=== PATIENT | male | born 1965 | race Caucasian/White ===

== ENCOUNTER 2019-06-14 07:38 | Outpatient (CLI) | payer OTHER, SELFPAY ==
--- NOTE | ~2019-06-14 | XR_ITS ---
EXAMINATION: XR chest 2V DATE: 06/14/2019 08:02 INDICATION: Lung nodule TECHNIQUE: PA and lateral views of the chest are obtained. COMPARISON: None available FINDINGS: There is a small right pleural effusion. Airspace opacities are present in the right middle and lower lobes. The left lung is clear. There is no pneumothorax. The cardiomediastinal silhouette is normal. There is mild thoracic spondylosis. IMPRESSION: 1. Small right pleural effusion. 2. Airspace opacities of the right middle and lower lobes, consistent with atelectasis versus pneumon ia. Reviewed, dictated and finalized at location A. IMPRESSION: 1. Small right pleural effusion. 2. Airspace opacities of the right middle and lower lobes, consistent with atel ectasis versus pneumonia.
== END 2019-06-14 07:39 | disposition home or self-care (01) ==
PROVIDERS: PCP Registered Nurse
DX: R91.1 Solitary pulmonary nodule (principal); J90 Pleural effusion, not elsewhere classified; R91.8 Other nonspecific abnormal finding of lung field
CPT/HCPCS: 71046

== ENCOUNTER 2019-06-28 07:26 | Outpatient (CLI) | payer OTHER, SELFPAY ==
--- NOTE | ~2019-06-28 | XR_ITS ---
XR chest 2V 06/28/2019 08:01 Indication: Postop surgical removal of lung nodule. Procedure: PA and lateral views of the chest Comparison: 06/14/2019 Findings: Heart size is normal. Left lung clear. There is right basilar airspace consolidation. Small right pleural effusion. No pneumothorax. No edema. There are right fifth and sixth rib fractures. Impression: 1: Airspace consolidation right mid and lower lung which may be atelectasis or pneumonia. Correlate f or site of prior surgery. 2: Small right pleural effusion. 3: Right fifth and sixth rib fractures. Reviewed, dictated and finalized at location A. Impression: 1: Airspace consolidation right mid and lower lung which may be atelectasis or pneumonia. Correlate for site of prior surgery. 2: Small right pleural effusion. 3: Right fifth and sixth rib fractures.
== END 2019-06-28 07:27 | disposition home or self-care (01) ==
PROVIDERS: PCP Registered Nurse
DX: R91.1 Solitary pulmonary nodule (principal); S22.41XA Multiple fractures of ribs, right side, initial encounter for closed fracture; X58.XXXA Exposure to other specified factors, initial encounter
CPT/HCPCS: 71046

== ENCOUNTER 2022-05-11 12:19 | Emergency (ER) | payer OTHER, SELFPAY ==
--- NOTE | ~2022-05-11 | XR_ITS ---
XR chest 2V DATE: 05/11/2022 12:43 INDICATION: Cough, shortness of breath. History of lung cancer, right lower lobectomy TECHNIQUE: 2 views COMPARISON: 06/28/2019 PA and lateral chest FINDINGS: Loss of right lung consistent with history of right lower lobectomy for lung cancer. Normal heart size. No pulmonary infiltrate or consolidation, pleural effusion or pulmonary vascular c ongestion or pneumothorax is evident. Degenerative spurring of the thoracic and lumbar spine. IMPRESSION: Status post right lower lobectomy for lung cancer Reviewed, dictated and finalized at location A. 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
[2022-05-11 12:26] VITALS: BP 146/72; PULSE 80; RESP 20; TEMP 36.5; O2SAT 98
[2022-05-11 12:28] VITALS: BP 146/72; PULSE 80; RESP 20; TEMP 36.5; O2SAT 98
--- NOTE | 2022-05-11 12:52 | ED.URI ---
HPI - URI/Sore Throat General Chief Complaint: Upper Respiratory Infection Stated Complaint: Congestion,Cough Time Seen by Provider: 05/11/22 12:31 Source: patient Mode of arrival: ambulatory Limitations: no limitations History of Present Illness HPI Narrative: Patient presents today complaining of a 3 week history of productive cough, shortness of breath with exertion x2 weeks, wheezing. Denies fever, congestion, rhinorrhea, sore throat. Patient has history of lung cancer with right lower lobe lobectomy in 2019 and was subsequently diagnosed with asthma. He has never been a smoker. He called his haul cane brakeman on 05/02/2022 and was called in a Z-Alex and Ushahidi Dosepak for his symptoms. States he took all of these medications without relief of symptoms. He has also been trying NyQuil and Sudafed without relief. Related Data Home Medications Medication Instructions Recorded Confirmed amlodipine 10 mg tablet 10 mg PO DAILY 01/28/19 05/11/22 cetirizine 10 mg capsule (Zyrtec) 10 mg PO DAILY 01/28/19 05/11/22 pravastatin 20 mg tablet 20 mg PO DAILY 01/28/19 05/11/22 albuterol sulfate 90 mcg/actuation 2 puff inhalation PRN PRN 05/11/22 05/11/22 aerosol inhaler Shortness Of Breath Or Wheezing fluticasone fur. 100 mcg-umeclid 1 inh inhalation DAILY 05/11/22 05/11/22 62.5 mcg-vilant 25 mcg inhalat.powder (Trelegy Ellipta) montelukast 10 mg tablet 10 mg PO HS 05/11/22 05/11/22 pantoprazole 40 mg tablet,delayed 40 mg PO DAILY 05/11/22 05/11/22 release Allergies Allergy/AdvReac Type Severity Reaction Status Date / Time No Known Allergies Allergy Mild Verified 05/11/22 12:25 Review of Systems Review of Systems: CONSTITUTIONAL: Denies body aches, fever, chills, or sweats. EYES: Denies visual changes, redness, or discharge. ENT: Denies rhinorrhea, congestion, sore throat, or otalgia. CARDIOVASCULAR: Denies chest pain, palpitations, or edema. RESPIRATORY: + cough, shortness of breath, wheezing GASTROINTESTINAL: Denies abdominal pain, nausea, vomiting, or diarrhea. GENITOURINARY: Denies dysuria or hematuria. SKIN: Denies rash, itching, or wounds. MUSCULOSKELETAL: Denies back pain, joint pain, or myalgia. NEUROLOGIC: Denies headache, numbness, tingling, or weakness. PSYCH: Denies depression or anxiety. FOR[facility]LY [facility], [facility] Past Medical History Medical History (Updated 05/11/22 @ 13:33 by Imelda Raines, DOG SITTER, ) Asthma Dyslipidemia History of hypertension Lung cancer Surgical History Surgical History (Updated 05/11/22 @ 12:54 by Imelda Raines, [facility], ) History of appendectomy S/P lobectomy of lung Social History Social History Smoking status: Never smoker Gender identity (if verbalized by the patient): Male Comments At time of signature, I have reviewed and agree with nursing past medical, surgical, social and family history unless otherwise noted. Please see nursing chart for further information. There is no relevant family history pertinent to the presenting complaint Exam Narrative: GENERAL: Well-appearing, well-nourished, and in no acute distress. HEAD: Normocephalic, atraumatic. EYES: EOMI. No redness or drainage. Conjunctivae normal. ENT: Mucous membranes pink and moist. Nares clear. No rhinorrhea. TMs normal bilaterally. Throat normal. Uvula midline. NECK: Normal AROM. Supple. No lymphadenopathy. CHEST: No respiratory distress. Inspiratory and expiratory wheezing throughout. HEART: Regular rate and rhythm. No murmur appreciated. Normal peripheral pulses. EXTREMITIES: Normal range of motion. No edema. SKIN: Warm, dry, no rash. Capillary refill normal. Normal skin turgor. NEURO: No focal deficits. Alert and oriented x3. Gait steady. PSYCH: Normal affect. No signs of depression or anxiety. Course Course Level of Care: Express Care Visit Vital Signs Vital signs: Vital Signs Temperature 97.7 F 05/11/22 12:26 Pulse Rate
[2022-05-11] MEDS: IPRATROPIUM BR 0.02% INH SOLN 0.5 MG/2.5 ML VIAL INHALATION (13:03)
[2022-05-11] MEDS: ALBUTEROL SULFATE NEB 2.5 MG/3 ML INH INHALATION (13:04)
[2022-05-11 13:10] VITALS: PULSE 80; RESP 20; O2SAT 98
[2022-05-11 13:28] VITALS: PULSE 92; RESP 20; O2SAT 98
== END 2022-05-11 13:40 | disposition home or self-care (01) ==
PROVIDERS: Emergency Provider Nurse Practitioner; PCP Registered Nurse
DX: J45.901 Unspecified asthma with (acute) exacerbation (principal); E78.5 Hyperlipidemia, unspecified; I10 Essential (primary) hypertension; Z85.118 Personal history of other malignant neoplasm of bronchus and lung; Z90.2 Acquired absence of lung [part of]
CPT/HCPCS: 71046; 94640; 99213; G0463

== ENCOUNTER 2022-06-19 16:19 | Emergency (ER) | payer OTHER, SELFPAY ==
--- NOTE | ~2022-06-19 | XR_ITS ---
EXAMINATION: XR foot LT min 3V DATE: 06/19/2022 16:46 INDICATION: Left foot pain TECHNIQUE: Dorsoplantar, lateral, and oblique views of the left foot were obtained. COMPARISON: None. FINDINGS: There is dorsal soft tissue swelling of the foot. Bone alignment is normal. There is no fra cture. Posterior and plantar calcaneal enthesophytes are noted. IMPRESSION: 1. No acute osseous abnormality. Reviewed, dictated and finalized at location L.
--- NOTE | 2022-06-19 16:28 | ED.LOWEXIN ---
HPI - Extremity Injury (Lower) General Chief Complaint: Extremity Injury, Lower Stated Complaint: lt foot injury Time Seen by Provider: 06/19/22 16:28 Source: patient Mode of arrival: ambulatory Limitations: no limitations History of Present Illness HPI Narrative: Patient is a 57-year-old male who presents with left foot pain and swelling after dropping a table on it while loading into a truck. States foot did not start hurting or swelling until he took his tennis shoe off and was sitting on a conference call. Patient states he then sat in the recliner with it elevated and iced his foot. Has not taken anything for pain. Reports pain is 7/10 while walking. Denies any numbness or tingling. Related Data Home Medications Medication Instructions Recorded Confirmed amlodipine 10 mg tablet 10 mg PO DAILY 01/28/19 05/11/22 pravastatin 20 mg tablet 20 mg PO DAILY 01/28/19 05/11/22 albuterol sulfate 90 mcg/actuation 2 puff inhalation PRN PRN 05/11/22 05/11/22 aerosol inhaler Shortness Of Breath Or Wheezing montelukast 10 mg tablet 10 mg PO HS 05/11/22 05/11/22 pantoprazole 40 mg tablet,delayed 40 mg PO DAILY 05/11/22 05/11/22 release fluticasone fur. 100 mcg-umeclid 2 inh inhalation DAILY 06/19/22 06/19/22 62.5 mcg-vilant 25 mcg inhalat.powder (Trelegy Ellipta) Allergies Allergy/AdvReac Type Severity Reaction Status Date / Time No Known Allergies Allergy Mild Verified 06/19/22 16:39 Review of Systems Review of Systems: All systems reviewed & are unremarkable except as noted in HPI and below Constitutional: Constitutional: Denies body ache(s), Denies fever(s), Denies headache(s), Denies malaise and Denies weakness Eyes: Eyes: Denies loss of vision ENT: Denies otalgia, Denies headache(s), Denies nasal discharge, Denies sinus pain and Denies sore throat Cardiovascular: Cardiovascular: Denies chest pain, Denies irregular heart rhythm and Denies dyspnea Respiratory: Respiratory: Denies dyspnea Gastrointestinal: Gastrointestinal: Denies abdominal pain, Denies melena, Denies hematochezia, Denies diarrhea, Denies nausea and Denies vomiting Musculoskeletal: Musculoskeletal: Denies back pain, Denies myalgias, Denies arthralgias and Reports other (Left foot pain) Integumentary/Breasts: Skin/Breast: Denies pruritus and Denies rash Neurologic: Denies headache(s), Denies loss of vision and Denies weakness Psychiatric: Psychiatric: Reports no additional psychiatric complaints PMF Past Medical History Medical History (Updated 06/19/22 @ 17:01 by Анна Claros, DRY CLEANING 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) Asthma Dyslipidemia History of hypertension Lung cancer Surgical History Surgical History (Updated 05/11/22 @ 12:54 by Imelda Raines, [facility], ) History of appendectomy S/P lobectomy of lung Social History Social History Smoking status: Never smoker Gender identity (if verbalized by the patient): Male Comments At time of signature, agree with nursing past medical, surgical, social and family history. There is no relevant family history pertinent to the presenting complaint. Exam Const: General: cooperative, healthy appearing, comfortable, no acute distress and well nourished Nutritional Appearance: well nourished Orientation/consciousness: patient oriented x3 Limitations: no limitations HENMT: Head: normal to inspection, normocephalic and atraumatic Ears: external ears normal Face/Nose/Sinus: Normal external nose present, normal facial exam and face symmetric Face and sinus: normal facial exam and face symmetric Mouth: Yes lip normal Eyes: General: appearance normal, both eyes and all related structures Alignment and Position: alignment normal and position normal Periorbital: periorbital findings normal Eyelids: eyelids normal Pupils: Equal, round and reactive pupils present EOM: EOMs intact bilaterally Neck: Neck: normal visual inspection and full ROM Chest:
[2022-06-19 16:31] VITALS: BP 147/90; PULSE 77; RESP 20; TEMP 36.1; O2SAT 100
== END 2022-06-19 17:06 | disposition home or self-care (01) ==
PROVIDERS: Emergency Provider Nurse Practitioner Family; PCP Registered Nurse
DX: S93.602A Unspecified sprain of left foot, initial encounter (principal); W20.8XXA Other cause of strike by thrown, projected or falling object, initial encounter; J45.909 Unspecified asthma, uncomplicated; E78.5 Hyperlipidemia, unspecified; I10 Essential (primary) hypertension; Z85.118 Personal history of other malignant neoplasm of bronchus and lung; Z90.2 Acquired absence of lung [part of]
CPT/HCPCS: 73630; 99213; G0463

== ENCOUNTER 2022-08-30 09:17 | Emergency (ER) | payer OTHER, SELFPAY ==
--- NOTE | ~2022-08-30 | XR_ITS ---
XR chest 2V DATE: 08/30/2022 09:51 INDICATION: Productive cough for 3 days. History of lung cancer. TECHNIQUE: 2 views COMPARISON: May 11, 2022 2 view chest FINDINGS: Status post right thoracotomy and partial pneumonectomy, with chronic right lung volume los s, chronic blunting of the right costophrenic angle. There is stable chronic right basilar atelectasis or scarring. No interval pulmonary infiltrate or consolidation, pleural effusion, probably vascular congestion or pneumothorax since May 11, 2022 is evident. Heart size is normal. Diffuse idiopathic skeletal hyperostosis of the thoracic spine. Degenerative spurring of the thoracic and lumbar spine is noted. IMPRESSION: Status post right thoracotomy and partial pneumonectomy; no significant change since 2022 Reviewed, dictated and finalized at location A. IMPRESSION: Status post right thoracotomy and partial pneumonectomy; no signifi cant change since May 11, 2022
[2022-08-30 09:20] VITALS: BP 152/83; PULSE 84; RESP 18; TEMP 36.3; O2SAT 98
--- NOTE | 2022-08-30 09:35 | ED.URI ---
HPI - URI/Sore Throat General Chief Complaint: Upper Respiratory Infection Stated Complaint: Congestion,Wheezing Time Seen by Provider: 08/30/22 09:35 Source: patient Mode of arrival: ambulatory Limitations: no limitations History of Present Illness HPI Narrative: 57 y/o male with history of asthma and lung cancer ( right lower lobectomy 2019) presented for c/o cough and crackling in chest for about 3 days. Endorses chronic cough, currently cough is wet but not productive. Also reports head fullness and bilateral ear pressure. Patient's symptoms started the day after arriving in [place]. States he felt symptoms were worse when laying down. When he returned home yesterday, he was able to lay flat without difficulty. Patient contacted utility forester yesterday, started on Z-pack and steroids. Taking scheduled Trelegy and albuterol PRN. Denies chest pain, palpitations, sob, n/v/d/f/c. Scheduled to establish with pattern fitter. Related Data Home Medications Medication Instructions Recorded Confirmed amlodipine 10 mg tablet 10 mg PO DAILY 01/28/19 08/30/22 pravastatin 20 mg tablet 20 mg PO DAILY 01/28/19 08/30/22 albuterol sulfate 90 mcg/actuation 2 puff inhalation PRN PRN 05/11/22 08/30/22 aerosol inhaler Shortness Of Breath Or Wheezing montelukast 10 mg tablet 10 mg PO HS 05/11/22 08/30/22 pantoprazole 40 mg tablet,delayed 40 mg PO DAILY 05/11/22 08/30/22 release fluticasone fur. 100 mcg-umeclid 2 inh inhalation DAILY 06/19/22 08/30/22 62.5 mcg-vilant 25 mcg inhalat.powder (Trelegy Ellipta) Allergies Allergy/AdvReac Type Severity Reaction Status Date / Time No Known Allergies Allergy Mild Verified 08/30/22 09:18 Review of Systems Review of Systems: CONSTITUTIONAL: Denies body aches, fever, chills, or sweats. EYES: Denies visual changes, redness, or discharge. ENT: Denies rhinorrhea, congestion, sore throat, or otalgia. CARDIOVASCULAR: Denies chest pain, palpitations, or edema. RESPIRATORY: Reports cough, wheezing. Denies sob GASTROINTESTINAL: Denies abdominal pain, nausea, vomiting, or diarrhea. GENITOURINARY: Denies dysuria or hematuria. SKIN: Denies rash, itching, or wounds. MUSCULOSKELETAL: Denies back pain, joint pain, or myalgia. NEUROLOGIC: Denies headache, numbness, tingling, or weakness. All systems reviewed & are unremarkable except as noted in HPI and below PMFSH Past Medical History Medical History Asthma Dyslipidemia History of hypertension Lung cancer Surgical History Surgical History History of appendectomy S/P lobectomy of lung Social History Social History Smoking status: Never smoker Gender identity (if verbalized by the patient): Male Comments At time of signature, I have reviewed and agree with nursing past medical, surgical, social and family history unless otherwise noted. Please see nursing chart for further information. There is no relevant family history pertinent to the presenting complaint Exam Narrative: GENERAL: Well-appearing, in no acute distress. EYES: EOMI. No redness or drainage. Conjunctivae normal. ENT: Mucous membranes pink and moist. No rhinorrhea. TMs normal bilaterally. Throat normal. Uvula midline. NECK: Normal AROM. Supple. CHEST: No respiratory distress. Absent RLL. Mild exp Wheezing to all ashraf. HEART: Regular rate and rhythm. No murmur appreciated. ABDOMEN: Soft, nontender, nondistended, normal active bowel sounds. EXTREMITIES: Normal range of motion. No edema. SKIN: Warm, dry, no rash. Capillary refill normal. Normal skin turgor. NEURO: Alert and oriented x3. Gait steady. PSYCH: Normal affect. Course Course Emergency Course: Patient is aware of diagnosis, understands and agrees to treatment plan. Anticipatory guidance given. Patient agrees to follow-up
== END 2022-08-30 10:28 | disposition home or self-care (01) ==
PROVIDERS: Emergency Provider Nurse Practitioner Family; PCP Registered Nurse
DX: J40 Bronchitis, not specified as acute or chronic (principal); Z85.118 Personal history of other malignant neoplasm of bronchus and lung; Z90.2 Acquired absence of lung [part of]; E78.5 Hyperlipidemia, unspecified; I10 Essential (primary) hypertension
CPT/HCPCS: 71046; 99213; G0463

== ENCOUNTER 2022-12-12 13:30 | Emergency (ER) | payer OTHER, SELFPAY ==
--- NOTE | ~2022-12-12 | XR_ITS ---
EXAMINATION: XR foot LT min 3V DATE: 12/12/2022 13:55 INDICATION: Left fifth metatarsal pain post injury 2 days prior TECHNIQUE: Dorsoplantar, two oblique and lateral views of the left foot were obtained. COMPARISON: 06/19/2022 FINDINGS: Nondisplaced transverse fracture crossing the proximal metaphysis of the left fifth metatarsal. The m edial margin of the fracture is located 1 cm distal to the proximal articular surface. Alignment shefali ins essentially anatomic. No other fractures identified. 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 Remaining joint spaces appear relatively preserved. Small Achilles and plantar calcan eal spurs. Soft tissue swelling at the dorsolateral aspect of the mid and proximal forefoot in the re gion of the fracture. No ankle joint effusion. IMPRESSION: 1. Nondisplaced proximal metaphyseal fracture of the left fifth metatarsal. Reviewed, dictated and finalized at location A.
--- NOTE | 2022-12-12 13:42 | ED.GENADULT ---
HPI - General Adult General Chief complaint: Extremity Injury, Lower Stated complaint: lt foot pain and swelling Time Seen by Provider: 12/12/22 13:42 Source: patient, RN notes reviewed and old records reviewed Mode of arrival: ambulatory Limitations: no limitations History of Present Illness HPI narrative: 57-year-old male presents to the [facility] with complaints of left pain and swelling. Patient states 2 days ago felt a pain and a pop to the lateral left foot. Tenderness to the proximal 5th metatarsal Onset (ago): day(s) (2) Related Data Home Medications Medication Instructions Recorded Confirmed amlodipine 10 mg tablet 10 mg PO DAILY 01/28/19 12/12/22 pravastatin 20 mg tablet 20 mg PO DAILY 01/28/19 12/12/22 albuterol sulfate 90 mcg/actuation 2 puff inhalation PRN PRN 05/11/22 12/12/22 aerosol inhaler Shortness Of Breath Or Wheezing montelukast 10 mg tablet 10 mg PO HS 05/11/22 12/12/22 pantoprazole 40 mg tablet,delayed 40 mg PO DAILY 05/11/22 12/12/22 release fluticasone fur. 100 mcg-umeclid 2 inh inhalation DAILY 06/19/22 12/12/22 62.5 mcg-vilant 25 mcg inhalat.powder (Trelegy Ellipta) Allergies Allergy/AdvReac Type Severity Reaction Status Date / Time No Known Allergies Allergy Mild Verified 08/30/22 09:18 Review of Systems Review of Systems: All systems reviewed & are unremarkable except as noted in HPI and below Constitutional: Constitutional: Reports no additional constitutional complaints Eyes: Eyes: Reports no additional eye complaints ENT: Reports system reviewed and no additional complaints, except as documented Cardiovascular: Cardiovascular: Reports no additional cardiovascular complaints, Denies chest pain and Denies dyspnea Respiratory: Respiratory: Reports no additional respiratory complaints, Denies chest congestion, Denies cough and Denies dyspnea Gastrointestinal: Gastrointestinal: Reports no additional gastrointestinal complaints, Denies abdominal pain, Denies nausea and Denies vomiting Musculoskeletal: Musculoskeletal: Reports as per HPI, Reports arthralgias and Reports joint swelling Integumentary/Breasts: Skin/Breast: Reports system reviewed and no additional complaints, except as docu Neurologic: Reports system reviewed and no additional complaints, except as documented Psychiatric: Psychiatric: Reports no additional psychiatric complaints Allergic/Immunologic: Allergic/Immunologic: Reports no additional allergic/immunologic complaints [facility] Past Medical History Medical History Asthma Dyslipidemia History of hypertension Lung cancer Surgical History Surgical History History of appendectomy S/P lobectomy of lung Social History Social History Smoking status: Never smoker Gender identity (if verbalized by the patient): Male Comments At the time of my signature, I reviewed and agree with the nursing past medical, surgical, social, and family history. There is no relevant family history pertinent to the patient complaint. Exam Const: General: cooperative, healthy appearing, comfortable, no acute distress, well developed, alert and well nourished Nutritional Appearance: well nourished and obese Orientation/consciousness: patient oriented x3 Limitations: no limitations HENMT: Head: normal to inspection Ears: hearing grossly normal bilaterally and external ears normal Face/Nose/Sinus: Normal external nose present, Normal nares present, Normal nasal mucous membranes and turbinates present, normal facial exam and face symmetric Face and sinus: normal facial exam and face symmetric Eyes: General: appearance normal, both eyes and all related structures Alignment and Position: alignment normal Periorbital: periorbital findings normal Pupils: Equal, round and reactive pupils present EOM: EOMs inta
[2022-12-12 13:44] VITALS: BP 139/79; PULSE 86; RESP 18; TEMP 36.6; O2SAT 97
== END 2022-12-12 15:02 | disposition home or self-care (01) ==
PROVIDERS: Emergency Provider Nurse Practitioner; PCP Registered Nurse
DX: S92.355A Nondisplaced fracture of fifth metatarsal bone, left foot, initial encounter for closed fracture (principal); E78.5 Hyperlipidemia, unspecified; I10 Essential (primary) hypertension; Z79.899 Other long term (current) drug therapy; X58.XXXA Exposure to other specified factors, initial encounter
CPT/HCPCS: 29515; 73630; 99214; G0463

== ENCOUNTER 2024-02-27 10:10 | Emergency (ER) | payer OTHER, SELFPAY ==
[2024-02-27 10:20] VITALS: BP 124/69; PULSE 92; RESP 18; TEMP 36.6; O2SAT 98
--- NOTE | 2024-02-27 10:23 | ED_ITS ---
HPI - General Adult General Chief complaint: Upper Respiratory Infection Stated complaint: Cough/congestion Time Seen by Provider: 02/27/24 10:23 Source: patient Mode of arrival: ambulatory Limitations: no limitations Related Data Home Medications ?Medication ?Instructions ?Recorded ?Confirmed ?Last Taken ?Type amlodipine 10 mg tablet 10 mg PO DAILY 01/28/19 12/12/22 Unknown History pravastatin 20 mg tablet 20 mg PO DAILY 01/28/19 12/12/22 Unknown History albuterol sulfate 90 mcg/actuation 2 puff inhalation PRN PRN 05/11/22 12/12/22 Unknown History aerosol inhaler Shortness Of Breath Or Wheezing montelukast 10 mg tablet 10 mg PO HS 05/11/22 12/12/22 Unknown History pantoprazole 40 mg tablet,delayed 40 mg PO DAILY 05/11/22 12/12/22 Unknown History release fluticasone fur. 100 mcg-umeclid 2 inh inhalation DAILY 06/19/22 12/12/22 Unknown History 62.5 mcg-vilant 25 mcg inhalat.powder (Trelegy Ellipta) Allergies Allergy/AdvReac Type Severity Reaction Status Date / Time No Known Allergies Allergy Mild Verified 02/27/24 10:26 Review of Systems Review of Systems: CONSTITUTIONAL: Denies fever, chills, or sweats. EYES: Denies visual changes, redness, or discharge. ENT: Denies rhinorrhea, congestion, sore throat, or otalgia. CARDIOVASCULAR: Denies chest pain, palpitations, or edema. RESPIRATORY: Denies cough or dyspnea. GASTROINTESTINAL: Denies abdominal pain, nausea, vomiting, or diarrhea. GENITOURINARY: Denies dysuria or hematuria. SKIN: Denies rash or itching. MUSCULOSKELETAL: Denies back pain, joint pain, or myalgia. NEUROLOGIC: Denies headache, numbness, or weakness. PSYCHIATRIC: Denies anxiety or depression. [facility]LY [facility] Past Medical History Medical History Asthma Lung cancer Dyslipidemia History of hypertension Surgical History Surgical History S/P lobectomy of lung History of appendectomy Social History Social History Smoking status: Never smoker Gender identity (if verbalized by the patient): Male Comments At the time of my signature I agree with nursing past medical history, surgical, social, and family history. There is no relevant family history pertinent to the presenting complaint. Exam Narrative: GENERAL: Well-appearing, well-nourished, and in no acute distress. HEAD: Normocephalic, atraumatic. EYES: PERRLA and EOMI. ENT: Nares clear, no rhinorrhea or epistaxis. Mucous membranes moist. NECK: Supple. No lymphadenopathy CHEST: Clear to auscultation. No respiratory distress. HEART: Regular rate and rhythm. No murmur heard. Normal peripheral pulses. ABDOMEN: Soft, nontender, nondistended, normal active bowel sounds. EXTREMITIES: Normal range of motion. No edema. SKIN: Warm, dry, no rash. NEURO: No focal deficits. Alert and oriented x3. Course Course Level of Care: Express Care Visit Reevaluation(s) Reevaluation #1: Re-evaluated patient after his DuoNeb was completed. Patient continues to have slight wheezing noted to the bilateral lower lobes but is improved. Noti fied patient that he is positive today for influenza A we will start him on antivirals as well as Tessalon Perles and inhaler for the cough. I would like to hold off on any steroids given the fact that he is on chemo right now on highly recommend he call his oncologist and let them know that he is positive for influenza A. Discussed with patient if his symptoms worsen at all that he would need to go the ER for further evaluation. Patient verbalized understanding denies any other questions or concerns at this time. Date: 02/27/24 Time: 11:13 Vital Signs Vital signs: Vital Signs Temperature 36.6 C 02/27/24 10:20 Pulse Rate 92 02/27/24 10:20 Respiratory Rate 18 02/27/24 10:20 Blood Pressure 124/69 02/27/24 10:20 Pulse Oximetry 98 02/27/24 10:20 Oxygen Delivery Room Air 02/27/24 10:20 Temperature 36.6 C 02/27/24 10:20 Pulse Rate 92 02/27/24 10:20 Respiratory Rate 18 02/27/24 10:20 Blood Pressure 124/69 02/27/24 10:20 Pulse Oximetry 98 02/27/24 10:20 Oxygen Delivery Room Air 02/27/24 10:20 vital signs reviewed. Medical Decision Making Differential Diagnosis Differential Diagnosis: Differential diagnosis: Allergic rhinitis, chronic sinusitis, tonsillitis, acute sinusitis, infectious mononucleosis, seasonal influenza, pertussis, diphtheria, meningococcal disease, viral syndrome, viral bronchitis, RSV, COVID- 19 Vital Signs Vital Signs: Vital Signs Temperature 36.6 C 02/27/24 10:20 Pulse Rate 92 02/27/24 10:20 Respiratory Rate 18 02/27/24 10:20 Blood Pressure 124/69 02/27/24 10:20 Pulse Oximetry 98 02/27/24 10:20 Oxygen Delivery Room Air 02/27/24 10:20 Temperature 36.6 C 02/27/24 10:20 Pulse Rate 92 02/27/24 10:20 Respiratory Rate 18 02/27/24 10:20 Blood Pressure 124/69 02/27/24 10:20 Pulse Oximetry 98 02/27/24 10:20 Oxygen Delivery Room Air 02/27/24 10:20 Lab Data Labs: Lab Results 02/27/24 02/27/24 Range/Units 10:32 10:57 POC Nasal Swab RSV Negative (Negative) POC Influenza A Ag Positive (Negative) POC Influenza B Ag Negative (Negative) POC SARS CoV-2 Ag Negative (Negative) Critical Care Time Critical Care Time Critical Care Time: No Discharge Plan Discharge Clinical Impression: Influenza A Patient Disposition: Home, Self-Care Condition: Stable Instructions: Antibiotic Form, H1N1 Influenza (ED) Additional Instructions: Influenza (the flu) is an infection caused by the influenza virus. The flu is easily spread when an infected person coughs, sneezes, or has close contact with others. You may be able to spread the flu to others for 1 week or longer after signs or symptoms appear. DISCHARGE INSTRUCTIONS: Call your local emergency number (911 in the [place]) if: You have trouble breathing, and your lips look purple or blue. You have a seizure. Call your doctor if: You are dizzy, or you are urinating less or not at all. You have a headache with a stiff neck, and you feel tired or confused. You have new pain or pressure in your chest. Your symptoms, such as shortness of breath, vomiting, or diarrhea, get worse. Your symptoms, such as fever and coughing, seem to get better, but then get worse. You have new muscle pain or weakness. You have questions or concerns about your condition or care. Medicines: You may need any of the following: Acetaminophen decreases pain and fever. It is available without a doctor's order. Ask how much to take and how often to take it. Follow directions. Read the labels of all other medicines you are using to see if they also contain acetaminophen, or ask your doctor or pharmacist. Acetaminophen can cause liver damage if not taken correctly. Do not use more than 4 grams (4,000 milligrams) total of acetaminophen in one day. NSAIDs , such as ibuprofen, help decrease swelling, pain, and fever. This medicine is available with or without a doctor's order. NSAIDs can cause stomach bleeding or kidney problems in certain people. If you take blood thinner medicine, always ask your healthcare provider if NSAIDs are safe for you. Always read the medicine label and follow directions. Rest as much as you can to help you recover. Patient Language: Guyanese Prescriptions: New oseltamivir [Tamiflu] 75 mg capsule 75 mg PO Q12H 5 Days Qty: 10 0RF benzonatate 200 mg capsule 200 mg PO TID PRN (Reason: cough) 10 Days Qty: 30 0RF albuterol sulfate [Ventolin HFA] 90 mcg/actuation HFA aerosol inhaler 2 puff INHALATION .Q4 hours PRN (Reason: cough) Qty: 18 0RF No Action pantoprazole 40 mg tablet,delayed release (DR/EC) 40 mg PO DAILY montelukast 10 mg tablet 10 mg PO HS albuterol sulfate 90 mcg/actuation HFA aerosol inhaler 2 puff INHALATION PRN PRN (Reason: Shortness Of Breath Or Wheezing) Trelegy Ellipta 100-62.5-25 mcg blister with device 2 inh INHALATION DAILY amlodipine 10 mg Tablet 10 mg PO DAILY pravastatin 20 mg Tablet 20 mg PO DAILY Follow-up/Referrals: Lizeth,TJ Elizabeth [Primary Care Provider] - Stand Alone Forms: Work/School Release IP Time of Disposition: 11:12
[2024-02-27] MEDS: IPRATROPIUM 0.5 MG/ALBUTEROL SULFATE 2.5 MG AMPUL.NEB 3 ML INHALATION (10:38)
[2024-02-27 10:59] LABS: EDCOVIDSCREEN Negative (Negative)
[2024-02-27 11:00] LABS: EDRSVNEGPOS Negative (Negative)
[2024-02-27 11:00] LABS: EDINFLUASCREEN Positive (Negative); EDINFLUBSCREEN Negative (Negative)
--- OUTSIDE RECORDS SUMMARY | 2024-03-02 03:17 | XMS_ITS | Encounter Summary ---
Author Organization [facility] Address [address] [place] [address] Care Team Providers Care Machine Maintenance Servicer Name Role Phone Clara Stanley Ricardo ASSOCIATE FINANCIAL REPRESENTATIVE-SOIL BIOLOGY TEACHER Primary Care Provider Reason for Visit * Reason Comments Pain Head pt c/o constant head ache, worse at night. pt at ED at [facility] th[facility], WBC was elevated, headache has gotten worse, neck stiffness. * Auth/Cert Specialty Diagnoses / Procedures Referred By Erik [email or web address] Referred To Contact Referral ID Status Reason Start Date Expiration Date Visits Re quested Visits Authorized [id number] 1 1 Encounter Details Date Type Department Care Team (Late st Contact Info) Description 03/23/2019 11:17 AM [facility] - 03/25/2019 12:02 PM [facility] Emergency [address] [address] Kevin Meng MD [address] [facility] [place] [address] Parviz Hsu MD [address] [facility] [place] [address] Chi Valdez MD [address] [facility] [place] [id number] Keri Wood MD [address] [facility] [address] [place] [address] Emergency Medicine Discharge Disposition: Home or Self Care Social History Tobacco Use Types Packs/Day Years Used Date Smoking Tobacco: Never Alcohol Use Standard Drinks/Week Comments No 0 (1 standard drink = 0.6 oz pur e alcohol) Sex and Gender Information Value Date Recorded Sex Assigned at Not on file Gender Identity Not on file Sexual Orientation Not on file documented as of this encounter Last Filed Vital Signs Vital Sign Reading Time Taken Comments Blood Pressure 136/79 03/25/2019 7:49 AM [facility] Pulse 78 03/25/2019 7:49 AM [facility] Temperature 36.9 ??C (98.4 ??F) 03/25/2019 7:49 AM CS T Respiratory Rate 18 03/25/2019 7:49 AM [facility] Oxygen Saturation 100% 03/25/2019 7:49 AM [facility] Inhaled Oxygen Concentration - - Weight 165.6 kg (365 lb) 03/23/2019 10:50 AM [facility] Height 190.5 cm (6' 3 ) 03/23/2019 10:50 AM [facility] Body Mass Index 45.62 03/23/2019 10:50 AM [facility] documented in this encounter Functional Status Functional Status Response Date of Assess ment Is person deaf or have serious hearing difficult y? No 03/25/2019 Is person blind or have serious difficulty seein g? No 03/25/2019 Does person have serious dif ficulty walking/climbing stairs? No 03/25/2019 Does person have difficulty dressing/bathing? No 03/25/2019 Does person have difficulty doing errands alone? No 03/25/2019 Cognitive Status Response Date of Assessm ent Does person have difficulty concentrating/remembering/making decisions? No 03/25/2019 documented as of this encounter Discharge Summaries * Terrell Campbell MD - 03/25/2019 10:20 AM CST Images from the original note were not included. Physician Discharge Summary Patient ID: Kwaku Kulkarni [id number] 53 year old 1965 Admit date: 03/23/2019 Discharge date: 03/25/2019 Admitting Physician: Keri Wood MD Discharge Physician: Keri Wood MD Admission Diagnoses: No admission diagnoses are documented for this encounter. Discharge Diagnoses: Idiopathic intracranial hypertension, aseptic meningitis Discharged Condition: good Hospital Course: Pt was admitted due to new onset severe headache. CT head was normal. 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 LP was done showing an opening pressure of 28mmHg. CSF studies showed a WBC count of 178 with 83% lymphocytes. Prot 69. Culture was negative at 24 hours. Enterovirus, HSV, and crypto were negative. ID was consulted and suspected that the aseptic meningitis was secondary to virus or medication, as he was taking up to 6 doses ibuprofen per day. Headache improved. He was initiated on diamox 500 BID and topamax 50 BID for IIH. He was discharged with ophthalmology and neurology followup. Consults: ID Significant Diagnostic Studies: See hospital course Treatments: See hospital course Discharge Exam: General: Con - NAD, afebrile, obese Heent - NCAT, MMM, anicteric Neck - no neck tenderness ?? Cortical Function Mental Status Awake, alert, follows commands Orientation Person, place, time, and situation Language Fluency intact, comprehension intact, repetition intact Visual Ramirez Intact bilaterally to finger count Neglect No visual neglect noted, no tactile neglect noted ?? Cranial Nerves II Pupils 4 mm and bilaterally reactive to light. Fundoscopic exam showed Grade 1 papilledema VIII Hearing is intact bilaterally to finger rub. III/IV/ Extraocular muscles intact. No diplopia, ptosis, nystagmus or convergence abnormalities noted. IX/X Palate elevated symmetrically without phonation abnormalities noted. V Facial sensation symmetric to light touch and intact bilaterally. Corneal reflex not examined. XIHead turning and shoulder shrug are intact. VII No facial palsy noted. XII Tongue is midline with normal movements and no atrophy noted. ?? Motor Function Movement No abnormalities noted Bulk No abnormalities noted Tone No abnormalities noted ? Proximal Upper Distal Upper Proximal Lower Distal Lower Right 5/5 5/5 5/5 5/5 Left 5/5 5/5 5/5 5/5 ?? Muscle Stretch Reflexes ?? BI TRI BR PAT ACH TOES Right 2 2 2 2 1 Down Left 2 2 2 2 1 Down ?? Sensory Light Touch Symmetric and intact bilaterally Noxious Stimuli Symmetric and intact bilaterally Temperature Not tested Pallesthesia Not tested Vibration intact ?? Cerebellar FNF intact bilaterally ?? Gait Deferred Disposition: Home Patient Instructions: Current Discharge Medication List START taking these medications Instructions Authorizing Provider acetaZOLAMIDE ER 12hr 500 MG capsule Commonly known as: DIAMOX SEQUEL Quantity Dispensed: 60 capsule Take 1 capsule by mouth 2 times daily Terrell Campbell MD topiramate 50 MG tablet Commonly known as: TOPAMAX Quantity Dispensed: 60 tablet Take 1 tablet by mouth 2 times daily Terrell Campbell MD CONTINUE taking these medications which have CHANGED Instructions Authorizing Provider amLODIPine 5 MG tablet What changed: how much to take Commonly known as: NORVASC Quantity Dispensed: 30 Tab Take 1 Tab by mouth once daily Sam Dubon MD CONTINUE taking these medications which have NOT CHANGED Instructions Authorizing Provider ALPRAZolam 0.5 MG tablet Commonly known as: XANAX Take 0.5-1 mg by mouth 2 times daily as needed for Anxiety aspirin EC 81 MG tablet Commonly known as: ECOTRIN Two a day. Tommy Mcdaniels MD atorvastatin 20 MG tablet Commonly known as: LIPITOR Take 20 mg by mouth at bedtime cetirizine 5 MG tablet Commonly known as: ZyrTEC Take 5 mg by mouth once daily * FLUoxetine 40 MG capsule Commonly known as: PROzac Take 40 mg by mouth once daily Along with 20 mg for total of 60 mg daily * FLUoxetine 20 MG capsule Commonly known as: PROzac Take 20 mg by mouth once daily Along with 40 mg for total of 60 mg daily zolpidem 10 MG tablet Commonly known as: AMBIEN Take 10 mg by mouth nightly as needed for Insomnia 1 hour before bedtime * This list has 2 medication(s) that are the same as other medications prescribed for you. Read thedirections carefully, and ask your doctor or other care provider to review them with you. Signed: Terrell Campbell MD 03/25/2019 10:21 AM [facility] documented in this encounter Discharge Instructions * Discharge Instructions* Estrellita Santamraia RN - 03/25/2019 11:27 AM [facility] Patient Education Acetazolamide (By mouth) Acetazolamide (r-flwk-v-ZOLE-a-mide) Treats glaucoma, epilepsy, mountain sickness, and edema (swelling). Brand Name(s): There may be other brand names for this medicine. When This Medicine Should Not Be Used: You should not use this medicine if you have had an allergic reaction to acetazolamide or related medicine such as methazolamide (Neptazane??) or dichlorphenamide (Daranide??). How to Use This Medicine: Tablet, Long Acting Capsule ?? Your doctor will tell you how much to use and how often. ?? Use this medicine exactly as your doctor ordered. ?? May be taken with or without food. ?? Swallow the extended-release capsule whole. Do not chew, crush, or open. ?? You will need to go to the bathroom more often while you are taking this medicine. To keep from having to go too often during the night, take this medicine in the morning. If you use more than 1 dose a day, take your last dose before 6 p.m. (unless your doctor tells you differently). If a dose is missed: ?? Use the missed dose as soon as you remember. ?? If it is almost time for your next dose, wait until then to use your medicine and skip the missed dose. ?? You should not use two doses at the same time. How to Store and Dispose of This Medicine: ?? Store at room temperature, away from heat, moisture, and direct light. ?? Keep all medicine out of the reach of children. Drugs and Foods to Avoid: Ask your doctor or pharmacist before using any other medicine, including kfbm-oxo-[id number] medicines, vitamins, and herbal products. ?? Make sure your doctor knows if you are taking aspirin, amphetamines (Dexedrine??), quinidine, ormethenamine (Mandelamine??). Warnings While Using This Medicine: ?? Check with your doctor before taking if you have lung, kidney, or liver disease, diabetes, gout,or a poorly working adrenal gland (Cavalier's disease). ?? Talk with your doctor before use if you are or . ?? If you use acetazolamide for seizures, do not stop taking this medicine suddenly. You may need to use smaller and smaller doses before completely stopping the medicine. ?? Acetazolamide can make you dizzy or drowsy. Be careful if you drive a car or operate machinery. ?? You may need to eat or drink foods containing potassium, such as citrus juices, oranges, or bananas, to prevent potassium loss while taking this medicine - check with your doctor. ?? This medicine may increase the level of sugar in your blood or urine, which can worsen diabetes. Possible Side Effects While Using This Medicine: Call your doctor right away if you notice any of these side effects: ?? Irregular heartbeat ?? Trouble breathing ?? Skin rash, hives, or itching ?? Painful urination ?? Bloody stools or urine ?? Yellowing of skin or eyes ?? Severe nausea or vomiting ?? Unusual bleeding or bruising ?? Pain in joints or lower back If you notice these less serious side effects, talk with your doctor: ?? Nausea, vomiting, or diarrhea ?? Dizziness, drowsiness, or lightheadedness ?? Frequent urination ?? Appetite loss or a metallic taste in mouth ?? Numbness or tingling in hands, feet, or mouth ?? Vision changes If you notice other side effects that you think are caused by this medicine, tell your doctor. Call your doctor for medical advice about side effects. You may report side effects to FDA at 2-088-CLR-7622 ?? Copyright [employer] 2019 Information is for End User's use only and may not be sold, redistributed or otherwise used for commercial purposes. The above information is an hospital aide only. It is not intended as medical advice for individual conditions or treatments. Talk to your doctor, nurse or pharmacist before following any medical regimen to see if it is safe and effective for you. Patient Education Topiramate (By mouth) Topiramate (hmg-ZCQ-h-mate) Treats and prevents seizures, and helps prevent migraine headaches. Brand Name(s): Qudexy XR, Topamax, Trokendi XR There may be other brand names for this medicine. When This Medicine Should Not Be Used: This medicine is not right for everyone. Do not use it if you had an allergic reaction to topiramate, or if you are . How to Use This Medicine: Capsule, Long Acting Capsule, Tablet ?? Take your medicine as directed. Your dose may need to be changed several times to find what works best for you. ?? Tablet: Swallow whole. Do not break, crush, or chew the tablet. It has a very bitter taste. ?? Capsule or extended-release capsule: Do not crush or chew the capsule. Swallow whole or open thecapsule and pour the medicine into a small amount (1 teaspoon) of soft food, such as applesauce. Swallow the mixture right away without chewing. Do not store the mixture for use at a later time. ?? Drink extra fluids so you will urinate more often and help prevent kidney problems. ?? This medicine should come with a Medication Guide. Ask your pharmacist for a copy if you do not have one. ?? Missed dose: Take a dose as soon as you remember. If it is almost time for your next dose, wait until then and take a regular dose. Do not take extra medicine to make up for a missed dose. If you miss a dose or forget to use your medicine, use it as soon as you can. If your next regular dose of Topamax?? is less than 6 hours away, wait until then to use the medicine and skip the missed dose. If you miss more than 1 dose of Topamax??, call your doctor for instructions. ?? Store the medicine in a closed container at room temperature, away from heat, moisture, and direct light. Drugs and Foods to Avoid: Ask your doctor or pharmacist before using any other medicine, including kjaz-npg-vdlrmip medicines, vitamins, and herbal products. ?? Do not drink alcohol with Qudexy??? XR or Topamax??. Do not drink alcohol for 6 hours before and6 hours after you take the Trokendi XR??? capsule. ?? Some medicines can affect how topiramate works. Tell your doctor if you are using acetazolamide,dichlorphenamide, dichloralphenazone, digoxin, lithium, metformin, zonisamide, other medicine for seizures (such as carbamazepine, phenytoin, valproic acid), or control pills. ?? Tell your doctor if you are using any medicine that makes you sleepy, such as allergy medicine or narcotic pain medicine. Warnings While Using This Medicine: ?? It is not safe to take this medicine during . It could harm an unborn baby. Tell your doctor right away if you become . ?? Tell your doctor if you are , or if you have kidney disease, liver disease, glaucoma, lung or breathing problems, osteoporosis, or a history of depression or mood disorders. Tell yourdoctor if you are on a ketogenic diet (high in fat and low in carbohydrates). ?? This medicine may cause the following problems: ? Eye pain or vision changes, including glaucoma ? Changes in body temperature ? Metabolic acidosis (too much acid in the blood) ? Kidney stones ?? This medicine may increase depression or thoughts of suicide. Tell your doctor right away if youstart to feel more depressed or think about hurting yourself. ?? This medicine may make you dizzy, drowsy, or tired. Do not drive or do anything else that could be dangerous until you know how this medicine affects you. ?? Do not stop using this medicine suddenly. Your doctor will need to slowly decrease your dose before you stop it completely. ?? Your doctor will do lab tests at regular visits to check on the effects of this medicine. Keep all appointments. ?? Keep all medicine out of the reach of children. Never share your medicine with anyone. Possible Side Effects While Using This Medicine: Call your doctor right away if you notice any of these side effects: ?? Allergic reaction: Itching or hives, swelling in your face or hands, swelling or tingling in your mouth or throat, chest tightness, trouble breathing ?? Bloody or cloudy urine, painful urination, sudden lower back or stomach pain ?? Changes in vision, eye pain ?? Confusion, problems with walking, clumsiness, dizziness, or trouble talking, concentrating, or remembering ?? Feeling agitated, depressed, nervous, or irritable, thoughts of hurting yourself or others, unusual mood or behavior ?? Fever, decreased sweating ?? Numbness, tingling, or burning pain in your hands, arms, legs, or feet ?? Rapid, deep breathing, loss of appetite, fast or uneven heartbeat ?? Vomiting, unusual drowsiness, tiredness, or weakness If you notice these less serious side effects, talk with your doctor: ?? Change in taste ?? Nausea, diarrhea ?? Stuffy or runny nose ?? Weight loss If you notice other side effects that you think are caused by this medicine, tell your doctor. Call your doctor for medical advice about side effects. You may report side effects to FDA at 0-387-YGQ-5067 ?? Copyright [employer] 2019 Information is for End User's use only and may not be sold, redistributed or otherwise used for commercial purposes. The above information is an hospital aide only. It is not intended as medical advice for individual conditions or treatments. Talk to your doctor, nurse or pharmacist before following any medical regimen to see if it is safe and effective for you. [facility] documented in this encounter Medications at Time of Discharge Medication Sig Dispensed Refills Start Date End Date amLODIPine (NORVASC) 5 MG tablet Take 1 Tab by mouth once daily 30 Tab 11 02/20/2015 atorvastatin (LIPITOR) 20 MG tablet Take 20 mg by mouth at bedtime cetirizine (ZYRTEC) 5 MG tablet Take 5 mg by mouth once daily acetaZOLAMIDE ER 12hr (DIAMOX SEQUEL) 500 MG capsule Take 1 capsule by mouth 2 times daily 60 capsule 5 03/24/2019 10/03/2019 ALPRAZolam (XANAX) 0.5 MG tablet Take 0.5-1 mg by mouth 2 times daily as needed for Anxiety 11/24/2019 aspirin EC (ECOTRIN) 81 MG tablet Two a day. 0 12/06/2014 11/24/2019 FLUoxetine (PROZAC) 20 MG capsule Take 20 mg by mouth once daily Along with 40 mg for total of 60 mg daily 11/24/2019 FLUoxetine (PROZAC) 40 MG capsule Take 40 mg by mouth once daily Along with 20 mg for total of 60 mg daily 11/24/2019 topiramate (TOPAMAX) 50 MG tablet Take 1 tablet by mouth 2 times daily 60 tablet 03/24/2019 04/15/2019 zolpidem (AMBIEN) 10 MG tablet Take 10 mg by mouth nightly as needed for Insomnia 1 hour before bedtime 11/24/2019 documented as of this encounter Progress Notes * Jen Townsend RN - 03/25/2019 12:02 PM CST Discharge To Home Discharge Date: 03-25-2019 Transportation at time of Discharge: Private transportation Family Member who will transport: Pt arrnaged Comments: Pt reports adequate support to assist with recovery and is able to obtain dc medications at pt local pharmacy. No other needs identified Jen Townsend RN [phone] Care Coordination Nurse Science Editor [facility] * Jen Townsend RN - 03/25/2019 11:49 AM CST A Chart Review has been conducted by Case Management. Anticipated level of care at discharge: Home Discharge Plan: Home Basic Needs Assessment (BNA) Score: 7 Anticipated Discharge Date: 03/25/19 PCP: WILIAN Nunn Per nursing assessments: Alert and orientated. Met with pt and wifePt reports adequate support to assist with recovery Transportation (who): Single Needle Tufting Machine Operator/Support: Anna Single Needle Tufting Machine Operator person: Anna Home/Functional Status: Functional and Cognitive Status Is person deaf or have serious hearing difficulty?: No Is person blind or have serious difficulty seeing?: No Does person have serious difficulty walking/climbing stairs?: No Does person have difficulty dressing/bathing?: No Does person have difficulty doing errands alone?: No Does person have difficulty concentrating/remembering/making decisions?: No Equipment with patient: None Assistive Devices: None ?. Will continue to follow. For any questions or needs please contact: [phone] Science Editor Name/Phone number: Jen Townsend RN [facility] * Keri Wood MD - 03/25/2019 10:53 AM CST Attending note f/u: I have verified the documentation of the medical student including all history, exam, and medical decision-making details. I have personally performed a physical exan and have personally reviewed thedata to support my medical decision-making as outlined in the medical student's note and I arrive in dependentaly at the same conclusion with the exceptions as indicated below. I have verified the documentation of the resident including all history, exam, and medical decision-making details. I have personally performed a physical exan and have personally reviewed the data to support my medical decision-making as outlined in the resident's note and I arrive independentaly at the same conclusion with the exceptions that are indicated below. Date of service: 03/25/19 CC: f/u for headache Pt reports no headache with the new medications (topamax and diamox). He is headache free this morning. CSF showed pleocytosis but no growth. Negative viral and bacterial/fungal testing. On diamox 500 mg BID and on topamax 50 mg BID. No side effects. No Known Allergies Current Facility-Administered Medications Medication ??? 0.9% NaCl injection 3 mL And ??? 0.9% NaCl injection 1-10 mL ??? acetaminophen (TYLENOL) tablet 500 mg ??? acetaZOLAMIDE (DIAMOX) tablet 500 mg ??? amLODIPine (NORVASC) tablet 10 mg ??? atorvastatin (LIPITOR) tablet 20 mg ??? cyclobenzaprine (FLEXERIL) tablet 10 mg ??? gadobutrol (GADAVIST) injection ??? heparin injection 5,000 Units ??? topiramate (TOPAMAX) tablet 50 mg Exam BP 136/79 Pulse 78 Temp 98.4 ??F (36.9 ??C) (Oral) Resp 18 Ht 6' 3 (1.905 m) Wt 365 lb (165.6 kg) SpO2 100% BMI 45.62 kg/m2 AAOx4, follows commands, and responds appropriately Speech is fluent PERRL, no VF cut or defect;. No ptosis No facial weakness or asymmetry Normal tone and bulk and strength in all limbs Normal reflexes Normal cerebellar and sensory exam Data Ct Head Wo Contrast Result Date: 03/23/2019 IMPRESSION: No acute intracranial CT abnormality. Dictated by Kwaku Bañuelos MD (radiology orderly). I, Dr. JESSI OLEA have personally reviewed and interpreted this examination/study. This report was electronically signed by JESSI OLEA on 03/23/2019 11:44 AM . Mri Brain Wwo Contrast Result Date: 03/24/2019 IMPRESSION: 1. No evidence of acute cerebral infarction. 2. No large arterial occlusions or significant stenoses identified in the head. 3. No evidence of dural sinus thrombosis. I, Dr. ABRAHAM SANDERS have personally reviewed and interpreted this examination/study. This report was electronically signed by ABRAHAM SANDERS on 03/24/2019 12:10 PM . Fl Lumbar Puncture Result Date: 03/24/2019 IMPRESSION: 1. Successful lumbar puncture under fluoroscopic guidance at L4-5. Dictated by Kwaku Bañuelos MD (radiology orderly). This report was approved by Kwaku Bañuelos on 03/24/2019 9:19 AM . I, Dr. JESSI OLEA have personally reviewed and interpreted this examination/study. This report waselectronically signed by JESSI OLEA on 03/24/2019 10:18 AM . Mri Angio Brain Venous Wwo Cont Result Date: 03/24/2019 IMPRESSION: 1. No evidence of acute cerebral infarction. 2. No large arterial occlusions or significant stenoses identified in the head. 3. No evidence of dural sinus thrombosis. I, Dr. ABRAHAM SANDERS have personally reviewed and interpreted this examination/study. This report was electronically signed by ABRAHAM SANDERS on 03/24/2019 12:10 PM . Impression: 1. IIH per history of headache and elevated OP of 28. Responding to the current management and he is headache free this AM. 2. Aseptic meningitis vs (less likely) viral meningitis- negative work up for organism. Likely related to daily use of NSAIDs. ?? Plan: Continue diamox at current dose Continue topamax at current dose Avoid NSAIDs F/u with ophthalmology as scheduled F/u with me in the office in 6 weeks. Discussed that we may repeat the LP at that time if needed tofollow on the current findings. D/c home today ?? Keri Wood M.D Attending [facility] * Dagoberto Garner - 03/24/2019 12:13 PM CST Neurology Progress Note Patient: Kwaku Kulkarni Room: 508 Age: [age] year old Subjective: Kwaku Kulkarni is a 53 year old male with 1 month hx of progressive frontal headache associated with nausea, vomiting, and photophobia. Overnight: Had headache overnight but was relieved with acetaminophen and Flexeril. Did not report nausea, photophobia, phonophobia, or diplopia overnight. Objective: BP 159/78 Pulse 64 Temp 97.9 ??F (36.6 ??C) (Oral) Resp 18 Ht 6' 3 Wt 365 lb SpO2 100% BMI 45.62 kg/m2 Temp (30hrs) Max:97.9 ??F (36.6 ??C) Body mass index is 45.62 kg/m??. Exam: General: Con - NAD, afebrile Heent - NCAT, MMM, anicteric Ext: No c/c/e, 2+ dpp, normal ROM Cortical Function Mental Status Awake, alert, follows commands Orientation Person, place, time, and situation Language Fluency intact, comprehension intact, repetition intact Visual Ramirez Intact bilaterally to confrontation Neglect No visual neglect noted, no tactile neglect noted Cranial Nerves II: pupils 4 mm and bilaterally reactive to light. Fundoscopic exam reveals possible grade 1 papilledema III/IV/: Extraocular muscles intact. No diplopia, ptosis, nystagmus noted. VII: No facial palsy noted Motor Function Movement No abnormalities noted Bulk No abnormalities noted Tone No abnormalities noted Proximal Upper Distal Upper Proximal Lower Distal Lower Right 5/5 5/5 5/5 5/5 Left 5/5 5/5 5/5 5/5 Labs: Recent Results (from the past 24 hour(s)) CBC W AUTO DIFFERENTIAL Collection Time: 03/23/19 12:23 PM Result Value Ref Range WBC 12.7 (H) 3.5 - 10.5 10??3/uL RBC 4.92 4.30 - 5.70 10??6/uL Hemoglobin 14.1 13.5 - 17.5 g/dL Hematocrit 42.2 39.0 - 50.0 % MCV 85.8 81.0 - 97.0 fL MCH 28.7 28.0 - 34.0 pg MCHC 33.4 32.0 - 36.0 g/dL Platelet Count 308 150 - 400 10??3/uL RDW-SD 39.8 36.0 - 50.0 fL RDW-CV 12.7 11.2 - 14.8 % MPV 11.1 9.3 - 12.8 fL nRBC Absolute 0.00 0 10??3/uL nRBC Auto 0.0 0 /100 WBC Neutrophils % 74.2 (H) 35.0 - 70.0 % Lymphocytes % 14.6 (L) 19.7 - 55.1 % Monocytes % 9.1 3.0 - 15.0 % Eosinophils % 1.0 0.0 - 6.0 % Basophil % 0.4 0.0 - 1.5 % Neutrophils Absolute 9.4 (H) 1.6 - 7.0 10??3/uL Lymphocyte Absolute 1.9 0.8 - 2.9 10??3/uL Monocytes Absolute 1.16 (H) 0.14 - 0.66 10??3/uL Eosinophils Absolute 0.13 0.00 - 0.45 10??3/uL Basophils Absolute 0.05 0.00 - 0.06 10??3/uL Immature Granulocytes % 0.7 0.0 - 1.0 % COMPREHENSIVE METABOLIC PANEL Collection Time: 03/23/19 12:23 PM Result Value Ref Range BUN 12 7 - 26 mg/dL Creatinine 0.8 0.6 - 1.2 mg/dL Sodium 134 (L) 136 - 145 mmol/L Potassium 4.2 3.5 - 4.5 mmol/L Chloride 100 98 - 107 mmol/L CO2 23 22 - 29 mmol/L Glucose 91 70 - 115 mg/dL Calcium 9.8 8.4 - 10.2 mg/dL Protein Total 7.9 6.0 - 8.3 g/dL Albumin 4.1 3.4 - 5.0 g/dL Bilirubin Total 0.5 0.2 - 1.2 mg/dL Alkaline Phosphatase 82 40 - 150 Units/L ALT 17 0 - 55 Units/L AST 14 5 - 34 Units/L Anion Gap 15 8 - 18 BUN/Creatinine Ratio 15 7 - 23 Osmolality Calculated 277 270 - 300 mOsm/kg Albumin/Globulin Ratio 1.1 1.1 - 2.3 eGFR >60 >60 mL/min/1.73 m2 URINALYSIS W/MICROSCOPIC NO CULTURE Collection Time: 03/23/19 2:06 PM Result Value Ref Range Color UA Yellow Straw, Yellow, Colorless Clarity UA Slt Cloudy Clear, Slt Cloudy Specific [place] UA 1.005 1.005 - 1.030 pH UA 6.0 5.0 - 8.0 pH Protein UA Negative Negative mg/dL Glucose UA Negative Negative mg/dL Ketone UA Negative Negative mg/dL Bilirubin UA Negative Negative mg/dL Blood UA Negative Negative Nitrite UA Negative Negative Leukocyte Esterase Negative Negative Urobilinogen UA Negative Negative mg/dL RBC UA 0-2 None Seen, 0-2, 3-5 /HPF WBC UA 0-5 None Seen, 0-5 /HPF Bacteria UA Trace None, Trace /HPF Squamous Epithelial Cells UA 0-2 None Seen, 0-2 /HPF BLOOD GASES ALEX Collection Time: 03/23/19 11:04 PM Result Value Ref Range pH Mixed Venous 7.43 (H) 7.30 - 7.40 pCO2 Mixed Venous 37 (L) 40 - 46 mmHg pO2 Mixed Venous 51 (H) 35 - 42 mmHg HCO3 Mixed Venous 23.9 22.0 - 26.0 mmol/L TCO2 Mixed Venous 25.0 25.0 - 29.0 mmol/L Base Excess Venous 0.0 -2.0 - 2.0 mmol/L Hemoglobin Mixed Venous 14.2 13.5 - 17.5 g/dL Oxyhemoglobin Mixed Venous 86.8 (H) 66.0 - 77.0 % Carboxyhemoglobin Venous 0.3 0.0 - 3.0 % Methemoglobin 0.2 0.0 - 2.0 % FI O2 Mixed Venous 21.0 % GLUCOSE CSF Collection Time: 03/24/19 8:53 AM Result Value Ref Range Glucose CSF 54 40 - 70 mg/dL PROTEIN CSF Collection Time: 03/24/19 8:53 AM Result Value Ref Range Protein CSF 69 (H) 15 - 45 mg/dL CELL COUNT W DIFFERENTIAL CSF Collection Time: 03/24/19 8:53 AM Result Value Ref Range Color Fluid Colorless Colorless, Straw Clarity Fluid Clear Clear Volume Fluid 1.5 mL WBC Calculation Fluid 178 (H) 0 - 5 /uL RBC Calculation 1,030 /uL Xanthochromia Fluid Negative Negative Differential Manual Differential to follow. GRAM STAIN (LAB ORDERED) Collection Time: 03/24/19 8:53 AM Result Value Ref Range Gram Stain Rare Polymorphonuclear cells Gram Stain No organisms seen DIFFERENTIAL MANUAL FLUID Collection Time: 03/24/19 8:53 AM Result Value Ref Range Lymphocytes % Fluid 83 % Monocytes % Fluid 17 % Imaging: MRI ANGIO BRAIN VENOUS WWO CONTRAST: The dural sinuses appear normal without evidence of thrombosis. The internal cerebral veins, vein of [place] and visible portions of the internal jugular veins appear normal without evidence of thrombosis. Asymmetry of the size of transverse sinuses with the right one larger than the left one, is dev elopmental. 1. No evidence of acute cerebral infarction. ?? 2. No large arterial occlusions or significant stenoses identified in the head. ?? 3. No evidence of dural sinus thrombosis. MRI BRAIN WWO CONTRAST: 1. No evidence of acute cerebral infarction. ?? 2. No large arterial occlusions or significant stenoses identified in the head. ?? 3. No evidence of dural sinus thrombosis. FL LUMBAR PUNCTURE Clear CSF was identified. A total of 12 ml of CSF was removed and placed into 4 specimen tubes. The patient tolerated the procedure well. The patient was then transferred to the emergency department bed for further observation and at least 2 hours of bedrest. ?? OPENING PRESSURE: 28cm H2O measured in the prone position at the level of the heart ?? Assessment and Plan: Kwaku Kulkarni is a 53 yo male presenting with progressive frontal headache associated with nausea, vomiting, and photophobia. His elevated opening pressure of 28 on LP and no findings of aneurysm, sinus thrombosis, or ischemia on MRI, MRA, and MRV suggest a diagnosis of idiopathic intracranial hypertension. However CSF differential showed elevated WBC w/ lymphocytosis and increased CSF protein concerning for aseptic meningitis. Patient's history of NSAID use 4-6 times per day for the past month may point to drug-induced aseptic meningitis vs viral meningitis. Patient does not appear ill and is not immunocompromised. While IIH is most likely cause of headache, we will wait for CSF results and ID consult prior to discharging patient. - acetazolamide 500 mg BID for IIH - topiramate for headache prophylaxis - consulted ID due to abnormal CSF results and further workup for possible viral aseptic menigitis - consulted ophthalmology; will f/u outpatient w/ patient in 1 month Discussed Assessment and Plan with Attending Physician, Dr. Israel Garner MS3 ER AUTOMATIC documented in this encounter Consult Notes * Ayala Schultz E - 03/24/2019 11:18 AM CST [facility] Infectious Diseases Consultation Patient Name: Kwaku Kulkarni 1965 Room: [address] [place], [place] [id number] Date of Admission: 03/23/2019 Date of Service: 03/24/2019 Primary Care Physician: Clara Stanley APRN-[employer]ER Attending Physician: Keri Wood MD Reason for consultation: possible meningitis, antibiotic recommendations HPI: Mr. Kwaku Kulkarni is a 53 year old male with PMH HTN, HLD who presented to [facility] on 03/23/2019 for chronic headache. The patient developed a mild, persistent frontal headache approximately one month ago. He tried using Tylenol and ibuprofen with minimal relief. Approximately one week ago, thepatient's headache became associated with generalized fatigue, myalgias, neck pain, facial tingling, nausea, vomiting, and lightheadedness. He presented to an OSH ED on 03/17, where a CT head was performed that was read as negative. The patient also had a flu swab done at that time which was negative. His WBC count at the OSH was 15. He was diagnosed with a viral syndrome and sent home. He states that the majority of his other symptoms have improved since 03/20, but he is still experiencing severe headache and lightheadedness, so he came to the [facility] ED on 03/23. Head CT, MRI were performed which showed no acute intracranial processes. Lumbar puncture was performed on 03/24 which showed an elevated WBC count (178) with elevated protein (69 mg/dl, normal 15-45). ID was consulted for antibiotic management of meningitis. The patient is currently resting comfortably in bed. He states that his headache is typically frontal and occasionally occipital, usually sharp/throbbing pain, and he rates pain from 6-10/10 for the last week with worse pain at night. He currently rates the pain a 2/10. He has been taking excedrin and ibuprofen 2- 3x/day. States that he has had mild neck pain for a few days, now resolved. Denies neck stiffness, new fever, new nausea/vomiting. Past Medical History: Diagnosis Date ??? Depressive disorder, not elsewhere classified ??? Generalized anxiety disorder Past Surgical History: Procedure Laterality Date ??? Appendectomy Marital status: Children: 1 Living situation: Home with and daughter Pets: Dog Smoking: None Alcohol: Occasional Illicit drugs/IV drug use: Denies Travel Hx: [place] in 01/2019, no insect bites/other known exposures Sick contacts: none Incarcerated: no hx: no STD Hx: none Sexually active: yes HIV status: unknown TB exposure: no Immunizations: subjectively up to date Flu vaccine: no in 2018 Family History Problem Relation Name Age of Onset ??? Coronary Artery Disease Father ??? Migraine Neg Hx ??? Seizures Neg Hx ??? Brain Tumor Neg Hx ??? Multiple Sclerosis Neg Hx Allergies: No Known Allergies ROS: (pertinent positives in bold, all negatives in italics) General: weight loss, decreased PO intake, fatigue, weakness, fever/chills HEENT: vision changes, hearing loss, tinnitus, rhinorrhea, hoarseness, sore throat Cardiac: chest pain, palpitations, dyspnea on exertion Respiratory: shortness of breath, wheezing, cough, sputum, hemoptysis Gastrointestinal: dysphagia, odynophagia, abdominal pain, nausea, vomiting, change in bowel habits,diarrhea, constipation Genitourinary: dysuria, hematuria hesitancy, frequency Musculoskeletal: myalgias, muscle weakness, joint pain or stiffness, limited range of motion Neurologic: numbness or tingling in extremities, dizziness, lightheadedness, headache Hematologic: easy bruising/bleeding Endocrine: thyroid problems, diabetes Skin: rashes, itching Psychiatric: recent depression, anxiety Home medications: Prior to Admission medications Medication Sig Start Date End Date Taking? Authorizing Provider acetaZOLAMIDE ER 12hr (DIAMOX SEQUEL) 500 MG capsule Take 1 capsule by mouth 2 times daily 03/24/19 Yes Terrell Campbell MD ALPRAZolam (XANAX) 0.5 MG tablet Take 0.5-1 mg by mouth 2 times daily as needed for Anxiety Nesha Otto MD amLODIPine (NORVASC) 5 MG tablet Take 1 Tab by mouth once daily 02/20/15 Sam Dubon MD aspirin EC (ECOTRIN) 81 MG tablet Two a day. 12/06/14 Tommy Mcdaniels MD atorvastatin (LIPITOR) 20 MG tablet Take 20 mg by mouth at bedtime Nesha Otto MD FLUoxetine (PROZAC) 20 MG capsule Take 20 mg by mouth once daily Along with 40 mg for total of 60 mg daily Nesha Otto MD FLUoxetine (PROZAC) 40 MG capsule Take 40 mg by mouth once daily Along with 20 mg for total of 60 mg daily Nesha Otto MD topiramate (TOPAMAX) 50 MG tablet Take 1 tablet by mouth 2 times daily 03/24/19 Yes Terrell Campbell MD zolpidem (AMBIEN) 10 MG tablet Take 10 mg by mouth nightly as needed for Insomnia 1 hour before bedtime Nesha Otto MD Inpatient medications 0.9% NaCl 3 mL Intracatheter q8h amLODIPine 5 mg Oral QDAY atorvastatin 20 mg Oral AT BEDTIME gadobutrol Intravenous Contrast - Once heparin 5,000 Units Subcutaneous q8h PRN Medications Current Abx None Prior Abx None OBJECTIVE: Vital Signs: BP 159/78 Pulse 64 Temp 97.9 ??F (36.6 ??C) (Oral) Resp 18 Ht 6' 3 (1.905 m) Wt 365 lb (165.6 kg) SpO2 100% BMI 45.62 kg/m2 Temp (24hrs), Av.7 ??F (36.5 ??C), Min:97.2 ??F (36.2 ??C), Max:97.9 ??F (36.6 ??C) PHYSICAL EXAM General: Alert, no distress, cooperative, obese Head: Normocephalic, atraumatic Eyes: PERRL, EOMs intact Nose: No deformity Mouth and Throat: Oropharynx clear, no thrush Neck: Supple, non-rigid, symmetrical, no JVD Chest wall: No tenderness or deformity Lungs: Clear to auscultation bilaterally Heart: RRR, S1, S2 normal, no murmur, click, rub or gallop Abdomen: Soft, non-distended, non-tender, +BS Back: Symmetric, no curvature. ROM normal. No CVA tenderness Extremities: Atraumatic, no cyanosis or edema; varicose vein R leg, mild venous stasis R ankle Skin: Skin color, texture, turgor normal. No rashes noted. Neurologic: Alert and oriented x 3, grossly intact Psychiatry: Appropriate mood/affect Lines: MARTA QUIROZ 03/24- Labs: CBC: Recent Labs Component Name 03/23/19 1223 12/05/14 1416 WBC 12.7* 10.7* RBC 4.92 4.55 HGB 14.1 13.3* HCT 42.2 39.7* MCV 85.8 87.3 BMP: Recent Labs Component Name 03/23/19 1223 12/05/14 1416 NA 134* - CL 100 - CO2 23 25 BUN 12 14.1 CREATININE 0.8 0.85 GLU 91 - ALB 4.1 - PROT 7.9 - estimated creatinine clearance is 180.6 mL/min (based on SCr of 0.8 mg/dL). LFTs: Recent Labs Component Name 03/23/19 1223 01/08/15 1152 12/05/14 1416 ALKPHOS 82 85 95 ALT 17 15 16 AST 14 19 20 ALBUMIN - 4.2 3.8 Coagulation: No results for input(s): PT, INR, PTT in the last 03376 hours. CSF: Fluid color: colorless Fluid clarity: clear WBC 178 RBC 1030 Xanthochromia: Negative Manual Diff: 83% lymphs, 17% monos Protein: 69 mg/dl (normal 15-45) Glucose: 58 mg/dl (normal 40-70) MICROBIOLOGY: CSF culture Culture/Gram stain: Gram stain with rare PMNs, no organisms seen HISTOPATHOLOGY: None at this admission IMAGING & PROCEDURE: FL lumbar puncture (opening pressure 28 cmHg, see above for additional data) CT head 03/24/2019: IMPRESSION: No acute intracranial CT abnormality. ?? Dictated by Kwaku Bañuelos MD (radiology orderly). ?? I, Dr. JESSI OLEA have personally reviewed and interpreted this Examination/study. MRI brain w/wo 03/24/2019: IMPRESSION: ?? 1. No evidence of acute cerebral infarction. ?? 2. No large arterial occlusions or significant stenoses identified in the head. ?? 3. No evidence of dural sinus thrombosis. ?? I, Dr. ABRAHAM SANDERS have personally reviewed and interpreted this examination/study. MRI angio brain 03/24/2019: IMPRESSION: ?? 1. No evidence of acute cerebral infarction. ?? 2. No large arterial occlusions or significant stenoses identified in the head. ?? 3. No evidence of dural sinus thrombosis. ?? I, Dr. ABRAHAM SANDERS have personally reviewed and interpreted this examination/study. ASSESSMENT AND RECOMMENDATIONS: Kwaku Kulkarni is a 53 year old male with PMH HTN, HLD who presented to [facility] with headache of 1 month duration. #Headache - IIH vs meningitis - CSF cell count and differential, protein level, glucose level suggestive of viral meningitis vs drug-induced aseptic meningitis > bacterial meningitis - Acute worsening of headache in the last week may be suggestive of infectious etiology - High opening CSF pressure is possible in fungal etiology as well - CSF cultures pending, gram stain with rare PMNs, no organisms identified Plan/Recommendations: - Follow up CSF cultures - Recommend sending CSF for HSV PCR, enterovirus PCR, Cryptococcus Ag, VDRL - Recommend HIV testing - No antibiotic treatment recommended at this time Discussed with ID attending, Dr. Gross. Thank you for allowing us to participate in the care of this patient. ID will sign off at this time, please call with any questions or concerns. Primary team: Neurology (Plan discussed with primary team) >35 minutes spent on the care of this patient. > 50% was spent in counseling and coordinationof care that included the patient and the primary team. Ayala Schultz, MS4 Infectious Disease (Team 1) ER AUTOMATIC * Justina Phillips MD - 03/24/2019 11:08 AM CST [facility] Infectious Diseases Consultation Patient Name: Kwaku Kulkarni 1965 Room: [facility] Date of Admission: 03/23/2019 Date of Service: 03/24/2019 Primary Care Physician: Clara Stanley APRN-RAEANN Attending Physician:Chi Valdez MD Reason for ID consultation: possible meningits SUBJECTIVE & INTERVAL HISTORY: Kwaku Kulkarni is a 53 year old male H HTN, HLD who presented to [facility] on 03/23/2019 for chronic headache. The patient developed a mild, persistent frontal headache approximately one month ago. He tried using Tylenol and ibuprofen with minimal relief. Approximately one week ago, the patient's headache became associated with generalized fatigue, myalgias, neck pain, facial tingling, nausea, vomiting, and lightheadedness. He presented to an OSH ED on 03/17, where a CT head was performed that was read as negative. The patient also had a flu swab done at that time which was negative. His WBC count at the OSH was 15. He was diagnosed with a viral syndrome and sent home. He states that the majority of hisother symptoms have improved since 03/20, but he is still experiencing severe headache and lightheadedness, so he came to the [facility] ED on 03/23. Head CT, MRI were performed which showed no acute intracranial processes. Lumbar puncture was performed on 03/24 which showed an elevated WBC count (178) with elevated protein (69 mg/dl, normal 15-45). ID was consulted for antibiotic management of meningitis. Subjectively: Patient seen and examined. Headache resolving, pain a 2/10. No fevers or chills. No nausea,vomitingor diarrhea. Denies neck stiffness. Past Medical History: Past Medical History: Diagnosis Date ??? Depressive disorder, not elsewhere classified ??? Generalized anxiety disorder Past Surgical History: Past Surgical History: Procedure Laterality Date ??? Appendectomy Last dental visit: Social History: ?? Marital status: Children: 1 Living situation: Home with and daughters Pets: Dog ?? Smoking: None Alcohol: Occasional Illicit drugs/IV drug use: Denies ?? Travel [facility]: [facility] [place] in [facility], [place] for 2 days in 02/2019, no insect bites/other known exposures Sick contacts: none Incarcerated: no hx: no Family History: Family History Problem Relation Name Age of Onset ??? Coronary Artery Disease Father ??? Migraine Neg Hx ??? Seizures Neg Hx ??? Brain Tumor Neg Hx ??? Multiple Sclerosis Neg Hx Allergies: No Known Allergies ROS: (Positive findings are in bold) General: Denies weight loss, decreased PO intake, fatigue, weakness, fever/chills HEENT: As above Cardiac: Denies chest pain, palpitations, dyspnea on exertion, edema Respiratory: Denies shortness of breath, wheezing, cough, sputum, hemoptysis Gastrointestinal: Denies abdominal pain, nausea, vomiting, change in bowel habits, diarrhea, constipation Genitourinary: Denies dysuria, hematuria hesitancy, frequency Musculoskeletal: Denies muscle weakness, joint pain or stiffness, limited range of motion Neurologic: Denies numbness or tingling in extremities, dizziness, lightheadedness, headache Hematologic: Denies easy bruising/bleeding Endocrine: Denies thyroid problems, diabetes Skin: Denies rashes, itching Psychiatric: Denies recent depression, anxiety OBJECTIVE: Vital Signs: Temp: [97.2 ??F (36.2 ??C)-97.9 ??F (36.6 ??C)] 97.9 ??F (36.6 ??C) Pulse: [74-98] 98 Resp: [14-20] 20 BP: (135-185)/(61-92) 152/84 Temp (24hrs), Av.6 ??F (36.4 ??C), Min:97.2 ??F (36.2 ??C), Max:97.9 ??F (36.6 ??C) PHYSICAL EXAM: (Positive findings are in bold) General: Alert, no acute distress, AO x 3 HEENT: Normocephalic and atraumatic, PERRLA, EOMI, moist mucus membranes, conjunctivae/corneas clear, no icterus Mouth: Lips, mucosa, and tongue normal, no thrush. Teeth & gums healthy Neck: Supple, symmetrical, trachea midline, no JVD noted, no LAD Lungs: CTAB, no wheezes, crackles, rhonchi. No use of accessory breathing muscles Heart: RRR, normal S1 and S2, without murmur Abdomen: Soft, non-distended, non-tender, no hepatosplenomegaly, +BS Neurologic: Alert & oriented x 3, no focal deficits Extremities: No clubbing, cyanosis, or edema Skin: Warm and dry, no rashes noted Psychiatry: Normal mood MEDICATIONS: Current Abx: Prior Abx: Lines: Inpatient medications gadobutrol Intravenous Contrast - Once PRN Medications Home medications: Prior to Admission medications Medication Sig Start Date End Date Taking? Authorizing Provider acetaZOLAMIDE ER 12hr (DIAMOX SEQUEL) 500 MG capsule Take 1 capsule by mouth 2 times daily 03/24/19 Yes Terrell Campbell MD ALPRAZolam (XANAX) 0.5 MG tablet Take 0.5-1 mg by mouth 2 times daily as needed for Anxiety ProviderNesha MD amLODIPine (NORVASC) 5 MG tablet Take 1 Tab by mouth once daily 02/20/15 Sam Dubon MD aspirin EC (ECOTRIN) 81 MG tablet Two a day. 12/06/14 Tommy Mcdaniels MD atorvastatin (LIPITOR) 20 MG tablet Take 20 mg by mouth at bedtime ProviderNesha MD FLUoxetine (PROZAC) 20 MG capsule Take 20 mg by mouth once daily Along with 40 mg for total of 60 mg daily Nesha Otto MD FLUoxetine (PROZAC) 40 MG capsule Take 40 mg by mouth once daily Along with 20 mg for total of 60 mg daily Nesha Otto MD topiramate (TOPAMAX) 50 MG tablet Take 1 tablet by mouth 2 times daily 03/24/19 Yes Terrell Campbell MD zolpidem (AMBIEN) 10 MG tablet Take 10 mg by mouth nightly as needed for Insomnia 1 hour before bedtime ProviderNesha MD LABS CBC: Recent Labs Component Name 03/23/19 1223 12/05/14 1416 WBC 12.7* 10.7* RBC 4.92 4.55 HGB 14.1 13.3* HCT 42.2 39.7* MCV 85.8 87.3 BMP: Recent Labs Component Name 03/23/19 1223 12/05/14 1416 NA 134* - CL 100 - CO2 23 25 BUN 12 14.1 CREATININE 0.8 0.85 GLU 91 - ALB 4.1 - PROT 7.9 - estimated creatinine clearance is 180.6 mL/min (based on SCr of 0.8 mg/dL). LFTs: Recent Labs Component Name 03/23/19 1223 01/08/15 1152 12/05/14 1416 ALKPHOS 82 85 95 ALT 17 15 16 AST 14 19 20 ALBUMIN - 4.2 3.8 Coagulation: No results for input(s): PT, INR, PTT in the last 91350 hours. MICROBIOLOGY: 03/24 CSF: Fluid color: colorless Fluid clarity: clear WBC 178 RBC 1030 Xanthochromia: Negative Manual Diff: 83% lymphs, 17% monos Protein: 69 mg/dl (normal 15-45) Glucose: 58 mg/dl (normal 40-70) ? MICROBIOLOGY: 03/24 CSF culture Culture/Gram stain: Gram stain with rare PMNs, no organisms seen ?? IMAGING: FL lumbar puncture (opening pressure 28 cmHg, see above for additional data) ?? CT head 03/24/2019: IMPRESSION: No acute intracranial CT abnormality. ?? MRI brain w/wo 03/24/2019: IMPRESSION: ?? 1. No evidence of acute cerebral infarction. ?? 2. No large arterial occlusions or significant stenoses identified in the head. ?? 3. No evidence of dural sinus thrombosis. ?? MRI angio brain 03/24/2019: IMPRESSION: ?? 1. No evidence of acute cerebral infarction. ?? 2. No large arterial occlusions or significant stenoses identified in the head. ?? 3. No evidence of dural sinus thrombosis. ASSESSMENT AND RECOMMENDATIONS: #Headache with abnormal LP - Concern for possible aseptic, viral or fungal meningitis - CSF cell count and differential, protein level, glucose level - High opening CSF pressure - 03/24 CSF elevated WBC count (178) with elevated protein (69) cultures pending, gram stain with rare PMNs, no organisms identified - Follow up CSF cultures - Recommend sending CSF for HSV PCR, enterovirus PCR, Cryptococcus Ag, VDRL - Recommend HIV testing - No antibiotic treatment recommended at this time Thank you for allowing us to participate in the care of this patient. We will sign off. Please callwith questions or if any of the testing returns abnormal. Primary team:Neurology Plan discussed with primary team and Infectious disease attending Dr. Ginny KIM. Justina Phillips M.D. Infectious Diseases Team 1 ER AUTOMATIC Associated attestation - Zeeshan Gross MD - 03/24/2019 5:21 PM BUFFER AUTOMATIC I have seen and examined the patient with the mixing house operator and I agree with the findings and plan of care as documented by the resident. Briefly, Kwaku Kulkarni is a 53 year old male with PMH of HTN and HLD admitted on 03/23 for headache. He started having headache about a month ago. Headache is mostly frontal, constant, not relieved with ibuprofen or Tylenol and severity ranges 7- 10/10. He hasbeen having associated neck pain and lightheadedness for about a week. Evaluated by neurology. ID consulted for possible meningitis.. Patient claims that he has improved markedly. The headache is 2/10 now. Neck pain and lightheadedness resolved. Physical Exam General- not in acute pain or distress Neck- supple Assessment 1. Headache and neck pain with CSF pleocytosis. CSF WBC 178 (83% lymph). ?aseptic meningitis (viralvs NSAID). MRI brain showed no abnormality. Patient clinically improving. No need to start empiric antiviral or antibacterial now. Recommendations 1. HIV screen 2. HSV PCR, Enterovirus PCR, VDRL, crypto antigen on CSF Will sign off. Call us with any question. Zeeshan Gross MD, PhD * Terrell Campbell MD - 03/23/2019 1:16 PM CSTAssociated Order(s): IP CONSULT TO NEUROLOGY Neurology Consult Note Patient: Kwaku Kulkarni Age: [age] year old Admission Date and Time: 03/23/2019 Reason for consult: Headache History of Presenting Illness: Kwaku Kulkarni is a 53 year old male with HTN, HLD presents with headache. Pt was in his usual state of health until 1 month ago, when he developed mild nagging frontal headache. He took tylenol and ibuprofen, with minimal effect. One week ago, his headache became associated with generalized fatigue, myalgias, neck pain, facial tingling, nausea, vomiting, lightheadedness.He presented to [facility] ED for this. CT was reportedly negative, flu swab reportedly negative. He did have leukocytosis up to 15. He was diagnosed with a viral syndrome and discharged home with zofran and meclizine. The zofran helped the nausea. Meclizine did not help the lightheadedness. The majority of his associated symptoms have improved for the past few days, but the headache and lightheadednesson standing continues to worsen. It is frontal and sometimes occipital, sharp and throbbing, 6-10/10, worse at night. He has been taking excedrin and ibuprofen 2-3xper day every day. Lightheadedness occurs on standing. He has not had syncope. He denies vertigo or tinnitus. It is not associated with chest pain or palpitations. Recently visited [facility] in January, no insect bites or febrile illness. No history of blood clots. Past Medical History No history on file. Past Medical History: Diagnosis Date ??? Depressive disorder, not elsewhere classified ??? Generalized anxiety disorder Past Surgical History: Procedure Laterality Date ??? Appendectomy Allergies No Known Allergies Family History Family History Problem Relation Name Age of Onset ??? Coronary Artery Disease Father Social History Lives with and daughter. No smoking or drug use. Drinks alcohol occasionally. Review of Systems General - fatigue ENT - Denies dental or swallowing difficulties Cardiac - Denies chest pain or palpitations Pulmonary - Denies shortness of breath, cough, or sputum production Gastrointestinal - Denies abdominal pain or changes in bowel habits Genitourinary - Denies changes in bladder habits Endocrine - Denies heat or cold intolerance Musculoskeletal - myalgias Hematological - Denies history of malignancy or blood abnormalities Neurological - See HPI Objective: BP 154/84 Pulse 74 Temp 97.3 ??F (36.3 ??C) (Oral) Resp 14 Ht 6' 3 Wt 365 lb SpO2 96% BMI 45.62 kg/m2 Temp (30hrs) Max:97.3 ??F (36.3 ??C) Body mass index is 45.62 kg/m??. Exam: General: Con - NAD, afebrile, obese Heent - NCAT, MMM, anicteric Neck - neck tenderness around C1-C2, able to touch chin to chest with pain. Negative kernig/brudzinski Cortical Function Mental Status Awake, alert, follows commands Orientation Person, place, time, and situation Language Fluency intact, comprehension intact, repetition intact Visual Ramirez Intact bilaterally to finger count Neglect No visual neglect noted, no tactile neglect noted Cranial Nerves II Pupils 4 mm and bilaterally reactive to light. Fundoscopic exam showed Grade 1 papilledema VIII Hearing is intact bilaterally to finger rub. III/IV/ Extraocular muscles intact. No diplopia, ptosis, nystagmus or convergence abnormalities noted. IX/X Palate elevated symmetrically without phonation abnormalities noted. V Facial sensation symmetric to light touch and intact bilaterally. Corneal reflex not examined. XIHead turning and shoulder shrug are intact. VII No facial palsy noted. XII Tongue is midline with normal movements and no atrophy noted. Motor Function Movement No abnormalities noted Bulk No abnormalities noted Tone No abnormalities noted Proximal Upper Distal Upper Proximal Lower Distal Lower Right 5/5 5/5 5/5 5/5 Left 5/5 5/5 5/5 5/5 Muscle Stretch Reflexes BI TRI BR PAT ACH TOES Right 2 2 2 2 1 Down Left 2 2 2 2 1 Down Sensory Light Touch Symmetric and intact bilaterally Noxious Stimuli Symmetric and intact bilaterally Temperature Not tested Pallesthesia Not tested Vibration intact Cerebellar FNF intact bilaterally Gait Deferred Labs: Recent Results (from the past 24 hour(s)) CBC W AUTO DIFFERENTIAL Collection Time: 03/23/19 12:23 PM Result Value Ref Range WBC 12.7 (H) 3.5 - 10.5 10??3/uL RBC 4.92 4.30 - 5.70 10??6/uL Hemoglobin 14.1 13.5 - 17.5 g/dL Hematocrit 42.2 39.0 - 50.0 % MCV 85.8 81.0 - 97.0 fL MCH 28.7 28.0 - 34.0 pg MCHC 33.4 32.0 - 36.0 g/dL Platelet Count 308 150 - 400 10??3/uL RDW-SD 39.8 36.0 - 50.0 fL RDW-CV 12.7 11.2 - 14.8 % MPV 11.1 9.3 - 12.8 fL nRBC Absolute 0.00 0 10??3/uL nRBC Auto 0.0 0 /100 WBC Neutrophils % 74.2 (H) 35.0 - 70.0 % Lymphocytes % 14.6 (L) 19.7 - 55.1 % Monocytes % 9.1 3.0 - 15.0 % Eosinophils % 1.0 0.0 - 6.0 % Basophil % 0.4 0.0 - 1.5 % Neutrophils Absolute 9.4 (H) 1.6 - 7.0 10??3/uL Lymphocyte Absolute 1.9 0.8 - 2.9 10??3/uL Monocytes Absolute 1.16 (H) 0.14 - 0.66 10??3/uL Eosinophils Absolute 0.13 0.00 - 0.45 10??3/uL Basophils Absolute 0.05 0.00 - 0.06 10??3/uL Immature Granulocytes % 0.7 0.0 - 1.0 % COMPREHENSIVE METABOLIC PANEL Collection Time: 03/23/19 12:23 PM Result Value Ref Range BUN 12 7 - 26 mg/dL Creatinine 0.8 0.6 - 1.2 mg/dL Sodium 134 (L) 136 - 145 mmol/L Potassium 4.2 3.5 - 4.5 mmol/L Chloride 100 98 - 107 mmol/L CO2 23 22 - 29 mmol/L Glucose 91 70 - 115 mg/dL Calcium 9.8 8.4 - 10.2 mg/dL Protein Total 7.9 6.0 - 8.3 g/dL Albumin 4.1 3.4 - 5.0 g/dL Bilirubin Total 0.5 0.2 - 1.2 mg/dL Alkaline Phosphatase 82 40 - 150 Units/L ALT 17 0 - 55 Units/L AST 14 5 - 34 Units/L Anion Gap 15 8 - 18 BUN/Creatinine Ratio 15 7 - 23 Osmolality Calculated 277 270 - 300 mOsm/kg Albumin/Globulin Ratio 1.1 1.1 - 2.3 eGFR >60 >60 mL/min/1.73 m2 Neuroimaging: CTH 03/23: No acute intracranial CT abnormality. Assessment: Headache - likely secondary headache. Differential includes mass that did not show on CT head, aneurysm, Idiopathic intracranial hypertension, venous sinus thrombosis, viral meningitis (neck stiffness + leukocytosis). He does not seem ill enough to have bacterial meningitis and he is not immunocompromised. A primary headache disorder does not commonly present at this age, so these secondary causes should be ruled out. Recommendations: - Orthostatic vitals - MRI brain with and without contrast, MRV, MRA brain without contrast - If MRI studies are negative, then LP to rule out idiopathic intracranial hypertension (pseudotumor cerebri) and viral meningitis. - opening pressure - cell count, gram stain + culture, protein, glucose, hold extra tube of CSF Discussed with Attending Physician, Dr. Israel Campbell MD PGY-3, Pediatric Neurology [facility] Associated attestation - Keri Wood MD - 03/24/2019 1:13 PM [facility] Attending note: Pt was seen and evaluated and examined the patient with the neurology resident/medical student. I have verified the documentation of the medical student/ resident including all history/exam, and medical decision-making details. I have personally performed a physical exam and have personally reviewed the data to support my medical decision making as outlined in the medical student/ resident's noteand I arrive independently at the same conclusion. Date of service: 03/24/19 In brief: Patient is a 53 y/o man with one month history of headache that is generalized and associated with light and noise sensitivity with nausea and vomiting. Constant since onset. No previous history of migraine. No recent infection. Headache was 10 at times. No weakness, no vertigo, no numbness, and no visual loss and no previous similar episodes. Several ER visits without help. Brain MRI showed no acute event, and MRA/MRV were essentially unremarkable. CSF was done this morning and it showed elevated wbc with lymph predominantly, and mild elevation of the protein. Cx are pending. Pt reports taking 4-6 NSAIDs over the counter recently, and especially over the past few days for headache. Currently, headache is 2 out of 10. LP completed earlier. OP was 28. No Known Allergies Past Medical History: Diagnosis Date Depressive disorder, not elsewhere classified Generalized anxiety disorder Past Surgical History: Procedure Laterality Date Appendectomy Family History Problem Relation Name Age of Onset Coronary Artery Disease Father Migraine Neg Hx Seizures Neg Hx Brain Tumor Neg Hx Multiple Sclerosis Neg Hx Social History Tobacco Use Smoking status: Never Smoker Substance Use Topics Alcohol use: No Drug use: No No current facility-administered medications on file prior to encounter. Current Outpatient Medications on File Prior to Encounter Medication Sig Dispense Refill ALPRAZolam (XANAX) 0.5 MG tablet Take 0.5-1 mg by mouth 2 times daily as needed for Anxiety amLODIPine (NORVASC) 5 MG tablet Take 1 Tab by mouth once daily (Patient taking differently: Take 10 mg by mouth once daily ) 30 Tab 11 aspirin EC (ECOTRIN) 81 MG tablet Two a day. 0 atorvastatin (LIPITOR) 20 MG tablet Take 20 mg by mouth at bedtime cetirizine (ZYRTEC) 5 MG tablet Take 5 mg by mouth once daily FLUoxetine (PROZAC) 20 MG capsule Take 20 mg by mouth once daily Along with 40 mg for total of 60 mg daily FLUoxetine (PROZAC) 40 MG capsule Take 40 mg by mouth once daily Along with 20 mg for total of 60 mg daily zolpidem (AMBIEN) 10 MG tablet Take 10 mg by mouth nightly as needed for Insomnia 1 hour before bedtime ROS Symptoms within the past 90 days include those in bold type. General: Tiredness, fatigue, fever Skin: rash, abnormal color, cafe- au-lait spots, hair texture, recurrent sores or infections, hives, ulcers, scars. Head: Headache, recent trauma or falls. Ears: Infection, drainage, loss of hearing. Eyes: Changes in vision, pain, double vision, droopy eyelid, infection, drainage. Neck: Soreness, problems swallowing, hoarseness, stiffness, swollen glands, goiter or enlargement of thyroid gland. Respiratory: Cough, chest pain, wheezing,pneumonia, short of breath, erratic breathing pattern at night. Cardiac: Rapid heart beat, shortness of breath, palpitations, irregular heartbeat, fainting spells,increased sweating, ankle swelling. GI: nausea, vomiting, diarrhea, constipation, heartburn, difficulty swallowing, recurrent abdominalpain or cramps, change in consistency or color of stool, blood in stool/bowel movements. : Blood pr pain when urinating, difficulty urinating, bedwetting, frequent urination. MS: Cramps, muscle pain, muscle weakness, neck pain, back pain, joint pain, joint swelling, curvature of back, injury Psych: anxiety, sleep disturbances, depression, nervousness, emotional instability, loss of appetite. Neuro: Headache, dizziness, vertigo, light headedness, blackout spells, seizure, double vision, weakness of arm or leg, loss of coordination or balance, tremors, tingling sensation, numbness in fingers, toes or around lips,memory problems, speech changes, changes in hand writing. Exam BP 159/78 Pulse 64 Temp 97.9 ??F (36.6 ??C) (Oral) Resp 18 Ht 6' 3 (1.905 m) Wt 365 lb (165.6 kg) SpO2 100% BMI 45.62 kg/m2 Physical Exam General - Appears stated age, NAD, afebrile, noncachectic HEENT - NC/AT, PERRL, EOMI, clear conjunctivae, nares patent, throat without erythema or exudate, moist mucous membranes, normal dentition Neck - Supple, no LAD, no JVD, no carotid bruit, no thyromegaly Back - Normal curvature, no scoliosis, no CVA tenderness Chest - CTAB no w/c/r, no use of accessory muscles CV - RRR no murmurs, rubs, or gallops, radial and DP pulses 2/4, good capillary refill Musculoskeletal - Moves all four extremities Ext - No c/c/e Skin - No rashes, lesions, petichiae/ecchymoses, or jaundice Psych - Appropriate mood and affect Neurological exam: Mental status: Alert, awake, responsive, oriented to time and place and person, attentive Language: Fluent, good naming and good repetition, no dysarthria and no aphasia. Cranial nerves: CN II: Pupils are normal reactive to light CN III- through : EOM: full, normal visual ramirez No ptosis, no VF cut CN V: Normal facial sensation and good masseter CN VII: no facial weakness or asymmetry. Normal eyes closure and normal air holding CN VIII: Normal hearing bilaterally. CN IX, X: Normal palate elevation and sensation CNXII: Normal tongue protruding, No tongue weakness or fasciculations or atrophy Motor: Tone: Normal tone, no spasticity or rigidity. Bulk: Normal muscle bulk, no atrophy or hypertrophy. No contractures. Muscle strength is Neck Flexors 5 Neck extensors 5 SA 5 5 (R/L) EF 5 5 (R/L) EE 5 5 (R/L) WE 5 5 (R/L) WF 5 5 (R/L) APB 5 5 (R/L) FDI 5 5 (R/L) FF` 5 5 (R/L) HF 5 5 (R/L) KE 5 5 (R/L) KF 5 5 (R/L) ADF 5 5 (R/L) AI 5 5 (R/L) APF 5 5 (R/L) AE 5 5 (R/L) DTR or Muscle Stretch Reflexes: BR: 2/2 (R/L), TC: 2/2 (R/L), BR 2/2 (R/L) QC 2/2 (R/L), AJ 2/2 (R/L) No Babinski bilaterally Sensory exam: Uexts: normal position, proprioception, and vibration in the hands distally. Normal touch in the hands throughout bilaterally. LExts: normal position, proprioception, and vibration in the toes bilaterally , normal touch and pinprick at the toes and throughout bilaterally. Cerebellar exam: Normal EVARISTO in the hands and normal heel toes in the feet bilaterally, Normal FNF in the hands bilaterally, and normal HTC bilaterally, No tremors noted in the hands and in the face. Gait: deferred. Data Mri Brain Wwo Contrast Result Date: 03/24/2019 IMPRESSION: 1. No evidence of acute cerebral infarction. 2. No large arterial occlusions or significant stenoses identified in the head. 3. No evidence of dural sinus thrombosis. Mri Angio Brain Venous Wwo Cont Result Date: 03/24/2019 IMPRESSION: 1. No evidence of acute cerebral infarction. 2. No large arterial occlusions or significant stenoses identified in the head. 3. No evidence of dural sinus thrombosis. Impression: This is a 53 year old patient with one month history of constant headache with light and noise sensitivity. The DDx includes IIH especially with his body habitus (obese) and high OP of 28. Less likely meningitis, but his CSF results with elevated white count and protein could be related to reactivemeningitis related to using NSAIDs and less likely bacterial/viral meningitis. We discussed the findings with him and his and we will request ID input to further assess for viral meningitis? We will consider diamox 500 mg BID and topamax 50 mg BID for IIH He will follow with ophthalmology as out patient to assess for VA and visual field. Keri Wood M.D Attending documented in this encounter OR Notes * Brief Op Note - Kwaku Bañuelos MD - 03/24/2019 9:09 AM CST Neuroradiology Procedure Note Type of Procedure: Lumbar puncture Indications: Headache, concern for IIH/viral meningitis Procedure Details: Immediately prior to the procedure, universal protocol was performed. The patient was re-identifiedand the procedure confirmed with the patient and all other members of the procedure team. Indications, risks and benefits were explained to the patient and informed consent was obtained. The patient was sterilely prepped and draped. Local anesthesia used: 1 mL of 1% Lidocaine HCl Needle used: 22 gauge 5 inch spinal needle Spinal level accessed: L4-5 CSF appearance: clear Opening pressure: 28 mmHg Contrast used: none Intrathecal medication administered: None Amount of CSF removed: 12 mL in 4 tubes Fluoroscopy time: 12 seconds Immediate complications: none The attending physician, Dr. Olea, was present for the alfaro portions of the procedure. Please see the procedure dictation for full details regarding this procedure and its findings. Kwaku Bañuelos MD Process Safety Engineer 03/24/19 9:10 AM [facility] documented in this encounter ED Notes * Swati Kramer RN - 03/24/2019 8:00 AM CST Patient transported to procedure room [facility] * Chi Valdez MD - 03/24/2019 6:00 AM CST ASSUMED CARE NOTE Patient signed out to me by Dr. Petersen at 6:00 AM. Briefly, Kwaku Kulkarni is a 53 year old male is being evaluated for headache of one month. Neuro following. At this time the patient's condition is Stable. Thus far, studies reveal negative MRI and CT. Plan is admit to Neuro Reassessment: 7:28 AM I re-evaluated the patient's medical condition, comfort, and provided a care update. Patient is sleeping comfortably. Vitals are stable. Provided care update to family at bedside. No other questions or concerns. Patient Vitals for the past 6 hrs: Temp Pulse Resp BP BP Method 03/24/19 0928 97.9 ??F (36.6 ??C) 98 20 152/84 Automatic ED Course: 10:42 AM: Patient at this time has a bed assigned with Neuro service. Patient to be transferred to their inpatient bed. 10:49 AM: Patient underwent successful fluoro LP and per neurology they plan to possibly discharge patient home today pending results. Will hold and not send to inpatient bed. 11:57 AM: Patient taken his inpatient bed for possible viral meningitis on LP as per Neurology recommendations. Clinical Impression: 1. Acute nonintractable headache, unspecified headache type Disposition: Admit to Neuro By signing my name below, I, Franchesca Mccall, attest that this documentation has been prepared under the direction and in the presence of Dr. Valdez. Signed: Mu Najera. Date: 03/24/2019. Time:6:00 AM. I, Dr. Chi Valdez, personally performed the services described in this documentation. All medical record entries made by the scribe were at my direction and in my presence. I have reviewed the chart and agree that the record reflects my personal performance and is accurate and complete. Electronically signed: Dr. Chi Valdez Date: 03/24/2019 Time: 11:58 AM [facility] * Imelda Fuller RN - 03/24/2019 5:44 AM CST Patient resting with eyes closed, even unlabored breathing, VSS, no requests at this time. NAD noted. Will hold medication until PT is awake. [facility] * Imelda Fuller RN - 03/24/2019 5:25 AM CST Pt stating that his back is becoming increasingly painful. Pt states he is unable to rest. [facility] * Imelda Fuller RN - 03/24/2019 3:50 AM CST PT has IV in right writ. Pt stating that IV site is currently throbbing. Pt states that the IV is making it increasingly hard to rest, IV site changed. [facility] * Imelda Fuller RN - 03/24/2019 2:00 AM CST PT stating that his WARD is continuing. MD aware [facility] * Stevie Petersen MD - 03/24/2019 12:07 AM CST ASSUMED CARE NOTE Patient signed out to me by Dr. Hsu at 10:00 AM. Briefly, Kwaku Kulkarni is a 53 year old male is being evaluated for chronic WARD for a month. Pt reports WARD is worse in the evening. Neuro has been consulted. At this time the patient's condition is Fair. Pending MRI result. Plan is likely admit if LP cannot be performed. Discussed with patient LP patient would prefer to have lumbar puncture completed with fluoroscopy Vitals: 03/23/19 1857 03/23/19 2131 03/23/19 2147 03/23/19 2341 BP: 152/77 178/88 (!) 185/92 160/69 Pulse: 76 79 81 83 Resp: 18 Temp: 97.2 ??F (36.2 ??C) SpO2: 98% 100% 100% 100% Weight: Height: ED Course: 11:09 PM: I re-evaluated the patient's medical condition, comfort, and provided a care update. The patient is feeling okay. No other questions or concerns. 11:49 PM: EKG Interpretation: Interpreted by me: Date: 03/24/2019 Time: 11:49 PM R&R: normal rate with a ventricular rate of 49 bpm Additional findings: 4 R wave progression, L axis deviation 12:19 AM: Called neurology. They are okay with transferring pt to [facility]. Clinical Impression: 1. Acute nonintractable headache, unspecified headache type Disposition: Admitted to Neurology, patient signed out to Dr. Valdez at 6:00 a.m. By signing my name below, I, Lamont Baird, attest that this documentation has been prepared under thedirection and in the presence of Dr. Petersen. Signed: Mu Cramer. I, Dr. Petersen, personally performed the services described in this documentation. All medical record entries made by the scribe were at my direction and in my presence. I have reviewed the chart and agree that the record reflects my personal performance and is accurate and complete. [facility] * Imelda Meng RN - 03/23/2019 11:34 PM CST Bed: 35 Expected date: Expected time: Means of arrival: Comments: BEATRIZ Kulkarni [facility] * Parviz Hsu MD - 03/23/2019 2:45 PM CST ASSUMED CARE NOTE Patient signed out to me by Dr. Meng at 2:00 PM. Briefly, Kwaku Kulkarni is a 53 year old morbidly-obese male is being evaluated for WARD. Patient states WARD has been intermittent for 1.5 months. Last , patient went to [facility] for WARD; CT wasnegative, white count was 15,000. Patient saw PCP afterwards, was given medication for WARD but thosedid not help. Patient states he has not slept for 2 nights. Patient also complains of vertigo, which is worse when he closes his eyes. Patient also states his hands shake when he trieis to put in contacts. Patient denies fevers, pain at base of skull, neck stiffness. At this time the patient's condition is Stable per previous team. Thus far, studies reveal negative CT head Plan is wait for neurology recs Reassessment: 3:13 PM - neuro recommends MRI brain with and without contrast, MRV, and MRA. 3:51 PM - I re-evaluated the patient's medical condition, comfort, and provided a care update. The patient is feeling well. Informed him that neurology recommends MRI scans. Patient states that WARD pain is at front of head and at bottom of skull. No other questions or concerns. 8:25 PM - patient taken for MRI. 9:13 PM - informed patient that neurology and radiology are reviewing MRI. Patient signed out to Dr. Petersen at 10:00 PM. At this time the patient's condition is Stable . Pending neurology recommendations Disposition transition to Dr. Petersen Clinical Impression: 1. Acute nonintractable headache, unspecified headache type Disposition: Transition to Dr. Petersen By signing my name below, I, Amrit Robles, attest that this documentation has been prepared under the direction and in the presence of Dr. Hsu. Signed: Mu Foote. I, Dr. Hsu, personally performed the services described in this documentation. All medical record entries made by the scribe were at my direction and in my presence. I have reviewed the chart and agree that the record reflects my personal performance and is accurate and complete. [facility] * Kevin Meng MD - 03/23/2019 12:09 PM CST ED Attending Note Interval History: Kwaku Kulkarni is a 53 year old male presenting to the ED c/o a frontal headache. Pt states he first began experiencing an intermittent headache one month ago. Pt describes the pain as sharp with intermittent shooting pains to the back of his head. Pt reports the pain returned 6 days ago and hasbeen nearly constant since onset, leading to his ED visit. Pt currently rates his pain 6/10 and notes it was a 9/10 at worst. Exacerbating factors sometimes include light and noise. Pt states he doesnot experience headaches as baseline. Associated symptoms include nausea, two episodes of vomiting,and dizziness upon standing up. Pt denies neck pain, fever, or confusion. Notably, pt states he wasevaluated at an outside ED prior to this visit and was suspected to have viral meningitis. Past Medical History: Diagnosis Date ??? Depressive disorder, not elsewhere classified ??? Generalized anxiety disorder Past Surgical History: Procedure Laterality Date ??? Appendectomy Social History Socioeconomic History ??? Marital status: Spouse name: Not on file ??? Number of children: Not on file ??? Years of education: Not on file ??? Highest education level: Not on file Occupational History ??? Not on file Social Needs ??? Financial resource strain: Not on file ??? Food insecurity: Worry: Not on file Inability: Not on file ??? Transportation needs: Medical: Not on file Non-medical: Not on file Tobacco Use ??? Smoking status: Never Smoker Substance and Sexual Activity ??? Alcohol use: No ??? Drug use: No ??? Sexual activity: Not on file Lifestyle ??? Physical activity: Days per week: Not on file Minutes per session: Not on file ??? Stress: Not on file Relationships ??? Social connections: Talks on phone: Not on file Gets together: Not on file Attends anabaptist service: Not on file Active member of club or organization: Not on file Attends meetings of clubs or organizations: Not on file Relationship status: Not on file ??? Intimate partner violence: Fear of current or ex partner: Not on file Emotionally abused: Not on file Physically abused: Not on file Forced sexual activity: Not on file Other Topics Concern ??? Special Diet Not Asked Social History Narrative ??? Not on file Review of Systems: (+) positive All systems negative except as marked. Constitutional: Negative for fever HENT: Negative for sore throat. Eyes: Negative for visual changes Respiratory: Negative for SOB, cough Cardiovascular: Negative for chest pain, palpitations Gastrointestinal: Positive for nausea, vomiting. Negative for abdominal pain, diarrhea Genitourinary: Negative for difficulty urinating, hematuria, dysuria Musculoskeletal: Negative for neck pain, back pain, myalgia Skin: Negative for rash, itching Neurological: Positive for WARD, dizziness. Negative for weakness, numbness, tingling Psychiatric: Negative for SI, hallucinations, anxiety Vitals: 03/23/19 1050 03/23/19 1050 03/23/19 1229 BP: 154/96 154/84 Pulse: 85 74 Resp: 20 14 Temp: 97.3 ??F (36.3 ??C) SpO2: 99% 96% Weight: (!) 165.6 kg (365 lb) Height: 1.905 m (6' 3 ) Exam: Constitutional: well developed, well nourished, no acute distress HENT: normocephalic, atraumatic, moist oral mucosa, conjunctiva normal Eyes: PERRL, EOMi Neck: supple, normal ROM Cardiovascular: regular rate and rhythm, no murmur Respiratory: clear to auscultation bilaterally, no wheezes, no respiratory distress Abdomen: soft, non-tender, non-distended Musculoskeletal: no edema or deformities Skin: warm, dry, no lesions Neurological: awake, alert&Ox4, moving all extremities, no focal motor/sensation deficits. Psychiatric: mood and affect normal Medical Decision Makin. Patient is a 53-year-old male who presents emergency department for evaluation of headache as well as vertigo. This time the patient is well- appearing. He has no focal deficits. He does have some shaking to his hands. Patient also endorses some vertigo with closing his eyes. CT of the head is unr emarkable. Will obtain basic blood work and discuss with Neurology for further evaluation. Neuro evaluating the patient, pending recommendations. Differential diagnosis considered: Complex migraine, vertigo, posterior stroke, pseudotumor cerebri, other Plan: Labs, CT head Results: Labs Reviewed CBC W AUTO DIFFERENTIAL - Abnormal; Notable for the following components: Result Value WBC 12.7 (*) Neutrophils % 74.2 (*) Lymphocytes % 14.6 (*) Neutrophils Absolute 9.4 (*) Monocytes Absolute 1.16 (*) All other components within normal limits COMPREHENSIVE METABOLIC PANEL - Abnormal; Notable for the following components: Sodium 134 (*) All other components within normal limits URINALYSIS W/MICROSCOPIC NO CULTURE CT HEAD WO CONTRAST Final Result EXAM: CT HEAD WO CONTRAST CLINICAL INDICATION: R51: Acute nonintractable headache, unspecified headache type COMPARISON: None. TECHNIQUE: CT of the head was performed without contrast according to standard protocol. Automated dose reduction techniques were employed. FINDINGS: No intracranial hemorrhage or extra-axial fluid collection. Li-white matter differentiation is preserved. No mass effect, or midline shift. Basal cisterns are patent. The ventricles are normal in size, shape, and configuration. The bony calvarium appears intact. Mild mucosal thickening of the paranasal sinuses. IMPRESSION: No acute intracranial CT abnormality. Dictated by Kwaku Bañuelos MD (radiology orderly). I, Dr. JESSI OLEA have personally reviewed and interpreted this examination/study. This report was electronically signed by JESSI OLEA on 03/23/2019 11:44 AM . ED course: The patient's Oxygen Saturation Monitor was interpreted by me. The reading was 100%. The patient was on RA at the time of the reading. This is interpreted as normal. 12:46 PM Resident discussed case with neurology. They agree to see pt. 2:00 PM- signed out to Dr. Hsu, pending neurology recommendations and final disposition Consult Yes -Neurology Procedure done at this time No Ultrasound done at this time No CRITICAL CARE IN THE ED No Orders and Medicine administered during this encounter: Orders Placed This Encounter ??? CT HEAD WO CONTRAST ??? CBC W AUTO DIFFERENTIAL ??? COMPREHENSIVE METABOLIC PANEL ??? URINALYSIS W/MICROSCOPIC NO CULTURE ??? IP CONSULT TO NEUROLOGY ??? 0.9% NaCl IV Bolus ??? ketorolac (TORADOL) injection 30 mg Medications 0.9% NaCl IV Bolus (1,000 mL Intravenous $ New Bag 03/23/19 1226) ketorolac (TORADOL) injection 30 mg (30 mg Intravenous $ Given 03/23/19 1314) Clinical Impression: 1. Acute nonintractable headache, unspecified headache type Disposition: SO to Dr. Hsu By signing my name below, I, Wayne Briceño, attest that this documentation has been prepared under the direction and in the presence of Dr. Meng. Signed: Mu Davis. I, Dr. Meng, personally performed the services described in this documentation. All medical record entries made by the scribe were at my direction and in my presence. I have reviewed the chart and agree that the record reflects my personal performance and is accurate and complete. [facility] * Shannon Littlejohn RN - 03/23/2019 10:59 AM CST Mask placed on patient in triage. [facility] * Sima Velazquez PA-C - 03/23/2019 10:49 AM CST Medical Screening Exam 03/23/2019 10:49 AM I have reviewed the patient's chief complaint, onset of chief complaints, vital signs, level of distress, allergies, current medications, immunization status, as well as completed a focused localizedexam. I have completed a focused limited exam, further evaluation will be necessary in the emergency department to determine if an emergency medical condition exists. This plan has been articulated to the patient/family. Vitals: 03/23/19 1050 Weight: (!) 165.6 kg (365 lb) Height: 1.905 m (6' 3 ) Patient Evaluated: Increasing HAs over the past 1 month. Progressively worsening. Frontal. Like someone is hitting mewith a hammer. Worse at night. Difficulty sleeping. Photophobia and phonophobia. Neck stiffness x 3 days. Occasional chills. Clammy, N/V over the weekend. Lightheadedness for the past 6 days. PEARCE, fatigue, myalgias. Denies URI sxs. Pt was seen at ER in [place] last week for similar sxs. Flu negative. EKG, CT unremarkable. WBC elevated. PCP yesterday rechecked labs, WBC 16. Started on Cefdinir yesterday. HRRR. LCTAB. PERRLA. Oropharynx clear. Radial pulses 2+. VSS. [facility] documented in this encounter Plan of Treatment Not on file documented as of this encounter Procedures Procedure Name Priority Date/Time Associated Diagnosis Comments CARDIAC EKG ORDER 04/14/2019 3:1 1 PM [facility] SYPHILIS ANTIBODY CASCADING REFLEX Routine 03/25/2019 10:30 AM [facility] Aseptic meningitis (HCC) CBC W AUTO DIFFERENTIAL Routine 03/25/2019 3:45 AM [facility] Acute nonintractable headache, unspecified headache type BASIC METABOLIC PANEL (CALCIUM TOTAL) Routine 03/25/2019 3:45 AM [facility] Acute nonintractable headache, unspecified headache type PHOSPHORUS BLOOD Routine 03/25/2019 3:45 AM [facility] Acute nonintractable headache, unspecified headache type MAGNESIUM BLOOD Routine 03/25/2019 3:45 AM [facility] Acute nonintractable headache, unspecified headache type HIV-1 HIV-2 ANTIGEN/ANTIBODY Routine 03/24/2019 5:17 PM [facility] Aseptic meningitis (HCC) FL LUMBAR PUNCTURE STAT 03/24/2019 9: 18 AM [facility] Acute nonintractable headache, unspecified headache type MANUAL DIFFERENTIAL REVIEWED STAT 03/24/2019 8:53 AM [facility] Acute nonintractable headache, unspecified headache type CULTURE CSF+GRAM STAIN STAT 03/24/2019 8:53 AM [facility] Acute nonintractable headache, unspecified headache type DIFFERENTIAL MANUAL FLUID STAT 03/24/2019 8:53 AM [facility] Acute nonintractable headache, unspecified headache type GRAM STAIN (LAB ORDERED) STAT 03/24/2019 8:53 AM [facility] Acute nonintractable headache, unspecified headache type CULTURE CSF+GRAM STAIN STAT 03/24/2019 8:53 AM [facility] Acute nonintractable headache, unspecified headache type CELL COUNT W DIFFERENTIAL CSF STAT 03/24/2019 8:53 AM [facility] Acute nonintractable headache, unspecified headache type PROTEIN CSF STAT 03/24/2019 8:53 AM [facility] Acute nonintractable headache, unspecified headache type GLUCOSE CSF STAT 03/24/2019 8:53 AM [facility] Acute nonintractable headache, unspecified headache type CRYPTOCOCCUS ANTIGEN CSF STAT 03/24/2019 8:50 AM [facility] Aseptic meningitis (HCC) ENTEROVIRUS PCR CSF STAT 03/24/2019 8 :50 AM [facility] Aseptic meningitis (HCC) HERPES SIMPLEX 1+2 PCR CSF STAT 03/24/2019 8:50 AM [facility] Aseptic meningitis (HCC) EKG 12-LEAD Routine 03/23/2019 11:49 PM [facility] Acute nonintractable headache, unspecified headache type BLOOD GASES ALEX STAT 03/23/2019 11:04 PM [facility] MRI ANGIO BRAIN VENOUS WWO CONT STAT 03/23/2019 8:34 PM [facility] Acute nonintractable headache, unspecified headache type MRI BRAIN WWO CONTRAST STAT 03/23/2019 8:33 PM [facility] Acute nonintractable headache, unspecified headache type URINALYSIS W/MICROSCOPIC NO CULTURE STAT 03/23/2019 2:06 PM [facility] CBC W AUTO DIFFERENTIAL STAT 03/23/2019 12:23 PM [facility] COMPREHENSIVE METABOLIC PANEL STAT 03/23/2019 12:[address] [facility] [address] HEAD WO CONTRAST STAT 03/23/2019 1 1:36 AM [facility] Acute nonintractable headache, unspecified headache type documented in this encounter Results * CARDIAC EKG ORDER (04/14/2019 3:11 PM [facility]) Narrative 04/14/2019 3:11 PM [facility] Ordered by an unspecified provider. Scanned Document CARDIAC SERVICES ORD ERABLES * SYPHILIS ANTIBODY CASCADING REFLEX (03/25/2019 10:30 AM [facility]) Treponema pallidum Antibody Non-react lanette Non-react lanette 03/25/2019 12:01 PM [facility] Comment: No Laboratory evidence of syphilis infection. ?? Note: ??Circulating antibodies may be low or undetectable in early infection. ??If recent exposure is suspected, re-draw sample in 2-4 weeks and repeat testing. Blood BLOOD SPECIMEN / Unknown Lab Venipuncture / Unknown 03/25/2019 10:30 AM [facility] 03/25/2019 10:54 AM [facility] Terrell Campbell MD LAB - SEROLOGY MALIA IRVIN [address] [phone] * PHOSPHORUS BLOOD (03/25/2019 3:45 AM [facility]) Phosphorus 3.7 2.3 - 4.7 mg/dL 03/25/2019 4:37 AM [facility] Blood BLOOD SPECIMEN / Unknown Lab Venipuncture / Unknown 03/25/2019 3:45 AM [facility] 03/25/2019 4:08 AM [facility] Terrell Campbell MD LAB - CHEMISTRY ORD TKBLES Performing Organization Address [facility] [place] [address], [facility] [phone] * MAGNESIUM BLOOD (03/25/2019 3:45 AM [facility]) Magnesium 2.4 1.6 - 2.6 mg/dL 03/25/2019 4:37 AM [facility] Blood BLOOD SPECIMEN / Unknown Lab Venipuncture / Unknown 03/25/2019 3:45 AM [facility] 03/25/2019 4:08 AM [facility] Terrell Campbell MD LAB - CHEMISTRY ORD ERABLES Performing Organization Address [facility]/[place] [address], [facility] [phone] * (ABNORMAL) CBC W AUTO DIFFERENTIAL (03/25/2019 3:45 AM [facility]) WBC 13.2(H) 3.5 - 10.5 10? 3 /uL 03/25/2019 4:24 AM [facility] RBC 4.84 4.30 - 5.70 10? 6 /uL 03/25/2019 4:24 AM [facility] Hemoglobin 13.8 13.5 - 17.5 g/dL 03/25/2019 4:24 AM [facility] Hematocrit 41.8 39.0 - 50.0 % 03/25/2019 4:24 AM [facility] MCV 86.4 81.0 - 97.0 fL 03/25/2019 4:24 AM [facility] MCH 28.5 28.0 - 34.0 pg 03/25/2019 4:24 AM [facility] MCHC 33.0 32.0 - 36.0 g/dL 03/25/2019 4:24 AM [facility] Platelet Count 289 150 - 400 10? 3 /uL 03/25/2019 4:24 AM [facility] RDW-SD 39.8 36.0 - 50.0 fL 03/25/2019 4:24 AM [facility] RDW-CV 12.6 11.2 - 14.8 % 03/25/2019 4:24 AM [facility] MPV 11.5 9.3 - 12.8 fL 03/25/2019 4:24 AM [facility] nRBC Absolute 0.00 0 10? 3 /uL 03/25/2019 4:24 AM [facility] nRBC Auto 0.0 0 /100 WBC 03/25/2019 4:24 AM [facility] Neutrophils % 77.4(H) 35.0 - 70.0 % 03/25/2019 4:24 AM [facility] Lymphocytes % 10.9(L) 19.7 - 55.1 % 03/25/2019 4:24 AM [facility] Monocytes % 9.7 3.0 - 15.0 % 03/25/2019 4:24 AM [facility] Eosinophils % 0.8 0.0 - 6.0 % 03/25/2019 4:24 AM [facility] Basophil % 0.5 0.0 - 1.5 % 03/25/2019 4:24 AM [facility] Neutrophils Absolute 10.2(H) 1.6 - 7.0 10? 3 /uL 03/25/2019 4:24 AM [facility] Lymphocyte Absolute 1.4 0.8 - 2.9 10? 3 /uL 03/25/2019 4:24 AM [facility] Monocytes Absolute 1.28(H) 0.14 - 0.66 10? 3 /uL 03/25/2019 4:24 AM [facility] Eosinophils Absolute 0.10 0.00 - 0.45 10? 3 /uL 03/25/2019 4:24 AM [facility] Basophils Absolute 0.07(H) 0.00 - 0.06 10? 3 /uL 03/25/2019 4:24 AM [facility] Immature Granulocytes % 0.7 0.0 - 1.0 % 03/25/2019 4:24 AM [facility] Blood BLOOD SPECIMEN / Unknown Lab Venipuncture / Unknown 03/25/2019 3:45 AM [facility] 03/25/2019 4:08 AM [facility] Terrell Campbell MD LAB - HEMATOLOGY OR DERABLES [address] [phone] * (ABNORMAL) BASIC METABOLIC PANEL (CALCIUM TOTAL) (03/25/2019 3:45 AM [facility]) BUN 10 7 - 26 mg/dL 03/25/2019 4:37 AM [facility] Creatinine 0.8 0.6 - 1.2 mg/dL 03/25/2019 4:37 AM [facility] Sodium 132(L) 136 - 145 mmol/L 03/25/2019 4:37 AM [facility] Potassium 3.4(L) 3.5 - 4.5 mmol/L 03/25/2019 4:37 AM [facility] Chloride 102 98 - 107 mmol/L 03/25/2019 4:37 AM [facility] CO2 21(L) 22 - 29 mmol/L 03/25/2019 4:37 AM [facility] Glucose 101 70 - 115 mg/dL 03/25/2019 4:37 AM [facility] Calcium 9.6 8.4 - 10.2 mg/dL 03/25/2019 4:37 AM [facility] Anion Gap 12 8 - 18 03/25/2019 4:37 AM [facility] BUN/Creatinine Ratio 13 7 - 23 03/25/2019 4:37 AM [facility] Osmolality Calculated 273 270 - 300 mOsm/kg 03/25/2019 4:37 AM [facility] eGFR >60 >60 mL/min/1.7 3 m2 03/25/2019 4:37 AM [facility] Blood BLOOD SPECIMEN / Unknown Lab Venipuncture / Unknown 03/25/2019 3:45 AM [facility] 03/25/2019 4:08 AM [facility] Terrell Campbell MD LAB - CHEMISTRY ORD ERABLES Performing Organization Address [facility] Co de Phone Number [address] [phone] * HIV-1 HIV-2 ANTIGEN/ANTIBODY (03/24/2019 5:17 PM [facility]) HIV Antigen/Antibod y 1 & 2 Non-reacti ve Non-react lanette 03/24/2019 6:06 PM [facility] Comment: Neither HIV-1 p24 Antigen nor HIV-1/HIV-2 Antibodies are detected. ? Blood BLOOD SPECIMEN / Unknown Lab Venipuncture / Unknown 03/24/2019 5:17 PM [facility] 03/24/2019 5:27 PM [facility] Terrell Campbell MD LAB - HEMATOLOGY OR DERABLES Performing Organization Address [facility] Co de Phone Number [address] [phone] * FL LUMBAR PUNCTURE (03/24/2019 9:18 AM [facility]) Anatomical Region Laterality Modality Spine Radiographic Trang ging 03/24/2019 9:18 AM [facility] Impressions 03/24/2019 10:18 AM [facility] IMPRESSION: 1. Successful lumbar puncture under fluoroscopic guidance at L4-5. Dictated by Kwaku Bañuelos MD (radiology orderly). This report was approved ??by Kwaku Bañuelos ?? on 03/24/2019 9:[address] JESSI Chavez have personally reviewed and interpreted this examination/study. This report was electronically signed by JESSI OLEA ??on 03/24/2019 10:18 AM . Narrative 03/24/2019 10:18 AM [facility] EXAMINATION: Diagnostic lumbar puncture (LP) under fluoroscopic guidance HISTORY: R51: Acute nonintractable headache, unspecified headache type TECHNIQUE: ??The risks and benefits of the lumbar puncture including, but not limited to, infection, bleeding, seizure, epidural hematoma, post spinal headache, cerebrospinal fluid (CSF) leak requiring blood patch procedure, nausea, vomiting, irritation or damage to nerves causing pain or permanent injury were discussed with the patient. After alternatives were discussed and the opportunity to ask questions was provided, the patient acknowledged understanding, gave verbal and written consent, and wished to proceed. Attending physician: Dr. Olea was present for the alfaro portions of this procedure. The L4-5 level was localized with fluoroscopy. The skin overlying this level was then sterilely prepped, draped, and infiltrated with 1 ml 1% lidocaine without epinephrine for local anesthesia. Under intermittent fluoroscopic guidance, a 22 gauge 5 inch needle was inserted into the thecal sac at this level. Clear CSF was identified. A total of 12 ml of CSF was removed and placed into 4 specimen tubes. The patient tolerated the procedure well. The patient was then transferred to the emergency department bed for further observation and at least 2 hours of bedrest. OPENING PRESSURE: 28cm H2O measured in the prone position at the level of the heart FLUOROSCOPY TIME: 12 seconds Procedure Note Jessi lOea MD - 03/24/2019 EXAMINATION: Diagnostic lumbar puncture (LP) under fluoroscopic guidance HISTORY: R51: Acute nonintractable headache, unspecified headache type TECHNIQUE: The risks and benefits of the lumbar puncture including, but not limited to, infection, bleeding, seizure, epidural hematoma, post spinal headache, cerebrospinal fluid (CSF) leak requiring blood patch procedure, nausea, vomiting, irritation or damage to nerves causing pain or permanent injury were discussed with the patient. After alternatives were discussed and the opportunity to ask questions was provided, the patient acknowledged understanding, gave verbal and written consent, and wished to proceed. Attending physician: Dr. Olea was present for the alfaro portions of this procedure. The L4-5 level was localized with fluoroscopy. The skin overlying this level was then sterilely prepped, draped, and infiltrated with 1 ml 1% lidocaine without epinephrine for local anesthesia. Under intermittent fluoroscopic guidance, a 22 gauge 5 inch needle was inserted into the thecal sac at this level. Clear CSF was identified. A total of 12 ml of CSF was removed and placed into 4 specimen tubes. The patient tolerated the procedure well. The patient was then transferred to the emergency department bed for further observation and at least 2 hours of bedrest. OPENING PRESSURE: 28cm H2O measured in the prone position at the levelof the heart FLUOROSCOPY TIME: 12 seconds IMPRESSION: 1. Successful lumbar puncture under fluoroscopic guidance at L4-5. Dictated by Kwaku Bañuelos MD (radiology orderly). This report was approved by Kwaku Bañuelos on 03/24/2019 9:19 AM . I, Dr. JESSI OLEA have personally reviewed and interpreted this examination/study. This report was electronically signed by JESSI OLEA on 03/24/2019 10:18 AM . Terrell Campbell MD FLUOROSCOPY ORDERAB LES * MANUAL DIFFERENTIAL REVIEWED (03/24/2019 8:53 AM [facility]) Manual Differential Reviewed DIFFERENTIAL REVIEW - CONFIRMED DIFFERENTIAL REVIEW - CONFIRMED 03/24/2019 3:30 PM [facility] Cerebral spinal fluid CEREBROSPINAL FLUID SPECIMEN / Unknown Collection / Unknown 03/24/2019 8:53 AM [facility] 03/24/2019 9:38 AM [facility] Terrell Campbell MD LAB - HEMATOLOGY OR DERABLES [address] [phone] * DIFFERENTIAL MANUAL FLUID (03/24/2019 8:53 AM [facility]) Lymphocytes % Fluid 83 % 03/24/2019 10:26 AM [facility] Monocytes % Fluid 17 % 03/24/2019 10:26 AM [facility] Cerebral spinal fluid CEREBROSPINAL FLUID SPECIMEN / Unknown Collection / Unknown 03/24/2019 8:53 AM [facility] 03/24/2019 9:38 AM [facility] Terrell Campbell MD LAB - BODY FLUID OR DERABLES Performing Organization Address [facility] [place] [address], [facility] [phone] * GRAM STAIN (LAB ORDERED) (03/24/2019 8:53 AM [facility]) Gram Stain Rare Polymorphonuclear cells 03/24/2019 2:07 PM [facility] Gram Stain No organisms seen 020 2:07 PM [facility] Microbiology CEREBROSPINAL FLUID SPECIMEN / Unknown Collection / Unknown 03/24/2019 8:53 AM [facility] 03/24/2019 9:37 AM [facility] Terrell Campbell MD LAB - MICROBIOLOGY ORDERABLES Performing Organization Address [facility] [place] [address], [facility] [phone] * CULTURE CSF+GRAM STAIN (03/24/2019 8:53 AM [facility]) Culture No growth LIAN 03/31/2019 6:06 AM [facility] MICROBIOLOGY Gram Stain Light Polymorphonuclear cells 03/31/2019 6:06 AM [facility] MICROBIOLOGY Gram Stain No organisms seen 020 6:06 AM [facility] MICROBIOLOGY Cerebral spinal fluid CEREBROSPINAL FLUID SPECIMEN / Unknown Collection / Unknown 03/24/2019 8:53 AM [facility] 03/24/2019 9:37 AM [facility] Terrell Campbell MD LAB - MICROBIOLOGY ORDERABLES Performing Organization Address City/[facility]/ZIP Co de Phone Number [facility] MICROBIOLOGY [address] [place] [address], [facility] [phone] * (ABNORMAL) CELL COUNT W DIFFERENTIAL CSF (03/24/2019 8:53 AM [facility]) Color Fluid Colorless Colorless, Straw 03/24/2019 9:59 AM [facility] Clarity Fluid Clear Clear 03/24/2019 9:59 AM [facility] Volume Fluid 1.5 mL 03/24/2019 9:59 AM [facility] WBC Calculation Fluid 178(H) 0 - 5 /uL 03/24/2019 9:59 AM [facility] RBC Calculation 1,030 /uL 0 9:59 AM [facility] Xanthochromia Fluid Negative Negative 03/24/2019 9:59 AM [facility] Differential Manual Differential to follow. 03/24/2019 9:59 AM [facility] Cerebral spinal fluid CEREBROSPINAL FLUID SPECIMEN / Unknown Collection / Unknown 03/24/2019 8:53 AM [facility] 03/24/2019 9:38 AM [facility] - 03/24/2019 9:59 AM [facility] No reference ranges established for body fluid cell counts. The reference ranges provided are derived from published literature. The test results must be integrated into the clinical context for interpretation. Terrell Campbell MD LAB - BODY FLUID OR DERABLES [address] [phone] * (ABNORMAL) PROTEIN CSF (03/24/2019 8:53 AM [facility]) Protein CSF 69(H) 15 - 45 mg/dL 03/24/2019 9:55 AM [facility] Cerebral spinal fluid CEREBROSPINAL FLUID SPECIMEN / Unknown Collection / Unknown 03/24/2019 8:53 AM [facility] 03/24/2019 9:38 AM [facility] Terrell Campbell MD LAB - BODY FLUID OR DERABLES [address] [phone] * GLUCOSE CSF (03/24/2019 8:53 AM [facility]) Glucose CSF 54 40 - 70 mg/dL 03/24/2019 9:55 AM [facility] Cerebral spinal fluid CEREBROSPINAL FLUID SPECIMEN / Unknown Collection / Unknown 03/24/2019 8:53 AM [facility] 03/24/2019 9:38 AM [facility] Terrell Campbell MD LAB - BODY FLUID OR DERABLES [address] [address], [facility] [phone] * CRYPTOCOCCUS ANTIGEN CSF (03/24/2019 8:50 AM [facility]) Cryptococcus Antigen CSF Negative Negative 03/24/2019 6:45 PM [facility] [facility] MICROBIOLOGY Cerebral spinal fluid CEREBROSPINAL FLUID SPECIMEN / Unknown Collection / Unknown 03/24/2019 8:50 AM [facility] [employer] 03/24/2019 4:45 PM [facility] [employer] Terrell Campbell MD LAB - MICROBIOLOGY ORDERABLES Performing Organization Address City/[facility]/ZIP Co de Phone Number [facility] MICROBIOLOGY [address] [place] [address], [facility] [phone] * HERPES SIMPLEX 1+2 PCR CSF (03/24/2019 8:50 AM [facility] [employer]) Herpes Simplex Virus 1 PCR CSF Not detected Not detected 03/24/2019 9:11 PM [employer] [facility] MICROBIOLOGY Herpes Simplex Virus 2 PCR CSF Not detected Not detected 03/24/2019 9:11 PM [employer] [facility] MICROBIOLOGY Microbiology CEREBROSPINAL FLUID SPECIMEN / Unknown Collection / Unknown 03/24/2019 8:50 AM [facility] [employer] 03/24/2019 4:45 PM [employer] Terrell Campbell MD LAB - MICROBIOLOGY ORDERABLES [facility] MICROBIOLOGY [address] [place] [address], [facility] [phone] * ENTEROVIRUS PCR CSF (03/24/2019 8:50 AM [facility] [employer]) Enterovirus by PCR Not detected Not detected, Indeterminate 03/24/2019 9:10 PM [employer] [facility] MICROBIOLOGY Cerebral spinal fluid CEREBROSPINAL FLUID SPECIMEN / Unknown Collection / Unknown 03/24/2019 8:50 AM [facility] [employer] 03/24/2019 4:45 PM [employer] Narrative [facility] MICROBIOLOGY - 03/24/2019 9:10 PM [employer] Not Detected results do not rule out enterovirus as a cause of infection, and must be evaluated in clinical context. This test cannot rule out other causes of meningitis, including bacteria, mycobacteria, other viruses (e.g. herpes family viruses, arboviruses, mumps virus, etc) and fungi. Terrell Campbell MD LAB - MICROBIOLOGY ORDERABLES Performing Organization Address [facility]/ZIP Co de Phone Number [facility] MICROBIOLOGY [address] [place] [address], [facility] [phone] * EKG 12-LEAD (03/23/2019 11:49 PM [employer]) Pathologist [facility] Ventricular Rate 79 BPM [facility] Atrial Rate 79 BPM [facility] P-R Interval 204 ms [facility] QRS Duration ms 92 ms [facility] Q-T Interval ms 378 ms [facility] QTC Calculation (Bezet) 433 ms [facility] Calculated P [place] 51 degrees [facility] Calculated R [place] -25 degrees [facility] Calculated T [place] 51 degrees [facility] Interpretation EKG NORMAL SINUS RHYTHM ABNORMAL ECG WHEN COMPARED WITH ECG OF 17-JAN-2015 09:35, NO SIGNIFICANT CHANGE WAS FOUND Confirmed by Ilan Moran ([id number]), news videotape editor Alexander Puga ([id number]) on 03/30/2019 10:52:27 PM [facility] 03/23/2019 11:4 9 PM [facility] [employer] 03/30/2019 10:52 PM [employer] Mukul Milan MD ECG ORDERABLES Performing Organization Address [facility] Co de Phone Number [facility] M[facility] * (ABNORMAL) BLOOD GASES ALEX (03/23/2019 11:04 PM [facility]) Pathologist [facility] pH Mixed Venous 7.43(H) 7.30 - 7.40 03/23/2019 11:12 PM [facility] [facility] pCO2 Mixed Venous 37(L) 40 - 46 mmHg 03/23/2019 11:12 PM [facility] [facility] pO2 Mixed Venous 51(H) 35 - 42 mmHg 03/23/2019 11:[address] [facility] HCO3 Mixed Venous 23.9 22.0 - 26.0 mmol/L 03/23/2019 11:[address] [facility] TCO2 Mixed Venous 25.0 25.0 - 29.0 mmol/L 03/23/2019 11:12 [address] [facility] Base Excess Venous 0.0 -2.0 - 2.0 mmol/L 03/23/2019 11:12 PM [facility] Hemoglobin Mixed Venous 14.2 13.5 - 17.5 g/dL 03/23/2019 11:12 PM [facility] Oxyhemoglobin Mixed Venous 86.8(H) 66.0 - 77.0 % 03/23/2019 11:12 PM [facility] Carboxyhemoglobin Venous 0.3 0.0 - 3.0 % 03/23/2019 11:12 PM [facility] Methemoglobin 0.2 0.0 - 2.0 % 03/23/2019 11:12 PM [facility] FI O2 Mixed Venous 21.0 % 2019 11:12 PM [facility] Blood BLOOD SPECIMEN / Unknown Venipuncture / Unknown 03/23/2019 11:04 PM [facility] [employer] 03/23/2019 11:09 PM [employer] Mukul Milan MD LAB - BLOOD GASES OR DERABLES Performing Organization Address [facility]/State/[facility] Co de Phone Number [facility] [address] [place] [address] * MRI ANGIO BRAIN VENOUS WWO CONT (03/23/2019 8:34 PM [employer]) Anatomical Region Laterality Modality Head Magnetic Resonan ce 03/24/2019 7:13 AM [employer] Impressions 03/24/2019 12:10 PM [employer] IMPRESSION: 1. No evidence of acute cerebral infarction. 2. No large arterial occlusions or significant stenoses identified in the head. 3. No evidence of dural sinus thrombosis. I, Dr. ABRAHAM SANDERS have personally reviewed and interpreted this examination/study. This report was electronically signed by ABRAHAM SANDERS ??on 03/24/2019 12:10 PM . Narrative 03/24/2019 12:10 PM [facility] [employer] EXAMINATION: 1. Magnetic resonance imaging (MRI) of the brain without and with contrast 2. Magnetic resonance angiography (MRA) and venography (MRV) of the head without and with contrast HISTORY: R51: Acute nonintractable headache, unspecified headache type TECHNIQUE: MRI of the brain was performed prior to and following the uneventful administration of 10 mL Gadavist intravenous gadolinium contrast according to a tumor protocol. MR arteriography of the head was performed without contrast utilizing time of flight technique. MRV of the head was performed utilizing contrast enhanced time-resolved technique after the uneventful administration of 10 mL Gadavist intravenous gadolinium contrast. COMPARISON: Head CT from 03/23/2019 BRAIN: No evidence of acute or chronic hemorrhage is identified. No evidence of acute cerebral infarction or encephalomalacia is seen. The brain volume is normal. The ventricles are of normal size, shape, and morphology. No mass, edema, mass effect or midline shift is seen. A nonspecific thin periventricular halo of white matter FLAIR hyperintensities is clinically insignificant. No enhancing lesions are identified. The corpus callosum and sella appear normal. The posterior fossa, brainstem, and craniocervical junction appear normal. Other than mild pansinus mucosal thickening without fluid collections, the paranasal sinuses, middle ear cavities and mastoid air cells are clear. The orbital contents are normal and symmetric. Normal flow voids are demonstrated in the carotid arteries and basilar artery. The calvarium and visualized cervical spine appear normal. The right cavernous sinus appears asymmetrically enlarged (series 113, image 67), which could be to tortuosity of the cavernous segment of the right internal carotid artery; but, without nonenhancing foci to suggest clots. The right superior ophthalmic vein is not asymmetrically enlarged. ANGIOGRAPHIC FINDINGS: The distal internal carotid arteries appear normal. The anterior and middle cerebral arteries appear normal. The distal vertebral arteries appear normal. The basilar artery, vertebrobasilar branches and posterior cerebral arteries appear normal. No aneurysms, vascular occlusions, or intracranial stenoses are identified. VENOGRAPHIC FINDINGS: The dural sinuses appear normal without evidence of thrombosis. The internal cerebral veins, vein of Gallen and visible portions of the internal jugular veins appear normal without evidence of thrombosis. Asymmetry of the size of transverse sinuses with the right one larger than the left one, is developmental. Procedure Note Abraham Sanders MD - 03/24/2019 EXAMINATION: 1. Magnetic resonance imaging (MRI) of the brain without and withcontrast 2. Magnetic resonance angiography (MRA) and venography (MRV) of the head without and with contrast HISTORY: R51: Acute nonintractable headache, unspecified headache type TECHNIQUE: MRI of the brain was performed prior to and following the uneventful administration of 10 mL Gadavist intravenous gadolinium contrast according to a tumor protocol. MR arteriography of the head was performed without contrast utilizing time of flight technique. MRV ofthe head was performed utilizing contrast enhanced time-resolved technique after the uneventful administration of 10 mL Gadavist intravenous gadolinium contrast. COMPARISON: Head CT from 03/23/2019 BRAIN: No evidence of acute or chronic hemorrhage is identified. No evidence of acute cerebral infarction or encephalomalacia is seen. The brain volumeis normal. The ventricles are of normal size, shape, and morphology. [place], edema, mass effect or midline shift is seen. A nonspecific thin periventricular halo of white matter FLAIR hyperintensities isclinically insignificant. No enhancing lesions are identified. The corpus callosum and sella appear normal. The posterior fossa, brainstem, and craniocervical junction appear normal. Other than mild pansinus mucosal thickening without fluid collections,the paranasal sinuses, middle ear cavities and mastoid air cells are clear. The orbital contents are normal and symmetric. Normal flow voids are demonstrated in the carotid arteries and basilar artery. The calvariumand visualized cervical spine appear normal. The right cavernous sinus appears asymmetrically enlarged (series 113, image 67), which could be to tortuosity of the cavernous segment of the right internal carotid artery; but, without nonenhancing foci to suggest clots. The right superior ophthalmic vein is not asymmetricallyenlarged. ANGIOGRAPHIC FINDINGS: The distal internal carotid arteries appear normal. The anterior and middle cerebral arteries appear normal. The distal vertebral arteries appear normal. The basilar artery, vertebrobasilar branches andposterior cerebral arteries appear normal. No aneurysms, vascular occlusions, or intracranial stenoses are identified. VENOGRAPHIC FINDINGS: The dural sinuses appear normal without evidence of thrombosis. The internal cerebral veins, vein of Gall[place] and visible portions of the internal jugular veins appear normal without evidence of thrombosis. Asymmetry of the size of transverse sinuses with the right one largerthan the left one, is developmental. IMPRESSION: 1. No evidence of acute cerebral infarction. 2. No large arterial occlusions or significant stenoses identified inthe head. 3. No evidence of dural sinus thrombosis. Dr. ABRAHAM Chavez have personally reviewed and interpreted this examination/study. This report was electronically signed by ABRAHAM SANDERS on 03/24/2019 12:10 PM . Terrell Campbell MD MR ORDERABLES * MRI BRAIN WWO CONTRAST (03/23/2019 8:33 PM [employer]) Anatomical Region Laterality Modality Head Magnetic Resonan ce 03/24/2019 7:13 AM [employer] Impressions 03/24/2019 12:10 PM [employer] IMPRESSION: 1. No evidence of acute cerebral infarction. 2. No large arterial occlusions or significant stenoses identified in the head. 3. No evidence of dural sinus thrombosis. Dr. ABRAHAM Chavez have personally reviewed and interpreted this examination/study. This report was electronically signed by ABRAHAM SANDERS ??on 03/24/2019 12:10 PM . Narrative 03/24/2019 12:10 PM [employer] EXAMINATION: 1. Magnetic resonance imaging (MRI) of the brain without and with contrast 2. Magnetic resonance angiography (MRA) and venography (MRV) of the head without and with contrast HISTORY: R51: Acute nonintractable headache, unspecified headache type TECHNIQUE: MRI of the brain was performed prior to and following the uneventful administration of 10 mL Gadavist intravenous gadolinium contrast according to a tumor protocol. MR arteriography of the head was performed without contrast utilizing time of flight technique. MRV of the head was performed utilizing contrast enhanced time-resolved technique after the uneventful administration of 10 mL Gadavist intravenous gadolinium contrast. COMPARISON: Head CT from 03/23/2019 BRAIN: No evidence of acute or chronic hemorrhage is identified. No evidence of acute cerebral infarction or encephalomalacia is seen. The brain volume is normal. The ventricles are of normal size, shape, and morphology. No mass, edema, mass effect or midline shift is seen. A nonspecific thin periventricular halo of white matter FLAIR hyperintensities is clinically insignificant. No enhancing lesions are identified. The corpus callosum and sella appear normal. The posterior fossa, brainstem, and craniocervical junction appear normal. Other than mild pansinus mucosal thickening without fluid collections, the paranasal sinuses, middle ear cavities and mastoid air cells are clear. The orbital contents are normal and symmetric. Normal flow voids are demonstrated in the carotid arteries and basilar artery. The calvarium and visualized cervical spine appear normal. The right cavernous sinus appears asymmetrically enlarged (series 113, image 67), which could be to tortuosity of the cavernous segment of the right internal carotid artery; but, without nonenhancing foci to suggest clots. The right superior ophthalmic vein is not asymmetrically enlarged. ANGIOGRAPHIC FINDINGS: The distal internal carotid arteries appear normal. The anterior and middle cerebral arteries appear normal. The distal vertebral arteries appear normal. The basilar artery, vertebrobasilar branches and posterior cerebral arteries appear normal. No aneurysms, vascular occlusions, or intracranial stenoses are identified. VENOGRAPHIC FINDINGS: The dural sinuses appear normal without evidence of thrombosis. The internal cerebral veins, vein of [place] and visible portions of the internal jugular veins appear normal without evidence of thrombosis. Asymmetry of the size of transverse sinuses with the right one larger than the left one, is developmental. Procedure Note Abraham Sanders MD - 03/24/2019 EXAMINATION: 1. Magnetic resonance imaging (MRI) of the brain without and withcontrast 2. Magnetic resonance angiography (MRA) and venography (MRV) of the head without and with contrast HISTORY: R51: Acute nonintractable headache, unspecified headache type TECHNIQUE: MRI of the brain was performed prior to and following the uneventful administration of 10 mL Gadavist intravenous gadolinium contrast according to a tumor protocol. MR arteriography of the head was performed without contrast utilizing time of flight technique. MRV ofthe head was performed utilizing contrast enhanced time-resolved technique after the uneventful administration of 10 mL Gadavist intravenous gadolinium contrast. COMPARISON: Head CT from 03/23/2019 BRAIN: No evidence of acute or chronic hemorrhage is identified. No evidence of acute cerebral infarction or encephalomalacia is seen. The brain volumeis normal. The ventricles are of normal size, shape, and morphology. [place], edema, mass effect or midline shift is seen. A nonspecific thin periventricular halo of white matter FLAIR hyperintensities isclinically insignificant. No enhancing lesions are identified. The corpus callosum and sella appear normal. The posterior fossa, brainstem, and craniocervical junction appear normal. Other than mild pansinus mucosal thickening without fluid collections,the paranasal sinuses, middle ear cavities and mastoid air cells are clear. The orbital contents are normal and symmetric. Normal flow voids are demonstrated in the carotid arteries and basilar artery. The calvariumand visualized cervical spine appear normal. The right cavernous sinus appears asymmetrically enlarged (series 113, image 67), which could be to tortuosity of the cavernous segment of the right internal carotid artery; but, without nonenhancing foci to suggest clots. The right superior ophthalmic vein is not asymmetricallyenlarged. ANGIOGRAPHIC FINDINGS: The distal internal carotid arteries appear normal. The anterior and middle cerebral arteries appear normal. The distal vertebral arteries appear normal. The basilar artery, vertebrobasilar branches andposterior cerebral arteries appear normal. No aneurysms, vascular occlusions, or intracranial stenoses are identified. VENOGRAPHIC FINDINGS: The dural sinuses appear normal without evidence of thrombosis. The internal cerebral veins, vein of Gall[place] and visible portions of the internal jugular veins appear normal without evidence of thrombosis. Asymmetry of the size of transverse sinuses with the right one largerthan the left one, is developmental. IMPRESSION: 1. No evidence of acute cerebral infarction. 2. No large arterial occlusions or significant stenoses identified inthe head. 3. No evidence of dural sinus thrombosis. I, Dr. ABRAHAM SANDERS have personally reviewed and interpreted this examination/study. This report was electronically signed by ABRAHAM SANDERS on 03/24/2019 12:10 PM . Dagoberto Lu DO ORDERABLES * URINALYSIS W/MICROSCOPIC NO CULTURE (03/23/2019 2:06 PM [employer]) Color UA Yellow Straw, Yellow, Colorless 03/23/2019 2:20 PM [facility] [facility] Clarity UA Slt Cloudy Clear, Slt Cloudy 03/23/2019 2:20 PM [facility] [employer] [facility] Specific [place] UA 1.005 1.005 - 1.030 03/23/2019 2:20 PM [employer] [facility] pH UA 6.0 5.0 - 8.0 pH 03/23/2019 2:20 PM [employer] [facility] Protein UA Negative Negative mg/dL 03/23/2019 2:20 PM [employer] [facility] Glucose UA Negative Negative mg/dL 03/23/2019 2:[address] [facility] Ketone UA Negative Negative mg/dL 03/23/2019 2:20 PM [facility] Bilirubin UA Negative Negative mg/dL 03/23/2019 2:20 PM [facility] Blood UA Negative Negative 03/23/2019 2:20 PM [facility] Nitrite UA Negative Negative 03/23/2019 2:20 PM [facility] Leukocyte Esterase Negative Negative 03/23/2019 2:20 PM [facility] Urobilinogen UA Negative Negative mg/dL 03/23/2019 2:20 PM [facility] RBC UA 0-2 None Seen, 0-2, 3-5 /HPF 03/23/2019 2:20 PM [facility] WBC UA 0-5 None Seen, 0-5 /HPF 03/23/2019 2:20 PM [facility] Bacteria UA Trace None, Trace /HPF 03/23/2019 2:20 PM [facility] Squamous Epithelial Cells UA 0-2 None Seen, 0-2 /HPF 03/23/2019 2:20 PM [facility] Urine URINE SPECIMEN OBTAINED BY CLEAN CATCH PROCEDURE / Unknown Collection / Unknown 03/23/2019 2:06 PM [facility] 03/23/2019 2:09 PM [facility] - 03/23/2019 2:20 PM [facility] Sima Velazquez PA-C LAB - URINAL YSIS ORDERABLES Performing Organization Address City/State/[facility] Co de Phone Number [address] [phone] * (ABNORMAL) COMPREHENSIVE METABOLIC PANEL (03/23/2019 12:23 PM [facility]) BUN 12 7 - 26 mg/dL 03/23/2019 12:44 PM [facility] Creatinine 0.8 0.6 - 1.2 mg/dL 03/23/2019 12:44 PM [facility] Sodium 134(L) 136 - 145 mmol/L 03/23/2019 12:44 PM [facility] Potassium 4.2 3.5 - 4.5 mmol/L 03/23/2019 12:44 PM [facility] Chloride 100 98 - 107 mmol/L 03/23/2019 12:[address] [facility] CO2 23 22 - 29 mmol/L 03/23/2019 12:44 PM [facility] Glucose 91 70 - 115 mg/dL 03/23/2019 12:44 PM [facility] Calcium 9.8 8.4 - 10.2 mg/dL 03/23/2019 12:44 PM [facility] Protein Total 7.9 6.0 - 8.3 g/dL 03/23/2019 12:44 PM [facility] Albumin 4.1 3.4 - 5.0 g/dL 03/23/2019 12:44 PM [facility] Bilirubin Total 0.5 0.2 - 1.2 mg/dL 03/23/2019 12:44 PM [facility] Alkaline Phosphatase 82 40 - 150 Units/L 03/23/2019 12:44 PM [facility] ALT 17 0 - 55 Units/L 03/23/2019 12:44 PM [facility] AST 14 5 - 34 Units/L 03/23/2019 12:44 PM [facility] Anion Gap 15 8 - 18 03/23/2019 12:44 PM [facility] BUN/Creatinine Ratio 15 7 - 23 03/23/2019 12:44 PM [facility] Osmolality Calculated 277 270 - 300 mOsm/kg 03/23/2019 12:44 PM [facility] Albumin/Globulin Ratio 1.1 1.1 - 2.3 03/23/2019 12:44 PM [facility] eGFR >60 >60 mL/min/1.7 3 m2 03/23/2019 12:44 PM [facility] Blood BLOOD SPECIMEN / Unknown Venipuncture / Unknown 03/23/2019 12:23 PM [facility] 03/23/2019 12:26 PM [facility] Sima Velazquez PA-C LAB - CHEMIS TRY ORDERABLES [address] [phone] * (ABNORMAL) CBC W AUTO DIFFERENTIAL (03/23/2019 12:23 PM [facility]) WBC 12.7(H) 3.5 - 10.5 10? 3 /uL 03/23/2019 12:32 PM [facility] RBC 4.92 4.30 - 5.70 10? 6 /uL 03/23/2019 12:32 PM [facility] Hemoglobin 14.1 13.5 - 17.5 g/dL 03/23/2019 12:32 PM [facility] Hematocrit 42.2 39.0 - 50.0 % 03/23/2019 12:32 PM [facility] MCV 85.8 81.0 - 97.0 fL 03/23/2019 12:32 PM [facility] MCH 28.7 28.0 - 34.0 pg 03/23/2019 12:32 PM [facility] MCHC 33.4 32.0 - 36.0 g/dL 03/23/2019 12:32 PM [facility] Platelet Count 308 150 - 400 10? 3 /uL 03/23/2019 12:32 PM [facility] RDW-SD 39.8 36.0 - 50.0 fL 03/23/2019 12:32 PM [facility] RDW-CV 12.7 11.2 - 14.8 % 03/23/2019 12:32 PM [facility] MPV 11.1 9.3 - 12.8 fL 03/23/2019 12:32 PM [facility] nRBC Absolute 0.00 0 10? 3 /uL 03/23/2019 12:32 PM [facility] nRBC Auto 0.0 0 /100 WBC 03/23/2019 12:32 PM [facility] Neutrophils % 74.2(H) 35.0 - 70.0 % 03/23/2019 12:32 PM [facility] Lymphocytes % 14.6(L) 19.7 - 55.1 % 03/23/2019 12:32 PM [facility] Monocytes % 9.1 3.0 - 15.0 % 03/23/2019 12:32 PM [facility] Eosinophils % 1.0 0.0 - 6.0 % 03/23/2019 12:32 PM [facility] Basophil % 0.4 0.0 - 1.5 % 03/23/2019 12:32 PM [facility] Neutrophils Absolute 9.4(H) 1.6 - 7.0 10? 3 /uL 03/23/2019 12:32 PM [facility] Lymphocyte Absolute 1.9 0.8 - 2.9 10? 3 /uL 03/23/2019 12:32 PM [facility] Monocytes Absolute 1.16(H) 0.14 - 0.66 10? 3 /uL 03/23/2019 12:32 PM [facility] Eosinophils Absolute 0.13 0.00 - 0.45 10? 3 /uL 03/23/2019 12:32 PM [facility] Basophils Absolute 0.05 0.00 - 0.06 10? 3 /uL 03/23/2019 12:32 PM [facility] Immature Granulocytes % 0.7 0.0 - 1.0 % 03/23/2019 12:32 PM [facility] Blood BLOOD SPECIMEN / Unknown Venipuncture / Unknown 03/23/2019 12:23 PM [employer] 03/23/2019 12:26 PM [employer] Sima Velazquez PA-C LAB - HEMATO LOGY ORDERABLES Performing Organization Address City/State/[facility] Co de Phone Number [address] [phone] * CT HEAD WO CONTRAST (03/23/2019 11:36 AM [employer]) Anatomical Region Laterality Modality Head Computed Tomogra phy 03/23/2019 11:3 7 AM [employer] Impressions 03/23/2019 11:44 AM [employer] IMPRESSION: No acute intracranial CT abnormality. Dictated by Kwaku Bañuelos MD (radiology orderly). I, Dr. JESSI OLEA have personally reviewed and interpreted this examination/study. This report was electronically signed by JESSI OLEA ??on 03/23/2019 11:44 AM . Narrative 03/23/2019 11:44 AM [facility] EXAM: CT HEAD WO CONTRAST CLINICAL INDICATION: R51: Acute nonintractable headache, unspecified headache type COMPARISON: None. TECHNIQUE: CT of the head was performed without contrast according to standard protocol. Automated dose reduction techniques were employed. FINDINGS: No intracranial hemorrhage or extra-axial fluid collection. Li-white matter differentiation is preserved. No mass effect, or midline shift. Basal cisterns are patent. The ventricles are normal in size, shape, and configuration. The bony calvarium appears intact. Mild mucosal thickening of the paranasal sinuses. Procedure Note Jessi Olea MD - 03/23/2019 EXAM: CT HEAD WO CONTRAST CLINICAL INDICATION: R51: Acute nonintractable headache, unspecified headache type COMPARISON: None. TECHNIQUE: CT of the head was performed without contrast according to standard protocol. Automated dose reduction techniques were employed. FINDINGS: No intracranial hemorrhage or extra-axial fluid collection. Li-white matter differentiation is preserved. No mass effect, or midline shift. Basal cisterns are patent. The ventricles are normal in size, shape, and configuration. The bony calvarium appears intact. Mild mucosal thickening of the paranasal sinuses. IMPRESSION: No acute intracranial CT abnormality. Dictated by Kwaku Bañuelos MD (radiology orderly). Dr. JESSI Chavez have personally reviewed and interpreted this examination/study. This report was electronically signed by JESSI OLEA on 03/23/2019 11:44 AM . Kevin Meng MD CT ORDERABLES documented in this encounter Visit Diagnoses Diagnosis Aseptic meningitis (HCC)- Primary Unspecified viral meningitis Acute nonintractable headache, unspecified headache type IIH (idiopathic intracranial hypertension) Benign intracranial hypertension Acute nonintractable headache documented in this encounter Administered Medications Inactive Administered Medications - up to 3 most recent administrations Medication Order MAR Action Action Date Dose Rate Site 0.9% NaCl injection 1-10 mL 1-10 mL, Intracatheter, PRN, Other, peripheral line flush, Starting on Thu03/24/19 at 1157, Until Thu03/25/19 at 1302, Flush peripheral IV catheter with 1-10 mL of normal saline before and after medications and prn to clear blood from the line or to verify patency. 0.9% NaCl injection 3 mL 3 mL, Intracatheter, EVERY 8 HOURS, First dose on Thu03/24/19 at 1400, Until Discontinued, Flush peripheral IV catheter with 3 mL of normal saline every 8 hours. $ Given 03/25/2019 4:55 AM [facility] [employer] 3 mL $ Given 03/24/2019 8:24 PM [facility] [employer] 3 mL $ Given 03/24/2019 1:45 PM [employer] 3 mL 0.9% NaCl IV Bolus 1,000 mL, at 3,000 mL/hr, Administer over 20 Minutes, NOW, 1 dose, On Thu03/23/19 at 1100 $ New Bag/Syringe 03/23/2019 12:26 PM [facility] [employer] 1,000 mL 3000 mL/hr acetaminophen (TYLENOL) tablet 500 mg 500 mg, Oral, EVERY 4 HOURS PRN, Headache, Starting on Thu03/25/19 at 0721, Until Thu03/25/19 at 1302 acetaminophen (TYLENOL) tablet 650 mg 650 mg, Oral, NOW, 1 dose, On Thu03/24/19 at 0545 $ Given 03/24/2019 6:52 AM [facility] [employer] 650 mg acetaZOLAMIDE (DIAMOX) tablet 500 mg 500 mg, Oral, 2 TIMES DAILY, First dose (after last reorder) on Thu03/24/19 at 2100, Until Discontinued $ Given 03/25/2019 8:52 AM [facility] [employer] 500 mg $ Given 03/24/2019 8:23 PM [facility] 500 mg ALPRAZolam (XANAX) tablet 0.5 mg 0.5 mg, Oral, NOW, 1 dose, On Thu03/23/19 at 1900 $ Given 03/23/2019 7:22 PM [facility] 0.5 mg amLODIPine (NORVASC) tablet 10 mg 10 mg, Oral, DAILY, First dose (after last modification) on Thu03/25/19 at 0900, Until Discontinued $ Given 03/25/2019 8:52 AM [facility] 10 mg amLODIPine (NORVASC) tablet 5 mg 5 mg, Oral, DAILY, First dose on Thu03/24/19 at 1200, Until Discontinued $ Given 03/24/2019 12:34 PM [facility] 5 mg amLODIPine (NORVASC) tablet 5 mg 5 mg, Oral, ONCE, 1 dose, On Thu03/24/19 at 2230 $ Given 03/24/2019 10:37 PM [facility] [employer] 5 mg atorvastatin (LIPITOR) tablet 20 mg 20 mg, Oral, AT BEDTIME, First dose on Thu03/24/19 at 2100, Until Discontinued $ Given 03/24/2019 8:23 PM [facility] 20 mg cyclobenzaprine (FLEXERIL) tablet 10 mg 10 mg, Oral, NOW, 1 dose, On Thu03/24/19 at 0545 $ Given 03/24/2019 6:53 AM [facility] 10 mg cyclobenzaprine (FLEXERIL) tablet 10 mg 10 mg, Oral, 3 TIMES DAILY PRN, Muscle Spasms, Starting on Thu03/24/19 at 1316, Until Thu03/25/19 at 1302 $ Given 03/24/2019 8:29 PM [facility] [employer] 10 mg $ Given 03/24/2019 1:45 PM [facility] 10 mg droperidol (INAPSINE) injection 0.625 mg 0.625 mg, Intravenous, NOW, 1 dose, On Thu03/24/19 at 0200 $ Given 03/24/2019 2:45 AM [facility] 0.625 mg gadobutrol (GADAVIST) injection Intravenous, CONTRAST ONCE, Starting on Thu03/23/19 at 2033, Until Thu03/25/19 at 1302 $ Given - Contrast 03/23/2019 8:34 PM [facility] [employer] 10 mL heparin injection 5,000 Units 5,000 Units, Subcutaneous, EVERY 8 HOURS, First dose on Thu03/24/19 at 1400, Until Discontinued $ Given 03/25/2019 4:54 AM [facility] [employer] 5,000 Units Abdominal Tissue $ Given 03/24/2019 8:25 PM [facility] [employer] 5,000 Units A bdominal Tissue $ Given 03/24/2019 1:44 PM [facility] 5,000 Units A bd Left Lower Quadrant ketorolac (TORADOL) injection 30 mg 30 mg, Intravenous, ONCE, 1 dose, On Thu03/23/19 at 1315 $ Given 03/23/2019 1:14 PM [facility] 30 mg metoclopramide (REGLAN) injection 10 mg 10 mg, Intravenous, NOW, 1 dose, On Thu03/23/19 at 1900, Inject undiluted IV slowly over 1 to 2 minutes. $ Given 03/23/2019 7:00 PM [facility] [employer] 10 mg topiramate (TOPAMAX) tablet 50 mg 50 mg, Oral, 2 TIMES DAILY, First dose on Thu03/24/19 at 2100, Until Discontinued, Swallow tablets whole if taking orally to avoid a bitter taste. $ Given 03/25/2019 8:52 AM [facility] [employer] 50 mg $ Given 03/24/2019 8:23 PM [facility] [employer] 50 mg documented in this encounter Active and Recently Administered Medications Times are shown in [employer]. Scheduled Medication Order 03/23/2019 03/24/2019 03/25/2019 0.9% NaCl injection 3 mL(Linked Group 1) 3 mL, Intracatheter, EVERY 8 HOURS, First dose on Thu03/24/19 at 1400, Until Discontinued, Flush peripheral IV catheter with 3 mL of normal saline every 8 hours. 1345 ($ Given - Provider: Jarad Patterson RN)2023 ($ Given - Provider: Shyla Ma RN) 045 ($ Given - Provider: Shyla Ma RN) 0.9% NaCl IV Bolus (COMPLETED) 1,000 mL, at 3,000 mL/hr, Administer over 20 Minutes, NOW, 1 dose, On Thu03/23/19 at 1100 1226 ($ New Bag/Syringe - Provider: Pal Kahn, RN)1402 (Stopped - Provider: Pal Kahn, KAMILA) acetaminophen (TYLENOL) tablet 650 mg (COMPLETED) 650 mg, Oral, NOW, 1 dose, On Thu03/24/19 at 0545 0652 ($ Given - Provider: Imelda Fuller RN) acetaZOLAMIDE (DIAMOX) tablet 500 mg 500 mg, Oral, 2 TIMES DAILY, First dose (after last reorder) on Thu03/24/19 at 2100, Until Discontinued 2022 ($ Given - Provider: Shyla Ma RN) 0852 ($ Given - Provider: Estrellita Santamaria RN) ALPRAZolam (XANAX) tablet 0.5 mg (COMPLETED) 0.5 mg, Oral, NOW, 1 dose, On Thu03/23/19 at 1900 1922 ($ Given - Provider: Bret Oliveira RN) amLODIPine (NORVASC) tablet 10 mg 10 mg, Oral, DAILY, First dose (after last modification) on Thu03/25/19 at 0900, Until Discontinued 0852 ($ Given - Provider: Estrellita Santamaria RN) amLODIPine (NORVASC) tablet 5 mg (CANCELED) 5 mg, Oral, DAILY, First dose on Thu03/24/19 at 1200, Until Discontinued 1234 ($ Given - Provider: Jarad Pattersno RN) amLODIPine (NORVASC) tablet 5 mg (COMPLETED) 5 mg, Oral, ONCE, 1 dose, On Thu03/24/19 at 2230 2237 ($ Given - Provider: Jadyn Morataya) atorvastatin (LIPITOR) tablet 20 mg 20 mg, Oral, AT BEDTIME, First dose on Thu03/24/19 at 2100, Until Discontinued 2022 ($ Given - Provider: Shyla Ma RN) cyclobenzaprine (FLEXERIL) tablet 10 mg (COMPLETED) 10 mg, Oral, NOW, 1 dose, On Thu03/24/19 at 0545 0653 ($ Given - Provider: Imelda Fuller, KAMILA) droperidol (INAPSINE) injection 0.625 mg (COMPLETED) 0.625 mg, Intravenous, NOW, 1 dose, On Thu03/24/19 at 0200 0245 ($ Given - Provider: Imelda Fuller, KAMILA) gadobutrol (GADAVIST) injection Intravenous, CONTRAST ONCE, Starting on Thu03/23/19 at 2033, Until Thu03/25/19 at 1302 203 ($ Given - Contrast - Provider: RT Yumiko(Judith)(MR)) heparin injection 5,000 Units 5,000 Units, Subcutaneous, EVERY 8 HOURS, First dose on Thu03/24/19 at 1400, Until Discontinued 1344 ($ Given - Provider: Jarad Patterson RN)2024 ($ Given - Provider: Shyla Ma RN) 0454 ($ Given - Provider: Shyla Ma RN) ketorolac (TORADOL) injection 30 mg (COMPLETED) 30 mg, Intravenous, ONCE, 1 dose, On Thu03/23/19 at 1315 1314 ($ Given - Provider: Oswald Turner RN) metoclopramide (REGLAN) injection 10 mg (COMPLETED) 10 mg, Intravenous, NOW, 1 dose, On Thu03/23/19 at 1900, Inject undiluted IV slowly over 1 to 2 minutes. 1900 ($ Given - Provider: Pal Kahn, KAMILA) topiramate (TOPAMAX) tablet 50 mg 50 mg, Oral, 2 TIMES DAILY, First dose on Thu03/24/19 at 2100, Until Discontinued, Swallow tablets whole if taking orally to avoid a bitter taste. 2022 ($ Given - Provider: Shyla Ma RN) 0852 ($ Given - Provider: Estrellita Santamaria RN) PRN Medication Order 03/23/2019 03/24/2019 03/25/2019 0.9% NaCl injection 1-10 mL(Linked Group 1) 1-10 mL, Intracatheter, PRN, Other, peripheral line flush, Starting on Thu03/24/19 at 1157, Until Thu03/25/19 at 1302, Flush peripheral IV catheter with 1-10 mL of normal saline before and after medications and prn to clear blood from the line or to verify patency. acetaminophen (TYLENOL) tablet 500 mg 500 mg, Oral, EVERY 4 HOURS PRN, Headache, Starting on Thu03/25/19 at 0721, Until Thu03/25/19 at 1302 cyclobenzaprine (FLEXERIL) tablet 10 mg 10 mg, Oral, 3 TIMES DAILY PRN, Muscle Spasms, Starting on Thu03/24/19 at 1316, Until Thu03/25/19 at 1302 1345 ($ Given - Provider: Jarad Patterson RN)2028 ($ Given - Provider: Shyla Ma RN) Linked Groups Order Group 1: SALINE LOCK, INSERT AND MAINTAIN (CANCELED) Routine, CONTINUOUS, Starting on Thu03/24/19 at 1200, Until Specified, New collection And 0.9% NaCl injection 3 mLJump to med 3 mL, Intracatheter, EVERY 8 HOURS, First dose on Thu03/24/19 at 1400, Until Discontinued, Flush peripheral IV catheter with 3 mL of normal saline every 8 hours. And 0.9% NaCl injection 1-10 mLJump to med 1-10 mL, Intracatheter, PRN, Other, peripheral line flush, Starting on Thu03/24/19 at 1157, Until Thu03/25/19 at 1302, Flush peripheral IV catheter with 1-10 mL of normal saline before and after medications and prn to clear blood from the line or to verify patency. documented in this encounter Care Teams Machine Maintenance Servicer Relationship Specialty Start Date End Date Clara Stanley, ASSOCIATE FINANCIAL REPRESENTATIVE-SOIL BIOLOGY TEACHER [facility] [place] [address] PCP - General Nurse Practitioner 03/23/19 documented as of this encounter
--- OUTSIDE RECORDS SUMMARY | 2024-03-02 03:17 | XMS_ITS | Encounter Summary ---
Author Organization [facility] Address [address] [facility] [place] [address] Care Team Providers Care Qa Consultant Name Role Phone LizethClara byrd Ricardo VICE PRESIDENT OF SOFTWARE DEVELOPMENT-FRETTED INSTRUMENT REPAIRER Primary Care Provider Encounter Details Date Type Department Care Team (Late st Contact Info) Description 06/08/2020 Orders Only [facility] - COVID Vaccine [address] [place] [id number] Wayne Buckner MD [address] [place] [address] Need for vaccination Social History Tobacco Use Types Packs/Day Years Used Date Smoking Tobacco: Never Smokeless Tobacco: Never Alcohol Use Standard Drinks/Week Comments Yes 0 (1 standard drink = 0.6 oz pur e alcohol) social Sex and Gender Information Value Date Recorded Sex Assigned at Not on file Gender Identity Not on file Sexual Orientation Not on file documented as of this encounter Functional Status Functional Status Response [...] No 03/25/2019 documented as of this encounter Plan of Treatment Not on file documented as of this encounter Visit Diagnoses Diagnosis Need for vaccination Need for prophylactic vaccination and inoculation against unspecified single disease documented in this encounter Care Teams Qa Consultant Relationship Specialty Start Date End Date Clara Stanley, VICE PRESIDENT OF SOFTWARE DEVELOPMENT-FRETTED INSTRUMENT REPAIRER [address] [place] [id number] PCP - General Nurse Practitioner 03/23/19 documented as of this encounter
--- OUTSIDE RECORDS SUMMARY | 2024-03-02 03:17 | XMS_ITS | Encounter Summary ---
Author Organization [facility] Address [facility] [place] [address] Care Team Providers Care Mobile Pet Groomer Name Role Phone Lizeth Clara Silva TELESALES SUPERVISOR-EDGER LINER Primary Care Provider Reason for Visit * Reason Comments Headache Encounter Details Date Type Department Care Team (Late st Contact Info) Description 04/15/2019 2:15 PM CONSERVATION SPECIALIST Office Visit [facility] Ophthalmology [address] [place] [address] Optic disc edema (Primary Dx); Papilledema associated with increased intracranial pressure Social History Tobacco Use Types Packs/Day Years [...] Sign Reading Time Taken Comments Blood Pressure - - Pulse - - Temperature - - Respiratory Rate - - Oxygen Saturation - - Inhaled Oxygen Concentration - - Weight 160.1 kg (353 lb) 04/15/2019 4:11 PM CONSERVATION SPECIALIST Height - - Body Mass Index 44.12 03/23/2019 10:50 AM CONSERVATION SPECIALIST documented in this encounter Functional Status Functional [...] No 03/25/2019 documented as of this encounter Progress Notes * Nevin Marshall MD - 04/18/2019 8:46 AM CST Keke: Could you please schedule him as est neuro in 4-6 weeks. thanks Nevin ERVATION SPECIALIST * Patel Williamson - 04/15/2019 4:20 PM CST Ophthalmology Office Note Subjective: Kwaku Kulkarni is an 53 year old Chief Complaint Patient presents with ??? Headache Kwaku Kulkarni is a 53 year old male who presents for an IOP check. Pt states that he had been hospitalized recently and was told he has intracranial hypertension. Pt states VA was blurry and improved recently OU. Pt denies pain OU. Pt denies redness/itchiness/irritation OU. Pt denies FOL/floaters OU. Gtts: None REG: Patient states that in early February he started having WARD, holocranial, up to 10/10, associated with nausea and light sensitivity. Went to an OSH ED early March and was found to have an elevated white count and told he had a viral infection and needs only supportive measures. WARD did not improve so he sent to [facility] ED on 03/23. CT head was normal, LP with OP 28 (prone position), pleocytosis with lymph predominance and increased proteins, infectious workup negative. MRI and MRV with narrow transverse sinus. ID thought the pleocytosis and increased protien is likely 2/2 Ibuprofin abuse vs aseptic meningitis. Patient states the WARD improved greatly after the LP. He was started on Diamox 500 mg BID and Topamax 50 mg BID with resolution of the WARD within a day. He was not seen by ophthalmology in the hospital. After d/c he started becoming lightheaded and was taken off of the Topamax. Denies cureent WARD. Denies any history of tinnitus and TVO Current Outpatient Medications Medication Sig Dispense Refill ??? acetaZOLAMIDE ER 12hr (DIAMOX SEQUEL) 500 MG capsule Take 1 capsule by mouth 2 times daily 60 capsule 5 ??? ALPRAZolam (XANAX) 0.5 MG tablet Take 0.5-1 mg by mouth 2 times daily as needed for Anxiety ??? amLODIPine (NORVASC) 5 MG tablet Take 1 Tab by mouth once daily (Patient taking differently: Take 10 mg by mouth once daily ) 30 Tab 11 ??? aspirin EC (ECOTRIN) 81 MG tablet Two a day. 0 ??? atorvastatin (LIPITOR) 20 MG tablet Take 20 mg by mouth at bedtime ??? cetirizine (ZYRTEC) 5 MG tablet Take 5 mg by mouth once daily ??? FLUoxetine (PROZAC) 20 MG capsule Take 20 mg by mouth once daily Along with 40 mg for total of 60 mg daily ??? FLUoxetine (PROZAC) 40 MG capsule Take 40 mg by mouth once daily Along with 20 mg for total of 60 mg daily ??? omeprazole (PRILOSEC) 40 MG capsule Take 40 mg by mouth 2 times daily ??? SUCRALFATE PO Take 16 m by mouth 4 times daily ??? zolpidem (AMBIEN) 10 MG tablet Take 10 mg by mouth nightly as needed for Insomnia 1 hour beforebedtime No current facility-administered medications for this visit. No Known Allergies Past Medical History: Diagnosis Date ??? Depressive disorder, not elsewhere classified ??? Generalized anxiety disorder Past Surgical History: Procedure Laterality Date ??? Appendectomy Family History Problem Relation Name Age of Onset ??? Coronary Artery Disease Father ??? Migraine Neg Hx ??? Seizures Neg Hx ??? Brain Tumor Neg Hx ??? Multiple Sclerosis Neg Hx Social History Tobacco Use ??? Smoking status: Never Smoker ??? Smokeless tobacco: Never Used Substance Use Topics ??? Alcohol use: No ??? Drug use: No Objective: Base Eye Exam Visual Acuity (Snellen - Linear) Right Left Dist cc 20/20 20/20-1 Correction: Contacts Tonometry (Tonopen, 2:28 PM) Right Left Pressure 12 15 Pupils Pupils Dark Light APD Right PERRL 3 2 None Left PERRL 3 2 None Visual Ramirez (Counting fingers) Left Right Full Full Extraocular Movement Right Left Full, Ortho Full, Ortho Neuro/Psych Oriented x3: Yes Dilation Both eyes: 1.0% Mydriacyl, 2.5% Curtis Synephrine @ 3:12 PM Additional Tests Color Right Left Ishihara 15/15 15/15 Slit Lamp and Fundus Exam External Exam Right Left External Normal Normal Slit Lamp Exam Right Left Lids/Lashes Normal Normal Conjunctiva/Sclera White and quiet White and quiet Cornea Clear Clear Anterior Chamber Deep and quiet Deep and quiet Iris Round and reactive Round and reactive Lens 1+ Nuclear sclerosis 1+ Nuclear sclerosis Vitreous Normal Normal Fundus Exam Right Left Disc Grade 2 edema, no heme or obscuration of vessels Grade 1-2 edema (small area with sharp margininnferotemporal), no heme or vascular obscuration C/D Ratio 0.05 0.05 Macula Normal Normal Vessels Normal Normal Periphery Sup single small pig clump Normal Studies 04/16/2019: OCT RNFL: OD:121, elevated OS: 109, elevated HVF 24-2: OD: Decreased foveal threshold, enlarged BS and central depressions but the test was done with an incorrect prescription OS: Normal foveal threshold, enlarged blind spots, nonspecific depressions Assessment/Plan: Kwaku Kulkarni is a 53 year old male Disc edema OU -Obese, BMI 44.12, reports a 12 pounds loss over the past few weeks -WARD started in February with nausea and light sensitivity. No tinnitus or TVO -CT wnl, MRI/MRV with lt transverse sinus smaller than right -LP with OP 28 (prone) -CSF studies: Pleocytosis with lymphocytic predominance, ID thought maybe related to Ibuprofen abuse. Infectious workup negative -Patient reported marked improvement of WARD after the LP -Patient was started on Diamox 500 mg BID and Topamax 50 mg BID in the hospital. Patient states that since then he has had no WARD at all -Patient stopped Topamax 2/2 light headedness -States he has been having stabbing pain in the left upper quad, had an US and CT last week which was normal. Has N and T in the right hand which is not too bothersome -Exam today with disc edema OU (he was not seen by ophthalmology in patient). OCT GCL with normal GCL -HVF with marked central depression OD but the prescription used for testing was wrong. VA 20/20 OU, color vision normal OU, GCL normal OU all suggest that this depression is not real Plan: -Continue Diamox 500 mg BID -Referral to Neuro ophtho next week Patient seen and discussed with Dr. Valdes All questions were answered to the best of my ability. Patient verbalized understanding and is in agreement with the plan. Patel Williamson MD PGY-2, Ophthalmology resident ERVATION SPECIALIST Associated attestation - Diego Valdes MD - 04/16/2019 5:17 PM CONSERVATION SPECIALIST I have examined the patient with the resident and agree with the assessment and plan, except as amended below. Patient diagnosed with papilledema in early March this year with normal neuroimaging and non-specific CSF pleocytosis. He was discharged from [facility] hospital 03/23/2019 on Diamox 500 mg PO BID (he did not tolerate Topamax). Shortly after starting Diamox, he noted worsening epigastric pain, which radiated to his flanks. CT of the abdomen showed colonic divertuculosis, no renal stones, but did show lung nodule, which will be worked up separately. On today's exam, patient does have low grade papilledema with normal vision OU, normal color visionby Ishihara plates OU, and normal pupil exams OU. OCT-Nerve/GCL today confirmed low grade papilledema with average RNFL thicknesses of 110 - 120 microns. GCL thickness is normal OU. HVF today was performed with incorrect refractive correction (patient normally wears myopic CL's, but took them out just before the test). Otherwise, the ramirez were full OU. Patient is scheduled for follow up with Dr. Marshall. Diego Valdes MD documented in this encounter Plan of Treatment Not on file documented as of this encounter Procedures Procedure Name Priority Date/Time Associated Diagnosis Comments OPH VISUAL FIELD TEST SLU Routine 04/15/2019 2:57 PM CONSERVATION SPECIALIST Optic disc edema OPH OCT TEST SLU Routine 04/15/2019 12:00 AM CONSERVATION SPECIALIST Optic disc edema documented in this encounter Results * OPH VISUAL FIELD TEST SLU (04/15/2019 2:57 PM CONSERVATION SPECIALIST) Anatomical Region Laterality Modality Other 04/15/2019 2:57 PM CONSERVATION SPECIALIST Noah Oneil MD OPHTHALMOLOGY SERVICES ORDERABLES * OCT (04/15/2019 12:00 AM CONSERVATION SPECIALIST) Anatomical Region Laterality Modality Other 04/15/2019 Patel Williamson MD OPHTHALMOLOGY SER VICES ORDERABLES documented in this encounter Visit Diagnoses Diagnosis Optic disc edema- Primary Papilloedema, unspecified Papilledema associated with increased intracranial pressure documented in this encounter Care Teams Mobile Pet Groomer Relationship Specialty Start Date End Date Clara Stanley, TELESALES SUPERVISOR-EDGER LINER [address] [place] [id number] PCP - General Nurse Practitioner 03/23/19 documented as of this encounter
--- OUTSIDE RECORDS SUMMARY | 2024-03-02 03:17 | XMS_ITS | Referral Summary ---
Author Organization [facility] Address [address] [place] [address] Care Team Providers Care Security System Installer Name Role Phone Clara Stanley APRN-HOT KNIFE CUTTER Primary Care Provider Source Comments [facility],non-owned Affiliates and Associated Physician Practices is amultiple site organization consisting of ambulatory clinics and hospital sitesin [place], [place], [place] and [place]. This disclosure is being madepursuant to the Care Everywhere program and may not contain all information available regarding this patient. Last updated 17.[facility] [employer] Allergies No known active allergies Medications * Be aware that medications may not be up to date on this document. Alwaysverify current medications with the patient. Medication Sig Dispensed Refills Start Date End Date Status atorvastatin (LIPITOR) 20 MG tablet Take 20 mg by mouth at bedtime Active amLODIPine (NORVASC) 5 MG tablet Take 1 Tab by mouth once daily 30 Tab 11 02/20/2015 Active Additional Information Patient taking differently: 10 mgOral DAILY, Reported on 03/24/2019 cetirizine (ZYRTEC) 5 MG tablet Take 5 mg by mouth once daily Active acetaZOLAMIDE ER 12hr (DIAMOX SEQUEL) 500 MG capsule Take 1 capsule by mouth 2 times daily 60 capsule 5 10/03/2019 Active LORazepam (ATIVAN) 0.5 MG tablet Take 0.5 mg by mouth as needed Active gabapentin (NEURONTIN) 300 MG capsule Take 300 mg by mouth once daily Active budesonide-formote rol (SYMBICORT) 160-4.5 MCG/ACT inhaler Inhale 2 puffs by mouth 2 times daily Active fluticasone propionate (FLONASE) 50 MCG/ACT nasal spray Mcdonald 2 sprays into each nostril 2 times daily Active budesonide-formote rol (SYMBICORT) 160-4.5 MCG/ACT inhaler Inhale 2 Inhalers by mouth 2 times daily Active albuterol HFA (PROVENTIL;VENTOLI N;PROAIR) 108 (90 Base) MCG/ACT inhaler INL 2 PFS PO Q 4 H PRN 07/27/2019 Active Ascorbic Acid 1000 MG Take 1,000 mg by mouth once daily Active Cholecalciferol 1.25 MG (06563 UT) Take 50,000 Units by mouth Active pravastatin (PRAVACHOL) 20 MG tablet 01/30/2020 Active Active Problems Problem Noted Date Diagnosed Date Mild intermittent asthma without complication Overview (02/23/2020): Last Assessment & Plan: The patient has a cough variant of asthma. He will continue with the Pepcid, Flonase and Symbicort. LEONOR (obstructive sleep apnea) 12/02/2019 Overview (02/23/2020): Last Assessment & Plan: The patient just received his auto titrating CPAP unit with a range of 5-20 cm water pressure. His DME is [employer]. Snoring 08/31/2019 Overview (02/23/2020): Last Assessment & Plan: With his snoring and daytime hypersomnia, I have recommended proceeding with a nocturnal polysomnogram with a split night protocol if necessary and no MSLT. Cough, persistent 08/03/2019 Overview (02/23/2020): Added automatically from request for surgery [id number] Last Assessment & Plan: The patient's cough has essentially resolved with treatment of his cough variant of asthma with Symbicort, gastroesophageal reflux with Pepcid and Flonase for postnasal drip. I did tell him he could try stopping the Flonase and/or the Pepcid to see if the Symbicort alone would control the cough. Allergies 07/11/2019 LEIDA (acute kidney injury) 05/28/2019 Overview (02/23/2020): Last Assessment & Plan: Elevated Cr of 1.35. Hyponatremia to 127 Restart acetazolamide. 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 Added automatically from request for surgery [id number] Added automatically from request for surgery [id number] Last Assessment & Plan: I will order a PET scan and full PFTs for the patient he will follow-up here in 1 week. IIH (idiopathic intracranial hypertension) 04/01 Acute nonintractable headache 03/23/2019 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 03/15/2019 Essential hypertension 02/21/2015 Hyperlipidemia 02/21/2015 Morbid obesity 02/21/2015 Depression with anxiety 12/12/2014 Insomnia 12/12/2014 Dry skin dermatitis 01/05/2014 Encounter for preventive health examination 03/2011 Overview (02/23/2020): appendectomytonsillectomy Social History Tobacco Use Types Packs/Day Years Used Date Smoking Tobacco: Never Smokeless Tobacco: Never Alcohol Use Standard Drinks/Week Comments Yes 0 (1 standard drink = 0.6 oz pur e alcohol) social Sex and Gender Information Value Date Recorded Sex Assigned at Not on file Gender Identity Not on file Sexual Orientation Not on file Last Filed Vital Signs Vital Sign Reading Time Taken Comments Blood Pressure 136/79 03/25/2019 7:49 AM PROGRAM CHECKER Pulse 78 03/25/2019 7:49 AM PROGRAM CHECKER Temperature 36.9 ??C (98.4 ??F) 03/25/2019 7:49 AM CS T Respiratory Rate 18 03/25/2019 7:49 AM PROGRAM CHECKER Oxygen Saturation 100% 03/25/2019 7:49 AM PROGRAM CHECKER Inhaled Oxygen Concentration - - Weight 160.1 kg (353 lb) 04/15/2019 4:11 PM PROGRAM CHECKER Height 190.5 cm (6' 3 ) 03/23/2019 10:50 AM PROGRAM CHECKER Body Mass Index 44.12 03/23/2019 10:50 AM PROGRAM CHECKER Functional Status Functional Status Response Date of [...] person have difficulty concentrating/remembering/making decisions? No 03/25/2019 Plan of Treatment Not on file Procedures Procedure Name Priority Date/Time Associated Diagnosis Comments BASIC METABOLIC PANEL (CALCIUM TOTAL) Routine 03/25/2019 3:45 AM PROGRAM CHECKER Acute nonintractable headache, unspecified headache type HIV-1 HIV-2 ANTIGEN/ANTIBODY Routine 03/24/2019 5:17 PM PROGRAM CHECKER Aseptic meningitis (HCC) from Last 3 Months or Most Recently Relevant to Health Maintenance Results * (ABNORMAL) BASIC METABOLIC PANEL (CALCIUM TOTAL) (03/25/2019 3:45 AM PROGRAM CHECKER) BUN 10 7 - 26 mg/dL 03/25/2019 4:37 AM [facility] Creatinine 0.8 0.6 - 1.2 mg/dL 03/25/2019 4:37 AM [facility] Sodium 132(L) 136 - 145 mmol/L 03/25/2019 4:37 AM [facility] Potassium 3.4(L) 3.5 - 4.5 mmol/L 03/25/2019 4:37 AM [facility] Chloride 102 98 - 107 mmol/L 03/25/2019 4:37 AM [facility] CO2 21(L) 22 - 29 mmol/L 03/25/2019 4:37 AM [facility] Glucose 101 70 - 115 mg/dL 03/25/2019 4:37 AM [facility] Calcium 9.6 8.4 - 10.2 mg/dL 03/25/2019 4:37 AM [facility] Anion Gap 12 8 - 18 03/25/2019 4:37 AM [facility] BUN/Creatinine Ratio 13 7 - 23 03/25/2019 4:37 AM [facility] Osmolality Calculated 273 270 - 300 mOsm/kg 03/25/2019 4:37 AM [facility] eGFR >60 >60 mL/min/1.7 3 m2 03/25/2019 4:37 AM [facility] Blood BLOOD SPECIMEN / Unknown Lab Venipuncture / Unknown 03/25/2019 3:45 AM PROGRAM CHECKER 03/25/2019 4:08 AM PROGRAM CHECKER Terrell Campbell MD LAB - CHEMISTRY ORD ERABLES Performing Organization Address [facility]/State/ZIP Co de Phone Number [facility] [address] [place] [address] * HIV-1 HIV-2 ANTIGEN/ANTIBODY (03/24/2019 5:17 PM PROGRAM CHECKER) HIV Antigen/Antibod y 1 & 2 Non-reacti ve Non-react lanette 03/24/2019 6:06 PM [facility] Comment: Neither HIV-1 p24 Antigen nor HIV-1/HIV-2 Antibodies are detected. ? Blood BLOOD SPECIMEN / Unknown Lab Venipuncture / Unknown 03/24/2019 5:17 PM PROGRAM CHECKER 03/24/2019 5:27 PM PROGRAM CHECKER Terrell Campbell MD LAB - HEMATOLOGY OR DERABLES [facility] [address] [place] [address], [facility] [phone] from Last 3 Months or Most Recently Relevant to Health Maintenance Advance Directives * Full Code (Latest Code Status on File) Date Activated Date Inactivated Comments 03/24/2019 11:57 AM 03/25/2019 1:07 PM * Full Code Date Activated Date Inactivated Comments 12/05/2014 9:17 PM 12/06/2014 11:29 AM Care Teams Security System Installer Relationship Specialty Start Date End Date Clara Stanley, SUPERVISOR TUNNEL HEADING-HOT KNIFE CUTTER [address] [place] [id number] PCP - General Nurse Practitioner 03/23/19
--- OUTSIDE RECORDS SUMMARY | 2024-03-02 03:17 | XMS_ITS | Patient Health Summary ---
Author Organization [facility] Address [address] [place] [address] Care Team Providers Care Dividend Deposit Voucher Clerk Name Role Phone Clara Stanley APRN-MANAGER ESTATE Primary Care Provider Note from [facility] [place]non-owned Affiliates and Associated Physician Practices is amultiple site organization consisting of ambulatory clinics and hospital sitesin [place], [place], [place] and [place]. This disclosure is being madepursuant to the Care Everywhere program and may not contain all information available regarding this patient. Last updated 17.[facility] Allergies No known active allergies Medications * Be aware that medications may not be up to date on this document. Alwaysverify current medications with the patient. * atorvastatin (LIPITOR) 20 MG tablet Take 20 mg by mouth at bedtime * amLODIPine (NORVASC) 5 MG tablet(Started 02/20/2015) Take 1 Tab by mouth once daily 11 refills left * cetirizine (ZYRTEC) 5 MG tablet Take 5 mg by mouth once daily * acetaZOLAMIDE ER 12hr (DIAMOX SEQUEL) 500 MG capsule(Started 10/03/2019) Take 1 capsule by mouth 2 times daily 5 refills by 10/02/2020 * LORazepam (ATIVAN) 0.5 MG tablet Take 0.5 mg by mouth as needed * gabapentin (NEURONTIN) 300 MG capsule Take 300 mg by mouth once daily * budesonide-formoterol (SYMBICORT) 160-4.5 MCG/ACT inhaler Inhale 2 puffs by mouth 2 times daily * fluticasone propionate (FLONASE) 50 MCG/ACT nasal spray Tilden 2 sprays into each nostril 2 times daily * budesonide-formoterol (SYMBICORT) 160-4.5 MCG/ACT inhaler Inhale 2 Inhalers by mouth 2 times daily * albuterol HFA (PROVENTIL;VENTOLIN;PROAIR) 108 (90 Base) MCG/ACT inhaler (Started 07/27/2019) INL 2 PFS PO Q 4 H PRN * Ascorbic Acid 1000 MG Take 1,000 mg by mouth once daily * Cholecalciferol 1.25 MG (14517 UT) Take 50,000 Units by mouth * pravastatin (PRAVACHOL) 20 MG tablet(Started 01/30/2020) Active Problems Problem Noted Date Diagnosed Date Mild intermittent asthma without complication LEONOR (obstructive sleep apnea) 12/02/2019 Snoring 08/31/2019 Cough, persistent 08/03/2019 Allergies 07/11/2019 LEIDA (acute kidney injury) 05/28/2019 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 Primary cancer of right lower lobe of lung 05/12 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 Solitary pulmonary nodule 04/27/2019 IIH (idiopathic intracranial hypertension) 04/01 Acute nonintractable headache 03/23/2019 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 03/15/2019 Essential hypertension 02/21/2015 Hyperlipidemia 02/21/2015 Morbid obesity 02/21/2015 Depression with anxiety 12/12/2014 Insomnia 12/12/2014 Dry skin dermatitis 01/05/2014 Encounter for preventive health examination 03/2011 Social History Tobacco Use Types Packs/Day Years [...] Comments Blood Pressure 136/79 03/25/2019 7:49 AM [facility]YCOM[facility] DECAPPER Pulse 78 03/25/2019 7:49 AM [facility]ONEYCOMB DECAPPER Temperature 36.9 ??C (98.4 ??F) 03/25/2019 7:49 AM CS T Respiratory Rate 18 03/25/2019 7:49 AM HONEYCOMB DECAPPER Oxygen Saturation 100% 03/25/2019 7:49 AM [facility]ONEYCOMB DECAPPER Inhaled Oxygen Concentration - - Weight 160.1 kg (353 lb) 04/15/2019 4:11 PM [facility]COM[facility]PER Height 190.5 cm (6' 3 ) 03/23/2019 10:50 AM [facility]COM[facility] DECAPPER Body Mass Index 44.12 03/23/2019 10:50 AM HONEYCOMB DECAPPER Procedures * OPH OCT TEST [facility]U(Performed 02/23/2020) Performed for Papilledema associated with increased intracranial pressure, Optic disc edema * OPH VISUAL FIELD TEST [facility](Performed 11/24/2019) Performed for Papilledema associated with increased intracranial pressure * OPH OCT TEST [facility]U(Performed 11/24/2019) Performed for Papilledema associated with increased intracranial pressure * OPH VISUAL FIELD TEST [facility](Performed 04/15/2019) Performed for Optic disc edema * OPH OCT TEST [facility](Performed 04/15/2019) Performed for Optic disc edema * CARDIAC EKG ORDER(Performed 04/14/2019) * SYPHILIS ANTIBODY CASCADING REFLEX(Performed 03/25/2019) Performed for Aseptic meningitis (HCC) * PHOSPHORUS BLOOD(Performed 03/25/2019) Performed for Acute nonintractable headache, unspecified headache type * MAGNESIUM BLOOD(Performed 03/25/2019) Performed for Acute nonintractable headache, unspecified headache type * CBC W AUTO DIFFERENTIAL(Performed 03/25/2019) Performed for Acute nonintractable headache, unspecified headache type * BASIC METABOLIC PANEL (CALCIUM TOTAL)(Performed 03/25/2019) Performed for Acute nonintractable headache, unspecified headache type * HIV-1 HIV-2 ANTIGEN/ANTIBODY(Performed 03/24/2019) Performed for Aseptic meningitis (HCC) * FL LUMBAR PUNCTURE(Performed 03/24/2019) Performed for Acute nonintractable headache, unspecified headache type * MANUAL DIFFERENTIAL REVIEWED(Performed 03/24/2019) Performed for Acute nonintractable headache, unspecified headache type * DIFFERENTIAL MANUAL FLUID(Performed 03/24/2019) Performed for Acute nonintractable headache, unspecified headache type * CELL COUNT W DIFFERENTIAL CSF(Performed 03/24/2019) Performed for Acute nonintractable headache, unspecified headache type * PROTEIN CSF(Performed 03/24/2019) Performed for Acute nonintractable headache, unspecified headache type * GLUCOSE CSF(Performed 03/24/2019) Performed for Acute nonintractable headache, unspecified headache type * GRAM STAIN (LAB ORDERED)(Performed 03/24/2019) Performed for Acute nonintractable headache, unspecified headache type * CULTURE CSF+GRAM STAIN(Performed 03/24/2019) Performed for Acute nonintractable headache, unspecified headache type * CULTURE CSF+GRAM STAIN(Performed 03/24/2019) Performed for Acute nonintractable headache, unspecified headache type * CRYPTOCOCCUS ANTIGEN CSF(Performed 03/24/2019) Performed for Aseptic meningitis (HCC) * HERPES SIMPLEX 1+2 PCR CSF(Performed 03/24/2019) Performed for Aseptic meningitis (HCC) * ENTEROVIRUS PCR CSF(Performed 03/24/2019) Performed for Aseptic meningitis (HCC) * EKG 12-LEAD(Performed 03/23/2019) Performed for Acute nonintractable headache, unspecified headache type * BLOOD GASES ALEX(Performed 03/23/2019) * MRI ANGIO BRAIN VENOUS WWO CONT(Performed 03/23/2019) Performed for Acute nonintractable headache, unspecified headache type * MRI BRAIN WWO CONTRAST(Performed 03/23/2019) Performed for Acute nonintractable headache, unspecified headache type * URINALYSIS W/MICROSCOPIC NO CULTURE(Performed 03/23/2019) * COMPREHENSIVE METABOLIC PANEL(Performed 03/23/2019) * CBC W AUTO DIFFERENTIAL(Performed 03/23/2019) * CT HEAD WO CONTRAST(Performed 03/23/2019) Performed for Acute nonintractable headache, unspecified headache type * STRESS TEST TREADMILL (NO IMAGING)(Performed 01/17/2015) Performed for Chest pain, unspecified chest pain type * D-DIMER(Performed 01/08/2015) Performed for Chest pain, unspecified chest pain type * HEPATIC FUNCTION PANEL(Performed 01/08/2015) Performed for Chest pain, unspecified chest pain type * TROPONIN I(Performed 01/08/2015) Performed for Chest pain, unspecified chest pain type * EKG 12-LEAD(Performed 01/08/2015) Performed for Chest pain, unspecified chest pain type * LAB RESULTS ORDER(Performed 12/12/2014) * CARDIAC RHYTHM STRIP ORDER(Performed 12/07/2014) * TROPONIN I(Performed 12/05/2014) * TROPONIN I(Performed 12/05/2014) * XR CHEST 1VW PORTABLE(Performed 12/05/2014) Performed for Acute chest pain * CK W CKMB REFLEX(Performed 12/05/2014) * COMPREHENSIVE METABOLIC PANEL(Performed 12/05/2014) * CBC W AUTO DIFFERENTIAL(Performed 12/05/2014) * TROPONIN I(Performed 12/05/2014) * EKG 12-LEAD(Performed 12/05/2014) Performed for Acute chest pain Results * OPH OCT TEST [facility]U (02/23/2020 11:28 AM HONEYCOMB DECAPPER) Anatomical Region Laterality Modality Other 02/23/2020 11:2 8 AM [facility]COM[facility] DECAPPER Nevin Marshall MD OPHTHALMOLOGY SERVIC ES ORDERABLES * OPH VISUAL FIELD TEST [facility] (11/24/2019 10:31 AM CDT) Anatomical Region Laterality Modality Other 11/24/2019 10:3 1 AM CDT Nevin Marshall MD OPHTHALMOLOGY SERVIC ES ORDERABLES * OPH OCT TEST [facility] (11/24/2019 8:43 AM CDT) Anatomical Region Laterality Modality Other 11/24/2019 8:43 AM CDT Alexander Haley MD OPHTHALMOLOGY SERVIC ES ORDERABLES * OPH VISUAL FIELD TEST [facility] (04/15/2019 2:57 PM [facility]COM[facility] DECAPPER) Anatomical Region Laterality Modality Other 04/15/2019 2:57 PM [facility]COM[facility]PER Noah Oneil MD OPHTHALMOLOGY SERVICES ORDERABLES * OCT (04/15/2019 12:00 AM H[facility]YCOMB DECAPPER) Anatomical Region Laterality Modality Other 04/15/2019 Patel Williamson MD OPHTHALMOLOGY SER VICES ORDERABLES * CARDIAC EKG ORDER (04/14/2019 3:11 PM H[facility]YCOMB DECAPPER) Narrative 04/14/2019 3:11 PM [facility]PER Ordered by an unspecified provider. Scanned Document CARDIAC SERVICES ORD ERABLES * SYPHILIS ANTIBODY CASCADING REFLEX (03/25/2019 10:30 AM HONEYCOMB DECAPPER) Pathologist [facility] Treponema pallidum Antibody Non-react lanette Non-react lanette 03/25/2019 12:01 PM [facility] Comment: No Laboratory evidence of syphilis infection. ?? Note: ??Circulating antibodies may be low or undetectable in early infection. ??If recent exposure is suspected, re-draw sample in 2-4 weeks and repeat testing. Blood BLOOD SPECIMEN / Unknown Lab Venipuncture / Unknown 03/25/2019 10:30 AM [facility]PER 03/25/2019 10:54 AM [facility]COM[facility] DECAPPER Terrell Campbell MD LAB - SEROLOGY MALIA IRVIN [facility] Organization Address City/State/ZIP Co de Phone Number [address] [phone] * (ABNORMAL) CBC W AUTO DIFFERENTIAL (03/25/2019 3:45 AM HONEYCOMB DECAPPER) Only the most recent of3 resultswithin the time period is included. [facility] WBC 13.2(H) 3.5 - 10.5 10? 3 [...] Lab Venipuncture / Unknown 03/25/2019 3:45 AM [facility]COM[facility] DECAPPER 03/25/2019 4:08 AM [facility]COM[facility] DECAPPER Terrell Campbell MD LAB - HEMATOLOGY OR DERABLES [facility] [address] [place] [address] * (ABNORMAL) BASIC METABOLIC PANEL (CALCIUM TOTAL) (03/25/2019 3:45 AM HONEYCOMB DECAPPER) BUN 10 7 - 26 mg/dL 03/25/2019 [...] Lab Venipuncture / Unknown 03/25/2019 3:45 AM [facility]YCOMB DECAPPER 03/25/2019 4:08 AM [facility] Terrell Campbell MD LAB - CHEMISTRY ORD ERABLES [address] [phone] * PHOSPHORUS BLOOD (03/25/2019 3:45 AM HONEYCOMB DECAPPER) Phosphorus 3.7 2.3 - 4.7 mg/dL 03/25/2019 4:37 AM [facility]COMB DECAPPER [facility] Blood BLOOD SPECIMEN / Unknown Lab Venipuncture / Unknown 03/25/2019 3:45 AM [facility]COM[facility] DECAPPER 03/25/2019 4:08 AM [facility] DECAPPER Terrell Campbell MD LAB - CHEMISTRY ORD ERABLES Performing Organization Address [facility] Co de Phone Number [address] [phone] * MAGNESIUM BLOOD (03/25/2019 3:45 AM H[facility]YCOMB DECAPPER) Magnesium 2.4 1.6 - 2.6 mg/dL 03/25/2019 4:37 AM [facility]COMB DECAPPER [facility] Blood BLOOD SPECIMEN / Unknown Lab Venipuncture / Unknown 03/25/2019 3:45 AM [facility]COM[facility] DECAPPER 03/25/2019 4:08 AM [facility]COM[facility]PER Terrell Campbell MD LAB - CHEMISTRY ORD ERABLES Performing Organization Address [facility] Co de Phone Number [address] [phone] * HIV-1 HIV-2 ANTIGEN/ANTIBODY (03/24/2019 5:17 PM [facility]COM[facility] DECAPPER) HIV Antigen/Antibod y 1 & 2 Non-reacti ve Non-react lanette 03/24/2019 6:06 PM [facility]COM[facility] DECAPPER [facility] Comment: Neither HIV-1 p24 Antigen nor HIV-1/HIV-2 Antibodies are detected. ? Blood BLOOD SPECIMEN / Unknown Lab Venipuncture / Unknown 03/24/2019 5:17 PM [facility]COM[facility] DECAPPER 03/24/2019 5:27 PM [facility]PER Terrell Campbell MD LAB - HEMATOLOGY OR DERABLES Performing Organization Address [facility]/ZIP Co de Phone Number [address] [phone] * FL LUMBAR PUNCTURE (03/24/2019 9:18 AM H[facility]YCOMB DECAPPER) Anatomical Region Laterality Modality Spine Radiographic Trang ging 03/24/2019 9:1 8 AM [facility]COM[facility]APPER Impressions 03/24/2019 10:18 AM [facility]COMB DECAPPER IMPRESSION: 1. Successful lumbar puncture under fluoroscopic guidance at L4-5. Dictated by Kwaku Bañuelos MD (radiology clerk). This report was approved ??by Kwaku Bañuelos ?? on 03/24/2019 9:[address] JESSI Chavez have personally reviewed and interpreted this examination/study. This report was electronically signed by JESSI OLEA ??on 03/24/2019 10:18 AM . Narrative 03/24/2019 10:18 AM H[facility]YCOMB DECAPPER EXAMINATION: Diagnostic lumbar puncture (LP) under fluoroscopic [...] FLUOROSCOPY TIME: 12 seconds Procedure Note Jessi Olea MD - 03/24/2019 EXAMINATION: Diagnostic lumbar puncture [...] L4-5. Dictated by Kwaku Bañuelos MD (radiology clerk). This report was approved by Kwaku Bañuelos on 03/24/2019 9:19 AM . I, Dr. JESSI OLEA have personally reviewed and interpreted this examination/study. This report was electronically signed by JESSI OLEA on 03/24/2019 10:18 AM . Terrell Campbell MD FLUOROSCOPY ORDERAB LES * MANUAL DIFFERENTIAL REVIEWED (03/24/2019 8:53 AM HONEYCOMB DECAPPER) Manual Differential Reviewed DIFFERENTIAL REVIEW - CONFIRMED DIFFERENTIAL REVIEW - CONFIRMED 03/24/2019 3:30 PM [facility] Cerebral spinal fluid CEREBROSPINAL FLUID SPECIMEN / Unknown Collection / Unknown 03/24/2019 8:53 AM [facility]COM[facility] DECAPPER 03/24/2019 9:38 AM [facility]COM[facility] DECAPPER Terrell Cambpell MD LAB - HEMATOLOGY OR DERABLES [address] [phone] * DIFFERENTIAL MANUAL FLUID (03/24/2019 8:53 AM HONEYCOMB DECAPPER) Lymphocytes % Fluid 83 % 03/24/2019 10:[address] [facility] Monocytes % Fluid 17 % 03/24/2019 10:26 [address] [facility] Cerebral spinal fluid CEREBROSPINAL FLUID SPECIMEN / Unknown Collection / Unknown 03/24/2019 8:53 AM [facility]COM[facility]APPER 03/24/2019 9:38 AM [facility] Terrell Campbell MD LAB - BODY FLUID OR DERABLES [address] [phone] * GRAM STAIN (LAB ORDERED) (03/24/2019 8:53 AM HONEYCOMB DECAPPER) Gram Stain Rare Polymorphonuclear cells 03/24/2019 2:07 PM [facility] Gram Stain No organisms seen 020 2:07 PM [facility] Microbiology CEREBROSPINAL FLUID SPECIMEN / Unknown Collection / Unknown 03/24/2019 8:53 AM [facility]PER 03/24/2019 9:37 AM [facility]COM[facility]PER Terrell Campbell MD LAB - MICROBIOLOGY ORDERABLES Performing Organization Address [facility]/ZIP Co de Phone Number [address] [phone] * CULTURE CSF+GRAM STAIN (03/24/2019 8:53 AM HONEYCOMB DECAPPER) Culture No growth LIAN 03/31/2019 6:06 AM [facility]COMB DECAPPER [facility] MICROBIOLOGY Gram Stain Light Polymorphonuclear cells 03/31/2019 6:06 AM [facility] Gram Stain No organisms seen 020 6:06 AM [facility]COM[facility] DECAPPER [facility] MICROBIOLOGY Cerebral spinal fluid CEREBROSPINAL FLUID SPECIMEN / Unknown Collection / Unknown 03/24/2019 8:53 AM [facility]COM[facility] DECAPPER 03/24/2019 9:37 AM H[facility]COMB DECAPPER Terrell Campbell MD LAB - MICROBIOLOGY ORDERABLES Performing Organization Address City/[facility]/ZIP Co de Phone Number [facility] [address] [place] [address] [phone] * (ABNORMAL) CELL COUNT W DIFFERENTIAL CSF (03/24/2019 8:53 AM HONEYCOMB DECAPPER) Color Fluid Colorless Colorless, Straw 03/24/2019 9:59 [...] Unknown Collection / Unknown 03/24/2019 8:53 AM [facility]COMB DECAPPER 03/24/2019 9:38 AM [facility]COMB DECAPPER Narrative [facility] - 03/24/2019 9:59 AM H[facility]COMB DECAPPER No reference ranges established for body fluid cell counts. The reference ranges provided are derived from published literature. The test results must be integrated into the clinical context for interpretation. Terrell Campbell MD LAB - BODY FLUID OR DERABLES [address] [phone] * (ABNORMAL) PROTEIN CSF (03/24/2019 8:53 AM HONEYCOMB DECAPPER) Protein CSF 69(H) 15 - 45 mg/dL 03/24/2019 9:55 [address] [facility] Cerebral spinal fluid CEREBROSPINAL FLUID SPECIMEN / Unknown Collection / Unknown 03/24/2019 8:53 AM [facility]PER 03/24/2019 9:38 AM [facility]COM[facility] DECAPPER Terrell Campbell MD LAB - BODY FLUID OR DERABLES [address] [phone] * GLUCOSE CSF (03/24/2019 8:53 AM HONEYCOMB DECAPPER) Glucose CSF 54 40 - 70 mg/dL 03/24/2019 9:55 AM [facility]COMB DECAPPER [facility] Cerebral spinal fluid CEREBROSPINAL FLUID SPECIMEN / Unknown Collection / Unknown 03/24/2019 8:53 AM [facility]COMB DECAPPER 03/24/2019 9:38 AM [facility]COM[facility] DECAPPER Terrell Campbell MD LAB - BODY FLUID OR DERABLES Performing Organization Address City/[facility]/ZIP Co de Phone Number [facility] [address] [place], [place] [id number] [place] [address] * CRYPTOCOCCUS ANTIGEN CSF (03/24/2019 8:50 AM HONEYCOMB DECAPPER) Cryptococcus Antigen CSF Negative Negative 03/24/2019 6:45 PM [facility]COMB DECAPPER [facility] Cerebral spinal fluid CEREBROSPINAL FLUID SPECIMEN / Unknown Collection / Unknown 03/24/2019 8:50 AM H[facility]COMB DECAPPER 03/24/2019 4:45 PM [facility]COM[facility] DECAPPER Terrell Campbell MD LAB - MICROBIOLOGY ORDERABLES Performing Organization Address [facility] Co de Phone Number [facility] [address] [phone] * ENTEROVIRUS PCR CSF (03/24/2019 8:50 AM HONE[facility]COMB DECAPPER) Enterovirus by PCR Not detected Not detected, Indeterminate 03/24/2019 9:10 PM [facility] Cerebral spinal fluid CEREBROSPINAL FLUID SPECIMEN / Unknown Collection / Unknown 03/24/2019 8:50 AM H[facility]YCOMB DECAPPER 03/24/2019 4:45 PM [facility]COMB DECAPPER Narrative [facility] - 03/24/2019 9:10 PM H[facility]COMB DECAPPER Not Detected results do not rule out enterovirus as a cause of infection, and must be evaluated in clinical context. This test cannot rule out other causes of meningitis, including bacteria, mycobacteria, other viruses (e.g. herpes family viruses, arboviruses, mumps virus, etc) and fungi. Terrell Campbell MD LAB - MICROBIOLOGY ORDERABLES Performing Organization Address City/[facility]/ZIP Co de Phone Number [facility] [address] [place] [address], [facility] [phone] * HERPES SIMPLEX 1+2 PCR CSF (03/24/2019 8:50 AM HONEYCOMB DECAPPER) Pathologist [facility] Herpes Simplex Virus 1 PCR CSF Not detected Not detected 03/24/2019 9:11 PM [facility]COM[facility] DEC[facility]PER [facility] Herpes Simplex Virus 2 PCR CSF Not detected Not detected 03/24/2019 9:11 PM [facility]COMB DEC[facility]PER [facility] Microbiology CEREBROSPINAL FLUID SPECIMEN / Unknown Collection / Unknown 03/24/2019 8:50 AM H[facility]COMB DECAPPER 03/24/2019 4:45 PM [facility]COM[facility]APPER Terrell Campbell MD LAB - MICROBIOLOGY ORDERABLES Performing Organization Address City/[facility] Co de Phone Number [facility] [address] [place] [address], [facility] [phone] * EKG 12-LEAD (03/23/2019 11:49 PM HONEYCOMB DECAPPER) Only the most recent of3 resultswithin the time period is included. Pathologist [facility] Ventricular Rate 79 BPM [facility]USE Atrial Rate 79 BPM [facility]USE P-R Interval 204 ms [facility] QRS Duration ms 92 ms [facility] Q-T Interval ms 378 ms [facility] M[facility] QTC Calculation (Bezet) 433 ms [facility] MUSE Calculated P [place] 51 degrees [facility] MUSE Calculated R [place] -25 degrees [facility] MUSE Calculated T [place] 51 degrees [facility] MUSE Interpretation EKG NORMAL SINUS RHYTHM ABNORMAL ECG WHEN COMPARED WITH ECG OF 17-JAN-2015 09:35, NO SIGNIFICANT CHANGE WAS FOUND Confirmed by Ilan Moran ([id number]), makeup editor Alexander Puga ([id number]) on 03/30/2019 10:52:27 PM [facility] MUSE 03/23/2019 11:4 9 PM [facility]COMB DECAPPER 03/30/2019 10:52 PM [facility]COMB DECAPPER Mukul Milan MD ECG ORDERABLES Performing Organization Address City/[facility] Co de Phone Number [facility] M[facility] * (ABNORMAL) BLOOD GASES ALEX (03/23/2019 11:04 PM HONEYCOMB DECAPPER) Pathologist [facility] pH Mixed Venous 7.43(H) 7.30 - 7.40 03/23/2019 11:[address] [facility] pCO2 Mixed Venous 37(L) 40 - 46 mmHg 03/23/2019 11:12 PM [facility] pO2 Mixed Venous 51(H) 35 - 42 mmHg 03/23/2019 11:12 PM [facility] HCO3 Mixed Venous 23.9 22.0 - 26.0 [...] Unknown Venipuncture / Unknown 03/23/2019 11:04 PM [facility]COMB [facility]APPER 03/23/2019 11:09 PM [facility]COMB DECAPPER Mukul Milan MD LAB - BLOOD GASES OR DERABLES [address] [phone] * MRI ANGIO BRAIN VENOUS WWO CONT (03/23/2019 8:34 PM HONEYCOMB DECAPPER) Anatomical Region Laterality Modality Head Magnetic Resonan ce 03/24/2019 7:13 AM H[facility]YCOMB DECAPPER Impressions 03/24/2019 12:10 PM [facility]ONEYCOMB DECAPPER IMPRESSION: 1. No evidence of acute cerebral infarction. 2. No large arterial occlusions or significant stenoses identified in the head. 3. No evidence of dural sinus thrombosis. I, Dr. ABRAHAM SANDERS have personally reviewed and interpreted this examination/study. This report was electronically signed by ABRAHAM SANDERS ??on 03/24/2019 12:10 PM . Narrative 03/24/2019 12:10 PM [facility]COMB DECAPPER EXAMINATION: 1. Magnetic resonance imaging (MRI) of [...] 3. No evidence of dural sinus thrombosis. IDr. ABRAHAM have personally reviewed and interpreted this examination/study. This report was electronically signed by ABRAHAM SANDERS on 03/24/2019 12:10 PM . Terrell Campbell MD MR ORDERABLES * MRI BRAIN WWO CONTRAST (03/23/2019 8:33 PM HONEYCOMB DECAPPER) Anatomical Region Laterality Modality Head Magnetic Resonan ce 03/24/2019 7:13 AM HONEYCOMB DECAPPER Impressions 03/24/2019 12:10 PM HONEYCOMB DECAPPER IMPRESSION: 1. No evidence of acute cerebral infarction. 2. No large arterial occlusions or significant stenoses identified in the head. 3. No evidence of dural sinus thrombosis. Dr. ABRAHAM Chavez have personally reviewed and interpreted this examination/study. This report was electronically signed by ABRAHAM SANDERS ??on 03/24/2019 12:10 PM . Narrative 03/24/2019 12:10 PM H[facility]COMB DECAPPER EXAMINATION: 1. Magnetic resonance imaging (MRI) of [...] ABRAHAM SANDERS on 03/24/2019 12:10 PM . aDgoberto Lu DO MR ORDERABLES * URINALYSIS W/MICROSCOPIC NO CULTURE (03/23/2019 2:06 PM HONEYCOMB DECAPPER) Color UA Yellow Straw, Yellow, Colorless 03/23/2019 2:20 PM [facility]COMB DEC[facility]PER [facility] Clarity UA Slt Cloudy Clear, Slt Cloudy 03/23/2019 2:20 PM [facility]COMB DECAPPER [facility] Specific [place] UA 1.005 1.005 - 1.030 03/23/2019 2:[address] [facility] pH UA 6.0 5.0 - 8.0 pH 03/23/2019 2:20 PM [facility] Protein UA Negative Negative mg/dL 03/23/2019 2:20 PM [facility] Glucose UA Negative Negative mg/dL 03/23/2019 2:20 [...] Unknown Collection / Unknown 03/23/2019 2:06 PM H[facility]COMB DECAPPER 03/23/2019 2:09 PM HONEYCOMB DECAPPER Narrative [facility] - 03/23/2019 2:20 PM HONEYCOMB DECAPPER Sima Velazquez PA-C LAB - URINAL YSIS ORDERABLES [address] [phone] * (ABNORMAL) COMPREHENSIVE METABOLIC PANEL (03/23/2019 12:23 PM HONEYCOMB DECAPPER) Only the most recent of2 resultswithin the time period is included. BUN 12 7 - 26 mg/dL 03/23/2019 12:44 PM [facility] Creatinine 0.8 0.6 - 1.2 mg/dL 03/23/2019 12:44 PM [facility] Sodium 134(L) 136 - 145 mmol/L 03/23/2019 12:44 PM [facility] Potassium 4.2 3.5 - 4.5 mmol/L 03/23/2019 12:44 PM [facility] Chloride 100 98 - 107 mmol/L 03/23/2019 12:44 PM [facility] CO2 23 22 - 29 mmol/L 03/23/2019 [...] Unknown Venipuncture / Unknown 03/23/2019 12:23 PM [facility]YCOM[facility] DECAPPER 03/23/2019 12:26 PM [facility] Sima Velazquez PA-C LAB - CHEMIS TRY ORDERABLES [address] [phone] * CT HEAD WO CONTRAST (03/23/2019 11:36 AM HONEYCOMB DECAPPER) Anatomical Region Laterality Modality Head Computed Tomogra phy 03/23/2019 11:3 7 AM HONEYCOMB DECAPPER Impressions 03/23/2019 11:44 AM HONEYCOMB DECAPPER IMPRESSION: No acute intracranial CT abnormality. Dictated by Kwaku Bañuelos MD (radiology clerk). Dr. JESSI Chavez have personally reviewed and interpreted this examination/study. This report was electronically signed by JESSI OLEA ??on 03/23/2019 11:44 AM . Narrative 03/23/2019 11:44 AM HONEYCOMB DECAPPER EXAM: CT HEAD WO CONTRAST CLINICAL INDICATION: [...] abnormality. Dictated by Kwaku Bañuelos MD (radiology clerk). Dr. JESSI Chavez have personally reviewed and interpreted this examination/study. This report was electronically signed by JESSI OLEA on 03/23/2019 11:44 AM . Kevin Meng MD CT ORDERABLES * STRESS TEST TREADMILL (NO IMAGING) (01/17/2015 9:33 AM HONEYCOMB DECAPPER) [facility] Stress Test Summary For full formatted report, please see the report link in the order. Acquisition Time: 2015-01-17 ??09:33:15 Total Exercise Time: 00:09:06 Test Indications: Chest Discomfort Medications: ECOTRIN Xanax PROZAC Lipitor Norvasc Ambien Protocol: MARK ? Max HR: 164 BPM ??94% of ??Pred: 173 BPM Max BP: 172/090 mmHG Max Work Load: 10.4 METS Reason for Termination: Fatigue Resting ECG: BORDERLINE Functional Capacity: slightly decreased HR Response to Exercise: appropriate BP Resoonse to Exercise: normal resting BP - appropriate response Chest Pain: none Arrhythmias: ventricular premature beats ST Changes: none Overall Impression: Normal stress test Diagnosis: Treadmill stress test was performed. Patient exercised for 9 mins and 6 secs on a standard Mark protocol. Slightly decreased functional exercise capacity since average for age is 10 mins nad 50 secs. Baseline ECG showed sinus rhythm with 1st degree AV block , poor R wave progression. Initial Hr was 66 bpm and peaked to 162 bpm which was 93% of the predicted max HR for age. BP increased appropriately with exercise. No exercise-induce d chest pain. Rare PVCs noted. No ST-T wave changes diagnostic for ischemia noted. Overall, thisi s a normal stress study. Confirmed by MD Lisseth, Joe ([id number]) on 01/22/2015 7:36:09 AM Attending Physician: Shelby SolomonC Referred By: ??Jerry KIM Cumberledge ? Overread By: Joe Montanez MD [facility] 01/17/2015 9:33 AM H[facility]YCOMB DECAPPER 01/22/2015 7:36 AM HONEYCOMB DECAPPER Sam Dubon MD CARDIAC SERVICES ORD ERABLES [facility] * D-DIMER (01/08/2015 11:53 AM CDT) Pathologist [facility] [place] D-Dimer 0.36 <0.50 mcg/mL FEU ESTELLA Comment: The D-Dimer test is used frequently to exclude an acute PE or DVT. In patients with a low to moderate clinical risk assessment and a D-Dimer result <0.50 mcg/mL FEU, the likelihood of a PE or DVT is very low. However, a thromboembolic event should not be excluded solely on the basis of the D-Dimer level. Increased levels of D-Dimer are associated with a PE, DVT, DIC, malignancies, inflammation, sepsis, surgery, trauma, , and advancing patient age. [Ran 2006 11:295(2):199-207] For additional information, please refer to: http://education.DriveK/faq/NYW841 (This link is being provided for informational/ educational purposes only) Test Performed at: [facility] [address] [place], [place] ??[id number] ENRICO VALDEZ DO,MPH Blood specimen (specimen) BLOOD SPECIMEN / Unknown 01/08/2015 11:53 AM CDT 01/08/2015 11:53 AM CDT Sam Dubon MD LAB - COAGULATION OR DERABLES Performing Organization Address City/State/[facility] Co de Phone Number [facility] [address] [place] [address] * TROPONIN I (01/08/2015 11:52 AM CDT) Only the most recent of4 resultswithin the time period is included. [facility] Troponin I <0.01 < OR = 0.05 ng/mL ESTELLA Comment: In accord with published recommendations, serial testing of troponin I at intervals of 2 to 4 hours for up to 12 to 24 hours is suggested in order to corroborate a single troponin I result. An elevated troponin alone is not sufficient to make the diagnosis of PA. Test Performed at: [facility] [address] [place] [address] ??[phone] ENRICO VALDEZ DO,MPH Blood specimen (specimen) BLOOD SPECIMEN / Unknown 01/08/2015 11:52 AM CDT 01/08/2015 11:52 AM CDT Sam Dubon MD LAB - CHEMISTRY MALIA IRVIN Performing Organization Address [facility] de Phone Number [facility] [address] [place] [address] * HEPATIC FUNCTION PANEL (01/08/2015 11:52 AM CDT) Pathologist [facility] Protein Total 7.3 6.1 - 8.1 g/dL [facility] Albumin 4.2 3.6 - 5.1 g/dL [facility] Globulin Total 3.1 1.9 - 3.7 g/dL (calc) [facility] Albumin/Globulin Ratio 1.4 1.0 - 2.5 (calc) [facility] Bilirubin Total 0.5 0.2 - 1.2 mg/dL [facility] Bilirubin Direct 0.1 < OR = 0.2 mg/dL [facility] Bilirubin Indirect 0.4 0.2 - 1.2 mg/dL (calc) [facility] Alkaline Phosphatase 85 40 - 115 U/L [facility] AST 19 10 - 40 U/L [facility] ALT 15 9 - 46 U/L [facility] Comment: Test Performed at: [facility] [address] ??[phone] ENRICO VALDEZ DO,MPH Blood specimen (specimen) BLOOD SPECIMEN / Unknown 01/08/2015 11:52 AM CDT 01/08/2015 11:52 AM CDT Sam Dubon MD LAB - CHEMISTRY MALIA IRVIN Performing Organization Address [facility] de Phone Number [facility] [address] [place] [address] * LAB RESULTS ORDER (12/12/2014) Jerry Fatima MD LAB - THERAPE UTI DRUG MONITORING ORDERABLES * CARDIAC RHYTHM STRIP ORDER (12/07/2014 12:04 PM CDT) Narrative 12/07/2014 12:04 PM CDT Ordered by an unspecified provider. Scanned Document CARDIAC SERVICES ORD ERABLES * XR CHEST 1VW PORTABLE (12/05/2014 2:29 PM CDT) Anatomical Region Laterality Modality Chest Radiographic Trang ging 12/05/2014 3:07 PM CDT Impressions 12/05/2014 5:05 PM CDT Normal chest. Preliminary report printed to the Emergency Room on 12/05/2014 at 1512 hours. Narrative 12/05/2014 5:05 PM CDT CHEST, ONE VIEW (12/05/2014) CLINICAL HISTORY: Chest pain. FINDINGS: The cardiomediastinal silhouette is normal. ??The lungs are well expanded and clear. ??No pleural effusion or pneumothorax. ??No significant bony abnormalities. Procedure Note Oswald Peña MD - 12/05/2014 CHEST, ONE VIEW (12/05/2014) CLINICAL HISTORY: Chest pain. FINDINGS: The cardiomediastinal silhouette is normal. The lungs are well expanded and clear. No pleural effusion or pneumothorax. No significant bony abnormalities. IMPRESSION Normal chest. Preliminary report printed to the Emergency Room on 12/05/2014 at 1512 hours. Anamaria Pham MD DIAGNOSTIC IMAGI NG ORDERABLES * CK W CKMB REFLEX (12/05/2014 2:20 PM CDT) CK 80 30 - 200 U/L 12/05/2014 2:46 PM CDT [facility] Comment: CK-MB Not Performed. Blood BLOOD SPECIMEN / Unknown Lab Venipuncture / Unknown 12/05/2014 2:20 PM CDT 12/05/2014 2:20 PM CDT Anamaria Pham MD LAB - CHEMISTRY ORDERABLES Performing Organization Address [facility] de Phone Number [facility] [address] Care Teams Dividend Deposit Voucher Clerk Relationship Specialty Start Date End Date Clara Stanley, LEAN MANUFACTURING COORDINATOR-MANAGER ESTATE [address] [place] [id number] PCP - General Nurse Practitioner 03/23/19
--- OUTSIDE RECORDS SUMMARY | 2024-03-02 03:17 | XMS_ITS | Encounter Summary ---
Author Organization [facility] Address [address] [facility] [place] [address] Care Team Providers Care Machine Tracer Name Role Phone Clara Stanley Ricardo ROCK CRUSHER-BENDER HELPER Primary Care Provider Encounter Details Date Type Department Care Team (Late st Contact Info) Description 10/03/2019 Orders Only [facility] [address] [place] [address] Alexander Haley MD [address] [facility] 2L DEPT OF OPHTHALMOLOGY [place], [place] Social History Tobacco Use Types Packs/Day Years [...] documented as of this encounter Visit Diagnoses Not on filedocumented in this encounter Care Teams Machine Tracer Relationship Specialty Start Date End Date Clara Stanley APRN-BENDER HELPER [address] [place] [id number] PCP - General Nurse Practitioner 03/23/19 documented as of this encounter
--- OUTSIDE RECORDS SUMMARY | 2024-03-02 03:17 | XMS_ITS | Clinical Summary ---
Author Organization [facility] Address [address] [facility] [place] [address] Care Team Providers Care Fitness Professional Name Role Phone Clara Stanley APRN-RN SOCIAL WORK Primary Care Provider Source Comments [facility],non-owned Affiliates and Associated Physician Practices is amultiple site organization consisting of ambulatory clinics and hospital sitesin [place], [place], [place] and [place]. This disclosure is being madepursuant to the Care Everywhere program and may not contain all information available regarding this patient. Last updated 17.[facility] [employer] Allergies No known active allergies Medications * [...] fluticasone propionate (FLONASE) 50 MCG/ACT nasal spray [place] 2 sprays into each nostril 2 times daily Active budesonide-formote rol (SYMBICORT) 160-4.5 MCG/ACT inhaler Inhale 2 Inhalers by mouth 2 times daily Active albuterol HFA (PROVENTIL;VENTOLI N;PROAIR) 108 (90 Base) MCG/ACT inhaler INL 2 PFS PO Q 4 H PRN 07/27/2019 Active Ascorbic Acid 1000 MG Take 1,000 mg by mouth once daily Active Cholecalciferol 1.25 MG (20400 UT) Take 50,000 Units by mouth Active [...] (02/23/2020): Added automatically from request for surgery [id number] Last Assessment & Plan: The patient's cough [...] (02/23/2020): Added automatically from request for surgery [id number] Last Assessment & Plan: -54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 Diet: ADAT Pain control: Epidural, D/c'd WIRE INSULATOR. 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 Added automatically from request for surgery [id number] Added automatically from request for surgery [id number] Last Assessment & Plan: I will order [...] preventive health examination 03/2011 Overview (02/23/2020): appendectomytonsillectomy Family History Medical History Relation Name Comments CAD (Coronary Artery Disease) Father Brain Tumor Neg Hx Migraine Neg Hx Multiple Sclerosis Neg Hx Seizures Neg Hx Relation Name Status Comments Father Social History Tobacco Use Types Packs/Day Years [...] Comments Blood Pressure 136/79 03/25/2019 7:49 AM LIGHT BULB ASSEMBLER Pulse 78 03/25/2019 7:49 AM LIGHT BULB ASSEMBLER Temperature 36.9 ??C (98.4 ??F) 03/25/2019 7:49 AM CS T Respiratory Rate 18 03/25/2019 7:49 AM LIGHT BULB ASSEMBLER Oxygen Saturation 100% 03/25/2019 7:49 AM LIGHT BULB ASSEMBLER Inhaled Oxygen Concentration - - Weight 160.1 kg (353 lb) 04/15/2019 4:11 PM LIGHT BULB ASSEMBLER Height 190.5 cm (6' 3 ) 03/23/2019 10:50 AM LIGHT BULB ASSEMBLER Body Mass Index 44.12 03/23/2019 10:50 AM LIGHT BULB ASSEMBLER Plan of Treatment Health Maintenance Due Date Last Done Comments COLOGUARD (AGES 45-75) - COL ON CA SCREENING 1967 COLON MONITORING 1967 COLONOSCOPY - COLON CA SCREENING 1967 CT COLONOGRAPHY - COLON CA SCREENING 1967 Colorectal Cancer Screening 1967 FIT - COLON CA SCREENING 1967 FLEX SIG - COLON CA SCREENING 1967 PNEUMOCOCCAL VACCINE (1 of 2 - PCV) 1973 HEPATITIS C SCREENING 05/08/1985 DTAP/TDAP/TD VACCINES (1 - Tdap) 1986 HEPATITIS B VACCINE (1 of 3 - 19+ 3-dose series) 1986 ZOSTER VACCINE (1 of 2) 2017 SCREENING FOR DIABETES 03/25/2022 0, 03/23/2019, 12/05/2014 DEPRESSION SCREENING 03/16/2023 COVID-19 VACCINE ( - 2023-2 5 season) 2023 INFLUENZA VACCINE (#1) 2023 HIV SCREENING Completed 03/24/2019 HIB VACCINE Aged Out No longer eligi ble based on patient's age to complete this topic HPV VACCINE Aged Out No longer eligi ble based on patient's age to complete this topic MENINGOCOCCAL VACCINE Aged Out No kavon ana eligible based on patient's age to complete this topic Procedures Procedure Name Priority Date/Time Associated Diagnosis Comments BASIC METABOLIC PANEL (CALCIUM TOTAL) Routine 03/25/2019 3:45 AM LIGHT BULB ASSEMBLER Acute nonintractable headache, unspecified headache type HIV-1 HIV-2 ANTIGEN/ANTIBODY Routine 03/24/2019 5:17 PM LIGHT BULB ASSEMBLER Aseptic meningitis (HCC) from Last 3 Months or Most Recently Relevant to Health Maintenance Results * (ABNORMAL) BASIC METABOLIC PANEL (CALCIUM TOTAL) (03/25/2019 3:45 AM LIGHT BULB ASSEMBLER) BUN 10 7 - 26 mg/dL 03/25/2019 4:37 AM [facility] Creatinine 0.8 0.6 - 1.2 mg/dL 03/25/2019 4:37 AM [facility] Sodium 132(L) 136 - 145 mmol/L 03/25/2019 4:37 AM [facility] Potassium 3.4(L) 3.5 - 4.5 mmol/L 03/25/2019 4:37 AM [facility] Chloride 102 98 - 107 mmol/L 03/25/2019 4:37 AM [facility] CO2 21(L) 22 - 29 mmol/L 03/25/2019 4:37 AM [facility] Glucose 101 70 - 115 mg/dL 03/25/2019 4:37 AM [facility] Calcium 9.6 8.4 - 10.2 mg/dL 03/25/2019 4:37 AM [facility] Anion Gap 12 8 - 18 03/25/2019 4:37 AM [facility] BUN/Creatinine Ratio 13 7 - 23 03/25/2019 4:37 AM [facility] Osmolality Calculated 273 270 - 300 mOsm/kg 03/25/2019 4:37 AM [facility] eGFR >60 >60 mL/min/1.7 3 m2 03/25/2019 4:37 AM [facility] Blood BLOOD SPECIMEN / Unknown Lab Venipuncture / Unknown 03/25/2019 3:45 AM LIGHT BULB ASSEMBLER 03/25/2019 4:08 AM LIGHT BULB ASSEMBLER Terrell Campbell MD LAB - CHEMISTRY ORD ERABLES [facility] [address] [phone] * HIV-1 HIV-2 ANTIGEN/ANTIBODY (03/24/2019 5:17 PM LIGHT BULB ASSEMBLER) HIV Antigen/Antibod y 1 & 2 Non-reacti ve Non-react lanette 03/24/2019 6:06 PM LIGHT BULB ASSEMBLER [facility] Comment: Neither HIV-1 p24 Antigen nor HIV-1/HIV-2 Antibodies are detected. ? Blood BLOOD SPECIMEN / Unknown Lab Venipuncture / Unknown 03/24/2019 5:17 PM LIGHT BULB ASSEMBLER 03/24/2019 5:27 PM LIGHT BULB ASSEMBLER Terrell Campbell MD LAB - HEMATOLOGY OR DERABLES [address] [phone] from Last 3 Months or Most Recently Relevant to Health Maintenance Advance Directives * Full Code (Latest Code Status on File) Date Activated Date Inactivated Comments 03/24/2019 11:57 AM 03/25/2019 1:07 PM * Full Code Date Activated Date Inactivated Comments 12/05/2014 9:17 PM 12/06/2014 11:29 AM Care Teams Fitness Professional Relationship Specialty Start Date End Date Clara Stanley, SIPHON OPERATOR-RN SOCIAL WORK [address] [place] [phone] PCP - General Nurse Practitioner 03/23/19
--- OUTSIDE RECORDS SUMMARY | 2024-03-02 03:17 | XMS_ITS | Encounter Summary ---
Author Organization [facility] Address [facility] [place] [address] Care Team Providers Care Director Of Annual Giving Name Role Phone Clara Stanley Ricardo FRAZIERN-PSYCH NP Primary Care Provider Reason for Visit * Reason Onset Date Comments Refill Request 10/03/2019 Encounter Details Date Type Department Care Team (Late st Contact Info) Description 10/03/2019 Telephone [facility] [address] [place] [address] Alexander Haley MD [address] [facility] 2L DEPT OF OPHTHALMOLOGY [place], [place] Refill Request Social History Tobacco Use Types Packs/Day Years [...] No 03/25/2019 documented as of this encounter Miscellaneous Notes * Telephone Encounter - Alexander Haley MD - 10/03/2019 3:05 PM CDT Called and Left Message for Mr. Kulkarni. Refill for Diamox approved, however, we will need to seehim in clinic on 11/24/19 in order to ensure effective dosing. Pt has Hx of multiple cancellations due to COVID. Encouraged to call back if any changes in his vision (Flashes, floaters, TOVs, diplopia). Alexander Haley MD Ophthalmology PGY-4 Pager: [phone] 10/03/2019 3:07 PM documented in this encounter Plan of Treatment Not on file documented as of this encounter Visit Diagnoses Not on filedocumented in this encounter Care Teams Director Of Annual Giving Relationship Specialty Start Date End Date Clara Stanley, SALES PLANNER-PSYCH NP [address] [place] [phone] PCP - General Nurse Practitioner 03/23/19 documented as of this encounter
--- OUTSIDE RECORDS SUMMARY | 2024-03-02 03:17 | XMS_ITS | Encounter Summary ---
Author Organization 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 Marshall - It is important that you follow up with us for the health of your eyes. - If you have trouble making or getting to your appointment please call our clinic Medication: Continue diamox 500mg two times per day Activity Instructions: Do Not Rub your Eyes Reasons to call: - call with any new changes in vision, including if you feel your vision worsens - call if you have new flashes, floaters, or a feeling of a curtain coming down over your vision - call with any questions about your drops or eye medications, or if you have trouble getting thesemedicines. Phone Number: Weekdays (8am-5pm) - Call [phone] () Evenings, Weekends, or Holidays: Call [phone] and dial [phone] for the turret press operator. Ask to speak to the eye doctor transportation assistant. They will connect us. documented in this encounter Progress Notes * Nevin Marshall MD - 11/24/2019 2:49 PM CDT Past presentation of new onset headaches in March Papilledema noted And workup negative with MRI/MRV but did have raised ICP at 28 And CSF positive for lymphocyte pleocytosis at the time-which was interpreted by ID as Ibuprofen use related Interval h/o incidental lung nodule which was detected to be Neuroendocrine carcinoma, intermediategrade (atypical carcinoid): lung bx with 1 lymph node positive Started on Diamox then Asymptomatic now Today with resolved papilledema Could this be related to carcinoid? No other factors for raised ICP-no medications or recent weight gain, does have recent dx of sleep apnea Plan: Can decrease PO diamox to 500 once A day Treat sleep apnea 3 months follow up dfe and OCT nerve Patient seen and examined with Resident. I confirm history, exam, assessment and plan. In addition,I interpreted the diagnostic tests myself and agree with the reported interpretation in the chart. Date of service: 11/24/2019 The plan was discussed with the patient and follow up compliance was agreed upon. I have made changes as needed and highlighted some elements in bold. Nevin Marshall MD documented in this encounter Plan of Treatment Scheduled Orders Name Type Priority Associated Diagnoses Orde r Schedule OPH OCT TEST [facility] Op[facility]mology Routine Papilledema associated with increased intracranial pressure Ordered: 11/24/2019 documented as of this encounter Procedures Procedure Name Priority Date/Time Associated Diagnosis Comments OPH VISUAL FIELD TEST [facility] Routine 11/24/2019 10:31 AM CDT Papilledema associated with increased intracranial pressure OPH OCT TEST [facility] Routine 11/24/2019 8:43 AM CDT Papilledema associated with increased intracranial pressure documented in this encounter Results * OPH VISUAL FIELD TEST [facility] (11/24/2019 10:31 AM CDT) Anatomical Region Laterality Modality Other 11/24/2019 10:3 1 AM CDT Nevin Marshall MD OPHTHALMOLOGY SERVIC ES ORDERABLES * OPH OCT TEST [facility] (11/24/2019 8:43 AM CDT) Anatomical Region Laterality Modality Other 11/24/2019 8:43 AM CDT Alexander Haley MD OPHTHALMOLOGY SERVIC ES ORDERABLES documented in this encounter Visit Diagnoses Diagnosis Papilledema associated with increased intracranial pressure- Primary documented in this encounter Care Teams Vocational Education Teacher Relationship Specialty Start Date End Date Clara Stanley, RN NAVIGATOR-SMOKED MEAT PREPARER [address] [place] [id number] PCP - General Nurse Practitioner 03/23/19 documented as of this encounter
--- OUTSIDE RECORDS SUMMARY | 2024-03-02 03:17 | XMS_ITS | Encounter Summary ---
Author Organization [facility] Address [facility] [place] [address] Care Team Providers Care Furniture Cleaner Name Role Phone LizethClara byrd Ricardo WEB DESIGN INSTRUCTOR-BASEBALL PITCHER Primary Care Provider Reason for Visit * Reason Onset Date Comments Appointment 2019 Encounter Details Date Type Department Care Team (Late st Contact Info) Description 2019 Telephone [facility] [address] [place] [address] Nevin Marshall MD No information available Appointment Social History Tobacco Use Types Packs/Day Years [...] encounter Miscellaneous Notes * Telephone Encounter - Joyce Nelson - 2019 10:52 AM CST Pt has to reschedule appt and will not be making it in on 05/19/19. Sent him to [facility] to reschedule for new appt. N FORESTER documented in this encounter Plan of Treatment Not on file documented as of this encounter Visit Diagnoses Not on filedocumented in this encounter Care Teams Furniture Cleaner Relationship Specialty Start Date End Date Clara Stanley, WEB DESIGN INSTRUCTOR-BASEBALL PITCHER [address] [place] [phone] PCP - General Nurse Practitioner 03/23/19 documented as of this encounter
--- OUTSIDE RECORDS SUMMARY | 2024-03-02 03:17 | XMS_ITS | Encounter Summary ---
Author Organization [facility] Address [facility] [place] [address] Care Team Providers Care Boarding Machine Operator Name Role Phone Clara Stanley Ricardo TREE PULLER-BRANCH MAKER Primary Care Provider Reason for Visit * Reason Onset Date Comments Refill Request 10/03/2019 Encounter Details Date Type Department Care Team (Late st Contact Info) Description 10/03/2019 Refill [facility] [address] [place] [address] Nevin Marshall MD No information available Refill Request Social History Tobacco Use Types [...] * Telephone Encounter - Joyce Nelson - 10/03/2019 12:35 PM CDT [facility] Diamox 500mg capsule Pt is scheduled to see SK in November but pt is completely out currently. Was cx earlier this yeardue to COVID. Please review and assist. documented in this encounter Plan of Treatment Not on file documented as of this encounter Visit Diagnoses Not on filedocumented in this encounter Care Teams Boarding Machine Operator Relationship Specialty Start Date End Date Clara Stanley, TREE PULLER-BRANCH MAKER [address] [place] [phone] PCP - General Nurse Practitioner 03/23/19 documented as of this encounter
--- OUTSIDE RECORDS SUMMARY | 2024-03-02 03:17 | XMS_ITS | Encounter Summary ---
Author Organization [facility] Address [address] [facility] [place] [address] Care Team Providers Care Coating Supervisor Name Role Phone Jerry Fatima MD Primary Care Provide r Reason for Visit * Reason Comments Chest Pain * Cardiac (Routine) - Closed Specialty Diagnoses / Procedures Referred By Contact Referred To Contact Cardiovascular Disease / Cardiology Diagnoses Other chest pain Procedures [place] OFFICE CONSULTATION,[facility] OFFICE/OUTPT VISIT,EST,LEVL III Jerry Fatima MD [address] [place] [address] Sam Dubon MD [address] [place] [id number] Referral ID Status Reason Start Date Expiration Date Visits Re quested Visits Authorized [id number] Closed 12/19/2014 12/19/2015 12 12 Encounter Details Date Type Department Care Team (Late st Contact Info) Description 02/20/2015 11:45 AM RETIREMENT SPECIALIST Office Visit [facility] Heart & Vascular Care [address] [place] [address] [address] [place] [address] Sam Dubon MD [address] [place] [id number] Essential hypertension (Primary Dx); Hyperlipidemia, unspecified hyperlipidemia; Morbid obesity, unspecified obesity type (HCC) Social History Tobacco Use Types Packs/Day Years [...] Sign Reading Time Taken Comments Blood Pressure 128/86 02/20/2015 12:43 PM RETIREMENT SPECIALIST Pulse 70 02/20/2015 12:43 PM RETIREMENT SPECIALIST Temperature - - Respiratory Rate - - Oxygen Saturation - - Inhaled Oxygen Concentration - - Weight 152.6 kg (336 lb 6 oz) 02/20/2015 12:43 P M RETIREMENT SPECIALIST Height 190.5 cm (6' 3 ) 02/20/2015 12:43 PM RETIREMENT SPECIALIST Body Mass Index 42.04 02/20/2015 12:43 PM RETIREMENT SPECIALIST documented in this encounter Functional Status Functional Status Response Date of Assess ment Is person deaf or have serious hearing difficult y? No 12/06/2014 Is person blind or have serious difficulty seein g? No 12/06/2014 Does person have serious dif ficulty walking/climbing stairs? No 12/06/2014 Does person have difficulty dressing/bathing? No 12/06/2014 Does person have difficulty doing errands alone? No 12/06/2014 Cognitive Status Response Date of Assessm ent Does person have difficulty concentrating/remembering/making decisions? No 12/06/2014 documented as of this encounter Progress Notes * Sam Dubon MD - 02/20/2015 12:51 PM CST Carlos Kwaku Kulkarni 1965 [facility] Heart [place] [facility] Progress Note Follow up for: hospital admission, hypertension and hyperlipidemia HPI: Mr. Kulkarni is a 49-year-old pleasant white male who was recently seen in my office in for hospital admission with chest pain. his stress test was negative for ischemia. During his hospital admission, His troponins were negative.?? He was discharged home on Norvasc, Lipitor and aspirin.?? He had discontinued taking Lipitor because of diffuse myalgia from the medication. He is more careful with his diet. He has not start an exercise program. He had managed to lose 20 lb he is still on Norvasc. His cholesterol is 206, HDL 55, LDL 124. He denies any history of GI bleed, stroke, seizure, congestive heart failure or dysrhythmia. Patient Active Problem List Diagnosis ??? Essential hypertension ??? Hyperlipidemia ??? Morbid obesity Past Medical History Diagnosis Date ??? Generalized anxiety disorder ??? Depressive disorder, not elsewhere classified Past Surgical History Procedure Laterality Date ??? Appendectomy History Social History ??? Marital Status: Spouse Name: N/A Number of Children: N/A ??? Years of Education: N/A Occupational History ??? Not on file. Social History Main Topics ??? Smoking status: Never Smoker ??? Smokeless tobacco: Not on file ??? Alcohol Use: No ??? Drug Use: No ??? Sexual Activity: Not on file Other Topics Concern ??? Not on file Social History Narrative Family History Problem Relation Age of Onset ??? Coronary Artery Disease Father Review of Symptoms: A comprehensive review of systems was negative except as described in HPI. Exam Vitals: 02/20/15 1243 BP: 128/86 Pulse: 70 Weight: 152.579 kg (336 lb 6 oz) Body mass index is 42.04 kg/(m^2). General appearance: alert, cooperative, no distress Head: normocephalic, without trauma Eyes: sclera and conjunctiva clear, Pupils equal, round and reactive ENMT: lips without lesions, dentition -no major abnormalities, oropharynx is clear Neck: no masses, thyroid not enlarged, no adenopathy. Trachea is midline Back: no deformity or tenderness Chest: no tenderness Lungs: breath sounds normal and symmetric; no rales or wheezes, unlabored respiration. Heart: regular rhythm, normal S1 and S2, without murmurs, gallops or rubs. JVD: 8 cm Abdomen: soft without mass, non-tender, with normal bowel sounds Extremities: no clubbing, cyanosis. No edema Circulation: Femoral are intact and symmetrical. Pedal pulses 2+, aorta is not enlarged. Radial pulses intact and symmetric, Carotids 2+,no carotid bruits Joints: ranges of motion normal without inflammation, effusion or deformity Skin: warm, no rashes in visible areas Neurologic/psych: mental status normal; alert and oriented X 3 Musculoskeletal system: No significant abnormalities noted. No Known Allergies Medications: Current Outpatient Prescriptions Medication Sig Dispense Refill ??? amLODIPine (NORVASC) 5 MG tablet Take 1 Tab by mouth once daily 30 Tab 11 ??? aspirin EC (ECOTRIN) 81 MG tablet Two a day. 0 ??? ALPRAZolam (XANAX) 0.5 MG tablet Take 0.5-1 mg by mouth 2 times daily as needed for Anxiety ??? zolpidem (AMBIEN) 10 MG tablet Take 10 mg by mouth nightly as needed for Insomnia 1 hour beforebedtime ??? atorvastatin (LIPITOR) 20 MG tablet Take 20 mg by mouth at bedtime ??? FLUoxetine (PROZAC) 40 MG capsule Take 40 mg by mouth once daily Along with 20 mg for total of 60 mg daily ??? FLUoxetine (PROZAC) 20 MG capsule Take 20 mg by mouth once daily Along with 40 mg for total of 60 mg daily No current facility-administered medications for this visit. Data Recent Labs Component Name 01/08/15 1152 12/05/14 1955 12/05/14 1646 TROPONIN <0.01 <0.012 <0.012 @No results for input(s): TROPPOCT in the last 28115 hours. Recent Labs Component Name 12/05/14 1416 SODIUM 138 POTASSIUM 3.9 CHLORIDE 103 CO2 25 BUN 14.1 CREATININE 0.85 GLUCOSE 88 CALCIUM 9.8 Recent Labs Component Name 12/05/14 1416 WBC 10.7* HGB 13.3* HCT 39.7* PLTCOUNT 231 Impression: ICD-10-CM ICD-9-CM 1. Essential hypertension I10 401.9 2. Hyperlipidemia, unspecified hyperlipidemia E78.5 272.4 3. Morbid obesity, unspecified obesity type E66.01 278.01 Plan: 1. En all couraged to continue with his diet program. Recommended to initiate a regular walking exercise program. Continue to lose weight. BMI is still about 42. He is at increased risk for obstructive sleep apnea and other complications. 2. He could not tolerate statin because of myalgia. Repeat lipid profile in 6 months while on a good dietary regimen. 3. Follow blood pressure at home. If blood pressure remains below 130 mm of mercury, we could try to get him off of Norvasc. 4. Follow up in 1 year Thank you. Please call if there are any questions. Sam uDbon MD, FAC, [facility] salesperson floor coverings [facility] Heart institute Office REMENT SPECIALIST documented in this encounter Plan of Treatment Not on file documented as of this encounter Visit Diagnoses Diagnosis Essential hypertension- Primary Hyperlipidemia, unspecified hyperlipidemia Morbid obesity, unspecified obesity type (HCC) documented in this encounter Care Teams Coating Supervisor Relationship Specialty Start Date End Date Jerry Fatima MD PCP - General Family Medicine 12/05/14 03/22/19 documented as of this encounter
--- OUTSIDE RECORDS SUMMARY | 2024-03-02 03:17 | XMS_ITS | Encounter Summary ---
Author Organization [facility] Address [facility] [facility] [place] [address] Care Team Providers Care External Grinder Tender Name Role Phone LizethClara byrd Ricrado ART HISTORY PROFESSOR-AIRCRAFT GENERAL REPAIR MECHANIC Primary Care Provider Reason for Visit * Reason Onset Date Comments Low Back Pain 03/25/2019 Encounter Details Date Type Department Care Team (Late st Contact Info) Description 03/25/2019 Telephone [facility] NE[facility]&PSYCH [address] [place] [address] Matteo Sebastian MD [address] [place] [address] Low Back Pain Social History Tobacco Use Types Packs/Day Years [...] encounter Miscellaneous Notes * Telephone Encounter - Matteo Sebastian MD - 04/03/2019 10:43 AM CST Pts called and reports pt had lower back pain after LP. States pt had been laying in the ED for several hours, denied any recent heavy lifting/physcial activity. Additionally, reports pt was DC'd on Topamax and Diamox for IIH. Pt developed tingling with Topamax and subsequently discontented the medication. I advised to have pt should follow up with PCP for lower back which may indeed besecondary to having been supine for a long period. For tingling pt can take Topamax at a lower doseand then increase gradually after 2 weeks. Matteo Sebastian MD 04/03/2019 10:48 AM KER MACHINE TENDER documented in this encounter Plan of Treatment Not on file documented as of this encounter Visit Diagnoses Not on filedocumented in this encounter Care Teams External Grinder Tender Relationship Specialty Start Date End Date Clara Stanley, ART HISTORY PROFESSOR-AIRCRAFT GENERAL REPAIR MECHANIC [address] [place] [id number] PCP - General Nurse Practitioner 03/23/19 documented as of this encounter
--- OUTSIDE RECORDS SUMMARY | 2024-03-02 03:17 | XMS_ITS | Encounter Summary ---
Author Organization [facility] Address [address] [facility] [place] [address] Care Team Providers Care Sand Filler Name Role Phone LizethRosettapriscila Silva TELEVISION PRODUCTION CLERK-CONTENT STRATEGIST Primary Care Provider Reason for Visit * Reason Comments Follow-up Papilledema associat ed with increased intracranial pressure Encounter Details Date Type Department Care Team (Late st Contact Info) Description 02/23/2020 1:15 PM PATCH SANDER Office Visit [facility] Ophthalmology [facility] [place] [address] Nevin Marshall MD No information available 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 Follow-up Papilledema associated with increased intracranial pressure Kwaku Kulkarni is a 54 year old male is here following Papilledema associated with increased intracranial pressure. Patient notices no changes in vision. Patient denies pain, flashes or floaters. Headaches are staying away. Gtt: none Current Outpatient Medications Medication Sig Dispense Refill ??? acetaZOLAMIDE ER 12hr (DIAMOX SEQUEL) 500 MG capsule Take 1 capsule by mouth 2 times daily 60 capsule 5 ??? albuterol HFA (PROVENTIL;VENTOLIN;PROAIR) 108 (90 Base) MCG/ACT inhaler INL 2 PFS PO Q 4 H PRN ??? amLODIPine (NORVASC) 5 MG tablet Take 1 Tab by mouth once daily (Patient taking differently: Take 10 mg by mouth once daily ) 30 Tab 11 ??? Ascorbic Acid 1000 MG Take 1,000 mg by mouth once daily ??? atorvastatin (LIPITOR) 20 MG tablet Take 20 mg by mouth at bedtime ??? budesonide-formoterol (SYMBICORT) 160-4.5 MCG/ACT inhaler Inhale 2 Inhalers by mouth 2 times daily ??? budesonide-formoterol (SYMBICORT) 160-4.5 MCG/ACT inhaler Inhale 2 puffs by mouth 2 times daily ??? cetirizine (ZYRTEC) 5 MG tablet Take 5 mg by mouth once daily ??? Cholecalciferol 1.25 MG (29563 UT) Take 50,000 Units by mouth ??? fluticasone propionate (FLONASE) 50 MCG/ACT nasal spray [place] 2 sprays into each nostril 2 times daily ??? gabapentin (NEURONTIN) 300 MG capsule Take 300 mg by mouth once daily ??? LORazepam (ATIVAN) 0.5 MG tablet Take 0.5 mg by mouth as needed ??? pravastatin (PRAVACHOL) 20 MG tablet No current facility-administered medications for this visit. No Known Allergies Objective: Base Eye Exam Visual Acuity (Snellen - Linear) Right Left Dist cc 20/15 20/20 -3 Correction: Contacts Tonometry (Tonopen, 1:10 PM) Right Left Pressure 7 9 Pupils APD Right None Left None Visual Ramirez Left Right Full Full Extraocular Movement Right Left Full Full Neuro/Psych Oriented x3: Yes Mood/Affect: Normal Dilation Both eyes: 1.0% Mydriacyl, 2.5% Curtis Synephrine @ 1:11 PM Additional Notes OCT Ganglion Cell ?OD: signal strength 10/10, avg thickness 86,??stable ?OS: signal strength 9/10, avg thickness??86, stable ?? RNFL ?OD: signal strength 9/10, avg thickness??84,??slight decrease from 87 ?OS: signal strength 8/10, avg thickness??89,??stable ?? Slit Lamp and Fundus Exam External Exam Right Left External Normal Normal Slit Lamp Exam Right Left Lids/Lashes Normal Normal Conjunctiva/Sclera White and quiet White and quiet Cornea Clear Clear Anterior Chamber Deep and quiet Deep and quiet Iris Round and reactive Round and reactive Lens 1+ Nuclear sclerosis 1+ Nuclear sclerosis Vitreous Normal Normal Fundus Exam Right Left Disc Sharp, pink, trace superior polar elevation [place], mild nasal elevation/blur C/D Ratio 0.05 0.05 Macula Normal Normal Vessels Normal Normal Periphery Normal Normal Assessment/Plan: Past presentation of new onset headaches in March 2019 Papilledema noted Workup negative with MRI/MRV but did have raised ICP at 28 And CSF positive for lymphocyte pleocytosis at the time - which was interpreted by ID as Ibuprofen use related ?? Started on Diamox in March - orginally was doing 500mg BID, was decreased to 500mg QD in November Remains asymptomatic now - denies TOVs, pulsatile tinnitus, headaches, visual changes, or diplopia. 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 Canchola at [facility] in May, due for repeat imagine March (last in September) ?? Today with resolved papilledema Could this be related to carcinoid? No other factors for raised ICP-no medications or recent weight gain, does have recent dx of sleep apnea - started wearing CPAP machine few months ago ?? Plan: stop diamox Continue CPAP 3 months follow up DFE and OCT nerve Lindsay Hoff MD Ophthalmology, PGY-3 Patient seen and examined with Resident. I confirm history, exam, assessment and plan. In addition,I interpreted the diagnostic tests myself and agree with the reported interpretation in the chart. Date of service: 02/23/2020 The plan was discussed with the patient and follow up compliance was agreed upon. I have made changes as needed and highlighted some elements in bold. 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 documented in this encounter Results * OPH OCT TEST SLU (02/23/2020 11:28 AM PATCH SANDER) Anatomical Region Laterality Modality Other 02/23/2020 11:2 8 AM PATCH SANDER Nevin Marshall MD OPHTHALMOLOGY SERVIC ES ORDERABLES documented in this encounter Visit Diagnoses Diagnosis Papilledema associated with increased intracranial pressure- Primary Optic disc edema Papilloedema, unspecified documented in this encounter Care Teams Sand Filler Relationship Specialty Start Date End Date Clara Stanley, TELEVISION PRODUCTION CLERK-CONTENT STRATEGIST [address] [place] [id number] PCP - General Nurse Practitioner 03/23/19 documented as of this encounter
--- OUTSIDE RECORDS SUMMARY | 2024-03-02 03:17 | XMS_ITS ---
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 Diet: ADAT Pain control: Epidural, D/c'd EPOXY SPECIALIST. 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 Added automatically from request for surgery [id number] Added automatically from request for surgery [id number] Last Assessment & Plan: I will order [...] preventive health examination 03/2011 Overview (02/23/2020): appendectomytonsillectomy Current Oncology Plans No current plan information found. Past Plans No past plan information found. Radiation Treatments * No radiation treatments are documented for this patient in [facility]. Treatments may have been administered in another system. Lifetime Dose Tracking * Chemical Lifetime Dose Automatic Entry Manual Entr y Dose Length Product 888 mGy-cm 888 mGy-cm 0 mGy-cm
--- OUTSIDE RECORDS SUMMARY | 2024-03-02 03:18 | XMS_ITS | Encounter Summary ---
Author Organization [facility] Address [address] [facility] [place] [address] Care Team Providers Care Planishing Hammer Operator Name Role Phone Jerry Fatima MD Primary Care Provide r Reason for Visit * Cardiac - Closed Specialty Diagnoses / Procedures Referred By Contac t Referred To Contact Cardiology Diagnoses Chest pain, unspecified chest pain type Procedures STRESS TEST TREADMILL (NO IMAGING) Sam Dubon MD [facility] [address] Referral ID Status Reason Start Date Expiration Date Visits Re quested Visits Authorized [id number] Closed 01/08/2015 07/07/2015 1 1 Encounter Details Date Type Department Care Team (Latest Contact Info) Description 01/17/2015 9:15 AM CERNER ANALYST - 01/17/2015 11:59 PM CERNER ANALYST Hospital Encounter [facility] Heart & Vascular Care [address] [place] [address] Sam Dubon MD [address] [place] [address] Discharge Disposition: Home or Self Care Social [...] No 12/06/2014 documented as of this encounter Medications at Time of Discharge Medication Sig Dispensed Refills Start Date End Date atorvastatin (LIPITOR) 20 MG tablet Take 20 mg by mouth at bedtime ALPRAZolam (XANAX) 0.5 MG tablet Take 0.5-1 mg by mouth 2 times daily as needed for Anxiety 11/24/2019 amLODIPine (NORVASC) 5 MG tablet Take 1 Tab by mouth once daily 30 Tab 0 12/06/2014 02/20/2015 aspirin EC (ECOTRIN) 81 MG tablet Two a day. 0 12/06/2014 11/24/2019 FLUoxetine (PROZAC) 20 MG capsule Take 20 mg by mouth once daily Along with 40 mg for total of 60 mg daily 11/24/2019 FLUoxetine (PROZAC) 40 MG capsule Take 40 mg by mouth once daily Along with 20 mg for total of 60 mg daily 11/24/2019 zolpidem (AMBIEN) 10 MG tablet Take 10 mg by mouth nightly as needed for Insomnia 1 hour before bedtime 11/24/2019 documented as of this encounter Progress Notes * Cammie Alcaraz RN - 01/26/2015 2:48 PM Eligio Note: Mr. Kulkarni was contacted to review treadmill results. Results reviewed in detail and all questions were answered. He was encouraged to keep follow up appointment on 02/20/[address] Dubon and to call with any questions or concerns. Cammie Alcaraz RN ER ANALYST * Sam Dubon MD - 01/25/2015 10:53 AM CSTQuick Note: Stress test is negative for ischemia Clinical FU ER ANALYST documented in this encounter Plan of Treatment Not on file documented as of this encounter Procedures Procedure Name Priority Date/Time Associated Diagnosis Comments STRESS TEST TREADMILL (NO IMAGING) Routine 01/17/2015 9:33 AM CERNER ANALYST Chest pain, unspecified chest pain type documented in this encounter Results * STRESS TEST TREADMILL (NO IMAGING) (01/17/2015 9:33 AM CERNER ANALYST) Stress Test Summary For full formatted report, [...] a normal stress study. Confirmed by MD Montanez Mark ([id number]) on 01/22/2015 7:36:09 AM Attending Physician: Shelby Solomon Referred By: ??Jerry KIM Cumberledge ? Overread By: Joe Montanez MD [facility] 01/17/2015 9:33 AM CERNER ANALYST 01/22/2015 7:36 AM CERNER ANALYST Sam Dubon MD CARDIAC SERVICES ORD ERABLES [facility] documented in this encounter Visit Diagnoses Diagnosis Chest pain, unspecified chest pain type documented in this encounter Care Teams Planishing Hammer Operator Relationship Specialty Start Date End Date Jerry Fatima MD PCP - General Family Medicine 12/05/14 03/22/19 documented as of this encounter
--- OUTSIDE RECORDS SUMMARY | 2024-03-02 03:18 | XMS_ITS | Encounter Summary ---
Author Organization [facility] Address [address] [facility] [place] [address] Care Team Providers Care Port Purser Name Role Phone Jerry Fatima MD Primary Care Provide r Reason for Visit * Reason Onset Date Comments Results 01/10/2015 Encounter Details Date Type Department Care Team (Late st Contact Info) Description 01/10/2015 Telephone [facility] Heart & Vascular Care [address] [place] [address] [address] [place] [address] Sam Dubon MD [address] [place] [address] [address] [place] [address] Results Social History Tobacco Use Types Packs/Day Years [...] No 12/06/2014 documented as of this encounter Miscellaneous Notes * Telephone Encounter - Leelee Ayers MA - 01/10/2015 10:58 AM CDT Sent over lab work to Dr. Fatima's office at [phone]. documented in this encounter Plan of Treatment Not on file documented as of this encounter Visit Diagnoses Not on filedocumented in this encounter Care Teams Port Purser Relationship Specialty Start Date End Date Jerry Fatima MD PCP - General Family Medicine 12/05/14 03/22/19 documented as of this encounter
--- OUTSIDE RECORDS SUMMARY | 2024-03-02 03:18 | XMS_ITS | Encounter Summary ---
Author Organization [facility] Address [address] [facility] [place] [address] Care Team Providers Care Chemical Handler Name Role Phone Jerry Fatima MD Primary Care Provide r Reason for Visit * Reason Comments Chest Pain * Auth/Cert Specialty Diagnoses / Procedures Referred By Contac t Referred To Contact Diagnoses Chest pain Referral ID Status Reason Start Date Expiration Date Visits Re quested Visits Authorized [id number] 1 1 Encounter Details Date Type Department Care Team (Late st Contact Info) Description 12/05/2014 2:02 PM CDT - 12/06/2014 10:29 AM CDT Emergency [facility] 2 TELEMETRY [address] [place], [place] [id number] Anamaria Pham MD [address] [place], [place] [id number] Gil Retana MD [address] [place] [address] Emergency Medicine Discharge Disposition: Home or Self [...] Sign Reading Time Taken Comments Blood Pressure 123/73 12/06/2014 7:12 AM CDT Pulse 53 12/06/2014 7:12 AM CDT Temperature 36.5 ??C (97.7 ??F) 12/06/2014 7:12 AM CD T Respiratory Rate 16 12/06/2014 7:12 AM CDT Oxygen Saturation 99% 12/06/2014 7:12 AM CDT Inhaled Oxygen Concentration - - Weight 147.9 kg (326 lb) 12/05/2014 9:03 PM CDT Height 190.5 cm (6' 3 ) 12/05/2014 2:06 PM CDT Body Mass Index 40.75 12/05/2014 2:06 PM CDT documented in this encounter Functional Status Functional [...] No 12/06/2014 documented as of this encounter Discharge Instructions * Discharge Instructions* Roro Sadler, RN - 12/06/2014 9:48 AM CDT Images from the original note were not included. Amlodipine (By mouth) Amlodipine ([id number]-te-perichardson) Treats high blood pressure and angina (chest pain). This medicine is a calcium channel marva. Brand Name(s):Hypertenipine-2.5, Norvasc There may be other brand names for this medicine. When This Medicine Should Not Be Used: This medicine is not right for everyone. Do not use it if you had an allergic reaction to amlodipine. How to Use This Medicine: Tablet, Dissolving Tablet ?? Take your medicine as directed. Your dose may need to be changed several times to find what works best for you. ?? Take this medicine at the same time each day. ?? Read and follow the patient instructions that come with this medicine. Talk to your doctor or pharmacist if you have any questions. ?? Missed dose: Take a dose as soon as you remember. If more than 12 hours has passed since your last dose, then skip the missed dose and take the next dose when you normally would. ?? Store the medicine in a closed container at room temperature, away from heat, moisture, and direct light. Drugs and Foods to Avoid: Ask your doctor or pharmacist before using any other medicine, including ucsg-yvf-xiexggt medicines, vitamins, and herbal products. ?? Some medicines can affect how amlodipine works. Tell your doctor if you are also using any of the following: ?? Diltiazem ?? Ritonavir ?? Simvastatin ?? Medicine to treat an infection Warnings While Using This Medicine: ?? Tell your doctor if you are or , or if you have liver disease, heart disease, COPD, or aortic stenosis. Tell your doctor if you have had a heart attack. ?? This medicine could lower your blood pressure too much, especially when you first use it or if you are dehydrated. Stand or sit up slowly if you feel lightheaded or dizzy. ?? Your doctor will check your progress and the effects of this medicine at regular visits. Keep all appointments. ?? Do not stop using this medicine without asking your doctor, even if you feel well. This medicinewill not cure high blood pressure, but it will help keep it in normal range. You may have to take blood pressure medicine for the rest of your life. ?? Keep all medicine out of the reach of children. Never share your medicine with anyone. Possible Side Effects While Using This Medicine: Call your doctor right away if you notice any of these side effects: ?? Allergic reaction: Itching or hives, swelling in your face or hands, swelling or tingling in your mouth or throat, chest tightness, trouble breathing ?? Chest pain ?? Lightheadedness, dizziness, or fainting ?? Swelling in your hands, ankles, or legs ?? Unusual tiredness If you notice other side effects that you think are caused by this medicine, tell your doctor. Call your doctor for medical advice about side effects. You may report side effects to FDA at 3-865-UQA-8531 ?? 2014 [employer]. Information is for End User's use only and may not be sold, redistributed or otherwise used for commercial purposes. The above information is an pharmacy aide only. It is not intended as medical advice for individual conditions or treatments. Talk to your doctor, nurse or pharmacist before following any medical regimen to see if it is safe and effective for you. Atorvastatin (By mouth) Atorvastatin (m-fwc-hy-STAT-in) Treats high cholesterol and triglyceride levels. Reduces the risk of angina, stroke, heart attack, or certain heart and blood vessel problems. This medicine is a statin. Brand Name(s):Lipitor There may be other brand names for this medicine. When This Medicine Should Not Be Used: This medicine is not right for everyone. Do not use it if you had an allergic reaction to atorvastatin, if you have active liver disease, or if you are or . How to Use This Medicine: Tablet ?? Take your medicine as directed. Your dose may need to be changed several times to find what works best for you. ?? Take this medicine at the same time each day. ?? Swallow the tablet whole. Do not break, crush, or chew it. ?? Missed dose: Take a dose as soon as you remember. If it is less than 12 hours until your next dose, skip the missed dose and take the next dose at the regular time. Do not take 2 doses of this medicine within 12 hours. ?? Read and follow the patient instructions that come with this medicine. Talk to your doctor or pharmacist if you have any questions. ?? Store the medicine in a closed container at room temperature, away from heat, moisture, and direct light. Drugs and Foods to Avoid: Ask your doctor or pharmacist before using any other medicine, including qhmy-zfx-jqmivxy medicines, vitamins, and herbal products. ?? Some medicines can affect how atorvastatin works. Tell your doctor if you also use controlpills, boceprevir, cimetidine, colchicine, cyclosporine, digoxin, niacin, rifampin, spironolactone,telaprevir, medicine to treat an infection, or medicine to treat HIV/AIDS. Warnings While Using This Medicine: ?? It is not safe to take this medicine during . It could harm an unborn baby. Tell your doctor right away if you become . ?? Tell your doctor if you have kidney disease, diabetes, muscle pain or weakness, thyroid problems, have recently had a stroke or TIA (transient ischemic attack), or have a history of liver disease.Tell your doctor if you drink grapefruit juice or drink alcohol regularly. ?? This medicine can cause muscle problems, which can lead to kidney problems. ?? Tell any doctor or dentist who treats you that you use this medicine. You may need to stop usingit if you have surgery, have an injury, or develop serious health problems. ?? Your doctor will do lab tests [...] or throat, chest tightness, trouble breathing ?? Blistering, peeling, red skin rash ?? Change in how much or how often you urinate ?? Dark urine or pale stools, nausea, vomiting, loss of appetite, stomach pain, yellow skin or eyes ?? Fever ?? Muscle pain, tenderness, or weakness ?? Unusual tiredness If you notice these less serious side effects, talk with your doctor: ?? Diarrhea ?? Joint pain If you notice other side effects that you think are caused by this medicine, tell your doctor. Call your doctor for medical advice about side effects. You may report side effects to FDA at 9-534-PZD-4431 ?? 2014 [employer]. Information is for End User's use only and may not be sold, redistributed or otherwise used for commercial purposes. The above information is an pharmacy aide only. It is not intended as medical advice for individual conditions or treatments. Talk to your doctor, nurse or pharmacist before following any medical regimen to see if it is safe and effective for you. Heart Healthy Diet WHAT YOU SHOULD KNOW: A heart healthy diet is an eating plan low in total fat, unhealthy fats, and sodium (salt). A hearthealthy diet helps decrease your risk for heart disease and stroke. Limit the amount of fat you eatto 25% to 35% of your total daily calories. Limit sodium to less than 2300 mg each day. AFTER YOU LEAVE: Healthy fats: Healthy fats can help improve cholesterol levels. The risk for heart disease is decreased when cholesterol levels are normal. Choose healthy fats, such as the following: ?? Unsaturated fat is found in foods such as soybean, canola, olive, and sunflower oils. It is alsofound in soft tub margarine that is made with liquid vegetable oil. ?? Bee Branch-3 fat is found in certain fish, such as salmon, tuna, and trout and in walnuts and flaxseed. Unhealthy fats: Unhealthy fats can cause unhealthy cholesterol levels in your blood and increase your risk of heart disease. Limit unhealthy fats, such as the following: ?? Cholesterol is found in animal foods, such as eggs and lobster, and in dairy products made from whole milk. Limit cholesterol to less than 300 milligrams (mg) each day. You may need to limit cholesterol to 200 mg each day if you have heart disease. ?? Saturated fat is found in fatty meats, such as nogueira and hamburger. It is also found in chicken or turkey skin, whole milk, and butter. Limit saturated fat to less than 7% of your total daily calories. ?? Trans fat is found in packaged foods, such as potato chips and cookies. It is also in hard margarine, some fried foods, and shortening. Avoid trans fats as much as possible. Heart healthy foods and drinks to include: Ask your dietitian or primary healthcare provider (PHP) how many servings to have from each of the following food groups: ?? Whole-grain breads, cereals, and pastas, brown rice, and low-fat, low-sodium crackers and chips ?? Fruits, vegetables, and juices with no added salt or are canned in light syrup or fruit juice ?? Low-fat dairy products , such as nonfat (skim) or 1% milk, cheese, yogurt, and cottage cheese ?? Meats and proteins , such as lean beef, skinless chicken, legumes, soy products, egg whites, andnuts Foods and drinks to limit or avoid: Ask your dietitian or PHP about these and other foods that are high in unhealthy fat and sodium: ?? Snack or packaged foods , such as frozen dinners, cookies, macaroni and cheese, and cereals withmore than 300 mg of sodium per serving ?? Canned or dry mixes for cakes, soups, sauces, or gravies ?? Vegetables that are powdered, such as instant potatoes, are packaged with sauces, or are canned (unless they are low sodium) ?? Whole or 2% milk, cream cheese, or sour cream, and cheeses with more than 140 mg of sodium per serving ?? High-fat cuts of beef (t-bone steaks, ribs), egg yolks, chicken or turkey with skin, and organ meats, such as liver ?? Cured or smoked meats , such as hot dogs and sausage ?? Fats and oils , such as butter, stick margarine, shortening, and cooking oils such as coconut orpalm oil ?? Other foods high in sodium , such as ketchup, barbecue sauce, salad dressing, pickles, olives, soy sauce, and miso Other diet guidelines to follow: ?? Eat more foods containing omega-3 fats. Eat fish high in omega-3 fats at least 2 times a week. ?? Limit alcohol. Too much alcohol can damage your heart and raise your blood pressure. Women should limit alcohol to 1 drink a day. Men should limit alcohol to 2 drinks a day. A drink of alcohol is 12 ounces of beer, 5 ounces of wine, or 1?? ounces of liquor. ?? Choose low-sodium foods. High-sodium foods can lead to high blood pressure. Add little or no salt to food you prepare. Use herbs and spices in place of salt. ?? Eat more fiber to help lower cholesterol levels. Eat at least 5 servings of fruits and vegetables each day. Eat 3 ounces of whole-grain foods each day. Legumes (beans) are also a good source of fiber. ?? Replace sweetened foods and drinks with those that have no or low sugar added. Ask your dietitian or caregiver which foods and liquids are best for you. Lifestyle guidelines: ?? Do not smoke. If you smoke, it is never too late to quit. Smoking can lead to problems with yourheart and lungs. Ask your caregiver for information if you need help quitting. ?? Exercise regularly to help you maintain a healthy weight and improve your blood pressure and cholesterol levels. Ask your caregiver about the best exercise plan for you. Do not start an exercise program without asking your caregiver. ?? 2014 [employer]. Information is for End User's use only and may not be sold, redistributed or otherwise used for commercial purposes. All illustrations and images included in CareNotes?? are the copyrighted property of [employer]. or [employer]. The above information is an pharmacy aide only. It is not intended as medical advice for individual conditions or treatments. Talk to your doctor, nurse or pharmacist before following any medical regimen to see if it is safe and effective for you. Chest Pain WHAT YOU SHOULD KNOW: Chest pain can be caused by a range of conditions, from not serious to life- threatening. It may be caused by a heart attack or a blood clot in your lungs. Sometimes chest pain or pressure is caused by poor blood flow to your heart (angina). Infection, inflammation, or a fracture in the bones or cartilage in your chest can cause pain or discomfort. Chest pain can also be a symptom of a digestive problem, such as acid reflux or a stomach ulcer. AFTER YOU LEAVE: Follow up with your primary healthcare provider (PHP) as directed: You may need more tests. You maybe referred to a specialist, such as a cotton gin yard supervisor or principal java developer. Write down your questions so you remember to ask them during your visits. Do not smoke: If you smoke, it is never too late to quit. Smoking increases your risk for a heart attack and other heart and lung conditions. Ask your PHP for information about how to stop smoking ifyou need help. Contact your PHP if: ?? You have questions or concerns about your condition or care. Seek care immediately or call 911 if: ?? You have any of the following signs of a heart attack: ?? Squeezing, pressure, or pain in your chest that lasts longer than 5 minutes or returns ?? Discomfort or pain in your back, neck, jaw, stomach, or arm ?? Trouble breathing ?? Nausea or vomiting ?? Lightheadedness or a sudden cold sweat, especially with trouble breathing. ?? You have chest discomfort that gets worse, even with medicine. ?? You cough or vomit blood. ?? Your bowel movements are black or bloody. ?? You cannot stop vomiting, or it hurts to swallow. ?? 2015 [employer]. Information is for End User's use only and may not be sold, redistributed or otherwise used for commercial purposes. All illustrations and images included in CareNotes?? are the copyrighted property of [employer]. or [employer]. The above information is an pharmacy aide only. It is not intended as medical advice for individual conditions or treatments. Talk to your doctor, nurse or pharmacist before following any medical regimen to see if it is safe and effective for you. documented in this encounter Medications at Time of Discharge Medication Sig Dispensed Refills Start Date End Date ALPRAZolam (XANAX) 0.5 MG tablet Take 0.5-1 mg by mouth 2 times daily as needed for Anxiety 11/24/2019 amLODIPine (NORVASC) 5 MG tablet Take 1 Tab by mouth once daily 30 Tab 0 12/06/2014 02/20/2015 aspirin EC (ECOTRIN) 81 MG tablet Two a day. 0 12/06/2014 11/24/2019 atorvastatin (LIPITOR) 20 MG tablet Take 1 Tab by mouth at bedtime for 30 days 30 Tab 0 12/06/2014 01/05/2015 FLUoxetine (PROZAC) 20 MG capsule Take 20 mg by mouth once daily Along with 40 mg for total of 60 mg daily 11/24/2019 FLUoxetine (PROZAC) 40 MG capsule Take 40 mg by mouth once daily Along with 20 mg for total of 60 mg daily 11/24/2019 ibuprofen (MOTRIN) 200 MG tablet Take 600 mg by mouth every 6 hours as needed for Pain 01/08/2015 zolpidem (AMBIEN) 10 MG tablet Take 10 mg by mouth nightly as needed for Insomnia 1 hour before bedtime 11/24/2019 documented as of this encounter Progress Notes * Jesse Singh RN - 12/06/2014 10:15 AM CDT Patient discharged home with present. No distress noted. Patient denies any chest pain. Discharge teaching completed per turnaround planner. * Hernandez Lucia RN - 12/06/2014 5:07 AM CDT Pt resting in bed. Continued to complain of dull chest pain this evening. PRN pain medication given. * Hernandez Lucia RN - 12/06/2014 1:49 AM CDT Problem: Hemodynamic Status/Cardiac Output Goal: Patient has stable vital signs and fluid balance Mp will have stable VS and fluid balance Outcome: Ongoing Mp VS remain stable. Problem: Pain/Discomfort Goal: Patient exhibits reduced pain/discomfort as evidenced by pain scores Mp will have decreased or absent pain. Outcome: Ongoing Mp continues to complain of dull chest pain. PRN Morphine given. documented in this encounter H&P Notes * Gil Retana MD - 12/06/2014 9:48 [place] [address] History and Physical Patient: MP KULKARNI Patient Class: OPO CSN: [id number] Bday/Age: 02 1965 49 Stn/Rm/Bed: [place] [address] 1 Sex/Race: M Unit #: [id number] Patient Adrs: [address] Prim Phys: Attend Phys: GIL RETANA M.D. [facility]: [place] [address] Admit Date: December 05, 2014 Disch To: Disch Date: December 06 2014 TWENTY-THREE HOUR SUMMARY The patient is a 49-year-old, white male, who came to the hospital. The patient had started with pain in the right shoulder area, subsequently the right scapular area. The pain was associated with movement of his right shoulder. Subsequently, patient felt pain all over his chest. The patient broke down into sweats. The patient came to the emergency room, admitted for rule out MS and for further treatment. PAST MEDICAL HISTORY: Significant for generalized anxiety disorder. SURGICAL HISTORY: Significant for appendectomy. FAMILY HISTORY: Father had 5 stents at early age. SOCIAL HISTORY: The patient never smoked. No excess alcohol. MEDICATIONS: At home, the patient is on: 1. Xanax. 2. Ambien 10 mg once a day. 3. Xanax 0.5 mg twice a day as needed. 4. Prozac 40 mg once a day along with 20 mg, total of 60 mg once a day. 5. Motrin p.r.n. ALLERGIES: NO KNOWN DRUG ALLERGIES. Other history is significant for being told at one time that blood pressure was borderline high. Onsubsequent office visits, blood pressure was normal according to patient. REVIEW OF SYSTEMS NEURO: Denies any headache. HEENT: Denies any complaints. CARDIOVASCULAR: No chest pain at this time. Feels fine. RESPIRATORY: No unusual shortness of breath. GI/: No abdominal pain. No nausea, no vomiting. MUSCULOSKELETAL: No unusual joint pain. Other 14-point review of systems unremarkable except for what is mentioned in dictation above. PHYSICAL EXAMINATION GENERAL: Alert and oriented white male. VITAL SIGNS: Blood pressure is 120/70, heart rate is 53, respiration rate is 16, oxygen saturation 99%, temperature 97. Blood pressure was 197/116 in the emergency room. GENERAL: In no acute distress. HEENT: EOMI, TIFFANIE, NCAT, MMM. NECK: Supple. No JVD. LUNGS: Clear to auscultation bilaterally. HEART: S1 and S2 normal. No S3. No unusual murmur. ABDOMEN: Soft. Positive bowel sounds. Nontender. EXTREMITIES: Do not reveal any significant edema. LABS: Troponins are all negative, 3 sets. White count is 10.7, hemoglobin 13.3, hematocrit 39, MCV 87, platelet count 231. Sugar is 88. Sodium is 138, potassium 3.9, chloride 103, bicarb 25, calcium 9.8, BUN 14, creatinine 0.8, ALT 16, AST 20, albumin is 3.8. CK is 80. Chest x-ray is unremarkable. EKG: Sinus bradycardia, first-degree AV block. RSR pattern in V1 suggesting right ventricular conduction delay. IMPRESSION: Chest pain. Myocardial infarction has been ruled out. HOSPITAL COURSE: Hospital course unremarkable. The patient is resting comfortably. Is in no distress. Has no chest pain. DISCHARGE DISPOSITION: I discussed with the patient in detail. He lives in [facility]. He has a primary physician, Dr. Jerry Fatima. RECOMMENDATION: For patient to have a stress test and echocardiogram. Along with that, at this timebeing on a statin. Blood pressure has been high. I discussed with him I will start him on amlodipine 5 mg once a day. We will hold off on beta marva because of his bradycardia. Will suggest [id number] mg 2 tablets a day. The patient is comfortable with the plan. I discussed with him about coming to the emergency room, call 911 if there is any chest pain. The patient will get a stress test and echocardiogram with his PMD. FINAL DISCHARGE DIAGNOSIS: 1. Chest pain, myocardial infarction ruled out. 2. Hypertension. 3. Anxiety and depression. 4. Family history of coronary artery disease. MEDICATIONS AT THE TIME OF DISCHARGE: Same as on admission along with: 1. Amlodipine 5 mg once a day. 2. Lipitor 20 mg once a day. 3. Aspirin 81 mg 2 tablets a day. Tara Ventura/CAESAR /[id number] cc: Jerry Fatima M.D. [address] [address] Gil Retana M.D. [address] [place] [address] Fax: [phone] GIL RETANA M.D. HISTORY AND PHYSICAL documented in this encounter ED Notes * Chantel Asher RN - 12/05/2014 7:21 PM CDT Patient resting quietly. Cont. Sinus Aj on monitor. No distress noted. * Mariel Lomeli RN - 12/05/2014 6:00 PM CDT Patient fed cardiac tray for dinner. * Mariel Lomeli RN - 12/05/2014 2:40 PM CDT Blood pressure down to 145/70, Dr. Pham aware. Advises not to give another 0.4 Nitro at this time. Patient states he still has tightness and pain 6/10 * Mariel Lomeli RN - 12/05/2014 2:[address] Pham at bedside * Mariel Lomeli RN - 12/05/2014 2:13 PM CDT Patient was out golfing this morning and started having dull aching chest pain. He became light-headed and eventually SOB. Pain is a 7/10 on pain scale. When he tries to take a deep breath it gets sharper. * Anamaria Pham MD - 12/05/2014 2:13 PM CDT Provider contact with the patient: 12/05/2014 14:13 Mp Kulkarni [id number] [facility] EMERGENCY DEPARTMENT History Chief Complaint Patient presents with ??? Chest Pain Chest Pain The history is provided by the patient. This is a new problem. The current episode started 1 to 2 hours ago. The problem occurs constant. The pain is associated with movement and exertion. The pain is present in the substernal. The pain is at a severity of 3/10. The pain is mild. The quality of thepain is described as dull. The pain radiates to the upper back. The symptoms are aggravated by deepbreathing and exertion. diaphoresis, dizziness and shortness of breathno near-syncope, no palpitations and no nauseaHe has tried nothing for the symptoms. Risk factors for coronary artery disease include family history, hyperlipidemia and hypertension. Risk factors for a thoracic aortic dissection i nclude hypertension. The past medical history includes HTN and hypercholesterolemia. Past Medical History Diagnosis Date ??? Generalized anxiety disorder ??? Depressive disorder, not elsewhere classified Past Surgical History Procedure Laterality Date ??? Appendectomy No family history on file. History Social History ??? Marital Status: Spouse Name: N/A Number of Children: N/A ??? Years of Education: N/A Occupational History ??? Not on file. Social History Main Topics ??? Smoking status: Never Smoker ??? Smokeless tobacco: Not on file ??? Alcohol Use: No ??? Drug Use: No ??? Sexual Activity: Not on file Other Topics Concern ??? Not on file Social History Narrative ??? No narrative on file Review of Systems Review of Systems Constitutional: Positive for diaphoresis. HENT: Negative. Eyes: Negative. Respiratory: Positive for shortness of breath. Cardiovascular: Positive for chest pain. Negative for palpitations and near-syncope. Gastrointestinal: Negative. Negative for nausea. Genitourinary: Negative. Musculoskeletal: Negative. Skin: Negative. Neurological: Positive for dizziness. Endo/Heme/Allergies: Negative. Psychiatric/Behavioral: Negative. All other systems reviewed and are negative. Physical Exam BP 197/99 mmHg Pulse 64 Temp(Src) 97.9 ??F Resp 18 Ht 1.905 m (6' 3 ) Wt 149.687 kg (330 lb) BMI 41.25 kg/m2 SpO2 98% Physical Exam Constitutional: He is oriented to person, place, and time. He appears well- developed and well-nourished. No distress. HENT: Head: Normocephalic and atraumatic. Eyes: EOM are normal. Pupils are equal, round, and reactive to light. Neck: Normal range of motion. Neck supple. Cardiovascular: Normal rate and regular rhythm. Exam reveals no friction rub. No murmur heard. Pulmonary/Chest: Effort normal and breath sounds normal. He has no wheezes. Abdominal: Soft. Bowel sounds are normal. Musculoskeletal: Normal range of motion. He exhibits no edema. Neurological: He is alert and oriented to person, place, and time. Skin: Skin is warm and dry. Psychiatric: He has a normal mood and affect. Nursing note and vitals reviewed. Medications Current Outpatient Prescriptions Medication Sig Dispense Refill ??? ALPRAZolam (XANAX) 0.5 MG tablet Take 0.5-1 mg by mouth 2 times daily as needed for Anxiety ??? zolpidem (AMBIEN) 10 MG tablet Take 10 mg by mouth nightly as needed for Insomnia 1 hour beforebedtime ??? FLUoxetine (PROZAC) 40 MG capsule Take 40 mg by mouth once daily Along with 20 mg for total of 60 mg daily ??? FLUoxetine (PROZAC) 20 MG capsule Take 20 mg by mouth once daily Along with 40 mg for total of 60 mg daily ??? ibuprofen (MOTRIN) 200 MG tablet Take 600 mg by mouth every 6 hours as needed for Pain Procedures Procedures ECG Interpretation ECG Interpretation Lab/SPO2 Interpretation Hospital Encounter on 12/05/14 TROPONIN I Result Value Ref Range Troponin I <0.012 <=0.049 ng/mL TROPONIN I Result Value Ref Range Troponin I <0.012 <=0.049 ng/mL CBC W AUTO DIFFERENTIAL Result Value Ref Range WBC 10.7 (H) 4.0-10.0 x10^9/L RBC 4.55 4.40-6.10 x10^12/L Hgb 13.3 (L) 13.7-17.5 gm/dL HCT 39.7 (L) 40.1-51.0 % MCV 87.3 78.0-100.0 fl MCH 29.2 25.6-34.0 pg MCHC 33.5 32.3-36.5 gm/dL RDW 13.7 11.6-14.4 % MPV 11.8 9.4-12.[address] 231 163-369 x10^9/L Neutro 68.8 40.0-75.0 % Lymph 17.5 (L) 19.3-53.1 % Wood 7.9 4.7-12.5 % Eos 4.9 0.7-7.0 % Baso 0.4 0.1-1.2 % Immature Grans 0.5 0-0.5 % Neutro Abs 7.38 (H) 1.56-6.13 x10^9/L Lymph Abs 1.87 1.18-3.74 x10^9/L Wood Abs 0.85 0.24-0.86 x10^9/L Eosin Abs 0.52 0.04-0.54 x10^9/L Baso Abs 0.04 0.01-0.08 x10^9/L Immature Grans (Abs) 0.05 (H) 0-0.03 x10^9/L NRBC Auto 0 <=0 /100 WBC NRBC ABS Blood Auto 0.00 <=0 x10^9/L COMPREHENSIVE METABOLIC PANEL Result Value Ref Range Glucose 88 70-125 mg/dL Sodium 138 136-145 mmol/L Potassium 3.9 3.4-4.5 mmol/L Chloride 103 98-107 mmol/L CO2 25 22-29 mmol/L Calcium 9.8 8.4-10.2 mg/dL Anion Gap 14 10-20 mmol/L BUN 14.1 8.4-25.7 mg/dL Creatinine 0.85 0.72-1.25 mg/dL eGFR MDRD >60 >60 mL/min/1.73m2 eGFR MDRD AFR AMR >60 >60 mL/min/1.73m2 Alk Phos 95 40-150 U/L ALT/SGPT 16 5-55 U/L AST/SGOT 20 5-34 U/L Protein Total 7.6 6.4-8.3 gm/dL Albumin 3.8 3.5-5.0 gm/dL Globulin Total 3.8 2.6-4.0 gm/dL Alb/Glob Ratio 1.0 0.9-1.6 Bili Total 0.5 0.2-1.2 mg/dL CK W CKMB REFLEX Result Value Ref Range CK 80 30-200 U/L XR CHEST 1VW PORTABLE Final Result Normal chest. Preliminary report printed to the Emergency Room on 12/05/2014 at 1512 hours. Progress Notes ED Course Medical Decision Making I have reviewed the: Nursing Notes and Vitals. I have interpreted the following results: Labs, 12 Lead EKG, X-Ray and Oxygen Saturation. Orders Placed This Encounter ??? XR CHEST 1VW PORTABLE ??? TROPONIN I ??? TROPONIN I ??? CBC W AUTO DIFFERENTIAL ??? COMPREHENSIVE METABOLIC PANEL ??? CK W CKMB REFLEX ??? OXYGEN ??? EKG 12-LEAD ??? 0.9% NaCl injection 2-10 mL ??? aspirin (ASPIRIN) chew tablet 324 mg ??? nitroGLYCERIN (NITROSTAT) tablet 0.4 mg ??? acetaminophen (TYLENOL) tablet 650 mg ??? pantoprazole (PROTONIX) injection 40 mg ??? GI Cocktail Clinical Impression Final diagnoses: Acute chest pain Chest pain documented in this encounter Plan of Treatment Not on file documented as of this encounter Procedures Procedure Name Priority Date/Time Associated Diagnosis Comments CARDIAC RHYTHM STRIP ORDER 12/07/2014 12:04 PM CDT TROPONIN I Timed 12/05/2014 7:55 PM CDT TROPONIN I Timed 12/05/2014 4:46 PM CDT XR CHEST 1VW PORTABLE STAT 12/05/2014 2:29 PM CDT Acute chest pain CK W CKMB REFLEX STAT 12/05/2014 2:20 PM CDT TROPONIN I STAT 12/05/2014 2:16 PM CDT CBC W AUTO DIFFERENTIAL STAT 12/05/2014 2:16 PM CDT COMPREHENSIVE METABOLIC PANEL STAT 12/05/2014 2:16 PM CDT EKG 12-LEAD STAT 12/05/2014 2:07 PM CDT Acute chest pain documented in this encounter Results * CARDIAC RHYTHM STRIP ORDER (12/07/2014 12:04 PM CDT) Narrative 12/07/2014 12:04 PM CDT Ordered by an unspecified provider. Scanned Document CARDIAC SERVICES ORD ERABLES * TROPONIN I (12/05/2014 7:55 PM CDT) Troponin I <0.012 <=0.049 ng/mL 12/05/2014 8:23 PM CDT [facility] Blood BLOOD SPECIMEN / Unknown Lab Venipuncture / Unknown 12/05/2014 7:55 PM CDT 12/05/2014 7:58 PM CDT Narrative [facility] - 12/05/2014 8:23 PM CDT Note: Diagnosis of myocardial infarction requires symptoms of ischemia or EKG changes of ischemia and TNI >99th percentile of normal with <10% CV (0.05 ng/mL) Troponin should be drawn on initial assessment and 3-6 hours later as clinically indicated. Any condition resulting in myocardial cell damage can increase cardiac troponin levels. In addition to myocardial infarction, these include but are not limited to CHF, arrhythmia, myocarditis, and non-cardiac related causes such as pulmonary embolism, renal failure and sepsis. Anamaria Pham MD LAB - CHEMISTRY ORDERABLES Performing Organization Address [facility] Co de Phone Number [facility] [address] * TROPONIN I (12/05/2014 4:46 PM CDT) [facility] Troponin I <0.012 <=0.049 ng/mL 12/05/2014 5:19 PM CDT [facility] Blood BLOOD SPECIMEN / Unknown Lab Venipuncture / Unknown 12/05/2014 4:46 PM CDT 12/05/2014 4:49 PM CDT Narrative [facility] - 12/05/2014 5:19 PM CDT Note: Diagnosis of myocardial infarction requires symptoms of ischemia or EKG changes of ischemia and TNI >99th percentile of normal with <10% CV (0.05 ng/mL) Troponin should be drawn on initial assessment and 3-6 hours later as clinically indicated. Any condition resulting in myocardial cell damage can increase cardiac troponin levels. In addition to myocardial infarction, these include but are not limited to CHF, arrhythmia, myocarditis, and non-cardiac related causes such as pulmonary embolism, renal failure and sepsis. Anamaria Pham MD LAB - CHEMISTRY ORDERABLES Performing Organization Address [facility] Co de Phone Number [facility] [address] * XR CHEST 1VW PORTABLE (12/05/2014 2:29 [...] W CKMB REFLEX (12/05/2014 2:20 PM CDT) [facility] CK 80 30 - 200 U/L 12/05/2014 2:46 PM CDT [facility] Comment: CK-MB Not Performed. Blood BLOOD SPECIMEN / Unknown Lab Venipuncture / Unknown 12/05/2014 2:20 PM CDT 12/05/2014 2:20 PM CDT Anamraia Pham MD LAB - CHEMISTRY ORDERABLES Performing Organization Address [facility] Co de Phone Number [facility] [address] * COMPREHENSIVE METABOLIC PANEL (12/05/2014 2:16 PM CDT) [facility] Glucose 88 70 - 125 mg/dL 12/05/2014 2:46 PM CDT [facility] Sodium 138 136 - 145 mmol/L 12/05/2014 2:46 PM CDT [facility] Potassium 3.9 3.4 - 4.5 mmol/L 12/05/2014 2:46 PM CDT [facility] Chloride 103 98 - 107 mmol/L 12/05/2014 2:46 PM CDT [facility] CO2 25 22 - 29 mmol/L 12/05/2014 2:46 PM CDT [facility] Calcium 9.8 8.4 - 10.2 mg/dL 12/05/2014 2:46 PM CDT [facility] Anion Gap 14 10 - 20 mmol/L 12/05/2014 2:46 PM CDT [facility] BUN 14.1 8.4 - 25.7 mg/dL 12/05/2014 2:46 PM CDT [facility] Creatinine 0.85 0.72 - 1.25 mg/dL 12/05/2014 2:46 PM CDT [facility] eGFR by MDRD >60 >60 mL/min/1.7 3m2 12/05/2014 2:46 PM CDT [facility] eGFR by MDRD >60 >60 mL/min/1.7 3m2 12/05/2014 2:46 PM CDT [facility] Alkaline Phosphatase 95 40 - 150 U/L 12/05/2014 2:46 PM CDT [facility] ALT 16 5 - 55 U/L 12/05/2014 2:46 PM CDT [facility] AST 20 5 - 34 U/L 12/05/2014 2:46 PM CDT [facility] Protein Total 7.6 6.4 - 8.3 gm/dL 12/05/2014 2:46 PM CDT [facility] Albumin 3.8 3.5 - 5.0 gm/dL 12/05/2014 2:46 PM CDT [facility] Globulin Total 3.8 2.6 - 4.0 gm/dL 12/05/2014 2:46 PM CDT [facility] Albumin/Globulin Ratio 1.0 0.9 - 1.6 12/05/2014 2:46 PM CDT [facility] Bilirubin Total 0.5 0.2 - 1.2 mg/dL 12/05/2014 2:46 PM CDT [facility] Blood BLOOD SPECIMEN / Unknown Lab Venipuncture / Unknown 12/05/2014 2:16 PM CDT 12/05/2014 2:19 PM CDT Anamaria Pham MD LAB - CHEMISTRY ORDERABLES Performing Organization Address [facility] Co de Phone Number [facility] [address] * (ABNORMAL) CBC W AUTO DIFFERENTIAL (12/05/2014 2:16 PM CDT) WBC 10.7(H) 4.0 - 10.0 x10^9/L 12/05/2014 2:23 PM [facility] RBC 4.55 4.40 - 6.10 x10^12/L 12/05/2014 2: PM [facility] Hemoglobin 13.3(L) 13.7 - 17.5 gm/dL 12/05/2014 2: PM [facility] Hematocrit 39.7(L) 40.1 - 51.0 % 12/05/2014 2: PM [facility] MCV 87.3 78.0 - 100.0 fl 12/05/2014 2: PM [facility] MCH 29.2 25.6 - 34.0 pg 12/05/2014 2: PM [facility] MCHC 33.5 32.3 - 36.5 gm/dL 12/05/2014 2: PM [facility] RDW 13.7 11.6 - 14.4 % 12/05/2014 2: PM [facility] MPV 11.8 9.4 - 12.4 fl 12/05/2014 2: PM [facility] Platelet Count 231 163 - 369 x10^9/L 12/05/2014 2: PM [facility] Neutrophils % 68.8 40.0 - 75.0 % 12/05/2014 2: PM [facility] Lymphocytes % 17.5(L) 19.3 - 53.1 % 12/05/2014 2: PM [facility] Monocytes % 7.9 4.7 - 12.5 % 12/05/2014 2: PM [facility] Eosinophils % 4.9 0.7 - 7.0 % 12/05/2014 2: PM [facility] Basophils % 0.4 0.1 - 1.2 % 12/05/2014 2: PM [facility] Immature Granulocytes 0.5 0 - 0.5 % 12/05/2014 2: PM [facility] Neutrophil Absolute 7.38(H) 1.56 - 6.13 x10^9/L 12/05/2014 2: PM [facility] Lymphocytes Absolute 1.87 1.18 - 3.74 x10^9/L 12/05/2014 2: PM [facility] Monocytes Absolute 0.85 0.24 - 0.86 x10^9/L 12/05/2014 2:23 PM CDT [facility] Eosinophils Absolute 0.52 0.04 - 0.54 x10^9/L 12/05/2014 2:23 PM CDT [facility] Basophils Absolute 0.04 0.01 - 0.08 x10^9/L 12/05/2014 2:23 PM CDT [facility] Immature Granulocytes Absolute 0.05(H) 0 - 0.03 x10^9/L 12/05/2014 2:23 PM CDT [facility] nRBC Auto 0 <=0 /100 WBC 12/05/2014 2:23 PM CDT [facility] nRBC Absolute 0.00 <=0 x10^9/L 12/05/2014 2:23 PM CDT [facility] Blood BLOOD SPECIMEN / Unknown Lab Venipuncture / Unknown 12/05/2014 2:16 PM CDT 12/05/2014 2:19 PM CDT Anamaria Pham MD LAB - HEMATOLOGY ORDERABLES Performing Organization Address [facility] de Phone Number [facility] [address] [place] [address] * TROPONIN I (12/05/2014 2:16 PM CDT) [facility] Troponin I <0.012 <=0.049 ng/mL 12/05/2014 2:54 PM CDT [facility] Blood BLOOD SPECIMEN / Unknown Lab Venipuncture / Unknown 12/05/2014 2:16 PM CDT 12/05/2014 2:19 PM CDT Narrative [facility] - 12/05/2014 2:54 PM CDT Note: Diagnosis of myocardial infarction requires symptoms of ischemia or EKG changes of ischemia and TNI >99th percentile of normal with <10% CV (0.05 ng/mL) Troponin should be drawn on initial assessment and 3-6 hours later as clinically indicated. Any condition resulting in myocardial cell damage can increase cardiac troponin levels. In addition to myocardial infarction, these include but are not limited to CHF, arrhythmia, myocarditis, and non-cardiac related causes such as pulmonary embolism, renal failure and sepsis. Anamaria Pham MD LAB - CHEMISTRY ORDERABLES Performing Organization Address [facility] de Phone Number [facility] [address] [place], [place] [id number] [place] [address] * EKG 12-LEAD (12/05/2014 2:07 PM CDT) Ventricular Rate 52 BPM [facility] Atrial Rate 52 BPM [facility] P-R Interval 218 ms [facility] QRS Duration ms 84 ms [facility] Q-T Interval ms 428 ms [facility] QTC Calculation (Bezet) 398 ms [facility] Calculated P [place] 11 degrees [facility] Calculated R [place] -8 degrees [facility] Calculated T [place] 17 degrees [facility] Interpretation EKG SINUS BRADYCARDIA WITH 1ST DEGREE A-V BLOCK RSR' OR QR PATTERN IN V1 SUGGESTS RIGHT VENTRICULAR CONDUCTION DELAY BORDERLINE ECG NO PREVIOUS ECGS AVAILABLE Confirmed by GLENN KIM, [facility] ([id number]), advertising editor EROS TORRES ([id number]) on 12/06/2014 7:45:59 AM [facility] 12/05/2014 2:07 PM CDT 12/06/2014 7:45 AM CDT Anamaria Pham MD ECG ORDERABLES [facility] documented in this encounter Visit Diagnoses Diagnosis Acute chest pain Chest pain, unspecified Chest pain documented in this encounter Administered Medications Inactive Administered Medications - up to 3 most recent administrations Medication Order MAR Action Action Date Dose Rate Site aspirin (ASPIRIN) chew tablet 324 mg 324 mg, Oral, NOW, 1 dose, On Thu12/05/14 at 1415, Administer if not previously done by patient or EMS $ Given 12/05/2014 2:25 PM CDT 324 mg FLUoxetine (PROzac) capsule 60 mg 60 mg, Oral, DAILY, First dose on Thu12/06/14 at 0900, Until Discontinued $ Given 12/06/2014 8:33 AM CDT 60 mg GI Cocktail 50 mL, Oral, ONCE, 1 dose, On Thu12/05/14 at 1645 $ Given 12/05/2014 4:45 PM CDT 50 mL morphine injection 2 mg 2 mg, Intravenous, EVERY 4 HOURS PRN, Severe Pain, Starting on Thu12/05/14 at 2117, Until Thu12/06/14 at 1129 $ Given 12/05/2014 10:46 PM CDT 2 mg nitroGLYCERIN (NITROSTAT) tablet 0.4 mg 0.4 mg, Sublingual, EVERY 5 MIN PRN, Angina, Chest pain, Starting on Thu12/05/14 at 1358, Until Thu12/06/14 at 1129, Administer until chest pain relieved or systolic bp less than 90. Notify physician after 4 doses if chest pain not relieved. $ Given 12/05/2014 2:25 PM CDT 0.4 mg pantoprazole (PROTONIX) injection 40 mg 40 mg, Intravenous, ONCE, 1 dose, On Thu12/05/14 at 1645, Reconstitute vial with 10 mL of 0.9% NaCL to a final concentration 4 mg/mL. Adminster prescribed dose over at least 2min. $ Given 12/05/2014 4:46 PM CDT 40 mg pantoprazole EC (PROTONIX) tablet 40 mg 40 mg, Oral, DAILY, First dose on Thu12/06/14 at 0900, Until Discontinued, Do not crush, chew, or cut in half. $ Given 12/06/2014 8:33 AM CDT 40 mg documented in this encounter Active and Recently Administered Medications Times are shown in CDT. Scheduled Medication Order 12/04/2014 12/05/2014 12/06/2014 aspirin (ASPIRIN) chew tablet 324 mg (COMPLETED) 324 mg, Oral, NOW, 1 dose, On Thu12/05/14 at 1415, Administer if not previously done by patient or EMS 1425 ($ Given - Provider: Mariel Lomeli RN) FLUoxetine (PROzac) capsule 60 mg (CANCELED) 60 mg, Oral, DAILY, First dose on Thu12/06/14 at 0900, Until Discontinued 0833 ($ Given - Provider: Jesse Singh RN) GI Cocktail (COMPLETED) 50 mL, Oral, ONCE, 1 dose, On Thu12/05/14 at 1645 1645 ($ Given - Provider: Mariel Lomeli RN) pantoprazole (PROTONIX) injection 40 mg (COMPLETED) 40 mg, Intravenous, ONCE, 1 dose, On Thu12/05/14 at 1645, Reconstitute vial with 10 mL of 0.9% NaCL to a final concentration 4 mg/mL. Adminster prescribed dose over at least 2min. 1646 ($ Given - Provider: Mariel Lomeli RN) pantoprazole EC (PROTONIX) tablet 40 mg (CANCELED) 40 mg, Oral, DAILY, First dose on Thu12/06/14 at 0900, Until Discontinued, Do not crush, chew, or cut in half. 0802 ($ Given - Provider: Jesse Singh RN) PRN Medication Order 12/04/2014 12/05/2014 12/06/2014 morphine injection 2 mg (CANCELED) 2 mg, Intravenous, EVERY 4 HOURS PRN, Severe Pain, Starting on Thu12/05/14 at 2117, Until Thu12/06/14 at 1129 2246 ($ Given - Provider: Erickson Lucia RN) nitroGLYCERIN (NITROSTAT) tablet 0.4 mg (CANCELED) 0.4 mg, Sublingual, EVERY 5 MIN PRN, Angina, Chest pain, Starting on Thu12/05/14 at 1358, Until Thu12/06/14 at 1129, Administer until chest pain relieved or systolic bp less than 90. Notify physician after 4 doses if chest pain not relieved. 1420 ($ Given - Provider: Mariel Lomeli RN) documented in this encounter Care Teams Chemical Handler Relationship Specialty Start Date End Date Jerry Fatima MD PCP - General Family Medicine 12/05/14 03/22/19 documented as of this encounter
--- OUTSIDE RECORDS SUMMARY | 2024-03-02 03:18 | XMS_ITS | Encounter Summary ---
Author Organization [facility] Address [address] [place] [address] Care Team Providers Care Engagement Specialist Name Role Phone Jerry Fatima MD Primary Care Provide r Reason for Visit * Reason Onset Date Comments Opened In Error 01/15/2015 Encounter Details Date Type Department Care Team (Late st Contact Info) Description 01/15/[address] [facility] [address] [place] [address] [address] [place] [address] Sam Dubon MD [address] [place] [address] [address] [place], [place] [id number] Opened In Error Social History Tobacco Use Types Packs/Day Years [...] No 12/06/2014 documented as of this encounter Plan of Treatment Not on file documented as of this encounter Visit Diagnoses Not on filedocumented in this encounter Care Teams Engagement Specialist Relationship Specialty Start Date End Date Jerry Fatima MD PCP - General Family Medicine 12/05/14 03/22/19 documented as of this encounter
--- OUTSIDE RECORDS SUMMARY | 2024-03-02 03:18 | XMS_ITS | Encounter Summary ---
Author Organization [facility] Address [address] [place] [place] [address] Care Team Providers Care Brewing Director Name Role Phone Jerry Fatima MD Primary Care Provide r Reason for Referral * Procedure - Closed Specialty Diagnoses / Procedures Referred By Contac t Referred To Contact Cardiology Diagnoses Chest pain, unspecified chest pain type Procedures EKG 12-LEAD Sam Dubon MD [address] [place] [id number] Referral ID Status Reason Start Date Expiration Date Visits Re quested Visits Authorized [id number] Closed 01/11/2015 07/10/2015 1 1 * Cardiac - Closed Specialty Diagnoses / Procedures Referred By Contac t Referred To Contact Cardiology Diagnoses Chest pain, unspecified chest pain type Procedures STRESS TEST TREADMILL (NO IMAGING) Sam Dubon MD [address] [place], [place] [address]EVUE Rafi [facility] [address] [place] [address] Referral ID Status Reason Start Date Expiration Date Visits Re quested Visits Authorized [id number] Closed 01/08/2015 07/07/2015 1 1 Reason for Visit * Reason Comments Establish Care * Cardiac (Routine) - Closed Specialty Diagnoses / Procedures Referred By Contact Referred To Contact Cardiovascular Disease / Cardiology Diagnoses Other chest pain Procedures [place] OFFICE CONSULTATION,LEVEL I LOCATED WITHIN [facility] OFFICE/OUTPT VISIT,MELISSA PETERSEN III, Jon Michael, MD [address] [phone] Sam Dubon MD [address] [place] [address] Referral ID Status Reason Start Date Expiration Date Visits Re quested Visits Authorized [id number] Closed 12/19/2014 12/19/2015 12 12 Encounter Details Date Type Department Care Team (Late st Contact Info) Description 01/08/2015 9:45 AM CDT Office Visit [facility] [address] [place] [address] [address] [place] [address] Sam Dubon MD [address] [place] [address] Chest pain, unspecified chest pain type (Primary Dx) Social History Tobacco Use Types [...] Sign Reading Time Taken Comments Blood Pressure 150/90 01/08/2015 9:50 AM CDT Pulse 68 01/08/2015 9:50 AM CDT Temperature - - Respiratory Rate - - Oxygen Saturation - - Inhaled Oxygen Concentration - - Weight 154.3 kg (340 lb 4 oz) 01/08/2015 9:50 AM CDT Height 190.5 cm (6' 3 ) 01/08/2015 9:50 AM CDT Body Mass Index 42.53 01/08/2015 9:50 AM CDT documented in this encounter Functional Status [...] as of this encounter Progress Notes * Zoila Tolbert MA - 01/15/2015 4:47 PM CSTQuick Note: S/w patient and informed him his blood work was normal. Patient verbalized his understanding. Zoila Tolbert MA 01/15/2015 4:47 PM CAL APPOINTMENT SCHEDULER * Cammie Alcaraz RN - 01/15/2015 3:23 PM CSTQuick Note: Second call placed to patient to review recent blood work. LMOM. Awaiting return call. Cammie Alacraz RN CAL APPOINTMENT SCHEDULER * Cammie Alcaraz RN - 01/11/2015 3:39 PM CDTQuick Note: Mr. Kulkarni was contacted to review blood work results. LMOM. Awaiting return call. Cammie Alcaraz RN * Sam Dubon MD - 01/09/2015 11:07 PM CDTQuick Note: Trop-I and ddimer tests are normal * Sam Dubon MD - 01/08/2015 10:11 AM CDT Kwaku Kulkarni : 1965 Age: 49 y.o. [facility] - Cardiology Consult Date of Consult: 01/08/2015 Patient's Primary Care Physician: Jerry Fatima MD Physician Requesting Consult: Kushal Indication for Consultation: Chest pain History of Present Illness: Mr. Kulkarni is a 49-year-old pleasant white male who was recently seen in the emergency room at [facility]. He was kept overnight for observation. His troponins were negative. He was discharged home on Norvasc, Lipitor and aspirin. This patient weighs about 350 lb. He lost his joblast year and was in depression. Currently he is on anti depressants. 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 He has increased fatigue and weakness over the last few weeks. He developed right-sided chest pain while playing golf. 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 The pain continued for many hr and finally he decided to come to the emergency room to get evaluated. His electrocardiogram was nondiagnostic for ischemia. He continues to have almost constant chest discomfort over the lower anterior right side of chest. This pain is rest per face sick and mild in nature. He denies any fever or cough. He also has mild epigastric discomfort. He was using over the counter ibuprofen for pain. He has not started taking Lipitor or Norvasc since his discharge from the hospital. He was seen by a his PCP and his blood pressure was normal a few days ago. His cholesterol is 206, HDL 55, LDL 124. He denies any history of GI bleed, stroke, seizure, congestive heart failure or dysrhythmia. No Known Allergies Medications: Current Outpatient Prescriptions Medication Sig Dispense Refill ??? atorvastatin (LIPITOR) 20 MG tablet Take 20 mg by mouth at bedtime ??? amLODIPine (NORVASC) 5 MG tablet Take 1 Tab by mouth once daily 30 Tab 0 ??? aspirin EC (ECOTRIN) 81 MG tablet [...] every 6 hours as needed for Pain No current facility-administered medications for this visit. Past Medical History: Past Medical History Diagnosis Date ??? Generalized anxiety disorder ??? Depressive disorder, not elsewhere classified Past Surgical History Procedure Laterality Date ??? Appendectomy Family History: Father had CAD and PCI in his 60's. Alive at 79 years. Social History: History Social History ??? Marital Status: Spouse Name: N/A Number of Children: N/A ??? Years of Education: N/A Occupational History ??? Not on file. Social History Main Topics ??? Smoking status: Never Smoker ??? Smokeless tobacco: Not on file ??? Alcohol Use: No ??? Drug Use: No ??? Sexual Activity: Not on file Other Topics Concern ??? Not on file Social History Narrative Review of Systems: A comprehensive review of systems was negative except as described in HPI. Physical exam: Vitals: 01/08/15 0950 BP: 150/90 Pulse: 68 Weight: 154.336 kg (340 lb 4 oz) Body mass index is 42.53 kg/(m^2). General appearance: alert, cooperative, no distress [...] 3 Musculoskeletal system: No significant abnormalities noted. Data: Recent Labs Component Name 12/05/14 1416 WBC 10.7* HGB 13.3* HCT 39.7* PLTCOUNT 231 Recent Labs Component Name 12/05/14 1416 SODIUM 138 POTASSIUM 3.9 BUN 14.1 CREATININE 0.85 GLUCOSE 88 No results for input(s): BNP in the last 8640 hours. Recent Labs Component Name 12/05/14 1955 12/05/14 1646 12/05/14 1416 TROPONIN <0.012 <0.012 <0.012 EKG: Normal sinus rhythm. Rate 64 beats per min, normal axis, rsr' is suggestive of RV conduction delay, nonspecific T-wave abnormalities and poor R-wave progression.. Impression: 1. Atypical chest pain - respirophasic, more at the R lower chest area. Also has mild epigastric pain. EKG is nondiagnostic for NC/ischemia 2. Abnormal EKG 3. Morbid obesity 4. Hypercholesterolemia Plan: 1.Discontinue NSAIDs. Add OTC zantac or prilosec daily 2. Will plan an exercise treadmill stress test 3. Obtain troponin I, d-dimer and LFT. Can not exclude the possibility of GB pathology, small PE orpleurisy. No fever or cough. 4.Clincal picture is suspicious for LEONOR. Recommended to discuss w PCP regarding a sleep study 5.DC soda beverages. Needs weight reduction. 6. Reassess lipid profile in 3 months, after dietary changes 7. Follow BP Thank you for allowing me to participate in the care of your patient. Do not hesitate to call with question or concerns. Sam Dubon MD, FAC, [facility] personal property assessor [facility] Heart institute Office documented in this encounter Miscellaneous Notes * Addendum Note - Cristel Sharma - 01/11/2015 9:12 AM CDTAddended by: CRISTEL SHARMA on: 01/11/2015 09:12 AM Modules accepted: Orders documented in this encounter Plan of Treatment Not on file documented as of this encounter Procedures Procedure Name Priority Date/Time Associated Diagnosis Comments D-DIMER Routine 01/08/2015 11:53 AM CDT Chest pain, unspecified chest pain type TROPONIN I Routine 01/08/2015 11:52 AM CDT Chest pain, unspecified chest pain type HEPATIC FUNCTION PANEL Routine 01/08/2015 11:52 AM CDT Chest pain, unspecified chest pain type EKG 12-LEAD Routine 01/08/2015 Chest pain, unspecified chest pain type documented in this encounter Results * STRESS TEST TREADMILL (NO IMAGING) (01/17/2015 9:33 AM MEDICAL APPOINTMENT SCHEDULER) Stress Test Summary For full formatted report, [...] stress study. Confirmed by MD Lisseth, Joe ([id number]) on 01/22/2015 7:36:09 AM Attending Physician: Shelby Solomon Referred By: ??Jerry KIM Cumberledge ? Overread By: Joe Montanez MD [facility] STRESS 01/17/2015 9:33 AM MEDICAL APPOINTMENT SCHEDULER 01/22/2015 7:36 AM MEDICAL APPOINTMENT SCHEDULER Sam Dubon MD CARDIAC SERVICES ORD ERABLES Performing Organization Address City/[facility] Co de Phone Number [facility] STRESS * D-DIMER (01/08/2015 11:53 AM CDT) D-Dimer 0.36 <0.50 mcg/mL [facility] Comment: The D-Dimer test is used frequently [...] 11:295(2):199-207] For additional information, please refer to: http://education.Javelin/faq/PXC478 (This link is being provided for informational/ educational purposes only) Test Performed at: [email or web address] [address] [place] [address] ??[phone] ENRICO VALDEZ DO,MPH Blood specimen (specimen) BLOOD SPECIMEN / Unknown 01/08/2015 11:53 AM CDT 01/08/2015 11:53 AM CDT Sam Dubon MD LAB - COAGULATION OR DERABLES Performing Organization Address City/[facility] Co de Phone Number [facility] [phone] [place] [address] * HEPATIC FUNCTION PANEL (01/08/2015 11:52 AM CDT) Protein Total 7.3 6.1 - 8.1 g/dL [...] 46 U/L [facility] Comment: Test Performed at: [facility] [address] [place], [place] ??[phone] ENRICO VALDEZ DO,MPH Blood specimen (specimen) BLOOD SPECIMEN / Unknown 01/08/2015 11:52 AM CDT 01/08/2015 11:52 AM CDT Sam Dubon MD LAB - CHEMISTRY MALIA IRVIN Performing Organization Address [facility] de Phone Number [facility] [address] [place] [address] * TROPONIN I (01/08/2015 11:52 AM CDT) Troponin I <0.01 < OR = 0.05 ng/mL [facility] Comment: In accord with published recommendations, serial testing of troponin I at intervals of 2 to 4 hours for up to 12 to 24 hours is suggested in order to corroborate a single troponin I result. An elevated troponin alone is not sufficient to make the diagnosis of NC. Test Performed at: [email or web address] [address] [place] [address] ??[phone] ENRICO VALDEZ DO,MPH Blood specimen (specimen) BLOOD SPECIMEN / Unknown 01/08/2015 11:52 AM CDT 01/08/2015 11:52 AM CDT Sam Dubon MD LAB - CHEMISTRY MALIA IRVIN Performing Organization Address [facility] Co de Phone Number [facility] [phone] [place] [address] * EKG 12-LEAD (01/08/2015) Impressions Zachary Rikbebeto R - 01/08/2015 Sinus rhythm with borderline 1st degree A-V block. Poor R wave progression- probable normal variant Septal T wave changes are nonspecific Borderline ECG Agree- Sam Dubon MD ECG ORDERABLES documented in this encounter Visit Diagnoses Diagnosis Chest pain, unspecified chest pain type- Primary documented in this encounter Care Teams Brewing Director Relationship Specialty Start Date End Date Jerry Fatima MD PCP - General Family Medicine 12/05/14 03/22/19 documented as of this encounter
--- OUTSIDE RECORDS SUMMARY | 2024-03-02 03:19 | XMS_ITS | Encounter Summary ---
Author Organization [facility] [place] Address [address] [place] [address]. [place], [place] [id number] [place] [id number] Care Team Providers Care Database Management Specialist Name Role Phone Clara Stanley Primary Care Provider [phone] Dominick Mccloud MD Unavailable [phone] Alexis Lopez MD Unavailable [phone] Reason for Visit * Auth/Cert (Routine) Specialty Diagnoses / Procedures Referred By Erik [email or web address] Referred To Contact Diagnoses FIFTH METATARSAL FRACTURE Procedures OPEN REDUCTION INTERNAL FIXATION FIFTH METATARSAL FRACTURE LEFT FOOT Antwan Stone DPM [address] [place] [address] Phone: tel: fax: Referral ID Status Reason Start Date Expiration Date Visits Re quested Visits Authorized [id number] 1 1 Encounter Details Date Type Department Care Team (Late st Contact Info) Description 01/28/2023 7:30 AM CUSTOMER SUCCESS INTERN - 01/28/2023 9:09 AM CUSTOMER SUCCESS INTERN Surgery [facility] [place] [address] [facility] [place] [address] Antwan Stone DPM [address], [place] [id number] OPEN REDUCTION INTERNAL FIXATION FIFTH METATARSAL FRACTURE LEFT FOOT Surgery Details Date/Time Status Location OR Service Patient Class Case Class Case Type Trauma Case? 01/28/2023 7:30 AM Posted [facility] OR OR 3 Podiatry Short Stay/Outpati ent Surgery D - Urgent: Needs to occur within 24 hours No Panel 1 Procedure LRB Anes Op Region Wound Class Comments OPEN REDUCTION INTERNAL FIXA TION FIFTH METATARSAL FRACTURE LEFT FOOT Left General Foot Clean Surgeon Surgeon Role Service Panel Antwan Stone, DIEGO Primary Podiatry 1 Case Notes SCHED BY FAX ON 01/21/23 KEMI PHONE ASSESS Special Needs RIVKA HOOK PLATE, VITOSS documented in this encounter Social History Tobacco Use Types Packs/Day Years Used Date Smoking Tobacco: Never Smokeless Tobacco: Never Alcohol Use Standard Drinks/Week Comments Yes 10 (1 standard drink = 0.6 oz pu re alcohol) 6 beers weekly AUDIT-C Answer Date Recorded Frequency of Alcohol Consumption 2-3 times a wee k 06/07/2018 Average Number of Drinks 1 or 2 019 Frequency of Binge Drinking Not on file 05/15 PHQ-2 Answer Date Recorded Patient Health Questionnaire-2 Score 0 12/23/2022 Sex and Gender Information Value Date Recorded Sex Assigned at Not on file Legal Sex Male 9:00 PM CDT Gender Identity Not on file Sexual Orientation Not on file documented as of this encounter Last Filed Vital Signs Vital Sign Reading Time Taken Comments Blood Pressure 151/91 01/28/2023 9:00 AM CUSTOMER SUCCESS INTERN Pulse 71 01/28/2023 9:00 AM CUSTOMER SUCCESS INTERN Temperature 36.6 ??C (97.9 ??F) 01/28/2023 9:[address] Respiratory Rate 17 01/28/2023 9:00 AM CUSTOMER SUCCESS INTERN Oxygen Saturation 95% 01/28/2023 9:00 AM CUSTOMER SUCCESS INTERN Inhaled Oxygen Concentration - - Weight 162.7 kg (358 lb 11 oz) 01/28/2023 6:24 A M CUSTOMER SUCCESS INTERN Height - - Body Mass Index 44.83 12/23/2022 11:15 AM CDT documented in this encounter Discharge Instructions * Discharge Instructions* Florence Estrada RN - 01/28/2023 9:12 AM CUSTOMER SUCCESS INTERN Because you had anesthesia NO DRIVING FOR 24 HRS/ OR WHILE TAKING NARCOTIC PAIN MEDICATION NO ALCOHOL, NO OPERATING MACHINERY, DO NOT SIGN ANY BINDING CONTRACTS FOR 24 HOURS/ OR WHILE TAKINGNARCOTIC PAIN MEDICATION TAKE PAIN MEDICINE WITH FOOD USE STOOL SOFTENER WHILE ON NARCOTICS AVOID GREASY, FRIED OR SPICY FOODS MUST HAVE A RESPONSIBLE ADULT STAY WITH YOU FOR THE REST OF TODAY AND TONIGHT If you have chest pain, shortness of breath, excessive bleeding or drainage, if you cannot hold down anything to eat or drink, or if you cannot urinate, please call 911 or go to the nearest emergencyroom. If you have fever, pain not controlled by your medication, signs of infection such as redness or discharge or swelling at the site, or any other questions or concerns, please call your surgeon. OMER SUCCESS INTERN * Attachments The following attachments cannot be sent through Care Everywhere. * Open Reduction and Internal Fixation Surgery Discharge Instructions ([place]) * General Anesthesia Discharge Instructions ([place]) documented in this encounter Medications at Time of Discharge cetirizine (ZYRTEC) 10 MG tablet Take 1 tablet (10 mg total) by mouth daily. 08/08/2014 Fluticasone-Umeclidi n-Vilant (TRELEGY ELLIPTA) 100-62.5-25 MCG/ACT AEROSOL POWDER, BREATH ACTIVATED Inhale 1 Dose into the lungs daily. montelukast (SINGULAIR) 10 MG tablet Take 1 tablet (10 mg total) by mouth daily. 09/10/2022 Multiple Vitamins-Minerals (MULTIVITAMIN ADULT OR) Take 1 tablet by mouth daily. pantoprazole EC (PROTONIX) 40 MG tablet Take 1 tablet (40 mg total) by mouth daily. vitamin C 1000 MG tablet Take 1 tablet (1,000 mg total) by mouth daily. vitamin D3, cholecalciferol, 1.25 MG (40771 UT) capsule Take 1 capsule (50,000 Units total) by mouth weekly. amLODIPine (NORVASC) 10 MG tabletIndications:Hy pertension, benign TAKE 1 TABLET BY MOUTH EVERY NIGHT AT BEDTIME 90 tablet 3 12/22/2022 4 chlorthalidone (HYGROTEN) 25 MG tablet Take 0.5 tablets (12.5 mg total) by mouth daily. 30 tablet 2 09/29/2022 4 nitroglycerin (NITROSTAT) 0.[address] 1 tablet (0.4 mg total) under the tongue every 5 (five) minutes as needed for Chest Pain (If 3 doses taken, call 911.). Maximum of 3 doses. 25 tablet 1 02/12/2022 3 oxyCODONE-acetaminop hen (PERCOCET) 5-325 MG tabletIndications:Ac [place] Pain < 7 Day Supply Take 1-2 tablets by mouth every 4 (four) hours as needed for Pain. Indications: Acute Pain < 7 Day Supply 40 tablet 01/28/2023 4 pravastatin (PRAVACHOL) 40 MG tabletIndications:Mi xed hyperlipidemia Take 1 tablet (40 mg total) by mouth nightly at bedtime. 90 tablet 2 10/16/2022 4 documented as of this encounter H&P Notes * Antwan Stone, DPM - 01/28/2023 7:20 AM CST History and Physical Name: Kwaku Kulkarni Age: 57-year-old Sex: male Chief Complaint/History of Present Illness Patient presents with: 5th metatarsal fracture left foot that has failed conservative therapy. He has agreed to proceed with surgical intervention at this time. Medications Prior to Admission Medication Sig Dispense Refill amLODIPine (NORVASC) 10 MG tablet TAKE 1 TABLET BY MOUTH EVERY NIGHT AT BEDTIME 90 tablet 3 cetirizine (ZYRTEC) 10 MG tablet Take 1 tablet (10 mg total) by mouth nightly at bedtime. chlorthalidone (HYGROTEN) 25 MG tablet Take 0.5 tablets (12.5 mg total) by mouth daily. 30 tablet 2 Keucqybprch-Auspfmrhd-Quxyxq (TRELEGY ELLIPTA) 100-62.5-25 MCG/ACT AEROSOL POWDER, BREATH ACTIVATEDInhale 1 Dose into the lungs daily. montelukast (SINGULAIR) 10 MG tablet Take 1 tablet (10 mg total) by mouth nightly at bedtime. Multiple Vitamins-Minerals (MULTIVITAMIN ADULT OR) Take 1 tablet by mouth daily. pantoprazole EC (PROTONIX) 40 MG tablet Take 1 tablet (40 mg total) by mouth daily. pravastatin (PRAVACHOL) 40 MG tablet Take 1 tablet (40 mg total) by mouth nightly at bedtime. 90 tablet 2 vitamin C 1000 MG tablet Take 1 tablet (1,000 mg total) by mouth daily. vitamin D3, cholecalciferol, 1.25 MG (69995 UT) capsule Take 1 capsule (50,000 Units total) by mouth weekly. nitroglycerin (NITROSTAT) 0.[address] 1 tablet (0.4 mg total) under the tongue every 5 (five) minutes as needed for Chest Pain (If 3 doses taken, call 911.). Maximum of 3 doses. 25 tablet 1 No Known Allergies Review of Systems A comprehensive review of systems was negative. Exam Filed Vitals: 01/21/23 1518 01/28/23 0624 BP: 137/86 Pulse: 78 Resp: 16 Temp: 98.2 ??F (36.8 ??C) TempSrc: Temporal SpO2: 95% Weight: (!) 158.8 kg (350 lb) (!) 162.7 kg (358 lb 11 oz) Pedal pulses: DP 2/4 in left foot, 2/4 in right foot; PT 2/4 in left foot, 2/4 in right foot. CFT is less than 3 seconds to the digits of the left foot and less than 3 seconds to the digits of the right foot. Neuro: Vibratory, light touch, sharp/dull, temp, proprioceptive sensations intact Derm: No open lesions or ulcerations present. Skin temperature/ turgor/ color WNL b/l Musculoskeletal: Pain on palpation to 5th metatarsal base left foot. Assessment and Plan Nondisplaced fracture 5th metatarsal left foot Plan is for Open reduction internal fixation 5th metatarsal fracture left foot. The procedure, risks, benefits, and possible complications have been discussed with the patient and all questions have been answered at this time. The patient wishes to continue with surgical treatment today. ANTWAN STONE DPM OMER SUCCESS INTERN documented in this encounter Nursing Notes * Cong Marks RN - 01/28/2023 7:55 AM CST 0755 - Updated Faith, on procedure start. 0818 -Updated on procedure finishing. OMER SUCCESS INTERN documented in this encounter OR Notes * Op Note - Antwan Stone DPM - 01/28/2023 8:21 AM CST Post-Operative Note Surgeon: Dr. ANTWAN STONE DPM Preoperative Diagnosis: Nondisplaced fracture fifth metatarsal left foot Postoperative Diagnosis: same Procedure: Open reduction internal fixation fifth metatarsal left foot Pathology: None Anesthesia: General Hemostasis: Pneumatic ankle tourniquet EBL: minimal Complications: none Indication procedure: Patient is a 57-year-old male who had fifth metatarsal fracture following an injury approximately 2months ago. He has been following with another physician and has had serial radiographs throughout that time showing no signs of healing of the fifth metatarsal fracture site. Due to failed conservative measures, patient has elected to proceed with surgical intervention at this time. Procedure in detail: Patient brought into the operating room and placed in the operative table in supine position. Pneumatic tourniquet was placed about the patient's left ankle. Following IV sedation, local anesthesia was obtained about the patient's left foot utilizing 20 cc of a one-to-one mixture 2% lidocaine plainand 0.5% bupivacaine plain. Foot was scrubbed prepped and draped in the usual aseptic manner. Esmarch bandage was utilized to exsanguinate the patient's left foot pneumatic tourniquet was inflated 250 mmHg. Attention was directed to the lateral aspect of the patient's left foot where an approximately 6 cmlongitudinal incision was made along the lateral aspect of the fifth metatarsal fracture site. Incision was deepened through subcutaneous tissues with sharp blunt dissection with care taken to identify and retract all vital neurovascular structures. Bleeders were ligated and cauterized as necessary. Periosteal tissues reflected dorsally and plantarly exposing the fifth metatarsal as well as the fifth metatarsal fracture. Curette was utilized to clear the fracture site of all fibrous tissue. A 1.4 mm drill bit was utilized to drill into both sides of the fracture site to increase bleeding at the fracture site. At this time the fracture site was filled with [employer] medical augment and [place] V toss bone grafting. Next following standard AO principles and techniques, the fracture was reducedand compressed utilizing a Hel[employer] medical Valentine fracture plate and screws. Fluoroscopy was utilizedthroughout the procedure to ensure proper reduction of the fracture site as well as proper locationof all hardware. Areas flushed with copious amounts normal sterile saline solution. Layered closurewas performed this time utilizing 3-0 Vicryl and 4-0 nylon. Sterile compressive dressing was applied to the patient's left foot. Pneumatic tourniquet was deflated and a prompt hyperemic response was noted to all digits of the right left foot. Patient the patient below-knee fiberglass posterior splint with the foot in 90 degrees to the leg. Patient seems to tolerated both procedure and anesthesia well. He was transferred to the recovery room with vital signs stable vascular status intact all digits left foot. We repeated postoperative monitoring, patient will be discharged home with both written and oral postoperative instructions. Carrollwill remain nonweightbearing to the left lower extremity with the assistance of knee scooter and/orcrutches. He will follow-up in the office in 2 weeks time. He is to call sooner should any problemsor concerns arise. ANTWAN STONE DPM OMER SUCCESS INTERN * OR PreOp - Shanelle Avila CNP - 01/22/2023 9:20 AM CST Chart reviewed. Per phone interview, patient denies any SOB/CP with 2 FOS or recent changes in activity tolerance in past 6 months. Patient sees licensed loan officer assistant Dr. Mccloud and previous cardiac testing copied. ASA level III - will need H&P 03/24/22 Treadmill nuclear stress 1. Clinically negative. 2. Electrocardiographically negative treadmill test for ischemia. 3. Adequate exercise capacity. 4. Morfin Treadmill Score is 6, which indicates low risk. 5. Blood pressure response was normal. 6. Scintigraphic images to follow. Perfusion conclusion: 1. Excellent study quality. No motion correction was applied to images. No attenuation is noted. Prone imaging was performed. 2. Normal myocardial perfusion SPECT imaging. 3. Normal wall motion with an ejection fraction of 67%. 4. Stress test with myocardial perfusion imaging shows overall low risk for a cardiac event. 03/19/22 TTE The left ventricular size is normal. Estimated left ventricular ejection fraction is 55-60%. Left ventricular diastolic function is normal. Wall motion appears normal in all segments. The right ventricular size is mildly enlarged. Right ventricular systolic function is normal. No significant valvular abnormalities. 03/17/19 EKG personally overread: Normal sinus rhythm, left axis deviation, partial right bundle branch block. OMER SUCCESS INTERN * OR PreOp - Joyce Glover RN - 01/21/2023 3:21 PM CST PATIENT CAN CLIMB 2 FLIGHTS OF STAIRS WITHOUT CP OR EXTREME SOB. yes ACTIVITY TOLERANCE IS THE SAME 6 MONTHS AGO. yes DENIES CARDIAC TESTING. Dr Mccloud is Belt Lacer AVERAGE BLOOD PRESSURE? Good since starting Chlorthalidone Vaccinated against covid-19. Had virus in past. OMER SUCCESS INTERN documented in this encounter Plan of Treatment Upcoming Encounters Date Type Department Care Team (Late st Contact Info) Description 03/28/2024 7:30 AM CUSTOMER SUCCESS INTERN Hospital En[facility] [place] [address] Antwan Stone DPM [address] [place] [address] 03/28/2024 7:30 AM CUSTOMER SUCCESS INTERN Anesthesia Event [facility] [place] [place] [address] Shanelle Avila CNP [address] [place] [address] 03/28/2024 7:30 AM CUSTOMER SUCCESS INTERN - 03/28/2024 8:48 AM CUSTOMER SUCCESS INTERN Surgery [facility] [place] [address] Antwan Stone DPM [address] [place] [address] REMOVAL OF HARDWARE LEFT FOOT 04/05/2024 8:30 AM CUSTOMER SUCCESS INTERN Office Visit [facility] [address] [place] [address] Dominick Mccloud MD [facility]. [address] [place] [address] Scheduled Procedures Name Priority Associated Diagnoses Date/Ti me REMOVAL PLATE SCREW OR PIN SCHED BY FAX 02/08/24 [facility] PHONE ASSESS 03/28/2024 7:30 AM CUSTOMER SUCCESS INTERN documented as of this encounter Procedures Procedure Name Priority Date/Time Associated Diagnosis Comments SURG XR FOOT LT 2V Routine 01/28/2023 8:46 AM CUSTOMER SUCCESS INTERN OPEN REDUCTION INTERNAL FIXATION FOOT/METATARSAL 01/28/2023 7:28 AM CUSTOMER SUCCESS INTERN FIFTH METATARSAL FRACTURE Case Notes SCHED BY FAX ON 01/21/23 JDK PHONE ASSESS Special Needs RIVKA HOOK PLATE, VITOSS documented in this encounter Results * SURG XR FOOT LT 2V (01/28/2023 8:46 AM CUSTOMER SUCCESS INTERN) Anatomical Region Laterality Modality Foot Radiographic Trang ging 01/28/2023 12:4 7 PM CUSTOMER SUCCESS INTERN Impressions 01/28/2023 12:47 PM CUSTOMER SUCCESS INTERN Impression: No radiologic interpretation will be issued. ??The report and documentation of this exam will reside in the patient's permanent medical record and in the attending physician's procedure note. Ordered By: ANTWAN STONE Interpreted By: Ruben Mahoney MD, 01/28/2023 12:47 PM Narrative 01/28/2023 12:47 PM CUSTOMER SUCCESS INTERN FLUOROSCOPY CONTROL ONLY Procedure Note Ruben Mahoney MD - 01/28/2023 FLUOROSCOPY CONTROL ONLY Impression: No radiologic interpretation will be issued. The report anddocumentation of this exam will reside in the patient's permanent medicalrecord and in the attending physician's procedure note. Ordered By: ANTWAN STONE Interpreted By: Ruben Mahoney MD, 01/28/2023 12:47 PM us Antwan Stone DPM IMAGES ONLY Final Res ult documented in this encounter Visit Diagnoses Not on filedocumented in this encounter Administered Medications Inactive Administered Medications - up to 3 most recent administrations Medication Order MAR Action Action Date Dose Rate Site BUpivacaine (PF) (MARCAINE) 10 mL, lidocaine (XYLOCAINE) 2 % 10 mL solution As needed, Starting on Thu01/28/23 at 0738, Until Thu01/28/23 at 0822, Intra-Op Given 01/28/2023 7:38 AM CUSTOMER SUCCESS INTERN 20 mLs Operative Site famotidine (PF) (PEPCID) injection 20 mg 20 mg, Intravenous, Once, 1 dose, On Thu01/28/23 at 0645, On admission IV Push over 2 minutes, Pre-Op Given 01/28/2023 6:47 AM CUSTOMER SUCCESS INTERN 20 mg HYDROmorphone (DILAUDID) injection 0.2 mg 0.2 mg, Intravenous, Every 10 min PRN, Severe pain (Scale 8 - 10), 10 doses, Starting on Thu01/28/23 at 0817, Until Thu01/28/23 at 0918, Maximum cumulative dose 2 mg. Do not administer if patient is overly sedated, SpO2 less than 90%, or Respiratory Rate less than 12. If more than one IV analgesic is ordered per pain level, use in this order: fentaNYL, morphine, HYDROmorphone. If desired pain control is not reached, move to next ordered medication at next dosing interval., PACU Given 01/28/2023 8:35 AM CUSTOMER SUCCESS INTERN 0.2 mg Given 01/28/2023 8:30 AM CUSTOMER SUCCESS INTERN 0.2 mg lactated ringers infusion at 10 mL/hr, Intravenous, Continuous, Starting on Thu01/28/23 at 0645, Until Thu01/28/23 at 1234, Infuse at TKO rate, Pre-Op New Bag 01/28/2023 7:28 AM CUSTOMER SUCCESS INTERN metoclopramide (REGLAN) injection 10 mg 10 mg, Intravenous, Once, 1 dose, On Thu01/28/23 at 0645, On admission, Pre-Op Given 01/28/2023 6:47 AM CUSTOMER SUCCESS INTERN 10 mg oxyCODONE immediate release (ROXICODONE) tablet 5 mg 5 mg, Oral, Once as needed, Other, Mild pain (Scale 1 - 3), 1 dose, Starting on Thu01/28/23 at 0817, Until Thu01/28/23 at 0845, Do not administer if patient is overly sedated, SpO2 LESS than 90%, or Respiratory Rate LESS than 12., PACU Given 01/28/2023 8:45 AM CUSTOMER SUCCESS INTERN 5 mg documented in this encounter Active and Recently Administered Medications Times are shown in CUSTOMER SUCCESS INTERN. Scheduled Medication Order 01/26/2023 01/27/2023 01/28/2023 ceFAZolin (ANCEF) 3 g in sodium chloride 0.9 % 100 mL IVPB (COMPLETED) 3 g, Intravenous, at 200 mL/hr, weight caller to O.R., 1 dose, First dose on Thu01/28/23 at 0615, Pre-Op 0738 (New Bag - Prov ider: Jadyn Kessler CRNA)0748 (Infusion Stop Time - Provider: Jadyn Kessler CRNA) famotidine (PF) (PEPCID) injection 20 mg (COMPLETED) 20 mg, Intravenous, Once, 1 dose, On Thu01/28/23 at 0645, On admission IV Push over 2 minutes, Pre-Op 0647 (Given - Provid er: Beba Velasquez RN) metoclopramide (REGLAN) injection 10 mg (COMPLETED) 10 mg, Intravenous, Once, 1 dose, On Thu01/28/23 at 0645, On admission, Pre-Op 0647 (Given - Provid er: Beba Velasquez RN) Continuous Medication Order 01/26/2023 01/27/2023 01/28/2023 lactated ringers infusion at 10 mL/hr, Intravenous, Continuous, Starting on Thu01/28/23 at 0645, Until Thu01/28/23 at 1234, Infuse at TKO rate, Pre-Op 0728 (New Bag - Prov ider: Jadyn Kessler CRNA)0804 (Anesthesia Volume Adjustment - Provider: Jadyn Kessler CRNA) PRN Medication Order 01/26/2023 01/27/2023 01/28/2023 BUpivacaine (PF) (MARCAINE) 10 mL, lidocaine (XYLOCAINE) 2 % 10 mL solution (CANCELED) As needed, Starting on Thu01/28/23 at 0738, Until Thu01/28/23 at 0822, Intra-Op 0738 (Given - Provid er: Antwan Stone DPM) HYDROmorphone (DILAUDID) injection 0.2 mg (CANCELED) 0.2 mg, Intravenous, Every 10 min PRN, Severe pain (Scale 8 - 10), 10 doses, Starting on Thu01/28/23 at 0817, Until Thu01/28/23 at 0918, Maximum cumulative dose 2 mg. Do not administer if patient is overly sedated, SpO2 less than 90%, or Respiratory Rate less than 12. If more than one IV analgesic is ordered per pain level, use in this order: fentaNYL, morphine, HYDROmorphone. If desired pain control is not reached, move to next ordered medication at next dosing interval., PACU 0830 (Given - Provid er: Matti Cartagena RN)0835 (Given - Provider: Matti Cartagena RN) oxyCODONE immediate release (ROXICODONE) tablet 5 mg (COMPLETED) 5 mg, Oral, Once as needed, Other, Mild pain (Scale 1 - 3), 1 dose, Starting on Thu01/28/23 at 0817, Until Thu01/28/23 at 0845, Do not administer if patient is overly sedated, SpO2 LESS than 90%, or Respiratory Rate LESS than 12., PACU 0845 (Given - Provid er: Matti Cartagena RN) documented in this encounter Additional Health Concerns Assessment Noted Time PHQ-9 Depression Total Score: 0 10/26/19 22 11:07 AM CDT documented as of this encounter Care Teams Database Management Specialist Relationship Specialty Start Date End Date Clara Stanley APNP [address] [place] [address] [id number] PCP - General NURSE PRACTITIONER 06/01/18 Dominick Mccloud MD [id number] [place] [address] [place] Belt Lacer CARDIOVASCULAR DISEASE 03/28/19 Alexis Lopez MD [address] [facility] [address] [address] PULMONARY DISEASE 10/21/19 documented as of this encounter
--- OUTSIDE RECORDS SUMMARY | 2024-03-02 03:19 | XMS_ITS | Encounter Summary ---
Author Organization [facility] Address [address] [place] [address]. [place], [place] [address] [place] [address] Care Team Providers Care Hall Porter Name Role Phone Clara Stanley Primary Care Provider [phone] Dominick Mccloud MD Unavailable [phone] Alexis Lopez MD Unavailable [phone] Encounter Details Date Type Department Care Team (Latest Contact Info) Description 04/01/2022 Travel Social History Tobacco Use Types Packs/Day Years Used Date Smoking Tobacco: Never Smokeless Tobacco: Never Alcohol Use Standard Drinks/Week Comments Yes 0 (1 standard drink = 0.6 oz pur e alcohol) 6 beers weekly AUDIT-C Answer Date Recorded Frequency of Alcohol Consumption 2-3 times a wee k 06/07/2018 Average Number of Drinks 1 or 2 019 Frequency of Binge Drinking Not on file 05/15 PHQ-2 Answer Date Recorded PHQ-2 Score - If the patient scores above 3, please move on to questions 3-9 0 10/25/2021 Sex and Gender Information Value Date Recorded Sex Assigned at Not on file Legal Sex Male 9:00 PM CDT Gender Identity Not on file Sexual Orientation Not on file COVID-19 Exposure Response Date Recorded In the last 10 days, have yo u been in contact with someone who was confirmed or suspected to have Coronavirus/COVID-19? No / Unsure 04/01/2022 8:46 AM ELECTRO TECH documented as of this encounter Plan of Treatment Upcoming Encounters Date Type Department Care Team (Late st Contact Info) Description 03/28/2024 7:30 AM ELECTRO TECH Hospital Encounter [facility] [place] [address] Antwan Stone, DIEGO [address], [place] [address] 03/28/2024 7:30 AM ELECTRO TECH Anesthesia Event [place] [address] Shanelle Avila, INSTRUMENT ENGINEER 1 [place] [address] 03/28/2024 7:30 AM ELECTRO TECH - 03/28/2024 8:48 [address] [place] [address] Antwan Stone, DIEGO [address], [place] [address] REMOVAL OF HARDWARE LEFT FOOT 04/05/2024 8:30 AM ELECTRO TECH Office Visit Darren Chaudhari-O'F allon THREE [facility], [facility] [address] [place] [address] Dominick Mccloud MD Three [facility]. [facility] [address] [place] [address] Scheduled Procedures Name Priority Associated Diagnoses Date/Ti me REMOVAL PLATE SCREW OR PIN SCHED BY FAX 02/08/24 JUANITOS PHONE ASSESS 03/28/2024 7:30 AM ELECTRO TECH documented as of this encounter Visit Diagnoses Not on filedocumented in this encounter Additional Health Concerns Assessment Noted Time PHQ-9 Depression Total Score: 0 10/26/19 22 11:07 AM CDT documented as of this encounter Care Teams Hall Porter Relationship Specialty Start Date End Date Clara Stanley APNP [address] [place] [address] PCP - General NURSE PRACTITIONER 06/01/18 Dominick Mccloud MD [facility] [address] [place] [address] Chickasha Photographer Lithographic CARDIOVASCULAR DISEASE 03/28/19 Alexis Lopez MD 4600 [facility] [address] [address] PULMONARY DISEASE 10/21/19 documented as of this encounter
--- OUTSIDE RECORDS SUMMARY | 2024-03-02 03:19 | XMS_ITS | Encounter Summary ---
Author Organization [facility] Address [address] [place] [address]. [place], [place] [address] [place] [address] Care Team Providers Care Criminology Professor Name Role Phone Clara Stanley Primary Care Provider [phone] Dominick Mccloud MD Unavailable [phone] Alexis Lopez MD Unavailable [phone] Encounter Details Date Type Department Care Team (Latest Contact Info) Description 08/30/2022 Scan [employer] INFO SRVCS Scanned, [facility] Social History Tobacco Use Types Packs/Day Years [...] on file documented as of this encounter Plan of Treatment Upcoming Encounters Date Type Department Care Team (Late st Contact Info) Description 03/28/2024 7:30 AM [facility] Hospital Encounter [facility] [place] [address] Antwan Stone DPM [address], [place] [address] 03/28/2024 7:30 AM CABLE WORKER HELPER Anesthesia Event [facility] [place] [address] Shanelle Avila, LOG HAUL CHAIN FEEDER 1 [place] [address] 03/28/2024 7:30 AM CABLE WORKER HELPER - 03/28/2024 8:48 AM CABLE WORKER HELPER Surgery [facility] [place] [address] Antwan Stone, DIEGO [address], [place] [address] REMOVAL OF HARDWARE LEFT FOOT 04/05/2024 8:30 AM CABLE WORKER HELPER Office Visit Leonisela Chaudhari-O'F allon THREE [facility], [facility] [address] [place] [address] Dominick Mccloud MD Three [facility]. [facility] [address] [place] [address] Scheduled Procedures Name Priority Associated Diagnoses Date/Ti me REMOVAL PLATE SCREW OR PIN SCHED BY FAX 02/08/24 [facility] PHONE ASSESS 03/28/2024 7:30 AM CABLE WORKER HELPER documented as of this encounter Visit Diagnoses Not on filedocumented in this encounter Additional Health Concerns Assessment Noted Time PHQ-9 Depression Total Score: 0 10/26/19 22 11:07 AM CDT documented as of this encounter Care Teams Criminology Professor Relationship Specialty Start Date End Date Clara Stanley APNP [address] [place] [address] PCP - General NURSE PRACTITIONER 06/01/18 Dominick Mccloud MD [facility]. [facility] [address] [place] [address] Odessa Senior It Business Analyst CARDIOVASCULAR DISEASE 03/28/19 Alexis Lopez MD 4600 [facility] [address] [place] [address] PULMONARY DISEASE 10/21/19 documented as of this encounter
--- OUTSIDE RECORDS SUMMARY | 2024-03-02 03:19 | XMS_ITS | Encounter Summary ---
Author Organization [facility] Address [address] [place] [address]. [place], [place] [address] [place] [address] Care Team Providers Care Natural Remedy Consultant Name Role Phone Clara Stanley Primary Care Provider [phone] Dominick Mccloud MD Unavailable [phone] Alexis Lopez MD Unavailable [phone] Encounter Details Date Type Department Care Team (Latest Contact Info) Description 02/22/2024 Travel Social History Tobacco Use Types Packs/Day [...] Date Recorded Patient Health Questionnaire-2 Score 0 09/10/2023 Sex and Gender Information Value Date Recorded Sex Assigned at Not on file Legal Sex Male 9:00 PM CDT Gender Identity Not on file Sexual Orientation Not on file documented as of this encounter Plan of Treatment Upcoming Encounters Date Type Department Care Team (Late st Contact Info) Description 03/28/2024 7:30 AM [facility] Hospital Encounter [facility] [place] [address] Antwan Stone DPM [address], [place] [address] 03/28/2024 7:30 AM REGULATORY COMPLIANCE ENGINEER Anesthesia [place] [address] Shanelle Avila, MAITRE D' [address] [place] [address] 03/28/2024 7:30 AM REGULATORY COMPLIANCE ENGINEER - 03/28/2024 8:48 AM REGULATORY COMPLIANCE ENGINEER Surgery [place] [address] Antwan Stone, DPM [address], [place] [address] REMOVAL OF HARDWARE LEFT FOOT 04/05/2024 8:30 AM REGULATORY COMPLIANCE ENGINEER Office Visit Darren Chaudhari-O'F allon THREE [facility], [facility] [address] [place] [address] Dominick Mccloud MD Three [facility]. [facility] [address] [place] [address] Scheduled Procedures Name Priority Associated Diagnoses Date/Ti me REMOVAL PLATE SCREW OR PIN SCHED BY FAX 02/08/24 [facility] PHONE ASSESS 03/28/2024 7:30 AM REGULATORY COMPLIANCE ENGINEER documented as of this encounter Visit Diagnoses Not on filedocumented in this encounter Additional Health Concerns Assessment Noted Time PHQ-9 Depression Total Score: 0 10/26/19 22 11:07 AM CDT documented as of this encounter Care Teams Natural Remedy Consultant Relationship Specialty Start Date End Date Clara Stanley APNP [address] [place] [address] PCP - General NURSE PRACTITIONER 06/01/18 Dominick Mccloud MD [facility]. [facility] [address] [place] [address] Weston Science Writer CARDIOVASCULAR DISEASE 03/28/19 Alexis Lopez MD [address] [facility] [address] [place] [address] PULMONARY DISEASE 10/21/19 documented as of this encounter
--- OUTSIDE RECORDS SUMMARY | 2024-03-02 03:19 | XMS_ITS | Encounter Summary ---
Author Organization [facility] Address [address] [place] [address]. [place], [place] [address] [place] [address] Care Team Providers Care Plant Operations Engineer Name Role Phone Clara Stanley Primary Care Provider [phone] Dominick Mccloud MD Unavailable [phone] Alexis Lopez MD Unavailable [phone] Reason for Visit * Reason Onset Date Comments Appointment Request 08/20/2023 Medication Request 08/20/2023 Encounter Details Date Type Department Care Team (Latest Contact Info) Description 08/20/2023 MyChart Message Enc [facility] Family & Internal Medicine [facility] [address] [place] [address] Clara Stanley APNP [address] [place] [address] Weight Loss Drug Prescription Social History Tobacco Use Types Packs/Day Years [...] st Contact Info) Description 03/28/2024 7:30 AM VEHICLE DETAILER Hospital Encounter [facility] [place] [address] Antwan Stone, DPM [address], [place] [address] 03/28/2024 7:30 AM VEHICLE DETAILER Anesthesia Event [place] [address] Shanelle Avila, MILLING SUPERVISOR 1 [facility] [place] [address] 03/28/2024 7:30 AM VEHICLE DETAILER - 03/28/2024 8:48 AM VEHICLE DETAILER Surgery [facility] [place] [address] Antwan Stone, DIEGO [address], [place] [address] REMOVAL OF HARDWARE LEFT FOOT 04/05/2024 8:30 AM VEHICLE DETAILER Office Visit Darren Cardiovascular-O'F allon THREE [facility], [facility] [address] [place] [address] Dominick Mccloud MD Three [facility]. [facility] [address] [place] [address] Scheduled Procedures Name Priority Associated Diagnoses Date/Ti me REMOVAL PLATE SCREW OR PIN SCHED BY FAX 02/08/24 KAYLIE PHONE ASSESS 03/28/2024 7:30 AM VEHICLE DETAILER documented as of this encounter Visit Diagnoses Not on filedocumented in this encounter Additional Health Concerns Assessment Noted Time PHQ-9 Depression Total Score: 0 10/26/19 22 11:07 AM CDT documented as of this encounter Care Teams Plant Operations Engineer Relationship Specialty Start Date End Date Clara Stanley APNP [facility] [place] [address] PCP - General NURSE PRACTITIONER 06/01/18 Dominick Mccloud MD [address] [address] [place] Wool Broker CARDIOVASCULAR DISEASE 03/28/19 Alexsi Lopez MD [address] [address] PULMONARY DISEASE 10/21/19 documented as of this encounter
--- OUTSIDE RECORDS SUMMARY | 2024-03-02 03:19 | XMS_ITS | Encounter Summary ---
Author Organization [facility] Address [address] [place] [address]. [place], [place] [address] [place] [address] Care Team Providers Care Bottle Packing Machine Cleaner Name Role Phone Clara Stanley Primary Care Provider [phone] Dominick Mccloud MD Unavailable [phone] Alexis Lopez MD Unavailable [phone] Reason for Visit * Reason Comments Hypertension Lipids 6 month follow up Encounter Details Date Type Department Care Team (Late st Contact Info) Description 03/31/2023 8:45 AM CHIEF WARDEN Office Visit Milam Cardiovascular-O'Leisa jacobson [facility], [facility] [address] [place], [place] [id number] Dominick Mccloud MD Three [facility]. [facility] [address] [place], [place] [id number] Hypertension; Lipids (6 month follow up) Social History Tobacco Use Types Packs/Day Years [...] Sign Reading Time Taken Comments Blood Pressure 138/82 03/31/2023 8:49 AM CHIEF WARDEN Pulse 83 03/31/2023 8:49 AM CHIEF WARDEN Temperature - - Respiratory Rate - - Oxygen Saturation 97% 03/31/2023 8:49 AM CHIEF WARDEN Inhaled Oxygen Concentration - - Weight 166 kg (366 lb) 03/31/2023 8:49 AM CHIEF WARDEN Height 190.5 cm (6' 3 ) 03/31/2023 8:49 AM CHIEF WARDEN Body Mass Index 45.75 03/31/2023 8:49 AM CHIEF WARDEN documented in this encounter Progress Notes * Dominick Mccloud MD - 03/31/2023 8:45 AM CST Reason for Visit: Hypertension and Lipids (6 month follow up) History of Present Illness: Kwaku Kulkarni is a 57-year-old male with a history of hypertension and dyslipidemia being seen today for follow-up. He has no current cardiovascular complaints. He has been a bit immobilized for the past several months after a foot fracture. He denies any current chest pain, shortness of breath, heart failure symptoms. Home blood pressures are typically in the 130s over 80s. ASSESSMENT AND PLAN: PROBLEM LIST: 1. Intracranial hypertension. 2. Hypertension. 3. Dyslipidemia. 4. GERD. 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 12/2020 recurrent paratracheal lymph node, s/p mediastinal XRT 02/2021 6. Varicose veins s/p Right stab phlebectomy 7. Possible LEONOR PLAN Dyspnea on exertion: Previous cardiac workup was reassuring, symptoms improved with Trelegy. Hypertension: Blood pressure is reasonably controlled but will increase his chlorthalidone from half tablet to a full tablet both for ease of taking as well as a bit improved blood pressure control given his youngage. Will check labs in 1 week. Dyslipidemia: 10/2022 labs included LDL 124. Pravastatin was increased at that time from 20 to 40 mg. Based on these labs, his 10-year cardiovascular risk is estimated at 6.7%. As above we will also improve his blood pressure control. I will plan to see him back in 6 months unless issues arise in the interim. Thank you for allowing me to participate in the care of your patient. Please feel free to contact me with any further questions or concerns. DATA REVIEWED: 03/24/22 Treadmill nuclear stress 1. Clinically negative. [...] axis deviation, partial right bundle branch block. 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 He has no history of tobacco use, reports rare alcohol use, denies illicit substance use. FAMILY HISTORY: Significant for father who had coronary disease in his 60s. Medications: Current Outpatient Medications: chlorthalidone (HYGROTEN) 25 MG tablet, Take 1 tablet (25 mg total) by mouth daily., Disp: 90 tablet, Rfl: 3 amLODIPine (NORVASC) 10 MG tablet, TAKE 1 TABLET BY MOUTH EVERY NIGHT AT BEDTIME, Disp: 90 tablet, Rfl: 3 cetirizine (ZYRTEC) 10 MG tablet, Take 1 tablet (10 mg total) by mouth nightly at bedtime., Disp: ,Rfl: Pwbqiwjhbkf-Iewizhmqp-Ltvqgn (TRELEGY ELLIPTA) 100-62.5-25 MCG/ACT AEROSOL POWDER, BREATH ACTIVATED, Inhale 1 Dose into the lungs daily., Disp: , Rfl: montelukast (SINGULAIR) 10 MG tablet, Take 1 tablet (10 mg total) by mouth nightly at bedtime., Disp: , Rfl: Multiple Vitamins-Minerals (MULTIVITAMIN ADULT OR), Take 1 tablet by mouth daily., Disp: , Rfl: pantoprazole EC (PROTONIX) 40 MG tablet, Take 1 tablet (40 mg total) by mouth daily., Disp: , Rfl: pravastatin (PRAVACHOL) 40 MG tablet, Take 1 tablet (40 mg total) by mouth nightly at bedtime., Disp: 90 tablet, Rfl: 3 vitamin C 1000 MG tablet, Take 1 tablet (1,000 mg total) by mouth daily., Disp: , Rfl: vitamin D3, cholecalciferol, 1.25 MG (75056 UT) capsule, Take 1 capsule (50,000 Units total) by mouth weekly., Disp: , Rfl: Review of patient's allergies indicates: No Known Allergies Past Medical History: Diagnosis Date Adenomatous colon polyp 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 ([facility]/HCC) Asthma Depression with anxiety 12/12/2014 GERD (gastroesophageal reflux disease) 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/2019 HLD (hyperlipidemia) HTN (hypertension) IIH (idiopathic intracranial hypertension) Morbid obesity ([facility]) 02/21/2015 Non-small cell carcinoma of lung (HHS/HCC) ([facility]) s/p right lobectomy LEONOR (obstructive sleep apnea) Past Surgical History: Procedure Laterality Date APPENDECTOMY BRONCHOSCOPY COLONOSCOPY COLONOSCOPY N/A 03/21/2022 COLONOSCOPY performed by Joe Medina DO at [facility] GI LUMBAR PUNCTURE 03/28/2019 REMOVAL OF LUNG,LOBECTOMY Right 05/26/2019 partial lower lobectomy TONSILLECTOMY Social History Tobacco Use Smoking status: Never Smokeless tobacco: Never Vaping Use Vaping Use: Never used Substance Use Topics Alcohol use: Yes Alcohol/week: 10.0 standard drinks of alcohol Types: 6 Cans of beer per week Comment: 6 beers weekly Drug use: No Family History Problem Relation Name Age of Onset Cancer Mother bone Heart Disease Father 65 Family Status Relation Name Status Mother Alive, age 84y Father Alive, age 87y Review of Systems Constitutional: Negative for recent unintentional weight gain, recent unintentional weight loss andnew or significant fatigue. HENT: Negative for new or significant hearing loss. Eyes: Negative for blurred vision and double vision. Respiratory: Negative for cough, new or significant shortness of breath and snoring. Cardiovascular: See HPI. Gastrointestinal: Negative for blood in stool and melena. Genitourinary: Negative for dysuria. Musculoskeletal: Negative for myalgias and new or worsening joint stiffness/pain. Skin: Negative for rash. Neurological: Negative for tingling/numbness and focal weakness. Endo/Heme/Allergies: Negative for new or significant bruising/bleeding and polydipsia. Psychiatric/Behavioral: Negative for depression and new or significant memory loss. Filed Vitals: 03/31/23 0849 BP: 138/82 Pulse: 83 SpO2: 97% Weight: (!) 166 kg (366 lb) Height: 1.905 m (6' 3 ) Body mass index is 45.75 kg/m??. Physical Exam Constitutional: No distress. HENT: Dentition normal. Eyes: Conjunctivae normal. Neck: Neck supple. No JVD. Pulmonary: Effort normal. Breath sounds normal. Abdomen: No tenderness. No mass. No hepatomegaly. No splenomegaly. Abdominal aorta not palpably enlarged. Neurological: Alert. Oriented x 3. Appropriate mood and affect. Skin: Dry. Warm. No cyanosis. No clubbing. Musculoskeletal: No kyphosis. Cardiovascular: Rate: Regular rhythm and Normal rate. PMI: PMI not displaced Pulses: Right Carotid pulses 2+, Left Carotid pulses 2+, Right Femoral pulses 2+, Left Femoral pulses 2+, Right DP pulses 2+, Left DP pulses 2+, Negative for edema. Normal pulses. Heart Sounds: Normal heart sounds. Normal S1 and Normal S2. No gallop. No S3 sound. No S4 sound andNo murmur. Cardiovascular Comments: Diagnoses/Impression: 1. Mixed hyperlipidemia 2. Hypertension, benign BASIC METABOLIC PANEL MAGNESIUM Referring Provider: No ref. provider found PCP: ZEB Nunn F WARDEN documented in this encounter Plan of Treatment Upcoming Encounters Date Type Department Care Team (Late st Contact Info) Description 03/28/2024 7:30 AM CHIEF WARDEN Hospital Encounter [facility] [place] [address] Antwan Stone DPM [address] [place] [address] 03/28/2024 7:30 AM CHIEF WARDEN Anesthesia [place] [address] Shanelle Avila, NEW BUSINESS CLERK 1 [place] [address] 03/28/2024 7:30 AM CHIEF WARDEN - 03/28/2024 8:48 AM CHIEF WARDEN Surgery [place] [address] Antwan Stone, DPM [address] [place] [address] REMOVAL OF HARDWARE LEFT FOOT 04/05/2024 8:30 AM CHIEF WARDEN Office Visit Darren Chaudhari-O'F allon THREE [facility], [facility] [address] [place] [address] Dominick Mccloud MD Three [facility]. [facility] [address] [place] [address] Scheduled Orders Name Type Priority Associated Diagnoses Orde r Schedule BASIC METABOLIC PANEL Lab Routine Hypertension, benign Expected: 03/31/2023, Expires: 03/31/2024 MAGNESIUM Lab Routine Hypertension, benign Expected: 03/31/2023, Expires: 03/31/2024 Scheduled Procedures Name Priority Associated Diagnoses Date/Ti me REMOVAL PLATE SCREW OR PIN SCHED BY FAX 02/08/24 [facility] PHONE ASSESS 03/28/2024 7:30 AM CHIEF WARDEN documented as of this encounter Visit Diagnoses Diagnosis Mixed hyperlipidemia- Primary Hypertension, benign Essential hypertension, benign Painful orthopaedic hardware (CMS/HCC)- Primary documented in this encounter Additional Health Concerns Assessment Noted Time PHQ-9 Depression Total Score: 0 10/26/19 22 11:07 AM CDT documented as of this encounter Care Teams Bottle Packing Machine Cleaner Relationship Specialty Start Date End Date Clara Stanley APNP [facility] [place] [address] PCP - General NURSE PRACTITIONER 06/01/18 Dominick Mccloud MD [facility] [address] [place] [address] [place] Garment Inspector CARDIOVASCULAR DISEASE 03/28/19 Alexis Lopez MD [address] [facility] [address] [address] PULMONARY DISEASE 10/21/19 documented as of this encounter
--- OUTSIDE RECORDS SUMMARY | 2024-03-02 03:19 | XMS_ITS | Encounter Summary ---
Author Organization [facility] Address [address] [place] [address]. [place], [place] [address] [place] [address] Care Team Providers Care Assistant Plant Manager Name Role Phone Clara Stanley Primary Care Provider [phone] Dominick Mccloud MD Unavailable [phone] Alexis Lopez MD Unavailable [phone] Reason for Visit * Auth/Cert (Routine) Specialty Diagnoses / Procedures Referred By Erik [email or web address] Referred To Contact Diagnoses FIFTH METATARSAL FRACTURE Procedures OPEN REDUCTION INTERNAL FIXATION FIFTH METATARSAL FRACTURE LEFT FOOT Antwan Stone DPM [address] [place] [address] Phone: tel: fax: Referral ID Status Reason Start Date Expiration Date Visits Re quested Visits Authorized [id number] 1 1 Encounter Details Date Type Department Care Team (Latest Contact Info) Description 01/28/2023 5:43 AM [facility] - 01/28/2023 10:10 AM [facility] Hospital Encounter [facility] [place] [address] Antwan Stone DPM [address] [place], [place] [address] Discharge Disposition: Home or Self Care (Routine Discharge) Social History Tobacco Use Types Packs/Day Years Used Date Smoking Tobacco: Never Smokeless Tobacco: Never Alcohol Use Standard Drinks/Week Comments Yes 10 (1 standard drink = 0.6 oz pu re alcohol) 6 beers weekly AUDIT-C Answer Date Recorded Frequency of Alcohol Consumption 2-3 times a fiorella k 06/07/2018 Average Number of Drinks 1 [...] Sign Reading Time Taken Comments Blood Pressure 140/90 01/28/2023 10:00 AM BRUSH MAKER Pulse 79 01/28/2023 10:00 AM BRUSH MAKER Temperature 36.3 ??C (97.3 ??F) 01/28/2023 10:[address] Respiratory Rate 16 01/28/2023 10:00 AM BRUSH MAKER Oxygen Saturation 95% 01/28/2023 10:00 AM BRUSH MAKER Inhaled Oxygen Concentration - - Weight 162.7 kg (358 lb 11 oz) 01/28/2023 6:24 A M BRUSH MAKER Height - - Body Mass Index 44.83 12/23/2022 11:15 AM CDT documented in this encounter Discharge Instructions * Discharge Instructions* Florence Estrada RN - 01/28/2023 9:12 AM BRUSH MAKER Because you had anesthesia NO DRIVING FOR [...] questions or concerns, please call your surgeon. H MAKER * Attachments The following attachments cannot be sent through Care Everywhere. * Open Reduction and Internal Fixation Surgery Discharge Instructions (Bhutanese) * General Anesthesia Discharge Instructions (Bhutanese) documented in this encounter Medications at Time [...] mouth daily. vitamin D3, cholecalciferol, 1.25 MG (91457 UT) capsule Take 1 capsule (50,000 Units [...] 3 oxyCODONE-acetaminop hen (PERCOCET) 5-325 MG tabletIndications:Ac charlie Pain < 7 Day Supply Take 1-2 tablets by mouth every 4 (four) hours as needed for Pain. Indications: Acute Pain < 7 Day Supply 40 tablet 01/28/2023 4 pravastatin (PRAVACHOL) 40 MG tabletIndications:Mi xed hyperlipidemia Take 1 tablet (40 mg total) by mouth nightly at bedtime. 90 tablet 2 10/16/2022 4 documented as of this encounter H&P Notes * Antwan Stone DPM - 01/28/2023 7:20 AM CST History [...] total) by mouth daily. 30 tablet 2 Pvnwwqirsrl-Oujcbenmx-Pjoyzd (TRELEGY ELLIPTA) 100-62.5-25 MCG/ACT AEROSOL POWDER, BREATH [...] mouth daily. vitamin D3, cholecalciferol, 1.25 MG (99303 UT) capsule Take 1 capsule (50,000 Units [...] with surgical treatment today. ANTWAN STONE DPM H MAKER documented in this encounter Nursing Notes * Cong Marks RN - 01/28/2023 7:55 AM CST 0755 - Updated Faith, on procedure start. 0818 -Updated on procedure finishing. H MAKER documented in this encounter OR Notes * [...] was filled with [facility] and [place] V toss bone grafting. Next following standard [...] with both written and oral postoperative instructions. Maria Luz remain nonweightbearing to the left lower extremity with the assistance of knee scooter and/orcrutches. He will follow-up in the office in 2 weeks time. He is to call sooner should any problemsor concerns arise. ANTWAN STONE DPM H MAKER * OR PreOp - Shanelle Avila CNP - 01/22/2023 9:20 AM CST Chart reviewed. Per phone interview, patient denies any SOB/CP with 2 FOS or recent changes in activity tolerance in past 6 months. Patient sees produce runner Dr. Mccloud and previous cardiac testing copied. [...] axis deviation, partial right bundle branch block. H MAKER * OR PreOp - Joyce Glover RN - 01/21/2023 3:21 PM CST PATIENT CAN CLIMB 2 FLIGHTS OF STAIRS WITHOUT CP OR EXTREME SOB. yes ACTIVITY TOLERANCE IS THE SAME 6 MONTHS AGO. yes DENIES CARDIAC TESTING. Dr Mccloud is Volunteer Services Specialist AVERAGE BLOOD PRESSURE? Good since starting Chlorthalidone Vaccinated against covid-19. Had virus in past. H MAKER documented in this encounter Plan of Treatment Upcoming Encounters Date Type Department Care Team (Late st Contact Info) Description 03/28/2024 7:30 AM BRUSH MAKER Hospital Encounter [facility] [place] [address] Antwan Stone DPM [address], [place] [address] 03/28/2024 7:30 AM BRUSH MAKER Anesthesia [place] [address] Shanelle Avila, TARE WEIGHER [address] [place] [address] 03/28/2024 7:30 AM BRUSH MAKER - 03/28/2024 8:48 AM BRUSH MAKER Surgery [facility] [address] Antwan Stone DPM [address], [place] [address] REMOVAL OF HARDWARE LEFT FOOT 04/05/2024 8:30 AM BRUSH MAKER Office Visit Darren Chaudhari-O'F allon THREE [facility], [facility] [address] [place] [address] Dmoinick Mccloud MD Three [facility]. [facility] [address] [place] [address] Scheduled Procedures Name Priority Associated Diagnoses Date/Ti me REMOVAL PLATE SCREW OR PIN SCHED BY FAX 02/08/24 [facility] PHONE ASSESS 03/28/2024 7:30 AM BRUSH MAKER documented as of this encounter Procedures Procedure Name Priority Date/Time Associated Diagnosis Comments SURG XR FOOT LT 2V Routine 01/28/2023 8:46 AM BRUSH MAKER OPEN REDUCTION INTERNAL FIXATION FOOT/METATARSAL 01/28/2023 7:28 AM BRUSH MAKER FIFTH METATARSAL FRACTURE Case Notes SCHED BY FAX ON 01/21/23 JDK PHONE ASSESS Special Needs RIVKA HOOK PLATE, VITOSS documented in this encounter Results * SURG XR FOOT LT 2V (01/28/2023 8:46 AM BRUSH MAKER) Anatomical Region Laterality Modality Foot Radiographic Trang ging 01/28/2023 12:4 7 PM BRUSH MAKER Impressions 01/28/2023 12:47 PM BRUSH MAKER Impression: No radiologic interpretation will be issued. ??The report and documentation of this exam will reside in the patient's permanent medical record and in the attending physician's procedure note. Ordered By: ANTWAN STONE Interpreted By: Ruben Mahoney MD, 01/28/2023 12:47 PM Narrative 01/28/2023 12:47 PM BRUSH MAKER FLUOROSCOPY CONTROL ONLY Procedure Note Ruben Mahoney [...] ult documented in this encounter Visit Diagnoses Diagnosis Nondisplaced fracture of fifth left metatarsal bone with delayed healing- Primary Aftercare for healing traumatic fracture of other bone S/P foot surgery, left Painful orthopaedic hardware (CMS/HCC)- Primary documented in this encounter Administered Medications Inactive Administered Medications - up to 3 most recent administrations Medication Order MAR Action Action Date Dose Rate Site famotidine (PF) (PEPCID) injection 20 mg 20 mg, Intravenous, Once, 1 dose, On Thu01/28/23 at 0645, On admission IV Push over 2 minutes, Pre-Op Given 01/28/2023 6:47 AM BRUSH MAKER 20 mg HYDROmorphone (DILAUDID) injection 0.2 mg [...] dosing interval., PACU Given 01/28/2023 8:35 AM BRUSH MAKER 0.2 mg Given 01/28/2023 8:30 AM BRUSH MAKER 0.2 mg lactated ringers infusion at 10 mL/hr, Intravenous, Continuous, Starting on Thu01/28/23 at 0645, Until Thu01/28/23 at 1234, Infuse at TKO rate, Pre-Op New Bag 01/28/2023 7:28 AM BRUSH MAKER metoclopramide (REGLAN) injection 10 mg 10 mg, Intravenous, Once, 1 dose, On Thu01/28/23 at 0645, On admission, Pre-Op Given 01/28/2023 6:47 AM BRUSH MAKER 10 mg oxyCODONE immediate release (ROXICODONE) tablet 5 mg 5 mg, Oral, Once as needed, Other, Mild pain (Scale 1 - 3), 1 dose, Starting on Thu01/28/23 at 0817, Until Thu01/28/23 at 0845, Do not administer if patient is overly sedated, SpO2 LESS than 90%, or Respiratory Rate LESS than 12., PACU Given 01/28/2023 8:45 AM BRUSH MAKER 5 mg documented in this encounter Active and Recently Administered Medications Times are shown in BRUSH MAKER. Scheduled Medication Order 01/26/2023 01/27/2023 01/28/2023 ceFAZolin (ANCEF) 3 g in sodium chloride 0.9 % 100 mL IVPB (COMPLETED) 3 g, Intravenous, at 200 mL/hr, supervisor wet end to O.R., 1 dose, First dose on [...] documented as of this encounter Care Teams Assistant Plant Manager Relationship Specialty Start Date End Date Clara Stanley APNP [address] [place] [address] PCP - General NURSE PRACTITIONER 06/01/18 Dominick Mccloud MD [facility]. [facility] [address] [place] [address] [place] Volunteer Services Specialist CARDIOVASCULAR DISEASE 03/28/19 Alexis Lopez MD [address] [facility] [address] [place] [address] PULMONARY DISEASE 10/21/19 documented as of this encounter
--- OUTSIDE RECORDS SUMMARY | 2024-03-02 03:19 | XMS_ITS | Encounter Summary ---
Author Organization [facility] Address [address] [place] [address]. [place], [place] [address] [place] [address] Care Team Providers Care Engineering Technology Instructor Name Role Phone Clara Stanley Primary Care Provider [phone] Dominick Mccloud MD Unavailable [phone] Alexis Lopez MD Unavailable [phone] Encounter Details Date Type Department Care Team (Latest Contact Info) Description 12/24/2023 Scan HEALTH INFO SRVCS Scanned, Doc Med Group Social [...] Contact Info) Description 03/28/2024 7:30 AM [facility] Hospital Encounter [facility] One Day Services [place], [place] [id number] Antwan Stone DPM [address], [place] [address] 03/28/2024 7:30 AM GARLAND 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 Anesthesia Event [facility] [place] [address] Shanelle Avila, COMMUNICATIONS SENIOR ASSOCIATE [address] [place] [address] 03/28/2024 7:30 AM GARLAND 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 - 03/28/2024 8:48 AM GARLAND 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 Surgery [facility] [place] [address] Antwan Stone, DPM [address], [place] [address] REMOVAL OF HARDWARE LEFT FOOT 04/05/2024 8:30 AM GARLAND 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 Office Visit [facility] THREE [facility], [facility] [address] [place], [place] [address] Dominick Mccloud MD Three [facility]. [facility] [address] [place], [place] [address] Scheduled Procedures Name Priority Associated Diagnoses Date/Ti me REMOVAL PLATE SCREW OR PIN SCHED BY FAX 02/08/24 [facility] PHONE ASSESS 03/28/2024 7:30 AM GARLAND 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 documented as of this encounter Visit Diagnoses Not on filedocumented in this encounter Additional Health Concerns Assessment Noted Time PHQ-9 Depression Total Score: 0 10/26/19 22 11:07 AM CDT documented as of this encounter Care Teams Engineering Technology Instructor Relationship Specialty Start Date End Date Clara Stanley APNP [facility] [place] [address] PCP - General NURSE PRACTITIONER 06/01/18 Dominick Mccloud MD [facility]. [facility] [address] [place] [address] [employer] Media Consultant CARDIOVASCULAR DISEASE 03/28/19 Alexis Lopez MD [address] [facility] [address] [place] [address] PULMONARY DISEASE 10/21/19 documented as of this encounter
--- OUTSIDE RECORDS SUMMARY | 2024-03-02 03:19 | XMS_ITS | Encounter Summary ---
Author Organization [facility] Address [address] [place] [address]. [place], [place] [address] [place] [address] Care Team Providers Care Chaplain Resident Name Role Phone Clara Stanley Primary Care Provider [phone] Dominick Mccloud MD Unavailable [phone] Alexis Lopez MD Unavailable Reason for Visit * Reason Comments Image (SCAN) Encounter Details Date Type Department Care Team (Latest Contact Info) Description 12/12/2022 Scan HEALTH INFO SRVCS Scanned, Doc Med Group Image (SCAN) Social History Tobacco Use Types Packs/Day Years [...] st Contact Info) Description 03/28/2024 7:30 AM [facility] Hospital Encounter [facility] [place] [address] Antwan Stone DPM [address], [place] [address] 03/28/2024 7:30 AM INDUSTRIAL ENGINEERING DIRECTOR Anesthesia Event [place] [address] Shanelle Avila, COURTROOM CLERK [address] [place] [address] 03/28/2024 7:30 AM INDUSTRIAL ENGINEERING DIRECTOR - 03/28/2024 8:48 AM INDUSTRIAL ENGINEERING DIRECTOR Surgery [place] [address] Antwan Stone, DIEGO [address], [place] [address] REMOVAL OF HARDWARE LEFT FOOT 04/05/2024 8:30 AM INDUSTRIAL ENGINEERING DIRECTOR Office Visit [place] [facility] THREE [facility], [facility] [address] [place], [place] [address] Dominick Mccloud MD Three [facility]. [facility] [address] [place] [address] Scheduled Procedures Name Priority Associated Diagnoses Date/Ti me REMOVAL PLATE SCREW OR PIN SCHED BY FAX 02/08/24 KAYLIE PHONE ASSESS 03/28/2024 7:30 AM INDUSTRIAL ENGINEERING DIRECTOR documented as of this encounter Procedures Procedure Name Priority Date/Time Associated Diagnosis Comments IMAGE GENERIC 12/12/2022 documented in this encounter Results * IMAGE GENERIC (12/12/2022) Anatomical Region Laterality Modality Other 12/12/2022 us Doc Med Group Scanned SCANNING Final Resu lt documented in this encounter Visit Diagnoses Not on filedocumented in this encounter Additional Health Concerns Assessment Noted Time PHQ-9 Depression Total Score: 0 10/26/19 22 11:07 AM CDT documented as of this encounter Care Teams Chaplain Resident Relationship Specialty Start Date End Date Clara Stanley APNP [address] [place] [address] PCP - General NURSE PRACTITIONER 06/01/18 Dominick Mccloud MD [facility] [address] [place] [address] Pitman Business Affairs Manager CARDIOVASCULAR DISEASE 03/28/19 Alexis Lopez MD [address] [facility] [address] [place] [address] PULMONARY DISEASE 10/21/19 documented as of this encounter
--- OUTSIDE RECORDS SUMMARY | 2024-03-02 03:19 | XMS_ITS | Encounter Summary ---
Author Organization [facility] Address [address] [place] [address]. [place], [place] [address] [place] [address] Care Team Providers Care Leather Grader Name Role Phone Clara Stanley Primary Care Provider [phone] Dominick Mccloud MD Unavailable [phone] Alexis Lopez MD Unavailable [phone] Encounter Details Date Type Department Care Team (Latest Contact Info) Description 09/29/2022 Travel Social History Tobacco Use Types Packs/Day [...] st Contact Info) Description 03/28/2024 7:[address] [facility] Hospital Encounter Health [place] [address] Antwan Stone DPM [address], [place] [address] 03/28/2024 7:30 AM MILLER HEAD ASSISTANT WET PROCESS Anesthesia Event [place] [address] Shanelle Avila, COPYING MACHINE REPAIRER [address] [place], [place] [address] 03/28/2024 7:30 AM MILLER HEAD ASSISTANT WET PROCESS - 03/28/2024 8:48 AM MILLER HEAD ASSISTANT WET PROCESS Surgery [place] [address] Antwan Stone, DPM [address], [place], [place] [address] REMOVAL OF HARDWARE LEFT FOOT 04/05/2024 8:30 AM MILLER HEAD ASSISTANT WET PROCESS Office Visit Darren Chaudhari-O'F allon [facility], [facility] [address] [place], [place] [address] Dominick Mccloud MD Three [facility]. [facility] [address] [place], [place] [address] Scheduled Procedures Name Priority Associated Diagnoses Date/Ti me REMOVAL PLATE SCREW OR PIN SCHED BY FAX 02/08/24 [facility] PHONE ASSESS 03/28/2024 7:30 AM MILLER HEAD ASSISTANT WET PROCESS documented as of this encounter Visit Diagnoses Not on filedocumented in this encounter Additional Health Concerns Assessment Noted Time PHQ-9 Depression Total Score: 0 10/26/19 22 11:07 AM CDT documented as of this encounter Care Teams Leather Grader Relationship Specialty Start Date End Date Clara Stanley APNP [address] [place] [address] PCP - General NURSE PRACTITIONER 06/01/18 Dominick Mccloud MD Three [facility]. [facility] [address] [place] [address] [employer] Cyber Incident Responder CARDIOVASCULAR DISEASE 03/28/19 Alexis Lopez MD [address] [facility] [address] [place] [address] PULMONARY DISEASE 10/21/19 documented as of this encounter
--- OUTSIDE RECORDS SUMMARY | 2024-03-02 03:19 | XMS_ITS | Encounter Summary ---
Author Organization [facility] Address [address] [place] [address]. [place], [place] [address] [place] [address] Care Team Providers Care Pipelines Laborer Name Role Phone Clara Stanley Primary Care Provider [phone] Dominick Mccloud MD Unavailable [phone] Alexis Lopez MD Unavailable [phone] Kip Del Rio MD Unavailable [phone] Encounter Details Date Type Department Care Team (Late st Contact Info) Description 12/30/2022 MyChart Message Enc [facility] Medical Group Family & Internal Medicine - [place] [address] [place] [address] Clara Stanley APNP [address] [place] [address] Faraz Social History Tobacco Use Types Packs/Day Years [...] on file documented as of this encounter Progress Notes * Jadyn Riley MA - 01/01/2023 7:55 AM CDTShelby Padilla MA 12/31/2022 3:41 PM CDT ----- Message ----- From: Kwaku Kulkarni Sent: 12/30/2022 4:37 PM CDT To: Clara Reed Nurse Subject: Saxconsuelo I don???t think a prior authorization was done. Can you do that? When I go on my InfoHubble yogesh it says itis an approved medication documented in this encounter Plan of Treatment Upcoming Encounters Date Type Department Care Team (Late st Contact Info) Description 03/28/2024 7:30 AM RENEWAL SPECIALIST Hospital Encounter [facility] [place] [address] Antwan Stone DPM [address] [place] [address] 03/28/2024 7:30 AM RENEWAL SPECIALIST Anesthesia [place] [address] Shanelle Avila, ANCILLARY SERVICES MANAGER [address] [place] [address] 03/28/2024 7:30 AM RENEWAL SPECIALIST - 03/28/2024 8:48 AM RENEWAL SPECIALIST Surgery [place] [address] Antwan Stone DPM [address] [place] [address] REMOVAL OF HARDWARE LEFT FOOT 04/05/2024 8:30 AM RENEWAL SPECIALIST Office Visit [place] THREE [facility], [facility] [address] [place] [address] Dominick Mccloud MD [facility]. [facility] [address] [place], [place] [address] Scheduled Procedures Name Priority Associated Diagnoses Date/Ti me REMOVAL PLATE SCREW OR PIN SCHED BY FAX 02/08/24 [facility] PHONE ASSESS 03/28/2024 7:30 AM RENEWAL SPECIALIST documented as of this encounter Visit Diagnoses Not on filedocumented in this encounter Additional Health Concerns Assessment Noted Time PHQ-9 Depression Total Score: 0 10/26/19 22 11:07 AM CDT documented as of this encounter Care Teams Pipelines Laborer Relationship Specialty Start Date End Date Clara Stanley APNP [address] [place] [address] PCP - General NURSE PRACTITIONER 06/01/18 Dominick Mccloud MD [facility]. [facility] [address] [place], [place] [address] [place] Lens Maker CARDIOVASCULAR DISEASE 03/28/19 Alexis Lopez MD [address] [facility] [address] [address] PULMONARY DISEASE 10/21/19 Kip Del Rio MD [address] [facility] [address] [place] [address] MEDICAL ONCOLOGY 02/24/24 documented as of this encounter
--- OUTSIDE RECORDS SUMMARY | 2024-03-02 03:19 | XMS_ITS | Encounter Summary ---
Author Organization [facility] Address [address] [place] [address]. [place], [place] [address] [place] [address] Care Team Providers Care Dyno Technician Name Role Phone Clara Stanley Primary Care Provider [phone] Dominick Mccloud MD Unavailable [phone] Alexis Lopez MD Unavailable [phone] Encounter Details Date Type Department Care Team (Latest Contact Info) Description 01/21/2024 Scan HEALTH INFO SRVCS Scanned, Doc Med [...] st Contact Info) Description 03/28/2024 7:30 AM [facility] Hospital Encounter [facility] One Day Services [place], [place] [phone] Antwan Stone DPM [address], [place] [address] 03/28/2024 7:30 AM LEAN SIX SIGMA SENIOR SPECIALIST Anesthesia Event [facility] [place] [address] Shanelle Avila, REIMBURSEMENT SPEC [address] [place] [address] 03/28/2024 7:30 AM LEAN SIX SIGMA SENIOR SPECIALIST - 03/28/2024 8:48 AM LEAN SIX SIGMA SENIOR SPECIALIST Surgery [facility] [place] [address] Antwan Stone, DPM [address], [place] [address] REMOVAL OF HARDWARE LEFT FOOT 04/05/2024 8:30 AM LEAN SIX SIGMA SENIOR SPECIALIST Office Visit [facility] THREE [facility], [facility] [address] [place], [place] [address] Dominick Mccloud MD Three [facility]. [facility] [address] [place], [place] [address] Scheduled Procedures Name Priority Associated Diagnoses Date/Ti me REMOVAL PLATE SCREW OR PIN SCHED BY FAX 02/08/24 [facility] PHONE ASSESS 03/28/2024 7:30 AM LEAN SIX SIGMA SENIOR SPECIALIST documented as of this encounter Visit Diagnoses Not on filedocumented in this encounter Additional Health Concerns Assessment Noted Time PHQ-9 Depression Total Score: 0 10/26/19 22 11:07 AM CDT documented as of this encounter Care Teams Dyno Technician Relationship Specialty Start Date End Date Clara Stanley APNP [facility] [place] [address] PCP - General NURSE PRACTITIONER 06/01/18 Dominick Mccloud MD [facility]. [facility] [address] [place] [address] [employer] Plumbing Foreman CARDIOVASCULAR DISEASE 03/28/19 Alexis Lopez MD [address] [facility] [address] [place] [address] PULMONARY DISEASE 10/21/19 documented as of this encounter
--- OUTSIDE RECORDS SUMMARY | 2024-03-02 03:19 | XMS_ITS | Encounter Summary ---
Author Organization [facility] Address [address] [place] [address]. [place], [place] [address] [place] [address] Care Team Providers Care Data Management Specialist Name Role Phone Clara Stanley Primary Care Provider [phone] Dominick Mccloud MD Unavailable [phone] Alexis Lopez MD Unavailable [phone] Encounter Details Date Type Department Care Team (Latest Contact Info) Description 03/03/2023 Scan HEALTH INFO SRVCS Scanned, Doc Med [...] st Contact Info) Description 03/28/2024 7:30 AM [facility] Hospital Encounter [facility] One Day Services [place], [place] [id number] Antwan Stone DPM [address], [place] [address] 03/28/2024 7:30 AM VERIFICATION CLERK Anesthesia Event [facility] [place] [address] Shanelle Avila, FISH TRAPPER [address] [place] [address] 03/28/2024 7:30 AM VERIFICATION CLERK - 03/28/2024 8:48 AM VERIFICATION CLERK Surgery [facility] [place] [address] Antwan Stone, DPM [address], [place] [address] REMOVAL OF HARDWARE LEFT FOOT 04/05/2024 8:30 AM VERIFICATION CLERK Office Visit [facility] THREE [facility], [facility] [address] [place], [place] [address] Dominick Mccloud MD Three [facility]. [facility] [address] [place], [place] [address] Scheduled Procedures Name Priority Associated Diagnoses Date/Ti me REMOVAL PLATE SCREW OR PIN SCHED BY FAX 02/08/24 [facility] PHONE ASSESS 03/28/2024 7:30 AM VERIFICATION CLERK documented as of this encounter Visit Diagnoses Not on filedocumented in this encounter Additional Health Concerns Assessment Noted Time PHQ-9 Depression Total Score: 0 10/26/19 22 11:07 AM CDT documented as of this encounter Care Teams Data Management Specialist Relationship Specialty Start Date End Date Clara Stanley APNP [facility]1 [place] [address] PCP - General NURSE PRACTITIONER 06/01/18 Dominick Mccloud MD [facility]. [facility] [address] [place] [address] Burns Freight Caller CARDIOVASCULAR DISEASE 03/28/19 Alexis Lopez MD [address] [facility] [address] [place] [address] PULMONARY DISEASE 10/21/19 documented as of this encounter
--- OUTSIDE RECORDS SUMMARY | 2024-03-02 03:19 | XMS_ITS | Encounter Summary ---
Author Organization [facility] Address [address] [place] [address]. [place], [place] [address] [place] [address] Care Team Providers Care Blow Torch Operator Name Role Phone Clara Stanley Primary Care Provider [phone] Dominick Mccloud MD Unavailable [phone] Alexis Lopez MD Unavailable [phone] Encounter Details Date Type Department Care Team (Latest Contact Info) Description 09/19/2022 Scan Gather.md INFO SRVCS Scanned, Doc Med Group Social [...] st Contact Info) Description 03/28/2024 7:30 AM [facility] Hospital Encounter [facility] [place] [address] Antwan Stone DPM [address], [place] [address] 03/28/2024 7:30 AM ACCIDENT EXAMINER Anesthesia Event [facility] [place] [address] Shanelle Avila, ROTARY FILTER OPERATOR 1 [place] [address] 03/28/2024 7:30 AM ACCIDENT EXAMINER - 03/28/2024 8:48 AM ACCIDENT EXAMINER Surgery [facility] [place] [address] Antwan Stone, DIEGO [address], [place] [address] REMOVAL OF HARDWARE LEFT FOOT 04/05/2024 8:30 AM ACCIDENT EXAMINER Office Visit Andersonisela Chaudhari-O'F allon THREE [facility], [facility] [address] [place] [address] Dominick Mccloud MD Three [facility]. [facility] [address] [place] [address] Scheduled Procedures Name Priority Associated Diagnoses Date/Ti me REMOVAL PLATE SCREW OR PIN SCHED BY FAX 02/08/24 [facility] PHONE ASSESS 03/28/2024 7:30 AM ACCIDENT EXAMINER documented as of this encounter Visit Diagnoses Not on filedocumented in this encounter Additional Health Concerns Assessment Noted Time PHQ-9 Depression Total Score: 0 10/26/19 22 11:07 AM CDT documented as of this encounter Care Teams Blow Torch Operator Relationship Specialty Start Date End Date Clara Stanley APNP [address] [place] [address] PCP - General NURSE PRACTITIONER 06/01/18 Dominick Mccloud MD [place]. [facility] [address] [place] [address] [place] Sales Record Clerk CARDIOVASCULAR DISEASE 03/28/19 Alexis Lopez MD [address] [facility] [address] [place] [address] PULMONARY DISEASE 10/21/19 documented as of this encounter
--- OUTSIDE RECORDS SUMMARY | 2024-03-02 03:19 | XMS_ITS | Encounter Summary ---
Author Organization [facility] Address [address] [place] [address]. [place], [place] [address] [place] [address] Care Team Providers Care Supervisor Cabinetmaker Name Role Phone Clara Stanley Primary Care Provider [phone] Dominick Mccloud MD Unavailable [phone] Alexis Lopez MD Unavailable [phone] Encounter Details Date Type Department Care Team (Latest Contact Info) Description 12/23/2022 Travel Social History Tobacco Use Types Packs/Day [...] st Contact Info) Description 03/28/2024 7:30 AM [facility] Hospital Encounter [facility] [place] [address] Antwan Stone DPM [address] [place] [address], [place] [address] 03/28/2024 7:30 AM SHIP SCALER Anesthesia Event [place] [address] Shanelle Avila, PIPE STRAIGHTENER 1 [place] [address] 03/28/2024 7:30 AM SHIP SCALER - 03/28/2024 8:48 AM SHIP SCALER Surgery [facility] [address] Antwan Stone, DPM [address], [address] [place] [address] REMOVAL OF HARDWARE LEFT FOOT 04/05/2024 8:30 AM SHIP SCALER Office Visit Darren Chaudhari-O'F allon THREE [facility], [facility] [address] [place] [address] Dominick Mccloud MD Three [facility]. [facility] [address] [place] [address] Scheduled Procedures Name Priority Associated Diagnoses Date/Ti me REMOVAL PLATE SCREW OR PIN SCHED BY FAX 02/08/24 [facility] PHONE ASSESS 03/28/2024 7:30 AM SHIP SCALER documented as of this encounter Visit Diagnoses Not on filedocumented in this encounter Additional Health Concerns Assessment Noted Time PHQ-9 Depression Total Score: 0 10/26/19 22 11:07 AM CDT documented as of this encounter Care Teams Supervisor Cabinetmaker Relationship Specialty Start Date End Date Clara Stanley APNP [address] [place] [address] PCP - General NURSE PRACTITIONER 06/01/18 Dominick Mccloud MD [facility]. [facility] [address] [place] [address] [facility] Consultant CARDIOVASCULAR DISEASE 03/28/19 Alexis Lopez MD [address] [facility] [address] [place] [address] PULMONARY DISEASE 10/21/19 documented as of this encounter
--- OUTSIDE RECORDS SUMMARY | 2024-03-02 03:19 | XMS_ITS | Encounter Summary ---
Author Organization [facility] Address [address] [place] [address]. [place] [address] [place] [address] Care Team Providers Care Valve Machine Operator Name Role Phone Lizeth Clara CARRINGTON Primary Care Provider [phone] Dominick Mccloud MD Unavailable [phone] Alexis Lopez MD Unavailable [phone] Reason for Visit * Reason Comments Hypertension 2 month follow up Encounter Details Date Type Department Care Team (Late st Contact Info) Description 04/01/2022 8:45 AM PROFESSOR OF PUBLIC ADMINISTRATION Office Visit [place] [facility]mar[facility] flowers THREE [facility], [facility] [address] [place] [address] Dominick Mccloud MD Three [facility]. [facility] [address] [place], [place] [id number] Hypertension (2 month follow up ) Social History Tobacco Use Types Packs/Day Years [...] Recorded In the last 10 days, have marlen de la cruz been in contact with someone who was confirmed or suspected to have Coronavirus/COVID-19? No / Unsure 04/01/2022 8:46 AM PROFESSOR OF PUBLIC ADMINISTRATION documented as of this encounter Last Filed Vital Signs Vital Sign Reading Time Taken Comments Blood Pressure 150/88 04/01/2022 8:49 AM PROFESSOR OF PUBLIC ADMINISTRATION Pulse 79 04/01/2022 8:49 AM PROFESSOR OF PUBLIC ADMINISTRATION Temperature - - Respiratory Rate - - Oxygen Saturation 97% 04/01/2022 8:49 AM PROFESSOR OF PUBLIC ADMINISTRATION Inhaled Oxygen Concentration - - Weight 165.6 kg (365 lb) 04/01/2022 8:49 AM PROFESSOR OF PUBLIC ADMINISTRATION Height 190.5 cm (6' 3 ) 04/01/2022 8:49 AM PROFESSOR OF PUBLIC ADMINISTRATION Body Mass Index 45.62 04/01/2022 8:49 AM PROFESSOR OF PUBLIC ADMINISTRATION documented in this encounter Progress Notes * Dominick Mccloud MD - 04/01/2022 8:45 AM CST Reason for Visit: Hypertension (2 month follow up ) History of Present Illness: Kwaku Kulkarni is a 56-year-old gentleman being seen today for followup of hypertension, dyslipidemia, dyspnea on exertion. His dyspnea on exertion remains largely stable, although he feels it hasperhaps improved slightly with Trelegy. He has not really tried Albuterol since he does not usuallyhave it with him. He also notes having a cough after exertion as well as a cough after certain foods, denies any GERD symptoms, but was started on a PPI. He has followup with his comic book writer in thenext few weeks as well as upcoming PFTs. As detailed below, he has undergone stress test and echo since his last visit without significant abnormalities. He does have sleep apnea, but has difficulty tolerating his CPAP machine. #[id number] /TAP ASSESSMENT AND PLAN: PROBLEM LIST: 1. Intracranial hypertension. 2. Hypertension. 3. Dyslipidemia. 4. GERD. 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 12/2020 recurrent paratracheal lymph node, s/p mediastinal XRT 02/2021 6. Varicose veins s/p Right stab phlebectomy 7. Possible LEONOR PLAN Dyspnea on exertion: No evidence cardiac etiology. I do recommend he try Nitroglycerin to see if it provides any relief and if so, we will consider further ischemic evaluation. He is following up with his comic book writer, and I will defer to him for further pulmonology management. Hypertension: Blood pressure is mildly elevated, but has previously been better controlled. I have asked him to monitor at home and keep us updated. Dyslipidemia: He remains on Pravastatin. As discussed previously, his 10-year cardiovascular risk is estimated at6.5% based on his LDL of 144, obtained 10/2021. He favored remaining on his current regimen. I will plan to see him back in 6 months unless issues arise in the interim. Thank you very much for allowing me to participate in the care of your patient. Please feel free tocontact me with any further questions or concerns. #[id number] /TAP/ASS DATA REVIEWED: 03/24/22 Treadmill nuclear stress 1. Clinically negative. 2. Electrocardiographically negative treadmill test for ischemia. 3. Adequate exercise capacity. 4. Morfin Treadmill Score is 6, which indicates low risk. 5. Blood pressure response was normal. 6. Scintigraphic images to follow. ?? Perfusion conclusion: 1. Excellent study quality. No [...] block. 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 He has no history of tobacco use, reports rare alcohol use, denies illicit substance use. FAMILY HISTORY: Significant for father who had coronary disease in his 60s. Medications: Current Outpatient Medications: ??? amLODIPine (NORVASC) 10 MG tablet, Take 1 tablet (10 mg total) by mouth nightly at bedtime. at bedtime, Disp: 90 tablet, Rfl: 3 ??? cetirizine (ZYRTEC) 10 MG tablet, Take 10 mg by mouth nightly at bedtime. , Disp: , Rfl: ??? fluticasone propionate 50 MCG/ACT nasal spray, 1 spray by Nasal route daily as needed. , Disp: , Rfl: ??? Bvokrotmwci-Irgldcrsk-Sovawd (TRELEGY ELLIPTA) 100-62.5-25 MCG/ACT AEROSOL POWDER, BREATH ACTIVATED, , Disp: , Rfl: ??? Multiple Vitamins-Minerals (MULTIVITAMIN ADULT OR), , Disp: , Rfl: ??? nitroglycerin (NITROSTAT) 0.4 MG SL tablet, Place 1 tablet (0.4 mg total) under the tongue every 5 (five) minutes as needed for Chest Pain (If 3 doses taken, call 911.). Maximum of 3 doses., Disp: 25 tablet, Rfl: 1 ??? pantoprazole EC (PROTONIX) 40 MG tablet, Take 40 mg by mouth daily., Disp: , Rfl: ??? pravastatin (PRAVACHOL) 20 MG tablet, Take 1 tablet (20 mg total) by mouth nightly at bedtime. at bedtime, Disp: 90 tablet, Rfl: 3 ??? vitamin C 1000 MG tablet, Take 1,000 mg by mouth daily., Disp: , Rfl: ??? vitamin D3, cholecalciferol, 1.25 MG (21611 UT) capsule, Take 50,000 Units by mouth weekly., Disp: , Rfl: No Known Allergies Past Medical History: Diagnosis Date ??? Adenomatous colon polyp ??? 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 Asthma ??? Depression with anxiety 12/12/2014 ??? GERD (gastroesophageal reflux disease) ??? 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 HLD (hyperlipidemia) ??? HTN (hypertension) ??? IIH (idiopathic intracranial hypertension) ??? Morbid obesity (CMS/HCC) 02/21/2015 ??? Non-small cell carcinoma of lung (CMS/HCC) s/p right lobectomy Past Surgical History: Procedure Laterality Date ??? APPENDECTOMY ??? BRONCHOSCOPY ??? COLONOSCOPY ??? COLONOSCOPY N/A 03/21/2022 COLONOSCOPY performed by Joe Medina, DO at [facility] ??? LUMBAR PUNCTURE 03/28/2019 ??? REMOVAL OF LUNG,LOBECTOMY Right 05/26/2019 partial lower lobectomy ??? TONSILLECTOMY Social History Tobacco Use ??? Smoking status: Never ??? Smokeless tobacco: Never Vaping Use ??? Vaping Use: Never used Substance Use Topics ??? Alcohol use: Yes Comment: 6 beers weekly ??? Drug use: No Family History Problem Relation Name Age of Onset ??? Cancer Mother bone ??? Heart Disease Father 65 Family Status Relation Name Status ??? Mother Alive, age 83y ??? Father Alive, age 86y Review of Systems Constitutional: Negative for recent [...] new or significant memory loss. Filed Vitals: 04/01/22 0849 BP: (!) 150/88 Pulse: 79 SpO2: 97% Weight: (!) 165.6 kg (365 lb) Height: 6' 3 (1.905 m) Body mass index is 45.62 kg/m??. Physical Exam Constitutional: No distress. HENT: [...] sound andNo murmur. Cardiovascular Comments: Diagnoses/Impression: 1. PEARCE (dyspnea on exertion) 2. Hypertension, benign 3. Mixed hyperlipidemia Referring Provider: No ref. provider found PCP: ZEB Nunn ESSOR OF PUBLIC ADMINISTRATION ESSOR OF PUBLIC ADMINISTRATION documented in this encounter Plan of Treatment Upcoming Encounters Date Type Department Care Team (Late st Contact Info) Description 03/28/2024 7:30 AM PROFESSOR OF PUBLIC ADMINISTRATION Hospital Encounter [facility] [place] [address] Antwan Stone DPM [address] [place] [address] 03/28/2024 7:30 AM PROFESSOR OF PUBLIC ADMINISTRATION Anesthesia Event [facility] [place] [address] Shanelle Avila, REAL ESTATE SITE ANALYST [address] [facility] [place] [address] 03/28/2024 7:30 AM PROFESSOR OF PUBLIC ADMINISTRATION - 03/28/2024 8:48 AM PROFESSOR OF PUBLIC ADMINISTRATION Surgery [place] [facility] ONE [facility] [place] [address] Antwan Stone DPM [address] [place] [address] REMOVAL OF HARDWARE LEFT FOOT 04/05/2024 8:30 AM PROFESSOR OF PUBLIC ADMINISTRATION Office Visit [facility]'F [facility] THREE [facility], [facility] [address] [place] [address] Dominick Mccloud MD Three [facility]. [facility] [address] [place], [place] [address] Scheduled Procedures Name Priority Associated Diagnoses Date/Ti me REMOVAL PLATE SCREW OR PIN SCHED BY FAX 02/08/24 [facility] PHONE ASSESS 03/28/2024 7:30 AM PROFESSOR OF PUBLIC ADMINISTRATION documented as of this encounter Visit Diagnoses Diagnosis PEARCE (dyspnea on exertion)- Primary Other dyspnea and respiratory abnormality Hypertension, benign Essential hypertension, benign Mixed hyperlipidemia Painful orthopaedic hardware (CMS/HCC)- Primary documented in this encounter Additional Health Concerns Assessment Noted Time PHQ-9 Depression Total Score: 0 10/26/19 22 11:07 AM CDT documented as of this encounter Care Teams Valve Machine Operator Relationship Specialty Start Date End Date Clara Stanley APNP [address] [place] [address] PCP - General NURSE PRACTITIONER 06/01/18 Dominick Mccloud MD [facility]. [facility] [address] [place] [address] [place] Adzing And Boring Machine Helper CARDIOVASCULAR DISEASE 03/28/19 Alexis Lopez MD [address] [facility] [address] [address] PULMONARY DISEASE 10/21/19 documented as of this encounter
--- OUTSIDE RECORDS SUMMARY | 2024-03-02 03:19 | XMS_ITS | Encounter Summary ---
Author Organization [facility] Address [address] [place] [address]. [place], [place] [address] [place] [address] Care Team Providers Care Log Handling Equipment Operator Name Role Phone Clara Stanley Primary Care Provider [phone] Dominick Mccloud MD Unavailable [phone] Alexis Lopez MD Unavailable [phone] Reason for Visit * Reason Comments Weight Problem Encounter Details Date Type Department Care Team (Late st Contact Info) Description 09/10/2023 1:00 PM CDT Office Visit [facility] Family & Internal Medicine [facility] [address] [place] [address] Clara Stanley APNP [address] [place], [place] [id number] Weight Problem Social History Tobacco Use Types Packs/Day Years [...] Sign Reading Time Taken Comments Blood Pressure 120/66 09/10/2023 1:04 PM CDT Pulse 86 09/10/2023 1:04 PM CDT Temperature 36.8 ??C (98.2 ??F) 09/10/2023 1:04 PM CD T Respiratory Rate 16 09/10/2023 1:04 PM CDT Oxygen Saturation 97% 09/10/2023 1:04 PM CDT Inhaled Oxygen Concentration - - Weight 157.6 kg (347 lb 6.4 oz) 09/10/2023 1:04 PM CDT Height 190.5 cm (6' 3 ) 09/10/2023 1:04 PM CDT Body Mass Index 43.42 09/10/2023 1:04 PM CDT documented in this encounter Progress Notes * ZEB Nunn - 09/10/2023 1:00 PM CDT Images from the original note were not included. [facility]NAL [facility]ICINE OFFICE VISIT Reason for Visit: Weight Problem History of Present Illness: 58 yo male here today to re discuss some weight loss. His BMI is over 45 - patient has tried severalfad diets to include counting calories and weight watchers. He seems to lose a little bit but then gained it back including more. He has been trying to reduce the carbs in his diet, work on increasing his activity lately. He is actually down 19 lbs since 03/2023. He is inquisitive about the GLP-1 plan and would like to try Wegovy or Saxenda if this is a possibility. Denies any family history or personal history of thyroid cancer or GI issues. He has diagnoses of HLD and HTN. ROS: Review of Systems Constitutional: Negative for chills and fever. Respiratory: Negative for cough and shortness of breath. Cardiovascular: Negative for chest pain and palpitations. Gastrointestinal: Negative for abdominal pain, diarrhea, nausea and vomiting. Neurological: Negative for dizziness and headaches. Medications: Current Outpatient Medications: amLODIPine (NORVASC) 10 MG tablet, TAKE 1 TABLET BY MOUTH EVERY NIGHT AT BEDTIME, Disp: 90 tablet, Rfl: 3 cetirizine (ZYRTEC) 10 MG tablet, Take 1 tablet (10 mg total) by mouth nightly at bedtime., Disp: ,Rfl: chlorthalidone (HYGROTEN) 25 MG tablet, Take 1 tablet (25 mg total) by mouth daily., Disp: 90 tablet, Rfl: 3 Ggfbqgherkr-Rqxzfmygg-Qlywju (TRELEGY ELLIPTA) 100-62.5-25 MCG/ACT AEROSOL POWDER, BREATH [...] at bedtime., Disp: 90 tablet, Rfl: 3 tirzepatide (ZEPBOUND) 2.5 MG/0.5ML injection, Inject 2.5 mg into the skin once a week. 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 ([facility]) Asthma ([facility]) Depression with anxiety 12/12/2014 GERD (gastroesophageal reflux disease) High grade neuroendocrine carcinoma ([facility]) 05/10/2019 HLD (hyperlipidemia) HTN (hypertension) IIH (idiopathic intracranial hypertension) Morbid obesity ([facility]) 02/21/2015 Non-small cell carcinoma of lung ([facility]) s/p right lobectomy LEONOR (obstructive sleep apnea) Surgical History: Past Surgical History: Procedure Laterality Date APPENDECTOMY BRONCHOSCOPY COLONOSCOPY N/A 03/21/2022 COLONOSCOPY performed by Joe Medina DO at [facility] GI COLONOSCOPY STOMA DX INCLUDING COLLJ SPEC SPX LUMBAR PUNCTURE 03/28/2019 REMOVAL OF LUNG,LOBECTOMY Right 05/26/2019 partial lower lobectomy TONSILLECTOMY Social History: Social History Socioeconomic History Marital status: Tobacco Use Smoking status: Never Smokeless tobacco: Never Vaping Use Vaping status: Never Used Substance and Sexual Activity Alcohol use: Yes Alcohol/week: 10.0 standard drinks of alcohol Types: 6 Cans of beer per week Comment: 6 beers weekly Drug use: No Sexual activity: Yes Partners: Female Other Topics Concern Caffeine Concern Yes Special Diet Yes Exercise No Seat Belt Yes Social History Narrative Family History: Family History Problem Relation Name Age of Onset Cancer Mother bone Heart Disease Father 65 PE: Physical Exam Vitals and nursing note reviewed. HENT: Head: Normocephalic and atraumatic. Eyes: General: No scleral icterus. Conjunctiva/sclera: Conjunctivae normal. Neck: Trachea: No tracheal deviation. Cardiovascular: Rate and Rhythm: Normal rate and regular rhythm. Heart sounds: Normal heart sounds. Pulmonary: Effort: Pulmonary effort is normal. No respiratory distress. Breath sounds: Normal breath sounds. No stridor. No wheezing. Musculoskeletal: General: No deformity. Normal range of motion. Cervical back: Normal range of motion and neck supple. Skin: General: Skin is warm and dry. Findings: No erythema. Neurological: Mental Status: He is alert and oriented to person, place, and time. Gait: Gait is intact. Psychiatric: Mood and Affect: Mood and affect normal. Filed Vitals: 09/10/23 1304 BP: 120/66 Pulse: 86 Resp: 16 Temp: 98.2 ??F (36.8 ??C) TempSrc: Skin SpO2: 97% Weight: (!) 157.6 kg (347 lb 6.4 oz) Height: 1.905 m (6' 3 ) Labs: Labs Reviewed Diagnoses/Impression: 1. Class 3 severe obesity due to excess calories with serious comorbidity and body mass index (BMI)of 40.0 to 44.9 in adult (CMS/HCC [facility]) tirzepatide (ZEPBOUND) 2.5 MG/0.5ML injection 2. Mixed hyperlipidemia Chronic tirzepatide (ZEPBOUND) 2.5 MG/0.5ML injection Recommendations and Plan: 1. Class 3 severe obesity due to excess calories with serious comorbidity and body mass index (BMI)of 40.0 to 44.9 in adult ([facility]/HCC [facility]) - tirzepatide (ZEPBOUND) 2.5 MG/0.5ML injection; Inject 2.5 mg into the skin once a week. Indications: Weight Loss Dispense: 2 mL; Refill: 5 Lifestyle and dietary changes conducive to weight loss discussed with patient today. We discussed treatment options. Patient opted to try GLP, Zepbound He is aware of risk, benefits and side effects. Will see patient back in 1 month after starting med 2. Mixed hyperlipidemia - tirzepatide (ZEPBOUND) 2.5 MG/0.5ML injection; Inject 2.5 mg into the skin once a week. Indications: Weight Loss Dispense: 2 mL; Refill: 5 Orders Placed This Encounter tirzepatide (ZEPBOUND) 2.5 MG/0.5ML injection Cannot display discharge medications since this is not an admission. PCP: ZEB Nunn 09/10/2023 documented in this encounter Plan of Treatment Upcoming Encounters Date Type Department Care Team (Late st Contact Info) Description 03/28/2024 7:30 AM [facility] Hospital Encounter [facility] [address] Antwan Stone DPM [address], [place] [address] 03/28/2024 7:30 AM UTILITY TENDER CARDING [place]esthesia [place] [address] Shanelle Avila, NEWSPAPER PEDDLER [address] [place] [address] 03/28/2024 7:30 AM UTILITY TENDER CARDING - 03/28/2024 8:48 AM UTILITY TENDER CARDING Surgery [facility] [place] [address] Antwan Stone, DPM [address], [place] [address] REMOVAL OF HARDWARE LEFT FOOT 04/05/2024 8:30 AM UTILITY TENDER CARDING Office Visit [facility] THREE [facility], [facility] [address] [place] [address] Dominick Mccloud MD Three [facility]. [facility] [address] [place] [address] Scheduled Procedures Name Priority Associated Diagnoses Date/Ti me REMOVAL PLATE SCREW OR PIN SCHED BY FAX 02/08/24 [facility] PHONE ASSESS 03/28/2024 7:30 AM UTILITY TENDER CARDING documented as of this encounter Visit Diagnoses Diagnosis Class 3 severe obesity due to excess calories with serious comorbidity and body mass index (BMI) of 40.0 to 44.9 in adult ([facility]/HCC)- Primary Mixed hyperlipidemia Painful orthopaedic hardware ([facility])- Primary documented in this encounter Additional Health Concerns Assessment Noted Time PHQ-9 Depression Total Score: 0 10/26/19 22 11:07 AM CDT documented as of this encounter Care Teams Log Handling Equipment Operator Relationship Specialty Start Date End Date Clara Stanley APNP [address] [place] [address] PCP - General NURSE PRACTITIONER 06/01/18 Dominick Mccloud MD [facility]. [facility] [address] [place] [address] Fely Machine Operator CARDIOVASCULAR DISEASE 03/28/19 Alexis Lopez MD [address] [facility] [address] [address] PULMONARY DISEASE 10/21/19 documented as of this encounter
--- OUTSIDE RECORDS SUMMARY | 2024-03-02 03:19 | XMS_ITS | Encounter Summary ---
Author Organization [facility] Address [address] [place] [address]. [place], [place] [address] [place] [address] Care Team Providers Care Commissioner Of Internal Revenue Name Role Phone Clara Stanley Primary Care Provider [phone] Dominick Mccloud MD Unavailable [phone] Alexis Lopez MD Unavailable [phone] Reason for Visit * Reason Onset Date Comments Prior Authorization 09/10/2023 Zepbound 2.5 mg Encounter Details Date Type Department Care Team (Late st Contact Info) Description 09/10/2023 Telephone [facility] Family & Internal Medicine - [place] [address] [place] [address] Clara Stanley APNP [address] [place] [address] Prior Authorization (Zepbound 2.5mg ) Social History Tobacco Use Types Packs/Day [...] as of this encounter Progress Notes * Teri Ewing MA - 09/22/2023 3:05 PM CDTAddended by: TERI EWING on: 09/22/2023 03:05 PM Modules accepted: Orders * ZEB Nunn - 09/22/2023 1:00 PM CDT Can we try and send over wegovy 0.25 mg once weekly? * Hailey Kathleen MA - 09/14/2023 8:58 AM CDT 09/14/23: PA Denied for Zepbound 2.5mg/la,rma * Hailey Kathleen MA - 09/10/2023 1:57 PM CDT 09/09/23: PA pending for Zepbound 2.5mg la,rma documented in this encounter Plan of Treatment Upcoming Encounters Date Type Department Care Team (Late st Contact Info) Description 03/28/2024 7:30 AM COMMUNITY HEALTH COORDINATOR Hospital Encounter [facility] [place] [address] Antwan Stone DPM [address], [address] [place], [place] [address] 03/28/2024 7:30 AM COMMUNITY HEALTH COORDINATOR Anesthesia Event [facility] [place], [place] [address] Shanelle Avila, DEBONE SUPERVISOR [address] [place] [address] 03/28/2024 7:30 AM COMMUNITY HEALTH COORDINATOR - 03/28/2024 8:48 AM COMMUNITY HEALTH COORDINATOR Surgery [facility] [place] [address] Antwan Stone, DPÁngel [address], [place] [address] REMOVAL OF HARDWARE LEFT FOOT 04/05/2024 8:30 AM COMMUNITY HEALTH COORDINATOR Office Visit Darren Hernandez'Marbella fleming THREE [facility], [facility] [address] [place] [address] Dominick Mccloud MD Three [facility]. [facility] [address] [place], [place] [address] Scheduled Procedures Name Priority Associated Diagnoses Date/Ti me REMOVAL PLATE SCREW OR PIN SCHED BY FAX 02/08/24 [facility] PHONE ASSESS 03/28/2024 7:30 AM COMMUNITY HEALTH COORDINATOR documented as of this encounter Visit Diagnoses Diagnosis Class 3 severe obesity due to excess calories with serious comorbidity and body mass index (BMI) of 40.0 to 44.9 in adult ([facility] HHS/HCC)- Primary BMI 40.0-44.9, adult ([facility]) Body Mass Index 40.0-44.9, adult Painful orthopaedic hardware ([facility])- Primary documented in this encounter Additional Health Concerns Assessment Noted Time PHQ-9 Depression Total Score: 0 10/26/19 22 11:07 AM CDT documented as of this encounter Care Teams Commissioner Of Internal Revenue Relationship Specialty Start Date End Date Clara Stanley APNP [address] [place] [address] PCP - General NURSE PRACTITIONER 06/01/18 Dominick Mccloud MD [facility]. [facility] [address] [place] [address] [place] Manager Creative CARDIOVASCULAR DISEASE 03/28/19 Alexis Lopez MD [address] [facility] [address] [place] [address] PULMONARY DISEASE 10/21/19 documented as of this encounter
--- OUTSIDE RECORDS SUMMARY | 2024-03-02 03:19 | XMS_ITS | Encounter Summary ---
Author Organization [facility] Address [address] [place] [address]. [place], [place] [phone] [place] [address] Care Team Providers Care Bench Grinder Name Role Phone Clara Stanley Primary Care Provider [phone] Dominick Mccloud MD Unavailable [phone] Alexis Lopez MD Unavailable [phone] Encounter Details Date Type Department Care Team (Latest Contact Info) Description 01/22/2023 12:26 PM PACK TRAIN DRIVER - 01/22/2023 1:11 PM [facility] Hospital Encounter [facility] One Day Services [place], [place] [id number] Antwan Stone, DIEGO [address] [facility] [place] [address] Discharge Disposition: Home or Self Care (Routine [...] Sign Reading Time Taken Comments Blood Pressure 143/81 01/22/2023 12:00 PM PACK TRAIN DRIVER normally 130s/80s at home Pulse 79 01/22/2023 12:00 PM PACK TRAIN DRIVER Temperature 36.6 ??C (97.9 ??F) 01/22/2023 1 2:00 PM PACK TRAIN DRIVER Respiratory Rate 18 01/22/2023 12:0 0 PM PACK TRAIN DRIVER Oxygen Saturation 99% 01/22/2023 12: 00 PM PACK TRAIN DRIVER Inhaled Oxygen Concentration - - Weight - - Height - - Body Mass Index - - documented in this encounter Medications at Time [...] mouth daily. vitamin D3, cholecalciferol, 1.25 MG (34678 UT) capsule Take 1 capsule (50,000 Units [...] 3 oxyCODONE-acetaminop hen (PERCOCET) 5-325 MG tabletIndications:Ac karuk Pain < 7 Day Supply Take 1-2 tablets by mouth every 4 (four) hours as needed for Pain. Indications: Acute Pain < 7 Day Supply 40 tablet 01/28/2023 4 pravastatin (PRAVACHOL) 40 MG tabletIndications:Mi xed hyperlipidemia Take 1 tablet (40 mg total) by mouth nightly at bedtime. 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 Stone. Patient fractured his left fifth metatarsal after pivoting wrong in 04/2022. His initial cleaner signs recommended conservative management with post-op boot and serial XRs, but the patient continues to havepersistent pain. He has no acute cardiac conditions and denies chest pain or shortness of breath. Patient denies history of chronic kidney disease, insulin dependent diabetes mellitus, ischemic heartdisease, heart failure, or history of CVA/TIA. Patient is able to ambulate a flight of stairs without chest pain or shortness of breath. Patient's Morfin Activity Status Index Score was greater than 25indicating functional capacity is moderate. REVIEW OF SYSTEMS A 14 point Review of Systems was taken and is negative other than that mentioned in the History of Present Illness. ALLERGY No Known Allergies MEDICATIONS (Not in a hospital admission) Current Outpatient Medications on File Prior to Encounter Medication Sig Dispense Refill amLODIPine (NORVASC) 10 MG tablet TAKE 1 TABLET BY MOUTH EVERY NIGHT AT BEDTIME 90 tablet 3 cetirizine (ZYRTEC) 10 MG tablet Take 1 tablet (10 mg total) by mouth nightly at bedtime. chlorthalidone (HYGROTEN) 25 MG tablet Take 0.5 tablets (12.5 mg total) by mouth daily. 30 tablet 2 Okgulsyxeol-Cyrsxbagn-Tblvjt (TRELEGY ELLIPTA) 100-62.5-25 MCG/ACT AEROSOL POWDER, BREATH ACTIVATED montelukast (SINGULAIR) 10 MG tablet Take 1 tablet (10 mg total) by mouth nightly at bedtime. Multiple Vitamins-Minerals (MULTIVITAMIN ADULT OR) Take 1 tablet by mouth daily. nitroglycerin (NITROSTAT) 0.[address] 1 tablet (0.4 mg total) under the tongue every 5 (five) minutes as needed for Chest Pain (If 3 doses taken, call 911.). Maximum of 3 doses. 25 tablet 1 pantoprazole EC (PROTONIX) 40 MG tablet Take 1 tablet (40 mg total) by mouth daily. pravastatin (PRAVACHOL) 40 MG tablet Take 1 tablet (40 mg total) by mouth nightly at bedtime. 90 tablet 2 vitamin C 1000 MG tablet Take 1 tablet (1,000 mg total) by mouth daily. vitamin D3, cholecalciferol, 1.25 MG (80574 UT) capsule Take 1 capsule (50,000 Units total) by mouth weekly. No current facility-administered medications on file prior to encounter. 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 ([facility]) Asthma Depression with anxiety 12/12/2014 GERD (gastroesophageal reflux disease) High grade neuroendocrine carcinoma ([facility]/HCC) ([facility]) 05/10/2019 HLD (hyperlipidemia) HTN (hypertension) IIH (idiopathic intracranial hypertension) Morbid obesity ([facility]/HCC) 02/21/2015 Non-small cell carcinoma of lung (HHS/HCC) ([facility]) s/p right lobectomy LEONOR (obstructive sleep apnea) Past Surgical History: Procedure Laterality Date APPENDECTOMY BRONCHOSCOPY COLONOSCOPY COLONOSCOPY N/A 03/21/2022 COLONOSCOPY performed by Joe Medina DO at [facility] LUMBAR PUNCTURE 03/28/2019 REMOVAL OF LUNG,LOBECTOMY Right 05/26/2019 partial lower lobectomy TONSILLECTOMY SOCIAL HISTORY Social History Socioeconomic History Marital status: Tobacco Use Smoking status: Never Smokeless tobacco: Never Vaping Use Vaping Use: Never used Substance and Sexual Activity Alcohol use: Yes Alcohol/week: 10.0 standard drinks Types: 6 Cans of beer per week Comment: 6 beers weekly Drug use: No Sexual activity: Yes Partners: Female Other Topics Concern Caffeine Concern Yes Special Diet Yes Exercise No Seat Belt Yes Social History Narrative FAMILY HISTORY Family History Problem Relation Name Age of Onset Cancer Mother bone Heart Disease Father 65 PHYSICAL EXAMINATION Vital 24 Hour Range Most Recent Value Temperature No data recorded Pulse No data recorded Respiratory No data recorded Blood Pressure No data recorded Pulse Oximetry No data recorded O2 No data recorded Vital Most Recent Value First Value Weight Height BMI N/A Physical Exam: -GENERAL: No acute distress, Morbidly obese -HEAD: Normocephalic, Atraumatic -EYES: Extraocular movements intact -ENT: Neck supple, Mucous membranes moist -LUNGS: Effort normal on RA, Clear to auscultation bilaterally, No wheezes, No crackles, No rhonchi -CV: Regular rate and rhythm, S1 and S2 normal -ABDOMEN: Soft, Non tender, Non distended, + BS -EXT: Left leg with post-op boot in place, No lower extremity edema -NEURO: Awake, alert, oriented x3, No gross neuro deficits -SKIN: No significant rashes or lesions LABS No results found for this or any previous visit (from the past 24 hour(s)). IMAGING & OTHER STUDIES No results found. No results found for this visit on 01/22/23. ASSESSMENT & PLAN Left fifth metatarsal fracture Kwaku Kulkarni is presenting for preoperative evaluation for ORIF of left fifth metatarsalfracture on 01/28/[address] Stone. He has no acute cardiac conditions. He has no risk factors based on the revised cardiac risk index. He is at low risk for a major adverse cardiac event based on combined surgical and patient characteristics. His functional capacity is moderate. Based on ACC/AHA guidelines, no further cardiac workup is indicated. Hypertension BP stable Continue amlodipine and chlorthalidone Hyperlipidemia Continue statin History of neuroendocrine carcinoma of right lower lobe S/p right lower lobectomy and mediastinal lymph node dissection in 05/[address] Flynn Asthma No wheezing, not currently in exacerbation Continue home inhalers and montelukast Follows with Dr. Lopez LEONOR Intermittent compliant with nocturnal CPAP GERD Continue PPI Morbid obesity BMI 43.75 Encouraged healthy lifestyle modifications KALPANA BANKS Cosigned by Imani Bauer MD at 01/22/2023 8:21 PM PACK TRAIN DRIVER TRAIN DRIVER TRAIN DRIVER documented in this encounter Plan of Treatment Upcoming Encounters Date Type Department Care Team (Late st Contact Info) Description 03/28/2024 7:30 AM PACK TRAIN DRIVER Hospital Encounter [facility] [place] [address] Antwan Stone DPM [address], [place] [address] 03/28/2024 7:30 AM PACK TRAIN DRIVER Anesthesia Event [facility] [place] [address] Shanelle Avila, LIME PLANT OPERATOR [address] [place] [address] 03/28/2024 7:30 AM PACK TRAIN DRIVER - 03/28/2024 8:48 AM PACK TRAIN DRIVER Surgery [facility] [place] [address] Antwan Stone DPM [address] [place] [address] REMOVAL OF HARDWARE LEFT FOOT 04/05/2024 8:30 AM PACK TRAIN DRIVER Office Visit [facility]-O'F allon THREE [facility], [address] [address] Dmoinick Mccloud MD [address] [address] Scheduled Procedures Name Priority Associated Diagnoses Date/Ti me REMOVAL PLATE SCREW OR PIN SCHED BY FAX 02/08/24 [facility] PHONE ASSESS 03/28/2024 7:30 AM PACK TRAIN DRIVER documented as of this encounter Visit Diagnoses Not on filedocumented in this encounter Additional Health Concerns Assessment Noted Time PHQ-9 Depression Total Score: 0 10/26/19 22 11:07 AM CDT documented as of this encounter Care Teams Bench Grinder Relationship Specialty Start Date End Date Clara Stanley APNP [address] [place] [address] PCP - General NURSE PRACTITIONER 06/01/18 Dominick Mccloud MD [facility] [address] [address] [place] Synthetic Staple Extruder CARDIOVASCULAR DISEASE 03/28/19 Alexis Lopez MD [address] [address] PULMONARY DISEASE 10/21/19 documented as of this encounter
--- OUTSIDE RECORDS SUMMARY | 2024-03-02 03:19 | XMS_ITS | Encounter Summary ---
Author Organization [facility] Address [address] [place] [address]. [place], [place] [address] [place] [address] Care Team Providers Care Mrb Engineer Name Role Phone Lizeth Clara CARRINGTON Primary Care Provider Dominick Mccloud MD Unavailable [phone] Alexis Lopez MD Unavailable [phone] Kip Del Rio MD Unavailable [phone] Encounter Details Date Type Department Care Team (Late st Contact Info) Description 04/12/2023 netomat Message Enc [place] [facility] THREE [facility], [facility] [address] [place] [address] Dominick Mccloud MD Three [facility]. [facility] [address] [place] [address] Blood Test Results Social History Tobacco Use Types Packs/Day [...] of this encounter Progress Notes * Cammie Avila RN - 04/13/2023 10:15 AM CST Please advise. T INSTRUCTOR documented in this encounter Plan of Treatment Upcoming Encounters Date Type Department Care Team (Late st Contact Info) Description 03/28/2024 7:30 AM PILOT INSTRUCTOR Hospital Encounter [facility] ONE [facility] [place] [address] Antwan Stone DPM [address], [place] [address] 03/28/2024 7:30 AM PILOT INSTRUCTOR Anesthesia [place] [address] Shanelle Avila, FRONT OFFICE REPRESENTATIVE [address] [place] [address] 03/28/2024 7:30 AM PILOT INSTRUCTOR - 03/28/2024 8:48 AM PILOT INSTRUCTOR Surgery [place] [address] Antwan Stone DPM [address], [place] [address] REMOVAL OF HARDWARE LEFT FOOT 04/05/2024 8:30 AM PILOT INSTRUCTOR Office Visit [facility] Chaudhari-O'F allon THREE [facility], [facility] [address] [place] [address] Dominick Mccloud MD Three [facility]. [facility] [address] [place] [address] Scheduled Procedures Name Priority Associated Diagnoses Date/Ti me REMOVAL PLATE SCREW OR PIN SCHED BY FAX 02/08/24 [facility] PHONE ASSESS 03/28/2024 7:30 AM PILOT INSTRUCTOR documented as of this encounter Visit Diagnoses Not on filedocumented in this encounter Additional Health Concerns Assessment Noted Time PHQ-9 Depression Total Score: 0 10/26/19 22 11:07 AM CDT documented as of this encounter Care Teams Mrb Engineer Relationship Specialty Start Date End Date Clara Stanley APNP [address] [place] [address] PCP - General NURSE PRACTITIONER 06/01/18 Dominick Mccloud MD [facility] [address] [place] [address] [place] Rough Rounder CARDIOVASCULAR DISEASE 03/28/19 Alexis Lopez MD 4600 [facility] [address] [address] PULMONARY DISEASE 10/21/19 Kip Del Rio MD 49[address] [facility] [address] [place] [address] MEDICAL ONCOLOGY 02/24/24 documented as of this encounter
--- OUTSIDE RECORDS SUMMARY | 2024-03-02 03:19 | XMS_ITS | Encounter Summary ---
Author Organization [facility] Address [address] [place] [address]. [place], [place] [address] [place] [address] Care Team Providers Care Lesson Instructor Name Role Phone Clara Stanley Primary Care Provider [phone] Dominick Mccloud MD Unavailable [phone] Alexis Lopez MD Unavailable [phone] Reason for Visit * Reason Comments Image (SCAN) Encounter Details Date Type Department Care Team (Latest Contact Info) Description 06/19/2022 Scan HEALTH INFO SRVCS Scanned, Doc Med [...] Upcoming Encounters Date Type Department Care Team ( st Contact Info) Description 03/28/2024 7:30 AM [facility] Hospital Encounter [facility] [place] [address] Antwan Stone, DIEGO [address], [place] [address] 03/28/2024 7:30 AM MANAGER AREA Anesthesia [place] [address] hSanelle Avila, LUBE WORKER [address] [place] [address] 03/28/2024 7:30 AM MANAGER AREA - 03/28/2024 8:48 AM MANAGER AREA Surgery [place] [address] Antwan Stone, DIEGO [address], [place] [address] REMOVAL OF HARDWARE LEFT FOOT 04/05/2024 8:30 AM MANAGER AREA Office Visit [place] [facility] THREE [facility], [facility] [address] [place] [address] Dominick Mccloud MD Three [facility]. [facility] [address] [place] [address] Scheduled Procedures Name Priority Associated Diagnoses Date/Ti me REMOVAL PLATE SCREW OR PIN SCHED BY FAX 02/08/24 [facility] PHONE ASSESS 03/28/2024 7:30 AM MANAGER AREA documented as of this encounter Procedures Procedure Name Priority Date/Time Associated Diagnosis Comments IMAGE GENERIC 06/19/2022 documented in this encounter Results * IMAGE GENERIC (06/19/2022) Anatomical Region Laterality Modality Other 06/19/2022 us Doc [facility] Scanned SCANNING Final Resu lt documented in this encounter Visit Diagnoses Not on filedocumented in this encounter Additional Health Concerns Assessment Noted Time PHQ-9 Depression Total Score: 0 10/26/19 22 11:07 AM CDT documented as of this encounter Care Teams Lesson Instructor Relationship Specialty Start Date End Date Clara Stanley APNP [address] [place] [address] PCP - General NURSE PRACTITIONER 06/01/18 Dominick Mccloud MD [facility] [address] [place] [address] [place] Gage Designer CARDIOVASCULAR DISEASE 03/28/19 Alexis Lopez MD [address] [facility] [address] [place] [address] PULMONARY DISEASE 10/21/19 documented as of this encounter
--- OUTSIDE RECORDS SUMMARY | 2024-03-02 03:19 | XMS_ITS | Encounter Summary ---
Author Organization [facility] Address [address] [place] [address]. [place], [place] [address] [place] [address] Care Team Providers Care Street Sweeper Name Role Phone Clara Stanley Primary Care Provider [phone] Dominick Mccloud MD Unavailable [phone] Alexis Lopez MD Unavailable [phone] Encounter Details Date Type Department Care Team (Latest Contact Info) Description 09/28/2023 Travel Social History Tobacco Use Types Packs/Day [...] 7:30 AM [facility] Hospital Encounter [facility] [place] [address] Antwan Stone DPM [address], [address] [place] [address] 03/28/2024 7:30 AM SECURITY SYSTEMS SPECIALIST Anesthesia Event [place] [address] Shanelle Avila, SOCIAL RESEARCH ASSISTANT [address] [place] [address] 03/28/2024 7:30 AM SECURITY SYSTEMS SPECIALIST - 03/28/2024 8:48 AM SECURITY SYSTEMS SPECIALIST Surgery [facility] [address] Antwan Stone, DPM [address], [address] [place] [address] REMOVAL OF HARDWARE LEFT FOOT 04/05/2024 8:30 AM SECURITY SYSTEMS SPECIALIST Office Visit Darren Chaudhari-O'F allon THREE [facility], [facility] [address] [place] [address] Dominick Mccloud MD Three [facility]. [facility] [address] [place] [address] Scheduled Procedures Name Priority Associated Diagnoses Date/Ti me REMOVAL PLATE SCREW OR PIN SCHED BY FAX 02/08/24 [facility] PHONE ASSESS 03/28/2024 7:30 AM SECURITY SYSTEMS SPECIALIST documented as of this encounter Visit Diagnoses Not on filedocumented in this encounter Additional Health Concerns Assessment Noted Time PHQ-9 Depression Total Score: 0 10/26/19 22 11:07 AM CDT documented as of this encounter Care Teams Street Sweeper Relationship Specialty Start Date End Date Clara Stanley APNP [address] [place] [address] PCP - General NURSE PRACTITIONER 06/01/18 Dominick Mccloud MD [facility]. [facility] [address] [place] [address] [facility] CARDIOVASCULAR DISEASE 03/28/19 Alexis Lopez MD [address] [facility] [address] [place] [address] [place] [address] PULMONARY DISEASE 10/21/19 documented as of this encounter
--- OUTSIDE RECORDS SUMMARY | 2024-03-02 03:19 | XMS_ITS | Encounter Summary ---
Author Organization [facility] Address [address] [place] [address]. [place] [address] [place] [address] Care Team Providers Care Workers' Compensation Hearings Officer Name Role Phone Clara Stanley Primary Care Provider [phone] Dominick Mccloud MD Unavailable [phone] Alexis Lopez MD Unavailable [phone] Reason for Visit * Reason Comments Hypertension 6 month follow up Encounter Details Date Type Department Care Team (Late st Contact Info) Description 09/29/2022 8:45 AM CDT Office Visit [place] [facility] THREE [facility], [facility] [address] [place], [place] [id number] Earnestine Perry, TJ Three [facility] [address] [place], [place] [id number] Hypertension (6 month follow up) Social History Tobacco [...] Sign Reading Time Taken Comments Blood Pressure 140/86 09/29/2022 8:47 AM CDT Pulse 76 09/29/2022 8:47 AM CDT Temperature - - Respiratory Rate - - Oxygen Saturation 96% 09/29/2022 8:47 AM CDT Inhaled Oxygen Concentration - - Weight 161 kg (355 lb) 09/29/2022 8:47 AM CDT Height 190.5 cm (6' 3 ) 09/29/2022 8:47 AM CDT Body Mass Index 44.37 09/29/2022 8:47 AM CDT documented in this encounter Progress Notes * Earnestine Perry NP - 09/29/2022 8:45 AM CDT Reason for Visit: Hypertension (6 month follow up) History of Present Illness: Kwaku Kulkarni is a 57-year-old male with a history of angina, hyperlipidemia. He is here today for scheduled follow-up visit. He is doing well overall from a cardiac standpoint. Denies any chest pain. He has ongoing dyspnea on exertion, but admits this has been stable. Symptoms improved with Trelegy. He has been diagnosed with asthma as well as allergies. He is considering an a new injectablefor his allergies. He is not reporting any chest pain, orthopnea, palpitations, lower extremity swelling. His blood pressure has been averaging 140 systolic. ASSESSMENT AND PLAN: PROBLEM LIST: 1. Intracranial hypertension. 2. Hypertension. 3. Dyslipidemia. 4. GERD. 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 12/2020 recurrent paratracheal lymph node, s/p mediastinal XRT 02/2021 6. Varicose veins s/p Right stab phlebectomy 7. Possible LEONOR PLAN Dyspnea on exertion: Symptoms rather stable. His previous cardiac work-up was unremarkable. Symptoms do improve with Trelegy. We will defer to pulmonology for now. He will call with progressive symptoms. Hypertension: Not well controlled. He is currently on amlodipine 10 mg daily. I am adding chlorthalidone 12.5 mg daily. I will repeat a BMP in 1 week. We will follow-up over the phone with trends of his blood pressure. Dyslipidemia: He continues on pravastatin. I will repeat a lipid panel. It is my pleasure to participate in the care of Kwaku Tan Shad. He will return for follow up in 6 months, earlier if needed. DATA REVIEWED: 03/24/22 Treadmill nuclear stress 1. [...] block. 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 He has no history of tobacco use, reports rare alcohol use, denies illicit substance use. FAMILY HISTORY: Significant for father who had coronary disease in his 60s. Medications: Current Outpatient Medications: ??? albuterol (PROVENTIL) (2.5 MG/3ML) 0.083% nebulizer solution, Inhale 3 mLs (2.5 mg total) into the lungs., Disp: , Rfl: ??? chlorthalidone (HYGROTEN) 25 MG tablet, Take 0.5 tablets (12.5 mg total) by mouth daily., Disp:30 tablet, Rfl: 2 ??? montelukast (SINGULAIR) 10 MG tablet, Take 1 tablet (10 mg total) by mouth nightly at bedtime.,Disp: , Rfl: ??? amLODIPine (NORVASC) 10 MG tablet, Take 1 tablet (10 mg total) by mouth nightly at bedtime. at bedtime, Disp: 90 tablet, Rfl: 3 ??? cetirizine (ZYRTEC) 10 MG tablet, Take 10 mg by mouth nightly at bedtime. , Disp: , Rfl: ??? Ddvjczoxczt-Zsdheipku-Hhmmze (TRELEGY ELLIPTA) 100-62.5-25 MCG/ACT AEROSOL POWDER, BREATH ACTIVATED, , Disp: , Rfl: ??? Multiple Vitamins-Minerals (MULTIVITAMIN ADULT OR), , Disp: , Rfl: ??? nitroglycerin (NITROSTAT) 0.4 MG SL tablet, Place 1 tablet (0.4 mg total) under the tongue every 5 (five) minutes as needed for Chest Pain (If 3 doses taken, call 911.). Maximum of 3 doses., Disp: 25 tablet, Rfl: 1 ??? Olopatadine-Mometasone (RYALTRIS) 665-25 MCG/ACT Suspension, by Nasal route 2 (two) times daily., Disp: , Rfl: ??? pantoprazole EC (PROTONIX) 40 MG tablet, Take 40 mg by mouth daily., Disp: , Rfl: ??? pravastatin (PRAVACHOL) 20 MG tablet, Take 1 tablet (20 mg total) by mouth nightly at bedtime. at bedtime, Disp: 90 tablet, Rfl: 3 ??? vitamin C 1000 MG tablet, Take 1,000 mg by mouth daily., Disp: , Rfl: ??? vitamin D3, cholecalciferol, 1.25 MG (06719 UT) capsule, Take 50,000 Units by mouth [...] new or significant memory loss. Filed Vitals: 09/29/22 0847 BP: (!) 140/86 Pulse: 76 SpO2: 96% Weight: (!) 161 kg (355 lb) Height: 6' 3 (1.905 m) Body mass index is 44.37 kg/m??. Physical Exam Constitutional: No distress. HENT: [...] sound andNo murmur. Cardiovascular Comments: Diagnoses/Impression: 1. Hypertension, benign LIPID PANEL COMPREHENSIVE METABOLIC PANEL Referring Provider: No ref. provider found PCP: ZEB Nunn documented in this encounter Plan of Treatment Upcoming Encounters Date Type Department Care Team (Late st Contact Info) Description 03/28/2024 7:30 AM [facility] Hospital Encounter [facility] [place] [address] Antwan Stone, DIEGO [address], [place] [address] 03/28/2024 7:30 AM LOAN DOCUMENTS CLOSER Anesthesia Event [facility] [place] [place] [address] Shanelle Avila, COMMAND AND CONTROL SYSTEMS INTEGRATOR [address] [place] [address] 03/28/2024 7:30 AM LOAN DOCUMENTS CLOSER - 03/28/2024 8:48 AM LOAN DOCUMENTS CLOSER Surgery [facility] [address] Antwan Stone, DIEGO [address], [place] [address] REMOVAL OF HARDWARE LEFT FOOT 04/05/2024 8:30 AM LOAN DOCUMENTS CLOSER Office Visit Darren Chaudhari-O'F lonnie THREE [facility], [address] [address] Dominick Mccloud MD [facility] [address] [place] [address] Scheduled Procedures Name Priority Associated Diagnoses Date/Ti me REMOVAL PLATE SCREW OR PIN SCHED BY FAX 02/08/24 [facility] PHONE ASSESS 03/28/2024 7:30 AM LOAN DOCUMENTS CLOSER documented as of this encounter Visit Diagnoses Diagnosis Hypertension, benign- Primary Essential hypertension, benign [place] (dyspnea on exertion) Other dyspnea and respiratory abnormality Pure hypercholesterolemia Painful orthopaedic hardware (CMS/HCC)- Primary documented in this encounter Additional Health Concerns Assessment Noted Time PHQ-9 Depression Total Score: 0 10/26/19 22 11:07 AM CDT documented as of this encounter Care Teams Workers' Compensation Hearings Officer Relationship Specialty Start Date End Date Clara Stanley APNP [address] [place] [address] PCP - General NURSE PRACTITIONER 06/01/18 Dominick Mccloud MD [facility]. [facility] [address] [place] [address] [place] Visual Supervisor CARDIOVASCULAR DISEASE 03/28/19 Alexis Lopez MD 46[address] [facility] [address] [place] [address] PULMONARY DISEASE 10/21/19 documented as of this encounter
--- OUTSIDE RECORDS SUMMARY | 2024-03-02 03:19 | XMS_ITS | Clinical Summary ---
Author Organization [facility] Address [address] [place] [address]. [place] [address] [place] [address] Care Team Providers Care Floor Sweeper Name Role Phone Clara Stanley Primary Care Provider Dominick Mccloud MD Unavailable [phone] Alexis Lopez MD Unavailable [phone] Kip Del Rio MD Unavailable [phone] Allergies No known active allergies Medications cetirizine (ZYRTEC) 10 MG tablet Take 1 tablet (10 mg total) by mouth daily. 015 Active Multiple Vitamins-Minerals (MULTIVITAMIN ADULT OR) Take 1 tablet by mouth daily. Active vitamin C 1000 MG tablet Take 1 tablet (1,000 mg total) by mouth daily. Active vitamin D3, cholecalciferol, 1.25 MG (73709 UT) capsule Take 1 capsule (50,000 Units total) by mouth weekly. Active Fluticasone-Umecl idin-Vilant (TRELEGY ELLIPTA) 100-62.5-25 MCG/ACT AEROSOL POWDER, BREATH ACTIVATED Inhale 1 Dose into the lungs daily. Active pantoprazole EC (PROTONIX) 40 MG tablet Take 1 tablet (40 mg total) by mouth daily. Active montelukast (SINGULAIR) 10 MG tablet Take 1 tablet (10 mg total) by mouth daily. 023 Active chlorthalidone (HYGROTEN) 25 MG tablet Take 1 tablet (25 mg total) by mouth daily. 90 tablet 3 01/16/2 024 Active semaglutide-weigh t management (WEGOVY) 0.25 mg/dose injection (PEN)Indications: Weight Loss Inject 0.25 mg into the skin once a week. Indications: Weight Loss 2 mL Active Additional Information Patient not taking.Reported on 02/22/2024 pravastatin (PRAVACHOL) 40 MG tabletIndications :Mixed hyperlipidemia TAKE (1) TABLET BY MOUTH AT BEDTIME. 90 tablet 2 Active Additional Information Patient taking differently: 40 mg Oral Daily, Reported on 02/22/2024 amLODIPine (NORVASC) 10 MG tabletIndications :Hypertension, benign TAKE (1) TABLET BY MOUTH AT BEDTIME. *VIAL* 30 tablet 2 Active Additional Information Patient taking differently: 10 mg Oral Daily, Reported on 02/22/2024 capecitabine (XELODA) 500 MG tablet Take 3 tablets by mouth 2 (two) times daily. CHEMO DRUG - On for 2 weeks and off for 2 weeks Active amLODIPine (NORVASC) 10 MG tabletIndications :Hypertension, benign TAKE 1 TABLET BY MOUTH EVERY NIGHT AT BEDTIME 90 tablet 3 023 2023 Discontinued Active Problems Problem Noted Date Diagnosed Date Body mass index (BMI) 45.0-49.9, adult ([facility]) 03/28/2020 Mild intermittent asthma without complication (H HS/HCC) 12/02/2019 Overview (03/28/2020): Last Assessment & Plan: The patient has a cough variant of asthma. He will continue with the Pepcid, Flonase and Symbicort. Last Assessment & Plan: The patient has a cough variant of asthma. He will continue with the Pepcid, Flonase and Symbicort. LEONRO (obstructive sleep apnea) 12/02/2019 Overview (03/28/2020): Last Assessment & Plan: The patient just received his auto titrating CPAP unit with a range of 5-20 cm water pressure. His DME is [facility]. Last Assessment & Plan: The patient just received his auto titrating CPAP unit with a range of 5-20 cm water pressure. His DME is [employer]. Snoring 08/31/2019 Overview (03/28/2020): Last Assessment & Plan: With his snoring and daytime hypersomnia, I have recommended proceeding with a nocturnal polysomnogram with a split night protocol if necessary and no MSLT. Cough, persistent 08/03/2019 Overview (03/28/2020): Added automatically from request for surgery [id number] Last Assessment & Plan: The patient's cough has essentially resolved with treatment of his cough variant of asthma with Symbicort, gastroesophageal reflux with Pepcid and Flonase for postnasal drip. I did tell him he could try stopping the Flonase and/or the Pepcid to see if the Symbicort alone would control the cough. Allergies 07/11/2019 LEIDA (acute kidney injury) 05/28/2019 Overview (03/28/2020): Last Assessment & Plan: Elevated Cr of 1.35. Hyponatremia to 127 Restart acetazolamide. AM BMP 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 Primary cancer of right lowe r lobe of lung ([facility]/HCC [facility]) 05/12/2019 Overview (03/28/2020): Added automatically from request for surgery [id number] Last Assessment & Plan: -54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 Diet: ADAT Pain control: Epidural, D/c'd UNIX DEVELOPER. POPM IS Bowel reg DVT prophylaxis CT to WS D/c'd gonzalez, voiding D/c'd A-line, d/c'd OU status Bronchoscopy today High grade neuroendocrine carcinoma ([facility]/HCC [facility]) 05/10/2019 Lung mass 04/27/2019 Overview (07/11/2019): Last Assessment & Plan: I will order a PET scan and full PFTs for the patient he will follow-up here in 1 week. Added automatically from request for surgery [id number] Solitary pulmonary nodule 04/27/2019 Overview (03/28/2020): Last Assessment & Plan: I will order a PET scan and full PFTs for the patient he will follow-up here in 1 week. Added automatically from request for surgery [id number] Added automatically from request for surgery [id number] Last Assessment & Plan: I will order a PET scan and full PFTs for the patient he will follow-up here in 1 week. IIH (idiopathic intracranial hypertension) 04/01 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 03/15/2019 Hypertension, benign 01/15/2017 Hyperlipidemia 02/21/2015 Morbid obesity ([facility]) 02/21/2015 Essential hypertension 02/21/2015 Depression with anxiety 12/12/2014 Insomnia 12/12/2014 Dry skin dermatitis 01/05/2014 Obesity 01/05/2014 Encounter for preventive health examination 03/2011 Overview (06/07/2018): appendectomytonsillectomy Resolved Problems Problem Noted Date Diagnosed Date Resolved Date Varicose veins of right lowe r extremity with pain 10/12/2019 10/31/2019 Overview (10/12/2019): Added automatically from request for surgery [id number] Acute non-recurrent frontal sinusitis 03/22/2019 04/04/2019 Abdominal pain 01/10/2015 06/07/2018 Atypical chest pain 12/12/2014 06/08/19 19 Blood pressure elevated with out history of HTN 12/12/2014 06/07/2018 Alcohol abuse 08/08/2014 06/07/2018 Overview (06/07/2018): social Caffeine use 08/08/2014 11/25/2019 Pain of great toe, right 02/10/2014 Other and unspecified hyperlipidemia 01/06/2014 08/02/2018 Acute pharyngitis 11/07/2013 06/07/2018 Cough 05/05/2012 06/07/2018 Itching 02/25/2012 06/07/2018 Encounters Date Type Department Care Team Description 02/22/2024 Travel 01/21/2024 Scan HEALTH INFO SRVCS Scanned, Doc Med Group 12/24/2023 Scan MG HEALTH INFO SRVCS Scanned, Doc Med Group from Last 3 Months Immunizations Name Administration Dates Next Due Fluzone 6 Months+ Quad (0.5 mL Prefilled Syringe ) 12/23/2022,03/28/2020 Influenza Adult (Generic) 12/09/2021 MODERNA COVID-19 (12+) MRNA, LNP-S, PF, 100 MCG/ 0.5 ML DOSE 07/07/2021 PFIZER COVID-19 (ORIGINAL FO RMULATION, PURPLE CAP) mRNA, LNP-S, PF, 30 MCG/0.3 ML DOSE 06/18/2020,05/27/2020 Pneumococcal (Pneumovax 23) 08/31/2019 Pneumococcal (Prevnar 20) 12/23/2022 Shingrix 02/22/2022,07/07/2021 Tdap (Generic) 01/28/2019 Family History Medical History Relation Comments Heart Disease Father Cancer Mother bone Relation Status Comments Father Alive Mother Alive Social History Tobacco Use Types Packs/Day Years [...] Sign Reading Time Taken Comments Blood Pressure 140/88 09/28/2023 9:09 AM CDT Pulse 82 09/28/2023 9:09 AM CDT Temperature 36.8 ??C (98.2 ??F) 09/10/2023 1:04 PM CD T Respiratory Rate 16 09/10/2023 1:04 PM CDT Oxygen Saturation 98% 09/28/2023 9:09 AM CDT Inhaled Oxygen Concentration - - Weight 147.4 kg (325 lb) 02/22/2024 3:33 PM MANDARIN CHINESE TEACHER Height 190.5 cm (6' 3 ) 02/22/2024 3:33 PM MANDARIN CHINESE TEACHER Body Mass Index 40.62 02/22/2024 3:33 PM MANDARIN CHINESE TEACHER Plan of Treatment Upcoming Encounters Date Type Department Care Team (Late st Contact Info) Description 03/28/2024 7:30 AM MANDARIN CHINESE TEACHER Hospital Encounter [facility] [place] [address] Antwan Stone, DIEGO [address], [place] [address] 03/28/2024 7:30 AM MANDARIN CHINESE TEACHER Anesthesia [place] [address] Shanelle Avila CNP [address] [place] [address] 03/28/2024 7:30 AM MANDARIN CHINESE TEACHER - 03/28/2024 8:48 AM MANDARIN CHINESE TEACHER Surgery [place] [address] Antwan Stone, DIEGO [address], [place] [address] REMOVAL OF HARDWARE LEFT FOOT 04/05/2024 8:30 AM MANDARIN CHINESE TEACHER Office Visit Darren Chaudhari-O'F allon [facility], [facility] [address] [place] [address] Dominick Mccloud MD Three [facility]. [facility] [address] [place] [address] Scheduled Procedures Name Priority Associated Diagnoses Date/Ti me REMOVAL PLATE SCREW OR PIN SCHED BY FAX 02/08/24 [facility] PHONE ASSESS 03/28/2024 7:30 AM MANDARIN CHINESE TEACHER Health Maintenance Due Date Last Done Comments Hepatitis B Vaccines (1 of 3 - 19+ 3-dose series) 1986 COVID-19 Vaccine ( season) 2023 07/07/2021, 06/18/2020, 05/27/2020 Influenza Adult (#1) 2023 12/23/2022, 12/09/2021, 03/28/2020 Annual Physical 12/24/2023 12/23/2022, 09/26/2019 DTaP, Tdap and Td Vaccines (2 - Td or Tdap) 01/28/2029 01/28/2019 Colorectal Cancer Screening Colonoscopy (10 Years) 03/21/2032 03/21/2022, 03/21/2022, 03/21/2022, Additional history exists Zoster Vaccines Completed 02/22/2022, 07/07/2021 Pneumococcal Vaccine: Pediatrics (0 to 5 Years) and At-Risk Patients (6 to 64 Years) Completed 12/23/2022, 08/31/2019 Hepatitis C Completed 04/10/2023 Meningococcal Vaccine Aged Out No kavon ana eligible based on patient's age to complete this topic RSV Immunizations Under 20 Months Aged Out No longer eligible based on patient's age to complete this topic Medical Devices Implanted Type Area Hot Plate Plywood Press Laborer Device Identifier Shelf Expiration Date Model / Serial / Lot 5th Metatarsal Plate Implanted:Qty: 1 on 01/28/2023 by Antwan Stone DPM at [facility] Plate Left: Foot [employer] [id number] / / 2.4 X 14mm Locking Screw Implanted:Qty: 1 on 01/28/2023 by Antwan Stone DPM at [facility] Screw Left: Foot [employer] [id number] / / 2.4 X 12mm Locking Screw Implanted:Qty: 3 on 01/28/2023 by Antwan Stone DPM at [facility] Screw Left: Foot [employer] [id number] / / 2.4 X 12 Non Locking Screw Implanted:Qty: 1 on 01/28/2023 by Antwan Stone DPM at [facility] Screw Left: Foot [employer] [id number] / / Augment Injectable Kit 1.5cc Implanted:Qty: 1 on 01/28/2023 by Antwan tSone DPM at [facility] Left: Foot 09/10/2024 [id number] / / [id number] Vitoss Bbtrauma Implanted:Qty: 1 on 01/28/2023 by Antwan Stone DPM at [facility] Left: Foot [employer] 11/11/2023 [id number] / / [id number] Description:5TH METATARSAL Procedures Procedure Name Priority Date/Time Associated Diagnosis Comments HEPATITIS C ANTIBODY W/RFX TO HCV RNA Routine 04/10/2023 10:14 AM MANDARIN CHINESE TEACHER Need for hepatitis C screening test COLONOSCOPY Routine 03/21/2022 6:29 AM MANDARIN CHINESE TEACHER from Last 3 Months or Most Recently Relevant to Health Maintenance Results * HEPATITIS C ANTIBODY W/RFX TO HCV RNA ([facility] ONLY) (04/10/2023 10:14 AM MANDARIN CHINESE TEACHER) HEPATITIS C AB Non Reactive Non Reacti [facility] 1 INTERPRETATION Comment [facility] 1 Comment: Not infected with HCV unless early or acute infection is suspected (which may be delayed in an immunocompromised individual), or other evidence exists to indicate HCV infection. 04/10/2023 10:1 4 AM MANDARIN CHINESE TEACHER 04/10/2023 Narrative [facility] - 04/11/2023 4:08 AM MANDARIN CHINESE TEACHER Performed at: ??01 - [facility] [address], [place], [place] ??[id number] Channel Partners: Xander Juárez PhD, Phone: ??[phone] us Clara [facility] Final Resul t [facility] [address] [place] [address] [facility] 1 * COLONOSCOPY (06/30/2018) us Documents Scanned SCANNING Final Result from Last 3 Months or Most Recently Relevant to Health Maintenance Insurance [employer] Care Teams Floor Sweeper Relationship Specialty Start Date End Date Clara Stanley APNP [address] [place] [address] PCP - General NURSE PRACTITIONER 06/01/18 Dominick Mccloud MD Three [facility] [address] [place] [address] [place] Deep Well Contractor CARDIOVASCULAR DISEASE 03/28/19 Alexis Lopez MD [address] [facility] [address] [place] [address] PULMONARY DISEASE 10/21/19 Kip Del Rio MD [address] [facility] [address] [place] [address] MEDICAL ONCOLOGY 02/24/24
--- OUTSIDE RECORDS SUMMARY | 2024-03-02 03:19 | XMS_ITS | Encounter Summary ---
Author Organization [facility] Address [address] [place] [address]. [place] [address] [place] [address] Care Team Providers Care Continuing Education Specialist Name Role Phone Clara Stanley Primary Care Provider [phone] Dominick Mccloud MD Unavailable [phone] Alexis Lopez MD Unavailable [phone] Reason for Visit * Reason Comments Hypertension 6 month follow up Encounter Details Date Type Department Care Team (Late st Contact Info) Description 09/28/2023 9:15 AM CDT Office Visit [facility] jacobson [facility], [email or web address] [address] [place], [place] [id number] Earnestine Perry, TJ Three [facility] [address] [place], [place] [id number] Hypertension (6 month follow up) Social History [...] Pulse 82 09/28/2023 9:09 AM CDT Temperature - - Respiratory Rate - - Oxygen Saturation 98% 09/28/2023 9:09 AM CDT Inhaled Oxygen Concentration - - Weight 154.2 kg (340 lb) 09/28/2023 9:09 AM CDT Height 190.5 cm (6' 3 ) 09/28/2023 9:09 AM CDT Body Mass Index 42.5 09/28/2023 9:09 AM CDT documented in this encounter Progress Notes * Earnestine Perry NP - 09/28/2023 9:15 AM CDT Reason for Visit: Hypertension (6 month follow up) History of Present Illness: Kwaku Kulkarni is a 58-year-old male with a history of hypertension and dyslipidemia being seen today for follow-up. He is doing well from a cardiac standpoint without any concerning symptoms. He admits that he feels much better with weight loss. His home blood pressures are well-controlled. He was recently notified of suspicious hepatic lesions and concern for metastatic disease. He is scheduled to see oncology at [place] on October 07 ASSESSMENT AND PLAN: PROBLEM LIST: 1. Intracranial hypertension. 2. Hypertension. 3. Dyslipidemia. 4. GERD. 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 12/2020 recurrent paratracheal lymph node, s/p mediastinal XRT 02/2021 6. Varicose veins s/p Right stab phlebectomy 7. Possible LEONOR PLAN Dyspnea on exertion: Denies complaints today, improving with weight loss Previous cardiac workup was reassuring, symptoms improved with Trelegy. Hypertension: Mildly elevated in the office today but he is anxious about his recent cancer diagnosis Better controlled at home No changes today Dyslipidemia: Continues on pravastatin He did not further discuss today. Would prefer he focus on cancer diagnosis. It is my pleasure to participate in the care of Kwaku Kulkarni. He will return for follow up in [...] block. 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 He has no history of tobacco use, reports rare alcohol use, denies illicit substance use. FAMILY HISTORY: Significant for father who had coronary disease in his 60s. Medications: Current Outpatient Medications: amLODIPine (NORVASC) 10 MG tablet, TAKE 1 TABLET BY MOUTH EVERY NIGHT AT BEDTIME, Disp: 90 tablet, Rfl: 3 cetirizine (ZYRTEC) 10 MG tablet, Take 1 tablet (10 mg total) by mouth nightly at bedtime., Disp: ,Rfl: chlorthalidone (HYGROTEN) 25 MG tablet, Take 1 tablet (25 mg total) by mouth daily., Disp: 90 tablet, Rfl: 3 Mdlzxtskile-Gxmxecidi-Irwdfq (TRELEGY ELLIPTA) 100-62.5-25 MCG/ACT AEROSOL POWDER, BREATH [...] , Rfl: pravastatin (PRAVACHOL) 40 MG tablet, TAKE (1) TABLET BY MOUTH AT BEDTIME., Disp: 90 tablet, Rfl: 2 semaglutide-weight management (WEGOVY) 0.25 mg/dose injection (PEN), Inject 0.25 mg into the skin once a week. 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 HLD (hyperlipidemia) HTN (hypertension) IIH (idiopathic intracranial hypertension) Morbid obesity ([facility]) 02/21/2015 Non-small cell carcinoma of lung ([facility]) s/p right lobectomy LEONOR (obstructive sleep apnea) Past Surgical History: Procedure Laterality Date APPENDECTOMY BRONCHOSCOPY COLONOSCOPY N/A 03/21/2022 COLONOSCOPY performed by Joe Medina DO at [facility] GI COLONOSCOPY STOMA DX INCLUDING COLLJ SPEC SPX LUMBAR PUNCTURE 03/28/2019 REMOVAL OF LUNG,LOBECTOMY Right 05/26/2019 partial lower lobectomy TONSILLECTOMY Social History Tobacco Use Smoking status: Never Smokeless tobacco: Never Vaping Use Vaping status: Never Used Substance Use Topics Alcohol use: Yes Alcohol/week: 10.0 standard drinks of alcohol Types: 6 Cans of beer per week Comment: 6 beers weekly Drug use: No Family History Problem Relation Name Age of Onset Cancer Mother bone Heart Disease Father 65 Family Status Relation Name Status Mother Alive, age 84y Father Alive, age 87y No partnership data on file Review of Systems Constitutional: Negative for recent [...] new or significant memory loss. Filed Vitals: 09/28/23 0909 BP: (!) 140/88 Pulse: 82 SpO2: 98% Weight: (!) 154.2 kg (340 lb) Height: 1.905 m (6' 3 ) Body mass index is 42.5 kg/m??. Physical Exam Constitutional: No distress. HENT: [...] sound andNo murmur. Cardiovascular Comments: Diagnoses/Impression: 1. Essential (primary) hypertension 2. Pure hypercholesterolemia Referring Provider: No ref. provider found PCP: ZEB Nunn documented in this encounter Plan of Treatment Upcoming Encounters Date Type Department Care Team (Late st Contact Info) Description 03/28/2024 7:30 AM [facility] Hospital Encounter [facility] [place] [address] Antwan Stone DPM [address], [place] [address] 03/28/2024 7:30 AM MEDICAL LABORATORY ASSISTANT Anesthesia [place] [address] Shanelle Avila, CHARTER COORDINATOR [address] [place] [address] 03/28/2024 7:30 AM MEDICAL LABORATORY ASSISTANT - 03/28/2024 8:48 AM MEDICAL LABORATORY ASSISTANT [place] [address] Antwan Stone, DPM [address] [place] [address] REMOVAL OF HARDWARE LEFT FOOT 04/05/2024 8:30 AM MEDICAL LABORATORY ASSISTANT Office Visit Darren Chaudhari-O'F allon [facility], [facility] [[email or web address] [address] [place] [address] Dominick Mccloud MD Three [facility]. [facility] [[email or web address]] [address] [place] [address] Scheduled Procedures Name Priority Associated Diagnoses Date/Ti me REMOVAL PLATE SCREW OR PIN SCHED BY FAX 02/08/24 [facility] PHONE ASSESS 03/28/2024 7:30 AM MEDICAL LABORATORY ASSISTANT documented as of this encounter Visit Diagnoses Diagnosis Essential (primary) hypertension- Primary Unspecified essential hypertension Pure hypercholesterolemia Shortness of breath Painful orthopaedic hardware (CMS/HCC)- Primary documented in this encounter Additional Health Concerns Assessment Noted Time PHQ-9 Depression Total Score: 0 10/26/19 22 11:07 AM CDT documented as of this encounter Care Teams Continuing Education Specialist Relationship Specialty Start Date End Date Clara Stanley APNP [address] [place] [address] PCP - General NURSE PRACTITIONER 06/01/18 Dominick Mccloud MD [facility]. [facility] [[email or web address]] [address] [place] [address] [employer] Folder CARDIOVASCULAR DISEASE 03/28/19 Alexis Lopez MD [address] [facility] [address] [place] [address] PULMONARY DISEASE 10/21/19 documented as of this encounter
--- OUTSIDE RECORDS SUMMARY | 2024-03-02 03:19 | XMS_ITS | Encounter Summary ---
Author Organization [facility] Address [address] [place] [address]. [place], [place] [address] [place] [address] Care Team Providers Care Salvage Diver Name Role Phone Clara Stanley Primary Care Provider [phone] Dominick Mccloud MD Unavailable [phone] Alexis Lopez MD Unavailable [phone] Encounter Details Date Type Department Care Team (Latest Contact Info) Description 03/24/2022 Travel Social History Tobacco Use Types Packs/Day [...] suspected to have Coronavirus/COVID-19? No / Unsure 03/24/2022 10:37 AM MATRIX BATH ATTENDANT documented as of this encounter Plan of Treatment Upcoming Encounters Date Type Department Care Team (Late st Contact Info) Description 03/28/2024 7:30 AM MATRIX BATH ATTENDANT Hospital Encounter [facility] [place] [address] Antwan Stone, DIEGO [address], [place] [address] 03/28/2024 7:30 AM MATRIX BATH ATTENDANT Anesthesia [place] [address] Shanelle Avila, TEAM MEMBER [address] [place] [address] 03/28/2024 7:30 AM MATRIX BATH ATTENDANT - 03/28/2024 8:48 AM MATRIX BATH ATTENDANT [place] [address] Antwan Stone, DIEGO [address], [place] [address] REMOVAL OF HARDWARE LEFT FOOT 04/05/2024 8:30 AM MATRIX BATH ATTENDANT Office Visit Darren Chaudhari-O'F allon THREE [facility], [facility] [address] [place] [address] Dominick Mccloud MD [address] [facility]. [facility] [address] [place] [address] Scheduled Procedures Name Priority Associated Diagnoses Date/Ti me REMOVAL PLATE SCREW OR PIN SCHED BY FAX 02/08/24 [facility] PHONE ASSESS 03/28/2024 7:30 AM MATRIX BATH ATTENDANT documented as of this encounter Visit Diagnoses Not on filedocumented in this encounter Additional Health Concerns Assessment Noted Time PHQ-9 Depression Total Score: 0 10/26/19 22 11:07 AM CDT documented as of this encounter Care Teams Salvage Diver Relationship Specialty Start Date End Date Clara Stanley APNP [address] [place] [address] PCP - General NURSE PRACTITIONER 06/01/18 Dominick Mccloud MD [facility] [address] [place] [address] [place] [employer] Metal Erector Apprentice CARDIOVASCULAR DISEASE 03/28/19 Alexis Lopez MD [address] [facility] [address] [address] PULMONARY DISEASE 10/21/19 documented as of this encounter
--- OUTSIDE RECORDS SUMMARY | 2024-03-02 03:19 | XMS_ITS | Encounter Summary ---
Author Organization [facility] Address [address] [place] [address]. [place], [place] [address] [place] [address] Care Team Providers Care Solid Die Cutter Name Role Phone Clara Stanley Primary Care Provider [phone] Dominick Mccloud MD Unavailable [phone] Alexis Lopez MD Unavailable [phone] Encounter Details Date Type Department Care Team (Latest Contact Info) Description 01/21/2023 Travel Social History Tobacco Use Types Packs/Day [...] st Contact Info) Description 03/28/2024 7:30 AM [facility] Hospital Encounter [facility] [place] [address] Antwan Stone DPM [address], [address] [place] [address] 03/28/2024 7:30 AM SUPERVISOR OF OPERATIONS Anesthesia [place] [address] Shanelle Avila, GERIATRIC CASE MANAGER 1 [place] [address] 03/28/2024 7:30 AM SUPERVISOR OF OPERATIONS - 03/28/2024 8:48 AM SUPERVISOR OF OPERATIONS [place] [address] Antwan Stone, DPM [address], [address] [place] [address] REMOVAL OF HARDWARE LEFT FOOT 04/05/2024 8:30 AM SUPERVISOR OF OPERATIONS Office Visit Darren Chaudhari-O'F allon THREE [facility], [facility] [address] [place] [address] Dominick Mccloud MD Three [facility]. [facility] [address] [place] [address] Scheduled Procedures Name Priority Associated Diagnoses Date/Ti me REMOVAL PLATE SCREW OR PIN SCHED BY FAX 02/08/24 [facility] PHONE ASSESS 03/28/2024 7:30 AM SUPERVISOR OF OPERATIONS documented as of this encounter Visit Diagnoses Not on filedocumented in this encounter Additional Health Concerns Assessment Noted Time PHQ-9 Depression Total Score: 0 10/26/19 22 11:07 AM CDT documented as of this encounter Care Teams Solid Die Cutter Relationship Specialty Start Date End Date Clara Stanley APNP [address] [place] [address] PCP - General NURSE PRACTITIONER 06/01/18 Dominick Mccloud MD [facility]. [facility] [address] [place] [address] Nahma Carbon Dioxide Operator CARDIOVASCULAR DISEASE 03/28/19 Alexis Lopez MD [address] [facility] [address] [place] [address] PULMONARY DISEASE 10/21/19 documented as of this encounter
--- OUTSIDE RECORDS SUMMARY | 2024-03-02 03:19 | XMS_ITS | Encounter Summary ---
Author Organization [facility] Address [address] [place] [address]. [place], [place] [address] [place] [address] Care Team Providers Care Sales Property Manager Name Role Phone Clara Stanley Primary Care Provider [phone] Dominick Mccloud MD Unavailable [phone] Alexis Lopez MD Unavailable [phone] Encounter Details Date Type Department Care Team (Latest Contact Info) Description 10/22/2023 Scan HEALTH INFO SRVCS Scanned, Doc Med [...] st Contact Info) Description 03/28/2024 7:30 AM [facility] Hospital Encounter [facility] One Day Services [place], [place] [id number] Antwan Stone DPM [address], [place] [address] 03/28/2024 7:30 AM INTERPRETER DEAF Anesthesia Event [facility] [place] [address] Shanelle Avila, UTILITY BILL COLLECTION CLERK [address] [place] [address] 03/28/2024 7:30 AM INTERPRETER DEAF - 03/28/2024 8:48 AM INTERPRETER DEAF Surgery [facility] [place] [address] Antwan Stone, DPM [address], [place] [address] REMOVAL OF HARDWARE LEFT FOOT 04/05/2024 8:30 AM INTERPRETER DEAF Office Visit Darren Cardiovascular-O'F allon THREE [facility], [facility] [address] [place], [place] [address] Dominick Mccloud MD Three [facility]. [facility] [address] [place], [place] [address] Scheduled Procedures Name Priority Associated Diagnoses Date/Ti me REMOVAL PLATE SCREW OR PIN SCHED BY FAX 02/08/24 [facility] PHONE ASSESS 03/28/2024 7:30 AM INTERPRETER DEAF documented as of this encounter Visit Diagnoses Not on filedocumented in this encounter Additional Health Concerns Assessment Noted Time PHQ-9 Depression Total Score: 0 10/26/19 22 11:07 AM CDT documented as of this encounter Care Teams Sales Property Manager Relationship Specialty Start Date End Date Clara Stanley APNP [facility] [place] [address] PCP - General NURSE PRACTITIONER 06/01/18 Dominick Mccloud MD [facility]. [facility] [address] [place] [address] [place] Dealership General Manager CARDIOVASCULAR DISEASE 03/28/19 Alexis Lopez MD [address] [facility] [address] [place] [address] PULMONARY DISEASE 10/21/19 documented as of this encounter
--- OUTSIDE RECORDS SUMMARY | 2024-03-02 03:19 | XMS_ITS | Encounter Summary ---
Author Organization [facility] Address [address] [place] [address]. [place], [place] [address] [place] [address] Care Team Providers Care Budget Officer Name Role Phone Clara Stanley Primary Care Provider [phone] Dominick Mccloud MD Unavailable [phone] Alexis Lopez MD Unavailable [phone] Reason for Visit * Reason Comments Image (SCAN) Encounter Details Date Type Department Care Team (Latest Contact Info) Description 05/11/2022 Scan HEALTH INFO SRVCS Scanned, Doc Med [...] st Contact Info) Description 03/28/2024 7:30 AM [facility] Hospital Encounter [facility] [place] [address] Antwan Stone, DIEGO [address], [place] [address] 03/28/2024 7:30 AM BROADBAND TECHNICIAN Anesthesia Event [facility] [place] [address] Shanelle Avila, SCRATCH POLISHER [address] [place] [address] 03/28/2024 7:30 AM BROADBAND TECHNICIAN - 03/28/2024 8:48 AM BROADBAND TECHNICIAN Surgery [facility] [place] [address] Antwan Stone, DIEGO [address] [place], [place] [address] REMOVAL OF HARDWARE LEFT FOOT 04/05/2024 8:30 AM BROADBAND TECHNICIAN Office Visit [facility] Fara-O'F allon THREE [facility] [place] [address] [place] [address] Dominick Mccloud MD Three [facility]. [facility] [address] [place] [address] Scheduled Procedures Name Priority Associated Diagnoses Date/Ti me REMOVAL PLATE SCREW OR PIN SCHED BY FAX 02/08/24 J[facility]AN[facility] PHONE ASSESS 03/28/2024 7:30 AM BROADBAND TECHNICIAN documented as of this encounter Procedures Procedure Name Priority Date/Time Associated Diagnosis Comments IMAGE GENERIC 05/11/2022 documented in this encounter Results * IMAGE GENERIC (05/11/2022) Anatomical Region Laterality Modality Other 05/11/2022 us Doc [facility] Scanned SCANNING Final Resu lt documented in this encounter Visit Diagnoses Not on filedocumented in this encounter Additional Health Concerns Assessment Noted Time PHQ-9 Depression Total Score: 0 10/26/19 22 11:07 AM CDT documented as of this encounter Care Teams Budget Officer Relationship Specialty Start Date End Date Clara Stanley APNP [address] [place] [address] PCP - General NURSE PRACTITIONER 06/01/18 Dominick Mccloud MD [facility] [place] [address] [place] [address] [place] Pastry Supervisor CARDIOVASCULAR DISEASE 03/28/19 Alexis Lopez MD [address] [facility] 200 [place] [address] PULMONARY DISEASE 10/21/19 documented as of this encounter
--- OUTSIDE RECORDS SUMMARY | 2024-03-02 03:19 | XMS_ITS | Encounter Summary ---
Author Organization [facility] Address [address] [place] [address]. [place], [place] [address] [place] [address] Care Team Providers Care Cnc Programmer Name Role Phone Clara Stanley Primary Care Provider [phone] Dominick Mccloud MD Unavailable [phone] Alexis Lopez MD Unavailable [phone] Reason for Visit * Reason Onset Date Comments Lab Results 04/15/2023 Encounter Details Date Type Department Care Team (Late st Contact Info) Description 04/15/2023 Telephone [facility] Medical Group Family & Internal Medicine [facility] [address] [place] [address] Clara Stanley APNP [address] [place] [address] Lab Results Social History Tobacco Use Types Packs/Day [...] as of this encounter Progress Notes * Shelby Padilla MA - 04/15/2023 9:40 AM CST ----- Message from ZEB Nunn sent at 04/14/2023 8:28 PM PAYROLL ACCOUNTING CLERK ----- Labs stable OLL ACCOUNTING CLERK documented in this encounter Plan of Treatment Upcoming Encounters Date Type Department Care Team (Late st Contact Info) Description 03/28/2024 7:30 AM PAYROLL ACCOUNTING CLERK Hospital Encounter [facility] [place] [address] Antwan Stone, DIEGO [address], [place] [address] 03/28/2024 7:30 AM PAYROLL ACCOUNTING CLERK Anesthesia Event [place] [address] Shanelle Avila, ANESTHESIOLOGY TECHNOLOGIST [address] [place] [address] 03/28/2024 7:30 AM PAYROLL ACCOUNTING CLERK - 03/28/2024 8:48 AM PAYROLL ACCOUNTING CLERK Surgery [place] [address] Antwan Stone DPM [address], [place] [address] REMOVAL OF HARDWARE LEFT FOOT 04/05/2024 8:30 AM PAYROLL ACCOUNTING CLERK Office Visit Darren Chaudhari-O'F allon THREE [facility] [place] [address] [place] [address] Dominick Mccloud MD Three [facility]. [facility] [address] [place] [address] Scheduled Procedures Name Priority Associated Diagnoses Date/Ti me REMOVAL PLATE SCREW OR PIN SCHED BY FAX 02/08/24 [facility] PHONE ASSESS 03/28/2024 7:30 AM PAYROLL ACCOUNTING CLERK documented as of this encounter Visit Diagnoses Not on filedocumented in this encounter Additional Health Concerns Assessment Noted Time PHQ-9 Depression Total Score: 0 10/26/19 22 11:07 AM CDT documented as of this encounter Care Teams Cnc Programmer Relationship Specialty Start Date End Date Clara Stanley APNP [address] [place] [address] PCP - General NURSE PRACTITIONER 06/01/18 Dominick Mccloud MD [facility] [address] [place] [address] [place] Juvenile Officer CARDIOVASCULAR DISEASE 03/28/19 Alexis Lopez MD [address] [facility] [address] [place] [address] PULMONARY DISEASE 10/21/19 documented as of this encounter
--- OUTSIDE RECORDS SUMMARY | 2024-03-02 03:19 | XMS_ITS | Encounter Summary ---
Author Organization [facility] Address [address] [place] [address]. [place] [address] [place] [address] Care Team Providers Care Brick Tender Name Role Phone Clara Stanley Primary Care Provider [phone] Dominick Mccloud MD Unavailable [phone] Alexis Lopez MD Unavailable [phone] Encounter Details Date Type Department Care Team (Late st Contact Info) Description 03/27/2022 Orders Only [facility] [address] [place] [facility], [facility] Social History Tobacco Use Types Packs/Day Years [...] Coronavirus/COVID-19? No / Unsure 03/24/2022 10:37 AM SHIPPING ROOM HELPER documented as of this encounter Plan of Treatment Upcoming Encounters Date Type Department Care Team (Late st Contact Info) Description 03/28/2024 7:30 AM SHIPPING ROOM HELPER Hospital Encounter [facility] [place] [address] Antwan Stone, DIEGO [address] [place], [place] [address] 03/28/2024 7:30 AM SHIPPING ROOM HELPER Anesthesia [place] [address] Shanelle Avila, RAEANN 1 [place] [address] 03/28/2024 7:30 AM SHIPPING ROOM HELPER - 03/28/2024 8:48 AM SHIPPING ROOM HELPER Surgery [place] [address] Antwan Stone, DIEGO [address] [place], [place] [address] REMOVAL OF HARDWARE LEFT FOOT 04/05/2024 8:30 AM SHIPPING ROOM HELPER Office Visit Darren Cardiovascular-O'F allon THREE [facility], [facility] [address] [place] [address] Dominick Mccloud MD Three [facility]. [facility] [address] [place] [address] Scheduled Procedures Name Priority Associated Diagnoses Date/Ti me REMOVAL PLATE SCREW OR PIN SCHED BY FAX 02/08/24 KAYLIE PHONE ASSESS 03/28/2024 7:30 AM SHIPPING ROOM HELPER documented as of this encounter Visit Diagnoses Not on filedocumented in this encounter Additional Health Concerns Assessment Noted Time PHQ-9 Depression Total Score: 0 10/26/19 22 11:07 AM CDT documented as of this encounter Care Teams Brick Tender Relationship Specialty Start Date End Date Clara Stanley APNP [address] [place] [address] PCP - General NURSE PRACTITIONER 06/01/18 Dominick Mccloud MD [place] [address] [place] [address] [place] Lunch Truck Driver CARDIOVASCULAR DISEASE 03/28/19 Alexis Lopez MD [address] [address] PULMONARY DISEASE 10/21/19 documented as of this encounter
--- OUTSIDE RECORDS SUMMARY | 2024-03-02 03:19 | XMS_ITS | Encounter Summary ---
Author Organization [facility] Address [address] [place] [address]. [place], [place] [address] [place] [address] Care Team Providers Care Sap Business Objects Developer Name Role Phone Clara Stanley Primary Care Provider [phone] Dominick Mccloud MD Unavailable [phone] Alexis Lopez MD Unavailable [phone] Reason for Visit * Auth/Cert (Routine) Specialty Diagnoses / Procedures Referred By Erik t Referred To Contact Diagnoses FIFTH METATARSAL FRACTURE Procedures OPEN REDUCTION INTERNAL FIXATION FIFTH METATARSAL FRACTURE LEFT FOOT Antwan Stone DPM [address] [place] [address] Phone: tel: fax: Referral ID Status Reason Start Date Expiration Date Visits Re quested Visits Authorized [id number] 1 1 Encounter Details Date Type Department Care Team (Late st Contact Info) Description 01/28/2023 7:28 AM RENEWABLE ENERGY DIVISION MANAGER Anesthesia Event [place] [address] Ernesto Norton MD [address] [place] [address] [address] [place] [address] Shanelle Avila CNP [address] [place] [address] Anesthesia Record Procedure Summary Procedure Name Responsible Anesthesiologist Anesthesia Start Time Anesthesia Stop Time OPEN REDUCTION INTERNAL FIXATION FIFTH METATARSAL FRACTURE LEFT FOOT (Left: Foot) Ernesto Norton MD 01/28/23 0728 01/28/23 08 Events Date Time Event Comment 01/28/2023 0629 0629 AN Anesthesia Prepped 0708 AN GROCERY PACKER Prepped 0728 An Start Patient ID and consent checked and patient reassessed. 0728 An Start Data 0730 Preoxygenation 0733 An Induction The patient was reevaluated immediately before moderate or deep sedation use and before anesthesia induction. 0734 An LMA 0738 Anesthesia Ready 0746 An Tourn Inflated 250 mm Hg left lower extremity 0813 An Emergence 0814 An Tourn Deflated 28 minutes 0815 LMA Removed 0816 Face Mask Applied 0819 an stop data 0827 Post Anesthetic Care Handoff I completed my handoff to the receiving nurse during which we: 1. Identified the patient 2. Identified the responsible provider 3. Reviewed the pertinent medical history 4. Discussed the surgical course 5. Reviewed intra-op anesthesia management and issues during anesthesia 6. Set expectations for post-procedure period 7. Allowed opportunity for questions and acknowledgement of understanding. 0827 An Stop Meds Name Total fentaNYL (SUBLIMAZE) 100 mcg/2 mL inject ion 100 mcg ceFAZolin (ANCEF) 3 g in sodium chloride 0.9 % 100 mL IVPB 3 g propofol (DIPRIVAN) 200 mg/20 mL injecti on 250 mg midazolam 2 mg/2 mL injection 2 mg lidocaine (PF) (XYLOCAINE) 2% injection 100 mg dexamethasone (DECADRON) injection 8 mg ondansetron (ZOFRAN) 4 mg/2 mL injection 4 mg glycopyrrolate (ROBINUL) injection 0.1 m g lactated ringers infusion 400 mL * Agents Name O2 Air Inspired Sevoflurane Sevoflurane * Blood No blood administrations on file. Lines, Drains, and Airways Type Details Placement Removal Peripheral IV Placement Date: 01/28/23; Placement Time: 629; Placed Outside of This Facility?: No; Size: 20 G; Orientation: Right; Location: Forearm; Site Prep: Chlorhexidine; Local Anesthetic: None; Insertion attempts: 1; Ultrasound-guided Placement?: No; Patient Tolerance: Tolerated well; Removal Date: 01/28/23; Removal Time: 1000; Removal Reason: Patient Discharged 01/28/23629 by Beba Velasquez RN 01/28/23 1000 by Florence Estrada RN Supraglottic Airway Placement Date: 01/28/23; Placement Time: 0734; Airway Device: LMA (i-gel); LMA Size: 5 (i-gel); Placed Outside of This Facility?: No; Placed By: ALDO; Style: Other (i-gel); Insertion Attempts:1; Placement Verified By: Capnography, Chest Rise; Extubation Assessment: Suctioned, Tolerated well, Patient spontaneously breathing, Deep breathes w/equal chest movements, Atraumatic; Removal Date: 01/28/23; Removal Time: 0815; Removal Person: GROCERY PACKER; Removal Reason: End of Case 01/28/23 0734 by Jadyn Keslser CRNA 01/28/23 0815 by Jadyn Kessler CRNA Surgical/Incision 01/28/23; 0822; Surg ical Wound; Foot; Left; sutures, xeroform, 4x4, kerlix, webril, splint, URBAN wrapfoot propped on pillow; 01/28/23; 1234 01/28/23 0822 by Cong Marks RN 01/28/23 1234 by Automatic Discharge Provider documented in this encounter Social History Tobacco [...] on file documented as of this encounter OR Notes * Anesthesia Postprocedure Evaluation - Ernesto Norton MD - 01/28/2023 9:38 AM RENEWABLE ENERGY DIVISION MANAGER Anesthesia Post-op Note Kwaku Kulkarni Procedure(s): OPEN REDUCTION INTERNAL FIXATION FIFTH METATARSAL FRACTURE LEFT FOOT (Left: Foot) Anesthesia type: general Vitals: 01/28/23914 BP: (!) 150/89 Vitals: 01/28/23914 Pulse: 73 Vitals: 01/28/23914 Resp: 16 Vitals: 01/28/23 0900 Temp: 36.6 ??C Vitals: 01/28/23914 SpO2: 96% Patient Location: Phase II/Outpatient Level of Consciousness: awake, oriented and alert Pain Management: adequate analgesia Airway Patency: patent Respiratory Status: acceptable Cardiovascular Status: acceptable, blood pressure returned to baseline and stable Post-Op Nausea: none Postoperative Hydration: euvolemic There were no known notable events for this encounter. WABLE ENERGY DIVISION MANAGER * Anesthesia Preprocedure Evaluation - Ernesto Norton MD - 01/28/2023 6:17 AM RENEWABLE ENERGY DIVISION MANAGER Anesthesia ROS/MED History Reviewed: Patient summary , Nursing notes , ECG, Family history anesthesia, Anesthesia history , Medications , Labs , Images/Studies Pre-Anesthetic State: alert, awake and responds appropriately Pulmonary (+) sleep apnea, asthma Cardiovascular (+) hypertension, hyperlipidemia Neuro/Psych (+) depression Substance Use (+) alcohol use, weekly, 5-6 GI/Hepatic/Renal (+) GERD Endo/Other (+) obese, (Morbid), cancer, (surgical resection) GENERAL COMMENTS No Known Allergies Past Medical History: No date: Adenomatous colon polyp No date: 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) No date: Asthma 12/12/2014: Depression with anxiety No date: GERD (gastroesophageal reflux disease) 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/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) No date: HLD (hyperlipidemia) No date: HTN (hypertension) No date: IIH (idiopathic intracranial hypertension) 02/21/2015: Morbid obesity (CMS/HCC) No date: Non-small cell carcinoma of lung (HHS/HCC) (CMS/HCC) Comment: s/p right lobectomy No date: LEONOR (obstructive sleep apnea) Past Surgical History: No date: APPENDECTOMY No date: BRONCHOSCOPY No date: COLONOSCOPY 03/21/2022: COLONOSCOPY; N/A Comment: COLONOSCOPY performed by Joe Medina DO at [facility] 03/28/2019: LUMBAR PUNCTURE 05/26/2019: REMOVAL OF LUNG,LOBECTOMY; Right Comment: partial lower lobectomy No date: TONSILLECTOMY NPO Status: Physical Evaluation Airway Mallampati: III TM Distance: >3 FB Neck ROM: normal Dental Pulmonary Pulmonary exam normal Breath sounds clear to auscultation Cardiovascular Rhythm: regular Rate: normal Cardiovascular exam normal Other findings: Blood pressure 137/86, pulse 78, temperature 36.8 ??C, temperature source Temporal,resp. rate 16, weight (!) 162.7 kg (358 lb 11 oz), SpO2 95 %. No results for input(s): WBC , RBC , HGB , HCT , PLT , NA , K , CL , CO2 , AGAP , BUN , CR , BUNCREATININ , GFRNON , GFR , GLU , CA in the last 72 hours. STOP-Bang Assessment: Do you snore loudly?: 0 Do you often feel tired or fatigued after your sleep?: 0 Has anyone ever observed you stop breathing in your sleep?: 0 Do you have or are you being treated for high blood pressure?: 1 Recent BMI (Calculated): 45.3 Is BMI greater than 35 kg/m2?: 1=Yes Age older than 50 years old?: 1=Yes Is your neck circumference greater than 17 inches (Male) or 16 inches (Female)?: 1 Gender - Male: 1=Yes STOP-Bang Total Score: 5 Anesthesia Plan ASA 3 Intravenous Induction Anesthesia type: general Plan for Airway: ETT and LMA Plan for Post-op Pain Plan: oral pain medication, IV analgesics and as per surgeon Discussed potential risks of General Anesthesia including but not limited to corneal abrasion, visual impairment or visual loss, mouth injury, dental damage, sore throat, hoarseness, esophageal injury, awareness under anesthesia, nerve injury due to positioning, aspiration, pneumonia, stroke, cardiac event, adverse drug reactions and . Informed Consent Anesthetic plan and risks discussed with patient of whom consent was obtained. . WABLE ENERGY DIVISION MANAGER documented in this encounter Plan of Treatment Upcoming Encounters Date Type Department Care Team (Late st Contact Info) Description 03/28/2024 7:30 AM RENEWABLE ENERGY DIVISION MANAGER Hospital Encounter [facility] [place] [address] Antwan Stone, DIEGO [address], [place] [address] 03/28/2024 7:30 AM RENEWABLE ENERGY DIVISION MANAGER Anesthesia Event [facility] [place] [address] Shanelle Avila, FRUIT SHIPPER [address] [place] [address] 03/28/2024 7:30 AM RENEWABLE ENERGY DIVISION MANAGER - 03/28/2024 8:48 AM RENEWABLE ENERGY DIVISION MANAGER Surgery [place] [address] Antwan Stone, DIEGO [address] [place] [address] REMOVAL OF HARDWARE LEFT FOOT 04/05/2024 8:30 AM RENEWABLE ENERGY DIVISION MANAGER Office Visit Darren Chaudhari-O'F allon THREE [facility], [facility] [address] [place] [address] Dominick Mccloud MD Three [facility]. [facility] [address] [place] [address] Scheduled Procedures Name Priority Associated Diagnoses Date/Ti me REMOVAL PLATE SCREW OR PIN SCHED BY FAX 02/08/24 KAYLIE PHONE ASSESS 03/28/2024 7:30 AM RENEWABLE ENERGY DIVISION MANAGER documented as of this encounter Visit Diagnoses Not on filedocumented in this encounter Administered Medications Inactive Administered Medications - up to 3 most recent administrations Medication Order MAR Action Action Date Dose Rate Site ceFAZolin (ANCEF) 3 g in sodium chloride 0.9 % 100 mL IVPB 3 g, Intravenous, at 200 mL/hr, housecalls nurse to O.R., 1 dose, First dose on Thu01/28/23 at 0615, Pre-OpIndications:Nondisplaced fracture of fifth left metatarsal bone with delayed healing New Bag 01/28/2023 7:38 AM RENEWABLE ENERGY DIVISION MANAGER 3 g dexamethasone (DECADRON) injection Intravenous, PRN, Starting on Thu01/28/23 at 0744, Until Thu01/28/23 at 0827, Anesthesia Intra-Op Given 01/28/2023 7:44 AM RENEWABLE ENERGY DIVISION MANAGER 8 mg fentaNYL (SUBLIMAZE) injection Intravenous, PRN, Starting on Thu01/28/23 at 0738, Until Thu01/28/23 at 0827, Anesthesia Intra-Op Given 01/28/2023 8:21 AM RENEWABLE ENERGY DIVISION MANAGER 25 mcg Given 01/28/2023 7:40 AM RENEWABLE ENERGY DIVISION MANAGER 25 mcg Given 01/28/2023 7:38 AM RENEWABLE ENERGY DIVISION MANAGER 50 mcg glycopyrrolate (ROBINUL) injection Intravenous, PRN, Starting on Thu01/28/23 at 0803, Until Thu01/28/23 at 0827, Anesthesia Intra-Op Given 01/28/2023 8:03 AM RENEWABLE ENERGY DIVISION MANAGER 0.1 mg lactated ringers infusion at 10 mL/hr, Intravenous, Continuous, Starting on Thu01/28/23 at 0645, Until Thu01/28/23 at 1234, Infuse at TKO rate, Pre-Op New Bag 01/28/2023 7:28 AM RENEWABLE ENERGY DIVISION MANAGER lidocaine (PF) (XYLOCAINE) 2 % injection Intravenous, PRN, Starting on Thu01/28/23 at 0733, Until Thu01/28/23 at 0827, Anesthesia Intra-Op Given 01/28/2023 7:33 AM RENEWABLE ENERGY DIVISION MANAGER 100 mg midazolam (VERSED) injection Intravenous, PRN, Starting on Thu01/28/23 at 0726, Until Thu01/28/23 at 0827, Anesthesia Intra-Op Given 01/28/2023 7:26 AM RENEWABLE ENERGY DIVISION MANAGER 2 mg ondansetron (ZOFRAN) injection Intravenous, PRN, Starting on Thu01/28/23 at 0809, Until Thu01/28/23 at 0827, Anesthesia Intra-Op Given 01/28/2023 8:09 AM RENEWABLE ENERGY DIVISION MANAGER 4 mg propofol (DIPRIVAN) IV bolus Intravenous, PRN, Starting on Thu01/28/23 at 0733, Until Thu01/28/23 at 0827, Anesthesia Intra-Op Given 01/28/2023 8:18 AM RENEWABLE ENERGY DIVISION MANAGER 10 mg Given 01/28/2023 8:16 AM RENEWABLE ENERGY DIVISION MANAGER 20 mg Given 01/28/2023 7:33 AM RENEWABLE ENERGY DIVISION MANAGER 220 mg documented in this encounter Additional Health Concerns Assessment Noted Time PHQ-9 Depression Total Score: 0 10/26/19 22 11:07 AM CDT documented as of this encounter Care Teams Sap Business Objects Developer Relationship Specialty Start Date End Date Clara Stanley APNP [address] [place] [address] PCP - General NURSE PRACTITIONER 06/01/18 Dominick Mccloud MD [facility] [address] [place] [address] [place] Kitchen Runner CARDIOVASCULAR DISEASE 03/28/19 Alexis Lopez MD [address] [address] PULMONARY DISEASE 10/21/19 documented as of this encounter
--- OUTSIDE RECORDS SUMMARY | 2024-03-02 03:19 | XMS_ITS | Encounter Summary ---
Author Organization [facility] Address [address] [place] [address]. [place], [place] [address] [place] [address] Care Team Providers Care Cadence Specialists Name Role Phone Clara Stanley Primary Care Provider Dominick Mccloud MD Unavailable [phone] Alexis Lopez MD Unavailable [phone] Kip Del Rio MD Unavailable [phone] Encounter Details Date Type Department Care Team (Late st Contact Info) Description 09/10/2022 MyChart Message Enc [facility] [address] [place] [address] [facility] Provider Air Quality Message Social History Tobacco Use Types Packs/Day Years [...] st Contact Info) Description 03/28/2024 7:30 AM ASSISTANT ASSOCIATE PROFESSOR Hospital Encounter [facility] [place] [address] Antwan Stone, DIEGO [address], [place] [address] 03/28/2024 7:30 AM ASSISTANT ASSOCIATE PROFESSOR Anesthesia Event [facility] [address] Shanelle Avila, HUMAN RESOURCES DESIGNATE [address] [place] [address] 03/28/2024 7:30 AM ASSISTANT ASSOCIATE PROFESSOR - 03/28/2024 8:48 AM ASSISTANT ASSOCIATE PROFESSOR Surgery [facility] [place] [address] Antwan Stone, DIEGO [address], [place] [address] REMOVAL OF HARDWARE LEFT FOOT 04/05/2024 8:30 AM ASSISTANT ASSOCIATE PROFESSOR Office Visit Darren Chaudhari-O'F allon THREE [facility], [facility] [address] [place] [address] Dominick Mccloud MD Three [facility]. [facility] [address] [place] [address] Scheduled Procedures Name Priority Associated Diagnoses Date/Ti me REMOVAL PLATE SCREW OR PIN SCHED BY FAX 02/08/24 JUANITOS PHONE ASSESS 03/28/2024 7:30 AM ASSISTANT ASSOCIATE PROFESSOR documented as of this encounter Visit Diagnoses Not on filedocumented in this encounter Additional Health Concerns Assessment Noted Time PHQ-9 Depression Total Score: 0 10/26/19 22 11:07 AM CDT documented as of this encounter Care Teams Cadence Specialists Relationship Specialty Start Date End Date Clara Stanley APNP [address] [place] [address] PCP - General NURSE PRACTITIONER 06/01/18 Dominick Mccloud MD [facility] [address] [place] [address] [place] CARDIOVASCULAR DISEASE 03/28/19 Alexis Lopez MD [address] [facility] [address] [place] [address] PULMONARY DISEASE 10/21/19 Kip Del Rio MD [address] [facility] [address] [place] [address] MEDICAL ONCOLOGY 02/24/24 documented as of this encounter
--- OUTSIDE RECORDS SUMMARY | 2024-03-02 03:19 | XMS_ITS | Encounter Summary ---
Author Organization [facility] Address [address] [place] [address]. [place], [place] [address] [place] [address] Care Team Providers Care Form Setter Helper Name Role Phone Clara Stanley Primary Care Provider [phone] Dominick Mccloud MD Unavailable [phone] Alexis Lopez MD Unavailable [phone] Encounter Details Date Type Department Care Team (Latest Contact Info) Description 10/01/2023 Scan HEALTH INFO SRVCS Scanned, Doc Med [...] st Contact Info) Description 03/28/2024 7:30 AM [facility] Hospital Encounter [facility] One Day Services [place], [place] [id number] Antwan Stone DPM [address], [place] [address] 03/28/2024 7:30 AM DISTILLERY SUPERVISOR Anesthesia Event [facility] [place] [address] Shanelle Avila, WEIGHT RECORDER [address] [place] [address] 03/28/2024 7:30 AM DISTILLERY SUPERVISOR - 03/28/2024 8:48 AM DISTILLERY SUPERVISOR Surgery [facility] [place] [address] Antwan Stone, DPM [address], [place] [address] REMOVAL OF HARDWARE LEFT FOOT 04/05/2024 8:30 AM DISTILLERY SUPERVISOR Office Visit Darren Cardiovascular-O'F allon THREE [facility], [facility] [address] [place], [place] [address] Dominick Mccloud MD Three [facility]. [facility] [address] [place], [place] [address] Scheduled Procedures Name Priority Associated Diagnoses Date/Ti me REMOVAL PLATE SCREW OR PIN SCHED BY FAX 02/08/24 [facility] PHONE ASSESS 03/28/2024 7:30 AM DISTILLERY SUPERVISOR documented as of this encounter Visit Diagnoses Not on filedocumented in this encounter Additional Health Concerns Assessment Noted Time PHQ-9 Depression Total Score: 0 10/26/19 22 11:07 AM CDT documented as of this encounter Care Teams Form Setter Helper Relationship Specialty Start Date End Date Clara Stanley APNP [facility] [place] [facility]1 [place] [address] PCP - General NURSE PRACTITIONER 06/01/18 Dominick Mccloud MD [facility]. [facility] [address] [place] [address] [place] Recoating Machine Operator CARDIOVASCULAR DISEASE 03/28/19 Alexis Lopez MD [address] [facility] [address] [place] [address] PULMONARY DISEASE 10/21/19 documented as of this encounter
--- OUTSIDE RECORDS SUMMARY | 2024-03-02 03:19 | XMS_ITS | Encounter Summary ---
Author Organization [facility] Address [address] [place] [address]. [place], [place] [address] [place] [address] Care Team Providers Care Spring Fitter Helper Name Role Phone Clara Stanley Primary Care Provider [phone] Dominick Mccloud MD Unavailable [phone] Alexis Lopez MD Unavailable [phone] Encounter Details Date Type Department Care Team (Latest Contact Info) Description 12/15/2022 Scan HEALTH INFO SRVCS Scanned, Doc Med [...] st Contact Info) Description 03/28/2024 7:30 AM [facility] Hospital Encounter [facility] One Day Services [place], [place] [id number] Antwan Stone DPM [address], [place] [address] 03/28/2024 7:30 AM UMBRELLA SUPERVISOR Anesthesia Event [facility] [place] [address] Shanelle Avila, PROCUREMENT OFFICER [address] [place] [address] 03/28/2024 7:30 AM UMBRELLA SUPERVISOR - 03/28/2024 8:48 AM UMBRELLA SUPERVISOR Surgery [facility] [address] Antwan Stone, DPM [address], [place] [address] REMOVAL OF HARDWARE LEFT FOOT 04/05/2024 8:30 AM UMBRELLA SUPERVISOR Office Visit Darren Cardiovascular-O'F allon THREE [facility], [facility] [address] [place], [place] [address] Dominick Mccloud MD Three [facility]. [facility] [address] [place], [place] [address] Scheduled Procedures Name Priority Associated Diagnoses Date/Ti me REMOVAL PLATE SCREW OR PIN SCHED BY FAX 02/08/24 [facility] PHONE ASSESS 03/28/2024 7:30 AM UMBRELLA SUPERVISOR documented as of this encounter Visit Diagnoses Not on filedocumented in this encounter Additional Health Concerns Assessment Noted Time PHQ-9 Depression Total Score: 0 10/26/19 22 11:07 AM CDT documented as of this encounter Care Teams Spring Fitter Helper Relationship Specialty Start Date End Date Clara Stanley APNP [facility]1 [place] [address] PCP - General NURSE PRACTITIONER 06/01/18 Dominick Mccloud MD [facility]. [facility] [address] [place] [address] [place] Yard Supervisor Cotton Gin CARDIOVASCULAR DISEASE 03/28/19 Alexis Lopez MD [address] [facility] [address] [place] [address] PULMONARY DISEASE 10/21/19 documented as of this encounter
--- OUTSIDE RECORDS SUMMARY | 2024-03-02 03:19 | XMS_ITS | Encounter Summary ---
Author Organization [facility] Address [address] [place] [address]. [place] [address] [place] [address] Care Team Providers Care Technical Training Instructor Name Role Phone Clara Stanley Primary Care Provider [phone] Dominick Mccloud MD Unavailable [phone] Alexis Lopez MD Unavailable [phone] Reason for Visit * Reason Onset Date Comments Results 03/27/2022 Encounter Details Date Type Department Care Team (Late st Contact Info) Description 03/27/2022 [place] [address] Cammie Avila, RN Results Social History Tobacco Use Types Packs/Day [...] Coronavirus/COVID-19? No / Unsure 03/24/2022 10:37 AM WRAPPER CASHIER documented as of this encounter Progress Notes * Cammie Avila RN - 03/27/2022 9:11 AM CST Patient informed of the response and v/u. Patient had no further questions. PER CASHIER * Cammie Avila RN - 03/27/2022 8:45 AM CST ----- Message from Dominick Mccloud MD sent at 03/26/2022 7:51 PM WRAPPER CASHIER ----- Echo and stress test normal, no cause for PEARCE. Defer to pulm and will monitor for worsening symptoms. PER CASHIER documented in this encounter Plan of Treatment Upcoming Encounters Date Type Department Care Team (Late st Contact Info) Description 03/28/2024 7:30 AM WRAPPER CASHIER Hospital Encounter [facility] [place] [address] Antwan Stone DPM [address], [facility] [address] [place], [place] [address] 03/28/2024 7:30 AM WRAPPER CASHIER Anesthesia Event [facility] [place] [address] Shanelle Avila, ASSIGNMENT DESK ASSISTANT [address] [place] [address] 03/28/2024 7:30 AM WRAPPER CASHIER - 03/28/2024 8:48 AM WRAPPER CASHIER Surgery [facility] OR [address] [place], [place] [address] Antwan Stone DPM [address], [facility] [place] [address] REMOVAL OF HARDWARE LEFT FOOT 04/05/2024 8:30 AM WRAPPER CASHIER Office Visit Darren Cardiovascular-Omar'F lonnie THREE [facility], [facility] [address] [place] [address] Dominick Mccloud MD [facility]. [facility] [address] [place] [address] Scheduled Procedures Name Priority Associated Diagnoses Date/Ti me REMOVAL PLATE SCREW OR PIN SCHED BY FAX 02/08/24 [facility] PHONE ASSESS 03/28/2024 7:30 AM WRAPPER CASHIER documented as of this encounter Visit Diagnoses Not on filedocumented in this encounter Additional Health Concerns Assessment Noted Time PHQ-9 Depression Total Score: 0 10/26/19 22 11:07 AM CDT documented as of this encounter Care Teams Technical Training Instructor Relationship Specialty Start Date End Date Clara Stanley APNP [address] [place] [address] PCP - General NURSE PRACTITIONER 06/01/18 Dominick Mccloud MD [facility]. [facility] [address] [place] [address] [place] Crews Activities Clerk CARDIOVASCULAR DISEASE 03/28/19 Alexis Lopez MD [address] [facility] [address] [address] PULMONARY DISEASE 10/21/19 documented as of this encounter
--- OUTSIDE RECORDS SUMMARY | 2024-03-02 03:19 | XMS_ITS | Encounter Summary ---
Author Organization [facility] Address [address] [place] [address]. [place], [place] [address] [place] [address] Care Team Providers Care First Aid Officer Name Role Phone Clara Stanley Primary Care Provider [phone] Dominick Mccloud MD Unavailable [phone] Alexis Lopez MD Unavailable [phone] Reason for Visit * Reason Comments Physical Encounter Details Date Type Department Care Team (Late st Contact Info) Description 12/23/2022 11:00 AM CDT Office Visit [facility] Medical Group Family & Internal Medicine [facility] [address] [place] [address] Clara Stanley APNP [facility] [place], [place] [id number] Physical Social History Tobacco Use Types Packs/Day Years [...] Sign Reading Time Taken Comments Blood Pressure 130/70 12/23/2022 11:15 AM CDT Pulse 72 12/23/2022 11:15 AM CDT Temperature 36.8 ??C (98.2 ??F) 12/23/2022 1 1:15 AM CDT Respiratory Rate 16 12/23/2022 11:1 5 AM CDT Oxygen Saturation 98% 12/23/2022 11: 15 AM CDT Inhaled Oxygen Concentration - - Weight 164.5 kg (362 lb 9.6 oz) 023 11:15 AM CDT Height 190.5 cm (6' 3 ) 12/23/2022 11:1 5 AM CDT Body Mass Index 45.32 12/23/2022 11:15 AM CDT documented in this encounter Progress Notes * ZEB Nunn - 12/23/2022 11:00 AM CDT Images from the original note were not included. [facility] FAMILY AND INTERNAL MEDICINE OFFICE VISIT Reason for Visit: Physical History of Present Illness: Chief Complaint: 57-year-old male presents for Physical . The patient is being seen for a health maintenance evaluation. General Health: good Dental Health: Sees dentist regularly Vision Health: Last eye exam < 1 year ago Hearing Health: No hearing problems Immunizations Needed: Influenza, Prevnar 13, and COVID Weight: Body mass index is 45.32 kg/m??. Physical Activity: Does not exercise Prostate Cancer Screening: last PSA one year ago Testicular Cancer Screening: Irregular self testicular exam Colorectal Cancer Screening: Colonoscopy last done: within the last year Metabolic Screening: Patient needs to be screened today for TSH and PSA HCV Screening: Patient does meet criteria and needs testing today PHQ-9 Screening Score: 0 Smoking Status: Smoking status:NeverSmokeless tobacco:Never Sleep Apnea Risk Factors: has dx of LEONOR Chronic health conditions: HTN - BP controlled, tolerates meds well HLD - currently on pravastatin. No bothersome side effects. Obesity - BMI . 45 -patient has tried several fad diets to include counting calories and weight watchers. He seems to lose a little bit but then gained it back including more. He is inquisitive aboutthe GLP-1 plan and would like to try Wegovy or Saxenda if this is a possibility. Denies any family history or personal history of thyroid cancer. He is currently being treated for a left 5th metatarsal fracture per ortho. ROS: Review of Systems Constitutional: Negative for chills and fever. Eyes: Negative for blurred vision and double vision. Respiratory: Negative for cough and shortness of breath. Cardiovascular: Negative for chest pain and palpitations. Gastrointestinal: Negative for abdominal pain and vomiting. Genitourinary: Negative for dysuria and urgency. Neurological: Negative for dizziness and headaches. Psychiatric/Behavioral: Negative for depression. The patient is not nervous/anxious. Medications: Current Outpatient Medications: amLODIPine (NORVASC) 10 MG tablet, TAKE 1 TABLET BY MOUTH EVERY NIGHT AT BEDTIME, Disp: 90 tablet, Rfl: 3 cetirizine (ZYRTEC) 10 MG tablet, Take 1 tablet (10 mg total) by mouth nightly at bedtime., Disp: ,Rfl: chlorthalidone (HYGROTEN) 25 MG tablet, Take 0.5 tablets (12.5 mg total) by mouth daily., Disp: 30 tablet, Rfl: 2 Mxenfzpehoo-Lhrjudgpf-Vxgimr (TRELEGY ELLIPTA) 100-62.5-25 MCG/ACT AEROSOL POWDER, BREATH ACTIVATED, , Disp: , Rfl: liraglutide, Weight Management, (SAXENDA) 18 MG/3ML injection, Inject 0.1-0.5 mLs (0.6-3 mg total) into the skin daily. Indications: Weight Loss Start With: 0.6 mg (0.1 mL) SC once daily x7 days, then 1.2 mg (0.2 mL) SC once daily x7 days, then 1.8 mg (0.3 mL) SC once daily x 7 days, then 2.4 mg (0.4 mL) SC once daily x 7 days, then 3 mg (0.5 mL) SC once daily., Disp: 5 pen., Rfl: 1 montelukast (SINGULAIR) 10 MG tablet, Take 1 tablet (10 mg total) by mouth nightly at bedtime., Disp: , Rfl: Multiple Vitamins-Minerals (MULTIVITAMIN ADULT OR), , Disp: , Rfl: nitroglycerin (NITROSTAT) 0.4 MG SL tablet, Place 1 tablet (0.4 mg total) under the tongue every 5 (five) minutes as needed for Chest Pain (If 3 doses taken, call 911.). Maximum of 3 doses., Disp: 25tablet, Rfl: 1 pantoprazole EC (PROTONIX) 40 MG tablet, Take 1 tablet (40 mg total) by mouth daily., Disp: , Rfl: pravastatin (PRAVACHOL) 40 MG tablet, Take 1 tablet (40 mg total) by mouth nightly at bedtime., Disp: 90 tablet, Rfl: 2 vitamin C 1000 MG tablet, Take 1 tablet (1,000 mg total) by mouth daily., Disp: , Rfl: vitamin D3, cholecalciferol, 1.25 MG (77186 UT) capsule, Take 1 capsule (50,000 Units total) by mouth weekly., Disp: , Rfl: albuterol (PROVENTIL) (2.5 MG/3ML) 0.083% nebulizer solution, Inhale 3 mLs (2.5 mg total) into the lungs. 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 HENT: Head: Normocephalic and atraumatic. Right Ear: Tympanic membrane normal. Left Ear: Tympanic membrane normal. Mouth/Throat: Mouth: Mucous membranes are moist. Pharynx: No posterior oropharyngeal erythema. Eyes: General: No scleral icterus. Extraocular Movements: Extraocular movements intact. Conjunctiva/sclera: Conjunctivae normal. Pupils: Pupils are equal, round, and reactive to light. Neck: Trachea: No tracheal deviation. Cardiovascular: Rate and Rhythm: Normal rate and regular rhythm. Heart sounds: Normal heart sounds. No murmur heard. Pulmonary: Effort: Pulmonary effort is normal. No respiratory distress. Breath sounds: Normal breath sounds. No stridor. No wheezing. Abdominal: General: Bowel sounds are normal. There is no distension. Palpations: Abdomen is soft. There is no mass. Tenderness: There is no abdominal tenderness. There is no guarding or rebound. Musculoskeletal: General: No deformity. Normal range of motion. Cervical back: Normal range of motion and neck supple. Comments: Pt wearing splint on LLE, calf down. Using rolling scooter to assist with ambulation Skin: General: Skin is warm and dry. Findings: No erythema. Neurological: Mental Status: He is alert and oriented to person, place, and time. Gait: Gait is intact. Psychiatric: Mood and Affect: Mood and affect normal. Filed Vitals: 12/23/22 1115 BP: 130/70 Pulse: 72 Resp: 16 Temp: 98.2 ??F (36.8 ??C) TempSrc: Skin SpO2: 98% Weight: (!) 164.5 kg (362 lb 9.6 oz) Height: 6' 3 (1.905 m) Labs: Labs Reviewed Diagnoses/Impression: 1. General medical examination 2. Class 3 severe obesity due to excess calories with serious comorbidity and body mass index (BMI)of 45.0 to 49.9 in adult (CMS/HCC) CBC W/DIFF AUTOMATED TSH W/REFLEX liraglutide, Weight Management, (SAXENDA) 18 MG/3ML injection 3. Hypertension, benign Chronic liraglutide, Weight Management, (SAXENDA) 18 MG/3ML injection 4. Mixed hyperlipidemia Chronic TSH W/REFLEX liraglutide, Weight Management, (SAXENDA) 18 MG/3ML injection 5. Prostate cancer screening PROSTATE SPECIFIC ANTIGEN,SCREENING 6. Need for hepatitis C screening test HEPATITIS C ANTIBODY W/RFX TO HCV RNA ([facility] ONLY) 7. Need for prophylactic vaccination against Streptococcus pneumoniae (pneumococcus) [26317] Prevnar 20 (Pneumococcal) 8. Need for immunization against influenza [47144] FLU VACC QUAD 6 MONTHS+ 0.5 ML (SINGLE DOSE SYRINGE FLUZONE, FLUARIX, FLULAVAL OR SINGLE DOSE VIAL FLUZONE) Recommendations and Plan: 1. General medical examination Patient doing well. Reviewed with the patient BMI, blood pressure, diet, exercise, and encouraged healthy lifestyle choices. Screened for substance use, risk factors for STIs, diet and exercise habits, and symptoms of depression. Emphasized normal blood pressure of < 140/90 and lipid and diabetes screening for all men > 35 or for men 20-34 with risk factors. Recommended US screening for AAAfor all men 65-75 who have ever smoked. Recommended prostate screening. Colon screening starting at45. Recommended preventive immunizations according to age. 2. Class 3 severe obesity due to excess calories with serious comorbidity and body mass index (BMI)of 45.0 to 49.9 in adult ([facility]) - CBC W/DIFF AUTOMATED; Future - TSH W/REFLEX; Future - CBC W/DIFF AUTOMATED - TSH W/REFLEX - liraglutide, Weight Management, (SAXENDA) 18 MG/3ML injection; Inject 0.1-0.5 mLs (0.6-3 mg total) into the skin daily. Indications: Weight Loss Start With: 0.6 mg (0.1 mL) SC once daily x7 days, then 1.2 mg (0.2 mL) SC once daily x7 days, then 1.8 mg (0.3 mL) SC once daily x 7 days, then 2.4 mg (0.4 mL) SC once daily x 7 days, then 3 mg (0.5 mL) SC once daily. Dispense: 5 pen.; Refill: 1 Therapeutic lifestyle changes and dietary changes conducive to weight loss discussed today. Patientwishes to start Saxenda, we discussed the risk, benefits and side effects associated with this medication. Would like to see patient back in about 4 to 6 weeks after initiating medication 3. Hypertension, benign - liraglutide, Weight Management, (SAXENDA) 18 MG/3ML injection; Inject 0.1-0.5 mLs (0.6-3 mg total) into the skin daily. Indications: Weight Loss Start With: 0.6 mg (0.1 mL) SC once daily x7 days, then 1.2 mg (0.2 mL) SC once daily x7 days, then 1.8 mg (0.3 mL) SC once daily x 7 days, then 2.4 mg (0.4 mL) SC once daily x 7 days, then 3 mg (0.5 mL) SC once daily. Dispense: 5 pen.; Refill: 1 Stable. Continue meds 4. Mixed hyperlipidemia - TSH W/REFLEX; Future - TSH W/REFLEX - liraglutide, Weight Management, (SAXENDA) 18 MG/3ML injection; Inject 0.1-0.5 mLs (0.6-3 mg total) into the skin daily. Indications: Weight Loss Start With: 0.6 mg (0.1 mL) SC once daily x7 days, then 1.2 mg (0.2 mL) SC once daily x7 days, then 1.8 mg (0.3 mL) SC once daily x 7 days, then 2.4 mg (0.4 mL) SC once daily x 7 days, then 3 mg (0.5 mL) SC once daily. Dispense: 5 pen.; Refill: 1 Stable. Continue statin 5. Prostate cancer screening - PROSTATE SPECIFIC ANTIGEN,SCREENING; Future - PROSTATE SPECIFIC ANTIGEN,SCREENING 6. Need for hepatitis C screening test - HEPATITIS C ANTIBODY W/RFX TO HCV RNA ([facility] ONLY); Future - HEPATITIS C ANTIBODY W/RFX TO HCV RNA ([facility] ONLY) Shared decision making 7. Need for prophylactic vaccination against Streptococcus pneumoniae (pneumococcus) - [87086] Prevnar 20 (Pneumococcal) 8. Need for immunization against influenza - [32934] FLU VACC QUAD 6 MONTHS+ 0.5 ML (SINGLE DOSE SYRINGE FLUZONE, FLUARIX, FLULAVAL OR SINGLE DOSE VIAL FLUZONE) Orders Placed This Encounter CBC W/DIFF AUTOMATED TSH W/REFLEX PROSTATE SPECIFIC ANTIGEN,SCREENING HEPATITIS C ANTIBODY W/RFX TO HCV RNA ([facility] ONLY) [10342] Prevnar 20 (Pneumococcal) [22517] FLU VACC QUAD 6 MONTHS+ 0.5 ML (SINGLE DOSE SYRINGE FLUZONE, FLUARIX, FLULAVAL OR SINGLE DOSE VIAL FLUZONE) liraglutide, Weight Management, (SAXENDA) 18 MG/3ML injection Cannot display discharge medications since this is not an admission. PCP: ZEB Nunn 12/23/2022 documented in this encounter Plan of Treatment Upcoming Encounters Date Type Department Care Team (Late st Contact Info) Description 03/28/2024 7:30 AM HOUSING QUALITY STANDARD INSPECTOR Hospital Encounter [facility] [address] Antwan Stone, DIEGO [address], [place] [address] 03/28/2024 7:30 AM HOUSING QUALITY STANDARD INSPECTOR Anesthesia [place] [address] Shanelle Avila, COOK MORNING [address] [place] [address] 03/28/2024 7:30 AM HOUSING QUALITY STANDARD INSPECTOR - 03/28/2024 8:48 AM HOUSING QUALITY STANDARD INSPECTOR Surgery [facility] [place] [address] Antwan Stone DPM [address], [place] [address] REMOVAL OF HARDWARE LEFT FOOT 04/05/2024 8:30 AM HOUSING QUALITY STANDARD INSPECTOR Office Visit Darren Chaudhari-O'F allon [facility], [facility] [address] [place] [address] Dominick Mccloud MD Three [facility]. [facility] [address] [place] [address] Scheduled Procedures Name Priority Associated Diagnoses Date/Ti me REMOVAL PLATE SCREW OR PIN SCHED BY FAX 02/08/24 [facility] PHONE ASSESS 03/28/2024 7:30 AM HOUSING QUALITY STANDARD INSPECTOR documented as of this encounter Procedures Procedure Name Priority Date/Time Associated Diagnosis Comments HEPATITIS C ANTIBODY W/RFX TO HCV RNA Routine 04/10/2023 10:14 AM HOUSING QUALITY STANDARD INSPECTOR Need for hepatitis C screening test TSH W/REFLEX Routine 04/10/2023 10:12 AM HOUSING QUALITY STANDARD INSPECTOR Class 3 severe obesity due to excess calories with serious comorbidity and body mass index (BMI) of 45.0 to 49.9 in adult (CMS/HCC HHS/HCC) Mixed hyperlipidemia PROSTATE SPECIFIC ANTIGEN,SCREENING Routine 04/10/2023 10:12 AM HOUSING QUALITY STANDARD INSPECTOR Prostate cancer screening CBC W/DIFF AUTOMATED Routine 04/10/2023 10:12 AM HOUSING QUALITY STANDARD INSPECTOR Class 3 severe obesity due to excess calories with serious comorbidity and body mass index (BMI) of 45.0 to 49.9 in adult (CMS/HCC HHS/HCC) documented in this encounter Results * HEPATITIS C ANTIBODY W/RFX TO HCV RNA ([facility] ONLY) (04/10/2023 10:14 AM HOUSING QUALITY STANDARD INSPECTOR) HEPATITIS C AB Non Reactive Non Reacti [facility] 1 INTERPRETATION Comment [facility] 1 Comment: Not infected with HCV unless early or acute infection is suspected (which may be delayed in an immunocompromised individual), or other evidence exists to indicate HCV infection. 04/10/2023 10:1 4 AM HOUSING QUALITY STANDARD INSPECTOR 04/10/2023 Narrative [facility] - 04/11/2023 4:08 AM HOUSING QUALITY STANDARD INSPECTOR Performed at: ??01 - [facility] [address] ??[id number] Python Engineer: Xander Juárez PhD, Phone: ??[phone] Clara H Lizeth APNP LABORATORY Final Resul t Performing Organization Address [facility] Co de Phone Number [facility] [address] [place] [address] [facility] 1 * PROSTATE SPECIFIC ANTIGEN,SCREENING (04/10/2023 10:12 AM HOUSING QUALITY STANDARD INSPECTOR) PSA 0.8 0.0 - 4.0 ng/mL [facility] 1 Comment: [employer] ECLIA methodology. According to the [place] [employer], Serum PSA should decrease and remain at undetectable levels after radical prostatectomy. The AUA defines biochemical recurrence as an initial PSA value 0.2 ng/mL or greater followed by a subsequent confirmatory PSA value 0.2 ng/mL or greater. Values obtained with different assay methods or kits cannot be used interchangeably. Results cannot be interpreted as absolute evidence of the presence or absence of malignant disease. 04/10/2023 10:1 2 AM HOUSING QUALITY STANDARD INSPECTOR 04/10/2023 Narrative [facility] - 04/11/2023 4:08 AM HOUSING QUALITY STANDARD INSPECTOR Performed at: ??01 - [facility] ??[id number] Python Engineer: Xander Juárez PhD, Phone: ??[phone] Clara CARRINGTON LABORATORY Final Resul t Performing Organization Address [facility] de Phone Number [facility] [address] [place] [address] [facility] 1 * TSH W/REFLEX (04/10/2023 10:12 AM HOUSING QUALITY STANDARD INSPECTOR) Pathologist [facility] TSH 2.310 0.450 - 4.50 uIU/mL [facility] 1 04/10/2023 10:1 2 AM HOUSING QUALITY STANDARD INSPECTOR 04/10/2023 Narrative [facility] - 04/11/2023 4:08 AM HOUSING QUALITY STANDARD INSPECTOR Performed at: ??01 - [facility] ??[id number] Python Engineer: Xander Juárez PhD, Phone: ??[phone] Clara CARRINGTON LABORATORY Final Resul t Performing Organization Address [facility] Co de Phone Number [facility] [address] [phone] [facility] 1 * CBC W/DIFF AUTOMATED (04/10/2023 10:12 AM HOUSING QUALITY STANDARD INSPECTOR) Pathologist [facility] WBC 8.8 3.4 - 10.8 x10E3/uL [facility] 1 RBC 4.90 4.14 - 5.80 x10E6/uL [facility] 1 HGB 14.3 13.0 - 17.7 g/dL [facility] 1 HCT 42.5 37.5 - 51.0 % [facility] 1 MCV 87 79 - 97 fL [facility] 1 MCH 29.2 26.6 - 33.0 pg [facility] 1 MCHC 33.6 31.5 - 35.7 g/dL [facility] 1 RDW 12.8 11.6 - 15.4 % [facility] 1 PLATELET COUNT 263 150 - 450 x10E3/uL [facility] 1 NEUTROPHILS % 67 Not Estab. % [facility] 1 LYMPHOCYTES % 18 Not Estab. % [facility] 1 MONOCYTES % 10 Not Estab. % [facility] 1 EOSINOPHILS % 3 Not Estab. % [facility] 1 BASOPHILS % 1 Not Estab. % [facility] 1 ABS. NEUTROPHILS 6.0 1.4 - 7.0 x10E3/uL [facility] 1 ABS. LYMPHOCYTES 1.6 0.7 - 3.1 x10E3/uL [facility] 1 MONOCYTES 0.9 0.1 - 0.9 x10E3/uL [facility] 1 ABS. EOSINOPHILS 0.3 0.0 - 0.4 x10E3/uL [facility] 1 ABS. BASOPHILS 0.1 0.0 - 0.2 x10E3/uL [facility] 1 ABS. IMMATURE GRANULOCYTES 1 Not Estab. % [facility] 1 ABS. IMMATURE GRANULOCYTES 0.1 0.0 - 0.1 x10E3/uL [facility] 1 04/10/2023 10:1 2 AM HOUSING QUALITY STANDARD INSPECTOR 04/10/2023 Narrative [facility] - 04/11/2023 4:08 AM HOUSING QUALITY STANDARD INSPECTOR Performed at: ??01 - [facility] [address] ??[id number] Python Engineer: Xander Juárez PhD, Phone: ??[phone] Clara CARRINGTON LABORATORY Final Resul t [facility] [address] [place] [address] [facility] 1 documented in this encounter Visit Diagnoses Diagnosis General medical examination- Primary Unspecified general medical examination Class 3 severe obesity due to excess calories with serious comorbidity and body mass index (BMI) of 45.0 to 49.9 in adult (CMS/HCC HHS/HCC) Hypertension, benign Essential hypertension, benign Mixed hyperlipidemia Prostate cancer screening Special screening for malignant neoplasm of prostate Need for hepatitis C screening test Special screening examination for other specified viral diseases Need for prophylactic vaccination against Streptococcus pneumoniae (pneumococcus) Need for prophylactic vaccination against streptococcus pneumoniae (pneumococcus) Need for immunization against influenza Need for prophylactic vaccination and inoculation against influenza Painful orthopaedic hardware ([facility])- Primary documented in this encounter Additional Health Concerns Assessment Noted Time PHQ-9 Depression Total Score: 0 10/26/19 22 11:07 AM CDT documented as of this encounter Care Teams First Aid Officer Relationship Specialty Start Date End Date Clara Stanley APNP [address] [place] [address] PCP - General NURSE PRACTITIONER 06/01/18 Dominick Mccloud MD [facility] [address] [place] [address] Spring Boring Machine Operator Vertical CARDIOVASCULAR DISEASE 03/28/19 [place] [address] [place] [address] PULMONARY DISEASE 10/21/19 documented as of this encounter
--- OUTSIDE RECORDS SUMMARY | 2024-03-02 03:19 | XMS_ITS | Encounter Summary ---
Author Organization [facility] Address [address] [place] [address]. [place], [place] [address] [place] [address] Care Team Providers Care Operations Representative Name Role Phone Clara Stanley Primary Care Provider [phone] Dominick Mccloud MD Unavailable [phone] Alexis Lopez MD Unavailable [phone] Encounter Details Date Type Department Care Team (Latest Contact Info) Description 08/08/2022 Scan [employer] INFO SRVCS Scanned, Doc Med Group Social [...] [facility] Hospital Encounter [facility] [place] [address] Antwan Stone DPM [address], [place] [address] 03/28/2024 7:30 AM INFECTIOUS DISEASE PHYSICIAN Anesthesia Event [facility] [place] [address] Shanelle Avila, HEAD KNITTING MACHINE FIXER [address] [place] [address] 03/28/2024 7:30 AM INFECTIOUS DISEASE PHYSICIAN - 03/28/2024 8:48 AM INFECTIOUS DISEASE PHYSICIAN Surgery [facility] [place] [address] Antwan Stone, DIEGO [address], [place] [address] REMOVAL OF HARDWARE LEFT FOOT 04/05/2024 8:30 AM INFECTIOUS DISEASE PHYSICIAN Office Visit [facility]own[facility] Chaudhari-O'F allon [facility], [facility] [address] [place] [address] Dominick Mccloud MD Three [facility]. [facility] [address] [place] [address] Scheduled Procedures Name Priority Associated Diagnoses Date/Ti me REMOVAL PLATE SCREW OR PIN SCHED BY FAX 02/08/24 [facility] PHONE ASSESS 03/28/2024 7:30 AM INFECTIOUS DISEASE PHYSICIAN documented as of this encounter Visit Diagnoses Not on filedocumented in this encounter Additional Health Concerns Assessment Noted Time PHQ-9 Depression Total Score: 0 10/26/19 22 11:07 AM CDT documented as of this encounter Care Teams Operations Representative Relationship Specialty Start Date End Date Clara Stanley APNP [address] [place] [address] PCP - General NURSE PRACTITIONER 06/01/18 Dominick Mccloud MD [facility]. [facility] [address] [place] [address] [employer] Specialist CARDIOVASCULAR DISEASE 03/28/19 Alexis Lopez MD [address] [facility] [address] [place] [address] PULMONARY DISEASE 10/21/19 documented as of this encounter
--- OUTSIDE RECORDS SUMMARY | 2024-03-02 03:19 | XMS_ITS | Encounter Summary ---
Author Organization [facility] Address [address] [place] [address]. [place], [place] [address] [place] [address] Care Team Providers Care Account Specialist Name Role Phone Clara Stanley Primary Care Provider [phone] Dominick Mccloud MD Unavailable [phone] Alexis Lopez MD Unavailable [phone] Encounter Details Date Type Department Care Team (Latest Contact Info) Description 08/26/2023 Scan HEALTH INFO SRVCS Scanned, Doc Med [...] st Contact Info) Description 03/28/2024 7:30 AM [facility] Hospital Encounter [facility] One Day Services [place], [place] [id number] Antwan Stone DPM [address], [place] [address] 03/28/2024 7:30 AM FIREWORKS ASSEMBLY SUPERVISOR Anesthesia Event [facility] [place] [address] Shanelle Avila, PATTERN WEAVER 1 [place] [address] 03/28/2024 7:30 AM FIREWORKS ASSEMBLY SUPERVISOR - 03/28/2024 8:48 AM FIREWORKS ASSEMBLY SUPERVISOR Surgery [facility] [place] [address] Antwan Stone, DPM [address], [place] [address] REMOVAL OF HARDWARE LEFT FOOT 04/05/2024 8:30 AM FIREWORKS ASSEMBLY SUPERVISOR Office Visit [facility] THREE [facility], [facility] [address] [place], [place] [address] Dominick Mccloud MD Three [facility]. [facility] [address] [place], [place] [address] Scheduled Procedures Name Priority Associated Diagnoses Date/Ti me REMOVAL PLATE SCREW OR PIN SCHED BY FAX 02/08/24 [facility] PHONE ASSESS 03/28/2024 7:30 AM FIREWORKS ASSEMBLY SUPERVISOR documented as of this encounter Visit Diagnoses Not on filedocumented in this encounter Additional Health Concerns Assessment Noted Time PHQ-9 Depression Total Score: 0 10/26/19 22 11:07 AM CDT documented as of this encounter Care Teams Account Specialist Relationship Specialty Start Date End Date Clara Stanley APNP [facility]1 [place] [address] PCP - General NURSE PRACTITIONER 06/01/18 Dominick Mccloud MD [facility]. [facility] [address] [place] [address] [place] Grinder Hardboard CARDIOVASCULAR DISEASE 03/28/19 Alexis Lopez MD [address] [facility] [address] [place] [address] PULMONARY DISEASE 10/21/19 documented as of this encounter
--- OUTSIDE RECORDS SUMMARY | 2024-03-02 03:19 | XMS_ITS | Encounter Summary ---
Author Organization [facility] Address [address] [place] [address]. [place] [address] [place] [address] Care Team Providers Care Brim Pouncer Machine Operator Name Role Phone Clara Stanley Primary Care Provider Dominick Mccloud MD Unavailable [phone] Alexis Lopez MD Unavailable [phone] Kip Del Rio MD Unavailable [phone] Encounter Details Date Type Department Care Team (Late st Contact Info) Description 10/13/2022 AgInfoLink Message Enc [facility] THREE [facility], [facility] [address] [place] [address] Dominick Mccloud MD [facility]. [facility] [address] [place] [address] Wegovy Prescription Social History Tobacco Use Types Packs/Day [...] as of this encounter Progress Notes * Dominick Mccloud MD - 10/14/2022 12:12 AM CDT No cardiac concerns for either but defer to PCP for broader question of appropriateness. * Cammie Avila RN - 10/13/2022 3:57 PM CDT See below documented in this encounter Plan of Treatment Upcoming Encounters Date Type Department Care Team (Late st Contact Info) Description 03/28/2024 7:30 AM HIGH SPEED PRINTER OPERATOR Hospital Encounter [facility] [place] [address] Antwan Stone DPM [address], [place] [address] 03/28/2024 7:30 AM HIGH SPEED PRINTER OPERATOR Anesthesia Event [facility] [place] [address] Shanelle Avila, TAMPING 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 1 [place] [address] 03/28/2024 7:30 AM HIGH SPEED PRINTER OPERATOR - 03/28/2024 8:48 AM HIGH SPEED PRINTER OPERATOR Surgery [facility] [place] [address] Antwan Stone DPM [address], [place] [address] REMOVAL OF HARDWARE LEFT FOOT 04/05/2024 8:30 AM HIGH SPEED PRINTER OPERATOR Office Visit [facility] Cardiovascular-O'F allon THREE [facility], [facility] [address] [place], [place] [address] Dominick Mccloud MD Three [facility]. [facility] [address] [place], [place] [address] Scheduled Procedures Name Priority Associated Diagnoses Date/Ti me REMOVAL PLATE SCREW OR PIN SCHED BY FAX 02/08/24 [facility] PHONE ASSESS 03/28/2024 7:30 AM HIGH SPEED PRINTER OPERATOR documented as of this encounter Visit Diagnoses Not on filedocumented in this encounter Additional Health Concerns Assessment Noted Time PHQ-9 Depression Total Score: 0 10/26/19 22 11:07 AM CDT documented as of this encounter Care Teams Brim Pouncer Machine Operator Relationship Specialty Start Date End Date Clara Stanley APNP [address] [place] [address] PCP - General NURSE PRACTITIONER 06/01/18 Dominick Mccloud MD Three [facility]. [facility] [address] [place], [place] [address] [place] Medical Operations Supervisor CARDIOVASCULAR DISEASE 03/28/19 Alexis Lopez MD 4600 [facility] [address] [address] PULMONARY DISEASE 10/21/19 Kip Del Rio MD 4921 [facility] 8[address] [place] [address] MEDICAL ONCOLOGY 02/24/24 documented as of this encounter
--- OUTSIDE RECORDS SUMMARY | 2024-03-02 03:19 | XMS_ITS | Encounter Summary ---
Author Organization [facility] Address [address] [place] [address]. [place] [address] [place] [address] Care Team Providers Care Biomedical Specialist Name Role Phone Clara Stanley Primary Care Provider [phone] Dominick Mccloud MD Unavailable [phone] Alexis Lopez MD Unavailable [phone] Kip Del Rio MD Unavailable [phone] Encounter Details Date Type Department Care Team (Late st Contact Info) Description 10/15/2022 Abstract [facility] [address] Millie Blanc MA Social History Tobacco Use Types Packs/Day Years [...] st Contact Info) Description 03/28/2024 7:30 AM VITICULTURE TEACHER Hospital Encounter [facility] One Day [facility] ONE [facility] [address] Antwan Stone, DPM [address], [place] [address] 03/28/2024 7:30 AM VITICULTURE TEACHER Anesthesia Event [facility] [place] [address] Shanelle Avila, RAEANN 1 [place] [address] 03/28/2024 7:30 AM VITICULTURE TEACHER - 03/28/2024 8:48 AM VITICULTURE TEACHER Surgery [facility] [address] Antwan Stone, TEJASM [address], [place] [address] REMOVAL OF HARDWARE LEFT FOOT 04/05/2024 8:30 AM VITICULTURE TEACHER Office Visit Darren Chaudhari-O'F allon THREE [facility], [facility] [address] [place] [address] Dominick Mccloud MD Three [facility]. [facility] [address] [place] [address] Scheduled Procedures Name Priority Associated Diagnoses Date/Ti me REMOVAL PLATE SCREW OR PIN SCHED BY FAX 02/08/24 [facility] PHONE ASSESS 03/28/2024 7:30 AM VITICULTURE TEACHER documented as of this encounter Procedures Procedure Name Priority Date/Time Associated Diagnosis Comments BASIC METABOLIC PANEL Routine 04/10/2023 MAGNESIUM Routine 04/10/2023 COMPREHENSIVE METABOLIC PANEL Routine 10/14/2022 LIPID PANEL Routine 10/14/2022 documented in this encounter Results * MAGNESIUM (04/10/2023) MAGNESIUM 2.3 04/10/2023 us Default History Genericprovider LABORATORY Final Result * (ABNORMAL) BASIC METABOLIC PANEL (04/10/2023) SODIUM S/P/B 137 POTASSIUM S/P/B 4.7 CO2 26 CHLORIDE S/P/B 97 GLUCOSE 100 mg/dL CALCIUM S/P/B 10.5 BUN 17 CREATININE S/P/B 0.86 0.7 - 1.3 EGFR NON-AFR. AMER. 102(A) <=90 04/10/2023 us Default History Genericprovider LABORATORY Final Result * (ABNORMAL) COMPREHENSIVE METABOLIC PANEL (10/14/2022) SODIUM S/P/B 136 POTASSIUM S/P/B 4.7 CO2 24 CHLORIDE S/P/B 99 GLUCOSE 95 mg/dL CALCIUM S/P/B 9.6 BUN 15 CREATININE S/P/B 0.78 0.7 - 1.3 EGFR NON-AFR. AMER. 105(A) <=90 ALKALINE PHOSPHATASE S/P/B '101 ALT 18 AST 21 BILIRUBIN TOTAL S/P/B 0.4 ALBUMIN S/P/B 4.5 3.5 - 5.0 TOTAL PROTEIN S/P/B 7.2 GLOBULIN 2.7 10/14/2022 Default History Genericprovider LABORATORY Edited Result - Final * LIPID PANEL (10/14/2022) CHOLESTEROL 201 HDL 57 TRIGLYCERIDES 111 LDL (CALCULATED) 124 10/14/2022 us Default History Genericprovider LABORATORY Final Result documented in this encounter Visit Diagnoses Not on filedocumented in this encounter Additional Health Concerns Assessment Noted Time PHQ-9 Depression Total Score: 0 10/26/19 22 11:07 AM CDT documented as of this encounter Care Teams Biomedical Specialist Relationship Specialty Start Date End Date Clara Stanely APNP [address] [place] [address] PCP - General NURSE PRACTITIONER 06/01/18 Dominick Mccloud MD [facility] [address] [place] [address] [place] Critical Care Nurse Practitioner CARDIOVASCULAR DISEASE 03/28/19 Alexis Lopez MD [address] [address] PULMONARY DISEASE 10/21/19 Kip Del Rio MD 4921 [facility] [address]056 [place] [address] MEDICAL ONCOLOGY 02/24/24 documented as of this encounter
--- OUTSIDE RECORDS SUMMARY | 2024-03-02 03:19 | XMS_ITS | Encounter Summary ---
Author Organization [facility] Address [address] [place] [address]. [place], [place] [address] [place] [address] Care Team Providers Care Special Events Coordinator Name Role Phone Clara Stanley Primary Care Provider [phone] Dominick Mccloud MD Unavailable [phone] Alexis Lopez MD Unavailable [phone] Encounter Details Date Type Department Care Team (Latest Contact Info) Description 03/31/2023 Travel Social History Tobacco Use Types Packs/Day [...] AM [facility] Hospital Encounter [facility] [place] [address] Antwan Stone DPM [address], [place] [address] 03/28/2024 7:30 AM SENIOR PIPING DESIGNER Anesthesia Event [facility] [address] Shanelle Avila, ELECTRONIC INSTALLER 1 [place] [address] 03/28/2024 7:30 AM SENIOR PIPING DESIGNER - 03/28/2024 8:48 AM SENIOR PIPING DESIGNER Surgery [facility] [address] Antwan Stone, DPM [address], [address] [place] [address] REMOVAL OF HARDWARE LEFT FOOT 04/05/2024 8:30 AM SENIOR PIPING DESIGNER Office Visit Darren Chaudhari-O'F allon THREE [facility], [facility] [address] [place] [address] Dominick Mccloud MD Three [facility]. [facility] [address] [place] [address] Scheduled Procedures Name Priority Associated Diagnoses Date/Ti me REMOVAL PLATE SCREW OR PIN SCHED BY FAX 02/08/24 KHS PHONE ASSESS 03/28/2024 7:30 AM SENIOR PIPING DESIGNER documented as of this encounter Visit Diagnoses Not on filedocumented in this encounter Additional Health Concerns Assessment Noted Time PHQ-9 Depression Total Score: 0 10/26/19 22 11:07 AM CDT documented as of this encounter Care Teams Special Events Coordinator Relationship Specialty Start Date End Date Clara Stanley APNP [address] [place] [address] PCP - General NURSE PRACTITIONER 06/01/18 Dominick Mclcoud MD [facility]. [facility] [address] [place] [address] [place] Vision Care Associate CARDIOVASCULAR DISEASE 03/28/19 Alexis Lopez MD [address] [facility] [address] [place] [address] PULMONARY DISEASE 10/21/19 documented as of this encounter
--- OUTSIDE RECORDS SUMMARY | 2024-03-02 03:19 | XMS_ITS | Encounter Summary ---
Author Organization [facility] Address [address] [place] [address]. [employer] [place], [place] [address] [place] [address] Care Team Providers Care Doctor Of Chiropractic Name Role Phone Clara Stanley Primary Care Provider [phone] Dominick Mccloud MD Unavailable [phone] Alexis Lopez MD Unavailable [phone] Encounter Details Date Type Department Care Team (Latest Contact Info) Description 09/10/2023 Travel Social History Tobacco Use Types Packs/Day [...] st Contact Info) Description 03/28/2024 7:30 AM [facility] Hospital Encounter [facility] [place] [address] Antwan Stone DPM [address], [place] [address] 03/28/2024 7:30 AM DISTRICT SCOUT EXECUTIVE Anesthesia [place] [address] Shanelle vAila, TECHNICAL SALES REPRESENTATIVE 1 [place] [address] 03/28/2024 7:30 AM DISTRICT SCOUT EXECUTIVE - 03/28/2024 8:48 AM DISTRICT SCOUT EXECUTIVE [place] [address] Antwan Stone, DPM [address], [address] [place] [address] REMOVAL OF HARDWARE LEFT FOOT 04/05/2024 8:30 AM DISTRICT SCOUT EXECUTIVE Office Visit Darren Chaudhari-O'F allon THREE [facility], [facility] [address] [place] [address] Dominick Mcclodu MD Three [facility]. [facility] [address] [place] [address] Scheduled Procedures Name Priority Associated Diagnoses Date/Ti me REMOVAL PLATE SCREW OR PIN SCHED BY FAX 02/08/24 K[facility] PHONE ASSESS 03/28/2024 7:30 AM DISTRICT SCOUT EXECUTIVE documented as of this encounter Visit Diagnoses Not on filedocumented in this encounter Additional Health Concerns Assessment Noted Time PHQ-9 Depression Total Score: 0 10/26/19 22 11:07 AM CDT documented as of this encounter Care Teams Doctor Of Chiropractic Relationship Specialty Start Date End Date Clara Stanley APNP [address] [place] [address] PCP - General NURSE PRACTITIONER 06/01/18 Dominick Mccloud MD [facility]. [facility] [address] [place] [address] [place] Orchestra Director CARDIOVASCULAR DISEASE 03/28/19 Alexis Lopez MD [address] [facility] [address] [place] [address] PULMONARY DISEASE 10/21/19 documented as of this encounter
--- OUTSIDE RECORDS SUMMARY | 2024-03-02 03:19 | XMS_ITS | Encounter Summary ---
Author Organization [facility] Address [address] [place] [address]. [place], [place] [address] [place] [address] Care Team Providers Care Defensive Line Coach Name Role Phone Clara Stanley Primary Care Provider [phone] Dominick Mccloud MD Unavailable [phone] Alexis Lopez MD Unavailable [phone] Encounter Details Date Type Department Care Team (Latest Contact Info) Description 01/28/2023 Travel Social History Tobacco Use Types Packs/Day [...] st Contact Info) Description 03/28/2024 7:30 AM [facility] Hospital Encounter [facility] [place] [address] Antwan Stone DPM [address], [address] [place] [address] 03/28/2024 7:30 AM SENIOR TECHNOLOGIST Anesthesia Event [place] [address] Shanelle Avila, ANNUAL GREENHOUSE MANAGER 1 [place] [address] 03/28/2024 7:30 AM SENIOR TECHNOLOGIST - 03/28/2024 8:48 AM SENIOR TECHNOLOGIST Surgery [place] [address] Antwan Stone, DPM [address], [address] [place] [address] REMOVAL OF HARDWARE LEFT FOOT 04/05/2024 8:30 AM SENIOR TECHNOLOGIST Office Visit Darren Chaudhari-O'F allon THREE [facility], [facility] [address] [place] [address] Dominick Mccloud MD Three [facility] [address] [place] [address] Scheduled Procedures Name Priority Associated Diagnoses Date/Ti me REMOVAL PLATE SCREW OR PIN SCHED BY FAX 02/08/24 KHS PHONE ASSESS 03/28/2024 7:30 AM SENIOR TECHNOLOGIST documented as of this encounter Visit Diagnoses Not on filedocumented in this encounter Additional Health Concerns Assessment Noted Time PHQ-9 Depression Total Score: 0 10/26/19 22 11:07 AM CDT documented as of this encounter Care Teams Defensive Line Coach Relationship Specialty Start Date End Date Clara Stanley APNP [address] [place] [address] PCP - General NURSE PRACTITIONER 06/01/18 Dominick Mccloud MD [facility]. [facility] [address] [place] [address] [place] Sap Technical Developer CARDIOVASCULAR DISEASE 03/28/19 Alexis Lopez MD [address] [facility] [address] [place] [address] PULMONARY DISEASE 10/21/19 documented as of this encounter
--- OUTSIDE RECORDS SUMMARY | 2024-03-02 03:19 | XMS_ITS | Encounter Summary ---
Author Organization [facility] Address [address] [place] [address]. [place], [place] [address] [place] [address] Care Team Providers Care Machine Bander And Cellophaner Name Role Phone Clara Stanley Primary Care Provider [phone] Dominick Mccloud MD Unavailable [phone] Alexis Lopez MD Unavailable [phone] Encounter Details Date Type Department Care Team (Late st Contact Info) Description 10/16/2022 360pi Message Enc [facility]arcia llon THREE [facility], [facility] [address] [place] [address] Dominick Mccloud MD Three [facility]. [facility] [address] [place], [place] [id number] Justin Shad Cholesterol Meds Social History Tobacco Use Types Packs/Day Years [...] Progress Notes * Cammie Avila RN - 10/16/2022 2:30 PM CDT . * Earnestine Perry NP - 10/16/2022 11:06 AM CDT Thank you * Cammie Avila RN - 10/16/2022 10:55 AM CDT Saw in result note increase to 40 mg qhs Will send new rx * Cammie Avila RN - 10/16/2022 10:40 AM CDT Please confirm what dose you would like for him to take documented in this encounter Plan of Treatment Upcoming Encounters Date Type Department Care Team (Late st Contact Info) Description 03/28/2024 7:30 AM GREEN CHAIN OFFBEARER Hospital Encounter [facility] [place] [address] Antwan Stone DPM [address], [place] [address] 03/28/2024 7:30 AM GREEN CHAIN OFFBEARER Anesthesia Event [facility] [place] [address] Shanelle Avila, METER ATTENDANT 1 [place] [address] 03/28/2024 7:30 AM GREEN CHAIN OFFBEARER - 03/28/2024 8:48 AM GREEN CHAIN OFFBEARER Surgery [facility] [place] [address] [address] Antwan Stone, DPM [address], [place] [address] REMOVAL OF HARDWARE LEFT FOOT 04/05/2024 8:30 AM GREEN CHAIN OFFBEARER Office Visit [facility] THREE [facility], [facility] [address] [place] [address] Dominick Mccloud MD Three [facility]. [facility] [address] [place] [address] Scheduled Procedures Name Priority Associated Diagnoses Date/Ti me REMOVAL PLATE SCREW OR PIN SCHED BY FAX 02/08/24 K[facility] PHONE ASSESS 03/28/2024 7:30 AM GREEN CHAIN OFFBEARER documented as of this encounter Visit Diagnoses Diagnosis Mixed hyperlipidemia Painful orthopaedic hardware (CMS/HCC)- Primary documented in this encounter Additional Health Concerns Assessment Noted Time PHQ-9 Depression Total Score: 0 10/26/19 22 11:07 AM CDT documented as of this encounter Care Teams Machine Bander And Cellophaner Relationship Specialty Start Date End Date Clara Stanley APNP [address] [place] [address] PCP - General NURSE PRACTITIONER 06/01/18 Dominick Mccloud MD Three [facility]. [facility] [address] [place] [address] [place] End Worker CARDIOVASCULAR DISEASE 03/28/19 Alexis Lopez MD 4600 [facility] [address] [address] PULMONARY DISEASE 10/21/19 documented as of this encounter
--- OUTSIDE RECORDS SUMMARY | 2024-03-02 03:20 | XMS_ITS | Encounter Summary ---
Author Organization [facility] Address [address] [place] [address]. [place], [place] [address] [place] [address] Care Team Providers Care Machine Folder Name Role Phone Clara Stanley Primary Care Provider [phone] Dominick Mccloud MD Unavailable [phone] Alexis Lopez MD Unavailable Encounter Details Date Type Department Care Team (Latest Contact Info) Description 03/21/2022 Travel Social History Tobacco Use Types Packs/Day [...] suspected to have Coronavirus/COVID-19? No / Unsure 03/21/2022 6:06 AM CONSULTING PRACTICE MANAGER documented as of this encounter Plan of Treatment Upcoming Encounters Date Type Department Care Team (Late st Contact Info) Description 03/28/2024 7:30 AM CONSULTING PRACTICE MANAGER Hospital Encounter [facility] [place] [address] Antwan Stone, DIEGO [address], [place] [address] 03/28/2024 7:30 AM CONSULTING PRACTICE MANAGER Anesthesia Event [place] [address] Shanelle Avila, BROADCAST CHIEF ENGINEER 1 [place] [address] 03/28/2024 7:30 AM CONSULTING PRACTICE MANAGER - 03/28/2024 8:48 AM CONSULTING PRACTICE MANAGER [place] [address] Antwan Stone, DIEGO [address] [place], [place] [address] REMOVAL OF HARDWARE LEFT FOOT 04/05/2024 8:30 AM CONSULTING PRACTICE MANAGER Office Visit Darren Chaudhari-O'F allon THREE [facility] [address] [place] [address] Dominick Mccloud MD Three [facility]. [facility] [address] [place] [address] Scheduled Procedures Name Priority Associated Diagnoses Date/Ti me REMOVAL PLATE SCREW OR PIN SCHED BY FAX 02/08/24 JUANITOS PHONE ASSESS 03/28/2024 7:30 AM CONSULTING PRACTICE MANAGER documented as of this encounter Visit Diagnoses Not on filedocumented in this encounter Additional Health Concerns Assessment Noted Time PHQ-9 Depression Total Score: 0 10/26/19 22 11:07 AM CDT documented as of this encounter Care Teams Machine Folder Relationship Specialty Start Date End Date Clara Stanley APNP [address] [place] [address] PCP - General NURSE PRACTITIONER 06/01/18 Dominick Mccloud MD [facility] [address] [place] [address] [place] Universal Grinder Operator CARDIOVASCULAR DISEASE 03/28/19 Alexis Lopez MD 4600 [facility] [address] [address] PULMONARY DISEASE 10/21/19 documented as of this encounter
--- OUTSIDE RECORDS SUMMARY | 2024-03-02 03:20 | XMS_ITS | Encounter Summary ---
Author Organization [facility] Address [address] [place] [address]. [place], [place] [address] [place] [address] Care Team Providers Care Hall Coordinator Name Role Phone Clara Stanley Primary Care Provider [phone] Dominick Mccloud MD Unavailable [phone] Alexis Lopez MD Unavailable [phone] Reason for Visit * Reason Comments Hypertension yearly followup Encounter Details Date Type Department Care Team (Late st Contact Info) Description 01/23/2021 1:45 PM NETWORK/TELECOM ENGINEER Office Visit [facility] THREE [facility], [facility] [address] [place], [place] [id number] Dominick Mccloud MD Three [facility]. [facility] [address] [place], [place] [id number] Hypertension (yearly followup) Social History Tobacco Use Types Packs/Day Years [...] please move on to questions 3-9 0 03/28/2020 Sex and Gender Information Value Date Recorded Sex Assigned at Not on file Legal Sex Male 9:00 PM CDT Gender Identity Not on file Sexual Orientation Not on file COVID-19 Exposure Response Date Recorded In the last month, have you been in contact with someone who was confirmed or suspected to have Coronavirus / COVID-19? No / Unsure 01/23/2021 1:35 PM NETWORK/TELECOM ENGINEER documented as of this encounter Last Filed Vital Signs Vital Sign Reading Time Taken Comments Blood Pressure 138/84 01/23/2021 1:45 PM NETWORK/TELECOM ENGINEER Pulse 99 01/23/2021 1:45 PM NETWORK/TELECOM ENGINEER Temperature - - Respiratory Rate - - Oxygen Saturation 96% 01/23/2021 1:45 PM NETWORK/TELECOM ENGINEER Inhaled Oxygen Concentration - - Weight 161.9 kg (357 lb) 01/23/2021 1:45 PM NETWORK/TELECOM ENGINEER Height 190.5 cm (6' 3 ) 01/23/2021 1:45 PM NETWORK/TELECOM ENGINEER Body Mass Index 44.62 01/23/2021 1:45 PM NETWORK/TELECOM ENGINEER documented in this encounter Progress Notes * Dominick Mccloud MD - 01/23/2021 1:45 PM CST Reason for Visit: Hypertension (yearly followup) History of Present Illness: Kwaku Kulkarni is a 55-year-old gentleman being seen today for followup. He has no current cardiovascular symptoms and denies chest pain, shortness of breath, heart failure symptoms. 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 His previous intracranial hypertension has resolved and he has been taken off Diamox per neuro-ophthalmology. ASSESSMENT AND PLAN: PROBLEM LIST: 1. Intracranial hypertension. 2. Hypertension. 3. Dyslipidemia. 4. GERD. 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 12/2020 recurrent paratracheal lymph node 6. Varicose veins s/p Right stab phlebectomy 7. Possible LEONOR PLAN Hypertension: Blood pressure is reasonably controlled on his current regimen. Dyslipidemia: He remains on Pravastatin. His 10-year cardiovascular risk is estimated at 5.8%. We discussed the fact that this mildly elevated risk could be treated with more aggressive blood pressure control or lipid therapy. For the time being, I recommend weight loss, exercise, dietary modifications. He is agreeable to this plan. I will plan to see him annually unless issues arise in the interim. Thank you very much for allowing me to participate in the care of your patient. Please feel free tocontact me with any further questions or concerns. DATA REVIEWED: 03/17/19 EKG personally overread: Normal sinus rhythm, left axis deviation, partial right bundle branch block. 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 He has no history of tobacco use, reports rare alcohol use, denies illicit substance use. FAMILY HISTORY: Significant for father who had coronary disease in his 60s. Medications: Current Outpatient Medications: ??? albuterol sulfate HFA (PROAIR HFA) 108 (90 Base) MCG/ACT inhaler, Inhale 2 puffs into the lungsevery 6 (six) hours as needed for Wheezing., Disp: 1 Inhaler, Rfl: 0 ??? AMLODIPINE 10 MG tablet, TAKE 1 TABLET BY MOUTH EVERY NIGHT AT BEDTIME, Disp: 90 tablet, Rfl: 3 ??? Budesonide-Formoterol Fumarate (SYMBICORT IN), Inhale 2 Inhalers into the lungs 2 (two) times aday. , Disp: , Rfl: ??? cetirizine (ZYRTEC ALLERGY) 10 MG tablet, Take 10 mg by mouth nightly at bedtime. , Disp: , Rfl: ??? fluticasone propionate 50 MCG/ACT nasal spray, 1 spray by Nasal route daily as needed. , Disp: , Rfl: ??? Multiple Vitamins-Minerals (MULTIVITAMIN ADULT OR), , Disp: , Rfl: ??? PRAVASTATIN 20 MG tablet, TAKE 1 TABLET BY MOUTH EVERY NIGHT AT BEDTIME, Disp: 90 tablet, Rfl: 3 ??? vitamin C 1000 MG tablet, Take 1,000 mg by mouth daily., Disp: , Rfl: ??? vitamin D3, cholecalciferol, 1.25 MG (34067 UT) capsule, Take 50,000 Units by mouth weekly., Disp: , Rfl: No Known Allergies Past Medical History: Diagnosis Date ??? 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 Asthma ??? BMI 40.0-44.9, adult (CMS/HCC) 03/28/2020 ??? Depression with anxiety 12/12/2014 ??? GERD (gastroesophageal reflux disease) ??? 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 Hyperlipidemia 02/21/2015 ??? Hypertension, benign 01/15/2017 ??? IIH (idiopathic intracranial hypertension) ??? Morbid obesity (CMS/HCC) 02/21/2015 ??? Non-small cell carcinoma of lung (CMS/HCC) s/p right lobectomy ??? Obesity ??? Varicose vein of leg ??? Wears glasses contacts Past Surgical History: Procedure Laterality Date ??? APPENDECTOMY ??? BRONCHOSCOPY ??? COLONOSCOPY ??? LUMBAR PUNCTURE 03/28/2019 ??? REMOVAL OF LUNG,LOBECTOMY Right 05/26/2019 partial lower lobectomy ??? TONSILLECTOMY Social History Tobacco Use ??? Smoking status: Never Smoker ??? Smokeless tobacco: Never Used Vaping Use ??? Vaping Use: Never used Substance Use Topics ??? Alcohol use: Yes Comment: 6 beers weekly ??? Drug use: No Family History Problem Relation Name Age of Onset ??? Cancer Mother bone ??? Heart Disease Father 65 Family Status Relation Name Status ??? Mother Alive, age 81y ??? Father Alive, age 84y Review of Systems Constitutional: Negative for recent [...] new or significant memory loss. Filed Vitals: 01/23/21 1345 BP: 138/84 Pulse: 99 SpO2: 96% Weight: (!) 161.9 kg (357 lb) Height: 6' 3 (1.905 m) Body mass index is 44.62 kg/m??. Physical Exam Constitutional: No distress. HENT: [...] Normal heart sounds. Normal S1 and Normal S2 No gallop. No S3 sound. No S4 sound and No murmur. Cardiovascular Comments: Diagnoses/Impression: 1. Hypertension, benign Chronic 2. Mixed hyperlipidemia Chronic Referring Provider: No ref. provider found PCP: ZEB Nunn ORK/TELECOM ENGINEER ORK/TELECOM ENGINEER documented in this encounter Plan of Treatment Upcoming Encounters Date Type Department Care Team (Late st Contact Info) Description 03/28/2024 7:30 AM NETWORK/TELECOM ENGINEER Hospital Encounter [facility] [place] [address] Antwan Stone DPM [address], [place] [address] 03/28/2024 7:30 AM NETWORK/TELECOM ENGINEER Anesthesia Event [place] [address] Shanelle Avila, EMERY GRINDER [address] [place] [address] 03/28/2024 7:30 AM NETWORK/TELECOM ENGINEER - 03/28/2024 8:48 AM NETWORK/TELECOM ENGINEER Surgery [place] [address] Antwan Stone, DPM [address], [place] [address] REMOVAL OF HARDWARE LEFT FOOT 04/05/2024 8:30 AM NETWORK/TELECOM ENGINEER Office Visit [facility] THREE [facility], [facility] [address] [place] [address] Dominick Mccloud MD [facility]. [facility] [address] [place] [address] Scheduled Procedures Name Priority Associated Diagnoses Date/Ti me REMOVAL PLATE SCREW OR PIN SCHED BY FAX 02/08/24 [facility] PHONE ASSESS 03/28/2024 7:30 AM NETWORK/TELECOM ENGINEER documented as of this encounter Visit Diagnoses Diagnosis Hypertension, benign- Primary Essential hypertension, benign Mixed hyperlipidemia Painful orthopaedic hardware (CMS/HCC)- Primary documented in this encounter Additional Health Concerns Assessment Noted Time PHQ-9 Depression Total Score: 4 03/28/19 21 1:42 PM NETWORK/TELECOM ENGINEER documented as of this encounter Care Teams Hall Coordinator Relationship Specialty Start Date End Date Clara Stanley APNP [address] [place] [address] PCP - General NURSE PRACTITIONER 06/01/18 Dominick Mccloud MD [facility]. [facility] [address] [place] [address] [place] [facility]oscopy CARDIOVASCULAR DISEASE 03/28/19 Alexis Lopez MD [address] [facility] [address] [place] [address] [place] [address] PULMONARY DISEASE 10/21/19 documented as of this encounter
--- OUTSIDE RECORDS SUMMARY | 2024-03-02 03:20 | XMS_ITS | Encounter Summary ---
Author Organization [facility] Address [address] [place] [address]. [place], [place] [address] [place] [address] Care Team Providers Care Inclusion Teacher Name Role Phone Clara Stanley Primary Care Provider [phone] Dominick Mccloud MD Unavailable [phone] Alexis Lopez MD Unavailable [phone] Encounter Details Date Type Department Care Team (Latest Contact Info) Description 01/08/2021 Scan HEALTH INFO SRVCS Scanned, Documents Social History Tobacco Use Types Packs/Day Years [...] COVID-19? No / Unsure 01/23/2021 1:35 PM ENGINEERING TECHNICIAN documented as of this encounter Plan of Treatment Upcoming Encounters Date Type Department Care Team ( Contact Info) Description 03/28/2024 7:30 AM ENGINEERING TECHNICIAN Hospital En[facility] [place] [address] Antwan Stone, DIEGO [address], [place] [address] 03/28/2024 7:30 AM ENGINEERING TECHNICIAN Anesthesia [place] [address] Shanelle Avila, CERTIFIED PROSTHETIST/ORTHOTIST [address] [place] [address] 03/28/2024 7:30 AM ENGINEERING TECHNICIAN - 03/28/2024 8:48 AM ENGINEERING TECHNICIAN Surgery [place] [address] Antwan Stone, DIEGO [address], [place] [address] REMOVAL OF HARDWARE LEFT FOOT 04/05/2024 8:30 AM ENGINEERING TECHNICIAN Office Visit [facility] THREE [facility], [facility] [address] [place] [address] Dominick Mccloud MD Three [facility]. [facility] [address] [place] [address] Scheduled Procedures Name Priority Associated Diagnoses Date/Ti me REMOVAL PLATE SCREW OR PIN SCHED BY FAX 02/08/24 [facility] PHONE ASSESS 03/28/2024 7:30 AM ENGINEERING TECHNICIAN documented as of this encounter Visit Diagnoses Not on filedocumented in this encounter Additional Health Concerns Assessment Noted Time PHQ-9 Depression Total Score: 4 03/28/19 21 1:42 PM ENGINEERING TECHNICIAN documented as of this encounter Care Teams Inclusion Teacher Relationship Specialty Start Date End Date Clara Stanley APNP [address] [place] [address] PCP - General NURSE PRACTITIONER 06/01/18 Dominick Mccloud MD [facility] [address] [place] [address] [place] Climatology Professor CARDIOVASCULAR DISEASE 03/28/19 Aleixs Lopez MD [address] [facility] [address] [place] [address] PULMONARY DISEASE 10/21/19 documented as of this encounter
--- OUTSIDE RECORDS SUMMARY | 2024-03-02 03:20 | XMS_ITS | Encounter Summary ---
Author Organization [facility] Address [address] [place] [address]. [place], [place] [address] [place] [address] Care Team Providers Care Buffer Automatic Name Role Phone Clara Stanley Primary Care Provider [phone] Dominick Mccloud MD Unavailable [phone] Alexis Lopez MD Unavailable [phone] Encounter Details Date Type Department Care Team (Latest Contact Info) Description 03/18/2022 Travel Social History Tobacco Use Types Packs/Day [...] suspected to have Coronavirus/COVID-19? No / Unsure 03/18/2022 8:25 AM ASSISTIVE TECHNOLOGY TRAINER documented as of this encounter Plan of Treatment Upcoming Encounters Date Type Department Care Team (Late st Contact Info) Description 03/28/2024 7:30 AM ASSISTIVE TECHNOLOGY TRAINER Hospital Encounter [facility] [place] [place] [address] Antwan Stone, DIEGO [address], [place] [address] 03/28/2024 7:30 AM ASSISTIVE TECHNOLOGY TRAINER Anesthesia [place] [address] Shanelle Avila, ALUMNI COORDINATOR [address] [place] [address] 03/28/2024 7:30 AM ASSISTIVE TECHNOLOGY TRAINER - 03/28/2024 8:48 AM ASSISTIVE TECHNOLOGY TRAINER [place] [address] Antwan Stone, DIEGO [address], [place] [address] REMOVAL OF HARDWARE LEFT FOOT 04/05/2024 8:30 AM ASSISTIVE TECHNOLOGY TRAINER Office Visit [facility] THREE [facility], [facility] [address] [place] [address] Dominick Mccloud MD Three [facility]. [facility] [address] [place] [address] Scheduled Procedures Name Priority Associated Diagnoses Date/Ti me REMOVAL PLATE SCREW OR PIN SCHED BY FAX 02/08/24 [facility] PHONE ASSESS 03/28/2024 7:30 AM ASSISTIVE TECHNOLOGY TRAINER documented as of this encounter Visit Diagnoses Not on filedocumented in this encounter Additional Health Concerns Assessment Noted Time PHQ-9 Depression Total Score: 0 10/26/19 22 11:07 AM CDT documented as of this encounter Care Teams Buffer Automatic Relationship Specialty Start Date End Date Clara Stanley APNP [address] [place] [address] PCP - General NURSE PRACTITIONER 06/01/18 Dominick Mccloud MD [facility] [address] [place] [address] [place] Flight Engineer CARDIOVASCULAR DISEASE 03/28/19 Alexis Lopez MD [address] [facility] [address] [address] PULMONARY DISEASE 10/21/19 documented as of this encounter
--- OUTSIDE RECORDS SUMMARY | 2024-03-02 03:20 | XMS_ITS | Encounter Summary ---
Author Organization [facility] Address [address] [place] [address]. [place], [place] [address] [place] [address] Care Team Providers Care Motor Equipment Lieutenant Name Role Phone Clara Stanley Primary Care Provider [phone] Dominick Mccloud MD Unavailable [phone] Alexis Lopez MD Unavailable [phone] Encounter Details Date Type Department Care Team (Latest Contact Info) Description 12/27/2020 Scan [employer] INFO SRVCS Scanned, Documents Social History Tobacco [...] [facility] Hospital Encounter [facility] [place] [address] Antwan Stone, DPÁngel [address] [place], [place] [address] 03/28/2024 7:30 AM ROCKET MOTOR MECHANIC Anesthesia Event [facility] [place] [address] Shanelle Avila, RAEANN [address] [place] [address] 03/28/2024 7:30 AM ROCKET MOTOR MECHANIC - 03/28/2024 8:48 AM ROCKET MOTOR MECHANIC Surgery [facility] [place] [address] Antwan Stone, DIEGO [address] [place] [address] REMOVAL OF HARDWARE LEFT FOOT 04/05/2024 8:30 AM ROCKET MOTOR MECHANIC Office Visit [facility] THREE [facility], [facility] [address] [place] [address] Dominick Mccloud MD Three [facility]. [facility] [address] [place] [address] Scheduled Procedures Name Priority Associated Diagnoses Date/Ti me REMOVAL PLATE SCREW OR PIN SCHED BY FAX 02/08/24 [facility] PHONE ASSESS 03/28/2024 7:30 AM ROCKET MOTOR MECHANIC documented as of this encounter Visit Diagnoses Not on filedocumented in this encounter Additional Health Concerns Assessment Noted Time PHQ-9 Depression Total Score: 4 03/28/19 21 1:42 PM ROCKET MOTOR MECHANIC documented as of this encounter Care Teams Motor Equipment Lieutenant Relationship Specialty Start Date End Date Clara Stanley APNP [address] [place] [address] PCP - General NURSE PRACTITIONER 06/01/18 Dominick Mccloud MD [facility]. [facility] [address] [place] [address] [place] [employer] CARDIOVASCULAR DISEASE 03/28/19 Alexis Lopez MD [address] [facility] [address] [place] [address] PULMONARY DISEASE 10/21/19 documented as of this encounter
--- OUTSIDE RECORDS SUMMARY | 2024-03-02 03:20 | XMS_ITS | Encounter Summary ---
Author Organization [facility] Address [address] [place] [address]. [place], [place] [address] [place] [address] Care Team Providers Care Police District Switchboard Operator Name Role Phone Clara Stanley Primary Care Provider [phone] Dominick Mccloud MD Unavailable [phone] Alexis Lopez MD Unavailable [phone] Reason for Visit * Auth/Cert Specialty Diagnoses / Procedures Referred By Erik [email or web address] Referred To Contact Diagnoses Personal hx of polyps Procedures COLONOSCOPY Referral ID Status Reason Start Date Expiration Date Visits Re quested Visits Authorized [id number] 1 1 Encounter Details Date Type Department Care Team (Late st Contact Info) Description 03/21/2022 7:00 AM MEDICARE INTERVIEWER - 03/21/2022 7:30 AM MEDICARE INTERVIEWER Surgery [facility] [place] [address] Lisa Medina, [address] [facility] [address] [place] [address] COLONOSCOPY Surgery Details Date/Time Status Location OR Service Patient Class Case Class Case Type Trauma Case? 03/21/2022 7:00 AM Posted [facility] 3 [facility] - Elective No Panel 1 Procedure LRB Anes Op Region Wound Class Comments COLONOSCOPY N/A IV Sedation (no ANES) Clean Contaminated diverticulosis negative ti Surgeon Surgeon Role Service Panel Lisa Medina, Primary Gastroenterology 1 documented in this encounter Social History Tobacco [...] Coronavirus/COVID-19? No / Unsure 03/21/2022 6:06 AM MEDICARE INTERVIEWER documented as of this encounter Last Filed Vital Signs Vital Sign Reading Time Taken Comments Blood Pressure 129/83 03/21/2022 7:25 AM MEDICARE INTERVIEWER Pulse 81 03/21/2022 7:25 AM MEDICARE INTERVIEWER Temperature 36.4 ??C (97.6 ??F) 03/21/2022 7:15 AM CS T Respiratory Rate 11 03/21/2022 7:25 AM MEDICARE INTERVIEWER Oxygen Saturation 93% 03/21/2022 7:25 AM MEDICARE INTERVIEWER Inhaled Oxygen Concentration - - Weight 163.3 kg (360 lb) 03/11/2022 10:20 AM MEDICARE INTERVIEWER Height 190.5 cm (6' 3 ) 03/11/2022 10:20 AM MEDICARE INTERVIEWER Body Mass Index 45 03/11/2022 10:20 AM MEDICARE INTERVIEWER documented in this encounter Discharge Instructions * Discharge Instructions* Amelie Johnson RN - 03/21/2022 7:26 AM MEDICARE INTERVIEWER Recommendations: Fiber. Follow-up with primary as needed. Recheck colonoscopy 5 years due to history of multiple colon polyps. CARE INTERVIEWER * Attachments The following attachments cannot be sent through Care Everywhere. * Colonoscopy Discharge Instructions (Ghanaian) * General Anesthesia Discharge Instructions (Ghanaian) documented in this encounter Medications at Time of Discharge cetirizine (ZYRTEC) 10 MG tablet Take 1 tablet (10 mg total) by mouth daily. 08/08/2014 Fluticasone-Umeclidi n-Vilant (TRELEGY ELLIPTA) 100-62.5-25 MCG/ACT AEROSOL POWDER, BREATH ACTIVATED Inhale 1 Dose into the lungs daily. Multiple Vitamins-Minerals (MULTIVITAMIN ADULT OR) Take 1 tablet by mouth daily. pantoprazole EC (PROTONIX) 40 MG tablet Take 1 tablet (40 mg total) by mouth daily. vitamin C 1000 MG tablet Take 1 tablet (1,000 mg total) by mouth daily. vitamin D3, cholecalciferol, 1.25 MG (04531 UT) capsule Take 1 capsule (50,000 Units total) by mouth weekly. amLODIPine (NORVASC) 10 MG tabletIndications:Hy pertension, benign Take 1 tablet (10 mg total) by mouth nightly at bedtime. at bedtime 90 tablet 3 10/25/2021 3 Budesonide-Formotero l Fumarate (SYMBICORT IN) Inhale 2 Inhalers into the lungs 2 (two) times a day. 3 fluticasone propionate 50 MCG/ACT nasal spray 1 spray by Nasal route daily as needed. 3 nitroglycerin (NITROSTAT) 0.[address] 1 tablet (0.4 mg total) under the tongue every 5 (five) minutes as needed for Chest Pain (If 3 doses taken, call 911.). Maximum of 3 doses. 25 tablet 1 02/12/2022 3 pravastatin (PRAVACHOL) 20 MG tabletIndications:Mi xed hyperlipidemia Take 1 tablet (20 mg total) by mouth nightly at bedtime. at bedtime 90 tablet 3 10/25/2021 3 documented as of this encounter Progress Notes * Lisa Medina DO - 03/21/2022 5:49 AM CST HISTORY AND PHYSICAL INTERVAL NOTE: I have reviewed Kwaku Kulkarni History & Physical which was performed within the past 30 days. After examining Kwaku Kulkarni, no change has occurred in the patient's condition since the H&P was completed. Informed Consent Discussion: Risks, benefits, alternatives of the procedure and sedation as well asthe consequences of not performing the surgery/procedure were discussed with the patient and/or family/personal medical billing representative. Questions were answered and the patient/family/personal medical billing representative verbalized understanding and desires to proceed. Previous Adverse Experience with Sedation, Analgesia, or Anesthesia? No ASA Classification: 3 Mallampati: 2 NPO: after midnight Planned Sedation/Analgesic Agent(s): Moderate Sedation Versed/Fentanyl Planned Procedure(s): Colonoscopy. Signed: LISA MEDINA MD CARE INTERVIEWER documented in this encounter H&P Notes * Lisa Medina DO - 03/21/2022 5:48 AM CST This very pleasant patient was seen at the request of the primary physician and with the patient's permission. The patient was examined the chart was reviewed. Reason for encounter: Colonoscopy. Impression/problem: History of adenomatous colon polyps. Recommendations: Colonoscopy. History: Negative GI review of systems. The patient is here for colonoscopy. Allergies: No Known Allergies Medications: No current facility-administered medications on file prior to encounter. Current Outpatient Medications on File Prior to Encounter Medication Sig ??? Xrokaqwdhkt-Wkzprrxlf-Wtvnqz (TRELEGY ELLIPTA) 100-62.5-25 MCG/ACT AEROSOL POWDER, BREATH ACTIVATED ??? pantoprazole EC (PROTONIX) 40 MG tablet Take 40 mg by mouth daily. ??? amLODIPine (NORVASC) 10 MG tablet Take 1 tablet (10 mg total) by mouth nightly at bedtime. at bedtime ??? Budesonide-Formoterol Fumarate (SYMBICORT IN) Inhale 2 Inhalers into the lungs 2 (two) times a day. ??? cetirizine (ZYRTEC) 10 MG tablet Take 10 mg by mouth nightly at bedtime. ??? fluticasone propionate 50 MCG/ACT nasal spray 1 spray by Nasal route daily as needed. ??? Multiple Vitamins-Minerals (MULTIVITAMIN ADULT OR) ??? nitroglycerin (NITROSTAT) 0.[address] 1 tablet (0.4 mg total) under the tongue every5 (five) minutes as needed for Chest Pain (If 3 doses taken, call 911.). Maximum of 3 doses. ??? pravastatin (PRAVACHOL) 20 MG tablet Take 1 tablet (20 mg total) by mouth nightly at bedtime. at bedtime ??? vitamin C 1000 MG tablet Take 1,000 mg by mouth daily. ??? vitamin D3, cholecalciferol, 1.25 MG (41392 UT) capsule Take 50,000 Units by mouth weekly. PMH: Past Medical History: Diagnosis Date ??? Adenomatous colon polyp ??? 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 Asthma ??? Depression with anxiety 12/12/2014 ??? GERD (gastroesophageal reflux disease) ??? 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 HLD (hyperlipidemia) ??? HTN (hypertension) ??? IIH (idiopathic intracranial hypertension) ??? Morbid obesity (CMS/HCC) 02/21/2015 ??? Non-small cell carcinoma of lung (CMS/HCC) s/p right lobectomy PSH: Past Surgical History: Procedure Laterality Date ??? APPENDECTOMY ??? BRONCHOSCOPY ??? COLONOSCOPY ??? LUMBAR PUNCTURE 03/28/2019 ??? REMOVAL OF LUNG,LOBECTOMY Right 05/26/2019 partial lower lobectomy ??? TONSILLECTOMY FMH Family History Problem Relation Name Age of Onset ??? Cancer Mother bone ??? Heart Disease Father 65 Social: Social History Socioeconomic History ??? Marital status: Tobacco Use ??? Smoking status: Never ??? Smokeless tobacco: Never Vaping Use ??? Vaping Use: Never used Substance and Sexual Activity ??? Alcohol use: Yes Comment: 6 beers weekly ??? Drug use: No ??? Sexual activity: Yes Partners: Female Other Topics Concern ??? Caffeine Concern Yes ??? Special Diet Yes ??? Exercise No ??? Seat Belt Yes Social History Narrative 14 point review of systems is unremarkable except for that mentioned above. Physical examination: General: The patient is alert and in no acute distress. HEENT: Head was normocephalic, sclerae clear, mouth without masses and neck was supple. Cardiac: Heart rate and rhythm were regular without S3 or S4. No carotid bruits. Lungs: CTA. Abdomen: Soft without pain. Bowel sounds active. No significant distention or tenderness. Neurologic: Nonfocal. Cranial nerves II through XII were intact. LUCA: No significant joint tenderness or swelling. No significant muscle atrophy. Extremities: No significant edema noted. Skin: Warm and dry without rashes. Mental status: Patient is alert and oriented. Patient is cooperative and appropriate. Rectal: Deferred. Thank you for allowing me to participate in the care of this most listening patient. If I can be ofany further service to you, please do not hesitate to contact me. Lisa Medina DO CARE INTERVIEWER documented in this encounter OR Notes * Op Note - Lisa Medina DO - 03/21/2022 7:17 AM CST Colonoscopy History/Preop: Very pleasant gentleman with a history of multiple adenomatous colon polyps. Post Op: Negative terminal ileum. Diverticulosis coli. Procedure Performed: Colonoscopy and ileoscopy. Findings: Patient was placed in the left lateral decubitus position. Sedated by 150 mcg of fentanyl and 8 mg of Versed in divided doses. Digital rectal examination was unremarkable. Colonoscopy to the distal 5cm of terminal and was completed. The visualized portion of the terminal ileum was unremarkable. Examination the colon was completed. Left-sided diverticulosis coli was observed. The rectum was examined in forward and retroflexed views. The rectum was unremarkable. Recommendations: Fiber. Follow-up with primary as needed. Recheck colonoscopy 5 years due to history of multiple colon polyps. Anes: 150 mcg of fentanyl and 8 mg of Versed in divided doses. Complications: No immediate. Quality Indicators: EBL: <5 mL Prep: Good. Procedure: The benefits, risks, complications and alternatives were explained in detail to the patient/power of litigation attorney. These were understood, assumed and written consent was obtained. The risk and complications include, but are not limited to, hemorrhage, perforation, infection, blood transfusion surgery, and missed lesions. Anesthesia risks were explained by the department of anesthesiology. These include, but are not limited to, allergic reactions, cardiopulmonary arrest, heart attack, stoke, and infection. All question were answered and understood. Lisa Medina DO CARE INTERVIEWER documented in this encounter Plan of Treatment Upcoming Encounters Date Type Department Care Team (Late st Contact Info) Description 03/28/2024 7:30 AM MEDICARE INTERVIEWER Hospital Encounter [facility] [place] [address] Antwan Stone, DIEGO [address], [place] [address] 03/28/2024 7:30 AM MEDICARE INTERVIEWER Anesthesia [place] [address] Shanelle Avila, RAEANN [address] [place] [address] 03/28/2024 7:30 AM MEDICARE INTERVIEWER - 03/28/2024 8:48 AM MEDICARE INTERVIEWER Surgery [place] [address] Antwan Stone, DIEGO [address], [place] [address] REMOVAL OF HARDWARE LEFT FOOT 04/05/2024 8:30 AM MEDICARE INTERVIEWER Office Visit [facility] THREE [facility], [facility] [address] [place] [address] Dominick Mccloud MD Three [facility]. [facility] [address] [place] [address] Scheduled Procedures Name Priority Associated Diagnoses Date/Ti me REMOVAL PLATE SCREW OR PIN SCHED BY FAX 02/08/24 [facility] PHONE ASSESS 03/28/2024 7:30 AM MEDICARE INTERVIEWER documented as of this encounter Procedures Procedure Name Priority Date/Time Associated Diagnosis Comments COLONOSCOPY Routine 03/21/2022 7:46 AM MEDICARE INTERVIEWER PROCEDURE GENERIC 03/21/2022 7:0 2 AM MEDICARE INTERVIEWER COLONOSCOPY 03/21/2022 6:47 AM MEDICARE INTERVIEWER Personal hx of polyps COLONOSCOPY Routine 03/21/2022 6:29 AM MEDICARE INTERVIEWER documented in this encounter Results * PROCEDURE GENERIC (03/21/2022 7:02 AM MEDICARE INTERVIEWER) Narrative 03/21/2022 7:02 AM MEDICARE INTERVIEWER Ordered by an unspecified provider. us Documents Scanned [facility] Final Result documented in this encounter Visit Diagnoses Not on filedocumented in this encounter Administered Medications Inactive Administered Medications - up to 3 most recent administrations Medication Order MAR Action Action Date Dose Rate Site fentaNYL (SUBLIMAZE) injection As needed, Starting on Thu03/21/22 at 0654, Until Thu03/21/22 at 0718, Intra-Op Given 03/21/2022 7:00 AM MEDICARE INTERVIEWER 50 mcg Given 03/21/2022 6:56 AM MEDICARE INTERVIEWER 50 mcg Given 03/21/2022 6:54 AM MEDICARE INTERVIEWER 50 mcg midazolam (VERSED) injection As needed, Starting on Thu03/21/22 at 0654, Until Thu03/21/22 at 0718, Intra-Op Given 03/21/2022 6:58 AM MEDICARE INTERVIEWER 2 mg Given 03/21/2022 6:56 AM MEDICARE INTERVIEWER 2 mg Given 03/21/2022 6:54 AM MEDICARE INTERVIEWER 4 mg documented in this encounter Active and Recently Administered Medications Times are shown in MEDICARE INTERVIEWER. PRN Medication Order 03/19/2022 03/20/2022 03/21/2022 fentaNYL (SUBLIMAZE) injection (CANCELED) As needed, Starting on Thu03/21/22 at 0654, Until Thu03/21/22 at 0718, Intra-Op 0654 (Given - Provid er: Shelby Glover RN - Comment: initial dose)0656 (Given - Provider: Shelby Glover RN - Comment: pt awake)0700 (Given - Provider: Shelby Glover RN - Comment: pt uncomfortable) midazolam (VERSED) injection (CANCELED) As needed, Starting on Thu03/21/22 at 0654, Until Thu03/21/22 at 0718, Intra-Op 0654 (Given - Provid er: Shelby Glover RN - Comment: initial dose)0656 (Given - Provider: Shelby Glover RN - Comment: pt awake)0658 (Given - Provider: Shelby Glover RN - Comment: pt awake) documented in this encounter Additional Health Concerns Assessment Noted Time PHQ-9 Depression Total Score: 0 10/26/19 22 11:07 AM CDT documented as of this encounter Care Teams Police District Switchboard Operator Relationship Specialty Start Date End Date Clara Stanley APNP [address] [place] [address] PCP - General NURSE PRACTITIONER 06/01/18 Dominick Mccloud MD [facility] [address] [place] [address] [place] Net C Developer CARDIOVASCULAR DISEASE 03/28/19 Alexis Lopez MD [address] [facility] [address] [address] PULMONARY DISEASE 10/21/19 documented as of this encounter
--- OUTSIDE RECORDS SUMMARY | 2024-03-02 03:20 | XMS_ITS | Encounter Summary ---
Author Organization [facility] Address [address] [place] [address]. [place], [place] [address] [place] [address] Care Team Providers Care Acetone Recovery Worker Name Role Phone Clara Stanley Primary Care Provider [phone] Dominick Mccloud MD Unavailable [phone] Alexis Lopez MD Unavailable [phone] Encounter Details Date Type Department Care Team (Latest Contact Info) Description 07/07/2021 Scan Epuls INFO SRVCS Scanned, Documents Social History Tobacco [...] st Contact Info) Description 03/28/2024 7:30 AM [facility] Hospital Encounter [facility] [place] [address] Antwan Stone, DPÁngel [address], [place] [address] 03/28/2024 7:30 AM MUFF WINDER Anesthesia Event [facility] [place] [address] Shanelle Avila, RAEANN [address] [place] [address] 03/28/2024 7:30 AM MUFF WINDER - 03/28/2024 8:48 AM MUFF WINDER Surgery [facility] [place] [address] Antwan Stone, DIEGO [address] [place] [address] REMOVAL OF HARDWARE LEFT FOOT 04/05/2024 8:30 AM MUFF WINDER Office Visit Torranceisela Chaudhari-O'F allon THREE [facility], [facility] [address] [place] [address] Dominick Mclcoud MD Three [facility]. [facility] [address] [place] [address] Scheduled Procedures Name Priority Associated Diagnoses Date/Ti me REMOVAL PLATE SCREW OR PIN SCHED BY FAX 02/08/24 [facility] PHONE ASSESS 03/28/2024 7:30 AM MUFF WINDER documented as of this encounter Visit Diagnoses Not on filedocumented in this encounter Additional Health Concerns Assessment Noted Time PHQ-9 Depression Total Score: 4 03/28/19 21 1:42 PM MUFF WINDER documented as of this encounter Care Teams Acetone Recovery Worker Relationship Specialty Start Date End Date Clara Stanley APNP [address] [place] [address] PCP - General NURSE PRACTITIONER 06/01/18 Dominick Mccloud MD [facility]. [facility] [address] [place] [address] [place] Stitch Bonding Machine Tender Helper CARDIOVASCULAR DISEASE 03/28/19 Alexis Lopez MD [address] [facility] [address] [place] [address] PULMONARY DISEASE 10/21/19 documented as of this encounter
--- OUTSIDE RECORDS SUMMARY | 2024-03-02 03:20 | XMS_ITS | Encounter Summary ---
Author Organization [facility] Address [address] [place] [address]. [place], [place] [address] [place] [address] Care Team Providers Care Relay Worker Name Role Phone Clara Stanley Primary Care Provider [phone] Dominick Mccloud MD Unavailable [phone] Alexis Lopez MD Unavailable [phone] Reason for Visit * Reason Onset Date Comments Results 10/29/2021 Encounter Details Date Type Department Care Team (Late st Contact Info) Description 10/29/2021 Telephone [facility] Family & Internal Medicine [facility] [address] [place] [address] Clara Stanley APNP [address] [place] [address] Results Social History Tobacco Use Types Packs/Day [...] suspected to have Coronavirus/COVID-19? No / Unsure 10/25/2021 10:10 AM CDT documented as of this encounter Progress Notes * Ester Moreno MA - 11/04/2021 9:39 AM CDT Pt notified and verbalized understanding. * ZEB Nunn - 11/02/2021 2:30 PM CDT Yes, increase the pravastatin to 40 mg * Torri Leong MA - 11/01/2021 3:03 PM CDT Patient is already taking Pravastatin, Does he need to increase this? * Shanelle Li MA - 10/29/2021 5:25 PM CDT Left message to please call the office. BB 10/29/2021 * Shanelle Li MA - 10/29/2021 5:24 PM CDT ----- Message from ZEB Nunn sent at 10/28/2021 5:35 PM CDT ----- Lipid panel elevated. LDL 144. He has 2 options. He can decrease the animal fats and carbohydrates in his diet and work on some weight loss or we can initiate a statin medication, which would be my choice. documented in this encounter Plan of Treatment Upcoming Encounters Date Type Department Care Team (Late st Contact Info) Description 03/28/2024 7:30 AM ACCOUNTING RECONCILIATION CLERK Hospital Encounter [facility] [place] [address] Antwan Stone, DPM [address], [place] [address] 03/28/2024 7:30 AM ACCOUNTING RECONCILIATION CLERK Anesthesia [place] [address] Shanelle Avila, RAEANN [address] [place] [address] 03/28/2024 7:30 AM ACCOUNTING RECONCILIATION CLERK - 03/28/2024 8:48 AM ACCOUNTING RECONCILIATION CLERK Surgery [place] [address] Antwan Stone, TEJASM [address] [place], [place] [address] REMOVAL OF HARDWARE LEFT FOOT 04/05/2024 8:30 AM ACCOUNTING RECONCILIATION CLERK Office Visit Darren [facility]-O'F allon THREE [facility], [facility] [address] [place] [address] Dominick Mccloud MD Three [facility]. [facility] [address] [place] [address] Scheduled Procedures Name Priority Associated Diagnoses Date/Ti me REMOVAL PLATE SCREW OR PIN SCHED BY FAX 02/08/24 KAYLIE PHONE ASSESS 03/28/2024 7:30 AM ACCOUNTING RECONCILIATION CLERK documented as of this encounter Visit Diagnoses Not on filedocumented in this encounter Additional Health Concerns Assessment Noted Time PHQ-9 Depression Total Score: 0 10/26/19 22 11:07 AM CDT documented as of this encounter Care Teams Relay Worker Relationship Specialty Start Date End Date Clara Stanley APNP [facility] [place] [address] PCP - General NURSE PRACTITIONER 06/01/18 Dominick Mccloud MD Three [facility] [address] [place] [address] [place] Weighmaster CARDIOVASCULAR DISEASE 03/28/19 Alexis Lopez MD [address] [facility] [address] [address] PULMONARY DISEASE 10/21/19 documented as of this encounter
--- OUTSIDE RECORDS SUMMARY | 2024-03-02 03:20 | XMS_ITS | Encounter Summary ---
Author Organization [facility] Address [address] [place] [address]. [place], [place] [address] [place] [address] Care Team Providers Care Software Project Lead Name Role Phone Clara Stanley Primary Care Provider [phone] Dominick Mccloud MD Unavailable [phone] Alexis Lopez MD Unavailable Reason for Referral * Procedure (Routine) - Closed Specialty Diagnoses / Procedures Referred By Contac t Referred To Contact Diagnoses PEARCE (dyspnea on exertion) BMI 40.0-44.9, adult ([facility]) LEONOR (obstructive sleep apnea) Snoring Lung mass Morbid obesity ([facility]) Insomnia Procedures Stress test only, exercise [facility] [place] [address] Phone: tel: Referral ID Status Reason Start Date Expiration Date Visits Re quested Visits Authorized [id number] Closed 03/24/2022 03/24/2023 1 1 E CHEMICAL DEPENDENCY * Imaging (Routine) - Closed Specialty Diagnoses / Procedures Referred By Contac t Referred To Contact RADIOLOGY Diagnoses PEARCE (dyspnea on exertion) Procedures NM EXER NUC STRESS TEST 2DAY NM EXER NUC STRESS TEST 1DAY Dominick Mccloud MD Three [facility]. [facility] [address] [place] [address] Phone: tel: fax: Referral ID Status Reason Start Date Expiration Date Visits Re quested Visits Authorized [id number] Closed 02/12/2022 05/03/2022 2 2 E CHEMICAL DEPENDENCY Reason for Visit * Imaging (Routine) - Closed Specialty Diagnoses / Procedures Referred By Contac t Referred To Contact RADIOLOGY Diagnoses PEARCE (dyspnea on exertion) Procedures NM EXER NUC STRESS TEST 2DAY NM EXER NUC STRESS TEST 1DAY Dominick Mccloud MD Three [facility]. [address] [address] Phone: tel: fax: Referral ID Status Reason Start Date Expiration Date Visits Re quested Visits Authorized [id number] Closed 02/12/2022 05/03/2022 2 2 Encounter Details Date Type Department Care Team (Late st Contact Info) Description 03/24/2022 10:30 AM NURSE CHEMICAL DEPENDENCY - 03/24/2022 11:59 PM NURSE CHEMICAL DEPENDENCY Hospital Encounter [facility] Nuclear Medicine [address] [place], [place] [address] Dominick Mccloud MD Three [address] [phone] Discharge Disposition: Home or Self Care (Routine [...] Coronavirus/COVID-19? No / Unsure 03/24/2022 10:37 AM NURSE CHEMICAL DEPENDENCY documented as of this encounter Medications at [...] mouth daily. vitamin D3, cholecalciferol, 1.25 MG (53777 UT) capsule Take 1 capsule (50,000 Units [...] 10/25/2021 3 documented as of this encounter Plan of Treatment Upcoming Encounters Date Type Department Care Team (Late st Contact Info) Description 03/28/2024 7:30 AM NURSE CHEMICAL DEPENDENCY Hospital Encounter [facility] [place] [address] Antwan Stone, DIEGO [address], [place] [address] 03/28/2024 7:30 AM NURSE CHEMICAL DEPENDENCY Anesthesia [place] [address] Shanelle Avila, SAP BW BI DEVELOPER [address] [place] [address] 03/28/2024 7:30 AM NURSE CHEMICAL DEPENDENCY - 03/28/2024 8:48 AM NURSE CHEMICAL DEPENDENCY Surgery [place] [address] Antwan Stone, DIEGO [address] [place], [place] [address] REMOVAL OF HARDWARE LEFT FOOT 04/05/2024 8:30 AM NURSE CHEMICAL DEPENDENCY Office Visit Darren Chaudhari-O'F allon THREE [facility], [facility] [address] [place] [address] Dominick Mccloud MD Three [facility]. [facility] [address] [place] [address] Scheduled Procedures Name Priority Associated Diagnoses Date/Ti me REMOVAL PLATE SCREW OR PIN SCHED BY FAX 02/08/24 [facility] PHONE ASSESS 03/28/2024 7:30 AM NURSE CHEMICAL DEPENDENCY documented as of this encounter Procedures Procedure Name Priority Date/Time Associated Diagnosis Comments NM EXER NUC STRESS TEST 2DAY Routine 03/24/2022 1:46 PM NURSE CHEMICAL DEPENDENCY PEARCE (dyspnea on exertion) STRESS TEST ONLY, EXERCISE Routine 03/24/2022 10:43 AM NURSE CHEMICAL DEPENDENCY PEARCE (dyspnea on exertion) BMI 40.0-44.9, adult (CMS/HCC HHS/HCC) LEONOR (obstructive sleep apnea) Snoring Lung mass Morbid obesity (CMS/HCC HHS/HCC) Insomnia documented in this encounter Results * NM EXER NUC STRESS TEST 2DAY (03/24/2022 1:46 PM NURSE CHEMICAL DEPENDENCY) Anatomical Region Laterality Modality Cardiac Nuclear Medicine 03/24/2022 11:4 6 AM NURSE CHEMICAL DEPENDENCY Narrative 03/24/2022 1:32 PM NURSE CHEMICAL DEPENDENCY ? Myocardial Perfusion Imaging ? Pat.Name: ??MP BULLOCK.ID: ?[id number] ? St.Date: ?? 03/24/2022 ?Refer.MD: ??Les Stanley ? Exam Time: 11:46:00 AM ? Study Type:GUME NC HT MUSCLE IMAGE SPECT MULTI Height: ?75 in ? Weight: ?360 lb ? BSA: ? 2.82 m2 ?Age: ??1965,56Y ? Sex: ? M ? Sonogrphr: Per Jones, PRODUCTION AIDE ? Pat. Stat.:Outpatient ? Reason for Study:Shortness of breath History / Clinical:Dyslipidemia, Hypertension, GERD, Sleep Apnea Procedures: Nuclear Stress Test with Exercise Race: ?W ? Surgery: ?? Echocardiogram ? ++++++++++++++++++++++++++++++++++++ SUMMARY: ++++++++++++++++++++++++++++++++++++ Stress conclusion: 1. ? Clinically negative. 2. ? Electrocardiographically negative treadmill test for ischemia. 3. ? Adequate exercise capacity. 4. ? Morfin Treadmill Score is 6, which indicates low risk. 5. ? Blood pressure response was normal. ?? 6. ? Scintigraphic images to follow. Perfusion conclusion: 1. ??Excellent study quality. ??No motion correction was applied to images. ??No attenuation is noted. ??Prone imaging was performed. 2. ??Normal myocardial perfusion SPECT imaging. ?? 3. ??Normal wall motion with an ejection fraction of 67%. ?? 4. ??Stress test with myocardial perfusion imaging shows overall low risk for a cardiac event. ++++++++++++++++++++++++++++++++++++ FINDINGS: ++++++++++++++++++++++++++++++++++++ Protocol: The images were processed using the standard SPECT ?technique. A gated study was performed on the stress images. Impression: SPECT images demonstrate normal perfusion of normal ?intensity. Heart Size: The left ventricle is normal. LV Wall Motion: The LVEF is calculated to be 67%. Transient Ischemic Dilatation: The TID is not calculated. ++++++++++++++++++++++++++++++++++++ STRESS: ++++++++++++++++++++++++++++++++++++ Baseline Vital Signs: ECG: ? Normal sinus rhythm ? HR: ?77 bmp ?Rest BP: ?? 148/88 Treadmill Test Protocol: ??Mark Duration: ??06:21 min:sec ? Max. Workload (METS): 7.7 Stress Test Results: Max HR: ?144 bmp ? Target HR: 166 bmp % Target: ??87 % ?Max BP: ?192/90 Max RPP: ?? 54544 ? O2 sat: ?100 % Symptoms and Complications: Terminated: Shortness of breath Symptoms: ??Shortness of breath Complications: None Stress ECG Interp: No ischemic changes <Signed> 03/24/2022 12:26 PM Dominick Mccloud M.D. Stress interpretation <Electronic Signature> 03/24/2022 01:32 PM Kamala Gomez M.D. Nuclear interpretation Procedure Note Kamala Gomez MD - 03/24/2022 Myocardial Perfusion Imaging Pat.Name: MP BULLOCK.ID: [id number] .Date: 03/24/2022 Refer.MD: Les Stanley Exam Time: 11:46:00 AM Study Type:GUME ME HT MUSCLE IMAGE SPECT MULTI Height: 75 in Weight: 360 lb BSA: 2.82 m2 Age: 2 1965,56Y Sex: M Sonogrphr: Per Jones [facility] Pat. Stat.:Outpatient Reason for Study:Shortness of breath History / Clinical:Dyslipidemia, Hypertension, GERD, Sleep Apnea Procedures: Nuclear Stress Test with Exercise Race: W Surgery: Echocardiogram ++++++++++++++++++++++++++++++++++++ SUMMARY: ++++++++++++++++++++++++++++++++++++ Stress conclusion: 1. Clinically negative. 2. Electrocardiographically negative treadmill [...] overall low risk for a cardiac event. ++++++++++++++++++++++++++++++++++++ FINDINGS: ++++++++++++++++++++++++++++++++++++ Protocol: The images were processed using the standard SPECT technique. A gated study was performed on the stress images. Impression: SPECT images demonstrate normal perfusion of normal intensity. Heart Size: The left ventricle is normal. LV Wall Motion: The LVEF is calculated to be 67%. Transient Ischemic Dilatation: The TID is not calculated. ++++++++++++++++++++++++++++++++++++ STRESS: ++++++++++++++++++++++++++++++++++++ Baseline Vital Signs: ECG: Normal sinus rhythm HR: 77 bmp Rest BP: 148/88 Treadmill Test Protocol: Mark Duration: 06:21 min:sec Max. Workload (METS): 7.7 Stress Test Results: Max HR: 144 bmp Target HR: 166 bmp % Target: 87 % Max BP: 192/90 Max RPP: 34683 O2 sat: 100 % Symptoms and Complications: Terminated: Shortness of breath Symptoms: Shortness of breath Complications: None Stress ECG Interp: No ischemic changes <Signed> 03/24/2022 12:26 PM Dominick Mccloud M.D. Stress interpretation <Electronic Signature> 03/24/2022 01:32 PM Kamala Gomez M.D. Nuclear interpretation Dominick Mccloud MD NUC MED Final Result documented in this encounter Visit Diagnoses Diagnosis PEARCE (dyspnea on exertion)- Primary Other dyspnea and respiratory abnormality BMI 40.0-44.9, adult ([facility]) Body Mass Index 40.0-44.9, adult LEONOR (obstructive sleep apnea) Obstructive sleep apnea (adult) (pediatric) Snoring Other dyspnea and respiratory abnormality Lung mass Swelling, mass, or lump in chest Morbid obesity ([facility]/HCC) Morbid obesity Insomnia Insomnia, unspecified Painful orthopaedic hardware ([facility])- Primary documented in this encounter Administered Medications Inactive Administered Medications - up to 3 most recent administrations Medication Order MAR Action Action Date Dose Rate Site Generic Radiopharmaceutical 44.2 millicurie 44.2 millicurie, Intravenous, IMG once as needed, 44.2 mCi myoview for stress, 1 dose, Starting on Thu03/24/22 at 1346, Until Thu03/24/22 at 0900 Given 03/24/2022 9:00 AM NURSE CHEMICAL DEPENDENCY 44.2 millicuries Left Arm documented in this encounter Additional Health Concerns Assessment Noted Time PHQ-9 Depression Total Score: 0 10/26/19 22 11:07 AM CDT documented as of this encounter Care Teams Software Project Lead Relationship Specialty Start Date End Date Clara Stanley APNP [address] [place] [address] PCP - General NURSE PRACTITIONER 06/01/18 Dominick Mccloud MD [facility]. [facility] [address] [place] [address] [place] Waiter/Waitress First Class CARDIOVASCULAR DISEASE 03/28/19 Alexis Lopez MD [address] [place] [address] [place] [address] PULMONARY DISEASE 10/21/19 documented as of this encounter
--- OUTSIDE RECORDS SUMMARY | 2024-03-02 03:20 | XMS_ITS | Encounter Summary ---
Author Organization [facility] Address [address] [place] [address]. [place], [place] [address] [place] [address] Care Team Providers Care Rn Anesthesiology Name Role Phone Clara Stanley Primary Care Provider [phone] Dominick Mccloud MD Unavailable [phone] Alexis Lopez MD Unavailable [phone] Reason for Visit * Reason Comments CT (SCAN) Encounter Details Date Type Department Care Team (Latest Contact Info) Description 09/19/2020 Scan HEALTH INFO SRVCS Scanned, Documents CT (SCAN) Social History Tobacco Use Types Packs/Day [...] AM [facility] Hospital Encounter [facility] [place] [address] Antwan Stone, DIEGO [address], [place] [address] 03/28/2024 7:30 AM CERTIFIED NOVELL ADMINISTRATOR Anesthesia Event [place] [address] Shanelle Avila, RAEANN [address] [place] [address] 03/28/2024 7:30 AM CERTIFIED NOVELL ADMINISTRATOR - 03/28/2024 8:48 AM CERTIFIED NOVELL ADMINISTRATOR Surgery [facility] [place] [address] Antwan cruz, DIEGO [address] [place] [address] REMOVAL OF HARDWARE LEFT FOOT 04/05/2024 8:30 AM CERTIFIED NOVELL ADMINISTRATOR Office Visit Darren Chaudhari-O'F allon THREE [facility], [facility] [address] [place] [address] Dominick Mccloud MD Three [facility]. [facility] [address] [place] [address] Scheduled Procedures Name Priority Associated Diagnoses Date/Ti me REMOVAL PLATE SCREW OR PIN SCHED BY FAX 02/08/24 KAYLIE PHONE ASSESS 03/28/2024 7:30 AM CERTIFIED NOVELL ADMINISTRATOR documented as of this encounter Procedures Procedure Name Priority Date/Time Associated Diagnosis Comments CT GENERIC 09/19/2020 documented in this encounter Results * CT GENERIC (09/19/2020) Anatomical Region Laterality Modality Other 09/19/2020 Narrative 09/19/2020 Ordered by an unspecified provider. us Documents Scanned SCANNING Final Result documented in this encounter Visit Diagnoses Not on filedocumented in this encounter Additional Health Concerns Assessment Noted Time PHQ-9 Depression Total Score: 4 03/28/19 21 1:42 PM CERTIFIED NOVELL ADMINISTRATOR documented as of this encounter Care Teams Rn Anesthesiology Relationship Specialty Start Date End Date Clara Stanley APNP [address] [place] [address] PCP - General NURSE PRACTITIONER 06/01/18 Dominick Mccloud MD [place] [place] [address] [place] Manager Storage CARDIOVASCULAR DISEASE 03/28/19 Alexis Lopez MD [address] [facility] [address] [place] [address] PULMONARY DISEASE 10/21/19 documented as of this encounter
--- OUTSIDE RECORDS SUMMARY | 2024-03-02 03:20 | XMS_ITS | Encounter Summary ---
Author Organization [facility] Address [address] [place] [address]. [place], [place] [address] [place] [address] Care Team Providers Care Architectural Wood Model Maker Name Role Phone Clara Stanley Primary Care Provider [phone] Dominick Mccloud MD Unavailable [phone] Alexis Lopez MD Unavailable [phone] Encounter Details Date Type Department Care Team (Latest Contact Info) Description 03/11/2022 Travel Social History Tobacco Use Types Packs/Day [...] suspected to have Coronavirus/COVID-19? No / Unsure 03/11/2022 10:14 AM SURGICAL SERVICES MANAGER documented as of this encounter Plan of Treatment Upcoming Encounters Date Type Department Care Team (Late st Contact Info) Description 03/28/2024 7:30 AM SURGICAL SERVICES MANAGER Hospital Encounter [facility] [place] [place] [address] Antwan Stone, DIEGO [address], [place] [address] 03/28/2024 7:30 AM SURGICAL SERVICES MANAGER Anesthesia [place] [address] Shanelle Avila, TRANSFORMATION SPECIALIST [address] [place] [address] 03/28/2024 7:30 AM SURGICAL SERVICES MANAGER - 03/28/2024 8:48 AM SURGICAL SERVICES MANAGER [place] [address] Antwan Stone, DIEGO [address] [place], [place] [address] REMOVAL OF HARDWARE LEFT FOOT 04/05/2024 8:30 AM SURGICAL SERVICES MANAGER Office Visit Darren Chaudhari-O'F allon THREE [facility], [facility] [address] [place] [address] Dominick Mccloud MD Three [facility]. [facility] [address] [place] [address] Scheduled Procedures Name Priority Associated Diagnoses Date/Ti me REMOVAL PLATE SCREW OR PIN SCHED BY FAX 02/08/24 JUANITOS PHONE ASSESS 03/28/2024 7:30 AM SURGICAL SERVICES MANAGER documented as of this encounter Visit Diagnoses Not on filedocumented in this encounter Additional Health Concerns Assessment Noted Time PHQ-9 Depression Total Score: 0 10/26/19 22 11:07 AM CDT documented as of this encounter Care Teams Architectural Wood Model Maker Relationship Specialty Start Date End Date Clara Stanley APNP [address] [place] [address] PCP - General NURSE PRACTITIONER 06/01/18 Dominick Mccloud MD [facility] [address] [place] [address] [place] Occupational Health Physician CARDIOVASCULAR DISEASE 03/28/19 Alexis Lopez MD [address] [facility] [address] [address] PULMONARY DISEASE 10/21/19 documented as of this encounter
--- OUTSIDE RECORDS SUMMARY | 2024-03-02 03:20 | XMS_ITS | Encounter Summary ---
Author Organization [facility] Address [address] [place] [address]. [place], [place] [address] [place] [address] Care Team Providers Care Corrections Lieutenant Name Role Phone Clara Stanley Primary Care Provider [phone] Dominick Mccloud MD Unavailable [phone] Alexis Lopez MD Unavailable [phone] Encounter Details Date Type Department Care Team (Latest Contact Info) Description 12/10/2021 Scan Crunchyroll SRVCS Scanned, Documents Social History Tobacco Use [...] AM [facility] Hospital Encounter [facility] [place] [address] Antwan Stone, DPÁngel [address] [place], [place] [address] 03/28/2024 7:30 AM LINER ASSEMBLER Anesthesia Event [facility] [place] [address] Shanelle Avila, TERMINAL SYSTEM OPERATOR [address] [place] [address] 03/28/2024 7:30 AM LINER ASSEMBLER - 03/28/2024 8:48 AM LINER ASSEMBLER Surgery [facility] [place] [address] Antwan Stone, DIEGO [address] [place] [address] REMOVAL OF HARDWARE LEFT FOOT 04/05/2024 8:30 AM LINER ASSEMBLER Office Visit [place] Fara-O'F allon THREE [facility], [facility] [address] [place] [address] Dominick Mccloud MD Three [facility]. [facility] [address] [place] [address] Scheduled Procedures Name Priority Associated Diagnoses Date/Ti me REMOVAL PLATE SCREW OR PIN SCHED BY FAX 02/08/24 [facility] PHONE ASSESS 03/28/2024 7:30 AM LINER ASSEMBLER documented as of this encounter Visit Diagnoses Not on filedocumented in this encounter Additional Health Concerns Assessment Noted Time PHQ-9 Depression Total Score: 0 10/26/19 22 11:07 AM CDT documented as of this encounter Care Teams Corrections Lieutenant Relationship Specialty Start Date End Date Clara Stanley APNP [address] [place] [address] PCP - General NURSE PRACTITIONER 3/19/19 Dominick Mccloud MD [facility] [address] [place] [address] [place] [employer] Engineering Technician CARDIOVASCULAR DISEASE 03/28/19 Alexis Lopez MD [address] [facility] [address] [place] [address] PULMONARY DISEASE 10/21/19 documented as of this encounter
--- OUTSIDE RECORDS SUMMARY | 2024-03-02 03:20 | XMS_ITS | Encounter Summary ---
Author Organization [facility] Address [address] [place] [address]. [place], [place] [address] [place] [address] Care Team Providers Care Airport Control Operator Name Role Phone Clara Stanley Primary Care Provider [phone] Dominick Mccloud MD Unavailable [phone] Alexis Lopez MD Unavailable [phone] Encounter Details Date Type Department Care Team (Latest Contact Info) Description 01/23/2021 Travel Social History Tobacco Use Types Packs/Day [...] COVID-19? No / Unsure 01/23/2021 1:35 PM INTERPRETIVE PROGRAM COORDINATOR documented as of this encounter Plan of Treatment Upcoming Encounters Date Type Department Care Team (Late st Contact Info) Description 03/28/2024 7:30 AM INTERPRETIVE PROGRAM COORDINATOR Hospital Encounter [facility] [place] [address] Antwan Stone, DIEGO [address], [place] [address] 03/28/2024 7:30 AM INTERPRETIVE PROGRAM COORDINATOR Anesthesia [place] [address] Shanelle Avila, MERCANTILE AGENT [address] [place] [address] 03/28/2024 7:30 AM INTERPRETIVE PROGRAM COORDINATOR - 03/28/2024 8:48 AM INTERPRETIVE PROGRAM COORDINATOR [place] [address] Antwan Stone, DIEGO [address], [place] [address] REMOVAL OF HARDWARE LEFT FOOT 04/05/2024 8:30 AM INTERPRETIVE PROGRAM COORDINATOR Office Visit Darren Chaudhari-Omar'F allon THREE [facility], [facility] [address] [place] [address] Dominick Mccloud MD Three [facility]. [facility] [address] [place] [address] Scheduled Procedures Name Priority Associated Diagnoses Date/Ti me REMOVAL PLATE SCREW OR PIN SCHED BY FAX 02/08/24 JUANITOS PHONE ASSESS 03/28/2024 7:30 AM INTERPRETIVE PROGRAM COORDINATOR documented as of this encounter Visit Diagnoses Not on filedocumented in this encounter Additional Health Concerns Assessment Noted Time PHQ-9 Depression Total Score: 4 03/28/19 21 1:42 PM INTERPRETIVE PROGRAM COORDINATOR documented as of this encounter Care Teams Airport Control Operator Relationship Specialty Start Date End Date Clara Stanley APNP [address] [place] [address] PCP - General NURSE PRACTITIONER 06/01/18 Dominick Mccloud MD [facility] [address] [place] [address] [place] Dog Groomer CARDIOVASCULAR DISEASE 03/28/19 Alexis Lopez MD [address] [facility] [address] [address] PULMONARY DISEASE 10/21/19 documented as of this encounter
--- OUTSIDE RECORDS SUMMARY | 2024-03-02 03:20 | XMS_ITS | Encounter Summary ---
Author Organization [facility] Address [address] [place] [address]. [place], [place] [address] [place] [address] Care Team Providers Care Trailer Truck Driver Name Role Phone Clara Stanley Primary Care Provider [phone] Dominick Mccloud MD Unavailable [phone] Alexis Lopez MD Unavailable [phone] Encounter Details Date Type Department Care Team (Latest Contact Info) Description 02/21/2021 Scan HEALTH INFO SRVCS Scanned, Documents Social [...] COVID-19? No / Unsure 01/23/2021 1:35 PM STRIKE ON 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 documented as of this encounter Plan of Treatment Upcoming Encounters Date Type Department Care Team ( st Contact Info) Description 03/28/2024 7:30 AM STRIKE ON 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 Hospital Encounter [facility] ONE [facility] [place] [address] Antwan Stone, DIEGO [address], [place] [address] 03/28/2024 7:30 AM STRIKE ON 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 Anesthesia [place] [address] Shanelle Avila, BATCH ATTENDANT [address] [place] [address] 03/28/2024 7:30 AM STRIKE ON 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 - 03/28/2024 8:48 AM STRIKE ON 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 Surgery [place] [address] Antwan Stone, DIEGO [address], [place] [address] REMOVAL OF HARDWARE LEFT FOOT 04/05/2024 8:30 AM STRIKE ON 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 Office Visit Darren Chaudhari-O'F allon THREE [facility], [facility] [address] [place] [address] Dominick Mccloud MD Three [facility]. [facility] [address] [place] [address] Scheduled Procedures Name Priority Associated Diagnoses Date/Ti me REMOVAL PLATE SCREW OR PIN SCHED BY FAX 02/08/24 [facility] PHONE ASSESS 03/28/2024 7:30 AM STRIKE ON 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 documented as of this encounter Visit Diagnoses Not on filedocumented in this encounter Additional Health Concerns Assessment Noted Time PHQ-9 Depression Total Score: 4 03/28/19 21 1:42 PM STRIKE ON 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 documented as of this encounter Care Teams Trailer Truck Driver Relationship Specialty Start Date End Date Clara Stanley APNP [address] [place] [address] PCP - General NURSE PRACTITIONER 06/01/18 Dominick Mccloud MD [facility] [address] [place] [address] [place] Assistant Tennis Coach CARDIOVASCULAR DISEASE 03/28/19 Alexis Lopez MD [address] [facility] [address] [place] [address] PULMONARY DISEASE 10/21/19 documented as of this encounter
--- OUTSIDE RECORDS SUMMARY | 2024-03-02 03:20 | XMS_ITS | Encounter Summary ---
Author Organization [facility] Address [address] [place] [address]. [place], [place] [address] [place] [address] Care Team Providers Care Hall Monitor Name Role Phone Clara Stanley Primary Care Provider [phone] Dominick Mccloud MD Unavailable [phone] Alexis Lopez MD Unavailable [phone] Encounter Details Date Type Department Care Team (Late st Contact Info) Description 02/18/2022 Scan [facility] Services [place], [place] [id number] Scanned, [facility] Social History Tobacco Use Types Packs/Day Years [...] suspected to have Coronavirus/COVID-19? No / Unsure 02/12/2022 9:06 AM FELLER BUNCHER OPERATOR documented as of this encounter Plan of Treatment Upcoming Encounters Date Type Department Care Team (Late st Contact Info) Description 03/28/2024 7:30 AM FELLER BUNCHER OPERATOR Hospital Encounter [facility] [place] [address] Antwan Stone, DIEGO [address], [place] [address] 03/28/2024 7:30 AM FELLER BUNCHER OPERATOR Anesthesia Event [facility] [place] [address] Shanelle Avila, TRAFFIC DIRECTOR [address] [facility] [place] [address] 03/28/2024 7:30 AM FELLER BUNCHER OPERATOR - 03/28/2024 8:48 AM FELLER BUNCHER OPERATOR Surgery [facility] [place] [address] Antwan Stone, DIEGO [address], [place] [address] REMOVAL OF HARDWARE LEFT FOOT 04/05/2024 8:30 AM FELLER BUNCHER OPERATOR Office Visit [facility] THREE [facility], [facility] [address] [place] [address] Dominick Mccloud MD Three [facility]. [facility] [address] [place] [address] Scheduled Procedures Name Priority Associated Diagnoses Date/Ti me REMOVAL PLATE SCREW OR PIN SCHED BY FAX 02/08/24 KAYLIE PHONE ASSESS 03/28/2024 7:30 AM FELLER BUNCHER OPERATOR documented as of this encounter Visit Diagnoses Not on filedocumented in this encounter Additional Health Concerns Assessment Noted Time PHQ-9 Depression Total Score: 0 08/12/20 22 11:07 AM CDT documented as of this encounter Care Teams Hall Monitor Relationship Specialty Start Date End Date Clara Stanley APNP [facility]1 [place] [address] PCP - General NURSE PRACTITIONER 06/01/18 Dominick Mccloud MD [address] [address] [place] Lollypop Machine Operator CARDIOVASCULAR DISEASE 03/28/19 Alexis Lopez MD [address] [address] PULMONARY DISEASE 10/21/19 documented as of this encounter
--- OUTSIDE RECORDS SUMMARY | 2024-03-02 03:20 | XMS_ITS | Encounter Summary ---
Author Organization [facility] Address [address] [place] [address]. [place], [place] [address] [place] [address] Care Team Providers Care Snow Ranger Name Role Phone Clara Stanley Primary Care Provider [phone] Dominick Mccloud MD Unavailable [phone] Alexis Lopez MD Unavailable [phone] Encounter Details Date Type Department Care Team (Latest Contact Info) Description 09/11/2021 Scan [employer] SRV[facility] Scanned, Documents Social History Tobacco [...] 7:30 AM [facility] Hospital Encounter [facility] [place] [address] Antwan Stone, DPÁngel [address], [place] [address] 03/28/2024 7:30 AM PHP DEVELOPER Anesthesia Event [facility] [place] [place] [address] Shanelle Avila, RAEANN [address] [place] [address] 03/28/2024 7:30 AM PHP DEVELOPER - 03/28/2024 8:48 AM PHP DEVELOPER Surgery [facility] [place] [address] Antwan Stone, DIEGO [address] [place] [address] REMOVAL OF HARDWARE LEFT FOOT 04/05/2024 8:30 AM PHP DEVELOPER Office Visit [place] Hom[place]ela Chaudhari-O'F allon THREE [facility], [email or web address] [address] [place] [address] Dominick Mccloud MD Three [facility]. [facility] [[email or web address] [address] [place] [address] Scheduled Procedures Name Priority Associated Diagnoses Date/Ti me REMOVAL PLATE SCREW OR PIN SCHED BY FAX 02/08/24 [facility] PHONE ASSESS 03/28/2024 7:30 AM PHP DEVELOPER documented as of this encounter Visit Diagnoses Not on filedocumented in this encounter Additional Health Concerns Assessment Noted Time PHQ-9 Depression Total Score: 4 03/28/19 21 1:42 PM PHP DEVELOPER documented as of this encounter Care Teams Snow Ranger Relationship Specialty Start Date End Date Clara Stanley APNP [address] [place] [address] PCP - General NURSE PRACTITIONER 06/01/18 Dominick Mccloud MD [facility]. [facility] [[email or web address] [address] [place] [address] [place] Oracle Developer CARDIOVASCULAR DISEASE 03/28/19 Alexis Lopez MD [address] [facility] [address] [address] [place] [address] PULMONARY DISEASE 10/21/19 documented as of this encounter
--- OUTSIDE RECORDS SUMMARY | 2024-03-02 03:20 | XMS_ITS | Encounter Summary ---
Author Organization [facility] Address [address] [place] [address]. [place], [place] [address] [place] [address] Care Team Providers Care Vegetable Farming Supervisor Name Role Phone Lizeth Clara CARRINGTON Primary Care Provider [phone] Dominick Mccloud MD Unavailable [phone] Alexis Lopez MD Unavailable [phone] Reason for Visit * Imaging (Routine) - Closed Specialty Diagnoses / Procedures Referred By Contac t Referred To Contact RADIOLOGY Diagnoses PEARCE (dyspnea on exertion) Procedures USE ECHOCARDIOGRAM W CON USE ECHOCARDIOGRAM Dominick Mccloud MD Three [address] [address] Phone: tel: fax: Referral ID Status Reason Start Date Expiration Date Visits Re quested Visits Authorized [id number] Closed 03/04/2022 04/18/2022 1 1 Encounter Details Date Type Department Care Team (Late st Contact Info) Description 03/18/2022 8:26 AM TEACHERS ASSISTANT - 03/18/2022 11:59 PM [facility] Hospital Encounter [facility] ONE [facility] [place], [place] [id number] Dominick Mccloud MD Three [address] [id number] Discharge Disposition: Home or Self Care (Routine [...] Coronavirus/COVID-19? No / Unsure 03/18/2022 8:25 AM TEACHERS ASSISTANT documented as of this encounter Medications at [...] mouth daily. vitamin D3, cholecalciferol, 1.25 MG (69232 UT) capsule Take 1 capsule (50,000 Units [...] 7:30 AM [facility] Hospital Encounter [facility] [place] [address] Antwan Stone DPM [address], [place] [address] 03/28/2024 7:30 AM TEACHERS ASSISTANT Anesthesia Event [place] [address] Shanelle Avila, CHIEF INTERNAL AUDITOR 1 [place] [address] 03/28/2024 7:30 AM TEACHERS ASSISTANT - 03/28/2024 8:48 AM TEACHERS ASSISTANT Surgery [place] [address] Antwan Stone DPM [address] [place] [address] REMOVAL OF HARDWARE LEFT FOOT 04/05/2024 8:30 AM TEACHERS ASSISTANT Office Visit [facility]-O'F allon THREE [facility], [address] [address] Dominick Mccloud MD Three [facility]. [facility] [address] [place] [address] Scheduled Procedures Name Priority Associated Diagnoses Date/Ti me REMOVAL PLATE SCREW OR PIN SCHED BY FAX 02/08/24 [facility] PHONE ASSESS 03/28/2024 7:30 AM TEACHERS ASSISTANT documented as of this encounter Procedures Procedure Name Priority Date/Time Associated Diagnosis Comments USE ECHOCARDIOGRAM W CON Routine 03/18/2022 9:21 AM TEACHERS ASSISTANT PEARCE (dyspnea on exertion) documented in this encounter Results * USE ECHOCARDIOGRAM W CON (03/18/2022 9:21 AM TEACHERS ASSISTANT) Anatomical Region Laterality Modality NA Echocardiogram 03/18/2022 8:3 7 AM TEACHERS ASSISTANT Narrative 03/19/2022 10:29 PM TEACHERS ASSISTANT ?Echocardiography Report Pat.Name: ??MP BULLOCK.ID: ?[id number] ? St.Date: ?? 03/18/2022 ? Refer.: ??[id number] STEVEN Knox ? EWDPROV ?EWDPROV Exam Time: 8:37:00 AM ? Study Type:ECHO WITH CARDIAC DOPPLER COMP Height: ?75 in ? Weight: ?360 lb ? BSA: ? 2.82 m2 ?Age: ??1965,56Y ? Sex: ? M ? BP: ?139/65 ? HR: ?84 bpm ?Sonogrphr: Katrina Almaraz RDCS ? Pat. Stat.:Outpatient ? Reason for Study:Dyspnea on exertion Procedures: 2D, M-mode, Doppler, Color Flow, Definity was used to enhance endocardial definition. The study quality is technically difficult. Diagnostic quality after administration of myocardial contrast. Race: ?W ? ++++++++++++++++++++++++++++++++++++ SUMMARY: ++++++++++++++++++++++++++++++++++++ The left ventricular size is normal. Estimated left ventricular ejection fraction is 55-60%. Left ventricular diastolic function is normal. Wall motion appears normal in all segments. The right ventricular size is mildly enlarged. Right ventricular systolic function is normal. No significant valvular abnormalities. ++++++++++++++++++++++++++++++++++++ FINDINGS: ++++++++++++++++++++++++++++++++++++ LV: ? The left ventricular size is normal. Estimated left ?ventricular ejection fraction is 55-60%. Mild concentric ?left ventricular hypertrophy. Left ventricular diastolic ?function is normal. WM: ? Wall motion appears normal in all segments. RV: ? The right ventricular size is mildly enlarged. Right ?ventricular systolic function is normal. IVS: ?No evidence of ventricular septal defect. LA: ? The left atrial size is normal. The left atrial volume is ?normal ( less than 34 ml/M2). RA: ? Right atrial size is normal. IAS: ?Atrial septum appears intact. LUCIA: ? No evidence of pericardial effusion. AO: ? Normal aortic root. PA: ? Estimated right atrial pressure of 15 mmHg. SVn: ?Inferior vena cava is mildly enlarged. Inferior vena cava ?shows <50% collapse with respiration consistent with ?elevated right atrial pressure. AV: ? The aortic valve is trileaflet. No evidence of aortic valve ?stenosis. No evidence of aortic valve regurgitation. MV: ? No evidence of significant mitral regurgitation. No evidence ?of mitral stenosis. PV: ? No evidence of pulmonic valve stenosis. No evidence of ?pulmonic regurgitation. TV: ? A trace of tricuspid regurgitation. No evidence of tricuspid ?valve stenosis. ++++++++++++++++++++++++++++++++++++ MEASUREMENTS: ++++++++++++++++++++++++++++++++++++ ?DOPPLER LVOT ?? LVOTpkPG ? 2 mmHg ?LVOTmnPG ? 1 mmHg LVOTpkVel ? 75.6 cm/s (70-110)+ LVOT SV ? 51 ml ?? LVOT TVI ?14.6 cm ? Right Atrium ?? RA Press ?15 mmHg ?Charles's Disk ? 20 ? Pulmonary Veins ?? PVnpkVeld ? 51.4 cm/s ?PVnVs/Vd ? 1.2 ? PVnpkVels ? 61.1 cm/s ?PVn A Dur ?106 msec AV Forward Flow AV TVI ?20.9 cm ?AV pkPG ?4 mmHg AV pkVel ? 103 cm/s (100-170)+ Area (TVI) ?2.42 cm2 ??(3-5)* AV mnPG ?3 mmHg ?Area (Mahad) ?2.54 cm2 ??(3- 5)* MV Forward Flow MV DeTm ?184 msec ? MV pkE ?92.2 cm/s (60-130)+ MV E/A ? 1.1 ? MV pkA ?85.6 cm/s PV Forward Flow PV pkVel ?94.7 cm/s (60-90)+* PV AC ?114 msec PV pkPG ?4 mmHg ? TV Regurg Flow TV pkPG ? 25 mmHg ?TV pkVel ? 252 cm/s (30- 70)* Right Ventricle ?? RVsys P ? 40 mmHg ?Right Ventricle ??13.5 cm/s TV Forward Flow TV E/A ? 1.1 ? TV pkA ?68.7 cm/s TV pkE ?72.5 cm/s ? Lat E' ?? Lat e ? 12.3 cm/s ? Lat E/E' ?? Lat E/e ?7.5 ? Med E' ?? Med e ? 11.5 cm/s ? Med E/E' ?? Med E/e ?8 ? Aortic Valve ?? Aortic Valve Ar ??0.86 ?Aortic Valve Ve ??0.73 ? PV Antegrade Flow Acceleration Sl ?? 728 cm/s2 ?2D Left Ventricle ?? LVIDd ? 4.87 cm ?? (3.6-5.2)+ LV ESV ?81.7 ml ?? LVIDs ? 3.65 cm ?? (2.3-3.9)+ LV ESV ?91.8 ml ?? LngAxd ?8.83 cm ?LVESV BP ?86.6 ml ?? LngAxd ?8.56 cm ?LV EF ? 53.3 % ?? LV EDV ? 175 ml ?LV EF ? 57.1 % ?? LV EDV ? 214 ml ?LV EF BP ?55.8 % ?? LVEDV BP ? 196 ml ?LV SV ? 93.3 ml ?? LngAxs ?7.69 cm ?LV SV ?122 ml ?? LngAxs ?7.75 cm ?LV SV BP ? 109 ml ?? LVPW ?? LVPWd ? 1.24 cm ? Ventricular Septum ?? IVSd ?1.21 cm ? Left Atrium ?? LA VOLBP ?77.8 ml ? Aorta ?? Ao Rtd ? 3.6 cm ? LVOT ?? LVOT ? 2.1 cm ?LVOTArea ?3.46 cm2 Ratios ?? IVS LA Biplane LAVol I BP ?27.6 ml/m2 ? RA Single Plane Right Atrium MO ??10.1 mm ? Right Atrium Sy ??52.9 ml ?? Right Atrium Sy ?52 mm ? Right Atrium Sy ??18.8 ml/m2 Right Atrium Sy ?18 cm2 ? Right Ventricle ?? Right Ventricle ??39.4 mm ? Right Ventricle ??38.4 mm ?? Major Murray ?99.7 mm ?MMODE Ratios ?? LA/Ao ?1.2 ?(0.87-1.1)* Aorta ?? Ao Rt ?3.5 cm ?? (2-3.7) Left Atrium ?? LAIDs ?4.2 cm ? TA ?? Tricuspid Annul ??22.9 mm ? <Electronic Signature> 03/19/2022 10:29 PM Dominick Mccloud M.D. Procedure Note Marge Bansal MD - 03/19/2022 Echocardiography Report Pat.Name: MP BULLOCK Sage.ID: [id number] St.Date: 03/18/2022 Refer.: [id number] STEVEN Knox EWDPROV EWDPROV Exam Time: 8:37:00 AM Study Type:ECHO WITH CARDIAC DOPPLER COMP Height: 75 in Weight: 360 lb BSA: 2.82 m2 Age: 2 1965,56Y Sex: M BP: 139/65 HR: 84 bpm Sonogrphr: Katrina Almaraz [facility] Pat. Stat.:Outpatient Reason for Study:Dyspnea on exertion Procedures: 2D, M-mode, Doppler, Color Flow, Definity was used to enhance endocardial definition. The study quality is technically difficult. Diagnostic quality after administration of myocardial contrast. Race: W ++++++++++++++++++++++++++++++++++++ SUMMARY: ++++++++++++++++++++++++++++++++++++ The left ventricular size is normal. Estimated left ventricular ejection fraction is 55-60%. Left ventricular diastolic function is normal. Wall motion appears normal in all segments. The right ventricular size is mildly enlarged. Right ventricular systolic function is normal. No significant valvular abnormalities. ++++++++++++++++++++++++++++++++++++ FINDINGS: ++++++++++++++++++++++++++++++++++++ LV: The left ventricular size is normal. Estimated left ventricular ejection fraction is 55-60%. Mild concentric left ventricular hypertrophy. Left ventricular diastolic function is normal. WM: Wall motion appears normal in all segments. RV: The right ventricular size is mildly enlarged. Right ventricular systolic function is normal. IVS: No evidence of ventricular septal defect. LA: The left atrial size is normal. The left atrial volume is normal ( less than 34 ml/M2). RA: Right atrial size is normal. IAS: Atrial septum appears intact. LUCIA: No evidence of pericardial effusion. AO: Normal aortic root. PA: Estimated right atrial pressure of 15 mmHg. SVn: Inferior vena cava is mildly enlarged. Inferior vena cava shows <50% collapse with respiration consistent with elevated right atrial pressure. AV: The aortic valve is trileaflet. No evidence of aortic valve stenosis. No evidence of aortic valve regurgitation. MV: No evidence of significant mitral regurgitation. No evidence of mitral stenosis. PV: No evidence of pulmonic valve stenosis. No evidence of pulmonic regurgitation. TV: A trace of tricuspid regurgitation. No evidence of tricuspid valve stenosis. ++++++++++++++++++++++++++++++++++++ MEASUREMENTS: ++++++++++++++++++++++++++++++++++++ DOPPLER LVOT LVOTpkPG 2 mmHg LVOTmnPG 1 mmHg LVOTpkVel 75.6 cm/s (70-110)+ LVOT SV 51 ml LVOT TVI 14.6 cm Right Atrium RA Press 15 mmHg Charles's Disk 20 Pulmonary Veins PVnpkVeld 51.4 cm/s PVnVs/Vd 1.2 PVnpkVels 61.1 cm/s PVn A Dur 106 msec AV Forward Flow AV TVI 20.9 cm AV pkPG 4 mmHg AV pkVel 103 cm/s (100-170)+ Area (TVI) 2.42 cm2 (3-5)* AV mnPG 3 mmHg Area (Mahad) 2.54 cm2 (3-5)* MV Forward Flow MV DeTm 184 msec MV pkE 92.2 cm/s (60-130)+ MV E/A 1.1 MV pkA 85.6 cm/s PV Forward Flow PV pkVel 94.7 cm/s (60-90)+* PV AC 114 msec PV pkPG 4 mmHg TV Regurg Flow TV pkPG 25 mmHg TV pkVel 252 cm/s (30-70)* Right Ventricle RVsys P 40 mmHg Right Ventricle 13.5 cm/s TV Forward Flow TV E/A 1.1 TV pkA 68.7 cm/s TV pkE 72.5 cm/s Lat E' Lat e 12.3 cm/s Lat E/E' Lat E/e 7.5 Med E' Med e 11.5 cm/s Med E/E' Med E/e 8 Aortic Valve Aortic Valve Ar 0.86 Aortic Valve Ve 0.73 PV Antegrade Flow Acceleration Sl 728 cm/s2 2D Left Ventricle LVIDd 4.87 cm (3.6-5.2)+ LV ESV 81.7 ml LVIDs 3.65 cm (2.3-3.9)+ LV ESV 91.8 ml LngAxd 8.83 cm LVESV BP 86.6 ml LngAxd 8.56 cm LV EF 53.3 % LV EDV 175 ml LV EF 57.1 % LV EDV 214 ml LV EF BP 55.8 % LVEDV BP 196 ml LV SV 93.3 ml LngAxs 7.69 cm LV SV 122 ml LngAxs 7.75 cm LV SV BP 109 ml LVPW LVPWd 1.24 cm Ventricular Septum IVSd 1.21 cm Left Atrium LA VOLBP 77.8 ml Aorta Ao Rtd 3.6 cm LVOT LVOT 2.1 cm LVOTArea 3.46 cm2 Ratios IVS LA Biplane LAVol I BP 27.6 ml/m2 RA Single Plane Right Atrium MO 10.1 mm Right Atrium Sy 52.9 ml Right Atrium Sy 52 mm Right Atrium Sy 18.8 ml/m2 Right Atrium Sy 18 cm2 Right Ventricle Right Ventricle 39.4 mm Right Ventricle 38.4 mm Major Murray 99.7 mm MMODE Ratios LA/Ao 1.2 (0.87-1.1)* Aorta Ao Rt 3.5 cm (2-3.7) Left Atrium LAIDs 4.2 cm TA Tricuspid Annul 22.9 mm <Electronic Signature> 03/19/2022 10:29 PM Dominick Mccloud M.D. Dominick Mccloud MD ECHO Final Result documented in this encounter Visit Diagnoses Diagnosis PEARCE (dyspnea on exertion) Other dyspnea and respiratory abnormality Painful orthopaedic hardware (CMS/HCC)- Primary documented in this encounter Administered Medications Inactive Administered Medications - up to 3 most recent administrations Medication Order MAR Action Action Date Dose Rate Site perflutren lipid microsphere (DEFINITY) injection 2 mL 2 mL, Intravenous, IMG once as needed, Contrast, 1 dose, Starting on Thu03/18/22 at 0921, Until Thu03/18/22 at 0925, Administer over 30-60 seconds. Follow with 10 mL saline flush. Given 03/18/2022 9:25 AM TEACHERS ASSISTANT 2 mLs documented in this encounter Additional Health Concerns Assessment Noted Time PHQ-9 Depression Total Score: 0 10/26/19 22 11:07 AM CDT documented as of this encounter Care Teams Vegetable Farming Supervisor Relationship Specialty Start Date End Date Clara Stanley APNP [address] [place] [address] PCP - General NURSE PRACTITIONER 06/01/18 Dominick Mccloud MD [facility] [address] [place] [address] [place] On Site Nurse CARDIOVASCULAR DISEASE 03/28/19 Alexis Lopez MD [address] [address] PULMONARY DISEASE 10/21/19 documented as of this encounter
--- OUTSIDE RECORDS SUMMARY | 2024-03-02 03:20 | XMS_ITS | Encounter Summary ---
Author Organization [facility] Address [address] [place] [address]. [place], [place] [address] [place] [address] Care Team Providers Care Deboning Team Leader Name Role Phone Clara Stanley Primary Care Provider [phone] Dominick Mccloud MD Unavailable [phone] Alexis Lopez MD Unavailable [phone] Reason for Referral * Consultation (Routine) - Closed Specialty Diagnoses / Procedures Referred By Erik galdamez Referred To Contact GASTROENTEROLOGY Diagnoses Colon cancer screening Clara Stanley APNP [address] [place] [address] Phone: tel: fax: [facility] [address] [place] [address] Phone: tel: fax: Referral ID Status Reason Start Date Expiration Date Visits Re quested Visits Authorized [id number] Closed 10/08/2021 11/08/2022 100 100 Scheduling Instructions Pt has an appt the first week in October. They are wanting Dr. Pineda [facility] office. Reason for Visit * Reason Onset Date Comments Referral 10/07/2021 Encounter Details Date Type Department Care Team (Late st Contact Info) Description 10/07/2021 Telephone [facility] [address] [place] [address] Clara Stanley, ZEB [address] [place] [address] Referral Social History Tobacco Use Types Packs/Day Years [...] as of this encounter Progress Notes * Shanelle Sauer MA - 10/08/2021 4:14 PM CDTAddended by: SHANELLE SAUER on: 10/08/2021 04:14 PM Modules accepted: Orders * Shanelle Sauer MA - 10/08/2021 4:05 PM CDT Referral team notified and referral is in chart. BB 10/08/2021 * Shanelle Sauer MA - 10/07/2021 4:09 PM CDT Appt is first week in October. Referral for Coloscopy requesting Dr. Denver WOOD 10/07/2021 documented in this encounter Plan of Treatment Upcoming Encounters Date Type Department Care Team (Late st Contact Info) Description 03/28/2024 7:30 AM [facility] Hospital Encounter [facility] [place] [address] Antwan Stone DPM [address], [place] [address] 03/28/2024 7:30 AM COAL HANDLING SUPERVISOR Anesthesia Event [facility] [place] [address] Shanelle Avila, LOOM CHANGER 1 [place] [address] 03/28/2024 7:30 AM COAL HANDLING SUPERVISOR - 03/28/2024 8:48 AM COAL HANDLING SUPERVISOR Surgery [facility] [place] [address] Antwan Stone DPM [address] [place] [address] REMOVAL OF HARDWARE LEFT FOOT 04/05/2024 8:30 AM COAL HANDLING SUPERVISOR Office Visit [facility] Cardi[facility]-O'F allon THREE [facility], [facility] [address] [place] [address] Dominick Mccloud MD Three [facility]. [facility] [address] [place] [address] Scheduled Procedures Name Priority Associated Diagnoses Date/Ti me REMOVAL PLATE SCREW OR PIN SCHED BY FAX 02/08/24 [facility] PHONE ASSESS 03/28/2024 7:30 AM COAL HANDLING SUPERVISOR Scheduled Referrals Name Type Priority Associated Diagnoses Orde r Schedule Ambulatory referral to Gastroenterology (OTHER) Referral Routine Colon Cancer Screening Ordered: 10/08/2021 documented as of this encounter Visit Diagnoses Diagnosis Colon cancer screening- Primary Special screening for malignant neoplasms, colon Painful orthopaedic hardware (CMS/HCC)- Primary documented in this encounter Additional Health Concerns Assessment Noted Time PHQ-9 Depression Total Score: 4 03/28/19 21 1:42 PM COAL HANDLING SUPERVISOR documented as of this encounter Care Teams Deboning Team Leader Relationship Specialty Start Date End Date Clara Stanley APNP [address] [place] [address] PCP - General NURSE PRACTITIONER 06/01/18 Dominick Mccloud MD [address] [address] [place] Video Library Assistant CARDIOVASCULAR DISEASE 03/28/19 Alexis Lopez MD [address] [address] PULMONARY DISEASE 10/21/19 documented as of this encounter
--- OUTSIDE RECORDS SUMMARY | 2024-03-02 03:20 | XMS_ITS | Encounter Summary ---
Author Organization [facility] Address [address] [place] [address]. [place], [place] [id number] [place] [id number] Care Team Providers Care Tar Heater Name Role Phone Clara Stanley Primary Care Provider [phone] Dominick Mccloud MD Unavailable [phone] Alexis Lopez MD Unavailable [phone] Reason for Visit * Reason Comments Hyperlipidemia Encounter Details Date Type Department Care Team (Late st Contact Info) Description 10/25/2021 10:20 AM CDT Office Visit [facility] Family & Internal Medicine [facility] [address] [place] [address] Clara Stanley APNP [address] [place], [place] [id number] Hyperlipidemia Social History Tobacco Use Types Packs/Day Years [...] AM CDT documented as of this encounter Last Filed Vital Signs Vital Sign Reading Time Taken Comments Blood Pressure 142/88 10/25/2021 11:06 AM CDT Pulse 79 10/25/2021 10:22 AM CDT Temperature 36.4 ??C (97.5 ??F) 10/25/2021 10:22 AM C DT Respiratory Rate 16 10/25/2021 10:22 AM CDT Oxygen Saturation 100% 10/25/2021 10:22 AM CDT Inhaled Oxygen Concentration - - Weight 164.7 kg (363 lb) 10/25/2021 10:22 AM CDT Height 190.5 cm (6' 3 ) 10/25/2021 10:22 AM CDT Body Mass Index 45.37 10/25/2021 10:22 AM CDT documented in this encounter Progress Notes * ZEB Nunn - 10/25/2021 10:20 AM CDT Images from the original note were not included. [facility] FAMILY AND INTERNAL MEDICINE OFFICE VISIT Reason for Visit: Hyperlipidemia History of Present Illness: 56 yo male here today to follow up on his chronic health conditions. HTN - sl elevated initially. He is on amlodipine which is prescribed per his fagot heater helper. Tolerates his meds well with no bothersome side effects. He denies any chest pain, headache, dizziness, heart problems or lower extremity edema. HLD - He takes pravastatin daily. Tolerates well and is due to have his labs checked. LEONOR - sees Dr. Lopez for management of this. He states he tries to wear his CPAP as much as he can tolerate. For the most part, feels rested the next morning. Asthma - sees pulmonology, Dr. Lopez. He states since he had his partial pneumonectomy he has felt a little more short of breath, specifically with exertion than normal. He states this is not a new symptom and has not worsened. He does see a fagot heater helper once yearly and is due for a follow up. Will make appointment He has a hx of non small cell lung cancer and regularly sees a hat finisher. He had a partial right pneumonectomy in May 2019. There was another spot found in his upper lung earlier this year---only had radiation this time. He is not getting lung CT scans every 3 months. He continues to see pulmonology on a regular basis. He does note he does feel more SOB since he had his partial pneumonectomy in 2019. He denies any chest pain. He states the SOB has not worsened over the last 2 years. ROS: Review of Systems Constitutional: Negative for chills and fever. HENT: Negative for congestion. Respiratory: Positive for shortness of breath. Negative for cough. Cardiovascular: Negative for chest pain and palpitations. Gastrointestinal: Negative for abdominal pain and vomiting. Musculoskeletal: Negative for myalgias. Neurological: Negative for dizziness and headaches. Medications: Current Outpatient Medications: ??? albuterol sulfate HFA (PROAIR HFA) 108 (90 Base) MCG/ACT inhaler, Inhale 2 puffs into the lungsevery 6 (six) hours as needed for Wheezing., Disp: 1 Inhaler, Rfl: 0 ??? amLODIPine (NORVASC) 10 MG tablet, Take 1 tablet (10 mg total) by mouth nightly at bedtime. at bedtime, Disp: 90 tablet, Rfl: 3 ??? Budesonide-Formoterol Fumarate (SYMBICORT IN), Inhale 2 Inhalers into the lungs 2 (two) times aday. , Disp: , Rfl: ??? cetirizine (ZYRTEC) 10 MG tablet, Take 10 mg by mouth nightly at bedtime. , Disp: , Rfl: ??? fluticasone propionate 50 MCG/ACT nasal spray, 1 spray by Nasal route daily as needed. , Disp: , Rfl: ??? Multiple Vitamins-Minerals (MULTIVITAMIN ADULT OR), , Disp: , Rfl: ??? pravastatin (PRAVACHOL) 20 MG tablet, Take 1 tablet (20 mg total) by mouth nightly at bedtime. at bedtime, Disp: 90 tablet, Rfl: 3 ??? vitamin C 1000 MG tablet, Take 1,000 mg by mouth daily., Disp: , Rfl: ??? vitamin D3, cholecalciferol, 1.25 MG (10212 UT) capsule, Take 50,000 Units by mouth weekly., Disp: , Rfl: Allergies: No Known Allergies Medical History: Past Medical History: Diagnosis Date ??? 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 Asthma ??? BMI 40.0-44.9, adult ([facility]) 03/28/2020 ??? Depression with anxiety 12/12/2014 ??? GERD (gastroesophageal reflux disease) ??? 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 Hyperlipidemia 02/21/2015 ??? Hypertension, benign 01/15/2017 ??? IIH (idiopathic intracranial hypertension) ??? Morbid obesity ([facility]) 02/21/2015 ??? Non-small cell carcinoma of lung ([facility]) s/p right lobectomy ??? Obesity ??? Varicose vein of leg ??? Wears glasses contacts Surgical History: Past Surgical History: Procedure Laterality Date ??? APPENDECTOMY ??? BRONCHOSCOPY ??? COLONOSCOPY ??? LUMBAR PUNCTURE 03/28/2019 ??? REMOVAL OF LUNG,LOBECTOMY Right 05/26/2019 partial lower lobectomy ??? TONSILLECTOMY Social History: Social History Socioeconomic History ??? Marital status: Tobacco Use ??? Smoking status: Never Smoker ??? Smokeless tobacco: Never Used Vaping Use ??? Vaping Use: Never used Substance and Sexual Activity ??? Alcohol use: Yes Comment: 6 beers weekly ??? Drug use: No ??? Sexual activity: Yes Partners: Female Other Topics Concern ??? Caffeine Concern Yes ??? Special Diet Yes ??? Exercise No ??? Seat Belt Yes Social History Narrative Family History: Family History Problem Relation Name Age of Onset ??? Cancer Mother bone ??? Heart Disease Father 65 PE: Physical Exam Vitals and nursing note reviewed. HENT: Head: Normocephalic and atraumatic. Mouth/Throat: Mouth: Mucous membranes are moist. Pharynx: No posterior oropharyngeal erythema. Eyes: General: No scleral icterus. Conjunctiva/sclera: Conjunctivae [...] Affect: Mood and affect normal. Filed Vitals: 10/25/21 1022 10/25/21 1106 BP: (!) 143/84 (!) 142/88 Pulse: 79 Resp: 16 Temp: 97.5 ??F (36.4 ??C) SpO2: 100% Weight: (!) 164.7 kg (363 lb) Height: 6' 3 (1.905 m) Labs: Labs Reviewed Diagnoses/Impression: 1. Hypertension, benign Chronic TSH W/REFLEX URINALYSIS WI REFLEX TO CULTURE URIC ACID BLOOD COMPREHENSIVE METABOLIC PANEL VENIPUNC ARM DRAW amLODIPine (NORVASC) 10 MG tablet 2. Mixed hyperlipidemia Chronic LIPID PANEL TSH W/REFLEX CK (CPK) VENIPUNC ARM DRAW pravastatin (PRAVACHOL) 20 MG tablet 3. BMI 40.0-44.9, adult (CMS/HCC) Chronic CBC W/DIFF AUTOMATED LIPID PANEL TSH W/REFLEX PROSTATE SPECIFIC ANTIGEN,SCREENING URINALYSIS WI REFLEX TO CULTURE URIC ACID BLOOD COMPREHENSIVE METABOLIC PANEL VENIPUNC ARM DRAW 4. LEONOR (obstructive sleep apnea) Chronic CBC W/DIFF AUTOMATED VENIPUNC ARM DRAW 5. Mild intermittent asthma without complication CBC W/DIFF AUTOMATED VENIPUNC ARM DRAW Recommendations and Plan: 1. Hypertension, benign - TSH W/REFLEX; Future - URINALYSIS WI REFLEX TO CULTURE; Future - URIC ACID BLOOD; Future - COMPREHENSIVE METABOLIC PANEL; Future - VENIPUNC ARM DRAW - amLODIPine (NORVASC) 10 MG tablet; Take 1 tablet (10 mg total) by mouth nightly at bedtime. at bedtime Dispense: 90 tablet; Refill: 3 - COMPREHENSIVE METABOLIC PANEL - URIC ACID BLOOD - URINALYSIS WI REFLEX TO CULTURE - TSH W/REFLEX Pressure slightly elevated. Discussed blood pressure goals with patient today. Therapeutic lifestyle changes and dietary changes conducive to lowering blood pressure were discussed with patient today. We will plan to see patient back in the next couple of months for blood pressure recheck. If no improvement will consider addition of a second blood pressure medication. 2. Mixed hyperlipidemia - LIPID PANEL; Future - TSH W/REFLEX; Future - CK (CPK); Future - VENIPUNC ARM DRAW - pravastatin (PRAVACHOL) 20 MG tablet; Take 1 tablet (20 mg total) by mouth nightly at bedtime. atbedtime Dispense: 90 tablet; Refill: 3 - CK (CPK) - TSH W/REFLEX - LIPID PANEL Patient will continue current dose of pravastatin. More plan after lab results. 3. BMI 40.0-44.9, adult ([facility]) - CBC W/DIFF AUTOMATED; Future - LIPID PANEL; Future - TSH W/REFLEX; Future - PROSTATE SPECIFIC ANTIGEN,SCREENING; Future - URINALYSIS WI REFLEX TO CULTURE; Future - URIC ACID BLOOD; Future - COMPREHENSIVE METABOLIC PANEL; Future - VENIPUNC ARM DRAW - COMPREHENSIVE METABOLIC PANEL - URIC ACID BLOOD - URINALYSIS WI REFLEX TO CULTURE - PROSTATE SPECIFIC ANTIGEN,SCREENING - TSH W/REFLEX - LIPID PANEL - CBC W/DIFF AUTOMATED 4. LEONOR (obstructive sleep apnea) - CBC W/DIFF AUTOMATED; Future - VENIPUNC ARM DRAW - CBC W/DIFF AUTOMATED Stable. Continue CPAP 5. Mild intermittent asthma without complication - CBC W/DIFF AUTOMATED; Future - VENIPUNC ARM DRAW - CBC W/DIFF AUTOMATED Stable. Continue medications. Continue pulmonology follow-up Orders Placed This Encounter ??? VENIPUNC ARM DRAW ??? CBC W/DIFF AUTOMATED ??? LIPID PANEL ??? TSH W/REFLEX ??? PROSTATE SPECIFIC ANTIGEN,SCREENING ??? URINALYSIS WI REFLEX TO CULTURE ??? URIC ACID BLOOD ??? COMPREHENSIVE METABOLIC PANEL ??? CK (CPK) ??? amLODIPine (NORVASC) 10 MG tablet ??? pravastatin (PRAVACHOL) 20 MG tablet Cannot display discharge medications since this is not an admission. PCP: ZEB Nunn 10/28/2021 documented in this encounter Plan of Treatment Upcoming Encounters Date Type Department Care Team (Late st Contact Info) Description 03/28/2024 7:30 AM [facility] Hospital Encounter [facility] [place] [address] Antwan Stone, DIEGO [address], [place] [address] 03/28/2024 7:30 AM MORALE OFFICER Anesthesia Event [place] [address] Shanelle Avila, CONSUMER LOAN MANAGER [address] [place] [address] 03/28/2024 7:30 AM MORALE OFFICER - 03/28/2024 8:48 AM MORALE OFFICER [place] [address] Antwan Stone, DIEGO [address], [place] [address] REMOVAL OF HARDWARE LEFT FOOT 04/05/2024 8:30 AM MORALE OFFICER Office Visit Darren Fara-O'F allon [facility], [facility] [address] [place] [address] Dominick Mccloud MD [facility]. [facility] [address] [place] [address] Scheduled Procedures Name Priority Associated Diagnoses Date/Ti me REMOVAL PLATE SCREW OR PIN SCHED BY FAX 02/08/24 [facility] PHONE ASSESS 03/28/2024 7:30 AM MORALE OFFICER documented as of this encounter Procedures Procedure Name Priority Date/Time Associated Diagnosis Comments URINALYSIS WI REFLEX TO CULTURE Routine 10/25/2021 1:49 PM CDT Hypertension, benign BMI 40.0-44.9, adult (CMS/HCC [facility]) TSH W/REFLEX Routine 10/25/2021 1:49 PM CDT Hypertension, benign Mixed hyperlipidemia BMI 40.0-44.9, adult (CMS/HCC [facility]/HCC) PROSTATE SPECIFIC ANTIGEN,SCREENING Routine 10/25/2021 1:49 PM CDT BMI 40.0-44.9, adult (CMS/HCC [facility]/HCC) COMPREHENSIVE METABOLIC PANEL Routine 10/25/2021 1:49 PM CDT Hypertension, benign BMI 40.0-44.9, adult (CMS/HCC HHS/HCC) LIPID PANEL Routine 10/25/2021 1:49 PM CDT Mixed hyperlipidemia BMI 40.0-44.9, adult (CMS/HCC HHS/HCC) CBC W/DIFF AUTOMATED Routine 10/25/2021 1:49 PM CDT BMI 40.0-44.9, adult (CMS/HCC HHS/HCC) LEONOR (obstructive sleep apnea) Mild intermittent asthma without complication (HHS/HCC) CK (CPK) Routine 10/25/2021 1:49 PM CDT Mixed hyperlipidemia URIC ACID BLOOD Routine 10/25/2021 1:49 PM CDT Hypertension, benign BMI 40.0-44.9, adult (CMS/HCC HHS/HCC) VENIPUNC ARM DRAW Routine 10/25/2021 10: 56 AM CDT Hypertension, benign Mixed hyperlipidemia BMI 40.0-44.9, adult (CMS/HCC [facility]HS/HCC) LEONOR (obstructive sleep apnea) Mild intermittent asthma without complication (HHS/HCC) documented in this encounter Results * CK (CPK) (10/25/2021 1:49 PM CDT) CPK 152 39 - 308 U/L 10/25/2021 9:45 PM CDT [facility] 10/25/2021 1:49 PM CDT us Clara ISABELNP LABORATORY Final Resul t [facility] [address] [place] [address], * COMPREHENSIVE METABOLIC PANEL (10/25/2021 1:49 PM CDT) SODIUM S/P/B 138 136 - 145 MMOL/L 10/25/2021 9:32 PM CDT -[facility] POTASSIUM S/P/B 4.4 3.5 - 5.1 MMOL/L 10/25/2021 9:32 PM CDT -[facility] CHLORIDE S/P/B 102 98 - 107 MMOL/L 10/25/2021 9:32 PM CDT -[facility] CO2 24.8 21 - 32 MMOL/L 10/25/2021 9:32 PM CDT MG-[facility] GLUCOSE 90 70 - 99 MG/DL 10/25/2021 9:32 PM CDT -[facility] BUN 14 7 - 18 MG/DL 10/25/2021 9:32 PM CDT -[facility] CREATININE S/P/B 0.73 0.70 - 1.30 MG/DL 10/25/2021 9:32 PM CDT -[facility] CALCIUM S/P/B 9.5 8.4 - 10.5 MG/DL 10/25/2021 9:32 PM CDT -[facility] BILIRUBIN TOTAL S/P/B 0.4 0.2 - 1.0 MG/DL 10/25/2021 9:32 PM CDT -[facility] ALKALINE PHOSPHATASE S/P/B 94 45 - 115 U/L 10/25/2021 9:32 PM CDT MG-[facility] AST 27 15 - 37 U/L 10/25/2021 9:32 PM CDT MG-[facility] ALT 33 16 - 63 U/L 10/25/2021 9:32 PM CDT [facility] TOTAL PROTEIN S/P/B 7.9 6.4 - 8.2 G/DL 10/25/2021 9:32 PM CDT [facility] ALBUMIN S/P/B 4.1 3.4 - 5.0 G/DL 10/25/2021 9:32 PM CDT [facility] ANION GAP 11.2 5 - 15 MMOL/L 10/25/2021 9:32 PM CDT [facility] Comment:REFERENCE RANGE NOT ESTABLISHED OSMOLALITY (CALC) 286 MOSM/KG 022 9:32 PM CDT [facility] Comment:REFERENCE RANGE NOT ESTABLISHED GFR ESTIMATE >90 >90 ML/MIN/1. 73 M2 10/25/2021 9:32 PM CDT [facility] GFR NOTES GFR REFERENCE S: 10/25/2021 9:32 PM CDT [facility] Comment: THE ESTIMATED GFR IS CALCULATED USING THE 2020 CKD-EPI EQUATION. THE FOLLOWING CATEGORIES FOR GRADING RENAL FUNCTION ARE RECOMMENDED BY THE INTERNATIONAL SOCIETY OF NEPHROLOGY (KDIGO 2012 CLINICAL PRACTICE GUIDELINE). G1,NORMAL OR HIGH: >89 ml/min/1.73 m2 G2,MILDLY DECREASED: 60-89 ml/min/1.73 m2 G3A,MILDLY TO MODERATELY DECREASED: 45-59 ml/min/1.73 m2 G3B,MODERATELY TO SEVERELY DECREASED: 30-44 ml/min/1.73 m2 G4,SEVERELY DECREASED: 15-29 ml/min/1.73 m2 G5,KIDNEY FAILURE: <15 ml/min/1.73 m2 10/25/2021 1:49 PM CDT us Clara CARIRNGTON LABORATORY Final Resul t [facility] [address] [facility] [place] [address], * URIC ACID BLOOD (10/25/2021 1:49 PM CDT) URIC ACID 6.2 3.5 - 7.2 MG/DL 10/25/2021 9:32 PM CDT [facility] 10/25/2021 1:49 PM CDT Clara H Lizeth ISABEL LABORATORY Final Resul t [facility] [address] [place] [address], * (ABNORMAL) URINALYSIS WI REFLEX TO CULTURE (10/25/2021 1:49 PM CDT) COLOR (U) YELLOW 10/25/2021 7:28 PM CDT [facility] TRANSPARENCY CLEAR CLEAR 10/25/2021 7:28 PM CDT [facility] SPECIFIC GRAVITY (U) 1.015 1.003 - 1.040 10/25/2021 7:28 PM CDT [facility] U PH 6.0 5.0 - 9.0 10/25/2021 7:28 PM CDT [facility] PROTEIN (U) NEGATIVE NEGATIVE 10/25/2021 7:28 PM CDT [facility] URINE GLUCOSE NEGATIVE NEGATIVE 10/25/2021 7:28 PM CDT [facility] KETONES MG/DL (U) NEGATIVE NEGATIVE 10/25/2021 7:28 PM CDT [facility] BILIRUBIN (U) NEGATIVE NEGATIVE 10/25/2021 7:28 PM CDT [facility] BLOOD (U) NEGATIVE NEGATIVE 10/25/2021 7:28 PM CDT [facility] UROBILINOGEN 0.2 0.0 - 2.0 EU/DL 10/25/2021 7:28 PM CDT [facility] NITRITES NEGATIVE NEGATIVE 10/25/2021 7:28 PM CDT [facility] LEUKOCYTES (U) NEGATIVE NEGATIVE 10/25/2021 7:28 PM CDT [facility] REFLEX URINE CULTURE: CULTURE IS NOT INDICATED 10/25/2021 7:28 PM CDT [facility] RBC/HPF 0-3 0 - 3 /HPF 10/25/2021 7:28 PM CDT [facility] WBC/HPF 0-3 0 - 3 /HPF 10/25/2021 7:28 PM CDT [facility] EPI/HPF 0-3 /HPF 10/25/2021 7:28 PM CDT [facility] BACTERIA (U) TRACE(A) NONE SEEN 10/25/2021 7:28 PM CDT [facility] URINE SPECIMEN OBTAINED BY CLEAN CATCH PROCEDURE / Unknown 10/25/2021 1:49 PM CDT Clara CARRINGTON URINE ORDERABLES Final Resu lt Performing Organization Address [facility] Co de Phone Number [address] [address], * PROSTATE SPECIFIC ANTIGEN,SCREENING (10/25/2021 1:49 PM CDT) PSA 1.15 <4.00 NG/ML 10/25/2021 8:04 PM CDT [facility] Comment: ASSAY PERFORMED BY [employer]UNO[employer] METHODOLOGY USING [employer] DIMENSION REAGENT. PATIENT RESULTS DETERMINED BY ASSAYS FROM DIFFERENT MANUFACTURERS AND/OR BY DIFFERENT METHODS MAY NOT BE COMPARABLE. 10/25/2021 1:49 PM CDT us Clara CARRINGTON LABORATORY Final Resul t Performing Organization Address [facility] Co de Phone Number [facility] [address] [place] [address], * TSH W/REFLEX (10/25/2021 1:49 PM CDT) TSH 1.785 0.358 - 3.740 uIU/ML 10/25/2021 9:32 PM CDT [facility] 10/25/2021 1:49 PM CDT Clara CARRINGTON LABORATORY Final Resul t [facility] [address] [place] [address], * (ABNORMAL) LIPID PANEL (10/25/2021 1:49 PM CDT) CHOLESTEROL 219(H) <200 MG/DL 10/25/2021 9:32 PM CDT [facility] TRIGLYCERIDES 106 <150 MG/DL 10/25/2021 9:32 PM CDT [facility] HDL 54 >40 MG/DL 10/25/2021 9:32 PM CDT [facility] LDL-C 144(H) <100 MG/DL 10/25/2021 9:32 PM CDT [facility] VLDL CALCULATION 21 5 - 28 MG/DL 10/25/2021 9:32 PM CDT [facility] CHOL/HDL RATIO 4.1(H) 0.0 - 4.0 10/25/2021 9:32 PM CDT [facility] LDL/HDL 2.7(H) 0.41 - 2.13 10/25/2021 9:32 PM CDT [facility] NON HDL CHOLESTEROL 165(H) <140 MG/DL 10/25/2021 9:32 PM CDT [facility] 10/25/2021 1:49 PM CDT us Clara Jiley AP LABORATORY Final Resul t [facility] [address] [place] [address], * (ABNORMAL) CBC W/DIFF AUTOMATED (10/25/2021 1:49 PM CDT) WBC 9.2 4.0 - 10.8 x10'3/uL 10/25/2021 7:53 PM CDT -[facility] RBC 5.03 4.50 - 6.10 x10'6/uL 10/25/2021 7:53 PM CDT [facility] HGB 14.7 13.0 - 18.0 G/DL 10/25/2021 7:53 PM CDT [facility] HCT 44.8 37.0 - 52.0 % 10/25/2021 7:53 PM CDT [facility] MCV 89.1 78.0 - 100.0 FL 10/25/2021 7:53 PM CDT [facility] MCH 29.2 27.0 - 31.0 PG 10/25/2021 7:53 PM CDT [facility] MCHC 32.8(L) 33.0 - 36.0 G/DL 10/25/2021 7:53 PM CDT [facility] RDW 13.1 11.5 - 14.5 % 10/25/2021 7:53 PM CDT [facility] PLT 251 150 - 350 x10'3/uL 10/25/2021 7:53 PM CDT [facility] MPV 12.2(H) 7.4 - 10.4 FL 10/25/2021 7:53 PM CDT [facility] DIFFERENTIAL TYPE AUTOMATED DIFFERENTIAL 10/25/2021 7:53 PM CDT [facility] NEUTROPHILS % 72.3 % 10/25/2021 7:53 PM CDT [facility] LYMPHOCYTES % 13.5 % 10/25/2021 7:53 PM CDT [facility] MONOCYTES % 9.3 % 10/25/2021 7:53 PM CDT [facility] EOSINOPHILS % 4.0 % 10/25/2021 7:53 PM CDT [facility] BASOPHILS % 0.4 % 10/25/2021 7:53 PM CDT [facility] IMMATURE GRANS % 0.5 % 10/25/2021 7:53 PM CDT [facility] ABS. NEUTROPHILS 6.67 1.60 - 8.30 x10'3/uL 10/25/2021 7:53 PM CDT [facility] ABS. LYMPHOCYTES 1.25 0.80 - 4.70 x10'3/uL 10/25/2021 7:53 PM CDT [facility] ABS. MONOCYTES 0.86 0.00 - 1.50 x10'3/uL 10/25/2021 7:53 PM CDT [facility] ABS. EOSINOPHILS 0.37 0.00 - 0.40 x10'3/uL 10/25/2021 7:53 PM CDT [facility] ABS. BASOPHILS 0.04 0.00 - 0.20 x10'3/uL 10/25/2021 7:53 PM CDT [facility] ABS. IMMATURE GRANULOCYTES 0.05(H) 0.00 - 0.03 x10'3/uL 10/25/2021 7:53 PM CDT [facility] 10/25/2021 1:49 PM CDT Clara CARRINGTON LABORATORY Final Resul t [facility] [address] [place] [address] [phone] documented in this encounter Visit Diagnoses Diagnosis Hypertension, benign- Primary Essential hypertension, benign Mixed hyperlipidemia BMI 40.0-44.9, adult ([facility]) Body Mass Index 40.0-44.9, adult LEONOR (obstructive sleep apnea) Obstructive sleep apnea (adult) (pediatric) Mild intermittent asthma without complication ([facility]) Unspecified asthma Painful orthopaedic hardware ([facility])- Primary documented in this encounter Additional Health Concerns Assessment Noted Time PHQ-9 Depression Total Score: 0 10/26/19 22 11:07 AM CDT documented as of this encounter Care Teams [employer] Relationship Specialty Start Date End Date Clara Stanley APNP [address] [place] [id number] PCP - General NURSE PRACTITIONER 06/01/18 Dominick Mccloud MD [address] [address] [employer] CARDIOVASCULAR DISEASE 03/28/19 Alexis Lopez MD [address] [facility] [address] [address] PULMONARY DISEASE 10/21/19 documented as of this encounter
--- OUTSIDE RECORDS SUMMARY | 2024-03-02 03:20 | XMS_ITS | Encounter Summary ---
Author Organization [facility] Address [address] [place] [address]. [place], [place] [address] [place] [address] Care Team Providers Care Cooperative Education Coordinator Name Role Phone Clara Stanley Primary Care Provider [phone] Dominick Mccloud MD Unavailable [phone] Alexis Lopez MD Unavailable [phone] Encounter Details Date Type Department Care Team (Latest Contact Info) Description 02/22/2022 Scan HEALTH INFO SRVCS Scanned, Doc Med [...] Coronavirus/COVID-19? No / Unsure 02/12/2022 9:06 AM CENTERLESS GRINDER SET UP OPERATOR documented as of this encounter Plan of Treatment Upcoming Encounters Date Type Department Care Team (Late st Contact Info) Description 03/28/2024 7:30 AM CENTERLESS GRINDER SET UP OPERATOR Hospital Encounter [facility] [place] [address] Antwan Stone, DPM [address], [place] [address] 03/28/2024 7:30 AM CENTERLESS GRINDER SET UP OPERATOR Anesthesia Event [place] [address] Shanelle Avila CNP [address] [place] [address] 03/28/2024 7:30 AM CENTERLESS GRINDER SET UP OPERATOR - 03/28/2024 8:48 AM CENTERLESS GRINDER SET UP OPERATOR Surgery [place] [address] Antwan Stone, DIEGO [address], [place] [address] REMOVAL OF HARDWARE LEFT FOOT 04/05/2024 8:30 AM CENTERLESS GRINDER SET UP OPERATOR Office Visit [facility] THREE [facility] [address] [place] [address] Dominick Mccloud MD Three [facility]. [facility] [address] [place] [address] Scheduled Procedures Name Priority Associated Diagnoses Date/Ti me REMOVAL PLATE SCREW OR PIN SCHED BY FAX 02/08/24 JUANITOS PHONE ASSESS 03/28/2024 7:30 AM CENTERLESS GRINDER SET UP OPERATOR documented as of this encounter Visit Diagnoses Not on filedocumented in this encounter Additional Health Concerns Assessment Noted Time PHQ-9 Depression Total Score: 0 10/26/19 22 11:07 AM CDT documented as of this encounter Care Teams Cooperative Education Coordinator Relationship Specialty Start Date End Date Clara Stanley APNP [facility] [place] [address] PCP - General NURSE PRACTITIONER 06/01/18 Dominick Mccloud MD [facility] [address] [place] [address] [place] Board Certified Arts Therapist CARDIOVASCULAR DISEASE 03/28/19 Alexis Lopez MD [address] [facility] [address] [address] PULMONARY DISEASE 10/21/19 documented as of this encounter
--- OUTSIDE RECORDS SUMMARY | 2024-03-02 03:20 | XMS_ITS | Encounter Summary ---
Author Organization [facility] Address [address] [place] [address]. [place] [address] [place] [address] Care Team Providers Care Nuclear Waste Management Engineer Name Role Phone Clara Stanley Primary Care Provider [phone] Dominick Mccloud MD Unavailable [phone] Alexis Lopez MD Unavailable [phone] Encounter Details Date Type Department Care Team (Late st Contact Info) Description 02/11/2022 Orders Only [facility] [address] Deyanira Aguilar, [facility] Social History Tobacco Use Types Packs/Day Years [...] Coronavirus/COVID-19? No / Unsure 02/12/2022 9:06 AM DIE TRY OUT WORKER documented as of this encounter Plan of Treatment Upcoming Encounters Date Type Department Care Team (Late st Contact Info) Description 03/28/2024 7:30 AM DIE TRY OUT WORKER Hospital En[facility] [place] [address] Antwan Stone, DIEGO [address], [place] [address] 03/28/2024 7:30 AM DIE TRY OUT WORKER Anesthesia [place] [address] Shanelle Avila, RAEANN [address] [place] [address] 03/28/2024 7:30 AM DIE TRY OUT WORKER - 03/28/2024 8:48 AM DIE TRY OUT WORKER Surgery [place] [address] Antwan Stone, DIEGO [address], [place] [address] REMOVAL OF HARDWARE LEFT FOOT 04/05/2024 8:30 AM DIE TRY OUT WORKER Office Visit [facility] THREE [facility], [facility] [address] [place] [address] Dominick Mccloud MD Three [facility]. 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 documented as of this encounter Visit Diagnoses Not on filedocumented in this encounter Additional Health Concerns Assessment Noted Time PHQ-9 Depression Total Score: 0 10/26/19 22 11:07 AM CDT documented as of this encounter Care Teams Nuclear Waste Management Engineer Relationship Specialty Start Date End Date Clara Stanley APNP [address] [place] [address] PCP - General NURSE PRACTITIONER 06/01/18 Dominick Mccloud MD [place] [address] [place] [address] Walsh Bpo Specialist CARDIOVASCULAR DISEASE 03/28/19 Alexis Lopez MD [address] [address] PULMONARY DISEASE 10/21/19 documented as of this encounter
--- OUTSIDE RECORDS SUMMARY | 2024-03-02 03:20 | XMS_ITS | Encounter Summary ---
Author Organization [facility] Address [address] [place] [address]. [place], [place] [address] [place] [address] Care Team Providers Care General Sales Manager Name Role Phone Clara Stanley Primary Care Provider [phone] Dominick Mccloud MD Unavailable [phone] Alexis Lopez MD Unavailable [phone] Encounter Details Date Type Department Care Team (Latest Contact Info) Description 10/25/2021 Travel Social History Tobacco Use Types Packs/Day [...] AM CDT documented as of this encounter Plan of Treatment Upcoming Encounters Date Type Department Care Team (Late st Contact Info) Description 03/28/2024 7:30 AM ASSISTANT WRESTLING COACH Hospital Encounter [facility] [place] [place] [address] Antwan Stone, DIEGO [address], [place] [address] 03/28/2024 7:30 AM ASSISTANT WRESTLING COACH Anesthesia [place] [address] Shanelle Avila, REAL ESTATE VALUER [address] [place] [address] 03/28/2024 7:30 AM ASSISTANT WRESTLING COACH - 03/28/2024 8:48 AM ASSISTANT WRESTLING COACH [place] [address] Antwan Stone, DIEGO [address], [place] [address] REMOVAL OF HARDWARE LEFT FOOT 04/05/2024 8:30 AM ASSISTANT WRESTLING COACH Office Visit [facility] THREE [facility], [facility] [address] [place] [address] Dominick Mccloud MD Three [facility]. [facility] [address] [place] [address] Scheduled Procedures Name Priority Associated Diagnoses Date/Ti me REMOVAL PLATE SCREW OR PIN SCHED BY FAX 02/08/24 KAYLIE PHONE ASSESS 03/28/2024 7:30 AM ASSISTANT WRESTLING COACH documented as of this encounter Visit Diagnoses Not on filedocumented in this encounter Additional Health Concerns Assessment Noted Time PHQ-9 Depression Total Score: 0 10/26/19 22 11:07 AM CDT documented as of this encounter Care Teams General Sales Manager Relationship Specialty Start Date End Date Clara Stanley APNP [address] [place] [address] PCP - General NURSE PRACTITIONER 06/01/18 Dominick Mccloud MD [facility] [address] [place] [address] [employer] Representative CARDIOVASCULAR DISEASE 03/28/19 Alexis Lopez MD [address] [facility] [address] [address] PULMONARY DISEASE 10/21/19 documented as of this encounter
--- OUTSIDE RECORDS SUMMARY | 2024-03-02 03:20 | XMS_ITS | Encounter Summary ---
Author Organization [facility] Address [address] [place] [address]. [place], [place] [address] [place] [address] Care Team Providers Care Seedling Sorter Name Role Phone Clara Stanley Primary Care Provider [phone] Dominick Mccloud MD Unavailable [phone] Alexis Lopez MD Unavailable [phone] Encounter Details Date Type Department Care Team (Latest Contact Info) Description 02/12/2022 Travel Social History Tobacco Use Types Packs/Day [...] Coronavirus/COVID-19? No / Unsure 02/12/2022 9:06 AM AIR SUPPORT OPERATIONS OPERATOR documented as of this encounter Plan of Treatment Upcoming Encounters Date Type Department Care Team (Late st Contact Info) Description 03/28/2024 7:30 AM AIR SUPPORT OPERATIONS OPERATOR Hospital Encounter [facility] [place] [place] [address] Antwan Stone, DIEGO [address], [place] [address] 03/28/2024 7:30 AM AIR SUPPORT OPERATIONS OPERATOR Anesthesia [place] [address] Shanelle Avila, CYLINDER HONER [address] [place] [address] 03/28/2024 7:30 AM AIR SUPPORT OPERATIONS OPERATOR - 03/28/2024 8:48 AM AIR SUPPORT OPERATIONS OPERATOR [place] [address] Antwan Stone, DIEGO [address], [place] [address] REMOVAL OF HARDWARE LEFT FOOT 04/05/2024 8:30 AM AIR SUPPORT OPERATIONS OPERATOR Office Visit [facility] THREE [facility], [facility] [address] [place] [address] Dominick Mccloud MD Three [facility]. [facility] [address] [place] [address] Scheduled Procedures Name Priority Associated Diagnoses Date/Ti me REMOVAL PLATE SCREW OR PIN SCHED BY FAX 02/08/24 JUANITOS PHONE ASSESS 03/28/2024 7:30 AM AIR SUPPORT OPERATIONS OPERATOR documented as of this encounter Visit Diagnoses Not on filedocumented in this encounter Additional Health Concerns Assessment Noted Time PHQ-9 Depression Total Score: 0 10/26/19 22 11:07 AM CDT documented as of this encounter Care Teams Seedling Sorter Relationship Specialty Start Date End Date Clara Stanley APNP [address] [place] [address] PCP - General NURSE PRACTITIONER 06/01/18 Dominick Mccloud MD [facility] [address] [place] [address] [place] [employer] Transmission Worker CARDIOVASCULAR DISEASE 03/28/19 Alexis Lopez MD 46[address] [facility] [address] [address] PULMONARY DISEASE 10/21/19 documented as of this encounter
--- OUTSIDE RECORDS SUMMARY | 2024-03-02 03:20 | XMS_ITS | Encounter Summary ---
Author Organization [facility] Address [address] [place] [address]. [place], [place] [address] [place] [address] Care Team Providers Care Silver Service Waiter Name Role Phone Clara Stanley Primary Care Provider [phone] Dominick Mccloud MD Unavailable [phone] Alexis Lopze MD Unavailable [phone] Reason for Visit * Auth/Cert Specialty Diagnoses / Procedures Referred By Erik [email or web address] Referred To Contact Diagnoses Personal hx of polyps Procedures COLONOSCOPY Referral ID Status Reason Start Date Expiration Date Visits Re quested Visits Authorized [id number] 1 1 Encounter Details Date Type Department Care Team (Latest Contact Info) Description 03/21/2022 6:06 AM DUST COLLECTOR OPERATOR - 03/21/2022 8:02 AM [facility] Hospital Encounter [facility] [place] [address] Lisa Medina, DO [address] [facility] [address] [place] [address] Discharge Disposition: Home or Self Care (Routine [...] Coronavirus/COVID-19? No / Unsure 03/21/2022 6:06 AM DUST COLLECTOR OPERATOR documented as of this encounter Last Filed Vital Signs Vital Sign Reading Time Taken Comments Blood Pressure 129/83 03/21/2022 7:25 AM DUST COLLECTOR OPERATOR Pulse 81 03/21/2022 7:25 AM DUST COLLECTOR OPERATOR Temperature 36.4 ??C (97.6 ??F) 03/21/2022 7:15 AM CS T Respiratory Rate 11 03/21/2022 7:25 AM DUST COLLECTOR OPERATOR Oxygen Saturation 93% 03/21/2022 7:25 AM DUST COLLECTOR OPERATOR Inhaled Oxygen Concentration - - Weight 163.3 kg (360 lb) 03/11/2022 10:20 AM DUST COLLECTOR OPERATOR Height 190.5 cm (6' 3 ) 03/11/2022 10:20 AM DUST COLLECTOR OPERATOR Body Mass Index 45 03/11/2022 10:20 AM DUST COLLECTOR OPERATOR documented in this encounter Discharge Instructions * Discharge Instructions* Amelie Johnson RN - 03/21/2022 7:26 AM DUST COLLECTOR OPERATOR Recommendations: Fiber. Follow-up with primary as needed. Recheck colonoscopy 5 years due to history of multiple colon polyps. COLLECTOR OPERATOR * Attachments The following attachments cannot be sent through Care Everywhere. * Colonoscopy Discharge Instructions (Macanese) * General Anesthesia Discharge Instructions (Macanese) documented in this encounter Medications at Time [...] mouth daily. vitamin D3, cholecalciferol, 1.25 MG (66396 UT) capsule Take 1 capsule (50,000 Units [...] were discussed with the patient and/or family/personal renewals representative. Questions were answered and the patient/family/personal renewals representative verbalized understanding and desires to proceed. Previous Adverse Experience with Sedation, Analgesia, or Anesthesia? No ASA Classification: 3 Mallampati: 2 NPO: after midnight Planned Sedation/Analgesic Agent(s): Moderate Sedation Versed/Fentanyl Planned Procedure(s): Colonoscopy. Signed: LISA MEDINA MD COLLECTOR OPERATOR documented in this encounter H&P Notes * [...] File Prior to Encounter Medication Sig ??? Gayfdbmadyh-Ebnfltysp-Hcnufx (TRELEGY ELLIPTA) 100-62.5-25 MCG/ACT AEROSOL POWDER, BREATH [...] daily. ??? vitamin D3, cholecalciferol, 1.25 MG (49745 UT) capsule Take 50,000 Units by mouth [...] hesitate to contact me. Lisa Medina DO COLLECTOR OPERATOR documented in this encounter OR Notes * [...] explained in detail to the patient/power of real estate associate attorney. These were understood, assumed and written consent was obtained. The risk and complications include, but are not limited to, hemorrhage, perforation, infection, blood transfusion surgery, and missed lesions. Anesthesia risks were explained by the department of anesthesiology. These include, but are not limited to, allergic reactions, cardiopulmonary arrest, heart attack, stoke, and infection. All question were answered and understood. Lisa Medina DO COLLECTOR OPERATOR documented in this encounter Plan of Treatment Upcoming Encounters Date Type Department Care Team (Late st Contact Info) Description 03/28/2024 7:30 AM DUST COLLECTOR OPERATOR Hospital Encounter [facility] [place] [address] Antwan Stone DPM [address], [place] [address] 03/28/2024 7:30 AM DUST COLLECTOR OPERATOR Anesthesia Event [place] [address] Shanelle Avila, GEOMORPHOLOGY TEACHER [address] [place] [address] 03/28/2024 7:30 AM DUST COLLECTOR OPERATOR - 03/28/2024 8:48 AM DUST COLLECTOR OPERATOR Surgery [facility] [address] Antwan Stone, DIEGO [address], [place] [address] REMOVAL OF HARDWARE LEFT FOOT 04/05/2024 8:30 AM DUST COLLECTOR OPERATOR Office Visit [facility]F [facility] THREE [facility], [facility] [address] [place] [address] Dominick Mccloud MD Three [facility]. [facility] [address] [place] [address] Scheduled Procedures Name Priority Associated Diagnoses Date/Ti me REMOVAL PLATE SCREW OR PIN SCHED BY FAX 02/08/24 Mary PHONE ASSESS 03/28/2024 7:30 AM DUST COLLECTOR OPERATOR documented as of this encounter Procedures Procedure Name Priority Date/Time Associated Diagnosis Comments COLONOSCOPY Routine 03/21/2022 7:46 AM DUST COLLECTOR OPERATOR PROCEDURE GENERIC 03/21/2022 7:0 2 AM DUST COLLECTOR OPERATOR COLONOSCOPY 03/21/2022 6:47 AM DUST COLLECTOR OPERATOR Personal hx of polyps COLONOSCOPY Routine 03/21/2022 6:29 AM DUST COLLECTOR OPERATOR documented in this encounter Results * PROCEDURE GENERIC (03/21/2022 7:02 AM DUST COLLECTOR OPERATOR) Narrative 03/21/2022 7:02 AM DUST COLLECTOR OPERATOR Ordered by an unspecified provider. us Documents Scanned [facility] Final Result documented in this encounter Visit Diagnoses Not on filedocumented in this encounter Active and Recently Administered Medications Times are shown in DUST COLLECTOR OPERATOR. PRN Medication Order 03/19/2022 03/20/2022 03/21/2022 [id number] [...] Intra-Op 0654 (Given - Provid er: Shelby Golver RN - Comment: initial dose)0656 (Given - Provider: Shelby Glover RN - Comment: pt awake)0658 (Given - Provider: Shelby Glover RN - Comment: pt awake) documented in this encounter Additional Health Concerns Assessment Noted Time PHQ-9 Depression Total Score: 0 10/26/19 22 11:07 AM CDT documented as of this encounter Care Teams Silver Service Waiter Relationship Specialty Start Date End Date Clara Stanley APNP [address] [place] [address] PCP - General NURSE PRACTITIONER 06/01/18 Dominick Mccloud MD [address] [address] [place] [facility]ology Tech CARDIOVASCULAR DISEASE 03/28/19 Alexis Lopez MD [address] [place] [address] PULMONARY DISEASE 10/21/19 documented as of this encounter
--- OUTSIDE RECORDS SUMMARY | 2024-03-02 03:20 | XMS_ITS | Encounter Summary ---
Author Organization [facility] Address [address] [place] [address]. [place], [place] [id number] [place] [address] Care Team Providers Care Student Services Advisor Name Role Phone Lizeth Clara CARRINGTON Primary Care Provider [phone] Dominick Mccloud MD Unavailable [phone] Alexis Lopez MD Unavailable [phone] Reason for Referral * Imaging (Routine) - Closed Specialty Diagnoses / Procedures Referred By Contac t Referred To Contact RADIOLOGY Diagnoses PEARCE (dyspnea on exertion) Procedures NM EXER NUC STRESS TEST 2DAY NM EXER NUC STRESS TEST 1DAY Dominick Mccloud MD [facility]. [facility] [address] [place] [address] Phone: tel: fax: Referral ID Status Reason Start Date Expiration Date Visits Re quested Visits Authorized [id number] Closed 02/12/2022 05/03/2022 2 2 FILLER Reason for Visit * Reason Comments Hypertension Yearly followup Encounter Details Date Type Department Care Team (Late st Contact Info) Description 02/12/2022 9:15 AM TANK FILLER Office Visit [facility], [facility] [address] [place] [address] Dominick Mccloud MD [facility]. [facility] [address] [place] [address] Hypertension (Yearly followup) Social History Tobacco Use Types Packs/Day Years Used Date Smoking Tobacco: Never Smokeless Tobacco: Never Tobacco Cessation:Counseling Given: Not Answered Alcohol Use Standard Drinks/Week Comments Yes 0 [...] Coronavirus/COVID-19? No / Unsure 02/12/2022 9:06 AM TANK FILLER documented as of this encounter Last Filed Vital Signs Vital Sign Reading Time Taken Comments Blood Pressure 132/84 02/12/2022 9:15 AM TANK FILLER Pulse 81 02/12/2022 9:15 AM TANK FILLER Temperature - - Respiratory Rate - - Oxygen Saturation 98% 02/12/2022 9:15 AM TANK FILLER Inhaled Oxygen Concentration - - Weight 165.6 kg (365 lb) 02/12/2022 9:15 AM TANK FILLER Height 190.5 cm (6' 3 ) 02/12/2022 9:15 AM TANK FILLER Body Mass Index 45.62 02/12/2022 9:15 AM TANK FILLER documented in this encounter Progress Notes * Dominick Mccloud MD - 02/12/2022 9:15 AM CST Reason for Visit: Hypertension (Yearly followup) History of Present Illness: Mp Bullock is a 56-year-old gentleman being seen today for followup of hypertension and dyslipidemia. He reports that since his last visit, he has noticed progressively increasing dyspnea on exertion without chest pain. He denies any orthopnea, PND, lower extremity edema. Of note, he did undergo mediastinal radiation therapy at the end of 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 #[id number] /TAP ASSESSMENT AND PLAN: PROBLEM LIST: 1. Intracranial hypertension. 2. Hypertension. 3. Dyslipidemia. 4. GERD. 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 12/2020 recurrent paratracheal lymph node, s/p mediastinal XRT 02/2021 6. Varicose veins s/p Right stab phlebectomy 7. Possible LEONOR PLAN Dyspnea on exertion: There are certainly pulmonary reasons for his shortness of breath, but I do want to rule out cardiac etiologies. We will obtain a transthoracic echo and a treadmill nuclear stress test. I will also provide sublingual Nitroglycerin to be used p.r.n. to see if it provides any relief. Hypertension: Blood pressure is well controlled on his current regimen. Dyslipidemia: He remains on Pravastatin. A 10-year cardiovascular risk is estimated at 6.5% based on LDL 144 as of 10/2021. Intensification of his statin would reduce this slightly to 4.9%. Given the small improvement and relatively low risk, he favors remaining on his current regimen. We did briefly discuss thevalue of weight loss and regular exercise as important parts of both cholesterol control and overall health. I will plan to see him back in 1 to 2 months unless issues arise in the interim. Thank you very much for allowing me to participate in the care of your patient. Please feel free tocontact me with any further questions or concerns. #[id number] /TAP DATA REVIEWED: 03/17/19 EKG personally overread: Normal sinus rhythm, left axis deviation, partial right bundle branch block. 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 He has no history of tobacco use, reports rare alcohol use, denies illicit substance use. FAMILY HISTORY: Significant for father who had coronary disease in his 60s. Medications: Current Outpatient Medications: ??? nitroglycerin (NITROSTAT) 0.4 MG SL tablet, Place 1 tablet (0.4 mg total) under the tongue every 5 (five) minutes as needed for Chest Pain (If 3 doses taken, call 911.). Maximum of 3 doses., Disp: 25 tablet, Rfl: 1 ??? amLODIPine (NORVASC) 10 MG tablet, Take [...] Rfl: ??? vitamin D3, cholecalciferol, 1.25 MG (19213 UT) capsule, Take 50,000 Units by mouth [...] Relation Name Status ??? Mother Alive, age 82y ??? Father Alive, age 85y Review of Systems Constitutional: Negative for recent [...] new or significant memory loss. Filed Vitals: 02/12/22 0915 BP: 132/84 Pulse: 81 SpO2: 98% Weight: (!) 165.6 kg (365 lb) Height: [...] Comments: Diagnoses/Impression: 1. PEARCE (dyspnea on exertion) USE ECHOCARDIOGRAM NM EXER NUC STRESS TEST 1DAY 2. Hypertension, benign 3. Mixed hyperlipidemia Referring Provider: No ref. provider found PCP: ZEB Nunn FILLER FILLER documented in this encounter Plan of Treatment Upcoming Encounters Date Type Department Care Team (Late st Contact Info) Description 03/28/2024 7:30 AM TANK FILLER Hospital Encounter [facility] [place] [address] Antwan Stone, DIEGO [address], [place], [place] [address] 03/28/2024 7:30 AM TANK FILLER Anesthesia [place] [address] Shanelle Avila, SUPERVISOR DRY CLEANING [address] [place] [address] 03/28/2024 7:30 AM TANK FILLER - 03/28/2024 8:48 AM TANK FILLER Surgery [place] [address] Antwan Stone DPM [address], [place], [place] [id number] REMOVAL OF HARDWARE LEFT FOOT 04/05/2024 8:30 AM TANK FILLER Office Visit [facility], [address] [address] Dominick Mccloud MD [facility] [address] [facility] [address] [place] [address] Scheduled Procedures Name Priority Associated Diagnoses Date/Ti me REMOVAL PLATE SCREW OR PIN SCHED BY FAX 02/08/24 [facility] PHONE ASSESS 03/28/2024 7:30 AM TANK FILLER documented as of this encounter Results * NM EXER NUC STRESS TEST 2DAY (03/24/2022 1:46 PM TANK FILLER) Anatomical Region Laterality Modality Cardiac Nuclear Medicine 03/24/2022 11:4 6 AM TANK FILLER Narrative 03/24/2022 1:32 PM TANK FILLER ? Myocardial Perfusion Imaging ? Pat.Name: ??MP BULLOCK.ID: ?[id number] ? St.Date: ?? 03/24/2022 ?Refer.MD: ??H. Lizeth ? Exam Time: 11:46:00 AM ? Study Type:GUME NC HT MUSCLE IMAGE SPECT MULTI Height: ?75 in ? Weight: ?360 lb ? BSA: ? 2.82 m2 ?Age: ??1965,56Y ? Sex: ? M ? Sonogrphr: Per Jones, LUNCH TRUCK OPERATOR ? Pat. Stat.:Outpatient ? Reason for Study:Shortness [...] % ?Max BP: ?192/90 Max RPP: ?? [id number] ? O2 sat: ?100 % Symptoms and Complications: Terminated: Shortness of breath Symptoms: ??Shortness of breath Complications: None Stress ECG Interp: No ischemic changes <Signed> 03/24/2022 12:26 PM Dominick Mccloud M.D. Stress interpretation <Electronic Signature> 03/24/2022 01:32 PM Kamala Gomez M.D. Nuclear interpretation Procedure Note Kamala Gomez MD - 03/24/2022 Myocardial Perfusion Imaging Pat.Name: MP BULLOCK.ID: [id number] .Date: 03/24/2022 Refer.MD: Les Stanley Exam Time: 11:46:00 AM Study Type:GUME NC HT MUSCLE IMAGE SPECT MULTI Height: 75 in Weight: 360 lb BSA: 2.82 m2 Age: 2 1965,56Y Sex: M Sonogrphr: Per Jones [facility] Pat. Stat.:Outpatient Reason for Study:Shortness of [...] 87 % Max BP: 192/90 Max RPP: [id number] O2 sat: 100 % Symptoms and Complications: [...] Hypertension, benign Essential hypertension, benign Mixed hyperlipidemia PEARCE (dyspnea on exertion)- Primary Other dyspnea and respiratory abnormality BMI 40.0-44.9, adult ([facility]) Body Mass Index 40.0-44.9, adult LEONOR (obstructive sleep apnea) Obstructive sleep apnea (adult) (pediatric) Snoring Other dyspnea and respiratory abnormality Lung mass Swelling, mass, or lump in chest Morbid obesity ([facility]) Morbid obesity Insomnia Insomnia, unspecified Painful orthopaedic hardware ([facility])- Primary documented in this encounter Additional Health Concerns Assessment Noted Time PHQ-9 Depression Total Score: 0 10/26/19 22 11:07 AM CDT documented as of this encounter Care Teams Student Services Advisor Relationship Specialty Start Date End Date Clara Stanley APNP [address] [place] [address] PCP - General NURSE PRACTITIONER 06/01/18 Dominick Mccloud MD [address] [address] Fely Button Tufting Machine Operator CARDIOVASCULAR DISEASE 03/28/19 Alexis Lopez MD [address] [facility] [address] [place] [address] [place] [address] PULMONARY DISEASE 10/21/19 documented as of this encounter
--- OUTSIDE RECORDS SUMMARY | 2024-03-02 03:21 | XMS_ITS | Encounter Summary ---
Author Organization [facility] Address [address] [place] [address]. [place], [place] [address] [place] [address] Care Team Providers Care Order Selector Name Role Phone Clara Stanley Primary Care Provider [phone] Dominick Mccloud MD Unavailable [phone] Alexis Lopez MD Unavailable [phone] Encounter Details Date Type Department Care Team (Latest Contact Info) Description 03/28/2020 Scan HEALTH INFO SRVCS Scanned, Documents Social [...] have Coronavirus / COVID-19? No / Unsure 03/28/2020 11:13 AM CREDIT COLLECTIONS ANALYST documented as of this encounter Plan of Treatment Upcoming Encounters Date Type Department Care Team ( st Contact Info) Description 03/28/2024 7:30 AM CREDIT COLLECTIONS ANALYST Hospital Encounter [facility] [place] [address] Antwan Stone, DIEGO [address], [place] [address] 03/28/2024 7:30 AM CREDIT COLLECTIONS ANALYST Anesthesia [place] [address] Shanelle Avila, ACCOUNTS RECEIVABLE COORDINATOR [address] [place] [address] 03/28/2024 7:30 AM CREDIT COLLECTIONS ANALYST - 03/28/2024 8:48 AM CREDIT COLLECTIONS ANALYST Surgery [place] [address] Antwan Stone, DIEGO [address], [place] [address] REMOVAL OF HARDWARE LEFT FOOT 04/05/2024 8:30 AM CREDIT COLLECTIONS ANALYST Office Visit [facility], [facility] [address] [place] [address] Dominick Mccloud MD Three [facility]. [facility] [address] [place] [address] Scheduled Procedures Name Priority Associated Diagnoses Date/Ti me REMOVAL PLATE SCREW OR PIN SCHED BY FAX 02/08/24 [facility] PHONE ASSESS 03/28/2024 7:30 AM CREDIT COLLECTIONS ANALYST documented as of this encounter Visit Diagnoses Not on filedocumented in this encounter Additional Health Concerns Assessment Noted Time PHQ-9 Depression Total Score: 4 03/28/19 21 1:42 PM CREDIT COLLECTIONS ANALYST documented as of this encounter Care Teams Order Selector Relationship Specialty Start Date End Date Clara Stanley APNP [address] [place] [address] PCP - General NURSE PRACTITIONER 06/01/18 Dominick Mccloud MD [facility] [address] [place] [address] [place] Horseback Excavator CARDIOVASCULAR DISEASE 03/28/19 Alexis Lopez MD [address] [facility] [address] [place] [address] PULMONARY DISEASE 10/21/19 documented as of this encounter
--- OUTSIDE RECORDS SUMMARY | 2024-03-02 03:21 | XMS_ITS | Encounter Summary ---
Author Organization [facility] Address [address] [place] [address]. [place], [place] [id number] [place] [address] Care Team Providers Care Alignment Specialist Name Role Phone Clara Stanley Primary Care Provider [phone] Dominick Mccloud MD Unavailable [phone] Alexis Lopez MD Unavailable [phone] Encounter Details Date Type Department Care Team (Latest Contact Info) Description 12/01/2019 Travel Social History Tobacco Use Types Packs/Day [...] of Binge Drinking Not on file 05/15 Sex and Gender Information Value Date Recorded Sex Assigned at Not on file Legal Sex Male 9:00 PM CDT Gender Identity Not on file Sexual Orientation Not on file COVID-19 Exposure Response Date Recorded In the last month, have you been in contact with someone who was confirmed or suspected to have Coronavirus / COVID-19? No / Unsure 12/01/2019 12:26 PM CDT documented as of this encounter Plan of Treatment Upcoming Encounters Date Type Department Care Team (Late st Contact Info) Description 03/28/2024 7:30 AM [facility] Hospital Encounter [facility] [place] [address] Antwan Stone DPM [address], [place] [address] 03/28/2024 7:30 AM BUSINESS INTELLIGENCE DIRECTOR Anesthesia Event [facility] [place] [address] Shan[address] Avila, ROAD EQUIPMENT OPERATOR [address] [place] [address] 03/28/2024 7:30 AM BUSINESS INTELLIGENCE DIRECTOR - 03/28/2024 8:48 AM BUSINESS INTELLIGENCE DIRECTOR Surgery [facility] [place] [address] Antwan Stone DPM [address], [place] [address] REMOVAL OF HARDWARE LEFT FOOT 04/05/2024 8:30 AM BUSINESS INTELLIGENCE DIRECTOR [facility] [address] [place], [place] [address] Dominick Mccloud MD Three [facility]. [facility] [address] [place], [place] [address] Scheduled Procedures Name Priority Associated Diagnoses Date/Ti me REMOVAL PLATE SCREW OR PIN SCHED BY FAX 02/08/24 [facility] PHONE ASSESS 03/28/2024 7:30 AM BUSINESS INTELLIGENCE DIRECTOR documented as of this encounter Visit Diagnoses Not on filedocumented in this encounter Care Teams Alignment Specialist Relationship Specialty Start Date End Date Clara Stanley APNP [address] [place] [address] PCP - General NURSE PRACTITIONER 06/01/18 Dominick Mccloud MD [facility]. [facility] [address] [place] [address] Fely Horticultural Agent CARDIOVASCULAR DISEASE 03/28/19 Alexis Lopez MD [address] [facility] [address] [place] [address] PULMONARY DISEASE 10/21/19 documented as of this encounter
--- OUTSIDE RECORDS SUMMARY | 2024-03-02 03:21 | XMS_ITS | Encounter Summary ---
Author Organization [facility] Address [address] [place] [address]. [place], [place] [address] [place] [address] Care Team Providers Care Client Care Specialist Name Role Phone Clara Stanley Primary Care Provider [phone] Dominick Mccloud MD Unavailable [phone] Alexis Lopez MD Unavailable [phone] Reason for Visit * Reason Comments Hypertension Hyperlipidemia Encounter Details Date Type Department Care Team (Latest Contact Info) Description 03/28/2020 12:[address]/MEDICAL INTERPRETER Office Visit [facility] Family & Internal Medicine [id number] [place] [address] Clara Stanley APNP [address] [place] [address] Hypertension; Hyperlipidemia Social History Tobacco Use Types Packs/Day [...] COVID-19? No / Unsure 03/28/2020 11:[address]/MEDICAL INTERPRETER documented as of this encounter Last Filed Vital Signs Vital Sign Reading Time Taken Comments Blood Pressure 122/70 03/28/2020 1:[address]/MEDICAL INTERPRETER recheck after visit. Pulse 79 03/28/2020 12:[address]/MEDICAL INTERPRETER Temperature 36.9 ??C (98.4 ??F) 03/28/2020 1 2:[address]/MEDICAL INTERPRETER Respiratory Rate 16 03/28/2020 12:[address]/MEDICAL INTERPRETER Oxygen Saturation 99% 03/28/2020 12: [address]/MEDICAL INTERPRETER Inhaled Oxygen Concentration - - Weight 153.3 kg (338 lb) 03/28/2020 12: [address]/MEDICAL INTERPRETER Height 190.5 cm (6' 3 ) 03/28/2020 12:[address]/MEDICAL INTERPRETER Body Mass Index 42.25 03/28/2020 12:[address]/MEDICAL INTERPRETER documented in this encounter Progress Notes * ZEB Nunn - 03/28/2020 12:40 PM CST Images from the original note were not included. [facility] FAMILY AND INTERNAL MEDICINE OFFICE VISIT Reason for Visit: Hypertension and Hyperlipidemia History of Present Illness: 54 yo male here today for follow up of his chronic health conditions. HTN -blood pressure is elevated at today's visit at 155/100. Patient is asymptomatic denying any chest pain, shortness breath, headache, dizziness, heart palpitations or lower extremity edema. He didtake his amlodipine this morning as ordered. His previous 2 blood pressure checks in the past year have been within normal limits. He does admit to indulging in an increase amount of alcohol and unhealthy food over the holidays. He does have a diagnosis of obstructive sleep apnea and notes he does attempt to wear his CPAP but is not always successful. HLD -patient is currently on pravastatin. Tolerates this medication well with no bothersome side effects. Denies any myalgias. He is due to have his lipids checked and these will be ordered today. Mild intermittent asthma -patient is currently on daily Symbicort which he tolerates well. Feels his at symptoms are well controlled. He does not currently have an albuterol inhaler. We will order this today. Denies any cough, shortness of breath, nighttime awakenings or wheezing LEONOR -patient has a CPAP at home and states he has difficulty tolerating. This was prescribed per his services executive. He has followed back up with his supplier and changed mask but is still unable to tolerate. 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 Doing well in this aspect. Continues to see pulmonology, Dr. Lopez. Insomnia - Has tried meds in the past ,but stopped. Didn't think it was good for him. Would be interested in trying something else. He has a previous diagnosis of IIH and is currently seeing a neuroophthalmologist at [facility]. He was instructed to stop taking the Diamox and monitor for headaches--he notes so far, no headaches. Has been off of the Diamox for about a month. He continues to have some intermittent bilateral side discomfort--he has addressed this with his surgeon and has a CT scan scheduled for later today followed by an appt with his surgeon. He sees Dr. Mccloud/cardiology. ROS: Review of Systems Constitutional: Negative for chills, fever and malaise/fatigue. HENT: Negative for congestion. Eyes: Negative for blurred vision and double vision. Respiratory: Negative for cough and shortness of breath. Cardiovascular: Negative for chest pain and palpitations. Gastrointestinal: Positive for abdominal pain. Negative for diarrhea, nausea and vomiting. Genitourinary: Negative for dysuria and urgency. Musculoskeletal: Negative for myalgias. Neurological: Negative for dizziness and headaches. Psychiatric/Behavioral: Negative for depression and suicidal ideas. The patient has insomnia. The patient is not nervous/anxious. Medications: Current Outpatient Medications: ??? albuterol sulfate HFA (PROAIR HFA) 108 (90 Base) MCG/ACT inhaler, Inhale 2 puffs into the lungsevery 6 (six) hours as needed for Wheezing., Disp: 1 Inhaler, Rfl: 0 ??? amLODIPine 10 MG tablet, Take 1 tablet (10 mg total) by mouth nightly at bedtime., Disp: 90 tablet, Rfl: 3 ??? Budesonide-Formoterol Fumarate (SYMBICORT IN), Inhale 2 Inhalers into the lungs 2 (two) times aday. , Disp: , Rfl: ??? cetirizine (ZYRTEC ALLERGY) 10 MG tablet, Take 10 mg by mouth nightly at bedtime. , Disp: , Rfl: ??? fluticasone propionate 50 MCG/ACT nasal spray, 1 spray by Nasal route daily., Disp: , Rfl: ??? gabapentin 300 MG capsule, Take 1 capsule (300 mg total) by mouth 3 (three) times daily. (Patient taking differently: Take 300 mg by mouth 2 (two) times daily. ), Disp: 270 capsule, Rfl: 2 ??? LORazepam 0.5 MG tablet, Take 1 tablet (0.5 mg total) by mouth every 8 (eight) hours as needed for Anxiety., Disp: 60 tablet, Rfl: 0 ??? Multiple Vitamins-Minerals (MULTIVITAMIN ADULT OR), , Disp: , Rfl: ??? PRAVASTATIN 20 MG tablet, TAKE 1 TABLET BY MOUTH EVERY NIGHT AT BEDTIME, Disp: 90 tablet, Rfl: 3 ??? traZODone 50 MG tablet, Take 1 tablet (50 mg total) by mouth nightly at bedtime for 30 days., Disp: 30 tablet, Rfl: 1 ??? vitamin C 1000 MG tablet, Take 1,000 mg by mouth daily., Disp: , Rfl: ??? vitamin D3, cholecalciferol, 1.25 MG (32658 UT) capsule, Take 50,000 Units by mouth weekly., Disp: , Rfl: Allergies: No Known Allergies Medical History: Past Medical History: Diagnosis Date ??? 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 Asthma ??? BMI 40.0-44.9, adult ([facility]) 03/28/2020 ??? Depression with anxiety 12/12/2014 ??? GERD (gastroesophageal reflux disease) ??? 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 Hyperlipidemia 02/21/2015 ??? Hypertension, benign 01/15/2017 ??? IIH (idiopathic intracranial hypertension) ??? Morbid obesity ([facility]) 02/21/2015 ??? Non-small cell carcinoma of lung ([facility]/HCC) s/p right lobectomy ??? Obesity ??? Varicose [...] resource strain: Not on file ??? Food insecurity Worry: Not on file Inability: Not on file ??? Transportation needs Medical: Not on file Non-medical: Not on file Tobacco Use ??? Smoking status: Never Smoker ??? Smokeless tobacco: Never Used Substance and Sexual Activity ??? Alcohol use: Yes Frequency: 2-3 times a week Drinks per session: 1 or 2 Comment: 6 beers weekly ??? Drug use: No ??? Sexual activity: Yes Partners: Female Lifestyle ??? Physical activity Days per week: Not on file Minutes per session: Not on file ??? Stress: Not on file Relationships ??? Social connections Talks on phone: Not on file Gets together: Not on file Attends alevism service: Not on file Active member of club or organization: Not on file Attends meetings of clubs or organizations: Not on file Relationship status: Not on file ??? Intimate partner violence Fear of current or ex partner: Not on file Emotionally abused: Not on file Physically abused: Not on file Forced sexual activity: Not on file Other Topics Concern ??? Service Not Asked ??? Blood Transfusions Not Asked ??? Caffeine Concern Yes ??? Occupational Exposure Not Asked ??? Hobby Hazards Not Asked ??? Sleep Concern Not Asked ??? Stress Concern Not Asked ??? Weight Concern Not Asked ??? Special Diet Yes ??? Back Care Not Asked ??? Exercise No ??? Bike Helmet Not Asked ??? Seat Belt Yes ??? Self-Exams Not Asked ??? Wheelchair Not Asked ??? Walker Not Asked ??? Upper extremity braces/slings Not Asked ??? Lower extermity braces/slings Not Asked ??? Self Care Not Asked Social History Narrative Family History: Family History Problem Relation Name Age of Onset ??? Cancer Mother bone ??? Heart Disease Father 65 PE: Physical Exam Constitutional: He is oriented to person, place, and time and well-developed, well-nourished, and in no distress. HENT: Head: Normocephalic and atraumatic. Right Ear: External ear normal. Left Ear: External ear normal. Mouth/Throat: No oropharyngeal exudate. Eyes: Pupils are equal, round, and reactive to light. Conjunctivae and EOM are normal. No scleral icterus. Neck: Normal range of motion. Neck supple. No tracheal deviation present. No thyromegaly present. Cardiovascular: Normal rate, regular rhythm and normal heart sounds. No murmur heard. Pulmonary/Chest: Effort normal and breath sounds normal. No stridor. No respiratory distress. He has no wheezes. He has no rales. Abdominal: Soft. Bowel sounds are normal. He exhibits no distension and no mass. There is no abdominal tenderness. There is no rebound and no guarding. Musculoskeletal: Normal range of motion. General: No deformity. Lymphadenopathy: He has no cervical adenopathy. Neurological: He is alert and oriented to person, place, and time. Gait normal. Skin: Skin is warm and dry. No rash noted. No erythema. No pallor. Psychiatric: Mood and affect normal. Nursing note and vitals reviewed. Filed Vitals: 03/28/20 1238 03/28/20 1343 BP: (!) 155/100 122/70 Pulse: 79 Resp: 16 Temp: 98.4 ??F (36.9 ??C) SpO2: 99% Weight: (!) 153.3 kg (338 lb) Height: 6' 3 (1.905 m) Labs: Labs Reviewed Diagnoses/Impression: 1. Essential hypertension 2. Need for immunization against influenza [36531] FLU VACC QUAD 6 MONTHS+ 0.5 ML (SINGLE DOSE SYRINGE FLUZONE, FLUARIX, FLULAVAL OR SINGLE DOSE VIAL FLUZONE) 3. Mild intermittent asthma without complication albuterol sulfate HFA (PROAIR HFA) 108 (90 Base) MCG/ACT inhaler 4. LEONOR (obstructive sleep apnea) 5. Mixed hyperlipidemia Chronic LIPID PANEL TSH W/REFLEX URINALYSIS WI REFLEX TO CULTURE COMPREHENSIVE METABOLIC PANEL 6. High grade neuroendocrine carcinoma (CMS/HCC) 7. Insomnia, unspecified type traZODone 50 MG tablet 8. Need for hepatitis C screening test HEPATITIS C ANTIBODY PROSTATE SPECIFIC ANTIGEN,SCREENING 9. Prostate cancer screening 10. BMI 40.0-44.9, adult (CMS/HCC) Chronic CBC W/DIFF AUTOMATED LIPID PANEL TSH W/REFLEX PROSTATE SPECIFIC ANTIGEN,SCREENING URINALYSIS WI REFLEX TO CULTURE COMPREHENSIVE METABOLIC PANEL Recommendations and Plan: 1. Need for immunization against influenza - [67003] FLU VACC QUAD 6 MONTHS+ 0.5 ML (SINGLE DOSE SYRINGE FLUZONE, FLUARIX, FLULAVAL OR SINGLE DOSE VIAL FLUZONE) 2. Mild intermittent asthma without complication - albuterol sulfate HFA (PROAIR HFA) 108 (90 Base) MCG/ACT inhaler; Inhale 2 puffs into the lungs every 6 (six) hours as needed for Wheezing. Dispense: 1 Inhaler; Refill: 0 3. LEONOR (obstructive sleep apnea) Discussed strategies to use CPAP. 4. Essential hypertension Elevated initially, improved upon recheck. Continue current meds. 5. Mixed hyperlipidemia - LIPID PANEL; Future - TSH W/REFLEX; Future - URINALYSIS WI REFLEX TO CULTURE; Future - COMPREHENSIVE METABOLIC PANEL; Future Stable. Continue meds 6. High grade neuroendocrine carcinoma (CMS/HCC) Follow up with surgeon and services executive. 7. Insomnia, unspecified type - traZODone 50 MG tablet; Take 1 tablet (50 mg total) by mouth nightly at bedtime for 30 days. Dispense: 30 tablet; Refill: 1 Tx options discussed with pt today---Advised of risks, benefits and side effects of trazodone. Pt is to let me know how this works for him. 8. Need for hepatitis C screening test - HEPATITIS C ANTIBODY; Future 9. Prostate cancer screening Will check PSA-- more plan after results if needed. 10. BMI 40.0-44.9, adult (CMS/HCC) - CBC W/DIFF AUTOMATED; Future - LIPID PANEL; Future - TSH W/REFLEX; Future - PROSTATE SPECIFIC ANTIGEN,SCREENING; Future - URINALYSIS WI REFLEX TO CULTURE; Future - COMPREHENSIVE METABOLIC PANEL; Future TLC's and dietary changes conducive to weight loss discussed with pt. Orders Placed This Encounter ??? HEPATITIS C ANTIBODY ??? CBC W/DIFF AUTOMATED ??? LIPID PANEL ??? TSH W/REFLEX ??? PROSTATE SPECIFIC ANTIGEN,SCREENING ??? URINALYSIS WI REFLEX TO CULTURE ??? COMPREHENSIVE METABOLIC PANEL ??? [83490] FLU VACC QUAD 6 MONTHS+ 0.5 ML (SINGLE DOSE SYRINGE FLUZONE, FLUARIX, FLULAVAL OR SINGLE DOSE VIAL FLUZONE) ??? albuterol sulfate HFA (PROAIR HFA) 108 (90 Base) MCG/ACT inhaler ??? traZODone 50 MG tablet Cannot display discharge medications since this is not an admission. PCP: ZEB Nunn 03/30/[address]/MEDICAL INTERPRETER documented in this encounter Plan of Treatment Upcoming Encounters Date Type Department Care Team (Late st Contact Info) Description 03/28/2024 7:[address]/MEDICAL INTERPRETER Hospital Encounter [facility] [place] [address] Antwan Stone DPM [address], [place] [address] 03/28/2024 7:[address]/MEDICAL INTERPRETER [facility]esthesia [place] [address] Shanelle Avila, [place] [address] 03/28/2024 7:[address]/MEDICAL INTERPRETER - 03/28/2024 8:[address]/MEDICAL INTERPRETER [place] [address] Antwan Stone DPM [address], [place] [address] REMOVAL OF HARDWARE LEFT FOOT 04/05/2024 8:[address]/MEDICAL INTERPRETER Office Visit [facility] [address] [address] Dominick Mccloud MD [facility] [address] [place], [place] [id number] Scheduled Procedures Name Priority Associated Diagnoses Date/Ti me REMOVAL PLATE SCREW OR PIN SCHED BY FAX 02/08/24 [facility] PHONE ASSESS 03/28/2024 7:[address]/MEDICAL INTERPRETER documented as of this encounter Visit Diagnoses Diagnosis Essential hypertension- Primary Unspecified essential hypertension Need for immunization against influenza Need for prophylactic vaccination and inoculation against influenza Mild intermittent asthma without complication (HHS/HCC) Unspecified asthma LEONOR (obstructive sleep apnea) Obstructive sleep apnea (adult) (pediatric) Mixed hyperlipidemia High grade neuroendocrine carcinoma (CMS/HCC HHS/HCC) Malignant poorly differentiated neuroendocrine carcinoma, any site Insomnia, unspecified type Need for hepatitis C screening test Special screening examination for other specified viral diseases Prostate cancer screening Special screening for malignant neoplasm of prostate BMI 40.0-44.9, adult (CMS/HCC HHS/HCC) Body Mass Index 40.0-44.9, adult Painful orthopaedic hardware (CMS/HCC)- Primary documented in this encounter Additional Health Concerns Assessment Noted Time PHQ-9 Depression Total Score: 4 03/28/19 21 1:[address]/MEDICAL INTERPRETER documented as of this encounter Care Teams Client Care Specialist Relationship Specialty Start Date End Date Clara Stanley APNP [address] [place] [id number] PCP - General NURSE PRACTITIONER 06/01/18 Dominick Mccloud MD [facility] [address] [place] [address] Belt Screener Perfumer CARDIOVASCULAR DISEASE 03/28/19 Alexis Lopez MD [address] [facility] [address] [place] [address] [place] [address] PULMONARY DISEASE 10/21/19 documented as of this encounter
--- OUTSIDE RECORDS SUMMARY | 2024-03-02 03:21 | XMS_ITS | Encounter Summary ---
Author Organization [facility] Address [address] [place] [address]. [place], [place] [id number] [place] [id number] Care Team Providers Care Chocolate Temperer Name Role Phone Irwin Stanley Primary Care Provider [phone] Dominick Mccloud MD Unavailable [phone] Alexis Lopez MD Unavailable [phone] Reason for Visit * Auth/Cert Specialty Diagnoses / Procedures Referred By Erik [email or web address] Referred To Contact Diagnoses Varicose veins of right lower extremity with pain VARICOSE VEINS OF RIGHT LOWER EXTREMITY WITH PAIN Procedures RIGHT STAB PHLEBECTOMY Referral ID Status Reason Start Date Expiration Date Visits Re quested Visits Authorized [id number] 1 1 Encounter Details Date Type Department Care Team (Late st Contact Info) Description 10/31/2019 11:00 AM CDT - 10/31/2019 12:[address] [facility] [place], [place] [id number] Antwan Pineda MD Three [facility]. [facility] [address] [place] [address] RIGHT STAB PHLEBECTOMY Surgery Details Date/Time Status Location OR Service Patient Class Case Class Case Type Trauma Case? 10/31/2019 11:00 AM Posted [facility] OR OR 5 (Cyndee hein) Vascular Short Stay/Outpat ient Surgery E - Elective No Panel 1 Procedure LRB Anes Op Region Wound Class Comments RIGHT STAB PHLEBECTOMY Right General Leg Lower Clean Surgeon Surgeon Role Service Panel Antwan Pineda MD Primary Vascular 1 documented in this encounter Social History [...] have Coronavirus / COVID-19? No / Unsure 10/31/2019 8:05 AM CDT documented as of this encounter Last Filed Vital Signs Vital Sign Reading Time Taken Comments Blood Pressure 131/79 10/31/2019 12:32 PM CDT Pulse 68 10/31/2019 12:32 PM CDT Temperature 36.8 ??C (98.3 ??F) 10/31/2019 1 2:32 PM CDT Respiratory Rate 18 10/31/2019 12:3 2 PM CDT Oxygen Saturation 99% 10/31/2019 12: 32 PM CDT Inhaled Oxygen Concentration - - Weight 146.6 kg (323 lb 3.1 oz) 10/31/2019 8:46 AM CDT Height 190.5 cm (6' 3 ) 10/31/2019 8:46 AM CDT Body Mass Index 40.4 10/31/2019 8:46 AM CDT documented in this encounter Discharge Instructions * Discharge Instructions* Deyanira kOeefe RN - 10/31/2019 12:49 PM CDT No heavy lifting or straining for 3 days. Ambulate each day. Remove dressing in AM. May shower in AM. Rewrap the extremity with an SURENDRA wrap or use compression stocking for the next 5 days. Resume all medications. Do not take pain medication while driving, making important decisions, or operating heavy equipment. Call office for follow up appointment in 3-4 weeks. No swimming or tub bathing for 1 week. DERMABOND/MEDICAL GLUE INSTRUCTIONS Keep incision dry. No tub bathes, hot tubs, or swimming. No ointments on incision. Let glue flake off on its own, do not pick at glue. Because you had anesthesia No driving for 24 hours or while taking narcotic pain medication No alcohol, no operating machinery, do not sign any binding contracts for 24 hours or while taking narcotic pain medications. Take pain medicine with food. Drink lots of fluids Use stool softener while on narcotics Avoid greasy, fried or spicy foods Must have a responsible adult to stay with you for the rest of today and tonight. If you have chest pain, shortness of breath, calf pain, excessive bleeding or drainage, if you cannot hold down anything to eat or drink, or if you cannot urinate, please call 911 or go to the nearest emergency room. If you have fever, pain not controlled by your medication, signs of infection such as redness or discharge or swelling at the site, or any other questions or concerns, please call your surgeon. * Attachments The following attachments cannot be sent through Care Everywhere. * Surgical Wound Discharge Instructions (Malagasy) * Hydrocodone and Acetaminophen, ADULT (Malagasy) * General Anesthesia Discharge Instructions (Malagasy) documented in this encounter Medications at Time of Discharge cetirizine (ZYRTEC) 10 MG tablet Take 1 tablet (10 mg total) by mouth daily. 5 Multiple Vitamins-Minerals (MULTIVITAMIN ADULT OR) Take 1 tablet by mouth daily. vitamin C 1000 MG tablet Take 1 tablet (1,000 mg total) by mouth daily. vitamin D3, cholecalciferol, 1.25 MG (53336 UT) capsule Take 1 capsule (50,000 Units total) by mouth weekly. acetaZOLAMIDE ER 500 MG 12 hr capsuleIndications: intercranial hypertension Take 500 mg by mouth 2 (two) times daily. Indications: intercranial hypertension 0 03/28/19 21 amLODIPine 10 MG tabletIndications:H ypertension, benign Take 1 tablet (10 mg total) by mouth nightly at bedtime. 90 tablet 3 0 07/19/19 21 Budesonide-Formoter ol Fumarate (SYMBICORT IN) Inhale 2 Inhalers into the lungs 2 (two) times a day. 03/27/19 23 fluticasone propionate 50 MCG/ACT nasal spray 1 spray by Nasal route daily as needed. 09/30/19 23 gabapentin 300 MG capsuleIndications: Neuropathy Take 1 capsule (300 mg total) by mouth 3 (three) times daily. 270 capsule 2 0 01/24/20 21 HYDROcodone-acetami nophen 5-325 MG tabletIndications:A cute Pain < 7 Day Supply Take 1 tablet by mouth every 6 (six) hours as needed for Pain. Indications: Acute Pain < 7 Day Supply 5 tablet 0 11/07/19 20 LORazepam 0.5 MG tabletIndications:D epression with anxiety Take 1 tablet (0.5 mg total) by mouth every 8 (eight) hours as needed for Anxiety. 60 tablet 0 01/24/20 21 PRAVASTATIN 20 MG tabletIndications:M ixed hyperlipidemia TAKE 1 TABLET BY MOUTH EVERY NIGHT AT BEDTIME 90 tablet 3 0 07/19/19 21 sodium chloride 0.9 % solution Inject 50 mLs into the vein continuous. 500 mL 0 03/28/19 21 documented as of this encounter H&P Notes * Antwan Pineda MD - 10/31/2019 9:48 AM CDT Images from the original note were not included. History and Physical History Mp Kulkarni is a 54-year-old male who presents with varicose veins This is a 54-year-old male who presents with painful varicose veins of the right lower extremity. The patient presents for phlebectomy of the vein segments. The patient has also had some bleeding episodes involving the varicosities. He denies recent illness or infection. Past Medical History: Diagnosis Date ??? 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 Asthma ??? Depression with anxiety 12/12/2014 ??? GERD (gastroesophageal reflux disease) ??? Hyperlipidemia 02/21/2015 ??? Hypertension, benign 01/15/2017 [...] Used Substance Use Topics ??? Alcohol use: Yes Frequency: 2-3 times a week Drinks per session: 1 or 2 Comment: 6 beers weekly ??? Drug use: No Family History Problem Relation Name Age of Onset ??? Cancer Mother bone ??? Heart Disease Father 65 ??? ceFAZolin 3 g Intravenous Once Prior to Admission medications Medication Sig Start Date End Date Taking? Authorizing Provider acetaZOLAMIDE ER 500 MG 12 hr capsule Take 500 mg by mouth 2 (two) times daily. Indications: intercranial hypertension 03/24/19 Yes Doc Abstract amLODIPine 10 MG tablet Take 1 tablet (10 mg total) by mouth nightly at bedtime. 08/03/19 Yes ZEB Nunn Budesonide-Formoterol Fumarate (SYMBICORT IN) Inhale 2 Inhalers into the lungs 2 (two) times a day.Yes Doc Abstract cetirizine (ZYRTEC ALLERGY) 10 MG tablet Take 10 mg by mouth nightly at bedtime. 08/08/14 Yes Doc Abstract fluticasone propionate 50 MCG/ACT nasal spray 1 spray by Nasal route daily. Yes Doc Abstract gabapentin 300 MG capsule Take 1 capsule (300 mg total) by mouth 3 (three) times daily. Patient taking differently: Take 300 mg by mouth 3 (three) times daily as needed. 09/05/19 Yes ZEB Jackman LORazepam 0.5 MG tablet Take 1 tablet (0.5 mg total) by mouth every 8 (eight) hours as needed for Anxiety. 09/26/19 Yes ZEB Nunn Multiple Vitamins-Minerals (MULTIVITAMIN ADULT OR) Yes Doc Abstract PRAVASTATIN 20 MG tablet TAKE 1 TABLET BY MOUTH EVERY NIGHT AT BEDTIME 08/03/19 Yes ZEB Nunn sodium chloride 0.9 % solution Inject 50 mLs into the vein continuous. 10/31/19 Yes Antwan Pineda MD vitamin C 1000 MG tablet Take 1,000 mg by mouth daily. Yes Doc Abstract vitamin D3, cholecalciferol, 1.25 MG (23324 UT) capsule Take 50,000 Units by mouth weekly. Yes Doc Abstract No Known Allergies Review of Systems Constitutional: Negative. HENT: Negative. Eyes: Negative. Respiratory: Negative. Cardiovascular: Positive for leg swelling. Gastrointestinal: Negative. Endocrine: Negative. Genitourinary: Negative. Musculoskeletal: Positive for myalgias. Allergic/Immunologic: Negative. Neurological: Negative. Hematological: Negative. Psychiatric/Behavioral: Negative. Physical Exam Filed Vitals: 10/20/19 1216 10/31/19 0846 BP: 140/80 Pulse: 77 Resp: 16 Temp: 98.2 ??F (36.8 ??C) TempSrc: Oral SpO2: 100% Weight: (!) 142.9 kg (315 lb) (!) 146.6 kg (323 lb 3.1 oz) Height: 6' 3 (1.905 m) 6' 3 (1.905 m) PainSc: 0 (0-10 Scale) Physical Exam: Physical Exam Constitutional: He is oriented to person, place, and time. No distress. HENT: Head: Normocephalic and atraumatic. Eyes: Conjunctivae are normal. No scleral icterus. Neck: Neck supple. Cardiovascular: Normal rate. Pulmonary/Chest: Effort normal. Neurological: He is alert and oriented to person, place, and time. Skin: Skin is dry. He is not diaphoretic. Assessment Principal Problem: Varicose veins of right lower extremity with pain SNOMED CT(R): PAIN CO-OCCURRENT AND DUE TO VARICOSE VEINS OF RIGHT LEG Plan The patient presents with symptomatic varicose veins of the right lower extremity. The patient presents for phlebectomy of the symptomatic vein segments. The planned procedure, risks, benefits, expected outcomes, postoperative course and discharge instructions were discussed with the patient. Risk and benefits discussed included but were not limited to bleeding, infection, sepsis, deep vein thrombosis, pulmonary embolus, injury to nerve, injury to vein, injury to artery, permanent disability, reaction medications and reaction anesthesia. Patient expressed understanding wishes to proceed with s asa. ANTWAN PINEDA MD documented in this encounter Nursing Notes * Azalea Leyva RN - 10/31/2019 10:52 AM CDT Updated patient's , Faith, on procedure start via phone at 1109 and on procedure end at 1133. * Tameka Forde RN - 10/31/2019 9:00 AM CDT Hibiclens showers at home x 2, nose to toes protocol completed. CHG wipes used on arrival to OPS, etyhl alcohol swabs x 2 placed in bilateral nares per RN. Pt tolerated well. Patient informed this nurse that they have self isolated at home since their covid testing was done. documented in this encounter OR Notes * Op Note - Antwan Pineda MD - 10/31/2019 12:00 AM CDT PROCEDURE: Phlebectomy, symptomatic varicose veins, right lower extremity. SURGEON: Antwan Pineda MD. ANESTHESIA: General. ESTIMATED BLOOD LOSS: Less than 20 mL. SPECIMENS: Varicose veins. INDICATIONS FOR PROCEDURE: This is a 54-year-old male who presented with bleeding and painful varicose veins of the right lower extremity and presents at this time for phlebectomy of the symptomatic vein segments. Risks and benefits of the above-named procedure were discussed with the patient to his satisfaction. OPERATIVE REPORT: After informed consent was obtained, the patient was taken to the operating room and placed in supine position on the operating table. After the induction of adequate general endotracheal anesthesia, the right lower extremity was prepped and draped in standard sterile surgical fashion. After local infiltration of Marcaine, I made small skin incisions over the previously marked vein clusters. I then removed the varicosities with a vein hook through the skin incisions. Hemostasis was achieved using manual compression. Dermabond was applied to the incision sites as a dressing. The extremity was then dressed with 4 x 4s and wrapped with Kerlix and an Surendra wrap. The patient was then awakened, extubated and taken to the recovery room in stable condition. All needle, sponge and instrument counts were reported as correct. A total of 5 incisions were made during the procedure. #[id number] /[id number] * OR PreOp - Joyce Glover RN - 10/24/2019 10:[address] Lopez office to follow up on faxed request for pulmonary clearance. Faxed received and request being processed, awaiting Doctor's signature. FAX RECEIVED. * OR PreOp - Dahlia Cooper RN - 10/21/2019 1:[address] Lopez's office requesting pulmonary clearance. * OR PreOp - GALO Rueda - 10/21/2019 1:15 PM CDT Chart reviewed. Per phone interview, patient denies any SOB/CP with 2 FOS or recent changes in activity tolerance in past 6 months. Patient sees hospice executive director Dr. Mccloud and previous cardiac testing copied. Patient scheduled for COVID testing 10/28/19 High risk LEONOR Patient sees commanding officer traffic division Dr. Lopez with recent hx of lung cancer s/p lobectomy. Pulmonary clearance per Dr. Lopez. Mild risk. EKG 03/17/19 SINUS RHYTHM MARKED LEFT AXIS DEVIATION INCOMPLETE RIGHT BUNDLE BRANCH BLOCK Compared to ECG 06/28/2018 14:37:35 Left-axis deviation now present Rate 87 * OR PreOp - Lisseth Tan RN - 10/20/2019 12:11 PM CDT Can you climb 2 flights of stairs without CP or extreme SOB? yes Are you physically able to do the same things today that you could 6 months ago? yes Any recent heart testing? (EKG, stress test, Echo?) ekg early in 2019 to diagnose intracranial hypertension. If not on file here it was done at [facility]. Do you see a hospice executive director? Who is it? Dr. Mccloud Telephone consent obtained from patient for COVID-19 testing. Patient agrees to comply with self-isolation as instructed until day of surgery. Patient expressed understanding. documented in this encounter Plan of Treatment Upcoming Encounters Date Type Department Care Team (Late st Contact Info) Description 03/28/2024 7:30 AM [facility] Hospital Encounter [facility] [place] [address] Antwan Stone DPM [address], [place] [address] 03/28/2024 7:30 AM INSURANCE SALES PROFESSIONAL Anesthesia Event [facility] [address] Shanelle Avila, HORTICULTURE PROFESSOR [address] [facility] [place] [place] [address] 03/28/2024 7:30 AM INSURANCE SALES PROFESSIONAL - 03/28/2024 8:48 AM INSURANCE SALES PROFESSIONAL Surgery [facility] [place] [place] [address] Antwan Stone DPM [address], [place] [address] REMOVAL OF HARDWARE LEFT FOOT 04/05/2024 8:30 AM INSURANCE SALES PROFESSIONAL Office Visit Darren Chaudhari-O'F johnn [facility], [address] [place], [place] [phone] Dominick Mccloud MD Three [facility]. [address] [address] [place], [place] [id number] Scheduled Procedures Name Priority Associated Diagnoses Date/Ti me REMOVAL PLATE SCREW OR PIN SCHED BY FAX 02/08/24 [facility] PHONE ASSESS 03/28/2024 7:30 AM INSURANCE SALES PROFESSIONAL documented as of this encounter Procedures Procedure Name Priority Date/Time Associated Diagnosis Comments LIGATION VEIN STRIPPING 10/31/2019 10:40 AM CDT Varicose veins of right lower extremity with pain COMPREHENSIVE METABOLIC PANEL Routine 10/31/2019 9:20 AM CDT CBC W/DIFF AUTOMATED Routine 10/31/2019 9:20 AM CDT PATHOLOGY Routine 10/31/2019 12:00 AM CDT documented in this encounter Results * (ABNORMAL) COMPREHENSIVE METABOLIC PANEL (10/31/2019 9:20 AM CDT) GLUCOSE 109(H) 70 - 99 MG/DL 10/31/2019 10:14 AM CDT [facility] BUN 16 7 - 18 MG/DL 10/31/2019 10:14 AM CDT [facility] CREATININE S/P/B 0.74 0.7 - 1.3 MG/DL 10/31/2019 10:14 AM CDT [facility] SODIUM S/P/B 137 136 - 145 MMOL/L 10/31/2019 10:14 AM CDT [facility] POTASSIUM S/P/B 4.9 3.5 - 5.1 MMOL/L 10/31/2019 10:14 AM CDT [facility] Comment:SLIGHT HEMOLYSIS, RE SULT MAY BE AFFECTED. CHLORIDE S/P/B 112(H) 100 - 108 MMOL/L 10/31/2019 10:14 AM CDT [facility] CO2 19.8(L) 21 - 32 MMOL/L 10/31/2019 10:14 AM CDT [facility] CALCIUM S/P/B 9.0 8.5 - 10.1 MG/DL 10/31/2019 10:14 AM T [facility] BILIRUBIN TOTAL S/P/B 0.6 0.2 - 1.2 MG/DL 10/31/2019 10:14 AM T [facility] Comment: THIS ASSAY IS NOT RECOMMENDED FOR PATIENTS UNDERGOING TREATMENT WITH ELTROMBOPAG DUE TO THE POTENTIAL FOR FALSELY ELEVATED RESULTS. TOTAL PROTEIN S/P/B 7.6 6.4 - 8.2 G/DL 10/31/2019 10:14 AM T [facility] ALBUMIN S/P/B 3.4 3.4 - 5.0 G/DL 10/31/2019 10:14 AM T [facility] AST 40(H) 15 - 37 U/L 10/31/2019 10:14 AM T [facility] Comment:SLIGHT HEMOLYSIS, RE SULT MAY BE AFFECTED. ALT 24 16 - 60 U/L 10/31/2019 10:14 AM T [facility] ALKALINE PHOSPHATASE S/P/B 118 50 - 136 U/L 10/31/2019 10:14 AM T [facility] ANION GAP 5.2 5 - 15 MMOL/L 10/31/2019 10:14 AM T [facility] BUN CREATININE RATIO 21.7 6 - 26 10/31/2019 10:14 AM T [facility] A/G RATIO 0.8(L) 1.0 - 2.0 RATIO 10/31/2019 10:14 AM T [facility] EGFR NON-AFR. AMER. >90 >90 ML/MIN/1.7 3 M2 10/31/2019 10:14 AM CDT [facility] EGFR AFR. AMER. >90 >90 ML/MIN/1.7 3 M2 10/31/2019 10:14 AM CDT [facility] Comment: NOTE: eGFR is not calculated for patients <18 years of age. This is an estimated GFR (CKD EPI) and should not be used for calculating drug doses. 10/31/2019 9:20 AM CDT us Antwan Pineda MD LABORATORY Final Result [facility] [address] [place] [address], [place] [phone] * (ABNORMAL) CBC W/DIFF AUTOMATED (10/31/2019 9:20 AM CDT) WBC 9.3 4.5 - 11.0 x10'3/uL 10/31/2019 9:49 AM CDT [facility] RBC 4.97 4.70 - 6.10 x10'6/uL 10/31/2019 9:49 AM CDT [facility] HGB 13.7(L) 14.0 - 18.0 G/DL 10/31/2019 9:49 AM CDT [facility] HCT 42.4(L) 43.0 - 54.0 % 10/31/2019 9:49 AM CDT [facility] MCV 85.3 80.0 - 94.0 FL 10/31/2019 9:49 AM CDT [facility] MCH 27.6 27.0 - 31.0 PG 10/31/2019 9:49 AM CDT [facility] MCHC 32.3 32.0 - 36.0 G/DL 10/31/2019 9:49 AM CDT [facility] RDW 15.9(H) 11.5 - 14.5 % 10/31/2019 9:49 AM CDT [facility] PLT 243 130 - 400 x10'3/uL 10/31/2019 9:49 AM CDT [facility] MPV 11.9 9.3 - 12.2 FL 10/31/2019 9:49 AM CDT [facility] DIFFERENTIAL TYPE AUTOMATED DIFFERENTIAL 10/31/2019 9:49 AM CDT [facility] NEUTROPHILS % 73.1 % 10/31/2019 9:49 AM CDT [facility] LYMPHOCYTES % 13.3 % 10/31/2019 9:49 AM CDT [facility] MONOCYTES % 9.4 % 10/31/2019 9:49 AM CDT [facility] EOSINOPHILS 3.1 % 10/31/2019 9:49 AM CDT [facility] BASOPHILS 0.5 % 10/31/2019 9:49 AM CDT [facility] IMMATURE GRANS % 0.6 % 10/31/19 20 9:49 AM CDT [facility] ABS. NEUTROPHILS TOTAL 6.75 1.80 - 7.70 x10'3/uL 10/31/2019 9:49 AM CDT [facility] ABS. LYMPHOCYTES 1.23 1.00 - 4.80 x10'3/uL 10/31/2019 9:49 AM CDT [facility] ABS. MONOCYTES 0.87(H) 0.30 - 0.82 x10'3/uL 10/31/2019 9:49 AM CDT [facility] ABS. EOSINOPHILS 0.29 0.04 - 0.54 x10'3/uL 10/31/2019 9:49 AM CDT [facility] ABS. BASOPHILS 0.05 0.01 - 0.08 x10'3/uL 10/31/2019 9:49 AM CDT [facility] ABS. IMMATURE GRANULOCYTES 0.06 0.00 - 0.49 x10'3/uL 10/31/2019 9:49 AM CDT [facility] 10/31/2019 9:20 AM CDT us Antwan Pineda MD LABORATORY Final Result [facility] [address] [facility] [place] [address], * Pathology (10/31/2019 12:00 AM CDT) COPATH REPORT ? [facility] ? [address] ? [place], [place] [address] ? [id number] ? Department of Pathology ? Pathology Report ? SURGICAL FINAL REPORT Patient Name: MP KULKARNI ?? : 1965 (Age: 54) ? Location: [facility] Gender: M ?Collected Date: 10/31/2019 Med Rec #: [id number] ?Date Received: 10/31/2019 Date Reported: 11/01/2019 Provider: ANTWAN PINEDA MD ?IRWIN CARRINGTON Specimen(s) Vein, varicose Final Pathologic Diagnosis VEINS, RIGHT LOWER LEG, EXCISION: ? DILATED VEINS CONSISTENT WITH VARICOSITY Electronically Signed Out ? LILLIANA OSBORN MD Pathologist SMO:gabriella Microscopic Description: Microscopic examination substantiates the above diagnosis. Clinical History Varicose veins of right lower extremity with pain Gross Description The specimen is received in a single formalin-filled container labeled with the patient's name (Mp Kulkarni), (1965) and varicose veins. The specimen consists of seven pink-white, rubbery, tortuous, irregular segments of vasculature that range from 0.3-1.2 cm in length x 0.2-0.4 cm in diameter. ??No focally indurated areas are grossly identified. ??The specimen is entirely submitted intact in one cassette. : Billing Fee Code(s): 71170 [facility] Tissue specimen (specimen) (OTHER (type in comments)) 10/31/2019 11:21 AM CDT us Antwan Pineda MD PATHOLOGY/CYTOLOGY ORDERABLES Fi nal Result [facility] [address] [place] [address], [place] [phone] documented in this encounter Visit Diagnoses Diagnosis Varicose veins of right lower extremity with pain- Primary Varicose veins of lower extremities with other complications Varicose veins of right lower extremity with pain Varicose veins of lower extremities with other complications Painful orthopaedic hardware (CMS/HCC)- Primary documented in this encounter Admitting Diagnoses Diagnosis Varicose veins of right lower extremity with pain Varicose veins of lower extremities with other complications documented in this encounter Administered Medications Inactive Administered Medications - up to 3 most recent administrations Medication Order MAR Action Action Date Dose Rate Site BUpivacaine (MARCAINE) 0.25 % injection As needed, Starting on Thu10/31/19 at 1107, Until Thu10/31/19 at 1136, Intra-Op Given 10/31/2019 11:07 AM CDT 2 mLs Operative Site famotidine (PEPCID) injection 20 mg 20 mg, Intravenous, Once, 1 dose, On Thu10/31/19 at 1015, On admission IV Push over 2 minutes, Pre-Op Given 10/31/2019 10:30 AM CDT 20 mg HYDROcodone-acetaminop hen (NORCO) 5-325 MG tablet 1 tablet 1 tablet, Oral, Once, 1 dose, On Thu10/31/19 at 1215, Maximum dose of acetaminophen is 4000 mg from all sources in 24 hours. Given During Downtime 10/31/2019 12:17 PM CDT 1 tablet lactated ringers infusion at 10 mL/hr, Intravenous, Continuous, Starting on Thu10/31/19 at 1015, Until Thu10/31/19 at 1531, Infuse at TKO rate, Pre-Op New Bag 10/31/2019 9:30 AM CDT 10 mL/hr documented in this encounter Active and Recently Administered Medications Times are shown in CDT. Scheduled Medication Order 10/29/2019 10/30/2019 10/31/2019 ceFAZolin (ANCEF) 3 g in sodium chloride 0.9 % 100 mL IVPB (COMPLETED) 3 g, Intravenous, at 200 mL/hr, Once, 1 dose, On Thu10/31/19 at 0830, Per P&T approved protocol for wt> 120kg, Pre-Op 1055 (New Bag - Prov ider: Donovan Jj CRNA)1125 (Infusion Stop Time - Provider: Donovan Jj CRNA) famotidine (PEPCID) injection 20 mg (COMPLETED) 20 mg, Intravenous, Once, 1 dose, On Thu10/31/19 at 1015, On admission IV Push over 2 minutes, Pre-Op 1030 (Given - Provid er: Tameka Forde RN) HYDROcodone-acetaminophen (NORCO) 5-325 MG tablet 1 tablet (COMPLETED) 1 tablet, Oral, Once, 1 dose, On Thu10/31/19 at 1215, Maximum dose of acetaminophen is 4000 mg from all sources in 24 hours. 1217 (Given During D owntime - Provider: Cheri Duran RN) Continuous Medication Order 10/29/2019 10/30/2019 10/31/2019 lactated ringers infusion at 10 mL/hr, Intravenous, Continuous, Starting on Thu10/31/19 at 1015, Until Thu10/31/19 at 1531, Infuse at TKO rate, Pre-Op 0930 (New Bag - Prov ider: Tameka Forde RN) PRN Medication Order 10/29/2019 10/30/2019 10/31/2019 BUpivacaine (MARCAINE) 0.25 % injection (CANCELED) As needed, Starting on Thu10/31/19 at 1107, Until Thu10/31/19 at 1136, Intra-Op 1107 (Given - Provid er: Antwan Pineda MD) documented in this encounter Care Teams Chocolate Temperer Relationship Specialty Start Date End Date Irwin Stanley APNP [address] [place] [address] [id number] PCP - General NURSE PRACTITIONER 06/01/18 Dominick Mccloud MD [id number] [place] [address] Kersey Artificial Leather Calender Operator CARDIOVASCULAR DISEASE 03/28/19 Alexis Lopez MD [address] [place] [address] PULMONARY DISEASE 10/21/19 documented as of this encounter
--- OUTSIDE RECORDS SUMMARY | 2024-03-02 03:21 | XMS_ITS | Encounter Summary ---
Author Organization [facility] Address [address] [place] [address]. [place], [place] [address] [place] [address] Care Team Providers Care Telecommunication Systems Designer Name Role Phone Clara Stanley Primary Care Provider [phone] Dominick Mccloud MD Unavailable [phone] Alexis Lopez MD Unavailable [phone] Reason for Visit * Reason Comments Hypertension 6 mo fu Lipids Snoring/sleep Apnea Encounter Details Date Type Department Care Team (Latest Contact Info) Description 11/07/2019 10:15 AM CDT Office Visit [facility] at [facility] [address] [place], [place] [id number] Earnestine Perry, T[facility] [address] [place], [place] [id number] Hypertension (6 mo fu); Lipids; Snoring/sleep Apnea Social History Tobacco Use Types Packs/Day Years [...] have Coronavirus / COVID-19? No / Unsure 11/07/2019 10:16 AM CDT documented as of this encounter Last Filed Vital Signs Vital Sign Reading Time Taken Comments Blood Pressure 122/84 11/07/2019 10:25 AM CDT Pulse 74 11/07/2019 10:25 AM CDT Temperature - - Respiratory Rate - - Oxygen Saturation 98% 11/07/2019 10:25 AM CDT Inhaled Oxygen Concentration - - Weight 147.4 kg (325 lb) 11/07/2019 10:25 AM CDT Height 193 cm (6' 4 ) 11/07/2019 10:25 AM CDT Body Mass Index 39.56 11/07/2019 10:25 AM CDT documented in this encounter Patient Instructions * Patient Instructions* Isabel Phillips - 11/07/2019 10:15 AM CDT Patient Education Patient Education High Blood Pressure in Adults The Basics Written by the doctors and editors at [facility] What is high blood pressure???--??High blood pressure is a condition that puts you at risk for heart attack, stroke, and kidney disease. It does not usually cause symptoms. But it can be serious. When your doctor or nurse tells you your blood pressure, they will say 2 numbers. For instance, your doctor or nurse might say that your blood pressure is 130 over 80. The top number is the pressure inside your arteries when your heart is zain. The bottom number is the pressure inside yourarteries when your heart is relaxed. Elevated blood pressure is a term doctors or nurses use as a warning. People with elevated blood pressure do not yet have high blood pressure. But their blood pressure is not as low as it should befor good health. Many experts define high, elevated, and normal blood pressure as follows: ?? High - Top number of 130 or above and/or bottom number of 80 or above ?? Elevated - Top number between 120 and 129 and bottom number of 79 or below ?? Normal - Top number of 119 or below and bottom number of 79 or below This information is also in the table (table 1). How can I lower my blood pressure???--??If your doctor or nurse has prescribed blood pressure medicine, the most important thing you can do is to take it. If it causes side effects, do not just stop taking it. Instead, talk to your doctor or nurse about the problems it causes. They might be able tolower your dose or switch you to another medicine. If cost is a problem, mention that too. They might be able to put you on a less expensive medicine. Taking your blood pressure medicine can keep youfrom having a heart attack or stroke, and it can save your life! Can I do anything on my own???--??You have a lot of control over your blood pressure. To lower it: ?? Lose weight (if you are overweight) ?? Choose a diet low in fat and rich in fruits, vegetables, and low-fat dairy products ?? Reduce the amount of salt you eat ?? Do something active for at least 30 minutes a day on most days of the week ?? Cut down on alcohol (if you drink more than 2 alcoholic drinks per day) It's also a good idea to get a home blood pressure meter. People who check their own blood pressureat home do better at keeping it low and can sometimes even reduce the amount of medicine they take. All topics are updated as new evidence becomes available and our peer review process is complete. This topic retrieved from [employer] on: Sep 08, 2019. Topic 60302 Version 14.0 Release: 28.3.2 - C28.250 ?2019??[employer] and/or its affiliates.??All rights reserved. table 1: Definition of normal and high blood pressure Level Top number Bottom number High 130 or above 80 or above Elevated 120 to 129 79 or below Normal 119 or below 79 or below ?? These definitions are from the [place] [employer]/[place] [employer] Association. Other expert groups might use slightly different definitions. ?? Elevated blood pressure is a term doctor or nurses use as a warning. It means you do not yet have high blood pressure, but your blood pressure is not as low as it should be for good health. Graphic 84452 Version 6.0 Consumer Information Use and Disclaimer This information is not specific medical advice and does not replace information you receive from your health care provider. This is only a brief summary of general information. It does NOT include all information about conditions, illnesses, injuries, tests, procedures, treatments, therapies, discharge instructions or life-style choices that may apply to you. You must talk with your health care provider for complete information about your health and treatment options. This information should not be used to decide whether or not to accept your health care provider's advice, instructions or recommendations. Only your health care provider has the knowledge and training to provide advice that is right for you.The use of [employer] content is governed by the [employer] Terms of Use. ??2020 [employer]. All rights reserved. Copyright ?2019??[employer]. and/or its affiliates.??All rights reserved. documented in this encounter Progress Notes * Earnestine Perry NP - 11/07/2019 10:15 AM CDT Reason for Visit: Hypertension (6 mo fu); Lipids; and Snoring/sleep Apnea History of Present Illness: Mr. Kulkarni is a 54-year-old male with a history of HTN and HLD. 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 OV with cardiothoracic team in September was unremarkable and he was scheduled for repeat CT scan and follow up at 6 months. He returns to our clinic today for a scheduled 6 month follow up. He is doing very well overall from a cardiac standpoint. He denies any chest pain, SOB, palpitations, dizziness. He does report intermittent lower extremity swelling that comes and goes, always resolved by morning. He underwent home sleep study last week and follows with Dr. Lopez. He continues on Diamox for hx of intracranial HTN and is scheduled to neurology next month. ASSESSMENT AND PLAN: PROBLEM LIST: 1. Intracranial hypertension. 2. Hypertension. 3. Dyslipidemia. 4. GERD. 5. 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 Varicose veins s/p Right stab phlebectomy 7. Possible LEONOR PLAN Hypertension: well controlled on amlodipine. Dyslipidemia: continues on pravastatin. Recent lipid panel with mildly elevated TC and LDL. 10 yearrisk at this time is 4.3%. Advised dietary modifications and discussed in detail. No med changes atthis time. Swelling: none on exam today- encouraged use of compression stockings especially given varicose veins. Encouraged continued weight loss with exercise and heart healthy diet. Would not recommend keno terminal operator use of Keto diet. It is my pleasure to participate in the care of Mr. Kulkarni. He will return for follow up in 12 months, earlier if needed. DATA REVIEWED: 03/17/19 EKG personally overread: Normal sinus rhythm, left axis deviation, partial right bundle branch block. 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 He has no history of tobacco use, reports rare alcohol use, denies illicit substance use. FAMILY HISTORY: Significant for father who had coronary disease in his 60s. Medications: Current Outpatient Medications: ??? acetaZOLAMIDE ER 500 MG 12 hr capsule, Take 500 mg by mouth 2 (two) times daily. Indications: intercranial hypertension , Disp: , Rfl: ??? amLODIPine 10 MG tablet, Take 1 [...] Rfl: ??? vitamin D3, cholecalciferol, 1.25 MG (19643 UT) capsule, Take 50,000 Units by mouth weekly., Disp: , Rfl: ??? sodium chloride 0.9 % solution, Inject 50 mLs into the vein continuous., Disp: 500 mL, Rfl: 0 No Known Allergies Past Medical History: Diagnosis [...] Relation Name Status ??? Mother Alive, age 80y ??? Father Alive, age 83y Review of Systems Constitutional: Negative for recent [...] new or significant memory loss. Filed Vitals: 11/07/19 1025 BP: 122/84 Pulse: 74 SpO2: 98% Weight: (!) 147.4 kg (325 lb) Height: 6' 4 (1.93 m) Body mass index is 39.56 kg/m??. Physical Exam Constitutional: No distress. HENT: Teeth/gums normal. Eyes: Conjunctivae normal. Neck: Neck supple. No JVD. Pulmonary: Effort normal. Breath sounds normal. Abdomen: No tenderness. No mass. No hepatomegaly. No splenomegaly. Abdominal aorta not palpably enlarged. No abdominal aortic bruit. Neurological: Alert. Oriented x 3. Appropriate for situation. Skin: Dry. Warm. No cyanosis. No clubbing. [...] and No murmur. Cardiovascular Comments: Diagnoses/Impression: 1. Essential (primary) hypertension 2. Pure hypercholesterolemia 3. Varicose veins of right lower extremity with complications 4. Obstructive sleep apnea syndrome Referring Provider: No ref. provider found PCP: ZEB Nunn documented in this encounter Plan of Treatment Upcoming Encounters Date Type Department Care Team (Late st Contact Info) Description 03/28/2024 7:[address] [facility] Hospital Encounter [facility] [place] [address] Antwan Stone DPM [address], [place] [address] 03/28/2024 7:[address] [facility] Anesthesia Event [employer] OR [facility] [place] [address] Shanelle Avila, AIRPLANE WOODWORKER [address] [place] [address] 03/28/2024 7:30 AM OIL DELIVERER - 03/28/2024 8:48 AM OIL DELIVERER Surgery [facility] [place] [address] Antwan Stone, DPM [address], [place] [address] REMOVAL OF HARDWARE LEFT FOOT 04/05/2024 8:30 AM OIL DELIVERER Office Visit [facility] THREE [facility], [facility] [address] [place] [address] Dominick Mccloud MD Three [facility]. [facility] [address] [place], [place] [address] Scheduled Procedures Name Priority Associated Diagnoses Date/Ti me REMOVAL PLATE SCREW OR PIN SCHED BY FAX 02/08/24 [facility] PHONE ASSESS 03/28/2024 7:30 AM OIL DELIVERER documented as of this encounter Visit Diagnoses Diagnosis Essential (primary) hypertension- Primary Unspecified essential hypertension Pure hypercholesterolemia Varicose veins of right lower extremity with complications Obstructive sleep apnea syndrome Obstructive sleep apnea (adult) (pediatric) Painful orthopaedic hardware (CMS/HCC)- Primary documented in this encounter Care Teams Telecommunication Systems Designer Relationship Specialty Start Date End Date Clara Stanley APNP [address] [place] [address] PCP - General NURSE PRACTITIONER 06/01/18 Dominick Mccloud MD Three [facility]. [facility] [address] [place], [place] [address] Taylor Splitter Operator CARDIOVASCULAR DISEASE 03/28/19 Alexis Lopez MD [address] [facility] [address] [place] [address] [place] [address] PULMONARY DISEASE 10/21/19 documented as of this encounter
--- OUTSIDE RECORDS SUMMARY | 2024-03-02 03:21 | XMS_ITS | Encounter Summary ---
Author Organization [facility] Address [address] [place] [address]. [place], [place] [address] [place] [address] Care Team Providers Care Mechanical Engineering Coop Name Role Phone Clara Stanley Primary Care Provider [phone] Dominick Mccloud MD Unavailable [phone] Alexis Lopez MD Unavailable [phone] Kip Del Rio MD Unavailable [phone] Reason for Referral * Surgical (Routine) - Closed Specialty Diagnoses / Procedures Referred By Contac t Referred To Contact Diagnoses Varicose veins of right lower extremity with pain Procedures Case request operating room: STAB PHLEBECTOMY Antwan Milton MD [facility]. [facility] [address] [place] [address] Phone: tel: fax: [place] [address] Phone: tel: Referral ID Status Reason Start Date Expiration Date Visits Re quested Visits Authorized [id number] Closed 10/31/2019 11/10/2020 1 1 Encounter Details Date Type Department Care Team (Late st Contact Info) Description 10/11/2019 Prep for Procedure [facility] at [facility], [address] [address] Antwan Milton MD Three [facility]. [facility] [address] [place] [address] Social History Tobacco Use Types Packs/Day Years [...] have Coronavirus / COVID-19? No / Unsure 09/26/2019 11:01 AM CDT documented as of this encounter Plan of Treatment Upcoming Encounters Date Type Department Care Team (Late st Contact Info) Description 03/28/2024 7:30 AM CONFERENCE ASSISTANT Hospital Encounter [facility] [address] Anwtan Stone, DPÁngel [address], [place] [address] 03/28/2024 7:30 AM CONFERENCE ASSISTANT Anesthesia [place] [address] Shanelle Avila, COFFEE MACHINE TECHNICIAN [address] [place] [address] 03/28/2024 7:30 AM CONFERENCE ASSISTANT - 03/28/2024 8:48 AM CONFERENCE ASSISTANT Surgery [facility] [place] [address] Antwan Stone DPM [address] [place] [address] REMOVAL OF HARDWARE LEFT FOOT 04/05/2024 8:30 AM CONFERENCE ASSISTANT Office Visit [facility], [facility] [address] [place], [place] [address] Dominick Mccloud MD [facility]. [facility] [address] [place] [address] Scheduled Orders Name Type Priority Associated Diagnoses Orde r Schedule Case request operating room: STAB PHLEBECTOMY Case Request Routine Varicose veins of right lower extremity with pain Once for 1 Occurrences starting 10/11/2019 until 10/11/2019 Scheduled Procedures Name Priority Associated Diagnoses Date/Ti me REMOVAL PLATE SCREW OR PIN SCHED BY FAX 02/08/24 [facility] PHONE ASSESS 03/28/2024 7:30 AM CONFERENCE ASSISTANT documented as of this encounter Visit Diagnoses Diagnosis Varicose veins of right lower extremity with pain- Primary Varicose veins of lower extremities with other complications Painful orthopaedic hardware (CMS/HCC)- Primary documented in this encounter Additional Health Concerns Infection Onset Date Last Indicated Resolved Time COVID-19 Rule Out 10/28/2019 10/28/2019 10/30/2019 8:53 AM CDT documented as of this encounter Care Teams Mechanical Engineering Coop Relationship Specialty Start Date End Date Clara Stanley APNP [address] [place] [address] PCP - General NURSE PRACTITIONER 06/01/18 Dominick Mccloud MD [facility]. [facility] [address] [place] [address] [place] Wire Wrapping Machine Operator CARDIOVASCULAR DISEASE 03/28/19 Alexis Lopez MD [address] [facility] [address] [address] PULMONARY DISEASE 10/21/19 Kip Del Rio MD [address] [facility] [address] [place] [address] MEDICAL ONCOLOGY 02/24/24 documented as of this encounter
--- OUTSIDE RECORDS SUMMARY | 2024-03-02 03:21 | XMS_ITS | Encounter Summary ---
Author Organization [facility] Address [address] [place] [address]. [place], [place] [address] [place] [address] Care Team Providers Care Wind Up Worker Name Role Phone Clara Stanley Primary Care Provider [phone] Dominick Mccloud MD Unavailable [phone] Alexis Lopez MD Unavailable [phone] Encounter Details Date Type Department Care Team (Latest Contact Info) Description 03/28/2020 Travel Social History Tobacco Use Types Packs/Day [...] COVID-19? No / Unsure 03/28/2020 11:13 AM MIDDLE SCHOOL COUNSELOR documented as of this encounter Plan of Treatment Upcoming Encounters Date Type Department Care Team (Late st Contact Info) Description 03/28/2024 7:30 AM MIDDLE SCHOOL COUNSELOR Hospital Encounter [facility] [place] [address] Antwan Stone, DIEGO [address], [place] [address] 03/28/2024 7:30 AM MIDDLE SCHOOL COUNSELOR Anesthesia [place] [address] Shanelle Avila, REGISTERED ROUTE ASSOCIATE [address] [place] [address] 03/28/2024 7:30 AM MIDDLE SCHOOL COUNSELOR - 03/28/2024 8:48 AM MIDDLE SCHOOL COUNSELOR Surgery [place] [address] Antwan Stone, DIEGO [address], [place] [address] REMOVAL OF HARDWARE LEFT FOOT 04/05/2024 8:30 AM MIDDLE SCHOOL COUNSELOR Office Visit [facility] THREE [facility], [facility] [address] [place] [address] Dominick Mccloud MD Three [facility]. [facility] [address] [place] [address] Scheduled Procedures Name Priority Associated Diagnoses Date/Ti me REMOVAL PLATE SCREW OR PIN SCHED BY FAX 02/08/24 [facility] PHONE ASSESS 03/28/2024 7:30 AM MIDDLE SCHOOL COUNSELOR documented as of this encounter Visit Diagnoses Not on filedocumented in this encounter Additional Health Concerns Assessment Noted Time PHQ-9 Depression Total Score: 4 03/28/19 21 1:42 PM MIDDLE SCHOOL COUNSELOR documented as of this encounter Care Teams Wind Up Worker Relationship Specialty Start Date End Date Clara Stanley APNP [address] [place] [address] PCP - General NURSE PRACTITIONER 06/01/18 Dominick Mccloud MD [facility] [address] [place] [address] [place] Cordage Sales Representative CARDIOVASCULAR DISEASE 03/28/19 Alexis Lopez MD [address] [facility] [address] [address] PULMONARY DISEASE 10/21/19 documented as of this encounter
--- OUTSIDE RECORDS SUMMARY | 2024-03-02 03:21 | XMS_ITS | Encounter Summary ---
Author Organization [facility] Address [address] [place] [address]. [place], [place] [address] [place] [address] Care Team Providers Care Privacy Attorney Name Role Phone Clara Stanley Primary Care Provider [phone] Dominick Mccloud MD Unavailable [phone] Alexis Lopez MD Unavailable [phone] Encounter Details Date Type Department Care Team (Latest Contact Info) Description 10/31/2019 Travel Social History Tobacco Use Types Packs/Day [...] st Contact Info) Description 03/28/2024 7:30 AM [facility] Hospital Encounter [facility] [place] [address] Antwan Stone DPM [address] [place], [place] [address] 03/28/2024 7:30 AM CAR REPAIRER APPRENTICE Anesthesia Event [facility] [place] [address] Shanelle Avila, LIFT ELECTRICIAN [address] [place] [address] 03/28/2024 7:30 AM CAR REPAIRER APPRENTICE - 03/28/2024 8:48 AM CAR REPAIRER APPRENTICE Surgery [facility] [place] [address] Antwan Stone DPM [address] [place] [address], [place] [address] REMOVAL OF HARDWARE LEFT FOOT 04/05/2024 8:30 AM CAR REPAIRER APPRENTICE Office Visit [facility] THREE [facility] [address] [place], [place] [address] Dominick Mccloud MD Three [facility]. [facility] [address] [place], [place] [address] Scheduled Procedures Name Priority Associated Diagnoses Date/Ti me REMOVAL PLATE SCREW OR PIN SCHED BY FAX 02/08/24 [facility] PHONE ASSESS 03/28/2024 7:30 AM CAR REPAIRER APPRENTICE documented as of this encounter Visit Diagnoses Not on filedocumented in this encounter Care Teams Privacy Attorney Relationship Specialty Start Date End Date Clara Stanley APNP [address] [place] [address] PCP - General NURSE PRACTITIONER 06/01/18 Dominick Mccloud MD [facility]. [facility] [address] [place] [address] eFly Dinking Machine Operator CARDIOVASCULAR DISEASE 03/28/19 Alexis Lopez MD [address] [facility] [address] [place] [address] PULMONARY DISEASE 10/21/19 documented as of this encounter
--- OUTSIDE RECORDS SUMMARY | 2024-03-02 03:21 | XMS_ITS | Encounter Summary ---
Author Organization [facility] Address [address] [place] [address]. [place], [place] [id number] [place] [address] Care Team Providers Care Crate Liner Name Role Phone Clara Stanley Primary Care Provider [phone] Dominick Mccloud MD Unavailable [phone] Alexis Lopez MD Unavailable [phone] Encounter Details Date Type Department Care Team (Late st Contact Info) Description 10/28/2019 10:15 AM CDT - 10/28/2019 11:59 PM T Hospital Encounter [facility] Laboratory [address] [place], [place] [id number] Antwan Milton MD Three [facility]. [facility] [address] [place], [place] [id number] Discharge Disposition: Home or Self Care (Routine [...] have Coronavirus / COVID-19? No / Unsure 10/20/2019 12:16 PM CDT documented as of this encounter Medications at Time of Discharge cetirizine (ZYRTEC) 10 MG tablet Take 1 tablet (10 mg total) by mouth daily. 5 Multiple Vitamins-Minerals (MULTIVITAMIN ADULT OR) Take 1 tablet by mouth daily. vitamin C 1000 MG tablet Take 1 tablet (1,000 mg total) by mouth daily. vitamin D3, cholecalciferol, 1.25 MG (09572 UT) capsule Take 1 capsule (50,000 Units [...] AT BEDTIME 90 tablet 3 0 07/19/19 sodium chloride 0.9 % solution Inject 50 mLs into the vein continuous. 500 mL 0 03/28/19 documented as of this encounter Plan of Treatment Upcoming Encounters Date Type Department Care Team (Late st Contact Info) Description 03/28/2024 7:30 AM CHUTE GREASER Hospital Encounter [facility] [place] [address] Antwan Stone, DIEGO [address], [place] [address] 03/28/2024 7:30 AM CHUTE GREASER Anesthesia [place] [address] Shanelle Avila, SOCIAL WORKER PALLIATIVE CARE [address] [place] [address] 03/28/2024 7:30 AM CHUTE GREASER - 03/28/2024 8:48 AM CHUTE GREASER [place] [address] Antwan cruz, DIEGO [address], [place] [address] REMOVAL OF HARDWARE LEFT FOOT 04/05/2024 8:30 AM CHUTE GREASER Office Visit [facility] [address] [place] [address] Dominick Mccloud MD Three [facility]. [facility] [address] [place] [address] Scheduled Procedures Name Priority Associated Diagnoses Date/Ti me REMOVAL PLATE SCREW OR PIN SCHED BY FAX 02/08/24 [facility] PHONE ASSESS 03/28/2024 7:30 AM CHUTE GREASER documented as of this encounter Procedures Procedure Name Priority Date/Time Associated Diagnosis Comments CORONAVIRUS (COVID 19) STAT 10/28/2019 10:05 AM CDT Pre-Op Exam documented in this encounter Results * PRE-SURGICAL/PRE-PROCEDURE CORONAVIRUS (COVID 19) (10/28/2019 10:05 AM CDT) CORONAVIRUS SARS COV 2 PCR (RESP) NOT DETECTED NOT DETECTED 10/30/2019 8:53 AM CDT [facility] Comment: A Not Detected (negative) test result for this test means that SARS- CoV-2 RNA was not present in the specimen above the limit of detection. A negative result does not rule out the possibility of COVID-19 and should not be used as the sole basis for treatment or patient management decisions. ??If COVID-19 is still suspected, based on exposure history together with other clinical findings, re-testing should be considered in consultation with public health authorities. Laboratory test results should always be considered in the context of clinical observations and epidemiological data in making a final diagnosis and patient management decisions. Please review the Fact Sheets and FDA authorized labeling available for health care providers and patients using the following websites: https://www.CleanBeeBaby.com/home/Covid-19/HCP/Quest[facility]/fact- sheet.html https://www.[employer].Intelligent Mobile Support/home/Covid-19/Patients/ Quest[employer]/fact-sheet.html This test has been authorized by the FDA under an Emergency Use Authorization (EUA) for use by authorized laboratories. Due to the current public health emergency, [facility] is receiving a high volume of samples from a wide variety of swabs and media for COVID-19 testing. In order to serve patients during this public health crisis, samples from appropriate clinical sources are being tested. Negative test results derived from specimens received in non-commercially manufactured viral collection and transport media, or in media and sample collection kits not yet authorized by FDA for COVID-19 testing should be cautiously evaluated and the patient potentially subjected to extra precautions such as additional clinical monitoring, including collection of an additional specimen. Methodology: ??Nucleic Acid Amplification Test (NAAT) includes PCR or TMA Additional information about COVID-19 can be found at the [facility] website: www.[employer].Intelligent Mobile Support/Covid19. Test performed at [facility] [address] [place], [place] ??[address] Director: ENRICO VALDEZ DO,MPH NASOPHARYNGEAL SWAB / Unknown 10/28/2019 10:05 AM CDT us Antwan Milton MD MICROBIOLOGY - GENERAL ORDERABLE S Final Result [facility] [id number] [place] [address], documented in this encounter Visit Diagnoses Diagnosis Pre-op exam Preoperative examination, unspecified Painful orthopaedic hardware (CMS/HCC)- Primary documented in this encounter Additional Health Concerns Infection Onset Date Last Indicated Resolved Time COVID-19 Rule Out 10/28/2019 10/28/2019 10/30/2019 8:53 AM CDT documented as of this encounter Care Teams Crate Liner Relationship Specialty Start Date End Date Clara Stanley APNP [address] [place] [address] PCP - General NURSE PRACTITIONER 06/01/18 Dominick Mccloud MD [facility] [address] [place] [address] [place] Video Operator CARDIOVASCULAR DISEASE 03/28/19 Alexis Lopez MD [address] [facility] [address] [place] [address] PULMONARY DISEASE 10/21/19 documented as of this encounter
--- OUTSIDE RECORDS SUMMARY | 2024-03-02 03:21 | XMS_ITS | Encounter Summary ---
Author Organization [facility] Address [address] [place] [address]. [place], [place] [id number] [place] [address] Care Team Providers Care Personal Development Mentor Name Role Phone Irwin Stanley Primary Care Provider [phone] Dominick Mccloud MD Unavailable [phone] Alexis Lopez MD Unavailable [phone] Reason for Visit * Auth/Cert Specialty Diagnoses / Procedures Referred By Erik [email or web address] Referred To Contact Diagnoses Varicose veins of right lower extremity with pain VARICOSE VEINS OF RIGHT LOWER EXTREMITY WITH PAIN Procedures RIGHT STAB PHLEBECTOMY Referral ID Status Reason Start Date Expiration Date Visits Re quested Visits Authorized [id number] 1 1 Encounter Details Date Type Department Care Team (Late st Contact Info) Description 10/31/2019 8:05 AM CDT - 10/31/2019 1:15 PM T Hospital Encounter [facility] [place] [address] Antwan Pineda MD Three [facility]. [facility] [address] [place] [address] Discharge Disposition: Home or Self Care (Routine [...] Sign Reading Time Taken Comments Blood Pressure 136/82 10/31/2019 1:05 PM CDT Pulse 71 10/31/2019 1:05 PM CDT Temperature 36.4 ??C (97.6 ??F) 10/31/2019 1:05 PM CD T Respiratory Rate 18 10/31/2019 1:05 PM CDT Oxygen Saturation 100% 10/31/2019 1:05 PM CDT Inhaled Oxygen Concentration - - Weight 146.6 kg (323 lb 3.1 oz) 10/31/2019 8:46 AM CDT Height 190.5 cm (6' 3 ) 10/31/2019 8:46 AM CDT Body Mass Index 40.4 10/31/2019 8:46 AM CDT documented in this encounter Discharge Instructions * Discharge Instructions* Deyanira Okeefe RN - 10/31/2019 12:49 PM CDT No [...] Care Everywhere. * Surgical Wound Discharge Instructions (Czech) * Hydrocodone and Acetaminophen, ADULT (Czech) * General Anesthesia Discharge Instructions (Czech) documented in this encounter Medications at Time [...] Doc Abstract vitamin D3, cholecalciferol, 1.25 MG (24740 UT) capsule Take 50,000 Units by mouth [...] expressed understanding wishes to proceed with s urgery. ANTWAN PINEDA MD documented in this encounter [...] 5 incisions were made during the procedure. #[id number] /NTS * OR PreOp - Joyce Glover [...] tolerance in past 6 months. Patient sees blood or blood bank technician Dr. Mccloud and previous cardiac testing copied. Patient scheduled for COVID testing 10/28/19 High risk LEONOR Patient sees liquor bridge operator Dr. Lopez with recent hx of lung [...] on file here it was done at [facility] Do you see a blood or blood bank technician? Who is it? Dr. Mccloud Telephone consent obtained from patient for COVID-19 testing. Patient agrees to comply with self-isolation as instructed until day of surgery. Patient expressed understanding. documented in this encounter Plan of Treatment Upcoming Encounters Date Type Department Care Team (Late st Contact Info) Description 03/28/2024 7:30 AM BURRER MACHINE Hospital Encounter [facility] [place] [address] Antwan Stone, DIEGO [address], [place] [address] 03/28/2024 7:30 AM BURRER MACHINE Anesthesia Event [place] [address] Shanelle Avila, TAILOR WOMEN'S GARMENT ALTERATION [address] [place] [address] 03/28/2024 7:30 AM BURRER MACHINE - 03/28/2024 8:48 AM BURRER MACHINE Surgery [place] [address] Antwan Stone, DIEGO [address], [place] [address] REMOVAL OF HARDWARE LEFT FOOT 04/05/2024 8:30 AM BURRER MACHINE Office Visit [facility]O'F [facility]on THREE [facility], [facility] [address] [place] [address] Dominick Mccloud MD Three [facility]. [facility] [address] [place] [address] Scheduled Procedures Name Priority Associated Diagnoses Date/Ti me REMOVAL PLATE SCREW OR PIN SCHED BY FAX 02/08/24 KAYLIE PHONE ASSESS 03/28/2024 7:30 AM BURRER MACHINE documented as of this encounter Procedures Procedure [...] - 99 MG/DL 10/31/2019 10:14 AM CDT [facility] BUN 16 7 - 18 MG/DL 10/31/2019 10:14 AM CDT [facility] CREATININE S/P/B 0.74 0.7 - 1.3 MG/DL 10/31/2019 10:14 AM CDT [facility] SODIUM S/P/B 137 136 - 145 MMOL/L 10/31/2019 10:14 AM CDT [facility] POTASSIUM S/P/B 4.9 3.5 - 5.1 MMOL/L 10/31/2019 10:14 AM CDT [facility] Comment:SLIGHT HEMOLYSIS, RE SULT MAY BE AFFECTED. CHLORIDE S/P/B 112(H) 100 - 108 MMOL/L 10/31/2019 10:14 AM CDT [facility] CO2 19.8(L) 21 - 32 MMOL/L 10/31/2019 10:14 AM CDT [facility] CALCIUM S/P/B 9.0 8.5 - 10.1 MG/DL 10/31/2019 10:14 AM T [facility] BILIRUBIN TOTAL S/P/B 0.6 0.2 - 1.2 MG/DL 10/31/2019 10:14 AM [facility] Comment: THIS ASSAY IS NOT RECOMMENDED FOR PATIENTS UNDERGOING TREATMENT WITH ELTROMBOPAG DUE TO THE POTENTIAL FOR FALSELY ELEVATED RESULTS. TOTAL PROTEIN S/P/B 7.6 6.4 - 8.2 G/DL 10/31/2019 10:14 AM T [facility] ALBUMIN S/P/B 3.4 3.4 - 5.0 G/DL 10/31/2019 10:14 AM [facility] AST 40(H) 15 - 37 U/L 10/31/2019 10:14 AM [facility] Comment:SLIGHT HEMOLYSIS, RE SULT MAY BE AFFECTED. ALT 24 16 - 60 U/L 10/31/2019 10:14 AM T [facility] ALKALINE PHOSPHATASE S/P/B 118 50 - 136 U/L 10/31/2019 10:14 AM [facility] ANION GAP 5.2 5 - 15 MMOL/L 10/31/2019 10:14 AM [facility] BUN CREATININE RATIO 21.7 6 - 26 10/31/2019 10:14 AM [facility] A/G RATIO 0.8(L) 1.0 - 2.0 RATIO 10/31/2019 10:14 AM [facility] EGFR NON-AFR. AMER. >90 >90 ML/MIN/1.7 3 M2 10/31/2019 10:14 AM [facility] EGFR AFR. AMER. >90 >90 ML/MIN/1.7 3 M2 10/31/2019 10:14 AM [facility] Comment: NOTE: eGFR is not calculated for patients <18 years of age. This is an estimated GFR (CKD EPI) and should not be used for calculating drug doses. 10/31/2019 9:20 AM CDT Antwan Pineda MD LABORATORY Final Result [facility] [address] [place] [address], * (ABNORMAL) CBC W/DIFF AUTOMATED (10/31/2019 9:20 AM CDT) Pathologist [facility] WBC 9.3 4.5 - 11.0 x10'3/uL 10/31/2019 9:49 AM CDT [facility] RBC 4.97 4.70 - 6.10 x10'6/uL 10/31/2019 9:49 AM CDT [facility] HGB 13.7(L) 14.0 - 18.0 G/DL 10/31/2019 9:49 AM CDT [facility] HCT 42.4(L) 43.0 - 54.0 % 10/31/2019 9:49 AM CDT [facility] MCV 85.3 80.0 - 94.0 FL 10/31/2019 9:49 AM CDT [facility] MCH 27.6 27.0 - 31.0 PG 10/31/2019 9:49 AM CDT [facility] MCHC 32.3 32.0 - 36.0 G/DL 10/31/2019 9:49 AM CDT [facility] RDW 15.9(H) 11.5 - 14.5 % 10/31/2019 9:49 AM CDT [facility] PLT 243 130 - 400 x10'3/uL 10/31/2019 9:49 AM CDT [facility] MPV 11.9 9.3 - 12.2 FL 10/31/2019 9:49 AM CDT [facility] DIFFERENTIAL TYPE AUTOMATED DIFFERENTIAL 10/31/2019 9:49 AM CDT [facility] NEUTROPHILS % 73.1 % 10/31/2019 9:49 AM CDT [facility] LYMPHOCYTES % 13.3 % 10/31/2019 9:49 AM CDT [facility] MONOCYTES % 9.4 % 10/31/2019 9:49 AM CDT [facility] EOSINOPHILS 3.1 % 10/31/2019 9:49 AM CDT [facility] BASOPHILS 0.5 % 10/31/2019 9:49 AM CDT [facility] IMMATURE GRANS % 0.6 % 10/31/19 9:49 AM T [facility] ABS. NEUTROPHILS TOTAL 6.75 1.80 - 7.70 x10'3/uL 10/31/2019 9:49 AM CDT [facility] ABS. LYMPHOCYTES 1.23 1.00 - 4.80 x10'3/uL 10/31/2019 9:49 AM T [facility] ABS. MONOCYTES 0.87(H) 0.30 - 0.82 x10'3/uL 10/31/2019 9:49 AM T [facility] ABS. EOSINOPHILS 0.29 0.04 - 0.54 x10'3/uL 10/31/2019 9:49 AM CDT [facility] ABS. BASOPHILS 0.05 0.01 - 0.08 x10'3/uL 10/31/2019 9:49 AM T [facility] ABS. IMMATURE GRANULOCYTES 0.06 0.00 - 0.49 x10'3/uL 10/31/2019 9:49 AM T [facility] 10/31/2019 9:20 AM CDT us Antwan Pineda MD LABORATORY Final Result [facility] [address] [facility] [place] [address], * Pathology (10/31/2019 12:00 AM CDT) COPATH REPORT ? [facility] ? [address] [facility] [address] ? [place] ??[address] ? [id number] ? Department of Pathology ? Pathology Report ? SURGICAL FINAL REPORT Patient Name: MP KULKARNI ?? : 1965 (Age: 54) ? Location: [facility] Gender: M ?Collected Date: 10/31/2019 Med Rec #: [id number] ?Date Received: 10/31/2019 Date Reported: 11/01/2019 Provider: ANTWAN PINEDA MD ?IRWIN ISABELNP Specimen(s) Vein, varicose Final Pathologic Diagnosis VEINS, [...] is entirely submitted intact in one cassette. :gabriella Billing Fee Code(s): 35465 [facility] Tissue specimen (specimen) (OTHER (type in comments)) 10/31/2019 11:21 AM CDT us Antwan Pineda MD PATHOLOGY/CYTOLOGY ORDERABLES Fi nal Result [facility] [address] [place] [address], documented in this encounter Visit Diagnoses Diagnosis [...] Action Action Date Dose Rate Site famotidine (PEPCID) injection 20 mg 20 mg, Intravenous, Once, 1 dose, On Thu10/31/19 at 1015, On admission IV Push over 2 minutes, Pre-Op Given 10/31/2019 10:30 AM CDT 20 mg HYDROcodone-acetaminophen (NORCO) 5-325 MG tablet 1 tablet 1 [...] MD) documented in this encounter Care Teams Personal Development Mentor Relationship Specialty Start Date End Date Irwin Stanley APNP [address] [place] [address] PCP - General NURSE PRACTITIONER 06/01/18 Dominick Mccloud MD [address] [address] [place] Community Development Aide CARDIOVASCULAR DISEASE 03/28/19 Alexis Lopez MD [address] [facility] [address] [address] PULMONARY DISEASE 10/21/19 documented as of this encounter
--- OUTSIDE RECORDS SUMMARY | 2024-03-02 03:21 | XMS_ITS | Encounter Summary ---
Author Organization [facility] Address [address] [place] [address]. [place], [place] [address] [place] [address] Care Team Providers Care Science Intern Name Role Phone Clara Stanley Primary Care Provider [phone] Dominick Mccloud MD Unavailable [phone] Encounter Details Date Type Department Care Team (Late st Contact Info) Description 10/20/2019 [facility] [address] Scanned, Documents Social History Tobacco Use Types [...] Encounters Date Type Department Care Team (Late Contact Info) Description 03/28/2024 7:30 AM [facility] Hospital Encounter [facility] [place] [address] Antwan Stone DPM [address], [place] [address] 03/28/2024 7:30 AM MOLDER VACUUM Anesthesia Event [facility] [place] [address] Shanelle Avila, PRESSURE VESSEL INSPECTOR [address] [place] [address] 03/28/2024 7:30 AM MOLDER VACUUM - 03/28/2024 8:48 AM MOLDER VACUUM Surgery [facility] [place] [address] Antwan Stone DPM [address] [place] [address] REMOVAL OF HARDWARE LEFT FOOT 04/05/2024 8:30 AM MOLDER VACUUM Office Visit Darren Chaudhari-O'F allon THREE [facility] [address] [place] [address] Dominick Mccloud MD Three [facility]. [facility] [address] [place] [address] Scheduled Procedures Name Priority Associated Diagnoses Date/Ti me REMOVAL PLATE SCREW OR PIN SCHED BY FAX 02/08/24 [facility] PHONE ASSESS 03/28/2024 7:30 AM MOLDER VACUUM documented as of this encounter Visit Diagnoses Not on filedocumented in this encounter Care Teams Science Intern Relationship Specialty Start Date End Date Clara Stanley APNP [address] [place] [address] PCP - General NURSE PRACTITIONER 06/01/18 Dominick Mccloud MD Three [facility]. [facility] [address] [place] [address] [place] Director Of Annual Giving CARDIOVASCULAR DISEASE 03/28/19 documented as of this encounter
--- OUTSIDE RECORDS SUMMARY | 2024-03-02 03:21 | XMS_ITS | Encounter Summary ---
Author Organization [facility] Address [address] [place] [address]. [place] [address] [place] [address] Care Team Providers Care Rail Car Repair Carman Name Role Phone Clara Stanley Primary Care Provider [phone] Dominick Mccloud MD Unavailable [phone] Alexis Lopez MD Unavailable [phone] Reason for Visit * Reason Comments Follow Up Encounter Details Date Type Department Care Team (Late st Contact Info) Description 12/01/2019 12:45 PM CDT Office Visit [facility] at [facility], [facility] [address] [place] [address] Antwan Milton MD [facility]. [facility] [address] [place], [place] [id number] Follow Up Social History Tobacco Use Types Packs/Day Years [...] PM CDT documented as of this encounter Last Filed Vital Signs Vital Sign Reading Time Taken Comments Blood Pressure 118/80 12/01/2019 1:10 PM CDT Pulse 97 12/01/2019 1:10 PM CDT Temperature - - Respiratory Rate - - Oxygen Saturation - - Inhaled Oxygen Concentration - - Weight 148.3 kg (327 lb) 12/01/2019 1:10 PM CDT Height 190.5 cm (6' 3 ) 12/01/2019 1:10 PM CDT Body Mass Index 40.87 12/01/2019 1:10 PM CDT documented in this encounter Patient Instructions * Patient Instructions* Ese Hanson MA - 12/01/2019 12:45 PM CDT Images from the original note were not included. Patient Education Patient Education Varicose Veins and Other Vein Disease in the Legs The Basics Written by the doctors and editors at [facility] What is vein disease???--??Vein disease is a condition that can affect the veins in the legs. It can cause leg pain, varicose veins, swollen legs, or open sores. Varicose veins are swollen and twisted veins. Vein disease happens when the veins in the legs do not work the right way. Normally, the veins in the legs carry blood from the legs back to the heart. The veins have valves inside them to help keep blood moving in only one direction (toward the heart). The valves open to let blood flow to the heart, and close to keep it from flowing back down the leg. Vein disease can happen when the valves are damaged or do not work well. This causes blood to collect in the legs. Blood is especially likely tocollect in the legs when a person sits or stands for a long time without walking. What conditions can cause vein disease???--??Vein disease can be caused by: ?? A blood clot in a leg vein ?? Leg injury ?? Being , especially more than once - This causes a change in hormone levels that can weaken vein strange. ?? Weight gain Vein disease can also run in families. What are the symptoms of vein disease???--??People with vein disease can have symptoms that include: ?? Leg pain, or the leg feeling tired or heavy, especially at the end of the day. ?? Swollen veins - Spider veins are small leg veins that are swollen (picture 1). Varicose veins are larger leg veins that are swollen and twisted (picture 2). ?? Swelling in the lower legs or ankles (figure 1) - People can have swelling at the end of the dayor all the time. ?? Skin color changes - The skin can turn red or red-brown. Skin color changes often happen first around the ankle. ?? Open sores, also called venous ulcers - These are usually at the ankle and can be painful and ooze. Is there a test for vein disease???--??Yes. Your doctor or nurse will do an exam to look at your legs. He or she might also do a test called an ultrasound. An ultrasound can check how well the valvesin the legs work. It can also see if any of the veins in the legs are blocked. What can I do to reduce my symptoms???--??To reduce swelling, you can: ?? Walk around, and try not to sit or marble machine tender one place for a long time ?? Raise your legs up 3 or 4 times a day, for 30 minutes each time ?? Do exercises to point your toes and feet down and up a few times each day To treat dry or itchy skin, you can: ?? Wash your legs each day with a gentle cleanser. Do not use regular soap, which can make skin more dry. ?? Use an unscented moisturizing cream or ointment while your skin is still damp. Petroleum jelly works well. Ask your doctor or nurse before using any other type of cream or ointment, because some can cause a rash. If your skin problems are severe, your doctor or nurse might suggest special ointment, medicine, orbandages. How is vein disease treated???--??Doctors can use different treatments to treat symptoms and reduceswelling. These can include: ?? Special socks, bandages, or devices: ? Compression stockings are special socks that fit tightly over the ankle and leg. If your doctoror nurse recommends that you wear them, he or she will tell you which type to wear and how to put them on (figure 2 and table 1). ? Compression bandages are layers of bandages that wrap around a person's leg. ? A compression pump is a device that fits around the leg and squeezes the leg every few minutes. ?? Special coverings that are put on an open sore to help it heal ?? Medicines - Doctors can use different types of medicines to treat different symptoms. For example, people who cannot use compression stockings or bandages might be able to try medicines that help the veins work better. People with a skin infection might need antibiotics. People with itchy skin might need a prescription cream or ointment. ?? Procedures - Doctors can do procedures if other treatments do not work. A doctor can remove or destroy damaged veins so they can no longer fill with blood. All topics are updated as new evidence becomes available and our peer review process is complete. This topic retrieved from [employer] on: Sep 08, 2019. Topic 68212 Version 8.0 Release: 28.3.2 - C28.250 ?2019??[employer] and/or its affiliates.??All rights reserved. picture 1: Telangiectasias (spider veins) on the lower leg This is a picture of telangiectasias (spider veins), which are small veins that are swollen. These are also called hyphen webs or thread veins. Graphic 94955 Version 3.0 picture 2: Severe varicose veins This is a picture of varicose veins, which are swollen and twisted veins in the legs. Graphic 44184 Version 2.0 figure 1: Pitting edema To check for swelling, a doctor or nurse can press on the skin and then remove his or her finger. If the indent stays there, the person has swelling. Doctors call this pitting edema. Graphic 64181 Version 10.0 figure 2: Enip-rhpljp-beo method to put on compression stockings The mgik-esucti-ymf method to put on compression stockings is as follows: 1. Turn the leg part of the stocking inside-out down to the heel (as shown in A). 2. Put your foot into the stocking, hold onto the folded edge, and pull the stocking onto your footand over the heel (as shown in B). 3. Gently work the stocking up your leg by turning it right-side out (as shown in C). Graphic 89452 Version 7.0 table 1: Tips for using compression stockings Here are tips for using compression stockings: ??? Wash new compression stockings before wearing them to reduce their stiffness and to make them easier to put on. ??? Put on stockings as early as possible in the morning after you bandage any sores you have because swelling is less in the morning. If you do not put the stockings on early, raise your legs for 20to 30 minutes before putting the stockings on. ??? When putting on stockings, sit on a chair with firm back support (not on the bed). ??? Knee-high stockings can be put on using the palr-xkpujy-wzb method. The kcie-vccbru-hnd method to put on compression stockings is as follows: 1. Turn the leg part of the stocking inside-out down to the heel. 2. Put your foot into the stocking, hold onto the folded edge, and pull the stocking onto your footand over the heel. 3. Gently work the stocking up your leg by turning it right-side out. Some people find it helpful to wear rubber gloves to put their stockings on. This can make it easier to slide the stockings up the legs. ??? Heavy compression stockings may go on more easily if light silk pantyhose are worn under the compression stockings, or if you first put powder on your legs. ??? Skin moisturizers and treatments that are used to treat open sores can make the stockings dirtyand wear them out. Wash the stockings each day after wearing them if possible. Stockings can be washed in cold water by hand. You can also wash them with cold water and a small amount of mild detergent in a washing machine. Hang the stockings up to dry, and do not dry them in a machine. Buying at least two pairs of stockings at a time will let you wear one pair while the other pair is drying. If you have an allergy to rubber (latex), you can buy compression stockings without elastic. If you are not able to pull on your stockings, talk with your doctor or nurse. There are different stockings you can use or devices that can help you put on stockings. Graphic 54556 Version 5.0 Consumer Information Use and Disclaimer This information [...] that is right for you.The use of [employer] content is governed by the [employer] Terms of Use. ??2020 [employer]. All rights reserved. Copyright ?2020??[employer] and/or its affiliates.??All rights reserved. documented in this encounter Progress Notes * Antwan Milton MD - 12/01/2019 12:45 PM CDT Reason for Visit: Surgical follow-up History of Present Illness: This is a 54-year-old male status post phlebectomy of symptomatic vein segments of the right lower extremity. He reports no redness or drainage from the incision sites. Hereports minimal discomfort. Recommendations and Plan: The patient is recovered well from surgery. I recommended he continue compression stocking use to prevent recurrent venous disease. Follow-up as needed. Medications: Current Outpatient Medications: ??? acetaZOLAMIDE ER [...] ), Disp: 270 capsule, Rfl: 2 ??? HYDROcodone-acetaminophen 5-325 MG tablet, Take 1 tablet by mouth every 6 (six) hours as neededfor Pain., Disp: , Rfl: ??? LORazepam 0.5 MG tablet, Take 1 tablet (0.5 mg total) by mouth every 8 (eight) hours as needed for Anxiety., Disp: 60 tablet, Rfl: 0 ??? Multiple Vitamins-Minerals (MULTIVITAMIN ADULT OR), , Disp: , Rfl: ??? PRAVASTATIN 20 MG tablet, TAKE 1 TABLET BY MOUTH EVERY NIGHT AT BEDTIME, Disp: 90 tablet, Rfl: 3 ??? sodium chloride 0.9 % solution, Inject 50 mLs into the vein continuous., Disp: 500 mL, Rfl: 0 ??? vitamin C 1000 MG tablet, Take 1,000 mg by mouth daily., Disp: , Rfl: ??? vitamin D3, cholecalciferol, 1.25 MG (39148 UT) capsule, Take 50,000 Units by mouth [...] Father Alive, age 83y Review of Systems All other systems reviewed and are negative. Vitals: 12/01/19 1310 BP: 118/80 Pulse: 97 Weight: (!) 148.3 kg (327 lb) Height: 6' 3 (1.905 m) Body mass index is 40.87 kg/m??. Physical Exam Constitutional: HENT: Eyes: Neck: Pulmonary: Abdomen: Neurological: Skin: Incisions clean, dry, intact. Musculoskeletal: Cardiovascular: Rate: PMI: Pulses: Edema left: 0. , Heart Sounds: Cardiovascular Comments: Diagnoses/Impression: 1. Varicose veins of right lower extremity with complications Referring Provider: ZEB Nunn PCP: ZEB Nunn documented in this encounter Plan of Treatment Upcoming Encounters Date Type Department Care Team (Late st Contact Info) Description 03/28/2024 7:30 AM [facility] Hospital Encounter [facility] [place] [address] Antwan Stone DPM [address] [place] [address] 03/28/2024 7:30 AM [facility] Anesthesia Event [place] [address] Shanelle Avila, PSYCHIATRIC AIDE [address] [place] [address] 03/28/2024 7:30 AM CLOTH EDGE SINGER - 03/28/2024 8:48 AM [facility] Surgery [place] [address] Antwan Stone DPM [address] [place] [address] REMOVAL OF HARDWARE LEFT FOOT 04/05/2024 8:30 AM CLOTH EDGE SINGER Office Visit [facility], [facility] [address] [place] [address] Dominick Mclcoud MD [facility]. [facility] [address] [place] [address] Scheduled Procedures Name Priority Associated Diagnoses Date/Ti me REMOVAL PLATE SCREW OR PIN SCHED BY FAX 02/08/24 [facility] PHONE ASSESS 03/28/2024 7:30 AM CLOTH EDGE SINGER documented as of this encounter Visit Diagnoses Diagnosis Varicose veins of right lower extremity with complications- Primary Painful orthopaedic hardware (CMS/HCC)- Primary documented in this encounter Care Teams Rail Car Repair Carman Relationship Specialty Start Date End Date Clara Stanley APNP [address] [place] [address] PCP - General NURSE PRACTITIONER 06/01/18 Dominick Mccloud MD [facility]. [facility] [address] [place] [address] Fely Monogram Maker CARDIOVASCULAR DISEASE 03/28/19 Alexis Lopez MD [address] [facility] [address] [address] PULMONARY DISEASE 10/21/19 documented as of this encounter
--- OUTSIDE RECORDS SUMMARY | 2024-03-02 03:21 | XMS_ITS | Encounter Summary ---
Author Organization [facility] Address [address] [place] [address]. [place], [place] [address] [place] [address] Care Team Providers Care Biomaterials Engineer Name Role Phone Clara Stanley Primary Care Provider [phone] Dominick Mccloud MD Unavailable [phone] Alexis Lopez MD Unavailable [phone] Encounter Details Date Type Department Care Team (Latest Contact Info) Description 11/07/2019 Travel Social History Tobacco Use Types Packs/Day [...] Contact Info) Description 03/28/2024 7:30 AM [facility] Hospital Encounter [facility] [place] [address] Antwan Stone DPM [address], [place] [address] 03/28/2024 7:30 AM BASEBALL INSPECTOR AND REPAIRER Anesthesia Event [facility] [place] [address] Shanelle Avila, STARS COORDINATOR [address] [place] [address] 03/28/2024 7:30 AM BASEBALL INSPECTOR AND REPAIRER - 03/28/2024 8:48 AM BASEBALL INSPECTOR AND REPAIRER Surgery [facility] [place] [address] Antwan Stone DPM [address], [place] [address] REMOVAL OF HARDWARE LEFT FOOT 04/05/2024 8:30 AM BASEBALL INSPECTOR AND REPAIRER Office Visit [facility] [address] [place], [place] [address] Dominick Mccloud MD Three [facility]. [facility] [address] [place], [place] [address] Scheduled Procedures Name Priority Associated Diagnoses Date/Ti me REMOVAL PLATE SCREW OR PIN SCHED BY FAX 02/08/24 [facility] PHONE ASSESS 03/28/2024 7:30 AM BASEBALL INSPECTOR AND REPAIRER documented as of this encounter Visit Diagnoses Not on filedocumented in this encounter Care Teams Biomaterials Engineer Relationship Specialty Start Date End Date Clara Stanley APNP [address] [place] [address] PCP - General NURSE PRACTITIONER 06/01/18 Dominick Mccloud MD [facility]. [facility] [address] [place] [address] Fely Medical Biller CARDIOVASCULAR DISEASE 03/28/19 Alexis Lopez MD [address] [facility] [address] [place] [address] PULMONARY DISEASE 10/21/19 documented as of this encounter
--- OUTSIDE RECORDS SUMMARY | 2024-03-02 03:21 | XMS_ITS | Encounter Summary ---
Author Organization [facility] Address [address] [place] [address]. [place], [place] [address] [place] [address] Care Team Providers Care Community Development Worker Name Role Phone Clara Stanley Primary Care Provider [phone] Dominick Mccloud MD Unavailable [phone] Encounter Details Date Type Department Care Team (Latest Contact Info) Description 10/20/2019 Travel Social History Tobacco Use Types Packs/Day [...] st Contact Info) Description 03/28/2024 7:30 AM [facility] Hospital Encounter [facility] [place] [address] Antwan Stone DPM [address], [place] [address] 03/28/2024 7:30 AM STEREOTYPER Anesthesia Event [facility] [place] [address] Shanelle Avila, LOCKSTITCH FRONT EDGE TAPE SEWER [address] [place] [address] 03/28/2024 7:30 AM STEREOTYPER - 03/28/2024 8:48 AM STEREOTYPER Surgery [place] [address] Antwan Stone, DPÁngel [address], [place], [place] [address] REMOVAL OF HARDWARE LEFT FOOT 04/05/2024 8:30 AM STEREOTYPER Office Visit [facility], [facility] [address] [place], [place] [address] Dominick Mccloud MD Three [facility]. [facility] [address] [place], [place] [address] Scheduled Procedures Name Priority Associated Diagnoses Date/Ti me REMOVAL PLATE SCREW OR PIN SCHED BY FAX 02/08/24 [facility] PHONE ASSESS 03/28/2024 7:30 AM STEREOTYPER documented as of this encounter Visit Diagnoses Not on filedocumented in this encounter Care Teams Community Development Worker Relationship Specialty Start Date End Date Clara Stanley APNP [address] [place] [address] PCP - General NURSE PRACTITIONER 06/01/18 Dominick Mccloud MD Three [facility]. [facility] [address] [place], [place] [id number] Fely Electric Deicer Assembler CARDIOVASCULAR DISEASE 03/28/19 documented as of this encounter
--- OUTSIDE RECORDS SUMMARY | 2024-03-02 03:21 | XMS_ITS | Encounter Summary ---
Author Organization [facility] Address [address] [place] [address]. [place] [address] [place] [address] Care Team Providers Care Rumper Name Role Phone Clara Stanley Primary Care Provider [phone] Dominick Mccloud MD Unavailable [phone] Alexis Lopez MD Unavailable [phone] Reason for Visit * Auth/Cert Specialty Diagnoses / Procedures Referred By Erik [email or web address] Referred To Contact Diagnoses Varicose veins of right lower extremity with pain VARICOSE VEINS OF RIGHT LOWER EXTREMITY WITH PAIN Procedures RIGHT STAB PHLEBECTOMY Referral ID Status Reason Start Date Expiration Date Visits Re quested Visits Authorized [id number] 1 1 Encounter Details Date Type Department Care Team (Late st Contact Info) Description 10/31/2019 10:42 AM CDT Anesthesia Event [facility] [place] [address] Precious Abbott MD [address] [facility] [address] Greta Marcum FNP 1 [place] [address] Anesthesia Record Procedure Summary Procedure Name Responsible Anesthesiologist Anesthesia Start Time Anesthesia Stop Time RIGHT STAB PHLEBECTOMY (Right: Leg Lower) Precious Abbott MD 10/31/19 1042 10/31/19 1142 Events Date Time Event Comment 10/31/2019 0911 AN PUBLIC HEALTH PROFESSOR Prepped 1031 1031 AN Anesthesia Prepped 1042 An Start Data 1042 An Start Patient ID and consent checked and patient reassessed. 1048 Preoxygenation 1052 An Induction 1054 An Intubation 1055 Anesthesia Ready 1128 An Emergence 1132 An Extubation 1132 Face Mask Applied 1142 an stop data 1142 Post Anesthetic Care Handoff I completed my handoff to the receiving nurse during which we: 1. Identified the patient 2. Identified the responsible provider 3. Reviewed the pertinent medical history 4. Discussed the surgical course 5. Reviewed intra-op anesthesia management and issues during anesthesia 6. Set expectations for post-procedure period 7. Allowed opportunity for questions and acknowledgement of understanding. 1142 An Stop Meds Name Total midazolam 2 mg/2 mL injection 2 mg fentaNYL (SUBLIMAZE) 100 mcg/2 mL inject ion 100 mcg lidocaine (PF) (XYLOCAINE) 2% injection 60 mg propofol (DIPRIVAN) 200 mg/20 mL injecti on 200 mg succinylcholine (ANECTINE) 20 mg/mL inje ction 140 mg ondansetron (ZOFRAN) 4 mg/2 mL injection 4 mg ceFAZolin (ANCEF) 3 g in sodium chloride 0.9 % 100 mL IVPB 3 g lactated ringers infusion 700 mL * Agents Name O2 N2O Air Inspired Sevoflurane Inspired Isoflurane Sevoflurane Isoflurane Ancillary O2 * Blood No blood administrations on file. Lines, Drains, and Airways Type Details Placement Removal Peripheral IV Placement Date: 10/14 10/02; Placement Time: 0920; Placed Outside of This Facility?: No; Size: 20 G; Orientation: Left; Location: Wrist; Site Prep: Chlorhexidine; Insertion attempts: 3 (2 attempts by other RN and 1 by this RN); Ultrasound-guided Placement?: No; Patient Tolerance: Tolerated well; Removal Date: 10/31/19; Removal Time: 1306; Removal Reason: Patient Discharged 10/31/19 0920 by Tameka Forde RN 10/31/19 1306 by Deyanira Okeefe RN ETT Placement Date: 10/14 10/02; Placement Time: 1054; Placed Outside of This Facility?:No; Size (mm) : 8; Endotracheal: Oral, Stylet used; Blade Type: MAC 4; Placement Method: Direct Laryngoscopy (blade type in comment); View Grade: 1; Viewable Anatomy: Epiglottis, Arytenoid, Vocal cords; Insertion Attempts: 1; Placement Verified By: Capnography, Auscultation, Chest Rise; Placed By: ALDO; Extubation Assessment: Suctioned, Alert, Tolerated well, Patient spontaneously breathing, Deep breathes w/equal chest movements, Able to swallow, Atraumatic; Removal Date: 10/31/19; Removal Time: 1132; Removal Person: PUBLIC HEALTH PROFESSOR; Removal Reason: End of Case 10/31/19 1054 by Donovan Jj CRNA 10/31/19 1132 by Donovan Jj CRNA Surgical/Incision 10/31/19; 1124; Surg ical Wound; Leg; Right; 3 STAB SITES, DERMABOND, 4X4S, KERLIX, URBAN WRAP ; 10/31/19 (discharged home); 1310 10/31/19 1124 by Azalea Leyva RN 10/31/19 1310 by Deyanira Okeefe RN documented in this encounter Social History Tobacco [...] AM CDT documented as of this encounter OR Notes * Anesthesia Postprocedure Evaluation - Precious Abbott MD - 10/31/2019 1:15 PM CDT Anesthesia Post-op Note Kwaku Kulkarni Procedure(s): RIGHT STAB PHLEBECTOMY (Right Leg Lower) Anesthesia type: general Vitals: 10/31/19 1305 BP: 136/82 Vitals: 10/31/19 1305 Pulse: 71 Vitals: 10/31/19 1305 Resp: 18 Vitals: 10/31/19 1305 Temp: 36.4 ??C Vitals: 10/31/19 1305 SpO2: 100% Patient Location: Phase II/Outpatient Level of Consciousness: awake, alert and oriented Pain Management: adequate analgesia Airway Patency: patent Respiratory Status: spontaneous ventilation, nonlabored ventilation and room air Cardiovascular Status: hemodynamically stable Post-Op Nausea: none Postoperative Hydration: euvolemic Complications: no anesthesia complication * Anesthesia Postprocedure Evaluation - Precious Abbott MD - 10/31/2019 12:20 PM CDT Anesthesia Post-op Note Kwaku Kulkarni Procedure(s): RIGHT STAB PHLEBECTOMY (Right Leg Lower) Anesthesia type: general Vitals: 10/31/19 1215 BP: 142/90 Vitals: 10/31/19 1215 Pulse: 69 Vitals: 10/31/19 1215 Resp: 18 Vitals: 10/31/19 1215 Temp: 36.8 ??C Vitals: 10/31/19 1215 SpO2: 97% Patient Location: PACU Level of Consciousness: awake, alert and oriented Pain Management: adequate analgesia Airway Patency: patent Respiratory Status: spontaneous ventilation, unassisted and nonlabored ventilation Cardiovascular Status: hemodynamically stable Post-Op Nausea: none Postoperative Hydration: euvolemic Complications: no anesthesia complication Comments: Patient evaluated prior to discharge from PACU. * Anesthesia Preprocedure Evaluation - Precious Abbott MD - 10/31/2019 9:57 AM CDT Anesthesia ROS/MED History Reviewed: Patient summary , ECG, Family history anesthesia, Anesthesia history , Medications , Labs , Unchecked boxes are not applicable Pre-Anesthetic State: alert, awake and responds appropriately no history of anesthetic complications Pulmonary (+) asthma(-) smoker Cardiovascular (+) hypertension, hyperlipidemia Neuro/Psych (+) depression(-) no seizures Comments: Idiopathic intracranial hypertension GI/Hepatic/Renal (+) GERD, (well controlled)(-) liver disease, renal disease Endo/Other (+) obese, (Morbid) (-) diabetes, hypothyroidism GENERAL COMMENTS No Known Allergies Past Medical History: 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 Asthma 12/12/2014: Depression with anxiety GERD (gastroesophageal reflux disease) 02/21/2015: Hyperlipidemia 01/15/2017: Hypertension, benign IIH (idiopathic intracranial hypertension) 02/21/2015: Morbid obesity (CMS/HCC) Non-small cell carcinoma of lung (CMS/HCC) Comment: s/p right lobectomy Obesity Varicose vein of leg Wears glasses Comment: contacts Past Surgical History: APPENDECTOMY BRONCHOSCOPY COLONOSCOPY 03/28/2019: LUMBAR PUNCTURE 05/26/2019: REMOVAL OF LUNG,LOBECTOMY; Right Comment: partial lower lobectomy TONSILLECTOMY Physical Evaluation Airway Mallampati: II TM Distance: >3 FB Neck ROM: normal Dental No notable dental history Pulmonary Pulmonary exam normal Breath sounds clear to auscultation Cardiovascular Rhythm: regular Rate: normal Cardiovascular exam normal Other findings: Blood pressure 140/80, pulse 77, temperature 36.8 ??C, temperature source Oral, resp. rate 16, height 6' 3 (1.905 m), weight (!) 146.6 kg (323 lb 3.1 oz), SpO2 100 %. 10/31/19 0920 WBC 9.3 RBC 4.97 HGB 13.7* HCT 42.4* PLT 243 Anesthesia Plan ASA 3 Intravenous Induction Anesthesia type: general Discussed potential risks of General Anesthesia including but not limited to corneal abrasion, visual impairment or visual loss, mouth injury, dental damage, sore throat, hoarseness, esophageal injury, awareness under anesthesia, nerve injury due to positioning, aspiration, pneumonia, stroke, cardiac event, adverse drug reactions and . GETA Informed Consent Anesthetic plan and risks discussed with patient of whom consent was obtained. . documented in this encounter Plan of Treatment Upcoming Encounters Date Type Department Care Team (Late st Contact Info) Description 03/28/2024 7:30 AM DETECTIVE AUTOMOBILE SECTION Hospital Encounter [facility] Day Services [place] [id number] Antwan Stone, DIEGO [address], [place] [address] 03/28/2024 7:30 AM DETECTIVE AUTOMOBILE SECTION Anesthesia Event [facility] [place] [address] Shanelle Avila, VASCULAR ULTRASOUND TECHNOLOGIST [address] [place] [address] 03/28/2024 7:30 AM DETECTIVE AUTOMOBILE SECTION - 03/28/2024 8:48 AM DETECTIVE AUTOMOBILE SECTION Surgery [facility] [place] [address] Antwan Stone, DIEGO [address], [place] [address] REMOVAL OF HARDWARE LEFT FOOT 04/05/2024 8:30 AM DETECTIVE AUTOMOBILE SECTION Office Visit [facility] THREE [facility], [facility] [address] [place] [address] Dominick Mccloud MD Three [facility]. [facility] [address] [place] [address] Scheduled Procedures Name Priority Associated Diagnoses Date/Ti me REMOVAL PLATE SCREW OR PIN SCHED BY FAX 02/08/24 [facility] PHONE ASSESS 03/28/2024 7:30 AM DETECTIVE AUTOMOBILE SECTION documented as of this encounter Visit Diagnoses Not on filedocumented in this encounter Administered Medications Inactive Administered Medications - up to 3 most recent administrations Medication Order MAR Action Action Date Dose Rate Site ceFAZolin (ANCEF) 3 g in sodium chloride 0.9 % 100 mL IVPB 3 g, Intravenous, at 200 mL/hr, Once, 1 dose, On Thu10/31/19 at 0830, Per P&T approved protocol for wt> 120kg, Pre-Op New Bag 10/31/2019 10:55 AM CDT 3 g fentaNYL (SUBLIMAZE) injection Intravenous, PRN, Starting on Thu10/31/19 at 1052, Until Thu10/31/19 at 1142, Anesthesia Intra-Op Given 10/31/2019 11:39 AM CDT 25 mcg Given 10/31/2019 11:35 AM CDT 25 mcg Given 10/31/2019 10:52 AM CDT 50 mcg lactated ringers infusion Intravenous, Continuous PRN, Starting on Thu10/31/19 at 1042, Until Thu10/31/19 at 1142, Anesthesia Intra-Op New Bag 10/31/2019 10:42 AM CDT lidocaine (PF) (XYLOCAINE) 2 % injection Intravenous, PRN, Starting on Thu10/31/19 at 1052, Until Thu10/31/19 at 1142, Anesthesia Intra-Op Given 10/31/2019 10:52 AM CDT 60 mg midazolam (VERSED) injection Intravenous, PRN, Starting on Thu10/31/19 at 1040, Until Thu10/31/19 at 1142, Anesthesia Intra-Op Given 10/31/2019 10:40 AM CDT 2 mg ondansetron (ZOFRAN) injection Intravenous, PRN, Starting on Thu10/31/19 at 1100, Until Thu10/31/19 at 1142, Anesthesia Intra-Op Given 10/31/2019 11:00 AM CDT 4 mg propofol (DIPRIVAN) IV bolus Intravenous, PRN, Starting on Thu10/31/19 at 1052, Until Thu10/31/19 at 1142, Anesthesia Intra-Op Given 10/31/2019 10:52 AM CDT 200 mg succinylcholine (ANECTINE) injection Intravenous, PRN, Starting on Thu10/31/19 at 1052, Until Thu10/31/19 at 1142, Anesthesia Intra-Op Given 10/31/2019 10:52 AM CDT 140 mg documented in this encounter Care Teams Rumper Relationship Specialty Start Date End Date Clara Stanley APNP [address] [place] [address] PCP - General NURSE PRACTITIONER 06/01/18 Dominick Mccloud MD [facility]. [facility] [address] [place] [address] Wil[place] Tissue Recovery Technician CARDIOVASCULAR DISEASE 03/28/19 Alexis Lopez MD [address] [facility] [address] [place] [address] PULMONARY DISEASE 10/21/19 documented as of this encounter
--- OUTSIDE RECORDS SUMMARY | 2024-03-02 03:21 | XMS_ITS | Encounter Summary ---
Author Organization [facility] Address [address] [place] [address]. [place], [place] [address] [place] [address] Care Team Providers Care Story Editor Name Role Phone Clara Stanley Primary Care Provider [phone] Dominick Mccloud MD Unavailable [phone] Alexis Lopez MD Unavailable [phone] Encounter Details Date Type Department Care Team (Latest Contact Info) Description 11/30/2019 Travel Social History Tobacco Use Types Packs/Day [...] have Coronavirus / COVID-19? No / Unsure 11/30/2019 8:27 AM CDT documented as of this encounter Plan of Treatment Upcoming Encounters Date Type Department Care Team (Late st Contact Info) Description 03/28/2024 7:30 AM [facility] Hospital Encounter [facility] [place] [address] Antwan Stone DPM [address], [place] [address] 03/28/2024 7:30 AM MANAGER TERMINAL Anesthesia Event [facility] [place] [address] Shanelle Avila, GRAIN ROASTER [address] [place] [address] 03/28/2024 7:30 AM MANAGER TERMINAL - 03/28/2024 8:48 AM MANAGER TERMINAL Surgery [facility] [place] [address] Antwan Stone DPM [address], [place] [address] REMOVAL OF HARDWARE LEFT FOOT 04/05/2024 8:30 AM MANAGER TERMINAL Office Visit [facility] THREE [facility] [address] [place], [place] [address] Dominick Mccloud MD Three [facility]. [facility] [address] [place], [place] [address] Scheduled Procedures Name Priority Associated Diagnoses Date/Ti me REMOVAL PLATE SCREW OR PIN SCHED BY FAX 02/08/24 [facility] PHONE ASSESS 03/28/2024 7:30 AM MANAGER TERMINAL documented as of this encounter Visit Diagnoses Not on filedocumented in this encounter Care Teams Story Editor Relationship Specialty Start Date End Date Clara Stanley APNP [address] [place] [address] PCP - General NURSE PRACTITIONER 06/01/18 Dominick Mccloud MD [facility]. [facility] [address] [place] [address] Fely Hat Sizer CARDIOVASCULAR DISEASE 03/28/19 Alexis Lopez MD [address] [facility] [address] [place] [address] PULMONARY DISEASE 10/21/19 documented as of this encounter
--- OUTSIDE RECORDS SUMMARY | 2024-03-02 03:21 | XMS_ITS | Encounter Summary ---
Author Organization [facility] Address [address] [place] [address]. [place], [place] [address] [place] [address] Care Team Providers Care Animal Husbandry Professor Name Role Phone Clara Stanley Primary Care Provider [phone] Dominick Mccloud MD Unavailable [phone] Alexis Lopez MD Unavailable [phone] Encounter Details Date Type Department Care Team (Late st Contact Info) Description 03/28/2020 Orders Only [facility] Family & Internal Medicine [address] [address] Estrellita Chi, NICANOR Social History Tobacco Use Types Packs/Day Years [...] COVID-19? No / Unsure 03/28/2020 11:13 AM QUICK MIXER OPERATOR documented as of this encounter Plan of Treatment Upcoming Encounters Date Type Department Care Team (Late st Contact Info) Description 03/28/2024 7:30 AM QUICK MIXER OPERATOR Hospital Encounter [facility] [place] [address] Antwan Stone, DIEGO [address], [place] [address] 03/28/2024 7:30 AM QUICK MIXER OPERATOR Anesthesia Event [place] [address] Shanelle Avila, STOCK TURNER [address] [facility] [place] [address] 03/28/2024 7:30 AM QUICK MIXER OPERATOR - 03/28/2024 8:48 AM QUICK MIXER OPERATOR Surgery [place] [address] Antwan Stone, DIEGO [address], [place] [address] REMOVAL OF HARDWARE LEFT FOOT 04/05/2024 8:30 AM QUICK MIXER OPERATOR Office Visit [facility] THREE [facility], [facility] [address] [place] [address] Dominick Mccloud MD Three [facility]. [facility] [address] [place] [address] Scheduled Procedures Name Priority Associated Diagnoses Date/Ti me REMOVAL PLATE SCREW OR PIN SCHED BY FAX 02/08/24 KAYLIE PHONE ASSESS 03/28/2024 7:30 AM QUICK MIXER OPERATOR documented as of this encounter Visit Diagnoses Not on filedocumented in this encounter Additional Health Concerns Assessment Noted Time PHQ-9 Depression Total Score: 4 03/28/19 21 1:42 PM QUICK MIXER OPERATOR documented as of this encounter Care Teams Animal Husbandry Professor Relationship Specialty Start Date End Date Clara Stanley APNP [facility] [place] [address] PCP - General NURSE PRACTITIONER 06/01/18 Dominick Mccloud MD [address] [address] [place] Director Learning CARDIOVASCULAR DISEASE 03/28/19 Alexis Lopez MD [address] [address] PULMONARY DISEASE 10/21/19 documented as of this encounter
--- OUTSIDE RECORDS SUMMARY | 2024-03-02 03:21 | XMS_ITS | Encounter Summary ---
Author Organization [facility] Address [address] [place] [address]. [place] [address] [place] [address] Care Team Providers Care Collection Teller Name Role Phone Clara Stanley Primary Care Provider Dominick Mccloud MD Unavailable [phone] Alexis Lopez MD Unavailable [phone] Kip Del Rio MD Unavailable [phone] Encounter Details Date Type Department Care Team (Late st Contact Info) Description 10/20/2019 Prep for Procedure [facility] [place] [address] Antwan Milton MD Three [facility]. [facility] [address] [place] [address] Social History Tobacco Use Types Packs/Day Years [...] st Contact Info) Description 03/28/2024 7:30 AM MEDICAL LEGAL INVESTIGATOR Hospital Encounter [facility] [place] [address] Antwan Stone, DIEGO [address], [place] [address] 03/28/2024 7:30 AM MEDICAL LEGAL INVESTIGATOR Anesthesia [place] [address] Shanelle Avila CNP [address] [place] [address] 03/28/2024 7:30 AM MEDICAL LEGAL INVESTIGATOR - 03/28/2024 8:48 AM MEDICAL LEGAL INVESTIGATOR Surgery [place] [address] Antwan Stone, DIEGO [address], [place] [address] REMOVAL OF HARDWARE LEFT FOOT 04/05/2024 8:30 AM MEDICAL LEGAL INVESTIGATOR Office Visit [facility] THREE [facility], [facility] [address] [place], [place] [address] Dominick Mccloud MD Three [facility]. [facility] [address] [place] [address] Scheduled Procedures Name Priority Associated Diagnoses Date/Ti me REMOVAL PLATE SCREW OR PIN SCHED BY FAX 02/08/24 [facility] PHONE ASSESS 03/28/2024 7:30 AM MEDICAL LEGAL INVESTIGATOR documented as of this encounter Results * PRE-SURGICAL/PRE-PROCEDURE CORONAVIRUS (COVID 19) (10/28/2019 10:05 AM CDT) CORONAVIRUS SARS COV 2 PCR (RESP) NOT DETECTED NOT DETECTED 10/30/2019 8:53 AM CDT [facility] Comment: A Not Detected (negative) test [...] providers and patients using the following websites: https://www.Chartio.[employer] [place]/home/Covid-19/HCP/[facility]/fact- sheet.html https://www.Chartio.[employer] [place]/home/Covid-19/Patients/ [facility]/fact-sheet.html This test has been authorized by the FDA under an Emergency Use Authorization (EUA) for use by authorized laboratories. Due to the current public health emergency, [facility] is receiving a high volume of samples [...] about COVID-19 can be found at the [facility] website: www.Discoverly.[employer] [place]/Covid19. Test performed at [facility] [place] [address] [place], [place] ??[phone] Director: ENRICO VALDEZ DO,MPH NASOPHARYNGEAL SWAB / Unknown 10/28/2019 10:05 AM CDT us Antwan Milton MD MICROBIOLOGY - GENERAL ORDERABLE S Final Result [facility] [address] [place] [address], documented in this encounter Visit Diagnoses Diagnosis Pre-op exam- Primary Preoperative examination, unspecified Painful orthopaedic hardware (CMS/HCC)- Primary documented in this encounter Additional Health Concerns Infection Onset Date Last Indicated Resolved Time COVID-19 Rule Out 10/28/2019 10/28/2019 10/30/2019 8:53 AM CDT documented as of this encounter Care Teams Collection Teller Relationship Specialty Start Date End Date Clara Stanley APNP [address] [place] [address] PCP - General NURSE PRACTITIONER 06/01/18 Dominick Mccloud MD [facility] [address] [place] [address] [employer] Market Development Trainer CARDIOVASCULAR DISEASE 03/28/19 Alexis Lopez MD [address] [facility] [address] [place] [address] PULMONARY DISEASE 10/21/19 Kip Del Rio MD [address] [facility] [address] [place] [address] MEDICAL ONCOLOGY 02/24/24 documented as of this encounter
--- OUTSIDE RECORDS SUMMARY | 2024-03-02 03:21 | XMS_ITS | Encounter Summary ---
Author Organization [facility] Address [address] [place] [address]. [place], [place] [address] [place] [address] Care Team Providers Care Fast Food Fry Cook Name Role Phone Clara Stanley Primary Care Provider [phone] Dominick Mccloud MD Unavailable [phone] Reason for Visit * Reason Onset Date Comments Lab Results 09/28/2019 Encounter Details Date Type Department Care Team (Late st Contact Info) Description 09/28/2019 Telephone [facility] Family & Internal Medicine [facility] [address] [place] [address] Clara Stanley APNP [address] [place] [address] Lab Results Social History Tobacco [...] as of this encounter Progress Notes * Cheri Steiner RN - 10/03/2019 12:19 PM CDT Spoke to patient; verbalized understanding. Labs ordered * Cheri Steiner RN - 09/30/2019 4:16 PM CDT LMTC 09/30/19 * Cheri Steiner RN - 09/30/2019 4:02 PM CDT ----- Message from ZEB Nunn sent at 09/30/2019 3:17 PM CDT ----- Pt's iron is a little low---have him to take MVI with iron or OTC iron 325 mg one PO QD. Let's recheck this in about 3 months * Cheri Steiner RN - 09/28/2019 2:31 PM CDT Spoke to patient; verbalized understanding. Tests added on per Laisha at [facility]. * Cheri Steiner RN - 09/28/2019 2:19 PM CDT ----- Message from ZEB Nunn sent at 09/27/2019 6:16 PM CDT ----- Lipids slightly elevated but stable. Continue current dose of pravastatin He is found to be slightly anemic with his recent CBC. If possible please add on an iron panel and ferritin as well as a vitamin B12 and folate. Patient know we will notify him of the results. Other labs found to be unremarkable. documented in this encounter Plan of Treatment Upcoming Encounters Date Type Department Care Team (Late st Contact Info) Description 03/28/2024 7:30 AM GAS CUTTER Hospital Encounter [facility] [place] [facility] [address] Antwan Stone, TEJASM [address], [place] [address] 03/28/2024 7:30 AM GAS CUTTER Anesthesia Event [facility] [address] Shanelle Avila, RAEANN [address] [facility] [place] [address] 03/28/2024 7:30 AM GAS CUTTER - 03/28/2024 8:48 AM GAS CUTTER Surgery [facility] OR [facility] [address] Antwan Stone, DIEGO [address], [place] [address] REMOVAL OF HARDWARE LEFT FOOT 04/05/2024 8:30 AM GAS CUTTER Office Visit [facility] THREE [facility], [facility] [address] [place] [address] Dominick Mccloud MD Three [facility]. [facility] [address] [place] [address] Scheduled Orders Name Type Priority Associated Diagnoses Orde r Schedule CBC W/DIFF AUTOMATED Lab Routine Abnormal CBC Expected: 01/03/2020, Expires: 02/03/2020 IRON SAT PANEL (IRON,IBC,%SAT) Lab Routine Abnormal CBC Expected: 01/03/2020, Expires: 02/03/2020 FERRITIN Lab Routine Abnormal CBC Expected: 01/03/2020, Expires: 02/03/2020 Scheduled Procedures Name Priority Associated Diagnoses Date/Ti me REMOVAL PLATE SCREW OR PIN SCHED BY FAX 02/08/24 [facility] PHONE ASSESS 03/28/2024 7:30 AM GAS CUTTER documented as of this encounter Results * VITAMIN B12 / FOLATE (09/26/2019 1:52 PM CDT) [facility] VITAMIN B12 S/P/B 292 254 - 1,320 PG/ML 09/28/2019 3:27 PM CDT [facility] FOLATE 13.9 3.1 - 17.5 NG/ML 09/28/2019 3:27 PM CDT [facility] 09/26/2019 1:52 PM CDT [facility] Final Resul t [facility] [address] [place] [address], [place] [phone] * FERRITIN (09/26/2019 1:52 PM CDT) [facility] FERRITIN 56.4 8.0 - 388.0 NG/ML 09/28/2019 3:05 PM CDT [facility] 09/26/2019 1:52 PM CDT Clara Lizeth [facility] Final Resul t [facility] [address] [place] [address], [place] [phone] * (ABNORMAL) IRON SAT PANEL (IRON,IBC,%SAT) (09/26/2019 1:52 PM CDT) IRON 62(L) 65.0 - 175.0 MCG/DL 09/28/2019 3:27 PM CDT [facility] IRON BINDING CAPACITY 371 250 - 450 MCG/DL 09/28/2019 3:27 PM CDT [facility] IRON SATURATION 17(L) 20 - 55 % 0 3:27 PM CDT [facility] 09/26/2019 1:52 PM CDT us Clara [facility] Final Resul t [facility] [address] [place] [address], [place] [phone] documented in this encounter Visit Diagnoses Diagnosis Abnormal CBC- Primary Other abnormal blood chemistry Painful orthopaedic hardware (CMS/HCC)- Primary documented in this encounter Care Teams Fast Food Fry Cook Relationship Specialty Start Date End Date Clara Stanley APNP [address] [place] [address] PCP - General NURSE PRACTITIONER 06/01/18 Dominick Mccloud MD Three [facility]. [facility] [address] [place] [address] [place] Director Of Application Development CARDIOVASCULAR DISEASE 03/28/19 documented as of this encounter
--- OUTSIDE RECORDS SUMMARY | 2024-03-02 03:21 | XMS_ITS | Encounter Summary ---
Author Organization [facility] Address [address] [place] [address]. [place], [place] [address] [place] [address] Care Team Providers Care Pens And Pencils Repairer Name Role Phone Clara Stanley Primary Care Provider [phone] Dominick Mccloud MD Unavailable [phone] Encounter Details Date Type Department Care Team (Latest Contact Info) Description 09/26/2019 2:43 PM CDT - 09/26/2019 6:33 PM CDT Hospital Encounter [facility] [place] [address] Clara Stanley APNP [facility] [place], [place] [id number] Discharge Disposition: Home or Self Care (Routine [...] AM CDT documented as of this encounter Medications at Time of Discharge cetirizine (ZYRTEC) 10 MG tablet Take 1 tablet (10 mg total) by mouth daily. 5 acetaZOLAMIDE ER 500 MG 12 hr capsuleIndications: [...] daily. 270 capsule 2 0 01/24/20 21 LORazepam 0.5 MG tabletIndications:D epression with anxiety Take 1 tablet (0.5 mg total) by mouth every 8 (eight) hours as needed for Anxiety. 60 tablet 0 01/24/20 21 PRAVASTATIN 20 MG tabletIndications:M ixed hyperlipidemia TAKE 1 TABLET BY MOUTH EVERY NIGHT AT BEDTIME 90 tablet 3 0 07/19/19 21 documented as of this encounter Progress Notes * ZEB Nunn - 09/26/2019 6:33 PM CDT Pt's iron is a little low---have him to take MVI with iron or OTC iron 325 mg one PO QD. Let's recheck this in about 3 months documented in this encounter Plan of Treatment Upcoming Encounters Date Type Department Care Team (Late st Contact Info) Description 03/28/2024 7:30 AM [facility] Hospital Encounter [facility] [place] [address] Antwan Stone DPM [address], [place] [address] 03/28/2024 7:30 AM BATH TESTER Anesthesia Event [facility] [place] [address] Shanelle Avila, WRECKING MECHANIC [address] [place] [address] 03/28/2024 7:30 AM BATH TESTER - 03/28/2024 8:48 AM BATH TESTER Surgery [facility] [place] [address] Antwan Stone DPM [address], [place] [address] REMOVAL OF HARDWARE LEFT FOOT 04/05/2024 8:30 AM BATH TESTER Office Visit [facility] THREE [facility], [facility] [address] [place] [address] Dominick Mccloud MD Three [facility]. [facility] [address] [place] [address] Scheduled Procedures Name Priority Associated Diagnoses Date/Ti me REMOVAL PLATE SCREW OR PIN SCHED BY FAX 02/08/24 [facility] PHONE ASSESS 03/28/2024 7:30 AM BATH TESTER documented as of this encounter Procedures Procedure Name Priority Date/Time Associated Diagnosis Comments VITAMIN B12 / FOLATE Routine 09/26/2019 1:52 PM CDT Abnormal CBC IRON SAT PANEL (IRON,IBC,%SAT) Routine 09/26/2019 1:52 PM CDT Abnormal CBC FERRITIN Routine 09/26/2019 1:52 PM CDT Abnormal CBC documented in this encounter Results * (ABNORMAL) IRON SAT PANEL (IRON,IBC,%SAT) (09/26/2019 1:52 PM CDT) [facility] IRON 62(L) 65.0 - 175.0 MCG/DL 09/28/2019 3:27 PM CDT [facility] IRON BINDING CAPACITY 371 250 - 450 MCG/DL 09/28/2019 3:27 PM CDT [facility] IRON SATURATION 17(L) 20 - 55 % 0 3:27 PM CDT [facility] 09/26/2019 1:52 PM CDT Clara Lizeth [facility] Final Resul t [facility] [address] [place] [address], * FERRITIN (09/26/2019 1:52 PM CDT) [facility] FERRITIN 56.4 8.0 - 388.0 NG/ML 09/28/2019 3:05 PM CDT [facility] 09/26/2019 1:52 PM CDT Clara Lizeth [facility] Final Resul t [facility] [address] [place] [address], [place] [phone] * VITAMIN B12 / FOLATE (09/26/2019 1:52 PM CDT) VITAMIN B12 S/P/B 292 254 - 1,320 PG/ML 09/28/2019 3:27 PM CDT [facility] FOLATE 13.9 3.1 - 17.5 NG/ML 09/28/2019 3:27 PM CDT [facility] 09/26/2019 1:52 PM CDT Clara [facility] Final Resul t [facility] [address] [place] [address], documented in this encounter Visit Diagnoses Diagnosis Abnormal CBC Other abnormal blood chemistry Painful orthopaedic hardware (CMS/HCC)- Primary documented in this encounter Care Teams Pens And Pencils Repairer Relationship Specialty Start Date End Date Clara Stanley APNP [address] [place] [address] PCP - General NURSE PRACTITIONER 06/01/18 Dominick Mccloud MD Three [facility] [address] [place] [address] [place] Psychological Aide CARDIOVASCULAR DISEASE 03/28/19 documented as of this encounter
--- OUTSIDE RECORDS SUMMARY | 2024-03-02 03:21 | XMS_ITS | Encounter Summary ---
Author Organization [facility] Address [address] [place] [address]. [place], [place] [address] [place] [address] Care Team Providers Care Plastics Tooling Engineer Name Role Phone Clara Stanley Primary Care Provider Dominick Mccloud MD Unavailable [phone] Encounter Details Date Type Department Care Team (Latest Contact Info) Description 09/26/2019 6:34 PM CDT - 09/26/2019 11:59 PM CDT Hospital Encounter [facility] [place] [address] Clara Stanley APNP [facility] [place], [place] [address] Discharge Disposition: Home or Self Care (Routine [...] encounter Progress Notes * ZEB Nunn - 09/27/2019 6:16 PM CDT Lipids slightly elevated but stable. Continue current [...] st Contact Info) Description 03/28/2024 7:30 AM ALARM INSTALLATION TECHNICIAN Hospital Encounter [facility] [place] [address] Antwan Stone, DPM [address], [place] [address] 03/28/2024 7:30 AM ALARM INSTALLATION TECHNICIAN Anesthesia [place] [address] Shanelle Avila, RAEANN [address] [place] [address] 03/28/2024 7:30 AM ALARM INSTALLATION TECHNICIAN - 03/28/2024 8:48 AM ALARM INSTALLATION TECHNICIAN [place] [address] Antwan Stone, DIEGO [address], [place] [address] REMOVAL OF HARDWARE LEFT FOOT 04/05/2024 8:30 AM ALARM INSTALLATION TECHNICIAN Office Visit [facility] THREE [facility], [facility] [address] [place] [address] Dominick Mccloud MD Three [facility]. [facility] [address] [place] [address] Scheduled Procedures Name Priority Associated Diagnoses Date/Ti me REMOVAL PLATE SCREW OR PIN SCHED BY FAX 02/08/24 [facility] PHONE ASSESS 03/28/2024 7:30 AM ALARM INSTALLATION TECHNICIAN documented as of this encounter Procedures Procedure Name Priority Date/Time Associated Diagnosis Comments URINALYSIS WI REFLEX TO CULTURE Routine 09/26/2019 1:52 PM CDT Routine medical exam TSH W/REFLEX Routine 09/26/2019 1:52 PM CDT Morbid obesity (CMS/HCC HHS/HCC) Routine medical exam COMPREHENSIVE METABOLIC PANEL Routine 09/26/2019 1:52 PM CDT Essential hypertension Routine medical exam LIPID PANEL Routine 09/26/2019 1:52 PM CDT Mixed hyperlipidemia Routine medical exam CBC W/DIFF AUTOMATED Routine 09/26/2019 1:52 PM CDT Routine medical exam URIC ACID BLOOD Routine 09/26/2019 1:52 PM CDT Routine medical exam documented in this encounter Results * TSH W/REFLEX (09/26/2019 1:52 PM CDT) TSH 2.580 0.358 - 3.74 uIU/ML 09/26/2019 8:[address] [facility] Comment: HIGH DOSES OF BIOTIN MAY INTERFERE WITH THIS TEST RESULT. CORRELATION TO CLINICAL HISTORY AND PRESENTATION RECOMMENDED. FREE T4 NOT INDICATED 09/26/2019 1:52 PM CDT Clara [facility] Final Resul t [facility] [address] [place] [id number], * URINALYSIS WI REFLEX TO CULTURE (09/26/2019 1:52 PM CDT) SPECIMEN TYPE URINE CLEAN CATCH 09/26/2019 6:[address] [facility] COLOR (U) YELLOW 09/26/2019 7:[address] [facility] TRANSPARENCY CLEAR 09/26/2019 7:[address] [facility] SPECIFIC GRAVITY (U) 1.024 1.001 - 1.030 09/26/2019 7:[address] [facility] U PH 5.5 5.0 - 9.0 09/26/2019 7:[address] [facility] LEUKOCYTES (U) NEGATIVE NEGATIVE 09/26/2019 7:[address] [facility] NITRITES NEGATIVE NEGATIVE 09/26/2019 7:[address] [facility] PROTEIN (U) NEGATIVE <30 MG/DL 09/26/2019 7:[address] [facility] URINE GLUCOSE NORMAL NORMAL MG/DL 09/26/2019 7:[address] [facility] KETONES MG/DL (U) NEGATIVE NEGATIVE MG/DL 09/26/2019 7:[address] [facility] UROBILINOGEN NORMAL NORMAL MG/DL 09/26/2019 7:[address] [facility] BILIRUBIN (U) NEGATIVE NEGATIVE MG/DL 09/26/2019 7:[address] [facility] BLOOD (U) NEGATIVE NEGATIVE 09/26/2019 7:[address] [facility] CULTURE & SENSITIVITY INDICATED? CULTURE IS NOT INDICATED 09/26/2019 7:[address] [facility] MUCUS FEW /LPF 09/26/2019 7:[address] [facility] HYALINE CASTS RARE /LPF 09/26/2019 7:[address] [facility] WBC/HPF 3 <6 /HPF 09/26/2019 7:[address] [facility] RBC/HPF 1 <6 /HPF 09/26/2019 7:[address] [facility] CA OXALATE CRYSTALS RARE /HPF 09/26/2019 7:[address] [facility] SQUAMOUS EPITHELIALS RARE /HPF 09/26/2019 7:[address] [facility] URINE SPECIMEN OBTAINED BY CLEAN CATCH PROCEDURE / Unknown 09/26/2019 1:52 PM CDT Clara [facility] URINE ORDERABLES Final Resu lt Performing Organization Address City/[facility]/ZIP Co de Phone Number [facility] [address] [place] [address], [place] [phone] * URIC ACID BLOOD (09/26/2019 1:52 PM CDT) URIC ACID 6.3 3.5 - 7.2 MG/DL 09/26/2019 8:[address] [facility] 09/26/2019 1:52 PM CDT [facility] Final Resul t Performing Organization Address City/[facility]/ZIP Co de Phone Number [facility] [address] [place] [address], [place] [phone] * (ABNORMAL) COMPREHENSIVE METABOLIC PANEL (09/26/2019 1:52 PM CDT) GLUCOSE 85 70 - 99 MG/DL 09/26/2019 8:[address] [facility] BUN 14 7 - 18 MG/DL 09/26/2019 8:[address] [facility] CREATININE S/P/B 0.87 0.7 - 1.3 MG/DL 09/26/2019 8:[address] [facility] SODIUM S/P/B 139 136 - 145 MMOL/L 09/26/2019 8:[address] [facility] POTASSIUM S/P/B 3.9 3.5 - 5.1 MMOL/L 09/26/2019 8:[address] [facility] CHLORIDE S/P/B 110(H) 100 - 108 MMOL/L 09/26/2019 8:[address] [facility] CO2 22.6 21 - 32 MMOL/L 09/26/2019 8:[address] [facility] CALCIUM S/P/B 9.4 8.5 - 10.1 MG/DL 09/26/2019 8:[address] [facility] BILIRUBIN TOTAL S/P/B 0.2 0.2 - 1.2 MG/DL 09/26/2019 8:[address] [facility] Comment: THIS ASSAY IS NOT RECOMMENDED FOR PATIENTS UNDERGOING TREATMENT WITH ELTROMBOPAG DUE TO THE POTENTIAL FOR FALSELY ELEVATED RESULTS. TOTAL PROTEIN S/P/B 8.0 6.4 - 8.2 G/DL 09/26/2019 8:[address] [facility] ALBUMIN S/P/B 4.0 3.4 - 5.0 G/DL 09/26/2019 8:[address] [facility] AST 17 15 - 37 U/L 09/26/2019 8:[address] [facility] ALT 21 16 - 60 U/L 09/26/2019 8:[address] [facility] ALKALINE PHOSPHATASE S/P/B 136 50 - 136 U/L 09/26/2019 8:[address] [facility] ANION GAP 6.4 5 - 15 MMOL/L 09/26/2019 8:[address] [facility] BUN CREATININE RATIO 16.0 6 - 26 09/26/2019 8:[address] [facility] A/G RATIO 1.0 1.0 - 2.0 RATIO 09/26/2019 8:[address] [facility] EGFR NON-AFR. AMER. >90 >90 ML/MIN/1.7 3 M2 09/26/2019 8:[address] [facility] EGFR AFR. AMER. >90 >90 ML/MIN/1.7 3 M2 09/26/2019 8:[address] [facility] Comment: NOTE: eGFR is not calculated for patients <18 years of age. This is an estimated GFR (CKD EPI) and should not be used for calculating drug doses. 09/26/2019 1:52 PM CDT us Clara [facility] Final Resul t [facility] [address] [place] [address], * (ABNORMAL) LIPID PANEL (09/26/2019 1:52 PM CDT) CHOLESTEROL 196 <200 MG/DL 09/26/2019 8:[address] [facility] TRIGLYCERIDES 150(H) <150 MG/DL 09/26/2019 8:[address] [facility] HDL 52 >40.0 MG/DL 09/26/2019 8:[address] [facility] LDL (CALCULATED) 114(H) <100 MG/DL 09/26/2019 8:[address] [facility] NON HDL CHOLESTEROL 144(H) <130 MG/DL 09/26/2019 8:[address] [facility] CHOL/HDL RATIO 3.8 0.0 - 4.5 09/26/2019 8:[address] [facility] VLDL CALCULATION 30 5 - 55 MG/DL 09/26/2019 8:[address] [facility] LIPID INTERPRETATION 09/26/2019 8:[address] [facility] Comment: NIH [facility] REPORT RECOMMENDATIONS: ?ADULT ?CHILD ??LOW RISK: ?CHOLESTEROL ? <200 ? <170 ?TRIGLYCERIDE ?<150 ?--- ?HDL ? >=60 ?--- ?LDL ? <100 ? <110 ??BORDERLINE: ?CHOLESTEROL ? 200-239 ?? 170-199 ?TRIGLYCERIDE ?150-199 ? --- ?HDL ?40-59 ?--- ?LDL ? 100-159 ?? 110-129 ??HIGH RISK: ?CHOLESTEROL ? >=240 ?>=200 ?TRIGLYCERIDE ?>=200 ? --- ?HDL ?<40 ?--- ?LDL ? >=160 ?>=130 09/26/2019 1:52 PM CDT us Clara Stanley APNP LABORATORY Final Resul t Performing Organization Address City/[facility]/ZIP Co de Phone Number [facility] [address] [place] [address], [place] [phone] * (ABNORMAL) CBC W/DIFF AUTOMATED (09/26/2019 1:52 PM CDT) [facility] WBC 11.6(H) 4.5 - 11.0 x10'3/uL 09/26/2019 7:[address] [facility] RBC 5.25 4.70 - 6.10 x10'6/uL 09/26/2019 7:[address] [facility] HGB 13.7(L) 14.0 - 18.0 G/DL 09/26/2019 7:[address] [facility] HCT 44.6 43.0 - 54.0 % 09/26/2019 7:[address] [facility] MCV 85.0 80.0 - 94.0 FL 09/26/2019 7:[address] [facility] MCH 26.1(L) 27.0 - 31.0 PG 09/26/2019 7:[address] [facility] MCHC 30.7(L) 32.0 - 36.0 G/DL 09/26/2019 7:[address] [facility] RDW 16.5(H) 11.5 - 14.5 % 09/26/2019 7:[address] [facility] PLT 298 130 - 400 x10'3/uL 09/26/2019 7:[address] [facility] MPV 12.4(H) 9.3 - 12.2 FL 09/26/2019 7:[address] [facility] DIFFERENTIAL TYPE AUTOMATED DIFFERENTIAL 09/26/2019 7:[address] [facility] NEUTROPHILS % 72.2 % 09/26/2019 7:[address] [facility] LYMPHOCYTES % 14.0 % 09/26/2019 7:[address] [facility] MONOCYTES % 8.7 % 09/26/2019 7:[address] [facility] EOSINOPHILS 3.9 % 09/26/2019 7:[address] [facility] BASOPHILS 0.6 % 09/26/2019 7:[address] [facility] IMMATURE GRANS % 0.6 % 09/26/19 20 7:[address] [facility] ABS. NEUTROPHILS TOTAL 8.34(H) 1.80 - 7.70 x10'3/uL 09/26/2019 7:[address] [facility] ABS. LYMPHOCYTES 1.62 1.00 - 4.80 x10'3/uL 09/26/2019 7:[address] [facility] ABS. MONOCYTES 1.00(H) 0.30 - 0.82 x10'3/uL 09/26/2019 7:[address] [facility] ABS. EOSINOPHILS 0.45 0.04 - 0.54 x10'3/uL 09/26/2019 7:[address] [facility] ABS. BASOPHILS 0.07 0.01 - 0.08 x10'3/uL 09/26/2019 7:[address] [facility] ABS. IMMATURE GRANULOCYTES 0.07 0.00 - 0.49 x10'3/uL 09/26/2019 7:[address] [facility] 09/26/2019 1:52 PM CDT Clara [facility] Final Resul t [facility] [address] [place] [address], [place] [phone] documented in this encounter Visit Diagnoses Diagnosis Routine medical exam Routine general medical examination at a health care facility Mixed hyperlipidemia Essential hypertension Unspecified essential hypertension Morbid obesity (CMS/HCC [facility]/HCC) Morbid obesity Painful orthopaedic hardware ([facility])- Primary documented in this encounter Care Teams Plastics Tooling Engineer Relationship Specialty Start Date End Date Clara Stanley APNP [address] [place] [address] PCP - General NURSE PRACTITIONER 06/01/18 Dominick Mccloud MD [facility] [address] [place] [address] [place] Electrical Experimental Mechanic CARDIOVASCULAR DISEASE 03/28/19 documented as of this encounter
--- OUTSIDE RECORDS SUMMARY | 2024-03-02 03:22 | XMS_ITS | Encounter Summary ---
Author Organization [facility] Address [address] [place] [address]. [place] [address] [place] [address] Care Team Providers Care Synthetic Filament Extruder Name Role Phone Clara Stanley Primary Care Provider [phone] Dominick Mccloud MD Unavailable Reason for Visit * Reason Comments Image (SCAN) Encounter Details Date Type Department Care Team (Latest Contact Info) Description 08/16/2019 Scan HEALTH INFO SRVCS Scanned, Documents Image (SCAN) Social History Tobacco Use Types [...] AM [facility] Hospital Encounter [facility] [place] [address] Antwan Stone DPM [address], [place] [address] 03/28/2024 7:30 AM SOFTWARE LICENSING SPECIALIST Anesthesia [place] [address] Shanelle Avila, TECHNICAL PROFESSIONAL [address] [place] [address] 03/28/2024 7:30 AM SOFTWARE LICENSING SPECIALIST - 03/28/2024 8:48 AM SOFTWARE LICENSING SPECIALIST Surgery [facility] [place] [address] Antwan Stone, DPM [address], [place] [address] REMOVAL OF HARDWARE LEFT FOOT 04/05/2024 8:30 AM SOFTWARE LICENSING SPECIALIST Office Visit Darren Chaudhari-O'F allon THREE [facility], [facility] [address] [place] [address] Dominick Mccloud MD Three [facility]. [facility] [address] [place] [address] Scheduled Procedures Name Priority Associated Diagnoses Date/Ti me REMOVAL PLATE SCREW OR PIN SCHED BY FAX 02/08/24 [facility] PHONE ASSESS 03/28/2024 7:30 AM SOFTWARE LICENSING SPECIALIST documented as of this encounter Procedures Procedure Name Priority Date/Time Associated Diagnosis Comments IMAGE GENERIC Routine 08/16/2019 11:28 AM CDT documented in this encounter Results * IMAGE STUDY (08/16/2019 11:28 AM CDT) Anatomical Region Laterality Modality Other 08/16/2019 11:2 8 AM CDT us Documents Scanned SCANNING Edited Result - Final documented in this encounter Visit Diagnoses Not on filedocumented in this encounter Care Teams Synthetic Filament Extruder Relationship Specialty Start Date End Date Clara Stanley APNP [address] [place] [address] PCP - General NURSE PRACTITIONER 06/01/18 Dominick Mccloud MD [facility] [address] [place] [address] [place] Talent Agent CARDIOVASCULAR DISEASE 03/28/19 documented as of this encounter
--- OUTSIDE RECORDS SUMMARY | 2024-03-02 03:22 | XMS_ITS | Encounter Summary ---
Author Organization [facility] Address [address] [place] [address]. [place], [place] [id number] [place] [address] Care Team Providers Care Advertising Copy Writer Name Role Phone Clara Stanley Primary Care Provider [phone] Dominick Mccloud MD Unavailable [phone] Reason for Visit * Reason Comments Physical Encounter Details Date Type Department Care Team (Late st Contact Info) Description 09/26/2019 12:40 PM CDT Office Visit [facility] [id number] [place] [address] Clara Stanley APNP [facility] [place] [place] [address] Physical Social History Tobacco Use Types Packs/Day [...] Sign Reading Time Taken Comments Blood Pressure 110/74 09/26/2019 12:54 PM CDT Pulse 79 09/26/2019 12:54 PM CDT Temperature 36.6 ??C (97.9 ??F) 09/26/2019 12:54 PM C DT Respiratory Rate 18 09/26/2019 12:54 PM CDT Oxygen Saturation 98% 09/26/2019 12:54 PM CDT Inhaled Oxygen Concentration - - Weight 150.6 kg (332 lb) 09/26/2019 12:54 PM CDT Height 190.5 cm (6' 3 ) 09/26/2019 12:54 PM CDT Body Mass Index 41.5 09/26/2019 12:54 PM CDT documented in this encounter Progress Notes * ZEB Nunn - 09/26/2019 12:40 PM CDT Images from the original note were not included. 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 In May 2019, he had his right lower lobe of lung removed due CA. He continues to follow up with both his sole seamer and CT surgeon from [facility]. He is due for his dental appt and is UTD with his eye exam. Anxiety - for the most part symptoms are controlled. Tolerates his lorazepam well with no bothersome side effects. Requesting a refill of lorazepam. [place] DIRECTOR OF CLINICAL TRIALS checked and found to be appropriate. HTN - tolerates meds well and BP is well controlled. He denies any CP, SOB, WARD, dizziness, heart palpitations or lower extremity edema. HLD - Tolerates his statin well. Denies any myalgias. Lipids due and will be obtained today. Asthma - has been diagnosed with mild asthma after his sole seamer performed a methacholine challenge and he failed. He was placed on Symbicort and feels this is helping his SOB, wheezing symptoms. Colonoscopy - had in 2018 (Dr. Delgado) with removal of a few polyps. Follow up colonoscopy due in 2021. He is due for routine fasting labs and these will be ordered today. He has a follow up appt later this month with his neurologist for IIH. Notes WARD have resolved and he feels symptoms are controlled. He continues to avoid NSAIDS. He was evaluated in 04/2019 and 05/2019 for some left sided abd pain---according to pt---this has resolved. ROS: Review of Systems Constitutional: Negative for chills, fever and malaise/fatigue. HENT: Negative for congestion and hearing loss. Eyes: Negative for blurred vision and double vision. Respiratory: Negative for cough and shortness of breath. Cardiovascular: Negative for chest pain and palpitations. Gastrointestinal: Negative for abdominal pain, diarrhea, nausea and vomiting. Genitourinary: Negative for dysuria and urgency. Musculoskeletal: Negative for myalgias. Skin: Negative for itching and rash. Neurological: Negative for dizziness and headaches. Psychiatric/Behavioral: Negative for depression and suicidal ideas. The patient is not nervous/anxious. Medications: Current Outpatient Medications: ??? acetaZOLAMIDE ER 500 MG 12 hr capsule, Take 500 mg by mouth 2 (two) times daily., Disp: , Rfl: ??? amLODIPine 10 MG tablet, Take 1 tablet (10 mg total) by mouth nightly at bedtime., Disp: 90 tablet, Rfl: 3 ??? Budesonide-Formoterol Fumarate (SYMBICORT IN), , Disp: , Rfl: ??? cetirizine (ZYRTEC ALLERGY) 10 MG tablet, Take 10 mg by mouth nightly at bedtime. , Disp: , Rfl: ??? fluticasone propionate 50 MCG/ACT nasal spray, 1 spray by Nasal route daily., Disp: , Rfl: ??? gabapentin 300 MG capsule, Take 1 capsule (300 mg total) by mouth 3 (three) times daily., Disp:270 capsule, Rfl: 2 ??? LORazepam 0.5 MG tablet, Take 1 tablet (0.5 mg total) by mouth every 8 (eight) hours as needed for Anxiety., Disp: 60 tablet, Rfl: 0 ??? PRAVASTATIN 20 MG tablet, TAKE 1 TABLET BY MOUTH EVERY NIGHT AT BEDTIME, Disp: 90 tablet, Rfl: 3 Allergies: No Known Allergies Medical History: Past Medical History: Diagnosis Date ??? 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 Depression with anxiety 12/12/2014 ??? Dry skin dermatitis 01/05/2014 ??? Hyperlipidemia 02/21/2015 ??? Hypertension, benign 01/15/2017 ??? IIH (idiopathic intracranial hypertension) ??? Morbid obesity (CMS/HCC) 02/21/2015 ??? Other and unspecified hyperlipidemia 01/06/2014 Surgical History: Past Surgical History: Procedure Laterality Date ??? APPENDECTOMY ??? LUMBAR PUNCTURE 03/28/2019 Social History: Social History Socioeconomic History ??? [...] activity: Yes Partners: Female Lifestyle ??? Physical activity: Days per week: Not on file Minutes per session: Not on file ??? Stress: Not on file Relationships ??? Social connections: Talks on phone: Not on file Gets together: Not on file Attends mandaen service: Not on file Active member of [...] normal. Left Ear: External ear normal. Mouth/Throat: Oropharynx is clear and moist. Eyes: Pupils are equal, round, and reactive to light. Conjunctivae and EOM are normal. No scleral icterus. Neck: Normal range of motion. Neck supple. No JVD present. No tracheal deviation present. No thyromegaly present. Cardiovascular: Normal rate, regular rhythm and intact distal pulses. Exam reveals no gallop and nofriction rub. No murmur heard. Pulmonary/Chest: Effort normal and breath sounds normal. No respiratory distress. He has no wheezes. He has no rales. He exhibits no tenderness. Abdominal: Soft. Bowel sounds are normal. He exhibits no distension and no mass. There is no tenderness. There is no rebound and no guarding. Musculoskeletal: Normal range of motion. He exhibits no edema or tenderness. Lymphadenopathy: He has no cervical adenopathy. Neurological: He is alert and oriented to person, place, and time. He has normal reflexes. Gait normal. Skin: Skin is warm and dry. No rash noted. No erythema. No pallor. c shaped scar noted to right mid back, well healed Psychiatric: Mood and affect normal. Nursing note and vitals reviewed. Filed Vitals: 09/26/19 1254 BP: 110/74 Pulse: 79 Resp: 18 Temp: 97.9 ??F (36.6 ??C) SpO2: 98% Weight: (!) 150.6 kg (332 lb) Height: 6' 3 (1.905 m) Labs: Labs Reviewed Diagnoses/Impression: 1. Routine medical exam CBC W/DIFF AUTOMATED LIPID PANEL TSH W/REFLEX URINALYSIS WI REFLEX TO CULTURE URIC ACID BLOOD COMPREHENSIVE METABOLIC PANEL VENIPUNC ARM DRAW CANCELED: PROSTATE SPECIFIC ANTIGEN,SCREENING 2. Essential hypertension COMPREHENSIVE METABOLIC PANEL 3. Morbid obesity (CMS/HCC) TSH W/REFLEX Chronic 4. Mixed hyperlipidemia LIPID PANEL Chronic 5. Depression with anxiety LORazepam 0.5 MG tablet Chronic 6. High grade neuroendocrine carcinoma (CMS/HCC) 7. IIH (idiopathic intracranial hypertension) Chronic Recommendations and Plan: 1. Essential hypertension - COMPREHENSIVE METABOLIC PANEL; Future Blood pressure well controlled. He is to continue current dose of antihypertensive medications. 2. Morbid obesity (CMS/HCC) - TSH W/REFLEX; Future Therapeutic lifestyle changes and dietary changes conducive to weight loss were discussed with patient today. We will continue to monitor. 3. Mixed hyperlipidemia - LIPID PANEL; Future Stable. Continue meds. Plan to recheck lipids. Heart healthy/low cholesterol diet discussed and encouraged. 4. Routine medical exam - CBC W/DIFF AUTOMATED; Future - LIPID PANEL; Future - TSH W/REFLEX; Future - URINALYSIS WI REFLEX TO CULTURE; Future - URIC ACID BLOOD; Future - COMPREHENSIVE METABOLIC PANEL; Future - VENIPUNC ARM DRAW Routine fasting labs ordered today. We will plan after results. 5. Depression with anxiety - LORazepam 0.5 MG tablet; Take 1 tablet (0.5 mg total) by mouth every 8 (eight) hours as needed for Anxiety. Dispense: 60 tablet; Refill: 0 Stable. Continue PRN use of lorazepam. 6. High grade neuroendocrine carcinoma (CMS/HCC) Stable. Continue follow-up with CT surgeon and sole seamer as scheduled. 7. IIH (idiopathic intracranial hypertension) Stable. Continue meds. Continue follow-up with neurology as scheduled. Orders Placed This Encounter ??? VENIPUNC ARM DRAW ??? CBC W/DIFF AUTOMATED ??? LIPID PANEL ??? TSH W/REFLEX ??? URINALYSIS WI REFLEX TO CULTURE ??? URIC ACID BLOOD ??? COMPREHENSIVE METABOLIC PANEL ??? DISCONTD: LORazepam 0.5 MG tablet ??? Budesonide-Formoterol Fumarate (SYMBICORT IN) ??? fluticasone propionate 50 MCG/ACT nasal spray ??? LORazepam 0.5 MG tablet Cannot display discharge medications since this is not an admission. PCP: ZEB Nunn 09/27/2019 documented in this encounter Plan of Treatment Upcoming Encounters Date Type Department Care Team (Late st Contact Info) Description 03/28/2024 7:30 AM CIRCUS ARTIST Hospital Encounter [facility] [place] [address] Antwan Stone, DIEGO [address], [place] [address] 03/28/2024 7:30 AM CIRCUS ARTIST Anesthesia Event [facility] [place] [address] Shanelle Avila, SIGN OUT CLERK [address] [place] [address] 03/28/2024 7:30 AM CIRCUS ARTIST - 03/28/2024 8:48 AM CIRCUS ARTIST Surgery [facility] [place] [address] Antwan Stone, DIEGO [address], [place] [address] REMOVAL OF HARDWARE LEFT FOOT 04/05/2024 8:30 AM CIRCUS ARTIST Office Visit Darren Chaudhari-O'F allon THREE [facility] [address] [place] [address] Dominick Mccloud MD Three [facility]. [facility] [address] [place] [address] Scheduled Procedures Name Priority Associated Diagnoses Date/Ti me REMOVAL PLATE SCREW OR PIN SCHED BY FAX 02/08/24 JUANITOS PHONE ASSESS 03/28/2024 7:30 AM CIRCUS ARTIST documented as of this encounter Procedures Procedure Name Priority Date/Time Associated Diagnosis Comments VENIPUNC ARM DRAW Routine 09/26/2019 2:21 PM CDT Routine medical exam documented in this encounter Results * (ABNORMAL) COMPREHENSIVE METABOLIC PANEL (09/26/2019 1:52 PM CDT) [facility] GLUCOSE 85 70 - 99 MG/DL 09/26/2019 8:[address] [facility] BUN 14 7 - 18 MG/DL 09/26/2019 8:[address] [facility] CREATININE S/P/B 0.87 0.7 - 1.3 MG/DL 09/26/2019 8:[address] [facility] SODIUM S/P/B 139 136 - 145 MMOL/L 09/26/2019 8:03 PM [address] [facility] POTASSIUM S/P/B 3.9 3.5 - 5.1 MMOL/L 09/26/2019 8:[address] [facility] CHLORIDE S/P/B 110(H) 100 - 108 MMOL/L 09/26/2019 8:03 PM CDT [facility] CO2 22.6 21 - 32 MMOL/L 09/26/2019 8:03 PM CDT [facility] CALCIUM S/P/B 9.4 8.5 - 10.1 MG/DL 09/26/2019 8:03 PM CD[address] [facility] BILIRUBIN TOTAL S/P/B 0.2 0.2 - 1.2 MG/DL 09/26/2019 8:03 PM CDT [facility] Comment: THIS ASSAY IS NOT RECOMMENDED FOR PATIENTS UNDERGOING TREATMENT WITH ELTROMBOPAG DUE TO THE POTENTIAL FOR FALSELY ELEVATED RESULTS. TOTAL PROTEIN S/P/B 8.0 6.4 - 8.2 G/DL 09/26/2019 8:03 PM CD[address] [facility] ALBUMIN S/P/B 4.0 3.4 - 5.0 G/DL 09/26/2019 8:03 PM CDT [facility] AST 17 15 - 37 U/L 09/26/2019 8:03 PM CDT [facility] ALT 21 16 - 60 U/L 09/26/2019 8:03 PM CDT [facility] ALKALINE PHOSPHATASE S/P/B 136 50 - 136 U/L 09/26/2019 8:03 PM CDT [facility] ANION GAP 6.4 5 - 15 MMOL/L 09/26/2019 8:03 PM CDT [facility] BUN CREATININE RATIO 16.0 6 - 26 09/26/2019 8:03 PM CDT [facility] A/G RATIO 1.0 1.0 - 2.0 RATIO 09/26/2019 8:03 PM CDT [facility] EGFR NON-AFR. AMER. >90 >90 ML/MIN/1.7 3 M2 09/26/2019 8:03 PM CD[address] [facility] EGFR AFR. AMER. >90 >90 ML/MIN/1.7 3 M2 09/26/2019 8:03 PM CDT [facility] Comment: NOTE: eGFR is not calculated for patients <18 years of age. This is an estimated GFR (CKD EPI) and should not be used for calculating drug doses. 09/26/2019 1:52 PM CDT Clara CARRINGTON LABORATORY Final Resul t [facility] [address] [place] [address], [place] [phone] * URIC ACID BLOOD (09/26/2019 1:52 PM CDT) URIC ACID 6.3 3.5 - 7.2 MG/DL 09/26/2019 8:[address] [facility] 09/26/2019 1:52 PM CDT Clara CARRINGTON LABORATORY Final Resul t [facility] [address] [place] [address], * URINALYSIS WI REFLEX TO CULTURE (09/26/2019 1:52 PM CDT) SPECIMEN TYPE URINE CLEAN CATCH 09/26/2019 6:35 PM [address] [facility] COLOR (U) YELLOW 09/26/2019 7:56 PM CDT [facility] TRANSPARENCY CLEAR 09/26/2019 7:56 PM CDT [facility] SPECIFIC GRAVITY (U) 1.024 1.001 - 1.030 09/26/2019 7:56 PM CDT [facility] U PH 5.5 5.0 - 9.0 09/26/2019 7:56 PM CDT [facility] LEUKOCYTES (U) NEGATIVE NEGATIVE 09/26/2019 7:56 PM CDT [facility] NITRITES NEGATIVE NEGATIVE 09/26/2019 7:56 PM CDT [facility] PROTEIN (U) NEGATIVE <30 MG/DL 09/26/2019 7:56 PM CDT [facility] URINE GLUCOSE NORMAL NORMAL MG/DL 09/26/2019 7:56 PM CDT [facility] KETONES MG/DL (U) NEGATIVE NEGATIVE MG/DL 09/26/2019 7:56 PM CDT [facility] UROBILINOGEN NORMAL NORMAL MG/DL 09/26/2019 7:56 PM CDT [facility] BILIRUBIN (U) NEGATIVE NEGATIVE MG/DL 09/26/2019 7:56 PM CDT [facility] BLOOD (U) NEGATIVE NEGATIVE 09/26/2019 7:56 PM CDT [facility] CULTURE & SENSITIVITY INDICATED? CULTURE IS NOT INDICATED 09/26/2019 7:56 PM CDT [facility] MUCUS FEW /LPF 09/26/2019 7:56 PM CDT [facility] HYALINE CASTS RARE /LPF 09/26/2019 7:56 PM CDT [facility] WBC/HPF 3 <6 /HPF 09/26/2019 7:56 PM CDT [facility] RBC/HPF 1 <6 /HPF 09/26/2019 7:56 PM CDT [facility] CA OXALATE CRYSTALS RARE /HPF 09/26/2019 7:56 PM CDT [facility] SQUAMOUS EPITHELIALS RARE /HPF 09/26/2019 7:56 PM CDT [facility] URINE SPECIMEN OBTAINED BY CLEAN CATCH PROCEDURE / Unknown 09/26/2019 1:52 PM CDT Clara CARRINGTON URINE ORDERABLES Final Resu lt Performing Organization Address City/[facility]/ZIP Co de Phone Number [facility] [address] [place] [address], [place] [phone] * TSH W/REFLEX (09/26/2019 1:52 PM CDT) TSH 2.580 0.358 - 3.74 uIU/ML 09/26/2019 8:[address] [facility] Comment: HIGH DOSES OF BIOTIN MAY INTERFERE WITH THIS TEST RESULT. CORRELATION TO CLINICAL HISTORY AND PRESENTATION RECOMMENDED. FREE T4 NOT INDICATED 09/26/2019 1:52 PM CDT Clara CARRINGTON LABORATORY Final Resul t Performing Organization Address City/[facility]/ZIP Co de Phone Number [facility] [address] [place] [address], [place] [phone] * (ABNORMAL) LIPID PANEL (09/26/2019 1:52 PM CDT) [facility] Signature CHOLESTEROL 196 <200 MG/DL 09/26/2019 8:03 PM [address] [facility] TRIGLYCERIDES 150(H) <150 MG/DL 09/26/2019 8:03 PM [address] [facility] HDL 52 >40.0 MG/DL 09/26/2019 8:03 PM T [facility] LDL (CALCULATED) 114(H) <100 MG/DL 09/26/2019 8:03 PM T [facility] NON HDL CHOLESTEROL 144(H) <130 MG/DL 09/26/2019 8:03 PM T [facility] CHOL/HDL RATIO 3.8 0.0 - 4.5 09/26/2019 8:03 PM T [facility] VLDL CALCULATION 30 5 - 55 MG/DL 09/26/2019 8:03 PM T [facility] LIPID INTERPRETATION 09/26/2019 8:03 PM [address] [facility] Comment: NIH CONCENSUS REPORT RECOMMENDATIONS: [...] ?>=130 09/26/2019 1:52 PM CDT us Clara ISABEL LABORATORY Final Resul t [facility] [address] [place], [place] [address], * (ABNORMAL) CBC W/DIFF AUTOMATED (09/26/2019 1:52 PM CDT) WBC 11.6(H) 4.5 - 11.0 x10'3/uL 09/26/2019 7:44 PM [address] [facility] RBC 5.25 4.70 - 6.10 x10'6/uL 09/26/2019 7:44 PM CDT [facility] HGB 13.7(L) 14.0 - 18.0 G/DL 09/26/2019 7:44 PM CDT [facility] HCT 44.6 43.0 - 54.0 % 09/26/2019 7:44 PM [address] [facility] MCV 85.0 80.0 - 94.0 FL 09/26/2019 7:44 PM CDT [facility] MCH 26.1(L) 27.0 - 31.0 PG 09/26/2019 7:44 PM CDT [facility] MCHC 30.7(L) 32.0 - 36.0 G/DL 09/26/2019 7:44 PM CDT [facility] RDW 16.5(H) 11.5 - 14.5 % 09/26/2019 7:[address] [facility] PLT 298 130 - 400 x10'3/uL 09/26/2019 7:44 PM [address] [facility] MPV 12.4(H) 9.3 - 12.2 FL 09/26/2019 7:44 PM [address] [facility] DIFFERENTIAL TYPE AUTOMATED DIFFERENTIAL 09/26/2019 7:44 PM CDT [facility] NEUTROPHILS % 72.2 % 09/26/2019 7:44 PM CDT [facility] LYMPHOCYTES % 14.0 % 09/26/2019 7:44 PM CD[address] [facility] MONOCYTES % 8.7 % 09/26/2019 7:44 PM CDT [facility] EOSINOPHILS 3.9 % 09/26/2019 7:44 PM CDT [facility] BASOPHILS 0.6 % 09/26/2019 7:44 PM [address] [facility] IMMATURE GRANS % 0.6 % 09/26/19 20 7:44 [address] [facility] ABS. NEUTROPHILS TOTAL 8.34(H) 1.80 - 7.70 x10'3/uL 09/26/2019 7:[address] [facility] ABS. LYMPHOCYTES 1.62 1.00 - 4.80 x10'3/uL 09/26/2019 7:44 PM [address] [facility] ABS. MONOCYTES 1.00(H) 0.30 - 0.82 x10'3/uL 09/26/2019 7:44 PM [address] [facility] ABS. EOSINOPHILS 0.45 0.04 - 0.54 x10'3/uL 09/26/2019 7:44 PM [address] [facility] ABS. BASOPHILS 0.07 0.01 - 0.08 x10'3/uL 09/26/2019 7:44 PM CD[address] [facility] ABS. IMMATURE GRANULOCYTES 0.07 0.00 - 0.49 x10'3/uL 09/26/2019 7:[address] [facility] 09/26/2019 1:52 PM CDT Clara CARRINGTON LABORAT[facility] Final Resul t [facility] [address] [place] [address], documented in this encounter Visit Diagnoses Diagnosis Routine medical exam- Primary Routine general medical examination at a health care facility Essential hypertension Unspecified essential hypertension Morbid obesity (CMS/HCC HHS/HCC) Morbid obesity Mixed hyperlipidemia Depression with anxiety Dysthymic disorder High grade neuroendocrine carcinoma (CMS/HCC HHS/HCC) Malignant poorly differentiated neuroendocrine carcinoma, any site IIH (idiopathic intracranial hypertension) Benign intracranial hypertension Painful orthopaedic hardware (CMS/HCC)- Primary documented in this encounter Care Teams Advertising Copy Writer Relationship Specialty Start Date End Date Clara Stanley APNP [address] [place] [address] PCP - General NURSE PRACTITIONER 06/01/18 Dominick Mccloud MD [facility] [address] [place] [address] [place] Shampoo Assistant CARDIOVASCULAR DISEASE 03/28/19 documented as of this encounter
--- OUTSIDE RECORDS SUMMARY | 2024-03-02 03:22 | XMS_ITS | Encounter Summary ---
Author Organization [facility] Address [address] [place] [address]. [place], [place] [address] [place] [address] Care Team Providers Care Director Of Home Health Services Name Role Phone Clara Stanley Primary Care Provider [phone] Dominick Mccloud MD Unavailable [phone] Encounter Details Date Type Department Care Team (Latest Contact Info) Description 05/25/2019 Scan HEALTH INFO SRVCS Scanned, Documents Social [...] st Contact Info) Description 03/28/2024 7:30 AM SCHOOL COMMUNITY RELATIONS COORDINATOR Hospital Encounter [facility] [place] [address] Antwan Stone DPM [address], [place] [address] 03/28/2024 7:30 AM SCHOOL COMMUNITY RELATIONS COORDINATOR Anesthesia [place] [address] Shanelle Avila, BOILER MECHANIC [address] [place] [address] 03/28/2024 7:30 AM SCHOOL COMMUNITY RELATIONS COORDINATOR - 03/28/2024 8:48 AM SCHOOL COMMUNITY RELATIONS COORDINATOR Surgery [facility] [address] Antwan Stone, DPÁngel [address], [place] [address] REMOVAL OF HARDWARE LEFT FOOT 04/05/2024 8:30 AM SCHOOL COMMUNITY RELATIONS COORDINATOR Office Visit Darren Cardiovascular-O'F allon [facility] [address] [place] [address] Dominick Mccloud MD Three [facility]. [facility] [address] [place], [place] [address] Scheduled Procedures Name Priority Associated Diagnoses Date/Ti me REMOVAL PLATE SCREW OR PIN SCHED BY FAX 02/08/24 [facility] PHONE ASSESS 03/28/2024 7:30 AM SCHOOL COMMUNITY RELATIONS COORDINATOR documented as of this encounter Visit Diagnoses Not on filedocumented in this encounter Care Teams Director Of Home Health Services Relationship Specialty Start Date End Date Clara Stanley APNP [address] [place] [address] PCP - General NURSE PRACTITIONER 06/01/18 Dominick Mccloud MD Three [facility]. [facility] [address] [place], [place] [address] [place] Computer Support Technician CARDIOVASCULAR DISEASE 03/28/19 documented as of this encounter
--- OUTSIDE RECORDS SUMMARY | 2024-03-02 03:22 | XMS_ITS | Encounter Summary ---
Author Organization [facility] Address [address] [place] [address]. [place], [place] [address] [place] [address] Care Team Providers Care Production Welding Supervisor Name Role Phone Clara Stanley Primary Care Provider [phone] Dominick Mccloud MD Unavailable [phone] Reason for Visit * Reason Onset Date Comments Follow Up Call 08/11/2019 Encounter Details Date Type Department Care Team (Late st Contact Info) Description 08/11/2019 Telephone [facility] & Internal Medicine [facility] [address] [place] [address] Clara Stanley APNP [address] [place] [address] Follow Up Call Social History Tobacco Use Types Packs/Day Years [...] Progress Notes * Jadyn Riley MA - 08/11/2019 1:06 PM CDT Patient will call back and schedule at a later date * Tory Brown Marge - 08/11/2019 12:00 PM CDT Called patient to offer a hospital follow up, no answer left voicemail. documented in this encounter Plan of Treatment Upcoming Encounters Date Type Department Care Team (Late st Contact Info) Description 03/28/2024 7:30 AM RELAY CHECKER Hospital Encounter [facility] [place] [address] Antwan Stone, DIEGO [address], [place] [address] 03/28/2024 7:30 AM RELAY CHECKER Anesthesia Event [facility] [place] [address] Shanelle Avila, AUTOMOTIVE ACCESSORY INSTALLER [address] [place] [address] 03/28/2024 7:30 AM RELAY CHECKER - 03/28/2024 8:48 AM RELAY CHECKER Surgery [facility] [place] [address] Antwan Stone, DIEGO [address], [place] [address] REMOVAL OF HARDWARE LEFT FOOT 04/05/2024 8:30 AM RELAY CHECKER Office Visit Darren Chaudhari-O'F allon THREE [facility] [address] [place] [address] Dominick Mccloud MD Three [facility]. [facility] [address] [place] [address] Scheduled Procedures Name Priority Associated Diagnoses Date/Ti me REMOVAL PLATE SCREW OR PIN SCHED BY FAX 02/08/24 [facility] PHONE ASSESS 03/28/2024 7:30 AM RELAY CHECKER documented as of this encounter Visit Diagnoses Not on filedocumented in this encounter Care Teams Production Welding Supervisor Relationship Specialty Start Date End Date Clara Stanley APNP [address] [place] [address] PCP - General NURSE PRACTITIONER 06/01/18 Dominick Mccloud MD [facility] [address] [place] [address] Fely Cardiovascular Technologist CARDIOVASCULAR DISEASE 03/28/19 documented as of this encounter
--- OUTSIDE RECORDS SUMMARY | 2024-03-02 03:22 | XMS_ITS | Encounter Summary ---
Author Organization [facility] Address [address] [place] [address]. [place], [place] [address] [place] [address] Care Team Providers Care Diet Kitchen Cook Name Role Phone Clara Stanley Primary Care Provider [phone] Dominick Mccloud MD Unavailable [phone] Reason for Referral * Allergy Testing (Routine) - Closed Specialty Diagnoses / Procedures Referred By Contrebekah t Referred To Contact ALLERGY Diagnoses Allergies Clara Stanley APNP [address] [place] [address] Phone: tel: fax: Tyree Hall MD [address] [place] [address] Phone: tel: fax: Referral ID Status Reason Start Date Expiration Date V isits Requested Visits Authorized [id number] Closed Specialty Services 07/11/2019 08/09/2020 100 100 Reason for Visit * Reason Onset Date Comments Referral Request 07/11/2019 Encounter Details Date Type Department Care Team (Late st Contact Info) Description 07/11/2019 Telephone [facility] Family & Internal Medicine - [place] [address] [place] [address] Clara Stanley APNP [address] [place] [address] Referral Request Social History Tobacco Use Types Packs/Day Years Used Date Smoking Tobacco: Never Smokeless Tobacco: Never Alcohol Use Standard Drinks/Week Comments Yes 0 (1 standard drink = 0.6 oz pur e alcohol) 6 beers weekly AUDIT-C Answer Date Recorded Frequency of Alcohol Consumption 2-3 times a fiorella livingston 06/07/2018 Average Number of Drinks 1 or 2 019 Frequency of Binge Drinking Not on file 05/15 Sex and Gender Information Value Date Recorded Sex Assigned at Not on file Legal Sex Male 9:00 PM CDT Gender Identity Not on file Sexual Orientation Not on file documented as of this encounter Progress Notes * Estrellita Chi MA - 07/11/2019 4:17 PM CDT Patient contacted. Referral placed tn * ZEB Nunn - 07/11/2019 4:[address] tax advisor referral. * Anika Russell - 07/11/2019 3:53 PM CDT Pt is wanting a referral to tax advisor because he normally has really bad allergies and after lung cancer removal surgery the scars on back and side bother him when he is coughing and sneezing from the allergies. He said he has tried all of juan, Claritin, and zyrtec's. So he would like a specialist to help out. documented in this encounter Plan of Treatment Upcoming Encounters Date Type Department Care Team (Late st Contact Info) Description 03/28/2024 7:30 AM [facility] Hospital Encounter [facility] [place] [address] Antwan Stone DPM [address], [place] [address] 03/28/2024 7:30 AM OBIEE OBIA SOLUTION ARCHITECT Anesthesia Event [place] [address] Shanelle Avila, SUPERVISOR FINE GRADING 1 [place] [address] 03/28/2024 7:30 AM OBIEE OBIA SOLUTION ARCHITECT - 03/28/2024 8:48 AM OBIEE OBIA SOLUTION ARCHITECT Surgery [facility] [place] [address] Antwan Stone, DPM [address], [place] [address] REMOVAL OF HARDWARE LEFT FOOT 04/05/2024 8:30 AM OBIEE OBIA SOLUTION ARCHITECT Office Visit Darren Chaudhari-O'F allon THREE [facility] [address] [place] [address] Dominick Mccloud MD Three [facility] [address] [place] [address] Scheduled Procedures Name Priority Associated Diagnoses Date/Ti me REMOVAL PLATE SCREW OR PIN SCHED BY FAX 02/08/24 [facility] PHONE ASSESS 03/28/2024 7:30 AM OBIEE OBIA SOLUTION ARCHITECT Scheduled Referrals Name Type Priority Associated Diagnoses Orde r Schedule Ambulatory referral to Allergy Referral Routine Allergies Ordered: 07/11/2019 documented as of this encounter Visit Diagnoses Diagnosis Allergies- Primary Painful orthopaedic hardware (CMS/HCC)- Primary documented in this encounter Care Teams Diet Kitchen Cook Relationship Specialty Start Date End Date Clara Stanley APNP [address] [place] [address] PCP - General NURSE PRACTITIONER 06/01/18 Dominick Mccloud MD Three [facility] [address] [place] [address] [place] Non Destructive Testing Technician CARDIOVASCULAR DISEASE 03/28/19 documented as of this encounter
--- OUTSIDE RECORDS SUMMARY | 2024-03-02 03:22 | XMS_ITS | Encounter Summary ---
Author Organization [facility] Address [address] [place] [address]. [place], [place] [address] [place] [address] Care Team Providers Care Non Cdl Driver Name Role Phone Clara Stanley Primary Care Provider [phone] Dominick Mccloud MD Unavailable [phone] Reason for Visit * Reason Comments Pathology (SCAN) Encounter Details Date Type Department Care Team (Late Contact Info) Description 05/26/2019 Scan HEALTH INFO SRVCS Scanned, Documents Pathology (SCAN) Social History Tobacco Use Types Packs/Day [...] (Late Contact Info) Description 03/28/2024 7:30 AM [facility] Hospital Encounter [facility] [place] [address] Antwan Stone DPM [address] [place] [address] 03/28/2024 7:30 AM SCHOOL JANITOR Anesthesia Event [place] [address] Shanelle Avila, RESIDENTIAL SOLAR CONSULTANT [address] [place] [address] 03/28/2024 7:30 AM SCHOOL JANITOR - 03/28/2024 8:48 AM SCHOOL JANITOR Surgery [place] [address] Antwan Stone, DPM [address] [place] [address] REMOVAL OF HARDWARE LEFT FOOT 04/05/2024 8:30 AM SCHOOL JANITOR Office Visit Darren Chaudhari-O'F allon THREE [facility] [address] [place], [place] [address] Dominick Mccloud MD Three [facility]. [facility] [address] [place], [place] [address] Scheduled Procedures Name Priority Associated Diagnoses Date/Ti me REMOVAL PLATE SCREW OR PIN SCHED BY FAX 02/08/24 [facility] PHONE ASSESS 03/28/2024 7:30 AM SCHOOL JANITOR documented as of this encounter Procedures Procedure Name Priority Date/Time Associated Diagnosis Comments PATHOLOGY GENERIC (SCAN ORDER) Routine 05/26/2019 documented in this encounter Results * PATHOLOGY (05/26/2019) 05/26/2019 us Documents Scanned SCANNING Edited Result - Final [facility] ONBASE documented in this encounter Visit Diagnoses Not on filedocumented in this encounter Care Teams Non Cdl Driver Relationship Specialty Start Date End Date Clara Stanley APNP [address] [place] [address] PCP - General NURSE PRACTITIONER 06/01/18 Dominick Mccloud MD [facility] [address] [place] [address] [place] Lock Installer CARDIOVASCULAR DISEASE 03/28/19 documented as of this encounter
--- OUTSIDE RECORDS SUMMARY | 2024-03-02 03:22 | XMS_ITS | Encounter Summary ---
Author Organization [facility] Address [address] [place] [address]. [place], [place] [address] [place] [address] Care Team Providers Care Body Stylist Name Role Phone Clara Stanley Primary Care Provider [phone] Dominick Mccloud MD Unavailable [phone] Encounter Details Date Type Department Care Team (Latest Contact Info) Description 05/30/2019 Scan HEALTH INFO SRVCS Scanned, Documents Social [...] st Contact Info) Description 03/28/2024 7:30 AM PLATE MAKER ZINC Hospital Encounter [facility] [place] [address] Antwan Stone DPM [address], [place] [address] 03/28/2024 7:30 AM PLATE MAKER ZINC Anesthesia Event [facility] [place] [address] Shanelle Avila, DUMPER BULK SYSTEM [address] [place] [address] 03/28/2024 7:30 AM PLATE MAKER ZINC - 03/28/2024 8:48 AM PLATE MAKER ZINC Surgery [facility] [place] [address] Antwan Stone, DPÁngel [address], [place] [address] REMOVAL OF HARDWARE LEFT FOOT 04/05/2024 8:30 AM PLATE MAKER ZINC Office Visit [facility]-O'F all[facility] THREE [facility] [address] [place] [address] Dominick Mccloud MD Three [facility]. [facility] [address] [place], [place] [address] Scheduled Procedures Name Priority Associated Diagnoses Date/Ti me REMOVAL PLATE SCREW OR PIN SCHED BY FAX 02/08/24 [facility] PHONE ASSESS 03/28/2024 7:30 AM PLATE MAKER ZINC documented as of this encounter Visit Diagnoses Not on filedocumented in this encounter Care Teams Body Stylist Relationship Specialty Start Date End Date Clara Stanley APNP [address] [place] [address] PCP - General NURSE PRACTITIONER 06/01/18 Dominick Mccloud MD Three [facility]. [facility] [address] [place], [place] [address] Lannon Comber Fixer CARDIOVASCULAR DISEASE 03/28/19 documented as of this encounter
--- OUTSIDE RECORDS SUMMARY | 2024-03-02 03:22 | XMS_ITS | Encounter Summary ---
Author Organization [facility] Address [address] [place] [address]. [place] [address] [place] [address] Care Team Providers Care Instrument Technician Helper Name Role Phone Clara Stanley Primary Care Provider [phone] Dominick Mccloud MD Unavailable [phone] Reason for Visit * Reason Comments Image (SCAN) Encounter Details Date Type Department Care Team (Latest Contact Info) Description 06/14/2019 Scan HEALTH INFO SRVCS Scanned, Documents Image [...] [facility] Hospital Encounter [facility] [place] [address] Antwan Stone DPM [address], [place] [address] 03/28/2024 7:30 AM PROFESSOR OF RELIGIOUS STUDIES Anesthesia Event [place] [address] Shanelle Avila, PROGRAM ADVOCATE [address] [place] [address] 03/28/2024 7:30 AM PROFESSOR OF RELIGIOUS STUDIES - 03/28/2024 8:48 AM PROFESSOR OF RELIGIOUS STUDIES Surgery [place] [address] Antwan Stone, DPM [address], [place] [address] REMOVAL OF HARDWARE LEFT FOOT 04/05/2024 8:30 AM PROFESSOR OF RELIGIOUS STUDIES Office Visit Darren Chaudhari-O'F allon THREE [facility] [address] [place] [address] Dominick Mccloud MD Three [facility]. [facility] [address] [place] [address] Scheduled Procedures Name Priority Associated Diagnoses Date/Ti me REMOVAL PLATE SCREW OR PIN SCHED BY FAX 02/08/24 [facility] PHONE ASSESS 03/28/2024 7:30 AM PROFESSOR OF RELIGIOUS STUDIES documented as of this encounter Procedures Procedure Name Priority Date/Time Associated Diagnosis Comments IMAGE GENERIC Routine 06/14/2019 documented in this encounter Results * IMAGE STUDY (06/14/2019) Anatomical Region Laterality Modality Other us Documents Scanned SCANNING Edited Result - Final documented in this encounter Visit Diagnoses Not on filedocumented in this encounter Care Teams Instrument Technician Helper Relationship Specialty Start Date End Date Clara Stanley APNP [address] [place] [address] PCP - General NURSE PRACTITIONER 06/01/18 Dominick Mccloud MD [facility]. [facility] [address] [place] [address] [place] Retail Service Technician CARDIOVASCULAR DISEASE 03/28/19 documented as of this encounter
--- OUTSIDE RECORDS SUMMARY | 2024-03-02 03:22 | XMS_ITS | Encounter Summary ---
Author Organization [facility] Address [address] [place] [address]. [place] [address] [place] [address] Care Team Providers Care Eeg Technician Name Role Phone Clara Stanley Primary Care Provider [phone] Dominick Mccloud MD Unavailable [phone] Reason for Visit * Reason Comments Lab (SCAN) Encounter Details Date Type Department Care Team (Latest Contact Info) Description 08/22/2019 Scan HEALTH INFO SRVCS Scanned, Documents Lab (SCAN) Social History Tobacco Use Types Packs/Day [...] AM [facility] Hospital Encounter [facility] [place] [address] Antwan Stone DPM [address], [place] [address] 03/28/2024 7:30 AM DINING CHAIR SEAT CUSHION TRIMMER Anesthesia [place] [address] Shanelle Avila, HOME CARE MANAGER RN 1 [place] [address] 03/28/2024 7:30 AM DINING CHAIR SEAT CUSHION TRIMMER - 03/28/2024 8:48 AM DINING CHAIR SEAT CUSHION TRIMMER Surgery [place] [address] Antwan Stone, DPM [address] [place] [address] REMOVAL OF HARDWARE LEFT FOOT 04/05/2024 8:30 AM DINING CHAIR SEAT CUSHION TRIMMER Office Visit Darren Chaudhari-O'F allon THREE [facility] [address] [place] [address] Dominick Mccloud MD Three [facility]. [facility] [address] [place] [address] Scheduled Procedures Name Priority Associated Diagnoses Date/Ti me REMOVAL PLATE SCREW OR PIN SCHED BY FAX 02/08/24 [facility] PHONE ASSESS 03/28/2024 7:30 AM DINING CHAIR SEAT CUSHION TRIMMER documented as of this encounter Procedures Procedure Name Priority Date/Time Associated Diagnosis Comments OUTSIDE LAB (SCAN ORDER) Routine 08/22/2019 documented in this encounter Results * OUTSIDE LAB (08/22/2019) 08/22/2019 us Documents Scanned SCANNING Edited Result - Final [facility] ONBASE documented in this encounter Visit Diagnoses Not on filedocumented in this encounter Care Teams Eeg Technician Relationship Specialty Start Date End Date Clara Stanley APNP [address] [place] [address] PCP - General NURSE PRACTITIONER 06/01/18 Dominick Mccloud MD [facility] [address] [place] [address] Delancey Grain Buyer CARDIOVASCULAR DISEASE 03/28/19 documented as of this encounter
--- OUTSIDE RECORDS SUMMARY | 2024-03-02 03:22 | XMS_ITS | Encounter Summary ---
Author Organization [facility] Address [address] [place] [address]. [place] [address] [place] [address] Care Team Providers Care House Mover Name Role Phone Clara Stanley Primary Care Provider [phone] Dominick Mccloud MD Unavailable [phone] Reason for Visit * Reason Comments Image (SCAN) Encounter Details Date Type Department Care Team (Latest Contact Info) Description 06/28/2019 Scan HEALTH INFO SRVCS Scanned, Documents Image [...] Contact Info) Description 03/28/2024 7:30 AM [facility] Hospital Encounter [facility] [place] [address] Antwan Stone DPM [address] [place] [address] 03/28/2024 7:30 AM UTILIZATION COORDINATOR Anesthesia [place] [address] Shanelle Avila, LOBSTER MAN [address] [place] [address] 03/28/2024 7:30 AM UTILIZATION COORDINATOR - 03/28/2024 8:48 AM UTILIZATION COORDINATOR Surgery [place] [address] Antwan Stone, DPM [address], [address] [place] [address] REMOVAL OF HARDWARE LEFT FOOT 04/05/2024 8:30 AM UTILIZATION COORDINATOR Office Visit Darren Chaudhari-O'F allon THREE [facility] [address] [place] [address] Dominick Mccloud MD Three [facility]. [facility] [address] [place] [address] Scheduled Procedures Name Priority Associated Diagnoses Date/Ti me REMOVAL PLATE SCREW OR PIN SCHED BY FAX 02/08/24 [facility] PHONE ASSESS 03/28/2024 7:30 AM UTILIZATION COORDINATOR documented as of this encounter Procedures Procedure Name Priority Date/Time Associated Diagnosis Comments IMAGE GENERIC Routine 06/28/2019 documented in this encounter Results * IMAGE STUDY (06/28/2019) Anatomical Region Laterality Modality Other us Documents Scanned SCANNING Edited Result - Final documented in this encounter Visit Diagnoses Not on filedocumented in this encounter Care Teams House Mover Relationship Specialty Start Date End Date Clara Stanley APNP [address] [place] [address] PCP - General NURSE PRACTITIONER 06/01/18 Dominick Mccloud MD [facility]. [facility] [address] [place] [address] [employer] Sample Shoe Inspector And Reworker CARDIOVASCULAR DISEASE 03/28/19 documented as of this encounter
--- OUTSIDE RECORDS SUMMARY | 2024-03-02 03:22 | XMS_ITS | Encounter Summary ---
Author Organization [facility] Address [address] [place] [address]. [place], [place] [address] [place] [address] Care Team Providers Care Jewelry Engraver Name Role Phone Clara Stanley Primary Care Provider [phone] Dominick Mccloud MD Unavailable [phone] Encounter Details Date Type Department Care Team (Latest Contact Info) Description 06/28/2019 Scan HEALTH INFO SRVCS Scanned, Documents Social [...] st Contact Info) Description 03/28/2024 7:30 AM HOPPER OPERATOR Hospital Encounter [facility] [place] [address] Antwan Stone DPM [address], [place] [address] 03/28/2024 7:30 AM HOPPER OPERATOR Anesthesia Event [place] [address] Shanelle Avila, CLAIMS ADJUSTER CROP 1 [place] [address] 03/28/2024 7:30 AM HOPPER OPERATOR - 03/28/2024 8:48 AM HOPPER OPERATOR Surgery [place] [address] Antwan Stone, DPÁngel [address] [place] [address] REMOVAL OF HARDWARE LEFT FOOT 04/05/2024 8:30 AM HOPPER OPERATOR Office Visit [facility]-O'F all[facility] THREE [facility] [address] [place] [address] Dominick Mccloud MD Three [facility]. [facility] [address] [place], [place] [address] Scheduled Procedures Name Priority Associated Diagnoses Date/Ti me REMOVAL PLATE SCREW OR PIN SCHED BY FAX 02/08/24 [facility] PHONE ASSESS 03/28/2024 7:30 AM HOPPER OPERATOR documented as of this encounter Visit Diagnoses Not on filedocumented in this encounter Care Teams Jewelry Engraver Relationship Specialty Start Date End Date Clara Stanley APNP [address] [place] [address] PCP - General NURSE PRACTITIONER 06/01/18 Dominick Mccloud MD Three [facility]. [facility] [address] [place], [place] [address] [place] Assistant Community Manager CARDIOVASCULAR DISEASE 03/28/19 documented as of this encounter
--- OUTSIDE RECORDS SUMMARY | 2024-03-02 03:22 | XMS_ITS | Encounter Summary ---
Author Organization [facility] Address [address] [place] [address]. [place], [place] [address] [place] [address] Care Team Providers Care Granulator Operator Name Role Phone Clara Stanley Primary Care Provider [phone] Dominick Mccloud MD Unavailable [phone] Reason for Visit * Reason Onset Date Comments Medication 09/05/2019 Encounter Details Date Type Department Care Team (Late st Contact Info) Description 09/05/[address] [facility] Medical Group Family & Internal Medicine [facility] [address] [place] [address] Clara Stanley APNP [address] [place] [address] Medication Social History Tobacco Use Types Packs/Day Years [...] encounter Progress Notes * ZEB Nunn - 09/05/2019 3:11 PM CDT filled * Jadyn Riley MA - 09/05/2019 3:03 PM CDT Yes , pended for approval * ZEB Nunn - 09/05/2019 2:40 PM CDT Yes. That is fine. Does he need a refill right now? * Cris Yusuf - 09/05/2019 11:02 AM CDT Pt had surgery in May for lung cancer, asking if we will take over nerve pain med, gabapentin 300mg two to three times daily. He does not see surgeon until next month but would like us to take this over if possible. Uses [facility] documented in this encounter Plan of Treatment Upcoming Encounters Date Type Department Care Team (Late st Contact Info) Description 03/28/2024 7:30 AM CLOTH MERCERIZER OPERATOR Hospital Encounter [facility] [place] [address] Antwan Stone, DIEGO [address] [place], [place] [address] 03/28/2024 7:30 AM CLOTH MERCERIZER OPERATOR Anesthesia Event [facility] OR ONE [place], [place] [address] Shanelle Avila, SAND MILLER 1 [place] [address] 03/28/2024 7:30 AM CLOTH MERCERIZER OPERATOR - 03/28/2024 8:48 AM CLOTH MERCERIZER OPERATOR Surgery [facility] [place] [address] Antwan Stone DPM [address] [place] [address] REMOVAL OF HARDWARE LEFT FOOT 04/05/2024 8:30 AM CLOTH MERCERIZER OPERATOR Office Visit [facility] THREE [facility] [address] [place] [address] Dominick Mccloud MD [facility]. [facility] [address] [place], [place] [address] Scheduled Procedures Name Priority Associated Diagnoses Date/Ti me REMOVAL PLATE SCREW OR PIN SCHED BY FAX 02/08/24 [facility] PHONE ASSESS 03/28/2024 7:30 AM CLOTH MERCERIZER OPERATOR documented as of this encounter Visit Diagnoses Diagnosis Neuropathy- Primary Mononeuritis of unspecified site Painful orthopaedic hardware (CMS/HCC)- Primary documented in this encounter Care Teams Granulator Operator Relationship Specialty Start Date End Date Clara Stanley APNP [address] [place] [address] PCP - General NURSE PRACTITIONER 06/01/18 Domniick Mccloud MD [facility]. [facility] [address] [place], [place] [address] Vanduser Flight Reservations Manager CARDIOVASCULAR DISEASE 03/28/19 documented as of this encounter
--- OUTSIDE RECORDS SUMMARY | 2024-03-02 03:22 | XMS_ITS | Encounter Summary ---
Author Organization [facility] Address [address] [place] [address]. [place], [place] [address] [place] [address] Care Team Providers Care Nursing Home Assistant Name Role Phone Irwin Stanley Primary Care Provider [phone] Dominick Mccloud MD Unavailable [phone] Reason for Referral * Consultation (Routine) - Closed Specialty Diagnoses / Procedures Referred By Contac t Referred To Contact UNKNOWN PHYSICIAN SPECIALTY Diagnoses IIH (idiopathic intracranial hypertension) Irwin Stanley APNP [address] [place] [address] Phone: tel: fax: Nevin Marshall MD Referral ID Status Reason Start Date Expiration Date V isits Requested Visits Authorized [id number] Closed Specialty Services 06/30/2019 07/29/2020 99 99 Scheduling Instructions Insurance referral needed for Neuro system safety manager Dr Marshall for October 30 appt . Reason for Visit * Reason Onset Date Comments Referral 06/30/2019 Encounter Details Date Type Department Care Team (Late st Contact Info) Description 06/30/[address] [facility] Family [facility] Internal Medicine - [place] [address] [place] [address] Irwin Stanley APNP [address] [place] [address] Referral Social History Tobacco Use Types Packs/Day [...] Progress Notes * Jadyn Riley MA - 06/30/2019 1:35 PM CDT The patient called for a referral to the following physician: Is this a new consult:Yes Dr's name: Joanna Specialty: neuro ophthamology Reason for referral (diagnosis): [facility] Phone number unknown Fax number: [phone] Insurance: [employer] Appointment: 10/29/2019 Last office visit at this office: Last visit with IRWIN STANLEY in INTERNAL MEDICINE was on: 04/04/2019 in [facility] Future appointment scheduled: Future Appointments Date Time Provider Department Center 11/07/2019 10:15 AM [facility] documented in this encounter Plan of Treatment Upcoming Encounters Date Type Department Care Team (Late st Contact Info) Description 03/28/2024 7:30 AM PERSONAL BANKING OFFICER Hospital Encounter [facility] [place] [address] Antwan Stone DPM [address], [place] [address] 03/28/2024 7:30 AM PERSONAL BANKING OFFICER Anesthesia Event [facility] [place] [address] Shanelle Avila, CASHIER ASSISTANT [address] [place] [address] 03/28/2024 7:30 AM PERSONAL BANKING OFFICER - 03/28/2024 8:48 AM PERSONAL BANKING OFFICER Surgery [facility] [place] [address] Antwan Stone, DPM [address], [place] [address] REMOVAL OF HARDWARE LEFT FOOT 04/05/2024 8:30 AM PERSONAL BANKING OFFICER Office Visit [facility] THREE [facility], [facility] [address] [place] [address] Dominick Mccloud MD Three [facility]. [facility] [address] [place], [place] [address] Scheduled Procedures Name Priority Associated Diagnoses Date/Ti me REMOVAL PLATE SCREW OR PIN SCHED BY FAX 02/08/24 [facility] PHONE ASSESS 03/28/2024 7:30 AM PERSONAL BANKING OFFICER Scheduled Referrals Name Type Priority Associated Diagnoses Orde r Schedule Ambulatory referral to Other Referral Routine IIH (idiopathic intracranial hypertension) Ordered: 06/30/2019 documented as of this encounter Visit Diagnoses Diagnosis IIH (idiopathic intracranial hypertension)- Primary Benign intracranial hypertension Painful orthopaedic hardware (CMS/HCC)- Primary documented in this encounter Care Teams Nursing Home Assistant Relationship Specialty Start Date End Date Irwin Stanley APNP [address] [place] [address] PCP - General NURSE PRACTITIONER 06/01/18 Dominick Mccloud MD [facility]. [facility] [address] [place] [address] Newton Him Tech CARDIOVASCULAR DISEASE 03/28/19 documented as of this encounter
--- OUTSIDE RECORDS SUMMARY | 2024-03-02 03:22 | XMS_ITS | Encounter Summary ---
Author Organization [facility] Address [address] [place] [address]. [place] [address] [place] [address] Care Team Providers Care Senior Account Manager Name Role Phone Clara Stanley Primary Care Provider [phone] Dominick Mccloud MD Unavailable [phone] Reason for Visit * Reason Comments Image (SCAN) Encounter Details Date Type Department Care Team (Latest Contact Info) Description 07/05/2019 Scan HEALTH INFO SRVCS Scanned, Documents Image [...] AM [facility] Hospital Encounter [facility] [place] [address] Antwan Stone DPM [address], [place] [address] 03/28/2024 7:30 AM BLACK OXIDE COATING EQUIPMENT TENDER Anesthesia Event [place] [address] Shanelle Avila, RAILROAD DESIGN CONSULTANT [address] [place] [address] 03/28/2024 7:30 AM BLACK OXIDE COATING EQUIPMENT TENDER - 03/28/2024 8:48 AM BLACK OXIDE COATING EQUIPMENT TENDER Surgery [place] [address] Antwan Stone, DPM [address], [place] [address] REMOVAL OF HARDWARE LEFT FOOT 04/05/2024 8:30 AM BLACK OXIDE COATING EQUIPMENT TENDER Office Visit [facility]-O'F allon THREE [facility], [facility] [address] [place] [address] Dominick Mccloud MD Three [facility]. [facility] [address] [place] [address] Scheduled Procedures Name Priority Associated Diagnoses Date/Ti me REMOVAL PLATE SCREW OR PIN SCHED BY FAX 02/08/24 [facility] PHONE ASSESS 03/28/2024 7:30 AM BLACK OXIDE COATING EQUIPMENT TENDER documented as of this encounter Procedures Procedure Name Priority Date/Time Associated Diagnosis Comments IMAGE GENERIC Routine 07/05/2019 documented in this encounter Results * IMAGE STUDY (07/05/2019) Anatomical Region Laterality Modality Other us Documents Scanned SCANNING Edited Result - Final documented in this encounter Visit Diagnoses Not on filedocumented in this encounter Care Teams Senior Account Manager Relationship Specialty Start Date End Date Clara Stanley APNP [address] [place] [address] PCP - General NURSE PRACTITIONER 06/01/18 Dominick Mccloud MD [facility]. [facility] [address] [place] [address] [place] Sap Data Analyst CARDIOVASCULAR DISEASE 03/28/19 documented as of this encounter
--- OUTSIDE RECORDS SUMMARY | 2024-03-02 03:22 | XMS_ITS | Encounter Summary ---
Author Organization [facility] Address [address] [place] [address]. [place], [place] [address] [place] [address] Care Team Providers Care Design Quality Engineer Name Role Phone Clara Stanley Primary Care Provider [phone] Dominick Mccloud MD Unavailable [phone] Encounter Details Date Type Department Care Team (Latest Contact Info) Description 06/15/2019 Scan HEALTH INFO SRVCS Scanned, Documents Social [...] st Contact Info) Description 03/28/2024 7:30 AM GENERAL INSPECTOR Hospital Encounter [facility] [place] [address] Antwan Stone DPM [address], [place] [address] 03/28/2024 7:30 AM GENERAL INSPECTOR Anesthesia [place] [address] Shanelle Avila, PARALEGAL INSTRUCTOR 1 [place] [address] 03/28/2024 7:30 AM GENERAL INSPECTOR - 03/28/2024 8:48 AM GENERAL INSPECTOR Surgery [facility] [place] [address] Antwan Stone, DPÁngel [address], [place] [address] REMOVAL OF HARDWARE LEFT FOOT 04/05/2024 8:30 AM GENERAL INSPECTOR Office Visit [facility] THREE [facility], [facility] [address] [place] [address] Dominick Mccloud MD Three [facility]. [facility] [address] [place], [place] [address] Scheduled Procedures Name Priority Associated Diagnoses Date/Ti me REMOVAL PLATE SCREW OR PIN SCHED BY FAX 02/08/24 [facility] PHONE ASSESS 03/28/2024 7:30 AM GENERAL INSPECTOR documented as of this encounter Visit Diagnoses Not on filedocumented in this encounter Care Teams Design Quality Engineer Relationship Specialty Start Date End Date Clara Stanley APNP [address] [place] [address] PCP - General NURSE PRACTITIONER 06/01/18 Dominick Mccloud MD Three [facility]. [facility] [address] [place], [place] [address] [place] Dobby Loom Chain Pegger CARDIOVASCULAR DISEASE 03/28/19 documented as of this encounter
--- OUTSIDE RECORDS SUMMARY | 2024-03-02 03:22 | XMS_ITS | Encounter Summary ---
Author Organization [facility] Address [address] [place] [address]. [place], [place] [address] [place] [address] Care Team Providers Care Picking Belt Operator Name Role Phone Clara Stanley Primary Care Provider [phone] Dominick Mccloud MD Unavailable [phone] Encounter Details Date Type Department Care Team (Latest Contact Info) Description 09/26/2019 Travel Social History Tobacco Use Types Packs/Day [...] AM [facility] Hospital Encounter [facility] [place] [address] Antwan Stone DPM [address], [place] [address] 03/28/2024 7:30 AM DRIVER MEDIC Anesthesia Event [facility] [address] Shanelle Avila, MIDDLE SCHOOL VOLLEYBALL COACH [address] [place] [address] 03/28/2024 7:30 AM DRIVER MEDIC - 03/28/2024 8:48 AM DRIVER MEDIC Surgery [place] [address] Antwan Stone, DPÁngel [address], [place], [place] [address] REMOVAL OF HARDWARE LEFT FOOT 04/05/2024 8:30 AM DRIVER MEDIC Office Visit [place] [facility] THREE [facility], [facility] [address] [place], [place] [address] Dominick Mccloud MD Three [facility]. [facility] [address] [place], [place] [address] Scheduled Procedures Name Priority Associated Diagnoses Date/Ti me REMOVAL PLATE SCREW OR PIN SCHED BY FAX 02/08/24 [facility] PHONE ASSESS 03/28/2024 7:30 AM DRIVER MEDIC documented as of this encounter Visit Diagnoses Not on filedocumented in this encounter Care Teams Picking Belt Operator Relationship Specialty Start Date End Date Clara Stanley APNP [address] [place] [address] PCP - General NURSE PRACTITIONER 06/01/18 Dominick Mccloud MD Three [facility]. [facility] [address] [place], [place] [id number] Fely Axle Turner CARDIOVASCULAR DISEASE 03/28/19 documented as of this encounter
--- OUTSIDE RECORDS SUMMARY | 2024-03-02 03:23 | XMS_ITS | Encounter Summary ---
Author Organization [facility] Address [address] [place] [address]. [place], [place] [address] [place] [address] Care Team Providers Care Laundry Tech Name Role Phone Clara Stanley Primary Care Provider [phone] Dominick Mccloud MD Unavailable [phone] Encounter Details Date Type Department Care Team (Latest Contact Info) Description 04/08/2019 6:30 PM HOGSHEAD INSPECTOR - 04/08/2019 11:59 PM [facility] Hospital Encounter [facility] [place] [address] Yakov Bello MD [address] [place] [address] Discharge Disposition: Home or Self Care (Routine [...] on file documented as of this encounter Medications at Time of Discharge cetirizine (ZYRTEC) 10 MG tablet Take 1 tablet (10 mg total) by mouth daily. 5 acetaZOLAMIDE ER 500 MG 12 hr capsuleIndications: intercranial hypertension Take 500 mg by mouth 2 (two) times daily. Indications: intercranial hypertension 0 03/28/19 21 amlodipine 10 MG tabletIndications:H ypertension, benign Take 1 tablet (10 mg total) by mouth daily. 90 tablet 3 9 08/03/19 20 cyclobenzaprine 10 MG tabletIndications:A cute bilateral low back pain without sciatica Take 1 tablet (10 mg total) by mouth 3 (three) times daily as needed for Muscle Spasms. 30 tablet 0 04/11/19 20 ondansetron 4 MG disintegrating tablet Take 1 tablet (4 mg total) by mouth every 8 (eight) hours as needed for Nausea. 10 tablet 0 04/28/19 20 pravastatin 20 MG tabletIndications:M ixed hyperlipidemia Take 1 tablet (20 mg total) by mouth nightly at bedtime. 90 tablet 3 9 08/03/19 20 ranitidine 150 MG capsuleIndications: Abdominal bloating Take 1 capsule (150 mg total) by mouth 2 (two) times daily. 60 capsule 1 0 09/26/19 20 zolpidem (AMBIEN) 10 MG tabletIndications:I nsomnia, unspecified type Take 1 tablet (10 mg total) by mouth nightly as needed for Sleep. 15 tablet 0 05/01/19 20 documented as of this encounter Plan of Treatment Upcoming Encounters Date Type Department Care Team (Late st Contact Info) Description 03/28/2024 7:30 AM [facility] Hospital Encounter [facility] [place] [address] Antwan Stone DPM [address], [place] [address] 03/28/2024 7:30 AM [facility] Anesthesia [place] [address] Shanelle Avila, BRIDGE REPAIR CREW PERSON [address] [place] [address] 03/28/2024 7:30 AM HOGSHEAD INSPECTOR - 03/28/2024 8:48 AM HOGSHEAD INSPECTOR Surgery [facility] [place] [address] Antwan Stone, DPM [address], [place] [address] REMOVAL OF HARDWARE LEFT FOOT 04/05/2024 8:30 AM HOGSHEAD INSPECTOR Office Visit Dar[facility] Hernandez'Marbella allon THREE [place], [facility] [address] [place] [address] Dominick Mccloud MD Three [facility]. [facility] [address] [place] [address] Scheduled Procedures Name Priority Associated Diagnoses Date/Ti me REMOVAL PLATE SCREW OR PIN SCHED BY FAX 02/08/24 [facility] PHONE ASSESS 03/28/2024 7:30 AM HOGSHEAD INSPECTOR documented as of this encounter Procedures Procedure Name Priority Date/Time Associated Diagnosis Comments COMPREHENSIVE METABOLIC PANEL Routine 04/08/2019 11:51 AM HOGSHEAD INSPECTOR Left upper quadrant pain C-REACTIVE PROTEIN Routine 04/08/2019 11 :51 AM HOGSHEAD INSPECTOR Left upper quadrant pain CBC W/DIFF AUTOMATED Routine 04/08/2019 11:51 AM HOGSHEAD INSPECTOR Left upper quadrant pain AMYLASE Routine 04/08/2019 11:51 AM HOGSHEAD INSPECTOR Left upper quadrant pain LIPASE Routine 04/08/2019 11:51 AM HOGSHEAD INSPECTOR Left upper quadrant pain documented in this encounter Results * (ABNORMAL) CBC W/DIFF AUTOMATED (04/08/2019 11:51 AM HOGSHEAD INSPECTOR) [facility] Signature WBC 10.2 4.5 - 11.0 x10'3/uL 04/08/2019 8:22 PM [facility] RBC 5.05 4.70 - 6.10 x10'6/uL 04/08/2019 8:22 PM [facility] HGB 14.1 14.0 - 18.0 G/DL 04/08/2019 8:22 PM [facility] HCT 43.5 43.0 - 54.0 % 04/08/2019 8:22 PM [facility] MCV 86.1 80.0 - 94.0 FL 04/08/2019 8:22 PM [facility] MCH 27.9 27.0 - 31.0 PG 04/08/2019 8:22 PM [facility] MCHC 32.4 32.0 - 36.0 G/DL 04/08/2019 8:22 PM [facility] RDW 13.2 11.5 - 14.5 % 04/08/2019 8:22 PM [facility] PLT 298 130 - 400 x10'3/uL 04/08/2019 8:22 PM [facility] MPV 11.8 9.3 - 12.2 FL 04/08/2019 8:22 PM [facility] DIFFERENTIAL TYPE AUTOMATED DIFFERENTIAL 04/08/2019 8:22 PM [facility] NEUTROPHILS % 72.9 % 04/08/2019 8:22 PM [facility] LYMPHOCYTES % 14.8 % 04/08/2019 8:22 PM [facility] MONOCYTES % 9.0 % 04/08/2019 8:22 PM [facility] EOSINOPHILS 2.4 % 04/08/2019 8:22 PM [facility] BASOPHILS 0.5 % 04/08/2019 8:22 PM HOGSHEAD INSPECTOR [facility] IMMATURE GRANS % 0.4 % 04/08/19 20 8:22 PM [facility] ABS. NEUTROPHILS TOTAL 7.41 1.80 - 7.70 x10'3/uL 04/08/2019 8:22 PM HOGSHEAD INSPECTOR [facility] ABS. LYMPHOCYTES 1.50 1.00 - 4.80 x10'3/uL 04/08/2019 8:22 PM HOGSHEAD INSPECTOR [facility] ABS. MONOCYTES 0.91(H) 0.30 - 0.82 x10'3/uL 04/08/2019 8:22 PM HOGSHEAD INSPECTOR [facility] ABS. EOSINOPHILS 0.24 0.04 - 0.54 x10'3/uL 04/08/2019 8:22 PM [facility] ABS. BASOPHILS 0.05 0.01 - 0.08 x10'3/uL 04/08/2019 8:22 PM [facility] ABS. IMMATURE GRANULOCYTES 0.04 0.00 - 0.49 x10'3/uL 04/08/2019 8:22 PM HOGSHEAD INSPECTOR [facility] 04/08/2019 11:5 1 AM HOGSHEAD INSPECTOR Yakov Bello MD LABORATORY Final Result [facility] [address] [place] [address], * AMYLASE (04/08/2019 11:51 AM HOGSHEAD INSPECTOR) AMYLASE S/P/B 28 25 - 115 UNITS/L 04/08/2019 8:38 PM HOGSHEAD INSPECTOR [facility] 04/08/2019 11:5 1 AM HOGSHEAD INSPECTOR us Yakov Bello MD LABORATORY Final Result [facility] [address] [place] [address], [place] [phone] * LIPASE (04/08/2019 11:51 AM HOGSHEAD INSPECTOR) LIPASE 120 73 - 393 UNITS/L 04/08/2019 8:38 PM HOGSHEAD INSPECTOR [facility] 04/08/2019 11:5 1 AM HOGSHEAD INSPECTOR us Yakov Bello MD LABORATORY Final Result Performing Organization Address City/[facility] Co de Phone Number [facility] [address] [place] [address], [place] [phone] * (ABNORMAL) C-REACTIVE PROTEIN (04/08/2019 11:51 AM HOGSHEAD INSPECTOR) C-REACTIVE PROTEIN 0.31(H) <0.29 mg/dL 04/08/2019 8:38 PM HOGSHEAD INSPECTOR [facility] 04/08/2019 11:5 1 AM HOGSHEAD INSPECTOR us Yakov Bello MD LABORATORY Final Result Performing Organization Address City/[facility]/ZIP Co de Phone Number [facility] [address] [place] [address], [place] [phone] * (ABNORMAL) COMPREHENSIVE METABOLIC PANEL (04/08/2019 11:51 AM HOGSHEAD INSPECTOR) GLUCOSE 90 70 - 99 MG/DL 04/08/2019 8:38 PM HOGSHEAD INSPECTOR [facility] BUN 12 7 - 18 MG/DL 04/08/2019 8:38 PM HOGSHEAD INSPECTOR [facility] CREATININE S/P/B 0.82 0.7 - 1.3 MG/DL 04/08/2019 8:38 PM [facility] SODIUM S/P/B 134(L) 136 - 145 MMOL/L 04/08/2019 8:38 PM [facility] POTASSIUM S/P/B 4.1 3.5 - 5.1 MMOL/L 04/08/2019 8:38 PM [facility] CHLORIDE S/P/B 105 100 - 108 MMOL/L 04/08/2019 8:38 PM [facility] CO2 21.4 21 - 32 MMOL/L 04/08/2019 8:38 PM [facility] CALCIUM S/P/B 9.5 8.5 - 10.1 MG/DL 04/08/2019 8:38 PM [facility] BILIRUBIN TOTAL S/P/B 0.3 0.2 - 1.2 MG/DL 04/08/2019 8:38 PM [facility] TOTAL PROTEIN S/P/B 7.6 6.4 - 8.2 G/DL 04/08/2019 8:38 PM [facility] ALBUMIN S/P/B 4.0 3.4 - 5.0 G/DL 04/08/2019 8:38 PM [facility] AST 20 15 - 37 U/L 04/08/2019 8:38 PM [facility] ALT 31 16 - 60 U/L 04/08/2019 8:38 PM [facility] ALKALINE PHOSPHATASE S/P/B 79 50 - 136 U/L 04/08/2019 8:38 PM [facility] ANION GAP 7.6 5 - 15 MMOL/L 04/08/2019 8:38 PM [facility] BUN CREATININE RATIO 14.6 6 - 26 04/08/2019 8:38 PM [facility] A/G RATIO 1.1 1.0 - 2.0 RATIO 04/08/2019 8:38 PM HOGSHEAD INSPECTOR [facility] EGFR NON-AFR. AMER. >90 >90 ML/MIN/1.7 3 M2 04/08/2019 8:38 PM HOGSHEAD INSPECTOR [facility] EGFR AFR. AMER. >90 >90 ML/MIN/1.7 3 M2 04/08/2019 8:38 PM HOGSHEAD INSPECTOR [facility] Comment: NOTE: eGFR is not calculated for patients <18 years of age. This is an estimated GFR (CKD EPI) and should not be used for calculating drug doses. 04/08/2019 11:5 1 AM HOGSHEAD INSPECTOR us Yakov Bello MD LABORATORY Final Result [facility] [address] [place] [address], [place] [phone] documented in this encounter Visit Diagnoses Diagnosis Left upper quadrant pain Abdominal pain, left upper quadrant Painful orthopaedic hardware (CMS/HCC)- Primary documented in this encounter Care Teams Laundry Tech Relationship Specialty Start Date End Date Clara Stanley APNP [address] [place] [address] PCP - General NURSE PRACTITIONER 06/01/18 Dominick Mccloud MD Three [facility]. [facility] [address] [place] [address] [place] Angular Developer CARDIOVASCULAR DISEASE 03/28/19 documented as of this encounter
--- OUTSIDE RECORDS SUMMARY | 2024-03-02 03:23 | XMS_ITS | Encounter Summary ---
Author Organization [facility] Address [address] [place] [address]. [place], [place] [address] [place] [address] Care Team Providers Care Structural Steel Equipment Erector Name Role Phone Clara Stanley Primary Care Provider [phone] Dominick Mccloud MD Unavailable [phone] Reason for Visit * Reason Onset Date Comments Appointment Request 04/11/2019 Encounter Details Date Type Department Care Team (Late st Contact Info) Description 04/11/2019 Telephone [facility] Multispecialty Care - [facility] [address] [facility] [address] [place] [id number] Hector Delgado MD [address] [facility] [address] [place], [place] [phone] Appointment Request Social History Tobacco Use Types Packs/Day [...] as of this encounter Progress Notes * Meli Cardenas - 04/11/2019 9:05 AM CST Patient's called and said was seen in the ER Thursday and is in a lot of pain. ER doctor spoke with Dr Delgado and was told for the patient to be seen today. Patient has had a CT and ultrasound of the abdomen. would like a return call. NT ENGINEER documented in this encounter Plan of Treatment Upcoming Encounters Date Type Department Care Team (Late st Contact Info) Description 03/28/2024 7:30 AM TALENT ENGINEER Hospital Encounter [facility] [place] [address] Antwan Stone, DIEGO [address], [place] [address] 03/28/2024 7:30 AM TALENT ENGINEER Anesthesia Event [facility] [place] [address] Shanelle Avila, PROFESSIONAL POKER PLAYER [address] [place] [address] 03/28/2024 7:30 AM TALENT ENGINEER - 03/28/2024 8:48 AM TALENT ENGINEER Surgery [facility] [place] [address] Antwan Stone DPM [address], [place] [address] REMOVAL OF HARDWARE LEFT FOOT 04/05/2024 8:30 AM TALENT ENGINEER Office Visit Darren Chaudhari-O'F allon THREE [facility] [address] [place] [address] Dominick Mccloud MD Three [facility]. [facility] [address] [place] [address] Scheduled Procedures Name Priority Associated Diagnoses Date/Ti me REMOVAL PLATE SCREW OR PIN SCHED BY FAX 02/08/24 [facility] PHONE ASSESS 03/28/2024 7:30 AM TALENT ENGINEER documented as of this encounter Visit Diagnoses Not on filedocumented in this encounter Care Teams Structural Steel Equipment Erector Relationship Specialty Start Date End Date Clara Stanley APNP [address] [place] [address] PCP - General NURSE PRACTITIONER 06/01/18 Dominick Mccloud MD [facility] [address] [place] [address] Fely Break Up Worker CARDIOVASCULAR DISEASE 03/28/19 documented as of this encounter
--- OUTSIDE RECORDS SUMMARY | 2024-03-02 03:23 | XMS_ITS | Encounter Summary ---
Author Organization [facility] Address [address] [place] [address]. [place], [place] [address] [place] [address] Care Team Providers Care Health Occupations Teacher Name Role Phone Clara Stanley Primary Care Provider +1 [phone] Dominick Mccloud MD Unavailable [phone] Encounter Details Date Type Department Care Team (Latest Contact Info) Description 04/07/2019 Scan HEALTH INFO SRVCS Scanned, Documents Social [...] st Contact Info) Description 03/28/2024 7:30 AM LABORER EGG PRODUCING FARM Hospital Encounter [facility] [place] [address] Antwan Stone DPM [address], [place] [address] 03/28/2024 7:30 AM LABORER EGG PRODUCING FARM Anesthesia Event [place] [address] Shanelle Avila, HEADEND TECHNICIAN 1 [place] [address] 03/28/2024 7:30 AM LABORER EGG PRODUCING FARM - 03/28/2024 8:48 AM LABORER EGG PRODUCING FARM Surgery [place] [address] Antwan Stone, DPÁngel [address], [place] [address] REMOVAL OF HARDWARE LEFT FOOT 04/05/2024 8:30 AM LABORER EGG PRODUCING FARM Office Visit [facility] all[facility] THREE [facility], [facility] [address] [place] [address] Dominick Mccloud MD Three [facility]. [facility] [address] [place], [place] [address] Scheduled Procedures Name Priority Associated Diagnoses Date/Ti me REMOVAL PLATE SCREW OR PIN SCHED BY FAX 02/08/24 [facility] PHONE ASSESS 03/28/2024 7:30 AM LABORER EGG PRODUCING FARM documented as of this encounter Visit Diagnoses Not on filedocumented in this encounter Care Teams Health Occupations Teacher Relationship Specialty Start Date End Date Clara Stanley APNP [address] [place] [address] PCP - General NURSE PRACTITIONER 06/01/18 Dominick Mccloud MD Three [facility]. [facility] [address] [place], [place] [address] [place] Catalogue Compiler CARDIOVASCULAR DISEASE 03/28/19 documented as of this encounter
--- OUTSIDE RECORDS SUMMARY | 2024-03-02 03:23 | XMS_ITS | Encounter Summary ---
Author Organization [facility] Address [address] [place] [address]. [place], [place] [address] [place] [address] Care Team Providers Care Hand Mounter Name Role Phone Clara Stanley Primary Care Provider [phone] [phone] Dominick Mccloud MD Unavailable [phone] Encounter Details Date Type Department Care Team (Latest Contact Info) Description 05/12/2019 Scan HEALTH INFO SRVCS Scanned, Documents Social [...] st Contact Info) Description 03/28/2024 7:30 AM SPLASH LINE OPERATOR Hospital Encounter [facility] [place] [address] Antwan Stone DPM [address], [place] [address] 03/28/2024 7:30 AM SPLASH LINE OPERATOR Anesthesia Event [place] [address] Shanelle Avila, INSTRUCTIONAL AIDE 1 [place] [address] 03/28/2024 7:30 AM SPLASH LINE OPERATOR - 03/28/2024 8:48 AM SPLASH LINE OPERATOR Surgery [place] [address] Antwan Stone, DPÁngel [address], [place] [address] REMOVAL OF HARDWARE LEFT FOOT 04/05/2024 8:30 AM SPLASH LINE OPERATOR Office Visit [facility]-O'F allon THREE [facility], [facility] [place] [address] [place] [address] Dominick Mccloud MD Three [facility]. [facility] [place] [address] [place], [place] [address] Scheduled Procedures Name Priority Associated Diagnoses Date/Ti me REMOVAL PLATE SCREW OR PIN SCHED BY FAX 02/08/24 [facility] PHONE ASSESS 03/28/2024 7:30 AM SPLASH LINE OPERATOR documented as of this encounter Visit Diagnoses Not on filedocumented in this encounter Care Teams Hand Mounter Relationship Specialty Start Date End Date Clara Stanley APNP [address] [place] [address] PCP - General NURSE PRACTITIONER 06/01/18 Dominick Mccloud MD Three [facility]. [facility] [place] [address] [place], [place] [address] [place] Senior Staff Psychologist CARDIOVASCULAR DISEASE 03/28/19 documented as of this encounter
--- OUTSIDE RECORDS SUMMARY | 2024-03-02 03:23 | XMS_ITS | Encounter Summary ---
Author Organization [facility] Address [address] [place] [address]. [place], [place] [address] [place] [address] Care Team Providers Care Shovel Oiler Name Role Phone Clara Stanley Primary Care Provider [phone] Dominick Mccloud MD Unavailable [phone] Reason for Visit * Reason Onset Date Comments Orders 04/07/2019 Encounter Details Date Type Department Care Team (Late st Contact Info) Description 04/07/[address] [facility] Family [facility] Internal Medicine [facility] [address] [place] [phone] Clara Stanley APNP [address] [place] [address] Orders Social History Tobacco Use Types Packs/Day Years [...] encounter Progress Notes * ZEB Nunn - 04/07/2019 12:38 PM CST I was able to speak with Deb at the referral Center who agreed to call and arrange this [id number] for me. She did attempt to call and schedule a peer to peer but was told that at this time a peer to peer was not available but we are able to resubmit a request for further review. COUNTER * Jadyn Riley MA - 04/07/2019 8:59 AM CST Note ----- Message ----- From: Deb Goode Sent: 04/05/2019 9:35 AM To: ZEB Nunn, Clara Reed Nurse, * Subject: Denial ? The request for prior authorization of CT abdomen/pelvis, that was completed STAT, on 04/04 was denied. Per [employer], Based on [employer] Abdomen Imaging Guidelines, we cannot approve this request. Guidelines support plain x-rays of the abdomen as the initial study in individuals with suspected bowel ob struction. A CT of the abdomen and pelvis with contrast is supported for plain x-rays that are abnormal or equivocal or for a high index of suspicion for bowel obstruction in individuals with prior history of abdominal surgery, history of malignancy, or individuals with current hernias. The clinical information provided does not meet these criteria and, therefore, the request is not indicated at this time. ?? A [id number] can be scheduled by calling [phone], option 4, case #[id number]. ?? Thank you. ?? COUNTER documented in this encounter Plan of Treatment Upcoming Encounters Date Type Department Care Team (Late st Contact Info) Description 03/28/2024 7:30 AM HOG COUNTER Hospital Encounter [facility] [address] Antwan Stone DPM [address], [place] [address] 03/28/2024 7:30 AM HOG COUNTER Anesthesia [place] [address] Shanelle Avila, IN HOME BABY SITTER [address] [place] [address] 03/28/2024 7:30 AM HOG COUNTER - 03/28/2024 8:48 AM HOG COUNTER Surgery [place] [address] Antwan Stone, DPÁngel [address], [place] [address] REMOVAL OF HARDWARE LEFT FOOT 04/05/2024 8:30 AM HOG COUNTER Office Visit [facility] Cardiovascular-O'F allon THREE [facility], [facility] [address] [place], [place] [address] Dominick Mccloud MD Three [facility]. [facility] [address] [place], [place] [address] Scheduled Procedures Name Priority Associated Diagnoses Date/Ti me REMOVAL PLATE SCREW OR PIN SCHED BY FAX 02/08/24 [facility] PHONE ASSESS 03/28/2024 7:30 AM HOG COUNTER documented as of this encounter Visit Diagnoses Not on filedocumented in this encounter Care Teams Shovel Oiler Relationship Specialty Start Date End Date Clara Stanley APNP [address] [place] [address] PCP - General NURSE PRACTITIONER 06/01/18 Dominick Mccloud MD Three [facility]. [facility] [address] [place], [place] [address] [place] Air Pollution Specialist CARDIOVASCULAR DISEASE 03/28/19 documented as of this encounter
--- OUTSIDE RECORDS SUMMARY | 2024-03-02 03:23 | XMS_ITS | Encounter Summary ---
Author Organization [facility] Address [address] [place] [address]. [place] [address] [place] [address] Care Team Providers Care Baby Formula Worker Name Role Phone Clara Stanley Primary Care Provider [phone] Dominick Mccloud MD Unavailable [phone] Reason for Visit * Reason Comments CT (SCAN) Encounter Details Date Type Department Care Team (Latest Contact Info) Description 05/03/2019 Scan HEALTH INFO SRVCS Scanned, Documents CT [...] AM [facility] Hospital Encounter [facility] [place] [address] Antwan Stone DPM [address], [place] [address] 03/28/2024 7:30 AM RODEO PERFORMER Anesthesia Event [facility] [place] [address] Shanelle Avila, BOLT SAWYER [address] [place] [address] 03/28/2024 7:30 AM RODEO PERFORMER - 03/28/2024 8:48 AM RODEO PERFORMER Surgery [facility] [address] Antwan Stone, DPM [address], [place] [address] REMOVAL OF HARDWARE LEFT FOOT 04/05/2024 8:30 AM RODEO PERFORMER Office Visit Darren Chaudhari-O'F allon THREE [facility], [facility] [address] [place] [address] Dominick Mccloud MD Three [facility]. [facility] [address] [place] [address] Scheduled Procedures Name Priority Associated Diagnoses Date/Ti me REMOVAL PLATE SCREW OR PIN SCHED BY FAX 02/08/24 [facility] PHONE ASSESS 03/28/2024 7:30 AM RODEO PERFORMER documented as of this encounter Procedures Procedure Name Priority Date/Time Associated Diagnosis Comments CT GENERIC Routine 05/03/2019 documented in this encounter Results * CT (05/03/2019) Anatomical Region Laterality Modality Other us Documents Scanned SCANNING Final Result documented in this encounter Visit Diagnoses Not on filedocumented in this encounter Care Teams Baby Formula Worker Relationship Specialty Start Date End Date Clara Stanley APNP [address] [place] [address] PCP - General NURSE PRACTITIONER 06/01/18 Dominick Mccloud MD Three [facility]. [facility] [address] [place] [address] [place] Irrigation Service Technician CARDIOVASCULAR DISEASE 03/28/19 documented as of this encounter
--- OUTSIDE RECORDS SUMMARY | 2024-03-02 03:23 | XMS_ITS | Encounter Summary ---
Author Organization [facility] Address [address] [place] [address]. [place], [place] [address] [place] [address] Care Team Providers Care Manuscript Editor Name Role Phone Clara Stanley Primary Care Provider [phone] Dominick Mccloud MD Unavailable [phone] Reason for Referral * Imaging (Urgent) - Closed Specialty Diagnoses / Procedures Referred By Contac t Referred To Contact RADIOLOGY Diagnoses Left upper quadrant pain Procedures US ABD COMPLETE Yakov Bello MD [address] [place] [address] Phone: tel: fax: Referral ID Status Reason Start Date Expiration Date Visits Re quested Visits Authorized [id number] Closed 04/07/2019 05/08/2020 1 1 CTIOUS DISEASE PHYSICIAN Reason for Visit * Imaging (Urgent) - Closed Specialty Diagnoses / Procedures Referred By Contac t Referred To Contact RADIOLOGY Diagnoses Left upper quadrant pain Procedures US ABD COMPLETE Yakov Bello MD [address] [place] [address] Phone: tel: fax: Referral ID Status Reason Start Date Expiration Date Visits Re quested Visits Authorized [id number] Closed 04/07/2019 05/08/2020 1 1 Encounter Details Date Type Department Care Team (Latest Contact Info) Description 04/09/2019 1:35 PM INFECTIOUS DISEASE PHYSICIAN - 04/09/2019 3:41 PM INFECTIOUS DISEASE PHYSICIAN Hospital Encounter [facility] [address] Yakov Bello MD [address] [place] [address] Discharge Disposition: Home or Self Care (Routine [...] 05/01/19 20 documented as of this encounter Progress Notes * Yakov Bello MD - 04/09/2019 3:41 PM CST Abdominal ultrasound is normal. CTIOUS DISEASE PHYSICIAN documented in this encounter Plan of Treatment Upcoming Encounters Date Type Department Care Team (Late st Contact Info) Description 03/28/2024 7:30 AM INFECTIOUS DISEASE PHYSICIAN Hospital Encounter [facility] [place] [address] Antwan Stone DPM [address], [place] [address] 03/28/2024 7:30 AM INFECTIOUS DISEASE PHYSICIAN Anesthesia Event [place] [address] Shanelle Avila, JUNIOR ASSISTANT MANAGER 1 [place] [address] 03/28/2024 7:30 AM INFECTIOUS DISEASE PHYSICIAN - 03/28/2024 8:48 AM INFECTIOUS DISEASE PHYSICIAN Surgery [place] [address] Antwan Stone DPM [address], [place] [address] REMOVAL OF HARDWARE LEFT FOOT 04/05/2024 8:30 AM INFECTIOUS DISEASE PHYSICIAN Office Visit [facility] [facility] THREE [facility], [place] [address] [place] [address] Dominick Mccloud MD Three [facility]. [facility] [address] [place] [address] Scheduled Procedures Name Priority Associated Diagnoses Date/Ti me REMOVAL PLATE SCREW OR PIN SCHED BY FAX 02/08/24 [facility] PHONE ASSESS 03/28/2024 7:30 AM INFECTIOUS DISEASE PHYSICIAN documented as of this encounter Procedures Procedure Name Priority Date/Time Associated Diagnosis Comments US ABD COMPLETE ANAYELI 04/09/2019 2:40 PM INFECTIOUS DISEASE PHYSICIAN Left upper quadrant pain documented in this encounter Results * US ABD COMPLETE (04/09/2019 2:40 PM INFECTIOUS DISEASE PHYSICIAN) Anatomical Region Laterality Modality Abdomen Ultrasound 04/09/2019 5:00 PM INFECTIOUS DISEASE PHYSICIAN Impressions 04/09/2019 5:03 PM INFECTIOUS DISEASE PHYSICIAN IMPRESSION: No acute abnormality identified. Interpreted By: Gordon Tolentino MD, 04/09/2019 5:00 PM Narrative 04/09/2019 5:03 PM INFECTIOUS DISEASE PHYSICIAN EXAMINATION: US ABD COMPLETE HISTORY: Upper quadrant pain DATE: 04/09/2019 1:36 PM COMPARISON: CT 04/04/2019 TECHNIQUE: Sonographic evaluation of the abdomen FINDINGS: Right kidney measures 10.1 cm in length and the left kidney measures 12.5 cm in length. ??No renal mass, cyst or stone. ??No hydronephrosis. Liver is unremarkable. ??Gallbladder is unremarkable. ??No cholelithiasis or wall thickening. ??Common bile duct normal caliber at 6 mm. ??No intrahepatic bile duct dilatation. ??Normal hepatopedal flow in the main portal vein. Pancreas poorly visualized. ??Aorta and IVC are unremarkable. ??Spleen is unremarkable. ??No abdominal ascites. Procedure Note Gordon Tolentino MD - 04/09/2019 EXAMINATION: US ABD COMPLETE HISTORY: Upper quadrant pain DATE: 04/09/2019 1:36 PM COMPARISON: CT 04/04/2019 TECHNIQUE: Sonographic evaluation of the abdomen FINDINGS: Right kidney measures 10.1 cm in length and the left kidney measures 12.5cm in length. No renal mass, cyst or stone. No hydronephrosis. Liver is unremarkable. Gallbladder is unremarkable. No cholelithiasis orwall thickening. Common bile duct normal caliber at 6 mm. Nointrahepatic bile duct dilatation. Normal hepatopedal flow in the mainportal vein. Pancreas poorly visualized. Aorta and IVC are unremarkable. Spleen isunremarkable. No abdominal ascites. IMPRESSION: No acute abnormality identified. Interpreted By: Gordon Tolentino MD, 04/09/2019 5:00 PM Yakov Bello MD ULTRASOUND Final Result documented in this encounter Visit Diagnoses Diagnosis Left upper quadrant pain Abdominal pain, left upper quadrant Painful orthopaedic hardware (CMS/HCC)- Primary documented in this encounter Care Teams Manuscript Editor Relationship Specialty Start Date End Date Clara Stanley APNP [address] [place] [address] PCP - General NURSE PRACTITIONER 06/01/18 Dominick Mccloud MD [facility] [address] [place] [address] [place] Aitchbone Breaker CARDIOVASCULAR DISEASE 03/28/19 documented as of this encounter
--- OUTSIDE RECORDS SUMMARY | 2024-03-02 03:23 | XMS_ITS | Encounter Summary ---
Author Organization [facility] Address [address] [place] [address]. [place], [place] [address] [place] [address] Care Team Providers Care Credit Review Manager Name Role Phone Clara Stanley Primary Care Provider [phone] Dominick Mccloud MD Unavailable [phone] Reason for Visit * Reason Onset Date Comments Results 04/12/2019 Encounter Details Date Type Department Care Team (Late st Contact Info) Description 04/12/2019 Telephone [facility] Family & Internal Medicine [facility] [address] [place] [address] Clara Stanley APNP [address] [place] [address] Results Social History Tobacco Use [...] Progress Notes * Cheri Steiner RN - 04/12/2019 1:57 PM CST Patient notified. CAL EQUIPMENT REPAIRER * Chrei Steiner RN - 04/12/2019 1:50 PM CST ----- Message from Yakov Bello MD sent at 04/11/2019 6:11 PM MEDICAL EQUIPMENT REPAIRER ----- Abdominal ultrasound is normal. CAL EQUIPMENT REPAIRER documented in this encounter Plan of Treatment Upcoming Encounters Date Type Department Care Team (Late st Contact Info) Description 03/28/2024 7:30 AM MEDICAL EQUIPMENT REPAIRER Hospital Encounter [facility] [place] [address] Antwan Stone, DPM [address], [place] [address] 03/28/2024 7:30 AM MEDICAL EQUIPMENT REPAIRER Anesthesia Event [place] [address] Shanelle Avila, WAREHOUSE ASSOCIATE 1 [place] [address] 03/28/2024 7:30 AM MEDICAL EQUIPMENT REPAIRER - 03/28/2024 8:48 AM MEDICAL EQUIPMENT REPAIRER Surgery [facility] [address] Antwan Stone, DIEGO [address], [place] [address] REMOVAL OF HARDWARE LEFT FOOT 04/05/2024 8:30 AM MEDICAL EQUIPMENT REPAIRER Office Visit Darren Chaudhari-O'F allon THREE [facility], [place] [address] [place] [address] Dominick Mccloud MD Three [facility]. [address] [address] Scheduled Procedures Name Priority Associated Diagnoses Date/Ti me REMOVAL PLATE SCREW OR PIN SCHED BY FAX 02/08/24 [facility] PHONE ASSESS 03/28/2024 7:30 AM MEDICAL EQUIPMENT REPAIRER documented as of this encounter Visit Diagnoses Not on filedocumented in this encounter Care Teams Credit Review Manager Relationship Specialty Start Date End Date Clara Stanley APNP [address] [place] [address] PCP - General NURSE PRACTITIONER 06/01/18 Dominick Mccloud MD [address] [address] [place] Senior Budget Analyst CARDIOVASCULAR DISEASE 03/28/19 documented as of this encounter
--- OUTSIDE RECORDS SUMMARY | 2024-03-02 03:23 | XMS_ITS | Encounter Summary ---
Author Organization [facility] Address [address] [place] [address]. [place], [place] [address] [place] [address] Care Team Providers Care Freight Team Associate Name Role Phone Clara Stanley Primary Care Provider [phone] Dominick Mccloud MD Unavailable [phone] Encounter Details Date Type Department Care Team (Latest Contact Info) Description 05/20/2019 Scan HEALTH INFO SRVCS Scanned, Documents Social [...] st Contact Info) Description 03/28/2024 7:30 AM SPINNING MULE TENDER Hospital Encounter [facility] [place] [address] Antwan Stone DPM [address], [place] [address] 03/28/2024 7:30 AM SPINNING MULE TENDER Anesthesia Event [place] [address] Shanelle Avila, PROCTOLOGIST [address] [place] [address] 03/28/2024 7:30 AM SPINNING MULE TENDER - 03/28/2024 8:48 AM SPINNING MULE TENDER Surgery [facility] [place] [address] Antwan Stone, DPÁngel [address], [place] [address] REMOVAL OF HARDWARE LEFT FOOT 04/05/2024 8:30 AM SPINNING MULE TENDER Office Visit [facility] Cardiovascular-O'F allon THREE [facility], [facility] [address] [place] [address] Dominick Mccloud MD Three [facility]. [facility] [address] [place], [place] [address] Scheduled Procedures Name Priority Associated Diagnoses Date/Ti me REMOVAL PLATE SCREW OR PIN SCHED BY FAX 02/08/24 [facility] PHONE ASSESS 03/28/2024 7:30 AM SPINNING MULE TENDER documented as of this encounter Visit Diagnoses Not on filedocumented in this encounter Care Teams Freight Team Associate Relationship Specialty Start Date End Date Clara Stanley APNP [address] [place] [address] PCP - General NURSE PRACTITIONER 06/01/18 Dominick Mccloud MD Three [facility]. [facility] [address] [place], [place] [address] [place] Celluloid Trimmer CARDIOVASCULAR DISEASE 03/28/19 documented as of this encounter
--- OUTSIDE RECORDS SUMMARY | 2024-03-02 03:23 | XMS_ITS | Encounter Summary ---
Author Organization [facility] Address [address] [place] [address]. [place] [address] [place] [address] Care Team Providers Care Grain Shipper Name Role Phone Clara Stanley Primary Care Provider [phone] Dominick Mccloud MD Unavailable [phone] Reason for Visit * Reason Comments Lab (SCAN) Encounter Details Date Type Department Care Team (Latest Contact Info) Description 05/05/2019 Scan HEALTH INFO SRVCS Scanned, Documents Lab [...] st Contact Info) Description 03/28/2024 7:30 AM RUST Hospital Encounter [facility] [place] [address] Antwan Stone DPM [address], [place] [address] 03/28/2024 7:30 AM RESIDENTIAL PROGRAM MANAGER Anesthesia Event [place] [address] Shanelle Avila, CLASSICS TEACHER [address] [place] [address] 03/28/2024 7:30 AM RESIDENTIAL PROGRAM MANAGER - 03/28/2024 8:48 AM RESIDENTIAL PROGRAM MANAGER Surgery [place] [address] Antwan Stone, DPM [address], [place] [address] REMOVAL OF HARDWARE LEFT FOOT 04/05/2024 8:30 AM RESIDENTIAL PROGRAM MANAGER Office Visit Darren Chaudhari-O'F allon THREE [facility], [place] [address] [place] [address] Dominick Mccloud MD Three [facility]. [facility] [address] [place], [place] [address] Scheduled Procedures Name Priority Associated Diagnoses Date/Ti me REMOVAL PLATE SCREW OR PIN SCHED BY FAX 02/08/24 [facility] PHONE ASSESS 03/28/2024 7:30 AM RESIDENTIAL PROGRAM MANAGER documented as of this encounter Procedures Procedure Name Priority Date/Time Associated Diagnosis Comments OUTSIDE LAB (SCAN ORDER) Routine 05/05/2019 documented in this encounter Results * OUTSIDE LAB (05/05/2019) 05/05/2019 us Documents Scanned SCANNING Final Result [facility] ONBASE documented in this encounter Visit Diagnoses Not on filedocumented in this encounter Care Teams Grain Shipper Relationship Specialty Start Date End Date Clara Stanley APNP [address] [place] [address] PCP - General NURSE PRACTITIONER 06/01/18 Dominick Mccloud MD [facility] [address] [place] [address] [place] Medical Accounting Clerk CARDIOVASCULAR DISEASE 03/28/19 documented as of this encounter
--- OUTSIDE RECORDS SUMMARY | 2024-03-02 03:23 | XMS_ITS | Encounter Summary ---
Author Organization [facility] Address [address] [place] [address]. [place] [address] [place] [address] Care Team Providers Care Macaroni Maker Name Role Phone Clara Stanley Primary Care Provider [phone] Dominick Mccloud MD Unavailable [phone] Reason for Visit * Reason Comments Image (SCAN) Encounter Details Date Type Department Care Team (Latest Contact Info) Description 05/06/2019 Scan HEALTH INFO SRVCS Scanned, Documents Image [...] AM [facility] Hospital Encounter [facility] [place] [address] Antwan Stone DPM [address], [place] [address] 03/28/2024 7:30 AM CASTING CLEANER Anesthesia Event [place] [address] Shanelle Avila, ABORIGINAL CEREMONIAL CELEBRANT [address] [place] [address] 03/28/2024 7:30 AM CASTING CLEANER - 03/28/2024 8:48 AM CASTING CLEANER Surgery [facility] [address] Antwan Stone, DPM [address], [place] [address] REMOVAL OF HARDWARE LEFT FOOT 04/05/2024 8:30 AM CASTING CLEANER Office Visit Darren Chaudhari-O'F allon THREE [facility], [address] [place] [address] Dominick Mccloud MD Three [facility]. [facility] [address] [place] [address] Scheduled Procedures Name Priority Associated Diagnoses Date/Ti me REMOVAL PLATE SCREW OR PIN SCHED BY FAX 02/08/24 [facility] PHONE ASSESS 03/28/2024 7:30 AM CASTING CLEANER documented as of this encounter Procedures Procedure Name Priority Date/Time Associated Diagnosis Comments IMAGE GENERIC Routine 05/06/2019 documented in this encounter Results * IMAGE STUDY (05/06/2019) Anatomical Region Laterality Modality Other us Documents Scanned SCANNING Final Result documented in this encounter Visit Diagnoses Not on filedocumented in this encounter Care Teams Macaroni Maker Relationship Specialty Start Date End Date Clara Stanley APNP [address] [place] [address] PCP - General NURSE PRACTITIONER 06/01/18 Dominick Mccloud MD Three [facility]. [facility] [address] [place] [address] [place] CARDIOVASCULAR DISEASE 03/28/19 documented as of this encounter
--- OUTSIDE RECORDS SUMMARY | 2024-03-02 03:23 | XMS_ITS | Encounter Summary ---
Author Organization [facility] Address [address] [place] [address]. [place], [place] [address] [place] [address] Care Team Providers Care Dental Assistant Instructor Name Role Phone Clara Stanley Primary Care Provider [phone] Dominick Mccloud MD Unavailable [phone] Encounter Details Date Type Department Care Team (Latest Contact Info) Description 04/04/2019 2:22 PM DAY GUARD - 04/04/2019 11:59 PM [facility] Hospital Encounter [facility] [place] [address] Clara Stanley APNP [facility] [place], [place] [id number] Discharge Disposition: Home or Self Care (Routine [...] encounter Progress Notes * ZEB Nunn - 04/04/2019 5:57 PM CST Results discussed with pt/ GUARD documented in this encounter Plan of Treatment Upcoming Encounters Date Type Department Care Team (Late st Contact Info) Description 03/28/2024 7:30 AM DAY GUARD Hospital Encounter [facility] [place] [address] Antwan Stone DPM [address], [place] [address] 03/28/2024 7:30 AM DAY GUARD Anesthesia Event [place] [address] Shanelle Avila, PAINT FORMULATOR [address] [place], [place] [address] 03/28/2024 7:30 AM DAY GUARD - 03/28/2024 8:48 AM DAY GUARD Surgery [place] [address] Antwan Stone, DPÁngel [address], [place], [place] [address] REMOVAL OF HARDWARE LEFT FOOT 04/05/2024 8:30 AM DAY GUARD Office Visit Darren Chaudhari-O'F allon THREE [facility], [facility] [address] [place], [place] [address] Dominick Mccloud MD Three [facility]. [facility] [address] [place], [place] [address] Scheduled Procedures Name Priority Associated Diagnoses Date/Ti me REMOVAL PLATE SCREW OR PIN SCHED BY FAX 02/08/24 [facility] PHONE ASSESS 03/28/2024 7:30 AM DAY GUARD documented as of this encounter Procedures Procedure Name Priority Date/Time Associated Diagnosis Comments COMPREHENSIVE METABOLIC PANEL Routine 04/04/2019 2:38 PM DAY GUARD Fatigue, unspecified type CBC W/DIFF AUTOMATED Routine 04/04/2019 2:38 PM DAY GUARD Fatigue, unspecified type documented in this encounter Results * (ABNORMAL) COMPREHENSIVE METABOLIC PANEL (04/04/2019 2:38 PM DAY GUARD) [facility] GLUCOSE 87 70 - 99 MG/DL 04/04/2019 4:03 PM [facility] BUN 14 7 - 18 MG/DL 04/04/2019 4:03 PM [facility] CREATININE S/P/B 0.83 0.7 - 1.3 MG/DL 04/04/2019 4:03 PM [facility] SODIUM S/P/B 132(L) 136 - 145 MMOL/L 04/04/2019 4:03 PM [facility] POTASSIUM S/P/B 3.7 3.5 - 5.1 MMOL/L 04/04/2019 4:03 PM [facility] CHLORIDE S/P/B 103 100 - 108 MMOL/L 04/04/2019 4:03 PM [facility] CO2 22.8 21 - 32 MMOL/L 04/04/2019 4:03 PM [facility] CALCIUM S/P/B 8.9 8.5 - 10.1 MG/DL 04/04/2019 4:03 PM [facility] BILIRUBIN TOTAL S/P/B 0.3 0.2 - 1.2 MG/DL 04/04/2019 4:03 PM [facility] TOTAL PROTEIN S/P/B 8.0 6.4 - 8.2 G/DL 04/04/2019 4:03 PM [facility] ALBUMIN S/P/B 4.0 3.4 - 5.0 G/DL 04/04/2019 4:03 PM [facility] AST 11(L) 15 - 37 U/L 04/04/2019 4:03 PM [facility] ALT 28 16 - 60 U/L 04/04/2019 4:03 PM [facility] ALKALINE PHOSPHATASE S/P/B 83 50 - 136 U/L 04/04/2019 4:03 PM [facility] ANION GAP 6.2 5 - 15 MMOL/L 04/04/2019 4:03 PM [facility] BUN CREATININE RATIO 16.8 6 - 26 04/04/2019 4:03 PM [facility] A/G RATIO 1.0 1.0 - 2.0 RATIO 04/04/2019 4:03 PM [facility] EGFR NON-AFR. AMER. >90 >90 ML/MIN/1.7 3 M2 04/04/2019 4:03 PM [facility] EGFR AFR. AMER. >90 >90 ML/MIN/1.7 3 M2 04/04/2019 4:03 PM [facility] Comment: NOTE: eGFR is not calculated for patients <18 years of age. This is an estimated GFR (CKD EPI) and should not be used for calculating drug doses. 04/04/2019 2:38 PM DAY GUARD us [facility] Final Resul t [facility] [address] [place] [address], [place] [phone] * (ABNORMAL) CBC W/DIFF AUTOMATED (04/04/2019 2:38 PM DAY GUARD) WBC 12.5(H) 4.5 - 11.0 x10'3/uL 04/04/2019 3:30 PM DAY GUARD [facility] RBC 4.89 4.70 - 6.10 x10'6/uL 04/04/2019 3:30 PM [facility] HGB 13.9(L) 14.0 - 18.0 G/DL 04/04/2019 3:30 PM DAY GUARD [facility] HCT 41.7(L) 43.0 - 54.0 % 04/04/2019 3:30 PM [facility] MCV 85.3 80.0 - 94.0 FL 04/04/2019 3:30 PM [facility] MCH 28.4 27.0 - 31.0 PG 04/04/2019 3:30 PM [facility] MCHC 33.3 32.0 - 36.0 G/DL 04/04/2019 3:30 PM [facility] RDW 13.0 11.5 - 14.5 % 04/04/2019 3:30 PM [facility] PLT 322 130 - 400 x10'3/uL 04/04/2019 3:30 PM [facility] MPV 11.3 9.3 - 12.2 FL 04/04/2019 3:30 PM [facility] DIFFERENTIAL TYPE AUTOMATED DIFFERENTIAL 04/04/2019 3:30 PM [facility] NEUTROPHILS % 76.8 % 04/04/2019 3:30 PM [facility] LYMPHOCYTES % 12.4 % 04/04/2019 3:30 PM [facility] MONOCYTES % 7.6 % 04/04/2019 3:30 PM [facility] EOSINOPHILS 1.6 % 04/04/2019 3:30 PM [facility] BASOPHILS 0.6 % 04/04/2019 3:30 PM [facility] IMMATURE GRANS % 1.0 % 04/04/19 3:30 PM [facility] ABS. NEUTROPHILS TOTAL 9.54(H) 1.80 - 7.70 x10'3/uL 04/04/2019 3:30 PM [facility] ABS. LYMPHOCYTES 1.55 1.00 - 4.80 x10'3/uL 04/04/2019 3:30 PM DAY GUARD [facility] ABS. MONOCYTES 0.95(H) 0.30 - 0.82 x10'3/uL 04/04/2019 3:30 PM DAY GUARD [facility] ABS. EOSINOPHILS 0.20 0.04 - 0.54 x10'3/uL 04/04/2019 3:30 PM DAY GUARD [facility] ABS. BASOPHILS 0.08 0.01 - 0.08 x10'3/uL 04/04/2019 3:30 PM DAY GUARD [facility] ABS. IMMATURE GRANULOCYTES 0.13 0.00 - 0.49 x10'3/uL 04/04/2019 3:30 PM DAY GUARD [facility] 04/04/2019 2:38 PM DAY GUARD Clara [facility] Final Resul t [facility] [address] [place] [address], documented in this encounter Visit Diagnoses Diagnosis Fatigue, unspecified type Painful orthopaedic hardware (CMS/HCC)- Primary documented in this encounter Care Teams Dental Assistant Instructor Relationship Specialty Start Date End Date Clara Stanley APNP [address] [place] [address] PCP - General NURSE PRACTITIONER 06/01/18 Dominick Mccloud MD Three [facility]. [address] [place] [address] [place] [employer] CARDIOVASCULAR DISEASE 03/28/19 documented as of this encounter
--- OUTSIDE RECORDS SUMMARY | 2024-03-02 03:23 | XMS_ITS | Encounter Summary ---
Author Organization [facility] Address [address] [place] [address]. [place], [place] [address] [place] [address] Care Team Providers Care Corporate Event Planner Name Role Phone Clara Stanley Primary Care Provider [phone] Domniick Mccloud MD Unavailable [phone] Encounter Details Date Type Department Care Team (Late st Contact Info) Description 04/08/2019 11:40 AM BRICK DROPPER Laboratory Only [facility] Medical Group Family & Internal Medicine [address] [address] Social History Tobacco Use Types Packs/Day Years [...] st Contact Info) Description 03/28/2024 7:30 AM BRICK DROPPER Hospital Encounter [facility] [place] [address] Antwan Stone DPM [address], [place] [address] 03/28/2024 7:30 AM BRICK DROPPER Anesthesia Event [facility] [address] Shanelle Avila, CLOTH SHRINKING 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 [address] [place] [address] 03/28/2024 7:30 AM BRICK DROPPER - 03/28/2024 8:48 AM BRICK DROPPER Surgery [facility] [place] [address] Antwan Stone, DPM [address], [place] [address] REMOVAL OF HARDWARE LEFT FOOT 04/05/2024 8:30 AM BRICK DROPPER Office Visit Darren Chaudhari-O'F allon THREE [facility], [facility] [address] [place] [address] Dominick Mccloud MD Three [facility]. [facility] [address] [place] [address] Scheduled Procedures Name Priority Associated Diagnoses Date/Ti me REMOVAL PLATE SCREW OR PIN SCHED BY FAX 02/08/24 [facility] PHONE ASSESS 03/28/2024 7:30 AM BRICK DROPPER documented as of this encounter Procedures Procedure Name Priority Date/Time Associated Diagnosis Comments VENIPUNC ARM DRAW Routine 04/08/2019 12:24 PM BRICK DROPPER Left upper quadrant pain documented in this encounter Visit Diagnoses Diagnosis Left upper quadrant pain- Primary Abdominal pain, left upper quadrant Painful orthopaedic hardware (CMS/HCC)- Primary documented in this encounter Care Teams Corporate Event Planner Relationship Specialty Start Date End Date Clara Stanley APNP [address] [place] [address] PCP - General NURSE PRACTITIONER 06/01/18 Dominick Mccloud MD [facility]. [facility] [address] [place] [address] [place] [facility] CARDIOVASCULAR DISEASE 03/28/19 documented as of this encounter
--- OUTSIDE RECORDS SUMMARY | 2024-03-02 03:23 | XMS_ITS | Encounter Summary ---
Author Organization [facility] Address [address] [place] [address]. [place], [place] [address] [place] [address] Care Team Providers Care Savings Counselor Name Role Phone Clara Stanley Primary Care Provider [phone] Dominick Mccloud MD Unavailable [phone] Reason for Visit * Reason Comments Pathology (SCAN) CYTOPATHOLOGY MEDIAS TINAL FLUID Encounter Details Date Type Department Care Team (Late Contact Info) Description 05/19/2019 Scan HEALTH INFO SRVCS Scanned, Documents Pathology (SCAN) (CYTOPATHOLOGY MEDIASTINAL FLUID ) Social History Tobacco Use Types Packs/Day [...] Contact Info) Description 03/28/2024 7:30 AM [facility] Hospital Encounter [facility] [place] [address] Antwan Stone DPM [address], [address] [place], [place] [id number] 03/28/2024 7:30 AM FILM HISTORIAN Anesthesia [place] [address] Shanelle Avila, NURSE ADMINISTRATOR [address] [place] [address] 03/28/2024 7:30 AM FILM HISTORIAN - 03/28/2024 8:48 AM FILM HISTORIAN Surgery [place] [address] Antwan Stone, DPM [address] [place] [address] REMOVAL OF HARDWARE LEFT FOOT 04/05/2024 8:30 AM FILM HISTORIAN Office Visit Darren Chaudhari-O'F allon THREE [facility], [facility] [address] [place] [address] Dominick Mccloud MD Three [facility]. [facility] [address] [place] [address] Scheduled Procedures Name Priority Associated Diagnoses Date/Ti me REMOVAL PLATE SCREW OR PIN SCHED BY FAX 02/08/24 [facility] PHONE ASSESS 03/28/2024 7:30 AM FILM HISTORIAN documented as of this encounter Procedures Procedure Name Priority Date/Time Associated Diagnosis Comments PATHOLOGY GENERIC (SCAN ORDER) Routine 05/19/2019 OUTSIDE LAB (SCAN ORDER) Routine 05/19/2019 documented in this encounter Results * PATHOLOGY (05/19/2019) 05/19/2019 us Documents Scanned SCANNING Edited Result - Final [facility] * OUTSIDE LAB (05/19/2019) 05/19/2019 us Documents Scanned SCANNING Edited Result - Final [facility] documented in this encounter Visit Diagnoses Not on filedocumented in this encounter Care Teams Savings Counselor Relationship Specialty Start Date End Date Clara Stanley APNP [address] [place] [address] PCP - General NURSE PRACTITIONER 06/01/18 Dominick Mccloud MD [facility] [address] [place] [address] [place] Electro Mechanical Designer CARDIOVASCULAR DISEASE 03/28/19 documented as of this encounter
--- OUTSIDE RECORDS SUMMARY | 2024-03-02 03:23 | XMS_ITS | Encounter Summary ---
Author Organization [facility] Address [address] [place] [address]. [place], [place] [address] [place] [address] Care Team Providers Care Head Men'S Tennis Coach Name Role Phone Clara Stanley Primary Care Provider [phone] Dominick Mccloud MD Unavailable [phone] Reason for Visit * Reason Onset Date Comments Results 04/26/2019 Encounter Details Date Type Department Care Team (Late st Contact Info) Description 04/26/2019 Telephone [facility] Family & Internal Medicine [facility] [address] [place] [address] Clara Stanley APNP [address] [place] [address] Results Social History Tobacco Use Types Packs/Day Years Used Date Smoking Tobacco: Never Smokeless Tobacco: Never Alcohol Use Standard Drinks/Week Comments Yes 0 (1 standard drink = 0.6 oz pur e alcohol) 6 beers weekly in 2018 AUDIT-C Answer Date Recorded Frequency of Alcohol [...] Progress Notes * Cheri Steiner RN - 04/27/2019 9:22 AM CST Spoke to patient; verbalized understanding. Patient is in the pulmonology's office this morning. ATTENDANT CREW * Cheri Steiner RN - 04/26/2019 1:50 PM CST LMTC 04/26/19 ATTENDANT CREW * Cheri Steiner RN - 04/26/2019 1:47 PM CST ----- Message from ZEB Nunn sent at 04/25/2019 8:36 PM MESS ATTENDANT CREW ----- Let pt know it looks as if his lung nodules are unchanged. Recommendations include serial imaging, PET/CT or tissue sample (biopsy). Please refer to pulmonology for further discussion of this. Can place referral as urgent. ATTENDANT CREW documented in this encounter Plan of Treatment Upcoming Encounters Date Type Department Care Team (Late st Contact Info) Description 03/28/2024 7:30 AM MESS ATTENDANT CREW Hospital Encounter [facility] [place] [address] Antwan Stone DPM [address], [place] [address] 03/28/2024 7:30 AM MESS ATTENDANT CREW Anesthesia Event [place] [address] Shanelle Avila, TRAFFIC SIGNAL SUPERVISOR MAINTENANCE [address] [place] [address] 03/28/2024 7:30 AM MESS ATTENDANT CREW - 03/28/2024 8:48 AM MESS ATTENDANT CREW Surgery [facility] [place] [address] Antwan Stone, DPÁngel [address], [place] [address] REMOVAL OF HARDWARE LEFT FOOT 04/05/2024 8:30 AM MESS ATTENDANT CREW Office Visit Darren Cardiovascular-O'F lonnie THREE [facility], [facility] [address] [place] [address] Dominick Mccloud MD [facility]. [facility] [address] [place] [address] Scheduled Procedures Name Priority Associated Diagnoses Date/Ti me REMOVAL PLATE SCREW OR PIN SCHED BY FAX 02/08/24 [facility] PHONE ASSESS 03/28/2024 7:30 AM MESS ATTENDANT CREW documented as of this encounter Visit Diagnoses Not on filedocumented in this encounter Care Teams Head Men'S Tennis Coach Relationship Specialty Start Date End Date Clara Stanley APNP [address] [place] [address] PCP - General NURSE PRACTITIONER 06/01/18 Dominick Mccloud MD [facility]. [facility] [address] [place] [address] [place] Divinity Professor CARDIOVASCULAR DISEASE 03/28/19 documented as of this encounter
--- OUTSIDE RECORDS SUMMARY | 2024-03-02 03:23 | XMS_ITS | Encounter Summary ---
Author Organization [facility] Address [address] [place] [address]. [place], [place] [address] [place] [address] Care Team Providers Care Vamp Throater Name Role Phone Clara Stanley Primary Care Provider [phone] Dominick Mccloud MD Unavailable [phone] Reason for Visit * Reason Onset Date Comments Pain 05/02/2019 Encounter Details Date Type Department Care Team (Late st Contact Info) Description 05/02/2019 Telephone [facility] Family & Internal Medicine [facility] [address] [place] [address] Clara Stanley APNP [address] [place] [address] Pain Social History Tobacco Use Types Packs/Day [...] Progress Notes * Cheri Steiner RN - 05/02/2019 6:02 PM CST Spoke to patient's , Faith; verbalized understanding. NICAL SUPPORT ANALYST * ZEB Nunn - 05/02/2019 5:32 PM CST Let pt know to go ahead and have the PET scan tomorrow, let's see what that shows and then maybe wecan proceed with a L-spine or T-spine MRI. ---to see if maybe a back problem is causing these symptoms. NICAL SUPPORT ANALYST * Estrellita Chi MA - 05/02/2019 2:14 PM CST Per Anna this is the same pain that he has been having. Wanting to know what else can be done. States that he I having a PET scan tomorrow for the lung nodules. NICAL SUPPORT ANALYST * ZEB Nunn - 05/02/2019 1:00 PM CST Is this the same pain he has been having for the past several weeks? If so---too late to treat for shingles anyway. Would think that the rash would have manifested by now. NICAL SUPPORT ANALYST * Cris Yusuf - 05/02/2019 10:17 AM CST Anna calling, with all of patients testing being negative, wondering if pain in back and abd couldbe shingles? She said he does not have the rash but has all of other symptoms Numbness tingling, severe pain that radiates from back to abd feels like it is pushing out from theinside, chills She is wondering if we could try to treat for shingles? [facility]ul grand listed NICAL SUPPORT ANALYST documented in this encounter Plan of Treatment Upcoming Encounters Date Type Department Care Team (Late st Contact Info) Description 03/28/2024 7:30 AM TECHNICAL SUPPORT ANALYST Hospital Encounter [facility] [place] [address] Antwan Stone, DPM [address], [place] [address] 03/28/2024 7:30 AM TECHNICAL SUPPORT ANALYST Anesthesia [place] [address] Shanelle Avila, RAEANN [address] [place] [address] 03/28/2024 7:30 AM TECHNICAL SUPPORT ANALYST - 03/28/2024 8:48 AM TECHNICAL SUPPORT ANALYST [place] [address] Antwan Stone, DIEGO [address], [place] [address] REMOVAL OF HARDWARE LEFT FOOT 04/05/2024 8:30 AM TECHNICAL SUPPORT ANALYST Office Visit Darren Cardiovascular-O'F allon THREE [facility], [facility] [address] [place] [address] Dominick Mccloud MD Three [facility]. [facility] [address] [place] [address] Scheduled Procedures Name Priority Associated Diagnoses Date/Ti me REMOVAL PLATE SCREW OR PIN SCHED BY FAX 02/08/24 [facility] PHONE ASSESS 03/28/2024 7:30 AM TECHNICAL SUPPORT ANALYST documented as of this encounter Visit Diagnoses Not on filedocumented in this encounter Care Teams Vamp Throater Relationship Specialty Start Date End Date Clara Stanley APNP [address] [place] [address] PCP - General NURSE PRACTITIONER 06/01/18 Dominick Mccloud MD [facility]. [facility] [address] [place] [address] Fely Hatchery Worker CARDIOVASCULAR DISEASE 03/28/19 documented as of this encounter
--- OUTSIDE RECORDS SUMMARY | 2024-03-02 03:23 | XMS_ITS | Encounter Summary ---
Author Organization [facility] Address [address] [place] [address]. [place], [place] [id number] [place] [address] Care Team Providers Care Litigation Attorney Name Role Phone Clara Stanley Primary Care Provider [phone] Dominick Mccloud MD Unavailable [phone] Reason for Referral * Imaging (Emergency) - Closed Specialty Diagnoses / Procedures Referred By Ismaelac t Referred To Contact RADIOLOGY Diagnoses Left upper quadrant pain Procedures CT ABD+PEL W CON Clara Stanley APNP [address] [place] [address] Phone: tel: fax: Referral ID Status Reason Start Date Expiration Date Visits Re quested Visits Authorized [id number] Closed 04/04/2019 07/03/2019 1 1 IC HEALTH DENTIST Reason for Visit * Imaging (Emergency) - Closed Specialty Diagnoses / Procedures Referred By Erik galdamez Referred To Contact RADIOLOGY Diagnoses Left upper quadrant pain Procedures CT ABD+PEL W CON Clara Stanley APNP [address] [place] [address] Phone: tel: fax: Referral ID Status Reason Start Date Expiration Date Visits Re quested Visits Authorized [id number] Closed 04/04/2019 07/03/2019 1 1 Encounter Details Date Type Department Care Team (Latest Contact Info) Description 04/04/2019 2:22 PM PUBLIC HEALTH DENTIST - 04/04/2019 11:59 PM PUBLIC HEALTH DENTIST Hospital Encounter [facility] [address] [facility] [place] [address] Clara Stanley, ZEB [address] [place] [address] Discharge Disposition: Home or Self Care (Routine [...] times daily. 60 capsule 1 0 09/26/19 zolpidem (AMBIEN) 10 MG tabletIndications:I nsomnia, unspecified type Take 1 tablet (10 mg total) by mouth nightly as needed for Sleep. 15 tablet 0 05/01/19 20 documented as of this encounter Progress Notes * ZEB Nunn - 04/04/2019 5:57 PM CST Results discussed with pt/. Pt remains uncomfortable. Not eating much as just does not feel hungry. Please place order for ANAYELI chest CT WWO, diagnosis of right lung nodule (1.7 cm x 1.3 cm in size). Also place order for URGENT pulmonology referral for same diagnosis. Discussed with today to use Miralax again tonight and again in the morning if no BM. Please call pt to check to see how he is feeling. If no BM after morning Miralax dose----can try over the counter mag citrate. Also discussed with pt and if feeling worse---go to ER [facility]. IC HEALTH DENTIST documented in this encounter Plan of Treatment Upcoming Encounters Date Type Department Care Team (Late st Contact Info) Description 03/28/2024 7:30 AM PUBLIC HEALTH DENTIST Hospital Encounter [facility] [place] [address] Antwan Stone DPM [address], [place] [address] 03/28/2024 7:30 AM PUBLIC HEALTH DENTIST Anesthesia Event [facility] [place], [place] [id number] Shanelle Avila, ASSOCIATE PROFESSOR OF LIBRARY MEDIA [address] [place], [place] [address] 03/28/2024 7:30 AM PUBLIC HEALTH DENTIST - 03/28/2024 8:48 AM PUBLIC HEALTH DENTIST [place] [address] Antwan Stone, DPM [address], [address] [place], [place] [address] REMOVAL OF HARDWARE LEFT FOOT 04/05/2024 8:30 AM PUBLIC HEALTH DENTIST Office Visit Darren Chaudhari-O'F allon THREE [facility], [facility] [address] [place], [place] [address] Dominick Mccloud MD Three [facility]. [facility] [address] [place], [place] [id number] Scheduled Procedures Name Priority Associated Diagnoses Date/Ti me REMOVAL PLATE SCREW OR PIN SCHED BY FAX 02/08/24 S PHONE ASSESS 03/28/2024 7:30 AM PUBLIC HEALTH DENTIST documented as of this encounter Procedures Procedure Name Priority Date/Time Associated Diagnosis Comments CT ABD+PEL W CON STAT 04/04/2019 3:33 PM PUBLIC HEALTH DENTIST Left upper quadrant pain documented in this encounter Results * CT ABD+PEL W CON (04/04/2019 3:33 PM PUBLIC HEALTH DENTIST) Anatomical Region Laterality Modality Abdomen Computed Tomogra phy 04/04/2019 3:58 PM PUBLIC HEALTH DENTIST Impressions 04/04/2019 4:03 PM PUBLIC HEALTH DENTIST IMPRESSION: 1. ??Suspicious 1.7 cm right lower lobe nodule. ??Assuming no outside prior comparisons are available, would recommend PET/CT, percutaneous biopsy or short- term 3 month follow-up CT for further evaluation. ??Would suggest dedicated chest CT for more complete evaluation as well. 2. ??No acute intra-abdominal abnormality identified. 2. ??Colonic diverticulosis without diverticulitis. Interpreted By: Gordon Tolentino MD, 04/04/2019 3:58 PM Narrative 04/04/2019 4:03 PM PUBLIC HEALTH DENTIST Examination: CT ABD+PEL W CON Clinical history: Abdominal pain Comparison: None DATE/TIME: 04/04/2019 3:01 PM Technique: Multiplanar images of the abdomen and pelvis were obtained following the uneventful intravenous administration of 140 mL Isovue 370. A dose lowering technique was used for this procedure, which may include, but is not limited to, dose reduction technique, automated exposure control, the use of iterative reconstruction, and ALARA (As Low As Reasonably Achievable) / Image Gently techniques. Findings: Suspicious noncalcified right lower lobe nodule measuring 1.7 cm craniocaudal dimension and 1.3 cm transverse dimension, medial basal segment. ??Liver is negative. ??Gallbladder and bile ducts are negative. ??Pancreas is negative. ??Spleen is negative. ??Adrenal glands are negative. ??Kidneys are negative. ??Bladder is negative. ??Prostate gland is negative. Abdominal aorta is normal caliber. ??No retroperitoneal lymphadenopathy. ??No free intraperitoneal air or fluid. ??Colonic diverticulosis without evidence of diverticulitis. ??No bowel obstruction or definite bowel inflammatory disease identified. ??Parts of the colon are suboptimally distended and not optimally evaluated. ??Appendix appears surgically absent. ??No acute osseous abnormality or destructive bone lesion. ??Moderate lumbosacral facet arthritis. Procedure Note Gordon Tolentino MD - 04/04/2019 Examination: CT ABD+PEL W CON Clinical history: Abdominal pain Comparison: None DATE/TIME: 04/04/2019 3:01 PM Technique: Multiplanar images of the abdomen and pelvis were obtainedfollowing the uneventful intravenous administration of 140 mL Isovue 370.A dose lowering technique was used for this procedure, which may include,but is not limited to, dose reduction technique, automated exposurecontrol, the use of iterative reconstruction, and ALARA (As Low AsReasonably Achievable) / Image Gently techniques. Findings: Suspicious noncalcified right lower lobe nodule measuring 1.7 cmcraniocaudal dimension and 1.3 cm transverse dimension, medial basalsegment. Liver is negative. Gallbladder and bile ducts are negative.Pancreas is negative. Spleen is negative. Adrenal glands are negative.Kidneys are negative. Bladder is negative. Prostate gland is negative. Abdominal aorta is normal caliber. No retroperitoneal lymphadenopathy.No free intraperitoneal air or fluid. Colonic diverticulosis withoutevidence of diverticulitis. No bowel obstruction or definite bowelinflammatory disease identified. Parts of the colon are suboptimallydistended and not optimally evaluated. Appendix appears surgicallyabsent. No acute osseous abnormality or destructive bone lesion.Moderate lumbosacral facet arthritis. IMPRESSION: 1. Suspicious 1.7 cm right lower lobe nodule. Assuming no outside priorcomparisons are available, would recommend PET/CT, percutaneous biopsy orshort-term 3 month follow-up CT for further evaluation. Would suggestdedicated chest CT for more complete evaluation as well. 2. No acute intra-abdominal abnormality identified. 2. Colonic diverticulosis without diverticulitis. Interpreted By: Gordon Tolentino MD, 04/04/2019 3:[address] Final Resul t documented in this encounter Visit Diagnoses Diagnosis Left upper quadrant pain Abdominal pain, left upper quadrant Painful orthopaedic hardware (CMS/HCC)- Primary documented in this encounter Administered Medications Inactive Administered Medications - up to 3 most recent administrations Medication Order MAR Action Action Date Dose Rate Site iopamidol (ISOVUE-370) 76 % injection 100 mL 100 mL, Intravenous, IMG once as needed, Contrast, 1 dose, Starting on 04/04/19 at 1534, Until 04/04/19 at 1534 Given 04/04/2019 3:34 PM PUBLIC HEALTH DENTIST 100 mLs documented in this encounter Care Teams Litigation Attorney Relationship Specialty Start Date End Date Clara Stanley APNP [address] [place] [address] PCP - General NURSE PRACTITIONER 06/01/18 Dominick Mccloud MD [facility]. [facility] [address] [place] [address] [place] Membership Solicitor CARDIOVASCULAR DISEASE 03/28/19 documented as of this encounter
--- OUTSIDE RECORDS SUMMARY | 2024-03-02 03:23 | XMS_ITS | Encounter Summary ---
Author Organization [facility] Address [address] [place] [address]. [place], [place] [address] [place] [address] Care Team Providers Care Superannuation Funds Manager Name Role Phone Clara Stanley Primary Care Provider [phone] Dominick Mccloud MD Unavailable [phone] Reason for Referral * Imaging (Routine) - Closed Specialty Diagnoses / Procedures Referred By Erik galdamez Referred To Contact RADIOLOGY Diagnoses Right lower lobe pulmonary nodule Procedures CT CHEST WO CON Clara Stanley APNP [address] [place] [address] Phone: tel: fax: Referral ID Status Reason Start Date Expiration Date Visits Re quested Visits Authorized [id number] Closed 04/18/2019 07/17/2019 1 1 M HAND * Consultation (Urgent) - Closed Specialty Diagnoses / Procedures Referred By Erik galdamez Referred To Contact PULMONARY DISEASE / SLEEP & RESPIRATORY CARE Diagnoses Lung nodule Clara Stanley APNP [address] [place] [address] Phone: tel: fax: Cuauhtemoc Mendieta MD [address] [place] [address] Phone: tel: fax: Referral ID Status Reason Start Date Expiration Date V isits Requested Visits Authorized [id number] Closed Specialty Services 04/05/2019 05/05/2020 1 1 M HAND Reason for Visit * Reason Onset Date Comments Results 04/05/2019 Encounter Details Date Type Department Care Team (Late st Contact Info) Description 04/05/2019 Telephone [facility] Medical Group Family & Internal Medicine [facility] [address] [place] [phone] Clara Stanley APNP [address] [place] [address] Results Social History Tobacco Use Types Packs/Day [...] of this encounter Progress Notes * Zoila Kenyon MA - 04/07/2019 10:15 AM CSTAddended by: ZOILA KENYON on: 04/07/2019 10:15 AM Modules accepted: Orders M HAND * Zoila Kenyon MA - 04/05/2019 3:46 PM CSTAddended by: ZOILA KENYON on: 04/05/2019 03:46 PM Modules accepted: Orders M HAND * Cheri Steiner RN - 04/05/2019 2:50 PM CST Ordered. M HAND * ZEB Nunn - 04/05/2019 12:56 PM CST That is good to hear. In regards to yesterday's task there was a 1.7 cm x 1.3 cm pulmonary nodule noted in patient's right lower lobe. This was found on patient's abdominal pelvis CT yesterday. Please order an urgent pulmonology referral and place an order for a chest CT WWO and marked this as ANAYELI. I discussed patient's CT results with his /patient yesterday afternoon. M HAND * Zoila Kenyon MA - 04/05/2019 12:33 PM CST Spoke with pt and informed of the following. Pt states he is doing better today b/c he had a BM. Ptthinks that the pain meds were affecting his stomach so he is going to lay off them for a little bit M HAND * Zoila Kenyon MA - 04/05/2019 11:31 AM CST ----- Message from ZEB Nunn sent at 04/05/2019 11:30 AM STEAM HAND ----- Let pt know other than some degenerative changes, thoracic spine was unremarkable. M HAND documented in this encounter Plan of Treatment Upcoming Encounters Date Type Department Care Team (Late st Contact Info) Description 03/28/2024 7:30 AM STEAM HAND Hospital Encounter [facility] [place] [address] Antwan Stone DPM [address], [place] [address] 03/28/2024 7:30 AM STEAM HAND Anesthesia Event [facility] [address] Shanelle Avila, DRIVER UTILITY WORKER [address] [place] [address] 03/28/2024 7:30 AM STEAM HAND - 03/28/2024 8:48 AM STEAM HAND Surgery [facility] [place] [address] Antwan Stone, DPÁngel [address] [place] [address] REMOVAL OF HARDWARE LEFT FOOT 04/05/2024 8:30 AM STEAM HAND Office Visit Darren Chaudhari-Omar'Marbella allon THREE [facility], [facility] [address] [place], [place] [address] Dominick Mccloud MD Three [facility]. [facility] [address] [place], [place] [phone] Scheduled Procedures Name Priority Associated Diagnoses Date/Ti me REMOVAL PLATE SCREW OR PIN SCHED BY FAX 02/08/24 KAYLIE PHONE ASSESS 03/28/2024 7:30 AM STEAM HAND Scheduled Referrals Name Type Priority Associated Diagnoses Orde r Schedule Ambulatory referral to Pulmonology (OTHER) Referral Routine Lung nodule Ordered: 04/05/2019 documented as of this encounter Results * CT CHEST WO CON (04/22/2019 9:14 AM STEAM HAND) Anatomical Region Laterality Modality Chest Computed Tomogra phy 04/23/2019 9:42 PM STEAM HAND Impressions 04/23/2019 9:48 PM STEAM HAND IMPRESSION: 1. ??Indeterminate 1.3 cm lung nodule, right lower lobe, unchanged. RECOMMENDATION: Nodule >8 mm: LOW AND HIGH RISK PATIENT - ??Low dose CT chest without contrast at 3, 12, and 24 months; PET-CT; or tissue sampling. 2. ??Gynecomastia. 3. ??Sub-6 mm lung nodules, right middle lobe, unchanged. Interpreted By: Xander Emmanuel MD, 04/23/2019 9:42 PM Narrative 04/23/2019 9:48 PM STEAM HAND EXAMINATION: CT Chest without contrast DATE: 04/22/2019 8:58 AM CLINICAL HISTORY: Lung nodule. COMPARISON: Lung bases on CT abdomen/pelvis on 04/04/2019 TECHNIQUE: Computed tomography of the chest was obtained without administration of intravenous contrast according to routine protocol. A dose lowering technique was used for this procedure, which may include, but is not limited to, dose reduction technique, automated exposure control, the use of iterative reconstruction, and ALARA (As Low As Reasonably Achievable) / Image Gently techniques. FINDINGS: Indeterminate 1.3 cm lung lobular nodule in the right lower lobe (image 69, series 3), possibly with satellite nodules, unchanged. ??Sub-6 mm lung nodules in the right middle lobe, unchanged. ??No other lung nodules identified. ??Airways intact. ??No pneumothorax. ??No pleural effusion. ??Normal heart size. ??No significant pericardial effusion. ??Calcified mediastinal lymph node. ??Gynecomastia. ??Marginal osteophytes of spine. Procedure Note Xander Emmanuel MD - 04/23/2019 EXAMINATION: CT Chest without contrast DATE: 04/22/2019 8:58 AM CLINICAL HISTORY: Lung nodule. COMPARISON: Lung bases on CT abdomen/pelvis on 04/04/2019 TECHNIQUE: Computed tomography of the chest was obtained withoutadministration of intravenous contrast according to routine protocol. Adose lowering technique was used for this procedure, which may include,but is not limited to, dose reduction technique, automated exposurecontrol, the use of iterative reconstruction, and ALARA (As Low AsReasonably Achievable) / Image Gently techniques. FINDINGS: Indeterminate 1.3 cm lung lobular nodule in the right lower lobe (image69, series 3), possibly with satellite nodules, unchanged. Sub-6 mm lungnodules in the right middle lobe, unchanged. No other lung nodulesidentified. Airways intact. No pneumothorax. No pleural effusion.Normal heart size. No significant pericardial effusion. Calcifiedmediastinal lymph node. Gynecomastia. Marginal osteophytes of spine. IMPRESSION: 1. Indeterminate 1.3 cm lung nodule, right lower lobe, unchanged. RECOMMENDATION: Nodule >8 mm: LOW AND HIGH RISK PATIENT - Low dose CTchest without contrast at 3, 12, and 24 months; PET-CT; or tissuesampling. 2. Gynecomastia. 3. Sub-6 mm lung nodules, right middle lobe, unchanged. Interpreted By: Xander Emmanuel MD, 04/23/2019 9:[address] Final Resul t documented in this encounter Visit Diagnoses Diagnosis Lung nodule- Primary Solitary pulmonary nodule Right lower lobe pulmonary nodule Right lower lobe pulmonary nodule Painful orthopaedic hardware (CMS/HCC)- Primary documented in this encounter Care Teams Superannuation Funds Manager Relationship Specialty Start Date End Date Clara Stanley APNP [address] [place] [address] PCP - General NURSE PRACTITIONER 06/01/18 Dominick Mccloud MD [facility] [address] [place] [address] [place] Tube Cleaning Operator CARDIOVASCULAR DISEASE 03/28/19 documented as of this encounter
--- OUTSIDE RECORDS SUMMARY | 2024-03-02 03:23 | XMS_ITS | Encounter Summary ---
Author Organization [facility] Address [address] [place] [address]. [place], [place] [address] [place] [address] Care Team Providers Care Ornamental Ironworker Name Role Phone Clara Stanley Primary Care Provider [phone] Dominick Mccloud MD Unavailable [phone] Reason for Visit * Reason Onset Date Comments TCM 05/20/2019 Encounter Details Date Type Department Care Team (Late st Contact Info) Description 05/20/2019 Telephone [facility] Medical Group Family & Internal Medicine [facility] [address] [place] [phone] Clara Stanley APNP [address] [place] [address] TCM Social History Tobacco Use Types Packs/Day Years [...] as of this encounter Progress Notes * Cris Yusuf - 05/20/2019 10:57 AM CST Pt returning call, offered to schedule TCM. PT refused at this time. NDER * Cheri Steiner RN - 05/20/2019 10:10 AM CST LMTC 05/20/19 TCM from [facility] NDER documented in this encounter Plan of Treatment Upcoming Encounters Date Type Department Care Team (Late st Contact Info) Description 03/28/2024 7:30 AM EXTENDER Hospital Encounter [facility] [place] [address] Antwan Stone, DIEGO [address], [place] [address] 03/28/2024 7:30 AM EXTENDER Anesthesia Event [facility] [place] [address] Shanelle Avila, SPOOL TENDER [address] [place] [address] 03/28/2024 7:30 AM EXTENDER - 03/28/2024 8:48 AM EXTENDER Surgery [facility] [place] [address] Antwan Stone DPM [address], [place] [address] REMOVAL OF HARDWARE LEFT FOOT 04/05/2024 8:30 AM EXTENDER Office Visit Darren Chaudhari-O'F allon THREE [facility], [facility] [address] [place] [address] Domincik Mccloud MD Three [facility]. [facility] [address] [place] [address] Scheduled Procedures Name Priority Associated Diagnoses Date/Ti me REMOVAL PLATE SCREW OR PIN SCHED BY FAX 02/08/24 [facility] PHONE ASSESS 03/28/2024 7:30 AM EXTENDER documented as of this encounter Visit Diagnoses Not on filedocumented in this encounter Care Teams Ornamental Ironworker Relationship Specialty Start Date End Date Clara Stanley APNP [address] [place] [address] PCP - General NURSE PRACTITIONER 06/01/18 Dominick Mccloud MD [facility] [address] [place] [address] [place] Tunneling Machine Operator CARDIOVASCULAR DISEASE 03/28/19 documented as of this encounter
--- OUTSIDE RECORDS SUMMARY | 2024-03-02 03:23 | XMS_ITS | Encounter Summary ---
Author Organization [facility] Address [address] [place] [address]. [place], [place] [address] [place] [address] Care Team Providers Care Arcgis Developer Name Role Phone Clara Stanley Primary Care Provider [phone] Dominick Mccloud MD Unavailable [phone] Reason for Visit * Reason Onset Date Comments Orders 04/08/2019 US Encounter Details Date Type Department Care Team (Late st Contact Info) Description 04/08/2019 Telephone [facility] Medical Group Family & Internal Medicine [facility] [address] [place] [phone] Ranjit Gallardo DO [address] [place] [address] Orders (US ) Social History Tobacco Use Types Packs/Day [...] as of this encounter Progress Notes * Torri Leong MA - 04/08/2019 9:27 AM CST After speaking to Dr. Gallardo, Dr. Bello, and PIER MASTER Tayler Stanley. All the agree they are wanting to do a full abdominal ultrasound I called and spoke to the Adilene with scheduling. She is informed that we are wanting a full abdominal US on patient, she is going to put a note into the patients chart, and also noting if they radiologist has questions about it they can call and speak to one of the providers CH INSPECTOR * Torri Leong MA - 04/08/2019 9:00 AM CST Radiology department calling from [facility], they are wanting to change patient's ultrasound order to limited LUQ. I did explain that patient is having diffuse abd pain and we are also worried about his liver. Limited LUQ: Covers spleen and LUQ Lmited RUQ: RUQ which can be added on Full abdomen looks at about 20 different areas in the abdomen and radiology doesn't think this is necessary. She reports they are able to do LUQ & RUQ if we put in the order to add RUQ but they will not do a abdomen complete. Is it okay to change order to limited LUQ/RUQ? CH INSPECTOR documented in this encounter Plan of Treatment Upcoming Encounters Date Type Department Care Team (Late st Contact Info) Description 03/28/2024 7:30 AM CLUTCH INSPECTOR Hospital Encounter [facility] [place] [address] Antwan Stone, DIEGO [address], [place] [address] 03/28/2024 7:30 AM CLUTCH INSPECTOR Anesthesia Event [facility] [place] [address] Shanelle Avila, BUNCHER HAND [address] [place] [address] 03/28/2024 7:30 AM CLUTCH INSPECTOR - 03/28/2024 8:48 AM CLUTCH INSPECTOR Surgery [facility] [place] [address] Antwan Stone, DPM [address] [place], [place] [address] REMOVAL OF HARDWARE LEFT FOOT 04/05/2024 8:30 AM CLUTCH INSPECTOR Office Visit [facility] THREE [facility], [facility] [address] [place], [place] [id number] Dominick Mccloud MD [facility]. [facility] [address] [place], [place] [phone] Scheduled Procedures Name Priority Associated Diagnoses Date/Ti me REMOVAL PLATE SCREW OR PIN SCHED BY FAX 02/08/24 [facility] PHONE ASSESS 03/28/2024 7:30 AM CLUTCH INSPECTOR documented as of this encounter Visit Diagnoses Not on filedocumented in this encounter Care Teams Arcgis Developer Relationship Specialty Start Date End Date Clara Stanley APNP [address] [place] [address] PCP - General NURSE PRACTITIONER 06/01/18 Dominick Mccloud MD [facility]. [facility] [address] [place], [place] [address] [place] Manager Crisis CARDIOVASCULAR DISEASE 03/28/19 documented as of this encounter
--- OUTSIDE RECORDS SUMMARY | 2024-03-02 03:23 | XMS_ITS | Encounter Summary ---
Author Organization [facility] Address [address] [place] [address]. [place], [place] [id number] [place] [id number] Care Team Providers Care Geodetic Surveyor Name Role Phone Clara Stanley Primary Care Provider [phone] Dominick Mccloud MD Unavailable [phone] Reason for Visit * Reason Onset Date Comments Referral 04/11/2019 GI Encounter Details Date Type Department Care Team (Late st Contact Info) Description 04/11/2019 Telephone [facility] Medical [facility] Family & Internal Medicine [facility] [address] [place] [address] Clara Stanley APNP [address] [place] [address] Referral (GI) Social History Tobacco Use Types Packs/Day Years [...] Progress Notes * Jadyn Riley MA - 04/11/2019 5:03 PM CST Spoke with , questions asked and answered R SOFTWARE ENGINEER * Mariangel Padilla, BRONSON - 04/11/2019 12:13 PM CST Patient's , Anna, calling asking to speak to Jadyn. She would like a callback to see if you had any luck getting patient a sooner appt with [place]? Please call back. I didn't see anything in chart to tell her. R SOFTWARE ENGINEER documented in this encounter Plan of Treatment Upcoming Encounters Date Type Department Care Team (Late st Contact Info) Description 03/28/2024 7:30 AM CYBER SOFTWARE ENGINEER Hospital Encounter [facility] [place] [address] Antwan Stone DPM [address], [place], [place] [id number] 03/28/2024 7:30 AM CYBER SOFTWARE ENGINEER Anesthesia Event [facility] [place], [place] [id number] Shanelle Avila, PE[employer]ER [employer] [place] [address] [place] [address] 03/28/2024 7:30 AM CYBER SOFTWARE ENGINEER - 03/28/2024 8:48 AM CYBER SOFTWARE ENGINEER [place] [address] Antwan Stone DPM [address], [place], [place] [address] REMOVAL OF HARDWARE LEFT FOOT 04/05/2024 8:30 AM CYBER SOFTWARE ENGINEER Office Visit [facility]-O'[facility] allon THREE [facility], [address] [address] Dominick Mccloud MD [facility]. [facility] [address] [place] [address] Scheduled Procedures Name Priority Associated Diagnoses Date/Ti me REMOVAL PLATE SCREW OR PIN SCHED BY FAX 02/08/24 [facility] PHONE ASSESS 03/28/2024 7:30 AM CYBER SOFTWARE ENGINEER documented as of this encounter Visit Diagnoses Not on filedocumented in this encounter Care Teams Geodetic Surveyor Relationship Specialty Start Date End Date Clara Stanley APNP [address] [place] [address] PCP - General NURSE PRACTITIONER 06/01/18 Dominick Mccloud MD [facility]. [facility] [address] [place] [address] Fely Tow Feeder CARDIOVASCULAR DISEASE 03/28/19 documented as of this encounter
--- OUTSIDE RECORDS SUMMARY | 2024-03-02 03:23 | XMS_ITS | Encounter Summary ---
Author Organization [facility] Address [address] [place] [address]. [place], [place] [address] [place] [address] Care Team Providers Care Servicenow Administrator Name Role Phone Clara Stanley Primary Care Provider [phone] Dominick Mccloud MD Unavailable [phone] Reason for Referral * Imaging (Routine) - Closed Specialty Diagnoses / Procedures Referred By Erik galdamez Referred To Contact RADIOLOGY Diagnoses Right lower lobe pulmonary nodule Procedures CT CHEST WO CON Clara Stanley APNP [address] [place] [address] Phone: tel: fax: Referral ID Status Reason Start Date Expiration Date Visits Re quested Visits Authorized [id number] Closed 04/18/2019 07/17/2019 1 1 TICATOR Reason for Visit * Imaging (Routine) - Closed Specialty Diagnoses / Procedures Referred By Erik galdamez Referred To Contact RADIOLOGY Diagnoses Right lower lobe pulmonary nodule Procedures CT CHEST WO CON Clara Stanley APNP [address] [place] [address] Phone: tel: fax: Referral ID Status Reason Start Date Expiration Date Visits Re quested Visits Authorized [id number] Closed 04/18/2019 07/17/2019 1 1 Encounter Details Date Type Department Care Team (Latest Contact Info) Description 04/22/2019 8:57 AM PLASTICATOR - 04/22/2019 11:59 PM PLASTICATOR Hospital [facility] [address] [place] [address] Clara Stanley, ZEB [address] [place] [address] Discharge Disposition: Home or Self Care (Routine [...] daily. 90 tablet 3 9 08/03/19 20 dicyclomine 20 MG tablet Take 1 tablet (20 mg total) by mouth every 6 (six) hours. 20 tablet 0 09/26/19 20 hydrocodone-acetami nophen 5-325 MG tabletIndications:A cute Pain < 3 Day Supply Take 1 tablet by mouth every 6 (six) hours as needed. Indications: Acute Pain < 3 Day Supply 8 tablet 0 04/27/19 20 omeprazole 40 MG capsule Take 40 mg by mouth daily. 09/26/19 20 ondansetron 4 MG disintegrating tablet Take [...] daily. 60 capsule 1 0 09/26/19 20 sucralfate 1 G tablet TK 1 T PO BEFORE MEALS AND AT BEDTIME 0 09/26/19 20 zolpidem (AMBIEN) 10 MG tabletIndications:I nsomnia, unspecified type Take 1 tablet (10 mg total) by mouth nightly as needed for Sleep. 15 tablet 0 05/01/19 20 documented as of this encounter Progress Notes * ZEB Nunn - 04/22/2019 11:59 PM CST Let pt know it looks as if his lung nodules are unchanged. Recommendations include serial imaging, PET/CT or tissue sample (biopsy). Please refer to pulmonology for further discussion of this. Can place referral as urgent. TICATOR documented in this encounter Plan of Treatment Upcoming Encounters Date Type Department Care Team (Late st Contact Info) Description 03/28/2024 7:30 AM PLASTICATOR Hospital Encounter [facility] [place] [address] Antwan Stone DPM [address] [place] [address] 03/28/2024 7:30 AM PLASTICATOR Anesthesia Event [facility] [place] [address] Shanelle Avila, WELL SERVICE FLOORPERSON [address] [place] [address] 03/28/2024 7:30 AM PLASTICATOR - 03/28/2024 8:48 AM PLASTICATOR Surgery [facility] [place] [address] Antwan Stone, DPM [address] [place] [address] REMOVAL OF HARDWARE LEFT FOOT 04/05/2024 8:30 AM PLASTICATOR Office Visit Darren Chaudhari-O'F allon THREE [facility], [facility] [address] [place], [place] [address] Dominick Mccloud MD [facility]. [facility] [address] [place], [place] [id number] Scheduled Procedures Name Priority Associated Diagnoses Date/Ti me REMOVAL PLATE SCREW OR PIN SCHED BY FAX 02/08/24 S PHONE ASSESS 03/28/2024 7:30 AM PLASTICATOR documented as of this encounter Procedures Procedure Name Priority Date/Time Associated Diagnosis Comments CT CHEST WO CON Routine 04/22/2019 9:14 AM PLASTICATOR Right lower lobe pulmonary nodule documented in this encounter Results * CT CHEST WO CON (04/22/2019 9:14 AM PLASTICATOR) Anatomical Region Laterality Modality Chest Computed Tomogra phy 04/23/2019 9:42 PM PLASTICATOR Impressions 04/23/2019 9:48 PM PLASTICATOR IMPRESSION: 1. ??Indeterminate 1.3 cm lung nodule, right lower lobe, unchanged. RECOMMENDATION: Nodule >8 mm: LOW AND HIGH RISK PATIENT - ??Low dose CT chest without contrast at 3, 12, and 24 months; PET-CT; or tissue sampling. 2. ??Gynecomastia. 3. ??Sub-6 mm lung nodules, right middle lobe, unchanged. Interpreted By: Xander Emmanuel MD, 04/23/2019 9:42 PM Narrative 04/23/2019 9:48 PM PLASTICATOR EXAMINATION: CT Chest without contrast DATE: 04/22/2019 [...] By: Xander Emmanuel MD, 04/23/2019 9:[address] Final Resul t documented in this encounter Visit Diagnoses Diagnosis Right lower lobe pulmonary nodule Painful orthopaedic hardware (CMS/HCC)- Primary documented in this encounter Care Teams Servicenow Administrator Relationship Specialty Start Date End Date Clara Stanley APNP [address] [place] [address] PCP - General NURSE PRACTITIONER 06/01/18 Dominick Mccloud MD [facility] [address] [place] [address] [place] [employer] Leasing Supervisor CARDIOVASCULAR DISEASE 03/28/19 documented as of this encounter
--- OUTSIDE RECORDS SUMMARY | 2024-03-02 03:23 | XMS_ITS | Encounter Summary ---
Author Organization [facility] Address [address] [place] [address]. [place], [place] [address] [place] [address] Care Team Providers Care Wood Flour Miller Name Role Phone Clara Stanley Primary Care Provider [phone] Dominick Mccloud MD Unavailable [phone] Reason for Visit * Reason Onset Date Comments Appointment Request 04/07/2019 Encounter Details Date Type Department Care Team (Late st Contact Info) Description 04/07/2019 Telephone [facility] Medical Group Family & Internal Medicine [facility] [address] [place] [address] Clara Stanley APNP [address] [place] [address] Appointment Request Social History Tobacco Use Types [...] Progress Notes * ZEB Nunn - 04/07/2019 12:40 PM CST Patient has an appointment with Dr. Bello this afternoon. MBLY PRESS OPERATOR * Anika Russell - 04/07/2019 10:09 AM CST Justin has gone to the bathroom, horrible pain in left side still there and radiating throughout abdomen. Patient is wondering if colitis is what the problem is? They also are wondering about nerves, if they are causing the pain and there is something to do about that. He is going to keep seeing the c hiropractor and they are wondering if that will continue to be helpful. He still can't sleep and they don't know what else to do. They have been goggling all sorts of things and wondering what else can be done because he is having real difficulties managing pain and sleeping. MBLY PRESS OPERATOR documented in this encounter Plan of Treatment Upcoming Encounters Date Type Department Care Team (Late st Contact Info) Description 03/28/2024 7:30 AM ASSEMBLY PRESS OPERATOR Hospital Encounter [facility] [place] [address] Antwan Stone DPM [address] [place] [address] 03/28/2024 7:30 AM ASSEMBLY PRESS OPERATOR Anesthesia [place] [address] Shanelle Avila, TREASURY ASSOCIATE [address] [place] [address] 03/28/2024 7:30 AM ASSEMBLY PRESS OPERATOR - 03/28/2024 8:48 AM ASSEMBLY PRESS OPERATOR [place] [address] Antwan Stone DPM [address] [place] [address] REMOVAL OF HARDWARE LEFT FOOT 04/05/2024 8:30 AM ASSEMBLY PRESS OPERATOR Office Visit [facility], [facility] [address] [place] [address] Dominick Mccloud MD [facility]. [facility] [address] [place], [place] [address] Scheduled Procedures Name Priority Associated Diagnoses Date/Ti me REMOVAL PLATE SCREW OR PIN SCHED BY FAX 02/08/24 [facility] PHONE ASSESS 03/28/2024 7:30 AM ASSEMBLY PRESS OPERATOR documented as of this encounter Visit Diagnoses Not on filedocumented in this encounter Care Teams Wood Flour Miller Relationship Specialty Start Date End Date Clara Stanley APNP [address] [place] [address] PCP - General NURSE PRACTITIONER 06/01/18 Dominick Mccloud MD [facility]. [facility] [address] [place], [place] [address] Fely Nat Instructor CARDIOVASCULAR DISEASE 03/28/19 documented as of this encounter
--- OUTSIDE RECORDS SUMMARY | 2024-03-02 03:23 | XMS_ITS | Encounter Summary ---
Author Organization [facility] Address [address] [place] [address]. [place], [place] [id number] [place] [id number] Care Team Providers Care Transportation Maintenance Supervisor Name Role Phone Clara Stanley Primary Care Provider [phone] Dominick Mccloud MD Unavailable [phone] Reason for Visit * Reason Comments Hypertension needs to get establi shed with huc Encounter Details Date Type Department Care Team (Late st Contact Info) Description 04/27/2019 11:15 AM CHORAL TEACHER Office Visit [facility] at [facility], [facility] [address], [place] [id number] Dominick Mccloud MD [facility]. [facility] [address], [place] [id number] Hypertension (needs to get established with huc) Social History Tobacco Use Types Packs/Day Years [...] Sign Reading Time Taken Comments Blood Pressure 140/82 04/27/2019 11:13 AM CHORAL TEACHER Pulse 75 04/27/2019 11:13 AM CHORAL TEACHER Temperature - - Respiratory Rate - - Oxygen Saturation 99% 04/27/2019 11:13 AM CHORAL TEACHER Inhaled Oxygen Concentration - - Weight 160.6 kg (354 lb) 04/27/2019 11:13 AM CHORAL TEACHER Height 190.5 cm (6' 3 ) 04/27/2019 11:13 AM CHORAL TEACHER Body Mass Index 44.25 04/27/2019 11:13 AM CHORAL TEACHER documented in this encounter Patient Instructions * Patient Instructions* Cris Young - 04/27/2019 11:15 AM CHORAL TEACHER Images from the original note were not included. Patient Education Patient Education High Blood Pressure Discharge Instructions About this topic High blood pressure happens when your heart is working harder than normal to pump blood to the body. Most people have no known cause or reason for high blood pressure. High blood pressure cannot be cured. You must control it with drugs and lifestyle changes. If high blood pressure is not controlled, it can lead to heart attack, stroke, and kidney problems. What care is needed at home? ?? Ask your doctor what you need to do when you go home. Make sure you ask questions if you do not understand what the doctor says. This way you will know what you need to do. ?? Learn to take and write down your blood pressure at home. ?? Avoid stress. What follow-up care is needed? Your doctor may ask you to make visits to the office to check on your progress. Be sure to keep these visits. What drugs may be needed? The doctor may order drugs to help control your high blood pressure. Take your drugs as ordered. Donot take other prescription drugs or mswr-rol-infcxpu (OTC) drugs without talking to your doctor first. Will physical activity be limited? Talk to your doctor about the right amount of activity for you. Exercise may help you lose weight and lower your blood pressure. What changes to diet are needed? ?? Do not use salt on your food. Use herbs and spices to improve the taste. ?? Do not eat more than 2.3 grams of sodium a day. If you have high blood pressure, aim for 1.5 grams of sodium a day. Read food labels to see how much sodium is in a food. ?? Limit coffee, tea, and soda to 2 cups (480 mL) a day. ?? Limit beer, wine, and mixed drinks (alcohol) to 1 drink a day for women and 2 drinks a day for men. ?? Eat lots of fruits, vegetables, and low-fat dairy products. ?? Avoid fatty foods like fried foods or chips. ?? Talk with your dietitian about the diet changes you need and the number of calories you should eat each day. What problems could happen? ?? Heart attack, heart failure, or other heart problems ?? Stroke ?? Swelling of blood vessels ?? Kidney failure ?? Loss of eyesight ?? Memory problems ?? Fluid in the lungs What can be done to prevent this health problem? ?? Exercise regularly. ?? Avoid weight gain. ?? Stop smoking. Your doctor can tell you about stop smoking programs. ?? Learn to lower stress. When do I need to call the doctor? Activate the emergency medical system right away if you have signs of a heart attack or stroke. Call 911 in the [place] or [place]. The sooner treatment begins, the better your chances for recovery. Call for emergency help right away if you have: ?? Signs of heart attack: ? Chest pain ? Trouble breathing ? Fast heartbeat ? Feeling dizzy ?? Signs of stroke: ? Sudden numbness or weakness of the face, arm, or leg, especially on one side of the body ? Sudden confusion, trouble speaking or understanding ? Sudden trouble seeing in one or both eyes ? Sudden trouble walking, dizziness, loss of balance or coordination ? Sudden severe headache with no known cause ? Face droops on one side Call your doctor if you have: ?? Blood pressure that is 20 points higher than your normal top or bottom number ?? Two blood pressure readings higher than 180/120 ?? Very bad headache ?? Confusion ?? Sudden change in hearing or eyesight ?? Nosebleed ?? You are not feeling better in 2 to 3 days or you are feeling worse Teach Back: Helping You Understand The Teach Back Method helps you understand the information we are giving you. The idea is simple. After talking with the staff, tell them in your own words what you were just told. This helps to makesure the staff has covered each thing clearly. It also helps to explain things that may have been abit confusing. Before going home, make sure you are able to do these: ?? I can tell you about my condition. ?? I can tell you what numbers are too high for my blood pressure. ?? I can tell you what I will do if I have signs of a heart attack or stroke. Where can I learn more? [place] [employer] http://www.heart.org/HEARTORG/Conditions/HighBloodPressure/AboutHighBloodPressur e/Eweyb-Uzjx-Dixuk-Pressure_UC_002050_Article.jsp#.J9rR6CkrX6v NHS Choices http://www.nhs.uk/conditions/blood-pressure-(high)/pages/introduction.aspx [employer] [employer] https://familydoctor.org/condition/utes-tvnrx-utealxmr/ Up to Date https://www.Fashiolista/contents/vitm-aozle-cdkhpkza-ep-hfbevd-hwtrlj-the-basic s?source=see_link Last Reviewed Date 2017-04-23 Consumer Information Use and Disclaimer This information [...] or not to accept your health care provider???s advice, instructions or recommendations. Only your health care provider has the knowledge and training to provide advice that is right for you. Copyright Copyright ?? 2019 [employer] and its affiliates and/or licensors. All rights reserved. AL TEACHER documented in this encounter Progress Notes * Dominick Mccloud MD - 04/27/2019 11:15 AM CST Reason for Visit: Hypertension (needs to get established with huc) History of Present Illness: Mr. Kulkarni is a 53-year-old gentleman being seen today for further management of dyslipidemia and hypertension. He is accompanied by his . He has no known cardiac history. He has had multiple issues over the past few months, starting with a headache for which he was transferred to [facility] and diagnosed with intracranial hypertension, underwent lumbar puncture and was started on Diamox with good improvement. He has been having some abdominal pain for which he is scheduled for an EGD tomorrow.CT scan of the abdomen incidentally demonstrated a lung nodule for which he is seeing Dr. Lopez.He does little formal exercise, but remains active without chest pain or shortness of breath. ASSESSMENT AND PLAN: PROBLEM LIST: 1. Intracranial hypertension. 2. Hypertension. 3. Dyslipidemia. 4. GERD. Hypertension: Blood pressure is reasonably well controlled on his current regimen. Dyslipidemia: I would like to recheck a lipid panel. Cardiovascular risk stratification: Based on his lipid panel last year and current blood pressure his 10-year cardiovascular risk is 5.8%. At this risk level, there is minimal benefit to intensify either blood pressure or lipid therapyand I recommend focusing on lifestyle changes, exercise, and weight loss at this time. I will plan to see him back [...] block. 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 He has no history of tobacco use, reports rare alcohol use, denies illicit substance use. FAMILY HISTORY: Significant for father who had coronary disease in his 60s. REVIEW OF SYSTEMS: As per HPI. All other systems were reviewed and negative. Recommendations and Plan: Medications: Current Outpatient Medications: ??? acetaZOLAMIDE ER 500 MG 12 hr capsule, Take 500 mg by mouth 2 (two) times daily., Disp: , Rfl: ??? amlodipine 10 MG tablet, Take 1 tablet (10 mg total) by mouth daily. (Patient taking differently: Take 10 mg by mouth nightly at bedtime. ), Disp: 90 tablet, Rfl: 3 ??? cetirizine (ZYRTEC ALLERGY) 10 MG tablet, Take 10 mg by mouth nightly at bedtime. , Disp: , Rfl: ??? dicyclomine 20 MG tablet, Take 1 tablet (20 mg total) by mouth every 6 (six) hours., Disp: 20 tablet, Rfl: 0 ??? hydrocodone-acetaminophen 5-325 MG tablet, Take 1 tablet by mouth every 6 (six) hours as needed. Indications: Acute Pain < 3 Day Supply, Disp: 8 tablet, Rfl: 0 ??? omeprazole 40 MG capsule, Take 40 mg by mouth daily., Disp: , Rfl: ??? ondansetron 4 MG disintegrating tablet, Take 1 tablet (4 mg total) by mouth every 8 (eight) hours as needed for Nausea., Disp: 10 tablet, Rfl: 0 ??? pravastatin 20 MG tablet, Take 1 tablet (20 mg total) by mouth nightly at bedtime., Disp: 90 tablet, Rfl: 3 ??? ranitidine 150 MG capsule, Take 1 capsule (150 mg total) by mouth 2 (two) times daily., Disp: 60 capsule, Rfl: 1 ??? sucralfate 1 G tablet, TK 1 T PO BEFORE MEALS AND AT BEDTIME, Disp: , Rfl: ??? zolpidem (AMBIEN) 10 MG tablet, Take 1 tablet (10 mg total) by mouth nightly as needed for Sleep., Disp: 15 tablet, Rfl: 0 No Known Allergies Past Medical History: Diagnosis Date ??? 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 Depression with anxiety 12/12/2014 ??? Dry skin dermatitis 01/05/2014 ??? Hyperlipidemia 02/21/2015 ??? Hypertension, benign 01/15/2017 ??? IIH (idiopathic intracranial hypertension) ??? Morbid obesity (CMS/HCC) 02/21/2015 ??? Other and unspecified hyperlipidemia 01/06/2014 Past Surgical History: Procedure Laterality Date ??? APPENDECTOMY ??? LUMBAR PUNCTURE 03/28/2019 Social History Tobacco Use ??? Smoking status: [...] shortness of breath and snoring. Cardiovascular: See HPI Gastrointestinal: Negative for blood in stool and melena. Genitourinary: Negative for dysuria. Musculoskeletal: Negative for myalgias and new or worsening joint stiffness/pain. Skin: Negative for rash. Neurological: Negative for tingling/numbness and focal weakness. Endo/Heme/Allergies: Negative for new or significant bruising/bleeding and polydipsia. Psychiatric/Behavioral: Negative for depression and new or significant memory loss. Filed Vitals: 04/27/19 1113 BP: 140/82 Pulse: 75 SpO2: 99% Weight: (!) 160.6 kg (354 lb) Height: 6' 3 (1.905 m) Body mass index is 44.25 kg/m??. Physical Exam Rate/Rhythm: regular rhythm and normal rate . Heart Sounds: normal heart sounds, normal S1 and normal S2 no gallop, no S3 sound, no S4 sound and no murmur. . PMI: PMI not displaced. Pulses: normal pulses Right Carotid pulses 2+, Left Carotid pulses 2+, Right Femoral pulses 2+, Left Femoral pulses 2+, Right DP pulses 2+, Left DP pulses 2+, negative for edema Constitutional: healthy appearance not distressed. . Neck: neck supple no JVD. . Pulmonary/Chest Wall: effort normal and breath sounds normal . HEENT: teeth/gums normal and oropharynx clear and moist. . Abdomen: No tenderness. no mass. no hepatomegaly. No splenomegaly. Abdominal aorta not palpably enlarged. No abdominal aortic bruit. . Eyes: conjunctivae normal. Neurological: alert, oriented x 3 and appropriate for situation, . Skin: dry and warm no cyanosis and no clubbing. Musculoskeletal: no kyphosis Cardiovascular Comments: Diagnoses/Impression: 1. Mixed hyperlipidemia LIPID PANEL Chronic 2. Hypertension, benign Chronic Referring Provider: Clara Stanley PCP: ZEB Nunn AL TEACHER documented in this encounter Plan of Treatment Upcoming Encounters Date Type Department Care Team (Late st Contact Info) Description 03/28/2024 7:30 AM CHORAL TEACHER Hospital Encounter [facility] [place] [address] Antwan Stone, DIEGO [address], [place] [address] 03/28/2024 7:30 AM CHORAL TEACHER Anesthesia [place] [address] Shanelle Avila, FISH HATCHERY SPECIALIST [address] [place] [address] 03/28/2024 7:30 AM CHORAL TEACHER - 03/28/2024 8:48 AM CHORAL TEACHER Surgery [place] [address] Antwan Stone, DIE[address], [place] [address] REMOVAL OF HARDWARE LEFT FOOT 04/05/2024 8:30 AM CHORAL TEACHER Office Visit [facility], [facility] [address] [place] [address] Dominick Mccloud MD [facility]. [facility] [address] [place] [address] Scheduled Procedures Name Priority Associated Diagnoses Date/Ti me REMOVAL PLATE SCREW OR PIN SCHED BY FAX 02/08/24 [facility] PHONE ASSESS 03/28/2024 7:30 AM CHORAL TEACHER documented as of this encounter Results * (ABNORMAL) LIPID PANEL (04/27/2019 12:50 PM CHORAL TEACHER) CHOLESTEROL 167 <200 MG/DL 04/27/2019 1:32 PM CHORAL TEACHER [facility] TRIGLYCERIDES 181(H) <150 MG/DL 04/27/2019 1:32 PM [facility] HDL 36(L) >40.0 MG/DL 04/27/2019 1:32 PM [facility] LDL (CALCULATED) 95 <100 MG/DL 04/27/2019 1:32 PM [facility] NON HDL CHOLESTEROL 131(H) <130 MG/DL 04/27/2019 1:32 PM [facility] CHOL/HDL RATIO 4.6(H) 0.0 - 4.5 04/27/2019 1:32 PM [facility] VLDL CALCULATION 36 5 - 55 MG/DL 04/27/2019 1:32 PM [facility] LIPID INTERPRETATION 04/27/2019 1:32 PM [facility] Comment: [facility] REPORT RECOMMENDATIONS: ?ADULT ?CHILD ??LOW RISK: ?CHOLESTEROL ? <200 ? <170 ?TRIGLYCERIDE ?<150 ?--- ?HDL ? >=60 ?--- ?LDL ? <100 ? <110 ??BORDERLINE: ?CHOLESTEROL ? 200-239 ?? 170-199 ?TRIGLYCERIDE ?150-199 ? --- ?HDL ?40-59 ?--- ?LDL ? 100-159 ?? 110-129 ??HIGH RISK: ?CHOLESTEROL ? >=240 ?>=200 ?TRIGLYCERIDE ?>=200 ? --- ?HDL ?<40 ?--- ?LDL ? >=160 ?>=130 04/27/2019 12:5 0 PM CHORAL TEACHER Dominick Mccloud MD LABORATORY Final Result Performing Organization Address City/State/[facility] Co de Phone Number [facility] [address] [place] [address], documented in this encounter Visit Diagnoses Diagnosis Mixed hyperlipidemia- Primary Hypertension, benign Essential hypertension, benign Painful orthopaedic hardware (CMS/HCC)- Primary documented in this encounter Care Teams Transportation Maintenance Supervisor Relationship Specialty Start Date End Date Clara Stanley APNP [address] [place] [address] PCP - General NURSE PRACTITIONER 06/01/18 Dominick Mccloud MD [facility]. [facility] [address] [place] [address] [place] [facility] CARDIOVASCULAR DISEASE 03/28/19 documented as of this encounter
--- OUTSIDE RECORDS SUMMARY | 2024-03-02 03:23 | XMS_ITS | Encounter Summary ---
Author Organization [facility] Address [address] [place] [address]. [place], [place] [address] [place] [address] Care Team Providers Care Floor Mechanic Name Role Phone Clara Stanley Primary Care Provider [phone] Dominick Mccloud MD Unavailable [phone] Reason for Visit * Auth/Cert Specialty Diagnoses / Procedures Referred By Erik t Referred To Contact Diagnoses ABDOMINAL LEFT UPPER QUADRANT ABDOMINAL PAIN ANOREXIA CONSTIPATION WEIGHT LOSS Procedures EGD Referral ID Status Reason Start Date Expiration Date Visits Re quested Visits Authorized [id number] 1 1 Encounter Details Date Type Department Care Team (Late st Contact Info) Description 04/28/2019 7:40 AM WELL REACTIVATOR OPERATOR Anesthesia Event [facility] [place] [address] Kwaku Doan MD One [facility] [id number] [place] [address] [phone] (Work) Jacinto Correa CRNA Anesthesia Record Procedure Summary Procedure Name Responsible Anesthesiologist Anesthesia Start Time Anesthesia Stop Time EGD Kwaku Doan MD 04/28/19 0740 0759 Events Date Time Event Comment 04/28/2019 0650 AN GM/SVP GLOBAL PUBLISHER BUSINESS Prepped 0715 0715 AN Anesthesia Prepped 0740 An Start Patient ID and consent checked and patient reassessed. 0740 An Start Data 0742 Preoxygenation 0742 Nasal Cannula Applied 0751 An Induction 0751 Anesthesia Ready 0756 An Emergence 0757 an stop data 0759 Post Anesthetic Care Handoff I completed my handoff to the receiving nurse during which we: 1. Identified the patient 2. Identified the responsible provider 3. Reviewed the pertinent medical history 4. Discussed the surgical course 5. Reviewed intra-op anesthesia management and issues during anesthesia 6. Set expectations for post-procedure period 7. Allowed opportunity for questions and acknowledgement of understanding. 0759 An Stop Meds Name Total lidocaine (PF) (XYLOCAINE) 2% injection 50 mg propofol (DIPRIVAN) 200 mg/20 mL injecti on 150 mg lactated ringers infusion 200 mL * Agents Name O2 N2O Air * Blood No blood administrations on file. Lines, Drains, and Airways Type Details Placement Removal Peripheral IV Placement Date: 04/16 06/02; Placement Time: 06; Placed Outside of This Facility?: No; Size: 20 G; Orientation: Right; Location: Hand; Site Prep: Chlorhexidine; Local Anesthetic: None; Inserted By: Naya Mendez RN; Insertion attempts: 1; Ultrasound-guided Placement?: No; Patient Tolerance: Tolerated well; Removal Date: 04/28/19; Removal Time: 08; Removal Reason: Patient Discharged 04/28/19 0658 by Marleny Sebastian RN 04/28/19 0816 by Ester Guy RN documented in this encounter Social History Tobacco Use Types Packs/Day Years Used Date Smoking Tobacco: Never Smokeless Tobacco: Never Alcohol Use Standard Drinks/Week Comments Yes 0 (1 standard drink = 0.6 oz pur e alcohol) 6 beers weekly AUDIT-C Answer Date Recorded Frequency of Alcohol Consumption 2-3 times a dineshhemal livingston 06/07/2018 Average Number of Drinks 1 or 2 019 Frequency of Binge Drinking Not on file 05/15 Sex and Gender Information Value Date Recorded Sex Assigned at Not on file Legal Sex Male 9:00 PM CDT Gender Identity Not on file Sexual Orientation Not on file documented as of this encounter OR Notes * Anesthesia Postprocedure Evaluation - Kwaku Doan MD - 04/28/2019 9:27 AM CST Anesthesia Post-op Note Kwaku Kulkarni Procedure(s): EGD (N/A ) Anesthesia type: general Vitals: 04/28/1915 BP: 127/72 Vitals: 04/28/19 0815 Pulse: 63 Vitals: 04/28/19 0815 Resp: 30 Vitals: 04/28/19 0803 Temp: 36.7 ??C Vitals: 04/28/19 0815 SpO2: 97% Patient Location: Phase II/Outpatient Level of Consciousness: awake, alert and oriented Pain Management: adequate analgesia Airway Patency: patent Respiratory Status: spontaneous ventilation, nonlabored ventilation and room air Cardiovascular Status: hemodynamically stable Post-Op Nausea: none Postoperative Hydration: euvolemic Complications: no anesthesia complication Comments: No anesthetic related complaints are voiced REACTIVATOR OPERATOR * Anesthesia Postprocedure Evaluation - Kwaku Doan MD - 04/28/2019 8:17 AM CST Anesthesia Post-op Note Kwaku Kulkarni Procedure(s): EGD (N/A ) Anesthesia type: general Vitals: 04/28/19 0815 BP: 127/72 Vitals: 04/28/19 0815 Pulse: 63 Vitals: 04/28/19 0815 Resp: 30 Vitals: 04/28/19 0803 Temp: 36.7 ??C Vitals: 04/28/19 0815 SpO2: 97% Patient Location: Other (Endoscopy Suite) Level of Consciousness: awake, alert and oriented Pain Management: adequate analgesia Airway Patency: patent Respiratory Status: spontaneous ventilation, nonlabored ventilation and room air Cardiovascular Status: hemodynamically stable Post-Op Nausea: none Postoperative Hydration: euvolemic Complications: no anesthesia complication REACTIVATOR OPERATOR * Anesthesia Preprocedure Evaluation - Kwaku Doan MD - 04/28/2019 6:59 AM CST Anesthesia ROS/MED History Reviewed: Patient summary , Family history anesthesia, Anesthesia history , Medications , Unchecked boxes arenot applicable Pre-Anesthetic State: alert, awake and responds appropriately no history of anesthetic complications (Negative MH, FH) Pulmonary (-) recent URI, sleep apnea, asthma, smoker Cardiovascular Exercise tolerance:good (+) hypertension, hyperlipidemia(-) Valvular problems/Murmurs, CAD, arrhythmia ROS comment: EKG 03/17/19: SINUS RHYTHM MARKED LEFT AXIS DEVIATION INCOMPLETE RIGHT BUNDLE BRANCH BLOCK Compared to ECG 06/28/2018 14:37:35 Left-axis deviation now present Neuro/Psych (+) depression, psychiatric problem, (anxiety), substance use ( 6 beers weekly ), (alcohol use) Comments: IIH (idiopathic intracranial hypertension 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 GI/Hepatic/Renal (-) GERD, liver disease, renal disease Comments: Pre-op diagnosis: ABDOMINAL LEFT UPPER QUADRANT ABDOMINAL PAIN ANOREXIA CONSTIPATION WEIGHT LOSS Endo/Other (+) obese, (Morbid) (-) diabetes, hypothyroidism, arthritis, blood dyscrasia GENERAL COMMENTS Past Surgical History: No date: APPENDECTOMY 03/28/2019: LUMBAR PUNCTURE Past Medical History: No date: 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 rate 25, height 6' 3 (1.905 m), weight (!) 158.8 kg (350 lb), SpO2 98 %. No results for input(s): WBC, RBC, HGB, HCT, PLT, NA, K, CL, CO2, AGAP, BUN, CR, BUNCREATININ, GFRNON, GFR, GLU, CA in the last 72 hours. Anesthesia Plan ASA 3 Intravenous Induction Anesthesia type: general TIVA Nature, alternatives, and risks of plan discussed with patient / guardian including but not limitedto potential corneal abrasion, visual impairment or visual loss, dental injury and damage, esophageal injury, sore throat, awareness, nerve injury secondary to positioning, aspiration, respirtory depr ession, apnea, and respiratory support, hypoxemia, cardiac injury,brain injury, adverse drug reaction, drug allergic reaction, and . Patient expresses understanding that Dr Doan not liable or responsible for dental damage. All questions answered. Informed Consent Anesthetic plan and risks discussed with patient and spouse of whom consent was obtained. . REACTIVATOR OPERATOR documented in this encounter Plan of Treatment Upcoming Encounters Date Type Department Care Team (Late st Contact Info) Description 03/28/2024 7:30 AM WELL REACTIVATOR OPERATOR Hospital Encounter [facility] [place] [address] Antwan Stone, DPÁngel [address], [place] [address] 03/28/2024 7:30 AM WELL REACTIVATOR OPERATOR Anesthesia Event [place] [address] Shanelle Avila, RAEANN [address] [place] [address] 03/28/2024 7:30 AM WELL REACTIVATOR OPERATOR - 03/28/2024 8:48 AM WELL REACTIVATOR OPERATOR Surgery [place] [address] Antwan cruz, DIEGO [address], [place] [address] REMOVAL OF HARDWARE LEFT FOOT 04/05/2024 8:30 AM WELL REACTIVATOR OPERATOR Office Visit [facility], [facility] [address] [place], [place] [address] Dominick Mccloud MD Three [facility]. [facility] [address] [place], [place] [address] Scheduled Procedures Name Priority Associated Diagnoses Date/Ti me REMOVAL PLATE SCREW OR PIN SCHED BY FAX 02/08/24 [facility] PHONE ASSESS 03/28/2024 7:30 AM WELL REACTIVATOR OPERATOR documented as of this encounter Visit Diagnoses Not on filedocumented in this encounter Administered Medications Inactive Administered Medications - up to 3 most recent administrations Medication Order MAR Action Action Date Dose Rate Site lactated ringers infusion Intravenous, Continuous PRN, Starting on Priscila 04/28/19 at 0740, Until Priscila 04/28/19 at 0759, Anesthesia Intra-Op New Bag 04/28/2019 7:40 AM WELL REACTIVATOR OPERATOR lidocaine (PF) (XYLOCAINE) 2 % injection Intravenous, PRN, Starting on Priscila 04/28/19 at 0751, Until Priscila 04/28/19 at 0759, Anesthesia Intra-Op Given 04/28/2019 7:51 AM WELL REACTIVATOR OPERATOR 50 mg propofol (DIPRIVAN) IV bolus Intravenous, PRN, Starting on Priscila 04/28/19 at 0751, Until Priscila 04/28/19 at 0759, Anesthesia Intra-Op Given 04/28/2019 7:54 AM WELL REACTIVATOR OPERATOR 50 mg Given 04/28/2019 7:51 AM WELL REACTIVATOR OPERATOR 100 mg documented in this encounter Care Teams Floor Mechanic Relationship Specialty Start Date End Date Clara Stanley APNP [address] [place] [address] PCP - General NURSE PRACTITIONER 06/01/18 Dominick Mccloud MD [facility] [address] [place] [address] [place] Acquisition Analyst CARDIOVASCULAR DISEASE 03/28/19 documented as of this encounter
--- OUTSIDE RECORDS SUMMARY | 2024-03-02 03:23 | XMS_ITS | Encounter Summary ---
Author Organization [facility] Address [address] [place] [address]. [place], [place] [address] [place] [address] Care Team Providers Care Marketing Sales Manager Name Role Phone Clara Stanley Primary Care Provider [phone] Dominick Mccloud MD Unavailable [phone] Reason for Visit * Auth/Cert Specialty Diagnoses / Procedures Referred By Contac t Referred To Contact Diagnoses ABDOMINAL LEFT UPPER QUADRANT ABDOMINAL PAIN ANOREXIA CONSTIPATION WEIGHT LOSS Procedures EGD Referral ID Status Reason Start Date Expiration Date Visits Re quested Visits Authorized [id number] 1 1 Encounter Details Date Type Department Care Team (Late st Contact Info) Description 04/28/2019 7:30 AM UPSTAIRS MAID - 04/28/2019 8:00 AM UPSTAIRS MAID Surgery [facility] [place] [address] Agnes Goff MD [address] [address] EGD Surgery Details Date/Time Status Location OR Service Patient Class Case Class Case Type Trauma Case? 04/28/2019 7:30 AM Posted [facility] - Elective No Panel 1 Procedure LRB Anes Op Region Wound Class Comments EGD N/A General Clean Contaminated normal egd Surgeon Surgeon Role Service Panel Agnes Goff MD Primary Gastroenterology 1 Case Notes SCHEDULED BY FAX 04/15/19 LB documented in this encounter Social History Tobacco [...] Sign Reading Time Taken Comments Blood Pressure 180/77 04/28/2019 7:56 AM UPSTAIRS MAID Pulse 78 04/28/2019 7:56 AM UPSTAIRS MAID Temperature 36.7 ??C (98.1 ??F) 04/28/2019 7:56 AM CS T Respiratory Rate 14 04/28/2019 7:56 AM UPSTAIRS MAID Oxygen Saturation 97% 04/28/2019 7:56 AM UPSTAIRS MAID Inhaled Oxygen Concentration - - Weight 158.8 kg (350 lb) 04/21/2019 3:25 PM UPSTAIRS MAID Height 190.5 cm (6' 3 ) 04/21/2019 3:25 PM UPSTAIRS MAID Body Mass Index 43.75 04/21/2019 3:25 PM UPSTAIRS MAID documented in this encounter Discharge Instructions * Discharge Instructions* Agnes Goff MD - 04/28/2019 8:01 AM UPSTAIRS MAID Normal EGD AIRS MAID * Attachments The following attachments cannot be sent through Care Everywhere. * Upper GI Endoscopy Discharge Instructions (Taiwanese) documented in this encounter Medications at Time [...] (six) hours. 20 tablet 0 09/26/19 20 omeprazole 40 MG capsule Take 40 mg by mouth daily. 09/26/19 20 pravastatin 20 MG tabletIndications:M ixed hyperlipidemia [...] 05/01/19 20 documented as of this encounter H&P Notes * Agnes Goff MD - 04/28/2019 7:46 AM CST Agnes Goff MD, FACG, FACP Attending Provider: Agnes Goff MD PCP: ZEB Nunn PATIENT: Kwaku Kulakrni : 1965 Date of Visit: 04/28/2019 HPI: Kwaku Kulkarni is an 53-year-old male who presents for epigastric pain, weight loss, anorexia. Patient Active Problem List Diagnosis ??? Caffeine use ??? Encounter for preventive health examination ??? Depression with anxiety ??? Dry skin dermatitis ??? Hypertension, benign ??? Insomnia ??? Obesity ??? Hyperlipidemia ??? Morbid obesity (CMS/HCC) ??? Essential hypertension ??? 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 IIH (idiopathic intracranial hypertension) Past Medical History: Diagnosis Date ??? 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 Depression with anxiety 12/12/2014 ??? Dry skin dermatitis 01/05/2014 ??? Hyperlipidemia 02/21/2015 ??? Hypertension, benign 01/15/2017 ??? IIH (idiopathic intracranial hypertension) ??? Morbid obesity (CMS/HCC) 02/21/2015 ??? Other and unspecified hyperlipidemia 01/06/2014 Past Surgical History: Procedure Laterality Date ??? APPENDECTOMY ??? LUMBAR PUNCTURE 03/28/2019 Family History Problem Relation Name Age of Onset ??? Cancer Mother bone ??? Heart Disease Father 65 Social History Socioeconomic History ??? Marital status: [...] file Gets together: Not on file Attends jain service: Not on file Active member of [...] Self Care Not Asked Social History Narrative Current Facility-Administered Medications: ??? lactated ringers infusion, , Intravenous, Continuous, Kwaku Doan MD No Known Allergies Travel Exposure: RETIRED Traveled outside of the [place] in the last month: No No current facility-administered medications on file prior to encounter. Current Outpatient Medications on File Prior to Encounter Medication Sig ??? acetaZOLAMIDE ER 500 MG 12 hr capsule Take 500 mg by mouth 2 (two) times daily. ??? amlodipine 10 MG tablet Take 1 tablet (10 mg total) by mouth daily. (Patient taking differently: Take 10 mg by mouth nightly at bedtime. ) ??? omeprazole 40 MG capsule Take 40 mg by mouth daily. ??? pravastatin 20 MG tablet Take 1 tablet (20 mg total) by mouth nightly at bedtime. ??? sucralfate 1 G tablet TK 1 T PO BEFORE MEALS AND AT BEDTIME ??? cetirizine (ZYRTEC ALLERGY) 10 MG tablet Take 10 mg by mouth nightly at bedtime. ??? dicyclomine 20 MG tablet Take 1 tablet (20 mg total) by mouth every 6 (six) hours. ??? ranitidine 150 MG capsule Take 1 capsule (150 mg total) by mouth 2 (two) times daily. (Patient not taking: Reported on 04/27/2019) ??? zolpidem (AMBIEN) 10 MG tablet Take 1 tablet (10 mg total) by mouth nightly as needed for Sleep. (Patient not taking: Reported on 04/27/2019) Blood pressure 139/71, pulse 76, temperature 98.1 ??F (36.7 ??C), temperature source Temporal, resp. rate 25, height 6' 3 (1.905 m), weight (!) 158.8 kg (350 lb), SpO2 98 %. Physical Exam Constitutional: he appears well-developed and well-nourished. Cardiovascular: Normal rate. Pulmonary/Chest: Breath sounds normal. Abdominal: Soft, non-tender. he exhibits no edema. Assessment & Plan: EGD AGNES GOFF MD 04/28/2019 AIRS MAID documented in this encounter OR Notes * Op Note - Agnes Goff MD - 04/28/2019 7:50 AM CST AGNES GOFF MD, FACG, FACP UPPER ENDOSCOPY INDICATION: LUQ/epigastric pain, anorexia, weight loss. POST-OP: Normal. SEDATION: Per anesthesia With the patient in the left lateral decubitus position, the Olympus GIF [id number] upper endoscope wasused to easily intubate the patient???s esophagus and advanced to the third portion of the duodenum. Careful inspection of the mucosa was made upon insertion and withdrawal of the endoscope with retroflexion in the stomach. FINDINGS: Esophagus: SC Jx at 40 cm. Esophagus normal. No esophagitis, stricture, mass or Maldonado???s. Stomach: Fundus, body and antrum normal. No ulceration, erosion, inflammation, AVM or malignancy. Duodenum: Normal in the bulb, second and third portion. No complications, blood loss or implants. ASSESSMENT AND PLAN: A. LUQ/epigastric pain, anorexia, weight loss: - Significantly improved but not resolved on omeprazole BID and Carafate 1 gr QID; continue - No esophagitis or Maldonado???s - Observe for now and if symptoms persist consider TCA B. Constipation: resolved; patient no longer needing or taking Linzess. Thank you for allowing me to care for your patient. He will follow-up with my office in one month. Agnes Goff M.D. AIRS MAID documented in this encounter Plan of Treatment Upcoming Encounters Date Type Department Care Team (Late st Contact Info) Description 03/28/2024 7:30 AM UPSTAIRS MAID Hospital Encounter [facility] [place] [address] Antwan Stone DPM [address], [place] [address] 03/28/2024 7:30 AM UPSTAIRS MAID Anesthesia Event [facility] [place] [facility] [place] [address] Shanelle Avila, YARD SWITCHER [address] [place] [address] 03/28/2024 7:30 AM UPSTAIRS MAID - 03/28/2024 8:48 AM UPSTAIRS MAID Surgery [facility] [place] [address] Antwan Stone, DIEGO [address], [place] [address] REMOVAL OF HARDWARE LEFT FOOT 04/05/2024 8:30 AM UPSTAIRS MAID Office Visit Darren Hernandez'Marbella fleming THREE [facility], [facility] [address] [place] [address] Dominick Mccloud MD Three [facility]. [facility] [address] [place] [address] Scheduled Procedures Name Priority Associated Diagnoses Date/Ti me REMOVAL PLATE SCREW OR PIN SCHED BY FAX 02/08/24 JUANITOS PHONE ASSESS 03/28/2024 7:30 AM UPSTAIRS MAID documented as of this encounter Procedures Procedure Name Priority Date/Time Associated Diagnosis Comments EGD 04/28/2019 7:32 AM UPSTAIRS MAID ABDOMINAL LEFT UPPER QUADRANT ABDOMINAL PAIN ANOREXIA CONSTIPATION WEIGHT LOSS Case Notes SCHEDULED BY FAX 04/15/19 LB EGD Routine 04/28/2019 6:49 AM UPSTAIRS MAID documented in this encounter Visit Diagnoses Not on filedocumented in this encounter Administered Medications Inactive Administered Medications - up to 3 most recent administrations Medication Order MAR Action Action Date Dose Rate Site lactated ringers infusion at 10 mL/hr, Intravenous, Continuous, Starting on Priscila 04/28/19 at 0730, Until Priscila 04/28/19 at 1047, Infuse at TKO rate, Pre-Op documented in this encounter Active and Recently Administered Medications Times are shown in UPSTAIRS MAID. Continuous Medication Order 04/26/2019 04/27/2019 04/28/2019 lactated ringers infusion at 10 mL/hr, Intravenous, Continuous, Starting on Priscila 04/28/19 at 0730, Until Priscila 04/28/19 at 1047, Infuse at TKO rate, Pre-Op 0730 (Canceled Entry - Provider: Automatic Discharge Provider - Comment: Automatically canceled at discontinue of medication order) documented in this encounter Care Teams Marketing Sales Manager Relationship Specialty Start Date End Date Clara Stanley APNP [address] [place] [address] PCP - General NURSE PRACTITIONER 06/01/18 Dominick Mccloud MD [facility] [address] [place] [address] [place] Safe Expert CARDIOVASCULAR DISEASE 03/28/19 documented as of this encounter
--- OUTSIDE RECORDS SUMMARY | 2024-03-02 03:23 | XMS_ITS | Encounter Summary ---
Author Organization [facility] Address [address] [place] [address]. [place], [place] [address] [place] [address] Care Team Providers Care Customer Success Associate Name Role Phone Clara Stanley Primary Care Provider [phone] Dominick Mccloud MD Unavailable [phone] Reason for Visit * Reason Onset Date Comments Results 04/14/2019 Encounter Details Date Type Department Care Team (Late st Contact Info) Description 04/14/2019 Telephone [facility] Medical [facility] Family & Internal Medicine [facility] [address] [place] [address] Clara Stanley APNP [address] [place] [address] Results Social History Tobacco Use [...] of this encounter Progress Notes * Zoila Amador MA - 04/14/2019 10:17 AM CST Spoke with pt about letter from Dr. Pittman. Clara wrote urgent GI referral and f/u w/ neuro. I spoke to pt about all of this and pt stated that he saw a couple days ago and has an appt to have an endoscopy in May. Pt also is going to f/u with neuro @ [facility] 04/25/[facility]. OUT AND MARKING 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 documented in this encounter Plan of Treatment Upcoming Encounters Date Type Department Care Team (Late st Contact Info) Description 03/28/2024 7:30 AM CUT OUT AND MARKING 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 Hospital Encounter [facility] [place] [address] Antwan Stone DPM [address], [place] [address] 03/28/2024 7:30 AM CUT OUT AND MARKING 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 Anesthesia Event [facility] OR [facility] [place] [address] Shanelle Avila, RESIDENTIAL PROPERTY TAX APPRAISER [address] [place] [address] 03/28/2024 7:30 AM CUT OUT AND MARKING 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 - 03/28/2024 8:48 AM CUT OUT AND MARKING 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 Surgery [place] [address] Antwan Stone DPM [address], [place] [address] REMOVAL OF HARDWARE LEFT FOOT 04/05/2024 8:30 AM CUT OUT AND MARKING 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 Office Visit [facility]audhari-O'F allon THREE [facility], [facility] [address] [place] [address] Dominick Mccloud MD Three [facility]. [facility] [address] [place] [address] Scheduled Procedures Name Priority Associated Diagnoses Date/Ti me REMOVAL PLATE SCREW OR PIN SCHED BY FAX 02/08/24 [facility] PHONE ASSESS 03/28/2024 7:30 AM CUT OUT AND MARKING 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 documented as of this encounter Visit Diagnoses Not on filedocumented in this encounter Care Teams Customer Success Associate Relationship Specialty Start Date End Date Clara Stanley APNP [address] [place] [address] PCP - General NURSE PRACTITIONER 06/01/18 Dominick Mccloud MD [facility] [address] [place] [address] [place] Potable Water Treatment Operator CARDIOVASCULAR DISEASE 03/28/19 documented as of this encounter
--- OUTSIDE RECORDS SUMMARY | 2024-03-02 03:23 | XMS_ITS | Encounter Summary ---
Author Organization [facility] Address [address] [place] [address]. [place], [place] [id number] [place] [address] Care Team Providers Care Pilot Fuel Engineer Name Role Phone Clara Stanley Primary Care Provider [phone] Dominick Mccloud MD Unavailable [phone] Reason for Visit * Reason Onset Date Comments ER F/U 04/11/2019 Encounter Details Date Type Department Care Team (Late st Contact Info) Description 04/11/2019 Telephone [facility] - [facility] [address] [facility] [address] [place] [id number] Hector Delgado MD [address] [facility] [address] [place], [place] [id number] ER F/U Social History Tobacco Use Types Packs/Day Years [...] as of this encounter Progress Notes * Carline Bautista - 04/11/2019 9:17 AM CST Spoke with patient's appt scheduled. ICAL PRODUCT SPECIALIST * Patria Denson - 04/11/2019 7:40 AM CST Pt seen by Dr Delgado in ER this weekend. Dr Delgado told pt to call office to make urgent appt to be seen today. is calling for this. Please call her (Faith--[phone]) for appt time for today. ICAL PRODUCT SPECIALIST documented in this encounter Plan of Treatment Upcoming Encounters Date Type Department Care Team (Late st Contact Info) Description 03/28/2024 7:30 AM CLINICAL PRODUCT SPECIALIST Hospital Encounter [facility] [place] [address] Antwan Stone DPM [address] [place] [address] 03/28/2024 7:30 AM CLINICAL PRODUCT SPECIALIST Anesthesia Event [place] [address] Shanelle Avila, [employer] [address] [place] [address] 03/28/2024 7:30 AM CLINICAL PRODUCT SPECIALIST - 03/28/2024 8:48 AM CLINICAL PRODUCT SPECIALIST Surgery [place] [address] Antwan Stone, D[address], [place] [address] REMOVAL OF HARDWARE LEFT FOOT 04/05/2024 8:30 AM CLINICAL PRODUCT SPECIALIST Office Visit [facility] [address] [place] [address] Dominick Mccloud MD [address] [facility]. [facility] [address] [place] [address] Scheduled Procedures Name Priority Associated Diagnoses Date/Ti me REMOVAL PLATE SCREW OR PIN SCHED BY FAX 02/08/24 [facility] PHONE ASSESS 03/28/2024 7:30 AM CLINICAL PRODUCT SPECIALIST documented as of this encounter Visit Diagnoses Not on filedocumented in this encounter Care Teams Pilot Fuel Engineer Relationship Specialty Start Date End Date Clara Stanley APNP [address] [place] [id number] PCP - General NURSE PRACTITIONER 06/01/18 Dominick Mccloud MD Three [facility]. [facility] [address] [place] [address] Fely Plater Hot Dip CARDIOVASCULAR DISEASE 03/28/19 documented as of this encounter
--- OUTSIDE RECORDS SUMMARY | 2024-03-02 03:23 | XMS_ITS | Encounter Summary ---
Author Organization [facility] Address [address] [place] [address]. [place], [place] [address] [place] [id number] Care Team Providers Care Telephone Diaphragm Assembler Name Role Phone Clara Stanley Primary Care Provider [phone] Dominick Mccloud MD Unavailable Reason for Visit * Reason Comments Abdominal Pain Encounter Details Date Type Department Care Team (Late st Contact Info) Description 04/09/2019 3:42 PM MANAGER RESEARCH - 04/09/2019 6:48 PM MANAGER RESEARCH Emergency [facility] [place] [address] Luis Dasilva MD Abdominal Pain Discharge Disposition: Home or Self Care (Routine [...] Sign Reading Time Taken Comments Blood Pressure 123/77 04/09/2019 5:30 PM MANAGER RESEARCH Pulse 84 04/09/2019 5:30 PM MANAGER RESEARCH Temperature 36.6 ??C (97.9 ??F) 04/09/2019 2:57 PM CS T Respiratory Rate 16 04/09/2019 5:30 PM MANAGER RESEARCH Oxygen Saturation 99% 04/09/2019 5:30 PM MANAGER RESEARCH Inhaled Oxygen Concentration - - Weight 160.8 kg (354 lb 8 oz) 04/09/2019 2:57 PM MANAGER RESEARCH Height 190.5 cm (6' 3 ) 04/09/2019 2:57 PM MANAGER RESEARCH Body Mass Index 44.31 04/09/2019 2:57 PM MANAGER RESEARCH documented in this encounter Discharge Instructions * Discharge Instructions* Luis Dasilva MD - 04/09/2019 6:03 PM MANAGER RESEARCH Return for increasing abdominal pain, inability to hold down fluids or other problems or concerns. GER RESEARCH * Attachments The following attachments cannot be sent through Care Everywhere. * Severe Abdominal Pain Discharge Instructions, Adult (Burundian) documented in this encounter Medications at Time [...] Muscle Spasms. 30 tablet 0 04/11/19 20 dicyclomine 20 MG tablet Take 1 tablet (20 mg total) by mouth every 6 (six) hours. 20 tablet 0 09/26/19 20 hydrocodone-acetami nophen 5-325 MG tabletIndications:A cute Pain < 3 Day Supply Take 1 tablet by mouth every 6 (six) hours as needed. Indications: Acute Pain < 3 Day Supply 8 tablet 0 04/27/19 20 ondansetron 4 MG disintegrating tablet Take [...] 05/01/19 20 documented as of this encounter ED Notes * Luis Dasilva MD - 04/09/2019 4:57 PM CST Chief Complaint Chief Complaint Patient presents with ??? Abdominal Pain History of Present Illness This patient presents with abdominal pain this been constant for the past 5 days. The patient's pain started in the left upper quadrant and then it is been diffuse and radiating to his back. Pain described as crampy. It waxes and wanes but is constant. He has had small amounts of diarrhea but no nausea or vomiting. He has not had any recent antibiotics. He denies any blood in his stool. He deniesany dysuria. The patient had a CT abdomen pelvis 5 days ago which was negative. His pain has continued. The patient had an ultrasound today as an outpatient but does not know the results. Medical History ALLERGIES: No Known Allergies MEDICATIONS: Prior to Admission medications Medication Sig Start Date End Date Taking? Authorizing Provider dicyclomine 20 MG tablet Take 1 tablet (20 mg total) by mouth every 6 (six) hours. 04/09/19 Yes Sharonda Dasilva MD hydrocodone-acetaminophen 5-325 MG tablet Take 1 tablet by mouth every 6 (six) hours as needed. Indications: Acute Pain < 3 Day Supply 04/09/19 Yes Luis Dasilva MD acetaZOLAMIDE ER 500 MG 12 hr capsule Take 500 mg by mouth 2 (two) times daily. 03/24/19 Doc Abstract amlodipine 10 MG tablet Take 1 tablet (10 mg total) by mouth daily. Patient taking differently: Take 10 mg by mouth nightly at bedtime. 08/02/18 ZEB Nunn cetirizine (ZYRTEC ALLERGY) 10 MG tablet Take 10 mg by mouth nightly at bedtime. 08/08/14 Doc Abstract cyclobenzaprine 10 MG tablet Take 1 tablet (10 mg total) by mouth 3 (three) times daily as needed for Muscle Spasms. 04/01/19 04/11/19 ZEB Nunn ondansetron 4 MG disintegrating tablet Take 1 tablet (4 mg total) by mouth every 8 (eight) hours asneeded for Nausea. 03/17/19 Higinio Dodson MD pravastatin 20 MG tablet Take 1 tablet (20 mg total) by mouth nightly at bedtime. 08/02/18 ZEB Nunn ranitidine 150 MG capsule Take 1 capsule (150 mg total) by mouth 2 (two) times daily. 04/01/19 ZEB Jackman zolpidem (AMBIEN) 10 MG tablet Take 1 tablet (10 mg total) by mouth nightly as needed for Sleep. 04/01/19 05/01/19 ZEB Nunn PAST MEDICAL HISTORY: Past Medical History: Diagnosis Date ??? 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 Depression with anxiety 12/12/2014 ??? Dry skin dermatitis 01/05/2014 ??? Hyperlipidemia 02/21/2015 ??? Hypertension, benign 01/15/2017 ??? IIH (idiopathic intracranial hypertension) ??? Morbid obesity (CMS/HCC) 02/21/2015 ??? Other and unspecified hyperlipidemia 01/06/2014 PAST SURGICAL HISTORY: Past Surgical History: Procedure Laterality Date ??? APPENDECTOMY ??? LUMBAR PUNCTURE 03/28/2019 FAMILY HISTORY: Family History Problem Relation Name Age of Onset ??? Cancer Mother bone ??? Heart Disease Father 65 SOCIAL HISTORY: Social History Tobacco Use ??? Smoking status: Never Smoker ??? Smokeless tobacco: Never Used Substance Use Topics ??? Alcohol use: Yes Frequency: 2-3 times a week Drinks per session: 1 or 2 Comment: 6 beers weekly ??? Drug use: No Review of Systems Review of Systems Constitutional: Negative for chills and fever. HENT: Negative for congestion and sore throat. Eyes: Negative for discharge. Respiratory: Negative for shortness of breath. Cardiovascular: Negative for chest pain. Gastrointestinal: Positive for abdominal pain and diarrhea. Negative for nausea and vomiting. Endocrine: Negative for polyuria. Genitourinary: Negative for difficulty urinating. Musculoskeletal: Negative for back pain. Skin: Negative for rash. Neurological: Negative for light-headedness. Psychiatric/Behavioral: Negative for dysphoric mood. Physical Exam Filed Vitals: 04/09/19 1457 04/09/19 1715 04/09/19 1730 BP: (!) 166/82 (!) 153/80 123/77 Pulse: 91 78 84 Resp: 18 18 16 Temp: 97.9 ??F (36.6 ??C) TempSrc: Oral SpO2: 99% 100% 99% Weight: (!) 160.8 kg (354 lb 8 oz) Height: 6' 3 (1.905 m) Physical Exam Constitutional: He is oriented to person, place, and time. No distress. HENT: Head: Normocephalic. Eyes: Conjunctivae are normal. Cardiovascular: Normal rate and normal heart sounds. Pulmonary/Chest: Effort normal and breath sounds normal. Abdominal: Soft. He exhibits no distension. There is tenderness. Mild diffuse abdominal tenderness Neurological: He is alert and oriented to person, place, and time. Skin: Skin is warm and dry. He is not diaphoretic. Psychiatric: He has a normal mood and affect. Diagnostic Studies / Procedures ELECTROCARDIOGRAMS: No results found for this visit on 04/09/19. LABORATORY STUDIES: Results for orders placed or performed during the hospital encounter of 04/09/19 CBC W/DIFF AUTOMATED Result Value Ref Range WBC 10.8 4.5 - 11.0 x10'3/uL RBC 5.07 4.70 - 6.10 x10'6/uL HGB 14.2 14.0 - 18.0 G/DL HCT 43.6 43.0 - 54.0 % MCV 86.0 80.0 - 94.0 FL MCH 28.0 27.0 - 31.0 PG MCHC 32.6 32.0 - 36.0 G/DL RDW 13.1 11.5 - 14.5 % PLT 302 130 - 400 x10'3/uL MPV 11.1 9.3 - 12.2 FL DIFFERENTIAL TYPE AUTOMATED DIFFERENTIAL NEUTROPHILS 71.7 % LYMPHOCYTES 15.2 % MONOCYTES 8.9 % EOSINOPHILS 3.0 % BASOPHILS 0.6 % IMMATURE GRANS 0.6 % ABS. NEUTROPHILS TOTAL 7.74 (H) 1.80 - 7.70 x10'3/uL ABS. LYMPHOCYTES 1.64 1.00 - 4.80 x10'3/uL ABS. MONOCYTES 0.96 (H) 0.30 - 0.82 x10'3/uL ABS. EOSINOPHILS 0.32 0.04 - 0.54 x10'3/uL ABS. BASOPHILS 0.06 0.01 - 0.08 x10'3/uL ABS. IMMATURE GRANULOCYTES 0.06 0.00 - 0.49 x10'3/uL COMPREHENSIVE METABOLIC PANEL Result Value Ref Range GLUCOSE 95 70 - 99 MG/DL BUN 10 7 - 18 MG/DL CREATININE 0.86 0.7 - 1.3 MG/DL SODIUM 137 136 - 145 MMOL/L POTASSIUM 3.9 3.5 - 5.1 MMOL/L CHLORIDE 106 100 - 108 MMOL/L CO2 24.2 21 - 32 MMOL/L CALCIUM 9.5 8.5 - 10.1 MG/DL TOTAL BILIRUBIN 0.5 0.2 - 1.2 MG/DL TOTAL PROTEIN 8.4 (H) 6.4 - 8.2 G/DL ALBUMIN 4.2 3.4 - 5.0 G/DL AST 19 15 - 37 U/L ALT 31 16 - 60 U/L ALK PHOS 82 50 - 136 U/L ANION GAP 6.8 5 - 15 MMOL/L BUN CREATININE RATIO 11.6 6 - 26 A/G RATIO 1.0 1.0 - 2.0 RATIO eGFR Non-Afr. Amer. >90 >90 ML/MIN/1.73 M2 eGFR Afr. Amer. >90 >90 ML/MIN/1.73 M2 LIPASE Result Value Ref Range LIPASE 128 73 - 393 UNITS/L URINALYSIS Result Value Ref Range Specimen Type URINE CLEAN CATCH COLOR YELLOW TRANSPARENCY CLOUDY Specific [place] (U) 1.012 1.001 - 1.030 U PH 6.0 5.0 - 9.0 LEUKOCYTE ESTERASE NEGATIVE NEGATIVE NITRITES NEGATIVE NEGATIVE PROTEIN, URINE NEGATIVE <30 MG/DL URINE GLUCOSE NEGATIVE NEGATIVE MG/DL U KETONES NEGATIVE NEGATIVE MG/DL UROBILINOGEN NEGATIVE NEGATIVE MG/DL Urine Bilirubin NEGATIVE NEGATIVE MG/DL BLOOD NEGATIVE NEGATIVE CULTURE & SENSITIVITY INDICATED? CULTURE IS NOT INDICATED IMAGING STUDIES XR ABD KUB Final Result by User, [id number] (04/09 0895) Examination: XR ABD KUB Exam time: 04/09/2019 4:16 PM Clinical history: Abdominal pain over the past 1-2 weeks. Constipation. Comparison: No prior exam Technique: AP supine views Findings: Left and right sides of the abdomen were not fully included. Nonobstructive bowel gas pattern. Gas is present within nondistended stomach as well as nondistended small bowel and colon. There is only minimal stool density visualized within the colon. No evidence of focal abnormal soft tissue densities or calcifications. Surgical clips right lower quadrant. IMPRESSION: Nonobstructive bowel gas pattern. No evidence of significant colonic stool burden. Course / Medical Decision Making MDM Number of Diagnoses or Management Options Generalized abdominal pain: Diagnosis management comments: This patient presents with abdominal pain. Patient has had abdominalpain for approximately 5 days. He been negative CT abdomen pelvis 5 days ago. He had a negative outpatient ultrasound today. His laboratories are normal. He does not have an elevated white blood cellcount. He does not have peritoneal signs on his abdominal exam. I do not believe he has an acute surgical emergency. There is no evidence of acute cholecystitis, pancreatitis or diverticulitis. At this time I believe the patient can be discharged. The patient has seen Dr. Hector Delgado in the past for gastroenterology. I called and discussed the case with him. He is going to see the patient in follow-up next week. Amount and/or Complexity of Data Reviewed Decide to obtain previous medical records or to obtain history from someone other than the patient:yes Clinical Impression Generalized abdominal pain (Primary) Disposition: Discharge Luis Dasilva MD 04/09/19 0543 GER RESEARCH * Matteo Krishnamurthy PA-C - 04/09/2019 3:46 PM CST [place], [place] EMERGENCY DEPARTMENT ENCOUNTER Medical Screening Examination 04/09/19 3:46 PM Chief Complaint : Abdominal Pain HPI : Kwaku Kulkarni is a 53-year-old male who presents with abdominal pain. Here with recurrent abdominal pain and associated diarrhea. Has had outpatient CT and USN this week. Admits to abdominal pain and stool urgency. Vital Signs: Filed Vitals: 04/09/19 1457 BP: (!) 166/82 Pulse: 91 Resp: 18 Temp: 97.9 ??F (36.6 ??C) TempSrc: Oral SpO2: 99% Weight: (!) 160.8 kg (354 lb 8 oz) Height: 6' 3 (1.905 m) Physical exam: A brief physical exam was completed to facilitate/expedite patient care. Pertinent PE findings: Mild abdominal tenderness. Plan: Necessary labs/imaging/medications ordered to initiate pt care. Matteo Krishnamurthy PA-C 04/09/19 1554 Cosigned by Luis Dasilva MD at 04/09/2019 6:15 PM MANAGER RESEARCH GER RESEARCH GER RESEARCH * Shanelle Morales RN - 04/09/2019 3:06 PM CST Pt presents to ED after having abdominal ultrasound for persistent abdominal pain over the last 1-2weeks. Pt reports having severe headaches in early February 2019 and was hospitalized at [facility] in [facility] with Idiopathic Intracranial Hypertension and aseptic meningitis. Pt states he was advised that this was due to overuse of Advil that he was taking for the severe headaches. Pt reports being discharged 03/29/19 with new Rx for diamox and topiramate. Pt reports stopping topiramate due to sideeffects but is still taking diamox which has helped headaches but now has severe abdominal pain which is worse at night. Also reports mild diarrhea. GER RESEARCH documented in this encounter Plan of Treatment Upcoming Encounters Date Type Department Care Team (Late st Contact Info) Description 03/28/2024 7:30 AM MANAGER RESEARCH Hospital Encounter [facility] [place] [address] Antwan Stone, DIE[address], [place] [address] 03/28/2024 7:30 AM MANAGER RESEARCH Anesthesia Event [place] [address] Shanelle Avila, EDUCATION RN [address] [place] [address] 03/28/2024 7:30 AM MANAGER RESEARCH - 03/28/2024 8:48 AM MANAGER RESEARCH Surgery [place] [address] Antwan Stone, [address], [place] [address] REMOVAL OF HARDWARE LEFT FOOT 04/05/2024 8:30 AM MANAGER RESEARCH Office Visit Darren Chaudhari-O'F allon [facility] [address] [place] [address] Dominick Mccloud MD [facility]. [facility] [address] [place] [address] Scheduled Procedures Name Priority Associated Diagnoses Date/Ti me REMOVAL PLATE SCREW OR PIN SCHED BY FAX 02/08/24 [facility] PHONE ASSESS 03/28/2024 7:30 AM MANAGER RESEARCH documented as of this encounter Procedures Procedure Name Priority Date/Time Associated Diagnosis Comments XR ABD KUB STAT 04/09/2019 4:32 PM MANAGER RESEARCH COMPREHENSIVE METABOLIC PANEL STAT 04/09/2019 4:14 PM MANAGER RESEARCH CBC W/DIFF AUTOMATED STAT 04/09/2019 4:14 PM MANAGER RESEARCH LIPASE STAT 04/09/2019 4:14 PM MANAGER RESEARCH URINALYSIS STAT 04/09/2019 4:13 PM MANAGER RESEARCH documented in this encounter Results * XR ABD KUB (04/09/2019 4:32 PM MANAGER RESEARCH) Anatomical Region Laterality Modality Abdomen Radiographic Trang ging 04/09/2019 4:35 PM MANAGER RESEARCH Impressions 04/09/2019 4:36 PM MANAGER RESEARCH IMPRESSION: Nonobstructive bowel gas pattern. No evidence of significant colonic stool burden. Narrative 04/09/2019 4:36 PM MANAGER RESEARCH Examination: XR ABD KUB Exam time: 04/09/2019 4:16 PM Clinical history: Abdominal pain over the past 1-2 weeks. Constipation. Comparison: No prior exam Technique: AP supine views Findings: Left and right sides of the abdomen were not fully included. Nonobstructive bowel gas pattern. Gas is present within nondistended stomach as well as nondistended small bowel and colon. There is only minimal stool density visualized within the colon. No evidence of focal abnormal soft tissue densities or calcifications. Surgical clips right lower quadrant. Procedure Note Dominick Hanson MD - 04/09/2019 Examination: XR ABD KUB Exam time: 04/09/2019 4:16 PM Clinical history: Abdominal pain over the past 1-2 weeks. Constipation. Comparison: No prior exam Technique: AP supine views Findings: Left and right sides of the abdomen were not fully included. Nonobstructive bowel gas pattern. Gas is present within nondistended stomach as well as nondistended small bowel and colon. There is only minimal stool density visualized within the colon. No evidence of focal abnormal soft tissue densities or calcifications. Surgical clips right lower quadrant. IMPRESSION: Nonobstructive bowel gas pattern. No evidence of significant colonicstool burden. Matteo Krishnamurthy PA-C GENERAL IMAGING Final Result * LIPASE (04/09/2019 4:14 PM MANAGER RESEARCH) LIPASE 128 73 - 393 UNITS/L 04/09/2019 5:03 PM [facility] 04/09/2019 4:14 PM MANAGER RESEARCH Matteo Krishnamurthy PA-C LABORATORY Final Result [facility] [address] [place] [address], [place] [phone] * (ABNORMAL) COMPREHENSIVE METABOLIC PANEL (04/09/2019 4:14 PM MANAGER RESEARCH) GLUCOSE 95 70 - 99 MG/DL 04/09/2019 5:03 PM [facility] BUN 10 7 - 18 MG/DL 04/09/2019 5:03 PM [facility] CREATININE S/P/B 0.86 0.7 - 1.3 MG/DL 04/09/2019 5:03 PM [facility] SODIUM S/P/B 137 136 - 145 MMOL/L 04/09/2019 5:03 PM [facility] POTASSIUM S/P/B 3.9 3.5 - 5.1 MMOL/L 04/09/2019 5:03 PM [facility] CHLORIDE S/P/B 106 100 - 108 MMOL/L 04/09/2019 5:03 PM [facility] CO2 24.2 21 - 32 MMOL/L 04/09/2019 5:03 PM [facility] CALCIUM S/P/B 9.5 8.5 - 10.1 MG/DL 04/09/2019 5:03 PM [facility] BILIRUBIN TOTAL S/P/B 0.5 0.2 - 1.2 MG/DL 04/09/2019 5:03 PM [facility] TOTAL PROTEIN S/P/B 8.4(H) 6.4 - 8.2 G/DL 04/09/2019 5:03 PM [facility] ALBUMIN S/P/B 4.2 3.4 - 5.0 G/DL 04/09/2019 5:03 PM [facility] AST 19 15 - 37 U/L 04/09/2019 5:03 PM [facility] ALT 31 16 - 60 U/L 04/09/2019 5:03 PM [facility] ALKALINE PHOSPHATASE S/P/B 82 50 - 136 U/L 04/09/2019 5:03 PM [facility] ANION GAP 6.8 5 - 15 MMOL/L 04/09/2019 5:03 PM [facility] BUN CREATININE RATIO 11.6 6 - 26 04/09/2019 5:03 PM [facility] A/G RATIO 1.0 1.0 - 2.0 RATIO 04/09/2019 5:03 PM [facility] EGFR NON-AFR. AMER. >90 >90 ML/MIN/1.7 3 M2 04/09/2019 5:03 PM [facility] EGFR AFR. AMER. >90 >90 ML/MIN/1.7 3 M2 04/09/2019 5:03 PM [facility] Comment: NOTE: eGFR is not calculated for patients <18 years of age. This is an estimated GFR (CKD EPI) and should not be used for calculating drug doses. 04/09/2019 4:14 PM MANAGER RESEARCH Matteo Krishnamurthy PA-C LABORATORY Final Result [facility] [address] [place] [address], [place] [phone] * (ABNORMAL) CBC W/DIFF AUTOMATED (04/09/2019 4:14 PM MANAGER RESEARCH) [facility] WBC 10.8 4.5 - 11.0 x10'3/uL 04/09/2019 4:31 PM [facility] RBC 5.07 4.70 - 6.10 x10'6/uL 04/09/2019 4:31 PM [facility] HGB 14.2 14.0 - 18.0 G/DL 04/09/2019 4:31 PM [facility] HCT 43.6 43.0 - 54.0 % 04/09/2019 4:31 PM [facility] MCV 86.0 80.0 - 94.0 FL 04/09/2019 4:31 PM [facility] MCH 28.0 27.0 - 31.0 PG 04/09/2019 4:31 PM [facility] MCHC 32.6 32.0 - 36.0 G/DL 04/09/2019 4:31 PM [facility] RDW 13.1 11.5 - 14.5 % 04/09/2019 4:31 PM [facility] PLT 302 130 - 400 x10'3/uL 04/09/2019 4:31 PM [facility] MPV 11.1 9.3 - 12.2 FL 04/09/2019 4:31 PM [facility] DIFFERENTIAL TYPE AUTOMATED DIFFERENTIAL 04/09/2019 4:31 PM [facility] NEUTROPHILS % 71.7 % 04/09/2019 4:31 PM [facility] LYMPHOCYTES % 15.2 % 04/09/2019 4:31 PM [facility] MONOCYTES % 8.9 % 04/09/2019 4:31 PM [facility] EOSINOPHILS 3.0 % 04/09/2019 4:31 PM [facility] BASOPHILS 0.6 % 04/09/2019 4:31 PM [facility] IMMATURE GRANS % 0.6 % 04/09/19 20 4:31 PM [facility] ABS. NEUTROPHILS TOTAL 7.74(H) 1.80 - 7.70 x10'3/uL 04/09/2019 4:31 PM [facility] ABS. LYMPHOCYTES 1.64 1.00 - 4.80 x10'3/uL 04/09/2019 4:31 PM [facility] ABS. MONOCYTES 0.96(H) 0.30 - 0.82 x10'3/uL 04/09/2019 4:31 PM [facility] ABS. EOSINOPHILS 0.32 0.04 - 0.54 x10'3/uL 04/09/2019 4:31 PM [facility] ABS. BASOPHILS 0.06 0.01 - 0.08 x10'3/uL 04/09/2019 4:31 PM [facility] ABS. IMMATURE GRANULOCYTES 0.06 0.00 - 0.49 x10'3/uL 04/09/2019 4:31 PM [facility] 04/09/2019 4:14 PM MANAGER RESEARCH Matteo Krishnamurthy PA-C LABORATORY Final Result [facility] [address] [place] [address], * URINALYSIS (04/09/2019 4:13 PM MANAGER RESEARCH) SPECIMEN TYPE URINE CLEAN CATCH 04/09/2019 4:13 PM MANAGER RESEARCH [facility] COLOR (U) YELLOW 04/09/2019 4:32 PM MANAGER RESEARCH [facility] TRANSPARENCY CLOUDY 04/09/2019 4:32 PM [facility] SPECIFIC GRAVITY (U) 1.012 1.001 - 1.030 04/09/2019 4:32 PM MANAGER RESEARCH [facility] U PH 6.0 5.0 - 9.0 04/09/2019 4:32 PM MANAGER RESEARCH [facility] LEUKOCYTES (U) NEGATIVE NEGATIVE 04/09/2019 4:32 PM [facility] NITRITES NEGATIVE NEGATIVE 04/09/2019 4:32 PM [facility] PROTEIN (U) NEGATIVE <30 MG/DL 04/09/2019 4:32 PM [facility] URINE GLUCOSE NEGATIVE NEGATIVE MG/DL 04/09/2019 4:32 PM [facility] KETONES MG/DL (U) NEGATIVE NEGATIVE MG/DL 04/09/2019 4:32 PM [facility] UROBILINOGEN NEGATIVE NEGATIVE MG/DL 04/09/2019 4:32 PM [facility] BILIRUBIN (U) NEGATIVE NEGATIVE MG/DL 04/09/2019 4:32 PM [facility] BLOOD (U) NEGATIVE NEGATIVE 04/09/2019 4:32 PM [facility] CULTURE & SENSITIVITY INDICATED? CULTURE IS NOT INDICATED 04/09/2019 4:32 PM [facility] URINE SPECIMEN OBTAINED BY CLEAN CATCH PROCEDURE / Unknown 04/09/2019 4:13 PM MANAGER RESEARCH us Matteo Krishnamurthy PA-C URINE ORDERABLES Final Result [facility] [address] [place] [address], documented in this encounter Visit Diagnoses Diagnosis Generalized abdominal pain- Primary Abdominal pain, generalized Painful orthopaedic hardware (CMS/HCC)- Primary documented in this encounter Administered Medications Inactive Administered Medications - up to 3 most recent administrations Medication Order MAR Action Action Date Dose Rate Site dicyclomine (BENTYL) tablet 20 mg 20 mg, Oral, Once, 1 dose, On 04/09/19 at 1715 Given 04/09/2019 5:15 PM MANAGER RESEARCH 20 mg sodium chloride 0.9% bolus infusion SOLN 1,000 mL 1,000 mL, Intravenous, Administer over 15 Minutes, Once, 1 dose, On 04/09/19 at 1600 New Bag 04/09/2019 5:09 PM MANAGER RESEARCH 1,000 mLs documented in this encounter Active and Recently Administered Medications Times are shown in MANAGER RESEARCH. Scheduled Medication Order 04/07/2019 04/08/2019 04/09/2019 dicyclomine (BENTYL) injection 20 mg 20 mg, Intramuscular, Once, 1 dose, On 04/09/19 at 1600 1710 (Canceled Entry - Provider: Jadyn Gallagher RN - Comment: po INSTEAD) dicyclomine (BENTYL) tablet 20 mg (COMPLETED) 20 mg, Oral, Once, 1 dose, On 04/09/19 at 1715 1715 (Given - Provid er: Jadyn Gallagher, KAMILA) sodium chloride 0.9% bolus infusion SOLN 1,000 mL (COMPLETED) 1,000 mL, Intravenous, Administer over 15 Minutes, Once, 1 dose, On 04/09/19 at 1600 1709 (New Bag - Prov ider: Jadyn Gallagher RN)[id number] (Infusion Stop Time - Provider: Jadyn Gallagher RN) documented in this encounter Care Teams Telephone Diaphragm Assembler Relationship Specialty Start Date End Date Clara Stanley APNP [address] [place] [address] [phone] PCP - General NURSE PRACTITIONER 06/01/18 Dominick Mccloud MD [id number] [place] [address] [employer] Signals Analyst CARDIOVASCULAR DISEASE 03/28/19 documented as of this encounter
--- OUTSIDE RECORDS SUMMARY | 2024-03-02 03:23 | XMS_ITS | Encounter Summary ---
Author Organization [facility] Address [address] [place] [address]. [place], [place] [address] [place] [address] Care Team Providers Care Corrugator Operator Helper Name Role Phone Clara Stanley Primary Care Provider [phone] Dominick Mccloud MD Unavailable [phone] Encounter Details Date Type Department Care Team (Latest Contact Info) Description 05/24/2019 Scan HEALTH INFO SRVCS Scanned, Documents Social [...] st Contact Info) Description 03/28/2024 7:30 AM CHILD CARE SPECIALIST Hospital Encounter [facility] [place] [address] Antwan Stone DPM [address], [place] [address] 03/28/2024 7:30 AM CHILD CARE SPECIALIST [place]esthesia [place] [address] Shanelle Avila, CLINICAL [place] [address] 03/28/2024 7:30 AM CHILD CARE SPECIALIST - 03/28/2024 8:48 AM CHILD CARE SPECIALIST [place] [address] Antwan Stone, DPÁngel [address], [place] [address] REMOVAL OF HARDWARE LEFT FOOT 04/05/2024 8:30 AM CHILD CARE SPECIALIST Office Visit [facility] THREE [facility], [facility] [address] [place] [address] Dominick Mccloud MD Three [facility]. [facility] [address] [place], [place] [address] Scheduled Procedures Name Priority Associated Diagnoses Date/Ti me REMOVAL PLATE SCREW OR PIN SCHED BY FAX 02/08/24 [facility] PHONE ASSESS 03/28/2024 7:30 AM CHILD CARE SPECIALIST documented as of this encounter Visit Diagnoses Not on filedocumented in this encounter Care Teams Corrugator Operator Helper Relationship Specialty Start Date End Date Clara Stanley APNP [address] [place] [address] PCP - General NURSE PRACTITIONER 06/01/18 Dominick Mccloud MD Three [facility]. [facility] [address] [place], [place] [address] [place] Stamping Operator CARDIOVASCULAR DISEASE 03/28/19 documented as of this encounter
--- OUTSIDE RECORDS SUMMARY | 2024-03-02 03:23 | XMS_ITS | Encounter Summary ---
Author Organization [facility] Address [address] [place] [address]. [place], [place] [address] [place] [address] Care Team Providers Care Workforce Services Representative Name Role Phone Clara Stanley Primary Care Provider [phone] Dominick Mccloud MD Unavailable [phone] Encounter Details Date Type Department Care Team (Latest Contact Info) Description 04/28/2019 Travel Social History Tobacco Use Types Packs/Day [...] st Contact Info) Description 03/28/2024 7:30 AM READERS' ADVISORY SERVICE LIBRARIAN Hospital Encounter [facility] [place] [address] Antwan Stone DPM [address], [place] [address] 03/28/2024 7:30 AM READERS' ADVISORY SERVICE LIBRARIAN [place]esthesia [place] [address] Shanelle Avila, COLLEGE COACH [address] [place] [address] 03/28/2024 7:30 AM READERS' ADVISORY SERVICE LIBRARIAN - 03/28/2024 8:48 AM READERS' ADVISORY SERVICE LIBRARIAN Surgery [facility] [place] [address] Antwan Stone, DPM [address], [place] [address] REMOVAL OF HARDWARE LEFT FOOT 04/05/2024 8:30 AM READERS' ADVISORY SERVICE LIBRARIAN Office Visit [facility] THREE [facility], [facility] [address] [place] [address] Dominick Mccloud MD Three [facility]. [facility] [address] [place] [address] Scheduled Procedures Name Priority Associated Diagnoses Date/Ti me REMOVAL PLATE SCREW OR PIN SCHED BY FAX 02/08/24 [facility] PHONE ASSESS 03/28/2024 7:30 AM READERS' ADVISORY SERVICE LIBRARIAN documented as of this encounter Visit Diagnoses Not on filedocumented in this encounter Care Teams Workforce Services Representative Relationship Specialty Start Date End Date Clara Stanley APNP [address] [place] [address] PCP - General NURSE PRACTITIONER 06/01/18 Dominick Mccloud MD [facility]. [facility] [address] [place] [address] [place] Riverboat Captain CARDIOVASCULAR DISEASE 03/28/19 documented as of this encounter
--- OUTSIDE RECORDS SUMMARY | 2024-03-02 03:23 | XMS_ITS | Encounter Summary ---
Author Organization [facility] Address [address] [place] [address]. [place], [place] [address] [place] [address] Care Team Providers Care Telephonic Rn Name Role Phone Clara Stanley Primary Care Provider [phone] Dominick Mccloud MD Unavailable [phone] Encounter Details Date Type Department Care Team (Latest Contact Info) Description 2019 Scan HEALTH INFO SRVCS Scanned, Documents Social [...] st Contact Info) Description 03/28/2024 7:30 AM VOCATIONAL EVALUATOR Hospital Encounter [facility] [place] [address] Antwan Stone DPM [address], [place] [address] 03/28/2024 7:30 AM VOCATIONAL EVALUATOR Anesthesia [place] [address] Shanelle Avila, MANAGER MEETING [address] [place] [address] 03/28/2024 7:30 AM VOCATIONAL EVALUATOR - 03/28/2024 8:48 AM VOCATIONAL EVALUATOR [place] [address] Antwan Stone, DPÁngel [address] [place] [address] REMOVAL OF HARDWARE LEFT FOOT 04/05/2024 8:30 AM VOCATIONAL EVALUATOR Office Visit [facility] THREE [facility], [facility] [address] [place] [address] Dominick Mccloud MD Three [facility]. [facility] [address] [place], [place] [address] Scheduled Procedures Name Priority Associated Diagnoses Date/Ti me REMOVAL PLATE SCREW OR PIN SCHED BY FAX 02/08/24 [facility] PHONE ASSESS 03/28/2024 7:30 AM VOCATIONAL EVALUATOR documented as of this encounter Visit Diagnoses Not on filedocumented in this encounter Care Teams Telephonic Rn Relationship Specialty Start Date End Date Clara Stanley APNP [address] [place] [address] PCP - General NURSE PRACTITIONER 06/01/18 Dominick Mccloud MD Three [facility]. [facility] [address] [place], [place] [address] [place] Director Of Community Services CARDIOVASCULAR DISEASE 03/28/19 documented as of this encounter
--- OUTSIDE RECORDS SUMMARY | 2024-03-02 03:23 | XMS_ITS | Encounter Summary ---
Author Organization [facility] Address [address] [place] [address]. [place], [place] [address] [place] [address] Care Team Providers Care Residential Specialist Name Role Phone Clara Stanley Primary Care Provider [phone] Dominick Mccloud MD Unavailable [phone] Reason for Visit * Auth/Cert Specialty Diagnoses / Procedures Referred By Contac t Referred To Contact Diagnoses ABDOMINAL LEFT UPPER QUADRANT ABDOMINAL PAIN ANOREXIA CONSTIPATION WEIGHT LOSS Procedures EGD Referral ID Status Reason Start Date Expiration Date Visits Re quested Visits Authorized [id number] 1 1 Encounter Details Date Type Department Care Team (Latest Contact Info) Description 04/28/2019 6:28 AM VP RESEARCH - 04/28/2019 8:47 AM [facility] Hospital Encounter [facility] [place] [address] Du Goff MD [address] [address] Discharge Disposition: Home or Self Care (Routine [...] Sign Reading Time Taken Comments Blood Pressure 127/72 04/28/2019 8:15 AM VP RESEARCH Pulse 63 04/28/2019 8:15 AM VP RESEARCH Temperature 36.7 ??C (98.1 ??F) 04/28/2019 8:03 AM CS T Respiratory Rate 30 04/28/2019 8:15 AM VP RESEARCH Oxygen Saturation 97% 04/28/2019 8:15 AM VP RESEARCH Inhaled Oxygen Concentration - - Weight 158.8 kg (350 lb) 04/21/2019 3:25 PM VP RESEARCH Height 190.5 cm (6' 3 ) 04/21/2019 3:25 PM VP RESEARCH Body Mass Index 43.75 04/21/2019 3:25 PM VP RESEARCH documented in this encounter Discharge Instructions * Discharge Instructions* Du Goff MD - 04/28/2019 8:01 AM VP RESEARCH Normal EGD RESEARCH * Attachments The following attachments cannot be sent through Care Everywhere. * Upper GI Endoscopy Discharge Instructions (Australian) documented in this encounter Medications at Time [...] as of this encounter H&P Notes * Du Goff MD - 04/28/2019 7:46 AM CST Du Goff MD, FACG, FACP Attending Provider: Du Goff MD PCP: ZEB Nunn PATIENT: Kwaku Kulkarni : 1965 Date of Visit: 04/28/2019 HPI: [...] file Gets together: Not on file Attends buddhism service: Not on file Active member of [...] exhibits no edema. Assessment & Plan: EGD DU GOFF MD 04/28/2019 RESEARCH documented in this encounter OR Notes * Op Note - Du Goff MD - 04/28/2019 7:50 AM CST DU GOFF MD, FACG, FACP UPPER ENDOSCOPY INDICATION: LUQ/epigastric pain, anorexia, weight loss. POST-OP: Normal. SEDATION: Per anesthesia With the patient in the left lateral decubitus position, the Olympus GIF [id number] upper endoscope wasused to easily intubate the [...] follow-up with my office in one month. Du Goff M.D. RESEARCH documented in this encounter Plan of Treatment Upcoming Encounters Date Type Department Care Team (Late st Contact Info) Description 03/28/2024 7:30 AM VP RESEARCH Hospital Encounter [facility] [address] Antwan Stone DPM [address], [place] [address] 03/28/2024 7:30 AM VP RESEARCH Anesthesia Event [place], [place] [address] Shanelle Avila, CONSUMER STUDIES PROFESSOR [address] [place] [address] 03/28/2024 7:30 AM VP RESEARCH - 03/28/2024 8:48 AM VP RESEARCH Surgery [facility] OR [address] [facility] [place] [address] Antwan Stone DPM [address] [place] [address] REMOVAL OF HARDWARE LEFT FOOT 04/05/2024 8:30 AM VP RESEARCH Office Visit [facility] THREE [facility], [facility] [address] [place] [address] Dominick Mccloud MD Three [facility]. [facility] [address] [place] [address] Scheduled Procedures Name Priority Associated Diagnoses Date/Ti me REMOVAL PLATE SCREW OR PIN SCHED BY FAX 02/08/24 [facility] PHONE ASSESS 03/28/2024 7:30 AM VP RESEARCH documented as of this encounter Procedures Procedure Name Priority Date/Time Associated Diagnosis Comments EGD 04/28/2019 7:32 AM VP RESEARCH ABDOMINAL LEFT UPPER QUADRANT ABDOMINAL PAIN ANOREXIA CONSTIPATION WEIGHT LOSS Case Notes SCHEDULED BY FAX 04/15/19 LB EGD Routine 04/28/2019 6:49 AM VP RESEARCH documented in this encounter Visit Diagnoses Not [...] Recently Administered Medications Times are shown in VP RESEARCH. Continuous Medication Order 04/26/2019 04/27/2019 04/28/2019 lactated ringers infusion at 10 mL/hr, Intravenous, Continuous, Starting on Priscila 04/28/19 at 0730, Until Priscila 04/28/19 at 1047, Infuse at TKO rate, Pre-Op 0730 (Canceled Entry - Provider: Automatic Discharge Provider - Comment: Automatically canceled at discontinue of medication order) documented in this encounter Care Teams Residential Specialist Relationship Specialty Start Date End Date Clara Stanley APNP [address] [place] [address] PCP - General NURSE PRACTITIONER 06/01/18 Dominick Mccloud MD [facility] [address] [place] [address] [place] Film Process Operator CARDIOVASCULAR DISEASE 03/28/19 documented as of this encounter
--- OUTSIDE RECORDS SUMMARY | 2024-03-02 03:23 | XMS_ITS | Encounter Summary ---
Author Organization [facility] Address [address] [place] [address]. [address] [address] Care Team Providers Care Chief Of Production Name Role Phone Clara Stanley Primary Care Provider [phone] Dominick Mccloud MD Unavailable [phone] Reason for Referral * Surgical (Urgent) - Closed Specialty Diagnoses / Procedures Referred By Contac t Referred To Contact SURGERY Diagnoses Left upper quadrant pain Yakov Bello MD [address] [place] [address] Phone: tel: fax: [facility] [place] [address] Phone: tel: fax: Referral ID Status Reason Start Date Expiration Date Visits Re quested Visits Authorized [id number] Closed 04/07/2019 05/07/2020 99 99 LY CHAIN ANALYST * Imaging (Urgent) - Closed Specialty Diagnoses / Procedures Referred By Contac t Referred To Contact RADIOLOGY Diagnoses Left upper quadrant pain Procedures US ABD COMPLETE Yakov Bello MD [address] [place] [address] Phone: tel: fax: Referral ID Status Reason Start Date Expiration Date Visits Re quested Visits Authorized [id number] Closed 04/07/2019 05/08/2020 1 1 LY CHAIN ANALYST Reason for Visit * Reason Comments Abdominal Pain left upper quadrant, consistant burning sensaton Patient was recently at hospital for back pain, he was given hydrocodone and took about 2-3 tablets and started feeling constipated Paraesthesia numbness across abdo srinivasa Encounter Details Date Type Department Care Team (Late st Contact Info) Description 04/07/2019 3:20 PM SUPPLY CHAIN ANALYST Office Visit [facility] Family & Internal Medicine [facility] [address] [place] [phone] Yakov Bello MD [address] [place], [place] [id number] Abdominal Pain (left upper quadrant, consistant burning sensaton Patient was recently at hospital for back pain, he was given hydrocodone and took about 2-3 tablets and started feeling constipated); Paraesthesia (numbness across abdominal) Social History Tobacco Use Types Packs/Day Years [...] Sign Reading Time Taken Comments Blood Pressure 122/68 04/07/2019 3:28 PM SUPPLY CHAIN ANALYST Pulse 73 04/07/2019 3:28 PM SUPPLY CHAIN ANALYST Temperature - - Respiratory Rate 16 04/07/2019 3:28 PM SUPPLY CHAIN ANALYST Oxygen Saturation 97% 04/07/2019 3:28 PM SUPPLY CHAIN ANALYST Inhaled Oxygen Concentration - - Weight 161.5 kg (356 lb) 04/07/2019 3:28 PM SUPPLY CHAIN ANALYST Height 190.5 cm (6' 3 ) 04/07/2019 3:28 PM SUPPLY CHAIN ANALYST Body Mass Index 44.5 04/07/2019 3:28 PM SUPPLY CHAIN ANALYST documented in this encounter Progress Notes * Yakov Bello MD - 04/07/2019 3:20 PM CST Images from the original note were not included. Office Progress Note Reason for Visit: Abdominal Pain (left upper quadrant, consistant burning sensaton Patient was recently at hospital for back pain, he was given hydrocodone and took about 2-3 tablets and started feeling constipated) and Paraesthesia (numbness across abdominal) History of Present Illness: He is here today for follow-up on abdominal pain. He has been seen multiple times for this problem both in our office and at the hospital. He was initially seen in the hospital for back and flank pain which he was given any narcotic pain medication for him. He did take this 1 time and had significant constipation from this and did not want to continue taking this. He states that the pain feels like a constant burning sensation in his left upper quadrant that radiates down to his left lower quadrant. He has had normal bowel movements and this does not resolve the pain. He denies fever or chills. He denies vomiting but does feel nauseated at times. States that he does not have much of an appet ite. He also states that he feels like there is a numbness feeling across his entire abdomen when his pain flares up. He states that the pain does become significant and he is frequently considered going to the emergency room however his work-up has been negative thus far. He is also had x-rays done of his thoracic and lumbar spine for this as a cause of his pain. He is not taking [id number] medications for his pain at this time as they have not helped in the past. ROS: Review of Systems Constitutional: Positive for malaise/fatigue. Negative for weight loss. HENT: Negative for congestion, ear pain, hearing loss and tinnitus. Eyes: Negative for blurred vision. Respiratory: Negative for cough, shortness of breath and wheezing. Cardiovascular: Negative for chest pain, palpitations, claudication, leg swelling and PND. Gastrointestinal: Positive for abdominal pain, constipation and nausea. Negative for blood in stool, diarrhea, heartburn, melena and vomiting. Genitourinary: Negative for dysuria, flank pain and frequency. Musculoskeletal: Negative for back pain, joint pain and myalgias. Skin: Negative for itching and rash. Neurological: Negative for weakness and headaches. Psychiatric/Behavioral: Negative for depression. The patient does not have insomnia. Medications: Current Outpatient Medications on File Prior to Visit Medication Sig ??? acetaZOLAMIDE ER 500 MG 12 hr capsule Take 500 mg by mouth 2 (two) times daily. ??? amlodipine 10 MG tablet Take 1 tablet (10 mg total) by mouth daily. (Patient taking differently: Take 10 mg by mouth nightly at bedtime. ) ??? cetirizine (ZYRTEC ALLERGY) 10 MG tablet Take 10 mg by mouth nightly at bedtime. ??? cyclobenzaprine 10 MG tablet Take 1 tablet (10 mg total) by mouth 3 (three) times daily as needed for Muscle Spasms. ??? ondansetron 4 MG disintegrating tablet Take 1 tablet (4 mg total) by mouth every 8 (eight) hours as needed for Nausea. ??? pravastatin 20 MG tablet Take 1 tablet (20 mg total) by mouth nightly at bedtime. ??? ranitidine 150 MG capsule Take 1 capsule (150 mg total) by mouth 2 (two) times daily. ??? zolpidem (AMBIEN) 10 MG tablet Take 1 tablet (10 mg total) by mouth nightly as needed for Sleep. No current facility-administered medications on file prior to visit. Allergies: No Known Allergies Medical History: Past [...] file Gets together: Not on file Attends sikhism service: Not on file Active member of [...] time. He appears well- developed and well-nourished. Cardiovascular: Normal rate, regular rhythm and normal heart sounds. Pulmonary/Chest: Effort normal and breath sounds normal. Abdominal: Soft. Normal appearance and bowel sounds are normal. He exhibits no shifting dullness, no pulsatile liver, no abdominal bruit, no pulsatile midline mass and no mass. There is no hepatosplenomegaly. There is tenderness in the left upper quadrant and left lower quadrant. There is no rigidity, no rebound, no guarding, no CVA tenderness, no tenderness at McBurney's point and negative Roca's sign. No hernia. Neurological: He is alert and oriented to person, place, and time. No sensory deficit. Coordinationand gait normal. Reflex Scores: Patellar reflexes are 2+ on the right side and 2+ on the left side. Achilles reflexes are 2+ on the right side. Psychiatric: He has a normal mood and affect. Judgment normal. Filed Vitals: 04/07/19 1528 BP: 122/68 Pulse: 73 Resp: 16 SpO2: 97% Weight: (!) 161.5 kg (356 lb) Height: 6' 3 (1.905 m) Diagnoses/Impression: 1. Left upper quadrant pain CBC W/DIFF AUTOMATED AMYLASE LIPASE C-REACTIVE PROTEIN COMPREHENSIVE METABOLIC PANEL US ABD COMPLETE AMB REFERRAL TO GENERAL SURGERY Recommendations and Plan: 1. Left upper quadrant pain Uncertain etiology of his pain at this time. CT scan was normal as were x-rays of his lumbar and thoracic spine. Lab work all was essentially normal and no abnormalities on his urinalysis. Patient isdefinitely in pain and question whether this could be from a thoracic radiculopathy. I did consult with Dr. Gallardo who examined the patient and it was decided to proceed with an abdominal ultrasound to ensure there is been no changes to his abdomen and low exposure to radiation. We also discussed the possibility of a surgical referral for further evaluation of his abdominal pain to ensure that this was not a surgical abdomen which I do not believe it is at this time. - CBC W/DIFF AUTOMATED; Future - AMYLASE; Future - LIPASE; Future - C-REACTIVE PROTEIN; Future - COMPREHENSIVE METABOLIC PANEL; Future - US ABD COMPLETE; Future - AMB REFERRAL TO GENERAL SURGERY Time Spent: Approximately 30 minutes was spent in direct patient consultation and the majority of that time (>50%) was spent on counseling and coordination of care. Orders Placed This Encounter ??? CBC W/DIFF AUTOMATED ??? AMYLASE ??? LIPASE ??? C-REACTIVE PROTEIN ??? COMPREHENSIVE METABOLIC PANEL ??? Ambulatory referral to General Surgery (OTHER) ??? US ABD COMPLETE Cannot display discharge medications since this is not an admission. PCP: YAKOV BELLO MD 04/11/2019 LY CHAIN ANALYST documented in this encounter Plan of Treatment Upcoming Encounters Date Type Department Care Team (Late st Contact Info) Description 03/28/2024 7:30 AM SUPPLY CHAIN ANALYST Hospital Encounter [facility] [place] [address] Antwan Stone, DPM [address], [place] [address] 03/28/2024 7:30 AM SUPPLY CHAIN ANALYST Anesthesia [place] [address] Shanelle Avila, RAEANN [address] [place] [address] 03/28/2024 7:30 AM SUPPLY CHAIN ANALYST - 03/28/2024 8:48 AM SUPPLY CHAIN ANALYST Surgery [place] [address] Antwan Stone, DIEGO [address], [place] [address] REMOVAL OF HARDWARE LEFT FOOT 04/05/2024 8:30 AM SUPPLY CHAIN ANALYST Office Visit [facility] THREE [facility] [address] [place] [address] Dominick Mccloud MD Three [facility]. [facility] [address] [place] [address] Scheduled Procedures Name Priority Associated Diagnoses Date/Ti me REMOVAL PLATE SCREW OR PIN SCHED BY FAX 02/08/24 JUANITOS PHONE ASSESS 03/28/2024 7:30 AM SUPPLY CHAIN ANALYST Scheduled Referrals Name Type Priority Associated Diagnoses Orde r Schedule Ambulatory referral to General Surgery (OTHER) Referral Routine Left upper quadrant pain Ordered: 04/07/2019 documented as of this encounter Results * US ABD COMPLETE (04/09/2019 2:40 PM SUPPLY CHAIN ANALYST) Anatomical Region Laterality Modality Abdomen Ultrasound 04/09/2019 5:00 PM SUPPLY CHAIN ANALYST Impressions 04/09/2019 5:03 PM SUPPLY CHAIN ANALYST IMPRESSION: No acute abnormality identified. Interpreted By: Gordon Tolentino MD, 04/09/2019 5:00 PM Narrative 04/09/2019 5:03 PM SUPPLY CHAIN ANALYST EXAMINATION: US ABD COMPLETE HISTORY: Upper quadrant [...] PM Yakov Bello MD ULTRASOUND Final Result * (ABNORMAL) COMPREHENSIVE METABOLIC PANEL (04/08/2019 11:51 AM [facility]) [facility] [address] GLUCOSE 90 70 - 99 MG/DL 04/08/2019 8:38 PM [facility] BUN 12 7 - 18 MG/DL 04/08/2019 8:38 PM [facility] CREATININE S/P/B 0.82 0.7 - 1.3 MG/DL 04/08/2019 8:38 PM [facility] SODIUM S/P/B 134(L) 136 - 145 MMOL/L 04/08/2019 8:38 PM [facility] POTASSIUM S/P/B 4.1 3.5 - 5.1 MMOL/L 04/08/2019 8:38 PM [facility] CHLORIDE S/P/B 105 100 - 108 MMOL/L 04/08/2019 8:38 PM [facility] CO2 21.4 21 - 32 MMOL/L 04/08/2019 8:38 PM [facility] CALCIUM S/P/B 9.5 8.5 - 10.1 MG/DL 04/08/2019 8:38 PM [facility] BILIRUBIN TOTAL S/P/B 0.3 0.2 - 1.2 MG/DL 04/08/2019 8:38 PM [facility] TOTAL PROTEIN S/P/B 7.6 6.4 - 8.2 G/DL 04/08/2019 8:38 PM [facility] ALBUMIN S/P/B 4.0 3.4 - 5.0 G/DL 04/08/2019 8:38 PM [facility] AST 20 15 - 37 U/L 04/08/2019 8:38 PM [facility] ALT 31 16 - 60 U/L 04/08/2019 8:38 PM [facility] ALKALINE PHOSPHATASE S/P/B 79 50 - 136 U/L 04/08/2019 8:38 PM SUPPLY CHAIN ANALYST [facility] ANION GAP 7.6 5 - 15 MMOL/L 04/08/2019 8:38 PM [facility] BUN CREATININE RATIO 14.6 6 - 26 04/08/2019 8:38 PM [facility] A/G RATIO 1.1 1.0 - 2.0 RATIO 04/08/2019 8:38 PM [facility] EGFR NON-AFR. AMER. >90 >90 ML/MIN/1.7 3 M2 04/08/2019 8:38 PM [facility] EGFR AFR. AMER. >90 >90 ML/MIN/1.7 3 M2 04/08/2019 8:38 PM [facility] Comment: NOTE: eGFR is not calculated for patients <18 years of age. This is an estimated GFR (CKD EPI) and should not be used for calculating drug doses. 04/08/2019 11:5 1 AM SUPPLY CHAIN ANALYST us Yakov Bello MD LABORATORY Final Result [facility] [address] [place], [place] [address], [place] [phone] * (ABNORMAL) C-REACTIVE PROTEIN (04/08/2019 11:51 AM SUPPLY CHAIN ANALYST) C-REACTIVE PROTEIN 0.31(H) <0.29 mg/dL 04/08/2019 8:38 PM SUPPLY CHAIN ANALYST [facility] 04/08/2019 11:5 1 AM SUPPLY CHAIN ANALYST us Yakov Bello MD LABORATORY Final Result [facility] [address] [place] [address], [place] [phone] * LIPASE (04/08/2019 11:51 AM SUPPLY CHAIN ANALYST) LIPASE 120 73 - 393 UNITS/L 04/08/2019 8:38 PM SUPPLY CHAIN ANALYST [facility] 04/08/2019 11:5 1 AM SUPPLY CHAIN ANALYST us Yakov Bello MD LABORATORY Final Result [facility] [address] [place] [address], [place] [phone] * AMYLASE (04/08/2019 11:51 AM SUPPLY CHAIN ANALYST) AMYLASE S/P/B 28 25 - 115 UNITS/L 04/08/2019 8:38 PM SUPPLY CHAIN ANALYST [facility] 04/08/2019 11:5 1 AM SUPPLY CHAIN ANALYST us Yakov Bello MD LABORATORY Final Result [facility] [address] [place] [address], [place] [phone] * (ABNORMAL) CBC W/DIFF AUTOMATED (04/08/2019 11:51 AM SUPPLY CHAIN ANALYST) WBC 10.2 4.5 - 11.0 x10'3/uL 04/08/2019 8:22 PM SUPPLY CHAIN ANALYST [facility] RBC 5.05 4.70 - 6.10 x10'6/uL 04/08/2019 8:22 PM SUPPLY CHAIN ANALYST [facility] HGB 14.1 14.0 - 18.0 G/DL 04/08/2019 8:22 PM SUPPLY CHAIN ANALYST [facility] HCT 43.5 43.0 - 54.0 % 04/08/2019 8:22 PM [facility] MCV 86.1 80.0 - 94.0 FL 04/08/2019 8:22 PM [facility] MCH 27.9 27.0 - 31.0 PG 04/08/2019 8:22 PM [facility] MCHC 32.4 32.0 - 36.0 G/DL 04/08/2019 8:22 PM [facility] RDW 13.2 11.5 - 14.5 % 04/08/2019 8:22 PM [facility] PLT 298 130 - 400 x10'3/uL 04/08/2019 8:22 PM [facility] MPV 11.8 9.3 - 12.2 FL 04/08/2019 8:22 PM [facility] DIFFERENTIAL TYPE AUTOMATED DIFFERENTIAL 04/08/2019 8:22 PM [facility] NEUTROPHILS % 72.9 % 04/08/2019 8:22 PM [facility] LYMPHOCYTES % 14.8 % 04/08/2019 8:22 PM [facility] MONOCYTES % 9.0 % 04/08/2019 8:22 PM [facility] EOSINOPHILS 2.4 % 04/08/2019 8:22 PM [facility] BASOPHILS 0.5 % 04/08/2019 8:22 PM [facility] IMMATURE GRANS % 0.4 % 04/08/19 20 8:22 PM [facility] ABS. NEUTROPHILS TOTAL 7.41 1.80 - 7.70 x10'3/uL 04/08/2019 8:22 PM [facility] ABS. LYMPHOCYTES 1.50 1.00 - 4.80 x10'3/uL 04/08/2019 8:22 PM SUPPLY CHAIN ANALYST [facility] ABS. MONOCYTES 0.91(H) 0.30 - 0.82 x10'3/uL 04/08/2019 8:22 PM SUPPLY CHAIN ANALYST [facility] ABS. EOSINOPHILS 0.24 0.04 - 0.54 x10'3/uL 04/08/2019 8:22 PM SUPPLY CHAIN ANALYST [facility] ABS. BASOPHILS 0.05 0.01 - 0.08 x10'3/uL 04/08/2019 8:22 PM SUPPLY CHAIN ANALYST [facility] ABS. IMMATURE GRANULOCYTES 0.04 0.00 - 0.49 x10'3/uL 04/08/2019 8:22 PM [facility] 04/08/2019 11:5 1 AM SUPPLY CHAIN ANALYST Yakov Bello MD LABORATORY Final Result [facility] [address] [place] [address], documented in this encounter Visit Diagnoses Diagnosis Left upper quadrant pain- Primary Abdominal pain, left upper quadrant Left upper quadrant pain Abdominal pain, left upper quadrant Painful orthopaedic hardware (CMS/HCC)- Primary documented in this encounter Care Teams Chief Of Production Relationship Specialty Start Date End Date Clara Stanley APNP [address] [place] [address] PCP - General NURSE PRACTITIONER 06/01/18 Dominick Mccloud MD Three [facility] [address] [place] [address] [place] Mail Carrier CARDIOVASCULAR DISEASE 03/28/19 documented as of this encounter
--- OUTSIDE RECORDS SUMMARY | 2024-03-02 03:23 | XMS_ITS | Encounter Summary ---
Author Organization [facility] Address [address] [place] [address]. [place], [place] [address] [place] [address] Care Team Providers Care Autos Disassembler Name Role Phone Clara Stanley Primary Care Provider [phone] Dominick Mccloud MD Unavailable [phone] Encounter Details Date Type Department Care Team (Latest Contact Info) Description 05/11/2019 Scan HEALTH INFO SRVCS Scanned, Documents Social [...] st Contact Info) Description 03/28/2024 7:30 AM OPERATOR ELECTRONIC WARFARE Hospital Encounter [facility] [place] [address] Antwan Stone DPM [address], [place] [address] 03/28/2024 7:30 AM OPERATOR ELECTRONIC WARFARE Anesthesia Event [place] [address] Shanelle Avila, HARD ROCK DRILL OPERATOR [address] [place] [address] 03/28/2024 7:30 AM OPERATOR ELECTRONIC WARFARE - 03/28/2024 8:48 AM OPERATOR ELECTRONIC WARFARE Surgery [place] [address] Antwan Stone, DPÁngel [address] [place] [address] REMOVAL OF HARDWARE LEFT FOOT 04/05/2024 8:30 AM OPERATOR ELECTRONIC WARFARE Office Visit [facility] THREE [facility], [facility] [address] [place] [address] Dominick Mccloud MD Three [facility]. [facility] [address] [place], [place] [address] Scheduled Procedures Name Priority Associated Diagnoses Date/Ti me REMOVAL PLATE SCREW OR PIN SCHED BY FAX 02/08/24 [facility] PHONE ASSESS 03/28/2024 7:30 AM OPERATOR ELECTRONIC WARFARE documented as of this encounter Visit Diagnoses Not on filedocumented in this encounter Care Teams Autos Disassembler Relationship Specialty Start Date End Date Clara Stanley APNP [address] [place] [address] PCP - General NURSE PRACTITIONER 06/01/18 Dominick Mccloud MD Three [facility]. [facility] [address] [place], [place] [address] [place] [employer] Network Architect CARDIOVASCULAR DISEASE 03/28/19 documented as of this encounter
--- OUTSIDE RECORDS SUMMARY | 2024-03-02 03:23 | XMS_ITS | Encounter Summary ---
Author Organization [facility] Address [address] [place] [address]. [place], [place] [address] [place] [address] Care Team Providers Care Furniture Reproducer Name Role Phone Clara Stanley Primary Care Provider [phone] Dominick Mccloud MD Unavailable [phone] Encounter Details Date Type Department Care Team (Latest Contact Info) Description 05/19/2019 Scan HEALTH INFO SRVCS Scanned, Documents Social [...] st Contact Info) Description 03/28/2024 7:30 AM TYPE SOLDERING MACHINE TENDER Hospital Encounter [facility] [place] [address] Antwan Stone DPM [address], [place] [address] 03/28/2024 7:30 AM TYPE SOLDERING MACHINE TENDER Anesthesia Event [place] [place] [address] Shanelle Avila, AGING ROOM OPERATOR [address] [place] [address] 03/28/2024 7:30 AM TYPE SOLDERING MACHINE TENDER - 03/28/2024 8:48 AM TYPE SOLDERING MACHINE TENDER Surgery [facility] [place] [address] Antwan Stone, DPÁngel [address] [place] [address] REMOVAL OF HARDWARE LEFT FOOT 04/05/2024 8:30 AM TYPE SOLDERING MACHINE TENDER Office Visit [facility] THREE [facility], [facility] [address] [place] [address] Dominick Mccloud MD Three [facility]. [facility] [address] [place], [place] [address] Scheduled Procedures Name Priority Associated Diagnoses Date/Ti me REMOVAL PLATE SCREW OR PIN SCHED BY FAX 02/08/24 [facility] PHONE ASSESS 03/28/2024 7:30 AM TYPE SOLDERING MACHINE TENDER documented as of this encounter Visit Diagnoses Not on filedocumented in this encounter Care Teams Furniture Reproducer Relationship Specialty Start Date End Date Clara Stanley APNP [address] [place] [address] PCP - General NURSE PRACTITIONER 06/01/18 Dominick Mccloud MD Three [facility]. [facility] [address] [place], [place] [address] [employer] [employer] Account Executive CARDIOVASCULAR DISEASE 03/28/19 documented as of this encounter
--- OUTSIDE RECORDS SUMMARY | 2024-03-02 03:23 | XMS_ITS | Encounter Summary ---
Author Organization [facility] Address [address] [place] [address]. [place], [place] [address] [place] [address] Care Team Providers Care Lag Screwer Name Role Phone Clara Stanley Primary Care Provider [phone] Dominick Mccloud MD Unavailable [phone] Encounter Details Date Type Department Care Team (Latest Contact Info) Description 05/06/2019 Scan HEALTH INFO SRVCS Scanned, Documents Social [...] st Contact Info) Description 03/28/2024 7:30 AM HEAD NECK SURGEON Hospital Encounter [facility] [place] [address] Antwan Stone DPM [address], [place] [address] 03/28/2024 7:30 AM HEAD NECK SURGEON Anesthesia [place] [address] Shanelle Avila, BOWLING ALLEY REFINISHER [address] [place] [address] 03/28/2024 7:30 AM HEAD NECK SURGEON - 03/28/2024 8:48 AM HEAD NECK SURGEON Surgery [place] [address] Antwan Stone, DPÁngel [address] [place] [address] REMOVAL OF HARDWARE LEFT FOOT 04/05/2024 8:30 AM HEAD NECK SURGEON Office Visit [facility] THREE [facility], [email or web address] [address] [place] [address] Dominick Mccloud MD Three [facility] [[email or web address]] [address] [place], [place] [phone] Scheduled Procedures Name Priority Associated Diagnoses Date/Ti me REMOVAL PLATE SCREW OR PIN SCHED BY FAX 02/08/24 [facility] PHONE ASSESS 03/28/2024 7:30 AM HEAD NECK SURGEON documented as of this encounter Visit Diagnoses Not on filedocumented in this encounter Care Teams Lag Screwer Relationship Specialty Start Date End Date Clara Stanley APNP [address] [place] [address] PCP - General NURSE PRACTITIONER 06/01/18 Dominick Mccloud MD Three [facility]. [facility] [[email or web address]] [address] [place], [place] [address] [place] Manager Cardiovascular CARDIOVASCULAR DISEASE 03/28/19 documented as of this encounter
--- OUTSIDE RECORDS SUMMARY | 2024-03-02 03:23 | XMS_ITS | Encounter Summary ---
Author Organization [facility] Address [address] [place] [address]. [place], [place] [id number] [place] [address] Care Team Providers Care Principal Strategist Name Role Phone Clara Stanley Primary Care Provider [phone] Dominick Mccloud MD Unavailable Encounter Details Date Type Department Care Team (Latest Contact Info) Description 04/11/2019 Scan HEALTH INFO SRVCS Scanned, Documents Social [...] st Contact Info) Description 03/28/2024 7:30 AM WAX PATTERN REPAIRER Hospital Encounter [facility] [place] [address] Antwan Stone DPM [address], [place] [address] 03/28/2024 7:30 AM WAX PATTERN REPAIRER Anesthesia [place] [address] Shanelle Avila, BOILER SERVICE TECHNICIAN [address] [place] [address] 03/28/2024 7:30 AM WAX PATTERN REPAIRER - 03/28/2024 8:48 AM WAX PATTERN REPAIRER Surgery [place] [address] Antwan Stone, DPÁngel [address], [place] [address] REMOVAL OF HARDWARE LEFT FOOT 04/05/2024 8:30 AM WAX PATTERN REPAIRER Office Visit [facility] THREE [facility], [facility] [address] [place] [address] Dominick Mccloud MD Three [facility]. [facility] [address] [place], [place] [id number] Scheduled Procedures Name Priority Associated Diagnoses Date/Ti me REMOVAL PLATE SCREW OR PIN SCHED BY FAX 02/08/24 [facility] PHONE ASSESS 03/28/2024 7:30 AM WAX PATTERN REPAIRER documented as of this encounter Visit Diagnoses Not on filedocumented in this encounter Care Teams Principal Strategist Relationship Specialty Start Date End Date Clara Stanley APNP [address] [place] [address] PCP - General NURSE PRACTITIONER 06/01/18 Dominick Mccloud MD Three [facility]. [facility] [address] [place], [place] [address] Girard Boarding Room Fixer CARDIOVASCULAR DISEASE 03/28/19 documented as of this encounter
--- OUTSIDE RECORDS SUMMARY | 2024-03-02 03:23 | XMS_ITS | Encounter Summary ---
Author Organization [facility] Address [address] [place] [address]. [place], [place] [address] [place] [address] Care Team Providers Care Rib Puller Name Role Phone Clara Stanley Primary Care Provider [phone] Dominick Mccloud MD Unavailable [phone] Encounter Details Date Type Department Care Team (Late st Contact Info) Description 04/27/2019 12:10 PM CAGE CASHIER - 04/27/2019 11:59 PM RUST Hospital Encounter [facility] Laboratory [address] [place], [place] [address] Dominick Mccloud MD Three [facility]. [facility] [address] [place] [address] Discharge Disposition: Home or Self Care (Routine [...] Take 40 mg by mouth daily. 09/26/19 ondansetron 4 MG disintegrating tablet Take 1 [...] Description 03/28/2024 7:30 AM RUST Hospital Encounter [facility] [place] [address] Antwan Stone, DIEGO [address] [place] [address] 03/28/2024 7:30 AM CAGE CASHIER Anesthesia Event [place] [address] Shanelle Avila, SCRAP BURNER [address] [place] [address] 03/28/2024 7:30 AM CAGE CASHIER - 03/28/2024 8:48 AM CAGE CASHIER Surgery [place] [address] Antwan Stone, DPM [address] [place] [address] REMOVAL OF HARDWARE LEFT FOOT 04/05/2024 8:30 AM CAGE CASHIER Office Visit [facility]hari-O'[facility] lonnie THREE [facility], [facility] [address] [place] [address] Dominick Mccloud MD Three [facility]. [facility] [address] [place] [address] Scheduled Procedures Name Priority Associated Diagnoses Date/Ti me REMOVAL PLATE SCREW OR PIN SCHED BY FAX 02/08/24 [facility] PHONE ASSESS 03/28/2024 7:30 AM CAGE CASHIER documented as of this encounter Procedures Procedure Name Priority Date/Time Associated Diagnosis Comments LIPID PANEL Routine 04/27/2019 12:50 PM CAGE CASHIER Mixed hyperlipidemia documented in this encounter Results * (ABNORMAL) LIPID PANEL (04/27/2019 12:50 PM CAGE CASHIER) CHOLESTEROL 167 <200 MG/DL 04/27/2019 1:32 PM CAGE CASHIER [facility] TRIGLYCERIDES 181(H) <150 MG/DL 04/27/2019 1:32 PM CAGE CASHIER [facility] HDL 36(L) >40.0 MG/DL 04/27/2019 1:32 PM [facility] LDL (CALCULATED) 95 <100 MG/DL 04/27/2019 1:32 PM [facility] NON HDL CHOLESTEROL 131(H) <130 MG/DL 04/27/2019 1:32 PM [facility] CHOL/HDL RATIO 4.6(H) 0.0 - 4.5 04/27/2019 1:32 PM [facility] VLDL CALCULATION 36 5 - 55 MG/DL 04/27/2019 1:32 PM [facility] LIPID INTERPRETATION 04/27/2019 1:32 PM [facility] Comment: [facility] REPORT RECOMMENDATIONS: ?ADULT ?CHILD ??LOW [...] ? >=160 ?>=130 04/27/2019 12:5 0 PM CAGE CASHIER us Dominick Mccloud MD LABORATORY Final Result [facility] [address] [place] [address], documented in this encounter Visit Diagnoses Diagnosis Mixed hyperlipidemia Painful orthopaedic hardware (CMS/HCC)- Primary documented in this encounter Care Teams Rib Puller Relationship Specialty Start Date End Date Clara Stanley APNP [address] [place] [address] PCP - General NURSE PRACTITIONER 06/01/18 Dominick Mccloud MD Three [facility]. [facility] [address] [place] [address] Shelby Research Worker Kitchen CARDIOVASCULAR DISEASE 03/28/19 documented as of this encounter
--- OUTSIDE RECORDS SUMMARY | 2024-03-02 03:24 | XMS_ITS | Encounter Summary ---
Author Organization [facility] Address [address] [place] [address]. [place], [place] [id number] [place] [address] Care Team Providers Care Tool Grinder Operator Name Role Phone Clara Stanley Primary Care Provider [phone] Reason for Visit * Reason Onset Date Comments Appointment Request 07/09/2018 Encounter Details Date Type Department Care Team (Late st Contact Info) Description 07/09/2018 Telephone [facility] Multispecialty Care - [facility] 3 [facility] [address] [place] [id number] Hector Delgado MD 3 [facility] [address] [place] [address] Appointment Request Social History Tobacco Use Types [...] as of this encounter Progress Notes * Kely Jean RN - 07/12/2018 12:12 PM CDT Faxed. * Ayala Mittal - 07/09/2018 2:57 PM CDT Fax records to Dr. Hernandez ( Urologist) for this patient to be seen. The appointment is 07/13/18. Faxnumber [phone]. documented in this encounter Plan of Treatment Upcoming Encounters Date Type Department Care Team (Late st Contact Info) Description 03/28/2024 7:30 AM CHAMBER WORKER Hospital Encounter [facility] [place] [address] Antwan Stone, TEJASM [address], [place] [address] 03/28/2024 7:30 AM CHAMBER WORKER Anesthesia [place] [address] Shanelle Avila, BACKEND PYTHON DEVELOPER [address] [place] [address] 03/28/2024 7:30 AM CHAMBER WORKER - 03/28/2024 8:48 AM CHAMBER WORKER [place] [address] Antwan Stone, DIEGO [address], [place] [address] REMOVAL OF HARDWARE LEFT FOOT 04/05/2024 8:30 AM CHAMBER WORKER Office Visit [facility] THREE [address] [address] Dominick Mccloud MD [facility] [address] [place] [address] Scheduled Procedures Name Priority Associated Diagnoses Date/Ti me REMOVAL PLATE SCREW OR PIN SCHED BY FAX 02/08/24 [facility] PHONE ASSESS 03/28/2024 7:30 AM CHAMBER WORKER documented as of this encounter Visit Diagnoses Not on filedocumented in this encounter Care Teams Tool Grinder Operator Relationship Specialty Start Date End Date Clara Stanley APNP [address] [place] [address] PCP - General NURSE PRACTITIONER 06/01/18 documented as of this encounter
--- OUTSIDE RECORDS SUMMARY | 2024-03-02 03:24 | XMS_ITS | Encounter Summary ---
Author Organization [facility] Address [address] [place] [address]. [place], [place] [address] [place] [address] Care Team Providers Care Production Miner Name Role Phone Clara Stanley Primary Care Provider [phone] Dominick Mccloud MD Unavailable [phone] Reason for Visit * Reason Comments Anxiety Abdominal Discomfort Encounter Details Date Type Department Care Team (Late st Contact Info) Description 04/01/2019 2:20 PM NATIONAL SERVICE OFFICER Office Visit [facility] Family & Internal Medicine [facility] [address] [place] [address] Clara Stanley APNP [address] [place] [address] Anxiety; Abdominal Discomfort Social History Tobacco Use Types Packs/Day Years [...] Sign Reading Time Taken Comments Blood Pressure 124/77 04/01/2019 2:19 PM NATIONAL SERVICE OFFICER Pulse 74 04/01/2019 2:19 PM NATIONAL SERVICE OFFICER Temperature 36.1 ??C (97 ??F) 04/01/2019 2:19 PM NATIONAL SERVICE OFFICER Respiratory Rate 18 04/01/2019 2:19 PM NATIONAL SERVICE OFFICER Oxygen Saturation 100% 04/01/2019 2:19 PM NATIONAL SERVICE OFFICER Inhaled Oxygen Concentration - - Weight 161 kg (355 lb) 04/01/2019 2:19 PM NATIONAL SERVICE OFFICER Height 190.5 cm (6' 3 ) 04/01/2019 2:19 PM NATIONAL SERVICE OFFICER Body Mass Index 44.37 04/01/2019 2:19 PM NATIONAL SERVICE OFFICER documented in this encounter Progress Notes * ZEB Nunn - 04/01/2019 2:20 PM CST Images from the original note were not included. [facility] FAMILY AND INTERNAL MEDICINE OFFICE VISIT Reason for Visit: Anxiety and Abdominal Discomfort History of Present Illness: Pt here today with c/o abd discomfort and insomnia. He was diagnosed with IIH and aseptic meningitis. Started on acetazolamide and topirimate. He was placed in topirimate for WARD---pt called his neurologist today to see about stopping the topirimate and was given the go ahead for this. His last dose of topirimate was last night. He has some stomach aches, back pain and tingling in his fingers----thinks this is side effects from the topirimate. He describes his pain as a dull ache/pressure in his abdomen---over most of abdomen and in his LLQ.Feels like bloating. He has had some issues with intermittent constipation and diarrhea. States he used 2 enemas 2 days ago and was able to produce a large bowel movement. He states he had a normal bowel movement yesterday and another normal bowel movement today. He is passing gas. He does mention he had some left upper quadrant discomfort a couple of days ago. This has since resolved. He did have an episode of vomiting 2 or 3 days ago but states he did this thinking it would help his discomfort. He did have an episode of diarrhea 3 to 4 days ago, but states this was followed by the constipation which has also since resolved. He denies seeing any blood in his stools or having any black stools. He denies any problem with urination. He does not have any specific reflux symptoms, but does states he feels very gassy. He c/o intermittent low back pain---that started while he was in the hospital--he spent 14 hours [facility] ER stretcher. Feels the symptoms started while in the hospital. He states while he was in the hospital he was given Flexeril for the symptoms symptoms. He feels this helped some. He denies any extremity weakness, loss of bowel or bladder or urinary retention. He states he has been having trouble sleeping. He is uncomfortable. He has tried melatonin, Benadryl without much success. He feels if he could just get 1 good night of sleep he could feel much better. He is due to see both ophthalmology and neurology. He has the appointment set up for ophthalmology but is still waiting to hear from neurology. His blood pressure is well controlled today and he denies any headache. would like him checked for mono due to the continued fatigue and previous WARD. ROS: Review of Systems Constitutional: Positive for malaise/fatigue. Negative for chills and fever. HENT: Negative for congestion and hearing loss. Eyes: Negative for blurred vision and double vision. Respiratory: Negative for cough, shortness of breath and wheezing. Cardiovascular: Negative for chest pain, palpitations and leg swelling. Gastrointestinal: Positive for abdominal pain, constipation, diarrhea, nausea and vomiting. Negative for blood in stool, heartburn and melena. Genitourinary: Negative for dysuria, flank pain, frequency, hematuria and urgency. Musculoskeletal: Positive for back pain. Skin: Negative for itching and rash. Neurological: Negative for dizziness, tingling, sensory change, focal weakness, seizures, loss of consciousness and headaches. Medications: Current Outpatient Medications: ??? acetaZOLAMIDE ER [...] at bedtime. , Disp: , Rfl: ??? cyclobenzaprine 10 MG tablet, Take 1 tablet (10 mg total) by mouth 3 (three) times daily as needed for Muscle Spasms., Disp: 30 tablet, Rfl: 0 ??? ondansetron 4 MG disintegrating tablet, Take [...] daily., Disp: 60 capsule, Rfl: 1 ??? zolpidem (AMBIEN) 10 MG tablet, Take 1 tablet (10 mg total) by mouth nightly as needed for Sleep., Disp: 15 tablet, Rfl: 0 Allergies: No Known Allergies Medical History: Past Medical History: Diagnosis Date ??? Depression with anxiety 12/12/2014 ??? Dry skin dermatitis 01/05/2014 ??? Hyperlipidemia 02/21/2015 ??? Hypertension, benign 01/15/2017 ??? IIH (idiopathic intracranial hypertension) ??? Morbid obesity (CMS/HCC) 02/21/2015 ??? Other and unspecified hyperlipidemia 01/06/2014 Surgical History: Past Surgical History: Procedure Laterality Date ??? APPENDECTOMY Social History: Social History Socioeconomic History ??? [...] ear normal. Left Ear: External ear normal. Eyes: Conjunctivae and EOM are normal. Pupils are equal, round, and reactive to light. No scleral icterus. Neck: Normal range of motion. Neck supple. No tracheal deviation present. Cardiovascular: Normal rate, regular rhythm and normal heart sounds. No murmur heard. Pulmonary/Chest: Effort normal and breath sounds normal. No stridor. No respiratory distress. He has no wheezes. He has no rales. Abdominal: Soft. Bowel sounds are normal. He exhibits no distension and no mass. There is tenderness. There is no rebound and no guarding. No peritoneal signs noted Mild LLQ tenderness with palpation. No masses noted No guarding or rebound tenderness noted. Musculoskeletal: Normal range of motion. He exhibits no deformity. No specific bony tenderness noted over spine. Some lumbar and thoracic muscle tenderness noted withpalpation. Lymphadenopathy: He has no cervical adenopathy. Neurological: He is alert and oriented to person, place, and time. Gait normal. Skin: Skin is warm and dry. No rash noted. No erythema. No pallor. Psychiatric: Mood and affect normal. Nursing note and vitals reviewed. Filed Vitals: 04/01/19 1419 BP: 124/77 Pulse: 74 Resp: 18 Temp: 97 ??F (36.1 ??C) SpO2: 100% Weight: (!) 161 kg (355 lb) Height: 6' 3 (1.905 m) Labs: Labs Reviewed Diagnoses/Impression: 1. IIH (idiopathic intracranial hypertension) Chronic 2. Insomnia, unspecified type zolpidem (AMBIEN) 10 MG tablet 3. Fatigue, unspecified type CBC W/DIFF AUTOMATED COMPREHENSIVE METABOLIC PANEL HETEROPHILE ANTIBODIES,SCREEN COLLECT.CAPILLARY (FNGR,HEEL,EAR) 4. Acute bilateral low back pain without sciatica cyclobenzaprine 10 MG tablet 5. Abdominal bloating ranitidine 150 MG capsule Recommendations and Plan: 1. IIH (idiopathic intracranial hypertension) Stable. Headache has resolved. He is to continue his current dose of acetazolamide and follow-up with his neurologist. 2. Insomnia, unspecified type - zolpidem (AMBIEN) 10 MG tablet; Take 1 tablet (10 mg total) by mouth nightly as needed for Sleep.Dispense: 15 tablet; Refill: 0 I did provide patient today with a few Ambien to help him sleep over the next couple of days. He was strongly cautioned on this medication and advised of risk, benefits and side effects including addiction potential. I did instruct patient to only use this on an as-needed basis preferably no more than every other day. Patient verbalized understanding. 3. Fatigue, unspecified type - CBC W/DIFF AUTOMATED; Future - COMPREHENSIVE METABOLIC PANEL; Future - HETEROPHILE ANTIBODIES,SCREEN - COLLECT.CAPILLARY (FNGR,HEEL,EAR) We will recheck CBC and metabolic panel. Monospot checked today. And found to be negative. 4. Acute bilateral low back pain without sciatica - cyclobenzaprine 10 MG tablet; Take 1 tablet (10 mg total) by mouth 3 (three) times daily as needed for Muscle Spasms. Dispense: 30 tablet; Refill: 0 Patient was given a refill of Flexeril to help with back pain. Instructed to use moist heat as needed. Patient reminded not to take the cyclobenzaprine with other sedating meds including his ambien. Pt verbalized understanding. 5. Abdominal bloating - ranitidine 150 MG capsule; Take 1 capsule (150 mg total) by mouth 2 (two) times daily. Dispense: 60 capsule; Refill: 1 Suspect this may be due to new meds or reflux I had pt start on ranitidine and placed back on my schedule for Thursday for short follow up. Danger signs discussed with pt today and he is to go to ER ifdevelops these. Orders Placed This Encounter ??? COLLECT.CAPILLARY (FNGR,HEEL,EAR) ??? CBC W/DIFF AUTOMATED ??? COMPREHENSIVE METABOLIC PANEL ??? HETEROPHILE ANTIBODIES,SCREEN ??? DISCONTD: topiramate 50 MG Tab ??? acetaZOLAMIDE ER 500 MG 12 hr capsule ??? zolpidem (AMBIEN) 10 MG tablet ??? cyclobenzaprine 10 MG tablet ??? ranitidine 150 MG capsule Cannot display discharge medications since this is not an admission. PCP: ZEB Nunn 04/07/2019 ONAL SERVICE OFFICER ONAL SERVICE OFFICER documented in this encounter Plan of Treatment Upcoming Encounters Date Type Department Care Team (Late st Contact Info) Description 03/28/2024 7:30 AM NATIONAL SERVICE OFFICER Hospital Encounter [facility] [place] [address] Antwan Stone DPM [address], [place] [address] 03/28/2024 7:30 AM NATIONAL SERVICE OFFICER Anesthesia Event [place] [address] Shanelle Avila, RABIES INSPECTOR [address] [place] [address] 03/28/2024 7:30 AM NATIONAL SERVICE OFFICER - 03/28/2024 8:48 AM NATIONAL SERVICE OFFICER [facility] [place] [address] Antwan Stone DPM [address] [place] [address] REMOVAL OF HARDWARE LEFT FOOT 04/05/2024 8:30 AM NATIONAL SERVICE OFFICER Office Visit Darren Hernandez'Marbella lopezn THREE [facility], [address] [place] [address] Dominick Mccloud MD Three [facility]. [facility] [address] [place], [place] [id number] Scheduled Procedures Name Priority Associated Diagnoses Date/Ti me REMOVAL PLATE SCREW OR PIN SCHED BY FAX 02/08/24 KAYLIE PHONE ASSESS 03/28/2024 7:30 AM NATIONAL SERVICE OFFICER documented as of this encounter Procedures Procedure Name Priority Date/Time Associated Diagnosis Comments COLLECT.CAPILLARY (FNGR,HEEL,EAR) Routine 04/01/2019 3:16 PM NATIONAL SERVICE OFFICER Fatigue, unspecified type HETEROPHILE ANTIBODIES,SCREEN Routine 04/01/2019 Fatigue, unspecified type documented in this encounter Results * (ABNORMAL) COMPREHENSIVE METABOLIC PANEL (04/04/2019 2:38 PM NATIONAL SERVICE OFFICER) [facility] GLUCOSE 87 70 - 99 MG/DL 04/04/2019 4:03 PM NATIONAL SERVICE OFFICER [facility] BUN 14 7 - 18 MG/DL 04/04/2019 4:03 PM [facility] CREATININE S/P/B 0.83 0.7 - 1.3 MG/DL 04/04/2019 4:03 PM [facility] SODIUM S/P/B 132(L) 136 - 145 MMOL/L 04/04/2019 4:03 PM [facility] POTASSIUM S/P/B 3.7 3.5 - 5.1 MMOL/L 04/04/2019 4:03 PM [facility] CHLORIDE S/P/B 103 100 - 108 MMOL/L 04/04/2019 4:03 PM [facility] CO2 22.8 21 - 32 MMOL/L 04/04/2019 4:03 PM [facility] CALCIUM S/P/B 8.9 8.5 - 10.1 MG/DL 04/04/2019 4:03 PM [facility] BILIRUBIN TOTAL S/P/B 0.3 0.2 - 1.2 MG/DL 04/04/2019 4:03 PM [facility] TOTAL PROTEIN S/P/B 8.0 6.4 - 8.2 G/DL 04/04/2019 4:03 PM [facility] ALBUMIN S/P/B 4.0 3.4 - 5.0 G/DL 04/04/2019 4:03 PM [facility] AST 11(L) 15 - 37 U/L 04/04/2019 4:03 PM [facility] ALT 28 16 - 60 U/L 04/04/2019 4:03 PM [facility] ALKALINE PHOSPHATASE S/P/B 83 50 - 136 U/L 04/04/2019 4:03 PM [facility] ANION GAP 6.2 5 - 15 MMOL/L 04/04/2019 4:03 PM [facility] BUN CREATININE RATIO 16.8 6 - 26 04/04/2019 4:03 PM [facility] A/G RATIO 1.0 1.0 - 2.0 RATIO 04/04/2019 4:03 PM [facility] EGFR NON-AFR. AMER. >90 >90 ML/MIN/1.7 3 M2 04/04/2019 4:03 PM [facility] EGFR AFR. AMER. >90 >90 ML/MIN/1.7 3 M2 04/04/2019 4:03 PM NATIONAL SERVICE OFFICER [facility] Comment: NOTE: eGFR is not calculated for patients <18 years of age. This is an estimated GFR (CKD EPI) and should not be used for calculating drug doses. 04/04/2019 2:38 PM NATIONAL SERVICE OFFICER Clara CARRINGTON LABORATORY Final Resul t [facility] [address] [place] [address], * (ABNORMAL) CBC W/DIFF AUTOMATED (04/04/2019 2:38 PM NATIONAL SERVICE OFFICER) WBC 12.5(H) 4.5 - 11.0 x10'3/uL 04/04/2019 3:30 PM [facility] RBC 4.89 4.70 - 6.10 x10'6/uL 04/04/2019 3:30 PM [facility] HGB 13.9(L) 14.0 - 18.0 G/DL 04/04/2019 3:30 PM [facility] HCT 41.7(L) 43.0 - 54.0 % 04/04/2019 3:30 PM [facility] MCV 85.3 80.0 - 94.0 FL 04/04/2019 3:30 PM [facility] MCH 28.4 27.0 - 31.0 PG 04/04/2019 3:30 PM [facility] MCHC 33.3 32.0 - 36.0 G/DL 04/04/2019 3:30 PM [facility] RDW 13.0 11.5 - 14.5 % 04/04/2019 3:30 PM [facility] PLT 322 130 - 400 x10'3/uL 04/04/2019 3:30 PM [facility] MPV 11.3 9.3 - 12.2 FL 04/04/2019 3:30 PM [facility] DIFFERENTIAL TYPE AUTOMATED DIFFERENTIAL 04/04/2019 3:30 PM [facility] NEUTROPHILS % 76.8 % 04/04/2019 3:30 PM [facility] LYMPHOCYTES % 12.4 % 04/04/2019 3:30 PM [facility] MONOCYTES % 7.6 % 04/04/2019 3:30 PM [facility] EOSINOPHILS 1.6 % 04/04/2019 3:30 PM [facility] BASOPHILS 0.6 % 04/04/2019 3:30 PM [facility] IMMATURE GRANS % 1.0 % 04/04/19 3:30 PM [facility] ABS. NEUTROPHILS TOTAL 9.54(H) 1.80 - 7.70 x10'3/uL 04/04/2019 3:30 PM [facility] ABS. LYMPHOCYTES 1.55 1.00 - 4.80 x10'3/uL 04/04/2019 3:30 PM [facility] ABS. MONOCYTES 0.95(H) 0.30 - 0.82 x10'3/uL 04/04/2019 3:30 PM [facility] ABS. EOSINOPHILS 0.20 0.04 - 0.54 x10'3/uL 04/04/2019 3:30 PM [facility] ABS. BASOPHILS 0.08 0.01 - 0.08 x10'3/uL 04/04/2019 3:30 PM [facility] ABS. IMMATURE GRANULOCYTES 0.13 0.00 - 0.49 x10'3/uL 04/04/2019 3:30 PM NATIONAL SERVICE OFFICER [facility] 04/04/2019 2:38 PM NATIONAL SERVICE OFFICER Clara CARRINGTON LABORATORY Final Resul t Performing Organization Address [facility]/[employer] de Phone Number [facility] [address] [place] [address], * HETEROPHILE ANTIBODIES,SCREEN (04/01/2019) HETEROPHILE ANTIBODIES negative NEGATIVE [facility] Internal Control: VALID VALID [facility] 04/01/2019 Clara CARRINGTON LABORATORY Final Resul t Performing Organization Address [facility] de Phone Number [facility] [address] [place] [address], documented in this encounter Visit Diagnoses Diagnosis IIH (idiopathic intracranial hypertension)- Primary Benign intracranial hypertension Insomnia, unspecified type Fatigue, unspecified type Acute bilateral low back pain without sciatica Abdominal bloating Flatulence, eructation, and gas pain Painful orthopaedic hardware (CMS/HCC)- Primary documented in this encounter Care Teams Production Miner Relationship Specialty Start Date End Date Clara Stanley APNP [facility] [place] [address] PCP - General NURSE PRACTITIONER 06/01/18 Dominick Mccloud MD Three [facility]. [address] [place] [address] [employer] Associate CARDIOVASCULAR DISEASE 03/28/19 documented as of this encounter
--- OUTSIDE RECORDS SUMMARY | 2024-03-02 03:24 | XMS_ITS | Encounter Summary ---
Author Organization [facility] Address [address] [place] [address]. [place], [place] [address] [place] [address] Care Team Providers Care Peeled Potato Inspector Name Role Phone Clara Stanley Ricardo CARRINGTON Primary Care Provider [phone] Reason for Visit * Reason Comments Report (SCAN) [facility] - PROGRESS NOTES - GASTROENTEROLOGY INITIAL VISIT: CONSULT FOR COLONOSCOPY Encounter Details Date Type Department Care Team (Late Contact Info) Description 06/17/2018 Scan HEALTH INFO SRVCS Scanned, Documents Report (SCAN) ([facility] - PROGRESS NOTES - GASTROENTEROLOGY INITIAL VISIT: CONSULT FOR COLONOSCOPY) Social History Tobacco Use Types Packs/Day Years [...] (Late Contact Info) Description 03/28/2024 7:30 AM MATRIX REPAIRER Hospital Encounter [facility] One Day Services [address] [place], [place] [address] Antwan Stone DPM [address] [place] [address] 03/28/2024 7:30 AM MATRIX REPAIRER Anesthesia Event [place] [address] Shanelle Avila, TAPE SEWER [address] [place] [address] 03/28/2024 7:30 AM MATRIX REPAIRER - 03/28/2024 8:48 AM MATRIX REPAIRER Surgery [place] [address] Antwan Stone, DPM [address] [place] [address] REMOVAL OF HARDWARE LEFT FOOT 04/05/2024 8:30 AM MATRIX REPAIRER Office Visit [facility] THREE [facility], [facility] [address] [place] [address] Dominick Mccloud MD Three [facility]. [facility] [address] [place] [address] Scheduled Procedures Name Priority Associated Diagnoses Date/Ti me REMOVAL PLATE SCREW OR PIN SCHED BY FAX 02/08/24 [facility] PHONE ASSESS 03/28/2024 7:30 AM MATRIX REPAIRER documented as of this encounter Visit Diagnoses Not on filedocumented in this encounter Care Teams Peeled Potato Inspector Relationship Specialty Start Date End Date Clara Stanley APNP [address] [place] [address] PCP - General NURSE PRACTITIONER 06/01/18 documented as of this encounter
--- OUTSIDE RECORDS SUMMARY | 2024-03-02 03:24 | XMS_ITS | Encounter Summary ---
Author Organization [facility] Address [address] [place] [address]. [place], [place] [address] [place] [address] Care Team Providers Care Grey Tender Name Role Phone Clara Stanley Ricardo CARRINGTON Primary Care Provider [phone] Reason for Visit * Reason Comments Form (SCAN) [facility] SCHEDULING FORM Office Documentation (SCAN)* PATIENT [facility] Encounter Details Date Type Department Care Team (Late st Contact Info) Description 06/18/2018 Scan HEALTH Detectent SRVCS Scanned, Documents Form (SCAN) ([facility] SCHEDULING FORM); Office Documentation (SCAN)* (PATIENT DEMOGRAPHICS) Social History Tobacco Use Types Packs/Day Years [...] (Late Contact Info) Description 03/28/2024 7:30 AM [facility] Hospital Encounter [facility] [place] [address] Antwan Stone, DPM [address], [place] [address] 03/28/2024 7:30 AM SLIP FILLER Anesthesia Event [place] [address] Shanelle Avila, SHEETING PULLER [address] [place] [address] 03/28/2024 7:30 AM SLIP FILLER - 03/28/2024 8:48 AM SLIP FILLER Surgery [facility] [place] [address] Antwan Stone, DIEGO [address] [place] [address] REMOVAL OF HARDWARE LEFT FOOT 04/05/2024 8:30 AM SLIP FILLER Office Visit [facility] THREE [facility], [facility] [address] [place] [address] Dominick Mccloud MD Three [facility]. [facility] [address] [place] [address] Scheduled Procedures Name Priority Associated Diagnoses Date/Ti me REMOVAL PLATE SCREW OR PIN SCHED BY FAX 02/08/24 [facility] PHONE ASSESS 03/28/2024 7:30 AM SLIP FILLER documented as of this encounter Visit Diagnoses Not on filedocumented in this encounter Care Teams Grey Tender Relationship Specialty Start Date End Date Clara Stanley APNP [address] [place] [address] PCP - General NURSE PRACTITIONER 06/01/18 documented as of this encounter
--- OUTSIDE RECORDS SUMMARY | 2024-03-02 03:24 | XMS_ITS | Encounter Summary ---
Author Organization [facility] Address [address] [place] [address]. [address] [address] Care Team Providers Care Mba Internship Name Role Phone Clara Stanley Primary Care Provider [phone] Reason for Visit * Reason Onset Date Comments Headache 03/23/2019 Encounter Details Date Type Department Care Team (Late st Contact Info) Description 03/23/2019 Telephone [facility] Medical Group Family & Internal Medicine [place] [place] [address] Clara Stanley APNP [address] [place] [address] Headache Social History Tobacco Use Types Packs/Day Years [...] Progress Notes * Estrellita Chi MA - 03/23/2019 9:28 AM CST Patients informed that we are recommending Kwaku to go back to ER. Voiced understanding and will go to U. R 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 * ZEB Nunn - 03/23/2019 9:25 AM CST Other than a still elevated WBC at 13.1--there were no abnormalities. I ran this by my collaborating physician and we think he needs to return to the ER. R 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 * Cris Yusuf - 03/23/2019 7:18 AM CST Pts calling, pts headache worsened last night and he could not sleep, she said he is in tears.Asking if they could get lab results anastasiya and if there is any other testing that might be able to see what is wrong? R 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 documented in this encounter Plan of Treatment Upcoming Encounters Date Type Department Care Team (Late st Contact Info) Description 03/28/2024 7:30 AM WAFER 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 Hospital Encounter [facility] [place] [address] Antwan Stone DPM [address], [place] [address] 03/28/2024 7:30 AM WAFER 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 Anesthesia [place] [address] Shanelle Avila, DIRECTOR OF RESPIRATORY THERAPY [address] [place] [address] 03/28/2024 7:30 AM WAFER 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 - 03/28/2024 8:48 AM WAFER 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 Surgery [place] [address] Antwan Stone DPM [address], [place] [address] REMOVAL OF HARDWARE LEFT FOOT 04/05/2024 8:30 AM WAFER 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 Office Visit Darren Hernandez'Marbella fleming THREE [facility], [facility] [address] [place] [address] Dominick Mccloud MD Three [facility]. [facility] [address] [place], [place] [id number] Scheduled Procedures Name Priority Associated Diagnoses Date/Ti me REMOVAL PLATE SCREW OR PIN SCHED BY FAX 02/08/24 KAYLIE PHONE ASSESS 03/28/2024 7:30 AM WAFER 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 documented as of this encounter Visit Diagnoses Not on filedocumented in this encounter Care Teams Mba Internship Relationship Specialty Start Date End Date Clara Stanley APNP [address] [place] [address] PCP - General NURSE PRACTITIONER 06/01/18 documented as of this encounter
--- OUTSIDE RECORDS SUMMARY | 2024-03-02 03:24 | XMS_ITS | Encounter Summary ---
Author Organization [facility] Address [address] [place] [address]. [place], [place] [address] [place] [address] Care Team Providers Care Combat Systems Officer Name Role Phone Clara Stanley Primary Care Provider [phone] Reason for Visit * Reason Onset Date Comments Follow Up Call 07/06/2018 Encounter Details Date Type Department Care Team (Late st Contact Info) Description 07/06/2018 Telephone [facility] Medical Group Multispecialty Care - [facility] [address] [facility] [address] [place] [address] Hector Delgado MD 3 [facility] [address] [place] [address] Follow Up Call Social History Tobacco Use [...] as of this encounter Progress Notes * Patria Denson - 07/06/2018 7:46 AM CDT Pt had colonscopy last week and started bleeding yesterday, a lot of blood. He did have 4 polyps removed. Called PCP who then spoke to Dr Delgado, he said if it continues to come in today. It is continuing when he goes #2. [phone] documented in this encounter Plan of Treatment Upcoming Encounters Date Type Department Care Team (Late st Contact Info) Description 03/28/2024 7:30 AM BRAKE SHOE REBUILDER Hospital Encounter [facility] [place] [address] Antwan Stone DPM [address], [place] [address] 03/28/2024 7:30 AM BRAKE SHOE REBUILDER Anesthesia Event [facility] [address] Shanelle Avila, GLOST KILN OPERATOR [address] [place] [address] 03/28/2024 7:30 AM BRAKE SHOE REBUILDER - 03/28/2024 8:48 AM BRAKE SHOE REBUILDER Surgery [facility] [address] Antwan Stone DPM [address], [place] [address] REMOVAL OF HARDWARE LEFT FOOT 04/05/2024 8:30 AM BRAKE SHOE REBUILDER Office Visit Darren Chaudhari-O'F allon [facility] [place] [address] [place] [address] Dominick Mccloud MD Three [facility]. [facility] [address] [place] [address] Scheduled Procedures Name Priority Associated Diagnoses Date/Ti me REMOVAL PLATE SCREW OR PIN SCHED BY FAX 02/08/24 KHMary PHONE ASSESS 03/28/2024 7:30 AM BRAKE SHOE REBUILDER documented as of this encounter Visit Diagnoses Not on filedocumented in this encounter Care Teams Combat Systems Officer Relationship Specialty Start Date End Date Clara Stanley APNP [address] [place] [address] PCP - General NURSE PRACTITIONER 06/01/18 documented as of this encounter
--- OUTSIDE RECORDS SUMMARY | 2024-03-02 03:24 | XMS_ITS | Encounter Summary ---
Author Organization [facility] Address [address] [place] [address]. [place], [place] [address] [place] [address] Care Team Providers Care Senior It Architect Name Role Phone Clara Stanley Primary Care Provider [phone] Reason for Visit * Reason Comments Cough Encounter Details Date Type Department Care Team (Late st Contact Info) Description 10/04/2018 2:00 PM CDT Office Visit [facility] Medical Group Family & Internal Medicine [place] [place] [address] Clara Stanley APNP [facility] [place], [place] [id number] Cough Social History Tobacco Use Types Packs/Day Years [...] Sign Reading Time Taken Comments Blood Pressure 125/72 10/04/2018 2:08 PM CDT Pulse 64 10/04/2018 2:08 PM CDT Temperature 36.2 ??C (97.2 ??F) 10/04/2018 2:08 PM CD T Respiratory Rate 18 10/04/2018 2:08 PM CDT Oxygen Saturation 98% 10/04/2018 2:08 PM CDT Inhaled Oxygen Concentration - - Weight 166.9 kg (368 lb) 10/04/2018 2:08 PM CDT Height 190.5 cm (6' 3 ) 10/04/2018 2:08 PM CDT Body Mass Index 46 10/04/2018 2:08 PM CDT documented in this encounter Progress Notes * ZEB Nunn - 10/04/2018 2:00 PM CDT Images from the original note were not included. [facility] FAMILY AND INTERNAL MEDICINE OFFICE VISIT Reason for Visit: Cough History of Present Illness: Pt here today with c/o cough that started a few weeks ago. He states he had bronchitis a couple of weeks ago. For the most part, these symptoms have improved, but is cough seems to linger. He states after eating or with laughing or excessive talking, his cough seems to be worse. He denies any heartburn symptoms. Denies any CP, SOB, wheezing or pain with breathing or coughing. He has been self treating at home with zyrtec---which he already takes for allergies. Feels this isnot necessarily helping. He states over all he feels good----just a lingering cough. Pt states after thinking about it---he feels like he has had this intermittent cough for the past few years. No change or worsening of cough noted. He denies any recent travel, fever or chills, weight loss, fatigue, GERD symptoms including acid taste in mouth, esophageal or epigastric burning. ROS: Review of Systems Constitutional: Negative for chills, fever and malaise/fatigue. HENT: Negative for congestion, hearing loss and sore throat. Eyes: Negative for blurred vision and double vision. Respiratory: Positive for cough. Negative for hemoptysis, sputum production, shortness of breath and wheezing. Cardiovascular: Negative for chest pain, palpitations and leg swelling. Gastrointestinal: Negative for abdominal pain, diarrhea, nausea and vomiting. Skin: Negative for itching and rash. Neurological: Negative for dizziness and headaches. Medications: Current Outpatient Medications: ??? amlodipine 10 MG tablet, Take 1 tablet (10 mg total) by mouth daily., Disp: 90 tablet, Rfl: 3 ??? cetirizine (ZYRTEC ALLERGY) 10 MG tablet, , Disp: , Rfl: ??? Magnesium 100 MG Tab, Take by mouth daily., Disp: , Rfl: ??? pravastatin 20 MG tablet, Take 1 tablet (20 mg total) by mouth nightly at bedtime., Disp: 90 tablet, Rfl: 3 Allergies: No Known Allergies Medical History: Past Medical History: Diagnosis Date ??? Depression with anxiety 12/12/2014 ??? Dry skin dermatitis 01/05/2014 ??? Hyperlipidemia 02/21/2015 ??? Hypertension, benign 01/15/2017 ??? Morbid obesity (CMS/HCC) 02/21/2015 ??? Other [...] file Gets together: Not on file Attends gnosticist service: Not on file Active member of [...] Not on file Social History Narrative ??? Not on file Family History: Family History Problem Relation Name Age of Onset ??? Cancer Mother bone ??? Heart Disease Father 65 PE: Physical Exam Constitutional: He is oriented to person, place, and time and well-developed, well-nourished, and in no distress. No distress. HENT: Head: Normocephalic and atraumatic. Right Ear: External ear normal. Left Ear: External ear normal. Mouth/Throat: Oropharynx is clear and moist. No oropharyngeal exudate. Eyes: Conjunctivae and EOM are normal. No scleral icterus. Neck: Normal range of motion. Neck supple. No tracheal deviation present. Cardiovascular: Normal rate, regular rhythm and normal heart sounds. Pulmonary/Chest: Effort normal and breath sounds normal. No stridor. No respiratory distress. He has no wheezes. He has no rales. Lungs CTA Abdominal: Soft. Bowel sounds are normal. He exhibits no distension and no mass. There is no tenderness. There is no rebound and no guarding. Musculoskeletal: Normal range of motion. He exhibits no deformity. Lymphadenopathy: He has no cervical adenopathy. Neurological: He is alert and oriented to person, place, and time. Gait normal. Skin: Skin is warm and dry. No rash noted. He is not diaphoretic. No erythema. No pallor. Psychiatric: Mood and affect normal. Nursing note and vitals reviewed. Filed Vitals: 10/04/18 1408 BP: 125/72 Pulse: 64 Resp: 18 Temp: 97.2 ??F (36.2 ??C) SpO2: 98% Weight: (!) 166.9 kg (368 lb) Height: 6' 3 (1.905 m) Labs: Labs Reviewed Diagnoses/Impression: 1. Cough XR CHEST PA+LAT 2. Gastroesophageal reflux disease without esophagitis Recommendations and Plan: 1. Cough - XR CHEST PA+LAT; Future 2. Gastroesophageal reflux disease without esophagitis Exact etiology of ongoing cough unclear. Chest x-ray ordered today for further evaluation. I did discuss with patient today possible causes of prolonged cough including viral bronchitis, GERD, seasonal allergies. Would like for patient to initiate ranitidine 150 mg twice daily (patient states he has quite a bit of this medication at home to see if there is an improvement in his symptoms.) if there is no improvement would like for him to change his Zyrtec to Claritin. Reflux education discussed with patient and given written upon discharge today. Would like to see patient back in 4 to 6 weeks for reevaluation of symptoms. In the meantime, he is to let me know if symptoms worsen. Orders Placed This Encounter ??? XR CHEST PA+LAT Cannot display discharge medications since this is not an admission. PCP: ZEB Nunn 10/04/2018 documented in this encounter Plan of Treatment Upcoming Encounters Date Type Department Care Team (Late st Contact Info) Description 03/28/2024 7:30 AM CYBER SOFTWARE ENGINEER Hospital En[facility] [address] Antwan Stone, TEJASM [address], [place] [address] 03/28/2024 7:30 AM CYBER SOFTWARE ENGINEER Anesthesia [place] [address] Shanelle Avila, WIRE WRAPPER 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 [address] [place] [address] 03/28/2024 7:30 AM CYBER SOFTWARE ENGINEER - 03/28/2024 8:48 AM CYBER SOFTWARE ENGINEER [place] [address] Antwan Stone, DIEGO [address], [place], [place] [address] REMOVAL OF HARDWARE LEFT FOOT 04/05/2024 8:30 AM CYBER SOFTWARE ENGINEER Office Visit Darren Chaudhari-O'F lonnie THREE [facility], [facility] [address] [place] [address] Dominick Mccloud MD Three [facility]. [facility] [address] [place] [address] Scheduled Procedures Name Priority Associated Diagnoses Date/Ti me REMOVAL PLATE SCREW OR PIN SCHED BY FAX 02/08/24 KAYLIE PHONE ASSESS 03/28/2024 7:30 AM CYBER SOFTWARE ENGINEER documented as of this encounter Results * XR CHEST PA+LAT (10/04/2018 3:08 PM CDT) Anatomical Region Laterality Modality Chest Radiographic Trang ging 10/04/2018 3:43 PM CDT Impressions 10/04/2018 4:07 PM CDT IMPRESSION: No acute cardiopulmonary findings. The attending radiologist has reviewed the image(s) and agrees with the content of this report. Interpreted By: Antwan Jeffery, 10/04/2018 3:43 PM Narrative 10/04/2018 4:07 PM CDT Examination: XR CHEST PA+LAT Exam time: 10/04/2018 3:00 PM Clinical history: Chronic cough. History of HTN. Comparison: None available. Technique: PA and lateral views of the chest. Findings: The cardiomediastinal silhouette is within normal limits. No pulmonary vascular congestion. No focal pulmonary consolidation, pleural effusion or pneumothorax. No acute osseous abnormalities. Procedure Note Kiran Tom MD - 10/04/2018 Examination: XR CHEST PA+LAT Exam time: 10/04/2018 3:00 PM Clinical history: Chronic cough. History of HTN. Comparison: None available. Technique: PA and lateral views of the chest. Findings: The cardiomediastinal silhouette is within normal limits. No pulmonary vascular congestion. No focal pulmonary consolidation, pleural effusionor pneumothorax. No acute osseous abnormalities. IMPRESSION: No acute cardiopulmonary findings. The attending radiologist has reviewed the image(s) and agrees with the content of this report. Interpreted By: Antwan Jeffery, 10/04/2018 3:43 PM Clara [facility] Final Resul t documented in this encounter Visit Diagnoses Diagnosis Cough- Primary Gastroesophageal reflux disease without esophagitis Esophageal reflux Painful orthopaedic hardware (CMS/HCC)- Primary documented in this encounter Care Teams Senior It Architect Relationship Specialty Start Date End Date Clara Stanley APNP [address] [place] [address] PCP - General NURSE PRACTITIONER 06/01/18 documented as of this encounter
--- OUTSIDE RECORDS SUMMARY | 2024-03-02 03:24 | XMS_ITS | Encounter Summary ---
Author Organization [facility] Address [address] [place] [address]. [place], [place] [address] [place] [address] Care Team Providers Care University Services Program Associate Name Role Phone Clara Stanley Primary Care Provider [phone] Reason for Visit * Reason Comments Varicose Veins * Surgical (Routine) - Closed Specialty Diagnoses / Procedures Referred By Contact Referred To Contact VASCULAR SURGERY / Cardiology Diagnoses Asymptomatic varicose veins of right lower extremity Clara Stanley APNP [address] [place] [address] Phone: tel: fax: [facility] at [address] [address] Phone: tel: fax: Referral ID Status Reason Start Date Expiration Date V isits Requested Visits Authorized [id number] Closed Specialty Services 02/04/2019 03/05/2020 99 99 Encounter Details Date Type Department Care Team (Late st Contact Info) Description 03/03/2019 10:15 AM JAVA DEVELOPER ARCHITECT Office Visit [facility] at [facility] [address] [place], [place] [id number] Antwan Milton MD [facility]. [facility] [address] [place], [place] [id number] Varicose Veins Social History Tobacco Use Types Packs/Day Years [...] Sign Reading Time Taken Comments Blood Pressure 156/100 03/03/2019 10:20 AM JAVA DEVELOPER ARCHITECT Pulse 76 03/03/2019 10:20 AM JAVA DEVELOPER ARCHITECT Temperature - - Respiratory Rate - - Oxygen Saturation - - Inhaled Oxygen Concentration - - Weight 171.4 kg (377 lb 12.8 oz) 2018 10:20 AM JAVA DEVELOPER ARCHITECT Height 190.5 cm (6' 3 ) 03/03/2019 10:2 0 AM JAVA DEVELOPER ARCHITECT Body Mass Index 47.22 03/03/2019 10:20 AM JAVA DEVELOPER ARCHITECT documented in this encounter Patient Instructions * Patient Instructions* Ese Hanson - 03/03/2019 10:15 AM JAVA DEVELOPER ARCHITECT Images from the original note were not included. Patient Education Patient Education Varicose Veins and Other Vein Disease in the Legs The Basics Written by the doctors and editors at [facility] What is vein disease???--??Vein disease [...] around, and try not to sit or blind escort one place for a long time ?? [...] process is complete. This topic retrieved from [employer] on: Oct 27, 2018. Topic 73691 Version 8.0 Release: 27.3.2 - C27.227 ?2019??[employer] and/or its affiliates.??All rights reserved. picture 1: Telangiectasias (spider veins) on the lower leg This is a picture of telangiectasias (spider veins), which are small veins that are swollen. These are also called hyphen webs or thread veins. Graphic 43146 Version 3.0 picture 2: Severe varicose veins This is a picture of varicose veins, which are swollen and twisted veins in the legs. Graphic 76730 Version 2.0 figure 1: Pitting edema To check for swelling, a doctor or nurse can press on the skin and then remove his or her finger. If the indent stays there, the person has swelling. Doctors call this pitting edema. Graphic 06500 Version 10.0 figure 2: Gkdc-gyvwpe-ets method to put on compression stockings The kipq-oknjty-tge method to put on compression stockings is [...] right-side out (as shown in C). Graphic 69874 Version 7.0 table 1: Tips for using [...] stockings can be put on using the gqzb-oghzwt-cpx method. The urjp-kckpbx-kcf method to put on compression stockings is [...] can help you put on stockings. Graphic 21618 Version 5.0 Consumer Information Use and Disclaimer [...] that is right for you.The use of [employer] content is governed by the [employer] Terms of Use. ??2019 [employer]. All rights reserved. Copyright ?2019??[employer] and/or its affiliates.??All rights reserved. DEVELOPER ARCHITECT documented in this encounter Progress Notes * Antwan Milton MD - 03/03/2019 10:15 AM CST Reason for Visit: Bleeding varicose vein History of Present Illness: This is a 53-year-old male who presents with a large bleeding varicose vein around the right ankle. The patient reports hitting the site several years ago with developmentof the varicose vein. He now has pain and tenderness at the site on a daily basis. He has had several episodes of bleeding at the site. The patient has used compression stockings without relief of his symptoms. Recommendations and Plan: The patient has a painful varicose vein of the right lower extremity withassociated bleeding. I discussed treatment options with the patient including phlebectomy. The patient expressed understanding and wishes to proceed with phlebectomy. Medications: Current Outpatient Medications: ??? amlodipine 10 MG tablet, Take 1 tablet (10 mg total) by mouth daily., Disp: 90 tablet, Rfl: 3 ??? cetirizine (ZYRTEC ALLERGY) 10 MG tablet, , Disp: , Rfl: ??? pravastatin 20 MG tablet, Take 1 tablet (20 mg total) by mouth nightly at bedtime., Disp: 90 tablet, Rfl: 3 No Known Allergies Past Medical History: Diagnosis Date ??? Depression with anxiety 12/12/2014 ??? Dry skin dermatitis 01/05/2014 ??? Hyperlipidemia 02/21/2015 ??? Hypertension, benign 01/15/2017 ??? Morbid obesity (CMS/HCC) 02/21/2015 ??? Other and unspecified hyperlipidemia 01/06/2014 Past Surgical History: Procedure Laterality Date ??? APPENDECTOMY Social History Tobacco Use ??? Smoking status: [...] Alive, age 85y Review of Systems Constitutional: Negative. HENT: Negative. Eyes: Negative. Respiratory: Negative. Cardiovascular: Negative. Gastrointestinal: Negative. Genitourinary: Negative. Musculoskeletal: Negative. Skin: Negative. Neurological: Negative. Endo/Heme/Allergies: Negative. Psychiatric/Behavioral: Negative. All other systems reviewed and are negative. Filed Vitals: 03/03/19 1020 BP: (!) 156/100 Pulse: 76 Weight: (!) 171.4 kg (377 lb 12.8 oz) Height: 6' 3 (1.905 m) Body mass index is 47.22 kg/m??. Physical Exam Rate/Rhythm: . Heart Sounds: . PMI: . Pulses: Edema left: 1+. , Edema Right: 1+. , Constitutional: healthy appearance not distressed. . Neck: neck supple no JVD. . Pulmonary/Chest Wall: effort normal . HEENT: . Abdomen: abdomen soft . Eyes: conjunctivae normal. Neurological: alert, oriented x 3, intact cranial nerves and normal motor skills, . Skin: dry and warm Large varicose vein right ankle and right lower extremity varicose veins. Musculoskeletal: tenderness Cardiovascular Comments: Diagnoses/Impression: 1. 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 [place] [address] Antwan Stone DPM [address], [place] [address] 03/28/2024 7:30 AM JAVA DEVELOPER ARCHITECT Anesthesia [place] [address] Shanelle Avila, FISHING TOOL OPERATOR [address] [place] [address] 03/28/2024 7:30 AM JAVA DEVELOPER ARCHITECT - 03/28/2024 8:48 AM JAVA DEVELOPER ARCHITECT [place] [address] Antwan Stone DPM [address], [place] [address] REMOVAL OF HARDWARE LEFT FOOT 04/05/2024 8:30 AM JAVA DEVELOPER ARCHITECT Office Visit [facility] THREE [facility], [facility] [address] [place] [address] Dominick Mccloud MD Three [facility]. [facility] [address] [place] [address] Scheduled Procedures Name Priority Associated Diagnoses Date/Ti me REMOVAL PLATE SCREW OR PIN SCHED BY FAX 02/08/24 [facility] PHONE ASSESS 03/28/2024 7:30 AM JAVA DEVELOPER ARCHITECT documented as of this encounter Visit Diagnoses Diagnosis Varicose veins of right lower extremity with complications- Primary Painful orthopaedic hardware (CMS/HCC)- Primary documented in this encounter Care Teams University Services Program Associate Relationship Specialty Start Date End Date Clara Stanley APNP [address] [place] [address] PCP - General NURSE PRACTITIONER 06/01/18 documented as of this encounter
--- OUTSIDE RECORDS SUMMARY | 2024-03-02 03:24 | XMS_ITS | Encounter Summary ---
Author Organization [facility] Address [address] [place] [address]. [place], [place] [address] [place] [address] Care Team Providers Care Fountain Waitress/Waiter Name Role Phone Clara Stanley Primary Care Provider [phone] Encounter Details Date Type Department Care Team (Latest Contact Info) Description 03/22/2019 6:17 PM ESTATE ADMINISTRATOR - 03/22/2019 11:59 PM [facility] Hospital Encounter [facility] [place] [address] Clara Stanley APNP [facility] [place], [place] [id number] Discharge Disposition: Home or Self Care (Routine [...] (10 mg total) by mouth daily. 08/08/2014 amlodipine 10 MG tabletIndications:Hy pertension, benign Take 1 tablet (10 mg total) by mouth daily. 90 tablet 3 08/02/2018 0 cefdinir 300 MG Cap capsuleIndications:A cute non-recurrent frontal sinusitis Take 1 capsule (300 mg total) by mouth 2 (two) times daily. 20 capsule 03/22/2019 0 meclizine 25 MG tablet Take 1 tablet (25 mg total) by mouth 3 (three) times daily as needed for Dizziness or Nausea. 20 tablet 03/17/2019 0 ondansetron 4 MG disintegrating tablet Take 1 tablet (4 mg total) by mouth every 8 (eight) hours as needed for Nausea. 10 tablet 03/17/2019 0 pravastatin 20 MG tabletIndications:Mi xed hyperlipidemia Take 1 tablet (20 mg total) by mouth nightly at bedtime. 90 tablet 3 08/02/2018 0 documented as of this encounter Progress Notes * ZEB Nunn - 03/23/2019 2:43 PM CST Results discussed in other task TE ADMINISTRATOR documented in this encounter Plan of Treatment Upcoming Encounters Date Type Department Care Team (Late st Contact Info) Description 03/28/2024 7:30 AM ESTATE ADMINISTRATOR Hospital Encounter [facility] [place] [address] Antwan Stone, DIEGO [address], [place] [address] 03/28/2024 7:30 AM ESTATE ADMINISTRATOR Anesthesia Event [facility] [place] [address] Shanelle Avila, AIR VALVE MECHANIC 1 [place] [address] 03/28/2024 7:30 AM ESTATE ADMINISTRATOR - 03/28/2024 8:48 AM ESTATE ADMINISTRATOR [facility] [place] [address] Antwan Stone, DPM [address], [place] [address] REMOVAL OF HARDWARE LEFT FOOT 04/05/2024 8:30 AM ESTATE ADMINISTRATOR Office Visit Darren Chaudhari-O'F allon THREE [facility], [facility] [address] [place], [place] [address] Dominick Mccloud MD Three [facility]. [facility] [address] [place], [place] [id number] Scheduled Procedures Name Priority Associated Diagnoses Date/Ti me REMOVAL PLATE SCREW OR PIN SCHED BY FAX 02/08/24 [facility] PHONE ASSESS 03/28/2024 7:30 AM ESTATE ADMINISTRATOR documented as of this encounter Procedures Procedure Name Priority Date/Time Associated Diagnosis Comments URINALYSIS WI REFLEX TO CULTURE Routine 03/22/2019 12:24 PM ESTATE ADMINISTRATOR Intractable tension-type headache, unspecified chronicity pattern Dizziness COMPREHENSIVE METABOLIC PANEL Routine 03/22/2019 12:24 PM ESTATE ADMINISTRATOR Intractable tension-type headache, unspecified chronicity pattern Dizziness CBC W/DIFF AUTOMATED Routine 03/22/2019 12:24 PM ESTATE ADMINISTRATOR Intractable tension-type headache, unspecified chronicity pattern Dizziness documented in this encounter Results * (ABNORMAL) COMPREHENSIVE METABOLIC PANEL (03/22/2019 12:24 PM ESTATE ADMINISTRATOR) GLUCOSE 71 70 - 99 MG/DL 03/22/2019 8:35 PM ESTATE ADMINISTRATOR [facility] BUN 12 7 - 18 MG/DL 03/22/2019 8:35 PM ESTATE ADMINISTRATOR [facility] CREATININE S/P/B 0.88 0.7 - 1.3 MG/DL 03/22/2019 8:[address] [facility] SODIUM S/P/B 133(L) 136 - 145 MMOL/L 03/22/2019 8:[address] [facility] POTASSIUM S/P/B 5.1 3.5 - 5.1 MMOL/L 03/22/2019 8:[address] [facility] CHLORIDE S/P/B 99(L) 100 - 108 MMOL/L 03/22/2019 8:[address] [facility] CO2 24.8 21 - 32 MMOL/L 03/22/2019 8:[address] [facility] CALCIUM S/P/B 9.3 8.5 - 10.1 MG/DL 03/22/2019 8:[address] [facility] BILIRUBIN TOTAL S/P/B 0.4 0.2 - 1.2 MG/DL 03/22/2019 8:[address] [facility] TOTAL PROTEIN S/P/B 8.0 6.4 - 8.2 G/DL 03/22/2019 8:[address] [facility] ALBUMIN S/P/B 4.2 3.4 - 5.0 G/DL 03/22/2019 8:[address] [facility] AST 15 15 - 37 U/L 03/22/2019 8:[address] [facility] ALT 24 16 - 60 U/L 03/22/2019 8:[address] [facility] ALKALINE PHOSPHATASE S/P/B 89 50 - 136 U/L 03/22/2019 8:[address] [facility] ANION GAP 9.2 5 - 15 MMOL/L 03/22/2019 8:[address] [facility] BUN CREATININE RATIO 13.7 6 - 26 03/22/2019 8:[address] [facility] A/G RATIO 1.1 1.0 - 2.0 RATIO 03/22/2019 8:[address] [facility] EGFR NON-AFR. AMER. >90 >90 ML/MIN/1.7 3 M2 03/22/2019 8:[address] [facility] EGFR AFR. AMER. >90 >90 ML/MIN/1.7 3 M2 03/22/2019 8:[address] [facility] Comment: NOTE: eGFR is not calculated for patients <18 years of age. This is an estimated GFR (CKD EPI) and should not be used for calculating drug doses. 03/22/2019 12:2 4 PM ESTATE ADMINISTRATOR us Clara CARRINGTON LABORATORY Final Resul t [facility] [address] [place] [address], * URINALYSIS WI REFLEX TO CULTURE (03/22/2019 12:24 PM ESTATE ADMINISTRATOR) SPECIMEN TYPE URINE CLEAN CATCH 03/22/2019 6:[address] [facility] COLOR (U) YELLOW 03/22/2019 7:[address] [facility] TRANSPARENCY CLEAR 03/22/2019 7:[address] [facility] SPECIFIC GRAVITY (U) 1.028 1.001 - 1.030 03/22/2019 7:[address] [facility] U PH 5.0 5.0 - 9.0 03/22/2019 7:[address] [facility] LEUKOCYTES (U) NEGATIVE NEGATIVE 03/22/2019 7:[address] [facility] NITRITES NEGATIVE NEGATIVE 03/22/2019 7:[address] [facility] PROTEIN (U) NEGATIVE <30 MG/DL 03/22/2019 7:44 PM ESTATE ADMINISTRATOR [facility] URINE GLUCOSE NEGATIVE NEGATIVE MG/DL 03/22/2019 7:[address] [facility] KETONES MG/DL (U) NEGATIVE NEGATIVE MG/DL 03/22/2019 7:[address] [facility] UROBILINOGEN NEGATIVE NEGATIVE MG/DL 03/22/2019 7:[address] [facility] BILIRUBIN (U) NEGATIVE NEGATIVE MG/DL 03/22/2019 7:[address] [facility] BLOOD (U) NEGATIVE NEGATIVE 03/22/2019 7:[address] [facility] CULTURE & SENSITIVITY INDICATED? CULTURE IS NOT INDICATED 03/22/2019 7:[address] [facility] SQUAMOUS EPITHELIALS MODERATE /LPF 03/22/2019 7:[address] [facility] MUCUS MODERATE /LPF 03/22/2019 7:[address] [facility] WBC/HPF 1 <6 /HPF 03/22/2019 7:[address] [facility] RBC/HPF <1 <6 /HPF 03/22/2019 7:[address] [facility] URINE SPECIMEN OBTAINED BY CLEAN CATCH PROCEDURE / Unknown 03/22/2019 12:24 PM ESTATE ADMINISTRATOR us Clara CARRINGTON URINE ORDERABLES Final Resu lt [facility] [address] [place] [address], [place] [phone] * (ABNORMAL) CBC W/DIFF AUTOMATED (03/22/2019 12:24 PM ESTATE ADMINISTRATOR) WBC 13.1(H) 4.5 - 11.0 x10'3/uL 03/22/2019 7:[address] [facility] RBC 5.08 4.70 - 6.10 x10'6/uL 03/22/2019 7:[address] [facility] HGB 14.6 14.0 - 18.0 G/DL 03/22/2019 7:[address] [facility] HCT 44.4 43.0 - 54.0 % 03/22/2019 7:[address] [facility] MCV 87.4 80.0 - 94.0 FL 03/22/2019 7:[address] [facility] MCH 28.7 27.0 - 31.0 PG 03/22/2019 7:[address] [facility] MCHC 32.9 32.0 - 36.0 G/DL 03/22/2019 7:[address] [facility] RDW 12.6 11.5 - 14.5 % 03/22/2019 7:[address] [facility] PLT 363 130 - 400 x10'3/uL 03/22/2019 7:[address] [facility] MPV 12.2 9.3 - 12.2 FL 03/22/2019 7:[address] [facility] DIFFERENTIAL TYPE AUTOMATED DIFFERENTIAL 03/22/2019 7:[address] [facility] NEUTROPHILS % 74.1 % 03/22/2019 7:[address] [facility] LYMPHOCYTES % 14.8 % 03/22/2019 7:[address] [facility] MONOCYTES % 8.3 % 03/22/2019 7:[address] [facility] EOSINOPHILS 1.6 % 03/22/2019 7:[address] [facility] BASOPHILS 0.5 % 03/22/2019 7:[address] [facility] IMMATURE GRANS % 0.7 % 03/22/19 20 7:19 PM ESTATE ADMINISTRATOR [facility] ABS. NEUTROPHILS TOTAL 9.69(H) 1.80 - 7.70 x10'3/uL 03/22/2019 7:[address] [facility] ABS. LYMPHOCYTES 1.93 1.00 - 4.80 x10'3/uL 03/22/2019 7:19 PM ESTATE ADMINISTRATOR [facility] ABS. MONOCYTES 1.09(H) 0.30 - 0.82 x10'3/uL 03/22/2019 7:19 PM ESTATE ADMINISTRATOR [facility] ABS. EOSINOPHILS 0.21 0.04 - 0.54 x10'3/uL 03/22/2019 7:[address] [facility] ABS. BASOPHILS 0.07 0.01 - 0.08 x10'3/uL 03/22/2019 7:[address] [facility] ABS. IMMATURE GRANULOCYTES 0.09 0.00 - 0.49 x10'3/uL 03/22/2019 7:[address] [facility] 03/22/2019 12:2 4 PM ESTATE ADMINISTRATOR Clara CARRINGTON LABORATORY Final Resul t [facility] [address] [place] [address], documented in this encounter Visit Diagnoses Diagnosis Intractable tension-type headache, unspecified chronicity pattern Dizziness Dizziness and giddiness Painful orthopaedic hardware (CMS/HCC)- Primary documented in this encounter Care Teams Fountain Waitress/Waiter Relationship Specialty Start Date End Date Clara Stanley APNP [address] [place] [address] PCP - General NURSE PRACTITIONER 06/01/18 documented as of this encounter
--- OUTSIDE RECORDS SUMMARY | 2024-03-02 03:24 | XMS_ITS | Encounter Summary ---
Author Organization [facility] Address [address] [place] [address]. [place], [place] [address] [place] [address] Care Team Providers Care Director Traffic And Planning Name Role Phone Lizeth Clara CARRINGTON Primary Care Provider [phone] Reason for Visit * Reason Comments Colonoscopy Report (SCAN) Encounter Details Date Type Department Care Team (Late Contact Info) Description 06/30/2018 Scan HEALTH INFO SRVCS Scanned, Documents Colonoscopy Report (SCAN) Social History Tobacco Use Types Packs/Day [...] (Late Contact Info) Description 03/28/2024 7:30 AM MANAGER PROPOSAL Hospital Encounter [facility] [place] [address] Antwan Stone DPM [address], [place] [address] 03/28/2024 7:30 AM MANAGER PROPOSAL Anesthesia Event [place] [address] Shanelle Avila, PRODUCTION CHECKER [address] [place] [address] 03/28/2024 7:30 AM MANAGER PROPOSAL - 03/28/2024 8:48 AM MANAGER PROPOSAL Surgery [place] [address] Antwan Stone, DPÁngel [address], [place] [address] REMOVAL OF HARDWARE LEFT FOOT 04/05/2024 8:30 AM MANAGER PROPOSAL Office Visit Darren Chaudhari-O'F allon THREE [facility], [facility] [address] [place] [address] Dominick Mccloud MD Three [facility]. [facility] [address] [place] [address] Scheduled Procedures Name Priority Associated Diagnoses Date/Ti me REMOVAL PLATE SCREW OR PIN SCHED BY FAX 02/08/24 [facility] PHONE ASSESS 03/28/2024 7:30 AM MANAGER PROPOSAL documented as of this encounter Procedures Procedure Name Priority Date/Time Associated Diagnosis Comments PATHOLOGY GENERIC (SCAN ORDER) Routine 06/30/2018 COLONOSCOPY GENERIC (SCAN ORDER) Routine 06/30/2018 documented in this encounter Results * PATHOLOGY (06/30/2018) 06/30/2018 us Documents Scanned SCANNING Final Result * COLONOSCOPY (06/30/2018) us Documents Scanned SCANNING Final Result documented in this encounter Visit Diagnoses Not on filedocumented in this encounter Care Teams Director Traffic And Planning Relationship Specialty Start Date End Date Clara Stanley APNP [address] [place] [address] PCP - General NURSE PRACTITIONER 06/01/18 documented as of this encounter
--- OUTSIDE RECORDS SUMMARY | 2024-03-02 03:24 | XMS_ITS | Encounter Summary ---
Author Organization [facility] Address [address] [place] [address]. [place], [place] [address] [place] [address] Care Team Providers Care Workforce Development Assistant Name Role Phone Clara Stanley Primary Care Provider [phone] Reason for Visit * Reason Onset Date Comments Results 10/04/2018 Encounter Details Date Type Department Care Team (Late st Contact Info) Description 10/04/2018 Telephone [facility] Family & Internal Medicine [place] [address] [place] [address] Clara Stanley APNP [address] [place] [address] Results Social History Tobacco Use [...] Progress Notes * Estrellita Chi MA - 10/04/2018 5:27 PM CDT Patient contacted and informed of WNL cxr tn * Estrellita Chi MA - 10/04/2018 5:27 PM CDT ----- Message from ZEB Nunn sent at 10/04/2018 5:10 PM CDT ----- Let pt know his CXR was WNL documented in this encounter Plan of Treatment Upcoming Encounters Date Type Department Care Team (Late st Contact Info) Description 03/28/2024 7:30 AM ADVISOR TO COMMAND IN COMBAT Hospital Encounter [facility] [place] [address] Antwan Stone, DPM [address], [place] [address] 03/28/2024 7:30 AM ADVISOR TO COMMAND IN COMBAT Anesthesia Event [place] [address] Shanelle Avila, RADIO NEWS WRITER [address] [place] [address] 03/28/2024 7:30 AM ADVISOR TO COMMAND IN COMBAT - 03/28/2024 8:48 AM ADVISOR TO COMMAND IN COMBAT Surgery [facility] [address] Antwan Stone, TEJASM [address], [place] [address] REMOVAL OF HARDWARE LEFT FOOT 04/05/2024 8:30 AM ADVISOR TO COMMAND IN COMBAT Office Visit Darren Chaudhari-O'F allon THREE [facility], [facility] [address] [place] [address] Dominick Mccloud MD Three [facility]. [facility] [address] [place] [address] Scheduled Procedures Name Priority Associated Diagnoses Date/Ti me REMOVAL PLATE SCREW OR PIN SCHED BY FAX 02/08/24 KAYLIE PHONE ASSESS 03/28/2024 7:30 AM ADVISOR TO COMMAND IN COMBAT documented as of this encounter Visit Diagnoses Not on filedocumented in this encounter Care Teams Workforce Development Assistant Relationship Specialty Start Date End Date Clara Stanley APNP [address] [place] [address] PCP - General NURSE PRACTITIONER 06/01/18 documented as of this encounter
--- OUTSIDE RECORDS SUMMARY | 2024-03-02 03:24 | XMS_ITS | Encounter Summary ---
Author Organization [facility] Address [address] [place] [address]. [place], [place] [address] [place] [address] Care Team Providers Care Freight Associate Name Role Phone Lizeth Clara CARRINGTON Primary Care Provider [phone] Encounter Details Date Type Department Care Team (Latest Contact Info) Description 01/28/2019 Scan HEALTH INFO SRVCS Scanned, Documents Social [...] st Contact Info) Description 03/28/2024 7:30 AM BEAMER HAND Hospital Encounter [facility] [place] [address] Antwan Stone DPM [address], [place] [address] 03/28/2024 7:30 AM BEAMER HAND Anesthesia Event [facility] [address] Shanelle Avila, UPHOLSTERY MECHANIC [address] [place] [address] 03/28/2024 7:30 AM BEAMER HAND - 03/28/2024 8:48 AM BEAMER HAND Surgery [facility] [place] [address] Antwan Stone, DPÁngel [address], [place] [address] REMOVAL OF HARDWARE LEFT FOOT 04/05/2024 8:30 AM BEAMER HAND Office Visit Darren Chaudhari-O'F allon THREE [facility], [facility] [address] [place] [address] Dominick Mccloud MD Three [facility]. [facility] [address] [place] [address] Scheduled Procedures Name Priority Associated Diagnoses Date/Ti me REMOVAL PLATE SCREW OR PIN SCHED BY FAX 02/08/24 [facility] PHONE ASSESS 03/28/2024 7:30 AM BEAMER HAND documented as of this encounter Visit Diagnoses Not on filedocumented in this encounter Care Teams Freight Associate Relationship Specialty Start Date End Date Clara Stanley APNP [address] [place] [address] PCP - General NURSE PRACTITIONER 06/01/18 documented as of this encounter
--- OUTSIDE RECORDS SUMMARY | 2024-03-02 03:24 | XMS_ITS | Encounter Summary ---
Author Organization [facility] Address [address] [place] [address]. [place], [place] [address] [place] [address] Care Team Providers Care Superintendent Overhead Distribution Name Role Phone Clara Stanley Primary Care Provider [phone] Dominick Mccloud MD Unavailable [phone] Reason for Referral * Imaging (Emergency) - Closed Specialty Diagnoses / Procedures Referred By Erik t Referred To Contact RADIOLOGY Diagnoses Left upper quadrant pain Procedures CT ABD+PEL W CON Clara Stanley APNP [address] [place] [address] Phone: tel: fax: Referral ID Status Reason Start Date Expiration Date Visits Re quested Visits Authorized [id number] Closed 04/04/2019 07/03/2019 1 1 ISTRY INSTRUCTOR Reason for Visit * Reason Onset Date Comments Orders 04/04/2019 Encounter Details Date Type Department Care Team (Late st Contact Info) Description 04/04/[address] [facility] Family & Internal Medicine - [place] [address] [place] [address] Clara Stanley APNP [address] [place] [address] Orders Social History Tobacco Use [...] Progress Notes * Jadyn Riley MA - 04/04/2019 10:[address] needs to be abd/pelvis with , order entered ISTRY INSTRUCTOR documented in this encounter Plan of Treatment Upcoming Encounters Date Type Department Care Team (Late st Contact Info) Description 03/28/2024 7:30 AM CHEMISTRY INSTRUCTOR Hospital Encounter [facility] [place] [address] Antwan Stone, DIEGO [address], [place] [address] 03/28/2024 7:30 AM CHEMISTRY INSTRUCTOR Anesthesia Event [facility] [address] Shanelle Avila, DOORPERSON [address] [place] [address] 03/28/2024 7:30 AM CHEMISTRY INSTRUCTOR - 03/28/2024 8:48 AM CHEMISTRY INSTRUCTOR Surgery [place] [address] Antwan Stone, DIEGO [address], [place] [address] REMOVAL OF HARDWARE LEFT FOOT 04/05/2024 8:30 AM CHEMISTRY INSTRUCTOR Office Visit Darren Chaudhari-O'Marbella alloelias THREE [facility], [facility] [address] [place] [address] Dominick Mccloud MD Three [facility]. [email or web address] [address] [place] [address] Scheduled Procedures Name Priority Associated Diagnoses Date/Ti me REMOVAL PLATE SCREW OR PIN SCHED BY FAX 02/08/24 [facility] PHONE ASSESS 03/28/2024 7:30 AM CHEMISTRY INSTRUCTOR documented as of this encounter Results * CT ABD+PEL W CON (04/04/2019 3:33 PM CHEMISTRY INSTRUCTOR) Anatomical Region Laterality Modality Abdomen Computed Tomogra phy 04/04/2019 3:58 PM CHEMISTRY INSTRUCTOR Impressions 04/04/2019 4:03 PM CHEMISTRY INSTRUCTOR IMPRESSION: 1. ??Suspicious 1.7 cm right lower [...] 04/04/2019 3:58 PM Narrative 04/04/2019 4:03 PM CHEMISTRY INSTRUCTOR Examination: CT ABD+PEL W CON Clinical history: [...] Primary documented in this encounter Care Teams Superintendent Overhead Distribution Relationship Specialty Start Date End Date Clara Stanley APNP [address] [place] [address] PCP - General NURSE PRACTITIONER 06/01/18 Dominick Mccloud MD [facility] [address] [place] [address] [place] Inspector Repairer CARDIOVASCULAR DISEASE 03/28/19 documented as of this encounter
--- OUTSIDE RECORDS SUMMARY | 2024-03-02 03:24 | XMS_ITS | Encounter Summary ---
Author Organization [facility] Address [address] [place] [address]. [place], [place] [address] [place] [address] Care Team Providers Care Joinery Setter Out Name Role Phone Clara Stanley Primary Care Provider [phone] Reason for Visit * Reason Comments Follow Up Call Bleeding (Rectal) * Consultation (Routine) - Closed Specialty Diagnoses / Procedures Referred By Erik [email or web address] Referred To Contact GASTROENTEROLOGY Diagnoses Colon cancer screening Clara Stanley APNP [address] [place] [address] Phone: tel: fax: [facility] - [address], [address] [place] [phone] Phone: tel: fax: Referral ID Status Reason Start Date Expiration Date Visits Re quested Visits Authorized [id number] Closed 06/07/2018 07/08/2019 100 100 Encounter Details Date Type Department Care Team (Latest Contact Info) Description 07/06/2018 1:00 PM CDT Office Visit [facility] Medical [facility] [address] [phone] Ting Nevarez MD [address] [place] [address] [phone] Follow Up Call; Bleeding (Rectal) Social History Tobacco Use Types Packs/Day Years [...] Sign Reading Time Taken Comments Blood Pressure 138/80 07/06/2018 1:06 PM CDT Pulse - - Temperature - - Respiratory Rate - - Oxygen Saturation - - Inhaled Oxygen Concentration - - Weight 163.3 kg (360 lb) 07/06/2018 1:06 PM CDT Height 190.5 cm (6' 3 ) 07/06/2018 1:06 PM CDT Body Mass Index 45 07/06/2018 1:06 PM CDT documented in this encounter Progress Notes * Ting Nevarez MD - 07/06/2018 1:00 PM CDT Images from the original note were not included. Gastroenterology Established Visit Reason for Visit: Follow Up Call and Bleeding (Rectal) History of Present Illness: Complains of rectal bleeding 1 week after colonoscopy polypectomy. It was bright red blood in it occurred yesterday and this morning. She denies chest pain. He denies dizziness or diaphoresis. He otherwise feels well. ROS: General: No fever, chills, malaise, fatigue, weight loss or gain HEENT: No acute changes in vision or hearing Respiratory: No shortness of breath, cough, sputum production, hemoptysis Cardiovascular: No chest pain, palpitations, orthopnea Gastrointestinal: As per HPI Musculoskeletal: No dysuria, hematuria, incontinence Neuro: No extremity edema, myalgia Hematology: No easy bruising, bleeding Skin: No new skin rashes or lesions Medications: Current Outpatient Medications: ??? amlodipine 10 MG tablet, Take 1 tablet (10 mg total) by mouth daily., Disp: 90 tablet, Rfl: 0 ??? cetirizine (ZYRTEC ALLERGY) 10 MG tablet, , Disp: , Rfl: ??? fish oil 1000 MG Cap capsule, , Disp: , Rfl: ??? Magnesium 100 MG Tab, Take by mouth daily., Disp: , Rfl: ??? Na sulfate-K sulfate-Mg sulfate (SUPREP BOWEL PREP KIT) 17.5-3.13-1.6 GM/177ML Solution, Take 177 mLs by mouth every 12 (twelve) hours. Take as directed by instruction sheet., Disp: 2 Bottle, Rfl: 0 ??? pravastatin 10 MG tablet, Take 1 tablet (10 [...] file Gets together: Not on file Attends latter-day service: Not on file Active member of [...] bone ??? Heart Disease Father 65 PE: Filed Vitals: 07/06/18 1306 BP: 138/80 Weight: (!) 163.3 kg (360 lb) Height: 6' 3 (1.905 m) PainSc: 0 (0-10 Scale) General: In NAD, pleasant and appropriate HEENT: Anicteric Cardiovascular: RRR, no m Pulmonary: CTA BL, no added sounds Abdomen: Soft, ND/NT, normoactive BS Skin: Anicteric, no rashes Neuro: A&Ox3 Labs: Labs Reviewed None Diagnoses/Impression: Rectal bleeding after polypectomy of the colon. I suspect a scab has fallen off or may be the clip is fallen off. Especially the clip over the descending colonoscopy polyp. Polyps were benign but fairly advanced polyps including adenomas and tubular villous adenomas. Recommendations and Plan: ?? We will watch for further signs of continued bleeding. If he bleeds for more than 3 days he willneed a repeat colonoscopy. If he is dizzy or diaphoretic he will need a admission and possible colonoscopy. We will check a stat H&H. Colonoscopy is recommended in 3 years. Risks/Benefits/Options: Patient presented with risks (can include but are not limited to: discomfort, missing lesions, allergic or adverse reaction to the sedation, perforation of the bowel which may require hospitaliztion and surgery, bleeding, infection, aspiration), benefits, and alternatives to the procedure(s) and they are in agreement to proceed as planned. ITNG NEVAREZ MD 07/06/2018 documented in this encounter Plan of Treatment Upcoming Encounters Date Type Department Care Team (Late st Contact Info) Description 03/28/2024 7:30 AM CASHIER GENERAL Hospital Encounter [facility] [place] [address] Antwan Stone DPM [address], [place] [address] 03/28/2024 7:30 AM CASHIER GENERAL Anesthesia Event [facility] [place] [address] Shanelle Avila, COAL DELIVERER [address] [place] [address] 03/28/2024 7:30 AM CASHIER GENERAL - 03/28/2024 8:48 AM CASHIER GENERAL Surgery [facility] [place] [address] Antwna Stone, DPÁngel [address], [place] [address] REMOVAL OF HARDWARE LEFT FOOT 04/05/2024 8:30 AM CASHIER GENERAL Office Visit [facility] THREE [facility], [facility] [address] [place] [address] Dominick Mccloud MD Three [facility]. [facility] [address] [place], [place] [address] Scheduled Procedures Name Priority Associated Diagnoses Date/Ti me REMOVAL PLATE SCREW OR PIN SCHED BY FAX 02/08/24 [facility] PHONE ASSESS 03/28/2024 7:30 AM CASHIER GENERAL documented as of this encounter Visit Diagnoses Diagnosis Adenomatous polyp of descending colon- Primary Painful orthopaedic hardware (CMS/HCC)- Primary documented in this encounter Care Teams Joinery Setter Out Relationship Specialty Start Date End Date Clara Stanley APNP [address] [place] [address] PCP - General NURSE PRACTITIONER 06/01/18 documented as of this encounter
--- OUTSIDE RECORDS SUMMARY | 2024-03-02 03:24 | XMS_ITS | Encounter Summary ---
Author Organization [facility] Address [address] [place] [address]. [place] [address] [place] [address] Care Team Providers Care Swing Frame Grinder Operator Name Role Phone Clara Stanley Primary Care Provider [phone] Dominick Mccloud MD Unavailable [phone] Alexis Lopez MD Unavailable [phone] Encounter Details Date Type Department Care Team (Late st Contact Info) Description 07/06/2018 Abstract [facility] [address] [place] [address] Hector Delgado MD [address] [place] [address] Social History Tobacco Use Types Packs/Day [...] COVID-19? No / Unsure 03/28/2020 11:13 AM COOK VACUUM KETTLE documented as of this encounter Plan of Treatment Upcoming Encounters Date Type Department Care Team (Late st Contact Info) Description 03/28/2024 7:30 AM COOK VACUUM KETTLE Hospital Encounter [facility] [place] [address] Antwan Stone, DIEGO [address], [place] [address] 03/28/2024 7:30 AM COOK VACUUM KETTLE Anesthesia [place] [address] Shanelle Avila, RAEANN [address] [place] [address] 03/28/2024 7:30 AM COOK VACUUM KETTLE - 03/28/2024 8:48 AM COOK VACUUM KETTLE [place] [address] Antwan cruz, DIEGO [address], [place] [address] REMOVAL OF HARDWARE LEFT FOOT 04/05/2024 8:30 AM COOK VACUUM KETTLE Office Visit [facility] THREE [facility], [facility] [address] [place] [address] Dominick Mccloud MD Three [facility]. [facility] [address] [place] [address] Scheduled Procedures Name Priority Associated Diagnoses Date/Ti me REMOVAL PLATE SCREW OR PIN SCHED BY FAX 02/08/24 [facility] PHONE ASSESS 03/28/2024 7:30 AM COOK VACUUM KETTLE documented as of this encounter Visit Diagnoses Not on filedocumented in this encounter Additional Health Concerns Infection Onset Date Last Indicated Resolved Time COVID-19 Rule Out 10/28/2019 10/28/2019 10/30/2019 8:53 AM CDT documented as of this encounter Care Teams Swing Frame Grinder Operator Relationship Specialty Start Date End Date Clara Stanley APNP [address] [place] [address] PCP - General NURSE PRACTITIONER 06/01/18 Dominick Mccloud MD [place] [address] [place] [address] [place] Computer Numerical Control Grinder CARDIOVASCULAR DISEASE 03/28/19 Alexis Lopez MD [address] [facility] [address] [address] PULMONARY DISEASE 10/21/19 documented as of this encounter
--- OUTSIDE RECORDS SUMMARY | 2024-03-02 03:24 | XMS_ITS | Encounter Summary ---
Author Organization [facility] Address [address] [place] [address]. [place], [place] [address] [place] [address] Care Team Providers Care Aws Software Development Engineer Name Role Phone Irwin Stanley Primary Care Provider [phone] Dominick Mccloud MD Unavailable [phone] Reason for Visit * Reason Comments Follow Up Encounter Details Date Type Department Care Team (Late st Contact Info) Description 04/04/2019 9:20 AM CLINICAL NURSE LEADER Office Visit [facility] Internal Medicine [place] [address] [place] [phone] Irwin Stanley APNP [facility] [place] [address] Follow Up Social History Tobacco Use Types [...] Sign Reading Time Taken Comments Blood Pressure 131/77 04/04/2019 10:02 AM CLINICAL NURSE LEADER Pulse 79 04/04/2019 9:25 AM CLINICAL NURSE LEADER Temperature 35.6 ??C (96 ??F) 04/04/2019 9:25 AM CLINICAL NURSE LEADER Respiratory Rate 16 04/04/2019 9:25 AM CLINICAL NURSE LEADER Oxygen Saturation 100% 04/04/2019 9:25 AM CLINICAL NURSE LEADER Inhaled Oxygen Concentration - - Weight 163.3 kg (360 lb) 04/04/2019 9:25 AM CLINICAL NURSE LEADER Height 190.5 cm (6' 3 ) 04/04/2019 9:25 AM CLINICAL NURSE LEADER Body Mass Index 45 04/04/2019 9:25 AM CLINICAL NURSE LEADER documented in this encounter Progress Notes * ZEB Nunn - 04/04/2019 9:20 AM CSTAddended by: IRWIN STANLEY on: 04/07/2019 11:57 AM Modules accepted: Level of Service ICAL NURSE LEADER * ZEB Nunn - 04/04/2019 9:20 AM CST Images from the original note were not included. [facility] OFF[facility] VISIT Reason for Visit: Follow Up History of Present Illness: Pt here today for TCM and a follow up from Thursday where he was treated for insomnia and abdominal discomfort. TCM -patient was mended through [facility] per neurology service on March 23, 2019 and discharged on March 25, 2019. 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 Patient was discharged home on acetazolamide and topiramate. He states he has been unable to tolerate the topiramate and discontinued this on of last week after contacting neurology at [facility]. While at [facility] patient had a lumbar puncture which was negative for viral fungus or bacteria. He had a head CT, brain MRI and brain MRA all of which were negative. He did have an elevated white blood cell count, but he had this previously at [facility]. It is never resolved. He was discharged home with instructions to follow-up with both ophthalmology and neurology. Patientis not having any visual difficulties at today's visit. States his headache has resolved. He does not have a fever. At his visit with me on Thursday he did have a CBC and metabolic panel ordered with plans to have this done today. Pt returns today for a follow up---appears fatigued/ill. He was started on ranitidine for abd pain and zolpidem for sleep at his visit on Thursday with me. He states the abd pain has worsened and zolpidem did not help with sleep. Not sure why not sleeping---thinks because he is so uncomfortable. At his last visit--he was previously taken off of topirimate----thinking this was contributing to the abd discomfort---has not had topirimate since last . He continues to have low back pain as well. Abd pain--he describes as located in his LUQ---states pain is constant and he is unable to get any relief. He feels constipated---states has not had a BM in 3 days. No nausea or vomiting or diarrhea.He denies any fever or chills. Labs were ordered at his last visit with me-----but pt was going to wait until to day to have these done. Pt states he is passing a small amount of gas. He does admit to taking a hydrocodone yesterday he had at home. This did not help. He has noticed any bloody or black stools. Back pain----feels like this has improved---but still present. Denies any loss of bowel or bladder or trouble urinating. Denies any weakness of his lower extremities. Pain is located on left side of back from mid back down to low back. ROS: Review of Systems Constitutional: Positive for malaise/fatigue. Negative for chills and fever. HENT: Negative for congestion and hearing loss. Eyes: Negative for blurred vision and double vision. Respiratory: Negative for cough, shortness of breath and wheezing. Cardiovascular: Negative for chest pain, palpitations and leg swelling. Gastrointestinal: Positive for abdominal pain and constipation. Negative for blood in stool, diarrhea, heartburn, melena, nausea and vomiting. Genitourinary: Negative for dysuria, flank pain, frequency, hematuria and urgency. Musculoskeletal: Positive for back pain. Skin: Negative for itching and rash. Neurological: Negative for dizziness and headaches. Psychiatric/Behavioral: The patient has insomnia. Medications: Current Outpatient Medications: ??? acetaZOLAMIDE ER [...] IIH (idiopathic intracranial hypertension) ??? Morbid obesity ([facility]) 02/21/2015 ??? Other and unspecified hyperlipidemia 01/06/2014 [...] file Gets together: Not on file Attends amish service: Not on file Active member of [...] no distress. HENT: Head: Normocephalic and atraumatic. Eyes: Conjunctivae and EOM are normal. No scleral icterus. Neck: Normal range of motion. Neck supple. No tracheal deviation present. Cardiovascular: Normal rate, regular rhythm and normal heart sounds. No murmur heard. Pulmonary/Chest: Effort normal and breath sounds normal. No stridor. No respiratory distress. He has no wheezes. He has no rales. Abdominal: Soft. Bowel sounds are normal. He exhibits distension. He exhibits no mass. There is tenderness. There is no rebound and no guarding. Tenderness upon palpation to left upper quadrant. No LLQ at today's visit--moved to LUQ. No peritoneal signs noted No mass palpated . No rebound tenderness noted No rebound tenderness or tenderness noted in either lower quadrant. Musculoskeletal: Normal range of motion. He exhibits no deformity. Mild tenderness noted to left side of back. Neurological: He is alert and oriented to person, place, and time. Gait normal. No focal neuro deficits noted. Equal hand grasps and pedal pushes. No signs of footdrop noted. Skin: Skin is warm and dry. No rash noted. No erythema. No pallor. Psychiatric: Mood and affect normal. Nursing note and vitals reviewed. Filed Vitals: 04/04/19 0925 04/04/19 1002 BP: (!) 144/85 131/77 Pulse: 79 Resp: 16 Temp: 96 ??F (35.6 ??C) SpO2: 100% Weight: (!) 163.3 kg (360 lb) Height: 6' 3 (1.905 m) Labs: Labs Reviewed Diagnoses/Impression: 1. Left upper quadrant pain CANCELED: CT ABD W CON 2. Acute left-sided low back pain without sciatica XR LUMB SPINE 3V 3. Mid back pain XR THOR SPINE 3V 4. Constipation, unspecified constipation type CANCELED: CT ABD W CON Recommendations and Plan: 1. Left upper quadrant pain Exact etiology unclear of patient's continued abdominal pain/left upper quadrant pain. Patient has not had a bowel movement in 3 days concerning for bowel obstruction. He did have some LLQ tendernessat Thursday's visit. This has seemingly resolved but would still be reasonable to include diverticulitis in differential diagnoses. Stat abdominal CT ordered and appointment made for today. Danger signs discussed with pt today and he is to go to ER if develops any of these. 2. Acute left-sided low back pain without sciatica - XR LUMB SPINE 3V; Future Mid and low back pain both improving. No neuro signs noted. Thoracic and lumbar spine x-ray orderedtoday for further evaluation. More plan after results if needed. Home treatment discussed today. 3. Mid back pain - XR THOR SPINE 3V; Future 4. Constipation, unspecified constipation type Orders Placed This Encounter ??? XR LUMB SPINE 3V ??? XR THOR SPINE 3V Cannot display discharge medications since this is not an admission. PCP: ZEB Nunn 04/04/2019 ICAL NURSE LEADER ICAL NURSE LEADER documented in this encounter Plan of Treatment Upcoming Encounters Date Type Department Care Team (Late st Contact Info) Description 03/28/2024 7:30 AM CLINICAL NURSE LEADER Hospital Encounter [facility] [address] Antwan Stone, DIEGO [address], [place] [address] 03/28/2024 7:30 AM CLINICAL NURSE LEADER Anesthesia [place] [address] Shanelle Avila, FLIGHT PARAMEDIC [address] [place] [address] 03/28/2024 7:30 AM CLINICAL NURSE LEADER - 03/28/2024 8:48 AM CLINICAL NURSE LEADER [place] [address] Antwan Stone, DIEGO [address], [place] [address] REMOVAL OF HARDWARE LEFT FOOT 04/05/2024 8:30 AM CLINICAL NURSE LEADER Office Visit [facility], [facility] [address] [place] [address] Dominick Mccloud MD Three [facility]. [facility] [address] [place] [address] Scheduled Procedures Name Priority Associated Diagnoses Date/Ti me REMOVAL PLATE SCREW OR PIN SCHED BY FAX 02/08/24 [facility] PHONE ASSESS 03/28/2024 7:30 AM CLINICAL NURSE LEADER documented as of this encounter Results * XR THOR SPINE 3V (04/04/2019 10:23 AM CLINICAL NURSE LEADER) Anatomical Region Laterality Modality Spine Radiographic Trang ging 04/04/2019 10:0 8 AM CLINICAL NURSE LEADER Narrative 04/04/2019 9:47 PM CLINICAL NURSE LEADER Thoracic spine Exam Date: 04/04/2019. Indications: Mid back pain. Technique: 3 views of the thoracic spine were obtained. Comparison: None. Findings: No evidence of acute fracture or subluxation. ??There are degenerative changes throughout the thoracic spine. IMPRESSION: Degenerative changes. ??No evidence of acute fracture or subluxation. Interpreted By: Mark Saravia MD, 04/04/2019 9:39 PM Procedure Note Mark Saravia MD - 04/04/2019 Thoracic spine Exam Date: 04/04/2019. Indications: Mid back pain. Technique: 3 views of the thoracic spine were obtained. Comparison: None. Findings: No evidence of acute fracture or subluxation. There are degenerativechanges throughout the thoracic spine. IMPRESSION: Degenerative changes. No evidence of acute fracture or subluxation. Interpreted By: Mark Saravia MD, 04/04/2019 9:39 PM [facility] Final Resul t * XR LUMB SPINE 3V (04/04/2019 10:22 AM CLINICAL NURSE LEADER) Anatomical Region Laterality Modality Spine Radiographic Trang ging 04/04/2019 3:24 PM CLINICAL NURSE LEADER Impressions 04/04/2019 3:25 PM CLINICAL NURSE LEADER IMPRESSION: No acute findings Interpreted By: Ruben Mahoney MD, 04/04/2019 3:24 PM Narrative 04/04/2019 3:25 PM CLINICAL NURSE LEADER 3 VIEWS OF THE LUMBAR SPINE Clinical History: Back pain Comparison: None 3 views of the lumbar spine demonstrate no evidence of fracture or malalignment. The vertebral body heights and intervertebral disc heights are symmetric throughout. Facets appear normal. The spinous processes and transverse processes are normally aligned. Procedure Note Ruben Mahoney MD - 04/04/2019 3 VIEWS OF THE LUMBAR SPINE Clinical History: Back pain Comparison: None 3 views of the lumbar spine demonstrate no evidence of fracture or malalignment. The vertebral body heights and intervertebral disc heights are symmetric throughout. Facets appear normal. The spinous processesand transverse processes are normally aligned. IMPRESSION: No acute findings Interpreted By: Ruben Mahoney MD, 04/04/2019 3:24 PM Irwin [facility] Final Resul t documented in this encounter Visit Diagnoses Diagnosis Left upper quadrant pain- Primary Abdominal pain, left upper quadrant Acute left-sided low back pain without sciatica Mid back pain Backache, unspecified Constipation, unspecified constipation type Painful orthopaedic hardware (CMS/HCC)- Primary documented in this encounter Care Teams Aws Software Development Engineer Relationship Specialty Start Date End Date Irwin Stanley APNP [address] [place] [address] PCP - General NURSE PRACTITIONER 06/01/18 Dominick Mccloud MD [facility] [address] [place] [address] Hammond Culinary Worker CARDIOVASCULAR DISEASE 03/28/19 documented as of this encounter
--- OUTSIDE RECORDS SUMMARY | 2024-03-02 03:24 | XMS_ITS | Encounter Summary ---
Author Organization [facility] Address [address] [place] [address]. [place], [place] [address] [place] [address] Care Team Providers Care Sail Finisher Hand Name Role Phone Clara Stanley Primary Care Provider [phone] Reason for Visit * Reason Onset Date Comments Rectal Problem 07/06/2018 Encounter Details Date Type Department Care Team (Late st Contact Info) Description 07/06/2018 Telephone [facility] [place] [place] [phone] Clara Stanley APNP [facility] [place] [address] Rectal Problem Social History Tobacco Use Types Packs/Day [...] Progress Notes * Jadyn Riley MA - 07/06/2018 4:07 PM CDT Patient had cscope done 5 days a go and started having rectal bleeding yesterday and again this morning , per our discussion advised patient to go to ER-sjs documented in this encounter Plan of Treatment Upcoming Encounters Date Type Department Care Team (Late st Contact Info) Description 03/28/2024 7:30 AM LAN/WAN ENGINEER Hospital Encounter [facility] [place] [address] Antwan Stone, DIEGO [address], [place] [address] 03/28/2024 7:30 AM LAN/WAN ENGINEER Anesthesia Event [place] [address] Shanelle Avila, RAEANN [address] [place] [address] 03/28/2024 7:30 AM LAN/WAN ENGINEER - 03/28/2024 8:48 AM LAN/WAN ENGINEER Surgery [place] [address] Antwan Stone, DIEGO [address], [place] [address] REMOVAL OF HARDWARE LEFT FOOT 04/05/2024 8:30 AM LAN/WAN ENGINEER Office Visit [facility] THREE [facility], [facility] [address] [place] [address] Dominick Mccloud MD Three [facility] [address] [place] [address] Scheduled Procedures Name Priority Associated Diagnoses Date/Ti me REMOVAL PLATE SCREW OR PIN SCHED BY FAX 02/08/24 KAYLIE PHONE ASSESS 03/28/2024 7:30 AM LAN/WAN ENGINEER documented as of this encounter Visit Diagnoses Not on filedocumented in this encounter Care Teams Sail Finisher Hand Relationship Specialty Start Date End Date Clara Stanley APNP [address] [place] [address] PCP - General NURSE PRACTITIONER 06/01/18 documented as of this encounter
--- OUTSIDE RECORDS SUMMARY | 2024-03-02 03:24 | XMS_ITS | Encounter Summary ---
Author Organization [facility] Address [address] [place] [address]. [address] [address] Care Team Providers Care V Belt Mold Assembler And Curer Name Role Phone Clara Stanley Primary Care Provider [phone] Reason for Visit * Reason Onset Date Comments Lab Order 08/02/2018 Encounter Details Date Type Department Care Team (Late st Contact Info) Description 08/02/2018 Telephone [facility] Family & Internal Medicine [facility] [address] [place] [address] Clara Stanley APNP [address] [place] [address] Lab Order Social History Tobacco Use Types Packs/Day Years [...] encounter Progress Notes * ZEB Nunn - 08/02/2018 9:58 AM CDT Already ordered * Anika Russell - 08/02/2018 9:38 AM CDT Pt needs routine 6 months labs ordered so he can come get in. documented in this encounter Plan of Treatment Upcoming Encounters Date Type Department Care Team (Late st Contact Info) Description 03/28/2024 7:30 AM ADJUSTER AND INSPECTOR Hospital Encounter [facility] [place] [address] Antwan Stone, DIEGO [address], [place] [address] 03/28/2024 7:30 AM ADJUSTER AND INSPECTOR Anesthesia Event [place] [address] Shanelle Avila, CHIEF INSPECTOR [address] [place] [address] 03/28/2024 7:30 AM ADJUSTER AND INSPECTOR - 03/28/2024 8:48 AM ADJUSTER AND INSPECTOR [place] [address] Antwan Stone, DIEGO [address], [place] [address] REMOVAL OF HARDWARE LEFT FOOT 04/05/2024 8:30 AM ADJUSTER AND INSPECTOR Office Visit [facility] THREE [facility], [facility] [address] [place] [address] Dominick Mccloud MD Three [facility]. [facility] [address] [place] [address] Scheduled Procedures Name Priority Associated Diagnoses Date/Ti me REMOVAL PLATE SCREW OR PIN SCHED BY FAX 02/08/24 [facility] PHONE ASSESS 03/28/2024 7:30 AM ADJUSTER AND INSPECTOR documented as of this encounter Visit Diagnoses Not on filedocumented in this encounter Care Teams V Belt Mold Assembler And Curer Relationship Specialty Start Date End Date Clara Stanley APNP [address] [place] [phone] PCP - General NURSE PRACTITIONER 06/01/18 documented as of this encounter
--- OUTSIDE RECORDS SUMMARY | 2024-03-02 03:24 | XMS_ITS | Encounter Summary ---
Author Organization [facility] Address [address] [place] [address]. [place] [address] [place] [address] Care Team Providers Care Technical Intern Name Role Phone Lizeth Clara CARRINGTON Primary Care Provider [phone] Encounter Details Date Type Department Care Team (Late st Contact Info) Description 02/17/2019 [facility] at [facility], [address] [address] Scanned, Documents Social History Tobacco Use Types [...] st Contact Info) Description 03/28/2024 7:30 AM [facility] Hospital Encounter [facility] [place] [address] Antwan Stone DPM [address], [place] [address] 03/28/2024 7:30 AM PRODUCTION MACHINE SHOP SUPERVISOR Anesthesia [place] [address] Shanelle Avila, TRAVELING SALES REPRESENTATIVE [address] [place] [address] 03/28/2024 7:30 AM PRODUCTION MACHINE SHOP SUPERVISOR - 03/28/2024 8:48 AM PRODUCTION MACHINE SHOP SUPERVISOR Surgery [place] [address] Antwan Stone, DPÁngel [address], [place] [address] REMOVAL OF HARDWARE LEFT FOOT 04/05/2024 8:30 AM PRODUCTION MACHINE SHOP SUPERVISOR Office Visit Darren [facility]-O'F allon THREE [facility], [facility] [address] [place] [address] Dominick Mccloud MD Three [facility]. [facility] [address] [place] [address] Scheduled Procedures Name Priority Associated Diagnoses Date/Ti me REMOVAL PLATE SCREW OR PIN SCHED BY FAX 02/08/24 [facility] PHONE ASSESS 03/28/2024 7:30 AM PRODUCTION MACHINE SHOP SUPERVISOR documented as of this encounter Visit Diagnoses Not on filedocumented in this encounter Care Teams Technical Intern Relationship Specialty Start Date End Date Clara Stanley APNP [address] [place] [address] PCP - General NURSE PRACTITIONER 06/01/18 documented as of this encounter
--- OUTSIDE RECORDS SUMMARY | 2024-03-02 03:24 | XMS_ITS | Encounter Summary ---
Author Organization [facility] Address [address] [place] [address]. [place] [address] [place] [address] Care Team Providers Care Log Brander Name Role Phone LizethClara Primary Care Provider [phone] Encounter Details Date Type Department Care Team (Late st Contact Info) Description 06/28/2018 Orders Only [facility] Medical Group Priority Care - Kenia Shrestha [address] [place] [address] Ting Delgado MD [address] [id number] Social History Tobacco Use Types Packs/Day Years [...] (Late Contact Info) Description 03/28/2024 7:30 AM [facility] Hospital Encounter [facility] [place] [address] Antwan Stone, DIEGO [address], [place] [address] 03/28/2024 7:30 AM GRIDCAP 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 Anesthesia Event [place] [address] Shanelle Avila, CHARTER BUS DRIVER [address] [place] [address] 03/28/2024 7:30 AM GRIDCAP 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 - 03/28/2024 8:48 AM GRIDCAP 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 Surgery [place] [address] Antwan cruz, DIEGO [address], [place] [address] REMOVAL OF HARDWARE LEFT FOOT 04/05/2024 8:30 AM GRIDCAP 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 Office Visit Darren Chaudhari-O'F allon THREE [facility], [facility] [address] [place] [address] Dominick Mccloud MD Three [facility]. [facility] [address] [place] [address] Scheduled Procedures Name Priority Associated Diagnoses Date/Ti me REMOVAL PLATE SCREW OR PIN SCHED BY FAX 02/08/24 [facility] PHONE ASSESS 03/28/2024 7:30 AM GRIDCAP 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 documented as of this encounter Procedures Procedure Name Priority Date/Time Associated Diagnosis Comments CARDIOLOGY GENERIC 06/28/2018 2: 37 PM CDT documented in this encounter Results * CARDIOLOGY GENERIC (06/28/2018 2:37 PM CDT) 06/28/2018 2:37 PM CDT Narrative [facility] RAD - 06/28/2018 12:00 AM CDT ? MP BULLOCK MD: TING DELGADO MD ?? ACCT: [id number] ?? ADMIT/SERVICE DATE: 06/28/18 DISCHARGE DATE: ?? : 1965 PT TYPE: REG CLI ?? SEX: M ORD SITE: [facility] ?[facility] ?TEST DATE: ?2018-06-28 ?? PAT NAME: ? MP HELLERUGHERTY ?DEPARTMENT: CARD ? ROOM: ? GENDER: ? MALE ? TIN CAN LABORER: ? : ?1965 ? REQUESTED BY: TING DELGADO ?? ORDER NUMBER: [id number] ?READING MD: ?? REBEKA SHANKAR ?MEASUREMENTS ?? INTERVALS ?AXIS ? RATE: ? 72 ? P: ?1 ?? WI: ? 197 ?QRS: ?-8 ?? QRSD: ? 102 ?T: ?60 ?? QT: ? 382 ? QTC: ?419 ?INTERPRETIVE STATEMENTS ?? SINUS RHYTHM ?? INCOMPLETE RIGHT BUNDLE BRANCH BLOCK ? NO PREVIOUS ECG AVAILABLE FOR COMPARISON ?? ELECTRONICALLY SIGNED BY REBEKA SHANKAR AT 06-28-2018 18:09:24 CDT ? Procedure Note Rebeka Shankar MD - 06/28/2018 MP BULLOCK ORDERING MD: TING DELGADO MD ACCT: [id number] ADMIT/SERVICE DATE: 06/28/18 DISCHARGE DATE: : 1965 PT TYPE: REG CLI SEX: M ORD SITE: [facility] TEST DATE: 2018-06-28 PAT NAME: MP BULLOCK DEPARTMENT: CARD ROOM: GENDER: MALE TIN CAN LABORER: : 1965 REQUESTED BY: TING DELGADO ORDER NUMBER: [id number] READING MD: REBEKA SHANKAR MEASUREMENTS INTERVALS AXIS RATE: 72 P: 1 WI: 197 QRS: -8 QRSD: 102 T: 60 QT: 382 QTC: 419 INTERPRETIVE STATEMENTS SINUS RHYTHM INCOMPLETE RIGHT BUNDLE BRANCH BLOCK NO PREVIOUS ECG AVAILABLE FOR COMPARISON ELECTRONICALLY SIGNED BY REBEKA SHANKAR AT 06-28-2018 18:09:24 CDT us Ting Delgado MD [facility] Final Result Performing Organization Address City/State/[facility] Co de Phone Number [facility] RAD documented in this encounter Visit Diagnoses Not on filedocumented in this encounter Care Teams Log Brander Relationship Specialty Start Date End Date Clara Stanley APNP [address] [place] [address] PCP - General NURSE PRACTITIONER 06/01/18 documented as of this encounter
--- OUTSIDE RECORDS SUMMARY | 2024-03-02 03:24 | XMS_ITS | Encounter Summary ---
Author Organization [facility] Address [address] [place] [address]. [place], [place] [address] [place] [address] Care Team Providers Care Survey Research Associate Name Role Phone Clara Stanley Primary Care Provider [phone] Dominick Mccloud MD Unavailable [phone] Encounter Details Date Type Department Care Team (Late Contact Info) Description 03/28/2019 [facility] at [facility], [address] [phone] Scanned, Documents Social History Tobacco Use Types [...] (Late Contact Info) Description 03/28/2024 7:30 AM [facility] Hospital Encounter [facility] One Day Services ONE [place], [place] [id number] Antwan Stone, DIEGO [address], [place] [address] 03/28/2024 7:30 AM COMPUTER TEACHER Anesthesia [place] [address] Shanelle Avila, BENZOL STILL OPERATOR [address] [place] [address] 03/28/2024 7:30 AM COMPUTER TEACHER - 03/28/2024 8:48 AM COMPUTER TEACHER Surgery [place] [address] Antwan Stone, DPM [address] [place] [address] REMOVAL OF HARDWARE LEFT FOOT 04/05/2024 8:30 AM COMPUTER TEACHER Office Visit Darren Chaudhari-O'F allon THREE [facility], [facility] [address] [place], [place] [address] Dominick Mccloud MD Three [facility]. [facility] [address] [place], [place] [phone] Scheduled Procedures Name Priority Associated Diagnoses Date/Ti me REMOVAL PLATE SCREW OR PIN SCHED BY FAX 02/08/24 [facility] PHONE ASSESS 03/28/2024 7:30 AM COMPUTER TEACHER documented as of this encounter Visit Diagnoses Not on filedocumented in this encounter Care Teams Survey Research Associate Relationship Specialty Start Date End Date Clara Stanley APNP [address] [place] [address] PCP - General NURSE PRACTITIONER 06/01/18 Dominick Mccloud MD [facility]. [facility] [address] [place], [place] [address] Fely Veneer Splicer CARDIOVASCULAR DISEASE 03/28/19 documented as of this encounter
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
--- OUTSIDE RECORDS SUMMARY | 2024-03-02 03:24 | XMS_ITS | Encounter Summary ---
Author Organization [facility] Address [address] [place] [address]. [place], [place] [address] [place] [address] Care Team Providers Care Awning Maker Name Role Phone Clara Stanley Primary Care Provider [phone] Encounter Details Date Type Department Care Team (Late st Contact Info) Description 06/28/2018 Abstract [facility] Cardiopulmonary Services [address] [place], [place] [id number] Hector Delgado MD [address] [address] Social History Tobacco Use Types Packs/Day Years [...] 7:30 AM [facility] Hospital Encounter [facility] [place] [address] Antwan [place], DPM [address], [place] [address] 03/28/2024 7:30 AM SALVAGE LABORER Anesthesia Event [facility] [place] [address] Shanelle Avila, RAEANN [address] [place] [address] 03/28/2024 7:30 AM SALVAGE LABORER - 03/28/2024 8:48 AM SALVAGE LABORER Surgery [facility] [place] [address] Antwan [place], DIEGO [address] [place] [address] REMOVAL OF HARDWARE LEFT FOOT 04/05/2024 8:30 AM SALVAGE LABORER Office Visit [facility], [facility] [address] [place] [address] Dominick Mccloud MD Three [facility]. [facility] [address] [place] [address] Scheduled Procedures Name Priority Associated Diagnoses Date/Ti me REMOVAL PLATE SCREW OR PIN SCHED BY FAX 02/08/24 [facility] PHONE ASSESS 03/28/2024 7:30 AM SALVAGE LABORER documented as of this encounter Visit Diagnoses Diagnosis Encounter for preprocedural cardiovascular examination Pre-operative cardiovascular examination Painful orthopaedic hardware (CMS/HCC)- Primary documented in this encounter Care Teams Awning Maker Relationship Specialty Start Date End Date Clara Stanley APNP [address] [place] [address] PCP - General NURSE PRACTITIONER 06/01/18 documented as of this encounter
--- OUTSIDE RECORDS SUMMARY | 2024-03-02 03:24 | XMS_ITS | Encounter Summary ---
Author Organization [facility] Address [address] [place] [address]. [place], [place] [address] [place] [address] Care Team Providers Care Aerial Gunner Superintendent Name Role Phone Clara Stanley Primary Care Provider [phone] Reason for Referral * Surgical (Routine) - Closed Specialty Diagnoses / Procedures Referred By Contac t Referred To Contact VASCULAR SURGERY Diagnoses Varicose veins of right lower extremity with pain Procedures STAB PHLECTOMY VARICOSE Antwan Milton MD [facility]. [facility] [address] [place] [address] Phone: tel: fax: [facility] [address] [place] [address] Referral ID Status Reason Start Date Expiration Date Visits Re quested Visits Authorized [id number] Closed 04/15/2019 07/14/2019 1 1 D PSYCHOLOGY TEACHER Encounter Details Date Type Department Care Team (Late st Contact Info) Description 03/17/2019 Orders Only [facility] at [facility], [facility] [address] [place] [address] [facility]. [facility] [address] [place] [address] Social History Tobacco Use Types [...] Contact Info) Description 03/28/2024 7:30 AM CHILD PSYCHOLOGY TEACHER Hospital Encounter [facility] [place] [address] Antwan [place], DIEGO [address], [place] [address] 03/28/2024 7:30 AM CHILD PSYCHOLOGY TEACHER Anesthesia Event [facility] [address] Shanelle Avila, BOTTOM LOADER [address] [place] [address] 03/28/2024 7:30 AM CHILD PSYCHOLOGY TEACHER - 03/28/2024 8:48 AM CHILD PSYCHOLOGY TEACHER Surgery [facility] [address] Antwan [place], DIEGO [address], [place] [address] REMOVAL OF HARDWARE LEFT FOOT 04/05/2024 8:30 AM CHILD PSYCHOLOGY TEACHER Office Visit [facility] THREE [address] [address] Dominick Mccloud MD [facility] [address] [place] [address] Scheduled Orders Name Type Priority Associated Diagnoses Orde r Schedule STAB PHLECTOMY VARICOSE Procedures Routine Varicose veins of right lower extremity with pain Ordered: 03/17/2019 Scheduled Procedures Name Priority Associated Diagnoses Date/Ti me REMOVAL PLATE SCREW OR PIN SCHED BY FAX 02/08/24 [facility] PHONE ASSESS 03/28/2024 7:30 AM CHILD PSYCHOLOGY TEACHER documented as of this encounter Visit Diagnoses Diagnosis Varicose veins of right lower extremity with pain- Primary Varicose veins of lower extremities with other complications Painful orthopaedic hardware (CMS/HCC)- Primary documented in this encounter Care Teams Aerial Gunner Superintendent Relationship Specialty Start Date End Date Clara Stanley APNP [facility] [place] [address] PCP - General NURSE PRACTITIONER 06/01/18 documented as of this encounter
--- OUTSIDE RECORDS SUMMARY | 2024-03-02 03:24 | XMS_ITS | Encounter Summary ---
Author Organization [facility] Address [address] [place] [address]. [place], [place] [address] [place] [address] Care Team Providers Care Platen Press Feeder Name Role Phone Clara Stanley Primary Care Provider [phone] Encounter Details Date Type Department Care Team (Late st Contact Info) Description 06/30/2018 Abstract [facility] Day Services [address] [facility], [place] [id number] Hector Delgado MD [address] [address] Social History Tobacco Use Types Packs/Day Years [...] st Contact Info) Description 03/28/2024 7:30 AM [facility] Hospital Encounter [facility] [place] [address] Antwan Stone, DPM [address], [place] [address] 03/28/2024 7:30 AM TILE LAYER Anesthesia Event [facility] [place] [address] Shanelle Avila, CLINICAL APPLICATIONS SPECIALIST [address] [place] [address] 03/28/2024 7:30 AM TILE LAYER - 03/28/2024 8:48 AM TILE LAYER Surgery [facility] [place] [address] Antwan Stone, DIEGO [address] [place] [address] REMOVAL OF HARDWARE LEFT FOOT 04/05/2024 8:30 AM TILE LAYER Office Visit [facility] THREE [facility], [facility] [address] [place] [address] Dominick Mccloud MD Three [facility]. [facility] [address] [place] [address] Scheduled Procedures Name Priority Associated Diagnoses Date/Ti me REMOVAL PLATE SCREW OR PIN SCHED BY FAX 02/08/24 [facility] PHONE ASSESS 03/28/2024 7:30 AM TILE LAYER documented as of this encounter Visit Diagnoses Diagnosis Encounter for screening for malignant neoplasm of colon Special screening for malignant neoplasms, colon Painful orthopaedic hardware (CMS/HCC)- Primary documented in this encounter Care Teams Platen Press Feeder Relationship Specialty Start Date End Date Clara Stanley APNP [address] [place] [address] PCP - General NURSE PRACTITIONER 06/01/18 documented as of this encounter
--- OUTSIDE RECORDS SUMMARY | 2024-03-02 03:24 | XMS_ITS | Encounter Summary ---
Author Organization [facility] - [facility] Address [address] [place] [address]. [place] [address] [place] [address] Care Team Providers Care Crusher Wet Ground Mica Name Role Phone Clara Stanley Primary Care Provider Dominick Mccloud MD Unavailable [phone] Alexis Lopez MD Unavailable [phone] Kip Del Rio MD Unavailable [phone] Encounter Details Date Type Department Care Team (Late st Contact Info) Description 06/30/2018 MARKET RESEARCHER ONLY [facility] Medical Group Priority [facility] - [address] [place] [address] Scanned, Documents Social History Tobacco Use Types [...] as of this encounter OR Notes * Op Note - Zscanned, Documents - 06/30/2018 12:00 AM CDT MP BULLOCK MD: ACCT: [id number] ADMIT/SERVICE DATE: 06/30/18 DISCHARGE DATE: 06/30/18 : 1965 PT TYPE: DEP SDC SEX: M ORD SITE: [facility] CHART DOCUMENT OPERATION RECORD DATE OF OPERATION: 06/30/2018 HISTORY: 53-YEAR-OLD MALE PRESENTS FOR A SCREENING COLONOSCOPY EVALUATION. PROCEDURE: INFORMED CONSENT OBTAINED EARLIER. PATIENT WAS SEEN IN THE OR, PLACED IN THE SUPINE LATERAL DECUBITUS POSITION AND SEDATED UNDER MAC ANESTHESIA. RECTAL EXAM AND PROSTATE, FELT A SMALL IRREGULARITY ON THE PROSTATE. THE REST OF THE RECTAL EXAM IS NEGATIVE. PCF-190 COLONOSCOPE LUBRICATED AND INSERTED INTO THE RECTUM, ADVANCED TO THE CECUM. THE CECUM IS IDENTIFIED BY THE ILEOCECAL VALVE AND THE APPENDICEAL ORIFICE. CECUM LOOKED NORMAL. IN THE ASCENDING COLON THERE WERE A COUPLE POLYPS. THEY WERE ENSNARED AND REMOVED COMPLETELY. RESOLUTION CLIP WAS APPLIED TO THE CRATER AFTER REMOVAL. THE REST OF THE ASCENDING LOOKED NORMAL. TRANSVERSE COLON LOOKED NORMAL. IN THE DESCENDING COLON, A FAIRLY LARGE POLYP WAS SUCCESSFULLY SNARED OFF WITH APPLICATION OF A CLIP AFTERWARD. THE REST OF THE DESCENDING COLON LOOKED NORMAL. TINY RECTAL POLYP WAS REMOVED BY COLD SNARE. SCOPE WITHDRAWN. FINDINGS: 1. SEVERAL POLYPS WERE REMOVED BY SNARE WITH APPLICATION OF CLIPS NECESSARY. SEE ABOVE. 2. PROSTATE FELT IRREGULAR. PLAN: 1. CHECK PATHOLOGY. 2. RECOMMEND THAT HE SEE A UROLOGIST TO GET HIS PROSTATE EXAMINED FURTHER. 3. DEPENDING ON BIOPSY, PATIENT SHOULD HAVE A REPEAT COLONOSCOPY IN 3 TO 5 YEARS PENDING PATHOLOGY. ELECTRONICALLY SIGNED BY TING NEVAREZ MD 07/02/2018 08:00 A SHELLY/CARLOS 06/30/2018 06/30/2018 01:25 P JOB NO: [id number] DOC NO: [id number] CC: MD MARTY ZELAYA NP documented in this encounter Plan of Treatment Upcoming Encounters Date Type Department Care Team (Late st Contact Info) Description 03/28/2024 7:30 AM REGIONAL FACILITIES SPECIALIST Hospital Encounter [facility] [place] [address] Antwan Stone DPM [address], [place] [address] 03/28/2024 7:30 AM REGIONAL FACILITIES SPECIALIST Anesthesia Event [place] [address] Shanelle Avila, DAY SPA MANAGER [address] [place] [address] 03/28/2024 7:30 AM REGIONAL FACILITIES SPECIALIST - 03/28/2024 8:48 AM REGIONAL FACILITIES SPECIALIST Surgery [facility] [place] [address] Antwan Stone, DPÁngel [address] [place] [address] REMOVAL OF HARDWARE LEFT FOOT 04/05/2024 8:30 AM REGIONAL FACILITIES SPECIALIST Office Visit [facility] THREE [facility], [facility] [address] [place] [address] Dominick Mccloud MD Three [facility]. [facility] [address] [place] [address] Scheduled Procedures Name Priority Associated Diagnoses Date/Ti me REMOVAL PLATE SCREW OR PIN SCHED BY FAX 02/08/24 [facility] PHONE ASSESS 03/28/2024 7:30 AM REGIONAL FACILITIES SPECIALIST documented as of this encounter Visit Diagnoses Not on filedocumented in this encounter Additional Health Concerns Infection Onset Date Last Indicated Resolved Time COVID-19 Rule Out 10/28/2019 10/28/2019 10/30/2019 8:53 AM CDT documented as of this encounter Care Teams Crusher Wet Ground Mica Relationship Specialty Start Date End Date Clara Stanley APNP [address] [place] [address] PCP - General NURSE PRACTITIONER 06/01/18 Dominick Mccloud MD Three [facility]. [facility] [address] [place] [address] [place] Client Services Director CARDIOVASCULAR DISEASE 03/28/19 Alexis Lopez MD [address] [facility] [address] [place], [place] [id number] PULMONARY DISEASE 10/21/19 Kip Del Rio MD [address] [facility] [address] [place] [address] MEDICAL ONCOLOGY 02/24/24 documented as of this encounter
--- OUTSIDE RECORDS SUMMARY | 2024-03-02 03:24 | XMS_ITS | Encounter Summary ---
Author Organization [facility] Address [address] [place] [address]. [place] [address] [place] [address] Care Team Providers Care Asphalt Paving Supervisor Name Role Phone Clara Stanley Primary Care Provider [phone] Reason for Visit * Reason Onset Date Comments Insurance Pre-cert 03/04/2019 Encounter Details Date Type Department Care Team (Late st Contact Info) Description 03/04/2019 Telephone [facility] at [facility], [facility] [address] [place], [place] [address] Antwan Milton MD [facility]. [facility] [address] [place] [address] Insurance Pre-cert Social History Tobacco Use Types Packs/Day Years [...] as of this encounter Progress Notes * Ese Hanson - 03/04/2019 10:47 AM CST I called Scott at [phone] to get a pre-cert for CPT code: 17001. They ran the benefits and said that the benefits were only for this year and I would need to call back in March to obtain a pre-cert. NING LATHE OPERATOR documented in this encounter Plan of Treatment Upcoming Encounters Date Type Department Care Team (Late st Contact Info) Description 03/28/2024 7:30 AM SPINNING LATHE OPERATOR Hospital Encounter [facility] [place] [address] Antwan Stone, DIEGO [address], [place] [address] 03/28/2024 7:30 AM SPINNING LATHE OPERATOR Anesthesia [place] [address] Shanelle Avila, BAKERY AND DELI SALES MANAGER [address] [place] [address] 03/28/2024 7:30 AM SPINNING LATHE OPERATOR - 03/28/2024 8:48 AM SPINNING LATHE OPERATOR [place] [address] Antwan Stone, DIEGO [address], [place] [address] REMOVAL OF HARDWARE LEFT FOOT 04/05/2024 8:30 AM SPINNING LATHE OPERATOR Office Visit [facility] THREE [facility], [facility] [address] [place] [address] Dominick Mccloud MD [facility]. [facility] [address] [place] [address] Scheduled Procedures Name Priority Associated Diagnoses Date/Ti me REMOVAL PLATE SCREW OR PIN SCHED BY FAX 02/08/24 [facility] PHONE ASSESS 03/28/2024 7:30 AM SPINNING LATHE OPERATOR documented as of this encounter Visit Diagnoses Not on filedocumented in this encounter Care Teams Asphalt Paving Supervisor Relationship Specialty Start Date End Date Clara Stanley APNP [address] [place] [address] PCP - General NURSE PRACTITIONER 06/01/18 documented as of this encounter
--- OUTSIDE RECORDS SUMMARY | 2024-03-02 03:24 | XMS_ITS | Encounter Summary ---
Author Organization [facility] Address [address] [place] [address]. [place], [place] [address] [place] [address] Care Team Providers Care Magnaflux Operator Name Role Phone Clara Stanley Primary Care Provider [phone] Dominick Mccloud MD Unavailable [phone] Reason for Visit * Reason Onset Date Comments TCM 04/04/2019 Encounter Details Date Type Department Care Team (Late st Contact Info) Description 04/04/2019 Telephone [facility] Medical Group Family & Internal Medicine [facility] [address] [place] [address] Clara Stanley APNP [address] [place] [address] TCM Social History Tobacco Use [...] Progress Notes * Cheri Steiner RN - 04/04/2019 8:50 AM CST Follow up call to patient post hospitalization Date of hospital discharge: 03/25/19 Patient discharged from: [facility] Discharge diagnosis/diagnoses: Aseptic meningitis Current Outpatient Medications: ??? acetaZOLAMIDE ER 500 [...] for Sleep., Disp: 15 tablet, Rfl: 0 Procedures performed while inpatient: No Begin the medication reconciliation process (completed at first face to face visit) Any follow up services needed: Yes Education on self management: No Assess adherence with treatment (medication) regimen and provide support. Does patient have access to care and services (rides, etc)? Yes Appointment scheduled for follow up in the office (7 days if high complexity or within 14 days for medium complexity) Future Appointments Date Time Provider Department Center 04/04/2019 9:20 AM [facility] 04/08/2019 2:30 PM Dominick [facility]cloud [facility] PS[facility]ES SPECIAL[facility] documented in this encounter Plan of Treatment Upcoming Encounters Date Type Department Care Team (Late st Contact Info) Description 03/28/2024 7:30 AM NEURO PSYCH SALES SPECIALIST Hospital Encounter [facility] [place] [address] Antwan Stone, TEJASM [address], [place] [address] 03/28/2024 7:30 AM NEURO PSYCH SALES SPECIALIST Anesthesia [place] [address] Shanelle Avila, RAEANN [address] [place] [address] 03/28/2024 7:30 AM NEURO PSYCH SALES SPECIALIST - 03/28/2024 8:48 AM NEURO PSYCH SALES SPECIALIST Surgery [place] [address] Antwan Stone, DIEGO [address], [place] [address] REMOVAL OF HARDWARE LEFT FOOT 04/05/2024 8:30 AM NEURO PSYCH SALES SPECIALIST Office Visit [facility] THREE [facility], [facility] [address] [place] [address] Dominick Mccloud MD Three [facility]. [facility] [address] [place] [address] Scheduled Procedures Name Priority Associated Diagnoses Date/Ti me REMOVAL PLATE SCREW OR PIN SCHED BY FAX 02/08/24 [facility] PHONE ASSESS 03/28/2024 7:30 AM NEURO PSYCH SALES SPECIALIST documented as of this encounter Visit Diagnoses Not on filedocumented in this encounter Care Teams Magnaflux Operator Relationship Specialty Start Date End Date Clara Stanley APNP [address] [place] [address] PCP - General NURSE PRACTITIONER 06/01/18 Dominick Mccloud MD [facility] [address] [place] [address] Derby Rail Washer CARDIOVASCULAR DISEASE 03/28/19 documented as of this encounter
--- OUTSIDE RECORDS SUMMARY | 2024-03-02 03:24 | XMS_ITS | Encounter Summary ---
Author Organization [facility] Address [address] [place] [address]. [place], [place] [id number] [place] [id number] Care Team Providers Care Hide Inspector And Sorter Name Role Phone Clara Stanley Primary Care Provider [phone] Reason for Referral * Imaging (Emergency) - Closed Specialty Diagnoses / Procedures Referred By Contac t Referred To Contact RADIOLOGY Procedures CT HEAD WO CON Monica Turner PA [address] [place] [address] Phone: tel: fax: Referral ID Status Reason Start Date Expiration Date Visits Re quested Visits Authorized [id number] Closed 03/17/2019 04/17/2020 1 1 CURRENT INSPECTOR Reason for Visit * Reason Comments Headache Dizziness Encounter Details Date Type Department Care Team (Late st Contact Info) Description 03/17/2019 6:49 PM EDDY CURRENT INSPECTOR - 03/17/2019 11:35 PM EDDY CURRENT INSPECTOR Emergency [facility] [place] [address] Leslie Dodson MD [address] [place] [address] [id number] Headache; Dizziness Discharge Disposition: Home or Self Care (Routine [...] Sign Reading Time Taken Comments Blood Pressure 182/98 03/17/2019 11:16 PM EDDY CURRENT INSPECTOR Pulse 85 03/17/2019 11:16 PM EDDY CURRENT INSPECTOR Temperature 36.5 ??C (97.7 ??F) 03/17/2019 6:10 PM CS T Respiratory Rate 18 03/17/2019 11:16 PM EDDY CURRENT INSPECTOR Oxygen Saturation 96% 03/17/2019 11:16 PM EDDY CURRENT INSPECTOR Inhaled Oxygen Concentration - - Weight 169.6 kg (374 lb) 03/17/2019 6:10 PM EDDY CURRENT INSPECTOR Height 190.5 cm (6' 3 ) 03/17/2019 6:10 PM EDDY CURRENT INSPECTOR Body Mass Index 46.75 03/17/2019 6:10 PM EDDY CURRENT INSPECTOR documented in this encounter Discharge Instructions * Discharge Instructions* Leslie Dodson MD - 03/17/2019 11:09 PM EDDY CURRENT INSPECTOR You were seen in the emergency department today for headache, dizziness, myalgias and back pain. Work-up is significant for slightly elevated white blood count, however there is no evidence of pneumonia CURRENT INSPECTOR documented in this encounter Medications at Time of Discharge cetirizine (ZYRTEC) 10 MG tablet Take 1 tablet (10 mg total) by mouth daily. 08/08/2014 amlodipine 10 MG tabletIndications:Hy pertension, benign Take 1 tablet (10 mg total) by mouth daily. 90 tablet 3 08/02/2018 0 meclizine 25 MG tablet Take 1 [...] 08/02/2018 0 documented as of this encounter ED Notes * Milli Mcadams RN - 03/17/2019 11:16 PM CST Pt states understanding of discharge instructions, denies further questions, here to take home CURRENT INSPECTOR * Leslie Dodson MD - 03/17/2019 11:10 PM CST Chief Complaint Chief Complaint Patient presents with ??? Headache ??? Dizziness History of Present Illness Mp Kulkarni is a 53-year-old male with PMH hypertension hyperlipidemia presented to theemergency department with multiple symptoms. He reports he has had upper back and neck pain as wellas generalized fatigue and myalgias over the past week. He denies any neck stiffness. He also reports having some increased sweating at night and mild posterior headaches. He denies any chest pain orshortness of breath. He states he has had some mild vertiginous symptoms which she describes as room spinning which is worse with head movement. He denies any nausea, vomiting, abdominal pain, diarrhea, dysuria. Medical History ALLERGIES: No Known Allergies MEDICATIONS: Prior to Admission medications Medication Sig Start Date End Date Taking? Authorizing Provider amlodipine 10 MG tablet Take 1 tablet (10 mg total) by mouth daily. Patient taking differently: Take 10 mg by mouth nightly at bedtime. 08/02/18 Yes ZEB Nunn cetirizine (ZYRTEC ALLERGY) 10 MG tablet Take 10 mg by mouth nightly at bedtime. 08/08/14 Yes Doc Abstract meclizine 25 MG tablet Take 1 tablet (25 mg total) by mouth 3 (three) times daily as needed for Dizziness or Nausea. 03/17/19 03/27/19 Yes Leslie Dodson MD ondansetron 4 MG disintegrating tablet Take 1 tablet (4 mg total) by mouth every 8 (eight) hours asneeded for Nausea. 03/17/19 Yes Leslie Dodson MD pravastatin 20 MG tablet Take 1 tablet (20 mg total) by mouth nightly at bedtime. 08/02/18 Yes ZEB Jackman PAST MEDICAL HISTORY: Past Medical History: Diagnosis Date ??? Depression with anxiety 12/12/2014 ??? Dry skin dermatitis 01/05/2014 ??? Hyperlipidemia 02/21/2015 ??? Hypertension, benign 01/15/2017 ??? Morbid obesity (CMS/HCC) 02/21/2015 ??? Other and unspecified hyperlipidemia 01/06/2014 PAST SURGICAL HISTORY: Past Surgical History: Procedure Laterality Date ??? APPENDECTOMY FAMILY HISTORY: Family History Problem Relation Name [...] Systems Review of Systems Constitutional: Positive for chills, diaphoresis and fatigue. Negative for fever. HENT: Negative for congestion, ear discharge, ear pain, rhinorrhea and sinus pain. Eyes: Negative for visual disturbance. Respiratory: Negative for cough and shortness of breath. Cardiovascular: Negative for chest pain. Gastrointestinal: Positive for nausea. Negative for abdominal pain, diarrhea and vomiting. Genitourinary: Negative for dysuria and flank pain. Musculoskeletal: Positive for arthralgias, back pain, myalgias and neck pain. Negative for gait problem, joint swelling and neck stiffness. Neurological: Positive for dizziness. Negative for syncope. Psychiatric/Behavioral: Negative for agitation, behavioral problems and confusion. All other systems reviewed and are negative. Physical Exam Filed Vitals: 03/17/19 2030 03/17/19 2224 03/17/19 2230 03/17/19 2316 BP: (!) 150/80 (!) 141/80 (!) 182/98 Pulse: 77 80 84 85 Resp: Temp: SpO2: 93% 97% 96% 96% Weight: Height: Physical Exam Constitutional: He is oriented to person, place, and time. Nontoxic appearing obese male. HENT: Head: Normocephalic and atraumatic. Nose: Nose normal. Mouth/Throat: Oropharynx is clear and moist. Eyes: Conjunctivae and EOM are normal. Pupils are equal, round, and reactive to light. Subtle horizontal nystagmus. Neck: Normal range of motion. Neck supple. Neck is supple with no evidence of meningismus. Cardiovascular: Normal rate, regular rhythm, normal heart sounds and intact distal pulses. Pulmonary/Chest: Effort normal and breath sounds normal. No stridor. No respiratory distress. He has no wheezes. He has no rales. Abdominal: Abdomen is obese, nontender throughout with no rebound or guarding. No hernia or mass palpable. Musculoskeletal: Normal range of motion. He exhibits no edema, tenderness or deformity. Neurological: He is alert and oriented to person, place, and time. Cranial nerves II through XII intact. Sensation strength grossly intact. Skin: Skin is warm and dry. No rash noted. No erythema. No pallor. Psychiatric: He has a normal mood and affect. His behavior is normal. Nursing note and vitals reviewed. Diagnostic Studies / Procedures Pulse oximetry on room air is 96% indicating adequate oxygenation. EKG: sinus rhythm, rate of 87bpm, left axis deviation. ELECTROCARDIOGRAMS: Results for orders placed or performed during the hospital encounter of 03/17/19 ECG 12 lead Narrative [place] Test Date: 2019-03-17 Pat Name: MP KULKARNI Department: Room: [facility] Gender: Male [place] Hiker: [place] : 1965 Requested By: MONICA TURNER Order Number: [id number] Reading MD: Lamont Hall Measurements Intervals [place] Rate: 87 P: 41 WV: 205 QRS: -37 QRSD: 97 T: 22 QT: 375 QTc: 454 Interpretive Statements SINUS RHYTHM MARKED LEFT AXIS DEVIATION INCOMPLETE RIGHT BUNDLE BRANCH BLOCK Compared to ECG 06/28/2018 14:37:35 Left-axis deviation now present CURRENT INSPECTOR LABORATORY STUDIES: Results for orders placed or performed during the hospital encounter of 03/17/19 CBC W/DIFF AUTOMATED Result Value Ref Range WBC 15.9 (H) 4.5 - 11.0 x10'3/uL RBC 5.01 4.70 - 6.10 x10'6/uL HGB 13.9 (L) 14.0 - 18.0 G/DL HCT 44.1 43.0 - 54.0 % MCV 88.0 80.0 - 94.0 FL MCH 27.7 27.0 - 31.0 PG MCHC 31.5 (L) 32.0 - 36.0 G/DL RDW 13.1 11.5 - 14.5 % PLT 285 130 - 400 x10'3/uL MPV 11.6 9.3 - 12.2 FL DIFFERENTIAL TYPE AUTOMATED DIFFERENTIAL NEUTROPHILS 83.7 % LYMPHOCYTES 8.0 % MONOCYTES 6.6 % EOSINOPHILS 0.6 % BASOPHILS 0.5 % IMMATURE GRANS 0.6 % ABS. NEUTROPHILS TOTAL 13.30 (H) 1.80 - 7.70 x10'3/uL ABS. LYMPHOCYTES 1.27 1.00 - 4.80 x10'3/uL ABS. MONOCYTES 1.05 (H) 0.30 - 0.82 x10'3/uL ABS. EOSINOPHILS 0.09 0.04 - 0.54 x10'3/uL ABS. BASOPHILS 0.08 0.01 - 0.08 x10'3/uL ABS. IMMATURE GRANULOCYTES 0.10 0.00 - 0.49 x10'3/uL COMPREHENSIVE METABOLIC PANEL Result Value Ref Range GLUCOSE 107 (H) 70 - 99 MG/DL BUN 15 7 - 18 MG/DL CREATININE 0.80 0.7 - 1.3 MG/DL SODIUM 135 (L) 136 - 145 MMOL/L POTASSIUM 4.1 3.5 - 5.1 MMOL/L CHLORIDE 103 100 - 108 MMOL/L CO2 24.6 21 - 32 MMOL/L CALCIUM 9.3 8.5 - 10.1 MG/DL TOTAL BILIRUBIN 0.5 0.2 - 1.2 MG/DL TOTAL PROTEIN 8.4 (H) 6.4 - 8.2 G/DL ALBUMIN 4.1 3.4 - 5.0 G/DL AST 22 15 - 37 U/L ALT 33 16 - 60 U/L ALK PHOS 91 50 - 136 U/L ANION GAP 7.4 5 - 15 MMOL/L BUN CREATININE RATIO 18.8 6 - 26 A/G RATIO 1.0 1.0 - 2.0 RATIO eGFR Non-Afr. Amer. >90 >90 ML/MIN/1.73 M2 eGFR Afr. Amer. >90 >90 ML/MIN/1.73 M2 D-DIMER, QUANTITATIVE Result Value Ref Range D-DIMER <150 0 - 230 D DU ng/mL LACTIC ACID Result Value Ref Range LACTIC ACID 2.4 (H) 0.4 - 2.0 MMOL/L TROPONIN, QUANT Result Value Ref Range TROPONIN I <0.015 <0.045 ng/mL. URINALYSIS WI REFLEX TO CULTURE Result Value Ref Range Specimen Type URINE CLEAN CATCH COLOR YELLOW TRANSPARENCY CLEAR Specific [place] (U) 1.021 1.001 - 1.030 U PH 6.0 5.0 - 9.0 LEUKOCYTE ESTERASE NEGATIVE NEGATIVE NITRITES NEGATIVE NEGATIVE PROTEIN, URINE NEGATIVE <30 MG/DL URINE GLUCOSE NEGATIVE NEGATIVE MG/DL U KETONES TRACE (A) NEGATIVE MG/DL UROBILINOGEN NEGATIVE NEGATIVE MG/DL Urine Bilirubin NEGATIVE NEGATIVE MG/DL BLOOD NEGATIVE NEGATIVE CULTURE & SENSITIVITY INDICATED? CULTURE IS NOT INDICATED SQUAMOUS EPITHELIALS MODERATE /LPF MUCUS RARE /LPF WBC/HPF 2 <6 /HPF RBC/HPF 2 <6 /HPF BACTERIA (URINE) RARE (A) NONE /HPF POCT glucose Result Value Ref Range GLUCOSE POC 83 70 - 99 mg/dL INFLUENZA A & B Result Value Ref Range Specimen Type NASAL INFLUENZA A NEGATIVE NEGATIVE INFLUENZA B NEGATIVE NEGATIVE IMAGING STUDIES CT HEAD WO CON Final Result by User, [id number] (03/17 2032) EXAMINATION: CT OF THE BRAIN WITHOUT CONTRAST COMPARISON: None Available. EXAM HISTORY: Dizziness. Headache. Upper back and neck pain.. TECHNIQUE: Axial images were obtained through the cerebral hemispheres and posterior fossa without contrast. FINDINGS: Ventricles, sulci and extra-axial/subarachnoid spaces are normal in size and configuration. Normal parenchymal density with preservation of anderson-white matter differentiation. No definite CT evidence to suggest acute territorial infarction. No intracranial mass-effect, midline shift or edema. No intracranial hemorrhage or abnormal extra-axial fluid collections. Posterior fossa structures are unremarkable. No calvarial fracture. Visualized mastoid air cells, paranasal sinuses, and orbits are grossly unremarkable. IMPRESSION: 1. No definite CT evidence of acute intracranial abnormality. A radiation dose lowering technique was used for this procedure, which may include, but is not limited to, dose reduction technique, automated exposure control, the use of iterative reconstruction, ALARA (As Low As Reasonably Achievable) techniques, and Image Gently techniques. Interpreted By: Kathryn Cotton MD, 03/17/2019 8:31 PM XR CHEST PA+LAT Final Result by User, [id number] (03/17 2031) EXAMINATION: CHEST X-RAY TWO VIEWS EXAM TIME: 1953 hours. COMPARISON: None available HISTORY: Headache and right back pain for 2 weeks. FINDINGS: PA and lateral views of the chest are submitted for evaluation. The heart is within normal limits in size. Pulmonary vascularity is within normal limits. The lungs are well expanded without focal airspace consolidation. No pleural effusions. No pneumothorax. IMPRESSION: No acute cardiopulmonary process. Interpreted By: Kathryn Cotton MD, 03/17/2019 8:30 PM ED Course / Medical Decision Making MDM Number of Diagnoses or Management Options Myalgia: minor Nonintractable headache, unspecified chronicity pattern, unspecified headache type: minor Diagnosis management comments: Patient is into the emergency department with multiple complaints including headache, myalgias, back discomfort, chills, night sweats over the past week. He has no fever in the ED. Other than elevated blood pressure, the rest of his vitals are stable. His exam is largely nonfocal. He has no signs of meningismus. His lungs are clear. His abdomen is nontender throughout examination. EKG showed sinus rhythm with left axis deviation. Troponin was negative. D-dimer hadinitially been ordered in triage which was negative. No need to further work-up for dissection or PE as patient does not fit clinical picture at this time. Influenza screen negative. Urinalysis without evidence of UTI. Chest x-ray negative for signs of pneumonia. Patient does have leukocytosis of 15.9. Lactic acid was elevated 2.4, however the patient does not have any obvious source of infectionat this time. Suspect that this may be secondary to dehydration rather than sepsis. Patient received 1 L IV fluids and reports significant provement in his symptoms. He has no further meningeal signs on repeat examination. At this time I suspect that patient's symptoms are likely due to a viral syndrome and underlying dehydration. Cultures were sent and will call patient back if there are any concerning findings on these. Instructed patient to continue adequate p.o. hydration and take Tylenol Motrin as needed for fever. If his symptoms were to acutely worsen he should return to the emergency department, otherwise he should follow-up with his primary care provider Clara Stanley on Thursday asscheduled. Amount and/or Complexity of Data Reviewed Clinical lab tests: ordered and reviewed Tests in the radiology section of CPT??: ordered and reviewed Risk of Complications, Morbidity, and/or Mortality Presenting problems: low Management options: low Patient Progress Patient progress: improved Clinical Impression Nonintractable headache, unspecified chronicity pattern, unspecified headache type (Primary) Myalgia Disposition: Discharge Leslie Dodson MD 03/17/19 674 CURRENT INSPECTOR * KALPANA Cain - 03/17/2019 7:07 PM CST [place], [place] EMERGENCY DEPARTMENT ENCOUNTER Medical Screening Examination 03/17/19 7:07 PM Chief Complaint : No chief complaint on file. HPI : Mp Kulkarni is a 53-year-old male who presents with multiple symptoms. Pt states for the last week he has had upper back and neck pain, keeping him up at night. He also has been having night sweats. +WARD. Pt denies cp or sob. Pt states that today he developed vertigo - worse with head movement. Vital Signs: Filed Vitals: 03/17/19 1810 BP: (!) 191/91 Pulse: 72 Resp: 16 Temp: 97.7 ??F (36.5 ??C) SpO2: 98% Weight: (!) 169.6 kg (374 lb) Height: 6' 3 (1.905 m) Physical exam: A brief physical exam was completed to facilitate/expedite patient care. Fernandez findings include: eye: left sided nystagmus Plan: Labs & Imaging was ordered to facilitate patient care. KALPANA Cain 03/17/19 0149 Cosigned by Leslie Dodson MD at 03/17/2019 11:47 PM EDDY CURRENT INSPECTOR CURRENT INSPECTOR CURRENT INSPECTOR Associated attestation - Leslie Dodson MD - 03/17/2019 11:47 PM EDDY CURRENT INSPECTOR I, LESLIE DODSON MD, reviewed the LUNA's note and agree with the findings and plan of care, except as I have documented. * Iveth Schwartz RN - 03/17/2019 6:14 PM CST Pt reports severe headache and right back pain x 2 weeks, now developed dizziness, nausea, and extreme thirst in the past 24 hours. Denies CP or SOB at rest, states increased SOB with exertion. Family hx of heart disease, denies personal cardiac hx. CURRENT INSPECTOR documented in this encounter Plan of Treatment Upcoming Encounters Date Type Department Care Team (Late st Contact Info) Description 03/28/2024 7:30 AM EDDY CURRENT INSPECTOR Hospital Encounter [facility] [place] [address] Antwan Stone DPM [address], [place] [address] 03/28/2024 7:30 AM EDDY CURRENT INSPECTOR Anesthesia [place] [address] Shanelle Avila, ONCOLOGY SOCIAL WORKER [place] [address] 03/28/2024 7:30 AM EDDY CURRENT INSPECTOR - 03/28/2024 8:48 AM EDDY CURRENT INSPECTOR [place] [address] Antwan Stone DPM [address], [place] [address] REMOVAL OF HARDWARE LEFT FOOT 04/05/2024 8:30 AM EDDY CURRENT INSPECTOR Office Visit [place] Fara-Omar'Marbella fleming [facility], [address] [place] [address] Dominick Mccloud MD [facility]. [address] [place] [address] Scheduled Procedures Name Priority Associated Diagnoses Date/Ti me REMOVAL PLATE SCREW OR PIN SCHED BY FAX 02/08/24 [facility] PHONE ASSESS 03/28/2024 7:30 AM EDDY CURRENT INSPECTOR documented as of this encounter Procedures Procedure Name Priority Date/Time Associated Diagnosis Comments URINALYSIS WI REFLEX TO CULTURE STAT 03/17/2019 10:23 PM EDDY CURRENT INSPECTOR INFLUENZA A & B STAT 03/17/2019 8:18 PM EDDY CURRENT INSPECTOR LACTIC ACID TIMED 03/17/2019 8:18 PM EDDY CURRENT INSPECTOR XR CHEST PA+LAT STAT 03/17/2019 7:55 PM EDDY CURRENT INSPECTOR ECG 12-LEAD STAT 03/17/2019 7:49 PM EDDY CURRENT INSPECTOR CT HEAD WO CON STAT 03/17/2019 7:26 PM EDDY CURRENT INSPECTOR COMPREHENSIVE METABOLIC PANEL STAT 03/17/2019 7:17 PM EDDY CURRENT INSPECTOR D-DIMER, QUANTITATIVE STAT 03/17/2019 7:17 PM EDDY CURRENT INSPECTOR CBC W/DIFF AUTOMATED STAT 03/17/2019 7:17 PM EDDY CURRENT INSPECTOR TROPONIN, QUANT STAT 03/17/2019 7:17 PM EDDY CURRENT INSPECTOR POCT GLUCOSE - WILKINSON DOCKED DEVICE Routine 03/17/2019 6:14 PM EDDY CURRENT INSPECTOR documented in this encounter Results * (ABNORMAL) URINALYSIS WI REFLEX TO CULTURE (03/17/2019 10:23 PM [facility]) SPECIMEN TYPE URINE CLEAN CATCH 03/17/2019 10:05 PM [facility] COLOR (U) YELLOW 03/17/2019 10:54 PM [facility] TRANSPARENCY CLEAR 03/17/2019 10:54 PM [facility] SPECIFIC GRAVITY (U) 1.021 1.001 - 1.030 03/17/2019 10:54 PM [facility] U PH 6.0 5.0 - 9.0 03/17/2019 10:54 PM [facility] LEUKOCYTES (U) NEGATIVE NEGATIVE 03/17/2019 10:54 PM [facility] NITRITES NEGATIVE NEGATIVE 03/17/2019 10:54 PM [facility] PROTEIN (U) NEGATIVE <30 MG/DL 03/17/2019 10:54 PM [facility] URINE GLUCOSE NEGATIVE NEGATIVE MG/DL 03/17/2019 10:54 PM [facility] KETONES MG/DL (U) TRACE(A) NEGATIVE MG/DL 03/17/2019 10:54 PM [facility] UROBILINOGEN NEGATIVE NEGATIVE MG/DL 03/17/2019 10:54 PM [facility] BILIRUBIN (U) NEGATIVE NEGATIVE MG/DL 03/17/2019 10:54 PM [facility] BLOOD (U) NEGATIVE NEGATIVE 03/17/2019 10:54 PM [facility] CULTURE & SENSITIVITY INDICATED? CULTURE IS NOT INDICATED 03/17/2019 10:54 PM [facility] SQUAMOUS EPITHELIALS MODERATE /LPF 03/17/2019 10:54 PM [facility] MUCUS RARE /LPF 03/17/2019 10:54 PM [facility] WBC/HPF 2 <6 /HPF 03/17/2019 10:54 PM EDDY CURRENT INSPECTOR [facility] RBC/HPF 2 <6 /HPF 03/17/2019 10:54 PM EDDY CURRENT INSPECTOR [facility] BACTERIA (U) RARE(A) NONE /HPF 03/17/2019 10:54 PM EDDY CURRENT INSPECTOR [facility] URINE SPECIMEN OBTAINED BY CLEAN CATCH PROCEDURE / Unknown 03/17/2019 10:23 PM EDDY CURRENT INSPECTOR Monica ACUNA URINE ORDERABLES Final Res ult Performing Organization Address City/[facility]/ZIP Co de Phone Number [facility] [address] [place] [address], [place] [phone] * (ABNORMAL) LACTIC ACID (03/17/2019 8:18 PM EDDY CURRENT INSPECTOR) LACTIC ACID VENOUS 2.4(H) 0.4 - 2.0 MMOL/L 03/17/2019 9:06 PM EDDY CURRENT INSPECTOR [facility] Comment:EAB CALLED CRITICAL RESULTS AT 17Mar2019 TO AND READ BACK BY MYNOR Wong 03/17/2019 8:18 PM EDDY CURRENT INSPECTOR Monica ACUNA LABORATORY Final Resu lt [facility] [address] [place] [address], [place] [phone] * INFLUENZA A & B (03/17/2019 8:18 PM EDDY CURRENT INSPECTOR) SPECIMEN TYPE NASAL 03/17/2019 8:26 PM EDDY CURRENT INSPECTOR [facility] INFLUENZA A NEGATIVE NEGATIVE 03/17/2019 8:44 PM EDDY CURRENT INSPECTOR [facility] INFLUENZA B NEGATIVE NEGATIVE 03/17/2019 8:44 PM EDDY CURRENT INSPECTOR [facility] Comment: Interpretation: Negative for Influenza A and B. A negative result does not exclude influenza virus infection. If influenza is circulating in your community, a diagnosis of influenza should be considered based on a patient's clinical presentation and empiric antiviral treatment should be considered, if indicated. If more conclusive testing is needed for hospitalized inpatients, follow-up confirmatory testing with RT-PCR requires a separate order. NASOPHARYNGEAL SWAB / Unknown 03/17/2019 8:18 PM EDDY CURRENT INSPECTOR Monica ACUNA MICROBIOLOGY - GENERAL ORD ERABLES Final Result [facility] [address] [place] [address], * XR CHEST PA+LAT (03/17/2019 7:55 PM EDDY CURRENT INSPECTOR) Anatomical Region Laterality Modality Chest Radiographic Trang ging 03/17/2019 8:30 PM EDDY CURRENT INSPECTOR Impressions 03/17/2019 8:31 PM EDDY CURRENT INSPECTOR IMPRESSION: No acute cardiopulmonary process. Interpreted By: Kathryn Cotton MD, 03/17/2019 8:30 PM Narrative 03/17/2019 8:31 PM EDDY CURRENT INSPECTOR EXAMINATION: CHEST X-RAY TWO VIEWS EXAM TIME: 1952 hours. COMPARISON: None available HISTORY: Headache and right back pain for 2 weeks. FINDINGS: PA and lateral views of the chest are submitted for evaluation. The heart is within normal limits in size. Pulmonary vascularity is within normal limits. The lungs are well expanded without focal airspace consolidation. No pleural effusions. No pneumothorax. Procedure Note Vane Cotton MD - 03/17/2019 EXAMINATION: CHEST X-RAY TWO VIEWS EXAM TIME: 1952 hours. COMPARISON: None available HISTORY: Headache and right back pain for 2 weeks. FINDINGS: PA and lateral views of the chest are submitted for evaluation. The heartis within normal limits in size. Pulmonary vascularity is within normallimits. The lungs are well expanded without focal airspace consolidation.No pleural effusions. No pneumothorax. IMPRESSION: No acute cardiopulmonary process. Interpreted By: Kathryn Cotton MD, 03/17/2019 8:30 PM us Monica ACUNA GENERAL IMAGING Final Resu lt * ECG 12 lead (03/17/2019 7:49 PM EDDY CURRENT INSPECTOR) 03/17/2019 7:49 PM EDDY CURRENT INSPECTOR Narrative [facility] - 03/17/2019 8:34 PM EDDY CURRENT INSPECTOR ?[place]`gloria Altman ? [address] [place] ? Test Date: ?2019-03-17 Pat Name: ? MP KULKARNI ?Department: ? Room: ? EXAM14 Gender: ? Male ? Coal Hiker: ?? [place] : ?1965 ? Requested By: MONICA TURNER Order Number: [id number] ? Nicholas KIM: ?? Lamont Hall ? Measurements Intervals ?[place] ? Rate: ? 87 ? P: ?41 WV: ? 205 ?QRS: ?-37 QRSD: ? 97 ? T: ?22 QT: ? 375 ? QTc: ?454 ? Interpretive Statements SINUS RHYTHM MARKED LEFT AXIS DEVIATION INCOMPLETE RIGHT BUNDLE BRANCH BLOCK Compared to ECG 06/28/2018 14:37:35 Left-axis deviation now present CURRENT INSPECTOR Procedure Note Lamont Hall MD - 03/17/[address] [facility] [place] [address] [facility] Test Date: 2019-03-17 Pat Name: MP KULKARNI Department: [facility]: [facility] Gender: Male [place]iker: [place] : 1965 Requested By: MONICA TURNER Order Number: [id number] Reading MD: Lamont Hall Measurements Intervals [place] Rate: 87 P: 41 WV: 205 QRS: -37 QRSD: 97 T: 22 QT: 375 QTc: 454 Interpretive Statements SINUS RHYTHM MARKED LEFT AXIS DEVIATION INCOMPLETE RIGHT BUNDLE BRANCH BLOCK Compared to ECG 06/28/2018 14:37:35 Left-axis deviation now present CURRENT INSPECTOR us Monica ACUNA ECG ORDERABLES Final Resu lt [facility] * CT HEAD WO CON (03/17/2019 7:26 PM EDDY CURRENT INSPECTOR) Anatomical Region Laterality Modality Head Computed Tomogra phy 03/17/2019 8:31 PM EDDY CURRENT INSPECTOR Impressions 03/17/2019 8:32 PM EDDY CURRENT INSPECTOR IMPRESSION: 1. No definite CT evidence of acute intracranial abnormality. A radiation dose lowering technique was used for this procedure, which may include, but is not limited to, dose reduction technique, automated exposure control, the use of iterative reconstruction, ALARA (As Low As Reasonably Achievable) techniques, and Image Gently techniques. Interpreted By: Kathryn Cotton MD, 03/17/2019 8:31 PM Narrative 03/17/2019 8:32 PM EDDY CURRENT INSPECTOR EXAMINATION: CT OF THE BRAIN WITHOUT CONTRAST COMPARISON: None Available. EXAM HISTORY: Dizziness. ??Headache. ??Upper back and neck pain.. TECHNIQUE: Axial images were obtained through the cerebral hemispheres and posterior fossa without contrast. FINDINGS: Ventricles, sulci and extra-axial/subarachnoid spaces are normal in size and configuration. Normal parenchymal density with preservation of anderson-white matter differentiation. No definite CT evidence to suggest acute territorial infarction. No intracranial mass-effect, midline shift or edema. No intracranial hemorrhage or abnormal extra-axial fluid collections. Posterior fossa structures are unremarkable. No calvarial fracture. Visualized mastoid air cells, paranasal sinuses, and orbits are grossly unremarkable. ?? Procedure Note Vane Cotton MD - 03/17/2019 EXAMINATION: CT OF THE BRAIN WITHOUT CONTRAST COMPARISON: None Available. EXAM HISTORY: Dizziness. Headache. Upper back and neck pain.. TECHNIQUE: Axial images were obtained through the cerebral hemispheres and posteriorfossa without contrast. FINDINGS: Ventricles, sulci and extra-axial/subarachnoid spaces are normal in sizeand configuration. Normal parenchymal density with preservation of anderson-white matterdifferentiation. No definite CT evidence to suggest acute territorial infarction. No intracranial mass-effect, midline shift or edema. No intracranial hemorrhage or abnormal extra-axial fluid collections. Posterior fossa structures are unremarkable. No calvarial fracture. Visualized mastoid air cells, paranasal sinuses, and orbits are grosslyunremarkable. IMPRESSION: 1. No definite CT evidence of acute intracranial abnormality. A radiation dose lowering technique was used for this procedure, which mayinclude, but is not limited to, dose reduction technique, automatedexposure control, the use of iterative reconstruction, ALARA (As Low AsReasonably Achievable) techniques, and Image Gently techniques. Interpreted By: Kathryn Cotton MD, 03/17/2019 8:[address] Final Resu lt * TROPONIN, QUANT (03/17/2019 7:17 PM EDDY CURRENT INSPECTOR) TROPONIN I <0.015 <0.045 ng/mL. 03/17/2019 7:57 PM EDDY CURRENT INSPECTOR [facility] Comment: HIGH DOSES OF BIOTIN MAY INTERFERE WITH THIS TEST RESULT. CORRELATION TO CLINICAL HISTORY AND PRESENTATION RECOMMENDED. 03/17/2019 7:17 PM EDDY CURRENT INSPECTOR [facility] Final Resu lt [facility] [address] [place] [address], [place] [phone] * D-DIMER, QUANTITATIVE (03/17/2019 7:17 PM EDDY CURRENT INSPECTOR) D-DIMER <150 0 - 230 D DU ng/mL 03/17/2019 7:56 PM EDDY CURRENT INSPECTOR [facility] Comment: TESTING PERFORMED ON [place] ACL TOP 300 ANALYZER. NOTE: RESULTS OF THIS TEST SHOULD ALWAYS BE INTERPRETED IN CONJUNCTION WITH THE PATIENT'S MEDICAL HISTORY, CLINICAL PRESENTATION AND OTHER FINDINGS. CLINICAL DIAGNOSIS SHOULD NOT BE BASED ON THE RESULT OF D-DIMER ALONE. THE MEASUREMENT OF D-DIMER SHOULD NOT BE USED AN AID IN THE DIAGNOSIS OF VTE IN PATIENTS WITH: THERAPEUTIC DOSE ANTICOAGULANT THERAPY FOR >24HRS, FIBRINOLYTIC THERAPY WITHIN PREVIOUS 7 DAYS, TRAUMA OR SURGERY WITHIN PREVIOUS 4 WEEKS, DISSEMINATED MALIGNANCIES, AORTIC ANEURYSM, SEPSIS, SEVERE INFECTIONS, PNEUMONIA, SEVERE SKIN INFECTIONS, LIVER CIRRHOSIS OR . 03/17/2019 7:17 PM EDDY CURRENT INSPECTOR us [facility] Final Resu lt [facility] [address] [place] [address], * (ABNORMAL) COMPREHENSIVE METABOLIC PANEL (03/17/2019 7:17 PM EDDY CURRENT INSPECTOR) Pathologist [facility] GLUCOSE 107(H) 70 - 99 MG/DL 03/17/2019 7:57 PM EDDY CURRENT INSPECTOR [facility] BUN 15 7 - 18 MG/DL 03/17/2019 7:57 PM EDDY CURRENT INSPECTOR [facility] CREATININE S/P/B 0.80 0.7 - 1.3 MG/DL 03/17/2019 7:57 PM EDDY CURRENT INSPECTOR [facility] SODIUM S/P/B 135(L) 136 - 145 MMOL/L 03/17/2019 7:57 PM EDDY CURRENT INSPECTOR [facility] POTASSIUM S/P/B 4.1 3.5 - 5.1 MMOL/L 03/17/2019 7:57 PM EDDY CURRENT INSPECTOR [facility] CHLORIDE S/P/B 103 100 - 108 MMOL/L 03/17/2019 7:57 PM EDDY CURRENT INSPECTOR [facility] CO2 24.6 21 - 32 MMOL/L 03/17/2019 7:57 PM [facility] CALCIUM S/P/B 9.3 8.5 - 10.1 MG/DL 03/17/2019 7:57 PM [facility] BILIRUBIN TOTAL S/P/B 0.5 0.2 - 1.2 MG/DL 03/17/2019 7:57 PM [facility] TOTAL PROTEIN S/P/B 8.4(H) 6.4 - 8.2 G/DL 03/17/2019 7:57 PM [facility] ALBUMIN S/P/B 4.1 3.4 - 5.0 G/DL 03/17/2019 7:57 PM [facility] AST 22 15 - 37 U/L 03/17/2019 7:57 PM [facility] ALT 33 16 - 60 U/L 03/17/2019 7:57 PM [facility] ALKALINE PHOSPHATASE S/P/B 91 50 - 136 U/L 03/17/2019 7:57 PM [facility] ANION GAP 7.4 5 - 15 MMOL/L 03/17/2019 7:57 PM [facility] BUN CREATININE RATIO 18.8 6 - 26 03/17/2019 7:57 PM [facility] A/G RATIO 1.0 1.0 - 2.0 RATIO 03/17/2019 7:57 PM [facility] EGFR NON-AFR. AMER. >90 >90 ML/MIN/1.7 3 M2 03/17/2019 7:57 PM [facility] EGFR AFR. AMER. >90 >90 ML/MIN/1.7 3 M2 03/17/2019 7:57 PM [facility] Comment: NOTE: eGFR is not calculated for patients <18 years of age. This is an estimated GFR (CKD EPI) and should not be used for calculating drug doses. 03/17/2019 7:17 PM EDDY CURRENT INSPECTOR us [facility] Final Resu lt [facility] [address] [place] [address], [place] [phone] * (ABNORMAL) CBC W/DIFF AUTOMATED (03/17/2019 7:17 PM EDDY CURRENT INSPECTOR) WBC 15.9(H) 4.5 - 11.0 x10'3/uL 03/17/2019 7:35 PM EDDY CURRENT INSPECTOR [facility] RBC 5.01 4.70 - 6.10 x10'6/uL 03/17/2019 7:35 PM [facility] HGB 13.9(L) 14.0 - 18.0 G/DL 03/17/2019 7:35 PM [facility] HCT 44.1 43.0 - 54.0 % 03/17/2019 7:35 PM [facility] MCV 88.0 80.0 - 94.0 FL 03/17/2019 7:35 PM [facility] MCH 27.7 27.0 - 31.0 PG 03/17/2019 7:35 PM [facility] MCHC 31.5(L) 32.0 - 36.0 G/DL 03/17/2019 7:35 PM [facility] RDW 13.1 11.5 - 14.5 % 03/17/2019 7:35 PM [facility] PLT 285 130 - 400 x10'3/uL 03/17/2019 7:35 PM [facility] MPV 11.6 9.3 - 12.2 FL 03/17/2019 7:35 PM [facility] DIFFERENTIAL TYPE AUTOMATED DIFFERENTIAL 03/17/2019 7:35 PM EDDY CURRENT INSPECTOR [facility] NEUTROPHILS % 83.7 % 03/17/2019 7:35 PM [facility] LYMPHOCYTES % 8.0 % 03/17/2019 7:35 PM [facility] MONOCYTES % 6.6 % 03/17/2019 7:35 PM [facility] EOSINOPHILS 0.6 % 03/17/2019 7:35 PM [facility] BASOPHILS 0.5 % 03/17/2019 7:35 PM [facility] IMMATURE GRANS % 0.6 % 03/17/19 7:35 PM [facility] ABS. NEUTROPHILS TOTAL 13.30(H) 1.80 - 7.70 x10'3/uL 03/17/2019 7:35 PM [facility] ABS. LYMPHOCYTES 1.27 1.00 - 4.80 x10'3/uL 03/17/2019 7:35 PM [facility] ABS. MONOCYTES 1.05(H) 0.30 - 0.82 x10'3/uL 03/17/2019 7:35 PM [facility] ABS. EOSINOPHILS 0.09 0.04 - 0.54 x10'3/uL 03/17/2019 7:35 PM [facility] ABS. BASOPHILS 0.08 0.01 - 0.08 x10'3/uL 03/17/2019 7:35 PM [facility] ABS. IMMATURE GRANULOCYTES 0.10 0.00 - 0.49 x10'3/uL 03/17/2019 7:35 PM [facility] 03/17/2019 7:17 PM EDDY CURRENT INSPECTOR us [facility] Final Resu lt [facility] [address] [place] [address], * POCT glucose (03/17/2019 6:14 PM EDDY CURRENT INSPECTOR) GLUCOSE POC 83 70 - 99 mg/dL 03/17/2019 6:15 PM EDDY CURRENT INSPECTOR [facility] ORDERS INTERFACE 03/17/2019 6:14 PM EDDY CURRENT INSPECTOR us Attending Physician Emergency MD POCT ORDERABLES - DEVICE Final Result [facility] ORDERS INTERFACE US documented in this encounter Visit Diagnoses Diagnosis Nonintractable headache, unspecified chronicity pattern, unspecified headache type- Primary Myalgia Mylagia and myositis, unspecified Painful orthopaedic hardware (CMS/HCC)- Primary documented in this encounter Administered Medications Inactive Administered Medications - up to 3 most recent administrations Medication Order MAR Action Action Date Dose Rate Site ondansetron (ZOFRAN) 4 MG/2ML injection 1 dose, Starting on Priscila 03/17/19 at 1946, Until Priscila 03/17/19 at 1950, Created by cabinet override ondansetron (ZOFRAN) injection 4 mg 4 mg, Intravenous, Once, 1 dose, On Priscila 03/17/19 at 2115, IV push over 2-5 minutes. Given 03/17/2019 7:50 PM EDDY CURRENT INSPECTOR sodium chloride 0.9% bolus infusion SOLN 1,000 mL 1,000 mL, Intravenous, Administer over 15 Minutes, Bolus (Once), 1 dose, On Priscila 03/17/19 at 2115 New Bag 03/17/2019 9:20 PM EDDY CURRENT INSPECTOR 1,000 mLs documented in this encounter Active and Recently Administered Medications Times are shown in EDDY CURRENT INSPECTOR. Scheduled Medication Order 03/15/2019 03/16/2019 03/17/2019 ondansetron (ZOFRAN) injection 4 mg (COMPLETED) 4 mg, Intravenous, Once, 1 dose, On Priscila 03/17/19 at 2115, IV push over 2-5 minutes. 1950 (Given - Provid er: Milli Mcadams RN) sodium chloride 0.9% bolus infusion SOLN 1,000 mL (COMPLETED) 1,000 mL, Intravenous, Administer over 15 Minutes, Bolus (Once), 1 dose, On Priscila 03/17/19 at 2115 2119 (New Bag - Prov ider: Megan Mattson, KAMILA)[id number] (Due: Infusion Stop Time - Provider: Megan Mattson RN) documented in this encounter Care Teams Hide Inspector And Sorter Relationship Specialty Start Date End Date Clara Stanley APNP [address] [place] [id number] PCP - General NURSE PRACTITIONER 06/01/18 documented as of this encounter
--- OUTSIDE RECORDS SUMMARY | 2024-03-02 03:24 | XMS_ITS | Encounter Summary ---
Author Organization [facility] Address [address] [place] [address]. [place], [place] [address] [place] [address] Care Team Providers Care Laboratory Animal Facility Supervisor Name Role Phone Clara Stanley Primary Care Provider [phone] Reason for Visit * Reason Onset Date Comments Results 03/23/2019 Encounter Details Date Type Department Care Team (Late st Contact Info) Description 03/23/2019 Telephone [facility] Family & Internal Medicine [place] [id number] [place] [address] Clara Stanley APNP [address] [place] [address] Results Social History Tobacco Use [...] Notes * Estrellita Chi MA - 03/23/2019 9:30 AM CST informed tn [employer]ING [employer] * Estrellita Chi MA - 03/23/2019 9:30 AM CST ----- Message from ZEB Nunn sent at 03/22/2019 9:28 PM TEACHING MUSIC LESSONS ----- Let patient know his cervical spine x-ray was unremarkable. [employer] documented in this encounter Plan of Treatment Upcoming Encounters Date Type Department Care Team (Late st Contact Info) Description 03/28/2024 7:30 AM TEACHING MUSIC LESSONS Hospital Encounter [facility] [place] [address] Antwan Stone, DIEGO [address], [place] [address] 03/28/2024 7:30 AM TEACHING MUSIC LESSONS Anesthesia [place] [address] Shanelle Avila, HEARING AID FITTER [address] [place] [address] 03/28/2024 7:30 AM TEACHING MUSIC LESSONS - 03/28/2024 8:48 AM TEACHING MUSIC LESSONS Surgery [facility] [address] Antwan Stone DPM [address], [place] [address] REMOVAL OF HARDWARE LEFT FOOT 04/05/2024 8:30 AM TEACHING MUSIC LESSONS Office Visit Darren Chaudhari-O'F allon [facility], [facility] [address] [place] [address] Dominick Mccloud MD Three [facility]. [facility] [address] [place] [address] Scheduled Procedures Name Priority Associated Diagnoses Date/Ti me REMOVAL PLATE SCREW OR PIN SCHED BY FAX 02/08/24 [facility] PHONE ASSESS 03/28/2024 7:30 AM TEACHING MUSIC LESSONS documented as of this encounter Visit Diagnoses Not on filedocumented in this encounter Care Teams Laboratory Animal Facility Supervisor Relationship Specialty Start Date End Date Clara Stanley APNP [address] [place] [id number] PCP - General NURSE PRACTITIONER 06/01/18 documented as of this encounter
--- OUTSIDE RECORDS SUMMARY | 2024-03-02 03:24 | XMS_ITS | Encounter Summary ---
Author Organization [facility] Address [address] [place] [address]. [place], [place] [id number] [place] [address] Care Team Providers Care Compounder Flavorings Name Role Phone Clara Stanley Primary Care Provider [phone] Reason for Visit * Reason Comments Follow Up Encounter Details Date Type Department Care Team (Late st Contact Info) Description 08/02/2018 9:00 AM CDT Office Visit [facility] Medical Group Family & Internal Medicine [id number] [place] [address] Clara Stanley APNP [facility] [place], [place] [id number] Follow Up Social History Tobacco Use Types [...] Sign Reading Time Taken Comments Blood Pressure 135/78 08/02/2018 9:01 AM CDT Pulse 72 08/02/2018 9:01 AM CDT Temperature 36.3 ??C (97.3 ??F) 08/02/2018 9:01 AM CD T Respiratory Rate 16 08/02/2018 9:01 AM CDT Oxygen Saturation 97% 08/02/2018 9:01 AM CDT Inhaled Oxygen Concentration - - Weight 167.8 kg (370 lb) 08/02/2018 9:01 AM CDT Height 190.5 cm (6' 3 ) 08/02/2018 9:01 AM CDT Body Mass Index 46.25 08/02/2018 9:01 AM CDT documented in this encounter Progress Notes * ZEB Nunn - 08/02/2018 9:00 AM CDT Images from the original note were not included. [facility]ILY [facility]NAL [facility]ICINE OFFICE VISIT Reason for Visit: Follow Up History of Present Illness: Pt here today for BP and lab follow up. At his last visit, his amlodipine was increased to 10 mg. BP is well controlled at today's visit. He is tolerating his meds well and denies any bothersome sideeffects. He is treated for hyperlipidemia with pravastatin, which he tolerates well. With recent labs, his lipids were noted to be a little elevated with a LDL of 135. Will increase pravastain to 20 mg once daily. He recently had a colonoscopy with some bleeding afterwards. Has since followed up with Dr. Delgado whothought this was most likely a scab. Bleeding has since stopped and he has had no further problems. With colonoscopy, Dr. Delgado noticed what he thought was an irregular prostate. He did follow up with Dr. Jeffery, urology, who found no problems with his prostate. No new problems or concerns . ROS: Review of Systems Constitutional: Negative for chills, fever and malaise/fatigue. HENT: Negative for congestion and hearing loss. Eyes: Negative for blurred vision and double vision. Respiratory: Negative for cough and shortness of breath. Cardiovascular: Negative for chest pain, palpitations and leg swelling. Gastrointestinal: Negative for abdominal pain, blood in stool, constipation, diarrhea, heartburn, melena, nausea and vomiting. Skin: Negative for itching [...] file Gets together: Not on file Attends gnosticism service: Not on file Active member of [...] No respiratory distress. He has no wheezes. Abdominal: Soft. Bowel sounds are normal. He exhibits no distension and no mass. There is no tenderness. There is no rebound and no guarding. Musculoskeletal: Normal range of motion. He exhibits no edema or deformity. Neurological: He is alert and oriented to person, place, and time. Gait normal. Skin: Skin is warm and dry. No rash noted. He is not diaphoretic. No erythema. No pallor. Psychiatric: Mood and affect normal. Nursing note and vitals reviewed. Filed Vitals: 08/02/18 0901 BP: 135/78 Pulse: 72 Resp: 16 Temp: 97.3 ??F (36.3 ??C) SpO2: 97% Weight: (!) 167.8 kg (370 lb) Height: 6' 3 (1.905 m) Labs: Labs Reviewed Diagnoses/Impression: 1. Hypertension, benign amlodipine 10 MG tablet COMPREHENSIVE METABOLIC PANEL Chronic 2. Mixed hyperlipidemia pravastatin 20 MG tablet COMPREHENSIVE METABOLIC PANEL LIPID PANEL CK (CPK) Chronic 3. Morbid obesity (CMS/HCC) CBC W/DIFF AUTOMATED Chronic Recommendations and Plan: 1. Hypertension, benign - amlodipine 10 MG tablet; Take 1 tablet (10 mg total) by mouth daily. Dispense: 90 tablet; Refill:3 - COMPREHENSIVE METABOLIC PANEL; Future BP stable. Meds refilled. 2. Mixed hyperlipidemia - pravastatin 20 MG tablet; Take 1 tablet (20 mg total) by mouth nightly at bedtime. Dispense: 90 tablet; Refill: 3 - COMPREHENSIVE METABOLIC PANEL; Future - LIPID PANEL; Future - CK (CPK); Future Pravastatin increased to 20 mg. Labs ordered for recheck. 3. Morbid obesity (CMS/HCC) - CBC W/DIFF AUTOMATED; Future TLC and dietary changes conducive to weight loss discussed with pt today. Calorie count/food diary encouraged as based on BEE. Offered referral to bariatric surgery today. Pt declined at this time--as would like to try and lose weight on own. Orders Placed This Encounter ??? CBC W/DIFF AUTOMATED ??? COMPREHENSIVE METABOLIC PANEL ??? LIPID PANEL ??? CK (CPK) ??? amlodipine 10 MG tablet ??? pravastatin 20 MG tablet Cannot display discharge medications since this is not an admission. PCP: ZEB Nunn 08/02/2018 documented in this encounter Plan of Treatment Upcoming Encounters Date Type Department Care Team (Late st Contact Info) Description 03/28/2024 7:30 AM TURNTABLE ENGINEER Hospital Encounter [facility] [place] [address] Antwan Stone DPM [address] [place] [address] 03/28/2024 7:30 AM TURNTABLE ENGINEER Anesthesia Event [facility] [address] Shanelle Avila, AQUACULTURE WORKER [address] [place] [address] 03/28/2024 7:30 AM TURNTABLE ENGINEER - 03/28/2024 8:48 AM TURNTABLE ENGINEER Surgery [facility] [address] Antwan Stone DPM [address] [place] [address] REMOVAL OF HARDWARE LEFT FOOT 04/05/2024 8:30 AM TURNTABLE ENGINEER Office Visit Darren Chaudhari-O'F allon THREE [facility], [address] [address] [place] [address] Dominick Mccloud MD Three [facility]. [facility] [address] [place] [address] Scheduled Procedures Name Priority Associated Diagnoses Date/Ti me REMOVAL PLATE SCREW OR PIN SCHED BY FAX 02/08/24 [facility] PHONE ASSESS 03/28/2024 7:30 AM TURNTABLE ENGINEER documented as of this encounter Visit Diagnoses Diagnosis Hypertension, benign- Primary Essential hypertension, benign Mixed hyperlipidemia Morbid obesity (CMS/HCC HHS/HCC) Morbid obesity Painful orthopaedic hardware (CMS/HCC)- Primary documented in this encounter Care Teams Compounder Flavorings Relationship Specialty Start Date End Date Clara Stanley APNP [address] [place] [address] PCP - General NURSE PRACTITIONER 06/01/18 documented as of this encounter
--- OUTSIDE RECORDS SUMMARY | 2024-03-02 03:24 | XMS_ITS | Encounter Summary ---
Author Organization [facility] Address [address] [place] [address]. [place], [place] [address] [place] [address] Care Team Providers Care Tank Tester Name Role Phone Clara Stanley Primary Care Provider +1 [phone] Reason for Referral * Surgical (Routine) - Closed Specialty Diagnoses / Procedures Referred By Contact Referred To Contact VASCULAR SURGERY / Cardiology Diagnoses Asymptomatic varicose veins of right lower extremity Clara Stanley APNP [address] [place] [address] Phone: tel: fax: [facility] [address] Phone: tel: fax: Referral ID Status Reason Start Date Expiration Date V isits Requested Visits Authorized [id number] Closed Specialty Services 02/04/2019 03/05/2020 99 99 DER BRAKE LINING Reason for Visit * Reason Comments Follow Up from [facility] Encounter Details Date Type Department Care Team (Late st Contact Info) Description 02/04/2019 9:00 AM GRINDER BRAKE LINING Office Visit [facility] Family & Internal Medicine - [address] [address] Clara Stanley APNP [address] [place], [place] [id number] Follow Up (from [facility]) Social History Tobacco Use Types Packs/Day Years [...] Sign Reading Time Taken Comments Blood Pressure 139/75 02/04/2019 9:00 AM GRINDER BRAKE LINING Pulse 56 02/04/2019 9:00 AM GRINDER BRAKE LINING Temperature 35.8 ??C (96.5 ??F) 02/04/2019 9:00 AM CS T Respiratory Rate 18 02/04/2019 9:00 AM GRINDER BRAKE LINING Oxygen Saturation 97% 02/04/2019 9:00 AM GRINDER BRAKE LINING Inhaled Oxygen Concentration - - Weight 168.3 kg (371 lb) 02/04/2019 9:00 AM GRINDER BRAKE LINING Height 190.5 cm (6' 3 ) 02/04/2019 9:00 AM GRINDER BRAKE LINING Body Mass Index 46.37 02/04/2019 9:00 AM GRINDER BRAKE LINING documented in this encounter Progress Notes * ZEB Nunn - 02/04/2019 9:00 AM CST Images from the original note were not included. [facility] OFF[facility] VISIT Reason for Visit: Follow Up (from [facility]) History of Present Illness: Pt is here today for an Er follow up after he noticed his RLE---mcbride was bleeding. Called 911 and was taken to the ER at [facility]. Unfortunately at time of visit today---his ER records were not available. He states in the ER, no diagnostic testing was done. Bleeding stopped while in the ER. Area was dressed and he was dc'd home. In the last week---no more bleeding has occurred---but pt has kept the area covered with a dressing, just in case. He travels with his job---so is concerned because he doesn't want this to happen while on a plane. He did not injure his leg prior to the episode that he is aware of, but he strike thesame area of his leg on his trailer hitch---this occurred about 10 years ago---no problems or bleeding from this area---but he always had a purple, kind of puffy spot to the area. There has never been any problems with bleeding from this area before. He denies seeing any blood in his stool or urine and denies any WARD. He is not currently on any blood thinners including a daily ASA. He has not noticed any easy bleeding or bruising. Denies any othervaricose veins and denies any pain or swelling of his lower extremities. ROS: Review of Systems Constitutional: Negative for chills, fever and malaise/fatigue. HENT: Negative for congestion and hearing loss. Eyes: Negative for blurred vision and double vision. Respiratory: Negative for cough, shortness of breath and wheezing. Cardiovascular: Negative for chest pain, palpitations and leg swelling. Gastrointestinal: Negative for abdominal pain and vomiting. Genitourinary: Negative for dysuria and urgency. Skin: Negative for itching and rash. Neurological: [...] has no wheezes. He has no rales. Musculoskeletal: Normal range of motion. He exhibits no deformity. Neurological: He is alert and oriented to person, place, and time. Gait normal. Skin: Skin is warm and dry. No rash noted. No erythema. No pallor. There is a small scab covering a patch of palpable varicose veins at the bottom of his right lower leg. No bleeding noted. Psychiatric: Mood and affect normal. Nursing note and vitals reviewed. Filed Vitals: 02/04/19 0900 BP: 139/75 Pulse: 56 Resp: 18 Temp: 96.5 ??F (35.8 ??C) SpO2: 97% Weight: (!) 168.3 kg (371 lb) Height: 6' 3 (1.905 m) Labs: Labs Reviewed Diagnoses/Impression: 1. Asymptomatic varicose veins of right lower extremity AMB REFERRAL TO VASCULAR SURGERY Recommendations and Plan: 1. Asymptomatic varicose veins of right lower extremity - AMB REFERRAL TO VASCULAR SURGERY Vasc surg referral for further eval and maybe cautery/repair of intermittently bleeding vessel. Orders Placed This Encounter ??? Ambulatory referral to Vascular Surgery (OTHER) Cannot display discharge medications since this is not an admission. PCP: ZEB Nunn 02/04/2019 DER BRAKE LINING documented in this encounter Plan of Treatment Upcoming Encounters Date Type Department Care Team (Late st Contact Info) Description 03/28/2024 7:30 AM [facility] Hospital Encounter [facility] [place] [address] Antwan Stone DPM [address], [place] [address] 03/28/2024 7:30 AM GRINDER BRAKE LINING Anesthesia Event [place] [address] Shanelle Avila, PANTOGRAPH TRANSFERRER [address] [place] [address] 03/28/2024 7:30 AM GRINDER BRAKE LINING - 03/28/2024 8:48 AM GRINDER BRAKE LINING Surgery [facility] [place] [address] Antwan Stone DPM [address], [place] [address] REMOVAL OF HARDWARE LEFT FOOT 04/05/2024 8:30 AM GRINDER BRAKE LINING Office Visit [facility] THREE [facility], [facility] [address] [place] [address] Dominick Mccloud MD Three [facility]. [facility] [address] [place] [address] Scheduled Procedures Name Priority Associated Diagnoses Date/Ti me REMOVAL PLATE SCREW OR PIN SCHED BY FAX 02/08/24 [facility] PHONE ASSESS 03/28/2024 7:30 AM GRINDER BRAKE LINING Scheduled Referrals Name Type Priority Associated Diagnoses Orde r Schedule Ambulatory referral to Vascular Surgery (OTHER) Referral Routine Asymptomatic varicose veins of right lower extremity Ordered: 02/04/2019 documented as of this encounter Visit Diagnoses Diagnosis Asymptomatic varicose veins of right lower extremity- Primary Asymptomatic varicose veins Painful orthopaedic hardware (CMS/HCC)- Primary documented in this encounter Care Teams Tank Tester Relationship Specialty Start Date End Date Clara Stanley APNP [address] [place] [address] PCP - General NURSE PRACTITIONER 06/01/18 documented as of this encounter
--- OUTSIDE RECORDS SUMMARY | 2024-03-02 03:24 | XMS_ITS | Encounter Summary ---
Author Organization [facility] Address [address] [place] [address]. [place], [place] [address] [place] [address] Care Team Providers Care Lighthouse Keeper Name Role Phone Clara Stanley Primary Care Provider [phone] Reason for Visit * Reason Onset Date Comments Appointment Request 02/08/2019 Encounter Details Date Type Department Care Team (Late st Contact Info) Description 02/08/2019 Telephone [facility], [facility] [address] [place], [place] [address] Antwan Milton MD [facility]. [facility] [address] [place] [address] Appointment Request Social History Tobacco Use Types [...] encounter Progress Notes * Ese Hanson - 02/08/2019 2:31 PM CST The office received a referral from Clara Stanley NP to see Kwaku for varicose veins. I was unable to reach him and I left a message asking him to call the office to make an appointment. ICULUM MANAGER documented in this encounter Plan of Treatment Upcoming Encounters Date Type Department Care Team (Late st Contact Info) Description 03/28/2024 7:30 AM CURRICULUM MANAGER Hospital Encounter [facility] [address] Antwan Stone, DPÁngel [address], [place] [address] 03/28/2024 7:30 AM CURRICULUM MANAGER Anesthesia [place] [address] Shanelle Avila, PARI MUTUEL TICKET SELLER [address] [place] [address] 03/28/2024 7:30 AM CURRICULUM MANAGER - 03/28/2024 8:48 AM CURRICULUM MANAGER [place] [address] Antwan Stone, DIEGO [address], [place] [address] REMOVAL OF HARDWARE LEFT FOOT 04/05/2024 8:30 AM CURRICULUM MANAGER Office Visit Darren Chaudhari-O'F allon THREE [facility], [facility] [address] [place], [place] [address] Dominick Mccloud MD Three [facility]. [facility] [address] [place] [address] Scheduled Procedures Name Priority Associated Diagnoses Date/Ti me REMOVAL PLATE SCREW OR PIN SCHED BY FAX 02/08/24 [facility] PHONE ASSESS 03/28/2024 7:30 AM CURRICULUM MANAGER documented as of this encounter Visit Diagnoses Not on filedocumented in this encounter Care Teams Lighthouse Keeper Relationship Specialty Start Date End Date Clara Stanley APNP [address] [place] [address] PCP - General NURSE PRACTITIONER 06/01/18 documented as of this encounter
--- OUTSIDE RECORDS SUMMARY | 2024-03-02 03:24 | XMS_ITS | Encounter Summary ---
Author Organization [facility] Address [address] [place] [address]. [place], [place] [address] [place] [address] Care Team Providers Care White Metal Caster Name Role Phone Clara Stanley Primary Care Provider [phone] Reason for Visit * Reason Comments Cough Has cough and rib pa in. States he does not know but maybe his ribs hurt from coughing. Sometimes feels congested. Encounter Details Date Type Department Care Team (Late st Contact Info) Description 09/20/2018 11:40 AM CDT Office Visit [facility] Family and Sports Medicine - [address] [address] Judy Charles, DO Cough (Has cough and rib pain. States he does not know but maybe his ribs hurt from coughing. Sometimes feels congested. ) Social History Tobacco Use Types Packs/Day [...] Sign Reading Time Taken Comments Blood Pressure 144/80 09/20/2018 12:11 PM CDT Pulse 75 09/20/2018 12:11 PM CDT Temperature 36.6 ??C (97.8 ??F) 09/20/2018 12:11 PM C DT Respiratory Rate - - Oxygen Saturation 98% 09/20/2018 12:11 PM CDT Inhaled Oxygen Concentration - - Weight 167.8 kg (370 lb) 09/20/2018 12:11 PM CDT Height - - Body Mass Index 46.25 08/02/2018 9:01 AM CDT documented in this encounter Progress Notes * Judy Charles, DO - 09/20/2018 11:40 AM CDT Images from the original note were not included. OFFICE ACUTE VISIT Encounter Date: 09/20/2018 Chief Complaint: 53-year-old male presents for Cough (Has cough and rib pain. States he does not know but maybe his ribs hurt from coughing. Sometimes feels congested. ) HPI About 2 weeks ago developed a cough. Lots of mucus. Now less intense coughing for the past week butthroat tickle and light cough all the time. Worse after eating. Substernal nausea feeling. R ant chest through to back constant pain. Not pleuritic. Increased SOB with activity. Congested voice at onset. Will alternate voice sounds currently--sometimes sounds normal and sometimes sounds like has a cold. No fever. When supine will feel rattly mucus in center chest that clears with a cough. No bad taste in mouth. No GERD sx. Tried some gas X and OTC cough meds w/o much change. ROS See HPI Patient Active Problem List Diagnosis ??? Caffeine use ??? Encounter for preventive health examination ??? Depression with anxiety ??? Dry skin dermatitis ??? Hypertension, benign ??? Insomnia ??? Obesity ??? Hyperlipidemia ??? Morbid obesity (CMS/HCC) ??? Essential hypertension Past Medical History: Diagnosis Date ??? Depression with anxiety 12/12/2014 ??? Dry skin dermatitis 01/05/2014 ??? Hyperlipidemia 02/21/2015 ??? Hypertension, benign 01/15/2017 ??? Morbid obesity (CMS/HCC) 02/21/2015 ??? Other and unspecified hyperlipidemia 01/06/2014 Past Surgical History: Procedure Laterality Date ??? APPENDECTOMY Family History Problem Relation Name Age of [...] file Gets together: Not on file Attends christianity service: Not on file Active member of [...] Social History Narrative ??? Not on file Current Outpatient Medications on File Prior to Visit Medication Sig Dispense Refill ??? amlodipine 10 MG tablet Take 1 tablet (10 mg total) by mouth daily. 90 tablet 3 ??? cetirizine (ZYRTEC ALLERGY) 10 MG tablet ??? Magnesium 100 MG Tab Take by mouth daily. ??? pravastatin 20 MG tablet Take 1 tablet (20 mg total) by mouth nightly at bedtime. 90 tablet 3 No current facility-administered medications on file prior to visit. No Known Allergies Objective: Filed Vitals: 09/20/18 1211 BP: 144/80 Pulse: 75 Temp: 97.8 ??F (36.6 ??C) SpO2: 98% Weight: (!) 167.8 kg (370 lb) Physical Exam General Appearance : Well developed and well- nourished, NAD Eyes: clear conjunctiva. Ears: TM clear and flat bilaterally. Nose : nose clear. Mouth: Oropharynx clear with MMM. Throat: pharynx and tonsils normal. Neck : no lymphadenopathy. Heart : RRR, no murmurs. Lungs : clear to auscultation bilaterally, no wheezing, rhonchi, or rales. breathing effort normal. No pain with palpation over cc jxns. No rash on chest. Procedure: Procedures Labs: Assessment/Plan: Encounter Diagnose(s) ICD-10-CM ICD-9-CM SNOMED CT(R) 1. Cough R05 786.2 COUGH benzonatate (TESSALON PERLES) 100 MG capsule Discussion/Summary: This sounds like a post URI (bronchitis) cough. Advised to gargle with salt water and can trial cough meds. If not improving in a few weeks, needs re eval. JUDY CHARLES DO documented in this encounter Plan of Treatment Upcoming Encounters Date Type Department Care Team (Late st Contact Info) Description 03/28/2024 7:30 AM [facility] Hospital Encounter [facility] [place] [address] Antwan Stone, DPÁngel [address], [place] [address] 03/28/2024 7:30 AM [facility] Anesthesia Event [place] [address] Shanelle Avila, SOCK FOLDER [address] [place] [address] 03/28/2024 7:30 AM GUN CLUB MANAGER - 03/28/2024 8:48 AM [facility] Surgery [facility] [place] [address] Antwan Stone DPM [address], [place] [address] REMOVAL OF HARDWARE LEFT FOOT 04/05/2024 8:30 AM GUN CLUB MANAGER Office Visit Darren Hernandez'Marbella fleming THREE [facility], [facility] [address] [place] [address] Dominick Mccloud MD Three [facility]. [facility] [address] [place] [address] Scheduled Procedures Name Priority Associated Diagnoses Date/Ti me REMOVAL PLATE SCREW OR PIN SCHED BY FAX 02/08/24 KAYLIE PHONE ASSESS 03/28/2024 7:30 AM GUN CLUB MANAGER documented as of this encounter Visit Diagnoses Diagnosis Cough- Primary Painful orthopaedic hardware (CMS/HCC)- Primary documented in this encounter Care Teams White Metal Caster Relationship Specialty Start Date End Date Clara Stanley APNP [address] [place] [address] PCP - General NURSE PRACTITIONER 06/01/18 documented as of this encounter
--- OUTSIDE RECORDS SUMMARY | 2024-03-02 03:24 | XMS_ITS | Encounter Summary ---
Author Organization [facility] Address [address] [place] [address]. [place], [place] [address] [place] [address] Care Team Providers Care Investigator Utility Bill Complaints Name Role Phone Clara Stanley Ricardo CARRINGTON Primary Care Provider [phone] Reason for Visit * Reason Comments Lab (SCAN) Encounter Details Date Type Department Care Team (Latest Contact Info) Description 07/06/2018 Scan HEALTH INFO SRVCS Scanned, Documents Lab [...] st Contact Info) Description 03/28/2024 7:30 AM SENIOR MAINFRAME PROGRAMMER ANALYST Hospital Encounter [facility] [place] [address] Antwan Stone DPM [address], [place] [address] 03/28/2024 7:30 AM SENIOR MAINFRAME PROGRAMMER ANALYST Anesthesia Event [facility] [place] [address] Shanelle Avila, MEDICAL STENOGRAPHER [address] [place] [address] 03/28/2024 7:30 AM SENIOR MAINFRAME PROGRAMMER ANALYST - 03/28/2024 8:48 AM SENIOR MAINFRAME PROGRAMMER ANALYST Surgery [facility] [place] [address] Antwan Stone, DPM [address], [place] [address] REMOVAL OF HARDWARE LEFT FOOT 04/05/2024 8:30 AM SENIOR MAINFRAME PROGRAMMER ANALYST Office Visit Darren Chaudhari-O'F allon THREE [facility], [facility] [address] [place], [place] [address] Dominick Mccloud MD Three [facility]. [facility] [address] [place] [address] Scheduled Procedures Name Priority Associated Diagnoses Date/Ti me REMOVAL PLATE SCREW OR PIN SCHED BY FAX 02/08/24 [facility] PHONE ASSESS 03/28/2024 7:30 AM SENIOR MAINFRAME PROGRAMMER ANALYST documented as of this encounter Procedures Procedure Name Priority Date/Time Associated Diagnosis Comments OUTSIDE LAB (SCAN ORDER) Routine 07/06/2018 documented in this encounter Results * OUTSIDE LAB (07/06/2018) 07/06/2018 us Documents Scanned SCANNING Final Result documented in this encounter Visit Diagnoses Not on filedocumented in this encounter Care Teams Investigator Utility Bill Complaints Relationship Specialty Start Date End Date Clara Stanley APNP [address] [place] [address] PCP - General NURSE PRACTITIONER 06/01/18 documented as of this encounter
--- OUTSIDE RECORDS SUMMARY | 2024-03-02 03:24 | XMS_ITS | Encounter Summary ---
Author Organization [facility] Address [address] [place] [address]. [place], [place] [address] [place] [address] Care Team Providers Care Sack Maker Name Role Phone Clara Stanley Primary Care Provider [phone] Encounter Details Date Type Department Care Team (Late st Contact Info) Description 07/05/2018 [facility] Documentation [facility] Family Medicine - [place] [address] [place] [address] Slava Perkins DO [address] [address] Social History Tobacco Use Types Packs/Day Years [...] as of this encounter Progress Notes * Slava Perkins DO - 07/05/2018 10:11 PM CDT call center nurse, doc halo with dr Delgado who recommended that if bleeding persists, go to ER, otherwise can call office in am. Spoke to pt who said no more bleeding and pt feels fine, but if it happens again, she will take him to ER as discussed * Slava Perkins DO - 07/05/2018 9:44 PM CDT call center nurse called Pt had c-scope 5 days ago. Was feeling fine since then. However,earlier today he has 1 episode of BRBPR, had another bm after that and was normal with no blood. And feels completely fine and normal otherwise, and reports no pain or fatigue or any other symptom. Advised since he feels fine, and no more BRBPR, can call PCM or GI in am for further instructions and follow up. If anything changes such as pain or fat igue, or if bleeding recurs, go to ER documented in this encounter Plan of Treatment Upcoming Encounters Date Type Department Care Team (Late st Contact Info) Description 03/28/2024 7:30 AM [facility] Hospital Encounter [facility] [place] [address] Antwan Stone DPM [address], [place] [address] 03/28/2024 7:30 AM FIRE CONTROLMAN Anesthesia Event [facility] [place] [address] Shanelle Avila, LUMBER KILN OPERATOR [address] [place] [address] 03/28/2024 7:30 AM FIRE CONTROLMAN - 03/28/2024 8:48 AM FIRE CONTROLMAN Surgery [facility] [place] [address] Antwan Stone DPM [address], [place] [address] REMOVAL OF HARDWARE LEFT FOOT 04/05/2024 8:30 AM FIRE CONTROLMAN Office Visit [facility] lonnie THREE [facility], [facility] [address] [place] [address] Dominick Mccloud MD Three [facility]. [facility] [address] [place] [address] Scheduled Procedures Name Priority Associated Diagnoses Date/Ti me REMOVAL PLATE SCREW OR PIN SCHED BY FAX 02/08/24 KAYLIE PHONE ASSESS 03/28/2024 7:30 AM FIRE CONTROLMAN documented as of this encounter Visit Diagnoses Not on filedocumented in this encounter Care Teams Sack Maker Relationship Specialty Start Date End Date Clara Stanley APNP [address] [place] [address] PCP - General NURSE PRACTITIONER 06/01/18 documented as of this encounter
--- OUTSIDE RECORDS SUMMARY | 2024-03-02 03:24 | XMS_ITS | Encounter Summary ---
Author Organization [facility] Address [address] [place] [address]. [place], [place] [address] [place] [address] Care Team Providers Care Mechanical Meter Tester Name Role Phone Clara Stanley Primary Care Provider +[phone] Reason for Visit * Reason Onset Date Comments Medication Request 09/03/2018 Encounter Details Date Type Department Care Team (Late st Contact Info) Description 09/03/2018 Telephone [facility] Family [facility] [address] [place] [address] Clara Stanley APNP [address] [place] [address] Medication Request Social History Tobacco Use Types Packs/Day [...] Progress Notes * Cheri Steiner RN - 09/07/2018 10:33 AM CDT [facility] 09/07/18 * Cheri Steiner RN - 09/06/2018 9:59 AM CDT [facility] 09/06/18 * Torri Leong MA - 09/03/2018 4:34 PM CDT [facility] 09/03/18 * ZEB Nunn - 09/03/2018 2:42 PM CDT How long has pt had symptoms---I usually have pt's to treat over the counter for a few days Typicalcolds will usually peak in 3-5 days before starting to improve. He will need to treat with coricidin HBP due to being treated for HBP. He can use sinus rinses and over the counter Flonase. * Mellisa Carney - 09/03/2018 11:47 AM CDT Patient request med for clogged ears, sore throat, sinus drainage. Feels like run over by a truck. Patient uses [facility]. documented in this encounter Plan of Treatment Upcoming Encounters Date Type Department Care Team (Late st Contact Info) Description 03/28/2024 7:30 AM FOOD SERVICE Hospital Encounter [facility] [address] [place] [address] [place] [address] Antwan Stone DPM [address], [place] [address] 03/28/2024 7:30 AM FOOD SERVICE Anesthesia Event [place] [address] Shanelle Avila, CARDIAC RN [address] [place] [address] 03/28/2024 7:30 AM FOOD SERVICE - 03/28/2024 8:48 AM FOOD SERVICE Surgery [facility] [place] [address] Antwan Stone, DPÁngel [address], [place] [address] REMOVAL OF HARDWARE LEFT FOOT 04/05/2024 8:30 AM FOOD SERVICE Office Visit Darren Chaudhari-O'F allon THREE [facility], [facility] [address] [place] [address] Dominick Mccloud MD Three [facility]. [facility] [address] [place] [address] Scheduled Procedures Name Priority Associated Diagnoses Date/Ti me REMOVAL PLATE SCREW OR PIN SCHED BY FAX 02/08/24 [facility] PHONE ASSESS 03/28/2024 7:30 AM FOOD SERVICE documented as of this encounter Visit Diagnoses Not on filedocumented in this encounter Care Teams Mechanical Meter Tester Relationship Specialty Start Date End Date Clara Stanley APNP [address] [place] [address] PCP - General NURSE PRACTITIONER 06/01/18 documented as of this encounter
--- OUTSIDE RECORDS SUMMARY | 2024-03-02 03:25 | XMS_ITS | Encounter Summary ---
Author Organization [facility] Address [address] [place] [address]. [place], [place] [address] [place] [address] Care Team Providers Care Polysomnography Tech Name Role Phone Jerry Fatima MD Primary Care Provider Yan alvarado Encounter Details Date Type Department Care Team (Latest Contact Info) Description 12/05/2014 Abstract [facility] Medical Group Social History Tobacco Use Types Packs/Day Years Used Date Smoking Tobacco: Never Assessed Sex and Gender Information Value Date Recorded Sex Assigned at Not on file Legal Sex Male 9:00 PM CDT Gender Identity Not on file Sexual Orientation Not on file documented as of this encounter Plan of Treatment Upcoming Encounters Date Type Department Care Team (Late st Contact Info) Description 03/28/2024 7:30 AM EDUCATIONAL PROGRAM ASSISTANT Hospital Encounter [facility] [place] [address] Antwan Stone, DIEGO [address], [place] [address] 03/28/2024 7:30 AM EDUCATIONAL PROGRAM ASSISTANT Anesthesia [place] [address] Shanelle Avila, MILEAGE CLERK [address] [place] [address] 03/28/2024 7:30 AM EDUCATIONAL PROGRAM ASSISTANT - 03/28/2024 8:48 AM EDUCATIONAL PROGRAM ASSISTANT [facility] [address] Antwan Stone DPM [address], [place] [address] REMOVAL OF HARDWARE LEFT FOOT 04/05/2024 8:30 AM EDUCATIONAL PROGRAM ASSISTANT Office Visit [facility]ren Chaudhari-O'F allon THREE [facility], [facility] [address] [place] [address] Dominick Mccloud MD Three [facility]. [facility] [address] [place] [address] Scheduled Procedures Name Priority Associated Diagnoses Date/Ti me REMOVAL PLATE SCREW OR PIN SCHED BY FAX 02/08/24 [facility] PHONE ASSESS 03/28/2024 7:30 AM EDUCATIONAL PROGRAM ASSISTANT documented as of this encounter Visit Diagnoses Not on filedocumented in this encounter Care Teams Polysomnography Tech Relationship Specialty Start Date End Date Jerry Fatima MD PCP - General 01/11/15 05/31/18 documented as of this encounter
--- OUTSIDE RECORDS SUMMARY | 2024-03-02 03:25 | XMS_ITS | Encounter Summary ---
Author Organization [facility] Address [address] [place] [address]. [place], [place] [address] [place] [address] Care Team Providers Care Instrument Maker Apprentice Name Role Phone Jerry Fatima MD Primary Care Provider Yan alvarado Encounter Details Date Type Department Care Team (Latest Contact Info) Description 12/06/2014 Abstract [facility] Medical Group Social History Tobacco Use Types Packs/Day Years Used Date Smoking Tobacco: Never Assessed Sex and Gender Information Value Date Recorded Sex Assigned at Not on file Legal Sex Male 9:00 PM CDT Gender Identity Not on file Sexual Orientation Not on file documented as of this encounter Progress Notes * Marge Carreon Md, MD - 12/06/2014 9:38 AM CDT Message Date of Hospital/DE Discharge: 12/06/2014 Date of Contact: 12/06/2014 Individual Contacted: Spouse, Faith Contacted by: Cris Reviewed/ Addressed Pt discharged today, doing well. Follow up scheduled. Signatures Electronically signed by : Cris Yusuf, ; Dec 06 2014 9:39AM BARIATRIC PHYSICIAN (Author) documented in this encounter Plan of Treatment Upcoming Encounters Date Type Department Care Team (Late st Contact Info) Description 03/28/2024 7:30 AM BARIATRIC PHYSICIAN Hospital Encounter [facility] [place] [address] Antwan Stone DPM [address], [place] [address] 03/28/2024 7:30 AM BARIATRIC PHYSICIAN Anesthesia [place] [address] Shanelle Avila, FLOOR COVERING LAYER [address] [place] [address] 03/28/2024 7:30 AM BARIATRIC PHYSICIAN - 03/28/2024 8:48 AM BARIATRIC PHYSICIAN [place] [address] Antwan Stone, DPM [address], [place] [address] REMOVAL OF HARDWARE LEFT FOOT 04/05/2024 8:30 AM BARIATRIC PHYSICIAN Office Visit [facility] THREE [facility], [facility] [place] [address] [place] [address] Dominick Mccloud MD Three [facility]. [facility], [place] [address] [place], [place] [address] Scheduled Procedures Name Priority Associated Diagnoses Date/Ti me REMOVAL PLATE SCREW OR PIN SCHED BY FAX 02/08/24 [facility] PHONE ASSESS 03/28/2024 7:30 AM BARIATRIC PHYSICIAN documented as of this encounter Visit Diagnoses Not on filedocumented in this encounter Care Teams Instrument Maker Apprentice Relationship Specialty Start Date End Date Jerry Fatima MD PCP - General 01/11/15 05/31/18 documented as of this encounter
--- OUTSIDE RECORDS SUMMARY | 2024-03-02 03:25 | XMS_ITS | Encounter Summary ---
Author Organization [facility] Address [address] [place] [address]. [place], [place] [address] [place] [address] Care Team Providers Care Deck Engineer Name Role Phone Jerry Fatima MD Primary Care Provider Yan alvarado Encounter Details Date Type Department Care Team (Late st Contact Info) Description 06/15/2014 Abstract [facility] Conversion Md, Generic Conversion, Social History Tobacco Use Types Packs/Day Years [...] st Contact Info) Description 03/28/2024 7:30 AM CASINO CASHIER MANAGER Hospital Encounter [facility] [place] [address] Antwan Stone, DIEGO [address] [place] [address] 03/28/2024 7:30 AM CASINO CASHIER MANAGER Anesthesia [place] [address] Shanelle Avila, OPERATIONS PLANNER [address] [place] [address] 03/28/2024 7:30 AM CASINO CASHIER MANAGER - 03/28/2024 8:48 AM CASINO CASHIER MANAGER Surgery [facility] [place] [address] Antwan Stone DPM [address], [place] [address] REMOVAL OF HARDWARE LEFT FOOT 04/05/2024 8:30 AM CASINO CASHIER MANAGER Office Visit Darren Chaudhari-O'F allon THREE [facility], [facility] [address] [place] [address] Dominick Mccloud MD Three [facility]. [facility] [address] [place] [address] Scheduled Procedures Name Priority Associated Diagnoses Date/Ti me REMOVAL PLATE SCREW OR PIN SCHED BY FAX 02/08/24 [facility] PHONE ASSESS 03/28/2024 7:30 AM CASINO CASHIER MANAGER documented as of this encounter Visit Diagnoses Not on filedocumented in this encounter Care Teams Deck Engineer Relationship Specialty Start Date End Date Jerry Fatima MD PCP - General 01/11/15 05/31/18 documented as of this encounter
--- OUTSIDE RECORDS SUMMARY | 2024-03-02 03:25 | XMS_ITS | Encounter Summary ---
Author Organization [facility] Address [address] [place] [address]. [place], [place] [address] [place] [address] Care Team Providers Care Braider Setter Name Role Phone Jerry Fatima MD Primary Care Provider Yan alvarado Encounter Details Date Type Department Care Team (Latest Contact Info) Description 01/24/2016 Abstract [facility] Medical Group Social History Tobacco Use Types Packs/Day Years Used Date Smoking Tobacco: Never Assessed Sex and Gender Information Value Date Recorded Sex Assigned at Not on file Legal Sex Male 9:00 PM CDT Gender Identity Not on file Sexual Orientation Not on file documented as of this encounter Progress Notes * Jerry Fatima MD - 01/24/2016 6:22 AM CST Verified Results *A1C In Office 22Jan2016 10:22AM Jerry Fatima Test Name Result Flag Reference A1C 5.0 4.2 - 6.5 % HbA1C QU-CBC ( INCLUDES DIFF/PLT ) [id number] 22Jan2016 10:17AM Jerry Fatima Test Name Result Flag Reference WHITE BLOOD CELL COUNT 9.2 3.8-10.8 UNITS: Thousand/uL RED BLOOD CELL COUNT 4.82 Million/uL 4.20-5.80 HEMOGLOBIN 13.9 g/dL 13.2-17.1 HEMATOCRIT 41.6 % 38.5-50.0 MCV 86.4 fL 80.0-100.0 MCH 28.9 pg 27.0-33.0 MCHC 33.4 g/dL 32.0-36.0 RDW 13.6 % 11.0-15.0 PLATELET COUNT 215 140-400 UNITS: Thousand/uL MPV 11.4 fL 7.5-11.5 ABSOLUTE NEUTROPHILS 6560 cells/uL 5710-2593 ABSOLUTE LYMPHOCYTES 1463 cells/uL 850-3900 ABSOLUTE MONOCYTES 837 cells/uL 200-950 ABSOLUTE EOSINOPHILS 313 cells/uL 15-500 ABSOLUTE BASOPHILS 28 cells/uL 0-200 NEUTROPHILS 71.3 % LYMPHOCYTES 15.9 % MONOCYTES 9.1 % EOSINOPHILS 3.4 % BASOPHILS 0.3 % Test Performed at: [facility] [address] [place] [address] ENRICO VALDEZ DO,MPH QU-COMPREHENSIVE METABOLIC PANEL [id number] 22Jan2016 10:17AM Jerry Fatima Test Name Result Flag Reference GLUCOSE 94 mg/dL 65-99 Fasting reference interval UREA NITROGEN (BUN) 14 mg/dL 7-25 CREATININE 0.74 mg/dL 0.60-1.35 eGFR NON-AFR. [place] 109 > OR = 60 UNITS: mL/min/1.73m2 eGFR 126 > OR = 60 UNITS: mL/min/1.73m2 BUN/CREATININE RATIO 6-22 NOT APPLICABLE (calc) SODIUM 136 mmol/L 135-146 POTASSIUM 4.6 mmol/L 3.5-5.3 CHLORIDE 102 mmol/L 98-110 CARBON DIOXIDE 26 mmol/L 20-31 CALCIUM 9.9 mg/dL 8.6-10.3 PROTEIN, TOTAL 7.4 g/dL 6.1-8.1 ALBUMIN 4.4 g/dL 3.6-5.1 GLOBULIN 3.0 1.9-3.7 UNITS: g/dL (calc) ALBUMIN/GLOBULIN RATIO 1.5 (calc) 1.0-2.5 BILIRUBIN, TOTAL 0.4 mg/dL 0.2-1.2 ALKALINE PHOSPHATASE 84 U/L 40-115 AST 18 U/L 10-40 ALT 16 U/L 9-46 Test Performed at: [facility] [place] [address] [place] [address] ENRICO VALDEZ DO,MPH QU-LIPID PANEL WITH REFLEX TO DIRECT LDL [id number] 22Jan2016 10:17AM Jerry Fatima Test Name Result Flag Reference CHOLESTEROL, TOTAL 214 mg/dL H 125-200 HDL CHOLESTEROL 51 mg/dL > OR = 40 TRIGLYCERIDES 152 mg/dL H <150 LDL-CHOLESTEROL 133 H <130 UNITS: mg/dL (calc) Desirable range <100 mg/dL for patients with CHD or diabetes and <70 mg/dL for diabetic patients with known heart disease. CHOL/HDLC RATIO 4.2 (calc) < OR = 5.0 NON HDL CHOLESTEROL 163 H UNITS: mg/dL (calc) Target for non-HDL cholesterol is 30 mg/dL higher than LDL cholesterol target. Test Performed at: [facility] [place] [address] [place] [address] ENRICO VALDEZ DO,MPH Discussion/Summary labs are generally good other than increased LDL or bad cholesterol of 130. Our goal is less than 100. He is currently taking Lipitor 20 mg daily, we would like to increase this to 40 mg daily. Recheck lipids, AST, CK eight weeks. documented in this encounter Plan of Treatment Upcoming Encounters Date Type Department Care Team (Late st Contact Info) Description 03/28/2024 7:30 AM TASSEL MAKING 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 Hospital Encounter [facility] [place] [address] Antwan Stone DPM [address], [place] [address] 03/28/2024 7:30 AM TASSEL MAKING 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 [place] [address] Shanelle Avila, DISTRIBUTION AGENT [address] [place] [address] 03/28/2024 7:30 AM TASSEL MAKING 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 - 03/28/2024 8:48 AM TASSEL MAKING 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 [place] [address] Antwan Stone DPM [address], [place] [address] REMOVAL OF HARDWARE LEFT FOOT 04/05/2024 8:30 AM TASSEL MAKING 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 Office Visit Darren Chaudhari-O'F johnn THREE [facility], [facility] [address] [place] [id number] Dominick Mccloud MD Three [facility]. [facility] [address] [place], [place] [phone] Scheduled Procedures Name Priority Associated Diagnoses Date/Ti me REMOVAL PLATE SCREW OR PIN SCHED BY FAX 02/08/24 [facility] PHONE ASSESS 03/28/2024 7:30 AM TASSEL MAKING 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 documented as of this encounter Visit Diagnoses Not on filedocumented in this encounter Care Teams Braider Setter Relationship Specialty Start Date End Date Jerry Fatima MD PCP - General 01/11/15 05/31/18 documented as of this encounter
--- OUTSIDE RECORDS SUMMARY | 2024-03-02 03:25 | XMS_ITS | Encounter Summary ---
Author Organization [facility] Address [address] [place] [address]. [place] [address] [place] [address] Care Team Providers Care Syrup Mixer Assistant Name Role Phone Jerry Fatima MD Primary Care Provider Yan alvarado Encounter Details Date Type Department Care Team (Late st Contact Info) Description 08/21/2014 Abstract [facility] Marjan Lai NP [address] [place] [address] Social History Tobacco Use Types Packs/Day Years Used Date Smoking Tobacco: Never Assessed Sex and Gender Information Value Date Recorded Sex Assigned at Not on file Legal Sex Male 9:00 PM CDT Gender Identity Not on file Sexual Orientation Not on file documented as of this encounter Progress Notes * Marjan Lai NP - 08/21/2014 12:00 AM CDT Patient Name: Kwaku Kulkarni : 1965 Date: 08/21/2014 Dictated By: Keke Burr RN Created by Marjan Lai on 08/21/14 - 10:01 am: ambien 10mg qhs prn 30 no refills Rx called in. Electronically approved by: Keke Burr Date: 08/21/14 10:08 TANNER documented in this encounter Plan of Treatment Upcoming Encounters Date Type Department Care Team (Late st Contact Info) Description 03/28/2024 7:30 AM BARK TANNER Hospital Encounter [facility] [place] [address] Antwan Stone DPM [address] [place] [address] 03/28/2024 7:30 AM BARK TANNER Anesthesia Event [facility] [place] [address] Shanelle Avila, RECEIPT AND REPORT CLERK [address] [place] [address] 03/28/2024 7:30 AM BARK TANNER - 03/28/2024 8:48 AM BARK TANNER Surgery [facility] [place] [address] Antwan Stone DPM [address] [place] [address] REMOVAL OF HARDWARE LEFT FOOT 04/05/2024 8:30 AM BARK TANNER Office Visit [facility] THREE [facility], [facility] [address] [place] [address] Dominick Mccloud MD Three [facility]. [facility] [address] [place] [address] Scheduled Procedures Name Priority Associated Diagnoses Date/Ti me REMOVAL PLATE SCREW OR PIN SCHED BY FAX 02/08/24 [facility] PHONE ASSESS 03/28/2024 7:30 AM BARK TANNER documented as of this encounter Visit Diagnoses Not on filedocumented in this encounter Care Teams Syrup Mixer Assistant Relationship Specialty Start Date End Date Jerry Fatima MD PCP - General 01/11/15 05/31/18 documented as of this encounter
--- OUTSIDE RECORDS SUMMARY | 2024-03-02 03:25 | XMS_ITS | Encounter Summary ---
Author Organization [facility] Address [address] [place] [address]. [place], [place] [address] [place] [address] Care Team Providers Care Bricklayer'S Assistant Name Role Phone Clara Stanley Primary Care Provider [phone] Reason for Visit * Reason Comments Consult For Colonoscopy no complaints * Consultation (Routine) - Closed Specialty Diagnoses / Procedures Referred By Erik t Referred To Contact GASTROENTEROLOGY Diagnoses Colon cancer screening Clara Stanley APNP [address] [place] [address] Phone: tel: fax: [facility] - [address], [address] [place] [phone] Phone: tel: fax: Referral ID Status Reason Start Date Expiration Date Visits Re quested Visits Authorized [id number] Closed 06/07/2018 07/08/2019 100 100 Encounter Details Date Type Department Care Team (Latest Contact Info) Description 06/17/2018 10:20 AM CDT Office Visit [address], [address] [place] [phone] Clara Stanley APNP [address] [place], [place] [id number] Tracy Encarnacion NP [address] [facility]. [address] [address] Consult For Colonoscopy (no complaints) Social History Tobacco Use Types Packs/Day Years [...] Sign Reading Time Taken Comments Blood Pressure 134/80 06/17/2018 10:26 AM CDT Pulse - - Temperature - - Respiratory Rate - - Oxygen Saturation - - Inhaled Oxygen Concentration - - Weight 168.7 kg (372 lb) 06/17/2018 10:26 AM CDT Height 190.5 cm (6' 3 ) 06/17/2018 10:26 AM CDT Body Mass Index 46.5 06/17/2018 10:26 AM CDT documented in this encounter Patient Instructions * Patient Instructions* Tracy Encarnacion NP - 06/17/2018 10:20 AM CDT Images from the original note were not included. It is recommended to consume 20-35 grams of fiber per day and at least 64 ounces/2 liters of water per day. Below are the common foods with fiber content listed for you. This will help with normal bowel movements. ?? 2018 [employer]. and/or its affiliates. All Rights Reserved. Amount of fiber in different foods Food Serving Grams of fiber Fruits Apple (with skin) 1 medium apple 4.4 Banana 1 medium banana 3.1 Oranges 1 orange 3.1 Prunes 1 cup, pitted 12.4 Juices Apple, unsweetened, with added ascorbic acid 1 cup 0.5 Grapefruit, white, canned, sweetened 1 cup 0.2 Grape, unsweetened, with added ascorbic acid 1 cup 0.5 [place] 1 cup 0.7 Vegetables Cooked Green beans 1 cup 4.0 Carrots 1/2 cup sliced 2.3 Peas 1 cup 8.8 Potato (baked, with skin) 1 medium potato 3.8 Raw Tate (with peel) 1 cucumber 1.5 Lettuce 1 cup shredded 0.5 Tomato 1 medium tomato 1.5 Spinach 1 cup 0.7 Legumes Baked beans, canned, no salt added 1 cup 13.9 Kidney beans, canned 1 cup 13.6 Mckeon beans, canned 1 cup 11.6 Lentils, boiled 1 cup 15.6 Breads, pastas, flours Bran muffins 1 medium muffin 5.2 Oatmeal, cooked 1 cup 4.0 White bread 1 slice 0.6 Whole-wheat bread 1 slice 1.9 Pasta and rice, cooked Macaroni 1 cup 2.5 Rice, brown 1 cup 3.5 Rice, white 1 cup 0.6 Spaghetti (regular) 1 cup 2.5 Nuts Almonds 1/2 cup 8.7 Peanuts 1/2 cup 7.9 To learn how much fiber and other nutrients are in different foods, visit the [place] Department of Agriculture (USDA) National Nutrient Database at: http://www.nal.usda.gov/fnic/food Patient Education Mediterranean Diet About this topic This is a heart healthy diet. It is based on widely used foods and cooking styles from many countries around the [place] Sea. The main pattern for the diet is more plant foods and monounsaturated fats, or good fats, like olive oil. It has less red meats and carbs. You eat more grains, vegetables, legumes, nuts, and fruits. Fish, poultry, and moderate amounts of wine are also included. What will the results be? Your diet will have less saturated fat, cholesterol, and triglycerides. It will be higher in fiber.This will help to keep your blood sugar steady. This diet lowers the chance of heart disease and other health problems. What lifestyle changes are needed? If you do not often eat this way, you will need to change your eating habits. Be sure to get regular exercise. It is believed to help the health benefits of this diet. What changes to diet are needed? You may need to limit the amount of protein and carbs in your diet. Ask your dietitian for help planning meals that are right for you. What foods are good to eat? ?? Fruits and vegetables ?? Whole grains, nuts, and legumes ?? Foods high in fiber ?? Plenty of fish and other seafood ?? [place] oil (good fat) ?? Small amounts of poultry What foods should be limited or avoided? ?? Red meats ?? Sweets, desserts ?? Eggs ?? Butter ?? Gravies and sauces What problems could happen? ?? Your weight may rise because your diet will be higher in fat from olive oil and nuts. ?? You may have lower iron levels. Be sure to eat foods rich in iron. Also, eat foods rich in vitamin C. This will help your body take in iron. ?? You may have lower calcium levels because you are eating less dairy products. Ask your doctor ifyou need to take a calcium supplement. ?? Wine is often thought of as part of a Mediterranean diet. It is not needed and you may choose not to include it. Avoid wine if you are prone to alcohol abuse or are . Also, avoid it if youare at risk for breast cancer, have liver problems, or have other illnesses that make it important for you to not have alcohol. When do I need to call the doctor? ?? If you have any concerns about your diet Where can I learn more? Academy of Nutrition and Dietetics http://www.eatright.org/resource/food/tiewatmn-xkw-ktzd/iqbtqsg-wsjh-vsf-trends/ oddu-la-fnsyloyhzwhui [place] Heart Association https://www.heart.org/en/healthy-living/healthy-eating/eat-smart/nutrition-basic s/mediterranean-diet Last Reviewed Date 2016-01-01 Consumer Information Use and Disclaimer This information [...] right for you. Copyright Copyright ?? 2019 [employer] Clinical [employer], Inc. and its affiliates and/or licensors. All rights reserved. comp/search/. Created using data from the The [employer] National Nutrient Database for Standard Reference. Available at http://www.nal.usda.gov/fnic/foodcomp/search/. Graphic 79492 Version 4.0 documented in this encounter Progress Notes * Tracy Encarnacion NP - 06/17/2018 10:20 AM CDT Images from the original note were not included. Gastroenterology Initial Visit Reason for Visit: Consult For Colonoscopy (no complaints) History of Present Illness: Kwaku Kulkarni is a 53-year-old male being seen in clinic for referral by ZEB Nunn for screening colonoscopy. Bowel habits are daily soft and formed. Patient denies any significant GI symptoms: No nausea, vomiting, dysphagia, abdominal pain, heart burn or acid reflux. Appropriate appetite. No constipation ordiarrhea, no hematochezia or melena. Recent weight loss of about 25 lbs by joining [employer] but didn't keep routine up and gain most back. Prior abdominal surgeries: APPY. No colonoscopies or EGDs in the past. No prior h/o hepatitis, no prior tattoos, no prior blood transfusions, no drug use,+ ETOH use 1-2 drinks 2-3 times a week, and no smoking. No family history of GI/Colon Cancer. NSAID/Blood thinner use: ASA 81 mg daily but consistent. Ibuprofen for shoulder once a week. ROS: Review of Systems Constitutional: Negative for chills, fever and malaise/fatigue. Negative for decreased appetite HENT: Negative for congestion, sore throat and tinnitus. Eyes: Glasses and contacts Respiratory: Negative for cough, hemoptysis, sputum production and shortness of breath. Cardiovascular: Negative for chest pain, palpitations and leg swelling. Gastrointestinal: Refer to HPI. Genitourinary: Negative for dysuria and hematuria. Musculoskeletal: Negative for joint pain (left shoulder pain) and myalgias. Skin: Positive for itching (generalized due to winter per pt. Has eczema as well). Neurological: Negative for dizziness, seizures and headaches. Endo/Heme/Allergies: Does not bruise/bleed easily. Psychiatric/Behavioral: Negative for depression. The patient has insomnia (Sleeps well in recliner but not in bed. Does not feel rested. Most likely he has sleep apnea but has not been tested.). The patient is not nervous/anxious. Medications: Current Outpatient Medications: ??? amlodipine 10 MG tablet, Take 1 tablet (10 mg total) by mouth daily., Disp: 90 tablet, Rfl: 0 ??? cetirizine (ZYRTEC ALLERGY) 10 MG tablet, , Disp: , Rfl: ??? fish oil 1000 MG Cap capsule, , Disp: , Rfl: ??? Magnesium 100 MG Tab, Take by mouth daily., Disp: , Rfl: ??? pravastatin 10 MG tablet, Take 1 tablet (10 mg total) by mouth nightly at bedtime., Disp: 90 tablet, Rfl: 3 Allergies: No Known Allergies Medical History: Past Medical History: Diagnosis Date ??? Depression with anxiety 12/12/2014 ??? Dry skin dermatitis 01/05/2014 ??? Hyperlipidemia 02/21/2015 ??? Hypertension, benign 01/15/2017 ??? Morbid obesity ([facility]) 02/21/2015 ??? Other and unspecified hyperlipidemia 01/06/2014 [...] file Gets together: Not on file Attends confucianist service: Not on file Active member of [...] Heart Disease Father 65 PE: Filed Vitals: 06/17/18 1026 BP: 134/80 Weight: (!) 168.7 kg (372 lb) Height: 6' 3 (1.905 m) PainSc: 0 (0-10 Scale) Physical Exam Constitutional: He is oriented to person, place, and time and well-developed, well-nourished, and in no distress. HENT: Mouth/Throat: Oropharynx is clear and moist. Eyes: No scleral icterus. Cardiovascular: Normal rate, regular rhythm and normal heart sounds. No murmur heard. Pulmonary/Chest: Breath sounds normal. No respiratory distress. Abdominal: Soft. Bowel sounds are normal. He exhibits no distension and no mass. There is no hepatosplenomegaly. There is no tenderness. There is no rebound and no guarding. Very large abdomen, central obesity. Difficult to palpate for organomegaly but not able to feel anygross abnormalities. Musculoskeletal: He exhibits no edema. Neurological: He is alert and oriented to person, place, and time. Gait normal. Skin: Skin is warm and dry. Rash (Eczema patch on Rt medial calf and scattered papules on stomach.)noted. Psychiatric: Mood and affect normal. Nursing note and vitals reviewed. Labs Reviewed: Lab Results Component Value Date WBC 8.2 06/08/2018 RBC 5.04 06/08/2018 HGB 14.7 06/08/2018 HCT 45.1 06/08/2018 RDW 13.4 06/08/2018 PLT 250 06/08/2018 NA 139 06/08/2018 K 4.5 06/08/2018 CL 108 06/08/2018 AGAP 11.7 06/08/2018 GLU 100 (H) 06/08/2018 BUN 10 06/08/2018 CR 0.76 06/08/2018 GFRNON >90 06/08/2018 GFR >90 06/08/2018 CA 9.3 06/08/2018 ALB 4.1 06/08/2018 ALT 27 06/08/2018 AST 19 06/08/2018 ALKP 102 06/08/2018 Endoscopic Results Reviewed: Never performed. Diagnoses/Impression: Colon cancer screening (primary encounter diagnosis) 1. Average colon cancer risk: Overdue by 1 year for initial screening colonoscopy. No GI concerns voiced by pt. 2. Comorbid Conditions: HTN,morbid obesity, HLD, depression, anxiety, insomnia Recommendations and Plan: ?? Schedule initial screening colonoscopy at [facility] ?? Suprep split prep ?? It is recommended to consume 20-35 grams of fiber per day and at least 64 ounces/2 liters of water per day. ?? Pt notes he sleeps well in recliner but not in bed. Most likely he has sleep apnea but has not been tested. Encourage to ask PCP for consideration pulmonology referral to assess. At risk due to neck size, Mallampati and obesity status. ?? All questions answered ?? More recommendations to follow endoscopic evaluation Orders placed this encounter: Suprep bowel Risks/Benefits/Options: Patient presented with risks (can include but are not limited to: discomfort, missing lesions, allergic or adverse reaction to the sedation, perforation of the bowel or upper GI tract which may require hospitalization and surgery, bleeding, infection, aspiration), benefits, and alternatives to the procedure(s) and are in agreement to proceed as planned. Tracy Encarnacion NP 06/17/2018 documented in this encounter Plan of Treatment Upcoming Encounters Date Type Department Care Team (Late st Contact Info) Description 03/28/2024 7:30 AM [facility] Hospital Encounter [facility] [place] [address] Antwan Stone DPM [address] [place] [address] 03/28/2024 7:30 AM PRODUCTION GRADER Anesthesia Event [facility] [address] Shanelle Avila, OIL HEATERMAN [address] [place] [address] 03/28/2024 7:30 AM PRODUCTION GRADER - 03/28/2024 8:48 AM PRODUCTION GRADER Surgery [facility] [address] Antwan Stone, DPM [address] [place] [address] REMOVAL OF HARDWARE LEFT FOOT 04/05/2024 8:30 AM PRODUCTION GRADER Office Visit Darren Chaudhari-O'F allon THREE [facility], [facility] [address] [place] [address] Dominick Mccloud MD Three [facility]. [facility] [address] [place], [place] [address] Scheduled Procedures Name Priority Associated Diagnoses Date/Ti me REMOVAL PLATE SCREW OR PIN SCHED BY FAX 02/08/24 [facility] PHONE ASSESS 03/28/2024 7:30 AM PRODUCTION GRADER documented as of this encounter Visit Diagnoses Diagnosis Colon cancer screening- Primary Special screening for malignant neoplasms, colon Painful orthopaedic hardware (CMS/HCC)- Primary documented in this encounter Care Teams Bricklayer'S Assistant Relationship Specialty Start Date End Date Clara Stanley APNP [address] [place] [address] PCP - General NURSE PRACTITIONER 06/01/18 documented as of this encounter
--- OUTSIDE RECORDS SUMMARY | 2024-03-02 03:25 | XMS_ITS | Encounter Summary ---
Author Organization [facility] Address [address] [place] [address]. [place], [place] [id number] [place] [address] Care Team Providers Care Certified Surgical First Assistant Name Role Phone Jerry Fatima MD Primary Care Provider Yan alvarado Encounter Details Date Type Department Care Team (Latest Contact Info) Description 12/14/2014 Abstract [facility] Social History Tobacco Use Types Packs/Day Years Used Date Smoking Tobacco: Never Assessed Sex and Gender Information Value Date Recorded Sex Assigned at Not on file Legal Sex Male 9:00 PM CDT Gender Identity Not on file Sexual Orientation Not on file documented as of this encounter Progress Notes * Jerry Fatima MD - 12/14/2014 5:44 AM CDT Message letter mailed notifying patient- kh Verified Results QU-LIPID PANEL WITH REFLEX TO DIRECT LDL [id number] 02:38PM Jerry Fatima Test Name Result Flag Reference CHOLESTEROL, TOTAL 206 mg/dL H 125-200 HDL CHOLESTEROL 55 mg/dL > OR = 40 TRIGLYCERIDES 124 mg/dL <150 LDL-CHOLESTEROL 126 <130 UNITS: mg/dL (calc) Desirable range <100 mg/dL for patients with CHD or diabetes and <70 mg/dL for diabetic patients with known heart disease. CHOL/HDLC RATIO 3.7 (calc) < OR = 5.0 NON HDL CHOLESTEROL 151 UNITS: mg/dL (calc) Target for non-HDL cholesterol is 30 mg/dL higher than LDL cholesterol target. Test Performed at: [facility] [address] [place] [address] ENRICO VALDEZ DO,MPH Discussion/Summary Cholesterol is at the high end of normal. He can hold off on starting a cholesterol medicine for now. Followup with the swing saw operator for stress testing as planned. Signatures Electronically signed by : Shyla Obdulia, ; Dec 14 2014 8:07AM HONING MACHINE SET UP OPERATOR (Author) documented in this encounter Plan of Treatment Upcoming Encounters Date Type Department Care Team (Late st Contact Info) Description 03/28/2024 7:30 AM HONING MACHINE SET UP OPERATOR Hospital Encounter [facility] [place] [address] Antwan Stone DPM [address], [place] [address] 03/28/2024 7:30 AM HONING MACHINE SET UP OPERATOR Anesthesia Event [place] [address] Shanelle Avila, CUT OFF WORKER [address] [place] [address] 03/28/2024 7:30 AM HONING MACHINE SET UP OPERATOR - 03/28/2024 8:48 AM HONING MACHINE SET UP OPERATOR Surgery [place] [address] Antwan Stone DPM [address], [place] [address] REMOVAL OF HARDWARE LEFT FOOT 04/05/2024 8:30 AM HONING MACHINE SET UP OPERATOR Office Visit [facility]ren Cardiovascular-O'F allon THREE [facility], [facility] [address] [place] [address] Dominick Mccloud MD Three [facility]. [facility] [address] [place] [address] Scheduled Procedures Name Priority Associated Diagnoses Date/Ti me REMOVAL PLATE SCREW OR PIN SCHED BY FAX 02/08/24 [facility] PHONE ASSESS 03/28/2024 7:30 AM HONING MACHINE SET UP OPERATOR documented as of this encounter Visit Diagnoses Not on filedocumented in this encounter Care Teams Certified Surgical First Assistant Relationship Specialty Start Date End Date Jerry Fatima MD PCP - General 01/11/15 05/31/18 documented as of this encounter
--- OUTSIDE RECORDS SUMMARY | 2024-03-02 03:25 | XMS_ITS | Encounter Summary ---
Author Organization [facility] Address [address] [place] [address]. [place] [address] [place] [address] Care Team Providers Care Professional Fighter Name Role Phone Jerry Fatima MD Primary Care Provider Yan alvarado Encounter Details Date Type Department Care Team (Late st Contact Info) Description 01/11/[address] [facility] [place] [address] Jerry Fatima MD Social History Tobacco Use Types Packs/Day Years [...] st Contact Info) Description 03/28/2024 7:30 AM MARKETING OPERATIONS MANAGER Hospital Encounter [facility] [place] [address] Antwan Stone DPM [address] [place] [address] 03/28/2024 7:30 AM MARKETING OPERATIONS MANAGER Anesthesia Event [facility] [place] [address] Shanelle Avila, SPECIAL PROCEDURES TECH [address] [facility] [place] [address] 03/28/2024 7:30 AM MARKETING OPERATIONS MANAGER - 03/28/2024 8:48 AM MARKETING OPERATIONS MANAGER Surgery [place] [address] Antwan Stone, DPM [address] [place] [address] REMOVAL OF HARDWARE LEFT FOOT 04/05/2024 8:30 AM MARKETING OPERATIONS MANAGER Office Visit Darren Fara-O'F allon THREE [facility], [facility] [address] [place] [address] Dominick Mccloud MD Three [facility]. [facility] [address] [place] [address] Scheduled Procedures Name Priority Associated Diagnoses Date/Ti me REMOVAL PLATE SCREW OR PIN SCHED BY FAX 02/08/24 [facility] PHONE ASSESS 03/28/2024 7:30 AM MARKETING OPERATIONS MANAGER documented as of this encounter Visit Diagnoses Diagnosis Abdominal pain Abdominal pain, unspecified site Painful orthopaedic hardware (CMS/HCC)- Primary documented in this encounter Care Teams Professional Fighter Relationship Specialty Start Date End Date Jerry Fatima MD PCP - General 01/11/15 05/31/18 documented as of this encounter
--- OUTSIDE RECORDS SUMMARY | 2024-03-02 03:25 | XMS_ITS | Encounter Summary ---
Author Organization [facility] Address [address] [place] [address]. [place], [place] [id number] [place] [id number] Care Team Providers Care Baker Bread Name Role Phone Clara Stanley Primary Care Provider [phone] Encounter Details Date Type Department Care Team (Late st Contact Info) Description 06/08/2018 9:20 AM CDT Laboratory Only [facility] Family & Internal Medicine [address] [id number] Social History Tobacco Use Types Packs/Day Years Used Date Smoking Tobacco: Never Smokeless Tobacco: Never Alcohol Use Standard Drinks/Week Comments Yes 3.3 (1 standard drink = 0.6 oz p ure alcohol) AUDIT-C Answer Date Recorded Frequency of Alcohol [...] Contact Info) Description 03/28/2024 7:30 AM [facility] Hospital Encounter [facility] [place] [address] Antwan Stone, DIEGO [address], [place] [address] 03/28/2024 7:30 AM GEOSPATIAL ANALYST Anesthesia Event [facility] [place] [address] Shanelle Avila, MACHINE SILVER STRIPPER [address] [place] [address] 03/28/2024 7:30 AM GEOSPATIAL ANALYST - 03/28/2024 8:48 AM GEOSPATIAL ANALYST Surgery [facility] [place] [address] Antwan Stone, DPM [address], [place] [address] REMOVAL OF HARDWARE LEFT FOOT 04/05/2024 8:30 AM GEOSPATIAL ANALYST Office Visit Darren Chaudhari-O'F allon [facility], [address] [place] [address] Dominick Mccloud MD [facility]. [facility] [address] [place], [place] [address] Scheduled Orders Name Type Priority Associated Diagnoses Orde r Schedule VENIPUNC ARM DRAW Procedures Routine Mixed hyperlipidemia Encounter for preventive health examination Morbid obesity ([facility]/HCC [facility]) Screening for endocrine disorder Prostate cancer screening Ordered: 06/08/2018 Scheduled Procedures Name Priority Associated Diagnoses Date/Ti me REMOVAL PLATE SCREW OR PIN SCHED BY FAX 02/08/24 [facility] PHONE ASSESS 03/28/2024 7:30 AM GEOSPATIAL ANALYST documented as of this encounter Results * PSA, TOTAL (06/08/2018 10:57 AM CDT) PSA 1.23 <4.00 NG/ML 06/08/2018 8:09 PM CDT [facility] Comment: Test was performed using the Siemens method. ??Results obtained with other assay methods or kits cannot be used interchangeably with results obtained by the Siemens method. 06/08/2018 10:5 7 AM CDT Clara Ricardo Lizeth [facility] Final Resul t Performing Organization Address City/[facility] Co de Phone Number [facility] [address] [place] [address], [place] [phone] * URIC ACID BLOOD (06/08/2018 10:57 AM CDT) URIC ACID 6.0 3.5 - 7.2 MG/DL 06/08/2018 8:07 PM CDT [facility] 06/08/2018 10:5 7 AM CDT Clara H Lizeth [facility] Final Resul t Performing Organization Address [facility] de Phone Number [facility] [address] [place] [address], [place] [phone] * TSH W/REFLEX (06/08/2018 10:57 AM CDT) TSH 2.620 0.358 - 3.74 uIU/ML 06/08/2018 8:07 PM CDT [facility] Comment: HIGH DOSES OF BIOTIN MAY INTERFERE WITH THIS TEST RESULT. CORRELATION TO CLINICAL HISTORY AND PRESENTATION RECOMMENDED. FREE T4 NOT INDICATED 06/08/2018 10:5 7 AM CDT Clara Ricardo Lizeth [facility] Final Resul t Performing Organization Address City/[facility] Co de Phone Number [facility] [address] [place] [address], [place] [phone] * (ABNORMAL) LIPID PANEL (06/08/2018 10:57 AM CDT) CHOLESTEROL 205(H) <200 MG/DL 06/08/2018 8:07 PM [facility] TRIGLYCERIDES 115 <150 MG/DL 06/08/2018 8:07 PM [facility] HDL 47 >40.0 MG/DL 06/08/2018 8:07 PM [facility] LDL (CALCULATED) 135(H) <100 MG/DL 06/08/2018 8:07 PM [facility] NON HDL CHOLESTEROL 158(H) <130 MG/DL 06/08/2018 8:07 [facility] CHOL/HDL RATIO 4.4 0.0 - 4.5 06/08/2018 8:07 [facility] VLDL CALCULATION 23 5 - 55 MG/DL 06/08/2018 8:07 [facility] LIPID INTERPRETATION 06/08/2018 8:07 [facility] Comment: [facility] CON[facility]ENS[facility] REPORT RECOMMENDATIONS: ?ADULT ?CHILD ??LOW RISK: ?CHOLESTEROL ? <200 ? <170 ?TRIGLYCERIDE ?<150 ?--- ?HDL ? >=60 ?--- ?LDL ? <100 ? <110 ??BORDERLINE: ?CHOLESTEROL ? 200-239 ?? 170-199 ?TRIGLYCERIDE ?150-199 ? --- ?HDL ?40-59 ?--- ?LDL ? 100-159 ?? 110-129 ??HIGH RISK: ?CHOLESTEROL ? >=240 ?>=200 ?TRIGLYCERIDE ?>=200 ? --- ?HDL ?<40 ?--- ?LDL ? >=160 ?>=130 06/08/2018 10:5 7 AM CDT us Clara [facility] Final Resul t [facility] [address] [place] [address], * (ABNORMAL) COMPREHENSIVE METABOLIC PANEL (06/08/2018 10:57 AM CDT) GLUCOSE 100(H) 70 - 99 MG/DL 06/08/2018 8:07 PM CDT [facility] BUN 10 7 - 18 MG/DL 06/08/2018 8:07 PM CDT [facility] CREATININE S/P/B 0.76 0.7 - 1.3 MG/DL 06/08/2018 8:07 PM CDT [facility] SODIUM S/P/B 139 136 - 145 MMOL/L 06/08/2018 8:07 PM CDT [facility] POTASSIUM S/P/B 4.5 3.5 - 5.1 MMOL/L 06/08/2018 8:07 PM CDT [facility] CHLORIDE S/P/B 108 100 - 108 MMOL/L 06/08/2018 8:07 PM CDT [facility] CO2 23.8 21 - 32 MMOL/L 06/08/2018 8:07 PM T [facility] CALCIUM S/P/B 9.3 8.5 - 10.1 MG/DL 06/08/2018 8:07 PM T [facility] BILIRUBIN TOTAL S/P/B 0.4 0.2 - 1.2 MG/DL 06/08/2018 8:07 PM T [facility] TOTAL PROTEIN S/P/B 7.8 6.4 - 8.2 G/DL 06/08/2018 8:07 PM T [facility] ALBUMIN S/P/B 4.1 3.4 - 5.0 G/DL 06/08/2018 8:07 PM CDT [facility] AST 19 15 - 37 U/L 06/08/2018 8:07 PM T [facility] ALT 27 16 - 60 U/L 06/08/2018 8:07 PM T [facility] ALKALINE PHOSPHATASE S/P/B 102 50 - 136 U/L 06/08/2018 8:07 PM T [facility] ANION GAP 11.7 8 - 20 MMOL/L 06/08/2018 8:07 PM T [facility] BUN CREATININE RATIO 13.2 6 - 06/08/2018 8:07 PM T [facility] A/G RATIO 1.1 1.0 - 2.0 RATIO 06/08/2018 8:07 PM T [facility] EGFR NON-AFR. AMER. >90 >90 ML/MIN/1.7 3 M2 06/08/2018 8:07 PM T [facility] EGFR AFR. AMER. >90 >90 ML/MIN/1.7 3 M2 06/08/2018 8:07 PM CDT [facility] Comment: NOTE: eGFR is not calculated for patients <18 years of age. This is an estimated GFR (CKD EPI) and should not be used for calculating drug doses. 06/08/2018 10:5 7 AM CDT Clara [facility] Final Resul t [facility] [address] [place] [address], [place] [phone] * (ABNORMAL) CBC W/DIFF AUTOMATED (06/08/2018 10:57 AM CDT) WBC 8.2 4.5 - 11.0 x10'3/uL 06/08/2018 7:43 PM CDT [facility] RBC 5.04 4.70 - 6.10 x10'6/uL 06/08/2018 7:43 PM CDT [facility] HGB 14.7 14.0 - 18.0 G/DL 06/08/2018 7:43 PM CDT [facility] HCT 45.1 43.0 - 54.0 % 06/08/2018 7:43 PM CDT [facility] MCV 89.5 80.0 - 94.0 FL 06/08/2018 7:43 PM CDT [facility] MCH 29.2 27.0 - 31.0 PG 06/08/2018 7:43 PM CDT [facility] MCHC 32.6 32.0 - 36.0 G/DL 06/08/2018 7:43 PM CDT [facility] RDW 13.4 11.5 - 14.5 % 06/08/2018 7:43 PM CDT [facility] PLT 250 130 - 400 x10'3/uL 06/08/2018 7:43 PM CDT [facility] MPV 12.7(H) 9.3 - 12.2 FL 06/08/2018 7:43 PM CDT [facility] DIFFERENTIAL TYPE AUTOMATED DIFFERENTIAL 06/08/2018 7:43 PM CDT [facility] NEUTROPHILS % 70.2 % 06/08/2018 7:43 PM CDT [facility] LYMPHOCYTES % 13.8 % 06/08/2018 7:43 PM CDT [facility] MONOCYTES % 9.4 % 06/08/2018 7:43 PM CDT [facility] EOSINOPHILS 5.5 % 06/08/2018 7:43 PM CDT [facility] BASOPHILS 0.7 % 06/08/2018 7:43 PM CDT [facility] IMMATURE GRANS % 0.4(H) 0 % 06/09/19 19 7:43 PM CDT [facility] ABS. NEUTROPHILS TOTAL 5.74 1.80 - 7.70 x10'3/uL 06/08/2018 7:43 PM CDT [facility] ABS. LYMPHOCYTES 1.13 1.00 - 4.80 x10'3/uL 06/08/2018 7:43 PM CDT [facility] ABS. MONOCYTES 0.77 0.30 - 0.82 x10'3/uL 06/08/2018 7:43 PM CDT [facility] ABS. EOSINOPHILS 0.45 0.04 - 0.54 x10'3/uL 06/08/2018 7:43 PM CDT [facility] ABS. BASOPHILS 0.06 0.01 - 0.08 x10'3/uL 06/08/2018 7:43 PM CDT [facility] ABS. IMMATURE GRANULOCYTES 0.03 0.00 - 0.03 x10'3/uL 06/08/2018 7:43 PM CDT [facility] 06/08/2018 10:5 7 AM CDT Clara [facility] Final Resul t [facility] [address] [place] [address], documented in this encounter Visit Diagnoses Diagnosis Mixed hyperlipidemia- Primary Encounter for preventive health examination Routine general medical examination at a health care facility Morbid obesity (CMS/HCC HHS/HCC) Morbid obesity Screening for endocrine disorder Prostate cancer screening Special screening for malignant neoplasm of prostate Painful orthopaedic hardware (CMS/HCC)- Primary documented in this encounter Care Teams Baker Bread Relationship Specialty Start Date End Date Clara Stanley APNP [address] [place] [id number] PCP - General NURSE PRACTITIONER 06/01/18 documented as of this encounter
--- OUTSIDE RECORDS SUMMARY | 2024-03-02 03:25 | XMS_ITS | Encounter Summary ---
Author Organization [facility] Address [address] [place] [address]. [place], [place] [address] [place] [address] Care Team Providers Care Scouring Pads Supervisor Name Role Phone Jerry Fatima MD Primary Care Provider Yan alvarado Encounter Details Date Type Department Care Team (Late st Contact Info) Description 01/22/2016 Abstract [facility] Medical Group Family & Internal Medicine [address] [phone] Jeryr Fatima MD Social History Tobacco Use Types Packs/Day Years Used Date Smoking Tobacco: Never Assessed Sex and Gender Information Value Date Recorded Sex Assigned at Not on file Legal Sex Male 9:00 PM CDT Gender Identity Not on file Sexual Orientation Not on file documented as of this encounter Last Filed Vital Signs Vital Sign Reading Time Taken Comments Blood Pressure 140/78 01/22/2016 9:15 AM ADMINISTRATOR SOCIAL WELFARE Pulse 64 01/22/2016 9:15 AM ADMINISTRATOR SOCIAL WELFARE Temperature - - Respiratory Rate - - Oxygen Saturation - - Inhaled Oxygen Concentration - - Weight 161.9 kg (357 lb) 01/22/2016 9:15 AM ADMINISTRATOR SOCIAL WELFARE Height 190.5 cm (6' 3 ) 01/22/2016 9:15 AM ADMINISTRATOR SOCIAL WELFARE Body Mass Index 44.62 01/22/2016 9:15 AM ADMINISTRATOR SOCIAL WELFARE documented in this encounter Progress Notes * Jerry Fatima MD - 01/22/2016 9:15 AM CST Reason For Visit Chronic Recheck Visit Chief Complaint Patient is here for follow up on HTN and DM. History of Present Illness REALM SF: Date: 01/22/16 Examiner: Jadyn Grade Completed: 12+ Reading Level: high school + Can Pronounce: Menopause, Antibiotics, Exercise, Jaundice, Rectal, Anemia, Behavior Unable to Pronounce: PHQ-9 Depression Questionnaire: Over the past 2 weeks, how often have you been bothered by the following problems? 1.) Little interest or pleasure in doing things? Half the days or more. 2.) Feeling down, depressed or hopeless? Nearly every day. 3.) Trouble falling asleep or sleeping too much? Nearly every day. 4.) Feeling tired or having little energy? Nearly every day. 5.) Poor appetite or overeating? Nearly every day. 6.) Feeling bad about yourself, or that you are a failure, or have let yourself or your family down? Nearly every day. 7.) Trouble concentrating on things, such as reading a newspaper or watching television? Several days. 8.) Moving or speaking so slowly that other people could have noticed, or the opposite, moving or speaking faster than usual? Several days. 9.) Thoughts that you would be off or of hurting yourself in some way? Not at all. TOTAL SCORE: 19. How difficult have these problems made it for you to do your work, take care of things at home, or get along with people? Somewhat difficult. HPI Free Text: Here for followup of chronic medical conditions. He continues taking his blood pressure medicine without any headache, chest pain, or swelling in his legs. Blood pressure remains to be stable. Today,he is at 148/70. His moods remain to be under good control with Prozac and Xanax. She is sleeping well at night with the zolpidem. He stopped his Lipitor due to intolerance and has been watching his diet. He has not had labs for a while and needs to have those checked. He is requesting refills of his medicines. Overall, she is doing well with no new concerns or complaints. Review of Systems See HPI for pertinent positives. Active Problems 1. Abdominal pain (789.00) (R10.9) 2. Acute pharyngitis (462) (J02.9) 3. Atypical chest pain (786.59) (R07.89) 4. Blood pressure elevated without history of HTN (796.2) (R03.0) 5. Cough (786.2) (R05) 6. Depression with anxiety (300.4) (F41.8) 7. Dry skin dermatitis (692.89) (L85.3) 8. Hyperlipidemia (272.4) (E78.5) 9. Insomnia (780.52) (G47.00) 10. Itching (698.9) (L29.9) 11. Obesity (278.00) (E66.9) 12. Pain of great toe, right (729.5) (M79.674) Surgical History 1. History of Appendectomy 2. History of Tonsillectomy Family History Father 1. Family history of Benign diastolic hypertension 2. Family history of coronary artery disease (V17.3) (Z82.49) Child 3. No pertinent family history Family History 4. Family history of Arthritis (V17.7) Social History ?? Caffeine use (V49.89) (F15.90) ? Never a smoker ?? Social alcohol use (Z78.9) Current Meds 1. ALPRAZolam 0.5 MG Oral Tablet; TAKE 1 TABLET TWICE DAILY NEEDED; Therapy: 72Czo4176 to (Evaluate:26Dec2015) Requested for: 09Jan2016; Last Rx:[id number]; Status: ACTIVE - Renewal Denied Ordered 2. AmLODIPine Besylate 5 MG Oral Tablet; Therapy: 19Bee9965 to Recorded 3. Atorvastatin Calcium 20 MG Oral Tablet; Therapy: 11Qov4797 to Recorded 4. FLUoxetine HCl - 40 MG Oral Capsule; Therapy: 03Gbn0985 to Recorded 5. Triamcinolone Acetonide 0.1 % External Lotion; APPLY 2-3 TIMES DAILY TO AFFECTED AREA(S); Therapy: 05Jan2014 to (Last Rx:05Jan2014) Requested for: 05Jan2014 Ordered 6. Zolpidem Tartrate 10 MG Oral Tablet; TAKE ONE TABLET BY MOUTH ONE HOUR BEFORE BEDTIME NEEDED FOR SLEEP; Therapy: 21Uow7502 to (Evaluate:16Fcw4373) Requested for: 20Dec2015; Last Rx:07Jun2015; Status: ACTIVE - Renewal Denied Ordered 7. ZyrTEC Allergy 10 MG Oral Tablet; Therapy: (Recorded:66Sby7641) to Recorded Allergies 1. No Known Drug Allergies Vitals Recorded: 22Jan2016 09:15AM Heart Rate 64 Respiration 16 Systolic 140 Diastolic 78 O2 Saturation 98 Height 6 ft 3 in Weight 357 lb BMI Calculated 44.62 BSA Calculated 2.81 Physical Exam Constitutional General appearance: No acute distress, well appearing and well nourished. Pulmonary Respiratory effort: No increased work of breathing or signs of respiratory distress. Auscultation of lungs: Clear to auscultation. Cardiovascular Auscultation of heart: Normal rate and rhythm, normal S1 and S2, without murmurs. Examination of extremities for edema and/or varicosities: Normal. Lymphatic Palpation of lymph nodes in neck: No lymphadenopathy. Musculoskeletal Gait and station: Normal. Digits and nails: Normal without clubbing or cyanosis. Psychiatric Orientation to person, place and time: Normal. Mood and affect: Normal. Results/Data *A1C In Office 22Jan2016 10:22AM Jerry Fatima [...] 11.4 fL 7.5-11.5 ABSOLUTE NEUTROPHILS 6560 cells/uL 6488-6896 ABSOLUTE LYMPHOCYTES 1463 cells/uL 850-3900 ABSOLUTE MONOCYTES 837 cells/uL 200-950 ABSOLUTE EOSINOPHILS 313 cells/uL 15-500 ABSOLUTE BASOPHILS 28 cells/uL 0-200 NEUTROPHILS 71.3 % LYMPHOCYTES 15.9 % MONOCYTES 9.1 % EOSINOPHILS 3.4 % BASOPHILS 0.3 % Test Performed at: [facility] [address] [place] [address] ENRICO VALDEZ DO,MPH Assessment 1. Blood pressure elevated without history of HTN (796.2) (R03.0) 2. Depression with anxiety (300.4) (F41.8) 3. Insomnia (780.52) (G47.00) Plan Blood pressure elevated without history of HTN 1. From AmLODIPine Besylate 5 MG Oral Tablet To AmLODIPine Besylate 5 MG Oral Tablet TAKE ONE TABLET BY MOUTH ONCE DAILY Rx By: Jerry Fatima; Dispense: 90 Days ; #:90 Tablet; Refill: 1; For: Blood pressure elevated without history of HTN; PADMINI = N; Print Rx; Last Updated By: Jadyn Riley; 01/22/2016 9:45:09 AM Blood pressure elevated without history of HTN, Depression with anxiety, Hyperlipidemia, Insomnia 2. *A1C In Office; Status:Resulted - Requires Verification; Done: 22Jan2016 10:22AM Performed:In Office; Due:55Edt6782; Last Updated By:Stephanie Winkler; 01/22/2016 10:22:23 AM;Ordered; For:Blood pressure elevated without history of HTN, Depression with anxiety, Hyperlipidemia, Insomnia; Ordered By:Jerry Fatima; 3. QU-CBC ( INCLUDES DIFF/PLT ) 6399; Status:Resulted - Requires Verification; Done: 22Jan2016 10:17AM Performed:[facility]; Due:72Dqz1691;Ordered; For:Blood pressure elevated without history of HTN, Depression with anxiety, Hyperlipidemia, Insomnia; Ordered By:Jerry Fatima; 4. QU-COMPREHENSIVE METABOLIC PANEL 71502; Status:Resulted - Requires Verification; Done: 22Jan2016 10:17AM Performed:[facility]; Due:22Qss4109;Ordered; For:Blood pressure elevated without history of HTN, Depression with anxiety, Hyperlipidemia, Insomnia; Ordered By:Jerry Fatima; 5. QU-LIPID PANEL WITH REFLEX TO DIRECT LDL 24157; Status:Resulted - Requires Verification; Done: 22Jan2016 10:17AM Performed:[facility]; Due:[id number];Ordered; For:Blood pressure elevated without history of HTN, Depression with anxiety, Hyperlipidemia, Insomnia; Ordered By:Jerry Fatima; Depression with anxiety 6. ALPRAZolam 0.5 MG Oral Tablet; TAKE 1 TABLET TWICE DAILY NEEDED Rx By: Jerry Fatima; Dispense: 30 Days ; #:60 Tablet; Refill: 2; For: Depression with anxiety; PADMINI = N; Print Rx Insomnia 7. Zolpidem Tartrate 10 MG Oral Tablet; TAKE ONE TABLET BY MOUTH ONE HOUR BEFORE BEDTIME NEEDED FOR SLEEP Rx By: Jerry aFtima; Dispense: 30 Days ; #:30 Tablet; Refill: 5; For: Insomnia; PADMINI = N; Print Rx Signatures Electronically signed by : Jerry Fatima M.D.; Jan 24 2016 5:03AM ADMINISTRATOR SOCIAL WELFARE (Author) documented in this encounter Plan of Treatment Upcoming Encounters Date Type Department Care Team (Late st Contact Info) Description 03/28/2024 7:30 AM ADMINISTRATOR SOCIAL WELFARE Hospital Encounter [facility] [place] [address] Antwan Stone, DIE[address], [place] [address] 03/28/2024 7:30 AM ADMINISTRATOR SOCIAL WELFARE Anesthesia Event [facility] [address] Shanelle Avila, ELEMENTARY LIBRARIAN [address] [place] [address] 03/28/2024 7:30 AM ADMINISTRATOR SOCIAL WELFARE - 03/28/2024 8:48 AM ADMINISTRATOR SOCIAL WELFARE Surgery [place] [address] Antwan Stone, D[address], [place], [place] [address] REMOVAL OF HARDWARE LEFT FOOT 04/05/2024 8:30 AM ADMINISTRATOR SOCIAL WELFARE Office Visit [facility], [address] [address] Dominick Mccloud MD Three [facility]. [address] [address] Scheduled Procedures Name Priority Associated Diagnoses Date/Ti me REMOVAL PLATE SCREW OR PIN SCHED BY FAX 02/08/24 [facility] PHONE ASSESS 03/28/2024 7:30 AM ADMINISTRATOR SOCIAL WELFARE documented as of this encounter Procedures Procedure Name Priority Date/Time Associated Diagnosis Comments HEMOGLOBIN, GLYCOSYLATED Routine 01/22/2016 10:22 AM ADMINISTRATOR SOCIAL WELFARE LIPID PANEL WITH DIRECT LDL Routine 01/22/2016 10:17 AM ADMINISTRATOR SOCIAL WELFARE COMPREHENSIVE METABOLIC PANEL Routine 01/22/2016 10:17 AM ADMINISTRATOR SOCIAL WELFARE CBC W/DIFF AUTOMATED Routine 01/22/2016 10:17 AM ADMINISTRATOR SOCIAL WELFARE documented in this encounter Results * HEMOGLOBIN, GLYCOSYLATED (01/22/2016 10:22 AM ADMINISTRATOR SOCIAL WELFARE) HGB A1C 5.0 4.2 - 6.5 % HbA1C [facility] TO EPIC CONVERSION 01/22/2016 10:2 2 AM ADMINISTRATOR SOCIAL WELFARE 01/22/2016 10:22 AM ADMINISTRATOR SOCIAL WELFARE Narrative [facility] TO EPIC CONVERSION - 01/22/2016 10:22 AM ADMINISTRATOR SOCIAL WELFARE Result Communication: No patient communication needed at this time us Jerry Fatima MD LABORATORY Final Result [facility] TO EPIC CONVERSION * (ABNORMAL) LIPID PANEL WITH DIRECT LDL (01/22/2016 10:17 AM ADMINISTRATOR SOCIAL WELFARE) CHOLESTEROL 214(H) 125 - 200 mg/dL [facility] TO EPIC CONVERSION HDL 51 > OR = 40 mg/dL [facility] TO [facility]IC CONVERSION TRIGLYCERIDES 152(H) <150 mg/dL [facility] TO EPIC CONVERSION LDL (CALCULATED) 133(H) <130 [facility] TO EPIC CONVERSION Comment: Result Comment: UNITS: mg/dL (calc) Desirable range <100 mg/dL for patients with CHD or diabetes and <70 mg/dL for diabetic patients with known heart disease. CHOL/HDL RATIO 4.2 < OR = 5.0 (calc) [facility] TO EPIC CONVERSION NON HDL CHOLESTEROL 163(H) [facility] TO EPIC CONVERSION Comment: Result Comment: UNITS: mg/dL (calc) Target for non-HDL cholesterol is 30 mg/dL higher than LDL cholesterol target. Test Performed at: [facility] [address] [facility] [place] [place] ??[phone] ? ENRICO VALDEZ DO,MPH 01/22/2016 10:1 7 AM ADMINISTRATOR SOCIAL WELFARE 01/22/2016 10:17 AM ADMINISTRATOR SOCIAL WELFARE Narrative [facility] TO EPIC CONVERSION - 01/23/2016 6:40 AM ADMINISTRATOR SOCIAL WELFARE Result Communication: Call patient with results Jerry Fatima MD LABORATORY Final Result [facility] TO EPIC CONVERSION * CBC W/DIFF AUTOMATED (01/22/2016 10:17 AM ADMINISTRATOR SOCIAL WELFARE) WBC 9.2 3.8 - 10.8 [facility] TO EPIC CONVERSION Comment:Result Comment: UNIT S: Thousand/uL Red Blood Cell Count 4.82 4.20 - 5.80 Million/uL [facility] TO EPIC CONVERSION HGB 13.9 13.2 - 17.1 g/dL [facility] TO EPIC CONVERSION HCT 41.6 38.5 - 50.0 % [facility] TO EPIC CONVERSION MCV 86.4 80.0 - 100.0 fL [facility] TO EPIC CONVERSION MCH (QHPE) 28.9 27.0 - 33.0 pg [facility] TO EPIC CONVERSION MCHC 33.4 32.0 - 36.0 g/dL [facility] TO EPIC CONVERSION RDW (QHPE) 13.6 11.0 - 15.0 % [facility] TO EPIC CONVERSION PLT 215 140 - 400 [facility] T O EPIC CONVERSION Comment:Result Comment: UNIT S: Thousand/uL MPV 11.4 7.5 - 11.5 fL [facility] TO EPIC CONVERSION ABS. NEUTROPHILS 6560 1500 - 7800 cells/uL [facility] TO EPIC CONVERSION ABS. LYMPHOCYTES 1463 850 - 3900 cells/uL [facility] TO EPIC CONVERSION ABS. MONOCYTES 837 200 - 950 cells/uL [facility] TO EPIC CONVERSION ABS. EOSINOPHILS 313 15 - 500 cells/uL [facility] TO EPIC CONVERSION ABS. BASOPHILS 28 0 - 200 cells/uL [facility] TO EPIC CONVERSION SEG NEUTROPHILS 71.3 % [facility] ROUP TO EPIC CONVERSION LYMPHOCYTES 15.9 % [facility] TO EPIC CONVERSION MONOCYTES 9.1 % [facility] T O EPIC CONVERSION EOSINOPHILS 3.4 % [facility] TO EPIC CONVERSION BASOPHILS 0.3 % [facility] T O EPIC CONVERSION Comment: Result Comment: Test Performed at: [facility] [id number] [place] [address] ??[phone] ? ENRICO VALDEZ DO,MPH 01/22/2016 10:1 7 AM ADMINISTRATOR SOCIAL WELFARE 01/22/2016 10:17 AM ADMINISTRATOR SOCIAL WELFARE Narrative [facility] TO EPIC CONVERSION - 01/23/2016 6:40 AM ADMINISTRATOR SOCIAL WELFARE Result Communication: No patient communication needed at this time Jerry Fatima MD LABORATORY Final Result [facility] TO EPIC CONVERSION * COMPREHENSIVE METABOLIC PANEL (01/22/2016 10:17 AM ADMINISTRATOR SOCIAL WELFARE) [facility] GLUCOSE 94 65 - 99 mg/dL [facility] TO EPIC CONVERSION Comment: Result Comment: ? Fasting reference interval BUN 14 7 - 25 mg/dL [facility] TO EPIC CONVERSION CREATININE S/P/B 0.74 0.60 - 1.35 mg/dL [facility] TO EPIC CONVERSION EGFR NON-AFR. AMER. 109 > OR = 60 [facility] TO EPIC CONVERSION Comment:Result Comment: UNIT S: mL/min/1.73m2 EGFR AFR. AMER. 126 > OR = 60 [facility] ROUP TO EPIC CONVERSION Comment:Result Comment: UNIT S: mL/min/1.73m2 BUN CREATININE RATIO NOT APPLICABLE 6 - 22 (calc) [facility] TO EPIC CONVERSION SODIUM S/P/B 136 135 - 146 mmol/L [facility] TO EPIC CONVERSION POTASSIUM S/P/B 4.6 3.5 - 5.3 mmol/L [facility] TO EPIC CONVERSION CHLORIDE S/P/B 102 98 - 110 mmol/L [facility] TO EPIC CONVERSION CO2 26 20 - 31 mmol/L [facility] TO EPIC CONVERSION CALCIUM S/P/B 9.9 8.6 - 10.3 mg/dL [facility] TO EPIC CONVERSION PROTEIN 7.4 6.1 - 8.1 g/dL [facility] TO EPIC CONVERSION ALBUMIN S/P/B 4.4 3.6 - 5.1 g/dL [facility] TO EPIC CONVERSION GLOBULIN 3.0 1.9 - 3.7 [facility] T O EPIC CONVERSION Comment:Result Comment: UNIT S: g/dL (calc) ALBUMIN/GLOBULI N RATIO 1.5 1.0 - 2.5 (calc) [facility] TO EPIC CONVERSION BILIRUBIN TOTAL (FLUID) 0.4 0.2 - 1.2 mg/dL [facility] TO EPIC CONVERSION ALK PHOS 84 40 - 115 U/L [facility] TO EPIC CONVERSION AST 18 10 - 40 U/L [facility] TO EPIC CONVERSION ALT 16 9 - 46 U/L [facility] TO EPIC CONVERSION Comment: Result Comment: Test Performed at: [employer] [facility] ??[phone] ? ENRICO VALDEZ DO,MPH 01/22/2016 10:1 7 AM ADMINISTRATOR SOCIAL WELFARE 01/22/2016 10:17 AM ADMINISTRATOR SOCIAL WELFARE Narrative [facility] TO EPIC CONVERSION - 01/23/2016 6:40 AM ADMINISTRATOR SOCIAL WELFARE Result Communication: No patient communication needed at this time us Jerry Fatima MD LABORATORY Final Result [facility] TO EPIC CONVERSION documented in this encounter Visit Diagnoses Not on filedocumented in this encounter Care Teams Scouring Pads Supervisor Relationship Specialty Start Date End Date Jerry Fatima MD PCP - General 01/11/15 05/31/18 documented as of this encounter
--- OUTSIDE RECORDS SUMMARY | 2024-03-02 03:25 | XMS_ITS | Encounter Summary ---
Author Organization [facility] Address [address] [place] [address]. [place], [place] [address] [place] [address] Care Team Providers Care Field Application Engineer Name Role Phone Jerry Fatima MD Primary Care Provider Yan alvarado Encounter Details Date Type Department Care Team (Latest Contact Info) Description 01/30/2016 Abstract [facility] Medical Group Social History Tobacco Use Types Packs/Day Years Used Date Smoking Tobacco: Never Assessed Sex and Gender Information Value Date Recorded Sex Assigned at Not on file Legal Sex Male 9:00 PM CDT Gender Identity Not on file Sexual Orientation Not on file documented as of this encounter Progress Notes * GALO Fine - 01/30/2016 11:28 AM CST Message Recorded as Task Date: 01/24/2016 06:25 AM, Created By: Jerry Fatima Task Name: Call Patient with results Assigned To: [facility] Kushal Regarding Patient: Kwaku Kulkarni, Status: In Progress Comment: Jerry Fatima - 24 Jan 2016 6:25 AM Patient Jadyn Riley - 24 Jan 2016 2:12 PM TASK REASSIGNED: Previously Assigned To Jerry Fatima Sarah - 24 Jan 2016 2:14 PM TASK REASSIGNED: Previously Assigned To Jerry Fatima Sarah - 24 Jan 2016 5:14 PM TASK REASSIGNED: Previously Assigned To [facility] Odell Fatima patient has not been taking the lipitor due to myalgias , please advise Jerry Fatima - 25 Jan 2016 6:16 AM TASK REASSIGNED: Previously Assigned To Jerry Fatima Is agreeable to the patient, we can try a cholesterol medicine that is typically better tolerated than Lipitor. If he has any muscular side effects, he can stop that medicine and we will just let him rely on diet. pravastatin 10 mg daily, #30, one refill. If he continues that medicine, recheck lipid, AST, CK in six or eight weeks. SaloTorri 25 Jan 2016 1:21 PM TASK EDITED LMTC//af LeongTorri hein 25 Jan 2016 1:22 PM TASK IN PROGRESS Message: Pt updated and rx to pharm, labs ordered and mailed to pt-christy Plan 1. Pravastatin Sodium 10 MG Oral Tablet; TAKE 1 TABLET AT BEDTIME Rx By: Jerry Fatima; Dispense: 30 Days ; #:30 Tablet; Refill: 3; For: Hyperlipidemia; PADMINI = N; Sent To: [facility] # [id number]; Last Updated By: Paulina Marroquin 2. QU-AST 822; Status:Hold For - Manual Activation; Requested for:30Jan2016; Perform:[facility]; Due:31Quo2228;Ordered; For:Hyperlipidemia; Ordered By:Jerry Fatima; 3. QU-CREATINE KINASE, TOTAL 374; Status:Hold For - Manual Activation; Requested for:30Jan2016; Perform:[facility]; Due:[id number];Ordered; For:Hyperlipidemia; Ordered By:Jerry Fatima; 4. QU-LIPID PANEL 7600; Status:Hold For - Manual Activation; Requested for:30Jan2016; Perform:[facility]; Due:[id number];Ordered; For:Hyperlipidemia; Ordered By:Jerry Fatima; Signatures Electronically signed by : Paulina Marroquin R.N.; Feb 04 2016 7:50AM IMMIGRATION LAW SPECIALIST (Author) documented in this encounter Plan of Treatment Upcoming Encounters Date Type Department Care Team (Late st Contact Info) Description 03/28/2024 7:30 AM IMMIGRATION LAW SPECIALIST Hospital Encounter [facility] [place] [address] Antwan Stone DPM [address], [place] [address] 03/28/2024 7:30 AM IMMIGRATION LAW SPECIALIST Anesthesia Event [place] [place] [address] Shanelle Avila, SOLUTIONS OPERATOR [address] [place] [address] 03/28/2024 7:30 AM IMMIGRATION LAW SPECIALIST - 03/28/2024 8:48 AM IMMIGRATION LAW SPECIALIST Surgery [facility] [place] [address] Antwan Stone, DIEGO [address], [place] [address] REMOVAL OF HARDWARE LEFT FOOT 04/05/2024 8:30 AM IMMIGRATION LAW SPECIALIST Office Visit [facility], [facility] [address] [place] [address] Dominick Mccloud MD Three [facility]. [facility] [address] [place] [address] Scheduled Procedures Name Priority Associated Diagnoses Date/Ti me REMOVAL PLATE SCREW OR PIN SCHED BY FAX 02/08/24 [facility] PHONE ASSESS 03/28/2024 7:30 AM IMMIGRATION LAW SPECIALIST documented as of this encounter Visit Diagnoses Not on filedocumented in this encounter Care Teams Field Application Engineer Relationship Specialty Start Date End Date Jerry Fatima MD PCP - General 01/11/15 05/31/18 documented as of this encounter
--- OUTSIDE RECORDS SUMMARY | 2024-03-02 03:25 | XMS_ITS | Encounter Summary ---
Author Organization [facility] Address [address] [place] [address]. [place] [address] [place] [address] Care Team Providers Care Core Sticker Name Role Phone Jerry Fatima MD Primary Care Provider Yan alvarado Encounter Details Date Type Department Care Team (Late st Contact Info) Description 11/17/[address] [facility] [place] [address] , Marge Carreon MD Social History Tobacco Use Types Packs/Day [...] st Contact Info) Description 03/28/2024 7:30 AM GEODETIC SURVEY DIRECTOR Hospital Encounter [facility] [place] [address] Antwan Stone DPM [address], [place] [address] 03/28/2024 7:30 AM GEODETIC SURVEY DIRECTOR Anesthesia Event [facility] [place] [address] Shanelle Avila, [address] [place] [address] 03/28/2024 7:30 AM GEODETIC SURVEY DIRECTOR - 03/28/2024 8:48 AM GEODETIC SURVEY DIRECTOR Surgery [facility] [place] [address] Antwan Stone, DPM [address], [place] [address] REMOVAL OF HARDWARE LEFT FOOT 04/05/2024 8:30 AM GEODETIC SURVEY DIRECTOR Office Visit [facility], [facility] [address] [place], [place] [id number] Dominick Mccloud MD Three [facility]. [facility] [address] [place], [place] [id number] Scheduled Procedures Name Priority Associated Diagnoses Date/Ti me REMOVAL PLATE SCREW OR PIN SCHED BY FAX 02/08/24 [facility] PHONE ASSESS 03/28/2024 7:30 AM GEODETIC SURVEY DIRECTOR documented as of this encounter Visit Diagnoses Not on filedocumented in this encounter Care Teams Core Sticker Relationship Specialty Start Date End Date Jerry Fatima MD PCP - General 01/11/15 05/31/18 documented as of this encounter
--- OUTSIDE RECORDS SUMMARY | 2024-03-02 03:25 | XMS_ITS | Encounter Summary ---
Author Organization [facility] Address [address] [place] [address]. [place], [place] [id number] [place] [address] Care Team Providers Care Care Specialist Name Role Phone Jerry Fatima MD Primary Care Provider Yan alvarado Encounter Details Date Type Department Care Team (Late st Contact Info) Description 09/13/2014 Abstract [facility] Conversion Md, Generic Conversion, Social History [...] Sign Reading Time Taken Comments Blood Pressure 124/90 09/13/2014 1:52 PM CDT Pulse 70 09/13/2014 1:52 PM CDT Temperature - - Respiratory Rate - - Oxygen Saturation - - Inhaled Oxygen Concentration - - Weight 159.9 kg (352 lb 8 oz) 09/13/2014 1:52 PM CDT Height 186.7 cm (6' 1.5 ) 09/13/2014 1:52 PM CDT Body Mass Index 45.88 09/13/2014 1:52 PM CDT documented in this encounter Progress Notes * Marjan Lai NP - 09/13/2014 12:00 AM CDT ACTIVE PROBLEMS ? Alcohol - social ? Caffeine Use ? Family History [for Fhx of Dx Use Dx W/ F Prefix] - coronary artery diseasearthritis ? Hyperlipidemia ? Obesity ? Reported Prior Surgical / Procedural History - appendectomytonsillectomy CHIEF COMPLAINT The Chief Complaint is: 4 week f/u for anxiety and sleeping meds. Go over BW from [employer]. Pt states the medicine has made him a little better. Ambien works sometimes and sometimes it doesnt. REASON FOR VISIT Visit for: Here for follow up on prozac. He does feel like it is helping. Less anxious, no crying spells, not getting upset in traffic. He generally takes xanax once a day. He is taking ambien for sleep a few nights a week. States sometimes it helps, sometimes it does not. CURRENT MEDICATION ? ALPRAZolam 0.5 MG TABS, , 30 days, 0 refills, 1/2-1 tab po bid prn anxiety ? Aspirin 81 MG TABS, Once a day, 0 days, 0 refills ? Fish Oil CAPS, As directed, 0 days, 0 refills, Take 2 capsules daily ? FLUoxetine HCl 40 MG CAPS, Once a day, 30 days, 1 refills ? Magnesium TABS, Once a day, 0 days, 0 refills ? Triamcinolone Acetonide 0.1 % LOTN, As directed, 0 days, 0 refills, apply 2-3 times daily to affected areas ? Zolpidem Tartrate 10 MG TABS, As needed, 30 days, 0 refills, 1 hour before bed prn sleep ? ZyrTEC Allergy 10 MG TABS, Take as directed, 0 days, 0 refills ALLERGIES ? No Known Allergies REVIEW OF SYSTEMS Head: No headache. Cardiovascular: No chest pain or discomfort. Psychological: No anxiety and no depression. Sleep disturbances. PHYSICAL FINDINGS ? Vitals taken 09/13/2014 01:52 pm BP-Sitting 124/90 mmHg Pulse Rate-Sitting 70 bpm Respiration Rate 18 per min Temp-Oral 98 F Height 73.5 in Weight 352 lbs 8 oz Body Mass Index 45.9 kg/m2 Body Surface Area 2.75 m2 Oxygen Saturation 97 % General Appearance: ?? Well developed. ?? Well nourished. Lungs: ?? Normal breath sounds/voice sounds. Cardiovascular: Heart Rate And Rhythm: ?? Normal. Neurological: ?? Oriented to time, place, and person. ASSESSMENT ? Depression ? Primary insomnia ? Anxiety disorder NOS PLAN ? ANXIETY DISORDER NOS ALPRAZolam 0.5 MG TABS, , 30 days, 1 refills, 1/2-1 tab po bid prn anxiety PROzac 40 MG CAPS, Once a day, 30 days, 2 refills, Take with the 20mg tablet PROzac 20 MG CAPS, , 30 days, 2 refills, Take with the 40mg tablet ? Insomnia Zolpidem Tartrate 10 MG TABS, As needed, 30 days, 2 refills, 1 hour before bed prn sleep Increase prozac to 60mg qd Ambien PRN Xanax PRN Follow up in 3 months or sooner if needed. Discussed that I would like him to stay on medicaiton for 6 months and then can discuss stopping. Verbalized understanding. Marjan Lai APN Electronically signed by: Mrajan Lai Date: 09/14/2014 15:40 RY WORKER documented in this encounter Plan of Treatment Upcoming Encounters Date Type Department Care Team (Late st Contact Info) Description 03/28/2024 7:30 AM PANTRY WORKER Hospital Encounter [facility] [place] [address] Antwan Stone DPM [address] [place] [address] 03/28/2024 7:30 AM PANTRY WORKER Anesthesia [place] [address] Shanelle Avila, CMA OR LPN [address] [place] [address] 03/28/2024 7:30 AM PANTRY WORKER - 03/28/2024 8:48 AM PANTRY WORKER Surgery [place] [address] Antwan Stone DPM [address] [place] [address] REMOVAL OF HARDWARE LEFT FOOT 04/05/2024 8:30 AM PANTRY WORKER Office Visit [facility], [address] [place] [address] Dominick Mccloud MD Three [facility]. [facility] [address] [place] [address] Scheduled Procedures Name Priority Associated Diagnoses Date/Ti me REMOVAL PLATE SCREW OR PIN SCHED BY FAX 02/08/24 [facility] PHONE ASSESS 03/28/2024 7:30 AM PANTRY WORKER documented as of this encounter Visit Diagnoses Not on filedocumented in this encounter Care Teams Care Specialist Relationship Specialty Start Date End Date Jerry Fatima MD PCP - General 01/11/15 05/31/18 documented as of this encounter
--- OUTSIDE RECORDS SUMMARY | 2024-03-02 03:25 | XMS_ITS | Encounter Summary ---
Author Organization [facility] Address [address] [place] [address]. [place], [place] [id number] [place] [address] Care Team Providers Care Tool Crib Lead Name Role Phone Jerry Fatima MD Primary Care Provider Yan alvarado Encounter Details Date Type Department Care Team (Latest Contact Info) Description 01/15/2012 Abstract [facility] Roberto Holman MD Social History Tobacco Use Types Packs/Day Years Used Date Smoking Tobacco: Never Assessed Sex and Gender Information Value Date Recorded Sex Assigned at Not on file Legal Sex Male 9:00 PM CDT Gender Identity Not on file Sexual Orientation Not on file documented as of this encounter Last Filed Vital Signs Vital Sign Reading Time Taken Comments Blood Pressure 140/80 01/15/2012 11:05 AM CDT Pulse 74 01/15/2012 11:05 AM CDT Temperature - - Respiratory Rate - - Oxygen Saturation - - Inhaled Oxygen Concentration - - Weight 159.2 kg (351 lb) 01/15/2012 11:05 AM CDT Height 190.5 cm (6' 3 ) 01/15/2012 11:05 AM CDT Body Mass Index 43.87 01/15/2012 11:05 AM CDT documented in this encounter Progress Notes * Roberto Holman MD - 01/15/2012 11:00 AM CDT Chief Complaint Chief Complaint: RECHECK BP History of Present Illness HPI: Here for f/u of of wt and BP. He says he did well with wt watchers and exercise for a while then fell off the bandwagon. He was able to lose wt primarliy with diet, but then put it back on. We had a long talk about his borderline BP and his wt issues and he is aware of the hydraulic technician health concerns of obesity contributing to HTN, DM, heart disease and stroke, and multiple other morbidities. Review of Systems Focused-Male: Constitutional: Normal. ENT: normal. Cardiovascular: no chest pain, no palpitations and no lower extremity edema. Respiratory: no shortness of breath, no wheezing and no shortness of breath during exertion. Gastrointestinal: no abdominal pain, no vomiting and no diarrhea. Genitourinary: no dysuria. Active Problems 1. No Active Problems Social History ?? Never A Smoker Current Meds 1. Aspirin Low Dose 81 MG Oral Tablet; TAKE 1 TABLET DAILY; Therapy: (Recorded:15Jan2012) to 2. Clotrimazole-Betamethasone 1-0.05 % External Cream; apply BID; Therapy: 14Oct2011 to Allergies 1. No Known Drug Allergies No Known Drug Allergies Vitals Vital Signs [Data Includes: Current Encounter] 15Jan2012 11:05AM Heart Rate 74 Respiration 18 Systolic 140 Diastolic 80 BMI Calculated 44.1 BSA Calculated 2.78 Height 6 ft 3 in Weight 351 lb Physical Exam Constitutional General appearance: No acute distress, well appearing and well nourished. Eyes Conjunctiva and lids: No swelling, erythema, or discharge. Pupils and irises: Equal, round and reactive to light. Ears, Nose, Mouth, and Throat Oropharynx: Normal with no erythema, edema, exudate or lesions. Pulmonary Respiratory effort: No increased work of breathing or signs of respiratory distress. Auscultation of lungs: Clear to auscultation. Cardiovascular Auscultation of heart: Normal rate and rhythm, normal S1 and S2, without murmurs. Examination of extremities for edema and/or varicosities: Normal. Abdomen Abdomen: Non-tender, no masses. Liver and spleen: No hepatomegaly or splenomegaly. Lymphatic Palpation of lymph nodes in neck: No lymphadenopathy. Assessment Borderline HTN, overweight Plan Wt loss, salt restriction, exercise and f/u 3 months Signatures Electronically signed by : Roberto Holman M.D.; Jan 15 2012 12:31PM (Author) RONMENTAL TECHNICAL OFFICER documented in this encounter Plan of Treatment Upcoming Encounters Date Type Department Care Team (Late st Contact Info) Description 03/28/2024 7:30 AM ENVIRONMENTAL TECHNICAL OFFICER Hospital Encounter [facility] [place] [address] Antwan Stone, DIEGO [address], [place] [address] 03/28/2024 7:30 AM ENVIRONMENTAL TECHNICAL OFFICER Anesthesia [place] [address] Shanelle Avila, DEPARTMENT SECRETARY [address] [place] [address] 03/28/2024 7:30 AM ENVIRONMENTAL TECHNICAL OFFICER - 03/28/2024 8:48 AM ENVIRONMENTAL TECHNICAL OFFICER Surgery [place] [address] Antwan Stone, DIEGO [address], [place] [address] REMOVAL OF HARDWARE LEFT FOOT 04/05/2024 8:30 AM ENVIRONMENTAL TECHNICAL OFFICER Office Visit [facility], [facility] [address] [place] [address] Dominick Mccloud MD Three [facility]. [facility] [address] [place] [address] Scheduled Procedures Name Priority Associated Diagnoses Date/Ti me REMOVAL PLATE SCREW OR PIN SCHED BY FAX 02/08/24 [facility] PHONE ASSESS 03/28/2024 7:30 AM ENVIRONMENTAL TECHNICAL OFFICER documented as of this encounter Visit Diagnoses Not on filedocumented in this encounter Care Teams Tool Crib Lead Relationship Specialty Start Date End Date Jerry Fatima MD PCP - General 01/11/15 05/31/18 documented as of this encounter
--- OUTSIDE RECORDS SUMMARY | 2024-03-02 03:25 | XMS_ITS | Encounter Summary ---
Author Organization [facility] Address [address] [place] [address]. [place], [place] [address] [place] [address] Care Team Providers Care Tower Observer Name Role Phone Jerry Fatima MD Primary Care Provider Yan alvarado Encounter Details Date Type Department Care Team (Late st Contact Info) Description 08/09/2014 Abstract [facility] Conversion Md, Generic Conversion, Social [...] Sign Reading Time Taken Comments Blood Pressure 124/82 08/09/2014 2:46 PM CDT Pulse 67 08/09/2014 2:46 PM CDT Temperature - - Respiratory Rate - - Oxygen Saturation - - Inhaled Oxygen Concentration - - Weight 165.1 kg (364 lb) 08/09/2014 2:46 PM CDT Height 186.7 cm (6' 1.5 ) 08/09/2014 2:46 PM CDT Body Mass Index 47.37 08/09/2014 2:46 PM CDT documented in this encounter Progress Notes * Marjan Lai NP - 08/09/2014 12:00 AM CDT CHIEF COMPLAINT The Chief Complaint is: Follow up visit. REASON FOR VISIT Visit for: Here for yearly visit. He would like to discuss depression, he has never been depressed before. He lost his job of 13 years at he start of the winter and is now working again making 1/2 the money and is very worried about this. He is not sleeping, becomes very anxious when thinking about bills and has sudden spells of crying for no reason. He has discussed with his and grown child and is open to starting medication to feel better. His lipids were elevated at last visit and he needs those rechecked today. Well: Regular vision and dental exams, has recently improved his diet including more fruits and vegetables, walks about 2 times per week. No tobacco use, occasional alcohol use, no ED concerns. HISTORY OF PRESENT ILLNESS Kwaku Kulkarni is a 49 year old male. ?? No night sweats. ? Recent depression. SOCIAL HISTORY Alcohol: Alcohol use. Alcohol use not interfering with work and alcohol use not disrupting home environment. REVIEW OF SYSTEMS Systemic: Not feeling poorly (malaise). No fever, no chills, and no recent weight change. Head: No headache, no facial pain, and no sinus pain. Neck: No neck pain, no neck stiffness, and no lump or swelling in the neck. Eyes: No vision problems, no itching of the eyes, and no eye pain. No photophobia. Otolaryngeal: No hearing loss, no earache, no tinnitus, no nasal discharge, no epistaxis, no hoarseness, no sore throat, and no bleeding gums. No mouth sores. Breasts: No breast lump, no nipple discharge, and no pain in breast. Cardiovascular: No chest pain or discomfort, no palpitations, and the heart rate was not fast. Pulmonary: No dyspnea, no cough, no hemoptysis, and no wheezing. Gastrointestinal: Normal appetite, no dysphagia, and no heartburn. No nausea, no vomiting, no abdominal pain, and no melena. No diarrhea. Genitourinary: No hematuria and no increase in urinary frequency. No dysuria. No genital lesion. Endocrine: No polydipsia, no excessive sweating, and libido has not changed. Musculoskeletal: No muscle aches, no localized joint pain, and no localized joint stiffness. Neurological: No dizziness, no vertigo, no fainting, no motor disturbances, and no sensory disturbances. Psychological: Anxiety, depression, and sleep disturbances. Skin: No pruritus. No skin lesions. PHYSICAL FINDINGS ? Vitals taken 08/09/2014 02:46 pm BP-Sitting 124/82 mmHg Pulse Rate-Sitting 67 bpm Respiration Rate 18 per min Temp-Oral 97.9 F Height 73.5 in Weight 364 lbs Body Mass Index 47.4 kg/m2 Body Surface Area 2.79 m2 Oxygen Saturation 97 % General Appearance: ?? Well developed obese. ?? Well nourished. Neck: Suppleness: ?? Neck demonstrated no decrease in suppleness. Thyroid: ?? Showed no abnormalities. Cervical Mass: ?? No cervical mass was seen. Eyes: General/bilateral: Extraocular Movements: ?? Normal. Pupils: ?? PERRLA. Ears: General/bilateral: External Auditory Canal: ?? External auditory meatus normal. Tympanic Membrane: ?? Normal. Nose: General/bilateral: Discharge: ?? No nasal discharge seen. Sinus Tenderness: ?? No sinus tenderness. Pharynx: Oropharynx: ?? Normal. Lymph Nodes: ?? Normal. ?? Normal. Chest: ?? No thoracic asymmetry was noted. Lungs: ?? Normal breath sounds/voice sounds. ?? No wheezing was heard. ?? No rhonchi were heard. ?? No rales/crackles were heard. Cardiovascular: Heart Rate And Rhythm: ?? Normal. Murmurs: ?? No murmurs were heard. Back: ?? Normal. Abdomen: Auscultation: ?? Bowel sounds were normal. Palpation: ?? Abdominal non-tender. ?? No mass was palpated in the abdomen. Liver: ?? Not enlarged. Spleen: ?? Not enlarged. Musculoskeletal System: General/bilateral: ?? Overall findings were normal. Neurological: ?? Oriented to time, place, and person. Gait And Stance: ?? Normal. Skin: ?? General appearance was normal. ?? Texture was normal. ?? Turgor was normal. ?? Color and pigmentation were normal. ?? Moisture was normal. ?? Temperature was normal. ?? No skin lesions. ASSESSMENT ? Normal routine history and physical ? Depression COUNSELING/EDUCATION ? Did not discuss concerns about tobacco use ? Discussed concerns about alcohol use PLAN ? Hyperlipidemia, Other or Unspecified Lab: Lipid profile ? Anxiety ALPRAZolam 0.5 MG TABS, , 30 days, 0 refills, 1/2-1 tab po bid prn anxiety ? DEPRESSION FLUoxetine HCl 40 MG CAPS, Once a day, 30 days, 1 refills ? Follow-up visit in 4 weeks to discuss prozac depression and anxiety Well- Encourage exercise, increase fruit and vege increase Depression and anxiety- start prozac [facility], discussed this at [facility] with him and his . Walk 4-5days per week. Hyperlipidemia-Check lipids, I will call him with results. Marjan Lai APN Electronically signed by: Marjan Lai Date: 08/09/2014 16:34 RAL OFFICE REPAIRER SUPERVISOR documented in this encounter Plan of Treatment Upcoming Encounters Date Type Department Care Team (Late st Contact Info) Description 03/28/2024 7:30 AM CENTRAL OFFICE REPAIRER SUPERVISOR Hospital Encounter [facility] [place] [address] Antwan Stone, DIEGO [address], [place] [address] 03/28/2024 7:30 AM CENTRAL OFFICE REPAIRER SUPERVISOR Anesthesia [place] [address] Shanelle Avila, RACK WORKER [address] [place] [address] 03/28/2024 7:30 AM CENTRAL OFFICE REPAIRER SUPERVISOR - 03/28/2024 8:48 AM CENTRAL OFFICE REPAIRER SUPERVISOR Surgery [place] [address] Antwan Stone DPM [address] [place] [address] REMOVAL OF HARDWARE LEFT FOOT 04/05/2024 8:30 AM CENTRAL OFFICE REPAIRER SUPERVISOR Office Visit Darren Chaudhari-O'F allon [facility], [address] [place] [address] Dominick Mccloud MD Three [facility]. [address] [place] [address] Scheduled Procedures Name Priority Associated Diagnoses Date/Ti me REMOVAL PLATE SCREW OR PIN SCHED BY FAX 02/08/24 KAYL[facility] PHONE ASSESS 03/28/2024 7:30 AM CENTRAL OFFICE REPAIRER SUPERVISOR documented as of this encounter Visit Diagnoses Not on filedocumented in this encounter Care Teams Tower Observer Relationship Specialty Start Date End Date Jerry Fatima MD PCP - General 01/11/15 05/31/18 documented as of this encounter
--- OUTSIDE RECORDS SUMMARY | 2024-03-02 03:25 | XMS_ITS | Encounter Summary ---
Author Organization [facility] Address [address] [place] [address]. [place], [place] [address] [place] [address] Care Team Providers Care Log Cooker Name Role Phone Jerry Fatima MD Primary Care Provider Yan alvarado Encounter Details Date Type Department Care Team (Latest Contact Info) Description 01/05/[address] [facility] Jaskaran Lubin MD Social History Tobacco Use Types Packs/Day Years Used Date Smoking Tobacco: Never Assessed Sex and Gender Information Value Date Recorded Sex Assigned at Not on file Legal Sex Male 9:00 PM CDT Gender Identity Not on file Sexual Orientation Not on file documented as of this encounter Last Filed Vital Signs Vital Sign Reading Time Taken Comments Blood Pressure 132/80 01/05/2014 11:18 AM CDT Pulse 65 01/05/2014 11:18 AM CDT Temperature - - Respiratory Rate - - Oxygen Saturation - - Inhaled Oxygen Concentration - - Weight 164.2 kg (362 lb) 01/05/2014 11:18 AM CDT Height 190.5 cm (6' 3 ) 01/05/2014 11:18 AM CDT Body Mass Index 45.25 01/05/2014 11:18 AM CDT documented in this encounter Progress Notes * Jaskaran Lubin MD - 01/05/2014 11:00 AM CDT Reason For Visit Chronic Recheck Visit Chief Complaint Pt is here for checkup needs labs also complaining of some dry itchy skin on back and stomach History of Present Illness The patient is being seen for a health maintenance evaluation. The last health maintenance visit was 1 year(s) ago. Social History: Household members include spouse. He is . 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 Hereports occasional alcohol use. He has never used illicit drugs. General Health: Lifestyle:. He does not have a healthy diet. He has weight concerns. He does not exercise regularly. He consumes alcohol. He denies drug use. Screening: Metabolic screening reviewed and updated. C/o itching on the back. 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 Symptoms: excess weight. No associated symptoms are reported. Review of Systems See HPI for pertinent positives. Constitutional: Normal. Cardiovascular: Normal. Respiratory: Normal. Gastrointestinal: Normal. Neurological: Normal. Active Problems 1. Acute pharyngitis (462) (J02.9) 2. Cough (786.2) (R05) 3. Itching (698.9) (L29.9) Surgical History 1. History of Appendectomy 2. History of Tonsillectomy Family History Father 1. Family history of Benign diastolic hypertension 2. Family history of coronary artery disease (V17.3) (Z82.49) Child 3. No pertinent family history Family History 4. Family history of Arthritis (V17.7) Social History ?? Caffeine use (305.90) (F15.929) ? Never a smoker ?? Social alcohol use (F10.99) Current Meds 1. ZyrTEC Allergy 10 MG Oral Tablet; Therapy: (Recorded:[id number]) to Recorded Allergies 1. No Known Drug Allergies Vitals Recorded by : Judy Chaudhary at 05Jan2014 11:18AM Temperature 98 F Heart Rate 65 Systolic 132 Diastolic 80 O2 Saturation 96 Height 6 ft 3 in Weight 362 lb BMI Calculated 45.25 BSA Calculated 2.82 Physical Exam Constitutional General appearance: No acute distress, well appearing and well nourished. Pulmonary Respiratory effort: No increased work of breathing or signs of respiratory distress. Auscultation of lungs: Clear to auscultation. Cardiovascular Auscultation of heart: Normal rate and rhythm, normal S1 and S2, without murmurs. Examination of extremities for edema and/or varicosities: Normal. Abdomen Abdomen: Abnormal. The abdomen was obese. Assessment 1. Encounter for preventive health examination (V70.0) (Z00.00) 2. Dry skin dermatitis (692.89) (L85.0) 3. Obesity (278.00) (E66.9) Plan Dry skin dermatitis 1. Start: Triamcinolone Acetonide 0.1 % External Lotion; APPLY 2-3 TIMES DAILY TO AFFECTED AREA(S) Rx By: Jaskaran Lubin; Dispense: 0 Days ; #:1 X 60 ML Bottle; Refill: 1; For: Dry skin dermatitis;PADMINI = N; Verified Transmission to Physicians Formula 59509; Last Updated By: KevinVermont Teddy Bear; 01/05/2014 11:29:42 AM Health Maintenance 2. CMP / Liver Status: Active Requested for: 05Jan2014 Perform: [facility] Due: 04Feb2014; Last Updated By: Judy Chaudhary; 01/05/2014 11:43:14 AM; Ordered; For: Health Maintenance; Ordered By: Jaskaran Lubin 3. Lipid Profile Status: Active Requested for: 05Jan2014 Perform: [facility] Due: 04Feb2014; Last Updated By: Judy Chaudhary; 01/05/2014 11:43:14 AM; Ordered; For: Health Maintenance; Ordered By: Jaskaran Lubin fasting labs today triamcinolone cream for the back, not to use more than 2 weeks at a stretch. have advised him to keep his skin moisturized all the time. not to take baths and frequent showers we have discussed about calorie counting, to lose weight he needs to consume [id number] per day further plan basing on the results Signatures Electronically signed by : Jaskaran Lubin M.D.; Jan 05 2014 12:04PM MANAGER ENVIRONMENTAL HEALTH (Author) documented in this encounter Plan of Treatment Upcoming Encounters Date Type Department Care Team (Late st Contact Info) Description 03/28/2024 7:30 AM MANAGER ENVIRONMENTAL HEALTH Hospital Encounter [facility] [place] [address] Antwan Stone DPM [address], [place] [address] 03/28/2024 7:30 AM MANAGER ENVIRONMENTAL HEALTH Anesthesia [place] [address] Shanelle Avila, CUSTOMER LIAISON [address] [place] [address] 03/28/2024 7:30 AM MANAGER ENVIRONMENTAL HEALTH - 03/28/2024 8:48 AM MANAGER ENVIRONMENTAL HEALTH [place] [address] Antwan Stone, DPM [address], [place] [address] REMOVAL OF HARDWARE LEFT FOOT 04/05/2024 8:30 AM MANAGER ENVIRONMENTAL HEALTH Office Visit Darren Chaudhari-O'F allon [facility], [facility] [address] [place], [place] [address] Dominick Mccloud MD Three [facility]. [facility] [address] [place], [place] [address] Scheduled Procedures Name Priority Associated Diagnoses Date/Ti me REMOVAL PLATE SCREW OR PIN SCHED BY FAX 02/08/24 KAYLIE PHONE ASSESS 03/28/2024 7:30 AM MANAGER ENVIRONMENTAL HEALTH documented as of this encounter Procedures Procedure Name Priority Date/Time Associated Diagnosis Comments COMPREHENSIVE METABOLIC PNL W DBIL Routine 01/05/2014 1:46 PM CDT LIPID PANEL Routine 01/05/2014 1:46 PM CDT documented in this encounter Results * (ABNORMAL) LIPID PANEL (01/05/2014 1:46 PM CDT) CHOLESTEROL 230(H) <200 mg/dL [facility] TO EPIC CONVERSION TRIGLYCERIDES 170(H) <150 mg/dL [facility] TO [facility] CONVERSION HDL 51(L) >59 mg/dL [facility] TO [facility] CONVERSION LDL (CALCULATED) 145(H) <100 mg/dL [facility] TO [facility] CONVERSION NON HDL CHOLESTEROL 179(H) <130 mg/dL [facility] TO EPIC CONVERSION Comment: Result Comment: NOTE: WHEN THE TRIGLYCERIDES ARE >200 mg/dL, NON HDL C IS A SECONDARY TARGET OF THERAPY, WITH A GOAL 30 mg/dL HIGHER THAN THE IDENTIFIED LDL C GOAL. CHOL/HDL RATIO 4.5 0.0 - 4.5 [facility] TO [facility]IC CONVERSION VLDL CHOLESTEROL (LMP) 34 5 - 55 mg/dL [facility] TO EPIC CONVERSION LIPID INTERPRETATION NIH CONCENSUS REPORT RECOMMENDATI ONS: ?ADULT ?CHILD ??LOW RISK: ?CHOLESTERO L ? <200 ? <170 ?TRIGLYCERI DE ?<150 ?--- ?HDL ? >=60 ?--- ?LDL ? <100 ? <110 ?BORDERLINE : ?CHOLESTERO L ? 200-239 ?? 170-199 ?TRIGLYCERI DE ?150-199 ? --- ?HDL ?40-59 ?--- ?LDL ? 100-159 ?? 110-129 ?HIGH RISK: ?CHOLESTERO L ? >=240 ?>=200 ?TRIGLYCERI DE ?>=200 ? --- ?HDL ?<40 ?--- ?LDL ? >=160 ?>=130 [facility] TO EPIC CONVERSION 01/05/2014 1:46 PM CDT 01/05/2014 1:46 PM CDT Narrative [facility] TO [facility] CONVERSION - 01/05/2014 9:19 PM CDT Result Communication: Call patient with results us Jaskaran Lubin MD LABORATORY Final Resul t [facility] TO EPIC CONVERSION * (ABNORMAL) COMPREHENSIVE METABOLIC PNL W DBIL (01/05/2014 1:46 PM CDT) GLUCOSE 82 70 - 99 mg/dL [facility] TO EPIC CONVERSION BUN 13 8 - 23 mg/dL [facility] TO EP[facility] CONVERSION CREATININE S/P/B 0.76 0.70 - 1.20 mg/dL [facility] TO EPIC CONVERSION SODIUM S/P/B 139 136 - 145 mmol/L [facility] TO EPIC CONVERSION POTASSIUM S/P/B 4.4 3.5 - 5.1 mmol/L [facility] TO EPIC CONVERSION CHLORIDE S/P/B 100 98 - 107 mmol/L [facility] TO EPIC CONVERSION CO2 24 22 - 29 mmol/L [facility] TO EPIC CONVERSION ANION GAP 19 8 - 20 [facility] T O EPIC CONVERSION CALCIUM S/P/B 10.1 8.6 - 10.2 mg/dL [facility] TO EPIC CONVERSION BILIRUBIN TOTAL S/P/B <0.1(L) 0.2 - 1.2 mg/dL [facility] TO EPIC CONVERSION BILIRUBIN DIRECT S/P/B <0.20 0.0 - 0.3 mg/dL [facility] TO EPIC CONVERSION BILIRUBIN INDIRECT S/P/B NOT CALCULATED 0.0 - 0.9 mg/dL [facility] TO EPIC CONVERSION TOTAL PROTEIN S/P/B 7.8 6.4 - 8.3 g/dL [facility] TO EPIC CONVERSION ALBUMIN S/P/B 4.4 3.5 - 5.2 g/dL [facility] TO EPIC CONVERSION AST 22 0 - 40 IU/L [facility] TO EPIC CONVERSION ALT 20 0 - 41 IU/L [facility] TO EPIC CONVERSION ALKALINE PHOSPHATASE S/P/B 88 40 - 129 IU/L [facility] TO EPIC CONVERSION A/G RATIO 1.3 1.0 - 2.0 [facility] TO EPIC CONVERSION GFR ESTIMATE >60 >60 mL/min/1 .73m'2 [facility] TO EPIC CONVERSION EGFR AFR. AMER. >60 NOTE: eGFR is not calculated for patients <18 years of age. This is an estimated GFR (CKD EPI) and should not be used for calculating drug doses. >60 mL/min/1 .73m'2 [facility] TO EPIC CONVERSION GLOBULIN 3.4 2.3 - 3.6 g/dL [facility] TO EPIC CONVERSION 01/05/2014 1:46 PM CDT 01/05/2014 1:46 PM CDT Narrative [facility] TO EPIC CONVERSION - 01/06/2014 3:14 AM CDT Result Communication: Call patient with results us Jaskaran Lubin MD LABORATORY Final Resul t [facility] TO EPIC CONVERSION documented in this encounter Visit Diagnoses Not on filedocumented in this encounter Care Teams Log Cooker Relationship Specialty Start Date End Date Jerry Fatima MD PCP - General 01/11/15 05/31/18 documented as of this encounter
--- OUTSIDE RECORDS SUMMARY | 2024-03-02 03:25 | XMS_ITS | Encounter Summary ---
Author Organization [facility] Address [address] [place] [address]. [place], [place] [address] [place] [address] Care Team Providers Care Cistern Room Operator Name Role Phone Jerry Fatima MD Primary Care Provider Yan alvarado Encounter Details Date Type Department Care Team (Latest Contact Info) Description 12/19/2014 Abstract [facility] Social History Tobacco [...] st Contact Info) Description 03/28/2024 7:30 AM FARM PLANNER Hospital Encounter [facility] [place] [address] Antwan Stone, DIEGO [address], [place] [address] 03/28/2024 7:30 AM FARM PLANNER Anesthesia [place] [address] Shanelle Avila, GEOTECHNICAL FIELD TECHNICIAN [address] [place] [address] 03/28/2024 7:30 AM FARM PLANNER - 03/28/2024 8:48 AM FARM PLANNER Surgery [facility] [place] [address] Antwan Stone DPM [address], [place] [address] REMOVAL OF HARDWARE LEFT FOOT 04/05/2024 8:30 AM FARM PLANNER Office Visit Darren Chaudhari-O'F allon THREE [facility], [email or web address] [address] [place] [address] Dominick Mccloud MD Three [facility]. [facility] [[email or web address] [address] [place] [address] Scheduled Procedures Name Priority Associated Diagnoses Date/Ti me REMOVAL PLATE SCREW OR PIN SCHED BY FAX 02/08/24 [facility] PHONE ASSESS 03/28/2024 7:30 AM FARM PLANNER documented as of this encounter Visit Diagnoses Not on filedocumented in this encounter Care Teams Cistern Room Operator Relationship Specialty Start Date End Date Jerry Fatima MD PCP - General 01/11/15 05/31/18 documented as of this encounter
--- OUTSIDE RECORDS SUMMARY | 2024-03-02 03:25 | XMS_ITS | Encounter Summary ---
Author Organization [facility] Address [address] [place] [address]. [place] [address] [place] [address] Care Team Providers Care Trailer Assembler Name Role Phone Jerry Fatima MD Primary Care Provider Yan alvarado Encounter Details Date Type Department Care Team (Late st Contact Info) Description 11/09/2008 Abstract [place] [address] Marge Bansal MD Social History Tobacco Use Types Packs/Day [...] st Contact Info) Description 03/28/2024 7:30 AM DIRECTOR PHYSICAL THERAPY Hospital [facility] [place] [address] Antwan Stone DPM [address], [place] [address] 03/28/2024 7:30 AM DIRECTOR PHYSICAL THERAPY Anesthesia [place] [address] Shanelle Avila, PSYCHOLOGICAL OPERATIONS OFFICER [address] [place] [address] 03/28/2024 7:30 AM DIRECTOR PHYSICAL THERAPY - 03/28/2024 8:48 AM DIRECTOR PHYSICAL THERAPY Surgery [facility] [place] [address] Antwan Stone, DPM [address], [place] [address] REMOVAL OF HARDWARE LEFT FOOT 04/05/2024 8:30 AM DIRECTOR PHYSICAL THERAPY Office Visit [facility] THREE [facility], [facility] [address] [place], [place] [address] Dominick Mccloud MD Three [facility]. [facility] [address] [place], [place] [address] Scheduled Procedures Name Priority Associated Diagnoses Date/Ti me REMOVAL PLATE SCREW OR PIN SCHED BY FAX 02/08/24 [facility] PHONE ASSESS 03/28/2024 7:30 AM DIRECTOR PHYSICAL THERAPY documented as of this encounter Visit Diagnoses Not on filedocumented in this encounter Care Teams Trailer Assembler Relationship Specialty Start Date End Date Jerry Fatima MD PCP - General 01/11/15 05/31/18 documented as of this encounter
--- OUTSIDE RECORDS SUMMARY | 2024-03-02 03:25 | XMS_ITS | Encounter Summary ---
Author Organization [facility] Address [address] [place] [address]. [place], [place] [address] [place] [address] Care Team Providers Care Fine Unhairer Name Role Phone Jerry Fatima MD Primary Care Provider Yan alvarado Encounter Details Date Type Department Care Team (Late st Contact Info) Description 08/09/2014 Abstract [facility] Conversion Md, Generic Conversion, Social [...] st Contact Info) Description 03/28/2024 7:30 AM ESCAPEMENT MATCHER Hospital Encounter [facility] [place] [place] [address] Antwan Stone, DIEGO [address] [place] [address] 03/28/2024 7:30 AM ESCAPEMENT MATCHER Anesthesia Event [place] [address] Shanelle Avila, NURSING STUDENT [address] [place] [address] 03/28/2024 7:30 AM ESCAPEMENT MATCHER - 03/28/2024 8:48 AM ESCAPEMENT MATCHER Surgery [facility] [place] [address] Antwan Stone DPM [address] [place] [address] REMOVAL OF HARDWARE LEFT FOOT 04/05/2024 8:30 AM ESCAPEMENT MATCHER Office Visit Darren Chaudhari-O'F allon THREE [facility], [facility] [address] [place] [address] Dominick Mccloud MD Three [facility]. [facility] [address] [place] [address] Scheduled Procedures Name Priority Associated Diagnoses Date/Ti me REMOVAL PLATE SCREW OR PIN SCHED BY FAX 02/08/24 [facility] PHONE ASSESS 03/28/2024 7:30 AM ESCAPEMENT MATCHER documented as of this encounter Visit Diagnoses Not on filedocumented in this encounter Care Teams Fine Unhairer Relationship Specialty Start Date End Date Jerry Fatima MD PCP - General 01/11/15 05/31/18 documented as of this encounter
--- OUTSIDE RECORDS SUMMARY | 2024-03-02 03:25 | XMS_ITS | Encounter Summary ---
Author Organization [facility] Address [address] [place] [address]. [place], [place] [address] [place] [address] Care Team Providers Care Instructor [employer] Name Role Phone Mo Salamanca MD Primary Care Provider Yan alvarado Encounter Details Date Type Department Care Team (Latest Contact Info) Description 01/11/2015 Abstract [facility] Mo Salamanca MD Social History Tobacco Use Types Packs/Day [...] st Contact Info) Description 03/28/2024 7:30 AM CORRECTIONAL GUARD Hospital Encounter [facility] [place] [place] [address] Antwan Stone, DIEGO [address] [place] [address] 03/28/2024 7:30 AM CORRECTIONAL GUARD Anesthesia [place] [address] Shanelle Avila, SENIOR MATERIALS SCIENTIST [address] [place] [address] 03/28/2024 7:30 AM CORRECTIONAL GUARD - 03/28/2024 8:48 AM CORRECTIONAL GUARD Surgery [facility] OR [address] [facility] [place] [address] Antwan Stone, DIEGO [address], [place] [address] REMOVAL OF HARDWARE LEFT FOOT 04/05/2024 8:30 AM CORRECTIONAL GUARD Office [facility] [address] [place] [address] Dominick Mccloud MD Three [facility]. [facility] [address] [place] [address] Scheduled Procedures Name Priority Associated Diagnoses Date/Ti me REMOVAL PLATE SCREW OR PIN SCHED BY FAX 02/08/24 [facility] PHONE ASSESS 03/28/2024 7:30 AM CORRECTIONAL GUARD documented as of this encounter Procedures Procedure Name Priority Date/Time Associated Diagnosis Comments US ABD COMPLETE Routine 01/11/2015 8:50 AM CDT documented in this encounter Results * US ABD COMPLETE (01/11/2015 8:50 AM CDT) Anatomical Region Laterality Modality Abdomen Ultrasound 01/11/2015 8:50 AM CDT 01/11/2015 8:50 AM CDT Narrative 01/11/2015 2:49 PM CDT [facility] ? ADMIT/SERVICE DATE: 01/11/15 ?? ACCT: [id number] ?DISCHARGE DATE: ?? : 1965 ??SEX: M ?ORD SITE: [facility] ?? PT TYPE: REG CLI ? ORDERING MD: MO SALAMANCA MD ? STUDY DATE ? REPORT # ?ORDER # ? EXT ORDER ID ?? 01/11/15 ? [id number] ? [id number] ?[id number] ? PROC CODE: ? ABDCMP ? PROCEDURE DESCRIPTION: ?? US ABDOMEN COMPLETE ? IMPRESSION: ?? 1. ?? NO GALLSTONES. NORMAL SIZE COMMON BILE DUCT. ?? 2. ??NO HYDRONEPHROSIS. ?? 3. ??ABDOMINAL AORTA INCOMPLETELY VISUALIZED DUE TO OVERLYING BOWEL. NO ?? ANEURYSM IDENTIFIED. ?? 4. ??PANCREAS IS OBSCURED BY BOWEL. ? EXAMINATION: ULTRASOUND ABDOMEN COMPLETE ? EXAM DATE/TIME: 01/11/2015 7:00 AM ? CLINICAL HISTORY: ABDOMINAL PAIN. RIGHT FLANK PAIN. BACK PAIN. PRIOR ?? APPENDECTOMY. CHEST PAIN. SYMPTOMS FOR ONE WEEK. ? COMPARISON: NONE ? TECHNIQUE: AN ULTRASOUND EXAMINATION OF THE ABDOMEN WAS PERFORMED TO ?? ASSESS GRAYSCALE APPEARANCE, COLOR-FLOW CHARACTERISTICS AND SPECTRAL ?? DOPPLER ANALYSIS. ? FINDINGS: ?? LIVER: ?? NORMAL ECHOGENICITY. NO MASSES. NO INTRAHEPATIC DUCT ?? DILATATION. ? SPLEEN: NORMAL SIZE AND ECHOGENICITY. ?? PANCREAS: PANCREAS IS NOT SEEN. IT IS OBSCURED BY OVERLYING BOWEL. ? PORTAL VEIN: SPECTRAL ANALYSIS REVEALS NORMAL HEPATOPEDAL FLOW. ?? ABDOMINAL AORTA / INFERIOR VENA CAVA: MILD ECTASIA OF THE PROXIMAL ?? ABDOMINAL AORTA, MEASURING UP TO 2.4 CM. MID AND DISTAL ABDOMINAL AORTA ?? ARE NOT COMPLETELY DEFINED DUE TO OVERLYING BOWEL. NO ANEURYSM ?? IDENTIFIED. OBSERVED PORTIONS OF THE INFERIOR VENA CAVA SHOW NO EVIDENCE ?? OF OBSTRUCTION. ? GALLBLADDER: NO WALL THICKENING, CHOLECYSTIC FLUID, STONES OR SLUDGE. ?? NEGATIVE SONOGRAPHIC MATA''S SIGN. ? COMMON BILE DUCT ??IS PARTIALLY DEFINED. IT MEASURES UP TO 4.9 MM. ? RIGHT KIDNEY: MEASURES 11.8 CM. NORMAL ECHOGENICITY. NORMAL CORTICAL ?? PERFUSION. ?? NO MASSES, CYSTS, STONES OR HYDRONEPHROSIS. ?? LEFT KIDNEY: MEASURES 10.8 CM. NORMAL ECHOGENICITY. NORMAL CORTICAL ?? PERFUSION. ?? NO MASSES, CYSTS, STONES OR HYDRONEPHROSIS. ? OTHER FINDINGS: NO ASCITES. ? ELECTRONICALLY SIGNED BY: LALITA HEAD01/11/2015 8:54 AM ? Procedure Note Marge Bansal MD - 01/07/2018 [facility] ADMIT/SERVICE DATE:01/11/15 ACCT: [id number] DISCHARGE DATE: : 1965 SEX: M ORD SITE: [facility] PT TYPE: REG CLI ORDERING MD:MO SALAMANCA MD STUDY DATE REPORT # ORDER # EXT ORDER ID 01/11/15 [id number] PROC CODE: ABDCMP PROCEDURE DESCRIPTION: US ABDOMEN COMPLETE IMPRESSION: 1. NO GALLSTONES. NORMAL SIZE COMMON BILE DUCT. 2. NO HYDRONEPHROSIS. 3. ABDOMINAL AORTA INCOMPLETELY VISUALIZED DUE TO OVERLYING BOWEL. NO ANEURYSM IDENTIFIED. 4. PANCREAS IS OBSCURED BY BOWEL. EXAMINATION: ULTRASOUND ABDOMEN COMPLETE EXAM DATE/TIME: 01/11/2015 7:00 AM CLINICAL HISTORY: ABDOMINAL PAIN. RIGHT FLANK PAIN. BACK PAIN. PRIOR APPENDECTOMY. CHEST PAIN. SYMPTOMS FOR ONE WEEK. COMPARISON: NONE TECHNIQUE: AN ULTRASOUND EXAMINATION OF THE ABDOMEN WAS PERFORMED TO ASSESS GRAYSCALE APPEARANCE, COLOR-FLOW CHARACTERISTICS AND SPECTRAL DOPPLER ANALYSIS. FINDINGS: LIVER: NORMAL ECHOGENICITY. NO MASSES. NO INTRAHEPATIC DUCT DILATATION. SPLEEN: NORMAL SIZE AND ECHOGENICITY. PANCREAS: PANCREAS IS NOT SEEN. IT IS OBSCURED BY OVERLYING BOWEL. PORTAL VEIN: SPECTRAL ANALYSIS REVEALS NORMAL HEPATOPEDAL FLOW. ABDOMINAL AORTA / INFERIOR VENA CAVA: MILD ECTASIA OF THE PROXIMAL ABDOMINAL AORTA, MEASURING UP TO 2.4 CM. MID AND DISTAL ABDOMINAL AORTA ARE NOT COMPLETELY DEFINED DUE TO OVERLYING BOWEL. NO ANEURYSM IDENTIFIED. OBSERVED PORTIONS OF THE INFERIOR VENA CAVA SHOW NO EVIDENCE OF OBSTRUCTION. GALLBLADDER: NO WALL THICKENING, CHOLECYSTIC FLUID, STONES OR SLUDGE. NEGATIVE SONOGRAPHIC MATA''S SIGN. COMMON BILE DUCT IS PARTIALLY DEFINED. IT MEASURES UP TO 4.9 MM. RIGHT KIDNEY: MEASURES 11.8 CM. NORMAL ECHOGENICITY. NORMAL CORTICAL PERFUSION. NO MASSES, CYSTS, STONES OR HYDRONEPHROSIS. LEFT KIDNEY: MEASURES 10.8 CM. NORMAL ECHOGENICITY. NORMAL CORTICAL PERFUSION. NO MASSES, CYSTS, STONES OR HYDRONEPHROSIS. OTHER FINDINGS: NO ASCITES. ELECTRONICALLY SIGNED BY: LALITA HEAD01/11/2015 8:54 AM Yakov Bello MD ULTRASOUND Final Result documented in this encounter Visit Diagnoses Not on filedocumented in this encounter Care Teams Instructor [employer] Relationship Specialty Start Date End Date Mo Salamanca MD PCP - General 01/11/15 05/31/18 documented as of this encounter
--- OUTSIDE RECORDS SUMMARY | 2024-03-02 03:25 | XMS_ITS | Encounter Summary ---
Author Organization [facility] Address [address] [place] [address]. [place], [place] [address] [facility] [address] Care Team Providers Care Apple Peeler Operator Name Role Phone Jerry Fatima MD Primary Care Provider Yan alvarado Encounter Details Date Type Department Care Team (Latest Contact Info) Description 11/07/2013 Abstract [facility] Medical Group Jaskaran Lubin MD Social History [...] Sign Reading Time Taken Comments Blood Pressure 154/84 11/07/2013 2:08 PM CDT Pulse 66 11/07/2013 2:08 PM CDT Temperature - - Respiratory Rate - - Oxygen Saturation - - Inhaled Oxygen Concentration - - Weight 161.5 kg (356 lb) 11/07/2013 2:08 PM CDT Height 190.5 cm (6' 3 ) 11/07/2013 2:08 PM CDT Body Mass Index 44.5 11/07/2013 2:08 PM CDT documented in this encounter Progress Notes * Jaskaran Lubin MD - 11/07/2013 2:00 PM CDT Reason For Visit Reason For Visit: Acute Visit Chief Complaint 1. Cold Symptoms 2. Cough 3. Sore Throat Pt here c/o cough congestion sore throat pt states Sx started approx 2 weeks ago and have gotten slightly worse pt has been taking Zyrtec with no to minimal relief History of Present Illness Kwaku Kulkarni presents with complaints of gradual onset of constant episodes of moderate sore throat, described as burning, non-radiating. Episodes started 2 weeks ago. Symptoms are not improved by antihistamines and decongestants. Symptoms are worsening. Associated symptoms include odynophagia, nasal congestion, postnasal drainage, swollen glands, headache and fatigue, but no dysphagia, no fever, no chills, no nausea, no vomiting, no cough, no rash and no anorexia. Kwaku Kulkarni presents with complaints of cold symptoms. Kwaku Kulkarni presents with complaints of cough. Review of Systems See HPI for pertinent positives. Constitutional: feeling poorly, feeling tired and headache, but no fever. ENT: earache, sore throat and hoarseness. Cardiovascular: Normal. Respiratory: cough, but no shortness of breath, no wheezing and no shortness of breath during exertion. Gastrointestinal: Normal. Neurological: Normal. Active Problems 1. Cough (786.2) (R05) 2. Itching (698.9) (L29.9) Past Medical History Patient indicats no significant past medical history. Surgical History 1. History of Appendectomy 2. History of Tonsillectomy Family History Family History 1. Family history of Arthritis (V17.7) Social History ?? Caffeine use (305.90) (F15.929) ? Never a smoker ?? Social alcohol use (F10.99) Current Meds 1. ZyrTEC Allergy 10 MG Oral Tablet; Therapy: (Recorded:[id number]) to Recorded Dispense: 0 Days ; #: Sufficient TABS; Refill: 0; PADMINI = N; Record; Last Updated By: Adilene Leong; 11/07/2013 2:12:18 PM Allergies 1. No Known Drug Allergies Recorded By: Keke Burr; 01/15/2012 11:06:49 AM Vitals Vital Signs [Data Includes: Current Encounter] Recorded by : Adielne Leong at [id number] 02:08PM Temperature 98.1 F Heart Rate 66 Respiration 18 Systolic 154 Diastolic 84 O2 Saturation 97 Height 6 ft 3 in Weight 356 lb BMI Calculated 44.5 BSA Calculated 2.8 Physical Exam Constitutional General appearance: No acute distress, well appearing and well nourished. Head and Face Head and face: Normal. Palpation of the face and sinuses: No sinus tenderness. Ears, Nose, Mouth, and Throat External inspection of ears and nose: Normal. Otoscopic examination: Tympanic membranes translucent with normal light reflex. Canals patent without erythema. Lips, teeth, and gums: Normal, good dentition. Oropharynx: Abnormal. The posterior pharynx was erythematous, but did not have an exudate. Pulmonary Respiratory effort: No increased work of breathing or signs of respiratory distress. Auscultation of lungs: Clear to auscultation. Cardiovascular Auscultation of heart: Normal rate and rhythm, normal S1 and S2, no murmurs. Peripheral vascular exam: Normal. Psychiatric Orientation to person, place and time: Normal. Mood and affect: Normal. Assessment 1. Acute pharyngitis (462) (J02.9) Plan Acute pharyngitis 1. Start: Azithromycin 250 MG Oral Tablet; 2 tabs today and 1 tab daily for the next 4 days Rx By: Jaskaran Lubin; Dispense: 0 Days ; #:6 Tablet; Refill: 0; For: Acute pharyngitis; PADMINI = N; Verified Transmission to [facility] [address]; Last Updated By: [facility]; 11/07/2013 2:23:04 PM 2. Gargle with warm salt water for 5 minutes every 4 hours. Status: Complete Done: [id number] 02:28PM Ordered; For: Acute pharyngitis; Ordered By: Jaskaran Lubin azithromycin salt water gargling zyrtec schedule a yearly physical to call if symptoms don?t get better Signatures Electronically signed by : Jaskaran Lubin M.D.; Nov 07 2013 2:29PM RN CVOR (Author) documented in this encounter Plan of Treatment Upcoming Encounters Date Type Department Care Team (Late st Contact Info) Description 03/28/2024 7:30 AM RN CVOR Hospital Encounter [facility] [place] [address] Antwan Stone, DIEGO [address], [place] [address] 03/28/2024 7:30 AM RN CVOR Anesthesia [place] [address] Shanelle Avila, BUSINESS LAWYER [address] [place] [address] 03/28/2024 7:30 AM RN CVOR - 03/28/2024 8:48 AM RN CVOR [place] [address] Antwan Stone, DPM [address] [place] [address] REMOVAL OF HARDWARE LEFT FOOT 04/05/2024 8:30 AM RN CVOR Office Visit [facility] THREE [facility], [facility] [address] [place] [address] Dominick Mccloud MD Three [facility]. [facility] [address] [place] [address] Scheduled Procedures Name Priority Associated Diagnoses Date/Ti me REMOVAL PLATE SCREW OR PIN SCHED BY FAX 02/08/24 [facility] PHONE ASSESS 03/28/2024 7:30 AM RN CVOR documented as of this encounter Visit Diagnoses Not on filedocumented in this encounter Care Teams Apple Peeler Operator Relationship Specialty Start Date End Date Jerry Fatima MD PCP - General 01/11/15 05/31/18 documented as of this encounter
--- OUTSIDE RECORDS SUMMARY | 2024-03-02 03:25 | XMS_ITS | Encounter Summary ---
Author Organization [facility] Address [address] [place] [address]. [place] [address] [place] [address] Care Team Providers Care Senior Branch Manager Name Role Phone Jerry Fatima MD Primary Care Provider Yan alvarado Encounter Details Date Type Department Care Team (Late st Contact Info) Description 01/05/[address] [place] [address] Jaskaran Lubin MD Social History Tobacco Use [...] st Contact Info) Description 03/28/2024 7:30 AM EYE DROPPER ASSEMBLER Hospital Encounter [facility] [place] [address] Antwan Stone, DIEGO [address] [place] [address] 03/28/2024 7:30 AM EYE DROPPER ASSEMBLER Anesthesia Event [facility] OR ONE [facility] [address] Shanelle Avila, STEAMBOAT CAPTAIN [address] [place] [address] 03/28/2024 7:30 AM EYE DROPPER ASSEMBLER - 03/28/2024 8:48 AM EYE DROPPER ASSEMBLER Surgery [place] [address] Antwan Stone, DPM [address] [place] [address] REMOVAL OF HARDWARE LEFT FOOT 04/05/2024 8:30 AM EYE DROPPER ASSEMBLER Office Visit [facility] THREE [facility], [facility] [address] [place] [address] Dominick Mccloud MD Three [facility]. [facility] [address] [place] [address] Scheduled Procedures Name Priority Associated Diagnoses Date/Ti me REMOVAL PLATE SCREW OR PIN SCHED BY FAX 02/08/24 [facility] PHONE ASSESS 03/28/2024 7:30 AM EYE DROPPER ASSEMBLER documented as of this encounter Visit Diagnoses Diagnosis Routine general medical examination at a health care facility Painful orthopaedic hardware (CMS/HCC)- Primary documented in this encounter Care Teams Senior Branch Manager Relationship Specialty Start Date End Date Jerry Fatima MD PCP - General 01/11/15 05/31/18 documented as of this encounter
--- OUTSIDE RECORDS SUMMARY | 2024-03-02 03:25 | XMS_ITS | Encounter Summary ---
Author Organization [facility] Address [address] [place] [address]. [place], [place] [address] [place] [address] Care Team Providers Care Dye Winch Operator Name Role Phone Jerry Fatima MD Primary Care Provider Yan alvarado Encounter Details Date Type Department Care Team (Latest Contact Info) Description 12/18/2014 Abstract [facility] Medical Group Social History Tobacco Use [...] st Contact Info) Description 03/28/2024 7:30 AM COMPENSATION ASSOCIATE Hospital Encounter [facility] [place] [address] Antwan Stone, DIEGO [address], [place] [address] 03/28/2024 7:30 AM COMPENSATION ASSOCIATE Anesthesia [place] [address] Shanelle Avila, CLINICAL RESEARCH MONITOR [address] [place] [address] 03/28/2024 7:30 AM COMPENSATION ASSOCIATE - 03/28/2024 8:48 AM COMPENSATION ASSOCIATE Surgery [facility] [address] Antwan Stone DPM [address] [place] [address] REMOVAL OF HARDWARE LEFT FOOT 04/05/2024 8:30 AM COMPENSATION ASSOCIATE Office Visit [facility] Chaudhari-O'F allon THREE [facility], [facility] [address] [place] [address] Dominick Mccloud MD Three [facility]. [facility] [address] [place] [address] Scheduled Procedures Name Priority Associated Diagnoses Date/Ti me REMOVAL PLATE SCREW OR PIN SCHED BY FAX 02/08/24 [facility] PHONE ASSESS 03/28/2024 7:30 AM COMPENSATION ASSOCIATE documented as of this encounter Visit Diagnoses Not on filedocumented in this encounter Care Teams Dye Winch Operator Relationship Specialty Start Date End Date Jerry Fatima MD PCP - General 01/11/15 05/31/18 documented as of this encounter
--- OUTSIDE RECORDS SUMMARY | 2024-03-02 03:25 | XMS_ITS | Encounter Summary ---
Author Organization [facility] Address [address] [place] [address]. [place], [place] [address] [place] [address] Care Team Providers Care Coke Loader Name Role Phone Jerry Fatima MD Primary Care Provider Yan alvarado Encounter Details Date Type Department Care Team (Late st Contact Info) Description 12/12/2014 Abstract [facility] Medical Group Family & Internal Medicine [address] [phone] Jerry Fatima MD Social History Tobacco Use Types Packs/Day Years Used Date Smoking Tobacco: Never Assessed Sex and Gender Information Value Date Recorded Sex Assigned at Not on file Legal Sex Male 9:00 PM CDT Gender Identity Not on file Sexual Orientation Not on file documented as of this encounter Last Filed Vital Signs Vital Sign Reading Time Taken Comments Blood Pressure 119/67 12/12/2014 2:02 PM CDT Pulse 60 12/12/2014 2:02 PM CDT Temperature - - Respiratory Rate - - Oxygen Saturation - - Inhaled Oxygen Concentration - - Weight 150.1 kg (331 lb) 12/12/2014 2:02 PM CDT Height 190.5 cm (6' 3 ) 12/12/2014 2:02 PM CDT Body Mass Index 41.37 12/12/2014 2:02 PM CDT documented in this encounter Progress Notes * Jerry Fatima MD - 12/12/2014 2:00 PM CDT Chief Complaint Patient is here to follow up after hospitalization for chest pain. History of Present Illness HPI Free Text: Here for followup of a hospital stay one week ago. He complained of chest pain and shortness of breath but had a negative limited cardiac workup. He was prescribed cholesterol and blood pressure medicine but started neither of these. He has had no similar symptoms since discharge. He continues his Prozac with good moods and would like to decrease that medicine. His zolpidem works well for sleep. TCM: Date of Hospital/HI Discharge: 12/06/2014 Date of Contact: 12/06/2014 Individual Contacted: Faith Contacted by: Cris Reviewed/ Addressed Narrative: Review of Systems Constitutional: not feeling poorly and not feeling tired. Cardiovascular: no chest pain, no palpitations and no lower extremity edema. Respiratory: no shortness of breath and no cough. Gastrointestinal: no abdominal pain. Active Problems 1. Acute pharyngitis (462) (J02.9) 2. Cough (786.2) (R05) 3. Dry skin dermatitis (692.89) (L85.3) 4. Hyperlipidemia (272.4) (E78.5) 5. Itching (698.9) (L29.9) 6. Obesity (278.00) (E66.9) 7. Pain of great toe, right (729.5) (M79.674) [...] Social alcohol use (F10.99) Current Meds 1. ALPRAZolam 0.5 MG Oral Tablet; Therapy: [id number] to Recorded 2. AmLODIPine Besylate 5 MG Oral Tablet; Therapy: 06Dec2014 to Recorded 3. Atorvastatin Calcium 20 MG Oral Tablet; Therapy: 06Dec2014 to Recorded 4. FLUoxetine HCl - 40 MG Oral Capsule; Therapy: [id number] to Recorded 5. Triamcinolone Acetonide 0.1 % External Lotion; APPLY 2-3 TIMES DAILY TO AFFECTED AREA(S); Therapy: 05Jan2014 to (Last Rx:05Jan2014) Requested for: 05Jan2014 Ordered 6. Zolpidem Tartrate 10 MG Oral Tablet; Therapy: [id number] to Recorded 7. ZyrTEC Allergy 10 MG Oral Tablet; Therapy: (Recorded:[id number]) to Recorded Allergies 1. No Known Drug Allergies Vitals Recorded: 12Dec2014 02:02PM Heart Rate 60 Respiration 18 Systolic 119 Diastolic 67 O2 Saturation 98 Height 6 ft 3 in Weight 331 lb BMI Calculated 41.37 BSA Calculated 2.72 Physical Exam Constitutional General appearance: No acute distress, well appearing and well nourished. Pulmonary Respiratory effort: No increased work of breathing or signs of respiratory distress. Auscultation of lungs: Clear to auscultation. Cardiovascular Auscultation of heart: Normal rate and rhythm, normal S1 and S2, without murmurs. Examination of extremities for edema and/or varicosities: Normal. Abdomen Abdomen: Non-tender, no masses. Lymphatic Palpation of lymph nodes in neck: No lymphadenopathy. Musculoskeletal Gait and station: Normal. Psychiatric Orientation to person, place and time: Normal. Mood and affect: Normal. Assessment 1. Insomnia (780.52) (G47.00) 2. Depression with anxiety (300.4) (F41.8) 3. Atypical chest pain (786.59) (R07.89) 4. Blood pressure elevated without history of HTN (796.2) (R03.0) Plan 1. Cardiology Referral Outpatient For: Atypical chest pain Status: Need Information - Financial Authorization Requested for: 12Dec2014 Ordered; For: Atypical chest pain; Ordered By: Jerry Fatima Performed: Due: 26Dec2014; Last Updated By: Jadyn Riley; 12/12/2014 2:28:43 PM 2. Call if: The symptoms seem worse.; Status:Active; Requested for:12Dec2014; Last Updated By:Jadyn Riley; 12/12/2014 2:43:15 PM;Ordered; For:Atypical chest pain; Ordered By:Jerry Fatima; 3. QU-LIPID PANEL WITH REFLEX TO DIRECT LDL 00534; Status:Active; Requested for:12Dec2014; Perform:[facility]; Due:11Jan2015; Last Updated By:Jadyn Riley; 12/12/2014 2:29:41 PM;Ordered; For:Hyperlipidemia; Ordered By:Jerry Fatima; He will hold off starting any blood pressure medicine and let us know what his readings are. Signatures Electronically signed by : Jerry Fatima M.D.; Dec 12 2014 6:02PM PRODUCT SAFETY ASSOCIATE (Author) documented in this encounter Plan of Treatment Upcoming Encounters Date Type Department Care Team (Late st Contact Info) Description 03/28/2024 7:30 AM PRODUCT SAFETY ASSOCIATE Hospital Encounter [facility] [place] [place] [address] Antwan Stone, DIEGO [address], [place] [address] 03/28/2024 7:30 AM PRODUCT SAFETY ASSOCIATE Anesthesia Event [facility] [address] Shanelle Avila, INSULATION WORKER [address] [place] [address] 03/28/2024 7:30 AM PRODUCT SAFETY ASSOCIATE - 03/28/2024 8:48 AM PRODUCT SAFETY ASSOCIATE Surgery [facility] [address] Antwan Stone DPM [address], [place] [address] REMOVAL OF HARDWARE LEFT FOOT 04/05/2024 8:30 AM PRODUCT SAFETY ASSOCIATE Office Visit [facility] THREE [facility], [facility] [address] [place] [address] Dominick Mccloud MD Three [facility]. [facility] [address] [place] [address] Scheduled Procedures Name Priority Associated Diagnoses Date/Ti me REMOVAL PLATE SCREW OR PIN SCHED BY FAX 02/08/24 [facility] PHONE ASSESS 03/28/2024 7:30 AM PRODUCT SAFETY ASSOCIATE documented as of this encounter Procedures Procedure Name Priority Date/Time Associated Diagnosis Comments LIPID PANEL WITH DIRECT LDL Routine 12/12/2014 2:38 PM CDT documented in this encounter Results * (ABNORMAL) LIPID PANEL WITH DIRECT LDL (12/12/2014 2:38 PM CDT) CHOLESTEROL 206(H) 125 - 200 mg/dL [facility] TO EPIC CONVERSION HDL 55 > OR = 40 mg/dL [facility] TO [facility] CONVERSION TRIGLYCERIDES 124 <150 mg/dL [facility] TO [facility]IC CONVERSION LDL (CALCULATED) 126 <130 [facility] TO [facility]IC CONVERSION Comment: Result Comment: UNITS: mg/dL (calc) Desirable range <100 mg/dL for patients with CHD or diabetes and <70 mg/dL for diabetic patients with known heart disease. CHOL/HDL RATIO 3.7 < OR = 5.0 (calc) [facility] TO EPIC CONVERSION NON HDL CHOLESTEROL 151 [facility] TO [facility]IC CONVERSION Comment: Result Comment: UNITS: mg/dL (calc) Target for non-HDL cholesterol is 30 mg/dL higher than LDL cholesterol target. Test Performed at: [facility] ??[id number] ? ENRICO VALDEZ DO,MPH 12/12/2014 2:38 PM CDT 12/12/2014 2:38 PM CDT Narrative [facility] TO EPIC CONVERSION - 12/13/2014 8:07 AM CDT Result Communication: Call patient with results us Jerry Faitma MD LABORATORY Final Result [facility] TO EPIC CONVERSION documented in this encounter Visit Diagnoses Not on filedocumented in this encounter Care Teams Coke Loader Relationship Specialty Start Date End Date Jerry Fatima MD PCP - General 01/11/15 05/31/18 documented as of this encounter
--- OUTSIDE RECORDS SUMMARY | 2024-03-02 03:25 | XMS_ITS | Encounter Summary ---
Author Organization [facility] Address [address] [place] [address]. [place], [place] [address] [place] [address] Care Team Providers Care Certified [employer] Administrator Name Role Phone Mo Salamanca MD Primary Care Provider Yan alvarado Encounter Details Date Type Department Care Team (Latest Contact Info) Description 01/12/2015 Abstract [facility] Medical Group , Marge Carreon MD Social History Tobacco Use Types Packs/Day Years Used Date Smoking Tobacco: Never Assessed Sex and Gender Information Value Date Recorded Sex Assigned at Not on file Legal Sex Male 9:00 PM CDT Gender Identity Not on file Sexual Orientation Not on file documented as of this encounter Progress Notes * Yakov Bello MD - 01/12/2015 10:30 AM CDT Message Ultrasound is normal pts notified-rosa Verified Results US ABDOMEN COMPLETE 11Jan2015 08:50AM Yakov Bello Test Name Result Flag Reference US ABDOMEN COMPLETE (Report) KWAKU BULLOCK ADMIT/SERVICE DATE: 01/11/15 ACCT: [id number] DISCHARGE DATE: : 1965 SEX: M ORD SITE: [facility] PT TYPE: REG CLI ORDERING MD: MO SALAMANCA MD STUDY DATE REPORT # ORDER # EXT ORDER ID 01/11/15 [id number] PROC CODE: ABDCMP PROCEDURE DESCRIPTION: US ABDOMEN [...] ELECTRONICALLY SIGNED BY: LALITA HEAD01/11/2015 8:54 AM Plan Depression with anxiety ?? 0.5 MG Oral Tablet; TAKE ONE-HALF TO ONE TABLET BY MOUTH TWICE DAILY NEEDED FOR ANXIETY Insomnia ?? Tartrate 10 MG Oral Tablet; TAKE ONE TABLET BY MOUTH ONE HOUR BEFORE BEDTIME NEEDED FOR SLEEP Signatures Electronically signed by : Rosa Hudson, ; Jan 12 2015 12:35PM QUALITY ASSURANCE ANALYST (Author) documented in this encounter Plan of Treatment Upcoming Encounters Date Type Department Care Team (Late st Contact Info) Description 03/28/2024 7:30 AM QUALITY ASSURANCE ANALYST Hospital Encounter [facility] [place] [address] Antwan Stone, DIEGO [address] [place], [place] [address] 03/28/2024 7:30 AM QUALITY ASSURANCE ANALYST Anesthesia Event [facility] [place] [address] Shanelle Avila, BASE BRANDER [address] [place] [address] 03/28/2024 7:30 AM QUALITY ASSURANCE ANALYST - 03/28/2024 8:48 AM QUALITY ASSURANCE ANALYST Surgery [facility] [place] [address] Antwan Stone DPM [address] [place] [address] REMOVAL OF HARDWARE LEFT FOOT 04/05/2024 8:30 AM QUALITY ASSURANCE ANALYST Office Visit [facility] THREE [facility], [facility] [address] [place] [address] Dominick Mccloud MD Three [facility]. [facility] [address] [place], [place] [address] Scheduled Procedures Name Priority Associated Diagnoses Date/Ti me REMOVAL PLATE SCREW OR PIN SCHED BY FAX 02/08/24 [facility] PHONE ASSESS 03/28/2024 7:30 AM QUALITY ASSURANCE ANALYST documented as of this encounter Visit Diagnoses Not on filedocumented in this encounter Care Teams Certified [employer] Administrator Relationship Specialty Start Date End Date Mo Salamanca MD PCP - General 01/11/15 05/31/18 documented as of this encounter
--- OUTSIDE RECORDS SUMMARY | 2024-03-02 03:25 | XMS_ITS | Encounter Summary ---
Author Organization [facility] Address [address] [place] [address]. [place], [place] [address] [place] [address] Care Team Providers Care Engagement Liaison Name Role Phone Jerry Fatima MD Primary Care Provider Yan alvarado Encounter Details Date Type Department Care Team (Latest Contact Info) Description 02/10/2014 Abstract [facility] Jaskaran Lubin MD Social History [...] Sign Reading Time Taken Comments Blood Pressure 122/78 02/10/2014 8:57 AM UNION REPRESENTATIVE Pulse 70 02/10/2014 8:57 AM UNION REPRESENTATIVE Temperature - - Respiratory Rate - - Oxygen Saturation - - Inhaled Oxygen Concentration - - Weight 170.3 kg (375 lb 8 oz) 02/10/2014 8:57 AM UNION REPRESENTATIVE Height 190.5 cm (6' 3 ) 02/10/2014 8:57 AM UNION REPRESENTATIVE Body Mass Index 46.93 02/10/2014 8:57 AM UNION REPRESENTATIVE documented in this encounter Progress Notes * Jaskaran Lubin MD - 02/10/2014 9:00 AM CST Chief Complaint 1. Foot Problem Right great toe pain since 02/09/14. Hit great toe edge of bed about 4 days ago. hmoss History of Present Illness Kwaku Kulkarni presents with complaints of gradual onset of constant episodes of moderate right foot problem. The symptoms resulted from a direct blow. The injury occurred at home. Episodes started 1 day ago. Symptoms are improved by immobilization and rest. Symptoms are made worse by walking, standing and direct pressure. Symptoms are worsening. Associated symptoms include foot pain and foot swelling, but no foot numbness. Review of Systems See HPI for pertinent positives. Constitutional: Normal. Cardiovascular: Normal. Respiratory: Normal. Gastrointestinal: Normal. Musculoskeletal: joint pain. Neurological: Normal. Psychiatric: Normal. Active Problems 1. Acute pharyngitis (462) (J02.9) 2. Cough (786.2) (R05) 3. Dry skin dermatitis (692.89) (L85.0) 4. Hyperlipidemia (272.4) (E78.5) 5. Itching (698.9) (L29.9) 6. Obesity (278.00) (E66.9) Past Medical History Patient indicats no significant past medical history. Surgical History 1. History of Appendectomy 2. History of Tonsillectomy Family History Father 1. Family history of Benign diastolic hypertension 2. Family history of coronary artery disease (V17.3) (Z82.49) Child 3. No pertinent family history Family History 4. Family history of Arthritis (V17.7) Social History ?? Caffeine use (V49.89) (F15.929) ? Never a smoker ?? Social alcohol use (F10.99) Current Meds 1. Triamcinolone Acetonide 0.1 % External Lotion; APPLY 2-3 TIMES DAILY TO AFFECTED AREA(S); Therapy: 05Jan2014 to (Last Rx:05Jan2014) Requested for: 05Jan2014 Ordered Rx By: Jaskaran Lubin; Dispense: 0 Days ; #:1 X 60 ML Bottle; Refill: 1; For: Dry skin dermatitis;PADMINI = N; Verified Transmission to [facility]; Last Updated By: Kavitha Brown; 01/05/2014 11:29:42 AM 2. ZyrTEC Allergy 10 MG Oral Tablet; Therapy: (Recorded:98Imn7619) to Recorded Dispense: 0 Days ; #: Sufficient TABS; Refill: 0; PADMINI = N; Record; Last Updated By: Adilene Leong; 11/07/2013 2:12:18 PM Allergies 1. No Known Drug Allergies Recorded By: Keke Brur; 01/15/2012 11:06:49 AM Vitals Vital Signs [Data Includes: Current Encounter] Recorded by : Clara Nathan at 10Feb2014 08:57AM Temperature 97.9 F, Oral Heart Rate 70 Respiration 20 Systolic 122 Diastolic 78 O2 Saturation 98 Height 6 ft 3 in Weight 375 lb 8 oz BMI Calculated 46.93 BSA Calculated 2.87 Physical Exam Constitutional General appearance: No acute distress, well appearing and well nourished. Pulmonary Respiratory effort: No increased work of breathing or signs of respiratory distress. Musculoskeletal Inspection/palpation of joints, bones, and muscles: Abnormal. Appearance - right foot and right 1 toe swelling. Palpation - right foot and right 1 toe tenderness. Assessment 1. Pain of great toe, right (729.5) (M79.674) Plan Pain of great toe, right 1. Start: Hydrocodone-Acetaminophen 10-325 MG Oral Tablet; TAKE 1 TABLET EVERY 6 HOURS NEEDED FOR PAIN Rx By: Jaskaran Lubin; Dispense: 5 Days ; #:20 Tablet; Refill: 0; For: Pain of great toe, right; PADMINI = N; Print Rx 2. Uric Acid Status: Active Requested for: 10Feb2014 [facility] Due: 13Qre8212; Last Updated By: Clara Nathan; 02/10/2014 9:19:22 AM; Ordered; For: Pain of great toe, right; Ordered By: Jaskaran Lubin 3. XR FOOT 3+ VIEW RT ( Routine ) Status: Active Requested for: 10Feb2014 Perform: Other Radiology Due: 37Vin2886; Ordered; For: Pain of great toe, right; Ordered By: Jaskaran Lubin vicodin prn pain rest, no walking uric acid will wait till thursday for x ray, if pain and swelling don?t improve will get x ray Signatures Electronically signed by : Jaskaran Lubin M.D.; Feb 10 2014 9:22AM UNION REPRESENTATIVE (Author) documented in this encounter Plan of Treatment Upcoming Encounters Date Type Department Care Team (Late st Contact Info) Description 03/28/2024 7:30 AM UNION REPRESENTATIVE Hospital Encounter [facility] [place] [address] Antwan Stone, DIEGO [address], [place] [address] 03/28/2024 7:30 AM UNION REPRESENTATIVE Anesthesia Event [place] [address] Shanelle Avila, MANAGER FORENSIC [address] [place] [address] 03/28/2024 7:30 AM UNION REPRESENTATIVE - 03/28/2024 8:48 AM UNION REPRESENTATIVE [place] [address] Antwan Stone, DIEGO [address], [place] [address] REMOVAL OF HARDWARE LEFT FOOT 04/05/2024 8:30 AM UNION REPRESENTATIVE Office Visit [place] Fara-Omar'Marbella allon THREE [facility], [facility] [address] [place] [address] Dominick Mccloud MD Three [facility]. [facility] [address] [place] [address] Scheduled Procedures Name Priority Associated Diagnoses Date/Ti me REMOVAL PLATE SCREW OR PIN SCHED BY FAX 02/08/24 KAYLIE PHONE ASSESS 03/28/2024 7:30 AM UNION REPRESENTATIVE documented as of this encounter Procedures Procedure Name Priority Date/Time Associated Diagnosis Comments URIC ACID BLOOD Routine 02/10/2014 9:44 AM UNION REPRESENTATIVE documented in this encounter Results * URIC ACID BLOOD (02/10/2014 9:44 AM UNION REPRESENTATIVE) URIC ACID 6.4 3.4 - 7.0 mg/dL [facility] TO EPIC CONVERSION 02/10/2014 9:44 AM UNION REPRESENTATIVE 02/10/2014 9:44 AM UNION REPRESENTATIVE Narrative [facility] TO EPIC CONVERSION - 02/10/2014 3:10 PM UNION REPRESENTATIVE Result Communication: Call patient with results us Jaskaran Lubin MD LABORATORY Final Resul t [facility] TO EPIC CONVERSION documented in this encounter Visit Diagnoses Not on filedocumented in this encounter Care Teams Engagement Liaison Relationship Specialty Start Date End Date Jerry Fatima MD PCP - General 01/11/15 05/31/18 documented as of this encounter
--- OUTSIDE RECORDS SUMMARY | 2024-03-02 03:25 | XMS_ITS | Encounter Summary ---
Author Organization [facility] Address [address] [place] [address]. [place], [place] [address] [place] [address] Care Team Providers Care Product Development Intern Name Role Phone Jerry Fatima MD Primary Care Provider Yan alvarado Encounter Details Date Type Department Care Team (Latest Contact Info) Description 01/10/2015 Abstract [facility] Social History Tobacco Use Types Packs/Day Years Used Date Smoking Tobacco: Never Assessed Sex and Gender Information Value Date Recorded Sex Assigned at Not on file Legal Sex Male 9:00 PM CDT Gender Identity Not on file Sexual Orientation Not on file documented as of this encounter Progress Notes * Generic Conversion MD Nimisha - 01/10/2015 10:48 AM CDT Message Recorded as Task Date: 01/10/2015 09:04 AM, Created By: Olga Coronel Task Name: Medical Complaint Callback Assigned To: [facility] Team Kushal Regarding Patient: Kwaku Kulkarni, Status: In Progress Comment: Olga Coronel - 10 Jan 2015 9:04 AM TASK CREATED Caller: Anna, Spouse; Medical Complaint; ; saw the developmental writing instructor and cleared of heart issues causing right sided pain. developmental writing instructor suggested contacting you for possible gallbladder studys or abdominal testing. reporting he was pretty miserable over the weekend and doesn't think he'll make it until you return on jan 23 to be reevaluated. High deductible to go to ER as well. can you order testing now? Jerry Fatima - 10 Jan 2015 10:33 AM TASK REASSIGNED: Previously Assigned To Jerry Fatima He was seen here 12/12/14 for followup of a hospital visit for right back and atypical chest pain that had resolved. If he is now continuing to have symptoms then, yes, I would like him to have a gallbladder ultrasound, liver panel, amylase, lipase. Apoorva Hudson - 10 Jan 2015 10:43 AM TASK IN PROGRESS Message: patient notified , orders sent to [facility] Plan 1. US ABDOMEN LIMITED RUQ; Status:Active; Requested for:10Jan2015; Perform:Other Radiology; Due:09Feb2015; Last Updated By:Jadyn Riley; 01/10/2015 10:49:54 AM;Ordered; For:Abdominal pain; Ordered By:Jerry Fatima; Signatures Electronically signed by : Jadyn Riley, ; Jan 10 2015 10:49AM FOOD EQUIPMENT SERVICE TECHNICIAN (Author) documented in this encounter Plan of Treatment Upcoming Encounters Date Type Department Care Team (Late st Contact Info) Description 03/28/2024 7:30 AM FOOD EQUIPMENT SERVICE TECHNICIAN Hospital Encounter [facility] [place] [address] Antwan Stone DPM [address], [place] [address] 03/28/2024 7:30 AM FOOD EQUIPMENT SERVICE TECHNICIAN Anesthesia Event [place] [address] Shanelle Avila, MIXED SIGNAL DESIGN ENGINEER [address] [place] [address] 03/28/2024 7:30 AM FOOD EQUIPMENT SERVICE TECHNICIAN - 03/28/2024 8:48 AM FOOD EQUIPMENT SERVICE TECHNICIAN Surgery [facility] [place] [address] Antwan Stone DPM [address] [place] [address] REMOVAL OF HARDWARE LEFT FOOT 04/05/2024 8:30 AM FOOD EQUIPMENT SERVICE TECHNICIAN Office Visit [place] David'Marbella fleming THREE [facility], [facility] [address] [place] [address] Dominick Mccloud MD Three [facility]. [facility] [address] [place] [address] Scheduled Procedures Name Priority Associated Diagnoses Date/Ti me REMOVAL PLATE SCREW OR PIN SCHED BY FAX 02/08/24 [facility] PHONE ASSESS 03/28/2024 7:30 AM FOOD EQUIPMENT SERVICE TECHNICIAN documented as of this encounter Visit Diagnoses Not on filedocumented in this encounter Care Teams Product Development Intern Relationship Specialty Start Date End Date Jerry Fatima MD PCP - General 01/11/15 05/31/18 documented as of this encounter
--- OUTSIDE RECORDS SUMMARY | 2024-03-02 03:25 | XMS_ITS | Encounter Summary ---
Author Organization [facility] Address [address] [place] [address]. [place] [address] [place] [address] Care Team Providers Care Afternoon Babysitter Name Role Phone Jerry Fatima MD Primary Care Provider Yan alvarado Encounter Details Date Type Department Care Team (Late st Contact Info) Description 02/10/[address] [facility] [place] [address] Jaskaran Lubin MD Social History Tobacco Use [...] st Contact Info) Description 03/28/2024 7:30 AM TAX PROFESSIONAL Hospital Encounter [facility] [place] [address] Antwan Stone, DIEGO [address], [place] [address] 03/28/2024 7:30 AM TAX PROFESSIONAL Anesthesia Event [facility] [place] [address] Shanelle Avila, MANAGER OF GLOBAL [address] [place] [address] 03/28/2024 7:30 AM TAX PROFESSIONAL - 03/28/2024 8:48 AM TAX PROFESSIONAL Surgery [facility] [place] [address] Antwan Stone, DPM [address], [place] [address] REMOVAL OF HARDWARE LEFT FOOT 04/05/2024 8:30 AM TAX PROFESSIONAL Office Visit Darren Fara-O'F allon THREE [facility], [facility] [address] [place] [address] Dominick Mccloud MD Three [facility]. [facility] [address] [place] [address] Scheduled Procedures Name Priority Associated Diagnoses Date/Ti me REMOVAL PLATE SCREW OR PIN SCHED BY FAX 02/08/24 [facility] PHONE ASSESS 03/28/2024 7:30 AM TAX PROFESSIONAL documented as of this encounter Visit Diagnoses Diagnosis Pain in soft tissues of limb Pain in limb Painful orthopaedic hardware (CMS/HCC)- Primary documented in this encounter Care Teams Afternoon Babysitter Relationship Specialty Start Date End Date Jerry Fatima MD PCP - General 01/11/15 05/31/18 documented as of this encounter
--- OUTSIDE RECORDS SUMMARY | 2024-03-02 03:25 | XMS_ITS | Encounter Summary ---
Author Organization [facility] Address [address] [place] [address]. [place], [place] [address] [place] [address] Care Team Providers Care Shift Mechanic Name Role Phone Jerry Fatima MD Primary Care Provider Yan alvarado Encounter Details Date Type Department Care Team (Late st Contact Info) Description 10/14/[address] [place] [address] Roberto Holman MD Social History Tobacco Use [...] st Contact Info) Description 03/28/2024 7:30 AM TOP EXECUTIVE Hospital Encounter [facility] [place] [address] Antwan Stone DPM [address], [place] [address] 03/28/2024 7:30 AM TOP EXECUTIVE Anesthesia Event [facility] [place] [address] Shanelle Avila, LEVEL GLASS FORMING 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 [address] [place] [address] 03/28/2024 7:30 AM TOP EXECUTIVE - 03/28/2024 8:48 AM TOP EXECUTIVE Surgery [facility] [place] [address] Antwan Stone, DPM [address], [place] [address] REMOVAL OF HARDWARE LEFT FOOT 04/05/2024 8:30 AM TOP EXECUTIVE Office Visit [facility] THREE [facility], [facility] [address] [place], [place] [address] Dominick Mccloud MD Three [facility]. [facility] [address] [place] [address] Scheduled Procedures Name Priority Associated Diagnoses Date/Ti me REMOVAL PLATE SCREW OR PIN SCHED BY FAX 02/08/24 [facility] PHONE ASSESS 03/28/2024 7:30 AM TOP EXECUTIVE documented as of this encounter Visit Diagnoses Diagnosis Other laboratory examination Painful orthopaedic hardware (CMS/HCC)- Primary documented in this encounter Care Teams Shift Mechanic Relationship Specialty Start Date End Date Jerry Fatima MD PCP - General 01/11/15 05/31/18 documented as of this encounter
--- OUTSIDE RECORDS SUMMARY | 2024-03-02 03:25 | XMS_ITS | Encounter Summary ---
Author Organization [facility] Address [address] [place] [address]. [place], [place] [address] [place] [address] Care Team Providers Care Journeyman Power Plant Operator Name Role Phone Clara Stanley Primary Care Provider [phone] Encounter Details Date Type Department Care Team (Late st Contact Info) Description 06/07/2018 Orders Only [facility] Medical [facility] Family & Internal Medicine [address] [address] Jadyn Riley MA Social History Tobacco Use Types Packs/Day [...] Info) Description 03/28/2024 7:30 AM [facility] Hospital Encounter [facility] [place] [address] Antwan Stone DPM [address] [place] [address] 03/28/2024 7:30 AM SCIENCE CONSULTANT Anesthesia Event [facility] [place] [address] Shanelle Avila, MINING MACHINERY ASSEMBLER [address] [place] [address] 03/28/2024 7:30 AM SCIENCE CONSULTANT - 03/28/2024 8:48 AM SCIENCE CONSULTANT Surgery [facility] [place] [address] Antwan Stone, DPM [address], [place] [address] REMOVAL OF HARDWARE LEFT FOOT 04/05/2024 8:30 AM SCIENCE CONSULTANT Office Visit Darren Chaudhari-O'F allon THREE [facility], [facility] [address] [place] [address] Dominick Mccloud MD Three [facility]. [facility] [address] [place] [address] Scheduled Procedures Name Priority Associated Diagnoses Date/Ti me REMOVAL PLATE SCREW OR PIN SCHED BY FAX 02/08/24 [facility] PHONE ASSESS 03/28/2024 7:30 AM SCIENCE CONSULTANT documented as of this encounter Visit Diagnoses Not on filedocumented in this encounter Care Teams Journeyman Power Plant Operator Relationship Specialty Start Date End Date Clara Stanley APNP [address] [place] [address] PCP - General NURSE PRACTITIONER 06/01/18 documented as of this encounter
--- OUTSIDE RECORDS SUMMARY | 2024-03-02 03:25 | XMS_ITS | Encounter Summary ---
Author Organization [facility] Address [address] [place] [address]. [place], [place] [address] [place] [address] Care Team Providers Care Wet End Tester Name Role Phone Jerry Fatima MD Primary Care Provider Yan alvarado Encounter Details Date Type Department Care Team (Latest Contact Info) Description 05/10/2012 Abstract [facility] Roberto Holman MD Social [...] Sign Reading Time Taken Comments Blood Pressure 142/82 05/10/2012 9:50 AM TILE LAYER Pulse 57 05/10/2012 9:50 AM TILE LAYER Temperature - - Respiratory Rate - - Oxygen Saturation - - Inhaled Oxygen Concentration - - Weight 166.9 kg (368 lb) 05/10/2012 9:50 AM TILE LAYER Height - - Body Mass Index 46 01/15/2012 11:05 AM CDT documented in this encounter Progress Notes * Roberto Holman MD - 05/10/2012 10:00 AM CST Chief Complaint Chief Complaint Free Text: CHECK-UP History of Present Illness HPI Free Text: Justin comes in for f/u of weight and BP. He admits he has not sone well with either diet or exercisein last 3 months. He is up 17 #, his BP is till high end of acceptable range. We again had a talk about future health and wt implications, and he will try the DASH diet and try to exercise as weather improves, then see me queenie in 3 months., He is on taail iend of a cold, but feel liks it is going away. Review of Systems Focused-Male: Constitutional: no fever, not feeling poorly, no chills and no headache. ENT: nasal discharge, but no earache. Cardiovascular: no chest pain and no palpitations. Respiratory: cough, but no shortness of breath and no shortness of breath during exertion. Gastrointestinal: no abdominal pain, no constipation, no vomiting and no diarrhea. Active Problems 1. Cough 786.2 2. Itching (Pruritus) 698.9 Social History ?? Never A Smoker Current Meds 1. Aspirin Low Dose 81 MG Oral Tablet; TAKE 1 TABLET DAILY; Therapy: (Recorded:15Jan2012) to Recorded; Dispense: 0 Days ; #: Sufficient Tablet; Refill: 0; Record; Last Updated By: eKke Burr 2. Benzonatate 200 MG Oral Capsule; TAKE 1 CAPSULE THREE TIMES DAILY PRN; Therapy: 49Nru3908 to (Last Rx:[id number]) Requested for: 21Oyr0423 Ordered; For: Cough (786.2); Rx By: Roberto Holman; Dispense: 0 Days ; #:21 Capsule; Refill: 0; Verified Transmission to [facility] # [id number]; Last Updated By: Keke Burr 3. Clotrimazole-Betamethasone 1-0.05 % External Cream; apply BID; Therapy: 70Lvi1200 to Recorded; Dispense: 0 Days ; #: Sufficient GM; Refill: 0; Record; Last Updated By: Keke Burr 4. Triamcinolone Acetonide 0.1 % External Cream; apply twice daily PRN; Therapy: 48Jrl9706 to (Last Rx:[id number]) Requested for: 82Fey2435 Ordered; For: Itching (Pruritus) (698.9); Rx By: Roberto Holman; Dispense: 0 Days ; #:80 GM; Refill:0; Verified Transmission to [facility] # [id number]; Last Updated By: Keke Burr Allergies 1. No Known Drug Allergies No Known Drug Allergies Vitals Vital Signs [Data Includes: Current Encounter] 12Uds5902 09:50AM Heart Rate 57 Respiration 18 Systolic 142 Diastolic 82 BMI Calculated 46.24 BSA Calculated 2.84 Weight 368 lb Physical Exam Eyes Conjunctiva and lids: No swelling, erythema, or discharge. Pupils and irises: Equal, round and reactive to light. Ears, Nose, Mouth, and Throat External inspection of ears and nose: Normal. Otoscopic examination: Tympanic membrance translucent with normal light reflex. Canals patent without erythema. Oropharynx: Normal with no erythema, edema, exudate or lesions. Pulmonary Respiratory effort: No increased work of breathing or signs of respiratory distress. Auscultation of lungs: Clear to auscultation. Cardiovascular Auscultation of heart: Normal rate and rhythm, normal S1 and S2, without murmurs. Abdomen Abdomen: Non-tender, no masses. Liver and spleen: No hepatomegaly or splenomegaly. Assessment obesity, BP chcek Plan 1. Azithromycin 250 MG Oral Tablet; TAKE 2 TABLETS ON DAY 1 THEN TAKE 1 TABLET A DAY FOR 4 DAYS; Therapy: 67Tev4287 to 29Mjy9089; Last Rx:18Mtr4101; Status: DISCONTINUED Ordered; For: Cough (786.2); Rx By: Roberto Holman; Dispense: 0 Days ; #:6 Tablet; Refill: 0; Sent To: [facility] # [id number]; Last Updated By: Keke Burr 2. PredniSONE 20 MG Oral Tablet; TAKE 3 TABLETS DAILY FOR 3 DAYS, THEN 2 TABLETS DAILY FOR 3 DAYS, THEN 1 TABLET DAILY FOR 3 DAYS; Therapy: 17Ofr0150 to 38Mjs1809; Last Rx:[id number]; Status: DISCONTINUED Ordered; For: Itching (Pruritus) (698.9); Rx By: Roberto Holman; Dispense: 0 Days ; #:18 Tablet; Refill: 0; Sent To: [facility] # [id number]; Last Updated By: Keke Burr as above Signatures Electronically signed by : Roberto Holman M.D.; May 10 2012 10:26AM (Author) LAYER documented in this encounter Plan of Treatment Upcoming Encounters Date Type Department Care Team (Late st Contact Info) Description 03/28/2024 7:30 AM TILE LAYER Hospital Encounter [facility] [place] [address] Antwan Stone DPM [address], [place] [address] 03/28/2024 7:30 AM TILE LAYER Anesthesia Event [facility] [place] [address] Shanelle Avila, INFORMATION SECURITY SYSTEMS INSTRUCTOR [address] [place] [address] 03/28/2024 7:30 AM TILE LAYER - 03/28/2024 8:48 AM TILE LAYER Surgery [facility] [place] [address] Antwan Stone DPM [address] [place] [address] REMOVAL OF HARDWARE LEFT FOOT 04/05/2024 8:30 AM TILE LAYER Office Visit [facility]on THREE [facility], [facility] [address] [place] [address] Dominick Mccloud MD Three [facility]. [facility] [address] [place] [address] Scheduled Procedures Name Priority Associated Diagnoses Date/Ti me REMOVAL PLATE SCREW OR PIN SCHED BY FAX 02/08/24 [facility] PHONE ASSESS 03/28/2024 7:30 AM TILE LAYER documented as of this encounter Visit Diagnoses Not on filedocumented in this encounter Care Teams Wet End Tester Relationship Specialty Start Date End Date Jerry Fatima MD PCP - General 01/11/15 05/31/18 documented as of this encounter
--- OUTSIDE RECORDS SUMMARY | 2024-03-02 03:25 | XMS_ITS | Encounter Summary ---
Author Organization [facility] Address [address] [place] [address]. [place], [place] [address] [place] [address] Care Team Providers Care Orthopedic Assistant Name Role Phone Jerry Fatima MD Primary Care Provider Yan alvarado Encounter Details Date Type Department Care Team (Latest Contact Info) Description 02/13/2014 Abstract [facility] Medical Group Social History Tobacco Use Types Packs/Day Years Used Date Smoking Tobacco: Never Assessed Sex and Gender Information Value Date Recorded Sex Assigned at Not on file Legal Sex Male 9:00 PM CDT Gender Identity Not on file Sexual Orientation Not on file documented as of this encounter Progress Notes * Jaskaran Lubin MD - 02/13/2014 8:43 AM CST Message Please let Kwaku know that his uric acid is normal and that it is less likely to be a gout attack. If he still has pain, he can go ahead with the x ray as we disucssed before. thanks Verified Results Uric Acid 10Feb2014 09:44AM Jaskaran Lubin Test Name Result Flag Reference Uric Acid 6.4 mg/dL 3.4-7.0 documented in this encounter Plan of Treatment Upcoming Encounters Date Type Department Care Team (Late st Contact Info) Description 03/28/2024 7:30 AM REFRACTORY WORKER Hospital Encounter [facility] [place] [address] Antwan Stone DPM [address] [facility] [place] [address] 03/28/2024 7:30 AM REFRACTORY WORKER Anesthesia Event [place] [address] Shanelle Avila, TAX COMPLIANCE MANAGER [address] [place] [address] 03/28/2024 7:30 AM REFRACTORY WORKER - 03/28/2024 8:48 AM REFRACTORY WORKER Surgery [place] [address] Antwan Stone, DPM [address], [place] [address] REMOVAL OF HARDWARE LEFT FOOT 04/05/2024 8:30 AM REFRACTORY WORKER Office Visit [facility] THREE [facility], [facility] [address] [place] [address] Dominick Mccolud MD Three [facility]. [facility] [address] [place] [address] Scheduled Procedures Name Priority Associated Diagnoses Date/Ti me REMOVAL PLATE SCREW OR PIN SCHED BY FAX 02/08/24 [facility] PHONE ASSESS 03/28/2024 7:30 AM REFRACTORY WORKER documented as of this encounter Visit Diagnoses Not on filedocumented in this encounter Care Teams Orthopedic Assistant Relationship Specialty Start Date End Date Jerry Fatima MD PCP - General 01/11/15 05/31/18 documented as of this encounter
--- OUTSIDE RECORDS SUMMARY | 2024-03-02 03:25 | XMS_ITS | Encounter Summary ---
Author Organization [facility] Address [address] [place] [address]. [place], [place] [address] [place] [address] Care Team Providers Care Take Off Worker Name Role Phone Jerry Fatima MD Primary Care Provider Yan alvarado Encounter Details Date Type Department Care Team (Latest Contact Info) Description 02/21/2015 Abstract [facility] Medical Group Social History Tobacco Use Types [...] st Contact Info) Description 03/28/2024 7:30 AM ARCHITECTURAL EXAMINER Hospital Encounter [facility] [place] [address] Antwan Stone, DIEGO [address], [place] [address] 03/28/2024 7:30 AM ARCHITECTURAL EXAMINER Anesthesia [place] [address] Shanelle Avila, HOUSEKEEPING DEPARTMENT WORKER [address] [place] [address] 03/28/2024 7:30 AM ARCHITECTURAL EXAMINER - 03/28/2024 8:48 AM ARCHITECTURAL EXAMINER [facility] [address] Antwan Stone DPM [address], [place] [address] REMOVAL OF HARDWARE LEFT FOOT 04/05/2024 8:30 AM ARCHITECTURAL EXAMINER Office Visit [facility] THREE [facility], [facility] [address] [place] [address] Dominick Mccloud MD Three [facility]. [facility] [address] [place] [address] Scheduled Procedures Name Priority Associated Diagnoses Date/Ti me REMOVAL PLATE SCREW OR PIN SCHED BY FAX 02/08/24 [facility] PHONE ASSESS 03/28/2024 7:30 AM ARCHITECTURAL EXAMINER documented as of this encounter Visit Diagnoses Not on filedocumented in this encounter Care Teams Take Off Worker Relationship Specialty Start Date End Date Jerry Fatima MD PCP - General 01/11/15 05/31/18 documented as of this encounter
--- OUTSIDE RECORDS SUMMARY | 2024-03-02 03:25 | XMS_ITS | Encounter Summary ---
Author Organization [facility] Address [address] [place] [address]. [place], [place] [address] [place] [address] Care Team Providers Care Strainer Cleaner Name Role Phone Jerry Fatima MD Primary Care Provider Yan alvarado Encounter Details Date Type Department Care Team (Latest Contact Info) Description 01/06/2014 Abstract [facility] Medical Group Social History Tobacco Use Types Packs/Day Years Used Date Smoking Tobacco: Never Assessed Sex and Gender Information Value Date Recorded Sex Assigned at Not on file Legal Sex Male 9:00 PM CDT Gender Identity Not on file Sexual Orientation Not on file documented as of this encounter Progress Notes * Jaskaran Lubin MD - 01/06/2014 9:15 AM CDT Message Please let Justin know that his LDL is 145, I suggest either low fat diet or atorvastatin 10mg. I will leave it up to him to decide. Either way f/u with me in 6 months to recheck. His kidney and liver functions are doing good, thanks Verified Results CMP / Liver 05Jan2014 01:46PM Jaskaran Lubin Test Name Result Flag Reference Glucose 82 mg/dL 70-99 Blood Urea Nitrogen (BUN) 13 mg/dL 8-23 Creatinine 0.76 mg/dL 0.70-1.20 Sodium (Na) 139 mmol/L 136-145 Potassium (K) 4.4 mmol/L 3.5-5.1 Chloride (Cl) 100 mmol/L 98-107 Carbon Dioxide (CO2) 24 mmol/L 22-29 Anion Gap 19 8-20 Calcium 10.1 mg/dL 8.6-10.2 Total Bilirubin <0.1 mg/dL L 0.2-1.2 Direct Bilirubin <0.20 mg/dL 0.0-0.3 Indirect Bilirubin NOT CALCULATED mg/dL 0.0-0.9 Total Protein 7.8 g/dL 6.4-8.3 Albumin 4.4 g/dL 3.5-5.2 AST/GOT 22 IU/L 0-40 ALT/GPT 20 IU/L 0-41 Alkaline Phosphatase (ALKP) 88 IU/L 40-129 A:G Ratio 1.3 1.0-2.0 Glomerular Filt Rate Calc >60 mL/min/1.73m'2 >60 Glomerular Filt Rate (AA) Calc >60 >60 NOTE: eGFR is not calculated for patients <18 years of age. This is an estimated GFR (CKD EPI) and should not be used for calculating drug doses. mL/min/1.73m'2 Globulin, Calc 3.4 g/dL 2.3-3.6 Lipid Profile 05Jan2014 01:46PM Jaskaran Lubin Test Name Result Flag Reference Cholesterol 230 mg/dL H <200 Triglycerides 170 mg/dL H <150 HDL Cholesterol 51 mg/dL L >59 LDL Cholesterol, Calculated 145 mg/dL H <100 Non HDL, Calc 179 mg/dL H <130 NOTE: WHEN THE TRIGLYCERIDES ARE >200 mg/dL, NON HDL C IS A SECONDARY TARGET OF THERAPY, WITH A GOAL 30 mg/dL HIGHER THAN THE IDENTIFIED LDL C GOAL. Cholesterol/HDL Ratio 4.5 0.0-4.5 VLDL Cholesterol 34 mg/dL 5-55 Lipid Profile Comment 1 (Report) NIH CONCENSUS REPORT RECOMMENDATIONS: ADULT CHILD LOW RISK: CHOLESTEROL <200 <170 TRIGLYCERIDE <150 --- HDL >=60 --- LDL <100 <110 BORDERLINE: CHOLESTEROL 200-239 170-199 TRIGLYCERIDE 150-199 --- HDL 40-59 --- LDL 100-159 110-129 HIGH RISK: CHOLESTEROL >=240 >=200 TRIGLYCERIDE >=200 --- HDL <40 --- LDL >=160 >=130 documented in this encounter Plan of Treatment Upcoming Encounters Date Type Department Care Team (Late st Contact Info) Description 03/28/2024 7:30 AM [facility] Hospital Encounter [facility] [place] [address] Antwan Stone, DIEGO [address] [place] [address] 03/28/2024 7:30 AM BASKET GRADER Anesthesia Event [place] [address] Shanelle Avila, HEAT TREATING BLUER [address] [place] [address] 03/28/2024 7:30 AM BASKET GRADER - 03/28/2024 8:48 AM BASKET GRADER Surgery [place] [address] Antwan Stone, DIEGO [address] [place] [address] REMOVAL OF HARDWARE LEFT FOOT 04/05/2024 8:30 AM BASKET GRADER Office Visit [facility] THREE [facility], [facility] [address] [place] [address] Dominick Mccloud MD Three [facility]. [facility] [address] [place] [address] Scheduled Procedures Name Priority Associated Diagnoses Date/Ti me REMOVAL PLATE SCREW OR PIN SCHED BY FAX 02/08/24 [facility] PHONE ASSESS 03/28/2024 7:30 AM BASKET GRADER documented as of this encounter Visit Diagnoses Not on filedocumented in this encounter Care Teams Strainer Cleaner Relationship Specialty Start Date End Date Jerry Fatima MD PCP - General 01/11/15 05/31/18 documented as of this encounter
--- OUTSIDE RECORDS SUMMARY | 2024-03-02 03:25 | XMS_ITS | Encounter Summary ---
Author Organization [facility] Address [address] [place] [address]. [place], [place] [address] [place] [address] Care Team Providers Care Repairer Engine Production Name Role Phone Jerry Fatima MD Primary Care Provider Yan alvarado Encounter Details Date Type Department Care Team (Latest Contact Info) Description 01/08/2015 Abstract [facility] Medical Group Social History Tobacco Use Types [...] st Contact Info) Description 03/28/2024 7:30 AM FLAT CLOTHIER Hospital Encounter [facility] [place] [address] Antwan Stone, DIEGO [address] [place], [place] [address] 03/28/2024 7:30 AM FLAT CLOTHIER Anesthesia Event [facility] [address] Shanelle Avila, WEB MOBILE DESIGNER [address] [place] [address] 03/28/2024 7:30 AM FLAT CLOTHIER - 03/28/2024 8:48 AM FLAT CLOTHIER [facility] [place] [address] Antwan Stone DPM [address], [place] [address] REMOVAL OF HARDWARE LEFT FOOT 04/05/2024 8:30 AM FLAT CLOTHIER Office Visit [facility]-O'F allon THREE [facility], [facility] [address] [place] [address] Dominick Mccloud MD [facility]. [facility] [address] [place] [address] Scheduled Procedures Name Priority Associated Diagnoses Date/Ti me REMOVAL PLATE SCREW OR PIN SCHED BY FAX 02/08/24 [facility] PHONE ASSESS 03/28/2024 7:30 AM FLAT CLOTHIER documented as of this encounter Visit Diagnoses Not on filedocumented in this encounter Care Teams Repairer Engine Production Relationship Specialty Start Date End Date Jerry Fatima MD PCP - General 01/11/15 05/31/18 documented as of this encounter
--- OUTSIDE RECORDS SUMMARY | 2024-03-02 03:25 | XMS_ITS | Encounter Summary ---
Author Organization [facility] Address [address] [place] [address]. [place], [place] [address] [place] [address] Care Team Providers Care Senior Property Manager Name Role Phone Clara Stanley Primary Care Provider [phone] Encounter Details Date Type Department Care Team (Latest Contact Info) Description 06/09/2018 3:17 PM CDT - 06/09/2018 11:59 PM CDT Hospital Encounter [facility] [place] [address] Clara Stanley APNP [address] [place], [place] [id number] Discharge Disposition: Home or Self Care (Routine [...] mg total) by mouth daily. 90 tablet 06/07/2018 9 amoxicillin 500 MG capsule TK ONE C PO Q 8 H UNTIL GONE 0 05/28/2018 9 aspirin 81 MG tablet Take by mouth daily. 08/09/2014 9 fish oil 1000 MG Cap capsule 08/09/2014 9 Magnesium 100 MG Tab Take by mouth daily. 08/09/2014 9 pravastatin 10 MG tabletIndications:Mi xed hyperlipidemia Take 1 tablet (10 mg total) by mouth nightly at bedtime. 90 tablet 3 06/07/2018 9 triamcinolone 0.1 % lotion 01/05/2014 9 documented as of this encounter Plan of Treatment Upcoming Encounters Date Type Department Care Team (Late st Contact Info) Description 03/28/2024 7:30 AM [facility] Hospital Encounter [facility] [place] [address] Antwan Stone DPM [address] [place] [address] 03/28/2024 7:30 AM [facility] Anesthesia [place] [address] Shanelle Avila, VIDEO PRODUCTION COORDINATOR [address] [place] [address] 03/28/2024 7:30 AM FISHER HOOP NET - 03/28/2024 8:48 AM [facility] [place] [address] Antwan Stone DPM [address], [place] [address] REMOVAL OF HARDWARE LEFT FOOT 04/05/2024 8:30 AM FISHER HOOP NET Office Visit [facility]audh[facility]-O'F allon THREE [facility], [facility] [address] [place] [address] Dominick Mccloud MD Three [facility]. [facility] [address] [place] [address] Scheduled Procedures Name Priority Associated Diagnoses Date/Ti me REMOVAL PLATE SCREW OR PIN SCHED BY FAX 02/08/24 [facility] PHONE ASSESS 03/28/2024 7:30 AM FISHER HOOP NET documented as of this encounter Procedures Procedure Name Priority Date/Time Associated Diagnosis Comments HEMOGLOBIN, GLYCOSYLATED Routine 06/08/2018 10:57 AM CDT Hyperglycemia documented in this encounter Results * HEMOGLOBIN, GLYCOSYLATED (06/08/2018 10:57 AM CDT) HGB A1C 5.5 4.2 - 6.3 % 06/09/2018 5:38 PM CDT [facility] Comment: ADA GUIDELINES 2010 5.7 TO 6.4% INCREASED RISK OF DIABETES > OR = 6.5% CONSISTENT WITH DIABETES ESTIMATED AVG GLUCOSE 111 mg/dL 06/09/2018 5:38 PM CDT [facility] 06/08/2018 10:5 7 AM CDT [facility] Final Resul t [facility] [address] [place] [address], documented in this encounter Visit Diagnoses Diagnosis Hyperglycemia Other abnormal glucose Painful orthopaedic hardware (CMS/HCC)- Primary documented in this encounter Care Teams Senior Property Manager Relationship Specialty Start Date End Date Clara Stanley APNP [address] [place] [address] PCP - General NURSE PRACTITIONER 06/01/18 documented as of this encounter
--- OUTSIDE RECORDS SUMMARY | 2024-03-02 03:25 | XMS_ITS | Encounter Summary ---
Author Organization [facility] Address [address] [place] [address]. [place], [place] [address] [place] [address] Care Team Providers Care Remediation Consultant Name Role Phone Jerry aFtima MD Primary Care Provider Yan alvarado Encounter Details Date Type Department Care Team (Latest Contact Info) Description 02/13/2016 Abstract [facility] Medical Group Social History Tobacco Use [...] st Contact Info) Description 03/28/2024 7:30 AM KENNEL WORKER Hospital Encounter [facility] [place] [address] Antwan Stone, DIEGO [address], [place] [address] 03/28/2024 7:30 AM KENNEL WORKER Anesthesia Event [facility] [address] Shanelle Avila, VISUAL SPECIALIST 1 [place] [address] 03/28/2024 7:30 AM KENNEL WORKER - 03/28/2024 8:48 AM KENNEL WORKER Surgery [facility] [place] [address] Antwan Stone DPM [address], [place] [address] REMOVAL OF HARDWARE LEFT FOOT 04/05/2024 8:30 AM KENNEL WORKER Office Visit [facility]'F all[facility] THREE [facility], [facility] [address] [place] [address] Dominick Mccloud MD Three [facility]. [facility] [address] [place] [address] Scheduled Procedures Name Priority Associated Diagnoses Date/Ti me REMOVAL PLATE SCREW OR PIN SCHED BY FAX 02/08/24 [facility] PHONE ASSESS 03/28/2024 7:30 AM KENNEL WORKER documented as of this encounter Visit Diagnoses Not on filedocumented in this encounter Care Teams Remediation Consultant Relationship Specialty Start Date End Date Jerry Fatima MD PCP - General 01/11/15 05/31/18 documented as of this encounter
--- OUTSIDE RECORDS SUMMARY | 2024-03-02 03:25 | XMS_ITS | Encounter Summary ---
Author Organization [facility] Address [address] [place] [address]. [place], [place] [address] [place] [address] Care Team Providers Care Sld Inclusion Teacher Name Role Phone Jerry Fatima MD Primary Care Provider aYn alvarado Encounter Details Date Type Department Care Team (Latest Contact Info) Description 12/07/2014 Abstract [facility] Medical Group Social History Tobacco [...] st Contact Info) Description 03/28/2024 7:30 AM DEVELOPMENT ENG Hospital Encounter [facility] [place] [address] Antwan Stone, DIEGO [address], [place] [address] 03/28/2024 7:30 AM DEVELOPMENT ENG Anesthesia Event [facility] [place] [address] Shanelle Avila, WAREHOUSE ORDER FILLER 1 [place] [address] 03/28/2024 7:30 AM DEVELOPMENT ENG - 03/28/2024 8:48 AM DEVELOPMENT ENG Surgery [facility] [address] Antwan Stone DPM [address], [place] [address] REMOVAL OF HARDWARE LEFT FOOT 04/05/2024 8:30 AM DEVELOPMENT ENG Office Visit [facility]ren Chaudhari-O'F allon THREE [facility], [facility] [address] [place] [address] Dominick Mccloud MD Three [facility]. [facility] [address] [place] [address] Scheduled Procedures Name Priority Associated Diagnoses Date/Ti me REMOVAL PLATE SCREW OR PIN SCHED BY FAX 02/08/24 [facility] PHONE ASSESS 03/28/2024 7:30 AM DEVELOPMENT ENG documented as of this encounter Visit Diagnoses Not on filedocumented in this encounter Care Teams Sld Inclusion Teacher Relationship Specialty Start Date End Date Jerry Fatima MD PCP - General 01/11/15 05/31/18 documented as of this encounter
--- OUTSIDE RECORDS SUMMARY | 2024-03-02 03:25 | XMS_ITS | Encounter Summary ---
Author Organization [facility] Address [address] [place] [address]. [place], [place] [id number] [place] [id number] Care Team Providers Care Writer Technical Publications Name Role Phone Clara Stanley Primary Care Provider [phone] Reason for Referral * Consultation (Routine) - Closed Specialty Diagnoses / Procedures Referred By Contrebekah t Referred To Contact GASTROENTEROLOGY Diagnoses Colon cancer screening Clara Stanley APNP [address] [place] [id number] Phone: tel: fax: [facility] - [address], [address] [place] [phone] Phone: tel: fax: Referral ID Status Reason Start Date Expiration Date Visits Re quested Visits Authorized [id number] Closed 06/07/2018 07/08/2019 100 100 Reason for Visit * Reason Comments New Patient Hyperlipidemia Encounter Details Date Type Department Care Team (Latest Contact Info) Description 06/07/2018 11:20 AM CDT Office Visit [facility] - [address] [phone] Clara Stanley APNP [address] [place] [address] [phone] New Patient; Hyperlipidemia Social History Tobacco Use Types Packs/Day [...] Sign Reading Time Taken Comments Blood Pressure 146/86 06/07/2018 11:35 AM CDT Pulse 60 06/07/2018 11:35 AM CDT Temperature 36.2 ??C (97.2 ??F) 06/07/2018 11:35 AM C DT Respiratory Rate 16 06/07/2018 11:35 AM CDT Oxygen Saturation 99% 06/07/2018 11:35 AM CDT Inhaled Oxygen Concentration - - Weight 168.3 kg (371 lb) 06/07/2018 11:35 AM CDT Height 190.5 cm (6' 3 ) 06/07/2018 11:35 AM CDT Body Mass Index 46.37 06/07/2018 11:35 AM CDT documented in this encounter Patient Instructions * Patient Instructions* ZEB Nunn - 06/07/2018 11:20 AM CDT Images from the original note were not included. Patient Education Patient Education Controlling Your Blood Pressure Through Lifestyle The Basics Written by the doctors and editors at [facility] What does my lifestyle have to do with my blood pressure???--??The things you do and the foods you eat have a big effect on your blood pressure and your overall health. Following the right lifestyle can: ?? Lower your blood pressure or keep you from getting high blood pressure in the first place ?? Reduce your need for blood pressure medicines ?? Make medicines for high blood pressure work better, if you do take them ?? Lower the chances that you'll have a heart attack or stroke, or develop kidney disease Which lifestyle choices will help lower my blood pressure???--??Here's what you can do: ?? Lose weight (if you are overweight) ?? Choose a diet rich in fruits, vegetables, and low-fat dairy products, and low in meats, sweets, and refined grains ?? Eat less salt (sodium) ?? Do something active for at least 30 minutes a day on most days of the week ?? Limit the amount of alcohol you drink If you have high blood pressure, it's also very important to quit smoking (if you smoke). Quitting smoking might not bring your blood pressure down. But it will lower the chances that you'll have a heart attack or stroke, and it will help you feel better and live longer. Start low and go slow??--??The changes listed above might sound like a lot, but don't worry. You don't have to change everything all at once. The alfaro to improving your lifestyle is to start low and go slow. Choose 1 small, specific thing to change and try doing it for a while. If it works for you, keep doing it until it becomes a habit. If it doesn't, don't give up. Choose something else to change and see how that goes. Let's say, for example, that you would like to improve your diet. If you're the type of person who eats cheeseburgers and [place] fries all the time, you can't switch to eating just salads from 1 day to the next. When people try to make changes like that, they often fail. Then they feel frustrated and tend to give up. So instead of trying to change everything about your diet in 1 day, change 1 or 2 small things about your diet and give yourself time to get used to those changes. For instance, keep the cheeseburger but give up the [place] fries. Or eat the same things but cut your portions in half. As you find things that you are able to change and stick with, keep adding new changes. In time, you will see that you can actually change a lot. You just have to get used to the changes slowly. Lose weight??--??When people think about losing weight, they sometimes make it more complicated than it really is. To lose weight, you have to either eat less or move more. If you do both of those things, it's even better. But there is no single weight-loss diet or activity that's better than any other. When it comes to weight loss, the most effective plan is the one that you'll stick with. Improve your diet??--??There is no single diet that is right for everyone. But in general, a healthy diet can include: ?? Lots of fruits, vegetables, and whole grains ?? Some beans, peas, lentils, chickpeas, and similar foods ?? Some nuts, such as walnuts, almonds, and peanuts ?? Fat-free or low-fat milk and milk products ?? Some fish To have a healthy diet, it's also important to limit or avoid sugar, sweets, meats, and refined grains. (Refined grains are found in white bread, white rice, most forms of pasta, and most packaged snack foods.) Reduce salt??--??Many people think that eating a low-sodium diet means avoiding the salt shaker andnot adding salt when cooking. The truth is, not adding salt at the table or when you cook will onlyhelp a little. Almost all of the sodium you eat is already in the food you buy at the grocery storeor at restaurants (figure 1). The most important thing you can do to cut down on sodium is to eat less processed food. That meansthat you should avoid most foods that are sold in cans, boxes, jars, and bags. You should also eat in restaurants less often. To reduce the amount of sodium you get, buy fresh or fresh-frozen fruits, vegetables, and meats. (Fresh-frozen foods have had nothing added to them before freezing.) Then you can make meals at home, from scratch, with these ingredients. As with the other changes, don't try to cut out salt all at once. Instead, choose 1 or 2 foods thathave a lot of sodium and try to replace them with low- sodium choices. When you get used to those low-sodium options, find another food or 2 to change. Then keep going, until all the foods you eat aresodium-free or low in sodium. Become more active??--??If you want to be more active, you don't have to go to the gym or get all sweaty. It is possible to increase your activity level while doing everyday things you enjoy. Walking, gardening, and dancing are just a few of the things that you might try. As with all the other changes, the alfaro is not to do too much too fast. If you don't do any activity now, start by walking for just a few minutes every other day. Do that for a few weeks. If you stick with it, try doing it for longer. But if you find that you don't like walking, try a different activity. Drink less alcohol??--??If you are a woman, do not have more than 1 standard drink of alcohol a day. If you are a man, do not have more than 2. A standard drink is: ?? A can or bottle that has 12 ounces of beer ?? A glass that has 5 ounces of wine ?? A shot that has 1.5 ounces of whiskey Where should I start???--??If you want to improve your lifestyle, start by making the changes that you think would be easiest for you. If you used to exercise and just got out of the habit, maybe it would be easy for you to start exercising again. Or if you actually like cooking meals from scratch,maybe the first thing you should focus on is eating home-cooked meals that are low in sodium. Whatever you tackle first, choose specific, realistic goals, and give yourself a deadline. For example, do not decide that you are going to exercise more. Instead, decide that you are going to walkfor 10 minutes on Thursday, Thursday, and Thursday, and that you are going to do this for the next 2 weeks. When lifestyle changes are too general, people have a hard time following through. Now go. You can do it! All topics are updated as new evidence becomes available and our peer review process is complete. This topic retrieved from [employer] on: Dec 25, 2017. Topic 94050 Version 5.0 Release: 26.4.7 - C26.268 ?2018??[employer]. and/or its affiliates.??All rights reserved. figure 1: Sources of sodium in your diet Graphic 81072 Version 2.0 Consumer Information Use and Disclaimer This information [...] that is right for you.The use of [employer] content is governed by the [employer] Terms of Use. ??2018 [employer]. All rights reserved. Copyright ?2018??[employer]. and/or its affiliates.??All rights reserved. Patient Education Patient Education Health Risks of a High BMI About this topic Your weight and health depend on a few things. Doctors use a method called BMI or body mass index as a tool to learn more about your risk of having health problems. This tool uses your weight and your height to find your BMI. BMI does not include things like your habits, where you live, family history, or amount of body fat. Some people with a normal BMI are still not healthy. Other people with a high BMI may be healthy. Most of the time, a person with a higher BMI is less healthy and will need more care. Ask your doctor for their view of your total health during a well visit or physical. Being overweight or having a high BMI can hurt many parts of your body. Learn about your BMI and how your weight changes your health risks. Then you can make changes to keep yourself as healthy as you can. General Weighing too much can be very harmful to your body. It can cause many illnesses and can make it hard to move about. Blood Sugar You have a greater chance of having high blood sugar or diabetes if you weigh too much. Your body normally makes a hormone called insulin. The insulin allows your body to use the sugar in your blood. ?? The cells in your body may not be able to use insulin. Then your cells cannot get the sugar fromyour bloodstream that they need for energy. Your pancreas has to work extra hard to try and make enough insulin to keep your blood sugar healthy. ?? If you lose weight and exercise, your body is able to control your blood sugar levels better. You may not need as much insulin to keep your blood sugar levels healthy. Your Heart Being overweight makes your heart work harder. ?? The blood vessels that bring blood to your heart muscle may become narrow or blocked and cause aheart attack or your heart may not pump as well as it should. Your heart rate may not be normal. ?? Losing weight can lower your chances of having problems with your heart. High Blood Pressure Your heart has to work harder to pump blood through a larger body and to make sure all of your cells have the oxygen they need. ?? As your heart has to work harder, your blood pressure goes up. ?? Being overweight can also harm your kidneys and this may also raise your blood pressure. ?? You may be able to lower your blood pressure through weight loss and routine exercise. Stroke Strokes are more likely to happen when someone has high blood pressure, heart problems, high blood sugar, or high cholesterol. ?? Being overweight puts you at a higher risk for all of these health problems. These problems put you at a higher risk for having a stroke. ?? Losing weight may help lower your blood pressure, which is the biggest risk factor for a stroke.It also helps lower the other risk factors. Cholesterol Your cholesterol level is likely to be higher if you are overweight. ?? This can lead to narrowing of the blood vessels in your heart, neck, or other parts of your body. Then you may have chest pain or signs of low blood flow to a certain area. It can also lead to a heart attack or stroke. ?? Lowering your weight and changing what you eat may change your cholesterol levels. Your Liver and Kidneys You are more likely to have certain problems with your liver or kidneys if you have a high BMI. ?? Fatty liver disease is caused by a buildup of fat in your liver. Then your liver may not work aswell as it should. ?? You are at a higher risk for diabetes if you are overweight. This illness can cause kidney problems. ?? There is no exact way to treat fatty liver disease. By losing weight, you may keep your liver from getting any worse and help your liver work better. ?? By losing weight, you lower your chance of having kidney problems. If you already have kidney problems, weight loss may help keep your disease from getting worse. Bone and Joint Problems Weighing too much can put a lot of stress on your joints. ?? The extra weight may make the cartilage wear away more quickly from your bones. Your cartilage lines the surfaces of your bones to help your joints glide more easily. ?? When your cartilage is worn, your joints become stiff and sore. ?? Losing weight and exercising is one of the best ways to treat joint pain and stiffness. It can also ease the stress on your hips, knees, and back. Cancer Risk ?? Gaining weight and poor health habits raise your risk for some kinds of cancer. ?? Healthy eating and exercise may lower your risk for some kinds of cancer. Sleep With a high BMI, you may have extra fat around your neck. This can make your airway smaller and putyou at risk for a problem called sleep apnea. With this problem, your breathing starts and stops when you are sleeping. ?? Problems with sleep apnea can lead to snoring, feeling sleepy during the day, problems with focusing, and heart problems. ?? Losing weight can lower the amount of fat around your neck and ease sleep apnea problems. Your weight can affect how often you have a period. It may also make it harder for you to get . A high BMI can cause problems for both mom and baby. ?? If you are overweight and you are at a higher risk for high blood sugar or high blood pressure while you are . ?? You are also more likely to have your baby early or to need a C section. ?? Losing weight before you become may lower your chance for these problems. If you are , talk to your doctor before you try to lose weight. Depression You are more likely to suffer from depression or low mood when you have a high BMI. ?? You may have a low mood because of low self-esteem, lack of activity, lack of sleep, and health problems caused by being overweight. ?? Losing weight and finding out the reasons you overeat are some of the steps to improve your quality of life and deal with depression. Where can I learn more? Centers for Disease Control and Prevention http://www.cdc.gov/healthyweight/effects/index.html?s_cid=tw_ob245 National Heart, Lung and Blood [employer] http://www.nhlbi.nih.gov/health/health-topics/topics/obe/risks.html Weight Control Information Network http://win.niddk.nih.gov/publications/health_risks.htm Last Reviewed Date 2017-02-10 Consumer Information Use and Disclaimer This information [...] is right for you. Copyright Copyright ?? 2018 [employer] and its affiliates and/or licensors. All rights reserved. Patient Education Patient Education Health Risks of Obesity The Basics Written by the doctors and editors at [facility] What does it mean to be obese???--??Doctors use a special measure called body mass index, or BMI,to decide who is underweight, at a healthy weight, overweight, or obese. A person who is obese weighs way too much for his or her height. Your BMI will tell you whether your weight is appropriate for your height (figure 1). ?? If your BMI is between 25 and 29.9, you are overweight. ?? If your BMI is 30 or greater, you are obese. Being obese is a problem, because it increases the risks of many different health problems. It can also make it hard for you to move, breathe, and do other things that people who are at a healthy weight can do easily. Plus, being obese can be hard emotionally, because it can make you feel ashamed or like you don't fit in. What are the health risks of being obese???--??Being obese increases a person's risk of developing many health problems. Here are just a few examples: ?? Diabetes ?? High blood pressure ?? High cholesterol ?? Heart disease (including heart attacks) ?? Stroke ?? Sleep apnea (a disorder in which you stop breathing for short periods while asleep) ?? Asthma ?? Cancer Does being obese shorten a person's life???--??Yes. Studies show that people who are obese younger than people who are a healthy weight. They also show that the risk of goes up the heavier a person is. The degree of increased risk depends on how long the person has been obese, and on whatother medical problems he or she has. People with central obesity might also be at risk of dying younger. Central obesity means carrying extra weight in the belly area, even if the BMI is normal. Should I see a doctor or nurse???--??Yes. If you are overweight or obese, see your doctor or nurse.He or she might have suggestions on ways to lose weight. Are there medical treatments that can help me lose weight???--??Yes. There are medicines and surgery to help with weight loss. But those treatments are only for people with severe obesity who have not been able to lose weight through diet and exercise. Also, weight loss treatments do not take the place of diet and exercise. People who have those treatments must also change how they eat and how active they are. What can I do to prevent the problems caused by being obese???--??The obvious answer is that you can lose weight. But even if weight loss is not possible, you can improve your health and reduce your risk if you: ?? Become more active - Many types of physical activity can help, including walking. You can start with a few minutes a day and add more as you get stronger. ?? Improve your diet - No single diet turns out to be better than any other. It is healthy to have regular meal times and smaller portions, and not to skip meals. Avoid sweets and processed snack foods, and instead eat more vegetables and fruits. ?? Quit smoking (if you smoke) - Some people start eating more after they stop smoking, so try to make healthy food choices. Even if it increases your appetite, quitting smoking is still one of the best things you can do to improve your health. ?? Limit alcohol - Drink no more than 1 drink a day if you are woman, and no more than 2 drinks a day if you are a man. What causes obesity???--??The thing that increases a person's risk the most is having an unhealthy lifestyle. Most people become obese because they simply eat too much, make unhealthy food choices, and move too little. That's especially true of people who watch too much TV. But there are also otherthings that seem to increase the risk of obesity that many people do not know about. Here are some things that might affect a person's chance of becoming obese: ?? Mom's habits during and after - Women who eat a lot of calories, have diabetes, or smoke during have a higher chance of having babies who grow up to be obese. Also, babies who drink formula might be more likely than breastfed babies to be obese later in life. ?? Habits and weight gain during childhood - People who are overweight or obese as children or as teens are more likely to be obese as adults. ?? Sleeping too little - People who do not get enough sleep are more likely to become obese than people who sleep enough. ?? Taking certain medicines - Long-term use of certain medicines, such as some medicines to treat depression, can cause a lot of weight gain. ?? Certain hormonal conditions - Some hormonal problems can increase the risk of becoming obese. For example, women with a condition called polycystic ovary syndrome often gain weight, along with having other symptoms like irregular periods. But hormonal conditions are to blame for only a tiny fraction of cases of obesity. What if I want to have children???--??If you want to have children, you should know that being obese can make it hard for a woman to get . It can also impair a man's ability to have sex, especially if the obese man has high blood pressure or diabetes. What's more, children born to obese parents have a high risk of being obese themselves. What if my child is obese???--??In children, obesity has many of the same risks as it does in adults. For example, it can increase the risk of diabetes, high blood pressure, asthma, and sleep apnea. It can also cause added problems related to childhood. For example, obesity can make children grow faster than normal and speed up sexual development in girls. All topics are updated as new evidence becomes available and our peer review process is complete. This topic retrieved from [employer] on: Dec 25, 2017. Topic 86270 Version 10.0 Release: 26.4.7 - C26.268 ?2018??[employer]. and/or its affiliates.??All rights reserved. figure 1: Your body mass index (BMI) Find your height (in feet and inches) in the top row. Then find your weight (in pounds) in the first column. Now find where the column for your height and the row for your weight meet. That is your BMI. For example, if you are 9-gzzs-8-inches tall and you weigh 260 pounds, your BMI is 38. You can also go online to www.[employer]/patients and search for BMI. There you will find a calculator that will tell you what your BMI is if you type in your height and weight. Graphic 30718 Version 3.0 Consumer Information Use and Disclaimer This information [...] that is right for you.The use of [employer] content is governed by the [employer] Terms of Use. ??2018 [employer]. All rights reserved. Copyright ?2018??[employer] and/or its affiliates.??All rights reserved. Patient Education Patient Education High Blood Pressure in Adults The Basics Written by the doctors and editors at [employer] What is high blood pressure???--??High blood pressure is a condition that puts you at risk for heart attack, stroke, and kidney disease. It does not usually cause symptoms. But it can be serious. When your doctor or nurse tells you your blood pressure, he or she will say 2 numbers. For instance, your doctor or nurse might say that your blood pressure is 140 over 90. The top number is the pressure inside your arteries when your heart is zain. The bottom number is the pressure insideyour arteries when your heart is relaxed. The table shows how doctors and nurses define high and normal blood pressure (table 1). Elevated blood pressure is a term doctors or nurses use as a warning. People with elevated blood pressure do not yet have high blood pressure. But their blood pressure is not as low as it should be for good hea lth. How can I lower my blood pressure???--??If your doctor or nurse has prescribed blood pressure medicine, the most important thing you can do is to take it. If it causes side effects, do not just stop taking it. Instead, talk to your doctor or nurse about the problems it causes. He or she might be able to lower your dose or switch you to another medicine. If cost is a problem, mention that too. He or she might be able to put you on a less expensive medicine. Taking your blood pressure medicine can keep you from having a heart attack or stroke, and [...] process is complete. This topic retrieved from [employer] on: Dec 25, 2017. Topic 04382 Version 12.0 Release: 26.4.7 - C26.268 ?2018??[employer] and/or its affiliates.??All rights reserved. table 1: Definition of normal and high blood pressure Level Top number Bottom number High 130 or above 80 or above Elevated 120 to 129 79 or below Normal 119 or below 79 or below ?? These definitions are from the [place] [employer]/[place] [employer]. Other expert groups might use slightly different definitions. ?? Elevated blood pressure is a term doctor or nurses use as a warning. It means you do not yet have high blood pressure, but your blood pressure is not as low as it should be for good health. Graphic 84389 Version 6.0 Consumer Information Use and Disclaimer [...] that is right for you.The use of [employer] content is governed by the [employer] Terms of Use. ??2018 [employer]. All rights reserved. Copyright ?2018??[employer]. and/or its affiliates.??All rights reserved. documented in this encounter Progress Notes * ZEB Nunn - 06/07/2018 11:20 AM CDT Images from the original note were not included. [facility] OFFICE VISIT Reason for Visit: New Patient and Hyperlipidemia History of Present Illness: 53 yo male here today to establish care. He has a medical hx of HTN, hyperlipidemia, obesity and dermatitis. Started weight watchers in Mar 2017 and lost 25 lbs. 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 In process of restarting diet/weight watchers/calorie counting and exercise. He is due for routine fasting labs and routine screening colonoscopy. These will be ordered today. He c/o some left shoulder pain that started about 2 months ago. He notices the pain is worse tryingto lift heavy objects (notices left shoulder/arm is weaker as well). He states pain is worse after external rotation of his left shoulder. Pt states pain is located on back of his left arm. At times,he states pain radiates down his left arm. He denies any trauma or injury of his right shoulder. He is treated for HTN with amlodipine 5 mg. BP is sl elevated at today's visit. We will recheck andif remains elevated will consider increasing amlodipine to 10 mg once daily. He denies any chest pain, shortness breath, headache, dizziness, heart palpitations or lower extremity edema. He tolerateshis amlodipine well denies any bothersome side effects. He is treated for hyperlipidemia with pravastatin. Tolerates this medication well and is due to have his lipids rechecked. Denies any bothersome side effects including muscle aches. ROS: Review of Systems Constitutional: Negative for chills and fever. HENT: Negative for congestion and hearing loss. Eyes: Negative for blurred vision and double vision. Respiratory: Negative for cough, shortness of breath and wheezing. Cardiovascular: Negative for chest pain, palpitations and leg swelling. Gastrointestinal: Negative for abdominal pain and vomiting. Genitourinary: Negative for dysuria and urgency. Musculoskeletal: Positive for joint pain. Skin: Negative for itching and rash. Neurological: Negative for dizziness and headaches. Psychiatric/Behavioral: Negative for depression. The patient is not nervous/anxious. Medications: Current Outpatient Medications: ??? amlodipine 10 MG tablet, Take 1 tablet (10 mg total) by mouth daily., Disp: 90 tablet, Rfl: 0 ??? aspirin 81 MG tablet, Take by mouth daily., Disp: , Rfl: ??? cetirizine (ZYRTEC ALLERGY) 10 MG tablet, , Disp: , Rfl: ??? fish oil 1000 MG Cap capsule, , Disp: , Rfl: ??? Magnesium 100 MG Tab, Take by mouth daily., Disp: , Rfl: ??? pravastatin 10 MG tablet, Take 1 tablet (10 mg total) by mouth nightly at bedtime., Disp: 90 tablet, Rfl: 3 ??? triamcinolone 0.1 % lotion, , Disp: , Rfl: ??? amoxicillin 500 MG capsule, TK ONE C PO Q 8 H UNTIL GONE, Disp: , Rfl: 0 Allergies: No Known Allergies Medical [...] and Sexual Activity ??? Alcohol use: Yes Alcohol/week: 2.0 oz Types: 2 Cans of beer per week Frequency: 2-3 times a week Drinks per session: 1 or 2 ??? Drug use: No ??? Sexual activity: Yes Partners: Female Lifestyle ??? Physical activity: Days per week: Not on file Minutes per session: Not on file ??? Stress: Not on file Relationships ??? Social connections: Talks on phone: Not on file Gets together: Not on file Attends hindu service: Not on file Active member of [...] No distress. HENT: Head: Normocephalic and atraumatic. Mouth/Throat: No oropharyngeal exudate. Eyes: Conjunctivae and EOM are normal. Pupils [...] motion. He exhibits no edema or deformity. Some mild tenderness with palpation noted to right posterior shoulder. No bruising, redness or swelling. Some tenderness noted to posterior shoulder with trying to reach behind head. Negative empty can test. Other than the above- mentioned symptoms no decrease or pain with range of motion of right shoulder. Lymphadenopathy: He has no cervical adenopathy. Neurological: He is alert and oriented to person, place, and time. Gait normal. Skin: Skin is warm and dry. No rash noted. He is not diaphoretic. No erythema. No pallor. Psychiatric: Mood and affect normal. Nursing note and vitals reviewed. Filed Vitals: 06/07/18 1135 BP: 146/86 Pulse: 60 Resp: 16 Temp: 97.2 ??F (36.2 ??C) SpO2: 99% Weight: (!) 168.3 kg (371 lb) Height: 6' 3 (1.905 m) Labs: Labs Reviewed Diagnoses/Impression: 1. Hypertension, benign amlodipine 10 MG tablet Chronic 2. Colon cancer screening AMB REF TO GASTROENTEROLOGY 3. Healthcare maintenance 4. Prostate cancer screening 5. Screening for endocrine disorder 6. BMI 45.0-49.9, adult (CMS/HCC) 7. Morbid obesity (CMS/HCC) 8. Mixed hyperlipidemia pravastatin 10 MG tablet Chronic 9. Acute pain of left shoulder XR SHOULDER LT 3V Recommendations and Plan: 1. Colon cancer screening - AMB REF TO GASTROENTEROLOGY 2. Healthcare maintenance Routine fasting labs ordered. More plan after results. 3. Prostate cancer screening PSA ordered. More plan after results. 4. Screening for endocrine disorder 5. BMI 45.0-49.9, adult (CMS/HCC) 6. Hypertension, benign - amlodipine 10 MG tablet; Take 1 tablet (10 mg total) by mouth daily. Dispense: 90 tablet; Refill:0 Amlodipine increased to 10 mg once daily. Patient is to follow-up in 1 month for blood pressure check. 7. Morbid obesity (CMS/HCC) Discussed therapeutic lifestyle and dietary changes conducive to weight loss with patient today. Encouraged to continue with weight watchers/calorie counting and will reevaluate in 1 month at follow-up. 8. Mixed hyperlipidemia - pravastatin 10 MG tablet; Take 1 tablet (10 mg total) by mouth nightly at bedtime. Dispense: 90 tablet; Refill: 3 Heart healthy diet discussed and encouraged. He is to continue pravastatin as ordered. Lipids to bechecked. More plan after results if needed. 9. Acute pain of left shoulder - XR SHOULDER LT 3V; Future X-ray ordered today. More plan after results if needed. PT offered today. Patient declined at this time. Etiology of shoulder pain unclear at this time. Will re-eval at 1 month follow-up. Orders Placed This Encounter ??? XR SHOULDER LT 3V ??? Ambulatory referral to Gastroenterology ??? pravastatin 10 MG tablet ??? amlodipine 10 MG tablet Cannot display discharge medications since this is not an admission. PCP: ZEB Nunn 06/10/2018 documented in this encounter Plan of Treatment Upcoming Encounters Date Type Department Care Team (Late st Contact Info) Description 03/28/2024 7:30 AM [facility] Hospital Encounter [facility] [place] [address] Antwan Stone DPM [address] [place] [address] 03/28/2024 7:30 AM [facility] Anesthesia [place] [address] Shanelle Avila, CUT OUT MARKER [address] [place] [address] 03/28/2024 7:30 AM ELECTRONICS WORKER - 03/28/2024 8:48 AM [facility] [place] [address] Antwan Stone DPM [address], [place] [address] REMOVAL OF HARDWARE LEFT FOOT 04/05/2024 8:30 AM ELECTRONICS WORKER Office Visit [facility], [facility] [address] [place] [address] Dominick Mccloud MD Three [facility]. [facility] [address] [place] [address] Scheduled Procedures Name Priority Associated Diagnoses Date/Ti me REMOVAL PLATE SCREW OR PIN SCHED BY FAX 02/08/24 [facility] PHONE ASSESS 03/28/2024 7:30 AM ELECTRONICS WORKER Scheduled Referrals Name Type Priority Associated Diagnoses Orde r Schedule Ambulatory referral to Gastroenterology Referral Routine Colon cancer screening Ordered: 06/07/2018 documented as of this encounter Visit Diagnoses Diagnosis Hypertension, benign- Primary Essential hypertension, benign Colon cancer screening Special screening for malignant neoplasms, colon Healthcare maintenance Routine general medical examination at a health care facility Prostate cancer screening Special screening for malignant neoplasm of prostate Screening for endocrine disorder BMI 45.0-49.9, adult (CMS/HCC HHS/HCC) Body Mass Index 45.0-49.9, adult Morbid obesity (CMS/HCC HHS/HCC) Morbid obesity Mixed hyperlipidemia Acute pain of left shoulder Painful orthopaedic hardware (CMS/HCC)- Primary documented in this encounter Care Teams Writer Technical Publications Relationship Specialty Start Date End Date Clara Stanley APNP [address] [place] [id number] PCP - General NURSE PRACTITIONER 06/01/18 documented as of this encounter
--- OUTSIDE RECORDS SUMMARY | 2024-03-02 03:25 | XMS_ITS | Encounter Summary ---
Author Organization [facility] Address [address] [place] [address]. [place], [place] [id number] [place] [address] Care Team Providers Care Trumpet Player Name Role Phone Clara Stanley Primary Care Provider [phone] Encounter Details Date Type Department Care Team (Latest Contact Info) Description 06/08/2018 6:55 PM CDT - 06/08/2018 11:59 PM CDT Hospital Encounter [facility] [place] [address] Clara Stanley APNP [facility] [place], [place] [id number] Discharge Disposition: Home or Self Care (Routine [...] 01/05/2014 9 documented as of this encounter Progress Notes * ZEB Nunn - 06/08/2018 10:08 PM CDT Add on HGB A1C to labs please. Lipids mildly elevated. He needs to increase exercise and follow a heart healthy/low cholesterol diet. Other labs unremarkable. documented in this encounter Plan of Treatment Upcoming Encounters Date Type Department Care Team (Late st Contact Info) Description 03/28/2024 7:[address] [facility] Hospital Encounter [facility] [address] Antwan Stone DPM [address], [place] [address] 03/28/2024 7:30 AM TOP LIFT NAILER Anesthesia Event [place] [address] Shanelle Avila, ASBESTOS CLOTH INSPECTOR [address] [place] [address] 03/28/2024 7:30 AM TOP LIFT NAILER - 03/28/2024 8:48 AM TOP LIFT NAILER Surgery [facility] OR [address] [facility] [place] [address] Antwan Stone, DPM [address] [place] [address] REMOVAL OF HARDWARE LEFT FOOT 04/05/2024 8:30 AM TOP LIFT NAILER Office Visit [place] [facility], [address] [place] [address] Dominick Mccloud MD Three [facility]. [facility] [address] [place] [address] Scheduled Procedures Name Priority Associated Diagnoses Date/Ti me REMOVAL PLATE SCREW OR PIN SCHED BY FAX 02/08/24 [facility] PHONE ASSESS 03/28/2024 7:30 AM TOP LIFT NAILER documented as of this encounter Procedures Procedure Name Priority Date/Time Associated Diagnosis Comments TSH W/REFLEX Routine 06/08/2018 10:57 AM CDT Mixed hyperlipidemia Encounter for preventive health examination Morbid obesity ([facility] HHS/HCC) Screening for endocrine disorder Prostate cancer screening PROSTATE SPECIFIC ANTIGEN,TOTAL Routine 06/08/2018 10:57 AM CDT Mixed hyperlipidemia Encounter for preventive health examination Morbid obesity ([facility] HHS/HCC) Screening for endocrine disorder Prostate cancer screening COMPREHENSIVE METABOLIC PANEL Routine 06/08/2018 10:57 AM CDT Mixed hyperlipidemia Encounter for preventive health examination Morbid obesity ([facility] HHS/HCC) Screening for endocrine disorder Prostate cancer screening LIPID PANEL Routine 06/08/2018 10:57 AM CDT Mixed hyperlipidemia Encounter for preventive health examination Morbid obesity ([facility] HHS/HCC) Screening for endocrine disorder Prostate cancer screening CBC W/DIFF AUTOMATED Routine 06/08/2018 10:57 AM CDT Mixed hyperlipidemia Encounter for preventive health examination Morbid obesity ([facility] HHS/HCC) Screening for endocrine disorder Prostate cancer screening URIC ACID BLOOD Routine 06/08/2018 10:57 AM CDT Mixed hyperlipidemia Encounter for preventive health examination Morbid obesity ([facility] HHS/HCC) Screening for endocrine disorder Prostate cancer screening documented in this encounter Results * PSA, TOTAL (06/08/2018 10:57 AM CDT) PSA 1.23 <4.00 NG/ML 06/08/2018 8:09 PM CDT [facility] Comment: Test was performed using the Siemens method. ??Results obtained with other assay methods or kits cannot be used interchangeably with results obtained by the Siemens method. 06/08/2018 10:5 7 AM CDT [facility] Final Resul t [facility] [address] [place] [address], [place] [phone] * URIC ACID BLOOD (06/08/2018 10:57 AM CDT) URIC ACID 6.0 3.5 - 7.2 MG/DL 06/08/2018 8:07 PM CDT [facility] 06/08/2018 10:5 7 AM CDT [facility] Final Resul t [facility] [address] [place] [address], [place] [phone] * TSH W/REFLEX (06/08/2018 10:57 AM CDT) TSH 2.620 0.358 - 3.74 uIU/ML 06/08/2018 8:07 PM CDT [facility] Comment: HIGH DOSES OF BIOTIN MAY INTERFERE WITH THIS TEST RESULT. CORRELATION TO CLINICAL HISTORY AND PRESENTATION RECOMMENDED. FREE T4 NOT INDICATED 06/08/2018 10:5 7 AM CDT us Clara Stanley ZEB [facility] Final Resul t [facility] [address] [place] [address], * (ABNORMAL) LIPID PANEL (06/08/2018 10:57 AM CDT) CHOLESTEROL 205(H) <200 MG/DL 06/08/2018 8:07 PM CDT [facility] TRIGLYCERIDES 115 <150 MG/DL 06/08/2018 8:07 PM CDT [facility] HDL 47 >40.0 MG/DL 06/08/2018 8:07 PM CDT [facility] LDL (CALCULATED) 135(H) <100 MG/DL 06/08/2018 8:07 PM CDT [facility] NON HDL CHOLESTEROL 158(H) <130 MG/DL 06/08/2018 8:07 PM CDT [facility] CHOL/HDL RATIO 4.4 0.0 - 4.5 06/08/2018 8:07 PM CDT [facility] VLDL CALCULATION 23 5 - 55 MG/DL 06/08/2018 8:07 PM CDT [facility] LIPID INTERPRETATION 06/08/2018 8:07 PM CDT [facility] Comment: NIH CONCENSUS REPORT RECOMMENDATIONS: [...] 06/08/2018 10:5 7 AM CDT us Clara [facility] Final Resul t [facility] [address] [place] [address], * (ABNORMAL) COMPREHENSIVE METABOLIC PANEL (06/08/2018 10:57 AM CDT) GLUCOSE 100(H) 70 - 99 MG/DL 06/08/2018 8:07 PM CDT [facility] BUN 10 7 - 18 MG/DL 06/08/2018 8:07 PM CDT [facility] CREATININE S/P/B 0.76 0.7 - 1.3 MG/DL 06/08/2018 8:07 PM CDT [facility] SODIUM S/P/B 139 136 - 145 MMOL/L 06/08/2018 8:07 PM CDT [facility] POTASSIUM S/P/B 4.5 3.5 - 5.1 MMOL/L 06/08/2018 8:07 PM CDT [facility] CHLORIDE S/P/B 108 100 - 108 MMOL/L 06/08/2018 8:07 PM CDT [facility] CO2 23.8 21 - 32 MMOL/L 06/08/2018 8:07 PM CDT [facility] CALCIUM S/P/B 9.3 8.5 - 10.1 MG/DL 06/08/2018 8:07 PM CDT [facility] BILIRUBIN TOTAL S/P/B 0.4 0.2 - 1.2 MG/DL 06/08/2018 8:07 PM CDT [facility] TOTAL PROTEIN S/P/B 7.8 6.4 - 8.2 G/DL 06/08/2018 8:07 PM CDT [facility] ALBUMIN S/P/B 4.1 3.4 - 5.0 G/DL 06/08/2018 8:07 PM CDT [facility] AST 19 15 - 37 U/L 06/08/2018 8:07 PM CDT [facility] ALT 27 16 - 60 U/L 06/08/2018 8:07 PM CDT [facility] ALKALINE PHOSPHATASE S/P/B 102 50 - 136 U/L 06/08/2018 8:07 PM CDT [facility] ANION GAP 11.7 8 - 20 MMOL/L 06/08/2018 8:07 PM CDT [facility] BUN CREATININE RATIO 13.2 6 - 26 06/08/2018 8:07 PM CDT [facility] A/G RATIO 1.1 1.0 - 2.0 RATIO 06/08/2018 8:07 PM CDT [facility] EGFR NON-AFR. AMER. >90 >90 ML/MIN/1.7 3 M2 06/08/2018 8:07 PM CDT [facility] EGFR AFR. AMER. >90 >90 ML/MIN/1.7 3 M2 06/08/2018 8:07 PM CDT [facility] Comment: NOTE: eGFR is not calculated for patients <18 years of age. This is an estimated GFR (CKD EPI) and should not be used for calculating drug doses. 06/08/2018 10:5 7 AM CDT us [facility] Final Resul t [facility] [address] [place] [address], [place] [phone] * (ABNORMAL) CBC W/DIFF AUTOMATED (06/08/2018 10:57 AM CDT) WBC 8.2 4.5 - 11.0 x10'3/uL 06/08/2018 7:43 PM CDT [facility] RBC 5.04 4.70 - 6.10 x10'6/uL 06/08/2018 7:43 PM CDT [facility] HGB 14.7 14.0 - 18.0 G/DL 06/08/2018 7:43 PM CDT [facility] HCT 45.1 43.0 - 54.0 % 06/08/2018 7:43 PM CDT [facility] MCV 89.5 80.0 - 94.0 FL 06/08/2018 7:43 PM CDT [facility] MCH 29.2 27.0 - 31.0 PG 06/08/2018 7:43 PM CDT [facility] MCHC 32.6 32.0 - 36.0 G/DL 06/08/2018 7:43 PM CDT [facility] RDW 13.4 11.5 - 14.5 % 06/08/2018 7:43 PM CDT [facility] PLT 250 130 - 400 x10'3/uL 06/08/2018 7:43 PM CDT [facility] MPV 12.7(H) 9.3 - 12.2 FL 06/08/2018 7:43 PM CDT [facility] DIFFERENTIAL TYPE AUTOMATED DIFFERENTIAL 06/08/2018 7:43 PM CDT [facility] NEUTROPHILS % 70.2 % 06/08/2018 7:43 PM CDT [facility] LYMPHOCYTES % 13.8 % 06/08/2018 7:43 PM CDT [facility] MONOCYTES % 9.4 % 06/08/2018 7:43 PM CDT [facility] EOSINOPHILS 5.5 % 06/08/2018 7:43 PM CDT [facility] BASOPHILS 0.7 % 06/08/2018 7:43 PM CDT [facility] IMMATURE GRANS % 0.4(H) 0 % 06/09/19 19 7:43 PM CDT [facility] ABS. NEUTROPHILS TOTAL 5.74 1.80 - 7.70 x10'3/uL 06/08/2018 7:43 PM CDT [facility] ABS. LYMPHOCYTES 1.13 1.00 - 4.80 x10'3/uL 06/08/2018 7:43 PM CDT [facility] ABS. MONOCYTES 0.77 0.30 - 0.82 x10'3/uL 06/08/2018 7:43 PM CDT [facility] ABS. EOSINOPHILS 0.45 0.04 - 0.54 x10'3/uL 06/08/2018 7:43 PM CDT [facility] ABS. BASOPHILS 0.06 0.01 - 0.08 x10'3/uL 06/08/2018 7:43 PM CDT [facility] ABS. IMMATURE GRANULOCYTES 0.03 0.00 - 0.03 x10'3/uL 06/08/2018 7:43 PM CDT [facility] 06/08/2018 10:5 7 AM CDT [facility] Final Resul t [facility] [address] [place] [address], documented in this encounter Visit Diagnoses Diagnosis Mixed hyperlipidemia Encounter for preventive health examination Routine general medical examination at a health care facility Morbid obesity (CMS/HCC HHS/HCC) Morbid obesity Screening for endocrine disorder Prostate cancer screening Special screening for malignant neoplasm of prostate Painful orthopaedic hardware (CMS/HCC)- Primary documented in this encounter Care Teams Trumpet Player Relationship Specialty Start Date End Date Clara Stanley APNP [address] [place] [address] PCP - General NURSE PRACTITIONER 06/01/18 documented as of this encounter
--- OUTSIDE RECORDS SUMMARY | 2024-03-02 03:25 | XMS_ITS | Encounter Summary ---
Author Organization [facility] Address [address] [place] [address]. [place], [place] [id number] [place] [address] Care Team Providers Care Ornamental Metal Worker Apprentice Name Role Phone Clara Stanley Primary Care Provider [phone] Reason for Visit * Reason Onset Date Comments Lab Results 06/09/2018 Encounter Details Date Type Department Care Team (Late st Contact Info) Description 06/09/2018 Telephone [facility] Family & Internal Medicine [place] [phone] [place] [phone] Clara Stanley APNP [facility] [place] [address] Lab Results Social History Tobacco [...] Progress Notes * Cheri Steiner RN - 06/11/2018 9:17 AM CDT Spoke to patient; verbalized understanding. * Cheri Steiner RN - 06/11/2018 9:12 AM CDT Mailbox full and unable to reach patient. 06/11/18 * Jadyn Riley MA - 06/09/2018 3:06 PM CDT A1C ADDED-SJS NO ANSWER , MAIL BOX FULL-SJS ----- Message from ZEB Nunn sent at 06/08/2018 10:08 PM CDT ----- Add on HGB A1C to labs please. Lipids mildly elevated. He needs to increase exercise and follow a heart healthy/low cholesterol diet. Other labs unremarkable. documented in this encounter Plan of Treatment Upcoming Encounters Date Type Department Care Team (Late st Contact Info) Description 03/28/2024 7:30 AM [facility] Hospital Encounter [facility] [place] [address] Antwan Stone DPM [address], [place] [address] 03/28/2024 7:30 AM CURING 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 Anesthesia Event [facility] [place] [address] Shanelle Avila, FIRESTOPPER INSTALLER [address] [place] [address] 03/28/2024 7:30 AM CURING 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 - 03/28/2024 8:48 AM CURING 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 Surgery [facility] OR [address] [facility] [place] [address] Antwan Stone DPM [address] [place] [address] REMOVAL OF HARDWARE LEFT FOOT 04/05/2024 8:30 AM CURING 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 Office Visit [facility] THREE [facility], [address] [place] [address] Dominick Mccloud MD Three [facility]. [facility] [address] [place] [address] Scheduled Procedures Name Priority Associated Diagnoses Date/Ti me REMOVAL PLATE SCREW OR PIN SCHED BY FAX 02/08/24 [facility] PHONE ASSESS 03/28/2024 7:30 AM CURING 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 documented as of this encounter Results * HEMOGLOBIN, GLYCOSYLATED (06/08/2018 10:57 AM CDT) HGB A1C 5.5 4.2 - 6.3 % 06/09/2018 5:38 PM CDT [facility] Comment: ADA GUIDELINES 2010 5.7 TO 6.4% INCREASED RISK OF DIABETES > OR = 6.5% CONSISTENT WITH DIABETES ESTIMATED AVG GLUCOSE 111 mg/dL 06/09/2018 5:38 PM CDT [facility] 06/08/2018 10:5 7 AM CDT [facility] Final Resul t [facility] [address] [place] [address], [place] [phone] documented in this encounter Visit Diagnoses Diagnosis Hyperglycemia- Primary Other abnormal glucose Painful orthopaedic hardware (CMS/HCC)- Primary documented in this encounter Care Teams Ornamental Metal Worker Apprentice Relationship Specialty Start Date End Date Clara Stanley APNP [facility] [place] [address] PCP - General NURSE PRACTITIONER 06/01/18 documented as of this encounter
--- OUTSIDE RECORDS SUMMARY | 2024-03-02 03:25 | XMS_ITS | Encounter Summary ---
Author Organization [facility] Address [address] [place] [address]. [place] [address] [place] [address] Care Team Providers Care E Commerce Manager Name Role Phone Jerry Fatima MD Primary Care Provider Yan alvarado Encounter Details Date Type Department Care Team (Late Contact Info) Description 09/05/2014 Abstract [facility] Conversion Marjan Lai NP [address] [place] [address] Social History Tobacco Use Types Packs/Day Years Used Date Smoking Tobacco: Never Assessed Sex and Gender Information Value Date Recorded Sex Assigned at Not on file Legal Sex Male 9:00 PM CDT Gender Identity Not on file Sexual Orientation Not on file documented as of this encounter Progress Notes * Marjan Lai NP - 09/05/2014 12:00 AM CDT Patient Name: Kwaku Kulkarni : 1965 Date: 09/05/2014 Dictated By: Keke Burr RN Created by Keke Burr on 09/05/14 - 10:53 am: Patient called to request a refill of Xanax 0.5 mg1/2-1 tablet BID PRN #[id number]. He has an appointment 09-13-14. VAllen Lai CNP to fill x1. Rx called in. Electronically approved by: Keke Burr Date: 09/05/14 10:55 R ACCOUNT REPRESENTATIVE documented in this encounter Plan of Treatment Upcoming Encounters Date Type Department Care Team (Late st Contact Info) Description 03/28/2024 7:30 AM MAJOR ACCOUNT REPRESENTATIVE Hospital Encounter [facility] [place] [place] [address] Antwan Stone, DIEGO [address], [place] [address] 03/28/2024 7:30 AM MAJOR ACCOUNT REPRESENTATIVE Anesthesia Event [place] [address] Shanelle Avila, SEISMOGRAPH HELPER [address] [place] [address] 03/28/2024 7:30 AM MAJOR ACCOUNT REPRESENTATIVE - 03/28/2024 8:48 AM MAJOR ACCOUNT REPRESENTATIVE Surgery [place] [address] Antwan Stone, DIEGO [address], [place] [address] REMOVAL OF HARDWARE LEFT FOOT 04/05/2024 8:30 AM MAJOR ACCOUNT REPRESENTATIVE Office Visit [facility] [address] [place] [address] Dominick Mccloud MD Three [facility]. [facility] [address] [place] [address] Scheduled Procedures Name Priority Associated Diagnoses Date/Ti me REMOVAL PLATE SCREW OR PIN SCHED BY FAX 02/08/24 [facility] PHONE ASSESS 03/28/2024 7:30 AM MAJOR ACCOUNT REPRESENTATIVE documented as of this encounter Visit Diagnoses Not on filedocumented in this encounter Care Teams E Commerce Manager Relationship Specialty Start Date End Date Jerry Fatima MD PCP - General 01/11/15 05/31/18 documented as of this encounter
--- OUTSIDE RECORDS SUMMARY | 2024-03-02 03:25 | XMS_ITS | Encounter Summary ---
Author Organization [facility] Address [address] [place] [address]. [place], [place] [id number] [place] [address] Care Team Providers Care Lead Driver Name Role Phone Jerry Fatima MD Primary Care Provider Yan alvarado Encounter Details Date Type Department Care Team (Latest Contact Info) Description 01/19/2018 Scan [facility] , Marge Carreon MD [...] st Contact Info) Description 03/28/2024 7:30 AM TELEVISION SCRIPT WRITER Hospital Encounter [facility] [place] [address] Antwan Stone, DIEGO [address] [place] [address] 03/28/2024 7:30 AM TELEVISION SCRIPT WRITER Anesthesia Event [facility] [place] [address] Shanelle Avila, PROCESS CONTROL TECH [address] [place] [address] 03/28/2024 7:30 AM TELEVISION SCRIPT WRITER - 03/28/2024 8:48 AM TELEVISION SCRIPT WRITER Surgery [facility] [place] [address] Antwan Stone DPM [address] [place] [address] REMOVAL OF HARDWARE LEFT FOOT 04/05/2024 8:30 AM TELEVISION SCRIPT WRITER Office Visit [facility], [facility] [address] [place] [address] Dominick Mccloud MD Three [facility]. [facility] [address] [place] [address] Scheduled Procedures Name Priority Associated Diagnoses Date/Ti me REMOVAL PLATE SCREW OR PIN SCHED BY FAX 02/08/24 [facility] PHONE ASSESS 03/28/2024 7:30 AM TELEVISION SCRIPT WRITER documented as of this encounter Visit Diagnoses Not on filedocumented in this encounter Care Teams Lead Driver Relationship Specialty Start Date End Date Jerry Fatima MD PCP - General 01/11/15 05/31/18 documented as of this encounter
--- OUTSIDE RECORDS SUMMARY | 2024-03-02 03:25 | XMS_ITS | Encounter Summary ---
Author Organization [facility] Address [address] [place] [address]. [place], [place] [id number] [place] [address] Care Team Providers Care [employer] Science Teacher Name Role Phone Jerry Fatima MD Primary Care Provider Yan alvarado Encounter Details Date Type Department Care Team (Late st Contact Info) Description 09/07/2014 Abstract [facility] Conversion Md, Generic Conversion, [...] st Contact Info) Description 03/28/2024 7:30 AM FLIGHT OPERATIONS MANAGER Hospital Encounter [facility] [place] [address] Antwan Stone, DIEGO [address] [place] [address] 03/28/2024 7:30 AM FLIGHT OPERATIONS MANAGER Anesthesia Event [place] [address] Shanelle Avila, SOLICITING FREIGHT AGENT [address] [place] [address] 03/28/2024 7:30 AM FLIGHT OPERATIONS MANAGER - 03/28/2024 8:48 AM FLIGHT OPERATIONS MANAGER Surgery [facility] [place] [address] Antwan Stone DPM [address] [place] [address] REMOVAL OF HARDWARE LEFT FOOT 04/05/2024 8:30 AM FLIGHT OPERATIONS MANAGER Office Visit [facility] THREE [facility], [facility] [address] [place] [address] Dominick Mccloud MD Three [facility]. [facility] [address] [place] [address] Scheduled Procedures Name Priority Associated Diagnoses Date/Ti me REMOVAL PLATE SCREW OR PIN SCHED BY FAX 02/08/24 [facility] PHONE ASSESS 03/28/2024 7:30 AM FLIGHT OPERATIONS MANAGER documented as of this encounter Visit Diagnoses Not on filedocumented in this encounter Care Teams [employer] Science Teacher Relationship Specialty Start Date End Date Jerry Fatima MD PCP - General 01/11/15 05/31/18 documented as of this encounter
--- OUTSIDE RECORDS SUMMARY | 2024-03-02 03:41 | XMS_ITS | Referral Summary ---
Author Organization [facility] Office Center Address [address] [place] [address] Care Team Providers Care Web Marketing Specialist Name Role Phone Clara Stanley Primary Care Provider + Jasper Canchola MD Unavailable Alexis Lopez MD Unavailable Kip Del Rio MD Unavailable Jacob Flynn MD Unavailable Renetta Ballesteros NP Unavailable Encounters Date Type Department Care Team Description 02/27/[address] [phone] Beverly Rice NP Medical Question/Miscellaneous 02/25/2024 Telephone [facility] [address] [place] [address] Imelda De Leon, KAMILA 02/25/2024 2:15 PM TUBING ASSEMBLER Lab [facility] Building [address] [place] [phone] Neuroendocrine carcinoma of lung (HCC); 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) 02/18/2024 Orders Only [facility] Floor [address] [place] [address] Kip Del Rio MD Neuroendocrine carcinoma of lung (HCC) (Primary Dx); 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) 02/18/2024 Orders Only [facility] [address] [place] [phone] Princess Belindacurry Vasquez [facility] 02/18/2024 9:45 AM TUBING ASSEMBLER Lab [facility] Collection [address] [place] [address] 5 [place] [address] Neuroendocrine carcinoma of lung (HCC); 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) 01/21/2024 9:40 AM TUBING ASSEMBLER Office Visit [facility] [address] [place] [phone] Kip Del Rio MD Neuroendocrine carcinoma of lung (HCC) (Primary Dx); 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) 01/21/2024 8:45 AM TUBING ASSEMBLER Lab [facility] Lab [address] [place] [phone] Neuroendocrine carcinoma of lung (HCC); 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) 01/18/2024 Orders Only [facility] [address] [place] [phone] Cheri Leonard DNP 01/18/2024 Orders Only [facility] [address] [place] [phone] Kip Del Rio MD Neuroendocrine carcinoma of lung (HCC) (Primary Dx); 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) 12/24/2023 Orders Only [facility] [address] [place] [phone] Kip Del Rio MD 12/24/2023 12:30 PM CDT Lab [facility] [address] [place] [phone] Neuroendocrine carcinoma of lung (HCC); 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) 12/24/2023 1:20 PM CDT Office Visit [facility] [address] [place] [phone] Kip Del Rio MD 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); Neuroendocrine carcinoma of lung (HCC) 12/24/2023 12:15 PM CDT Lab [facility] Lab [address] [place] [phone] 12/22/2023 11:05 AM CDT - 12/22/2023 11:59 PM CDT Hospital Encounter [facility] [place] [address] [place] [address] Floor [address] [place] [address] 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); Neuroendocrine carcinoma of lung (HCC) Discharge Disposition: Discharge to home or self care 12/04/2023 Telephone [facility] 7th [place] [address] [place] [phone] Imelda De Leon RN 12/03/2023 Orders Only [facility] [address] [place] [address] [place] [address] [place] [phone] Kip Del Rio MD 12/03/2023 Orders Only [facility] [address] [place] [address] [place] [address] [place] [address] Naomi Bains [facility] from Last 3 Months Allergies No known active allergies Medications amLODIPine (NORVASC) 10 mg tabletIndicatio ns:hypertension Take 1 tablet (10 mg total) by mouth every morning 020 Active ascorbic acid (VITAMIN C) 1,000 mg tablet Take 1 tablet (1,000 mg total) by mouth daily Active cholecalciferol (VITAMIN D-3) 50,000 unit capsule Take 1 capsule (50,000 Units total) by mouth Active multivitamin capsule Take 1 capsule by mouth daily Active nitroglycerin (NITROSTAT) 0.[address] 1 tablet (0.4 mg total) under the tongue every 5 (five) minutes as needed 022 Active fexofenadine (HUI) 180 mg tabletIndicatio ns:Cough, persistent Take 1 tablet (180 mg total) by mouth daily 30 tablet 11 022 Active fluticasone propionate (FLONASE) 50 mcg/actuation nasal sprayIndication s:Cough, persistent Administer 2 sprays into each nostril daily 16 g 6 022 Active chlorthalidone (HYGROTON) 25 mg tablet 023 Active pravastatin (PRAVACHOL) 40 mg tablet 023 Active fluticasone-ume clidin-vilanter (Trelegy Ellipta) 100-62.5-25 mcg inhaler Inhale 1 puff daily Rinse mouth with water after use, do not swallow 60 each Active loperamide (IMODIUM A-D) 2 mg tablet Take 2 tablets ( 4 mg) after the first episode of diarrhea and 1 tablet (2 mg) after every subsequent episode for up to 8 tablets a day. Please call the office if you take 8 tablets. 90 tablet 3 Active ondansetron (ZOFRAN) 8 mg tabletIndicatio ns:Malignant neoplasm of lower lobe of right lung (HCC),Neuroendo crine carcinoma of lung (HCC) Take 1 tablet (8 mg total) by mouth every 8 (eight) hours as needed for nausea or vomiting Take 30 minutes prior to oral chemotherapy then every 8 hours as needed up to 3 doses in 24 hours if prochlorperazine does not stop nausea. 24 tablet 3 Active prochlorperazin e (Compazine) 10 mg tabletIndicatio ns:Malignant neoplasm of lower lobe of right lung (HCC),Neuroendo crine carcinoma of lung (HCC) Take 1 tablet (10 mg total) by mouth every 6 (six) hours as needed for nausea or vomiting Use first for nausea 120 tablet 3 Active montelukast (SINGULAIR) 10 mg tabletIndicatio ns:Mild intermittent asthma without complication TAKE (1) TABLET BY MOUTH ONCE DAILY IN THE EVENING. *VIAL* 30 [address] (PROTONIX) 40 mg EC tabletIndicatio ns:Cough, persistent TAKE (1) TABLET BY MOUTH DAILY. *VIAL* 30 tablet 3 024 Active ALPRAZolam (XANAX) 0.5 mg tablet Take 1 tablet by mouth 30-45 minutes before scans. Can repeat x 1 during scan if needed. 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 Do not start until day 10, then take for 5 days. Days 10-14. 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 Do not start until day 10, then take for 5 days. Days 10-14. 5 capsule 024 2023 Active Problems Problem Noted Date Diagnosed Date Morbid (severe) obesity due to excess calories 1 04/29/2021 Body mass index (BMI) 45.0-49.9, adult Radiotherapy follow-up examination 06/05/2021 Secondary malignant neoplasm of mediastinal lymp h node 01/07/2021 LAD (lymphadenopathy) 12/14/2020 LEONOR (obstructive sleep apnea) 12/02/2019 Overview (06/04/2021): Last Assessment & Plan: The patient just [...] cm water pressure. His DME is [employer]. Assessment & Plan (08/26/2023 3:23 PM CDT): The patient was encouraged to increase use of his CPAP set at 5-20 cm pressure. The patient's DME is [employer]. Assessment & Plan (09/19/2022 9:08 AM CDT): He is not using the auto titrating CPAP unit with a range of 5-20 cm water pressure and is practicing positional therapy. His DME supplier is [employer]. Assessment & Plan (08/08/2022 9:59 AM CDT): Patient will continue with positional therapy. I did encourage the patient to resume CPAP therapy at an auto titrating range of 5-20 cm water pressure. Assessment & Plan (06/06/2022 9:47 AM CDT): Patient will continue with positional therapy. I did encourage the patient to resume CPAP therapy at an auto titrating range of 5-20 cm water pressure. Assessment & Plan (02/26/2022 2:50 PM TUBING ASSEMBLER): Patient will continue with positional therapy. I did encourage the patient to resume CPAP therapy at an auto titrating range of 5-20 cm water pressure. Assessment & Plan (02/01/2021 11:11 AM TUBING ASSEMBLER): The patient has an auto titrating CPAP unit with a range of 5-20 cm water pressure. He is going to restart CPAP therapy. I will send an order to [facility] for new supplies. Assessment & Plan (10/05/2020 11:01 AM CDT): I did encourage the patient to use the auto titrating CPAP unit with a range of 5-20 cm water pressure. His DME is [employer]. Assessment & Plan (04/06/2020 9:51 AM TUBING ASSEMBLER): The patient was encouraged to resume auto titrating 5-20 cm water pressure CPAP therapy for at least 4 hours a night on 70% of the nights. The patient and I also discussed oral appliance for sleep apnea and the inspire product in depth as alternatives to CPAP therapy. The patient states that he will do some research. The patient denied need for supplies. The DME company is [employer]. The patient is benefitting from CPAP therapy. Assessment & Plan (12/02/2019 9:49 AM CDT): The patient just received his auto titrating CPAP unit with a range of 5-20 cm water pressure. His DME is [employer]. Mild intermittent asthma without complication Overview (06/04/2021): Last Assessment & Plan: The patient has a cough variant of asthma. He will continue with the Pepcid, Flonase and Symbicort. Last Assessment & Plan: The patient has a cough variant of asthma. He will continue with the Pepcid, Flonase and Symbicort. Last Assessment & Plan: The patient has a cough variant of asthma. He will continue with the Pepcid, Flonase and Symbicort. Assessment & Plan (08/26/2023 3:24 PM CDT): Patient will continue with Trelegy one inhalation once a day. The patient will continue with the albuterol inhaler nebulizer as needed 4 times a day for shortness of breath. The patient continue with Singulair. The patient is also taking Hui. Assessment & Plan (09/19/2022 9:08 AM CDT): The patient has a cough variant of asthma. I will order albuterol for the nebulizer as well as a home nebulizer for him. He will continue with Trelegy 1 puff daily. He will continue with Singulair 10 mg daily, Hui and Realtris. I did tell him to stop the Mucinex and I will give him a trial of Daliresp to see if this will help him clear his secretions. Assessment & Plan (08/08/2022 10:00 AM CDT): Patient continue to use Trelegy one inhalation once a day. Patient continue to use his albuterol as needed up to 4 times a day for shortness of breath. Patient continue with Singulair, Protonix, Hui, and Flonase. Assessment & Plan (06/06/2022 9:51 AM CDT): The patient will continue with Trelegy 1 puff daily and rinse mouth after use. Patient will continue with Albuterol up to 4 times a day, Singulair, Protonix, Hui, and Flonase. The patient is going to get the IgE level today. I did refer him to Dr. Amador. Assessment & Plan (02/26/2022 2:51 PM TUBING ASSEMBLER): The patient was given a trial of Trelegy 1 puff daily and rinse mouth after use. Patient was educated on the need to stop Symbicort while on the trial. He will call into the office if he wants a prescription. Patient will continue to follow with Cardiology for testing to rule out heart related issues. Patient was also ordered albuterol up to 4 times a day, Singulair, Protonix, Hui, IgE, Flonase, and a PFT. Assessment & Plan (02/01/2021 11:10 AM TUBING ASSEMBLER): I did recommend that the patient try to use the Symbicort b.i.d. for period of time to see if this will resolve the coughing. Continues to use the albuterol on a p.r.n. basis. He continues on Flonase and Zyrtec daily. He does have some reflux symptoms and I did recommend that he try an [id number] proton pump inhibitor. Assessment & Plan (10/05/2020 11:01 AM CDT): The patient is breathing has been under good control with albuterol MDI, Symbicort and Flonase. Assessment & Plan (04/06/2020 9:51 AM TUBING ASSEMBLER): The patient will continue with Symbicort 2 puffs b.i.d. or on his current schedule of 3 times per week. The patient was educated that he may use the Symbicort as ordered if he notices an increase of asthma symptoms. The patient has an albuterol rescue inhaler that he may use p.r.n. and up to 4 times a day as needed for shortness of breath, wheeze, cough, or asthma symptoms. The patient also will continue with Flonase. Assessment & Plan (12/02/2019 9:49 AM CDT): The patient has a cough variant of asthma. He will continue with the Pepcid, Flonase and Symbicort. Cough, persistent 08/03/2019 Overview (06/04/2021): Added automatically from request for surgery [id number] Added automatically from request for surgery [id number] Last Assessment & Plan: The patient's cough has essentially resolved with treatment of his cough variant of asthma with Symbicort, gastroesophageal reflux with Pepcid and Flonase for postnasal drip. I did tell him he could try stopping the Flonase and/or the Pepcid to see if the Symbicort alone would control the cough. Added automatically from request for surgery [id number] Last Assessment & Plan: The patient's cough has essentially resolved with treatment of his cough variant of asthma with Symbicort, gastroesophageal reflux with Pepcid and Flonase for postnasal drip. I did tell him he could try stopping the Flonase and/or the Pepcid to see if the Symbicort alone would control the cough. Assessment & Plan (08/26/2023 3:23 PM CDT): The patient did see the spring tester but he did not reveal a reason for the cough. The patient states he coughs if he does drink milk or eats ice cream or, exerts himself. Assessment & Plan (09/19/2022 9:07 AM CDT): The patient has had a history of cough variant of asthma which responded to therapy but he had a recent upper respiratory tract infection again in mid August which required antibiotics and steroids. He still has a dry cough now. He did see the spring tester and allergy shots versus Dupixent is being considered. He will continue on Protonix 40 mg daily. I will consider bronchoscopy if the allergy shots/Dupixent do not control the cough. Assessment & Plan (02/26/2022 2:52 PM TUBING ASSEMBLER): Patient will continue treating the asthma with Trelegy or Symbicort, continue allergy medications and, continue acid reflux medications Assessment & Plan (08/31/2019 12:05 PM CDT): The patient's cough has essentially resolved with treatment of his cough variant of asthma with Symbicort, gastroesophageal reflux with Pepcid and Flonase for postnasal drip. I did tell him he could try stopping the Flonase and/or the Pepcid to see if the Symbicort alone would control the cough. Assessment & Plan (08/17/2019 11:47 AM CDT): The patient will continue with Flonase and Hui for now. The spring tester skin test is pending. I will check a methacholine challenge since he recently had normal PFTs. Allergies 07/11/2019 Assessment & Plan (08/08/2022 9:59 AM CDT): The patient has not heard from the spring tester. I did send a message to our office staff to follow-up. LEIDA (acute kidney injury) ([facility]) 05/28/2019 Overview (06/04/2021): Last Assessment & Plan: Elevated Cr of 1.35. Hyponatremia to 127 Restart acetazolamide. AM BMP Last Assessment & Plan: Elevated Cr of 1.35. Hyponatremia to 127 Restart acetazolamide. AM BMP Assessment & Plan (05/30/2019 7:45 AM CDT): Elevated Cr of 1.35. Hyponatremia to 127 Restart acetazolamide. AM BMP Neuroendocrine carcinoma of lung (CMS/HCC) 05/10 IIH (idiopathic intracranial hypertension) 04/01 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 03/15/2019 Hypertension, benign 01/15/2017 Hyperlipidemia 02/21/2015 Depression with anxiety 12/12/2014 Insomnia 12/12/2014 Obesity 01/05/2014 Dry skin dermatitis 01/05/2014 Encounter for preventive health examination 03/2011 Overview (06/04/2021): appendectomytonsillectomy appendectomytonsillectomy Resolved Problems Problem Noted Date Diagnosed Date Resolved Date Snoring 08/31/2019 02/01/2021 Assessment & Plan (08/31/2019 12:05 PM CDT): With his snoring and daytime hypersomnia, I have recommended proceeding with a nocturnal polysomnogram with a split night protocol if necessary and no MSLT. Snoring 08/31/2019 02/26/2022 Overview (06/04/2021): Last Assessment & Plan: With his snoring and daytime hypersomnia, I have recommended proceeding with a nocturnal polysomnogram with a split night protocol if necessary and no MSLT. Last Assessment & Plan: With his snoring and daytime hypersomnia, I have recommended proceeding with a nocturnal polysomnogram with a split night protocol if necessary and no MSLT. Immunizations Name Administration Dates Next Due Influenza, Quadrivalent, Spl it, Preservative Free, Intramuscular 12/23/2022,03/28/2020 Influenza, Unspecified 12/09/2021 Pneumococcal Conjugate Pcv20 12/23/2022 Pneumococcal Polysaccharide PPV23 08/31/2019 Tdap 01/28/2019 ZOSTER Recombinant 02/22/2022,07/07/2021 Social History Tobacco Use Types Packs/Day Years Used Date Smoking Tobacco: Never Smokeless Tobacco: Never Tobacco Cessation:Counseling Given: Not Answered Alcohol Use Standard Drinks/Week Comments Yes 2 (1 standard drink = 0.6 oz pur e alcohol) AUDIT-C Answer Date Recorded Q1: How often do you have a drink containing alc ohol? 2-3 times a week 12/24/2020 Q2: How many drinks containi ng alcohol do you have on a typical day when you are drinking? 1 or 2 12/24/2020 Frequency of Binge Drinking Not on file 12/14 Personal Safety Answer Date Recorded Have you ever been in or are you currently in a harmful physical or emotional relationship or is someone making you feel afraid or unsafe? 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 on file Not on file Last Filed Vital Signs Vital Sign Reading Time Taken Comments Blood Pressure 132/77 02/18/2024 9:58 AM TUBING ASSEMBLER Pulse 101 02/18/2024 9:58 AM TUBING ASSEMBLER Temperature 36.4 ??C (97.6 ??F) 02/18/2024 9:58 AM CS T Respiratory Rate 19 02/18/2024 9:58 AM TUBING ASSEMBLER Oxygen Saturation 99% 02/18/2024 9:58 AM TUBING ASSEMBLER Inhaled Oxygen Concentration - - Weight 153 kg (337 lb 6.4 oz) 02/18/2024 9:58 AM TUBING ASSEMBLER Height 190.5 cm (6' 3 ) 02/16/2024 4:53 PM TUBING ASSEMBLER Body Mass Index 42.17 02/16/2024 4:53 PM TUBING ASSEMBLER Plan of Treatment Not on file Procedures Procedure Name Priority Date/Time Associated Diagnosis Comments EGFR STAT 02/25/2024 2:21 PM TUBING ASSEMBLER Neuroendocrine carcinoma of lung (HCC) DIFFERENTIAL AUTO STAT 02/25/2024 2:2 1 PM TUBING ASSEMBLER Neuroendocrine carcinoma of lung (HCC) COMPREHENSIVE METABOLIC PANEL STAT 02/25/2024 2:21 PM TUBING ASSEMBLER Neuroendocrine carcinoma of lung (HCC) CBC WITH AUTO DIFFERENTIAL STAT 02/25/2024 2:21 PM TUBING ASSEMBLER Neuroendocrine carcinoma of lung (HCC) EGFR Routine 02/18/2024 9:52 AM TUBING ASSEMBLER 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) DIFFERENTIAL AUTO Routine 02/18/2024 9:5 2 AM TUBING ASSEMBLER 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) CBC WITH AUTO DIFFERENTIAL Routine 02/18/2024 9:52 AM TUBING ASSEMBLER 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) COMPREHENSIVE METABOLIC PANEL Routine 02/18/2024 9:52 AM TUBING ASSEMBLER 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) CT CHEST ABDOMEN PELVIS W CONTRAST Schedule Routine, Read Routine (OP Routine) 02/16/2024 6:28 PM TUBING ASSEMBLER 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) MRI BRAIN W WO CONTRAST Schedule Routine, Read Routine (OP Routine) 02/16/2024 5:42 PM TUBING ASSEMBLER 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) DIFFERENTIAL AUTO Routine 01/21/2024 8:5 9 AM TUBING ASSEMBLER 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) CBC WITH AUTO DIFFERENTIAL Routine 01/21/2024 8:59 AM TUBING ASSEMBLER 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) EGFR Routine 01/21/2024 8:57 AM TUBING ASSEMBLER 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) COMPREHENSIVE METABOLIC PANEL Routine 01/21/2024 8:57 AM TUBING ASSEMBLER 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) EGFR Routine 12/24/2023 12:27 PM CDT 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) COMPREHENSIVE METABOLIC PANEL Routine 12/24/2023 12:27 PM CDT 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) DIFFERENTIAL AUTO Routine 12/24/2023 12: 23 PM CDT 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) CBC WITH AUTO DIFFERENTIAL Routine 12/24/2023 12:23 PM CDT 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 73 m2 Comment: Interpretive Data Reference Interval Normal ?>/= 90 mL/min/1.73m2 Mildly decreased* ? 60 - 89 mL/min/1.73m2 Mildly to moderately decreased ?45 - 59 mL/min/1.73m2 Moderately to severely decreased ??30 - 44 mL/min/1.73m2 Severely decreased ?15 - 29 mL/min/1.73m2 Kidney Failure ?< 15 ??mL/min/1.73m2 *Relative to young adult level Estimated glomerular filtration rate is determined by the 2020 CKD-EPI equation recommended by the National Kidney [employer] (A Unifying Approach to GFR Estimation: Recommendations of the NKF-ASK Task Force on Reassessing the Inclusion of Race in Diagnosing Kidney Disease, JASN 2020). The CKD-EPI equation should not be used for patients with unstable renal function and has not been validated in children and those over 70. Current interpretive data was last reviewed 2021. Testing performed by: [address] [address] Blood 02/25/2024 2:21 PM TUBING ASSEMBLER 02/25/2024 2:35 PM TUBING ASSEMBLER us Kip Del Rio MD LAB BLOOD ORDERABLES Final Result [facility] [address] [facility] Department [place] [address] * (ABNORMAL) Differential, auto (02/25/2024 2:21 PM TUBING ASSEMBLER) Neutrophil abs 5.1 1.5 - 6.5 K/cumm Comment:Testing performed by : [address] [address] Imm gran abs 0.0 0.0 - 0.1 K/cumm SEJAL Comment:Testing performed by : [address] [address] Lymphocyte abs 1.1 0.8 - 3.3 K/cumm SEJAL Comment:Testing performed by : [address] [address] Monocyte abs 1.0(H) 0.2 - 0.8 K/cumm SEJAL Comment:Testing performed by : [address] [address] Eosinophil abs 0.3 0.0 - 0.5 K/cumm [facility] Comment:Testing performed by : [address] [address] Basophil abs 0.0 0.0 - 0.1 K/cumm [facility] Comment:Testing performed by : [address] [address] Neutrophil pct 67.4 % [facility] Comment: Interpretive Data Percent cell count reference ranges are not reported, since discordance with absolute values may lead to misinterpretation of CBC data. Current Interpretive Data was last revised on 2017. Testing performed by: [address] [address] Imm gran pct 0.4 % [facility] Comment: Interpretive Data Percent cell count reference ranges are not reported, since discordance with absolute values may lead to misinterpretation of CBC data. Current Interpretive Data was last revised on 2017. Testing performed by: [address] [address] Lymphocyte pct 15.0 % [facility] Comment: Interpretive Data Percent cell count reference ranges are not reported, since discordance with absolute values may lead to misinterpretation of CBC data. Current Interpretive Data was last revised on 2017. Testing performed by: [address] [address] Monocyte pct 13.4 % [facility] Comment: Interpretive Data Percent cell count reference ranges are not reported, since discordance with absolute values may lead to misinterpretation of CBC data. Current Interpretive Data was last revised on 2017. Testing performed by: [address] [address] Eosinophil pct 3.5 % [facility] Comment: Interpretive Data Percent cell count reference ranges are not reported, since discordance with absolute values may lead to misinterpretation of CBC data. Current Interpretive Data was last revised on 2017. Testing performed by: [address] [address] Basophil pct 0.3 % [facility] Comment: Interpretive Data Percent cell count reference ranges are not reported, since discordance with absolute values may lead to misinterpretation of CBC data. Current Interpretive Data was last revised on 2017. Testing performed by: [address] [address] Blood 02/25/2024 2:21 PM TUBING ASSEMBLER 02/25/2024 2:35 PM TUBING ASSEMBLER us Kip Del Rio MD LAB BLOOD ORDERABLES Final Result [facility] [address] [facility] Department [place] [address] * (ABNORMAL) CBC with auto differential (02/25/2024 2:21 PM TUBING ASSEMBLER) WBC 7.5 3.8 - 9.9 K/cumm Comment:Testing performed by : [address] [address] Hgb 13.9 13.0 - 17.5 g/dL SEJAL Comment:Testing performed by : [address] [address] Hct 41.3 38.9 - 50.3 % SEJAL Comment:Testing performed by : [address] [address] Plt 144(L) 150 - 400 K/cumm SEJAL Comment:Testing performed by : [address] [address] MPV 11.5 9.1 - 12.3 fL SEJAL Comment:Testing performed by : [address] [address] RBC 4.31 4.30 - 5.80 M/cumm SEJAL Comment:Testing performed by : [address] [address] MCV 95.8 81.3 - 96.4 fL SEJAL Comment:Testing performed by : [address] [address] MCH 32.3 27.1 - 33.3 pg SEJAL Comment:Testing performed by : [address] [address] MCHC 33.7 32.3 - 35.7 g/dL SEJAL PAEZ Comment:Testing performed by : [address] [address] RDW CV 15.1(H) 11.1 - 14.9 % SEJAL PAEZ Comment:Testing performed by : [address] [address] RDW SD 54.1(H) 35.7 - 48.1 fL SEJAL PAEZ Comment:Testing performed by : [address] [address] NRBC abs 0.00 0.00 - 0.01 K/cumm SEJAL PAEZ Comment:Testing performed by : [address] [address] Blood 02/25/2024 2:21 PM TUBING ASSEMBLER 02/25/2024 2:35 PM TUBING ASSEMBLER Kip Del Rio MD LAB BLOOD ORDERABLES Final Result [facility] [address] [facility] Department [place] [address] * (ABNORMAL) Comprehensive metabolic panel (02/25/2024 2:21 PM TUBING ASSEMBLER) Sodium 138 135 - 145 mmol/L Comment:Testing performed by : [address] [address] Potassium, pl 4.1 3.3 - 4.9 mmol/L SEJAL PAEZ Comment:Testing performed by : [address] [address] Chloride 101 97 - 110 mmol/L SEJAL PAEZ Comment:Testing performed by : [address] [address] CO2 28 22 - 32 mmol/L SEJAL PAEZ Comment:Testing performed by : [address] [address] Anion gap 9 2 - 15 mmol/L SEJAL PAEZ Comment:Testing performed by : [address] [address] BUN 14 6 - 25 mg/dL SEJAL PAEZ Comment:Testing performed by : [address] [address] Creatinine 0.70(L) 0.80 - 1.30 mg/dL SEJAL Comment:Testing performed by : [address] [address] Glucose 98 70 - 199 mg/dL SEJAL Comment: Interpretive Data Fasting glucose >/= 126 mg/dl is diagnostic for diabetes. ?? Fasting is defined as no caloric intake for at least 8 hours. Fasting glucose between 100 mg/dl to 125 mg/dl is diagnostic of prediabetes. In a patient with classic symptoms of hyperglycemia or hyperglycemic crisis, a random glucose >/= 200 mg/dl is diagnostic for diabetes. In the absence of unequivocal hyperglycemia, results should be confirmed by repeat testing. The classification and Diagnosis of Diabetes Diabetes Care 202; 46: S19-S40. Current interpretive data was last revised 2022. Testing performed by: [address] [address] Calcium 9.9 8.5 - 10.3 mg/dL SEJAL Comment:Testing performed by : [address] [address] Bilirubin, total 0.3 0.1 - 1.2 mg/dL SEJAL Comment:Testing performed by : [address] [address] Protein, pl 7.6 6.5 - 8.5 g/dL SEJAL Comment:Testing performed by : [address] [address] Albumin 4.4 3.5 - 5.0 g/dL SEJAL Comment:Testing performed by : [address] [address] Alk phos 94 40 - 130 Units/L SEJAL Comment:Testing performed by : [address] [address] ALT 18 7 - 55 Units/L SEJAL Comment:Testing performed by : [address], [address] AST 21 10 - 50 Units/L SEJAL Comment:Testing performed by : [place] [address], [place]., [address] Blood 02/25/2024 2:21 PM TUBING ASSEMBLER 02/25/2024 2:35 PM TUBING ASSEMBLER us Kip Del Rio MD LAB BLOOD ORDERABLES Final Result [facility] [address] [facility] Department [place] [address] * eGFR (02/18/2024 9:52 AM TUBING ASSEMBLER) eGFR >90 >=60 mL/min/1. 73 m2 Comment: Interpretive Data Reference Interval Normal ?>/= 90 mL/min/1.73m2 Mildly decreased* ? 60 - 89 mL/min/1.73m2 Mildly to moderately decreased ?45 - 59 mL/min/1.73m2 Moderately to severely decreased ??30 - 44 mL/min/1.73m2 Severely decreased ?15 - 29 mL/min/1.73m2 Kidney Failure ?< 15 ??mL/min/1.73m2 *Relative to young adult level Estimated glomerular filtration rate is determined by the 2020 CKD-EPI equation recommended by the National Kidney Foundation (A Unifying Approach to GFR Estimation: Recommendations of the NKF-ASK Task Force on Reassessing the Inclusion of Race in Diagnosing Kidney Disease, JASN 2020). The CKD-EPI equation should not be used for patients with unstable renal function and has not been validated in children and those over 70. Current interpretive data was last reviewed 2021. Blood 02/18/2024 9:52 AM TUBING ASSEMBLER 02/18/2024 9:57 AM TUBING ASSEMBLER us Kip Del Rio MD LAB BLOOD ORDERABLES Final Result [facility] Department [place] [address] * (ABNORMAL) Differential, auto (02/18/2024 9:52 AM TUBING ASSEMBLER) Neutrophil abs 9.7(H) 1.5 - 6.5 K/cumm Comment:Testing performed by : [facility], [address] [place] [phone] Lymphocyte abs 0.6(L) 0.8 - 3.3 K/cumm CERNER BJ Comment:Testing performed by : [facility], [address] [place] [phone] Monocyte abs 1.2(H) 0.2 - 0.8 K/cumm CERNER BJ Comment:Testing performed by : [facility], [address] [place] [phone] Eosinophil abs 0.3 0.0 - 0.5 K/cumm CERNER BJ Comment:Testing performed by : [facility], [address] [place] [phone] Basophil abs 0.1 0.0 - 0.1 K/cumm CERNER BJ Comment:Testing performed by : [facility], [address] [place] [phone] Neutrophil pct 81.9 % CERNER BJ Comment: Interpretive Data Percent cell count reference ranges are not reported, since discordance with absolute values may lead to misinterpretation of CBC data. Current Interpretive Data was last revised on 2017. Testing performed by: [facility], [address] [place] [phone] Lymphocyte pct 5.0 % CERNER BJ Comment: Interpretive Data Percent cell count reference ranges are not reported, since discordance with absolute values may lead to misinterpretation of CBC data. Current Interpretive Data was last revised on 2017. Testing performed by: [facility], [address] [place] [phone] Monocyte pct 10.3 % CERNER BJRicardo Comment: Interpretive Data Percent cell count reference ranges are not reported, since discordance with absolute values may lead to misinterpretation of CBC data. Current Interpretive Data was last revised on 2017. Testing performed by: [facility], [address] [place] [address] Eosinophil pct 2.3 % SEJAL ARNOLD Comment: Interpretive Data Percent cell count reference ranges are not reported, since discordance with absolute values may lead to misinterpretation of CBC data. Current Interpretive Data was last revised on 2017. Testing performed by: [facility], [address] [place] [address] Basophil pct 0.5 % SEJAL ANROLD Comment: Interpretive Data Percent cell count reference ranges are not reported, since discordance with absolute values may lead to misinterpretation of CBC data. Current Interpretive Data was last revised on 2017. Testing performed by: [facility], [address] [place] [address] Blood 02/18/2024 9:52 AM TUBING ASSEMBLER 02/18/2024 9:54 AM TUBING ASSEMBLER us Kip Del Rio MD LAB BLOOD ORDERABLES Final Result SE[facility] AR[facility] Department [place] [address] * (ABNORMAL) CBC with auto differential (02/18/2024 9:52 AM TUBING ASSEMBLER) WBC 11.8(H) 3.8 - 9.9 K/cumm Comment:Testing performed by : [facility], [address] [place] [address] Hgb 14.1 13.0 - 17.5 g/dL SEJAL ARNOLD Comment:Testing performed by : [facility], [address] [place] [address] Hct 42.4 38.9 - 50.3 % SEJAL ARNOLD Comment:Testing performed by : [facility], [address] [place] [address] Plt 213 150 - 400 K/cumm CERRAFAELA HEARN Comment:Testing performed by : [facility], [address] [place] [address] MPV 9.6 6.8 - 10.4 fL SEJAL HEARN Comment:Testing performed by : [facility], [address] [place] [address] RBC 4.39 4.30 - 5.80 M/cumm SEJAL HEARN Comment:Testing performed by : [facility], [address] [place] [address] MCV 96.4 81.3 - 96.4 fL SEJAL HEARN Comment:Testing performed by : [facility], [address] [place] [address] MCH 32.0 27.1 - 33.3 pg SEJAL HEARN Comment:Testing performed by : [facility], [address] [place] [address] MCHC 33.2 32.3 - 35.7 g/dL SEJAL HEARN Comment:Testing performed by : [facility], [address] [place] [address] RDW CV 16.8(H) 11.1 - 14.9 % SEJAL HEARN Comment:Testing performed by : [facility], [address] [place] [address] NRBC abs 0.00 0.00 - 0.01 K/cumm [facility] Comment:Testing performed by : [facility], [address] [place] [address] Blood 02/18/2024 9:52 AM TUBING ASSEMBLER 02/18/2024 9:54 AM TUBING ASSEMBLER us Kip Del Rio MD LAB BLOOD ORDERABLES Final Result [facility] HE[facility] Department [place] [address] * Comprehensive metabolic panel (02/18/2024 9:52 AM TUBING ASSEMBLER) Sodium 144 135 - 145 mmol/L Potassium, pl 4.7 3.3 - 4.9 mmol/L [facility] Chloride 107 97 - 110 mmol/L [facility] CO2 32 22 - 32 mmol/L [facility] Anion gap 5 2 - 15 mmol/L [facility] BUN 15 6 - 25 mg/dL [facility] Creatinine 0.81 0.80 - 1.30 mg/dL [facility] Glucose 110 70 - 199 mg/dL [facility] Comment: Interpretive Data Fasting glucose >/= 126 mg/dl is diagnostic for diabetes. ?? Fasting is defined as no caloric intake for at least 8 hours. Fasting glucose between 100 mg/dl to 125 mg/dl is diagnostic of prediabetes. In a patient with classic symptoms of hyperglycemia or hyperglycemic crisis, a random glucose >/= 200 mg/dl is diagnostic for diabetes. In the absence of unequivocal hyperglycemia, results should be confirmed by repeat testing. The classification and Diagnosis of Diabetes Diabetes Care 202; 46: S19-S40. Current interpretive data was last revised 2022. Calcium 9.8 8.5 - 10.3 mg/dL [facility] Bilirubin, total 0.2 0.1 - 1.2 mg/dL [facility] Protein, pl 8.0 6.5 - 8.5 g/dL [facility] Albumin 4.5 3.5 - 5.0 g/dL [facility] Alk phos 112 40 - 130 Units/L [facility] ALT 22 7 - 55 Units/L [facility] AST 25 10 - 50 Units/L [facility] Blood 02/18/2024 9:52 AM TUBING ASSEMBLER 02/18/2024 9:57 AM TUBING ASSEMBLER us Kip Del Rio MD LAB BLOOD ORDERABLES Final Result [facility] [place] [address] * CT Chest Abdomen Pelvis W Contrast (02/16/2024 6:28 PM TUBING ASSEMBLER) Anatomical Region Laterality Modality Body N/A Computed Tomogra phy 02/17/2024 9:44 AM TUBING ASSEMBLER Impressions 02/17/2024 12:53 PM TUBING ASSEMBLER 1. ??No significant change in posttreatment changes within the right lung, pulmonary nodules, or omental nodule when compared to CT 12/22/2023. 2. ??Likely due to phase of contrast on today's examination, the hepatic lesions are less conspicuous. ??Within these limitations, the hepatic lesions are also unchanged in size compared to CT 12/22/2023. Dictated by: Bryce Whitfield MD The radiology attending physician has personally reviewed this study, and had reviewed and/or edited this written report and agrees with it. Electronically signed by: Vikki Wya M.D. 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 COMPARISON: Multiple prior CTs, most recently 12/22/2023 FINDINGS: ?? Chest: Imaged thyroid is unremarkable. ??No supraclavicular or axillary lymphadenopathy. Multiple subcentimeter mediastinal lymph nodes are unchanged in size. For example, one right paratracheal lymph node seen on series 2, image 33, measures 9 mm in short axis, measured [address] 12/22/2023. ??Large right hilar lymph node without significant change in size, measures 21 mm on series 2, image 63, previously measured [address] Heart size is normal. ??Trace pericardial fluid without pericardial effusion. ??The thoracic aorta and main pulmonary artery normal in caliber. ??There is moderate atherosclerotic calcifications of the thoracic aorta and coronary arteries. Postsurgical changes of right lower lobectomy and associated right hemithorax volume loss. ??Stable right pleural thickening and trace right pleural effusion. ?Unchanged appearance of right apical consolidation/tethering along the mediastinum. ??Stable soft tissue thickening near the mediastinum in the medial right upper thorax. These are all likely posttreatment changes. No significant change in 4 mm right middle lobe nodules, best seen on series 3, images 71 and 76. ??Stable tiny left-sided pulmonary nodules. ??No new or enlarging suspicious pulmonary nodule. No left pleural effusion. ??No pneumothorax. Mildly patulous thoracic esophagus. Abdomen/Pelvis: Due to phase of contrast, the hepatic lesions are less conspicuous compared to prior CT, within these limitations, the lesions appear similar. ??For reference, one in hepatic segment 8 lesion measures 24 mm on series 2, image 133, unchanged from CT 12/22/2023. ??No new suspicious hepatic lesion. The gallbladder, spleen, pancreas, adrenal glands, and kidneys are unremarkable. The stomach, small bowel, and large bowel are normal in caliber. There is diverticulosis without diverticulitis. ??Appendectomy. ??No intraperitoneal free air or free fluid. Stable 6 mm omental nodule, 3 cm inferior to the gallbladder fundus, best seen on series 2, image 187, stable dating back to at least CT 06/23/2023. There is retained contrast within the bladder, likely due to patient's same day contrast-enhanced MRI. ??Prostate present. Stable subcentimeter lymph nodes in bilateral inguinal regions. ??No suspicious abdominal or pelvic lymphadenopathy. ??Abdominal aorta is normal in caliber. ??There is mild atherosclerotic calcification of the abdominal aorta and iliac vessels. Bones: Chronic appearing right posterior rib deformities, likely post surgical. ??Moderate degenerative changes of the thoracolumbar spine. No suspicious blastic or lytic osseous lesions. 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 COMPARISON: Multiple prior CTs, most recently 12/22/2023 FINDINGS: Chest: Imaged thyroid is unremarkable. No supraclavicular or axillary lymphadenopathy. Multiple subcentimeter mediastinal lymph nodes are unchanged in size. For example, one right paratracheal lymph node seen on series 2, image 33, measures 9 mm in short axis, measured [address] 12/22/2023. Large right hilar lymph node without significant change in size, measures 21 mm on series 2, image 63, previously measured [address] Heart size is normal. Trace pericardial fluid without pericardial effusion. The thoracic aorta and main pulmonary artery normal in caliber. There is moderate atherosclerotic calcifications of the thoracic aorta and coronary arteries. Postsurgical changes of right lower lobectomy and associated right hemithorax volume loss. Stable right pleural thickening and trace right pleural effusion. Unchanged appearance of right apical consolidation/tethering along the mediastinum. Stable soft tissue thickening near the mediastinum in the medial right upper thorax. These are all likely posttreatment changes. No significant change in 4 mm right middle lobe nodules, best seen on series 3, images 71 and 76. Stable tiny left-sided pulmonary nodules. No new or enlarging suspicious pulmonary nodule. No left pleural effusion. No pneumothorax. Mildly patulous thoracic esophagus. Abdomen/Pelvis: Due to phase of contrast, the hepatic lesions are less conspicuous compared to prior CT, within these limitations, the lesions appear similar. For reference, one in hepatic segment 8 lesion measures 24 mm on series 2, image 133, unchanged from CT 12/22/2023. No new suspicious hepatic lesion. The gallbladder, spleen, pancreas, adrenal glands, and kidneys are unremarkable. The stomach, small bowel, and large bowel are normal in caliber. There is diverticulosis without diverticulitis. Appendectomy. No intraperitoneal free air or free fluid. Stable 6 mm omental nodule, 3 cm inferior to the gallbladder fundus, best seen on series 2, image 187, stable dating back to at least CT 06/23/2023. There is retained contrast within the bladder, likely due to patient's same day contrast-enhanced MRI. Prostate present. Stable subcentimeter lymph nodes in bilateral inguinal regions. No suspicious abdominal or pelvic lymphadenopathy. Abdominal aorta is normal in caliber. There is mild atherosclerotic calcification of the abdominal aorta and iliac vessels. Bones: Chronic appearing right posterior rib deformities, likely post surgical. Moderate degenerative changes of the thoracolumbar spine. No suspicious blastic or lytic osseous lesions. IMPRESSION: 1. No significant change in posttreatment changes within the right lung, pulmonary nodules, or omental nodule when compared to CT 12/22/2023. 2. Likely due to phase of contrast on today's examination, the hepatic lesions are less conspicuous. Within these limitations, the hepatic lesions are also unchanged in size compared to CT 12/22/2023. Dictated by: Bryce Whitfield MD The radiology attending physician has personally reviewed this study, and had reviewed and/or edited this written report and agrees with it. Electronically signed by: Vikki Way M.D. Kip Del Rio MD IM CT PROCEDURES Final Re sult * MRI Brain W WO Contrast (02/16/2024 5:42 PM TUBING ASSEMBLER) Anatomical Region Laterality Modality Head and Neck N/A Magnetic Resonan ce 02/17/2024 8:38 AM TUBING ASSEMBLER Impressions 02/17/2024 4:37 PM TUBING ASSEMBLER No evidence of intracranial metastatic disease. Dictated by: Shannon Turner MD The radiology attending physician has personally reviewed this study, and had reviewed and/or edited this written report and agrees with it. Electronically signed by: Gabbi Zimmer MD Narrative 02/17/2024 4:37 PM TUBING ASSEMBLER EXAMINATION: Magnetic resonance imaging (MRI) of the brain and brainstem without and with contrast HISTORY: High-grade neuroendocrine carcinoma. ??Evaluate for metastatic disease TECHNIQUE: Multiplanar multi-weighted MRI of the brain and brainstem was performed without and with intravenous contrast using the general brain protocol. Contrast information: 20 mL Gadoterate Meglumine COMPARISON: 05/20/2019 FINDINGS: Redemonstrated diffusely decreased osseous marrow signal within the calvarium and in the cervical spine which is nonspecific. Mild asymmetry of the right cavernous sinus without obvious mass likely secondary to tortuosity of the internal carotid artery. The superior sagittal sinus demonstrates normal venous flow. The corpus callosum is normal in shape and signal intensity. The posterior fossa is unremarkable. The pituitary and sella are normal. The brainstem and craniocervical junction are unremarkable. Diffusion weighted images reveal no hyperintensities to suggest acute cerebral infarction. The susceptibility weighted sequences reveal no evidence of acute or chronic hemorrhage. The ventricles are normal in size and position without evidence of hydrocephalus. Mild mucosal thickening in the maxillary sinuses. The visualized portions of the mastoids are unremarkable. The orbits appear normal. Normal flow voids are demonstrated in the carotid arteries and basilar artery. There is no abnormal contrast enhancement. Procedure Note Gabbi Zimmer MD PhD - 02/17/2024 EXAMINATION: Magnetic resonance imaging (MRI) of the brain and brainstem without and with contrast HISTORY: High-grade neuroendocrine carcinoma. Evaluate for metastatic disease TECHNIQUE: Multiplanar multi-weighted MRI of the brain and brainstem was performed without and with intravenous contrast using the general brain protocol. Contrast information: 20 mL Gadoterate Meglumine COMPARISON: 05/20/2019 FINDINGS: Redemonstrated diffusely decreased osseous marrow signal within the calvarium and in the cervical spine which is nonspecific. Mild asymmetry of the right cavernous sinus without obvious mass likely secondary to tortuosity of the internal carotid artery. The superior sagittal sinus demonstrates normal venous flow. The corpus callosum is normal in shape and signal intensity. The posterior fossa is unremarkable. The pituitary and sella are normal. The brainstem and craniocervical junction are unremarkable. Diffusion weighted images reveal no hyperintensities to suggest acute cerebral infarction. The susceptibility weighted sequences reveal no evidence of acute or chronic hemorrhage. The ventricles are normal in size and position without evidence of hydrocephalus. Mild mucosal thickening in the maxillary sinuses. The visualized portions of the mastoids are unremarkable. The orbits appear normal. Normal flow voids are demonstrated in the carotid arteries and basilar artery. There is no abnormal contrast enhancement. IMPRESSION: No evidence of intracranial metastatic disease. Dictated by: Shannon Turner MD The radiology attending physician has personally reviewed this study, and had reviewed and/or edited this written report and agrees with it. Electronically signed by: Gabbi Zimmer MD Kip Del Rio MD IM MRI PROCEDURES Final R esult * (ABNORMAL) Differential, auto (01/21/2024 8:59 AM TUBING ASSEMBLER) Neutrophil abs 6.3 1.5 - 6.5 K/cumm Comment:Testing performed by : [facility], [address] [place] [address], [place] [phone] Lymphocyte abs 1.0 0.8 - 3.3 K/cumm [facility] Comment:Testing performed by : [facility], [address] [place] [phone] Monocyte abs 1.2(H) 0.2 - 0.8 K/cumm [facility] Comment:Testing performed by : [facility], [address] [place] [phone] Eosinophil abs 0.1 0.0 - 0.5 K/cumm [facility] Comment:Testing performed by : [facility], [address] [place] [phone] Basophil abs 0.1 0.0 - 0.1 K/cumm [facility] Comment:Testing performed by : [facility], [address] [place] [phone] Neutrophil pct 72.4 % [facility] Comment: Interpretive Data Percent cell count reference ranges are not reported, since discordance with absolute values may lead to misinterpretation of CBC data. Current Interpretive Data was last revised on 2017. Testing performed by: [facility], [address] [place] [phone] Lymphocyte pct 11.6 % [facility] Comment: Interpretive Data Percent cell count reference ranges are not reported, since discordance with absolute values may lead to misinterpretation of CBC data. Current Interpretive Data was last revised on 2017. Testing performed by: [facility], [address] [place] [phone] Monocyte pct 13.6 % [facility] Comment: Interpretive Data Percent cell count reference ranges are not reported, since discordance with absolute values may lead to misinterpretation of CBC data. Current Interpretive Data was last revised on 2017. Testing performed by: [facility], [address] [place] [phone] Eosinophil pct 1.7 % [facility] Comment: Interpretive Data Percent cell count reference ranges are not reported, since discordance with absolute values may lead to misinterpretation of CBC data. Current Interpretive Data was last revised on 2017. Testing performed by: [facility], [address] [place] [phone] Basophil pct 0.7 % [facility] Comment: Interpretive Data Percent cell count reference ranges are not reported, since discordance with absolute values may lead to misinterpretation of CBC data. Current Interpretive Data was last revised on 2017. Testing performed by: [facility], [address] [place] [address] Blood 01/21/2024 8:59 AM TUBING ASSEMBLER 01/21/2024 9:01 AM TUBING ASSEMBLER Kip Del Rio MD LAB BLOOD ORDERABLES Final Result [facility] Department [place] [address] * (ABNORMAL) CBC with auto differential (01/21/2024 8:59 AM TUBING ASSEMBLER) WBC 8.6 3.8 - 9.9 K/cumm Comment:Testing performed by : [facility], [address] [place] [address] Hgb 14.7 13.0 - 17.5 g/dL [facility] Comment:Testing performed by : [facility], [address] [place] [address] Hct 43.9 38.9 - 50.3 % [facility] Comment:Testing performed by : [facility], [address] [place] [address] Plt 210 150 - 400 K/cumm [facility] Comment:Testing performed by : [facility], [address] [place] [address] MPV 9.7 6.8 - 10.4 fL [facility] Comment:Testing performed by : [facility], [address] [place] [address] RBC 4.66 4.30 - 5.80 M/cumm [facility] Comment:Testing performed by : [facility], [address] [place] [address] MCV 94.3 81.3 - 96.4 fL [facility] Comment:Testing performed by : [facility], [address] [place], [place] [phone] MCH 31.6 27.1 - 33.3 pg [facility] Comment:Testing performed by : [facility], [address] [place], [place] [phone] MCHC 33.6 32.3 - 35.7 g/dL [facility] Comment:Testing performed by : [facility], [address] [place], [place] [phone] RDW CV 17.7(H) 11.1 - 14.9 % [facility] Comment:Testing performed by : [facility], [address] [place], [place] [phone] NRBC abs 0.00 0.00 - 0.01 K/cumm [facility] Comment:Testing performed by : [facility], [address] [place], [place] [phone] Blood 01/21/2024 8:59 AM TUBING ASSEMBLER 01/21/2024 9:01 AM TUBING ASSEMBLER us Kip Del Rio MD LAB BLOOD ORDERABLES Final Result [facility] Department [place] [address] * eGFR (01/21/2024 8:57 AM TUBING ASSEMBLER) eGFR >90 >=60 mL/min/1. 73 m2 Comment: Interpretive Data Reference Interval Normal ?>/= 90 mL/min/1.73m2 Mildly decreased* ? 60 - 89 mL/min/1.73m2 Mildly to moderately decreased ?45 - 59 mL/min/1.73m2 Moderately to severely decreased ??30 - 44 mL/min/1.73m2 Severely decreased ?15 - 29 mL/min/1.73m2 Kidney Failure ?< 15 ??mL/min/1.73m2 *Relative to young adult level Estimated glomerular filtration rate is determined by the 2020 CKD-EPI equation recommended by the National Kidney Foundation (A Unifying Approach to GFR Estimation: Recommendations of the NKF-ASK Task Force on Reassessing the Inclusion of Race in Diagnosing Kidney Disease, JASN 2020). The CKD-EPI equation should not be used for patients with unstable renal function and has not been validated in children and those over 70. Current interpretive data was last reviewed 2021. Blood 01/21/2024 8:57 AM TUBING ASSEMBLER 01/21/2024 9:05 AM TUBING ASSEMBLER us Kip Del Rio MD LAB BLOOD ORDERABLES Final Result [facility] Department [place] [address] * (ABNORMAL) Comprehensive metabolic panel (01/21/2024 8:57 AM TUBING ASSEMBLER) Sodium 140 135 - 145 mmol/L Potassium, pl 4.7 3.3 - 4.9 mmol/L [facility] Chloride 101 97 - 110 mmol/L [facility] CO2 32 22 - 32 mmol/L [facility] Anion gap 7 2 - 15 mmol/L [facility] BUN 17 6 - 25 mg/dL [facility] Creatinine 0.73(L) 0.80 - 1.30 mg/dL [facility] Glucose 103 70 - 199 mg/dL [facility] Comment: Interpretive Data Fasting glucose >/= 126 mg/dl is diagnostic for diabetes. ?? Fasting is defined as no caloric intake for at least 8 hours. Fasting glucose between 100 mg/dl to 125 mg/dl is diagnostic of prediabetes. In a patient with classic symptoms of hyperglycemia or hyperglycemic crisis, a random glucose >/= 200 mg/dl is diagnostic for diabetes. In the absence of unequivocal hyperglycemia, results should be confirmed by repeat testing. The classification and Diagnosis of Diabetes Diabetes Care 202; 46: S19-S40. Current interpretive data was last revised 2022. Calcium 10.5(H) 8.5 - 10.3 mg/dL [facility] Bilirubin, total 0.4 0.1 - 1.2 mg/dL [facility] Protein, pl 8.5 6.5 - 8.5 g/dL [facility] Albumin 4.6 3.5 - 5.0 g/dL [facility] Alk phos 93 40 - 130 Units/L [facility] ALT 21 7 - 55 Units/L [facility] AST 23 10 - 50 Units/L [facility] Blood 01/21/2024 8:57 AM TUBING ASSEMBLER 01/21/2024 9:05 AM TUBING ASSEMBLER us Kip Del Rio MD LAB BLOOD ORDERABLES Final Result [facility] Department [place] [address] * eGFR (12/24/2023 12:27 PM CDT) eGFR >90 >=60 mL/min/1. 73 m2 Comment: Interpretive Data Reference Interval Normal ?>/= 90 mL/min/1.73m2 Mildly decreased* ? 60 - 89 mL/min/1.73m2 Mildly to moderately decreased ?45 - 59 mL/min/1.73m2 Moderately to severely decreased ??30 - 44 mL/min/1.73m2 Severely decreased ?15 - 29 mL/min/1.73m2 Kidney Failure ?< 15 ??mL/min/1.73m2 *Relative to young adult level Estimated glomerular filtration rate is determined by the 2020 CKD-EPI equation recommended by the National Kidney Foundation (A Unifying Approach to GFR Estimation: Recommendations of the NKF-ASK Task Force on Reassessing the Inclusion of Race in Diagnosing Kidney Disease, JASN 2020). The CKD-EPI equation should not be used for patients with unstable renal function and has not been validated in children and those over 70. Current interpretive data was last reviewed 2021. Blood 12/24/2023 12:2 7 PM CDT 12/24/2023 12:36 PM CDT us Kip Del Rio MD LAB BLOOD ORDERABLES Final Result [facility] Department [place] [address] * Comprehensive metabolic panel (12/24/2023 12:27 PM CDT) Sodium 140 135 - 145 mmol/L Potassium, pl 4.2 3.3 - 4.9 mmol/L [facility] Chloride 102 97 - 110 mmol/L [facility] CO2 32 22 - 32 mmol/L [facility] Anion gap 6 2 - 15 mmol/L [facility] BUN 16 6 - 25 mg/dL [facility] Creatinine 0.87 0.80 - 1.30 mg/dL [facility] Glucose 98 70 - 199 mg/dL [facility] Comment: Interpretive Data Fasting glucose >/= 126 mg/dl is diagnostic for diabetes. ?? Fasting is defined as no caloric intake for at least 8 hours. Fasting glucose between 100 mg/dl to 125 mg/dl is diagnostic of prediabetes. In a patient with classic symptoms of hyperglycemia or hyperglycemic crisis, a random glucose >/= 200 mg/dl is diagnostic for diabetes. In the absence of unequivocal hyperglycemia, results should be confirmed by repeat testing. The classification and Diagnosis of Diabetes Diabetes Care 202; 46: S19-S40. Current interpretive data was last revised 2022. Calcium 10.1 8.5 - 10.3 mg/dL [facility] Bilirubin, total 0.4 0.1 - 1.2 mg/dL [facility] Protein, pl 7.8 6.5 - 8.5 g/dL [facility] Albumin 4.4 3.5 - 5.0 g/dL [facility] Alk phos 83 40 - 130 Units/L [facility] ALT 15 7 - 55 Units/L [facility] AST 21 10 - 50 Units/L [facility] Blood 12/24/2023 12:2 7 PM CDT 12/24/2023 12:34 PM CDT Kip Del Rio MD LAB BLOOD ORDERABLES Final Result [facility] Department [place] [address] * (ABNORMAL) Differential, auto (12/24/2023 12:23 PM CDT) Neutrophil abs 5.0 1.5 - 6.5 K/cumm Comment:Testing performed by : [facility], [address] [place] [phone] Lymphocyte abs 1.4 0.8 - 3.3 K/cumm [facility] Comment:Testing performed by : [facility], [address] [place] [phone] Monocyte abs 1.1(H) 0.2 - 0.8 K/cumm [facility] Comment:Testing performed by : [facility], [address] [place] [phone] Eosinophil abs 0.2 0.0 - 0.5 K/cumm [facility] Comment:Testing performed by : [facility], [address] [place] [phone] Basophil abs 0.1 0.0 - 0.1 K/cumm [facility] Comment:Testing performed by : [facility], [address] [place] [phone] Neutrophil pct 63.8 % [facility] Comment: Interpretive Data Percent cell count reference ranges are not reported, since discordance with absolute values may lead to misinterpretation of CBC data. Current Interpretive Data was last revised on 2017. Testing performed by: [facility], [address] [place] [phone] Lymphocyte pct 18.3 % [facility] Comment: Interpretive Data Percent cell count reference ranges are not reported, since discordance with absolute values may lead to misinterpretation of CBC data. Current Interpretive Data was last revised on 2017. Testing performed by: [facility], [address] [place] [phone] Monocyte pct 14.3 % [facility] Comment: Interpretive Data Percent cell count reference ranges are not reported, since discordance with absolute values may lead to misinterpretation of CBC data. Current Interpretive Data was last revised on 2017. Testing performed by: [facility], [address] [place] [phone] Eosinophil pct 2.7 % [facility] Comment: Interpretive Data Percent cell count reference ranges are not reported, since discordance with absolute values may lead to misinterpretation of CBC data. Current Interpretive Data was last revised on 2017. Testing performed by: [facility], [address] [place] [phone] Basophil pct 0.9 % [facility] Comment: Interpretive Data Percent cell count reference ranges are not reported, since discordance with absolute values may lead to misinterpretation of CBC data. Current Interpretive Data was last revised on 2017. Testing performed by: [facility], [address] [place] [phone] Blood 12/24/2023 12:2 3 PM CDT 12/24/2023 12:31 PM CDT us Kip Del Rio MD LAB BLOOD ORDERABLES Final Result [facility] Department [place] [address] * (ABNORMAL) CBC with auto differential (12/24/2023 12:23 PM CDT) WBC 7.8 3.8 - 9.9 K/cumm Comment:Testing performed by : [facility], [address] [place] [address] Hgb 14.0 13.0 - 17.5 g/dL [facility] Comment:Testing performed by : [facility], [address] [place] [address] Hct 42.5 38.9 - 50.3 % [facility] Comment:Testing performed by : [facility], [address] [place], [place] [phone] Plt 198 150 - 400 K/cumm [facility] Comment:Testing performed by : [facility], [address] [place] [address] MPV 9.7 6.8 - 10.4 fL [facility] Comment:Testing performed by : [facility], [address] [place], [place] [phone] RBC 4.57 4.30 - 5.80 M/cumm [facility] Comment:Testing performed by : [facility], [address] [place] [address] MCV 93.1 81.3 - 96.4 fL [facility] Comment:Testing performed by : [facility], [address] [place] [address] MCH 30.7 27.1 - 33.3 pg [facility] Comment:Testing performed by : [facility], [address] [place] [address] MCHC 33.0 32.3 - 35.7 g/dL [facility] Comment:Testing performed by : [facility], [address] [place] [address] RDW CV 17.3(H) 11.1 - 14.9 % [facility] Comment:Testing performed by : [facility], [address] [place] [address] NRBC abs 0.00 0.00 - 0.01 K/cumm [facility] Comment:Testing performed by : [facility], [address] [place] [address] Blood 12/24/2023 12:2 3 PM CDT 12/24/2023 12:31 PM CDT us Kip Del Rio MD LAB BLOOD ORDERABLES Final Result [facility] [place] [address] * CT Chest Abdomen Pelvis W Contrast (12/22/2023 11:37 AM CDT) Anatomical Region Laterality Modality Body N/A Computed Tomogra phy 12/22/2023 12:2 8 PM CDT Impressions 12/22/2023 12:28 PM CDT 1. ??Stable right lung posttreatment changes, right hilar and mediastinal lymph nodes, and subcentimeter right middle lobe nodules. No findings of disease progression in the chest. 2. ??Interval decrease in size and number of hypoattenuating liver lesions. ??No new sites of abdominal metastatic disease. Electronically signed by: Taj Lemus M.D. Narrative 12/22/2023 12:28 PM CDT EXAMINATION: ??Computed tomography of the chest, abdomen and pelvis with intravenous contrast HISTORY: History of lung cancer. ??Assess treatment response. TECHNIQUE: ??Transaxial computed tomographic images of the chest, abdomen and pelvis were obtained with intravenous contrast according to the standard protocol after the uneventful administration of 119 mL Opti-Ray 350 intravenous contrast. COMPARISON: 09/23/2023 FINDINGS: ?? Chest: Surgical changes of right lower lobectomy again seen. ??Stable right upper lobe apical paramediastinal consolidation which may be sequelae of prior radiation therapy. ??No change in size of a 4 mm nodule (series 3 image 89) and 5 mm nodule (series 3 image 83) in the right middle lobe. ??No new nodule. Unchanged dependent atelectasis in the right lung base. ??An enlarged right hilar lymph node measuring 2.0 cm short axis is unchanged. ??The cuff of soft tissue tissue anteriorly around the theresa is unchanged. No other enlarged or enlarging lymph nodes. ??Coronary artery calcifications. ??Normal caliber pulmonary arteries and aorta. Abdomen/Pelvis: Several enhancing lesions are again seen in the liver. ??A subcapsular segment 8 lesion has decreased in size now measuring 2.4 cm, previously 3.0 cm. ??Several previously seen lesions in segments 5 and 6 are no longer identified. ??A segment 4A lesion now measuring 0.9 cm (series 2 image 135) previously measured 1.2 cm. ??Other lesions are smaller or no longer identified. Normal gallbladder, pancreas, kidneys, and adrenal glands. ??Unchanged splenomegaly measuring approximately 15 cm in the coronal plane. Normal caliber aorta and iliac arteries. ??No enlarged lymph nodes. Normal urinary bladder. ??Diverticulosis of the descending and sigmoid colon. ??Prior appendectomy. ??Gastrointestinal tract otherwise unremarkable. No osseous metastases. Procedure Note Taj Lemus MD - 12/22/2023 EXAMINATION: Computed tomography of the chest, abdomen and pelvis with intravenous contrast HISTORY: History of lung cancer. Assess treatment response. TECHNIQUE: Transaxial computed tomographic images of the chest, abdomen and pelvis were obtained with intravenous contrast according to the standard protocol after the uneventful administration of 119 mL Opti-Ray 350 intravenous contrast. COMPARISON: 09/23/2023 FINDINGS: Chest: Surgical changes of right lower lobectomy again seen. Stable right upper lobe apical paramediastinal consolidation which may be sequelae of prior radiation therapy. No change in size of a 4 mm nodule (series 3 image 89) and 5 mm nodule (series 3 image 83) in the right middle lobe. No new nodule. Unchanged dependent atelectasis in the right lung base. An enlarged right hilar lymph node measuring 2.0 cm short axis is unchanged. The cuff of soft tissue tissue anteriorly around the theresa is unchanged. No other enlarged or enlarging lymph nodes. Coronary artery calcifications. Normal caliber pulmonary arteries and aorta. Abdomen/Pelvis: Several enhancing lesions are again seen in the liver. A subcapsular segment 8 lesion has decreased in size now measuring 2.4 cm, previously 3.0 cm. Several previously seen lesions in segments 5 and 6 are no longer identified. A segment 4A lesion now measuring 0.9 cm (series 2 image 135) previously measured 1.2 cm. Other lesions are smaller or no longer identified. Normal gallbladder, pancreas, kidneys, and adrenal glands. Unchanged splenomegaly measuring approximately 15 cm in the coronal plane. Normal caliber aorta and iliac arteries. No enlarged lymph nodes. Normal urinary bladder. Diverticulosis of the descending and sigmoid colon. Prior appendectomy. Gastrointestinal tract otherwise unremarkable. No osseous metastases. IMPRESSION: 1. Stable right lung posttreatment changes, right hilar and mediastinal lymph nodes, and subcentimeter right middle lobe nodules. No findings of disease progression in the chest. 2. Interval decrease in size and number of hypoattenuating liver lesions. No new sites of abdominal metastatic disease. Electronically signed by: Taj Lemus M.D. Kip Del Rio MD IMG CT PROCEDURES Final Re sult * POCT creatinine (12/22/2023 11:17 AM CDT) Pathologist [facility] Creatinine POC 0.9 0.7 - 1.3 mg/dL Blood 12/22/2023 11:1 7 AM CDT 12/22/2023 11:17 AM CDT Jacob Flynn MD LAB POCT ORDERABLES - DEVICE Final Result [facility] One [facility] Department [place] [address] * PSA, total and free (05/10/2019 12:35 PM TUBING ASSEMBLER) Free PSA Screen 0.4 ng/mL [employer] PROSTATE SPECIFIC AG, TOTAL 1.9 0.0 - 4.0 ng/mL [employer] [employer] Comment: INTERPRETIVE INFORMATION: Prostate Specific Antigen The Eboni PSA electrochemiluminescent immunoassay was used. Results obtained with different test methods or kits cannot be used interchangeably. The Eboni PSA method is approved for use as an aid in the detection of prostate cancer when used in conjunction with a digital rectal exam in men age 50 and older. The Eboni PSA method is also indicated for the serial measurement of PSA to aid in the prognosis and management of prostate cancer patients. Elevated PSA concentrations can only suggest the presence of prostate cancer until biopsy is performed. PSA concentrations can also be elevated in benign prostatic hyperplasia or inflammatory conditions of the prostate. PSA is generally not elevated in healthy men or men with non-prostatic carcinoma. PROSTATE SPECIFIC AG, % FREE 21 % itembase Comment: INTERPRETIVE INFORMATION: Prostate Specific Antigen, Free Percentage [employer] uses the Eboni Free PSA electrochemiluminescent immunoassay method in conjunction with the Eboni PSA electrochemiluminescent immunoassay method to determine the free PSA percentage. Values obtained with different assay methods should not be used interchangeably. The free PSA percentage is an aid in distinguishing prostate cancer from benign prostatic conditions in men age 50 and older with a total PSA between 3 and 10 ng/mL and negative digital rectal examination findings. Prostatic biopsy is required for the diagnosis of cancer. In patients with total PSA concentrations of 4-10 ng/mL, the probability of finding prostate cancer on needle biopsy by age in years is: %fPSA ? 50-59 ?60-69 ?70 or older 0 ??- 10% ?49% ?58% ?65% 11 - 18% ?27% ?34% ?41% 19 - 25% ?18% ?24% ?30% Greater than 25% ? 9% ?12% ?16% Other factors may help determine the actual risk of prostate cancer in individual patients. Performed by [employer], [address] [phone] [email or web address], Carlyle Stewart MD, Lab. Director Blood specimen (specimen) 05/10/2019 12:35 PM TUBING ASSEMBLER 05/10/2019 1:05 PM TUBING ASSEMBLER Narrative Resulting Agency Comment CLI us Alexis Lopez MD LAB BLOOD ORDERABLES Marianne conde Result [facility]base [address] [place] [address], [facility] [phone] from Last 3 Months or Most Recently Relevant to Health Maintenance Insurance [facility] CHOICE PLUS [employer] CLAIMS [employer] CLAIMS Advance Directives For more information, please contact: [phone] * Full Code (Latest Code Status on File) Date Activated Date Inactivated Comments 10/16/2023 7:50 AM 10/17/2023 4:55 AM * Full Code Date Activated Date Inactivated Comments 05/26/2019 9:27 PM 05/30/2019 9:19 PM Care Teams Web Marketing Specialist Relationship Specialty Start Date End Date Clara Stanley PA [address] [place] [address] PCP - General Nurse Practitioner 04/05/19 Jasper Canchola MD [address] [place] [address] Surgeon Thoracic Surgery 05/11/19 Alexis Lopez MD [address] [address] Axle Polisher Pulmonary Disease 05/11/19 Kip Del Rio MD [address] [place] [address] Medical Oncologist/Wedding Makeup Artist Hematology and Oncology 05/11/19 Jacob Flynn MD [address] [place] [address] Radiation Oncologist Radiation Oncology 05/25/19 Renetta Ballesteros NP [address] [place] [address] Nurse Practitioner Radiation Oncology 06/11/22
--- OUTSIDE RECORDS SUMMARY | 2024-03-02 03:41 | XMS_ITS | Encounter Summary ---
Author Organization [facility] Address [address] [place] [address] Care Team Providers Care Banquet Bartender Name Role Phone Clara Stanley Primary Care Provider + Jasper Canchola MD Unavailable Alexis Lopez MD Unavailable Kip Del Rio MD Unavailable Jacob Flynn MD Unavailable [phone] Renetta Ballesteros NP Unavailable Encounter Details Date Type Department Care Team (Late st Contact Info) Description 12/24/2023 12:30 PM CDT Lab [facility] [employer] - Lab Collection [address] 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 on file Not on file documented as of this encounter Plan of Treatment Not on file documented as of this encounter Procedures Procedure Name Priority Date/Time Associated Diagnosis Comments EGFR Routine 12/24/2023 12:27 PM CDT Neuroendocrine [...] malignant neoplasm of mediastinal lymph node (HCC) documented in this encounter Results * eGFR (12/24/2023 12:27 PM CDT) eGFR [...] Rio MD LAB BLOOD ORDERABLES Final Result [facility] One [facility] Department [place] [address] * Comprehensive metabolic panel (12/24/2023 12:27 PM CDT) Sodium 140 135 - 145 mmol/L Potassium, pl 4.2 3.3 - 4.9 mmol/L [facility] Chloride 102 97 - 110 mmol/L [facility] CO2 32 22 - 32 mmol/L [facility] Anion gap 6 2 - 15 mmol/L [facility] BUN 16 6 - 25 mg/dL [facility] Creatinine 0.87 0.80 - 1.30 mg/dL [facility] Glucose 98 70 - 199 mg/dL [facility] Comment: Interpretive Data Fasting glucose >/= [...] classification and Diagnosis of Diabetes Diabetes Care 2021; 46: S19-S40. Current interpretive data was last revised 2022. Calcium 10.1 8.5 - 10.3 mg/dL [facility] Bilirubin, total 0.4 0.1 - 1.2 mg/dL [facility] Protein, pl 7.8 6.5 - 8.5 g/dL [facility] Albumin 4.4 3.5 - 5.0 g/dL [facility] Alk phos 83 40 - 130 Units/L [facility] ALT 15 7 - 55 Units/L [facility] AST 21 10 - 50 Units/L [facility] Blood 12/24/2023 12:2 7 PM CDT 12/24/2023 12:34 PM CDT Kip Del Rio MD LAB BLOOD ORDERABLES Final Result [facility] One [facility] Department [place] [address] * (ABNORMAL) Differential, auto (12/24/2023 12:23 PM CDT) Neutrophil abs 5.0 1.5 - 6.5 K/cumm Comment:Testing performed by : [facility], [address] [place] [phone] Lymphocyte abs 1.4 0.8 - 3.3 K/cumm CERNER BJ Comment:Testing performed by : [facility], [address] [place] [phone] Monocyte abs 1.1(H) 0.2 - 0.8 K/cumm CERNER BJ Comment:Testing performed by : [facility], [address] [place] [phone] Eosinophil abs 0.2 0.0 - 0.5 K/cumm CERNER BJ Comment:Testing performed by : [facility], [address] [place] [phone] Basophil abs 0.1 0.0 - 0.1 K/cumm C[facility]ER BJ Comment:Testing performed by : [facility], [address] [place] [phone] Neutrophil pct 63.8 % [facility] BJ Comment: Interpretive Data Percent cell count reference ranges are not reported, since discordance with absolute values may lead to misinterpretation of CBC data. Current Interpretive Data was last revised on 2017. Testing performed by: [facility], [address] [place] [phone] Lymphocyte pct 18.3 % SEJAL HEARN Comment: Interpretive Data Percent cell count reference ranges are not reported, since discordance with absolute values may lead to misinterpretation of CBC data. Current Interpretive Data was last revised on 2017. Testing performed by: [facility], [address] [place] [phone] Monocyte pct 14.3 % SE[facility]AL HEARN Comment: Interpretive Data Percent cell count reference ranges are not reported, since discordance with absolute values may lead to misinterpretation of CBC data. Current Interpretive Data was last revised on 2017. Testing performed by: [facility], [address] [place] [phone] Eosinophil pct 2.7 % [facility] HE[facility] Comment: Interpretive Data Percent cell count reference ranges are not reported, since discordance with absolute values may lead to misinterpretation of CBC data. Current Interpretive Data was last revised on 2017. Testing performed by: [facility], [address] [place] [phone] Basophil pct 0.9 % [facility] HEARN Comment: Interpretive Data Percent cell count reference ranges are not reported, since discordance with absolute values may lead to misinterpretation of CBC data. Current Interpretive Data was last revised on 2017. Testing performed by: [facility], [address] [place] [phone] Blood 12/24/2023 12:2 3 PM CDT 12/24/2023 12:31 PM CDT us Kip Del Rio MD LAB BLOOD ORDERABLES Final Result [facility] One [facility] Department [place] [address] * (ABNORMAL) CBC with auto differential (12/24/2023 12:23 PM CDT) WBC 7.8 3.8 - 9.9 K/cumm Comment:Testing performed by : [facility], [address] [place] [address] Hgb 14.0 13.0 - 17.5 g/dL CERNER BJ Comment:Testing performed by : [facility], [address] [place] [address] Hct 42.5 38.9 - 50.3 % CERNER BJ Comment:Testing performed by : [facility], [address] [place] [address] Plt 198 150 - 400 K/cumm CERNER BJ Comment:Testing performed by : [facility], [address] [place] [address] MPV 9.7 6.8 - 10.4 fL CERNER BJ Comment:Testing performed by : [facility], [address] [place] [address] RBC 4.57 4.30 - 5.80 M/cumm CERNER BJ Comment:Testing performed by : [facility], [address] [place] [address] MCV 93.1 81.3 - 96.4 fL [facility] BJ Comment:Testing performed by : [facility], [address] [place] [address] MCH 30.7 27.1 - 33.3 pg [facility]ER BJ Comment:Testing performed by : [facility], [address] [place] [address] MCHC 33.0 32.3 - 35.7 g/dL [facility] BJ Comment:Testing performed by : [facility], [address] [place] [address] RDW CV 17.3(H) 11.1 - 14.9 % CERNER BJ Comment:Testing performed by : [facility], [address] [place] [address] NRBC abs 0.00 0.00 - 0.01 K/cumm [facility] Comment:Testing performed by : [facility], [address] [place] [address] Blood 12/24/2023 12:2 3 PM CDT 12/24/2023 12:31 PM CDT Kip Del Rio MD LAB BLOOD ORDERABLES Final Result Performing Organization Address City/State/[facility] Co de Phone Number [facility] One [facility] Department [place] [address] documented in this encounter Visit Diagnoses Diagnosis 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 documented in this encounter Care Teams Banquet Bartender Relationship Specialty Start Date End Date Clara Stanley PA [address] [place] [address] PCP - General Nurse Practitioner 04/05/19 Jasper Canchola MD [address] [place] [address] Surgeon Thoracic Surgery 05/11/19 Alexis Lopez MD [address] [address] Language And Literature Division Chair Pulmonary Disease 05/11/19 Kip Del Rio MD [address] [place] [address] Medical Oncologist/Bench Assembler Battery Hematology and Oncology 05/11/19 Jacob Flynn MD [address] [place] [address] Radiation Oncologist Radiation Oncology 05/25/19 Renetta Ballesteros NP [address] [facility] [address] [place] [address] Nurse Practitioner Radiation Oncology 06/11/22 documented as of this encounter
--- OUTSIDE RECORDS SUMMARY | 2024-03-02 03:41 | XMS_ITS | Encounter Summary ---
Author Organization [facility] Address [address] [place] [address] Care Team Providers Care Volleyball Coach Name Role Phone Clara Stanley Primary Care Provider + Jasper Canchola MD Unavailable Alexis Lopez MD Unavailable Kip Del Rio MD Unavailable Jacob Flynn MD Unavailable Renetta Ballesteros NP Unavailable [phone] Encounter Details Date Type Department Care Team (Late st Contact Info) Description 11/20/2023 12:30 PM CDT Lab [facility] [address] [facility] Advanced Medicine 7th [place] [address] Primary cancer of right lower lobe of lung (HCC) Social History Tobacco Use Types Packs/Day [...] on file 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 Gender Identity Not on file Sexual Orientation Straight 09/22/2019 8: 21 PM CDT 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 on file Not on file documented as of this encounter Plan of Treatment Not on file documented as of this encounter Procedures Procedure Name Priority Date/Time Associated Diagnosis Comments EGFR STAT 11/20/2023 12:58 PM CDT Primary cancer of right lower lobe of lung (HCC) DIFFERENTIAL AUTO Routine 11/20/2023 12: 58 PM CDT Primary cancer of right lower lobe of lung (HCC) CBC WITH AUTO DIFFERENTIAL Routine 11/20/2023 12:58 PM CDT Primary cancer of right lower lobe of lung (HCC) COMPREHENSIVE METABOLIC PANEL STAT 11/20/2023 12:58 PM CDT Primary cancer of right lower lobe of lung (HCC) documented in this encounter Results * eGFR (11/20/2023 12:58 PM CDT) eGFR >90 >=60 mL/min/1. 73 [...] was last reviewed 2021. Testing performed by: [facility], [address] [place] [phone] Blood 11/20/2023 12:5 8 PM CDT 11/20/2023 1:03 PM CDT us Kip Del Rio MD LAB BLOOD ORDERABLES Final Result [facility] One [facility] Department [place] [address] * (ABNORMAL) Differential, auto (11/20/2023 12:58 PM CDT) Neutrophil abs 7.3(H) 1.5 - 6.5 K/cumm Comment:Testing performed by : [facility], [address] [place] [phone] Lymphocyte abs 1.5 0.8 - 3.3 K/cumm [facility]AL HEARN Comment:Testing performed by : [facility], [address] [place] [phone] Monocyte abs 1.3(H) 0.2 - 0.8 K/cumm [facility] Comment:Testing performed by : [facility], [address] [place] [phone] Eosinophil abs 0.3 0.0 - 0.5 K/cumm [facility]ARN Comment:Testing performed by : [facility], [address] [place] [phone] Basophil abs 0.0 0.0 - 0.1 K/cumm [facility] HEARN Comment:Testing performed by : [facility], [address] [place] [phone] Neutrophil pct 70.1 % [facility]ARN Comment: Interpretive Data Percent cell count reference ranges are not reported, since discordance with absolute values may lead to misinterpretation of CBC data. Current Interpretive Data was last revised on 2017. Testing performed by: [facility], [address] [place] [phone] Lymphocyte pct 14.3 % [facility]AL HEARN Comment: Interpretive Data Percent cell count reference ranges are not reported, since discordance with absolute values may lead to misinterpretation of CBC data. Current Interpretive Data was last revised on 2017. Testing performed by: [facility], [address] [place] [phone] Monocyte pct 12.3 % SEJAL HEARN Comment:Testing performed by : [facility], [address] [place] [phone] Eosinophil pct 2.8 % SEJAL HEARN Comment:Testing performed by : [facility], [address] [place] [phone] Basophil pct 0.5 % SEJAL HEARN Comment:Testing performed by : [facility], [address] [place] [phone] Blood 11/20/2023 12:5 8 PM CDT 11/20/2023 1:03 PM CDT us Kip Del Rio MD LAB BLOOD ORDERABLES Final Result [facility] Department [place] [address] * (ABNORMAL) CBC with auto differential (11/20/2023 12:58 PM CDT) WBC 10.4(H) 3.8 - 9.8 K/cumm Comment:Testing performed by : [facility], [address] [place] [phone] Hgb 13.8 13.8 - 17.2 g/dL SEJAL ARNOLD Comment:Testing performed by : [facility], [address] [place] [phone] Hct 41.1 40.7 - 50.3 % CERRAFAELA BJ Comment:Testing performed by : [facility], [address] [place], [place] [phone] Plt 229 140 - 440 K/cumm SEJAL HEARN Comment:Testing performed by : [facility], [address] [place], [place] [phone] MPV 9.4 6.8 - 10.4 fL SEJAL BJ Comment:Testing performed by : [facility], [address] [place], [place] [phone] RBC 4.53 4.50 - 5.70 M/cumm SEJAL BJ Comment:Testing performed by : [place] [phone] MCV 90.7 80.0 - 97.6 fL SEJAL HEARN Comment:Testing performed by : [facility], [address] [place], [place] [phone] MCH 30.4 26.7 - 33.7 pg SEJAL HEARN Comment:Testing performed by : [facility], [address] [place] [phone] MCHC 33.5 32.7 - 35.5 g/dL [facility] Comment:Testing performed by : [place] [phone] RDW CV 15.2(H) 11.8 - 14.6 % SEJAL HEARN Comment:Testing performed by : [address] [phone] NRBC abs 0.01 0.00 - 0.01 K/cumm [facility] Comment:Testing performed by : [facility], [address] [place] [phone] Blood 11/20/2023 12:5 8 PM CDT 11/20/2023 1:03 PM CDT us Kip Del Rio MD LAB BLOOD ORDERABLES Final Result [facility] One [facility] Department [place] [address] * (ABNORMAL) Comprehensive metabolic panel (11/20/2023 12:58 PM CDT) Sodium 136 135 - 145 mmol/L Comment:Testing performed by : [facility], [address] [place] [phone] Potassium, pl 4.7 3.3 - 4.9 mmol/L [facility] Comment:Testing performed by : [facility], [address] [place] [phone] Chloride 101 97 - 110 mmol/L CERNER BJ Comment:Testing performed by : [facility], [address] [place] [phone] CO2 29 22 - 32 mmol/L [facility] BJ Comment:Testing performed by : [facility], [address] [place] [phone] Anion gap 6 2 - 15 mmol/L [facility] BJ Comment:Testing performed by : [address] [phone] BUN 14 6 - 25 mg/dL C[facility]ER BJ Comment:Testing performed by : [facility], [address] [place] [phone] Creatinine 0.75(L) 0.80 - 1.30 mg/dL [facility] BJ Comment:Testing performed by : [facility], [address] [place] [phone] Glucose 97 70 - 199 mg/dL [facility] Comment: Interpretive Data Fasting glucose >/= 126 [...] was last revised 2022. Testing performed by: [facility], [address] [place] [phone] Calcium 10.0 8.5 - 10.3 mg/dL CERNER BJ Comment:Testing performed by : [facility], [address] [place] [phone] Bilirubin, total 0.5 0.1 - 1.2 mg/dL [facility] Comment:Testing performed by : [facility], [address] [place] [phone] Protein, pl 7.7 6.5 - 8.5 g/dL [facility] Comment:Testing performed by : [facility], [address] [place] [phone] Albumin 4.4 3.5 - 5.0 g/dL [facility] Comment:Testing performed by : [facility], [address] [place] [phone] Alk phos 91 40 - 130 Units/L [facility] Comment:Testing performed by : [facility], [address] [place] [phone] ALT 25 7 - 55 Units/L [facility] Comment:Testing performed by : [facility], [address] [place] [phone] AST 24 10 - 50 Units/L [facility] Comment:Testing performed by : [facility], [address] [place] [phone] Blood 11/20/2023 12:5 8 PM CDT 11/20/2023 1:03 PM CDT us Kip Del Rio MD LAB BLOOD ORDERABLES Final Result Performing Organization Address City/State/[facility] Co de Phone Number [facility] Department [place] [address] documented in this encounter Visit Diagnoses Diagnosis Primary cancer of right lower lobe of lung (HCC) documented in this encounter Care Teams Volleyball Coach Relationship Specialty Start Date End Date Clara Stanley PA [address] [place] [address] PCP - General Nurse Practitioner 04/05/19 Jasper Canchola MD [address] [place] [address] Surgeon Thoracic Surgery 05/11/19 Alexis Lopez MD [address] [facility] [address] [address] Major Assembly Inspector Pulmonary Disease 05/11/19 Kip Del Rio MD [address] [address] [place] [address] Medical Oncologist/Customer Services Manager Hematology and Oncology 05/11/19 Jacob Flynn MD [address] [place], [place] [id number] Radiation Oncologist Radiation Oncology 05/25/19 Renetta Ballesteros NP [address] [facility] [address] [place] [address] Nurse Practitioner Radiation Oncology 06/11/22 documented as of this encounter
--- OUTSIDE RECORDS SUMMARY | 2024-03-02 03:41 | XMS_ITS | Encounter Summary ---
Author Organization [facility] Address [address] [place] [address] Care Team Providers Care Cottage Master Name Role Phone Clara Stanley Primary Care Provider + Jasper Canchola MD Unavailable Alexis Lopez MD Unavailable Kip Del Rio MD Unavailable Jacob Flynn MD Unavailable [phone] Renetta Ballesteros NP Unavailable [phone] Reason for Visit * Reason Onset Date Comments Prior Auth 10/22/2023 Encounter Details Date Type Department Care Team (Late st Contact Info) Description 10/22/2023 Documentation [facility] [address] [facility] Advanced Medicine 7th [place] [address] Ling Juan CPhT Prior Auth Social History Tobacco Use Types Packs/Day Years [...] on file 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 New auth keys were started. 100mg : [id number] 180MG : [id number]. Both strengths completed and response was that this medication does not require a prior auth. Test claims stated that the scripts will be covered when filled thru [facility] specialty pharmacy. Team notified, patient called, [facility] notified. FINANCIAL ASSISTANCE Co-payment Amount: $ tbd my filling pharmacy Patient Screening Information: - What's the household size?: - What's the annual household income?: $ >>>>>> Financial Toxicity Prescription Dru. 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) Co-payment Card Obtained?: tbd by filling pharmacy Co-payment Akbar Obtained?: tbd by filling pharmacy PAP ([facility] [employer] Drug) application Obtained?: NO Foundation/Organization: NEXT STEPS: [team notified to send scripts to [facility] specialty, patient called, informed they will notship the medication until they speak to the patient, patient understood PHARMACY INFORMATION: CAN THIS DRUG BE FILLED AT [facility]?: no DOES THIS DRUG REQUIRE THE USE OF A OUTSIDE SPECIALTY PHARMACY?: yes DISPENSING PHARMACY NAME [facility] Specialty [phone] PHARMACY CLAIM BENEFIT INVESTIGATION AND CO-PAYMENT SUMMARY - COMPLETED BY IN- HOUSE DISPENSING PHARMACY NOTES: (most recent development listed on top) No pa's needed, patient given my phone number for any questions or concerns. Completed by: Ling Juan CPhT documented in this encounter Plan of Treatment Not on file documented as of this encounter Visit Diagnoses Not on filedocumented in this encounter Care Teams Cottage Master Relationship Specialty Start Date End Date Clara Stanley PA [address] [place] [address] PCP - General Nurse Practitioner 04/05/19 Jasper Canchola MD [address] [place] [address] Surgeon Thoracic Surgery 05/11/19 Alexis Lopez MD [address] [address] Unemployment Claims Adjudicator Pulmonary Disease 05/11/19 Kip Del Rio MD [address] [place] [address] Medical Oncologist/Technician Anatomic Pathology Hematology and Oncology 05/11/19 Jacob Flynn MD [address] [place] [address] Radiation Oncologist Radiation Oncology 05/25/19 Renetta Ballesteros NP [address] [place] [address] Nurse Practitioner Radiation Oncology 06/11/22 documented as of this encounter
--- OUTSIDE RECORDS SUMMARY | 2024-03-02 03:41 | XMS_ITS | Encounter Summary ---
Author Organization [facility] Address [address] [place] [address] Phone Care Team Providers Care Gear Roller Name Role Phone Clara Stanley Primary Care Provider + Jasper Canchola MD Unavailable Alexis Lopez MD Unavailable Kip Del Rio MD Unavailable Jacob Flynn MD Unavailable Renetta Ballesteros NP Unavailable Encounter Details Date Type Department Care Team (Late st Contact Info) Description 02/18/2024 Orders Only [facility] Oncology [address] [facility] Floor 5 [place] [address] Kip Del Rio MD [address] [facility] [address] [place], [place] [id number] Neuroendocrine carcinoma of lung (HCC) (Primary Dx); [...] on file 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 Do not start until day 10, then take for 5 days. Days 10-14. 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 Do not start until day 10, then take for 5 days. Days 10-14. 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 documented in this encounter Discontinued Medications Medication Sig Discontinue Reason Start Date End Da te temozolomide (TEMODAR) 180 mg capsule 01/22/2024 02/18/2024 temozolomide (TEMODAR) 100 mg capsule 01/22/2024 02/18/2024 documented as of this encounter Care Teams Gear Roller Relationship Specialty Start Date End Date Clara Stanley PA [address] [place] [address] PCP - General Nurse Practitioner 04/05/19 Jasper Canchola MD [address] [place] [id number] Surgeon Thoracic Surgery 05/11/19 Alexis Lopez MD [address] [facility] [address] [address] Leases And Land Supervisor Pulmonary Disease 05/11/19 Kip Del Rio MD [address] [place] [address] Medical Oncologist/Customer Agent Hematology and Oncology 05/11/19 Jacob lFynn MD [address] [place] [address] Radiation Oncologist Radiation Oncology 05/25/19 Renetta Ballesteros NP [address] [place] [address] Nurse Practitioner Radiation Oncology 06/11/22 documented as of this encounter
--- OUTSIDE RECORDS SUMMARY | 2024-03-02 03:41 | XMS_ITS | Encounter Summary ---
Author Organization [facility] Address [address] [place] [address] Phone Care Team Providers Care Office Professional Name Role Phone Clara Stanley Primary Care Provider + Jasper Canchola MD Unavailable Alexis Lopez MD Unavailable [phone] Kip Del Rio MD Unavailable [phone] Jacob Flynn MD Unavailable [phone] Renetta Ballesteros NP Unavailable Encounter Details Date Type Department Care Team (Late st Contact Info) Description 02/18/2024 9:30 AM COMMISSIONER CONSERVATION OF RESOURCES Lab [facility] Oncology Lab [address] [facility] Floor 5 [place] [address] Neuroendocrine carcinoma of lung (HCC); Secondary malignant [...] on file Legal Sex Male 1:17 AM COMMISSIONER CONSERVATION OF RESOURCES Gender Identity Not on file Sexual Orientation [...] intrathoracic lymph nodes documented in this encounter Orders Appointment Requests Count Last Ordered Date Fi rst Ordered Date ONCBCN LAB APPOINTMENT 1 02/18/2024 documented in this encounter Care Teams Office Professional Relationship Specialty Start Date End Date Clara Stanley PA [address] [place] [address] PCP - General Nurse Practitioner 04/05/19 Jasper Canchola MD [address] [place] [address] Surgeon Thoracic Surgery 05/11/19 Alexis Lopez MD [address] [address] Cosmetology Teacher Pulmonary Disease 05/11/19 Kip Del Rio MD [address] [place] [address] Medical Oncologist/Packerhead Machine Operator Hematology and Oncology 05/11/19 Jacob Flynn MD [address] [place] [address] Radiation Oncologist Radiation Oncology 05/25/19 Renetta Ballesteros NP [address] [facility] [address] [place] [address] Nurse Practitioner Radiation Oncology 06/11/22 documented as of this encounter
--- OUTSIDE RECORDS SUMMARY | 2024-03-02 03:41 | XMS_ITS | Encounter Summary ---
Author Organization [facility] Address [address] [place] [address] Phone Care Team Providers Care Beef Cattle Farmer Name Role Phone Clara Stanley Primary Care Provider + Jasper Canchola MD Unavailable Alexis Lopez MD Unavailable Kip Del Rio MD Unavailable [phone] Jacob Flynn MD Unavailable [phone] Renetta Ballesteros NP Unavailable [phone] Encounter Details Date Type Department Care Team (Late st Contact Info) Description 01/21/2024 Orders Only [facility] Oncology [address] 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 on file Not on file documented as of this encounter Plan of Treatment Not on file documented as of this encounter Visit Diagnoses Not on filedocumented in this encounter Care Teams Beef Cattle Farmer Relationship Specialty Start Date End Date Clara Stanlye PA [address] [place] [address] PCP - General Nurse Practitioner 04/05/19 Jasper Canchola MD [address] [place] [address] Surgeon Thoracic Surgery 05/11/19 Alexis Lopez MD [address] [address] Passenger Vessel Chef Pulmonary Disease 05/11/19 Kip Del Rio MD [address] [place] [address] Medical Oncologist/Museum Exhibit Technician Hematology and Oncology 05/11/19 Jacob Flynn MD [address] [facility] [address] [place] [address] Radiation Oncologist Radiation Oncology 05/25/19 Renetta Ballesteros NP [address] [facility] [address] [place] [address] Nurse Practitioner Radiation Oncology 06/11/22 documented as of this encounter
--- OUTSIDE RECORDS SUMMARY | 2024-03-02 03:41 | XMS_ITS | Encounter Summary ---
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) Procedures MRI Brain W WO Contrast Kip Del Rio MD [address] [facility] [address] [place] [address] Phone: tel: fax: [address] [address] Referral ID Status Reason Start Date Expiration Date Visits Re quested Visits Authorized [id number] Closed 01/20/2024 02/18/2025 1 1 AGE PICK UP Reason for Visit * Diagnostic Imaging (Routine) - Closed Specialty Diagnoses / Procedures Referred By Contac t Referred To Contact Radiology Diagnoses 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) Procedures MRI Brain W WO Contrast Kip Del Rio MD [address] [facility] [address] [place] [address] Phone: tel: fax: [address] [address] Referral ID Status Reason Start Date Expiration Date Visits Re quested Visits Authorized [id number] Closed 01/20/2024 02/18/2025 1 1 Encounter Details Date Type Department Care Team (Latest Contact Info) Description 02/16/2024 4:50 PM PACKAGE PICK UP - 02/16/2024 11:59 PM PACKAGE PICK UP Hospital Encounter [facility] [address] [place] [address] 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 Can repeat x 1 during scan if needed. 5 tablet 1 4 amLODIPine (NORVASC) 10 mg tabletIndications :hypertension Take 1 tablet (10 mg total) by mouth every morning 0 ascorbic acid (VITAMIN C) 1,000 mg tablet Take 1 tablet (1,000 mg total) by mouth daily chlorthalidone (HYGROTON) 25 mg tablet 3 cholecalciferol (VITAMIN D-3) 50,000 unit capsule Take 1 capsule (50,000 Units total) by mouth fluticasone-umecl idin-vilanter (Trelegy Ellipta) 100-62.5-25 mcg inhaler Inhale 1 puff daily Rinse mouth with water after use, do not swallow 60 each 11 4 loperamide (IMODIUM A-D) 2 mg tablet Take 2 tablets ( 4 mg) after the first episode of diarrhea and 1 tablet (2 mg) after every subsequent episode for up to 8 tablets a day. Please call the office if you take 8 tablets. 90 tablet 3 4 montelukast (SINGULAIR) 10 mg tabletIndications :Mild intermittent asthma without complication TAKE (1) TABLET BY MOUTH ONCE DAILY IN THE EVENING. *VIAL* 30 tablet 3 4 multivitamin capsule Take 1 capsule by mouth daily ondansetron (ZOFRAN) 8 mg tabletIndications :Malignant neoplasm of lower lobe of right lung (HCC),Neuroendocr ine carcinoma of lung (HCC) Take 1 tablet (8 mg total) by mouth every 8 (eight) hours as needed for nausea or vomiting Take 30 minutes prior to oral chemotherapy then every 8 hours as needed up to 3 doses in 24 hours if prochlorperazine does not stop nausea. 24 tablet [address] (PROTONIX) 40 mg EC tabletIndications :Cough, persistent TAKE (1) TABLET BY MOUTH DAILY. *VIAL* 30 tablet 3 4 pravastatin (PRAVACHOL) 40 mg tablet 3 prochlorperazine (Compazine) 10 mg tabletIndications :Malignant neoplasm of lower lobe of right lung (HCC),Neuroendocr ine carcinoma of lung (HCC) Take 1 tablet (10 mg total) by mouth every 6 (six) hours as needed for nausea or vomiting Use first for nausea 120 tablet 3 4 temozolomide (TEMODAR) 100 mg capsule 4 02/18/20 24 temozolomide (TEMODAR) 180 mg capsule 4 02/18/20 24 documented as of this encounter Discharge Disposition Disposition Code Departure Means Destination Discharge to home or self care documented in this encounter Plan of Treatment Not on file documented as of this encounter Procedures Procedure Name Priority Date/Time Associated Diagnosis Comments MRI BRAIN W WO CONTRAST Schedule Routine, Read Routine (OP Routine) 02/16/2024 5:42 PM PACKAGE PICK UP 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 Dictated by: Shannon Turner MD The radiology attending physician has personally reviewed this study, and had reviewed and/or edited this written report and agrees with it. 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) documented in this encounter Administered Medications Inactive Administered Medications - up to 3 most recent administrations Medication Order MAR Action Action Date Dose Rate Site gadoterate meglumine injection 20 mL 20 mL, intravenous, Once in imaging, contrast, Starting on Tu02/16/24 at 1742, For 1 dose Contrast Given 02/16/2024 5:43 PM PACKAGE PICK UP 20 mL Right Antecubital documented in this encounter Orders Medications Ordered That Vikram ht Not Have Been Administered Count Last Ordered Date First Ordered Date gadoterate meglumine injection 20 mL 1 05/2023 documented in this encounter Care Teams Archaeologist Relationship Specialty Start Date End Date Clara Stanley PA [address] [place] [address] PCP - General Nurse Practitioner 04/05/19 Jasper Canchola MD [address] [place] [address] Surgeon Thoracic Surgery 05/11/19 Alexis Lopez MD [address] [address] Auto Parts Delivery Driver Pulmonary Disease 05/11/19 Kip Del Rio MD [address] [facility] [address] [place] [address] Medical Oncologist/Chairman Ceo Hematology and Oncology 05/11/19 Jacob Flynn MD [address] [place] [address] Radiation Oncologist Radiation Oncology 05/25/19 Renetta Ballesteros NP [address] [facility] [address] [place] [address] Nurse Practitioner Radiation Oncology 06/11/22 documented as of this encounter
--- OUTSIDE RECORDS SUMMARY | 2024-03-02 03:41 | XMS_ITS | Encounter Summary ---
Author Organization [facility] Address [address] [place] [address] Phone Care Team Providers Care Data Systems Analyst Name Role Phone Clara Stanley Primary Care Provider + Jasper Canchola MD Unavailable Alexis Lopez MD Unavailable Kip Del Rio MD Unavailable Jacob Flynn MD Unavailable Renetta Ballesteros NP Unavailable Encounter Details Date Type Department Care Team (Late st Contact Info) Description 12/24/2023 Orders Only [facility] Oncology [address] [facility] Floor [address] [place] [address] Kip Del Rio MD [address] 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 on file Not on file documented as of this encounter Plan of Treatment Not on file documented as of this encounter Visit Diagnoses Not on filedocumented in this encounter Care Teams Data Systems Analyst Relationship Specialty Start Date End Date Clara Stanley PA [address] [place] [address] PCP - General Nurse Practitioner 04/05/19 Jasper Canchola MD [address] [place] [address] Surgeon Thoracic Surgery 05/11/19 Alexis Lopez MD [address] [address] Tap Dancer Pulmonary Disease 05/11/19 Kip Del Rio MD [address] [place] [address] Medical Oncologist/Bank And Savings Securities Trader Hematology and Oncology 05/11/19 Jacob Flynn MD [address] [facility] [address] [place] [address] Radiation Oncologist Radiation Oncology 05/25/19 Renetta Ballesteros NP [address] [facility] [address] [place] [address] Nurse Practitioner Radiation Oncology 06/11/22 documented as of this encounter
--- OUTSIDE RECORDS SUMMARY | 2024-03-02 03:41 | XMS_ITS | Encounter Summary ---
Author Organization [facility] Address [address] [place] [address] Phone Care Team Providers Care Director Cloud Transformation Name Role Phone Clara Stanley Primary Care Provider + Jasper Canchola MD Unavailable Alexis Lopez MD Unavailable Kip Del Rio MD Unavailable [phone] Jacob Flynn MD Unavailable Renetta Ballesteros NP Unavailable [phone] Encounter Details Date Type Department Care Team (Late st Contact Info) Description 02/25/2024 Telephone [facility] Oncology [facility] Floor [address] [place] [address] Imelda De Leon, RN Social History Tobacco Use Types Packs/Day Years [...] on file Legal Sex Male 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 OLOGIC TECHNICIAN documented in this encounter Plan of Treatment Not on file documented as of this encounter Visit Diagnoses Not on filedocumented in this encounter Care Teams Director Cloud Transformation Relationship Specialty Start Date End Date Clara Stanley PA [address] [place] [address] PCP - General Nurse Practitioner 04/05/19 Jasper Canchola MD [address] [place] [address] Surgeon Thoracic Surgery 05/11/19 Alexis Lopez MD [address] [address] Informatics Pharmacist Pulmonary Disease 05/11/19 Kip Del Rio MD [address] [facility] [address] [place], [place] [id number] Medical Oncologist/Boxing Promoter Hematology and Oncology 05/11/19 Jacob Flynn MD [address] [place] [address] Radiation Oncologist Radiation Oncology 05/25/19 Renetta Ballesteros NP [address] [facility] [address] [place] [address] Nurse Practitioner Radiation Oncology 06/11/22 documented as of this encounter
--- OUTSIDE RECORDS SUMMARY | 2024-03-02 03:41 | XMS_ITS | Encounter Summary ---
Author Organization [facility] Address [address] [place] [address] Care Team Providers Care Electric Accounting Machine Operator Name Role Phone Clara Stanley Primary Care Provider + Jasper Canchola MD Unavailable Alexis Lopez MD Unavailable Kip Del Rio MD Unavailable Jacob Flynn MD Unavailable Renetta Ballesteros NP Unavailable Reason for Visit * Reason Onset Date Comments Medical Question/Miscellaneous 02/27/2024 Encounter Details Date Type Department Care Team (Late st Contact Info) Description 02/27/2024 Telephone [facility] [address] [place] [address] Beverly Rice NP [address] [place] [address] Medical Question/Miscellaneous Social History Tobacco Use Types Packs/Day Years [...] on file Legal Sex Male 1:17 AM [employer] Gender Identity Not on file Sexual Orientation Straight 09/22/2019 8: 21 PM CDT 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 He is taking capcitabine. Is it ok if he continues it? He was prescribed Tamiflu. I looked up drug interactions anddid not see any. If you don't see this message, I will have him to continue the medication until the team speaks to him on Thursday. Dr. Okeefe responded back and said sure. This was communicated to the patient. ERSITY DEAN documented in this encounter Plan of Treatment Not on file documented as of this encounter Visit Diagnoses Not on filedocumented in this encounter Care Teams Electric Accounting Machine Operator Relationship Specialty Start Date End Date Clara Stanley PA [address] [place] [address] PCP - General Nurse Practitioner 04/05/19 Jasper Canchola MD [address] [place] [address] Surgeon Thoracic Surgery 05/11/19 Alexis Lopez MD [address] [place] [address] [address] Investigator Narcotics Pulmonary Disease 05/11/19 Kip Del Rio MD [address] [facility] [address] [place] [address] Medical Oncologist/Crisis Therapist Hematology and Oncology 05/11/19 Jacob Flynn MD [address] [facility] [address] [place] [address] Radiation Oncologist Radiation Oncology 05/25/19 Renetta Ballesteros NP [address] [facility] [address] [place] [address] Nurse Practitioner Radiation Oncology 06/11/22 documented as of this encounter
--- OUTSIDE RECORDS SUMMARY | 2024-03-02 03:41 | XMS_ITS | Encounter Summary ---
Author Organization [facility] Address [address] [place] [address] Phone Care Team Providers Care Golf Range Attendant Name Role Phone Clara Stanley Primary Care Provider + Jasper Canchola MD Unavailable Alexis Lopez MD Unavailable [phone] Kip Del Rio MD Unavailable Jacob Flynn MD Unavailable [phone] Renetta Ballesteros NP Unavailable [phone] Reason for Visit * Oncology (Routine) - Authorized Specialty Diagnoses / Procedures Referred By Contac t Referred To Contact Oncology Diagnoses Primary cancer of right lower lobe of lung (HCC) Jacob Flynn MD [address] [facility] [address] [place] [address] Phone: tel: fax: Kip Del Rio MD [address] [facility] [address] [place] [address] Phone: tel: fax: Referral ID Status Reason Start Date Expiration Date Visits Requested Visits Authorized [id number] Authorized Specialty Services Required 09/25/2023 03/15/2024 99 [phone] Encounter Details Date Type Department Care Team (Late st Contact Info) Description 12/24/2023 1:20 PM CDT Office Visit [facility] [address] [facility] [address] [place] [address] Kip Del Rio MD [address] [facility] [address] [place] [address] 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); Neuroendocrine carcinoma of lung (HCC) Social History Tobacco Use [...] on file Legal 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 Gender Identity Not on file Sexual Orientation Straight 09/22/2019 8: 21 PM CDT 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 on file Not on file documented as of this encounter Last Filed Vital Signs Vital Sign Reading Time Taken Comments Blood Pressure 125/79 12/24/2023 1:16 PM CDT Pulse 77 12/24/2023 1:16 PM CDT Temperature 36.6 ??C (97.9 ??F) 12/24/2023 1:16 PM CD T Respiratory Rate 19 12/24/2023 1:16 PM CDT Oxygen Saturation 98% 12/24/2023 1:16 PM CDT Inhaled Oxygen Concentration - - Weight 148.9 kg (328 lb 3.2 oz) 12/24/2023 1:16 PM CDT Height - - Body Mass Index 41.02 10/16/2023 7:54 AM CDT documented in this encounter Ordered Prescriptions Prescription Sig Dispense Quantity Refills Last Filled Start Date End Date temozolomide (TEMODAR) 180 mg capsuleIndications :Neuroendocrine carcinoma of lung (HCC),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 Do not start until day 10, then take for 5 days. Days 10-14. 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 Do not start until day 10, then take for 5 days. Days 10-14. 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 Do not start until day 10, then take for 5 days. Days 10-14. 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 Do not start until day 10, then take for 5 days. Days 10-14. 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 84 tablet 12/24/2023 4 documented in this encounter Progress Notes * Kip Del Rio MD - 12/24/2023 1:20 PM CDT Images from the original note were not included. Oncology Progress Note Cancer Staging No matching staging information was found for the patient. Oncology History Overview Note Diagnosis: High-grade neuroendocrine carcinoma of the lung diagnosed 05/06/2019. Disease progression to the right paratracheal lymph node - biopsy proven 2R lymph node on 12/24/2020 demonstrated neuroendocrine carcinoma Liver biopsy 10/16/2023: metastatic well-differentiated neuroendocrine tumor. Genomics: Cell-free DNA through [id number] 10/01/2023: FGFR2 [id number] (0.2%), ARTIS [id number] (0.2%). MSI-High Not Detected. Treatment: Right lower lobectomy and mediastinal lymph node dissection for excision of a T1cN2 neuroendocrine carcinoma on 05/26/2019. Radiation therapy to the subcarinal lymph node for a total of 6,000 cGy in 15 fractions, 01/31-02/21/2021. Capecitabine and Temozolomide initiated 10/28/2023. He started capecitabine and temozolomide on 10/28/2023. The treatments consist of capecitabine on days 1-14 and temozolomide on days 9-14, with days 14-28 off. Each cycle will consist of 28 days. He tolerated cycle 1 quite well. He will start cycle 2 on 11/25/2023. Neuroendocrine carcinoma of lung (CMS/HCC) (HCC) 05/10/2019 Initial Diagnosis Neuroendocrine carcinoma of lung (CMS/HCC) (HCC) Active Treatment Plans for Kwaku Kulkarni [facility] Chemotherapy Treatment: Capecitabine / Temozolomide PO 28 day cycle - Neuroendocrine Current day: Day 1, Cycle 2 (Planned for 11/19/2023) Following planned day: Day 1, Cycle 3 (Planned for 12/24/2023) Subjective Interval History Mr. Kulkarni presents today for follow-up accompanied by his . He started capecitabine and temozolomide. He is doing well with no side effects of chemotherapy. He denies any recent fevers, chills, worsening cough or dyspnea, rash, or diarrhea. He denies any pain. Past Medical History: Diagnosis Date LEIDA (acute kidney injury) (HCC) Asthma Cancer (CMS/HCC) (HCC) Carcinoid tumor of lung right lung Chronic headaches 03/2019 IIH (idiopathic intracranial hypertension) Hypertension Hyponatremia IIH (idiopathic intracranial hypertension) LEONOR (obstructive sleep apnea) 12/02/2019 Past Surgical History: Procedure Laterality Date ABDOMINAL SURGERY APPENDECTOMY BRONCHOSCOPY 05/30/2019 COLONOSCOPY 2019 COLONOSCOPY ESOPHAGOGASTRODUODENOSCOPY 04/2019 LUMBAR PUNCTURE 04/03/2019 MEDIASTINOSCOPY 05/19/2019 Cervical Mediastinoscopy THORACOTOMY 05/26/2019 THORACOTOMY LOBECTOMY / lymph node disection (Right) TONSILLECTOMY US GUIDED BIOPSY LIVER N/A 10/16/2023 Family History Problem Relation Age of Onset Cancer Mother Heart disease Father Cancer Father Other (lung cancer) Sister Anesthesia problems Neg Hx No Known Allergies Current Outpatient Medications: amLODIPine (NORVASC) 10 mg tablet, Take 1 tablet (10 mg total) by mouth every morning, Disp: , Rfl: ascorbic acid (VITAMIN C) 1,000 mg tablet, Take 1 tablet (1,000 mg total) by mouth daily, Disp: , Rfl: capecitabine (XELODA) 500 mg tablet, TAKE 3 TABLETS BY MOUTH 2 TIMES A DAY FOR 14 DAYS ON DAYS 1-14OF A 28 DAY CYCLE, Disp: 84 tablet, Rfl: 11 chlorthalidone (HYGROTON) 25 mg tablet, , Disp: , Rfl: cholecalciferol (VITAMIN D-3) 50,000 unit capsule, Take 1 capsule (50,000 Units total) by mouth, Disp: , Rfl: vfgrnygfbfq-feokemxxl-wghkrfci (Trelegy Ellipta) 100-62.5-25 mcg inhaler, Inhale 1 puff daily [place] with water after use, do not swallow, Disp: 60 each, Rfl: 11 loperamide (IMODIUM A-D) 2 mg tablet, Take 2 tablets ( 4 mg) after the first episode of diarrhea and 1 tablet (2 mg) after every subsequent episode for up to 8 tablets a day. Please call the office if you take 8 tablets., Disp: 90 tablet, Rfl: 3 montelukast (SINGULAIR) 10 mg tablet, TAKE (1) TABLET BY MOUTH ONCE DAILY IN THE EVENING. *VIAL*, Disp: 30 tablet, Rfl: 3 multivitamin capsule, Take 1 capsule by mouth daily, Disp: , Rfl: ondansetron (ZOFRAN) 8 mg tablet, Take 1 tablet (8 mg total) by mouth every 8 (eight) hours as needed for nausea or vomiting Take 30 minutes prior to oral chemotherapy then every 8 hours as needed upto 3 doses in 24 hours if prochlorperazine does not stop nausea., Disp: 24 tablet, Rfl: [address] (PROTONIX) 40 mg EC tablet, TAKE (1) TABLET BY MOUTH DAILY. *VIAL*, Disp: 30 tablet, Rfl: 3 pravastatin (PRAVACHOL) 40 mg tablet, , Disp: , Rfl: prochlorperazine (Compazine) 10 mg tablet, Take 1 tablet (10 mg total) by mouth every 6 (six) hoursas needed for nausea or vomiting Use first for nausea, Disp: 120 tablet, Rfl: 3 temozolomide (TEMODAR) 100 mg capsule, TAKE 3 CAPSULES BY MOUTH 1 TIME A DAY ON DAYS 10-14 OF A 28 DAY CYCLE. (TOTAL DAILY DOSE OF 480 MG), Disp: 15 capsule, Rfl: 0 temozolomide (TEMODAR) 180 mg capsule, TAKE 1 CAPSULE BY MOUTH 1 TIME A DAY ON DAYS 10-14 OF A 28 DAY CYCLE (TOTAL DAILY DOSE OF 480 MG), Disp: 5 capsule, Rfl: 0 fexofenadine (CHERELLE) 180 mg tablet, Take 1 tablet (180 mg total) by mouth daily, Disp: 30 tablet,Rfl: 11 fluticasone propionate (FLONASE) 50 mcg/actuation nasal spray, Administer 2 sprays into each nostril daily, Disp: 16 g, Rfl: 6 nitroglycerin (NITROSTAT) 0.4 mg SL tablet, Place 1 tablet (0.4 mg total) under the tongue every 5 (five) minutes as needed, Disp: , Rfl: Review of Systems: As per Interval History. All other systems reviewed and negative. Performance Status: 1 Objective Vitals: Most Recent : No data recorded Physical Exam: General: Well-appearing, in no acute distress. Ambulatory without assistance. Gait is stable. HEENT: Sclera anicteric, no palor, mucous membranes moist. Lymphatics: No cervical or supraclavicular adenopathy. Chest: Clear to auscultation bilaterally. No increased work of breathing Heart: Regular rate and rhythm. No murmur, rub, or gallop. Extremities: No edema, clubbing, or cyanosis noted. Skin: No rash Neurologic: Alert, speech normal, no gross motor or sensory deficits noted. Psychiatric exam: Appropriate affect Lab/Radiology/Diagnostic Review: Hematology Lab History Latest Ref Rng & Units 10/22/2023 14:20 11/12/2023 14:53 11/20/2023 12:58 12/24/2023 12:23 Labs - Hematology WBC 3.8 - 9.9 K/cumm 12.0 9.7 10.4 7.8 Total Hb, POC 13.0 - 17.5 g/dL 13.7 13.2 13.8 14.0 Hct 38.9 - 50.3 % 41.7 38.7 41.1 42.5 Plt 150 - 400 K/cumm 246 228 229 198 Neutrophil abs 1.5 - 6.5 K/cumm 8.8 7.1 7.3 5.0 Lymphocytes, abs 0.8 - 3.3 K/cumm 1.7 1.1 1.5 1.4 Chem/LFT Lab History Latest Ref Rng & Units 11/12/2023 14:53 11/20/2023 12:58 12/22/2023 11:17 12/24/2023 12:27 Labs-Chem/LFT Sodium 135 - 145 mmol/L 137 136 140 Creatinine 0.80 - 1.30 mg/dL 0.58 0.75 0.87 Bilirubin, total 0.1 - 1.2 mg/dL 0.4 0.5 0.4 AST 10 - 50 Units/L 36 24 21 ALT 7 - 55 Units/L 35 25 15 Alk phos 40 - 130 Units/L 87 91 83 CrCl- Actual Body Weight (Cockcroft-Gault) 304.6 235.5 196.3 203 Lab Results Component Value Date POTASSIUM 4.2 12/24/2023 CO2 32 12/24/2023 CHLORIDE 102 12/24/2023 GLUCOSE 98 12/24/2023 Lab Results Component Value Date CALCIUM 10.1 12/24/[address] Chest Abdomen Pelvis W Contrast Result Date: 12/22/2023 1. Stable right lung posttreatment changes, right hilar and mediastinal lymph nodes, and subcentimeter right middle lobe nodules. No findings of disease progression in the chest. 2. Interval decreasein size and number of hypoattenuating liver lesions. No new sites of abdominal metastatic disease. Assessment/Plan Mr. 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 His prior treatments include right lower lobectomy in 2019 and radiation to subcarinal lymph node for a total of 6,000 cGy in 15 fractions after lymph node recurrence in 2020. He was placed on observation until repeat scans in September 2023 that revealed the presence of multiple lesions throughout the left and right hemiliver concerning for hepatic metastatic disease. He underwent a CT-guided liver biopsy which demonstrated metastatic well-differentiated neuroendocrine tumor, atypical carcinoid with Ki- 67 of 8.1%. He started capecitabine and temozolomide on 10/28/2023. The treatments consist of capecitabine on days 1-14 and temozolomide on days 9-14, with days 14-28 off. Each cycle will consist of 28 days. He tolerated treatment quite well. I am pleased with his progress. Kip Del Rio M.D. Division of Oncology [facility] documented in this encounter Plan of Treatment Not on file documented as of this encounter Results * (ABNORMAL) CBC with auto differential (01/21/2024 8:59 AM TELEVISION NEWS ANCHOR) WBC 8.6 3.8 - 9.9 K/cumm Comment:Testing performed by : [facility], [address] [place] [address] Hgb 14.7 13.0 - 17.5 g/dL SEJAL BJ Comment:Testing performed by : [facility], [address] [place] [address] Hct 43.9 38.9 - 50.3 % CERRAFAELA BJ Comment:Testing performed by : [facility], [address] [place] [address] Plt 210 150 - 400 K/cumm CERRAFAELA BJ Comment:Testing performed by : [facility], [address] [place] [address] MPV 9.7 6.8 - 10.4 fL CERRAFAELA BJ Comment:Testing performed by : [facility], [address] [place] [address] RBC 4.66 4.30 - 5.80 M/cumm CERRAFAELA BJ Comment:Testing performed by : [facility], [address] [place], [place] [id number] MCV 94.3 81.3 - 96.4 fL SEJAL HEARN Comment:Testing performed by : [facility], [address] [place], [place] [phone] MCH 31.6 27.1 - 33.3 pg SEJAL HEARN Comment:Testing performed by : [facility], [address] [place], [place] [phone] MCHC 33.6 32.3 - 35.7 g/dL SEJAL HEARN Comment:Testing performed by : [facility], [address] [place], [place] [phone] RDW CV 17.7(H) 11.1 - 14.9 % SEJAL HEARN Comment:Testing performed by : [facility], [address] [place], [place] [phone] NRBC abs 0.00 0.00 - 0.01 K/cumm SEJAL HEARN Comment:Testing performed by : [facility], [address] [place], [place] [phone] Blood 01/21/2024 8:59 AM TELEVISION NEWS ANCHOR 01/21/2024 9:01 AM TELEVISION NEWS ANCHOR us Kip Del Rio MD LAB BLOOD ORDERABLES Final Result [facility] Department [place] [address] * (ABNORMAL) Comprehensive metabolic panel (01/21/2024 8:57 AM TELEVISION NEWS ANCHOR) Sodium 140 135 - 145 mmol/L Potassium, pl 4.7 3.3 - 4.9 mmol/L [facility] Chloride 101 97 - 110 mmol/L [facility] CO2 32 22 - 32 mmol/L [facility] Anion gap 7 2 - 15 mmol/L [facility] BUN 17 6 - 25 mg/dL [facility] Creatinine 0.73(L) 0.80 - 1.30 mg/dL [facility] Glucose 103 70 - 199 mg/dL [facility] Comment: Interpretive Data Fasting glucose [...] 2022. Calcium 10.5(H) 8.5 - 10.3 mg/dL [facility] Bilirubin, total 0.4 0.1 - 1.2 mg/dL [facility] Protein, pl 8.5 6.5 - 8.5 g/dL [facility] Albumin 4.6 3.5 - 5.0 g/dL [facility] Alk phos 93 40 - 130 Units/L [facility] ALT 21 7 - 55 Units/L [facility] AST 23 10 - 50 Units/L [facility] Blood 01/21/2024 8:57 AM TELEVISION NEWS ANCHOR 01/21/2024 9:05 AM TELEVISION NEWS ANCHOR Kip Del Rio MD LAB BLOOD ORDERABLES Final Result 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 Secondary and unspecified malignant neoplasm of intrathoracic lymph nodes Neuroendocrine carcinoma of lung (HCC) documented in this encounter Discontinued Medications Medication Sig Discontinue Reason Start Date End Da te semaglutide (Wegovy) 0.25 mg/0.5 mL auto-injector Inject 0.5 mL (0.25 mg total) under the skin once a week Therapy completed 09/22/2023 12/24/2023 capecitabine (XELODA) 500 mg tabletIndications:Malign ant neoplasm of lower lobe of right lung (HCC),Neuroendocrine carcinoma of lung (HCC) TAKE 3 TABLETS BY MOUTH 2 TIMES A DAY FOR 14 DAYS ON DAYS 1-14 OF A 28 DAY CYCLE 11/06/2023 12/24/2023 temozolomide (TEMODAR) 100 mg capsuleIndications:Malig nant neoplasm of lower lobe of right lung (HCC),Neuroendocrine carcinoma of lung (HCC) TAKE 3 CAPSULES BY MOUTH 1 TIME A DAY ON DAYS 10-14 OF A 28 DAY CYCLE. 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 Do not start until day 10, then take for 5 days. Days 10-14. 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 Do not start until day 10, then take for 5 days. Days 10-14. 12/24/2023 12/24/2023 documented as of this encounter Orders Nursing Count Last Ordered Date First Orde red Date ONCBCN TREATMENT PARAMETERS 8 1 12/24/2023 Appointment Requests Count Last Ordered Date Fi rst Ordered Date ONCBCN LAB APPOINTMENT 1 01/22/2024 ONCBCN CLINIC APPOINTMENT REQUEST 3 024 12/24/2023 documented in this encounter Care Teams Golf Range Attendant Relationship Specialty Start Date End Date Clara Stanley PA [address] [place] [address] PCP - General Nurse Practitioner 04/05/19 Jasper Canchola MD [address] [place] [address] Surgeon Thoracic Surgery 05/11/19 Alexis Lopez MD [address] [address] Guitar Instructor Pulmonary Disease 05/11/19 Kip Del Rio MD [address] [place] [address] Medical Oncologist/Order Packer Or Packager Hematology and Oncology 05/11/19 Jacob Flynn MD [address] [place] [address] Radiation Oncologist Radiation Oncology 05/25/19 Renetta Ballesteros NP [address] [place] [address] Nurse Practitioner Radiation Oncology 06/11/22 documented as of this encounter
--- OUTSIDE RECORDS SUMMARY | 2024-03-02 03:41 | XMS_ITS | Clinical Summary ---
Author Organization [facility] Address [address] [place] [address] Care Team Providers Care Consumer Affairs Director Name Role Phone Clara Stanley Primary Care Provider + Jasper Canchola MD Unavailable Alexis Lopez MD Unavailable Kip Del Rio MD Unavailable Jacob Flynn MD Unavailable Renetta Ballesteros NP Unavailable Allergies No known active allergies Medications amLODIPine [...] total) by mouth daily 30 tablet 11 Active fluticasone propionate (FLONASE) 50 mcg/actuation nasal sprayIndication s:Cough, persistent Administer 2 sprays into each nostril daily 16 g 6 Active chlorthalidone (HYGROTON) 25 mg tablet 023 Active pravastatin (PRAVACHOL) 40 mg tablet Active fluticasone-ume clidin-vilanter (Trelegy Ellipta) 100-62.5-25 mcg [...] IN THE EVENING. *VIAL* 30 tablet [address] (PROTONIX) 40 mg EC [...] pressure. Assessment & Plan (02/26/2022 2:50 PM STEEL SPAR OPERATOR): Patient will continue with positional therapy. I did encourage the patient to resume CPAP therapy at an auto titrating range of 5-20 cm water pressure. Assessment & Plan (02/01/2021 11:11 AM STEEL SPAR OPERATOR): The patient has an auto titrating CPAP unit with a range of 5-20 cm water pressure. He is going to restart CPAP therapy. I will send an order to [employer] for new supplies. Assessment & Plan (10/05/2020 11:01 AM CDT): I did encourage the patient to use the auto titrating CPAP unit with a range of 5-20 cm water pressure. His DME is [employer]. Assessment & Plan (04/06/2020 9:51 AM STEEL SPAR OPERATOR): The patient was encouraged to resume auto [...] need for supplies. The DME company is [employer]. The patient is benefitting from CPAP therapy. [...] Amador. Assessment & Plan (02/26/2022 2:51 PM STEEL SPAR OPERATOR): The patient was given a trial of [...] PFT. Assessment & Plan (02/01/2021 11:10 AM STEEL SPAR OPERATOR): I did recommend that the patient try to use the Symbicort b.i.d. for period of time to see if this will resolve the coughing. Continues to use the albuterol on a p.r.n. basis. He continues on Flonase and Zyrtec daily. He does have some reflux symptoms and I did recommend that he try an [id number] proton pump inhibitor. Assessment & Plan (10/05/2020 11:01 AM CDT): The patient is breathing has been under good control with albuterol MDI, Symbicort and Flonase. Assessment & Plan (04/06/2020 9:51 AM STEEL SPAR OPERATOR): The patient will continue with Symbicort 2 [...] (06/04/2021): Added automatically from request for surgery [id number] Added automatically from request for surgery [id number] Last Assessment & Plan: The patient's cough has essentially resolved with treatment of his cough variant of asthma with Symbicort, gastroesophageal reflux with Pepcid and Flonase for postnasal drip. I did tell him he could try stopping the Flonase and/or the Pepcid to see if the Symbicort alone would control the cough. Added automatically from request for surgery [id number] Last Assessment & Plan: The patient's cough [...] PM CDT): The patient did see the tile erector but he did not reveal a reason [...] dry cough now. He did see the tile erector and allergy shots versus Dupixent is being considered. He will continue on Protonix 40 mg daily. I will consider bronchoscopy if the allergy shots/Dupixent do not control the cough. Assessment & Plan (02/26/2022 2:52 PM STEEL SPAR OPERATOR): Patient will continue treating the asthma with [...] with Flonase and Hui for now. The tile erector skin test is pending. I will check a methacholine challenge since he recently had normal PFTs. Allergies 07/11/2019 Assessment & Plan (08/08/2022 9:59 AM CDT): The patient has not heard from the tile erector. I did send a message to our office staff to follow-up. LEIDA (acute kidney injury) ([facility]) 05/28/2019 Overview (06/04/2021): Last Assessment & Plan: Elevated Cr of 1.35. Hyponatremia to 127 Restart acetazolamide. AM BMP Last Assessment & Plan: Elevated Cr of 1.35. Hyponatremia to 127 Restart acetazolamide. AM BMP Assessment & Plan (05/30/2019 7:45 AM CDT): Elevated Cr of 1.35. Hyponatremia to 127 Restart acetazolamide. AM BMP Neuroendocrine carcinoma of lung ([facility]) 05/10 IIH (idiopathic intracranial hypertension) 04/01 Varicose [...] night protocol if necessary and no MSLT. Encounters Date Type Department Care Team Description 02/27/[address] 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); Neuroendocrine carcinoma of lung (HCC) 02/18/2024 9:45 AM STEEL SPAR OPERATOR Lab [facility] - Lab Collection [address] [place] [phone] Neuroendocrine carcinoma of lung (HCC); 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) 02/18/2024 9:30 AM STEEL SPAR OPERATOR Lab [facility] Lab [address] [place] [phone] Neuroendocrine carcinoma of lung (HCC); 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) 01/21/2024 9:00 AM STEEL SPAR OPERATOR Lab [facility] - Lab Collection [address] [place] [address] Floor [address] [place] [address] Neuroendocrine carcinoma of lung (HCC); 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) 01/21/2024 8:45 AM STEEL SPAR OPERATOR Lab [facility] Lab [address] [place] [address] 5 [place] [address] Neuroendocrine carcinoma of lung (HCC); 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) 01/21/2024 Orders Only [facility] [address] [place] [address] 5 [place] [address] Kip Del Rio MD 01/18/2024 Orders Only [facility] [address] [place] [address] 5 [place] [phone] Cheri Leonard DNP 01/18/2024 Orders Only [facility] [address] [place] [address] 5 [place] [address] Kip Del Rio MD Neuroendocrine carcinoma of lung (HCC) (Primary Dx); 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) 12/24/2023 1:20 PM CDT Office Visit [facility] Floor 5 [place] [address] Kip Del Rio MD 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); Neuroendocrine carcinoma of lung (HCC) 12/24/2023 12:30 PM CDT Lab [facility] - Lab Collection [address] [facility] Floor [address] [place] [address] Neuroendocrine carcinoma of lung (HCC); 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) 12/24/2023 12:15 PM CDT Lab [facility] Lab [facility] Floor [address] [place] [address] 12/24/2023 Orders Only [facility] [address] [place] [address] Floor 5 [place] [address] Kip Del Rio MD 12/22/2023 11:05 AM CDT - 12/22/2023 11:59 PM CDT Hospital Encounter [facility] [place] [address] [facility] Floor [address] [place] [address] 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); Neuroendocrine carcinoma of lung (HCC) Discharge Disposition: Discharge to home or self care 12/04/2023 Telephone [facility] [address] [place] [address] [place] [address] [place] [address] Imelda De Leon RN 12/03/2023 Orders Only [facility] [address] [place] [address] [place] [address] Kip Del Rio MD 12/03/2023 Orders Only [facility] [address] [place] [address] [place] [address] [place] [address] Naomi Bains [facility] from Last 3 Months Immunizations Name Administration Dates Next Due Influenza, Quadrivalent, Spl it, Preservative Free, Intramuscular 12/23/2022,03/28/2020 Influenza, Unspecified 12/09/2021 Pneumococcal Conjugate Pcv20 12/23/2022 Pneumococcal Polysaccharide PPV23 08/31/2019 Tdap 01/28/2019 ZOSTER Recombinant 02/22/2022,07/07/2021 Surgical History Surgery Date Site/Laterality Comments APPENDECTOMY COLONOSCOPY 03/16/2018 - 03/15/2019 THORACOTOMY 05/26/2019 THORACOTOMY LOBECTOMY / lymph node disection (Right) MEDIASTINOSCOPY 05/19/2019 Cervical Mediastinoscopy TONSILLECTOMY COLONOSCOPY LUMBAR PUNCTURE 04/03/2019 BRONCHOSCOPY 05/30/2019 ESOPHAGOGASTRODUODENOSCOPY 04/16/2019 - 05/14/2019 ABDOMINAL SURGERY US GUIDED BIOPSY LIVER 10/16/2023 N/A Medical History Medical History Date Comments IIH (idiopathic intracranial hypertension) Hyponatremia LEIDA (acute kidney injury) (HCC) 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 Chronic headaches 03/2019 IIH (idiopathi c intracranial hypertension) LEONOR (obstructive sleep apnea) 12/02/2019 Asthma Cancer (CMS/HCC) (HCC) Hypertension Family History Medical History Relation Name Comments Cancer Father Heart disease Father Cancer Mother lung cancer Sister Anesthesia problems Neg Hx Relation Name Status Comments Father Alive CAD S/p coronar y stent at age 65 y/o Mother Alive Sister Social History Tobacco Use Types Packs/Day Years [...] on file Legal Sex Male 1:17 AM STEEL SPAR OPERATOR Gender Identity Not on file Sexual Orientation Straight 09/22/2019 8: 21 PM CDT 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 on file Not on file Obstetrics History Last Filed Vital Signs Vital Sign Reading Time Taken Comments Blood Pressure 132/77 02/18/2024 9:58 AM STEEL SPAR OPERATOR Pulse 101 02/18/2024 9:58 AM STEEL SPAR OPERATOR Temperature 36.4 ??C (97.6 ??F) 02/18/2024 9:58 AM CS T Respiratory Rate 19 02/18/2024 9:58 AM STEEL SPAR OPERATOR Oxygen Saturation 99% 02/18/2024 9:58 AM STEEL SPAR OPERATOR Inhaled Oxygen Concentration - - Weight 153 kg (337 lb 6.4 oz) 02/18/2024 9:58 AM STEEL SPAR OPERATOR Height 190.5 cm (6' 3 ) 02/16/2024 4:53 PM STEEL SPAR OPERATOR Body Mass Index 42.17 02/16/2024 4:53 PM STEEL SPAR OPERATOR Plan of Treatment Health Maintenance Due Date Last Done Comments Colon Cancer Screening-Colonoscopy 1967 Depression Screening 1967 Hepatitis C Screening 1967 Hepatitis B Screening 1985 Regular Well Visit/Exam 18-64 1985 Prostate Cancer Screening-PSA 05/10/2021 05/10/2019 Covid-19 Vaccine ( season) 2023 07/07/2021, 06/18/2020, 05/27/2020 Influenza Vaccine (#1) 2023 , 12/09/2021, 03/28/2020 DTaP/Tdap/Td Vaccine (2 - Td or Tdap) 01/28/2029 Zoster Vaccine Completed 02/22/2022, 07/07/2021 Pneumococcal vaccine <65 Completed 12/23/2022, 08/14 Procedures Procedure Name Priority Date/Time Associated Diagnosis Comments EGFR STAT 02/25/2024 2:21 PM STEEL SPAR OPERATOR Neuroendocrine carcinoma of lung (HCC) DIFFERENTIAL AUTO STAT 02/25/2024 2:2 1 PM STEEL SPAR OPERATOR Neuroendocrine carcinoma of lung (HCC) COMPREHENSIVE METABOLIC PANEL STAT 02/25/2024 2:21 PM STEEL SPAR OPERATOR Neuroendocrine carcinoma of lung (HCC) CBC WITH AUTO DIFFERENTIAL STAT 02/25/2024 2:21 PM STEEL SPAR OPERATOR Neuroendocrine carcinoma of lung (HCC) EGFR Routine 02/18/2024 9:52 AM STEEL SPAR OPERATOR 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) DIFFERENTIAL AUTO Routine 02/18/2024 9:5 2 AM STEEL SPAR OPERATOR 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) CBC WITH AUTO DIFFERENTIAL Routine 02/18/2024 9:52 AM STEEL SPAR OPERATOR 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) COMPREHENSIVE METABOLIC PANEL Routine 02/18/2024 9:52 AM STEEL SPAR OPERATOR 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) CT CHEST ABDOMEN PELVIS W CONTRAST Schedule Routine, Read Routine (OP Routine) 02/16/2024 6:28 PM STEEL SPAR OPERATOR 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) MRI BRAIN W WO CONTRAST Schedule Routine, Read Routine (OP Routine) 02/16/2024 5:42 PM STEEL SPAR OPERATOR 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) DIFFERENTIAL AUTO Routine 01/21/2024 8:5 9 AM STEEL SPAR OPERATOR 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) CBC WITH AUTO DIFFERENTIAL Routine 01/21/2024 8:59 AM STEEL SPAR OPERATOR 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 73 m2 Comment: [...] was last reviewed 2021. Testing performed by: [address] [address] Blood 02/25/2024 2:21 PM STEEL SPAR OPERATOR 02/25/2024 2:35 PM STEEL SPAR OPERATOR us Kip Del Rio MD LAB BLOOD ORDERABLES Final Result [facility] Department [place] [address] * (ABNORMAL) Differential, auto (02/25/2024 2:21 PM STEEL SPAR OPERATOR) Neutrophil abs 5.1 1.5 - 6.5 K/cumm Comment:Testing performed by : [address] [address] Imm gran abs 0.0 0.0 - 0.1 K/cumm SEJAL Comment:Testing performed by : [address] [address] Lymphocyte abs 1.1 0.8 - 3.3 K/cumm SEJAL Comment:Testing performed by : [address] [address] Monocyte abs 1.0(H) 0.2 - 0.8 K/cumm SEJAL Comment:Testing performed by : [address] [address] Eosinophil abs 0.3 0.0 - 0.5 K/cumm SEJAL Comment:Testing performed by : [address] [address] Basophil abs 0.0 0.0 - 0.1 K/cumm SEJ[facility] Comment:Testing performed by : [address] [address] Neutrophil pct 67.4 % [facility] Comment: Interpretive Data Percent cell count reference ranges are not reported, since discordance with absolute values may lead to misinterpretation of CBC data. Current Interpretive Data was last revised on 2017. Testing performed by: [address] [address] Imm gran pct 0.4 % [facility] Comment: Interpretive Data Percent cell count reference ranges are not reported, since discordance with absolute values may lead to misinterpretation of CBC data. Current Interpretive Data was last revised on 2017. Testing performed by: [address] [address] Lymphocyte pct 15.0 % [facility] Comment: Interpretive Data Percent cell count reference ranges are not reported, since discordance with absolute values may lead to misinterpretation of CBC data. Current Interpretive Data was last revised on 2017. Testing performed by: [address] [address] Monocyte pct 13.4 % [facility] Comment: Interpretive Data Percent cell count reference ranges are not reported, since discordance with absolute values may lead to misinterpretation of CBC data. Current Interpretive Data was last revised on 2017. Testing performed by: [address] [address] Eosinophil pct 3.5 % [facility] Comment: Interpretive Data Percent cell count reference ranges are not reported, since discordance with absolute values may lead to misinterpretation of CBC data. Current Interpretive Data was last revised on 2017. Testing performed by: [address] [address] Basophil pct 0.3 % [facility] Comment: Interpretive Data Percent cell count reference ranges are not reported, since discordance with absolute values may lead to misinterpretation of CBC data. Current Interpretive Data was last revised on 2017. Testing performed by: [address] [address] Blood 02/25/2024 2:21 PM STEEL SPAR OPERATOR 02/25/2024 2:35 PM STEEL SPAR OPERATOR us Kip Govindan MD LAB BLOOD ORDERABLES Final Result [facility] [address] [facility] Department [place] [address] * (ABNORMAL) CBC with auto differential (02/25/2024 2:21 PM STEEL SPAR OPERATOR) [facility] Signature WBC 7.5 3.8 - 9.9 K/cumm Comment:Testing performed by : [address] [address] Hgb 13.9 13.0 - 17.5 g/dL SEJ[facility] Comment:Testing performed by : [address] [address] Hct 41.3 38.9 - 50.3 % SE[facility] Comment:Testing performed by : [address] [address] Plt 144(L) 150 - 400 K/cumm SEJ[facility] Comment:Testing performed by : [address] [address] MPV 11.5 9.1 - 12.3 fL SE[facility] Comment:Testing performed by : [address] [address] RBC 4.31 4.30 - 5.80 M/cumm SE[facility] Comment:Testing performed by : [address] [address] MCV 95.8 81.3 - 96.4 fL [facility] Comment:Testing performed by : [address] [address] MCH 32.3 27.1 - 33.3 pg SEJAL Comment:Testing performed by : [address] [address] MCHC 33.7 32.3 - 35.7 g/dL SE[facility] PAEZ Comment:Testing performed by : [address] [address] RDW CV 15.1(H) 11.1 - 14.9 % SEJAL Comment:Testing performed by : [address], [address] RDW SD 54.1(H) 35.7 - 48.1 fL [facility] Comment:Testing performed by : [address] [address] NRBC abs 0.00 0.00 - 0.01 K/cumm SE[facility] PAEZ Comment:Testing performed by : [address] [address] Blood 02/25/2024 2:21 PM STEEL SPAR OPERATOR 02/25/2024 2:35 PM STEEL SPAR OPERATOR us Kip Del Rio MD LAB BLOOD ORDERABLES Final Result [facility] [address] [facility] Department [place] [address] * (ABNORMAL) Comprehensive metabolic panel (02/25/2024 2:21 PM STEEL SPAR OPERATOR) Sodium 138 135 - 145 mmol/L Comment:Testing performed by : [address] [address] Potassium, pl 4.1 3.3 - 4.9 mmol/L SE[facility] Comment:Testing performed by : [address] [address] Chloride 101 97 - 110 mmol/L SEJ[facility] Comment:Testing performed by : [address] [address] CO2 28 22 - 32 mmol/L SEJ[facility] Comment:Testing performed by : [address] [address] Anion gap 9 2 - 15 mmol/L SE[facility] Comment:Testing performed by : [address] [address] BUN 14 6 - 25 mg/dL SEJAL Comment:Testing performed by : [address] [address] Creatinine 0.70(L) 0.80 - 1.30 mg/dL SEJ[facility] Comment:Testing performed by : [address] [address] Glucose 98 70 - 199 mg/dL SEJAL [...] was last revised 2022. Testing performed by: [address] [address] Calcium 9.9 8.5 - 10.3 mg/dL SEJ[facility] Comment:Testing performed by : [address] [address] Bilirubin, total 0.3 0.1 - 1.2 mg/dL SE[facility] Comment:Testing performed by : [address] [address] Protein, pl 7.6 6.5 - 8.5 g/dL SE[facility] Comment:Testing performed by : [address] [address] Albumin 4.4 3.5 - 5.0 g/dL SEJAL Comment:Testing performed by : [address] [address] Alk phos 94 40 - 130 Units/L SEJAL Comment:Testing performed by : [address] [address] ALT 18 7 - 55 Units/L SEJ[facility] Comment:Testing performed by : [address] [address] AST 21 10 - 50 Units/L SEJ[facility] Comment:Testing performed by : [address] [address] Blood 02/25/2024 2:21 PM STEEL SPAR OPERATOR 02/25/2024 2:35 PM STEEL SPAR OPERATOR Kip Del Rio MD LAB BLOOD ORDERABLES Final Result [facility] [address] [facility] Department [place] [address] * eGFR (02/18/2024 9:52 AM STEEL SPAR OPERATOR) eGFR >90 >=60 mL/min/1. 73 m2 Comment: [...] last reviewed 2021. Blood 02/18/2024 9:52 AM STEEL SPAR OPERATOR 02/18/2024 9:57 AM STEEL SPAR OPERATOR us Kip Del Rio MD LAB BLOOD ORDERABLES Final Result [facility] Department [place] [address] * (ABNORMAL) Differential, auto (02/18/2024 9:52 AM STEEL SPAR OPERATOR) Neutrophil abs 9.7(H) 1.5 - 6.5 K/cumm Comment:Testing performed by : [facility], [address] [place] [phone] Lymphocyte abs 0.6(L) 0.8 - 3.3 K/cumm [facility] Comment:Testing performed by : [facility], [address] [place] [phone] Monocyte abs 1.2(H) 0.2 - 0.8 K/cumm [facility] Comment:Testing performed by : [facility], [address] [place] [address] Eosinophil abs 0.3 0.0 - 0.5 K/cumm [facility] Comment:Testing performed by : [facility], [address] [place], [place] [id number] Basophil abs 0.1 0.0 - 0.1 K/cumm [facility] Comment:Testing performed by : [facility], [address] [place] [address] Neutrophil pct 81.9 % [facility] Comment: Interpretive Data Percent cell count reference ranges are not reported, since discordance with absolute values may lead to misinterpretation of CBC data. Current Interpretive Data was last revised on 2017. Testing performed by: [facility], [address] [place] [phone] Lymphocyte pct 5.0 % [facility] Comment: Interpretive Data Percent cell count reference ranges are not reported, since discordance with absolute values may lead to misinterpretation of CBC data. Current Interpretive Data was last revised on 2017. Testing performed by: [facility], [address] [place] [phone] Monocyte pct 10.3 % [facility] Comment: Interpretive Data Percent cell count reference ranges are not reported, since discordance with absolute values may lead to misinterpretation of CBC data. Current Interpretive Data was last revised on 2017. Testing performed by: [facility], [address] [place] [phone] Eosinophil pct 2.3 % [facility] Comment: Interpretive Data Percent cell count reference ranges are not reported, since discordance with absolute values may lead to misinterpretation of CBC data. Current Interpretive Data was last revised on 2017. Testing performed by: [facility], [address] [place] [phone] Basophil pct 0.5 % SE[facility]AL [facility] Comment: Interpretive Data Percent cell count reference ranges are not reported, since discordance with absolute values may lead to misinterpretation of CBC data. Current Interpretive Data was last revised on 2017. Testing performed by: [facility], [address] [place] [address] Blood 02/18/2024 9:52 AM STEEL SPAR OPERATOR 02/18/2024 9:54 AM STEEL SPAR OPERATOR us Kip Del Rio MD LAB BLOOD ORDERABLES Final Result SEJAL HEARN [facility] [place] [address] * (ABNORMAL) CBC with auto differential (02/18/2024 9:52 AM STEEL SPAR OPERATOR) WBC 11.8(H) 3.8 - 9.9 K/cumm Comment:Testing performed by : [facility], [address] [place] [address] Hgb 14.1 13.0 - 17.5 g/dL SEJAL HEARN Comment:Testing performed by : [facility], [address] [place] [address] Hct 42.4 38.9 - 50.3 % SEJAL HEARN Comment:Testing performed by : [facility], [address] [place] [address] Plt 213 150 - 400 K/cumm SEJAL HEANR Comment:Testing performed by : [facility], [address] [place] [address] MPV 9.6 6.8 - 10.4 fL SEJAL HEARN Comment:Testing performed by : [facility], [address] [place] [address] RBC 4.39 4.30 - 5.80 M/cumm SEJAL [facility] Comment:Testing performed by : [facility], [address] [place], [place] [phone] MCV 96.4 81.3 - 96.4 fL SEJAL HEARN Comment:Testing performed by : [facility], [address] [place], [place] [phone] MCH 32.0 27.1 - 33.3 pg SEJAL HEARN Comment:Testing performed by : [facility], [address] [place] [address] MCHC 33.2 32.3 - 35.7 g/dL SEJAL HEARN Comment:Testing performed by : [facility], [address] [place] [address] RDW CV 16.8(H) 11.1 - 14.9 % SEJAL [facility] Comment:Testing performed by : [facility], [address] [place] [address] NRBC abs 0.00 0.00 - 0.01 K/cumm SEJAL [facility] Comment:Testing performed by : [facility], [address] [place] [address] Blood 02/18/2024 9:52 AM STEEL SPAR OPERATOR 02/18/2024 9:54 AM STEEL SPAR OPERATOR us Kip Del Rio MD LAB BLOOD ORDERABLES Final Result [facility] Department [place] [address] * Comprehensive metabolic panel (02/18/2024 9:52 AM STEEL SPAR OPERATOR) Sodium 144 135 - 145 mmol/L Potassium, pl 4.7 3.3 - 4.9 mmol/L [facility] Chloride 107 97 - 110 mmol/L [facility] CO2 32 22 - 32 mmol/L [facility] Anion gap 5 2 - 15 mmol/L [facility] BUN 15 6 - 25 mg/dL [facility] Creatinine 0.81 0.80 - 1.30 mg/dL [facility] Glucose 110 70 - 199 mg/dL [facility] Comment: Interpretive Data Fasting glucose [...] 2022. Calcium 9.8 8.5 - 10.3 mg/dL [facility] Bilirubin, total 0.2 0.1 - 1.2 mg/dL [facility] Protein, pl 8.0 6.5 - 8.5 g/dL [facility] Albumin 4.5 3.5 - 5.0 g/dL [facility] Alk phos 112 40 - 130 Units/L [facility] ALT 22 7 - 55 Units/L [facility] AST 25 10 - 50 Units/L [facility] Blood 02/18/2024 9:52 AM STEEL SPAR OPERATOR 02/18/2024 9:57 AM STEEL SPAR OPERATOR us iKp Del Rio MD LAB BLOOD ORDERABLES Final Result [facility] [place] [address] * CT Chest Abdomen Pelvis W Contrast (02/16/2024 6:28 PM STEEL SPAR OPERATOR) Anatomical Region Laterality Modality Body N/A Computed Tomogra phy 02/17/2024 9:44 AM STEEL SPAR OPERATOR Impressions 02/17/2024 12:53 PM STEEL SPAR OPERATOR 1. ??No significant change in posttreatment changes [...] it. Electronically signed by: Vikki Way M.D. Narrative 02/17/2024 12:53 PM STEEL SPAR OPERATOR EXAMINATION: ??Computed tomography of the chest, abdomen [...] Brain W WO Contrast (02/16/2024 5:42 PM STEEL SPAR OPERATOR) Anatomical Region Laterality Modality Head and Neck N/A Magnetic Resonan ce 02/17/2024 8:38 AM STEEL SPAR OPERATOR Impressions 02/17/2024 4:37 PM STEEL SPAR OPERATOR No evidence of intracranial metastatic disease. Dictated by: Shannon Turner MD The radiology attending physician has personally reviewed this study, and had reviewed and/or edited this written report and agrees with it. Electronically signed by: Gabbi Zimmer MD Narrative 02/17/2024 4:37 PM STEEL SPAR OPERATOR EXAMINATION: Magnetic resonance imaging (MRI) of the [...] * (ABNORMAL) Differential, auto (01/21/2024 8:59 AM STEEL SPAR OPERATOR) Neutrophil abs 6.3 1.5 - 6.5 K/cumm Comment:Testing performed by : [facility], [address] [place] [phone] Lymphocyte abs 1.0 0.8 - 3.3 K/cumm CERNER BJ Comment:Testing performed by : [facility], [address] [place] [phone] Monocyte abs 1.2(H) 0.2 - 0.8 K/cumm CERNER BJ Comment:Testing performed by : [facility], [address] [place] [phone] Eosinophil abs 0.1 0.0 - 0.5 K/cumm CERNER [facility] Comment:Testing performed by : [facility], [address] [place] [phone] Basophil abs 0.1 0.0 - 0.1 K/cumm C[facility]ER [facility] Comment:Testing performed by : [facility], [address] [place] [phone] Neutrophil pct 72.4 % C[facility] Comment: Interpretive Data Percent cell count reference ranges are not reported, since discordance with absolute values may lead to misinterpretation of CBC data. Current Interpretive Data was last revised on 2017. Testing performed by: [facility], [address] [place], [place] [id number] Lymphocyte pct 11.6 % C[facility]ER [facility] Comment: Interpretive Data Percent cell count reference ranges are not reported, since discordance with absolute values may lead to misinterpretation of CBC data. Current Interpretive Data was last revised on 2017. Testing performed by: [facility], [address] [place], [place] [id number] Monocyte pct 13.6 % [facility] Comment: Interpretive Data Percent cell count reference ranges are not reported, since discordance with absolute values may lead to misinterpretation of CBC data. Current Interpretive Data was last revised on 2017. Testing performed by: [facility], [address] [place] [phone] Eosinophil pct 1.7 % [facility] Comment: Interpretive Data Percent cell count reference ranges are not reported, since discordance with absolute values may lead to misinterpretation of CBC data. Current Interpretive Data was last revised on 2017. Testing performed by: [facility], [address] [place] [phone] Basophil pct 0.7 % [facility] Comment: Interpretive Data Percent cell count reference ranges are not reported, since discordance with absolute values may lead to misinterpretation of CBC data. Current Interpretive Data was last revised on 2017. Testing performed by: [facility], [address] [place] [phone] Blood 01/21/2024 8:59 AM STEEL SPAR OPERATOR 01/21/2024 9:01 AM STEEL SPAR OPERATOR us Kip Del Rio MD LAB BLOOD ORDERABLES Final Result SEJAL HEARN [facility] Department of Laboratories [place] [id number] * (ABNORMAL) CBC with auto differential (01/21/2024 8:59 AM STEEL SPAR OPERATOR) WBC 8.6 3.8 - 9.9 K/cumm Comment:Testing performed by : [facility], [address] [place] [address] Hgb 14.7 13.0 - 17.5 g/dL SEJAL HEARN Comment:Testing performed by : [facility], [address] [place] [address] Hct 43.9 38.9 - 50.3 % SEJAL HEARN Comment:Testing performed by : [facility], [address] [place] [address] Plt 210 150 - 400 K/cumm SEJAL HEARN Comment:Testing performed by : [facility], [address] [place] [address] MPV 9.7 6.8 - 10.4 fL SEJAL HEARN Comment:Testing performed by : [facility], [address] [place] [address] RBC 4.66 4.30 - 5.80 M/cumm SEJAL HEARN Comment:Testing performed by : [facility], [address] [place] [address] MCV 94.3 81.3 - 96.4 fL SEJAL HEARN Comment:Testing performed by : [facility], [address] [place] [address] MCH 31.6 27.1 - 33.3 pg CERRAFAELA HEARN Comment:Testing performed by : [facility], [address] [place] [address] MCHC 33.6 32.3 - 35.7 g/dL SEJAL HEARN Comment:Testing performed by : [facility], [address] [place] [phone] RDW CV 17.7(H) 11.1 - 14.9 % SEJAL HEARN Comment:Testing performed by : [facility], [address] [place] [phone] NRBC abs 0.00 0.00 - 0.01 K/cumm SEJAL HEARN Comment:Testing performed by : [facility], [address] [place] [phone] Blood 01/21/2024 8:59 AM STEEL SPAR OPERATOR 01/21/2024 9:01 AM STEEL SPAR OPERATOR Kip Del Rio MD LAB BLOOD ORDERABLES Final Result Performing Organization Address City/State/[facility] Co de Phone Number [facility] [place] [address] * eGFR (01/21/2024 8:57 AM STEEL SPAR OPERATOR) eGFR >90 >=60 mL/min/1. 73 m2 Comment: [...] last reviewed 2021. Blood 01/21/2024 8:57 AM STEEL SPAR OPERATOR 01/21/2024 9:05 AM STEEL SPAR OPERATOR us Kip Del Rio MD LAB BLOOD ORDERABLES Final Result [facility] [place] [address] * (ABNORMAL) Comprehensive metabolic panel (01/21/2024 8:57 AM STEEL SPAR OPERATOR) Sodium 140 135 - 145 mmol/L Potassium, pl 4.7 3.3 - 4.9 mmol/L [facility] Chloride 101 97 - 110 mmol/L [facility] CO2 32 22 - 32 mmol/L [facility] Anion gap 7 2 - 15 mmol/L [facility] BUN 17 6 - 25 mg/dL [facility] Creatinine 0.73(L) 0.80 - 1.30 mg/dL [facility] Glucose 103 70 - 199 mg/dL [facility] Comment: Interpretive Data Fasting glucose [...] Calcium 10.5(H) 8.5 - 10.3 mg/dL [facility] Bilirubin, total 0.4 0.1 - 1.2 mg/dL [facility] Protein, pl 8.5 6.5 - 8.5 g/dL [facility] Albumin 4.6 3.5 - 5.0 g/dL [facility] Alk phos 93 40 - 130 Units/L [facility] ALT 21 7 - 55 Units/L [facility] AST 23 10 - 50 Units/L [facility] Blood 01/21/2024 8:57 AM STEEL SPAR OPERATOR 01/21/2024 9:05 AM STEEL SPAR OPERATOR us Kip Del Rio MD LAB BLOOD ORDERABLES Final Result [facility] Department [place] [address] * eGFR (12/24/2023 12:27 PM CDT) eGFR [...] MD LAB BLOOD ORDERABLES Final Result [facility] Department [place] [address] * Comprehensive metabolic panel (12/24/2023 12:27 PM CDT) Sodium 140 135 - 145 mmol/L Potassium, pl 4.2 3.3 - 4.9 mmol/L [facility] Chloride 102 97 - 110 mmol/L [facility] CO2 32 22 - 32 mmol/L [facility] Anion gap 6 2 - 15 mmol/L [facility] BUN 16 6 - 25 mg/dL [facility] Creatinine 0.87 0.80 - 1.30 mg/dL [facility] Glucose 98 70 - 199 mg/dL [facility] Comment: Interpretive Data Fasting glucose [...] 2022. Calcium 10.1 8.5 - 10.3 mg/dL [facility] Bilirubin, total 0.4 0.1 - 1.2 mg/dL [facility] Protein, pl 7.8 6.5 - 8.5 g/dL [facility] Albumin 4.4 3.5 - 5.0 g/dL [facility] Alk phos 83 40 - 130 Units/L [facility] ALT 15 7 - 55 Units/L [facility] AST 21 10 - 50 Units/L [facility] Blood 12/24/2023 12:2 7 PM CDT 12/24/2023 12:34 PM CDT us Kip Del Rio MD LAB BLOOD ORDERABLES Final Result SEJAL [facility] Department [place] [address] * (ABNORMAL) Differential, auto (12/24/2023 12:23 PM CDT) Neutrophil abs 5.0 1.5 - 6.5 K/cumm Comment:Testing performed by : [facility], [address] [place] [phone] Lymphocyte abs 1.4 0.8 - 3.3 K/cumm CERNER DHIRAJ Comment:Testing performed by : [facility], [address] [place] [phone] Monocyte abs 1.1(H) 0.2 - 0.8 K/cumm CERNER BJ Comment:Testing performed by : [facility], [address] [place] [phone] Eosinophil abs 0.2 0.0 - 0.5 K/cumm CERNER BJ Comment:Testing performed by : [facility], [address] [place] [phone] Basophil abs 0.1 0.0 - 0.1 K/cumm CERNER BJ Comment:Testing performed by : [facility], [address] [place] [phone] Neutrophil pct 63.8 % CERNER BJ Comment: Interpretive Data Percent cell count reference ranges are not reported, since discordance with absolute values may lead to misinterpretation of CBC data. Current Interpretive Data was last revised on 2017. Testing performed by: [facility], [address] [place] [phone] Lymphocyte pct 18.3 % CERNER BJ Comment: Interpretive Data Percent cell count reference ranges are not reported, since discordance with absolute values may lead to misinterpretation of CBC data. Current Interpretive Data was last revised on 2017. Testing performed by: [facility], [address] [place] [phone] Monocyte pct 14.3 % SEJAL HEARN Comment: Interpretive Data Percent cell count reference ranges are not reported, since discordance with absolute values may lead to misinterpretation of CBC data. Current Interpretive Data was last revised on 2017. Testing performed by: [facility], [address] [place] [phone] Eosinophil pct 2.7 % SEJAL HEARN Comment: Interpretive Data Percent cell count reference ranges are not reported, since discordance with absolute values may lead to misinterpretation of CBC data. Current Interpretive Data was last revised on 2017. Testing performed by: [facility], [address] [place] [phone] Basophil pct 0.9 % SEJAL HEARN Comment: Interpretive Data Percent cell count reference ranges are not reported, since discordance with absolute values may lead to misinterpretation of CBC data. Current Interpretive Data was last revised on 2017. Testing performed by: [facility], [address] [place] [address] Blood 12/24/2023 12:2 3 PM CDT 12/24/2023 12:31 PM CDT us Kip Del Rio MD LAB BLOOD ORDERABLES Final Result [facility] [place] [address] * (ABNORMAL) CBC with auto differential (12/24/2023 12:23 PM CDT) WBC 7.8 3.8 - 9.9 K/cumm Comment:Testing performed by : [facility], [address] [place] [phone] Hgb 14.0 13.0 - 17.5 g/dL SEJAL HEARN Comment:Testing performed by : [facility], [address] [place] [address] Hct 42.5 38.9 - 50.3 % SEJAL HEARN Comment:Testing performed by : [facility], [address] [place] [address] Plt 198 150 - 400 K/cumm SEJAL HEARN Comment:Testing performed by : [facility], [address] [place] [address] MPV 9.7 6.8 - 10.4 fL SEJAL HEARN Comment:Testing performed by : [facility], [address] [place] [address] RBC 4.57 4.30 - 5.80 M/cumm CERRAFAELA BJ Comment:Testing performed by : [facility], [address] [place] [address] MCV 93.1 81.3 - 96.4 fL SEJAL HEARN Comment:Testing performed by : [facility], [address] [place] [address] MCH 30.7 27.1 - 33.3 pg SEJAL HEARN Comment:Testing performed by : [facility], [address] [place] [address] MCHC 33.0 32.3 - 35.7 g/dL CERRAFAELA HEARN Comment:Testing performed by : [facility], [address] [place] [address] RDW CV 17.3(H) 11.1 - 14.9 % SEJAL HEARN Comment:Testing performed by : [facility], [address] [place] [address] NRBC abs 0.00 0.00 - 0.01 K/cumm SEJAL HEARN Comment:Testing performed by : [facility], [address] [place] [address] Blood 12/24/2023 12:2 3 PM CDT 12/24/2023 12:31 PM CDT us Kip Del Rio MD LAB BLOOD ORDERABLES Final Result SEJAL HEARN [facility] Department of Laboratories [place] [id number] * CT Chest Abdomen Pelvis W Contrast [...] * POCT creatinine (12/22/2023 11:17 AM CDT) Creatinine POC 0.9 0.7 - 1.3 mg/dL Blood 12/22/2023 11:1 7 AM CDT 12/22/2023 11:17 AM CDT Jacob Flynn MD LAB POCT ORDERABLES - DEVICE Final Result [facility] [place] [address] * PSA, total and free (05/10/2019 12:35 PM STEEL SPAR OPERATOR) Free PSA Screen 0.4 ng/mL [facility] PROSTATE SPECIFIC AG, TOTAL 1.9 0.0 - 4.0 ng/mL [facility] Comment: INTERPRETIVE INFORMATION: Prostate Specific Antigen The [...] PROSTATE SPECIFIC AG, % FREE 21 % [facility] Comment: INTERPRETIVE INFORMATION: Prostate Specific Antigen, Free Percentage [facility] uses the [employer] Free PSA electrochemiluminescent immunoassay [...] prostate cancer in individual patients. Performed by [facility], [address] [place] [address] [email or web address], Carlyle Stewart MD, Lab. Director Blood specimen (specimen) 05/10/2019 12:35 PM STEEL SPAR OPERATOR 05/10/2019 1:05 PM STEEL SPAR OPERATOR Narrative Resulting Agency Comment CLI us Alexis Lopez MD LAB BLOOD ORDERABLES Marianne conde Result [email or web address] [address] [place] [address], [facility] [phone] from Last 3 Months or Most Recently Relevant to Health Maintenance Insurance [facility] CHOICE [employer]US [employer] CLAIMS [employer] CLAIMS Advance Directives For more information, please contact: [phone] * Full Code (Latest Code Status on File) Date Activated Date Inactivated Comments 10/16/2023 7:50 AM 10/17/2023 4:55 AM * Full Code Date Activated Date Inactivated Comments 05/26/2019 9:27 PM 05/30/2019 9:19 PM Care Teams Consumer Affairs Director Relationship Specialty Start Date End Date Clara Stanley PA [address] [place] [address] PCP - General Nurse Practitioner 04/05/19 Jasper Canchola MD [address] [place] [address] Surgeon Thoracic Surgery 05/11/19 Alexis Lopez MD [address] [address] Insurance Sales Professional Pulmonary Disease 05/11/19 Kip Del Rio MD [address] [place] [address] Medical Oncologist/[employer] Founder Hematology and Oncology 05/11/19 Jacob Flynn MD [address] [place] [address] Radiation Oncologist Radiation Oncology 05/25/19 Renetta Ballesteros NP [address] [place] [address] Nurse Practitioner Radiation Oncology 06/11/22
--- OUTSIDE RECORDS SUMMARY | 2024-03-02 03:41 | XMS_ITS | Encounter Summary ---
Author Organization [facility] Address [address] [place] [address] Phone Care Team Providers Care Supervisor [employer] Name Role Phone Clara Stanley Primary Care Provider + Jasper Canchola MD Unavailable Alexis Lopez MD Unavailable Kip Del Rio MD Unavailable Jacob Flynn MD Unavailable Renetta Ballesteros NP Unavailable [phone] Encounter Details Date Type Department Care Team (Late st Contact Info) Description 12/03/2023 Orders Only [facility] [address] 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 on file Not on file documented as of this encounter Plan of Treatment Not on file documented as of this encounter Visit Diagnoses Not on filedocumented in this encounter Care Teams Supervisor [employer] Relationship Specialty Start Date End Date Clara Stanley PA [address] [place] [id number] PCP - General Nurse Practitioner 04/05/19 Jasper Canchola MD [address] [place] [address] Surgeon Thoracic Surgery 05/11/19 Alexis Lopez MD [address] [address] Health Promotion Coordinator Pulmonary Disease 05/11/19 Kip Del Rio MD [address] [facility] [address] [address] [place] [address] Medical Oncologist/Refrigerating Engineer Hematology and Oncology 05/11/19 Jacob Flynn MD [address] [place] [address] Radiation Oncologist Radiation Oncology 05/25/19 Renetta Ballesteros NP [address] [facility] [address] [place] [address] Nurse Practitioner Radiation Oncology 06/11/22 documented as of this encounter
--- OUTSIDE RECORDS SUMMARY | 2024-03-02 03:41 | XMS_ITS | Encounter Summary ---
Author Organization [facility] Address [address] [place] [address] Phone Care Team Providers Care Rock Drill Operator Name Role Phone Clara Stanley Primary Care Provider + Jasper Canchola MD Unavailable Alexis Lopez MD Unavailable [phone] Kip Del Rio MD Unavailable Jacob Flynn MD Unavailable Renetta Ballesteros NP Unavailable [phone] Encounter Details Date Type Department Care Team (Late st Contact Info) Description 12/03/2023 Orders Only [facility] Oncology [address] [facility] Advanced Medicine 7th [place] [address] [place] [phone] Naomi Bains, [facility] Social History Tobacco Use Types Packs/Day Years [...] on file 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 Gender Identity Not on file Sexual Orientation Straight 09/22/2019 8: 21 PM CDT 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 on file Not on file documented as of this encounter Plan of Treatment Not on file documented as of this encounter Visit Diagnoses Not on filedocumented in this encounter Care Teams Rock Drill Operator Relationship Specialty Start Date End Date Clara Stanley PA [address] [place] [address] PCP - General Nurse Practitioner 04/05/19 Jasper Canchola MD [address] [place] [address] Surgeon Thoracic Surgery 05/11/19 Alexis Lopez MD [address] [address] Technical Sales Consultant Pulmonary Disease 05/11/19 Kip Del Rio MD [address] [place] [address] Medical Oncologist/Record Press Tender Hematology and Oncology 05/11/19 Jacob Flynn MD [address] [place] [address] Radiation Oncologist Radiation Oncology 05/25/19 Renetta Ballesteros NP [address] [place] [address] Nurse Practitioner Radiation Oncology 06/11/22 documented as of this encounter
--- OUTSIDE RECORDS SUMMARY | 2024-03-02 03:41 | XMS_ITS | Encounter Summary ---
Author Organization [facility] Healthcare Address [address] [place] [address] Care Team Providers Care Urgent Care Nurse Practitioner Name Role Phone Clara Stanley Primary Care Provider + Jasper Canchola MD Unavailable Alexis Lopez MD Unavailable Kip Del Rio MD Unavailable Jacob Flynn MD Unavailable Renetta Ballesteros NP Unavailable Encounter Details Date Type Department Care Team (Late st Contact Info) Description 10/22/2023 Telephone [facility] [address] [facility] Advanced Medicine 7th [place] [address] Ling Juan, school psychologist assistant Social History Tobacco Use Types Packs/Day Years [...] on file 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 He has been given the name, phone number and instructed that they will not ship this medication until they talk to you. He understood. Message was sent to the team as to where to send it, based on the new insurance. [employer] uses [facility] Specialty [phone] documented in this encounter Plan of Treatment Not on file documented as of this encounter Visit Diagnoses Not on filedocumented in this encounter Care Teams Urgent Care Nurse Practitioner Relationship Specialty Start Date End Date Clara Stanley PA [address] [place] [address] PCP - General Nurse Practitioner 04/05/19 Jasper Canchola MD [address] [place] [address] Surgeon Thoracic Surgery 05/11/19 Alexis Lopez MD [address] [facility] [address] [place] [address] [place] [address] Oil Distributor Pulmonary Disease 05/11/19 Kip Del Rio MD [address] [facility] [address] [place] [address] Medical Oncologist/Cloth Pattern Maker Hematology and Oncology 05/11/19 Jacob Flynn MD [address] [facility] [address] [place] [address] Radiation Oncologist Radiation Oncology 05/25/19 Renetta Ballesteros NP [address] [facility] [address] [place] [address] Nurse Practitioner Radiation Oncology 06/11/22 documented as of this encounter
--- OUTSIDE RECORDS SUMMARY | 2024-03-02 03:41 | XMS_ITS | Encounter Summary ---
Author Organization [facility] Healthcare Address [address] [place] [address] Care Team Providers Care Bacon Slicer Name Role Phone Clara Stanley Primary Care Provider + Jasper Canchola MD Unavailable Alexis Lopez MD Unavailable Kip Del Rio MD Unavailable Jacob Flynn MD Unavailable Renetta Ballesteros NP Unavailable Encounter Details Date Type Department Care Team (Late st Contact Info) Description 10/22/2023 2:15 PM CDT Lab [facility] [address] 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 on file Not on file documented as of this encounter Plan of Treatment Not on file documented as of this encounter Procedures Procedure Name Priority Date/Time Associated Diagnosis Comments EGFR Routine 10/22/2023 2:20 PM CDT 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) DIFFERENTIAL AUTO Routine 10/22/2023 2:2 0 PM CDT 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) CBC WITH AUTO DIFFERENTIAL Routine 10/22/2023 2:20 PM CDT 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) COMPREHENSIVE METABOLIC PANEL Routine 10/22/2023 2:20 PM CDT 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) documented in this encounter Results * eGFR (10/22/2023 2:20 PM CDT) eGFR >90 >=60 mL/min/1. 73 [...] was last reviewed 2021. Testing performed by: [facility], [address] [place] [phone] Blood 10/22/2023 2:20 PM CDT 10/22/2023 2:23 PM CDT Kip Del Rio MD LAB BLOOD ORDERABLES Final Result [facility] Department [place] [address] * (ABNORMAL) Differential, auto (10/22/2023 2:20 PM CDT) Neutrophil abs 8.8(H) 1.5 - 6.6 K/cumm Comment:Testing performed by : [facility], [address] [place] [phone] Lymphocyte abs 1.7 1.2 - 3.3 K/cumm [facility] Comment:Testing performed by : [facility], [address] [place] [phone] Monocyte abs 1.2 0.2 - 1.2 K/cumm [facility] Comment:Testing performed by : [facility], [address] [place] [phone] Eosinophil abs 0.3 0.0 - 0.5 K/cumm [facility] Comment:Testing performed by : [facility], [address] [place] [phone] Basophil abs 0.1 0.0 - 0.2 K/cumm CERRAFAELA BJ Comment:Testing performed by : [facility], [address] [place] [phone] Neutrophil pct 72.9 % CERNER BJ Comment: Interpretive Data Percent cell count reference ranges are not reported, since discordance with absolute values may lead to misinterpretation of CBC data. Current Interpretive Data was last revised on 2017. Testing performed by: [facility], [address] [place] [phone] Lymphocyte pct 14.5 % CERRAFAELA BJ Comment: Interpretive Data Percent cell count reference ranges are not reported, since discordance with absolute values may lead to misinterpretation of CBC data. Current Interpretive Data was last revised on 2017. Testing performed by: [facility], [address] [place] [phone] Monocyte pct 9.9 % [facility] Comment:Testing performed by : [facility], [address] [place] [phone] Eosinophil pct 2.1 % [facility] Comment:Testing performed by : [facility], [address] [place] [phone] Basophil pct 0.6 % [facility] Comment:Testing performed by : [facility], [address] [place] [phone] Blood 10/22/2023 2:20 PM CDT 10/22/2023 2:23 PM CDT us Kip Del Rio MD LAB BLOOD ORDERABLES Final Result [facility] [place] [address] * (ABNORMAL) CBC with auto differential (10/22/2023 2:20 PM CDT) WBC 12.0(H) 3.8 - 9.8 K/cumm Comment:Testing performed by : [address] [phone] Hgb 13.7(L) 13.8 - 17.2 g/dL CERNER BJ Comment:Testing performed by : [facility], [address] [place], [place] [phone] Hct 41.7 40.7 - 50.3 % CERNER BJ Comment:Testing performed by : [facility], [address] [place] [address] Plt 246 140 - 440 K/cumm CERRAFAELA BJ Comment:Testing performed by : [facility], [address] [place], [place] [phone] MPV 9.9 6.8 - 10.4 fL CERNER BJ Comment:Testing performed by : [place] [address] RBC 4.67 4.50 - 5.70 M/cumm CERRAFAELA BJ Comment:Testing performed by : [place] [address] MCV 89.3 80.0 - 97.6 fL CERRAFAELA BJ Comment:Testing performed by : [facility], [address] [place], [place] [phone] MCH 29.3 26.7 - 33.7 pg CERNER BJ Comment:Testing performed by : [place] [address] MCHC 32.7 32.7 - 35.5 g/dL CERNER BJ Comment:Testing performed by : [place] [phone] RDW CV 13.9 11.8 - 14.6 % CERRAFAELA BJ Comment:Testing performed by : [place] [phone] NRBC abs 0.00 0.00 - 0.01 K/cumm CERRAFAELA BJ Comment:Testing performed by : [place] [address] Blood 10/22/2023 2:20 PM CDT 10/22/2023 2:23 PM CDT us Kip Del Rio MD LAB BLOOD ORDERABLES Final Result [facility] Department [place] [address] * (ABNORMAL) Comprehensive metabolic panel (10/22/2023 2:20 PM CDT) Sodium 137 135 - 145 mmol/L Comment:Testing performed by : [facility], [address] [place] [phone] Potassium, pl 4.3 3.3 - 4.9 mmol/L SEJAL [facility] Comment:Testing performed by : [facility], [address] [place] [phone] Chloride 100 97 - 110 mmol/L CERRAFAELA HEARN Comment:Testing performed by : [facility], [address] [place] [phone] CO2 29 22 - 32 mmol/L CERRAFAELA HEARN Comment:Testing performed by : [facility], [address] [place] [phone] Anion gap 8 2 - 15 mmol/L SEJAL [facility] Comment:Testing performed by : [facility], [address] [place] [phone] BUN 20 6 - 25 mg/dL [facility]FAELA [facility] Comment:Testing performed by : [facility], [address] [place] [phone] Creatinine 0.78(L) 0.80 - 1.30 mg/dL [facility] Comment:Testing performed by : [facility], [address] [place] [phone] Glucose 96 70 - 199 mg/dL [facility] Comment: Interpretive Data Fasting glucose >/= 126 [...] was last revised 2022. Testing performed by: [facility], [address] [place] [phone] Calcium 10.0 8.5 - 10.3 mg/dL [facility]ERNER [facility] Comment:Testing performed by : [facility], [address] [place] [phone] Bilirubin, total 0.4 0.1 - 1.2 mg/dL CERNER BJ Comment:Testing performed by : [facility], [address] [place] [phone] Protein, pl 8.3 6.5 - 8.5 g/dL CERNER BJ Comment:Testing performed by : [facility], [address] [place] [phone] Albumin 4.6 3.5 - 5.0 g/dL CERNER BJ Comment:Testing performed by : [facility], [address] [place] [phone] Alk phos 99 40 - 130 Units/L [facility]ER [facility] Comment:Testing performed by : [facility], [address] [place] [phone] ALT 23 7 - 55 Units/L [facility] Comment:Testing performed by : [facility], [address] [place] [phone] AST 26 10 - 50 Units/L [facility] Comment:Testing performed by : [facility], [address] [place] [phone] Blood 10/22/2023 2:20 PM CDT 10/22/2023 2:23 PM CDT Kip Del Rio MD LAB BLOOD ORDERABLES Final Result [facility] [place] [address] documented in this encounter Visit Diagnoses Diagnosis 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) documented in this encounter Care Teams Bacon Slicer Relationship Specialty Start Date End Date Clara Stanley PA [address] [place] [address] PCP - General Nurse Practitioner 04/05/19 Jasper Canchola MD [address] [place] [address] Surgeon Thoracic Surgery 05/11/19 Alexis Lopez MD [address] [address] Payroll Accountant Pulmonary Disease 05/11/19 Kip Del Rio MD [address] [place] [address] Medical Oncologist/Mainspring Former Hematology and Oncology 05/11/19 Jacob Flynn MD [address] [place] [address] Radiation Oncologist Radiation Oncology 05/25/19 Renetta Ballesteros NP [address] [place], [place] [phone] Nurse Practitioner Radiation Oncology 06/11/22 documented as of this encounter
--- OUTSIDE RECORDS SUMMARY | 2024-03-02 03:41 | XMS_ITS | Encounter Summary ---
Author Organization [facility] Address [address] [place] [address] Phone Care Team Providers Care Senior Product Engineer Name Role Phone Clara Stanley Primary Care Provider + Jasper Canchola MD Unavailable Alexis Lopez MD Unavailable Kip Del Rio MD Unavailable Jacob Flynn MD Unavailable Renetta Ballesteros NP Unavailable Encounter Details Date Type Department Care Team (Late st Contact Info) Description 01/18/2024 Orders Only [facility] Oncology [address] 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 Days 10-14. 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 Do not start until day 10, then take for 5 days. Days 10-14. 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 Duplicate order 12/24/2023 01/18/2024 documented as of this encounter Care Teams Senior Product Engineer Relationship Specialty Start Date End Date Clara Stanley PA [address] [place] [address] PCP - General Nurse Practitioner 04/05/19 Jasper Canchola MD [address] [place] [address] Surgeon Thoracic Surgery 05/11/19 Alexis Lopez MD [address] [address] Building Trades Teacher Pulmonary Disease 05/11/19 Kip Del Rio MD [address] [place] [address] Medical Oncologist/Combination Presser Hematology and Oncology 05/11/19 Jacob Flynn MD [address] [place] [address] Radiation Oncologist Radiation Oncology 05/25/19 Renetta Ballesteros NP [address] [place] [address] Nurse Practitioner Radiation Oncology 06/11/22 documented as of this encounter
--- OUTSIDE RECORDS SUMMARY | 2024-03-02 03:41 | XMS_ITS | Encounter Summary ---
Author Organization [facility] Address [address] [place] [address] Phone Care Team Providers Care Emergency Crew Supervisor Name Role Phone Clara Stanley Primary Care Provider + Jasper Canchola MD Unavailable Alexis Lopez MD Unavailable [phone] Kip Del Rio MD Unavailable [phone] Jacob Flynn MD Unavailable Renetta Ballesteros NP Unavailable [phone] Encounter Details Date Type Department Care Team (Late st Contact Info) Description 12/04/2023 Telephone [facility] Oncology [address] [facility] Advanced Medicine 7th [place] [address] [place] [address] Imelda De Leon, KAMILA Social History Tobacco Use Types Packs/Day Years [...] on file 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 Kulkarni to discuss a request our office received to refill his Temodar prescription.I left a message and asked him to call our office back with the status of his current drug situation. I advised him that if he does need a refill, he will need to have labs drawn prior to dispensing.I will discuss this with him further when he returns my call. Mr. Deleon returned my call and stated he will complete the 2nd cycle of Temodar on 12/08/23. Then the plan is to get a CT Scan on 12/22/23 and be seen by Dr. Del Rio on 12/24/23. I advised him that we will wait until after his scan and labs to make a determination on refilling the medication. He voiced understanding and I offered him our ongoing support. documented in this encounter Plan of Treatment Not on file documented as of this encounter Visit Diagnoses Not on filedocumented in this encounter Care Teams Emergency Crew Supervisor Relationship Specialty Start Date End Date Clara Stanley PA [address] [place] [address] PCP - General Nurse Practitioner 04/05/19 Jasper Canchola MD [address] [place] [address] Surgeon Thoracic Surgery 05/11/19 lAexis Lopez MD [address] [facility] [place] [address] Cell Efficiency Supervisor Pulmonary Disease 05/11/19 Kip Del Rio MD [address] [facility] [address] [place], [place] [phone] Medical Oncologist/Design Painter Hematology and Oncology 05/11/19 Jacob Flynn MD [address] [facility] [address] [place] [address] Radiation Oncologist Radiation Oncology 05/25/19 Renetta Ballesteros NP [address] [facility] [address] [place] [address] Nurse Practitioner Radiation Oncology 06/11/22 documented as of this encounter
--- OUTSIDE RECORDS SUMMARY | 2024-03-02 03:41 | XMS_ITS | Encounter Summary ---
Author Organization [facility] Address [address] [place] [address] Phone Care Team Providers Care Integration Consultant Name Role Phone Clara Stanley Primary Care Provider + Jasper Canchola MD Unavailable Alexis Lopez MD Unavailable Kip Del Rio MD Unavailable [phone] Jacob Flynn MD Unavailable Renetta Ballesteros NP Unavailable Encounter Details Date Type Department Care Team (Late st Contact Info) Description 01/21/2024 8:45 AM CRIPPLE WORKER Lab 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 Gender Identity Not on file Sexual Orientation [...] Ordered Date ONCBCN LAB APPOINTMENT 1 01/22/2024 documented in this encounter Care Teams Integration Consultant Relationship Specialty Start Date End Date Clara Stanley PA [address] [place] [address] PCP - General Nurse Practitioner 04/05/19 Jasper Canchola MD [address] [place] [address] Surgeon Thoracic Surgery 05/11/19 Alexis Lopez MD [address] [address] Registered Dental Assistant Rda Pulmonary Disease 05/11/19 Kip Del Rio MD [address] [place] [address] Medical Oncologist/Vitreo Retinal Surgeon Hematology and Oncology 05/11/19 Jacob Flynn MD [address] [place] [address] Radiation Oncologist Radiation Oncology 05/25/19 Renetta Ballesteros NP [address] [facility] [address] [place] [address] Nurse Practitioner Radiation Oncology 06/11/22 documented as of this encounter
--- OUTSIDE RECORDS SUMMARY | 2024-03-02 03:41 | XMS_ITS | Encounter Summary ---
Author Organization [facility] Address [address] [place] [address] Care Team Providers Care Assistant Professor Of Biochemistry Name Role Phone Clara Stanley Primary Care Provider + Jasper Canchola MD Unavailable Alexis Lopez MD Unavailable Kip Del Rio MD Unavailable Jacob Flynn MD Unavailable Renetta Ballesteros NP Unavailable Encounter Details Date Type Department Care Team (Late st Contact Info) Description 02/18/2024 9:45 AM SUPERVISOR PASTE PLANT Lab [facility] [place] - Lab Collection [address] [place] [address] Neuroendocrine carcinoma of lung (HCC); Secondary malignant [...] file 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 Gender Identity Not on file Sexual Orientation Straight 09/22/2019 8: 21 PM CDT 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 on file Not on file documented as of this encounter Plan of Treatment Not on file documented as of this encounter Procedures Procedure Name Priority Date/Time Associated Diagnosis Comments EGFR Routine 02/18/2024 9:52 AM SUPERVISOR PASTE PLANT 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) DIFFERENTIAL AUTO Routine 02/18/2024 9:5 2 AM SUPERVISOR PASTE PLANT 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 73 m2 Comment: [...] last reviewed 2021. Blood 02/18/2024 9:52 AM SUPERVISOR PASTE PLANT 02/18/2024 9:57 AM SUPERVISOR PASTE PLANT us Kip Del Rio MD LAB BLOOD ORDERABLES Final Result [facility] Department [place] [address] * (ABNORMAL) Differential, auto (02/18/2024 9:52 AM SUPERVISOR PASTE PLANT) Neutrophil abs 9.7(H) 1.5 - 6.5 K/cumm Comment:Testing performed by : [facility], [address] [place], [place] [phone] Lymphocyte abs 0.6(L) 0.8 - 3.3 K/cumm [facility] Comment:Testing performed by : [facility], [address] [place] [phone] Monocyte abs 1.2(H) 0.2 - 0.8 K/cumm [facility] Comment:Testing performed by : [facility], [address] [place] [phone] Eosinophil abs 0.3 0.0 - 0.5 K/cumm [facility] Comment:Testing performed by : [facility], [address] [place] [phone] Basophil abs 0.1 0.0 - 0.1 K/cumm [facility] Comment:Testing performed by : [facility], [address] [place] [phone] Neutrophil pct 81.9 % CERNER [facility] Comment: Interpretive Data Percent cell count reference ranges are not reported, since discordance with absolute values may lead to misinterpretation of CBC data. Current Interpretive Data was last revised on 2017. Testing performed by: [facility], [address] [place] [phone] Lymphocyte pct 5.0 % CERNER [facility] Comment: Interpretive Data Percent cell count reference ranges are not reported, since discordance with absolute values may lead to misinterpretation of CBC data. Current Interpretive Data was last revised on 2017. Testing performed by: [facility], [address] [place] [phone] Monocyte pct 10.3 % C[facility] Comment: Interpretive Data Percent cell count reference ranges are not reported, since discordance with absolute values may lead to misinterpretation of CBC data. Current Interpretive Data was last revised on 2017. Testing performed by: [facility], [address] [place] [phone] Eosinophil pct 2.3 % C[facility]ER [facility] Comment: Interpretive Data Percent cell count reference ranges are not reported, since discordance with absolute values may lead to misinterpretation of CBC data. Current Interpretive Data was last revised on 2017. Testing performed by: [facility], [address] [place] [phone] Basophil pct 0.5 % C[facility] Comment: Interpretive Data Percent cell count reference ranges are not reported, since discordance with absolute values may lead to misinterpretation of CBC data. Current Interpretive Data was last revised on 2017. Testing performed by: [facility], [address] [place] [phone] Blood 02/18/2024 9:52 AM SUPERVISOR PASTE PLANT 02/18/2024 9:54 AM SUPERVISOR PASTE PLANT us Kip Del Rio MD LAB BLOOD ORDERABLES Final Result SEJAL [facility] Department of [place] [id number] * (ABNORMAL) CBC with auto differential (02/18/2024 9:52 AM SUPERVISOR PASTE PLANT) WBC 11.8(H) 3.8 - 9.9 K/cumm Comment:Testing performed by : [facility], [address] [place] [address] Hgb 14.1 13.0 - 17.5 g/dL CERNER [facility] Comment:Testing performed by : [facility], [address] [place] [address] Hct 42.4 38.9 - 50.3 % CERNER [facility] Comment:Testing performed by : [facility], [address] [place] [address] Plt 213 150 - 400 K/cumm CERNER [facility] Comment:Testing performed by : [facility], [address] [place] [address] MPV 9.6 6.8 - 10.4 fL C[facility]ER BJ Comment:Testing performed by : [facility], [address] [place] [address] RBC 4.39 4.30 - 5.80 M/cumm C[facility] Comment:Testing performed by : [facility], [address] [place] [address] MCV 96.4 81.3 - 96.4 fL CERNER BJ Comment:Testing performed by : [facility], [address] [place] [address] MCH 32.0 27.1 - 33.3 pg CERNER BJ Comment:Testing performed by : [facility], [address] [place] [address] MCHC 33.2 32.3 - 35.7 g/dL CERNER BJ Comment:Testing performed by : [facility], [address] [place] [address] RDW CV 16.8(H) 11.1 - 14.9 % C[facility]ER [facility] Comment:Testing performed by : [facility], [address] [place] [phone] NRBC abs 0.00 0.00 - 0.01 K/cumm [facility] Comment:Testing performed by : [facility], [address] [place] [address] Blood 02/18/2024 9:52 AM SUPERVISOR PASTE PLANT 02/18/2024 9:54 AM SUPERVISOR PASTE PLANT Kip Del Rio MD LAB BLOOD ORDERABLES Final Result [facility] [place] [address] * Comprehensive metabolic panel (02/18/2024 9:52 AM SUPERVISOR PASTE PLANT) Sodium 144 135 - 145 mmol/L Potassium, pl 4.7 3.3 - 4.9 mmol/L [facility] Chloride 107 97 - 110 mmol/L [facility] CO2 32 22 - 32 mmol/L [facility] Anion gap 5 2 - 15 mmol/L [facility] BUN 15 6 - 25 mg/dL [facility] Creatinine 0.81 0.80 - 1.30 mg/dL [facility] Glucose 110 70 - 199 mg/dL [facility] Comment: Interpretive Data Fasting glucose >/= [...] 2022. Calcium 9.8 8.5 - 10.3 mg/dL [facility] Bilirubin, total 0.2 0.1 - 1.2 mg/dL [facility] Protein, pl 8.0 6.5 - 8.5 g/dL [facility] Albumin 4.5 3.5 - 5.0 g/dL [facility] Alk phos 112 40 - 130 Units/L [facility] ALT 22 7 - 55 Units/L [facility] AST 25 10 - 50 Units/L [facility] Blood 02/18/2024 9:52 AM SUPERVISOR PASTE PLANT 02/18/2024 9:57 AM SUPERVISOR PASTE PLANT Kip Del Rio MD LAB BLOOD ORDERABLES Final Result 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 documented in this encounter Care Teams Assistant Professor Of Biochemistry Relationship Specialty Start Date End Date Clara Stanley PA [address] [place] [address] PCP - General Nurse Practitioner 04/05/19 Jasper Canchola MD [address] [place] [address] Surgeon Thoracic Surgery 05/11/19 Alexis Lopez MD [address] [address] Bike Mechanic Pulmonary Disease 05/11/19 Kip Del Rio MD [address] [place] [address] Medical Oncologist/Communications Superintendent Hematology and Oncology 05/11/19 Jacob Flynn MD [address] [place] [address] Radiation Oncologist Radiation Oncology 05/25/19 Renetta Ballesteros NP [address] [facility] [address] [place] [address] Nurse Practitioner Radiation Oncology 06/11/22 documented as of this encounter
--- OUTSIDE RECORDS SUMMARY | 2024-03-02 03:41 | XMS_ITS | Encounter Summary ---
Author Organization [facility] Address [address] [place] [address] Care Team Providers Care Warehouse Driver Name Role Phone Clara Stanley Primary Care Provider + Jasper Canchola MD Unavailable Alexis Lopez MD Unavailable [phone] Kip Del Rio MD Unavailable Jacob Flynn MD Unavailable Renetta Ballesteros NP Unavailable Encounter Details Date Type Department Care Team (Late st Contact Info) Description 11/12/2023 3:00 PM CDT Lab [facility] [address] [facility] Advanced Medicine 7th [place] [address] Primary cancer of right lower lobe of lung (HCC); Malignant neoplasm of lower lobe of right lung (HCC); Neuroendocrine carcinoma of lung (HCC) Social History [...] on file Legal 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 Gender Identity Not on file Sexual Orientation Straight 09/22/2019 8: 21 PM CDT 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 on file Not on file documented as of this encounter Plan of Treatment Not on file documented as of this encounter Procedures Procedure Name Priority Date/Time Associated Diagnosis Comments EGFR Routine 11/12/2023 2:53 PM CDT Primary cancer of right lower lobe of lung (HCC) Malignant neoplasm of lower lobe of right lung (HCC) Neuroendocrine carcinoma of lung (HCC) DIFFERENTIAL AUTO Routine 11/12/2023 2:5 3 PM CDT Primary cancer of right lower lobe of lung (HCC) Malignant neoplasm of lower lobe of right lung (HCC) Neuroendocrine carcinoma of lung (HCC) CBC WITH AUTO DIFFERENTIAL Routine 11/12/2023 2:53 PM CDT Primary cancer of right lower lobe of lung (HCC) Malignant neoplasm of lower lobe of right lung (HCC) Neuroendocrine carcinoma of lung (HCC) COMPREHENSIVE METABOLIC PANEL Routine 11/12/2023 2:53 PM CDT Primary cancer of right lower lobe of lung (HCC) Malignant neoplasm of lower lobe of right lung (HCC) Neuroendocrine carcinoma of lung (HCC) documented in this encounter Results * eGFR (11/12/2023 2:53 PM CDT) eGFR >90 >=60 mL/min/1. 73 [...] was last reviewed 2021. Testing performed by: [facility] [place] [facility], [address] [place] [phone] Blood 11/12/2023 2:53 PM CDT 11/12/2023 2:59 PM CDT us Kip Del Rio MD LAB BLOOD ORDERABLES Final Result Performing Organization Address City/State/[facility] Co de Phone Number SEJAL [facility] Department [place] [address] * (ABNORMAL) Differential, auto (11/12/2023 2:53 PM CDT) Neutrophil abs 7.1(H) 1.5 - 6.5 K/cumm Comment:Testing performed by : [place] [facility], [address] [place] [phone] Lymphocyte abs 1.1 0.8 - 3.3 K/cumm SE[facility]AL [facility] Comment:Testing performed by : [facility] [place] [facility], [address] [place] [phone] Monocyte abs 1.1(H) 0.2 - 0.8 K/cumm SE[facility] Comment:Testing performed by : [facility] [place] [facility], [address] [place] [phone] Eosinophil abs 0.4 0.0 - 0.5 K/cumm C[facility]ER [facility] Comment:Testing performed by : [facility] [place] [facility], [address] [place] [phone] Basophil abs 0.1 0.0 - 0.1 K/cumm [facility] Comment:Testing performed by : [facility] [place] [facility], [address] [place] [phone] Neutrophil pct 73.1 % C[facility] Comment: Interpretive Data Percent cell count reference ranges are not reported, since discordance with absolute values may lead to misinterpretation of CBC data. Current Interpretive Data was last revised on 2017. Testing performed by: [place] [facility], [address] [place] [phone] Lymphocyte pct 11.0 % C[facility] Comment: Interpretive Data Percent cell count reference ranges are not reported, since discordance with absolute values may lead to misinterpretation of CBC data. Current Interpretive Data was last revised on 2017. Testing performed by: [place] [facility], [address] [place] [phone] Monocyte pct 11.2 % C[facility]ER [facility]J Comment:Testing performed by : [facility] [place] [facility], [address] [place] [phone] Eosinophil pct 4.0 % C[facility] Comment:Testing performed by : [facility] [place] [facility], [address] [place] [phone] Basophil pct 0.7 % C[facility]ER BJ Comment:Testing performed by : [place] [facility], [address] [place] [phone] Blood 11/12/2023 2:5 3 PM CDT 11/12/2023 2:59 PM CDT us Kip Del Rio MD LAB BLOOD ORDERABLES Final Result [facility] [place] [address] * (ABNORMAL) CBC with auto differential (11/12/2023 2:53 PM CDT) WBC 9.7 3.8 - 9.8 K/cumm Comment:Testing performed by : [facility] [place] [facility], [address] [place] [address] Hgb 13.2(L) 13.8 - 17.2 g/dL CERNER BJ Comment:Testing performed by : [place] [address] Hct 38.7(L) 40.7 - 50.3 % CERNER BJ Comment:Testing performed by : [facility] [place] [facility], [address] [place] [address] Plt 228 140 - 440 K/cumm CERNER BJ Comment:Testing performed by : [place] [address] MPV 10.0 6.8 - 10.4 fL [facility]ER [facility]J Comment:Testing performed by : [place] [address] RBC 4.33(L) 4.50 - 5.70 M/cumm C[facility] Comment:Testing performed by : [place] [address] MCV 89.3 80.0 - 97.6 fL [facility]ER [facility]J Comment:Testing performed by : [place] [address] MCH 30.5 26.7 - 33.7 pg C[facility]ER BJ Comment:Testing performed by : [place] [address] MCHC 34.2 32.7 - 35.5 g/dL C[facility] Comment:Testing performed by : [place] [address] RDW CV 14.4 11.8 - 14.6 % C[facility]ER [facility]J Comment:Testing performed by : [place] [address] NRBC abs 0.00 0.00 - 0.01 K/cumm C[facility]ER [facility] Comment:Testing performed by : [place] [address] Blood 11/12/2023 2:53 PM CDT 11/12/2023 2:59 PM CDT Kip Del Rio MD LAB BLOOD ORDERABLES Final Result [facility] Department [place] [address] * (ABNORMAL) Comprehensive metabolic panel (11/12/2023 2:53 PM CDT) Sodium 137 135 - 145 mmol/L Comment:Testing performed by : [facility] [place] [facility], [address] [place] [phone] Potassium, pl 3.9 3.3 - 4.9 mmol/L SEJAL [facility] Comment:Testing performed by : [facility] [place] [facility], [address] [place] [phone] Chloride 100 97 - 110 mmol/L [facility] Comment:Testing performed by : [facility] [place] [facility], [address] [place] [phone] CO2 30 22 - 32 mmol/L [facility] Comment:Testing performed by : [facility] [place] [facility], [address] [place] [phone] Anion gap 7 2 - 15 mmol/L [facility]AL [facility] Comment:Testing performed by : [facility] [place] [facility], [address] [place] [phone] BUN 12 6 - 25 mg/dL [facility]AL [facility] Comment:Testing performed by : [facility] [place] [facility], [address] [place] [phone] Creatinine 0.58(L) 0.80 - 1.30 mg/dL [facility] Comment:Testing performed by : [facility] [place] [facility], [address] [place] [phone] Glucose 98 70 - 199 mg/dL SE[facility]AL [facility] Comment: Interpretive Data Fasting glucose >/= 126 [...] was last revised 2022. Testing performed by: [facility] [place] [facility], [address] [place] [phone] Calcium 9.9 8.5 - 10.3 mg/dL [facility] Comment:Testing performed by : [facility] [place] [facility], [address] [place] [phone] Bilirubin, total 0.4 0.1 - 1.2 mg/dL CERNER [facility]J Comment:Testing performed by : [facility] [place] [facility], [address] [place] [phone] Protein, pl 7.7 6.5 - 8.5 g/dL [facility] Comment:Testing performed by : [facility] [place] [facility], [address] [place] [phone] Albumin 4.4 3.5 - 5.0 g/dL [facility] Comment:Testing performed by : [facility] [place] [facility], [address] [place] [phone] Alk phos 87 40 - 130 Units/L [facility] Comment:Testing performed by : [address] [phone] ALT 35 7 - 55 Units/L [facility] Comment:Testing performed by : [facility] [place] [facility], [address] [place] [phone] AST 36 10 - 50 Units/L [facility] Comment:Testing performed by : [facility] [place] [facility], [address] [place] [phone] Blood 11/12/2023 2:53 PM CDT 11/12/2023 2:59 PM CDT us Kip Del Rio MD LAB BLOOD ORDERABLES Final Result [facility] [place] [address] documented in this encounter Visit Diagnoses Diagnosis Primary cancer of right lower lobe of lung (HCC) Malignant neoplasm of lower lobe of right lung (HCC) Neuroendocrine carcinoma of lung (HCC) documented in this encounter Care Teams Warehouse Driver Relationship Specialty Start Date End Date Clara Stanley PA [address] [place] [address] PCP - General Nurse Practitioner 04/05/19 Jasper Canchola MD [address] [place] [address] Surgeon Thoracic Surgery 05/11/19 Alexis Lopez MD [address] [address] Corporate Communications Intern Pulmonary Disease 05/11/19 Kip Del Rio MD [address] [place] [address] Medical Oncologist/Veneer Manufacturer Hematology and Oncology 05/11/19 Jacob Flynn MD [address] [place] [address] Radiation Oncologist Radiation Oncology 05/25/19 Renetta Ballesteros NP [address] [place] [address] Nurse Practitioner Radiation Oncology 06/11/22 documented as of this encounter
--- OUTSIDE RECORDS SUMMARY | 2024-03-02 03:41 | XMS_ITS | Encounter Summary ---
Author Organization [facility] Address [address] [place] [address] Phone Care Team Providers Care Operators School Manager Name Role Phone Clara Stanley Primary Care Provider + Jasper Canchola MD Unavailable Alexis Lopez MD Unavailable Kip Del Rio MD Unavailable Jacob Flynn MD Unavailable [phone] Renetta Ballesteros NP Unavailable [phone] Encounter Details Date Type Department Care Team (Late st Contact Info) Description 01/18/2024 Orders Only [facility] Oncology [address] [facility] [address] [place] [address] Cheri Leonard, 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 on file Not on file documented as of this encounter Plan of Treatment Not on file documented as of this encounter Visit Diagnoses Not on filedocumented in this encounter Care Teams Operators School Manager Relationship Specialty Start Date End Date Clara Stanley PA [address] [place] [address] PCP - General Nurse Practitioner 04/05/19 Jasper Canchola MD [address] [place] [address] Surgeon Thoracic Surgery 05/11/19 Alexis Lopez MD [address] [address] Molding And Trim Installer Pulmonary Disease 05/11/19 Kip Del Rio MD [address] [place] [address] Medical Oncologist/Hematology Oncology Consultant Hematology and Oncology 05/11/19 Jacob Flynn MD [address] [place] [address] Radiation Oncologist Radiation Oncology 05/25/19 Renetta Ballesteros NP [address] [facility] [address] [place] [address] Nurse Practitioner Radiation Oncology 06/11/22 documented as of this encounter
--- OUTSIDE RECORDS SUMMARY | 2024-03-02 03:41 | XMS_ITS | Encounter Summary ---
Author Organization [facility] Healthcare Address [address] [place] [address] Care Team Providers Care Power Press Operator Name Role Phone Clara Stanley Primary Care Provider + Jasper Canchola MD Unavailable Alexis Lopez MD Unavailable [phone] Kip Del Rio MD Unavailable Jacob Flynn MD Unavailable [phone] Renetta Ballesteros NP Unavailable Encounter Details Date Type Department Care Team (Late st Contact Info) Description 01/21/2024 9:00 AM SHARK BIOLOGIST Lab [facility] [place] - Lab Collection [address] [facility] [address] [place] [address] Neuroendocrine carcinoma of lung (HCC); Secondary malignant [...] on file Legal Sex Male 1:17 AM SHARK BIOLOGIST Gender Identity Not on file Sexual Orientation Straight 09/22/2019 8: 21 PM CDT 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 on file Not on file documented as of this encounter Plan of Treatment Not on file documented as of this encounter Procedures Procedure Name Priority Date/Time Associated Diagnosis Comments DIFFERENTIAL AUTO Routine 01/21/2024 8:5 9 AM SHARK BIOLOGIST 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) CBC WITH AUTO DIFFERENTIAL Routine 01/21/2024 8:59 AM SHARK BIOLOGIST 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) EGFR Routine 01/21/2024 8:57 AM SHARK BIOLOGIST 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) COMPREHENSIVE METABOLIC PANEL Routine 01/21/2024 8:57 AM SHARK BIOLOGIST 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) documented in this encounter Results * (ABNORMAL) Differential, auto (01/21/2024 8:59 AM SHARK BIOLOGIST) Neutrophil abs 6.3 1.5 - 6.5 K/cumm Comment:Testing performed by : [facility], [address] [place], [place] [phone] Lymphocyte abs 1.0 0.8 - 3.3 K/cumm CERNER BJ Comment:Testing performed by : [facility], [address] [place] [phone] Monocyte abs 1.2(H) 0.2 - 0.8 K/cumm CERNER BJ Comment:Testing performed by : [facility], [address] [place], [place] [phone] Eosinophil abs 0.1 0.0 - 0.5 K/cumm CERNER BJ Comment:Testing performed by : [facility], [address] [place] [phone] Basophil abs 0.1 0.0 - 0.1 K/cumm C[facility]ER [facility] Comment:Testing performed by : [facility], [address] [place] [phone] Neutrophil pct 72.4 % C[facility]ER [facility] Comment: Interpretive Data Percent cell count reference ranges are not reported, since discordance with absolute values may lead to misinterpretation of CBC data. Current Interpretive Data was last revised on 2017. Testing performed by: [facility], [address] [place] [phone] Lymphocyte pct 11.6 % CERNER BJ Comment: Interpretive Data Percent cell count reference ranges are not reported, since discordance with absolute values may lead to misinterpretation of CBC data. Current Interpretive Data was last revised on 2017. Testing performed by: [facility], [address] [place] [phone] Monocyte pct 13.6 % CERNER BJ Comment: Interpretive Data Percent cell count reference ranges are not reported, since discordance with absolute values may lead to misinterpretation of CBC data. Current Interpretive Data was last revised on 2017. Testing performed by: [facility], [address] [place] [phone] Eosinophil pct 1.7 % [facility] Comment: Interpretive Data Percent cell count reference ranges are not reported, since discordance with absolute values may lead to misinterpretation of CBC data. Current Interpretive Data was last revised on 2017. Testing performed by: [facility], [address] [place] [phone] Basophil pct 0.7 % CERNER BJ Comment: Interpretive Data Percent cell count reference ranges are not reported, since discordance with absolute values may lead to misinterpretation of CBC data. Current Interpretive Data was last revised on 2017. Testing performed by: [facility], [address] [place] [phone] Blood 01/21/2024 8:59 AM SHARK BIOLOGIST 01/21/2024 9:01 AM SHARK BIOLOGIST us Kip Del Rio MD LAB BLOOD ORDERABLES Final Result [facility]AL [facility] Department [place] [address] * (ABNORMAL) CBC with auto differential (01/21/2024 8:59 AM SHARK BIOLOGIST) WBC 8.6 3.8 - 9.9 K/cumm Comment:Testing performed by : [facility], [address] [place] [address] Hgb 14.7 13.0 - 17.5 g/dL SEJAL HEARN Comment:Testing performed by : [facility], [address] [place] [address] Hct 43.9 38.9 - 50.3 % SEJAL [facility]ARN Comment:Testing performed by : [facility], [address] [place] [address] Plt 210 150 - 400 K/cumm SEJAL HEARN Comment:Testing performed by : [facility], [address] [place] [address] MPV 9.7 6.8 - 10.4 fL CERRAFAELA HEARN Comment:Testing performed by : [facility], [address] [place] [address] RBC 4.66 4.30 - 5.80 M/cumm SEJAL HEARN Comment:Testing performed by : [facility], [address] [place] [address] MCV 94.3 81.3 - 96.4 fL CERRAFAELA BJ Comment:Testing performed by : [facility], [address] [place] [address] MCH 31.6 27.1 - 33.3 pg CERRAFAELA BJ Comment:Testing performed by : [facility], [address] [place] [address] MCHC 33.6 32.3 - 35.7 g/dL CERRAFAELA HEARN Comment:Testing performed by : [facility], [address] [place] [phone] RDW CV 17.7(H) 11.1 - 14.9 % SEJAL [facility] Comment:Testing performed by : [facility], [address] [place] [phone] NRBC abs 0.00 0.00 - 0.01 K/cumm SEJAL HEARN Comment:Testing performed by : [facility], [address] [place] [phone] Blood 01/21/2024 8:59 AM SHARK BIOLOGIST 01/21/2024 9:01 AM SHARK BIOLOGIST us Kip Del Rio MD LAB BLOOD ORDERABLES Final Result SE[facility] Department [place] [address] * eGFR (01/21/2024 8:57 AM SHARK BIOLOGIST) eGFR >90 >=60 mL/min/1. 73 m2 Comment: [...] last reviewed 2021. Blood 01/21/2024 8:57 AM SHARK BIOLOGIST 01/21/2024 9:05 AM SHARK BIOLOGIST us Kip Del Rio MD LAB BLOOD ORDERABLES Final Result [facility] Department [place] [address] * (ABNORMAL) Comprehensive metabolic panel (01/21/2024 8:57 AM SHARK BIOLOGIST) Sodium 140 135 - 145 mmol/L Potassium, pl 4.7 3.3 - 4.9 mmol/L [facility] Chloride 101 97 - 110 mmol/L [facility] CO2 32 22 - 32 mmol/L [facility] Anion gap 7 2 - 15 mmol/L [facility] BUN 17 6 - 25 mg/dL [facility] Creatinine 0.73(L) 0.80 - 1.30 mg/dL [facility] Glucose 103 70 - 199 mg/dL [facility] Comment: Interpretive Data Fasting glucose >/= [...] 2022. Calcium 10.5(H) 8.5 - 10.3 mg/dL [facility] Bilirubin, total 0.4 0.1 - 1.2 mg/dL [facility] Protein, pl 8.5 6.5 - 8.5 g/dL [facility] Albumin 4.6 3.5 - 5.0 g/dL [facility] Alk phos 93 40 - 130 Units/L [facility] ALT 21 7 - 55 Units/L [facility] AST 23 10 - 50 Units/L [facility] Blood 01/21/2024 8:57 AM SHARK BIOLOGIST 01/21/2024 9:05 AM SHARK BIOLOGIST Kip Del Rio MD LAB BLOOD ORDERABLES Final Result [facility] Department [place] [address] documented in this encounter Visit Diagnoses Diagnosis 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 documented in this encounter Care Teams Power Press Operator Relationship Specialty Start Date End Date Clara Stanley PA [address] [place] [id number] PCP - General Nurse Practitioner 04/05/19 Jasper Canchola MD [address] [place] [phone] Surgeon Thoracic Surgery 05/11/19 Alexis Lopez MD [address] [address] Tax Associate Pulmonary Disease 05/11/19 Kip Del Rio MD [address] [place] [address] Medical Oncologist/Bonus Clerk Hematology and Oncology 05/11/19 Jacob Flynn MD [address] [place] [address] Radiation Oncologist Radiation Oncology 05/25/19 Renetta Ballesteros NP [address] [facility] [address] [place] [address] Nurse Practitioner Radiation Oncology 06/11/22 documented as of this encounter
--- OUTSIDE RECORDS SUMMARY | 2024-03-02 03:41 | XMS_ITS | Encounter Summary ---
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) Procedures CT Chest Abdomen Pelvis W Contrast Kip Del Rio MD [address] [facility] [address] [place] [address] Phone: tel: fax: [address] [phone] Referral ID Status Reason Start Date Expiration Date Visits Re quested Visits Authorized [id number] Closed 11/11/2023 12/10/2024 1 1 Encounter Details Date Type Department Care Team (Late st Contact Info) Description 11/12/2023 3:40 PM CDT Office Visit [facility] Oncology [address] [facility] 7th [place] [address] [place] [id number] Kip Del Rio MD [address] [facility] [address] [place] [address] Primary cancer of right lower lobe of lung (HCC) (Primary Dx); 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); Neuroendocrine carcinoma of lung (HCC); Malignant neoplasm [...] on file 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 Gender Identity Not on file Sexual Orientation Straight 09/22/2019 8: 21 PM CDT 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 on file Not on file documented as of this encounter Last Filed Vital Signs Vital Sign Reading Time Taken Comments Blood Pressure 127/77 11/12/2023 3:33 PM CDT Pulse 92 11/12/2023 3:33 PM CDT Temperature 36.6 ??C (97.9 ??F) 11/12/2023 3:33 PM CD T Respiratory Rate 16 11/12/2023 3:33 PM CDT Oxygen Saturation 100% 11/12/2023 3:33 PM CDT Inhaled Oxygen Concentration - - Weight 151.4 kg (333 lb 12.8 oz) 11/12/2023 3:33 PM CDT Height - - Body Mass Index 41.72 10/16/2023 7:54 AM CDT documented in this encounter Progress Notes * Cheri Leonard DNP - 11/12/2023 3:40 PM CDT Images from the original note [...] well-differentiated neuroendocrine tumor. Genomics: Cell-free DNA through [id number] 10/01/2023: FGFR2 N235K (0.2%), ARTIS G6484S (0.2%). MSI-High Not Detected. Treatment: Right lower lobectomy and mediastinal lymph node dissection for excision of a T1cN2 neuroendocrine carcinoma on 05/26/2019. Radiation therapy to the subcarinal lymph node for a total of 6,000 cGy in 15 fractions, 01/31-02/21/2021. Capecitabine and Temozolomide initiated 10/28/2023. Neuroendocrine carcinoma of lung (CMS/HCC) (HCC) 05/10/2019 Initial Diagnosis Neuroendocrine carcinoma of lung (CMS/HCC) (HCC) Active Treatment Plans for Kwaku Kulkarni [facility] Chemotherapy Treatment: Capecitabine / Temozolomide PO 28 day cycle - Neuroendocrine Current day: Day 1, Cycle 2 (Planned for 11/19/2023) Following planned day: Day 1, Cycle 3 (Planned for 12/24/2023) Subjective Interval History Mr. Kulkarni presents today for follow-up accompanied by his . He started capecitabine on 10/28/2023 and finished that on 11/10/2023 and started temozolomide on 11/06/2023. He did have some nausea but no vomiting. He is taking antiemetics when he needed it which controlled his nausea. He denies any recent fevers, chills, worsening [...] Units total) by mouth, Disp: , Rfl: tyqhsdeyswu-mopuonysw-ftbrevdr (Trelegy Ellipta) 100-62.5-25 mcg inhaler, Inhale 1 [...] ONCE DAILY IN THE EVENING. *VIAL*, Disp: 90 tablet, Rfl: 0 multivitamin capsule, Take 1 capsule by mouth [...] pantoprazole DR (PROTONIX) 40 mg EC tablet, Take 1 tablet (40 mg total) by mouth daily, Disp: 30 tablet, Rfl: 2 pravastatin (PRAVACHOL) 40 mg tablet, , Disp: [...] (five) minutes as needed, Disp: , Rfl: semaglutide (Wegovy) 0.25 mg/0.5 mL auto-injector, Inject 0.5 mL (0.25 mg total) under the skin once a week (Patient not taking: Reported on 09/23/2023), Disp: , Rfl: Review of Systems: As per Interval History. All other systems reviewed and negative. Performance Status: 1 Objective Vitals: Most Recent : BP: 127/77 Temp: 36.6 ??C (97.9 ??F) Temp src: Transdermal Pulse: 92 Resp: 16 SpO2: 100 % Weight: (!) 151.4 kg (333 lb 12.8 oz) Physical Exam: General: Well-appearing, in no acute [...] Lab History Latest Ref Rng & Units 10/01/2023 16:55 10/22/2023 14:20 11/12/2023 14:53 Labs - Hematology WBC 3.8 - 9.8 K/cumm 10.6 12.0 9.7 Total Hb, POC 13.8 - 17.2 g/dL 14.2 13.7 13.2 Hct 40.7 - 50.3 % 43.3 41.7 38.7 Plt 140 - 440 K/cumm 247 246 228 Neutrophil abs 1.5 - 6.5 K/cumm 7.3 8.8 7.1 Lymphocytes, abs 0.8 - 3.3 K/cumm 1.6 1.7 1.1 Chem/LFT Lab History Latest Ref Rng & Units 09/23/2023 09:47 10/01/2023 16:55 10/22/2023 14:20 11/12/2023 14:53 Labs-Chem/LFT Sodium 135 - 145 mmol/L 140 137 137 Creatinine 0.80 - 1.30 mg/dL 0.73 0.78 0.58 Bilirubin, total 0.1 - 1.2 mg/dL 0.3 0.4 0.4 AST 10 - 50 Units/L 28 26 36 ALT 7 - 55 Units/L 27 23 35 Alk phos 40 - 130 Units/L 95 99 87 CrCl- Actual Body Weight (Cockcroft-Gault) 227.7 246.3 226.6 304.6 Lab Results Component Value Date POTASSIUM 3.9 11/12/2023 CO2 30 11/12/2023 CHLORIDE 100 11/12/2023 GLUCOSE 98 11/12/2023 Lab Results Component Value Date CALCIUM 9.9 11/12/2023 Assessment/Plan Mr. Kwaku Kulkarni is a 58-year [...] He tolerated cycle 1 quite well. He is out of town next week. We will plan to get labs on 11/20/2023 and then he will start cycle 2 on 11/25/2023. He will get a CT scan 12/22/2023 to evaluate treatment re sponse and we will see him back on 12/24/2023 before cycle 3. He will call us in the interim for any questions, concerns, or worsening symptoms. He is agreeable with this plan of care. Cheri Leonard DNP, EARLY CHILDHOOD COORDINATOR-[facility] Division of Oncology [facility] in [place] Cosigned by Kip Del Rio MD at 11/25/2023 12:19 PM CDT documented in this encounter Plan of Treatment Not on file documented as of this encounter Results * Comprehensive metabolic panel (12/24/2023 12:27 PM CDT) Sodium 140 135 - 145 mmol/L Potassium, pl 4.2 3.3 - 4.9 mmol/L [facility] Chloride 102 97 - 110 mmol/L [facility] CO2 32 22 - 32 mmol/L [facility] Anion gap 6 2 - 15 mmol/L [facility] BUN 16 6 - 25 mg/dL [facility] Creatinine 0.87 0.80 - 1.30 mg/dL [facility] Glucose 98 70 - 199 mg/dL [facility] Comment: Interpretive Data Fasting glucose >/= [...] Calcium 10.1 8.5 - 10.3 mg/dL [facility] Bilirubin, total 0.4 0.1 - 1.2 mg/dL [facility] Protein, pl 7.8 6.5 - 8.5 g/dL [facility] Albumin 4.4 3.5 - 5.0 g/dL [facility] Alk phos 83 40 - 130 Units/L [facility] ALT 15 7 - 55 Units/L [facility] AST 21 10 - 50 Units/L [facility] Blood 12/24/2023 12:2 7 PM CDT 12/24/2023 12:34 PM CDT us Kip Del Rio MD LAB BLOOD ORDERABLES Final Result [facility] One [facility] [place] [address] * (ABNORMAL) CBC with auto differential (12/24/2023 12:23 PM CDT) WBC 7.8 3.8 - 9.9 K/cumm Comment:Testing performed by : [facility], [address] [place] [address], [place] [address] Hgb 14.0 13.0 - 17.5 g/dL [facility] Comment:Testing performed by : [facility], [address] [place] [address] Hct 42.5 38.9 - 50.3 % [facility] Comment:Testing performed by : [facility], [address] [place], [place] [phone] Plt 198 150 - 400 K/cumm [facility] Comment:Testing performed by : [facility], [address] [place], [place] [phone] MPV 9.7 6.8 - 10.4 fL [facility] Comment:Testing performed by : [facility], [address] [place], [place] [phone] RBC 4.57 4.30 - 5.80 M/cumm [facility] Comment:Testing performed by : [facility], [address] [place], [place] [phone] MCV 93.1 81.3 - 96.4 fL [facility] Comment:Testing performed by : [facility], [address] [place] [address] MCH 30.7 27.1 - 33.3 pg [facility] Comment:Testing performed by : [facility], [address] [place] [address] MCHC 33.0 32.3 - 35.7 g/dL [facility] Comment:Testing performed by : [facility], [address] [place] [address] RDW CV 17.3(H) 11.1 - 14.9 % [facility] Comment:Testing performed by : [facility], [address] [place] [address] NRBC abs 0.00 0.00 - 0.01 K/cumm [facility] Comment:Testing performed by : [facility], [address] [place] [address] Blood 12/24/2023 12:2 3 PM CDT 12/24/2023 12:31 PM CDT us Kip Del Rio MD LAB BLOOD ORDERABLES Final Result [facility] One [facility] [place] [address] * CT Chest Abdomen Pelvis W Contrast [...] IMG CT PROCEDURES Final Re sult * (ABNORMAL) Comprehensive metabolic panel (11/20/2023 12:58 PM CDT) Sodium 136 135 - 145 mmol/L Comment:Testing performed by : [facility], [address] [place] [phone] Potassium, pl 4.7 3.3 - 4.9 mmol/L [facility] Comment:Testing performed by : [address] [address] Chloride 101 97 - 110 mmol/L [facility] Comment:Testing performed by : [facility], [address] [place] [phone] CO2 29 22 - 32 mmol/L [facility] Comment:Testing performed by : [address] [address] Anion gap 6 2 - 15 mmol/L [facility] Comment:Testing performed by : [address] [phone] BUN 14 6 - 25 mg/dL [facility] Comment:Testing performed by : [facility], [address] [place] [phone] Creatinine 0.75(L) 0.80 - 1.30 mg/dL [facility] Comment:Testing performed by : [address] [address] Glucose 97 70 - 199 mg/dL [facility] Comment: Interpretive Data Fasting glucose >/= [...] was last revised 2022. Testing performed by: [facility], [address] [place] [phone] Calcium 10.0 8.5 - 10.3 mg/dL [facility] Comment:Testing performed by : [facility], [address] [place] [phone] Bilirubin, total 0.5 0.1 - 1.2 mg/dL [facility] Comment:Testing performed by : [facility], [address] [place] [phone] Protein, pl 7.7 6.5 - 8.5 g/dL [facility] Comment:Testing performed by : [address] [address] Albumin 4.4 3.5 - 5.0 g/dL [facility] Comment:Testing performed by : [facility], [address] [place] [phone] Alk phos 91 40 - 130 Units/L [facility] Comment:Testing performed by : [address] [phone] ALT 25 7 - 55 Units/L [facility] Comment:Testing performed by : [address] [phone] AST 24 10 - 50 Units/L [facility] Comment:Testing performed by : [facility], [address] [place] [phone] Blood 11/20/2023 12:5 8 PM CDT 11/20/2023 1:03 PM CDT us Kip Del Rio MD LAB BLOOD ORDERABLES Final Result [facility] One [facility] [place] [address] * (ABNORMAL) CBC with auto differential (11/20/2023 12:58 PM CDT) WBC 10.4(H) 3.8 - 9.8 K/cumm Comment:Testing performed by : [facility], [address] [place], [place] [phone] Hgb 13.8 13.8 - 17.2 g/dL [facility] Comment:Testing performed by : [place] [id number] Hct 41.1 40.7 - 50.3 % [facility] Comment:Testing performed by : [place] [id number] Plt 229 140 - 440 K/cumm [facility] Comment:Testing performed by : [place] [address] MPV 9.4 6.8 - 10.4 fL [facility] Comment:Testing performed by : [place] [id number] RBC 4.53 4.50 - 5.70 M/cumm [facility] Comment:Testing performed by : [place] [id number] MCV 90.7 80.0 - 97.6 fL [facility] Comment:Testing performed by : [place] [id number] MCH 30.4 26.7 - 33.7 pg [facility] Comment:Testing performed by : [place] [id number] MCHC 33.5 32.7 - 35.5 g/dL [facility] Comment:Testing performed by : [place] [id number] RDW CV 15.2(H) 11.8 - 14.6 % [facility] Comment:Testing performed by : [place] [id number] NRBC abs 0.01 0.00 - 0.01 K/cumm [facility] Comment:Testing performed by : [address] [phone] Blood 11/20/2023 12:5 8 PM CDT 11/20/2023 1:03 PM CDT Kip Del Rio MD LAB BLOOD ORDERABLES Final Result [facility] One [facility] [place] [address] documented in this encounter Visit Diagnoses Diagnosis Primary cancer of right lower lobe of lung (HCC)- Primary 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) documented in this encounter Orders Appointment Requests Count Last Ordered Date Fi rst Ordered Date ONCBCN CLINIC APPOINTMENT REQUEST 3 024 11/12/2023 ONCBCN LAB APPOINTMENT 1 11/12/2023 documented in this encounter Care Teams Bird Trapper Relationship Specialty Start Date End Date Clara Stanley PA [address] [place] [address] PCP - General Nurse Practitioner 04/05/19 Jasper Cnachola MD [address] [place] [address] Surgeon Thoracic Surgery 05/11/19 Alexis Lopez MD [address] [address] Academy Education Director Pulmonary Disease 05/11/19 Kip Del Rio MD [address] [facility] [address] [place] [address] Medical Oncologist/Overhead Cleaner Maintainer Hematology and Oncology 05/11/19 Jacob Flynn MD [address] [facility] [address] [place] [address] Radiation Oncologist Radiation Oncology 05/25/19 Renetta Ballesteros NP [address] [facility] [address] [place] [address] Nurse Practitioner Radiation Oncology 06/11/22 documented as of this encounter
--- OUTSIDE RECORDS SUMMARY | 2024-03-02 03:41 | XMS_ITS | Encounter Summary ---
Author Organization [facility] Address [address] [place] [address] Phone Care Team Providers Care Emission Specialist Name Role Phone Clara Stanley Primary Care Provider + Jasper Canchola MD Unavailable Alexis Lopez MD Unavailable [phone] Kip Del Rio MD Unavailable Jacob Flynn MD Unavailable Renetta Ballesteros NP Unavailable [phone] Encounter Details Date Type Department Care Team (Late st Contact Info) Description 10/22/2023 Orders Only [facility] Oncology [address] [facility] 7th [place] [address] [place] [address] Kip Del Rio MD [address] [facility] [address] [place] [address] Malignant neoplasm of lower lobe of right lung (HCC) (Primary Dx); Neuroendocrine carcinoma of lung [...] on file 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 Do not start until day 10, then take for 5 days. Days 10-14. 5 capsule 10/22/2023 4 temozolomide (TEMODAR) 100 mg capsuleIndications :Malignant neoplasm of lower lobe of right lung (HCC),Neuroendocri ne carcinoma of lung (HCC) Take 3 capsules (300 mg) by mouth daily for 5 days Total dose is 480 mg. Do not start until day 10, then take for 5 days. Days 10-14. 15 capsule 10/22/2023 4 capecitabine (XELODA) 500 mg tabletIndications: Malignant neoplasm of lower lobe of right lung (HCC),Neuroendocri ne carcinoma of lung (HCC) Take 3 tablets (1,500 mg) by mouth 2 (two) times a day for 14 days. 84 tablet 10/22/2023 4 documented in this encounter Plan of Treatment Not on file documented as of this encounter Visit Diagnoses Diagnosis Malignant neoplasm of lower lobe of right lung (HCC)- Primary Neuroendocrine carcinoma of lung (HCC) documented in this encounter Care Teams Emission Specialist Relationship Specialty Start Date End Date Clara Stanley PA [address] [place] [address] PCP - General Nurse Practitioner 04/05/19 Jasper Canchola MD [address] [place] [address] Surgeon Thoracic Surgery 05/11/19 Alexis Lopez MD [address] [address] Senior Audit Manager Pulmonary Disease 05/11/19 Kip Del Rio MD [address] [facility] [address] [place] [address] Medical Oncologist/Drafter (Cad) Electronic Hematology and Oncology 05/11/19 Jacob Flynn MD [address] [facility] [address] [place] [address] Radiation Oncologist Radiation Oncology 05/25/19 Renetta Ballesteros NP [address] [place] [address] Nurse Practitioner Radiation Oncology 06/11/22 documented as of this encounter
--- OUTSIDE RECORDS SUMMARY | 2024-03-02 03:41 | XMS_ITS | Encounter Summary ---
Author Organization [facility] Address [address] [place] [address] Phone Care Team Providers Care Farmworker Fur Name Role Phone Clara Stanley Primary Care Provider + Jasper Canchola MD Unavailable Alexis Lopez MD Unavailable [phone] Kip Del Rio MD Unavailable [phone] Jacob Flynn MD Unavailable Renetta Ballesteros NP Unavailable [phone] Encounter Details Date Type Department Care Team (Late st Contact Info) Description 12/24/2023 12:15 PM CDT Lab [facility] Oncology Lab [address] [facility] [address] [place] [address] Social History Tobacco Use Types Packs/Day Years [...] on file Legal 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 Gender Identity Not on file Sexual Orientation Straight 09/22/2019 8: 21 PM CDT 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 on file Not on file documented as of this encounter Plan of Treatment Not on file documented as of this encounter Visit Diagnoses Not on filedocumented in this encounter Care Teams Farmworker Fur Relationship Specialty Start Date End Date Clara Stanley PA [address] [place] [address] PCP - General Nurse Practitioner 04/05/19 Jasper Canchola MD [address] [place] [address] Surgeon Thoracic Surgery 05/11/19 Alexis Lopez MD [address] [address] Manager Statistics Pulmonary Disease 05/11/19 Kip Del Rio MD [address] [place] [address] Medical Oncologist/Sql Tech Hematology and Oncology 05/11/19 Jacob Flynn MD [address] [place] [address] Radiation Oncologist Radiation Oncology 05/25/19 Renetta Ballesteros NP [address] [place] [address] Nurse Practitioner Radiation Oncology 06/11/22 documented as of this encounter
--- OUTSIDE RECORDS SUMMARY | 2024-03-02 03:41 | XMS_ITS | Encounter Summary ---
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) Procedures MRI Brain W WO Contrast Kip Del Rio MD [address] [facility] [address] [place] [address] Phone: tel: fax: [address] [address] Referral ID Status Reason Start Date Expiration Date Visits Re quested Visits Authorized [id number] Closed 01/20/2024 02/18/2025 1 1 NESS DEVELOPMENT ANALYST * Diagnostic Imaging (Routine) - Closed Specialty Diagnoses / Procedures Referred By Erik t Referred To Contact Radiology Diagnoses 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) Procedures CT Chest Abdomen Pelvis W Contrast Kip Del Rio MD [address] [place] [address] Phone: tel: fax: [facility] [address] [facility] [place] [address] Referral ID Status Reason Start Date Expiration Date Visits Re quested Visits Authorized [id number] Closed 01/20/2024 02/18/2025 1 1 NESS DEVELOPMENT ANALYST Reason for Visit * Oncology (Routine) - Authorized Specialty Diagnoses / Procedures Referred By Erik t Referred To Contact Oncology Diagnoses Primary cancer of right lower lobe of lung (HCC) Jacob Flynn MD [address] [place] [address] Phone: tel: fax: Kip Del Rio MD [address] [place] [address] Phone: tel: fax: Referral ID Status Reason Start Date Expiration Date Visits Requested Visits Authorized [id number] Authorized Specialty Services Required 09/25/2023 03/15/2024 99 99 Encounter Details Date Type Department Care Team (Late st Contact Info) Description 01/21/2024 9:40 AM BUSINESS DEVELOPMENT ANALYST Office Visit [facility] Oncology [address] [facility] [address] [place] [address] Kip Del Rio MD [address] [place] [address] Neuroendocrine carcinoma of lung (HCC) (Primary Dx); [...] on file Legal Sex Male 1:17 AM BUSINESS DEVELOPMENT ANALYST Gender Identity Not on file Sexual Orientation Straight 09/22/2019 8: 21 PM CDT 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 on file Not on file documented as of this encounter Last Filed Vital Signs Vital Sign Reading Time Taken Comments Blood Pressure 131/85 01/21/2024 9:03 AM BUSINESS DEVELOPMENT ANALYST Pulse 78 01/21/2024 9:03 AM BUSINESS DEVELOPMENT ANALYST Temperature 36.3 ??C (97.4 ??F) 01/21/2024 9:03 AM CS T Respiratory Rate 19 01/21/2024 9:03 AM BUSINESS DEVELOPMENT ANALYST Oxygen Saturation 96% 01/21/2024 9:03 AM BUSINESS DEVELOPMENT ANALYST Inhaled Oxygen Concentration - - Weight 147.4 kg (325 lb) 01/21/2024 9:03 AM BUSINESS DEVELOPMENT ANALYST Height - - Body Mass Index 40.62 10/16/2023 7:54 AM CDT documented in this encounter Ordered Prescriptions Prescription Sig Dispense Quantity Refills Last Filled Start Date End Date temozolomide (TEMODAR) 180 mg capsuleIndications :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 Do not start until day 10, then take for 5 days. Days 10-14. 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 Do not start until day 10, then take for 5 days. Days 10-14. 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 84 tablet 01/21/2024 4 documented in this encounter Progress Notes * Kip Del Rio MD - 01/21/2024 9:40 AM CST Images from the original note [...] well-differentiated neuroendocrine tumor. Genomics: Cell-free DNA through [place] [address] 10/01/2023: FGFR2 N235K (0.2%), ARTIS K2570C (0.2%). MSI-High Not Detected. Treatment: Right lower [...] He tolerated cycle 1 quite well. He started cycle 2on 11/25/2023 and cycle 3 on December 25 2023. He will start cycle 4 on 01/22/24 Neuroendocrine carcinoma of lung (CMS/HCC) (HCC) 05/10/2019 Initial Diagnosis Neuroendocrine carcinoma of lung (CMS/HCC) (HCC) Active Treatment Plans for Kwaku Kulkarni Oncology Chemotherapy Treatment: Capecitabine / Temozolomide PO 28 day cycle - Neuroendocrine Current day: Day 1, Cycle 5 (Planned for 02/18/2024) Following planned day: Day 1, Cycle 6 (Planned for 03/17/2024) Subjective Interval History Mr. Kulkarni presents today for follow-up. He started capecitabine and temozolomide. He is [...] Date ABDOMINAL SURGERY APPENDECTOMY BRONCHOSCOPY 05/30/2019 COLONOSCOPY 2018 COLONOSCOPY ESOPHAGOGASTRODUODENOSCOPY 04/2019 LUMBAR PUNCTURE 04/03/2019 MEDIASTINOSCOPY [...] , Rfl: capecitabine (XELODA) 500 mg tablet, Take 3 tablets (1,500 mg) by mouth 2 (two) times a day for 14 days., Disp: 84 tablet, Rfl: 0 chlorthalidone (HYGROTON) 25 mg tablet, , Disp: , Rfl: cholecalciferol (VITAMIN D-3) 50,000 unit capsule, Take 1 capsule (50,000 Units total) by mouth, Disp: , Rfl: bnupwppdzaw-riovvggmj-hjubeiyu (Trelegy Ellipta) 100-62.5-25 mcg inhaler, Inhale 1 [...] Rfl: 3 temozolomide (TEMODAR) 100 mg capsule, Take 3 capsules (300 mg) by mouth daily for 5 days Total dose is 480 mg. Do not start until day 10, then take for 5 days. Days 10-14., Disp: 15 capsule, Rfl: 0 temozolomide (TEMODAR) 180 mg capsule, Take 1 capsule (180 mg) by mouth daily for 5 days Total doseis 480 mg. Do not start until day 10, then take for 5 days. Days 10-14., Disp: 5 capsule, Rfl: 0 ALPRAZolam (XANAX) 0.5 mg tablet, Take 1 tablet by mouth 30-45 minutes before scans. Can repeat x 1during scan if needed., Disp: 5 tablet, Rfl: 1 capecitabine (XELODA) 500 mg tablet, Take 3 tablets (1,500 mg) by mouth 2 (two) times a day for 14 days., Disp: 84 tablet, Rfl: 0 fexofenadine (CHERELLE) 180 mg tablet, Take 1 tablet (180 mg total) by mouth daily, Disp: 30 tablet,Rfl: 11 fluticasone propionate (FLONASE) 50 mcg/actuation nasal spray, Administer 2 sprays into each nostril daily, Disp: 16 g, Rfl: 6 nitroglycerin (NITROSTAT) 0.4 mg SL tablet, Place 1 tablet (0.4 mg total) under the tongue every 5 (five) minutes as needed, Disp: , Rfl: temozolomide (TEMODAR) 100 mg capsule, Take 3 capsules (300 mg) by mouth daily for 5 days Total dose is 480 mg. Do not start until day 10, then take for 5 days. Days 10-14., Disp: 15 capsule, Rfl: 0 temozolomide (TEMODAR) 180 mg capsule, Take 1 capsule (180 mg) by mouth daily for 5 days Total doseis 480 mg. Do not start until day 10, then take for 5 days. Days 10-14., Disp: 5 capsule, Rfl: 0 Review of Systems: As per Interval History. All other systems reviewed and negative. Performance Status: 1 Objective Vitals: Most Recent : BP 131/85 (BP Location: Right arm) Pulse 78 Temp 36.3 ??C (97.4 ??F) Resp 19 Wt (!) 147.4 kg (325 lb) SpO2 96% BMI 40.62 kg/m?? Physical Exam: General: Well-appearing, in no acute [...] Rng & Units 11/12/2023 14:53 11/20/2023 12:58 12/24/2023 12:23 01/21/2024 08:59 Labs - Hematology WBC 3.8 - 9.9 K/cumm 9.7 10.4 7.8 8.6 Total Hb, POC 13.0 - 17.5 g/dL 13.2 13.8 14.0 14.7 Hct 38.9 - 50.3 % 38.7 41.1 42.5 43.9 Plt 150 - 400 K/cumm 228 229 198 210 Neutrophil abs 1.5 - 6.5 K/cumm 7.1 7.3 5.0 6.3 Lymphocytes, abs 0.8 - 3.3 K/cumm 1.1 1.5 1.4 1.0 Chem/LFT Lab History Latest Ref Rng & Units 11/20/2023 12:58 12/22/2023 11:17 12/24/2023 12:27 01/21/2024 08:57 Labs-Chem/LFT Sodium 135 - 145 mmol/L 136 140 140 Creatinine 0.80 - 1.30 mg/dL 0.75 0.87 0.73 Bilirubin, total 0.1 - 1.2 mg/dL 0.5 0.4 0.4 AST 10 - 50 Units/L 24 21 23 ALT 7 - 55 Units/L 25 15 21 Alk phos 40 - 130 Units/L 91 83 93 CrCl- Actual Body Weight (Cockcroft-Gault) 235.5 196.3 199.6 235.6 Lab Results Component Value Date POTASSIUM 4.7 01/21/2024 CO2 32 01/21/2024 CHLORIDE 101 01/21/2024 GLUCOSE 103 01/21/2024 Lab Results Component Value Date CALCIUM 10.5 (H) 01/21/2024 Assessment/Plan Mr. Kwaku Kulkarni is a 58-year [...] quite well. I am pleased with his response and tolerance of therapy so far. We will see him back in four weeks with a follow up CT chest and abdomen along with brain MRI Kip Del Rio M.D. Division of Oncology [facility] NESS DEVELOPMENT ANALYST documented in this encounter Plan of Treatment Not on file documented as of this encounter Results * Comprehensive metabolic panel (02/18/2024 9:52 AM BUSINESS DEVELOPMENT ANALYST) Sodium 144 135 - 145 mmol/L Potassium, pl 4.7 3.3 - 4.9 mmol/L [facility] Chloride 107 97 - 110 mmol/L [facility] CO2 32 22 - 32 mmol/L [facility] Anion gap 5 2 - 15 mmol/L [facility] BUN 15 6 - 25 mg/dL [facility] Creatinine 0.81 0.80 - 1.30 mg/dL [facility] Glucose 110 70 - 199 mg/dL [facility] Comment: Interpretive Data Fasting glucose >/= [...] 2022. Calcium 9.8 8.5 - 10.3 mg/dL [facility] Bilirubin, total 0.2 0.1 - 1.2 mg/dL [facility] Protein, pl 8.0 6.5 - 8.5 g/dL [facility] Albumin 4.5 3.5 - 5.0 g/dL [facility] Alk phos 112 40 - 130 Units/L [facility] ALT 22 7 - 55 Units/L [facility] AST 25 10 - 50 Units/L [facility] Blood 02/18/2024 9:52 AM BUSINESS DEVELOPMENT ANALYST 02/18/2024 9:57 AM BUSINESS DEVELOPMENT ANALYST us Kip Del Rio MD LAB BLOOD ORDERABLES Final Result [facility] Department [place] [address] * (ABNORMAL) CBC with auto differential (02/18/2024 9:52 AM BUSINESS DEVELOPMENT ANALYST) WBC 11.8(H) 3.8 - 9.9 K/cumm Comment:Testing performed by : [facility], [address] [place] [address] Hgb 14.1 13.0 - 17.5 g/dL [facility] Comment:Testing performed by : [facility], [address] [place] [address] Hct 42.4 38.9 - 50.3 % [facility] Comment:Testing performed by : [facility], [address] [place] [address] Plt 213 150 - 400 K/cumm [facility] Comment:Testing performed by : [facility], [address] [place] [address] MPV 9.6 6.8 - 10.4 fL [facility] Comment:Testing performed by : [facility], [address] [place] [address] RBC 4.39 4.30 - 5.80 M/cumm CERRAFAELA BJ Comment:Testing performed by : [facility], [address] [place] [address] MCV 96.4 81.3 - 96.4 fL [facility]ERRAFAELA BJ Comment:Testing performed by : [facility], [address] [place] [address] MCH 32.0 27.1 - 33.3 pg [facility]FAELA [facility]J Comment:Testing performed by : [facility], [address] [place] [address] MCHC 33.2 32.3 - 35.7 g/dL [facility] Comment:Testing performed by : [facility], [address] [place] [phone] RDW CV 16.8(H) 11.1 - 14.9 % [facility] Comment:Testing performed by : [facility], [address] [place] [phone] NRBC abs 0.00 0.00 - 0.01 K/cumm [facility] Comment:Testing performed by : [facility], [address] [place] [phone] Blood 02/18/2024 9:52 AM BUSINESS DEVELOPMENT ANALYST 02/18/2024 9:54 AM BUSINESS DEVELOPMENT ANALYST us Kip Del Rio MD LAB BLOOD ORDERABLES Final Result [facility] Department [place] [address] * CT Chest Abdomen Pelvis W Contrast (02/16/2024 6:28 PM BUSINESS DEVELOPMENT ANALYST) Anatomical Region Laterality Modality Body N/A Computed Tomogra phy 02/17/2024 9:44 AM BUSINESS DEVELOPMENT ANALYST Impressions 02/17/2024 12:53 PM BUSINESS DEVELOPMENT ANALYST 1. ??No significant change in posttreatment changes [...] Vikki Way M.D. Narrative 02/17/2024 12:53 PM BUSINESS DEVELOPMENT ANALYST EXAMINATION: ??Computed tomography of the chest, abdomen [...] Vikki Way M.D. Kip Del Rio MD IMSary CT PROCEDURES Final Re sult * MRI Brain W WO Contrast (02/16/2024 5:42 PM BUSINESS DEVELOPMENT ANALYST) Anatomical Region Laterality Modality Head and Neck N/A Magnetic Resonan ce 02/17/2024 8:38 AM BUSINESS DEVELOPMENT ANALYST Impressions 02/17/2024 4:37 PM BUSINESS DEVELOPMENT ANALYST No evidence of intracranial metastatic disease. Dictated by: Shannon Turner MD The radiology attending physician has personally reviewed this study, and had reviewed and/or edited this written report and agrees with it. 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) documented in this encounter Orders Nursing Count Last Ordered Date First Orde red Date ONCBCN TREATMENT PARAMETERS 8 1 01/21/2024 Appointment Requests Count Last Ordered Date Fi rst Ordered Date ONCBCN CLINIC APPOINTMENT REQUEST 2 024 01/21/2024 ONCBCN LAB APPOINTMENT 1 02/18/2024 documented in this encounter Care Teams Stock Dealer Relationship Specialty [place] [address] [place] [phone] PCP - General Nurse Practitioner 04/05/19 Jasper Canchola MD [address] [place] [address] Surgeon Thoracic Surgery 05/11/19 Alexis Lopez MD [address] [facility] [address] [place] [address] [place] [address] Crew Caller Pulmonary Disease 05/11/19 Kip Del Rio MD [address] [facility] [address] [place], [place] [id number] Medical Oncologist/Litigation Legal Assistant Hematology and Oncology 05/11/19 Jacob Flynn MD [address] [facility] [address] [place], [place] [id number] Radiation Oncologist Radiation Oncology 05/25/19 Renetta Ballesteros NP [address] [facility] [address] [place] [address] Nurse Practitioner Radiation Oncology 06/11/22 documented as of this encounter
--- OUTSIDE RECORDS SUMMARY | 2024-03-02 03:41 | XMS_ITS | Encounter Summary ---
Author Organization [facility] Address [address] [place] [address] Phone Care Team Providers Care Desktop Support Engineer Name Role Phone Clara Stanley Primary Care Provider + Jasper Canchola MD Unavailable Alexis Lopez MD Unavailable Kip Del Rio MD Unavailable Jacob Flynn MD Unavailable Renetta Ballesteros NP Unavailable Encounter Details Date Type Department Care Team (Late st Contact Info) Description 02/18/2024 10:40 AM WINDOWS DESKTOP ENGINEER Office Visit [facility] Oncology [address] 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 on file Not on file documented as of this encounter Last Filed Vital Signs Vital Sign Reading Time Taken Comments Blood Pressure 132/77 02/18/2024 9:58 AM WINDOWS DESKTOP ENGINEER Pulse 101 02/18/2024 9:58 AM WINDOWS DESKTOP ENGINEER Temperature 36.4 ??C (97.6 ??F) 02/18/2024 9:58 AM CS T Respiratory Rate 19 02/18/2024 9:58 AM WINDOWS DESKTOP ENGINEER Oxygen Saturation 99% 02/18/2024 9:58 AM WINDOWS DESKTOP ENGINEER Inhaled Oxygen Concentration - - Weight 153 kg (337 lb 6.4 oz) 02/18/2024 9:58 AM WINDOWS DESKTOP ENGINEER Height - - Body Mass Index 42.17 02/16/2024 4:53 PM WINDOWS DESKTOP ENGINEER documented in this encounter Progress Notes * Dave Diaz MD - 02/18/2024 10:40 AM CST Images from the original note [...] well-differentiated neuroendocrine tumor. Genomics: Cell-free DNA through [id number] 10/01/2023: FGFR2 N235K (0.2%), ARTIS C3417F (0.2%). MSI-High Not Detected. Treatment: Right lower [...] Mr. Kulkarni presents today for follow-up. He is doing well on cape/tem. He does report nausea with temozolomide which is generally manageable with ondansetron and prochlorperazine. He has no vomiting. Otherwise, he denies any recent fevers, chills, worsening cough [...] Hx No Known Allergies Current Outpatient Medications: ALPRAZolam (XANAX) 0.5 mg tablet, Take 1 tablet by mouth 30-45 minutes before scans. Can repeat x 1during scan if needed., Disp: 5 tablet, Rfl: 1 amLODIPine (NORVASC) 10 mg tablet, Take 1 tablet (10 mg total) by mouth every morning, Disp: , Rfl: ascorbic acid (VITAMIN C) 1,000 mg tablet, Take 1 tablet (1,000 mg total) by mouth daily, Disp: , Rfl: chlorthalidone (HYGROTON) 25 mg tablet, , Disp: , Rfl: cholecalciferol (VITAMIN D-3) 50,000 unit capsule, Take 1 capsule (50,000 Units total) by mouth, Disp: , Rfl: tloulzzprwu-wgnaqnwoi-hscqvjee (Trelegy Ellipta) 100-62.5-25 mcg inhaler, Inhale 1 [...] for nausea, Disp: 120 tablet, Rfl: 3 capecitabine (XELODA) 500 mg tablet, Take 3 [...] 1 Objective Vitals: Most Recent : BP 132/77 (BP Location: Right arm) Pulse 101 Temp 36.4 ??C (97.6 ??F) (Oral) Resp 19 Wt (!) 153 kg (337 lb 6.4 oz) SpO2 99% BMI 42.17 kg/m?? Physical Exam: General: Well-appearing, in no [...] Latest Ref Rng & Units 11/20/2023 12:58 12/24/2023 12:23 01/21/2024 08:59 02/18/2024 09:52 Labs - Hematology WBC 3.8 - 9.9 K/cumm 10.4 7.8 8.6 11.8 Total Hb, POC 13.0 - 17.5 g/dL 13.8 14.0 14.7 14.1 Hct 38.9 - 50.3 % 41.1 42.5 43.9 42.4 Plt 150 - 400 K/cumm 229 198 210 213 Neutrophil abs 1.5 - 6.5 K/cumm 7.3 5.0 6.3 9.7 Lymphocytes, abs 0.8 - 3.3 K/cumm 1.5 1.4 1.0 0.6 Chem/LFT Lab History Latest Ref Rng & Units 12/22/2023 11:17 12/24/2023 12:27 01/21/2024 08:57 02/18/2024 09:52 Labs-Chem/LFT Sodium 135 - 145 mmol/L 140 140 144 Creatinine 0.80 - 1.30 mg/dL 0.87 0.73 0.81 Bilirubin, total 0.1 - 1.2 mg/dL 0.4 0.4 0.2 AST 10 - 50 Units/L 21 23 25 ALT 7 - 55 Units/L 15 21 22 Alk phos 40 - 130 Units/L 83 93 112 CrCl- Actual Body Weight (Cockcroft-Gault) 196.3 199.6 235.6 220.4 Lab Results Component Value Date POTASSIUM 4.7 02/18/2024 CO2 32 02/18/2024 CHLORIDE 107 02/18/2024 GLUCOSE 110 02/18/2024 Lab Results Component Value Date CALCIUM 9.8 02/18/2024 CT Chest Abdomen Pelvis W Contrast Result Date: 02/17/2024 Impression: 1. No significant change in posttreatment changes within the right lung, pulmonary nodules, or omental nodule when compared to CT 12/22/2023. 2. Likely due to phase of contrast on today'sexamination, the hepatic lesions are less conspicuous. Within these limitations, the hepatic lesions are also unchanged in size compared to CT 12/22/2023. Dictated by: Bryce Whitfield MD The radiology attending physician has personally reviewed this study, and had reviewed and/or edited this written report and agrees with it. Electronically signed by: Vikki Way M.D. MRI Brain W WO Contrast Result Date: 02/17/2024 Impression: No evidence of intracranial metastatic disease. Dictated by: Shannon Turner MD Assessment/Plan Mr. Kwaku Kulkarni is a 58-year [...] cycle will consist of 28 days. He is tolerating treatment well other than nausea associated with temozolomide, which is generally manageable. Imaging from 02/16/24 showed no evidence of disease progression. We will see him back in four weeks for a visit. Dave Diaz MD PGY6 Hematology Oncology 02/18/24 1:19 PM Cosigned by Kip Del Rio MD at 02/22/2024 10:00 AM WINDOWS DESKTOP ENGINEER OWS DESKTOP ENGINEER OWS DESKTOP ENGINEER Associated attestation - Kip Del Rio MD - 02/22/2024 10:00 AM WINDOWS DESKTOP ENGINEER I have seen and examined the patient. I agree with the findings and plan of care as documented in the resident/fellow's note. My total encounter time on 02/18/2024 was 20 minutes which was spent in the activities documented in the note. This includes time spent prior to the visit and after the visitin direct care of the patient. This time does not include time spent in any separately reportable services. 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 Medication Sig Dispense Quantity Refills Last Filled Start D ate End Date temozolomide (TEMODAR) 100 mg capsule 01/22/2024 02/18/2024 temozolomide (TEMODAR) 180 mg capsule 01/22/2024 02/18/2024 added in this encounter Orders Appointment Requests Count Last Ordered Date Fi rst Ordered Date ONCBCN CLINIC APPOINTMENT REQUEST 2 024 02/17/2024 ONCBCN LAB APPOINTMENT 1 02/17/2024 documented in this encounter Care Teams Desktop Support Engineer Relationship Specialty Start Date End Date Clara Stanley PA [address] [place] [address] PCP - General Nurse Practitioner 04/05/19 Jasper Canchola MD [address] [place] [address] Surgeon Thoracic Surgery 05/11/19 Alexis Lopez MD [address] [facility] [place] [address] Corporate Services Manager Pulmonary Disease 05/11/19 Kip Del Rio MD [address] [facility] [address] [place] [address] Medical Oncologist/Warehouse Pricing And Inventory Clerk Hematology and Oncology 05/11/19 Jacob Flynn MD [address] [facility] [address] [place] [address] Radiation Oncologist Radiation Oncology 05/25/19 Renetta Ballesteros NP [address] [facility] [address] [place] [address] Nurse Practitioner Radiation Oncology 06/11/22 documented as of this encounter
--- OUTSIDE RECORDS SUMMARY | 2024-03-02 03:41 | XMS_ITS | Encounter Summary ---
Author Organization [facility] Address [address] [place] [address] Care Team Providers Care Tibco Developer Name Role Phone Clara Stanley Primary Care Provider + Jasper Canchola MD Unavailable Alexis Lopez MD Unavailable [phone] Kip Del Rio MD Unavailable Jacob Flynn MD Unavailable Renetta Ballesteros NP Unavailable [phone] Encounter Details Date Type Department Care Team (Late st Contact Info) Description 02/25/2024 2:15 PM ENVIRONMENTAL PROGRAM MANAGER Lab [facility] Building [address] [address] Neuroendocrine carcinoma of lung (HCC); Secondary malignant [...] on file Legal Sex Male 1:17 AM ENVIRONMENTAL PROGRAM MANAGER Gender Identity Not on file Sexual Orientation Straight 09/22/2019 8: 21 PM CDT 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 on file Not on file documented as of this encounter Plan of Treatment Not on file documented as of this encounter Procedures Procedure Name Priority Date/Time Associated Diagnosis Comments EGFR STAT 02/25/2024 2:21 PM ENVIRONMENTAL PROGRAM MANAGER Neuroendocrine carcinoma of lung (HCC) DIFFERENTIAL AUTO STAT 02/25/2024 2:2 1 PM ENVIRONMENTAL PROGRAM MANAGER Neuroendocrine carcinoma of lung (HCC) CBC WITH AUTO DIFFERENTIAL STAT 02/25/2024 2:21 PM ENVIRONMENTAL PROGRAM MANAGER Neuroendocrine carcinoma of lung (HCC) COMPREHENSIVE METABOLIC PANEL STAT 02/25/2024 2:21 PM ENVIRONMENTAL PROGRAM MANAGER Neuroendocrine carcinoma of lung (HCC) documented in this encounter Results * eGFR (02/25/2024 2:21 PM ENVIRONMENTAL PROGRAM MANAGER) eGFR >90 >=60 mL/min/1. 73 m2 Comment: [...] was last reviewed 2021. Testing performed by: [address] [address] Blood 02/25/2024 2:21 PM ENVIRONMENTAL PROGRAM MANAGER 02/25/2024 2:35 PM ENVIRONMENTAL PROGRAM MANAGER us Kip Del Rio MD LAB BLOOD ORDERABLES Final Result [facility] [address] Department [place] [address] * (ABNORMAL) Differential, auto (02/25/2024 2:21 PM ENVIRONMENTAL PROGRAM MANAGER) Neutrophil abs 5.1 1.5 - 6.5 K/cumm Comment:Testing performed by : [address] [address] Imm gran abs 0.0 0.0 - 0.1 K/cumm SEJAL Comment:Testing performed by : [address] [address] Lymphocyte abs 1.1 0.8 - 3.3 K/cumm SEJAL Comment:Testing performed by : [address] [address] Monocyte abs 1.0(H) 0.2 - 0.8 K/cumm SEJAL Comment:Testing performed by : [address] [address] Eosinophil abs 0.3 0.0 - 0.5 K/cumm SEJAL Comment:Testing performed by : [address] [address] Basophil abs 0.0 0.0 - 0.1 K/cumm SEJAL Comment:Testing performed by : [address] [address] Neutrophil pct 67.4 % [facility] Comment: Interpretive Data Percent cell count reference ranges are not reported, since discordance with absolute values may lead to misinterpretation of CBC data. Current Interpretive Data was last revised on 2017. Testing performed by: [address] [address] Imm gran pct 0.4 % [facility] Comment: Interpretive Data Percent cell count reference ranges are not reported, since discordance with absolute values may lead to misinterpretation of CBC data. Current Interpretive Data was last revised on 2017. Testing performed by: [address] [address] Lymphocyte pct 15.0 % [facility] Comment: Interpretive Data Percent cell count reference ranges are not reported, since discordance with absolute values may lead to misinterpretation of CBC data. Current Interpretive Data was last revised on 2017. Testing performed by: [address] [address] Monocyte pct 13.4 % [facility] Comment: Interpretive Data Percent cell count reference ranges are not reported, since discordance with absolute values may lead to misinterpretation of CBC data. Current Interpretive Data was last revised on 2017. Testing performed by: [address] [address] Eosinophil pct 3.5 % [facility] Comment: Interpretive Data Percent cell count reference ranges are not reported, since discordance with absolute values may lead to misinterpretation of CBC data. Current Interpretive Data was last revised on 2017. Testing performed by: [address] [address] Basophil pct 0.3 % [facility] Comment: Interpretive Data Percent cell count reference ranges are not reported, since discordance with absolute values may lead to misinterpretation of CBC data. Current Interpretive Data was last revised on 2017. Testing performed by: [address] [address] Blood 02/25/2024 2:21 PM ENVIRONMENTAL PROGRAM MANAGER 02/25/2024 2:35 PM ENVIRONMENTAL PROGRAM MANAGER us Kip Del Rio MD LAB BLOOD ORDERABLES Final Result [facility] [address] [facility] Department [place] [address] * (ABNORMAL) Comprehensive metabolic panel (02/25/2024 2:21 PM ENVIRONMENTAL PROGRAM MANAGER) Sodium 138 135 - 145 mmol/L Comment:Testing performed by : [address] [address] Potassium, pl 4.1 3.3 - 4.9 mmol/L SEJAL Comment:Testing performed by : [address] [address] Chloride 101 97 - 110 mmol/L SEJAL Comment:Testing performed by : [address] [address] CO2 28 22 - 32 mmol/L SEJAL Comment:Testing performed by : [address] [address] Anion gap 9 2 - 15 mmol/L SEJAL Comment:Testing performed by : [address] [address] BUN 14 6 - 25 mg/dL SEJAL Comment:Testing performed by : [address] [address] Creatinine 0.70(L) 0.80 - 1.30 mg/dL SEJAL Comment:Testing performed by : [address] [address] Glucose 98 70 - 199 mg/dL SEJAL [...] was last revised 2022. Testing performed by: [address] [place]., [address] Calcium 9.9 8.5 - 10.3 mg/dL SEJAL Comment:Testing performed by : [address] [address] Bilirubin, total 0.3 0.1 - 1.2 mg/dL SEJAL Comment:Testing performed by : [address] [address] Protein, pl 7.6 6.5 - 8.5 g/dL SEJAL Comment:Testing performed by : [address] [address] Albumin 4.4 3.5 - 5.0 g/dL SEJAL Comment:Testing performed by : [address] [address] Alk phos 94 40 - 130 Units/L SEJAL Comment:Testing performed by : [address] [address] ALT 18 7 - 55 Units/L SEJAL Comment:Testing performed by : [address] [address] AST 21 10 - 50 Units/L SEJAL Comment:Testing performed by : [address] [address] Blood 02/25/2024 2:21 PM ENVIRONMENTAL PROGRAM MANAGER 02/25/2024 2:35 PM ENVIRONMENTAL PROGRAM MANAGER us Kip Del Rio MD LAB BLOOD ORDERABLES Final Result [facility] [address] [facility] Department [place] [address] * (ABNORMAL) CBC with auto differential (02/25/2024 2:21 PM ENVIRONMENTAL PROGRAM MANAGER) [facility] WBC 7.5 3.8 - 9.9 K/cumm Comment:Testing performed by : [address] [address] Hgb 13.9 13.0 - 17.5 g/dL SEJAL Comment:Testing performed by : [address] [address] Hct 41.3 38.9 - 50.3 % SEJAL Comment:Testing performed by : [address], [address] Plt 144(L) 150 - 400 K/cumm SEJAL Comment:Testing performed by : [address] [address] MPV 11.5 9.1 - 12.3 fL SEJAL Comment:Testing performed by : [address], [address] RBC 4.31 4.30 - 5.80 M/cumm SEJAL Comment:Testing performed by : [address], [address] MCV 95.8 81.3 - 96.4 fL SEJAL Comment:Testing performed by : [address], [address] MCH 32.3 27.1 - 33.3 pg SEJAL Comment:Testing performed by : [address], [address] MCHC 33.7 32.3 - 35.7 g/dL SEJAL Comment:Testing performed by : [address], [address] RDW CV 15.1(H) 11.1 - 14.9 % SEJAL Comment:Testing performed by : [address], [address] RDW SD 54.1(H) 35.7 - 48.1 fL SEJAL Comment:Testing performed by : [address], [address] NRBC abs 0.00 0.00 - 0.01 K/cumm SEJAL Comment:Testing performed by : [address], [address] Blood 02/25/2024 2:21 PM ENVIRONMENTAL PROGRAM MANAGER 02/25/2024 2:35 PM ENVIRONMENTAL PROGRAM MANAGER us Kip Del Rio MD LAB BLOOD ORDERABLES Final Result [facility] [address] 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 documented in this encounter Care Teams Tibco Developer Relationship Specialty Start Date End Date Clara Stanley PA [address] [place] [address] PCP - General Nurse Practitioner 04/05/19 Jasper Canchola MD [address] [place] [address] Surgeon Thoracic Surgery 05/11/19 Alexis Lopez MD [address] [address] Can Labeler Pulmonary Disease 05/11/19 Kip Del Rio MD [address] [place] [address] Medical Oncologist/Hands Hanger Hematology and Oncology 05/11/19 Jacob Flynn MD [address] [place] [address] Radiation Oncologist Radiation Oncology 05/25/19 Renetta Ballesteros NP [address] [place] [address] Nurse Practitioner Radiation Oncology 06/11/22 documented as of this encounter
--- OUTSIDE RECORDS SUMMARY | 2024-03-02 03:41 | XMS_ITS ---
Author Organization [facility] Address [address] [place] [address] Care Team Providers Care Ice Cream Vault Worker Name Role Phone Clara Stanley Primary Care Provider + Jasper Canchola MD Unavailable Alexis Lopez MD Unavailable Kip Del Rio MD Unavailable Jacob Flynn MD Unavailable [phone] Renetta Ballesteros NP Unavailable Active Problems Problem Noted Date Diagnosed Date Morbid (severe) obesity due to excess calories 1 04/29/2021 Body mass index (BMI) 45.0-49.9, adult 2 Radiotherapy follow-up examination 06/05/2021 Secondary malignant neoplasm [...] pressure. Assessment & Plan (02/26/2022 2:50 PM TWISTING FRAME CHANGER): Patient will continue with positional therapy. I did encourage the patient to resume CPAP therapy at an auto titrating range of 5-20 cm water pressure. Assessment & Plan (02/01/2021 11:11 AM TWISTING FRAME CHANGER): The patient has an auto titrating CPAP unit with a range of 5-20 cm water pressure. He is going to restart CPAP therapy. I will send an order to [facility] for new supplies. Assessment & Plan (10/05/2020 11:01 AM CDT): I did encourage the patient to use the auto titrating CPAP unit with a range of 5-20 cm water pressure. His DME is [employer]. Assessment & Plan (04/06/2020 9:51 AM TWISTING FRAME CHANGER): The patient was encouraged to resume auto [...] need for supplies. The DME company is [employer]. The patient is benefitting from CPAP therapy. Assessment & Plan (12/02/2019 9:49 AM CDT): The patient just received his auto titrating CPAP unit with a range of 5-20 cm water pressure. His DME is [employer]. Mild intermittent asthma without complication Overview (06/04/2021): [...] Amador. Assessment & Plan (02/26/2022 2:51 PM TWISTING FRAME CHANGER): The patient was given a trial of [...] PFT. Assessment & Plan (02/01/2021 11:10 AM TWISTING FRAME CHANGER): I did recommend that the patient try to use the Symbicort b.i.d. for period of time to see if this will resolve the coughing. Continues to use the albuterol on a p.r.n. basis. He continues on Flonase and Zyrtec daily. He does have some reflux symptoms and I did recommend that he try an [id number] proton pump inhibitor. Assessment & Plan (10/05/2020 11:01 AM CDT): The patient is breathing has been under good control with albuterol MDI, Symbicort and Flonase. Assessment & Plan (04/06/2020 9:51 AM TWISTING FRAME CHANGER): The patient will continue with Symbicort 2 [...] (06/04/2021): Added automatically from request for surgery [id number] Added automatically from request for surgery [id number] Last Assessment & Plan: The patient's cough has essentially resolved with treatment of his cough variant of asthma with Symbicort, gastroesophageal reflux with Pepcid and Flonase for postnasal drip. I did tell him he could try stopping the Flonase and/or the Pepcid to see if the Symbicort alone would control the cough. Added automatically from request for surgery [id number] Last Assessment & Plan: The patient's cough [...] PM CDT): The patient did see the gas substation operator but he did not reveal a reason [...] dry cough now. He did see the gas substation operator and allergy shots versus Dupixent is being considered. He will continue on Protonix 40 mg daily. I will consider bronchoscopy if the allergy shots/Dupixent do not control the cough. Assessment & Plan (02/26/2022 2:52 PM TWISTING FRAME CHANGER): Patient will continue treating the asthma with [...] with Flonase and Hui for now. The gas substation operator skin test is pending. I will check a methacholine challenge since he recently had normal PFTs. Allergies 07/11/2019 Assessment & Plan (08/08/2022 9:59 AM CDT): The patient has not heard from the gas substation operator. I did send a message to our office staff to follow-up. LEIDA (acute kidney injury) (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 Radiation Treatments * Plan Last Treated On Elapsed Days Fractions Treated Prescribed Fraction Dose Prescribed Total Dose MEDIASTINUM 02/21/2021 21 15 400 cGy 6,000 cG y Reference Point Last Treated On Elapsed Days Session Dose Total Dose lung dpv 02/21/2021 21 400 cGy 6,000 cGy Lifetime Dose Tracking * Chemical Lifetime Dose Automatic Entry Manual Entr y DLP 27,945 mGycm 27,945 mGycm 0 mGycm Resolved Problems Problem Noted Date Diagnosed Date [...]
--- OUTSIDE RECORDS SUMMARY | 2024-03-02 03:41 | XMS_ITS | Encounter Summary ---
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) Procedures CT Chest Abdomen Pelvis W Contrast Kip Del Rio MD [address] [facility] [address] [place] [address] Phone: tel: fax: [address] [phone] Referral ID Status Reason Start Date Expiration Date Visits Re quested Visits Authorized [id number] Closed 11/11/2023 12/10/2024 1 1 Reason for Visit * Diagnostic Imaging (Routine) - Closed Specialty Diagnoses / Procedures Referred By Contac t Referred To Contact Radiology Diagnoses 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) Procedures CT Chest Abdomen Pelvis W Contrast Kip Del Rio MD [address] [facility] [address] [place] [address] Phone: tel: fax: [address] [phone] Referral ID Status Reason Start Date Expiration Date Visits Re quested Visits Authorized [id number] Closed 11/11/2023 12/10/2024 1 1 Encounter Details Date Type Department Care Team (Latest Contact Info) Description 12/22/2023 11:05 AM CDT - 12/22/2023 11:59 PM CDT Hospital Encounter [facility] - [facility] [address] [facility] Floor [address] [place] [address] Secondary malignant neoplasm of mediastinal lymph node [...] on file Legal Sex Male 1:17 AM NET FRONT END DEVELOPER Gender Identity Not on file Sexual Orientation Straight 09/22/2019 8: 21 PM CDT 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 on file Not on file documented as of this encounter Medications at Time of Discharge amLODIPine (NORVASC) 10 mg tabletIndications :hypertension Take [...] first for nausea 120 tablet 3 4 capecitabine (XELODA) 500 mg tabletIndications :Malignant 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 (TOTAL DAILY DOSE OF 480 MG) 15 capsule 4 12/24/19 temozolomide (TEMODAR) 180 mg capsuleIndication s:Malignant neoplasm of lower lobe of right lung (HCC),Neuroendocr ine carcinoma of lung (HCC) TAKE 1 CAPSULE BY MOUTH 1 TIME A DAY ON DAYS 10-14 OF A 28 DAY CYCLE (TOTAL DAILY DOSE OF 480 MG) 5 capsule 4 12/24/19 24 documented as of this encounter Discharge Disposition Disposition Code Departure Means Destination Discharge to home or self care documented in this encounter Plan of Treatment Not on file documented as of this encounter Procedures Procedure Name Priority Date/Time Associated Diagnosis Comments CT CHEST ABDOMEN PELVIS W CONTRAST Schedule Routine, Read Routine (OP Routine) 12/22/2023 11:37 AM CDT 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) documented in this encounter Administered Medications Inactive Administered Medications - up to 3 most recent administrations Medication Order MAR Action Action Date Dose Rate Site ioversoL (OPTIRAY 350) syringe 125 mL 125 mL, intravenous, Once in imaging, contrast, Starting on Thu12/22/23 at 1120, For 1 dose Contrast Given 12/22/2023 11:21 AM CDT 119 mL documented in this encounter Orders Medications Ordered That Vikram ht Not Have Been Administered Count Last Ordered Date First Ordered Date ioversoL (OPTIRAY 350) syringe 125 mL 1 10/2023 documented in this encounter Care Teams Instruction Dean Relationship Specialty Start Date End Date Clara Stanley PA [address] [place] [address] PCP - General Nurse Practitioner 04/05/19 Jasper Canchola MD [address] [place] [address] Surgeon Thoracic Surgery 05/11/19 Aleixs Lopez MD [address] [address] Manager Plant Pulmonary Disease 05/11/19 Kip Del Rio MD [address] [facility] [address] [place] [address] Medical Oncologist/Multimedia Services Manager Hematology and Oncology 05/11/19 Jacob Flynn MD [address] [facility] [address] [place] [address] Radiation Oncologist Radiation Oncology 05/25/19 Renetta Ballesteros NP [address] [facility] [address] [place] [address] Nurse Practitioner Radiation Oncology 06/11/22 documented as of this encounter
--- OUTSIDE RECORDS SUMMARY | 2024-03-02 03:41 | XMS_ITS | Encounter Summary ---
Author Organization [facility] Address [address] [place] [address] Phone Care Team Providers Care Pin Drafting Machine Operator Name Role Phone Clara Stanley Primary Care Provider + Jasper Canchola MD Unavailable Alexis Lopez MD Unavailable Kip Del Rio MD Unavailable Jacob Flynn MD Unavailable [phone] Renetta Ballesteros NP Unavailable Encounter Details Date Type Department Care Team (Late st Contact Info) Description 02/18/2024 Orders Only [facility] Oncology [address] [facility] Floor [address] [place] [id number] Rick Sánchez, [facility] Social History Tobacco Use Types [...] Frequency of Binge Drinking Not on file 10/1 03/2020 Personal Safety Answer Date Recorded Have you ever been in or are you currently in a harmful physical or emotional relationship or is someone making you feel afraid or unsafe? 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 on file Not on file documented as of this encounter Plan of Treatment Not on file documented as of this encounter Visit Diagnoses Not on filedocumented in this encounter Care Teams Pin Drafting Machine Operator Relationship Specialty Start Date End Date Clara Stanley PA [address] [place] [address] PCP - General Nurse Practitioner 04/05/19 Jasper Canchola MD [address] [place] [address] Surgeon Thoracic Surgery 05/11/19 Alexis Lopez MD [address] [address] Java Development Manager Pulmonary Disease 05/11/19 Kip Del Rio MD [address] [place] [address] Medical Oncologist/Renal Dietitian Hematology and Oncology 05/11/19 Jacob Flynn MD [address] [place] [address] Radiation Oncologist Radiation Oncology 05/25/19 Renetta Ballesteros NP [address] [place] [address] Nurse Practitioner Radiation Oncology 06/11/22 documented as of this encounter
--- OUTSIDE RECORDS SUMMARY | 2024-03-02 03:41 | XMS_ITS | Encounter Summary ---
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) Procedures CT Chest Abdomen Pelvis W Contrast Kip Del Rio MD [address] [facility] [address] [place] [address] Phone: tel: fax: [address] [phone] Referral ID Status Reason Start Date Expiration Date Visits Re quested Visits Authorized [id number] Closed 01/20/2024 02/18/2025 1 1 DESIGN DRAFTSPERSON Reason for Visit * Diagnostic Imaging (Routine) - Closed Specialty Diagnoses / Procedures Referred By Contac t Referred To Contact Radiology Diagnoses 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) Procedures CT Chest Abdomen Pelvis W Contrast Kip Del Rio MD [address] [facility] [address] [place] [address] Phone: tel: fax: [address] [phone] Referral ID Status Reason Start Date Expiration Date Visits Re quested Visits Authorized [id number] Closed 01/20/2024 02/18/2025 1 1 Encounter Details Date Type Department Care Team (Latest Contact Info) Description 02/16/2024 4:[address] DESIGN DRAFTSPERSON - 02/16/2024 11:[address] DESIGN DRAFTSPERSON Hospital Encounter [facility] [address] [place] [id number] Secondary malignant neoplasm of mediastinal lymph node [...] on file Legal Sex Male 1:[address] DESIGN DRAFTSPERSON Gender Identity Not on file Sexual Orientation [...] Read Routine (OP Routine) 02/16/2024 6:[address] DESIGN DRAFTSPERSON 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 ??No significant change in posttreatment changes [...] Vikki Way M.D. Narrative 02/17/2024 12:[address] DESIGN DRAFTSPERSON EXAMINATION: ??Computed tomography of the chest, abdomen [...] Vikki Way M.D. 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) documented in this encounter Administered Medications Inactive Administered Medications - up to 3 most recent administrations Medication Order MAR Action Action Date Dose Rate Site ioversoL (OPTIRAY 350) syringe 100 mL 100 mL, intravenous, Once in imaging, contrast, Starting on Thu02/16/24 at 1817, For 1 dose Contrast Given 02/16/2024 6:[address] DESIGN DRAFTSPERSON 95 mL documented in this encounter Orders Medications Ordered That Vikram ht Not Have Been Administered Count Last Ordered Date First Ordered Date ioversoL (OPTIRAY 350) syringe 100 mL 1 05/2023 documented in this encounter Care Teams Control Operator Relationship Specialty Start Date End Date Clara Stanley PA [facility] [place] [address] PCP - General Nurse Practitioner 04/05/19 Jasper Canchola MD [facility] [place] [address] Surgeon Thoracic Surgery 05/11/19 Alexis Lopez MD [address] [address] Rn Ante Partum Pulmonary Disease 05/11/19 Kip Del Rio MD [address] [place] [address] Medical Oncologist/Public Address System Mechanic Hematology and Oncology 05/11/19 Jacob Flynn MD [address] [place] [address] Radiation Oncologist Radiation Oncology 05/25/19 Renetta Ballesteros NP [address] [place] [address] Nurse Practitioner Radiation Oncology 06/11/22 documented as of this encounter
--- OUTSIDE RECORDS SUMMARY | 2024-03-02 03:42 | XMS_ITS | Encounter Summary ---
Author Organization [facility] Address [address] [place] [address] Phone Care Team Providers Care Unit Controller Name Role Phone Clara Stanley Primary Care Provider + Jasper Canchola MD Unavailable Alexis Lopez MD Unavailable Kip Del Rio MD Unavailable [phone] Jacob Flynn MD Unavailable Renetta Ballesteros NP Unavailable Encounter Details Date Type Department Care Team (Late st Contact Info) Description 10/02/2023 Telephone [facility] Oncology [address] [facility] Advanced Medicine 7th [place] [address] [place] [address] Imelda De Leon, KAMILA Social [...] file 12/14 Personal Safety Answer Date Recorded Getting School Help Needed Not on file 03/07 Sex and Gender Information Value Date Recorded Sex Assigned at Not on file 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 Kulkarni a message informing him that the CT guided biopsy of the liver is scheduled for 10/16/23 at 7:45 am arrival. I sent the below message to him in [facility]. He will see Dr. Del Rio for follow-up on 10/22/23. Jose Ames, We have you scheduled for a CT guided biopsy of the liver on Monday, October 16, 2023. Arrival will be 7:45am at [facility] Admitting Office. This is located inside [facility] at [address] [place] [address]. [phone]. Park in the [facility], walk over in th walkway and report toOutpatient Admitting at 7:45am. Please see the instructions below and call our office at [phone] to confirm this appointment. CT PRE-BIOPSY INSTRUCTIONS [facility] 1) Do not eat or drink anything 6 hours before the appointment You can take your normal medicationswith sips of water. 2) Pack a small overnight bag (in case observation/admission is needed). 3) Have a regional dedicated truck driver (to and from the procedure) that will stay with you overnight after the procedure to monitor for bleeding/symptoms post-procedure. 4) Expect to be here for at least 4 hours from start of procedure to end of recovery period. Imelda Ramires [phone] documented in this encounter Plan of Treatment Not on file documented as of this encounter Visit Diagnoses Not on filedocumented in this encounter Care Teams Unit Controller Relationship Specialty Start Date End Date Clara Stanley PA [address] [place] [address] PCP - General Nurse Practitioner 04/05/19 Jasper Canchola MD [address] [place] [address] Surgeon Thoracic Surgery 05/11/19 Alexis Lopez MD [address] [address] Budget Clerk Pulmonary Disease 05/11/19 Kip Del Rio MD [address] [place] [address] Medical Oncologist/Crab Butcher Hematology and Oncology 05/11/19 Jacob Flynn MD [address] [place] [address] Radiation Oncologist Radiation Oncology 05/25/19 Renetta Ballesteros NP [address] [place] [address] Nurse Practitioner Radiation Oncology 06/11/22 documented as of this encounter
--- OUTSIDE RECORDS SUMMARY | 2024-03-02 03:42 | XMS_ITS | Encounter Summary ---
Author Organization [facility] Address [address] [place] [address] Phone Care Team Providers Care It Compliance Analyst Name Role Phone Clara Stanley Primary Care Provider + Jasper Canchola MD Unavailable Alexis Lopez MD Unavailable Kip Del Rio MD Unavailable Jacob Flynn MD Unavailable Renetta Ballesteros NP Unavailable Encounter Details Date Type Department Care Team (Late st Contact Info) Description 10/21/2023 Orders Only [facility] Oncology [address] [facility] Advanced Medicine 7th [place] [address] [place] [id number] Deb Bryant [facility] Social History [...] on file 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 Gender Identity Not on file Sexual Orientation Straight 09/22/2019 8: 21 PM CDT 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 on file Not on file documented as of this encounter Plan of Treatment Not on file documented as of this encounter Visit Diagnoses Not on filedocumented in this encounter Care Teams It Compliance Analyst Relationship Specialty Start Date End Date Clara Stanley PA [address] [place] [address] PCP - General Nurse Practitioner 04/05/19 Jasper Canchola MD [address] [place] [address] Surgeon Thoracic Surgery 05/11/19 Alexis Lopez MD [address] [address] Rubber Stamp Maker Pulmonary Disease 05/11/19 Kip Del Rio MD [address] [place] [address] Medical Oncologist/Administrative Underwriter Hematology and Oncology 05/11/19 Jacob Flynn MD [address] [place] [address] Radiation Oncologist Radiation Oncology 05/25/19 Renetta Ballesteros NP [address] [place] [address] Nurse Practitioner Radiation Oncology 06/11/22 documented as of this encounter
--- OUTSIDE RECORDS SUMMARY | 2024-03-02 03:42 | XMS_ITS | Encounter Summary ---
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 (HCC) Liver lesion Procedures US Guided Biopsy Liver Consult to Radiology for Biopsy Kip Del Rio MD [address] [facility] [address] [place] [address] Phone: tel: fax: [address] [phone] Referral ID Status Reason Start Date Expiration Date Visits Re quested Visits Authorized [id number] Closed 10/01/2023 10/30/2024 1 1 Reason for Visit * Diagnostic Imaging (Routine) - Closed Specialty Diagnoses / Procedures Referred By Contac t Referred To Contact Radiology Diagnoses Primary cancer of right lower lobe of lung (HCC) Liver lesion Procedures US Guided Biopsy Liver Consult to Radiology for Biopsy Kip Del Rio MD [address] [facility] [address] [place] [address] Phone: tel: fax: [address] [phone] Referral ID Status Reason Start Date Expiration Date Visits Re quested Visits Authorized [id number] Closed 10/01/2023 10/30/2024 1 1 Encounter Details Date Type Department Care Team (Latest Contact Info) Description 10/16/2023 7:36 AM CDT - 10/16/2023 11:59 PM CDT Hospital Encounter [facility] Radiology [address] [place] [address] Primary cancer of right lower lobe of lung (HCC); Liver lesion Discharge Disposition: Discharge to home or self [...] on file Legal 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 Gender Identity Not on file Sexual Orientation Straight 09/22/2019 8: 21 PM CDT 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 on file Not on file documented as of this encounter Last Filed Vital Signs Vital Sign Reading Time Taken Comments Blood Pressure 152/84 10/16/2023 11:00 AM CDT Pulse 73 10/16/2023 11:15 AM CDT Temperature 36.4 ??C (97.5 ??F) 10/16/2023 7:54 AM CD T Respiratory Rate 16 10/16/2023 9:15 AM CDT Oxygen Saturation 99% 10/16/2023 11:15 AM CDT Inhaled Oxygen Concentration - - Weight 152 kg (335 lb) 10/16/2023 7:54 AM CDT Height 190.5 cm (6' 3 ) 10/16/2023 7:54 AM CDT Body Mass Index 41.87 10/16/2023 7:54 AM CDT documented in this encounter Discharge Instructions * Discharge Instructions* Imelda Thompson PA - 10/16/2023 9:08 AM CDT Radiology Biopsy Discharge Instructions Procedure: Biopsy of Liver Lesion Activity - Please stay with a responsible adult today. - No driving or operating heavy machinery for 24 hours. - Rest today, and then increase activities tomorrow as tolerated. - No lifting more than 5 pounds for 24 hours. Diet - No restrictions, resume previous diet - Drink plenty of fluids Other: Medications - Please resume blood thinning medication as follows: N/A -- patient is not taking/resuming anticoagulation. - Resume all other pre-procedure medications as instructed by your physician Wound and Skin Care - Keep area clean and dry for 24 hours. May remove band aids/dressing in 24 hours. - May apply ice to the procedure site for first 24 hours, 20 minutes on then off for hours. What to Expect - Mild soreness at the puncture site is expected for up to 24 hours. If pain persists or worsens, contact your primary physician. If pain or discomfort is severe, return to the Emergency Room. When to call your Doctor Please call your primary physician for any of the following: Pain lasting longer than 24 hours Hematoma/large bruise at puncture site Bleeding/drainage from the puncture site If you have severe abdominal or back pain, go to the nearest emergency room. Be sure to let them know you had an abdominal biopsy recently performed. Follow-up -Please follow-up with your physician as instructed. -All biopsy results are sent to the physician who ordered the exam and will be available in 5 to 7 days. For any questions about these instructions or symptoms following your biopsy: Biopsy nurse coordinator phone number (during business hours): [phone] / [phone] For concerns after hours, please call your primary physician's office/after- hours exchange. For urgent concerns, return to the emergency department for evaluation. documented in this encounter Medications at Time of Discharge amLODIPine (NORVASC) 10 mg tabletIndications: hypertension Take 1 tablet (10 mg total) by mouth every morning 04/10/2019 ascorbic acid (VITAMIN C) 1,000 mg tablet Take 1 tablet (1,000 mg total) by mouth daily chlorthalidone (HYGROTON) 25 mg tablet 09/29/2022 cholecalciferol (VITAMIN D-3) 50,000 unit capsule Take 1 capsule (50,000 Units total) by mouth fluticasone-umecli din-vilanter (Trelegy Ellipta) 100-62.5-25 mcg inhaler Inhale 1 puff daily Rinse mouth with water after use, do not swallow 60 each 08/28/2023 multivitamin capsule Take 1 capsule by mouth daily pravastatin (PRAVACHOL) 40 mg tablet 10/17/2022 albuterol HFA (PROVENTIL HFA,VENTOLIN HFA,PROAIR HFA) 90 mcg/actuation inhalerIndications :Mild intermittent asthma without complication Inhale 2 puffs every 6 (six) hours as needed for wheezing Fill per patient's formulary 1 each 02/26/2022 4 montelukast (SINGULAIR) 10 mg tabletIndications: Mild intermittent asthma without complication TAKE (1) TABLET BY MOUTH ONCE DAILY IN THE EVENING. *VIAL* 90 tablet 06/17/[address] (PROTONIX) 40 mg EC tabletIndications: Treatment of Non-Bleeding Gastric Disorder Take 1 tablet (40 mg total) by mouth daily 30 tablet 2 08/26/2023 4 roflumilast (DALIRESP) 500 mcg tabletIndications: Prevention of Bronchospasm with Chronic Bronchitis Take 1 tablet (500 mcg total) by mouth daily 30 tablet 3 09/19/2022 4 semaglutide (Wegovy) 0.25 mg/0.5 mL auto-injector Inject 0.5 mL (0.25 mg total) under the skin once a week 09/22/2023 documented as of this encounter Discharge Disposition Disposition Code Departure Means Destination Discharge to home or self care documented in this encounter Progress Notes * Vicki Graff RN - 10/16/2023 11:19 AM CDT Patient discharge instructions reviewed at the bedside. Patient verbalizes understanding of home and follow up care. Patient left department to home with family care at this time. 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 * Pre-Procedure Note - Imelda Thompson PA - 10/16/2023 9:15 AM CDT Images from the original note were not included. 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 Have you had a problem with easy bleeding or bruising within the last 30 days? No Have you taken any blood thinners within the last 30 days? Include last dose taken. No PMH: Past Medical History: Diagnosis Date LEIDA (acute kidney injury) (HCC) Asthma Cancer (CMS/HCC) (HCC) Carcinoid tumor of lung right lung Chronic headaches 03/2019 IIH (idiopathic intracranial hypertension) Hypertension Hyponatremia IIH (idiopathic intracranial hypertension) LEONOR (obstructive sleep apnea) 12/02/2019 History of Sedation/Anesthesia Complications: No History of Difficult Airway: No PSH Past Surgical History: Procedure Laterality Date ABDOMINAL SURGERY APPENDECTOMY BRONCHOSCOPY 05/30/2019 COLONOSCOPY 2018 COLONOSCOPY ESOPHAGOGASTRODUODENOSCOPY 04/2019 LUMBAR PUNCTURE 04/03/2019 MEDIASTINOSCOPY 05/19/2019 Cervical Mediastinoscopy THORACOTOMY 05/26/2019 THORACOTOMY LOBECTOMY / lymph node disection (Right) TONSILLECTOMY Social History: Social History Tobacco Use Smoking status: Never Smokeless tobacco: Never Substance and Sexual Activity Drug use: Never Sexual activity: Not on file Alcohol Use: Unknown (12/24/2020) AUDIT-C Frequency of Alcohol Consumption: 2-3 times a week Average Number of Drinks: 1 or 2 Frequency of Binge Drinking: Not on file Family History: Family History Problem Relation Age of Onset Cancer Mother Heart disease Father Cancer Father Other (lung cancer) Sister Anesthesia problems Neg Hx Current Meds: Current Outpatient Medications: albuterol HFA (PROVENTIL HFA,VENTOLIN HFA,PROAIR HFA) 90 mcg/actuation inhaler, Inhale 2 puffs every 6 (six) hours as needed for wheezing Fill per patient's formulary, Disp: 1 each, Rfl: 11 amLODIPine (NORVASC) 10 mg tablet, Take 1 tablet (10 mg total) by mouth every morning, Disp: , Rfl: ascorbic acid (VITAMIN C) 1,000 mg tablet, Take 1 tablet (1,000 mg total) by mouth daily, Disp: , Rfl: chlorthalidone (HYGROTON) 25 mg tablet, , Disp: , Rfl: cholecalciferol (VITAMIN D-3) 50,000 unit capsule, Take 1 capsule (50,000 Units total) by mouth, Disp: , Rfl: fexofenadine (CHERELLE) 180 mg tablet, Take 1 tablet (180 mg total) by mouth daily, Disp: 30 tablet,Rfl: 11 fluticasone propionate (FLONASE) 50 mcg/actuation nasal spray, Administer 2 sprays into each nostril daily, Disp: 16 g, Rfl: 6 ecnghliddev-fklormtol-vdcpvanu (Trelegy Ellipta) 100-62.5-25 mcg inhaler, Inhale 1 puff daily [place] with water after use, do not swallow, Disp: 60 each, Rfl: 11 montelukast (SINGULAIR) 10 mg tablet, TAKE (1) TABLET BY MOUTH ONCE DAILY IN THE EVENING. *VIAL*, Disp: 90 tablet, Rfl: 0 multivitamin capsule, Take 1 capsule by mouth daily, Disp: , Rfl: nitroglycerin (NITROSTAT) 0.4 mg SL tablet, Place 1 tablet (0.4 mg total) under the tongue every 5 (five) minutes as needed, Disp: , Rfl: pantoprazole DR (PROTONIX) 40 mg EC tablet, Take 1 tablet (40 mg total) by mouth daily, Disp: 30 tablet, Rfl: 2 pravastatin (PRAVACHOL) 40 mg tablet, , Disp: , Rfl: roflumilast (DALIRESP) 500 mcg tablet, Take 1 tablet (500 mcg total) by mouth daily, Disp: 30 tablet, Rfl: 3 semaglutide (Wegovy) 0.25 mg/0.5 mL auto-injector, Inject 0.5 mL (0.25 mg total) under the skin once a week (Patient not taking: Reported on 09/23/2023), Disp: , Rfl: Current Facility-Administered Medications: Carrier Fluids for Secondary Infusion - 0.9% Sodium Chloride, 30 mL, intravenous, PRN, Thompson, Imelda P., PA sodium chloride 0.9% flush 0.5-20 mL, 0.5-20 mL, intra-catheter, Q8H MERLENE, Thompson, Imelda P., PA sodium chloride 0.9% flush 0.5-20 mL, 0.5-20 mL, intra-catheter, PRN, Thompson, Imelda P., PA sodium chloride 0.9% flush 10-20 mL, 10-20 mL, intra-catheter, PRN, Thompson, Imelda P., PA sodium chloride 0.9% flush 5-10 mL, 5-10 mL, intra-catheter, Q12H MERLENE, Thompson, Imelda P., PA sodium chloride 0.9% infusion, 30 mL/hr, intravenous, Continuous, Thompson, Imelda P., PA Home Meds: HOME MEDICATIONS : albuterol HFA (PROVENTIL HFA,VENTOLIN HFA,PROAIR HFA) 90 mcg/actuation inhaler amLODIPine (NORVASC) 10 mg tablet ascorbic acid (VITAMIN C) 1,000 mg tablet chlorthalidone (HYGROTON) 25 mg tablet cholecalciferol (VITAMIN D-3) 50,000 unit capsule fexofenadine (CHERELLE) 180 mg tablet fluticasone propionate (FLONASE) 50 mcg/actuation nasal spray jdzngtaxgjx-zrnfixhei-kveqdzeu (Trelegy Ellipta) 100-62.5-25 mcg inhaler montelukast (SINGULAIR) 10 mg tablet multivitamin capsule nitroglycerin (NITROSTAT) 0.4 mg SL tablet pantoprazole DR (PROTONIX) 40 mg EC tablet pravastatin (PRAVACHOL) 40 mg tablet roflumilast (DALIRESP) 500 mcg tablet semaglutide (Wegovy) 0.25 mg/0.5 mL auto-injector Allergies: No Known Allergies REVIEW OF SYSTEMS: Review of systems per HPI and otherwise all other systems are negative Vitals: Vitals: 10/16/23 0754 BP: 147/73 Pulse: 80 Resp: 20 Temp: 36.4 ??C (97.5 ??F) TempSrc: Temporal SpO2: 95% Weight: (!) 152 kg (335 lb) Height: 190.5 cm (6' 3 ) Pertinent Labs: Imaging MR abd/pelvis PERTINENT PHYSICAL EXAM: Constitutional: alert and oriented x3 and no acute distress Lungs: Normal expansion. Clear to auscultation. No rales, rhonchi, or wheezing., Breath sounds: diminished breath sounds- lower right and absent Heart: Heart sounds are normal. Regular rate and rhythm without murmur, gallop or rub. Abdomen: Soft, non-tender, normal bowel sounds; no bruits, organomegaly or masses. Assessment:58 M w liver lesion in the setting of treated carcinoid tumor of right lower lobe -OK to proceed with Ultrasound guided biopsy of the hepatic lesion with local/minimal anesthesia -Monitor in PACU for 2 hours post biopsy -DC home with special client bus driver once cleared by clinical team Airway Exam: normal ASA Classification:Class 3: Patient with severe systemic disease Sedation Plan: Min Sedation PO status: Last PO: NPO since midnight Cosigned by Momo Garcia MD at 10/16/2023 8:26 AM CDT documented in this encounter Plan of Treatment Not on file documented as of this encounter Procedures Procedure Name Priority Date/Time Associated Diagnosis Comments US GUIDED BIOPSY LIVER Schedule Routine, Read Routine (OP Routine) 10/16/2023 9:18 AM CDT 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 Successful ultrasound-guided core needle biopsy of a hepatic segment 5 lesion. 2. Please see separate Surgical Pathology results for final interpretation. Dictated by: Misty Baum M.D. The radiology attending physician has personally reviewed this study, and had reviewed and/or edited this written report and agrees with it. Electronically signed by: Momo Garcia M.D. Narrative 10/16/2023 2:43 PM CDT EXAMINATION: ULTRASOUND-GUIDED CORE BIOPSY HISTORY: ??58-year-old with metastatic right lower lobe carcinoid tumor status post lobectomy found to have multiple new enhancing liver lesions on MRI 09/24/2023. COMPARISON: ??MRI 09/24/2023, CT 09/23/2023 FINDINGS: Initial sonographic images demonstrate multiple hypoechoic lesions in the right hemiliver. ??A 1.1 x 1.1 cm hypoechoic lesion in hepatic segment 5 was selected for biopsy. TECHNIQUE: ??The procedure for ultrasound-guided core biopsy ??was explained to and discussed with the patient. Risks were explained to include, but not be limited to, hemorrhage, infection, injury to adjacent organs, non-diagnostic specimen and adverse reaction to medications administered. The patient voiced understanding and wished to proceed and signed the consent form. PROCEDURAL SEDATION: Procedural sedation was administered under the attending physician's direction and continuous monitoring by a trained nurse specialist who was independent from those actually performing the procedure. ??Total monitored sedation time was 15 minutes. CORE BIOPSY: ??The lesion was located in segment 5 and measured 1.1 cm x 1.1 cm. An appropriate site was localized for core biopsy. The patient's overlying skin was prepped and draped in the usual sterile fashion. Local anesthesia was achieved via subcutaneous and deep administration with 12 mL of Lidocaine 1%. Under realtime ultrasound guidance, 4 passes were made with an 18 gauge BioPince core biopsy needle, 1.3 cm throw, with the use of a 17 gauge introducer needle. The core specimens were placed in formalin and submitted to the utility driver service for delivery to Surgical Pathology. The biopsy tract was embolized with ??Gelfoam pledgets. The patient's skin was cleaned and dressed. The patient tolerated the entire procedure well without immediate complications. Dr. Momo Garcia M.D., the attending radiologist, was present from the beginning to the end of the procedure. Drs. Misty Baum and Radha performed the biopsy. Procedure Note Momo Garcia MD - 10/16/2023 EXAMINATION: ULTRASOUND-GUIDED CORE BIOPSY HISTORY: 58-year-old with metastatic right lower lobe carcinoid tumor status post lobectomy found to have multiple new enhancing liver lesions on MRI 09/24/2023. COMPARISON: MRI 09/24/2023, CT 09/23/2023 FINDINGS: Initial sonographic images demonstrate multiple hypoechoic lesions in the right hemiliver. A 1.1 x 1.1 cm hypoechoic lesion in hepatic segment 5 was selected for biopsy. TECHNIQUE: The procedure for ultrasound-guided core biopsy was explained to and discussed with the patient. Risks were explained to include, but not be limited to, hemorrhage, infection, injury to adjacent organs, non-diagnostic specimen and adverse reaction to medications administered. The patient voiced understanding and wished to proceed and signed the consent form. PROCEDURAL SEDATION: Procedural sedation was administered under the attending physician's direction and continuous monitoring by a trained nurse specialist who was independent from those actually performing the procedure. Total monitored sedation time was 15 minutes. CORE BIOPSY: The lesion was located in segment 5 and measured 1.1 cm x 1.1 cm. An appropriate site was localized for core biopsy. The patient's overlying skin was prepped and draped in the usual sterile fashion. Local anesthesia was achieved via subcutaneous and deep administration with 12 mL of Lidocaine 1%. Under realtime ultrasound guidance, 4 passes were made with an 18 gauge BioPince core biopsy needle, 1.3 cm throw, with the use of a 17 gauge introducer needle. The core specimens were placed in formalin and submitted to the utility driver service for delivery to Surgical Pathology. The biopsy tract was embolized with Gelfoam pledgets. The patient's skin was cleaned and dressed. The patient tolerated the entire procedure well without immediate complications. Dr. Momo Garcia M.D., the attending radiologist, was present from the beginning to the end of the procedure. Drs. Misty Baum and Radha performed the biopsy. IMPRESSION: 1. Successful ultrasound-guided core needle biopsy of a hepatic segment 5 lesion. 2. Please see separate Surgical Pathology results for final interpretation. Dictated by: Misty Baum M.D. The radiology attending physician has personally reviewed this study, and had reviewed and/or edited this written report and agrees with it. Electronically signed by: Momo Garcia M.D. Kip Del Rio MD [facility] US PROCEDURES Final Re sult * Surgical pathology (10/16/2023 8:33 AM CDT) Tissue (Liver, Biopsy, Needle Tumor) 10/16/2023 8:33 AM CDT Narrative PATHOLOGY [facility] - 10/20/2023 3:12 PM CDT EPIC results best viewed via link to PDF [facility] [place] [address] Note to Patients: This report may contain a detailed description of human tissue sent by a health care provider to the laboratory for pathologic evaluation. The content of this report is essential for diagnosis and may provide important critical findings. This information may be unfamiliar to patients to review without a medical professional present. It is advised that the patient review this report in the presence of a health care provider who can answer questions and explain the details. SURGICAL PATHOLOGY REPORT FINAL Patient Name: ?? MP BULLOCK Gender: ??M : ??1965 (Age: 58) Address: ??[address] [place] [address] ??[id number] Hospital #: ??[id number] Taken:10/16/2023 Received:10/16/2023 Reported: 10/20/2023 Patient Type: [facility] Ancillary ?? Service: UNKNOWN [facility] Physician(s): ??Tara Ramon PA Diagnosis: Liver, core needle biopsy ? - Metastatic well-differentiated neuroendocrine tumor, WHO grade 2 (atypical carcinoid), consistent with the patients's known primary ? - Ki-67 tumor proliferative index: 8.1% toa/10/20/2023 15:03 By this signature, I attest that the above diagnosis is based upon my personal examination of the slides(and/or other material indicated in the diagnosis). Gordon Billings M.D. Report Electronically Reviewed and Signed Out By ??Gordon Billings M.D. 10/20/2023 15:12:27 Microscopic Description and Comment: Microscopic examination substantiates the above cited diagnosis. ??Immunohistochemical stains, with appropriate controls are performed. ??The tumor cells are positive for cam 5.2, synaptophysin and chromogranin. ??The immunostaining pattern delineates a neuroendocrine differentiation and supports the diagnosis. ??Ki-67 highlights a proliferation index of 8.1% (41/504 tumor cells counted, manual morphometric method). Gonzalo Hagen M.D. History: The patient is a 58-year-old man presenting with primary cancer of right lower lobe of lung; liver lesion. ??Operative procedure: ??Liver lesion biopsy. Specimen(s) Received: A: Liver lesion cores in formalin Gross Description: Received in formalin, labeled with the patient? ? s identifiers and liver lesion cores in formalin and consists of four brown and white-mendoza core(s) of soft tissue measuring 0.8-1.3 cm each in length x 0.1 cm in diameter. ??Labeled A1-A2. Jar 0. ?? sxst/10/16/2023 15:51 PA(s): Jadyn Barbour By this signature, I attest that the above diagnosis is based upon my personal examination of the slides(and/or other material). Addenda/Procedures The performance characteristics of some immunohistochemical stains, fluorescence in-situ hybridization tests and immunophenotyping by flow cytometry cited in this report (if any) were determined by the Surgical Pathology and Flow Cytometry Departments at [facility] as part of an ongoing quality assurance coordinator program and in compliance with federally mandated regulations drawn from the Clinical Laboratory Improvement Act of 1988 (CLIA '88). ??Some of these tests rely on the use of analyte specific reagents and are subject to specific labeling requirements by the US Food and Drug Administration. ??Such diagnostic tests may only be performed in a facility that is certified by the Department of Health and Human Services as a high complexity laboratory under CLIA '88. ??The FDA has determined that such clearance or approval is not necessary. ??This test is used for clinical purposes. ??It should not be regarded as investigational or for research. ??Nevertheless, federal rules concerning the medical use of analyte specific reagents require that the following disclaimer be attached to the report: This test was developed and its performance characteristics determined by the Surgical Pathology and Flow Cytometry Departments of [facility]. ??It has not been cleared or approved by the U. S. Food and Drug Administration. IMAGES AND SCANNED DOCUMENTS, IF INCLUDED, ONLY VIEWABLE IN PDF VERSION OF REPORT us Kip Del Rio MD LAB PATHOLOGY ORDERABLES F inal Result PATHOLOGY [facility] 3rd Floor [place], [place] [phone] documented in this encounter Visit Diagnoses Diagnosis Primary cancer of right lower lobe of lung (HCC) Liver lesion Other specified disorders of liver documented in this encounter Administered Medications Inactive Administered Medications - up to 3 most recent administrations Medication Order MAR Action Action Date Dose Rate Site fentaNYL (SUBLIMAZE) preservative free injection intravenous, As needed, Starting on Thu10/16/23 at 0857, Intra-Op Given 10/16/2023 8:57 AM CDT 50 mcg lidocaine (PF) (XYLOCAINE) 10 mg/mL (1 %) preservative free injection As needed, Starting on Thu10/16/23 at 0859, Intra-Procedure (IR), Indications: Administration of Local AnesthesiaIndications:Ad ministration of Local Anesthesia Given 10/16/2023 8:59 AM CDT 10 mL Abdominal Tissue lidocaine (PF) (XYLOCAINE) 10 mg/mL (1 %) preservative free injection As needed, Starting on Thu10/16/23 at 0901, Intra-Procedure (IR), Indications: Administration of Local AnesthesiaIndications:Ad ministration of Local Anesthesia Given 10/16/2023 9:01 AM CDT 2 mL midazolam (VERSED) 1 mg/mL injection As needed, Starting on Thu10/16/23 at 0857, Intra-Op Given 10/16/2023 8:57 AM CDT 1 mg sodium chloride 0.9% flush 0.5-20 mL 0.5-20 mL, intra-catheter, As needed, line care, Starting on Thu10/16/23 at 0750, Pre-Procedure (IR), Flush volume based on line type and size. Flush before and after each use. Given 10/16/2023 8:03 AM CDT 10 mL sodium chloride 0.9% infusion 30 mL/hr, intravenous, Continuous, Starting on Thu10/16/23 at 0830, Pre-Procedure (IR) New Bag 10/16/2023 8:02 AM CDT 30 mL/hr 30 mL/hr documented in this encounter Orders Medications Ordered That Vikram ht Not Have Been Administered Count Last Ordered Date First Ordered Date Carrier Fluids for Secondary Infusion - 0.9% Sodium Chloride 1 10/16/2023 sodium chloride 0.9% flush 0.5-20 mL 04/2023 sodium chloride 0.9% flush 10-20 mL 1 10/15 sodium chloride 0.9% flush 5-10 mL 1 2023 documented in this encounter Care Teams Pipe Buffer Relationship Specialty Start Date End Date Clara Stanley PA [address] [place] [address] PCP - General Nurse Practitioner 04/05/19 Jasper Canchola MD [address] [place] [address] Surgeon Thoracic Surgery 05/11/19 Alexis Lopez MD [address] [address] Pit Recorder Pulmonary Disease 05/11/19 Kip Del Rio MD [address] [place] [address] Medical Oncologist/Benchroom Shop Optician Hematology and Oncology 05/11/19 Jacob Flynn MD [address] [place] [address] Radiation Oncologist Radiation Oncology 05/25/19 Renetta Ballesteros NP [address] [place] [address] Nurse Practitioner Radiation Oncology 06/11/22 documented as of this encounter
--- OUTSIDE RECORDS SUMMARY | 2024-03-02 03:42 | XMS_ITS | Encounter Summary ---
Author Organization [facility] Address [address] [place] [address] Phone Care Team Providers Care Aluminum Hydroxide Process Operator Name Role Phone Clara Stanley Primary Care Provider + Jasper Canchola MD Unavailable Alexis Lopez MD Unavailable [phone] Kip Del Rio MD Unavailable Jacob Flynn MD Unavailable [phone] Renetta Ballesteros NP Unavailable [phone] Encounter Details Date Type Department Care Team (Latest Contact Info) Description 10/07/2023 Orders Only [facility] Scanning, Provider Social History Tobacco Use Types Packs/Day Years [...] on file 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 Gender Identity Not on file Sexual Orientation Straight 09/22/2019 8: 21 PM CDT 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 on file Not on file documented as of this encounter Plan of Treatment Not on file documented as of this encounter Procedures Procedure Name Priority Date/Time Associated Diagnosis Comments SCAN - PATHOLOGY 10/07/2023 documented in this encounter Results * SCAN - PATHOLOGY (10/07/2023) Provider Scanning Final Result documented in this encounter Visit Diagnoses Not on filedocumented in this encounter Care Teams Aluminum Hydroxide Process Operator Relationship Specialty Start Date End Date Clara Stanley PA [address] [place] [address] PCP - General Nurse Practitioner 04/05/19 Jasper Canchola MD [address] [place] [address] Surgeon Thoracic Surgery 05/11/19 Alexis Lopez MD [address] [address] Weekend Caregiver Pulmonary Disease 05/11/19 Kip Del Rio MD [address] [place] [address] Medical Oncologist/Cotton Breeder Hematology and Oncology 05/11/19 Jacob Flynn MD [address] [place] [address] Radiation Oncologist Radiation Oncology 05/25/19 Renetta Ballesteros NP [address] [place] [address] Nurse Practitioner Radiation Oncology 06/11/22 documented as of this encounter
--- OUTSIDE RECORDS SUMMARY | 2024-03-02 03:42 | XMS_ITS | Encounter Summary ---
Author Organization [facility] Address [address] [place] [address] Care Team Providers Care Brown Sourer Name Role Phone Clara Stanley Primary Care Provider + Jasper Canchola MD Unavailable Alexis Lopez MD Unavailable Kip Del Rio MD Unavailable Jacob Flynn MD Unavailable Renetta Ballesteros NP Unavailable Encounter Details Date Type Department Care Team (Late st Contact Info) Description 06/25/2023 Telephone [facility] Advanced Medicine Radiation Oncology [address] 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 Indeterminate nodule has been there since at least 05/2022. This has grown over the last 2 scans. We cannot determine what it is at this point. Needs to be at least 1cm for PET and/or biopsy. Will move up next scan to 3 months. Informed patient happy to discuss any further questions. documented in this encounter Plan of Treatment Not on file documented as of this encounter Visit Diagnoses Not on filedocumented in this encounter Care Teams Brown Sourer Relationship Specialty Start Date End Date Clara Stanley PA [address] [place] [phone] PCP - General Nurse Practitioner 04/05/19 Jasper Canchola MD [address] [place] [place] [address] Surgeon Thoracic Surgery 05/11/19 Alexis Lopez MD [address] [place] [address] [place] [address] Fisher Dip Net Pulmonary Disease 05/11/19 [place] [address] [place] [address] [place] [address] Medical Oncologist/Manager Er Hematology and Oncology 05/11/19 Jacob Flynn MD [address] [facility] [address] [place], [place] [id number] Radiation Oncologist Radiation Oncology 05/25/19 Renetta Ballesteros NP [address] [facility] [address] [place] [address] Nurse Practitioner Radiation Oncology 06/11/22 documented as of this encounter
--- OUTSIDE RECORDS SUMMARY | 2024-03-02 03:42 | XMS_ITS | Encounter Summary ---
Author Organization [facility] Address [address] [place] [address] Phone Care Team Providers Care Coding Specialist Name Role Phone Clara Stanley Primary Care Provider + Jasper Canchola MD Unavailable Alexis Lopez MD Unavailable [phone] Kip Del Rio MD Unavailable [phone] Jacob Flynn MD Unavailable [phone] Renetta Ballesteros NP Unavailable Reason for Referral * Diagnostic Imaging (Routine) - Closed Specialty Diagnoses / Procedures Referred By Contac t Referred To Contact Radiology Diagnoses Primary cancer of right lower lobe of lung (HCC) Liver lesion Procedures US Guided Biopsy Liver Consult to Radiology for Biopsy Kip Del Rio MD [address] [facility] [address] [place] [address] Phone: tel: fax: [address] [address] Referral ID Status Reason Start Date Expiration Date Visits Re quested Visits Authorized [id number] Closed 10/01/2023 10/30/2024 1 1 Reason for Visit * Oncology (Routine) - Authorized Specialty Diagnoses / Procedures Referred By Contac t Referred To Contact Oncology Diagnoses Primary cancer of right lower lobe of lung (HCC) Jacob Flynn MD [address] [facility] [address] [place] [address] Phone: tel: fax: Kip Del Rio MD [address] [facility] [address] [place] [address] Phone: tel: fax: Referral ID Status Reason Start Date Expiration Date Visits Requested Visits Authorized [id number] Authorized Specialty Services Required 09/25/2023 03/15/2024 99 99 Encounter Details Date Type Department Care Team (Late st Contact Info) Description 10/01/2023 3:00 PM CDT Office Visit [facility] Oncology [address] 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 on file Not on file documented as of this encounter Last Filed Vital Signs Vital Sign Reading Time Taken Comments Blood Pressure 131/78 10/01/2023 2:48 PM CDT Pulse 78 10/01/2023 2:48 PM CDT Temperature 36.7 ??C (98.1 ??F) 10/01/2023 2:48 PM CD T Respiratory Rate 18 10/01/2023 2:48 PM CDT Oxygen Saturation 99% 10/01/2023 2:48 PM CDT Inhaled Oxygen Concentration - - Weight 154.1 kg (339 lb 12.8 oz) 10/01/2023 2:48 PM CDT Height - - Body Mass Index 41.36 09/23/2023 10:38 AM CDT documented in this encounter Progress Notes * Kavita Kenney MD - 10/01/2023 3:00 PM CDT Oncology Consult Note Reason for Consultation: Mr Kulkarni is here for consultation for 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 Disease progression to the right paratracheal lymph node - biopsy proven 2R lymph node on 12/24/2020 demonstrated neuroendocrine carcinoma Treatment: Right lower lobectomy and mediastinal lymph node dissection for excision of a T1cN2 neuroendocrine carcinoma on 05/26/2019. Radiation therapy to the subcarinal lymph node for a total of 6,000 cGy in 15 fractions, 01/31-02/21/2021. 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 In January 2011, he had biopsy proven high right paratracheal marcus recurrence and completed radiation therapy to the mediastinum, subcarinal lymph node, 60 Gy in 15 fx on 02/21/2021. The restaging scans in June 2013 showed a new small indeterminate 5 mm right omental nodule, with repeat scans in September 2023 with multiple new small and subtle arterially enhancing foci throughout the liver suspicious for metastatic disease. Currently being followed by radiation oncology, repeat abdomen MRI confirm the presence ofmultiple arterially enhancing, diffusion restricting, lesions throughout the left and right hemiliver in keeping with hepatic metastatic disease. Mr Kulkarni presents to clinic for evaluation of suspected recurrent metastatic disease, accompanied by his and daughter. Overall he is doing well, he denies any fever, chills, nausea, vomiting, rash, constipation or diarrhea, or abdominal pain. He reports intentional 20 pounds weight loss inthe last 2 months with diet, exercise and wegovy therapy. Past Medical History: - HTN - HLP - Obesity - LEONOR CPAP Past Surgical History: - Right lower lobectomy 05/2019 Appendectomy Social History: He denies an smoking or drug use, occasional alcohol use. Past Family History: Mother Non hodgkin lymphoma Father Prostate cancer No Known Allergies Current Outpatient Medications: amLODIPine [...] Units total) by mouth, Disp: , Rfl: nsbzlpkrkdw-dljxruikl-bqfrprfv (Trelegy Ellipta) 100-62.5-25 mcg inhaler, Inhale 1 puff daily [place] with water after use, do not swallow, Disp: 60 each, Rfl: 11 montelukast (SINGULAIR) 10 mg tablet, TAKE (1) TABLET BY MOUTH ONCE DAILY IN THE EVENING. *VIAL*, Disp: 90 tablet, Rfl: 0 multivitamin capsule, Take 1 capsule by mouth daily, Disp: , Rfl: pantoprazole DR (PROTONIX) 40 mg EC tablet, Take 1 tablet (40 mg total) by mouth daily, Disp: 30 tablet, Rfl: 2 pravastatin (PRAVACHOL) 40 mg tablet, , Disp: , Rfl: albuterol HFA (PROVENTIL HFA,VENTOLIN HFA,PROAIR HFA) 90 mcg/actuation inhaler, Inhale 2 puffs every 6 (six) hours as needed for wheezing Fill per patient's formulary, Disp: 1 each, Rfl: 11 fexofenadine (CHERELLE) 180 mg tablet, Take 1 tablet (180 mg total) by mouth daily, Disp: 30 tablet,Rfl: 11 fluticasone propionate (FLONASE) 50 mcg/actuation nasal spray, Administer 2 sprays into each nostril daily, Disp: 16 g, Rfl: 6 nitroglycerin (NITROSTAT) 0.4 mg SL tablet, Place 1 tablet (0.4 mg total) under the tongue every 5 (five) minutes as needed, Disp: , Rfl: roflumilast (DALIRESP) 500 mcg [...] other systems reviewed and negative. Performance Status: 0 Objective Vitals: Most Recent : No data recorded Physical Exam: General: Well-appearing, in no acute distress. HEENT: Sclera anicteric, no palor, mucous membranes moist. Lymphatics: No cervical or supraclavicular adenopathy. Chest: Clear to auscultation bilaterally. Heart: Regular rate and rhythm. No murmur, rub, or gallop. Abdomen: Soft, non-tender, non-tender. Extremities: No edema, clubbing, or cyanosis noted. Skin: No rashes or bruises. Neurologic: Alert, speech normal, no gross motor or sensory deficits noted. Psychiatric exam: Appropriate affect Radiology: MRI abdomen 09/25/23 Multiple arterially enhancing, diffusion restricting, lesions throughout the left and right hemiliver in keeping with hepatic metastatic disease. CT C/A/P 09/23/23 1. Multiple new small and subtle arterially enhancing foci throughout the liver, which are suspicious for metastatic disease. Further evaluation and characterization of extent is recommended with a dedicated liver MR. 2. Small right lower quadrant omental nodule is indeterminate. Recommend attention on follow-up imaging. CT C/A/P 12/2022 1. Indeterminate 5 mm right omental nodule is slightly increased in size, and could represent a metastasis. Given the small size recommend follow up CT in 3 months as biopsy would not be feasible andthis nodule is too small to accurately characterize with PET/CT. 2. No evidence of disease progression in the chest. Unchanged 9 mm right paratracheal node. Pathology: Right lower lobectomy 05/26/2019 A. Lymph node, station 8, excision - No evidence of malignancy in one lymph node (0/1) B. Lymph node, station 8 B, excision - No evidence of malignancy in one lymph node (0/1) C. Lymph node, station 12, excision - No evidence of malignancy in one lymph node (0/1) D. Lymph node, station 11, excision - No evidence of malignancy in one lymph node (0/1) E. Lymph node, station 12 B, excision - No evidence of malignancy in one lymph node (0/1) F. Lung, right lower lobe, lobectomy - Neuroendocrine carcinoma, intermediate grade (atypical carcinoid) - Tumor measures 2.4 cm - Lymphovascular invasion is identified - No perineural invasion identified - Surgical resection margins free of tumor- Obstructive pneumonia in non-tumor lung - Metastatic neuroendocrine carcinoma in one of four peribronchial/hilar lymph nodes (1/4) - See comment and synoptic G. Lymph node, station 10, excision - No evidence of malignancy in one lymph node (0/1) H. 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 Lymph node, station 7 B, excision - Metastatic neuroendocrine carcinoma in two lymph nodes (2/2) - Greatest dimension: 1.7 cm - No extranodal extension identified J. Lymph node, station 7 C, excision - No evidence of malignancy in one lymph node (0/1) K. Lymph node, station 7 D with pericardium, excision - No evidence of malignancy in one lymph nodes (0/1) - Pericardium with no evidence of malignancy, and acute and chronic pericarditis L. Lymph node, station 4R, excision - No evidence of malignancy in one lymph node (0/1) M. Lymph node, station 4L, excision - No evidence of malignancy in one lymph node (0/1) N. Lymph node, station 4R B, excision - No evidence of malignancy in one lymph nodes (0/1) O. Lymph node, station 2R, excision - No evidence of malignancy in one lymph nodes (0/1) Assessment/Plan Mr Kwaku Kulkarni is a 58-year old (male who presents today accompanied by jeremias. 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 His prior treatments include right lower lobectomyin 2019 and radiation to subcarinal lymph node for a total of 6,000 cGy in 15 fractions after lymphnode recurrence in 2020. He has remained on observation since. His performance status is 0, with significant co-morbid conditions including obesity, LEONOR and HTN. His repeat scans in September 2023 that revealed the presence of multiple lesions throughout the left andright hemiliver concerning for hepatic metastatic disease. We recommend to proceed with CT guided liver biopsy to confirm recurrence of high grade neuroendocrine tumor vs more aggressive tumors such as small cell carcinoma. We will check Guardant 365 and free cell DNA to evaluate for possible target mutations. We briefly discussed that possible treatment plans could include standard of care combination capecitabine and temozolomide, vs clinical trial. We will screen for clinical trial eligibility after diagnosis is confirmed He would like to hold off on brain MRI at this time. He will return for follow up in 3 weeks to review biopsy results and discussed treatment options. Mr Kulkarni had the opportunity to ask questions and these were all answered to his apparent satisfaction. He was given our clinic contact information and knows to contact us in the interim with anyquestions, concerns, or new symptoms. He expressed agreement and understanding of the above recommended plan of care. Kavita Kenney MD Hematology-Oncology Fellow Cosigned by Kip Del Rio MD at 10/05/2023 6:46 PM CDT Associated attestation - Kip Del Rio MD - 10/05/2023 6:46 PM CDT I have seen and examined the patient. I agree with the findings and plan of care as documented in the resident/fellow's note. My total encounter time on 10/01/2023 was 60 minutes which was spent in the activities documented in the note. This includes time spent prior to the visit and after the visitin direct care of the patient. This time does not include time spent in any separately reportable services. documented in this encounter Plan of Treatment Scheduled Orders Name Type Priority Associated Diagnoses Orde r Schedule CBC with auto differential Lab Routine Primary cancer of right lower lobe of lung (HCC) Expected: 10/22/2023, Expires: 09/30/2024 Comprehensive metabolic panel Lab STAT Primary cancer of right lower lobe of lung (HCC) Expected: 10/22/2023, Expires: 09/30/2024 documented as of this encounter Results * US Guided Biopsy [...] placed in formalin and submitted to the geosciences associate professor service for delivery to Surgical Pathology. The biopsy tract was embolized with ??[place] pledgets. The patient's skin was cleaned and dressed. The patient tolerated the entire procedure well without immediate complications. Dr. Momo Garcia M.D., the attending radiologist, was present from the beginning to the end of the procedure. Drs. Misyt Baum and Radha performed the biopsy. Procedure Note Moom Garcia MD - 10/16/2023 EXAMINATION: ULTRASOUND-GUIDED CORE [...] placed in formalin and submitted to the geosciences associate professor service for delivery to Surgical Pathology. The [...] Momo Garcia M.D. Kip Del Rio MD [facility] US PROCEDURES Final Re sult * (ABNORMAL) Comprehensive metabolic panel (10/01/2023 4:55 PM CDT) Sodium 140 135 - 145 mmol/L Potassium, pl 4.0 3.3 - 4.9 mmol/L [facility] Chloride 103 97 - 110 mmol/L [facility] CO2 28 22 - 32 mmol/L [facility] Anion gap 9 2 - 15 mmol/L [facility] BUN 13 6 - 25 mg/dL [facility] Creatinine 0.73(L) 0.80 - 1.30 mg/dL [facility] Glucose 96 70 - 199 mg/dL [facility] Comment: Interpretive Data Fasting glucose >/= 126 [...] interpretive data was last revised 2022. Calcium 10.0 8.5 - 10.3 mg/dL [facility] Bilirubin, total 0.3 0.1 - 1.2 mg/dL [facility] Protein, pl 7.9 6.5 - 8.5 g/dL [facility] Albumin 4.5 3.5 - 5.0 g/dL [facility] Alk phos 95 40 - 130 Units/L [facility] ALT 27 7 - 55 Units/L [facility] AST 28 10 - 50 Units/L [facility] Blood 10/01/2023 4:55 PM CDT 10/01/2023 5:01 PM CDT us Kip Del Rio MD LAB BLOOD ORDERABLES Final Result [facility] [place] [address] * (ABNORMAL) CBC with auto differential (10/01/2023 4:55 PM CDT) [facility] WBC 10.6(H) 3.8 - 9.9 K/cumm Hgb 14.2 13.0 - 17.5 g/dL [facility] Hct 43.3 38.9 - 50.3 % [facility] Plt 247 150 - 400 K/cumm [facility] MPV 12.1 9.1 - 12.3 fL [facility] RBC 4.92 4.30 - 5.80 M/cumm [facility] MCV 88.0 81.3 - 96.4 fL [facility] MCH 28.9 27.1 - 33.3 pg [facility] MCHC 32.8 32.3 - 35.7 g/dL [facility] RDW CV 13.4 11.1 - 14.9 % [facility] RDW SD 43.4 35.7 - 48.1 fL [facility] NRBC abs 0.00 0.00 - 0.01 K/cumm [facility] Blood 10/01/2023 4:55 PM CDT 10/01/2023 5:01 PM CDT Kip Del Rio MD LAB BLOOD ORDERABLES Final Result Performing Organization Address City/[facility] Co de Phone Number [facility] Department [place] [address] * aPTT (10/01/2023 4:55 PM CDT) [facility] aPTT 33 28 - 38 sec Comment: Interpretive Data Heparin therapeutic range: 66.0 - 100.0 seconds. Range based on correlation with therapeutic heparin activity range of 0.3 - 0.7 Units/mL. Current interpretive data was last revised on 2022. Blood 10/01/2023 4:55 PM CDT 10/01/2023 5:01 PM CDT Kip Del Rio MD LAB BLOOD ORDERABLES Final Result Performing Organization Address [facility] Co de Phone Number [facility] Department [place] [address] * Protime-INR (10/01/2023 4:55 PM CDT) Pathologist [facility] PT 10.6 9.7 - 13.0 sec INR 0.98 0.90 - 1.20 [facility] Comment: Interpretive data Oral anticoagulant therapeutic ranges: Venous thromboembolism prophylaxis or treatment: 2.0-3.0 CARDIOLOGY Standard range: 2.0-3.0 High-intensity range: 2.5-3.5 Refer to indication-specific guidelines for appropriate target ranges for prosthetic heart valve replacement. Current interpretive data was last revised on 2019. Blood 10/01/2023 4:55 PM CDT 10/01/2023 5:01 PM CDT Kip Del Rio MD LAB BLOOD ORDERABLES Final Result [facility] Department [place] [address] * [facility] 360 CDx (10/01/2023 4:44 PM CDT) MSI-HIGH NOT DETECTED 10/07/2023 6:37 AM CDT [facility] Blood specimen (specimen) (Blood, Venous) 10/01/2023 4:44 PM CDT 10/02/2023 12:40 PM CDT Narrative This result has genomic variants that were not included in this document. Kip Del Rio MD LAB GENETIC TESTING Final Result [facility] [address] [place] [address] [phone] documented in this encounter Visit Diagnoses Diagnosis Primary cancer of right lower lobe of lung (HCC)- Primary Liver lesion Other specified disorders of liver Primary cancer of right lower lobe of lung (HCC) Liver lesion Other specified disorders of liver documented in this encounter Discontinued Medications Medication Sig Discontinue Reason Start Date End Da te pravastatin (PRAVACHOL) 20 mg tabletIndications:hype rlipidemia Take 1 tablet (20 mg total) by mouth every morning Patient Discharge 04/10/2019 10/01/2023 olopatadine-mometasone (Ryaltris) 665-25 mcg/spray spray,non-aerosol Administer into affected nostril(s) 2 (two) times a day Patient Discharge 10/01/2023 albuterol 2.5 mg /3 mL (0.083 %) nebulizer solutionIndications:Mi ld intermittent asthma without complication Take 3 mL (2.5 mg total) by nebulization every 6 (six) hours as needed for wheezing for up to 480 doses Patient Discharge 09/19/2022 10/01/2023 liraglutide, weight loss, (Saxenda) 3 mg/0.5 mL (18 mg/3 mL) pen injector Inject 0.6-3 mg under the skin daily Patient Discharge 12/23/2022 10/01/2023 documented as of this encounter Orders Outpatient Referral Count Last Ordered Date Fir st Ordered Date AMB REFERRAL TO ONCOLOGY 1 10/01/2023 Appointment Requests Count Last Ordered Date Fi rst Ordered Date ONCBCN CLINIC APPOINTMENT REQUEST 1 024 ONCBCN LAB APPOINTMENT 2 10/01/2023 documented in this encounter Care Teams Coding Specialist Relationship Specialty Start Date End Date Clara Stanley PA [facility] [place] [address] PCP - General Nurse Practitioner 04/05/19 Jasper Canchola MD [address] [place] [address] Surgeon Thoracic Surgery 05/11/19 Alexis Lopez MD [address] [facility] [address] [address] Life Science Technical Officer Pulmonary Disease 05/11/19 Kip Del Rio MD [address] [facility] [address] [place] [address] Medical Oncologist/Skilled Nursing Facility Counselor Hematology and Oncology 05/11/19 Jacob Flynn MD [address] [facility] [address] [place] [address] Radiation Oncologist Radiation Oncology 05/25/19 Renetta Ballesteros NP [address] [facility] [address] [place] [address] Nurse Practitioner Radiation Oncology 06/11/22 documented as of this encounter
--- OUTSIDE RECORDS SUMMARY | 2024-03-02 03:42 | XMS_ITS | Encounter Summary ---
Author Organization [facility] Address [address] [place] [address] Phone Care Team Providers Care Supervisor General Name Role Phone Clara Stanley Primary Care Provider + Jasper Canchola MD Unavailable Alexis Lopez MD Unavailable Kip Del Rio MD Unavailable [phone] Jacob Flynn MD Unavailable [phone] Renetta Ballesteros NP Unavailable Encounter Details Date Type Department Care Team (Late st Contact Info) Description 10/22/2023 3:00 PM CDT Office Visit [facility] [address] 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 on file Not on file documented as of this encounter Last Filed Vital Signs Vital Sign Reading Time Taken Comments Blood Pressure 127/78 10/22/2023 2:36 PM CDT Pulse 83 10/22/2023 2:36 PM CDT Temperature 36.6 ??C (97.9 ??F) 10/22/2023 2:36 PM CD T Respiratory Rate 16 10/22/2023 2:36 PM CDT Oxygen Saturation 98% 10/22/2023 2:36 PM CDT Inhaled Oxygen Concentration - - Weight 151.5 kg (334 lb) 10/22/2023 2:36 PM CDT Height - - Body Mass Index 41.75 10/16/2023 7:54 AM CDT documented in this encounter Ordered Prescriptions Prescription Sig Dispense Quantity Refills Last Filled Start Date End Date prochlorperazine (Compazine) 10 mg tabletIndications :Malignant neoplasm of lower lobe of right lung (HCC),Neuroendocr ine carcinoma of lung (HCC) Take 1 tablet (10 mg total) by mouth every 6 (six) hours as needed for nausea or vomiting Use first for nausea 120 tablet 3 ondansetron (ZOFRAN) 8 mg tabletIndications :Malignant neoplasm [...] not stop nausea. 24 tablet 3 4 loperamide (IMODIUM A-D) 2 mg tablet Take 2 tablets ( 4 mg) after the first episode of diarrhea and 1 tablet (2 mg) after every subsequent episode for up to 8 tablets a day. Please call the office if you take 8 tablets. 90 tablet 3 4 loperamide (IMODIUM A-D) 2 mg tablet Take 2 tablets ( 4 mg) after the first episode of diarrhea and 1 tablet (2 mg) after every subsequent episode for up to 8 tablets a day. Please call the office if you take 8 tablets. 90 tablet 3 4 10/22/19 24 prochlorperazine (Compazine) 10 mg tabletIndications :Malignant neoplasm of lower lobe of right lung (HCC),Neuroendocr ine carcinoma of lung (HCC) Take 1 tablet (10 mg total) by mouth every 6 (six) hours as needed for nausea or vomiting Use first for nausea 120 tablet 3 4 10/22/19 24 ondansetron (ZOFRAN) 8 mg tabletIndications :Malignant neoplasm [...] not stop nausea. 24 tablet 3 4 10/22/19 24 loperamide (IMODIUM A-D) 2 mg tablet Take 2 tablets ( 4 mg) after the first episode of diarrhea and 1 tablet (2 mg) after every subsequent episode for up to 8 tablets a day. Please call the office if you take 8 tablets. 90 tablet 3 4 10/22/19 24 documented in this encounter Progress Notes * Dang Breaux MD - 10/22/2023 3:00 PM CDT Images from the original note were not included. Oncology Progress Note Cancer Staging Carcinoid tumor of right lung [...] well-differentiated neuroendocrine tumor. Genomics: Cell-free DNA through [id number] 10/01/2023: FGFR2 N235K (0.2%), ARTIS [id number] (0.2%). MSI-High Not Detected. Treatment: Right lower lobectomy and mediastinal lymph node dissection for excision of a T1cN2 neuroendocrine carcinoma on 05/26/2019. Radiation therapy to the subcarinal lymph node for a total of 6,000 cGy in 15 fractions, 01/31-02/21/2021. 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 Kulkarni presents today for follow-up and to discuss the results of his liver biopsy. 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 He overall has been feeling well. He is taking semaglutide to help with weight loss, he just started at the beginning of September. He denies any fevers, chills, shortness of breath, abdominal pain, diarrhea, constipation, rashes, lumps or bumps. Past Medical History: Diagnosis Date LEIDA (acute [...] 14 days., Disp: 84 tablet, Rfl: 0 capecitabine (XELODA) 500 mg tablet, Take 3 tablets (1,500 mg) by mouth 2 (two) times a day for 14 days., Disp: 84 tablet, Rfl: 0 chlorthalidone (HYGROTON) 25 mg tablet, , Disp: , Rfl: cholecalciferol (VITAMIN D-3) 50,000 unit capsule, Take 1 capsule (50,000 Units total) by mouth, Disp: , Rfl: ncdavsoacbk-tpxgvdeow-edyyglkc (Trelegy Ellipta) 100-62.5-25 mcg inhaler, Inhale 1 [...] 40 mg tablet, , Disp: , Rfl: temozolomide (TEMODAR) 100 mg capsule, Take 3 capsules (300 mg) by mouth daily for 5 days Total dose is 480 mg. Do not start until day 10, then take for 5 days. Days 10-14., Disp: 15 capsule, Rfl: 0 temozolomide (TEMODAR) 100 mg capsule, Take 3 capsules (300 mg) by mouth daily for 5 days Total dose is 480 mg. Do not start until day 10, then take for 5 days. Days -., Disp: 15 capsule, Rfl: 0 temozolomide (TEMODAR) 180 mg capsule, Take 1 capsule (180 mg) by mouth daily for 5 days Total doseis 480 mg. Do not start until day 10, then take for 5 days. Days -., Disp: 5 capsule, Rfl: 0 temozolomide (TEMODAR) 180 mg capsule, Take 1 capsule (180 mg) by mouth daily for 5 days Total doseis 480 mg. Do not start until day 10, then take for 5 days. Days -., Disp: 5 capsule, Rfl: 0 fexofenadine (CHERELLE) 180 mg tablet, Take 1 tablet (180 mg total) by mouth daily, Disp: 30 tablet,Rfl: 11 fluticasone propionate (FLONASE) 50 mcg/actuation nasal spray, Administer 2 sprays into each nostril daily, Disp: 16 g, Rfl: 6 loperamide (IMODIUM A-D) 2 mg tablet, Take 2 tablets ( 4 mg) after the first episode of diarrhea and 1 tablet (2 mg) after every subsequent episode for up to 8 tablets a day. Please call the office if you take 8 tablets., Disp: 90 tablet, Rfl: 3 nitroglycerin (NITROSTAT) 0.4 mg SL tablet, Place 1 tablet (0.4 mg total) under the tongue every 5 (five) minutes as needed, Disp: , Rfl: ondansetron (ZOFRAN) 8 mg tablet, Take 1 tablet (8 mg total) by mouth every 8 (eight) hours as needed for nausea or vomiting Take 30 minutes prior to oral chemotherapy then every 8 hours as needed upto 3 doses in 24 hours if prochlorperazine does not stop nausea., Disp: 24 tablet, Rfl: 3 prochlorperazine (Compazine) 10 mg tablet, Take 1 tablet (10 mg total) by mouth every 6 (six) hoursas needed for nausea or vomiting Use first for nausea, Disp: 120 tablet, Rfl: 3 semaglutide (Wegovy) 0.25 mg/0.5 mL auto-injector, Inject 0.5 mL (0.25 mg total) under the skin once a week (Patient not taking: Reported on 09/23/2023), Disp: , Rfl: Review of Systems: As per Interval History. All other systems reviewed and negative. Performance Status: 0 Objective Vitals: Most Recent : BP: 127/78 Temp: 36.6 ??C (97.9 ??F) Temp src: Transdermal Pulse: 83 Resp: 16 SpO2: 98 % Weight: (!) 151.5 kg (334 lb) Physical Exam: General: Well-appearing, in no acute distress. HEENT: Sclera anicteric, no palor, mucous membranes moist. Lymphatics: No cervical or supraclavicular adenopathy. Chest: Clear to auscultation bilaterally. No increased work of breathing Heart: Regular rate and rhythm. No murmur, rub, or gallop. Abdomen: Soft, non-tender, non-tender. Extremities: No edema, clubbing, or cyanosis noted. Skin: Scarred rash over his back, most prominent over the trapezius muscles, healing, he reports this is chronic when he spends time in the water. Neurologic: Alert, speech normal, no gross motor or sensory deficits noted. Psychiatric exam: Appropriate affect Lab/Radiology/Diagnostic Review: Hematology Lab History Latest Ref Rng & Units 10/01/2023 16:55 10/22/2023 14:20 Labs - Hematology WBC 3.8 - 9.8 K/cumm 10.6 12.0 Total Hb, POC 13.8 - 17.2 g/dL 14.2 13.7 Hct 40.7 - 50.3 % 43.3 41.7 Plt 140 - 440 K/cumm 247 246 Neutrophil abs 1.5 - 6.6 K/cumm 7.3 8.8 Lymphocytes, abs 1.2 - 3.3 K/cumm 1.6 1.7 Chem/LFT Lab History Latest Ref Rng & Units 12/25/2022 09:57 09/23/2023 09:47 10/01/2023 16:55 10/22/2023 14:20 Labs-Chem/LFT Sodium 135 - 145 mmol/L 140 137 Creatinine 0.80 - 1.30 mg/dL 0.73 0.78 Bilirubin, total 0.1 - 1.2 mg/dL 0.3 0.4 AST 10 - 50 Units/L 28 26 ALT 7 - 55 Units/L 27 23 Alk phos 40 - 130 Units/L 95 99 CrCl- Actual Body Weight (Cockcroft-Gault) 207.7 227.7 246.3 226.6 Lab Results Component Value Date POTASSIUM 4.3 10/22/2023 CO2 29 10/22/2023 CHLORIDE 100 10/22/2023 GLUCOSE 96 10/22/2023 Lab Results Component Value Date CALCIUM 10.0 10/22/2023 Radiology: MRI Abdomen Liver W WO Contrast Result Date: 09/25/2023 Multiple arterially enhancing, diffusion restricting, lesions throughout the left and right hemiliver in keeping with hepatic metastatic disease. CT Chest Abdomen Pelvis W Contrast Result Date: 09/23/2023 1. Multiple new small and subtle arterially enhancing foci throughout the liver, which are suspicious for metastatic disease. Further evaluation and characterization of extent is recommended with a dedicated liver MR. 2. Small right lower quadrant omental nodule is indeterminate. Recommend attention on follow-up imaging. Assessment/Plan Mr. Kwaku Kulkarni is a 58-year old male who presents today accompanied by jereimas and his daughter for follow up of [...] atypical carcinoid with Ki- 67 of 8.1%. We discussed our recommendation of starting capecitabine and temozolomide. We reviewed the treatments would consist of capecitabine on days 1-14 and temozolomide on days 9-14, with days 14-28 off. Each cycle will consist of 28 days. We reviewed common side effects of these medications including butnot limited to nausea, vomiting, diarrhea, lowered blood counts, and hand-foot syndrome. The medications have been sent to his specialty pharmacy and he has received a call from them. He received documents for additional teaching on these medications today. He may call with any questions or concerns. We will see him back after starting treatment, he will call us when he receives the medications. Dang Breaux MD Hematology-Oncology Fellow [facility] in [place] documented in this encounter Plan of Treatment Not on file documented as of this encounter Results * (ABNORMAL) Comprehensive metabolic panel (11/12/2023 2:53 PM CDT) Pathologist [facility] Sodium 137 135 - 145 mmol/L Comment:Testing performed by : [facility], [address] [place] [phone] Potassium, pl 3.9 3.3 - 4.9 mmol/L [facility] Comment:Testing performed by : [address] [address] Chloride 100 97 - 110 mmol/L [facility] Comment:Testing performed by : [address] [address] CO2 30 22 - 32 mmol/L [facility] Comment:Testing performed by : [address] [address] Anion gap 7 2 - 15 mmol/L [facility] Comment:Testing performed by : [address] [address] BUN 12 6 - 25 mg/dL [facility] Comment:Testing performed by : [address] [address] Creatinine 0.58(L) 0.80 - 1.30 mg/dL [facility] Comment:Testing performed by : [address] [address] Glucose 98 70 - 199 mg/dL [facility] Comment: Interpretive Data Fasting glucose >/= 126 [...] was last revised 2022. Testing performed by: [facility], [address] [place] [phone] Calcium 9.9 8.5 - 10.3 mg/dL [facility] Comment:Testing performed by : [address] [address] Bilirubin, total 0.4 0.1 - 1.2 mg/dL [facility] Comment:Testing performed by : [address] [address] Protein, pl 7.7 6.5 - 8.5 g/dL [facility] Comment:Testing performed by : [address] [address] Albumin 4.4 3.5 - 5.0 g/dL [facility] Comment:Testing performed by : [address] [address] Alk phos 87 40 - 130 Units/L [facility] Comment:Testing performed by : [address] [address] ALT 35 7 - 55 Units/L [facility] Comment:Testing performed by : [address] [address] AST 36 10 - 50 Units/L [facility] Comment:Testing performed by : [address] [address] Blood 11/12/2023 2:53 PM CDT 11/12/2023 2:59 PM CDT us Kip Del Rio MD LAB BLOOD ORDERABLES Final Result [facility] Department of [place] [address] * (ABNORMAL) CBC with auto differential (11/12/2023 2:53 PM CDT) WBC 9.7 3.8 - 9.8 K/cumm Comment:Testing performed by : [facility], [address] [place] [phone] Hgb 13.2(L) 13.8 - 17.2 g/dL [facility] Comment:Testing performed by : [address] [address] Hct 38.7(L) 40.7 - 50.3 % [facility] Comment:Testing performed by : [address] [address] Plt 228 140 - 440 K/cumm [facility] Comment:Testing performed by : [facility], [address] [place] [phone] MPV 10.0 6.8 - 10.4 fL [facility] Comment:Testing performed by : [address] [address] RBC 4.33(L) 4.50 - 5.70 M/cumm [facility] Comment:Testing performed by : [address] [address] MCV 89.3 80.0 - 97.6 fL [facility] Comment:Testing performed by : [facility], [address] [place] [phone] MCH 30.5 26.7 - 33.7 pg [facility] Comment:Testing performed by : [address] [address] MCHC 34.2 32.7 - 35.5 g/dL [facility] Comment:Testing performed by : [address] [address] RDW CV 14.4 11.8 - 14.6 % [facility] Comment:Testing performed by : [facility], [address] [place] [phone] NRBC abs 0.00 0.00 - 0.01 K/cumm SEJAL [facility]ARN Comment:Testing performed by : [facility], [address] [place] [phone] Blood 11/12/2023 2:53 PM CDT 11/12/2023 2:59 PM CDT us Kip Del Rio MD LAB BLOOD ORDERABLES Final Result [facility] Department [place] [address] documented in this encounter Visit Diagnoses Diagnosis Malignant neoplasm of lower lobe of right lung (HCC)- Primary Primary cancer of right lower lobe of lung (HCC) Neuroendocrine carcinoma of lung (HCC) documented in this encounter Discontinued Medications Medication Sig Discontinue Reason Start Date End Da te albuterol HFA (PROVENTIL HFA,VENTOLIN HFA,PROAIR HFA) 90 mcg/actuation inhalerIndications:M ild intermittent asthma without complication Inhale 2 puffs every 6 (six) hours as needed for wheezing Fill per patient's formulary Patient Discharge 02/26/2022 10/22/2023 roflumilast (DALIRESP) 500 mcg tabletIndications:Pr evention of Bronchospasm with Chronic Bronchitis Take 1 tablet (500 mcg total) by mouth daily Patient Discharge 09/19/2022 10/22/2023 loperamide (IMODIUM A-D) 2 mg tablet Take 2 tablets ( 4 mg) after the first episode of diarrhea and 1 tablet (2 mg) after every subsequent episode for up to 8 tablets a day. Please call the office if you take 8 tablets. 10/22/2023 10/22/2023 ondansetron (ZOFRAN) 8 mg tabletIndications:Ma lignant neoplasm of lower lobe of right lung (HCC),Neuroendocrine carcinoma of lung (HCC) Take 1 tablet (8 mg total) by mouth every 8 (eight) hours as needed for nausea or vomiting Take 30 minutes prior to oral chemotherapy then every 8 hours as needed up to 3 doses in 24 hours if prochlorperazine does not stop nausea. 10/22/2023 10/22/2023 prochlorperazine (Compazine) 10 mg tabletIndications:Ma lignant neoplasm of lower lobe of right lung (HCC),Neuroendocrine carcinoma of lung (HCC) Take 1 tablet (10 mg total) by mouth every 6 (six) hours as needed for nausea or vomiting Use first for nausea 10/22/2023 10/22/2023 loperamide (IMODIUM A-D) 2 mg tablet Take 2 tablets ( 4 mg) after the first episode of diarrhea and 1 tablet (2 mg) after every subsequent episode for up to 8 tablets a day. Please call the office if you take 8 tablets. 10/22/2023 10/22/2023 documented as of this encounter Orders Appointment Requests Count Last Ordered Date Fi rst Ordered Date ONCBCN CLINIC APPOINTMENT REQUEST 2 024 10/22/2023 ONCBCN LAB APPOINTMENT 1 10/22/2023 documented in this encounter Care Teams Supervisor General Relationship Specialty Start Date End Date Clara Stanley PA [address] [place] [address] PCP - General Nurse Practitioner 04/05/19 Jasper Canchola MD [address] [place] [address] Surgeon Thoracic Surgery 05/11/19 Alexis Lopez MD [address] [address] [place] Pulmonary Disease 05/11/19 Kip Del Rio MD [address] [facility] [address] [place] [address] Medical Oncologist/Network Architect Hematology and Oncology 05/11/19 Jacob Flynn MD [address] [facility] [address] [place], [place] [id number] Radiation Oncologist Radiation Oncology 05/25/19 Renetta Ballesteros NP [address] [facility] [address] [place] [address] Nurse Practitioner Radiation Oncology 06/11/22 documented as of this encounter
--- OUTSIDE RECORDS SUMMARY | 2024-03-02 03:42 | XMS_ITS | Encounter Summary ---
Author Organization [facility] Address [address] [place] [address] Care Team Providers Care Document Control Assistant Name Role Phone Clara Stanley Primary Care Provider + Jasper Canchola MD Unavailable Alexis Lopez MD Unavailable [phone] Kip Block MD Unavailable Jacob Flynn MD Unavailable Renetta Ballesteros NP Unavailable Reason for Referral * Oncology (Routine) - Authorized Specialty Diagnoses / Procedures Referred By Contac t Referred To Contact Oncology Diagnoses Primary cancer of right lower lobe of lung (HCC) Jacob Flynn MD [address] [facility] [address] [place] [address] Phone: tel: fax: Kip Block MD [address] [facility] [address] [place] [address] Phone: tel: fax: Referral ID Status Reason Start Date Expiration Date Visits Requested Visits Authorized [id number] Authorized Specialty Services Required 09/25/2023 03/15/2024 99 99 Question Answer Please select the performing region: [facility] (All Locations) [[id number]] Please select the performing department: [facility] 7 [[id number]] Is this referral for Breast [facility]? No Does the patient have a diagnosis of a Head and Neck cancer? 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 on file Not on file documented as of this encounter Plan of Treatment Scheduled Referrals Name Type Priority Associated Diagnoses Order Schedule Ambulatory referral to Oncology Outpatient Referral Routine Primary cancer of right lower lobe of lung (HCC) Expected: 10/09/2023 (Approximate), Expires: 09/24/2024 documented as of this encounter Visit Diagnoses Diagnosis Primary cancer of right lower lobe of lung (HCC)- Primary documented in this encounter Care Teams Document Control Assistant Relationship Specialty Start Date End Date Clara Stanley PA [address] [place] [address] PCP - General Nurse Practitioner 04/05/19 Jasper Canchola MD [address] [place] [address] Surgeon Thoracic Surgery 05/11/19 Alexis Lopez MD [address] [address] Medical Referral Coordinator Pulmonary Disease 05/11/19 Kip Block MD [address] [place] [address] Medical Oncologist/Etymology Teacher Hematology and Oncology 05/11/19 Jacob Flynn MD [address] [place] [address] Radiation Oncologist Radiation Oncology 05/25/19 Renetta Ballesteros NP [address] [place] [address] Nurse Practitioner Radiation Oncology 06/11/22 documented as of this encounter
--- OUTSIDE RECORDS SUMMARY | 2024-03-02 03:42 | XMS_ITS | Encounter Summary ---
Author Organization [facility] Address [address] [place] [address] Care Team Providers Care Grain Broker And Market Operator Name Role Phone Clara Stanley Primary Care Provider + Jasper Canchola MD Unavailable Alexis Lopez MD Unavailable Kip Del Rio MD Unavailable Jacob Flynn MD Unavailable Renetta Ballesteros NP Unavailable [phone] Reason for Referral * MRI/CAT/PET Scan (Routine) - Closed Specialty Diagnoses / Procedures Referred By Erik [email or web address] Referred To Contact Radiology Diagnoses Primary cancer of right lower lobe of lung (HCC) Radiotherapy follow-up examination Procedures MRI Abdomen Liver W WO Contrast Renetta Ballesteros NP [address] [facility] [address] [place] [address] Phone: tel: fax: [address] [phone] Referral ID Status Reason Start Date Expiration Date Visits Re quested Visits Authorized [id number] Closed 09/23/2023 10/22/2024 1 1 Reason for Visit * MRI/CAT/PET Scan (Routine) - Closed Specialty Diagnoses / Procedures Referred By Erik t Referred To Contact Radiology Diagnoses Primary cancer of right lower lobe of lung (HCC) Radiotherapy follow-up examination Procedures MRI Abdomen Liver W WO Contrast Renetta Ballesteros, TJ [address] [facility] [address] [place] [address] Phone: tel: fax: [address] [phone] Referral ID Status Reason Start Date Expiration Date Visits Re quested Visits Authorized [id number] Closed 09/23/2023 10/22/2024 1 1 Encounter Details Date Type Department Care Team (Latest Contact Info) Description 09/24/2023 6:59 PM CDT - 09/24/2023 11:59 PM CDT Hospital Encounter [facility] [address] [place] [address] Primary cancer of right lower lobe of lung (HCC) [C34.31]; Radiotherapy follow-up examination [Z09] Discharge Disposition: Discharge to home or self [...] on file 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 Gender Identity Not on file Sexual [...] use, do not swallow 60 each 11 08/28/2023 multivitamin capsule Take 1 capsule by mouth daily pravastatin (PRAVACHOL) 40 mg tablet 10/17/2022 albuterol 2.5 mg /3 mL (0.083 %) nebulizer solutionIndicatio ns:Mild intermittent asthma without complication Take 3 mL (2.5 mg total) by nebulization every 6 (six) hours as needed for wheezing for up to 480 doses 360 mL 3 09/19/2022 4 albuterol HFA (PROVENTIL HFA,VENTOLIN HFA,PROAIR HFA) 90 mcg/actuation inhalerIndication s:Mild intermittent asthma without complication Inhale 2 puffs every 6 (six) hours as needed for wheezing Fill per patient's formulary 1 each 02/26/2022 4 liraglutide, weight loss, (Saxenda) 3 mg/0.5 mL (18 mg/3 mL) pen injector Inject 0.6-3 mg under the skin daily 12/23/2022 4 montelukast (SINGULAIR) 10 mg tabletIndications :Mild intermittent asthma without complication TAKE (1) TABLET BY MOUTH ONCE DAILY IN THE EVENING. *VIAL* 90 tablet 06/17/2023 4 olopatadine-momet asone (Ryaltris) 665-25 mcg/spray spray,non-aerosol Administer into affected nostril(s) 2 (two) times a day [address] (PROTONIX) 40 mg EC tabletIndications :Treatment of Non-Bleeding Gastric Disorder Take 1 tablet (40 mg total) by mouth daily 30 tablet 2 08/26/2023 4 pravastatin (PRAVACHOL) 20 mg tabletIndications :hyperlipidemia Take 1 tablet (20 mg total) by mouth every morning 04/10/2019 4 roflumilast (DALIRESP) 500 mcg tabletIndications :Prevention of Bronchospasm with Chronic Bronchitis Take 1 tablet (500 mcg total) by mouth daily 30 tablet 3 09/19/2022 4 semaglutide (Wegovy) 0.25 mg/0.5 mL auto-injector Inject 0.5 mL (0.25 mg total) under the skin once a week 09/22/2023 4 documented as of this encounter Discharge Disposition Disposition Code Departure Means Destination Discharge to home or self care documented in this encounter Plan of Treatment Not on file documented as of this encounter Procedures Procedure Name Priority Date/Time Associated Diagnosis Comments MRI ABDOMEN LIVER W WO CONTRAST Schedule Routine, Read Routine (OP Routine) 09/24/2023 8:16 PM CDT Primary cancer of right lower lobe of lung (HCC) [C34.31] Radiotherapy follow-up examination [Z09] documented in this encounter Results * MRI Abdomen Liver W WO Contrast (09/24/2023 8:16 PM CDT) Anatomical Region Laterality Modality Body N/A Magnetic Resonan ce 09/25/2023 10:3 6 AM CDT Impressions 09/25/2023 12:06 PM CDT Multiple arterially enhancing, diffusion restricting, lesions throughout the left and right hemiliver in keeping with hepatic metastatic disease. Dictated by: Dagoberto Link MD, PHD The radiology attending physician has personally reviewed this study, and had reviewed and/or edited this written report and agrees with it. Electronically signed by: Momo Garcia M.D. 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 ??Evaluate liver foci suspicious for metastatic disease. TECHNIQUE: Magnetic resonance imaging of the abdomen was performed prior to and following the uneventful administration of intravenous Gadolinium contrast. Protocol: Liver Contrast: Eovist 20 mL COMPARISON: CT dated 09/23/2023 FINDINGS: Liver: No fat or iron deposition. - Bile ducts: Patent - Focal liver lesions: There are multiple (greater than 30) intrinsically T1 hypointense, arterially enhancing, diffusion restricting, lesions throughout the left and right hemiliver which demonstrate hypointensity on hepatobiliary phase images. Largest lesion measures 2.1 cm in hepatic segment 8 (series 31, image 31). - Vasculature: The portal vein and hepatic veins are patent. ??Hepatic artery patent. Gallbladder: Normal Pancreas: Normal Spleen: Normal Adrenals: Normal Kidneys: Normal Other Findings: No suspicious lymphadenopathy. ??No suspicious osseous lesions. 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 Evaluate liver foci suspicious for metastatic disease. TECHNIQUE: Magnetic resonance imaging of the abdomen was performed prior to and following the uneventful administration of intravenous Gadolinium contrast. Protocol: Liver Contrast: Eovist 20 mL COMPARISON: CT dated 09/23/2023 FINDINGS: Liver: No fat or iron deposition. - Bile ducts: Patent - Focal liver lesions: There are multiple (greater than 30) intrinsically T1 hypointense, arterially enhancing, diffusion restricting, lesions throughout the left and right hemiliver which demonstrate hypointensity on hepatobiliary phase images. Largest lesion measures 2.1 cm in hepatic segment 8 (series 31, image 31). - Vasculature: The portal vein and hepatic veins are patent. Hepatic artery patent. Gallbladder: Normal Pancreas: Normal Spleen: Normal Adrenals: Normal Kidneys: Normal Other Findings: No suspicious lymphadenopathy. No suspicious osseous lesions. IMPRESSION: Multiple arterially enhancing, diffusion restricting, lesions throughout the left and right hemiliver in keeping with hepatic metastatic disease. Dictated by: Dagoberto Link MD, PHD The radiology attending physician has personally reviewed this study, and had reviewed and/or edited this written report and agrees with it. Electronically signed by: Momo Garcia M.D. Renetta Ballesteros NP [facility] [place] PROCED[place] Final Result documented in this encounter Visit Diagnoses Diagnosis Primary cancer of right lower lobe of lung (HCC) [C34.31] Radiotherapy follow-up examination [Z09] Radiotherapy follow-up examination documented in this encounter Administered Medications Inactive Administered Medications - up to 3 most recent administrations Medication Order MAR Action Action Date Dose Rate Site gadoxetate (EOVIST) injection 20 mL 20 mL, intravenous, Once in imaging, contrast, Starting on Priscila 09/24/23 at 2016, For 1 dose Contrast Given 09/24/2023 8:16 PM CDT 20 mL documented in this encounter Orders Medications Ordered That Vikram ht Not Have Been Administered Count Last Ordered Date First Ordered Date gadoxetate (EOVIST) injection 20 mL 1 09/23 documented in this encounter Care Teams Grain Broker And Market Operator Relationship Specialty Start Date End Date Clara Stanley PA [address] [place] [address] PCP - General Nurse Practitioner 04/05/19 Jasper Canchola MD [address] [place] [address] Surgeon Thoracic Surgery 05/11/19 Alexis Lopez MD [address] [address] Concrete Panel Installer Pulmonary Disease 05/11/19 Kip Del Rio MD [address] [place] [address] Medical Oncologist/Bilingual Counter Sales Retail Hematology and Oncology 05/11/19 Jacob Flynn MD [address] [facility] [address] [place] [address] Radiation Oncologist Radiation Oncology 05/25/19 Renetta Ballesteros NP [address] [facility] [address] [place] [address] Nurse Practitioner Radiation Oncology 06/11/22 documented as of this encounter
--- OUTSIDE RECORDS SUMMARY | 2024-03-02 03:42 | XMS_ITS | Encounter Summary ---
Author Organization [facility] Address [address] [place] [address] Phone Care Team Providers Care Restaurant Host Name Role Phone Clara Stanley Primary Care Provider + Jasper Canchola MD Unavailable Alexis Lopez MD Unavailable [phone] Kip Del Rio MD Unavailable Jacob Flynn MD Unavailable [phone] Renetta Ballesteros NP Unavailable Encounter Details Date Type Department Care Team (Late st Contact Info) Description 10/21/2023 Orders Only [facility] Oncology [address] [facility] [address]th [place] [address] [place] [address] Kip Del Rio MD [address] [facility] [address] [place] [address] Neuroendocrine carcinoma of lung (HCC) (Primary Dx); Malignant neoplasm of lower lobe of right [...] file 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 Do not start until day 10, then take for 5 days. Days 10-14. 5 capsule 10/22/2023 4 temozolomide (TEMODAR) 100 mg capsuleIndications :Neuroendocrine carcinoma of lung (HCC),Malignant neoplasm of lower lobe of right lung (HCC) Take 3 capsules (300 mg) by mouth daily for 5 days Total dose is 480 mg. Do not start until day 10, then take for 5 days. Days 10-14. 15 capsule 10/22/2023 4 capecitabine (XELODA) 500 mg tabletIndications: Neuroendocrine carcinoma of lung (HCC),Malignant neoplasm of lower lobe of right lung (HCC) Take 3 tablets (1,500 mg) by mouth 2 (two) times a day for 14 days. 84 tablet 10/22/2023 4 documented in this encounter Plan of Treatment Not on file documented as of this encounter Results * (ABNORMAL) Comprehensive metabolic panel (10/22/2023 2:20 PM CDT) Sodium 137 135 - 145 mmol/L Comment:Testing performed by : [facility], [address] [place] [phone] Potassium, pl 4.3 3.3 - 4.9 mmol/L CERNER BJ Comment:Testing performed by : [facility], [address] [place] [phone] Chloride 100 97 - 110 mmol/L CERNER BJ Comment:Testing performed by : [facility], [address] [place] [phone] CO2 29 22 - 32 mmol/L CERNER BJ Comment:Testing performed by : [facility], [address] [place] [phone] Anion gap 8 2 - 15 mmol/L CERNER BJ Comment:Testing performed by : [facility], [address] [place] [phone] BUN 20 6 - 25 mg/dL CERNER BJ Comment:Testing performed by : [facility], [address] [place] [phone] Creatinine 0.78(L) 0.80 - 1.30 mg/dL CERNER BJ Comment:Testing performed by : [facility], [address] [place] [phone] Glucose 96 70 - 199 mg/dL CERNER BJ Comment: [...] was last revised 2022. Testing performed by: [facility], [address] [place] [phone] Calcium 10.0 8.5 - 10.3 mg/dL CERNER BJ Comment:Testing performed by : [facility], [address] [place] [phone] Bilirubin, total 0.4 0.1 - 1.2 mg/dL CERNER BJ Comment:Testing performed by : [facility], [address] [place] [phone] Protein, pl 8.3 6.5 - 8.5 g/dL CERRAFAELA HEARN Comment:Testing performed by : [facility], [address] [place] [phone] Albumin 4.6 3.5 - 5.0 g/dL CERRAFAELA HEARN Comment:Testing performed by : [facility], [address] [place] [phone] Alk phos 99 40 - 130 Units/L SEJAL HEARN Comment:Testing performed by : [facility], [address] [place] [phone] ALT 23 7 - 55 Units/L SEJAL HEARN Comment:Testing performed by : [facility], [address] [place] [phone] AST 26 10 - 50 Units/L SEJAL [facility] Comment:Testing performed by : [facility], [address] [place] [phone] Blood 10/22/2023 2:20 PM CDT 10/22/2023 2:23 PM CDT us Kip Del Rio MD LAB BLOOD ORDERABLES Final Result [facility] One [facility] Department [place] [address] * (ABNORMAL) CBC with auto differential (10/22/2023 2:20 PM CDT) WBC 12.0(H) 3.8 - 9.8 K/cumm Comment:Testing performed by : [facility], [address] [place] [phone] Hgb 13.7(L) 13.8 - 17.2 g/dL SEJAL HEARN Comment:Testing performed by : [address] [phone] Hct 41.7 40.7 - 50.3 % SEJAL HEARN Comment:Testing performed by : [address] [phone] Plt 246 140 - 440 K/cumm SEJAL HERAN Comment:Testing performed by : [facility], [address] [place] [phone] MPV 9.9 6.8 - 10.4 fL CERRAFAELA [facility] Comment:Testing performed by : [facility], [address] [place], [place] [phone] RBC 4.67 4.50 - 5.70 M/cumm CERRAFAELA BJ Comment:Testing performed by : [place] [phone] MCV 89.3 80.0 - 97.6 fL SEJAL [facility] Comment:Testing performed by : [facility], [address] [place] [phone] MCH 29.3 26.7 - 33.7 pg CERRAFAELA [facility] Comment:Testing performed by : [address] [phone] MCHC 32.7 32.7 - 35.5 g/dL SEJAL [facility] Comment:Testing performed by : [address] [phone] RDW CV 13.9 11.8 - 14.6 % SEJAL [facility] Comment:Testing performed by : [facility], [address] [place] [phone] NRBC abs 0.00 0.00 - 0.01 K/cumm SEJAL [facility] Comment:Testing performed by : [facility], [address] [place] [phone] Blood 10/22/2023 2:20 PM CDT 10/22/2023 2:23 PM CDT us Kip Del Rio MD LAB BLOOD ORDERABLES Final Result [facility] One [facility] Department of Laboratories [place], [place] [id number] documented in this encounter Visit Diagnoses Diagnosis Neuroendocrine carcinoma of lung (HCC)- Primary Malignant neoplasm of lower lobe of right lung (HCC) documented in this encounter Care Teams Restaurant Host Relationship Specialty Start Date End Date Clara Stalney PA [address] [place] [address] PCP - General Nurse Practitioner 04/05/19 Jasper Canchola MD [address] [place] [phone] Surgeon Thoracic Surgery 05/11/19 Alexis Lopez MD [address] [address] Team Foreman Pulmonary Disease 05/11/19 Kip Del Rio MD [address] [place] [address] Medical Oncologist/Master Electrician Hematology and Oncology 05/11/19 Jacob Flynn MD [address] [place], [place] [phone] Radiation Oncologist Radiation Oncology 05/25/19 Renetta Ballesteros NP [address] [place] [address] Nurse Practitioner Radiation Oncology 06/11/22 documented as of this encounter
--- OUTSIDE RECORDS SUMMARY | 2024-03-02 03:42 | XMS_ITS | Encounter Summary ---
Author Organization [facility] Address [address] [place] [address] Care Team Providers Care Night Time Nanny Name Role Phone Clara Stanley Primary Care Provider + Jasper Canchola MD Unavailable Alexis Lopez MD Unavailable Kip Del Rio MD Unavailable Violette Willis MD Unavailable Renetta Ballesteros NP Unavailable [phone] Reason for Visit * Reason Comments Follow-up Prior CT Encounter Details Date Type Department Care Team (Late st Contact Info) Description 12/25/2022 10:00 AM CDT Office Visit [facility] Radiation Oncology [address] 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 Gender Identity Not on file [...] - Inhaled Oxygen Concentration - - Weight 158.3 kg (349 lb) 12/25/2022 10:44 AM CDT Height 190.5 cm (6' 3 ) 12/25/2022 10:44 AM CDT Body Mass Index 43.62 12/25/2022 10:44 AM CDT documented in this encounter Progress Notes * Renetta Ballesteros NP - 12/25/2022 10:00 AM CDT Radiation Oncologist: Violette Willis MD Primary Care Physician: Clara Stanley PA Medical Oncologist: Kip Del Rio MD Surgeon: Jasper Canchola MD Referring Physician: No care steam distribution supervisor to display Date of Service: 12/25/2022 RADIATION ONCOLOGY FOLLOW UP NOTE IDENTIFYING DATA: Cancer Staging Carcinoid tumor of right lung Staging form: Lung, AJCC 8th Edition - Clinical: Stage IIIA (cT1c, cN2, cM0) - Unsigned (C34.31) Primary cancer of right lower lobe of lung (HCC) [C34.31] (primary encounter diagnosis) (C34.31) Malignant neoplasm of lower lobe of right lung (HCC) [C34.31] IDENTIFYING DATA AND INTERVAL HISTORY 57 y.o. 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 He did not receive adjuvant chemo or radiation. He had biopsy proven high right paratracheal marcus recurrence and completed radiation therapy to the mediastinum, subcarinal lymph node, 60 Gy in 15fx on 02/21/2021. He is accompanied by his today. Recently broke his foot. He is doing well otherwise. Patient is here today for follow up visit and review of restaging images to assess for progression of disease and post radiation toxicity. PAST MEDICAL, SURGICAL, FAMILY, AND SOCIAL HISTORY History Last Reviewed by Nuvia Crane MA on 09/19/2022 at 8:30 AM Sections Reviewed Medical, Surgical, Family, Tobacco, Socioeconomic ALLERGIES: Allergies as of 12/25/2022 Reviewed by Ro Paige RN on 12/25/2022 No Known Allergies MEDICATIONS: Review Info User Date and Time VIOLETTE WILLIS MD [[id number]] 09/21/2022 2:56 PM ROS A complete review of 10 systems was completed and negative unless noted above in history of presentillness or intake questionnaire. PHYSICAL EXAMINATION: Ht 190.5 cm (6' 3 ) Wt (!) 158.3 kg (349 lb) BMI 43.62 kg/m?? Pain Score and Location 12/25/22 1044 PainSc: 0-No pain Physical Exam Constitutional: Appearance: He is obese. Pulmonary: Effort: Pulmonary effort is normal. Musculoskeletal: General: Signs of injury present. Neurological: Mental Status: He is oriented to person, place, and time. Psychiatric: Mood and Affect: Mood normal. Behavior: Behavior normal. The Karnofsky performance scale today is 100, Fully active, able to carry on all pre-disease performed without restriction (ECOG equivalent 0). DIAGNOSTIC REPORTS REVIEWED: Imaging: I personally reviewed the CT imaging and compared to previous images. I subsequently reviewed with Dr. Violette Willis. Chest/Abdomen/Pelvic CT scan performed 12/25/22 demonstrates IMPRESSION: Postoperative changes of right lower lobectomy. No evidence of metastatic disease in the chest abdomen or pelvis. 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 He did not receive adjuvant chemo or radiation. He had biopsy proven high right paratracheal marcus recurrence and completed radiation therapy to the mediastinum, subcarinal lymph node, 60 Gy in 15 fx on 02/21/2021.. Today's review of restaging imaging, physical examination and review of systems demonstrates no clinical or radiographic evidence of recurrent disease or progression of disease. I reviewed the new report/images with the patient Patient is clinically doing well with no signs of locally recurrent disease. PLAN: Patient will return to the office in 6 months with a restaging Chest/Abdomen/Pelvic CT scan. RAD ONC PAIN PLAN: The patient is not currently having any pain that requires changes in pain management. No medication changes made at this office visit. All questions answered at this time. Patient was advised to contact our office at any time with any questions or concerns. Renetta Ballesteros NP- Radiation Oncology Cosigned by Violette Willis MD at 12/28/2022 10:47 PM CDT documented in this encounter Plan of Treatment Not on file documented as of this encounter Visit Diagnoses Diagnosis Primary cancer of right lower lobe of lung (HCC) [C34.31]- Primary Malignant neoplasm of lower lobe of right lung (HCC) [C34.31] documented in this encounter Historical Medications * This list may reflect changes made after this encounter. pravastatin (PRAVACHOL) 40 mg tablet 10/17/2022 chlorthalidone (HYGROTON) 25 mg tablet 09/29/2022 liraglutide, weight loss, (Saxenda) 3 mg/0.5 mL (18 mg/3 mL) pen injector Inject 0.6-3 mg under the skin daily 12/23/2022 10/01/2023 added in this encounter Care Teams Night Time Nanny Relationship Specialty Start Date End Date Clara Stanley PA [address] [place] [address] PCP - General Nurse Practitioner 04/05/19 Jasper Canchola MD [address] [place] [address] Surgeon Thoracic Surgery 05/11/19 Alexis Lopez MD [address] [facility] [address] [address] Baseball Hand Sewer Pulmonary Disease 05/11/19 Kip Del Rio MD [address] [place] [address] Medical Oncologist/Sewing Trimmer Hematology and Oncology 05/11/19 Violette Willis MD [address] [place] [address] Radiation Oncologist Radiation Oncology 05/25/19 Renetta Ballesteros NP [address] [place] [address] Nurse Practitioner Radiation Oncology 06/11/22 documented as of this encounter
--- OUTSIDE RECORDS SUMMARY | 2024-03-02 03:42 | XMS_ITS | Encounter Summary ---
Author Organization Formerly [facility] Address [address] [place] [address] Care Team Providers Care Embossing Unit Operator Name Role Phone Clara Stanley Primary Care Provider + Jasper Canchola MD Unavailable Alexis Lopez MD Unavailable Kip Del Rio MD Unavailable Jacob Flynn MD Unavailable Renetta Ballesteros NP Unavailable [phone] Reason for Referral * MRI/CAT/PET Scan (Routine) - Closed Specialty Diagnoses / Procedures Referred By Contac t Referred To Contact Radiology Diagnoses Primary cancer of right lower lobe of lung (HCC) Right lower lobe pulmonary nodule Radiotherapy follow-up examination 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) Procedures CT Chest Abdomen Pelvis W Contrast Renetta Ballesteros NP [address] [facility] [address] [place] [address] Phone: tel: fax: [address] [phone] Referral ID Status Reason Start Date Expiration Date Visits Re quested Visits Authorized [id number] Closed 06/23/2023 07/22/2024 1 1 Reason for Visit * Reason Comments Follow-up Prior CT Encounter Details Date Type Department Care Team (Late st Contact Info) Description 06/23/2023 11:00 AM CDT Office Visit [facility] Advanced Medicine Radiation Oncology [address] [facility] Advanced Medicine [place] [address] Renetta Ballesteros NP [address] [facility] [address] [place] [address] Primary cancer of right lower lobe of lung (HCC) [C34.31] (Primary Dx); Right lower lobe pulmonary nodule [R91.1]; Radiotherapy follow-up examination [Z09]; Secondary malignant neoplasm of mediastinal lymph node [...] on file Legal Sex Male 1:17 AM [employer]LE [employer] TE[employer] Gender Identity Not on file Sexual Orientation [...] - Inhaled Oxygen Concentration - - Weight 163.9 kg (361 lb 4.8 oz) 024 11:11 AM CDT Height 190.5 cm (6' 3 ) 06/23/2023 11:1 1 AM CDT Body Mass Index 45.16 06/23/2023 11:11 AM CDT documented in this encounter Progress Notes * Renetta Ballesteros NP - 06/23/2023 11:00 AM CDT Radiation Oncologist: Jacob Flynn MD Primary Care Physician: Clara Stanley PA Medical Oncologist: Kip Del Rio MD Surgeon: Jasper Canchola MD Referring Physician: No care sales team manager to display Date of Service: 06/23/2023 RADIATION ONCOLOGY FOLLOW UP NOTE IDENTIFYING DATA: Cancer Staging Carcinoid tumor of right lung Staging form: Lung, AJCC 8th Edition - Clinical: Stage IIIA (cT1c, cN2, cM0) - Unsigned (C34.31) Primary cancer of right lower lobe of lung (HCC) [C34.31] (primary encounter diagnosis) Plan: CT Chest Abdomen Pelvis W Contrast (R91.1) Right lower lobe pulmonary nodule [R91.1] Plan: CT Chest Abdomen Pelvis W Contrast (Z09) Radiotherapy follow-up examination [Z09] Plan: CT Chest Abdomen Pelvis W Contrast (C77.1) 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 He did not receive adjuvant chemo or radiation. He had biopsy proven high right paratracheal marcus recurrence and completed radiation therapy to the mediastinum, subcarinal lymph node, 60 Gy in 15fx on 02/21/2021. Patient is here today for follow up visit and review of restaging images to assess for progression of disease and post radiation toxicity. He is here unaccompanied today. He is doing well. Denies any issues/concerns. ROS A complete review of 10 systems was completed and negative unless noted above in history of presentillness or intake questionnaire. PHYSICAL EXAMINATION: Ht 190.5 cm (6' 3 ) Wt (!) 163.9 kg (361 lb 4.8 oz) BMI 45.16 kg/m?? Pain Score and Location 06/23/23 1111 PainSc: 0-No pain Physical Exam Constitutional: Appearance: Normal appearance. Pulmonary: Effort: Pulmonary effort is normal. Musculoskeletal: General: Normal range of motion. Neurological: General: No focal deficit present. Mental Status: He is oriented to person, place, and time. Psychiatric: Mood and Affect: Mood normal. Behavior: Behavior normal. The Karnofsky performance scale today is 90, Able to carry on normal activity; minor signs or symptoms of disease (ECOG equivalent 0). DIAGNOSTIC REPORTS REVIEWED: Imaging: I personally reviewed the CT imaging and compared to previous images. I subsequently reviewed with Dr. Jacob Flynn. Chest/Abdomen/Pelvic CT scan performed 06/23/23 demonstrates IMPRESSION: 1. Indeterminate 5 mm right omental nodule is slightly increased in size, and could represent a metastasis. Given the small size recommend follow up CT in 3 months as biopsy would not be feasible and this nodule is too small to accurately characterize with PET/CT. 2. No evidence of disease progression in the chest. Unchanged 9 mm right paratracheal node. Chem/LFT Lab History 09/18/2022 10:33 12/25/2022 09:57 Labs-Chem/LFT CrCl- Actual Body Weight (Cockcroft-Gault) 267.3 207.7 ASSESSMENT: 58 y.o.male with a history of metastatic low [...] 60 Gy in 15 fx on 02/21/2021. Today's review of restaging imaging, physical examination and review of systems demonstrates indeterminate 5mm right omental nodule is increased in size which could represent a metastasis. Otherwise no evidence of disease progression within the chest. I reviewed the new report/images with the patient PLAN: Patient will return to the office [...] Renetta Ballesteros NP- Radiation Oncology Cosigned by Jacob Flynn MD at 06/24/2023 10:18 PM CDT documented in this encounter Plan of Treatment Not on file documented as of this encounter Results * CT Chest Abdomen Pelvis W Contrast (09/23/2023 10:26 AM CDT) Anatomical Region Laterality Modality Body N/A Computed Tomogra phy 09/23/2023 11:2 9 AM CDT Impressions 09/23/2023 2:24 PM CDT 1. Multiple new small and subtle arterially enhancing foci throughout the liver, which are suspicious for metastatic disease. Further evaluation and characterization of extent is recommended with a dedicated liver MR. 2. ??Small right lower quadrant omental nodule is indeterminate. Recommend attention on follow-up imaging. Dictated by: Wayne Stevens M.D. The radiology attending physician has personally reviewed this study, and had reviewed and/or edited this written report and agrees with it. Electronically signed by: John Zuñiga M.D. 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 COMPARISON: 06/23/2023 and 06/11/2022 CT FINDINGS: ?? Chest: Stable postsurgical changes of right posterior thoracotomy and lower lobectomy. ??Unchanged pleural thickening and trace right pleural effusion in the right lung base. ??No left pleural effusion. ??No pneumothorax. ??Post radiation changes in the medial right lung apex. Stable 5 mm right middle lobe nodule (series 3 image 79). ??No new suspicious pulmonary nodules. Unchanged mildly enlarged 1.4 cm right hilar lymph node (series 2 image 63) and 1.0 cm right paratracheal lymph node (series 2 image 32). ??Unchanged subcentimeter prominent paraesophageal lymph nodes. No new or enlarging thoracic lymphadenopathy. ??Heart size is normal. Trace pericardial fluid. ??Thoracic aorta and main pulmonary artery are normal caliber. ??No central pulmonary embolism. ??Bilateral gynecomastia. ??Multiple tiny thyroid nodules. Abdomen/Pelvis: There are multiple new arterially enhancing lesions throughout the liver. ??For reference, there is a 8mm lesion in hepatic segment 3 (series 2 image 138), a 1.3 cm lesion in hepatic segment 6 (series 2 image 147), and a 1.1 cm lesion in hepatic segment 5 (series 2 image 154). ??There are numerous additional subtle enhancing lesions throughout the liver. ??Spleen, pancreas, adrenal glands appear normal. Kidneys enhance symmetrically without hydronephrosis. ??Urinary bladder appears normal. ??Prostate is present. The colon and small bowel are normal in course and caliber. ??Colonic diverticulosis without evidence of diverticulitis. ??Appendix is surgically absent. ??No evidence of bowel obstruction. ??No free intraperitoneal gas or fluid. ??There is a 7 mm enhancing omental nodule in the right lower quadrant, which is unchanged from 06/23/2023 but has gradually increased in size dating back to 06/11/2022. Abdominal aorta is normal in course and caliber. ??No pathologically enlarged abdominal or pelvic lymphadenopathy. No suspicious osseous lesions. Procedure Note John Zuñiga MD - 09/23/2023 EXAMINATION: Computed tomography of the chest, abdomen and pelvis with intravenous contrast HISTORY: Metastatic carcinoid tumor of right lung status post right lower lobectomy and radiation therapy TECHNIQUE: Transaxial computed tomographic images of the chest, abdomen and pelvis were obtained with intravenous contrast according to the standard protocol after the uneventful administration of 119 mL Opti-Ray 350 intravenous contrast. COMPARISON: 06/23/2023 and 06/11/2022 CT FINDINGS: Chest: Stable postsurgical changes of right posterior thoracotomy and lower lobectomy. Unchanged pleural thickening and trace right pleural effusion in the right lung base. No left pleural effusion. No pneumothorax. Post radiation changes in the medial right lung apex. Stable 5 mm right middle lobe nodule (series 3 image 79). No new suspicious pulmonary nodules. Unchanged mildly enlarged 1.4 cm right hilar lymph node (series 2 image 63) and 1.0 cm right paratracheal lymph node (series 2 image 32). Unchanged subcentimeter prominent paraesophageal lymph nodes. No new or enlarging thoracic lymphadenopathy. Heart size is normal. Trace pericardial fluid. Thoracic aorta and main pulmonary artery are normal caliber. No central pulmonary embolism. Bilateral gynecomastia. Multiple tiny thyroid nodules. Abdomen/Pelvis: There are multiple new arterially enhancing lesions throughout the liver. For reference, there is a 8mm lesion in hepatic segment 3 (series 2 image 138), a 1.3 cm lesion in hepatic segment 6 (series 2 image 147), and a 1.1 cm lesion in hepatic segment 5 (series 2 image 154). There are numerous additional subtle enhancing lesions throughout the liver. Spleen, pancreas, adrenal glands appear normal. Kidneys enhance symmetrically without hydronephrosis. Urinary bladder appears normal. Prostate is present. The colon and small bowel are normal in course and caliber. Colonic diverticulosis without evidence of diverticulitis. Appendix is surgically absent. No evidence of bowel obstruction. No free intraperitoneal gas or fluid. There is a 7 mm enhancing omental nodule in the right lower quadrant, which is unchanged from 06/23/2023 but has gradually increased in size dating back to 06/11/2022. Abdominal aorta is normal in course and caliber. No pathologically enlarged abdominal or pelvic lymphadenopathy. No suspicious osseous lesions. IMPRESSION: 1. Multiple new small and subtle arterially enhancing foci throughout the liver, which are suspicious for metastatic disease. Further evaluation and characterization of extent is recommended with a dedicated liver MR. 2. Small right lower quadrant omental nodule is indeterminate. Recommend attention on follow-up imaging. Dictated by: Wayne Stevens M.D. The radiology attending physician has personally reviewed this study, and had reviewed and/or edited this written report and agrees with it. Electronically signed by: John Zuñiga M.D. 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 Primary cancer of right lower lobe of lung (HCC) [C34.31] Right lower lobe pulmonary nodule [R91.1] Radiotherapy follow-up examination [Z09] Radiotherapy follow-up examination 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 documented in this encounter Care Teams Embossing Unit Operator Relationship Specialty Start Date End Date Clara Stanley PA [address] [place] [id number] PCP - General Nurse Practitioner 04/05/19 Jasper Canchola MD [address] [place] [address] Surgeon Thoracic Surgery 05/11/19 Alexis Lopez MD [address] [address] Dairy Associate Pulmonary Disease 05/11/19 Kip Del Rio MD [address] [place] [address] Medical Oncologist/Licensed Plumber Hematology and Oncology 05/11/19 Jacob Flynn MD [address] [place] [address] Radiation Oncologist Radiation Oncology 05/25/19 Renetta Ballesteros NP [address] [place] [address] Nurse Practitioner Radiation Oncology 06/11/22 documented as of this encounter
--- OUTSIDE RECORDS SUMMARY | 2024-03-02 03:42 | XMS_ITS | Encounter Summary ---
Author Organization [facility] Address [address] [place] [address] Care Team Providers Care Income Tax Administrator Name Role Phone Clara Stanley Primary Care Provider + Jasper Canchola MD Unavailable Alexis Lopez MD Unavailable Kip Del Rio MD Unavailable Jacob Flynn MD Unavailable Renetta Ballesteros NP Unavailable [phone] Reason for Referral * MRI/CAT/PET Scan (Routine) - Closed Specialty Diagnoses / Procedures Referred By Contac t Referred To Contact Radiology Diagnoses Malignant neoplasm of lower lobe of right lung (HCC) Primary cancer of right lower lobe of lung (HCC) Neuroendocrine carcinoma of lung (HCC) Procedures CT Chest Abdomen Pelvis W Contrast Renetta Ballesteros NP [address] [facility] [address] [place] [address] Phone: tel: fax: [address] [phone] Referral ID Status Reason Start Date Expiration Date Visits Re quested Visits Authorized [id number] Closed 03/16/2023 01/28/2024 1 1 Encounter Details Date Type Department Care Team (Late st Contact Info) Description 12/29/2022 Orders Only [facility] Advanced Medicine Radiation Oncology [address] [facility] [place] [address] Amelie Lorenzo MA Malignant neoplasm of lower lobe of right [...] on file Legal 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 Indeterminate 5 mm right omental nodule is slightly increased in size, and could represent a metastasis. Given the small size recommend follow up CT in 3 months as biopsy would not be feasible and this nodule is too small to accurately characterize with PET/CT. 2. No evidence of disease progression in the chest. Unchanged 9 mm right paratracheal node. Dictated by: Mukul Sosa M.D. The radiology attending physician has personally reviewed this study, and had reviewed and/or edited this written report and agrees with it. Electronically signed by: Ha Cardona M.D. Narrative 06/23/2023 6:46 PM CDT EXAMINATION: ??Computed tomography of the chest, abdomen and pelvis with intravenous contrast HISTORY: Lung cancer TECHNIQUE: ??Transaxial computed tomographic images of the chest, abdomen and pelvis were obtained with intravenous contrast according to the standard protocol after the uneventful administration of 100 mL Opti-Ray 350 intravenous contrast. COMPARISON: 12/25/2022, 09/18/2022, 03/04/2022 FINDINGS: ?? Chest: Post radiation changes in the right suprahilar region an anterior mediastinum, similar to prior. ??A right paratracheal node measures 9 mm, not significantly changed series 2, image 32. ??No new or enlarging lymph nodes in the chest. ??Changes of right lower lobectomy. ??Sub-5 mm nodules within the lungs are unchanged and may represent fissural or intrapulmonary lymph nodes. ??No new or enlarging pulmonary nodule. The heart size is normal. ??No pericardial effusion. Right thoracotomy defect. Abdomen/Pelvis: No suspicious liver lesion. ??Cholelithiasis. ??Adrenal glands, spleen, pancreas, kidneys are normal without hydronephrosis. ??No lymphadenopathy in the abdomen or pelvis. ??Abdominal aorta is mildly atherosclerotic but not aneurysmal. ??Colonic diverticulosis without diverticulitis. ??Urinary bladder is normal. ??Appendectomy change. Minimal central mesenteric stranding chronic appearing and unchanged. No suspicious osseous lesion. There is a 5 mm right omental nodule series 2 image 190, slightly increased from more recent prior exams and not present on 03/04/2022. Procedure Note Ha Cardona MD - 06/23/2023 EXAMINATION: Computed tomography of the chest, abdomen and pelvis with intravenous contrast HISTORY: Lung cancer TECHNIQUE: Transaxial computed tomographic images of the chest, abdomen and pelvis were obtained with intravenous contrast according to the standard protocol after the uneventful administration of 100 mL Opti-Ray 350 intravenous contrast. COMPARISON: 12/25/2022, 09/18/2022, 03/04/2022 FINDINGS: Chest: Post radiation changes in the right suprahilar region an anterior mediastinum, similar to prior. A right paratracheal node measures 9 mm, not significantly changed series 2, image 32. No new or enlarging lymph nodes in the chest. Changes of right lower lobectomy. Sub-5 mm nodules within the lungs are unchanged and may represent fissural or intrapulmonary lymph nodes. No new or enlarging pulmonary nodule. The heart size is normal. No pericardial effusion. Right thoracotomy defect. Abdomen/Pelvis: No suspicious liver lesion. Cholelithiasis. Adrenal glands, spleen, pancreas, kidneys are normal without hydronephrosis. No lymphadenopathy in the abdomen or pelvis. Abdominal aorta is mildly atherosclerotic but not aneurysmal. Colonic diverticulosis without diverticulitis. Urinary bladder is normal. Appendectomy change. Minimal central mesenteric stranding chronic appearing and unchanged. No suspicious osseous lesion. There is a 5 mm right omental nodule series 2 image 190, slightly increased from more recent prior exams and not present on 03/04/2022. IMPRESSION: 1. Indeterminate 5 mm right omental nodule is slightly increased in size, and could represent a metastasis. Given the small size recommend follow up CT in 3 months as biopsy would not be feasible and this nodule is too small to accurately characterize with PET/CT. 2. No evidence of disease progression in the chest. Unchanged 9 mm right paratracheal node. Dictated by: Muklu Sosa M.D. The radiology attending physician has personally reviewed this study, and had reviewed and/or edited this written report and agrees with it. Electronically signed by: Ha Cardona M.D. Renetta Ballesteros NP IMG CT PROCEDURES Final Result documented in this encounter Visit Diagnoses Diagnosis Malignant neoplasm of lower lobe of right lung (HCC)- Primary Primary cancer of right lower lobe of lung (HCC) 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) Primary cancer of right lower lobe of lung (HCC) Neuroendocrine carcinoma of lung (HCC) documented in this encounter Care Teams Income Tax Administrator Relationship Specialty Start Date End Date Clara Stanley PA [address] [place] [id number] PCP - General Nurse Practitioner 04/05/19 Jasper Canchola MD [address] [place] [address] Surgeon Thoracic Surgery 05/11/19 Alexis Lopez MD [address] [facility] [place] [address] Counselor Dormitory Pulmonary Disease 05/11/19 Kip Del Rio MD [address] [facility] [address] [place], [place] [id number] Medical Oncologist/Division Chair Hematology and Oncology 05/11/19 Jacob Flynn MD [address] [facility] [address] [place], [place] [id number] Radiation Oncologist Radiation Oncology 05/25/19 Renetta Ballesteros NP [address] [facility] [address] [place] [address] Nurse Practitioner Radiation Oncology 06/11/22 documented as of this encounter
--- OUTSIDE RECORDS SUMMARY | 2024-03-02 03:42 | XMS_ITS | Encounter Summary ---
Author Organization formerly [facility] Address [address] [place] [address] Care Team Providers Care Medical Information Specialist Name Role Phone Clara Stanley Primary Care Provider + Jasper Canchola MD Unavailable Alexis Lopez MD Unavailable Kip Del Rio MD Unavailable Jacob Flynn MD Unavailable [phone] Renetta Ballesteros NP Unavailable [phone] Reason for Referral * MRI/CAT/PET Scan (Routine) - Closed Specialty Diagnoses / Procedures Referred By Contac t Referred To Contact Radiology Diagnoses Malignant neoplasm of lower lobe of right lung (HCC) Primary cancer of right lower lobe of lung (HCC) Neuroendocrine carcinoma of lung (HCC) Procedures CT Chest Abdomen Pelvis W Contrast Renetta Ballesteros NP [address] [facility] [address] [place] [address] Phone: tel: fax: [address] [phone] Referral ID Status Reason Start Date Expiration Date Visits Re quested Visits Authorized [id number] Closed 03/16/2023 01/28/2024 1 1 Reason for Visit * MRI/CAT/PET Scan (Routine) - Closed Specialty Diagnoses / Procedures Referred By Contac t Referred To Contact Radiology Diagnoses Malignant neoplasm of lower lobe of right lung (HCC) Primary cancer of right lower lobe of lung (HCC) Neuroendocrine carcinoma of lung (HCC) Procedures CT Chest Abdomen Pelvis W Contrast Renetta Ballesteros, TJ [address] [facility] [address] [place] [address] Phone: tel: fax: [address] [phone] Referral ID Status Reason Start Date Expiration Date Visits Re quested Visits Authorized [id number] Closed 03/16/2023 01/28/2024 1 1 Encounter Details Date Type Department Care Team (Latest Contact Info) Description 06/23/2023 9:41 AM CDT - 06/23/2023 11:59 PM CDT Hospital Encounter [facility] [address] [place] [id number] Malignant neoplasm of lower lobe of right lung (HCC); Primary cancer of right lower lobe of lung (HCC); Neuroendocrine carcinoma of lung (HCC) Discharge [...] file 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[employer] Gender Identity Not on file Sexual Orientation [...] 1 capsule (50,000 Units total) by mouth fexofenadine (CHERELLE) 180 mg tabletIndications :Cough, persistent Take 1 tablet (180 mg total) by mouth daily 30 tablet 11 02/26/2022 fluticasone propionate (FLONASE) 50 mcg/actuation nasal sprayIndications: Cough, persistent Administer 2 sprays into each nostril daily 16 g 6 02/26/2022 multivitamin capsule Take 1 capsule by mouth daily nitroglycerin (NITROSTAT) 0.[address] 1 tablet (0.4 mg total) under the tongue every 5 (five) minutes as needed 02/12/2022 pravastatin (PRAVACHOL) 40 mg tablet 10/17/2022 albuterol [...] per patient's formulary 1 each 02/26/2022 4 fluticasone-umecl idin-vilanter (Trelegy Ellipta) 100-62.5-25 mcg inhalerIndication s:Bronchospasm Prevention with COPD Inhale 1 puff daily 60 each 08/08/2022 4 liraglutide, weight loss, (Saxenda) 3 mg/0.5 [...] TABLET BY MOUTH DAILY. *VIAL* 30 tablet 2 03/23/2023 4 pravastatin (PRAVACHOL) 20 mg tabletIndications :hyperlipidemia Take 1 tablet (20 mg total) by mouth every morning 04/10/2019 4 roflumilast (DALIRESP) 500 mcg tabletIndications :Prevention of Bronchospasm with Chronic Bronchitis Take 1 tablet (500 mcg total) by mouth daily 30 tablet 3 09/19/2022 4 documented as of this encounter Discharge Disposition Disposition Code Departure Means Destination Discharge to home or self care documented in this encounter Plan of Treatment Not on file documented as of this encounter Procedures Procedure Name Priority Date/Time Associated Diagnosis Comments CT CHEST ABDOMEN PELVIS W CONTRAST Schedule Routine, Read Routine (OP Routine) 06/23/2023 10:45 AM CDT Malignant neoplasm of lower lobe of right [...] by: Ha Cardona M.D. Renetta Ballesteros NP IM CT PROCEDURES Final Result documented in this [...] intravenous, Once in imaging, contrast, Starting on 06/23/23 at 1035, For 1 dose Contrast Given 06/23/2023 10:45 AM CDT 119 mL documented in this encounter Orders Medications Ordered That Vikram ht Not Have Been Administered Count Last Ordered Date First Ordered Date ioversoL (OPTIRAY 350) syringe 125 mL 1 11/2023 documented in this encounter Care Teams Medical Information Specialist Relationship Specialty Start Date End Date Clara Stanley PA [address] [place] [id number] PCP - General Nurse Practitioner 04/05/19 Jasper Canchola MD [address] [place] [address] Surgeon Thoracic Surgery 05/11/19 Alexis Lopez MD [address] [address] Commercial Loan Specialist Pulmonary Disease 05/11/19 Kip Del Rio MD [address] [place] [address] Medical Oncologist/Concrete Sculptor Hematology and Oncology 05/11/19 Jacob Flynn MD [address] [place] [address] Radiation Oncologist Radiation Oncology 05/25/19 Renetta Ballesteros NP [address] [place] [address] Nurse Practitioner Radiation Oncology 06/11/22 documented as of this encounter
--- OUTSIDE RECORDS SUMMARY | 2024-03-02 03:42 | XMS_ITS | Encounter Summary ---
Author Organization [facility] Address [address] [place] [address] Care Team Providers Care Motor Analyst Name Role Phone Clara Stanley Primary Care Provider + Jasper Canchola MD Unavailable Alexis Lopez MD Unavailable [phone] Kip Del Rio MD Unavailable [phone] Jacob Flynn MD Unavailable Renetta Ballesteros NP Unavailable Reason for Visit * Diagnostic Lab (Routine) - Canceled Specialty Diagnoses / Procedures Referred By Contac t Referred To Contact Lab Diagnoses Primary cancer of right lower lobe of lung (HCC) Procedures Guardant - Miscellaneous Test Kip Del Rio MD [address] [facility] [address] [place] [address] Phone: tel: fax: Referral ID Status Reason Start Date Expiration Date V isits Requested Visits Authorized [id number] Canceled 10/01/2023 10/30/2024 1 1 Encounter Details Date Type Department Care Team (Late st Contact Info) Description 10/01/2023 4:45 PM CDT Lab [facility] [address] [facility] 7th [place] [address] Primary cancer of right lower lobe of [...] on file 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 Gender Identity Not on file Sexual Orientation Straight 09/22/2019 8: 21 PM CDT 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 on file Not on file documented as of this encounter Plan of Treatment Not on file documented as of this encounter Procedures Procedure Name Priority Date/Time Associated Diagnosis Comments EGFR STAT 10/01/2023 4:55 PM CDT Primary cancer of right lower lobe of lung (HCC) DIFFERENTIAL AUTO Routine 10/01/2023 4:5 5 PM CDT Primary cancer of right lower lobe of lung (HCC) CBC WITH AUTO DIFFERENTIAL Routine 10/01/2023 4:55 PM CDT Primary cancer of right lower lobe of lung (HCC) APTT STAT 10/01/2023 4:55 PM CDT Primary cancer of right lower lobe of lung (HCC) PROTIME-INR STAT 10/01/2023 4:55 PM CDT Primary cancer of right lower lobe of lung (HCC) COMPREHENSIVE METABOLIC PANEL STAT 10/01/2023 4:55 PM CDT Primary cancer of right lower lobe of lung (HCC) [id number] CDX Routine 10/01/2023 4:44 PM CDT Primary cancer of right lower lobe of lung (HCC) documented in this encounter Results * eGFR (10/01/2023 4:55 PM CDT) eGFR >90 >=60 mL/min/1. 73 [...] of Race in Diagnosing Kidney Disease, JASN 202). The CKD-EPI equation should not be used for patients with unstable renal function and has not been validated in children and those over 70. Current interpretive data was last reviewed 2021. Blood 10/01/2023 4:55 PM CDT 10/01/2023 5:03 PM CDT us Kip Del Rio MD LAB BLOOD ORDERABLES Final Result [facility] Department [place] [address] * (ABNORMAL) Differential, auto (10/01/2023 4:55 PM CDT) Neutrophil abs 7.3(H) 1.5 - 6.5 K/cumm Imm gran abs 0.1 0.0 - 0.1 K/cumm [facility] Lymphocyte abs 1.6 0.8 - 3.3 K/cumm [facility] Monocyte abs 1.2(H) 0.2 - 0.8 K/cumm [facility] Eosinophil abs 0.4 0.0 - 0.5 K/cumm [facility] Basophil abs 0.1 0.0 - 0.1 K/cumm [facility] Neutrophil pct 68.8 % [facility] Comment: Interpretive Data Percent cell count reference ranges are not reported, since discordance with absolute values may lead to misinterpretation of CBC data. Current Interpretive Data was last revised on 2017. Imm gran pct 0.6 % [facility] Comment: Interpretive Data Percent cell count reference ranges are not reported, since discordance with absolute values may lead to misinterpretation of CBC data. Current Interpretive Data was last revised on 2017. Lymphocyte pct 14.7 % [facility] Comment: Interpretive Data Percent cell count reference ranges are not reported, since discordance with absolute values may lead to misinterpretation of CBC data. Current Interpretive Data was last revised on 2017. Monocyte pct 11.5 % [facility] Comment: Interpretive Data Percent cell count reference ranges are not reported, since discordance with absolute values may lead to misinterpretation of CBC data. Current Interpretive Data was last revised on 2017. Eosinophil pct 3.7 % [facility] Comment: Interpretive Data Percent cell count reference ranges are not reported, since discordance with absolute values may lead to misinterpretation of CBC data. Current Interpretive Data was last revised on 2017. Basophil pct 0.7 % [facility] Comment: Interpretive Data Percent cell count reference ranges are not reported, since discordance with absolute values may lead to misinterpretation of CBC data. Current Interpretive Data was last revised on 2017. Blood 10/01/2023 4:55 PM CDT 10/01/2023 5:01 PM CDT us Kip Del Rio MD LAB BLOOD ORDERABLES Final Result [facility] [place] [address] * Protime-INR (10/01/2023 4:55 PM CDT) PT 10.6 9.7 - 13.0 sec INR 0.98 0.90 - 1.[address] [facility] Comment: Interpretive data Oral anticoagulant therapeutic ranges: Venous thromboembolism prophylaxis or treatment: 2.0-3.0 CARDIOLOGY Standard range: 2.0-3.0 High-intensity range: 2.5-3.5 Refer to indication-specific guidelines for appropriate target ranges for prosthetic heart valve replacement. Current interpretive data was last revised on 2019. Blood 10/01/2023 4:55 PM CDT 10/01/2023 5:01 PM CDT Kip Del Rio MD LAB BLOOD ORDERABLES Final Result Performing Organization Address City/[facility] Co de Phone Number [facility] [place] [address] * aPTT (10/01/2023 4:55 PM CDT) Pathologist [facility] aPTT 33 28 - 38 sec Comment: Interpretive Data Heparin therapeutic range: 66.0 - 100.0 seconds. Range based on correlation with therapeutic heparin activity range of 0.3 - 0.7 Units/mL. Current interpretive data was last revised on 2022. Blood 10/01/2023 4:55 PM CDT 10/01/2023 5:01 PM CDT us Kip Del Rio MD LAB BLOOD ORDERABLES Final Result Performing Organization Address City/State/[facility] Co de Phone Number [facility] [place] [address] * (ABNORMAL) CBC with auto differential (10/01/2023 4:55 PM CDT) WBC 10.6(H) 3.8 - 9.9 K/cumm Hgb 14.2 13.0 - 17.5 g/dL [facility] Hct 43.3 38.9 - 50.3 % [facility] Plt 247 150 - 400 K/cumm [facility] MPV 12.1 9.1 - 12.[address] [facility] RBC 4.92 4.30 - 5.80 M/cumm [facility] MCV 88.0 81.3 - 96.[address] [facility] MCH 28.9 27.1 - 33.[address] [facility] MCHC 32.8 32.3 - 35.7 g/dL [facility] RDW CV 13.4 11.1 - 14.9 % [facility] RDW SD 43.4 35.7 - 48.[address] [facility] NRBC abs 0.00 0.00 - 0.01 K/cumm [facility] Blood 10/01/2023 4:55 PM CDT 10/01/2023 5:01 PM CDT us Kip Del Rio MD LAB BLOOD ORDERABLES Final Result [facility] [place] [address] * (ABNORMAL) Comprehensive metabolic panel (10/01/2023 4:55 PM CDT) [facility] Sodium 140 135 - 145 mmol/L Potassium, pl 4.0 3.3 - 4.9 mmol/L [facility] Chloride 103 97 - 110 mmol/L [facility] CO2 28 22 - 32 mmol/L [facility] Anion gap 9 2 - 15 mmol/L [facility] BUN 13 6 - 25 mg/dL [facility] Creatinine 0.73(L) 0.80 - 1.30 mg/dL [facility] Glucose 96 70 - 199 mg/dL [facility] Comment: Interpretive Data Fasting glucose >/= [...] 2022. Calcium 10.0 8.5 - 10.3 mg/dL [facility] Bilirubin, total 0.3 0.1 - 1.2 mg/dL [facility] Protein, pl 7.9 6.5 - 8.5 g/dL [facility] Albumin 4.5 3.5 - 5.0 g/dL [facility] Alk phos 95 40 - 130 Units/L [facility] ALT 27 7 - 55 Units/L [facility] AST 28 10 - 50 Units/L [facility] Blood 10/01/2023 4:55 PM CDT 10/01/2023 5:01 PM CDT Kip Del Rio MD LAB BLOOD ORDERABLES Final Result [facility] [place] [address] * [facility] 360 CDx (10/01/2023 4:44 PM CDT) MSI-HIGH NOT DETECTED 10/07/2023 6:37 AM CDT [facility] Blood specimen (specimen) (Blood, Venous) 10/01/2023 4:44 PM CDT 10/02/2023 12:40 PM CDT Narrative This result has genomic variants that were not included in this document. Kip Del Rio MD LAB GENETIC TESTING Final Result [facility] [address] [place] [id number] documented in this encounter Visit Diagnoses Diagnosis Primary cancer of right lower lobe of lung (HCC) documented in this encounter Care Teams Motor Analyst Relationship Specialty Start Date End Date Clara Stanley PA [address] [place] [address] PCP - General Nurse Practitioner 04/05/19 Jasper Canchola MD [address] [place] [address] [id number] Surgeon Thoracic Surgery 05/11/19 Alexis Lopez MD [address] [address] [employer] Pulmonary Disease 05/11/19 Kip Del Rio MD [address] [place] [address] Medical Oncologist/Retail Shift Manager Hematology and Oncology 05/11/19 Jacob Flynn MD [address] [place] [address] Radiation Oncologist Radiation Oncology 05/25/19 Renetta Ballesteros NP [address] [place] [address] Nurse Practitioner Radiation Oncology 06/11/22 documented as of this encounter
--- OUTSIDE RECORDS SUMMARY | 2024-03-02 03:42 | XMS_ITS | Encounter Summary ---
Author Organization [facility] Healthcare Address [address] [place] [address] Care Team Providers Care Flame Brazing Machine Operator Name Role Phone Clara Stanley Primary Care Provider + Jasper Canchola MD Unavailable Alexis Lopez MD Unavailable Kip Del Rio MD Unavailable Jacob Flynn MD Unavailable Renetta Ballesteros NP Unavailable [phone] Reason for Visit * Reason Comments Follow-up Encounter Details Date Type Department Care Team (Late st Contact Info) Description 08/26/2023 3:00 PM CDT Office Visit [facility] Pulmonology [address] [facility] [address] [place] [address] Tita Encarnacion NP [address] [place] [address] [address] [place] [address] Lung nodule (Primary Dx); LEONOR (obstructive sleep apnea); Mild intermittent asthma without complication; Cough, persistent Social History Tobacco Use Types Packs/Day Years [...] on file 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 Gender Identity Not on file Sexual Orientation Straight 09/22/2019 8: 21 PM CDT 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 on file Not on file documented as of this encounter Last Filed Vital Signs Vital Sign Reading Time Taken Comments Blood Pressure 139/81 08/26/2023 3:06 PM CDT Pulse 78 08/26/2023 3:06 PM CDT Temperature 36.8 ??C (98.2 ??F) 08/26/2023 3:06 PM CD T Respiratory Rate 20 08/26/2023 3:06 PM CDT Oxygen Saturation 98% 08/26/2023 3:06 PM CDT Inhaled Oxygen Concentration - - Weight 163.3 kg (360 lb) 08/26/2023 3:06 PM CDT Height 193 cm (6' 4 ) 08/26/2023 3:06 PM CDT Body Mass Index 43.82 08/26/2023 3:06 PM CDT documented in this encounter Ordered Prescriptions Prescription Sig Dispense Quantity Refills Last Filled Start Date End Date pantoprazole DR (PROTONIX) 40 mg EC tabletIndications: Treatment of Non-Bleeding Gastric Disorder Take 1 tablet (40 mg total) by mouth daily 30 tablet 2 08/26/2023 12/07/2023 documented in this encounter Progress Notes * Tita Encarnacion NP - 08/26/2023 3:00 PM CDT Images from the original note were not included. Patient ID: Kwaku Kulkarni is a 58 y.o. male. HPI. Patient is a 58 y.o. male returns for follow-up of LEONOR, cough, lung nodule, and asthma. The patient continues to use Trelegy one inhalation once a day. The patient states he rarely uses albuterol inhaler. The patient states he is using Singulair. The patient states he will have a cough after he eats ice cream or drinks milk. He states he also has a cough with exertion. The patient states cough is productive. The patient continues to follow with [facility]. The patient states he has difficulty wearing his CPAP. His CPAP is set at 5-20 cm of water pressure while sleeping. The patient's compliance report shows an average use of 4 hours and 6 minutes per night on 30% nights, hisAHI is 1.7 times per hour sleep. The patient did see the education teacher that state he can not determine a reason for his cough. Chief Complaint Patient presents with Follow-up Current Medications: Outpatient Encounter Medications as of 08/26/2023 Medication Sig Dispense Refill albuterol 2.5 mg /3 mL (0.083 %) nebulizer solution Take 3 mL (2.5 mg total) by nebulization every 6 (six) hours as needed for wheezing for up to 480 doses 360 mL 3 albuterol HFA (PROVENTIL HFA,VENTOLIN HFA,PROAIR HFA) 90 mcg/actuation inhaler Inhale 2 puffs every6 (six) hours as needed for wheezing Fill per patient's formulary 1 each 11 amLODIPine (NORVASC) 10 mg tablet Take 1 tablet (10 mg total) by mouth every morning ascorbic acid (VITAMIN C) 1,000 mg tablet Take 1 tablet (1,000 mg total) by mouth daily chlorthalidone (HYGROTON) 25 mg tablet cholecalciferol (VITAMIN D-3) 50,000 unit capsule Take 1 capsule (50,000 Units total) by mouth fexofenadine (HUI) 180 mg tablet Take 1 tablet (180 mg total) by mouth daily 30 tablet 11 fluticasone propionate (FLONASE) 50 mcg/actuation nasal spray Administer 2 sprays into each nostrildaily 16 g 6 hxvpdrttqyp-ikfbhshmr-uxropdxd (Trelegy Ellipta) 100-62.5-25 mcg inhaler Inhale 1 puff daily 60 each 11 montelukast (SINGULAIR) 10 mg tablet TAKE (1) TABLET BY MOUTH ONCE DAILY IN THE EVENING. *VIAL* 90 tablet 0 multivitamin capsule Take 1 capsule by mouth daily nitroglycerin (NITROSTAT) 0.[address] 1 tablet (0.4 mg total) under the tongue every 5 (five) minutes as needed pantoprazole DR (PROTONIX) 40 mg EC tablet TAKE (1) TABLET BY MOUTH DAILY. *VIAL* 30 tablet 2 pravastatin (PRAVACHOL) 40 mg tablet roflumilast (DALIRESP) 500 mcg tablet Take 1 tablet (500 mcg total) by mouth daily 30 tablet 3 liraglutide, weight loss, (Saxenda) 3 mg/0.5 mL (18 mg/3 mL) pen injector Inject 0.6-3 mg under theskin daily (Patient not taking: Reported on 12/25/2022) olopatadine-mometasone (Ryaltris) 665-25 mcg/spray spray,non-aerosol Administer into affected nostril(s) 2 (two) times a day pravastatin (PRAVACHOL) 20 mg tablet Take 1 tablet (20 mg total) by mouth every morning (Patient not taking: Reported on 08/26/2023) No facility-administered encounter medications on file as of 08/26/2023. Review of Systems Constitutional: Negative for fever. HENT: Negative for tinnitus. Eyes: Negative for visual disturbance. Respiratory: Positive for cough, shortness of breath and wheezing. Cardiovascular: Negative for chest pain. Gastrointestinal: Negative for diarrhea, nausea and vomiting. Skin: Negative for rash. Neurological: Negative for dizziness. BP 139/81 (BP Location: Right arm, Patient Position: Sitting) Pulse 78 Temp 36.8 ??C (98.2 ??F)(Tympanic) Resp 20 Ht 193 cm (6' 4 ) Wt (!) 163.3 kg (360 lb) SpO2 98% BMI 43.82 kg/m?? Physical Exam Constitutional: General: He is not in acute distress. HENT: Mouth/Throat: Pharynx: No oropharyngeal exudate. Eyes: Pupils: Pupils are equal, round, and reactive to light. Cardiovascular: Rate and Rhythm: Normal rate and regular rhythm. Pulmonary: Effort: Pulmonary effort is normal. Breath sounds: Normal breath sounds. No wheezing. Abdominal: Palpations: Abdomen is soft. Musculoskeletal: Cervical back: Normal range of motion. Imaging: No results found. Assessment & Plan: Diagnoses and all orders for this visit: Lung nodule (Primary) Assessment & Plan: He is being followed at the [facility] with serial chest CTs LEONOR (obstructive sleep apnea) Assessment & Plan: The patient was encouraged to increase use of his CPAP set at 5-20 cm pressure. The patient's DME is [employer]. Mild intermittent asthma without complication Assessment & Plan: Patient will continue with Trelegy one inhalation once a day. The patient will continue with the albuterol inhaler nebulizer as needed 4 times a day for shortness of breath. The patient continue withSingulair. The patient is also taking Hui. Cough, persistent Assessment & Plan: The patient did see the education teacher but he did not reveal a reason for the cough. The patient states he coughs if he does drink milk or eats ice cream or, exerts himself. Return in about 6 months (around 02/25/2024). Tita Encarnacion NP Cosigned by Alexis Lopez MD at 08/26/2023 3:28 PM CDT documented in this encounter Miscellaneous Notes * Assessment & Plan Note - Tita Encarnacion NP - 08/26/2023 3:24 PM CDT Associated Problem(s): Mild intermittent asthma without complication Patient will continue with Trelegy one inhalation once a day. The patient will continue with the albuterol inhaler nebulizer as needed 4 times a day for shortness of breath. The patient continue withSingulair. The patient is also taking Hui. * Assessment & Plan Note - Tita Encarnacion NP - 08/26/2023 3:23 PM CDT Associated Problem(s): LEONOR (obstructive sleep apnea) The patient was encouraged to increase use of his CPAP set at 5-20 cm pressure. The patient's DME is [employer]. * Assessment & Plan Note - Tita Encarnacion NP - 08/26/2023 3:23 PM CDT Associated Problem(s): Cough, persistent The patient did see the education teacher but he did not reveal a reason for the cough. The patient states he coughs if he does drink milk or eats ice cream or, exerts himself. * Assessment & Plan Note - Tita Encarnacion NP - 08/26/2023 3:23 PM CDT Associated Problem(s): Lung nodule (Deleted) He is being followed at the [facility] with serial chest CTs * Addendum Note - Tita Encarnacion NP - 08/26/2023 3:00 PM CDTAddended by: TITA ENCARNACION on: 08/26/2023 03:26 PM Modules accepted: Orders documented in this encounter Plan of Treatment Not on file documented as of this encounter Visit Diagnoses Diagnosis Lung nodule- Primary Other diseases of lung, not elsewhere classified LEONOR (obstructive sleep apnea) Obstructive sleep apnea (adult) (pediatric) Mild intermittent asthma without complication Cough, persistent documented in this encounter Discontinued Medications Medication Sig Discontinue Reason Start Date End Da te pantoprazole DR (PROTONIX) 40 mg EC tabletIndications:Cough, persistent TAKE (1) TABLET BY MOUTH DAILY. *VIAL* Reorder 03/23/2023 08/26/2023 documented as of this encounter Care Teams Flame Brazing Machine Operator Relationship Specialty Start Date End Date Clara Stanley PA [address] [place] [id number] PCP - General Nurse Practitioner 04/05/19 Jasper Canchola MD [address] [place] [address] Surgeon Thoracic Surgery 05/11/19 Alexis Lopez MD [address] [address] Polysomnography Technician Pulmonary Disease 05/11/19 Kip Del Rio MD [address] [facility] [address] [place] [address] Medical Oncologist/Corporate Logistics Manager Hematology and Oncology 05/11/19 Jacob Flynn MD [address] [facility] [address] [place] [address] Radiation Oncologist Radiation Oncology 05/25/19 Renetta Ballesteros NP [address] [facility] [address] [place] [address] Nurse Practitioner Radiation Oncology 06/11/22 documented as of this encounter
--- OUTSIDE RECORDS SUMMARY | 2024-03-02 03:42 | XMS_ITS | Encounter Summary ---
Author Organization [facility] Healthcare Address [address] [place] [address] Care Team Providers Care Filter Press Operator Name Role Phone Clara Stanley Primary Care Provider + Jasper Canchola MD Unavailable Alexis Lopez MD Unavailable Kip Del Rio MD Unavailable Jacob Flynn MD Unavailable [phone] Renetta Ballesteros NP Unavailable Encounter Details Date Type Department Care Team (Late st Contact Info) Description 09/25/2023 Telephone [facility] Advanced Medicine Radiation Oncology [address] [facility] Advanced [place] [address] Neal Frias MD [address] [facility] [address] [place] [address] Social History Tobacco Use Types Packs/Day Years [...] on file 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 Kulkarni to review the results of the MRI liver obtained yesterday, which Dr. Flynn and I were able to review. Unfortunately, the suspicious hepatic lesions seen on CT are consistentwith metastatic disease. There are approximately 30 small hepatic lesions. We will reconnect him with Dr. Del Rio, who he has seen in the past. After discussion, the patient's questions were answered to his apparent satisfaction, and he was agreeable with the plan. documented in this encounter Plan of Treatment Not on file documented as of this encounter Visit Diagnoses Not on filedocumented in this encounter Care Teams Filter Press Operator Relationship Specialty Start Date End Date Clara Stanley PA [address] [place] [address] PCP - General Nurse Practitioner 04/05/19 Jasper Canchola MD [address] [place] [address] Surgeon Thoracic Surgery 05/11/19 Alexis Lopez MD [address] [facility] [address] [address] Belt Molder Pulmonary Disease 05/11/19 Kip Del Rio MD [address] [facility] [address] [place] [address] Medical Oncologist/Personal Lines Account Executive Hematology and Oncology 05/11/19 Jacob Flynn MD [address] [facility] [address] [place] [address] Radiation Oncologist Radiation Oncology 05/25/19 Renetta Ballesteros NP [address] [facility] [address] [place], [place] [address] Nurse Practitioner Radiation Oncology 06/11/22 documented as of this encounter
--- OUTSIDE RECORDS SUMMARY | 2024-03-02 03:42 | XMS_ITS | Encounter Summary ---
Author Organization [facility] Address [address] [place] [address] Care Team Providers Care Die Repair Machinist Name Role Phone Clara Stanley Primary Care Provider + Jasper Canchola MD Unavailable Alexis Lopez MD Unavailable Kip Del Rio MD Unavailable Jacob Flynn MD Unavailable Renetta Ballesteros NP Unavailable [phone] Reason for Referral * MRI/CAT/PET Scan (Routine) - Closed Specialty Diagnoses / Procedures Referred By Contrebekah t Referred To Contact Radiology Diagnoses Primary cancer of right lower lobe of lung (HCC) Radiotherapy follow-up examination Procedures MRI Abdomen Liver W WO Contrast Renetta Ballesteros NP [address] [facility] [address] [place] [address] Phone: tel: fax: [address] [phone] Referral ID Status Reason Start Date Expiration Date Visits Re quested Visits Authorized [id number] Closed 09/23/2023 10/22/2024 1 1 Reason for Visit * Reason Comments Follow-up Prior CT Encounter Details Date Type Department Care Team ([facility] Contact Info) Description 09/23/2023 10:00 AM CDT Office Visit [facility] Advanced Medicine Radiation Oncology [address] [facility] [place] [address] Renetta Ballesteros NP [address] [facility] [address] [place] [address] Primary cancer of right lower lobe of lung (HCC) [C34.31] (Primary Dx); Radiotherapy follow-up examination [Z09] Social History Tobacco Use Types Packs/Day Years [...] on file 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 Gender Identity Not on file Sexual Orientation [...] - Inhaled Oxygen Concentration - - Weight 156.1 kg (344 lb 3.2 oz) 024 10:38 AM CDT Height 193 cm (6' 4 ) 09/23/2023 10:38 AM CDT Body Mass Index 41.9 09/23/2023 10:38 AM CDT documented in this encounter Progress Notes * Renetta Ballesteros NP - 09/23/2023 10:00 AM CDT Radiation Oncologist: Jacob Flynn MD Primary Care Physician: Clara Stanley PA Medical Oncologist: Kip Del Rio MD Surgeon: Jasper Canchola MD Referring Physician: No care steam pressure chamber operator to display Date of Service: 09/23/2023 RADIATION ONCOLOGY FOLLOW UP NOTE IDENTIFYING DATA: [...] Gy in 15fx on 02/21/2021. He is here unaccompanied today. He recently had a 15-16lbs weight loss. He is trying to eat better and exercise more. Doing well. Denies any concerns today. Last imaging in June showed a new small indeterminate 5 mm right omental nodule. Patient is here today for follow up visit and review of restaging images to assess for progression of disease and post radiation toxicity. ROS A complete review of 10 systems was completed and negative unless noted above in history of presentillness or intake questionnaire. PHYSICAL EXAMINATION: Ht 193 cm (6' 4 ) Wt (!) 156.1 kg (344 lb 3.2 oz) BMI 41.90 kg/m?? Pain Score and Location 09/23/23 1038 PainSc: 0-No pain Physical Exam Constitutional: Appearance: [...] Dr. Jacob Flynn. Chest/Abdomen/Pelvic CT scan performed 09/23/23 demonstrates IMPRESSION: 1. Multiple new small and subtle arterially enhancing foci throughout the liver, which are suspicious for metastatic disease. Further evaluation and characterization of extent is recommended with a dedicated liver MR. 2. Small enhancing right lower quadrant omental nodule has gradually increased in size from 06/11/2022 and is indeterminate. Recommend attention on follow-up imaging. Chem/LFT Lab History 12/25/2022 09:57 09/23/2023 09:47 Labs-Chem/LFT CrCl- Actual Body Weight (Cockcroft-Gault) 207.7 227.7 ASSESSMENT: 58 y.o.male with a history of [...] physical examination and review of systems demonstrates new enhancing foci in the liver concerning for metastatic disease. . I reviewed the new report/images withthe patient PLAN: Patient will return to the office next available with a restaging MRI of the liver . RAD ONC PAIN PLAN: The patient is not currently having any pain that requires changes in pain management. No medication changes made at this office visit. All questions answered at this time. Patient was advised to contact our office at any time with any questions or concerns. Renetta Ballesteros NP- Radiation Oncology Cosigned by Jacob Flynn MD at 09/28/2023 2:06 PM CDT documented in this encounter Plan of Treatment Not on file documented as of this encounter Results * MRI Abdomen Liver [...] signed by: Momo Garcia M.D. Renetta Ballesteros BRASSIERE CUP MOLD CUTTER IMG MRI PROCEDURES Final Result documented in this encounter Visit Diagnoses Diagnosis Primary cancer of right lower lobe of lung (HCC) [C34.31]- Primary Radiotherapy follow-up examination [Z09] Radiotherapy follow-up examination Primary cancer of right lower lobe of lung (HCC) [C34.31] Radiotherapy follow-up examination [Z09] Radiotherapy follow-up examination documented in this encounter Historical Medications * This list may reflect changes made after this encounter. semaglutide (Wegovy) 0.25 mg/0.5 mL auto-injector Inject 0.5 mL (0.25 mg total) under the skin once a week 09/22/2023 12/24/2023 added in this encounter Care Teams Die Repair Machinist Relationship Specialty Start Date End Date Clara Stanley PA [address] [place] [address] PCP - General Nurse Practitioner 04/05/19 Jasper Canchola MD [facility] [place] [address] Surgeon Thoracic Surgery 05/11/19 Alexis Lopez MD [address] [place] [address] Partition Setter Pulmonary Disease 05/11/19 Kip Del Rio MD [address] [facility] [address] [place] [address] Medical Oncologist/Contaminated Land Consultant Hematology and Oncology 05/11/19 Jacob Flynn MD [address] [facility] [address] [place] [address] Radiation Oncologist Radiation Oncology 05/25/19 Renetta Ballesteros NP [address] [facility] [address] [place] [address] Nurse Practitioner Radiation Oncology 06/11/22 documented as of this encounter
--- OUTSIDE RECORDS SUMMARY | 2024-03-02 03:42 | XMS_ITS | Encounter Summary ---
Author Organization [facility] Address [address] [place] [address] Care Team Providers Care Baggage Handling Supervisor Name Role Phone Clara Stanley Primary Care Provider + Jasper Canchola MD Unavailable Alexis Lopez MD Unavailable Kip Del Rio MD Unavailable Jacob Flynn MD Unavailable Renetta Ballesteros NP Unavailable [phone] Reason for Referral * MRI/CAT/PET Scan (Routine) - Closed Specialty Diagnoses / Procedures Referred By Contac t Referred To Contact Radiology Diagnoses Primary cancer of right lower lobe of lung (HCC) Right lower lobe pulmonary nodule Radiotherapy follow-up examination 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) Procedures CT Chest Abdomen Pelvis W Contrast Renetta Ballesteros NP [address] [facility] [address] [place] [address] Phone: tel: fax: [address] [phone] Referral ID Status Reason Start Date Expiration Date Visits Re quested Visits Authorized [id number] Closed 06/23/2023 07/22/2024 1 1 Reason for Visit * MRI/CAT/PET Scan (Routine) - Closed Specialty Diagnoses / Procedures Referred By Contac t Referred To Contact Radiology Diagnoses Primary cancer of right lower lobe of lung (HCC) Right lower lobe pulmonary nodule Radiotherapy follow-up examination 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 Renetta Ballesteros NP IMG CT PROCEDURES Final Result * POCT creatinine (09/23/2023 9:47 AM CDT) Creatinine POC 0.8 0.7 - 1.3 mg/dL Blood 09/23/2023 9:47 AM CDT 09/23/2023 9:47 AM CDT Renetta Ballesteros NP LAB POCT ORDERABLES - DE VICE Final Result 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 documented in this encounter Administered Medications Inactive Administered Medications - up to 3 most recent administrations Medication Order MAR Action Action Date Dose Rate Site ioversoL (OPTIRAY 350) syringe 125 mL 125 mL, intravenous, Once in imaging, contrast, Starting on Thu09/23/23 at 1020, For 1 dose Contrast Given 09/23/2023 10:22 AM CDT 119 mL documented in this encounter Orders Medications Ordered That Vikram ht Not Have Been Administered Count Last Ordered Date First Ordered Date ioversoL (OPTIRAY 350) syringe 125 mL 1 12/2023 documented in this encounter Care Teams Baggage Handling Supervisor Relationship Specialty Start Date End Date Clara Stanley PA [address] [place] [address] PCP - General Nurse Practitioner 04/05/19 Jasper Canchola MD [address] [place] [address] Surgeon Thoracic Surgery 05/11/19 Alexis Lopez MD [address] [address] Strategic Advisor Pulmonary Disease 05/11/19 Kip Del Rio MD [address] [place] [address] Medical Oncologist/Gore Cutter Hematology and Oncology 05/11/19 Jacob Flynn MD [address] [place] [address] Radiation Oncologist Radiation Oncology 05/25/19 Renetta Ballesteros NP [address] [place] [address] Nurse Practitioner Radiation Oncology 06/11/22 documented as of this encounter
--- OUTSIDE RECORDS SUMMARY | 2024-03-02 03:42 | XMS_ITS | Encounter Summary ---
Author Organization 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 NPO Status Verified: Yes- 6 hrs before procedure time Factory Focus Technician to and from procedure (if NO document why/plan): Yes - Recovery time reviewed (including pack overnight bag just in case): Yes-4 hours from start of biopsy to end of recovery Reviewed 23 hour observation stay for all kidney, spleen biopsies: N/A Prescribed Blood Thinners?: N/A If yes, date thinners stopped: Instructions from prescriber on when to restart?: Prescribed Diabetic medication?: N/A If yes, what directions given by prescriber? (ie: skip short acting insulin/hold antihyperglycemic): Other items discussed: Mild sedation--yes and snapboard updated, meds, biopsy process, directions, result timeframe Contact number provided and encouraged to call with questions: Yes * Telephone Encounter - Melissa Wright RN - 10/13/2023 8:22 AM CDT PRE-PROCEDURE SCREENING Risk Level of Procedure: High Procedure: US Guided Liver Lesion Biopsy Planned Level of Sedation: Minimal Microbiology Orders in (if applicable) : ALLERGIES: No Known Allergies Infection Status: N/A Does the patient have any of the following medical conditions? Sedation: Previous problems with anesthesia or sedation? No Cardiovascular/Respiratory: h/o HTN Most recent blood pressure (include date): 131/78 as of 10/01/2023 Lung: h/o lung cancer, h/o LEONOR, h/o Asthma Renal/Liver/GI: h/o LEIDA, h/o GERD Bleeding/Clotting: None Most recent coag results: 10/01/23: DPW=031, PT/INR=10.6/0.98, PTT=33 Date of redraw (if applicable): Medications: * * * For blood thinners/antiplatelet agents, REVIEW MED REC AND LIST THEM APPROPRIATE * * * No thinners including ASA * Telephone Encounter - Annelise Hanks, RT - 10/05/2023 8:20 AM CDT Message sent to Imelda about US liver biopsy. Patient is scheduled for 10/15 at 09:15am. Not on blood thinners, labs from 09/[address] PRE-BIOPSY INSTRUCTIONS [facility] ~Please provide to patient at time of scheduling~ Patient will need to arrive 1.5 hours prior to appointment time. Report to the [facility] (#1 [facility]). Park in the [facility], walk over in the walkway and report to Outpatient Admitting &Registration (right side of the lobby). Patient will need to have 'nothing by mouth' (NPO) 6 hours prior to procedure time. MEDICATIONS Pt may take medications as prescribed with the exception of: ANTICOAGULANTS (Blood thinner medications-includes aspirin 325mg): REFERRING OFFICE is responsible for contacting prescriber and ensuring that recommended hold is appropriate. Nurse Coordinators for Biopsy section will forward an ANTICOAGULANT CLEARANCE form to referring office for completion. Referring office to return completed form to Radiology Fax to [phone] (Attn: Agusto). ANTIHYPERGLYCEMICS (Blood sugar medications): 1) Pt should contact prescriber of the diabetic medication(s) to ask how they should be taken whilept is NPO. Pt will have no food or water for about 10 hours. 2) Schedule should also include when/how antihyperglycemic medication is to be restarted after biopsy. Pt should: Have had a CBC, INR and PTT (PTT is ONLY if patient is on Heparin) completed within the 30 days prior to the procedure date, and results either in [facility] or faxed to [phone] Attn: and June If pt has to hold an anticoagulant, please have them get INR and PTT (PTT is ONLY if patient is on Heparin) drawn after they have held the medication (otherwise we may get false highs). Pack a small overnight bag (in case observation/admission is needed). Patients should have a responsible individual identified as the person who will serve as the patients director physical therapy at the time of discharge. If a responsible individual is not identified prior to the start of the procedure, the procedure will be cancelled unless alternative arrangements can be made. Expect to be here for at least 4 hours from time of arrival to end of recovery period. Rev. 10.27.23 * Telephone Encounter - Antwan Perry MD - 10/02/2023 8:25 AM CDT Images from the original note were not included. Abdominal Biopsy Planning Note Planned target / indication: Liver lesion, suspected metastasis Requested time frame for biopsy: No time frame specified. Week of 10/11 Planned sampling method: Core Service to perform: Deep abdominal biopsy service Anticipated imaging modality for guidance: US -- please ensure contrast is available for CEUS Anticipated monitored recovery (final disposition determined at biopsy completion): Routine outpatient: (1- 2 hours) prior to discharge. Special instructions: None Fernandez image(s), if relevant: Confirmation of scheduling, a dedicated screening review of procedural risk factors and specific pre-procedural instructions will be documented separately. * Telephone Encounter - Annelise Hanks RT - 10/02/2023 7:25 AM CDT Biopsy request- Dr. Del Rio Liver lesion MR from 09/23 History of lung cancer Not on blood thinners Request time frame: Week of 10/11 documented in this encounter Plan of Treatment Not on file documented as of this encounter Visit Diagnoses Not on filedocumented in this encounter Care Teams Vp Public Relations Relationship Specialty Start Date End Date Clara Stanley PA [address] [place] [address] PCP - General Nurse Practitioner 04/05/19 Jasper Canchola MD [address] [place] [address] Surgeon Thoracic Surgery 05/11/19 Alexis Lopez MD [address] [address] Cable Worker Helper Pulmonary Disease 05/11/19 Kip Del Rio MD [address] [place] [address] Medical Oncologist/Ornamental Bronze Worker Hematology and Oncology 05/11/19 Jacob Flynn MD [address] [place] [address] Radiation Oncologist Radiation Oncology 05/25/19 Renetta Ballesteros NP [address] [place] [address] Nurse Practitioner Radiation Oncology 06/11/22 documented as of this encounter
--- OUTSIDE RECORDS SUMMARY | 2024-03-02 03:43 | XMS_ITS | Encounter Summary ---
Author Organization [facility] Address [address] [place] [address] Care Team Providers Care Manager Msw Name Role Phone Clara Stanley Primary Care Provider + Jasper Canchola MD Unavailable Alexis Lopez MD Unavailable [phone] Kip Del Rio MD Unavailable [phone] Jacob Flynn MD Unavailable Renetta Ballesteros NP Unavailable Reason for Visit * Reason Onset Date Comments Medical Question/Miscellaneous 09/03/2022 Encounter Details Date Type Department Care Team (Late st Contact Info) Description 09/03/[address] 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 documented in this encounter Plan of Treatment Not on file documented as of this encounter Visit Diagnoses Not on filedocumented in this encounter Care Teams Manager Msw Relationship Specialty Start Date End Date Clara Stanley PA [address] [place] [address] PCP - General Nurse Practitioner 04/05/19 Jasper Canchola MD [address] [place] [address] Surgeon Thoracic Surgery 05/11/19 Alexis Lopez MD [address] [address] Site Damage Prevention Technician Pulmonary Disease 05/11/19 Kip Del Rio MD [address] [facility] [address] [place] [address] Medical Oncologist/Aquatic Biologist Hematology and Oncology 05/11/19 Jacob Flynn MD [address] [facility] [address] [place] [address] Radiation Oncologist Radiation Oncology 05/25/19 Renetta Ballesteros NP [address] [facility] [address] [place] [address] Nurse Practitioner Radiation Oncology 06/11/22 documented as of this encounter
--- OUTSIDE RECORDS SUMMARY | 2024-03-02 03:43 | XMS_ITS | Encounter Summary ---
Author Organization [facility] Healthcare Address [address] [place] [address] Care Team Providers Care Generating Plant Superintendent Name Role Phone Clara Stanley Primary Care Provider + Jasper Canchola MD Unavailable Alexis Lopez MD Unavailable Kip Del Rio MD Unavailable Jacob Flynn MD Unavailable Encounter Details Date Type Department Care Team (Late st Contact Info) Description 12/10/2021 1:00 PM CDT Office Visit [facility] Radiation Oncology [address] [facility] [place] [address] Julia Mckenna, TJ [address] [facility] [address] [place] [address] Radiotherapy follow-up examination (Primary Dx); Malignant neoplasm of lower lobe of right lung (CMS/HCC) (HCC); Cough Social History Tobacco Use Types Packs/Day [...] on file 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 Please let us know if you have any concerns after this visit. Follow up in radiation oncology with Julia Mckenna NP in 3 months with a Chest/Abdomen/Pelvic CT scan, as arranged. Your information will be in My Chart if you do not receive at the end of this visit. If you need to change your appointment dates/times or if you have not been scheduled in the next several weeks or need to make any changes with your office follow up or testing, please call Amelie Lorenzo MA: [phone]. Please understand radiation oncology will work with your other oncology providers when possible to coordinate your appointments as close together as possible but sometimes this is difficult to accomplish. We know that there are many questions regarding the coronavirus (COVID-19), and the best recommendations in response to it. This is a fluid situation, and one in which recommendations and best practices will likely evolve in the coming days/weeks, if not longer. We recommend the following for all patients: - Stay home when you are sick and avoid contact with those who show signs of illness - Clean and disinfect frequently touched surfaces - Use a tissue to cover your sneeze and cough - Wash your hands often with soap and water, or alcohol-based hand-fur blower - For the most current and up to date information, we would recommend accessing the following link for the Centers for Disease Control (CDC): www.cdc.gov/coronavirus For patients who have completed radiation therapy and are seeing your radiation oncologist for follow-up: - Your physicians will be reviewing whether he/she thinks it is best for you to keep your scheduledappointments, or whether to reschedule. If your physician feels that it is best to reschedule, his/her team will be in contact with you to assist with rescheduling documented in this encounter Ordered Prescriptions Prescription Sig Dispense Quantity Refills Last Filled Start Date End Date benzonatate (TESSALON) 200 mg capsuleIndications :Malignant neoplasm of lower lobe of right lung (HCC),Cough Take 1 capsule (200 mg total) by mouth 3 (three) times a day as needed for cough 90 capsule 1 12/10/2021 2 documented in this encounter Progress Notes * Julia Mckenna NP - 12/10/2021 1:00 PM CDT Radiation Oncologist: Jacob Flynn MD Primary Care Physician: Clara Stanley PA Medical Oncologist: Kip Del Rio MD Surgeon: Jasper Canchola MD Referring Physician: No care steam plant records clerk to display Date of Service: 12/10/2021 RADIATION ONCOLOGY FOLLOW UP NOTE IDENTIFYING DATA: 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 male with a history of metastatic [...] 60 Gy in 15fx on 02/21/2021. He was last seen in radiation oncology on 09/11/2021. Patient is here today for follow up visit and review of restaging images to assess for progression of disease and post radiation toxicity. PAST MEDICAL, SURGICAL, FAMILY, AND SOCIAL HISTORY History Last Reviewed by Julia Mckenna NP on 12/10/2021 at 1:07 PM Sections Reviewed Tobacco, Social Documentation, Medical, Surgical, Family, Socioeconomic ALLERGIES: Allergies as of 12/10/2021 Reviewed by Julia Mckenna NP on 12/10/2021 No Known Allergies MEDICATIONS: Review Info User Date and Time JULIA MCKENNA NP [[id number]] 12/10/2021 12:43 PM Review of Systems Constitutional: Negative. HENT: Negative. Eyes: Negative. Respiratory: Positive for cough, shortness of breath and wheezing. Cardiovascular: Negative. Gastrointestinal: Negative. Genitourinary: Negative. Musculoskeletal: Positive for joint pain. Skin: Negative. Neurological: Negative. Endo/Heme/Allergies: Negative. Psychiatric/Behavioral: Negative. All other systems reviewed and are negative. PHYSICAL EXAMINATION: Ht 190.5 cm (6' 3 ) Wt (!) 164.2 kg (362 lb) BMI 45.25 kg/m?? Pain Score and Location 12/10/21 1306 PainSc: 0-No pain Physical Exam Vitals reviewed. Constitutional: General: He is not in acute distress. Appearance: He is obese. He is not diaphoretic. HENT: Head: Normocephalic and atraumatic. Right Ear: External ear normal. Left Ear: External ear normal. Nose: Nose normal. Mouth/Throat: Mouth: Mucous membranes are moist. Pharynx: Oropharynx is clear. No oropharyngeal exudate. Eyes: General: Right eye: No discharge. Left eye: No discharge. Conjunctiva/sclera: Conjunctivae normal. Pupils: Pupils are equal, round, and reactive to light. Neck: Thyroid: No thyromegaly. Trachea: No tracheal deviation. Cardiovascular: Rate and Rhythm: Normal rate and regular rhythm. Heart sounds: Normal heart sounds. No murmur heard. Pulmonary: Effort: Pulmonary effort is normal. No respiratory distress. Breath sounds: Normal breath sounds. No stridor. No wheezing. Comments: On room air. Abdominal: General: Bowel sounds are normal. There is no distension. Palpations: Abdomen is soft. Musculoskeletal: General: Normal range of motion. Cervical back: Normal range of motion and neck supple. Right lower leg: No edema. Left lower leg: No edema. Lymphadenopathy: Cervical: No cervical adenopathy. Skin: General: Skin is warm and dry. Findings: No erythema. Neurological: General: No focal deficit present. Mental Status: He is alert and oriented to person, place, and time. Mental status is at baseline. Cranial Nerves: No cranial nerve deficit. Gait: Gait is intact. Psychiatric: Mood and Affect: Mood and affect normal. Thought Content: Thought content normal. Cognition and Memory: Memory normal. Judgment: Judgment normal. Karnofsky Score: Normal activity with effort ECOG Score: 1 The Karnofsky performance scale today is 80, Normal activity with effort; some signs or symptoms ofdisease (ECOG equivalent 1). DIAGNOSTIC REPORTS REVIEWED: Imaging: I personally reviewed the imaging and compared to previous images. I subsequently will review with Dr. Jacob Flynn. Chest/Abdomen/Pelvic CT scan with at [facility] performed 12/10/[address] CAP on 09/11/2021 and 06/07/2021 demonstrates edda right paratracheal node is unchanged. No evidence of disease progression. Surgical changes from right lower lobectomy. Small right pleural effusion. Chem/LFT Lab History Some values may be hidden. Unless noted otherwise, only the newest values recorded on each date aredisplayed. Labs-Chem/LFT 06/07/21 09/11/21 12/10/21 CrCl- Actual Body Weight (Cockcroft-Gault) 278.8 287.5 217.9 ASSESSMENT/PLAN: 56 y.o. 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 He did not receive adjuvant chemo or radiation. He had biopsy proven high right paratracheal marcus recurrence and completed radiation therapy to the mediastinum, subcarinal lymph node, 60 Gy in 15fx on 02/21/2021. Today's review of restaging imaging, physical examination and review of systems demonstrates no clinical or radiographic evidence of recurrent disease or progression of disease. I reviewed the new report/images with the patient. Medications ordered at this office visit were. Benzonatate 200 mg PO every 8 hours prn cough. All questions answered at this time. PLAN: Patient will return to the office in 3 months with a restaging Chest/Abdomen/Pelvic CT scan with contrast RAD ONC PAIN PLAN: The patient is not currently having any pain that requires changes in pain management. DISEASE STATUS: Disease Status: Controlled New metachronous cancer?: No evidence of malignancy Julia Mckenna NP- Radiation Oncology I saw the patient independently and will review the images, data, physical exam and plan with Dr. Jacob Flynn. Cosigned by Jacob Flynn MD at 12/11/2021 2:18 PM CDT documented in this encounter Plan of Treatment Not on file documented as of this encounter Visit Diagnoses Diagnosis Radiotherapy follow-up examination- Primary Malignant neoplasm of lower lobe of right lung (HCC) Cough documented in this encounter Care Teams Generating Plant Superintendent Relationship Specialty Start Date End Date Clara Stanley PA [address] [place] [address] PCP - General Nurse Practitioner 04/05/19 Jasper Canchola MD [address] [place] [address] Surgeon Thoracic Surgery 05/11/19 Alexis Lopez MD [address] [facility] [address] [address] Lunch Cook Pulmonary Disease 05/11/19 Kip Del Rio MD [address] [facility] [address] [place] [address] Medical Oncologist/Police Reserves Commander Hematology and Oncology 05/11/19 Jacob Flynn MD [address] [facility] [address] [place] [address] Radiation Oncologist Radiation Oncology 05/25/19 documented as of this encounter
--- OUTSIDE RECORDS SUMMARY | 2024-03-02 03:43 | XMS_ITS | Encounter Summary ---
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 Stable pulmonary nodules with no new pulmonary nodules identified. Stable mediastinal lymph node. ?? 2. No evidence of disease progression or new sites of metastatic disease. Dictated by: Danny Campos MD The radiology attending physician has personally reviewed this study, and had reviewed and/or edited this written report and agrees with it. Electronically signed by: Bronson Gruber M.D. Narrative 03/04/2022 5:37 PM CANDLE WRAPPING 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 EXAMINATION: ??Computed tomography of the chest, abdomen and pelvis with intravenous contrast HISTORY: 56-year-old male with non-small cell lung cancer. TECHNIQUE: ??Transaxial computed tomographic images of the chest, abdomen and pelvis were obtained with intravenous contrast according to the standard protocol after the uneventful administration of 119 mL Opti-Ray 350 intravenous contrast. COMPARISON: 12/10/2021, 09/11/2021 FINDINGS: ?? Chest: Heart is normal in size without pericardial effusion. ??The thoracic aorta and pulmonary arteries are normal. ??There is no supralevator or adnexal lymphadenopathy. ??Stable 1.1 cm right paratracheal lymph node (series 2 image 27) There are stable scattered solid nodules and pulmonary lymph nodes such as a pulmonary nodule in the right upper lobe which measures 4 mm average diameter on series 3 image 75. ??There are no new suspicious pulmonary nodules. There are postoperative changes of a right lobectomy with stable elevation of the right hemidiaphragm. ??Small stable right pleural effusion. Abdomen/Pelvis: The spleen, adrenal glands, pancreas, and gallbladder appear normal. No focal hepatic lesions. The kidneys enhance symmetrically without evidence of hydronephrosis. The bladder appears normal. ??Prostate is present. The small and large bowel are normal in caliber without evidence of obstruction. The abdominal aorta is normal in caliber. ??The superior mesenteric, celiac, renal, and inferior mesenteric arteries are patent. ??The portal, splenic, and superior mesenteric veins are patent. There are no suspicious osseous lesions. Procedure Note Bronson Gruber MD - 03/04/2022 EXAMINATION: Computed tomography of the chest, abdomen and pelvis with intravenous contrast HISTORY: 56-year-old male with non-small cell lung cancer. TECHNIQUE: Transaxial computed tomographic images of the chest, abdomen and pelvis were obtained with intravenous contrast according to the standard protocol after the uneventful administration of 119 mL Opti-Ray 350 intravenous contrast. COMPARISON: 12/10/2021, 09/11/2021 FINDINGS: Chest: Heart is normal in size without pericardial effusion. The thoracic aorta and pulmonary arteries are normal. There is no supralevator or adnexal lymphadenopathy. Stable 1.1 cm right paratracheal lymph node (series 2 image 27) There are stable scattered solid nodules and pulmonary lymph nodes such as a pulmonary nodule in the right upper lobe which measures 4 mm average diameter on series 3 image 75. There are no new suspicious pulmonary nodules. There are postoperative changes of a right lobectomy with stable elevation of the right hemidiaphragm. Small stable right pleural effusion. Abdomen/Pelvis: The spleen, adrenal glands, pancreas, and gallbladder appear normal. No focal hepatic lesions. The kidneys enhance symmetrically without evidence of hydronephrosis. The bladder appears normal. Prostate is present. The small and large bowel are normal in caliber without evidence of obstruction. The abdominal aorta is normal in caliber. The superior mesenteric, celiac, renal, and inferior mesenteric arteries are patent. The portal, splenic, and superior mesenteric veins are patent. There are no suspicious osseous lesions. IMPRESSION: 1. Stable pulmonary nodules with no new pulmonary nodules identified. Stable mediastinal lymph node. 2. No evidence of disease progression or new sites of metastatic disease. Dictated by: Danny Campos MD The radiology attending physician has personally reviewed this study, and had reviewed and/or edited this written report and agrees with it. Electronically signed by: Bronson Gruber M.D. 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 documented in this encounter Care Teams Document Coordinator Relationship Specialty Start Date End Date Clara Stanley PA [address] [place] [id number] PCP - General Nurse Practitioner 04/05/19 Jasper Canchola MD [address] [place] [address] Surgeon Thoracic Surgery 05/11/19 Alexis Lopez MD [address] [facility] [address] [place] [address] [place] [address] Fiberglass Auto Body Repairer Pulmonary Disease 05/11/19 Kip Del Rio MD [address] [facility] [address] [place] [address] Medical Oncologist/Rug Shampooer Hematology and Oncology 05/11/19 Jacob Flynn MD [address] [facility] [address] [place], [place] [id number] Radiation Oncologist Radiation Oncology 05/25/19 documented as of this encounter
--- OUTSIDE RECORDS SUMMARY | 2024-03-02 03:43 | XMS_ITS | Encounter Summary ---
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) Procedures CT Chest Abdomen Pelvis W Contrast Jacob Flynn MD [address] [facility] [address] [place] [address] Phone: tel: fax: [address] [phone] Referral ID Status Reason Start Date Expiration Date Visits Re quested Visits Authorized [id number] Closed 02/24/2022 03/26/2023 1 1 ICAL OPERATIONS AND TRAINING Reason for Visit * MRI/CAT/PET Scan (Routine) - Closed Specialty Diagnoses / Procedures Referred By Contac t Referred To Contact Radiology Diagnoses Radiotherapy follow-up examination 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 [address] [facility] [place] [address] Referral ID Status Reason Start Date Expiration Date Visits Re quested Visits Authorized [id number] Closed 02/24/2022 03/26/2023 1 1 Encounter Details Date Type Department Care Team (Latest Contact Info) Description 03/04/2022 8:52 AM CHEMICAL OPERATIONS AND TRAINING - 03/04/2022 11:59 PM CHEMICAL OPERATIONS AND TRAINING Hospital Encounter [facility] [address] [place] [address] Jacob Flynn MD [address] [facility] [address] [place] [address] Radiotherapy follow-up examination; Malignant neoplasm of lower lobe of right [...] on file Legal Sex Male 1:17 AM CHEMICAL OPERATIONS AND TRAINING Gender Identity Not on file Sexual Orientation [...] tablet (1,000 mg total) by mouth daily cholecalciferol (VITAMIN D-3) 50,000 unit capsule Take 1 capsule (50,000 Units total) by mouth fexofenadine (CHERELLE) 180 mg tabletIndications: Cough, persistent Take 1 tablet (180 mg total) by mouth daily 30 tablet 11 02/26/2022 fluticasone propionate (FLONASE) 50 mcg/actuation nasal sprayIndications:C ough, persistent Administer 2 sprays into each nostril daily 16 g 6 02/26/2022 multivitamin capsule Take 1 capsule by mouth daily nitroglycerin (NITROSTAT) 0.[address] 1 tablet (0.4 mg total) under the tongue every 5 (five) minutes as needed 02/12/2022 albuterol HFA (PROVENTIL HFA,VENTOLIN HFA,PROAIR HFA) 90 mcg/actuation inhalerIndications :Mild intermittent asthma without complication Inhale 2 puffs every 6 (six) hours as needed for wheezing Fill per patient's formulary 1 each 02/26/2022 4 budesonide-formote roL (Symbicort) 160-4.5 mcg/actuation inhaler Inhale 2 puffs 2 (two) times a day Rinse mouth with water after use. Do not swallow. 10.2 g 02/10/2022 3 fluticasone-umecli din-vilanter (Trelegy Ellipta) 100-62.5-25 mcg inhaler Inhale 1 puff daily 3 montelukast (SINGULAIR) 10 mg tabletIndications: Mild intermittent asthma without complication Take 1 tablet (10 mg total) by mouth nightly 30 tablet 02/26/[address] (PROTONIX) 40 mg EC tabletIndications: Cough, persistent Take 1 tablet (40 mg total) by mouth daily 30 tablet 02/26/2022 4 pravastatin (PRAVACHOL) 20 mg tabletIndications: hyperlipidemia Take 1 tablet (20 mg total) by mouth every morning 04/10/2019 4 documented as of this encounter Discharge Disposition Disposition Code Departure Means Destination Discharge to home or self care documented in this encounter Plan of Treatment Not on file documented as of this encounter Procedures Procedure Name Priority Date/Time Associated Diagnosis Comments CT CHEST ABDOMEN PELVIS W CONTRAST Schedule Routine, Read Routine (OP Routine) 03/04/2022 9:17 AM CHEMICAL OPERATIONS AND TRAINING Radiotherapy follow-up examination Malignant neoplasm of lower lobe of right lung (CMS/HCC) (HCC) 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 Stable pulmonary nodules with no new pulmonary nodules identified. Stable mediastinal lymph node. ?? 2. No evidence of disease progression or new sites of metastatic disease. Dictated by: Danny Campos MD The radiology attending physician has personally reviewed this study, and had reviewed and/or edited this written report and agrees with it. Electronically signed by: Bronson Gruber M.D. Narrative 03/04/2022 5:37 PM CHEMICAL OPERATIONS AND TRAINING EXAMINATION: ??Computed tomography of the chest, abdomen [...] MD IMG CT PROCEDURES Fin al Result * POCT creatinine (03/04/2022 9:05 AM CHEMICAL OPERATIONS AND TRAINING) Creatinine POC 0.8 0.7 - 1.3 mg/dL [facility] Blood 03/04/2022 9:05 AM CHEMICAL OPERATIONS AND TRAINING 03/04/2022 9:05 AM CHEMICAL OPERATIONS AND TRAINING Jacob Flynn MD LAB POCT ORDERABLES - DEVICE Final Result [facility] [place] [address] documented in this encounter Visit Diagnoses Diagnosis Radiotherapy follow-up examination Malignant neoplasm of lower [...] intravenous, Once in imaging, contrast, Starting on 03/04/22 at 0909, For 1 dose Contrast Given 03/04/2022 9:18 AM CHEMICAL OPERATIONS AND TRAINING 119 mL documented in this encounter Orders Medications Ordered That Vikram ht Not Have Been Administered Count Last Ordered Date First Ordered Date ioversoL (OPTIRAY 350) syringe 125 mL 1 documented in this encounter Care Teams Product Safety Coordinator Relationship Specialty Start Date End Date Clara Stanley PA [address] [place] [address] PCP - General Nurse Practitioner 04/05/19 Jasper Canchola MD [address] [place] [address] Surgeon Thoracic Surgery 05/11/19 Alexis Lopez MD [address] [address] Noc Engineer Pulmonary Disease 05/11/19 Kip Del Rio MD [address] [facility] [address] [place] [address] Medical Oncologist/Supply Assistant Hematology and Oncology 05/11/19 Jacob Flynn MD [address] [facility] [address] [place] [address] Radiation Oncologist Radiation Oncology 05/25/19 documented as of this encounter
--- OUTSIDE RECORDS SUMMARY | 2024-03-02 03:43 | XMS_ITS | Encounter Summary ---
Author Organization [facility] Address [address] [place] [address] Care Team Providers Care Tunnel Elastic Operator Lockstitch Name Role Phone Clara Stanley Primary Care Provider + Jasper Canchola MD Unavailable Alexis Lopez MD Unavailable Kip Del Rio MD Unavailable Jacob Flynn MD Unavailable Renetta Ballesteros NP Unavailable Reason for Visit * Reason Comments Follow-up Encounter Details Date Type Department Care Team (Late st Contact Info) Description 09/19/2022 8:30 AM CDT Office Visit [facility] Pulmonology [address] [place] [phone] [place] [address] [place] [address] [address] [place] [address] Mild intermittent asthma without complication (Primary Dx); Lung nodule; LEONOR (obstructive sleep apnea); Cough, persistent Social History Tobacco Use Types [...] on file Legal Sex Male 1:17 AM SKI GUIDE Gender Identity Not on file Sexual Orientation Straight 09/22/2019 8: 21 PM CDT 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 on file Not on file documented as of this encounter Last Filed Vital Signs Vital Sign Reading Time Taken Comments Blood Pressure 149/86 09/19/2022 8:30 AM CDT Pulse 80 09/19/2022 8:30 AM CDT Temperature - - Respiratory Rate 18 09/19/2022 8:30 AM CDT Oxygen Saturation 93% 09/19/2022 8:30 AM CDT Inhaled Oxygen Concentration - - Weight 158.3 kg (349 lb) 09/19/2022 8:30 AM CDT Height 190.5 cm (6' 3 ) 09/19/2022 8:30 AM CDT Body Mass Index 43.62 09/19/2022 8:30 AM CDT documented in this encounter Ordered Prescriptions Prescription Sig Dispense Quantity Refills Last Filled Start Date End Date albuterol 2.5 mg /3 mL (0.083 %) nebulizer solutionIndicatio ns:Mild intermittent asthma without complication Take 3 mL (2.5 mg total) by nebulization every 6 (six) hours as needed for wheezing for up to 480 doses 360 mL 3 09/19/2022 4 roflumilast (DALIRESP) 500 mcg tabletIndications :Prevention of Bronchospasm with Chronic Bronchitis Take 1 tablet (500 mcg total) by mouth daily 30 tablet 3 09/19/2022 4 documented in this encounter Progress Notes * Alexis Lopez MD - 09/19/2022 8:30 AM CDT Images from the original note were not included. Progress Note Patient: Kwaku Kulkarni ( - 1965) is a 57 y.o. male. 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 The patient was treated with antibiotics and steroids several weeks ago when the cough was productive and is now dry. He did have some relief after starting Trelegy before the upper respiratory tract infection. He continues to use Mucinex b.i.d. Singulair 10 mg daily, Cherelle and the store operations manager's started him on Realtris. He did see the store operations manager and he had positive skin testing and he is being considered for desensitization therapy versusDupixent injections. Cough after eating. He states that the albuterol nebulizer treatment work wellfor him when he was at an urgent care visit recently. Past Medical History: Past Medical History: Diagnosis Date LEIDA (acute kidney injury) (CMS/HCC) (HCC) Asthma Cancer (CMS/HCC) (HCC) Carcinoid tumor of lung right lung Chronic headaches 03/2019 IIH (idiopathic intracranial hypertension) Hypertension Hyponatremia IIH (idiopathic intracranial hypertension) LEONOR (obstructive sleep apnea) 12/02/2019 Surgical History: Past Surgical History: Procedure Laterality Date ABDOMINAL SURGERY APPENDECTOMY BRONCHOSCOPY 05/30/2019 COLONOSCOPY 2019 COLONOSCOPY ESOPHAGOGASTRODUODENOSCOPY 04/2019 LUMBAR PUNCTURE 04/03/2019 MEDIASTINOSCOPY 05/19/2019 Cervical Mediastinoscopy THORACOTOMY 05/26/2019 THORACOTOMY LOBECTOMY / lymph node disection (Right) TONSILLECTOMY Current Medications: Current Outpatient Medications Medication Sig Dispense Refill albuterol HFA (PROVENTIL HFA,VENTOLIN HFA,PROAIR HFA) 90 [...] total) by mouth fexofenadine (CHERELLE) 180 mg tablet Take 1 tablet (180 mg total) by mouth daily 30 tablet 11 fluticasone propionate (FLONASE) 50 mcg/actuation nasal spray Administer 2 sprays into each nostrildaily 16 g 6 rdzoixpuisk-qimwstnmh-zxjjhbji (Trelegy Ellipta) 100-62.5-25 mcg inhaler Inhale 1 puff daily 60 each 11 montelukast (SINGULAIR) 10 mg tablet Take 1 tablet (10 mg total) by mouth nightly 30 tablet 11 multivitamin capsule Take 1 capsule by mouth daily nitroglycerin (NITROSTAT) 0.[address] 1 tablet (0.4 mg total) under the tongue every 5 (five) minutes as needed olopatadine-mometasone (Ryaltris) 665-25 mcg/spray spray,non-aerosol Administer into affected nostril(s) 2 (two) times a day pantoprazole DR (PROTONIX) 40 mg EC tablet Take 1 tablet (40 mg total) by mouth daily 30 tablet 11 pravastatin (PRAVACHOL) 20 mg tablet Take 1 tablet (20 mg total) by mouth every morning albuterol 2.5 mg /3 mL (0.083 %) nebulizer solution Take 3 mL (2.5 mg total) by nebulization every 6 (six) hours as needed for wheezing for up to 480 doses 360 mL 3 benzonatate (TESSALON) 200 mg capsule TAKE 1 CAPSULE BY MOUTH THREE TIMES DAILY NEEDED FOR COUGH(Patient not taking: Reported on 06/11/2022) guaiFENesin ER (MUCINEX) 600 mg 12 hr tablet Take 2 tablets (1,200 mg total) by mouth 2 (two) timesa day 60 tablet 1 predniSONE (DELTASONE) 10 mg tablet Take 4 tabs (40mg) daily for 2 days, then 3 tabs (30mg) daily for 2 days, 2 tabs (20mg) daily for 2 days, 1 tab (10 mg) daily for 2 days. 20 tablet 0 roflumilast (DALIRESP) 500 mcg tablet Take 1 tablet (500 mcg total) by mouth daily 30 tablet 3 No current facility-administered medications for this visit. Allergies: No Known Allergies Family History: Family History Problem Relation Age of Onset Cancer Mother Heart disease Father Cancer Father Other (lung cancer) Sister Anesthesia problems Neg Hx Social History: Social History Tobacco Use Smoking status: Never Smokeless tobacco: Never Substance and Sexual Activity Drug use: Never Sexual activity: None Alcohol Use: Unknown (12/24/2020) AUDIT-C Frequency of Alcohol Consumption: 2-3 times a week Average Number of Drinks: 1 or 2 Frequency of Binge Drinking: Not on file Review of Systems: Review of Systems Constitutional: Negative for appetite change, fever and unexpected weight change. HENT: Positive for postnasal drip. Negative for rhinorrhea, sinus pressure, sinus pain, sore throatand tinnitus. Respiratory: Positive for cough, shortness of breath and wheezing. Cardiovascular: Negative for chest pain, palpitations and leg swelling. Gastrointestinal: Negative for abdominal pain, diarrhea and nausea. Genitourinary: Negative for hematuria. Musculoskeletal: Negative for arthralgias, back pain and myalgias. Skin: Negative for color change. Allergic/Immunologic: Positive for environmental allergies. Negative for food allergies. Neurological: Negative for dizziness and light-headedness. Physical Exam: Vitals: 09/19/22 0830 BP: 149/86 BP Location: Left arm Patient Position: Sitting Pulse: 80 Resp: 18 SpO2: 93% Weight: (!) 158.3 kg (349 lb) Height: 190.5 cm (6' 3 ) Physical Exam Constitutional: Appearance: He is well-developed. HENT: Head: Normocephalic and atraumatic. Eyes: Pupils: Pupils are equal, round, and reactive to light. Cardiovascular: Rate and Rhythm: Normal rate and regular rhythm. Pulmonary: Effort: Pulmonary effort is normal. Breath sounds: Rhonchi present. No wheezing or rales. Abdominal: General: Bowel sounds are normal. Palpations: Abdomen is soft. Musculoskeletal: General: Normal range of motion. Cervical back: Normal range of motion and neck supple. Skin: General: Skin is warm and dry. Neurological: Mental Status: He is alert and oriented to person, place, and time. Data Reviewed Images: CT Chest Abdomen Pelvis W Contrast Result Date: 09/18/2022 Changes of right lower lobectomy, and right mediastinal post radiation changes. Tiny stable pulmonary nodules. No change compared to the prior exam. Electronically signed by: Seb Alfonso M.D. Recent Labs Lab Units 09/18/22 1033 CREATININE POC mg/dL 0.7 Assessment and Plan: Diagnoses and all orders for this visit: Mild intermittent asthma without complication (Primary) Assessment & Plan: The patient has a cough variant of asthma. I will order albuterol for the nebulizer as well as a home nebulizer for him. He will continue with Trelegy 1 puff daily. He will continue with Singulair 10mg daily, Cherelle and Realtris. I did tell him to stop the Mucinex and I will give him a trial of Daliresp to see if this will help him clear his secretions. Orders: - albuterol 2.5 mg /3 mL (0.083 %) nebulizer solution; Take 3 mL (2.5 mg total) by nebulization every 6 (six) hours as needed for wheezing for up to 480 doses Lung nodule Assessment & Plan: He is being followed at the [facility] with serial chest CTs and he did have a chest CT yesterday and the report is listed above. LEONOR (obstructive sleep apnea) Assessment & Plan: He is not using the auto titrating CPAP unit with a range of 5-20 cm water pressure and is practicing positional therapy. His DME supplier is [employer]. Cough, persistent Assessment & Plan: The patient has had a history of cough variant of asthma which responded to therapy but he had a recent upper respiratory tract infection again in mid August which required antibiotics and steroids. Dayna has a dry cough now. He did see the store operations manager and allergy shots versus Dupixent is being considered. He will continue on Protonix 40 mg daily. I will consider bronchoscopy if the allergy shots/Dupixent do not control the cough. Orders: - roflumilast (DALIRESP) 500 mcg tablet; Take 1 tablet (500 mcg total) by mouth daily Rendering Provider & Department: Alexis Lopez MD documented in this encounter Miscellaneous Notes * Assessment & Plan Note - Alexis Lopez MD - 09/19/2022 9:08 AM CDT Associated Problem(s): LEONOR (obstructive sleep apnea) He is not using the auto titrating CPAP unit with a range of 5-20 cm water pressure and is practicing positional therapy. His DME supplier is [employer]. * Assessment & Plan Note - Alexis Lopez MD - 09/19/2022 9:08 AM CDT Associated Problem(s): Mild intermittent asthma without complication The patient has a cough variant of asthma. I will order albuterol for the nebulizer as well as a home nebulizer for him. He will continue with Trelegy 1 puff daily. He will continue with Singulair 10mg daily, Cherelle and Realtris. I did tell him to stop the Mucinex and I will give him a trial of Daliresp to see if this will help him clear his secretions. * Assessment & Plan Note - Alexis Lopez MD - 09/19/2022 9:07 AM CDT Associated Problem(s): Cough, persistent The patient has had a history of cough variant of asthma which responded to therapy but he had a recent upper respiratory tract infection again in mid August which required antibiotics and steroids. Dayna has a dry cough now. He did see the store operations manager and allergy shots versus Dupixent is being considered. He will continue on Protonix 40 mg daily. I will consider bronchoscopy if the allergy shots/Dupixent do not control the cough. * Assessment & Plan Note - Alexis Lopez MD - 09/19/2022 9:06 AM CDT Associated Problem(s): Lung nodule (Deleted) He is being followed at the [facility] with serial chest CTs and he did have a chest CT yesterday and the report is listed above. documented in this encounter Plan of Treatment Not on file documented as of this encounter Visit Diagnoses Diagnosis Mild intermittent asthma without complication- Primary Lung nodule Other diseases of lung, not elsewhere classified LEONOR (obstructive sleep apnea) Obstructive sleep apnea (adult) (pediatric) Cough, persistent documented in this encounter Care Teams Tunnel Elastic Operator Lockstitch Relationship Specialty Start Date End Date Clara Stanley PA [address] [place] [id number] PCP - General Nurse Practitioner 04/05/19 Jasper Canchola MD [address] [place] [address] Surgeon Thoracic Surgery 05/11/19 Alexis Lopez MD [address] [address] Type Proof Reproducer Pulmonary Disease 05/11/19 Kip Del Rio MD [address] [place] [address] Medical Oncologist/[employer] Ticketer Hematology and Oncology 05/11/19 Jacob Flynn MD [address] [place] [address] Radiation Oncologist Radiation Oncology 05/25/19 Renetta Ballesteros NP [address] [place] [address] Nurse Practitioner Radiation Oncology 06/11/22 documented as of this encounter
--- OUTSIDE RECORDS SUMMARY | 2024-03-02 03:43 | XMS_ITS | Encounter Summary ---
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 [address] [place] [address] Phone: tel: fax: [address] [phone] Referral ID Status Reason Start Date Expiration Date Visits Re quested Visits Authorized [id number] Closed 06/11/2022 07/11/2023 1 1 Reason for Visit * Reason Comments Follow-up Prior CT Encounter Details Date Type Department Care Team (Late st Contact Info) Description 06/11/2022 11:00 AM CDT Office Visit [facility] Advanced Medicine Radiation Oncology [address] [facility] [place] [address] Renetta Ballesteros NP [address] 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 Gender Identity Not on file Sexual Orientation [...] - Inhaled Oxygen Concentration - - Weight 164.1 kg (361 lb 11.2 oz) 2022 11:23 AM CDT Height 190.5 cm (6' 3 ) 06/11/2022 11:2 3 AM CDT Body Mass Index 45.21 06/11/2022 11:23 AM CDT documented in this encounter Progress Notes * Renetta Ballesteros NP - 06/11/2022 11:00 AM CDT Radiation Oncologist: Jacob Flynn MD Primary Care Physician: Clara Stanley PA Medical Oncologist: Kip Del Rio MD Surgeon: Jasper Canchola MD Referring Physician: No care cps team lead to display Date of Service: 06/11/2022 RADIATION ONCOLOGY FOLLOW UP NOTE IDENTIFYING DATA: Cancer 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 Last seen in Radiation Oncology on 03/04/22. Mr Kulkarni is here unaccompanied today. He reports continued SOB. He is seeing a carpenter repairer who diagnosed him with asthma. He reports chronic cough that is worse upon exertion. He is on Symbicort and trelegy. He is seeing an restaurant greeter soon. He is also trying to lose weight. Patient is here today for follow up visit and review of restaging images to assess for progression of disease and post radiation toxicity. PAST MEDICAL, SURGICAL, FAMILY, AND SOCIAL HISTORY History Last Reviewed by Tita Encarnacion NP on 06/06/2022 at 9:16 AM Sections Reviewed Medical, Surgical, Family, Tobacco, Socioeconomic ALLERGIES: Allergies as of 06/11/2022 Reviewed by Eneida Muniz, on 06/11/2022 No Known Allergies MEDICATIONS: Review Info User Date and Time TITA ENCARNACION NP [[id number]] 06/06/2022 9:16 AM ROS A complete review of 10 systems was completed and negative unless noted above in history of presentillness or intake questionnaire. PHYSICAL EXAMINATION: Ht 190.5 cm (6' 3 ) Wt (!) 164.1 kg (361 lb 11.2 oz) BMI 45.21 kg/m?? Pain Score and Location 06/11/22 1123 PainSc: 0-No pain Physical Exam Constitutional: Appearance: Normal appearance. Pulmonary: Effort: Pulmonary effort is normal. Musculoskeletal: General: Normal range of motion. Neurological: Mental Status: He is oriented to person, place, and time. Psychiatric: Mood and Affect: Mood normal. Behavior: Behavior normal. The Karnofsky performance scale today is 80, Normal activity with effort; some signs or symptoms ofdisease (ECOG equivalent 1). DIAGNOSTIC REPORTS REVIEWED: Imaging: I personally reviewed the CT imaging and compared to previous images. I subsequently reviewed with Dr. Jacob Flynn. Chest/Abdomen/Pelvic CT scan performed 06/11/22 demonstrates IMPRESSION: 1. Small pulmonary nodules appear unchanged. No new nodules. 2. Similar appearance of mediastinal and right hilar lymph nodes. 3. 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 Chem/LFT Lab History Some values may be hidden. Unless noted otherwise, only the newest values recorded on each date aredisplayed. Labs-Chem/LFT 09/11/21 12/10/21 03/04/22 06/11/22 CrCl- Actual Body Weight (Cockcroft-Gault) 287.5 217.9 246.9 242.1 ASSESSMENT/PLAN: male with a history of metastatic low [...] reviewed the new report/images with the patient. No medication changes made at this office visit.. All questions answered at this time. PLAN: Patient will return to the office in 3 months with a restaging Chest/Abdomen/Pelvic CT scan. RAD ONC PAIN PLAN: The patient is not currently having any pain that requires changes in pain management. Renetta Ballesteros NP- Radiation Oncology I saw the patient independently and reviewed the images, data, physical exam and plan with Dr. Jacob Flynn. Cosigned by Jacob Flynn MD at 06/15/2022 10:20 PM CDT documented in this encounter Plan of Treatment Not on file documented as of this encounter Results * CT Chest Abdomen Pelvis W Contrast (09/18/2022 10:48 AM CDT) Anatomical Region Laterality Modality Body N/A Computed Tomogra phy 09/18/2022 11:0 3 AM CDT Impressions 09/18/2022 11:03 AM CDT Changes of right lower lobectomy, and right mediastinal post radiation changes. Tiny stable pulmonary nodules. No change compared to the prior exam. Electronically signed by: Seb Alfonso M.D. Narrative 09/18/2022 11:03 AM CDT EXAMINATION: Computed tomography of the chest abdomen and pelvis with intravenous contrast material. HISTORY: Right lower lobe cancer. TECHNIQUE: CT scan of the chest abdomen and pelvis was performed after the uneventful administration of 119 mL of Optiray 350 following standard technique. FINDINGS:. A prior CT scan dated 06/11/2021 is used as comparison. CHEST:. The patient is status post right lower lobectomy. Post radiation changes are noted in the right hilar region, with some residual thickening in the right paramediastinal area, which looks similar to the prior examination. Volume loss of the right lung are seen. Unchanged peripheral subpleural nodule in the right middle lobe table position -180.6. ??Stable 3.3 mm nodule right middle lobe table position -212.6. Stable 4 mm nodule right middle lobe table position -190.6. ??Scar changes are seen in the inferior aspect of the right lung. Right basilar pleural thickening seen. Healed fractures noted on the right posterolateral costal wall from the prior right thoracotomy. The left lung is well-expanded, demonstrating an unchanged 3.4 mm nodule in the left upper lobe table position -182.6. 3.7 mm nodule in the left lower lobe, stable also. Mediastinal windows demonstrate matted residual lymph nodes in the right perihilar region, which have been previously radiated. ??Noted again is a right paratracheal lymph node on table position -284.6, which measures 1 cm, stable. No central pulmonary embolism. ??Small amount of pleural fluid thickening seen at the right lung base, partly calcified. No central pulmonary embolism. No pericardial effusion. ABDOMEN:. The liver is normal. Normal spleen. Normal adrenal glands and kidneys bilaterally. There is no retroperitoneal lymphadenopathy. Gallbladder is present and is normal. Normal stomach. ??Normal small bowel. Diverticulosis of the colon. Pelvis:. Normal pelvis with no adenopathy. Bones: Degenerative changes of the spine. ??No bone metastasis. Procedure Note Seb Alfonso MD - 09/18/2022 EXAMINATION: Computed tomography of the chest abdomen and pelvis with intravenous contrast material. HISTORY: Right lower lobe cancer. TECHNIQUE: CT scan of the chest abdomen and pelvis was performed after the uneventful administration of 119 mL of Optiray 350 following standard technique. FINDINGS:. A prior CT scan dated 06/11/2021 is used as comparison. CHEST:. The patient is status post right lower lobectomy. Post radiation changes are noted in the right hilar region, with some residual thickening in the right paramediastinal area, which looks similar to the prior examination. Volume loss of the right lung are seen. Unchanged peripheral subpleural nodule in the right middle lobe table position -180.6. Stable 3.3 mm nodule right middle lobe table position -212.6. Stable 4 mm nodule right middle lobe table position -190.6. Scar changes are seen in the inferior aspect of the right lung. Right basilar pleural thickening seen. Healed fractures noted on the right posterolateral costal wall from the prior right thoracotomy. The left lung is well-expanded, demonstrating an unchanged 3.4 mm nodule in the left upper lobe table position -182.6. 3.7 mm nodule in the left lower lobe, stable also. Mediastinal windows demonstrate matted residual lymph nodes in the right perihilar region, which have been previously radiated. Noted again is a right paratracheal lymph node on table position -284.6, which measures 1 cm, stable. No central pulmonary embolism. Small amount of pleural fluid thickening seen at the right lung base, partly calcified. No central pulmonary embolism. No pericardial effusion. ABDOMEN:. The liver is normal. Normal spleen. Normal adrenal glands and kidneys bilaterally. There is no retroperitoneal lymphadenopathy. Gallbladder is present and is normal. Normal stomach. Normal small bowel. Diverticulosis of the colon. Pelvis:. Normal pelvis with no adenopathy. Bones: Degenerative changes of the spine. No bone metastasis. IMPRESSION: Changes of right lower lobectomy, and right mediastinal post radiation changes. Tiny stable pulmonary nodules. No change compared to the prior exam. Electronically signed by: Seb Alfonso M.D. 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 predniSONE (DELTASONE) 50 mg tablet TAKE 1 TABLET BY MOUTH DAILY FOR 5 DAYS 05/11/2022 08/29/2022 benzonatate (TESSALON) 200 mg capsule TAKE 1 CAPSULE BY MOUTH THREE TIMES DAILY NEEDED FOR COUGH 05/11/2022 09/21/2022 added in this encounter Care Teams Commissions Analyst Relationship Specialty Start Date End Date Clara Stanley PA [address] [place] [id number] PCP - General Nurse Practitioner 04/05/19 Jasper Canchola MD [facility] [place] [address] Surgeon Thoracic Surgery 05/11/19 Alexis Lopez MD [address] [facility] [address] [address] [employer] Director Pulmonary Disease 05/11/19 Kip Del Rio MD [address] [facility] [address] [place] [address] Medical Oncologist/County Auditor Hematology and Oncology 05/11/19 Jacob Flynn MD [address] [facility] [address] [place] [address] Radiation Oncologist Radiation Oncology 05/25/19 Renetta Ballesteros NP [address] [facility] [address] [place] [address] Nurse Practitioner Radiation Oncology 06/11/22 documented as of this encounter
--- OUTSIDE RECORDS SUMMARY | 2024-03-02 03:43 | XMS_ITS | Encounter Summary ---
Author Organization [facility] Address [address] [facility] [address] [place] [address] Care Team Providers Care Groundskeeping Yardman Name Role Phone Clara Stanley Primary Care Provider + Jasper Canchola MD Unavailable Alexis Lopez MD Unavailable [phone] Kip Del Rio MD Unavailable Jacob Flynn MD Unavailable Reason for Visit * Reason Comments Follow-up Encounter Details Date Type Department Care Team (Late st Contact Info) Description 06/06/2022 9:15 AM CDT Office Visit [facility] Pulmonology [address] [facility] [address] [place] [id number] Trinity Encarnacion, CODING 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 [address] [facility] [address] [place] [address] Cough, persistent (Primary Dx); LEONOR (obstructive sleep apnea); Mild intermittent asthma without complication; Right lower lobe pulmonary nodule Social History Tobacco Use Types Packs/Day Years [...] on file 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 Gender Identity Not on file Sexual Orientation Straight 09/22/2019 8: 21 PM CDT 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 on file Not on file documented as of this encounter Last Filed Vital Signs Vital Sign Reading Time Taken Comments Blood Pressure 145/87 06/06/2022 9:13 AM CDT Pulse 80 06/06/2022 9:13 AM CDT Temperature 36.8 ??C (98.3 ??F) 06/06/2022 9:13 AM CD T Respiratory Rate 18 06/06/2022 9:13 AM CDT Oxygen Saturation 94% 06/06/2022 9:13 AM CDT Inhaled Oxygen Concentration - - Weight 165.6 kg (365 lb) 06/06/2022 9:13 AM CDT Height 190.5 cm (6' 3 ) 06/06/2022 9:13 AM CDT Body Mass Index 45.62 06/06/2022 9:13 AM CDT documented in this encounter Progress Notes * Trinity Encarnacion NP - 06/06/2022 9:15 AM CDT Images from the original note were not included. Patient ID: Kwaku Kulkarni is a 57 y.o. male. HPI. Patient is a 57 y.o. male returns for follow-up of asthma, lung cancer, chronic cough and LEONOR.The patient is using Trelegy one inhalation once a day. The patient states he continues with a chronic cough. The patient states he is occasionally productive. The patient states he does occasionallywheeze. The patient states that the cough is worse with activity or being outside. The patient continues with CT scans from his oncologist. Chief Complaint Patient presents with Follow-up Current Medications: Outpatient Encounter Medications as of 06/06/2022 Medication Sig Dispense Refill albuterol HFA (PROVENTIL HFA,VENTOLIN HFA,PROAIR HFA) 90 mcg/actuation inhaler Inhale 2 puffs every6 (six) hours as needed for wheezing Fill per patient's formulary 1 each 11 amLODIPine (NORVASC) 10 mg tablet Take 10 mg by mouth every morning ascorbic acid (VITAMIN C) 1,000 mg tablet Take 1,000 mg by mouth daily cholecalciferol (VITAMIN D-3) 50,000 unit capsule Take 50,000 Units by mouth fexofenadine (HUI) 180 mg tablet Take 1 tablet (180 mg total) by mouth daily 30 tablet 11 fluticasone propionate (FLONASE) 50 mcg/actuation nasal spray Administer 2 sprays into each nostrildaily 16 g 6 zzyejrvulrc-glefxxhss-kgnypixm (Trelegy Ellipta) 100-62.5-25 mcg inhaler Inhale 1 puff daily 60 each 3 montelukast (SINGULAIR) 10 mg tablet Take 1 tablet (10 mg total) by mouth nightly 30 tablet 11 multivitamin capsule Take 1 capsule by mouth daily nitroglycerin (NITROSTAT) 0.[address] 0.4 mg under the tongue every 5 (five) minutes as needed pantoprazole DR (PROTONIX) 40 mg EC tablet Take 1 tablet (40 mg total) by mouth daily 30 tablet 11 pravastatin (PRAVACHOL) 20 mg tablet Take 20 mg by mouth every morning No facility-administered encounter medications on file as of 06/06/2022. Review of Systems Constitutional: Negative for fever. HENT: Negative for tinnitus. Eyes: Negative for visual disturbance. Respiratory: Positive for cough and shortness of breath. Negative for wheezing. Cardiovascular: Negative for chest pain. Gastrointestinal: Negative for diarrhea, nausea and vomiting. Skin: Negative for rash. Neurological: Negative for dizziness. BP 145/87 (BP Location: Left arm, Patient Position: Sitting) Pulse 80 Temp 36.8 ??C (98.3 ??F) Resp 18 Ht 190.5 cm (6' 3 ) Wt (!) 165.6 kg (365 lb) SpO2 94% BMI 45.62 kg/m?? Physical Exam Constitutional: General: He is not in acute distress. HENT: Mouth/Throat: Pharynx: No oropharyngeal exudate. Eyes: Pupils: Pupils are equal, round, and reactive to light. Cardiovascular: Rate and Rhythm: Normal rate and regular rhythm. Pulmonary: Effort: Pulmonary effort is normal. Breath sounds: Normal breath sounds. No wheezing. Abdominal: Palpations: Abdomen is soft. Musculoskeletal: Cervical back: Normal range of motion. Imagin05/08/22 PFT Impression: Normal spirometry without any evidence of obstruction or change post bronchodilator therapy. Lung volumes demonstrate moderate restrictive ventilatory impairment, likely contributed by elevated BMI. DLCO is normal without any evidence of diffusion impairment. Electronically signed by Assessment & Plan: Diagnoses and all orders for this visit: Cough, persistent (Primary) - Ambulatory referral to Allergy and Immunology; Future LEONOR (obstructive sleep apnea) Assessment & Plan: Patient will continue with positional therapy. I did encourage the patient to resume CPAP therapy at an auto titrating range of 5-20 cm water pressure. Mild intermittent asthma without complication Assessment & Plan: The patient will continue with Trelegy 1 puff daily and rinse mouth after use. Patient will continue with Albuterol up to 4 times a day, Singulair, Protonix, Hui, and Flonase. The patient is going to get the IgE level today. I did refer him to Dr. Amador. Right lower lobe pulmonary nodule Assessment & Plan: Continues to follow with oncology and CT scanning Return in about 6 weeks (around 07/18/2022). Trinity Encarnacion NP documented in this encounter Miscellaneous Notes * Assessment & Plan Note - Trinity Encarnacion NP - 06/06/2022 9:50 AM CDT Associated Problem(s): Right lower lobe pulmonary nodule (Deleted) Continues to follow with oncology and CT scanning * Assessment & Plan Note - Trinity Encarnacion NP - 06/06/2022 9:47 AM CDT Associated Problem(s): Mild intermittent asthma without complication The patient will continue with Trelegy 1 puff daily and rinse mouth after use. Patient will continue with Albuterol up to 4 times a day, Singulair, Protonix, Hui, and Flonase. The patient is going to get the IgE level today. I did refer him to Dr. Amador. * Assessment & Plan Note - Trinity Encarnacion NP - 06/06/2022 9:47 AM CDT Associated Problem(s): LEONOR (obstructive sleep apnea) Patient will continue with positional therapy. I did encourage the patient to resume CPAP therapy at an auto titrating range of 5-20 cm water pressure. documented in this encounter Plan of Treatment Not on file documented as of this encounter Visit Diagnoses Diagnosis Cough, persistent- Primary LEONOR (obstructive sleep apnea) Obstructive sleep apnea (adult) (pediatric) Mild intermittent asthma without complication Right lower lobe pulmonary nodule documented in this encounter Care Teams Groundskeeping Yardman Relationship Specialty Start Date End Date Clara Stanley PA [address] [place] [id number] PCP - General Nurse Practitioner 04/05/19 Jasper Canchola MD [address] [place] [address] Surgeon Thoracic Surgery 05/11/19 Alexis Lopez MD [facility] [address] [address] Wrapper Layer And Examiner Soft Work Pulmonary Disease 05/11/19 Kip Del Rio MD [address] [facility] [address] [place] [address] Medical Oncologist/Roguer Hematology and Oncology 05/11/19 Jacob Flynn MD [address] [facility] [address] [place] [address] Radiation Oncologist Radiation Oncology 05/25/19 documented as of this encounter
--- OUTSIDE RECORDS SUMMARY | 2024-03-02 03:43 | XMS_ITS | Encounter Summary ---
Author Organization [facility] Address [address] [place] [address] Care Team Providers Care Retail Grocer Name Role Phone Clara Stanley Primary Care Provider + Jasper Canchola MD Unavailable Alexis Lopez MD Unavailable [phone] Kip Del Rio MD Unavailable Jacob Flynn MD Unavailable Reason for Referral * MRI/CAT/PET Scan (Routine) - Closed Specialty Diagnoses / Procedures Referred By Erik galdamez Referred To Contact 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 follow-up examination Procedures CT Chest Abdomen Pelvis W Contrast Julia Mckenna NP Phone: tel: fax: [address] [phone] Referral ID Status Reason Start Date Expiration Date Visits Re quested Visits Authorized [id number] Closed 09/11/2021 10/11/2022 1 1 Reason for Visit * MRI/CAT/PET Scan (Routine) - Closed Specialty Diagnoses / Procedures Referred By Erik galdamez Referred To Contact 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 follow-up examination Procedures CT Chest Abdomen Pelvis W Contrast Julia Mckenna NP Phone: tel: fax: [address] [phone] Referral ID Status Reason Start Date Expiration Date Visits Re quested Visits Authorized [id number] Closed 09/11/2021 10/11/2022 1 1 Encounter Details Date Type Department Care Team (Latest Contact Info) Description 12/10/2021 11:42 AM CDT - 12/10/2021 11:59 PM CDT Hospital Encounter [facility] [place] [address] Carcinoid tumor of right lung; Radiotherapy follow-up examination Discharge Disposition: Discharge to home or self [...] on file 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 Gender Identity Not on file Sexual Orientation [...] 1 capsule (50,000 Units total) by mouth multivitamin capsule Take 1 capsule by mouth daily benzonatate (TESSALON) 200 mg capsuleIndication s:Malignant neoplasm of lower lobe of right lung (HCC),Cough Take 1 capsule (200 mg total) by mouth 3 (three) times a day as needed for cough 90 capsule 1 12/10/2021 01/09/2022 cetirizine (ZyrTEC) 10 mg tabletIndications :Seasonal Allergic Rhinitis Take 10 mg by mouth every morning 02/26/2022 fluticasone propionate (FLONASE) 50 mcg/actuation nasal spray 06/12/2019 02/26/2022 LORazepam (ATIVAN) 0.5 mg tabletIndications :anxiety Take 0.5 mg by mouth every 6 (six) hours as needed for anxiety 02/10/2022 pravastatin (PRAVACHOL) 20 mg tabletIndications :hyperlipidemia Take 1 tablet (20 mg total) by mouth every morning 04/10/2019 10/01/2023 Symbicort 160-4.5 mcg/actuation inhaler INHALE 2 PUFFS BY MOUTH TWICE DAILY. RINSE MOUTH WITH WATER AFTER USE. DO NOT SWALLOW 10.2 g 1 09/12/2021 02/10/2022 documented as of this encounter Discharge Disposition Disposition Code Departure Means Destination Discharge to home or self care documented in this encounter Plan of Treatment Not on file documented as of this encounter Procedures Procedure Name Priority Date/Time Associated Diagnosis Comments CT CHEST ABDOMEN PELVIS W CONTRAST Schedule Routine, Read Routine (OP Routine) 12/10/2021 12:11 PM CDT Carcinoid tumor of right lung Radiotherapy follow-up examination POCT CREATININE - DEVICE Routine 12/10/2021 11:57 AM CDT documented in this encounter Results * CT Chest Abdomen Pelvis W Contrast (12/10/2021 12:11 PM CDT) Anatomical Region Laterality Modality Body N/A Computed Tomogra phy 12/10/2021 3:16 PM CDT Impressions 12/10/2021 6:23 PM CDT 1. ??High right paratracheal lymph node is unchanged in size compared to prior study with no evidence of disease progression. Dictated by: Dagoberto Jang MD The radiology attending physician has personally reviewed this study, and had reviewed and/or edited this written report and agrees with it. Electronically signed by: Rosangela Peña M.D. 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 Follow-up. TECHNIQUE: ??Transaxial computed tomographic images of the chest, abdomen and pelvis ??were obtained with intravenous contrast according to the standard protocol after the uneventful administration of 120 mL Opti-Ray 350 intravenous contrast. COMPARISON: CT dated 09/11/2021 FINDINGS: ?? Chest: Postoperative findings of a right lower lobectomy are seen with elevation the right hemidiaphragm. There is a small right pleural effusion, approximately unchanged compared to prior study. There is no pericardial effusion. No new pulmonary parenchymal lesions are seen. A high right pretracheal lymph node is redemonstrated and approximately unchanged in size. No new axillary, mediastinal, or supraclavicular lymphadenopathy is seen. There are no thyroid lesions. Abdomen/Pelvis: The liver is normal with no lesion seen. The spleen is unremarkable. There are no pancreatic lesions. The gallbladder is normal. No renal lesions are seen. There is no hydronephrosis. No adrenal lesions are seen. The bladder and prostate are normal. There is diverticulosis of the colon without evidence of diverticulitis. There are mild vascular calcifications of the iliac vessels. There is no abdominal or pelvic lymphadenopathy. Diffuse idiopathic skeletal hyperostosis of the thoracic spine is seen. No osseous lesions are seen. ??There are reactive inguinal lymph nodes. ??There is degenerative disc disease and healed fractures of right 5-7th posterior ribs. ?? 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 Follow-up. TECHNIQUE: Transaxial computed tomographic images of the chest, abdomen and pelvis were obtained with intravenous contrast according to the standard protocol after the uneventful administration of 120 mL Opti-Ray 350 intravenous contrast. COMPARISON: CT dated 09/11/2021 FINDINGS: Chest: Postoperative findings of a right lower lobectomy are seen with elevation the right hemidiaphragm. There is a small right pleural effusion, approximately unchanged compared to prior study. There is no pericardial effusion. No new pulmonary parenchymal lesions are seen. A high right pretracheal lymph node is redemonstrated and approximately unchanged in size. No new axillary, mediastinal, or supraclavicular lymphadenopathy is seen. There are no thyroid lesions. Abdomen/Pelvis: The liver is normal with no lesion seen. The spleen is unremarkable. There are no pancreatic lesions. The gallbladder is normal. No renal lesions are seen. There is no hydronephrosis. No adrenal lesions are seen. The bladder and prostate are normal. There is diverticulosis of the colon without evidence of diverticulitis. There are mild vascular calcifications of the iliac vessels. There is no abdominal or pelvic lymphadenopathy. Diffuse idiopathic skeletal hyperostosis of the thoracic spine is seen. No osseous lesions are seen. There are reactive inguinal lymph nodes. There is degenerative disc disease and healed fractures of right 5-7th posterior ribs. IMPRESSION: 1. High right paratracheal lymph node is unchanged in size compared to prior study with no evidence of disease progression. Dictated by: Dagoberto Jang MD The radiology attending physician has personally reviewed this study, and had reviewed and/or edited this written report and agrees with it. Electronically signed by: Rosangela Peña M.D. Julia Mckenna NP IMG CT PROCEDURES Final R esult * POCT creatinine (12/10/2021 11:57 AM CDT) Creatinine POC 0.9 0.7 - 1.3 mg/dL [facility] Blood 12/10/2021 11:5 7 AM CDT 12/10/2021 11:57 AM CDT us Kip Del Rio MD LAB POCT ORDERABLES - XIOMARA CE Final Result [facility] Department [place] [address] documented in this encounter Visit Diagnoses Diagnosis Carcinoid tumor of right lung Radiotherapy follow-up examination documented in this encounter Administered Medications Inactive Administered Medications - up to 3 most recent administrations Medication Order MAR Action Action Date Dose Rate Site ioversoL (OPTIRAY 350) syringe 125 mL 125 mL, intravenous, Once in imaging, contrast, Starting on 12/10/21 at 1210, For 1 dose Contrast Given 12/10/2021 12:14 PM CDT 120 mL documented in this encounter Orders Medications Ordered That Vikram ht Not Have Been Administered Count Last Ordered Date First Ordered Date ioversoL (OPTIRAY 350) syringe 125 mL 1 documented in this encounter Care Teams Retail Grocer Relationship Specialty Start Date End Date Clara Stanley PA [address] [place] [id number] PCP - General Nurse Practitioner 04/05/19 Jasper Canchola MD [address] [place] [address] Surgeon Thoracic Surgery 05/11/19 Alexis Lopez MD [address] [address] Bankruptcy Attorney Pulmonary Disease 05/11/19 Kip Del Rio MD [address] [facility] [address] [place] [address] Medical Oncologist/Drop Hammer Set Up Operator Hematology and Oncology 05/11/19 Jacob Flynn MD [address] [facility] [address] [place] [address] Radiation Oncologist Radiation Oncology 05/25/19 documented as of this encounter
--- OUTSIDE RECORDS SUMMARY | 2024-03-02 03:43 | XMS_ITS | Encounter Summary ---
Author Organization [facility] Address [address] [place] [address] Care Team Providers Care Wedger Machine Name Role Phone Clara Stanley Primary Care Provider + Jasper Canchola MD Unavailable Alexis Lopez MD Unavailable [phone] Kip Del Rio MD Unavailable Jacob Flynn MD Unavailable Reason for Referral * MRI/CAT/PET Scan (Routine) - Closed Specialty Diagnoses / Procedures Referred By Erik galdamez Referred To Contact Radiology Diagnoses 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) Radiotherapy follow-up examination Procedures CT Chest Abdomen Pelvis W Contrast Julia Mckenna NP Phone: tel: fax: [address] [address] Referral ID Status Reason Start Date Expiration Date Visits Re quested Visits Authorized [id number] Closed 09/09/2021 03/08/2022 1 1 Reason for Visit * MRI/CAT/PET Scan (Routine) - Closed Specialty Diagnoses / Procedures Referred By Erik galdamez Referred To Contact Radiology Diagnoses 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) Radiotherapy follow-up examination Procedures CT Chest Abdomen Pelvis W Contrast Julia Mckenna NP Phone: tel: fax: [address] [phone] Referral ID Status Reason Start Date Expiration Date Visits Re quested Visits Authorized [id number] Closed 09/09/2021 03/08/2022 1 1 Encounter Details Date Type Department Care Team (Latest Contact Info) Description 09/11/2021 12:25 PM CDT - 09/11/2021 11:59 PM CDT Hospital Encounter [facility] [address] [place] [id number] Neuroendocrine carcinoma of lung (CMS/HCC) (HCC); Malignant neoplasm of lower lobe of right lung (CMS/HCC) (HCC); Radiotherapy follow-up examination Discharge Disposition: Discharge to [...] on file 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 Do not swallow. 1 Inhaler 5 08/25/2019 09/12/2021 cetirizine (ZyrTEC) 10 mg tabletIndications :Seasonal Allergic Rhinitis Take 10 mg by mouth every morning 02/26/2022 fluticasone propionate (FLONASE) 50 mcg/actuation nasal spray 06/12/2019 02/26/2022 LORazepam (ATIVAN) 0.5 mg tabletIndications :anxiety Take 0.5 mg by mouth every 6 (six) hours as needed for anxiety 02/10/2022 pravastatin (PRAVACHOL) 20 mg tabletIndications :hyperlipidemia Take 1 tablet (20 mg total) by mouth every morning 04/10/2019 10/01/2023 documented as of this encounter Discharge Disposition Disposition Code Departure Means Destination Discharge to home or self care documented in this encounter Plan of Treatment Not on file documented as of this encounter Procedures Procedure Name Priority Date/Time Associated Diagnosis Comments CT CHEST ABDOMEN PELVIS W CONTRAST Schedule Routine, Read Routine (OP Routine) 09/11/2021 1:31 PM CDT Neuroendocrine carcinoma of lung (CMS/HCC) (HCC) Malignant neoplasm of lower lobe of right lung (CMS/HCC) (HCC) Radiotherapy follow-up examination POCT CREATININE - DEVICE Routine 09/11/2021 12:55 PM CDT documented in this encounter Results * CT Chest Abdomen Pelvis W Contrast (09/11/2021 1:31 PM CDT) Anatomical Region Laterality Modality Body N/A Computed Tomogra phy 09/11/2021 1:46 PM CDT Impressions 09/11/2021 1:46 PM CDT 1. ??Postsurgical changes of right lower lobectomy with stable post radiation changes at the paramediastinal upper right lung. There has been interval resolution of several pulmonary nodules at the right lung base and additional stable pulmonary nodules. No new or increasing pulmonary nodules are appreciated. 2. ??A high right paratracheal lymph node is stable in size. No evidence of new or worsening thoracic lymphadenopathy. 3. ??No evidence of metastatic disease within the abdomen or pelvis. There is mild hepatosplenomegaly with diffuse hepatic steatosis. Electronically signed by: Kwaku Grace M.D. Narrative 09/11/2021 1:46 PM CDT EXAMINATION: ??Computed tomography of the chest, abdomen and pelvis with intravenous contrast HISTORY: 56-year-old man with history of neuroendocrine carcinoma of the right lung, status post right lower lobectomy and mediastinal lymph node dissection. Follow-up. TECHNIQUE: ??Transaxial computed tomographic images of the chest, abdomen and pelvis were obtained with intravenous contrast according to the standard protocol after the uneventful administration of 115 mL Opti-Ray 350 intravenous contrast. COMPARISON: CT chest abdomen and pelvis dated 06/07/2021 FINDINGS: ?? Chest: The thyroid gland appears normal. A 13 mm right paratracheal lymph node (series 3, image 24) is stable. Additional small mediastinal lymph nodes are stable. A right hilar lymph node (image 58) is stable at 13 mm in short axis. No supraclavicular or axillary lymphadenopathy. The heart is normal in size. No pericardial effusion. There is minimal calcific atherosclerotic involvement of the coronary arteries. Postsurgical changes of right lower lobectomy are redemonstrated. Paramediastinal architectural distortion within the superior right upper lobe. A 4 mm pulmonary nodule and a 5 mm subpleural nodule at the right lung base of both stable (series 4, images 75 and 77). Additional right lower lobe nodularity has resolved since the prior exam. Pleural thickening along the posterior right lung base with a calcification is likely postoperative. No pneumonic pulmonary consolidation, pleural effusion, or pneumothorax. Abdomen/Pelvis: There is mild hepatomegaly with diffuse hepatic steatosis. No focal hepatic lesion is appreciated. No biliary ductal dilatation. The gallbladder appears normal. The adrenal glands and pancreas appear normal. There is mild splenomegaly, measuring up to 14.2 cm in an oblique axis. The kidneys are normal without hydronephrosis or nephrolithiasis. The urinary bladder appears normal. The prostate gland is normal in size. The stomach, small bowel, and colon are normal in course and caliber without focal wall thickening or evidence of obstruction. The appendix appears be surgically absent. There is mild sigmoid diverticulosis without findings of diverticulitis. No free intraperitoneal fluid or gas. No abdominopelvic lymphadenopathy. The abdominal vasculature is grossly patent with mild calcific atherosclerotic involvement of the bilateral iliac arteries. Bone windows demonstrate no suspicious osseous lesions. There are healed right posterior rib fractures redemonstrated, perhaps from prior thoracotomy. Procedure Note Kwaku Grace MD - 09/11/2021 EXAMINATION: Computed tomography of the chest, abdomen and pelvis with intravenous contrast HISTORY: 56-year-old man with history of neuroendocrine carcinoma of the right lung, status post right lower lobectomy and mediastinal lymph node dissection. Follow-up. TECHNIQUE: Transaxial computed tomographic images of the chest, abdomen and pelvis were obtained with intravenous contrast according to the standard protocol after the uneventful administration of 115 mL Opti-Ray 350 intravenous contrast. COMPARISON: CT chest abdomen and pelvis dated 06/07/2021 FINDINGS: Chest: The thyroid gland appears normal. A 13 mm right paratracheal lymph node (series 3, image 24) is stable. Additional small mediastinal lymph nodes are stable. A right hilar lymph node (image 58) is stable at 13 mm in short axis. No supraclavicular or axillary lymphadenopathy. The heart is normal in size. No pericardial effusion. There is minimal calcific atherosclerotic involvement of the coronary arteries. Postsurgical changes of right lower lobectomy are redemonstrated. Paramediastinal architectural distortion within the superior right upper lobe. A 4 mm pulmonary nodule and a 5 mm subpleural nodule at the right lung base of both stable (series 4, images 75 and 77). Additional right lower lobe nodularity has resolved since the prior exam. Pleural thickening along the posterior right lung base with a calcification is likely postoperative. No pneumonic pulmonary consolidation, pleural effusion, or pneumothorax. Abdomen/Pelvis: There is mild hepatomegaly with diffuse hepatic steatosis. No focal hepatic lesion is appreciated. No biliary ductal dilatation. The gallbladder appears normal. The adrenal glands and pancreas appear normal. There is mild splenomegaly, measuring up to 14.2 cm in an oblique axis. The kidneys are normal without hydronephrosis or nephrolithiasis. The urinary bladder appears normal. The prostate gland is normal in size. The stomach, small bowel, and colon are normal in course and caliber without focal wall thickening or evidence of obstruction. The appendix appears be surgically absent. There is mild sigmoid diverticulosis without findings of diverticulitis. No free intraperitoneal fluid or gas. No abdominopelvic lymphadenopathy. The abdominal vasculature is grossly patent with mild calcific atherosclerotic involvement of the bilateral iliac arteries. Bone windows demonstrate no suspicious osseous lesions. There are healed right posterior rib fractures redemonstrated, perhaps from prior thoracotomy. IMPRESSION: 1. Postsurgical changes of right lower lobectomy with stable post radiation changes at the paramediastinal upper right lung. There has been interval resolution of several pulmonary nodules at the right lung base and additional stable pulmonary nodules. No new or increasing pulmonary nodules are appreciated. 2. A high right paratracheal lymph node is stable in size. No evidence of new or worsening thoracic lymphadenopathy. 3. No evidence of metastatic disease within the abdomen or pelvis. There is mild hepatosplenomegaly with diffuse hepatic steatosis. Electronically signed by: Kwaku Grace M.D. us Julia Mckenna NP IMG CT PROCEDURES Final R esult * POCT creatinine (09/11/2021 12:55 PM CDT) Creatinine POC 0.7 0.7 - 1.3 mg/dL [facility] Blood 09/11/2021 12:5 5 PM CDT 09/11/2021 12:55 PM CDT us Julia Mckenna NP LAB POCT ORDERABLES - DEV ICE Final Result [facility] Department [place] [address] documented in this encounter Visit Diagnoses Diagnosis 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) Radiotherapy follow-up examination documented in this encounter Administered Medications Inactive Administered Medications - up to 3 most recent administrations Medication Order MAR Action Action Date Dose Rate Site ioversoL (OPTIRAY 350) syringe syringe 125 mL 125 mL, intravenous, Once in imaging, contrast, Starting on Thu09/11/21 at 1319, For 1 dose Contrast Given 09/11/2021 1:27 PM CDT 115 mL documented in this encounter Orders Medications Ordered That Vikram ht Not Have Been Administered Count Last Ordered Date First Ordered Date ioversoL (OPTIRAY 350) syrin ge syringe 125 mL 1 09/11/2021 documented in this encounter Care Teams Wedger Machine Relationship Specialty Start Date End Date Clara Stanley PA [address] [place] [id number] PCP - General Nurse Practitioner 04/05/19 Jasper Canchola MD [address] [place] [address] Surgeon Thoracic Surgery 05/11/19 Alexis Lopez MD [address] [address] Boiler Mechanic Pulmonary Disease 05/11/19 Kip Del Rio MD [address] [facility] [place] [address] Medical Oncologist/Energy Projects Lead Hematology and Oncology 05/11/19 Jacob Flynn MD [address] [place] [address] Radiation Oncologist Radiation Oncology 05/25/19 documented as of this encounter
--- OUTSIDE RECORDS SUMMARY | 2024-03-02 03:43 | XMS_ITS | Encounter Summary ---
Author Organization [facility] Address [address] [place] [address] Care Team Providers Care Auction Assistant Name Role Phone Clara Stanley Primary Care Provider + Jasper Canchola MD Unavailable Alexis Lopez MD Unavailable [phone] Kip Del Rio MD Unavailable [phone] Jacob Flynn MD Unavailable Renetta Ballesteros NP Unavailable [phone] Reason for Referral * MRI/CAT/PET Scan (Routine) - Closed Specialty Diagnoses / Procedures Referred By Erik galdamez Referred To Contact Radiology Diagnoses Malignant neoplasm of lower lobe of right lung (HCC) Radiotherapy follow-up examination Procedures CT Chest Abdomen Pelvis W Contrast Julia Mckenna NP Phone: tel: fax: [address] [address] Referral ID Status Reason Start Date Expiration Date Visits Re quested Visits Authorized [id number] Closed 03/04/2022 04/03/2023 1 1 Reason for Visit * MRI/CAT/PET Scan (Routine) - Closed Specialty Diagnoses / Procedures Referred By Erik galdamez Referred To Contact Radiology Diagnoses Malignant neoplasm of lower lobe of right lung (HCC) Radiotherapy follow-up examination Procedures CT Chest Abdomen Pelvis W Contrast Julia Mckenna NP Phone: tel: fax: [address] [address] Referral ID Status Reason Start Date Expiration Date Visits Re quested Visits Authorized [id number] Closed 03/04/2022 04/03/2023 1 1 Encounter Details Date Type Department Care Team (Latest Contact Info) Description 06/11/2022 10:05 AM CDT - 06/11/2022 11:59 PM CDT Hospital Encounter [facility] [address] [place] [id number] Malignant neoplasm of lower lobe of [...] on file 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 Gender Identity Not on file Sexual [...] per patient's formulary 1 each 02/26/2022 4 benzonatate (TESSALON) 200 mg capsule TAKE 1 CAPSULE BY MOUTH THREE TIMES DAILY NEEDED FOR COUGH 05/11/2022 3 fluticasone-umecli din-vilanter (Trelegy Ellipta) 100-62.5-25 mcg inhaler Inhale 1 puff daily 60 each 3 03/31/2022 3 montelukast (SINGULAIR) 10 mg tabletIndications: Mild [...] total) by mouth every morning 04/10/2019 4 predniSONE (DELTASONE) 50 mg tablet TAKE 1 TABLET BY MOUTH DAILY FOR 5 DAYS 05/11/2022 3 documented as of this encounter Discharge Disposition Disposition Code Departure Means Destination Discharge to home or self care documented in this encounter Plan of Treatment Not on file documented as of this encounter Procedures Procedure Name Priority Date/Time Associated Diagnosis Comments CT CHEST ABDOMEN PELVIS W CONTRAST Schedule Routine, Read Routine (OP Routine) 06/11/2022 11:10 AM CDT Malignant neoplasm of lower lobe of right lung (CMS/HCC) (HCC) Radiotherapy follow-up examination POCT CREATININE - DEVICE Routine 06/11/2022 10:26 AM CDT documented in this encounter Results * CT Chest Abdomen Pelvis W Contrast (06/11/2022 11:10 AM CDT) Anatomical Region Laterality Modality Body N/A Computed Tomogra phy 06/11/2022 12:2 2 PM CDT Impressions 06/11/2022 12:22 PM CDT 1. ??Small pulmonary nodules appear unchanged. ??No new nodules. 2. ??Similar appearance of mediastinal and right hilar lymph nodes. 3. 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 Electronically signed by: MD Damion Mclaughlin 06/11/2022 12:22 PM CDT EXAMINATION: ??Computed tomography of the chest, abdomen and pelvis with intravenous contrast HISTORY: Malignant neoplasm of lower lobe of right lung. ??Radiation therapy follow-up. TECHNIQUE: ??Transaxial computed tomographic images of the chest, abdomen and pelvis were obtained with intravenous contrast according to the standard protocol after the uneventful administration of 89 mL Opti-Ray 350 intravenous contrast. COMPARISON: CT chest abdomen pelvis 03/04/2022 FINDINGS: ?? Chest: Partially imaged thyroid gland is unremarkable. ??Heart size is normal. ??No pericardial effusion or thickening. ??Coronary artery calcifications are present. ??The thoracic aorta is normal in course and caliber and contains a small amount calcified atherosclerotic plaque. ??There is no large central pulmonary embolus. ??There is mild gynecomastia. ??There is no axillary or hilar lymphadenopathy. ??In the upper posterior right paratracheal region there is a 1.2 cm lymph node. ??There is a 2.0 cm right paratracheal lymph node which is unchanged. There is a trace right-sided pleural effusion which is unchanged. The central airways are patent. ??There is no pneumothorax. ??There are postoperative changes of a right lower lobectomy. ??There is elevation of the right hemidiaphragm. ??There is an unchanged 4 mm nodule in the right upper lobe on image #78. ??Unchanged 3 mm nodule in the right upper lobe on image #70. ??Additional similar sized nodules appear unchanged. ??There are stable appearing ground glass opacities in the right upper lobe medially, likely sequela of radiation therapy. Abdomen/Pelvis: No hepatic lesion or biliary dilatation. ??Gallbladder appears normal. Normal spleen, adrenal glands, pancreas, and kidneys. ??No hydronephrosis or hydroureter. Abdominal aorta is normal in course and caliber. ??Scattered small retroperitoneal lymph nodes are present. ??Central mesenteric groundglass opacities with small mesenteric nodes appear similar to the reference examination. 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 Distal esophagus and stomach are unremarkable. ??No dilated loops of small bowel. ??Appendix not visualized. ??Colonic diverticulosis without diverticulitis. ??No free fluid or free gas within the abdomen or pelvis. Urinary bladder is unremarkable. ??Prostate is present. ??No suspicious osseous lesion. ??Small fat-containing umbilical hernia. Procedure Note Herrera Delarosa MD - 06/11/2022 EXAMINATION: Computed tomography of the chest, abdomen and pelvis with intravenous contrast HISTORY: Malignant neoplasm of lower lobe of right lung. Radiation therapy follow-up. TECHNIQUE: Transaxial computed tomographic images of the chest, abdomen and pelvis were obtained with intravenous contrast according to the standard protocol after the uneventful administration of 89 mL Opti-Ray 350 intravenous contrast. COMPARISON: CT chest abdomen pelvis 03/04/2022 FINDINGS: Chest: Partially imaged thyroid gland is unremarkable. Heart size is normal. No pericardial effusion or thickening. Coronary artery calcifications are present. The thoracic aorta is normal in course and caliber and contains a small amount calcified atherosclerotic plaque. There is no large central pulmonary embolus. There is mild gynecomastia. There is no axillary or hilar lymphadenopathy. In the upper posterior right paratracheal region there is a 1.2 cm lymph node. There is a 2.0 cm right paratracheal lymph node which is unchanged. There is a trace right-sided pleural effusion which is unchanged. The central airways are patent. There is no pneumothorax. There are postoperative changes of a right lower lobectomy. There is elevation of the right hemidiaphragm. There is an unchanged 4 mm nodule in the right upper lobe on image #78. Unchanged 3 mm nodule in the right upper lobe on image #70. Additional similar sized nodules appear unchanged. There are stable appearing ground glass opacities in the right upper lobe medially, likely sequela of radiation therapy. Abdomen/Pelvis: No hepatic lesion or biliary dilatation. Gallbladder appears normal. Normal spleen, adrenal glands, pancreas, and kidneys. No hydronephrosis or hydroureter. Abdominal aorta is normal in course and caliber. Scattered small retroperitoneal lymph nodes are present. Central mesenteric groundglass opacities with small mesenteric nodes appear similar to the reference examination. 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 Distal esophagus and stomach are unremarkable. No dilated loops of small bowel. Appendix not visualized. Colonic diverticulosis without diverticulitis. No free fluid or free gas within the abdomen or pelvis. Urinary bladder is unremarkable. Prostate is present. No suspicious osseous lesion. Small fat-containing umbilical hernia. IMPRESSION: 1. Small pulmonary nodules appear unchanged. No new nodules. 2. Similar appearance of mediastinal and right hilar lymph nodes. 3. 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 Electronically signed by: Herrera Delarosa MD Julia Mckenna NP IMG CT PROCEDURES Final R esult * POCT creatinine (06/11/2022 10:26 AM CDT) Creatinine POC 0.8 0.7 - 1.3 mg/dL [facility] Blood 06/11/2022 10:2 6 AM CDT 06/11/2022 10:26 AM CDT us Kip Del Rio MD LAB POCT ORDERABLES - XIOMARA CE Final Result [facility] [place] [address] documented in this encounter Visit Diagnoses Diagnosis Malignant neoplasm of lower lobe of right lung (HCC) Radiotherapy follow-up examination documented in this encounter Administered Medications Inactive Administered Medications - up to 3 most recent administrations Medication Order MAR Action Action Date Dose Rate Site ioversoL (OPTIRAY 350) injection 100 mL 100 mL, intravenous, Once in imaging, contrast, Starting on Thu06/11/22 at 1109, For 1 dose Contrast Given 06/11/2022 11:09 AM CDT 89 mL documented in this encounter Orders Medications Ordered That Vikram ht Not Have Been Administered Count Last Ordered Date First Ordered Date ioversoL (OPTIRAY 350) injection 100 mL 1 0 06/11/2022 documented in this encounter Care Teams Auction Assistant Relationship Specialty Start Date End Date lCara Stanley PA [address] [place] [address] PCP - General Nurse Practitioner 04/05/19 Jasper Canchola MD [address] [place] [address] Surgeon Thoracic Surgery 05/11/19 Alexis Lopez MD [address] [address] Bathhouse Attendant Pulmonary Disease 05/11/19 Kip Del Rio MD [address] [place] [address] Medical Oncologist/First Sampler Hematology and Oncology 05/11/19 Jacob Flynn MD [address] [place] [address] Radiation Oncologist Radiation Oncology 05/25/19 Renetta Ballesteros NP [address] [place] [address] Nurse Practitioner Radiation Oncology 06/11/22 documented as of this encounter
--- OUTSIDE RECORDS SUMMARY | 2024-03-02 03:43 | XMS_ITS | Encounter Summary ---
Author Organization [facility] Address [address] [place] [address] Care Team Providers Care Conveyor Man Name Role Phone Clara Stanley Primary Care Provider + Jasper Canchola MD Unavailable Alexis Lopez MD Unavailable [phone] Kip Del Rio MD Unavailable Jacob Flynn MD Unavailable Renetta Ballesteros NP Unavailable Encounter Details Date Type Department Care Team (Late st Contact Info) Description 08/19/2022 Telephone [facility] Pulmonology [address] [facility] [address] [place] [address] Yolanda Segal, KAMILA Social History Tobacco Use Types Packs/Day [...] on file 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 documented in this encounter Plan of Treatment Not on file documented as of this encounter Visit Diagnoses Not on filedocumented in this encounter Care Teams Conveyor Man Relationship Specialty Start Date End Date Clara Stanley PA [address] [place] [address] PCP - General Nurse Practitioner 04/05/19 Jaspre Canchola MD [address] [place] [address] Surgeon Thoracic Surgery 05/11/19 Alexis Lopez MD [address] [facility] [address] [address] [employer] Principal Pulmonary Disease 05/11/19 Kip Del Rio MD [address] [facility] [address] [place] [address] Medical Oncologist/Fusion Analyst Hematology and Oncology 05/11/19 Jacob Flynn MD [address] [place] [address] Radiation Oncologist Radiation Oncology 05/25/19 Renetta Ballesteros NP [address] [place] [address] Nurse Practitioner Radiation Oncology 06/11/22 documented as of this encounter
--- OUTSIDE RECORDS SUMMARY | 2024-03-02 03:43 | XMS_ITS | Encounter Summary ---
Author Organization formerly [facility] Address [address] [place] [address] Care Team Providers Care Lapel Padder Blindstitch Name Role Phone Clara Stanley Primary Care [...] Contrast Julia Mckenna NP Phone: tel: fax: [address] [address] Referral ID Status Reason Start Date Expiration Date Visits Re quested Visits Authorized [id number] Closed 09/11/2021 10/11/2022 1 1 Reason for Visit * Reason Comments Follow-up Prior CT Encounter Details Date Type Department Care Team (Late st Contact Info) Description 09/11/2021 1:00 PM CDT Office Visit [facility] Radiation Oncology [address] [place] [address] Julia Mckenna NP [address] [facility] [address] [place] [address] Carcinoid tumor of right lung (Primary Dx); Radiotherapy follow-up examination Social History Tobacco Use Types Packs/Day Years [...] on file 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 [...] was last seen in radiation oncology on 06/07/2021 with a phone visit. Patient is here today for follow up visit and review of restaging images to assess for progression of disease and post radiation toxicity. PAST MEDICAL, SURGICAL, FAMILY, AND SOCIAL HISTORY History Last Reviewed by Julia Mckenna NP on 09/11/2021 at 2:14 PM Sections Reviewed Tobacco, Social Documentation, Medical, Surgical, Family, Socioeconomic ALLERGIES: Allergies as of 09/11/2021 Reviewed by Julia Mckenna NP on 09/11/2021 No Known Allergies MEDICATIONS: Review Info User Date and Time JULIA MCKENNA NP [[id number]] 09/11/2021 2:13 PM Review of Systems Constitutional: Negative. HENT: Negative. Eyes: Negative. Respiratory: Negative. Cardiovascular: Negative. Gastrointestinal: Negative. Genitourinary: Negative. Musculoskeletal: Negative. Skin: Negative. Neurological: Negative. Endo/Heme/Allergies: Negative. Psychiatric/Behavioral: Negative. All other systems reviewed and are negative. PHYSICAL EXAMINATION: Ht 190.5 cm (6' 3 ) Wt (!) 168.5 kg (371 lb 8 oz) BMI 46.43 kg/m?? Pain Score and Location 09/11/21 1356 PainSc: 0-No pain Physical Exam Vitals and nursing note reviewed. Constitutional: General: He is not in acute distress. Appearance: He is not diaphoretic. HENT: Head: Normocephalic and atraumatic. Right Ear: External ear normal. Left Ear: External ear normal. Nose: Nose normal. Mouth/Throat: Pharynx: No oropharyngeal exudate. Eyes: General: Right eye: [...] neck supple. Right lower leg: No edema. Lymphadenopathy: Cervical: No [...] and compared to previous images. I subsequently reviewedwith Dr. Rosangela Perla. Chest/Abdomen/Pelvic CT scan at [facility] performed 09/11/2021 demonstrates post surgical changes of rightlower lobectomy. Stable post radiation changes in right upper lobe. Resolution of several pulmonarynodules at right lung base and others that are stable. No new lung lesions. Right high paratrachealnode stable in size. No new or worsening thoracic lymphadenopathy. No evidence of metastatic disease in abdomen or pelvis. Mild splenomegaly. ASSESSMENT/PLAN: 56 y.o. male with a history [...] reviewed the new report/images with the patient. All questions answered at this time. PLAN: Patient will return to the office in 3 months with a restaging Chest/Abdomen/Pelvic CT scan. No medication changes made at this office visit. RAD ONC PAIN PLAN: The patient is not currently having any pain that requires changes in pain management. DISEASE STATUS: Disease Status: Controlled New metachronous cancer?: No evidence of malignancy Julia Mckenna NP- Radiation Oncology I saw the patient independently and reviewed the images, data, physical exam and plan with Dr. Rosangela Perla. Cosigned by Rosangela Perla MD at 09/21/2021 9:12 PM CDT documented in this encounter Plan [...] it. Electronically signed by: Rosangela Peña M.D. us Julia Neeta Clarisa ORDAINED MINISTER IMG CT PROCEDURES Final R esult documented in this encounter Visit Diagnoses Diagnosis Carcinoid tumor of right lung- Primary Radiotherapy follow-up examination Carcinoid tumor of right lung Radiotherapy follow-up examination documented in this encounter Historical Medications * This list may reflect changes made after this encounter. multivitamin capsule Take 1 capsule by mouth daily added in this encounter Care Teams Lapel Padder Blindstitch Relationship Specialty Start Date End Date Clara Stanley PA [address] [place] [address] PCP - General Nurse Practitioner 04/05/19 Jasper Canchola MD [address] [place] [address] Surgeon Thoracic Surgery 05/11/19 Alexis Lopez MD [address] [address] Calculation Reviewer Pulmonary Disease 05/11/19 Kpi Del Rio MD [address] [facility] [address] [place] [address] Medical Oncologist/Full Fashioned Garment Knitter Hematology and Oncology 05/11/19 Jacob Flynn MD [address] [facility] [address] [place] [address] Radiation Oncologist Radiation Oncology 05/25/19 documented as of this encounter
--- OUTSIDE RECORDS SUMMARY | 2024-03-02 03:43 | XMS_ITS | Encounter Summary ---
Author Organization [facility] Address [address] [place] [address] Care Team Providers Care Pipe Organ Tuner And Repairer Name Role Phone Clara Stanley Primary Care Provider + Jasper Canchola MD Unavailable Alexis Lopez MD Unavailable [phone] Kip Del Rio MD Unavailable Jacob Flynn MD Unavailable Renetta Ballesteros NP Unavailable [phone] Reason for Visit * Reason Onset Date Comments Request For Order(s) 09/19/2022 Encounter Details Date Type Department Care Team (Late st Contact Info) Description 09/19/2022 Telephone [facility] Pulmonology [address] [facility] [address] [place] [address] Evelina Encarnacion MA Request For Order(s) Social History Tobacco Use Types Packs/Day Years [...] on file 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 * Telephone Encounter - Evelina Encarnacion MA - 09/29/2022 3:36 PM CDT Patient's insurance denied Dali[employer], please advise. * Telephone Encounter - Evelina Encarnacion MA - 09/19/2022 12:24 PM CDT PA submitted for [facility] on [facility]. * Telephone Encounter - Evelina Encarnacion MA - 09/19/2022 10:07 AM CDT Faxed order. * Telephone Encounter - Evelina Encarnacion MA - 09/19/2022 9:42 AM CDT ----- Message from Alexis Lopez MD sent at 09/19/2022 9:02 AM CDT ----- Please order a home nebulizer through [facility] Thank you documented in this encounter Plan of Treatment Not on file documented as of this encounter Visit Diagnoses Diagnosis Mild intermittent asthma without complication- Primary documented in this encounter Orders General Supply Count Last Ordered Date First Or dered Date NEBULIZER WITH KIT 1 09/19/2022 documented in this encounter Care Teams Pipe Organ Tuner And Repairer Relationship Specialty Start Date End Date Clara Stanley PA [address] [place] [address] PCP - General Nurse Practitioner 04/05/19 Jasper Canchola MD [address] [place] [address] Surgeon Thoracic Surgery 05/11/19 Alexis Lopez MD [address] [address] Test Case Developer Pulmonary Disease 05/11/19 Kip Del Rio MD [address] [place] [address] Medical Oncologist/Plasma Specialist Hematology and Oncology 05/11/19 Jacob Flynn MD [address] [place] [address] Radiation Oncologist Radiation Oncology 05/25/19 Renetta Ballesteros NP [address] [place] [address] Nurse Practitioner Radiation Oncology 06/11/22 documented as of this encounter
--- OUTSIDE RECORDS SUMMARY | 2024-03-02 03:43 | XMS_ITS | Encounter Summary ---
Author Organization [facility] Address [address] [place] [address] Care Team Providers Care Radio Time Sales Supervisor Name Role Phone Clara Stanley Primary Care Provider + Jasper Canchola MD Unavailable Alexis Lopez MD Unavailable [phone] Kip Del Rio MD Unavailable Jacob Flynn MD Unavailable [phone] Renetta Ballesteros NP Unavailable [phone] Reason for Referral * MRI/CAT/PET Scan (Routine) - Closed Specialty Diagnoses / Procedures Referred By Contac t Referred To Contact Radiology Diagnoses Radiotherapy follow-up examination Primary cancer of right lower lobe of 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) Procedures CT Chest Abdomen Pelvis W Contrast Jacob Flynn MD [address] [facility] [address] [place] [address] Phone: tel: fax: [address] [phone] Referral ID Status Reason Start Date Expiration Date Visits Re quested Visits Authorized [id number] Closed 11/24/2022 12/24/2023 1 1 Reason for Visit * MRI/CAT/PET Scan (Routine) - Closed Specialty Diagnoses / Procedures Referred By Contac t Referred To Contact Radiology Diagnoses Radiotherapy follow-up examination Primary cancer of right lower lobe of 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) Procedures CT Chest Abdomen Pelvis W Contrast Jacob Flynn MD [address] [facility] [address] [place] [address] Phone: tel: fax: [address] [phone] Referral ID Status Reason Start Date Expiration Date Visits Re quested Visits Authorized [id number] Closed 11/24/2022 12/24/2023 1 1 Encounter Details Date Type Department Care Team (Latest Contact Info) Description 12/25/2022 9:19 AM CDT - 12/25/2022 11:59 PM CDT Hospital Encounter [facility] [address] [place] [address] Radiotherapy follow-up examination; Primary cancer of right lower lobe of lung (HCC); Secondary malignant neoplasm of [...] on file 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 Gender Identity Not on file Sexual Orientation [...] mg tabletIndications :Mild intermittent asthma without complication Take 1 tablet (10 mg total) by mouth nightly 30 tablet 11 02/26/2022 4 olopatadine-momet asone (Ryaltris) 665-25 mcg/spray spray,non-aerosol Administer into affected nostril(s) 2 (two) times a day [address] (PROTONIX) 40 mg EC tabletIndications :Cough, persistent Take 1 tablet (40 mg total) by mouth daily 30 tablet 11 02/26/2022 4 pravastatin (PRAVACHOL) 20 mg tabletIndications :hyperlipidemia [...] CONTRAST Schedule Routine, Read Routine (OP Routine) 12/25/2022 10:33 AM CDT Radiotherapy follow-up examination Primary cancer of right lower lobe of 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 ??No evidence of metastatic disease in the chest abdomen or pelvis. Electronically signed by: Roma Montano M.D. Narrative 12/25/2022 11:12 AM CDT EXAMINATION: ??Computed tomography of the chest, abdomen and pelvis with intravenous contrast HISTORY: Right lower lobe neuroendocrine carcinoma TECHNIQUE: ??Transaxial computed tomographic images of the chest, abdomen and pelvis ??were obtained with intravenous contrast according to the standard protocol after the uneventful administration of 99 mL Opti-Ray 350 intravenous contrast. COMPARISON: 09/18/2022 FINDINGS: ?? Chest: There is no supraclavicular or axillar lymphadenopathy. There is a stable 1.6 cm right hilar lymph node and a stable 1 cm right paratracheal lymph node. ??There are post radiation changes including mediastinal thickening and architectural distortion in the right hilar , consistent with radiation therapy to the mediastinum.. The heart is normal in size. ??No pericardial effusion. ??There is mild coronary artery calcification. There are postoperative changes of right lower lobectomy. No new suspicious pulmonary nodule is identified. ??Is a stable 5 mm subpleural right middle lobe pulmonary nodule (-79.2) Abdomen/Pelvis: The liver is normal in size. ??No hepatic lesion is identified. There is no biliary duct dilatation. ??The portal, superior mesenteric, and splenic vein are patent. ??The gallbladder is normal. The spleen, adrenal glands, and pancreas are normal. The kidneys symmetrically enhance. ??There is no hydronephrosis or nephrolithiasis. Bladder is normal. The stomach and duodenum are normal. ??There is chronic diverticulosis without evidence of diverticulitis. ??Pneumoperitoneum. ??No free fluid. Abdominal aorta is normal in course and caliber. ??There is no lymphadenopathy. No suspicious osseous lesion Procedure Note Roma Montano MD - 12/25/2022 EXAMINATION: Computed tomography of the chest, abdomen and pelvis with intravenous contrast HISTORY: Right lower lobe neuroendocrine carcinoma TECHNIQUE: Transaxial computed tomographic images of the chest, abdomen and pelvis were obtained with intravenous contrast according to the standard protocol after the uneventful administration of 99 mL Opti-Ray 350 intravenous contrast. COMPARISON: 09/18/2022 FINDINGS: Chest: There is no supraclavicular or axillar lymphadenopathy. There is a stable 1.6 cm right hilar lymph node and a stable 1 cm right paratracheal lymph node. There are post radiation changes including mediastinal thickening and architectural distortion in the right hilar , consistent with radiation therapy to the mediastinum.. The heart is normal in size. No pericardial effusion. There is mild coronary artery calcification. There are postoperative changes of right lower lobectomy. No new suspicious pulmonary nodule is identified. Is a stable 5 mm subpleural right middle lobe pulmonary nodule (-79.2) Abdomen/Pelvis: The liver is normal in size. No hepatic lesion is identified. There is no biliary duct dilatation. The portal, superior mesenteric, and splenic vein are patent. The gallbladder is normal. The spleen, adrenal glands, and pancreas are normal. The kidneys symmetrically enhance. There is no hydronephrosis or nephrolithiasis. Bladder is normal. The stomach and duodenum are normal. There is chronic diverticulosis without evidence of diverticulitis. Pneumoperitoneum. No free fluid. Abdominal aorta is normal in course and caliber. There is no lymphadenopathy. No suspicious osseous lesion IMPRESSION: Postoperative changes of right lower lobectomy. No evidence of metastatic disease in the chest abdomen or pelvis. Electronically signed by: Roma Montano M.D. Jacob Flynn MD IMG CT PROCEDURES Fin al Result * POCT creatinine (12/25/2022 9:57 AM CDT) Creatinine POC 0.9 0.7 - 1.3 mg/dL Blood 12/25/2022 9:57 AM CDT 12/25/2022 9:57 AM CDT Jacob Flynn MD LAB POCT ORDERABLES - DEVICE Final Result Performing Organization Address City/State/[facility] Co de Phone Number 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 documented in this encounter Administered Medications Inactive Administered Medications - up to 3 most recent administrations Medication Order MAR Action Action Date Dose Rate Site ioversoL (OPTIRAY 350) injection 100 mL 100 mL, intravenous, Once in imaging, contrast, Starting on Priscila 12/25/22 at 1028, For 1 dose Contrast Given 12/25/2022 10:31 AM CDT 89 mL documented in this encounter Orders Medications Ordered That Vikram ht Not Have Been Administered Count Last Ordered Date First Ordered Date ioversoL (OPTIRAY 350) injection 100 mL 1 1 documented in this encounter Care Teams Radio Time Sales Supervisor Relationship Specialty Start Date End Date Clara Stanley PA [address] [place] [address] PCP - General Nurse Practitioner 04/05/19 aJsper Canchola MD [address] [place] [address] Surgeon Thoracic Surgery 05/11/19 Alexis Lopez MD [address] [address] Investigator Pulmonary Disease 05/11/19 Kip Del Rio MD [address] [place] [address] Medical Oncologist/Corporate Event Planner Hematology and Oncology 05/11/19 Jacob Flynn MD [address] [place] [address] Radiation Oncologist Radiation Oncology 05/25/19 Renetta Ballesteros NP [address] [place] [address] Nurse Practitioner Radiation Oncology 06/11/22 documented as of this encounter
--- OUTSIDE RECORDS SUMMARY | 2024-03-02 03:43 | XMS_ITS | Encounter Summary ---
Author Organization [facility] Address [address] [place] [address] Care Team Providers Care Supervisor Spring Up Name Role Phone Clara Stanley Primary Care Provider + Jasper Canchola MD Unavailable Alexis Lopez MD Unavailable [phone] Kip Del Rio MD Unavailable Jacob Flynn MD Unavailable [phone] Reason for Referral * MRI/CAT/PET Scan (Routine) - Closed Specialty Diagnoses / Procedures Referred By Erik galdamez Referred To Contact Radiology Diagnoses Malignant neoplasm of lower lobe of right lung (HCC) Radiotherapy follow-up examination Procedures CT Chest Abdomen Pelvis W Contrast Julia Mckenna NP Phone: tel: fax: [address] [address] Referral ID Status Reason Start Date Expiration Date Visits Re quested Visits Authorized [id number] Closed 03/04/2022 04/03/2023 1 1 UTATOR UNDERCUTTER Reason for Visit * Reason Comments Follow-up Prior CT Encounter Details Date Type Department Care Team (Late st Contact Info) Description 03/04/2022 9:50 AM COMMUTATOR UNDERCUTTER Office Visit [facility] Advanced Medicine Radiation Oncology [address] [place] [address] Julia Mckenna NP [address] 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 Gender Identity Not on file Sexual Orientation [...] - Inhaled Oxygen Concentration - - Weight 165.4 kg (364 lb 9.6 oz) 03/04/2022 9:44 AM COMMUTATOR UNDERCUTTER Height 190.5 cm (6' 3 ) 03/04/2022 9:44 AM COMMUTATOR UNDERCUTTER Body Mass Index 45.57 03/04/2022 9:44 AM COMMUTATOR UNDERCUTTER documented in this encounter Progress Notes * Julia Mckenna NP - 03/04/2022 9:50 AM CST Radiation Oncologist: Jacob Flynn MD Primary Care Physician: Clara Stanley PA Medical Oncologist: Kip Del Rio MD Surgeon: Jasper Canchola MD Referring Physician: No care steam locomotive firer/fireman to display Date of Service: 03/04/2022 RADIATION ONCOLOGY FOLLOW UP NOTE IDENTIFYING DATA: 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 [...] was last seen in radiation oncology on 12/10/2021. He has been seen by pulmonology as well as Cardiology. He states that he is now on 2 new inhalers. Pot Runner is planning to do a stress test. He has a colonoscopy scheduled early in March. Patient is here today for follow up visit and review of restaging images to assess for progression of disease and post radiation toxicity. PAST MEDICAL, SURGICAL, FAMILY, AND SOCIAL HISTORY History Last Reviewed by Julia Mckenna NP on 03/04/2022 at 12:55 PM Sections Reviewed Tobacco, Medical, Surgical, Family, Socioeconomic ALLERGIES: Allergies as of 03/04/2022 Reviewed by Julia Mckenna NP on 03/04/2022 No Known Allergies MEDICATIONS: Review Info User Date and Time JULIA MCKENNA NP [[id number]] 03/04/2022 12:54 PM Review of Systems Constitutional: Negative. HENT: Negative. Eyes: Negative. Respiratory: Positive for shortness of breath. Cardiovascular: Negative. Gastrointestinal: Negative. Genitourinary: Negative. Musculoskeletal: Negative. Skin: Negative. Neurological: Negative. Endo/Heme/Allergies: Negative. Psychiatric/Behavioral: Negative. All other systems reviewed and are negative. PHYSICAL EXAMINATION: Ht 190.5 cm (6' 3 ) Wt (!) 165.4 kg (364 lb 9.6 oz) BMI 45.57 kg/m?? Pain Score and Location 03/04/22 0944 PainSc: 0-No pain Physical Exam Vitals and [...] REPORTS REVIEWED: Imaging: I personally reviewed the lab work and imaging and compared to previous images. I subsequently reviewed with Dr. Jacob Flynn. Chest/Abdomen/Pelvic CT scan with at H performed 03/04/2022 demonstrates stable pulmonary nodules. No new pulmonary nodules. Stable mediastinal lymph nodes. No evidence of distant disease progression or new sites of metastatic disease in the chest abdomen or pelvis. Chem/LFT Lab History Some values may be hidden. Unless noted otherwise, only the newest values recorded on each date aredisplayed. Labs-Chem/LFT 06/07/21 09/11/21 12/10/21 03/04/22 CrCl- Actual Body Weight (Cockcroft-Gault) 278.8 287.5 217.9 246.9 ASSESSMENT/PLAN: 56 y.o. male with a history [...] reviewed the new report/images with the patient. A three-month follow-up with CT imaging recommended. No medication changes made at this office [...] Flynn. Cosigned by Jacob Flynn MD at 03/11/2022 9:59 PM COMMUTATOR UNDERCUTTER UTATOR UNDERCUTTER UTATOR UNDERCUTTER documented in this encounter Plan of Treatment [...] panniculitis. Electronically signed by: Herrera Delarosa MD us Juliacolette Santacruz Clarisa AGRICULTURAL EQUIPMENT SALES MANAGER IMG CT PROCEDURES Final R esult documented in this encounter Visit Diagnoses Diagnosis Malignant neoplasm of lower lobe of right lung (HCC) Radiotherapy follow-up examination Malignant neoplasm of lower lobe of right lung (HCC) Radiotherapy follow-up examination documented in this encounter Historical Medications * This list may reflect changes made after this encounter. fluticasone-umecl idin-vilanter (Trelegy Ellipta) 100-62.5-25 mcg inhaler Inhale 1 puff daily 03/31/2022 added in this encounter Care Teams Supervisor Spring Up Relationship Specialty Start Date End Date Clara Stanley PA [address] [place] [address] PCP - General Nurse Practitioner 04/05/19 Jasper Canchola MD [facility] [place] [address] Surgeon Thoracic Surgery 05/11/19 Alexis Lopez MD [address] [facility] [address] [address] Jewelry Engraver Pulmonary Disease 05/11/19 Kip Del Rio MD [address] [facility] [address] [place] [address] Medical Oncologist/Management Consultant Hematology and Oncology 05/11/19 Jacob Flynn MD [address] [facility] [address] [place] [address] Radiation Oncologist Radiation Oncology 05/25/19 documented as of this encounter
--- OUTSIDE RECORDS SUMMARY | 2024-03-02 03:43 | XMS_ITS | Encounter Summary ---
Author Organization [facility] Address [address] [facility] [place] [address] Care Team Providers Care Recreational Assistant Name Role Phone Clara Stanley Primary Care Provider + Jasper Canchola MD Unavailable Alexis Lopez MD Unavailable [phone] Kip Del Rio MD Unavailable [phone] Jacob Flynn MD Unavailable Renetta Ballesteros NP Unavailable Reason for Visit * Reason Onset Date Comments Medical Question/Miscellaneous 08/29/2022 Encounter Details Date Type Department Care Team (Late st Contact Info) Description 08/29/2022 Telephone [facility] Pulmonology [address] [facility] [address] [place] [address] Evelina Encarnacion MA Medical Question/Miscellaneous [...] on file 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 20 tablet 08/29/2022 09/21/2022 azithromycin (ZITHROMAX) 250 mg tablet Take 2 by mouth today then 1 daily for 4 days 6 tablet 08/29/2022 09/03/2022 documented in this encounter Miscellaneous Notes * Telephone Encounter - Evelina Encarnacion MA - 08/29/2022 9:54 AM CDT Patient informed, sent medications to pharmacy. * Telephone Encounter - Evelina Encarnacion MA - 08/29/2022 9:53 AM CDT ----- Message from Alexis Lopez MD sent at 08/29/2022 9:34 AM CDT ----- Regarding: RE: Cough and Congestion Contact: Please order a Z-Alex and a tapering dose of prednisone starting at 40 mg p.o. q.day for 2 days thendecrease by 10 mg every other day. Thank you! ----- Message ----- From: Evelina Encarnacion MA Sent: 08/29/2022 8:09 AM CDT To: Alexis Lopez MD Subject: FW: Cough and Congestion ----- Message ----- From: Kwaku Kulkarni Sent: 08/29/2022 7:38 AM CDT To: [facility] Subject: Cough and Congestion Good Morning Dr. Lopez, I have had some severe congestion and cough the past few days. Feel alot of crackling noise in my upper chest and throat area. Would you be able to prescribe me some medicine for this? The last time I took a large dose of steroids and it seemed to help. I the [facility] in [place], [place]. as my pharmacy. If you could call in a prescription that would be great. Thank You, Justin Kulkarni documented in this encounter Plan of Treatment Not on file documented as of this encounter Visit Diagnoses Not on filedocumented in this encounter Discontinued Medications Medication Sig Discontinue Reason Start Date End Da te predniSONE (DELTASONE) 50 mg tablet TAKE 1 TABLET BY MOUTH DAILY FOR 5 DAYS 05/11/2022 08/29/2022 documented as of this encounter Care Teams Recreational Assistant Relationship Specialty Start Date End Date Clara Stanley PA [address] [place] [address] PCP - General Nurse Practitioner 04/05/19 Jasper Canchola MD [address] [place] [address] Surgeon Thoracic Surgery 05/11/19 Alexis Lopez MD [address] [facility] [address] [address] Manager It Training Pulmonary Disease 05/11/19 Kip Del Rio MD [address] [facility] [address] [place] [address] Medical Oncologist/Ict Sales Assistant Hematology and Oncology 05/11/19 Jacob Flynn MD [address] [facility] [address] [place], [place] [id number] Radiation Oncologist Radiation Oncology 05/25/19 Renetta Ballesteros NP [address] [facility] [address] [place] [address] Nurse Practitioner Radiation Oncology 06/11/22 documented as of this encounter
--- OUTSIDE RECORDS SUMMARY | 2024-03-02 03:43 | XMS_ITS | Encounter Summary ---
Author Organization [facility] Address [address] [place] [address] Care Team Providers Care Cd Reactor Operator Name Role Phone Clara Stanley Primary [...] Contrast Julia Mckenna NP Phone: tel: fax: [address] [address] Referral ID Status Reason Start Date Expiration Date Visits Re quested Visits Authorized [id number] Closed 09/09/2021 03/08/2022 1 1 Encounter Details Date Type Department Care Team (Late st Contact Info) Description 07/08/2021 Orders Only [facility] Advanced Medicine Radiation Oncology [address] [place] [address] mAelie Lorenzo MA Neuroendocrine carcinoma of lung (CMS/HCC) (HCC) (Primary Dx); Malignant neoplasm of lower [...] on file 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 us Julia Neeta Clarisa COACH CLEANER IMG CT PROCEDURES Final R esult documented in this encounter Visit Diagnoses Diagnosis Neuroendocrine carcinoma of lung (HCC)- Primary Malignant neoplasm of lower lobe of right lung (HCC) Radiotherapy follow-up examination 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) Radiotherapy follow-up examination documented in this encounter Care Teams Cd Reactor Operator Relationship Specialty Start Date End Date Clara Stanley PA [address] [place] [address] PCP - General Nurse Practitioner 04/05/19 Jasper Canchola MD [address] [place] [address] Surgeon Thoracic Surgery 05/11/19 Alexis Lopez MD [address] [address] Cooker Casing Pulmonary Disease 05/11/19 Kip Del Rio MD [address] [facility] [address] [place], [place] [id number] Medical Oncologist/Power Shovel Operator Helper Hematology and Oncology 05/11/19 Jacob Flynn MD [address] [facility] [address] [place] [address] Radiation Oncologist Radiation Oncology 05/25/19 documented as of this encounter
--- OUTSIDE RECORDS SUMMARY | 2024-03-02 03:43 | XMS_ITS | Encounter Summary ---
Author Organization [facility] Address [address] [place] [address] Care Team Providers Care Application Services Manager Name Role Phone Clara Stanley Primary Care Provider + Jasper Canchola MD Unavailable Alexis Lopez MD Unavailable [phone] Kip Del Rio MD Unavailable [phone] Jacob Flynn MD Unavailable Reason for Visit * Reason Onset Date Comments Med Refill 02/10/2022 Encounter Details Date Type Department Care Team (Late st Contact Info) Description 02/10/2022 Telephone [facility] Pulmonology [address] [facility] [address] [place] [address] Alexis Lopez MD [address] [facility] [address] [place] [address] Med Refill Social History Tobacco Use Types Packs/Day Years [...] on file Legal Sex Male 1:17 AM RUG SIZER Gender Identity Not on file Sexual Orientation Straight 09/22/2019 8: 21 PM CDT 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 Do not swallow. 10.2 g 02/10/2022 03/31/2022 documented in this encounter Miscellaneous Notes * Telephone Encounter - Evelina Encarnacion MA - 02/10/2022 9:43 AM RUG SIZER Verified medication and sent to pharmacy Last appt: 02/01/21 Follow up: 02/26/22 SIZER * Telephone Encounter - Brielle Knox - 02/10/2022 9:14 AM CST Patient called asking for a refill on Symbicort inhaler to be sent to [facility] in [address] He was denied previously not having an appointment but he just scheduled one for 2 weeks from now. SIZER documented in this encounter Plan of Treatment Not on file documented as of this encounter Visit Diagnoses Not on filedocumented in this encounter Discontinued Medications Medication Sig Discontinue Reason Start Date End Da te LORazepam (ATIVAN) 0.5 mg tabletIndications:anxiet y Take 0.5 mg by mouth every 6 (six) hours as needed for anxiety 02/10/2022 Symbicort 160-4.5 mcg/actuation inhaler INHALE 2 PUFFS BY MOUTH TWICE DAILY. RINSE MOUTH WITH WATER AFTER USE. DO NOT SWALLOW Reorder 09/12/2021 02/10/2022 documented as of this encounter Care Teams Application Services Manager Relationship Specialty Start Date End Date Clara Stanley PA [address] [place] [address] PCP - General Nurse Practitioner 04/05/19 Jaspre Canchola MD [address] [place] [address] Surgeon Thoracic Surgery 05/11/19 Alexis Lopez MD [address] [address] Hand Router Operator Pulmonary Disease 05/11/19 Kip Del Rio MD [address] [place] [address] Medical Oncologist/Java Developer Hematology and Oncology 05/11/19 Jacob Flynn MD [address] [place], [place] [id number] Radiation Oncologist Radiation Oncology 05/25/19 documented as of this encounter
--- OUTSIDE RECORDS SUMMARY | 2024-03-02 03:43 | XMS_ITS | Encounter Summary ---
Author Organization [facility] Address [address] [facility] [address] [place] [address] Care Team Providers Care Tire Curer Name Role Phone Clara Stanley Primary Care Provider + Jasper Canchola MD Unavailable Alexis Lopez MD Unavailable [phone] Kip Del Rio MD Unavailable Jacob Flynn MD Unavailable [phone] Renetta Ballesteros NP Unavailable [phone] Reason for Visit * Reason Comments Follow-up Encounter Details Date Type Department Care Team (Late st Contact Info) Description 08/08/2022 9:45 AM CDT Office Visit [facility] Pulmonology [address] [facility] [address] [place] [address] Trinity Encarnacion NP [address] [facility] [address] [place] [address] Solitary pulmonary nodule (Primary Dx); LEONOR (obstructive sleep apnea); Allergy, initial encounter; Mild intermittent asthma without complication Social History Tobacco Use Types Packs/Day Years [...] file 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 Gender Identity Not on file Sexual Orientation Straight 09/22/2019 8: 21 PM CDT 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 on file Not on file documented as of this encounter Last Filed Vital Signs Vital Sign Reading Time Taken Comments Blood Pressure 153/89 08/08/2022 9:34 AM CDT Pulse 69 08/08/2022 9:34 AM CDT Temperature 36.2 ??C (97.1 ??F) 08/08/2022 9:34 AM CD T Respiratory Rate 18 08/08/2022 9:34 AM CDT Oxygen Saturation 96% 08/08/2022 9:34 AM CDT Inhaled Oxygen Concentration - - Weight 163.2 kg (359 lb 12.8 oz) 08/08/2022 9:34 AM CDT Height 190.5 cm (6' 3 ) 08/08/2022 9:34 AM CDT Body Mass Index 44.97 08/08/2022 9:34 AM CDT documented in this encounter Ordered Prescriptions Prescription Sig Dispense Quantity Refills Last Filled Start Date End Date fluticasone-umecli din-vilanter (Trelegy Ellipta) 100-62.5-25 mcg inhalerIndications :Bronchospasm Prevention with COPD Inhale 1 puff daily 60 each 11 08/08/2022 08/28/2023 documented in this encounter Progress Notes * Trinity Encarnacion NP - 08/08/2022 9:45 AM CDT Images from the original note were not included. Patient ID: Kwaku Kulkarni is a 57 y.o. male. HPI. Patient is a 57 y.o. male returns for follow-up of cough, LEONOR, asthma and history of lung cancer. The patient states the Trelegy has helped his cough significantly. The patient continues with Singulair, Protonix, Cherelle, and Flonase. The patient states that he is not heard from the bakery machine mechanic supervisor.The patient states he feels like his breathing has significantly improved. The patient states that he is trying to diet and lose weight. Chief Complaint Patient presents with Follow-up Current Medications: Outpatient Encounter Medications as of 08/08/2022 Medication Sig Dispense Refill albuterol HFA (PROVENTIL [...] sprays into each nostrildaily 16 g 6 montelukast (SINGULAIR) 10 mg tablet Take 1 [...] (20 mg total) by mouth every morning [DISCONTINUED] dkgiuibjtkr-hhtdawigx-rnutlvkx (Trelegy Ellipta) 100-62.5-25 mcg inhaler Inhale 1 puff daily 60 each 3 benzonatate (TESSALON) 200 mg capsule TAKE 1 CAPSULE BY MOUTH THREE TIMES DAILY NEEDED FOR COUGH(Patient not taking: Reported on 06/11/2022) zclzaxmkxqq-btrslhcln-rqhoijsv (Trelegy Ellipta) 100-62.5-25 mcg inhaler Inhale 1 puff daily 60 each 11 predniSONE (DELTASONE) 50 mg tablet TAKE 1 TABLET BY MOUTH DAILY FOR 5 DAYS (Patient not taking: Reported on 08/08/2022) No facility-administered encounter medications on file as of 08/08/2022. Review of Systems Constitutional: Negative for fever. HENT: Negative for tinnitus. Eyes: Negative for visual disturbance. Respiratory: Negative for cough, shortness of breath and wheezing. Cardiovascular: Negative for chest pain. Gastrointestinal: Negative for diarrhea, nausea and vomiting. Skin: Negative for rash. Neurological: Negative for dizziness. BP 153/89 (BP Location: Right arm, Patient Position: Sitting) Pulse 69 Temp 36.2 ??C (97.1 ??F)(Tympanic) Resp 18 Ht 190.5 cm (6' 3 ) Wt (!) 163.2 kg (359 lb 12.8 oz) SpO2 96% BMI 44.97 kg/m?? Physical Exam Constitutional: General: He is [...] Diagnoses and all orders for this visit: Solitary pulmonary nodule (Primary) Assessment & Plan: Continues to follow with oncology and CT scanning. LEONOR (obstructive sleep apnea) Assessment & Plan: Patient will continue with positional therapy. I did encourage the patient to resume CPAP therapy at an auto titrating range of 5-20 cm water pressure. Allergy, initial encounter Assessment & Plan: The patient has not heard from the bakery machine mechanic supervisor. I did send a message to our office staff to follow-up. Mild intermittent asthma without complication Assessment & Plan: Patient continue to use Trelegy one inhalation once a day. Patient continue to use his albuterol asneeded up to 4 times a day for shortness of breath. Patient continue with Singulair, Protonix, Cherelle, and Flonase. Other orders - blarkwhuaio-vbwmjsmdn-hxmsytkm (Trelegy Ellipta) 100-62.5-25 mcg inhaler; Inhale 1 puff daily Return in about 6 months (around 02/08/2023). Trinity Encarnacion NP Cosigned by Alexis Lopez MD at 08/08/2022 10:23 AM CDT documented in this encounter Miscellaneous Notes * Assessment & Plan Note - Trinity Encarnacion NP - 08/08/2022 10:00 AM CDT Associated Problem(s): Mild intermittent asthma without complication Patient continue to use Trelegy one inhalation once a day. Patient continue to use his albuterol asneeded up to 4 times a day for shortness of breath. Patient continue with Singulair, Protonix, Cherelle, and Flonase. * Assessment & Plan Note - Trinity Encarnacion NP - 08/08/2022 9:59 AM CDT Associated Problem(s): Allergies The patient has not heard from the bakery machine mechanic supervisor. I did send a message to our office staff to follow-up. * Assessment & Plan Note - Trinity Encarnacion NP - 08/08/2022 9:59 AM CDT Associated Problem(s): LEONOR (obstructive sleep apnea) Patient will continue with positional therapy. I did encourage the patient to resume CPAP therapy at an auto titrating range of 5-20 cm water pressure. * Assessment & Plan Note - Trinity Encarnacion NP - 08/08/2022 9:58 AM CDT Associated Problem(s): Solitary pulmonary nodule (Deleted) Continues to follow with oncology and CT scanning. documented in this encounter Plan of Treatment Not on file documented as of this encounter Visit Diagnoses Diagnosis Solitary pulmonary nodule- Primary LEONOR (obstructive sleep apnea) Obstructive sleep apnea (adult) (pediatric) Allergy, initial encounter Mild intermittent asthma without complication documented in this encounter Discontinued Medications Medication Sig Discontinue Reason Start Date End Da te nsdctsntlar-fsbrcdabj-uu lanter (Trelegy Ellipta) 100-62.5-25 mcg inhaler Inhale 1 puff daily Reorder 03/31/202207/15 documented as of this encounter Care Teams Tire Curer Relationship Specialty Start Date End Date Clara Stanley PA [address] [place] [address] PCP - General Nurse Practitioner 04/05/19 Jasper Canchola MD [address] [place] [address] Surgeon Thoracic Surgery 05/11/19 Alexis Lopez MD [address] [address] Medical Receptionist Medical Assistant Pulmonary Disease 05/11/19 Kip Del Rio MD [address] [place] [address] Medical Oncologist/Tool Trouble Shooter Hematology and Oncology 05/11/19 Jacob Flynn MD [address] [place] [address] Radiation Oncologist Radiation Oncology 05/25/19 Renetta Ballesteros NP [address] [place] [address] Nurse Practitioner Radiation Oncology 06/11/22 documented as of this encounter
--- OUTSIDE RECORDS SUMMARY | 2024-03-02 03:43 | XMS_ITS | Encounter Summary ---
Author Organization [facility] Address [address] [facility] [address] [place] [address] Care Team Providers Care License And Permit Specialist Name Role Phone Clara Stanley Primary Care Provider + Jasper Canchola MD Unavailable Alexis Lopez MD Unavailable [phone] Kip Del Rio MD Unavailable [phone] Jacob Flynn MD Unavailable Reason for Visit * Reason Onset Date Comments Medical Question/Miscellaneous 05/02/2022 Encounter Details Date Type Department Care Team (Late st Contact Info) Description 05/02/2022 Telephone [facility] Pulmonology [address] [facility] [address] [place] [address] Evelina Encarnacion MA Medical Question/Miscellaneous [...] on file 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 Gender Identity Not on file Sexual Orientation Straight 09/22/2019 8: 21 PM CDT 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 R INSPECTOR * Telephone Encounter - Evelina Encarnacion MA - 05/02/2022 11:13 AM CIGAR INSPECTOR ----- Message from Alexis Lopez MD sent at 05/02/2022 10:50 AM CIGAR INSPECTOR ----- Regarding: RE: Cough and Cold Contact: Okay for a Z-Alex and Medrol Dosepak ----- Message ----- From: Evelina Encarnacion MA Sent: 05/02/2022 9:56 AM CIGAR INSPECTOR To: Alexis Lopez MD Subject: FW: Cough and Cold ----- Message ----- From: Kwaku Kulkarni Sent: 05/02/2022 8:54 AM CIGAR INSPECTOR To: Bjg Jarek [facility] Clinical Subject: Cough and Cold Good Morning Dr. Lopez, I have been battling a cough and cold over the past couple weeks and it doesn't seem to be getting any better. Would it be possible for you to call in a prescription to [facility] in [place] for me? I just have constant drainage in my nose and throat and when I breathe in you can hear noise from mucus or something in my upper chest area. Thank You, Justin Kulkarni R INSPECTOR documented in this encounter Plan of Treatment Not on file documented as of this encounter Visit Diagnoses Not on filedocumented in this encounter Care Teams License And Permit Specialist Relationship Specialty Start Date End Date Clara Stanley PA [address] [place] [address] PCP - General Nurse Practitioner 04/05/19 Jasper Canchola MD [address] [place] [address] Surgeon Thoracic Surgery 05/11/19 Alexis Lopez MD [address] [address] Side Hemmer Pulmonary Disease 05/11/19 Kip Del Rio MD [address] [facility] [address] [place] [address] Medical Oncologist/Cloth Cutting Machine Operator Hematology and Oncology 05/11/19 Jacob Flynn MD [address] [facility] [address] [place] [address] Radiation Oncologist Radiation Oncology 05/25/19 documented as of this encounter
--- OUTSIDE RECORDS SUMMARY | 2024-03-02 03:43 | XMS_ITS | Encounter Summary ---
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) Procedures CT Chest Abdomen Pelvis W Contrast Julia Mckenna NP Phone: tel: fax: [address] [phone] Referral ID Status Reason Start Date Expiration Date Visits Re quested Visits Authorized [id number] Closed 06/06/2021 07/06/2022 1 1 Reason for Visit * MRI/CAT/PET Scan (Routine) - Closed Specialty Diagnoses / Procedures Referred By Erik galdamez Referred To Contact Radiology Diagnoses 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) Procedures CT Chest Abdomen Pelvis W Contrast Julia Mckenna NP Phone: tel: fax: [address] [phone] Referral ID Status Reason Start Date Expiration Date Visits Re quested Visits Authorized [id number] Closed 06/06/2021 07/06/2022 1 1 Encounter Details Date Type Department Care Team (Latest Contact Info) Description 06/07/2021 9:28 AM CDT - 06/07/2021 11:59 PM CDT Hospital Encounter [facility] ([facility]) [facility] [place] [address] Julia Mckenna NP [address] [facility] [address] [place] [address] Neuroendocrine carcinoma of lung (CMS/HCC) (HCC); Malignant neoplasm of lower lobe of right lung (CMS/HCC) (HCC); Secondary malignant neoplasm of mediastinal lymph [...] on file 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 Gender Identity Not on file Sexual Orientation [...] 1 capsule (50,000 Units total) by mouth budesonide-formot Ellen (SYMBICORT) 160-4.5 mcg/actuation inhaler Inhale [...] CONTRAST Schedule Routine, Read Routine (OP Routine) 06/07/2021 10:44 AM CDT Neuroendocrine carcinoma of lung (CMS/HCC) (HCC) Malignant neoplasm of lower lobe of right lung (CMS/HCC) (HCC) 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 findings compatible with radiation-induced inflammation within the right upper lobe and decreased size of paratracheal lymph node. No new evidence of metastatic disease. 2. Unchanged tiny pulmonary nodules. Electronically signed by: Doni Argueta M.D. Narrative 06/07/2021 11:10 AM CDT EXAMINATION: CT CHEST ABDOMEN PELVIS W CONTRAST HISTORY: Metastatic pulmonary nodule can carcinoma status post right lower lobectomy and mediastinal lymph node dissection. Progression of disease in the thorax. Completed palliative radiation. Restaging.. TECHNIQUE: ??Transaxial computed tomographic images of the chest abdomen pelvis ??were obtained with intravenous contrast according to the standard protocol after the uneventful administration of 120 mL Opti-Ray 350 intravenous contrast. COMPARISON: DOTATATE PET/CT 01/08/2021. FINDINGS: ?? There is new right upper lobe groundglass that is likely related to radiation therapy. Postoperative changes of right lower lobectomy with stable right hemidiaphragm elevation and right-sided pleural thickening and trace right sided pleural effusion are again noted. No pneumothorax. There are persistent pulmonary nodules seen within the right lung that are unchanged. For reference, right upper lobe nodule measures 4 mm (image 70) and 5 mm (image 79). No new pulmonary nodules. There is no axillary or supraclavicular adenopathy. Redemonstrated is a right paratracheal lymph node that has decreased in size measuring 13 x 12 mm (image 26), previously 16 x 13 mm. There is an unchanged right hilar lymph node measuring 15 x 16 mm (image 59). Heart size normal. There is no pericardial effusion. No focal liver lesions. No intrahepatic or extra hepatic biliary duct dilatation. The gallbladder, spleen, adrenal glands pancreas and kidneys are normal. Small bowel and colon are normal in caliber without evidence of wall thickening or obstruction. There is diverticulosis without evidence diverticulitis. No inguinal, pelvic mesenteric or retroperitoneal adenopathy. No intraperitoneal free air or fluid. Bladder is normal. Prostate is present. Bone windows demonstrate no suspicious lytic or blastic lesions. Procedure Note Doni Argueta MD PhD - 06/07/2021 EXAMINATION: CT CHEST ABDOMEN PELVIS W CONTRAST HISTORY: Metastatic pulmonary nodule can carcinoma status post right lower lobectomy and mediastinal lymph node dissection. Progression of disease in the thorax. Completed palliative radiation. Restaging.. TECHNIQUE: Transaxial computed tomographic images of the chest abdomen pelvis were obtained with intravenous contrast according to the standard protocol after the uneventful administration of 120 mL Opti-Ray 350 intravenous contrast. COMPARISON: DOTATATE PET/CT 01/08/2021. FINDINGS: There is new right upper lobe groundglass that is likely related to radiation therapy. Postoperative changes of right lower lobectomy with stable right hemidiaphragm elevation and right-sided pleural thickening and trace right sided pleural effusion are again noted. No pneumothorax. There are persistent pulmonary nodules seen within the right lung that are unchanged. For reference, right upper lobe nodule measures 4 mm (image 70) and 5 mm (image 79). No new pulmonary nodules. There is no axillary or supraclavicular adenopathy. Redemonstrated is a right paratracheal lymph node that has decreased in size measuring 13 x 12 mm (image 26), previously 16 x 13 mm. There is an unchanged right hilar lymph node measuring 15 x 16 mm (image 59). Heart size normal. There is no pericardial effusion. No focal liver lesions. No intrahepatic or extra hepatic biliary duct dilatation. The gallbladder, spleen, adrenal glands pancreas and kidneys are normal. Small bowel and colon are normal in caliber without evidence of wall thickening or obstruction. There is diverticulosis without evidence diverticulitis. No inguinal, pelvic mesenteric or retroperitoneal adenopathy. No intraperitoneal free air or fluid. Bladder is normal. Prostate is present. Bone windows demonstrate no suspicious lytic or blastic lesions. IMPRESSION: 1. CT findings compatible with radiation-induced inflammation within the right upper lobe and decreased size of paratracheal lymph node. No new evidence of metastatic disease. 2. Unchanged tiny pulmonary nodules. Electronically signed by: Doni Argueta M.D. us Julia Mckenna NP IMG CT PROCEDURES Final R esult * POCT creatinine (06/07/2021 10:18 AM CDT) Creatinine POC 0.7 0.7 - 1.3 mg/dL [facility] Blood 06/07/2021 10:1 8 AM CDT 06/07/2021 10:18 AM CDT us Julia Mckenna SUPERSONIC ENGINEER LAB POCT ORDERABLES - DEV ICE Final Result [facility] Department [place] [address] documented in this encounter Visit Diagnoses Diagnosis [...] intravenous, Once in imaging, contrast, Starting on Thu06/07/21 at 1025, For 1 dose Contrast Given 06/07/2021 10:45 AM CDT 120 mL documented in this encounter Orders Medications Ordered That Vikram ht Not Have Been Administered Count Last Ordered Date First Ordered Date ioversoL (OPTIRAY 350) syrin ge syringe 125 mL 1 06/07/2021 documented in this encounter Care Teams Radial Drill Operator For Plastic Relationship Specialty Start Date End Date Clara Stanley PA [address] [place] [address] PCP - General Nurse Practitioner 04/05/19 Jasper Canchola MD [address] [place] [address] Surgeon Thoracic Surgery 05/11/19 Alexis Lopez MD [address] [address] Petroleum Refinery Laborer Pulmonary Disease 05/11/19 Kip Del Rio MD [address] [place] [address] Medical Oncologist/Cotton Stomper Hematology and Oncology 05/11/19 [place] [address] [place] [address] [address] [place] [address] Radiation Oncologist Radiation Oncology 05/25/19 documented as of this encounter
--- OUTSIDE RECORDS SUMMARY | 2024-03-02 03:43 | XMS_ITS | Encounter Summary ---
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 Gender Identity Not on file Sexual Orientation Straight 09/22/2019 8: 21 PM CDT 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 on file Not on file documented as of this encounter Plan of Treatment Not on file documented as of this encounter Procedures Procedure Name Priority Date/Time Associated Diagnosis Comments IGE Routine 06/06/2022 10:01 AM CDT Mild intermittent asthma without complication documented in this encounter Results * IgE (06/06/2022 10:01 AM CDT) IgE 26.2 1.0 - 100.0 IUnits/mL [facility] Blood 06/06/2022 10:0 1 AM CDT 06/06/2022 10:35 AM CDT Shyla Shafer DIRECT SERVICE PROVIDER LAB BLOOD ORDERABLES Final Result [facility] [address] [facility] Department [place] [address] documented in this encounter Visit Diagnoses Diagnosis Mild intermittent asthma without complication documented in this encounter Care Teams Branch Associate Teller Relationship Specialty Start Date End Date Clara Stanley PA [address] [place] [id number] PCP - General Nurse Practitioner 04/05/19 Jasper Canchola MD [address] [place] [address] Surgeon Thoracic Surgery 05/11/19 Alexis Lopez MD [address] [address] Painter Apprentice Pulmonary Disease 05/11/19 Kip Del Rio MD [address] [facility] [address] [place] [address] Medical Oncologist/Portable Trackman Hematology and Oncology 05/11/19 Jacob Flynn MD [address] [facility] [address] [place] [address] Radiation Oncologist Radiation Oncology 05/25/19 documented as of this encounter
--- OUTSIDE RECORDS SUMMARY | 2024-03-02 03:43 | XMS_ITS | Encounter Summary ---
Author Organization [facility] Address [address] [place] [address] Care Team Providers Care Shed Workers Supervisor Name Role Phone Clara Stanley Primary Care Provider + Jasper Canchola MD Unavailable Alexis Lopez MD Unavailable [phone] Kip Del Rio MD Unavailable Jacob Flynn MD Unavailable Reason for Referral * Procedure (Routine) - Closed Specialty Diagnoses / Procedures Referred By Erik galdamez Referred To Contact Diagnoses Mild intermittent asthma without complication Procedures Pulmonary Function Test -[facility]; Full PFT in PFT Lab Shyla Shafer NP [address] [facility] [address] [place] [address] Phone: tel: fax: Referral ID Status Reason Start Date Expiration Date Visits Re quested Visits Authorized [id number] Closed 02/26/2022 03/28/2023 1 1 ER ERECTOR Reason for Visit * Procedure (Routine) - Closed Specialty Diagnoses / Procedures Referred By Erik galdamez Referred To Contact Diagnoses Mild intermittent asthma without complication Procedures Pulmonary Function Test -[facility]; Full PFT in PFT Lab Shyla Shafer NP [address] [facility] [address] [place] [address] Phone: tel: fax: Referral ID Status Reason Start Date Expiration Date Visits Re quested Visits Authorized [id number] Closed 02/26/2022 03/28/2023 1 1 Encounter Details Date Type Department Care Team (Latest Contact Info) Description 04/18/2022 7:55 AM BOILER ERECTOR - 04/18/2022 11:59 PM BOILER ERECTOR Hospital Encounter [facility] Respiratory [address] [place] [address] Mild intermittent asthma without complication Discharge Disposition: Discharge to home or self [...] on file Legal Sex Male 1:17 AM BOILER ERECTOR Gender Identity Not on file Sexual Orientation [...] Fill per patient's formulary 1 each 11 02/26/2022 4 fluticasone-umecli din-vilanter (Trelegy Ellipta) 100-62.5-25 mcg inhaler Inhale 1 puff daily 60 each 3 03/31/2022 3 montelukast (SINGULAIR) 10 mg tabletIndications: Mild intermittent asthma without complication Take 1 tablet (10 mg total) by mouth nightly 30 tablet 11 02/26/[address] (PROTONIX) 40 mg EC tabletIndications: Cough, persistent Take 1 tablet (40 mg total) by mouth daily 30 tablet 11 02/26/2022 4 pravastatin (PRAVACHOL) 20 mg tabletIndications: hyperlipidemia Take 1 tablet (20 mg total) by mouth every morning 04/10/2019 4 documented as of this encounter Discharge Disposition Disposition Code Departure Means Destination Discharge to home or self care documented in this encounter Plan of Treatment Not on file documented as of this encounter Procedures Procedure Name Priority Date/Time Associated Diagnosis Comments PULMONARY FUNCTION TEST (PFT) Routine 04/18/2022 8:51 AM BOILER ERECTOR Mild intermittent asthma without complication documented in this encounter Results * Pulmonary Function Test - (04/18/2022 8:51 AM BOILER ERECTOR) FVC POST 3.69 L 04/18/2022 8:50 AM BOILER ERECTOR [facility] FVC PRE 3.73 L 04/18/2022 8:50 AM [facility] FEV1 POST 2.85 L 04/18/2022 8:50 AM [facility] FEV1 PRE 2.85 L 04/18/2022 8:50 AM [facility] [id number] 77.28 % 04/18/2022 8:50 AM BOILER ERECTOR [facility] [id number] 76.56 % 04/18/2022 8:50 AM BOILER ERECTOR [facility] RGG61-86% POST 2.56 L/s 04/18/2022 8:50 AM [facility] AQY81-05% PRE 2.41 L/s 04/18/2022 8:50 AM [facility] PEF POST 6.65 L/s 04/18/2022 8:50 AM [facility] PEF PRE 6.06 L/s 04/18/2022 8:50 AM [facility] FET 100% POST 9.44 sec 04/18/2022 8:50 AM [facility] FET 100% PRE 8.58 sec 04/18/2022 8:50 AM [facility] FIVC POST 3.32 L 04/18/2022 8:50 AM [facility] FIVC PRE 3.35 L 04/18/2022 8:50 AM [facility] FIF50% POST 4.18 L/s 04/18/2022 8:50 AM [facility] FIF50% PRE 4.49 L/s 04/18/2022 8:50 AM [facility] VC PRE 3.81 L 04/18/2022 8:50 AM [facility] TLC PRE 5.46 L 04/18/2022 8:50 AM [facility] RV PRE 1.66 L 04/18/2022 8:50 AM [facility] FRC PL PRE 2.96 L 04/18/2022 8:50 AM [facility] ERV PRE 1.31 L 04/18/2022 8:50 AM [facility] IC PRE 2.46 L 04/18/2022 8:50 AM [facility] RAW PRE 3.38 cmH2O*s/L 04/18/2022 8:50 AM [facility] BF RES 32.05 BPM 04/18/2022 8:50 AM [facility] VTG RAW 3.14 L 04/18/2022 8:50 AM [facility] VTG 3.14 L 04/18/2022 8:50 AM [facility] DLCOc SB 27.30 ml/(min*mm Hg) 04/18/2022 8:50 AM BOILER ERECTOR [facility] DLCOc SB 27.30 ml/(min*mm Hg) 04/18/2022 8:50 AM [facility] VA 4.75 L 04/18/2022 8:50 AM [facility] DLCO/VA PRE 5.75 ml/(min*mm Hg*L) 04/18/2022 8:50 AM [facility] DLCOc SB 5.75 ml/(min*mm Hg*L) 04/18/2022 8:50 AM [facility] Anatomical Region Laterality Modality PFT 04/18/2022 8:00 AM BOILER ERECTOR Narrative 04/18/2022 11:55 AM [facility] Impression: Normal spirometry without any evidence of obstruction or change post bronchodilator therapy. Lung volumes demonstrate moderate restrictive ventilatory impairment, likely contributed by elevated BMI. DLCO is normal without any evidence of diffusion impairment. Electronically signed by Blair Cooley MD, [facility] Pulmonary and Critical Care Medicine [facility] Shyla Shafer FIBERGLASS PIPE COVERING SUPERVISOR PFT ORDERABLES Final Resul t documented in this encounter Visit Diagnoses Diagnosis Mild intermittent asthma without complication documented in this encounter Care Teams Shed Workers Supervisor Relationship Specialty Start Date End Date Clara Stanley PA [address] [place] [address] PCP - General Nurse Practitioner 04/05/19 Jasper Canchola MD [address] [place] [address] Surgeon Thoracic Surgery 05/11/19 Alexis Lopez MD [address] [facility] [address] [place] [address] Clothing Worker Pulmonary Disease 05/11/19 [place] [address] [place] [address] [place] [address] Medical Oncologist/Alteration Worker Hematology and Oncology 05/11/19 Jacob Flynn MD [address] [facility] [address] [place] [address] Radiation Oncologist Radiation Oncology 05/25/19 documented as of this encounter
--- OUTSIDE RECORDS SUMMARY | 2024-03-02 03:43 | XMS_ITS | Encounter Summary ---
Author Organization [facility] Address [address] [place] [address] Care Team Providers Care Transfusion Nurse Name Role Phone Clara Stanley Primary Care Provider + Jasper Canchola MD Unavailable Alexis Lopez MD Unavailable Kip Del Rio MD Unavailable Jacob Flynn MD Unavailable Renetta Ballesteros NP Unavailable Reason for Visit * Reason Comments Follow-up Prior CT Encounter Details Date Type Department Care Team (Late st Contact Info) Description 09/18/2022 11:00 AM CDT Office Visit [facility] Radiation Oncology [facility] [place] [address] Jacob Flynn MD [address] [facility] [address] [place] [address] Primary cancer of right lower lobe of lung (HCC) [C34.31 (ICD-10-CM)] (Primary Dx); Malignant neoplasm of lower lobe of right lung (HCC) [C34.31 (ICD-10-CM)] Social History Tobacco Use Types Packs/Day Years [...] on file Legal 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 Gender Identity Not on file Sexual Orientation [...] - Inhaled Oxygen Concentration - - Weight 158.5 kg (349 lb 6.4 oz) 023 11:03 AM CDT Height 190.5 cm (6' 3 ) 09/18/2022 11:0 3 AM CDT Body Mass Index 43.67 09/18/2022 11:03 AM CDT documented in this encounter Progress Notes * Harry Hobson MD - 09/18/2022 11:00 AM CDT Radiation Oncologist: Jacob Flynn MD Primary Care Physician: Clara Stanley PA Medical Oncologist: Kip Del Rio MD Surgeon: Jasper Canchola MD Referring Physician: Kip Del Rio MD Date of Service: 09/18/2022 RADIATION ONCOLOGY FOLLOW UP NOTE IDENTIFYING DATA: 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 Last seen in Radiation Oncology on 06/11/22. Today he is doing well. He does report a recent illness from which he has a persistent cough and some mild shortness of breath but he is in recovery. He denies hemoptysis or fevers, chills, or night sweats. His energy level and appetite are fair. His most recent CT chest abdomen pelvis demonstrates changes of right lower lobectomy and right mediastinal radiation but no evidence of new or progressive disease. PAST MEDICAL, SURGICAL, FAMILY, AND SOCIAL HISTORY History Last Reviewed by Tita Encarnacion NP on 08/08/2022 at 9:57 AM Sections Reviewed Medical, Surgical, Family, Tobacco, Socioeconomic ALLERGIES: Allergies as of 09/18/2022 Reviewed by Shelby Turner RN on 09/18/2022 No Known Allergies MEDICATIONS: Review Info User Date and Time TITA ENCARNACION NP [[id number]] 08/08/2022 9:57 AM A complete review of 10 systems was completed and negative unless noted above in history of presentillness or intake questionnaire. PHYSICAL EXAMINATION: Ht 190.5 cm (6' 3 ) Wt (!) 158.5 kg (349 lb 6.4 oz) BMI 43.67 kg/m?? Pain Score and Location 09/18/22 1103 PainSc: 0-No pain General: Comfortable appearing male in no apparent distress. HEENT: EOMI. Facial symmetry. Visual field is grossly intact. NECK: No cervical or supraclavicular nodes palpable. Neck full range of motion. Lungs: Clear breath sounds on room air. Heart: Regular rate and rhythm. Abdomen/Back: Soft, nontender, nondistended. No bony point TTP along spine. No CVAT bilaterally. Extremities: Warm and dry. No cyanosis, clubbing or edema. Neurologic Exam: Alert and Oriented x3. CN II-XII intact. Nvgapm-nu-eocb exam did not show any dysmetria. Sensation is intact to touch. Strength equal bilaterally. Gait intact and non-antalgic. The Karnofsky performance scale today is 90 . DIAGNOSTIC REPORTS REVIEWED: Imaging: I personally reviewed the CT imaging and compared to previous images. Chem/LFT Lab History 12/10/2021 11:57 03/04/2022 09:05 06/11/2022 10:26 09/18/2022 10:33 Labs-Chem/LFT CrCl- Actual Body Weight (Cockcroft-Gault) 217.9 246.9 242.1 267.3 ASSESSMENT/PLAN: male with a history of metastatic [...] 60 Gy in 15 fx on 02/21/2021. He is clinically doing well without evidence of disease recurrence. All questions answered at this time. PLAN: Patient will return to the office in 3 months with a restaging Chest/Abdomen/Pelvic CT scan. RAD ONC PAIN PLAN: The patient is not currently having any pain that requires changes in pain management. Harry Hobson MD Resident Physician Department of Radiation Oncology Cosigned by Jacob Flynn MD at 09/21/2022 2:55 PM CDT Associated attestation - Jacob Flynn MD - 09/21/2022 2:55 PM CDT I have seen and examined the patient. I agree with the findings and plan of care as documented in the resident/fellow's note. My total encounter time on 09/18/2022 was 27 minutes which was spent in theactivities documented in the note. This includes time spent prior to the visit and after the visit in direct care of the patient. This time does not include time spent in any separately reportable services. documented in this encounter Plan of Treatment Not on file documented as of this encounter Visit Diagnoses Diagnosis Primary cancer of right lower lobe of lung (HCC) [C34.31 (ICD-10-CM)]- Primary Malignant neoplasm of lower lobe of right lung (HCC) [C34.31 (ICD-10-CM)] documented in this encounter Discontinued Medications Medication Sig Discontinue Reason Start Date End Da te benzonatate (TESSALON) 200 mg capsule TAKE 1 CAPSULE BY MOUTH THREE TIMES DAILY NEEDED FOR COUGH 05/11/2022 09/21/2022 guaiFENesin ER (MUCINEX) 600 mg 12 hr tablet Take 2 tablets (1,200 mg total) by mouth 2 (two) times a day 09/03/2022 09/21/2022 predniSONE (DELTASONE) 10 mg tablet Take 4 tabs (40mg) daily for 2 days, then 3 tabs (30mg) daily for 2 days, 2 tabs (20mg) daily for 2 days, 1 tab (10 mg) daily for 2 days. 08/29/2022 09/21/2022 documented as of this encounter Historical Medications * This list may reflect changes made after this encounter. olopatadine-mome tasone (Ryaltris) 665-25 mcg/spray spray,non-aeroso l Administer into affected nostril(s) 2 (two) times a day 4 added in this encounter Care Teams Transfusion Nurse Relationship Specialty Start Date End Date Clara Stanley PA [address] [place] [address] PCP - General Nurse Practitioner 04/05/19 Jasper Canchola MD [address] [place] [address] Surgeon Thoracic Surgery 05/11/19 Alexis Lopez MD [address] [facility] [address] [address] Aircraft Hydraulic Equipment Mechanic Pulmonary Disease 05/11/19 Kip Del Rio MD [address] [facility] [address] [place] [address] Medical Oncologist/Crime Prevention Worker Hematology and Oncology 05/11/19 Jacob Flynn MD [address] [facility] [address] [place] [address] Radiation Oncologist Radiation Oncology 05/25/19 Renetta Ballesteros NP [address] [facility] [address] [place] [address] Nurse Practitioner Radiation Oncology 06/11/22 documented as of this encounter
--- OUTSIDE RECORDS SUMMARY | 2024-03-02 03:43 | XMS_ITS | Encounter Summary ---
Author Organization [facility] Address [address] [place] [address] Care Team Providers Care Fire Extinguisher Tester Name Role Phone Clara Stanley Primary Care Provider + Jasper Canchola MD Unavailable Alexis Lopez MD Unavailable [phone] Kip Del Rio MD Unavailable [phone] Jacob Flynn MD Unavailable Reason for Referral * Procedure (Routine) - Closed Specialty Diagnoses / Procedures Referred By Erik galdamez Referred To Contact Diagnoses Mild intermittent asthma without complication Procedures Pulmonary Function Test -[facility]; Full PFT in PFT Lab Shyla Shafer NP [address] [facility] [address] [place] [address] Phone: tel: fax: Referral ID Status Reason Start Date Expiration Date Visits Re quested Visits Authorized [id number] Closed 02/26/2022 03/28/2023 1 1 GER TECHNOLOGY Reason for Visit * Reason Comments follow up Cough Encounter Details Date Type Department Care Team ([facility] Contact Info) Description 02/26/2022 2:15 PM MANAGER TECHNOLOGY Office Visit [facility] Pulmonology [address] [facility] [address] [place] [address] Shyla Shafer, PRINT SHOP STENOGRAPHER [address] [facility] [address] [place] [address] [place] [id number] Lung mass (Primary Dx); Mild intermittent asthma without complication; LEONOR (obstructive sleep apnea); Cough, persistent; Morbid (severe) obesity due to excess calories (HCC); Body mass index (BMI) 45.0-49.9, adult (HCC) Social History Tobacco Use Types Packs/Day [...] file Legal Sex Male 1:17 AM MANAGER TECHNOLOGY Gender Identity Not on file Sexual Orientation Straight 09/22/2019 8: 21 PM CDT 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 on file Not on file documented as of this encounter Last Filed Vital Signs Vital Sign Reading Time Taken Comments Blood Pressure 153/89 02/26/2022 2:06 PM MANAGER TECHNOLOGY Pulse 82 02/26/2022 2:06 PM MANAGER TECHNOLOGY Temperature - - Respiratory Rate 18 02/26/2022 2:06 PM MANAGER TECHNOLOGY Oxygen Saturation 97% 02/26/2022 2:06 PM MANAGER TECHNOLOGY Inhaled Oxygen Concentration - - Weight 167.8 kg (370 lb) 02/26/2022 2:06 PM MANAGER TECHNOLOGY Height 190.5 cm (6' 3 ) 02/26/2022 2:06 PM MANAGER TECHNOLOGY Body Mass Index 46.25 02/26/2022 2:06 PM MANAGER TECHNOLOGY documented in this encounter Ordered Prescriptions Prescription Sig Dispense Quantity Refills Last Filled Start Date End Date fluticasone propionate (FLONASE) 50 mcg/actuation nasal sprayIndications:C ough, persistent Administer 2 sprays into each nostril daily 16 g 6 02/26/2022 fexofenadine (HUI) 180 mg tabletIndications: Cough, persistent Take 1 tablet (180 mg total) by mouth daily 30 tablet 11 02/26/[address] (PROTONIX) 40 mg EC tabletIndications: Cough, persistent Take 1 tablet (40 mg total) by mouth daily 30 tablet 02/26/2022 4 montelukast (SINGULAIR) 10 mg tabletIndications: Mild intermittent asthma without complication Take 1 tablet (10 mg total) by mouth nightly 30 tablet 02/26/2022 4 albuterol HFA (PROVENTIL HFA,VENTOLIN HFA,PROAIR HFA) 90 mcg/actuation inhalerIndications :Mild intermittent asthma without complication Inhale 2 puffs every 6 (six) hours as needed for wheezing Fill per patient's formulary 1 each 02/26/2022 4 documented in this encounter Progress Notes * Shyla Shafer, PRINT SHOP STENOGRAPHER - 02/26/2022 2:15 PM CST Images from the original note were not included. Progress Note Patient: Kwaku Kulkarni ( - 1965) is a 56 y.o. male. Visit Date: 02/26/2022 Chief Complaint Patient presents with follow up Cough History of Present Illness: This is a follow-up for asthma, lung tumor/CA, persistent cough, and LEONOR. The patient states he underwent radiation for the lung mass and has not had any changes for 1 year. The patient continues with CT scans every 3 months as ordered by Oncology Dr. Flynn. See results below. The patient continues positional therapy due to being intolerant to CPAP due to being a restless sleeper and a chroniccough. Patient has CPAP therapy at 5-20 cm water pressure. The patient recalls dreaming. The patient denies snoring under the mask. Patient denies daytime sleepiness or falling asleep at inappropriate situations. The patient denies dry mouth and states energy level is good. We discussed products [id number] for dry mouth. Patient states that he has had a chronic cough for at least 10 years. Has seen an snack bar cashier in the past and did not react to the testing. The patient has also tried acid reflux medications with no change in the cough. Patient seems to think that the cough is worse aftereating. He states there are periods where he has a violent coughing fit which causes mucus production other than that the cough is dry. Past Medical History: Past Medical History: Diagnosis [...] Current Outpatient Medications Medication Sig Dispense Refill amLODIPine (NORVASC) 10 mg tablet Take 10 mg by mouth every morning ascorbic acid (VITAMIN C) 1,000 mg tablet Take 1,000 mg by mouth daily budesonide-formoteroL (Symbicort) 160-4.5 mcg/actuation inhaler Inhale 2 puffs 2 (two) times a day Rinse mouth with water after use. Do not swallow. 10.2 g 0 cholecalciferol (VITAMIN D-3) 50,000 unit capsule Take 50,000 Units by mouth multivitamin capsule Take 1 capsule by mouth daily nitroglycerin (NITROSTAT) 0.[address] 0.4 mg under the tongue every 5 (five) minutes as needed pravastatin (PRAVACHOL) 20 mg tablet Take 20 mg by mouth every morning albuterol HFA (PROVENTIL HFA,VENTOLIN HFA,PROAIR HFA) 90 mcg/actuation inhaler Inhale 2 puffs every6 (six) hours as needed for wheezing Fill per patient's formulary 1 each 11 fexofenadine (HUI) 180 mg tablet Take 1 tablet (180 mg total) by mouth daily 30 tablet 11 fluticasone propionate (FLONASE) 50 mcg/actuation nasal spray Administer 2 sprays into each nostrildaily 16 g 6 montelukast (SINGULAIR) 10 mg tablet Take 1 tablet (10 mg total) by mouth nightly [address] (PROTONIX) 40 mg EC tablet Take 1 tablet (40 mg total) by mouth daily 30 tablet 11 No current facility-administered medications for this visit. Allergies: No Known Allergies Family History: Family History Problem Relation Age of Onset Cancer Mother Heart disease Father Cancer Father Other (lung cancer) Sister Anesthesia problems Neg Hx Social History: Social History Tobacco Use Smoking status: Never Smokeless tobacco: Never Substance and Sexual Activity Drug use: Never Sexual activity: None Alcohol Use: Not on file Review of Systems: Review of Systems Constitutional: Negative for appetite change, fever and unexpected weight change. HENT: Positive for postnasal drip. Negative for rhinorrhea, sinus pressure, sinus pain, sore throatand tinnitus. Respiratory: Positive for cough and shortness of breath. Negative for wheezing. Cardiovascular: Negative for chest pain, palpitations and leg swelling. Gastrointestinal: Negative for abdominal pain, diarrhea, nausea and vomiting. Genitourinary: Negative for hematuria. Musculoskeletal: Positive for arthralgias, back pain and myalgias. Skin: Negative for color change. Allergic/Immunologic: Positive for environmental allergies. Negative for food allergies. Neurological: Negative for dizziness, light-headedness and headaches. Physical Exam: Vitals: 02/26/22 1406 BP: 153/89 BP Location: Left arm Patient Position: Sitting Pulse: 82 Resp: 18 SpO2: 97% Weight: (!) 167.8 kg (370 lb) Height: 190.5 cm (6' 3 ) Physical Exam HENT: Head: Normocephalic and atraumatic. Eyes: Pupils: Pupils are equal, round, and reactive to light. Cardiovascular: Rate and Rhythm: Normal rate and regular rhythm. Pulmonary: Effort: Pulmonary effort is normal. Breath sounds: Normal breath sounds. Abdominal: General: Bowel sounds are normal. Palpations: Abdomen is soft. Musculoskeletal: General: Normal range of motion. Cervical back: Normal range of motion and neck supple. Skin: General: Skin is warm and dry. Neurological: Mental Status: He is alert and oriented to person, place, and time. Data Reviewed Images: CT chest/abd/pelvis FINDINGS: Chest: Postoperative findings of a right [...] study with no evidence of disease progression. Assessment and Plan: Diagnoses and all orders for this visit: Lung mass (Primary) Assessment & Plan: Continues to follow with oncology and CT scanning Mild intermittent asthma without complication Assessment & Plan: The patient was given a trial of [...] times a day, Singulair, Protonix, Hui, IgE, Flonas e, and a PFT. Orders: - IgE; Future - albuterol HFA (PROVENTIL HFA,VENTOLIN HFA,PROAIR HFA) 90 mcg/actuation inhaler; Inhale 2 puffs every 6 (six) hours as needed for wheezing Fill per patient's formulary - montelukast (SINGULAIR) 10 mg tablet; Take 1 tablet (10 mg total) by mouth nightly - Pulmonary Function Test -[facility]; Full PFT in PFT Lab; Future LEONOR (obstructive sleep apnea) Assessment & Plan: Patient will continue with positional therapy. I did encourage the patient to resume CPAP therapy at an auto titrating range of 5-20 cm water pressure. Cough, persistent Assessment & Plan: Patient will continue treating the asthma with Trelegy or Symbicort, continue allergy medications and, continue acid reflux medications Orders: - pantoprazole DR (PROTONIX) 40 mg EC tablet; Take 1 tablet (40 mg total) by mouth daily - fexofenadine (HUI) 180 mg tablet; Take 1 tablet (180 mg total) by mouth daily - fluticasone propionate (FLONASE) 50 mcg/actuation nasal spray; Administer 2 sprays into each nostril daily Morbid (severe) obesity due to excess calories (HCC) Body mass index (BMI) 45.0-49.9, adult (HCC) Rendering Provider & Department: Shyla Shafer NP Cosigned by Alexis Lopez MD at 02/26/2022 3:30 PM MANAGER TECHNOLOGY GER TECHNOLOGY GER TECHNOLOGY documented in this encounter Miscellaneous Notes * Assessment & Plan Note - Shyla Shafer NP - 02/26/2022 2:52 PM MANAGER TECHNOLOGY Associated Problem(s): Cough, persistent Patient will continue treating the asthma with Trelegy or Symbicort, continue allergy medications and, continue acid reflux medications GER TECHNOLOGY * Assessment & Plan Note - Shyla Shafer NP - 02/26/2022 2:50 PM MANAGER TECHNOLOGY Associated Problem(s): Mild intermittent asthma without complication The patient was given a trial of [...] times a day, Singulair, Protonix, Hui, IgE, Flonas e, and a PFT. GER TECHNOLOGY * Assessment & Plan Note - Shyla Shafer NP - 02/26/2022 2:49 PM MANAGER TECHNOLOGY Associated Problem(s): LEONOR (obstructive sleep apnea) Patient will continue with positional therapy. I did encourage the patient to resume CPAP therapy at an auto titrating range of 5-20 cm water pressure. GER TECHNOLOGY * Assessment & Plan Note - Shyla Shafer NP - 02/26/2022 2:49 PM MANAGER TECHNOLOGY Associated Problem(s): Lung mass (Deleted) Continues to follow with oncology and CT scanning GER TECHNOLOGY documented in this encounter Plan of Treatment Not on file documented as of this encounter Results * IgE (06/06/2022 10:01 AM CDT) Pathologist [facility] IgE 26.2 1.0 - 100.0 IUnits/mL SEJAL Blood 06/06/2022 10:0 1 AM CDT 06/06/2022 10:35 AM CDT Shyla Shafer NP LAB BLOOD ORDERABLES Final Result [facility] [address] [facility] [facility] Department [place] [address] * Pulmonary Function Test - (04/18/2022 8:51 AM MANAGER TECHNOLOGY) Pathologist [facility] FVC POST 3.69 L 04/18/2022 8:50 AM MANAGER TECHNOLOGY [facility] FVC PRE 3.73 L 04/18/2022 8:50 AM MANAGER TECHNOLOGY [facility] FEV1 POST 2.85 L 04/18/2022 8:50 AM MANAGER TECHNOLOGY [facility] FEV1 PRE 2.85 L 04/18/2022 8:50 AM MANAGER TECHNOLOGY [facility] [id number] 77.28 % 04/18/2022 8:50 AM MANAGER TECHNOLOGY [facility] [id number] 76.56 % 04/18/2022 8:50 AM MANAGER TECHNOLOGY [facility] GUW04-83% POST 2.56 L/s 04/18/2022 8:50 AM MANAGER TECHNOLOGY [facility] HBZ54-85% PRE 2.41 L/s 04/18/2022 8:50 AM MANAGER TECHNOLOGY [facility] PEF POST 6.65 L/s 04/18/2022 8:50 AM MANAGER TECHNOLOGY [facility] PEF PRE 6.06 L/s 04/18/2022 8:50 AM MANAGER TECHNOLOGY [facility] FET 100% POST 9.44 sec 04/18/2022 8:50 AM MANAGER TECHNOLOGY [facility] FET 100% PRE 8.58 sec 04/18/2022 8:50 AM MANAGER TECHNOLOGY [facility] FIVC POST 3.32 L 04/18/2022 8:50 AM MANAGER TECHNOLOGY [facility] FIVC PRE 3.35 L 04/18/2022 8:50 AM MANAGER TECHNOLOGY [facility] FIF50% POST 4.18 L/s 04/18/2022 8:50 AM MANAGER TECHNOLOGY [facility] FIF50% PRE 4.49 L/s 04/18/2022 8:50 AM [facility] VC PRE 3.81 L 04/18/2022 8:50 AM [facility] TLC PRE 5.46 L 04/18/2022 8:50 AM [facility] RV PRE 1.66 L 04/18/2022 8:50 AM [facility] FRC PL PRE 2.96 L 04/18/2022 8:50 AM [facility] ERV PRE 1.31 L 04/18/2022 8:50 AM [facility] IC PRE 2.46 L 04/18/2022 8:50 AM [facility] RAW PRE 3.38 cmH2O*s/L 04/18/2022 8:50 AM [facility] BF RES 32.05 BPM 04/18/2022 8:50 AM MANAGER TECHNOLOGY [facility] VTG RAW 3.14 L 04/18/2022 8:50 AM MANAGER TECHNOLOGY [facility] VTG 3.14 L 04/18/2022 8:50 AM MANAGER TECHNOLOGY [facility] DLCOc SB 27.30 ml/(min*mm Hg) 04/18/2022 8:50 AM MANAGER TECHNOLOGY [facility] DLCOc SB 27.30 ml/(min*mm Hg) 04/18/2022 8:50 AM [facility] VA 4.75 L 04/18/2022 8:50 AM [facility] DLCO/VA PRE 5.75 ml/(min*mm Hg*L) 04/18/2022 8:50 AM [facility] DLCOc SB 5.75 ml/(min*mm Hg*L) 04/18/2022 8:50 AM [facility] Anatomical Region Laterality Modality PFT 04/18/2022 8:00 AM MANAGER TECHNOLOGY Narrative 04/18/2022 11:55 AM [facility] Impression: Normal spirometry without any evidence of obstruction or change post bronchodilator therapy. Lung volumes demonstrate moderate restrictive ventilatory impairment, likely contributed by elevated BMI. DLCO is normal without any evidence of diffusion impairment. Electronically signed by Blair Cooley MD, [facility] Pul[facility] Critical Care Medicine [facility] Shyla Shafer PRINT SHOP STENOGRAPHER PFT ORDERABLES Final Resul t documented in this encounter Visit Diagnoses Diagnosis Lung mass- Primary Swelling, mass, or lump in chest Mild intermittent asthma without complication LEONOR (obstructive sleep apnea) Obstructive sleep apnea (adult) (pediatric) Cough, persistent Morbid (severe) obesity due to excess calories (HCC) Body mass index (BMI) 45.0-49.9, adult (HCC) Mild intermittent asthma without complication documented in this encounter Discontinued Medications Medication Sig Discontinue Reason Start Date End Da te fluticasone propionate (FLONASE) 50 mcg/actuation nasal spray Other 06/12/2019 02/26/2022 cetirizine (ZyrTEC) 10 mg tabletIndications:Season al Allergic Rhinitis Take 10 mg by mouth every morning Therapy completed 02/26/2022 documented as of this encounter Historical Medications * This list may reflect changes made after this encounter. nitroglycerin (NITROSTAT) 0.[address] 1 tablet (0.4 mg total) under the tongue every 5 (five) minutes as needed 02/12/2022 added in this encounter Care Teams Fire Extinguisher Tester Relationship Specialty Start Date End Date Clara Stanley PA [address] [place] [address] PCP - General Nurse Practitioner 04/05/19 Jasper Canchola MD [address] [place] [address] Surgeon Thoracic Surgery 05/11/19 Alexis Lopez MD [address] [address] Home Energy Inspector Pulmonary Disease 05/11/19 Kip Del Rio MD [address] [facility] [address] [place], [place] [id number] Medical Oncologist/Candy Separator [place] Hematology and Oncology 05/11/19 Jacob Flynn MD [address] [facility] [address] [place] [address] Radiation Oncologist Radiation Oncology 05/25/19 documented as of this encounter
--- OUTSIDE RECORDS SUMMARY | 2024-03-02 03:43 | XMS_ITS | Encounter Summary ---
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) Procedures CT Chest Abdomen Pelvis W Contrast Renetta Ballesteros NP [address] [facility] [address] [place] [address] Phone: tel: fax: [address] [phone] Referral ID Status Reason Start Date Expiration Date Visits Re quested Visits Authorized [id number] Closed 06/11/2022 07/11/2023 1 1 Reason for Visit * MRI/CAT/PET Scan (Routine) - Closed Specialty Diagnoses / Procedures Referred By Erik galdamez Referred To Contact Radiology Diagnoses Malignant neoplasm of lower lobe of right 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 Radiology [facility] [address] [place] [address] Malignant neoplasm of lower lobe of right lung (HCC); Secondary malignant neoplasm of mediastinal [...] on file Legal Sex Male 1:17 AM BOAT OUTFITTER Gender Identity Not on file Sexual Orientation [...] patient's formulary 1 each 11 02/26/2022 4 benzonatate (TESSALON) 200 mg capsule TAKE 1 CAPSULE BY MOUTH THREE TIMES DAILY NEEDED FOR COUGH 05/11/2022 3 fluticasone-umecli din-vilanter (Trelegy Ellipta) 100-62.5-25 mcg inhalerIndications :Bronchospasm Prevention with COPD Inhale 1 puff daily 60 each 11 08/08/2022 4 guaiFENesin ER (MUCINEX) 600 mg 12 hr tablet Take 2 tablets (1,200 mg total) by mouth 2 (two) times a day 60 tablet 1 09/03/2022 3 montelukast (SINGULAIR) 10 mg tabletIndications: Mild intermittent asthma without complication Take 1 tablet (10 mg total) by mouth nightly 30 tablet 11 02/26/2022 4 olopatadine-mometa sone (Ryaltris) 665-25 mcg/spray spray,non-aerosol Administer into affected nostril(s) 2 (two) times a day [address] (PROTONIX) 40 mg EC tabletIndications: Cough, persistent Take 1 tablet (40 mg total) by mouth daily 30 tablet 11 02/26/2022 4 pravastatin (PRAVACHOL) 20 mg tabletIndications: hyperlipidemia Take 1 tablet (20 mg total) by mouth every morning 04/10/2019 4 predniSONE (DELTASONE) 10 mg tablet Take 4 tabs (40mg) daily for 2 days, then 3 tabs (30mg) daily for 2 days, 2 tabs (20mg) daily for 2 days, 1 tab (10 mg) daily for 2 days. 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 Renetta Balelsteros NP IMG CT PROCEDURES Final Result * POCT creatinine (09/18/2022 10:33 AM CDT) Creatinine POC 0.7 0.7 - 1.3 mg/dL [facility] Blood 09/18/2022 10:3 3 AM CDT 09/18/2022 10:33 AM CDT Kip Del Rio MD LAB POCT ORDERABLES - XIOMARA CE Final Result [facility] Department [place] [address] documented in this encounter Visit Diagnoses Diagnosis [...] Once in imaging, contrast, Starting on Priscila 09/18/22 at 1043, For 1 dose Contrast Given 09/18/2022 10:45 AM CDT 119 mL documented in this encounter Orders Medications Ordered That Vikram ht Not Have Been Administered Count Last Ordered Date First Ordered Date ioversoL (OPTIRAY 350) syringe 125 mL 1 08/2022 documented in this encounter Care Teams Nursing Scheduler Relationship Specialty Start Date End Date Clara Stanley PA [address] [place] [id number] PCP - General Nurse Practitioner 04/05/19 Jasper Canchola MD [address] [place] [address] Surgeon Thoracic Surgery 05/11/19 Alexis Lopez MD [address] [address] Press Tender [employer] Pulmonary Disease 05/11/19 Kip Del Rio MD [address] [facility] [address] [place] [address] Medical Oncologist/Fashion Intern Hematology and Oncology 05/11/19 Jacob Flynn MD [address] [facility] [address] [place] [address] Radiation Oncologist Radiation Oncology 05/25/19 Renetta Ballesteros NP [address] [facility] [address] [facility] [address] [place] [address] Nurse Practitioner Radiation Oncology 06/11/22 documented as of this encounter
--- OUTSIDE RECORDS SUMMARY | 2024-03-02 03:43 | XMS_ITS | Encounter Summary ---
Author Organization [facility] Address [address] [facility] [address] [place] [address] Care Team Providers Care Digital Engineer Name Role Phone Clara Stanley Primary Care Provider + Jasper Canchola MD Unavailable Alexis Lopez MD Unavailable [phone] Kip Del Rio MD Unavailable Jacob Flynn MD Unavailable [phone] Reason for Visit * Reason Onset Date Comments Medication Request 03/13/2022 Encounter Details Date Type Department Care Team (Late st Contact Info) Description 03/13/2022 Telephone [facility] Pulmonology [address] [facility] [address] [place] [address] Alexis Lopez MD [address] [facility] [address] [place] [address] Medication Request Social History Tobacco Use Types [...] Binge Drinking Not on file 10/1 03/2020 Sex and Gender Information Value Date Recorded Sex Assigned at Not on file Legal Sex Male 1:17 AM BUSINESS DEVELOPMENT Gender Identity Not on file Sexual Orientation Straight 09/22/2019 8: 21 PM CDT 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 on file Not on file documented as of this encounter Ordered Prescriptions Prescription Sig Dispense Quantity Refills Last Filled Start Date End Date methylPREDNISolone (MEDROL DOSEPACK) 4 mg Dosepack Take as directed on package 1 packet 03/13/2022 3 documented in this encounter Miscellaneous Notes * Addendum Note - Tucker Encarnacion MA - 03/13/2022 12:56 PM CSTAddended by: TUCKER ENCARNACION on: 03/13/2022 12:56 PM Modules accepted: Orders NESS DEVELOPMENT * Telephone Encounter - Tucker Encarnacion MA - 03/13/2022 12:55 PM BUSINESS DEVELOPMENT Patient informed, sent medication to pharmacy. NESS DEVELOPMENT * Telephone Encounter - Noemi Leslie - 03/13/2022 10:24 AM CST Pt called stated that her has had an cough since before and now the cough isgetting worse he is also having drainage wanted to know if provider would send out steroids or something please advise thanks NESS DEVELOPMENT documented in this encounter Plan of Treatment Not on file documented as of this encounter Visit Diagnoses Not on filedocumented in this encounter Care Teams Digital Engineer Relationship Specialty Start Date End Date Clara Stanley PA [address] [place] [address] PCP - General Nurse Practitioner 04/05/19 Jasper Canchola MD [address] [place] [address] [place] [address] Surgeon Thoracic Surgery 05/11/19 Alexis Lopez MD [address] [address] Tilting Head Band Sawyer Pulmonary Disease 05/11/19 Kip Del Rio MD [address] [facility] [address] [place] [address] Medical Oncologist/Chip Washer Hematology and Oncology 05/11/19 Jacob Flynn MD [address] [facility] [address] [place] [address] Radiation Oncologist Radiation Oncology 05/25/19 documented as of this encounter
--- OUTSIDE RECORDS SUMMARY | 2024-03-02 03:44 | XMS_ITS | Encounter Summary ---
Author Organization [facility] Address [address] [place] [address] Care Team Providers Care Bander Hand Name Role Phone Clara Stanley Primary Care Provider + Jasper Canchola MD Unavailable Alexis Lopez MD Unavailable [phone] Kip Del Rio MD Unavailable Jacob Flynn MD Unavailable Encounter Details Date Type Department Care Team (Late st Contact Info) Description 02/18/2021 Orders Only RAD ONC TREATMENTS Miscellaneous, Not In File Social History Tobacco Use Types Packs/Day Years [...] on file Legal Sex Male 1:17 AM REGENERATOR OPERATOR Gender Identity Not on file Sexual Orientation Straight 09/22/2019 8: 21 PM CDT 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 on file Not on file documented as of this encounter Plan of Treatment Not on file documented as of this encounter Procedures Procedure Name Priority Date/Time Associated Diagnosis Comments RAD ONC ARIA SESSION SUMMARY 02/18/2021 7:27 AM REGENERATOR OPERATOR documented in this encounter Results * RAD ONC ARIA SESSION SUMMARY (02/18/2021 7:27 AM REGENERATOR OPERATOR) Course Name [id number] ARIA Course Plan Date 01/18/2021 1:45 PM ARIA Elapsed Days 18 ARIA Treatment Start Date 01/31/2021 ARIA Treatment Site lung dpv ARIA Dose Given To Date (cGy) 4,800 ARIA Session Dosage Given (cGy) 400 ARIA Plan ID MEDIASTINUM ARIA Fractions Treated 12 ARIA Prescribed Dose Per Fraction (cGy) 400 ARIA Prescribed Total Dose (cGy) 6,000 ARIA 02/18/2021 7:27 AM REGENERATOR OPERATOR us Not In File Miscellaneous RADIATION ONCOLOGY ORD ERABLES Final Result ARIA documented in this encounter Visit Diagnoses Not on filedocumented in this encounter Care Teams Bander Hand Relationship Specialty Start Date End Date Clara Stanley PA [address] [place] [address] PCP - General Nurse Practitioner 04/05/19 Jasper Canchola MD [address] [place] [address] Surgeon Thoracic Surgery 05/11/19 Alexis Lopez MD [address] [facility] [address] [address] Manager Of Radiology Pulmonary Disease 05/11/19 Kip Del Rio MD [address] [facility] [address] [place] [address] Medical Oncologist/Youth Specialist Hematology and Oncology 05/11/19 Jacob Flynn MD [address] [facility] [address] [place] [address] Radiation Oncologist Radiation Oncology 05/25/19 documented as of this encounter
--- OUTSIDE RECORDS SUMMARY | 2024-03-02 03:44 | XMS_ITS | Encounter Summary ---
Author Organization [facility] Address [address] [place] [address] Care Team Providers Care Band Salvager Name Role Phone Clara Stanley Primary Care Provider + Jasper Canchola MD Unavailable Alexis Lopez MD Unavailable Kip Del Rio MD Unavailable Jacob Flynn MD Unavailable Encounter Details Date Type Department Care Team (Late st Contact Info) Description 02/13/2021 7:00 AM MAGAZINE JOURNALIST Treatment [facility] Radiation Oncology [address] [facility] [place] [address] Social History Tobacco Use Types Packs/Day Years [...] on file Legal Sex Male 1:17 AM MAGAZINE JOURNALIST Gender Identity Not on file Sexual Orientation Straight 09/22/2019 8: 21 PM CDT 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 on file Not on file documented as of this encounter Plan of Treatment Not on file documented as of this encounter Visit Diagnoses Not on filedocumented in this encounter Care Teams Band Salvager Relationship Specialty Start Date End Date Clara Stanley PA [address] [place] [address] PCP - General Nurse Practitioner 04/05/19 Jasper Canchola MD [address] [place] [address] Surgeon Thoracic Surgery 05/11/19 Alexis Lopez MD [address] [address] Oracle Data Warehouse Developer Pulmonary Disease 05/11/19 Kip Del Rio MD [address] [facility] [address] [place] [address] Medical Oncologist/Cut In Station Operator Hematology and Oncology 05/11/19 Jacob Flynn MD [address] [facility] [address] [place] [address] Radiation Oncologist Radiation Oncology 05/25/19 documented as of this encounter
--- OUTSIDE RECORDS SUMMARY | 2024-03-02 03:44 | XMS_ITS | Encounter Summary ---
Author Organization [facility] Address [address] [place] [address] Care Team Providers Care Fibre Optics Jointer Name Role Phone Clara Stanley Primary Care Provider + Jasper Canchola MD Unavailable Alexis Lopez MD Unavailable Kip Del Rio MD Unavailable Jacob Flynn MD Unavailable Encounter Details Date Type Department Care Team (Late st Contact Info) Description 02/11/2021 7:10 AM CHECKER STOCKER Treatment [facility] for [facility] Radiation Oncology [address] [facility] [place] [address] Social History Tobacco Use Types Packs/Day Years [...] on file Legal Sex Male 1:17 AM CHECKER STOCKER Gender Identity Not on file Sexual Orientation Straight 09/22/2019 8: 21 PM CDT 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 on file Not on file documented as of this encounter Plan of Treatment Not on file documented as of this encounter Visit Diagnoses Not on filedocumented in this encounter Care Teams Fibre Optics Jointer Relationship Specialty Start Date End Date Clara Stanley PA [address] [place] [address] PCP - General Nurse Practitioner 04/05/19 Jasper Canchola MD [address] [place] [address] Surgeon Thoracic Surgery 05/11/19 Alexis Lopez MD [address] [address] Ad Copy Writer Pulmonary Disease 05/11/19 Kip Del Rio MD [address] [facility] [address] [place] [address] Medical Oncologist/Creative Specialist Hematology and Oncology 05/11/19 Jacob Flynn MD [address] [facility] [address] [place] [address] Radiation Oncologist Radiation Oncology 05/25/19 documented as of this encounter
--- OUTSIDE RECORDS SUMMARY | 2024-03-02 03:44 | XMS_ITS | Encounter Summary ---
Author Organization [facility] Healthcare Address [address] [place] [address] Care Team Providers Care Job Honer Name Role Phone Clara Stanley Primary Care Provider + Jasper Canchola MD Unavailable Alexis Lopez MD Unavailable [phone] Kip Del Rio MD Unavailable Jacob Flynn MD Unavailable Encounter Details Date Type Department Care Team (Late st Contact Info) Description 02/14/2021 7:20 AM PERSONAL CARE HOME ADMINISTRATOR Treatment [facility] for [facility] Medicine Radiation Oncology [address] [facility] [place] [address] Social History Tobacco Use Types Packs/Day Years [...] on file Legal Sex Male 1:17 AM PERSONAL CARE HOME ADMINISTRATOR Gender Identity Not on file Sexual Orientation Straight 09/22/2019 8: 21 PM CDT 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 on file Not on file documented as of this encounter Plan of Treatment Not on file documented as of this encounter Visit Diagnoses Not on filedocumented in this encounter Care Teams Job Honer Relationship Specialty Start Date End Date Clara Stanley PA [address] [place] [address] PCP - General Nurse Practitioner 04/05/19 Jasper Canchola MD [address] [place] [address] Surgeon Thoracic Surgery 05/11/19 Alexis Lopez MD [address] [address] Shear Operator Automatic Pulmonary Disease 05/11/19 Kip Del Rio MD [address] [facility] [address] [place] [address] Medical Oncologist/Ply Cutter Hematology and Oncology 05/11/19 Jacob Flynn MD [address] [facility] [address] [place] [address] Radiation Oncologist Radiation Oncology 05/25/19 documented as of this encounter
--- OUTSIDE RECORDS SUMMARY | 2024-03-02 03:44 | XMS_ITS | Encounter Summary ---
Author Organization [facility] Healthcare Address [address] [place] [address] Care Team Providers Care Machine Tool Technology Instructor Name Role Phone Clara Stanley Primary Care Provider + Jasper Canchola MD Unavailable Alexis Lopez MD Unavailable Kip Del Rio MD Unavailable Jacob Flynn MD Unavailable Encounter Details Date Type Department Care Team (Late st Contact Info) Description 02/26/2021 Orders Only [facility] for [facility] Radiation Oncology [address] [facility] Advanced Medicine [facility] [place] [address] Jacob Flynn MD [address] [facility] [address] [place] [address] Carcinoid tumor of right lung (Primary Dx); Neuroendocrine carcinoma of lung (CMS/HCC) (HCC); Secondary malignant neoplasm of [...] on file Legal Sex Male 1:17 AM PARKING RAMP ATTENDANT Gender Identity Not on file Sexual Orientation Straight 09/22/2019 8: 21 PM CDT 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 on file Not on file documented as of this encounter Plan of Treatment Not on file documented as of this encounter Visit Diagnoses Diagnosis 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 documented in this encounter Care Teams Machine Tool Technology Instructor Relationship Specialty Start Date End Date Clara Stanley PA [address] [place] [address] PCP - General Nurse Practitioner 04/05/19 Jasper Canchola MD [address] [place] [address] Surgeon Thoracic Surgery 05/11/19 Alexis Lopez MD [address] [address] Line Installation Supervisor Pulmonary Disease 05/11/19 Kip Del Rio MD [address] [facility] [address] [place] [address] Medical Oncologist/Nurse Extern Hematology and Oncology 05/11/19 Jacob Flynn MD [address] [facility] [address] [place] [address] Radiation Oncologist Radiation Oncology 05/25/19 documented as of this encounter
--- OUTSIDE RECORDS SUMMARY | 2024-03-02 03:44 | XMS_ITS | Encounter Summary ---
Author Organization [facility] Address [address] [place] [address] Care Team Providers Care Fleet Operations Manager Name Role Phone Clara Stanley Primary Care Provider + Jasper Canchola MD Unavailable Alexis Lopez MD Unavailable [phone] Kip Del Rio MD Unavailable Jacob Flynn MD Unavailable [phone] Encounter Details Date Type Department Care Team (Late st Contact Info) Description 02/15/2021 Orders Only RAD ONC TREATMENTS Miscellaneous, Not [...] on file Legal Sex Male 1:17 AM PHOTOGRAPHIC INTELLIGENCE OFFICER Gender Identity Not on file Sexual Orientation Straight 09/22/2019 8: 21 PM CDT 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 on file Not on file documented as of this encounter Plan of Treatment Not on file documented as of this encounter Procedures Procedure Name Priority Date/Time Associated Diagnosis Comments RAD ONC ARIA SESSION SUMMARY 02/15/2021 7:26 AM PHOTOGRAPHIC INTELLIGENCE OFFICER documented in this encounter Results * RAD ONC ARIA SESSION SUMMARY (02/15/2021 7:26 AM PHOTOGRAPHIC INTELLIGENCE OFFICER) Course Name [id number] ARIA Course Plan Date 01/18/2021 1:45 PM ARIA Elapsed Days 15 ARIA Treatment Start Date 01/31/2021 ARIA Treatment Site lung dpv ARIA Dose Given To Date (cGy) 4,400 ARIA Session Dosage Given (cGy) 400 ARIA Plan ID MEDIASTINUM ARIA Fractions Treated 11 ARIA Prescribed Dose Per Fraction (cGy) 400 ARIA Prescribed Total Dose (cGy) 6,000 ARIA 02/15/2021 7:26 AM PHOTOGRAPHIC INTELLIGENCE OFFICER us Not In File Miscellaneous RADIATION ONCOLOGY ORD ERABLES Final Result ARIA documented in this encounter Visit Diagnoses Not on filedocumented in this encounter Care Teams Fleet Operations Manager Relationship Specialty Start Date End Date Clara Stanley PA [address] [place] [address] PCP - General Nurse Practitioner 04/05/19 Jasper Canchola MD [address] [place] [address] Surgeon Thoracic Surgery 05/11/19 Alexis Lopez MD [address] [facility] [address] [address] Armature [employer] Pulmonary Disease 05/11/19 Kip Del Rio MD [address] [facility] [address] [place] [address] Medical Oncologist/Emt I/85 Hematology and Oncology 05/11/19 Jacob Flynn MD [address] [facility] [address] [place] [address] Radiation Oncologist Radiation Oncology 05/25/19 documented as of this encounter
--- OUTSIDE RECORDS SUMMARY | 2024-03-02 03:44 | XMS_ITS | Encounter Summary ---
Author Organization [facility] Healthcare Address [address] [place] [address] Care Team Providers Care Motion Picture Scene Builder Name Role Phone Clara Stanley Primary Care Provider + Jasper Canchola MD Unavailable Alexis Lopez MD Unavailable [phone] Kip Del Rio MD Unavailable Jacob Flynn MD Unavailable Encounter Details Date Type Department Care Team (Late st Contact Info) Description 02/13/2021 OTV [facility] for [facility] Medicine Radiation Oncology [address] [facility] [place] [address] Ayala Martinez RN Social History Tobacco Use Types Packs/Day [...] on file Legal Sex Male 1:17 AM CRM MARKETING SPECIALIST Gender Identity Not on file Sexual [...] - - Weight 163.3 kg (360 lb) 02/13/2021 7:44 AM CRM MARKETING SPECIALIST Height - - Body Mass Index 45 01/08/2021 10:31 AM CDT documented in this encounter Progress Notes * Jacob Flynn MD - 02/13/2021 7:44 AM CST Radiation Oncologist: Jacob Flynn MD Primary Care Physician: Clara Stanley PA Medical Oncologist: Kip Del Rio MD Surgeon: Jasper Canchola MD Date of Service: 02/13/2021 RADIATION ONCOLOGY ON TREATMENT VISIT (OTV) NOTE Diagnosis: Cancer Staging 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 Denies any new symptoms. Denies any pain. Denies fatigue. EXAM: Wt (!) 163.3 kg (360 lb) BMI 45.00 kg/m?? Pain Score and Location 02/13/21 0744 PainSc: 0-No pain NAD, breathing non-labored on RA. Esophagitis: 0 - None Radiation dermatitis: 0 - None Fatigue: 0 - None KPS 90 ASSESSMENT No side effects PLANS Continue with treatment RAD ONC PAIN PLAN: The patient is not currently having any pain that requires changes in pain management. Geovany Flynn MD Professor Director, Clinical Trials Chief, Cardiothoracic Radiation Oncology and Stereotactic Body Radiotherapy Department of Radiation Oncology MARKETING SPECIALIST documented in this encounter Plan of Treatment Not on file documented as of this encounter Visit Diagnoses Not on filedocumented in this encounter Care Teams Motion Picture Scene Builder Relationship Specialty Start Date End Date Clara Stanley PA [address] [place] [address] PCP - General Nurse Practitioner 04/05/19 Jasper Canchola MD [address] [place] [address] Surgeon Thoracic Surgery 05/11/19 Alexis Lopez MD [address] [address] Rod Tape Operator Pulmonary Disease 05/11/19 Kip Del Rio MD [address] [facility] [address] [place] [address] Medical Oncologist/Certified Mortician Hematology and Oncology 05/11/19 Jacob Flynn MD [address] [facility] [address] [place] [address] Radiation Oncologist Radiation Oncology 05/25/19 documented as of this encounter
--- OUTSIDE RECORDS SUMMARY | 2024-03-02 03:44 | XMS_ITS | Encounter Summary ---
Author Organization [facility] Address [address] [place] [address] Care Team Providers Care Contact Lens Molder Name Role Phone Clara Stanley Primary Care Provider + Jasper Canchola MD Unavailable Alexis Lopez MD Unavailable [phone] Kip Del Rio MD Unavailable Jacob Flynn MD Unavailable Encounter Details Date Type Department Care Team (Late st Contact Info) Description 02/12/2021 Orders Only RAD ONC TREATMENTS Miscellaneous, Not [...] on file Legal Sex Male 1:17 AM LABORATORY TECHNICAL SPECIALIST Gender Identity Not on file Sexual Orientation Straight 09/22/2019 8: 21 PM CDT 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 on file Not on file documented as of this encounter Plan of Treatment Not on file documented as of this encounter Procedures Procedure Name Priority Date/Time Associated Diagnosis Comments RAD ONC ARIA SESSION SUMMARY 02/12/2021 7:16 AM LABORATORY TECHNICAL SPECIALIST documented in this encounter Results * RAD ONC ARIA SESSION SUMMARY (02/12/2021 7:16 AM LABORATORY TECHNICAL SPECIALIST) Course Name [id number] ARIA Course Plan Date 01/18/2021 1:45 PM ARIA Elapsed Days 12 ARIA Treatment Start Date 01/31/2021 ARIA Treatment Site lung dpv ARIA Dose Given To Date (cGy) 3,200 ARIA Session Dosage Given (cGy) 400 ARIA Plan ID MEDIASTINUM ARIA Fractions Treated 8 ARIA Prescribed Dose Per Fraction (cGy) 400 ARIA Prescribed Total Dose (cGy) 6,000 ARIA 02/12/2021 7:16 AM LABORATORY TECHNICAL SPECIALIST us Not In File Miscellaneous RADIATION ONCOLOGY ORD ERABLES Final Result ARIA documented in this encounter Visit Diagnoses Not on filedocumented in this encounter Care Teams Contact Lens Molder Relationship Specialty Start Date End Date Clara Stanley PA [address] [place] [address] PCP - General Nurse Practitioner 04/05/19 Jasper Canchola MD [address] [place] [address] Surgeon Thoracic Surgery 05/11/19 Alexis Lopez MD [address] [facility] [address] [address] Chalk Machine Operator Pulmonary Disease 05/11/19 Kip Del Rio MD [address] [facility] [address] [place] [address] Medical Oncologist/Proposal Lead Writer Hematology and Oncology 05/11/19 Jacob Flynn MD [address] [facility] [address] [place] [address] Radiation Oncologist Radiation Oncology 05/25/19 documented as of this encounter
--- OUTSIDE RECORDS SUMMARY | 2024-03-02 03:44 | XMS_ITS | Encounter Summary ---
Author Organization [facility] Address [address] [place] [address] Care Team Providers Care Turning Sander Tender Name Role Phone Clara Stanley Primary Care Provider + Jasper Canchola MD Unavailable Alexis Lopez MD Unavailable [phone] Kip Del Rio MD Unavailable Jacob Flynn MD Unavailable Encounter Details Date Type Department Care Team (Late st Contact Info) Description 02/21/2021 Orders Only RAD ONC TREATMENTS Miscellaneous, Not [...] on file Legal Sex Male 1:17 AM DOUGH MIXER HELPER Gender Identity Not on file Sexual Orientation Straight 09/22/2019 8: 21 PM CDT 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 on file Not on file documented as of this encounter Plan of Treatment Not on file documented as of this encounter Procedures Procedure Name Priority Date/Time Associated Diagnosis Comments RAD ONC ARIA SESSION SUMMARY 02/21/2021 7:35 AM DOUGH MIXER HELPER documented in this encounter Results * RAD ONC ARIA SESSION SUMMARY (02/21/2021 7:35 AM DOUGH MIXER HELPER) Course Name [id number] ARIA Course Plan Date 01/18/2021 1:45 PM ARIA Elapsed Days 21 ARIA Treatment Start Date 01/31/2021 ARIA Treatment Site lung dpv ARIA Dose Given To Date (cGy) 6,000 ARIA Session Dosage Given (cGy) 400 ARIA Plan ID MEDIASTINUM ARIA Fractions Treated 15 ARIA Prescribed Dose Per Fraction (cGy) 400 ARIA Prescribed Total Dose (cGy) 6,000 ARIA 02/21/2021 7:35 AM DOUGH MIXER HELPER us Not In File Miscellaneous RADIATION ONCOLOGY ORD ERABLES Final Result ARIA documented in this encounter Visit Diagnoses Not on filedocumented in this encounter Care Teams Turning Sander Tender Relationship Specialty Start Date End Date Clara Stanley PA [address] [place] [address] PCP - General Nurse Practitioner 04/05/19 Jasper Canchola MD [address] [place] [address] Surgeon Thoracic Surgery 05/11/19 Alexis Lopez MD [address] [facility] [address] [address] Coconut Jelly Roller Pulmonary Disease 05/11/19 Kip Del Rio MD [address] [facility] [address] [place] [address] Medical Oncologist/Milking Worker Hematology and Oncology 05/11/19 Jacob Flynn MD [address] [facility] [address] [place] [address] Radiation Oncologist Radiation Oncology 05/25/19 documented as of this encounter
--- OUTSIDE RECORDS SUMMARY | 2024-03-02 03:44 | XMS_ITS | Encounter Summary ---
Author Organization [facility] Healthcare Address [address] [place] [address] Care Team Providers Care Biodiesel Process Control Technician Name Role Phone Clara Stanley Primary Care Provider + Jasper Canchola MD Unavailable Alexis Lopez MD Unavailable Kip Del Rio MD Unavailable Jacob Flynn MD Unavailable Encounter Details Date Type Department Care Team (Late st Contact Info) Description 02/21/2021 Completion of Therapy [facility] Advanced Medicine Radiation Oncology [address] [facility] Advanced Medicine [facility] [place] [address] Julia Mckenna, TJ [address] [facility] [address] [place] [address] Carcinoid tumor of right lung (Primary Dx); Secondary malignant neoplasm of mediastinal [...] on file Legal Sex Male 1:17 AM SEATER ASSEMBLER Gender Identity Not on file Sexual Orientation Straight 09/22/2019 8: 21 PM CDT 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090) 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 He did not receive adjuvant chemo or radiation. He now has marcus recurrence with high right p aratracheal node - biopsy proven. He is currently receiving radiation therapy to the mediastinum, subcarinal lymph node, 60 Gy in 15 fx. Kwaku Kulkarni now completes palliative radiation therapy. Treatment Delivered: Start Date: 01/31/2021. End Date: 02/21/2021. Radiation Treatments Active Plans MEDIASTINUM Most recent treatment: Dose planned: 400 cGy (fraction 15 on 02/21/2021) Total: Dose planned: 6,000 cGy Elapsed Days: 21 Reference Points lung dpv Most recent treatment: Dose given: 400 cGy (on 02/21/2021) Total: Dose given: 6,000 cGy Elapsed Days: 21 Radiation Treatments No historical radiation treatments to show. Concurrent Therapy: None Pain Plan: RAD ONC PAIN PLAN: The patient is not currently having any pain that requires changes in pain management. Tolerance to Treatment: Mr. Kulkarni tolerated the treatment well. Wt Readings from Last 3 Encounters: 02/20/21 (!) 163.4 kg (360 lb 3.2 oz) 02/13/21 (!) 163.3 kg (360 lb) 02/06/21 (!) 163.7 kg (360 lb 12.8 oz) ?? Esophagitis: 0 - None Radiation dermatitis: 0 - None Fatigue: 0 - None Disposition: ?? Follow up in clinic in [address] chest as arranged by medical oncology. ?? Follow up with medical oncology as arranged next week. ?? Post treatment skin care instructions given. ?? Patient was instructed to call with any concerns prior to scheduled follow up visit. Jacob Flynn MD supervised the patient???s radiation treatment as summarized. 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 documented in this encounter Care Teams Biodiesel Process Control Technician Relationship Specialty Start Date End Date Clara Stanley PA [address] [place] [address] PCP - General Nurse Practitioner 04/05/19 Jasper Canchola MD [address] [place] [address] Surgeon Thoracic Surgery 05/11/19 [place] [address] [place] [address] DR KAMAR [address] [place] [address] Air Motor Repairer Pulmonary Disease 05/11/19 Kip Del Rio MD [address] [facility] [address] [place] [address] Medical Oncologist/Parts Counterman Hematology and Oncology 05/11/19 Jacob Flynn MD 49[address] [facility] [address] [place] [address] Radiation Oncologist Radiation Oncology 05/25/19 documented as of this encounter
--- OUTSIDE RECORDS SUMMARY | 2024-03-02 03:44 | XMS_ITS | Encounter Summary ---
Author Organization [facility] Healthcare Address [address] [place] [address] Care Team Providers Care Control System Computer Scientist Name Role Phone Clara Stanley Primary Care Provider + Jasper Canchola MD Unavailable Alexis Lopez MD Unavailable Kip Del Rio MD Unavailable Jacob Flynn MD Unavailable Encounter Details Date Type Department Care Team (Late st Contact Info) Description 05/24/2021 Telephone [facility] Advanced Medicine Radiation Oncology 49[address] [facility] Advanced Medicine [facility] [place] [address] Jacob Flynn MD [address] [facility] [address] [place] [address] Social History Tobacco Use Types Packs/Day Years [...] on file Legal Sex Male 1:17 AM MERCHANDISING INTERNSHIP Gender Identity Not on file Sexual Orientation Straight 09/22/2019 8: 21 PM CDT 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 Patient updated that [employer] was already aware and will be sending an appeal letter off today and that his office will be in touch. Patient verbalized understanding. HANDISING INTERNSHIP documented in this encounter Plan of Treatment Not on file documented as of this encounter Visit Diagnoses Not on filedocumented in this encounter Care Teams Control System Computer Scientist Relationship Specialty Start Date End Date Clara Stanley PA [address] [place] [address] PCP - General Nurse Practitioner 04/05/19 Jasper Canchola MD [address] [place] [address] Surgeon Thoracic Surgery 05/11/19 Alexis Lopez MD [address] [address] Adoption Coordinator Pulmonary Disease 05/11/19 Kip Del Rio MD [address] [facility] [address] [place], [place] [id number] Medical Oncologist/Globe Mounter Hematology and Oncology 05/11/19 Jacob Flynn MD [address] [facility] [address] [place], [place] [id number] Radiation Oncologist Radiation Oncology 05/25/19 documented as of this encounter
--- OUTSIDE RECORDS SUMMARY | 2024-03-02 03:44 | XMS_ITS | Encounter Summary ---
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) Procedures CT Chest Abdomen Pelvis W Contrast Julia Mckenna NP Phone: tel: fax: [address] [phone] Referral ID Status Reason Start Date Expiration Date Visits Re quested Visits Authorized [id number] Closed 06/06/2021 07/06/2022 1 1 Encounter Details Date Type Department Care Team (Late st Contact Info) Description 06/06/2021 Orders Only [facility] Advanced Medicine Radiation Oncology [address] [place] [address] Amelie Lorenzo MA Neuroendocrine carcinoma of lung (CMS/HCC) [...] on file Legal Sex Male 1:17 AM SHOW DOG TRAINER Gender Identity Not on file [...] NP IMG CT PROCEDURES Final R esult documented [...] nodes documented in this encounter Care Teams Supreme Court Judge Relationship Specialty Start Date End Date Clara Stanley PA [facility] [place] [address] PCP - General Nurse Practitioner 04/05/19 Jasper Canchola MD [address] [place] [address] Surgeon Thoracic Surgery 05/11/19 Alexis Lopez MD [address] [place] [address] [address] Seed Cleaning Machine Operator Pulmonary Disease 05/11/19 Kip Del Rio MD 49[address] [facility] [address] [place] [address] Medical Oncologist/Laboratory Machinist Hematology and Oncology 05/11/19 Jacob Flynn MD [address] [facility] # [address] [place] [address] Radiation Oncologist Radiation Oncology 05/25/19 documented as of this encounter
--- OUTSIDE RECORDS SUMMARY | 2024-03-02 03:44 | XMS_ITS | Encounter Summary ---
Author Organization [facility] Healthcare Address [address] [place] [address] Care Team Providers Care Trackman Name Role Phone Clara Stanley Primary Care Provider + Jasper Canchola MD Unavailable Alexis Lopez MD Unavailable Kip Del Rio MD Unavailable Jacob Flynn MD Unavailable Encounter Details Date Type Department Care Team (Late st Contact Info) Description 02/18/2021 7:20 AM JOINERY MACHINIST Treatment [facility] Radiation Oncology [address] [facility] [facility] [place] [address] Social History Tobacco Use Types Packs/Day Years [...] on file Legal Sex Male 1:17 AM JOINERY MACHINIST Gender Identity Not on file Sexual Orientation Straight 09/22/2019 8: 21 PM CDT 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 on file Not on file documented as of this encounter Plan of Treatment Not on file documented as of this encounter Visit Diagnoses Not on filedocumented in this encounter Care Teams Trackman Relationship Specialty Start Date End Date Clara Stanley PA [address] [place] [address] PCP - General Nurse Practitioner 04/05/19 Jasper Canchola MD [address] [place] [address] Surgeon Thoracic Surgery 05/11/19 Alexis Lopez MD [address] [address] Rcp Pulmonary Disease 05/11/19 Kip Del Rio MD [address] [facility] [address] [place] [address] Medical Oncologist/Grounds Keeper Hematology and Oncology 05/11/19 Jacob Flynn MD [address] [facility] [address] [place] [address] Radiation Oncologist Radiation Oncology 05/25/19 documented as of this encounter
--- OUTSIDE RECORDS SUMMARY | 2024-03-02 03:44 | XMS_ITS | Encounter Summary ---
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 on file Not on file documented as of this encounter Plan of Treatment Not on file documented as of this encounter Procedures Procedure Name Priority Date/Time Associated Diagnosis Comments RAD ONC ARIA SESSION SUMMARY 02/20/2021 7:25 AM COACH DRIVER documented in this encounter Results * RAD ONC ARIA SESSION SUMMARY (02/20/2021 7:25 AM COACH DRIVER) Course Name [id number] ARIA Course Plan Date 01/18/2021 1:45 PM ARIA Elapsed Days 20 ARIA Treatment Start Date 01/31/2021 ARIA Treatment Site lung dpv ARIA Dose Given To Date (cGy) 5,600 ARIA Session Dosage Given (cGy) 400 ARIA Plan ID MEDIASTINUM ARIA Fractions Treated 14 ARIA Prescribed Dose Per Fraction (cGy) 400 ARIA Prescribed Total Dose (cGy) 6,000 ARIA 02/20/2021 7:25 AM COACH DRIVER us Not In File Miscellaneous RADIATION ONCOLOGY ORD ERABLES Final Result ARIA documented in this encounter Visit Diagnoses Not on filedocumented in this encounter Care Teams Inside Sales Territory Manager Relationship Specialty Start Date End Date Clara Stanley PA [address] [place] [address] PCP - General Nurse Practitioner 04/05/19 Jasper Canchola MD [address] [place] [address] Surgeon Thoracic Surgery 05/11/19 Alexis Lopez MD [address] [facility] [address] [address] Public Address Servicer Pulmonary Disease 05/11/19 Kip Del Rio MD 49[address] [facility] [address] [place] [address] Medical Oncologist/Tree Puller Hematology and Oncology 05/11/19 Jacob Flynn MD 49[address] [facility] [address] [place] [address] Radiation Oncologist Radiation Oncology 05/25/19 documented as of this encounter
--- OUTSIDE RECORDS SUMMARY | 2024-03-02 03:44 | XMS_ITS | Encounter Summary ---
Author Organization [facility] Address [address] [place] [address] Care Team Providers Care Stitching Machine Operator Name Role Phone Clara Stanley Primary Care Provider + Jasper Canchola MD Unavailable Alexis Lopez MD Unavailable [phone] Kip Del Rio MD Unavailable Jacob Flynn MD Unavailable Encounter Details Date Type Department Care Team (Late st Contact Info) Description 02/06/2021 Orders Only RAD ONC TREATMENTS Miscellaneous, Not [...] on file Legal Sex Male 1:17 AM ROOM ATTENDANT Gender Identity Not on file Sexual Orientation Straight 09/22/2019 8: 21 PM CDT 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 on file Not on file documented as of this encounter Plan of Treatment Not on file documented as of this encounter Procedures Procedure Name Priority Date/Time Associated Diagnosis Comments RAD ONC ARIA SESSION SUMMARY 02/06/2021 11:25 AM ROOM ATTENDANT documented in this encounter Results * RAD ONC ARIA SESSION SUMMARY (02/06/2021 11:25 AM ROOM ATTENDANT) Course Name [id number] ARIA Course Plan Date 01/18/2021 1:45 PM ARIA Elapsed Days 6 ARIA Treatment Start Date 01/31/2021 ARIA Treatment Site lung dpv ARIA Dose Given To Date (cGy) 2,400 ARIA Session Dosage Given (cGy) 400 ARIA Plan ID MEDIASTINUM ARIA Fractions Treated 6 ARIA Prescribed Dose Per Fraction (cGy) 400 ARIA Prescribed Total Dose (cGy) 6,000 ARIA 02/06/2021 11:2 5 AM ROOM ATTENDANT us Not In File Miscellaneous RADIATION ONCOLOGY ORD ERABLES Final Result ARIA documented in this encounter Visit Diagnoses Not on filedocumented in this encounter Care Teams Stitching Machine Operator Relationship Specialty Start Date End Date Clara Stanley PA [address] [place] [address] PCP - General Nurse Practitioner 04/05/19 Jasper Canchola MD [address] [place] [address] Surgeon Thoracic Surgery 05/11/19 Alexis Lopez MD [address] [facility] [address] [address] Hired Worker Pulmonary Disease 05/11/19 Kip Del Rio MD [address] [facility] [address] [place] [address] Medical Oncologist/Surveying Crew Rodman Hematology and Oncology 05/11/19 Jacob Flynn MD 49[address] [facility] [address] [place] [address] Radiation Oncologist Radiation Oncology 05/25/19 documented as of this encounter
--- OUTSIDE RECORDS SUMMARY | 2024-03-02 03:44 | XMS_ITS | Encounter Summary ---
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 on file Not on file documented as of this encounter Plan of Treatment Not on file documented as of this encounter Procedures Procedure Name Priority Date/Time Associated Diagnosis Comments RAD ONC ARIA SESSION SUMMARY 02/13/2021 7:16 AM DIGITAL MARKETING ANALYST documented in this encounter Results * RAD ONC ARIA SESSION SUMMARY (02/13/2021 7:16 AM DIGITAL MARKETING ANALYST) Course Name [id number] ARIA Course Plan Date 01/18/2021 1:45 PM ARIA Elapsed Days 13 ARIA Treatment Start Date 01/31/2021 ARIA Treatment Site lung dpv ARIA Dose Given To Date (cGy) 3,600 ARIA Session Dosage Given (cGy) 400 ARIA Plan ID MEDIASTINUM ARIA Fractions Treated 9 ARIA Prescribed Dose Per Fraction (cGy) 400 ARIA Prescribed Total Dose (cGy) 6,000 ARIA 02/13/2021 7:16 AM DIGITAL MARKETING ANALYST us Not In File Miscellaneous RADIATION ONCOLOGY ORD ERABLES Final Result ARIA documented in this encounter Visit Diagnoses Not on filedocumented in this encounter Care Teams Fly Frame Tender Relationship Specialty Start Date End Date Clara Stanley PA [address] [place] [address] PCP - General Nurse Practitioner 04/05/19 Jasper Canchola MD [address] [place] [address] Surgeon Thoracic Surgery 05/11/19 Alexis Lopez MD [address] [facility] [address] [address] Composing Room Machinist Pulmonary Disease 05/11/19 Kip Del Rio MD [address] [facility] [address] [place] [address] Medical Oncologist/Instructor Physical Education Hematology and Oncology 05/11/19 Jacob Flynn MD 49[address] [facility] [address] [place] [address] Radiation Oncologist Radiation Oncology 05/25/19 documented as of this encounter
--- OUTSIDE RECORDS SUMMARY | 2024-03-02 03:44 | XMS_ITS | Encounter Summary ---
Author Organization [facility] Address [address] [place] [address] Care Team Providers Care Advanced Research Programs Director Name Role Phone Clara Stanley Primary Care Provider + Jasper Canchola MD Unavailable Alexis Lopez MD Unavailable [phone] Kip Del Rio MD Unavailable Jacob Flynn MD Unavailable Encounter Details Date Type Department Care Team (Late st Contact Info) Description 02/14/2021 Orders Only RAD ONC TREATMENTS Miscellaneous, Not [...] on file Legal Sex Male 1:17 AM GLOBAL HEAD ADVERTISER SOLUTIONS Gender Identity Not on file Sexual Orientation Straight 09/22/2019 8: 21 PM CDT 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 on file Not on file documented as of this encounter Plan of Treatment Not on file documented as of this encounter Procedures Procedure Name Priority Date/Time Associated Diagnosis Comments RAD ONC ARIA SESSION SUMMARY 02/14/2021 7:29 AM GLOBAL HEAD ADVERTISER SOLUTIONS documented in this encounter Results * RAD ONC ARIA SESSION SUMMARY (02/14/2021 7:29 AM GLOBAL HEAD ADVERTISER SOLUTIONS) Course Name [id number] ARIA Course Plan Date 01/18/2021 1:45 PM ARIA Elapsed Days 14 ARIA Treatment Start Date 01/31/2021 ARIA Treatment Site lung dpv ARIA Dose Given To Date (cGy) 4,000 ARIA Session Dosage Given (cGy) 400 ARIA Plan ID MEDIASTINUM ARIA Fractions Treated 10 ARIA Prescribed Dose Per Fraction (cGy) 400 ARIA Prescribed Total Dose (cGy) 6,000 ARIA 02/14/2021 7:29 AM GLOBAL HEAD ADVERTISER SOLUTIONS us Not In File Miscellaneous RADIATION ONCOLOGY ORD ERABLES Final Result ARIA documented in this encounter Visit Diagnoses Not on filedocumented in this encounter Care Teams Advanced Research Programs Director Relationship Specialty Start Date End Date Clara Stanley PA [address] [place] [address] PCP - General Nurse Practitioner 04/05/19 Jasper Canchola MD [address] [place] [address] Surgeon Thoracic Surgery 05/11/19 Alexis Lopez MD [address] [facility] [address] [address] Seafood Technology Specialist Pulmonary Disease 05/11/19 Kip Del Rio MD [address] [facility] [address] [place] [address] Medical Oncologist/Hooker Up Hematology and Oncology 05/11/19 Jacob Flynn MD [address] [facility] [address] [place] [address] Radiation Oncologist Radiation Oncology 05/25/19 documented as of this encounter
--- OUTSIDE RECORDS SUMMARY | 2024-03-02 03:44 | XMS_ITS | Encounter Summary ---
Author Organization [facility] Healthcare Address [address] [place] [address] Care Team Providers Care Freezer Machine Operator Name Role Phone Clara Stanley Primary Care Provider + Jasper Canchola MD Unavailable Alexis Lopez MD Unavailable Kip Del Rio MD Unavailable Jacob Flynn MD Unavailable Encounter Details Date Type Department Care Team (Late st Contact Info) Description 02/19/2021 7:20 AM RISK INVESTIGATOR Treatment [facility] Radiation Oncology [address] [facility] [place] [address] Social History Tobacco Use Types Packs/Day Years [...] on file Legal Sex Male 1:17 AM RISK INVESTIGATOR Gender Identity Not on file Sexual Orientation Straight 09/22/2019 8: 21 PM CDT 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 on file Not on file documented as of this encounter Plan of Treatment Not on file documented as of this encounter Visit Diagnoses Not on filedocumented in this encounter Care Teams Freezer Machine Operator Relationship Specialty Start Date End Date Clara Stanley PA [address] [place] [address] PCP - General Nurse Practitioner 04/05/19 Jasper Canchola MD [address] [place] [address] Surgeon Thoracic Surgery 05/11/19 Alexis Lopez MD [address] [address] Rubber Compounder Formulator Pulmonary Disease 05/11/19 Kip Del Rio MD [address] [facility] [address] [place] [address] Medical Oncologist/Ropewalk Rope Maker Hematology and Oncology 05/11/19 Jacob Flynn MD [address] [facility] [address] [place] [address] Radiation Oncologist Radiation Oncology 05/25/19 documented as of this encounter
--- OUTSIDE RECORDS SUMMARY | 2024-03-02 03:44 | XMS_ITS | Encounter Summary ---
Author Organization [facility] Healthcare Address [address] [place] [address] Care Team Providers Care Pencil Sorter Name Role Phone Clara Stanley Primary Care Provider + Jasper Canchola MD Unavailable Alexis Lopez MD Unavailable [phone] Kip Del Rio MD Unavailable Jacob Flynn MD Unavailable [phone] Reason for Visit * Reason Comments OTV Encounter Details Date Type Department Care Team (Late st Contact Info) Description 02/06/2021 OTV [facility] Advanced Medicine Radiation Oncology [address] [facility] [place] [address] Rosangela Perla MD [address] [place] [address] Neuroendocrine carcinoma of lung (CMS/HCC) (HCC) (Primary Dx) Social History Tobacco Use [...] on file Legal Sex Male 1:17 AM POWDER TRUCK DRIVER Gender Identity Not on file Sexual [...] - Inhaled Oxygen Concentration - - Weight 163.7 kg (360 lb 12.8 oz) 2020 11:34 AM POWDER TRUCK DRIVER Height - - Body Mass Index 45.1 01/08/2021 10:31 AM CDT documented in this encounter Progress Notes * Rosangela Perla MD - 02/06/2021 11:33 AM CST Radiation Oncologist: Jacob Flynn MD Primary Care Physician: Clara Stanley PA Medical Oncologist: Kip Del Rio MD Surgeon: Jasper Canchola MD Date of Service: 02/06/2021 RADIATION ONCOLOGY ON TREATMENT VISIT (OTV) NOTE 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 Neuroendocrine carcinoma of lung (CMS/HCC) (HCC) Yes TREATMENT: Radiation Treatments Active Plans MEDIASTINUM Most recent treatment: Dose planned: 400 cGy (fraction 6 on 02/06/2021) Total: Dose planned: 6,000 cGy Elapsed Days: 6 Reference Points lung dpv Most recent treatment: Dose given: 400 cGy (on 02/06/2021) Total: Dose given: 2,400 cGy Elapsed Days: 6 SUBJECTIVE: Tolerating RT well. Denies any new symptoms. Denies any pain. Denies fatigue. EXAM: Wt (!) 163.7 kg (360 lb 12.8 oz) BMI 45.10 kg/m?? Pain Score and Location 02/06/21 1134 PainSc: 0-No pain NAD, breathing non-labored on RA, abdomen non-distended, A+O x 4 Esophagitis: 0 - None Radiation dermatitis: 0 - None Fatigue: 0 - None KPS ASSESSMENT No side effects PLANS Continue with treatment RAD ONC PAIN PLAN: The patient is not currently having any pain that requires changes in pain management. Rosangela Perla MD, MPHS Manager Mechanical Maintenance of Radiation Oncology [facility] in [place] ER TRUCK DRIVER documented in this encounter Plan of Treatment Not on file documented as of this encounter Visit Diagnoses Diagnosis Neuroendocrine carcinoma of lung (HCC)- Primary documented in this encounter Care Teams Pencil Sorter Relationship Specialty Start Date End Date Clara Stanley PA [address] [place] [address] PCP - General Nurse Practitioner 04/05/19 Jasper Canchola MD [address] [place] [address] Surgeon Thoracic Surgery 05/11/19 Alexis Lopez MD [address] [address] Tearer Press Clipping Pulmonary Disease 05/11/19 Kip Del Rio MD [address] [facility] [address] [place] [address] Medical Oncologist/Saddle And Harness Maker Hematology and Oncology 05/11/19 Jacob Flynn MD [address] [facility] [address] [place] [address] Radiation Oncologist Radiation Oncology 05/25/19 documented as of this encounter
--- OUTSIDE RECORDS SUMMARY | 2024-03-02 03:44 | XMS_ITS | Encounter Summary ---
Author Organization [facility] Healthcare Address [address] [place] [address] Care Team Providers Care Transportation Maintenance Supervisor Name Role Phone Clara Stanley Primary Care Provider + Jasper Canchola MD Unavailable Alexis Lopez MD Unavailable Kip Del Rio MD Unavailable Jacob Flynn MD Unavailable Encounter Details Date Type Department Care Team (Late st Contact Info) Description 02/20/2021 7:20 AM CLOTH PIECER Treatment 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 on file Not on file documented as of this encounter Plan of Treatment Not on file documented as of this encounter Visit Diagnoses Not on filedocumented in this encounter Care Teams Transportation Maintenance Supervisor Relationship Specialty Start Date End Date Clara Stanley PA [address] [place] [address] PCP - General Nurse Practitioner 04/05/19 Jasper Canchola MD [address] [place] [address] Surgeon Thoracic Surgery 05/11/19 Alexis Lopez MD [address] [address] Traffic Signal Technician Pulmonary Disease 05/11/19 Kip Del Rio MD [address] [facility] [address] [place] [address] Medical Oncologist/Biological Photographer Hematology and Oncology 05/11/19 Jacob Flynn MD [address] [facility] [address] [place] [address] Radiation Oncologist Radiation Oncology 05/25/19 documented as of this encounter
--- OUTSIDE RECORDS SUMMARY | 2024-03-02 03:44 | XMS_ITS | Encounter Summary ---
Author Organization [facility] Address [address] [place] [address] Phone Care Team Providers Care First Coat Sander Name Role Phone Clara Stanley Primary Care Provider + Jasper Canchola MD Unavailable Alexis Lopez MD Unavailable Kip Del Rio MD Unavailable Jacob Flynn MD Unavailable Encounter Details Date Type Department Care Team (Late st Contact Info) Description 02/27/2021 Telephone [facility] Oncology [address] [facility] 7th [place] [address] [place] [address] Imelda De Leon, KAMILA Social [...] on file Legal Sex Male 1:17 AM WELL SERVICE PUMP EQUIPMENT OPERATOR Gender Identity Not on file Sexual Orientation Straight 09/22/2019 8: 21 PM CDT 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 Kulkarni to discuss his scheduled appointment with Dr. Del Rio on 02/28/21. He returned my call and is aware that Dr. Flynn will order a repeat scan in 3 months and his follow-up with Dr. Del Rio on 02/28/21 will be canceled and can be rescheduled at any time. He is comfortable with this plan and I offered our ongoing support. SERVICE PUMP EQUIPMENT OPERATOR documented in this encounter Plan of Treatment Not on file documented as of this encounter Visit Diagnoses Not on filedocumented in this encounter Care Teams First Coat Sander Relationship Specialty Start Date End Date Clara Stanley PA [address] [place] [address] PCP - General Nurse Practitioner 04/05/19 Jasper Canchola MD [address] [place] [address] Surgeon Thoracic Surgery 05/11/19 Alexis Lopez MD [facility] [address] [address] Distribution Operations Supervisor Pulmonary Disease 05/11/19 Kip Del Rio MD [address] [facility] [address] [place] [address] Medical Oncologist/Laboratory Miller Hematology and Oncology 05/11/19 Jacob Flynn MD [address] [facility] [address] [place] [address] Radiation Oncologist Radiation Oncology 05/25/19 documented as of this encounter
--- OUTSIDE RECORDS SUMMARY | 2024-03-02 03:44 | XMS_ITS | Encounter Summary ---
Author Organization [facility] Healthcare Address [address] [place] [address] Care Team Providers Care Senior Dentist Name Role Phone Clara Stanley Primary Care Provider + Jasper Canchola MD Unavailable Alexis Lopez MD Unavailable Kip Del Rio MD Unavailable Jacob Flynn MD Unavailable Encounter Details Date Type Department Care Team (Late st Contact Info) Description 02/20/2021 OTV [facility] Advanced Medicine Radiation Oncology [address] [facility] Advanced Medicine [facility] [place] [address] Jacob Flynn MD [address] [facility] [address] LL [address] [place] [address] Social History Tobacco Use Types Packs/Day Years [...] on file Legal Sex Male 1:17 AM MERCANTILE AGENT Gender Identity Not on file Sexual Orientation [...] - Inhaled Oxygen Concentration - - Weight 163.4 kg (360 lb 3.2 oz) 02/20/2021 8:10 AM MERCANTILE AGENT Height - - Body Mass Index 45.02 01/08/2021 10:31 AM CDT documented in this encounter Progress Notes * Librado Valle MD PhD - 02/20/2021 8:10 AM CST Radiation Oncologist: Jacob Flynn MD Primary Care Physician: Clara Stanley PA Medical Oncologist: Kip Del Rio MD Surgeon: Jasper Canchola MD Date of Service: 02/20/2021 RADIATION ONCOLOGY ON TREATMENT VISIT (OTV) NOTE 55-year-old male with a 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 He not receive adjuvant chemo or radiation. He now has marcus recurrence with high right paratracheal node biopsy proven. He is currently receiving radiation therapy to the subcarinal lymph node, 60 Gy in 15 fractions. 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 Patient reports a feeling of a lump in his throat, but denies any pain with swallowing or sore throat. He denies any shortness of breath, new cough, or additional symptoms at this time. EXAM: Wt (!) 163.4 kg (360 lb 3.2 oz) BMI 45.02 kg/m?? Pain Score and Location 02/20/21 0810 PainSc: 3 PainLoc: Throat NAD, breathing non-labored on RA. HEENT: N/A Lungs: Respirations unlabored Neuro: A&Ox3. Normal gait. Esophagitis: 0 - None Radiation dermatitis: 0 - None Fatigue: 0 - None KPS 90 ASSESSMENT No side effects. PLANS Continue with treatment RAD ONC PAIN PLAN: The patient is not currently having any pain that requires changes in pain management. Librado Valle MD, PhD PGY5 Resident Physician Department of Radiation Oncology Cosigned by Jacob Flynn MD at 02/25/2021 10:10 PM MERCANTILE AGENT ANTILE AGENT ANTILE AGENT Associated attestation - Jacob Flynn MD - 02/25/2021 10:10 PM MERCANTILE AGENT I have seen and examined the patient. I agree with the findings and plan of care as documented in the resident/fellow's note. documented in this encounter Plan of Treatment Not on file documented as of this encounter Visit Diagnoses Not on filedocumented in this encounter Care Teams Senior Dentist Relationship Specialty Start Date End Date Clara Stanley PA [address] [place] [address] PCP - General Nurse Practitioner 04/05/19 Jasper Canchola MD [address] [place] [address] Surgeon Thoracic Surgery 05/11/19 Alexis Lopez MD [address] [facility] [address] [address] Weaver Needle Loom Pulmonary Disease 05/11/19 Kip Del Rio MD [address] [facility] [address] [place], [place] [id number] Medical Oncologist/Podiatric Aide Hematology and Oncology 05/11/19 Jacob Flynn MD [address] [facility] [address] [place], [place] [address] Radiation Oncologist Radiation Oncology 05/25/19 documented as of this encounter
--- OUTSIDE RECORDS SUMMARY | 2024-03-02 03:44 | XMS_ITS | Encounter Summary ---
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 on file Not on file documented as of this encounter Plan of Treatment Not on file documented as of this encounter Procedures Procedure Name Priority Date/Time Associated Diagnosis Comments RAD ONC ARIA SESSION SUMMARY 02/11/2021 7:16 AM COBBLER MCKAY documented in this encounter Results * RAD ONC ARIA SESSION SUMMARY (02/11/2021 7:16 AM COBBLER MCKAY) Course Name [id number] ARIA Course Plan Date 01/18/2021 1:45 PM ARIA Elapsed Days 11 ARIA Treatment Start Date 01/31/2021 ARIA Treatment Site lung dpv ARIA Dose Given To Date (cGy) 2,800 ARIA Session Dosage Given (cGy) 400 ARIA Plan ID MEDIASTINUM ARIA Fractions Treated 7 ARIA Prescribed Dose Per Fraction (cGy) 400 ARIA Prescribed Total Dose (cGy) 6,000 ARIA 02/11/2021 7:16 AM COBBLER MCKAY us Not In File Miscellaneous RADIATION ONCOLOGY ORD ERABLES Final Result ARIA documented in this encounter Visit Diagnoses Not on filedocumented in this encounter Care Teams Police Dispatcher Relationship Specialty Start Date End Date Clara Stanley PA [address] [place] [address] PCP - General Nurse Practitioner 04/05/19 Jasper Canchola MD [address] [place] [address] Surgeon Thoracic Surgery 05/11/19 Alexis Lopez MD [address] [facility] [address] [address] Parts Counter Clerk Pulmonary Disease 05/11/19 Kip Del Rio MD [address] [facility] [address] [place] [address] Medical Oncologist/Flight Software Test Engineer Hematology and Oncology 05/11/19 Jacob Flynn MD [address] [facility] [address] [place] [address] Radiation Oncologist Radiation Oncology 05/25/19 documented as of this encounter
--- OUTSIDE RECORDS SUMMARY | 2024-03-02 03:44 | XMS_ITS | Encounter Summary ---
Author Organization [facility] Healthcare Address [address] [place] [address] Care Team Providers Care Nanofabrication Specialist Name Role Phone Clara Stanley Primary Care Provider + Jasper Canchola MD Unavailable Alexis Lopez MD Unavailable Kip Del Rio MD Unavailable Jacob Flynn MD Unavailable Encounter Details Date Type Department Care Team (Late st Contact Info) Description 02/15/2021 7:20 AM BOAT LABORER Treatment [facility] for Advanced Medicine Radiation Oncology [address] [facility] [place] [address] Social History Tobacco Use Types Packs/Day Years [...] file Legal Sex Male 1:17 AM BOAT LABORER Gender Identity Not on file Sexual Orientation Straight 09/22/2019 8: 21 PM CDT 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 on file Not on file documented as of this encounter Plan of Treatment Not on file documented as of this encounter Visit Diagnoses Not on filedocumented in this encounter Care Teams Nanofabrication Specialist Relationship Specialty Start Date End Date Clara Stanley PA [address] [place] [address] PCP - General Nurse Practitioner 04/05/19 Jasper Canchola MD [address] [place] [address] Surgeon Thoracic Surgery 05/11/19 Alexis Lopez MD [address] [address] Metal Refiner Pulmonary Disease 05/11/19 Kip Del Rio MD [address] [facility] [address] [place] [address] Medical Oncologist/Fox Raiser Hematology and Oncology 05/11/19 Jacob Flynn MD [address] [facility] [address] [place] [address] Radiation Oncologist Radiation Oncology 05/25/19 documented as of this encounter
--- OUTSIDE RECORDS SUMMARY | 2024-03-02 03:44 | XMS_ITS | Encounter Summary ---
Author Organization [facility] Healthcare Address [address] [place] [address] Care Team Providers Care Sales Manager [place] Name Role Phone Clara Stanley Primary Care Provider + Jasper Canchola MD Unavailable Alexis Lopez MD Unavailable Kip Del Rio MD Unavailable Jacob Flynn MD Unavailable [phone] Encounter Details Date Type Department Care Team (Late st Contact Info) Description 02/12/2021 7:00 AM COMMERCIAL PEST CONTROL TECHNICIAN Treatment [facility] for Advanced Medicine Radiation Oncology [address] [facility] [place] [address] Social History Tobacco Use Types Packs/Day Years [...] file Legal Sex Male 1:17 AM COMMERCIAL PEST CONTROL TECHNICIAN Gender Identity Not on file Sexual Orientation Straight 09/22/2019 8: 21 PM CDT 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 on file Not on file documented as of this encounter Plan of Treatment Not on file documented as of this encounter Visit Diagnoses Not on filedocumented in this encounter Care Teams Sales Manager [place] Relationship Specialty Start Date End Date Clara Stanley PA [address] [place] [address] PCP - General Nurse Practitioner 04/05/19 Jasper Canchola MD [address] [place] [address] Surgeon Thoracic Surgery 05/11/19 Alexis Lopez MD [address] [address] Marine Equipment Sales Engineer Pulmonary Disease 05/11/19 Kip Del Rio MD [address] [facility] [address] [place] [address] Medical Oncologist/Surgical Technician Hematology and Oncology 05/11/19 Jacob Flynn MD [address] [facility] [address] [place] [address] Radiation Oncologist Radiation Oncology 05/25/19 documented as of this encounter
--- OUTSIDE RECORDS SUMMARY | 2024-03-02 03:44 | XMS_ITS | Encounter Summary ---
Author Organization [facility] Healthcare Address [address] [place] [address] Care Team Providers Care Transistor Tester Name Role Phone Clara Stanley Primary Care Provider + Jasper Canchola MD Unavailable Alexis Lopez MD Unavailable Kip Del Rio MD Unavailable Jacob Flynn MD Unavailable Encounter Details Date Type Department Care Team (Late st Contact Info) Description 06/06/[address] 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 Dr Flynn recommends CTchest/abd and he will review and determine at that time if dotatate PET needed. I called patient to explain and he verbalized understanding and is in agreement. We will call him after review of CT and discuss next steps. documented in this encounter Plan of Treatment Not on file documented as of this encounter Visit Diagnoses Not on filedocumented in this encounter Care Teams Transistor Tester Relationship Specialty Start Date End Date Clara Stanley PA [address] [place] [address] PCP - General Nurse Practitioner 04/05/19 Jasper Canchola MD [address] [place] [address] Surgeon Thoracic Surgery 05/11/19 Alexis Lopez MD [address] [facility] [address] [address] Crown Perforator Operator Pulmonary Disease 05/11/19 Kip Del Rio MD [address] [facility] [address] [place], [place] [id number] Medical Oncologist/Spot Checker Hematology and Oncology 05/11/19 Jacob Flynn MD [address] [facility] [address] [place] [address] Radiation Oncologist Radiation Oncology 05/25/19 documented as of this encounter
--- OUTSIDE RECORDS SUMMARY | 2024-03-02 03:44 | XMS_ITS | Encounter Summary ---
Author Organization [facility] Healthcare Address [address] [place] [address] Care Team Providers Care Shade Hanger Name Role Phone Clara Stanley Primary Care Provider + Jasper Canchola MD Unavailable Alexis Lopez MD Unavailable Kip Del Rio MD Unavailable Jacob Flynn MD Unavailable Encounter Details Date Type Department Care Team (Late st Contact Info) Description 02/06/2021 11:10 AM RING SORTER Treatment [facility] for Advanced Medicine Radiation Oncology [address] [facility] [place] [address] Social History Tobacco Use Types Packs/Day Years [...] on file Legal Sex Male 1:17 AM RING SORTER Gender Identity Not on file Sexual Orientation Straight 09/22/2019 8: 21 PM CDT 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 on file Not on file documented as of this encounter Plan of Treatment Not on file documented as of this encounter Visit Diagnoses Not on filedocumented in this encounter Care Teams Shade Hanger Relationship Specialty Start Date End Date lCara Stanley PA [address] [place] [address] PCP - General Nurse Practitioner 04/05/19 Jasper Canchola MD [address] [place] [address] Surgeon Thoracic Surgery 05/11/19 Alexis Lopez MD [address] [address] Reworker Pulmonary Disease 05/11/19 Kip Del Rio MD [address] [facility] [address] [place] [address] Medical Oncologist/Car Deliverer Hematology and Oncology 05/11/19 Jacob Flynn MD [address] [facility] [address] [place] [address] Radiation Oncologist Radiation Oncology 05/25/19 documented as of this encounter
--- OUTSIDE RECORDS SUMMARY | 2024-03-02 03:44 | XMS_ITS | Encounter Summary ---
Author Organization [facility] Healthcare Address [address] [place] [address] Care Team Providers Care Utility Worker Production Name Role Phone Clara Stanley Primary Care Provider + Jasper Canchola MD Unavailable Alexis Lopez MD Unavailable Kip Del Rio MD Unavailable Jacob Flynn MD Unavailable Encounter Details Date Type Department Care Team (Late st Contact Info) Description 02/21/2021 7:20 AM CHARGER TESTER Treatment [facility] for Advanced Medicine Radiation Oncology [address] [facility] Advanced Medicine [facility] [place] [address] Jacob Flynn MD [address] [facility] [address] [place] [address] Social History Tobacco Use Types Packs/Day Years [...] on file Legal Sex Male 1:17 AM CHARGER TESTER Gender Identity Not on file Sexual Orientation Straight 09/22/2019 8: 21 PM CDT 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 on file Not on file documented as of this encounter Plan of Treatment Not on file documented as of this encounter Visit Diagnoses Not on filedocumented in this encounter Care Teams Utility Worker Production Relationship Specialty Start Date End Date Clara Stanley PA [address] [place] [address] PCP - General Nurse Practitioner 04/05/19 Jasper Canchola MD [address] [place] [address] Surgeon Thoracic Surgery 05/11/19 Alexis Lopez MD [address] [address] Estimating Engineer Pulmonary Disease 05/11/19 Kip Del Rio MD [address] [facility] [address] [place] [address] Medical Oncologist/Department Secretary Hematology and Oncology 05/11/19 Jacob Flynn MD [address] [facility] [address] [place] [address] Radiation Oncologist Radiation Oncology 05/25/19 documented as of this encounter
--- OUTSIDE RECORDS SUMMARY | 2024-03-02 03:44 | XMS_ITS | Encounter Summary ---
Author Organization [facility] Healthcare Address [address] [place] [address] Care Team Providers Care Video Game Programmer Name Role Phone Clara Stanley Primary Care Provider + Jasper Canchola MD Unavailable Alexis Lopez MD Unavailable Kip Del Rio MD Unavailable Jacob Flynn MD Unavailable Encounter Details Date Type Department Care Team (Late st Contact Info) Description 02/27/2021 Orders Only [facility] Radiation Oncology [address] [facility] [place] [address] Amelie Lorenzo MA Neuroendocrine carcinoma of lung (CMS/HCC) (HCC) (Primary Dx); Primary cancer of right lower lobe of lung (CMS/HCC) (HCC); Carcinoid tumor of right [...] on file Legal Sex Male 1:17 AM CAR SALESPERSON Gender Identity Not on file Sexual Orientation Straight 09/22/2019 8: 21 PM CDT 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 on file Not on file documented as of this encounter Plan of Treatment Not on file documented as of this encounter Visit Diagnoses Diagnosis Neuroendocrine carcinoma of lung (HCC)- Primary Primary cancer of right lower lobe of lung (HCC) 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 documented in this encounter Care Teams Video Game Programmer Relationship Specialty Start Date End Date Clara Stanley PA [address] [place] [address] PCP - General Nurse Practitioner 04/05/19 Jasper Canchola MD [address] [place] [address] Surgeon Thoracic Surgery 05/11/19 Alexis Lopez MD [address] [address] Weld Technician Pulmonary Disease 05/11/19 Kip Del Rio MD [address] [place] [address] Medical Oncologist/Stone Hand Hematology and Oncology 05/11/19 Jacob Flynn MD [address] [place] [address] Radiation Oncologist Radiation Oncology 05/25/19 documented as of this encounter
--- OUTSIDE RECORDS SUMMARY | 2024-03-02 03:44 | XMS_ITS | Encounter Summary ---
Author Organization [facility] Address [address] [place] [address] Care Team Providers Care Tools Administrator Name Role Phone Clara Stanley Primary Care Provider + Jasper Canchola MD Unavailable Alexis Lopez MD Unavailable [phone] Kip Del Rio MD Unavailable Jacob Flynn MD Unavailable Encounter Details Date Type Department Care Team (Late st Contact Info) Description 02/19/2021 Orders Only RAD ONC TREATMENTS Miscellaneous, Not [...] on file Legal Sex Male 1:17 AM PRINCIPAL IOS DEVELOPER Gender Identity Not on file Sexual Orientation Straight 09/22/2019 8: 21 PM CDT 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 on file Not on file documented as of this encounter Plan of Treatment Not on file documented as of this encounter Procedures Procedure Name Priority Date/Time Associated Diagnosis Comments RAD ONC ARIA SESSION SUMMARY 02/19/2021 7:33 AM PRINCIPAL IOS DEVELOPER documented in this encounter Results * RAD ONC ARIA SESSION SUMMARY (02/19/2021 7:33 AM PRINCIPAL IOS DEVELOPER) Course Name [id number] ARIA Course Plan Date 01/18/2021 1:45 PM ARIA Elapsed Days 19 ARIA Treatment Start Date 01/31/2021 ARIA Treatment Site lung dpv ARIA Dose Given To Date (cGy) 5,200 ARIA Session Dosage Given (cGy) 400 ARIA Plan ID MEDIASTINUM ARIA Fractions Treated 13 ARIA Prescribed Dose Per Fraction (cGy) 400 ARIA Prescribed Total Dose (cGy) 6,000 ARIA 02/19/2021 7:33 AM PRINCIPAL IOS DEVELOPER us Not In File Miscellaneous RADIATION ONCOLOGY ORD ERABLES Final Result ARIA documented in this encounter Visit Diagnoses Not on filedocumented in this encounter Care Teams Tools Administrator Relationship Specialty Start Date End Date Clara Stanley PA [address] [place] [address] PCP - General Nurse Practitioner 04/05/19 Jasper Canchola MD [address] [place] [address] Surgeon Thoracic Surgery 05/11/19 Alexis Lopez MD [address] [facility] [address] [address] Tube Bending Machine Operator Pulmonary Disease 05/11/19 Kip Del Rio MD [address] [facility] [address] [place] [address] Medical Oncologist/Pantograph Machine Operator Hematology and Oncology 05/11/19 Jacob Flynn MD [address] [facility] [address] [place] [address] Radiation Oncologist Radiation Oncology 05/25/19 documented as of this encounter
--- OUTSIDE RECORDS SUMMARY | 2024-03-02 03:45 | XMS_ITS | Encounter Summary ---
Author Organization [facility] Address [address] [place] [address] Phone Care Team Providers Care Ladies Underwear Operator Name Role Phone Clara Stanley Primary Care Provider + Jasper Canchola MD Unavailable Alexis Lopez MD Unavailable Kip Del Rio MD Unavailable Jacob Flynn MD Unavailable [phone] Encounter Details Date Type Department Care Team (Late st Contact Info) Description 01/09/2021 Documentation [facility] Oncology [address] [facility] Advanced Medicine 7th [place] [address] [place] [address] Kip Del Rio MD [facility] [address] [place] [address] Social History Tobacco Use Types Packs/Day Years [...] on file Legal Sex Male 1:17 AM ACCOUNT EXECUTIVE Gender Identity Not on file Sexual Orientation Straight 09/22/2019 8: 21 PM CDT 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 Kulkarni today after my conversation with Dr. Flynn earlier today. I agree with the decision to proceed with radiation treatment. Mr. Kulkarni is comfortable with that approach.For now, we feel it is best to watch the lesion in the pancreas. Kip Del Rio M.D. documented in this encounter Plan of Treatment Not on file documented as of this encounter Visit Diagnoses Not on filedocumented in this encounter Care Teams Ladies Underwear Operator Relationship Specialty Start Date End Date Clara Stanley PA [facility] [place] [address] PCP - General Nurse Practitioner 04/05/[address] [facility] [place] [address] Surgeon Thoracic Surgery 05/11/19 Alexis Lopez MD [address] [facility] [address] [address] High School Math Tutor Pulmonary Disease 05/11/19 Kip Del Rio MD [address] [facility] [address] [place] [address] Medical Oncologist/Visual Inspector Hematology and Oncology 05/11/19 Jacob Flynn MD [address] [facility] [address] [place] [address] Radiation Oncologist Radiation Oncology 05/25/19 documented as of this encounter
--- OUTSIDE RECORDS SUMMARY | 2024-03-02 03:45 | XMS_ITS | Encounter Summary ---
Author Organization [facility] Address [address] [place] [address] Phone Care Team Providers Care Technology Analyst Name Role Phone Clara Stanley Primary Care Provider + Jasper Canchola MD Unavailable Alexis Lopez MD Unavailable Kip Del Rio MD Unavailable Jacob Flynn MD Unavailable Encounter Details Date Type Department Care Team (Late st Contact Info) Description 12/25/2020 Telephone [facility] Oncology [address] [facility] Advanced Medicine 7th [place] [address] [place] [address] Kip Del Rio MD [facility] [address] [place] [address] Social History Tobacco Use Types Packs/Day Years [...] on file Legal Sex Male 1:17 AM HEADMASTER/MISTRESS Gender Identity Not on file Sexual Orientation Straight 09/22/2019 8: 21 PM CDT documented as of this encounter Miscellaneous Notes * Telephone Encounter - Kip Del Rio MD - 12/25/2020 4:22 PM CDT Since the preliminary findings are concerning for recurrent disease in the mediastinum and surgicaloptions are limited, Dr. Canchola and I feel it is important to assess the extent of disease with Dotatate PET scan. documented in this encounter Plan of Treatment Not on file documented as of this encounter Visit Diagnoses Not on filedocumented in this encounter Care Teams Technology Analyst Relationship Specialty Start Date End Date Clara Stanley PA [address] [place] [address] PCP - General Nurse Practitioner 04/05/19 Jasper Canchola MD [address] [place] [address] Surgeon Thoracic Surgery 05/11/19 Alexis Lopez MD [address] [address] Auto Tune Up Mechanic Pulmonary Disease 05/11/19 Kip Del Rio MD [address] [place] [address] Medical Oncologist/Aircraft Powerplant Repairer Hematology and Oncology 05/11/19 Jaocb Flynn MD [address] [place] [address] Radiation Oncologist Radiation Oncology 05/25/19 documented as of this encounter
--- OUTSIDE RECORDS SUMMARY | 2024-03-02 03:45 | XMS_ITS | Encounter Summary ---
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 Gender Identity Not on file Sexual Orientation Straight 09/22/2019 8: 21 PM CDT documented as of this encounter Medications at Time of Discharge amLODIPine (NORVASC) 10 mg tabletIndication s:hypertension Take 1 tablet (10 mg total) by mouth every morning 04/10/2019 ascorbic acid (VITAMIN C) 1,000 mg tablet Take 1 tablet (1,000 mg total) by mouth daily cholecalciferol (VITAMIN D-3) 50,000 unit capsule Take 1 capsule (50,000 Units total) by mouth albuterol HFA (PROVENTIL HFA,VENTOLIN HFA,PROAIR HFA) 90 mcg/actuation inhaler INL 2 PFS PO Q 4 H PRN 07/27/2019 1 budesonide-formo teroL (SYMBICORT) 160-4.5 mcg/actuation inhaler Inhale 2 puffs 2 (two) times a day Rinse mouth with water after use. Do not swallow. 1 Inhaler 5 08/25/2019 2 cetirizine (ZyrTEC) 10 mg tabletIndication s:Seasonal Allergic Rhinitis Take 10 mg by mouth every morning 2 fluticasone propionate (FLONASE) 50 mcg/actuation nasal spray 06/12/2019 2 gabapentin (NEURONTIN) 300 mg capsule Take 1 capsule (300 mg total) by mouth nightly for 14 days 14 capsule 05/30/2019 1 LORazepam (ATIVAN) 0.5 mg tabletIndication s:anxiety Take 0.5 mg by mouth every 6 (six) hours as needed for anxiety 2 pravastatin (PRAVACHOL) 20 mg tabletIndication s:hyperlipidemia Take 1 tablet (20 mg total) by mouth every morning 04/10/2019 4 traZODone (DESYREL) 50 mg tablet Take 50 mg by mouth daily Just got prescribed this morning. Has not taken any yet. 03/28/2020 1 documented as of this encounter Discharge Disposition Disposition Code Departure Means Destination Discharge to home or self care documented in this encounter Plan of Treatment Not on file documented as of this encounter Procedures Procedure Name Priority Date/Time Associated Diagnosis Comments XR CHEST 1 VIEW IP Routine 12/24/2020 9:46 AM CDT documented in this encounter Results * XR Chest 1 Vw (12/24/2020 9:46 AM CDT) Anatomical Region Laterality Modality Body, Chest N/A Computed Radiogr aphy 12/24/2020 9:53 AM CDT Impressions 12/24/2020 10:18 AM CDT Comparison is made to CT chest 12/14/2020. Small lung volumes with mild bronchovascular crowding. No pneumothorax or pleural effusion. The cardiomediastinal silhouette is within normal limits. Dictated by: Arpan Howard MD PHD The radiology attending physician has personally reviewed this study, and had reviewed and/or edited this written report and agrees with it. Electronically signed by: Luca Remy M.D. Narrative 12/24/2020 10:18 AM CDT EXAMINATION: 1 view chest radiograph Procedure Note Luca Remy MD - 12/24/2020 EXAMINATION: 1 view chest radiograph IMPRESSION: Comparison is made to CT chest 12/14/2020. Small lung volumes with mild bronchovascular crowding. No pneumothorax or pleural effusion. The cardiomediastinal silhouette is within normal limits. Dictated by: Arpan Howard MD PHD The radiology attending physician has personally reviewed this study, and had reviewed and/or edited this written report and agrees with it. Electronically signed by: Luca Remy M.D. Yakov Gupta MD IMG XR PROCEDURES Final Resul t documented in this encounter Visit Diagnoses Not on filedocumented in this encounter Care Teams Manager Culture Relationship Specialty Start Date End Date Clara Stanley PA [address] [place] [address] PCP - General Nurse Practitioner 04/05/19 Jasper Canchola MD [address] [place] [address] Surgeon Thoracic Surgery 05/11/19 Alexis Lopez MD [address] [facility] [address] [place] [address] [place] [address] Supervisor Weaving Pulmonary Disease 05/11/19 Kip Del Rio MD [address] [facility] [address] [place] [address] Medical Oncologist/Aviation All Source Intelligence Hematology and Oncology 05/11/19 Jacob Flynn MD [address] [facility] [address] [place] [address] Radiation Oncologist Radiation Oncology 05/25/19 documented as of this encounter
--- OUTSIDE RECORDS SUMMARY | 2024-03-02 03:45 | XMS_ITS | Encounter Summary ---
Author Organization [facility] Address [address] [facility] [address] [place] [address] Phone Care Team Providers Care Chief Technology Officer Name Role Phone Clara Stanley Primary Care Provider + Jasper Canchola MD Unavailable Alexis Lopez MD Unavailable [phone] Kip Del Rio MD Unavailable [phone] Jacob Flynn MD Unavailable Reason for Visit * Reason Onset Date Comments DOTATATE PET APPEAL 01/01/2021 Encounter Details Date Type Department Care Team (Late st Contact Info) Description 01/01/2021 Documentation [facility] Surgery [address] 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 Kwaku Kulkarni. He is a patient with metastatic neuroendocrine carcinoma. On May 26, 2019, he was taken to the operating room where he underwent a right thoracotomy, right lower lobectomy with mediastinal lymph node dissection for excisionof a carcinoid tumor with associated mediastinal lymph node metastases. His postoperative course was complicated by a post lobectomy cough in which he underwent a diagnostic flexible bronchoscopy on August 10, 2019. Bronchoscopy findings were essentially unremarkable. Random tracheal bronchial washings were submitted for culture in which they did not show any organisms. He has been doing reasonably w ell. Recent surveillance imaging demonstrated enlargement of a right paratracheal lymph node. The Interventional Pulmonary Department performed a bronchoscopy with endobronchial ultrasound-guided biopsy on December 24, 2020. Unfortunately, the right paratracheal lymph node was consistent with metastatic carcinoid tumor. We have requested a DOTATATE PET scan in order to determine the most appropriate treatment strategy for this patient. It is my understanding that this request has been denied on 2 separate occasions. According to the NCCN Guidelines for Neuroendocrine Tumors, a DOTATATE PET is recommended to detect the presence of occult neuroendocrine tumor. I am asking you to reconsider and approve our request for a DOTATATE PET scan for this patient with metastatic neuroendocrine tumor. Kindest regards, Stephanie Bautista, ANP- Nurse Practitioner for Dr. Christian Canchola Licensing Representative completed using [employer]*my6sense Direct speaking software, therefore, test conductor variances may occur. documented in this encounter Plan of Treatment Not on file documented as of this encounter Visit Diagnoses Not on filedocumented in this encounter Care Teams Chief Technology Officer Relationship Specialty Start Date End Date Clara Stanley PA [address] [place] [address] PCP - General Nurse Practitioner 04/05/19 Jasper Canchola MD [address] [place] [address] Surgeon Thoracic Surgery 05/11/19 Alexis Lopez MD [address] [address] City Auditor Pulmonary Disease 05/11/19 Kip Del Rio MD [address] [facility] [address] [place] [address] Medical Oncologist/Wireless Field Technician Hematology and Oncology 05/11/19 Jacob Flynn MD [address] [facility] [address] [place] [address] Radiation Oncologist Radiation Oncology 05/25/19 documented as of this encounter
--- OUTSIDE RECORDS SUMMARY | 2024-03-02 03:45 | XMS_ITS | Encounter Summary ---
Author Organization [facility] Address [address] [place] [address] Care Team Providers Care Director Of Intercollegiate Athletics Name Role Phone Clara Stanley Primary Care Provider + Jasper Canchola MD Unavailable Alexis Lopez MD Unavailable Kip Del Rio MD Unavailable [phone] Jacob Flynn MD Unavailable Reason for Referral * MRI/CAT/PET Scan (Routine) - Denied Specialty Diagnoses / Procedures Referred By Contac rudolph Referred To Contact Radiology Diagnoses Neuroendocrine carcinoma (HCC) Procedures PET/CT Dotatate Skull to Thigh Stephanie Bautista NP [address] [facility] [id number] [place] [address] Phone: tel: fax: [address] [phone] Referral ID Status Reason Start Date Expiration Date Visits Re quested Visits Authorized [id number] Denied 12/24/2020 01/23/2022 2 0 Reason for Visit * MRI/CAT/PET Scan (Routine) - Denied Specialty Diagnoses / Procedures Referred By Contac t Referred To Contact Radiology Diagnoses Neuroendocrine carcinoma (HCC) Procedures PET/CT Dotatate Skull to Thigh Stephanie Bautista NP [address] [facility] [id number] [place] [address] Phone: tel: fax: [facility] [address] [facility] [address] [place] [address] Referral ID Status Reason Start Date Expiration Date Visits Re quested Visits Authorized [id number] Denied 12/24/2020 01/23/2022 2 0 Encounter Details Date Type Department Care Team (Latest Contact Info) Description 01/08/2021 7:17 AM CDT - 01/08/2021 11:59 PM CDT Hospital Encounter 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 2. 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 ?? Dictated by: Vinicio Reeder MD The radiology attending physician has personally reviewed this study, and had reviewed and/or edited this written report and agrees with it. Electronically signed by: Prabhu Montanez M.D., Ph.D. Narrative 01/08/2021 11:13 AM CDT EXAMINATION: Cu-64 DOTATATE -PET/CT IMAGING DATE OF STUDY: ??01/08/2021 SCANNER: mCT RADIOPHARMACEUTICAL: 4.8 mCi Cu-64 DOTATATE i.v. ??Injection site: Left antecubital fossa. 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 ??12/24/2020 fine-needle aspiration of a right level II mediastinal node demonstrated neuroendocrine carcinoma. ??The study is requested for restaging of documented recurrent disease . Subsequent treatment strategy. TECHNIQUE: ??After intravenous administration of the radiopharmaceutical, noncontrast CT images were obtained for attenuation correction and for fusion with emission PET images to allow for anatomical localization of PET findings. ??Emission PET images were then obtained. ??The study was interpreted on the [employer] workstation. ?? Scanned area: skull vertex to the proximal thighs; the time from injection of tracer to start of imaging for this scan position was 65 minutes. Spleen max SUV: 35.8 Liver max SUV: 21.8 Blood pool max SUV: 3.3 COMPARISON: 05/03/[address]; 12/14/2020 CT chest with contrast FINDINGS: A low right paratracheal lymph node (image 142) with intense tracer uptake, slightly greater than that of the spleen, measures 14 x 18 mm and is similar to most recent chest CT allowing for differences in technique. Focal moderate uptake within the pancreatic tail (image 234) is suspicious for an intrapancreatic neuroendocrine lesion and has a questionable 1 cm correlate; further characterization by pancreatic mass protocol CT or MRI could be performed to increase diagnostic certainty. Diffuse moderate to intense uptake within the pancreatic uncinate process is favored to be physiologic. No additional suspicious DOTATATE avidity. In particular, no suspicious pulmonary uptake to suggest a new primary neuroendocrine lesion or pulmonary disease recurrence; trace right pleural effusion with post right lower lobectomy and thoracotomy changes, and right basilar scarring versus subsegmental atelectasis. ??Prominence of bilateral cervical and additional mediastinal lymph nodes are without abnormal tracer uptake or overtly suspicious morphology, and are favored to be reactive. Mild uptake within the prostate gland (image 373) is favored to be inflammatory versus heterogenous glandularity activity. Additional CT findings: Mild left maxillary sinus disease. ??Mild to moderate descending and proximal sigmoid colonic diverticulosis. Suspected bone island in the posterior right 4th rib (image 149) does not have suspicious avidity. ?? Procedure Note Prabhu Montanez MD - 01/08/2021 EXAMINATION: Cu-64 DOTATATE -PET/CT IMAGING DATE OF STUDY: 01/08/2021 SCANNER: mCT RADIOPHARMACEUTICAL: 4.8 mCi Cu-64 DOTATATE i.v. Injection site: Left antecubital fossa. 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 12/24/2020 fine-needle aspiration of a right level II mediastinal node demonstrated neuroendocrine carcinoma. The study is requested for restaging of documented recurrent disease . Subsequent treatment strategy. TECHNIQUE: After intravenous administration of the radiopharmaceutical, noncontrast CT images were obtained for attenuation correction and for fusion with emission PET images to allow for anatomical localization of PET findings. Emission PET images were then obtained. The study was interpreted on the [employer] workstation. Scanned area: skull vertex to the proximal thighs; the time from injection of tracer to start of imaging for this scan position was 65 minutes. Spleen max SUV: 35.8 Liver max SUV: 21.8 Blood pool max SUV: 3.3 COMPARISON: 05/03/[address]; 12/14/2020 CT chest with contrast FINDINGS: A low right paratracheal lymph node (image 142) with intense tracer uptake, slightly greater than that of the spleen, measures 14 x 18 mm and is similar to most recent chest CT allowing for differences in technique. Focal moderate uptake within the pancreatic tail (image 234) is suspicious for an intrapancreatic neuroendocrine lesion and has a questionable 1 cm correlate; further characterization by pancreatic mass protocol CT or MRI could be performed to increase diagnostic certainty. Diffuse moderate to intense uptake within the pancreatic uncinate process is favored to be physiologic. No additional suspicious DOTATATE avidity. In particular, no suspicious pulmonary uptake to suggest a new primary neuroendocrine lesion or pulmonary disease recurrence; trace right pleural effusion with post right lower lobectomy and thoracotomy changes, and right basilar scarring versus subsegmental atelectasis. Prominence of bilateral cervical and additional mediastinal lymph nodes are without abnormal tracer uptake or overtly suspicious morphology, and are favored to be reactive. Mild uptake within the prostate gland (image 373) is favored to be inflammatory versus heterogenous glandularity activity. Additional CT findings: Mild left maxillary sinus disease. Mild to moderate descending and proximal sigmoid colonic diverticulosis. Suspected bone island in the posterior right 4th rib (image 149) does not have suspicious avidity. IMPRESSION: 1. 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 2. 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 Dictated by: Vinicio Reeder MD The radiology attending physician has personally reviewed this study, and had reviewed and/or edited this written report and agrees with it. Electronically signed by: Prabhu Montanez M.D., Ph.D. Stephanie Bautista NP IMG PET PROCEDURES Final Result documented in this encounter Visit Diagnoses Diagnosis Neuroendocrine carcinoma (HCC) Other malignant neoplasm of unspecified site documented in this encounter Administered Medications Inactive Administered Medications - up to 3 most recent administrations Medication Order MAR Action Action Date Dose Rate Site Cu-64 Dotatate (DETECTNET) injection 4 millicurie 4 millicurie, intravenous, Once in imaging, radiopharmaceutical, Starting on Thu01/08/21 at 0724, For 1 dose Given 01/08/2021 7:44 AM CDT 4.79 millicuries documented in this encounter Orders Medications Ordered That Vikram ht Not Have Been Administered Count Last Ordered Date First Ordered Date Cu-64 Dotatate (DETECTNET) i njection 4 millicurie 1 01/08/2021 documented in this encounter Care Teams Director Of Intercollegiate Athletics Relationship Specialty Start Date End Date Clara Stanley PA [address] [place] [id number] PCP - General Nurse Practitioner 04/05/19 Jasper Canchola MD [address] [place] [address] Surgeon Thoracic Surgery 05/11/19 Alexis Lopez MD [address] [address] Articulation Officer Pulmonary Disease 05/11/19 Kip Del Rio MD [address] [place], [place] [id number] Medical Oncologist/Clinical Scientist Hematology and Oncology 05/11/19 Jacob Flynn MD [address] [place] [address] Radiation Oncologist Radiation Oncology 05/25/19 documented as of this encounter
--- OUTSIDE RECORDS SUMMARY | 2024-03-02 03:45 | XMS_ITS | Encounter Summary ---
Author Organization [facility] Healthcare Address [address] [place] [address] Care Team Providers Care Poultry And Fish Butcher Name Role Phone Clara Stanley Primary Care Provider + Jasper Canchola MD Unavailable Alexis Lopez MD Unavailable Kip Del Rio MD Unavailable Jacob Flynn MD Unavailable Encounter Details Date Type Department Care Team (Late st Contact Info) Description 01/08/2021 10:00 AM CDT Consult [facility] Radiation Oncology [facility] Advanced Medicine [facility] [place] [address] Jacob Flynn MD 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 on file Not on file documented as of this encounter Last Filed Vital Signs Vital Sign Reading Time Taken Comments Blood Pressure 163/98 01/08/2021 10:31 AM CDT Pulse 71 01/08/2021 10:31 AM CDT Temperature - - Respiratory Rate 16 01/08/2021 10:3 1 AM CDT Oxygen Saturation 100% 01/08/2021 10: 31 AM CDT Inhaled Oxygen Concentration - - Weight 163.1 kg (359 lb 9.6 oz) 021 10:31 AM CDT Height 190.5 cm (6' 3 ) 01/08/2021 10:3 1 AM CDT Body Mass Index 44.95 01/08/2021 10:31 AM CDT documented in this encounter Discharge Disposition Disposition Code Departure Means Destination Discharge to home or self care documented in this encounter Consult Notes * Julia Mckenna NP - 01/08/2021 10:00 AM CDT Staff Physician: Jacob Flynn MD Dictating Provider:Julia Mckenna NP Referring Physician: Kip Del Rio MD Medical oncology: Kip Del Rio MD Surgeon: Jasper Canchola MD Primary Care Physician: Clara Stanley PA Date of Service: 01/08/2021 RADIATION ONCOLOGY CONSULT NOTE IDENTIFYING DATA: Cancer Staging Carcinoid tumor of right lung Staging form: Lung, AJCC 8th Edition - Clinical: Stage IIIA (cT1c, cN2, cM0) - Unsigned (C7A.8) Neuroendocrine carcinoma of lung (CMS/HCC) (HCC) (C77.1) 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 He now presents with biopsy proven secondary malignancy to right paratracheal node. HISTORY OF PRESENT ILLNESS: The patient is a 55 y.o. male being seen for consultation in radiation oncology for palliative radiation therapy for biopsy-proven right paratracheal lymph node consistent with his atypical neuroendocrine carcinoma 9 carcinoid tumor). He was originally seen in Radiation therapy for consultation on 05/25/2019. He was diagnosed with low-grade neuroendocrine carcinoma of the right lower lobe and underwent right lower lobectomy with lymph node dissection at this facility by Dr. Herrera Canchola on 05/26/2019. Level 7 node was positive for low to intermediate grade metastatic neuroendocrine carcinoma features. He did not receive adjuvant radiation nor did he receive adjuvant systemic therapy. He has been followed by Dr. Emilee Canchola. Most recent restaging imaging demonstrated increase in sizeof the high right paratracheal lymph node. He underwent endobronchial ultrasound fine-needle aspiration on 12/24/2020 which confirmed metastatic neuroendocrine carcinoma consistent with the patient's known primary at this facility ([facility] Accession #[id number]. Dr. Canchola spoke to him regarding surgical resection which would require a mediansternotomy. He also spoke to Dr. Kip Del Rio regarding systemic therapy. Dr. Del Rio arrange d for a DOTATATE PET scan and refer the patient back to Radiation therapy for further discussion regarding radiation therapy options. He is here today with his . Radiographic imaging reviewed by Dr. Flynn in clinic today and discussed with the patient and his : CT chest with contrast 12/14/2020 at [facility]: slight increase in enlarged high right paratracheal node measuring 1.[address] imaging of the chest at this facility dated 09/19/2020 the right paratracheal nodemeasured 1 cm in short axis. This node measured 7 mm on 03/28/2020 imaging. Stable lung nodules measuring up to 5 mm and stable post surgical changes from right lower lobectomy. PET/CT CU-64 DOTATATE performed on 01/08/2021 at [facility] demonstrates the right paratracheal lymph nodehas intense tracer uptake slightly greater than that of cyst of the spleen measuring 14 x 18 mm. Focal uptake in the pancreatic tail suspicious for an intra pancreatic neuroendocrine lesion. This measures 1 cm. This could be further characterized by pancreatic mass protocol CT or MRI. No additionalsuspicious DOTATATE avidity. Most recent right paratracheal node Cytology: reviewed above. Past Medical, Surgical, family and social History was reviewed. Past Medical History: Diagnosis Date ??? LEIDA (acute kidney injury) (CMS/HCC) (HCC) ??? Asthma ??? Cancer (CMS/HCC) (HCC) ??? Carcinoid tumor of lung right lung ??? Chronic headaches 03/2019 IIH (idiopathic intracranial hypertension) ??? Hypertension ??? Hyponatremia ??? IIH (idiopathic intracranial hypertension) ??? LEONOR (obstructive sleep apnea) 12/02/2019 Past Surgical History: Procedure Laterality Date ??? ABDOMINAL SURGERY ??? APPENDECTOMY ??? BRONCHOSCOPY 05/30/2019 ??? COLONOSCOPY 2018 ??? COLONOSCOPY ??? ESOPHAGOGASTRODUODENOSCOPY 04/2019 ??? LUMBAR PUNCTURE 04/03/2019 ??? MEDIASTINOSCOPY 05/19/2019 Cervical Mediastinoscopy ??? THORACOTOMY 05/26/2019 THORACOTOMY LOBECTOMY / lymph node disection (Right) ??? TONSILLECTOMY Family History Problem Relation Age of Onset ??? Cancer Mother ??? Heart disease Father ??? Cancer Father ??? Other (lung cancer) Sister ??? Anesthesia problems Neg Hx Social History Socioeconomic History ??? Marital status: Spouse name: None ??? Number of children: None ??? Years of education: None ??? Highest education level: None Occupational History ??? 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 Smoking status: Never Smoker ??? Smokeless tobacco: Never Used Vaping Use ??? Vaping Use: Never used Substance and Sexual Activity ??? Alcohol use: Yes Alcohol/week: 2.0 - 3.0 standard drinks Types: 2 - 3 Standard drinks or equivalent per week ??? Drug use: Never ??? Sexual activity: None Other Topics Concern ??? None Social History Narrative ??? None Social Determinants of Health Financial Resource Strain: ??? Difficulty of Paying Living Expenses: Not on file Food Insecurity: ??? Worried About Running Out of Food in the Last Year: Not on file ??? Ran Out of Food in the Last Year: Not on file Transportation Needs: ??? Lack of Transportation (Medical): Not on file ??? Lack of Transportation (Non-Medical): Not on file Physical Activity: ??? Days of Exercise per Week: Not on file ??? Minutes of Exercise per Session: Not on file Stress: ??? Feeling of Stress : Not on file Social Connections: ??? Frequency of Communication with Friends and Family: Not on file ??? Frequency of Social Gatherings with Friends and Family: Not on file ??? Attends Denominational Services: Not on file ??? Active Member of Clubs or Organizations: Not on file ??? Attends Club or Organization Meetings: Not on file ??? Marital Status: Not on file Intimate Partner Violence: ??? Fear of Current or Ex-Partner: Not on file ??? Emotionally Abused: Not on file ??? Physically Abused: Not on file ??? Sexually Abused: Not on file ALLERGIES: Allergies as of 01/08/2021 Reviewed by Ayala Martinez RN on 01/08/2021 No Known Allergies MEDICATIONS: Review Info User Date and Time JULIA MCKENNA NP [[id number]] 01/08/2021 10:23 AM REVIEW OF SYSTEM Review of Systems Constitutional: Positive for fatigue. HENT: Negative. Eyes: Negative. Respiratory: Negative. Cardiovascular: Negative. Gastrointestinal: Negative. Endocrine: Negative. Genitourinary: Negative. Musculoskeletal: Negative. Skin: Negative. Neurological: Negative. Hematological: Negative. Psychiatric/Behavioral: Negative. All other systems reviewed and are negative. Pain: negative. RADIATION SCREENING QUESTIONS Prior radiation therapy: No Pacemaker: No Pathology reviewed at [facility]: Yes, see HPI Other implantable devices: No Connective tissue disease: No Inflammatory bowel disease No PHYSICAL EXAMINATION: BP 163/98 Pulse 71 Resp 16 Ht 190.5 cm (6' 3 ) Wt (!) 163.1 kg (359 lb 9.6 oz) SpO2 100% BMI 44.95 kg/m?? Pain Score and Location 01/08/21 1031 PainSc: 0-No pain Physical Exam Vitals and nursing note reviewed. Constitutional: General: He is not in acute distress. Appearance: Normal appearance. He is normal weight. HENT: Head: Normocephalic and atraumatic. Right Ear: External ear normal. Left Ear: External ear normal. Nose: Nose normal. No congestion or rhinorrhea. Mouth/Throat: Mouth: Mucous membranes are moist. Pharynx: Oropharynx is clear. No oropharyngeal exudate. Eyes: General: Right eye: No discharge. Left eye: No discharge. Extraocular Movements: Extraocular movements intact. Conjunctiva/sclera: Conjunctivae normal. Pupils: Pupils are equal, round, and reactive to light. Cardiovascular: Rate and Rhythm: Normal rate and regular rhythm. Pulses: Normal pulses. Heart sounds: No murmur heard. Pulmonary: Effort: Pulmonary effort is normal. No respiratory distress. Breath sounds: Normal breath sounds. No wheezing. Abdominal: General: Abdomen is flat. Bowel sounds are normal. There is no distension. Tenderness: There is no abdominal tenderness. Musculoskeletal: General: No swelling or tenderness. Normal range of motion. Cervical back: Normal range of motion and neck supple. No rigidity. No muscular tenderness. Right lower leg: No edema. Left lower leg: No edema. Lymphadenopathy: Cervical: No cervical adenopathy. Skin: General: Skin is warm and dry. Capillary Refill: Capillary refill takes less than 2 seconds. Neurological: General: No focal deficit present. Mental Status: He is alert and oriented to person, place, and time. Mental status is at baseline. Cranial Nerves: No cranial nerve deficit. Psychiatric: Mood and Affect: Mood normal. Behavior: Behavior normal. Thought Content: Thought content normal. Judgment: Judgment normal. PERFORMANCE STATUS: Karnofsky Score: Able to carry on normal activity ECOG Score: 0 The Karnofsky performance scale today is DESC; KARNOFSKY SCALE WITH ECOG EQUIVALENT: 90, Able to carry on normal activity; minor signs or symptoms of disease (ECOG equivalent 0). DIAGNOSTIC REPORTS REVIEWED: I personally reviewed the following data and diagnostic images. Some findings are noted in the history of present illness. I reviewed data and images with attending, Dr. Jacob Flynn. Please refer to initial consultation note for initial review of history an all data. Imaging: Reviewed above Laboratory/Pathology: Cytology reviewed above. Component Latest Ref Rng & Units 12/14/2020 Creatinine POC 0.7 - 1.3 mg/dL 0.9 ASSESSMENT/PLAN: 55 y.o.male with history of right lower lobe lobe to intermediate grade neuroendocrine carcinoma status post resection with level 7 positive node in May 2019 who now has marcus recurrence in right paratracheal lymph node. Mr. Kulkarni is being seen for palliative radiation therapy to the right par atracheal node. Dr. Jacob Flynn discussed with the patient that the workup to date was diagnostic of biopsy proven metastatic neuroendocrine (low to intermediate grade) marcus recurrence in the mediastinum. An alternative to surgery and observation for marcus recurrence would be fractionated external beam radiation radiation therapy. He reviewed the logistics of CT and/or MRI simulation and delivery of the treatments themselves. He reviewed acute and chronic toxicities associated with thoracic radiation which could include but would not be limited to fatigue, skin irritation and breakdown, possible permanent skin changed including discoloration, cough, shortness of breath, rib fracture, chronic chest wall pain, lung inflammation which could require treatment with steroids, and scar tissue formation. After all questions were answered to the patient???s satisfaction, an informed consent document wassigned. Simulation will be scheduled. The patient was encouraged to contact our office with any questions or concerns that might arise at any time. Dr. Flynn recommends the pancreatic tail lesion to be followed with subsequent future imaging. RAD ONC PAIN PLAN: The patient is not currently having any pain that requires changes in pain management. I examined the patient and reviewed the information, images and plan with Dr. Jacob Flynn. VENU Ellison- Adult Nurse Practitioner Radiation Oncology Cosigned by Jacob Flynn MD at 01/16/2021 10:44 PM CDT Associated attestation - Jacob Flynn MD - 01/16/2021 10:44 PM CDT I saw and examined Kwaku Kulkarni with VENU Ellison, and agree with below. Mr. Kwaku Vazquez has a history of atypical neuroendocrine ca s/p right lower lobectomy and node dissectionnow with a biopsy proven paratracheal node recurrence. He is a candidate for hypofx RT alone. Risks, benefits, and alteratives were discussed with the patient in detail, who indicates understanding and agrees to proceed. Consent was obtained in my presence. Geovany Flynn MD Professor Director, Clinical Trials Chief, Thoracic Radiation Oncology and Stereotactic Body Radiotherapy Department of Radiation Oncology documented in this encounter Nursing Notes * Ayala Martinez RN - 01/08/2021 10:00 AM CDT Pt prefers mid morning appointments. 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 Has not taken any yet. 03/28/2020 01/16/2021 albuterol HFA (PROVENTIL HFA,VENTOLIN HFA,PROAIR HFA) 90 mcg/actuation inhaler INL 2 PFS PO Q 4 H PRN 07/27/201905/2020 documented as of this encounter Care Teams Poultry And Fish Butcher Relationship Specialty Start Date End Date Clara Stanley PA [address] [place] [id number] PCP - General Nurse Practitioner 04/05/19 Jasper Canchola MD [address] [place] [address] Surgeon Thoracic Surgery 05/11/19 Alexis Lopez MD [address] [facility] [address] [address] Hog Feeder Pulmonary Disease 05/11/19 Kip Del Rio MD [address] [facility] [address] [place] [address] Medical Oncologist/Ship'S Surveyor Hematology and Oncology 05/11/19 Jacob Flynn MD [address] [facility] [address] [place] [address] Radiation Oncologist Radiation Oncology 05/25/19 documented as of this encounter
--- OUTSIDE RECORDS SUMMARY | 2024-03-02 03:45 | XMS_ITS | Encounter Summary ---
Author Organization [facility] Healthcare Address [address] [place] [address] Care Team Providers Care Almond Roaster Name Role Phone Clara Stanley Primary Care Provider + Jasper Canchola MD Unavailable Alexis Lopez MD Unavailable [phone] Kip Del Rio MD Unavailable Jacob Flynn MD Unavailable [phone] Encounter Details Date Type Department Care Team (Late st Contact Info) Description 01/18/2021 11:00 AM CDT Treatment [facility] Radiation Oncology [facility] Advanced Medicine [facility] [place] [address] Jacob Flynn MD [facility] [address] [place] [address] Social History Tobacco Use Types Packs/Day Years [...] on file Legal Sex Male 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 Gender Identity Not on file Sexual Orientation Straight 09/22/2019 8: 21 PM CDT 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 on file Not on file documented as of this encounter Plan of Treatment Not on file documented as of this encounter Visit Diagnoses Not on filedocumented in this encounter Care Teams Almond Roaster Relationship Specialty Start Date End Date Clara Stanley PA [address] [place] [address] PCP - General Nurse Practitioner 04/05/19 Jasper Canchola MD [address] [place] [address] Surgeon Thoracic Surgery 05/11/19 [place] [address] [place] [address] Used Car Sales Manager Pulmonary Disease 05/11/19 Kip Del Rio MD [address] [facility] [address] [place] [address] Medical Oncologist/Business Applications Analyst Hematology and Oncology 05/11/19 Jacob Flynn MD [address] [facility] [address] [place] [address] Radiation Oncologist Radiation Oncology 05/25/19 documented as of this encounter
--- OUTSIDE RECORDS SUMMARY | 2024-03-02 03:45 | XMS_ITS | Encounter Summary ---
Author Organization [facility] Address [address] [place] [address] Care Team Providers Care Contact Worker Name Role Phone Clara Stanley Primary Care Provider + Jasper Canchola MD Unavailable Alexis Lopez MD Unavailable [phone] Kip Del Rio MD Unavailable Jacob Flynn MD Unavailable Reason for Referral * Pulmonology (Routine) - Closed Specialty Diagnoses / Procedures Referred By Contrebekah t Referred To Contact Pulmonology Diagnoses LAD (lymphadenopathy) Procedures Bronchoscopy -[facility] Interventional Pulm; Bronchoscopy, EBUS LINEAR Noah Dominguez Chi, MD [address] [facility] [address] [place] [address] Phone: tel: fax: [facility] [address] [address] Phone: tel: fax: Referral ID Status Reason Start Date Expiration Date Visits Re quested Visits Authorized [id number] Closed 12/14/2020 01/13/2022 1 1 Reason for Visit * Reason Comments Bronchoscopy * Pulmonology (Routine) - Closed Specialty Diagnoses / Procedures Referred By Contac t Referred To Contact Pulmonology Diagnoses LAD (lymphadenopathy) Procedures Bronchoscopy -[facility] Interventional Pulm; Bronchoscopy, EBUS LINEAR Noah Dominguez Chi, MD [address] [place] [address] Phone: tel: fax: [facility] [address] [place] [address] Phone: tel: fax: Referral ID Status Reason Start Date Expiration Date Visits Re quested Visits Authorized [id number] Closed 12/14/2020 01/13/2022 1 1 Encounter Details Date Type Department Care Team (Latest Contact Info) Description 12/24/2020 7:20 AM CDT - 12/24/2020 9:17 AM CDT Hospital Encounter [facility] Interventional Pulmonology [address] [place] [address] Noah Dominguez Chi, MD [address] [place] [address] LAD (lymphadenopathy) Discharge Disposition: Discharge to home or self [...] on file 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 Gender Identity Not on file Sexual Orientation Straight 09/22/2019 8: 21 PM CDT documented as of this encounter Last Filed Vital Signs Vital Sign Reading Time Taken Comments Blood Pressure 125/72 12/24/2020 9:15 AM CDT Pulse 78 12/24/2020 9:15 AM CDT Temperature 36.5 ??C (97.7 ??F) 12/24/2020 7:53 AM CD T Respiratory Rate 13 12/24/2020 9:15 AM CDT Oxygen Saturation 93% 12/24/2020 9:15 AM CDT Inhaled Oxygen Concentration - - Weight 157.9 kg (348 lb) 12/24/2020 7:53 AM CDT Height 190.5 cm (6' 3 ) 12/24/2020 7:53 AM CDT Body Mass Index 43.5 12/24/2020 7:53 AM CDT documented in this encounter Discharge Diagnoses Diagnosis 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 The sedation medicine you received today can stay in your body for up to 24 hours You may have: ?? Short-term memory loss, such as loss of memory from the procedure or things that happen shortly afterwards. ?? Feeling drowsy or sleepy ?? Feeling dizzy or lightheaded ?? Nausea (sick to your stomach) ?? Headache For the next 24 hours after your procedure ?? Do NOT drive a car or operate heavy machinery. You will need someone to drive you home today ?? Do NOT drink alcohol ?? Do NOT smoke ?? Do NOT make important decisions or sign any legal papers ?? Do NOT stay by yourself. Stay with a responsible adult tonight ?? Do NOT bathe or shower until tomorrow ?? Be careful when standing, walking, changing positions, or using steps ?? Slowly ease into regular activities. You may resume work or exercise as directed by your doctor. ?? When you start eating, try liquids first and slowly progress to a light meal ?? You may resume your current medications as diected by your doctor The following symptoms are common 24 to 48 hours after a bronchoscopy ??? You may cough up small amounts of dark red, old blood ??? Your throat may be sore for 2 or more days. Try soups, Jell-O, and ice-cream until it feels better ??? You may develop a fever. Use Tylenol (acetaminophen) as directed on the bottle or as directed by your primary care provider for fever. Please call the [facility] Interventional Pulmonology Department at , Thursday through Thursday 8:30am to 4:30pm Or, go to the nearest emergemcy department if you have. ??? Fever that lasts more than 2 days or is over 100 degrees Fahrenheit ??? Any shortness of breath ??? Chest pain or tightness in the chest ??? Coughing up large amounts of blood meaning more than 1-2 teaspoons If you had fluid or tissue samples sent today for testing, you should receive a call from our medical team about your results. Please call if you have not been contacted within 5 business days. If this is an emergency, call [phone]. If you are unable to speak to the staff during normal business hours, please call and ask for the Director Risk quality controller. I have received and understand these instructions and my questions were answered. / / ____: Date Time Signature of Patient OR Person Authorized to Sign/Relationship Printed Name / / ____: Date Time Nurse Signature Printed Name documented in this encounter Medications at Time [...] documented in this encounter Progress Notes * Lizbeth Boucher RN - 12/24/2020 8:30 AM CDT patient contacted at 1620 for a diagnostic at 0830 on 12/24/20. I asked the patient the following screening questions prior to the pre-procedure instructions: 1. In the past 10 days have you had any of the following symptoms? Fever, Cough, Shortness of Breath, Sore Throat, Loss of Taste and/or Smell, Diarrhea, or Vomiting? No 2. Have you had a known exposure to someone with coronavirus within the past 10 days? No 3. Do you live or work in a congregate living facility such as a [facility] [place] [facility] or [facility] living? No 4. Are you currently waiting on the results of a COVID test? No Pre-procedure instructions: 1. The patient stated that they unsure if they received their pre-procedure instructions in the mail, email, or MyChart. 2. Instructed the patient to arrive at [facility] Admitting/Registration Office [facility] at 0730 on 12/24/20 3. If the patient uses home oxygen, even if they only use oxygen during sleep periods, they are to bring enough home oxygen supply to get themselves to and from [facility]. 4. Patient stated that they do not use a CPAP or BIPAP device. Instructed patient, if they use a CPAP or BIPAP, to bring in their device or bring documentation of their CPAP/BIPAP settings with them to their appointment. 5. The patient will need a local driver or will need to arrange their own transportation home after theirprocedure. Emphasized that departmental staff will confirm transportation prior to the procedure. Further emphasized that the patient will not be able to drive themselves home after their procedure if they receive any sedation and/or opioids. Instructed patient/family that if a transportation service is used for this appointment that the patient/family need to provide the Interventional Pulmonology staff with the name and the phone number of the transportation service used. 6. Confirmed that the patient does have some one who will stay with them for at least 24 hours postdischarge. Emphasized that, for their safety, the patient may have to be admitted for 23 hours postprocedure if they do not have some one who will stay with them for at least 24 hours post discharge. 7. The patient will need to bring a list of their current home medications including all herbal andall non-prescription/over the counter medications. 8. Confirmed that the patient does not take anticoagulants. 9. Patient stated that they are not diabetic. If insulin dependent diabetic, the patient may take 1/2 of their PM insulin dose the evening prior to their procedure. If non-insulin dependent, they areto hold their oral diabetic medications the day of their procedure. The patient is also to check their finger stick blood glucose the morning of their procedure if they are diabetic. 10. Confirmed that the patient and their family are familiar on the location of the [facility] Admitting Office for pre-procedure registration and any lab work that may be ordered. Discussed that the patient is not to go to the [facility] for their appointment. Confirmed they are aware of what time to arrive at the [facility] Admitting Office. 11. I reviewed the following [facility] Visitor Policy: A. Each patient is only allowed one visitor for an outpatient procedure/appointment. B. Visitors will be screened upon arrival to the hospital with the aforementioned coronavirus questions. Any yes answer to questions will result in the visitor being denied entrance to this facility. C. All visitors are expected to remain in the Surgical Registration and Waiting Area the entire time they are waiting on the patient and will not be allowed in the procedure area. D. All visitors are expected to follow posted hand hygeine protocols. E. Instructed patient that effective 07/20/19 all patients and visitors must wear a face covering upon entrance to [facility]. If you or your visitors do not have a face covering upon arrival, one will be provided during the screening process. F. patient verbalized understanding of visitor policy and verbalized understanding that failure to comply with aforementioned policy or if their visitor/family does not pass the coronavirus screeningquestions, the visitor/family will be asked to leave the hospital immediately. 12 patient verbalized understanding that they will call and notify us if they are having any fever, cough, shortness of breath, sore throat, lost of taste or smell, diarrhea, vomiting,or are waiting on a COVID test result between the time of this call and the time of their procedure. 13. patient verbalized confirmation and understanding of above instructions & I answered all questions from the patient/family. 14. Call ended 1628 documented in this encounter Procedure Notes * Noah Dominguez Chi, MD - 12/24/2020 8:57 AM CDTAssociated Order(s): BRONCHOSCOPY [facility] Interventional Pulmonary Patient Name: Mp Bullock Procedure Date: 12/24/2020 8:57 AM Date of : 1965 Admit Type: Outpatient Age: 55 Room: ROOM 1 Gender: Male Note Status: Finalized Procedure: Bronchoscopy EBUS-TBNA Indications: Mediastinal adenopathy Providers: Noah Dominguez M.D. Referring MD: Jasper Canchola M.D. Medicines: Lidocaine 1% applied to cords 10 mL, Lidocaine 1% subglottic space 20 mL, Midazolam 9 mg IV, Fentanyl 225 mcg IV Complications: No immediate complications Procedure: Pre-Anesthesia Assessment: - The risks and benefits of the procedure and the sedation options and risks were discussed with the patient. All questions were answered and informed consent was obtained. After obtaining informed consent, the Bronchoscope was introduced through the mouth, via laryngeal mask airway and advanced to the tracheobronchial tree of both lungs. The procedure was accomplished without difficulty. The patient tolerated the procedure well. Estimated Blood Loss: Estimated blood loss was minimal. Findings: 1. Airway inspection The laryngeal mask airway is in good position. The vocal cords appear normal. The subglottic space is normal. The trachea is of normal caliber. The theresa is sharp. The tracheobronchial tree was examined to at least the first subsegmental level. Bronchial mucosa and anatomy are normal; there are no endobronchial lesions, and no secretions. Post-surgical changes were noted with a right lower lobe stump that was intact. 2. EBUS-TBNA The linear array EBUS scope was introduced through the mouth to the right paratracheal 2R lymph node station. A lymph node was identified using EBUS at this station. Transbronchial needle aspiration using a 22 gauge aspiration needle times 5 was performed at the 2R station under continuous endobronchial ultrasound guidance. Impression: - EBUS-TBNA was performed from the right paratracheal lymph node Recommendation: - Await cytology results. Attending Participation: I was present and participated. Electronically signed by Dr. Dominguez Noah Dominguez M.D. 12/24/2020 9:14:12 AM Number of Addenda: 0 Note Initiated On: 12/24/2020 8:57 AM documented in this encounter Nursing Notes * Lizbeth Boucher RN - 12/24/2020 9:52 AM CDT Portable chest xray done. No pneumothorax noted per Short * Lizbeth Boucher RN - 12/24/2020 9:20 AM CDT Post procedure report received from Carlos Banegas RN. Awaiting CXR 12/24/20918 Monitor Vital Signs and Modified Dwayne - With Reversal every 10 minutes from last antagonist med X 60 minutes - Without Reversal every 10 minutes X 30 minutes Temp 36.4 ??C (97.5 ??F) Pulse 77 Resp 20 BP 122/75 SpO2 94 % O2 Flow Rate (L/min) 2 L/min O2 Del Method Nasal cannula Modified Dwayne Activity 2 Respiration 2 Circulation 2 Consciousness 2 Oxygen Saturation 1 Modified Dwayne Score 9 Pain Assessment Pain Score 0 - No pain Cardiac Cardiac Rhythm NSR * Marjan Banegas RN - 12/24/2020 9:15 AM CDT Bronchoscopy with biopsy to Lymph node #2R. Pt tolerated procedure well. See provider notes and flowsheets for procedure details. Report to Lizbeth Boucher RN in pre/post procedure area. Awaiting PCXR. LMA in: 08:49, LMA out: 09:08 Sedation given: Versed 9mg, Fentanyl 225mcg Fluids given: 200ml NS documented in this encounter Miscellaneous Notes * Pre-Sedation Documentation - Yakov Gupta MD - 12/24/2020 8:30 AM CDT Pre-Procedure/Pre-Sedation Assessment Planned Procedure: Bronchoscopy Reason for Procedure: Lung Mass/LAD The patient has been NPO for the appropriate amount of time. Past medical history per consultation/office notes. Prescribed use of blood thinner: NO Prescribed use of antiplatelet agent: NO History of thrombocytopenia or bleeding disorder: NO BP 133/74 (BP Location: Left arm) Pulse 79 Temp 36.5 ??C (97.7 ??F) (Temporal) Ht 190.5 cm (6' 3 ) Wt (!) 157.9 kg (348 lb) SpO2 95% BMI 43.50 kg/m?? Physical Exam: General: No acute distress Airway Mallampati Score: 3 Constitutional: no fever/chills Cardiovascular: RRR, no M/R/G Pulmonary/Chest: CTAB Labs (if pertinent). 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 Patient has tolerated sedation in the past without complication. Post Procedure Monitoring Plan: Recovery * Plan of Care - Lizbeth Boucher RN - 12/24/2020 8:30 AM CDT Problem: Lack of Knowledge: Goal: Knowledge of diagnostic tests will improve Outcome: Adequate for Discharge Goal: Ability to verbalize follow-up procedures will improve Outcome: Adequate for Discharge Goals: documented in this encounter Plan of Treatment Not on file documented as of this encounter Procedures Procedure Name Priority Date/Time Associated Diagnosis Comments XR CHEST 1 VIEW IP Routine 12/24/2020 9:46 AM CDT BRONCHOSCOPY Routine 12/24/2020 8:57 AM CDT LAD (lymphadenopathy) CYTOLOGY Routine 12/24/2020 8:45 AM CDT documented in this encounter Results [...] MD IMG XR PROCEDURES Final Resul t * Bronchoscopy -[facility] Interventional Pulm; Bronchoscopy, EBUS LINEAR (12/24/2020 8:57 AM CDT) Anatomical Region Laterality Modality Other Narrative Procedure Note Noah Dominguez Chi, MD - 12/24/2020 8:57 AM CDT [facility] Interventional Pulmonary Patient Name: Mp Bullock Procedure Date: 12/24/2020 8:57 AM Date of : 1965 Admit Type: Outpatient Age: 55 Room: ROOM 1 Gender: Male Note Status: Finalized Procedure: Bronchoscopy EBUS-TBNA Indications: Mediastinal adenopathy Providers: Noah Dominguez M.D. Referring MD: Jasper Canchola M.D. Medicines: Lidocaine 1% applied to cords 10 mL, Lidocaine 1% subglottic space 20 mL, Midazolam 9 mg IV, Fentanyl 225 mcg IV Complications: No immediate complications Procedure: Pre-Anesthesia Assessment: - The risks and benefits of the procedure and the sedation options and risks were discussed with the patient. All questions were answered and informed consent was obtained. After obtaining informed consent, the Bronchoscopewas introduced through the mouth, via laryngeal mask airway and advanced to the tracheobronchial tree of both lungs. The procedure was accomplished without difficulty. The patient tolerated the procedurewell. Estimated Blood Loss: Estimated blood loss was minimal. Findings: 1. Airway inspection The laryngeal mask airway is in good position. The vocal cords appear normal. The subglottic space is normal. The trachea is of normal caliber. The theresa is sharp. The tracheobronchial tree was examinedto at least the first subsegmental level. Bronchial mucosa and anatomyare normal; there are no endobronchial lesions, and no secretions. Post-surgical changes were noted with a right lower lobe stump thatwas intact. 2. EBUS-TBNA The linear array EBUS scope was introduced through the mouth to the right paratracheal 2R lymph node station. A lymph node was identified using EBUS at this station. Transbronchial needle aspiration using a 22 gauge aspiration needle times 5 was performed at the 2R station under continuousendobronchial ultrasound guidance. Impression: - EBUS-TBNA was performed from the rightparatracheal lymph node Recommendation: - Await cytology results. Attending Participation: I was present and participated. Electronically signed by Dr. Dominguez Noah Dominguez M.D. 12/24/2020 9:14:12 AM Number of Addenda: 0 Note Initiated On: 12/24/2020 8:57 AM us Noah Dominguez MD BRONCH ORDERABLES Final Re sult * Cytology (12/24/2020 8:45 AM CDT) Fluid (Lymph Node (Cytology)) 12/24/2020 8:45 AM CDT 12/24/2020 9:18 AM CDT Narrative PATHOLOGY [facility] - 12/25/2020 11:22 AM CDT EPIC results best viewed via link to PDF [facility] [place] [address] Note to Patients: This report may contain [...] can answer questions and explain the details. CYTOPATHOLOGY REPORT FINAL Patient Name: ?? MP BULLOCK Gender: ??M : ??1965 (Age: 55) Address: ??[address] [place] [address] Hospital #: ??[id number] Taken:12/24/2020 Received:12/24/2020 Reported: 12/25/2020 Patient Type: [facility] ?? Service: Pulmonary Location: [facility] Physician(s): ??Noah Dominguez M.D. FINAL DIAGNOSIS A. ??Lymph node, 2R, endobronchial ultrasound-guided fine needle aspiration: ? - Metastatic neuroendocrine carcinoma, consistent with the patient's known primary ? Comments The cell block confirms the diagnosis. axa/12/25/2020 10:10 By this signature, I attest that the above diagnosis is based upon my personal examination of the slides(and/or other material indicated in the diagnosis). Joe Jim M.D. Report Electronically Reviewed and Signed Out By ??Joe Jim M.D. 12/25/2020 11:22:32 Megha Johnson, CT(ASCP) Gross Description A. ??Lymph node, 2R, endobronchial ultrasound guided fine needle aspiration: ??2 Pap stained smear(s) and 2 Diff-Quik stained smear(s). ??1 cell block prepared from needle rinse tube. ??Aspirated by clinician. ??(cy) Clinical Diagnosis and History 55 yo male with history of resected neuroendocrine tumor of the lung now with mediastinal LAD Immediate Evaluation A. ??Lymph node, 2R, endobronchial ultrasound guided fine needle aspiration: ?? Evaluation Episode 1 Overall Adequacy: Satisfactory for interpretation Total Evaluation Episodes: 1 Preliminary Diagnosis: lesional material favor neuroendocrine Joe Jim M.D., Ph.D. 12/24/2020 REPORT IMAGES AND SCANNED DOCUMENTS, IF INCLUDED, ONLY VIEWABLE IN PDF VERSION OF REPORT The performance characteristics of some immunohistochemical stains, in-situ hybridization and fluorescence in-situ hybridization tests and immunophenotyping by flow cytometry cited in this report (if any) were determined by the Surgical Pathology and Flow Cytometry Departments at [facility] as part of an ongoing quality lead program and in compliance with federally mandated [...] following disclaimer be attached to the report: ??This test was developed and its performance characteristics determined by the Surgical Pathology and Flow Cytometry Departments of [facility]. ??It has not been cleared or approved by the U. S. Food and Drug Administration. Noah Dominguez MD LAB CYTOLOGY ORDERABLES Fi nal Result PATHOLOGY [facility] 3rd Floor [place], [place] [phone] documented in this encounter Visit Diagnoses Diagnosis LAD (lymphadenopathy) documented in this encounter Administered Medications Inactive Administered Medications - up to 3 most recent administrations Medication Order MAR Action Action Date Dose Rate Site fentaNYL (SUBLIMAZE) preservative free injection 50 mcg 50 mcg, intravenous, Every 5 min PRN, bronchoscopy, Starting on 12/24/20 at 0821 Given 12/24/2020 9:03 AM CDT 25 mcg Given 12/24/2020 8:47 AM CDT 50 mcg Given 12/24/2020 8:43 AM CDT 50 mcg midazolam (VERSED) 1 mg/mL injection 2 mg 2 mg, intravenous, Every 5 min PRN, sedation, Starting on Thu12/24/20 at 0821 Given 12/24/2020 9:03 AM CDT 1 mg Given 12/24/2020 8:47 AM CDT 2 mg Given 12/24/2020 8:43 AM CDT 2 mg sodium chloride 0.9% infusion 50 mL/hr, intravenous, Continuous, Starting on Thu12/24/20 at 0900 New Bag 12/24/2020 8:30 AM CDT 50 mL/hr 50 mL/hr documented in this encounter Care Teams Contact Worker Relationship Specialty Start Date End Date Clara Stanley PA [address] [place] [id number] PCP - General Nurse Practitioner 04/05/19 Jasper Canchola MD [address] [place] [address] Surgeon Thoracic Surgery 05/11/19 Alexis Lopez MD [address] [facility] [address] [address] Video Tape Editor Pulmonary Disease 05/11/19 Kip Del Rio MD [address] [facility] [address] [place] [address] Medical Oncologist/[employer]alt Liqu[employer] Sales Supervisor Hematology and Oncology 05/11/19 Jacob Flynn MD [address] [facility] [address] [place] [address] Radiation Oncologist Radiation Oncology 05/25/19 documented as of this encounter
--- OUTSIDE RECORDS SUMMARY | 2024-03-02 03:45 | XMS_ITS | Encounter Summary ---
Author Organization 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 on file Not on file documented as of this encounter Plan of Treatment Not on file documented as of this encounter Procedures Procedure Name Priority Date/Time Associated Diagnosis Comments RAD ONC ARIA SESSION SUMMARY 02/01/2021 8:46 AM ASSISTED LIVING CARE MANAGER documented in this encounter Results * RAD ONC ARIA SESSION SUMMARY (02/01/2021 8:46 AM ASSISTED LIVING CARE MANAGER) Course Name [id number] ARIA Course Plan Date 01/18/2021 1:45 PM ARIA Elapsed Days 1 ARIA Treatment Start Date 01/31/2021 ARIA Treatment Site lung dpv ARIA Dose Given To Date (cGy) 800 ARIA Session Dosage Given (cGy) 400 ARIA Plan ID MEDIASTINUM ARIA Fractions Treated 2 ARIA Prescribed Dose Per Fraction (cGy) 400 ARIA Prescribed Total Dose (cGy) 6,000 ARIA 02/01/2021 8:46 AM ASSISTED LIVING CARE MANAGER us Not In File Miscellaneous RADIATION ONCOLOGY ORD ERABLES Final Result ARIA documented in this encounter Visit Diagnoses Not on filedocumented in this encounter Care Teams Career Coordinator Relationship Specialty Start Date End Date Clara Stanley PA [address] [place] [address] PCP - General Nurse Practitioner 04/05/19 Jasper Canchola MD [address] [place] [address] Surgeon Thoracic Surgery 05/11/19 Alexis Lopez MD [address] [facility] [address] [place] [address] [place] [address] Cementer Hand Pulmonary Disease 05/11/19 Kip Del Rio MD [address] [facility] [address] [place] [address] Medical Oncologist/Medical Auditor Hematology and Oncology 05/11/19 Jacob Flynn MD [address] [facility] [address] [place] [address] Radiation Oncologist Radiation Oncology 05/25/19 documented as of this encounter
--- OUTSIDE RECORDS SUMMARY | 2024-03-02 03:45 | XMS_ITS | Encounter Summary ---
Author Organization [facility] Address [address] [facility] [address] [place] [address] Phone Care Team Providers Care Chain Maker Machine Name Role Phone Lizeth Clara ACUNA Primary Care Provider + Jasper Canchola MD Unavailable Alexis Lopez MD Unavailable Kip Del Rio MD Unavailable [phone] Jacob Flynn MD Unavailable [phone] Encounter Details Date Type Department Care Team (Latest Contact Info) Description 12/14/2020 8:45 AM CDT Office Visit [facility] Surgery [address] [facility] Advanced Medicine 8th [place] [address] [place] [id number] Jasper Canchola MD [address] [facility] [id number] [place] [address] 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) Social History Tobacco [...] on file Legal Sex Male 1:17 AM TRACER POWDER BLENDER Gender Identity Not on file Sexual Orientation Straight 09/22/2019 8: 21 PM CDT documented as of this encounter Last Filed Vital Signs Vital Sign Reading Time Taken Comments Blood Pressure 167/80 12/14/2020 8:56 AM CDT Pulse 70 12/14/2020 8:56 AM CDT Temperature 36.6 ??C (97.8 ??F) 12/14/2020 8:56 AM CD T Respiratory Rate 18 12/14/2020 8:56 AM CDT Oxygen Saturation 98% 12/14/2020 8:56 AM CDT Inhaled Oxygen Concentration - - Weight 162.1 kg (357 lb 6.4 oz) 12/14/2020 8:56 AM CDT Height 190.5 cm (6' 3 ) 12/14/2020 8:56 AM CDT Body Mass Index 44.67 12/14/2020 8:56 AM CDT documented in this encounter Progress Notes * Jasper Canchola MD - 12/14/2020 8:45 AM CDT [facility] Thoracic Surgery Note 12/14/2020 KALPANA Lema 1965 Dear KALPANA Lema: I was pleased to see Kwaku Kulkarni in follow-up on December 14, 2020. This patient is now approximately 18 months following right lower lobectomy and mediastinal lymph node dissection for excision of a T2 N2 carcinoid tumor. The patient is doing well. However recent imaging has demonstrated an enlarged right paratracheal lymph node. Follow-up CT scan was performed on December 14. This demonstrates no significant change in the size of this right paratracheal lymph node, although it is biggerthan it was the early postoperative. There is obvious concern that this might represent a focus of marcus metastatic disease. I have taken the liberty of conferring with my interventional Pulmonary colleagues regarding the possibility of endobronchial ultrasound-guided needle aspiration biopsy. The patient and his family are relieved to pursue the biopsy option. We will make appropriate scheduling arrangements and subsequent follow- up after we have the results of this forthcoming endobronchial ultrasound biopsy. Thank you very much. Yours sincerely, Sary Canchola MD Blacksmith Supervisor completed by using [employer] Direct speaking software, therefore, transcriptionvariances may occur. ER POWDER BLENDER documented in this encounter Plan of Treatment Not on file documented as of this encounter Visit Diagnoses Diagnosis High grade neuroendocrine carcinoma (HCC)- Primary documented in this encounter Care Teams Chain Maker Machine Relationship Specialty Start Date End Date Clara Stanley PA [address] [place] [address] PCP - General Nurse Practitioner 04/05/19 Jasper Canchola MD [address] [place] [address] Surgeon Thoracic Surgery 05/11/19 Alexis Lopez MD [address] [address] Laborer Concrete Plant Pulmonary Disease 05/11/19 Kip Del Rio MD [address] [facility] [address] [place], [place] [id number] Medical Oncologist/Family Coach Hematology and Oncology 05/11/19 Jacob Flynn MD [address] [facility] [address] LL [address] [place], [place] [id number] Radiation Oncologist Radiation Oncology 05/25/19 documented as of this encounter
--- OUTSIDE RECORDS SUMMARY | 2024-03-02 03:45 | XMS_ITS | Encounter Summary ---
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 on file Not on file documented as of this encounter Plan of Treatment Not on file documented as of this encounter Procedures Procedure Name Priority Date/Time Associated Diagnosis Comments RAD ONC ARIA SESSION SUMMARY 02/04/2021 1:45 PM RADIOTELEPHONE OPERATOR documented in this encounter Results * RAD ONC ARIA SESSION SUMMARY (02/04/2021 1:45 PM RADIOTELEPHONE OPERATOR) Course Name [id number] ARIA Course Plan Date 01/18/2021 1:45 PM ARIA Elapsed Days 4 ARIA Treatment Start Date 01/31/2021 ARIA Treatment Site lung dpv ARIA Dose Given To Date (cGy) 1,600 ARIA Session Dosage Given (cGy) 400 ARIA Plan ID MEDIASTINUM ARIA Fractions Treated 4 ARIA Prescribed Dose Per Fraction (cGy) 400 ARIA Prescribed Total Dose (cGy) 6,000 ARIA 02/04/2021 1:45 PM RADIOTELEPHONE OPERATOR us Not In File Miscellaneous RADIATION ONCOLOGY ORD ERABLES Final Result ARIA documented in this encounter Visit Diagnoses Not on filedocumented in this encounter Care Teams Jacquard Plate Maker Relationship Specialty Start Date End Date Clara Stanley PA [address] [place] [address] PCP - General Nurse Practitioner 04/05/19 Jasper Canchola MD [address] [place] [address] Surgeon Thoracic Surgery 05/11/19 Alexis Lopez MD [address] [facility] [address] [address] Rag Cutting Machine Operator Pulmonary Disease 05/11/19 Kip Del Rio MD [address] [facility] [address] [place] [address] Medical Oncologist/Cargo Station Worker Hematology and Oncology 05/11/19 Jacob Flynn MD [address] [facility] # [address] LL [address] [place] [address] Radiation Oncologist Radiation Oncology 05/25/19 documented as of this encounter
--- OUTSIDE RECORDS SUMMARY | 2024-03-02 03:45 | XMS_ITS | Encounter Summary ---
Author Organization [facility] Address [address] [place] [address] Care Team Providers Care Marine Fire Fighter Name Role Phone Clara Stanley Primary Care Provider + Jasper Canchola MD Unavailable Alexis Lopez MD Unavailable [phone] Kip Del Rio MD Unavailable Jacob Flynn MD Unavailable Reason for Referral * MRI/CAT/PET Scan (Routine) - Closed Specialty Diagnoses / Procedures [facility] Referred To Contact Radiology Diagnoses High grade neuroendocrine carcinoma (HCC) Procedures CT Chest W Contrast Jasper Canchola MD Phone: tel: fax: [address] [address] Referral ID Status Reason Start Date Expiration Date Visits Re quested Visits Authorized [id number] Closed 12/04/2020 03/04/2021 1 1 Reason for Visit * MRI/CAT/PET Scan (Routine) - Closed Specialty Diagnoses / Procedures Referred By Contac t Referred To Contact Radiology Diagnoses High grade neuroendocrine carcinoma (HCC) Procedures CT Chest W Contrast Jasper Canchola MD Phone: tel: fax: [facility] [address] [facility] [place] [address] Referral ID Status Reason Start Date Expiration Date Visits Re quested Visits Authorized [id number] Closed 12/04/2020 03/04/2021 1 1 Encounter Details Date Type Department Care Team (Latest Contact Info) Description 12/14/2020 7:56 AM CDT - 12/14/2020 11:59 PM CDT Hospital Encounter [facility] [address] [place] [address] Jasper Canchola MD [id number] [place] [address] High grade neuroendocrine carcinoma (CMS/HCC) (HCC) Discharge Disposition: Discharge to home or self care Social History Tobacco Use Types Packs/Day Years Used Date Smoking Tobacco: Never Smokeless Tobacco: Never Alcohol Use Standard Drinks/Week Comments Yes 2 (1 standard drink = 0.6 oz pur e alcohol) Sex and Gender Information Value Date Recorded Sex Assigned at Not on file Legal Sex Male 1:17 AM LAND DEPARTMENT HEAD Gender Identity Not on file Sexual Orientation [...] Priority Date/Time Associated Diagnosis Comments CT CHEST W CONTRAST Schedule Routine, Read Routine (OP Routine) 12/14/2020 8:31 AM CDT High grade neuroendocrine carcinoma (CMS/HCC) (HCC) POCT CREATININE - DEVICE Routine 12/14/2020 8:10 AM CDT documented in this encounter Results * CT Chest W Contrast (12/14/2020 8:31 AM CDT) Anatomical Region Laterality Modality Body N/A Computed Tomogra phy 12/14/2020 8:58 AM CDT Impressions 12/14/2020 5:23 PM CDT 1. ??Continued slight increase in size of mildly enlarged high right paratracheal lymph node measuring 1.3 cm in short axis, again suspicious for metastatic disease. 2. ??Stable lung nodules measuring up to 5 mm and stable postsurgical change from right lower lobectomy. Electronically signed by: Maye Jung MD Narrative 12/14/2020 5:23 PM CDT EXAMINATION: ??Computed tomography of the chest with intravenous contrast HISTORY: 55-year-old male with history of neuroendocrine cell carcinoma status post right lower lobectomy and mediastinal lymph node dissection on 05/26/2019 TECHNIQUE: ??Transaxial computed tomographic images of the chest were obtained with intravenous contrast according to the standard protocol after the uneventful administration of 125 mL Opti-Ray 350 intravenous contrast. COMPARISON: CT dated 09/19/2020 FINDINGS: ?? Central airways are patent. There is again postsurgical change from right lower lobectomy with stable right hemidiaphragm elevation, right-sided pleural thickening and trace right-sided pleural effusion. No new consolidation or pneumothorax. Few nodules in the bilateral lungs are stable compared to CT dated back to 09/23/2019. For example, there are 4 mm nodule in the right middle lobe (table position -1457.6), 5 mm subpleural nodule in the right middle lobe (table position -1451.6) and 2 mm nodule in the left lower lobe (table position -1421.6). No new suspicious nodule. Mildly enlarged right paratracheal lymph nodes has slightly increased in size measuring 1.3 cm from 1 cm in short axis on CT dated 09/19/[address] 0[address] dated 09/23/19. Mildly enlarged right hilar lymph node is unchanged compared to CT dated 03/28/2020. No axillary lymphadenopathy. Thyroid gland and esophagus are grossly unremarkable. Thoracic aorta and pulmonary artery are normal in size. The heart is normal in size and without significant pericardial effusion. No acute finding in the visualized subdiaphragmatic structures. There are bilateral gynecomastia. No acute osseous finding or suspicious focal osseous lesion. Post thoracotomy changes are again seen along the right posterior ribs. Multilevel degenerative changes of the thoracic spine. Procedure Note Myae Jung MD - 12/14/2020 EXAMINATION: Computed tomography of the chest with intravenous contrast HISTORY: 55-year-old male with history of neuroendocrine cell carcinoma status post right lower lobectomy and mediastinal lymph node dissection on 05/26/2019 TECHNIQUE: Transaxial computed tomographic images of the chest were obtained with intravenous contrast according to the standard protocol after the uneventful administration of 125 mL Opti-Ray 350 intravenous contrast. COMPARISON: CT dated 09/19/2020 FINDINGS: Central airways are patent. There is again postsurgical change from right lower lobectomy with stable right hemidiaphragm elevation, right-sided pleural thickening and trace right-sided pleural effusion. No new consolidation or pneumothorax. Few nodules in the bilateral lungs are stable compared to CT dated back to 09/23/2019. For example, there are 4 mm nodule in the right middle lobe (table position -1457.6), 5 mm subpleural nodule in the right middle lobe (table position -1451.6) and 2 mm nodule in the left lower lobe (table position -1421.6). No new suspicious nodule. Mildly enlarged right paratracheal lymph nodes has slightly increased in size measuring 1.3 cm from 1 cm in short axis on CT dated 09/19/2020 and 0[address] dated 09/23/19. Mildly enlarged right hilar lymph node is unchanged compared to CT dated 03/28/2020. No axillary lymphadenopathy. Thyroid gland and esophagus are grossly unremarkable. Thoracic aorta and pulmonary artery are normal in size. The heart is normal in size and without significant pericardial effusion. No acute finding in the visualized subdiaphragmatic structures. There are bilateral gynecomastia. No acute osseous finding or suspicious focal osseous lesion. Post thoracotomy changes are again seen along the right posterior ribs. Multilevel degenerative changes of the thoracic spine. IMPRESSION: 1. Continued slight increase in size of mildly enlarged high right paratracheal lymph node measuring 1.3 cm in short axis, again suspicious for metastatic disease. 2. Stable lung nodules measuring up to 5 mm and stable postsurgical change from right lower lobectomy. Electronically signed by: Maye Jung MD Jasper Canchola MD IMG CT PROCEDURES Final R esult * POCT creatinine (12/14/2020 8:10 AM CDT) Creatinine POC 0.9 0.7 - 1.3 mg/dL [facility] Blood 12/14/2020 8:10 AM CDT 12/14/2020 8:10 AM CDT us Jasper Canchola MD LAB POCT ORDERABLES - DEV ICE Final Result [facility] Department of Laboratories [place], [place] [id number] documented in this encounter Visit Diagnoses Diagnosis High grade neuroendocrine carcinoma (HCC) documented in this encounter Administered Medications Inactive Administered Medications - up to 3 most recent administrations Medication Order MAR Action Action Date Dose Rate Site ioversoL (OPTIRAY 350) syringe syringe 125 mL 125 mL, intravenous, Once in imaging, contrast, Starting on Thu12/14/20 at 0831, For 1 dose Contrast Given 12/14/2020 8:32 AM CDT 125 mL documented in this encounter Orders Medications Ordered That Vikram ht Not Have Been Administered Count Last Ordered Date First Ordered Date ioversoL (OPTIRAY 350) syrin ge syringe 125 mL 1 12/14/2020 documented in this encounter Care Teams Marine Fire Fighter Relationship Specialty Start Date End Date Clara Stanley PA [address] [place] [address] PCP - General Nurse Practitioner 04/05/19 Jasper Canchola MD [address] [place] [address] Surgeon Thoracic Surgery 05/11/19 Alexis Lopez MD [address] [address] Lambskin Trimmer Pulmonary Disease 05/11/19 Kip Del Rio MD [address] [place], [place] [id number] Medical Oncologist/Mini Shifter Hematology and Oncology 05/11/19 Jacob Flynn MD [address] [place] [address] Radiation Oncologist Radiation Oncology 05/25/19 documented as of this encounter
--- OUTSIDE RECORDS SUMMARY | 2024-03-02 03:45 | XMS_ITS | Encounter Summary ---
Author Organization [facility] Address [address] [place] [address] Phone Care Team Providers Care Floor Care Specialist Name Role Phone Clara Stanley Primary Care Provider + Jasper Canchola MD Unavailable Alexis Lopez MD Unavailable Kip Del Rio MD Unavailable [phone] Jacob Flynn MD Unavailable [phone] Encounter Details Date Type Department Care Team (Late st Contact Info) Description 12/24/2020 Telephone [facility] Oncology [address] [facility] 7th [place] [address] [place] [address] Yazmin Armstrong, RN Social History Tobacco Use Types Packs/Day [...] on file Legal Sex Male 1:17 AM VOLLEYBALL COMMENTATOR Gender Identity Not on file Sexual Orientation Straight 09/22/2019 8: 21 PM CDT documented as of this encounter Miscellaneous Notes * Telephone Encounter - Yazmin Armstrong RN - 12/24/2020 1:30 PM CDT Justin left a voicemail today stating that Dr. Canchola had told him to call our office to set up anappt with Dr. Del Rio since the biopsy this morning showed cancer. I let Justin know that we are working on this. Biopsy results are still pending. Message sent to Dr. Del Rio to determine appropriate time for appt. Cheri WASTE WATER WORKER stated that we should wait to see pt until after bx results and PET scan results come back. If this plan changes we will notify pt. documented in this encounter Plan of Treatment Not on file documented as of this encounter Visit Diagnoses Not on filedocumented in this encounter Care Teams Floor Care Specialist Relationship Specialty Start Date End Date Clara Stanley PA [address] [place] [address] PCP - General Nurse Practitioner 04/05/19 Jasper Canchola MD [address] [place] [address] Surgeon Thoracic Surgery 05/11/19 Alexis Lopez MD [address] [address] Mechanic Assistant Pulmonary Disease 05/11/19 Kip Del Rio MD [address] [facility] [address] [place] [address] Medical Oncologist/Mine Expert Hematology and Oncology 05/11/19 Jacob Flynn MD [address] [facility] [address] [place] [address] Radiation Oncologist Radiation Oncology 05/25/19 documented as of this encounter
--- OUTSIDE RECORDS SUMMARY | 2024-03-02 03:45 | XMS_ITS | Encounter Summary ---
Author Organization [facility] Address [address] [place] [address] Phone Care Team Providers Care Box Toe Flanger Stitchdowns Name Role Phone Clara Stanley Primary Care Provider + Jasper Canchola MD Unavailable Alexis Lopez MD Unavailable [phone] Kip Del Rio MD Unavailable Jacob Flynn MD Unavailable Reason for Referral * MRI/CAT/PET Scan (Routine) - Closed Specialty Diagnoses / Procedures Referred By Contac t Referred To Contact Radiology Diagnoses High grade neuroendocrine carcinoma (HCC) Procedures CT Chest W Contrast Jasper Canchola MD Phone: tel: fax: [address] [address] Referral ID Status Reason Start Date Expiration Date Visits Re quested Visits Authorized [id number] Closed 12/04/2020 03/04/2021 1 1 Encounter Details Date Type Department Care Team (Late st Contact Info) Description 09/21/2020 Orders Only 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 Procedure Note Maye Jung MD - 12/14/2020 EXAMINATION: Computed tomography [...] MD IMG CT PROCEDURES Final R esult documented in this encounter Visit Diagnoses Diagnosis High grade neuroendocrine carcinoma (HCC)- Primary High grade neuroendocrine carcinoma (HCC) documented in this encounter Care Teams Box Toe Flanger Stitchdowns Relationship Specialty Start Date End Date Clara Stanley PA [address] [place] [address] PCP - General Nurse Practitioner 04/05/19 Jasper Canchola MD [facility] [place] [address] Surgeon Thoracic Surgery 05/11/19 Alexis Lopez MD [address] [address] Formation Fracturing Operator Pulmonary Disease 05/11/19 Kip Del Rio MD 49[address] [facility] [address] [place] [address] Medical Oncologist/Director Cardiac Hematology and Oncology 05/11/19 Jacob Flynn MD [address] [facility] [address] [place] [address] Radiation Oncologist Radiation Oncology 05/25/19 documented as of this encounter
--- OUTSIDE RECORDS SUMMARY | 2024-03-02 03:45 | XMS_ITS | Encounter Summary ---
Author Organization [facility] Address [address] [facility] [address] [place] [address] Phone Care Team Providers Care Superintendent Fish Hatchery Name Role Phone Clara Stanley Primary Care Provider + Jasper Canchola MD Unavailable Alexis Lopez MD Unavailable Kip Del Rio MD Unavailable Jacob Flynn MD Unavailable Encounter Details Date Type Department Care Team (Late st Contact Info) Description 12/26/2020 Telephone [facility] Surgery [address] [facility] 8th [place] [address] [place] [address] Stephanie Bautista, MICROGRINDER OPERATOR [address] [facility] [phone] [place] [address] Social History Tobacco Use Types Packs/Day Years [...] file Legal Sex Male 1:17 AM SCIENTIFIC AFFAIRS MANAGER Gender Identity Not on file Sexual Orientation Straight 09/22/2019 8: 21 PM CDT documented as of this encounter Miscellaneous Notes * Telephone Encounter - Stephanie Bautista NP - 12/26/2020 8:39 AM CDT FINAL DIAGNOSIS A. ??Lymph node, 2R, endobronchial ultrasound-guided fine needle aspiration: ? - Metastatic neuroendocrine carcinoma, consistent with the patient's known primary ? Comments The cell block confirms the diagnosis. I contacted the patient to let him know the final pathology results from recent lymph node biopsy. He was aware the preliminary showed malignancy, however, I wanted to [place] back around and let him know the final had been signed off and confirmed malignancy. Advised patient would be presented at [facility]. He reports he is meeting with Oncology tomorrow. We are waiting on approval from insurance company with regard to his DOTATATE PET. Instrument Lens Grinder Apprentice completed using [employer] Direct speaking software, therefore, coke production heater variances may occur. documented in this encounter Plan of Treatment Not on file documented as of this encounter Visit Diagnoses Not on filedocumented in this encounter Care Teams Superintendent Fish Hatchery Relationship Specialty Start Date End Date Clara Stanley PA [address] [place] [address] PCP - General Nurse Practitioner 04/05/19 Jasper Canchola MD [address] [place] [address] Surgeon Thoracic Surgery 05/11/19 [place] [address] [place] [address] [address] Entry Level Machine Operator Pulmonary Disease 05/11/19 Kip Del Rio MD [address] [facility] [address] [place] [address] Medical Oncologist/Surveyor Hematology and Oncology 05/11/19 Jacob Flynn MD [address] [facility] [address] [place], [place] [id number] Radiation Oncologist Radiation Oncology 05/25/19 documented as of this encounter
--- OUTSIDE RECORDS SUMMARY | 2024-03-02 03:45 | XMS_ITS | Encounter Summary ---
Author Organization [facility] Address [address] [facility] [address] [place] [address] Care Team Providers Care Civil Clerk Name Role Phone Clara Stanley Primary Care Provider + Jasper Canchola MD Unavailable Alexis Lopez MD Unavailable [phone] Kip Del Rio MD Unavailable Jacob Flynn MD Unavailable Reason for Visit * Reason Comments Follow-up Encounter Details Date Type Department Care Team (Late st Contact Info) Description 10/05/2020 10:30 AM CDT Office Visit [facility] Pulmonology [address] [facility] [address] [place] [address] Alexis Lopez MD [address] [facility] [address] [place] [address] Mild intermittent asthma without complication (Primary Dx); Carcinoid tumor of right lung; LEONOR (obstructive sleep apnea) Social History Tobacco Use Types Packs/Day Years Used Date Smoking Tobacco: Never Smokeless Tobacco: Never Alcohol Use Standard Drinks/Week Comments Yes 2 (1 standard drink = 0.6 oz pur e alcohol) Sex and Gender Information Value Date Recorded Sex Assigned at Not on file 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 Gender Identity Not on file Sexual Orientation Straight 09/22/2019 8: 21 PM CDT documented as of this encounter Last Filed Vital Signs Vital Sign Reading Time Taken Comments Blood Pressure 178/96 10/05/2020 10:23 AM CDT Pulse 71 10/05/2020 10:23 AM CDT Temperature 36.2 ??C (97.1 ??F) 10/05/2020 10:23 AM C DT Respiratory Rate 20 10/05/2020 10:23 AM CDT Oxygen Saturation 96% 10/05/2020 10:23 AM CDT Inhaled Oxygen Concentration - - Weight 164.2 kg (362 lb) 10/05/2020 10:23 AM CDT Height 190.5 cm (6' 3 ) 10/05/2020 10:23 AM CDT Body Mass Index 45.25 10/05/2020 10:23 AM CDT documented in this encounter Progress Notes * Alexis Lopez MD - 10/05/2020 10:30 AM CDT Images from the original note were not included. Progress Note Patient: Kwaku Kulkarni ( - 1965) is a 55 y.o. male. Visit Date: 10/05/2020 Chief Complaint Patient presents with ??? Follow-up History of Present Illness: The patient male who returns for follow-up of his asthma and LEONOR. 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 Del Rio and Sushant at [facility]. His most recent chest CT revealed a right paratracheal lymph node that has increased to 1 cm in size. Another chest CT is scheduled for this fall. He is not tolerating his CPAP unit well because he is restless at night. He states that his breathing is under control and is using Symbicort on a p.r.n. basis. He also has Flonase and albuterol to use at home. Past Medical History: Past Medical History: Diagnosis Date ??? LEIDA (acute kidney injury) (CMS/HCC) ??? Carcinoid tumor of lung right lung ??? Chronic headaches 03/2019 IIH (idiopathic intracranial hypertension) ??? Hyponatremia ??? IIH (idiopathic intracranial hypertension) ??? LEONOR (obstructive sleep apnea) 12/02/2019 Surgical History: Past Surgical History: Procedure Laterality Date ??? APPENDECTOMY ??? BRONCHOSCOPY 05/30/2019 ??? COLONOSCOPY 2018 ??? COLONOSCOPY ??? ESOPHAGOGASTRODUODENOSCOPY 04/2019 ??? LUMBAR PUNCTURE 04/03/2019 ??? MEDIASTINOSCOPY 05/19/2019 Cervical Mediastinoscopy ??? THORACOTOMY 05/26/2019 THORACOTOMY LOBECTOMY / lymph node disection (Right) ??? TONSILLECTOMY Current Medications: Current Outpatient Medications Medication Sig Dispense Refill ??? amLODIPine (NORVASC) 10 mg tablet Take 10 mg by mouth every morning ??? ascorbic acid (VITAMIN C) 1,000 mg tablet Take 1,000 mg by mouth daily ??? budesonide-formoteroL (SYMBICORT) 160-4.5 mcg/actuation inhaler Inhale 2 puffs 2 (two) times a day Rinse mouth with water after use. Do not swallow. 1 Inhaler 5 ??? cetirizine (ZyrTEC) 10 mg tablet Take 10 mg by mouth every morning ??? cholecalciferol (VITAMIN D-3) 50,000 unit capsule Take 50,000 Units by mouth ??? fluticasone propionate (FLONASE) 50 mcg/actuation nasal spray ??? LORazepam (ATIVAN) 0.5 mg tablet Take 0.5 mg by mouth every 6 (six) hours as needed for anxiety ??? pravastatin (PRAVACHOL) 20 mg tablet Take 20 mg by mouth every morning ??? albuterol HFA (PROVENTIL HFA,VENTOLIN HFA,PROAIR HFA) 90 mcg/actuation inhaler INL 2 PFS PO Q 4H PRN ??? gabapentin (NEURONTIN) 300 mg capsule Take 1 capsule (300 mg total) by mouth nightly for 14 days (Patient taking differently: Take 300 mg by mouth nightly ) 14 capsule 0 ??? traZODone (DESYREL) 50 mg tablet Take 50 mg by mouth daily Just got prescribed this morning. Has not taken any yet. No current facility-administered medications for this visit. Allergies: No Known Allergies Family History: Family History Problem Relation Age of Onset ??? Cancer Mother ??? Heart disease Father ??? Cancer Father ??? Cancer Sister ??? Anesthesia problems Neg Hx Social History: Social History Socioeconomic History ??? Marital status: Spouse name: None ??? Number of children: None ??? Years of education: None ??? Highest education level: None Occupational History ??? None Tobacco Use ??? Smoking status: Never Smoker [...] Strain: ??? Difficulty of Paying Living Expenses: Food Insecurity: ??? Worried About Running Out of Food in the Last Year: ??? Ran Out of Food in the Last Year: Transportation Needs: ??? Lack of Transportation (Medical): ??? Lack of Transportation (Non-Medical): Physical Activity: ??? Days of Exercise per Week: ??? Minutes of Exercise per Session: Stress: ??? Feeling of Stress : Social Connections: ??? Frequency of Communication with Friends and Family: ??? Frequency of Social Gatherings with Friends and Family: ??? Attends Voodoo Services: ??? Active Member of Clubs or Organizations: ??? Attends Club or Organization Meetings: ??? Marital Status: Intimate Partner Violence: ??? Fear of Current or Ex-Partner: ??? Emotionally Abused: ??? Physically Abused: ??? Sexually Abused: Review of Systems: Review of Systems Constitutional: Negative for appetite change, fever and unexpected weight change. HENT: Negative for rhinorrhea, sinus pressure, sinus pain, sore throat and tinnitus. Respiratory: Positive for cough. Negative for shortness of breath and wheezing. Cardiovascular: Negative for chest pain, palpitations and leg swelling. Gastrointestinal: Negative for abdominal pain, diarrhea and nausea. Genitourinary: Negative for hematuria. Musculoskeletal: Negative for arthralgias, back pain and myalgias. Skin: Negative for color change. Allergic/Immunologic: Negative for environmental allergies and food allergies. Neurological: Negative for dizziness and light-headedness. Physical Exam: Vitals: 10/05/20 1023 BP: (!) 178/96 Pulse: 71 Resp: 20 Temp: 36.2 ??C (97.1 ??F) TempSrc: Tympanic SpO2: 96% Weight: (!) 164.2 kg (362 lb) Height: 190.5 cm (6' 3 ) [...] and time. Data Reviewed Images: CT Chest W Contrast Result Date: 09/19/2020 1. Enlarging high right paratracheal lymph node suspicious for metastatic disease. 2. Tiny unchanged pulmonary nodules. Electronically signed by: Momo Garcia M.D. Assessment and Plan: Diagnoses and all orders for this visit: Mild intermittent asthma without complication (Primary) Assessment & Plan: The patient is breathing has been under good control with albuterol MDI, Symbicort and Flonase. Carcinoid tumor of right lung Comments: The patient is being followed at [facility] with serial chest CTs by Drs. Del Rio and Sushant. LEONOR (obstructive sleep apnea) Assessment & Plan: I did encourage the patient to use the auto titrating CPAP unit with a range of 5-20 cm water pressure. His DME is [facility]. Rendering Provider & Department: Alexis Lopez MD documented in this encounter Miscellaneous Notes * Assessment & Plan Note - Alexis Lopez MD - 10/05/2020 11:01 AM CDT Associated Problem(s): LEONOR (obstructive sleep apnea) I did encourage the patient to use the auto titrating CPAP unit with a range of 5-20 cm water pressure. His DME is [facility]. * Assessment & Plan Note - Alexis Lopez MD - 10/05/2020 11:00 AM CDT Associated Problem(s): Mild intermittent asthma without complication The patient is breathing has been under good control with albuterol MDI, Symbicort and Flonase. documented in this encounter Plan of Treatment Not on file documented as of this encounter Visit Diagnoses Diagnosis Mild intermittent asthma without complication- Primary Carcinoid tumor of right lung LEONOR (obstructive sleep apnea) Obstructive sleep apnea (adult) (pediatric) documented in this encounter Care Teams Civil Clerk Relationship Specialty Start Date End Date Clara Stanley PA [address] [place] [address] PCP - General Nurse Practitioner 04/05/19 Jasper Canchola MD [address] [place] [address] Surgeon Thoracic Surgery 05/11/19 Alexis Lopez MD [address] [address] Supervisor Baking Pulmonary Disease 05/11/19 Kip Del Rio MD [address] [facility] [address] [place] [address] Medical Oncologist/Time Stamp Assembler Hematology and Oncology 05/11/19 Jacob Flynn MD [address] [facility] [address] [place] [address] Radiation Oncologist Radiation Oncology 05/25/19 documented as of this encounter
--- OUTSIDE RECORDS SUMMARY | 2024-03-02 03:45 | XMS_ITS | Encounter Summary ---
Author Organization [facility] Address [address] [facility] [address] [place] [address] Care Team Providers Care Hold Worker Name Role Phone Clara Stanley Primary Care Provider + Jasper Canchola MD Unavailable Alexis Lopez MD Unavailable [phone] Kip Del Rio MD Unavailable Jacob Flynn MD Unavailable Encounter Details Date Type Department Care Team (Late st Contact Info) Description 02/04/2021 Orders Only [facility] Pulmonology [address] 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 on file Not on file documented as of this encounter Progress Notes * Yolanda Segal RN - 02/04/2021 10:33 AM CST Order for cpap supplies has been sent to [facility] [employer]SSING ANALYST documented in this encounter Plan of Treatment Not on file documented as of this encounter Visit Diagnoses Diagnosis LEONOR (obstructive sleep apnea)- Primary Obstructive sleep apnea (adult) (pediatric) documented in this encounter Care Teams Hold Worker Relationship Specialty Start Date End Date Clara Stanley PA [address] [place] [address] PCP - General Nurse Practitioner 04/05/19 Jasper Canchola MD [address] [place] [address] Surgeon Thoracic Surgery 05/11/19 Alexis Lopez MD [address] [address] Mechanical Design Engineer Facilities Pulmonary Disease 05/11/19 Kip Del Rio MD [address] [facility] [address] [place] [address] Medical Oncologist/Career Development Associate Hematology and Oncology 05/11/19 Jacob Flynn MD [address] [facility] [address] [place] [address] Radiation Oncologist Radiation Oncology 05/25/19 documented as of this encounter
--- OUTSIDE RECORDS SUMMARY | 2024-03-02 03:45 | XMS_ITS | Encounter Summary ---
Author Organization [facility] Address [address] [place] [address] Care Team Providers Care Cath Lab Radiological Technologist Name Role Phone Clara Stanley Primary Care Provider + Jasper Canchola MD Unavailable Alexis Lopez MD Unavailable Kip Del Rio MD Unavailable Jacob Flynn MD Unavailable [phone] Encounter Details Date Type Department Care Team (Late st Contact Info) Description 01/15/2021 Telephone [facility] Radiation Oncology [address] [facility] [place] [address] Ayala Martinez RN Social History Tobacco Use [...] on file 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 Plans to attend. documented in this encounter Plan of Treatment Not on file documented as of this encounter Visit Diagnoses Not on filedocumented in this encounter Care Teams Cath Lab Radiological Technologist Relationship Specialty Start Date End Date Clara Stanley PA [address] [place] [address] PCP - General Nurse Practitioner 04/05/19 Jasper Canchola MD [address] [place] [address] Surgeon Thoracic Surgery 05/11/19 Alexis Lopez MD [address] [address] Geophysics Professor Pulmonary Disease 05/11/19 Kip Del Rio MD [address] [facility] [address] [place] [address] Medical Oncologist/Land Survey Technician Hematology and Oncology 05/11/19 Jacob Flynn MD [address] [facility] [address] [place] [address] Radiation Oncologist Radiation Oncology 05/25/19 documented as of this encounter
--- OUTSIDE RECORDS SUMMARY | 2024-03-02 03:45 | XMS_ITS | Encounter Summary ---
Author Organization [facility] Address [address] [facility] [address] [place] [address] Phone Care Team Providers Care Web Operations Administrator Name Role Phone Clara Stanley Primary Care Provider + Jasper Canchola MD Unavailable Alexis Lopez MD Unavailable [phone] Kip Del Rio MD Unavailable Jacob Flynn MD Unavailable [phone] Reason for Visit * Consultation (Routine) - Closed Specialty Diagnoses / Procedures Referred By Contac t Referred To Contact Oncology Diagnoses Malignant neoplasm of lower lobe of right lung (HCC) Jasper Canchola MD [address] [facility] [id number] [place] [address] Phone: tel: fax: Kip Del Rio MD Phone: tel: fax: Referral ID Status Reason Start Date Expiration Date V isits Requested Visits Authorized [id number] Closed Specialty Services Required 12/24/2020 03/15/2021 99 99 Encounter Details Date Type Department Care Team (Late st Contact Info) Description 12/27/2020 2:40 PM CDT Office Visit 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 Gender Identity Not on file Sexual Orientation Straight 09/22/2019 8: 21 PM CDT documented as of this encounter Last Filed Vital Signs Vital Sign Reading Time Taken Comments Blood Pressure 126/86 12/27/2020 2:33 PM CDT Pulse 75 12/27/2020 2:33 PM CDT Temperature 36.6 ??C (97.8 ??F) 12/27/2020 2:33 PM CD T Respiratory Rate 18 12/27/2020 2:33 PM CDT Oxygen Saturation 100% 12/27/2020 2:33 PM CDT Inhaled Oxygen Concentration - - Weight 160.4 kg (353 lb 9.6 oz) 12/27/2020 2:33 PM CDT Height - - Body Mass Index 44.2 12/24/2020 7:53 AM CDT documented in this encounter Progress Notes * Kip Del Rio MD - 12/27/2020 2:40 PM CDT Oncology Progress Note Cancer Staging Carcinoid tumor of right lung Staging form: Lung, AJCC 8th Edition - Clinical: Stage IIIA (cT1c, cN2, cM0) - Unsigned Oncology History No history exists. Active Treatment & Therapy Plans for Kwaku Kulkarni, Kwaku Anderson does not have any active plans of the following types: Oncology Chemotherapy Treatment, Oncology Treatment (2), Oncology Treatment (3), Oncology Supportive Care, SpecialtyInfusion Treatment, Blood Products, BMT, Hematology Subjective Interval History Mr. Kwaku Kulkarni presents today accompanied by his . We last saw Mr Carnes 05/12/2019for a consult for his lung nodules. He was referred to Dr. Canchola who had a right lower lobectomy and mediastinal lymph node dissection for excision of a T1cN2 neuroendocrine carcinoma on 05/26/2019. However, a routine follow up CT scan performed on 12/14/2020 demonstrated concern for an increase in size of the right paratracheal lymph node. Therefore, he had a ultrasound guided fine needle aspiration of the 2R lymph node on 12/24/2020 which demonstrated neuroendocrine carcinoma. He is completely asymptomatic. PAST MEDICAL HISTORY: ?? Idiopathic intracranial hypertension ?? PAST SURGICAL HISTORY: ?? Appendectomy (Age 14) ?? Tonsillectomy (Unsure of age, but as a child) ?? SOCIAL HISTORY: He lives in [place], [place]. He is is to Anna Kulkarni and they have three children all of whom live in the area. 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 He is a never smoker. He notes rare alcohol intake and denies recreational drug use. FAMILY HISTORY: ?? Mother: Cancer ?? Father: Heart disease and cancer ?? Sister: Residential smoker with history of lung cancer ?? No Known Allergies Current Outpatient Medications: ??? amLODIPine (NORVASC) 10 mg tablet, Take 10 mg by mouth every morning , Disp: , Rfl: ??? ascorbic acid (VITAMIN C) 1,000 mg tablet, Take 1,000 mg by mouth daily, Disp: , Rfl: ??? budesonide-formoteroL (SYMBICORT) 160-4.5 mcg/actuation inhaler, Inhale 2 puffs 2 (two) times aday Rinse mouth with water after use. Do not swallow., Disp: 1 Inhaler, Rfl: 5 ??? cetirizine (ZyrTEC) 10 mg tablet, Take 10 mg by mouth every morning , Disp: , Rfl: ??? cholecalciferol (VITAMIN D-3) 50,000 unit capsule, Take 50,000 Units by mouth, Disp: , Rfl: ??? fluticasone propionate (FLONASE) 50 mcg/actuation nasal spray, , Disp: , Rfl: ??? LORazepam (ATIVAN) 0.5 mg tablet, Take 0.5 mg by mouth every 6 (six) hours as needed for anxiety , Disp: , Rfl: ??? pravastatin (PRAVACHOL) 20 mg tablet, Take 20 mg by mouth every morning , Disp: , Rfl: ??? albuterol HFA (PROVENTIL HFA,VENTOLIN HFA,PROAIR HFA) 90 mcg/actuation inhaler, INL 2 PFS PO Q 4 H PRN, Disp: , Rfl: ??? gabapentin (NEURONTIN) 300 mg capsule, Take 1 capsule (300 mg total) by mouth nightly for 14 days (Patient taking differently: Take 300 mg by mouth nightly ), Disp: 14 capsule, Rfl: 0 ??? traZODone (DESYREL) 50 mg tablet, Take 50 mg by mouth daily Just got prescribed this morning. Has not taken any yet., Disp: , Rfl: Review of Systems: As per Interval History. All other systems reviewed and negative. Performance Status: 0 Objective Vitals: Most Recent : BP: 126/86 Temp: 36.6 ??C (97.8 ??F) Temp src: Transdermal Pulse: 75 Resp: 18 SpO2: 100 % Height: 190.5 cm (6' 3 ) Weight: (!) 160.4 kg (353 lb 9.6 oz) Physical Exam: General: Well-appearing, in no [...] sensory deficits noted. Psychiatric exam: Appropriate affect Assessment/Plan Mr. 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 He is completely asymptomatic. We will obtain the Dotatate PET scan on 12/31/20. We discussed treatment options including surgery, local radiation therapy and systemic therapy. I have spoken with Dr. Canchola regarding Mr. Kulkarni's management. We will ask our colleague Dr. Flynn to see Mr. Kulkarni to discuss radiation therapy option. Mr. Kulkarni is open to considering surgery even though he is aware that he will need a sternotomy to have the node accessed. We will review the planned Dotatate PET scan early next week and finalize his treatment plans. Kip Del Rio M.D. documented in this encounter Plan of Treatment Not on file documented as of this encounter Visit Diagnoses Diagnosis Malignant neoplasm of lower lobe of right lung (HCC)- Primary documented in this encounter Orders Outpatient Referral Count Last Ordered Date st Ordered Date AMB REFERRAL TO ONCOLOGY 1 12/27/2020 documented in this encounter Care Teams Web Operations Administrator Relationship Specialty Start Date End Date Clara Stanley PA [facility] [place] [address] PCP - General Nurse Practitioner 04/05/19 Jasper Canchola MD [facility] [place] [address] Surgeon Thoracic Surgery 05/11/19 Alexis Lopez MD [address] [facility] [address] [address] Loss Control Engineer Pulmonary Disease 05/11/19 Kip Del Rio MD [address] [facility] [address] [place] [address] Medical Oncologist/Can Vacuum Tester Hematology and Oncology 05/11/19 Jacob Flynn MD [address] [facility] [address] [place] [address] Radiation Oncologist Radiation Oncology 05/25/19 documented as of this encounter
--- OUTSIDE RECORDS SUMMARY | 2024-03-02 03:45 | XMS_ITS | Encounter Summary ---
Author Organization [facility] Healthcare Address [address] [place] [address] Care Team Providers Care Head Golf Coach Name Role Phone Clara Stanley Primary Care Provider + Jasper Canchola MD Unavailable Alexis Lopez MD Unavailable Kip Del Rio MD Unavailable Jacob Flynn MD Unavailable Encounter Details Date Type Department Care Team (Late st Contact Info) Description 02/04/2021 1:30 PM 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 Treatment [facility] Radiation Oncology [address] [facility] [place] [address] Social History Tobacco Use Types Packs/Day Years [...] on file Legal Sex Male 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 Gender Identity Not on file Sexual Orientation Straight 09/22/2019 8: 21 PM CDT 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 on file Not on file documented as of this encounter Plan of Treatment Not on file documented as of this encounter Visit Diagnoses Not on filedocumented in this encounter Care Teams Head Golf Coach Relationship Specialty Start Date End Date Clara Stanley PA [address] [place] [address] PCP - General Nurse Practitioner 04/05/19 Jasper Canchola MD [address] [place] [address] Surgeon Thoracic Surgery 05/11/19 Alexis Lopez MD [address] [address] Can Coverer Pulmonary Disease 05/11/19 Kip Del Rio MD [address] [facility] [address] [place] [address] Medical Oncologist/Defence Force Senior Officer Hematology and Oncology 05/11/19 Jacob Flynn MD [address] [facility] [address] LL [address] [place] [address] Radiation Oncologist Radiation Oncology 05/25/19 documented as of this encounter
--- OUTSIDE RECORDS SUMMARY | 2024-03-02 03:45 | XMS_ITS | Encounter Summary ---
Author Organization [facility] Healthcare Address [address] [place] [address] Care Team Providers Care Assembler And Tester Electronics Name Role Phone Clara Stanley Primary Care Provider + Jasper Canchola MD Unavailable Alexis Lopez MD Unavailable Kip Del Rio MD Unavailable Jacob Flynn MD Unavailable Encounter Details Date Type Department Care Team (Late st Contact Info) Description 02/03/2021 8:30 AM DATA SOLUTIONS ARCHITECT Treatment [facility] Radiation Oncology [address] [facility] [place] [address] Social History Tobacco Use Types Packs/Day Years [...] on file Legal Sex Male 1:17 AM DATA SOLUTIONS ARCHITECT Gender Identity Not on file Sexual Orientation Straight 09/22/2019 8: 21 PM CDT 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 on file Not on file documented as of this encounter Plan of Treatment Not on file documented as of this encounter Visit Diagnoses Not on filedocumented in this encounter Care Teams Assembler And Tester Electronics Relationship Specialty Start Date End Date Clara Stanley PA [address] [place] [address] PCP - General Nurse Practitioner 04/05/19 Jasper Canchola MD [address] [place] [address] Surgeon Thoracic Surgery 05/11/19 Alexis Lopez MD [address] [address] Mass Spectrometry Specialist Pulmonary Disease 05/11/19 Kip Del Rio MD [address] [facility] [address] [place] [address] Medical Oncologist/Senior Product Designer Hematology and Oncology 05/11/19 Jacob Flynn MD [address] [facility] [address] [place] [address] Radiation Oncologist Radiation Oncology 05/25/19 documented as of this encounter
--- OUTSIDE RECORDS SUMMARY | 2024-03-02 03:45 | XMS_ITS | Encounter Summary ---
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 TECHNICIAN Gender Identity Not on file Sexual Orientation Straight 09/22/2019 8: 21 PM CDT 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 on file Not on file documented as of this encounter Plan of Treatment Not on file documented as of this encounter Procedures Procedure Name Priority Date/Time Associated Diagnosis Comments RAD ONC ARIA SESSION SUMMARY 01/31/2021 8:47 AM MONOGRAM TECHNICIAN documented in this encounter Results * RAD ONC ARIA SESSION SUMMARY (01/31/2021 8:47 AM MONOGRAM TECHNICIAN) Course Name [id number] ARIA Course Plan Date 01/18/2021 1:45 PM ARIA Elapsed Days 0 ARIA Treatment Start Date 01/31/2021 ARIA Treatment Site lung dpv ARIA Dose Given To Date (cGy) 400 ARIA Session Dosage Given (cGy) 400 ARIA Plan ID MEDIASTINUM ARIA Fractions Treated 1 ARIA Prescribed Dose Per Fraction (cGy) 400 ARIA Prescribed Total Dose (cGy) 6,000 ARIA 01/31/2021 8:47 AM MONOGRAM TECHNICIAN us Not In File Miscellaneous RADIATION ONCOLOGY ORD ERABLES Final Result ARIA documented in this encounter Visit Diagnoses Not on filedocumented in this encounter Care Teams Lobbyist Relationship Specialty Start Date End Date Clara Stanley PA [address] [place] [address] PCP - General Nurse Practitioner 04/05/19 Jasper Canchola MD [address] [place] [address] Surgeon Thoracic Surgery 05/11/19 Alexis Lopez MD [address] [facility] [address] [place] [address] [place] [address] Manager Diversity Pulmonary Disease 05/11/19 Kip Del Rio MD [address] [facility] [address] [place] [address] Medical Oncologist/Biodiesel Plant Manager Hematology and Oncology 05/11/19 Jacob Flynn MD [address] [facility] [address] LL [address] [place] [address] Radiation Oncologist Radiation Oncology 05/25/19 documented as of this encounter
--- OUTSIDE RECORDS SUMMARY | 2024-03-02 03:45 | XMS_ITS | Encounter Summary ---
Author Organization [facility] Healthcare Address [address] [place] [address] Care Team Providers Care Sales Ambassador Name Role Phone Clara Stanley Primary Care Provider + Jasper Canchola MD Unavailable Alexis Lopez MD Unavailable [phone] Kip Del Rio MD Unavailable Jacob Flynn MD Unavailable [phone] Reason for Visit * Reason Comments IV prior to SIM Encounter Details Date Type Department Care Team (Late st Contact Info) Description 01/18/2021 10:15 AM CDT Clinical Support [facility] Advanced Medicine Radiation Oncology [address] [facility] [place] [address] Social History Tobacco Use Types Packs/Day Years [...] on file 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 Line flushes easily with good blood return. Occlusive dressing applied to site. Patient tolerated well. documented in this encounter Plan of Treatment Not on file documented as of this encounter Visit Diagnoses Not on filedocumented in this encounter Care Teams Sales Ambassador Relationship Specialty Start Date End Date Clara Stanley PA [address] [place] [address] PCP - General Nurse Practitioner 04/05/19 Jasper Canchola MD [address] [place] [address] Surgeon Thoracic Surgery 05/11/19 Alexis Lopez MD [address] [address] Senior Executive Compensation Analyst Pulmonary Disease 05/11/19 Kip Del Rio MD [address] [facility] [address] [place] [address] Medical Oncologist/Head Silverman Hematology and Oncology 05/11/19 [place] [address] [place] [address] [address] [place] [address] Radiation Oncologist Radiation Oncology 05/25/19 documented as of this encounter
--- OUTSIDE RECORDS SUMMARY | 2024-03-02 03:45 | XMS_ITS | Encounter Summary ---
Author Organization [facility] Healthcare Address [address] [place] [address] Care Team Providers Care Rod And Tube Straightener Name Role Phone Clara Stanley Primary Care Provider + Jasper Canchola MD Unavailable Alexis Lopez MD Unavailable [phone] Kip Del Rio MD Unavailable Jacob Flynn MD Unavailable Encounter Details Date Type Department Care Team (Late st Contact Info) Description 02/05/2021 1:30 PM MACHINE STAPLER Treatment [facility] Radiation Oncology [address] [facility] [place] [address] Social History Tobacco Use Types Packs/Day Years [...] on file Legal Sex Male 1:17 AM MACHINE STAPLER Gender Identity Not on file Sexual Orientation Straight 09/22/2019 8: 21 PM CDT 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 on file Not on file documented as of this encounter Plan of Treatment Not on file documented as of this encounter Visit Diagnoses Not on filedocumented in this encounter Care Teams Rod And Tube Straightener Relationship Specialty Start Date End Date Clara Stanley PA [address] [place] [address] PCP - General Nurse Practitioner 04/05/19 Jasper Canchola MD [address] [place] [address] Surgeon Thoracic Surgery 05/11/19 Alexis Lopez MD [address] [address] Electrician Machine Shop Pulmonary Disease 05/11/19 Kip Del Rio MD [address] [facility] [address] [place] [address] Medical Oncologist/Director Of Orthopedics Hematology and Oncology 05/11/19 Jacob Flynn MD [address] [facility] [address] # LL LL [address] [place] [address] Radiation Oncologist Radiation Oncology 05/25/19 documented as of this encounter
--- OUTSIDE RECORDS SUMMARY | 2024-03-02 03:45 | XMS_ITS | Encounter Summary ---
Author Organization [facility] Healthcare Address [address] [place] [address] Care Team Providers Care Marble Installer Supervisor Name Role Phone Clara Stanley Primary Care Provider + Jasper Canchola MD Unavailable Alexis Lopez MD Unavailable Kip Del Rio MD Unavailable Jacob Flynn MD Unavailable Encounter Details Date Type Department Care Team (Late st Contact Info) Description 02/01/2021 8:30 AM CARTRIDGE LOADER Treatment [facility] Radiation Oncology [address] [facility] [place] [address] Social History Tobacco Use Types Packs/Day Years [...] on file Legal Sex Male 1:17 AM CARTRIDGE LOADER Gender Identity Not on file Sexual Orientation Straight 09/22/2019 8: 21 PM CDT 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 on file Not on file documented as of this encounter Plan of Treatment Not on file documented as of this encounter Visit Diagnoses Not on filedocumented in this encounter Care Teams Marble Installer Supervisor Relationship Specialty Start Date End Date Clara Stanley PA [address] [place] [address] PCP - General Nurse Practitioner 04/05/19 Jasper Canchola MD [address] [place] [address] Surgeon Thoracic Surgery 05/11/19 Alexis Lopez MD [address] [address] Bone Char Operator Pulmonary Disease 05/11/19 Kip Del Rio MD [address] [facility] [address] [place] [address] Medical Oncologist/Brake Repair Supervisor Hematology and Oncology 05/11/19 Jacob Flynn MD [address] [facility] [address] # LL LL [address] [place] [address] Radiation Oncologist Radiation Oncology 05/25/19 documented as of this encounter
--- OUTSIDE RECORDS SUMMARY | 2024-03-02 03:45 | XMS_ITS | Encounter Summary ---
Author Organization [facility] Healthcare Address [address] [place] [address] Care Team Providers Care Silver Miner Blasting Name Role Phone Clara Stanley Primary Care Provider + Jasper Canchola MD Unavailable Alexis Lopez MD Unavailable Kip Del Rio MD Unavailable Jacob Flynn MD Unavailable Encounter Details Date Type Department Care Team (Late st Contact Info) Description 01/31/2021 8:10 AM TECHNICAL ILLUSTRATIONS MAP INKER Treatment [facility] Radiation Oncology [address] [facility] Advanced Medicine [facility] [place] [address] Jacob Flynn MD [address] [facility] # LL LL [address] [place] [address] Social History Tobacco Use Types Packs/Day Years [...] on file Legal Sex Male 1:17 AM TECHNICAL ILLUSTRATIONS MAP INKER Gender Identity Not on file Sexual Orientation Straight 09/22/2019 8: 21 PM CDT 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 on file Not on file documented as of this encounter Plan of Treatment Not on file documented as of this encounter Visit Diagnoses Not on filedocumented in this encounter Care Teams Silver Miner Blasting Relationship Specialty Start Date End Date Clara Stanley PA [address] [place] [address] PCP - General Nurse Practitioner 04/05/19 Jasper Canchola MD [address] [place] [address] Surgeon Thoracic Surgery 05/11/19 Alexis Lopez MD [address] [address] Family Day Care Provider Pulmonary Disease 05/11/19 Kip Del Rio MD [address] [facility] [address] [place] [address] Medical Oncologist/Air Compressor Engineer Hematology and Oncology 05/11/19 Jacob Flynn MD [address] [facility] [address] LL [address] [place] [address] Radiation Oncologist Radiation Oncology 05/25/19 documented as of this encounter
--- OUTSIDE RECORDS SUMMARY | 2024-03-02 03:45 | XMS_ITS | Encounter Summary ---
Author Organization [facility] Address [address] [facility] [address] [place] [address] Phone Care Team Providers Care Stone Paver Name Role Phone Clara Stanley Primary Care Provider + Jasper Canchola MD Unavailable Alexis Lopez MD Unavailable [phone] Kip Del Rio MD Unavailable Jacob Flynn MD Unavailable [phone] Reason for Referral * MRI/CAT/PET Scan (Routine) - Denied Specialty Diagnoses / Procedures Referred By Contac t Referred To Contact Radiology Diagnoses Neuroendocrine carcinoma (HCC) Procedures PET/CT Dotatate Skull to Thigh Stephanie Bautista NP [address] [facility] [id number] [place] [address] Phone: tel: fax: [address] [address] Referral ID Status Reason Start Date Expiration Date Visits Re quested Visits Authorized [id number] Denied 12/24/2020 01/23/2022 2 0 Encounter Details Date Type Department Care Team (Late st Contact Info) Description 12/24/2020 Orders Only [facility] Surgery [address] [facility] 8th [place] [address] [place] [address] Stephanie Bautista NP [address] [facility] [address] [place] [address] Neuroendocrine carcinoma (CMS/HCC) (HCC) (Primary Dx) Social History [...] on file 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 Message sent to to schedule. KAITLIN Pierce documented in this encounter Plan of Treatment Not on file documented as of this encounter Results * PET/CT Dotatate Skull [...] obtained. ??The study was interpreted on the Garmor workstation. ?? Scanned area: skull vertex to [...] obtained. The study was interpreted on the Garmor workstation. Scanned area: skull vertex to the [...] this encounter Visit Diagnoses Diagnosis Neuroendocrine carcinoma (HCC)- Primary Other malignant neoplasm of unspecified site Neuroendocrine carcinoma (HCC) Other malignant neoplasm of unspecified site documented in this encounter Care Teams Stone Paver Relationship Specialty Start Date End Date Clara Stanley PA [address] [place] [address] PCP - General Nurse Practitioner 04/05/19 Jasper Canchola MD [address] [place] [address] Surgeon Thoracic Surgery 05/11/19 Alexis Lopez MD [address] [facility] [address] [address] Liquefied Natural Gas Operator Pulmonary Disease 05/11/19 [place] [address] [place] [address] [place] [address] Medical Oncologist/Commercial Painter Hematology and Oncology 05/11/19 Jacob Flynn MD [address] [facility] [address] LL [address] [place] [address] Radiation Oncologist Radiation Oncology 05/25/19 documented as of this encounter
--- OUTSIDE RECORDS SUMMARY | 2024-03-02 03:45 | XMS_ITS | Encounter Summary ---
Author Organization [facility] Address [address] [place] [address] Phone Care Team Providers Care Television Service Engineer Name Role Phone Clara Stanley Primary Care Provider + Jasper Canchola MD Unavailable Alexis Lopez MD Unavailable [phone] Kip Del Rio MD Unavailable [phone] Jacob Flynn MD Unavailable Reason for Referral * Pulmonology (Routine) - Closed Specialty Diagnoses / Procedures Referred By Contac t Referred To Contact Pulmonology Diagnoses LAD (lymphadenopathy) Procedures Bronchoscopy -[facility] Interventional Pulm; Bronchoscopy, EBUS LINEAR Noah Dominguez Chi, MD [address] [place] [address] Phone: tel: fax: [facility] [address] [facility] [address] [place] [address] Phone: tel: fax: Referral ID Status Reason Start Date Expiration Date Visits Re quested Visits Authorized [id number] Closed 12/14/2020 01/13/2022 1 1 Encounter Details Date Type Department Care Team (Late st Contact Info) Description 12/14/2020 Orders Only [facility] [address] [facility] 8th [place] [address] [place] [address] Ezekiel Alvarado RMA LAD (lymphadenopathy) (Primary Dx) Social History Tobacco Use Types Packs/Day Years Used Date Smoking Tobacco: Never Smokeless Tobacco: Never Alcohol Use Standard Drinks/Week Comments Yes 2 (1 standard drink = 0.6 oz pur e alcohol) Sex and Gender Information Value Date Recorded Sex Assigned at Not on file Legal 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 Male 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 Gender Identity Not on file Sexual Orientation Straight 09/22/2019 8: 21 PM CDT documented as of this encounter Plan of Treatment Not on file documented as of this encounter Results * Bronchoscopy -[facility] Interventional Pulm; Bronchoscopy, EBUS LINEAR (12/24/2020 8:57 AM CDT) Anatomical Region Laterality Modality Other Narrative Procedure Note Noah Dominguez Chi, MD - 12/24/2020 8:57 AM CDT [facility] Interventional Pulmonary Patient Name: Kwaku Kulkarni Procedure Date: 12/24/2020 8:57 AM Date of [...] 0 Note Initiated On: 12/24/2020 8:57 AM Noah Dominguez MD BRONCH ORDERABLES Final Re sult documented in this encounter Visit Diagnoses Diagnosis LAD (lymphadenopathy)- Primary LAD (lymphadenopathy) documented in this encounter Care Teams Television Service Engineer Relationship Specialty Start Date End Date Clara Stanley PA [address] [place] [address] PCP - General Nurse Practitioner 04/05/19 Jasper Canchola MD [address] [place] [address] Surgeon Thoracic Surgery 05/11/19 Alexis Lopez MD [address] [facility] [address] [address] Scalloper Pulmonary Disease 05/11/19 Kip Del Rio MD [address] [facility] [address] [place] [address] Medical Oncologist/Community Arts Centre Manager Hematology and Oncology 05/11/19 Jacob Flynn MD [address] [facility] [address] LL [address] [place] [address] Radiation Oncologist Radiation Oncology 05/25/19 documented as of this encounter
--- OUTSIDE RECORDS SUMMARY | 2024-03-02 03:45 | XMS_ITS | Encounter Summary ---
Author Organization [facility] Healthcare Address [address] [place] [address] Care Team Providers Care Deck Builder Name Role Phone Clara Stanley Primary Care Provider + Jasper Canchola MD Unavailable Alexis Lopez MD Unavailable Kip Del Rio MD Unavailable Jacob Flynn MD Unavailable Encounter Details Date Type Department Care Team (Late st Contact Info) Description 01/25/2021 Telephone [facility] Advanced Medicine Radiation Oncology [address] [facility] Advanced Medicine [facility] [place] [address] Jacob Flynn MD [address] [facility] [address] LL [address] [place] [address] Social History Tobacco Use Types Packs/Day Years [...] on file Legal Sex Male 1:17 AM CIRCULAR SAW EDGE FUSER Gender Identity Not on file Sexual Orientation Straight 09/22/2019 8: 21 PM CDT 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 Left message for patient regarding potential start delay for 01/29. Left callback information. ULAR SAW EDGE FUSER documented in this encounter Plan of Treatment Not on file documented as of this encounter Visit Diagnoses Not on filedocumented in this encounter Care Teams Deck Builder Relationship Specialty Start Date End Date Clara Stanley PA [address] [place] [address] PCP - General Nurse Practitioner 04/05/19 Jasper Canchola MD [address] [place] [address] Surgeon Thoracic Surgery 05/11/19 Alexis Lopez MD [address] [address] Office Technologist Pulmonary Disease 05/11/19 Kip Del Rio MD [address] [place] [address] Medical Oncologist/Speaking Unit Assembler Hematology and Oncology 05/11/19 Jacob Flynn MD [address] [place] [address] Radiation Oncologist Radiation Oncology 05/25/19 documented as of this encounter
--- OUTSIDE RECORDS SUMMARY | 2024-03-02 03:45 | XMS_ITS | Encounter Summary ---
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 Gender Identity Not on file Sexual Orientation Straight 09/22/2019 8: 21 PM CDT 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 on file Not on file documented as of this encounter Plan of Treatment Not on file documented as of this encounter Procedures Procedure Name Priority Date/Time Associated Diagnosis Comments RAD ONC ARIA SESSION SUMMARY 02/03/2021 8:38 AM UNDERWRITING CLERKS SUPERVISOR documented in this encounter Results * RAD ONC ARIA SESSION SUMMARY (02/03/2021 8:38 AM UNDERWRITING CLERKS SUPERVISOR) Course Name [id number] ARIA Course Plan Date 01/18/2021 1:45 PM ARIA Elapsed Days 3 ARIA Treatment Start Date 01/31/2021 ARIA Treatment Site lung dpv ARIA Dose Given To Date (cGy) 1,200 ARIA Session Dosage Given (cGy) 400 ARIA Plan ID MEDIASTINUM ARIA Fractions Treated 3 ARIA Prescribed Dose Per Fraction (cGy) 400 ARIA Prescribed Total Dose (cGy) 6,000 ARIA 02/03/2021 8:38 AM UNDERWRITING CLERKS SUPERVISOR us Not In File Miscellaneous RADIATION ONCOLOGY ORD ERABLES Final Result ARIA documented in this encounter Visit Diagnoses Not on filedocumented in this encounter Care Teams Facility Maintenance Supervisor Relationship Specialty Start Date End Date Clara Stanley PA [address] [place] [id number] PCP - General Nurse Practitioner 04/05/19 Jasper Canchola MD [address] [place] [address] Surgeon Thoracic Surgery 05/11/19 Alexis Lopez MD [address] [facility] [address] [address] Mushroom Packer Pulmonary Disease 05/11/19 Kip Del Rio MD [address] [facility] [address] [place] [address] Medical Oncologist/Breaker Up Machine Operator Hematology and Oncology 05/11/19 Jacob Flynn MD [address] [facility] [address] [place] [address] Radiation Oncologist Radiation Oncology 05/25/19 documented as of this encounter
--- OUTSIDE RECORDS SUMMARY | 2024-03-02 03:45 | XMS_ITS | Encounter Summary ---
Author Organization [facility] Address [address] [facility] [address] [facility] [address] [place] [address] Care Team Providers Care Water Supply Engineer Name Role Phone Clara Stanley Primary Care Provider + Jasper Canchola MD Unavailable Alexis Lopez MD Unavailable Kip Del Rio MD Unavailable Jacob Flynn MD Unavailable Encounter Details Date Type Department Care Team (Late st Contact Info) Description 02/01/2021 10:30 AM NETWORK APPLICATIONS SPECIALIST Office Visit [facility] Pulmonology [address] 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 on file Not on file documented as of this encounter Last Filed Vital Signs Vital Sign Reading Time Taken Comments Blood Pressure 152/79 02/01/2021 10:35 AM NETWORK APPLICATIONS SPECIALIST Pulse 71 02/01/2021 10:35 AM NETWORK APPLICATIONS SPECIALIST Temperature 36.3 ??C (97.3 ??F) 02/01/2021 1 0:35 AM NETWORK APPLICATIONS SPECIALIST Respiratory Rate 18 02/01/2021 10:3 5 AM NETWORK APPLICATIONS SPECIALIST Oxygen Saturation 97% 02/01/2021 10: 35 AM NETWORK APPLICATIONS SPECIALIST Inhaled Oxygen Concentration - - Weight 162.8 kg (358 lb 12.8 oz) 2020 10:35 AM NETWORK APPLICATIONS SPECIALIST Height - - Body Mass Index 44.85 01/08/2021 10:31 AM CDT documented in this encounter Progress Notes * Alexis Lopez MD - 02/01/2021 10:30 AM CST Images from the original note were not included. Progress Note Patient: Kwaku Kulkarni ( - 1965) is a 55 y.o. male. Visit Date: 02/01/2021 No chief complaint on file. History of Present Illness: The patient is a pleasant 55 year old male that started stereotactic radiation for his carcinoid tumor 2 days ago. He is receiving this at [facility]. He is not been using his CPAP for about thelast 6 months but is going to start using it again. He was requesting new supplies. He has a ResMedmed unit. He states that his breathing is comfortable and is only using his Symbicort about 2 timesper week. He does complain of a cough and is using Flonase and Zyrtec. Past Medical History: Past Medical History: Diagnosis [...] 20 mg by mouth every morning No current facility-administered medications for this visit. [...] Social Determinants of Health Financial Resource Strain: Not on file Food Insecurity: Not on file Transportation Needs: Not on file Physical Activity: Not on file Stress: Not on file Social Connections: Not on file Intimate Partner Violence: Not on file Housing Stability: Not on file Review of Systems: Review of Systems Constitutional: Negative for appetite change, fever and unexpected weight change. HENT: Negative for rhinorrhea, sinus pressure, sinus pain, sore throat and tinnitus. Respiratory: Positive for cough and shortness of breath. Negative for wheezing. Cardiovascular: Negative for chest pain, palpitations and leg swelling. Gastrointestinal: Negative for abdominal pain, diarrhea and nausea. Genitourinary: Negative for hematuria. Musculoskeletal: Negative for arthralgias, back pain and myalgias. Skin: Negative for color change. Allergic/Immunologic: Negative for environmental allergies and food allergies. Neurological: Negative for dizziness and light-headedness. Physical Exam: Vitals: 02/01/21 1035 BP: 152/79 Pulse: 71 Resp: 18 Temp: 36.3 ??C (97.3 ??F) SpO2: 97% Weight: (!) 162.8 kg (358 lb 12.8 oz) Physical Exam Constitutional: Appearance: He is well-developed. [...] person, place, and time. Data Reviewed Images: PET/CT Dotatate Skull to Thigh Result Date: 01/08/2021 1. 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 2. 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 Dictated by: Vinicio Reeder MD The radiology attending physician has personally reviewed this study, and had reviewed and/or edited this written report and agrees with it. Electronically signed by: Prabhu Montanez M.D., Ph.D. Assessment and Plan: Diagnoses and all orders for this visit: Mild intermittent asthma without complication (Primary) Assessment & Plan: I did recommend that the patient try to use the Symbicort b.i.d. for period of time to see if this will resolve the coughing. Continues to use the albuterol on a p.r.n. basis. He continues on Flonaseand Zyrtec daily. He does have some reflux symptoms and I did recommend that he try an [id number] proton pump inhibitor. LEONOR (obstructive sleep apnea) Assessment & Plan: The patient has an auto titrating CPAP unit with a range of 5-20 cm water pressure. He is going to restart CPAP therapy. I will send an order to [facility] for new supplies. Carcinoid tumor of right lung Comments: The patient did start on stereotactic radiation to the right paratracheal area 2 days ago. Rendering Provider & Department: Alexis Lopez MD ORK APPLICATIONS SPECIALIST documented in this encounter Miscellaneous Notes * Assessment & Plan Note - Alexis Lopez MD - 02/01/2021 11:10 AM NETWORK APPLICATIONS SPECIALIST Associated Problem(s): LEONOR (obstructive sleep apnea) The patient has an auto titrating CPAP unit with a range of 5-20 cm water pressure. He is going to restart CPAP therapy. I will send an order to [facility] for new supplies. ORK APPLICATIONS SPECIALIST * Assessment & Plan Note - Alexis Lopez MD - 02/01/2021 11:10 AM NETWORK APPLICATIONS SPECIALIST Associated Problem(s): Mild intermittent asthma without complication I did recommend that the patient try to use the Symbicort b.i.d. for period of time to see if this will resolve the coughing. Continues to use the albuterol on a p.r.n. basis. He continues on Flonaseand Zyrtec daily. He does have some reflux symptoms and I did recommend that he try an [id number] proton pump inhibitor. ORK APPLICATIONS SPECIALIST documented in this encounter Plan of Treatment Not on file documented as of this encounter Visit Diagnoses Diagnosis Mild intermittent asthma without complication- Primary LEONOR (obstructive sleep apnea) Obstructive sleep apnea (adult) (pediatric) Carcinoid tumor of right lung documented in this encounter Care Teams Water Supply Engineer Relationship Specialty Start Date End Date Clara Stanley PA [address] [place] [address] PCP - General Nurse Practitioner 04/05/19 Jasper Canchola MD [address] [place] [address] Surgeon Thoracic Surgery 05/11/19 Alexis Lopez MD [address] [address] [place] Pulmonary Disease 05/11/19 Kip Del Rio MD [address] [facility] [address] [place] [address] Medical Oncologist/Career And Transition Teacher Hematology and Oncology 05/11/19 Jaocb Flynn MD [address] [facility] [address] [place] [address] Radiation Oncologist Radiation Oncology 05/25/19 documented as of this encounter
--- OUTSIDE RECORDS SUMMARY | 2024-03-02 03:45 | XMS_ITS | Encounter Summary ---
Author Organization [facility] Address [address] [place] [address] Care Team Providers Care Machine Feeder Raw Stock Name Role Phone Clara Stanley Primary Care Provider + Jasper Canchola MD Unavailable Alexis Lopez MD Unavailable [phone] Kip Del Rio MD Unavailable Jcaob Flynn MD Unavailable Encounter Details Date Type Department Care Team (Late st Contact Info) Description 02/05/2021 Orders Only RAD ONC TREATMENTS Miscellaneous, Not [...] on file Legal Sex Male 1:17 AM SQL REPORT WRITER Gender Identity Not on file Sexual Orientation Straight 09/22/2019 8: 21 PM CDT 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 on file Not on file documented as of this encounter Plan of Treatment Not on file documented as of this encounter Procedures Procedure Name Priority Date/Time Associated Diagnosis Comments RAD ONC ARIA SESSION SUMMARY 02/05/2021 1:43 PM SQL REPORT WRITER documented in this encounter Results * RAD ONC ARIA SESSION SUMMARY (02/05/2021 1:43 PM SQL REPORT WRITER) Course Name [id number] ARIA Course Plan Date 01/18/2021 1:45 PM ARIA Elapsed Days 5 ARIA Treatment Start Date 01/31/2021 ARIA Treatment Site lung dpv ARIA Dose Given To Date (cGy) 2,000 ARIA Session Dosage Given (cGy) 400 ARIA Plan ID MEDIASTINUM ARIA Fractions Treated 5 ARIA Prescribed Dose Per Fraction (cGy) 400 ARIA Prescribed Total Dose (cGy) 6,000 ARIA 02/05/2021 1:43 PM SQL REPORT WRITER us Not In File Miscellaneous RADIATION ONCOLOGY ORD ERABLES Final Result ARIA documented in this encounter Visit Diagnoses Not on filedocumented in this encounter Care Teams Machine Feeder Raw Stock Relationship Specialty Start Date End Date Clara Stanley PA [address] [place] [address] PCP - General Nurse Practitioner 04/05/19 Jasper Canchola MD [address] [place] [address] Surgeon Thoracic Surgery 05/11/19 Alexis Lopez MD [address] [facility] [address] [address] Computational Physicist Pulmonary Disease 05/11/19 Kip Del Rio MD [address] [facility] [address] [place] [address] Medical Oncologist/Financial Reporting Director Hematology and Oncology 05/11/19 Jacob Flynn MD [address] [facility] [address] [place] [address] Radiation Oncologist Radiation Oncology 05/25/19 documented as of this encounter
--- OUTSIDE RECORDS SUMMARY | 2024-03-02 03:46 | XMS_ITS | Encounter Summary ---
Author Organization [facility] Address [address] [place] [address] Care Team Providers Care Form Maker Name Role Phone Clara Stanley Primary Care Provider + Jasper Canchola MD Unavailable Alexis Lopez MD Unavailable Kip Del Rio MD Unavailable Jacob Flynn MD Unavailable Encounter Details Date Type Department Care Team (Late st Contact Info) Description 08/10/2019 8:30 AM CDT - 08/10/2019 10:00 AM CDT Surgery [facility] Operating Room [address] [place] [address] Jasper Canchola MD [id number] [place] [address] BRONCHOSCOPY Surgery Details Date/Time Status Location OR Service Patient Class Case Class Case Type Trauma Case? 08/10/2019 8:30 AM Posted [facility] OR POD 3 [phone] Cardiothoracic Outpatient Elective Panel 1 Procedure LRB Anes Op Region Wound Class Comments BRONCHOSCOPY N/A Choice Bronchus Class II - Clean Contaminated Surgeon Surgeon Role Service Panel Jasper Canchola MD Primary Cardiothoracic 1 Jorge Gonzales MD Fellow Cardiothoracic 1 documented in this encounter Social History Tobacco Use Types Packs/Day Years Used Date Smoking Tobacco: Never Smokeless Tobacco: Never Alcohol Use Standard Drinks/Week Comments Yes 2 (1 standard drink = 0.6 oz pur e alcohol) Sex and Gender Information Value Date Recorded Sex Assigned at Not on file Legal Sex Male 1:17 AM [employer]IL[employer] Gender Identity Not on file Sexual Orientation Straight 09/22/2019 8: 21 PM CDT documented as of this encounter Last Filed Vital Signs Vital Sign Reading Time Taken Comments Blood Pressure 128/86 08/10/2019 10:00 AM CDT Pulse 80 08/10/2019 10:00 AM CDT Temperature 36.6 ??C (97.9 ??F) 08/10/2019 10:00 AM C DT Respiratory Rate 20 08/10/2019 10:00 AM CDT Oxygen Saturation 98% 08/10/2019 10:00 AM CDT Inhaled Oxygen Concentration - - Weight 145.2 kg (320 lb) 08/03/2019 3:05 PM CDT Height 190.5 cm (6' 3 ) 08/03/2019 3:05 PM CDT Body Mass Index 40 08/03/2019 3:05 PM CDT documented in this encounter Discharge Instructions * Discharge Instructions* Shelby España RN - 08/10/2019 9:15 AM CDT Resume home medications. No changes to activity, diet or medications. 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 Do not drive, operate heavy machinery or make any important life or legal decisions for 24 hours. Advance diet slowly to avoid nausea/vomiting. May call Dr. Canchola's office with any questions/concerns: [phone] * Attachments The following attachments cannot be sent through Care Everywhere. * Flexible Bronchoscopy (Discharge Care) (Bulgarian) * [facility] PATHWAY TO EXCELLENT CARE AFTER SURGERY documented in this encounter Medications at Time of Discharge amLODIPine (NORVASC) 10 mg tabletIndications :hypertension Take 1 tablet (10 mg total) by mouth every morning 04/10/2019 acetaminophen (TYLENOL) 325 mg tabletIndications :Fever,Pain Take 2 tablets (650 mg total) by mouth every 4 (four) hours as needed for pain This medication can be found over the counter, please follow the instructions listed on the packaging. 30 tablet 05/30/2019 0 acetaZOLAMIDE ER (DIAMOX SEQUAL) 500 mg capsuleIndication s:idiopathic intracranial hypertension Take 500 mg by mouth 2 (two) times a day 1 albuterol HFA (PROVENTIL HFA,VENTOLIN HFA,PROAIR HFA) 90 mcg/actuation inhaler INL 2 PFS PO Q 4 H PRN 07/27/2019 0 albuterol HFA (PROVENTIL HFA,VENTOLIN HFA,PROAIR HFA) 90 mcg/actuation inhaler INL 2 PFS PO Q 4 H PRN 07/27/2019 1 benzonatate (TESSALON) 100 mg capsuleIndication s:Cough Take 1 capsule (100 mg total) by mouth 3 (three) times a day as needed for cough 90 capsule 1 06/15/2019 0 cefuroxime (CEFTIN) 500 mg tabletIndications :Upper Respiratory/HEENT Infection Take 500 mg by mouth 2 (two) times a day 0 cetirizine (ZyrTEC) 10 mg tabletIndications :Seasonal Allergic Rhinitis Take 10 mg by mouth every morning 2 fluticasone propionate (FLONASE) 50 mcg/actuation nasal spray 06/12/2019 2 gabapentin (NEURONTIN) 300 mg capsule Take 1 capsule (300 mg total) by mouth nightly for 14 days 14 capsule 05/30/2019 1 gabapentin (NEURONTIN) 300 mg capsuleIndication s:Postoperative Acute Pain Take 1 capsule (300 mg total) by mouth 3 (three) times a day as needed (pain) 90 capsule 1 06/09/2019 0 LORazepam (ATIVAN) 0.5 mg tabletIndications :anxiety Take 0.5 mg by mouth every 6 (six) hours as needed for anxiety 2 oxyCODONE (ROXICODONE) 10 mg tabletIndications :Pain Take 1-1.5 tablets (10-15 mg total) by mouth every 3 (three) hours as needed for pain 42 tablet 05/30/2019 1 polyethylene glycol (MIRALAX) 17 gram packetIndications :constipation Take 1 packet (17 g total) by mouth daily This medication can be found over the counter, please follow the instructions listed on the packaging. 05/31/2019 0 pravastatin (PRAVACHOL) 20 mg tabletIndications :hyperlipidemia Take 1 tablet (20 mg total) by mouth every morning 04/10/2019 4 documented as of this encounter Discharge Disposition Disposition Code Departure Means Destination Discharge to home or self care documented in this encounter H&P Notes * Jasper Canchola MD - 08/10/2019 7:48 AM CDT I have reviewed the H&P, examined the patient, and endorse the findings as written. Plan of Care : Based on the above findings, I consider Kwaku Kulkarni to be an acceptable riskfor : Procedure(s): BRONCHOSCOPY Source Note - Laura Miguel, TJ - 08/03/2019 4:41 PM CDT Images from the original note were not included. Center for Preoperative Assessment and Planning Preoperative Evaluation Record Evaluation type/location: [facility] Planned procedure site: [facility] (Pods 2/3/5/[facility]) Date: 08/03/19 Anesthesia Evaluation NOTE: This note represents a preoperative evaluation initiated via telephone interview. NO PHYSICALEXAM was performed at the time of initial assessment. A physical exam may be added to this note anddocumented below. Kwaku Kulkarni is a 54 y.o. male Procedure(s): BRONCHOSCOPY Pre-Op Diagnosis Codes: * Cough, persistent [R05] HISTORY HPI Kwaku Kulkarni is a 54 y.o. male who is being evaluated prior to undergoing bronchoscopy for persistent cough Past Medical History Information obtained from: patient and chart. Neurological + Psychiatric history - anxiety Comments: intracrainal htn Cardiovascular + Other arrhythmia (IRBBB) - RBBB. Hypertension: ideopathic intracranial hypertension. Renal / + Renal disease - ARF Musculoskeletal/Pain + Chronic pain (dull pain on side since surgery) + Headaches (improved with diamox) Endocrine / Other + Obesity (BMI >30)- morbid obesity (BMI>40). + Cancer history- current cancer. Cancer type: lung ca. Functional Capacity Functional capacity: 4-6 METs Comments: Able to climb 2 flights or walk 4 blocks without sob or cp Does gardening, landscaping Review of Systems + productive cough (clear mucous with cough) + chronic pain (dull pain on side since surgery) + vision loss (contact lenses, corrective lenses) + unexpected wt change (lost weight since surgery, also trying to lose weight, denies decreased appetite) Patient's weight: decreased, 60 lbs, over last 6 months. Pertinent negatives: wheezing; SOB; recent cold/flu; fever; chest pain; palpitations; orthopnea; pedal edema; PND; heavy menses; Sickle Cell disease/trait; previous transfusion; transfusion reaction;melena/hematochezia; easy bruising; bleeding problems; syncope; dizziness; muscle weakness; numbness /tingling; hard of hearing; heartburn; nausea; dysphagia; diarrhea; dentures/partials; chipped/loose teeth; abdominal pain and diaphoresis Comments: Denies palpitations, sweating, flushing, vision changes, diarrhea, abd pain, htn PAT Summary and Plans Cardiac risk classification of planned procedure: intermediate cardiac risk. Preoperative assessment status: lab tests ordered. Initial preoperative evaluation discussed with: Robert Payton MD Additional comments: Kwaku Kulkarni is a 54 y.o. male who is being evaluated prior to undergoing an intermediate cardiac risk surgery. Revised Cardiac Risk Index factors are (none) for a total RCRI of 0 out of 6. Functional capacity is 4-6 METs. Obstructive sleep apnea (LEONOR) screening status -not assessed d/t TPAP Hx idiopathic intracranial hypertension. Takes diamox-discussed with attending. Okay to take on DOS Patient with No known exposure to COVID19 and no concerning symptoms of COVID19. Plan for pre-procedure COVID19 testing: Surgery date greater than 3 days from today. Pre-procedure COVID19 testing scheduled to be performed on 08-08-2019 at the [facility]. . Blood bank needs for day of procedure: None needed Pending labs/tests include: None This assessment was performed via telephone. Therefore the physical exam has been deferred to the day of surgery team. The patient was provided with preoperative instructions for their medications. The patient was instructed to shower/bathe the night prior and the morning of the planned procedure using an antibacterial soap. Patient instructions were provided in writing sent via [employer]PS mail. Patient verbalized understanding of preoperative plan. Preoperative evaluation performed by Laura Miguel NP on 07/2019 at 4:46 PM. . Patient Active Problem List Diagnosis ??? Right lower lobe pulmonary nodule ??? High grade neuroendocrine carcinoma (CMS/HCC) ??? Lung nodule ??? Primary cancer of right lower lobe of lung (CMS/HCC) ??? Carcinoid tumor of right lung ??? Malignant neoplasm of lower lobe of right lung (CMS/HCC) ??? LEIDA (acute kidney injury) (CMS/HCC) ??? Cough, persistent Past Medical History: Diagnosis Date ??? LEIDA (acute kidney injury) (CMS/HCC) ??? Carcinoid tumor of lung right lung ??? Chronic headaches 03/2019 IIH (idiopathic intracranial hypertension) ??? Hyponatremia ??? IIH (idiopathic intracranial hypertension) Past Surgical History: Procedure Laterality Date ??? APPENDECTOMY ??? BRONCHOSCOPY 05/30/2019 ??? COLONOSCOPY 2018 ??? COLONOSCOPY ??? ESOPHAGOGASTRODUODENOSCOPY 04/2019 ??? LUMBAR PUNCTURE 04/03/2019 ??? MEDIASTINOSCOPY 05/19/2019 Cervical Mediastinoscopy ??? THORACOTOMY 05/26/2019 THORACOTOMY LOBECTOMY / lymph node disection (Right) ??? TONSILLECTOMY No Known Allergies Med List Status: Nurse Complete Set By: Zenobia Adams RN at 08/03/2019 3:04 PM Taking? Last Dose Start Date End Date Provider acetaminophen (TYLENOL) 325 mg tablet 05/30/19 -- Kkee Pratt NP Take 2 tablets (650 mg total) by mouth every 4 (four) hours as needed for pain This medication can be found over the counter, please follow the instructions listed on the packaging. acetaZOLAMIDE ER (DIAMOX SEQUAL) 500 mg capsule -- -- Historical Provider, amLODIPine (NORVASC) 10 mg tablet 04/10/19 -- Historical Provider, benzonatate (TESSALON) 100 mg capsule Not Taking 06/15/19 -- Stephanie Bautista NP Take 1 capsule (100 mg total) by mouth 3 (three) times a day as needed for cough Patient not taking: Reported on 08/03/2019 cefuroxime (CEFTIN) 500 mg tablet -- -- Historical Provider, cetirizine (ZyrTEC) 10 mg tablet -- -- Historical Provider, gabapentin (NEURONTIN) 300 mg capsule 05/30/19 08/03/19 Keke Pratt NP Take 1 capsule (300 mg total) by mouth nightly for 14 days Patient taking differently: Take 300 mg by mouth nightly gabapentin (NEURONTIN) 300 mg capsule () Not Taking 06/09/19 07/09/19 Marleny Overton NP Take 1 capsule (300 mg total) by mouth 3 (three) times a day as needed (pain) Patient not taking: Reported on 08/03/2019 LORazepam (ATIVAN) 0.5 mg tablet -- -- Historical Provider, oxyCODONE (ROXICODONE) 10 mg tablet Not Taking 05/30/19 -- John Fernando MD Take 1-1.5 tablets (10-15 mg total) by mouth every 3 (three) hours as needed for pain Patient not taking: Reported on 08/03/2019 polyethylene glycol (MIRALAX) 17 gram packet Not Taking 05/31/19 -- Keke Pratt NP Take 1 packet (17 g total) by mouth daily This medication can be found over the counter, please follow the instructions listed on the packaging. Patient not taking: Reported on 08/03/2019 pravastatin (PRAVACHOL) 20 mg tablet 04/10/19 -- Historical Provider, No current facility-administered medications for this encounter. Current Outpatient Medications: ??? acetaminophen (TYLENOL) 325 mg tablet ??? acetaZOLAMIDE ER (DIAMOX SEQUAL) 500 mg capsule ??? amLODIPine (NORVASC) 10 mg tablet ??? cefuroxime (CEFTIN) 500 mg tablet ??? cetirizine (ZyrTEC) 10 mg tablet ??? gabapentin (NEURONTIN) 300 mg capsule ??? LORazepam (ATIVAN) 0.5 mg tablet ??? pravastatin (PRAVACHOL) 20 mg tablet ??? benzonatate (TESSALON) 100 mg capsule ??? gabapentin (NEURONTIN) 300 mg capsule ??? oxyCODONE (ROXICODONE) 10 mg tablet ??? polyethylene glycol (MIRALAX) 17 gram packet Social History Tobacco Use Smoking Status Never Smoker Smokeless Tobacco Never Used Substance and Sexual Activity Alcohol Use Yes ??? Alcohol/week: 2.0 - 3.0 standard drinks ??? Types: 2 - 3 Standard drinks or equivalent per week Substance and Sexual Activity Drug Use Never Family History Problem Relation Age of Onset ??? Cancer Mother ??? Heart disease Father ??? Cancer Father ??? Cancer Sister ??? Anesthesia problems Neg Hx There were no vitals filed for this visit. PT: No results found for requested labs within last 720 hours. INR: No results found for requested labs within last 720 hours. APTT: No results found for requested labs within last 720 hours. Hgb A1C: No results found for requested labs within last 720 hours. CBC RBC: No results found for requested labs within last 720 hours. RDW: No results found for requested labs within last 720 hours. MCHC: No results found for requested labs within last 720 hours. MCH: No results found for requested labs within last 720 hours. MCV: No results found for requested labs within last 720 hours. Hct: No results found for requested labs within last 720 hours. Hgb: No results found for requested labs within last 720 hours. WBC: No results found for requested labs within last 720 hours. MPV: No results found for requested labs within last 720 hours. Platelets: No results found for requested labs within last 720 hours. RDW CV: No results found for requested labs within last 720 hours. RDW Sd: No results found for requested labs within last 720 hours. BMP Glucose: No results found for requested labs within last 720 hours. Calcium: No results found for requested labs within last 720 hours. Sodium: No results found for requested labs within last 720 hours. Potassium: No results found for requested labs within last 720 hours. CO2: No results found for requested labs within last 720 hours. Chloride: No results found for requested labs within last 720 hours. BUN: No results found for requested labs within last 720 hours. Creatinine: No results found for requested labs within last 720 hours. Enzo index score: 100 * Constanza Ritchie MD - 08/10/2019 5:55 AM CDT Images from the original note were not included. I have reviewed the H&P, examined the patient, and endorse the findings as written, in additionto the following: Physical exam: General: alert, no distress HEENT: moist mocosa, EOM intact CV: no JVD, normal rate Pulmonary: unlabored breathing, symmetric chest rise Abdominal: soft, nondistended Extremities: warm and dry Neurologic: AOx3, no gross motor deficits Psychiatric: normal mood/affect Plan of Care: Based on these findings, I consider Tirso Marcelo to be an acceptable risk for PRBRNCHSC INCL FLUOR GDNCE DX W/CELL WASHG SPX [72153] (BRONCHOSCOPY) Center for Preoperative Assessment and Planning Preoperative Evaluation Record ?? Evaluation type/location: CPAP [facility] ?? Planned procedure site: [facility] (Pods 2/3/5/[facility]) ?? Date: 08/03/19 ?? Anesthesia Evaluation NOTE: This note represents a preoperative evaluation initiated via telephone interview. NO PHYSICALEXAM was performed at the time of initial assessment. A physical exam may be added to this note anddocumented below. ? Kwaku Kulkarni is a 54 y.o. male ?? Procedure(s): BRONCHOSCOPY ?? Pre-Op Diagnosis Codes: * Cough, persistent [R05] ?? HISTORY HPI Kwaku Kulkarni is a 54 y.o. male who is being evaluated prior to undergoing bronchoscopy for persistent cough ? Past Medical History Information obtained from: patient and chart. ?? Neurological + Psychiatric history - anxiety ?? Comments: intracrainal htn ? Cardiovascular + Other arrhythmia (IRBBB) - RBBB. Hypertension: ideopathic intracranial hypertension. ? Renal / + Renal disease - ARF ? Musculoskeletal/Pain + Chronic pain (dull pain on side since surgery) + Headaches (improved with diamox) ? Endocrine / Other + Obesity (BMI >30)- morbid obesity (BMI>40). + Cancer history- current cancer. Cancer type: lung ca. ? Functional Capacity Functional capacity: 4-6 METs Comments: Able to climb 2 flights or walk 4 blocks without sob or cp Does gardening, landscaping ? Review of Systems + productive cough (clear mucous with cough) + chronic pain (dull pain on side since surgery) + vision loss (contact lenses, corrective lenses) + unexpected wt change (lost weight since surgery, also trying to lose weight, denies decreased appetite) Patient's weight: decreased, 60 lbs, over last 6 months. Pertinent negatives: wheezing; SOB; recent cold/flu; fever; chest pain; palpitations; orthopnea; pedal edema; PND; heavy menses; Sickle Cell disease/trait; previous transfusion; transfusion reaction;melena/hematochezia; easy bruising; bleeding problems; syncope; dizziness; muscle weakness; numbness /tingling; hard of hearing; heartburn; nausea; dysphagia; diarrhea; dentures/partials; chipped/loose teeth; abdominal pain and diaphoresis Comments: Denies palpitations, sweating, flushing, vision changes, diarrhea, abd pain, htn ?? PAT Summary and Plans Cardiac risk classification of planned procedure: intermediate cardiac risk. Preoperative assessment status: lab tests ordered. Initial preoperative evaluation discussed with: Robert Payton MD Additional comments: Kwaku Kulkarni is a 54 y.o. male who is being evaluated prior to undergoing an intermediate cardiac risk surgery. Revised Cardiac Risk Index factors are (none) for a total RCRI of 0 out of 6. Functional capacity is 4-6 METs. Obstructive sleep apnea (LEONOR) screening status -not assessed d/t TPAP Hx idiopathic intracranial hypertension. Takes diamox-discussed with attending. Okay to take on DOS Patient with No known exposure to COVID19 and no concerning symptoms of COVID19. Plan for pre-procedure COVID19 testing: Surgery date greater than 3 days from today. Pre-procedure COVID19 testing scheduled to be performed on 08-08-2019 at the [facility]. . Blood bank needs for day of procedure: None needed Pending labs/tests include: None This assessment was performed via telephone. Therefore the physical exam has been deferred to the day of surgery team. The patient was provided with preoperative instructions for their medications. The patient was instructed to shower/bathe the night prior and the morning of the planned procedure using an antibacterial soap. Patient instructions were provided in writing sent via [employer] mail. Patient verbalized understanding of preoperative plan. Preoperative evaluation performed by Laura Miguel NP on 07/2019 at 4:46 PM. . ? Patient Active Problem List Diagnosis ??? Right lower lobe pulmonary nodule ??? High grade neuroendocrine carcinoma (CMS/HCC) ??? Lung nodule ??? Primary cancer of right lower lobe of lung (CMS/HCC) ??? Carcinoid tumor of right lung ??? Malignant neoplasm of lower lobe of right lung (CMS/HCC) ??? LEIDA (acute kidney injury) (CMS/HCC) ??? Cough, persistent ? Medical History Past Medical History: Diagnosis Date ??? LEIDA (acute kidney injury) (CMS/HCC) ? Carcinoid tumor of lung ? right lung ??? Chronic headaches 03/2019 ?? IIH (idiopathic intracranial hypertension) ??? Hyponatremia ? IIH (idiopathic intracranial hypertension) ? Surgical History Past Surgical History: Procedure Laterality Date ??? APPENDECTOMY ? BRONCHOSCOPY ?? 05/30/2019 ??? COLONOSCOPY ?? 2018 ??? COLONOSCOPY ? ESOPHAGOGASTRODUODENOSCOPY ?? 04/2019 ??? LUMBAR PUNCTURE ?? 04/03/2019 ??? MEDIASTINOSCOPY ?? 05/19/2019 ?? Cervical Mediastinoscopy ??? THORACOTOMY ?? 05/26/2019 ?? THORACOTOMY LOBECTOMY / lymph node disection (Right) ??? TONSILLECTOMY ? No Known Allergies ? Med List Status: Nurse Complete Set By: Zenobia Adams RN at 08/03/2019 3:04 PM ? Taking? Last Dose Start Date End Date Provider ?? acetaminophen (TYLENOL) 325 mg tablet ?? 05/30/19 -- Keke Pratt NP ? Take 2 tablets (650 mg total) by mouth every 4 (four) hours as needed for pain This medication can be found over the counter, please follow the instructions listed on the packaging. ?? acetaZOLAMIDE ER (DIAMOX SEQUAL) 500 mg capsule ?? -- -- Historical ProviderMD ?? amLODIPine (NORVASC) 10 mg tablet ?? 04/10/19 -- Historical ProviderMD ?? benzonatate (TESSALON) 100 mg capsule ?? Not Taking 06/15/19 -- Stephanie Bautista NP ? Take 1 capsule (100 mg total) by mouth 3 (three) times a day as needed for cough ? Patient not taking: Reported on 08/03/2019 ?? cefuroxime (CEFTIN) 500 mg tablet ?? -- -- Historical ProviderMD ?? cetirizine (ZyrTEC) 10 mg tablet ?? -- -- Historical ProviderMD ?? gabapentin (NEURONTIN) 300 mg capsule ?? 05/30/19 08/03/19 Keke Pratt NP ? Take 1 capsule (300 mg total) by mouth nightly for 14 days ? Patient taking differently: Take 300 mg by mouth nightly ?? gabapentin (NEURONTIN) 300 mg capsule () ?? Not Taking 06/09/19 07/09/19 Marleny Overton NP ? Take 1 capsule (300 mg total) by mouth 3 (three) times a day as needed (pain) ? Patient not taking: Reported on 08/03/2019 ?? LORazepam (ATIVAN) 0.5 mg tablet ?? -- -- Historical ProviderMD ?? oxyCODONE (ROXICODONE) 10 mg tablet ?? Not Taking 05/30/19 -- John Fernando MD ? Take 1-1.5 tablets (10-15 mg total) by mouth every 3 (three) hours as needed for pain ? Patient not taking: Reported on 08/03/2019 ?? polyethylene glycol (MIRALAX) 17 gram packet ?? Not Taking 05/31/19 -- Keke Pratt NP ? Take 1 packet (17 g total) by mouth daily This medication can be found over the counter, please follow the instructions listed on the packaging. ? Patient not taking: Reported on 08/03/2019 ?? pravastatin (PRAVACHOL) 20 mg tablet ?? 04/10/19 -- Historical Provider, ? No current facility-administered medications for this encounter. ?? Current Outpatient Medications: ??? acetaminophen (TYLENOL) 325 mg tablet ??? acetaZOLAMIDE ER (DIAMOX SEQUAL) 500 mg capsule ??? amLODIPine (NORVASC) 10 mg tablet ??? cefuroxime (CEFTIN) 500 mg tablet ??? cetirizine (ZyrTEC) 10 mg tablet ??? gabapentin (NEURONTIN) 300 mg capsule ??? LORazepam (ATIVAN) 0.5 mg tablet ??? pravastatin (PRAVACHOL) 20 mg tablet ??? benzonatate (TESSALON) 100 mg capsule ??? gabapentin (NEURONTIN) 300 mg capsule ??? oxyCODONE (ROXICODONE) 10 mg tablet ??? polyethylene glycol (MIRALAX) 17 gram packet ?? Social History ?? Tobacco Use Smoking Status Never Smoker Smokeless Tobacco Never Used ? Substance and Sexual Activity Alcohol Use Yes ??? Alcohol/week: 2.0 - 3.0 standard drinks ??? Types: 2 - 3 Standard drinks or equivalent per week ? Substance and Sexual Activity Drug Use Never ? Family History Problem Relation Age of Onset ??? Cancer Mother ? Heart disease Father ? Cancer Father ? Cancer Sister ? Anesthesia problems Neg Hx ? Vitals There were no vitals filed for this visit. ?? PT: No results found for requested labs within last 720 hours. INR: No results found for requested labs within last 720 hours. APTT: No results found for requested labs within last 720 hours. Hgb A1C: No results found for requested labs within last 720 hours. CBC RBC: No results found for requested labs within last 720 hours. RDW: No results found for requested labs within last 720 hours. MCHC: No results found for requested labs within last 720 hours. MCH: No results found for requested labs within last 720 hours. MCV: No results found for requested labs within last 720 hours. Hct: No results found for requested labs within last 720 hours. Hgb: No results found for requested labs within last 720 hours. WBC: No results found for requested labs within last 720 hours. MPV: No results found for requested labs within last 720 hours. Platelets: No results found for requested labs within last 720 hours. RDW CV: No results found for requested labs within last 720 hours. RDW Sd: No results found for requested labs within last 720 hours. ?? BMP Glucose: No results found for requested labs within last 720 hours. Calcium: No results found for requested labs within last 720 hours. Sodium: No results found for requested labs within last 720 hours. Potassium: No results found for requested labs within last 720 hours. CO2: No results found for requested labs within last 720 hours. Chloride: No results found for requested labs within last 720 hours. BUN: No results found for requested labs within last 720 hours. Creatinine: No results found for requested labs within last 720 hours. ?? Enzo index score: 100 Cosigned by Jasper Canchola MD at 08/10/2019 6:54 AM CDT documented in this encounter Miscellaneous Notes * Perioperative Nursing Note - Shelby España RN - 08/10/2019 10:37 AM CDT Reviewed dc orders with patient and patient's Esther (via telephone). Both verbalized understanding. IV dc with catheter intact. Dr. Canchola at bedside to update patient. Patient reports all belongings returned. Escorted to car via wheelchair for dc home with . * Brief Op Note - Jorge Gonzales MD - 08/10/2019 8:30 AM CDT Operative Progress Note Surgical Team: Surgeon(s) and Role: * Jasper Canchola MD - Primary * Jorge Gonzales MD - Fellow Anesthesiologist: Keaton Beck MD Composite Science Teacher: Cuauhtemoc Solis MD Thread Singer: Rickey Booker RN Scrub: ST [place] DATE OF SURGERY : 08/10/2019 Preoperative Diagnosis: Pre-op Diagnosis * Cough, persistent [R05] Postoperative Diagnosis: Post-op Diagnosis * Cough, persistent [R05] Procedure(s): Procedure(s) (LRB): BRONCHOSCOPY (N/A) Operative Findings: Well-healed right bronchial anastomosis, no stricture, no dehiscence. Mild erythema diffuse throughout bilateral main bronchi. Performed right side bronchial lavage and sent for cultures. Estimated Blood Loss: No blood loss documented. Intraoperative Fluids: See anesthesia record Specimens: No specimen collected in procedure Implants: Nothing was implanted during the procedure Blood/Blood Products Transfused: 0 mls Complications: None Condition on Discharge from the operating room was stable Jorge Gonzales MD Date: 08/10/2019 Time: 8:48 AM TEACHING ATTESTATION : I was present and directly participated in the entire procedure (including opening and closing). Cosigned by Jasper Canchola MD at 08/10/2019 9:34 AM CDT * Op Note - Jasper Canchola MD - 08/10/2019 12:00 AM CDT Preoperative Diagnosis Post lobectomy cough. Postoperative Diagnosis Post lobectomy cough. Operative Procedure Diagnostic flexible bronchoscopy. Surgeon Jasper Canchola MD. Merchandising Director Jorge Gonzales. Anesthesia General. 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 This operation was somewhat challenging because of a previous mediastinoscopy and the patient's largebody habitus. In order to obtain complete clearance of the subcarinal lymph nodes, I elected to divide the right main bronchus, thereby fully exposing the anterior and posterior aspect of the subcarinal space for a radical node dissection. The right main bronchus was then reapposed with a running suture of PDS material. Postoperatively the patient did very well. However, he has had a persistent cough productive of clear mucoid secretions. He denied any hemoptysis. His chest imaging looked quite satisfactory. Operative Procedure The patient was brought to the operating room, anesthetized. A laryngeal mask airway was placed. Flexible bronchoscope was advanced. The entire airway was visualized to the subsegmental level. On theright side the right main bronchial anastomosis was completely healed and widely patent. There was no evidence of granulation or residual suture material. The right lower lobe bronchial stump was intact and the right middle lobe bronchus was widely patent. The left side was also examined and no abnormality detected. Random tracheobronchial washings were submitted for culture. The scope was withdrawn. The patient was awakened, extubated, and transferred to the recovery room in stable condition. I was present throughout this entire operative procedure and there were no complications noted. Job ID/VF Job ID: [id number] * Pre-Procedure Instructions - Laura Miguel NP - 08/03/2019 4:35 PM CDT Center for Preoperative Assessment and Planning CPAP Clinic Location: [facility] The night before your surgery: * Do not eat or drink anything after midnight. This includes candy, mint, gums, chewable antacids (TUMS, Rolaids) and cough drops The morning of your surgery: * You may brush your teeth and rinse your mouth out. * Do not glue your dentures. * Do not wear jewelry, body piercings, makeup, hairpins, false eyelashes or contact lenses to the hospital. * Leave any valuables at home or with your family. You may want to bring a credit card if you want to use our Mobile [facility] for your discharge medications. If you have an implantable device with a remote, bring the remote with you on the day of surgery. Outpatient Surgery: * You must have a responsible adult drive you home and stay with you for 24 hours after your surgery * You cannot be alone at home or in a hotel * Please call your surgeon's office if you do not have someone to drive you home and/or stay with you after surgery * Please bring any items you may need to spend the night in the hospital. Sometimes patients need to be cared for in the hospital overnight. Instructions For Your Medications: Pre-Surgery Instructions: Medication Instructions ??? acetaminophen (TYLENOL) 325 mg tablet Take on day of surgery if needed ??? acetaZOLAMIDE ER (DIAMOX SEQUAL) 500 mg capsule Take on day of surgery ??? amLODIPine (NORVASC) 10 mg tablet Take morning of surgery ??? cefuroxime (CEFTIN) 500 mg tablet Take morning of surgery ??? cetirizine (ZyrTEC) 10 mg tablet Take morning of surgery ??? LORazepam (ATIVAN) 0.5 mg tablet Take on day of surgery if needed ??? pravastatin (PRAVACHOL) 20 mg tablet Take on day of surgery ??? benzonatate (TESSALON) 100 mg capsule Don't take on day of surgery ??? gabapentin (NEURONTIN) 300 mg capsule Take morning of surgery ??? oxyCODONE (ROXICODONE) 10 mg tablet Take on day of surgery if needed ??? polyethylene glycol (MIRALAX) 17 gram packet Don't take on day of surgery General Instructions For Medications: ?? If prescribed a non-steroidal anti-inflammatory such as Celebrex, Meloxicam, or Naproxen by yoursurgeon, take as prescribed prior to surgery and discontinue all other non-steroidal anti-inflammatory medications such as excedrin, motrin, advil, ibuprofen, naproxen, aleve, meloxicam, celebrex, and celecoxib 5 days prior to surgery ?? If undergoing a neurological or spine procedure, stop all of these medications 5 days prior to your surgery: excedrin, motrin, advil, ibuprofen, aleve, naproxen, meloxicam, celebrex, celecoxib. ?? Stop all of these medications 7-14 days prior to your surgery: Vitamin E, Herbal medicines, DietPills ?? If you have pain, you may take tylenol (acetaminophen). Do not take more than 6 tablets or 3000 mg (3 g) within a 24 period. Call your surgeon and the CPAP clinic if any of the following happens before surgery: ?? Any changes in your health ?? You have a fever ?? You have any signs of an infection (chest, urinary tract or tooth) ?? You have been to the Emergency Room or were in the hospital ?? You have started taking any new medications ?? You have questions about a bowel prep or special diet before surgery * Perioperative Nursing Note - Zenobia Adams RN - 08/03/2019 3:25 PM CDT Center for Preoperative Assessment and Planning Perioperative Nursing Note Telephone Preoperative Evaluation ([facility]) - TELEPHONE ONLY, NO PHYSICAL EXAM Date: 08/03/19 Vitals: 08/03/19 1505 Weight: (!) 145.2 kg (320 lb) Height: 190.5 cm (6' 3 ) CHEST CIRCUMFERENCE: N/a Social History Tobacco Use Smoking Status Never Smoker Smokeless Tobacco Never Used Substance and Sexual Activity Alcohol Use Yes ??? Alcohol/week: 2.0 - 3.0 standard drinks ??? Types: 2 - 3 Standard drinks or equivalent per week Substance and Sexual Activity Drug Use Never Outpatient Medications Marked as Taking for the 08/10/19 encounter (Hospital Encounter) with Jasper Canchola MD Medication Sig Dispense Refill ??? acetaminophen (TYLENOL) 325 mg tablet Take 2 tablets (650 mg total) by mouth every 4 (four) hours as needed for pain This medication can be found over the counter, please follow the instructions listed on the packaging. 30 tablet ??? acetaZOLAMIDE ER (DIAMOX SEQUAL) 500 mg capsule Take 500 mg by mouth 2 (two) times a day ??? amLODIPine (NORVASC) 10 mg tablet Take 10 mg by mouth every morning ??? cefuroxime (CEFTIN) 500 mg tablet Take 500 mg by mouth 2 (two) times a day ??? cetirizine (ZyrTEC) 10 mg tablet Take 10 mg by mouth every morning ??? gabapentin (NEURONTIN) 300 mg capsule Take 1 capsule (300 mg total) by mouth nightly for 14 days (Patient taking differently: Take 300 mg by mouth nightly ) 14 capsule 0 ??? LORazepam (ATIVAN) 0.5 mg tablet Take 0.5 mg by mouth every 6 (six) hours as needed for anxiety ??? pravastatin (PRAVACHOL) 20 mg tablet Take 20 mg by mouth every morning Implants No active implants to display in this view. SKIN Piercings Remaining: No SCREENINGS Pain Assessment: No/denies pain Ghotra Fall Risk Score (Retired): 15 Enzo index score: 100 Is someone currently physically or emotionally hurting you or your family?: Denies NUTRITION MEDINA Nutrition and Function History Questionnaire Is BMI < 20?: No Have you lost any weight in the past 6 months without trying? : Yes(patient states I lost about 60Ibs)) Have you eaten < 50% of normal in the past 2 weeks without trying?: No Have you experienced any of the following in the past month?: No Symptom Score: 0 Has your activity level decreased over the past 6 months or do you use an assistive device such as a walker, cane, or wheelchair?: Yes Total Score: 2 PATIENT CARE PLANNING Advance Directives (For Healthcare) Advance Directive: Patient does not have advance directive Communication/Iron Handler Needs Communication Needs: Contacts, Glasses Assistive Devices/DME: Eyeglasses Discharge Planning Type of Residence: Private residence Living Arrangements: Spouse/significant other Support Systems: Spouse/significant other(stake driver: (esther)) Patient expects to be discharged to:: Private residence ADDITIONAL COMMENTS/ FOLLOW UP COVID test scheduled for 08-07 at [facility] * Pre-Procedure Instructions - Zenobia Adams RN - 08/03/2019 3:24 PM CDT PRE-SURGICAL INSTRUCTIONS ??? General Information ?? Surgery location provided to patient. ?? Arrival time and surgical time will be provided by your surgeon. ?? Wear something clean, loose, comfortable and easy to get in and out of. ?? Leave your valuables and any jewelry at home (No metal or piercings are allowed in the operatingroom) ?? Bring your insurance card, a photo ID (like a Surgical Supervisor's license) and a method of payment for any insurance copay, deductible, or copay for discharge medications. ?? Bring a complete, up to date list of all of your medications including any over the counter medications or supplements you may take. ? How To Prepare Your Skin For Surgery Evening Before and Morning of Surgery Scrub Instructions: Antiseptic/antibacterial soap will decrease the amount of germs on your skin. It is important to minimize the risk of getting an infection by doing the following: ?? Change all the linens on the bed the night before surgery so you are sleeping on clean fresh sheets and pillowcases. ?? Shower the evening before and the morning of surgery with an antibacterial soap such as Dial or a surgical soap known as chlorhexidine (Hibiclens). You can purchase this soap at any pharmacy or department store or come by our [facility] CPAP clinic and we will give it to you free of charge. Do not use this soap on your face or hair. ?? Wash your hair and face with your regular shampoo (no conditioners) and facial cleanser. ?? Take a shower using ?? cup (2 oz.) of antiseptic soap applied to a clean fresh washcloth. Scrub your entire body from the neck down. If you can't reach the surgical site, such as your back, have someone help you with your shower. Rinse thoroughly and dry yourself off with a clean fresh dry towel. ?? Wear clean clothes or pajamas to sleep in and on morning of surgery. ?? Nothing extra on the skin or hair such as deodorant, makeup, hair products, lotions, powders, Vaseline, creams, or perfumes the evening before and the morning of surgery. ?? The morning of the surgery repeat the shower process with the remaining ?? cup (2 oz.) of surgical scrub using another fresh wash cloth and towel. ?? Do not shave the morning of surgery. ?? REMEMBER no deodorant, make-up, lotions, powders, creams, Vaseline, oils, conditioners or hair products the morning of the surgery. ??? Nutrition Information: Having surgery is like running a marathon. Here are some steps to help you get ready. Please remember, always follow the nutritional guidance of your physician. You may also contact the [facility] Dietitian, Ama Amish, @ [phone]. ?? Increase energy needs: Your body uses a lot of energy during and after surgery. Adding calories by adding foods with extra nutrients such as nuts, dried fruits, eggs and cheese. ?? Major Workout: In surgery, you'll burn more energy than you would during a 2 1/2 hour race. Increasing your carbohydrate (carb) intake a few days prior can keep you from running out of energy. ?? Muscle Loss: After using up carb and protein, the body starts breaking down muscle to create energy. Muscle loss can lead to lower strength and longer recovery time. Protect your muscles by addinghigh protein foods to each meal or snack. Aim to eat a protein source at each meal and snack. ?? Examples of good sources of protein: Animal Products (meat, fish, eggs, milk, hard cheese, and Guatemalan yogurt). Plant sources (tofu, edamame, beans, nuts and nut butters). ?? You may benefit from including a nutritional protein drink in the days before and after surgery.Many are available at grocery stores, pharmacies and on-line retailers. Some examples: Patients with diabetes (Premier Protein, Ensure High Protein, Glucerna Shakes). Patients with kidney disease (Boost Breeze, Ensure clear, Premier Protein-vanilla only, Nepro Shakes). All Other Patients (Ensure, Boost, Muscle Milk, Orgain-plant bases, Newby-plant bases, [place]aker Breakfast Essentials). ??? If your surgeon's office has not notified you of your surgery time by NOON THE DAY BEFORE your surgery, please call [phone] and ask for your surgeon's office. documented in this encounter Plan of Treatment Not on file documented as of this encounter Procedures Procedure Name Priority Date/Time Associated Diagnosis Comments AEROBIC CULTURE AND GRAM STAIN Routine 08/10/2019 8:50 AM CDT MYCOLOGY (FUNGAL) CULTURE Routine 08/10/2019 8:50 AM CDT BRONCHOSCOPY 08/10/2019 8:31 AM CDT Cough, persistent documented in this encounter Results * Aerobic culture and gram stain Bronchial washing Bronchial (08/10/2019 8:50 AM CDT) Direct Specimen Exam Stain: Cytospin gram stain shows: Abundant polymorphonuclear leukocytes seen. Abundant squamous epithelial cells seen indicating excessive oral pharyngeal contamination Other cellular material present. Few mixed bacterial migue seen on Gram stain. [facility] Report Final Report: Growth indicates upper respiratory migue. [facility] Organism GROWTH INDICATES UPPER RESPIRATORY MIGUE. [facility] Bronchial washing (Bronchial) 08/10/2019 8:50 AM CDT 08/10/2019 12:10 PM CDT Narrative [facility] - 08/12/2019 9:15 AM CDT Tracheo-bronchial washing Testing performed by [facility] ([phone]) Specimens submitted from normally sterile body sites will have all bacterial morphotypes identified. ??Specimens that contain grossly mixed migue and/or are from body sites that are not normally sterile will be examined for Staphylococcus aureus, Pseudomonas aeruginosa, beta-hemolytic strep, vancomycin-resistant Enterococcus and fungus. ??If any of these are isolated, the organism will be reported. Current interpretive data was last revised on 2016. Jasper Canchola MD LAB MICROBIOLOGY - GENERA L ORDERABLES Final Result [facility] Department [place] [address] * (ABNORMAL) Mycology (fungal) culture Bronchial washing Bronchial (08/10/2019 8:50 AM CDT) Report Final Report: Rare Yeast Stephanie pneumonia is very rare and requires a histopathological diagnosis. ??The recovery of these organisms in routine culture, in most cases, only represents overgrowth of the organism secondary to antimicrobial therapy. Please contact the microbiology laboratory at [phone] if identification or susceptibility testing is clinically indicated. (.) [facility] Organism YEAST [facility] Bronchial washing (Bronchial) 08/10/2019 8:50 AM CDT 08/10/2019 12:08 PM CDT [facility]ative [facility] - 09/07/2019 9:33 AM CDT Tracheo-bronchial washing Testing performed by [facility] ([phone]). Jasper Canchola MD LAB MICROBIOLOGY - GENERA L ORDERABLES Final Result [facility] Department [place] [address] documented in this encounter Visit Diagnoses Diagnosis Cough, persistent- Primary Cough, persistent documented in this encounter Admitting Diagnoses Diagnosis Cough, persistent documented in this encounter Administered Medications Inactive Administered Medications - up to 3 most recent administrations Medication Order MAR Action Action Date Dose Rate Site heparin 5,000 unit/mL injection 5,000 Units 5,000 Units, subcutaneous, Once, On Thu08/10/19 at 0800, For 1 dose, Pre-Op, Indications: Deep Vein Thrombosis PreventionIndications: Deep Vein Thrombosis Prevention Given 08/10/2019 8:08 AM CDT 5,000 Units Right Lower Abdomen Lactated Ringer's (LR) infusion 30 mL/hr, intravenous, Continuous, Starting on Thu08/10/19 at 0800, Pre-Op New Bag 08/10/2019 7:41 AM CDT 30 mL/hr 30 mL/hr lidocaine PF (XYLOCAINE) 10 mg/mL (1 %) preservative free injection As needed, Starting on Thu08/10/19 at 0900, Intra-Op Given 08/10/2019 9:00 AM CDT 10 mL documented in this encounter Discontinued Medications Medication Sig Discontinue Reason Start Date End Da te cyclobenzaprine (FLEXERIL) 10 mg tablet Take 10 mg by mouth 3 (three) times a day as needed Error 05/12/2018 08/03/2019 documented as of this encounter Historical Medications * This list may reflect changes made after this encounter. cefuroxime (CEFTIN) 500 mg tabletIndications :Upper Respiratory/HEENT Infection Take 500 mg by mouth 2 (two) times a day 08/31/2019 added in this encounter Active and Recently Administered Medications Times are shown in CDT. Scheduled Medication Order 08/08/2019 08/09/2019 08/10/2019 acetaminophen (TYLENOL) tablet 1,000 mg 1,000 mg, oral, Once, On Thu08/10/19 at 0930, For 1 dose, Phase I, When able to tolerate PO if the patient has not received acetaminophen in the last 4 hours., Indications: Pain 0930 (Due) heparin 5,000 unit/mL injection 5,000 Units (COMPLETED) 5,000 Units, subcutaneous, Once, On Thu08/10/19 at 0800, For 1 dose, Pre-Op, Indications: Deep Vein Thrombosis Prevention 0808 (Given - Provid er: Deja Bustamante RN) Continuous Medication Order 08/08/2019 08/09/2019 08/10/2019 Lactated Ringer's (LR) infusion 30 mL/hr, intravenous, Continuous, Starting on Thu08/10/19 at 0800, Pre-Op 0741 (New Bag - Prov ider: Deja Bustamante RN) PRN Medication Order 08/08/2019 08/09/2019 08/10/2019 diphenhydrAMINE (BENADRYL) injection 12.5 mg 12.5 mg, intravenous, Every 15 min PRN, itching, Starting on Thu08/10/19 at 0857, For 2 doses, Phase I, Max cumulative dose 50 mg., Indications: Itching fentaNYL (SUBLIMAZE) preservative free injection 50 mcg 50 mcg, intravenous, Once as needed, breakthrough pain, Starting on Thu08/10/19 at 0857, For 1 dose, Phase I, Administer for uncontrolled or increasing pain while in PACU only. Then proceed to PACU 1st line analgesic., Indications: Pain haloperidol (HALDOL) injection 1 mg 1 mg, intravenous, Administer over 5 Minutes, Once as needed, nausea, vomiting, Starting on Thu08/10/19 at 0857, For 1 dose, Phase I, If nausea/vomiting not relieved by ondansetron within 30 minutes or if ondansetron has been given within the last 6 hours. hydrALAZINE (APRESOLINE) injection 5 mg 5 mg, intravenous, Administer over 2 Minutes, Every 15 min PRN, high blood pressure, Starting on Thu08/10/19 at 0857, Phase I, Max cumulative dose 20 mg. Dose if systolic BP greater than 180 AND heart rate less than 70., Indications: hypertension HYDROmorphone (DILAUDID) injection 0.4 mg 0.4 mg, intravenous, Administer over 2 Minutes, Every 10 min PRN, 1st line for pain, Starting on Thu08/10/19 at 0857, Phase I, Notify Anesthesiologist if total PACU dose reaches 2 mg and pain score 5/10 or more., Indications: Pain labetaloL (NORMODYNE,TRANDATE) injection 5 mg 5 mg, intravenous, at 30 mL/hr, Administer over 2 Minutes, Every 10 min PRN, high blood pressure, Starting on Thu08/10/19 at 0857, Phase I, Max cumulative dose 20 mg. Dose if systolic blood pressure greater than 180 AND HR greater than 70. lidocaine PF (XYLOCAINE) 10 mg/mL (1 %) preservative free injection (CANCELED) As needed, Starting on Thu08/10/19 at 0900, Intra-Op 0900 (Given - Provid er: Jasper Canchola MD) naloxone (NARCAN) 0.4 mg/mL injection 0.04-0.4 mg 0.04-0.4 mg, intravenous, Once as needed, other, excessive sedation/respiratory depression, Starting on Thu08/10/19 at 0857, For 1 dose, Phase I, Dilute 0.4 mg with 9 mL NS (final concentration 0.04 mg/mL). For respiratory depression (respiratory rate less than 6), administer 0.4 mg IVP over 30 seconds. For excessive sedation administer 0.04 mg (1 mL) every 1 minute until desired level of alertness. For IV, administer over 30 seconds., Indications: Opioid Toxicity ondansetron (ZOFRAN) injection 4 mg 4 mg, intravenous, Administer over 2 Minutes, Once as needed, nausea, vomiting, Starting on Thu08/10/19 at 0857, For 1 dose, Phase I, Proceed to haloperidol if ondansetron has been given within the last 6 hours. oxyCODONE (ROXICODONE) tablet 5 mg 5 mg, oral, Once as needed, 1st line for pain, Starting on Thu08/10/19 at 0857, For 1 dose, Phase I, When able to tolerate PO. May repeat in 1 hour if pain is uncontrolled or increasing after 1st dose., Indications: Pain documented in this encounter Orders Medications Ordered That Vikram ht Not Have Been Administered Count Last Ordered Date First Ordered Date acetaminophen (TYLENOL) tablet 1,000 mg 1 0 08/10/2019 diphenhydrAMINE (BENADRYL) i njection 12.5 mg 1 08/10/2019 fentaNYL (SUBLIMAZE) preserv ative free injection 50 mcg 1 08/10/2019 haloperidol (HALDOL) injection 1 mg 1 08/09 hydrALAZINE (APRESOLINE) injection 5 mg 1 0 08/10/2019 HYDROmorphone (DILAUDID) injection 0.4 mg 1 08/10/2019 labetaloL (NORMODYNE,TRANDAT E) injection 5 mg 1 08/10/2019 naloxone (NARCAN) 0.4 mg/mL injection 0.04-0.4 mg 1 08/10/2019 ondansetron (ZOFRAN) injection 4 mg 1 08/09 oxyCODONE (ROXICODONE) tablet 5 mg 1 2019 sodium chloride 0.9% flush 0.5-20 mL 1 07/15 documented in this encounter Care Teams Form Maker Relationship Specialty Start Date End Date Clara Stanley PA [address] [place] [id number] PCP - General Nurse Practitioner 04/05/19 Jasper Canchola MD [address] [place] [id number] Surgeon Thoracic Surgery 05/11/19 Alexis Lopez MD [address] [address] Binding Folder Machine Pulmonary Disease 05/11/19 [place] [address] [place] [address] [place] [id number] Medical Oncologist/Tray Drier Hematology and Oncology 05/11/19 Jacob Flynn MD [address] [facility] [address] [place] [address] Radiation Oncologist Radiation Oncology 05/25/19 documented as of this encounter
--- OUTSIDE RECORDS SUMMARY | 2024-03-02 03:46 | XMS_ITS | Encounter Summary ---
Author Organization [facility] Address [address] [facility] [address] [place] [address] Care Team Providers Care Pulpwood Dealer Name Role Phone Clara Stanley Primary Care Provider + Jasper Canchola MD Unavailable [phone] Alexis Lopez MD Unavailable [phone] Kip Del Rio MD Unavailable [phone] Jacob Flynn MD Unavailable [phone] Reason for Referral * Diagnostic Imaging (Routine) - Closed Specialty Diagnoses / Procedures Referred By Erik t Referred To Contact Diagnoses Malignant neoplasm of lower lobe of right lung (HCC) Procedures XR Chest PA Lateral 2 Views Alexis Lopez MD [address] [address] Phone: tel: fax: [address] [phone] Referral ID Status Reason Start Date Expiration Date Visits Re quested Visits Authorized [id number] Closed 08/12/2019 02/20/2021 1 1 Encounter Details Date Type Department Care Team (Late st Contact Info) Description 08/12/2019 Orders Only [facility] Pulmonology [address] [facility] [address] [place] [address] Alexis Lopez MD [address] [facility] [address] [address] Malignant neoplasm of lower lobe of right lung (CMS/HCC) (Primary Dx) Social History Tobacco Use Types Packs/Day Years Used Date Smoking Tobacco: Never Smokeless Tobacco: Never Alcohol Use Standard Drinks/Week Comments Yes 2 (1 standard drink = 0.6 oz pur e alcohol) Sex and Gender Information Value Date Recorded Sex Assigned at Not on file 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 Lopez. Ordered, printed and given to patient spouse. documented in this encounter Plan of Treatment Not on file documented as of this encounter Results * XR Chest PA Lateral 2 Views (08/16/2019 10:50 AM CDT) Anatomical Region Laterality Modality Body, Chest N/A Radiographic Trang ging 08/16/2019 1:38 PM CDT Narrative 08/16/2019 1:55 PM CDT Patient Name: KWAKU BULLOCK ?Ordering Dr: Alexis Lopez MD ?? D.O.B: 1965 ? Exam Date: 06/02/20 ?? 1050 ?? Age: 54 ?Sex: Male ? MR#: [id number] ?? Loc: ? RADIOLOGY REPORT ?? Order #[id number] ?? Radiology ? Chest 2 Views ? Signed ? EXAM DESCRIPTION: ?? Chest 2 Views ? REASON FOR STUDY: ?? Malignant neoplasm of right lung, patient states right ?? lobectomy 05/26/19 follow up from surgery, no complaints at this time. ? TECHNIQUE: ?? Frontal and lateral radiographic views of the chest acquired. ? COMPARISON: ?? Prior study dated 07/05/2019. ? FINDINGS: ? Postoperative changes involving the right hemithorax with partial right ?? pneumonectomy again noted. ??There is stable volume loss involving the right ?? hemithorax with linear scarring and probable atelectasis right lung base. ? No pneumothorax or congestive failure. ??Left lung is well expanded and clear. ? IMPRESSION: ?? Stable postoperative changes to the right hemithorax with volume ?? loss and scarring or atelectasis right lung base. ? THIS IS AN ELECTRONICALLY VERIFIED FINAL REPORT ?? 08/16/2019 1:55 PM - Electronically signed by Roberto Staples M.D. ?? Roberto Staples M.D. ? RH: RH ?? D: ??08/16/2019 1:39 PM ?? T: ??08/16/2019 1:46 PM ? Report ID: [id number] ?? Reading Location: ??[place] [address] ? REPORT ELECTRONICALLY SIGNED IN OTHER VENDOR SYSTEM ?? Resulting Agency Comment O Procedure Note Roberto Staples MD - 08/16/2019 Patient Name: KWAKU BULLOCK Dr: Alexis Lopez MD D.O.B: 1965 Exam Date: 08/16/19 1050 Age: 54 Sex: Male MR#: [id number] Loc: RADIOLOGY REPORT Order #[id number] Radiology Chest 2 Views Signed EXAM DESCRIPTION: Chest 2 Views REASON FOR STUDY: Malignant neoplasm of right lung, patient statesright lobectomy 05/26/19 follow up from surgery, no complaints at this time. TECHNIQUE: Frontal and lateral radiographic views of the chestacquired. COMPARISON: Prior study dated 07/05/2019. FINDINGS: Postoperative changes involving the right hemithorax with partial right pneumonectomy again noted. There is stable volume loss involving theright hemithorax with linear scarring and probable atelectasis right lung base. No pneumothorax or congestive failure. Left lung is well expanded andclear. IMPRESSION: Stable postoperative changes to the right hemithorax withvolume loss and scarring or atelectasis right lung base. THIS IS AN ELECTRONICALLY VERIFIED FINAL REPORT 08/16/2019 1:55 PM - Electronically signed by Roberto Staples M.D. RH: Report ID: [id number] Reading Location: [id number] REPORT ELECTRONICALLY SIGNED IN OTHER VENDOR SYSTEM us Alexis Lopez MD IMG XR PROCEDURES Final R esult documented in this encounter Visit Diagnoses Diagnosis Malignant neoplasm of lower lobe of right lung (HCC)- Primary Malignant neoplasm of lower lobe of right lung (HCC) documented in this encounter Care Teams Pulpwood Dealer Relationship Specialty Start Date End Date Clara Stanley PA [address] [place] [address] PCP - General Nurse Practitioner 04/05/19 Jasper Canchola MD [address] [place] [address] Surgeon Thoracic Surgery 05/11/19 Alexis Lopez MD [address] [address] Executive Director Global Brand Marketing Pulmonary Disease 05/11/19 Kip Del Rio MD [address] [facility] [address] [place] [address] Medical Oncologist/Kindergarten Classroom Teacher Hematology and Oncology 05/11/19 Jacob Flynn MD [address] [facility] [address] [place] [address] Radiation Oncologist Radiation Oncology 05/25/19 documented as of this encounter
--- OUTSIDE RECORDS SUMMARY | 2024-03-02 03:46 | XMS_ITS | Encounter Summary ---
Author Organization [facility] Address [address] [place] [address] Care Team Providers Care Hot Dip Galvanizer Name Role Phone Clara Stanley Primary Care Provider + Jasper Canchola MD Unavailable Alexis Lopez MD Unavailable Kip Del Rio MD Unavailable Jacob Fylnn MD Unavailable Encounter Details Date Type Department Care Team (Late st Contact Info) Description 08/24/2019 7:42 AM CDT Hospital Encounter [facility] OP INTERIM Alexis Lopez MD [address] [facility] [address] [address] Social History Tobacco Use Types Packs/Day Years Used Date Smoking Tobacco: Never Smokeless Tobacco: Never Alcohol Use Standard Drinks/Week Comments Yes 2 (1 standard drink = 0.6 oz pur e alcohol) Sex and Gender Information Value Date Recorded Sex Assigned at Not on file 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 Historical Provider NURSING COMMUNICATION Fin al Result documented in this encounter Visit Diagnoses Not on filedocumented in this encounter Care Teams Hot Dip Galvanizer Relationship Specialty Start Date End Date Clara Stanley PA [address] [place] [address] PCP - General Nurse Practitioner 04/05/19 Jasper Canchola MD [address] [place] [address] Surgeon Thoracic Surgery 05/11/19 Alexis Lopez MD [address] [address] Director Of Sustainability Programs Pulmonary Disease 05/11/19 Kip Del Rio MD [address] [facility] [address] [place] [address] Medical Oncologist/Radio Announcer Hematology and Oncology 05/11/19 Jacob Flynn MD [address] [facility] [address] [place] [address] Radiation Oncologist Radiation Oncology 05/25/19 documented as of this encounter
--- OUTSIDE RECORDS SUMMARY | 2024-03-02 03:46 | XMS_ITS | Encounter Summary ---
Author Organization [facility] Address [address] [place] [address] Phone Care Team Providers Care Inspector Rag Sorting Name Role Phone Clara Stanley Primary Care Provider + Jasper Canchola MD Unavailable Alexis Lopez MD Unavailable [phone] Kip Del Rio MD Unavailable Jacob Flynn MD Unavailable Reason for Referral * Diagnostic Imaging (Routine) - Closed Specialty Diagnoses / Procedures Referred By Contac t Referred To Contact Radiology Diagnoses History of lung cancer Procedures CT Chest W Contrast Stephanie Bautista NP Phone: tel: fax: [address] [address] Referral ID Status Reason Start Date Expiration Date Visits Re quested Visits Authorized [id number] Closed 08/20/2020 11/18/2020 1 1 [employer]ARM Reason for Visit * Consultation (Routine) - Closed Specialty Diagnoses / Procedures Referred By Contac t Referred To Contact Cardiothoracic Surgery Diagnoses Lung nodule Clara Stanley PA [facility] [place] [address] Phone: tel: fax: Jasper Canchola MD [address] [facility] [address] [place] [address] Phone: tel: fax: Referral ID Status Reason Start Date Expiration Date V isits Requested Visits Authorized [id number] Closed Specialty Services Required 03/12/2020 04/11/2021 99 99 Encounter Details Date Type Department Care Team (Late st Contact Info) Description 03/28/2020 3:45 PM 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 Office Visit [facility] Surgery [address] [facility] Medicine 8th [place] [address] [place] [phone] Jasper Canchola MD [address] [facility] [place] [address] [place] [address] History of lung cancer (Primary Dx); Lung nodule Social History Tobacco Use Types Packs/Day Years Used Date Smoking Tobacco: Never Smokeless Tobacco: Never Alcohol Use Standard Drinks/Week Comments Yes 2 (1 standard drink = 0.6 oz pur e alcohol) Sex and Gender Information Value Date Recorded Sex Assigned at Not on file 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 Gender Identity Not on file Sexual Orientation Straight 09/22/2019 8: 21 PM CDT documented as of this encounter Last Filed Vital Signs Vital Sign Reading Time Taken Comments Blood Pressure 136/86 03/28/2020 3:20 PM 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 Pulse 77 03/28/2020 3:20 PM 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 Temperature 36.6 ??C (97.8 ??F) 03/28/2020 3:20 PM CS T Respiratory Rate 20 03/28/2020 3:20 PM 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 Oxygen Saturation 98% 03/28/2020 3:20 PM 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 Inhaled Oxygen Concentration - - Weight 154 kg (339 lb 6.4 oz) 03/28/2020 3:20 PM 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 Height 190.5 cm (6' 3 ) 03/28/2020 3:20 PM 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 Body Mass Index 42.42 03/28/2020 3:20 PM 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 documented in this encounter Progress Notes * Jasper Canchola MD - 03/28/2020 3:45 PM CST [facility] Thoracic Surgery Note 03/29/2020 KALPANA Lema Kwaku Kulkarni 1965 Dear KALPANA Lema: I was pleased to see Kwaku Kulkarni in follow-up March 28, 2019. 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 The patient has some residual postthoracotomy pain but otherwise is doing well. The patient underwent a surveillance CT scan on March 28. This demonstrated no evidence of recurrence in the pulmonary parenchyma or mediastinum. We have reassured the patient and asked him to return for routine CT scan in 6 months. Thank you very much. Yours sincerely, Sary Canchola MD Assembly Line Brazer completed by using Impliant Direct speaking software, therefore, transcriptionvariances may occur. [employer] documented in this encounter Plan of Treatment Not on file documented as of this encounter Results * CT Chest W Contrast (09/19/2020 2:04 PM CDT) Anatomical Region Laterality Modality Body N/A Computed Tomogra phy 09/19/2020 2:19 PM CDT Impressions 09/19/2020 2:19 PM CDT 1. ??Enlarging high right paratracheal lymph node suspicious for metastatic disease. 2. ??Tiny unchanged pulmonary nodules. Electronically signed by: Momo Garcia M.D. Narrative 09/19/2020 2:19 PM CDT EXAMINATION: ??Computed tomography of the chest with intravenous contrast HISTORY: Non-small cell lung cancer status post right lower lobectomy TECHNIQUE: ??Transaxial computed tomographic images of the chest were obtained with intravenous contrast according to the standard protocol after the uneventful administration of 100 mL Opti-Ray 350 intravenous contrast. COMPARISON: 03/28/2020, 09/23/2019, PET CT 05/03/2019 FINDINGS: ?? A 3 mm right middle lobe nodule on series 3, image 75 is unchanged. A subpleural 5 mm right middle lobe nodule and series 3, image 80 is unchanged. Post surgical changes of right lower lobectomy are again noted with unchanged mild right inferior hemithorax pleural thickening and a trace volume of fluid. A 2 mm left lower lobe nodule on series 3, image 85 is unchanged. The left lung is otherwise clear. No pneumothorax or pulmonary edema are present. No supraclavicular or axillary lymphadenopathy are present. A high right paratracheal lymph node measures 1 cm in short axis on series 2, image 26, and has increased from 7 mm on 03/28/2020 and 4 mm on 09/23/2019, suspicious for metastatic disease. Small right paratracheal and hilar lymph nodes are unchanged. The heart size is normal without pericardial effusion. There is no central pulmonary embolism. Mild bilateral gynecomastia is unchanged. The visualized portions of the liver, gallbladder, spleen, pancreas, adrenal glands, and kidneys are normal. There are no suspicious bone lesions. A right thoracotomy defect is again noted. Procedure Note Momo Garcia MD - 09/19/2020 EXAMINATION: Computed tomography of the chest with intravenous contrast HISTORY: Non-small cell lung cancer status post right lower lobectomy TECHNIQUE: Transaxial computed tomographic images of the chest were obtained with intravenous contrast according to the standard protocol after the uneventful administration of 100 mL Opti-Ray 350 intravenous contrast. COMPARISON: 03/28/2020, 09/23/2019, PET CT 05/03/2019 FINDINGS: A 3 mm right middle lobe nodule on series 3, image 75 is unchanged. A subpleural 5 mm right middle lobe nodule and series 3, image 80 is unchanged. Post surgical changes of right lower lobectomy are again noted with unchanged mild right inferior hemithorax pleural thickening and a trace volume of fluid. A 2 mm left lower lobe nodule on series 3, image 85 is unchanged. The left lung is otherwise clear. No pneumothorax or pulmonary edema are present. No supraclavicular or axillary lymphadenopathy are present. A high right paratracheal lymph node measures 1 cm in short axis on series 2, image 26, and has increased from 7 mm on 03/28/2020 and 4 mm on 09/23/2019, suspicious for metastatic disease. Small right paratracheal and hilar lymph nodes are unchanged. The heart size is normal without pericardial effusion. There is no central pulmonary embolism. Mild bilateral gynecomastia is unchanged. The visualized portions of the liver, gallbladder, spleen, pancreas, adrenal glands, and kidneys are normal. There are no suspicious bone lesions. A right thoracotomy defect is again noted. IMPRESSION: 1. Enlarging high right paratracheal lymph node suspicious for metastatic disease. 2. Tiny unchanged pulmonary nodules. Electronically signed by: Momo Garcia M.D. Stephanie Bautista NP IMG CT PROCEDURES Final Result documented in this encounter Visit Diagnoses Diagnosis History of lung cancer- Primary Personal history of malignant neoplasm of bronchus and lung Lung nodule Other diseases of lung, not elsewhere classified History of lung cancer Personal history of malignant neoplasm of bronchus and lung documented in this encounter Historical Medications * This list may reflect changes made after this encounter. cholecalciferol (VITAMIN D-3) 50,000 unit capsule Take 1 capsule (50,000 Units total) by mouth ascorbic acid (VITAMIN C) 1,000 mg tablet Take 1 tablet (1,000 mg total) by mouth daily traZODone (DESYREL) 50 mg tablet Take 50 mg by mouth daily Just got prescribed this morning. Has not taken any yet. 03/28/2020 1 albuterol HFA (PROVENTIL HFA,VENTOLIN HFA,PROAIR HFA) 90 mcg/actuation inhaler INL 2 PFS PO Q 4 H PRN 07/27/2019 1 added in this encounter Orders Outpatient Referral Count Last Ordered Date [facility] Ordered Date AMB REFERRAL TO CARDIOTHORACIC SURGERY 1 documented in this encounter Care Teams Inspector Rag Sorting Relationship Specialty Start Date End Date Clara Stanley PA [address] [place] [address] PCP - General Nurse Practitioner 04/05/19 Jasper Canchola MD [address] [place] [address] Surgeon Thoracic Surgery 05/11/19 Alexis Lopez MD [address] [facility] [address] [place] [address] [place] [address] Group Insurance Specialist Pulmonary Disease 05/11/19 Kip Del Rio MD [address] [facility] [address] [place] [address] Medical Oncologist/Gravel Weigher Hematology and Oncology 05/11/19 Jacob Flynn MD [address] [facility] [address] [place] [address] Radiation Oncologist Radiation Oncology 05/25/19 documented as of this encounter
--- OUTSIDE RECORDS SUMMARY | 2024-03-02 03:46 | XMS_ITS | Encounter Summary ---
Author Organization [facility] Address [address] [place] [address] Care Team Providers Care Mortgage Loan Processing Clerk Name Role Phone Clara Stanley Primary Care Provider + Jasper Canchola MD Unavailable Alexis Lopez MD Unavailable [phone] Kip Del Rio MD Unavailable Jacob Flynn MD Unavailable Reason for Visit * Reason Comments Follow-up Encounter Details Date Type Department Care Team (Late st Contact Info) Description 04/06/2020 9:30 AM FORMING MACHINE UPKEEP MECHANIC HELPER Office Visit [facility] Pulmonology [address] [place] [id number] Shyla Shafer COMPUTER FORWARDING SYSTEM MARKUP CLERK [address] [place] [address] Malignant neoplasm of lower lobe of right lung (CMS/HCC) (Primary Dx); Mild intermittent asthma without complication; LEONOR (obstructive sleep apnea) Social History Tobacco Use Types Packs/Day Years Used Date Smoking Tobacco: Never Smokeless Tobacco: Never Alcohol Use Standard Drinks/Week Comments Yes 2 (1 standard drink = 0.6 oz pur e alcohol) Sex and Gender Information Value Date Recorded Sex Assigned at Not on file Legal Sex Male 1:17 AM FORMING MACHINE UPKEEP MECHANIC HELPER Gender Identity Not on file Sexual Orientation Straight 09/22/2019 8: 21 PM CDT documented as of this encounter Last Filed Vital Signs Vital Sign Reading Time Taken Comments Blood Pressure 133/86 04/06/2020 9:23 AM FORMING MACHINE UPKEEP MECHANIC HELPER Pulse 80 04/06/2020 9:23 AM FORMING MACHINE UPKEEP MECHANIC HELPER Temperature 37.1 ??C (98.8 ??F) 04/06/2020 9:23 AM CS T Respiratory Rate - - Oxygen Saturation 99% 04/06/2020 9:23 AM FORMING MACHINE UPKEEP MECHANIC HELPER Inhaled Oxygen Concentration - - Weight 155.6 kg (343 lb) 04/06/2020 9:23 AM FORMING MACHINE UPKEEP MECHANIC HELPER Height - - Body Mass Index 42.87 03/28/2020 3:20 PM FORMING MACHINE UPKEEP MECHANIC HELPER documented in this encounter Progress Notes * Shyla Shafer, COMPUTER FORWARDING SYSTEM MARKUP CLERK - 04/06/2020 9:30 AM CST Images from the original note were not included. Progress Note Patient: Kwaku Kulkarni ( - 1965) is a 54 y.o. male. Visit Date: 04/06/2020 Chief Complaint Patient presents with ??? Follow-up History of Present Illness: This is a 54-year-old gentleman who comes into the office today for follow-up of asthma, LEONOR, malignant neoplasm of the right lower lobe. The patient did complete a chest CT on March 28, 2020, please see results below. These results were shared with the patient. The patient's neoplasm of the right lower lobe is being monitored by Dr. Canchola. The patient is getting bi- yearly CT scans to monitor any changes. The next CT scan is ordered for September of 2020. The patient's asthma is being well controlled with Symbicort 2 puffs b.i.d.. The patient states that he does take his Symbicort only about 3 times per week he does not taking on a daily basis. Patient denies using his albuterol inhaler. Patient states he still continues with Flonase. He denies wheezing, cough, or shortness of breath. The patient has obstructive sleep apnea is currently being treated with CPAP therapy at 5-20 cm waterpressure. Patient states that he does dream at night. He denies snoring under the mask. The patientdenies daytime sleepiness or falling asleep at inappropriate situations. Patient denies dry mouth and states his energy level is 7/10. The overall compliance report from 03-04-2020-04-02-2020 shows anaverage use of 1 hour and 57 minutes on 43% of the nights, his AHI 0.7. The median pressure is 9.7 and the maximum pressure is 12.5 cm water pressure. These results were explained to the patient. Thepatient is benefitting from CPAP therapy. Past Medical History: Past Medical History: Diagnosis [...] Outpatient Medications Medication Sig Dispense Refill ??? albuterol HFA (PROVENTIL HFA,VENTOLIN HFA,PROAIR HFA) 90 mcg/actuation inhaler INL 2 PFS PO Q 4H PRN ??? amLODIPine (NORVASC) 10 mg tablet Take [...] propionate (FLONASE) 50 mcg/actuation nasal spray ??? gabapentin (NEURONTIN) 300 mg capsule Take [...] 20 mg by mouth every morning ??? traZODone (DESYREL) 50 mg tablet Take [...] education level: None Occupational History ??? None Social Needs ??? Financial resource strain: None ??? Food insecurity Worry: None Inability: None ??? Transportation needs Medical: None Non-medical: None Tobacco Use ??? Smoking status: Never Smoker ??? Smokeless tobacco: Never Used Substance and Sexual Activity ??? Alcohol use: Yes Alcohol/week: 2.0 - 3.0 standard drinks Types: 2 - 3 Standard drinks or equivalent per week ??? Drug use: Never ??? Sexual activity: None Lifestyle ??? Physical activity Days per week: None Minutes per session: None ??? Stress: None Relationships ??? Social connections Talks on phone: None Gets together: None Attends samaritan service: None Active member of club or organization: None Attends meetings of clubs or organizations: None Relationship status: None ??? Intimate partner violence Fear of current or ex partner: None Emotionally abused: None Physically abused: None Forced sexual activity: None Other Topics Concern ??? None Social History Narrative ??? None Review of Systems: Review of Systems Constitutional: Negative for appetite change, fever and unexpected weight change. HENT: Negative for rhinorrhea, sinus pressure, sinus pain, sore throat and tinnitus. Respiratory: Negative for cough, shortness of breath and wheezing. Cardiovascular: Negative for chest pain, palpitations and leg swelling. Gastrointestinal: Negative for abdominal pain, diarrhea, nausea and vomiting. Genitourinary: Negative for hematuria. Musculoskeletal: Negative for arthralgias, back pain and myalgias. Skin: Negative for color change. Allergic/Immunologic: Negative for environmental allergies and food allergies. Neurological: Negative for dizziness, light-headedness and headaches. Physical Exam: Vitals: 04/06/20 0923 BP: 133/86 Pulse: 80 Temp: 37.1 ??C (98.8 ??F) SpO2: 99% Weight: (!) 155.6 kg (343 lb) Physical Exam HENT: Head: Normocephalic and atraumatic. Eyes: Pupils: Pupils are equal, round, and reactive to light. Neck: Musculoskeletal: Normal range of motion and neck supple. Cardiovascular: Rate and Rhythm: Normal rate and regular rhythm. Pulmonary: Effort: Pulmonary effort is normal. Breath sounds: Normal breath sounds. Abdominal: General: Bowel sounds are normal. Palpations: Abdomen is soft. Musculoskeletal: Normal range of motion. Skin: General: Skin is warm and dry. Neurological: Mental Status: He is alert and oriented to person, place, and time. Data Reviewed Images: Ct Chest W Contrast Result Date: 03/28/2020 Postoperative changes of a right lower lobectomy with a small amount of pleural fluid and pleural thickening. 2 tiny right lung and one a tiny left lung pulmonary nodule, all of which are stable. Electronically signed by: Claudia Darling M.D. Assessment and Plan: Diagnoses and all orders for this visit: Malignant neoplasm of lower lobe of right lung (CMS/HCC) (Primary) Assessment & Plan: The patient will continue to see Dr. Canchola received bi- yearly CT scans. The CT scan for September of 2020 has been ordered. Mild intermittent asthma without complication Assessment & Plan: The patient will continue with Symbicort 2 [...] The patient also will continue with Flonase. LEONOR (obstructive sleep apnea) Assessment & Plan: The patient was encouraged to resume auto [...] The patient denied need for supplies. The [employer] company is [employer]. The patient is benefitting from CPAP therapy. Rendering Provider & Department: Shyla Shafer NP Cosigned by Alexis Lopez MD at 04/06/2020 11:42 AM FORMING MACHINE UPKEEP MECHANIC HELPER ING MACHINE UPKEEP MECHANIC HELPER ING MACHINE UPKEEP MECHANIC HELPER documented in this encounter Miscellaneous Notes * Assessment & Plan Note - Shyla Shafer NP - 04/06/2020 9:51 AM FORMING MACHINE UPKEEP MECHANIC HELPER Associated Problem(s): Mild intermittent asthma without complication The patient will continue with Symbicort 2 [...] The patient also will continue with Flonase. ING MACHINE UPKEEP MECHANIC HELPER * Assessment & Plan Note - Shyla Shafer NP - 04/06/2020 9:50 AM FORMING MACHINE UPKEEP MECHANIC HELPER Associated Problem(s): LEONOR (obstructive sleep apnea) The patient was encouraged to resume auto [...] The patient denied need for supplies. The [employer] company is [employer]. The patient is benefitting from CPAP therapy. ING MACHINE UPKEEP MECHANIC HELPER * Assessment & Plan Note - Shyla Shafer NP - 04/06/2020 9:49 AM FORMING MACHINE UPKEEP MECHANIC HELPER Associated Problem(s): Malignant neoplasm of lower lobe of right lung (HCC) (Deleted) The patient will continue to see Dr. Canchola received bi- yearly CT scans. The CT scan for September of 2020 has been ordered. ING MACHINE UPKEEP MECHANIC HELPER documented in this encounter Plan of Treatment Not on file documented as of this encounter Visit Diagnoses Diagnosis Malignant neoplasm of lower lobe of right lung (HCC)- Primary Mild intermittent asthma without complication LEONOR (obstructive sleep apnea) Obstructive sleep apnea (adult) (pediatric) documented in this encounter Discontinued Medications Medication Sig Discontinue Reason Start Date End Da te acetaZOLAMIDE ER (DIAMOX SEQUAL) 500 mg capsuleIndications:idiopa thic intracranial hypertension Take 500 mg by mouth 2 (two) times a day Therapy completed 04/06/2020 oxyCODONE (ROXICODONE) 10 mg tabletIndications:Pain Take 1-1.5 tablets (10-15 mg total) by mouth every 3 (three) hours as needed for pain Therapy completed 05/30/2019 04/06/2020 documented as of this encounter Care Teams Mortgage Loan Processing Clerk Relationship Specialty Start Date End Date Clara Stanley PA [address] [place] [id number] PCP - General Nurse Practitioner 04/05/19 Jasper Canchola MD [address] [place] [address] Surgeon Thoracic Surgery 05/11/19 Alexis Lopez MD [address] [place] [address] Study Lead Pulmonary Disease 05/11/19 Kip Del Rio MD [address] [place] [address] Medical Oncologist/Meter Installer And Remover Hematology and Oncology 05/11/19 Jacob Flynn MD [address] [place] [address] Radiation Oncologist Radiation Oncology 05/25/19 documented as of this encounter
--- OUTSIDE RECORDS SUMMARY | 2024-03-02 03:46 | XMS_ITS | Encounter Summary ---
Author Organization [facility] Address [address] [place] [address] Care Team Providers Care Bag Presser Name Role Phone Clara Stanley Primary Care Provider + Jasper Canchola MD Unavailable Alexis Lopez MD Unavailable [phone] Kip Del Rio MD Unavailable Jacob Flynn MD Unavailable Reason for Referral * Diagnostic Imaging (Routine) - Closed Specialty Diagnoses / Procedures Referred By Erik t Referred To Contact Diagnoses Malignant neoplasm of lower lobe of right lung (HCC) Procedures XR Chest PA Lateral 2 Views Alexis Lopez MD [address] [place] [address] [place] [address] Phone: tel: fax: [address] [phone] Referral ID Status Reason Start Date Expiration Date Visits Re quested Visits Authorized [id number] Closed 08/12/2019 02/20/2021 1 1 Encounter Details Date Type Department Care Team (Late st Contact Info) Description 08/16/2019 10:48 AM CDT Hospital Encounter [facility]IM Alexis Lopez MD [address] [place] [address] [place] [address] Malignant neoplasm of lower lobe of right lung (CMS/HCC) Social History Tobacco Use Types Packs/Day Years Used Date Smoking Tobacco: Never Smokeless Tobacco: Never Alcohol Use Standard Drinks/Week Comments Yes 2 (1 standard drink = 0.6 oz pur e alcohol) Sex and Gender Information Value Date Recorded Sex Assigned at Not on file Legal Sex Male 1:17 AM SENIOR SYSTEMS ENGINEER Gender Identity Not on file Sexual [...] Priority Date/Time Associated Diagnosis Comments XR CHEST PA LATERAL 2 VIEWS Schedule Routine, Read Routine (OP Routine) 08/16/2019 10:50 AM CDT Malignant neoplasm of lower lobe of right lung (CMS/HCC) documented in this encounter Results * XR Chest PA Lateral 2 Views (08/16/2019 10:50 AM CDT) Anatomical Region Laterality Modality Body, Chest N/A Radiographic Trang ging 08/16/2019 1:38 PM CDT Narrative 08/16/2019 1:55 PM CDT Patient Name: KWAKU BULLOCK ?Ordering Dr: Alexis Lopez MD ?? D.O.B: 1965 ? Exam Date: 08/16/19 ?? 1050 ?? Age: 54 ?Sex: Male ? MR#: [id number] ?? Loc: ? RADIOLOGY REPORT ?? Order #[id number] ?? Radiology ? Chest 2 Views ? [...] T: ??08/16/2019 1:46 PM ? Report ID: [id number] ?? Reading Location: ??[id number] ? REPORT ELECTRONICALLY SIGNED IN OTHER VENDOR SYSTEM ?? Resulting Agency Comment O Procedure Note Roberto Staples MD - 08/16/2019 Patient Name: KWAKU BULLOCK Pedro Dr: Alexis Lopez MD, D.O.B: 1965 Exam Date: 08/16/19 1050 Age: 54 Sex: Male MR#: [id number] Loc: RADIOLOGY REPORT Order #[id number] Radiology Chest 2 Views Signed EXAM DESCRIPTION: [...] Electronically signed by Roberto Staples M.D. RH: RH Report ID: [id number] Reading Location: [id number] REPORT ELECTRONICALLY SIGNED IN OTHER VENDOR SYSTEM Alexis Lopez MD IMG XR PROCEDURES Final R esult documented in this encounter Visit Diagnoses Diagnosis Malignant neoplasm of lower lobe of right lung (HCC) documented in this encounter Care Teams Bag Presser Relationship Specialty Start Date End Date Clara Stanley PA [address] [place] [address] PCP - General Nurse Practitioner 04/05/19 Jasper Canchola MD [address] [place] [address] Surgeon Thoracic Surgery 05/11/19 Alexis Lopez MD [address] [address] Dictionary Editor Pulmonary Disease 05/11/19 Kip Del Rio MD [address] [place] [address] Medical Oncologist/Director Of Student Life Hematology and Oncology 05/11/19 Jacob Flynn MD [address] [place] [address] Radiation Oncologist Radiation Oncology 05/25/19 documented as of this encounter
--- OUTSIDE RECORDS SUMMARY | 2024-03-02 03:46 | XMS_ITS | Encounter Summary ---
Author Organization [facility] Address [address] [place] [address] Care Team Providers Care Medical Leader Name Role Phone Clara Stanley Primary Care Provider + Jasper Canchola MD Unavailable Alexis Lopez MD Unavailable Kip Del Rio MD Unavailable Jacob Flynn MD Unavailable [phone] Encounter Details Date Type Department Care Team (Late st Contact Info) Description 08/22/2019 4:45 PM CDT Lab [address] [address] Right lower lobe pulmonary nodule Social History Tobacco Use Types Packs/Day Years Used Date Smoking Tobacco: Never Smokeless Tobacco: Never Alcohol Use Standard Drinks/Week Comments Yes 2 (1 standard drink = 0.6 oz pur e alcohol) Sex and Gender Information Value Date Recorded Sex Assigned at Not on file Legal Sex Male 1:17 AM CAKE FROSTER Gender Identity Not on file Sexual Orientation Straight 09/22/2019 8: 21 PM CDT documented as of this encounter Plan of Treatment Not on file documented as of this encounter Visit Diagnoses Diagnosis Right lower lobe pulmonary nodule documented in this encounter Orders Lab Orders Without Results Count Last Ordered D ate First Ordered Date COVID-19 CORONAVIRUS RNA 1 08/22/2019 documented in this encounter Care Teams Medical Leader Relationship Specialty Start Date End Date Clara Stanley PA [address] [place] [address] PCP - General Nurse Practitioner 04/05/19 Jasper Canchola MD [address] [place] [address] Surgeon Thoracic Surgery 05/11/19 Alexis Lopez MD [address] [address] [employer] Automatic Pulmonary Disease 05/11/19 Kip Del Rio MD [address] [facility] [address] [place] [address] Medical Oncologist/Student Services Vice President Hematology and Oncology 05/11/19 Jacob Flynn MD [address] [facility] [address] [place] [address] Radiation Oncologist Radiation Oncology 05/25/19 documented as of this encounter
--- OUTSIDE RECORDS SUMMARY | 2024-03-02 03:46 | XMS_ITS | Encounter Summary ---
Author Organization [facility] Address [address] [place] [address] Care Team Providers Care Hotel Receptionist Name Role Phone Clara Stanley Primary Care Provider + Jasper Canchola MD Unavailable Alexis Lopez MD Unavailable [phone] Kip Del Rio MD Unavailable Jacob Flynn MD Unavailable Reason for Referral * Diagnostic Imaging (Routine) - Closed Specialty Diagnoses / Procedures Referred By Erik galdamez Referred To Contact Radiology Diagnoses Lung nodule Procedures CT Chest W Contrast Stephanie Bautista NP Phone: tel: fax: [address] [phone] Referral ID Status Reason Start Date Expiration Date Visits Re quested Visits Authorized [id number] Closed 03/02/2020 08/31/2020 1 1 SECURITY SPECIALIST Reason for Visit * Diagnostic Imaging (Routine) - Closed Specialty Diagnoses / Procedures Referred By Erik galdamez Referred To Contact Radiology Diagnoses Lung nodule Procedures CT Chest W Contrast Stephanie Bautista NP Phone: tel: fax: [address] [address] Referral ID Status Reason Start Date Expiration Date Visits Re quested Visits Authorized [id number] Closed 03/02/2020 08/31/2020 1 1 Encounter Details Date Type Department Care Team (Latest Contact Info) Description 03/28/2020 2:58 PM ICT SECURITY SPECIALIST - 03/28/2020 11:59 PM ICT SECURITY SPECIALIST Hospital Encounter [facility] [place] [address] Jasper Canchola MD [address] [facility] [address] [place] [address] Stephanie Bautista NP [address] [facility] [address] [place] [address] Lung nodule Discharge Disposition: Discharge to home or self care Social History Tobacco Use Types Packs/Day Years Used Date Smoking Tobacco: Never Smokeless Tobacco: Never Alcohol Use Standard Drinks/Week Comments Yes 2 (1 standard drink = 0.6 oz pur e alcohol) Sex and Gender Information Value Date Recorded Sex Assigned at Not on file Legal Sex Male 1:17 AM ICT SECURITY SPECIALIST Gender Identity Not on file Sexual [...] 1 capsule (50,000 Units total) by mouth acetaZOLAMIDE ER (DIAMOX SEQUAL) 500 mg capsuleIndications :idiopathic intracranial hypertension Take 500 mg by mouth 2 (two) times a day 1 albuterol HFA (PROVENTIL HFA,VENTOLIN HFA,PROAIR HFA) 90 mcg/actuation inhaler INL 2 PFS PO Q 4 H PRN 07/27/2019 1 budesonide-formote roL (SYMBICORT) 160-4.5 mcg/actuation inhaler Inhale 2 puffs 2 (two) times a day Rinse mouth with water after use. Do not swallow. 1 Inhaler 5 08/25/2019 2 cetirizine (ZyrTEC) 10 mg tabletIndications: Seasonal Allergic Rhinitis Take 10 mg by mouth every morning 2 fluticasone propionate (FLONASE) 50 mcg/actuation nasal spray 06/12/2019 2 gabapentin (NEURONTIN) 300 mg capsule Take 1 capsule (300 mg total) by mouth nightly for 14 days 14 capsule 05/30/2019 1 LORazepam (ATIVAN) 0.5 mg tabletIndications: anxiety Take 0.5 mg by mouth every 6 (six) hours as needed for anxiety 2 oxyCODONE (ROXICODONE) 10 mg tabletIndications: Pain Take 1-1.5 tablets (10-15 mg total) by mouth every 3 (three) hours as needed for pain 42 tablet 05/30/2019 1 pravastatin (PRAVACHOL) 20 mg tabletIndications: hyperlipidemia Take [...] Associated Diagnosis Comments CT CHEST W CONTRAST Routine 03/28/2020 3 :11 PM ICT SECURITY SPECIALIST Lung nodule POCT CREATININE - DEVICE Routine 03/28/2020 2:58 PM ICT SECURITY SPECIALIST documented in this encounter Results * CT Chest W Contrast (03/28/2020 3:11 PM ICT SECURITY SPECIALIST) Anatomical Region Laterality Modality Body N/A Computed Tomogra phy 03/28/2020 3:23 PM ICT SECURITY SPECIALIST Impressions 03/28/2020 3:23 PM ICT SECURITY SPECIALIST Postoperative changes of a right lower lobectomy with a small amount of pleural fluid and pleural thickening. 2 tiny right lung and one a tiny left lung pulmonary nodule, all of which are stable. Electronically signed by: Claudia Darling M.D. Narrative 03/28/2020 3:23 [address] I[address] SPECIAL[address] CT chest with intravenous contrast CLINICAL HISTORY: Please evaluate for stability of lung nodule TECHNIQUE: CT of the chest was performed following the uneventful intravenous administration of 100 mL of Optiray 350 COMPARISON: CT dated 09/23/2019 FINDINGS: No mediastinal, hilar axillary or supraclavicular lymphadenopathy is noted. A separative changes of a right lower lobectomy are noted. There is a small pleural effusion. Images of the upper abdomen are unremarkable. The triangular shaped 4 mm peripheral pulmonary density is demonstrated on series 4, image 83, slice location 215. This is less conspicuous than the prior study. A 4 mm nodule along the right minor fissure demonstrated on series 4 image 80 slice location 209 is also unchanged. A left lower lobe pulmonary nodule measuring 2 mm best seen on series 4 image 89, slice location 227 is unchanged. 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 Procedure Note Claudia Darling MD - 03/28/2020 CT chest with intravenous contrast CLINICAL HISTORY: Please evaluate for stability of lung nodule TECHNIQUE: CT of the chest was performed following the uneventful intravenous administration of 100 mL of Optiray 350 COMPARISON: CT dated 09/23/2019 FINDINGS: No mediastinal, hilar axillary or supraclavicular lymphadenopathy is noted. A separative changes of a right lower lobectomy are noted. There is a small pleural effusion. Images of the upper abdomen are unremarkable. The triangular shaped 4 mm peripheral pulmonary density is demonstrated on series 4, image 83, slice location 215. This is less conspicuous than the prior study. A 4 mm nodule along the right minor fissure demonstrated on series 4 image 80 slice location 209 is also unchanged. A left lower lobe pulmonary nodule measuring 2 mm best seen on series 4 image 89, slice location 227 is unchanged. 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 IMPRESSION: Postoperative changes of a right lower lobectomy with a small amount of pleural fluid and pleural thickening. 2 tiny right lung and one a tiny left lung pulmonary nodule, all of which are stable. Electronically signed by: Claudia Darling M.D. Stephanie Bautista LATHE SPOTTER IMG CT PROCEDURES Final Result * POCT creatinine (03/28/2020 2:58 PM ICT SECURITY SPECIALIST) Creatinine POC 0.9 0.7 - 1.3 mg/dL [facility] Blood specimen (specimen) 03/28/2020 2:58 PM ICT SECURITY SPECIALIST 03/28/2020 2:58 PM ICT SECURITY SPECIALIST Stephanie Bautista NP LAB POCT ORDERABLES - DEVICE Fi nal Result [facility] Department [place] [address] documented in this encounter Visit Diagnoses Diagnosis Lung nodule Other diseases of lung, not elsewhere classified documented in this encounter Administered Medications Inactive Administered Medications - up to 3 most recent administrations Medication Order MAR Action Action Date Dose Rate Site ioversoL (OPTIRAY 350) syringe syringe 100 mL 100 mL, intravenous, Once in imaging, contrast, Starting on Thu03/28/20 at 1501, For 1 dose Given 03/28/2020 3:12 PM ICT SECURITY SPECIALIST 100 mL documented in this encounter Orders Medications Ordered That Vikram ht Not Have Been Administered Count Last Ordered Date First Ordered Date ioversoL (OPTIRAY 350) syrin ge syringe 100 mL 1 03/28/2020 documented in this encounter Care Teams Hotel Receptionist Relationship Specialty Start Date End Date Clara Stanley PA [address] [place] [address] PCP - General Nurse Practitioner 04/05/19 Jasper Canchola MD [address] [place] [address] Surgeon Thoracic Surgery 05/11/19 Alexis Lopez MD [address] [place] [address] [address] Form Presser Pulmonary Disease 05/11/19 Kip Del Rio MD [address] [facility] [address] [place] [address] Medical Oncologist/Route Deliverer Hematology and Oncology 05/11/19 Jacob Flynn MD [address] [facility] [address] LL [address] [place] [address] Radiation Oncologist Radiation Oncology 05/25/19 documented as of this encounter
--- OUTSIDE RECORDS SUMMARY | 2024-03-02 03:46 | XMS_ITS | Encounter Summary ---
Author Organization [facility] Address [address] [place] [address] Phone Care Team Providers Care Bed Setter Name Role Phone Clara Stanley Primary Care Provider + Jasper Canchola MD Unavailable Alexis Lopez MD Unavailable Kip Del Rio MD Unavailable Jacob Flynn MD Unavailable Encounter Details Date Type Department Care Team (Late st Contact Info) Description 03/12/2020 Orders Only [facility] Surgery [address] [facility] Advanced Medicine 8th [place] [address] [place] [id number] Stephanie Bautista, TJ [address] [facility] [address] [place] [address] Social History Tobacco Use Types Packs/Day Years Used Date Smoking Tobacco: Never Smokeless Tobacco: Never Alcohol Use Standard Drinks/Week Comments Yes 2 (1 standard drink = 0.6 oz pur e alcohol) Sex and Gender Information Value Date Recorded Sex Assigned at Not on file 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 Gender Identity Not on file Sexual Orientation Straight 09/22/2019 8: 21 PM CDT documented as of this encounter Plan of Treatment Not on file documented as of this encounter Visit Diagnoses Not on filedocumented in this encounter Care Teams Bed Setter Relationship Specialty Start Date End Date Clara Stanley PA [address] [place] [address] PCP - General Nurse Practitioner 04/05/19 Jasper Canchola MD [address] [place] [address] Surgeon Thoracic Surgery 05/11/19 Alexis Lopez MD [address] [facility] [address] [address] Car Wash Manager Pulmonary Disease 05/11/19 Kip Del Rio MD [address] [facility] [place] [address] [place] [address] Medical Oncologist/Pattern Worker Hematology and Oncology 05/11/19 Jacob Flynn MD [address] [facility] [address] [facility] [place] [address] [place] [address] Radiation Oncologist Radiation Oncology 05/25/19 documented as of this encounter
--- OUTSIDE RECORDS SUMMARY | 2024-03-02 03:46 | XMS_ITS | Encounter Summary ---
Author Organization [facility] Address [address] [place] [address] Phone Care Team Providers Care Junior Web Developer Name Role Phone Clara Stanley Primary Care Provider + Jasper Canchola MD Unavailable Alexis Lopez MD Unavailable Kip Del Rio MD Unavailable Jacob Flynn MD Unavailable [phone] Encounter Details Date Type Department Care Team (Late st Contact Info) Description 05/31/2020 Telephone [facility] Oncology [address] [facility] Advanced [facility] 7th [place] [address] [place] [address] Imelda De Leon RN Social History Tobacco Use Types Packs/Day Years Used Date Smoking Tobacco: Never Smokeless Tobacco: Never Alcohol Use Standard Drinks/Week Comments Yes 2 (1 standard drink = 0.6 oz pur e alcohol) Sex and Gender Information Value Date Recorded Sex Assigned at Not on file 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 Del Rio did a peer to peer with [facility] MD- Dr. Martinez at [phone] in the next 24 hours. The appeal # is [id number]. Our office attempted to reach Dr. Martinez on 2 occasions and left 2 messages requesting a call back. documented in this encounter Plan of Treatment Not on file documented as of this encounter Visit Diagnoses Not on filedocumented in this encounter Care Teams Junior Web Developer Relationship Specialty Start Date End Date Clara Stanley PA [address] [place] [address] PCP - General Nurse Practitioner 04/05/19 Jasper Canchola MD [address] [place] [address] Surgeon Thoracic Surgery 05/11/19 Alexis Lopez MD [address] [address] Expeditionary Fighting Vehicle Crewman Pulmonary Disease 05/11/19 Kip Del Rio MD [address] [facility] [address] [place], [place] [id number] Medical Oncologist/Wellness Program Coordinator Hematology and Oncology 05/11/19 [place] [address] [place] [address] [address] [place] [address] Radiation Oncologist Radiation Oncology 05/25/19 documented as of this encounter
--- OUTSIDE RECORDS SUMMARY | 2024-03-02 03:46 | XMS_ITS | Encounter Summary ---
Author Organization [facility] Address [address] [place] [address] Care Team Providers Care Automation Tech Name Role Phone Clara Stanley Primary Care Provider + Jasper Canchola MD Unavailable Alexis Lopez MD Unavailable [phone] Kip Del Rio MD Unavailable [phone] Jacob Flynn MD Unavailable Reason for Referral * Diagnostic Imaging (Routine) - Closed Specialty Diagnoses / Procedures Referred By Erik galdamez Referred To Contact Radiology Diagnoses Lung nodule Procedures CT Chest W Contrast Jasper Canchola MD Phone: tel: fax: [address] [address] Referral ID Status Reason Start Date Expiration Date Visits Re quested Visits Authorized [id number] Closed 09/13/2019 03/11/2020 1 1 Reason for Visit * Diagnostic Imaging (Routine) - Closed Specialty Diagnoses / Procedures Referred By Erik galdamez Referred To Contact Radiology Diagnoses Lung nodule Procedures CT Chest W Contrast Jasper Canchola MD Phone: tel: fax: [address] [address] Referral ID Status Reason Start Date Expiration Date Visits Re quested Visits Authorized [id number] Closed 09/13/2019 03/11/2020 1 1 Encounter Details Date Type Department Care Team (Latest Contact Info) Description 09/23/2019 8:12 AM CDT - 09/23/2019 11:59 PM CDT Hospital Encounter [facility]iology [facility] [address] [place] [address] Jasper Canchola MD [address] [place] [address] Lung nodule Discharge Disposition: Discharge to home or self care Social History Tobacco Use Types Packs/Day Years Used Date Smoking Tobacco: Never Smokeless Tobacco: Never Alcohol Use Standard Drinks/Week Comments Yes 2 (1 standard drink = 0.6 oz pur e alcohol) Sex and Gender Information Value Date Recorded Sex Assigned at Not on file 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 Do not swallow. 1 Inhaler 5 08/25/2019 2 cetirizine (ZyrTEC) 10 mg tabletIndications :Seasonal Allergic Rhinitis Take 10 mg by mouth every morning 2 fluticasone propionate (FLONASE) 50 mcg/actuation nasal spray 06/12/2019 2 gabapentin (NEURONTIN) 300 mg capsule Take 1 capsule (300 mg total) by mouth nightly for 14 days 14 capsule 05/30/2019 1 gabapentin (NEURONTIN) 300 mg capsule Take 300 mg by mouth 3 (three) times a day 09/05/2019 0 LORazepam (ATIVAN) 0.5 mg tabletIndications :anxiety [...] CONTRAST Schedule Routine, Read Routine (OP Routine) 09/23/2019 9:01 AM CDT Lung nodule POCT CREATININE - DEVICE Routine 09/23/2019 8:40 AM CDT documented in this encounter Results * CT Chest W Contrast (09/23/2019 9:01 AM CDT) Anatomical Region Laterality Modality Body N/A Computed Tomogra phy 09/23/2019 9:18 AM CDT Impressions 09/23/2019 9:50 AM CDT 1. ??Interval right lower lobectomy with small loculated pleural effusion with associated pleural thickening, most likely representing evolving hematoma/hemothorax in the setting of recent surgery. 2. Pulmonary nodules in the peripheral right upper lobe along the right minor fissure, most likely represent subpleural/fissural lymph nodes. ??Recommend attention on follow-up imaging. 3. 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 Dictated by: Antwan Viveros M.D. The radiology attending physician has personally reviewed this study, and had reviewed and/or edited this written report and agrees with it. Electronically signed by: Xander Rushing M.D. Narrative 09/23/2019 9:50 AM CDT EXAMINATION: ??Computed tomography of the chest with intravenous contrast HISTORY: Lung nodule, follow-up TECHNIQUE: ??Transaxial computed tomographic images of the chest were obtained with intravenous contrast according to the standard protocol after the uneventful administration of 100 mL Opti-Ray 350 intravenous contrast. COMPARISON: Outside hospital chest CT 04/22/2019. FINDINGS: ?? Visualized thyroid is unremarkable. ??Heart is normal without pericardial effusion. ??Great vessels are normal in caliber and configuration. ??Calcifications are present within the left anterior descending artery. ??Mild gynecomastia. ??No large central pulmonary embolus. No pathologically enlarged supraclavicular, axillary, mediastinal, or hilar lymph nodes. ??Multiple prominent but subcentimeter mediastinal lymph nodes are present. Postoperative changes of right lower lobectomy with a small loculated right pleural effusion with associated pleural thickening. ??There is a 4 mm polygonal nodule in the peripheral right upper lobe at slice position -169.8 along the right minor fissure. ??Similarly, there is a 4 mm nodule along the right minor fissure at slice position -167.8. There is a chronic, nonunited right posterior 6th rib fracture that has developed in the interim since the most recent prior examination, likely related to thoracic surgery. No focal pneumonic consolidation. ??No pulmonary edema. ??No left pleural effusion. ??No pneumothorax. Limited images of the upper abdomen are unremarkable. No suspicious lytic or blastic osseous lesion. Procedure Note Xander Rushing MD - 09/23/2019 EXAMINATION: Computed tomography of the chest with intravenous contrast HISTORY: Lung nodule, follow-up TECHNIQUE: Transaxial computed tomographic images of the chest were obtained with intravenous contrast according to the standard protocol after the uneventful administration of 100 mL Opti-Ray 350 intravenous contrast. COMPARISON: Outside hospital chest CT 04/22/2019. FINDINGS: Visualized thyroid is unremarkable. Heart is normal without pericardial effusion. Great vessels are normal in caliber and configuration. Calcifications are present within the left anterior descending artery. Mild gynecomastia. No large central pulmonary embolus. No pathologically enlarged supraclavicular, axillary, mediastinal, or hilar lymph nodes. Multiple prominent but subcentimeter mediastinal lymph nodes are present. Postoperative changes of right lower lobectomy with a small loculated right pleural effusion with associated pleural thickening. There is a 4 mm polygonal nodule in the peripheral right upper lobe at slice position -169.8 along the right minor fissure. Similarly, there is a 4 mm nodule along the right minor fissure at slice position -167.8. There is a chronic, nonunited right posterior 6th rib fracture that has developed in the interim since the most recent prior examination, likely related to thoracic surgery. No focal pneumonic consolidation. No pulmonary edema. No left pleural effusion. No pneumothorax. Limited images of the upper abdomen are unremarkable. No suspicious lytic or blastic osseous lesion. IMPRESSION: 1. Interval right lower lobectomy with small loculated pleural effusion with associated pleural thickening, most likely representing evolving hematoma/hemothorax in the setting of recent surgery. 2. Pulmonary nodules in the peripheral right upper lobe along the right minor fissure, most likely represent subpleural/fissural lymph nodes. Recommend attention on follow-up imaging. 3. 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 Dictated by: Antwan Viveros M.D. The radiology attending physician has personally reviewed this study, and had reviewed and/or edited this written report and agrees with it. Electronically signed by: Xander Rushing M.D. Jasper Canchola MD IMG CT PROCEDURES Final R esult * POCT creatinine (09/23/2019 8:40 AM CDT) Creatinine POC 0.8 0.7 - 1.3 mg/dL [facility] Blood specimen (specimen) 09/23/2019 8:40 AM CDT 09/23/2019 8:40 AM CDT Jasper Canchola MD LAB POCT ORDERABLES - DEV ICE Final Result [facility] One [facility] [place] [address] documented in this encounter Visit Diagnoses Diagnosis Lung nodule Other diseases of lung, not elsewhere classified documented in this encounter Administered Medications Inactive Administered Medications - up to 3 most recent administrations Medication Order MAR Action Action Date Dose Rate Site ioversoL (OPTIRAY 350) syringe syringe 100 mL 100 mL, intravenous, Once in imaging, contrast, Starting on Thu09/23/19 at 0851, For 1 dose Given 09/23/2019 9:01 AM CDT 100 mL documented in this encounter Orders Medications Ordered That Vikram ht Not Have Been Administered Count Last Ordered Date First Ordered Date ioversoL (OPTIRAY 350) syrin ge syringe 100 mL 1 09/23/2019 documented in this encounter Care Teams Automation Tech Relationship Specialty Start Date End Date Clara Stanley PA [address] [place] [address] PCP - General Nurse Practitioner 04/05/19 Jasper Canchola MD [address] [place] [address] Surgeon Thoracic Surgery 05/11/19 Alexis Lopez MD [address] [facility] [address] [place] [address] [place] [address] Metal Wire Coating Operator Pulmonary Disease 05/11/19 Kip Del Rio MD [address] [facility] [address] [place] [address] Medical Oncologist/Cpa Tax Hematology and Oncology 05/11/19 Jacob Flynn MD [address] [facility] [address] [place] [address] Radiation Oncologist Radiation Oncology 05/25/19 documented as of this encounter
--- OUTSIDE RECORDS SUMMARY | 2024-03-02 03:46 | XMS_ITS | Encounter Summary ---
Author Organization [facility] Address [address] [place] [address] Phone Care Team Providers Care Coal Digger Name Role Phone Clara Stanley Primary Care Provider + Jasper Canchola MD Unavailable Alexis Lopez MD Unavailable Kip Del Rio MD Unavailable Jacob Flynn MD Unavailable Encounter Details Date Type Department Care Team (Late st Contact Info) Description 05/31/2020 Telephone [facility] Oncology [address] [facility] 7th [place] [address] [place] [address] Yesica Montelongo CMA Social History Tobacco Use Types Packs/Day Years Used Date Smoking Tobacco: Never Smokeless Tobacco: Never Alcohol Use Standard Drinks/Week Comments Yes 2 (1 standard drink = 0.6 oz pur e alcohol) Sex and Gender Information Value Date Recorded Sex Assigned at Not on file 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 Martinez with [facility] regarding peer to peer for denied pathology procedure from 05/30/2019 and stated that we had 24 hours to call. She left a appeal # [id number]. I called and left two (2) messages as she stated that this was an urgent matter. I informed both the GLASS PRODUCTS INSPECTOR/RN. documented in this encounter Plan of Treatment Not on file documented as of this encounter Visit Diagnoses Not on filedocumented in this encounter Care Teams Coal Digger Relationship Specialty Start Date End Date Clara Stanley PA [address] [place] [address] PCP - General Nurse Practitioner 04/05/19 Jasper Canchola MD [address] [place] [address] Surgeon Thoracic Surgery 05/11/19 Alexis Lopez MD [address] [address] Planner/Scheduler Pulmonary Disease 05/11/19 Kip Del Rio MD [address] [place] [address] Medical Oncologist/Mountain Guide Hematology and Oncology 05/11/19 Jacob Flynn MD [address] [place] [address] Radiation Oncologist Radiation Oncology 05/25/19 documented as of this encounter
--- OUTSIDE RECORDS SUMMARY | 2024-03-02 03:46 | XMS_ITS | Encounter Summary ---
Author Organization [facility] Address [address] [facility] [address] [place] [address] Care Team Providers Care Senior Chemist Name Role Phone Clara Stanley Primary Care Provider + Jasper Cancohla MD Unavailable Alexis Lopez MD Unavailable Kip Del Rio MD Unavailable Jacob Flynn MD Unavailable Encounter Details Date Type Department Care Team (Late st Contact Info) Description 08/25/2019 Telephone [facility] Pulmonology [address] [facility] [address] [place] [address] Yolanda Segal, KAMILA Social History Tobacco Use Types Packs/Day Years Used Date Smoking Tobacco: Never Smokeless Tobacco: Never Alcohol Use Standard Drinks/Week Comments Yes 2 (1 standard drink = 0.6 oz pur e alcohol) Sex and Gender Information Value Date Recorded Sex Assigned at Not on file 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 Do not swallow. 1 Inhaler 5 08/25/2019 09/12/2021 documented in this encounter Miscellaneous Notes * Telephone Encounter - Yolanda Segal RN - 08/25/2019 12:17 PM CDT Spoke with pt regarding Dr Lopez's recommendation below. Pt verbalized understanding. Medicationhas been sent to pharmacy. * Telephone Encounter - Alexis Lopez MD - 08/25/2019 12:08 PM CDT Okay to start Symbicort 160/4.5 2 puffs b.i.d. and rinse mouth with water after use * Telephone Encounter - Yolanda Segal RN - 08/25/2019 8:46 AM CDT Pt called stating he has completed methacholine challenge yesterday and was told it looks like he has asthma. He has an Albuterol inhaler from his ENT that he has been using but it just isn't helping. Pt stated he is constantly coughing and most times it is productive. He has a follow up appt on 08/31/19 but is requesting medication prior to coming in to help with the cough. Last Visit: 08/17/19 Follow Up: 08/31/19 Allergies: Nkda documented in this encounter Plan of Treatment Not on file documented as of this encounter Visit Diagnoses Not on filedocumented in this encounter Care Teams Senior Chemist Relationship Specialty Start Date End Date Clara Stanley PA [address] [place] [address] PCP - General Nurse Practitioner 04/05/19 Jasper Canchola MD [address] [place] [address] Surgeon Thoracic Surgery 05/11/19 Alexis Lopez MD [address] [facility] [address] [place] [address] [place] [address] Supervisor Decorating Pulmonary Disease 05/11/19 Kip Del Rio MD [address] [facility] [address] [place] [address] Medical Oncologist/Archives Technician Hematology and Oncology 05/11/19 Jacob Flynn MD [address] [facility] [address] [place] [address] Radiation Oncologist Radiation Oncology 05/25/19 documented as of this encounter
--- OUTSIDE RECORDS SUMMARY | 2024-03-02 03:46 | XMS_ITS | Encounter Summary ---
Author Organization [facility] Address [address] [facility] [address] [place] [address] Care Team Providers Care Senior Portfolio Analyst Name Role Phone Clara Stanley Primary Care Provider + Jasper Canchola MD Unavailable Alexis Lopez MD Unavailable [phone] Kip Del Rio MD Unavailable Jacob Flynn MD Unavailable Encounter Details Date Type Department Care Team (Late st Contact Info) Description 10/24/2019 Telephone [facility] Pulmonology [address] [facility] [address] [place] [address] Deb Marcum MA Social History Tobacco Use Types Packs/Day Years Used Date Smoking Tobacco: Never Smokeless Tobacco: Never Alcohol Use Standard Drinks/Week Comments Yes 2 (1 standard drink = 0.6 oz pur e alcohol) Sex and Gender Information Value Date Recorded Sex Assigned at Not on file 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 Gender Identity Not on file Sexual Orientation Straight 09/22/2019 8: 21 PM CDT documented as of this encounter Miscellaneous Notes * Telephone Encounter - Deb Marcum MA - 10/24/2019 12:08 PM CDT error documented in this encounter Plan of Treatment Not on file documented as of this encounter Visit Diagnoses Not on filedocumented in this encounter Care Teams Senior Portfolio Analyst Relationship Specialty Start Date End Date Clara Stanley PA [address] [place] [address] PCP - General Nurse Practitioner 04/05/19 Jasper Canchola MD [address] [place] [address] Surgeon Thoracic Surgery 05/11/19 Alexis Lopez MD [address] [address] Counter Help Pulmonary Disease 05/11/19 Kip Del Rio MD [address] [address] [place] [address] Medical Oncologist/Bakery Manager Hematology and Oncology 05/11/19 Jacob Flynn MD [address] [facility] [address] [place] [address] Radiation Oncologist Radiation Oncology 05/25/19 documented as of this encounter
--- OUTSIDE RECORDS SUMMARY | 2024-03-02 03:46 | XMS_ITS | Encounter Summary ---
Author Organization [facility] Address [address] [place] [address] Care Team Providers Care Retail Mortgage Banker Name Role Phone Clara Stanley Primary Care Provider + Jasper Canchola MD Unavailable Alexis Lopez MD Unavailable Kip Del Rio MD Unavailable Jacob Flynn MD Unavailable Encounter Details Date Type Department Care Team (Late st Contact Info) Description 11/03/2019 8:55 AM CDT - 11/03/2019 9:15 AM CDT Hospital Encounter [facility] OP INTERIM Alexis Lopez MD [address] [facility] [address] [address] Discharge Disposition: Discharge to home or self care Social History Tobacco Use Types Packs/Day Years Used Date Smoking Tobacco: Never Smokeless Tobacco: Never Alcohol Use Standard Drinks/Week Comments Yes 2 (1 standard drink = 0.6 oz pur e alcohol) Sex and Gender Information Value Date Recorded Sex Assigned at Not on file Legal Sex Male 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 us Historical Provider Final Res ult documented in this encounter Visit Diagnoses Not on filedocumented in this encounter Care Teams Retail Mortgage Banker Relationship Specialty Start Date End Date Clara Stanley PA [address] [place] [address] PCP - General Nurse Practitioner 04/05/19 Jasper Canchola MD [address] [place] [address] Surgeon Thoracic Surgery 05/11/19 Alexis Lopez MD [address] [facility] [address] [address] Measurement Superintendent Pulmonary Disease 05/11/19 Kip Del Rio MD [address] [facility] [address] [place] [address] Medical Oncologist/Cop Winder Hematology and Oncology 05/11/19 Jacob Flynn MD [address] [facility] [address] [place] [address] Radiation Oncologist Radiation Oncology 05/25/19 documented as of this encounter
--- OUTSIDE RECORDS SUMMARY | 2024-03-02 03:46 | XMS_ITS | Encounter Summary ---
Author Organization [facility] Address [address] [place] [address] Care Team Providers Care Customer Security Clerk Name Role Phone Clara Stanley Primary Care Provider + Jasper Canchola MD Unavailable Alexis Lopez MD Unavailable Kip Del Rio MD Unavailable Jacob Flynn MD Unavailable [phone] Encounter Details Date Type Department Care Team (Late st Contact Info) Description 08/10/2019 8:29 AM CDT Anesthesia Event [facility] Operating Room [address] [place] [address] Keaton Beck MD [address] [facility] [address] [place] [address] Laura Miguel, ANTI TANK MISSILEMAN [address] [facility] [phone] [place] [address] Anesthesia Record Procedure Summary Procedure Name Responsible Anesthesiologist Anesthesia Start Time Anesthesia Stop Time BRONCHOSCOPY (Bronchus) Keaton Beck MD 08/10/19 0829 08/10/19 0859 Events Date Time Event Comment 08/10/2019 0829 An Start 0831 In Room 0832 An Start Data 0835 An Induction The patient was reevaluated immediately before moderate or deep sedation use and before anesthesia induction. 0836 An LMA 0839 Anesthesia Ready 0841 Proc Start 0847 Airway Removed 0850 an stop data 0851 Proc Fin 0853 Out of Room 0859 Handoff to RN I completed my handoff to the receiving nurse during which we: 1. Patient identified 2. Responsible provider identified 3. Pertinent medical history reviewed 4. Procedure type and surgical course discussed 5. Intraoperative anesthetic management and any significant issues discussed 6. Expectations and concerns for postop period discussed 7. Questions solicited from receiving nurse 8. Patient disposition at the time of handoff: PACU 0859 An Stop Meds Name Total propofol 250 mg * Agents Name O2% N2O O2 Sevoflurane Inspired Sevoflurane * Blood No blood administrations on file. Lines, Drains, and Airways Type Details Placement Removal RETIRED Surgical Site 05/19/19; 0633; Ne ck; 02/16/24 (Retired LDA, Removed/Completed by [facility] with LDA Utility); 1213 (Retired LDA, Removed/Completed by [facility] with LDA Utility) 05/19/19 0633 by Rickey Booker RN 02/16/24 1213 by Discharge Provider, Automatic RETIRED Surgical Site 05/26/19; 0916; Ri ght; Chest; 02/16/24 (Retired LDA, Removed/Completed by [facility] with LDA Utility); 1213 (Retired LDA, Removed/Completed by [facility] with LDA Utility) 05/26/19 0916 by Rickey Booker RN 02/16/24 1213 by Discharge Provider, Automatic Peripheral IV Placement Date: 08/10/19; Placement Time: 0737; Catheter Size: 18 G; Orientation: Left; Location: Hand; Site Prep: Chlorhexidine; Technique: Anatomical landmarks; Insertion Attempts: 1; Patient Tolerance: Tolerated well; Removal Date: 08/10/19; Removal Time: 1015; Removal Reason: Discharge 08/10/19 0737 by Deja Bustamante RN 08/10/19 1015 by Shelby España RN Supraglottic Airway Placement Date: 08/10/19; Placement Time: 0844 (created via procedure documentation); Mask Ventilation: 0; Size: 5; Insertion Attempts: 1; Removal Date: 08/10/19; Removal Time: 84608/10/19 0844 by Cuauhtemoc Solis MD 08/10/19 0847 by Cuauhtemoc Solis MD documented in this encounter Social History Tobacco Use Types Packs/Day Years Used Date Smoking Tobacco: Never Smokeless Tobacco: Never Alcohol Use Standard Drinks/Week Comments Yes 2 (1 standard drink = 0.6 oz pur e alcohol) Sex and Gender Information Value Date Recorded Sex Assigned at Not on file 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 Gender Identity Not on file Sexual Orientation Straight 09/22/2019 8: 21 PM CDT documented as of this encounter OR Notes * Anesthesia Postprocedure Evaluation - Keaton Beck MD - 08/16/2019 5:17 PM CDT Patient: Kwaku Kulkarni Procedure Summary Date: 08/10/19 Room / Location: [facility] OR POD 3 ROOM 303 / [facility] OR POD 3 Anesthesia Start: 828 Anesthesia Stop: 858 Procedure: BRONCHOSCOPY (N/A Bronchus) Diagnosis: Cough, persistent (Cough, persistent [R05]) Surgeon: Jasper Canchola MD Responsible Provider: Keaton Beck MD Anesthesia Type: general ASA Status: 3 Anesthesia Type: general Last vitals BP 128/86 Pulse 80 Temp 36.6 ??C (97.9 ??F) (Temporal) Resp 20 SpO2 98% Anesthesia Post Evaluation Patient location during evaluation: PACU Patient participation: complete - patient participated Level of consciousness: fully awake Pain management: adequate Airway patency: adequate Evidence of recall: no Anesthetic complications: no Cardiovascular status: acceptable, blood pressure returned to baseline and hemodynamically stable Respiratory status: acceptable Hydration status: acceptable Pt is: normothermic Nausea/Vomiting status: none * Anesthesia Procedure Notes - Cuauhtemoc Solis MD - 08/10/2019 8:43 AM CDT Associated Order(s): Airway Airway Patient location: OR Urgency: elective Indications for airway management: anesthesia Difficult airway: no Staff: Supervising provider: Keaton Beck MD Placed by: Resident: Cuauhtemoc Solis MD Emergent airway documentation: Risks and benefits discussed: yes Consent obtained: yes Consent given by: patient Airway prep: Preoxygenated: yes Patient position: sniffing Mask difficulty assessment: 0 - not attempted Spontaneous ventilation during airway: absent Sedation level during airway: GA Final airway details: Final airway type: supraglottic airway Final supraglottic airway: IGel SGA size: 5 Number of attempts: 1 * Anesthesia Preprocedure Evaluation - Keaton Beck MD - 08/03/2019 4:41 PM CDT Images from the original note were not included. [facility] Preoperative [facility] Planning Preoperative Evaluation Record Evaluation type/location: [facility] Planned procedure site: [facility] (Pods 2/3/5/MOTION GRAPHICS DESIGNER) Date: 08/03/19 Anesthesia Evaluation NOTE: This note [...] to be performed on 08-08-2019 at the [facility]. . Blood bank needs for day [...] acetaminophen (TYLENOL) 325 mg tablet 05/30/19 -- Keke Pratt NP Take 2 tablets (650 mg [...] (ATIVAN) 0.5 mg tablet -- -- Historical ProviderMD oxyCODONE (ROXICODONE) 10 mg tablet Not Taking 05/30/19 -- John Fernando MD Take 1-1.5 tablets (10-15 mg total) by mouth every 3 (three) hours as needed for pain Patient not taking: Reported on 08/03/2019 polyethylene glycol (MIRALAX) 17 gram packet Not Taking 05/31/19 -- eKke Pratt NP Take 1 packet (17 g total) by mouth daily This medication can be found over the counter, please follow the instructions listed on the packaging. Patient not taking: Reported on 08/03/2019 pravastatin (PRAVACHOL) 20 mg tablet 04/10/19 -- Historical ProviderMD No current facility-administered medications for this encounter. [...] last 720 hours. Enzo index score: 100 DOS Physical Exam Medical history, medications, and allergies reviewed. Attestation: This PAT evaluation 08/10/2019. Airway Exam: Mallampati: III TM distance: >4 Jaw ROM: full Cardiovascular Exam: Rate: regular Rhythm: regular Pulmonary Exam: LCTA EENT Exam: trachea midline Current state: Patient's current state is cooperative. Anesthesia Plan ASA 3 Planned anesthesia: General Team communication plan: LMA Induction: Induction: intravenous. Postoperative Plan: Postoperative administration opioids intended. No postoperative mechanical ventilation intended. Patient's planned disposition post procedure is Floor. Informed Consent: Anesthesia plan and risks discussed with patient. Consent and Attending signature: I and/or my designee have discussed the anesthesia plan, benefits, possible alternatives, parental presence at time of induction (if indicated), and clinically relevant risks that may include dental injury, unintentional awareness, and/or other complications. The patient and/or parent/legal guardian understand, and agree to proceed. All questions answered. documented in this encounter Plan of Treatment Not on file documented as of this encounter Procedures Procedure Name Priority Date/Time Associated Diagnosis Comments ANESTHESIA INTUBATION Routine 08/10/2019 8:43 AM CDT documented in this encounter Results * Airway (08/10/2019 8:43 AM CDT) Narrative Cuauhtemoc Solis MD - 08/10/2019 8:43 AM CDT Cuauhtemoc Solis MD ? 08/10/2019 ??8:44 AM Airway Patient location: OR Urgency: elective Indications for airway management: anesthesia Difficult airway: no Staff: Supervising provider: Keaton Beck MD Placed by: Resident: Cuauhtemoc Solis MD Emergent airway documentation: Risks and benefits discussed: yes Consent obtained: yes Consent given by: patient Airway prep: Preoxygenated: yes Patient position: sniffing Mask difficulty assessment: 0 - not attempted Spontaneous ventilation during airway: absent Sedation level during airway: GA Final airway details: Final airway type: supraglottic airway Final supraglottic airway: IGel SGA size: 5 Number of attempts: 1 us Keaton Beck MD ANESTHESIA ORDERABLE S Final Result documented in this encounter Visit Diagnoses Not on filedocumented in this encounter Administered Medications Inactive Administered Medications - up to 3 most recent administrations Medication Order MAR Action Action Date Dose Rate Site propofoL (DIPRIVAN) IV intravenous, As needed, Starting on Thu08/10/19 at 0835, Anesthesia Intra-op Given 08/10/2019 8:41 AM CDT 50 mg Given 08/10/2019 8:35 AM CDT 200 mg documented in this encounter Care Teams Customer Security Clerk Relationship Specialty Start Date End Date Clara Stalney PA [address] [place] [address] PCP - General Nurse Practitioner 04/05/19 Jasper Canchola MD [address] [place] [address] Surgeon Thoracic Surgery 05/11/19 Alexis Lopez MD [address] [address] Benefits Specialist Recruiter Pulmonary Disease 05/11/19 Kip Del Rio MD [address] [address] [place] [address] Medical Oncologist/Concrete Paver Hematology and Oncology 05/11/19 Jacob Flynn MD [address] [facility] [address] [place] [address] Radiation Oncologist Radiation Oncology 05/25/19 documented as of this encounter
--- OUTSIDE RECORDS SUMMARY | 2024-03-02 03:46 | XMS_ITS | Encounter Summary ---
Author Organization [facility] Address [address] [place] [address] Care Team Providers Care Rail Director Name Role Phone Clara Stanley Primary Care Provider + Jasper Canchola MD Unavailable Alexis Lopez MD Unavailable [phone] Kip Del Rio MD Unavailable Jacob Flynn MD Unavailable Reason for Visit * Reason Comments Follow-up Encounter Details Date Type Department Care Team (Late st Contact Info) Description 08/17/2019 11:15 AM CDT Office Visit [facility] Pulmonology [address] [facility] [place] [id number] Alexis Lopez MD [address] [facility] [address] [place] [address] High grade neuroendocrine carcinoma (CMS/HCC) (Primary Dx); Cough, persistent Social History Tobacco Use Types Packs/Day Years Used Date Smoking Tobacco: Never Smokeless Tobacco: Never Alcohol Use Standard Drinks/Week Comments Yes 2 (1 standard drink = 0.6 oz pur e alcohol) Sex and Gender Information Value Date Recorded Sex Assigned at Not on file 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 Gender Identity Not on file Sexual Orientation Straight 09/22/2019 8: 21 PM CDT documented as of this encounter Last Filed Vital Signs Vital Sign Reading Time Taken Comments Blood Pressure 125/79 08/17/2019 11:06 AM CDT Pulse 75 08/17/2019 11:06 AM CDT Temperature 36.2 ??C (97.2 ??F) 08/17/2019 1 1:06 AM CDT Respiratory Rate 18 08/17/2019 11:0 6 AM CDT Oxygen Saturation 98% 08/17/2019 11: 06 AM CDT Inhaled Oxygen Concentration - - Weight 149.8 kg (330 lb 3.2 oz) 020 11:06 AM CDT Height - - Body Mass Index 41.27 08/03/2019 3:05 PM CDT documented in this encounter Progress Notes * Alexis Lopez MD - 08/17/2019 11:15 AM CDT Progress Note Patient: Kwaku Kulkarni ( - 1965) is a 54 y.o. male. Visit Date: 08/17/2019 Chief Complaint Patient presents with ??? 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 He did see an oncologist- andno chemotherapy or radiation therapy was recommended. The patient returns today for chronic cough. He has been using Flonase and Zyrtec and continues to cough. He has an appointment with an allergistfor skin testing coming up soon. He did have a bronchoscopy performed at [facility] and there were no endobronchial lesions. Past Medical History: Past Medical History: Diagnosis Date ??? LEIDA (acute kidney injury) (CMS/HCC) ??? Carcinoid tumor of lung right lung ??? Chronic headaches 03/2019 IIH (idiopathic intracranial hypertension) ??? Hyponatremia ??? IIH (idiopathic intracranial hypertension) Surgical History: Past Surgical History: Procedure Laterality Date ??? APPENDECTOMY ??? BRONCHOSCOPY 05/30/2019 ??? COLONOSCOPY 2018 ??? COLONOSCOPY ??? ESOPHAGOGASTRODUODENOSCOPY 04/2019 ??? LUMBAR PUNCTURE 04/03/2019 ??? MEDIASTINOSCOPY 05/19/2019 Cervical Mediastinoscopy ??? THORACOTOMY 05/26/2019 THORACOTOMY LOBECTOMY / lymph node disection (Right) ??? TONSILLECTOMY Current Medications: Current Outpatient Medications Medication Sig Dispense Refill ??? acetaminophen (TYLENOL) 325 mg tablet Take 2 tablets (650 mg total) by mouth every 4 (four) hours as needed for pain This medication can be found over the counter, please follow the instructions listed on the packaging. 30 tablet ??? acetaZOLAMIDE ER (DIAMOX SEQUAL) 500 mg capsule Take 500 mg by mouth 2 (two) times a day ??? albuterol HFA (PROVENTIL HFA,VENTOLIN HFA,PROAIR HFA) 90 mcg/actuation inhaler INL 2 PFS PO Q 4H PRN ??? amLODIPine (NORVASC) 10 mg tablet Take 10 mg by mouth every morning ??? cetirizine (ZyrTEC) 10 mg tablet Take 10 mg by mouth every morning ??? fluticasone propionate (FLONASE) 50 mcg/actuation nasal spray ??? gabapentin (NEURONTIN) 300 mg capsule Take 1 capsule (300 mg total) by mouth 3 (three) times a day as needed (pain) 90 capsule 1 ??? LORazepam (ATIVAN) 0.5 mg tablet Take 0.5 mg by mouth every 6 (six) hours as needed for anxiety ??? pravastatin (PRAVACHOL) 20 mg tablet Take 20 mg by mouth every morning ??? benzonatate (TESSALON) 100 mg capsule Take 1 capsule (100 mg total) by mouth 3 (three) times a day as needed for cough (Patient not taking: Reported on 08/17/2019) 90 capsule 1 ??? cefuroxime (CEFTIN) 500 mg tablet Take 500 mg by mouth 2 (two) times a day ??? gabapentin (NEURONTIN) 300 mg capsule Take 1 capsule (300 mg total) by mouth nightly for 14 days (Patient taking differently: Take 300 mg by mouth nightly ) 14 capsule 0 ??? oxyCODONE (ROXICODONE) 10 mg tablet Take 1-1.5 tablets (10-15 mg total) by mouth every 3 (three) hours as needed for pain (Patient not taking: Reported on 08/17/2019) 42 tablet 0 ??? polyethylene glycol (MIRALAX) 17 gram packet Take 1 packet (17 g total) by mouth daily This medication can be found over the counter, please follow the instructions listed on the packaging. (Patient not taking: Reported on 08/17/2019) No current facility-administered medications for this visit. [...] on phone: None Gets together: None Attends alevism service: None Active member of club or [...] and unexpected weight change. HENT: Positive for rhinorrhea. Negative for sinus pressure, sinus pain, sore throat and [...] for dizziness and light-headedness. Physical Exam: Vitals: 08/17/19 1106 BP: 125/79 Pulse: 75 Resp: 18 Temp: 36.2 ??C (97.2 ??F) SpO2: 98% Weight: (!) 149.8 kg (330 lb 3.2 oz) Physical Exam Constitutional: Appearance: He is [...] person, place, and time. Data Reviewed Images: Chest x-ray report from 08/16/2019 FINDINGS: Postoperative changes involving the right hemithorax with partial right pneumonectomy again noted. There is stable volume loss involving the right hemithorax with linear scarring and probable atelectasis right lung base. No pneumothorax or congestive failure. Left lung is well expanded and clear. IMPRESSION: Stable postoperative changes to the right hemithorax with volume loss and scarring or atelectasis right lung base. Assessment and Plan: Diagnoses and all orders for this visit: High grade neuroendocrine carcinoma (CMS/HCC) (Primary) Comments: Dr. Canchola will be seeing the patient with a follow-up chest CT. I did tell the patient that I would assume the chest CT follow-ups when he is released . Cough, persistent Assessment & Plan: The patient will continue with Flonase and Hui for now. The residential care officer skin test is pending. I will check a methacholine challenge since he recently had normal PFTs. Orders: - Pulmonary Function Test -[facility]; Bronchial Provacation; Future Rendering Provider & Department: Alexis Lopez MD documented in this encounter Miscellaneous Notes * Assessment & Plan Note - Alexis Lopez MD - 08/17/2019 11:46 AM CDT Associated Problem(s): Cough, persistent The patient will continue with Flonase and Hui for now. The residential care officer skin test is pending. I will check a methacholine challenge since he recently had normal PFTs. documented in this encounter Plan of Treatment Not on file documented as of this encounter Visit Diagnoses Diagnosis High grade neuroendocrine carcinoma (HCC)- Primary Cough, persistent documented in this encounter Historical Medications * This list may reflect changes made after this encounter. fluticasone propionate (FLONASE) 50 mcg/actuation nasal spray 06/12/2019 02/26/2022 albuterol HFA (PROVENTIL HFA,VENTOLIN HFA,PROAIR HFA) 90 mcg/actuation inhaler INL 2 PFS PO Q 4 H PRN 07/27/2019 12/02/2019 added in this encounter Care Teams Rail Director Relationship Specialty Start Date End Date Clara Stanley PA [address] [place] [address] PCP - General Nurse Practitioner 04/05/19 Jasper Canchola MD [address] [place] [address] Surgeon Thoracic Surgery 05/11/19 Alexis Lopez MD [address] [address] Logistical Engineer Pulmonary Disease 05/11/19 Kip Del Rio MD [address] [place] [address] Medical Oncologist/Implant Polisher Hematology and Oncology 05/11/19 Jacob Flynn MD [address] [place] [address] Radiation Oncologist Radiation Oncology 05/25/19 documented as of this encounter
--- OUTSIDE RECORDS SUMMARY | 2024-03-02 03:46 | XMS_ITS | Encounter Summary ---
Author Organization [facility] Address [address] [place] [address] Care Team Providers Care Physician Surgeon Name Role Phone Clara Stanley Primary Care Provider + Jasper Canchola MD Unavailable Alexis Lopez MD Unavailable Kip Del Rio MD Unavailable Jacob Flynn MD Unavailable Encounter Details Date Type Department Care Team (Late [facility]) Description 03/28/2020 Orders Only [facility] [address] [place] [address] Ro Paige RN Social History Tobacco Use Types Packs/Day Years Used Date Smoking Tobacco: Never Smokeless Tobacco: Never Alcohol Use Standard Drinks/Week Comments Yes 2 (1 standard drink = 0.6 oz pur e alcohol) Sex and Gender Information Value Date Recorded Sex Assigned at Not on file 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 Gender Identity Not on file Sexual Orientation Straight 09/22/2019 8: 21 PM CDT documented as of this encounter Plan of Treatment Not on file documented as of this encounter Visit Diagnoses Not on filedocumented in this encounter Care Teams Physician Surgeon Relationship Specialty Start Date End Date Clara Stanley PA [address] [place] [address] PCP - General Nurse Practitioner 04/05/19 Jasper Canchola MD [address] [place] [address] Surgeon Thoracic Surgery 05/11/19 Alexis Lopez MD [address] [address] Hamper Maker Pulmonary Disease 05/11/19 Kip Del Rio MD [address] [facility] [address] [place] [address] Medical Oncologist/Contract Clerk Automobile Hematology and Oncology 05/11/19 Jacob Flynn MD [address] [place] [address] Radiation Oncologist Radiation Oncology 05/25/19 documented as of this encounter
--- OUTSIDE RECORDS SUMMARY | 2024-03-02 03:46 | XMS_ITS | Encounter Summary ---
Author Organization [facility] Address [address] [place] [address] Care Team Providers Care Biogeographer Name Role Phone Clara Stanley Primary Care Provider + Jasper Canchola MD Unavailable Alexis Lopez MD Unavailable [phone] Kip Del Rio MD Unavailable Jacob Flynn MD Unavailable Encounter Details Date Type Department Care Team (Latest Contact Info) Description 08/10/2019 6:46 AM CDT - 08/10/2019 10:30 AM CDT Hospital Encounter 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 Gender Identity Not on file Sexual Orientation [...] PM CDT documented in this encounter Discharge Diagnoses Diagnosis Cough - COUGH Personal history of malignant carcinoid tumor of bronchus and lung - PERSONAL HISTORY OF MALIGNANT CARCINOID TUMOR OF BRONCHUS AND LUNG Anxiety disorder, unspecified - ANXIETY DISORDER, UNSPECIFIED Cardiac arrhythmia, unspecified - CARDIAC ARRHYTHMIA, UNSPECIFIED Acute kidney failure, unspecified (HCC) - ACUTE KIDNEY FAILURE, UNSPECIFIED Acute kidney failure, unspecified Benign intracranial hypertension - BENIGN INTRACRANIAL HYPERTENSION Unspecified right bundle-branch block - UNSPECIFIED RIGHT BUNDLE-BRANCH BLOCK Other chronic pain - OTHER CHRONIC PAIN Headache - HEADACHE Morbid (severe) obesity due to excess calories (HCC) - MORBID (SEVERE) OBESITY DUE TO EXCESS CALORIES Body mass index (bmi) 30.0-30.9, adult - BODY MASS INDEX (BMI) 30.0-30.9, ADULT Personal history of other malignant neoplasm of bronchus and lung - PERSONAL HISTORY OF OTHER MALIGNANT NEOPLASM OF BRONCHUS AND LUNG Other terminologist (current) drug therapy - OTHER SUPERVISOR ALUM PLANT (CURRENT) DRUG THERAPY documented in this encounter Discharge Instructions * Discharge Instructions* Shelby España RN - 08/10/2019 9:15 AM CDT Resume home medications. No changes to activity, diet or medications. Follow up with primary care and privacy attorney as planned. Do not drive, operate heavy machinery or make any important life or legal decisions for 24 hours. Advance diet slowly to avoid nausea/vomiting. May call Dr. Canchola's office with any questions/concerns: [phone] * Attachments The following attachments cannot be sent through Care Everywhere. * Flexible Bronchoscopy (Discharge Care) (German) * [facility] PATHWAY TO EXCELLENT CARE AFTER SURGERY documented [...] and Planning Preoperative Evaluation Record Evaluation type/location: CPAP [facility] Planned procedure site: [facility] (Pods 2/3/5/PRESS ASSISTANT) Date: 08/03/19 Anesthesia Evaluation NOTE: This note [...] to be performed on 08-08-2019 at the [facility]. . Blood bank needs for day of [...] instructions were provided in writing sent via [employer] mail. Patient verbalized understanding of preoperative plan. [...] mg tablet Not Taking 05/30/19 -- John Frenando MD Take 1-1.5 tablets (10-15 mg total) [...] INCL FLUOR GDNCE DX W/CELL WASHG SPX [[id number]] (BRONCHOSCOPY) [facility] Preoperative [facility] and Planning Preoperative Evaluation Record ?? Evaluation type/location: CPAP [facility] ?? Planned procedure site: [facility] (Pods 2/3/5/PRESS ASSISTANT) ?? Date: 08/03/19 ?? Anesthesia Evaluation NOTE: [...] to be performed on 08-08-2019 at the [facility]. . Blood bank needs for day of [...] instructions were provided in writing sent via [employer] mail. Patient verbalized understanding of preoperative plan. [...] ? BRONCHOSCOPY ?? 05/30/2019 ??? COLONOSCOPY ?? 2019 ??? COLONOSCOPY ? ESOPHAGOGASTRODUODENOSCOPY ?? 04/2019 ??? [...] (TYLENOL) 325 mg tablet ?? 05/30/19 -- eKke Pratt NP ? Take 2 tablets (650 [...] 20 mg tablet ?? 04/10/19 -- Historical ProviderMD ? No current facility-administered medications for this [...] MD - Fellow Anesthesiologist: Keaton Beck MD Burnt Lime Drawer: Cuauhtemoc Solis MD Service Order Dispatcher: Rickey Booker RN Scrub: ST Froylan DATE OF SURGERY : 08/10/2019 Preoperative Diagnosis: [...] Diagnostic flexible bronchoscopy. Surgeon Jasper Canchola MD. Plastics And Composites Inspector Jorge Gonzales. Anesthesia General. Clinical Note This [...] no complications noted. Job ID/VF Job ID: [id number] * Pre-Procedure Instructions - Laura Miguel, ACCOUNTS ADMINISTRATOR - 08/03/2019 4:35 PM CDT [facility] Preoperative Assessment and Planning CPAP Clinic Location: [facility] The night before your surgery: * Do [...] Planning Perioperative Nursing Note Telephone Preoperative Evaluation ([facility]) - TELEPHONE ONLY, NO PHYSICAL EXAM Date: [...] Remaining: No SCREENINGS Pain Assessment: No/denies pain [place] Fall Risk Score (Retired): 15 Enzo index [...] Directive: Patient does not have advance directive Communication/Pleat Patternmaker Needs Communication Needs: Contacts, Glasses Assistive Devices/DME: Eyeglasses Discharge Planning Type of Residence: Private residence Living Arrangements: Spouse/significant other Support Systems: Spouse/significant other(water taxi driver: (esther)) Patient expects to be discharged to:: Private residence ADDITIONAL COMMENTS/ FOLLOW UP COVID test scheduled for 08-07 at [facility] * Pre-Procedure Instructions - Zenobia Adams [...] insurance card, a photo ID (like a Fighter Pilot's license) and a method of payment for [...] or department store or come by our [facility] CPAP clinic and we will give it [...] your physician. You may also contact the [facility] Dietitian, Ama Wellington, @ [phone]. ?? Increase energy needs: Your body uses [...] (meat, fish, eggs, milk, hard cheese, and Faroese yogurt). Plant sources (tofu, edamame, beans, nuts [...] Boost, Muscle Milk, Orgain-plant bases, Newby-plant bases, [place] Breakfast Essentials). ??? If your surgeon's office has not notified you of your surgery time by NOON THE DAY BEFORE your surgery, please call [phone] and ask for your surgeon's office. documented [...] mixed bacterial migue seen on Gram stain. [facility] Report Final Report: Growth indicates upper respiratory migue. [facility] Organism GROWTH INDICATES UPPER RESPIRATORY MIGUE. [facility] Bronchial washing (Bronchial) 08/10/2019 8:50 AM CDT 08/10/2019 12:10 PM CDT Narrative [facility] - 08/12/2019 9:15 AM CDT Tracheo-bronchial washing Testing performed by [facility] Microbiology Laboratory ([phone]) Specimens submitted from normally sterile body sites will have all bacterial morphotypes identified. ??Specimens that contain grossly mixed migue and/or are from body sites that are not normally sterile will be examined for Staphylococcus aureus, Pseudomonas aeruginosa, beta-hemolytic strep, vancomycin-resistant Enterococcus and fungus. ??If any of these are isolated, the organism will be reported. Current interpretive data was last revised on 2016. us Jasper Canchola MD LAB MICROBIOLOGY - GENERA L ORDERABLES Final Result [facility] [address] [facility] Department [place] [address] * (ABNORMAL) Mycology (fungal) culture Bronchial washing Bronchial (08/10/2019 8:50 AM CDT) Report Final Report: Rare Yeast Stephanie pneumonia is very rare and requires a histopathological diagnosis. ??The recovery of these organisms in routine culture, in most cases, only represents overgrowth of the organism secondary to antimicrobial therapy. Please contact the microbiology laboratory at [phone] if identification or susceptibility testing is clinically indicated. (.) [facility] Organism YEAST [facility] Bronchial washing (Bronchial) 08/10/2019 8:50 AM CDT 08/10/2019 12:08 PM CDT Narrative [facility] - 09/07/2019 9:33 AM CDT Tracheo-bronchial washing Testing performed by [facility] Microbiology Laboratory ([phone]). us Jasper Canchola MD LAB MICROBIOLOGY - GENERA L ORDERABLES Final Result [facility] [address] [facility] Department [place] [address] documented in this encounter Visit Diagnoses Diagnosis Cough, persistent- Primary documented in this encounter Admitting Diagnoses Diagnosis Cough, persistent documented in this encounter Administered Medications Inactive Administered Medications - up to 3 most recent administrations Medication Order MAR Action Action Date Dose Rate Site heparin 5,000 unit/mL injection 5,000 Units 5,000 Units, subcutaneous, Once, On Thu08/10/19 at 0800, For 1 dose, Pre-Op, Indications: Deep Vein Thrombosis PreventionIndication s:Deep Vein Thrombosis Prevention Given 08/10/2019 8:08 AM CDT 5,000 Units Right Lower Abdomen Lactated Ringer's (LR) infusion 30 mL/hr, intravenous, Continuous, Starting on Thu08/10/19 at 0800, Pre-Op New Bag 08/10/2019 7:41 AM CDT 30 mL/hr 30 mL/hr documented in this encounter Discontinued Medications Medication [...] (NORMODYNE,TRANDAT E) injection 5 mg 1 08/10/2019 lidocaine PF (XYLOCAINE) 10 mg/mL (1 %) preservative free injection 1 08/10/2019 naloxone (NARCAN) 0.4 mg/mL injection 0.04-0.4 mg 1 08/10/2019 ondansetron (ZOFRAN) injection 4 mg 1 08/09 oxyCODONE (ROXICODONE) tablet 5 mg 1 2019 sodium chloride 0.9% flush 0.5-20 mL 1 07/15 documented in this encounter Care Teams Biogeographer Relationship Specialty Start Date End Date Clara Stanley PA [address] [place] [address] PCP - General Nurse Practitioner 04/05/19 Jasper Canchola MD [facility] [place] [address] Surgeon Thoracic Surgery 05/11/19 Alexis Lopez MD [address] [place] [address] [place] [address] Hand Plug Shaper Pulmonary Disease 05/11/19 Kip Del Rio MD [address] [facility] [address] [place] [address] Medical Oncologist/Welfare Eligibility Interviewer Hematology and Oncology 05/11/19 Jacob Flynn MD [address] [facility] [address] [place] [address] Radiation Oncologist Radiation Oncology 05/25/19 documented as of this encounter
--- OUTSIDE RECORDS SUMMARY | 2024-03-02 03:46 | XMS_ITS | Encounter Summary ---
Author Organization [facility] Address [address] [place] [address] Care Team Providers Care Telegraph Plant Maintainer Name Role Phone Clara Stanley Primary Care Provider + Jasper Canchola MD Unavailable Alexis Lpoez MD Unavailable [phone] Kip Del Rio MD Unavailable Jacob Flynn MD Unavailable Reason for Visit * Reason Comments Follow-up Encounter Details Date Type Department Care Team (Late st Contact Info) Description 08/31/2019 11:45 AM CDT Office Visit [facility] Pulmonology [address] [facility] [address] [place] [phone] Alexis Lopez MD [address] [facility] [address] [place] [address] High grade neuroendocrine carcinoma (CMS/HCC) (Primary Dx); Cough, persistent; Snoring Social History Tobacco Use Types Packs/Day Years Used Date Smoking Tobacco: Never Smokeless Tobacco: Never Alcohol Use Standard Drinks/Week Comments Yes 2 (1 standard drink = 0.6 oz pur e alcohol) Sex and Gender Information Value Date Recorded Sex Assigned at Not on file 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 Gender Identity Not on file Sexual Orientation Straight 09/22/2019 8: 21 PM CDT documented as of this encounter Last Filed Vital Signs Vital Sign Reading Time Taken Comments Blood Pressure 112/77 08/31/2019 11:37 AM CDT Pulse 79 08/31/2019 11:37 AM CDT Temperature 36.6 ??C (97.8 ??F) 08/31/2019 11:37 AM C DT Respiratory Rate 18 08/31/2019 11:37 AM CDT Oxygen Saturation 99% 08/31/2019 11:37 AM CDT Inhaled Oxygen Concentration - - Weight 149.7 kg (330 lb) 08/31/2019 11:37 AM CDT Height 190.5 cm (6' 3 ) 08/31/2019 11:37 AM CDT Body Mass Index 41.25 08/31/2019 11:37 AM CDT documented in this encounter Progress Notes * Alexis Lopez MD - 08/31/2019 11:45 AM CDT Progress Note Patient: Kwaku Kulkarni ( - 1965) is a 54 y.o. male. Visit Date: 08/31/2019 Chief Complaint Patient presents with ??? Follow-up History of Present Illness: The patient is a 54-year-old male that returns for follow-up of his chronic persistent cough. Undergo a methacholine challenge last week and his FEV1 dropped by 25% at the 4th concentration of methacholine. He started Symbicort last week and is also continuing on Flonase and he also started Pepcid twice a day. He states that the cough has almost completely resolved. His states that the patient does snore but she has never witnessed him having apneic episodes. The patient is awake 2-3 timesat night with nocturia and complains of daytime hypersomnia. His weight is 330 lb. He did recently have skin testing by an underwriting support manager and was not found to be allergic to any environmental allergens. He was also requesting a pneumococcal vaccine. He is a candidate for the pneumococcal vaccine becauseof the cough variant of asthma. Past Medical History: Past Medical History: Diagnosis [...] 10 mg by mouth every morning ??? budesonide-formoteroL (SYMBICORT) 160-4.5 mcg/actuation inhaler Inhale [...] Reported on 08/17/2019) 90 capsule 1 ??? oxyCODONE (ROXICODONE) 10 mg tablet Take [...] on phone: None Gets together: None Attends bahai service: None Active member of club or [...] for dizziness and light-headedness. Physical Exam: Vitals: 08/31/19 1137 BP: 112/77 Pulse: 79 Resp: 18 Temp: 36.6 ??C (97.8 ??F) SpO2: 99% Weight: (!) 149.7 kg (330 lb) Height: 190.5 cm (6' 3 ) [...] person, place, and time. Data Reviewed Images: No results found. Assessment and Plan: Diagnoses and all orders for this visit: High grade neuroendocrine carcinoma (CMS/HCC) (Primary) Comments: He is following with Dr. Canchola at [facility] in September with another chest CT Cough, persistent Assessment & Plan: The patient's cough has essentially resolved with treatment of his cough variant of asthma with Symbicort, gastroesophageal reflux with Pepcid and Flonase for postnasal drip. I did tell him he could try stopping the Flonase and/or the Pepcid to see if the Symbicort alone would control the cough. Orders: - Pneumococcal polysaccharide vaccine 23-valent greater than or equal to 2yo subcutaneous/IM (PNEUMOVAX) Snoring Assessment & Plan: With his snoring and daytime hypersomnia, I have recommended proceeding with a nocturnal polysomnogram with a split night protocol if necessary and no MSLT. Orders: - PSG-Sleep Provider Use Only; Future Rendering Provider & Department: Alexis Lopez MD documented in this encounter Miscellaneous Notes * Assessment & Plan Note - Alexis Lopez MD - 08/31/2019 12:05 PM CDT Associated Problem(s): Cough, persistent The patient's cough has essentially resolved with treatment of his cough variant of asthma with Symbicort, gastroesophageal reflux with Pepcid and Flonase for postnasal drip. I did tell him he could try stopping the Flonase and/or the Pepcid to see if the Symbicort alone would control the cough. * Assessment & Plan Note - Alexis Lopez MD - 08/31/2019 12:04 PM CDT Associated Problem(s): Snoring (Resolved 02/01/2021) With his snoring and daytime hypersomnia, I have recommended proceeding with a nocturnal polysomnogram with a split night protocol if necessary and no MSLT. documented in this encounter Plan of Treatment Not on file documented as of this encounter Visit Diagnoses Diagnosis High grade neuroendocrine carcinoma (HCC)- Primary Cough, persistent Snoring Other dyspnea and respiratory abnormality documented in this encounter Discontinued Medications Medication Sig Discontinue Reason Start Date End Da te gabapentin (NEURONTIN) 300 mg capsuleIndications:Posto perative Acute Pain Take 1 capsule (300 mg total) by mouth 3 (three) times a day as needed (pain) Duplicate order 06/09/2019 08/31/2019 cefuroxime (CEFTIN) 500 mg tabletIndications:Upper Respiratory/HEENT Infection Take 500 mg by mouth 2 (two) times a day 08/31/2019 documented as of this encounter Orders Immunization/Injection Count Last Ordered Date First Ordered Date PNEUMOCOCCAL POLYSACCHARIDE VACCINE 23-VALENT =>2YO SQ IM 1 08/31/2019 documented in this encounter Care Teams Telegraph Plant Maintainer Relationship Specialty Start Date End Date Clara Stanley PA [address] [place] [address] PCP - General Nurse Practitioner 04/05/19 Jasper Canchola MD [facility] [place] [address] Surgeon Thoracic Surgery 05/11/19 Alexis Lopez MD [address] [facility] [address] [address] Asphalt Layer Pulmonary Disease 05/11/19 Kip Del Rio MD [address] [facility] [address] [place] [address] Medical Oncologist/Barometers Calibrator Hematology and Oncology 05/11/19 Jacob Flynn MD [address] [facility] [address] [place] [address] Radiation Oncologist Radiation Oncology 05/25/19 documented as of this encounter
--- OUTSIDE RECORDS SUMMARY | 2024-03-02 03:46 | XMS_ITS | Encounter Summary ---
Author Organization [facility] Address [address] [place] [address] Care Team Providers Care Senior Civil Engineer Name Role Phone Clara Stanley Primary Care Provider + Jasper Canchola MD Unavailable Alexis Lopez MD Unavailable Kip Del Rio MD Unavailable Jacob Flynn MD Unavailable Encounter Details Date Type Department Care Team (Late st Contact Info) Description 08/09/2019 1:45 PM CDT Lab [address] [address] Pre-op testing Social History Tobacco Use Types Packs/Day Years Used Date Smoking Tobacco: Never Smokeless Tobacco: Never Alcohol Use Standard Drinks/Week Comments Yes 2 (1 standard drink = 0.6 oz pur e alcohol) Sex and Gender Information Value Date Recorded Sex Assigned at Not on file Legal Sex Male 1: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 HEALTH NURSE LICENSED PRACTICAL Gender Identity Not on file Sexual Orientation Straight 09/22/2019 8: 21 PM CDT documented as of this encounter Plan of Treatment Not on file documented as of this encounter Procedures Procedure Name Priority Date/Time Associated Diagnosis Comments COVID-19 CORONAVIRUS RNA Routine 08/09/2019 1:33 PM CDT Pre-op testing documented in this encounter Results * COVID-19 Coronavirus RNA Nasopharyngeal (08/09/2019 1:33 PM CDT) COVID-19 RNA Not Detected SEJAL HEARN Comment: Interpretive Data Testing performed at [facility] Molecular Infectious Disease [facility]. The 2019-Novel Coronavirus Assay (COVID-19) Real Time RT-PCR assay is for in vitro diagnostic use under FDA emergency use authorization only. A negative RT-PCR result does not preclude infection with COVID-19 and should not be used as the sole basis for treatment or other patient management decisions. Additional sample types have been validated according to CLIA regulations. ?? Current Interpretive Data was last revised on 2019. Nasopharyngeal 08/09/2019 1: 33 PM CDT 08/09/2019 2:37 PM CDT Narrative SEJAL HEARN - 08/09/2019 6:22 PM CDT Is the patient experiencing any symptoms consistent with COVID (eg. Fever, cough, shortness of breath)?->No What is the reason for testing?->Screening prior to scheduled (>24 hr) surgery or procedure us Jasper Canchola MD LAB MICROBIOLOGY - GENERA L ORDERABLES Final Result [facility] Department [place] [address] documented in this encounter Visit Diagnoses Diagnosis Pre-op testing Unspecified pre-operative examination documented in this encounter Care Teams Senior Civil Engineer Relationship Specialty Start Date End Date Clara Stanley PA [address] [place] [address] PCP - General Nurse Practitioner 04/05/19 Jasper Canchola MD [address] [place] [address] Surgeon Thoracic Surgery 05/11/19 Alexis Lopez MD [address] [facility] [address] [place] [address] [place] [address] Rhit Pulmonary Disease 05/11/19 Kip Del Rio MD [address] [facility] [address] [place] [address] Medical Oncologist/Warehouse Specialist Hematology and Oncology 05/11/19 Jacob Flynn MD [address] [facility] [address] [place] [address] Radiation Oncologist Radiation Oncology 05/25/19 documented as of this encounter
--- OUTSIDE RECORDS SUMMARY | 2024-03-02 03:46 | XMS_ITS | Encounter Summary ---
Author Organization [facility] Address [address] [place] [address] Care Team Providers Care Restaurant Mgr Name Role Phone Clara Stanley Primary Care Provider + Jasper Canchola MD Unavailable Alexis Lopez MD Unavailable Kip Del Rio MD Unavailable Jacob Flynn MD Unavailable Encounter Details Date Type Department Care Team (Late st Contact Info) Description 08/17/2019 Orders Only [facility] Pulmonology [address] [facility] [address] [place] [phone] Yoladna Segal, KAMILA Right lower lobe pulmonary nodule (Primary Dx) Social History Tobacco Use Types Packs/Day Years Used Date Smoking Tobacco: Never Smokeless Tobacco: Never Alcohol Use Standard Drinks/Week Comments Yes 2 (1 standard drink = 0.6 oz pur e alcohol) Sex and Gender Information Value Date Recorded Sex Assigned at Not on file Legal Sex Male 1:17 AM SCREENING TECH Gender Identity Not on file Sexual Orientation Straight 09/22/2019 8: 21 PM CDT documented as of this encounter Progress Notes * Yolanda Segal, KAMILA - 08/17/2019 2:22 PM CDT COVID order has been placed for PFT scheduled on 08/24/19 @ 0800. Faxed to [phone]. documented in this encounter Miscellaneous Notes * Addendum Note - Nomi More - 08/17/2019 2:22 PM CDTAddended by: NOMI MORE on: 08/22/2019 04:42 PM Modules accepted: Orders documented in this encounter Plan of Treatment Scheduled Orders Name Type Priority Associated Diagnoses Orde r Schedule COVID-19 Coronavirus RNA Nasopharyngeal Microbiology Routine Right lower lobe pulmonary nodule Expected: 08/22/2019, Expires: 08/16/2020 documented as of this encounter Visit Diagnoses Diagnosis Right lower lobe pulmonary nodule- Primary documented in this encounter Care Teams Restaurant Mgr Relationship Specialty Start Date End Date Clara Stanley PA [address] [place] [address] PCP - General Nurse Practitioner 04/05/19 Jasper Canchola MD [address] [place] [address] Surgeon Thoracic Surgery 05/11/19 Alexis Lopez MD [address] [address] Quality Improvement Consultant Pulmonary Disease 05/11/19 Kip Del Rio MD [address] [place] [address] Medical Oncologist/Creative Writing English Professor Hematology and Oncology 05/11/19 Jacob Flynn MD [address] [place] [address] Radiation Oncologist Radiation Oncology 05/25/19 documented as of this encounter
--- OUTSIDE RECORDS SUMMARY | 2024-03-02 03:46 | XMS_ITS | Encounter Summary ---
Author Organization [facility] Address [address] [place] [address] Care Team Providers Care Federal Mediation Commissioner Name Role Phone Clara Stanley Primary Care Provider + Jasper Canchola MD Unavailable [phone] Alexis Lopez MD Unavailable [phone] Kip Del Rio MD Unavailable Jacob Flynn MD Unavailable [phone] Reason for Referral * Diagnostic Imaging (Routine) - Closed Specialty Diagnoses / Procedures Referred By Erik galdamez Referred To Contact Radiology Diagnoses History of lung cancer Procedures CT Chest W Contrast Stephanie Bautista NP Phone: tel: fax: [address] [address] Referral ID Status Reason Start Date Expiration Date Visits Re quested Visits Authorized [id number] Closed 08/20/2020 11/18/2020 1 1 Reason for Visit * Diagnostic Imaging (Routine) - Closed Specialty Diagnoses / Procedures Referred By Erik galdamez Referred To Contact Radiology Diagnoses History of lung cancer Procedures CT Chest W Contrast Stephanie Bautista NP Phone: tel: fax: [address] [place] [address] Referral ID Status Reason Start Date Expiration Date Visits Re quested Visits Authorized [id number] Closed 08/20/2020 11/18/2020 1 1 Encounter Details Date Type Department Care Team (Latest Contact Info) Description 09/19/2020 1:36 PM CDT - 09/19/2020 11:59 PM CDT Hospital Encounter [facility] [address] [place] [address] Jasper Canchola MD [address] [facility] [id number] [place] [address] Stephanie Bautista NP [address] [facility] [id number] [place] [address] History of lung cancer Discharge Disposition: Discharge to home or self care Social History Tobacco Use Types Packs/Day Years Used Date Smoking Tobacco: Never Smokeless Tobacco: Never Alcohol Use Standard Drinks/Week Comments Yes 2 (1 standard drink = 0.6 oz pur e alcohol) Sex and Gender Information Value Date Recorded Sex Assigned at Not on file 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 Gender Identity Not on file Sexual [...] CONTRAST Schedule Routine, Read Routine (OP Routine) 09/19/2020 2:04 PM CDT History of lung cancer POCT CREATININE - DEVICE Routine 09/19/2020 1:52 PM CDT documented in this encounter Results [...] Bautista NP IMG CT PROCEDURES Final Result * POCT creatinine (09/19/2020 1:52 PM CDT) Creatinine POC 0.8 0.7 - 1.3 mg/dL [facility] Blood specimen (specimen) 09/19/2020 1:52 PM CDT 09/19/2020 1:52 PM CDT Stephanie Bautista NP LAB POCT ORDERABLES - DEVICE Fi nal Result [facility] [address] [facility] [place] [address] documented in this encounter Visit Diagnoses Diagnosis History of lung cancer Personal history of malignant neoplasm of bronchus and lung documented in this encounter Administered Medications Inactive Administered Medications - up to 3 most recent administrations Medication Order MAR Action Action Date Dose Rate Site ioversoL (OPTIRAY 350) syringe syringe 100 mL 100 mL, intravenous, Once in imaging, contrast, Starting on Thu09/19/20 at 1356, For 1 dose Contrast Given 09/19/2020 2:05 PM CDT 100 mL documented in this encounter Orders Medications Ordered That Vikram ht Not Have Been Administered Count Last Ordered Date First Ordered Date ioversoL (OPTIRAY 350) syrin ge syringe 100 mL 1 09/19/2020 documented in this encounter Care Teams Federal Mediation Commissioner Relationship Specialty Start Date End Date Clara Stanley PA [address] [place] [address] PCP - General Nurse Practitioner 04/05/19 Jasper Canchola MD [address] [place] [address] Surgeon Thoracic Surgery 05/11/19 Alexis Lopez MD [address] [address] Fund Raiser Pulmonary Disease 05/11/19 Kip Del Rio MD [address] [facility] [address] [place] [address] Medical Oncologist/Boiler Water Tester Hematology and Oncology 05/11/19 Jacob Flynn MD [address] [facility] [address] [place] [address] Radiation Oncologist Radiation Oncology 05/25/19 documented as of this encounter
--- OUTSIDE RECORDS SUMMARY | 2024-03-02 03:46 | XMS_ITS | Encounter Summary ---
Author Organization [facility] Address [address] [place] [address] Phone Care Team Providers Care Communication Consultant Name Role Phone Clara Stanley Primary Care Provider + Jasper Canchola MD Unavailable Alexis Lopez MD Unavailable [phone] Kip Del Rio MD Unavailable [phone] Jacob Flynn MD Unavailable Reason for Referral * Diagnostic Imaging (Routine) - Closed Specialty Diagnoses / Procedures Referred By Erik galdamez Referred To Contact Radiology Diagnoses Lung nodule Procedures CT Chest W Contrast Stephanie Bautista NP Phone: tel: fax: [address] [address] Referral ID Status Reason Start Date Expiration Date Visits Re quested Visits Authorized [id number] Closed 03/02/2020 08/31/2020 1 1 Encounter Details Date Type Department Care Team (Late st Contact Info) Description 09/23/2019 9:30 AM CDT Office Visit [facility] Surgery [facility] 8th [place] [address] [place] [address] Jasper Canchola MD [address] [facility] [id number] [place] [address] Lung nodule (Primary Dx) Social History Tobacco Use Types Packs/Day Years Used Date Smoking Tobacco: Never Smokeless Tobacco: Never Alcohol Use Standard Drinks/Week Comments Yes 2 (1 standard drink = 0.6 oz pur e alcohol) Sex and Gender Information Value Date Recorded Sex Assigned at Not on file 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 Gender Identity Not on file Sexual Orientation Straight 09/22/2019 8: 21 PM CDT documented as of this encounter Last Filed Vital Signs Vital Sign Reading Time Taken Comments Blood Pressure 133/78 09/23/2019 9:15 AM CDT Pulse 82 09/23/2019 9:15 AM CDT Temperature 36.6 ??C (97.9 ??F) 09/23/2019 9:15 AM CD T Respiratory Rate 20 09/23/2019 9:15 AM CDT Oxygen Saturation 100% 09/23/2019 9:15 AM CDT Inhaled Oxygen Concentration - - Weight 150.1 kg (331 lb) 09/23/2019 9:15 AM CDT Height 190.5 cm (6' 3 ) 09/23/2019 9:15 AM CDT Body Mass Index 41.37 09/23/2019 9:15 AM CDT documented in this encounter Progress Notes * Jasper Canchola MD - 09/23/2019 9:30 AM CDT [facility] Thoracic Surgery Note 09/26/2019 KALPANA Lema 1965 Dear KALPANA Lema: I was pleased to see Kwaku Kulkarni in follow-up on September 23, 2019. 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 We believe that the patient underwent a complete resection. He made a uneventful postoperative recovery. However he did have a persistent cough which we evaluated bybronchoscopy several weeks ago. This demonstrated no significant findings nor obvious explanation for the cough. As it turns out his cough has resolved and he appears to be doing well. The patient was also evaluated by our medical oncology service who concluded that there was no role for adjuvant th erapy. The patient underwent a routine surveillance CT scan on September 22. This demonstrates no evidence of recurrence his lung ashraf are clear. He does have some pleural thickening and scar at the right basewhich one would expect following a right lower lobectomy. We have reassured the patient and asked him to return for a surveillance CT scan in 6 months. Thank you very much. Yours sincerely, G Noah Canchola MD Ccu Nurse completed by using [employer] Direct speaking software, therefore, transcriptionvariances may occur. documented in this encounter Plan of Treatment Not on file documented as of this encounter Results * CT Chest W Contrast (03/28/2020 3:11 PM COSMETICS 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) Anatomical Region Laterality Modality Body N/A Computed Tomogra phy 03/28/2020 3:23 PM COSMETICS 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 Impressions 03/28/2020 3:23 PM COSMETICS 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 Postoperative changes of a right lower lobectomy with a small amount of pleural fluid and pleural thickening. 2 tiny right lung and one a tiny left lung pulmonary nodule, all of which are stable. Electronically signed by: Claudia Darling M.D. Narrative 03/28/2020 3:[address] 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 CT chest with intravenous contrast CLINICAL HISTORY: [...] signed by: Claudia Darling M.D. Stephanie Bautista TOOL ANALYST IM CT PROCEDURES Final Result documented in this encounter Visit Diagnoses Diagnosis Lung nodule- Primary Other diseases of lung, not elsewhere classified Lung nodule Other diseases of lung, not elsewhere classified documented in this encounter Historical Medications * This list may reflect changes made after this encounter. gabapentin (NEURONTIN) 300 mg capsule Take 300 mg by mouth 3 (three) times a day 09/05/2019 12/02/2019 added in this encounter Care Teams Communication Consultant Relationship Specialty Start Date End Date Clara Stanley PA [address] [place] [address] PCP - General Nurse Practitioner 04/05/19 Jasper Canchola MD [address] [place] [address] Surgeon Thoracic Surgery 05/11/19 Alexis Lopez MD [address] [facility] [address] [address] Health And Wellness Coordinator Pulmonary Disease 05/11/19 Kip Del Rio MD [address] [facility] [address] [place], [place] [id number] Medical Oncologist/Dry Cleaning Checker Hematology and Oncology 05/11/19 Jacob Flynn MD [address] [facility] [address] [place], [place] [id number] Radiation Oncologist Radiation Oncology 05/25/19 documented as of this encounter
--- OUTSIDE RECORDS SUMMARY | 2024-03-02 03:46 | XMS_ITS | Encounter Summary ---
Author Organization [facility] Address [address] [place] [address] Phone Care Team Providers Care Soap Chipper Name Role Phone Clara Stanley Primary Care Provider + Jasper Canchola MD Unavailable Alexis Lopez MD Unavailable Kip Del Rio MD Unavailable Jacob Flynn MD Unavailable Encounter Details Date Type Department Care Team (Late st Contact Info) Description 02/07/2020 Telephone [facility] Oncology [address] [facility] 7th [place] [address] [place] [address] Yesica Montelongo CMA Social History Tobacco Use Types Packs/Day Years Used Date Smoking Tobacco: Never Smokeless Tobacco: Never Alcohol Use Standard Drinks/Week Comments Yes 2 (1 standard drink = 0.6 oz pur e alcohol) Sex and Gender Information Value Date Recorded Sex Assigned at Not on file 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 I was not able to get a hold of the patient but spoke with the who signed and returned to me and I faxed it to [employer] fax# [phone] ET CUTTER documented in this encounter Plan of Treatment Not on file documented as of this encounter Visit Diagnoses Not on filedocumented in this encounter Care Teams Soap Chipper Relationship Specialty Start Date End Date Clara Stanley PA [address] [place] [address] PCP - General Nurse Practitioner 04/05/19 Jasper Canchola MD [address] [place] [address] Surgeon Thoracic Surgery 05/11/19 Alexis Lopez MD [address] [address] Raisin Separator Operator Pulmonary Disease 05/11/19 Kip Del Rio MD [address] [facility] [address] [place] [address] Medical Oncologist/Charger Operator Helper Hematology and Oncology 05/11/19 Jacob Flynn MD [address] [facility] [address] [place] [address] Radiation Oncologist Radiation Oncology 05/25/19 documented as of this encounter
--- OUTSIDE RECORDS SUMMARY | 2024-03-02 03:46 | XMS_ITS | Encounter Summary ---
Author Organization [facility] Address [address] [facility] [address] [place] [address] Care Team Providers Care S Iron Worker Name Role Phone Clara Stanley Primary Care Provider + Jasper Canchola MD Unavailable Alexis Lopez MD Unavailable [phone] Kip Del Rio MD Unavailable Jacob Flynn MD Unavailable [phone] Encounter Details Date Type Department Care Team (Late st Contact Info) Description 08/17/2019 Telephone [facility] Pulmonology [address] [facility] [address] [place] [address] Alexis Lopez MD [address] [facility] [address] [place] [address] Social History Tobacco Use Types Packs/Day Years Used Date Smoking Tobacco: Never Smokeless Tobacco: Never Alcohol Use Standard Drinks/Week Comments Yes 2 (1 standard drink = 0.6 oz pur e alcohol) Sex and Gender Information Value Date Recorded Sex Assigned at Not on file 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 He is aware of COVID Testing. documented in this encounter Plan of Treatment Not on file documented as of this encounter Visit Diagnoses Not on filedocumented in this encounter Care Teams S Iron Worker Relationship Specialty Start Date End Date Clara Stanley PA [address] [place] [address] PCP - General Nurse Practitioner 04/05/19 Jasper Canchola MD [address] [place] [address] Surgeon Thoracic Surgery 05/11/19 Alexis Lopez MD [address] [address] Group Teacher Pulmonary Disease 05/11/19 Kip Del Rio MD [address] [facility] [address] [place] [address] Medical Oncologist/Trade Manager Hematology and Oncology 05/11/19 Jacob Flynn MD [address] [facility] [address] [place] [address] Radiation Oncologist Radiation Oncology 05/25/19 documented as of this encounter
--- OUTSIDE RECORDS SUMMARY | 2024-03-02 03:46 | XMS_ITS | Encounter Summary ---
Author Organization [facility] Address [address] [facility] [address] [place] [address] Phone Care Team Providers Care Professor Of Communication Arts Name Role Phone Clara Stanley Primary Care Provider + Jasper Canchola MD Unavailable [phone] Alexis Lopez MD Unavailable [phone] iKp Del Rio MD Unavailable [phone] Jacob Flynn MD Unavailable Reason for Visit * Consultation (Routine) - Closed Specialty Diagnoses / Procedures Referred By Erik [email or web address] Referred To Contact Cardiothoracic Surgery Diagnoses Lung nodule Clara Stanley PA [address] [place] [address] Phone: tel: fax: Jasper Canchola MD [address] [facility] [id number] [place] [address] Phone: tel: fax: Referral ID Status Reason Start Date Expiration Date V isits Requested Visits Authorized [id number] Closed Specialty Services Required 03/12/2020 04/11/2021 99 99 Encounter Details Date Type Department Care Team (Latest Contact Info) Description 09/19/2020 3:00 PM CDT Office Visit [facility] Surgery [facility] 8th [place] [address] [place] [address] Jasper Canchola MD [id number] [place] [address] High grade neuroendocrine carcinoma (CMS/HCC) (Primary Dx) Social History Tobacco Use Types Packs/Day Years Used Date Smoking Tobacco: Never Smokeless Tobacco: Never Alcohol Use Standard Drinks/Week Comments Yes 2 (1 standard drink = 0.6 oz pur e alcohol) Sex and Gender Information Value Date Recorded Sex Assigned at Not on file 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 Gender Identity Not on file Sexual Orientation Straight 09/22/2019 8: 21 PM CDT documented as of this encounter Last Filed Vital Signs Vital Sign Reading Time Taken Comments Blood Pressure 144/86 09/19/2020 2:36 PM CDT Pulse 75 09/19/2020 2:36 PM CDT Temperature 36.3 ??C (97.3 ??F) 09/19/2020 2:36 PM CD T Respiratory Rate 20 09/19/2020 2:36 PM CDT Oxygen Saturation 98% 09/19/2020 2:36 PM CDT room air Inhaled Oxygen Concentration - - Weight 162.8 kg (359 lb) 09/19/2020 2:36 PM CDT Height 190.5 cm (6' 3 ) 09/19/2020 2:36 PM CDT Body Mass Index 44.87 09/19/2020 2:36 PM CDT documented in this encounter Progress Notes * Jasper Canchola MD - 09/19/2020 3:00 PM CDT [facility] Thoracic Surgery Note 09/24/2020 KALPANA Lema 1965 Dear KALPANA Lema: I was pleased to see Kwaku Kulkarni in follow-up on September 19, 2020. 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 Patient is doing well. He underwent a surveillance CT scan on September 19. This demonstrates some enlargement of right paratracheal lymph nodes in comparison to their appearance 6 months ago. This might well represent current marcus metastatic disease. Unfortunately there really is no effective chemotherapy or radiation for these tumors. After discussing his situation with his oncology team, we have reassured the patient and asked him to return fora routine surveillance CT scan in 4 months. Thank you very much. Yours sincerely, Sary Canchola MD Centerless Grinding Machine Adjuster completed by using [employer] Direct speaking software, therefore, transcriptionvariances may occur. documented in this encounter Plan of Treatment Not on file documented as of this encounter Visit Diagnoses Diagnosis High grade neuroendocrine carcinoma (HCC)- Primary documented in this encounter Care Teams Professor Of Communication Arts Relationship Specialty Start Date End Date Clara Stanley PA [address] [place] [address] PCP - General Nurse Practitioner 04/05/19 Jasper Canchola MD [address] [place] [address] Surgeon Thoracic Surgery 05/11/19 Alexis Lopez MD [address] [address] Poultice Machine Operator Pulmonary Disease 05/11/19 Kip Del Rio MD [address] [facility] [address] [place] [address] Medical Oncologist/Epic [facility] Hematology and Oncology 05/11/19 Jacob Flynn MD [address] [facility] [address] [place] [address] Radiation Oncologist Radiation Oncology 05/25/19 documented as of this encounter
--- OUTSIDE RECORDS SUMMARY | 2024-03-02 03:46 | XMS_ITS | Encounter Summary ---
Author Organization [facility] Address [address] [facility] [address] [place] [address] Care Team Providers Care Medical Registrar Name Role Phone Clara Stanley Primary Care Provider + Jasper Canchola MD Unavailable Alexis Lopez MD Unavailable [phone] Kip Del Rio MD Unavailable Jacob Flynn MD Unavailable Reason for Visit * Reason Comments Follow-up Encounter Details Date Type Department Care Team (Late st Contact Info) Description 12/02/2019 9:30 AM CDT Office Visit [facility] Pulmonology [address] [facility] [address] [place] [address] [place] [address] [place] [address] [address] [place] [address] Malignant neoplasm of lower lobe of right lung (CMS/HCC) (Primary Dx); LEONOR (obstructive sleep apnea); Mild intermittent asthma without complication Social History Tobacco Use Types Packs/Day Years Used Date Smoking Tobacco: Never Smokeless Tobacco: Never Alcohol Use Standard Drinks/Week Comments Yes 2 (1 standard drink = 0.6 oz pur e alcohol) Sex and Gender Information Value Date Recorded Sex Assigned at Not on file 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 Gender Identity Not on file Sexual Orientation Straight 09/22/2019 8: 21 PM CDT documented as of this encounter Last Filed Vital Signs Vital Sign Reading Time Taken Comments Blood Pressure 115/80 12/02/2019 9:24 AM CDT Pulse 86 12/02/2019 9:24 AM CDT Temperature 36.5 ??C (97.7 ??F) 12/02/2019 9:24 AM CD T Respiratory Rate 18 12/02/2019 9:24 AM CDT Oxygen Saturation 99% 12/02/2019 9:24 AM CDT Inhaled Oxygen Concentration - - Weight 147.4 kg (325 lb) 12/02/2019 9:24 AM CDT Height 190.5 cm (6' 3 ) 12/02/2019 9:24 AM CDT Body Mass Index 40.62 12/02/2019 9:24 AM CDT documented in this encounter Progress Notes * Alexis Lopez MD - 12/02/2019 9:30 AM CDT Progress Note Patient: Kwaku Kulkarni ( - 1965) is a 54 y.o. male. Visit Date: 12/02/2019 Chief Complaint Patient presents with ??? Follow-up History of Present Illness: The patient is a 54-year-old male with a cough variant of asthma and LEONOR that returns for follow-up. He did have his chest CT following his surgery and the last chest CT was in September and is being followed by Dr. Canchola at [facility]. He had a high-grade neuroendocrine carcinoma resected. He states that his breathing is comfortable with Symbicort, Pepcid and Flonase. He just received his auto titrating CPAP unit and he will start using it tonight. He had an in-home sleep study in late October 2019 and the AHI was 18.4 and he did desaturate as low was 84%. Past Medical History: Past Medical History: Diagnosis [...] Medication Sig Dispense Refill ??? acetaZOLAMIDE ER (DIAMOX SEQUAL) 500 mg [...] 20 mg by mouth every morning ??? oxyCODONE (ROXICODONE) 10 mg tablet Take 1-1.5 tablets (10-15 mg total) by mouth every 3 (three) hours as needed for pain (Patient not taking: Reported on 08/17/2019) 42 tablet 0 No current facility-administered medications for this visit. [...] on phone: None Gets together: None Attends mandaen service: None Active member of club or [...] for dizziness and light-headedness. Physical Exam: Vitals: 12/02/19 0924 BP: 115/80 Pulse: 86 Resp: 18 Temp: 36.5 ??C (97.7 ??F) SpO2: 99% Weight: (!) 147.4 kg (325 lb) Height: 190.5 cm (6' 3 ) [...] place, and time. Data Reviewed Images: Chest CT 09/23/2019 IMPRESSION: 1. Interval right lower lobectomy with small loculated pleural effusion with associated pleural thickening, most likely representing evolving hematoma/hemothorax in the setting of recent surgery. ?? 2. Pulmonary nodules in the peripheral right upper lobe along the right minor fissure, most likely represent subpleural/fissural lymph nodes. Recommend attention on follow-up imaging. ?? 3. 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 ?? Assessment and Plan: Diagnoses and all orders for this visit: Malignant neoplasm of lower lobe of right lung (CMS/HCC) (Primary) Comments: The patient has a high-grade neuroendocrine carcinoma. He is followed at [facility] by Dr. Canchola. His next CT is scheduled for March 2020. LEONOR (obstructive sleep apnea) Assessment & Plan: The patient just received his auto titrating CPAP unit with a range of 5-20 cm water pressure. His DME is [facility]. Mild intermittent asthma without complication Assessment & Plan: The patient has a cough variant of asthma. He will continue with the Pepcid, Flonase and Symbicort. Rendering Provider & Department: Alexis Lopez MD documented in this encounter Miscellaneous Notes * Assessment & Plan Note - Alexis Lopez MD - 12/02/2019 9:49 AM CDT Associated Problem(s): Mild intermittent asthma without complication The patient has a cough variant of asthma. He will continue with the Pepcid, Flonase and Symbicort. * Assessment & Plan Note - Alexis Lopez MD - 12/02/2019 9:49 AM CDT Associated Problem(s): LEONOR (obstructive sleep apnea) The patient just received his auto titrating CPAP unit with a range of 5-20 cm water pressure. His DME is [facility]. documented in this encounter Plan of Treatment Not on file documented as of this encounter Visit Diagnoses Diagnosis Malignant neoplasm of lower lobe of right lung (HCC)- Primary LEONOR (obstructive sleep apnea) Obstructive sleep apnea (adult) (pediatric) Mild intermittent asthma without complication documented in this encounter Discontinued Medications Medication Sig Discontinue Reason Start Date End Da te acetaminophen (TYLENOL) 325 mg tabletIndications:Fev er,Pain Take 2 tablets (650 mg total) by mouth every 4 (four) hours as needed for pain This medication can be found over the counter, please follow the instructions listed on the packaging. 05/30/2019 12/02/2019 polyethylene glycol (MIRALAX) 17 gram packetIndications:con stipation Take 1 packet (17 g total) by mouth daily This medication can be found over the counter, please follow the instructions listed on the packaging. 05/31/2019 12/02/2019 benzonatate (TESSALON) 100 mg capsuleIndications:Co ugh Take 1 capsule (100 mg total) by mouth 3 (three) times a day as needed for cough 06/15/2019 12/02/2019 albuterol HFA (PROVENTIL HFA,VENTOLIN HFA,PROAIR HFA) 90 mcg/actuation inhaler INL 2 PFS PO Q 4 H PRN 07/27/2019 gabapentin (NEURONTIN) 300 mg capsule Take 300 mg by mouth 3 (three) times a day 09/05/2019 12/02/2019 documented as of this encounter Care Teams Medical Registrar Relationship Specialty Start Date End Date Clara Stanley PA [address] [place] [address] PCP - General Nurse Practitioner 04/05/19 [place] [address] [place] [address] Surgeon Thoracic Surgery 05/11/19 [place] [address] [place] [address] DR GALVIN [address] [place] [address] Reactor Operator Pulmonary Disease 05/11/19 Kip Del Rio MD [address] [facility] [address] [place] [address] Medical Oncologist/Film Casting Operator Hematology and Oncology 05/11/19 Jacob Flynn MD [address] [facility] [address] [place] [address] Radiation Oncologist Radiation Oncology 05/25/19 documented as of this encounter
--- OUTSIDE RECORDS SUMMARY | 2024-03-02 03:46 | XMS_ITS | Encounter Summary ---
Author Organization [facility] Address [address] [place] [address] Care Team Providers Care Showroom Executive Director Name Role Phone Clara Stanley Primary Care Provider + Jasper Canchola MD Unavailable Alexis Lopez MD Unavailable [phone] Kip Del Rio MD Unavailable Jacob Flynn MD Unavailable Encounter Details Date Type Department Care Team (Late st Contact Info) Description 08/22/2019 12:42 PM CDT Hospital Encounter [facility]IM Alexis Lopez MD [address] [facility] [address] [address] Social History Tobacco Use Types Packs/Day Years Used Date Smoking Tobacco: Never Smokeless Tobacco: Never Alcohol Use Standard Drinks/Week Comments Yes 2 (1 standard drink = 0.6 oz pur e alcohol) Sex and Gender Information Value Date Recorded Sex Assigned at Not on file 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 us Historical Provider Final Res ult * COVID-19 Coronavirus RNA (08/22/2019 12:43 PM CDT) COVID-19 Coronavirus RNA NOT DETECTED [facility] Comment: A negative result does not rule out the possibility of COVID-19 and should not be used as the sole basis for patient management decisions. Coronavirus (COVID-19) Interp SEE COMMENT [facility] Coronavirus (COVID-19) Results called to TNP [facility] Misc Performing Lab [facility] 08/22/2019 12:4 3 PM CDT 08/23/2019 12:17 AM CDT Narrative Resulting Agency Comment CLI Alexis Lopez MD LAB MICROBIOLOGY - GENERA L ORDERABLES Final Result [facility] [address] [place] [address], [facility] [phone] documented in this encounter Visit Diagnoses Not on filedocumented in this encounter Care Teams Showroom Executive Director Relationship Specialty Start Date End Date Calra Stanley PA [address] [place] [address] PCP - General Nurse Practitioner 04/05/19 Jasper Canchola MD [address] [place] [address] Surgeon Thoracic Surgery 05/11/19 Alexis Lopez MD [address] [address] Deboning Team Leader Pulmonary Disease 05/11/19 Kip Del Rio MD [address] [facility] [address] [place], [place] [id number] Medical Oncologist/Distribution Center Supervisor Hematology and Oncology 05/11/19 Jacob Flynn MD [address] [facility] [address] [place] [address] Radiation Oncologist Radiation Oncology 05/25/19 documented as of this encounter
--- OUTSIDE RECORDS SUMMARY | 2024-03-02 03:47 | XMS_ITS | Encounter Summary ---
Author Organization [facility] Address [address] [facility] [address] [place] [address] Phone Care Team Providers Care Systems Consultant Name Role Phone Clara Stanley Primary Care Provider + Jasper Canchola MD Unavailable Alexis Lopez MD Unavailable Kip Del Rio MD Unavailable Jacob Flynn MD Unavailable [phone] Encounter Details Date Type Department Care Team (Late st Contact Info) Description 06/16/2019 Telephone [facility] Surgery [address] 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 No / Unsure 05/26/2019 7:38 AM CDT documented as of this encounter Miscellaneous Notes * Telephone Encounter - Stephanie Bautista NP - 06/16/2019 1:23 PM CDT I spoke with the patient. Discussed CXR in 4 weeks at [facility]. He understands the order has been placed and he needs to call [facility] to get the CXR scheduled. VENU Zapata- ----- Message from Japser Canchola MD sent at 06/15/2019 4:34 PM CDT ----- Regarding: RE: Appointment/CT I agree with your note. The CXR shows a subpulmonic space and middle lobe partially expanded. Both are common findings following the surgery he had. He needs a repeat CXR in 4 weeks ----- Message ----- From: Stephanie Bautista NP Sent: 06/15/2019 2:43 PM CDT To: Stephanie Bautista NP, Afia Hutton, # Subject: Appointment/CT [facility]- please take a look at his [facility] CXR from yesterday. Also, please review my note from today. Let me know if you feel differently. Needs ROV with contrast CT chest in 4 months. Thanks!! documented in this encounter Plan of Treatment Not on file documented as of this encounter Visit Diagnoses Not on filedocumented in this encounter Care Teams Systems Consultant Relationship Specialty Start Date End Date Clara Stanley PA [address] [place] [address] PCP - General Nurse Practitioner 04/05/19 Jasper Canchola MD [address] [place] [address] Surgeon Thoracic Surgery 05/11/19 Alexis Lopez MD [address] [facility] [address] [address] Principal Database Developer Pulmonary Disease 05/11/19 Kip Del Rio MD [address] [facility] [address] [place], [place] [id number] Medical Oncologist/Electrical Engineer Hematology and Oncology 05/11/19 Jacob Flynn MD [address] [facility] [address] [place], [place] [id number] Radiation Oncologist Radiation Oncology 05/25/19 documented as of this encounter
--- OUTSIDE RECORDS SUMMARY | 2024-03-02 03:47 | XMS_ITS | Encounter Summary ---
Author Organization [facility] Address [address] [place] [address] Phone Care Team Providers Care Administrative Supervisor Name Role Phone Clara Stanley Primary Care Provider + Jasper Canchola MD Unavailable Alexis Lopez MD Unavailable Kip Del Rio MD Unavailable [phone] Jacob Flynn MD Unavailable [phone] Encounter Details Date Type Department Care Team (Late st Contact Info) Description 06/28/2019 Orders Only [facility] [address] [facility] Advanced Medicine 8th [place] [address] [place] [id number] tSephanie Bautista, MAINTAINABILITY ENGINEER [address] [facility] [id number] [place] [address] Pneumonitis (Primary Dx) Social History Tobacco Use Types Packs/Day Years Used Date Smoking Tobacco: Never Smokeless Tobacco: Never Alcohol Use Standard Drinks/Week Comments Yes 0 (1 standard drink = 0.6 oz pur e alcohol) social Sex and Gender Information Value Date Recorded Sex Assigned at Not on file 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 Chest radiograph reviewed and suspect possible pneumonitis. Patient does not have any sick symptoms. He has Tessalon Perles that are notworking. His cough is intermittent. He is bringing up some mucus. He describes it is anderson and sticky. No hemoptysis. We will try some Augmentin as Levaquin was not covered by his insurance. Augmentinwas called to his pharmacy for 10 days. He was instructed on its use. He is instructed to call if no improvement in his symptoms. Pound Attendant completed using [employer] Direct speaking software, therefore, tape librarian variances may occur. documented in this encounter Plan of Treatment Not on file documented as of this encounter Visit Diagnoses Diagnosis Pneumonitis- Primary Pneumonia, organism unspecified documented in this encounter Care Teams Administrative Supervisor Relationship Specialty Start Date End Date Clara Stanley PA [address] [place] [address] PCP - General Nurse Practitioner 04/05/19 Jasper Canchola MD [address] [place] [address] Surgeon Thoracic Surgery 05/11/19 Alexis Lopez MD [address] [facility] [address] [address] Poured Pipe Maker Pulmonary Disease 05/11/19 Kip Del Rio MD [address] [facility] [address] [place] [address] Medical Oncologist/Medical Record Administrator Hematology and Oncology 05/11/19 Jacob Flynn MD [address] [facility] [address] [place] [address] Radiation Oncologist Radiation Oncology 05/25/19 documented as of this encounter
--- OUTSIDE RECORDS SUMMARY | 2024-03-02 03:47 | XMS_ITS | Encounter Summary ---
Author Organization [facility] Address [address] [place] [address] Phone Care Team Providers Care Fight Manager Name Role Phone Clara Stanley Primary Care Provider + Jasper Canchola MD Unavailable Alexis Lopez MD Unavailable [phone] Kip Del Rio MD Unavailable Jacob Flynn MD Unavailable Encounter Details Date Type Department Care Team (Late st Contact Info) Description 06/16/2019 Orders Only [facility] [address] [facility] Advanced Medicine 8th [place] [address] [place] [address] Judy Frias RMA Lung nodule (Primary Dx) Social History Tobacco Use Types Packs/Day Years Used Date Smoking Tobacco: Never Smokeless Tobacco: Never Alcohol Use Standard Drinks/Week Comments Yes 0 (1 standard drink = 0.6 oz pur e alcohol) social Sex and Gender Information Value Date Recorded Sex Assigned at Not on file 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 Gender Identity Not on file Sexual Orientation [...] not elsewhere classified documented in this encounter Care Teams Fight Manager Relationship Specialty Start Date End Date Clara Stanley PA [address] [place] [address] PCP - General Nurse Practitioner 04/05/19 Jasper Canchola MD [address] [place] [address] Surgeon Thoracic Surgery 05/11/19 Alexis Lopez MD [address] [address] Data Developer Pulmonary Disease 05/11/19 Kip Del Rio MD [address] [facility] [address] [place] [address] Medical Oncologist/Heel Trimmer Hematology and Oncology 05/11/19 Jacob Flynn MD [address] [facility] [address] [place] [address] Radiation Oncologist Radiation Oncology 05/25/19 documented as of this encounter
--- OUTSIDE RECORDS SUMMARY | 2024-03-02 03:47 | XMS_ITS | Encounter Summary ---
Author Organization [facility] Healthcare Address [address] [place] [address] Care Team Providers Care Procurement Internship Name Role Phone Clara Stanley Primary Care Provider + Jasper Canchola MD Unavailable Alexis Lopez MD Unavailable [phone] Kip Del Rio MD Unavailable Jacob Flynn MD Unavailable Encounter Details Date Type Department Care Team (Latest Contact Info) Description 06/15/2019 7:42 AM CDT - 06/15/2019 11:59 PM CDT Hospital Encounter 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 Gender Identity Not on file Sexual Orientation [...] mouth 2 (two) times a day 1 benzonatate (TESSALON) 100 mg capsuleIndication s:Cough Take 1 capsule (100 mg total) by mouth 3 (three) times a day as needed for cough 90 capsule 1 06/15/2019 0 cetirizine (ZyrTEC) 10 mg tabletIndications :Seasonal Allergic Rhinitis Take 10 mg by mouth every morning 2 cyclobenzaprine (FLEXERIL) 10 mg tablet Take 10 mg by mouth 3 (three) times a day as needed 05/12/2018 0 fluticasone propionate (FLONASE) 50 mcg/actuation nasal spray [...] Name Priority Date/Time Associated Diagnosis Comments XR TRANSFER OF OUTSIDE FILMS Routine 06/15/2019 7:42 AM CDT Diagnosis unknown documented in this encounter Results * XR Outside Reference (06/15/2019 7:42 AM CDT) Impressions [facility] - 06/15/2019 7:42 AM CDT These images are for Reference purposes only and have not been reviewed by [facility]iology. ??There will be no report generated by a [facility] Radiologist. Narrative [facility] - 06/15/2019 7:42 AM CDT EXAMINATION: ??Images For Reference Purposes Only us Jasper Canchola MD IMG XR PROCEDURES Final R esult [facility] documented in this encounter Visit Diagnoses Not on filedocumented in this encounter Care Teams Procurement Internship Relationship Specialty Start Date End Date Clara Stanley PA [address] [place] [address] PCP - General Nurse Practitioner 04/05/19 Jasper Canchola MD [address] [place] [address] Surgeon Thoracic Surgery 05/11/19 Alexis Lopez MD [address] [facility] [address] [address] Hospitalist Program Director Pulmonary Disease 05/11/19 Kip Del Rio MD [address] [facility] [address] [place] [address] Medical Oncologist/Field Enumerator Hematology and Oncology 05/11/19 Jacob Flynn MD [address] [facility] [address] [place] [address] Radiation Oncologist Radiation Oncology 05/25/19 documented as of this encounter
--- OUTSIDE RECORDS SUMMARY | 2024-03-02 03:47 | XMS_ITS | Encounter Summary ---
Author Organization [facility] Care Team Providers Care Sidewalk Repairer Name Role Phone Clara Stanley Primary Care Provider + Jasper Canchola MD Unavailable Alexis Lopez MD Unavailable [phone] Kip Del Rio MD Unavailable Jacob Flynn MD Unavailable Encounter Details Date Type Department Care Team (Latest Contact Info) Description 05/26/2019 Travel Social History Tobacco Use Types Packs/Day Years Used Date Smoking Tobacco: Never Smokeless Tobacco: Never Alcohol Use Standard Drinks/Week Comments Yes 0 (1 standard drink = 0.6 oz pur e alcohol) social Sex and Gender Information Value Date Recorded Sex Assigned at Not on file 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 Gender Identity Not on file Sexual Orientation [...] on filedocumented in this encounter Care Teams Sidewalk Repairer Relationship Specialty Start Date End Date Clara Stanley PA [address] [place] [address] PCP - General Nurse Practitioner 04/05/19 Jasper Canchola MD [address] [place] [id number] Surgeon Thoracic Surgery 05/11/19 Alexis Lopez MD [address] [address] Helicopter Technician Pulmonary Disease 05/11/19 Kip Del Rio MD [address] [facility] [address] [place] [address] Medical Oncologist/Garde Manger Hematology and Oncology 05/11/19 Jacob Flynn MD [address] [facility] [address] [place] [address] Radiation Oncologist Radiation Oncology 05/25/19 documented as of this encounter
--- OUTSIDE RECORDS SUMMARY | 2024-03-02 03:47 | XMS_ITS | Encounter Summary ---
Author Organization [facility] Address [address] [place] [address] Care Team Providers Care Oracle Forms Developer Name Role Phone Clara Stanley Primary Care Provider + Jasper Canchola MD Unavailable Alexis Lopez MD Unavailable Kip Del Rio MD Unavailable Jacob Flynn MD Unavailable Encounter Details Date Type Department Care Team (Late st Contact Info) Description 05/30/2019 10:40 AM CDT - 05/30/2019 11:30 AM CDT Surgery [facility] Operating Room [address] [place] [address] Jasper Canchola MD [id number] [place] [address] BRONCHOSCOPY FLEXIBLE Surgery Details Date/Time Status Location OR Service Patient Class Case Class Case Type Trauma Case? 05/30/2019 10:40 AM Posted [facility] OR POD 3 304 Cardiothoracic Inpatient Elective Panel 1 Procedure LRB Anes Op Region Wound Class Comments BRONCHOSCOPY FLEXIBLE N/A General Bronchus Class II - Clean Contaminated Surgeon Surgeon Role Service Panel Jasper Canchola MD Primary Cardiothoracic 1 Irina Hall MD PhD Resident - Observing 1 Amy Chun MD Resident - Assisting [facility] Surgery 1 documented in this encounter Social History Tobacco Use Types Packs/Day Years Used Date Smoking Tobacco: Never Smokeless Tobacco: Never Alcohol Use Standard Drinks/Week Comments Yes 0 (1 standard drink = 0.6 oz pur e alcohol) social Sex and Gender Information Value Date Recorded Sex Assigned at Not on file Legal Sex 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 No / Unsure 05/26/2019 7:38 AM CDT documented as of this encounter Last Filed Vital Signs Vital Sign Reading Time Taken Comments Blood Pressure 131/75 05/30/2019 11:30 AM CDT Pulse 90 05/30/2019 11:30 AM CDT Temperature 36.4 ??C (97.5 ??F) 05/30/2019 10:40 AM C DT Respiratory Rate 13 05/30/2019 11:30 AM CDT Oxygen Saturation 96% 05/30/2019 11:30 AM CDT Inhaled Oxygen Concentration - - Weight 154.2 kg (340 lb) 05/26/2019 9:00 PM CDT Height 190.5 cm (6' 3 ) 05/26/2019 9:00 PM CDT Body Mass Index 42.5 05/26/2019 9:00 PM CDT documented in this encounter Discharge Summaries * Keke Pratt NP - 05/30/2019 1:08 PM CDT Discharge Summary Patient ID: Mp Kulkarni 54 y.o. 1965 Admit date: 05/26/2019 Discharge date: 05/30/2019 Admitting Physician: Jasper Canchola MD Admission Diagnoses: malignant neoplasm of lower lobe of right lung Discharged Condition: good HPI: This patient had presented with a lobulated lesion in the medial aspect of his right lower lobe. This was associated with some enlargement of mediastinal lymph nodes. A PET scan demonstrated intense uptake in the right lower lobe lesion as well as in subcarinal lymph nodes. 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 We did not think that this fit with the clinical presentation, and therefore approximately 5 days prior to this procedure the patient underwentcervical mediastinoscopy. Multiple biopsies were obtained from subcarinal lymph node. 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 We, therefore, recommended that thepatient undergo a right thoracotomy, right lower lobectomy, and mediastinal lymph node dissection. We anticipated that this procedure would be somewhat complicated by the presence of calcified mediastinal lymph nodes, the patient's morbid obesity, and the recent dissection from cervical mediastinoscopy. Hospital Course: Patient underwent right thoracotomy, right lower lobectomy, mediastinal lymph nodedissection, and right main bronchoplasty, plus modifier 22 on 05/26/[address] Canchola, and was admitted to Thoracic Surgery after stabilization in the PACU. Plan of care included hemodynamic monitoring, pain management, chest tube management, and physical therapy evaluation and treatment. Hospital course was remarkable for planned, post-op bronch that was noted for a healthy appearing anastomosis. Chest tube was removed without complication . Post-pull CXR was noted for no pneumothorax. On the day of discharge, the patient was ambulating with minimal assistance; tolerating PO diet with return of bowel function; surgical incisions were well approximated and the pain was well controlled on oral pain medications. The patient was deemed to be medically stable for discharge from the hospital and was in agreement with the plan to discharge home. Discharge Exam: General appearance: alert, cooperative, no distress Lungs: breath sounds normal and symmetric; no rales or wheezes Heart: regular rhythm, normal S1 and S2, without murmurs, gallops or rubs Abdomen: soft without mass, non-tender, with normal bowel sounds Extremities: no clubbing, cyanosis or edema Disposition: home Home medications: Current Facility-Administered Medications: ??? acetaminophen (TYLENOL) tablet 650 mg, 650 mg, oral, Q4H PRN, 650 mg at 05/28/19 1659 ??? acetaZOLAMIDE ER (DIAMOX SEQUAL) extended release capsule 500 mg, 500 mg, oral, BID, 500 mg at 05/30/19 0804 ??? amLODIPine (NORVASC) tablet 5 mg, 5 mg, oral, Daily, 5 mg at 05/30/19 0751 ??? bupivacaine preservative free in 0.9% sodium chloride 250 mL 0.1 % (1,000 mcg/mL), , epidural, Continuous, Last Rate: 10 mL/hr at 05/30/19 0825 ??? cyclobenzaprine (FLEXERIL) tablet 10 mg, 10 mg, oral, TID, 10 mg at 05/30/19 0749 ??? enoxaparin (LOVENOX) syringe 40 mg, 40 mg, subcutaneous, Daily-2100, 40 mg at 05/28/192250 ??? gabapentin (NEURONTIN) capsule 300 mg, 300 mg, oral, Nightly, 300 mg at 05/29/192045 ??? lidocaine (LIDODERM) 5 % patch 1 patch, 1 patch, transdermal, Daily, Stopped at 05/29/192047 ??? naloxone (NARCAN) 0.4 mg/mL injection 0.04-0.4 mg, 0.04-0.4 mg, intravenous, Once PRN ??? ondansetron (ZOFRAN) injection 4 mg, 4 mg, intravenous, Q6H PRN ??? oxyCODONE (ROXICODONE) tablet 10 mg, 10 mg, oral, Q3H PRN, 10 mg at 05/30/19 1310 ??? polyethylene glycol (MIRALAX) packet 17 g, 17 g, oral, Daily, 17 g at 05/29/19 0842 ??? pravastatin (PRAVACHOL) tablet 20 mg, 20 mg, oral, QAM, 20 mg at 05/30/19 0748 ??? senna (SENOKOT) tablet 1 tablet, 1 tablet, oral, BID, 1 tablet at 05/30/19 0748 OR [DISCONTINUED] senna 1.76 mg/mL syrup 8.8 mg, 8.8 mg, feeding tube, BID ??? sodium chloride 0.9% flush 0.5-20 mL, 0.5-20 mL, intra-catheter, Q8H MERLENE, 10 mL at 05/29/19 2239 ??? sodium chloride 0.9% flush 0.5-20 mL, 0.5-20 mL, intra-catheter, PRN, 10 mL at 05/28/19 1840 Patient Instructions Your medication list START taking these medications acetaminophen 325 mg tablet Take 2 tablets (650 mg total) by mouth every 4 (four) hours as needed for pain This medication can be found over the counter, please follow the instructions listed on the packaging. Commonly known as: TYLENOL gabapentin 300 mg capsule Take 1 capsule (300 mg total) by mouth nightly for 14 days Commonly known as: NEURONTIN oxyCODONE 10 mg tablet Take 1-1.5 tablets (10-15 mg total) by mouth every 3 (three) hours as needed for pain Commonly known as: ROXICODONE polyethylene glycol 17 gram packet Take 1 packet (17 g total) by mouth daily This medication can be found over the counter, please follow the instructions listed on the packaging. Commonly known as: MIRALAX Start taking on: May 31, 2019 CONTINUE taking these medications acetaZOLAMIDE ER 500 mg capsule Commonly known as: DIAMOX SEQUAL amLODIPine 10 mg tablet Commonly known as: NORVASC cetirizine 10 mg tablet Commonly known as: ZyrTEC cyclobenzaprine 10 mg tablet Commonly known as: FLEXERIL LORazepam 0.5 mg tablet Commonly known as: ATIVAN pravastatin 20 mg tablet Commonly known as: PRAVACHOL STOP taking these medications HYDROcodone-acetaminophen 2.5-325 mg tablet Seek immediate medical attention if: * You have a fever of 101.5 F degrees or higher. * You have nausea or vomiting that does not stop. * Your wound is red, swollen, draining, or hurts. * The In-Patient Nurse Practitioner office number is . * Call 911 or go to the nearest emergency room if you have chest pain, faint, or have a hard time breathing. * You can contact the In-Patient Nurse Practitioners if you have any other, non emergent questions or concerns regarding your discharge care or instructions. The office number is . Diet: Resume regular diet Wound Care Instructions: ?? You may have a special skin glue called Dermabond over your wounds. This special glue will fall off by itself afer 7-10 days. Do not use antibacterial ointment, lotion or creams on your wounds. This may make the glue dissolve and open the wound. ?? You may have a stitch called a suture, where your chest tube was placed. This stitch and any ryan can be removed no sooner than 3 weeks after your surgery. A Home Health nurse can help with this or the stitch and ryan can be removed at your surgery follow up appointment. ?? You may shower 48 hours after your chest tube removal. Remove chest tube dressings prior to show. Use mild, unscented soap. Do not scrub or rub the site. Pat wounds dry. You can leave your chest tube site open to air; there is no need for dressing unless there is drainage. DO NOT take a bath or soak in water. ?? Your sutures and/or ryan can be removed 14 days from the day of surgery by a home health nurse or your primary care doctor. Additional Instructions: ?? Try to take less narcotic pain medication each day, Eventually you will need to completely be off this medication. ?? Do not drink alcohol or drive if taking narcotic pain medication. ?? Continue to take you laxatives as prescribed while taking narcotic pain medication unless you start to have loose stools or diarrhea. Use Dulcolax suppositories, fleet enemas or Magnesium citrate if you have constipation. These are available over the counter. Follow the instructions on the packaging. ?? Do not life objects over 10-15 pounds until your doctor says it's ok. This includes babies and pets. Do not lift, pull or strain when moving objects. ?? It is very important to stay active. Keep you activity level up. Bathe and dress yourself every day. ?? Continue to do you breathing exercises until you return to your normal activity level. Use you incentive spirometer as instructed by your nurse. It will keep your lungs open and prevent pneumonia. ?? Exercise your arms several times a day. Raise your arms over you head and bring them to the front and sides. ?? It is common to have pain for several months, but the pain should lessen after a few weeks. You may feel aching, stabbing, throbbing, tightness, pulling, sharp or shooting pain. The pain may be worse when you are active or cough. ? You may also have numbness in some parts of your chest, breast or sides. ? You can take Tylenol. Make sure the pain medication you were sent home with from the hospital does not contain Tylenol. If you were able to take Aleve, Motrin or Ibuprofen prior to surgery you canalso take this post-operatively. ? You can also try ice pack or heat on your incisions. Salonpas patches (similar to the lidocaine patches used in the hospital) are helpful and are available over the counter Outpatient Follow-Up: You will need to arrive 30 minutes prior to you appointment time for a chest x- ray. It is very important this x-ray is performed prior to your appointment, as this will determine the plan of your care. Future Appointments Date Time [facility] Department [place] 06/17/2019 9:00 AM Jasper Canchola MD THOR CAM 8B EDWARDS Cosigned by Jasper Canchola MD at 05/31/2019 10:21 AM CDT documented in this encounter Discharge Instructions * Discharge Instructions* Keke Pratt NP - 05/30/2019 2:03 PM CDT Outpatient Follow-Up: You will need to arrive 30 minutes prior to you appointment time for a chest x- ray. It is very important this x-ray is performed prior to your appointment, as this will determine the plan of your care. Seek immediate medical attention if: * You have a fever of 101.5 F degrees or higher. * You have nausea or vomiting that does not stop. * Your wound is red, swollen, draining, or hurts. * The In-Patient Nurse Practitioner office number is . * Call 911 or go to the nearest emergency room if you have chest pain, faint, or have a hard time breathing. * You can contact the In-Patient Nurse Practitioners if you have any other, non emergent questions or concerns regarding your discharge care or instructions. The office number is . Diet: Resume regular diet Wound Care Instructions: ?? You may have a stitch called a suture, where your chest tube was placed. This stitch and any ryan can be removed no sooner than 3 weeks after your surgery. A Home Health nurse can help with this or the stitch and ryan can be removed at your surgery follow up appointment. ?? You may shower 48 hours after your chest tube removal. Remove chest tube dressings prior to shower. Use mild, unscented soap. Do not scrub or rub the site. Pat wounds dry. You can leave your chesttube site open to air; there is no need for dressing unless there is drainage. DO NOT take a bath or soak in water. ?? Your sutures and/or ryan can be removed 14 days from the day of surgery by a home health nurse, your primary care doctor or at your follow up visit. Additional Instructions: ?? Try to take less narcotic pain medication each day, Eventually you will need to completely be off this medication. ?? Do not drink alcohol or drive if taking narcotic pain medication. ?? Continue to take you laxatives as prescribed while taking narcotic pain medication unless you start to have loose stools or diarrhea. Use Dulcolax suppositories, fleet enemas or Magnesium citrate if you have constipation. These are available over the counter. Follow the instructions on the packaging. ?? Do not life objects over 10-15 pounds until your doctor says it's ok. This includes babies and pets. Do not lift, pull or strain when moving objects. ?? It is very important to stay active. Keep you activity level up. Bathe and dress yourself every day. ?? Continue to do you breathing exercises until you return to your normal activity level. Use you incentive spirometer as instructed by your nurse. It will keep your lungs open and prevent pneumonia. ?? Exercise your arms several times a day. Raise your arms over you head and bring them to the front and sides. ?? It is common to have pain for several months, but the pain should lessen after a few weeks. You may feel aching, stabbing, throbbing, tightness, pulling, sharp or shooting pain. The pain may be worse when you are active or cough. ? You may also have numbness in some parts of your chest, breast or sides. ? You can take Tylenol. Make sure the pain medication you were sent home with from the hospital does not contain Tylenol. If you were able to take Aleve, Motrin or Ibuprofen prior to surgery you canalso take this post-operatively. ? You can also try ice pack or heat on your incisions. Salonpas patches (similar to the lidocaine patches used in the hospital) are helpful and are available over the counter. documented in this encounter Medications at Time [...] mouth 2 (two) times a day 1 cetirizine (ZyrTEC) 10 mg tabletIndications :Seasonal Allergic Rhinitis Take 10 mg by mouth every morning 2 cyclobenzaprine (FLEXERIL) 10 mg tablet Take 10 mg by mouth 3 (three) times a day as needed 05/12/2018 0 gabapentin (NEURONTIN) 300 mg capsule Take 1 capsule (300 mg total) by mouth nightly for 14 days 14 capsule 05/30/2019 1 LORazepam (ATIVAN) 0.5 mg tabletIndications :anxiety Take [...] 04/10/2019 4 documented as of this encounter Ordered Prescriptions Prescription Sig Dispense Quantity Refills Last Filled Start Date End Date oxyCODONE (ROXICODONE) 10 mg tabletIndications :Pain Take 1-1.5 tablets (10-15 mg total) by mouth every 3 (three) hours as needed for pain 42 tablet 05/30/2019 1 polyethylene glycol (MIRALAX) 17 gram packetIndications :constipation Take 1 packet (17 g total) by mouth daily This medication can be found over the counter, please follow the instructions listed on the packaging. 05/31/2019 0 gabapentin (NEURONTIN) 300 mg capsule Take 1 capsule (300 mg total) by mouth nightly for 14 days 14 capsule 05/30/2019 1 acetaminophen (TYLENOL) 325 mg tabletIndications :Fever,Pain Take 2 tablets (650 mg total) by mouth every 4 (four) hours as needed for pain This medication can be found over the counter, please follow the instructions listed on the packaging. 30 tablet 05/30/2019 0 oxyCODONE (ROXICODONE) 10 mg tabletIndications :Pain Take 1-1.5 tablets (10-15 mg total) by mouth every 3 (three) hours as needed for pain 42 tablet 05/30/2019 0 oxyCODONE (ROXICODONE) 10 mg tabletIndications :Pain Take 1 tablet (10 mg total) by mouth every 3 (three) hours as needed for pain 30 tablet 05/30/2019 0 documented in this encounter Discharge Disposition Disposition Code Departure Means Destination Discharge to home or self care documented in this encounter Progress Notes * Alexander Johnson RN - 05/30/2019 2:53 PM CDT 05/30/19 1453 Discharge Summary Chart reviewed For Medical Necessity Does patient have a planned readmission to hospital planned? No Discharge Disposition Home Equipment/Provider Needs No Home Needs Identified Discharge Additional Assistance Does the patient need discharge transport arranged? No Post Discharge Care Provider Post Discharge Care Plan Next level of care provider has access to complete EMR * Clementina Walker NP - 05/30/2019 11:00 AM CDT Pain Service Analgesic Catheter Follow up Subjective Patient is a 54 y.o. male with chief complaint of acute post-operative pain. POD#: 4 Catheter Day#: 5 Surgery: S/p THORACOTOMY LOBECTOMY / lymph node disection (Right Subjective: He went down for a bronch; procedure was without any complication. Pain is well controlled; NAEO; VSS; Denies any headache, N/T or dizziness. Objective: Temp: [97.5 ??F (36.4 ??C)-99.3 ??F (37.4 ??C)] 97.5 ??F (36.4 ??C) Pulse: [87-100] 91 Resp: [12-20] 18 BP: (113-151)/(62-83) 131/62 MAP (mmHg): 79 Oxygen Therapy SpO2: 98 % PaO2 from ABG: (!) 77 Pulse Oximetry Type: Continuous Patient Activity: At rest O2 Therapy: Supplemental oxygen O2 Del Method: Nasal cannula O2 Flow Rate (L/min): 2 L/min SpO2 Alarm Limit High: 100 SpO2 Alarm Limit Low: 90 Labs: Recent Labs Lab Units 05/28/19 2257 WBC K/cumm 20.6* HEMOGLOBIN g/dL 10.2* HEMATOCRIT % 30.6* PLATELETS K/cumm 288 Recent Labs Lab Units 05/30/19 0112 SODIUM mmol/L 129* POTASSIUM PLASMA mmol/L 3.6 CHLORIDE mmol/L 98 CO2 mmol/L 23 ANIONGAP mmol/L 8 GLUCOSE mg/dL 118 BUN SERUM mg/dL 10 CREATININE mg/dL 0.70* CALCIUM mg/dL 9.0 Recent Labs Lab Units 05/26/19 2314 PH ART 7.32* PCO2 ART mmHg 41 PO2 ART mmHg 77* HCO3 ART (CALC) mmol/L 22 BASE EXC ART mmol/L -5 O2 SAT ART (GONZALO) % 95 Verbal Pain Score (0-10): at rest 2/10, with cough 3/10, with movement 4/10. No Known Allergies Scheduled Medications: [MAY Hold] acetaZOLAMIDE ER, 500 mg, oral, BID [MAY Hold] amLODIPine, 5 mg, oral, Daily [MAY Hold] cyclobenzaprine, 10 mg, oral, TID [May] enoxaparin, 40 mg, subcutaneous, Daily-2099 [May] gabapentin, 300 mg, oral, Nightly [May] lidocaine, 1 patch, transdermal, Daily [May] polyethylene glycol, 17 g, oral, Daily [May] pravastatin, 20 mg, oral, QAM [May] senna, 1 tablet, oral, BID [May] sodium chloride 0.9%, 0.5-20 mL, intra-catheter, Q8H MERLENE Continuous Medications: bupivacaine preservative free in 0.9% sodium chloride 250 mL, , Last Rate: 10 mL/hr at 05/30/19 0825 PRN Medications: ??? [May] acetaminophen ??? HYDROmorphone ??? [May] naloxone ??? naloxone ??? [May] ondansetron ??? ondansetron ??? [May] oxyCODONE ??? [May] sodium chloride 0.9% Total IV opioid patient received 0 mg in 24 hr. Total PO opioid patient received 60 mg in 24 hr. Anticoagulant: [] Warfarin [] Heparin [x] Lovenox [] Plavix []Other: Epidural Analgesics: [x] Bupivacaine 0.1% mL/hour8 [] Bupivacaine 0.1% clinician bolus: []Bupivacaine 0.15% mL/hour: Catheter (site): [x] Non-tender and dressing intact [] Catheter dislodged Side effects: [] Nausea [] Pruritis [] Sedation [] Weakness in lower extremity Physical Exam: General: [x] No acute distress HEENT: [] Normocephalic, atraumatic Respiratory: [x] Unlabored breathing Cardiovascular: [x] Regular rate and rhythm Abdomen: [x] Soft, non-tender Psychiatric: [x] Normal mood, affect, insight Skin: [x] Epidural catheter insertion site without any redness or swelling Neuro: [x] Alert and oriented x 3 Motor: [x] Moves all extremities well Dietary Orders (From admission, onward) Start Ordered 05/30/19 0001 NPO Diet Diet effective midnight 05/29/19 1123 Assessment /Plan Impression: [x] Pain is well controlled [] Pain is moderately controlled [] Pain is poorly controlled Plan: --D/c Epidural catheter [x] Continue multi-modal pain medication regimen as ordered. [x] Encourage pulmonary toilet [x] Continue bowel regimen. Epidural Local Anesthetic Infusion: [x] Analgesic Catheter out, tip intact Thank You for involving us in the care of this patient; we will sign off today. [x] Please call if further pain management questions arise. [] On Q-ball home teaching completed. Verbal and written instructions provided. [x] Plan of care done in collaboration with [x] Plan of care discussed with Primary Service. QUINTIN Irwin- Acute Pain Service Department of Anesthesiology [facility], [facility] 05/30/2019 12:17 PM * John Fernando MD - 05/30/2019 7:45 AM CDT Thoracic Surgery Daily Progress Subjective Chief complaint: RLL nodule Interval History: POD4 s/p THORACOTOMY LOBECTOMY / lymph node disection (Right). NAEON. VSS. CT was discontinued yesterday. Post pull CXR negative for obvious pneumothorax. Hyponatremia present, asymptomatic. Good UOP. Cr is at baseline. Denies uncontrolled pain or nausea. Current Facility-Administered Medications: ??? acetaminophen (TYLENOL) tablet 650 mg, 650 mg, oral, Q4H PRN, Amy Chun MD, 650 mg at 05/28/191658 ??? [Held by Provider] acetaZOLAMIDE ER (DIAMOX SEQUAL) extended release capsule 500 mg, 500 mg, oral, BID, Amy Chun MD, 500 mg at 05/27/192038 ??? amLODIPine (NORVASC) tablet 5 mg, 5 mg, oral, Daily, Estrellita Reyes NP, 5 mg at 05/29/19 0841 ??? bupivacaine preservative free in 0.9% sodium chloride 250 mL 0.1 % (1,000 mcg/mL), , epidural, Continuous, Shelby Mcdonough NP, Last Rate: 10 mL/hr at 05/30/19 0400 ??? cyclobenzaprine (FLEXERIL) tablet 10 mg, 10 mg, oral, TID, Amy Chun MD, 10 mgat 05/29/19 1702 ??? enoxaparin (LOVENOX) syringe 40 mg, 40 mg, subcutaneous, Daily-2100, Amy Chun MD, 40 mg at 05/28/192250 ??? gabapentin (NEURONTIN) capsule 300 mg, 300 mg, oral, Nightly, John Fernando MD, 300 mg at 05/29/192045 ??? guaiFENesin ER (MUCINEX) extended release tablet 600 mg, 600 mg, oral, BID, Estrellita Reyes NP, 600 mg at 05/29/192045 ??? lidocaine (LIDODERM) 5 % patch 1 patch, 1 patch, transdermal, Daily, John Fernando MD, Stopped at 05/29/192047 ??? naloxone (NARCAN) 0.4 mg/mL injection 0.04-0.4 mg, 0.04-0.4 mg, intravenous, Once PRN, Amy Chun MD ??? ondansetron (ZOFRAN) injection 4 mg, 4 mg, intravenous, Q6H PRN, Amy Chun MD ??? oxyCODONE (ROXICODONE) tablet 10 mg, 10 mg, oral, Q3H PRN, Myrtle Haji MD, 10 mg at 05/30/19 0425 ??? polyethylene glycol (MIRALAX) packet 17 g, 17 g, oral, Daily, Shelby Mcdonough, TJ, 17 g at 05/29/19 0842 ??? pravastatin (PRAVACHOL) tablet 20 mg, 20 mg, oral, QAM, Amy Chun MD, 20 mg at05/29/19 0841 ??? senna (SENOKOT) tablet 1 tablet, 1 tablet, oral, BID, 1 tablet at 05/29/192045 OR [DISCONTINUED] senna 1.76 mg/mL syrup 8.8 mg, 8.8 mg, feeding tube, BID, Amy Chun MD ??? sodium chloride 0.9% flush 0.5-20 mL, 0.5-20 mL, intra-catheter, Q8H MERLENE, Amy Chun MD, 10 mL at 05/29/19 2239 ??? sodium chloride 0.9% flush 0.5-20 mL, 0.5-20 mL, intra-catheter, PRN, Amy Chun MD, 10 mL at 05/28/19 1840 Objective Physical Exam: Constitutional: He is oriented to person, place, and time. He appears well-developed. Eyes: Pupils are equal, round, and reactive to light. Conjunctivae are normal. Neck: Normal range of motion. Cardiovascular: Normal rate and regular rhythm. Pulmonary/Chest: Effort normal and breath sounds normal. Abdominal: Soft. He exhibits no distension. There is no abdominal tenderness. Musculoskeletal: Normal range of motion. Neurological: He is alert and oriented to person, place, and time. Skin: Skin is warm. Psychiatric: He has a normal mood and affect. Lab/Radiology/Diagnostic Review: Laboratory review: Lab results in the last 24 hours: Recent Results (from the past 24 hour(s)) Basic metabolic panel Collection Time: 05/30/19 1:12 AM Result Value Ref Range Sodium 129 (L) 135 - 145 mmol/L Potassium, pl 3.6 3.3 - 4.9 mmol/L Chloride 98 97 - 110 mmol/L CO2 23 22 - 32 mmol/L Anion gap 8 2 - 15 mmol/L BUN 10 8 - 25 mg/dL Creatinine 0.70 (L) 0.80 - 1.30 mg/dL Glucose 118 70 - 199 mg/dL Calcium 9.0 8.5 - 10.3 mg/dL Image Review: XR Chest 1 View Narrative: EXAMINATION: 1 view chest radiograph Impression: Comparison is made to chest radiograph dated 05/26/2019. Right-sided thoracostomy tube is in place. There are small lung volumes with bibasilar atelectasis slightly increased in the right lung base minimally improved in the left lung base. No effusion. Stable heart size. Dictated by: Raza Kaye M.D. The radiology attending physician has personally reviewed this study, and had reviewed and/or edited this written report and agrees with it. Electronically signed by: aKthy Johnson M.D. Vitals: 24hr Min/Max: Temp Min: 36.5 ??C (97.7 ??F) Max: 37.4 ??C (99.3 ??F) Pulse Min: 91 Max: 100 BP Min: 131/70 Max: 151/73 Resp Min: 16 Max: 20 SpO2 Min: 94 % Max: 100 % Most Recent : Vitals: 05/30/19 0730 BP: 135/64 Pulse: 95 Resp: 16 Temp: 37.4 ??C (99.3 ??F) SpO2: 94% I/O last 2 completed shifts: In: 1635 [P.O.:1535] Out: 1375 [Urine:1375] No intake/output data recorded. Plan Principal Problem: Malignant neoplasm of lower lobe of right lung (CMS/HCC) Active Problems: LEIDA (acute kidney injury) (CMS/HCC) Plan LEIDA (acute kidney injury) (CMS/HCC) Assessment & Plan Elevated Cr of 1.35. Hyponatremia to 127 Restart acetazolamide. 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 Diet: ADAT Pain control: Epidural, D/c'd KILN STACKER. POPM IS Bowel reg DVT prophylaxis CT to WS D/c'd beach, voiding D/c'd A-line, d/c'd OU status Bronchoscopy today John Fernando Cosigned by Jasper Canchola MD at 05/30/2019 12:21 PM CDT * Mp Turner MD - 05/29/2019 9:51 AM CDT Pain Service Analgesic Catheter Follow up Subjective Patient is a 54 y.o. male with chief complaint of acute post-operative pain in setting of right thoracotomy. POD#: 3 Catheter Day#: 4 Surgery: Right Thoracotomy Subjective: Pain is under good control at this time. Chest tube was removed this AM. Primary team would like epidural to stay until tomorrow. Patient has been up walking. Objective: Temp: [36.8 ??C (98.3 ??F)-37.4 ??C (99.4 ??F)] 36.8 ??C (98.3 ??F) Pulse: [83-91] 91 Resp: [18-20] 20 BP: (122-147)/(63-73) 136/67 MAP (mmHg): 81 Oxygen Therapy SpO2: 94 % PaO2 from ABG: (!) 77 Pulse Oximetry Type: Continuous Patient Activity: At rest O2 Therapy: None (Room air) O2 Del Method: Nasal cannula O2 Flow Rate (L/min): 0 L/min SpO2 Alarm Limit High: 100 SpO2 Alarm Limit Low: 90 Labs: Recent Labs Lab Units 05/28/19 2257 WBC K/cumm 20.6* HEMOGLOBIN g/dL 10.2* HEMATOCRIT % 30.6* PLATELETS K/cumm 288 Recent Labs Lab Units 05/28/19 2257 SODIUM mmol/L 131* POTASSIUM PLASMA mmol/L 3.8 CHLORIDE mmol/L 100 CO2 mmol/L 23 ANIONGAP mmol/L 8 GLUCOSE mg/dL 125 BUN SERUM mg/dL 16 CREATININE mg/dL 0.77* CALCIUM mg/dL 8.9 Recent Labs Lab Units 05/26/19 2314 PH ART 7.32* PCO2 ART mmHg 41 PO2 ART mmHg 77* HCO3 ART (CALC) mmol/L 22 BASE EXC ART mmol/L -5 O2 SAT ART (GONZALO) % 95 Verbal Pain Score (0-10): at rest 3/10, with cough 5/10, with movement 5/10. Scheduled Medications: [Held by Provider] acetaZOLAMIDE ER, 500 mg, oral, BID amLODIPine, 5 mg, oral, Daily cyclobenzaprine, 10 mg, oral, TID enoxaparin, 40 mg, subcutaneous, Daily-2100 gabapentin, 300 mg, oral, Nightly guaiFENesin ER, 600 mg, oral, BID lidocaine, 1 patch, transdermal, Daily polyethylene glycol, 17 g, oral, Daily pravastatin, 20 mg, oral, QAM senna, 1 tablet, oral, BID sodium chloride 0.9%, 0.5-20 mL, intra-catheter, Q8H MERLENE Continuous Medications: bupivacaine preservative free in 0.9% sodium chloride 250 mL, , Last Rate: 10 mL/hr at 05/28/192048 PRN Medications: ??? acetaminophen ??? naloxone ??? ondansetron ??? oxyCODONE ??? sodium chloride 0.9% Anticoagulant: []?Warfarin ?[]?Heparin ?[x]?Lovenox ?[]?Plavix ?[]??Other: ?Epidural Analgesics: ?[x]?Bupivacaine 0.1% mL/hour: 10 ?[]?Bupivacaine 0.1% clinician bolus: ?[]??Bupivacaine 0.15% mL/hour: ?? Catheter (site): [x]? Non-tender and dressing intact []? Catheter dislodged Side effects: [] Nausea [] Pruritis [] Sedation [] Weakness in lower extremity Physical Exam: General: [x] No acute distress HEENT: [x] Normocephalic, atraumatic Respiratory: [x] Unlabored breathing Cardiovascular: [x] Regular rate and rhythm Abdomen: [x] Soft, non-tender Psychiatric: [x] Normal mood, affect, insight Skin: [x] No rashes or lesions Neuro: [x] Alert and oriented x 3 Motor: [x] Moves all extremities well Assessment /Plan Impression: Pain is well controlled. Plan: [x] Continue present management Epidural Local Anesthetic Infusion: Will plan to remove epidural tomorrow and No Change Systemic Analgesic: Flexeril 10mg TID Gabapentin 300mg nightly Tylenol 650mg q4 prn--> would recommend scheduling Oxycodone 10mg q3 hours prn [x] Please call if further pain management questions arise. Mp Turner MD 05/29/2019 9:51 AM Cosigned by Mp Howard MD at 05/29/2019 11:38 PM CDT Associated attestation - Mp Howard MD - 05/29/2019 11:38 PM CDT I have seen and examined the patient on 05/29/19. I agree with the findings and plan of care as documented in the resident's/fellow's note. * John Fernando MD - 05/29/2019 4:49 AM CDT Thoracic Surgery Daily Progress Subjective Chief complaint: RLL nodule Interval History: POD3 s/p THORACOTOMY LOBECTOMY / lymph node disection (Right). NAEON. VSS. CT output of 50m over 12 hrs, 130m over 24 hrs. To WS with air leak present. Hyponatremia improved, asymptomatic. Good UOP. Cr is back to baseline. Denies uncontrolled pain or nausea. Current Facility-Administered Medications: ??? acetaminophen (TYLENOL) tablet 650 mg, 650 mg, oral, Q4H PRN, Amy Chun MD, 650 mg at 05/28/191658 ??? [Held by Provider] acetaZOLAMIDE ER (DIAMOX SEQUAL) extended release capsule 500 mg, 500 mg, oral, BID, Amy Chun MD, 500 mg at 05/27/192038 ??? amLODIPine (NORVASC) tablet 5 mg, 5 mg, oral, Daily, Estrellita Reyes NP, 5 mg at 05/28/19 0859 ??? bupivacaine preservative free in 0.9% sodium chloride 250 mL 0.1 % (1,000 mcg/mL), , epidural, Continuous, Shelby Mcdonough NP, Last Rate: 10 mL/hr at 05/28/192048 ??? cyclobenzaprine (FLEXERIL) tablet 10 mg, 10 mg, oral, TID, Amy Chun MD, Stopped at 05/28/19 1545 ??? enoxaparin (LOVENOX) syringe 40 mg, 40 mg, subcutaneous, Daily-2100, Amy Chun MD, 40 mg at 05/28/19 225 ??? gabapentin (NEURONTIN) capsule 300 mg, 300 mg, oral, Nightly, John Fernando MD, 300 mg at 05/28/192048 ??? guaiFENesin ER (MUCINEX) extended release tablet 600 mg, 600 mg, oral, BID, Estrellita Reyes NP, 600 mg at 05/28/192048 ??? Lactated Ringer's (LR) infusion, 20 mL/hr, intravenous, Continuous, Shelby Mcdonough NP, Last Rate: 20 mL/hr at 05/28/19 1800, 20 mL/hr at 05/28/19 1800 ??? lidocaine (LIDODERM) 5 % patch 1 patch, 1 patch, transdermal, Daily, John Fernando MD, 1 patch at 05/28/19 1750 ??? naloxone (NARCAN) 0.4 mg/mL injection 0.04-0.4 mg, 0.04-0.4 mg, intravenous, Once PRN, Amy Chun MD ??? ondansetron (ZOFRAN) injection 4 mg, 4 mg, intravenous, Q6H PRN, Amy Chun MD ??? oxyCODONE (ROXICODONE) tablet 10 mg, 10 mg, oral, Q4H PRN, John Fernando MD, 10 mg at 05/29/19 0122 ??? polyethylene glycol (MIRALAX) packet 17 g, 17 g, oral, Daily, Shelby Mcdonough NP, 17 g at 05/28/19 0902 ??? pravastatin (PRAVACHOL) tablet 20 mg, 20 mg, oral, QAM, Amy Chun MD, 20 mg at05/28/19 0859 ??? senna (SENOKOT) tablet 1 tablet, 1 tablet, oral, BID, 1 tablet at 05/28/192048 OR [DISCONTINUED] senna 1.76 mg/mL syrup 8.8 mg, 8.8 mg, feeding tube, BID, Amy Chun MD ??? sodium chloride 0.9% flush 0.5-20 mL, 0.5-20 mL, intra-catheter, Q8H MERLENE, Amy Chun MD, 10 mL at 05/28/19 2251 ??? sodium chloride 0.9% flush 0.5-20 mL, 0.5-20 mL, intra-catheter, PRN, Amy Chun MD, 10 mL at 05/28/19 1840 Objective Physical Exam: Constitutional: He is oriented to person, place, and time. He appears well-developed. Eyes: Pupils are equal, round, and reactive to light. Conjunctivae are normal. Neck: Normal range of motion. Cardiovascular: Normal rate and regular rhythm. Pulmonary/Chest: Effort normal and breath sounds normal. CT in place with air leak. Incision is clean dry and intact Abdominal: Soft. He exhibits no distension. There is no abdominal tenderness. Musculoskeletal: Normal range of motion. Neurological: He is alert and oriented to person, place, and time. Skin: Skin is warm. Psychiatric: He has a normal mood and affect. Lab/Radiology/Diagnostic Review: Laboratory review: Lab results in the last 24 hours: Recent Results (from the past 24 hour(s)) Basic metabolic panel Collection Time: 05/28/19 10:57 PM Result Value Ref Range Sodium 131 (L) 135 - 145 mmol/L Potassium, pl 3.8 3.3 - 4.9 mmol/L Chloride 100 97 - 110 mmol/L CO2 23 22 - 32 mmol/L Anion gap 8 2 - 15 mmol/L BUN 16 8 - 25 mg/dL Creatinine 0.77 (L) 0.80 - 1.30 mg/dL Glucose 125 70 - 199 mg/dL Calcium 8.9 8.5 - 10.3 mg/dL CBC without differential Collection Time: 05/28/19 10:57 PM Result Value Ref Range WBC 20.6 (H) 3.8 - 9.9 K/cumm Hgb 10.2 (L) 13.0 - 17.5 g/dL Hct 30.6 (L) 38.9 - 50.3 % Plt 288 150 - 400 K/cumm MPV 12.1 9.1 - 12.3 fL RBC 3.61 (L) 4.30 - 5.80 M/cumm MCV 84.8 81.3 - 96.4 fL MCH 28.3 27.1 - 33.3 pg MCHC 33.3 32.3 - 35.7 g/dL RDW CV 13.9 11.1 - 14.9 % RDW SD 43.4 35.7 - 48.1 fL NRBC abs 0.00 0.00 - 0.01 K/cumm Image Review: XR Chest 1 View Narrative: EXAMINATION: 1 view chest radiograph Impression: Comparison is made to chest radiograph dated 05/26/2019. Right-sided thoracostomy tube is in place. There are small lung volumes with bibasilar atelectasis slightly increased in the right lung base minimally improved in the left lung base. No effusion. Stable heart size. Dictated by: Raza Kaye M.D. The radiology attending physician has personally reviewed this study, and had reviewed and/or edited this written report and agrees with it. Electronically signed by: Kathy Johnson M.D. Vitals: 24hr Min/Max: Temp Min: 36.8 ??C (98.2 ??F) Max: 37.4 ??C (99.4 ??F) Pulse Min: 72 Max: 88 BP Min: 122/63 Max: 147/68 Resp Min: 16 Max: 20 SpO2 Min: 95 % Max: 100 % Most Recent : Vitals: 05/29/19 0351 BP: 126/73 Pulse: 88 Resp: 20 Temp: 36.9 ??C (98.4 ??F) SpO2: 95% I/O last 2 completed shifts: In: 3900 [P.O.:3170; I.V.:490] Out: 5170 [Urine:4870; Chest Tube:300] I/O this shift: In: 950 [P.O.:850] Out: 2350 [Urine:2300; Chest Tube:50] Plan Principal Problem: Malignant neoplasm of lower lobe of right lung (CMS/HCC) Active Problems: LEIDA (acute kidney injury) (CMS/HCC) Plan LEIDA (acute kidney injury) (CMS/HCC) Assessment & Plan Elevated Cr of 1.35. Hyponatremia to 127 Hold acetazolamide. 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 Diet: ADAT Pain control: Epidural, D/c'd KILN STACKER. POPM D/c IVF IS Bowel reg DVT prophylaxis CT to WS D/c'd beach, voiding D/c'd A-line, d/c'd OU status NPO MN for bronchoscopy 05/29 John Fernando Cosigned by Jasper Canchola MD at 05/29/2019 11:58 AM CDT * Mp Turner MD - 05/28/2019 9:51 AM CDT Pain Service Analgesic Catheter Follow up Subjective Patient is a 54 y.o. male with chief complaint of acute post-operative pain in setting of right thoracotomy. POD#: 2 Catheter Day#: 3 Surgery: Right thoracotomy Subjective: Pain is under good control currently with epidural @10ml/hr and HM KILN STACKER. Patient plans to get up andwalk this afternoon. Patient has received 9.8mg of HM through KILN STACKER in last 24 hours. Objective: Temp: [36.4 ??C (97.6 ??F)-36.9 ??C (98.5 ??F)] 36.8 ??C (98.2 ??F) Pulse: [61-72] 72 Resp: [9-26] 16 BP: (100-137)/(53-80) 126/65 MAP (mmHg): 78 Oxygen Therapy SpO2: 96 % PaO2 from ABG: (!) 77 Pulse Oximetry Type: Continuous Patient Activity: At rest O2 Therapy: None (Room air) O2 Del Method: Nasal cannula O2 Flow Rate (L/min): 0 L/min SpO2 Alarm Limit High: 100 SpO2 Alarm Limit Low: 90 Labs: Recent Labs Lab Units 05/27/192152 WBC K/cumm 26.1* HEMOGLOBIN g/dL 11.0* HEMATOCRIT % 34.4* PLATELETS K/cumm 301 Recent Labs Lab Units 05/27/192152 SODIUM mmol/L 127* POTASSIUM PLASMA mmol/L 3.7 CHLORIDE mmol/L 95* CO2 mmol/L 25 ANIONGAP mmol/L 7 GLUCOSE mg/dL 123 BUN SERUM mg/dL 20 CREATININE mg/dL 1.35* CALCIUM mg/dL 8.9 Recent Labs Lab Units 05/26/19 2314 PH ART 7.32* PCO2 ART mmHg 41 PO2 ART mmHg 77* HCO3 ART (CALC) mmol/L 22 BASE EXC ART mmol/L -5 O2 SAT ART (GONZALO) % 95 Verbal Pain Score (0-10): at rest 0/10, with cough 2/10, with movement 4/10. Scheduled Medications: [Held by Provider] acetaZOLAMIDE ER, 500 mg, oral, BID amLODIPine, 5 mg, oral, Daily cyclobenzaprine, 10 mg, oral, TID enoxaparin, 40 mg, subcutaneous, Daily-2100 gabapentin, 300 mg, oral, Nightly guaiFENesin ER, 600 mg, oral, BID polyethylene glycol, 17 g, oral, Daily pravastatin, 20 mg, oral, QAM senna, 1 tablet, oral, BID sodium chloride 0.9%, 0.5-20 mL, intra-catheter, Q8H MERLENE Continuous Medications: bupivacaine preservative free in 0.9% sodium chloride 250 mL, , Last Rate: 10 mL/hr at 05/28/19 0900 Lactated Ringer's, 20 mL/hr, Last Rate: 20 mL/hr (05/28/19 0900) PRN Medications: ??? acetaminophen ??? naloxone ??? ondansetron ??? oxyCODONE ??? sodium chloride 0.9% Anticoagulant: []? Warfarin []? Heparin [x]? Lovenox []? Plavix []?Other: Epidural Analgesics: ?? [x]? Bupivacaine 0.1% mL/hour: 10 []? Bupivacaine 0.1% clinician bolus: ?? []?Bupivacaine 0.15% mL/hour: Catheter (site): [x] Non-tender and dressing intact [] Catheter dislodged Side effects: [] Nausea [] Pruritis [] Sedation [] Weakness in lower extremity Physical Exam: General: [x] No acute distress HEENT: [x] Normocephalic, atraumatic Respiratory: [x] Unlabored breathing Cardiovascular: [x] Regular rate and rhythm Abdomen: [x] Soft, non-tender Psychiatric: [x] Normal mood, affect, insight Skin: [x] No rashes or lesions Neuro: [x] Alert and oriented x 3 Motor: [] Moves all extremities well Assessment /Plan Impression: Pain is well controlled. Plan: [x] Continue present management - primary team planning on discontinuing KILN STACKER and switching to oral medications today Epidural Local Anesthetic Infusion: No Change [x] Please call if further pain management questions arise. [] On [employer]-ball home teaching completed. Verbal and written instructions provided. Mp Turner MD 05/28/2019 9:51 AM Cosigned by Mp Howard MD at 05/28/2019 11:06 PM CDT Associated attestation - Mp Howard MD - 05/28/2019 11:06 PM CDT I have seen and examined the patient on 05/28/19. I agree with the findings and plan of care as documented in the resident's/fellow's note. * John Fernando MD - 05/28/2019 6:35 AM CDT Thoracic Surgery Daily Progress Subjective Chief complaint: RLL nodule Interval History: POD2 s/p THORACOTOMY LOBECTOMY / lymph node disection (Right). NAEON. VSS. CT output of 170m over 12 hrs, 590m over 24 hrs. To -20 with no air- leak present. Hyponatremia to 127, asymptomatic. Started on free water restriction. Current Facility-Administered Medications: ??? acetaminophen (TYLENOL) tablet 650 mg, 650 mg, oral, Q4H PRN, Amy Chun MD, 650 mg at 05/27/191722 ??? acetaZOLAMIDE ER (DIAMOX SEQUAL) extended release capsule 500 mg, 500 mg, oral, BID, Amy Chun MD, 500 mg at 05/27/192038 ??? amLODIPine (NORVASC) tablet 5 mg, 5 mg, oral, Daily, Estrellita Reyes NP, 5 mg at 05/27/191530 ??? bupivacaine preservative free in 0.9% sodium chloride 250 mL 0.1 % (1,000 mcg/mL), , epidural, Continuous, Shelby Mcdonough NP, Last Rate: 10 mL/hr at 05/28/190 ??? cyclobenzaprine (FLEXERIL) tablet 10 mg, 10 mg, oral, TID, Amy Chun MD, 10 mgat 05/27/191530 ??? enoxaparin (LOVENOX) syringe 40 mg, 40 mg, subcutaneous, Daily-2099, Amy Chun MD, 40 mg at 05/27/192037 ??? gabapentin (NEURONTIN) capsule 300 mg, 300 mg, oral, TID, Amy Chun MD, 300 mgat 05/27/192037 ??? guaiFENesin ER (MUCINEX) extended release tablet 600 mg, 600 mg, oral, BID, Estrellita Reyes NP, 600 mg at 05/27/191530 ??? HYDROmorphone in 0.9% sodium chloride (DILAUDID) 20 mg/100 mL (0.2 mg/mL) infusion (premix), , intravenous, Continuous, Adri Mccloud NP ??? Lactated Ringer's (LR) infusion, 20 mL/hr, intravenous, Continuous, Shelby Mcdonough NP, Last Rate: 20 mL/hr at 05/28/19299, 20 mL/hr at 05/28/19299 ??? naloxone (NARCAN) 0.4 mg/mL injection 0.04-0.4 mg, 0.04-0.4 mg, intravenous, Q10 Min PRN, Adri Mccloud NP ??? naloxone (NARCAN) 0.4 mg/mL injection 0.04-0.4 mg, 0.04-0.4 mg, intravenous, Once PRN, Amy Chun MD ??? ondansetron (ZOFRAN) injection 4 mg, 4 mg, intravenous, Q6H PRN, Amy Chun MD ??? polyethylene glycol (MIRALAX) packet 17 g, 17 g, oral, Daily, Shelby Mcdonough NP, 17 g at 05/27/19 1531 ??? pravastatin (PRAVACHOL) tablet 20 mg, 20 mg, oral, QAM, Amy Chun MD, 20 mg at05/27/19 0843 ??? senna (SENOKOT) tablet 1 tablet, 1 tablet, oral, BID, 1 tablet at 05/27/192038 OR [DISCONTINUED] senna 1.76 mg/mL syrup 8.8 mg, 8.8 mg, feeding tube, BID, Amy Chun MD ??? sodium chloride 0.9% flush 0.5-20 mL, 0.5-20 mL, intra-catheter, Q8H MERLENE, Amy Chun MD, 10 mL at 05/27/192199 ??? sodium chloride 0.9% flush 0.5-20 mL, 0.5-20 mL, intra-catheter, PRN, Amy Chun MD Objective Physical Exam: Constitutional: He is oriented to person, place, and time. He appears well-developed. Eyes: Pupils are equal, round, and reactive to light. Conjunctivae are normal. Neck: Normal range of motion. Cardiovascular: Normal rate and regular rhythm. Pulmonary/Chest: Effort normal and breath sounds normal. CT in place with no air leak. Incision is clean dry and intact Abdominal: Soft. He exhibits no distension. There is no abdominal tenderness. Musculoskeletal: Normal range of motion. Neurological: He is alert and oriented to person, place, and time. Skin: Skin is warm. Psychiatric: He has a normal mood and affect. Lab/Radiology/Diagnostic Review: Laboratory review: Lab results in the last 24 hours: Recent Results (from the past 24 hour(s)) CBC without differential Collection Time: 05/27/19 9:53 PM Result Value Ref Range WBC 26.1 (H) 3.8 - 9.9 K/cumm Hgb 11.0 (L) 13.0 - 17.5 g/dL Hct 34.4 (L) 38.9 - 50.3 % Plt 301 150 - 400 K/cumm MPV 11.5 9.1 - 12.3 fL RBC 3.88 (L) 4.30 - 5.80 M/cumm MCV 88.7 81.3 - 96.4 fL MCH 28.4 27.1 - 33.3 pg MCHC 32.0 (L) 32.3 - 35.7 g/dL RDW CV 14.4 11.1 - 14.9 % RDW SD 46.1 35.7 - 48.1 fL NRBC abs 0.00 0.00 - 0.01 K/cumm Basic metabolic panel Collection Time: 05/27/19 9:53 PM Result Value Ref Range Sodium 127 (L) 135 - 145 mmol/L Potassium, pl 3.7 3.3 - 4.9 mmol/L Chloride 95 (L) 97 - 110 mmol/L CO2 25 22 - 32 mmol/L Anion gap 7 2 - 15 mmol/L BUN 20 8 - 25 mg/dL Creatinine 1.35 (H) 0.80 - 1.30 mg/dL Glucose 123 70 - 199 mg/dL Calcium 8.9 8.5 - 10.3 mg/dL Image Review: XR Chest 1 View - in ICU Narrative: EXAMINATION: 1 view chest radiograph Impression: Comparison is made to same day intraoperative chest radiograph. Interval extubation. A right thoracostomy tube is redemonstrated. Interval resolution of the previously demonstrated right pneumothorax. No left pneumothorax. Small lung volumes are noted bilaterally resulting vascular crowding. Mild left basilar retrocardiac elective basis is noted. No pulmonary edema. Apparent widening of the mediastinal silhouette is likely artifactual secondary to portable technique and lordotic positioning. Subcutaneous emphysema is noted along the right lateral chest wall. Dictated by: Ilan Gutierrez The radiology attending physician has personally reviewed this study, and had reviewed and/or edited this written report and agrees with it. Electronically signed by: Connor Lin M.D. XR Chest 1 View Narrative: EXAMINATION: 1 view chest radiograph Impression: Comparison is made to prior chest radiographs dated 05/06/2019.. There is selective intubation of the left mainstem bronchus. A right chest tube is seen. There is a large right pneumothorax with associated atelectasis of the right lung. The right lung apex and mediastinum are obscured by overlying soft tissue. No retained needle is seen within the limitations of the study. The Non Critical results were discussed with Dr. Canchola by Dr. Becky Olivarez on 05/26/2019 at 1:50 PM. Dictated by: Becky Olivarez M.D. The radiology attending physician has personally reviewed this study, and had reviewed and/or edited this written report and agrees with it. Electronically signed by: Connor Lin M.D. Vitals: 24hr Min/Max: Temp Min: 36.4 ??C (97.6 ??F) Max: 36.9 ??C (98.5 ??F) Pulse Min: 61 Max: 70 BP Min: 100/60 Max: 151/79 Resp Min: 9 Max: 26 SpO2 Min: 90 % Max: 99 % Most Recent : Vitals: 05/28/19 0300 BP: 108/53 Pulse: 67 Resp: 20 Temp: 36.7 ??C (98.1 ??F) SpO2: 98% I/O last 2 completed shifts: In: 6608.7 [P.O.:6240; I.V.:129.7] Out: 1868 [Urine:930; Chest Tube:938] I/O this shift: In: 2070 [P.O.:1800; I.V.:180] Out: 1570 [Urine:1400; Chest Tube:170] Plan Principal Problem: Malignant neoplasm of lower lobe of right lung (CMS/HCC) Plan LEIDA (acute kidney injury) (CMS/HCC) Assessment & Plan Elevated Cr of 1.35. 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 Diet: ADAT Pain control: Epidural, D/c KILN STACKER. POPM IVF: LR at 75 IS Bowel reg DVT prophylaxis CT to WS D/c'd beach, voiding D/c'd A-line, d/c'd OU status John Fernando Cosigned by Jasper Canchola MD at 05/29/2019 11:58 AM CDT * Shelby Tyson RN - 05/27/2019 1:59 PM CDT 05/27/19 2653 Information Information Obtained From Patient Prior to Admission Primary Caregiver Self Support System Spouse/Significant Other Support system contact info (name, phone, availablity) -Faith Kulkarni [phone] Durable Medical Equipment None Living Arrangements Spouse/significant other Type of Residence Private residence Steps in home? 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 Additional Information/Options Discussed: explained role and purpose of case management. Demographics verified with face sheet PCP verified as KALPANA Lema Plan Includes: Will await therapy evals for dispo planning CM will continue to follow for referralsas needed. Cecilia Cuevas will provide transportation home as verified with patient and family Insurance verified as: [employer] Preferred Pharmacy: [facility]. Admit Source: home Problem/Goal: Patient awaits further evaluation for medical discharge needs and home needs. CM willassist patient with home needs as indicated and identified for safe discharge planning. Transportation: Cecilia Cuevas [phone] Through the course of our work I determined that Faith possess the skill and ability to provide andmonitor the care of the patient when he returns home. Faith has the capacity to provide/monitor/arrange for the care of the patient. Finally, we determined that Faith has the knowledge of available resources and that combining them with their existing resources will suffice to sustain and carefor the patient when he or she returns home. The treatment team is aware of this information. All are in agreement with the aftercare plan. * Clementina Walker NP - 05/27/2019 10:45 AM CDT Pain Service Analgesic Catheter Follow up Subjective Patient is a 54 y.o. male with chief complaint of acute post-operative pain. POD#: 1 Catheter Day#: 2 Surgery: S/p THORACOTOMY LOBECTOMY / lymph node disection (Right). Subjective: He is up in the chair; progressing well as expected ; NAEO; VSS; CT to suction; pain is well controlled after epidural rate increased to 10 ml/hr ; Denies any N/T, headache or dizziness. Objective: Temp: [97.2 ??F (36.2 ??C)-98.2 ??F (36.8 ??C)] 98.1 ??F (36.7 ??C) Pulse: [62-86] 64 Resp: [8-26] 17 BP: (99-170)/(48-116) 133/66 Arterial Line BP: (102-130)/(40-65) 130/57 MAP (mmHg): 84 Oxygen Therapy SpO2: 92 % PaO2 from ABG: (!) 77 Pulse Oximetry Type: Continuous Patient Activity: At rest O2 Therapy: Supplemental oxygen O2 Del Method: Nasal cannula O2 Flow Rate (L/min): 2 L/min Labs: Recent Labs Lab Units 05/26/19 2315 WBC K/cumm 24.3* HEMOGLOBIN g/dL 11.6* HEMATOCRIT % 35.9* PLATELETS K/cumm 291 Recent Labs Lab Units 05/26/19 2315 SODIUM mmol/L 136 POTASSIUM PLASMA mmol/L 4.0 CHLORIDE mmol/L 106 CO2 mmol/L 23 ANIONGAP mmol/L 7 GLUCOSE mg/dL 166 BUN SERUM mg/dL 11 CREATININE mg/dL 0.66* CALCIUM mg/dL 9.0 Recent Labs Lab Units 05/26/19 2314 PH ART 7.32* PCO2 ART mmHg 41 PO2 ART mmHg 77* HCO3 ART (CALC) mmol/L 22 BASE EXC ART mmol/L -5 O2 SAT ART (GONZALO) % 95 Verbal Pain Score (0-10): at rest 3/10, with cough 4/10, with movement 5/10. No Known Allergies Scheduled Medications: acetaZOLAMIDE ER, 500 mg, oral, BID cyclobenzaprine, 10 mg, oral, TID enoxaparin, 40 mg, subcutaneous, Daily-2100 gabapentin, 300 mg, oral, TID ketorolac, 15 mg, intravenous, Q6H polyethylene glycol, 17 g, oral, Daily pravastatin, 20 mg, oral, QAM senna, 1 tablet, oral, BID sodium chloride 0.9%, 0.5-20 mL, intra-catheter, Q8H MERLENE Continuous Medications: bupivacaine preservative free in 0.9% sodium chloride 250 mL, , Last Rate: 10 mL/hr at 05/27/19 1026 HYDROmorphone, Lactated Ringer's, 20 mL/hr, Last Rate: 20 mL/hr (05/27/19 0926) PRN Medications: ??? acetaminophen ??? naloxone ??? naloxone ??? ondansetron ??? sodium chloride 0.9% Total IV opioid patient received 5.6 mg in 24 hr. Total PO opioid patient received 0 mg in 24 hr. Anticoagulant: [] Warfarin [] Heparin [x] Lovenox [] Plavix []Other: Epidural Analgesics: [x] Bupivacaine 0.1% mL/hour:10 [] Bupivacaine 0.1% clinician bolus: []Bupivacaine 0.15% mL/hour: Catheter (site): [x] Non-tender and dressing intact [] Catheter dislodged Side effects: [] Nausea [] Pruritis [] Sedation [] Weakness in lower extremity Physical Exam: General: [x] No acute distress HEENT: [] Normocephalic, atraumatic Respiratory: [x] Unlabored breathing Cardiovascular: [x] Regular rate and rhythm Abdomen: [x] Soft, non-tender Psychiatric: [x] Normal mood, affect, insight Skin: [x] Epidural catheter insertion site without any redness or swelling Neuro: [x] Alert and oriented x 3 Motor: [] Moves all extremities well Dietary Orders (From admission, onward) Start Ordered 05/27/19 0736 Adult Diet Regular Diet effective now Question: ([facility]) Diet type Answer: Regular 05/27/19 0736 Assessment /Plan Impression: Tolerating oral diet; no N/V, NAD [] Pain is well controlled [x] Pain is moderately controlled [] Pain is poorly controlled Plan: [x] Continue multi-modal pain medication regimen as ordered. [x] Encourage pulmonary toilet [x] Continue bowel regimen. Epidural Local Anesthetic Infusion: [x] Increase to 10 ml/hr IV KILN STACKER demand amount: [x] No Change Thank You for involving us in the care of this patient; we will continue to follow. [x] Please call if further pain management questions arise. [] On Q-ball home teaching completed. Verbal and written instructions provided. [x] Plan of care done in collaboration with [x] Plan of care discussed with Primary Service. DANNIELLE Irwin- Acute Pain Service Department of Anesthesiology [facility], [employer] 05/27/2019 12:55 PM * John Fernando MD - 05/27/2019 7:58 AM CDT Thoracic Surgery Daily Progress Subjective Chief complaint: RLL nodule Interval History: POD1 s/p THORACOTOMY LOBECTOMY / lymph node disection (Right). NAEON. Hypertensive but remains HDS. CT output of 140m over 12 hrs, 410m over 24 hrs. To -20 with air-leak present. Current Facility-Administered Medications: ??? acetaminophen (TYLENOL) tablet 650 mg, 650 mg, oral, Q4H PRN, Amy Chun MD, 650 mg at 05/26/192002 ??? acetaZOLAMIDE ER (DIAMOX SEQUAL) extended release capsule 500 mg, 500 mg, oral, BID, Amy Chun MD, 500 mg at 05/26/199 ??? bupivacaine preservative free in 0.9% sodium chloride 250 mL 0.1 % (1,000 mcg/mL), , epidural, Continuous, Amy Chun MD, Last Rate: 8 mL/hr at 05/26/19 1400 ??? cyclobenzaprine (FLEXERIL) tablet 10 mg, 10 mg, oral, TID, Amy Chun MD, 10 mgat 05/26/192216 ??? enoxaparin (LOVENOX) syringe 40 mg, 40 mg, subcutaneous, Daily-2100, Amy Chun MD, 40 mg at 05/26/192217 ??? gabapentin (NEURONTIN) capsule 300 mg, 300 mg, oral, TID, Amy Chun MD, 300 mgat 05/26/192216 ??? HYDROmorphone in 0.9% sodium chloride (DILAUDID) 20 mg/100 mL (0.2 mg/mL) infusion (premix), , intravenous, Continuous, Adri Mccloud NP, 20 mg at 05/26/19 1425 ??? ketorolac (TORADOL) 15 mg/mL injection 15 mg, 15 mg, intravenous, Q6H, Amy Chun MD, 15 mg at 05/27/19 0350 ??? Lactated Ringer's (LR) infusion, 75 mL/hr, intravenous, Continuous, Amy Chun MD, Last Rate: 75 mL/hr at 05/27/19 0430, 75 mL/hr at 05/27/19 0430 ??? naloxone (NARCAN) 0.4 mg/mL injection 0.04-0.4 mg, 0.04-0.4 mg, intravenous, Q10 Min PRN, Adri Mccloud NP ??? naloxone (NARCAN) 0.4 mg/mL injection 0.04-0.4 mg, 0.04-0.4 mg, intravenous, Once PRN, Amy Chun MD ??? ondansetron (ZOFRAN) injection 4 mg, 4 mg, intravenous, Q6H PRN, Amy Chun MD ??? pravastatin (PRAVACHOL) tablet 20 mg, 20 mg, oral, QAM, Amy Chun MD ??? senna (SENOKOT) tablet 1 tablet, 1 tablet, oral, BID, 1 tablet at 05/26/192216 OR senna 1.76 mg/mL syrup 8.8 mg, 8.8 mg, feeding tube, BID, Amy Chun MD ??? sodium chloride 0.9% flush 0.5-20 mL, 0.5-20 mL, intra-catheter, Q8H MERLENE, Amy Chun MD, 10 mL at 05/27/19 0545 ??? sodium chloride 0.9% flush 0.5-20 mL, 0.5-20 mL, intra-catheter, PRN, Amy Chun MD ??? sodium chloride 0.9% solution 1,000 mL, 1,000 mL, intra-catheter, Continuous, Amy Chun MD, 1,000 mL at 05/26/19 2128 Objective Physical Exam: Constitutional: He is oriented to person, place, and time. He appears well-developed. Eyes: Pupils are equal, round, and reactive to light. Conjunctivae are normal. Neck: Normal range of motion. Cardiovascular: Normal rate and regular rhythm. Pulmonary/Chest: Effort normal and breath sounds normal. CT in place with small air leak. Incision is clean dry and intact Abdominal: Soft. He exhibits no distension. There is no abdominal tenderness. Musculoskeletal: Normal range of motion. Neurological: He is alert and oriented to person, place, and time. Skin: Skin is warm. Psychiatric: He has a normal mood and affect. Lab/Radiology/Diagnostic Review: Laboratory review: Lab results in the last 24 hours: Recent Results (from the past 24 hour(s)) CBC without differential Collection Time: 05/26/19 7:49 PM Result Value Ref Range WBC 25.0 (H) 3.8 - 9.9 K/cumm Hgb 12.0 (L) 13.0 - 17.5 g/dL Hct 37.1 (L) 38.9 - 50.3 % Plt 288 150 - 400 K/cumm MPV 11.6 9.1 - 12.3 fL RBC 4.24 (L) 4.30 - 5.80 M/cumm MCV 87.5 81.3 - 96.4 fL MCH 28.3 27.1 - 33.3 pg MCHC 32.3 32.3 - 35.7 g/dL RDW CV 13.9 11.1 - 14.9 % RDW SD 45.0 35.7 - 48.1 fL NRBC abs 0.00 0.00 - 0.01 K/cumm Basic metabolic panel Collection Time: 05/26/19 7:49 PM Result Value Ref Range Sodium 139 135 - 145 mmol/L Potassium, pl 3.8 3.3 - 4.9 mmol/L Chloride 110 97 - 110 mmol/L CO2 21 (L) 22 - 32 mmol/L Anion gap 8 2 - 15 mmol/L BUN 11 8 - 25 mg/dL Creatinine 0.68 (L) 0.80 - 1.30 mg/dL Glucose 155 70 - 199 mg/dL Calcium 9.1 8.5 - 10.3 mg/dL Blood gas, arterial Collection Time: 05/26/19 11:14 PM Result Value Ref Range pH, Art POC 7.32 (L) 7.35 - 7.45 PCO2, Arterial 41 35 - 45 mmHg PO2, Arterial 77 (L) 83 - 108 mmHg HCO3 Art (Calculated) 22 20 - 30 mmol/L BE, art -5 mmol/L O2 Sat Art (Measured) 95 90 - 95 % CBC without differential Collection Time: 05/26/19 11:15 PM Result Value Ref Range WBC 24.3 (H) 3.8 - 9.9 K/cumm Hgb 11.6 (L) 13.0 - 17.5 g/dL Hct 35.9 (L) 38.9 - 50.3 % Plt 291 150 - 400 K/cumm MPV 11.7 9.1 - 12.3 fL RBC 4.16 (L) 4.30 - 5.80 M/cumm MCV 86.3 81.3 - 96.4 fL MCH 27.9 27.1 - 33.3 pg MCHC 32.3 32.3 - 35.7 g/dL RDW CV 13.8 11.1 - 14.9 % RDW SD 43.8 35.7 - 48.1 fL NRBC abs 0.00 0.00 - 0.01 K/cumm Basic metabolic panel Collection Time: 05/26/19 11:15 PM Result Value Ref Range Sodium 136 135 - 145 mmol/L Potassium, pl 4.0 3.3 - 4.9 mmol/L Chloride 106 97 - 110 mmol/L CO2 23 22 - 32 mmol/L Anion gap 7 2 - 15 mmol/L BUN 11 8 - 25 mg/dL Creatinine 0.66 (L) 0.80 - 1.30 mg/dL Glucose 166 70 - 199 mg/dL Calcium 9.0 8.5 - 10.3 mg/dL Image Review: XR Chest 1 View - in ICU Narrative: EXAMINATION: 1 view chest radiograph Impression: Comparison is made to same day intraoperative chest radiograph. Interval extubation. A right thoracostomy tube is redemonstrated. Interval resolution of the previously demonstrated right pneumothorax. No left pneumothorax. Small lung volumes are noted bilaterally resulting vascular crowding. Mild left basilar retrocardiac elective basis is noted. No pulmonary edema. Apparent widening of the mediastinal silhouette is likely artifactual secondary to portable technique and lordotic positioning. Subcutaneous emphysema is noted along the right lateral chest wall. Dictated by: Ilan Gutierrez The radiology attending physician has personally reviewed this study, and had reviewed and/or edited this written report and agrees with it. Electronically signed by: Connor Lin M.D. XR Chest 1 View Narrative: EXAMINATION: 1 view chest radiograph Impression: Comparison is made to prior chest radiographs dated 05/06/2019.. There is selective intubation of the left mainstem bronchus. A right chest tube is seen. There is a large right pneumothorax with associated atelectasis of the right lung. The right lung apex and mediastinum are obscured by overlying soft tissue. No retained needle is seen within the limitations of the study. The Non Critical results were discussed with Dr. Canchola by Dr. Becky Olivarez on 05/26/2019 at 1:50 PM. Dictated by: Becky Olivarez M.D. The radiology attending physician has personally reviewed this study, and had reviewed and/or edited this written report and agrees with it. Electronically signed by: Connor Lin M.D. Vitals: 24hr Min/Max: Temp Min: 36.2 ??C (97.2 ??F) Max: 36.6 ??C (97.9 ??F) Pulse Min: 62 Max: 86 BP Min: 99/57 Max: 170/111 Resp Min: 8 Max: 30 SpO2 Min: 90 % Max: 98 % Most Recent : Vitals: 05/27/19 0500 BP: 117/65 Pulse: 63 Resp: 14 Temp: SpO2: 92% I/O last 2 completed shifts: In: 1600 [P.O.:1600] Out: 2393 [Urine:1605; Chest Tube:788] No intake/output data recorded. 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 Diet: ADAT Pain control: Epidural, KILN STACKER. Increase epidural rate. IVF: LR at 75 IS Ancef Q8 for 24 hours Bowel reg DVT prophylaxis CT to -20 D/c beach, void trial D/c A-line, d/c OU status AM labs Will consider restarting home Amlodipine if continues to be hypertensive after increasing the epidural rate. John Fernando Cosigned by Jasper Canchola MD at 05/27/2019 9:35 AM CDT * Myrtle Haji MD - 05/26/2019 9:45 PM CDT POST-OP NOTE Subjective: Patient ID: Mp Kulkarni is a 54 y.o. male s/p Right thoracotomy RLL lobectomy with lymph node dissection. Patient was transferred from the PACU on 2L nasal canula and hemodynamically stable. Patient reports that his pain is well controlled. Denies having shortness of breath. Allergies as of 05/25/2019 ??? (No Known Allergies) Current Facility-Administered Medications: ??? acetaminophen (TYLENOL) tablet 650 mg, 650 mg, oral, Q4H PRN, Amy Chun MD, 650 mg at 05/26/192002 ??? acetaZOLAMIDE ER (DIAMOX SEQUAL) extended release capsule 500 mg, 500 mg, oral, BID, Amy Chun MD ??? bupivacaine preservative free in 0.9% sodium chloride 250 mL 0.1 % (1,000 mcg/mL), , epidural, Continuous, Amy Chun MD, Last Rate: 8 mL/hr at 05/26/19 1400 ??? ceFAZolin (ANCEF) 2,000 mg/20 mL in sterile water (premix) 2,000 mg, 2,000 mg, intravenous, Q8H, Amy Chun MD, Last Rate: 400 mL/hr at 05/26/19 1813, 2,000 mg at 05/26/19 1813 ??? cyclobenzaprine (FLEXERIL) tablet 10 mg, 10 mg, oral, TID, Amy Chun MD ??? enoxaparin (LOVENOX) syringe 40 mg, 40 mg, subcutaneous, Daily-2100, Amy Chun MD ??? gabapentin (NEURONTIN) capsule 300 mg, 300 mg, oral, TID, Amy Chun MD ??? HYDROmorphone in 0.9% sodium chloride (DILAUDID) 20 mg/100 mL (0.2 mg/mL) infusion (premix), , intravenous, Continuous, Adri Mccloud NP, 20 mg at 05/26/19 1425 ??? ketorolac (TORADOL) 15 mg/mL injection 15 mg, 15 mg, intravenous, Q6H, Amy Chun MD ??? Lactated Ringer's (LR) infusion, 75 mL/hr, intravenous, Continuous, Amy Chun MD, Last Rate: 75 mL/hr at 05/26/19 1458, 75 mL/hr at 05/26/19 1458 ??? naloxone (NARCAN) 0.4 mg/mL injection 0.04-0.4 mg, 0.04-0.4 mg, intravenous, Q10 Min PRN, Adri Mccloud NP ??? naloxone (NARCAN) 0.4 mg/mL injection 0.04-0.4 mg, 0.04-0.4 mg, intravenous, Once PRN, Amy Chun MD ??? ondansetron (ZOFRAN) injection 4 mg, 4 mg, intravenous, Q6H PRN, Amy Chun MD ??? [START ON 05/27/2019] pravastatin (PRAVACHOL) tablet 20 mg, 20 mg, oral, QAM, Amy Chun MD ??? senna (SENOKOT) tablet 1 tablet, 1 tablet, oral, BID OR senna 1.76 mg/mL syrup 8.8 mg, 8.8 mg, feeding tube, BID, Amy Chun MD ??? sodium chloride 0.9% flush 0.5-20 mL, 0.5-20 mL, intra-catheter, Q8H MERLENE, Amy Chun MD ??? sodium chloride 0.9% flush 0.5-20 mL, 0.5-20 mL, intra-catheter, PRN, Amy Chun MD ??? sodium chloride 0.9% solution 1,000 mL, 1,000 mL, intra-catheter, Continuous, Amy Chun MD, 1,000 mL at 05/26/192127 Past Medical History: Diagnosis Date ??? IIH (idiopathic intracranial hypertension) Past Surgical History: Procedure Laterality Date ??? APPENDECTOMY ??? COLONOSCOPY ??? TONSILLECTOMY Review of Systems Constitutional: Negative. HENT: Negative. Eyes: Negative. Respiratory: Negative. Cardiovascular: Negative. Gastrointestinal: Negative. Endocrine: Negative. Genitourinary: Negative. Musculoskeletal: Negative. Neurological: Negative. Hematological: Negative. Psychiatric/Behavioral: Negative. Objective: Vitals: 05/26/191999 BP: Pulse: 77 Resp: 21 Temp: SpO2: 92% Physical Exam Constitutional: He is oriented to person, place, and time. He appears well-developed. Eyes: Pupils are equal, round, and reactive to light. Conjunctivae are normal. Neck: Normal range of motion. Cardiovascular: Normal rate and regular rhythm. Pulmonary/Chest: Effort normal and breath sounds normal. CT in place with small air leak. Incision is clean dry and intact Abdominal: Soft. He exhibits no distension. There is no abdominal tenderness. Musculoskeletal: Normal range of motion. Neurological: He is alert and oriented to person, place, and time. Skin: Skin is warm. Psychiatric: He has a normal mood and affect. 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 Diet: CLD, ADAT Pain control: Epidural, KILN STACKER, Toradol IVF: LR at 75 IS Ancef Q8 for 24 hours Bowel reg DVT prophylaxis CT to -20 documented in this encounter H&P Notes * Jasper Canchola MD - 05/26/2019 7:03 AM CDT I have reviewed the H&P, examined the patient, and endorse the findings as written. Plan of Care : Based on the above findings, I consider Mp Kulkarni to be an acceptable riskfor : Procedure(s): THORACOTOMY LOBECTOMY / lymph node disection Source Note - Ishna Pitts MD - 2019 1:16 PM ELECTRICITY TRADER Images from the original note were not included. [facility] Preoperative Assessment and Planning Preoperative Evaluation Record Evaluation type/location: [facility] Planned procedure site: [facility] (Pods 2/3/5/[employer] [facility]PER) Date: 05/13/19 Anesthesia Evaluation Mp Kulkarni is a 54 y.o. male Procedure(s): MEDIASTINOSCOPY CERVICAL Pre-Op Diagnosis Codes: * Lung nodule [R91.1] HISTORY HPI Mp Kulkarni is a 54 y.o. male who is being evaluated prior to undergoing mediastinoscopy for lung nodule/neuroendocrine tumor . Past Medical History Neurological Comments: intracrainal htn Cardiovascular + Other arrhythmia (IRBBB) - RBBB. Musculoskeletal/Pain + Headaches (improved with diamox) Pertinent negatives: chronic pain Endocrine / Other + Obesity (BMI >30)- morbid obesity (BMI>40). + Cancer history- current cancer. Cancer type: lung ca. Functional Capacity Functional capacity: 4-6 METs Comments: Able to climb 2 flights or walk 4 blocks without sob or cp Review of Systems Pertinent negatives: productive cough; wheezing; SOB; recent cold/flu; fever; chest pain; palpitations; orthopnea; pedal edema; PND; heavy menses; Sickle Cell disease/trait; previous transfusion; transfusion reaction; melena/hematochezia; easy bruising; bleeding problems; syncope; dizziness; muscleweakness; chronic pain; numbness/tingling; hard of hearing; vision loss; heartburn; nausea; dysphagia; diarrhea; dentures/partials; chipped/loose teeth; abdominal pain; diaphoresis and no unexpected weight change Comments: Denies palpitations, sweating, flushing, vision changes, diarrhea, abd pain, htn PAT Summary and Plans Cardiac risk classification of planned procedure: intermediate cardiac risk. Preoperative assessment status: lab tests ordered. Initial preoperative evaluation discussed with: Ishan Pitts MD Additional comments: Mp Kulkarni is a 54 y.o. male who is being evaluated prior to undergoing an intermediate cardiac risk surgery. Revised Cardiac Risk Index factors are (none) for a total RCRI of 0 out of 6. Functional capacity is 4-6 METs. Obstructive sleep apnea (LEONOR) screening status is STOP-Bang=4 suggesting moderate risk for LEONOR, bicarbonate value pending. The patient is at elevated risk for obstructive sleep apnea (LEONOR) per STOP-BANG screening questionnaire results. Patient informed of the possibility that they have undiagnosed LEONOR, which may increasetheir risk for perioperative respiratory events. Patient also informed of the possible long-term health problems associated with LEONOR. Because we do not feel that preoperative LEONOR testing is likely tooutweigh the downsides of delaying surgery, we have recommended that the patient talk to their primary doctor or other clinician after surgery about getting tested for LEONOR. Reviewed labs dated 05/05/19 (scanned in media) : BMP and CBC without significant findings Blood bank needs for day of procedure: Type and Screen only Pending labs/tests include: T&S Preoperative evaluation performed by Cherise Adkins NP on 05/13/19 at 1:31 PM. . Follow up note Labs reviewed and are without significant findings. CPAP process complete. Follow-up completed by: Elisabeth Kellogg NP on 05/16/19 at 10:53 AM Patient Active Problem List Diagnosis ??? Right lower lobe pulmonary nodule ??? High grade neuroendocrine carcinoma (CMS/HCC) ??? Lung nodule ??? Primary cancer of right lower lobe of lung (CMS/HCC) Past Medical History: Diagnosis Date ??? IIH (idiopathic intracranial hypertension) Past Surgical History: Procedure Laterality Date ??? APPENDECTOMY No Known Allergies Med List Status: Nurse Complete Set By: Rosa M Saravia RN at 2019 1:28 PM Taking? Last Dose Start Date End Date Provider acetaZOLAMIDE ER (DIAMOX SEQUAL) 500 mg capsule -- -- Historical Provider, amLODIPine (NORVASC) 10 mg tablet 04/10/19 -- Historical Provider, cetirizine (ZyrTEC) 10 mg tablet -- -- Historical Provider, LORazepam (ATIVAN) 0.5 mg tablet -- -- Historical Provider, pravastatin (PRAVACHOL) 20 mg tablet 04/10/19 -- Historical Provider, Current Outpatient Medications: ??? acetaZOLAMIDE ER (DIAMOX SEQUAL) 500 mg capsule ??? amLODIPine (NORVASC) 10 mg tablet ??? cetirizine (ZyrTEC) 10 mg tablet ??? LORazepam (ATIVAN) 0.5 mg tablet ??? pravastatin (PRAVACHOL) 20 mg tablet Social History Tobacco Use Smoking Status Never Smoker Smokeless Tobacco Never Used Substance and Sexual Activity Alcohol Use Yes Comment: social Substance and Sexual Activity Drug Use Never Family History Problem Relation Age of Onset ??? Cancer Mother ??? Heart disease Father ??? Cancer Father ??? Cancer Sister PAT Physical Exam Airway Exam: Mallampati: II Cervical ROM: FROM TM distance: 3 Jaw ROM: full Cardiovascular Exam: Rate: regular Rhythm: regular Murmur: DOMINGO and grade I/ Negative for peripheral edema (Gibson LSB) Pulmonary Exam: LCTA, bilat EENT Exam: trachea midline Dental Exam: Appears intact Abdominal exam: Abdomen is soft. Bowel sounds are present. Current state: Patient's current state is cooperative and interactive. Vitals: 05/13/19 1325 05/13/19 1328 BP: 131/85 133/82 Pulse: 75 SpO2: 100% PT: 05/05/2019: 13.1 SECONDS INR: 05/05/2019: 0.96 APTT: 05/05/2019: 32 SECONDS Hgb A1C: No results found for requested labs within last 720 hours. CBC RBC: 05/05/2019: 4.62 x10 6/ul RDW: 05/05/2019: 14.2 % MCHC: 05/05/2019: 32.3 g/dl MCH: 05/05/2019: 28.4 pg MCV: 05/05/2019: 87.7 fl Hct: 05/05/2019: 40.5 % Hgb: 05/05/2019: 13.1 g/dL WBC: 05/05/2019: 9.4 X10 3/ul MPV: 05/05/2019: 11.7 fl Platelets: 05/05/2019: 292 x10 3/ul RDW CV: No results found for requested labs within last 720 hours. RDW Sd: No results found for requested labs within last 720 hours. BMP Glucose: 05/05/2019: 104 mg/dL* Calcium: 05/05/2019: 9.4 mg/dL Sodium: 05/05/2019: 139 mmol/L Potassium: 05/05/2019: 3.8 mmol/L CO2: 05/05/2019: 22 mmol/L Chloride: 05/05/2019: 107 mmol/L BUN: No results found for requested labs within last 720 hours. Creatinine: 05/05/2019: 0.8 mg/dL STOP-Bang Total Score: 4 Enzo index score: 100 DOS Physical Exam Medical history, medications, and allergies reviewed. Attestation: This PAT evaluation 04/12/2019. Airway Exam: Mallampati: II Cervical ROM: FROM TM distance: 3 Jaw ROM: full Cardiovascular Exam: Rate: regular Rhythm: regular Negative for Murmur Negative for peripheral edema Pulmonary Exam: LCTA, bilat EENT Exam: trachea midline Dental Exam: Appears intact Current state: Patient's current state is cooperative. Anesthesia Plan ASA 3 Planned anesthesia: General Team communication plan: oral ET tube Induction: Induction: intravenous. Postoperative Plan: No plan for postoperative opioid use. No postoperative mechanical ventilation intended. Patient's planned disposition post procedure is Outpatient. Informed Consent: Discussed plan with resident. Anesthesia plan and risks discussed with patient. Plan and Consent Comments: Possible arterial line. Consent and Attending signature: I and/or my designee have discussed the anesthesia plan, benefits, possible alternatives, parental presence at time of induction (if indicated), and clinically relevant risks that may include dental injury, unintentional awareness, and/or other complications. The patient and/or parent/legal guardian understand, and agree to proceed. All questions answered. TRICITY TRADER TRICITY TRADER TRICITY TRADER documented in this encounter Procedure Notes * Myrtle Haji MD - 05/29/2019 8:23 AM CDT Chest Tube Removal Procedure Note Procedure Details The correct patient's clinical information, tests, and/or imaging results relevant to chest tube removal were reviewed prior to procedure. Chest tube removal was discussed with the Supervising MD. Chest tube removal explained to patient. Verbalized understanding. Soap and water hand washing or use of alcohol-based waterless hand cleanser was performed before and after the procedure. Patient was positioned supine . Patient identification was verified. Chest tube Removed: 1 Chest tube(s) Remaining in place: 0 Site Sutures Present: Yes Chest tube intact: Yes Complications: None; patient tolerated the procedure well. Condition: stable Recommendations Post pull chest x-ray ordered and pending. Notify the staff if you develop sudden shortness of breath or chest pain or if you notice swelling develop. Keep occlusive dressing in place with Vaseline gauze and 4x4 for 48 hours. OK for nursing to change dressing if saturated. After 48 hours, dressing may be removed and patient may shower. Site sutures can be removed in 7-10 days by any MD, RN TELEHEALTH, irrigation tax assessor collector. Myrtle Haji MD documented in this encounter Nursing Notes * Imelda Ramesh RN - 05/30/2019 11:35 AM CDT Patient awaiting sign out from anesthesia. VSS as charted. He is awake, alert and oriented and denying pain. Will continue to monitor until transport back to room . 1235 Patient about to transport back to 74, but was stopped as per pain management team who wantsto d/c his epidural. Will monitor. documented in this encounter Miscellaneous Notes * Plan of Care - Jessy Arreguin PTA - 05/30/2019 4:44 PM CDT Problem: PT Misc Goal: PT STG - Misc 1 Description: Pt to be independent with post op thoracic surgery exercise program. Outcome: Progressing * Brief Op Note - Amy Chun MD - 05/30/2019 10:28 AM CDT Operative Progress Note Surgical Team: Surgeon(s) and Role: * Jasper Canchola MD - Primary * Amy Chun MD - Resident - Assisting * Irina Hall MD PhD - Resident - Observing Anesthesiologist: Sam Castro MD HELP DESK ENGINEER: Tirso Turner CRNA Apprise Counselor: Matti Chau RN Scrub: Rik Fernandez RN Apprise Counselor Second: Rickey Booker RN DATE OF SURGERY : 05/30/2019 Preoperative Diagnosis: Pre-op Diagnosis * Malignant neoplasm of lower lobe of right lung (CMS/HCC) [C34.31] Postoperative Diagnosis: Post-op Diagnosis * Malignant neoplasm of lower lobe of right lung (CMS/HCC) [C34.31] Procedure(s): Procedure(s) (LRB): BRONCHOSCOPY FLEXIBLE (N/A) Operative Findings: Anastomosis healthy appearing Estimated Blood Loss: No blood loss documented. Intraoperative Fluids: 50 mls Specimens: No specimen collected in procedure Implants: Nothing was implanted during the procedure Blood/Blood Products Transfused: 0 mls Complications: none Condition on Discharge from the operating room was stable Amy Chun MD Date: 05/30/2019 Time: 10:28 AM Was a Resident involved in this case?:yes Cosigned by Jasper Canchola MD at 05/30/2019 12:21 PM CDT * Plan of Care - Matteo Hernandez RN - 05/30/2019 8:32 AM CDT Problem: Health Behavior: Goal: Understanding of discharge needs will improve Outcome: Progressing Problem: Activity: Goal: Ability to tolerate increased activity will improve Outcome: Progressing Goal: Mobility will improve Outcome: Progressing Problem: Bowel/Gastric: Goal: Gastrointestinal status for postoperative course will improve Outcome: Progressing Problem: Cognitive: Goal: Will regain or maintain usual level of consciousness Outcome: Progressing Problem: Lack of Knowledge: Goal: Knowledge of the prescribed therapeutic regimen will improve Outcome: Progressing Problem: Fluid Volume: Goal: Ability to maintain a balanced intake and output will improve Outcome: Progressing Problem: Health Behavior: Goal: Identification of resources available to assist in meeting health care needs will improve Outcome: Progressing Problem: Nutritional: Goal: Ability to attain and maintain optimal nutritional status will improve Outcome: Progressing Problem: Physical Regulation: Goal: Ability to maintain clinical measurements within normal limits will improve Outcome: Progressing Goal: Postoperative complications will be avoided or minimized Outcome: Progressing Problem: Respiratory: Goal: Ability to maintain adequate ventilation will improve Outcome: Progressing Goal: Respiratory status will improve Outcome: Progressing Problem: Safety: Goal: Ability to remain free from injury will improve Outcome: Progressing Problem: Sensory: Goal: Pain level will decrease Outcome: Progressing Problem: Skin Integrity: Goal: Risk for impaired skin integrity will decrease Outcome: Progressing Goal: Evidence of wound healing without infection will improve Outcome: Progressing Problem: Tissue Perfusion: Goal: Risk of venous thrombosis will decrease Outcome: Progressing Problem: Urinary Elimination: Goal: Will remain free from infection Outcome: Progressing Goal: Ability to achieve and maintain adequate urine output will improve Outcome: Progressing Goals: Clinical Goals for the Shift: pain management Summary: Administer meds as ordered * Op Note - Jasper Canchola MD - 05/30/2019 12:00 AM CDT Preoperative Diagnosis Right main bronchoplasty. Postoperative Diagnosis Right main bronchoplasty. Operative Procedure Diagnostic flexible bronchoscopy. Surgeon Jasper Canchola MD Electronics Tester Amy Chun MD Anesthesia General. Clinical Note This patient had undergone a right lower lobectomy and radical mediastinal lymph node dissection 5 days previously. 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 In order to obtain a complete resection of all mediastinal nodes and gain appropriate anterior exposure, I divided the right main bronchus and reimplanted it after the node dissection was complete. Prior to discharge, I wanted to examine the anastomosis and ensure that it was healing uneventfully. Operative Procedure The patient was brought to the operating room, anesthetized. A laryngeal mask airway was placed. Flexible bronchoscope was advanced. The right main bronchial anastomosis was healing nicely. There wasno evidence of separation. It was widely patent. The right lower lobe bronchial stump was intact. The right middle lobe bronchus was somewhat narrowed at its orifice as a result of the edema from thebronchial stump closure. However, the appearance of the airway looked quite acceptable. The patientwas awakened, extubated and transferred to the recovery room in stable condition. I was present throughout the entire operative procedure and there were no complications noted. Job ID/VF Job ID: [id number] * Plan of Care - Axel Aguirre RN - 05/29/2019 11:15 PM CDT Goals: Clinical Goals for the Shift: pain management; pulmonary hygiene; I/O; monitor VS; NPO at midnight Summary: Clinical Goals for the Shift: pain management; pulmonary hygiene; I/O; monitor VS; NPO at midnight Problem: Health Behavior: Goal: Understanding of discharge needs will improve Outcome: Progressing Problem: Activity: Goal: Ability to tolerate increased activity will improve Outcome: Progressing Goal: Mobility will improve Outcome: Progressing Problem: Bowel/Gastric: Goal: Gastrointestinal status for postoperative course will improve Outcome: Progressing Problem: Cognitive: Goal: Will regain or maintain usual level of consciousness Outcome: Progressing Problem: Lack of Knowledge: Goal: Knowledge of the prescribed therapeutic regimen will improve Outcome: Progressing Problem: Fluid Volume: Goal: Ability to maintain a balanced intake and output will improve Outcome: Progressing Problem: Health Behavior: Goal: Identification of resources available to assist in meeting health care needs will improve Outcome: Progressing Problem: Nutritional: Goal: Ability to attain and maintain optimal nutritional status will improve Outcome: Progressing Problem: Physical Regulation: Goal: Ability to maintain clinical measurements within normal limits will improve Outcome: Progressing Goal: Postoperative complications will be avoided or minimized Outcome: Progressing Problem: Respiratory: Goal: Ability to maintain adequate ventilation will improve Outcome: Progressing Goal: Respiratory status will improve Outcome: Progressing Problem: Safety: Goal: Ability to remain free from injury will improve Outcome: Progressing Problem: Sensory: Goal: Pain level will decrease Outcome: Progressing Problem: Skin Integrity: Goal: Risk for impaired skin integrity will decrease Outcome: Progressing Goal: Evidence of wound healing without infection will improve Outcome: Progressing Problem: Tissue Perfusion: Goal: Risk of venous thrombosis will decrease Outcome: Progressing Problem: Urinary Elimination: Goal: Will remain free from infection Outcome: Progressing Goal: Ability to achieve and maintain adequate urine output will improve Outcome: Progressing * Plan of Dillan - Mp Matos RN - 05/29/2019 10:46 AM CDT Problem: Health Behavior: Goal: Understanding of discharge needs will improve Outcome: Progressing Problem: Activity: Goal: Ability to tolerate increased activity will improve Outcome: Progressing Goal: Mobility will improve Outcome: Progressing Problem: Bowel/Gastric: Goal: Gastrointestinal status for postoperative course will improve Outcome: Progressing Problem: Cognitive: Goal: Will regain or maintain usual level of consciousness Outcome: Progressing Problem: Lack of Knowledge: Goal: Knowledge of the prescribed therapeutic regimen will improve Outcome: Progressing Problem: Fluid Volume: Goal: Ability to maintain a balanced intake and output will improve Outcome: Progressing Problem: Health Behavior: Goal: Identification of resources available to assist in meeting health care needs will improve Outcome: Progressing Problem: Nutritional: Goal: Ability to attain and maintain optimal nutritional status will improve Outcome: Progressing Problem: Physical Regulation: Goal: Ability to maintain clinical measurements within normal limits will improve Outcome: Progressing Goal: Postoperative complications will be avoided or minimized Outcome: Progressing Problem: Respiratory: Goal: Ability to maintain adequate ventilation will improve Outcome: Progressing Goal: Respiratory status will improve Outcome: Progressing Problem: Safety: Goal: Ability to remain free from injury will improve Outcome: Progressing Problem: Sensory: Goal: Pain level will decrease Outcome: Progressing Problem: Skin Integrity: Goal: Risk for impaired skin integrity will decrease Outcome: Progressing Goal: Evidence of wound healing without infection will improve Outcome: Progressing Problem: Tissue Perfusion: Goal: Risk of venous thrombosis will decrease Outcome: Progressing Problem: Urinary Elimination: Goal: Will remain free from infection Outcome: Progressing Goal: Ability to achieve and maintain adequate urine output will improve Outcome: Progressing Goals: Clinical Goals for the Shift: Pain Management, Pulmonary Hygiene, OOB as toleratede Summary: Goals have been reviewed with PT and PT progressing in all ashraf * Plan of Efraín Messina RN - 05/29/2019 12:24 AM CDT Problem: Health Behavior: Goal: Understanding of discharge needs will improve Outcome: Progressing Problem: Activity: Goal: Ability to tolerate increased activity will improve Outcome: Progressing Goal: Mobility will improve Outcome: Progressing Problem: Bowel/Gastric: Goal: Gastrointestinal status for postoperative course will improve Outcome: Progressing Problem: Cognitive: Goal: Will regain or maintain usual level of consciousness Outcome: Progressing Problem: Lack of Knowledge: Goal: Knowledge of the prescribed therapeutic regimen will improve Outcome: Progressing Problem: Fluid Volume: Goal: Ability to maintain a balanced intake and output will improve Outcome: Progressing Problem: Health Behavior: Goal: Identification of resources available to assist in meeting health care needs will improve Outcome: Progressing Problem: Nutritional: Goal: Ability to attain and maintain optimal nutritional status will improve Outcome: Progressing Problem: Physical Regulation: Goal: Ability to maintain clinical measurements within normal limits will improve Outcome: Progressing Goal: Postoperative complications will be avoided or minimized Outcome: Progressing Problem: Respiratory: Goal: Ability to maintain adequate ventilation will improve Outcome: Progressing Goal: Respiratory status will improve Outcome: Progressing Problem: Safety: Goal: Ability to remain free from injury will improve Outcome: Progressing Problem: Sensory: Goal: Pain level will decrease Outcome: Progressing Problem: Skin Integrity: Goal: Risk for impaired skin integrity will decrease Outcome: Progressing Goal: Evidence of wound healing without infection will improve Outcome: Progressing Problem: Tissue Perfusion: Goal: Risk of venous thrombosis will decrease Outcome: Progressing Problem: Urinary Elimination: Goal: Will remain free from infection Outcome: Progressing Goal: Ability to achieve and maintain adequate urine output will improve Outcome: Progressing Goals: Clinical Goals for the Shift: Pain management; pulmonary hygiene; sleep * Assessment & Plan Note - John Fernando MD - 05/28/2019 11:15 AM CDTAssociated Problem(s): LEIDA (acute kidney injury) (CMS/HCC) (HCC) Elevated Cr of 1.35. Hyponatremia to 127 Restart acetazolamide. AM BMP * Significant Event - Bright Farris MD - 05/28/2019 10:11 AM CDT Spoke with primary team regarding patient's diamox. Confirmed that he likely has IIH based off of chart review showing that he had an LP with opening pressure of 28, low grade papilledema, and normalMRI/MRV. Because the patient has an LEIDA, it is reasonable to hold diamox for 1-2 days while ensuring adequate hydration. As of now, the patient does not have headaches, diplopia, or vision changes. If there are any concerns about worsening of his IIH (I.e. headaches, vision changes, diplopia) now that diamox is held, I instructed them to call us back for formal evaluation. Primary team verbalized understanding and agreed that they do not need a formal consult at this time. * Plan of Care - Du Anderson RN - 05/28/2019 8:00 AM CDT Goals: Clinical Goals for the Shift: Pain management; Pulmonary hygiene; Monitor VS and I/Os; OOB as tolerated; Ambulation; Transition to PO pain meds; Stop KILN STACKER Problem: Health Behavior: Goal: Understanding of discharge needs will improve Outcome: Progressing Problem: Activity: Goal: Ability to tolerate increased activity will improve Outcome: Progressing Goal: Mobility will improve Outcome: Progressing Problem: Bowel/Gastric: Goal: Gastrointestinal status for postoperative course will improve Outcome: Progressing Problem: Cognitive: Goal: Will regain or maintain usual level of consciousness Outcome: Progressing Problem: Lack of Knowledge: Goal: Knowledge of the prescribed therapeutic regimen will improve Outcome: Progressing Problem: Fluid Volume: Goal: Ability to maintain a balanced intake and output will improve Outcome: Progressing Problem: Health Behavior: Goal: Identification of resources available to assist in meeting health care needs will improve Outcome: Progressing Problem: Nutritional: Goal: Ability to attain and maintain optimal nutritional status will improve Outcome: Progressing Problem: Physical Regulation: Goal: Ability to maintain clinical measurements within normal limits will improve Outcome: Progressing Goal: Postoperative complications will be avoided or minimized Outcome: Progressing Problem: Respiratory: Goal: Ability to maintain adequate ventilation will improve Outcome: Progressing Goal: Respiratory status will improve Outcome: Progressing Problem: Safety: Goal: Ability to remain free from injury will improve Outcome: Progressing Problem: Sensory: Goal: Pain level will decrease Outcome: Progressing Problem: Skin Integrity: Goal: Risk for impaired skin integrity will decrease Outcome: Progressing Goal: Evidence of wound healing without infection will improve Outcome: Progressing Problem: Tissue Perfusion: Goal: Risk of venous thrombosis will decrease Outcome: Progressing Problem: Urinary Elimination: Goal: Will remain free from infection Outcome: Progressing Goal: Ability to achieve and maintain adequate urine output will improve Outcome: Progressing Summary: * Plan of Care - Axel Aguirre RN - 05/27/2019 9:25 PM CDT Goals: Clinical Goals for the Shift: pain management; pulmonary hygiene; I/O; monitor VS; Summary: Problem: Health Behavior: Goal: Understanding of discharge needs will improve Outcome: Progressing Problem: Activity: Goal: Ability to tolerate increased activity will improve Outcome: Progressing Goal: Mobility will improve Outcome: Progressing Problem: Bowel/Gastric: Goal: Gastrointestinal status for postoperative course will improve Outcome: Progressing Problem: Cognitive: Goal: Will regain or maintain usual level of consciousness Outcome: Progressing Problem: Lack of Knowledge: Goal: Knowledge of the prescribed therapeutic regimen will improve Outcome: Progressing Problem: Fluid Volume: Goal: Ability to maintain a balanced intake and output will improve Outcome: Progressing Problem: Health Behavior: Goal: Identification of resources available to assist in meeting health care needs will improve Outcome: Progressing Problem: Nutritional: Goal: Ability to attain and maintain optimal nutritional status will improve Outcome: Progressing Problem: Physical Regulation: Goal: Ability to maintain clinical measurements within normal limits will improve Outcome: Progressing Goal: Postoperative complications will be avoided or minimized Outcome: Progressing Problem: Respiratory: Goal: Ability to maintain adequate ventilation will improve Outcome: Progressing Goal: Respiratory status will improve Outcome: Progressing Problem: Safety: Goal: Ability to remain free from injury will improve Outcome: Progressing Problem: Sensory: Goal: Pain level will decrease Outcome: Progressing Problem: Skin Integrity: Goal: Risk for impaired skin integrity will decrease Outcome: Progressing Goal: Evidence of wound healing without infection will improve Outcome: Progressing Problem: Tissue Perfusion: Goal: Risk of venous thrombosis will decrease Outcome: Progressing Problem: Urinary Elimination: Goal: Will remain free from infection Outcome: Progressing Goal: Ability to achieve and maintain adequate urine output will improve Outcome: Progressing * Plan of Care - Mp Oleary RRT - 05/27/2019 5:34 PM CDT Patient denies SOB at rest; c/o some pain with coughing. IS [id number]. Administered Acapella/PEP therapy; patient capable of self administered. Plan is to continue IS/PEP bedside. * Plan of Care - Lin Moore RN - 05/27/2019 2:16 PM CDT Goals: Problem: Health Behavior: Goal: Understanding of discharge needs will improve Outcome: Progressing Problem: Activity: Goal: Ability to tolerate increased activity will improve Outcome: Progressing Goal: Mobility will improve Outcome: Progressing Problem: Bowel/Gastric: Goal: Gastrointestinal status for postoperative course will improve Outcome: Progressing Problem: Cognitive: Goal: Will regain or maintain usual level of consciousness Outcome: Progressing Problem: Lack of Knowledge: Goal: Knowledge of the prescribed therapeutic regimen will improve Outcome: Progressing Problem: Fluid Volume: Goal: Ability to maintain a balanced intake and output will improve Outcome: Progressing Problem: Health Behavior: Goal: Identification of resources available to assist in meeting health care needs will improve Outcome: Progressing Problem: Nutritional: Goal: Ability to attain and maintain optimal nutritional status will improve Outcome: Progressing Problem: Physical Regulation: Goal: Ability to maintain clinical measurements within normal limits will improve Outcome: Progressing Goal: Postoperative complications will be avoided or minimized Outcome: Progressing Problem: Respiratory: Goal: Ability to maintain adequate ventilation will improve Outcome: Progressing Goal: Respiratory status will improve Outcome: Progressing Problem: Safety: Goal: Ability to remain free from injury will improve Outcome: Progressing Problem: Sensory: Goal: Pain level will decrease Outcome: Progressing Problem: Skin Integrity: Goal: Risk for impaired skin integrity will decrease Outcome: Progressing Goal: Evidence of wound healing without infection will improve Outcome: Progressing Problem: Tissue Perfusion: Goal: Risk of venous thrombosis will decrease Outcome: Progressing Problem: Urinary Elimination: Goal: Will remain free from infection Outcome: Progressing Goal: Ability to achieve and maintain adequate urine output will improve Outcome: Progressing Summary: Discussed plan with patient and spouse: monitor VS and chest tube, manage pain, increase activity, pulmonary hygiene * Plan of Care - Alexander Johnson RN - 05/27/2019 11:49 AM CDT Plan of care discussed with team during DCAM/rounds/progress notes today. 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 Diet: ADAT Pain control: Epidural, D/c'd KILN STACKER. POPM IS Bowel reg DVT prophylaxis CT to WS D/c'd beach, voiding D/c'd A-line, d/c'd OU status Bronchoscopy today * Plan of Care - Luca Mcguire - 05/27/2019 4:43 AM CDT Problem: Health Behavior: Goal: Understanding of discharge needs will improve Outcome: Progressing Goals: Summary: * Brief Op Note - Amy Chun MD - 05/26/2019 10:00 AM CDT Operative Progress Note Surgical Team: Surgeon(s) and Role: * Jasper Canchola MD - Primary * Myrtle Haji MD - Resident - Assisting * Amy Chun MD - Resident - Assisting Anesthesiologist: Taj Perkins MD Apprise Counselor: Rickey Booker RN; Deniz Livingston RN; Ruy Mcdowell, RN Scrub Relief: Ruy Mcdowell, KAMILA Scrub: ST Froylan DATE OF SURGERY : 05/26/2019 Preoperative Diagnosis: Pre-op Diagnosis * Malignant neoplasm of lower lobe of right lung (CMS/HCC) [C34.31] Postoperative Diagnosis: Post-op Diagnosis * Malignant neoplasm of lower lobe of right lung (CMS/HCC) [C34.31] Procedure(s): Procedure(s) (LRB): THORACOTOMY LOBECTOMY / lymph node disection (Right) Operative Findings: RLL nodule, densely adherent subcarinal lymph node Estimated Blood Loss: No blood loss documented. Intraoperative Fluids: 2500 mls Specimens: ID Type Source Tests Collected by Time A : Station 8 Lymph node Tissue Lymph node, dissection/regional resection SURGICAL PATHOLOGY GeorgeA. Sushant MD 05/26/2019 1025 B : Station 8B Lymph node Tissue Lymph node, dissection/regional resection SURGICAL PATHOLOGY Jasper Canchola MD 05/26/2019 1025 C : Station 12 Lymph node Tissue Lymph node, dissection/regional resection SURGICAL PATHOLOGY Jasper Canchola MD 05/26/2019 1033 D : Station 11 Lymph node Tissue Lymph node, dissection/regional resection SURGICAL PATHOLOGY Jasper Canchola MD 05/26/2019 1044 E : Station 12B Lymph node Tissue Lymph node, dissection/regional resection SURGICAL PATHOLOGY Jasper Canchola MD 05/26/2019 1045 F : Right lower lobe Tissue Lung, total / lobe / segmental, tumor SURGICAL PATHOLOGY Jasper Canchola MD 05/26/2019 1105 G : Station 10 Lymph node Tissue Lymph node, dissection/regional resection SURGICAL PATHOLOGY Jasper Canchola MD 05/26/2019 1115 H : Station 7 Lymph node Tissue Lymph node, dissection/regional resection SURGICAL PATHOLOGY GeorgeA. Sushant MD 05/26/2019 1149 I : Station 7b Lymph node Tissue Lymph node, dissection/regional resection SURGICAL PATHOLOGY Jasper Canchola MD 05/26/2019 1203 J : Station 7c Lymph node Tissue Lymph node, dissection/regional resection SURGICAL PATHOLOGY Jasper Canchola MD 05/26/2019 1212 K : Station 7d Lymph node with pericardium Tissue Lymph node, dissection/regional resection SURGICAL PATHOLOGY Jasper Canchola MD 05/26/2019 1220 L : Station 4r Lymph node Tissue Lymph node, dissection/regional resection SURGICAL PATHOLOGY Jasper Canchola MD 05/26/2019 1224 M : Station 4l Lymph node Tissue Lymph node, dissection/regional resection SURGICAL PATHOLOGY Jasper Canchola MD 05/26/2019 1227 N : Station 4RB Lymph node Tissue Lymph node, dissection/regional resection SURGICAL PATHOLOGY Jasper Canchola MD 05/26/2019 1229 O : Station 2R Lymph node Tissue Lymph node, dissection/regional resection SURGICAL PATHOLOGY Jasper Canchola MD 05/26/2019 1230 Implants: Nothing was implanted during the procedure Blood/Blood Products Transfused: 0 mls Complications: none Condition on Discharge from the operating room was stable Amy Chun MD Date: 05/26/2019 Time: 1:29 PM Was a Resident involved in this case?:yes Cosigned by Jasper Canchola MD at 05/26/2019 2:32 PM CDT * Op Note - Jasper Canchola MD - 05/26/2019 12:00 AM CDT Preoperative Diagnosis 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 Operative Procedures Right thoracotomy, right lower lobectomy, mediastinal lymph node dissection, and right main bronchoplasty, plus modifier 22. Surgeon Jasper Canchola MD Electronics Tester Amy Chun MD, MPHS Anesthesia General. Clinical Note This patient had presented with a lobulated lesion in the medial aspect of his right lower lobe. This was associated with some enlargement of mediastinal lymph nodes. A PET scan demonstrated intense uptake in the right lower lobe lesion as well as in subcarinal lymph nodes. 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 We did not think that this fit with the clinicalpresentation, and therefore approximately 5 days prior to this procedure the patient underwent cervical mediastinoscopy. Multiple biopsies were obtained from subcarinal lymph node. 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 We, therefore, recommended that the patient undergo a right thoracotomy, right lower lobectomy, and mediastinal lymph node dissection. We anticipated that this procedure would be somewhat complicated by the presence of calcified mediastinallymph nodes, the patient's morbid obesity, and the recent dissection from cervical mediastinoscopy. Complexity Statement This operative procedure was made far more complex because of the patient's large size and morbid obesity. We also encountered dense adhesions in the subcarinal space, tethering calcified lymph nodesto the medial wall of the right main bronchus and left main bronchus. Exposure of the anterior subcarinal lymph nodes required division of the right main bronchus so that we could complete the lymph node dissection. I should note also that the adherent calcified lymph nodes mandated resection of the posterior pericardium. All of this additional dissection and reconstruction required an additional2 hours of operating time. Operative Procedure The patient was brought to the operating room, anesthetized. A double-lumen tube was placed. The patient was turned to the left lateral decubitus position and the right chest prepped and draped. A posterolateral thoracotomy was made through the 5th interspace and the posterior aspect of the 6th ribwas shingled. The pleural space was entered. A diaphragm retraction suture was placed. The inferiorligament was divided. During the course of this dissection, nodes from level 9 and 8 were submittedseparately. The inferior pulmonary vein was identified on its posterior aspect tethered superiorly to a markedly calcified adherent lymph node in the subcarinal space. The anterior hilum was exposed to reveal the inferior pulmonary vein. The fissure was opened. Pulmonary artery branches to the lower lobe were identified, encircled, and divided between silk ligatures. Additional lymph nodes along the pulmonary artery to the lower lobe were submitted separately. The posterior aspect of the major fissure was then divided with cautery. The right lower lobe bronchus was then dissected free and divided sharply. The bronchial stump was closed with interrupted 3-0 Vicryl sutures. The specimen was submitted for pathologic examination. We then devoted our attention to the rest of the mediastinal lymph node dissection. The esophagus was mobilized away from the subcarinal space. The azygos vein was divided between silk ligatures. Theproximal aspect of the azygos vein was then elevated to expose the posterior wall of the vena cava.The right main bronchus was exposed on its posterior aspect and the trachea visualized. A large markedly adherent subcarinal lymph node was then removed using sharp dissection. This lymph node was densely adherent to the medial wall of the right and left main bronchus. During this dissection, a small defect was created in the medial wall of the right main bronchus and this was closed with interrupted 3-0 Vicryl sutures. The subcarinal lymph node was then submitted for pathologic examination. However I was not satisfied with the completeness of this resection, particularly on the anterior aspect of the subcarinal space. I attempted to expose this area from an anterior perspective but could not gain satisfactory visualization; therefore, the right main bronchus was divided and retracted anteriorly. This provided excellent exposure of the entire subcarinal space. The adherent marcus tissue anteriorly was resected by including a 4 x 3 cm patch of pericardium. The anterior aspect of the residual subcarinal lymph node was then completely resected and submitted as a separate specimen. The azygos vein was then retracted superiorly. The lateral wall of the trachea was exposed through the previous mediastinoscopy plane and the entire paratracheal lymph node packet was removed, excising lower and upper paratracheal lymph nodes. Hemostasis was achieved. Using a running suture of 4-0 PDS, the right main bronchus was then reanastomosed without any tension. The lung was then reinflated under saline and no air leak was noted. A flexible bronchoscope waspassed through the right limb of the double-lumen tube. We were quite satisfied with the bronchial closure. A single chest tube was brought through a separate stab wound to the apex of the chest. The chest was closed using heavy Vicryl pericostal sutures, fascial sutures of Vicryl with subcuticular closureand a Dermabond dressing. During closure we were informed that the needle count was incorrect; therefore, an on- table chest x-ray was performed which demonstrated no evidence of any retained foreign body. After closure a Dermabond dressing was applied. The patient was then turned supine, awakened, extubated, and transferred to the recovery room in stable condition. Sponge and instrument count were correct. The needle count was off and cleared by an on-table chestx-ray. There were no complications noted. I was present throughout this entire operative procedure. Job ID/VF Job ID: [id number] documented in this encounter Plan of Treatment Not on file documented as of this encounter Procedures Procedure Name Priority Date/Time Associated Diagnosis Comments BRONCHOSCOPY FLEXIBLE 05/30/2019 10:11 AM CDT Malignant neoplasm of lower lobe of right lung (CMS/HCC) BASIC METABOLIC PANEL Timed 05/30/2019 1:12 AM CDT XR CHEST 1 VIEW IP Routine 05/29/2019 10:19 AM CDT CBC WITHOUT DIFFERENTIAL Routine 05/28/2019 10:57 PM CDT BASIC METABOLIC PANEL Routine 05/28/2019 10:57 PM CDT XR CHEST 1 VIEW IP Routine 05/28/2019 5:27 AM CDT CBC WITHOUT DIFFERENTIAL Routine 05/27/2019 9:53 PM CDT BASIC METABOLIC PANEL Routine 05/27/2019 9:53 PM CDT PEP THERAPY Routine 05/27/2019 12:58 PM CDT PEP THERAPY Routine 05/27/2019 12:58 PM CDT CBC WITHOUT DIFFERENTIAL Routine 05/26/2019 11:15 PM CDT BASIC METABOLIC PANEL Routine 05/26/2019 11:15 PM CDT BLOOD GAS, ARTERIAL STAT 05/26/2019 1 1:14 PM CDT CBC WITHOUT DIFFERENTIAL Timed 05/26/2019 7:49 PM CDT BASIC METABOLIC PANEL Timed 05/26/2019 7:49 PM CDT XR CHEST 1 VIEW ED Urgent/IP Urgent 05/26/2019 2:10 PM CDT XR CHEST 1 VIEW IP Routine 05/26/2019 1:45 PM CDT SURGICAL PATHOLOGY Routine 05/26/2019 10 :25 AM CDT Malignant neoplasm of lower lobe of right lung (CMS/HCC) documented in this encounter Results * (ABNORMAL) Basic metabolic panel (05/30/2019 1:12 AM CDT) Sodium 129(L) 135 - 145 mmol/L [facility] Potassium, pl 3.6 3.3 - 4.9 mmol/L [facility] Chloride 98 97 - 110 mmol/L [facility] CO2 23 22 - 32 mmol/L [facility] Anion gap 8 2 - 15 mmol/L [facility] BUN 10 8 - 25 mg/dL [facility] Creatinine 0.70(L) 0.80 - 1.30 mg/dL [facility] Glucose 118 70 - 199 mg/dL [facility] Comment: Interpretive Data Fasting glucose >/= [...] classification and Diagnosis of Diabetes Diabetes Care 2017;40 (Suppl. 1):S11. Current interpretive data was last revised 2017. Calcium 9.0 8.5 - 10.3 mg/dL [facility] Blood specimen (specimen) 05/30/2019 1:12 AM CDT 05/30/2019 1:25 AM CDT Jasper Canchola MD LAB BLOOD ORDERABLES Marianne conde Result [facility] [place] [address] * XR Chest 1 View (05/29/2019 10:19 AM CDT) Anatomical Region Laterality Modality Body, Chest N/A Computed Radiogr aphy 05/30/2019 11:4 1 AM CDT Impressions 05/30/2019 11:52 AM CDT Comparison radiograph dated 05/28/2019. Small lung volumes. ??Interval removal of right-sided chest tube. Right basilar atelectasis is improved. ??Resolution of previously seen small right pleural effusion. ??There is no pneumothorax. ??The cardiomediastinal silhouette is stable. Dictated by: Noah Le M.D. The radiology attending physician has personally reviewed this study, and had reviewed and/or edited this written report and agrees with it. Electronically signed by: Kathy Johnson M.D. Narrative 05/30/2019 11:52 AM CDT EXAMINATION: 1 view chest radiograph Procedure Note Kathy Johnson MD - 05/30/2019 EXAMINATION: 1 view chest radiograph IMPRESSION: Comparison radiograph dated 05/28/2019. Small lung volumes. Interval removal of right-sided chest tube. Right basilar atelectasis is improved. Resolution of previously seen small right pleural effusion. There is no pneumothorax. The cardiomediastinal silhouette is stable. Dictated by: Noah Le M.D. The radiology attending physician has personally reviewed this study, and had reviewed and/or edited this written report and agrees with it. Electronically signed by: Kathy Johnson M.D. Jasper Canchola MD IMG XR PROCEDURES Final R esult * (ABNORMAL) CBC without differential (05/28/2019 10:57 PM CDT) [facility] WBC 20.6(H) 3.8 - 9.9 K/cumm [facility] Hgb 10.2(L) 13.0 - 17.5 g/dL [facility] Hct 30.6(L) 38.9 - 50.3 % [facility] Plt 288 150 - 400 K/cumm [facility] MPV 12.1 9.1 - 12.3 fL [facility] RBC 3.61(L) 4.30 - 5.80 M/cumm [facility] MCV 84.8 81.3 - 96.4 fL [facility] MCH 28.3 27.1 - 33.3 pg [facility] MCHC 33.3 32.3 - 35.7 g/dL [facility] RDW CV 13.9 11.1 - 14.9 % [facility] RDW SD 43.4 35.7 - 48.1 fL [facility] NRBC abs 0.00 0.00 - 0.01 K/cumm [facility] Blood specimen (specimen) 05/28/2019 10:57 PM CDT 05/28/2019 11:22 PM CDT Estrellita Reyes NP LAB BLOOD ORDERABLES Final Result [facility] [place] [address] * (ABNORMAL) Basic metabolic panel (05/28/2019 10:57 PM CDT) Sodium 131(L) 135 - 145 mmol/L [facility] Potassium, pl 3.8 3.3 - 4.9 mmol/L [facility] Chloride 100 97 - 110 mmol/L [facility] CO2 23 22 - 32 mmol/L [facility] Anion gap 8 2 - 15 mmol/L [facility] BUN 16 8 - 25 mg/dL [facility] Creatinine 0.77(L) 0.80 - 1.30 mg/dL [facility] Glucose 125 70 - 199 mg/dL [facility] Comment: Interpretive Data Fasting glucose >/= [...] classification and Diagnosis of Diabetes Diabetes Care 2017;40 (Suppl. 1):S11. Current interpretive data was last revised 2017. Calcium 8.9 8.5 - 10.3 mg/dL [facility] Blood specimen (specimen) 05/28/2019 10:57 PM CDT 05/28/2019 11:23 PM CDT Estrellita Reyes NP LAB BLOOD ORDERABLES Final Result [facility] [place] [address] * XR Chest 1 View (05/28/2019 5:27 AM CDT) Anatomical Region Laterality Modality Body, Chest N/A Computed Radiogr aphy 05/28/2019 7:48 AM CDT Impressions 05/28/2019 8:04 AM CDT Comparison is made to chest radiograph dated 05/26/2019. Right-sided thoracostomy tube is in place. ??There are small lung volumes with bibasilar atelectasis slightly increased in the right lung base minimally improved in the left lung base. ??No effusion. Stable heart size. Dictated by: Raza Kaye M.D. The radiology attending physician has personally reviewed this study, and had reviewed and/or edited this written report and agrees with it. Electronically signed by: Kathy Johnson M.D. Narrative 05/28/2019 8:04 AM CDT EXAMINATION: 1 view chest radiograph Procedure Note Kathy Johnson MD - 05/28/2019 EXAMINATION: 1 view chest radiograph IMPRESSION: Comparison is made to chest radiograph dated 05/26/2019. Right-sided thoracostomy tube is in place. There are small lung volumes with bibasilar atelectasis slightly increased in the right lung base minimally improved in the left lung base. No effusion. Stable heart size. Dictated by: Raza Kaye M.D. The radiology attending physician has personally reviewed this study, and had reviewed and/or edited this written report and agrees with it. Electronically signed by: Kathy Johnson M.D. us Estrellita Reyes NP IMG XR PROCEDURES Final Re sult * (ABNORMAL) Basic metabolic panel (05/27/2019 9:53 PM CDT) Sodium 127(L) 135 - 145 mmol/L [facility] Comment:Repeated and Verifie d Potassium, pl 3.7 3.3 - 4.9 mmol/L [facility] Chloride 95(L) 97 - 110 mmol/L [facility] Comment:Repeated and Verifie d CO2 25 22 - 32 mmol/L [facility] Anion gap 7 2 - 15 mmol/L [facility] BUN 20 8 - 25 mg/dL [facility] Creatinine 1.35(H) 0.80 - 1.30 mg/dL [facility] Comment:Repeated and Verifie d Glucose 123 70 - 199 mg/dL [facility] Comment: Interpretive Data Fasting glucose >/= [...] classification and Diagnosis of Diabetes Diabetes Care 2017;40 (Suppl. 1):S11. Current interpretive data was last revised 2017. Calcium 8.9 8.5 - 10.3 mg/dL [facility] Blood specimen (specimen) 05/27/2019 9:53 PM CDT 05/27/2019 10:02 PM CDT us Myrtle Haji MD LAB BLOOD ORDERABLES Final Resul t [facility] [place] [address] * (ABNORMAL) CBC without differential (05/27/2019 9:53 PM CDT) WBC 26.1(H) 3.8 - 9.9 K/cumm [facility] Hgb 11.0(L) 13.0 - 17.5 g/dL [facility] Hct 34.4(L) 38.9 - 50.3 % [facility] Plt 301 150 - 400 K/cumm [facility] MPV 11.5 9.1 - 12.3 fL [facility] RBC 3.88(L) 4.30 - 5.80 M/cumm [facility] MCV 88.7 81.3 - 96.4 fL [facility] MCH 28.4 27.1 - 33.3 pg [facility] MCHC 32.0(L) 32.3 - 35.7 g/dL [facility] RDW CV 14.4 11.1 - 14.9 % [facility] RDW SD 46.1 35.7 - 48.1 fL [facility] NRBC abs 0.00 0.00 - 0.01 K/cumm [facility] Blood specimen (specimen) 05/27/2019 9:53 PM CDT 05/27/2019 10:02 PM CDT us Myrtle Haji MD LAB BLOOD ORDERABLES Final Resul t [facility] [place] [address] * (ABNORMAL) Basic metabolic panel (05/26/2019 11:15 PM CDT) Sodium 136 135 - 145 mmol/L [facility] Potassium, pl 4.0 3.3 - 4.9 mmol/L [facility] Chloride 106 97 - 110 mmol/L [facility] CO2 23 22 - 32 mmol/L [facility] Anion gap 7 2 - 15 mmol/L [facility] BUN 11 8 - 25 mg/dL [facility] Creatinine 0.66(L) 0.80 - 1.30 mg/dL [facility] Glucose 166 70 - 199 mg/dL [facility] Comment: Interpretive Data Fasting glucose >/= [...] classification and Diagnosis of Diabetes Diabetes Care 2017;40 (Suppl. 1):S11. Current interpretive data was last revised 2017. Calcium 9.0 8.5 - 10.3 mg/dL [facility] Blood specimen (specimen) 05/26/2019 11:15 PM CDT 05/26/2019 11:49 PM CDT Jasper Canchola MD LAB BLOOD ORDERABLES Marianne l Result Performing Organization Address [facility] Co de Phone Number [facility] [place] [address] * (ABNORMAL) CBC without differential (05/26/2019 11:15 PM CDT) WBC 24.3(H) 3.8 - 9.9 K/cumm [facility] Hgb 11.6(L) 13.0 - 17.5 g/dL [facility] Hct 35.9(L) 38.9 - 50.3 % [facility] Plt 291 150 - 400 K/cumm [facility] MPV 11.7 9.1 - 12.3 fL [facility] RBC 4.16(L) 4.30 - 5.80 M/cumm [facility] MCV 86.3 81.3 - 96.4 fL [facility] MCH 27.9 27.1 - 33.3 pg [facility] MCHC 32.3 32.3 - 35.7 g/dL [facility] RDW CV 13.8 11.1 - 14.9 % [facility] RDW SD 43.8 35.7 - 48.1 fL [facility] NRBC abs 0.00 0.00 - 0.01 K/cumm [facility] Blood specimen (specimen) 05/26/2019 11:15 PM CDT 05/26/2019 11:49 PM CDT Jasper Canchola MD LAB BLOOD ORDERABLES Marianne l Result Performing Organization Address [facility] Co de Phone Number [facility] [place] [address] * (ABNORMAL) Blood gas, arterial (05/26/2019 11:14 PM CDT) pH, Art 7.32(L) 7.35 - 7.45 [facility] PCO2, Arterial 41 35 - 45 mmHg [facility] PO2, Arterial 77(L) 83 - 108 mmHg [facility] HCO3 Art (Calculated) 22 20 - 30 mmol/L [facility] BE, art -5 mmol/L [facility] Comment: Interpretive Data No Reference Range Established Current Interpretive Data was last revised on 2017 O2 Sat Art (Measured) 95 90 - 95 % [facility] Blood specimen (specimen) 05/26/2019 11:14 PM CDT 05/26/2019 11:23 PM CDT Jasper Canchola MD LAB BLOOD ORDERABLES Marianne l Result [facility] [place] [address] * (ABNORMAL) Basic metabolic panel (05/26/2019 7:49 PM CDT) Pathologist [facility] Sodium 139 135 - 145 mmol/L [facility] Potassium, pl 3.8 3.3 - 4.9 mmol/L [facility] Chloride 110 97 - 110 mmol/L [facility] CO2 21(L) 22 - 32 mmol/L [facility] Anion gap 8 2 - 15 mmol/L [facility] BUN 11 8 - 25 mg/dL [facility] Creatinine 0.68(L) 0.80 - 1.30 mg/dL [facility] Glucose 155 70 - 199 mg/dL [facility] Comment: Interpretive Data Fasting glucose >/= [...] classification and Diagnosis of Diabetes Diabetes Care 2017;40 (Suppl. 1):S11. Current interpretive data was last revised 2017. Calcium 9.1 8.5 - 10.3 mg/dL [facility] Blood specimen (specimen) 05/26/2019 7:49 PM CDT 05/26/2019 8:13 PM CDT Jasper Canchola MD LAB BLOOD ORDERABLES Marianne l Result Performing Organization Address [facility] de Phone Number [facility] [place] [address] * (ABNORMAL) CBC without differential (05/26/2019 7:49 PM CDT) WBC 25.0(H) 3.8 - 9.9 K/cumm [facility] Hgb 12.0(L) 13.0 - 17.5 g/dL [facility] Hct 37.1(L) 38.9 - 50.3 % [facility] Plt 288 150 - 400 K/cumm [facility] MPV 11.6 9.1 - 12.3 fL [facility] RBC 4.24(L) 4.30 - 5.80 M/cumm [facility] MCV 87.5 81.3 - 96.4 fL [facility] MCH 28.3 27.1 - 33.3 pg [facility] MCHC 32.3 32.3 - 35.7 g/dL [facility] RDW CV 13.9 11.1 - 14.9 % [facility] RDW SD 45.0 35.7 - 48.1 fL [facility] NRBC abs 0.00 0.00 - 0.01 K/cumm [facility] Blood specimen (specimen) 05/26/2019 7:49 PM CDT 05/26/2019 8:13 PM CDT Jasper Canchola MD LAB BLOOD ORDERABLES Marianne l Result Performing Organization Address [facility] Co de Phone Number [facility] [place] [address] * XR Chest 1 View - in ICU (05/26/2019 2:10 PM CDT) Anatomical Region Laterality Modality Body, Chest N/A Computed Radiogr aphy 05/26/2019 3:56 PM CDT Impressions 05/26/2019 4:22 PM CDT Comparison is made to same day intraoperative chest radiograph. Interval extubation. ??A right thoracostomy tube is redemonstrated. Interval resolution of the previously demonstrated right pneumothorax. ??No left pneumothorax. ??Small lung volumes are noted bilaterally resulting vascular crowding. ??Mild left basilar retrocardiac elective basis is noted. ??No pulmonary edema. Apparent widening of the mediastinal silhouette is likely artifactual secondary to portable technique and lordotic positioning. Subcutaneous emphysema is noted along the right lateral chest wall. Dictated by: Ilan Gutierrez The radiology attending physician has personally reviewed this study, and had reviewed and/or edited this written report and agrees with it. Electronically signed by: Connor Lin M.D. Narrative 05/26/2019 4:22 PM CDT EXAMINATION: 1 view chest radiograph Procedure Note Connor Lin MD - 05/26/2019 EXAMINATION: 1 view chest radiograph IMPRESSION: Comparison is made to same day intraoperative chest radiograph. Interval extubation. A right thoracostomy tube is redemonstrated. Interval resolution of the previously demonstrated right pneumothorax. No left pneumothorax. Small lung volumes are noted bilaterally resulting vascular crowding. Mild left basilar retrocardiac elective basis is noted. No pulmonary edema. Apparent widening of the mediastinal silhouette is likely artifactual secondary to portable technique and lordotic positioning. Subcutaneous emphysema is noted along the right lateral chest wall. Dictated by: Ilan Gutierrez The radiology attending physician has personally reviewed this study, and had reviewed and/or edited this written report and agrees with it. Electronically signed by: Connor Lin M.D. Jasper Canchola MD IMG XR PROCEDURES Final R esult * XR Chest 1 View (05/26/2019 1:45 PM CDT) Anatomical Region Laterality Modality Body, Chest N/A Computed Radiogr aphy 05/26/2019 1:51 PM CDT Impressions 05/26/2019 2:59 PM CDT Comparison is made to prior chest radiographs dated 05/06/2019.. ??There is selective intubation of the left mainstem bronchus. ??A right chest tube is seen. ??There is a large right pneumothorax with associated atelectasis of the right lung. ??The right lung apex and mediastinum are obscured by overlying soft tissue. ??No retained needle is seen within the limitations of the study. The Non Critical results were discussed with Dr. Canchola by Dr. Becky Olivarez on 05/26/2019 at 1:50 PM. Dictated by: Becky Olivarez M.D. The radiology attending physician has personally reviewed this study, and had reviewed and/or edited this written report and agrees with it. Electronically signed by: Connor Lin M.D. Narrative 05/26/2019 2:59 PM CDT EXAMINATION: 1 view chest radiograph Procedure Note Connor Lin MD - 05/26/2019 EXAMINATION: 1 view chest radiograph IMPRESSION: Comparison is made to prior chest radiographs dated 05/06/2019.. There is selective intubation of the left mainstem bronchus. A right chest tube is seen. There is a large right pneumothorax with associated atelectasis of the right lung. The right lung apex and mediastinum are obscured by overlying soft tissue. No retained needle is seen within the limitations of the study. The Non Critical results were discussed with Dr. Canchola by Dr. Becky Olivarez on 05/26/2019 at 1:50 PM. Dictated by: Becky Olivarez M.D. The radiology attending physician has personally reviewed this study, and had reviewed and/or edited this written report and agrees with it. Electronically signed by: Connor Lin M.D. Jasper Canchola MD IMG XR PROCEDURES Final R esult * Surgical pathology (05/26/2019 10:25 AM CDT) Tissue (Lymph node, dissection/region al resection) 05/26/2019 10:25 AM CDT Tissue (Lymph node, dissection/region al resection) 05/26/2019 10:25 AM CDT Tissue (Lymph node, dissection/region al resection) 05/26/2019 10:33 AM CDT Tissue (Lymph node, dissection/region al resection) 05/26/2019 10:44 AM CDT Tissue (Lymph node, dissection/region al resection) 05/26/2019 10:45 AM CDT Tissue (Lung, total / lobe / segmental, tumor) 05/26/2019 11:05 AM CDT Tissue (Lymph node, dissection/region al resection) 05/26/2019 11:15 AM CDT Tissue (Lymph node, dissection/region al resection) 05/26/2019 11:49 AM CDT Tissue (Lymph node, dissection/region al resection) 05/26/2019 12:03 PM CDT Tissue (Lymph node, dissection/region al resection) 05/26/2019 12:12 PM CDT Tissue (Lymph node, dissection/region al resection) 05/26/2019 12:20 PM CDT Tissue (Lymph node, dissection/region al resection) 05/26/2019 12:24 PM CDT Tissue (Lymph node, dissection/region al resection) 05/26/2019 12:27 PM CDT Tissue (Lymph node, dissection/region al resection) 05/26/2019 12:29 PM CDT Tissue (Lymph node, dissection/region al resection) 05/26/2019 12:30 PM CDT Narrative PATHOLOGY [facility] - 06/02/2019 11:23 PM CDT EPIC results best viewed via link to PDF [facility] [place] [address] SURGICAL PATHOLOGY REPORT FINAL WITH ADDENDUM Patient Name: ?? MP KULKARNI Gender: ??M : ??1965 (Age: 54) Address: ??[address] [place] [address] ??[id number] Hospital #: ??[id number] Taken:05/26/2019 Received:05/26/2019 Reported: 06/02/2019 Patient Type: [facility] Inpatient ?? Service: Cardiothoracic Location: [place] [id number] Physician(s): ??Jasper Canchola M.D. KALPANA Lema M.D. Rami Mahmoud Srouji, MD Diagnosis: A. ??Lymph node, station 8, excision ? - No evidence of malignancy in one lymph node (0/1) B. Lymph node, station 8 B, excision ? - No evidence of malignancy in one lymph node (0/1) ? C. Lymph node, station 12, excision ? - No evidence of malignancy in one lymph node (0/1) ? D. Lymph node, station 11, excision ? - No evidence of malignancy in one lymph node (0/1) ? E. Lymph node, station 12 B, excision ? - No evidence of malignancy in one lymph node (0/1) ? F. ??Lung, right lower lobe, lobectomy ? - Neuroendocrine carcinoma, intermediate grade (atypical carcinoid) - Tumor measures 2.4 cm - Lymphovascular invasion is identified - No perineural invasion identified ? - Surgical resection margins free of tumor- Obstructive pneumonia in non- tumor lung ? - Metastatic neuroendocrine carcinoma in one of four peribronchial/hilar lymph nodes (1/4) - See comment and synoptic G. Lymph node, station 10, excision ? - No evidence of malignancy in one lymph node (0/1) ? H. Lymph node, station 7, excision ? - Metastatic neuroendocrine carcinoma in one lymph node (1/1) ? - Greatest dimension: 2.2 cm - No extranodal extension identified ? - Necrotizing granuloma, pending GMS - Non-necrotizing granulomas ? I. Lymph node, station 7 B, excision ? - Metastatic neuroendocrine carcinoma in two lymph nodes (2/2) ? - Greatest dimension: 1.7 cm - No extranodal extension identified ? J. Lymph node, station 7 C, excision ? - No evidence of malignancy in one lymph node (0/1) ? K. Lymph node, station 7 D with pericardium, excision ? - No evidence of malignancy in one lymph nodes (0/1) ? - Pericardium with no evidence of malignancy, and acute and chronic pericarditis L. Lymph node, station 4R, excision ? - No evidence of malignancy in one lymph node (0/1) ? M. Lymph node, station 4L, excision ? - No evidence of malignancy in one lymph node (0/1) ? N. Lymph node, station 4R B, excision ? - No evidence of malignancy in one lymph nodes (0/1) ? O. Lymph node, station 2R, excision ? - No evidence of malignancy in one lymph nodes (0/1) ia/06/02/2019 13:32 By this signature, I attest that the above diagnosis is based upon my personal examination of the slides(and/or other material indicated in the diagnosis). Jerry Weiss MD Report Electronically Reviewed and Signed Out By ??Jerry Weiss MD 06/02/2019 23:23:27 Microscopic Description and Comment: Microscopic examination substantiates the above cited diagnosis. Sections from the mass show features consistent with a neuroendocrine neoplasm. Most of the tumor has a low-grade morphology with features of classic carcinoid . ??Other areas show more desmoplastic reaction and cells with more nucleare atypia and nucleoli are seen. In these latter areas there is a modest increase in mitotic rate (2- 3/10 hpf), with no tumor necrosis. ??The overall morphology of this tumor is most consistent with an intermediate grade neuroendocrine carcinoma. For additional details see the synoptic section below. 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 ??Operative procedure: Thoracotomy, right lower lobectomy, and lymph node dissection. Specimen(s) Received: A: Station 8 lymph node B: Station 8B lymph node C: Station 12 lymph node D: Station 11 lymph node E: Station 12B lymph node F: Right lower lobe G: Station 10 lymph node H: Station 7 lymph node I: Station 7B lymph node J: Station 7C lymph node K: Station 7D lymph node with pericardium L: Station 4R lymph node M: Station 4I lymph node N: Station 4RB lymph node O: Station 2R lymph node Gross Description: The specimens are received in fifteen formalin filled containers each labeled with the patient's name and: ? A. ?? Station 8 lymph node holds one mendoza-anderson fragment of one lymph node measuring 0.6 x 0.5 x 0.3 cm with attached fibroadipose tissue. ??Entirely and intact submitted. ??Labeled A1. ??Jar 0. B. ?? Station 8 B lymph node holds one mendoza-purple fragments of one lymph node measuring 0.9 x 0.5 x 0.3 cm with attached fibroadipose tissue. ??Entirely and intact submitted. ??Labeled B1. ??Jar 0. C. ?? Station 12 lymph node holds one dark purple fragment of one lymph node measuring 1.4 x 1.0 x 0.8 cm. ??Bisected and entirely submitted. ??Labeled C1. Jar 0. D. ?? Station 11 lymph node holds one purple fragment of one lymph node measuring 1.1 x 0.6 x 0.4 cm with scant attached fibroadipose tissue. ??Bisected and entirely submitted. ??Labeled D1. ??Jar 0. E. ?? Station 12 B lymph node holds one small fragment of lymph node measuring 0.5 x 0.2 x 0.2 cm. ??Wrapped and entirely submitted. ??Labeled E1. ??Jar 0. F. ?? Right lower lobe holds a lobe of lung measuring 14.0 x 12.5 x 3.8 cm and weighing 200.6 gram. ??Pleural surface is mendoza-dark purple without any grossly identified lesion or puckering. ??No staple line is identified. ??A firm nodule, approximately 2.0 cm is identified with palpation. ??Pleural surface over the firm nodule is inked in black. ??Bronchoalveolar margin is inked blue. ??Bronchovascular margin is shaved and submitted in F1 cassette. ??Sections show a mendoza-white firm and well demarcated lobulated mass measuring 2.4 x 1.8 x 1.1 cm. The mass is 0.2 cm from pleural surface (black ink) and 3.9 cm from bronchovascular margin. ??Grossly, the mass is entirely excised. ??Labeled A1-bronchovascular margin; F2 to F5- sections of the mass; F6- unremarkable lung. ??Jar 3. G. ?? Station 10 lymph node holds one purple fragment of one lymph node measuring 0.5 x 0.4 x 0.3 cm with scant attached fibroadipose tissue. ??Wrapped and entirely and intact submitted. Labeled G1. ??Jar 0. H. ?? Station 7 lymph node holds one mendoza-purple firm fragment of tissue measuring 3.0 x 2.6 x 1.7 cm. ??Section shows a mendoza-white mass measuring 1.6 x 1.3 x 1.5 cm. ??There is a focus of calcified tissue measuring 0.6 x 0.4 cm. grossly, the lymph node is presumably positive for malignancy. ??Labeled H1 and H2-sections of the lymph node. ??Jar 1. I. ?? Station 7 B lymph node holds a stony firm, mendoza-purple fragment of one lymph node measuring 2.1 x 1.5 x 1.0 cm and also a dark purple small fragment of tissue measuring 0.6 x 0.4 x 0.3 cm. ??Sections of the larger piece show a mendoza-white lobulated mass with a calcified focus measuring 0.4 x 0.3 cm. grossly, the node is presumably positive for malignancy. ??Labeled I 1- larger calcified node (in EDTA); I2-the smaller fragment of lymph node. ??Jar 1. J. ?? Station 7 C lymph node holds one mendoza-purple fragment of one lymph node measuring 1.5 x 1.3 x 0.5 cm with attached fibroadipose tissue. ??Entirely an intact submitted. ??Jar 0. ??Labeled J1. K. ?? Station 7 D lymph node with pericardium holds two unoriented fragments of mendoza-dark purple soft tissue measuring 5.3 x 3.0 x 1.0 cm in aggregates. ??Serial sectioning shows a firm mendoza-yellow tissue surrounded by dense fibroadipose tissue and one lymph node. ??Labeled K1- Bisected lymph node; K2 and K3-sections of pericardium. ??Jar 1. L. ?? Station 4R lymph node holds one mendoza-purple fragment of one lymph node measuring 3.5 x 2.5 x 1.5 cm. ??Sections show one lymph node surrounded by mendoza- yellow fibroadipose tissue. ??Grossly, the node is not positive for malignancy. ??Labeled L1 through L4-sections of the node. ??Jar 0. M. ?? Station 4 L lymph node holds one fragment of mendoza-purple one lymph node measuring 1.4 x 0.8 x 0.4 cm with attached fibroadipose tissue. ??Bisected and entirely submitted. ??Labeled M1. ??Jar 0. N. ?? Station 4R B lymph node holds one soft fragment of tissue measuring 3.7 x 2.2 x 1.6 cm with attached fibroadipose tissue. ??Sections show one lymph node wrapped with mendoza-yellow fibroadipose tissue. ??Grossly, is not positive for malignancy. ??Labeled N1 to N3- sections of the node. ??Jar 0. O. ?? Station 2R lymph node holds two unoriented fragments of fibroadipose tissue consisting of one lymph node measuring 3.5 x 1.5 x 1.0 cm. ??Sections show one lymph node which grossly, is not positive for metastasis. ??Labeled O1- bisected node; O2-fibroadipose tissue. ??Jar 0. s05/28/2019 11:39 Gross Resident:Patric Claire MD ? CANCER CASE SUMMARY FOR TUMORS OF THE LUNG Procedure: ?Lobectomy ? Specimen laterality: ?Right ? Tumor site: ?Lower lobe ? Tumor size: ?Greatest dimension: 2.4 cm ? Tumor focality: ?Single tumor ? Histologic type: ?Atypical carcinoid tumor ? Histologic grade: ?G2: Moderately differentiated ? Spread Through Air Spaces: ?Not identified ? Visceral pleura invasion: ?Not identified ? Lymphovascular Invasion: ?Present ? Direct Invasion of Adjacent Structures: ?No adjacent structures present ? Margins: ?All margins are uninvolved by carcinoma ? Bronchial Margin: ??Uninvolved by invasive carcinoma ? Bronchial Margin: ??Uninvolved by carcinoma in situ ? Vascular Margin: ??Uninvolved by carcinoma ? Parenchymal Margin: ??Uninvolved by invasive carcinoma ? Treatment effect: ?No known presurgical therapy ? Regional lymph nodes: ?Number of lymph nodes involved: 4 ? Number of lymph nodes examined: 19 ? Extranodal Extension: ?Not identified ? Pathologic Stage Classification (pTNM, AJCC 8th Edition): Primary tumor (pT): ?pT1c: ??Tumor >2 cm but <=3 cm in greatest dimension Regional Lymph Nodes (pN): ?pN2: Metastasis in ipsilateral mediastinal and/or subcarinal lymph node(s) ? Distant metastasis (M): ?cM0: ??Clinically absent ? The pathologic stage assigned here should be regarded as provisional, and may change after integration of clinical data not provided with this specimen. CAP VERSION: Lung 4.0.0.2 By this signature, I attest that the above diagnosis is based upon my personal examination of the slides(and/or other material). Addenda/Procedures Addendum Ordered: 06/03/2019 Status: Signed Out Addendum Complete: 06/03/2019 By: Jerry Weiss MD Addendum Signed Out: 06/03/2019 ?? Addendum Comment A GMS stain with appropriate controls was performed on section H2 and is negative for fungal organisms. Our prior diagnoses are unchanged. By this signature, I attest that the above diagnosis is based upon my personal examination of the slides(and/or other material indicated in the diagnosis). ?? Jerry Weiss MD ??Report Electronically Reviewed and Signed Out By ??Jerry Weiss MD ??06/03/2019 15:29:01 ??Roberto Radford MD ? The performance characteristics of some immunohistochemical stains, fluorescence in-situ hybridization tests and immunophenotyping by flow cytometry cited in this report (if any) were determined by the Surgical Pathology Department at [facility] as part of an ongoing manager quality program and in compliance with federally mandated [...] performance characteristics determined by the Surgical Pathology Department of [facility]. ??It has not been cleared or approved by the U. S. Food and Drug Administration. IMAGES AND SCANNED DOCUMENTS, IF INCLUDED, ONLY VIEWABLE IN PDF VERSION OF REPORT Jasper Canchola MD LAB PATHOLOGY ORDERABLES Final Result PATHOLOGY [facility] [address] Floor [place], [place] [phone] documented in this encounter Visit Diagnoses Diagnosis Malignant neoplasm of lower lobe of right lung (HCC)- Primary Malignant neoplasm of lower lobe of right lung (HCC) Acute post-operative pain Acute post-thoracotomy pain LEIDA (acute kidney injury) (HCC) Malignant neoplasm of lower lobe of right lung (HCC) documented in this encounter Admitting Diagnoses Diagnosis Malignant neoplasm of lower lobe of right lung (HCC) documented in this encounter Administered Medications Inactive Administered Medications - up to 3 most recent administrations Medication Order MAR Action Action Date Dose Rate Site acetaminophen (TYLENOL) tablet 650 mg 650 mg, oral, Every 4 hours PRN, 1st line for pain, fever, fever greater than 38.3 C, Starting on Priscila 05/26/19 at 1819, Indications: Fever, PainIndications:Fever,Pain Given 05/28/2019 4:59 PM CDT 650 mg Given 05/27/2019 5:23 PM CDT 650 mg Given 05/27/2019 8:42 AM CDT 650 mg acetaZOLAMIDE ER (DIAMOX SEQUAL) extended release capsule 500 mg 500 mg, oral, 2 times daily, First dose on Priscila 05/26/19 at 2300, Do not crush, chew, cut, dissolve, open or otherwise manipulate tablet/capsule., Indications: idiopathic intracranial hypertensionIndications:idiopathic intracranial hypertension Given 05/30/2019 8:04 AM CDT 500 mg Given 05/27/2019 8:39 PM CDT 500 mg Given 05/27/2019 8:43 AM CDT 500 mg amLODIPine (NORVASC) tablet 5 mg 5 mg, oral, Daily, First dose on Thu05/27/19 at 1345 Given 05/30/2019 7:51 AM CDT 5 mg Given 05/29/2019 8:41 AM CDT 5 mg Given 05/28/2019 8:59 AM CDT 5 mg cyclobenzaprine (FLEXERIL) tablet 10 mg 10 mg, oral, 3 times daily, First dose on Priscila 05/26/19 at 2200 Given 05/30/2019 4:45 PM CDT 10 mg Given 05/30/2019 7:49 AM CDT 10 mg Given 05/29/2019 5:02 PM CDT 10 mg enoxaparin (LOVENOX) syringe 40 mg 40 mg, subcutaneous, Daily (for enoxaparin), First dose on Priscila 05/26/19 at 2200, Indications: Deep Vein Thrombosis PreventionIndications:Deep Vein Thrombosis Prevention Given 05/28/2019 10:51 PM CDT 40 mg Left Lower Abdomen Given 05/27/2019 8:38 PM CDT 40 mg Le ft Lower Abdomen Given 05/26/2019 10:18 PM CDT 40 mg L eft Lower Abdomen gabapentin (NEURONTIN) capsule 300 mg 300 mg, oral, Nightly, First dose (after last modification) on [facility] 05/28/19 at 2100 Given 05/29/2019 8:46 PM CDT 300 mg Given 05/28/2019 8:49 PM CDT 300 mg lidocaine (LIDODERM) 5 % patch 1 patch 1 patch, transdermal, Administer over 12 Hours, Daily, First dose on [facility] 05/28/19 at 1815, Do not cover the holes on the top side of the patch., Apply to affected area: chest Medication Applied 05/29/2019 8:42 AM CDT 1 patch Back Medication Applied 05/28/2019 5:50 PM CDT 1 patch Back lidocaine PF (XYLOCAINE) 10 mg/mL (1 %) preservative free injection As needed, Starting on 05/30/19 at 1031, Intra-Op Given 05/30/2019 10:31 AM CDT 10 mL Other (Comment) oxyCODONE (ROXICODONE) tablet 10 mg 10 mg, oral, Every 3 hours PRN, 2nd line for pain, Starting on Thu05/29/19 at 0745, Indications: PainIndications:Pain Given 05/30/2019 4:45 PM CDT 10 mg Given 05/30/2019 1:10 PM CDT 10 mg Given 05/30/2019 7:48 AM CDT 10 mg polyethylene glycol (MIRALAX) packet 17 g 17 g, oral, Daily, First dose on Thu05/27/19 at 1100, Indications: constipationIndications:constipation Given 05/29/2019 8:42 AM CDT 17 g Given 05/28/2019 9:02 AM CDT 17 g Given 05/27/2019 3:31 PM CDT 17 g pravastatin (PRAVACHOL) tablet 20 mg 20 mg, oral, Every morning, First dose on Thu05/27/19 at 0900, Indications: hyperlipidemiaIndications:hyperlipidemia Given 05/30/2019 7:48 AM CDT 20 mg Given 05/29/2019 8:41 AM CDT 20 mg Given 05/28/2019 8:59 AM CDT 20 mg senna (SENOKOT) tablet 1 tablet 1 tablet, oral, 2 times daily, First dose on Thu05/26/19 at 2200, If able to swallow medications. Hold for diarrhea., Indications: constipationIndications:constipation Given 05/30/2019 7:48 AM CDT 1 table t Given 05/29/2019 8:46 PM CDT 1 tablet Given 05/29/2019 8:41 AM CDT 1 tablet sodium chloride 0.9% flush 0.5-20 mL 0.5-20 mL, intra-catheter, Every 8 hours scheduled, First dose on Priscila 05/26/19 at 2200, Flush volume based on line type and size. Given 05/29/2019 10:39 PM CDT 1 0 mL Given 05/29/2019 5:03 PM CDT 10 mL Given 05/28/2019 10:51 PM CDT 10 mL sodium chloride 0.9% flush 0.5-20 mL 0.5-20 mL, intra-catheter, As needed, line care, Starting on Priscila 05/26/19 at 2127, Flush volume based on line type and size. Flush before and after each use. Given 05/28/2019 6:40 PM CDT 10 mL documented in this encounter Discontinued Medications Medication Sig Discontinue Reason Start Date End Da te oxyCODONE (ROXICODONE) 10 mg tabletIndications:Pain Take 1 tablet (10 mg total) by mouth every 3 (three) hours as needed for pain 05/30/2019 05/30/2019 oxyCODONE (ROXICODONE) 10 mg tabletIndications:Pain Take 1-1.5 tablets (10-15 mg total) by mouth every 3 (three) hours as needed for pain 05/30/2019 05/30/2019 HYDROcodone-acetaminop hen 2.5-325 mg tablet Take 1 tablet by mouth every 4 (four) hours Stop Taking at Discharge 05/19/2019 05/30/2019 documented as of this encounter Active and Recently Administered Medications Times are shown in CDT. Scheduled Medication Order 05/28/2019 05/29/2019 05/30/2019 acetaZOLAMIDE ER (DIAMOX SEQUAL) extended release capsule 500 mg 500 mg, oral, 2 times daily, First dose on Priscila 05/26/19 at 2300, Do not crush, chew, cut, dissolve, open or otherwise manipulate tablet/capsule., Indications: idiopathic intracranial hypertension 0902 (Not Given - Provider: Du Anderson RN - Reason: Other - Comment: Told to hold dose per MD team)0909 (Held by Provider - Provider: John Fernando MD - Reason: Change in Patient Status)2100 (Dose Auto Held - Provider: John Fernando MD) 0900 (Dose Auto Held - Provider: John Fernando MD)2100 (Dose Auto Held - Provider: John Fernando MD) 0755 (MAR Unhold - Provider: Keke Pratt NP)0804 (Given - Provider: Matteo Hernandez RN)0930 (MAR Hold - Provider: Automatic Transfer Provider - Reason: Patient not available)1257 (MAY Unhold - Provider: Automatic Transfer Provider) amLODIPine (NORVASC) tablet 5 mg 5 mg, oral, Daily, First dose on Thu05/27/19 at 1345 0859 (Given - Provider: Du Anderson RN) 0841 (Given - Provider: Mp Matos, KAMILA) 0751 (Given - Provider: Matteo Hernandez RN)0930 (MAY Hold - Provider: Automatic Transfer Provider - Reason: Patient not available)1257 (MAY Unhold - Provider: Automatic Transfer Provider) cyclobenzaprine (FLEXERIL) tablet 10 mg 10 mg, oral, 3 times daily, First dose on Priscila 05/26/19 at 2200 0903 (Not Given - Provider: Du Anderson RN - Reason: Patient/family refused - Comment: Does not need)1545 (Hold - Provider: Du Anderson RN - Reason: Patient/family refused)2049 (Not Given - Provider: Efraín Hutton RN - Reason: Patient/family refused) 0841 (Given - Provider: Mp Matos RN)1702 (Given - Provider: Mp Matos RN)2048 (Not Given - Provider: Axel Aguirre RN - Reason: Patient/family refused) 0749 (Given - Provider: Matteo Hernandez RN)0930 (MAY Hold - Provider: Automatic Transfer Provider - Reason: Patient not available)1257 (MAY Unhold - Provider: Automatic Transfer Provider)1645 (Given - Provider: Matteo Hernandez RN) enoxaparin (LOVENOX) syringe 40 mg 40 mg, subcutaneous, Daily (for enoxaparin), First dose on Priscila 05/26/19 at 2200, Indications: Deep Vein Thrombosis Prevention 2251 (Given - Provider: Efraín Hutton RN) 2048 (Not Given - Provider: Axel Aguirre RN - Reason: Hold for Procedure - Comment: RN was toldto hold lovenox this PM.) 0930 (MAY Hold - Provider: Automatic Transfer Provider - Reason: Patient not available)1257 (MAY Unhold - Provider: Automatic Transfer Provider) gabapentin (NEURONTIN) capsule 300 mg 300 mg, oral, Nightly, First dose (after last modification) on 05/28/19 at 2100 204 (Given - Provider: Efraín Hutton RN) 2045 (Given - Provider: Axel Aguirre RN) 0930 (MAR Hold - Provider: Automatic Transfer Provider - Reason: Patient not available)1257 (MAR Unhold - Provider: Automatic Transfer Provider) guaiFENesin ER (MUCINEX) extended release tablet 600 mg (COMPLETED) 600 mg, oral, 2 times daily, First dose on Thu05/27/19 at 1600, For 3 days, Do not crush, chew, cut, dissolve, open or otherwise manipulate tablet/capsule. 0859 (Given - Provider: Du Anderson RN)2048 (Given - Provider: Efraín Hutton RN) 0854 (Given - Provider: Mp Matos, KAMILA)2045 (Given - Provider: Axel Aguirre RN) 0748 (Given - Provider: Matteo Hernandez, KAMILA) lidocaine (LIDODERM) 5 % patch 1 patch 1 patch, transdermal, Administer over 12 Hours, Daily, First dose on 05/28/19 at 1815, Do not cover the holes on the top side of the patch., Apply to affected area: chest 1750 (Medication Applied - Provider: Du Anderson RN - Comment: Right back) 0539 (Medication Removed - Provider: Efraín Hutton RN)0842 (Medication Applied - Provider: Mp Matos RN)2047 (Medication Removed - Provider: Axel Aguirre RN) 0903 (Not Given - Provider: Matteo Hernandez, KAMILA - Reason: Other)0930 (MAR Hold - Provider: Automatic Transfer Provider - Reason: Patient not available)1257 (MAR Unhold - Provider: Automatic Transfer Provider) polyethylene glycol (MIRALAX) packet 17 g 17 g, oral, Daily, First dose on Thu05/27/19 at 1100, Indications: constipation 0902 (Given - Provider: Du Anderson RN) 0842 (Given - Provider: Mp Matos RN) 0741 (Not Given - Provider: Matteo Hernandez, KAMILA - Reason: NPO)0930 (MAY Hold - Provider: Automatic Transfer Provider - Reason: Patient not available)1257 (MAY Unhold - Provider: Automatic Transfer Provider) pravastatin (PRAVACHOL) tablet 20 mg 20 mg, oral, Every morning, First dose on Thu05/27/19 at 0900, Indications: hyperlipidemia 0859 (Given - Provider: Du Anderson, RN) 0841 (Given - Provider: Mp Matos RN) 0748 (Given - Provider: Matteo Hernandez RN)0930 (MAY Hold - Provider: Automatic Transfer Provider - Reason: Patient not available)1257 (MAR Unhold - Provider: Automatic Transfer Provider) senna (SENOKOT) tablet 1 tablet(Linked Group 1) 1 tablet, oral, 2 times daily, First dose on Thu05/26/19 at 2200, If able to swallow medications. Hold for diarrhea., Indications: constipation 0902 (Given - Provider: Du Anderson RN)2048 (Given - Provider: Efraín Hutton RN) 0841 (Given - Provider: Mp Matos RN)204 (Given - Provider: Axel Aguirre RN) 0748 (Given - Provider: Matteo Hernandez RN)0930 ([facility] Hold - Provider: Automatic Transfer Provider - Reason: Patient not available)1257 (MAR Unhold - Provider: Automatic Transfer Provider) sodium chloride 0.9% flush 0.5-20 mL 0.5-20 mL, intra-catheter, Every 8 hours scheduled, First dose on Thu05/26/19 at 2200, Flush volume based on line type and size. 0600 (Due)1400 (Hold - Provider: Du Anderson RN - Reason: IV Infusing)2251 (Given - Provider: Efraín Hutton RN) 0653 (Not Given - Provider: Efraín Hutton RN - Reason: Other)1703 (Given - Provider: Mp Matos, KAMILA)2239 (Given - Provider: Axel Aguirre RN) 0600 (Due)0930 (MAR Hold - Provider: Automatic Transfer Provider - Reason: Patient not available)1257 (MAR Unhold - Provider: Automatic Transfer Provider)1345 (Not Given - Provider: Matteo Hernandez RN - Reason: Other) Continuous Medication Order 05/28/2019 05/29/2019 05/30/2019 bupivacaine preservative free in 0.9% sodium chloride 250 mL 0.1 % (1,000 mcg/mL) (CANCELED) Continuous Rate: 10 mL/hr, Patient Bolus Dose: none, epidural, Continuous, Starting on Thu05/27/19 at 1100, Until Thu05/30/19 at 1440, 250 mL, Indications: Pain, Routine 0100 (Rate/Dose Verify - Provider: Axel Aguirre RN)0200 (Rate/Dose Verify - Provider: Axel Aguirre RN)0300 (Rate/Dose Verify - Provider: Axel Aguirre RN)0400 (Rate/Dose Verify - Provider: Axel Aguirre RN)0635 (Rate/Dose Verify - Provider: Axel Aguirre RN)0700 (Rate/Dose Verify - Provider: Du Anderson RN)0800 (Rate/Dose Verify - Provider: Du Anderson RN)0900 (Rate/Dose Verify - Provider: Du Anderson RN)1000 (Rate/Dose Verify - Provider: Du Anderson RN)1100 (Rate/Dose Verify - Provider: Du Anderson RN)1200 (Rate/Dose Verify - Provider: Du Anderson RN)1300 (Rate/Dose Verify - Provider: Du Anderson RN)1400 (Rate/Dose Verify - Provider: Du Anderson RN)1500 (Rate/Dose Verify - Provider: Du Anderson RN)1600 (Rate/Dose Verify - Provider: Du Anderson RN)1700 (Rate/Dose Verify - Provider: Du Anderson RN)1800 (Rate/Dose Verify - Provider: Du Anderson RN)1900 (Rate/Dose Verify - Provider: Du Anderson RN)2049 (New Bag - Provider: Efraín Hutton RN) 1900 (Rate/Dose Verify - Provider: Axel Mendidla Muthukumaru, RN)2200 (Rate/Dose Verify - Provider: Axel Aguirre RN)2210 (New Bag - Provider: Axel Aguirre RN) 0000 (Rate/Dose Verify - Provider: Axel Aguirre RN)0100 (Rate/Dose Verify - Provider: Axel Aguirre RN)0300 (Rate/Dose Verify - Provider: Axel Aguirre RN)0400 (Rate/Dose Verify - Provider: Axel Aguirre RN)0430 (Canceled Entry - Provider: Axel Aguirre RN)0825 (Rate/Dose Verify - Provider: Matteo Hernandez RN)1040 (Continued from OR - Provider: Imelda Ramesh RN) HYDROmorphone in 0.9% sodium chloride (DILAUDID) 20 mg/100 mL (0.2 mg/mL) infusion (premix) (CANCELED) Continuous dose: None, KILN STACKER dose: 0.2 mg, KILN STACKER lockout: 10 Minutes, 1 hour limit: Other / 1.2 mg, intravenous, Continuous, Starting on Priscila 05/26/19 at 1445, Until 05/28/19 at 0909, 100 mL, Indications: Pain, Routine 0200 (New Syringe/Cartridge - Provider: Axel Aguirre RN)1230 (Stopped (Dual Sign) - Provider: Du Anderson RN) Lactated Ringer's (LR) infusion (CANCELED) 20 mL/hr, intravenous, Continuous, Starting on Thu05/27/19 at 0930, For 1L then stop 0100 (Rate/Dose Verify - Provider: Axel Aguirre RN)0200 (Rate/Dose Verify - Provider: Axel Aguirre RN)0300 (Rate/Dose Verify - Provider: Axel Aguirre RN)0700 (Rate/Dose Verify - Provider: Du Anderson RN)0800 (Rate/Dose Verify - Provider: Du Anderson RN)0900 (Rate/Dose Verify - Provider: Du Anderson RN)1000 (Rate/Dose Verify - Provider: Du Anderson RN)1100 (Rate/Dose Verify - Provider: Du Anderson RN)1200 (Rate/Dose Verify - Provider: Du Anderson RN)1300 (Rate/Dose Verify - Provider: Du Anderson RN)1400 (Rate/Dose Verify - Provider: Du Anderson RN)1500 (Rate/Dose Verify - Provider: Du Anderson RN)1600 (Rate/Dose Verify - Provider: Du Anderson RN)1700 (Rate/Dose Verify - Provider: Du Anderson RN)1800 (Rate/Dose Verify - Provider: Du Anderson RN)1900 (Canceled Entry - Provider: Du Anderson RN) PRN Medication Order 05/28/2019 05/29/2019 05/30/2019 acetaminophen (TYLENOL) tablet 650 mg 650 mg, oral, Every 4 hours PRN, 1st line for pain, fever, fever greater than 38.3 C, Starting on Priscila 05/26/19 at 1819, Indications: Fever, Pain 1659 (Given - Provider: Du Anderson RN) 0930 (MAY Hold - Provider: Automatic Transfer Provider - Reason: Patient not available)1257 (MAY Unhold - Provider: Automatic Transfer Provider) lidocaine PF (XYLOCAINE) 10 mg/mL (1 %) preservative free injection (CANCELED) As needed, Starting on 05/30/19 at 1031, Intra-Op 1031 (Given - Provider: Amy Chun MD - Comment: Administer to Bronchus) naloxone (NARCAN) 0.4 mg/mL injection 0.04-0.4 mg 0.04-0.4 mg, intravenous, Once as needed, other, excessive sedation/respiratory depression, Starting on Priscila 05/26/19 at 1052, For 1 dose, Dilute 0.4 mg with 9 mL NS (final concentration 0.04 mg/mL). For respiratory depression (respiratory rate less than 6), administer 0.4 mg IVP over 30 seconds. For excessive sedation administer 0.04 mg (1 mL) every 1 minute until desired level of alertness. Notify MD. For IV, administer over 30 seconds., Indications: Opioid Toxicity 0930 (MAY Hold - Provider: Automatic Transfer Provider - Reason: Patient not available)1257 ([facility] Unhold - Provider: Automatic Transfer Provider) ondansetron (ZOFRAN) injection 4 mg 4 mg, intravenous, Administer over 2 Minutes, Every 6 hours PRN, nausea, vomiting, Starting on Priscila 05/26/19 at 2127, Administer no sooner than 6 hours after last dose. , Indications: Nausea and Vomiting 0930 (MAY Hold - Provider: Automatic Transfer Provider - Reason: Patient not available)1257 ([facility] Unhold - Provider: Automatic Transfer Provider) oxyCODONE (ROXICODONE) tablet 10 mg (CANCELED) 10 mg, oral, Every 4 hours PRN, 2nd line for pain, Starting on 05/28/19 at 1730, Indications: Pain 2049 (Given - Provider: Efraín Hutton RN) 0122 (Given - Provider: Efraín Hutton RN)0540 (Given - Provider: Efraín Hutton RN) oxyCODONE (ROXICODONE) tablet 10 mg 10 mg, oral, Every 3 hours PRN, 2nd line for pain, Starting on 05/29/19 at 0745, Indications: Pain 0842 (Given - Provider: Mp Matos RN)1303 (Given - Provider: Mp Matos RN)1701 (Given - Provider: Mp Matos RN)2046 (Given - Provider: Axel Aguirre RN) 0059 (Given - Provider: Axel Aguirre RN)0425 (Given - Provider: Axel Aguirre RN)0748 (Given - Provider: Matteo Hernandez, KAMILA)0930 ([facility] Hold - Provider: Automatic Transfer Provider - Reason: Patient not available)1257 ([facility] Unhold - Provider: Automatic Transfer Provider)1310 (Given - Provider: Matteo Hernandez, KAMILA)1645 (Given - Provider: Matteo Hernandez, KAMILA) oxyCODONE (ROXICODONE) tablet 5 mg (CANCELED) 5 mg, oral, Every 4 hours PRN, 2nd line for pain, Starting on 05/28/19 at 0909, Indications: Pain 1156 (Given - Provider: Du Anderson RN)1653 (Given - Provider: Du Anderson RN) sodium chloride 0.9% flush 0.5-20 mL 0.5-20 mL, intra-catheter, As needed, line care, Starting on Priscila 05/26/19 at 2127, Flush volume based on line type and size. Flush before and after each use. 1840 (Given - Provider: Du Anderson RN) 0930 (MAR Hold - Provider: Automatic Transfer Provider - Reason: Patient not available)1257 (MAY Unhold - Provider: Automatic Transfer Provider) Linked Groups Order Group 1: senna (SENOKOT) tablet 1 tabletJump to med 1 tablet, oral, 2 times daily, First dose on Priscila 05/26/19 at 2200, If able to swallow medications. Hold for diarrhea., Indications: constipation Or senna 1.76 mg/mL syrup 8.8 mg (CANCELED) 8.8 mg, feeding tube, 2 times daily, First dose on Priscila 05/26/19 at 2200, If taking meds per tube. Hold for diarrhea., Indications: constipation documented in this encounter Orders Medications Ordered That Vikram ht Not Have Been Administered Count Last Ordered Date First Ordered Date HYDROmorphone (DILAUDID) injection 0.2 mg 2 05/30/2019 05/26/2019 naloxone (NARCAN) 0.4 mg/mL injection 0.04-0.4 mg 3 05/30/2019 05/26/2019 ondansetron (ZOFRAN) injection 4 mg 3 05/2905/26/2019 oxyCODONE (ROXICODONE) tablet 10 mg 2 05/2805/28/2019 gabapentin (NEURONTIN) capsule 300 mg 3 05/26/2019 lidocaine (LIDODERM) 5 % patch 1 patch 1 oxyCODONE (ROXICODONE) tablet 5 mg 1 2019 amLODIPine (NORVASC) tablet 5 mg 1 05/27/19 bupivacaine preservative francisca e in 0.9% sodium chloride 250 mL 0.1 % (1,000 mcg/mL) 3 05/27/2019 05/26/2019 guaiFENesin ER (MUCINEX) ext ended release tablet 600 mg 1 05/27/2019 Lactated Ringer's (LR) infusion 3 0 05/26/2019 polyethylene glycol (MIRALAX) packet 17 g 1 05/27/2019 acetaminophen (TYLENOL) tablet 1,000 mg 1 0 05/26/2019 acetaminophen (TYLENOL) tablet 650 mg 1 02/2020 acetaZOLAMIDE ER (DIAMOX SEQ UAL) extended release capsule 500 mg 1 05/26/2019 albumin 5 % bottle 12.5 g 1 05/26/2019 ceFAZolin (ANCEF) 2,000 mg/2 0 mL in sterile water (premix) 2,000 mg 1 05/26/2019 cyclobenzaprine (FLEXERIL) tablet 10 mg 1 0 05/26/2019 enoxaparin (LOVENOX) syringe 40 mg 1 2019 heparin 5,000 unit/mL inject ion 5,000 Units 1 05/26/2019 HYDROmorphone (DILAUDID) injection 0.4 mg 1 05/26/2019 HYDROmorphone in 0.9% sodium chloride (DILAUDID) 20 mg/100 mL (0.2 mg/mL) infusion (premix) 1 05/26/2019 ibuprofen (ADVIL,MOTRIN) tablet 600 mg 1 ketorolac (TORADOL) 15 mg/mL injection 15 mg 1 05/26/2019 lidocaine (XYLOCAINE) 10 mg/ mL (1 %) injection 40 mg 1 05/26/2019 magnesium sulfate 2 g/50 mL in water (premix) 2 g 1 05/26/2019 norepinephrine in dextrose 5 % (LEVOPHED) 8,000 mcg/250 mL (32 mcg/mL) infusion (premix) 1 05/26/2019 pravastatin (PRAVACHOL) tablet 20 mg 1 05/14 senna (SENOKOT) tablet 1 tablet 1 0 senna 1.76 mg/mL syrup 8.8 mg 1 05/26/2019 sodium chloride 0.9 % irrigation 1 05/26/19 20 sodium chloride 0.9% flush 0.5-20 mL 4 05/14 sodium chloride 0.9% solution 1,000 mL 1 sterile water irrigation 1 05/26/2019 Imaging Orders Without Results Count Last Order ed Date First Ordered Date PEP THERAPY/AIRWAY CLEARANCE 2 05/27/2019 Nursing Count Last Ordered Date First Orde red Date DISCONTINUE VASCULAR ACCESS (SPECIFY) 1 BEACH CATHETER - DISCONTINUE 1 05/27/2019 WEIGH PATIENT 1 05/26/2019 Transfer Count Last Ordered Date First Orde red Date TRANSFER PATIENT 1 05/26/2019 Case Request Count Last Ordered Date First Orde red Date CASE REQUEST OPERATING ROOM 1 05/27/2019 documented in this encounter Care Teams Oracle Forms Developer Relationship Specialty Start Date End Date Clara Stanley PA [address] [place] [id number] PCP - General Nurse Practitioner 04/05/19 Jasper Canchola MD [address] [place] [address] Surgeon Thoracic Surgery 05/11/19 [place] [address] [place] [address] Steel Plate Printer Pulmonary Disease 05/11/19 Kip Del Rio MD [address] [facility] [address] [place] [address] Medical Oncologist/Press Tender Short Goods Hematology and Oncology 05/11/19 Jacob Flynn MD [address] [facility] [address] [place] [address] Radiation Oncologist Radiation Oncology 05/25/19 documented as of this encounter
--- OUTSIDE RECORDS SUMMARY | 2024-03-02 03:47 | XMS_ITS | Encounter Summary ---
Author Organization [facility] Address [address] [place] [address] Care Team Providers Care Show Girl Name Role Phone Clara Stanley PA Primary Care Provider + Jasper Canchola MD Unavailable Alexis Lopez MD Unavailable Kip Del Rio MD Unavailable Jacob Flynn MD Unavailable Renetta Ballesteros NP Unavailable Encounter Details Date Type Department Care Team (Late st Contact Info) Description 05/30/2019 Documentation 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 No / Unsure 05/26/2019 7:38 AM CDT documented as of this encounter Miscellaneous Notes * Plan of Care - Alexander Johnson RN - 05/30/2019 10:10 AM CDT Plan of care discussed with team during DCAM/rounds/progress notes today. Plan for possible DC today with no needs per thoracic surgery Feel free to contact me at [phone] with further inquiries documented in this encounter Plan of Treatment Not on file documented as of this encounter Visit Diagnoses Not on filedocumented in this encounter Care Teams Show Girl Relationship Specialty Start Date End Date Clara Stanley PA [address] [place] [address] PCP - General Nurse Practitioner 04/05/19 Jasper Canchola MD [address] [place] [address] Surgeon Thoracic Surgery 05/11/19 Alexis Lopez MD [address] [address] Market Research Senior Project Manager Pulmonary Disease 05/11/19 Kip Del Rio MD [address] [place] [address] Medical Oncologist/Cooling Room Attendant Hematology and Oncology 05/11/19 Jacob Flynn MD [address] [place] [address] Radiation Oncologist Radiation Oncology 05/25/19 Renetta Ballesteros NP [address] [place] [address] Nurse Practitioner Radiation Oncology 06/11/22 documented as of this encounter
--- OUTSIDE RECORDS SUMMARY | 2024-03-02 03:47 | XMS_ITS | Encounter Summary ---
Author Organization [facility] Address [address] [facility] [address] [place] [address] Care Team Providers Care Electro Mechanical Technician Name Role Phone Clara Stanley Primary Care Provider + Jasper Canchola MD Unavailable Alexis Lopez MD Unavailable [phone] Kip Del Rio MD Unavailable Jacob Flynn MD Unavailable [phone] Encounter Details Date Type Department Care Team (Late st Contact Info) Description 06/28/2019 Orders Only [facility] Health Information Management [address] [place] [address] Scanning, Provider Social History Tobacco Use Types Packs/Day Years Used Date Smoking Tobacco: Never Smokeless Tobacco: Never Alcohol Use Standard Drinks/Week Comments Yes 0 (1 standard drink = 0.6 oz pur e alcohol) social Sex and Gender Information Value Date Recorded Sex Assigned at Not on file 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 Gender Identity Not on file Sexual Orientation Straight 09/22/2019 8: 21 PM CDT documented as of this encounter Plan of Treatment Not on file documented as of this encounter Procedures Procedure Name Priority Date/Time Associated Diagnosis Comments SCAN - RADIOLOGY/IMAGING 06/28/2019 documented in this encounter Results * SCAN - RADIOLOGY/IMAGING (06/28/2019) Anatomical Region Laterality Modality Other us Provider Scanning Final Result documented in this encounter Visit Diagnoses Not on filedocumented in this encounter Care Teams Electro Mechanical Technician Relationship Specialty Start Date End Date Clara Stanley PA [address] [place] [address] PCP - General Nurse Practitioner 04/05/19 Jasper Canchola MD [address] [place] [address] Surgeon Thoracic Surgery 05/11/19 Alexis Lopez MD [address] [address] Director Mortgage Pulmonary Disease 05/11/19 Kip Del Rio MD [address] [facility] [address] [place] [address] Medical Oncologist/Investigation Division Lieutenant Hematology and Oncology 05/11/19 Jacob Flynn MD [address] [facility] [address] [place], [place] [id number] Radiation Oncologist Radiation Oncology 05/25/19 documented as of this encounter
--- OUTSIDE RECORDS SUMMARY | 2024-03-02 03:47 | XMS_ITS | Encounter Summary ---
Author Organization [facility] Address [address] [facility] [address] [place] [address] Care Team Providers Care Solderer Assembly Repair Name Role Phone Clara Stanley Primary Care Provider + Jasper Canchola MD Unavailable Alexis Lopez MD Unavailable Kip Del Rio MD Unavailable Jacob Flynn MD Unavailable Encounter Details Date Type Department Care Team (Late st Contact Info) Description 07/06/2019 Telephone [facility] Pulmonology [address] [facility] [address] [place] [address] Alexis Lopez MD [address] [facility] [address] [place] [address] Social History Tobacco Use Types Packs/Day Years Used Date Smoking Tobacco: Never Smokeless Tobacco: Never Alcohol Use Standard Drinks/Week Comments Yes 0 (1 standard drink = 0.6 oz pur e alcohol) social Sex and Gender Information Value Date Recorded Sex Assigned at Not on file 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 The patient is not had any chemotherapy. He was given a 10 day course of Augmentin and he will be completing that 1-2 days. He is coughing up clear phlegm and denies fevers or chills. He does have a history of allergies/sinus congestion. Five recommended 50 Hui 180 mg p.o. daily at bedtime and Flonase 2 puffs in each nostril in the morning. He already has the Hui at home. * Telephone Encounter - Deb Goodrich MA - 07/06/2019 10:04 AM CDT . documented in this encounter Plan of Treatment Not on file documented as of this encounter Visit Diagnoses Not on filedocumented in this encounter Care Teams Solderer Assembly Repair Relationship Specialty Start Date End Date Clara Stanley PA [address] [place] [address] PCP - General Nurse Practitioner 04/05/19 Jasper Canchola MD [address] [place] [address] Surgeon Thoracic Surgery 05/11/19 Alexis Lopez MD [address] [address] Line Repairer Tower Pulmonary Disease 05/11/19 Kip Del Rio MD [address] [facility] [address] [place] [address] Medical Oncologist/Fishing Worker Hematology and Oncology 05/11/19 Jacob Flynn MD [address] [facility] [address] [place] [address] Radiation Oncologist Radiation Oncology 05/25/19 documented as of this encounter
--- OUTSIDE RECORDS SUMMARY | 2024-03-02 03:47 | XMS_ITS | Encounter Summary ---
Author Organization [facility] Address [address] [facility] [address] [place] [address] Phone Care Team Providers Care Associate Professor Of Philosophy Name Role Phone Clara Stanley Primary Care Provider + Jasper Canchola MD Unavailable Alexis Lopez MD Unavailable Kip Del Rio MD Unavailable [phone] Jacob Flynn MD Unavailable Reason for Visit * Reason Onset Date Comments Med Refill 06/15/2019 Encounter Details Date Type Department Care Team (Late st Contact Info) Description 06/15/2019 Documentation [facility] Surgery [address] [facility] [address] 8th [place] [address] [place] [phone] Stephanie Bautista, ASPHALT TAR AND GRAVEL ROOFER [address] [facility] [id number] [place] [address] Med Refill Social History Tobacco Use Types Packs/Day Years Used Date Smoking Tobacco: Never Smokeless Tobacco: Never Alcohol Use Standard Drinks/Week Comments Yes 0 (1 standard drink = 0.6 oz pur e alcohol) social Sex and Gender Information Value Date Recorded Sex Assigned at Not on file 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 No / Unsure 05/26/2019 7:38 AM CDT documented as of this encounter Progress Notes * Stephanie Bautista NP - 06/15/2019 2:33 PM CDT Prescription for tramadol 50 mg take 1 capsule by mouth every 8 hours only as needed for pain # 40,no refills called into patient's local [facility] pharmacy. Forming And Assembling Supervisor completed using [employer] Direct speaking software, therefore, pattern attendant variances may occur. documented in this encounter Plan of Treatment Not on file documented as of this encounter Visit Diagnoses Not on filedocumented in this encounter Care Teams Associate Professor Of Philosophy Relationship Specialty Start Date End Date Clara Stanley PA [address] [place] [address] PCP - General Nurse Practitioner 04/05/19 Jasper Canchola MD [address] [place] [address] Surgeon Thoracic Surgery 05/11/19 Alexis Lopez MD [address] [address] Public Relations Supervisor Pulmonary Disease 05/11/19 Kip Del Rio MD [address] [facility] [address] [place] [address] Medical Oncologist/Clinical Research Spec Hematology and Oncology 05/11/19 Jacob Flynn MD [address] [facility] [address] [place] [address] Radiation Oncologist Radiation Oncology 05/25/19 documented as of this encounter
--- OUTSIDE RECORDS SUMMARY | 2024-03-02 03:47 | XMS_ITS | Encounter Summary ---
Author Organization [facility] Care Team Providers Care Trade Facilitator Name Role Phone Clara Stanley Primary Care Provider + Jasper Canchola MD Unavailable Alexis Lopez MD Unavailable [phone] Kip Del Rio MD Unavailable Jacob Flynn MD Unavailable Encounter Details Date Type Department Care Team (Latest Contact Info) Description 06/14/2019 Travel Social History Tobacco Use Types Packs/Day Years Used Date Smoking Tobacco: Never Smokeless Tobacco: Never Alcohol Use Standard Drinks/Week Comments Yes 0 (1 standard drink = 0.6 oz pur e alcohol) social Sex and Gender Information Value Date Recorded Sex Assigned at Not on file 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 Gender Identity Not on file Sexual Orientation [...] on filedocumented in this encounter Care Teams Trade Facilitator Relationship Specialty Start Date End Date Clara Stanley PA [address] [place] [address] PCP - General Nurse Practitioner 04/05/19 Jasper Canchola MD [address] [place] [address] [phone] Surgeon Thoracic Surgery 05/11/19 Alexis Lopez MD [address] [address] Measuring Machine Tender Pulmonary Disease 05/11/19 Kip Del Rio MD [address] [facility] [address] [place] [address] Medical Oncologist/Ditch Rider Hematology and Oncology 05/11/19 Jacob Flynn MD [address] [facility] [address] [place] [address] Radiation Oncologist Radiation Oncology 05/25/19 documented as of this encounter
--- OUTSIDE RECORDS SUMMARY | 2024-03-02 03:47 | XMS_ITS | Encounter Summary ---
Author Organization [facility] Healthcare Address [address] [place] [address] Care Team Providers Care Welder Journeyman Name Role Phone Clara Stanley Primary Care Provider + Jasper Canchola MD Unavailable Alexis Lopez MD Unavailable [phone] Kip Del Rio MD Unavailable Jacob Flynn MD Unavailable Encounter Details Date Type Department Care Team (Latest Contact Info) Description 06/28/2019 4:14 PM CDT - 06/28/2019 11:59 PM CDT Hospital Encounter [facility] [address] [place] [id number] Discharge Disposition: Discharge to home or self care Social History Tobacco Use Types Packs/Day Years Used Date Smoking Tobacco: Never Smokeless Tobacco: Never Alcohol Use Standard Drinks/Week Comments Yes 0 (1 standard drink = 0.6 oz pur e alcohol) social Sex and Gender Information Value Date Recorded Sex Assigned at Not on file Legal Sex Male 1:17 AM F[facility] DYER Gender Identity Not on file Sexual Orientation Straight 09/22/2019 8: 21 PM CDT documented as of this encounter Medications at Time of Discharge amLODIPine (NORVASC) 10 mg tabletIndications :hypertension Take 1 tablet (10 mg total) by mouth every morning 04/10/2019 amoxicillin-clavu lanate (AUGMENTIN) 875-125 mg per tabletIndications :Pneumonitis Take 1 tablet by mouth 2 (two) times a day for 10 days 20 tablet 06/28/2019 0 acetaminophen (TYLENOL) 325 mg tabletIndications :Fever,Pain Take [...] Comments XR TRANSFER OF OUTSIDE FILMS Routine 06/28/2019 4:14 PM CDT Diagnosis unknown documented in this encounter Results * XR Outside Reference (06/28/2019 4:14 PM CDT) Impressions [facility] - 06/28/2019 4:14 PM CDT These images are for Reference purposes only and have not been reviewed by [facility] Radiology. ??There will be no report generated by a [facility] Radiologist. Narrative [facility] - 06/28/2019 4:14 PM CDT EXAMINATION: ??Images For Reference Purposes Only us Jasper Canchola MD IMG XR PROCEDURES Final R esult [facility] documented in this encounter Visit Diagnoses Not on filedocumented in this encounter Care Teams Welder Journeyman Relationship Specialty Start Date End Date Clara Stanley PA [address] [place] [address] PCP - General Nurse Practitioner 04/05/19 Jasper Canchola MD [address] [place] [address] Surgeon Thoracic Surgery 05/11/19 Alexis Lopez MD [address] [facility] [address] [address] Work Study Student Pulmonary Disease 05/11/19 Kip Del Rio MD [address] [facility] [address] [place] [address] Medical Oncologist/Green Building Design Specialist Hematology and Oncology 05/11/19 Jacob Flynn MD [address] [facility] [address] [place] [address] Radiation Oncologist Radiation Oncology 05/25/19 documented as of this encounter
--- OUTSIDE RECORDS SUMMARY | 2024-03-02 03:47 | XMS_ITS | Encounter Summary ---
Author Organization [facility] Address [address] [place] [address] Care Team Providers Care Entry Level Manager Name Role Phone Clara Stanley Primary Care Provider + Jasper Canchola MD Unavailable Alexis Lopez MD Unavailable Kip Del Rio MD Unavailable Jacob Flynn MD Unavailable Encounter Details Date Type Department Care Team (Latest Contact Info) Description 05/26/2019 6:39 AM CDT - 05/30/2019 5:14 PM CDT Hospital Encounter [facility] [address] [place] [address] Jasper Canchola MD [id number] [place] [address] Malignant neoplasm of lower lobe of right lung (CMS/HCC); Acute post-operative pain; Acute post-thoracotomy pain Discharge Disposition: Discharge to home or self care Social History Tobacco Use Types Packs/Day Years Used Date Smoking Tobacco: Never Smokeless Tobacco: Never Alcohol Use Standard Drinks/Week Comments Yes 0 (1 standard drink = 0.6 oz pur e alcohol) social Sex and Gender Information Value Date Recorded Sex Assigned at Not on file 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 No / Unsure 05/26/2019 7:38 AM CDT documented as of this encounter Last Filed Vital Signs Vital Sign Reading Time Taken Comments Blood Pressure 149/71 05/30/2019 4:49 PM CDT Pulse 104 05/30/2019 4:49 PM CDT Temperature 37.1 ??C (98.8 ??F) 05/30/2019 4:49 PM CD T Respiratory Rate 18 05/30/2019 4:49 PM CDT Oxygen Saturation 96% 05/30/2019 4:49 PM CDT Inhaled Oxygen Concentration - - Weight 154.2 kg (340 lb) 05/26/2019 9:00 PM CDT Height 190.5 cm (6' 3 ) 05/26/2019 9:00 PM CDT Body Mass Index 42.5 05/26/2019 9:00 PM CDT documented in this encounter Discharge Diagnoses Diagnosis Malignant poorly differentiated neuroendocrine tumors (HCC) - MALIGNANT POORLY DIFFERENTIATED NEUROENDOCRINE TUMORS Body mass index (BMI) 40.0-44.9, adult - BODY MASS INDEX (BMI) 40.0-44.9, ADULT Hypo-osmolality and hyponatremia - HYPO-OSMOLALITY AND HYPONATREMIA Acute kidney failure, unspecified (HCC) - ACUTE KIDNEY FAILURE, UNSPECIFIED Acute kidney failure, unspecified Unspecified papilledema - UNSPECIFIED PAPILLEDEMA Essential (primary) hypertension - ESSENTIAL (PRIMARY) HYPERTENSION Unspecified essential hypertension Unspecified right bundle-branch block - UNSPECIFIED RIGHT BUNDLE-BRANCH BLOCK Morbid (severe) obesity due to excess calories (HCC) - MORBID (SEVERE) OBESITY DUE TO EXCESS CALORIES Benign intracranial hypertension - BENIGN INTRACRANIAL HYPERTENSION Other secondary neuroendocrine tumors (HCC) - OTHER SECONDARY NEUROENDOCRINE TUMORS documented in this encounter Discharge Summaries * [...] syringe 40 mg, 40 mg, subcutaneous, Daily-2099, 40 mg at 05/28/192250 ??? gabapentin (NEURONTIN) [...] of your care. Future Appointments Date Time Provider Department Center 06/17/2019 9:00 AM Jasper Canchola MD [address] Cosigned by Jasper Canchola MD at 05/31/2019 [...] soak in water. ?? Your sutures and/or rayn can be removed 14 days from the [...] RN - 05/30/2019 2:53 PM CDT 05/30/19 3225 Discharge Summary Chart reviewed For Medical Necessity Does patient have a planned readmission to hospital planned? No Discharge Disposition Home Equipment/Provider Needs No Home Needs Identified Discharge Additional Assistance Does the patient need discharge transport arranged? No Post Discharge Care Provider Post Discharge Care Plan Next level of care provider has access to complete EMR * Clementina Walker ACID PUMPER - 05/30/2019 11:00 AM CDT Pain Service [...] rest 2/10, with cough 3/10, with movement 06/23. No Known Allergies Scheduled Medications: [May] acetaZOLAMIDE ER, 500 mg, oral, BID [May] amLODIPine, 5 mg, oral, Daily [May] cyclobenzaprine, 10 mg, oral, TID [May] enoxaparin, 40 mg, subcutaneous, Daily-2100 [May] gabapentin, 300 mg, oral, Nightly [May] [...] [facility]- Acute Pain Service Department of Anesthesiology [facility], [facility] 05/30/2019 12:17 PM * John Fernando MD [...] 600 mg, 600 mg, oral, BID, Estrellita Reyes,TJ, 600 mg at 05/29/192045 ??? lidocaine (LIDODERM) [...] Daily, Shelby Mcdonough NP, 17 g at 05/29/19 0842 ??? pravastatin [...] MERLENE, Amy Chun MD, 10 mL at 05/29/199 ??? sodium chloride 0.9% flush 0.5-20 mL, [...] injury. Diet: ADAT Pain control: Epidural, D/c'd CONNIE CLEANER. POPM IS Bowel reg DVT prophylaxis CT [...] 1.35. Hyponatremia to 127 Hold acetazolamide. 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 Diet: ADAT Pain control: Epidural, D/c'd CONNIE CLEANER. POPM D/c IVF IS Bowel reg DVT [...] control currently with epidural @10ml/hr and HM CONNIE CLEANER. Patient plans to get up andwalk this afternoon. Patient has received 9.8mg of HM through CONNIE CLEANER in last 24 hours. Objective: Temp: [36.4 [...] Low: 90 Labs: Recent Labs Lab Units 05/27/19 2153 WBC K/cumm 26.1* HEMOGLOBIN g/dL 11.0* HEMATOCRIT % 34.4* PLATELETS K/cumm 301 Recent Labs Lab Units 05/27/19 2153 SODIUM mmol/L 127* POTASSIUM PLASMA mmol/L 3.7 [...] management - primary team planning on discontinuing CONNIE CLEANER and switching to oral medications today Epidural [...] PRN, Amy Chun MD, 650 mg at 05/27/19 1723 ??? acetaZOLAMIDE ER (DIAMOX SEQUAL) extended release capsule 500 mg, 500 mg, oral, BID, Amy Chun MD, 500 mg at 05/27/192038 ??? amLODIPine (NORVASC) tablet 5 mg, 5 mg, oral, Daily, Estrellita Reyes NP, 5 mg at 05/27/191530 ??? bupivacaine preservative free in 0.9% sodium chloride 250 mL 0.1 % (1,000 mcg/mL), , epidural, Continuous, Shelby Mcdonough NP, Last Rate: 10 mL/hr at 05/28/19 0300 ??? cyclobenzaprine (FLEXERIL) tablet 10 mg, 10 mg, oral, TID, Amy Chun MD, 10 mgat 05/27/191530 ??? enoxaparin (LOVENOX) syringe 40 mg, 40 mg, subcutaneous, Daily-2100, Amy Chun MD, 40 mg at 05/27/192037 [...] NP, Last Rate: 20 mL/hr at 05/28/19 0300, 20 mL/hr at 05/28/19 0300 ??? naloxone (NARCAN) 0.4 mg/mL injection 0.04-0.4 mg, 0.04-0.4 mg, intravenous, Q10 Min PRN, Adri Perepekhina-Belonog, ACID PUMPER ??? naloxone (NARCAN) 0.4 mg/mL injection 0.04-0.4 mg, 0.04-0.4 mg, intravenous, Once PRN, Amy Chun MD ??? ondansetron (ZOFRAN) injection 4 mg, 4 mg, intravenous, Q6H PRN, Amy Chun MD ??? polyethylene glycol (MIRALAX) packet 17 g, 17 g, oral, Daily, Shelby Mcdonough, TJ, 17 g at 05/27/19 1531 ??? pravastatin [...] [Urine:930; Chest Tube:938] I/O this shift: In: 0 [P.O.:1800; I.V.:180] Out: 1570 [Urine:1400; Chest Tube:170] [...] injury. Diet: ADAT Pain control: Epidural, D/c CONNIE CLEANER. POPM IVF: LR at 75 IS Bowel reg DVT prophylaxis CT to WS D/c'd beach, voiding D/c'd A-line, d/c'd OU status John Fernando Cosigned by Jasper Canchola MD at 05/29/2019 11:58 AM CDT * Shelby Tyson RN - 05/27/2019 1:59 PM CDT 05/27/19 4540 Information Information Obtained From Patient Prior to Admission Primary Caregiver Self Support System Spouse/Significant Other Support system contact info (name, phone, availablity) Pavan Kulkarni [phone] Durable Medical Equipment None Living Arrangements Spouse/significant other Type of Residence Private residence Steps in home? 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 Admit Source: home Problem/Goal: Patient awaits further evaluation for medical discharge needs and home needs. CM willassist patient with home needs as indicated and identified for safe discharge planning. Transportation: Cecilia Cuevas [phone] Through the course of our work I determined that Faith possess the skill and ability to provide andmonitor the care of the patient when he returns home. Cecilia Cuevas has the capacity to provide/monitor/arrange for the [...] Adult Diet Regular Diet effective now Question: ([facility]) Diet type Answer: Regular 05/27/19 0736 Assessment /Plan Impression: Tolerating oral diet; no N/V, NAD [] Pain is well controlled [x] Pain is moderately controlled [] Pain is poorly controlled Plan: [x] Continue multi-modal pain medication regimen as ordered. [x] Encourage pulmonary toilet [x] Continue bowel regimen. Epidural Local Anesthetic Infusion: [x] Increase to 10 ml/hr IV CONNIE CLEANER demand amount: [x] No Change Thank You [...] [facility]- Acute Pain Service Department of Anesthesiology [facility], [facility] 05/27/2019 12:55 PM * John [...] BID, Amy Chun MD, 500 mg at 05/26/192308 ??? bupivacaine preservative free in 0.9% sodium [...] 1 tablet, oral, BID, 1 tablet at 05/26/19 5297 OR senna 1.76 mg/mL syrup 8.8 mg, [...] Continuous, Amy Chun MD, 1,000 mL at 05/26/198 Objective Physical Exam: Constitutional: He is oriented [...] intermedius injury. Diet: ADAT Pain control: Epidural, CONNIE CLEANER. Increase epidural rate. IVF: LR at 75 [...] MD, Last Rate: 400 mL/hr at 05/26/19 181, 2,000 mg at 05/26/19 181 ??? cyclobenzaprine (FLEXERIL) tablet 10 mg, 10 [...] injury. 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 Center for Preoperative Assessment and Planning Preoperative Evaluation Record Evaluation type/location: [facility] Planned procedure site: [facility] (Pods 2/3/5/BRIEFCASE SEWER) Date: 05/13/19 Anesthesia Evaluation pM Kulkarni is a 54 y.o. male Procedure(s): [...] and grade I/ Negative for peripheral edema ([facility]) Pulmonary Exam: LCTA, bilat EENT Exam: [...] and agree to proceed. All questions answered. INE FORMER INE FORMER INE FORMER documented in this encounter Procedure Notes * [...] removed in 7-10 days by any MD, ACID PUMPER, sports teacher. Myrtle Haji MD documented in this encounter Nursing Notes * Imelda Ramesh RN - 05/30/2019 11:35 AM CDT Patient awaiting sign out from anesthesia. VSS as charted. He is awake, alert and oriented and denying pain. Will continue to monitor until transport back to room . 1235 Patient about to transport back to [facility], but was stopped as per pain management [...] Resident - Observing Anesthesiologist: Sam Castro MD COATING AND BAKING OPERATOR: Tirso Turner CRNA Kennel Operator: Matti Chau RN Scrub: Rik Fernandez RN Kennel Operator Second: Rickey Booker RN DATE OF SURGERY [...] Diagnostic flexible bronchoscopy. Surgeon Jasper Canchola MD Manager Fashion Amy Chun MD Anesthesia General. Clinical Note [...] no complications noted. Job ID/VF Job ID: [id number] * Plan of Care - Axel Aguirre [...] progressing in all ashraf * Plan of Dillan - Efraín Hutton RN - 05/29/2019 12:24 AM CDT Problem: [...] CDTAssociated Problem(s): LEIDA (acute kidney injury) (CMS/HCC) ([facility]) Elevated Cr of 1.35. Hyponatremia to 127 [...] Ambulation; Transition to PO pain meds; Stop CONNIE CLEANER Problem: Health Behavior: Goal: Understanding of discharge [...] rest; c/o some pain with coughing. IS MR=[id number]. Administered Acapella/PEP therapy; patient capable of self [...] with team during DCAM/rounds/progress notes today. DARIEN espinosa DC A-emigdio Feel free to contact me at [phone] with further inquiries' * Assessment & Plan [...] injury. Diet: ADAT Pain control: Epidural, D/c'd CONNIE CLEANER. POPM IS Bowel reg DVT prophylaxis CT [...] Resident - Assisting Anesthesiologist: Taj Perkins MD Kennel Operator: Rickey Booker RN; Deniz Livingston, KAMILA; Ruy Mcdowell RN Scrub Relief: Ruy Mcdowell RN Scrub: ST Froylan DATE OF SURGERY [...] plus modifier 22. Surgeon Jasper Canchola MD Manager Fashion Amy Chun MD, MPHS Anesthesia General. Clinical [...] this additional dissection and reconstruction required an additional 2 hours of operating time. Operative Procedure The [...] entire operative procedure. Job ID/VF Job ID: [id number] documented in this encounter Plan of Treatment [...] of lower lobe of right lung (CMS/HCC) THORACOTOMY LOBECTOMY 05/26/2019 9:19 AM CDT Malignant neoplasm of lower lobe of right lung (CMS/HCC) documented in this encounter Results * (ABNORMAL) Basic metabolic panel (05/30/2019 1:12 AM CDT) Sodium 129(L) 135 - 145 mmol/L [facility] Potassium, pl 3.6 3.3 - 4.9 mmol/L [facility] Chloride 98 97 - 110 mmol/L [facility] CO2 23 22 - 32 mmol/L [facility] Anion gap 8 2 - 15 mmol/L [facility] BUN 10 8 - 25 mg/dL [facility] Creatinine 0.70(L) 0.80 - 1.30 mg/dL [facility] Glucose 118 70 - 199 mg/dL [facility] Comment: Interpretive Data Fasting glucose >/= [...] 2017. Calcium 9.0 8.5 - 10.3 mg/dL [facility] Blood specimen (specimen) 05/30/2019 1:12 AM CDT 05/30/2019 1:25 AM CDT us Jasper Canchola MD LAB BLOOD ORDERABLES Marianne conde Result [facility] Department [place] [address] * XR Chest 1 View (05/29/2019 10:19 [...] CBC without differential (05/28/2019 10:57 PM CDT) WBC 20.6(H) 3.8 - 9.9 K/cumm [facility] Hgb 10.2(L) 13.0 - 17.5 g/dL [facility] Hct 30.6(L) 38.9 - 50.3 % [facility] Plt 288 150 - 400 K/cumm [facility] MPV 12.1 9.1 - 12.3 fL [facility] RBC 3.61(L) 4.30 - 5.80 M/cumm [facility] MCV 84.8 81.3 - 96.4 fL [facility] MCH 28.3 27.1 - 33.3 pg [facility] MCHC 33.3 32.3 - 35.7 g/dL [facility] RDW CV 13.9 11.1 - 14.9 % [facility] RDW SD 43.4 35.7 - 48.1 fL [facility] NRBC abs 0.00 0.00 - 0.01 K/cumm [facility] Blood specimen (specimen) 05/28/2019 10:57 PM CDT 05/28/2019 11:22 PM CDT Estrellita Reyes NP LAB BLOOD ORDERABLES Final Result [facility] Department [place] [address] * (ABNORMAL) Basic metabolic panel (05/28/2019 10:57 PM CDT) Sodium 131(L) 135 - 145 mmol/L [facility] Potassium, pl 3.8 3.3 - 4.9 mmol/L [facility] Chloride 100 97 - 110 mmol/L [facility] CO2 23 22 - 32 mmol/L [facility] Anion gap 8 2 - 15 mmol/L [facility] BUN 16 8 - 25 mg/dL [facility] Creatinine 0.77(L) 0.80 - 1.30 mg/dL [facility] Glucose 125 70 - 199 mg/dL [facility] Comment: Interpretive Data Fasting glucose >/= [...] 2017. Calcium 8.9 8.5 - 10.3 mg/dL [facility] Blood specimen (specimen) 05/28/2019 10:57 PM CDT 05/28/2019 11:23 PM CDT Estrellita Reyes NP LAB BLOOD ORDERABLES Final Result [facility] Department [place] [address] * XR Chest 1 View (05/28/2019 5:27 [...] by: Kathy Johnson M.D. us Estrellita Reyes ACID PUMPER IMG XR PROCEDURES Final Re sult * (ABNORMAL) Basic metabolic panel (05/27/2019 9:53 PM CDT) Sodium 127(L) 135 - 145 mmol/L [facility] Comment:Repeated and Verifie d Potassium, pl 3.7 3.3 - 4.9 mmol/L [facility] Chloride 95(L) 97 - 110 mmol/L [facility] Comment:Repeated and Verifie d CO2 25 22 - 32 mmol/L [facility] Anion gap 7 2 - 15 mmol/L [facility] BUN 20 8 - 25 mg/dL [facility] Creatinine 1.35(H) 0.80 - 1.30 mg/dL [facility] Comment:Repeated and Verifie d Glucose 123 70 - 199 mg/dL [facility] Comment: Interpretive Data Fasting glucose >/= [...] 2017. Calcium 8.9 8.5 - 10.3 mg/dL [facility] Blood specimen (specimen) 05/27/2019 9:53 PM CDT 05/27/2019 10:02 PM CDT us Myrtle Haji MD LAB BLOOD ORDERABLES Final Resul t [facility] Department [place] [address] * (ABNORMAL) CBC without differential (05/27/2019 9:53 PM CDT) [facility] WBC 26.1(H) 3.8 - 9.9 K/cumm [facility] Hgb 11.0(L) 13.0 - 17.5 g/dL [facility] Hct 34.4(L) 38.9 - 50.3 % [facility] Plt 301 150 - 400 K/cumm [facility] MPV 11.5 9.1 - 12.3 fL [facility] RBC 3.88(L) 4.30 - 5.80 M/cumm [facility] MCV 88.7 81.3 - 96.4 fL [facility] MCH 28.4 27.1 - 33.3 pg [facility] MCHC 32.0(L) 32.3 - 35.7 g/dL [facility] RDW CV 14.4 11.1 - 14.9 % [facility] RDW SD 46.1 35.7 - 48.1 fL [facility] NRBC abs 0.00 0.00 - 0.01 K/cumm [facility] Blood specimen (specimen) 05/27/2019 9:53 PM CDT 05/27/2019 10:02 PM CDT us Myrtle Haji MD LAB BLOOD ORDERABLES Final Resul t [facility] Department [place] [address] * (ABNORMAL) Basic metabolic panel (05/26/2019 11:15 PM CDT) [facility] Sodium 136 135 - 145 mmol/L [facility] Potassium, pl 4.0 3.3 - 4.9 mmol/L [facility] Chloride 106 97 - 110 mmol/L [facility] CO2 23 22 - 32 mmol/L [facility] Anion gap 7 2 - 15 mmol/L [facility] BUN 11 8 - 25 mg/dL [facility] Creatinine 0.66(L) 0.80 - 1.30 mg/dL [facility] Glucose 166 70 - 199 mg/dL [facility] Comment: Interpretive Data Fasting glucose >/= [...] 2017. Calcium 9.0 8.5 - 10.3 mg/dL [facility] Blood specimen (specimen) 05/26/2019 11:15 PM CDT 05/26/2019 11:49 PM CDT Jasper Canchola MD LAB BLOOD ORDERABLES Marianne conde Result [facility] Department [place] [address] * (ABNORMAL) CBC without differential (05/26/2019 11:15 PM CDT) WBC 24.3(H) 3.8 - 9.9 K/cumm [facility] Hgb 11.6(L) 13.0 - 17.5 g/dL [facility] Hct 35.9(L) 38.9 - 50.3 % [facility] Plt 291 150 - 400 K/cumm [facility] MPV 11.7 9.1 - 12.3 fL [facility] RBC 4.16(L) 4.30 - 5.80 M/cumm [facility] MCV 86.3 81.3 - 96.4 fL [facility] MCH 27.9 27.1 - 33.3 pg [facility] MCHC 32.3 32.3 - 35.7 g/dL [facility] RDW CV 13.8 11.1 - 14.9 % [facility] RDW SD 43.8 35.7 - 48.1 fL [facility] NRBC abs 0.00 0.00 - 0.01 K/cumm [facility] Blood specimen (specimen) 05/26/2019 11:15 PM CDT 05/26/2019 11:49 PM CDT Jasper Canchola MD LAB BLOOD ORDERABLES Marianne l Result Performing Organization Address [facility] de Phone Number [facility] [place] [address] * (ABNORMAL) Blood gas, arterial (05/26/2019 11:14 PM CDT) pH, Art 7.32(L) 7.35 - 7.45 [facility] PCO2, Arterial 41 35 - 45 mmHg [facility] PO2, Arterial 77(L) 83 - 108 mmHg [facility] HCO3 Art (Calculated) 22 20 - 30 mmol/L [facility] BE, art -5 mmol/L [facility] Comment: Interpretive Data No Reference Range Established Current Interpretive Data was last revised on 2017 O2 Sat Art (Measured) 95 90 - 95 % [facility] Blood specimen (specimen) 05/26/2019 11:14 PM CDT 05/26/2019 11:23 PM CDT Jasper Canchola MD LAB BLOOD ORDERABLES Marianne l Result Performing Organization Address [facility] de Phone Number [facility] Department [place] [address] * (ABNORMAL) Basic metabolic panel (05/26/2019 7:49 PM CDT) Sodium 139 135 - 145 mmol/L [facility] Potassium, pl 3.8 3.3 - 4.9 mmol/L [facility] Chloride 110 97 - 110 mmol/L [facility] CO2 21(L) 22 - 32 mmol/L [facility] Anion gap 8 2 - 15 mmol/L [facility] BUN 11 8 - 25 mg/dL [facility] Creatinine 0.68(L) 0.80 - 1.30 mg/dL [facility] Glucose 155 70 - 199 mg/dL [facility] Comment: Interpretive Data Fasting glucose >/= [...] 2017. Calcium 9.1 8.5 - 10.3 mg/dL [facility] Blood specimen (specimen) 05/26/2019 7:49 PM CDT 05/26/2019 8:13 PM CDT Jasper Canchola MD LAB BLOOD ORDERABLES Marianne conde Result [facility] Department [place] [address] * (ABNORMAL) CBC without differential (05/26/2019 7:49 PM CDT) WBC 25.0(H) 3.8 - 9.9 K/cumm [facility] Hgb 12.0(L) 13.0 - 17.5 g/dL [facility] Hct 37.1(L) 38.9 - 50.3 % [facility] Plt 288 150 - 400 K/cumm [facility] MPV 11.6 9.1 - 12.3 fL [facility] RBC 4.24(L) 4.30 - 5.80 M/cumm [facility] MCV 87.5 81.3 - 96.4 fL [facility] MCH 28.3 27.1 - 33.3 pg [facility] MCHC 32.3 32.3 - 35.7 g/dL [facility] RDW CV 13.9 11.1 - 14.9 % [facility] RDW SD 45.0 35.7 - 48.1 fL [facility] NRBC abs 0.00 0.00 - 0.01 K/cumm [facility] Blood specimen (specimen) 05/26/2019 7:49 PM CDT 05/26/2019 8:13 PM CDT Jasper Canchola MD LAB BLOOD ORDERABLES Marianne l Result [facility] [place] [address] * XR Chest 1 View - in [...] Body, Chest N/A Computed Radiogr aphy 05/26/2019 1:5 1 PM CDT Impressions 05/26/2019 2:59 PM CDT [...] resection) 05/26/2019 12:30 PM CDT Narrative PATHOLOGY [facility] - 06/02/2019 11:23 PM CDT EPIC results best viewed via link to PDF [facility] Surgical Pathology [facility] [place] [address] SURGICAL PATHOLOGY REPORT FINAL WITH ADDENDUM Patient Name: ?? MP KULKARNI Gender: ??M : ??[id number] (Age: 54) Address: ??[address] [place] [address] ??[id number] Hospital #: ??[id number] Taken:05/26/2019 Received:05/26/2019 Reported: 06/02/2019 Patient Type: [facility] Inpatient ?? Service: Cardiothoracic Location: [place] [address] Physician(s): ??Jasper Canchola M.D. KALPANA Lema M.D. [...] in one of four peribronchial/hilar lymph nodes (03/19) - See comment and synoptic G. Lymph [...] of malignancy in one lymph nodes (0/1) iag/06/02/2019 13:32 By this signature, I attest that [...] lung, with prior node biopsies showing metastases ([id number]). ??Operative procedure: Thoracotomy, right lower lobectomy, and [...] O1- bisected node; O2-fibroadipose tissue. ??Jar 0. s/05/28/2019 11:39 Gross Resident:Patric Claire MD ? CANCER [...] determined by the Surgical Pathology Department at [facility] as part of an ongoing quality cloth tester program and in compliance with federally mandated [...] determined by the Surgical Pathology Department of [facility]. ??It has not been cleared or approved by the U. S. Food and Drug Administration. IMAGES AND SCANNED DOCUMENTS, IF INCLUDED, ONLY VIEWABLE IN PDF VERSION OF REPORT Jasper Canchola MD LAB PATHOLOGY ORDERABLES Final Result PATHOLOGY [facility] 3rd Floor [place], [place] [phone] documented in this encounter Visit Diagnoses Diagnosis Malignant neoplasm of lower lobe of right lung (HCC)- Primary Malignant neoplasm of lower lobe of right lung (HCC) Acute post-operative pain Acute post-thoracotomy pain LEIDA (acute kidney injury) (HCC) documented in this encounter Admitting Diagnoses Diagnosis Malignant neoplasm of lower lobe of right lung (HCC) documented in this encounter Administered Medications Inactive Administered Medications - up to 3 most recent administrations Medication Order MAR Action Action Date Dose Rate Site acetaminophen (TYLENOL) tablet 1,000 mg 1,000 mg, oral, Once, On Priscila 05/26/19 at 0815, For 1 dose, Pre-Op, Indications: Pre-Emptive AnalgesiaIndications:Pre-Emptive Analgesia Given 05/26/2019 8:01 AM CDT 1,000 mg acetaminophen (TYLENOL) tablet 650 mg 650 mg, [...] Given 05/28/2019 8:59 AM CDT 5 mg bupivacaine preservative free in 0.9% sodium chloride 250 mL 0.1 % (1,000 mcg/mL) Continuous Rate: 8 mL/hr, Patient Bolus Dose: none, epidural, Continuous, Starting on Priscila 05/26/19 at 1130, Until Thu05/27/19 at 1021, 250 mL, Indications: Pain, RoutineIndications:Pain New Bag 05/26/2019 2:00 PM CDT 8 mL/hr bupivacaine preservative free in 0.9% sodium chloride 250 mL 0.1 % (1,000 mcg/mL) Continuous Rate: 10 mL/hr, Patient Bolus Dose: none, epidural, Continuous, Starting on Thu05/27/19 at 1100, Until 05/30/19 at 1440, 250 mL, Indications: Pain, RoutineIndications:Pain Rate/Dose Verify 05/30/2019 8:25 AM CDT 10 mL/hr Rate/Dose Verify 05/30/2019 4:00 AM CDT 10 mL/h r Rate/Dose Verify 05/30/2019 3:00 AM CDT 10 mL/h r ceFAZolin (ANCEF) 2,000 mg/20 mL in sterile water (premix) 2,000 mg 2,000 mg, intravenous, at 400 mL/hr, Administer over 3 Minutes, Every 8 hours, First dose on Priscila 05/26/19 at 1815, For 2 doses, Start 8 hours after darrion-operative dose. , Indications: Prophylaxis, Surgical, Skin/Soft Tissue InfectionIndications:Prophylaxis, Surgical,Skin/Soft Tissue Infection New Bag 05/27/2019 2:27 AM CDT 2,000 mg 400 mL/hr New Bag 05/26/2019 6:13 PM CDT 2,000 mg 400 mL/hr cyclobenzaprine (FLEXERIL) tablet 10 mg 10 mg, [...] (NEURONTIN) capsule 300 mg 300 mg, oral, Once, On Priscila 05/26/19 at 0815, For 1 dose, Pre-Op, Indications: Pre-Emptive AnalgesiaIndications:Pre-Emptive Analgesia Given 05/26/2019 8:01 AM CDT 3 00 mg gabapentin (NEURONTIN) capsule 300 mg 300 mg, oral, 3 times daily, First dose on Priscila 05/26/19 at 2200 Given 05/27/2019 8:38 PM CDT 300 mg Given 05/27/2019 3:31 PM CDT 300 mg Given 05/27/2019 8:42 AM CDT 300 mg gabapentin (NEURONTIN) capsule 300 mg 300 mg, oral, Nightly, First dose (after last modification) on 05/28/19 at 2100 Given 05/29/2019 8:46 PM CDT 300 mg Given 05/28/2019 8:49 PM CDT 300 mg guaiFENesin ER (MUCINEX) extended release tablet 600 mg 600 mg, oral, 2 times daily, First dose on Thu05/27/19 at 1600, For 3 days, Do not crush, chew, cut, dissolve, open or otherwise manipulate tablet/capsule. Given 05/30/2019 7:48 AM CDT 600 mg Given 05/29/2019 8:46 PM CDT 600 mg Given 05/29/2019 8:54 AM CDT 600 mg HYDROmorphone (DILAUDID) injection 0.2 mg 0.2 mg, intravenous, Administer over 2 Minutes, Every 10 min PRN, 1st line for pain, Starting on Priscila 05/26/19 at 1454, Phase I, Switch to 2nd line analgesic order if pain is uncontrolled or increasing after 2 doses. Notify Anesthesiologist if total PACU dose reaches 2 mg and pain score 5/10 or more., Indications: PainIndications:Pain Given 05/26/2019 3:10 PM CDT 0.2 mg Given 05/26/2019 2:55 PM CDT 0.2 mg HYDROmorphone in 0.9% sodium chloride (DILAUDID) 20 mg/100 mL (0.2 mg/mL) infusion (premix) Continuous dose: None, CONNIE CLEANER dose: 0.2 mg, CONNIE CLEANER lockout: 10 Minutes, 1 hour limit: Other / 1.2 mg, intravenous, Continuous, Starting on Priscila 05/26/19 at 1445, Until 05/28/19 at 0909, 100 mL, Indications: Pain, RoutineIndications:Pain New Syringe/Cartridge 05/28/2019 2:00 AM CDT New Syringe/Cartridge 05/26/2019 2:25 PM CDT 20 mg ibuprofen (ADVIL,MOTRIN) tablet 600 mg 600 mg, oral, Once, On Priscila 05/26/19 at 0815, For 1 dose, Pre-Op, Indications: Pre-Emptive AnalgesiaIndications:Pre-Emptive Analgesia Given 05/26/2019 8:01 AM CDT 6 00 mg ketorolac (TORADOL) 15 mg/mL injection 15 mg 15 mg, intravenous, Every 6 hours, First dose on Priscila 05/26/19 at 2200, For 4 doses, For Adult IV push, administer over 15 seconds Given 05/27/2019 3:31 PM CDT 15 mg Given 05/27/2019 9:27 AM CDT 15 mg Given 05/27/2019 3:50 AM CDT 15 mg Lactated Ringer's (LR) infusion 50 mL/hr, intravenous, Continuous, Starting on Priscila 05/26/19 at 0815, Pre-Op Rate/Dose Change 05/26/2019 9:04 AM CDT 50 mL/hr New Bag 05/26/2019 8:10 AM CDT 50 mL/hr 50 mL/hr Lactated Ringer's (LR) infusion 75 mL/hr, intravenous, Continuous, Starting on Priscila 05/26/19 at 1445, Phase I & Post-op Floor, For 1L then stop New Bag 05/27/2019 4:30 AM CDT 75 mL/hr 75 mL/hr New Bag 05/26/2019 2:58 PM CDT 75 mL/hr 75 mL/hr Lactated Ringer's (LR) infusion 20 mL/hr, intravenous, Continuous, Starting on Thu05/27/19 at 0930, For 1L then stop Rate/Dose Verify 05/28/2019 6:00 PM CDT 20 mL/hr 20 mL/hr Rate/Dose Verify 05/28/2019 5:00 PM CDT 20 mL/hr 20 mL/h r Rate/Dose Verify 05/28/2019 4:00 PM CDT 20 mL/hr 20 mL/h r lidocaine (LIDODERM) 5 % patch 1 patch 1 patch, transdermal, Administer over 12 Hours, Daily, First dose on 05/28/19 at 1815, Do not cover the holes on the top side of the patch., Apply to affected area: chest Medication Applied 05/29/2019 8:42 AM CDT 1 patch Back Medication Applied 05/28/2019 5:50 PM CDT 1 patch Back lidocaine (XYLOCAINE) 10 mg/mL (1 %) injection 40 mg 40 mg (4 mL), subcutaneous, Once, On Priscila 05/26/19 at 0945, For 1 dose, Pre-Op, Indications: Administration of Local Anesthesia, Regional Anesthesia for Surgery, for thoracic epiduralIndications:Administrati on of Local Anesthesia,Regional Anesthesia for Surgery,for thoracic epidural Given 05/26/2019 9:16 AM CDT 4 mL Other (Comment) magnesium sulfate 2 g/50 mL in water (premix) 2 g 2 g, intravenous, Administer over 60 Minutes, Once, On Priscila 05/26/19 at 2030, For 1 dose, Phase I New Bag 05/26/2019 7:57 PM CDT 2 g oxyCODONE (ROXICODONE) tablet 10 mg 10 mg, oral, Every 4 hours PRN, 2nd line for pain, Starting on 05/28/19 at 1730, Indications: PainIndications:Pain Given 05/29/2019 5:40 AM CDT 10 mg Given 05/29/2019 1:22 AM CDT 10 mg Given 05/28/2019 8:49 PM CDT 10 mg oxyCODONE (ROXICODONE) tablet 10 mg 10 mg, oral, Every 3 hours PRN, 2nd line for pain, Starting on 05/29/19 at 0745, Indications: PainIndications:Pain Given 05/30/2019 4:45 PM CDT 10 mg Given 05/30/2019 1:10 PM CDT 10 mg Given 05/30/2019 7:48 AM CDT 10 mg oxyCODONE (ROXICODONE) tablet 5 mg 5 mg, oral, Every 4 hours PRN, 2nd line for pain, Starting on 05/28/19 at 0909, Indications: PainIndications:Pain Given 05/28/2019 4:53 PM CDT 5 mg Given 05/28/2019 11:56 AM CDT 5 mg polyethylene glycol (MIRALAX) packet 17 g [...] Given 05/28/2019 6:40 PM CDT 10 mL sodium chloride 0.9% solution 1,000 mL 1,000 mL, intra-catheter, Continuous, Starting on Priscila 05/26/19 at 2200, With 300 mmHg to maintain patency. New Bag 05/26/2019 9:28 PM CDT 1,000 mL documented in this encounter Discontinued Medications [...] Keke Pratt NP)0804 (Given - Provider: Matteo Hernandez, KAMILA)0930 (MAR Hold - Provider: Automatic Transfer Provider - Reason: Patient not available)1257 (MAR Unhold - Provider: Automatic Transfer Provider) amLODIPine (NORVASC) tablet 5 mg 5 mg, oral, Daily, First dose on Thu05/27/19 at 1345 0859 (Given - Provider: Du Anderson RN) 0841 (Given - Provider: Mp Matos, KAMILA) 0751 (Given - Provider: Matteo Hernandez, KAMILA)0930 (MAR Hold - Provider: Automatic Transfer Provider - Reason: Patient not available)1257 (MAR Unhold - Provider: Automatic Transfer Provider) cyclobenzaprine (FLEXERIL) tablet 10 mg 10 mg, oral, 3 times daily, First dose on Priscila 05/26/19 at 2200 0903 (Not Given - Provider: Du Anderson RN - Reason: Patient/family refused - Comment: Does not need)1545 (Hold - Provider: Du Anderson RN - Reason: Patient/family refused)204 (Not Given - Provider: Efraín Hutton RN - Reason: Patient/family refused) 0841 (Given - Provider: Mp Matos, KAMILA)1702 (Given - Provider: Mp Matos, RN)204 (Not Given - Provider: Axel Aguirre RN - Reason: Patient/family refused) 0749 (Given - Provider: Matteo Hernandez, KAMILA)0930 (MAY Hold - Provider: Automatic Transfer Provider - Reason: Patient not available)1257 (MAY Unhold - Provider: Automatic Transfer Provider)1645 (Given - Provider: Matteo Hernandez, KAMILA) enoxaparin (LOVENOX) syringe 40 mg 40 mg, subcutaneous, Daily (for enoxaparin), First dose on Priscila 05/26/19 at 2200, Indications: Deep Vein Thrombosis Prevention 2251 (Given - Provider: Efraín Hutton RN) 2047 (Not Given - Provider: Axel Aguirre RN - Reason: Hold for Procedure - Comment: RN was toldto hold lovenox this PM.) 0930 (MAY Hold - Provider: Automatic Transfer Provider - Reason: Patient not available)1257 (MAY Unhold - Provider: Automatic Transfer Provider) gabapentin (NEURONTIN) capsule 300 mg 300 mg, oral, Nightly, First dose (after last modification) on 05/28/19 at 2100 2049 (Given - Provider: Efraín Hutton RN) 204 (Given - Provider: Axel Aguirre RN) 0930 (MAY Hold - Provider: Automatic Transfer Provider - Reason: Patient not available)1257 (MAY Unhold - Provider: Automatic Transfer Provider) guaiFENesin ER (MUCINEX) extended release tablet 600 mg (COMPLETED) 600 mg, oral, 2 times daily, First dose on Thu05/27/19 at 1600, For 3 days, Do not crush, chew, cut, dissolve, open or otherwise manipulate tablet/capsule. 0859 (Given - Provider: Du Anderson RN)2048 (Given - Provider: Efraín Hutton RN) 0854 (Given - Provider: Mp Matos RN)204 (Given [...] Hutton RN)0842 (Medication Applied - Provider: Mp Matos, KAMILA)2048 (Medication Removed - Provider: Axel Aguirre RN) 0903 (Not Given - Provider: Matteo Hernandez RN - Reason: Other)0930 (MAR Hold - Provider: Automatic Transfer Provider - Reason: Patient not available)1257 (MAR Unhold - Provider: Automatic Transfer Provider) polyethylene glycol (MIRALAX) packet 17 g 17 g, oral, Daily, First dose on Thu05/27/19 at 1100, Indications: constipation 0902 (Given - Provider: Du Anderson RN) 0842 (Given - Provider: Mp Matos, KAMILA) 0741 (Not Given - Provider: Matteo Hernandez RN - Reason: NPO)0930 (MAR Hold - Provider: Automatic Transfer Provider - Reason: Patient not available)1257 (MAR Unhold - Provider: Automatic Transfer Provider) pravastatin (PRAVACHOL) tablet 20 mg 20 mg, oral, Every morning, First dose on Thu05/27/19 at 0900, Indications: hyperlipidemia 0859 (Given - Provider: Du Anderson, KAMILA) 0841 (Given - Provider: Mp Matos, KAMILA) 0748 (Given - Provider: Matteo Hernandez, KAMILA)0930 (MAR Hold - Provider: Automatic Transfer Provider - Reason: Patient not available)1257 (MAR Unhold - Provider: Automatic Transfer Provider) senna (SENOKOT) tablet 1 tablet(Linked Group 1) 1 tablet, oral, 2 times daily, First dose on Thu05/26/19 at 2200, If able to swallow medications. Hold for diarrhea., Indications: constipation 0902 (Given - Provider: Du Anderson RN)2049 (Given - Provider: Efraín Hutton RN) 0841 (Given - Provider: Mp Matos RN)2046 (Given - Provider: Axel Aguirre RN) 0748 (Given - Provider: Matteo Hernandez, KAMILA)0930 (MAY Hold - Provider: Automatic Transfer Provider - Reason: Patient not available)1257 (MAY Unhold - Provider: Automatic Transfer Provider) sodium [...] - Reason: Other)1703 (Given - Provider: Mp Matos RN)2239 (Given - Provider: Axel Aguirre RN) 0600 (Due)0930 (MAY Hold - Provider: Automatic Transfer Provider - Reason: Patient not available)1257 (MAY Unhold - Provider: Automatic Transfer Provider)1345 (Not [...] Anderson RN)1400 (Rate/Dose Verify - Provider: Du Anderson, KAMILA)1500 (Rate/Dose Verify - Provider: Du Anderson RN)1600 (Rate/Dose Verify - Provider: Du Anderson RN)1700 (Rate/Dose Verify - Provider: Du Anderson RN)1800 (Rate/Dose Verify - Provider: Du Anderson RN)1900 (Rate/Dose Verify - Provider: Du Anderson RN)2049 (New Bag - Provider: Efraín Hutton RN) 1900 (Rate/Dose Verify - Provider: Axel Aguirre RN)2200 (Rate/Dose Verify - Provider: Axel Aguirre RN)2210 (New Bag - Provider: Axel Aguirre RN) 0000 (Rate/Dose Verify - Provider: Axel Aguirre RN)0100 (Rate/Dose Verify - Provider: Axel Aguirre RN)0300 (Rate/Dose Verify - Provider: Axel Aguirre, KAMILA)0400 (Rate/Dose Verify - Provider: Axel Aguirre, KAMILA)0430 (Canceled Entry - Provider: Axel Aguirre RN)0825 (Rate/Dose Verify - Provider: Matteo Hernandez RN)1040 (Continued from OR - Provider: Imelda Ramesh RN) HYDROmorphone in 0.9% sodium chloride (DILAUDID) 20 mg/100 mL (0.2 mg/mL) infusion (premix) (CANCELED) Continuous dose: None, CONNIE CLEANER dose: 0.2 mg, CONNIE CLEANER lockout: 10 Minutes, 1 hour limit: Other [...] (Given - Provider: Du Anderson RN) 0930 ([facility] Hold - Provider: Automatic Transfer Provider - Reason: Patient not available)1257 ([facility] Unhold - Provider: Automatic Transfer Provider) lidocaine [...] over 30 seconds., Indications: Opioid Toxicity 0930 ([facility] Hold - Provider: Automatic Transfer Provider - Reason: Patient not available)1257 ([facility] Unhold - Provider: Automatic Transfer Provider) ondansetron (ZOFRAN) injection 4 mg 4 mg, intravenous, Administer over 2 Minutes, Every 6 hours PRN, nausea, vomiting, Starting on Priscila 05/26/19 at 2127, Administer no sooner than 6 hours after last dose. , Indications: Nausea and Vomiting 0930 ([facility] Hold - Provider: Automatic Transfer Provider - Reason: Patient not available)1257 ([facility] Unhold - Provider: Automatic Transfer Provider) oxyCODONE [...] Indications: Pain 0842 (Given - Provider: Mp Matos, KAMILA)1303 (Given - Provider: Mp Matos, KAMILA)1701 (Given - Provider: Mp Matos RN)2046 (Given - Provider: Axel Aguirre RN) 0059 (Given - Provider: Axel Aguirre RN)0425 (Given - Provider: Axel Aguirre RN)0748 (Given - Provider: Mateto Hernandez RN)0930 (MAY Hold - Provider: Automatic Transfer Provider - Reason: Patient not available)1257 (MAR Unhold - Provider: Automatic Transfer Provider)1310 (Given - Provider: Matteo Hernandez RN)1645 (Given - Provider: Matteo Hernandez RN) oxyCODONE (ROXICODONE) tablet 5 mg (CANCELED) 5 mg, oral, Every 4 hours PRN, 2nd line for pain, Starting on 05/28/19 at 0909, Indications: Pain 1156 (Given - Provider: Du Anderson RN)1653 (Given - Provider: Du Anderson, KAMILA) sodium chloride 0.9% flush 0.5-20 mL 0.5-20 mL, intra-catheter, As needed, line care, Starting on Priscila 05/26/19 at 2127, Flush volume based on line type and size. Flush before and after each use. 1840 (Given - Provider: Du Anderson RN) 0930 (MAR Hold - Provider: Automatic Transfer Provider - Reason: Patient not available)1257 (MAR Unhold - Provider: Automatic Transfer Provider) Linked [...] Ordered Date HYDROmorphone (DILAUDID) injection 0.2 mg 1 05/30/2019 lidocaine PF (XYLOCAINE) 10 mg/mL (1 %) preservative free injection 1 05/30/2019 naloxone (NARCAN) 0.4 mg/mL injection 0.04-0.4 mg 3 05/30/2019 05/26/2019 ondansetron (ZOFRAN) injection 4 mg 3 05/2905/26/2019 albumin 5 % bottle 12.5 g 1 05/26/2019 bupivacaine preservative francisca e in 0.9% sodium chloride 250 mL 0.1 % (1,000 mcg/mL) 1 05/26/2019 heparin 5,000 unit/mL inject ion 5,000 Units 1 05/26/2019 HYDROmorphone (DILAUDID) injection 0.4 mg 1 05/26/2019 norepinephrine in dextrose 5 % (LEVOPHED) 8,000 mcg/250 mL (32 mcg/mL) infusion (premix) 1 05/26/2019 senna 1.76 mg/mL syrup 8.8 mg 1 05/26/2019 sodium chloride 0.9 % irrigation 1 05/26/19 20 sodium chloride 0.9% flush 0.5-20 mL 2 05/14 sterile water irrigation 1 05/26/2019 Imaging Orders [...] 05/27/2019 documented in this encounter Care Teams Entry Level Manager Relationship Specialty Start Date End Date Clara Stanley PA [address] [place] [id number] PCP - General Nurse Practitioner 04/05/19 Jasper Canchola MD [address] [place] [address] Surgeon Thoracic Surgery 05/11/19 Alexis Lopez MD [address] [address] Trash Truck Driver Pulmonary Disease 05/11/19 Kip Del Rio MD [address] [facility] [address] [place] [address] Medical Oncologist/Eyelet Riveter Hematology and Oncology 05/11/19 Jacob Flynn MD [address] [facility] [address] [place] [address] Radiation Oncologist Radiation Oncology 05/25/19 documented as of this encounter
--- OUTSIDE RECORDS SUMMARY | 2024-03-02 03:47 | XMS_ITS | Encounter Summary ---
Author Organization [facility] Address [address] [place] [address] Care Team Providers Care Perfumer Name Role Phone Clara Stanley Primary Care Provider + Jasper Canchola MD Unavailable Alexis Lopez MD Unavailable [phone] Kip Del Rio MD Unavailable Jacob Flynn MD Unavailable Reason for Referral * Diagnostic Imaging (Routine) - Closed Specialty Diagnoses / Procedures Referred By Erik t Referred To Contact Diagnoses Cough Productive cough Pleural effusion Procedures XR Chest Pa Lateral 2 Views Alexis Lopez MD [address] [facility] [address] [place] [address] [place] [address] Phone: tel: fax: [address] [phone] Referral ID Status Reason Start Date Expiration Date Visits Re quested Visits Authorized [id number] Closed 07/04/2019 01/12/2021 1 1 Encounter Details Date Type Department Care Team (Late st Contact Info) Description 07/05/2019 9:51 AM CDT Hospital Encounter M[facility] OP INTERIM Alexis Lopez MD [address] [facility] [address] [place] [address] [place] [id number] Cough; Productive cough; Pleural effusion Social History Tobacco Use Types Packs/Day Years Used Date Smoking Tobacco: Never Smokeless Tobacco: Never Alcohol Use Standard Drinks/Week Comments Yes 0 (1 standard drink = 0.6 oz pur e alcohol) social Sex and Gender Information Value Date Recorded Sex Assigned at Not on file 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 D.O.B: 1965 ? Exam Date: 04/21/20 ?? 0954 ?? Age: 54 ?Sex: Male ? MR#: [id number] ?? Loc: ? RADIOLOGY REPORT ?? Order #[id number] ?? Radiology ? Chest 2 Views ? Signed ? EXAM DESCRIPTION: ??Chest 2 Views ? REASON FOR STUDY: ??Patient states had lung cancer surgery 05-26-19 and has had ?? cough since then, right lower lobe removed ? TECHNIQUE: ??Frontal and lateral radiographic views of the chest acquired. ? COMPARISON: ??Chest radiograph dated May 06, 2019 ? FINDINGS: ? LUNGS/PLEURA: There is a new small right-sided pleural effusion with ?? subsegmental atelectasis. ??The lungs are otherwise clear. ??Pulmonary vascular ?? is within normal limits. ??No pneumothorax. ? HEART/MEDIASTINUM: Heart size is normal. Normal mediastinal and hilar contours. ? HARDWARE/LINES/TUBES: None. ? BONES: No acute findings. ? OTHER: No other significant finding. ? IMPRESSION: ??New small to moderate right-sided pleural effusion with linear ?? airspace opacity likely representing subsegmental atelectasis. ? THIS IS AN ELECTRONICALLY VERIFIED FINAL REPORT ?? 07/05/2019 10:06 AM - Electronically signed by Joaquim Botello M.D. ?? Joaquim Botello M.D. ? JA: TATIANA ?? D: ??07/05/2019 10:06 AM ?? T: ??07/05/2019 10:06 AM ? Report ID: [id number] ?? Reading Location: ??[id number] ? REPORT ELECTRONICALLY SIGNED IN OTHER VENDOR SYSTEM ?? Resulting Agency Comment O Procedure Note Joaquim Botello MD - 07/05/2019 Patient Name: KWAKU BULLOCK Dr: Alexis Lopez MD D.O.B: 1965 Exam Date: 07/05/19 0954 Age: 54 Sex: Male MR#: [id number] Loc: RADIOLOGY REPORT Order #[id number] Radiology Chest 2 Views Signed EXAM DESCRIPTION: Chest 2 Views REASON FOR STUDY: Patient states had lung cancer surgery 05-26-19 and hashad cough since then, right lower lobe removed TECHNIQUE: Frontal and lateral radiographic views of the chest acquired. COMPARISON: Chest radiograph dated May 06, 2019 FINDINGS: LUNGS/PLEURA: There is a new small right-sided pleural effusion with subsegmental atelectasis. The lungs are otherwise clear. Pulmonaryvascular is within normal limits. No pneumothorax. HEART/MEDIASTINUM: Heart size is normal. Normal mediastinal and hilarcontours. HARDWARE/LINES/TUBES: None. BONES: No acute findings. OTHER: No other significant finding. IMPRESSION: New small to moderate right-sided pleural effusion withlinear airspace opacity likely representing subsegmental atelectasis. THIS IS AN ELECTRONICALLY VERIFIED FINAL REPORT 07/05/2019 10:06 AM - Electronically signed by Joaquim SIMPSON: TATIANA Report ID: [id number] Reading Location: [id number] REPORT ELECTRONICALLY SIGNED IN OTHER VENDOR SYSTEM Alexis Lopez MD IMG XR PROCEDURES Final R esult documented in this encounter Visit Diagnoses Diagnosis Cough Productive cough Cough Pleural effusion Unspecified pleural effusion documented in this encounter Care Teams Perfumer Relationship Specialty Start Date End Date Clara Stanley PA [address] [place] [phone] PCP - General Nurse Practitioner 04/05/19 Jasper Canchola MD [address] [place] [address] Surgeon Thoracic Surgery 05/11/19 Alexis Lopez MD [address] [address] Parts Room Associate Pulmonary Disease 05/11/19 Kip Del Rio MD [address] [facility] [address] [place] [address] Medical Oncologist/Product Safety Professional Hematology and Oncology 05/11/19 Jacob Flynn MD [address] [facility] [address] [place] [address] Radiation Oncologist Radiation Oncology 05/25/19 documented as of this encounter
--- OUTSIDE RECORDS SUMMARY | 2024-03-02 03:47 | XMS_ITS | Encounter Summary ---
Author Organization [facility] Address [address] [place] [address] Care Team Providers Care Repair Coil Winder Name Role Phone Clara Stanley Primary Care Provider + Jasper Canchola MD Unavailable Alexis Lopez MD Unavailable Kip Del Rio MD Unavailable Jacob Flynn MD Unavailable [phone] Encounter Details Date Type Department Care Team (Late st Contact Info) Description 05/26/2019 8:20 AM CDT - 05/26/2019 1:00 PM CDT Surgery [facility] Operating Room [address] [place] [address] Jasper Canchola MD [id number] [place] [address] THORACOTOMY LOBECTOMY / lymph node disection Surgery Details Date/Time Status Location OR Service Patient Class Case Class Case Type Trauma Case? 05/26/2019 8:20 AM Posted [facility] OR POD 3 304 Cardiothoracic Surgery Admit Elective Panel 1 Procedure LRB Anes Op Region Wound Class Comments THORACOTOMY LOBECTOMY / lymp h node disection Right General Chest Class I - Clean Surgeon Surgeon Role Service Panel Jasper Canchola MD Primary Cardiothoracic 1 Amy Chun MD Resident - Assisting Ge neral Surgery 1 Myrtle Haji MD Resident - Assisting General Surgery 1 documented in this encounter Social History Tobacco Use Types Packs/Day Years Used Date Smoking Tobacco: Never Smokeless Tobacco: Never Alcohol Use Standard Drinks/Week Comments Yes 0 (1 standard drink = 0.6 oz pur e alcohol) social Sex and Gender Information Value Date Recorded Sex Assigned at Not on file Legal Sex Male 1:17 AM PRESS CATCHER Gender Identity Not on file Sexual Orientation Straight 09/22/2019 8: 21 PM CDT COVID-19 Exposure Response Date Recorded In the last month, have you been in contact with someone who was confirmed or suspected to have Coronavirus / COVID-19? No / Unsure 05/26/2019 7:38 AM CDT documented as of this encounter Last Filed Vital Signs Vital Sign Reading Time Taken Comments Blood Pressure 155/89 05/26/2019 8:10 AM CDT Pulse 86 05/26/2019 8:10 AM CDT Temperature 36 ??C (96.8 ??F) 05/26/2019 7:49 AM CDT Respiratory Rate 30 05/26/2019 8:10 AM CDT Oxygen Saturation 98% 05/26/2019 8:10 AM CDT Inhaled Oxygen Concentration - - Weight - - Height - - Body Mass Index - - documented in this encounter Discharge Summaries * Keek Pratt NP - 05/30/2019 1:08 PM CDT [...] oral, Q4H PRN, 650 mg at 05/28/19 7539 ??? acetaZOLAMIDE ER (DIAMOX SEQUAL) extended release [...] 40 mg, subcutaneous, Daily-2100, 40 mg at 05/28/19 225 ??? gabapentin [...] Center 06/17/2019 9:00 AM Jasper Canchola MD [facility] [address] [place] Cosigned by Jasper Canchola MD [...] movement 4/10. No Known Allergies Scheduled Medications: [May] acetaZOLAMIDE ER, 500 mg, oral, BID [May] amLODIPine, 5 mg, oral, Daily [May] cyclobenzaprine, 10 mg, oral, TID [May] enoxaparin, 40 mg, subcutaneous, Daily-2100 [May] gabapentin, 300 mg, oral, Nightly [May] lidocaine, 1 patch, transdermal, Daily [May] polyethylene glycol, 17 g, oral, Daily [MAY Hold] pravastatin, 20 mg, oral, QAM [MAY Hold] senna, 1 tablet, oral, BID [MAY Hold] sodium chloride 0.9%, 0.5-20 mL, intra-catheter, Q8H MERLENE Continuous Medications: bupivacaine preservative free in 0.9% sodium chloride 250 mL, , Last Rate: 10 mL/hr at 05/30/19 0825 PRN Medications: ??? [MAY Hold] acetaminophen ??? HYDROmorphone ??? [MAY Hold] naloxone ??? naloxone ??? [MAY Hold] ondansetron ??? ondansetron ??? [MAY Hold] oxyCODONE ??? [MAY Hold] sodium chloride 0.9% Total IV opioid patient [...] [facility]- Acute Pain Service Department of Anesthesiology [facility], [facility] 05/30/2019 12:17 PM * John [...] PRN, Amy Chun MD, 650 mg at 05/28/19 165 ??? [Held by Provider] acetaZOLAMIDE ER (DIAMOX [...] Daily-2099, Amy Chun MD, 40 mg at 05/28/192250 [...] MERLENE, Amy Chun MD, 10 mL at 05/29/192238 ??? sodium chloride 0.9% flush 0.5-20 mL, [...] injury. Diet: ADAT Pain control: Epidural, D/c'd BOATING SAFETY OFFICER. POPM IS Bowel reg DVT prophylaxis CT [...] PRN, Amy Chun MD, 650 mg at 05/28/19 165 ??? [Held by Provider] acetaZOLAMIDE ER (DIAMOX [...] Daily-2099, Amy Chun MD, 40 mg at 05/28/19 225 ??? gabapentin (NEURONTIN) capsule 300 mg, 300 mg, oral, Nightly, John Fernando MD, 300 mg at 05/28/192048 ??? guaiFENesin ER (MUCINEX) extended release tablet 600 mg, 600 mg, oral, BID, Estrellita Reyes,TJ, 600 mg at 05/28/192048 ??? Lactated Ringer's [...] mg, 8.8 mg, feeding tube, BID, Amy hCun MD ??? sodium chloride 0.9% flush 0.5-20 [...] injury. Diet: ADAT Pain control: Epidural, D/c'd BOATING SAFETY OFFICER. POPM D/c IVF IS Bowel reg DVT [...] control currently with epidural @10ml/hr and HM BOATING SAFETY OFFICER. Patient plans to get up andwalk this afternoon. Patient has received 9.8mg of HM through BOATING SAFETY OFFICER in last 24 hours. Objective: Temp: [36.4 ??C (97.6 ??F)-36.9 ??C (98.5 ??F)] 36.8 ??C (98.2 ??F) Pulse: [61-72] 72 Resp: [9-] 16 BP: (100-137)/(53-80) 126/65 MAP (mmHg): 78 [...] CALCIUM mg/dL 8.9 Recent Labs Lab Units 03/12/20 2314 PH ART 7.32* PCO2 ART mmHg [...] management - primary team planning on discontinuing BOATING SAFETY OFFICER and switching to oral medications today Epidural [...] Daily, Estrellita Reyes NP, 5 mg at 05/27/19 1531 ??? bupivacaine preservative free in 0.9% sodium chloride 250 mL 0.1 % (1,000 mcg/mL), , epidural, Continuous, Shelby Mcdonough NP, Last Rate: 10 mL/hr at 05/28/19 0300 ??? cyclobenzaprine (FLEXERIL) tablet 10 mg, 10 mg, oral, TID, Amy Chun MD, 10 mgat 05/27/191530 ??? enoxaparin (LOVENOX) syringe 40 mg, 40 mg, subcutaneous, Daily-2100, Aym Chun MD, 40 mg at 05/27/192037 ??? [...] MERLENE, Amy Chun MD, 10 mL at 05/27/190 ??? sodium chloride 0.9% flush 0.5-20 mL, [...] injury. Diet: ADAT Pain control: Epidural, D/c BOATING SAFETY OFFICER. POPM IVF: LR at 75 IS Bowel reg DVT prophylaxis CT to WS D/c'd beach, voiding D/c'd A-line, d/c'd OU status John Fernando Cosigned by Jasper Canchola MD at 05/29/2019 11:58 AM CDT * Shelby Tyson RN - 05/27/2019 1:59 PM CDT 05/27/19 8024 Information Information Obtained From Patient Prior to Admission Primary Caregiver Self Support System Spouse/Significant Other Support system contact info (name, phone, availablity) Pavan Kulkarni [phone] Durable Medical Equipment None Living Arrangements Spouse/significant other Type of Residence Private residence Steps in home? 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 Admit Source: home Problem/Goal: Patient awaits further evaluation for medical discharge needs and home needs. CM willassist patient with home needs as indicated and identified for safe discharge planning. Transportation: Cecilia Cuevas [phone] Through the course of our work I [...] Dietary Orders (From admission, onward) Start Ordered 05/27/19735 Adult Diet Regular Diet effective now Question: ([facility]) Diet type Answer: Regular 05/27/19735 Assessment /Plan Impression: Tolerating oral diet; no N/V, NAD [] Pain is well controlled [x] Pain is moderately controlled [] Pain is poorly controlled Plan: [x] Continue multi-modal pain medication regimen as ordered. [x] Encourage pulmonary toilet [x] Continue bowel regimen. Epidural Local Anesthetic Infusion: [x] Increase to 10 ml/hr IV BOATING SAFETY OFFICER demand amount: [x] No Change Thank You for involving us in the care of this patient; we will continue to follow. [x] Please call if further pain management questions arise. [] On Q-ball home teaching completed. Verbal and written instructions provided. [x] Plan of care done in collaboration with [x] Plan of care discussed with Primary Service. Clementina Walker [facility] Acute Pain Service Department of Anesthesiology [facility], [facility] 05/27/2019 12:55 PM * John Fernando MD [...] Daily-2099, Amy Chun MD, 40 mg at 05/26/192217 [...] Amy Chun MD, 1,000 mL at 05/26/19 2178 Objective Physical Exam: Constitutional: He is oriented [...] intermedius injury. Diet: ADAT Pain control: Epidural, BOATING SAFETY OFFICER. Increase epidural rate. IVF: LR at 75 [...] Chun MD, Last Rate: 400 mL/hr at 05/26/191812, 2,000 mg at 05/26/191812 ??? cyclobenzaprine (FLEXERIL) tablet 10 mg, 10 [...] injury. Diet: CLD, ADAT Pain control: Epidural, BOATING SAFETY OFFICER, Toradol IVF: LR at 75 IS Ancef [...] Ishan Pitts MD - 2019 1:16 PM PRESS CATCHER Images from the original note were not included. Center for Preoperative Assessment and Planning Preoperative Evaluation Record Evaluation type/location: [facility] Planned procedure site: [facility] (Pods 2/3/5/INSPECTOR METAL CAN) Date: 05/13/19 Anesthesia Evaluation Mp Kulkarni is [...] and grade I/ Negative for peripheral edema (Cochise LSB) Pulmonary Exam: LCTA, bilat EENT Exam: [...] and agree to proceed. All questions answered. S CATCHER S CATCHER S CATCHER documented in this encounter Procedure Notes * [...] removed in 7-10 days by any MD, PHARMACY CUSTOMER CARE SPECIALIST, assembler corncob pipes. Myrtle Haji MD documented in this encounter Nursing Notes * Imelda Ramesh, KAMILA - 05/30/2019 11:35 AM CDT Patient awaiting sign out from anesthesia. VSS as charted. He is awake, alert and oriented and denying pain. Will continue to monitor until transport back to room . 1235 Patient about to transport back to [facility], but was stopped as per pain [...] Resident - Observing Anesthesiologist: Sam Castro MD ROUNDING AND BACKING 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: Tirso Turner CRNA Post Secondary Professional: Matti Chau RN Scrub: Rik Fernandez RN Post Secondary Professional Second: Rickey Booker RN DATE OF SURGERY [...] Diagnostic flexible bronchoscopy. Surgeon Jasper Canchola MD Hospital Ward Clerk Amy Chun MD Anesthesia General. Clinical Note [...] no complications noted. Job ID/VF Job ID: [id number] * Plan of Care - Axel Aguirre [...] Ambulation; Transition to PO pain meds; Stop BOATING SAFETY OFFICER Problem: Health Behavior: Goal: Understanding of discharge [...] rest; c/o some pain with coughing. IS [id number]. Administered Acapella/PEP therapy; patient capable of self [...] during DCAM/rounds/progress notes today. DARIEN espinosa DC A-line Feel free to contact me at [phone] with further inquiries' * Assessment & Plan [...] injury. Diet: ADAT Pain control: Epidural, D/c'd BOATING SAFETY OFFICER. POPM IS Bowel reg DVT prophylaxis CT [...] Resident - Assisting Anesthesiologist: Taj Perkins MD Post Secondary Professional: Rickey Booker RN; Deniz Livingston RN; Ruy Mcdowell, KAMILA Scrub Relief: Ruy Mcdowell RN Scrub: ST [...] plus modifier 22. Surgeon Jasper Canchola MD Hospital Ward Clerk Amy Chun MD, MPHS Anesthesia General. Clinical [...] entire operative procedure. Job ID/VF Job ID: [id number] documented in this encounter Plan of Treatment Not on file documented as of this encounter Procedures Procedure Name Priority Date/Time Associated Diagnosis Comments BASIC METABOLIC PANEL Timed 05/30/2019 1:12 AM [...] Sodium 129(L) 135 - 145 mmol/L [facility] Potassium, pl 3.6 3.3 - 4.9 mmol/L [facility] Chloride 98 97 - 110 mmol/L [facility] CO2 23 22 - 32 mmol/L [facility] Anion gap 8 2 - 15 mmol/L [facility] BUN 10 8 - 25 mg/dL [facility] Creatinine 0.70(L) 0.80 - 1.30 mg/dL [facility] Glucose 118 70 - 199 mg/dL [facility] Comment: Interpretive Data Fasting glucose >/= 126 [...] Calcium 9.0 8.5 - 10.3 mg/dL [facility] Blood specimen (specimen) 05/30/2019 1:12 AM CDT 05/30/2019 1:25 AM CDT Jasper Canchola MD LAB BLOOD ORDERABLES Marianne conde Result [facility] [place] [address] * XR Chest 1 View (05/29/2019 10:19 [...] CDT) WBC 20.6(H) 3.8 - 9.9 K/cumm [facility] Hgb 10.2(L) 13.0 - 17.5 g/dL [facility] Hct 30.6(L) 38.9 - 50.3 % [facility] Plt 288 150 - 400 K/cumm [facility] MPV 12.1 9.1 - 12.3 fL [facility] RBC 3.61(L) 4.30 - 5.80 M/cumm [facility] MCV 84.8 81.3 - 96.4 fL [facility] MCH 28.3 27.1 - 33.3 pg [facility] MCHC 33.3 32.3 - 35.7 g/dL [facility] RDW CV 13.9 11.1 - 14.9 % [facility] RDW SD 43.4 35.7 - 48.1 fL [facility] NRBC abs 0.00 0.00 - 0.01 K/cumm [facility] Blood specimen (specimen) 05/28/2019 10:57 PM CDT 05/28/2019 11:22 PM CDT us Estrellita Reyes NP LAB BLOOD ORDERABLES Final Result Performing Organization Address [facility]/ZIP Co de Phone Number [facility] [place] [address] * (ABNORMAL) Basic metabolic panel (05/28/2019 10:57 PM CDT) Sodium 131(L) 135 - 145 mmol/L [facility] Potassium, pl 3.8 3.3 - 4.9 mmol/L [facility] Chloride 100 97 - 110 mmol/L [facility] CO2 23 22 - 32 mmol/L [facility] Anion gap 8 2 - 15 mmol/L [facility] BUN 16 8 - 25 mg/dL [facility] Creatinine 0.77(L) 0.80 - 1.30 mg/dL [facility] Glucose 125 70 - 199 mg/dL [facility] Comment: Interpretive Data Fasting glucose >/= 126 [...] Calcium 8.9 8.5 - 10.3 mg/dL [facility] Blood specimen (specimen) 05/28/2019 10:57 PM CDT 05/28/2019 11:23 PM CDT Estrellita Reyes NP LAB BLOOD ORDERABLES Final Result Performing Organization Address [facility]/ZIP Co de Phone Number [facility] [place] [address] * XR Chest 1 View (05/28/2019 5:27 [...] it. Electronically signed by: Kathy Johnson M.D. Estrellita Reyes PHARMACY CUSTOMER CARE SPECIALIST IMG XR PROCEDURES Final Re sult * (ABNORMAL) Basic metabolic panel (05/27/2019 9:53 PM CDT) Sodium 127(L) 135 - 145 mmol/L [facility] Comment:Repeated and Verifie d Potassium, pl 3.7 3.3 - 4.9 mmol/L [facility] Chloride 95(L) 97 - 110 mmol/L [facility] Comment:Repeated and Verifie d CO2 25 22 - 32 mmol/L [facility] Anion gap 7 2 - 15 mmol/L [facility] BUN 20 8 - 25 mg/dL [facility] Creatinine 1.35(H) 0.80 - 1.30 mg/dL [facility] Comment:Repeated and Verifie d Glucose 123 70 - 199 mg/dL [facility] Comment: Interpretive Data Fasting glucose >/= 126 [...] Calcium 8.9 8.5 - 10.3 mg/dL [facility] Blood specimen (specimen) 05/27/2019 9:53 PM CDT 05/27/2019 10:02 PM CDT us Myrtle Haji MD LAB BLOOD ORDERABLES Final Resul t [facility] [place] [address] * (ABNORMAL) CBC without differential (05/27/2019 9:53 PM CDT) WBC 26.1(H) 3.8 - 9.9 K/cumm [facility] Hgb 11.0(L) 13.0 - 17.5 g/dL [facility] Hct 34.4(L) 38.9 - 50.3 % [facility] Plt 301 150 - 400 K/cumm [facility] MPV 11.5 9.1 - 12.3 fL [facility] RBC 3.88(L) 4.30 - 5.80 M/cumm [facility] MCV 88.7 81.3 - 96.4 fL [facility] MCH 28.4 27.1 - 33.3 pg [facility] MCHC 32.0(L) 32.3 - 35.7 g/dL [facility] RDW CV 14.4 11.1 - 14.9 % [facility] RDW SD 46.1 35.7 - 48.1 fL [facility] NRBC abs 0.00 0.00 - 0.01 K/cumm [facility] Blood specimen (specimen) 05/27/2019 9:53 PM CDT 05/27/2019 10:02 PM CDT us Myrtle Haji MD LAB BLOOD ORDERABLES Final Resul t [facility] [place] [address] * (ABNORMAL) Basic metabolic panel (05/26/2019 11:15 PM CDT) Sodium 136 135 - 145 mmol/L [facility] Potassium, pl 4.0 3.3 - 4.9 mmol/L [facility] Chloride 106 97 - 110 mmol/L [facility] CO2 23 22 - 32 mmol/L [facility] Anion gap 7 2 - 15 mmol/L [facility] BUN 11 8 - 25 mg/dL [facility] Creatinine 0.66(L) 0.80 - 1.30 mg/dL [facility] Glucose 166 70 - 199 mg/dL [facility] Comment: Interpretive Data Fasting glucose >/= 126 [...] Calcium 9.0 8.5 - 10.3 mg/dL [facility] Blood specimen (specimen) 05/26/2019 11:15 PM CDT 05/26/2019 11:49 PM CDT Jasper Canchola MD LAB BLOOD ORDERABLES Marianne conde Result Performing Organization Address [facility] Co de Phone Number [facility] [place] [address] * (ABNORMAL) CBC without differential (05/26/2019 11:15 PM CDT) Pathologist [facility] WBC 24.3(H) 3.8 - 9.9 K/cumm [facility] Hgb 11.6(L) 13.0 - 17.5 g/dL [facility] Hct 35.9(L) 38.9 - 50.3 % [facility] Plt 291 150 - 400 K/cumm [facility] MPV 11.7 9.1 - 12.3 fL [facility] RBC 4.16(L) 4.30 - 5.80 M/cumm [facility] MCV 86.3 81.3 - 96.4 fL [facility] MCH 27.9 27.1 - 33.3 pg [facility] MCHC 32.3 32.3 - 35.7 g/dL [facility] RDW CV 13.8 11.1 - 14.9 % [facility] RDW SD 43.8 35.7 - 48.1 fL [facility] NRBC abs 0.00 0.00 - 0.01 K/cumm [facility] Blood specimen (specimen) 05/26/2019 11:15 PM CDT 05/26/2019 11:49 PM CDT Jasper Canchola MD LAB BLOOD ORDERABLES Marianne conde Result [facility] [place] [address] * (ABNORMAL) Blood gas, arterial (05/26/2019 11:14 PM CDT) Pathologist [facility] pH, Art 7.32(L) 7.35 - 7.45 [facility] PCO2, Arterial 41 35 - 45 mmHg [facility] PO2, Arterial 77(L) 83 - 108 mmHg [facility] HCO3 Art (Calculated) 22 20 - 30 mmol/L [facility] BE, art -5 mmol/L [facility] Comment: Interpretive Data No Reference Range Established Current Interpretive Data was last revised on 2017 O2 Sat Art (Measured) 95 90 - 95 % [facility] Blood specimen (specimen) 05/26/2019 11:14 PM CDT 05/26/2019 11:23 PM CDT Jasper Canchola MD LAB BLOOD ORDERABLES Marianne conde Result [facility] [place] [address] * (ABNORMAL) Basic metabolic panel (05/26/2019 7:49 PM CDT) Pathologist [facility] Sodium 139 135 - 145 mmol/L [facility] Potassium, pl 3.8 3.3 - 4.9 mmol/L [facility] Chloride 110 97 - 110 mmol/L [facility] CO2 21(L) 22 - 32 mmol/L [facility] Anion gap 8 2 - 15 mmol/L [facility] BUN 11 8 - 25 mg/dL [facility] Creatinine 0.68(L) 0.80 - 1.30 mg/dL [facility] Glucose 155 70 - 199 mg/dL [facility] Comment: Interpretive Data Fasting glucose >/= 126 [...] Calcium 9.1 8.5 - 10.3 mg/dL [facility] Blood specimen (specimen) 05/26/2019 7:49 PM CDT 05/26/2019 8:13 PM CDT Jasper Canchola MD LAB BLOOD ORDERABLES Marianne l Result Performing Organization Address [facility] Co de Phone Number [facility] [place] [place] [address] * (ABNORMAL) CBC without differential (05/26/2019 7:49 PM CDT) [facility] WBC 25.0(H) 3.8 - 9.9 K/cumm [facility] Hgb 12.0(L) 13.0 - 17.5 g/dL [facility] Hct 37.1(L) 38.9 - 50.3 % [facility] Plt 288 150 - 400 K/cumm [facility] MPV 11.6 9.1 - 12.3 fL [facility] RBC 4.24(L) 4.30 - 5.80 M/cumm [facility] MCV 87.5 81.3 - 96.4 fL [facility] MCH 28.3 27.1 - 33.3 pg [facility] MCHC 32.3 32.3 - 35.7 g/dL [facility] RDW CV 13.9 11.1 - 14.9 % [facility] RDW SD 45.0 35.7 - 48.1 fL [facility] NRBC abs 0.00 0.00 - 0.01 K/cumm [facility] Blood specimen (specimen) 05/26/2019 7:49 PM CDT 05/26/2019 8:13 PM CDT Jasper Canchola MD LAB BLOOD ORDERABLES Marianne l Result Performing Organization Address [facility]/ZIP Co de Phone Number [facility] [place] [address] * XR Chest 1 View - in [...] resection) 05/26/2019 12:30 PM CDT Narrative PATHOLOGY [facility] - 06/02/2019 11:23 PM CDT EPIC results best viewed via link to PDF [facility] [place] [address] SURGICAL PATHOLOGY REPORT FINAL WITH ADDENDUM Patient Name: ?? MP KULKARNI Gender: ??M : ??[id number] (Age: 54) Address: ??[address] [place] [address] ??[address] Hospital #: ??[id number] Taken:05/26/2019 Received:05/26/2019 Reported: 06/02/2019 Patient Type: [facility] Inpatient ?? Service: Cardiothoracic Location: [place] [id number] Physician(s): ??Jasper Canchola M.D. KALPANA Lema M.D. Myrtle Haji MD Diagnosis: A. ??Lymph node, station 8, [...] lung, with prior node biopsies showing metastases ([id number]). ??Operative procedure: Thoracotomy, right lower lobectomy, and [...] ??Sections of the larger piece show a mnedoza-white lobulated mass with a calcified focus measuring [...] determined by the Surgical Pathology Department at [facility] as part of an ongoing manager quality compliance program and in compliance with federally mandated [...] determined by the Surgical Pathology Department of [facility]. ??It has not been cleared or approved by the U. S. Food and Drug Administration. IMAGES AND SCANNED DOCUMENTS, IF INCLUDED, ONLY VIEWABLE IN PDF VERSION OF REPORT Jasper Canchola MD LAB PATHOLOGY ORDERABLES Final Result PATHOLOGY [facility] [address] [place], [place] [phone] documented in this encounter Visit Diagnoses Diagnosis Malignant neoplasm of lower lobe of right lung (HCC)- Primary Malignant neoplasm of lower lobe of right lung (HCC) Acute post-operative pain Acute post-thoracotomy pain Malignant neoplasm of lower lobe of right [...] 05/28/2019 5:50 PM CDT 1 patch Back oxyCODONE (ROXICODONE) tablet 10 mg 10 mg, [...] 8:41 AM CDT 1 tablet sodium chloride 0.9 % irrigation As needed, Starting on Thu05/26/19 at 1248, Intra-Op Given 05/26/2019 12:48 PM CDT 3,000 mL Surgical Site sodium chloride 0.9% flush 0.5-20 mL 0.5-20 mL, intra-catheter, Every 8 hours scheduled, First dose on Thu05/26/19 at 2200, Flush volume based on line type and size. Given 05/29/2019 10:39 PM CDT 10 mL Given 05/29/2019 5:03 PM CDT 10 mL Given 05/28/2019 10:51 PM CDT 10 mL sodium chloride 0.9% flush 0.5-20 mL 0.5-20 mL, intra-catheter, As needed, line care, Starting on Priscila 05/26/19 at 2127, Flush volume based on line type and size. Flush before and after each use. Given 05/28/2019 6:40 PM CDT 10 mL sterile water irrigation As needed, Starting on Priscila 05/26/19 at 1248, Intra-Op Given 05/26/2019 12:48 PM CDT 1,000 mL Other (Comment) documented in this encounter Discontinued Medications Medication [...] Anderson RN) 0841 (Given - Provider: Mp Matos RN) 0751 (Given - Provider: Matteo Hernandez, KAMILA)0930 (MAY [...] Mp Matos RN)1702 (Given - Provider: Mp Mtaos RN)2048 (Not Given - Provider: Axel Aguirre RN - Reason: Patient/family refused) 0749 (Given - Provider: Matteo Hernandez RN)0930 (MAR Hold - Provider: Automatic Transfer Provider - Reason: Patient not available)1257 ([facility] Unhold - Provider: Automatic Transfer Provider)1645 (Given [...] was toldto hold lovenox this PM.) 0930 ([facility] Hold - Provider: Automatic Transfer Provider - Reason: Patient not available)1257 (MAY Unhold - Provider: Automatic Transfer Provider) gabapentin (NEURONTIN) capsule 300 mg 300 mg, oral, Nightly, First dose (after last modification) on 05/28/19 at 2100 2049 (Given - Provider: Efraín Hutton RN) 2045 (Given - Provider: Axel Aguirre, KAMILA) 0930 (MAY Hold - Provider: Automatic Transfer [...] Mp Matos, KAMILA)2045 (Given - Provider: Axel Aguirre, KAMILA) 0748 (Given - Provider: Matteo Hernandez, KAMILA) [...] RN)0842 (Medication Applied - Provider: Mp Matos, KAMILA)2047 (Medication Removed - Provider: Axel Aguirre, KAMILA) 0903 (Not Given - Provider: Matteo Hernandez, [...] Anderson, RN) 0841 (Given - Provider: Mp Matos, [...] Mp Matos RN)2046 (Given - Provider: Axel Aguirre, KAMILA) 0748 (Given - Provider: Matteo Hernandez, [...] mg/mL) infusion (premix) (CANCELED) Continuous dose: None, BOATING SAFETY OFFICER dose: 0.2 mg, BOATING SAFETY OFFICER lockout: 10 Minutes, 1 hour limit: Other [...] (MAY Unhold - Provider: Automatic Transfer Provider) ondansetron [...] (MAY Unhold - Provider: Automatic Transfer Provider) oxyCODONE [...] RN)0748 (Given - Provider: Matteo Hernandez, KAMILA)0930 (MAY Hold - Provider: Automatic Transfer Provider - Reason: Patient not available)1257 (MAY Unhold - Provider: Automatic Transfer Provider)1310 (Given [...] (DILAUDID) injection 0.2 mg 2 05/30/2019 05/26/2019 lidocaine PF (XYLOCAINE) 10 mg/mL (1 %) [...] amLODIPine (NORVASC) tablet 5 mg 1 05/27/19 20 bupivacaine preservative francisca e in 0.9% sodium [...] syrup 8.8 mg 1 05/26/2019 sodium chloride 0.9% flush 0.5-20 mL 4 05/14 sodium chloride 0.9% solution 1,000 mL 1 Imaging Orders Without Results Count Last Order [...] 05/27/2019 documented in this encounter Care Teams Repair Coil Winder Relationship Specialty Start Date End Date Clara Stanley PA [address] [place] [id number] PCP - General Nurse Practitioner 04/05/19 Jasper Canchola MD [address] [place] [address] Surgeon Thoracic Surgery 05/11/19 Alexis Lopez MD [address] [address] Manager Ed Pulmonary Disease 05/11/19 Kip Del Rio MD [address] [facility] [address] [place] [address] Medical Oncologist/Ecological Modeler Hematology and Oncology 05/11/19 Jacob Flynn MD [address] [facility] [address] [place] [address] Radiation Oncologist Radiation Oncology 05/25/19 documented as of this encounter
--- OUTSIDE RECORDS SUMMARY | 2024-03-02 03:47 | XMS_ITS | Encounter Summary ---
Author Organization [facility] Address [address] [place] [address] Phone Care Team Providers Care Bale Coverer Name Role Phone Clara Stanley Primary Care Provider + Jasper Canchola MD Unavailable Alexis Lopez MD Unavailable [phone] Kip Del Rio MD Unavailable [phone] Jacob Flynn MD Unavailable Encounter Details Date Type Department Care Team (Latest Contact Info) Description 05/30/2019 Orders Only [facility] Scanning, Provider Social History Tobacco Use Types Packs/Day Years Used Date Smoking Tobacco: Never Smokeless Tobacco: Never Alcohol Use Standard Drinks/Week Comments Yes 0 (1 standard drink = 0.6 oz pur e alcohol) social Sex and Gender Information Value Date Recorded Sex Assigned at Not on file 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 Gender Identity Not on file Sexual Orientation [...] Date/Time Associated Diagnosis Comments SCAN - PATHOLOGY 05/30/2019 12:49 PM CDT documented in this encounter Results * SCAN - PATHOLOGY (05/30/2019 12:49 PM CDT) us Provider Scanning Final Result documented in this encounter Visit Diagnoses Not on filedocumented in this encounter Care Teams Bale Coverer Relationship Specialty Start Date End Date Clara Stanley PA [address] [place] [id number] PCP - General Nurse Practitioner 04/05/19 Jasper Canchola MD [address] [place] [id number] Surgeon Thoracic Surgery 05/11/19 Alexis Lopez MD [address] [address] Meat Cutting Teacher Pulmonary Disease 05/11/19 Kip Del Rio MD [address] [facility] [address] [place] [address] Medical Oncologist/Daytime Caregiver Hematology and Oncology 05/11/19 Jacob Flynn MD [address] [facility] [address] [place] [address] Radiation Oncologist Radiation Oncology 05/25/19 documented as of this encounter
--- OUTSIDE RECORDS SUMMARY | 2024-03-02 03:47 | XMS_ITS | Encounter Summary ---
Author Organization [facility] Address [address] [place] [address] Care Team Providers Care Dba Developer Name Role Phone Clara Stanley Primary Care Provider + Jasper Canchola MD Unavailable Alexis Lopez MD Unavailable Kip Del Rio MD Unavailable Jacob Flynn MD Unavailable Encounter Details Date Type Department Care Team (Late st Contact Info) Description 06/09/2019 Orders Only [facility] Surgeon [address] [place] [address] Jasper Canchola MD [address] [facility] [id number] [place], [place] [id number] Social History Tobacco Use Types Packs/Day Years Used Date Smoking Tobacco: Never Smokeless Tobacco: Never Alcohol Use Standard Drinks/Week Comments Yes 0 (1 standard drink = 0.6 oz pur e alcohol) social Sex and Gender Information Value Date Recorded Sex Assigned at Not on file 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 No / Unsure 05/26/2019 7:38 AM CDT documented as of this encounter Ordered Prescriptions Prescription Sig Dispense Quantity Refills Last Filled Start Date End Date gabapentin (NEURONTIN) 300 mg capsuleIndications :Postoperative Acute Pain Take 1 capsule (300 mg total) by mouth 3 (three) times a day as needed (pain) 90 capsule 1 06/09/2019 0 documented in this encounter Progress Notes * Marleny Overton NP - 06/09/2019 10:31 AM CDT Received phone call from Mr. Kulkarni regarding a request for refill on his gabapentin. He was prescribed gabapentin 300mg QHS, but with his continued pain control issues, he was instructed to increase the frequency of this medication. He reports improved pain control while using the gabapentin more frequently. I have prescribed a refill of 300mg TID PRN for pain for a total of 30 days with 1 refill available. While on the phone, he mentioned that his path report was released on My Chart. We reviewed the results, including the 4 positive lymph nodes and the T1N2 staging. I informed him that we would likelyrefer him back to Dr. Del Rio's office for determination of the need for chemotherapy, but that I would discuss this with Dr. Canchola and let him know the official decision. Marleny Overton [facility]- Nurse Practitioner for Dr. Emilee Canchola Thoracic Surgery [facility] Cosigned by Jasper Canchola MD at 06/09/2019 12:54 PM CDT documented in this encounter Plan of Treatment Not on file documented as of this encounter Visit Diagnoses Not on filedocumented in this encounter Care Teams Dba Developer Relationship Specialty Start Date End Date Clara Stanley PA [address] [place] [phone] PCP - General Nurse Practitioner 04/05/19 Jasper Canchola MD [address] [place] [address] Surgeon Thoracic Surgery 05/11/19 Alexis Lopez MD [address] [address] Bone Process Operator Pulmonary Disease 05/11/19 Kip Del Rio MD [address] [facility] [address] [place] [address] Medical Oncologist/Jute Bag Clipper Hematology and Oncology 05/11/19 Jacob Flynn MD [address] [facility] [address] [place], [place] [id number] Radiation Oncologist Radiation Oncology 05/25/19 documented as of this encounter
--- OUTSIDE RECORDS SUMMARY | 2024-03-02 03:47 | XMS_ITS | Encounter Summary ---
Author Organization [facility] Address [address] [place] [address] Care Team Providers Care Wash Driller Name Role Phone Clara Stanley Primary Care Provider + Jsaper Canchola MD Unavailable Alexis Lopez MD Unavailable Kip Del Rio MD Unavailable Jacob Flynn MD Unavailable Encounter Details Date Type Department Care Team (Late st Contact Info) Description 05/30/2019 10:07 AM CDT Anesthesia Event [facility] Operating Room [address] [place] [address] Sam Castro MD [address] [place] [address] Robert Payton MD [address] [place] [address] Anesthesia Record Procedure Summary Procedure Name Responsible Anesthesiologist Anesthesia Start Time Anesthesia Stop Time BRONCHOSCOPY FLEXIBLE (Bronchus) Sam Castro MD 05/30/19 1007 05/30/19 1039 Events Date Time Event Comment 05/30/2019 1007 An Start 1011 In Room 1012 An Start Data 1019 An Induction The patient was reevaluated immediately before moderate or deep sedation use and before anesthesia induction. 1020 An LMA 1020 Anesthesia Ready 1020 Proc Start 1026 Proc Fin 1031 Airway Removed 1033 an stop data 1035 Out of Room 1039 Handoff to RN I completed my handoff [...] disposition at the time of handoff: PACU 1039 An Stop Meds Name Total lidocaine 1 % PF 40 mg propofol 200 mg LR 100 mL * Agents Name O2 * Blood No blood administrations on file. Lines, Drains, and Airways Type Details Placement Removal RETIRED Surgical Site 05/19/19; 0633; Ne ck; 02/16/24 (Retired LDA, Removed/Completed by [facility] with LDA Utility); 1213 (Retired LDA, Removed/Completed by [facility] with LDA Utility) 05/19/19 0633 by Rickey Booker RN 02/16/24 1213 by Discharge Provider, Automatic RETIRED Surgical Site 05/26/19; 0916; Right; Chest; 02/16/24 (Retired LDA, Removed/Completed by [facility] with LDA Utility); 1213 (Retired LDA, Removed/Completed by [facility] with LDA Utility) 05/26/19 0916 by Rickey Booker RN 02/16/24 1213 by Discharge Provider, Automatic Epidural Placement Date: 05/26/19; Placement Time: 1009 (created via procedure documentation); 05/30/19; 1247 05/26/19 1009 by Taj Perkins MD 05/30/19 1247 by Imelda Ramesh RN Supraglottic Airway Placement Date: 05/30/19; Placement Time: 1027 (created via procedure documentation); Mask Ventilation: 0; Size: 5; Insertion Attempts: 1; Removal Date: 05/30/19; Removal Time: 1031 05/30/19 1027 by Tirso Turner CRNA 05/30/19 1031 by Tirso Turner CRNA documented in this encounter Social History Tobacco Use Types Packs/Day Years Used Date Smoking Tobacco: Never Smokeless Tobacco: Never Alcohol Use Standard Drinks/Week Comments Yes 0 (1 standard drink = 0.6 oz pur e alcohol) social Sex and Gender Information Value Date Recorded Sex Assigned at Not on file 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 No / Unsure 05/26/2019 7:38 AM CDT documented as of this encounter OR Notes * Anesthesia Postprocedure Evaluation - Trinity Dodson MD - 05/30/2019 12:00 PM CDT Patient: Kwaku Kulkarni Procedure Summary Date: 05/30/19 Room / Location: [facility] OR POD 3 ROOM [facility] / [facility] OR POD 3 Anesthesia Start: 1007 Anesthesia Stop: 1039 Procedure: BRONCHOSCOPY FLEXIBLE (N/A Bronchus) Diagnosis: Malignant neoplasm of lower lobe of right lung (CMS/HCC) (Malignant neoplasm of lower lobe of right lung (CMS/HCC) [C34.31]) Surgeon: Jasper Canchola MD Responsible Provider: Sam Castro MD Anesthesia Type: general ASA Status: 2 Anesthesia Type: general Last vitals BP 128/67 Pulse 90 Temp 36.4 ??C (97.5 ??F) (Temporal) Resp 13 SpO2 96% Anesthesia Post Evaluation Patient location during evaluation: PACU Patient participation: complete - patient participated Level of consciousness: arouses radiology receptionist and fully awake Pain score: 0 Pain management: satisfactory to patient Airway patency: patent Evidence of recall: no Anesthetic complications: no Cardiovascular status: hemodynamically stable Respiratory status: room air and spontaneous ventilation Hydration status: euvolemic Pt is: normothermic Nausea/Vomiting status: none Comments: Patient in good, stable condition as above. Appropriate for transfer back to floor. Cosigned by Yadira Sanchez MD at 05/30/2019 12:32 PM CDT * Anesthesia Procedure Notes - Tirso Turner CRNA - 05/30/2019 10:26 AM CDTAssociated Order(s): Airway Airway Patient location: OR Urgency: elective Indications for airway management: anesthesia Difficult airway: no Staff: Placed by: Anesthesiologist: Sam Castro MD Emergent airway documentation: Risks and benefits discussed: yes Consent obtained: yes Consent given by: patient Airway prep: Preoxygenated: yes Patient position: sniffing Mask difficulty assessment: 0 - not attempted Spontaneous ventilation during airway: absent Final airway details: Final airway type: supraglottic airway Final supraglottic airway: unique SGA size: 5 Airway seal pressure: 30 cm H2O Number of attempts: 1 * Anesthesia Preprocedure Evaluation - Sam Castro MD - 05/30/2019 8:04 AM CDT Images from the original note were not included. Center for Preoperative Assessment and Planning Preoperative Evaluation Record Evaluation type/location: IPAP at [facility] Planned procedure site: [facility] (Pods 2/3/5/HOSPITAL ADMISSIONS CLERK) Date: 05/30/19 Anesthesia Evaluation Kwaku Kulkarni is a 54 y.o. male Procedure(s): BRONCHOSCOPY FLEXIBLE Pre-Op Diagnosis Codes: * Malignant neoplasm of lower lobe of right lung (CMS/HCC) [C34.31] HISTORY HPI Kwaku Kulkarni is a 54 y.o. male with malignant neoplasm of right lung who is being evaluated prior to undergoing Procedure: BRONCHOSCOPY FLEXIBLE (N/A Bronchus) Anesthesia type: General Past Medical History Information obtained from: patient and chart. Neurological Pertinent negatives: seizures; neuromuscular disease; CVA/stroke; TIA; CEA; ICA stenosis; dementia/mild cognitive impairment and carotid artery stent Cardiovascular + Hyperlipidemia Pertinent negatives: hypertension ; CAD ; NM ; CABG ; valvular heart disease; valve replacement; atrial fibrillation; arrhythmia; pacemaker/ICD; PVD; DVT/PE; negative for CHF; drug-eluting stent(s); bare metal stent(s) and coronary angioplasty Comments: History of incomplete RBBB on 12-lead EKG Respiratory Pertinent negatives: COPD; asthma; sleep apnea (LEONOR); pulmonary hypertension; no O2 use outside thehospital and non-smoker Hepatic / Heme Pertinent negatives: liver disease; history of anemia; history of thrombocytopenia and history of Bradley positive Gastrointestinal Pertinent negatives: GERD and hiatal hernia Renal / + Renal disease (Resolving ARF with current admisssion. Last serum creatinine=]0.70 on 05/30/2019.) - ARF Pertinent negatives: dialysis and nephrolithiasis Musculoskeletal/Pain + Headaches (03/2019 IIH (idiopathic intracranial hypertension). Has follow-up with Cardiology: Alejandrina ([place], [place])) Pertinent negatives: chronic pain; chronic opioid use and previous treatment for opioid use disorder Endocrine / Other + Diabetes mellitus Outpatient insulin use: current. + Obesity (BMI >30)- morbid obesity (BMI>40). + Cancer history- current cancer. Cancer type: Right lung carcinoid tumor. Pertinent negatives: thyroid disease; rheumatological disease and transplanted organ Comments: History of Hyponatremia--last serum sodium was 129 on 05/29/2019. Takes Acetazolamide ER (Diamox). Functional Capacity Functional capacity: 4-6 METs Comments: Able to walk 1/2 mile and climb 1-2 flights of stairs prior to current hospitalization. Tolerates HOB flat. Review of Systems Pertinent negatives: productive cough; wheezing; SOB; recent cold/flu; fever; chest pain; palpitations; orthopnea; pedal edema; PND; Sickle Cell disease/trait; previous transfusion; transfusion reaction; melena/hematochezia; easy bruising; bleeding problems; syncope; dizziness; muscle weakness; chronic pain; numbness/tingling; hard of hearing; vision loss; heartburn; nausea; dysphagia; diarrhea; dentures/partials; chipped/loose teeth; abdominal pain; diaphoresis and no unexpected weight change PAT Summary and Plans Cardiac risk classification of planned procedure: low cardiac risk. Preoperative assessment status: complete. Initial preoperative evaluation discussed with: Rita Maxwell MD Additional comments: Kwaku Kulkarni is a 54 y.o. male who is being evaluated prior to undergoing a low cardiac risk surgery. Revised Cardiac Risk Index factors are (none) for a total RCRI of 0 out of 6. Functional capacity is 4-6 METs. Case dicussed with IPAP Attending: Re: Pt with Hyponatremia (last serum Crctqc=718 on 05/30/2019 (was 127 3 days ago). Pt on Diamox. No additional work-up required. Pt has an epidural catheter in place. Obstructive sleep apnea (LEONOR) screening status is STOP-Bang=4 suggesting moderate risk for LEONOR. The patient is at elevated risk for [...] after surgery about getting tested for LEONOR. Blood bank needs for day of procedure: No type and screen needed Pending labs/tests include: CXR results from 05/29/2019 pending (See Epic Chart Review: Lab Section). Pt has been NPO since midnight 05/30/2019 PAT Process Complete Preoperative evaluation performed by Cristina Vee NP on 05/30/19 at 8:21 AM. . Patient Active Problem List Diagnosis ??? Right lower lobe pulmonary nodule ??? High grade neuroendocrine carcinoma (CMS/HCC) ??? Lung nodule ??? Primary cancer of right lower lobe of lung (CMS/HCC) ??? Carcinoid tumor of right lung ??? Malignant neoplasm of lower lobe of right lung (CMS/HCC) ??? LEIDA (acute kidney injury) (CMS/HCC) Past Medical History: Diagnosis Date ??? LEIDA (acute kidney injury) (CMS/HCC) ??? Carcinoid tumor of lung right lung ??? Chronic headaches 03/2019 IIH (idiopathic intracranial hypertension) ??? Hyponatremia ??? IIH (idiopathic intracranial hypertension) Past Surgical History: Procedure Laterality Date ??? APPENDECTOMY ??? COLONOSCOPY ??? COLONOSCOPY ??? LUMBAR PUNCTURE 04/03/2019 ??? MEDIASTINOSCOPY 05/19/2019 Cervical Mediastinoscopy ??? THORACOTOMY 05/26/2019 THORACOTOMY LOBECTOMY / lymph node disection (Right) ??? TONSILLECTOMY ??? TONSILLECTOMY No Known Allergies Taking? Last Dose Start Date End Date Provider acetaZOLAMIDE ER (DIAMOX SEQUAL) 500 mg capsule 05/25/2019 -- -- Historical Provider, amLODIPine (NORVASC) 10 mg tablet 05/26/2019 04/10/19 -- Historical Provider, cetirizine (ZyrTEC) 10 mg tablet 05/25/2019 -- -- Historical Provider, cyclobenzaprine (FLEXERIL) 10 mg tablet Unknown 05/12/18 -- Historical Provider, HYDROcodone-acetaminophen 2.5-325 mg tablet 05/25/2019 05/19/19 -- Ama Carpenter MD Take 1 tablet by mouth every 4 (four) hours LORazepam (ATIVAN) 0.5 mg tablet 05/25/2019 -- -- Historical Provider, pravastatin (PRAVACHOL) 20 mg tablet 05/25/2019 04/10/19 -- Historical Provider, Current Facility-Administered Medications: ??? acetaminophen (TYLENOL) tablet [...] mg, subcutaneous, Daily-2100, 40 mg at 05/28/19 2251 ??? gabapentin (NEURONTIN) capsule 300 mg, 300 [...] oral, Q3H PRN, 10 mg at 05/30/19 0748 ??? polyethylene glycol (MIRALAX) packet 17 g, [...] intra-catheter, PRN, 10 mL at 05/28/19 1840 Social History Tobacco Use Smoking Status Never Smoker Smokeless Tobacco Never Used Substance and Sexual Activity Alcohol Use Yes Comment: social Substance and Sexual Activity Drug Use Never Family History Problem Relation Age of Onset ??? Cancer Mother ??? Heart disease Father ??? Cancer Father ??? Cancer Sister ??? Anesthesia problems Neg Hx PAT Physical Exam Airway Exam: Mallampati: II Cervical ROM: FROM TM distance: 3 Cardiovascular Exam: Rhythm: regular Pulmonary Exam: LCTA, bilat EENT Exam: trachea midline Dental Exam: Appears intact Skin Exam: Skin is warm and dry. Turgor is normal. Abdominal exam: Abdomen is soft. Bowel sounds are present. Line/Drains/Tubes/Devices: Lines and tubes in place: Left lower arm #18 ga peripheral IV access. Additional comments: Anterior lower neck incision open to air-edges well approximated. Right upper chest wound with scab formation. No errythema or drainage. (+) epidural catheter. Transparent dressing intact. Vitals: 05/30/19 0050 05/30/19 0335 05/30/19 0730 BP: 141/79 151/73 Comment: after moving to bed 135/64 Pulse: 100 91 95 Resp: Temp: 36.9 ??C (98.5 ??F) 36.9 ??C (98.4 ??F) 37.4 ??C (99.3 ??F) SpO2: 100% 98% 94% Relevant diagnostics: ECG(s): 03/30/2019 EKG ([facility]): NORMAL SINUS RHYTHM ABNORMAL ECG WHEN COMPARED WITH ECG OF 17-JAN-2015 09:35, NO SIGNIFICANT CHANGE WAS FOUND Echocardiogram(s): N/A Stress test(s): N/A Cardiac catheterization(s): N/A PFT(s): N/A Vascular studies: N/A Other: 05/27/2019 CXR: IMPRESSION: Comparison is made to chest radiograph dated 05/26/2019. ?? Right-sided thoracostomy tube is in place. There are small lung volumes with bibasilar atelectasis slightly increased in the right lung base minimally improved in the left lung base. No effusion. Stable heart 04/15/2019 CT Chest WO Contrast ([facility]): 1. ??Indeterminate 1.3 cm lung nodule, right lower lobe, unchanged. RECOMMENDATION: Nodule >8 mm: LOW AND HIGH RISK PATIENT - ??Low dose CT chest without contrast at 3, 12, and 24 months; PET-CT; or tissue sampling. 2. ??Gynecomastia. 3. ??Sub-6 mm lung nodules, right middle lobe, unchanged. PT: 05/05/2019: 13.1 SECONDS INR: 05/05/2019: 0.96 APTT: 05/05/2019: 32 SECONDS Hgb A1C: No results found for requested labs within last 720 hours. CBC RBC: 05/28/2019: 3.61 M/cumm* RDW: 05/05/2019: 14.2 % MCHC: 05/28/2019: 33.3 g/dL MCH: 05/28/2019: 28.3 pg MCV: 05/28/2019: 84.8 fL Hct: 05/28/2019: 30.6 %* Hgb: 05/28/2019: 10.2 g/dL* WBC: 05/28/2019: 20.6 K/cumm* MPV: 05/28/2019: 12.1 fL Platelets: 05/28/2019: 288 K/cumm RDW CV: 05/28/2019: 13.9 % RDW Sd: 05/28/2019: 43.4 fL BMP Glucose: 05/30/2019: 118 mg/dL Calcium: 05/30/2019: 9.0 mg/dL Sodium: 05/30/2019: 129 mmol/L* Potassium: 05/30/2019: 3.6 mmol/L CO2: 05/30/2019: 23 mmol/L Chloride: 05/30/2019: 98 mmol/L BUN: 05/30/2019: 10 mg/dL Creatinine: 05/30/2019: 0.70 mg/dL* STOP-Bang Total Score: 4 DOS Physical Exam Medical history, medications, and allergies reviewed. Attestation: I endorse the findings of the anesthesia pre-evaluation assessment dated: 05/30/2019. Airway Exam: Mallampati: II Cervical ROM: FROM TM distance: >4 Cardiovascular Exam: Rate: regular Rhythm: regular Pulmonary Exam: LCTA, bilat Dental Exam: Appears intact Current state: Patient's current state is cooperative and interactive. Additional comments: (+) epidural catheter--transparent dressing intact Anterior lower neck incision open to air with scab formation. No erythema or drainage Anesthesia Plan ASA 2 My patient is approved for the Anesthesia Controlled Medication protocol when under care of a COMMERCIAL LOAN SPECIALIST Planned anesthesia: General Team communication plan: LMA Induction: Induction: intravenous. Informed Consent: Discussed plan with COMMERCIAL LOAN SPECIALIST. Anesthesia plan and risks discussed with patient. [...] Procedure Name Priority Date/Time Associated Diagnosis Comments [place] AN PROCEDURE PLACEHOLDER Routine 05/30/2019 10:26 AM CDT [place] AN ELECTIVE SUPRAGLOTTIC AIRWAY Routine 05/30/2019 10:26 AM CDT documented in this encounter Results * W[place] AN ELECTIVE SUPRAGLOTTIC AIRWAY, [place] AN PROCEDURE PLACEHOLDER (05/30/2019 10:26 AM CDT) Narrative Tirso Turner CRNA - 05/30/2019 10:26 AM CDT Tirso Turner CRNA ? 05/30/2019 10:27 AM Airway Patient location: OR Urgency: elective Indications for airway management: anesthesia Difficult airway: no Staff: Placed by: Anesthesiologist: Sam Castro MD Emergent airway documentation: Risks and benefits discussed: yes Consent obtained: yes Consent given by: patient Airway prep: Preoxygenated: yes Patient position: sniffing Mask difficulty assessment: 0 - not attempted Spontaneous ventilation during airway: absent Final airway details: Final airway type: supraglottic airway Final supraglottic airway: unique SGA size: 5 Airway seal pressure: 30 cm H2O Number of attempts: 1 Sam Castro MD ANESTHESIA ORDERABLES F inal Result documented in this encounter Visit Diagnoses Not on filedocumented in this encounter Administered Medications Inactive Administered Medications - up to 3 most recent administrations Medication Order MAR Action Action Date Dose Rate Site Lactated Ringer's (LR) infusion Continuous PRN, Starting on 05/30/19 at 1012, Anesthesia Intra-op New Bag 05/30/2019 10:12 AM CDT lidocaine PF (XYLOCAINE) 10 mg/mL (1 %) preservative free injection As needed, Starting on Thu05/30/19 at 1019, Anesthesia Intra-op Given 05/30/2019 10:19 AM CDT 40 mg propofoL (DIPRIVAN) IV intravenous, As needed, Starting on Thu05/30/19 at 1019, Anesthesia Intra-op Given 05/30/2019 10:19 AM CDT 200 mg documented in this encounter Care Teams Wash Driller Relationship Specialty Start Date End Date Clara Stanley PA [address] [place] [id number] PCP - General Nurse Practitioner 04/05/19 Jasper Canchola MD [address] [place] [id number] Surgeon Thoracic Surgery 05/11/19 Alexis Lopez MD [address] [facility] [address] [address] Utilization Coordinator Pulmonary Disease 05/11/19 Kip Del Rio MD [address] [facility] [address] [place] [address] Medical Oncologist/Lawn Specialist Hematology and Oncology 05/11/19 Jacob Flynn MD [address] [facility] [address] [facility] [address] [place] [address] Radiation Oncologist Radiation Oncology 05/25/19 documented as of this encounter
--- OUTSIDE RECORDS SUMMARY | 2024-03-02 03:47 | XMS_ITS | Encounter Summary ---
Author Organization [facility] Address [address] [place] [address] Phone Care Team Providers Care Tube Buffer Name Role Phone Clara Stanley Primary Care Provider + Jasper Canchola MD Unavailable Alexis Lopez MD Unavailable Kip Del Rio MD Unavailable [phone] Jacob Flynn MD Unavailable Encounter Details Date Type Department Care Team (Late st Contact Info) Description 06/15/2019 9:00 AM CDT Telemedicine [facility] Surgery [address] [facility] Advanced Medicine 8th [place] [address] [place] [address] Stephanie Bautista, FASHION ILLUSTRATOR [address] [facility] [place] [id number] [place] [address] Cough (Primary Dx) Social History Tobacco Use Types Packs/Day Years Used Date Smoking Tobacco: Never Smokeless Tobacco: Never Alcohol Use Standard Drinks/Week Comments Yes 0 (1 standard drink = 0.6 oz pur e alcohol) social Sex and Gender Information Value Date Recorded Sex Assigned at Not on file 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 Kwaku Kulkarni. 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 At thispoint in time, he seems to be doing reasonably well. His appetite is good. He reports normal bowel movements and urination. He reports a persistent cough during the daytime hours. During our 20 minutes conversation, he coughed only a few times. He says the coughing is causing his stomach muscles promise sore. He is having some expected thoracotomy discomfort. His cough is productive of clear mucus.We talked about the phenomenon of post lobectomy cough. He denies any other associated symptoms. Hehas had no recent fevers, chills, night sweats, hemoptysis, chest pain, or shortness of breath. We will trial him on some Tessalon Perles. With regard to his postthoracotomy discomfort, we will refill his tramadol prescription. He continues to take Neurontin as prescribed at his discharge. PHYSICAL EXAMINATION: Physical exam: No physical examination was performed as this was a telemedicine visit. Review of Systems: Review of Systems Constitutional: Positive for malaise/fatigue and weight loss. HENT: Negative. Eyes: Negative. Respiratory: Positive for cough and sputum production. Cardiovascular: Negative. Gastrointestinal: Negative. Genitourinary: Negative. Musculoskeletal: Negative. Incisional pain related to his recent thoracotomy. Pain scale 4/10. Pain described as dull and aching in nature. Reports pain within his abdominal muscles which is related to coughing. Skin: Negative. Neurological: Negative. Endo/Heme/Allergies: Negative. Psychiatric/Behavioral: Negative. There were no vitals taken for this visit. PATHOLOGY: Diagnosis: A. Lymph node, station 8, excision - [...] evidence of malignancy in one lymph node (0/) H. 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 male who presents to clinic today status-post the above surgery. The patient is doing well in his postoperative course. He had a chest radiograph performed at [facility] yesterday. I reviewed those images. He has improved aeration over both lungs. There continues to be some fluid on the right lung which would coincide with his recent surgical resection. There is no pneumothorax. I will make sure Dr. Canchola has the opportunity to review the images later today. We will plan to see the patient back in 3-4 months with a contrast CT scan of the chest. I will keep everyone apprised of those findings as well as his future follow-up and plan of care. Certainly, if you have any questions or concerns, you may contact my office. Otherwise, thank you for allowing me the opportunity of participating in the care of your patient. Patient is otherwise encouraged to call the clinic with any questions, concerns in the meantime. The patient demonstrates understanding, and is amenable to the above outlined plan, there are no barriers to education today. Best personal regards, Stephanie Bautista NP This was a telemedicine visit with Mr. Nelson Kulkarni which took place via Telephone. During thevisit, I was located [facility] and the patient was located [address] [place] [id number] . The session started at 9:01 am and ended at 9:18 am. The patient has been informed that the visit may not be secure and acknowledged the information. I have explained the option of participating in a telephone or video visit during the COVID-19 public health emergency to the patient. After being given an opportunity to ask questions about and discuss this type of visit, the patient verbally consented to proceeding with the telephone / video visit. The patient understands that this service replaces an office visit and they may be billed and/or responsible for any applicable copayments. documented in this encounter Plan of Treatment Not on file documented as of this encounter Visit Diagnoses Diagnosis Cough- Primary documented in this encounter Care Teams Tube Buffer Relationship Specialty Start Date End Date Clara Stanley PA [address] [place] [address] PCP - General Nurse Practitioner 04/05/19 Jasper Canchola MD [address] [place] [address] [phone] Surgeon Thoracic Surgery 05/11/19 Alexis Lopez MD [address] [address] Grease Monkey Pulmonary Disease 05/11/19 Kip Del Rio MD [address] [facility] [address] [place] [address] Medical Oncologist/Screen Printing Paster Hematology and Oncology 05/11/19 Jacob Flynn MD [address] [facility] [address] [place] [address] Radiation Oncologist Radiation Oncology 05/25/19 documented as of this encounter
--- OUTSIDE RECORDS SUMMARY | 2024-03-02 03:47 | XMS_ITS | Encounter Summary ---
Author Organization [facility] Address [address] [place] [address] Phone Care Team Providers Care Electric Meter Technician Name Role Phone Clara Stanley Primary Care Provider + Jasper Canchola MD Unavailable Alexis Lopez MD Unavailable [phone] Kip Del Rio MD Unavailable Jacob Flynn MD Unavailable Encounter Details Date Type Department Care Team (Late st Contact Info) Description 06/06/2019 Telephone [facility] [address] [place] [address] Keke Pratt, ELECTRIC UTILITY LINEWORKER 7400 NURSE PRACTITIONER [address] [facility] [place] [address] Social History Tobacco Use Types Packs/Day Years Used Date Smoking Tobacco: Never Smokeless Tobacco: Never Alcohol Use Standard Drinks/Week Comments Yes 0 (1 standard drink = 0.6 oz pur e alcohol) social Sex and Gender Information Value Date Recorded Sex Assigned at Not on file 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 No / Unsure 05/26/2019 7:38 AM CDT documented as of this encounter Miscellaneous Notes * Telephone Encounter - Keke Pratt NP - 06/06/2019 10:21 AM CDT Spoke with Christina, patient's , regarding the patient's post-op incisional pain. He states he has some good days and some bad days . He says he had a good day Thursday, but Thursday he had one of the worst days of recovery. He states his incision was burning and hurt to touch. He is taking Oxycodone as prescribed, but only has a days worth left. He is also taking OTC Tylenol. He was sent home with nightly gabapentin, and he was instructed to take this TID for the next 2 days. If this is helpful, then he is to call back and a prescription will be called in. Tramadol PO 50mg Q6hr PRN (#30) will also be called into his pharmacy ([phone]). All of his questions were addressed and he was satisfied with the above plan. documented in this encounter Plan of Treatment Not on file documented as of this encounter Visit Diagnoses Not on filedocumented in this encounter Care Teams Electric Meter Technician Relationship Specialty Start Date End Date Clara Stanley PA [address] [place] [address] PCP - General Nurse Practitioner 04/05/19 Jasper Canchola MD [address] [place] [address] Surgeon Thoracic Surgery 05/11/19 Alexis Lopez MD [address] [facility] [address] [address] Wedding Designer Pulmonary Disease 05/11/19 Kip Del Rio MD [address] [facility] [address] [place], [place] [id number] Medical Oncologist/Sourcing Assistant Hematology and Oncology 05/11/19 Jacob Flynn MD [address] [facility] [address] LL [address] [place], [place] [id number] Radiation Oncologist Radiation Oncology 05/25/19 documented as of this encounter
--- OUTSIDE RECORDS SUMMARY | 2024-03-02 03:47 | XMS_ITS | Encounter Summary ---
Author Organization [facility] Address [address] [place] [address] Phone Care Team Providers Care Poultry Hanger Name Role Phone Clara Stanley Primary Care Provider + Jasper Canchola MD Unavailable Alexis Lopez MD Unavailable [phone] Kip Del Rio MD Unavailable Jacob Flynn MD Unavailable Encounter Details Date Type Department Care Team (Late st Contact Info) Description 06/13/2019 Orders Only [facility] Surgery [address] [facility] Advanced Medicine 8th [place] [address] [place] [address] Judy Frias RMA Lung nodule (Primary Dx) Social History Tobacco Use Types Packs/Day Years Used Date Smoking Tobacco: Never Smokeless Tobacco: Never Alcohol Use Standard Drinks/Week Comments Yes 0 (1 standard drink = 0.6 oz pur e alcohol) social Sex and Gender Information Value Date Recorded Sex Assigned at Not on file 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 Gender Identity Not on file Sexual [...] classified documented in this encounter Care Teams Poultry Hanger Relationship Specialty Start Date End Date Clara Stanley PA [address] [place] [address] PCP - General Nurse Practitioner 04/05/19 Jasper Canchola MD [address] [place] [address] Surgeon Thoracic Surgery 05/11/19 Alexis Lopez MD [address] [address] Finish Opener Pulmonary Disease 05/11/19 Kip Del Rio MD [address] [facility] [address] [place] [address] Medical Oncologist/Customer Resolution Specialist Hematology and Oncology 05/11/19 Jacob Flynn MD [address] [facility] [address] [place] [address] Radiation Oncologist Radiation Oncology 05/25/19 documented as of this encounter
--- OUTSIDE RECORDS SUMMARY | 2024-03-02 03:47 | XMS_ITS | Encounter Summary ---
Author Organization [facility] Address [address] [place] [address] Phone Care Team Providers Care Sexual Assault Counsellor Name Role Phone Clara Stanley Primary Care Provider + Jasper Canchola MD Unavailable Alexis Lopez MD Unavailable [phone] Kip Del Rio MD Unavailable Jacob Flynn MD Unavailable Encounter Details Date Type Department Care Team (Late st Contact Info) Description 06/10/2019 Telephone [facility] Oncology [address] [facility] 7th [place] [address] [place] [address] Imelda De Leon, KAMILA Social History Tobacco Use Types Packs/Day Years Used Date Smoking Tobacco: Never Smokeless Tobacco: Never Alcohol Use Standard Drinks/Week Comments Yes 0 (1 standard drink = 0.6 oz pur e alcohol) social Sex and Gender Information Value Date Recorded Sex Assigned at Not on file 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 No / Unsure 05/26/2019 7:38 AM CDT documented as of this encounter Miscellaneous Notes * Telephone Encounter - Imelda Simpson RN - 06/10/2019 4:[address] Del Rio spoke with Mr. Kulkarni and his Faith today and discussed the pathology results from the recent right thoracotomy, right lower lobectomy, mediastinal lymph node dissection, and right main bronchoplasty on 05/26/[address] Canchola. There were 4 lymph nodes that tested positive for malignancy making him a T1N2 staging. Dr. Del Rio is not recommending adjuvant chemotherapy at this time. He recommends repeat imaging to re-evaluate in 2-[address] Canchola will manage his care at this time. We offered our ongoing support and asked that he calls our office with any questions or concerns. documented in this encounter Plan of Treatment Not on file documented as of this encounter Visit Diagnoses Not on filedocumented in this encounter Care Teams Sexual Assault Counsellor Relationship Specialty Start Date End Date Clara Stanley PA [address] [place] [address] PCP - General Nurse Practitioner 04/05/19 Jasper Canchola MD [address] [place] [address] Surgeon Thoracic Surgery 05/11/19 Alexis Lopez MD [facility] [address] [address] Lastex Operator Pulmonary Disease 05/11/19 Kip Del Rio MD [address] [facility] [address] [place] [address] Medical Oncologist/Kaiawhina Kohanga Reo Hematology and Oncology 05/11/19 Jacob Flynn MD [address] [facility] [address] LL [address] [place] [address] Radiation Oncologist Radiation Oncology 05/25/19 documented as of this encounter
--- OUTSIDE RECORDS SUMMARY | 2024-03-02 03:47 | XMS_ITS | Encounter Summary ---
Author Organization [facility] Address [address] [place] [address] Phone Care Team Providers Care International Marketing Executive Name Role Phone Clara Stanley Primary Care Provider + Jasper Canchola MD Unavailable [phone] Alexis Lopez MD Unavailable [phone] Kip Del Rio MD Unavailable [phone] Jacob Flynn MD Unavailable Reason for Referral * Diagnostic Imaging (Routine) - Closed Specialty Diagnoses / Procedures Referred By Contrebekah t Referred To Contact Radiology Diagnoses Lung nodule Procedures CT Chest W Contrast Jasper Canchola MD Phone: tel: fax: [address] [address] Referral ID Status Reason Start Date Expiration Date Visits Re quested Visits Authorized [id number] Closed 09/13/2019 03/11/2020 1 1 Encounter Details Date Type Department Care Team (Late st Contact Info) Description 06/15/2019 Orders Only 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 Gender Identity Not on file Sexual Orientation [...] classified documented in this encounter Care Teams International Marketing Executive Relationship Specialty Start Date End Date Clara Stanley PA [address] [place] [address] PCP - General Nurse Practitioner 04/05/19 Jasper Canchola MD [address] [place] [address] Surgeon Thoracic Surgery 05/11/19 Alexis Lopez MD [address] [address] Employee Benefits Manager Pulmonary Disease 05/11/19 Kip Del Rio MD [address] [facility] [address] [place], [place] [phone] Medical Oncologist/Underwriter Solicitation Director Hematology and Oncology 05/11/19 Jacob Flynn MD [address] [facility] [address] [place] [address] Radiation Oncologist Radiation Oncology 05/25/19 documented as of this encounter
--- OUTSIDE RECORDS SUMMARY | 2024-03-02 03:47 | XMS_ITS | Encounter Summary ---
Author Organization [facility] Care Team Providers Care Motor Route Carrier Name Role Phone Clara Stanley Primary Care Provider + Jasper Canchola MD Unavailable Alexis Lopez MD Unavailable [phone] Kip Del Rio MD Unavailable Jacob Flynn MD Unavailable Encounter Details Date Type Department Care Team (Latest Contact Info) Description 06/10/2019 Travel Social History Tobacco Use Types Packs/Day Years Used Date Smoking Tobacco: Never Smokeless Tobacco: Never Alcohol Use Standard Drinks/Week Comments Yes 0 (1 standard drink = 0.6 oz pur e alcohol) social Sex and Gender Information Value Date Recorded Sex Assigned at Not on file 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 Gender Identity Not on file Sexual [...] on filedocumented in this encounter Care Teams Motor Route Carrier Relationship Specialty Start Date End Date Clara Stanley PA [address] [place] [address] PCP - General Nurse Practitioner 04/05/19 Jasper Canchola MD [address] [place] [phone] Surgeon Thoracic Surgery 05/11/19 Alexis Lopez MD [address] [address] Engraving Supervisor Pulmonary Disease 05/11/19 Kip Del Rio MD [address] [facility] [address] [place] [address] Medical Oncologist/Clip Coater Hematology and Oncology 05/11/19 Jacob Flynn MD [address] [facility] [address] [place] [address] Radiation Oncologist Radiation Oncology 05/25/19 documented as of this encounter
--- OUTSIDE RECORDS SUMMARY | 2024-03-02 03:47 | XMS_ITS | Encounter Summary ---
Author Organization [facility] Address [address] [facility] [address] [place] [address] Phone Care Team Providers Care Coil Cutter Name Role Phone Clara Stanley Primary Care Provider + Jasper Canchola MD Unavailable Alexis Lopez MD Unavailable [phone] Kip Del Rio MD Unavailable Jacob Flynn MD Unavailable Encounter Details Date Type Department Care Team (Late st Contact Info) Description 06/28/2019 Telephone [facility] Surgery [address] [facility] Advanced Medicine 8th [place] [address] [place] [address] Stephanie Bautista, TJ [address] [facility] 8233-07-15 [place] [address] Social History Tobacco Use Types Packs/Day Years Used Date Smoking Tobacco: Never Smokeless Tobacco: Never Alcohol Use Standard Drinks/Week Comments Yes 0 (1 standard drink = 0.6 oz pur e alcohol) social Sex and Gender Information Value Date Recorded Sex Assigned at Not on file 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 Stephanie, are you able to call them ? I know they are painful. I truly am sorry. It doesn't help thattheir son is a newly well educated pharmacist. Lol they are getting lots of advice from lots of folks and I get to hear all about it. ----- Message ----- From: Jasper Canchola MD Sent: 06/28/2019 3:52 PM CDT To: Stephanie Bautista NP, Afia Hutton, # I will wait until images are in [facility], but by text images, looks pretty good. He has a right middle lobe infiltrate. On prior images there was a right middle lobe atelectasis. So he might have a rightmiddle lobe pneumonitis. Levaquin for 7 days; not sure of the dose.he is a huge prabhjot. Thanks ----- Message ----- From: Judy Frias MA Sent: 06/28/2019 3:40 PM CDT To: Stephanie Bautista NP, Afia Hutton, # Yes, they are going to show in [facility], it takes a min sometimes ----- Message ----- From: Jasper Canchola MD Sent: 06/28/2019 3:38 PM CDT To: Stpehanie Bautista NP, Afia Hutton, # ?? To [facility] ----- Message ----- From: Judy Frias MA Sent: 06/28/2019 3:26 PM CDT To: Stephanie Bautista NP, Afia Hutton, # CXR uploaded into [employer] documented in this encounter Plan of Treatment Not on file documented as of this encounter Visit Diagnoses Not on filedocumented in this encounter Care Teams Coil Cutter Relationship Specialty Start Date End Date Clara Stanley PA [address] [place] [address] PCP - General Nurse Practitioner 04/05/19 Jasper Canchola MD [address] [place] [address] Surgeon Thoracic Surgery 05/11/19 Alexis Lopez MD [address] [address] Complaint Evaluation Supervisor Pulmonary Disease 05/11/19 Kip Del Rio MD [address] [facility] [address] [place] [address] Medical Oncologist/Logistics Team Leader Hematology and Oncology 05/11/19 Jacob Flynn MD [address] [facility] [address] [place] [address] Radiation Oncologist Radiation Oncology 05/25/19 documented as of this encounter
--- OUTSIDE RECORDS SUMMARY | 2024-03-02 03:47 | XMS_ITS | Encounter Summary ---
Author Organization [facility] Address [address] [place] [address] Phone Care Team Providers Care Circulation Representative Name Role Phone Clara Stanley Primary Care Provider + Jasper Canchola MD Unavailable Alexis Lopez MD Unavailable Kip Del Rio MD Unavailable Jacob Flynn MD Unavailable Encounter Details Date Type Department Care Team (Late st Contact Info) Description 06/29/2019 Orders Only [facility] Surgery [address] [facility] Advanced Medicine 8th [place] [address] [place] [address] Judy Frias RMA Lung nodule (Primary Dx) Social History Tobacco Use Types Packs/Day Years Used Date Smoking Tobacco: Never Smokeless Tobacco: Never Alcohol Use Standard Drinks/Week Comments Yes 0 (1 standard drink = 0.6 oz pur e alcohol) social Sex and Gender Information Value Date Recorded Sex Assigned at Not on file 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 Gender Identity Not on file Sexual Orientation Straight 09/22/2019 8: 21 PM CDT documented as of this encounter Plan of Treatment Not on file documented as of this encounter Visit Diagnoses Diagnosis Lung nodule- Primary Other diseases of lung, not elsewhere classified documented in this encounter Care Teams Circulation Representative Relationship Specialty Start Date End Date Clara Stanley PA [address] [place] [address] PCP - General Nurse Practitioner 04/05/19 Jasper Canchola MD [address] [place] [address] Surgeon Thoracic Surgery 05/11/19 Alexis Lopez MD [address] [address] Rotary Surface Grinder Pulmonary Disease 05/11/19 Kip Del Rio MD [address] [place] [address] Medical Oncologist/Product Safety Tester Hematology and Oncology 05/11/19 Jacob Flynn MD [address] [place] [address] Radiation Oncologist Radiation Oncology 05/25/19 documented as of this encounter
--- OUTSIDE RECORDS SUMMARY | 2024-03-02 03:47 | XMS_ITS | Encounter Summary ---
Author Organization [facility] Healthcare Address [address] [place] [address] Care Team Providers Care Middle School Baseball Coach Name Role Phone Clara Stanley Primary Care Provider + Jasper Canchola MD Unavailable Alexis Lopez MD Unavailable Kip Del Rio MD Unavailable Jacob Flynn MD Unavailable [phone] Encounter Details Date Type Department Care Team (Late st Contact Info) Description 08/07/2019 Orders Only [facility] HealthCare/ Physicians [address] [place] [address] Jasper Canchola MD [address] [facility] [address] [place] [address] Pre-procedure lab exam (Primary Dx) Social History Tobacco Use Types Packs/Day Years Used Date Smoking Tobacco: Never Smokeless Tobacco: Never Alcohol Use Standard Drinks/Week Comments Yes 2 (1 standard drink = 0.6 oz pur e alcohol) Sex and Gender Information Value Date Recorded Sex Assigned at Not on file Legal Sex Male 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 Order placed. Order and label printed for Location: [facility] documented in this encounter Plan of Treatment Not on file documented as of this encounter Visit Diagnoses Diagnosis Pre-procedure lab exam- Primary Pre-procedural laboratory examination documented in this encounter Care Teams Middle School Baseball Coach Relationship Specialty Start Date End Date Clara Stanley PA [address] [place] [address] PCP - General Nurse Practitioner 04/05/19 Jasper Canchola MD [address] [place] [address] Surgeon Thoracic Surgery 05/11/19 Alexis Lopez MD [address] [address] Bobbin Trucker Pulmonary Disease 05/11/19 Kip Del Rio MD [address] [facility] [address] [place] [address] Medical Oncologist/Lace Paper Machine Operator Hematology and Oncology 05/11/19 Jacob Flynn MD [address] [facility] [address] [place] [address] Radiation Oncologist Radiation Oncology 05/25/19 documented as of this encounter
--- OUTSIDE RECORDS SUMMARY | 2024-03-02 03:47 | XMS_ITS | Encounter Summary ---
Author Organization [facility] Address [address] [facility] [address] [place] [address] Care Team Providers Care Senior Media Director Name Role Phone Clara Stanley Primary Care Provider + Jasper Canchola MD Unavailable Alexis Lopez MD Unavailable [phone] Kip Del Rio MD Unavailable [phone] Jacob Flynn MD Unavailable Reason for Referral * Diagnostic Imaging (Routine) - Closed Specialty Diagnoses / Procedures Referred By Erik t Referred To Contact Diagnoses Cough Productive cough Pleural effusion Procedures XR Chest Pa Lateral 2 Views Alexis Lopez MD [address] [facility] [address] [place] [address] Phone: tel: fax: [address] [address] Referral ID Status Reason Start Date Expiration Date Visits Re quested Visits Authorized [id number] Closed 07/04/2019 01/12/2021 1 1 Encounter Details Date Type Department Care Team (Late st Contact Info) Description 07/04/2019 Telephone [facility] Pulmonology [address] [place] [address] [address] [place] [address] Yolanda Segal, KAMILA Social History Tobacco Use Types Packs/Day Years Used Date Smoking Tobacco: Never Smokeless Tobacco: Never Alcohol Use Standard Drinks/Week Comments Yes 0 (1 standard drink = 0.6 oz pur e alcohol) social Sex and Gender Information Value Date Recorded Sex Assigned at Not on file 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 VORB repeat CXR and order a sputum culture as well. Pts Faith was informed and stated they would go to [facility] tomorrow am. Orders have been placed. verbalized understanding. * Telephone Encounter - Alexis Lopez MD - 07/04/2019 2:10 PM CDT Thank you. * Telephone Encounter - Yolanda Segal RN - 07/04/2019 1:21 PM CDT Spoke with with below recommendation. informed that pt just had a CXR on 06/27. Reaching out to [facility] to request these results. * Telephone Encounter - Alexis Lopez MD - 07/04/2019 12:35 PM CDT I would recommend a chest x-ray PA and lateral at this time. * Telephone Encounter - Yolanda Segal RN - 07/04/2019 10:58 AM CDT Pts called stating pt has had a cough ever since he had surgery with Dr Canchola 05/26/19. On06/27 pt was prescribed Augmentin 875mg x 10 days. Cough is productive and describes episodes as violent. Pt is not having any issues sleeping,the cough only bothers him throughout the day. Estimated 7-8 episodes daily. Mucus was described asclear but thick and large amounts. Last Visit: 05/04/19 Follow Up: Not scheduled at this time Allergies: Nkda Faith, [phone] documented in this encounter Plan of Treatment Not on file documented as of this encounter Procedures Procedure Name Priority Date/Time Associated Diagnosis Comments MYCOBACTERIOLOGY AFB CULTURE AND ACID-FAST STAIN, CF Routine 07/05/2019 10:36 AM CDT Cough Productive cough documented in this encounter Results * Mycobacteriology (AFB) culture and acid-fast stain, CF Sputum (07/05/2019 10:36 AM CDT) AFB Source SPUTUM [facility] Acid Fast Stain SEE NOTE [facility]sun Comment: Negative for Acid Fast Bacteria. AFB Culture Prelim Res SEE NOTE [facility] Comment: Specimen received and in progress. Performed by [facility], [address] [place] [address],[place] [address] [facility], aCrlyle Stewart MD, Lab. Director AFB Culture Final Res SEE NOTE [facility] Comment: Culture negative for acid fast bacilli Performed by [facility], [address] [place] [address] [facility], Carlyle Stewart MD, Lab. Director Sputum 07/05/2019 10:3 6 AM CDT 07/05/2019 12:01 PM CDT Narrative [facility] - 08/31/2019 12:02 AM CDT Specify Source Sputum Sputum Resulting Agency Comment CLI us Alexis Lopez MD LAB MICROBIOLOGY - GENERA L ORDERABLES Edited Result - [place] [address], [facility] [phone] * XR Chest Pa Lateral 2 Views (07/05/2019 9:54 AM CDT) Anatomical Region Laterality Modality Body, Chest N/A Radiographic Trang ging 07/05/2019 10:0 5 AM CDT Narrative 07/05/2019 10:06 AM CDT Patient Name: MP BULLOCK ?Ordering Dr: Alexis Lopez MD ?? D.O.B: 1965 ? Exam Date: 07/05/19 ?? 0954 ?? Age: 54 ?Sex: Male ? MR#: [id number] ?? Loc: ? RADIOLOGY REPORT ?? Order #[id number] ?? Radiology ? Chest 2 Views ? [...] T: ??07/05/2019 10:06 AM ? Report ID: [id number] ?? Reading Location: ??[id number] ? REPORT ELECTRONICALLY SIGNED IN OTHER VENDOR SYSTEM ?? Resulting Agency Comment O Procedure Note Joaquim Botello MD - 07/05/2019 Patient Name: MP BULLOCK Pedro Dr: Alexis Lopez MD DKiyaO.B: 1965 Exam Date: 07/05/19 0954 Age: 54 Sex: Male MR#: [id number] Loc: RADIOLOGY REPORT Order #[id number] Radiology Chest 2 Views Signed EXAM DESCRIPTION: [...] - Electronically signed by Joaquim Botello M.D. JA: TATIANA Report ID: [id number] Reading Location: [id number] REPORT ELECTRONICALLY SIGNED IN OTHER VENDOR SYSTEM us Alexis Lopez MD IMG XR PROCEDURES Final R esult documented in this encounter Visit Diagnoses Diagnosis Cough- Primary Productive cough Cough Pleural effusion Unspecified pleural effusion Cough Productive cough Cough Pleural effusion Unspecified pleural effusion documented in this encounter Care Teams Senior Media Director Relationship Specialty Start Date End Date Clara Stanley PA [address] [place] [address] PCP - General Nurse Practitioner 04/05/19 Jasper Canchola MD [address] [place] [address] Surgeon Thoracic Surgery 05/11/19 [place] [address] [place] [address] Explosive Ordnance Disposal Specialist Pulmonary Disease 05/11/19 Kip Del Rio MD [address] [facility] [address] [place] [address] Medical Oncologist/Wallpaper Remover Steam Hematology and Oncology 05/11/19 Jacob Flynn MD [address] [facility] [address] [place] [address] Radiation Oncologist Radiation Oncology 05/25/19 documented as of this encounter
--- OUTSIDE RECORDS SUMMARY | 2024-03-02 03:47 | XMS_ITS | Encounter Summary ---
Author Organization [facility] Healthcare Address [address] [place] [address] Care Team Providers Care Control Panel Builder Name Role Phone Clara Stanley Primary Care Provider + Jasper Canchola MD Unavailable Alexis Lopez MD Unavailable Kip Del Rio MD Unavailable Jacob Flynn MD Unavailable Encounter Details Date Type Department Care Team (Late st Contact Info) Description 08/08/2019 Orders Only [facility] HealthCare/ Physicians [address] [place] [address] Jasper Canchola MD [address] [facility] [address]15 [place] [address] Pre-op testing (Primary Dx) Social History Tobacco Use Types Packs/Day Years Used Date Smoking Tobacco: Never Smokeless Tobacco: Never Alcohol Use Standard Drinks/Week Comments Yes 2 (1 standard drink = 0.6 oz pur e alcohol) Sex and Gender Information Value Date Recorded Sex Assigned at Not on file 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 Gender Identity Not on file Sexual Orientation Straight 09/22/2019 8: 21 PM CDT documented as of this encounter Progress Notes * Jessy Hernandez MA - 08/08/2019 8:29 AM CDT Pre-surgical Order placed and sent to [facility] documented in this encounter Miscellaneous Notes * Addendum Note - Torito Sancehz - 08/08/2019 8:29 AM CDTAddended by: TORITO SANCHEZ on: 08/09/2019 01:33 PM Modules accepted: Orders documented in this encounter Plan of Treatment Not on file documented as of this encounter Results * COVID-19 Coronavirus RNA Nasopharyngeal (08/09/2019 1:33 PM CDT) COVID-19 RNA Not Detected SEJAL ARNOLD Comment: Interpretive Data Testing performed at [facility] Molecular Infectious Disease Laboratory. The 2018-Novel Coronavirus Assay (COVID-19) Real Time RT-PCR assay [...] MICROBIOLOGY - GENERA L ORDERABLES Final Result SEJAL HEARN [facility] Department [place] [address] documented in this encounter Visit Diagnoses Diagnosis Pre-op testing- Primary Unspecified pre-operative examination Pre-op testing Unspecified pre-operative examination documented in this encounter Care Teams Control Panel Builder Relationship Specialty Start Date End Date Clara Stanley PA [address] [place] [address] PCP - General Nurse Practitioner 04/05/19 Jasper Canchola MD [facility] [place] [address] Surgeon Thoracic Surgery 05/11/19 Alexis Lopez MD [address] [facility] [address] [address] Tack Cutter Pulmonary Disease 05/11/19 Kip Del Rio MD [address] [facility] [address] [place] [address] Medical Oncologist/Child Protective Services Social Worker Hematology and Oncology 05/11/19 Jacob Flynn MD [address] [place] [address] Radiation Oncologist Radiation Oncology 05/25/19 documented as of this encounter
--- OUTSIDE RECORDS SUMMARY | 2024-03-02 03:48 | XMS_ITS | Encounter Summary ---
Author Organization [facility] Address [address] [place] [address] Care Team Providers Care Counter Hop Name Role Phone Clara Stanley Primary Care Provider + Jasper Canchola MD Unavailable Alexis Lopez MD Unavailable [phone] Kip Del Rio MD Unavailable [phone] Reason for Referral * Diagnostic Imaging (Routine) - Closed Specialty Diagnoses / Procedures Referred By Contac t Referred To Contact Radiology Diagnoses Primary cancer of right lower lobe of lung (HCC) Procedures MRI Brain W WO Contrast Kip Del Rio MD [address] [address] Phone: tel: fax: [facility] [address] [place] [address] Referral ID Status Reason Start Date Expiration Date Visits Re quested Visits Authorized [id number] Closed 05/12/2019 08/10/2019 1 1 GER INFUSION Reason for Visit * Diagnostic Imaging (Routine) - Closed Specialty Diagnoses / Procedures Referred By Contac t Referred To Contact Radiology Diagnoses Primary cancer of right lower lobe of lung (HCC) Procedures MRI Brain W WO Contrast Kip Del Rio MD [address] [address] Phone: tel: fax: [address] [address] Referral ID Status Reason Start Date Expiration Date Visits Re quested Visits Authorized [id number] Closed 05/12/2019 08/10/2019 1 1 Encounter Details Date Type Department Care Team (Latest Contact Info) Description 05/20/2019 1:51 PM MANAGER INFUSION - 05/20/2019 11:59 PM MANAGER INFUSION Hospital Encounter [facility] Radiology [address] [place] [address] Kip Del Rio MD [address] [facility] [address] [place], [place] [id number] Primary cancer of right lower lobe of lung (CMS/HCC) Discharge Disposition: Discharge to home or self care Social History Tobacco Use Types Packs/Day Years Used Date Smoking Tobacco: Never Smokeless Tobacco: Never Alcohol Use Standard Drinks/Week Comments Yes 0 (1 standard drink = 0.6 oz pur e alcohol) social Sex and Gender Information Value Date Recorded Sex Assigned at Not on file Legal Sex Male 1:17 AM MANAGER INFUSION Gender Identity Not on file Sexual Orientation Straight 09/22/2019 8: 21 PM CDT documented as of this encounter Medications at Time of Discharge amLODIPine (NORVASC) 10 mg tabletIndications: hypertension Take 1 tablet (10 mg total) by mouth every morning 04/10/2019 acetaZOLAMIDE ER (DIAMOX SEQUAL) 500 mg capsuleIndications :idiopathic intracranial hypertension Take 500 mg by mouth 2 (two) times a day 1 cetirizine (ZyrTEC) 10 mg tabletIndications: Seasonal Allergic Rhinitis Take 10 mg by mouth every morning 2 cyclobenzaprine (FLEXERIL) 10 mg tablet Take 10 mg by mouth 3 (three) times a day as needed 05/12/2018 0 HYDROcodone-acetam inophen 2.5-325 mg tablet Take 1 tablet by mouth every 4 (four) hours 10 tablet 05/19/2019 0 LORazepam (ATIVAN) 0.5 mg tabletIndications: anxiety Take 0.5 mg by mouth every 6 (six) hours as needed for anxiety 2 pravastatin (PRAVACHOL) 20 mg tabletIndications: hyperlipidemia Take [...] CONTRAST Schedule Routine, Read Routine (OP Routine) 05/20/2019 3:11 PM MANAGER INFUSION Primary cancer of right lower lobe of lung (CMS/HCC) documented in this encounter Results * MRI Brain W WO Contrast (05/20/2019 3:11 PM MANAGER INFUSION) Anatomical Region Laterality Modality Head and Neck N/A Magnetic Resonan ce 05/20/2019 3:38 PM MANAGER INFUSION Impressions 05/20/2019 4:17 PM MANAGER INFUSION 1. ??No enhancing brain parenchymal lesions identified. 2. Diffusely decreased osseous marrow signal in the calvarium and visualized spine. ??This is a nonspecific finding that can be seen in setting of chronic anemia or obesity. ??Diffuse osseous metastatic disease is thought to be a less likely possibility given that no FDG avid osseous lesions were identified on the PET CT from 05/03/2019. Dictated by: Walter Mooney M.D. The radiology attending physician has personally reviewed this study, and had reviewed and/or edited this written report and agrees with it. Electronically signed by: Wayne aVzquez M.D. 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 ??Evaluate for brain metastases. TECHNIQUE: Multiplanar multi-weighted MRI of the brain and brainstem was performed without and with intravenous contrast using the general brain protocol. Contrast information: 15 mL Dotarem COMPARISON: Outside hospital MRI dated 03/23/2019 FINDINGS: There is diffusely decreased osseous marrow signal involving the calvarium and visualized spine. ?? The superior sagittal sinus demonstrates normal venous flow. ??The corpus callosum is normal in shape and signal intensity. ??The posterior fossa is unremarkable. The pituitary and sella are normal. ??The brainstem and craniocervical junction are unremarkable. Diffusion weighted images reveal no hyperintensities to suggest acute cerebral infarction. ??The susceptibility weighted sequences reveal no evidence of acute or chronic hemorrhage. ??The ventricles are normal in size and position without evidence of hydrocephalus . There are no areas of abnormal contrast enhancement. The paranasal sinuses are normal. ??The visualized portions of the mastoids are unremarkable. ??The orbits appear normal. ??Normal flow voids are demonstrated in the carotid arteries and basilar artery. 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 Evaluate for brain metastases. TECHNIQUE: Multiplanar multi-weighted MRI of the brain and brainstem was performed without and with intravenous contrast using the general brain protocol. Contrast information: 15 mL Dotarem COMPARISON: Outside hospital MRI dated 03/23/2019 FINDINGS: There is diffusely decreased osseous marrow signal involving the calvarium and visualized spine. The superior sagittal sinus demonstrates normal venous [...] in size and position without evidence of hydrocephalus . There are no areas of abnormal contrast enhancement. The paranasal sinuses are normal. The visualized portions of the mastoids are unremarkable. The orbits appear normal. Normal flow voids are demonstrated in the carotid arteries and basilar artery. IMPRESSION: 1. No enhancing brain parenchymal lesions identified. 2. Diffusely decreased osseous marrow signal in the calvarium and visualized spine. This is a nonspecific finding that can be seen in setting of chronic anemia or obesity. Diffuse osseous metastatic disease is thought to be a less likely possibility given that no FDG avid osseous lesions were identified on the PET CT from 05/03/2019. Dictated by: Walter Mooney M.D. The radiology attending physician has personally reviewed this study, and had reviewed and/or edited this written report and agrees with it. Electronically signed by: Wayne Vazquez M.D. Kip Del Rio MD IM MRI PROCEDURES Final R esult documented in this encounter Visit Diagnoses Diagnosis Primary cancer of right lower lobe of lung (HCC) documented in this encounter Administered Medications Inactive Administered Medications - up to 3 most recent administrations Medication Order MAR Action Action Date Dose Rate Site gadoterate meglumine (DOTAREM) 0.5 mmol/mL injection 15 mL 15 mL, intravenous, Once in imaging, contrast, Starting on Thu05/20/19 at 1506, For 2 doses Given 05/20/2019 3:08 PM MANAGER INFUSION 15 mL gadoterate meglumine (DOTAREM) 0.5 mmol/mL injection 15 mL 15 mL, intravenous, Once in imaging, contrast, Starting on Thu05/20/19 at 1507, For 1 dose Given 05/20/2019 3:08 PM MANAGER INFUSION 15 mL documented in this encounter Orders Medications Ordered That Vikram ht Not Have Been Administered Count Last Ordered Date First Ordered Date gadoterate meglumine (DOTARE M) 0.5 mmol/mL injection 15 mL 1 05/20/2019 documented in this encounter Care Teams Counter Hop Relationship Specialty Start Date End Date Clara Stanley PA [address] [place] [address] PCP - General Nurse Practitioner 04/05/19 Jasper Canchola MD [address] [place] [address] Surgeon Thoracic Surgery 05/11/19 Alexis Lopez MD [address] [facility] [address] [address] Hand Cooper Helper Pulmonary Disease 05/11/19 Kip Del Rio MD [address] [facility] [address] [place] [address] Medical Oncologist/Real Estate Sales Manager Hematology and Oncology 05/11/19 documented as of this encounter
--- OUTSIDE RECORDS SUMMARY | 2024-03-02 03:48 | XMS_ITS | Encounter Summary ---
Author Organization [facility] Address [address] [place] [address] Phone Care Team Providers Care Spinning Operator Name Role Phone Clara Stanley Primary Care Provider + Jasper Canchola MD Unavailable Alexis Lopez MD Unavailable [phone] Kip Del Rio MD Unavailable [phone] Encounter Details Date Type Department Care Team (Late st Contact Info) Description 05/12/2019 10:30 AM GLASS CHECKER Lab [facility] Oncology [address] [facility] 7th [place] [address] [place] [address] Kip Del Rio MD [address] [facility] [address] [place] [address] 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) Social History Tobacco Use Types Packs/Day Years Used Date Smoking Tobacco: Never Smokeless Tobacco: Never Sex and Gender Information Value Date Recorded Sex Assigned at Not on file Legal Sex Male 1:17 AM GLASS CHECKER Gender Identity Not on file Sexual Orientation Straight 09/22/2019 8: 21 PM CDT documented as of this encounter Plan of Treatment Not on file documented as of this encounter Visit Diagnoses Diagnosis 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 [place] [address] Surgeon Thoracic Surgery 05/11/19 Alexis Lopez MD [address] [address] Lead Machinist Pulmonary Disease 05/11/19 Kip Del Rio MD [address] [facility] [address] [place] [address] Medical Oncologist/Distribution Dispatcher Hematology and Oncology 05/11/19 documented as of this encounter
--- OUTSIDE RECORDS SUMMARY | 2024-03-02 03:48 | XMS_ITS | Encounter Summary ---
Author Organization [facility] Healthcare Address [address] [place] [address] Care Team Providers Care Certified Addiction Counselor Name Role Phone Clara Stanley Primary Care Provider + Jasper Canchola MD Unavailable Alexis Lopez MD Unavailable [phone] Kip Del Rio MD Unavailable Encounter Details Date Type Department Care Team (Latest Contact Info) Description 2019 6:04 PM MAGAZINE EDITOR - 2019 11:59 PM MAGAZINE EDITOR Hospital Encounter [facility] [address] [place] [address] Discharge Disposition: Discharge to home or self care Social History Tobacco Use Types Packs/Day Years Used Date Smoking Tobacco: Never Smokeless Tobacco: Never Alcohol Use Standard Drinks/Week Comments Yes 0 (1 standard drink = 0.6 oz pur e alcohol) social Sex and Gender Information Value Date Recorded Sex Assigned at Not on file Legal Sex Male 1:17 AM MAGAZINE EDITOR Gender Identity Not on file Sexual Orientation [...] Procedure Name Priority Date/Time Associated Diagnosis Comments PET OUTSIDE REFERENCE Routine 2019 6:04 PM MAGAZINE EDITOR Diagnosis unknown documented in this encounter Results * PET Outside Reference (2019 6:04 PM MAGAZINE EDITOR) Impressions [facility] - 2019 6:04 PM MAGAZINE EDITOR These images are for Reference purposes only and have not been reviewed by [facility]. ??There will be no report generated by a [facility] Radiologist. Narrative [facility] - 2019 6:04 PM MAGAZINE EDITOR EXAMINATION: ??Images For Reference Purposes Only us Jasper Canchola MD IMG PET PROCEDURES Final Result [facility] documented in this encounter Visit Diagnoses Not on filedocumented in this encounter Care Teams Certified Addiction Counselor Relationship Specialty Start Date End Date Clara Stanley PA [address] [place] [id number] PCP - General Nurse Practitioner 04/05/19 Jasper Canchola MD [address] [place] [address] Surgeon Thoracic Surgery 05/11/19 Alexis Lopez MD [address] [address] Pumping Supervisor Pulmonary Disease 05/11/19 Kip Del Rio MD [address] [facility] [address] [place] [address] Medical Oncologist/Perfect Bind Machine Operator Hematology and Oncology 05/11/19 documented as of this encounter
--- OUTSIDE RECORDS SUMMARY | 2024-03-02 03:48 | XMS_ITS | Encounter Summary ---
Author Organization [facility] Healthcare Address [address] [place] [address] Care Team Providers Care Plant Guide Name Role Phone Clara Stanley Primary Care Provider + Jasper Canchola MD Unavailable Alexis Lopez MD Unavailable [phone] Kip Del Rio MD Unavailable Encounter Details Date Type Department Care Team (Latest Contact Info) Description 05/11/2019 1:47 PM SKY DIVER - 05/11/2019 11:59 PM SKY DIVER Hospital Encounter [facility] [address] [place] [address] Discharge Disposition: Discharge to home or self care Social History Tobacco Use Types Packs/Day Years Used Date Smoking Tobacco: Never Smokeless Tobacco: Never Sex and Gender Information Value Date Recorded Sex Assigned at Not on file Legal Sex Male 1:17 AM SKY DIVER Gender Identity Not on file Sexual Orientation [...] times a day as needed 05/12/2018 0 dicyclomine (BENTYL) 20 mg tablet Take 20 mg by mouth every 6 (six) hours 04/09/2019 0 omeprazole (PriLOSEC) 40 mg capsule Take 40 mg by mouth 2 times daily 0 pravastatin (PRAVACHOL) 20 mg tabletIndications: hyperlipidemia Take 1 tablet (20 mg total) by mouth every morning 04/10/2019 4 ranitidine (ZANTAC) 150 mg capsule Take 150 mg by mouth 2 (two) times a day 04/01/2019 0 sucralfate (CARAFATE) 1 gram tablet TK 1 T PO BEFORE MEALS AND AT BEDTIME 04/12/2019 0 documented as of this encounter Discharge Disposition Disposition Code Departure Means Destination Discharge to home or self care documented in this encounter Plan of Treatment Not on file documented as of this encounter Procedures Procedure Name Priority Date/Time Associated Diagnosis Comments NEURO CT MR OUTSIDE REFERENCE Routine 05/11/2019 1:47 PM SKY DIVER Diagnosis unknown documented in this encounter Results * Neuro CT MR Outside Reference (05/11/2019 1:47 PM SKY DIVER) Impressions [facility] - 05/11/2019 1:47 PM SKY DIVER These images are for Reference purposes only and have not been reviewed by [facility]. ??There will be no report generated by a [facility] Radiologist. Narrative [facility] - 05/11/2019 1:47 PM SKY DIVER EXAMINATION: ??Images For Reference Purposes Only us Kip Del Rio MD IMG CT PROCEDURES Final Re sult [facility] documented in this encounter Visit Diagnoses Not on filedocumented in this encounter Care Teams Plant Guide Relationship Specialty Start Date End Date Clara Stanley PA [address] [place] [phone] PCP - General Nurse Practitioner 04/05/19 Jasper Canchola MD [address] [place] [address] Surgeon Thoracic Surgery 05/11/19 Alexis Lopez MD [address] [address] Dressed Poultry Grader Pulmonary Disease 05/11/19 Kip Del Rio MD [address] [facility] [address] [place] [address] Medical Oncologist/Correctional Supervising Cook Hematology and Oncology 05/11/19 documented as of this encounter
--- OUTSIDE RECORDS SUMMARY | 2024-03-02 03:48 | XMS_ITS | Encounter Summary ---
Author Organization [facility] Facility Care Team Providers Care Utility Manager Name Role Phone Clara Stanley Primary Care Provider + Jasper Canchola MD Unavailable [phone] Alexis Lopez MD Unavailable [phone] Kip Del Rio MD Unavailable [phone] Jacob Flynn MD Unavailable Encounter Details Date Type Department Care Team (Latest Contact Info) Description 05/25/2019 Travel Social History Tobacco Use Types Packs/Day Years Used Date Smoking Tobacco: Never Smokeless Tobacco: Never Alcohol Use Standard Drinks/Week Comments Yes 0 (1 standard drink = 0.6 oz pur e alcohol) social Sex and Gender Information Value Date Recorded Sex Assigned at Not on file Legal 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 Gender Identity Not on file Sexual Orientation Straight 09/22/2019 8: 21 PM CDT documented as of this encounter Plan of Treatment Not on file documented as of this encounter Visit Diagnoses Not on filedocumented in this encounter Care Teams Utility Manager Relationship Specialty Start Date End Date Clara Stanley PA [address] [place] [address] PCP - General Nurse Practitioner 04/05/19 Jasper Canchola MD [address] [place] [address] [id number] Surgeon Thoracic Surgery 05/11/19 Alexis Lopez MD [address] [facility] [address] [place] [address] [place] [address] Station Baggage Agent Pulmonary Disease 05/11/19 Kip Del Rio MD [address] [facility] [address] [place], [place] [id number] Medical Oncologist/Church Official Hematology and Oncology 05/11/19 Jacob Flynn MD [address] [facility] [address] [place], [place] [id number] Radiation Oncologist Radiation Oncology 05/25/19 documented as of this encounter
--- OUTSIDE RECORDS SUMMARY | 2024-03-02 03:48 | XMS_ITS | Encounter Summary ---
Author Organization [facility] Facility Care Team Providers Care Mechanical Shop Laborer Name Role Phone Clara Stanley Primary Care Provider + Jasper Canchola MD Unavailable [phone] Alexis Lopez MD Unavailable [phone] Kip Del Rio MD Unavailable [phone] Encounter Details Date Type Department Care Team (Latest Contact Info) Description 05/11/2019 Travel Social History Tobacco Use Types Packs/Day Years Used Date Smoking Tobacco: Never Smokeless Tobacco: Never Sex and Gender Information Value Date Recorded Sex Assigned at Not on file 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 Gender Identity Not on file Sexual Orientation Straight 09/22/2019 8: 21 PM CDT documented as of this encounter Plan of Treatment Not on file documented as of this encounter Visit Diagnoses Not on filedocumented in this encounter Care Teams Mechanical Shop Laborer Relationship Specialty Start Date End Date Clara Stanley PA [facility] [place] [address] PCP - General Nurse Practitioner 04/05/19 Jasper Canchola MD [address] [place] [address] Surgeon Thoracic Surgery 05/11/19 Alexis Lopez MD [address] [place] [address] Quality Control Scientist Pulmonary Disease 05/11/19 Kip Del Rio MD [address] [facility] [address] [place] [address] Medical Oncologist/Speech Communication Professor Hematology and Oncology 05/11/19 documented as of this encounter
--- OUTSIDE RECORDS SUMMARY | 2024-03-02 03:48 | XMS_ITS | Encounter Summary ---
Author Organization [facility] Address [address] [place] [address] Care Team Providers Care Fulling Machine Operator Name Role Phone Clara Stanley Primary Care Provider + Jasper Canchola MD Unavailable Alexis Lopez MD Unavailable Kip Del Rio MD Unavailable Jacob Flynn MD Unavailable Encounter Details Date Type Department Care Team (Late st Contact Info) Description 05/26/2019 9:20 AM CDT Anesthesia Event [facility] Operating Room [address] [place] [address] Taj Perkins MD [address] [facility] [address] [place] [address] Anesthesia Record Procedure Summary Procedure Name Responsible Anesthesiologist Anesthesia Start Time Anesthesia Stop Time THORACOTOMY LOBECTOMY / lymph node disection (Right: Chest) Taj Perkins MD 05/26/19 0920 05/26/19 1404 Events Date Time Event Comment 05/26/2019 0919 In Room 0920 An Start 0920 An Start Data 0927 An Induction The patient was reevaluated immediately before moderate or deep sedation use and before anesthesia induction. 0928 An Intubation 0935 Anesthesia Ready 0956 Proc Start 1000 Incision Start 1348 An Extubation 1349 Proc Fin 1350 an stop data 1352 Out of Room 1403 Handoff to RN I completed my handoff [...] disposition at the time of handoff: PACU 1404 An Stop Meds Name Total midazolam PF 1 mg/mL 2 mg lidocaine 1 % PF 3 mL fentaNYL 300 mcg propofol 200 mg rocuronium 140 mg succinylcholine 160 mg HYDROmorphone 2 mg/mL 2 mg ondansetron PF (ZOFRAN) 2 mg/mL injectio n 4 mg glycopyrrolate 0.8 mg ceFAZolin 3,000 mg norepinephrine in dextrose 5 % (LEVOPHED) 8,000 mcg/250 mL (32 mcg/mL) infusion (premix) 1.52 mg lidocaine 2 % PF 25 mL bupivacaine (MARCAINE) 10 mL in sodium c hloride 0.9% 20 mL epidural 8 mL neostigmine injection 1 mg/mL 5 mg Lactated Ringer's (LR) infusion 0 mL * Agents Name O2% N2O O2 N2O Sevoflurane Inspired Sevoflurane * Blood No blood administrations on file. Lines, Drains, and Airways Type Details Placement Removal RETIRED Surgical Site 05/19/19; 0633; Ne ck; 02/16/24 (Retired LDA, Removed/Completed by [employer] with LDA Utility); 1213 (Retired LDA, Removed/Completed by [employer] with LDA Utility) 05/19/19 0633 by Rickey Booker RN 02/16/24 1213 by Discharge Provider, Automatic Peripheral IV Placement Date: 05/26/19; Placement Time: 08; Catheter Size: 18 G; Orientation: Left; Location: Forearm; Site Prep: Chlorhexidine; Insertion Attempts: 1; Patient Tolerance: Tolerated well; Removal Date: 05/30/19 05/26/19 0808 by Deb Gabriel RN 05/30/19 0000 by Matteo Hernandez, KAMILA RETIRED Surgical Site 05/26/19; 0916; Ri ght; Chest; 12/03/24 (Retired LDA, Removed/Completed by [facility] with LDA Utility); 1213 (Retired LDA, Removed/Completed by [facility] with LDA Utility) 05/26/19 0916 by Rickey Booker RN 02/16/24 1213 by Discharge Provider, Automatic Urethral Catheter Placement Date: 05/26/19; Placement Time: 0940; Inserted by: Dr. Andria Haji MD; Type: Straight-tip, Non-latex; Size: 16 Fr.; Balloon Size: 10 mL; Urine Returned: Yes; Removal Date: 05/27/19; Removal Time: 1030; Removal Reason: Per protocol, Per order 05/26/19 0940 by Rickey Booker RN 05/27/19 1030 by Lin Mejia RN ETT Placement Date: 05/26/19; Placement Time: 1008 (created via procedure documentation); Mask Ventilation: 0; Technique: Video laryngoscopy; Type: ETT - double lumen left; Double Lumen Tube Size: 39 Fr; Cuffed: Yes; Blade Size: 4; Location: Oral; Grade View: Grade I; Insertion Attempts: 1; Placement Verification: Auscultation, Capnometry; Removal Date: 05/26/19; Removal Time: 1350 05/26/19 1008 by Taj Perkins MD 05/26/19 1350 by Taj Perkins MD Arterial Line Placement Date: 05/26/19; Placemnt Time: 1008 (created via procedure documentation); Size: 20 G; Orientation: Left; Location: Radial; Securement: Taped, Transparent dressing; Removal Date: 05/27/19; Removal Time: 0900; Removal Reason: Per order 05/26/19 1008 by Taj Perkins MD 05/27/19 0900 by Lin Mejia, KAMILA Epidural Placement Date: 05/26/19; Placement Time: 1009 (created via procedure documentation); 05/30/19; 1247 05/26/19 1009 by Taj Perkins MD 05/30/19 1247 by Imelda Ramesh RN Peripheral IV Placement Date: 05/26/19; Placement Time: 1010 (created via procedure documentation); Catheter Size: 18 G; Orientation: Right; Location: Hand; Site Prep: Alcohol; Insertion Attempts: 1; Removal Date: 05/30/19 05/26/19 1010 by Taj Perkins MD 05/30/19 0000 by Matteo Hernandez RN Chest Tube Placement Date: 05/26/19; Placement Time: 1259; Inserted by: DR. Sushant MD; Orientation: Right; Location: Pleural; Size: 28 Fr; Drainage System: Suction; Removal Date: 05/29/19; Removal Time: 0839 05/26/19 1259 by Rickey Booker RN 05/29/19 0839 by Kwaku Matos RN Oral/Nasal Airway Placement Date: 05/26/19; Placement Time: 1330; Non-Surgical Airway Device: Nasal pharyngeal airway; Removal Date: 05/26/19; Removal Time: 1500 05/26/19 1330 by Vera Atkins RN 05/26/19 1500 by Vera Atkins RN documented in this encounter Social History Tobacco Use Types Packs/Day Years Used Date Smoking Tobacco: Never Smokeless Tobacco: Never Alcohol Use Standard Drinks/Week Comments Yes 0 (1 standard drink = 0.6 oz pur e alcohol) social Sex and Gender Information Value Date Recorded Sex Assigned at Not on file 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 No / Unsure 05/26/2019 7:38 AM CDT documented as of this encounter OR Notes * Anesthesia Postprocedure Evaluation - Sanchez, Yadira Pugh MD - 05/26/2019 3:36 PM CDT Patient: Kwaku Kulkarni Procedure Summary Date: 05/26/19 Room / Location: [facility] OR POD 3 ROOM 304 / [facility] OR POD 3 Anesthesia Start: 919 Anesthesia Stop: 140 Procedure: THORACOTOMY LOBECTOMY / lymph node disection (Right Chest) Diagnosis: Malignant neoplasm of lower lobe of right lung (CMS/HCC) (Malignant neoplasm of lower lobe of right lung (CMS/HCC) [C34.31]) Surgeon: Jasper Canchola MD Responsible Provider: Taj Perkins MD Anesthesia Type: general, epidural ASA Status: 3 Anesthesia Type: general, epidural Last vitals BP 106/51 Pulse 70 Temp 36.2 ??C (97.2 ??F) (Temporal) Resp 11 SpO2 94% Anesthesia Post Evaluation Patient location during evaluation: PACU Patient participation: complete - patient participated Level of consciousness: fully awake Pain score: 4 Pain management: adequate Airway patency: adequate Evidence of recall: no Anesthetic complications: no Cardiovascular status: hemodynamically stable Respiratory status: acceptable, spontaneous ventilation and nasal cannula Hydration status: acceptable Pt is: normothermic Nausea/Vomiting status: none * Anesthesia Procedure Notes - Taj Perkins MD - 05/26/2019 10:10 AM CDT Associated Order(s): Peripheral IV Catheter Peripheral IV Catheter Patient location: OR Staff: Placed by: Anesthesiologist: Taj Perkins MD Preprocedure prep: Prep solution: alcohol PPE: gloves and provider hat/mask PIV line: Laterality: right Catheter size: 18 g Technique: anatomical landmarks Procedure details: good blood return Number of attempts: 1 Assessment: Events: patient tolerated procedure well with no complications * Anesthesia Procedure Notes - Taj Perkins MD - 05/26/2019 10:08 AM CDT Associated Order(s): Epidural Block Epidural Block Patient location: pre-op holding Reason for block: post-op pain management per surgeon request Staff: Placed by: Anesthesiologist: Taj Perkins MD Procedure prep: Preprocedure checklist: patient identified, procedure contraindications assessed, procedure consentobtained, surgical consent, IV checked, risks, benefits and alternatives discussed, monitors and equipment checked and timeout performed Patient Position: sitting Procedure performed while patient: sedate with meaningful contact Monitoring: ECG, oximetry and blood pressure Supplemental oxygen: nasal cannula Prep solution: chlorhexadine/alcohol PPE: provider hat/mask, sterile gloves and sterile drape Skin infiltrated with lidocaine 1%: yes Epidural: Approach: right paramedian Location: T7-8 Number of attempts:greater than 3 attempts Epidural needle: Injection technique: BRIA saline Needle type: Tuohy Needle length: 13 cm Loss of resistance: 9 cm Catheter: Catheter type: multi-orifice. Catheter at skin depth: 15 cm Negative aspiration of blood: no Negative aspiration of CSF: no Test dose: negative. Assessment: Sensory level - left: full eval pending Sensory level - right: full eval pending Events: patient tolerated procedure well with no complications * Anesthesia Procedure Notes - Taj Perkins MD - 05/26/2019 10:08 AM CDT Associated Order(s): Arterial Line Arterial Line Patient location: OR Indication: continuous blood pressure monitoring and blood sampling needed Staff: Supervising provider: Taj Perkins MD Placed by: Anesthesiologist: Taj Perkins MD Procedure prep: Prep solution: chlorhexadine/alcohol Prep: provider hat/mask and sterile gloves Arterial line: Catheter size: 20 gauge Catheter length: 1 and 3/4 inch Seldinger technique: yes Laterality: left Site: radial artery Line secured: tape and Tegaderm Results: good waveform and good blood return Number of attempts: 2 Assessment: Events: patient tolerated procedure well with no complications * Anesthesia Procedure Notes - Taj Perkins MD - 05/26/2019 10:07 AM CDT Associated Order(s): Airway Airway Patient location: OR Urgency: elective Indications for airway management: anesthesia Difficult airway: no Staff: Supervising provider: Taj Perkins MD Emergent airway documentation: Risks and benefits discussed: yes Consent obtained: yes Consent given by: patient Airway prep: Preoxygenated: yes Patient position: sniffing Mask difficulty assessment: 0 - not attempted Spontaneous ventilation during airway: absent Sedation level during airway: GA Final airway details: Final airway type: endotracheal airway Tube type: ETT - double lumen left ETT double lumen: 39 fr Cuffed: yes Technique used for successful ETT placement: video laryngoscopy Devices/Methods used in placement: intubating stylet Insertion site: oral Video blade type: Kenney Blade size: 4 Cormack-Lehane (direct): grade I - full view of glottis Cormack-Lehane (video): grade I - full view of glottis Placement verified by: auscultation and CO2 detection Airway secured with: silk tape Number of attempts: 1 * Anesthesia Preprocedure Evaluation - Taj Perkins MD - 05/26/2019 9:13 AM CDT Images from the original note were not included. Anesthesia Evaluation Kwaku Kulkarni is a 54 y.o. male Procedure(s): THORACOTOMY LOBECTOMY / lymph node disection Pre-Op Diagnosis Codes: * Malignant neoplasm of lower lobe of right lung (CMS/HCC) [C34.31] Patient Active Problem List Diagnosis ??? Right lower lobe pulmonary nodule ??? High grade neuroendocrine carcinoma (CMS/HCC) ??? Lung nodule ??? Primary cancer of right lower lobe of lung (CMS/HCC) ??? Carcinoid tumor of right lung ??? Malignant neoplasm of lower lobe of right lung (CMS/HCC) Past Medical History: Diagnosis Date ??? IIH (idiopathic intracranial hypertension) Past Surgical History: Procedure Laterality Date ??? APPENDECTOMY ??? COLONOSCOPY ??? TONSILLECTOMY No Known Allergies Taking? Last [...] -- Historical Provider, Current Facility-Administered Medications: ??? heparin 5,000 unit/mL injection 5,000 Units, 5,000 Units, subcutaneous, Once ??? Lactated Ringer's (LR) infusion, 50 mL/hr, intravenous, Continuous, Last Rate: 50 mL/hr at 05/26/19 0810, 50 mL/hr at 05/26/19 0810 Facility-Administered Medications Ordered in Other Encounters: ??? lidocaine PF (XYLOCAINE) 10 mg/mL (1 %) preservative free injection, , , PRN, 3 mL at 05/26/19 0828 ??? midazolam (VERSED) preservative free injection, , , PRN, 2 mg at 05/26/19 0824 Social History Tobacco Use Smoking Status Never Smoker Smokeless Tobacco Never Used Substance and Sexual Activity Alcohol Use Yes Comment: social Substance and Sexual Activity Drug Use Never Family History Problem Relation Age of Onset ??? Cancer Mother ??? Heart disease Father ??? Cancer Father ??? Cancer Sister ??? Anesthesia problems Neg Hx Vitals: 05/26/19 0750 05/26/19 0800 05/26/19 0810 BP: 137/79 155/89 Pulse: 82 80 86 Resp: 19 20 30 Temp: SpO2: 94% 95% 98% PT: 05/05/2019: 13.1 SECONDS INR: 05/05/2019: 0.96 [...] 05/05/2019: 0.8 mg/dL STOP-Bang Total Score: 4 DOS Physical Exam Medical history, medications, and allergies reviewed. Attestation: With today's edits, I endorse the the findings of the H&P dated: 05/26/2019. Airway Exam: Mallampati: III Cervical ROM: FROM Cardiovascular Exam: Rate: regular Pulmonary Exam: LCTA EENT Exam: trachea midline Dental Exam: Appears intact Anesthesia Plan ASA 3 Planned anesthesia: General and epidural Invasive Monitors Planned: Invasive monitors planned: arterial line. Postoperative Plan: Patient's planned disposition post procedure is Obs. unit. Informed Consent: Anesthesia plan and risks discussed [...] Procedure Name Priority Date/Time Associated Diagnosis Comments DC AN PROCEDURE PLACEHOLDER Routine 05/26/2019 10:10 AM CDT DC AN PROCEDURE PLACEHOLDER Routine 05/26/2019 10:08 AM CDT DC AN PROCEDURE PLACEHOLDER Routine 05/26/2019 10:08 AM CDT DC AN PROCEDURE PLACEHOLDER Routine 05/26/2019 10:07 AM CDT DC AN ELECTIVE ENDOTRACHEAL AIRWAY Routine 05/26/2019 10:07 AM CDT documented in this encounter Results * DC AN PROCEDURE PLACEHOLDER (05/26/2019 10:10 AM CDT) Narrative Taj Perkins MD - 05/26/2019 10:10 AM CDT Taj Perkins MD ? 05/26/2019 10:10 AM Peripheral IV Catheter Patient location: OR Staff: Placed by: Anesthesiologist: Taj Perkins MD Preprocedure prep: Prep solution: alcohol PPE: gloves and provider hat/mask PIV line: Laterality: right Catheter size: 18 g Technique: anatomical landmarks Procedure details: good blood return Number of attempts: 1 Assessment: Events: patient tolerated procedure well with no complications Taj Perkins MD ANESTHESIA ORDERABLES Final Result * DC AN PROCEDURE PLACEHOLDER (05/26/2019 10:08 AM CDT) Narrative Taj Perkins MD - 05/26/2019 10:08 AM CDT Taj Perkins MD ? 05/26/2019 10:09 AM Epidural Block Patient location: pre-op holding Reason for block: post-op pain management per surgeon request Staff: Placed by: Anesthesiologist: Taj Perkins MD Procedure prep: Preprocedure checklist: patient identified, procedure contraindications assessed, procedure consent obtained, surgical consent, IV checked, risks, benefits and alternatives discussed, monitors and equipment checked and timeout performed Patient Position: sitting Procedure performed while patient: sedate with meaningful contact Monitoring: ECG, oximetry and blood pressure Supplemental oxygen: nasal cannula Prep solution: chlorhexadine/alcohol PPE: provider hat/mask, sterile gloves and sterile drape Skin infiltrated with lidocaine 1%: yes Epidural: Approach: right paramedian Location: T7-8 Number of attempts:greater than 3 attempts Epidural needle: Injection technique: BRIA saline Needle type: Tuohy Needle length: 13 cm Loss of resistance: 9 cm Catheter: Catheter type: multi-orifice. Catheter at skin depth: 15 cm Negative aspiration of blood: no Negative aspiration of CSF: no Test dose: negative. Assessment: Sensory level - left: full eval pending Sensory level - right: full eval pending Events: patient tolerated procedure well with no complications Taj Perkins MD ANESTHESIA ORDERABLES Final Result * DC AN PROCEDURE PLACEHOLDER (05/26/2019 10:08 AM CDT) Narrative Taj Perkins MD - 05/26/2019 10:08 AM CDT Taj Perkins MD ? 05/26/2019 10:08 AM Arterial Line Patient location: OR Indication: continuous blood pressure monitoring and blood sampling needed Staff: Supervising provider: Taj Perkins MD Placed by: Anesthesiologist: Taj Perkins MD Procedure prep: Prep solution: chlorhexadine/alcohol Prep: provider hat/mask and sterile gloves Arterial line: Catheter size: 20 gauge Catheter length: 1 and 3/4 inch Seldinger technique: yes Laterality: left Site: radial artery Line secured: tape and Tegaderm Results: good waveform and good blood return Number of attempts: 2 Assessment: Events: patient tolerated procedure well with no complications Taj Perkins MD ANESTHESIA ORDERABLES Final Result * DC AN ELECTIVE ENDOTRACHEAL AIRWAY, DC AN PROCEDURE PLACEHOLDER (05/26/2019 10:07 AM CDT) Narrative Taj Perkins MD - 05/26/2019 10:07 AM CDT Taj Perkins MD ? 05/26/2019 10:08 AM Airway Patient location: OR Urgency: elective Indications for airway management: anesthesia Difficult airway: no Staff: Supervising provider: Taj Perkins MD Emergent airway documentation: Risks and benefits discussed: yes Consent obtained: yes Consent given by: patient Airway prep: Preoxygenated: yes Patient position: sniffing Mask difficulty assessment: 0 - not attempted Spontaneous ventilation during airway: absent Sedation level during airway: GA Final airway details: Final airway type: endotracheal airway Tube type: ETT - double lumen left ETT double lumen: 39 fr Cuffed: yes Technique used for successful ETT placement: video laryngoscopy Devices/Methods used in placement: intubating stylet Insertion site: oral Video blade type: Kenney Blade size: 4 Cormack-Lehane (direct): grade I - full view of glottis Cormack-Lehane (video): grade I - full view of glottis Placement verified by: auscultation and CO2 detection Airway secured with: silk tape Number of attempts: 1 us Taj Perkins MD ANESTHESIA ORDERABLES Final Result documented in this encounter Visit Diagnoses Not on filedocumented in this encounter Administered Medications Inactive Administered Medications - up to 3 most recent administrations Medication Order MAR Action Action Date Dose Rate Site bupivacaine (MARCAINE) 10 mL in sodium chloride 0.9% 20 mL epidural Continuous PRN, Starting on Priscila 05/26/19 at 1319, Anesthesia Intra-op New Bag 05/26/2019 1:19 PM CDT 8 mL ceFAZolin (ANCEF) injection As needed, Starting on Priscila 05/26/19 at 0942, Anesthesia Intra-op Given 05/26/2019 9:42 AM CDT 3,000 mg fentaNYL (SUBLIMAZE) preservative free injection intravenous, As needed, Starting on Priscila 05/26/19 at 0831, Anesthesia Intra-op Given 05/26/2019 10:19 AM CDT 100 mcg Given 05/26/2019 9:21 AM CDT 150 mcg Given 05/26/2019 8:31 AM CDT 50 mcg glycopyrrolate (ROBINUL) injection intravenous, Administer over 1 Minutes, As needed, Starting on Priscila 05/26/19 at 1326, Anesthesia Intra-op Given 05/26/2019 1:26 PM CDT 0.8 mg HYDROmorphone (DILAUDID) injection intravenous, Administer over 2 Minutes, As needed, Starting on Priscila 05/26/19 at 1045, Anesthesia Intra-op Given 05/26/2019 1:58 PM CDT 0.5 mg Given 05/26/2019 1:18 PM CDT 0.5 mg Given 05/26/2019 11:06 AM CDT 0.5 mg Lactated Ringer's (LR) infusion 50 mL/hr, intravenous, Continuous, Starting on Priscila 05/26/19 at 0815, Pre-Op Rate/Dose Change 05/26/2019 9:04 AM CDT 50 mL/hr New Bag 05/26/2019 8:10 AM CDT 50 mL/hr 50 mL/hr lidocaine (XYLOCAINE) 20 mg/mL (2 %) preservative free injection As needed, Starting on Priscila 05/26/19 at 0948, Anesthesia Intra-op Given 05/26/2019 12:17 PM CDT 5 mL Given 05/26/2019 11:15 AM CDT 5 mL Given 05/26/2019 10:32 AM CDT 7 mL lidocaine PF (XYLOCAINE) 10 mg/mL (1 %) preservative free injection As needed, Starting on Priscila 05/26/19 at 0828, Anesthesia Intra-op Given 05/26/2019 8:28 AM CDT 3 mL midazolam (VERSED) preservative free injection Administer over 2 Minutes, As needed, Starting on Priscila 05/26/19 at 0824, Anesthesia Intra-op Given 05/26/2019 8:24 AM CDT 2 mg neostigmine (PROSTIGMIN) injection Administer over 3 Minutes, As needed, Starting on Priscila 05/26/19 at 1326, Anesthesia Intra-op Given 05/26/2019 1:26 PM CDT 5 mg norepinephrine in dextrose 5% (LEVOPHED) 8,000 mcg/250 mL (32 mcg/mL) infusion (premix) 0.01-2 mcg/kg/min ? 157.3 kg (2.9494-589.875 mL/hr, rounded to 2.95-589.88 mL/hr), 32 mcg/mL, intravenous, Titrated, Starting on Priscila 05/26/19 at 1030, Until Priscila 05/26/19 at 2127, Initial rate: 0.05 mcg/kg/min, Titrate: Up/Down, Titrate by: 0.01 mcg/kg/min, Every: 2 minutes, Goal: MAP, MAP Goal: 65-75 mmHg, Routine Rate/Dose Change 05/26/2019 12:36 PM CDT 0.05 mcg/kg/min 14.75 mL/hr Rate/Dose Change 05/26/2019 11:32 AM CDT 0.03 mcg/kg/min 8 .85 mL/hr New Bag 05/26/2019 9:49 AM CDT 0.05 mcg/kg/min 14.75 mL /hr ondansetron (ZOFRAN) injection intravenous, Administer over 2 Minutes, As needed, Starting on Priscila 05/26/19 at 1315, Anesthesia Intra-op Given 05/26/2019 1:15 PM CDT 4 mg propofoL (DIPRIVAN) IV intravenous, As needed, Starting on Priscila 05/26/19 at 0927, Anesthesia Intra-op Given 05/26/2019 9:27 AM CDT 200 mg rocuronium (ZEMURON) injection intravenous, As needed, Starting on Priscila 05/26/19 at 0937, Anesthesia Intra-op Given 05/26/2019 12:44 PM CDT 10 mg Given 05/26/2019 11:56 AM CDT 10 mg Given 05/26/2019 11:21 AM CDT 20 mg succinylcholine (ANECTINE) injection intravenous, As needed, Starting on Priscila 05/26/19 at 0927, Anesthesia Intra-op Given 05/26/2019 9:27 AM CDT 160 mg documented in this encounter Orders Medications Ordered That Vikram ht Not Have Been Administered Count Last Ordered Date First Ordered Date midazolam (VERSED) preservat lanette free injection 1 05/26/2019 documented in this encounter Care Teams Fulling Machine Operator Relationship Specialty Start Date End Date Clara Stanley PA [address] [place] [id number] PCP - General Nurse Practitioner 04/05/19 Jasper Canchola MD [address] [place] [id number] Surgeon Thoracic Surgery 05/11/19 Alexis Lopez MD [address] [address] Restaurant Operations Manager Pulmonary Disease 05/11/19 Kip Del Rio MD [address] [place] [address] Medical Oncologist/Electrician Machine Shop Hematology and Oncology 05/11/19 Jacob Flynn MD [address] [place] [address] Radiation Oncologist Radiation Oncology 05/25/19 documented as of this encounter
--- OUTSIDE RECORDS SUMMARY | 2024-03-02 03:48 | XMS_ITS | Encounter Summary ---
Author Organization [facility] Healthcare Address [address] [place] [address] Care Team Providers Care Computer Systems Engineer Name Role Phone Clara Stanley Primary Care Provider + Jasper Canchola MD Unavailable [phone] Alexis Lopez MD Unavailable [phone] Kip Del Rio MD Unavailable [phone] Encounter Details Date Type Department Care Team (Latest Contact Info) Description 05/12/2019 2:55 PM ROTARY SHEAR CUTTER Hospital Encounter [facility] [address] [place] [id number] Discharge Disposition: Discharge to home or self care Social History Tobacco Use Types Packs/Day Years Used Date Smoking Tobacco: Never Smokeless Tobacco: Never Sex and Gender Information Value Date Recorded Sex Assigned at Not on file Legal Sex Male 1:17 AM ROTARY SHEAR CUTTER Gender Identity Not on file Sexual [...] mouth every 6 (six) hours 04/09/2019 0 HYDROcodone-acetam inophen 2.5-325 mg tablet Take 1 tablet by mouth every 4 (four) hours 10 tablet 05/19/2019 0 LORazepam (ATIVAN) 0.5 mg tablet Take 1 tablet (0.5 mg total) by mouth nightly as needed for anxiety 30 tablet 3 05/12/2019 0 omeprazole (PriLOSEC) 40 mg capsule Take [...] Comments NEURO CT MR OUTSIDE REFERENCE Routine 05/12/2019 2:55 PM ROTARY SHEAR CUTTER Diagnosis unknown documented in this encounter Results * Neuro CT MR Outside Reference (05/12/2019 2:55 PM ROTARY SHEAR CUTTER) Impressions [facility] - 05/12/2019 2:55 PM ROTARY SHEAR CUTTER These images are for Reference purposes only and have not been reviewed by [facility] Radiology. ??There will be no report generated by a [facility] Radiologist. Narrative [facility] - 05/12/2019 2:55 PM ROTARY SHEAR CUTTER EXAMINATION: ??Images For Reference Purposes Only us Kip Del Rio MD IMG CT PROCEDURES Final Re sult [facility] documented in this encounter Visit Diagnoses Not on filedocumented in this encounter Care Teams Computer Systems Engineer Relationship Specialty Start Date End Date Clara Stanley PA [address] [place] [address] PCP - General Nurse Practitioner 04/05/19 Jasper Canchola MD [address] [place] [address] Surgeon Thoracic Surgery 05/11/19 Alexis Lopez MD [address] [address] Violent Crimes Detective Pulmonary Disease 05/11/19 Kip Del Rio MD [address] [facility] [address] [place] [address] Medical Oncologist/Director Public Policy Hematology and Oncology 05/11/19 documented as of this encounter
--- OUTSIDE RECORDS SUMMARY | 2024-03-02 03:48 | XMS_ITS | Encounter Summary ---
Author Organization [facility] Address [address] [place] [address] Care Team Providers Care Silk Washing Machine Operator Name Role Phone Clara Stanley Primary Care Provider + Jasper Canchola MD Unavailable Alexis Lopez MD Unavailable Kip Del Rio MD Unavailable Encounter Details Date Type Department Care Team (Late st Contact Info) Description 05/19/2019 7:24 AM ORTHOPEDIC SHOES SALESPERSON Anesthesia Event [facility] Operating Room [address] [place] [address] Ishan Pitts MD [address] [place] [address] Adalid Almonte MD [address] [place] [address] Anesthesia Record Procedure Summary Procedure Name Responsible Anesthesiologist Anesthesia Start Time Anesthesia Stop Time MEDIASTINOSCOPY CERVICAL (Chest) Ishan Pitts MD 05/19/19 0724 05/19/19 0934 Events Date Time Event Comment 05/19/2019 0712 0724 An Start 0727 In Room 0728 An Start Data 0738 An Induction The patient was reevaluated immediately before moderate or deep sedation use and before anesthesia induction. 0746 An Intubation 0748 Anesthesia Ready 0802 Proc Start 0802 Incision Start 0856 Local injected by surgeon 0917 Proc Fin 0919 An Extubation 0925 Out of Room 0925 an stop data 0934 Handoff to RN I completed my handoff [...] disposition at the time of handoff: PACU 0934 An Stop 1027 Release from care Meds Name Total midazolam PF 2 mg lidocaine 1 % PF 100 mg fentaNYL 200 mcg propofol 300 mg rocuronium 70 mg phenylephrine 100 mcg/mL 150 mcg HYDROmorphone 2 mg/mL 0.2 mg ondansetron PF (ZOFRAN) 2 mg/mL injectio n 4 mg glycopyrrolate 1 mg neostigmine injection 1 mg/mL 5 mg ceFAZolin 3,000 mg dexamethasone 4 mg/ml 4 mg ketorolac 30 mg Lactated Ringer's (LR) infusion 0 mL NS 0.9% 0 mL * Agents Name O2% N2O O2 N2O Air Sevoflurane Inspired Sevoflurane * Blood No blood administrations on file. Lines, Drains, and Airways Type Details Placement Removal Peripheral IV Placement Date: 05/19/19; Placement Time: 0611; Change Due: 05/23/19; Catheter Size: 18 G; Orientation: Left; Location: Forearm; Site Prep: Alcohol; Insertion Attempts: 1; Patient Tolerance: Tolerated well; Removal Date: 05/19/19; Removal Time: 1055; Removal Reason: Therapy completed 05/19/19 0611 by Carisa Molina RN 05/19/19 1055 by Khadijah Barnett RN RETIRED Surgical Site 05/19/19; 0633; Ne ck; 02/16/24 (Retired LDA, Removed/Completed by [facility] with LDA Utility); 1213 (Retired LDA, Removed/Completed by [facility] with LDA Utility) 05/19/19 0633 by Rickey Booker RN 02/16/24 1213 by Discharge Provider, Automatic Peripheral IV Placement Date: 05/19/19; Placement Time: 0808 (created via procedure documentation); Catheter Size: 18 G; Orientation: Left; Location: Hand; Site Prep: Chlorhexidine; Insertion Attempts: 1; Patient Tolerance: Tolerated well; Removal Date: 05/19/19; Removal Time: 1017; Removal Reason: Therapy completed 05/19/19 08 by Adalid Almonte MD 05/19/19 101 by Khadijah Barnett RN ETT Placement Date: 05/19/19; Placement Time: 821 (created via procedure documentation); Mask Ventilation: 4; Technique: Video laryngoscopy; Type: ETT - single; Single Lumen Tube Size: 8 mm; Cuffed: Yes; Laryngoscope: More; Blade Size: 4; Location: Oral; Grade View: Grade III; Insertion Attempts: 2; Placement Verification: Auscultation, Capnometry; Airway Comment: Patient is difficult mask due to obesity, facial hair, and mild mandibular retrognathia. Unable to adequately mask ventilate with two hands and oral airway. Initial attempt at intubation unsuccessful due to Grade III view via DL. Due to desaturation, decision made to abort this attempt rather than attempt utilization of a bougie. Initial attempt aborted and LMA placed providing the ability to adequately ventilate. Second intubation attempt successful with Kenney (Grade 1 view).; Removal Date: 05/19/19; Removal Time: 91805/19/19821 by Adalid Almonte MD 05/19/19918 by Adalid Almonte MD documented in this encounter Social History Tobacco Use Types Packs/Day Years Used Date Smoking Tobacco: Never Smokeless Tobacco: Never Alcohol Use Standard Drinks/Week Comments Yes 0 (1 standard drink = 0.6 oz pur e alcohol) social Sex and Gender Information Value Date Recorded Sex Assigned at Not on file Legal Sex Male 1:17 AM ORTHOPEDIC SHOES SALESPERSON Gender Identity Not on file Sexual Orientation Straight 09/22/2019 8: 21 PM CDT documented as of this encounter OR Notes * Anesthesia Postprocedure Evaluation - Ishan Pitts MD - 05/19/2019 10:24 AM CST Patient: Kwaku Kulkarni Procedure Summary Date: 05/19/19 Room / Location: [facility] OR POD 3 ROOM 304 / [facility] OR POD 3 Anesthesia Start: 723 Anesthesia Stop: 933 Procedure: MEDIASTINOSCOPY CERVICAL (N/A Chest) Diagnosis: Lung nodule (Lung nodule [R91.1]) Surgeon: Jasper Canchola MD Responsible Provider: Ishan Pitts MD Anesthesia Type: general ASA Status: 3 Anesthesia Type: general Last vitals BP 133/78 Pulse 73 Temp 36.4 ??C (97.5 ??F) (Temporal) Resp 14 SpO2 91% Anesthesia Post Evaluation Patient location during evaluation: PACU Patient participation: complete - patient participated Level of consciousness: fully awake Pain management: adequate Airway patency: adequate Evidence of recall: no Anesthetic complications: no Cardiovascular status: acceptable and hemodynamically stable Respiratory status: acceptable, spontaneous ventilation and room air Hydration status: acceptable Pt is: normothermic Nausea/Vomiting status: none Comments: Airway management discussed with patient. I informed him that it was difficult to supply him mask ventilation but that we did not find him to be a difficult intubation (though we did use a video device to assist with the intubation). OPEDIC SHOES SALESPERSON * Anesthesia Procedure Notes - Adalid Almonte MD - 05/19/2019 8:13 AM CSTAssociated Order(s): Airway Airway Patient location: OR Urgency: elective Indications for airway management: anesthesia Difficult airway: no Staff: Supervising provider: Ishan Pitts MD Placed by: Resident: Adalid Almonte MD Emergent airway documentation: Risks and benefits discussed: no Consent obtained: no Consent given by: patient Airway prep: Preoxygenated: yes Patient position: sniffing Mask difficulty assessment: 4 - unable to mask vent Spontaneous ventilation during airway: absent Sedation level during airway: GA Final airway details: Final airway type: endotracheal airway Tube type: ETT ETT size: 8.0 mm Cuffed: yes Technique used for successful ETT placement: video laryngoscopy Devices/Methods used in placement: intubating stylet Insertion site: oral Blade type: More Video blade type: Kenney Blade size: 4 Cormack-Lehane (direct): grade III - view of epiglottis only Cormack-Lehane (video): grade I - full view of glottis Cuff volume: 8 mL Cuff inflated with: air ETT to teeth: 23 cm Placement verified by: auscultation and CO2 detection Airway secured with: silk tape Number of attempts: 2 Ventilation between attempts: supraglottic airway Unsuccessful airway(s) attempted: SGA Unsuccessful approach(es) for ETT: direct laryngoscopy Additional comments: Patient is difficult mask due to obesity, facial hair, and mild mandibular retrognathia. Unable to adequately mask ventilate with two hands and oral airway. Initial attempt at intubation unsuccessfuldue to Grade III view via DL. Due to desaturation, decision made to abort this attempt rather than attempt utilization of a bougie. Initial attempt aborted and LMA placed providing the ability to adequately ventilate. Second intubation attempt successful with Kenney (Grade 1 view). OPEDIC SHOES SALESPERSON * Anesthesia Procedure Notes - Adalid Almonte MD - 05/19/2019 8:08 AM CSTAssociated Order(s): Peripheral IV Catheter Peripheral IV Catheter Patient location: OR Staff: Supervising provider: Ishan Pitts MD Placed by: Resident: Adalid Almonte MD Preprocedure prep: Prep solution: chlorhexadine PPE: provider hat/mask and gloves PIV line: Laterality: left Site: hand Catheter size: 18 g Technique: direct visualization Procedure details: good blood return and occlusive dressing applied Number of attempts: 1 Assessment: Events: patient tolerated procedure well with no complications OPEDIC SHOES SALESPERSON * Anesthesia Preprocedure Evaluation - Ishan Pitts MD - 2019 1:16 PM CST Images from the original note were not included. [facility] Preoperative [facility] Planning Preoperative Evaluation Record Evaluation type/location: [facility] Planned procedure site: [facility] (Pods 2/3/5/PARTITION MAKING 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) Date: 05/13/19 Anesthesia Evaluation Kwaku Kulkarni is a 54 y.o. male Procedure(s): MEDIASTINOSCOPY CERVICAL Pre-Op Diagnosis Codes: * Lung nodule [R91.1] HISTORY HPI Kwaku Kulkarni is a 54 [...] discussed with: Ishan Pitts MD Additional comments: Kwaku Kulkarni is a [...] and grade I/ Negative for peripheral edema (Ashley LSB) Pulmonary Exam: LCTA, bilat EENT Exam: [...] and agree to proceed. All questions answered. OPEDIC SHOES SALESPERSON OPEDIC SHOES SALESPERSON OPEDIC SHOES SALESPERSON documented in this encounter Plan of Treatment Not on file documented as of this encounter Procedures Procedure Name Priority Date/Time Associated Diagnosis Comments ANESTHESIA INTUBATION Routine 05/19/2019 8:13 AM ORTHOPEDIC SHOES SALESPERSON PERIPHERAL LINE Routine 05/19/2019 8:08 AM ORTHOPEDIC SHOES SALESPERSON documented in this encounter Results * Airway (05/19/2019 8:13 AM ORTHOPEDIC SHOES SALESPERSON) Narrative Adalid Almonte MD - 05/19/2019 8:13 AM ORTHOPEDIC SHOES SALESPERSON Adalid Almonte MD ? 05/19/2019 ??8:22 AM Airway Patient location: OR Urgency: elective Indications for airway management: anesthesia Difficult airway: no Staff: Supervising provider: Ishan Pitts MD Placed by: Resident: Adalid Almonte MD Emergent airway documentation: Risks and benefits discussed: no Consent obtained: no Consent given by: patient Airway prep: Preoxygenated: yes Patient position: sniffing Mask difficulty assessment: 4 - unable to mask vent Spontaneous ventilation during airway: absent Sedation level during airway: GA Final airway details: Final airway type: endotracheal airway Tube type: ETT ETT size: 8.0 mm Cuffed: yes Technique used for successful ETT placement: video laryngoscopy Devices/Methods used in placement: intubating stylet Insertion site: oral Blade type: More Video blade type: Kenney Blade size: 4 Cormack-Lehane (direct): grade III - view of epiglottis only Cormack-Lehane (video): grade I - full view of glottis Cuff volume: 8 mL Cuff inflated with: air ETT to teeth: 23 cm Placement verified by: auscultation and CO2 detection Airway secured with: silk tape Number of attempts: 2 Ventilation between attempts: supraglottic airway Unsuccessful airway(s) attempted: SGA Unsuccessful approach(es) for ETT: direct laryngoscopy Additional comments: Patient is difficult mask due to obesity, facial hair, and mild mandibular retrognathia. Unable to adequately mask ventilate with two hands and oral airway. Initial attempt at intubation unsuccessful due to Grade III view via DL. Due to desaturation, decision made to abort this attempt rather than attempt utilization of a bougie. Initial attempt aborted and LMA placed providing the ability to adequately ventilate. Second intubation attempt successful with Kenney (Grade 1 view). Result [facility] Ishan Pitts MD ANESTHESIA ORDERABLES Fin al Result * Peripheral IV Catheter (05/19/2019 8:08 AM ORTHOPEDIC SHOES SALESPERSON) Adalid Bahena MD - 05/19/2019 8:08 AM ORTHOPEDIC SHOES SALESPERSON Adalid Almonte MD ? 05/19/2019 ??8:08 AM Peripheral IV Catheter Patient location: OR Staff: Supervising provider: Ishan Pitts MD Placed by: Resident: Adalid Almonte MD Preprocedure prep: Prep solution: chlorhexadine PPE: provider hat/mask and gloves PIV line: Laterality: left Site: hand Catheter size: 18 g Technique: direct visualization Procedure details: good blood return and occlusive dressing applied Number of attempts: 1 Assessment: Events: patient tolerated procedure well with no complications Ishan Pitts MD ANESTHESIA ORDERABLES Fin al Result documented in this encounter Visit Diagnoses Not on filedocumented in this encounter Administered Medications Inactive Administered Medications - up to 3 most recent administrations Medication Order MAR Action Action Date Dose Rate Site ceFAZolin (ANCEF) injection intravenous, As needed, Starting on Prisicla 05/19/19 at 0755, Anesthesia Intra-op Given 05/19/2019 7:55 AM ORTHOPEDIC SHOES SALESPERSON 3,000 mg dexAMETHasone (DECADRON) 4 mg/mL injection Administer over 2 Minutes, As needed, Starting on Priscila 05/19/19 at 0805, Anesthesia Intra-op Given 05/19/2019 8:05 AM ORTHOPEDIC SHOES SALESPERSON 4 mg fentaNYL (SUBLIMAZE) preservative free injection intravenous, As needed, Starting on Priscila 05/19/19 at 0800, Anesthesia Intra-op Given 05/19/2019 8:15 AM ORTHOPEDIC SHOES SALESPERSON 50 mcg Given 05/19/2019 8:00 AM ORTHOPEDIC SHOES SALESPERSON 50 mcg Given 05/19/2019 7:33 AM ORTHOPEDIC SHOES SALESPERSON 100 mcg glycopyrrolate (ROBINUL) injection intravenous, Administer over 1 Minutes, As needed, Starting on Priscila 05/19/19 at 0908, Anesthesia Intra-op Given 05/19/2019 9:08 AM ORTHOPEDIC SHOES SALESPERSON 1 mg HYDROmorphone (DILAUDID) injection intravenous, Administer over 2 Minutes, As needed, Starting on Priscila 05/19/19 at 0905, Anesthesia Intra-op Given 05/19/2019 9:05 AM ORTHOPEDIC SHOES SALESPERSON 0.2 mg ketorolac (TORADOL) injection As needed, Starting on Priscila 05/19/19 at 0853, Anesthesia Intra-op Given 05/19/2019 9:00 AM ORTHOPEDIC SHOES SALESPERSON 30 mg Lactated Ringer's (LR) infusion 30 mL/hr, intravenous, Continuous, Starting on Priscila 05/19/19 at 0645, Pre-Op New Bag 05/19/2019 7:27 AM ORTHOPEDIC SHOES SALESPERSON New Bag 05/19/2019 6:20 AM ORTHOPEDIC SHOES SALESPERSON 30 mL/hr 30 mL/hr lidocaine PF (XYLOCAINE) 10 mg/mL (1 %) preservative free injection As needed, Starting on Priscila 05/19/19 at 0724, Anesthesia Intra-op Given 05/19/2019 7:38 AM ORTHOPEDIC SHOES SALESPERSON 100 mg midazolam (VERSED) preservative free injection intravenous, Administer over 2 Minutes, As needed, Starting on Priscila 05/19/19 at 0724, Anesthesia Intra-op Given 05/19/2019 7:24 AM ORTHOPEDIC SHOES SALESPERSON 2 mg neostigmine (PROSTIGMIN) injection intravenous, Administer over 3 Minutes, As needed, Starting on Priscila 05/19/19 at 0908, Anesthesia Intra-op Given 05/19/2019 9:08 AM ORTHOPEDIC SHOES SALESPERSON 5 mg ondansetron (ZOFRAN) injection intravenous, Administer over 2 Minutes, As needed, Starting on Priscila 05/19/19 at 0853, Anesthesia Intra-op Given 05/19/2019 8:53 AM ORTHOPEDIC SHOES SALESPERSON 4 mg phenylephrine (J CARLOS-SYNEPHRINE) 0.5 mg/5 mL (100 mcg/mL) in sodium chloride 0.9% (premix) intravenous, As needed, Starting on Priscila 05/19/19 at 0829, Anesthesia Intra-op Given 05/19/2019 8:29 AM ORTHOPEDIC SHOES SALESPERSON 100 mcg Given 05/19/2019 8:20 AM ORTHOPEDIC SHOES SALESPERSON 50 mcg propofoL (DIPRIVAN) IV intravenous, As needed, Starting on Priscila 05/19/19 at 0724, Anesthesia Intra-op Given 05/19/2019 7:45 AM ORTHOPEDIC SHOES SALESPERSON 100 mg Given 05/19/2019 7:41 AM ORTHOPEDIC SHOES SALESPERSON 50 mg Given 05/19/2019 7:38 AM ORTHOPEDIC SHOES SALESPERSON 150 mg rocuronium (ZEMURON) injection intravenous, As needed, Starting on Priscila 05/19/19 at 0740, Anesthesia Intra-op Given 05/19/2019 7:40 AM ORTHOPEDIC SHOES SALESPERSON 70 mg sodium chloride 0.9% infusion Continuous PRN, Starting on Priscila 05/19/19 at 0727, Anesthesia Intra-op New Bag 05/19/2019 7:27 AM ORTHOPEDIC SHOES SALESPERSON documented in this encounter Care Teams Silk Washing Machine Operator Relationship Specialty Start Date End Date Clara Stanley PA [address] [place] [address] PCP - General Nurse Practitioner 04/05/19 Jasper Canchola MD [address] [place] [address] Surgeon Thoracic Surgery 05/11/19 Alexis Lopez MD [address] [facility] [address] [place] [address] [place] [address] Large Animal Veterinarian Pulmonary Disease 05/11/19 Kip Del Rio MD [address] [facility] [address] [place] [address] Medical Oncologist/Apartment Property Manager Hematology and Oncology 05/11/19 documented as of this encounter
--- OUTSIDE RECORDS SUMMARY | 2024-03-02 03:48 | XMS_ITS | Encounter Summary ---
Author Organization [facility] Healthcare Address [address] [place] [address] Care Team Providers Care Photographer Motion Picture Name Role Phone Clara Stanley Primary Care Provider + Jasper Canchola MD Unavailable Alexis Lopez MD Unavailable [phone] Kip Del Rio MD Unavailable Encounter Details Date Type Department Care Team (Late st Contact Info) Description 05/16/[address] [facility] Advanced Medicine Radiation Oncology [address] [facility] Advanced Medicine [facility] [place] [address] Jacob Flynn MD [address] [facility] [address] [place] [address] Social History Tobacco Use Types Packs/Day Years Used Date Smoking Tobacco: Never Smokeless Tobacco: Never Alcohol Use Standard Drinks/Week Comments Yes 0 (1 standard drink = 0.6 oz pur e alcohol) social Sex and Gender Information Value Date Recorded Sex Assigned at Not on file Legal Sex Male 1:17 AM DIRECTOR INTELLIGENCE ANALYSIS PROGRAMS Gender Identity Not on file Sexual Orientation Straight 09/22/2019 8: 21 PM CDT documented as of this encounter Miscellaneous Notes * Telephone Encounter - Khadijah Almaguer - 05/16/2019 10:26 AM CST Patient returned my call to discuss scheduling radiation oncology consultation per referral from medical oncologist Dr. Kip Del Rio. Per patient preference, scheduled with Dr. eGovany Flynn on 05/24 at 11am at [facility]. Patient states all pertinent records (no prior RT) with [facility]; [facility] (ph# [phone]); and [facility] (ph# [phone]). Patient is aware of appointment. CT[employer] INTELLIGENCE ANALYSIS PROGRAMS documented in this encounter Plan of Treatment Not on file documented as of this encounter Visit Diagnoses Not on filedocumented in this encounter Care Teams Photographer Motion Picture Relationship Specialty Start Date End Date Clara Stanley PA [address] [place] [address] PCP - General Nurse Practitioner 04/05/19 Jasper Canchola MD [address] [place] [address] Surgeon Thoracic Surgery 05/11/19 Alexis Lopez MD [address] [facility] [address] [address] Delivery Merchandiser Pulmonary Disease 05/11/19 Kip Del Rio MD [address] [facility] [address] [place] [address] Medical Oncologist/Director Home Health Hematology and Oncology 05/11/19 documented as of this encounter
--- OUTSIDE RECORDS SUMMARY | 2024-03-02 03:48 | XMS_ITS | Encounter Summary ---
Author Organization [facility] Healthcare Address [address] [place] [address] Care Team Providers Care Clinic Lpn Name Role Phone Clara Stanley Primary Care Provider + Jasper Harris MD Unavailable Alexis Lopez MD Unavailable Kip Del Rio MD Unavailable Encounter Details Date Type Department Care Team (Latest Contact Info) Description 05/19/2019 5:30 AM CHANNEL MAN - 05/19/2019 11:15 AM CHANNEL MAN Hospital Encounter [facility] Operating Room [address] [place] [address] Jasper Harris MD [address] [facility] [id number] [place] [address] Lung nodule Discharge Disposition: Discharge to home or self care Social History Tobacco Use Types Packs/Day Years Used Date Smoking Tobacco: Never Smokeless Tobacco: Never Alcohol Use Standard Drinks/Week Comments Yes 0 (1 standard drink = 0.6 oz pur e alcohol) social Sex and Gender Information Value Date Recorded Sex Assigned at Not on file Legal Sex Male 1:17 AM CHANNEL MAN Gender Identity Not on file Sexual Orientation Straight 09/22/2019 8: 21 PM CDT documented as of this encounter Last Filed Vital Signs Vital Sign Reading Time Taken Comments Blood Pressure 134/86 05/19/2019 10:40 AM CHANNEL MAN Pulse 75 05/19/2019 10:45 AM CHANNEL MAN Temperature 36.5 ??C (97.7 ??F) 05/19/2019 10:[address] Respiratory Rate 14 05/19/2019 10:45 AM CHANNEL MAN Oxygen Saturation 94% 05/19/2019 10:45 AM CHANNEL MAN Inhaled Oxygen Concentration - - Weight - - Height - - Body Mass Index - - documented in this encounter Discharge Diagnoses Diagnosis Other malignant neuroendocrine tumors (HCC) - OTHER MALIGNANT NEUROENDOCRINE TUMORS Other secondary neuroendocrine tumors (HCC) - OTHER SECONDARY NEUROENDOCRINE TUMORS Benign intracranial hypertension - BENIGN INTRACRANIAL HYPERTENSION Headache - HEADACHE Morbid (severe) obesity due to excess calories (HCC) - MORBID (SEVERE) OBESITY DUE TO EXCESS CALORIES Unspecified right bundle-branch block - UNSPECIFIED RIGHT BUNDLE-BRANCH BLOCK Other usp (current) drug therapy - OTHER CARE HOME (CURRENT) DRUG THERAPY documented in this encounter Discharge Instructions * Discharge Instructions* Khadijah Barnett, RN - 05/19/2019 10:21 AM CHANNEL MAN Pulmonary Nodules WHAT YOU NEED TO KNOW: Pulmonary nodules are areas of abnormal tissue in your lungs. You may not have any symptoms, or youmay have chest tightness, a cough, chest pain, or shortness of breath. Nodules are usually found with an x-ray or CT scan. Most nodules are not cancerous. However, it is still important for you to return for follow-up testing to monitor your condition. DISCHARGE INSTRUCTIONS: Call 911 for any of the following: ?? You have severe shortness of breath or trouble breathing. ?? Your lips or nails look blue or pale. Seek care immediately if: ?? You cough up blood. ?? You suddenly feel lightheaded or are short of breath. ?? You have chest pain when you take a deep breath or cough. ?? You cannot think clearly. Contact your healthcare provider if: ?? Your symptoms do not improve. ?? You have new symptoms. ?? You have questions or concerns about your condition or care. Follow up with your healthcare provider: Your healthcare provider will refer you to a hot worker. Your hot worker will monitor your nodules for any change or growth. Nodules that grow quickly may require a biopsy to check for cancer. You may need to be monitored for 1 to 3 years. Write down your questions so you remember to ask them during your visits. Do not smoke: Nicotine and other chemicals in cigarettes and cigars can cause lung damage or cancer. Stay away from others who smoke. Ask your healthcare provider for information if you or someone close to you currently smokes and needs help to quit. E-cigarettes or smokeless tobacco still contain nicotine. Talk to your healthcare provider before you use these products. ?? 2017 [employer] Information is for End User's use only and may not be sold, redistributed or otherwise used for commercial purposes. All illustrations and images included in CareNotes?? are the copyrighted property of [employer]. or [employer]. The above information is an educational diagnostician only. It is not intended as medical advice for individual conditions or treatments. Talk to your doctor, nurse or pharmacist before following any medical regimen to see if it is safe and effective for you. Dr. Harris will speak with the patient about follow up before he leaves NEL MAN * Attachments The following attachments cannot be sent through Care Everywhere. * Mediastinoscopy (Discharge Care) (Hebrew) documented in this encounter Medications at Time [...] Refills Last Filled Start Date End Date HYDROcodone-acetam inophen 2.5-325 mg tablet Take 1 tablet by mouth every 4 (four) hours 10 tablet 05/19/2019 05/30/2019 documented in this encounter Discharge Disposition Disposition Code Departure Means Destination Discharge to home or self care documented in this encounter H&P Notes * Jasper Harris MD - 05/19/2019 6:54 AM CST I have reviewed the H&P, examined the patient, and endorse the findings as written. Plan of Care : Based on the above findings, I consider Mp Kulkarni to be an acceptable riskfor : Procedure(s): MEDIASTINOSCOPY CERVICAL NEL MAN Source Note - Elisabeth Kellogg NP - 2019 1:16 PM CHANNEL MAN Images from the original note were not included. Center for Preoperative Assessment and Planning Preoperative Evaluation Record Evaluation type/location: [facility] Planned procedure site: [facility] (Pods 2/3/5/APPLICATIONS SYSTEMS ENGINEER) Date: 05/13/19 Anesthesia Evaluation Mp Kulkarni is [...] and grade I/ Negative for peripheral edema (Cabell LSB) Pulmonary Exam: LCTA, bilat EENT Exam: [...] Total Score: 4 Enzo index score: 100 NEL MAN NEL MAN documented in this encounter Miscellaneous Notes * Perioperative Nursing Note - Khadijah Barnett RN - 05/19/2019 11:[address] Harris here and spoke to family. Questions answered. NEL MAN * Perioperative Nursing Note - Rickey Booker RN - 05/19/2019 8:51 AM CHANNEL MAN SIX SPECIMEN TAKEN TO PATHOLOGY BY DR. HARRIS NEL MAN * Brief Op Note - Ama Carpenter MD - 05/19/2019 8:02 AM CST Operative Progress Note Surgical Team: Surgeon(s) and Role: * Jasper Harris MD - Primary * Myrtle Haji MD - Resident - Observing * Ama Carpenter MD - Resident - Observing Anesthesiologist: Ishan Pitts MD Conference Reservationist: Adalid Almonte MD Roll Setter: Alexander Sanabria RN; Mp Wakefield RN Scrub: Chi Ordonez RN Roll Setter Second: Rickey Booker RN DATE OF SURGERY : 05/19/2019 Preoperative Diagnosis: Pre-op Diagnosis * Lung nodule [R91.1] Postoperative Diagnosis: Post-op Diagnosis * Lung nodule [R91.1] Procedure(s): Procedure(s) (LRB): MEDIASTINOSCOPY CERVICAL (N/A) Operative Findings: Nodes appear clinically positive at theresa (level 7) and sent for pathology 4R and 4L also sent 7B crushed cells suspicious for neuroendocrine tumir Estimated Blood Loss: <5ml Intraoperative Fluids: 700 mls Specimens: ID Type Source Tests Collected by Time 1 : MEDIASTINAL FLUID Fluid Mediastinum (Cytology) CYTOLOGY Jasper Harris MD 05/19/2019 0833 A : LYMPH NODE, 4R Tissue Lymph Node, Single excision SURGICAL PATHOLOGY Jasper Harris MD 05/19/2019 0816 B : LYMPH NODE, sTATION 7 Tissue Lymph Node, Single excision SURGICAL PATHOLOGY Jasper Harris MD 05/19/2019 0821 C : LYMPH NODE, STATION 7B Tissue Lymph Node, Single excision SURGICAL PATHOLOGY Jasper Harris MD 05/19/2019 0826 D : LYMPH NODE, 4RB Tissue Lymph Node, Single excision SURGICAL PATHOLOGY Jasper Harris MD 05/19/2019 0844 E : LYMPH NODE, STATION 7C Tissue Lymph Node, Single excision SURGICAL PATHOLOGY Jasper Harris MD 05/19/2019 0847 Implants: Nothing was implanted during the procedure Blood/Blood Products Transfused: 0 mls Complications: None Condition on Discharge from the operating room was stable Ama Carpenter MD Date: 05/19/2019 Time: 9:01 AM TEACHING ATTESTATION : I was present and directly participated in the entire procedure (including opening and closing). Cosigned by Jasper Harris MD at 05/19/2019 9:50 AM CHANNEL MAN NEL MAN NEL MAN NEL MAN * Perioperative Nursing Note - Carisa Leon RN - 05/19/2019 7:01 AM CST Pt arrived to pre-op, changed into gown. Placed on monitor. IV started, fluids infusing per order. H&P completed & signed by attending. Consents complete. Pt resting, awaiting OR. Will monitor. 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 Operative Procedure Cervical mediastinoscopy. Surgeon Jasper Harris MD Life Enrichment Manager Ama Carpenter MD Anesthesia General. Clinical Note This patient had presented with a lobulated lesion in the medial aspect of the right lower lobe. The lesion had radiographic features suggestive of a non-small cell carcinoma. The patient had an enlarged lymph node in the subcarinal space. The patient underwent endoscopic ultrasound-guided biopsy which confirmed a diagnosis of neuroendocrine carcinoma. However, on review of the specimens by our own pathology team, they concluded that the specimen was inadequate for specific histology. Therefore, we recommended the patient undergo cervical mediastinoscopy. Operative Procedure The patient was brought to the operating room, anesthetized. A single-lumen tube was placed. Patient was positioned supine with the shoulders elevated, neck extended. A transverse incision was made just above the suprasternal notch. The platysma was divided. The strap muscles were divided in the midline. The pretracheal fascia was entered. Blunt dissection of the mediastinum revealed no obvious evidence of lymphadenopathy. The mediastinoscope was inserted. This examination was somewhat difficult because of the patient's large body habitus. Nonetheless, we were able to expose the subcarinal space. A small normal- appearing subcarinal lymph node was removed and submitted for pathologic examination. This enabled exposure of a large firm adherent lymph node in the subcarinal space. We were unable to extract the node intact because of its adherence to the medial wall of the right main bronchus. Multiple biopsies were obtained for frozen section examination for tissue banking and for permanent section. An additional cytologic specimen was obtained from the subcarinal lymph node bed. Frozen section examination confirmed a diagnosis of neuroendocrine carcinoma. Hemostasis was achieved. A single station 4R lymph node was also sampled and submitted for pathologic examination. The wound was closed in layers with Vicryl. Dermabond dressing applied. The patient was then awakened, extubated, and transferred to the recovery room in stable condition. I was present throughout this entire operative procedure and there were no complications noted. Job ID/VF Job ID: [id number] NEL MAN documented in this encounter Plan of Treatment Not on file documented as of this encounter Procedures Procedure Name Priority Date/Time Associated Diagnosis Comments CYTOLOGY Routine 05/19/2019 8:33 AM CHANNEL MAN Lung nodule SURGICAL PATHOLOGY Routine 05/19/2019 8: 16 AM CHANNEL MAN Lung nodule MEDIASTINOSCOPY 05/19/2019 7:27 AM CHANNEL MAN Lung nodule documented in this encounter Results * Cytology (05/19/2019 8:33 AM CHANNEL MAN) Fluid (Mediastinum (Cytology)) 05/19/2019 8:33 AM CHANNEL MAN Comment:MEDIASTINAL FLUID Narrative PATHOLOGY [facility] - 05/25/2019 1:42 PM CDT EPIC results best viewed via link to PDF [facility] Ama Stark Laboratory of Surgical Pathology [facility] [place] [address] CYTOPATHOLOGY REPORT FINAL Patient Name: ?? MP KULKARNI Gender: ??M : ??1965 (Age: 54) Address: ??[address] [place] [address] ??[address] Hospital #: ??[id number] Taken:05/19/2019 Received:05/19/2019 Reported: 05/25/2019 Patient Type: [facility] SDS ?? Service: Surgery Location: [facility] Physician(s): ??Tara Ayers PA FINAL DIAGNOSIS A. ??Mediastinal fluid: ? - Rare atypical cells with crush artifact, consistent with involvement by a neuroendocrine neoplasm (see comment) ?? Comments Monolayer preparations and the cell block show rare atypical epithelioid cells with prominent crush artifact. ??Five single antibody immunostain procedures with appropriate staining controls were performed on the cell block material. ??These show the atypical cells to be positive for CAM 5.2, synaptophysin, and chromogranin. ??CD45 highlights background lymphocytes. ??A Ki-67 index of proliferation is difficult to interpret due to the background lymphocytes and scant tumor volume, however it appears to highlight roughly 5-10% of the atypical cell nuclei. Please refer to the current resection specimen ([id number]) for further characterization. ?? rcwp/05/25/2019 10:17 By this signature, I attest that the above diagnosis is based upon my personal examination of the slides(and/or other material indicated in the diagnosis). Ian Cornejo, DO Report Electronically Reviewed and Signed Out By ??Ian Cornejo DO 05/25/2019 13:42:26 Luca Marie, BERNARDINO(ASCP) Gross Description A. ??Mediastinal fluid: ??15 ml bloody fluid - 1 Pap stained ThinPrep, 1 Pap stained cytospin, 1 Diff-Quik stained cytospin, and cell block. ??(vc) ?? Clinical Diagnosis and History The patient is a 54 year old man with a lung nodule. REPORT IMAGES AND SCANNED DOCUMENTS, IF INCLUDED, ONLY VIEWABLE IN PDF VERSION OF REPORT The performance characteristics of some immunohistochemical stains, in-situ hybridization and fluorescence in-situ hybridization tests and immunophenotyping by flow cytometry cited in this report (if any) were determined by the Surgical Pathology Department at [facility] as part of an ongoing research quality assurance specialist program and in compliance with federally mandated [...] determined by the Surgical Pathology Department of [facility]. ??It has not been cleared or approved by the U. S. Food and Drug Administration. Jasper Harris MD LAB CYTOLOGY ORDERABLES F inal Result Performing Organization Address City/State/[facility] Co de Phone Number PATHOLOGY [facility] [address] [place], [place] [phone] * Surgical pathology (05/19/2019 8:16 AM CHANNEL MAN) Tissue (Lymph Node, Single excision) 05/19/2019 8:16 AM CHANNEL MAN Tissue (Lymph Node, Single excision) 05/19/2019 8:21 AM CHANNEL MAN Tissue (Lymph Node, Single excision) 05/19/2019 8:26 AM CHANNEL MAN Tissue (Lymph Node, Single excision) 05/19/2019 8:44 AM CHANNEL MAN Tissue (Lymph Node, Single excision) 05/19/2019 8:47 AM CHANNEL MAN Narrative PATHOLOGY [facility] - 05/25/2019 3:46 PM CDT EPIC results best viewed via link to PDF [facility] Ama Stark Laboratory [place] [address] SURGICAL PATHOLOGY REPORT FINAL Patient Name: ?? MP KULKARNI Gender: ??M : ??1965 (Age: 54) Address: ??[address] [place] [address] ??[address] Hospital #: ??[id number] Taken:05/19/2019 Received:05/19/2019 Reported: 05/25/2019 Patient Type: [facility] SDS ?? Service: Surgery Location: [facility] Physician(s): ??Tara Ayers PA Diagnosis: A. ??Lymph node, level 4R, excision ? - No evidence of malignancy in one lymph node (0/1) B. ??Lymph node, station 7, excision ? - No evidence of malignancy in one lymph node (0/1) C. ??Lymph node, station 7 B, excision (including CFR1) ? - Metastatic neuroendocrine carcinoma with low to intermediate grade features (1/) - See comment D. ??Lymph node, level 4R B, excision ? - No evidence of malignancy in one lymph node (0/1) E. ??Lymph node, station 7 C, excision ? 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 - See comment sxr/05/25/2019 13:29 By this signature, I attest that the above diagnosis is based upon my personal examination of the slides(and/or other material indicated in the diagnosis). Jerry Weiss MD Report Electronically Reviewed and Signed Out By ??Jerry Weiss MD 05/25/2019 15:46:17 Intraoperative Consultation: Gross intraoperative consult: Part C: Brought to the frozen section area is a lymph node, station 7 B consisting of multiple fragments of mendoza pink tissue measuring 3 x 2 x 0.5 cm in aggregate. ??Discussed with surgeon and he only wanted a small portion frozen. ??Greeting Card Maker fragments frozen as CFR1. ??Rest for permanent. ??Tissue taken for tissue banking. By Hoda Hollingsworth MD, PhD. Frozen section diagnosis: CFR1: Lymph node, station 7B ? -Crushed cells suspicious for neuroendocrine tumor, by Hoda Hollingsworth MD, PhD, Jose Daniel Escoto MD PhD, Miroslava Denise M.D. Miroslava Denise MD Microscopic Description and Comment: Microscopic examination substantiates the above cited diagnosis. Excisional biopsies on parts C and E show presence of metastatic malignant cells with neuroendocrine features. ??Some of the tumor cells are sheets or trabecular patterns, while other portions of the biopsies demonstrate scattered clusters of tumor cells embedded in dense fibrotic stroma. ??The tumor cells feature a relatively abundant amount of eosinophilic granular cytoplasm. ??There is some nuclear atypia, but overall the N: C ratio is relatively low, unlike the very high N:C ratio typical of small cell neuroendocrine carcinoma. ??There is freezing artifact;, as well as some crush and/or cautery artifact in these biopsies. ??Nonetheless we do not appreciate significant mitotic activity, although a rigorous mitotic count is difficult to perform due to the artifact. ??We also do not appreciate tumor necrosis. In order to further verify the nature of this neoplasm, we performed a panel of immunohistochemical stains on parts C and E) (seven single antibody procedures with appropriate controls). ??Stains on part C show that tumor cells are diffusely and strongly positive for synaptophysin and CD56 with some relatively strong positive staining for cytokeratin CAM5.2, it should be noted that the CAM 5.2 stain highlights a significant amount of cytoplasm in the tumor cells, in contrast to the dot-like cytokeratin positivity one typically sees with small cell carcinoma. ??In addition, the very strong synaptophysin and CD56 staining is not typical for small cell carcinoma, and again suggest a lower grade tumor. The tumor cells are negative for the squamous marker p40, the adenocarcinoma and small cell marker TTF-1 and are also negative for cytokeratin 7. ??Additionally, cytokeratin CAM 5.2 highlights similar tumor in the part E biopsy. ?? Overall, given the histology, as well as immunostain results, I am confident that this is not a small cell carcinoma, and the tumor also seems to lack the high- grade features of a large cell neuroendocrine carcinoma. 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 ??It should be remembered that even typical carcinoid can metastasize to lymph nodes in up to 5% of cases; the rate is significantly higher with atypical carcinoid. ??Nonetheless, both carcinoid an atypical carcinoid are usually treated with surgery including lymph node dissection to remove clinically positive disease, if possible. In addition to the metastatic neuroendocrine tumor in the part E biopsy, there were also some noncaseating granulomas. ??GMS and AFB histochemical stains are negative for fungal and acid fast organisms. ?? Permanent sections confirm the frozen section diagnoses. Patric Claire MD History: The patient is a 54-year-old man with a lung nodule and enlarged mediastinal lymph nodes. ??There has been a previous outside diagnosis which suggested small cell carcinoma. ??Our in situ review of the case ([id number]) was positive for a neuroendocrine neoplasm with relatively scant cellularity that precluded a definitive diagnosis/grading of the tumor.. ??Operative procedure: Cervical mediastinoscopy. Specimen(s) Received: A: Lymph node 4R B: Lymph node station 7 C: Lymph node station 7B D: Lymph node 4RB E: Lymph node station 7C Gross Description: The specimens are received in five formalin filled containers each labeled with the patient's name. ? A. ??The first container is additionally labeled lymph node, 4R and consists of one irregularly shaped fragment of soft, yellow-mendoza fatty tissue measuring 1.0 x 0.6 x 0.3 cm. ??Labeled A1. ??Jar 0. B. ??The second container is additionally labeled lymph node, station seven and consists of three irregularly shaped fragments of soft, mendoza-pink tissue measuring 0.9 x 0.7 x 2.3 cm in aggregate. ??Wrapped. ??Labeled B1. ??Jar 0. C. ??The third container is additionally labeled lymph node, station 7B and consists of a cassette labeled CFR1 containing multiple fragments of soft, pink-mendoza tissue measuring 1.3 x 0.7 x 0.3 cm in aggregate. ??Also received are multiple free floating fragments of soft, pink-mendoza tissue measuring 2.7 x 2.5 x 0.3 cm in aggregate. ??Labeled Cfr1 - remnant of frozen section; C2 to C3 - remainder of specimen, filtered. ??Jar 0. D. ??The fourth container is additionally labeled lymph node, 4RB and consists of two floating fragments of soft, mendoza-anderson tissue measuring 1.0 x 0.4 x 0.3 cm in aggregate. ??Labeled D1. ??Jar 0. E. ??The fifth container is additionally labeled lymph node, station 7C and consists of multiple irregularly shaped fragments of soft, pink white to pink anderson tissue measuring 1.5x 0.9 x 0.3 cm in aggregate. ??Filtered. ??Labeled E1. ??Jar 0. mr05/19/2019 11:45 PA(s): Deb Hernandez, MS, PA (ASCP) By this signature, I attest that the above diagnosis is based upon my personal examination of the slides(and/or other material). The performance characteristics of some immunohistochemical stains, fluorescence in-situ hybridization tests and immunophenotyping by flow cytometry cited in this report (if any) were determined by the Surgical Pathology Department at [facility] as part of an ongoing research quality assurance specialist program and in compliance with federally mandated [...] determined by the Surgical Pathology Department of [facility]. ??It has not been cleared or approved by the U. S. Food and Drug Administration. IMAGES AND SCANNED DOCUMENTS, IF INCLUDED, ONLY VIEWABLE IN PDF VERSION OF REPORT Jasper Harris MD LAB PATHOLOGY ORDERABLES Final Result PATHOLOGY [facility] [address] [place], [place] [phone] documented in this encounter Visit Diagnoses Diagnosis Lung nodule- Primary Other diseases of lung, not elsewhere classified documented in this encounter Admitting Diagnoses Diagnosis Lung nodule Other diseases of lung, not elsewhere classified documented in this encounter Administered Medications Inactive Administered Medications - up to 3 most recent administrations Medication Order MAR Action Action Date Dose Rate Site heparin 5,000 unit/mL injection 5,000 Units 5,000 Units, subcutaneous, Once, On Priscila 05/19/19 at 0645, For 1 dose, Pre-Op, Indications: Deep Vein Thrombosis PreventionIndications: Deep Vein Thrombosis Prevention Given 05/19/2019 6:21 AM CHANNEL MAN 5,000 Units Left Lower Abdomen Lactated Ringer's (LR) infusion 30 mL/hr, intravenous, Continuous, Starting on Priscila 05/19/19 at 0645, Pre-Op New Bag 05/19/2019 7:27 AM CHANNEL MAN New Bag 05/19/2019 6:20 AM CHANNEL MAN 30 mL/hr 30 mL/hr documented in this encounter Active and Recently Administered Medications Times are shown in CHANNEL MAN. Scheduled Medication Order 05/17/2019 05/18/2019 05/19/2019 acetaminophen (TYLENOL) tablet 1,000 mg 1,000 mg, oral, Once, On Priscila 05/19/19 at 1015, For 1 dose, Phase I, When able to tolerate PO., Indications: Pain 1015 (Due) heparin 5,000 unit/mL injection 5,000 Units (COMPLETED) 5,000 Units, subcutaneous, Once, On Priscila 05/19/19 at 0645, For 1 dose, Pre-Op, Indications: Deep Vein Thrombosis Prevention 0621 (Given - Provid er: Carisa Leon RN) Continuous Medication Order 05/17/2019 05/18/2019 05/19/2019 Lactated Ringer's (LR) infusion (CANCELED) 30 mL/hr, intravenous, Continuous, Starting on Priscila 05/19/19 at 0645, Pre-Op 0620 (New Bag - Prov ider: Carisa Leon RN)0727 (New Bag - Provider: Adalid Almonte MD) PRN Medication Order 05/17/2019 05/18/2019 05/19/2019 bupivacaine-EPINEPHrine (MARCAINE with EPI) 0.5 %-1:200,000 preservative free injection (CANCELED) As needed, Starting on Priscila 05/19/19 at 0717, Intra-Op 0717 (Canceled Entry - Provider: Jasper Harris MD)0858 (Given - Provider: Jasper Harris MD) dexMEDEtomidine (PRECEDEX) injection (CANCELED) As needed, Starting on Priscila 05/19/19 at 0717, Intra-Op 0717 (Given - Provid er: Jasper Harris MD) fentaNYL (SUBLIMAZE) preservative free injection 50 mcg 50 mcg, intravenous, Once as needed, breakthrough pain, Starting on Priscila 05/19/19 at 0933, For 1 dose, Phase I, Administer for uncontrolled or increasing pain while in PACU only. Then proceed to PACU 1st line analgesic., Indications: Pain HYDROmorphone (DILAUDID) injection 0.2 mg 0.2 mg, intravenous, Administer over 2 Minutes, Every 10 min PRN, 1st line for pain, Starting on Priscila 05/19/19 at 0933, Phase I, Switch to 2nd line analgesic order if pain is uncontrolled or increasing after 2 doses. Notify Anesthesiologist if total PACU dose reaches 2 mg and pain score 5/10 or more., Indications: Pain HYDROmorphone (DILAUDID) injection 0.4 mg 0.4 mg, intravenous, Administer over 2 Minutes, Every 10 min PRN, 2nd line for pain, Starting on Priscila 05/19/19 at 0933, Phase I, May administer 10 mintes after 2nd dose of 1st line analgesic agent for uncontrolled or increasing pain. Revert to 1st line dose if POSS of 3. Notify Anesthesiologist if total PACU dose reaches 2 mg and pain score 5/10 or more., Indications: Pain naloxone (NARCAN) 0.4 mg/mL injection 0.04-0.4 mg 0.04-0.4 mg, intravenous, Once as needed, other, excessive sedation/respiratory depression, Starting on Priscila 05/19/19 at 0933, For 1 dose, Phase I, Dilute 0.4 [...] Once as needed, nausea, vomiting, Starting on Priscila 05/19/19 at 0933, For 1 dose, Phase I, Proceed to prochlorperazine if ondansetron has been given within the last 6 hours. oxyCODONE (ROXICODONE) tablet 5 mg 5 mg, oral, Once as needed, 1st line for pain, Starting on Priscila 05/19/19 at 0933, For 1 dose, Phase I, When able to tolerate PO. May repeat in 1 hour if pain is uncontrolled or increasing after 1st dose., Indications: Pain prochlorperazine (COMPAZINE) injection 10 mg 10 mg, intravenous, Administer over 2 Minutes, Once as needed, nausea, vomiting, Starting on Priscila 05/19/19 at 0933, For 1 dose, Phase I, If nausea/vomiting not relieved by ondansetron within 30 minutes or if ondansetron has been given within the last 6 hours. documented in this encounter Orders Medications Ordered That Vikram ht Not Have Been Administered Count Last Ordered Date First Ordered Date acetaminophen (TYLENOL) tablet 1,000 mg 1 0 05/19/2019 bupivacaine-EPINEPHrine (MAR CORTNEY with EPI) 0.5 %-1:200,000 preservative free injection 1 05/19/2019 dexMEDEtomidine (PRECEDEX) injection 1 07/2019 fentaNYL (SUBLIMAZE) preserv ative free injection 50 mcg 1 05/19/2019 HYDROmorphone (DILAUDID) injection 0.2 mg 1 05/19/2019 HYDROmorphone (DILAUDID) injection 0.4 mg 1 05/19/2019 naloxone (NARCAN) 0.4 mg/mL injection 0.04-0.4 mg 1 05/19/2019 ondansetron (ZOFRAN) injection 4 mg 1 05/18 oxyCODONE (ROXICODONE) tablet 5 mg 1 2019 prochlorperazine (COMPAZINE) injection 10 mg 1 05/19/2019 sodium chloride 0.9% flush 0.5-20 mL 1 07/2019 documented in this encounter Care Teams Clinic Lpn Relationship Specialty Start Date End Date Clara Stanley PA [address] [place] [address] PCP - General Nurse Practitioner 04/05/19 Jasper Harris MD [address] [place] [address] Surgeon Thoracic Surgery 05/11/19 Alexis Lopez MD [address] [address] Transportation Equipment Painter Pulmonary Disease 05/11/19 Kip Del Rio MD [address] [facility] [address] [place] [address] Medical Oncologist/Demonstrator Knitting Hematology and Oncology 05/11/19 documented as of this encounter
--- OUTSIDE RECORDS SUMMARY | 2024-03-02 03:48 | XMS_ITS | Encounter Summary ---
Author Organization [facility] Healthcare Address [address] [place] [address] Care Team Providers Care Cold Strip Feeder Name Role Phone Clara Stanley Primary Care Provider + Jasper Harris MD Unavailable Alexis Lopez MD Unavailable Kip Del Rio MD Unavailable [phone] Encounter Details Date Type Department Care Team (Late st Contact Info) Description 05/19/2019 7:30 AM SUPERVISOR VENEER - 05/19/2019 9:45 AM SUPERVISOR VENEER Surgery [facility] Operating Room [address] [place] [address] Jasper Harris MD [id number] [place], [place] [id number] MEDIASTINOSCOPY CERVICAL Surgery Details Date/Time Status Location OR Service Patient Class Case Class Case Type Trauma Case? 05/19/2019 7:30 AM Posted [facility] OR POD 3 304 Cardiothoracic Outpatient Elective Panel 1 Procedure LRB Anes Op Region Wound Class Comments MEDIASTINOSCOPY CERVICAL N/A General Chest Class II - Clean Contaminated Surgeon Surgeon Role Service Panel Jasper Harris MD Primary Cardiothoracic 1 Myrtle Haji MD Resident - Observing General Surgery 1 Ama Carpenter MD Resident - Observing General S urgery 1 documented in this encounter Social History Tobacco Use Types Packs/Day Years Used Date Smoking Tobacco: Never Smokeless Tobacco: Never Alcohol Use Standard Drinks/Week Comments Yes 0 (1 standard drink = 0.6 oz pur e alcohol) social Sex and Gender Information Value Date Recorded Sex Assigned at Not on file 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VENEER Gender Identity Not on file Sexual Orientation Straight 09/22/2019 8: 21 PM CDT documented as of this encounter Last Filed Vital Signs Vital Sign Reading Time Taken Comments Blood Pressure 118/62 05/19/2019 9:40 AM SUPERVISOR VENEER Pulse 72 05/19/2019 9:45 AM SUPERVISOR VENEER Temperature 36.4 ??C (97.5 ??F) 05/19/2019 9:30 AM CS T Respiratory Rate 16 05/19/2019 9:45 AM SUPERVISOR VENEER Oxygen Saturation 97% 05/19/2019 9:45 AM SUPERVISOR VENEER Inhaled Oxygen Concentration - - Weight - - Height - - Body Mass Index - - documented in this encounter Discharge Instructions * Discharge Instructions* Khadijah Barnett RN - 05/19/2019 10:21 AM SUPERVISOR VENEER Pulmonary Nodules WHAT YOU NEED TO KNOW: [...] healthcare provider will refer you to a sociology teacher. Your sociology teacher will monitor your nodules for any change [...] before you use these products. ?? 2017 [employer] Information is for End User's use only and may not be sold, redistributed or otherwise used for commercial purposes. All illustrations and images included in CareNotes?? are the copyrighted property of [employer]. or [employer]. The above information is an laundry aide only. It is not intended as medical advice for individual conditions or treatments. Talk to your doctor, nurse or pharmacist before following any medical regimen to see if it is safe and effective for you. Dr. Harris will speak with the patient about follow up before he leaves RVISOR VENEER * Attachments The following attachments cannot be sent through Care Everywhere. * Mediastinoscopy (Discharge Care) (Barbadian) documented in this encounter Medications at Time [...] an acceptable riskfor : Procedure(s): MEDIASTINOSCOPY CERVICAL RVISOR VENEER Source Note - Elisabeth Kellogg NP - 2019 1:16 PM SUPERVISOR VENEER Images from the original note were not included. Center for Preoperative Assessment and Planning Preoperative Evaluation Record Evaluation type/location: [facility] Planned procedure site: [facility] (Pods 2/3/5/FLIGHT CONTROL MANAGER) Date: 05/13/19 Anesthesia Evaluation Mp Kulkarni is [...] and grade I/ Negative for peripheral edema (Willacy LSB) Pulmonary Exam: LCTA, bilat EENT Exam: [...] Total Score: 4 Enzo index score: 100 RVISOR VENEER RVISOR VENEER documented in this encounter Miscellaneous Notes * Perioperative Nursing Note - Khadijah Barnett RN - 05/19/2019 11:[address] Harris here and spoke to family. Questions answered. RVISOR VENEER * Perioperative Nursing Note - Rickey Booker RN - 05/19/2019 8:51 AM SUPERVISOR VENEER SIX SPECIMEN TAKEN TO PATHOLOGY BY DR. HARRIS RVISOR VENEER * Brief Op Note - Ama Carpenter MD - 05/19/2019 8:02 AM CST Operative Progress Note Surgical Team: Surgeon(s) and Role: * Jasper Harris MD - Primary * Myrtle Haji MD - Resident - Observing * Ama Carpenter MD - Resident - Observing Anesthesiologist: Ishan Pitts MD Purler: Adalid Almonte MD [employer] Social Worker: Alexander Sanabria RN; Mp Wakefield RN Scrub: Chi Ordonez RN Elementary [employer] Social Worker Second: Rickey Booker RN DATE OF SURGERY [...] Jasper Harris MD at 05/19/2019 9:50 AM SUPERVISOR VENEER RVISOR VENEER RVISOR VENEER RVISOR VENEER * Perioperative Nursing Note - Carisa Leon RN - 05/19/2019 7:01 AM CST Pt arrived to pre-op, changed into gown. Placed on monitor. IV started, fluids infusing per order. H&P completed & signed by attending. Consents complete. Pt resting, awaiting OR. Will monitor. 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 Operative Procedure Cervical mediastinoscopy. Surgeon Jasper Harris MD Voice Network Administrator Ama Carpenter MD Anesthesia General. Clinical Note [...] no complications noted. Job ID/VF Job ID: [id number] RVISOR VENEER documented in this encounter Plan of Treatment Not on file documented as of this encounter Procedures Procedure Name Priority Date/Time Associated Diagnosis Comments CYTOLOGY Routine 05/19/2019 8:33 AM SUPERVISOR VENEER Lung nodule SURGICAL PATHOLOGY Routine 05/19/2019 8: 16 AM SUPERVISOR VENEER Lung nodule MEDIASTINOSCOPY 05/19/2019 7:27 AM SUPERVISOR VENEER Lung nodule documented in this encounter Results * Cytology (05/19/2019 8:33 AM SUPERVISOR VENEER) Fluid (Mediastinum (Cytology)) 05/19/2019 8:33 AM SUPERVISOR VENEER Comment:MEDIASTINAL FLUID Narrative PATHOLOGY [facility] - 05/25/2019 1:42 PM CDT EPIC results best viewed via link to PDF [facility] Ama Stark [facility] of [place] [address] CYTOPATHOLOGY REPORT FINAL Patient Name: ?? MP KULKARNI Gender: ??M : ??1965 (Age: 54) Address: ??[address] [place] [address] ??[id number] Hospital #: ??[id number] Taken:05/19/2019 Received:05/19/2019 Reported: 05/25/2019 Patient Type: [facility] SDS ?? Service: Surgery Location: [facility] Physician(s): ??Tara Ayers PA FINAL DIAGNOSIS A. [...] Please refer to the current resection specimen ([id number]) for further characterization. ?? rcwp/05/25/2019 10:17 By this signature, I attest that the above diagnosis is based upon my personal examination of the slides(and/or other material indicated in the diagnosis). Ian Cornejo, DO Report Electronically Reviewed and Signed Out By ??Ian Cornejo DO 05/25/2019 13:42:26 BERNARDINO Maza(ASCP) Gross Description A. ??Mediastinal fluid: ??15 ml [...] determined by the Surgical Pathology Department at [facility] as part of an ongoing quality systems manager program and in compliance with federally mandated [...] determined by the Surgical Pathology Department of [facility]. ??It has not been cleared or approved by the U. S. Food and Drug Administration. Jasper Harris MD LAB CYTOLOGY ORDERABLES F inal Result PATHOLOGY [facility] 3rd Floor [place], [place] [phone] * Surgical pathology (05/19/2019 8:16 AM SUPERVISOR VENEER) Tissue (Lymph Node, Single excision) 05/19/2019 8:16 AM SUPERVISOR VENEER Tissue (Lymph Node, Single excision) 05/19/2019 8:21 AM SUPERVISOR VENEER Tissue (Lymph Node, Single excision) 05/19/2019 8:26 AM SUPERVISOR VENEER Tissue (Lymph Node, Single excision) 05/19/2019 8:44 AM SUPERVISOR VENEER Tissue (Lymph Node, Single excision) 05/19/2019 8:47 AM SUPERVISOR VENEER Narrative PATHOLOGY [facility] - 05/25/2019 3:46 PM CDT EPIC results best viewed via link to PDF [facility] Ama Stark [facility] [place] [address] SURGICAL PATHOLOGY REPORT FINAL Patient Name: ?? MP KULKARNI Gender: ??M : ??1965 (Age: 54) Address: ??[address], [place], [place] ??[address] Hospital #: ??[id number] Taken:05/19/2019 Received:05/19/2019 Reported: 05/25/2019 Patient Type: [facility] SDS ?? Service: Surgery Location: [facility] Physician(s): ??Tara Ayers PA Diagnosis: A. ??Lymph node, level 4R, excision ? - No evidence of malignancy in one lymph node (0/1) B. ??Lymph node, station 7, excision ? - No evidence of malignancy in one lymph node (0/1) C. ??Lymph node, station 7 B, excision (including CFR1) ? 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 ??Lymph node, level 4R B, excision ? - No evidence of malignancy in one lymph node (0/1) E. ??Lymph node, station 7 C, excision ? 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 - See comment [...] he only wanted a small portion frozen. ??Exhibits Manager fragments frozen as CFR1. ??Rest for permanent. [...] ??Our in situ review of the case ([id number]) was positive for a neuroendocrine neoplasm with [...] E1. ??Jar 0. mr05/19/2019 11:45 PA(s): Deb Hernandez MS, PA (ASCP) By this signature, I attest that the above diagnosis is based upon my personal examination of the slides(and/or other material). The performance characteristics of some immunohistochemical stains, fluorescence in-situ hybridization tests and immunophenotyping by flow cytometry cited in this report (if any) were determined by the Surgical Pathology Department at [facility] as part of an ongoing quality systems manager program and in compliance with federally mandated [...] determined by the Surgical Pathology Department of [facility]. ??It has not been cleared or approved by the U. S. Food and Drug Administration. IMAGES AND SCANNED DOCUMENTS, IF INCLUDED, ONLY VIEWABLE IN PDF VERSION OF REPORT Jasper Harris MD LAB PATHOLOGY ORDERABLES Final Result PATHOLOGY [facility] 3rd Floor [place], [place] [phone] documented in this encounter Visit Diagnoses Diagnosis [...] MAR Action Action Date Dose Rate Site bupivacaine-EPINEPHrine (MARCAINE with EPI) 0.5 %-1:200,000 preservative free injection As needed, Starting on Priscila 05/19/19 at 0717, Intra-Op Given 05/19/2019 8:58 AM SUPERVISOR VENEER 10 mL Surgical Site dexMEDEtomidine (PRECEDEX) injection As needed, Starting on Priscila 05/19/19 at 0717, Intra-Op Given 05/19/2019 7:17 AM SUPERVISOR VENEER 100 mcg Surgical Site heparin 5,000 unit/mL injection 5,000 Units 5,000 Units, subcutaneous, Once, On Priscila 05/19/19 at 0645, For 1 dose, Pre-Op, Indications: Deep Vein Thrombosis PreventionIndications:D eep Vein Thrombosis Prevention Given 05/19/2019 6:21 AM SUPERVISOR VENEER 5,000 Units Left Lower Abdomen Lactated Ringer's (LR) infusion 30 mL/hr, intravenous, Continuous, Starting on Priscila 05/19/19 at 0645, Pre-Op New Bag 05/19/2019 7:27 AM SUPERVISOR VENEER New Bag 05/19/2019 6:20 AM SUPERVISOR VENEER 30 mL/hr 30 mL/hr documented in this encounter Active and Recently Administered Medications Times are shown in SUPERVISOR VENEER. Scheduled Medication Order 05/17/2019 05/18/2019 05/19/2019 acetaminophen [...] 30 mL/hr, intravenous, Continuous, Starting on Priscila 3/5/20 at 0645, Pre-Op 0620 (New Bag - [...] (TYLENOL) tablet 1,000 mg 1 0 05/19/2019 fentaNYL (SUBLIMAZE) preserv ative free injection 50 [...] 07/2019 documented in this encounter Care Teams Cold Strip Feeder Relationship Specialty Start Date End Date Clara Stanley PA [address] [place] [id number] PCP - General Nurse Practitioner 04/05/19 Jasper Harris MD [address] [place] [address] Surgeon Thoracic Surgery 05/11/19 Alexis Lopez MD [address] [address] Director Surface Transportation Pulmonary Disease 05/11/19 Kip Del Rio MD [address] [facility] [address] [place] [address] Medical Oncologist/Manager Strategic Marketing Hematology and Oncology 05/11/19 documented as of this encounter
--- OUTSIDE RECORDS SUMMARY | 2024-03-02 03:48 | XMS_ITS | Encounter Summary ---
Author Organization [facility] Healthcare Address [address] [place] [address] Care Team Providers Care Social Worker Health Services Name Role Phone Clara Stanley Primary Care Provider + Jasper Canchola MD Unavailable Alexis Lopez MD Unavailable [phone] Kip Del Rio MD Unavailable [phone] Encounter Details Date Type Department Care Team (Latest Contact Info) Description 05/12/2019 2:57 PM SPOUT POSITIONER - 05/12/2019 11:59 PM SPOUT POSITIONER Hospital Encounter [facility] [address] [place] [address] Discharge Disposition: Discharge to home or self care Social History Tobacco Use Types Packs/Day Years Used Date Smoking Tobacco: Never Smokeless Tobacco: Never Sex and Gender Information Value Date Recorded Sex Assigned at Not on file Legal Sex Male 1:17 AM SPOUT POSITIONER Gender Identity Not on file Sexual Orientation [...] NEURO CT MR OUTSIDE REFERENCE Routine 05/12/2019 2:57 PM SPOUT POSITIONER Diagnosis unknown documented in this encounter Results * Neuro CT MR Outside Reference (05/12/2019 2:57 PM SPOUT POSITIONER) Impressions RAD_PACS[facility] - 05/12/2019 2:57 PM SPOUT POSITIONER These images are for Reference purposes only and have not been reviewed by [facility] Radiology. ??There will be no report generated by a [facility] Radiologist. Narrative [facility] - 05/12/2019 2:57 PM SPOUT POSITIONER EXAMINATION: ??Images For Reference Purposes Only us Kip Del Rio MD IMG CT PROCEDURES Final Re sult [facility] documented in this encounter Visit Diagnoses Not on filedocumented in this encounter Care Teams Social Worker Health Services Relationship Specialty Start Date End Date Clara Stanley PA [address] [place] [address] PCP - General Nurse Practitioner 04/05/19 Jasper Canchola MD [facility] [place] [address] Surgeon Thoracic Surgery 05/11/19 Alexis Lopez MD [address] [facility] [address] [address] Equipment Lead Pulmonary Disease 05/11/19 Kip Del Rio MD [address] [facility] [address] [place] [address] Medical Oncologist/Steward/Stewardess Second Hematology and Oncology 05/11/19 documented as of this encounter
--- OUTSIDE RECORDS SUMMARY | 2024-03-02 03:48 | XMS_ITS | Encounter Summary ---
Author Organization [facility] Address [address] [facility] [address] [place] [address] Phone Care Team Providers Care Recreational Resort Manager Name Role Phone Clara Stanley Primary Care Provider + Jasper Canchola MD Unavailable [phone] Alexis Lopez MD Unavailable [phone] Kip Del Rio MD Unavailable [phone] Reason for Referral * Consultation (Routine) - Closed Specialty Diagnoses / Procedures Referred By Erik galdamez Referred To Contact Radiation Oncology Diagnoses Primary cancer of right lower lobe of lung (HCC) Kip Del Rio MD [address] [facility] [address] [place] [address] Phone: tel: fax: Violette Willis MD [address] [facility] [address] [place] [address] Phone: tel: fax: Referral ID Status Reason Start Date Expiration Date V isits Requested Visits Authorized [id number] Closed Specialty Services Required 05/12/2019 11/20/2020 1 1 Question Answer Is this referral for Breast Health Multi-Disciplinary Clinic? No Please select the performing region: [facility] [[id number]] Please select the performing department: [facility] CAM RAD ONC [] To provider: VIOLETTE WILLIS [[id number]] # of visits: 1 Comments Newly diagnosed small cell lung cancer. Consult either 05/22, 05/23, or 05/24. Please call him with the appointment. TECH * Diagnostic Imaging (Routine) - Closed Specialty Diagnoses / Procedures Referred By Erik galdamez Referred To Contact Radiology Diagnoses Primary cancer of right lower lobe of lung (HCC) Procedures MRI Brain W WO Contrast Kip Del Rio MD [address] [facility] [address] [place] [address] Phone: tel: fax: [facility] [address] [place] [address] Referral ID Status Reason Start Date Expiration Date Visits Re quested Visits Authorized [id number] Closed 05/12/2019 08/10/2019 1 1 TECH Reason for Visit * Consultation (Routine) - Closed Specialty Diagnoses / Procedures Referred By Erik galdamez Referred To Contact Oncology Diagnoses Right lower lobe pulmonary nodule Alexis Lopez MD [address] [place] [address] Phone: tel: fax: Kip Del Rio MD [address] [facility] [address] [place] [address] Phone: tel: fax: Referral ID Status Reason Start Date Expiration Date V isits Requested Visits Authorized [id number] Closed Specialty Services Required 05/10/2019 11/18/2020 1 1 Encounter Details Date Type Department Care Team (Late st Contact Info) Description 05/12/2019 8:00 AM EP TECH Office Visit [facility] [address] [place] [address] 7th [place] [address] [place] [address] Kip Del Rio MD [address] [facility] [address] [place] [address] Primary cancer of right lower lobe of lung (CMS/HCC) (Primary Dx); Right lower lobe pulmonary nodule Social History Tobacco Use Types Packs/Day Years Used Date Smoking Tobacco: Never Smokeless Tobacco: Never Tobacco Cessation:Counseling Given: No Sex and Gender Information Value Date Recorded Sex Assigned at Not on file Legal Sex Male 1:17 AM EP TECH Gender Identity Not on file Sexual Orientation Straight 09/22/2019 8: 21 PM CDT documented as of this encounter Last Filed Vital Signs Vital Sign Reading Time Taken Comments Blood Pressure 146/77 05/12/2019 8:03 AM EP TECH Pulse 76 05/12/2019 8:03 AM EP TECH Temperature 36.8 ??C (98.2 ??F) 05/12/2019 8:03 AM CS T Respiratory Rate 16 05/12/2019 8:03 AM EP TECH Oxygen Saturation 99% 05/12/2019 8:03 AM EP TECH Inhaled Oxygen Concentration - - Weight 157.4 kg (347 lb) 05/12/2019 8:03 AM EP TECH Height 190.5 cm (6' 3 ) 05/12/2019 8:03 AM EP TECH Body Mass Index 43.37 05/12/2019 8:03 AM EP TECH documented in this encounter Ordered Prescriptions Prescription Sig Dispense Quantity Refills Last Filled Start Date End Date LORazepam (ATIVAN) 0.5 mg tablet Take 1 tablet (0.5 mg total) by mouth nightly as needed for anxiety 30 tablet 3 05/12/2019 0 documented in this encounter Progress Notes * Kelechi Benitez MD PhD - 05/12/2019 8:00 AM CST Images from the original note were not included. 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 History from Today's Visit Mr. 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 Briefly, he was seen in February for headaches at which time a CT brain was performed at [facility] as was a Brain MRI angiogram on 03/24/19 and he was diagnosed with idiopathic intracranial hypertension with a subsequent lumbar puncture and diuretics. In mid-to-late March, he developed abdominal pain and subsequent imaging with a CT of the chest identified an indeterminate right lower lobe nodule measuring 1.5 x 1.6 cm which was subsequently FDG-Avid (SUV 3 .3) on a PET/CT scan performed on 05/03/19 as was a subcarinal LN with calcifications that measured 1.9 x 1.8 cm with SUV max of 7.3. Dr. Cooley, a char filter operator helper, performed an EBUS with FNA biopsy on 05/06/[address] which revealed high-grade neuroendocrine carcinoma. Of note, the brain MRI on 03/24/19, did not reveal any evidence of intracranial malignancy. Today, Mr. Kulkarni presents to discuss his diagnosis and treatment options moving forward. Today, he notes that he is doing well since starting the diamox and has no complaints other than being slightly anxious about the diagnosis. He denies fevers, chills, nausea, vomiting. He denies shortness of breath, cough, dyspnea on exertion. He denies problems with balance or vision changes. He notes that his headaches from February have completely resolved. He was able to walk into clinic today without shortness of breath. PAST MEDICAL HISTORY: 1.) Idiopathic intracranial hypertension PAST SURGICAL HISTORY: 1.) Appendectomy (Age 14) 2. Tonsillectomy (Unsure of age, but as a child) SOCIAL HISTORY: He lives in [place], [place]. He is is to Anna Kulkarni and they have three children all of whom live in the area. 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 He is a never smoker. He notes rare alcohol intake and denies recreational drug use. FAMILY HISTORY: Family History Problem Relation Age of Onset ??? Cancer Mother ??? Heart disease Father ??? Cancer Father ??? Cancer Sister His sister who is a care home smoker was recently diagnosed with lung cancer and is receiving post-operative chemotherapy currently. ALLERGIES: Allergies as of 05/12/2019 ??? (No Known Allergies) Patient's Medications New Prescriptions No medications on file Previous Medications ACETAZOLAMIDE ER (DIAMOX SEQUAL) 500 MG CAPSULE Take 500 mg by mouth 2 (two) times a day AMLODIPINE (NORVASC) 10 MG TABLET CETIRIZINE (ZYRTEC) 10 MG TABLET Take 10 mg by mouth daily OMEPRAZOLE (PRILOSEC) 40 MG CAPSULE Take 40 mg by mouth 2 times daily PRAVASTATIN (PRAVACHOL) 20 MG TABLET SUCRALFATE (CARAFATE) 1 GRAM TABLET TK 1 T PO BEFORE MEALS AND AT BEDTIME Modified Medications No medications on file Discontinued Medications No medications on file Review of Systems All other systems are negative except as reviewed in the HPI. Performance Status: ECOG 0 Physical Exam Vitals BP 146/77 (BP Location: Left arm) Pulse 76 Temp 36.8 ??C (98.2 ??F) (Oral) Resp 16 Ht 190.5 cm (6' 3 ) Wt (!) 157.4 kg (347 lb) SpO2 99% BMI 43.37 kg/m?? General: alert and oriented pleasant, obese man in no acute distress. HEENT: nc/at, PERRL, EOMI, sclera anicteric, moist mucous membrane, oropharynx clear with no exudates. Neck: supple with no lymphadenopathy. Heart: RRR with no murmurs, rubs or gallops. Lungs: Clear to auscultation bilaterally with no wheezing, rales or rhonchi. Abd: non-distended, soft, non-tender, no hepatosplenomegaly, bowel sounds normoactive. Ext: warm and well perfused with no clubbing cyanosis or edema. Lymphatics: No submandibular, cervical, supraclavicular, axillary or inguinal lymphadenopathy. Neuro: A&Ox4, motor/sensory grossly intact. Psych:normal affect, judgement and insight appropriate within context of encounter. Imaging Reviewed Today CT Scan performed at [facility] on 04/22/19 IMPRESSION: 1. Indeterminate 1.3 cm lung nodule, right lower lobe, unchanged. 2. Gynecomastia. 3. Sub-6 mm lung nodules, right middle lobe, unchanged. ?? PET/CT 05/03/19 at [facility] IMPRESSION: ?? 1. Mildly FDG-avid right lower lobe nodule; given enhancement on recent CT compared to noncontrast CT performed with the PET/CT, this could represent neuroendocrine carcinoma in light of subcarinal lymph node cytology result. Hypermetabolic enlarged subcarinal lymph node consistent with pathology proven high-grade neuroendocrine carcinoma. No other sites of hypermetabolic metastatic disease. 2. Mildly hypermetabolic subcutaneous nodule in the anterior pelvic wall which could be inflammatory but remains indeterminate and can be better evaluated with physical examination. MRI angio of the brain 03/24/2019 at [facility] ?? IMPRESSION: 1. No evidence of acute cerebral infarction. 2. No large arterial occlusions or significant stenoses identified in the head. 3. No evidence of dural sinus thrombosis. Pathology Results EBUS-guided FNA from 05/06/19: Subcarinal lymph node, EBUS-guided guided FNA: - MALIGNANT - Direct smears from the first pass show numerous dispersed stripped malignant nuclei with neuroendocrine chromatin and a few aggregated intact malignant cells. ??The cell block includes similar cells, along with several fragments of calcified cartilage. 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 ??TTF-1 immunostain is negative. ??Controls stain appropriately. Laboratory results On 04/09/19: CBC was wnl with WBC of 10.8, Hgb of 14.2, and Plt of 302. A CMP was also wnl with a Crof 0.86. Albumin of 4.2. AST/ALT of 19/31. TBili of 0.5. ASSESSMENT and PLAN: Mr. Kulkarni is a 53 y.o. gentleman who presents to discuss treatment options for his recently diagnosed presumed limited stage small cell lung cancer ([id number]). His ECOG performance status is 1. We reviewed his imaging findings and presumed diagnosis. However, given the fact that he is a neversmoker and their is some question to the diagnosis obtained by FNA, we recommend sending cell-free DNA genetic testing from his blood (inivata) as well as obtain a biopsy via mediastinoscopy under the care of Dr. Canchola with whom we spoke with in clinic today. If this is limited stage small cell lung cancer, we discussed that we would still be proceeding with the intent to cure and we reviewed standard of care treatment which consists of cisplatin, etoposide with concurrent RT and depending on his response possibly radiation to the brain. We also discussed the clinical trial LU005 which is evaluating the addition of the anti-PDL1 antibody, atezolizumabin combination with chemoRT backbone.We briefly discussed side effects including, but not limited to, nausea, vomiting, hair loss, neuropathy, myelosuppression, neutropenic fever, mouth sores, severediarrhea, inflammation of the lung and potential inflammation of literally any organ in the body. Today, we will obtain the following: Brain MRI, cell-free DNA testing via inivata and will have himmeet with Dr. Canchola for evaluation of mediastinoscopy with biopsy. We will also have him schedule an appointment with radiation oncology to begin planning for definitive chemoRT. He will return in 2 weeks to discuss the results of the above testing and consults. Given his anxiety regarding the diagnosis and insomnia, we will prescribe him lorazepam 0.5 mg QHS for 30 days and will reassess once we initiate therapy. We instructed the patient to call with any acute problems or questions. He agrees with this plan and knows to contact our office if any new or worsening symptoms develop in the interim. Kelechi Benitez MD, PhD Clinical Fellow, PGY5 Divisions of Hematology and Oncology The history, findings, diagnoses and treatment plan that I have documented were reviewed with staffphysician at the time of this visit. The staff physician agrees that my assessment, plan and services provided are appropriate. Cosigned by Kip Del Rio MD at 05/12/2019 5:02 PM EP TECH TECH TECH Associated attestation - Kip Del Rio MD - 05/12/2019 5:02 PM EP TECH I have seen and examined Mr. Kwaku Kulkarni 05/12/[address] Kelechi Benitez. I agree with the history, physical examination, assessment and plan. documented in this encounter Plan of Treatment Scheduled Referrals Name Type Priority Associated Diagnoses Order Schedule Ambulatory referral to Radiation Oncology Outpatient Referral Routine Primary cancer of right lower lobe of lung (CMS/HCC) Expected: 05/20/2019 (Approximate), Expires: 05/12/2020 documented as of this encounter Results * MRI Brain W WO Contrast (05/20/2019 3:11 PM EP TECH) Anatomical Region Laterality Modality Head and Neck N/A Magnetic Resonan ce 05/20/2019 3:38 PM EP TECH Impressions 05/20/2019 4:17 PM EP TECH 1. ??No enhancing brain parenchymal lesions identified. [...] it. Electronically signed by: Wayne Vazquez M.D. Narrative 05/20/2019 4:17 PM EP TECH EXAMINATION: Magnetic resonance imaging (MRI) of the [...] Wayne Vazquez M.D. Kip Del Rio MD [facility] MRI PROCEDURES Final R esult documented in this encounter Visit Diagnoses Diagnosis Primary cancer of right lower lobe of lung (HCC)- Primary Right lower lobe pulmonary nodule Primary cancer of right lower lobe of lung (HCC) documented in this encounter Discontinued Medications Medication Sig Discontinue Reason Start Date End Da te ranitidine (ZANTAC) 150 mg capsule Take 150 mg by mouth 2 (two) times a day 04/01/2019 05/12/2019 sucralfate (CARAFATE) 1 gram tablet TK 1 T PO BEFORE MEALS AND AT BEDTIME 04/12/2019 05/12/2019 documented as of this encounter Historical Medications * This list may reflect changes made after this encounter. dicyclomine (BENTYL) 20 mg tablet Take 20 mg by mouth every 6 (six) hours 04/09/2019 2019 ranitidine (ZANTAC) 150 mg capsule Take 150 mg by mouth 2 (two) times a day 04/01/2019 05/12/2019 added in this encounter Orders Outpatient Referral Count Last Ordered Date Fir st Ordered Date AMB REFERRAL TO ONCOLOGY 1 05/12/2019 documented in this encounter Care Teams Recreational Resort Manager Relationship Specialty Start Date End Date Clara Stanley PA [address] [place] [address] PCP - General Nurse Practitioner 04/05/19 Jasper Canchola MD [address] [place] [address] Surgeon Thoracic Surgery 05/11/19 Alexis Lopez MD [address] [address] Heel Varnisher Pulmonary Disease 05/11/19 Kip Del Rio MD [address] [facility] [address] [place] [address] Medical Oncologist/Gum Dipper Hematology and Oncology 05/11/19 documented as of this encounter
--- OUTSIDE RECORDS SUMMARY | 2024-03-02 03:48 | XMS_ITS | Encounter Summary ---
Author Organization [facility] Address [address] [place] [address] Phone Care Team Providers Care Placement Secretary Name Role Phone Clara Stanley Primary Care Provider + Jasper Canchola MD Unavailable [phone] Alexis Lopez MD Unavailable [phone] iKp Del Rio MD Unavailable [phone] Encounter Details Date Type Department Care Team (Late st Contact [facility]) Description 05/12/2019 Orders Only [facility] Oncology [address] [facility] 7th [place] [address] [place] [address] Adele Becerra MA 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) Social History Tobacco Use Types Packs/Day Years Used Date Smoking Tobacco: Never Smokeless Tobacco: Never Sex and Gender Information Value Date Recorded Sex Assigned at Not on file Legal Sex Male 1:17 AM TYPE CASTER Gender Identity Not on file Sexual Orientation Straight 09/22/2019 8: 21 PM CDT documented as of this encounter Plan of Treatment Not on file documented as of this encounter Visit Diagnoses Diagnosis 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)- Primary Malignant poorly differentiated neuroendocrine carcinoma, any site documented in this encounter Care Teams Placement Secretary Relationship Specialty Start Date End Date Clara Stanley PA [address] [place] [address] PCP - General Nurse Practitioner 04/05/19 Jasper Canchola MD [address] [place] [address] Surgeon Thoracic Surgery 05/11/19 Alexis Lopez MD [address] [address] Line And Frame Poler Pulmonary Disease 05/11/19 [place] [address] [place] [address] [address] [place] [address] Medical Oncologist/Patient Consumer Marketer Hematology and Oncology 05/11/19 documented as of this encounter
--- OUTSIDE RECORDS SUMMARY | 2024-03-02 03:48 | XMS_ITS | Encounter Summary ---
Author Organization [facility] Address [address] [place] [address] Care Team Providers Care Fish Packer Name Role Phone Clara Stanley Primary Care Provider + Jasper Canchola MD Unavailable Alexis Lopez MD Unavailable [phone] Kip Del Rio MD Unavailable [phone] Encounter Details Date Type Department Care Team (Latest Contact Info) Description 05/11/2019 1:46 PM PEDODONTIST Hospital Encounter [facility] [address] [place] [address] Discharge Disposition: Discharge to home or self care Social History Tobacco Use Types Packs/Day Years Used Date Smoking Tobacco: Never Smokeless Tobacco: Never Sex and Gender Information Value Date Recorded Sex Assigned at Not on file Legal Sex Male 1:17 AM PEDODONTIST Gender Identity Not on file Sexual Orientation [...] Name Priority Date/Time Associated Diagnosis Comments CT BODY OUTSIDE REFERENCE Routine 05/11/2019 1:46 PM PEDODONTIST Diagnosis unknown documented in this encounter Results * CT Body Outside Reference (05/11/2019 1:46 PM PEDODONTIST) Impressions [facility] - 05/11/2019 1:46 PM PEDODONTIST These images are for Reference purposes only and have not been reviewed by [facility] Radiology. ??There will be no report generated by a [facility] Radiologist. Narrative [facility] - 05/11/2019 1:46 PM PEDODONTIST EXAMINATION: ??Images For Reference Purposes Only us Kip Del Rio MD IMG CT PROCEDURES Final Re sult [facility] documented in this encounter Visit Diagnoses Not on filedocumented in this encounter Care Teams Fish Packer Relationship Specialty Start Date End Date Clara Stanley PA [address] [place] [address] [phone] (Work) PCP - General Nurse Practitioner 04/05/19 Jasper Canchola MD [address] [place] [address] Surgeon Thoracic Surgery 05/11/19 Alexis Lopez MD [address] [address] Director On Air Pulmonary Disease 05/11/19 [place] [address] [place] [address] [place] [address] Medical Oncologist/Engineering Coordinator Hematology and Oncology 05/11/19 documented as of this encounter
--- OUTSIDE RECORDS SUMMARY | 2024-03-02 03:48 | XMS_ITS | Encounter Summary ---
Author Organization [facility] Address [address] [place] [address] Care Team Providers Care Marketing Reporting Analyst Name Role Phone Clara Stanley Primary Care Provider + Jasper Canchola MD Unavailable Alexis Lopez MD Unavailable [phone] Kip Del Rio MD Unavailable Jacob Flynn MD Unavailable Reason for Visit * Consultation (Routine) - Closed Specialty Diagnoses / Procedures Referred By Erik [email or web address] Referred To Contact Radiation Oncology Diagnoses Primary cancer of right lower lobe of lung (HCC) Kip Del Rio MD [address] [facility] [address] [place] [address] Phone: tel: fax: Jacob Flynn MD [address] [facility] [address] [place] [address] Phone: tel: fax: Referral ID Status Reason Start Date Expiration Date V isits Requested Visits Authorized [id number] Closed Specialty Services Required 05/12/2019 11/20/2020 1 1 Encounter Details Date Type Department Care Team (Late st Contact Info) Description 05/25/2019 11:00 AM CDT Consult [facility] Radiation Oncology [address] [place] [address] Advanced Medicine [place] [phone] Kip Del Rio MD [address] [facility] [address] [place] [address] Jacob Flynn MD [address] [facility] [address] [place] [address] Primary cancer of right lower lobe of lung (CMS/HCC) Social History Tobacco Use Types Packs/Day Years Used Date Smoking Tobacco: Never Smokeless Tobacco: Never Alcohol Use Standard Drinks/Week Comments Yes 0 (1 standard drink = 0.6 oz pur e alcohol) social Sex and Gender Information Value Date Recorded Sex Assigned at Not on file Legal Sex Male 1:17 AM PROCESS ANALYST Gender Identity Not on file Sexual Orientation Straight 09/22/2019 8: 21 PM CDT documented as of this encounter Last Filed Vital Signs Vital Sign Reading Time Taken Comments Blood Pressure 138/84 05/25/2019 12:26 PM CDT Pulse 80 05/25/2019 12:26 PM CDT Temperature 36.7 ??C (98 ??F) 05/25/2019 12: 26 PM CDT Respiratory Rate 18 05/25/2019 12:2 6 PM CDT Oxygen Saturation - - Inhaled Oxygen Concentration - - Weight 156.2 kg (344 lb 4.8 oz) 020 12:26 PM CDT Height 190.5 cm (6' 3 ) 05/25/2019 12:2 6 PM CDT Body Mass Index 43.03 05/25/2019 12:26 PM CDT documented in this encounter Consult Notes * Shelby Velasquez MD PhD - 05/25/2019 11:00 AM CDT RADIATION ONCOLOGY CONSULT NOTE PATIENT NAME: Kwaku Kulkarni DATE OF : 1965 DATE OF SERVICE: 05/25/2019 ATTENDING RADIATION ONCOLOGIST: Jacob Flynn MD REFERRING PHYSICIAN: Kip Del Rio MD Cancer Staging Carcinoid tumor of right lung Staging form: Lung, AJCC 8th Edition - Clinical: Stage IIIA (cT1c, cN2, cM0) - Unsigned IDENTIFYING DATA: Kwaku Kulkarni is a 54 y.o. male with a diagnosis of low- grade neuroendocrine carcinoma, pT1cN2, of the RLL. He presents today for discussion of treatment options. 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 He is seen today at Dr Del Rio's request for discussion of treatment options. He initially presented for recurrent headache in February 2019. He underwent CT brain and MRI angiogram on 03/24/2019, without notable intracranial abnormalities. He was subsequently diagnosed with idiopathic intracranial hypertension.Therapeutic LP and initiation of acetazolamide, lead to symptomatic relief. Later that month, he developed post-prandial abdominal pain. During work-up a CT CAP incidentally revealed a right lower lobe nodule, 1.5 x 1.6 cm. FDG PET/CT on 05/03/2019 demonstrated avidity of this RLL lesion (SUV max 3.3), as well as subcarinal adenopathy, measuring 1.9 x 1.8 cm (SUV max 7.3). He was evaluated by Dr Cooley on 05/06/2019, with EBUS and biopsy revealing neuroendocrine carcinoma. The pathology specimen was reviewed at [facility], confirming neuroendocrine neoplasm. Mediastinoscopy on 05.19.[address] Canchola, with operative report noting nodes appeared clinically positive at theresa (level 7) and sent for pathology 4R and 4L. Final pathology demonstrated metastatic neuroendocrinecarcinoma with low to intermediate grade features in subcarinal lymph node, but no evidence of malignancy in 4R. Mediastinal fluid demonstrated rare atypical cells with crush artifact, consistent with neuroendocrine malignancy. MRI brain on 05/20/2019 was without intracranial disease. There are PFTs pending. Today, he reports doing well overall. He denies any further headache since starting acetazolamide. No fevers/chills, nausea/vomiting, diarrhea. He denies respiratory symptoms, denies cough, SOB, PEARCE,hemoptysis. His appetite and energy level are good. PAST MEDICAL HISTORY PRIOR CANCER: None AUTOIMMUNE DISORDER: None CONNECTIVE TISSUE DISORDER: None IMMUNOSUPPRESSION: None Past Medical History: Diagnosis Date ??? IIH (idiopathic intracranial hypertension) PAST SURGICAL HISTORY Past Surgical History: Procedure Laterality Date ??? APPENDECTOMY ??? COLONOSCOPY ??? TONSILLECTOMY FAMILY HISTORY Family History Problem Relation Age of Onset ??? Cancer Mother ??? Heart disease Father ??? Cancer Father ??? Cancer Sister ??? Anesthesia problems Neg Hx He reports his sister was recently diagnosed with a lung cancer treated with surgery and now receiving post operative chemotherapy. She was also a lifelong non smoker. SOCIAL HISTORY Social History Socioeconomic History ??? Marital status: [...] Sexual Activity ??? Alcohol use: Yes Comment: social ??? Drug use: Never ??? Sexual activity: Not on file Lifestyle ??? Physical activity Days per week: [...] Social History Narrative ??? Not on file ALLERGIES: No Known Allergies MEDICATIONS: Current Outpatient Medications: ??? acetaZOLAMIDE ER (DIAMOX SEQUAL) 500 mg capsule, Take 500 mg by mouth 2 (two) times a day , Disp: , Rfl: ??? amLODIPine (NORVASC) 10 mg tablet, Take 10 mg by mouth every morning , Disp: , Rfl: ??? cetirizine (ZyrTEC) 10 mg tablet, Take 10 mg by mouth every morning , Disp: , Rfl: ??? cyclobenzaprine (FLEXERIL) 10 mg tablet, Take 10 mg by mouth 3 (three) times a day as needed, Disp: , Rfl: ??? HYDROcodone-acetaminophen 2.5-325 mg tablet, Take 1 tablet by mouth every 4 (four) hours, Disp:10 tablet, Rfl: 0 ??? LORazepam (ATIVAN) 0.5 mg tablet, Take 0.5 mg by mouth every 6 (six) hours as needed for anxiety, Disp: , Rfl: ??? pravastatin (PRAVACHOL) 20 mg tablet, Take 20 mg by mouth every morning , Disp: , Rfl: REVIEW OF SYSTEM Except for the symptoms described above, the remainder of the review of systems is negative. Specifically, except as noted, when asked the patient expressed no complaints relative to constitutional (fever, weight loss), eyes, ears, nose, mouth, throat, neurologic, cardiovascular, pulmonary, GI, ,skin, musculoskeletal, endocrine, hematologic/lymphatic, or immunologic systems. The KPS scale today is 100, Fully active, able to carry on all pre-disease performed without restriction (ECOG equivalent 0) PAST RADIATION HISTORY: None IMPLANTED DEVICES: Nonw INTENT OF THERAPY: Definitive PAIN ASSESSMENT: Pain Score and Location 05/25/19 1226 PainSc: 3 PHYSICAL EXAMINATION: BP 138/84 Pulse 80 Temp 36.7 ??C (98 ??F) Resp 18 Ht 190.5 cm (6' 3 ) Wt (!) 156.2 kg (344 lb 4.8 oz) BMI 43.03 kg/m?? Physical Exam Constitutional: He is oriented to person, place, and time. He appears well- developed and well-nourished. No distress. HENT: Head: Normocephalic and atraumatic. Eyes: Pupils are equal, round, and reactive to light. Conjunctivae and EOM are normal. Neck: Normal range of motion. Neck supple. Pulmonary/Chest: Effort normal. No respiratory distress. Abdominal: He exhibits no distension. Musculoskeletal: Normal range of motion. General: No edema. Neurological: He is alert and oriented to person, place, and time. No cranial nerve deficit. Skin: Skin is warm and dry. Psychiatric: He has a normal mood and affect. Judgment normal. DIAGNOSTIC REPORTS REVIEWED: ?? Radiographic Imaging: As discussed in HPI ?? 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 We discussed that lung neuroendocrine (bronchial carcinoid) tumors are a rare group of pulmonary neoplasms that are often characterized by indolent clinical behavior. At one end of the spectrum are the typical carcinoids, which are well-differentiated, low-grade, slowly growing neoplasms that seldom metastasize to extrathoracic structures. At the other end of the spectrum are the poorly differentiated and high-grade neuroendocrine carcinomas, as typified by small cell lung cancer,which behaves aggressively, with rapid tumor growth and early distant dissemination. We discussed that for patients with either a low- or intermediate-grade lung neuroendocrine tumors whose medical condition and pulmonary reserve will tolerate it, we recommend surgical resection, and mediastinal lymph node sampling or dissection. We reviewed that there is no consensus regarding the benefit of adjuvant therapy; however, radiation with or without chemotherapy can be considered for patients with histologically aggressive-appearing, stage III, intermediate- grade, of if gross residual disease remains after surgery. All questions were answered to the patient???s satisfaction. We will discuss with Medical Oncology and Thoracic surgery. The patient was encouraged to contact our office with any questions or concerns that might arise at any time. ACTION ITEMS ?? Discuss definitive surgery with Dr Del Rio and Sushant RAD ONC PAIN PLAN: The patient is not currently having any pain that requires changes in pain management. Shelby Velasquez MD PhD PGY-3, Department of Radiation Oncology Cosigned by Jacob Flynn MD at 05/25/2019 10:22 PM CDT Associated attestation - Jacob Flynn MD - 05/25/2019 10:22 PM CDT I have seen and examined the patient. I agree with the findings and plan of care as documented in the resident/fellow's note. Kwaku Kulkarni has newly diagnosed neuroendocrine ca of the RLL withinvolvement of the subcarinal (7) station. Additional samples take via mediastinoscopy are preliminarily reported as low to intermediate grade consistent with typical vs. atypical carcinoid, but NOT high grade/small cell. As such, I feel that a surgical approach would be optimal if possible, as lowto intermediate grade neuroendocrine tumors are historically radiation resistant. Same was conveyedto the patient and his , and further communication with Dr. Canchola after the consultation indicates that he may take the patient for lobectomy tomorrow. Geovany Flynn MD Professor Director, Clinical Trials Chief, Thoracic Radiation Oncology and Stereotactic Body Radiotherapy Department of Radiation Oncology documented in this encounter Nursing Notes * Ayala Martinez RN - 05/25/2019 11:00 AM CDT Pt denies recent falls. Prefers midday tx appointments. documented in this encounter Plan of Treatment Not on file documented as of this encounter Visit Diagnoses Diagnosis Primary cancer of right lower lobe of lung (HCC) documented in this encounter Orders Outpatient Referral Count Last Ordered Date Fir st Ordered Date AMB REFERRAL TO RADIATION ONCOLOGY 1 2019 documented in this encounter Care Teams Marketing Reporting Analyst Relationship Specialty [place] [address] [place] [address] PCP - General Nurse Practitioner 04/05/19 Jasper Canchola MD [address] [place] [address] Surgeon Thoracic Surgery 05/11/19 Alexis Lopez MD [address] [facility] [address] [address] Applied Psychology Teacher Pulmonary Disease 05/11/19 Kip Del Rio MD [address] [facility] [address] [place] [address] Medical Oncologist/Manufacturing Cost Estimator Hematology and Oncology 05/11/19 Jacob Flynn MD [address] [facility] [address] [place] [address] Radiation Oncologist Radiation Oncology 05/25/19 documented as of this encounter
--- OUTSIDE RECORDS SUMMARY | 2024-03-02 03:48 | XMS_ITS | Encounter Summary ---
Author Organization [facility] Care Team Providers Care Cash Checker Name Role Phone Clara Stanley Primary Care Provider + Jasper Canchola MD Unavailable [phone] Alexis Lopez MD Unavailable [phone] Kip Del Rio MD Unavailable [phone] Encounter Details Date Type Department Care Team (Latest Contact Info) Description 05/12/2019 Travel Social History Tobacco Use Types Packs/Day Years Used Date Smoking Tobacco: Never Smokeless Tobacco: Never Sex and Gender Information Value Date Recorded Sex Assigned at Not on file Legal Sex Male 1:17 AM PUBLIC RELATIONS ACCOUNT EXECUTIVE Gender Identity Not on file Sexual Orientation Straight 09/22/2019 8: 21 PM CDT documented as of this encounter Plan of Treatment Not on file documented as of this encounter Visit Diagnoses Not on filedocumented in this encounter Care Teams Cash Checker Relationship Specialty Start Date End Date Clara Stanley PA [address] [place] [address] PCP - General Nurse Practitioner 04/05/19 Jasper Canchola MD [facility] [place] [address] Surgeon Thoracic Surgery 05/11/19 Alexis Lopez MD [address] [place] [address] Kinesiotherapist Pulmonary Disease 05/11/19 Kip Del Rio MD [address] [facility] [address] [place] [address] Medical Oncologist/Jira Administrator Hematology and Oncology 05/11/19 documented as of this encounter
--- OUTSIDE RECORDS SUMMARY | 2024-03-02 03:48 | XMS_ITS | Encounter Summary ---
Author Organization [facility] Address [address] [place] [address] Phone Care Team Providers Care Ship Purser Name Role Phone Clara Stanley Primary Care Provider + Jasper Canchola MD Unavailable [phone] Alexis Lopez MD Unavailable [phone] Kip Del Rio MD Unavailable [phone] Encounter Details Date Type Department Care Team (Late st Contact Info) Description 05/12/2019 1:10 PM DISTRICT SALES LEADER Office Visit [facility] [address] [place] [address] [place] Social History Tobacco Use Types Packs/Day Years Used Date Smoking Tobacco: Never Smokeless Tobacco: Never Sex and Gender Information Value Date Recorded Sex Assigned at Not on file Legal Sex Male 1:17 AM DISTRICT SALES LEADER Gender Identity Not on file Sexual Orientation Straight 09/22/2019 8: 21 PM CDT documented as of this encounter Plan of Treatment Not on file documented as of this encounter Procedures Procedure Name Priority Date/Time Associated Diagnosis Comments CYTOLOGY Routine 05/12/2019 12:00 AM DISTRICT SALES LEADER documented in this encounter Results * Cytology (05/12/2019 12:00 AM DISTRICT SALES LEADER) 05/12/2019 05/12/2019 12: 07 PM DISTRICT SALES LEADER Narrative 05/16/2019 10:09 AM DISTRICT SALES LEADER Results in EPIC best viewed via PDF link [facility] Pathology Consult Service [address] [place], [place] [id number] CYTOPATHOLOGY REPORT * Consult Report * FINAL Patient Name: ??KWAKU BULLOCK Address: ??[address] [place], [place] ??[address] Gender: ??M : ??1965 (Age: 54) ? Hospital #: ??[id number] Patient Type: ??WU Location: ??[facility] OUTREAC Taken: ??05/12/2019 Received: ??05/12/2019 Accessioned: ??2019 Reported: ??05/16/2019 Physician(s): ?? Jasper Canchola M.D. [facility] Department of Pathology [facility] [place] [address] P: [phone] F: [phone] ? Final Diagnosis Consult material received from [place], [place] ([id number]; 05/06/2019) Lymph node, subcarinal, fine needle aspiration: ? - Positive for neoplasm with neuroendocrine differentiation (see comment) ? - Poorly preserved specimen with scant cellularity precludes definitive diagnosis Comments Smears and the cell block are paucicellular and consist nearly exclusively of naked nuclei (degenerated tumor cells without intact cytoplasm). ??A thin background of finely granular material suggests the presence of necrosis. ??Immunostains performed by the referring institution show positivity for synaptophysin and chromogranin, indicating neuroendocrine differentiation. ??CK8/18 is positive in tumor cells; TTF1 is negative. The differential diagnosis includes a high grade neuroendocrine carcinoma (i.e. small cell carcinoma, large cell neuroendocrine carcinoma), poorly differentiated non- small cell carcinoma with neuroendocrine features, and atypical carcinoid. ??Rebiopsy is required for definitive diagnosis. [facility]/05/16/2019 09:57 By this signature, I attest that the above diagnosis is based upon my personal examination of the slides(and/or other material indicated in the diagnosis). Report Electronically Reviewed and Signed Out By Ian Cornejo DO 05/16/2019 10:09:44 ? Material Received Received from [facility], [facility], [place], [place] are seven slides labeled [id number]. The corresponding report is received. Selected slide(s) may be digitally scanned for our files, and all materials are returned to the referring institution, along with a copy of our final report. Gross Description A. ??Subcarinal lymph node, EBUS-guided FNA (OSC [id number]; 05/06/2019): 1 H&E cell block slide, 4 immunostained cell block slides, 2 smears (apm) ?? Clinical Diagnosis and History The patient is a 54 year old man with a right lower lobe pulmonary nodule and an enlarged subcarinal lymph node. Any testing required for diagnostic purposes was performed in the Department of Pathology and Immunology at [facility], [address] [place] [address] CLIA # [id number] The performance characteristics of the testing cited in this report (if any) were determined by the ??[facility] Department of Pathology and Immunology [facility], as part of an ongoing research quality assurance specialist program and in compliance with federally mandated regulations drawn from the Clinical Laboratory Improvement Act of 1988 (CLIA '88). ??Some of these tests rely on the use of analyte specific reagents (ASR) and are subject to specific labeling requirements by the US Food and Drug Administration. ??Such diagnostic tests may only be performed in a facility that is certified by the Department of Health and Human Services as a high complexity laboratory under CLIA '88. ??The FDA has determined that such clearance or approval is not necessary. ??ASRs should not be regarded as investigational or for research. ??ASRs were developed and the performance characteristics determined by the [facility], [facility] Department of Pathology and Immunology. ??It has not been cleared or approved by the U.S. Food and Drug Administration. ??Any test designated as LDT was developed and its performance characteristics determined by [facility]. It has not been cleared or approved by the FDA. This test is used for clinical purposes and should not be regarded as investigational or for research. Report images and/or scanned reports, if included, only viewable in PDF version of report. us Jasper Canchola MD LAB CYTOLOGY ORDERABLES F inal Result documented in this encounter Visit Diagnoses Not on filedocumented in this encounter Care Teams Ship Purser Relationship Specialty Start Date End Date Clara Stanley PA [address] [place] [address] PCP - General Nurse Practitioner 04/05/19 Jasper Canchola MD [address] [place] [address] Surgeon Thoracic Surgery 05/11/19 Alexis Lopez MD [address] [address] Motion Graphics Artist Pulmonary Disease 05/11/19 Kip Del Rio MD [address] [facility] [address] [place] [address] Medical Oncologist/Sales Associate Cashier Hematology and Oncology 05/11/19 documented as of this encounter
--- OUTSIDE RECORDS SUMMARY | 2024-03-02 03:48 | XMS_ITS | Encounter Summary ---
Author Organization [facility] Address [address] [place] [address] Care Team Providers Care Engineer Exhauster Name Role Phone Clara tSanley Primary Care Provider + Jasper Canchola MD Unavailable Alexis Lopez MD Unavailable [phone] Kip Del Rio MD Unavailable Encounter Details Date Type Department Care Team (Late st Contact Info) Description 05/12/2019 Telephone [facility] Advanced Medicine Radiation Oncology [address] [facility] [place] [address] Jacob Flynn MD [address] [facility] [address] [place] [address] Social History Tobacco Use Types Packs/Day Years Used Date Smoking Tobacco: Never Smokeless Tobacco: Never Sex and Gender Information Value Date Recorded Sex Assigned at Not on file Legal Sex Male 1:17 AM SOCIAL MEDIA DEVELOPER Gender Identity Not on file Sexual Orientation Straight 09/22/2019 8: 21 PM CDT documented as of this encounter Miscellaneous Notes * Telephone Encounter - Khadijah Almaguer - 05/12/2019 10:15 AM CST Called patient to discuss scheduling radiation oncology consultation per referral from medical oncologist Dr. Kip Del Rio. Left voicemail requesting return call to [phone] to schedule. [place] MEDIA DEVELOPER documented in this encounter Plan of Treatment Not on file documented as of this encounter Visit Diagnoses Not on filedocumented in this encounter Care Teams Engineer Exhauster Relationship Specialty Start Date End Date Clara Stanley PA [address] [place] [address] PCP - General Nurse Practitioner 04/05/19 Jasper Canchola MD [address] [place] [address] Surgeon Thoracic Surgery 05/11/19 Alexis Lopez MD [address] [address] Ice Cream Machine Operator Pulmonary Disease 05/11/19 Kip Del Rio MD [address] [facility] [address] [place] [address] Medical Oncologist/Growth Hacker Hematology and Oncology 05/11/19 documented as of this encounter
--- OUTSIDE RECORDS SUMMARY | 2024-03-02 03:48 | XMS_ITS | Encounter Summary ---
Author Organization [facility] Address [address] [place] [address] Phone Care Team Providers Care Candy Bar Attendant Name Role Phone Clara Stanley Primary Care Provider + Jasper Canchola MD Unavailable Alexis Lopez MD Unavailable Kip Del Rio MD Unavailable Jacob Flynn MD Unavailable Encounter Details Date Type Department Care Team (Late st Contact Info) Description 05/25/2019 Orders Only [facility] Pulmonary [address] [facility] Advanced Medicine 8th [place] [address] [place] [address] Britt Leroy RMA Social History Tobacco Use Types Packs/Day Years Used Date Smoking Tobacco: Never Smokeless Tobacco: Never Alcohol Use Standard Drinks/Week Comments Yes 0 (1 standard drink = 0.6 oz pur e alcohol) social Sex and Gender Information Value Date Recorded Sex Assigned at Not on file Legal Sex Male 1:17 AM RETAIL LOAN OFFICER Gender Identity Not on file Sexual [...] on filedocumented in this encounter Care Teams Candy Bar Attendant Relationship Specialty Start Date End Date Clara Stanley PA [address] [place] [address] PCP - General Nurse Practitioner 04/05/19 Jasper Canchola MD [address] [place] [address] Surgeon Thoracic Surgery 05/11/19 Alexis Lopez MD [address] [address] Supervisor Pleating Pulmonary Disease 05/11/19 Kip Del Rio MD [address] [facility] [address] [place] [address] Medical Oncologist/Deputy Sheriff Civil Division Hematology and Oncology 05/11/19 Jacob Flynn MD [address] [facility] [address] LL [address] [place] [address] Radiation Oncologist Radiation Oncology 05/25/19 documented as of this encounter
--- OUTSIDE RECORDS SUMMARY | 2024-03-02 03:48 | XMS_ITS | Encounter Summary ---
Author Organization [facility] Address [address] [facility] [address] [place] [address] Phone Care Team Providers Care Crown Ironer Operator Name Role Phone Clara Stanley Primary Care Provider + Jasper Canchola MD Unavailable Alexis Lopez MD Unavailable Kip Del Rio MD Unavailable Jacob Flynn MD Unavailable Encounter Details Date Type Department Care Team (Late st Contact Info) Description 05/25/2019 2:30 PM CDT Office Visit [facility] Surgery [address] [facility] Advanced Medicine 8th [place] [address] [place] [address] Jasper Canchola MD [address] [facility] [id number] [place] [address] Malignant neoplasm of lower lobe of right lung (CMS/HCC) (Primary Dx) Social History Tobacco Use Types Packs/Day Years Used Date Smoking Tobacco: Never Smokeless Tobacco: Never Alcohol Use Standard Drinks/Week Comments Yes 0 (1 standard drink = 0.6 oz pur e alcohol) social Sex and Gender Information Value Date Recorded Sex Assigned at Not on file Legal Sex Male 1:17 AM SCRAP KETTLE TENDER Gender Identity Not on file Sexual Orientation Straight 09/22/2019 8: 21 PM CDT COVID-19 Exposure Response Date Recorded In the last month, have you been in contact with someone who was confirmed or suspected to have Coronavirus / COVID-19? No / Unsure 05/26/2019 7:38 AM CDT documented as of this encounter Last Filed Vital Signs Vital Sign Reading Time Taken Comments Blood Pressure 128/88 05/25/2019 2:55 PM CDT Pulse 85 05/25/2019 2:55 PM CDT Temperature 36.8 ??C (98.2 ??F) 05/25/2019 2:55 PM CD T Respiratory Rate 18 05/25/2019 2:55 PM CDT Oxygen Saturation 99% 05/25/2019 2:55 PM CDT Inhaled Oxygen Concentration - - Weight 157.3 kg (346 lb 12.8 oz) 05/25/2019 2:55 PM CDT Height 190.5 cm (6' 3 ) 05/25/2019 2:55 PM CDT Body Mass Index 43.35 05/25/2019 2:55 PM CDT documented in this encounter Progress Notes * Jasper Canchola MD - 05/25/2019 2:30 PM CDT [facility] Thoracic Surgery Note 05/26/2019 KALPANA Lema 1965 Dear KALPANA Lema: I was pleased to see Kwaku Kulkarni in follow-up on 02/03/2020. As you may recall this patient had presented with a right lower lobe mass and enlarged subcarinal lymph nodes. 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 This did not fit with the clinical presentation of the patient. Therefore on May 18 the patient underwent cervical mediastinoscopy. 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 We therefore thought that resection was the appropriate option. I had a detailed discussion with the patient and his regarding the conduct of a right posterior lateral thoracotomy, right lower lobectomy and mediastinal lymph node dissection. They are fully informed and wish to proceed with this resection on May 25. Thank you very much. Yours sincerely, Sary Canchola MD Case Management Associate completed by using [employer] Fluency Direct speaking software, therefore, transcriptionvariances may occur. documented in this encounter Plan of Treatment Not on file documented as of this encounter Visit Diagnoses Diagnosis Malignant neoplasm of lower lobe of right lung (HCC)- Primary documented in this encounter Historical Medications * This list may reflect changes made after this encounter. cyclobenzaprine (FLEXERIL) 10 mg tablet Take 10 mg by mouth 3 (three) times a day as needed 05/12/2018 08/03/2019 added in this encounter Care Teams Crown Ironer Operator Relationship Specialty Start Date End Date Clara Stanley PA [address] [place] [address] PCP - General Nurse Practitioner 04/05/19 Jasper Canchola MD [address] [place] [address] Surgeon Thoracic Surgery 05/11/19 Alexis Lopez MD [address] [address] Gate Keeper Pulmonary Disease 05/11/19 Kip Del Rio MD [address] [facility] [address] [place] [address] Medical Oncologist/Grey Goods Marker Hematology and Oncology 05/11/19 Jacob Flynn MD [address] [facility] [address] [place] [address] Radiation Oncologist Radiation Oncology 05/25/19 documented as of this encounter
--- OUTSIDE RECORDS SUMMARY | 2024-03-02 03:48 | XMS_ITS | Encounter Summary ---
Author Organization [facility] Address [address] [place] [address] Phone Care Team Providers Care Pattern Mechanic Name Role Phone Clara Stanley Primary Care Provider + Jasper Canchola MD Unavailable [phone] Alexis Lopez MD Unavailable [phone] Kip Del Rio MD Unavailable [phone] Encounter Details Date Type Department Care Team (Late st Contact Info) Description 05/24/2019 Telephone [facility] Oncology [facility] 7th [place] [address] [place] [address] Imelda De Leon, KAMILA Social History Tobacco Use Types Packs/Day Years Used Date Smoking Tobacco: Never Smokeless Tobacco: Never Alcohol Use Standard Drinks/Week Comments Yes 0 (1 standard drink = 0.6 oz pur e alcohol) social Sex and Gender Information Value Date Recorded Sex Assigned at Not on file Legal Sex Male 1:17 AM HARD HAT DIVER Gender Identity Not on file Sexual Orientation Straight 09/22/2019 8: 21 PM CDT documented as of this encounter Miscellaneous Notes * Telephone Encounter - Imelda Simpson RN - 05/24/2019 11:45 AM CDT I called Mr. Kulkarni today and advised him that the brain MRI done on 05/20/19 did not show evidence of metastatic disease to his brain, per Dr. Del Rio. The pathology read from the biopsy with Dr. Canchola on 05/19/2019 is pending. He is scheduled to see Dr. Flynn on 05/25/[address] De lRio on05/26/19 to discuss his treatment plan. documented in this encounter Plan of Treatment Not on file documented as of this encounter Visit Diagnoses Not on filedocumented in this encounter Care Teams Pattern Mechanic Relationship Specialty Start Date End Date Clara Stanley PA [address] [place] [address] PCP - General Nurse Practitioner 04/05/19 Jasper Canchola MD [address] [place] [address] Surgeon Thoracic Surgery 05/11/19 Alexis Lopez MD [address] [address] Welding Machine Operator Electroslag Pulmonary Disease 05/11/19 Kip Del Rio MD 49[address] [facility] [address] [place] [address] Medical Oncologist/Textile Technologist Hematology and Oncology 05/11/19 documented as of this encounter
--- OUTSIDE RECORDS SUMMARY | 2024-03-02 03:48 | XMS_ITS | Encounter Summary ---
Author Organization [facility] Healthcare Address [address] [place] [address] Care Team Providers Care Landscaping And Groundskeeping Laborer Name Role Phone Clara Stanley Primary Care Provider + Jasper Canchola MD Unavailable Alexis Lopez MD Unavailable [phone] Kip Del Rio MD Unavailable Encounter Details Date Type Department Care Team (Latest Contact Info) Description 05/12/2019 2:56 PM HEAT TREATING OPERATOR Hospital Encounter [facility] Radiology [facility] [address] [place] [address] Discharge Disposition: Discharge to home or self care Social History Tobacco Use Types Packs/Day Years Used Date Smoking Tobacco: Never Smokeless Tobacco: Never Sex and Gender Information Value Date Recorded Sex Assigned at Not on file Legal Sex Male 1:17 AM HEAT TREATING OPERATOR Gender Identity Not on file Sexual [...] NEURO CT MR OUTSIDE REFERENCE Routine 05/12/2019 2:56 PM HEAT TREATING OPERATOR Diagnosis unknown documented in this encounter Results * Neuro CT MR Outside Reference (05/12/2019 2:56 PM HEAT TREATING OPERATOR) Impressions [facility] - 05/12/2019 2:56 PM HEAT TREATING OPERATOR These images are for Reference purposes only and have not been reviewed by [facility] Radiology. ??There will be no report generated by a [facility] Radiologist. Narrative [facility] - 05/12/2019 2:56 PM HEAT TREATING OPERATOR EXAMINATION: ??Images For Reference Purposes Only us Kip Del Rio MD IMG CT PROCEDURES Final Re sult [facility] documented in this encounter Visit Diagnoses Not on filedocumented in this encounter Care Teams Landscaping And Groundskeeping Laborer Relationship Specialty Start Date End Date Clara Stanley PA [address] [place] [address] PCP - General Nurse Practitioner 04/05/19 Jasper Canchola MD [address] [place] [address] Surgeon Thoracic Surgery 05/11/19 Alexis Lopez MD [address] [address] Cath Lab Nurse Pulmonary Disease 05/11/19 Kip Del Rio MD [address] [facility] [address] [place] [address] Medical Oncologist/Banana Carrier Hematology and Oncology 05/11/19 documented as of this encounter
--- OUTSIDE RECORDS SUMMARY | 2024-03-02 03:48 | XMS_ITS | Encounter Summary ---
Author Organization [facility] Care Team Providers Care Airfield Manager Name Role Phone Clara Stanley Primary Care Provider + Jasper Canchola MD Unavailable [phone] Alexis Lopez MD Unavailable [phone] Kip Del Rio MD Unavailable [phone] Encounter Details Date Type Department Care Team (Latest Contact Info) Description 05/19/2019 Travel Social History Tobacco Use Types Packs/Day Years Used Date Smoking Tobacco: Never Smokeless Tobacco: Never Alcohol Use Standard Drinks/Week Comments Yes 0 (1 standard drink = 0.6 oz pur e alcohol) social Sex and Gender Information Value Date Recorded Sex Assigned at Not on file Legal Sex Male 1:17 AM ACLS SPECIALIST Gender Identity Not on file Sexual Orientation Straight 09/22/2019 8: 21 PM CDT documented as of this encounter Plan of Treatment Not on file documented as of this encounter Visit Diagnoses Not on filedocumented in this encounter Care Teams Airfield Manager Relationship Specialty Start Date End Date Clara Stanley PA [address] [place] [address] PCP - General Nurse Practitioner 04/05/19 Jasper Canchola MD [address] [place] [phone] Surgeon Thoracic Surgery 05/11/19 Alexis Lopez MD [address] [facility] [address] [address] Fretted Instruments Inspector Pulmonary Disease 05/11/19 Kip Del Rio MD 49[address] [facility] [address] [place] [address] Medical Oncologist/Milk And Cream Grader Hematology and Oncology 05/11/19 documented as of this encounter
--- OUTSIDE RECORDS SUMMARY | 2024-03-02 03:48 | XMS_ITS | Encounter Summary ---
Author Organization [facility] Healthcare Address [address] [place] [address] Care Team Providers Care Billing Coordinator Name Role Phone Clara Stanley Primary Care Provider + Jasper Canchola MD Unavailable [phone] Alexis Lopez MD Unavailable Kip Del Rio MD Unavailable [phone] Encounter Details Date Type Department Care Team (Late st Contact Info) Description 05/16/2019 Telephone [facility] Advanced Medicine Radiation Oncology [address] [facility] Advanced Medicine [facility] [address] Jacob Flynn MD [address] [facility] [address] LL [address] [place] [address] Social History Tobacco Use Types Packs/Day Years Used Date Smoking Tobacco: Never Smokeless Tobacco: Never Alcohol Use Standard Drinks/Week Comments Yes 0 (1 standard drink = 0.6 oz pur e alcohol) social Sex and Gender Information Value Date Recorded Sex Assigned at Not on file Legal Sex Male 1:17 AM AUTO SERVICE REPRESENTATIVE Gender Identity Not on file Sexual Orientation Straight 09/22/2019 8: 21 PM CDT documented as of this encounter Miscellaneous Notes * Telephone Encounter - Khadijah Almaguer - 05/16/2019 10:13 AM CST Called patient again to discuss scheduling radiation oncology consultation per referral from medical oncologist Dr. Kip Del Rio. Left 2nd voicemail requesting return call to [phone] to schedule. SERVICE REPRESENTATIVE documented in this encounter Plan of Treatment Not on file documented as of this encounter Visit Diagnoses Not on filedocumented in this encounter Care Teams Billing Coordinator Relationship Specialty Start Date End Date Clara Stanley PA [address] [place] [address] PCP - General Nurse Practitioner 04/05/19 Jasper Canchola MD [address] [place] [phone] Surgeon Thoracic Surgery 05/11/19 Alexis Lopez MD [address] [address] Lag Screwer Pulmonary Disease 05/11/19 Kip Del Rio MD 49[address] [facility] [address] [place] [address] Medical Oncologist/Returns Processor Hematology and Oncology 05/11/19 documented as of this encounter
--- OUTSIDE RECORDS SUMMARY | 2024-03-02 03:48 | XMS_ITS | Encounter Summary ---
Author Organization [facility] Address [address] [place] [address] Phone Care Team Providers Care Conditioner Tumbler Operator Name Role Phone Clara Stanley Primary Care Provider + Jasper Canchola MD Unavailable Alexis Lopez MD Unavailable Kip Del Rio MD Unavailable Jacob Flynn MD Unavailable Encounter Details Date Type Department Care Team (Late st Contact Info) Description 05/24/2019 Orders Only [facility] Oncology [address] [facility] Advanced Medicine 7th [place] [address] [place] [address] Krystal Bowen BS Malignant neoplasm of lung, unspecified laterality, unspecified part of lung (CMS/HCC) (Primary Dx) Social History Tobacco Use Types Packs/Day Years Used Date Smoking Tobacco: Never Smokeless Tobacco: Never Alcohol Use Standard Drinks/Week Comments Yes 0 (1 standard drink = 0.6 oz pur e alcohol) social Sex and Gender Information Value Date Recorded Sex Assigned at Not on file Legal Sex Male 1:17 AM POULTRY CUTTER Gender Identity Not on file Sexual [...] encounter Visit Diagnoses Diagnosis Malignant neoplasm of lung, unspecified laterality, unspecified part of lung (HCC)- Primary documented in this encounter Care Teams Conditioner Tumbler Operator Relationship Specialty Start Date End Date Clara Stanley PA [address] [place] [address] PCP - General Nurse Practitioner 04/05/19 Jasper Canchola MD [address] [place] [address] Surgeon Thoracic Surgery 05/11/19 Alexis Lopez MD [address] [address] Business Support Manager Pulmonary Disease 05/11/19 Kip Del Rio MD [address] [facility] [address] [place] [address] Medical Oncologist/Cementer Oil Well Hematology and Oncology 05/11/19 Jacob Flynn MD [address] [facility] [address] [place] [address] Radiation Oncologist Radiation Oncology 05/25/19 documented as of this encounter
--- OUTSIDE RECORDS SUMMARY | 2024-03-02 03:49 | XMS_ITS | Encounter Summary ---
Author Organization [facility] Address [address] [place] [address] Care Team Providers Care Industrial Chemist Name Role Phone Clara Stanley Primary Care Provider + Reason for Referral * Diagnostic Imaging (Routine) - Closed Specialty Diagnoses / Procedures Referred By Contac t Referred To Contact Diagnoses Right lower lobe pulmonary nodule Procedures PET/CT FDG Skull to Thigh Alexis Lopez MD [address] [facility] [address] [place] [address] [place] [address] Phone: tel: fax: [address] [phone] fax: Referral ID Status Reason Start Date Expiration Date Visits Re quested Visits Authorized [id number] Closed 04/27/2019 11/05/2020 2 2 CULTURE MECHANIC Encounter Details Date Type Department Care Team (Late st Contact Info) Description 05/03/2019 1:06 PM AGRICULTURE MECHANIC Hospital Encounter [facility] OP INTERIM Alexis Lopez MD [address] [facility] [address] [place] [address] [place] [phone] Right lower lobe pulmonary nodule Social History Tobacco Use Types Packs/Day Years Used Date Smoking Tobacco: Never Smokeless Tobacco: Never Sex and Gender Information Value Date Recorded Sex Assigned at Not on file Legal Sex Male 1:17 AM AGRICULTURE MECHANIC Gender Identity Not on file Sexual [...] 04/12/2019 0 documented as of this encounter Plan of Treatment Not on file documented as of this encounter Procedures Procedure Name Priority Date/Time Associated Diagnosis Comments PET/CT TUMOR SKULL-THIGH Schedule Routine, Read Routine (OP Routine) 05/03/2019 1:09 PM AGRICULTURE MECHANIC documented in this encounter Results * PET/CT TUMOR SKULL-THIGH (05/03/2019 1:09 PM AGRICULTURE MECHANIC) Anatomical Region Laterality Modality N/A Positron Emissio n Tomography (PET) 05/03/2019 4:21 PM AGRICULTURE MECHANIC Narrative 05/03/2019 7:13 PM AGRICULTURE MECHANIC Patient Name: KWAKU BULLOCK ?Ordering Dr: Alexis Lopez MD ?? D.O.B: 1965 ? Exam Date: 05/03/19 ?? 1309 ?? Age: 53 ?Sex: Male ? MR#: [id number] ?? Loc: ? RADIOLOGY REPORT ?? Order #[id number] ?? PET ? PET/CT Skull/Thigh-OP Use Only ? Signed ? EXAM DESCRIPTION: ?? PET/CT Skull/Thigh-OP Use Only ? REASON FOR STUDY: ??Right lower lobe pulmonary nodule, PET-CT for diagnosis and ?? initial treatment strategy. ? RADIOPHARMACEUTICAL: ??14.4 mCi F-18 Fluorodeoxyglucose (FDG) via a left hand ?? IV site. ? TECHNIQUE: ??The patient's fasting blood glucose level, measured by glucometer ?? before injection of FDG, was 82 mg/dL. ??After intravenous administration of ?? FDG, noncontrast CT images were obtained for attenuation correction and for ?? fusion with emission PET images to allow for anatomical localization of PET ?? findings. ??Emission PET images were then obtained. The area imaged spanned the ?? region from the skull base to the thighs. The uptake time was approximately 60 ?? minutes. ? COMPARISON: ??No prior PET-CT. Correlation is made with a report of a CT chest ?? from 04/22/2019, the images are not available for direct comparison. ? Correlation is also made with a report from a CT abdomen and pelvis ?? 04/04/2019, images are not available. ? FINDINGS: ? When prior outside CT images can be obtained and submitted for review, direct ?? comparison can be made with an addendum issued as warranted. ? Head: Normal FDG uptake is seen in the included portion of the brain. ? Neck: Mildly prominent FDG activity at the base of tongue of the oropharynx ?? which is nonspecific, could be correlated with direct inspection. ??Small ?? cervical lymph nodes which are not pathologically enlarged. ? Chest: The round right lower lobe pulmonary nodule in the right base measures ?? 1.3 cm, maximal SUV is 3.3. ??No other hypermetabolic pulmonary nodules are ?? identified. ??There is a prominent subcarinal lymph node which is partially ?? calcified, this is 2.6 x 2.5 cm, maximal SUV 7.3. ??No other hypermetabolic ?? mediastinal or hilar lymph nodes. ??There is uptake in the medial aspect of the ?? bilateral apices with no obvious abnormality on the low-dose CT, this may be ?? due to prominent blood pool activity at this location. ??Heart size is top ?? normal. ??There is no pleural or pericardial effusion. ? Abdomen and Pelvis: Diffuse hepatic steatosis is noted with mild hepatomegaly. ?No focal abnormal uptake in the liver. ??Gallbladder is unremarkable. ??Spleen, ?? pancreas, and both adrenal glands show normal activity. ??Heterogeneous uptake ?? in the prostate, maximal SUV 4.4. ??Physiologic bowel activity. ??Excretion of ?? FDG from the kidneys is seen with expected accumulation of radiotracer in the ?? urinary bladder. ? Bones: Bone windows demonstrate no acute or aggressive osseous abnormality. ? IMPRESSION: ? 1. ??Right lower lobe 1.3 cm nodule shows moderate FDG uptake, this is ?? indeterminate but suspicious for malignancy. ? 2. ??FDG avid subcarinal lymph node, differential diagnosis would include ?? metastatic disease versus granulomatous process. ??Consider bronchoscopy with ?? tissue sampling. ? 3. ??No evidence of FDG avid distant metastasis. ? THIS IS AN ELECTRONICALLY VERIFIED FINAL REPORT ?? 05/03/2019 7:13 PM - Electronically signed by Jose Henderson M.D. ?? Jose Henderson M.D. ? CH: CH ?? D: ??05/03/2019 4:29 PM ?? T: ??05/03/2019 4:55 PM ? Report ID: [id number] ?? Reading Location: ??[id number] ? REPORT ELECTRONICALLY SIGNED IN OTHER VENDOR SYSTEM ?? Resulting Agency Comment O Procedure Note Jose Henderson Jr., MD - 05/03/2019 Patient Name: KWAKU BULLOCK Dr: Alexis Lopez MD D.O.B: 1965 Exam Date: 05/03/19 1309 Age: 53 Sex: Male MR#: [id number] Loc: [facility]#: [id number] RADIOLOGY REPORT Order #[id number] PET PET/CT Skull/Thigh-OP Use Only Signed EXAM DESCRIPTION: PET/CT Skull/Thigh-OP Use Only REASON FOR STUDY: Right lower lobe pulmonary nodule, PET-CT fordiagnosis and initial treatment strategy. RADIOPHARMACEUTICAL: 14.4 mCi F-18 Fluorodeoxyglucose (FDG) via a lefthand IV site. TECHNIQUE: The patient's fasting blood glucose level, measured byglucometer before injection of FDG, was 82 mg/dL. After intravenous administrationof FDG, noncontrast CT images were obtained for attenuation correction andfor fusion with emission PET images to allow for anatomical localization ofPET findings. Emission PET images were then obtained. The area imagedspanned the region from the skull base to the thighs. The uptake time wasapproximately 60 minutes. COMPARISON: No prior PET-CT. Correlation is made with a report of a CTchest from 04/22/2019, the images are not available for direct comparison. Correlation is also made with a report from a CT abdomen and pelvis 04/04/2019, images are not available. FINDINGS: When prior outside CT images can be obtained and submitted for review,direct comparison can be made with an addendum issued as warranted. Head: Normal FDG uptake is seen in the included portion of the brain. Neck: Mildly prominent FDG activity at the base of tongue of theoropharynx which is nonspecific, could be correlated with direct inspection. Small cervical lymph nodes which are not pathologically enlarged. Chest: The round right lower lobe pulmonary nodule in the right basemeasures 1.3 cm, maximal SUV is 3.3. No other hypermetabolic pulmonary nodulesare identified. There is a prominent subcarinal lymph node which ispartially calcified, this is 2.6 x 2.5 cm, maximal SUV 7.3. No otherhypermetabolic mediastinal or hilar lymph nodes. There is uptake in the medial aspectof the bilateral apices with no obvious abnormality on the low-dose CT, this maybe due to prominent blood pool activity at this location. Heart size is top normal. There is no pleural or pericardial effusion. Abdomen and Pelvis: Diffuse hepatic steatosis is noted with mildhepatomegaly. No focal abnormal uptake in the liver. Gallbladder is unremarkable.Spleen, pancreas, and both adrenal glands show normal activity. Heterogeneousuptake in the prostate, maximal SUV 4.4. Physiologic bowel activity. Excretionof FDG from the kidneys is seen with expected accumulation of radiotracer inthe urinary bladder. Bones: Bone windows demonstrate no acute or aggressive osseousabnormality. IMPRESSION: 1. Right lower lobe 1.3 cm nodule shows moderate FDG uptake, this is indeterminate but suspicious for malignancy. 2. FDG avid subcarinal lymph node, differential diagnosis would include metastatic disease versus granulomatous process. Consider bronchoscopywith tissue sampling. 3. No evidence of FDG avid distant metastasis. THIS IS AN ELECTRONICALLY VERIFIED FINAL REPORT 05/03/2019 7:13 PM - Electronically signed by Jose Henderson M.D. CH: BRYAN Report ID: [id number] Reading Location: [place] [address] REPORT ELECTRONICALLY SIGNED IN OTHER VENDOR SYSTEM Alexis Lopez MD IMG PET PROCEDURES Final Result documented in this encounter Visit Diagnoses Diagnosis Right lower lobe pulmonary nodule documented in this encounter Orders Imaging Orders Without Results Count Last Order ed Date First Ordered Date PET/CT FDG SKULL TO THIGH 1 05/03/2019 documented in this encounter Care Teams Industrial Chemist Relationship Specialty Start Date End Date Clara Stanley PA [address] [place] [phone] PCP - General Nurse Practitioner 04/05/19 documented as of this encounter
--- OUTSIDE RECORDS SUMMARY | 2024-03-02 03:49 | XMS_ITS | Encounter Summary ---
Author Organization [facility] Healthcare Address [address] [place] [address] Care Team Providers Care Law Office Receptionist Name Role Phone Clara Stanley Primary Care Provider + Encounter Details Date Type Department Care Team (Late st Contact Info) Description 05/04/2019 3:52 PM DENTAL PATIENT COORDINATOR Hospital Encounter [facility] OP INTERIM Alexis Lopez MD [address] [facility] [address] [address] Social History Tobacco Use Types Packs/Day Years Used Date Smoking Tobacco: Never Smokeless Tobacco: Never Sex and Gender Information Value Date Recorded Sex Assigned at Not on file Legal Sex Male 1:17 AM DENTAL PATIENT COORDINATOR Gender Identity Not on file Sexual [...] Date/Time Associated Diagnosis Comments CARDIOPULMONARY DIAGNOSTICS REPORT 05/11/2019 12:00 AM DENTAL PATIENT COORDINATOR documented in this encounter Results * CARDIOPULMONARY DIAGNOSTICS REPORT (05/11/2019 12:00 AM DENTAL PATIENT COORDINATOR) Narrative 05/11/2019 12:00 AM DENTAL PATIENT COORDINATOR Ordered by an unspecified provider. us Historical Provider MD NURSING COMMUNICATION Fin al Result documented in this encounter Visit Diagnoses Not on filedocumented in this encounter Care Teams Law Office Receptionist Relationship Specialty Start Date End Date Clara Stanley PA [address] [place] [phone] PCP - General Nurse Practitioner 04/05/19 documented as of this encounter
--- OUTSIDE RECORDS SUMMARY | 2024-03-02 03:49 | XMS_ITS | Encounter Summary ---
Author Organization [facility] Healthcare Address [address] [place] [address] Care Team Providers Care Sausage Meat Trimmer Name Role Phone Clara Stanley Primary Care Provider + Encounter Details Date Type Department Care Team (Latest Contact Info) Description 05/10/2019 10:34 AM QUALITY TESTER - 05/10/2019 10:35 AM QUALITY TESTER Hospital Encounter [facility] [address] [place] [id number] Diagnosis unknown Discharge Disposition: Discharge to home or self care Social History Tobacco Use Types Packs/Day Years Used Date Smoking Tobacco: Never Smokeless Tobacco: Never Sex and Gender Information Value Date Recorded Sex Assigned at Not on file Legal Sex Male 1:17 AM QUALITY TESTER Gender Identity Not on file Sexual [...] Priority Date/Time Associated Diagnosis Comments PET OUTSIDE CONSULT Routine 05/10/2019 1 0:34 AM QUALITY TESTER Diagnosis unknown documented in this encounter Results * PET Outside Consult (05/10/2019 10:34 AM QUALITY TESTER) Anatomical Region Laterality Modality N/A Nuclear Medicine 05/10/2019 12:0 2 PM QUALITY TESTER Impressions 05/10/2019 2:22 PM QUALITY TESTER 1. Mildly FDG-avid right lower lobe nodule; [...] can be better evaluated with physical examination. The findings, conclusions and recommendations within this report do not replace the initial findings, conclusions ??and recommendations made at the facility where the study was performed based upon the imaging and clinical condition at that time. ??Comparison with the prior report and clinical history is necessary. ??The provided images may or may not represent the mohegan source data set and thus may contain changes that may lower the accuracy of this second-opinion interpretation. Dictated by: Rainer Kelley MD, PHD The radiology attending physician has personally reviewed this study, and had reviewed and/or edited this written report and agrees with it. Electronically signed by: Phyllis Linder M.D. Narrative 05/10/2019 2:22 PM QUALITY TESTER EXAMINATION: RADIOLOGY CONSULTATION ON OUTSIDE IMAGING STUDY STUDY INITIALLY PERFORMED: 05/03/2019, images acquired at [facility]. ?? TYPE OF STUDY: FDG-PET/CT. The images available for review consisted of axial attenuation-corrected and uncorrected PET images and axial CT images. ??Oral contrast administration was not performed. Intravenous contrast administration was not performed. The total scanned area was skull base to the proximal thighs. The mean liver SUV (reported for it quality analyst purposes) is 3.4. The study was interpreted on the [employer] workstation. The protocol was adequate to address the clinical question. ?? The outside final report was available at the time of this second opinion interpretation. DATE OF CONSULTATION: 05/10/2019 HISTORY: 53-year-old male nonsmoker with an incidentally discovered right lower lobe nodule by abdominal CT scan. ?? Initial treatment strategy. COMPARISON: Outside CT scan dated 04/04/2019 and 04/22/2019 FINDINGS: In the right lower lobe posterior segment, a mildly hypermetabolic nodule measures 1.3 cm in greatest dimension with SUV maximum of 3.3 on image 102. A hypermetabolic enlarged subcarinal lymph node with calcification measures 1.9 x 1.8 cm in size with SUV maximum of 7.3 on image 84. There is FDG uptake in the bilateral upper posterior mediastinum, likely representing brown fat activity. There is a small cutaneous nodule with mild FDG uptake in the right side of the anterior pelvic wall. There is 0.9 cm cardiophrenic lymph node (medial to the IVC/right atrium junction) with SUV maximum of 2.7 and mildly FDG avid upper abdominal lymph nodes, could be reactive. Additional CT findings: There is colonic diverticulosis. There is bilateral gynecomastia. Procedure Note Phyllis Linder MD - 05/10/2019 EXAMINATION: RADIOLOGY CONSULTATION ON OUTSIDE IMAGING STUDY STUDY INITIALLY PERFORMED: 05/03/2019, images acquired at [facility]. TYPE OF STUDY: FDG-PET/CT. The images available for review consisted of axial attenuation-corrected and uncorrected PET images and axial CT images. Oral contrast administration was not performed. Intravenous contrast administration was not performed. The total scanned area was skull base to the proximal thighs. The mean liver SUV (reported for it quality analyst purposes) is 3.4. The study was interpreted on the [employer] workstation. The protocol was adequate to address the clinical question. The outside final report was available at the time of this second opinion interpretation. DATE OF CONSULTATION: 05/10/2019 HISTORY: 53-year-old male nonsmoker with an incidentally discovered right lower lobe nodule by abdominal CT scan. Initial treatment strategy. COMPARISON: Outside CT scan dated 04/04/2019 and 04/22/2019 FINDINGS: In the right lower lobe posterior segment, a mildly hypermetabolic nodule measures 1.3 cm in greatest dimension with SUV maximum of 3.3 on image 102. A hypermetabolic enlarged subcarinal lymph node with calcification measures 1.9 x 1.8 cm in size with SUV maximum of 7.3 on image 84. There is FDG uptake in the bilateral upper posterior mediastinum, likely representing brown fat activity. There is a small cutaneous nodule with mild FDG uptake in the right side of the anterior pelvic wall. There is 0.9 cm cardiophrenic lymph node (medial to the IVC/right atrium junction) with SUV maximum of 2.7 and mildly FDG avid upper abdominal lymph nodes, could be reactive. Additional CT findings: There is colonic diverticulosis. There is bilateral gynecomastia. IMPRESSION: 1. Mildly FDG-avid right lower lobe nodule; [...] can be better evaluated with physical examination. The findings, conclusions and recommendations within this report do not replace the initial findings, conclusions and recommendations made at the facility where the study was performed based upon the imaging and clinical condition at that time. Comparison with the prior report and clinical history is necessary. The provided images may or may not represent the mohegan source data set and thus may contain changes that may lower the accuracy of this second-opinion interpretation. Dictated by: Rainer Kelley MD, PHD The radiology attending physician has personally reviewed this study, and had reviewed and/or edited this written report and agrees with it. Electronically signed by: Phyllis Linder M.D. Jasper Canchola MD IMG PET PROCEDURES Final Result documented in this encounter Visit Diagnoses Diagnosis Diagnosis unknown documented in this encounter Care Teams Sausage Meat Trimmer Relationship Specialty Start Date End Date Clara Stanley PA [address] [place] [phone] PCP - General Nurse Practitioner 04/05/19 documented as of this encounter
--- OUTSIDE RECORDS SUMMARY | 2024-03-02 03:49 | XMS_ITS | Encounter Summary ---
Author Organization [facility] Address [address] [place] [address] Care Team Providers Care Door Attendant Name Role Phone Clara Stanley Primary Care Provider + Jasper Canchola MD Unavailable Alexis Lopez MD Unavailable Kip Del Rio MD Unavailable Jacob Flynn MD Unavailable Encounter Details Date Type Department Care Team (Late st Contact Info) Description 04/09/2019 Orders Only [facility] Health Information Management [address] [place] [address] Scanning, Provider Social History Tobacco Use Types Packs/Day Years Used Date Smoking Tobacco: Never Assessed Sex and Gender Information Value Date Recorded Sex Assigned at Not on file Legal Sex 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 Gender Identity Not on file Sexual [...] Date/Time Associated Diagnosis Comments SCAN - RADIOLOGY/IMAGING 04/09/2019 documented in this encounter Results * SCAN - RADIOLOGY/IMAGING (04/09/2019) Anatomical Region Laterality Modality Other us Provider Scanning Edited Result - Final documented in this encounter Visit Diagnoses Not on filedocumented in this encounter Care Teams Door Attendant Relationship Specialty Start Date End Date Clara Stanley PA [address] [place] [address] PCP - General Nurse Practitioner 04/05/19 Jasper Canchola MD [address] [place] [address] Surgeon Thoracic Surgery 05/11/19 Alexis Lopez MD [address] [address] Vacuum Cleaner Mechanic Pulmonary Disease 05/11/19 Kip Del Rio MD [address] [place] [address] Medical Oncologist/Line Installation Supervisor Hematology and Oncology 05/11/19 Jacob Flynn MD [address] [place] [address] Radiation Oncologist Radiation Oncology 05/25/19 documented as of this encounter
--- OUTSIDE RECORDS SUMMARY | 2024-03-02 03:49 | XMS_ITS | Encounter Summary ---
Author Organization [facility] Address [address] [place] [address] Care Team Providers Care Fish Straightener Name Role Phone Clara Stanley Primary Care Provider + Encounter Details Date Type Department Care Team (Late st Contact Info) Description 05/04/2019 Telephone [facility] Pulmonology [address] [facility] [facility] [address] [place] [address] Yolanda Segal RN Social History Tobacco Use Types Packs/Day Years Used Date Smoking Tobacco: Never Smokeless Tobacco: Never Sex and Gender Information Value Date Recorded Sex Assigned at Not on file Legal Sex Male 1:17 AM POTTERY DECORATION DESIGNER Gender Identity Not on file Sexual Orientation Straight 09/22/2019 8: 21 PM CDT documented as of this encounter Miscellaneous Notes * Telephone Encounter - Yolanda Segal RN - 05/04/2019 12:18 PM POTTERY DECORATION DESIGNER Pt has been scheduled for a bronch with ebus on 05/06/19 @ 0945 with pretesting on 05/05/19 @ 1110.Pt and were notified while in office and verbalized understanding. Orders have been sent. ERY DECORATION DESIGNER documented in this encounter Plan of Treatment Not on file documented as of this encounter Visit Diagnoses Not on filedocumented in this encounter Care Teams Fish Straightener Relationship Specialty Start Date End Date Clara Stanley PA [address] [place] [phone] PCP - General Nurse Practitioner 04/05/19 documented as of this encounter
--- OUTSIDE RECORDS SUMMARY | 2024-03-02 03:49 | XMS_ITS | Encounter Summary ---
Author Organization [facility] Address [address] [place] [address] Care Team Providers Care Administrative Resident Name Role Phone Clara Stanley Primary Care Provider + Encounter Details Date Type Department Care Team (Late st Contact Info) Description 05/06/2019 Orders Only [facility] Pulmonology [address] [facility] [address] [place] [address] Blair Cooley MD [address] [facility] [address] [place] [address] Social History Tobacco Use Types Packs/Day Years Used Date Smoking Tobacco: Never Smokeless Tobacco: Never Sex and Gender Information Value Date Recorded Sex Assigned at Not on file Legal Sex Male 1:17 AM AIRCRAFT LOG CLERK Gender Identity Not on file Sexual Orientation Straight 09/22/2019 8: 21 PM CDT documented as of this encounter Plan of Treatment Not on file documented as of this encounter Procedures Procedure Name Priority Date/Time Associated Diagnosis Comments CYTOLOGY Routine 05/06/2019 12:00 AM AIRCRAFT LOG CLERK documented in this encounter Results * Cytology (05/06/2019 12:00 AM AIRCRAFT LOG CLERK) 05/06/2019 05/06/2019 10: 40 AM AIRCRAFT LOG CLERK Narrative 05/09/2019 4:46 PM AIRCRAFT LOG CLERK [facility] Department of Pathology [address] [place], [place] [address] ?? Final Report Patient Name: ??KWAKU BULLOCK : ??1965 (Age: 53) Gender: ??M Address: ??[address] [place] [id number] Hospital #: ??[id number] Service: ??DEFAULT Location: ??[facility] Outpatient Surgery Patient Type: ??Same Day Service Taken: ??05/06/2019 Received: ??05/06/2019 Accessioned: ??05/06/2019 Reported: ??05/09/2019 Physician(s): ??Blair Cooley MD Diagnosis: Subcarinal lymph node, EBUS-guided guided FNA ? ? 5: - MALIGNANT - Direct smears from the first pass show numerous dispersed stripped malignant nuclei with neuroendocrine chromatin and a few aggregated intact malignant cells. ??The cell block includes similar cells, along with several fragments of calcified cartilage. 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 ??TTF-1 immunostain is negative. ??Controls stain appropriately. Diagnosis Comment: Preliminary results were communicated to Dr. Cooley on 05/09/2019 at ~12:15. Samantha Cassidy M.D. Report Electronically Reviewed and Signed Out By ??Samantha Cassidy M.D. ??05/09/2019 16:46:25 Specimen(s) Received: A: Fine Needle, EBUS Subcarinal lymph node Clinical History: Lung mass Immediate Assessment: Subcarinal lymph node, EBUS-guided guided FNA Evaluation 1: Malignant Reported to Dr. Cooley at [address] Cassidy Four additional passes obtained for cell block Samantha Cassidy M.D. Gross Description: A) Received from the first pass are 2 direct smears (1DQ,1Pap). ??Four additional passes yield 20 cc of blood flecked combined needle rinse from which a cellblock is prepared. Total slides at preparation = 4. ?? Microscopic Description: Microscopic examination is performed. ?? us Blair Cooley MD LAB CYTOLOGY ORDERABLES Marianne l Result documented in this encounter Visit Diagnoses Not on filedocumented in this encounter Care Teams Administrative Resident Relationship Specialty Start Date End Date Clara Stanley PA [address] [place] [id number] PCP - General Nurse Practitioner 04/05/19 documented as of this encounter
--- OUTSIDE RECORDS SUMMARY | 2024-03-02 03:49 | XMS_ITS | Encounter Summary ---
Author Organization [facility] Address [address] [place] [address] Phone Care Team Providers Care Boat Loader Name Role Phone Clara Stanley Primary Care Provider + Jasper Canchola MD Unavailable Alexis Lopez MD Unavailable Kip Del Rio MD Unavailable Encounter Details Date Type Department Care Team (Latest Contact Info) Description 05/11/2019 1:45 PM HEEL ROOM SUPERVISOR Office Visit [facility] Surgery [facility] Advanced [facility] [address]th [place] [address] [place] [phone] Jasper Canchola MD [address] [facility] [id number] [place] [address] High grade neuroendocrine carcinoma (CMS/HCC) (Primary Dx) Social History Tobacco Use Types Packs/Day Years Used Date Smoking Tobacco: Never Smokeless Tobacco: Never Sex and Gender Information Value Date Recorded Sex Assigned at Not on file Legal Sex Male 1:17 AM HEEL ROOM SUPERVISOR Gender Identity Not on file Sexual Orientation Straight 09/22/2019 8: 21 PM CDT documented as of this encounter Last Filed Vital Signs Vital Sign Reading Time Taken Comments Blood Pressure 143/83 05/11/2019 1:35 PM HEEL ROOM SUPERVISOR Pulse 77 05/11/2019 1:35 PM HEEL ROOM SUPERVISOR Temperature 36.7 ??C (98.1 ??F) 05/11/2019 1:35 PM CS T Respiratory Rate 16 05/11/2019 1:35 PM HEEL ROOM SUPERVISOR Oxygen Saturation 98% 05/11/2019 1:35 PM HEEL ROOM SUPERVISOR Inhaled Oxygen Concentration - - Weight 158.6 kg (349 lb 9.6 oz) 05/11/2019 1:35 PM HEEL ROOM SUPERVISOR Height 190.5 cm (6' 3 ) 05/11/2019 1:35 PM HEEL ROOM SUPERVISOR Body Mass Index 43.7 05/11/2019 1:35 PM HEEL ROOM SUPERVISOR documented in this encounter Progress Notes * Stephanie Bautista, TOP INVENTORY CONTROL EXECUTIVE - 05/11/2019 1:45 PM CST [facility] Cardiothoracic Surgery New Patient Consultation / Evaluation REASON FOR CONSULTATION: High grade neuroendocrine carcinoma (CMS/HCC) REFERRING PROVIDER: Blair Cooley HISTORY OF PRESENT ILLNESS: The patient is a 53 y.o. male presenting today at the request of KashifS. 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 He is a lifelong non smoker who was noted to have a right lower lobe pulmonary nodule on CT imagingof the chest. His history begins back in February when he developed headaches. His headaches did not improved with ibuprofen. They progressed to severe and he developed associated dizziness. He was evaluated in a local ER where his blood work showed elevated white blood cells . He was diagnoses with a viral infection and sent home. He continued to have severe headaches and sought evaluation at [facility] where a CT scan of the brain was performed. He was diagnosed with idiopathic intracranial hypertension where he underwent a lumbar puncture followed by diuretics. This improved his headaches. Shortly thereafter, he developed abdominal pain where imaging noted a right- sided pulmonary nodule. PET scan revealed abnormal uptake within this right lower lobe pulmonary nodule as well as PET avidmediastinal lymphadenopathy. He was subsequently referred to local customer training specialist, Dr. Blair Cooley, where he underwent a FOB, EBUS with sampling of the subcarinal lymph node. Subcarinal lymph node cytology was consistent with a high-grade neuroendocrine carcinoma. He reports his sister was recently diagnosed with a lung cancer treated with surgery and now receiving post operative chemotherapy. She was also a lifelong non smoker but He is referred here today for further evaluation and discussion. MEDICAL CONDITIONS: Patient Active Problem List Diagnosis ??? Right lower lobe pulmonary nodule ??? High grade neuroendocrine carcinoma (CMS/HCC) PAST MEDICAL HISTORY: He has a past medical history of IIH (idiopathic intracranial hypertension). PAST SURGICAL HISTORY: He has a past surgical history that includes Appendectomy. MEDICATIONS: He has a current medication list which includes the following prescription(s): acetazolamide er, amlodipine, cetirizine, pravastatin, dicyclomine, and omeprazole. ALLERGIES: He has No Known Allergies. FAMILY HISTORY: His family history includes Cancer in his father, mother, and sister; Heart disease in his father. SOCIAL HISTORY: He reports that he has never smoked. He has never used smokeless tobacco. No history on file for alcohol and drug. REVIEW OF SYSTEMS: A comprehensive review of systems was completed by the patient; and reviewed, signed, and scanned into the chart. PHYSICAL EXAMINATION: Ht: 190.5 cm (6' 3 ) Wt: (!) 158.6 kg (349 lb 9.6 oz) BMI: Body mass index is 43.7 kg/m??. BP 143/83 Pulse 77 Temp 36.7 ??C (98.1 ??F) Resp 16 Ht 190.5 cm (6' 3 ) Wt (!) 158.6 kg (349 lb 9.6 oz) SpO2 98% BMI 43.70 kg/m?? Physical Exam Constitutional: Appearance: Normal appearance. He is normal weight. HENT: Head: Normocephalic and atraumatic. Right Ear: External ear normal. Left Ear: External ear normal. Nose: Nose normal. Mouth/Throat: Mouth: Mucous membranes are moist. Pharynx: Oropharynx is clear. Eyes: Conjunctiva/sclera: Conjunctivae normal. Pupils: Pupils are equal, round, and reactive to light. Neck: Musculoskeletal: Normal range of motion and neck supple. Cardiovascular: Rate and Rhythm: Normal rate and regular rhythm. Heart sounds: Normal heart sounds. Pulmonary: Effort: Pulmonary effort is normal. Breath [...] and time. Mental status is at baseline. Psychiatric: Mood and Affect: Mood normal. Behavior: Behavior normal. Thought Content: Thought content normal. Judgment: Judgment normal. RESULTS: 1.) Bronchoscopy report from [facility] dated 05/06/2019- - endobronchial ultrasound bronchoscope was advanced into the airways with transbronchial needle aspirates performed on level 7 (subcarinal) region. 2.) Cytology report from [facility] dated 05/06/2019- Diagnosis: Subcarinal lymph node, EBUS-guided FNA ??5: - MALIGNANT - Direct smears from the first pass show numerous dispersed stripped malignant nuclei with neuroendocrine chromatin and a few aggregated intact malignant cells. The cell block includes similar cells,along with several fragments of calcified cartilage. Positive synaptophysin, chromogranin, and CK 8/18 immunostain on the cell block support the interpretation of high-grade neuroendocrine carcinoma.TTF-1 immunostain is negative. Controls stain appropriately. 3.) CT scan of the chest, abdomen and pelvis with IV contrast performed at [facility] was reviewed and consulted on at this institution on 05/10/2019- EXAMINATION: RADIOLOGY CONSULTATION ON OUTSIDE IMAGING STUDY ?? STUDY INITIALLY PERFORMED: 04/04/2019 and 04/22/2019 at [facility]. ?? TYPE OF STUDY: Multiple CT images of the chest, abdomen and pelvis with intravenous contrast are provided at the time of this interpretation. ?? CONTRAST ROUTE: Contrast was administered via the intravenous route. ?? The protocol was adequate to address the clinical question. The outside final report was not available at the time of this second opinion interpretation. ?? TYPE OF CONSULTATION: Consult on outside imaging study with images submitted through [facility] ?? DATE OF CONSULTATION: 05/10/2019 11:03 AM ?? HISTORY: Pulmonary nodule ?? COMPARISON: None available. ?? FINDINGS: ?? CHEST: There is a 1.6 x 1.5 cm lobulated nodule in the medial right lower lobe (slice 61). There is associated mild air trapping and satellite lesions. No pleural effusions or pneumothorax. ?? No axillary, supraclavicular, or hilar lymphadenopathy. There is a partially calcified subcarinal lymph node. Heart size is normal without pericardial effusion. There are minimal coronary artery calcifications. Aortic arch is normal in caliber. Thyroid is normal. Trachea is patent. Esophagus is normal. ?? Abdomen and pelvis: The liver is normal in size and morphology without any suspicious lesions. The spleen, gallbladder and common bile duct are normal. Portal, splenic and superior mesenteric veins are patent. The stomach and duodenum are normal. ?? The adrenal glands normal bilaterally. The kidneys enhance symmetrically without hydronephrosis. Urinary bladder is normal. Prostate gland is normal. ?? The colon is normal in size with mild diverticulosis. There are post surgical changes of appendectomy. No small bowel wall thickening or obstruction. There is no retroperitoneal, pelvic or mesenteric lymphadenopathy. There is mild atherosclerosis of the abdominal vasculature. No free fluid or gas. ?? Bone windows demonstrate no suspicious lytic or blastic osseous lesions. ?? IMPRESSION: Lobulated right lower lobe nodule with associated satellite nodules, air trapping and subcarinal lymphadenopathy consistent with biopsy proven high grade neuroendocrine tumor. ?? The findings, conclusions and recommendations within this report do not replace the initial findings, conclusions and recommendations made at the facility where the study was performed based upon the imaging and clinical condition at that time. Comparison with the prior report and clinical history is necessary. The provided images may or may not represent the [place] source data set and thus may contain changes that may lower the accuracy of this second-opinion Interpretation. 4.) PET scan performed at [facility] dated 05/03/2019 was reviewed and consulted on at this center on 05/10/2019- EXAMINATION: RADIOLOGY CONSULTATION ON OUTSIDE IMAGING STUDY ?? STUDY INITIALLY PERFORMED: 05/03/2019, images acquired at [facility]. ?? TYPE OF STUDY: FDG-PET/CT. The images available for review consisted of axial attenuation-corrected and uncorrected PET images and axial CT images. Oral contrast administration was not performed. Intravenous contrast administration was not performed. The total scanned area was skull base to the proximal thighs. ?? The mean liver SUV (reported for quality control engineer purposes) is 3.4. The study was interpreted on the [employer] workstation. ?? The protocol was adequate to address the clinical question. The outside final report was available at the time of this second opinion interpretation. DATE OF CONSULTATION: 05/10/2019 ?? HISTORY: 53-year-old male nonsmoker with an incidentally discovered right lower lobe nodule by abdominal CT scan. ?? Initial treatment strategy. ?? COMPARISON: Outside CT scan dated 04/04/2019 and 04/22/2019 ?? FINDINGS: ?? In the right lower lobe posterior segment, a mildly hypermetabolic nodule measures 1.3 cm in greatest dimension with SUV maximum of 3.3 on image 102, comparable with blood pool activity. A hypermetabolic enlarged subcarinal lymph node with calcification measures 1.9 x 1.8 cm in size with SUV maximum of 7.3 on image 84. ?? There is FDG uptake in the bilateral cervical root, likely representing brown fat activity. ?? There is a small subcutaneous nodule with mild FDG uptake in the right side of the anterior pelvic wall, correlation with physical examination is warranted. ?? There is 0.9 cm cardiophrenic lymph node (medial to the IVC/right atrium junction) with SUV maximum of 2.7 and mildly FDG avid upper abdominal lymph nodes, could be reactive. Additional CT findings: There is colonic diverticulosis. There are bilateral gynecomastias. ?? IMPRESSION: ?? 1. Mildly FDG-avid right lower lobe nodule suspicious for primary malignancy ?? 2. Hypermetabolic enlarged subcarinal lymph node consistent with high-grade neuroendocrine carcinoma reported from the cytological study of 05/06/2019 3. Mildly hypermetabolic subcutaneous nodule in the anterior pelvic wall, correlation with physical exam is recommended. ?? The findings, conclusions and recommendations within this report do not replace the initial findings, conclusions and recommendations made at the facility where the study was performed based upon the imaging and clinical condition at that time. Comparison with the prior report and clinical history is necessary. The provided images may or may not represent the [place] source data set and thus may contain changes that may lower the accuracy of this second-opinion interpretation. 5.) MRI angio of the brain performed at [facility] dated 03/24/2019- IMPRESSION: 1. No evidence of acute cerebral infarction. 2. No large arterial occlusions or significant stenoses identified in the head. 3. No evidence of dural sinus thrombosis. ASSESSMENT AND PLAN: Please see Dr. Canchola's initial consultation letter for additional details. The patient is a 53 y.o. male with a biopsy proven high-grade neuroendocrine carcinoma involving the subcarinal lymph node and most likely the right lower lobe pulmonary nodule. We had his OSH imaging reviewed and consulted on at this center. Those findings are summarized above. We are currently awaiting his OSH pathology slides for review here. He is scheduled to see Dr. Del Rio in medical oncology tomorrow morning. Final plan of care pending at the time of this dictation. TJ Grove MD Sales Administrator completed using [employer] Direct speaking software, therefore, diesel stationary engineer variances may occur. ROOM SUPERVISOR documented in this encounter Plan of Treatment Not on file documented as of this encounter Visit Diagnoses Diagnosis High grade neuroendocrine carcinoma (HCC)- Primary documented in this encounter Care Teams Boat Loader Relationship Specialty Start Date End Date Clara Stanley PA [address] [place] [address] PCP - General Nurse Practitioner 04/05/19 Jasper Canchola MD [address] [place] [address] Surgeon Thoracic Surgery 05/11/19 Alexis Lopez MD [address] [address] Coal Pulverizer Operator Pulmonary Disease 05/11/19 Kip Del Rio MD [address] [facility] [address] [place] [address] Medical Oncologist/Fitter Placer Hematology and Oncology 05/11/19 documented as of this encounter
--- OUTSIDE RECORDS SUMMARY | 2024-03-02 03:49 | XMS_ITS | Encounter Summary ---
Author Organization [facility] Healthcare Address [address] [place] [address] Care Team Providers Care Ethnic Studies Professor Name Role Phone Clara Stanley Primary Care Provider + Encounter Details Date Type Department Care Team (Latest Contact Info) Description 05/10/2019 12:00 PM HYDROTREATER OPERATOR - 05/10/2019 11:59 PM HYDROTREATER OPERATOR Hospital Encounter [facility] [address] [place] [address] Discharge Disposition: Discharge to home or self care Social History Tobacco Use Types Packs/Day Years Used Date Smoking Tobacco: Never Smokeless Tobacco: Never Sex and Gender Information Value Date Recorded Sex Assigned at Not on file Legal Sex Male 1:17 AM HYDROTREATER OPERATOR Gender Identity Not on file Sexual [...] Comments NEURO CT MR OUTSIDE REFERENCE Routine 05/10/2019 12:00 PM HYDROTREATER OPERATOR Diagnosis unknown documented in this encounter Results * Neuro CT MR Outside Reference (05/10/2019 12:00 PM HYDROTREATER OPERATOR) Impressions [facility] - 05/10/2019 12:00 PM HYDROTREATER OPERATOR These images are for Reference purposes only and have not been reviewed by [facility] Radiology. ??There will be no report generated by a [facility] Radiologist. Narrative [facility] - 05/10/2019 12:00 PM HYDROTREATER OPERATOR EXAMINATION: ??Images For Reference Purposes Only us Jasper Canchola MD IMG CT PROCEDURES Final R esult [facility] documented in this encounter Visit Diagnoses Not on filedocumented in this encounter Care Teams Ethnic Studies Professor Relationship Specialty Start Date End Date Clara Stanley PA [address] [place] [phone] PCP - General Nurse Practitioner 04/05/19 documented as of this encounter
--- OUTSIDE RECORDS SUMMARY | 2024-03-02 03:49 | XMS_ITS | Encounter Summary ---
Author Organization [facility] Address [address] [place] [address] Care Team Providers Care Mirror Fabrication Supervisor Name Role Phone Clara Stanley Primary Care Provider + Jasper Canchola MD Unavailable Alexis Lopez MD Unavailable Kip Del Rio MD Unavailable Jacob Flynn MD Unavailable Encounter Details Date Type Department Care Team (Late st Contact Info) Description 04/04/2019 Orders Only [facility] Health Information Management [address] [place] [address] Scanning, Provider Social History Tobacco Use Types Packs/Day Years Used Date Smoking Tobacco: Never Assessed Sex and Gender Information Value Date Recorded Sex Assigned at Not on file Legal Sex Male 1:17 AM BEEKEEPER FARMER Gender Identity Not on file Sexual Orientation [...] Date/Time Associated Diagnosis Comments SCAN - RADIOLOGY/IMAGING 04/04/2019 documented in this encounter Results * SCAN - RADIOLOGY/IMAGING (04/04/2019) Anatomical Region Laterality Modality Other us Provider Scanning Final Result documented in this encounter Visit Diagnoses Not on filedocumented in this encounter Care Teams Mirror Fabrication Supervisor Relationship Specialty Start Date End Date Clara Stanley PA [address] [place] [address] PCP - General Nurse Practitioner 04/05/19 Jasper Canchola MD [address] [place] [address] Surgeon Thoracic Surgery 05/11/19 Alexis Lopez MD [address] [address] Stars Coordinator Pulmonary Disease 05/11/19 Kip Del Rio MD [address] [facility] [address] [place] [address] Medical Oncologist/Terrazzo Polisher Helper Hematology and Oncology 05/11/19 Jacob Flynn MD [address] [facility] [address] [facility] [address] [place] [address] Radiation Oncologist Radiation Oncology 05/25/19 documented as of this encounter
--- OUTSIDE RECORDS SUMMARY | 2024-03-02 03:49 | XMS_ITS | Encounter Summary ---
Author Organization [facility] Facility Care Team Providers Care Hand Collator Name Role Phone Clara Stanley Primary Care Provider + Encounter Details Date Type Department Care Team (Latest Contact Info) Description 04/27/2019 Travel Social History Tobacco Use Types Packs/Day Years Used Date Smoking Tobacco: Never Smokeless Tobacco: Never Sex and Gender Information Value Date Recorded Sex Assigned at Not on file Legal Sex Male 1:17 AM LUMP ROLLER Gender Identity Not on file Sexual Orientation Straight 09/22/2019 8: 21 PM CDT documented as of this encounter Plan of Treatment Not on file documented as of this encounter Visit Diagnoses Not on filedocumented in this encounter Care Teams Hand Collator Relationship Specialty Start Date End Date Clara Stanley PA [address] [place] [id number] PCP - General Nurse Practitioner 04/05/19 documented as of this encounter
--- OUTSIDE RECORDS SUMMARY | 2024-03-02 03:49 | XMS_ITS | Encounter Summary ---
Author Organization [facility] Healthcare Address [address] [place] [address] Care Team Providers Care Wire Bender Hand Name Role Phone Clara Stanley Primary Care Provider + Encounter Details Date Type Department Care Team (Latest Contact Info) Description 05/10/2019 11:58 AM FARM ADVISER - 05/10/2019 11:59 AM FARM ADVISER Hospital Encounter [facility] [address] [place] [address] Discharge Disposition: Discharge to home or self care Social History Tobacco Use Types Packs/Day Years Used Date Smoking Tobacco: Never Smokeless Tobacco: Never Sex and Gender Information Value Date Recorded Sex Assigned at Not on file Legal Sex Male 1:17 AM FARM ADVISER Gender Identity Not on file Sexual Orientation [...] Comments XR TRANSFER OF OUTSIDE FILMS Routine 05/10/2019 11:58 AM FARM ADVISER Diagnosis unknown documented in this encounter Results * XR Outside Reference (05/10/2019 11:58 AM FARM ADVISER) Impressions RAD_PACS[facility] - 05/10/2019 11:58 AM FARM ADVISER These images are for Reference purposes only and have not been reviewed by [facility] Radiology. ??There will be no report generated by a [facility] Radiologist. Narrative RAD_PACS_[facility] - 05/10/2019 11:58 AM FARM ADVISER EXAMINATION: ??Images For Reference Purposes Only us Jasper Canchola MD IMG XR PROCEDURES Final R esult [facility] documented in this encounter Visit Diagnoses Not on filedocumented in this encounter Care Teams Wire Bender Hand Relationship Specialty Start Date End Date Clara Stanley PA [address] [place] [address] PCP - General Nurse Practitioner 04/05/19 documented as of this encounter
--- OUTSIDE RECORDS SUMMARY | 2024-03-02 03:49 | XMS_ITS | Encounter Summary ---
Author Organization [facility] Address [address] [facility] [address] [place] [address] Care Team Providers Care Fur Blowing Machine Operator Name Role Phone Clara Stanley Primary Care Provider + Reason for Referral * Consultation (Routine) - Closed Specialty Diagnoses / Procedures Referred By Contac t Referred To Contact Oncology Diagnoses Right lower [place] [address] [place] [address] [address] [place] [address] Phone: tel: fax: Kip Block MD [address] [place] [address] [place] [address] Phone: tel: fax: Referral ID Status Reason Start Date Expiration Date V isits Requested Visits Authorized [id number] Closed Specialty Services Required 05/10/2019 11/18/2020 1 1 Question Answer Is this referral for [facility]iplinary [facility]? No Please select the performing region: External Order [[id number]] To provider: KIP BLOCK [[id number]] # of visits: 1 L SALVAGER Encounter Details Date Type Department Care Team (Late st Contact Info) Description 05/10/2019 Orders Only [facility] Pulmonology [address] [facility] [address] [place] [address] Deb Marcum MA Right lower lobe pulmonary nodule (Primary Dx) Social History Tobacco Use Types Packs/Day Years Used Date Smoking Tobacco: Never Smokeless Tobacco: Never Sex and Gender Information Value Date Recorded Sex Assigned at Not on file Legal Sex Male 1:17 AM SPOOL SALVAGER Gender Identity Not on file Sexual Orientation Straight 09/22/2019 8: 21 PM CDT documented as of this encounter Progress Notes * Deb Marcum MA - 05/10/2019 9:09 AM CST Called New patient scheduling this AM, Ivone from scheduling will call back. Ramila from office called and would like op records sent, pt scheduled own appointment over there on 05/11/2019. Spoke with Ivone @ [facility], Pt is scheduled for , 05/12/2019, @ 8 am. Patient was informed and pt will picker operator CDs with images today and get PSA lab work completed @ [facility], ( ordered per ) L SALVAGER documented in this encounter Plan of Treatment Scheduled Referrals Name Type Priority Associated Diagnoses Order Schedule Ambulatory referral to Oncology Outpatient Referral Routine Right lower lobe pulmonary nodule Expected: 05/10/2019 (Approximate), Expires: 05/10/2020 documented as of this encounter Procedures Procedure Name Priority Date/Time Associated Diagnosis Comments PSA, TOTAL AND FREE Routine 05/10/2019 1 2:35 PM SPOOL SALVAGER Right lower lobe pulmonary nodule documented in this encounter Results * PSA, total and free (05/10/2019 12:35 PM SPOOL SALVAGER) Free PSA Screen 0.4 ng/mL [facility] PROSTATE SPECIFIC AG, TOTAL 1.9 0.0 - 4.0 ng/mL [facility] [employer] [facility] Comment: INTERPRETIVE INFORMATION: Prostate Specific Antigen The [...] PROSTATE SPECIFIC AG, % FREE 21 % [facility] Comment: INTERPRETIVE INFORMATION: Prostate Specific Antigen, Free Percentage [facility] uses the E[employer] Free PSA electrochemiluminescent immunoassay [...] prostate cancer in individual patients. Performed by [facility], [address] [place] [address] [email or web address], Carlyle Stewart MD, Lab. Director Blood specimen (specimen) 05/10/2019 12:35 PM SPOOL SALVAGER 05/10/2019 1:05 PM SPOOL SALVAGER Narrative Resulting Agency Comment CLI us Alexis Lopez MD LAB BLOOD ORDERABLES Marianne l Result [facility] [address] [phone] documented in this encounter Visit Diagnoses Diagnosis Right lower lobe pulmonary nodule- Primary documented in this encounter Care Teams Fur Blowing Machine Operator Relationship Specialty Start Date End Date Clara Stanley PA [address] [place] [address] PCP - General Nurse Practitioner 04/05/19 documented as of this encounter
--- OUTSIDE RECORDS SUMMARY | 2024-03-02 03:49 | XMS_ITS | Encounter Summary ---
Author Organization [facility] Healthcare Address [address] [place] [address] Care Team Providers Care Admissions Manager Name Role Phone Clara Stanley Primary Care Provider + Encounter Details Date Type Department Care Team (Late st Contact Info) Description 05/05/2019 11:07 AM CAR DEALER Hospital Encounter [facility] INTERIM Blair Cooley MD [address] [facility] [address] [address] Social History Tobacco Use Types Packs/Day Years Used Date Smoking Tobacco: Never Smokeless Tobacco: Never Sex and Gender Information Value Date Recorded Sex Assigned at Not on file Legal Sex Male 1:17 AM CAR DEALER Gender Identity Not on file Sexual Orientation [...] Procedure Name Priority Date/Time Associated Diagnosis Comments CBC WITH AUTO DIFFERENTIAL Routine 05/05/2019 11:49 AM CAR DEALER APTT Routine 05/05/2019 11:49 AM CAR DEALER PROTIME-INR Routine 05/05/2019 11:49 AM CAR DEALER BASIC METABOLIC PANEL Routine 05/05/2019 11:49 AM CAR DEALER documented in this encounter Results * (ABNORMAL) Basic metabolic panel (05/05/2019 11:49 AM CAR DEALER) Sodium 139 135 - 145 mmol/L [facility] Potassium 3.8 3.3 - 5.1 mmol/L [facility] Chloride 107 96 - 108 mmol/L [facility] Carbon Dioxide 22 22 - 32 mmol/L [facility] Anion Gap 10 7 - [address] [facility] Glucose 104(H) 70 - 100 mg/dL [facility] BUN 8 8 - 25 mg/dL [facility] Creatinine 0.8 0.5 - 1.3 mg/dL [facility] Comment: NOTE: Estimated GFR (Cockroft-Gault) will NOT be calculated unless patient Height and Weight were entered. Also, Kidney Disease Stage (GFR) and Estimated GFR (Cockroft-Gault) will NOT be calculated if Creatinine result is <0.2. Kidney Disease Stage >90 mL/MIN [facility] Comment: NOTE; ??The GFR is an estimated value using the creatinine, sex, age, and race of the patient. THE Estimated Kidney Disease GFR is validated for AGES 18-70 YEARS STAGE ?mL/Min ?DESCRIPTION ??1 ?90 mL/min or more ?Normal or elevated GFR ??2 ? 60-89 mL/min ?Mildly decreased GFR ??3 ? 30-59 mL/min ?Moderately decreased GFR ??4 ? 15-29 mL/min ?Severely decreased GFR ??5 ? <15 mL/min ? Kidney failure or on dialysis Calcium 9.4 8.6 - 10.3 mg/dL [facility] 05/05/2019 11:4 9 AM CAR DEALER 05/05/2019 12:05 PM CAR DEALER Narrative Resulting Agency Comment CLI Blair Cooley MD LAB BLOOD ORDERABLES Final R esult [facility] [address] [phone] * aPTT (05/05/2019 11:49 AM CAR DEALER) APTT 32 27 - [address] [facility] 05/05/2019 11:4 9 AM CAR DEALER 05/05/2019 12:05 PM CAR DEALER Narrative Resulting Agency Comment CLI Blair Cooley MD LAB BLOOD ORDERABLES Final R esult Performing Organization Address [facility]/ZIP Co de Phone Number [facility] [address] [phone] * Protime-INR (05/05/2019 11:49 AM CAR DEALER) Pathologist [facility] PT 13.1 12.2 - 14.[address] [facility] INR 0.[address] [facility] Comment: Recommended Therapeutic range for Oral Anticoagulant Therapy No anti-coagulation therapy ? Normal Range: ?0.8-1.4 Anti-coagulation therapy ? Low intensity therapy ?2.0-3.0 ? High intensity therapy ?? 2.5-3.5 Critical Value ? Greater than or equal to 5.0 Patients should be monitored for serious bleeding. 05/05/2019 11:4 9 AM CAR DEALER 05/05/2019 12:05 PM CAR DEALER Narrative Resulting Agency Comment CLI Blair Cooley MD LAB BLOOD ORDERABLES Final R [facility] Performing Organization Address [facility] Co de Phone Number [place] [address] [place] [address], [facility] [phone] * (ABNORMAL) CBC with auto differential (05/05/2019 11:49 AM CAR DEALER) Pathologist [facility] WBC 9.4 3.8 - 9.9 X10 3/ul [facility] RBC 4.62 4.30 - 5.80 x10 6/ul [facility] Hemoglobin 13.1 13.0 - 17.5 g/dL [facility] Hct 40.5 38.9 - 50.3 % [facility] MCV 87.7 81.3 - 96.[address] [facility] MCH 28.4 27.1 - 33.[address] [facility] MCHC 32.3 32.3 - 35.7 g/dl [facility] RDW 14.2 11.1 - 14.9 % [facility] Plt Count 292 150 - 400 x10 3/ul [facility] MPV 11.7 9.1 - 12.[address] [facility] Neut % 72.2 % [facility] Immature Gran % 0.4 % [facility] Lymph % 15.2 % [facility] Graham % 8.8 % [facility] Eos % 3.0 % [facility] AUTO BASO % 0.4 % [facility] NEUTROPHIL ABS # 6.8(H) 1.7 - 6.5 x10 3/ul [facility] Immature Gran # 0.0 0.0 - 0.1 x10 3/ul [facility] Absolute Lymphs (auto) 1.4 0.8 - 3.3 x10 3/ul [facility] Absolute Monos (auto) 0.8 0.2 - 0.8 x10 3/ul [facility] Absolute Eos (auto) 0.3 0.0 - 0.5 x10 3/ul [facility] BASOPHIL ABS # 0.0 0.0 - 0.1 x10 3/ul [facility] Nucleat RBC Rel Count 0.0 #/100WBC [facility] NRBC abs 0.00 0.00 - 0.01 x10 3/ul [facility] Absolute Neutrophils 6,800 200 - 8,000 /ul [facility] 05/05/2019 11:4 9 AM CAR DEALER 05/05/2019 12:05 PM CAR DEALER Narrative Resulting Agency Comment CLI us Blair Cooley MD LAB BLOOD ORDERABLES Final R esult [facility] [address] [phone] documented in this encounter Visit Diagnoses Not on filedocumented in this encounter Care Teams Admissions Manager Relationship Specialty Start Date End Date Clara Stanley PA [address] [place] [address] PCP - General Nurse Practitioner 04/05/19 documented as of this encounter
--- OUTSIDE RECORDS SUMMARY | 2024-03-02 03:49 | XMS_ITS | Encounter Summary ---
Author Organization [facility] Address [address] [facility] [address] [place] [address] Care Team Providers Care Glass Washer Name Role Phone Clara Stanley Primary Care Provider + Jasper Canchola MD Unavailable Alexis Lopez MD Unavailable Kip Del Rio MD Unavailable Jacob Flynn MD Unavailable [phone] Encounter Details Date Type Department Care Team (Late st Contact Info) Description 03/17/2019 Orders Only [facility] Health Information Management [address] [place] [address] Scanning, Provider Social History Tobacco Use Types Packs/Day Years Used Date Smoking Tobacco: Never Assessed Sex and Gender Information Value Date Recorded Sex Assigned at Not on file Legal Sex Male 1:17 AM TELEVISION RECEIVER ANALYZER Gender Identity Not on file Sexual Orientation [...] Name Priority Date/Time Associated Diagnosis Comments PULMONARY - RESULT SCAN 08/24/2019 SCAN - RADIOLOGY/IMAGING 03/17/2019 documented in this encounter Results * PULMONARY - RESULT SCAN (08/24/2019) Anatomical Region Laterality Modality Other us Provider Scanning Edited Result - Final * SCAN - RADIOLOGY/IMAGING (03/17/2019) Anatomical Region Laterality Modality Other us Provider Scanning Edited Result - Final documented in this encounter Visit Diagnoses Not on filedocumented in this encounter Care Teams Glass Washer Relationship Specialty Start Date End Date Clara Stanley PA [address] [place] [address] PCP - General Nurse Practitioner 04/05/19 Jasper Canchola MD [address] [place] [address] Surgeon Thoracic Surgery 05/11/19 Alexis Lopez MD [address] [address] Corporate Travel Agent Pulmonary Disease 05/11/19 Kip Del Rio MD [address] [facility] [address] [place] [address] Medical Oncologist/Self Defense Instructor Hematology and Oncology 05/11/19 Jacob Flynn MD [address] [facility] [address] [place] [address] Radiation Oncologist Radiation Oncology 05/25/19 documented as of this encounter
--- OUTSIDE RECORDS SUMMARY | 2024-03-02 03:49 | XMS_ITS | Encounter Summary ---
Author Organization [facility] Healthcare Address [address] [place] [address] Care Team Providers Care Consulting Psychologist Name Role Phone Clara Stanley Primary Care Provider + Encounter Details Date Type Department Care Team (Late st Contact Info) Description 05/06/2019 7:55 AM RADIO MAINTAINER - 05/06/2019 12:35 PM RADIO MAINTAINER Hospital Encounter [facility] OP INTERIM Blair Cooley MD [address] [facility] [address] [address] Discharge Disposition: Discharge to home or self care Social History Tobacco Use Types Packs/Day Years Used Date Smoking Tobacco: Never Smokeless Tobacco: Never Sex and Gender Information Value Date Recorded Sex Assigned at Not on file Legal Sex Male 1:17 AM RADIO MAINTAINER Gender Identity Not on file Sexual Orientation Straight 09/22/2019 8: 21 PM CDT documented as of this encounter Last Filed Vital Signs Vital Sign Reading Time Taken Comments Blood Pressure 126/72 05/05/2019 11:31 AM RADIO MAINTAINER Pulse 77 05/05/2019 11:31 AM RADIO MAINTAINER Temperature 36.6 ??C (97.8 ??F) 05/05/2019 1 1:31 AM RADIO MAINTAINER Respiratory Rate - - Oxygen Saturation 97% 05/05/2019 11: 31 AM RADIO MAINTAINER Inhaled Oxygen Concentration - - Weight 160.8 kg (354 lb 9.6 oz) 020 11:31 AM RADIO MAINTAINER Height 190.5 cm (6' 3 ) 05/05/2019 11:3 1 AM RADIO MAINTAINER Body Mass Index 44.32 05/05/2019 11:31 AM RADIO MAINTAINER documented in this encounter Medications at Time [...] Date/Time Associated Diagnosis Comments SCAN - PATHOLOGY 05/09/2019 12:0 0 AM RADIO MAINTAINER PROCEDURE - RESULT 05/06/2019 12 :00 AM RADIO MAINTAINER XR CHEST 1 VIEW 05/06/2019 12:00 AM RADIO MAINTAINER documented in this encounter Results * SCAN - PATHOLOGY (05/09/2019 12:00 AM RADIO MAINTAINER) Narrative 05/09/2019 12:00 AM RADIO MAINTAINER Ordered by an unspecified provider. us Historical Provider MD Final Res ult * PROCEDURE - RESULT (05/06/2019 12:00 AM RADIO MAINTAINER) Narrative 05/06/2019 12:00 AM RADIO MAINTAINER Ordered by an unspecified provider. us Historical Provider MD Final Res ult * XR Chest 1 View (05/06/2019 12:00 AM RADIO MAINTAINER) Anatomical Region Laterality Modality Body, Chest N/A Radiographic Trang ging 05/06/2019 11:2 3 AM RADIO MAINTAINER Narrative 05/06/2019 11:28 AM RADIO MAINTAINER Patient Name: KWAKU BULLOCK ?Ordering Dr: Blair Cooley MD ?? D.O.B: 1965 ? Exam Date: 05/06/19 ?? 0000 ?? Age: 53 ?Sex: Male ? MR#: [id number] ?? Loc: ? RADIOLOGY REPORT ?? Order #[id number] ?? Radiology ? Chest 1 View Portable ? Signed ?? EXAM DESCRIPTION: ??Chest 1 View Portable ? REASON FOR STUDY: ??S/P Bronchoscopy TODAY ? TECHNIQUE: ??Frontal radiographic view of the chest acquired. ? COMPARISON: ??PET-CT 05/03/2019 ? FINDINGS: ? LUNGS/PLEURA: No focal consolidation or pneumothorax. No pleural effusion. ? HEART/MEDIASTINUM: Heart size is normal. Normal mediastinal and hilar contours. ? HARDWARE/LINES/TUBES: None. ? BONES: No acute findings. ? OTHER: No other significant finding. ? IMPRESSION: ??No acute abnormality. ??No pneumothorax. ? THIS IS AN ELECTRONICALLY VERIFIED FINAL REPORT ?? 05/06/2019 11:28 AM - Electronically signed by Dimitry Benjamin M.D. ?? Dimitry Benjamin M.D. ? HL ?? D: ??05/06/2019 11:28 AM ?? T: ? Report ID: [id number] ?? Reading Location: ??[id number] ? REPORT ELECTRONICALLY SIGNED IN OTHER VENDOR SYSTEM ?? Resulting Agency Comment O Procedure Note Dimitry Benjamin MD - 05/06/2019 Patient Name: KWAKU BULLOCK Dr: Blair Cooley MD DKiyaO.B: 1965 Exam Date: 05/06/19 0000 Age: 53 Sex: Male MR#: [id number] Loc: [facility]#: [id number] RADIOLOGY REPORT Order #[id number] Radiology Chest 1 View Portable Signed EXAM DESCRIPTION: Chest 1 View Portable REASON FOR STUDY: S/P Bronchoscopy TODAY TECHNIQUE: Frontal radiographic view of the chest acquired. COMPARISON: PET-CT 05/03/2019 FINDINGS: LUNGS/PLEURA: No focal consolidation or pneumothorax. No pleuraleffusion. HEART/MEDIASTINUM: Heart size is normal. Normal mediastinal and hilarcontours. HARDWARE/LINES/TUBES: None. BONES: No acute findings. OTHER: No other significant finding. IMPRESSION: No acute abnormality. No pneumothorax. THIS IS AN ELECTRONICALLY VERIFIED FINAL REPORT 05/06/2019 11:28 AM - Electronically signed by Dimitry Benjamin M.D. T: Report ID: [id number] Reading Location: [place] [address] REPORT ELECTRONICALLY SIGNED IN OTHER VENDOR SYSTEM Blair Cooley MD IMG XR PROCEDURES Final Resu lt documented in this encounter Visit Diagnoses Not on filedocumented in this encounter Care Teams Consulting Psychologist Relationship Specialty Start Date End Date Clara Stanley PA [address] [place] [address] PCP - General Nurse Practitioner 04/05/19 documented as of this encounter
--- OUTSIDE RECORDS SUMMARY | 2024-03-02 03:49 | XMS_ITS | Encounter Summary ---
Author Organization [facility] Healthcare Address [address] [place] [address] Care Team Providers Care Control Panel Operator Name Role Phone Clara Stanley Primary Care Provider + Encounter Details Date Type Department Care Team (Late st Contact Info) Description 05/10/2019 11:58 AM GAS PROVER Hospital Encounter [facility] OP INTERIM Alexis Lopez MD [address] [facility] [address] [address] Social History Tobacco Use Types Packs/Day Years Used Date Smoking Tobacco: Never Smokeless Tobacco: Never Sex and Gender Information Value Date Recorded Sex Assigned at Not on file Legal Sex Male 1:17 AM GAS PROVER Gender Identity Not on file Sexual Orientation [...] filedocumented in this encounter Care Teams Control Panel Operator Relationship Specialty Start Date End Date Clara Stanley PA [address] [place] [address] PCP - General Nurse Practitioner 04/05/19 documented as of this encounter
--- OUTSIDE RECORDS SUMMARY | 2024-03-02 03:49 | XMS_ITS | Encounter Summary ---
Author Organization [facility] Healthcare Address [address] [place] [address] Care Team Providers Care Admiralty Lawyer Name Role Phone Clara Stanley Primary Care Provider + Encounter Details Date Type Department Care Team (Latest Contact Info) Description 05/10/2019 10:36 AM MOHS SURGEON/GENERAL DERMATOLOGIST Hospital Encounter [facility] [address] [place] [id number] Diagnosis unknown Discharge Disposition: Discharge to home or self care Social History Tobacco Use Types Packs/Day Years Used Date Smoking Tobacco: Never Smokeless Tobacco: Never Sex and Gender Information Value Date Recorded Sex Assigned at Not on file Legal Sex Male 1:17 AM MOHS SURGEON/GENERAL DERMATOLOGIST Gender Identity Not on file Sexual Orientation [...] Date/Time Associated Diagnosis Comments CT BODY OUTSIDE CONSULT Routine 05/10/2019 10:36 AM MOHS SURGEON/GENERAL DERMATOLOGIST Diagnosis unknown documented in this encounter Results * CT Body Outside Consult (05/10/2019 10:36 AM MOHS SURGEON/GENERAL DERMATOLOGIST) Anatomical Region Laterality Modality Body N/A Computed Tomogra phy 05/10/2019 11:2 0 AM MOHS SURGEON/GENERAL DERMATOLOGIST Impressions 05/10/2019 12:51 PM MOHS SURGEON/GENERAL DERMATOLOGIST Lobulated right lower lobe nodule with associated satellite nodules, air trapping and subcarinal lymphadenopathy consistent with biopsy proven high grade neuroendocrine tumor. The findings, conclusions and recommendations within this report do not replace the initial findings, conclusions ??and recommendations made at the facility where the study was performed based upon the imaging and clinical condition at that time. ??Comparison with the prior report and clinical history is necessary. ??The provided images may or may not represent the [place] source data set and thus may contain changes that may lower the accuracy of this second-opinion interpretation. Dictated by: Wong Butts M.D. The radiology attending physician has personally reviewed this study, and had reviewed and/or edited this written report and agrees with it. Electronically signed by: Alexander Ceron M.D., MPH Narrative 05/10/2019 12:51 PM MOHS SURGEON/GENERAL DERMATOLOGIST EXAMINATION: RADIOLOGY CONSULTATION ON OUTSIDE IMAGING STUDY STUDY INITIALLY PERFORMED: 04/04/2019 and 04/22/2019 at [facility]. TYPE OF STUDY: Multiple CT images of the chest, abdomen and pelvis with intravenous contrast are provided at the time of this interpretation. CONTRAST ROUTE: Contrast was administered via the intravenous route. The protocol was adequate to address the clinical question. The outside final report was not available at the time of this second opinion interpretation. TYPE OF CONSULTATION: Consult on outside imaging study with images submitted through [facility] DATE OF CONSULTATION: 05/10/2019 11:03 AM HISTORY: Pulmonary nodule COMPARISON: None available. FINDINGS: CHEST: There is a 1.6 x 1.5 cm lobulated nodule in the medial right lower lobe (slice 61). ??There is associated mild air trapping and satellite lesions. ??No pleural effusions or pneumothorax. No axillary, supraclavicular, or hilar lymphadenopathy. ??There is a partially calcified subcarinal lymph node. ??Heart size is normal without pericardial effusion. ??There are minimal coronary artery calcifications. ??Aortic arch is normal in caliber. Thyroid is normal. Trachea is patent. ??Esophagus is normal. Abdomen and pelvis: The liver is normal in size and morphology without any suspicious lesions. ??The spleen, gallbladder and common bile duct are normal. Portal, splenic and superior mesenteric veins are patent. ??The stomach and duodenum are normal. The adrenal glands normal bilaterally. ??The kidneys enhance symmetrically without hydronephrosis. ??Urinary bladder is normal. Prostate gland is normal. The colon is normal in size with mild diverticulosis. ??There are post surgical changes of appendectomy. ??No small bowel wall thickening or obstruction. ??There is no retroperitoneal, pelvic or mesenteric lymphadenopathy. ??There is mild atherosclerosis of the abdominal vasculature. ??No free fluid or gas. Bone windows demonstrate no suspicious lytic or blastic osseous lesions. Procedure Note Alexander Ceron MD - 05/10/2019 EXAMINATION: RADIOLOGY CONSULTATION ON OUTSIDE IMAGING STUDY STUDY INITIALLY PERFORMED: 04/04/2019 and 04/22/2019 at [facility]. TYPE OF STUDY: Multiple CT images of the chest, abdomen and pelvis with intravenous contrast are provided at the time of this interpretation. CONTRAST ROUTE: Contrast was administered via the intravenous route. The protocol was adequate to address the clinical question. The outside final report was not available at the time of this second opinion interpretation. TYPE OF CONSULTATION: Consult on outside imaging study with images submitted through [facility] DATE OF CONSULTATION: 05/10/2019 11:03 AM HISTORY: Pulmonary nodule COMPARISON: None available. FINDINGS: CHEST: There is a 1.6 x 1.5 cm lobulated nodule in the medial right lower lobe (slice 61). There is associated mild air trapping and satellite lesions. No pleural effusions or pneumothorax. No axillary, supraclavicular, or hilar lymphadenopathy. There is a partially calcified subcarinal lymph node. Heart size is normal without pericardial effusion. There are minimal coronary artery calcifications. Aortic arch is normal in caliber. Thyroid is normal. Trachea is patent. Esophagus is normal. Abdomen and pelvis: The liver is normal in size and morphology without any suspicious lesions. The spleen, gallbladder and common bile duct are normal. Portal, splenic and superior mesenteric veins are patent. The stomach and duodenum are normal. The adrenal glands normal bilaterally. The kidneys enhance symmetrically without hydronephrosis. Urinary bladder is normal. Prostate gland is normal. The colon is normal in size with mild diverticulosis. There are post surgical changes of appendectomy. No small bowel wall thickening or obstruction. There is no retroperitoneal, pelvic or mesenteric lymphadenopathy. There is mild atherosclerosis of the abdominal vasculature. No free fluid or gas. Bone windows demonstrate no suspicious lytic or blastic osseous lesions. IMPRESSION: Lobulated right lower lobe nodule with associated satellite nodules, air trapping and subcarinal lymphadenopathy consistent with biopsy proven high grade neuroendocrine tumor. The findings, conclusions and recommendations within this report do not replace the initial findings, conclusions and recommendations made at the facility where the study was performed based upon the imaging and clinical condition at that time. Comparison with the prior report and clinical history is necessary. The provided images may or may not represent the [place] source data set and thus may contain changes that may lower the accuracy of this second-opinion interpretation. Dictated by: Wong Butts M.D. The radiology attending physician has personally reviewed this study, and had reviewed and/or edited this written report and agrees with it. Electronically signed by: Alexander Ceron M.D., MPH Jasper Canchola MD IMG CT PROCEDURES Final R esult documented in this encounter Visit Diagnoses Diagnosis Diagnosis unknown documented in this encounter Care Teams Admiralty Lawyer Relationship Specialty Start Date End Date Clara Stanley PA [address] [place] [phone] PCP - General Nurse Practitioner 04/05/19 documented as of this encounter
--- OUTSIDE RECORDS SUMMARY | 2024-03-02 03:49 | XMS_ITS | Encounter Summary ---
Author Organization [facility] Facility Care Team Providers Care Wheel Molder Name Role Phone Clara Stanley Primary Care Provider + Encounter Details Date Type Department Care Team (Latest Contact Info) Description 05/04/2019 Travel Social History Tobacco Use Types Packs/Day Years Used Date Smoking Tobacco: Never Smokeless Tobacco: Never Sex and Gender Information Value Date Recorded Sex Assigned at Not on file Legal Sex Male 1:17 AM BEAVER TRAPPER Gender Identity Not on file Sexual Orientation Straight 09/22/2019 8: 21 PM CDT documented as of this encounter Plan of Treatment Not on file documented as of this encounter Visit Diagnoses Not on filedocumented in this encounter Care Teams Wheel Molder Relationship Specialty Start Date End Date Clara Stanley PA [address] [place] [phone] PCP - General Nurse Practitioner 04/05/19 documented as of this encounter
--- OUTSIDE RECORDS SUMMARY | 2024-03-02 03:49 | XMS_ITS | Encounter Summary ---
Author Organization [facility] Address [address] [place] [address] Care Team Providers Care Community Service Coordinator Name Role Phone Clara Stanley Primary Care Provider + Encounter Details Date Type Department Care Team (Late st Contact Info) Description 04/05/[address] [facility] Pulmonology [address] [facility] [address] [place] [phone] Alexis Lopez MD [address] [facility] [address] [place] [address] Social History Tobacco Use Types Packs/Day Years Used Date Smoking Tobacco: Never Assessed Sex and Gender Information Value Date Recorded Sex Assigned at Not on file Legal Sex Male 1:17 AM AIRCRAFT ENGINEER Gender Identity Not on file Sexual Orientation Straight 09/22/2019 8: 21 PM CDT documented as of this encounter Miscellaneous Notes * Telephone Encounter - Anju Salgado - 04/05/2019 2:27 PM CST Apt made with patient RAFT ENGINEER * Telephone Encounter - Alexis Lopez MD - 04/05/2019 9:00 AM AIRCRAFT ENGINEER Okay with me to see patient within the next 2-3 weeks. RAFT ENGINEER * Telephone Encounter - Anju Salgado - 04/05/2019 8:30 AM CST The patients called and stated she is the daughter of Hermilo Lee which is a patient of yours. The patient recently has a CT done and they found a pulmonary nodule. She was wanting to know if you would take her on as a new patient. She will having the CT report sent over from [facility]. Faith [phone] RAFT ENGINEER documented in this encounter Plan of Treatment Not on file documented as of this encounter Visit Diagnoses Not on filedocumented in this encounter Care Teams Community Service Coordinator Relationship Specialty Start Date End Date Clara Stanley PA [address] [place] [phone] PCP - General Nurse Practitioner 04/05/19 documented as of this encounter
--- OUTSIDE RECORDS SUMMARY | 2024-03-02 03:49 | XMS_ITS | Encounter Summary ---
Author Organization [facility] Address [address] [place] [address] Care Team Providers Care Warehousing Technician Name Role Phone Clara Stanley Primary Care Provider + Reason for Referral * Diagnostic Imaging (Routine) - Closed Specialty Diagnoses / Procedures Referred By Erik [email or web address] Referred To Contact Diagnoses Right lower lobe pulmonary nodule Procedures PET/CT FDG Skull to Thigh Alexis Lopez MD [facility] [facility] [facility] [place] [address] Phone: tel: fax: [address] [phone] fax: Referral ID Status Reason Start Date Expiration Date Visits Re quested Visits Authorized [id number] Closed 04/27/2019 11/05/2020 2 2 DISPATCHER Reason for Visit * Reason Comments New Patient Encounter Details Date Type Department Care Team (Late st Contact Info) Description 04/27/2019 9:15 AM AIR DISPATCHER Office Visit [facility] Pulmonology [address] [facility] [address] [place] [phone] Alexis Lopez MD [address] [facility] [address] [facility] [place] [address] Right lower lobe pulmonary nodule (Primary Dx) Social History Tobacco Use Types Packs/Day Years Used Date Smoking Tobacco: Never Smokeless Tobacco: Never Sex and Gender Information Value Date Recorded Sex Assigned at Not on file Legal Sex Male 1:17 AM AIR DISPATCHER Gender Identity Not on file Sexual Orientation Straight 09/22/2019 8: 21 PM CDT documented as of this encounter Last Filed Vital Signs Vital Sign Reading Time Taken Comments Blood Pressure 130/86 04/27/2019 9:20 AM AIR DISPATCHER Pulse 78 04/27/2019 9:20 AM AIR DISPATCHER Temperature - - Respiratory Rate 18 04/27/2019 9:20 AM AIR DISPATCHER Oxygen Saturation 98% 04/27/2019 9:20 AM AIR DISPATCHER Inhaled Oxygen Concentration - - Weight 160.6 kg (354 lb) 04/27/2019 9:20 AM AIR DISPATCHER Height 190.5 cm (6' 3 ) 04/27/2019 9:20 AM AIR DISPATCHER Body Mass Index 44.25 04/27/2019 9:20 AM AIR DISPATCHER documented in this encounter Progress Notes * Alexis Lopez MD - 04/27/2019 9:15 AM CST Consultation Note Patient: Kwaku Kulkarni ( - 1965) is a 53 y.o. male. Visit Date: 04/27/2019 I am seeing this patient in consultation, requested by KALPANA Sarmiento Chief Complaint Patient presents with ??? New Patient History of Present Illness: The patient is a 53-year-old male that has never smoked that was referred here for evaluation of anabnormal chest CT. The patient was found to have idiopathic intracranial hypertension which presented as headaches. He was taking copious amounts of ibuprofen and then developed abdominal pain. The abdominal pain prompted a abdominal CT which revealed a right lower lobe nodule. It measured 1.7 cm on the abdominal CT. This then prompted a chest CT which confirmed a 1.3 cm nodule in the right lowerlobe. The chest CT also revealed subcu 6 mm nodules in the right middle lobe. The patient's parentssmoked and he does live in a home with a basement. His sister also recently had a lung cancer resected and she never smoked. He denies any respiratory complaints. 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 Past Medical History: Past Medical History: Diagnosis Date ??? IIH (idiopathic intracranial hypertension) Surgical History: Past Surgical History: Procedure Laterality Date ??? APPENDECTOMY Current Medications: Current Outpatient Medications Medication Sig Dispense Refill ??? acetaZOLAMIDE ER (DIAMOX SEQUAL) 500 mg capsule Take 500 mg by mouth 2 (two) times a day ??? amLODIPine (NORVASC) 10 mg tablet ??? cetirizine (ZyrTEC) 10 mg tablet Take 10 mg by mouth daily ??? omeprazole (PriLOSEC) 40 mg capsule Take 40 mg by mouth 2 times daily ??? pravastatin (PRAVACHOL) 20 mg tablet ??? sucralfate (CARAFATE) 1 gram tablet TK 1 T PO BEFORE MEALS AND AT BEDTIME No current facility-administered medications for this visit. Allergies: No Known Allergies Family History: Family History Problem Relation Age of Onset ??? Cancer Mother ??? Heart disease Father ??? Cancer Father Social History: Social History Socioeconomic History ??? Marital status: Spouse name: None ??? Number of children: None ??? Years of education: None ??? Highest education level: None Occupational History ??? None Social Needs ??? Financial resource strain: None ??? Food insecurity: Worry: None Inability: None ??? Transportation needs: Medical: None Non-medical: None Tobacco Use ??? Smoking status: Never Smoker ??? Smokeless tobacco: Never Used Substance and Sexual Activity ??? Alcohol use: None ??? Drug use: None ??? Sexual activity: None Lifestyle ??? Physical activity: Days per week: None Minutes per session: None ??? Stress: None Relationships ??? Social connections: Talks on phone: None Gets together: None Attends faith service: None Active member of club or organization: None Attends meetings of clubs or organizations: None Relationship status: None ??? Intimate partner violence: Fear of current or ex partner: None [...] and leg swelling. Gastrointestinal: Positive for abdominal pain. Negative for diarrhea and nausea. Genitourinary: Negative for hematuria. Musculoskeletal: Negative for arthralgias, back pain and myalgias. Skin: Negative for color change. Allergic/Immunologic: Negative for environmental allergies and food allergies. Neurological: Positive for headaches. Negative for dizziness and light-headedness. Physical Exam: Vitals: 04/27/19 0920 BP: 130/86 Pulse: 78 Resp: 18 SpO2: 98% Weight: (!) 160.6 kg (354 lb) Height: 190.5 cm (6' 3 ) [...] Diagnoses and all orders for this visit: Right lower lobe pulmonary nodule (Primary) - Pulmonary Function Test -[facility]; Full PFT in PFT Lab, Stress Ox/6 Min Walk Test; Future Rendering Provider & Department: Alexis Lopez MD DISPATCHER documented in this encounter Miscellaneous Notes * Assessment & Plan Note - Alexis Lopez MD - 04/27/2019 9:57 AM AIR DISPATCHER Associated Problem(s): Right lower lobe pulmonary nodule (Deleted) I will order a PET scan and full PFTs for the patient he will follow-up here in 1 week. DISPATCHER documented in this encounter Plan of Treatment Not on file documented as of this encounter Visit Diagnoses Diagnosis Right lower lobe pulmonary nodule- Primary documented in this encounter Historical Medications * This list may reflect changes made after this encounter. amLODIPine (NORVASC) 10 mg tabletIndications: hypertension Take 1 tablet (10 mg total) by mouth every morning 04/10/2019 acetaZOLAMIDE ER (DIAMOX SEQUAL) 500 mg capsuleIndications :idiopathic intracranial hypertension Take 500 mg by mouth 2 (two) times a day 1 cetirizine (ZyrTEC) 10 mg tabletIndications: Seasonal Allergic Rhinitis Take 10 mg by mouth every morning 2 omeprazole (PriLOSEC) 40 mg capsule Take 40 mg by mouth 2 times daily 0 sucralfate (CARAFATE) 1 gram tablet TK 1 T PO BEFORE MEALS AND AT BEDTIME 04/12/2019 0 pravastatin (PRAVACHOL) 20 mg tabletIndications: hyperlipidemia Take 1 tablet (20 mg total) by mouth every morning 04/10/2019 4 added in this encounter Orders Imaging Orders Without Results Count Last Order ed Date First Ordered Date PET/CT FDG SKULL TO THIGH 1 04/27/2019 documented in this encounter Care Teams Warehousing Technician Relationship Specialty Start Date End Date Clara Stanley PA [address] [place], [place] [phone] PCP - General Nurse Practitioner 04/05/19 documented as of this encounter
--- OUTSIDE RECORDS SUMMARY | 2024-03-02 03:49 | XMS_ITS | Encounter Summary ---
Author Organization [facility] Healthcare Address [address] [place] [address] Care Team Providers Care Word Processor Technician Name Role Phone Clara Stanley Primary Care Provider + Encounter Details Date Type Department Care Team (Latest Contact Info) Description 05/10/2019 10:37 AM DISHCLOTH FOLDER - 05/10/2019 11:57 AM DISHCLOTH FOLDER Hospital Encounter [facility] [address] [place] [id number] Diagnosis unknown Discharge Disposition: Discharge to home or self care Social History Tobacco Use Types Packs/Day Years Used Date Smoking Tobacco: Never Smokeless Tobacco: Never Sex and Gender Information Value Date Recorded Sex Assigned at Not on file Legal Sex Male 1:17 AM DISHCLOTH FOLDER Gender Identity Not on file Sexual Orientation [...] Comments CT BODY OUTSIDE CONSULT Routine 05/10/2019 10:37 AM DISHCLOTH FOLDER Diagnosis unknown documented in this encounter Results * CT Body Outside Consult (05/10/2019 10:37 AM DISHCLOTH FOLDER) Anatomical Region Laterality Modality Body N/A Computed Tomogra phy 05/10/2019 11:2 0 AM DISHCLOTH FOLDER Impressions 05/10/2019 12:51 PM DISHCLOTH FOLDER Lobulated right lower lobe nodule with associated [...] images may or may not represent the [place] source data set and thus may contain changes that may lower the accuracy of this second-opinion interpretation. Dictated by: Wong Butts M.D. The radiology attending physician has personally reviewed this study, and had reviewed and/or edited this written report and agrees with it. Electronically signed by: Alexander Ceron M.D., MPH Narrative 05/10/2019 12:51 PM DISHCLOTH FOLDER EXAMINATION: RADIOLOGY CONSULTATION ON OUTSIDE IMAGING STUDY STUDY INITIALLY PERFORMED: 04/04/2019 and 04/22/2019 at [facility]. TYPE OF STUDY: Multiple CT images of [...] STUDY INITIALLY PERFORMED: 04/04/2019 and 04/22/2019 at [facility]. TYPE OF STUDY: Multiple CT images of [...] images may or may not represent the [place] source data set and thus may contain [...] unknown documented in this encounter Care Teams Word Processor Technician Relationship Specialty Start Date End Date Clara Stanley PA [address] [place] [phone] PCP - General Nurse Practitioner 04/05/19 documented as of this encounter
--- OUTSIDE RECORDS SUMMARY | 2024-03-02 03:49 | XMS_ITS | Encounter Summary ---
Author Organization [facility] Address [address] [place] [address] Care Team Providers Care Caster Helper Name Role Phone Clara Stanley Primary Care Provider + Reason for Visit * Reason Comments Follow-up PET Encounter Details Date Type Department Care Team (Late st Contact Info) Description 05/04/2019 12:00 PM OIL OPERATOR Office Visit [facility] Pulmonology [address] [place] [id number] Blair Cooley MD [address] [facility] [facility] [address] [place] [address] Right lower lobe pulmonary nodule (Primary Dx) Social History Tobacco Use Types Packs/Day Years Used Date Smoking Tobacco: Never Smokeless Tobacco: Never Sex and Gender Information Value Date Recorded Sex Assigned at Not on file Legal Sex Male 1:17 AM OIL OPERATOR Gender Identity Not on file Sexual Orientation Straight 09/22/2019 8: 21 PM CDT documented as of this encounter Last Filed Vital Signs Vital Sign Reading Time Taken Comments Blood Pressure 172/91 05/04/2019 11:31 AM OIL OPERATOR Pulse 71 05/04/2019 11:31 AM OIL OPERATOR Temperature 36.7 ??C (98 ??F) 05/04/2019 11:31 AM OIL OPERATOR Respiratory Rate 16 05/04/2019 11:31 AM OIL OPERATOR Oxygen Saturation 99% 05/04/2019 11:31 AM OIL OPERATOR Inhaled Oxygen Concentration - - Weight 159.7 kg (352 lb) 05/04/2019 11:31 AM OIL OPERATOR Height 190.5 cm (6' 3 ) 05/04/2019 11:31 AM OIL OPERATOR Body Mass Index 44 05/04/2019 11:31 AM OIL OPERATOR documented in this encounter Progress Notes * Blair Cooley MD - 05/04/2019 12:00 PM CST Patient: Kwaku Kulkarni ( - 1965) is a 53 y.o. male. Visit Date: 05/04/2019 Chief Complaint Patient presents with ??? Follow-up PET History of Present Illness: 53-year-old gentleman, lifelong nonsmoker, history of lung cancer in sister/non- smoker, recent diagnosis of right lower lobe lung nodule for which he underwent a PET scan which was reported as abnormal with PET avid mediastinal adenopathy, right lower lobe nodule. He has been referred by his call or contact centre coach for bronchoscopic evaluation/EBUS. Generally feels well. Denies any symptoms. No fever. No sputum production. No dyspnea at rest. No history of snoring. The patient's medications, last visit note, relevant labs and imaging studies (independent review of images and reports) were reviewed and updated. Review of systems: All other review of systems reviewed & negative except as outlined above in the history of present illness. Past Medical History: Past Medical History: Diagnosis Date ??? IIH (idiopathic intracranial hypertension) Medications: Current Outpatient Medications Medication Sig Dispense [...] No current facility-administered medications for this visit. Review of Systems: Constitutional: Awake, alert, no acute distress. Negative for activity change, appetite change, fever. HENT: Negative for congestion, postnasal drip, rhinorrhea, sinus pain, sinus pressure and sore throat. Eyes: Negative for visual disturbance. Respiratory: Please refer to history of present illness for details for details Cardiovascular: Negative for chest pain and leg swelling. Gastrointestinal: Negative for abdominal pain. Endocrine: Negative for cold intolerance and heat intolerance. Musculoskeletal: Negative for arthralgias and myalgias. Skin: Negative for color change and rash. Extremities: No edema Allergic/Immunologic: Negative for environmental allergies and food allergies. Neurological: Negative for dizziness, speech difficulty, weakness, numbness and headaches. Psychiatric/Behavioral: Negative for confusion and sleep disturbance. Physical Exam: Vitals: 05/04/19 1131 BP: (!) 172/91 Pulse: 71 Resp: 16 Temp: 36.7 ??C (98 ??F) SpO2: 99% Weight: (!) 159.7 kg (352 lb) Height: 190.5 cm (6' 3 ) Constitutional: Oriented to person, place and time. Vital signs are normal. Head: Normocephalic and atraumatic. Eyes: Pupils are equal, round, and reactive to light. EOM are normal. ENT: Patent nares, nasal mucosa no inflammation, posterior pharyngeal wall no drainage Neck: Trachea normal and normal range of motion. Neck supple. Cardiovascular: Normal rate, regular rhythm and normal heart sounds. Pulmonary/Chest: Effort normal and breath sounds normal. No Wheezing or crackles. Abdominal: Soft. Normal appearance and bowel sounds are normal. Musculoskeletal: Normal range of motion. Neurological: He is alert and oriented to person, place and time. No gross focal deficit Skin: Skin is warm, dry and intact. Psychiatric: Normal mood and affect. Speech is normal and behavior is normal. Joints: No gross deformities. Extremities: No edema Gait: Not assessed. Data, labs, imaging, records reviewed personally and interpreted: Labs: CBC w/auto diff: No results found for: WBC, RBC, HGB, HCT, MCV, MCH, MCHC, MPV, NRBC, NRBCABS BMP results: No results found for: SODIUM, POTASSIUM, CO2, BUNSER, GLUCOSE, CREATININE, CALCIUM, CHLORIDE PET scan including images reviewed, images also shown to the patient and . Right lower lobe nodule measures 1.3 cm with an SUV of 3.3. Subcarinal lymph node is partially calcified measuring 2.6 x2.5 cm with an SUV of 7.3. Uptake also noted in the prostate. Assessment: Diagnoses and all orders for this visit: Right lower lobe pulmonary nodule (Primary) Assessment continued: ?? Indeterminate right lower lobe pulmonary nodule with PET avid subcarinal lymph node. SUV 7.3. Partial calcification also noted. Differential includes malignancy/bronchogenic carcinoma versus granulomatous disease / histoplasmosis followed by other etiologies ?? Lifelong nonsmoker ?? Obesity ?? Family history of lung cancer in sister Plan: Patient requires bronchoscopy including EBUS for further evaluation of abnormal PET scan findings. Bronchoscopy procedure was explained to the patient. Rationale for the procedure was discussed in detail. Risks and benefits were reviewed. Complications including but not limited to complications related to anesthesia, sedation, medications administered during the procedure, local airway trauma, infection, bleeding, pneumothorax, cardiopulmonary compromise, respiratory complications including but not limited to respiratory failure which may require ventilator support, potential hospital/ICU stay, cardiac complications including but not limited to myocardial infarction, arrhythmias, need for further interventions and additional procedures was explained to the patient. The fact that these pro cedures can rarely be life threatening including was explained to the patient. Patient understands the risks and benefits and wishes to proceed. Will schedule bronchoscopy for ThursdayMay 06 at 9:45 a.m.. Check CBC, BMP, INR Patient will follow with his call or contact centre coach post bronchoscopy for further management Note dictated on Hospital line. # [id number] Rendering Provider & Department: Blair Cooley MD THIS NOTE WAS CREATED IN PART WITH THE ASSISTANCE OF [employer] VOICE RECOGNITION SOFTWARE. LEAF CONDITIONER VARIANCES MAY OCCUR. OPERATOR documented in this encounter Plan of Treatment Not on file documented as of this encounter Visit Diagnoses Diagnosis Right lower lobe pulmonary nodule- Primary documented in this encounter Care Teams Caster Helper Relationship Specialty Start Date End Date Clara Stanley PA [address] [place] [id number] PCP - General Nurse Practitioner 04/05/19 documented as of this encounter
--- OUTSIDE RECORDS SUMMARY | 2024-03-02 03:56 | XMS_ITS | Continuity of Care Document ---
Author Organization [facility] Address [address] [facility] [place] [address] Phone Care Team Providers Care Enthone Solder Stripper Name Role Phone Paulino Amador MD Unavailable Unavailable Medications Medication Instructions Dosage Effective Dates (start - stop) Status Comments Ryaltris 665 mcg-25 mcg/spray nasal spray spray 2 spray by intranasal route 2 times every day in each nostril 2.00 spray - Active Trelegy Ellipta 100 mcg-62.5 mcg-25 mcg powder for inhalation Inhale 1 puff daily - Active fluticasone propionate 50 mcg/actuation nasal spray,suspension Administer 2 sprays into each nostril daily - Active albuterol sulfate HFA 90 mcg/actuation aerosol inhaler Inhale 2 puffs every 6 (six) hours as needed for wheezing Fill per patient's formulary - Active amlodipine 10 mg tablet Take 1 tablet (10 mg total) by mouth every morning - Active pravastatin 20 mg tablet Take 1 tablet (20 mg total) by mouth every morning - Active montelukast 10 mg tablet Take 1 tablet (10 mg total) by mouth nightly - No Longer Active pantoprazole 40 mg tablet,delayed release Take 1 tablet (40 mg total) by mouth daily - No Longer Active fexofenadine 180 mg tablet Take 1 tablet (180 mg total) by mouth daily - No Longer Active nitroglycerin 0.[address] 1 tablet (0.4 mg total) under the tongue every 5 (five) minutes as needed - No Longer Active Procedures Procedure Date Est (Level 4) OFFICE/OUTPATIENT VISIT Oc Perc Test Intradermal Test New (Level 4) OFFICE/OUTPATIENT VISIT Ju CERTIFIED HEALTH EDUCATION SPECIALIST Registration Fee Advance Directives Directive Yes / No Effective Date File Name No Information Encounters Encounter Description Practice Location Reason(s) For Visit Diagnoses Date Provider Providers Copied on Encounter Est (Level 4) OFFICE/OUTPA TIENT VISIT [facility], [address] [place] [address], [id number], tel:[phone] [facility] asthma (chief complaint) Body mass index (BMI) 45.0-49.9, adultSevere persistent asthmaGERD w/o esophagitisChron ic rhinitis 3 Marjor[address]. [address] [place], [place], [facility], [place]. tel:[phone] Referring Provider: Annette Leung [facility] [address], [place], [place], [facility]. tel:[phone] New (Level 4) OFFICE/OUTPA TIENT VISIT [facility], [address] [place] [address], [id number], tel:[phone] [facility] cough (chief complaint) Body mass index (BMI) 40.0-44.9, adultCough, unspecifiedSever e persistent asthmaChronic rhinitisGERD w/o esophagitis 3 Mar[address]. [address], [place], [place], [facility], . tel:[phone] Referring Provider: Annette Leung [facility] [address], [place], [place], [facility]. tel:[phone] [facility], [address] [place] [address], [id number], tel:[phone] 7[address] [facility] No Information [facility] Prov. . Referring Provider: Paulino Amador, [address], [place], [address]. tel:[phone] Family History Family Member Type Diagnosis Age At Onset No Information Payers Payer name Insurance type Covered republican ID Radha ramos(s) [facility] [id number] Social History Type Description Quantity Date Captured Comments Alcohol Use Details Unknown Caffeine Use Details Unknown Tobacco Use Status Current non-smoker Smoking Status Never smoker Non-Smoking Tobacco Use Details : No Details Available : No Details Available Sex Male Vital Signs Date / Time: Height Weight BMI Pulse Rate Blood Pressure Temperature Respiratory Rate Body Surface Area Head Circumference Head Circ. Percentile Wt./[place]. Percentile BMI percentile Pulse Ox Inhaled Ox 10:27 AM 75.00 in 166.922 kg (368.00 lbs) 46.0 0 kg/m eter (2) 75 /min 132/88 mm[Hg] 98.00 F 2.97 meter(2) 99 % Chief Complaint And Reason For Visit From encounter dated '12/30/2022 10:20'. asthma (chief complaint). Description: LV: 09/10/22He has asthma, GERD, and mixed rhinitis. He presents for follow up.AsthmaHe is on Trelegy 100/62.5/25 ?cg 1 puff daily, montelukast (singulair) 10 mg daily. He has albuterol PRN (not used much at all).His symptoms have improved since our last visit. No nocturnal awakenings with cough or wheeze. His exertional symptoms have improved (though limited now by broken foot as below). No interval ED visits nor any oral steroid bursts since our last visit. RhinitisHe was on Ryaltris 2 SEN BID. He did not stick with it. His symptoms are fine without the medication.GERDHe is on pantoprazole 40 mg daily. He recently suffered a Valentine fracture. Consideration for surgery forthcoming. He is going [facility] [email or web address] next week.DataPercutaneous allergytesting on 09/10/22 was positive for Bermuda grass, cockroach, cat, and dog with positive histamine and negative diluent controls. Intradermal testing was positive for grasses and house dust mite (Dp)with a negative diluent control10/14/22Abs Eos IgE 26.2 Reason For Referral Reason For Referral No Information History Of Present Illness Encounter Date Complaint History Of Prese nt Illness asthma LV: 09/10/22He conti s asthma, GERD, and mixed rhinitis. He presents for follow up.AsthmaHe is on Trelegy 100/62.5/25 ?cg 1 puff daily, montelukast (singulair) 10 mg daily. He has albuterol PRN (not used much at all).His symptoms have improved since our last visit. No nocturnal awakenings with cough or wheeze. His exertional symptoms have improved (though limited now by broken foot as below). No interval ED visits nor any oral steroid bursts since our last visit. RhinitisHe was on Ryaltris 2 SEN BID. He did not stick with it. His symptoms are fine without the medication.GERDHe is on pantoprazole 40 mg daily. He recently suffered a Valentine fracture. Consideration for surgery forthcoming. He is going to [email or web address] next week.DataPercutaneous allergy testing on 09/10/22 was positive for [place] grass, cockroach, cat, and dog with positive histamine and negative diluent controls. Intradermal testing was positive for grasses and house dust mite (Dp) with a negative diluent control10/14/22Abs Eos IgE 26.2 cough Chronic CoughHe reports a long history of cough. He notes initially his symptoms were seasonal (in spring). In 2019, he was diagnosed with lung cancer. During the recovery process, he developed dyspnea. He was diagnosed with asthma shortly after.AsthmaThe patient has asthma on Trelegy 100/62.5/25 ?cg 1 puff daily, montelukast (singulair) 10 mg qHS, and albuterol PRN (used infrequently, though recently had a URI and has had increased use x 2 weeks - about 2-3 times per day). The patient has never been hospitalized for asthma. Currently, they have no exertional limitations 2/2 cough (including walking up a flight of stairs). They deny nocturnal awakenings with cough/wheeze. One recent UC visit in the last 2 weeks requiring oral steroid burst. He has concomitant LEONOR on CPAP (though admits he has trouble with adherence). He [facility] with [facility] Pulmonology Trinity Encarnacion NP.RhinitisThe patient has a history of perennial rhinitis without seasonal worsening. The symptoms include rhinorrhea (ant/posterior), cough and sneezing w/o ocular pruritus and tearing. Currently, the patient is on montelukast (singulair) 10 mg qHS and fexofenadine (juan) 180 mg daily (held x 7 days), plus Flonase 2 SEN daily PRN which does not provide adequate relief. The patient does not have a history of sinus infections.He recalls allergy testing within the last 3 years, which he believes was negative.He has GERD on protonix 40 mg daily.PMH: lung cancer, HLD, HTNPSH: R lung lobectomy, appendectomyMedication Allergies: NKDANo FH of asthma, rhinitis, RA, SLE, thyroid diseaseSHTobacco: Never smokerOccupation: sales recruiting coordinator for chemical manufacturerEnvironmental HistoryLives in a house (built 1994) w/ central air/forced heat, w/o evidence of mold/water damageFlooring in Bedroom: carpetPets: dog x 1DataI reviewed outside records available in the EMR06/06/22IgE 26.2 Functional Status Date Functional Assessmen t No Information Instructions Date Instruction Additional Infor eduardo Giving encouragement to exercise Related to Body mass index [BMI] 45.0-49.9, adult - go to the lab for a blood draw; please do this 1 month after last dose of oral steroids Related to Severe persistent asthma - start Ryaltris 2 s prays each nostril twice daily in place of Flonase; I sent Ryaltris to the mail order pharmacy- continue montelukast and juan daily- Please remember to point the nasal spray away from the nasal septum, up and outwards towards the top of the ears on both sides- if nose bleeding occurs, please hold the nasal spray for 2-3 days to allow for healing of the nasal tissue (you may use nasal saline gel or vaseline on a q-tip to help heal the tissue), then restart the nasal spray.- If nose bleeding recurs, please stop the nasal spray and contact our office to set up an appointment for further guidance Related to Chronic rhinitis Giving encouragement to exercise Related to Body mass index [BMI] 40.0-44.9, adult Assessments Type Assessment Date assessment Body mass index (BMI) 45.0-49.9, adult assessment Severe persistent asthma 2022 assessment GERD w/o esophagitis assessment Chronic rhinitis Patient Care Teams Name Effective Dates (start - stop) Status Members No Information
--- OUTSIDE RECORDS SUMMARY | 2024-03-02 03:57 | XMS_ITS | Referral Summary ---
Author Organization [facility] Address [address] [place] [address] Care Team Providers Care Service Associate Name Role Phone Clara Stanley APRN-HAND SEWER Primary Care Provider Source Comments [facility],non-owned Affiliates and Associated Physician Practices is amultiple site organization consisting of ambulatory clinics and hospital sitesin [place], [place], [place] and [place]. This disclosure is being madepursuant to the Care Everywhere program and may not contain all information available regarding this patient. Last updated 17.[facility] Allergies No known active allergies Medications * [...] fluticasone propionate (FLONASE) 50 MCG/ACT nasal spray [place] 2 sprays into each nostril 2 times daily Active budesonide-formote rol (SYMBICORT) 160-4.5 MCG/ACT inhaler Inhale 2 Inhalers by mouth 2 times daily Active albuterol HFA (PROVENTIL;VENTOLI N;PROAIR) 108 (90 Base) MCG/ACT inhaler INL 2 PFS PO Q 4 H PRN 07/27/2019 Active Ascorbic Acid 1000 MG Take 1,000 mg by mouth once daily Active Cholecalciferol 1.25 MG (32709 UT) Take 50,000 Units by mouth Active [...] (02/23/2020): Added automatically from request for surgery [id number] Last Assessment & Plan: The patient's cough [...] (02/23/2020): Added automatically from request for surgery [id number] Last Assessment & Plan: -54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 Diet: ADAT Pain control: Epidural, D/c'd RANCH RIDER. 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 Added automatically from request for surgery [id number] Added automatically from request for surgery [id number] Last Assessment & Plan: I will order [...] Comments Blood Pressure 136/79 03/25/2019 7:49 AM WINDOWS DEPLOYMENT TECHNICIAN Pulse 78 03/25/2019 7:49 AM WINDOWS DEPLOYMENT TECHNICIAN Temperature 36.9 ??C (98.4 ??F) 03/25/2019 7:49 AM CS T Respiratory Rate 18 03/25/2019 7:49 AM WINDOWS DEPLOYMENT TECHNICIAN Oxygen Saturation 100% 03/25/2019 7:49 AM WINDOWS DEPLOYMENT TECHNICIAN Inhaled Oxygen Concentration - - Weight 160.1 kg (353 lb) 04/15/2019 4:11 PM WINDOWS DEPLOYMENT TECHNICIAN Height 190.5 cm (6' 3 ) 03/23/2019 10:50 AM WINDOWS DEPLOYMENT TECHNICIAN Body Mass Index 44.12 03/23/2019 10:50 AM WINDOWS DEPLOYMENT TECHNICIAN Functional Status Functional Status Response Date of [...] PANEL (CALCIUM TOTAL) Routine 03/25/2019 3:45 AM WINDOWS DEPLOYMENT TECHNICIAN Acute nonintractable headache, unspecified headache type HIV-1 HIV-2 ANTIGEN/ANTIBODY Routine 03/24/2019 5:17 PM WINDOWS DEPLOYMENT TECHNICIAN Aseptic meningitis (HCC) from Last 3 Months or Most Recently Relevant to Health Maintenance Results * (ABNORMAL) BASIC METABOLIC PANEL (CALCIUM TOTAL) (03/25/2019 3:45 AM WINDOWS DEPLOYMENT TECHNICIAN) BUN 10 7 - 26 mg/dL 03/25/2019 4:[address] [facility] Creatinine 0.8 0.6 - 1.2 mg/dL 03/25/2019 4:[address] [facility] Sodium 132(L) 136 - 145 mmol/L 03/25/2019 4:37 AM [facility] Potassium 3.4(L) 3.5 - 4.5 mmol/L 03/25/2019 4:37 AM [facility] Chloride 102 98 - 107 mmol/L 03/25/2019 4:37 AM [facility] CO2 21(L) 22 - 29 mmol/L 03/25/2019 4:37 AM [facility] Glucose 101 70 - 115 mg/dL 03/25/2019 4:37 AM [facility] Calcium 9.6 8.4 - 10.2 mg/dL 03/25/2019 4:37 AM [facility] Anion Gap 12 8 - 18 03/25/2019 4:37 AM [facility] BUN/Creatinine Ratio 13 7 - 23 03/25/2019 4:37 AM [facility] Osmolality Calculated 273 270 - 300 mOsm/kg 03/25/2019 4:37 AM [facility] eGFR >60 >60 mL/min/1.7 3 m2 03/25/2019 4:37 AM [facility] Blood BLOOD SPECIMEN / Unknown Lab Venipuncture / Unknown 03/25/2019 3:45 AM WINDOWS DEPLOYMENT TECHNICIAN 03/25/2019 4:08 AM WINDOWS DEPLOYMENT TECHNICIAN Terrell Campbell MD LAB - CHEMISTRY ORD ERABLES Performing Organization Address [facility]/State/ZIP Co de Phone Number [facility] [address] [place] [address] * HIV-1 HIV-2 ANTIGEN/ANTIBODY (03/24/2019 5:17 PM WINDOWS DEPLOYMENT TECHNICIAN) HIV Antigen/Antibod y 1 & 2 Non-reacti ve Non-react lanette 03/24/2019 6:06 PM [facility] Comment: Neither HIV-1 p24 Antigen nor HIV-1/HIV-2 Antibodies are detected. ? Blood BLOOD SPECIMEN / Unknown Lab Venipuncture / Unknown 03/24/2019 5:17 PM WINDOWS DEPLOYMENT TECHNICIAN 03/24/2019 5:27 PM WINDOWS DEPLOYMENT TECHNICIAN Terrell Campbell MD LAB - HEMATOLOGY OR DERABLES [facility] [address] [place] [address], [facility] [phone] from Last 3 Months or Most Recently Relevant to Health Maintenance Advance Directives * Full Code (Latest Code Status on File) Date Activated Date Inactivated Comments 03/24/2019 11:57 AM 03/25/2019 1:07 PM * Full Code Date Activated Date Inactivated Comments 12/05/2014 9:17 PM 12/06/2014 11:29 AM Care Teams Service Associate Relationship Specialty Start Date End Date Clara Stanley, ACTIVITIES THERAPIST-HAND SEWER [address] [place] [id number] PCP - General Nurse Practitioner 03/23/19
--- OUTSIDE RECORDS SUMMARY | 2024-03-02 03:57 | XMS_ITS | Clinical Summary ---
Author Organization [facility] Address [address] [place] [address] Care Team Providers Care Storage Garage Manager Name Role Phone Clara Stanley APRN-AUTO SERVICE REPRESENTATIVE Primary Care Provider Source Comments [facility],non-owned Affiliates and Associated Physician Practices is amultiple site organization consisting of ambulatory clinics and hospital sitesin [place], [place], [place] and [place]. This disclosure is being madepursuant to the Care Everywhere program and may not contain all information available regarding this patient. Last updated 17.[facility] [place] Allergies No known active allergies Medications * [...] fluticasone propionate (FLONASE) 50 MCG/ACT nasal spray Loda 2 sprays into each nostril 2 times daily Active budesonide-formote rol (SYMBICORT) 160-4.5 MCG/ACT inhaler Inhale 2 Inhalers by mouth 2 times daily Active albuterol HFA (PROVENTIL;VENTOLI N;PROAIR) 108 (90 Base) MCG/ACT inhaler INL 2 PFS PO Q 4 H PRN 07/27/2019 Active Ascorbic Acid 1000 MG Take 1,000 mg by mouth once daily Active Cholecalciferol 1.25 MG (40038 UT) Take 50,000 Units by mouth Active [...] (02/23/2020): Added automatically from request for surgery [id number] Last Assessment & Plan: The patient's cough [...] (02/23/2020): Added automatically from request for surgery [id number] Last Assessment & Plan: -54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 Added automatically from request for surgery [id number] Added automatically from request for surgery [id number] Last Assessment & Plan: I will order [...] Comments Blood Pressure 136/79 03/25/2019 7:49 AM RETAIL CASHIER ASSOCIATE Pulse 78 03/25/2019 7:49 AM RETAIL CASHIER ASSOCIATE Temperature 36.9 ??C (98.4 ??F) 03/25/2019 7:49 AM CS T Respiratory Rate 18 03/25/2019 7:49 AM RETAIL CASHIER ASSOCIATE Oxygen Saturation 100% 03/25/2019 7:49 AM RETAIL CASHIER ASSOCIATE Inhaled Oxygen Concentration - - Weight 160.1 kg (353 lb) 04/15/2019 4:11 PM RETAIL CASHIER ASSOCIATE Height 190.5 cm (6' 3 ) 03/23/2019 10:50 AM RETAIL CASHIER ASSOCIATE Body Mass Index 44.12 03/23/2019 10:50 AM RETAIL CASHIER ASSOCIATE Plan of Treatment Health Maintenance Due Date [...] PANEL (CALCIUM TOTAL) Routine 03/25/2019 3:45 AM RETAIL CASHIER ASSOCIATE Acute nonintractable headache, unspecified headache type HIV-1 HIV-2 ANTIGEN/ANTIBODY Routine 03/24/2019 5:17 PM RETAIL CASHIER ASSOCIATE Aseptic meningitis (HCC) from Last 3 Months or Most Recently Relevant to Health Maintenance Results * (ABNORMAL) BASIC METABOLIC PANEL (CALCIUM TOTAL) (03/25/2019 3:45 AM RETAIL CASHIER ASSOCIATE) BUN 10 7 - 26 mg/dL 03/25/2019 4:37 AM [facility] Creatinine 0.8 0.6 - 1.2 mg/dL 03/25/2019 4:37 AM [facility] Sodium 132(L) 136 - 145 mmol/L 03/25/2019 4:37 AM [facility] Potassium 3.4(L) 3.5 - 4.5 mmol/L 03/25/2019 4:37 AM [facility] Chloride 102 98 - 107 mmol/L 03/25/2019 4:37 AM [facility] CO2 21(L) 22 - 29 mmol/L 03/25/2019 4:37 AM [facility] Glucose 101 70 - 115 mg/dL 03/25/2019 4:37 AM [facility] Calcium 9.6 8.4 - 10.2 mg/dL 03/25/2019 4:37 AM [facility] Anion Gap 12 8 - 18 03/25/2019 4:37 AM [facility] BUN/Creatinine Ratio 13 7 - 23 03/25/2019 4:37 AM [facility] Osmolality Calculated 273 270 - 300 mOsm/kg 03/25/2019 4:37 AM [facility] eGFR >60 >60 mL/min/1.7 3 m2 03/25/2019 4:37 AM [facility] Blood BLOOD SPECIMEN / Unknown Lab Venipuncture / Unknown 03/25/2019 3:45 AM RETAIL CASHIER ASSOCIATE 03/25/2019 4:08 AM RETAIL CASHIER ASSOCIATE Terrell Campbell MD LAB - CHEMISTRY ORD ERABLES [facility] [address] [phone] * HIV-1 HIV-2 ANTIGEN/ANTIBODY (03/24/2019 5:17 PM RETAIL CASHIER ASSOCIATE) HIV Antigen/Antibod y 1 & 2 Non-reacti ve Non-react lanette 03/24/2019 6:06 PM RETAIL CASHIER ASSOCIATE [facility] Comment: Neither HIV-1 p24 Antigen nor HIV-1/HIV-2 Antibodies are detected. ? Blood BLOOD SPECIMEN / Unknown Lab Venipuncture / Unknown 03/24/2019 5:17 PM RETAIL CASHIER ASSOCIATE 03/24/2019 5:27 PM RETAIL CASHIER ASSOCIATE Terrell Campbell MD LAB - HEMATOLOGY OR DERABLES [address] [phone] from Last 3 Months or Most Recently Relevant to Health Maintenance Advance Directives * Full Code (Latest Code Status on File) Date Activated Date Inactivated Comments 03/24/2019 11:57 AM 03/25/2019 1:07 PM * Full Code Date Activated Date Inactivated Comments 12/05/2014 9:17 PM 12/06/2014 11:29 AM Care Teams Storage Garage Manager Relationship Specialty Start Date End Date Clara Stanley, BUDGET OFFICER-AUTO SERVICE REPRESENTATIVE [address] [place] [id number] PCP - General Nurse Practitioner 03/23/19
--- OUTSIDE RECORDS SUMMARY | 2024-03-02 03:57 | XMS_ITS | Continuity of Care Document ---
Author Organization [facility] Address [address] [place] [address] Phone Care Team Providers Care General Duty Nurse Name Role Phone Paulino Amador MD Unavailable [...] wheezing Fill per patient's formulary - Active pravastatin 20 mg tablet Take 1 tablet (20 mg total) by mouth every morning - Active amlodipine 10 mg tablet Take 1 tablet (10 mg total) by mouth every morning - Active fexofenadine 180 mg tablet Take 1 tablet (180 mg total) by mouth daily - No Longer Active pantoprazole 40 mg tablet,delayed release Take 1 tablet (40 mg total) by mouth daily - No Longer Active montelukast 10 mg tablet Take 1 tablet (10 mg total) by mouth nightly - No Longer Active nitroglycerin 0.[address] 1 tablet (0.4 mg total) under the tongue every 5 (five) minutes as needed - No Longer Active Procedures Procedure Date Est (Level 4) OFFICE/OUTPATIENT VISIT Oc Perc Test Intradermal Test New (Level 4) OFFICE/OUTPATIENT VISIT Ju INDUSTRIAL MANUFACTURING TECHNICIAN Registration Fee Advance Directives Directive Yes / No Effective Date File Name No Information Encounters Encounter Description Practice Location Reason(s) For Visit Diagnoses Date Provider Providers Copied on Encounter Est (Level 4) OFFICE/OUTPA TIENT VISIT [facility], [address] [place] [address], [id number], tel:[phone] [facility] [place] [place] asthma (chief complaint) Body mass index (BMI) 45.0-49.9, adultSevere persistent asthmaGERD w/o esophagitisChron ic rhinitis 3 [address] [place], [place], [facility], [place]. tel:[phone] Referring Provider: Annette Leung [facility] [address], [place], [place], [facility]. tel:[phone] New (Level 4) OFFICE/OUTPA TIENT VISIT [facility], [address] [place] [address], [id number], tel:[phone] [facility] [place] [place] cough (chief complaint) Body mass index (BMI) 40.0-44.9, adultCough, unspecifiedSever e persistent asthmaChronic rhinitisGERD w/o esophagitis [address], [place], [facility], . tel:[phone] Referring Provider: Annette Leung [facility] [address], [place], [facility]. tel:[phone] [facility], [address] [place] [address], [id number], tel:[phone] [facility] [place] [place] No Information [facility] [place] Prov. . Referring Provider: Paulino Amador, [address], [place], [address]. tel:[phone] Family History Family Member Type Diagnosis Age At Onset No Information Payers Payer name Insurance type Covered libertarian ID Radha ramos(s) [facility] CI [id number] Social History Type Description Quantity Date Captured [...] for surgery forthcoming. He is going to [facility] next week.DataPercutaneous allergytesting on 09/10/22 was positive [...] for surgery forthcoming. He is going to [facility] next week.DataPercutaneous allergy testing on 09/10/22 was [...] has trouble with adherence). He follows with [facility] Pulmonology Trinity Encarnacion NP.RhinitisThe patient has a [...] rhinitis, RA, SLE, thyroid diseaseSHTobacco: Never smokerOccupation: director underwriter sales for chemical manufacturerEnvironmental HistoryLives in a house [...]
--- OUTSIDE RECORDS SUMMARY | 2024-03-02 03:58 | XMS_ITS | Encounter Summary ---
Author Organization [facility] Address [facility] [place] [address] Care Team Providers Care Awnings Mechanic Name Role Phone LizethClara byrd Ricardo BARBER TOOL SHARPENER-BENCH ASSEMBLY INSPECTOR Primary Care Provider Reason for Visit * Reason Comments Consultation Encounter Details Date Type Department Care Team (Late st Contact Info) Description 11/24/2019 9:30 AM CDT Office Visit [facility] [place] [phone] Nevin Marshall MD No information available Papilledema [...] Montez MD - 11/24/2019 11:13 AM CDT [facility] Ophthalmology Located at: [facility] Medicine Ophthalmology [address] [place] [phone] Your Visit from 11/24/2019 Follow up Appointment: [...] thesemedicines. Phone Number: Weekdays (8am-5pm) - Call [phone] () Evenings, Weekends, or Holidays: Call [phone] and dial [phone] for the grid casting machine operator helper. Ask to speak to the eye doctor yard goods salesperson. They will connect us. documented in this [...] Primary documented in this encounter Care Teams Awnings Mechanic Relationship Specialty Start Date End Date Clara Stanley, BARBER TOOL SHARPENER-BENCH ASSEMBLY INSPECTOR [address] [place] [address] PCP - General Nurse Practitioner 03/23/19 documented as of this encounter
--- OUTSIDE RECORDS SUMMARY | 2024-03-02 03:58 | XMS_ITS | Encounter Summary ---
Author Organization [facility] Address [facility] [facility] [place] [address] Care Team Providers Care Feeder Associate Name Role Phone LizethClara byrd Ricardo LAUNCH OPERATOR-FITNESS LEADER Primary Care Provider Reason for Visit * Reason Onset Date Comments Low Back Pain 03/25/2019 Encounter Details Date Type Department Care Team (Late st Contact Info) Description 03/25/2019 Telephone [facility] [address] [place] [address] Matteo Sebastian MD [address] [place] [address] Low Back Pain Social History Tobacco Use [...] weeks. Matteo Sebastian MD 04/03/2019 10:48 AM DIRECTOR documented in this encounter Plan of Treatment Not on file documented as of this encounter Visit Diagnoses Not on filedocumented in this encounter Care Teams Feeder Associate Relationship Specialty Start Date End Date Clara Stanley, LAUNCH OPERATOR-FITNESS LEADER [address] [place] [id number] PCP - General Nurse Practitioner 03/23/19 documented as of this encounter
--- OUTSIDE RECORDS SUMMARY | 2024-03-02 03:58 | XMS_ITS | Encounter Summary ---
Author Organization [facility] Address [address] [place] [address] Care Team Providers Care Water Commissioner Name Role Phone Clara Stanley Ricardo CARE TAKER-SNOW TECHNICIAN Primary Care Provider Reason for Visit * Reason Comments Pain Head pt c/o constant head ache, worse at night. pt at ED at [facility] thurs, WBC was elevated, headache has gotten worse, neck stiffness. * Auth/Cert Specialty Diagnoses / Procedures Referred By Erik [email or web address] Referred To Contact Referral ID Status Reason Start Date Expiration Date Visits Re quested Visits Authorized [id number] 1 1 Encounter Details Date Type Department Care Team (Late st Contact Info) Description 03/23/2019 11:17 AM ADMITTING COORDINATOR - 03/25/2019 12:02 PM [facility] Emergency [address] [address] Kevin Meng MD [address] [facility] [place] [address] Parviz Hsu MD [address] [facility] [place] [address] Chi Valdez MD [address] [facility] [place] [id number] Keri Wood MD [address] [facility] [address] [place] [address] Emergency Medicine Discharge Disposition: Home [...] Comments Blood Pressure 136/79 03/25/2019 7:49 AM ADMITTING COORDINATOR Pulse 78 03/25/2019 7:49 AM ADMITTING COORDINATOR Temperature 36.9 ??C (98.4 ??F) 03/25/2019 7:49 AM CS T Respiratory Rate 18 03/25/2019 7:49 AM ADMITTING COORDINATOR Oxygen Saturation 100% 03/25/2019 7:49 AM ADMITTING COORDINATOR Inhaled Oxygen Concentration - - Weight 165.6 kg (365 lb) 03/23/2019 10:50 AM ADMITTING COORDINATOR Height 190.5 cm (6' 3 ) 03/23/2019 10:50 AM ADMITTING COORDINATOR Body Mass Index 45.62 03/23/2019 10:50 AM ADMITTING COORDINATOR documented in this encounter Functional Status Functional [...] Physician Discharge Summary Patient ID: Kwaku Kulkarni [id number] 53 year old 1965 Admit date: 03/23/2019 [...] Signed: Terrell Campbell MD 03/25/2019 10:21 AM TTING COORDINATOR documented in this encounter Discharge Instructions * Discharge Instructions* Estrellita Santamaria RN - 03/25/2019 11:27 AM ADMITTING COORDINATOR Patient Education Acetazolamide (By mouth) Acetazolamide (s-emmg-i-ZOLE-a-mide) Treats glaucoma, epilepsy, mountain sickness, and edema [...] pharmacist before using any other medicine, including zsei-grp-obyieil medicines, vitamins, and herbal products. ?? Make sure your doctor knows if you are taking aspirin, amphetamines (Dexedrine??), quinidine, ormethenamine (Mandelamine??). Warnings While Using This Medicine: ?? Check with your doctor before taking if you have lung, kidney, or liver disease, diabetes, gout,or a poorly working adrenal gland (Campbell's disease). ?? Talk with your doctor before [...] may report side effects to FDA at 6-994-EGI-5779 ?? Copyright [employer] 2019 Information is for End User's use only and may not be sold, redistributed or otherwise used for commercial purposes. The above information is an educational paraprofessional only. It is not intended as medical advice for individual conditions or treatments. Talk to your doctor, nurse or pharmacist before following any medical regimen to see if it is safe and effective for you. Patient Education Topiramate (By mouth) Topiramate (abk-EZH-j-mate) Treats and prevents seizures, and helps prevent [...] pharmacist before using any other medicine, including yeul-yzs-vunqbur medicines, vitamins, and herbal products. ?? Do [...] may report side effects to FDA at 1-099-VCN-5397 ?? Copyright [employer] 2019 Information is for End User's use only and may not be sold, redistributed or otherwise used for commercial purposes. The above information is an educational paraprofessional only. It is not intended as medical advice for individual conditions or treatments. Talk to your doctor, nurse or pharmacist before following any medical regimen to see if it is safe and effective for you. TTING COORDINATOR documented in this encounter Medications at Time [...] No other needs identified Jen Townsend RN [phone] Care Coordination Nurse Water Filtration Technician TTING COORDINATOR * Jen Townsend RN - 03/25/2019 11:49 AM CST A Chart Review has been conducted by Case Management. Anticipated level of care at discharge: Home Discharge Plan: Home Basic Needs Assessment (BNA) Score: 7 Anticipated Discharge Date: 03/25/19 PCP: WILIAN Nunn Per nursing assessments: Alert and orientated. Met with pt and wifePt reports adequate support to assist with recovery Transportation (who): Glass Engraver/Support: Anna Glass Engraver person: Anna Home/Functional Status: Functional and Cognitive [...] For any questions or needs please contact: [phone] Water Filtration Technician Name/Phone number: Jen Townsend RN TTING COORDINATOR * Keri Wood MD - 03/25/2019 10:53 [...] CT abnormality. Dictated by Kwaku Bañuelos MD (vice president of engineering). I, Dr. JESSI OLEA have personally reviewed [...] at L4-5. Dictated by Kwaku Bañuelos MD (vice president of engineering). This report was approved by Kwaku Bañuelos [...] home today ?? Keri Wood M.D Attending TTING COORDINATOR * Dagoberto Garner - 03/24/2019 12:13 PM [...] UA Slt Cloudy Clear, Slt Cloudy Specific [place] UA 1.005 1.005 - 1.030 pH UA [...] with Attending Physician, Dr. Israel Garner MS3 TTING COORDINATOR documented in this encounter Consult Notes * Ayala Schultz E - 03/24/2019 11:18 AM CST [facility] Infectious Diseases Consultation Patient Name: Kwaku Kulkarni 1965 Room: [address] [place], [place] [address] Date of Admission: 03/23/2019 Date of Service: 03/24/2019 Primary Care Physician: Clara Stanley APRN-SNOW TECHNICIAN Attending Physician: Keri Wood MD Reason for consultation: possible meningitis, antibiotic recommendations HPI: Mr. Kwaku Kulkarni is a 53 year old male with PMH HTN, HLD who presented to [facility] on 03/23/2019 for chronic headache. The patient [...] and lightheadedness, so he came to the [facility] ED on 03/23. Head CT, MRI were [...] input(s): PT, INR, PTT in the last 27924 hours. CSF: Fluid color: colorless Fluid clarity: [...] abnormality. ?? Dictated by Kwaku Bañuelos MD (vice president of engineering). ?? I, Dr. JESSI OLEA have personally [...] with PMH HTN, HLD who presented to [facility] with headache of 1 month duration. #Headache [...] Ayala Schultz, MS4 Infectious Disease (Team 1) TTING COORDINATOR * Justina Phillips MD - 03/24/2019 11:08 AM CST [facility] Infectious Diseases Consultation Patient Name: Kwaku Kulkarni 1965 Room: [facility] Date of Admission: 03/23/2019 Date of Service: 03/24/2019 Primary Care Physician: Clara Stanley APRN-RAEANN Attending Physician:Chi Valdez MD Reason for ID consultation: possible meningits SUBJECTIVE & INTERVAL HISTORY: Kwaku Kulkarni is a 53 year old male H HTN, HLD who presented to [facility] on 03/23/2019 for chronic headache. The patient [...] and lightheadedness, so he came to the [facility] ED on 03/23. Head CT, MRI were [...] drugs/IV drug use: Denies ?? Travel Hx: [facility] [place] in 01/[facility], [place] for 2 [...] input(s): PT, INR, PTT in the last 40672 hours. MICROBIOLOGY: 03/24 CSF: Fluid color: colorless [...] Justina Phillips M.D. Infectious Diseases Team 1 TTING COORDINATOR Associated attestation - Zeeshan Gross MD - 03/24/2019 5:21 PM ADMITTING COORDINATOR I have seen and examined the patient with the housekeeper nanny and I agree with the findings and [...] facial tingling, nausea, vomiting, lightheadedness.He presented to [facility] ED for this. CT was reportedly negative, [...] with chest pain or palpitations. Recently visited lookout in January, no insect bites or febrile [...] Dr. Israel Campbell MD PGY-3, Pediatric Neurology TTING COORDINATOR Associated attestation - Keri Wood MD - 03/24/2019 1:13 PM ADMITTING COORDINATOR Attending note: Pt was seen and evaluated [...] procedure and its findings. Kwaku Bañuelos MD Plug And Mold Finisher 03/24/19 9:10 AM TTING COORDINATOR documented in this encounter ED Notes * Swati Kramer RN - 03/24/2019 8:00 AM CST Patient transported to procedure room TTING COORDINATOR * Chi Valdez MD - 03/24/2019 6:00 [...] Chi Valdez Date: 03/24/2019 Time: 11:58 AM TTING COORDINATOR * Imelda Fuller RN - 03/24/2019 5:44 AM CST Patient resting with eyes closed, even unlabored breathing, VSS, no requests at this time. NAD noted. Will hold medication until PT is awake. TTING COORDINATOR * Imelda Fuller RN - 03/24/2019 5:25 AM CST Pt stating that his back is becoming increasingly painful. Pt states he is unable to rest. TTING COORDINATOR * Imelda Fuller RN - 03/24/2019 3:50 AM CST PT has IV in right writ. Pt stating that IV site is currently throbbing. Pt states that the IV is making it increasingly hard to rest, IV site changed. TTING COORDINATOR * Imelda Fuller RN - 03/24/2019 2:00 AM CST PT stating that his WARD is continuing. MD aware TTING COORDINATOR * Stevie Petersen MD - 03/24/2019 12:07 [...] They are okay with transferring pt to [facility]. Clinical Impression: 1. Acute nonintractable headache, [...] personal performance and is accurate and complete. TTING COORDINATOR * Imelda Meng RN - 03/23/2019 11:34 PM CST Bed: 35 Expected date: Expected time: Means of arrival: Comments: BEATRIZ Kulkarni TTING COORDINATOR * Parviz Hsu MD - 03/23/2019 2:45 PM CST ASSUMED CARE NOTE Patient signed out to me by Dr. Meng at 2:00 PM. Briefly, Kwaku Kulkarni is a 53 year old morbidly-obese male is being evaluated for WRAD. Patient states WARD has been intermittent for 1.5 months. Last , patient went to [facility] for WARD; CT wasnegative, white count [...] direction and in the presence of Dr. Hus. Signed: Mu Foote. I, Dr. Hsu, personally performed the services described in this documentation. All medical record entries made by the scribe were at my direction and in my presence. I have reviewed the chart and agree that the record reflects my personal performance and is accurate and complete. TTING COORDINATOR * Kevin Meng MD - 03/23/2019 12:09 [...] file Gets together: Not on file Attends scientologist service: Not on file Active member of [...] CT abnormality. Dictated by Kwaku Bañuelos MD (vice president of engineering). I, Dr. JESSI OLEA have personally reviewed [...] personal performance and is accurate and complete. TTING COORDINATOR * Shannon Littlejohn RN - 03/23/2019 10:59 AM CST Mask placed on patient in triage. TTING COORDINATOR * Sima Velazquez PA-C - 03/23/2019 10:49 [...] sxs. Pt was seen at ER in [place] last week for similar sxs. Flu negative. EKG, CT unremarkable. WBC elevated. PCP yesterday rechecked labs, WBC 16. Started on Cefdinir yesterday. HRRR. LCTAB. PERRLA. Oropharynx clear. Radial pulses 2+. VSS. TTING COORDINATOR documented in this encounter Plan of Treatment Not on file documented as of this encounter Procedures Procedure Name Priority Date/Time Associated Diagnosis Comments CARDIAC EKG ORDER 04/14/2019 3:1 1 PM ADMITTING COORDINATOR SYPHILIS ANTIBODY CASCADING REFLEX Routine 03/25/2019 10:30 AM ADMITTING COORDINATOR Aseptic meningitis (HCC) CBC W AUTO DIFFERENTIAL Routine 03/25/2019 3:45 AM ADMITTING COORDINATOR Acute nonintractable headache, unspecified headache type BASIC METABOLIC PANEL (CALCIUM TOTAL) Routine 03/25/2019 3:45 AM ADMITTING COORDINATOR Acute nonintractable headache, unspecified headache type PHOSPHORUS BLOOD Routine 03/25/2019 3:45 AM ADMITTING COORDINATOR Acute nonintractable headache, unspecified headache type MAGNESIUM BLOOD Routine 03/25/2019 3:45 AM ADMITTING COORDINATOR Acute nonintractable headache, unspecified headache type HIV-1 HIV-2 ANTIGEN/ANTIBODY Routine 03/24/2019 5:17 PM ADMITTING COORDINATOR Aseptic meningitis (HCC) FL LUMBAR PUNCTURE STAT 03/24/2019 9: 18 AM ADMITTING COORDINATOR Acute nonintractable headache, unspecified headache type MANUAL DIFFERENTIAL REVIEWED STAT 03/24/2019 8:53 AM ADMITTING COORDINATOR Acute nonintractable headache, unspecified headache type CULTURE CSF+GRAM STAIN STAT 03/24/2019 8:53 AM ADMITTING COORDINATOR Acute nonintractable headache, unspecified headache type DIFFERENTIAL MANUAL FLUID STAT 03/24/2019 8:53 AM ADMITTING COORDINATOR Acute nonintractable headache, unspecified headache type GRAM STAIN (LAB ORDERED) STAT 03/24/2019 8:53 AM ADMITTING COORDINATOR Acute nonintractable headache, unspecified headache type CULTURE CSF+GRAM STAIN STAT 03/24/2019 8:53 AM ADMITTING COORDINATOR Acute nonintractable headache, unspecified headache type CELL COUNT W DIFFERENTIAL CSF STAT 03/24/2019 8:53 AM ADMITTING COORDINATOR Acute nonintractable headache, unspecified headache type PROTEIN CSF STAT 03/24/2019 8:53 AM ADMITTING COORDINATOR Acute nonintractable headache, unspecified headache type GLUCOSE CSF STAT 03/24/2019 8:53 AM ADMITTING COORDINATOR Acute nonintractable headache, unspecified headache type CRYPTOCOCCUS ANTIGEN CSF STAT 03/24/2019 8:50 AM ADMITTING COORDINATOR Aseptic meningitis (HCC) ENTEROVIRUS PCR CSF STAT 03/24/2019 8 :50 AM ADMITTING COORDINATOR Aseptic meningitis (HCC) HERPES SIMPLEX 1+2 PCR CSF STAT 03/24/2019 8:50 AM ADMITTING COORDINATOR Aseptic meningitis (HCC) EKG 12-LEAD Routine 03/23/2019 11:49 PM ADMITTING COORDINATOR Acute nonintractable headache, unspecified headache type BLOOD GASES ALEX STAT 03/23/2019 11:04 PM ADMITTING COORDINATOR MRI ANGIO BRAIN VENOUS WWO CONT STAT 03/23/2019 8:34 PM ADMITTING COORDINATOR Acute nonintractable headache, unspecified headache type MRI BRAIN WWO CONTRAST STAT 03/23/2019 8:33 PM ADMITTING COORDINATOR Acute nonintractable headache, unspecified headache type URINALYSIS W/MICROSCOPIC NO CULTURE STAT 03/23/2019 2:06 PM ADMITTING COORDINATOR CBC W AUTO DIFFERENTIAL STAT 03/23/2019 12:23 PM ADMITTING COORDINATOR COMPREHENSIVE METABOLIC PANEL STAT 03/23/2019 12:[address] HEAD WO CONTRAST STAT 03/23/2019 1 1:36 AM ADMITTING COORDINATOR Acute nonintractable headache, unspecified headache type documented in this encounter Results * CARDIAC EKG ORDER (04/14/2019 3:11 PM ADMITTING COORDINATOR) Narrative 04/14/2019 3:11 PM ADMITTING COORDINATOR Ordered by an unspecified provider. Scanned Document CARDIAC SERVICES ORD ERABLES * SYPHILIS ANTIBODY CASCADING REFLEX (03/25/2019 10:30 AM ADMITTING COORDINATOR) Treponema pallidum Antibody Non-react lanette Non-react lanette 03/25/2019 12:01 PM [facility] Comment: No Laboratory evidence of syphilis infection. ?? Note: ??Circulating antibodies may be low or undetectable in early infection. ??If recent exposure is suspected, re-draw sample in 2-4 weeks and repeat testing. Blood BLOOD SPECIMEN / Unknown Lab Venipuncture / Unknown 03/25/2019 10:30 AM ADMITTING COORDINATOR 03/25/2019 10:54 AM ADMITTING COORDINATOR Terrell Campbell MD LAB - SEROLOGY MALIA IRVIN [address] [phone] * PHOSPHORUS BLOOD (03/25/2019 3:45 AM ADMITTING COORDINATOR) Phosphorus 3.7 2.3 - 4.7 mg/dL 03/25/2019 4:37 AM [facility] Blood BLOOD SPECIMEN / Unknown Lab Venipuncture / Unknown 03/25/2019 3:45 AM ADMITTING COORDINATOR 03/25/2019 4:08 AM ADMITTING COORDINATOR Terrell Campbell MD LAB - CHEMISTRY ORD TKBLES Performing Organization Address [facility] [place] [address], [facility] [phone] * MAGNESIUM BLOOD (03/25/2019 3:45 AM ADMITTING COORDINATOR) Magnesium 2.4 1.6 - 2.6 mg/dL 03/25/2019 4:37 AM ADMITTING COORDINATOR [facility] Blood BLOOD SPECIMEN / Unknown Lab Venipuncture / Unknown 03/25/2019 3:45 AM ADMITTING COORDINATOR 03/25/2019 4:08 AM ADMITTING COORDINATOR Terrell Campbell MD LAB - CHEMISTRY ORD ERABLES Performing Organization Address [facility]/[place]IP [place] [address], [facility] [phone] * (ABNORMAL) CBC W AUTO DIFFERENTIAL (03/25/2019 3:45 AM ADMITTING COORDINATOR) WBC 13.2(H) 3.5 - 10.5 10? 3 /uL 03/25/2019 4:24 AM [facility] RBC 4.84 4.30 - 5.70 10? 6 /uL 03/25/2019 4:24 AM [facility] Hemoglobin 13.8 13.5 - 17.5 g/dL 03/25/2019 4:24 AM [facility] Hematocrit 41.8 39.0 - 50.0 % 03/25/2019 4:24 AM [facility] MCV 86.4 81.0 - 97.0 fL 03/25/2019 4:24 AM [facility] MCH 28.5 28.0 - 34.0 pg 03/25/2019 4:24 AM [facility] MCHC 33.0 32.0 - 36.0 g/dL 03/25/2019 4:24 AM [facility] Platelet Count 289 150 - 400 10? 3 /uL 03/25/2019 4:24 AM [facility] RDW-SD 39.8 36.0 - 50.0 fL 03/25/2019 4:24 AM [facility] RDW-CV 12.6 11.2 - 14.8 % 03/25/2019 4:24 AM [facility] MPV 11.5 9.3 - 12.8 fL 03/25/2019 4:24 AM [facility] nRBC Absolute 0.00 0 10? 3 /uL 03/25/2019 4:24 AM [facility] nRBC Auto 0.0 0 /100 WBC 03/25/2019 4:24 AM [facility] Neutrophils % 77.4(H) 35.0 - 70.0 % 03/25/2019 4:24 AM [facility] Lymphocytes % 10.9(L) 19.7 - 55.1 % 03/25/2019 4:24 AM [facility] Monocytes % 9.7 3.0 - 15.0 % 03/25/2019 4:24 AM [facility] Eosinophils % 0.8 0.0 - 6.0 % 03/25/2019 4:24 AM [facility] Basophil % 0.5 0.0 - 1.5 % 03/25/2019 4:24 AM [facility] Neutrophils Absolute 10.2(H) 1.6 - 7.0 10? 3 /uL 03/25/2019 4:24 AM [facility] Lymphocyte Absolute 1.4 0.8 - 2.9 10? 3 /uL 03/25/2019 4:24 AM [facility] Monocytes Absolute 1.28(H) 0.14 - 0.66 10? 3 /uL 03/25/2019 4:24 AM [facility] Eosinophils Absolute 0.10 0.00 - 0.45 10? 3 /uL 03/25/2019 4:24 AM [facility] Basophils Absolute 0.07(H) 0.00 - 0.06 10? 3 /uL 03/25/2019 4:24 AM [facility] Immature Granulocytes % 0.7 0.0 - 1.0 % 03/25/2019 4:24 AM [facility] Blood BLOOD SPECIMEN / Unknown Lab Venipuncture / Unknown 03/25/2019 3:45 AM ADMITTING COORDINATOR 03/25/2019 4:08 AM [facility] Terrell Campbell MD LAB - HEMATOLOGY OR DERABLES [address] [phone] * (ABNORMAL) BASIC METABOLIC PANEL (CALCIUM TOTAL) (03/25/2019 3:45 AM [facility]) BUN 10 7 - 26 mg/dL 03/25/2019 4:37 AM [facility] Creatinine 0.8 0.6 - 1.2 mg/dL 03/25/2019 4:37 AM [facility] Sodium 132(L) 136 - 145 mmol/L 03/25/2019 4:37 AM [facility] Potassium 3.4(L) 3.5 - 4.5 mmol/L 03/25/2019 4:37 AM [facility] Chloride 102 98 - 107 mmol/L 03/25/2019 4:37 AM [facility] CO2 21(L) 22 - 29 mmol/L 03/25/2019 4:37 AM [facility] Glucose 101 70 - 115 mg/dL 03/25/2019 4:37 AM [facility] Calcium 9.6 8.4 - 10.2 mg/dL 03/25/2019 4:37 AM [facility] Anion Gap 12 8 - 18 03/25/2019 4:37 AM [facility] BUN/Creatinine Ratio 13 7 - 23 03/25/2019 4:37 AM [facility] Osmolality Calculated 273 270 - 300 mOsm/kg 03/25/2019 4:37 AM [facility] eGFR >60 >60 mL/min/1.7 3 m2 03/25/2019 4:37 AM [facility] Blood BLOOD SPECIMEN / Unknown Lab Venipuncture / Unknown 03/25/2019 3:45 AM ADMITTING COORDINATOR 03/25/2019 4:08 AM ADMITTING COORDINATOR Terrell Campbell MD LAB - CHEMISTRY ORD ERABLES Performing Organization Address [facility] Co de Phone Number [address] [phone] * HIV-1 HIV-2 ANTIGEN/ANTIBODY (03/24/2019 5:17 PM ADMITTING COORDINATOR) HIV Antigen/Antibod y 1 & 2 Non-reacti ve Non-react lanette 03/24/2019 6:06 PM [facility] Comment: Neither HIV-1 p24 Antigen nor HIV-1/HIV-2 Antibodies are detected. ? Blood BLOOD SPECIMEN / Unknown Lab Venipuncture / Unknown 03/24/2019 5:17 PM ADMITTING COORDINATOR 03/24/2019 5:27 PM ADMITTING COORDINATOR Terrell Campbell MD LAB - HEMATOLOGY OR DERABLES Performing Organization Address [facility] Co de Phone Number [address] [phone] * FL LUMBAR PUNCTURE (03/24/2019 9:18 AM ADMITTING COORDINATOR) Anatomical Region Laterality Modality Spine Radiographic Trang ging 03/24/2019 9:18 AM ADMITTING COORDINATOR Impressions 03/24/2019 10:18 AM ADMITTING COORDINATOR IMPRESSION: 1. Successful lumbar puncture under fluoroscopic guidance at L4-5. Dictated by Kwaku Bañuelos MD (vice president of engineering). This report was approved ??by Kwaku Bañuelos ?? on 03/24/2019 9:[address] JESSI Chavez have personally reviewed and interpreted this examination/study. This report was electronically signed by JESSI OLEA ??on 03/24/2019 10:18 AM . Narrative 03/24/2019 10:18 AM ADMITTING COORDINATOR EXAMINATION: Diagnostic lumbar puncture (LP) under fluoroscopic [...] at L4-5. Dictated by Kwaku Bañuelos MD (vice president of engineering). This report was approved by Kwaku Bañuelos on 03/24/2019 9:19 AM . I, Dr. JESSI OLEA have personally reviewed and interpreted this examination/study. This report was electronically signed by JESSI OLEA on 03/24/2019 10:18 AM . Terrell Campbell MD FLUOROSCOPY ORDERAB LES * MANUAL DIFFERENTIAL REVIEWED (03/24/2019 8:53 AM ADMITTING COORDINATOR) Manual Differential Reviewed DIFFERENTIAL REVIEW - CONFIRMED DIFFERENTIAL REVIEW - CONFIRMED 03/24/2019 3:30 PM ADMITTING COORDINATOR [facility] Cerebral spinal fluid CEREBROSPINAL FLUID SPECIMEN / Unknown Collection / Unknown 03/24/2019 8:53 AM ADMITTING COORDINATOR 03/24/2019 9:38 AM ADMITTING COORDINATOR Terrell Campbell MD LAB - HEMATOLOGY OR DERABLES [address] [phone] * DIFFERENTIAL MANUAL FLUID (03/24/2019 8:53 AM ADMITTING COORDINATOR) Lymphocytes % Fluid 83 % 03/24/2019 10:26 AM ADMITTING COORDINATOR [facility] Monocytes % Fluid 17 % 03/24/2019 10:26 AM [facility] Cerebral spinal fluid CEREBROSPINAL FLUID SPECIMEN / Unknown Collection / Unknown 03/24/2019 8:53 AM ADMITTING COORDINATOR 03/24/2019 9:38 AM ADMITTING COORDINATOR Terrell Campbell MD LAB - BODY FLUID OR DERABLES Performing Organization Address [facility] [place] [address], [facility] [phone] * GRAM STAIN (LAB ORDERED) (03/24/2019 8:53 AM ADMITTING COORDINATOR) Gram Stain Rare Polymorphonuclear cells 03/24/2019 2:07 PM [facility] Gram Stain No organisms seen 020 2:07 PM [facility] Microbiology CEREBROSPINAL FLUID SPECIMEN / Unknown Collection / Unknown 03/24/2019 8:53 AM ADMITTING COORDINATOR 03/24/2019 9:37 AM ADMITTING COORDINATOR Tererll Campbell MD LAB - MICROBIOLOGY ORDERABLES Performing Organization Address [facility] [place] [address], [facility] [phone] * CULTURE CSF+GRAM STAIN (03/24/2019 8:53 AM ADMITTING COORDINATOR) Culture No growth LIAN 03/31/2019 6:06 AM [facility] MICROBIOLOGY Gram Stain Light Polymorphonuclear cells 03/31/2019 6:06 AM ADMITTING COORDINATOR [facility] MICROBIOLOGY Gram Stain No organisms seen 020 6:06 AM [facility] MICROBIOLOGY Cerebral spinal fluid CEREBROSPINAL FLUID SPECIMEN / Unknown Collection / Unknown 03/24/2019 8:53 AM ADMITTING COORDINATOR 03/24/2019 9:37 AM ADMITTING COORDINATOR Terrell Campbell MD LAB - MICROBIOLOGY ORDERABLES Performing Organization Address City/[facility]/ZIP Co de Phone Number [facility] MICROBIOLOGY [address] [place] [address], [facility] [phone] * (ABNORMAL) CELL COUNT W DIFFERENTIAL CSF (03/24/2019 8:53 AM ADMITTING COORDINATOR) Color Fluid Colorless Colorless, Straw 03/24/2019 9:59 AM [facility] Clarity Fluid Clear Clear 03/24/2019 9:59 AM [facility] Volume Fluid 1.5 mL 03/24/2019 9:59 AM [facility] WBC Calculation Fluid 178(H) 0 - 5 /uL 03/24/2019 9:59 AM [facility] RBC Calculation 1,030 /uL 0 9:59 AM [facility] Xanthochromia Fluid Negative Negative 03/24/2019 9:59 AM [facility] Differential Manual Differential to follow. 03/24/2019 9:59 AM [facility] Cerebral spinal fluid CEREBROSPINAL FLUID SPECIMEN / Unknown Collection / Unknown 03/24/2019 8:53 AM ADMITTING COORDINATOR 03/24/2019 9:38 AM [facility] - 03/24/2019 9:59 AM ADMITTING COORDINATOR No reference ranges established for body fluid cell counts. The reference ranges provided are derived from published literature. The test results must be integrated into the clinical context for interpretation. Terrell Campbell MD LAB - BODY FLUID OR DERABLES [address] [phone] * (ABNORMAL) PROTEIN CSF (03/24/2019 8:53 AM ADMITTING COORDINATOR) Protein CSF 69(H) 15 - 45 mg/dL 03/24/2019 9:55 AM [facility] Cerebral spinal fluid CEREBROSPINAL FLUID SPECIMEN / Unknown Collection / Unknown 03/24/2019 8:53 AM ADMITTING COORDINATOR 03/24/2019 9:38 AM ADMITTING COORDINATOR Terrell Campbell MD LAB - BODY FLUID OR DERABLES [address] [phone] * GLUCOSE CSF (03/24/2019 8:53 AM ADMITTING COORDINATOR) Glucose CSF 54 40 - 70 mg/dL 03/24/2019 9:55 AM [facility] Cerebral spinal fluid CEREBROSPINAL FLUID SPECIMEN / Unknown Collection / Unknown 03/24/2019 8:53 AM ADMITTING COORDINATOR 03/24/2019 9:38 AM ADMITTING COORDINATOR Terrell Campbell MD LAB - BODY FLUID OR DERABLES [address] [address], [facility] [phone] * CRYPTOCOCCUS ANTIGEN CSF (03/24/2019 8:50 AM ADMITTING COORDINATOR) Cryptococcus Antigen CSF Negative Negative 03/24/2019 6:45 PM ADMITTING COORDINATOR [facility] MICROBIOLOGY Cerebral spinal fluid CEREBROSPINAL FLUID SPECIMEN / Unknown Collection / Unknown 03/24/2019 8:50 AM ADMITTING COORDINATOR 03/24/2019 4:45 PM ADMITTING COORDINATOR Terrell Campbell MD LAB - MICROBIOLOGY ORDERABLES Performing Organization Address City/[facility]/ZIP Co de Phone Number [facility]CROBIOLOG[facility] [address] [place] [address], [facility] [phone] * HERPES SIMPLEX 1+2 PCR CSF (03/24/2019 8:50 AM ADMITTING COORDINATOR) Herpes Simplex Virus 1 PCR CSF Not detected Not detected 03/24/2019 9:11 PM ADMITTING COORDINATOR [facility] Herpes Simplex Virus 2 PCR CSF Not detected Not detected 03/24/2019 9:11 PM ADMITTING COORDINATOR [facility] Microbiology CEREBROSPINAL FLUID SPECIMEN / Unknown Collection / Unknown 03/24/2019 8:50 AM ADMITTING COORDINATOR 03/24/2019 4:45 PM ADMITTING COORDINATOR Terrell Campbell MD LAB - MICROBIOLOGY ORDERABLES [facility] [address] [place] [address], [facility] [phone] * ENTEROVIRUS PCR CSF (03/24/2019 8:50 AM ADMITTING COORDINATOR) Enterovirus by PCR Not detected Not detected, Indeterminate 03/24/2019 9:10 PM ADMITTING COORDINATOR [facility]CRO[facility] Cerebral spinal fluid CEREBROSPINAL FLUID SPECIMEN / Unknown Collection / Unknown 03/24/2019 8:50 AM ADMITTING COORDINATOR 03/24/2019 4:45 PM ADMITTING COORDINATOR Narrative [facility] - 03/24/2019 9:10 PM ADMITTING COORDINATOR Not Detected results do not rule out enterovirus as a cause of infection, and must be evaluated in clinical context. This test cannot rule out other causes of meningitis, including bacteria, mycobacteria, other viruses (e.g. herpes family viruses, arboviruses, mumps virus, etc) and fungi. Terrell Campbell MD LAB - MICROBIOLOGY ORDERABLES Performing Organization Address [facility]/ZIP Co de Phone Number [facility] MICROBIOLOG[facility] [address] [place] [address], [facility] [phone] * EKG 12-LEAD (03/23/2019 11:49 PM ADMITTING COORDINATOR) Pathologist [facility] Ventricular Rate 79 BPM [facility] Atrial Rate 79 BPM [facility] P-R Interval 204 ms [facility] QRS Duration ms 92 ms [facility] Q-T Interval ms 378 ms [facility] QTC Calculation (Bezet) 433 ms [facility] Calculated P [place] 51 degrees [facility] Calculated R [place] -25 degrees [facility] Calculated T [place] 51 degrees [facility] Interpretation EKG NORMAL SINUS RHYTHM ABNORMAL ECG WHEN COMPARED WITH ECG OF 17-JAN-2015 09:35, NO SIGNIFICANT CHANGE WAS FOUND Confirmed by Ilan Moran ([id number]), graphics editor Alexander Puga ([id number]) on 03/30/2019 10:52:27 PM [facility] MUSE 03/23/2019 11:4 9 PM ADMITTING COORDINATOR 03/30/2019 10:52 PM ADMITTING COORDINATOR Mukul Milan MD ECG ORDERABLES Performing Organization Address [facility] Co de Phone Number [facility] MUSE * (ABNORMAL) BLOOD GASES ALEX (03/23/2019 11:04 PM ADMITTING COORDINATOR) Pathologist [facility] pH Mixed Venous 7.43(H) 7.30 - 7.40 03/23/2019 11:12 PM ADMITTING COORDINATOR [facility] pCO2 Mixed Venous 37(L) 40 - 46 mmHg 03/23/2019 11:12 PM ADMITTING COORDINATOR [facility] pO2 Mixed Venous 51(H) 35 - 42 mmHg 03/23/2019 11:12 PM [facility] HCO3 Mixed Venous 23.9 22.0 - 26.0 mmol/L 03/23/2019 11:12 PM [facility] TCO2 Mixed Venous 25.0 25.0 - 29.0 mmol/L 03/23/2019 11:12 PM [facility] Base Excess Venous 0.0 -2.0 - 2.0 mmol/L 03/23/2019 11:12 PM [facility] Hemoglobin Mixed Venous 14.2 13.5 - 17.5 g/dL 03/23/2019 11:12 PM [facility] Oxyhemoglobin Mixed Venous 86.8(H) 66.0 - 77.0 % 03/23/2019 11:12 PM [facility] Carboxyhemoglobin Venous 0.3 0.0 - 3.0 % 03/23/2019 11:12 PM [facility] Methemoglobin 0.2 0.0 - 2.0 % 03/23/2019 11:12 PM [facility] FI O2 Mixed Venous 21.0 % 2019 11:12 PM [facility] Blood BLOOD SPECIMEN / Unknown Venipuncture / Unknown 03/23/2019 11:04 PM ADMITTING COORDINATOR 03/23/2019 11:09 PM ADMITTING COORDINATOR Mukul Milan MD LAB - BLOOD GASES OR DERABLES Performing Organization Address [facility]/State/[facility] Co de Phone Number [facility] [address] [place] [address] * MRI ANGIO BRAIN VENOUS WWO CONT (03/23/2019 8:34 PM ADMITTING COORDINATOR) Anatomical Region Laterality Modality Head Magnetic Resonan ce 03/24/2019 7:13 AM ADMITTING COORDINATOR Impressions 03/24/2019 12:10 PM ADMITTING COORDINATOR IMPRESSION: 1. No evidence of acute cerebral infarction. 2. No large arterial occlusions or significant stenoses identified in the head. 3. No evidence of dural sinus thrombosis. I, Dr. ABRAHAM SANDERS have personally reviewed and interpreted this examination/study. This report was electronically signed by ABRAHAM SANDERS ??on 03/24/2019 12:10 PM . Narrative 03/24/2019 12:10 PM ADMITTING COORDINATOR EXAMINATION: 1. Magnetic resonance imaging (MRI) of [...] MRI BRAIN WWO CONTRAST (03/23/2019 8:33 PM ADMITTING COORDINATOR) Anatomical Region Laterality Modality Head Magnetic Resonan ce 03/24/2019 7:13 AM ADMITTING COORDINATOR Impressions 03/24/2019 12:10 PM ADMITTING COORDINATOR IMPRESSION: 1. No evidence of acute cerebral infarction. 2. No large arterial occlusions or significant stenoses identified in the head. 3. No evidence of dural sinus thrombosis. Dr. ABRAHAM Chavez have personally reviewed and interpreted this examination/study. This report was electronically signed by ABRAHAM SANDERS ??on 03/24/2019 12:10 PM . Narrative 03/24/2019 12:10 PM ADMITTING COORDINATOR EXAMINATION: 1. Magnetic resonance imaging (MRI) of [...] URINALYSIS W/MICROSCOPIC NO CULTURE (03/23/2019 2:06 PM ADMITTING COORDINATOR) Color UA Yellow Straw, Yellow, Colorless 03/23/2019 2:20 PM ADMITTING COORDINATOR [facility] Clarity UA Slt Cloudy Clear, Slt Cloudy 03/23/2019 2:20 PM ADMITTING COORDINATOR [facility] Specific [place] UA 1.005 1.005 - 1.030 03/23/2019 2:20 PM ADMITTING COORDINATOR [facility] pH UA 6.0 5.0 - 8.0 pH 03/23/2019 2:20 PM ADMITTING COORDINATOR [facility] Protein UA Negative Negative mg/dL 03/23/2019 2:20 PM ADMITTING COORDINATOR [facility] Glucose UA Negative Negative mg/dL 03/23/2019 2:20 PM [facility] Ketone UA Negative Negative mg/dL 03/23/2019 2:20 PM [facility] Bilirubin UA Negative Negative mg/dL 03/23/2019 2:20 PM [facility] Blood UA Negative Negative 03/23/2019 2:20 PM [facility] Nitrite UA Negative Negative 03/23/2019 2:20 PM [facility] Leukocyte Esterase Negative Negative 03/23/2019 2:20 PM [facility] Urobilinogen UA Negative Negative mg/dL 03/23/2019 2:20 PM [facility] RBC UA 0-2 None Seen, 0-2, 3-5 /HPF 03/23/2019 2:20 PM [facility] WBC UA 0-5 None Seen, 0-5 /HPF 03/23/2019 2:20 PM [facility] Bacteria UA Trace None, Trace /HPF 03/23/2019 2:20 PM [facility] Squamous Epithelial Cells UA 0-2 None Seen, 0-2 /HPF 03/23/2019 2:20 PM [facility] Urine URINE SPECIMEN OBTAINED BY CLEAN CATCH PROCEDURE / Unknown Collection / Unknown 03/23/2019 2:06 PM ADMITTING COORDINATOR 03/23/2019 2:09 PM [facility] - 03/23/2019 2:20 PM [facility] Sima Velazquez PA-C LAB - URINAL YSIS ORDERABLES Performing Organization Address City/State/[facility] Co de Phone Number [address] [phone] * (ABNORMAL) COMPREHENSIVE METABOLIC PANEL (03/23/2019 12:23 PM ADMITTING COORDINATOR) BUN 12 7 - 26 mg/dL 03/23/2019 12:44 PM [facility] Creatinine 0.8 0.6 - 1.2 mg/dL 03/23/2019 12:44 PM [facility] Sodium 134(L) 136 - 145 mmol/L 03/23/2019 12:44 PM [facility] Potassium 4.2 3.5 - 4.5 mmol/L 03/23/2019 12:44 PM [facility] Chloride 100 98 - 107 mmol/L 03/23/2019 12:44 PM [facility] CO2 23 22 - 29 mmol/L 03/23/2019 12:44 PM [facility] Glucose 91 70 - 115 mg/dL 03/23/2019 12:44 PM [facility] Calcium 9.8 8.4 - 10.2 mg/dL 03/23/2019 12:44 PM [facility] Protein Total 7.9 6.0 - 8.3 g/dL 03/23/2019 12:44 PM [facility] Albumin 4.1 3.4 - 5.0 g/dL 03/23/2019 12:44 PM [facility] Bilirubin Total 0.5 0.2 - 1.2 mg/dL 03/23/2019 12:44 PM [facility] Alkaline Phosphatase 82 40 - 150 Units/L 03/23/2019 12:44 PM [facility] ALT 17 0 - 55 Units/L 03/23/2019 12:44 PM [facility] AST 14 5 - 34 Units/L 03/23/2019 12:44 PM [facility] Anion Gap 15 8 - 18 03/23/2019 12:44 PM [facility] BUN/Creatinine Ratio 15 7 - 23 03/23/2019 12:44 PM [facility] Osmolality Calculated 277 270 - 300 mOsm/kg 03/23/2019 12:44 PM [facility] Albumin/Globulin Ratio 1.1 1.1 - 2.3 03/23/2019 12:44 PM [facility] eGFR >60 >60 mL/min/1.7 3 m2 03/23/2019 12:44 PM [facility] Blood BLOOD SPECIMEN / Unknown Venipuncture / Unknown 03/23/2019 12:23 PM ADMITTING COORDINATOR 03/23/2019 12:26 PM [facility] Sima Velazquez PA-C LAB - CHEMIS TRY ORDERABLES [address] [phone] * (ABNORMAL) CBC W AUTO DIFFERENTIAL (03/23/2019 12:23 PM [facility]) WBC 12.7(H) 3.5 - 10.5 10? 3 /uL 03/23/2019 12:32 PM [facility] RBC 4.92 4.30 - 5.70 10? 6 /uL 03/23/2019 12:32 PM [facility] Hemoglobin 14.1 13.5 - 17.5 g/dL 03/23/2019 12:32 PM [facility] Hematocrit 42.2 39.0 - 50.0 % 03/23/2019 12:32 PM [facility] MCV 85.8 81.0 - 97.0 fL 03/23/2019 12:32 PM [facility] MCH 28.7 28.0 - 34.0 pg 03/23/2019 12:32 PM [facility] MCHC 33.4 32.0 - 36.0 g/dL 03/23/2019 12:32 PM [facility] Platelet Count 308 150 - 400 10? 3 /uL 03/23/2019 12:32 PM [facility] RDW-SD 39.8 36.0 - 50.0 fL 03/23/2019 12:32 PM [facility] RDW-CV 12.7 11.2 - 14.8 % 03/23/2019 12:32 PM [facility] MPV 11.1 9.3 - 12.8 fL 03/23/2019 12:32 PM [facility] nRBC Absolute 0.00 0 10? 3 /uL 03/23/2019 12:32 PM [facility] nRBC Auto 0.0 0 /100 WBC 03/23/2019 12:32 PM [facility] Neutrophils % 74.2(H) 35.0 - 70.0 % 03/23/2019 12:32 PM [facility] Lymphocytes % 14.6(L) 19.7 - 55.1 % 03/23/2019 12:32 PM [facility] Monocytes % 9.1 3.0 - 15.0 % 03/23/2019 12:32 PM [facility] Eosinophils % 1.0 0.0 - 6.0 % 03/23/2019 12:32 PM [facility] Basophil % 0.4 0.0 - 1.5 % 03/23/2019 12:32 PM [facility] Neutrophils Absolute 9.4(H) 1.6 - 7.0 10? 3 /uL 03/23/2019 12:32 PM [facility] Lymphocyte Absolute 1.9 0.8 - 2.9 10? 3 /uL 03/23/2019 12:32 PM [facility] Monocytes Absolute 1.16(H) 0.14 - 0.66 10? 3 /uL 03/23/2019 12:32 PM [facility] Eosinophils Absolute 0.13 0.00 - 0.45 10? 3 /uL 03/23/2019 12:32 PM [facility] Basophils Absolute 0.05 0.00 - 0.06 10? 3 /uL 03/23/2019 12:32 PM [facility] Immature Granulocytes % 0.7 0.0 - 1.0 % 03/23/2019 12:32 PM [facility] Blood BLOOD SPECIMEN / Unknown Venipuncture / Unknown 03/23/2019 12:23 PM ADMITTING COORDINATOR 03/23/2019 12:26 PM ADMITTING COORDINATOR Sima Velazquez PA-C LAB - HEMATO LOGY ORDERABLES Performing Organization Address City/State/[facility] Co de Phone Number [address] [phone] * CT HEAD WO CONTRAST (03/23/2019 11:36 AM ADMITTING COORDINATOR) Anatomical Region Laterality Modality Head Computed Tomogra phy 03/23/2019 11:3 7 AM ADMITTING COORDINATOR Impressions 03/23/2019 11:44 AM ADMITTING COORDINATOR IMPRESSION: No acute intracranial CT abnormality. Dictated by Kwaku Bañuelos MD (vice president of engineering). I, Dr. JESSI OLEA have personally reviewed and interpreted this examination/study. This report was electronically signed by JESSI OLEA ??on 03/23/2019 11:44 AM . Narrative 03/23/2019 11:44 AM ADMITTING COORDINATOR EXAM: CT HEAD WO CONTRAST CLINICAL INDICATION: [...] CT abnormality. Dictated by Kwaku Bañuelos MD (vice president of engineering). Dr. JESSI Chavez have personally reviewed and [...] 8 hours. $ Given 03/25/2019 4:55 AM ADMITTING COORDINATOR 3 mL $ Given 03/24/2019 8:24 PM ADMITTING COORDINATOR 3 mL $ Given 03/24/2019 1:45 PM ADMITTING COORDINATOR 3 mL 0.9% NaCl IV Bolus 1,000 mL, at 3,000 mL/hr, Administer over 20 Minutes, NOW, 1 dose, On Thu03/23/19 at 1100 $ New Bag/Syringe 03/23/2019 12:26 PM ADMITTING COORDINATOR 1,000 mL 3000 mL/hr acetaminophen (TYLENOL) tablet 500 mg 500 mg, Oral, EVERY 4 HOURS PRN, Headache, Starting on Thu03/25/19 at 0721, Until Thu03/25/19 at 1302 acetaminophen (TYLENOL) tablet 650 mg 650 mg, Oral, NOW, 1 dose, On Thu03/24/19 at 0545 $ Given 03/24/2019 6:52 AM ADMITTING COORDINATOR 650 mg acetaZOLAMIDE (DIAMOX) tablet 500 mg 500 mg, Oral, 2 TIMES DAILY, First dose (after last reorder) on Thu03/24/19 at 2100, Until Discontinued $ Given 03/25/2019 8:52 AM ADMITTING COORDINATOR 500 mg $ Given 03/24/2019 8:23 PM ADMITTING COORDINATOR 500 mg ALPRAZolam (XANAX) tablet 0.5 mg 0.5 mg, Oral, NOW, 1 dose, On Thu03/23/19 at 1900 $ Given 03/23/2019 7:22 PM ADMITTING COORDINATOR 0.5 mg amLODIPine (NORVASC) tablet 10 mg 10 mg, Oral, DAILY, First dose (after last modification) on Thu03/25/19 at 0900, Until Discontinued $ Given 03/25/2019 8:52 AM ADMITTING COORDINATOR 10 mg amLODIPine (NORVASC) tablet 5 mg 5 mg, Oral, DAILY, First dose on Thu03/24/19 at 1200, Until Discontinued $ Given 03/24/2019 12:34 PM ADMITTING COORDINATOR 5 mg amLODIPine (NORVASC) tablet 5 mg 5 mg, Oral, ONCE, 1 dose, On Thu03/24/19 at 2230 $ Given 03/24/2019 10:37 PM ADMITTING COORDINATOR 5 mg atorvastatin (LIPITOR) tablet 20 mg 20 mg, Oral, AT BEDTIME, First dose on Thu03/24/19 at 2100, Until Discontinued $ Given 03/24/2019 8:23 PM ADMITTING COORDINATOR 20 mg cyclobenzaprine (FLEXERIL) tablet 10 mg 10 mg, Oral, NOW, 1 dose, On Thu03/24/19 at 0545 $ Given 03/24/2019 6:53 AM ADMITTING COORDINATOR 10 mg cyclobenzaprine (FLEXERIL) tablet 10 mg 10 mg, Oral, 3 TIMES DAILY PRN, Muscle Spasms, Starting on Thu03/24/19 at 1316, Until Thu03/25/19 at 1302 $ Given 03/24/2019 8:29 PM ADMITTING COORDINATOR 10 mg $ Given 03/24/2019 1:45 PM ADMITTING COORDINATOR 10 mg droperidol (INAPSINE) injection 0.625 mg 0.625 mg, Intravenous, NOW, 1 dose, On Thu03/24/19 at 0200 $ Given 03/24/2019 2:45 AM ADMITTING COORDINATOR 0.625 mg gadobutrol (GADAVIST) injection Intravenous, CONTRAST ONCE, Starting on Thu03/23/19 at 2033, Until Thu03/25/19 at 1302 $ Given - Contrast 03/23/2019 8:34 PM ADMITTING COORDINATOR 10 mL heparin injection 5,000 Units 5,000 Units, Subcutaneous, EVERY 8 HOURS, First dose on Thu03/24/19 at 1400, Until Discontinued $ Given 03/25/2019 4:54 AM ADMITTING COORDINATOR 5,000 Units Abdominal Tissue $ Given 03/24/2019 8:25 PM ADMITTING COORDINATOR 5,000 Units A bdominal Tissue $ Given 03/24/2019 1:44 PM ADMITTING COORDINATOR 5,000 Units A bd Left Lower Quadrant ketorolac (TORADOL) injection 30 mg 30 mg, Intravenous, ONCE, 1 dose, On Thu03/23/19 at 1315 $ Given 03/23/2019 1:14 PM ADMITTING COORDINATOR 30 mg metoclopramide (REGLAN) injection 10 mg 10 mg, Intravenous, NOW, 1 dose, On Thu03/23/19 at 1900, Inject undiluted IV slowly over 1 to 2 minutes. $ Given 03/23/2019 7:00 PM ADMITTING COORDINATOR 10 mg topiramate (TOPAMAX) tablet 50 mg 50 mg, Oral, 2 TIMES DAILY, First dose on Thu03/24/19 at 2100, Until Discontinued, Swallow tablets whole if taking orally to avoid a bitter taste. $ Given 03/25/2019 8:52 AM ADMITTING COORDINATOR 50 mg $ Given 03/24/2019 8:23 PM ADMITTING COORDINATOR 50 mg documented in this encounter Active and Recently Administered Medications Times are shown in ADMITTING COORDINATOR. Scheduled Medication Order 03/23/2019 03/24/2019 03/25/2019 0.9% [...] Discontinued 1234 ($ Given - Provider: Jarad Patterson RN) amLODIPine (NORVASC) tablet 5 mg (COMPLETED) [...] patency. documented in this encounter Care Teams Water Commissioner Relationship Specialty Start Date End Date Clara Stanley, CARE TAKER-SNOW TECHNICIAN [facility] [place] [address] PCP - General Nurse Practitioner 03/23/19 documented as of this encounter
--- OUTSIDE RECORDS SUMMARY | 2024-03-02 03:58 | XMS_ITS | Encounter Summary ---
Author Organization [facility] Address [address] [facility] [place] [address] Care Team Providers Care Pipe Straightener Name Role Phone Jerry Fatima MD Primary Care Provide r Reason for Visit * Reason Onset Date Comments Results 01/10/2015 Encounter Details Date Type Department Care Team (Late st Contact Info) Description 01/10/2015 Telephone [facility] Heart [facility] Vascular [facility] [address] [place] [address] [address] [place] [address] Sam Dubon MD [address] [place] [address] [address] [place] [address] Results Social History Tobacco Use Types Packs/Day [...] lab work to Dr. Fatima's office at [phone]. documented in this encounter Plan of Treatment Not on file documented as of this encounter Visit Diagnoses Not on filedocumented in this encounter Care Teams Pipe Straightener Relationship Specialty Start Date End Date Jerry Fatima MD PCP - General Family Medicine 12/05/14 03/22/19 documented as of this encounter
--- OUTSIDE RECORDS SUMMARY | 2024-03-02 03:58 | XMS_ITS | Encounter Summary ---
Author Organization [facility] Address [facility] [place] [address] Care Team Providers Care Unit Manager Rn Name Role Phone LizethClara byrd Ricardo FLUME WORKER-MANAGER OF LOSS PREVENTION OPERATIONS Primary Care Provider Reason for Visit * Reason Onset Date Comments Appointment 2019 Encounter Details Date Type Department Care Team (Late st Contact Info) Description 2019 Telephone [facility] [address] [place] [address] Nevin Marshall MD No information [...] Anika to reschedule for new appt. N GROWER documented in this encounter Plan of Treatment Not on file documented as of this encounter Visit Diagnoses Not on filedocumented in this encounter Care Teams Unit Manager Rn Relationship Specialty Start Date End Date Clara Stanley, FLUME WORKER-MANAGER OF LOSS PREVENTION OPERATIONS [address] [place] [id number] PCP - General Nurse Practitioner 03/23/19 documented as of this encounter
--- OUTSIDE RECORDS SUMMARY | 2024-03-02 03:58 | XMS_ITS | Encounter Summary ---
Author Organization [facility] Address [address] [facility] [place] [address] Care Team Providers Care Graphics Artist Name Role Phone Jerry Fatima MD Primary Care Provide r Reason for Visit * Reason Onset Date Comments Opened In Error 01/15/2015 Encounter Details Date Type Department Care Team (Late st Contact Info) Description 01/15/2015 Telephone [facility] Heart [facility] Vascular Care [address] [place] [address] [address] [place] [address] Sam Dubon MD [address] [place] [address] [address] [place], [place] [id number] Opened In Error Social History Tobacco Use [...] on filedocumented in this encounter Care Teams Graphics Artist Relationship Specialty Start Date End Date Jerry Fatima MD PCP - General Family Medicine 12/05/14 03/22/19 documented as of this encounter
--- OUTSIDE RECORDS SUMMARY | 2024-03-02 03:58 | XMS_ITS | Encounter Summary ---
Author Organization [facility] Address [facility] [place] [address] Care Team Providers Care Sat Tutor Name Role Phone Clara Stanley Ricardo CIVIL ENGINEERING SPECIALIST-WRAPPER AND PRESERVER Primary Care Provider Reason for Visit * Reason Onset Date Comments Refill Request 10/03/2019 Encounter Details Date Type Department Care Team (Late st Contact Info) Description 10/03/2019 Refill [facility] [address] [place] [address] Nevin Marshall MD No information available Refill [...] on filedocumented in this encounter Care Teams Sat Tutor Relationship Specialty Start Date End Date Clara Stanley, CIVIL ENGINEERING SPECIALIST-WRAPPER AND PRESERVER [address] [place] [id number] PCP - General Nurse Practitioner 03/23/19 documented as of this encounter
--- OUTSIDE RECORDS SUMMARY | 2024-03-02 03:58 | XMS_ITS | Patient Health Summary ---
Author Organization [facility] Address [address] [facility] [place] [address] Care Team Providers Care On Air Director Name Role Phone Clara Stanley APRN-DIRECTOR OF SOCIAL WORK Primary Care Provider Note from [facility][note 3],non-owned Affiliates and Associated Physician Practices is amultiple site organization consisting of ambulatory clinics and hospital sitesin [place], [place]. This disclosure is being madepursuant to the Care Everywhere program and may not contain all information available regarding this patient. Last updated 17.[facility] Allergies No known active allergies Medications * [...] fluticasone propionate (FLONASE) 50 MCG/ACT nasal spray [place] 2 sprays into each nostril 2 times daily * budesonide-formoterol (SYMBICORT) 160-4.5 MCG/ACT inhaler Inhale 2 Inhalers by mouth 2 times daily * albuterol HFA (PROVENTIL;VENTOLIN;PROAIR) 108 (90 Base) MCG/ACT inhaler (Started 07/27/2019) INL 2 PFS PO Q 4 H PRN * Ascorbic Acid 1000 MG Take 1,000 mg by mouth once daily * Cholecalciferol 1.25 MG (51505 UT) Take 50,000 Units by mouth * [...] Comments Blood Pressure 136/79 03/25/2019 7:49 AM STAND IN Pulse 78 03/25/2019 7:49 AM STAND IN Temperature 36.9 ??C (98.4 ??F) 03/25/2019 7:49 AM CS T Respiratory Rate 18 03/25/2019 7:49 AM STAND IN Oxygen Saturation 100% 03/25/2019 7:49 AM STAND IN Inhaled Oxygen Concentration - - Weight 160.1 kg (353 lb) 04/15/2019 4:11 PM STAND IN Height 190.5 cm (6' 3 ) 03/23/2019 10:50 AM STAND IN Body Mass Index 44.12 03/23/2019 10:50 AM STAND IN Procedures * OPH OCT TEST [facility](Performed 02/23/2020) [...] OPH OCT TEST [facility] (02/23/2020 11:28 AM STAND IN) Anatomical Region Laterality Modality Other 02/23/2020 11:2 8 AM STAND IN Nevin Marshall MD OPHTHALMOLOGY SERVIC ES ORDERABLES [...] VISUAL FIELD TEST [facility] (04/15/2019 2:57 PM STAND IN) Anatomical Region Laterality Modality Other 04/15/2019 2:57 PM STAND IN Noah Oneil MD OPHTHALMOLOGY SERVICES ORDERABLES * OCT (04/15/2019 12:00 AM STAND IN) Anatomical Region Laterality Modality Other 04/15/2019 Patel Williamson MD OPHTHALMOLOGY SER VICES ORDERABLES * CARDIAC EKG ORDER (04/14/2019 3:11 PM STAND IN) Narrative 04/14/2019 3:11 PM STAND IN Ordered by an unspecified provider. Scanned Document CARDIAC SERVICES ORD ERABLES * SYPHILIS ANTIBODY CASCADING REFLEX (03/25/2019 10:30 AM STAND IN) Pathologist [facility] Treponema pallidum Antibody Non-react lanette Non-react lanette 03/25/2019 12:01 PM [facility] Comment: No Laboratory evidence of syphilis infection. ?? Note: ??Circulating antibodies may be low or undetectable in early infection. ??If recent exposure is suspected, re-draw sample in 2-4 weeks and repeat testing. Blood BLOOD SPECIMEN / Unknown Lab Venipuncture / Unknown 03/25/2019 10:30 AM STAND IN 03/25/2019 10:54 AM STAND IN Terrell Campbell MD LAB - SEROLOGY MALIA IRVIN [facility] Organization Address City/State/ZIP Co de Phone Number [address] [phone] * (ABNORMAL) CBC W AUTO DIFFERENTIAL (03/25/2019 3:45 AM STAND IN) Only the most recent of3 resultswithin the time period is included. [facility] WBC 13.2(H) 3.5 - 10.5 10? 3 /uL 03/25/2019 4:24 AM [facility] RBC 4.84 4.30 - 5.70 10? 6 /uL 03/25/2019 4:24 AM [facility] Hemoglobin 13.8 13.5 - 17.5 g/dL 03/25/2019 4:24 AM [facility] Hematocrit 41.8 39.0 - 50.0 % 03/25/2019 4:24 AM [facility] MCV 86.4 81.0 - 97.0 fL 03/25/2019 4:24 AM [facility] MCH 28.5 28.0 - 34.0 pg 03/25/2019 4:24 AM [facility] MCHC 33.0 32.0 - 36.0 g/dL 03/25/2019 4:24 AM [facility] Platelet Count 289 150 - 400 10? 3 /uL 03/25/2019 4:24 AM [facility] RDW-SD 39.8 36.0 - 50.0 fL 03/25/2019 4:24 AM [facility] RDW-CV 12.6 11.2 - 14.8 % 03/25/2019 4:24 AM [facility] MPV 11.5 9.3 - 12.8 fL 03/25/2019 4:24 AM [facility] nRBC Absolute 0.00 0 10? 3 /uL 03/25/2019 4:24 AM [facility] nRBC Auto 0.0 0 /100 WBC 03/25/2019 4:24 AM [facility] Neutrophils % 77.4(H) 35.0 - 70.0 % 03/25/2019 4:24 AM [facility] Lymphocytes % 10.9(L) 19.7 - 55.1 % 03/25/2019 4:24 AM [facility] Monocytes % 9.7 3.0 - 15.0 % 03/25/2019 4:24 AM [facility] Eosinophils % 0.8 0.0 - 6.0 % 03/25/2019 4:24 AM [facility] Basophil % 0.5 0.0 - 1.5 % 03/25/2019 4:24 AM [facility] Neutrophils Absolute 10.2(H) 1.6 - 7.0 10? 3 /uL 03/25/2019 4:24 AM [facility] Lymphocyte Absolute 1.4 0.8 - 2.9 10? 3 /uL 03/25/2019 4:24 AM [facility] Monocytes Absolute 1.28(H) 0.14 - 0.66 10? 3 /uL 03/25/2019 4:24 AM [facility] Eosinophils Absolute 0.10 0.00 - 0.45 10? 3 /uL 03/25/2019 4:24 AM [facility] Basophils Absolute 0.07(H) 0.00 - 0.06 10? 3 /uL 03/25/2019 4:24 AM [facility] Immature Granulocytes % 0.7 0.0 - 1.0 % 03/25/2019 4:24 AM [facility] Blood BLOOD SPECIMEN / Unknown Lab Venipuncture / Unknown 03/25/2019 3:45 AM STAND IN 03/25/2019 4:08 AM STAND IN Terrell Campbell MD LAB - HEMATOLOGY OR DERABLES [facility] [address] [place] [address] * (ABNORMAL) BASIC METABOLIC PANEL (CALCIUM TOTAL) (03/25/2019 3:45 AM STAND IN) BUN 10 7 - 26 mg/dL 03/25/2019 4:37 AM [facility] Creatinine 0.8 0.6 - 1.2 mg/dL 03/25/2019 4:37 AM [facility] Sodium 132(L) 136 - 145 mmol/L 03/25/2019 4:37 AM [facility] Potassium 3.4(L) 3.5 - 4.5 mmol/L 03/25/2019 4:37 AM [facility] Chloride 102 98 - 107 mmol/L 03/25/2019 4:37 AM [facility] CO2 21(L) 22 - 29 mmol/L 03/25/2019 4:37 AM [facility] Glucose 101 70 - 115 mg/dL 03/25/2019 4:37 AM [facility] Calcium 9.6 8.4 - 10.2 mg/dL 03/25/2019 4:37 AM [facility] Anion Gap 12 8 - 18 03/25/2019 4:37 AM [facility] BUN/Creatinine Ratio 13 7 - 23 03/25/2019 4:37 AM [facility] Osmolality Calculated 273 270 - 300 mOsm/kg 03/25/2019 4:37 AM [facility] eGFR >60 >60 mL/min/1.7 3 m2 03/25/2019 4:37 AM [facility] Blood BLOOD SPECIMEN / Unknown Lab Venipuncture / Unknown 03/25/2019 3:45 AM STAND IN 03/25/2019 4:08 AM [facility] Terrell Campbell MD LAB - CHEMISTRY ORD ERABLES [address] [phone] * PHOSPHORUS BLOOD (03/25/2019 3:45 AM STAND IN) Phosphorus 3.7 2.3 - 4.7 mg/dL 03/25/2019 4:37 AM STAND IN [facility] Blood BLOOD SPECIMEN / Unknown Lab Venipuncture / Unknown 03/25/2019 3:45 AM STAND IN 03/25/2019 4:08 AM STAND IN Terrell Campbell MD LAB - CHEMISTRY ORD ERABLES Performing Organization Address [facility] Co de Phone Number [address] [phone] * MAGNESIUM BLOOD (03/25/2019 3:45 AM STAND IN) Magnesium 2.4 1.6 - 2.6 mg/dL 03/25/2019 4:37 AM STAND IN [facility] Blood BLOOD SPECIMEN / Unknown Lab Venipuncture / Unknown 03/25/2019 3:45 AM STAND IN 03/25/2019 4:08 AM STAND IN Terrell Campbell MD LAB - CHEMISTRY ORD ERABLES Performing Organization Address [facility] Co de Phone Number [address] [phone] * HIV-1 HIV-2 ANTIGEN/ANTIBODY (03/24/2019 5:17 PM STAND IN) HIV Antigen/Antibod y 1 & 2 Non-reacti ve Non-react lanette 03/24/2019 6:06 PM STAND IN [facility] Comment: Neither HIV-1 p24 Antigen nor HIV-1/HIV-2 Antibodies are detected. ? Blood BLOOD SPECIMEN / Unknown Lab Venipuncture / Unknown 03/24/2019 5:17 PM STAND IN 03/24/2019 5:27 PM STAND IN Terrell Campbell MD LAB - HEMATOLOGY OR DERABLES Performing Organization Address [facility]/ZIP Co de Phone Number [address] [phone] * FL LUMBAR PUNCTURE (03/24/2019 9:18 AM STAND IN) Anatomical Region Laterality Modality Spine Radiographic Trang ging 03/24/2019 9:1 8 AM STAND IN Impressions 03/24/2019 10:18 AM STAND IN IMPRESSION: 1. Successful lumbar puncture under fluoroscopic guidance at L4-5. Dictated by Kwaku Bañuelos MD (cardiac cath lab radiology technologist). This report was approved ??by Kwaku Bañuelos ?? on 03/24/2019 9:[address] JESSI Chavez have personally reviewed and interpreted this examination/study. This report was electronically signed by JESSI OLEA ??on 03/24/2019 10:18 AM . Narrative 03/24/2019 10:18 AM STAND IN EXAMINATION: Diagnostic lumbar puncture (LP) under fluoroscopic [...] at L4-5. Dictated by Kwaku Bañuelos MD (cardiac cath lab radiology technologist). This report was approved by Kwaku Bañuelos on 03/24/2019 9:19 AM . I, Dr. JESSI OLEA have personally reviewed and interpreted this examination/study. This report was electronically signed by JESSI OLEA on 03/24/2019 10:18 AM . Terrell Campbell MD FLUOROSCOPY ORDERAB LES * MANUAL DIFFERENTIAL REVIEWED (03/24/2019 8:53 AM STAND IN) Manual Differential Reviewed DIFFERENTIAL REVIEW - CONFIRMED DIFFERENTIAL REVIEW - CONFIRMED 03/24/2019 3:30 PM STAND IN [facility] Cerebral spinal fluid CEREBROSPINAL FLUID SPECIMEN / Unknown Collection / Unknown 03/24/2019 8:53 AM STAND IN 03/24/2019 9:38 AM STAND IN Terrell Campbell MD LAB - HEMATOLOGY OR DERABLES [address] [phone] * DIFFERENTIAL MANUAL FLUID (03/24/2019 8:53 AM STAND IN) Lymphocytes % Fluid 83 % 03/24/2019 10:26 AM [facility] Monocytes % Fluid 17 % 03/24/2019 10:26 AM [facility] Cerebral spinal fluid CEREBROSPINAL FLUID SPECIMEN / Unknown Collection / Unknown 03/24/2019 8:53 AM STAND IN 03/24/2019 9:38 AM STAND IN Terrell Campbell MD LAB - BODY FLUID OR DERABLES [address] [phone] * GRAM STAIN (LAB ORDERED) (03/24/2019 8:53 AM STAND IN) Gram Stain Rare Polymorphonuclear cells 03/24/2019 2:07 PM [facility] Gram Stain No organisms seen 020 2:07 PM [facility] Microbiology CEREBROSPINAL FLUID SPECIMEN / Unknown Collection / Unknown 03/24/2019 8:53 AM STAND IN 03/24/2019 9:37 AM STAND IN Terrell Campbell MD LAB - MICROBIOLOGY ORDERABLES Performing Organization Address [facility]/ZIP Co de Phone Number [address] [phone] * CULTURE CSF+GRAM STAIN (03/24/2019 8:53 AM STAND IN) Culture No growth LIAN 03/31/2019 6:06 AM STAND IN [facility] MICROBIOLOGY Gram Stain Light Polymorphonuclear cells 03/31/2019 6:06 AM STAND IN [facility] MICROBIOLOGY Gram Stain No organisms seen 020 6:06 AM STAND IN [facility]CRO[facility]OLOG[facility] Cerebral spinal fluid CEREBROSPINAL FLUID SPECIMEN / Unknown Collection / Unknown 03/24/2019 8:53 AM STAND IN 03/24/2019 9:37 AM STAND IN Terrell Campbell MD LAB - MICROBIOLOGY ORDERABLES Performing Organization Address City/[facility]/ZIP Co de Phone Number [facility] MICROBIOLOGY [address] [place] [address] [phone] * (ABNORMAL) CELL COUNT W DIFFERENTIAL CSF (03/24/2019 8:53 AM STAND IN) Color Fluid Colorless Colorless, Straw 03/24/2019 9:59 AM [facility] Clarity Fluid Clear Clear 03/24/2019 9:59 AM [facility] Volume Fluid 1.5 mL 03/24/2019 9:59 AM [facility] WBC Calculation Fluid 178(H) 0 - 5 /uL 03/24/2019 9:59 AM [facility] RBC Calculation 1,030 /uL 0 9:59 AM [facility] Xanthochromia Fluid Negative Negative 03/24/2019 9:59 AM [facility] Differential Manual Differential to follow. 03/24/2019 9:59 AM [facility] Cerebral spinal fluid CEREBROSPINAL FLUID SPECIMEN / Unknown Collection / Unknown 03/24/2019 8:53 AM STAND IN 03/24/2019 9:38 AM STAND IN Narrative [facility] - 03/24/2019 9:59 AM STAND IN No reference ranges established for body fluid cell counts. The reference ranges provided are derived from published literature. The test results must be integrated into the clinical context for interpretation. Terrell Campbell MD LAB - BODY FLUID OR DERABLES [address] [phone] * (ABNORMAL) PROTEIN CSF (03/24/2019 8:53 AM STAND IN) Protein CSF 69(H) 15 - 45 mg/dL 03/24/2019 9:55 AM [facility] Cerebral spinal fluid CEREBROSPINAL FLUID SPECIMEN / Unknown Collection / Unknown 03/24/2019 8:53 AM STAND IN 03/24/2019 9:38 AM STAND IN Terrell Campbell MD LAB - BODY FLUID OR DERABLES [address] [phone] * GLUCOSE CSF (03/24/2019 8:53 AM STAND IN) Glucose CSF 54 40 - 70 mg/dL 03/24/2019 9:55 AM STAND IN [facility] Cerebral spinal fluid CEREBROSPINAL FLUID SPECIMEN / Unknown Collection / Unknown 03/24/2019 8:53 AM STAND IN 03/24/2019 9:38 AM STAND IN Terrell Campbell MD LAB - BODY FLUID OR DERABLES Performing Organization Address City/[facility]/ZIP Co de Phone Number [facility] [address] [place], [place] [id number] [place] [address] * CRYPTOCOCCUS ANTIGEN CSF (03/24/2019 8:50 AM STAND IN) Cryptococcus Antigen CSF Negative Negative 03/24/2019 6:45 PM STAND IN [facility] MICROBIOLOGY Cerebral spinal fluid CEREBROSPINAL FLUID SPECIMEN / Unknown Collection / Unknown 03/24/2019 8:50 AM STAND IN 03/24/2019 4:45 PM STAND IN Terrell Campbell MD LAB - MICROBIOLOGY ORDERABLES Performing Organization Address [facility] Co de Phone Number [facility] MICROBIOLOG[facility] [address] [phone] * ENTEROVIRUS PCR CSF (03/24/2019 8:50 AM STAND IN) Enterovirus by PCR Not detected Not detected, Indeterminate 03/24/2019 9:10 PM STAND IN [facility] Cerebral spinal fluid CEREBROSPINAL FLUID SPECIMEN / Unknown Collection / Unknown 03/24/2019 8:50 AM STAND IN 03/24/2019 4:45 PM STAND IN Narrative [facility] - 03/24/2019 9:10 PM STAND IN Not Detected results do not rule out enterovirus as a cause of infection, and must be evaluated in clinical context. This test cannot rule out other causes of meningitis, including bacteria, mycobacteria, other viruses (e.g. herpes family viruses, arboviruses, mumps virus, etc) and fungi. Terrell Campbell MD LAB - MICROBIOLOGY ORDERABLES Performing Organization Address City/[facility]/ZIP Co de Phone Number [facility] MICROBIOLOGY [address] [place] [address], [facility] [phone] * HERPES SIMPLEX 1+2 PCR CSF (03/24/2019 8:50 AM STAND IN) Pathologist [facility] Herpes Simplex Virus 1 PCR CSF Not detected Not detected 03/24/2019 9:11 PM STAND IN [facility] Herpes Simplex Virus 2 PCR CSF Not detected Not detected 03/24/2019 9:11 PM STAND IN [facility] Microbiology CEREBROSPINAL FLUID SPECIMEN / Unknown Collection / Unknown 03/24/2019 8:50 AM STAND IN 03/24/2019 4:45 PM STAND IN Terrell Campbell MD LAB - MICROBIOLOGY ORDERABLES Performing Organization Address City/[facility] Co de Phone Number [facility] [address] [place] [address], [facility] [phone] * EKG 12-LEAD (03/23/2019 11:49 PM STAND IN) Only the most recent of3 resultswithin the time period is included. Pathologist [facility] Ventricular Rate 79 BPM [facility] MUSE Atrial Rate 79 BPM [facility]USE P-R Interval 204 ms [facility] QRS Duration ms 92 ms [facility] Q-T Interval ms 378 ms [facility] M[facility] QTC Calculation (Bezet) 433 ms [facility] MUSE Calculated P [place] 51 degrees [facility] MUSE Calculated R [place] -25 degrees [facility] MUSE Calculated T [place] 51 degrees [facility] M[facility] Interpretation EKG NORMAL SINUS RHYTHM ABNORMAL ECG WHEN COMPARED WITH ECG OF 17-JAN-2015 09:35, NO SIGNIFICANT CHANGE WAS FOUND Confirmed by Ilan Moran ([id number]), news assignment editor Alexander Puga ([id number]) on 03/30/2019 10:52:27 PM [facility] MUSE 03/23/2019 11:4 9 PM STAND IN 03/30/2019 10:52 PM STAND IN Mukul Milan MD ECG ORDERABLES Performing Organization Address City/[facility] Co de Phone Number [facility] MUSE * (ABNORMAL) BLOOD GASES ALEX (03/23/2019 11:04 PM STAND IN) Pathologist [facility] pH Mixed Venous 7.43(H) 7.30 - 7.40 03/23/2019 11:12 PM [facility] pCO2 Mixed Venous 37(L) 40 - 46 mmHg 03/23/2019 11:12 PM [facility] pO2 Mixed Venous 51(H) 35 - 42 mmHg 03/23/2019 11:12 PM [facility] HCO3 Mixed Venous 23.9 22.0 - 26.0 mmol/L 03/23/2019 11:12 PM [facility] TCO2 Mixed Venous 25.0 25.0 - 29.0 mmol/L 03/23/2019 11:12 PM [facility] Base Excess Venous 0.0 -2.0 - 2.0 mmol/L 03/23/2019 11:12 PM [facility] Hemoglobin Mixed Venous 14.2 13.5 - 17.5 g/dL 03/23/2019 11:12 PM [facility] Oxyhemoglobin Mixed Venous 86.8(H) 66.0 - 77.0 % 03/23/2019 11:12 PM [facility] Carboxyhemoglobin Venous 0.3 0.0 - 3.0 % 03/23/2019 11:12 PM [facility] Methemoglobin 0.2 0.0 - 2.0 % 03/23/2019 11:12 PM [facility] FI O2 Mixed Venous 21.0 % 2019 11:12 PM [facility] Blood BLOOD SPECIMEN / Unknown Venipuncture / Unknown 03/23/2019 11:04 PM STAND IN 03/23/2019 11:09 PM STAND IN Mukul Milan MD LAB - BLOOD GASES OR DERABLES [address] [phone] * MRI ANGIO BRAIN VENOUS WWO CONT (03/23/2019 8:34 PM STAND IN) Anatomical Region Laterality Modality Head Magnetic Resonan ce 03/24/2019 7:13 AM STAND IN Impressions 03/24/2019 12:10 PM STAND IN IMPRESSION: 1. No evidence of acute cerebral infarction. 2. No large arterial occlusions or significant stenoses identified in the head. 3. No evidence of dural sinus thrombosis. I, Dr. ABRAHAM SANDERS have personally reviewed and interpreted this examination/study. This report was electronically signed by ABRAHAM SANDERS ??on 03/24/2019 12:10 PM . Narrative 03/24/2019 12:10 PM STAND IN EXAMINATION: 1. Magnetic resonance imaging (MRI) of [...] MRI BRAIN WWO CONTRAST (03/23/2019 8:33 PM STAND IN) Anatomical Region Laterality Modality Head Magnetic Resonan ce 03/24/2019 7:13 AM STAND IN Impressions 03/24/2019 12:10 PM STAND IN IMPRESSION: 1. No evidence of acute cerebral infarction. 2. No large arterial occlusions or significant stenoses identified in the head. 3. No evidence of dural sinus thrombosis. Dr. ABRAHAM Chavez have personally reviewed and interpreted this examination/study. This report was electronically signed by ABRAHAM SANDERS ??on 03/24/2019 12:10 PM . Narrative 03/24/2019 12:10 PM STAND IN EXAMINATION: 1. Magnetic resonance imaging (MRI) of [...] 03/24/2019 12:10 PM . Dagoberto Lu DO MR ORDERABLES * URINALYSIS W/MICROSCOPIC NO CULTURE (03/23/2019 2:06 PM STAND IN) Color UA Yellow Straw, Yellow, Colorless 03/23/2019 2:20 PM STAND IN [facility] Clarity UA Slt Cloudy Clear, Slt Cloudy 03/23/2019 2:20 PM STAND IN [facility] Specific Sunman UA 1.005 1.005 - 1.030 03/23/2019 2:20 PM [facility] pH UA 6.0 5.0 - 8.0 pH 03/23/2019 2:20 PM [facility] Protein UA Negative Negative mg/dL 03/23/2019 2:20 PM [facility] Glucose UA Negative Negative mg/dL 03/23/2019 2:20 PM [facility] Ketone UA Negative Negative mg/dL 03/23/2019 2:20 PM [facility] Bilirubin UA Negative Negative mg/dL 03/23/2019 2:20 PM [facility] Blood UA Negative Negative 03/23/2019 2:20 PM [facility] Nitrite UA Negative Negative 03/23/2019 2:20 PM [facility] Leukocyte Esterase Negative Negative 03/23/2019 2:20 PM [facility] Urobilinogen UA Negative Negative mg/dL 03/23/2019 2:20 PM [facility] RBC UA 0-2 None Seen, 0-2, 3-5 /HPF 03/23/2019 2:20 PM [facility] WBC UA 0-5 None Seen, 0-5 /HPF 03/23/2019 2:20 PM [facility] Bacteria UA Trace None, Trace /HPF 03/23/2019 2:20 PM [facility] Squamous Epithelial Cells UA 0-2 None Seen, 0-2 /HPF 03/23/2019 2:20 PM [facility] Urine URINE SPECIMEN OBTAINED BY CLEAN CATCH PROCEDURE / Unknown Collection / Unknown 03/23/2019 2:06 PM STAND IN 03/23/2019 2:09 PM STAND IN Narrative [facility] - 03/23/2019 2:20 PM STAND IN Sima Velazquez PA-C LAB - URINAL YSIS ORDERABLES [address] [phone] * (ABNORMAL) COMPREHENSIVE METABOLIC PANEL (03/23/2019 12:23 PM STAND IN) Only the most recent of2 resultswithin the time period is included. BUN 12 7 - 26 mg/dL 03/23/2019 12:44 PM [facility] Creatinine 0.8 0.6 - 1.2 mg/dL 03/23/2019 12:44 PM [facility] Sodium 134(L) 136 - 145 mmol/L 03/23/2019 12:44 PM [facility] Potassium 4.2 3.5 - 4.5 mmol/L 03/23/2019 12:44 PM [facility] Chloride 100 98 - 107 mmol/L 03/23/2019 12:44 PM [facility] CO2 23 22 - 29 mmol/L 03/23/2019 12:44 PM [facility] Glucose 91 70 - 115 mg/dL 03/23/2019 12:44 PM [facility] Calcium 9.8 8.4 - 10.2 mg/dL 03/23/2019 12:44 PM [facility] Protein Total 7.9 6.0 - 8.3 g/dL 03/23/2019 12:44 PM [facility] Albumin 4.1 3.4 - 5.0 g/dL 03/23/2019 12:44 PM [facility] Bilirubin Total 0.5 0.2 - 1.2 mg/dL 03/23/2019 12:44 PM [facility] Alkaline Phosphatase 82 40 - 150 Units/L 03/23/2019 12:44 PM [facility] ALT 17 0 - 55 Units/L 03/23/2019 12:44 PM [facility] AST 14 5 - 34 Units/L 03/23/2019 12:44 PM [facility] Anion Gap 15 8 - 18 03/23/2019 12:44 PM [facility] BUN/Creatinine Ratio 15 7 - 23 03/23/2019 12:44 PM [facility] Osmolality Calculated 277 270 - 300 mOsm/kg 03/23/2019 12:44 PM [facility] Albumin/Globulin Ratio 1.1 1.1 - 2.3 03/23/2019 12:44 PM [facility] eGFR >60 >60 mL/min/1.7 3 m2 03/23/2019 12:44 PM [facility] Blood BLOOD SPECIMEN / Unknown Venipuncture / Unknown 03/23/2019 12:23 PM STAND IN 03/23/2019 12:26 PM [facility] Sima Velazquez PA-C LAB - CHEMIS TRY ORDERABLES [address] [phone] * CT HEAD WO CONTRAST (03/23/2019 11:36 AM STAND IN) Anatomical Region Laterality Modality Head Computed Tomogra phy 03/23/2019 11:3 7 AM STAND IN Impressions 03/23/2019 11:44 AM STAND IN IMPRESSION: No acute intracranial CT abnormality. Dictated by Kwaku Bañuelos MD (cardiac cath lab radiology technologist). Dr. JESSI Chavez have personally reviewed and interpreted this examination/study. This report was electronically signed by JESSI OLEA ??on 03/23/2019 11:44 AM . Narrative 03/23/2019 11:44 AM STAND IN EXAM: CT HEAD WO CONTRAST CLINICAL INDICATION: [...] CT abnormality. Dictated by Kwaku Bañuelos MD (cardiac cath lab radiology technologist). Dr. JESSI Chavez have personally reviewed and interpreted this examination/study. This report was electronically signed by JESSI OLEA on 03/23/2019 11:44 AM . Kevin Meng MD CT ORDERABLES * STRESS TEST TREADMILL (NO IMAGING) (01/17/2015 9:33 AM STAND IN) [facility] Stress Test Summary For full formatted report, [...] stress study. Confirmed by MD Lisseth, Joe ([id number]) on 01/22/2015 7:36:09 AM Attending Physician: Shelby SolomonC Referred By: ??Jerry KIM Cumberledge ? Overread By: Joe Montanez MD [facility] STRESS 01/17/2015 9:33 AM STAND IN 01/22/2015 7:36 AM STAND IN Sam Dubon MD CARDIAC SERVICES ORD ERABLES [facility] STRESS * D-DIMER (01/08/2015 11:53 AM CDT) Pathologist [facility] D-Dimer 0.36 <0.50 mcg/mL FE[facility] ESTELLA Comment: [...] 11:[id number](2):199-207] For additional information, please refer to: http://education.Timeliner/faq/XHM419 (This link is being provided for informational/ educational purposes only) Test Performed at: [employer] [id number] [place], [place] ??[id number] ENRICO VALDEZ DO,MPH Blood specimen (specimen) BLOOD SPECIMEN / Unknown 01/08/2015 11:53 AM CDT 01/08/2015 11:53 AM CDT Sam Dubon MD LAB - COAGULATION OR DERABLES Performing Organization Address City/State/[facility] Co de Phone Number [facility] [[email or web address]] [id number] [place] [address] * TROPONIN I (01/08/2015 11:52 AM CDT) Only the most recent of4 resultswithin the time period is included. [facility] Troponin I <0.01 < OR = 0.05 ng/mL ESTELLA Comment: In accord with published recommendations, serial testing of troponin I at intervals of 2 to 4 hours for up to 12 to 24 hours is suggested in order to corroborate a single troponin I result. An elevated troponin alone is not sufficient to make the diagnosis of [place]. Test Performed at: [employer] [address] [place] [address] ??[phone] ENRICO VALDEZ DO,MPH Blood specimen (specimen) BLOOD SPECIMEN / Unknown 01/08/2015 11:52 AM CDT 01/08/2015 11:52 AM CDT Sam Dubon MD LAB - CHEMISTRY MALIA IRVIN Performing Organization Address [facility] de Phone Number [facility] [[email or web address]] [address] [place] [address] * HEPATIC FUNCTION PANEL (01/08/2015 11:52 AM CDT) Pathologist [facility] Protein Total 7.3 6.1 - 8.1 g/dL [...] 46 U/L [facility] Comment: Test Performed at: [employer] [address] ??[phone] ENRICO VALDEZ DO,MPH Blood specimen (specimen) BLOOD SPECIMEN / Unknown 01/08/2015 11:52 AM CDT 01/08/2015 11:52 AM CDT Sam Dubon MD LAB - CHEMISTRY MALIA IRVIN Performing Organization Address [facility] de Phone Number [facility] [[email or web address]] [address] [place] [address] * LAB RESULTS ORDER (12/12/2014) Jerry Fatima [...] - 200 U/L 12/05/2014 2:46 PM CDT [facility] Comment: CK-[facility] Not Performed. Blood BLOOD SPECIMEN / Unknown Lab Venipuncture / Unknown 12/05/2014 2:20 PM CDT 12/05/2014 2:20 PM CDT Anamaria Pham MD LAB - CHEMISTRY ORDERABLES Performing Organization Address [facility] de Phone Number [facility] [address] Care Teams On Air Director Relationship Specialty Start Date End Date Clara Stanley, FUEL EFFICIENT AIRCRAFT DESIGNER-DIRECTOR OF SOCIAL WORK [address] [place] [phone] PCP - General Nurse Practitioner 03/23/19
--- OUTSIDE RECORDS SUMMARY | 2024-03-02 03:58 | XMS_ITS | Encounter Summary ---
Author Organization [facility] Address [facility] [place] [address] Care Team Providers Care Interactive Developer Name Role Phone Clara Stanley Riacrdo FRAZIERN-RAW STOCK MACHINE FEEDER Primary Care Provider Reason for Visit * Reason Onset Date Comments Refill Request 10/03/2019 Encounter Details Date Type Department Care Team (Late st Contact Info) Description 10/03/2019 Telephone [facility] [address] [place] [address] Alexander Haley MD [address] [facility] 2L DEPT OF OPHTHALMOLOGY [place], [place] Refill Request Social History Tobacco Use [...] diplopia). Alexander Haley MD Ophthalmology PGY-4 Pager: [phone] 10/03/2019 3:07 PM documented in this encounter Plan of Treatment Not on file documented as of this encounter Visit Diagnoses Not on filedocumented in this encounter Care Teams Interactive Developer Relationship Specialty Start Date End Date Clara Stanley, SURGICAL SERVICES ASSISTANT-RAW STOCK MACHINE FEEDER [address] [place] [phone] PCP - General Nurse Practitioner 03/23/19 documented as of this encounter
--- OUTSIDE RECORDS SUMMARY | 2024-03-02 03:58 | XMS_ITS | Encounter Summary ---
Author Organization [facility] Address [address] [facility] [address] Care Team Providers Care Barrel Assembler Name Role Phone Jerry Fatima MD Primary Care Provide r Reason for Referral * Procedure - Closed Specialty Diagnoses / Procedures Referred By Contac t Referred To Contact Cardiology Diagnoses Chest pain, unspecified chest pain type Procedures EKG 12-LEAD Sam Dubon MD [address] [place] [id number] Referral ID Status Reason Start Date Expiration Date Visits Re quested Visits Authorized [id number] Closed 01/11/2015 07/10/2015 1 1 * Cardiac - Closed Specialty Diagnoses / Procedures Referred By Contac t Referred To Contact Cardiology Diagnoses Chest pain, unspecified chest pain type Procedures STRESS TEST TREADMILL (NO IMAGING) Sam Dubon MD [address] [place], [place] [address]EVUE Rafi [facility] [address] [place] [address] Referral ID Status Reason Start Date Expiration Date Visits Re quested Visits Authorized [id number] Closed 01/08/2015 07/07/2015 1 1 Reason for Visit * Reason Comments Establish Care * Cardiac (Routine) - Closed Specialty Diagnoses / Procedures Referred By Contact Referred To Contact Cardiovascular Disease / Cardiology Diagnoses Other chest pain Procedures [facility] OFFICE CON[facility] OFFICE/OUTPT VISIT,MELISSA PETERSEN III, Jon Michael, MD [address] [phone] Sam Dubon MD [address] [place] [address] Referral ID Status Reason Start Date Expiration Date Visits Re quested Visits Authorized [id number] Closed 12/19/2014 12/19/2015 12 12 Encounter Details Date Type Department Care Team (Late st Contact Info) Description 01/08/2015 9:45 AM CDT Office Visit [facility] [address] [place] [address] [address] [place] [address] Sam Dubon MD [address] [place] [address] Chest pain, unspecified chest pain type (Primary [...] understanding. Zoila Tolbert MA 01/15/2015 4:47 PM EL 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 * Cammie Alcaraz RN - 01/15/2015 3:23 PM CSTQuick Note: Second call placed to patient to review recent blood work. LMOM. Awaiting return call. Cammie Alcaraz RN EL 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 * Cammie Alcaraz RN - 01/11/2015 3:39 PM CDTQuick Note: Mr. Kulkarni was contacted to review blood work results. LMOM. Awaiting return call. Cammie Alcaraz RN * Sam Dubon MD - 01/09/2015 11:07 PM CDTQuick Note: Trop-I and ddimer tests are normal * Sam Dubon MD - 01/08/2015 10:11 AM CDT Kwaku Kulkarni : 1965 Age: 49 y.o. [facility] [place] - Cardiology Consult Date of Consult: 01/08/2015 Patient's Primary Care Physician: Jerry Fatima MD Physician Requesting Consult: Kushal Indication for Consultation: Chest pain History of Present Illness: Mr. Kulkarni is a 49-year-old pleasant white male who was recently seen in the emergency room at [facility]. He was kept overnight for observation. His [...] mild epigastric pain. EKG is nondiagnostic for [place]/ischemia 2. Abnormal EKG 3. Morbid obesity 4. [...] question or concerns. Sam Dubon MD, FAC, [facility] master scheduler [facility] Heart institute Office documented [...] TEST TREADMILL (NO IMAGING) (01/17/2015 9:33 AM TINSEL 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) Stress Test Summary For full formatted report, [...] Cumberledge ? Overread By: Joe Montanez MD [facility] STRESS 01/17/2015 9:33 AM TINSEL 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 01/22/2015 7:36 AM TINSEL 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 Sam Dubon MD CARDIAC SERVICES ORD ERABLES Performing Organization Address [facility] Co de Phone Number [facility] STRESS * [...] [phone]] For additional information, please refer to: http://[email or web address]/faq/[email or web address] (This link is being provided for informational/ educational purposes only) Test Performed at: [employer] [address] [place] [address] ??[phone] ENRICO VALDEZ DO,MPH Blood specimen (specimen) BLOOD SPECIMEN / Unknown 01/08/2015 11:53 AM CDT 01/08/2015 11:53 AM CDT Sam Dubon MD LAB - COAGULATION OR DERABLES Performing Organization Address [facility] Co de Phone Number [facility] [address] [place] [address] * HEPATIC FUNCTION PANEL (01/08/2015 11:52 AM [...] 46 U/L [facility] Comment: Test Performed at: [employer] [facility] [address] [place], [place] ??[phone] ENRICO VALDEZ DO,MPH Blood specimen (specimen) BLOOD SPECIMEN / Unknown 01/08/2015 11:52 AM CDT 01/08/2015 11:52 AM CDT Sam Dubon MD LAB - CHEMISTRY MALIA IRVIN Performing Organization Address [facility] de Phone Number [facility] [address] [place] [address] * TROPONIN I (01/08/2015 11:52 AM CDT) [...] not sufficient to make the diagnosis of [place]. Test Performed at: [employer] [address] [place] [address] ??[phone] ENRICO VALDEZ DO,MPH Blood specimen (specimen) BLOOD SPECIMEN / Unknown 01/08/2015 11:52 AM CDT 01/08/2015 11:52 AM CDT Sam Dubon MD LAB - CHEMISTRY MALIA IRVIN Performing Organization Address [facility] Co de Phone Number [facility] [address] [place] [address] * EKG 12-LEAD (01/08/2015) Impressions Zachary Rikbebeto R - 01/08/2015 Sinus rhythm with borderline 1st degree A-V block. Poor R wave progression- probable normal variant Septal T wave changes are nonspecific Borderline ECG Agree- Sam Dubon MD ECG ORDERABLES documented in this encounter Visit Diagnoses Diagnosis Chest pain, unspecified chest pain type- Primary documented in this encounter Care Teams Barrel Assembler Relationship Specialty Start Date End Date Jerry Fatima MD PCP - General Family Medicine 12/05/14 03/22/19 documented as of this encounter
--- OUTSIDE RECORDS SUMMARY | 2024-03-02 03:58 | XMS_ITS | Encounter Summary ---
Author Organization [facility] Address [address] [facility] [address] Care Team Providers Care Allergist/Immunologist Physician Name Role Phone Clara Stanley Ricardo POWER PRESS TENDER-COUNCILOR Primary Care Provider Encounter Details Date Type Department Care Team (Late st Contact Info) Description 10/03/2019 Orders Only [facility] [address] [place] [address] Alexander Haley MD [address] [facility] 2L DEPT OF OPHTHALMOLOGY [place], [place] Social History Tobacco Use Types Packs/Day [...] on filedocumented in this encounter Care Teams Allergist/Immunologist Physician Relationship Specialty Start Date End Date Clara Stanley APRN-COUNCILOR [address] [place] [address] PCP - General Nurse Practitioner 03/23/19 documented as of this encounter
--- OUTSIDE RECORDS SUMMARY | 2024-03-02 03:58 | XMS_ITS | Encounter Summary ---
Author Organization [facility] Address [address] [facility] [place] [address] Care Team Providers Care Medical Assisting Program Director Name Role Phone Jerry Fatima MD Primary Care Provide r Reason for Visit * Reason Comments Chest Pain * Cardiac (Routine) - Closed Specialty Diagnoses / Procedures Referred By Contact Referred To Contact Cardiovascular Disease / Cardiology Diagnoses Other chest pain Procedures [place] OFF[facility] OFFICE/OUTPT VISIT,EST,LEVL III Jerry Fatima MD [address] [place] [address] Sam Dubon MD [address] [place] [address] Referral ID Status Reason Start Date Expiration Date Visits Re quested Visits Authorized [id number] Closed 12/19/2014 12/19/2015 12 12 Encounter Details Date Type Department Care Team (Late st Contact Info) Description 02/20/2015 11:45 AM ASSOCIATE FINANCIAL ADVISOR Office Visit [facility] Heart [facility] Vascular Care [address] [place] [address] [address] [place] [address] Sam Dubon MD [address] [place] [phone] Essential hypertension (Primary Dx); Hyperlipidemia, unspecified [...] Comments Blood Pressure 128/86 02/20/2015 12:43 PM ASSOCIATE FINANCIAL ADVISOR Pulse 70 02/20/2015 12:43 PM ASSOCIATE FINANCIAL ADVISOR Temperature - - Respiratory Rate - - Oxygen Saturation - - Inhaled Oxygen Concentration - - Weight 152.6 kg (336 lb 6 oz) 02/20/2015 12:43 P M ASSOCIATE FINANCIAL ADVISOR Height 190.5 cm (6' 3 ) 02/20/2015 12:43 PM ASSOCIATE FINANCIAL ADVISOR Body Mass Index 42.04 02/20/2015 12:43 PM ASSOCIATE FINANCIAL ADVISOR documented in this encounter Functional Status Functional [...] 12:51 PM CST Carlos Kwaku Kulkarni 1965 [facility] [place] [facility] Progress Note Follow up for: hospital [...] results for input(s): TROPPOCT in the last [id number] hours. Recent Labs Component Name 12/05/14 1416 [...] call if there are any questions. Sam Dubon MD, FAC, [facility] dock loader [facility] Heart institute Office CIATE FINANCIAL ADVISOR documented in this encounter Plan of Treatment Not on file documented as of this encounter Visit Diagnoses Diagnosis Essential hypertension- Primary Hyperlipidemia, unspecified hyperlipidemia Morbid obesity, unspecified obesity type (HCC) documented in this encounter Care Teams Medical Assisting Program Director Relationship Specialty Start Date End Date Jerry Fatima MD PCP - General Family Medicine 12/05/14 03/22/19 documented as of this encounter
--- OUTSIDE RECORDS SUMMARY | 2024-03-02 03:58 | XMS_ITS | Encounter Summary ---
Author Organization [facility] Address [facility] [facility] [place] [address] Care Team Providers Care Disability Program Navigator Name Role Phone Lizeth Clara Silva LINE DIRECTOR-MANAGER Primary Care Provider Reason for Visit * Reason Comments Headache Encounter Details Date Type Department Care Team (Late st Contact Info) Description 04/15/2019 2:15 PM LABORATORY IMMUNOLOGIST Office Visit [facility] Ophthalmology [address] [place] [address] Optic disc edema (Primary Dx); Papilledema associated [...] 160.1 kg (353 lb) 04/15/2019 4:11 PM LABORATORY IMMUNOLOGIST Height - - Body Mass Index 44.12 03/23/2019 10:50 AM LABORATORY IMMUNOLOGIST documented in this encounter Functional Status Functional [...] est neuro in 4-6 weeks. thanks Nevin RATORY IMMUNOLOGIST * Patel Williamson - 04/15/2019 4:20 PM [...] plan. Patel Williamson MD PGY-2, Ophthalmology resident RATORY IMMUNOLOGIST Associated attestation - Diego Valdes MD - 04/16/2019 5:17 PM LABORATORY IMMUNOLOGIST I have examined the patient with the resident and agree with the assessment and plan, except as amended below. Patient diagnosed with papilledema in early March this year with normal neuroimaging and non-specific CSF pleocytosis. He was discharged from [facility] hospital 03/23/2019 on Diamox 500 mg PO [...] FIELD TEST [facility] Routine 04/15/2019 2:57 PM LABORATORY IMMUNOLOGIST Optic disc edema OPH OCT TEST [facility] Routine 04/15/2019 12:00 AM LABORATORY IMMUNOLOGIST Optic disc edema documented in this encounter Results * OPH VISUAL FIELD TEST [facility] (04/15/2019 2:57 PM LABORATORY IMMUNOLOGIST) Anatomical Region Laterality Modality Other 04/15/2019 2:57 PM LABORATORY IMMUNOLOGIST Noah Oneil MD OPHTHALMOLOGY SERVICES ORDERABLES * OCT (04/15/2019 12:00 AM LABORATORY IMMUNOLOGIST) Anatomical Region Laterality Modality Other 04/15/2019 Patel Williamson MD OPHTHALMOLOGY SER VICES ORDERABLES documented in this encounter Visit Diagnoses Diagnosis Optic disc edema- Primary Papilloedema, 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
--- OUTSIDE RECORDS SUMMARY | 2024-03-02 03:58 | XMS_ITS | Encounter Summary ---
Author Organization [facility] Address [address] [place] [address] Care Team Providers Care Quarry Supervisor Dimension Stone Name Role Phone Jerry Fatima MD Primary Care Provide r Reason for Visit * Reason Comments Chest Pain * Auth/Cert Specialty Diagnoses / Procedures Referred By Contac t Referred To Contact Diagnoses Chest pain Referral ID Status Reason Start Date Expiration Date Visits Re quested Visits Authorized [id number] 1 1 Encounter Details Date Type Department Care Team (Late st Contact Info) Description 12/05/2014 2:02 PM CDT - 12/06/2014 10:29 AM CDT Emergency [facility] 2 TELEMETRY [address] [place], [place] [id number] Anamaria Pham MD [address] [place], [place] [address] Gil Retana MD [address] [place] [address] Emergency Medicine Discharge Disposition: Home or Self [...] were not included. Amlodipine (By mouth) Amlodipine (kg-RRD-pn-perichardson) Treats high blood pressure and angina (chest [...] pharmacist before using any other medicine, including wmaz-gfb-rejymcn medicines, vitamins, and herbal products. ?? Some [...] may report side effects to FDA at 7-633-TRK-4998 ?? 2014 [employer]. Information is for End User's use only and may not be sold, redistributed or otherwise used for commercial purposes. The above information is an nutrition services aide only. It is not intended as medical advice for individual conditions or treatments. Talk to your doctor, nurse or pharmacist before following any medical regimen to see if it is safe and effective for you. Atorvastatin (By mouth) Atorvastatin (b-jju-ku-STAT-in) Treats high cholesterol and triglyceride levels. Reduces [...] pharmacist before using any other medicine, including uken-grx-qcjranp medicines, vitamins, and herbal products. ?? Some [...] may report side effects to FDA at 7-556-SGP-0406 ?? 2014 [employer]. Information is for End User's use only and may not be sold, redistributed or otherwise used for commercial purposes. The above information is an nutrition services aide only. It is not intended as [...] is made with liquid vegetable oil. ?? Central-3 fat is found in certain fish, such [...] program without asking your caregiver. ?? 2014 [employer]. Information is for End User's use only and may not be sold, redistributed or otherwise used for commercial purposes. All illustrations and images included in CareNotes?? are the copyrighted property of [employer]. or [employer]. The above information is an nutrition services aide only. It is not intended as [...] referred to a specialist, such as a screw machine operator single spindle or key maker. Write down your questions so you remember [...] or it hurts to swallow. ?? 2015 [employer]. Information is for End User's use only and may not be sold, redistributed or otherwise used for commercial purposes. All illustrations and images included in CareNotes?? are the copyrighted property of [employer]. or [employer]. The above information is an nutrition services aide only. It is not intended as [...] any chest pain. Discharge teaching completed per senior planner. * Hernandez Lucia RN - 12/06/2014 [...] Retana MD - 12/06/2014 9:48 [place] [address] History and Physical Patient: MP KULKARNI Patient Class: OPO CSN: [id number] Bday/Age: 02 1965 49 Stn/Rm/Bed: [place] [address] 1 Sex/Race: M Unit #: [id number] Patient Adrs: 522 T[address] ALMA Prim Phys: Attend Phys: GIL RETANA M.D. [facility] Facility: [place] [address] Admit Date: December 05, 2014 Disch To: [...] the patient in detail. He lives in [facility]. He has a primary physician, Dr. Jerry Fatima. RECOMMENDATION: For patient to have a stress test and echocardiogram. Along with that, at this timebeing on a statin. Blood pressure has been high. I discussed with him I will start him on amlodipine 5 mg once a day. We will hold off on beta marva because of his bradycardia. Will suggest [id number] mg 2 tablets a day. The patient [...] mg 2 tablets a day. Tara Ventura/CAESAR /[id number] cc: Jerry Fatima M.D. [address] [address] Gil Retana M.D. [address] [place] [address] Fax: [phone] GIL RETANA M.D. HISTORY AND PHYSICAL documented [...] with the patient: 12/05/2014 14:13 Mp Kulkarni [id number] [facility] EMERGENCY DEPARTMENT History Chief Complaint Patient presents [...] 40.0-75.0 % Lymph 17.5 (L) 19.3-53.1 % Desha 7.9 4.7-12.5 % Eos 4.9 0.7-7.0 % Baso 0.4 0.1-1.2 % Immature Grans 0.5 0-0.5 % Neutro Abs 7.38 (H) 1.56-6.13 x10^9/L Lymph Abs 1.87 1.18-3.74 x10^9/L Desha Abs 0.85 0.24-0.86 x10^9/L Eosin Abs 0.52 [...] <0.012 <=0.049 ng/mL 12/05/2014 8:23 PM CDT [facility] Blood BLOOD SPECIMEN / Unknown Lab Venipuncture / Unknown 12/05/2014 7:55 PM CDT 12/05/2014 7:58 PM CDT Narrative [facility] - 12/05/2014 8:23 PM CDT Note: [...] LAB - CHEMISTRY ORDERABLES Performing Organization Address [facility] Co de Phone Number [facility] [address] * TROPONIN I (12/05/2014 4:46 PM CDT) [facility] Troponin I <0.012 <=0.049 ng/mL 12/05/2014 5:19 PM CDT [facility] Blood BLOOD SPECIMEN / Unknown Lab Venipuncture / Unknown 12/05/2014 4:46 PM CDT 12/05/2014 4:49 PM CDT Narrative [facility] - 12/05/2014 5:19 PM CDT Note: [...] LAB - CHEMISTRY ORDERABLES Performing Organization Address [facility] Co de Phone Number [facility] [address] * XR CHEST 1VW PORTABLE (12/05/2014 [...] W CKMB REFLEX (12/05/2014 2:20 PM CDT) [facility] CK 80 30 - 200 U/L 12/05/2014 2:46 PM CDT [facility] Comment: CK-MB Not Performed. Blood BLOOD SPECIMEN / Unknown Lab Venipuncture / Unknown 12/05/2014 2:20 PM CDT 12/05/2014 2:20 PM CDT Anamaria Pham MD LAB - CHEMISTRY ORDERABLES Performing Organization Address [facility] Co de Phone Number [facility] [address] * COMPREHENSIVE METABOLIC PANEL (12/05/2014 2:16 PM CDT) [facility] Glucose 88 70 - 125 mg/dL 12/05/2014 2:46 PM CDT [facility] Sodium 138 136 - 145 mmol/L 12/05/2014 2:46 PM CDT [facility] Potassium 3.9 3.4 - 4.5 mmol/L 12/05/2014 2:46 PM CDT [facility] Chloride 103 98 - 107 mmol/L 12/05/2014 2:46 PM CDT [facility] CO2 25 22 - 29 mmol/L 12/05/2014 2:46 PM CDT [facility] Calcium 9.8 8.4 - 10.2 mg/dL 12/05/2014 2:46 PM CDT [facility] Anion Gap 14 10 - 20 mmol/L 12/05/2014 2:46 PM CDT [facility] BUN 14.1 8.4 - 25.7 mg/dL 12/05/2014 2:46 PM CDT [facility] Creatinine 0.85 0.72 - 1.25 mg/dL 12/05/2014 2:46 PM CDT [facility] eGFR by MDRD >60 >60 mL/min/1.7 3m2 12/05/2014 2:46 PM CDT [facility] eGFR by MDRD >60 >60 mL/min/1.7 3m2 12/05/2014 2:46 PM CDT [facility] Alkaline Phosphatase 95 40 - 150 U/L 12/05/2014 2:46 PM CDT [facility] ALT 16 5 - 55 U/L 12/05/2014 2:46 PM CDT [facility] AST 20 5 - 34 U/L 12/05/2014 2:46 PM CDT [facility] Protein Total 7.6 6.4 - 8.3 gm/dL 12/05/2014 2:46 PM CDT [facility] Albumin 3.8 3.5 - 5.0 gm/dL 12/05/2014 2:46 PM CDT [facility] Globulin Total 3.8 2.6 - 4.0 gm/dL 12/05/2014 2:46 PM CDT [facility] Albumin/Globulin Ratio 1.0 0.9 - 1.6 12/05/2014 2:46 PM CDT [facility] Bilirubin Total 0.5 0.2 - 1.2 mg/dL 12/05/2014 2:46 PM CDT [facility] Blood BLOOD SPECIMEN / Unknown Lab Venipuncture / Unknown 12/05/2014 2:16 PM CDT 12/05/2014 2:19 PM CDT Anamaria Pham MD LAB - CHEMISTRY ORDERABLES Performing Organization Address [facility] Co de Phone Number [facility] [address] * (ABNORMAL) CBC W AUTO DIFFERENTIAL (12/05/2014 2:16 PM CDT) WBC 10.7(H) 4.0 - 10.0 x10^9/L 12/05/2014 2:23 PM [facility] RBC 4.55 4.40 - 6.10 x10^12/L 12/05/2014 2: PM [facility] Hemoglobin 13.3(L) 13.7 - 17.5 gm/dL 12/05/2014 2: PM [facility] Hematocrit 39.7(L) 40.1 - 51.0 % 12/05/2014 2: PM [facility] MCV 87.3 78.0 - 100.0 fl 12/05/2014 2: PM [facility] MCH 29.2 25.6 - 34.0 pg 12/05/2014 2: PM [facility] MCHC 33.5 32.3 - 36.5 gm/dL 12/05/2014 2: PM [facility] RDW 13.7 11.6 - 14.4 % 12/05/2014 2: PM [facility] MPV 11.8 9.4 - 12.4 fl 12/05/2014 2: PM [facility] Platelet Count 231 163 - 369 x10^9/L 12/05/2014 2: PM [facility] Neutrophils % 68.8 40.0 - 75.0 % 12/05/2014 2: PM [facility] Lymphocytes % 17.5(L) 19.3 - 53.1 % 12/05/2014 2: PM [facility] Monocytes % 7.9 4.7 - 12.5 % 12/05/2014 2: PM [facility] Eosinophils % 4.9 0.7 - 7.0 % 12/05/2014 2: PM [facility] Basophils % 0.4 0.1 - 1.2 % 12/05/2014 2: PM [facility] Immature Granulocytes 0.5 0 - 0.5 % 12/05/2014 2: PM [facility] Neutrophil Absolute 7.38(H) 1.56 - 6.13 x10^9/L 12/05/2014 2: PM [facility] Lymphocytes Absolute 1.87 1.18 - 3.74 x10^9/L 12/05/2014 2: PM [facility] Monocytes Absolute 0.85 0.24 - 0.86 x10^9/L 12/05/2014 2:23 PM CDT [facility] Eosinophils Absolute 0.52 0.04 - 0.54 x10^9/L 12/05/2014 2:23 PM CDT [facility] Basophils Absolute 0.04 0.01 - 0.08 x10^9/L 12/05/2014 2:23 PM CDT [facility] Immature Granulocytes Absolute 0.05(H) 0 - 0.03 x10^9/L 12/05/2014 2:23 PM CDT [facility] nRBC Auto 0 <=0 /100 WBC 12/05/2014 2:23 PM CDT [facility] nRBC Absolute 0.00 <=0 x10^9/L 12/05/2014 2:23 PM CDT [facility] Blood BLOOD SPECIMEN / Unknown Lab Venipuncture / Unknown 12/05/2014 2:16 PM CDT 12/05/2014 2:19 PM CDT Anamaria Pham MD LAB - HEMATOLOGY ORDERABLES Performing Organization Address [facility] de Phone Number [facility] [address] [place] [address] * TROPONIN I (12/05/2014 2:16 PM CDT) [facility] Troponin I <0.012 <=0.049 ng/mL 12/05/2014 2:54 PM CDT [facility] Blood BLOOD SPECIMEN / Unknown Lab Venipuncture / Unknown 12/05/2014 2:16 PM CDT 12/05/2014 2:19 PM CDT Narrative [facility] - 12/05/2014 2:54 PM CDT Note: [...] LAB - CHEMISTRY ORDERABLES Performing Organization Address [facility] de Phone Number [facility] [address] [place], [place] [phone] [place] [address] * EKG 12-LEAD (12/05/2014 2:07 PM CDT) Ventricular Rate 52 BPM [facility] Atrial Rate 52 BPM [facility] P-R Interval 218 ms [facility] QRS Duration ms 84 ms [facility] Q-T Interval ms 428 ms [facility] QTC Calculation (Bezet) 398 ms [facility] Calculated P [place] 11 degrees [facility] Calculated R [place] -8 degrees [facility] Calculated T [place] 17 degrees [facility] M[facility] Interpretation EKG SINUS BRADYCARDIA WITH 1ST DEGREE A-V BLOCK RSR' OR QR PATTERN IN V1 SUGGESTS RIGHT VENTRICULAR CONDUCTION DELAY BORDERLINE ECG NO PREVIOUS ECGS AVAILABLE Confirmed by GLENN KIM, [facility] ([id number]), design editor EROS TORRES ([id number]) on 12/06/2014 7:45:59 AM [facility] MUSE 12/05/2014 2:07 PM CDT 12/06/2014 7:45 AM CDT Anamaria Pham MD ECG ORDERABLES [facility] M[facility] documented in this encounter Visit Diagnoses [...] not crush, chew, or cut in half. 0801 ($ Given - Provider: Jesse Singh RN) [...] 4 doses if chest pain not relieved. 1427 ($ Given - Provider: Mariel Lomeli RN) documented in this encounter Care Teams Quarry Supervisor Dimension Stone Relationship Specialty Start Date End Date Jerry Fatima MD PCP - General Family Medicine 12/05/14 03/22/19 documented as of this encounter
--- OUTSIDE RECORDS SUMMARY | 2024-03-02 03:58 | XMS_ITS | Encounter Summary ---
Author Organization [facility] Address [address] [facility] [place] [address] Care Team Providers Care Microsystems Engineer Name Role Phone Jerry Fatima MD Primary Care Provide r Reason for Visit * Cardiac - Closed Specialty Diagnoses / Procedures Referred By Contac t Referred To Contact Cardiology Diagnoses Chest pain, unspecified chest pain type Procedures STRESS TEST TREADMILL (NO IMAGING) Sam Dubon MD [facility] [address] Referral ID Status Reason Start Date Expiration Date Visits Re quested Visits Authorized [id number] Closed 01/08/2015 07/07/2015 1 1 Encounter Details Date Type Department Care Team (Latest Contact Info) Description 01/17/2015 9:15 AM TRANSFORMER ASSEMBLY SUPERVISOR - 01/17/2015 11:59 PM TRANSFORMER ASSEMBLY SUPERVISOR Hospital Encounter [facility] Heart [facility] Vascular Care [address] [place] [address] Sam Dubon MD [address] [place] [address] Discharge Disposition: Home or Self Care [...] any questions or concerns. Cammie Alcaraz RN SFORMER ASSEMBLY SUPERVISOR * Sam Dubon MD - 01/25/2015 10:53 AM CSTQuick Note: Stress test is negative for ischemia Clinical FU SFORMER ASSEMBLY SUPERVISOR documented in this encounter Plan of Treatment Not on file documented as of this encounter Procedures Procedure Name Priority Date/Time Associated Diagnosis Comments STRESS TEST TREADMILL (NO IMAGING) Routine 01/17/2015 9:33 AM TRANSFORMER ASSEMBLY SUPERVISOR Chest pain, unspecified chest pain type documented in this encounter Results * STRESS TEST TREADMILL (NO IMAGING) (01/17/2015 9:33 AM TRANSFORMER ASSEMBLY SUPERVISOR) Stress Test Summary For full formatted report, [...] stress study. Confirmed by MD Montanez Mark ([id number]) on 01/22/2015 7:36:09 AM Attending Physician: Shelby Solomon Referred By: ??Jerry KIM Cumberledge ? Overread By: Joe Montanez MD [facility] STRESS 01/17/2015 9:33 AM TRANSFORMER ASSEMBLY SUPERVISOR 01/22/2015 7:36 AM TRANSFORMER ASSEMBLY SUPERVISOR Sam Dubon MD CARDIAC SERVICES ORD ERABLES [facility] STRESS documented in this encounter Visit Diagnoses Diagnosis Chest pain, unspecified chest pain type documented in this encounter Care Teams Microsystems Engineer Relationship Specialty Start Date End Date Jerry Fatima MD PCP - General Family Medicine 12/05/14 03/22/19 documented as of this encounter
--- OUTSIDE RECORDS SUMMARY | 2024-03-02 03:58 | XMS_ITS | Encounter Summary ---
Author Organization [facility] Address [address] [facility] [place] [address] Care Team Providers Care Technical Solutions Engineer Name Role Phone LizethClara byrd Ricardo SENIOR LOAN OFFICER-CLOTH SPREADER SCREEN PRINTING Primary Care Provider Encounter Details Date Type Department Care Team (Late st Contact Info) Description 06/08/2020 Orders Only [facility] - COVID Vaccine [address] [place] [id number] Wayne Buckner MD [address] [place] [address] Need for vaccination Social History Tobacco Use [...] disease documented in this encounter Care Teams Technical Solutions Engineer Relationship Specialty Start Date End Date Clara Stanley, SENIOR LOAN OFFICER-CLOTH SPREADER SCREEN PRINTING [address] [place] [id number] PCP - General Nurse Practitioner 03/23/19 documented as of this encounter
--- OUTSIDE RECORDS SUMMARY | 2024-03-02 03:58 | XMS_ITS | Encounter Summary ---
Author Organization 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 Cholecalciferol 1.25 MG (94410 UT) Take 50,000 Units by mouth ??? fluticasone propionate (FLONASE) 50 MCG/ACT nasal spray [place] 2 sprays into each nostril 2 times [...] Disc Sharp, pink, trace superior polar elevation Maria Stein, mild nasal elevation/blur C/D Ratio 0.05 0.05 [...] positive Had surgery with Dr. 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 documented in this encounter Results * OPH OCT TEST SLU (02/23/2020 11:28 AM SATELLITE TECHNICIAN) Anatomical Region Laterality Modality Other 02/23/2020 11:2 8 AM SATELLITE TECHNICIAN Nevin Marshall MD OPHTHALMOLOGY SERVIC ES ORDERABLES documented in this encounter Visit Diagnoses Diagnosis Papilledema associated with increased intracranial pressure- Primary Optic disc edema Papilloedema, unspecified documented in this encounter Care Teams Retort Furnace Helper Relationship Specialty Start Date End Date Clara Stanley, BUSINESS SUPPORT ADMINISTRATOR-FIGHTER PILOT [address] [place] [address] PCP - General Nurse Practitioner 03/23/19 documented as of this encounter
--- OUTSIDE RECORDS SUMMARY | 2024-03-02 03:58 | XMS_ITS ---
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 Diet: ADAT Pain control: Epidural, D/c'd FERTILIZER MIXER. 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 Added automatically from request for surgery [id number] Added automatically from request for surgery [id number] Last Assessment & Plan: I will order [...] treatments are documented for this patient in [facility]. Treatments may have been administered in another system. Lifetime Dose Tracking * Chemical Lifetime Dose Automatic Entry Manual Entr y Dose Length Product 888 mGy-cm 888 mGy-cm 0 mGy-cm
--- OUTSIDE RECORDS SUMMARY | 2024-03-02 03:59 | XMS_ITS | Encounter Summary ---
Author Organization [facility] Address [address] [place] [address]. [place], [place] [address] [place] [address] Care Team Providers Care Billet Sawyer Name Role Phone Clara Stanley Primary Care Provider [phone] Dominick Mccloud MD Unavailable [phone] Alexis Lopez MD Unavailable [phone] Reason for Visit * Auth/Cert (Routine) Specialty Diagnoses / Procedures Referred By Erik t Referred To Contact Diagnoses FIFTH METATARSAL FRACTURE Procedures OPEN REDUCTION INTERNAL FIXATION FIFTH METATARSAL FRACTURE LEFT FOOT Antwan Stone DPM [address] [place] [address] Phone: tel: fax: Referral ID Status Reason Start Date Expiration Date Visits Re quested Visits Authorized [id number] 1 1 Encounter Details Date Type Department Care Team (Late st Contact Info) Description 01/28/2023 7:28 AM CLOTH PATTERN MAKER Anesthesia Event [facility] [place] [address] Ernesto Norton MD [address] [place] [address] [address] [place] [address] Shanelle Avila CNP 1 [place] [address] Anesthesia Record Procedure Summary Procedure Name Responsible Anesthesiologist Anesthesia Start Time Anesthesia Stop Time OPEN REDUCTION INTERNAL FIXATION FIFTH METATARSAL FRACTURE LEFT FOOT (Left: Foot) Ernesto Norton MD 01/28/23 0728 01/28/23 08 Events Date Time Event Comment 01/28/2023 0629 0629 AN Anesthesia Prepped 0708 AN BOBBIN SORTER Prepped 0728 An Start Patient ID and [...] Date: 01/28/23; Removal Time: 0815; Removal Person: BOBBIN SORTER; Removal Reason: End of Case 01/28/23 0734 by Jadyn Kessler CRNA 01/28/23 0815 by Jadyn Kessler CRNA [...] Ernesto Norton MD - 01/28/2023 9:38 AM CLOTH PATTERN MAKER Anesthesia Post-op Note Kwaku Kulkarni Procedure(s): OPEN [...] no known notable events for this encounter. H PATTERN MAKER * Anesthesia Preprocedure Evaluation - Ernesto Norton MD - 01/28/2023 6:17 AM CLOTH PATTERN MAKER Anesthesia ROS/MED History Reviewed: Patient summary , [...] COLONOSCOPY performed by Joe Medina DO at [facility] 03/28/2019: LUMBAR PUNCTURE 05/26/2019: REMOVAL OF LUNG,LOBECTOMY; [...] patient of whom consent was obtained. . H PATTERN MAKER documented in this encounter Plan of Treatment Upcoming Encounters Date Type Department Care Team (Late st Contact Info) Description 03/28/2024 7:30 AM CLOTH PATTERN MAKER Hospital Encounter [facility] [place] [address] Antwan Stone, DIEGO [address], [place] [address] 03/28/2024 7:30 AM CLOTH PATTERN MAKER Anesthesia Event [facility] [place] [address] Shanelle Avila, ALMOND SORTER 1 [place] [address] 03/28/2024 7:30 AM CLOTH PATTERN MAKER - 03/28/2024 8:48 AM CLOTH PATTERN MAKER Surgery [facility] [place] [address] Anwtan Stone, DIEGO [address] [place] [address] REMOVAL OF HARDWARE LEFT FOOT 04/05/2024 8:30 AM CLOTH PATTERN MAKER Office Visit Darren Chaudhari-O'F allon THREE [facility], [facility] [address] [place] [address] Dominick Mccloud MD Three [facility]. [facility] [address] [place] [address] Scheduled Procedures Name Priority Associated Diagnoses Date/Ti me REMOVAL PLATE SCREW OR PIN SCHED BY FAX 02/08/24 KAYLIE PHONE ASSESS 03/28/2024 7:30 AM CLOTH PATTERN MAKER documented as of this encounter Visit Diagnoses Not on filedocumented in this encounter Administered Medications Inactive Administered Medications - up to 3 most recent administrations Medication Order MAR Action Action Date Dose Rate Site ceFAZolin (ANCEF) 3 g in sodium chloride 0.9 % 100 mL IVPB 3 g, Intravenous, at 200 mL/hr, on call to O.R., 1 dose, First dose on Thu01/28/23 at 0615, Pre-OpIndications:Nondisplaced fracture of fifth left metatarsal bone with delayed healing New Bag 01/28/2023 7:38 AM CLOTH PATTERN MAKER 3 g dexamethasone (DECADRON) injection Intravenous, PRN, Starting on Thu01/28/23 at 0744, Until Thu01/28/23 at 0827, Anesthesia Intra-Op Given 01/28/2023 7:44 AM CLOTH PATTERN MAKER 8 mg fentaNYL (SUBLIMAZE) injection Intravenous, PRN, Starting on Thu01/28/23 at 0738, Until Thu01/28/23 at 0827, Anesthesia Intra-Op Given 01/28/2023 8:21 AM CLOTH PATTERN MAKER 25 mcg Given 01/28/2023 7:40 AM CLOTH PATTERN MAKER 25 mcg Given 01/28/2023 7:38 AM CLOTH PATTERN MAKER 50 mcg glycopyrrolate (ROBINUL) injection Intravenous, PRN, Starting on Thu01/28/23 at 0803, Until Thu01/28/23 at 0827, Anesthesia Intra-Op Given 01/28/2023 8:03 AM CLOTH PATTERN MAKER 0.1 mg lactated ringers infusion at 10 mL/hr, Intravenous, Continuous, Starting on Thu01/28/23 at 0645, Until Thu01/28/23 at 1234, Infuse at TKO rate, Pre-Op New Bag 01/28/2023 7:28 AM CLOTH PATTERN MAKER lidocaine (PF) (XYLOCAINE) 2 % injection Intravenous, PRN, Starting on Thu01/28/23 at 0733, Until Thu01/28/23 at 0827, Anesthesia Intra-Op Given 01/28/2023 7:33 AM CLOTH PATTERN MAKER 100 mg midazolam (VERSED) injection Intravenous, PRN, Starting on Thu01/28/23 at 0726, Until Thu01/28/23 at 0827, Anesthesia Intra-Op Given 01/28/2023 7:26 AM CLOTH PATTERN MAKER 2 mg ondansetron (ZOFRAN) injection Intravenous, PRN, Starting on Thu01/28/23 at 0809, Until Thu01/28/23 at 0827, Anesthesia Intra-Op Given 01/28/2023 8:09 AM CLOTH PATTERN MAKER 4 mg propofol (DIPRIVAN) IV bolus Intravenous, PRN, Starting on Thu01/28/23 at 0733, Until Thu01/28/23 at 0827, Anesthesia Intra-Op Given 01/28/2023 8:18 AM CLOTH PATTERN MAKER 10 mg Given 01/28/2023 8:16 AM CLOTH PATTERN MAKER 20 mg Given 01/28/2023 7:33 AM CLOTH PATTERN MAKER 220 mg documented in this encounter Additional Health Concerns Assessment Noted Time PHQ-9 Depression Total Score: 0 10/26/19 22 11:07 AM CDT documented as of this encounter Care Teams Billet Sawyer Relationship Specialty Start Date End Date Clara Stanley APNP [address] [place] [address] PCP - General NURSE PRACTITIONER 06/01/18 Dominick Mccloud MD [facility] [address] [place] [address] [place] Technician Support Engineer CARDIOVASCULAR DISEASE 03/28/19 Alexis Lopez MD [address] [address] PULMONARY DISEASE 10/21/19 documented as of this encounter
--- OUTSIDE RECORDS SUMMARY | 2024-03-02 03:59 | XMS_ITS | Encounter Summary ---
Author Organization [facility] Address [address] [place] [address]. [place], [place] [address] [place] [address] Care Team Providers Care Counter Help Name Role Phone Clara Stanley Primary Care Provider [phone] Dominick Mccloud MD Unavailable [phone] Alexis Lopez MD Unavailable [phone] Encounter Details Date Type Department Care Team [...] st Contact Info) Description 03/28/2024 7:30 AM [facility] Hospital Encounter [facility] One Day Services [place], [place] [id number] Antwan Stone DPM [address], [place] [address] 03/28/2024 7:30 AM RADIOLOGY TRANSPORTER Anesthesia Event [place] [address] Shanelle Avila, BICYCLE RENTAL CLERK 1 [place] [address] 03/28/2024 7:30 AM RADIOLOGY TRANSPORTER - 03/28/2024 8:48 AM RADIOLOGY TRANSPORTER Surgery [facility] [place] [address] Antwan Stone, DPM [address], [place] [address] REMOVAL OF HARDWARE LEFT FOOT 04/05/2024 8:30 AM RADIOLOGY TRANSPORTER Office Visit [facility] THREE [facility], [facility] [address] [place], [place] [address] Dominick Mccloud MD Three [facility]. [facility] [address] [place], [place] [address] Scheduled Procedures Name Priority Associated Diagnoses Date/Ti me REMOVAL PLATE SCREW OR PIN SCHED BY FAX 02/08/24 [facility] PHONE ASSESS 03/28/2024 7:30 AM RADIOLOGY TRANSPORTER documented as of this encounter Visit Diagnoses Not on filedocumented in this encounter Additional Health Concerns Assessment Noted Time PHQ-9 Depression Total Score: 0 10/26/19 22 11:07 AM CDT documented as of this encounter Care Teams Counter Help Relationship Specialty Start Date End Date Clara Stanley APNP [facility] [place] [address] PCP - General NURSE PRACTITIONER 06/01/18 Dominick Mccloud MD [facility]. [facility] [address] [place] [address] [place] Boiler Operator Helper CARDIOVASCULAR DISEASE 03/28/19 Alexis Lopez MD [address] [place] [address] PULMONARY DISEASE 10/21/19 documented as of this encounter
--- OUTSIDE RECORDS SUMMARY | 2024-03-02 03:59 | XMS_ITS | Encounter Summary ---
Author Organization [facility] Address [address] [place] [address]. [place], [place] [address] [place] [address] Care Team Providers Care Core Dipper Name Role Phone Clara Stanley Primary Care Provider [phone] Dominick Mccloud MD Unavailable [phone] Alexis Lopez MD Unavailable [phone] Encounter Details Date Type Department Care Team [...] AM [facility] Hospital Encounter [facility] [place] [address] Antwan Stone DPM [address], [address] [place] [address] 03/28/2024 7:30 AM CARE TRANSITIONS MANAGER Anesthesia Event [place] [address] Shanelle Avila, SURVEYOR GEOPHYSICAL PROSPECTING 1 [place] [address] 03/28/2024 7:30 AM CARE TRANSITIONS MANAGER - 03/28/2024 8:48 AM CARE TRANSITIONS MANAGER Surgery [place] [address] Antwan Stone, DPM [address], [place] [address] REMOVAL OF HARDWARE LEFT FOOT 04/05/2024 8:30 AM CARE TRANSITIONS MANAGER Office Visit Darren Chaudhari-O'F allon THREE [facility], [facility] [address] [place] [address] Dominick Mccloud MD Three [facility]. [facility] [address] [place] [address] Scheduled Procedures Name Priority Associated Diagnoses Date/Ti me REMOVAL PLATE SCREW OR PIN SCHED BY FAX 02/08/24 K[facility] PHONE ASSESS 03/28/2024 7:30 AM CARE TRANSITIONS MANAGER documented as of this encounter Visit Diagnoses Not on filedocumented in this encounter Additional Health Concerns Assessment Noted Time PHQ-9 Depression Total Score: 0 10/26/19 22 11:07 AM CDT documented as of this encounter Care Teams Core Dipper Relationship Specialty Start Date End Date Clara Stanley APNP [address] [place] [address] PCP - General NURSE PRACTITIONER 06/01/18 Dominick Mccloud MD [facility]. [facility] [address] [place] [address] [place] Acidizer Helper CARDIOVASCULAR DISEASE 03/28/19 Alexis Lopez MD [address] [facility] [facility] [place] [address] PULMONARY DISEASE 10/21/19 documented as of this encounter
--- OUTSIDE RECORDS SUMMARY | 2024-03-02 03:59 | XMS_ITS | Encounter Summary ---
Author Organization [facility] Address [address] [place] [address]. [place], [place] [address] [place] [address] Care Team Providers Care Business Continuity Consultant Name Role Phone Clara Stanley Primary Care Provider Dominick Mccloud MD Unavailable [phone] Alexis Lopez MD Unavailable [phone] Kip Del Rio MD Unavailable [phone] Encounter Details Date Type Department Care Team (Late st Contact Info) Description 12/30/2022 MyChart Message Enc [facility] Family & Internal Medicine - [place] [address] [place] [address] Clara Stanley APNP [address] [place] [address] [place] Social History Tobacco Use [...] do that? When I go on my [employer] yogesh it says itis an approved medication documented in this encounter Plan of Treatment Upcoming Encounters Date Type Department Care Team (Late st Contact Info) Description 03/28/2024 7:30 AM ORACLE DATABASE ADMINISTRATOR Hospital Encounter [facility] [place] [address] Antwan Stone DPM [address] [place] [address] 03/28/2024 7:30 AM ORACLE DATABASE ADMINISTRATOR Anesthesia [place] [address] Shanelle Avila, SPORTS NUTRITIONIST 1 [place] [address] 03/28/2024 7:30 AM ORACLE DATABASE ADMINISTRATOR - 03/28/2024 8:48 AM ORACLE DATABASE ADMINISTRATOR Surgery [place] [address] Antwan Stone DPM [address] [place] [address] REMOVAL OF HARDWARE LEFT FOOT 04/05/2024 8:30 AM ORACLE DATABASE ADMINISTRATOR Office Visit [facility] THREE [facility], [facility] [address] [place] [address] Dominick Mccloud MD [facility]. [facility] [address] [place], [place] [address] Scheduled Procedures Name Priority Associated Diagnoses Date/Ti me REMOVAL PLATE SCREW OR PIN SCHED BY FAX 02/08/24 K[facility] PHONE ASSESS 03/28/2024 7:30 AM ORACLE DATABASE ADMINISTRATOR documented as of this encounter Visit Diagnoses Not on filedocumented in this encounter Additional Health Concerns Assessment Noted Time PHQ-9 Depression Total Score: 0 10/26/19 22 11:07 AM CDT documented as of this encounter Care Teams Business Continuity Consultant Relationship Specialty Start Date End Date Clara Stanley APNP [address] [place] [address] PCP - General NURSE PRACTITIONER 06/01/18 Dominick Mccloud MD [facility]. [facility] [address] [place], [place] [address] [place] [employer] Station Operator Chief CARDIOVASCULAR DISEASE 03/28/19 Alexis Lopez MD 4600 [facility] [address] [address] PULMONARY DISEASE 10/21/19 Kip Del Rio MD [address] [facility] [address] [place] [address] MEDICAL ONCOLOGY 02/24/24 documented as of this encounter
--- OUTSIDE RECORDS SUMMARY | 2024-03-02 03:59 | XMS_ITS | Encounter Summary ---
Author Organization [facility] Address [address] [place] [address]. [place], [place] [address] [place] [address] Care Team Providers Care Superintendent Police Name Role Phone Clara Stanley Primary Care Provider [phone] Dominick Mccloud MD Unavailable [phone] Alexis Lopez MD Unavailable [phone] Reason for Visit * Reason Onset Date Comments Lab Results 04/15/2023 Encounter Details Date Type Department Care Team (Late st Contact Info) Description 04/15/2023 Telephone [facility] Family & Internal Medicine [facility] [address] [place] [address] Clara Stanley APNP [address] [place] [address] Lab Results Social History Tobacco [...] ZEB Nunn sent at 04/14/2023 8:28 PM PENSIONS RETIREMENT PLAN SPECIALIST ----- Labs stable IONS RETIREMENT PLAN SPECIALIST documented in this encounter Plan of Treatment Upcoming Encounters Date Type Department Care Team (Late st Contact Info) Description 03/28/2024 7:30 AM PENSIONS RETIREMENT PLAN SPECIALIST Hospital Encounter [facility] [place] [place] [address] Antwan Stone, DIEGO [address] [place], [place] [address] 03/28/2024 7:30 AM PENSIONS RETIREMENT PLAN SPECIALIST Anesthesia Event [place] [address] Shanelle Avila, COCOA MILL OPERATOR 1 [place] [address] 03/28/2024 7:30 AM PENSIONS RETIREMENT PLAN SPECIALIST - 03/28/2024 8:48 AM PENSIONS RETIREMENT PLAN SPECIALIST Surgery [place] [address] Antwan Stone DPM [address] [place], [place] [address] REMOVAL OF HARDWARE LEFT FOOT 04/05/2024 8:30 AM PENSIONS RETIREMENT PLAN SPECIALIST Office Visit Darren Chaudhari-O'F allon THREE [facility], [facility] [address] [place] [address] Dominick Mccloud MD Three [facility]. [facility] [address] [place] [address] Scheduled Procedures Name Priority Associated Diagnoses Date/Ti me REMOVAL PLATE SCREW OR PIN SCHED BY FAX 02/08/24 K[facility] PHONE ASSESS 03/28/2024 7:30 AM PENSIONS RETIREMENT PLAN SPECIALIST documented as of this encounter Visit Diagnoses Not on filedocumented in this encounter Additional Health Concerns Assessment Noted Time PHQ-9 Depression Total Score: 0 10/26/19 22 11:07 AM CDT documented as of this encounter Care Teams Superintendent Police Relationship Specialty Start Date End Date Clara Stanley APNP [address] [place] [address] PCP - General NURSE PRACTITIONER 06/01/18 Dominick Mccloud MD [facility] [address] [place] [address] [place] Mail Agent CARDIOVASCULAR DISEASE 03/28/19 Alexis Lopez MD 4600 [facility] 200 [place] [address] PULMONARY DISEASE 10/21/19 documented as of this encounter
--- OUTSIDE RECORDS SUMMARY | 2024-03-02 03:59 | XMS_ITS | Encounter Summary ---
Author Organization [facility] Address [address] [place] [address]. [place], [place] [address] [place] [address] Care Team Providers Care Facilities Maintenance Supervisor Name Role Phone Clara Stanley Primary Care Provider [phone] Dominick Mccloud MD Unavailable [phone] Alexis Lopez MD Unavailable [phone] Encounter Details Date Type Department Care Team (Late st Contact Info) Description 10/16/2022 OY LX Therapies Message Enc [facility] llon THREE [facility], [facility] [address] [place] [address] Dominick Mccloud MD Three [facility]. [facility] [address] [place], [place] [address] Justin Shad Cholesterol Meds Social History Tobacco [...] st Contact Info) Description 03/28/2024 7:30 AM BEEF CATTLE FARM MANAGER Hospital Encounter [facility] [place] [address] Antwan Stone DPM [address], [place] [address] 03/28/2024 7:30 AM BEEF CATTLE FARM MANAGER Anesthesia Event [facility] [place] [address] Shanelle Avila, STEELSCOPE OPERATOR 1 [place] [address] 03/28/2024 7:30 AM BEEF CATTLE FARM MANAGER - 03/28/2024 8:48 AM BEEF CATTLE FARM MANAGER Surgery [facility] [place] [address] Antwan Stone, DPM [address], [place] [address] REMOVAL OF HARDWARE LEFT FOOT 04/05/2024 8:30 AM BEEF CATTLE FARM MANAGER Office Visit [facility] THREE [facility], [facility] [address] [place] [address] Dominick Mccloud MD Three [facility]. [facility] [address] [place] [address] Scheduled Procedures Name Priority Associated Diagnoses Date/Ti me REMOVAL PLATE SCREW OR PIN SCHED BY FAX 02/08/24 K[facility] PHONE ASSESS 03/28/2024 7:30 AM BEEF CATTLE FARM MANAGER documented as of this encounter Visit Diagnoses Diagnosis Mixed hyperlipidemia Painful orthopaedic hardware (CMS/HCC)- Primary documented in this encounter Additional Health Concerns Assessment Noted Time PHQ-9 Depression Total Score: 0 10/26/19 22 11:07 AM CDT documented as of this encounter Care Teams Facilities Maintenance Supervisor Relationship Specialty Start Date End Date Clara Stanley APNP [address] [place] [address] PCP - General NURSE PRACTITIONER 06/01/18 Dominick Mccloud MD Three [facility]. [facility] [address] [place] [address] [place] Hoop Coiler CARDIOVASCULAR DISEASE 03/28/19 Alexis Lopez MD 46[address] [facility] [address] [address] PULMONARY DISEASE 10/21/19 documented as of this encounter
--- OUTSIDE RECORDS SUMMARY | 2024-03-02 03:59 | XMS_ITS | Encounter Summary ---
Author Organization [facility] Address [address] [place] [address]. [place], [place] [address] [place] [address] Care Team Providers Care Shearing Machine Tender Name Role Phone Clara Stanley Primary Care Provider [phone] Dominick Mccloud MD Unavailable [phone] Alexis Lopez MD Unavailable [phone] Encounter Details Date Type Department Care Team [...] [facility] Hospital Encounter [facility] One Day Services [place], [place] [address] Antwan Stone DPM [address], [place] [address] 03/28/2024 7:30 AM TRAVEL JOURNALIST Anesthesia Event [facility] [place] [address] Shanelle Avila, FOLDER MACHINE ADJUSTER [address] [place] [address] 03/28/2024 7:30 AM TRAVEL JOURNALIST - 03/28/2024 8:48 AM TRAVEL JOURNALIST Surgery [facility] [place] [address] Antwan Stone, DPM [address], [place] [address] REMOVAL OF HARDWARE LEFT FOOT 04/05/2024 8:30 AM TRAVEL JOURNALIST Office Visit [facility]'F all[facility] THREE [facility], [facility] [address] [place], [place] [address] Dominick Mccloud MD Three [facility]. [facility] [address] [place], [place] [address] Scheduled Procedures Name Priority Associated Diagnoses Date/Ti me REMOVAL PLATE SCREW OR PIN SCHED BY FAX 02/08/24 [facility] PHONE ASSESS 03/28/2024 7:30 AM TRAVEL JOURNALIST documented as of this encounter Visit Diagnoses Not on filedocumented in this encounter Additional Health Concerns Assessment Noted Time PHQ-9 Depression Total Score: 0 10/26/19 22 11:07 AM CDT documented as of this encounter Care Teams Shearing Machine Tender Relationship Specialty Start Date End Date Clara Stanley APNP [facility]1 [place] [address] PCP - General NURSE PRACTITIONER 06/01/18 Dominick Mccloud MD [facility]. [facility] [address] [place] [address] [place] Outsole Scheduler CARDIOVASCULAR DISEASE 03/28/19 Alexis Lopez MD [address] [facility] [address] [place] [address] PULMONARY DISEASE 10/21/19 documented as of this encounter
--- OUTSIDE RECORDS SUMMARY | 2024-03-02 03:59 | XMS_ITS | Encounter Summary ---
Author Organization [facility] Address [address] [place] [address]. [place], [place] [address] [place] [address] Care Team Providers Care Wire Mill Operator Name Role Phone Clara Stanley Primary Care Provider [phone] Dominick Mccloud MD Unavailable [phone] Alexis Lopez MD Unavailable [phone] Encounter Details Date Type Department Care Team [...] 7:30 AM [facility] Hospital Encounter [facility] [place] [address] Antwan Stone DPM [address], [place] [address] 03/28/2024 7:30 AM SHRIMP TRAWLER CAPTAIN Anesthesia [place] [address] Shanelle Avila, MANGANESE HEATER 1 [place] [address] 03/28/2024 7:30 AM SHRIMP TRAWLER CAPTAIN - 03/28/2024 8:48 AM SHRIMP TRAWLER CAPTAIN [place] [address] Antwan Stone, DPM [address], [address] [place] [address] REMOVAL OF HARDWARE LEFT FOOT 04/05/2024 8:30 AM SHRIMP TRAWLER CAPTAIN Office Visit Darren Chaudhari-O'F allon THREE [facility], [facility] [address] [place] [address] Dominick Mccloud MD Three [facility]. [facility] [address] [place] [address] Scheduled Procedures Name Priority Associated Diagnoses Date/Ti me REMOVAL PLATE SCREW OR PIN SCHED BY FAX 02/08/24 [facility] PHONE ASSESS 03/28/2024 7:30 AM SHRIMP TRAWLER CAPTAIN documented as of this encounter Visit Diagnoses Not on filedocumented in this encounter Additional Health Concerns Assessment Noted Time PHQ-9 Depression Total Score: 0 10/26/19 22 11:07 AM CDT documented as of this encounter Care Teams Wire Mill Operator Relationship Specialty Start Date End Date Clara Stanley APNP [address] [place] [address] PCP - General NURSE PRACTITIONER 06/01/18 Dominick Mccloud MD [facility]. [facility] [address] [place] [address] [place] Wireless Architect CARDIOVASCULAR DISEASE 03/28/19 Alexis Lopez MD [address] [facility] [address] [place] [address] PULMONARY DISEASE 10/21/19 documented as of this encounter
--- OUTSIDE RECORDS SUMMARY | 2024-03-02 03:59 | XMS_ITS | Encounter Summary ---
Author Organization [facility] Address [address] [place] [address]. [place], [place] [address] [place] [address] Care Team Providers Care Account Management Assistant Name Role Phone Clara Stanley Primary Care Provider [phone] Dominick Mccloud MD Unavailable [phone] Alexis Lopez MD Unavailable [phone] Encounter Details Date Type Department Care Team [...] st Contact Info) Description 03/28/2024 7:30 AM [facility] Hospital Encounter [facility] One Day Services [place], [place] [id number] Antwan Stone DPM [address], [place] [address] 03/28/2024 7:30 AM ACCOUNT SERVICES REPRESENTATIVE Anesthesia Event [facility] [place] [address] Shanelle Avila, ATTENDING RADIOLOGIST [address] [place] [address] 03/28/2024 7:30 AM ACCOUNT SERVICES REPRESENTATIVE - 03/28/2024 8:48 AM ACCOUNT SERVICES REPRESENTATIVE Surgery [facility] [place] [address] Antwan Stone, DPM [address], [place] [address] REMOVAL OF HARDWARE LEFT FOOT 04/05/2024 8:30 AM ACCOUNT SERVICES REPRESENTATIVE Office Visit [facility] THREE [facility], [facility] [address] [place], [place] [address] Dominick Mccloud MD Three [facility]. [facility] [address] [place], [place] [address] Scheduled Procedures Name Priority Associated Diagnoses Date/Ti me REMOVAL PLATE SCREW OR PIN SCHED BY FAX 02/08/24 [facility] PHONE ASSESS 03/28/2024 7:30 AM ACCOUNT SERVICES REPRESENTATIVE documented as of this encounter Visit Diagnoses Not on filedocumented in this encounter Additional Health Concerns Assessment Noted Time PHQ-9 Depression Total Score: 0 10/26/19 22 11:07 AM CDT documented as of this encounter Care Teams Account Management Assistant Relationship Specialty Start Date End Date Clara Stanley APNP [facility] [place] [address] PCP - General NURSE PRACTITIONER 06/01/18 Dominick Mccloud MD [facility]. [facility] [address] [place] [address] [place] Driver Supervisor CARDIOVASCULAR DISEASE 03/28/19 Alexis Lopez MD [address] [facility] [facility] [address] [place] [address] PULMONARY DISEASE 10/21/19 documented as of this encounter
--- OUTSIDE RECORDS SUMMARY | 2024-03-02 03:59 | XMS_ITS | Encounter Summary ---
Author Organization [facility] Address [address] [place] [address]. [place], [place] [address] [place] [address] Care Team Providers Care Date Pitter Name Role Phone Clara Stanley Primary Care Provider [phone] Dominick Mccloud MD Unavailable [phone] Alexis Lopez MD Unavailable [phone] Encounter Details Date Type Department Care Team [...] 7:30 AM [facility] Hospital Encounter [facility] [place] [address] Antwan Stone DPM [address], [place] [address] 03/28/2024 7:30 AM JEWELRY CASTING MODEL MAKER APPRENTICE Anesthesia [place] [address] Shanelle Avila, GRAPHIC MANAGER [address] [place] [address] 03/28/2024 7:30 AM JEWELRY CASTING MODEL MAKER APPRENTICE - 03/28/2024 8:48 AM JEWELRY CASTING MODEL MAKER APPRENTICE [place] [address] Antwan Stone, DPM [address], [address] [place] [address] REMOVAL OF HARDWARE LEFT FOOT 04/05/2024 8:30 AM JEWELRY CASTING MODEL MAKER APPRENTICE Office Visit [facility]ren Chaudhari-O'F allon THREE [facility], [facility] [address] [place] [address] Dominick Mccloud MD Three [facility]. [facility] [address] [place] [address] Scheduled Procedures Name Priority Associated Diagnoses Date/Ti me REMOVAL PLATE SCREW OR PIN SCHED BY FAX 02/08/24 [facility] PHONE ASSESS 03/28/2024 7:30 AM JEWELRY CASTING MODEL MAKER APPRENTICE documented as of this encounter Visit Diagnoses Not on filedocumented in this encounter Additional Health Concerns Assessment Noted Time PHQ-9 Depression Total Score: 0 10/26/19 22 11:07 AM CDT documented as of this encounter Care Teams Date Pitter Relationship Specialty Start Date End Date Clara Stanley APNP [address] [place] [address] PCP - General NURSE PRACTITIONER 06/01/18 Dominick Mccloud MD [facility]. [facility] [address] [place] [address] [place] Fisher Pot CARDIOVASCULAR DISEASE 03/28/19 Alexis Lopez MD [address] [facility] [address] [place] [address] PULMONARY DISEASE 10/21/19 documented as of this encounter
--- OUTSIDE RECORDS SUMMARY | 2024-03-02 03:59 | XMS_ITS | Encounter Summary ---
Author Organization [facility] Address [address] [place] [address]. [place], [place] [address] [place] [address] Care Team Providers Care Furniture Decals Inspector Name Role Phone Clara Stanley Primary Care Provider [phone] Dominick Mccloud MD Unavailable [phone] Alexis Lopez MD Unavailable [phone] Encounter Details Date Type Department Care Team [...] Description 03/28/2024 7:30 AM [facility] Encounter [facility] [place] [address] Antwan Stone DPM [address], [address] [place] [address] 03/28/2024 7:30 AM VALUE ANALYST Anesthesia Event [facility] [place] [address] Shanelle Avila, BUTTON FACING 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 1 [place] [address] 03/28/2024 7:30 AM VALUE ANALYST - 03/28/2024 8:48 AM VALUE ANALYST Surgery [facility] [place] [address] Antwan Stone, DPM [address], [address] [place] [address] REMOVAL OF HARDWARE LEFT FOOT 04/05/2024 8:30 AM VALUE ANALYST Office Visit Darren Chaudhari-O'F allon THREE [facility], [facility] [address] [place] [address] Dominick cMcloud MD Three [facility]. [facility] [address] [place] [address] Scheduled Procedures Name Priority Associated Diagnoses Date/Ti me REMOVAL PLATE SCREW OR PIN SCHED BY FAX 02/08/24 [facility] PHONE ASSESS 03/28/2024 7:30 AM VALUE ANALYST documented as of this encounter Visit Diagnoses Not on filedocumented in this encounter Additional Health Concerns Assessment Noted Time PHQ-9 Depression Total Score: 0 10/26/19 22 11:07 AM CDT documented as of this encounter Care Teams Furniture Decals Inspector Relationship Specialty Start Date End Date Clara Stanley APNP [address] [place] [address] PCP - General NURSE PRACTITIONER 06/01/18 Dominick Mccloud MD [facility]. [facility] [address] [place] [address] [place] Prescription Clerk CARDIOVASCULAR DISEASE 03/28/19 Alexis Lopez MD [address] [facility] [address] [place] [address] PULMONARY DISEASE 10/21/19 documented as of this encounter
--- OUTSIDE RECORDS SUMMARY | 2024-03-02 03:59 | XMS_ITS | Encounter Summary ---
Author Organization [facility] Address [address] [place] [address]. [place], [place] [address] [place] [address] Care Team Providers Care Cook Helper Name Role Phone Clara Stanley Primary Care Provider [phone] Dominick Mccloud MD Unavailable [phone] Alexis Lopez MD Unavailable [phone] Reason for Visit * Reason Comments Hypertension Lipids 6 month follow up Encounter Details Date Type Department Care Team (Late st Contact Info) Description 03/31/2023 8:45 AM CRM DEVELOPER Office Visit [place] [facility] jacobson THREE [facility], [facility] [address] [place], [place] [id number] Dominick Mccloud MD Three [facility]. [facility] [address] [place], [place] [id number] Hypertension; Lipids (6 month follow up) Social [...] Comments Blood Pressure 138/82 03/31/2023 8:49 AM CRM DEVELOPER Pulse 83 03/31/2023 8:49 AM CRM DEVELOPER Temperature - - Respiratory Rate - - Oxygen Saturation 97% 03/31/2023 8:49 AM CRM DEVELOPER Inhaled Oxygen Concentration - - Weight 166 kg (366 lb) 03/31/2023 8:49 AM CRM DEVELOPER Height 190.5 cm (6' 3 ) 03/31/2023 8:49 AM CRM DEVELOPER Body Mass Index 45.75 03/31/2023 8:49 AM CRM DEVELOPER documented in this encounter Progress Notes * [...] block. 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 provider found PCP: ZEB Nunn DEVELOPER documented in this encounter Plan of Treatment Upcoming Encounters Date Type Department Care Team (Late st Contact Info) Description 03/28/2024 7:30 AM CRM DEVELOPER Hospital Encounter [facility] [place] [address] Antwan Stone DPM [address] [place] [address] 03/28/2024 7:30 AM CRM DEVELOPER Anesthesia Event [place] [address] Shanelle Avila, SWITCHMAN [address] [place] [address] 03/28/2024 7:30 AM CRM DEVELOPER - 03/28/2024 8:48 AM CRM DEVELOPER Surgery [facility] [place] [address] Antwan Stone, DPM [address], [place] [address] REMOVAL OF HARDWARE LEFT FOOT 04/05/2024 8:30 AM CRM DEVELOPER Office Visit Darren Chaudhari-O'F allon THREE [facility] [address] [place] [address] Dominick Mccloud MD Three [facility]. [facility] [address] [place] [address] Scheduled Orders Name Type Priority Associated Diagnoses Orde r Schedule BASIC METABOLIC PANEL Lab Routine Hypertension, benign Expected: 03/31/2023, Expires: 03/31/2024 MAGNESIUM Lab Routine Hypertension, benign Expected: 03/31/2023, Expires: 03/31/2024 Scheduled Procedures Name Priority Associated Diagnoses Date/Ti me REMOVAL PLATE SCREW OR PIN SCHED BY FAX 02/08/24 [facility] PHONE ASSESS 03/28/2024 7:30 AM CRM DEVELOPER documented as of this encounter Visit Diagnoses Diagnosis Mixed hyperlipidemia- Primary Hypertension, benign Essential hypertension, benign Painful orthopaedic hardware (CMS/HCC)- Primary documented in this encounter Additional Health Concerns Assessment Noted Time PHQ-9 Depression Total Score: 0 10/26/19 22 11:07 AM CDT documented as of this encounter Care Teams Cook Helper Relationship Specialty Start Date End Date Clara Stanley APNP [facility] [place] [address] PCP - General NURSE PRACTITIONER 06/01/18 Dominick Mccloud MD [facility] [address] [place] [address] [place] Engineering Specialist Technician CARDIOVASCULAR DISEASE 03/28/19 Alexis Lopez MD [address] [facility] [address] [address] PULMONARY DISEASE 10/21/19 documented as of this encounter
--- OUTSIDE RECORDS SUMMARY | 2024-03-02 03:59 | XMS_ITS | Encounter Summary ---
Author Organization [facility] Address [address] [place] [address]. [place], [place] [address] [place] [address] Care Team Providers Care Account Development Manager Name Role Phone Clara Stanley Primary Care Provider [phone] Dominick Mccloud MD Unavailable [phone] Alexis Lopez MD Unavailable [phone] Encounter Details Date Type Department Care Team [...] Contact Info) Description 03/28/2024 7:30 AM [facility] Hospital Encounter [facility] [place] [address] Antwan Stone DPM [address], [address] [place] [address] 03/28/2024 7:30 AM PUBLIC HEALTH DOCTOR Anesthesia Event [facility] [address] Shanelle Avila, MEDICAL LABORATORY ASSISTANT [address] [place] [address] 03/28/2024 7:30 AM PUBLIC HEALTH DOCTOR - 03/28/2024 8:48 AM PUBLIC HEALTH DOCTOR Surgery [facility] [address] Antwan Stone, DPM [address], [address] [place] [address] REMOVAL OF HARDWARE LEFT FOOT 04/05/2024 8:30 AM PUBLIC HEALTH DOCTOR Office Visit Darren Chaudhari-O'F allon THREE [facility], [facility] [address] [place] [address] Dominick Mccloud MD Three [facility]. [facility] [address] [place] [address] Scheduled Procedures Name Priority Associated Diagnoses Date/Ti me REMOVAL PLATE SCREW OR PIN SCHED BY FAX 02/08/24 [facility] PHONE ASSESS 03/28/2024 7:30 AM PUBLIC HEALTH DOCTOR documented as of this encounter Visit Diagnoses Not on filedocumented in this encounter Additional Health Concerns Assessment Noted Time PHQ-9 Depression Total Score: 0 10/26/19 22 11:07 AM CDT documented as of this encounter Care Teams Account Development Manager Relationship Specialty Start Date End Date Clara Stanley APNP [address] [place] [address] PCP - General NURSE PRACTITIONER 06/01/18 Dominick Mccloud MD [facility]. [facility] [address] [place] [address] [place] Neurology Specialist CARDIOVASCULAR DISEASE 03/28/19 Alexis Lopez MD [address] [facility] [address] [place] [address] PULMONARY DISEASE 10/21/19 documented as of this encounter
--- OUTSIDE RECORDS SUMMARY | 2024-03-02 03:59 | XMS_ITS | Encounter Summary ---
Author Organization [facility] Address [address] [place] [address]. [place], [place] [address] [place] [address] Care Team Providers Care Shipping And Receiving Weigher Name Role Phone Clara Stanley Primary Care Provider [phone] Dominick Mccloud MD Unavailable [phone] Alexis Lopez MD Unavailable [phone] Reason for Visit * Reason Onset Date Comments Prior Authorization 09/10/2023 Zepbound 2.5 mg Encounter Details Date Type Department Care Team (Late st Contact Info) Description 09/10/2023 Telephone [facility] - [place] [address] [place] [address] Clara Stanley APNP [address] [place] [address] Prior Authorization (Zepbound 2.5mg ) [...] Contact Info) Description 03/28/2024 7:30 AM TANK TRUCK MECHANIC Hospital Encounter [facility] [address] Antwan Stone DPM [address], [address] [place], [place] [address] 03/28/2024 7:30 AM TANK TRUCK MECHANIC Anesthesia Event [facility] [place], [place] [address] Shanelle Avila, ENGINE BUILDER 1 [place] [address] 03/28/2024 7:30 AM TANK TRUCK MECHANIC - 03/28/2024 8:48 AM TANK TRUCK MECHANIC Surgery [facility] [place] [address] Antwan Stone, DPÁngel [address], [place] [address] REMOVAL OF HARDWARE LEFT FOOT 04/05/2024 8:30 AM TANK TRUCK MECHANIC Office Visit Darren Hernandez'Marbella fleming THREE [facility] [address] [place] [address] Dominick Mccloud MD Three [facility]. [facility] [address] [place], [place] [address] Scheduled Procedures Name Priority Associated Diagnoses Date/Ti me REMOVAL PLATE SCREW OR PIN SCHED BY FAX 02/08/24 [facility] PHONE ASSESS 03/28/2024 7:30 AM TANK TRUCK MECHANIC documented as of this encounter Visit Diagnoses Diagnosis Class 3 severe obesity due to excess calories with serious comorbidity and body mass index (BMI) of 40.0 to 44.9 in adult ([facility] HHS/HCC)- Primary BMI 40.0-44.9, adult ([facility] HHS/[facility]) Body Mass Index 40.0-44.9, adult Painful orthopaedic hardware ([facility])- Primary documented in this encounter Additional Health Concerns Assessment Noted Time PHQ-9 Depression Total Score: 0 10/26/19 22 11:07 AM CDT documented as of this encounter Care Teams Shipping And Receiving Weigher Relationship Specialty Start Date End Date Clara Stanley APNP [address] [place] [address] PCP - General NURSE PRACTITIONER 06/01/18 Dominick Mccloud MD [facility]. [facility] [address] [place] [address] [place] Integration Director CARDIOVASCULAR DISEASE 03/28/19 Alexis Lopez MD [address] [facility] [address] [place] [address] PULMONARY DISEASE 10/21/19 documented as of this encounter
--- OUTSIDE RECORDS SUMMARY | 2024-03-02 03:59 | XMS_ITS | Clinical Summary ---
Author Organization [facility] Address [address] [place] [address]. [place] [address] [place] [address] Care Team Providers Care Whiting Machine Operator Name Role Phone Clara Stanley Primary Care Provider [phone] Dominick Mccloud MD Unavailable [phone] Alexis Lopez MD Unavailable [phone] Kip Del Rio MD Unavailable [phone] Allergies No known active allergies Medications cetirizine (ZYRTEC) 10 MG tablet Take 1 tablet (10 mg total) by mouth daily. 015 Active Multiple Vitamins-Minerals (MULTIVITAMIN ADULT OR) Take 1 tablet by mouth daily. Active vitamin C 1000 MG tablet Take 1 tablet (1,000 mg total) by mouth daily. Active vitamin D3, cholecalciferol, 1.25 MG (70069 UT) capsule Take 1 capsule (50,000 Units [...] Date Body mass index (BMI) 45.0-49.9, adult ([facility]) 03/28/2020 Mild intermittent asthma without complication (H HS/HCC) 12/02/2019 Overview (03/28/2020): Last Assessment & Plan: The patient has a cough variant of asthma. He will continue with the Pepcid, Flonase and Symbicort. Last Assessment & Plan: The patient has a cough variant of asthma. He will continue with the Pepcid, Flonase and Symbicort. 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 Diet: ADAT Pain control: Epidural, D/c'd RESEARCH ASSOCIATE POLICY. POPM IS Bowel reg DVT prophylaxis CT to WS D/c'd gonzalez, voiding D/c'd A-line, d/c'd OU status Bronchoscopy today High grade neuroendocrine carcinoma ([facility]/HCC [facility] /[facility]) 05/10/2019 Lung mass 04/27/2019 Overview (07/11/2019): Last Assessment & Plan: I will order a PET scan and full PFTs for the patient he will follow-up here in 1 week. Added automatically from request for surgery [id number] Solitary pulmonary nodule 04/27/2019 Overview (03/28/2020): Last Assessment & Plan: I will order a PET scan and full PFTs for the patient he will follow-up here in 1 week. Added automatically from request for surgery [id number] Added automatically from request for surgery [id number] Last Assessment & Plan: I will order a PET scan and full PFTs for the patient he will follow-up here in 1 week. IIH (idiopathic intracranial hypertension) 04/01 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 03/15/2019 Hypertension, benign 01/15/2017 Hyperlipidemia 02/21/2015 Morbid obesity ([facility]) 02/21/2015 Essential hypertension 02/21/2015 Depression with anxiety 12/12/2014 Insomnia 12/12/2014 Dry skin dermatitis 01/05/2014 Obesity 01/05/2014 Encounter for preventive health examination 03/2011 Overview (06/07/2018): appendectomytonsillectomy Resolved Problems Problem Noted Date Diagnosed Date Resolved Date Varicose veins of right lowe r extremity with pain 10/12/2019 10/31/2019 Overview (10/12/2019): Added automatically from request for surgery [id number] Acute non-recurrent frontal sinusitis 03/22/2019 04/04/2019 Abdominal [...] 147.4 kg (325 lb) 02/22/2024 3:33 PM RESOURCE CENTER TEACHER Height 190.5 cm (6' 3 ) 02/22/2024 3:33 PM RESOURCE CENTER TEACHER Body Mass Index 40.62 02/22/2024 3:33 PM RESOURCE CENTER TEACHER Plan of Treatment Upcoming Encounters Date Type Department Care Team (Late st Contact Info) Description 03/28/2024 7:30 AM RESOURCE CENTER TEACHER Hospital Encounter [facility] [place] [address] Antwan Stone, DIEGO [address], [place] [address] 03/28/2024 7:30 AM RESOURCE CENTER TEACHER Anesthesia [place] [address] Shanelle Avila CNP 1 [place] [address] 03/28/2024 7:30 AM RESOURCE CENTER TEACHER - 03/28/2024 8:48 AM RESOURCE CENTER TEACHER Surgery [place] [address] Antwan Stone, DIEGO [address], [place] [address] REMOVAL OF HARDWARE LEFT FOOT 04/05/2024 8:30 AM RESOURCE CENTER TEACHER Office Visit Darren Chaudhari-O'F allon THREE [facility], [facility] [address] [place] [address] Dominick Mccloud MD Three [facility]. [facility] [address] [place] [address] Scheduled Procedures Name Priority Associated Diagnoses Date/Ti me REMOVAL PLATE SCREW OR PIN SCHED BY FAX 02/08/24 [facility] PHONE ASSESS 03/28/2024 7:30 AM RESOURCE CENTER TEACHER Health Maintenance Due Date Last Done [...] this topic Medical Devices Implanted Type Area Beauty Parlor Cleaner Device Identifier Shelf Expiration Date Model / Serial / Lot 5th Metatarsal Plate Implanted:Qty: 1 on 01/28/2023 by Antwan Stone DPM at [facility] Plate Left: Foot [employer] [id number] / / 2.4 X 14mm Locking Screw Implanted:Qty: 1 on 01/28/2023 by Antwan Stone DPM at [facility] Screw Left: Foot [employer] [id number] / / 2.4 X 12mm Locking Screw Implanted:Qty: 3 on 01/28/2023 by Antwan Stone DPM at [facility] Screw Left: Foot [employer] [id number] / / 2.4 X 12 Non Locking Screw Implanted:Qty: 1 on 01/28/2023 by Antwan Stone DPM at [facility] Screw Left: Foot [employer] [id number] / / Augment Injectable Kit 1.5cc Implanted:Qty: 1 on 01/28/2023 by Antwan Stone DPM at [facility] Left: Foot 09/10/2024 [id number] / / [id number] Vitoss Bbtrauma Implanted:Qty: 1 on 01/28/2023 by Antwan Stone DPM at [facility] Left: Foot [employer] 11/11/2023 [id number] / / [id number] Description:5TH METATARSAL Procedures Procedure Name Priority Date/Time Associated Diagnosis Comments HEPATITIS C ANTIBODY W/RFX TO HCV RNA Routine 04/10/2023 10:14 AM RESOURCE CENTER TEACHER Need for hepatitis C screening test COLONOSCOPY Routine 03/21/2022 6:29 AM RESOURCE CENTER TEACHER from Last 3 Months or Most Recently Relevant to Health Maintenance Results * HEPATITIS C ANTIBODY W/RFX TO HCV RNA ([facility] ONLY) (04/10/2023 10:14 AM RESOURCE CENTER TEACHER) HEPATITIS C AB Non Reactive Non Reacti [facility] 1 INTERPRETATION Comment [facility] 1 Comment: Not infected with HCV unless early or acute infection is suspected (which may be delayed in an immunocompromised individual), or other evidence exists to indicate HCV infection. 04/10/2023 10:1 4 AM RESOURCE CENTER TEACHER 04/10/2023 Narrative [facility] - 04/11/2023 4:08 AM RESOURCE CENTER TEACHER Performed at: ??01 - [facility] [address], [place], [place] ??[id number] Leasing Professional: Xander Juárez PhD, Phone: ??[phone] us Clara [facility] Final Resul t [facility] [address] [place] [address] [facility] 1 * COLONOSCOPY (06/30/2018) us Documents Scanned SCANNING Final Result from Last 3 Months or Most Recently Relevant to Health Maintenance Insurance [employer] Care Teams Whiting Machine Operator Relationship Specialty Start Date End Date Clara Stanley APNP [address] [place] [address] PCP - General NURSE PRACTITIONER 06/01/18 Dominick Mccloud MD Three [facility] [address] [place] [address] [place] Stitcher Feeder CARDIOVASCULAR DISEASE 03/28/19 Alexis Lopez MD [address] [facility] [address] [place] [address] PULMONARY DISEASE 10/21/19 Kip Del Rio MD [address] [facility] [address] [place] [address] MEDICAL ONCOLOGY 02/24/24
--- OUTSIDE RECORDS SUMMARY | 2024-03-02 03:59 | XMS_ITS | Encounter Summary ---
Author Organization [facility] Address [address] [place] [address]. [place] [address] [place] [address] Care Team Providers Care Sand Digger Name Role Phone Clara Stanley Primary Care Provider [phone] Dominick Mccloud MD Unavailable [phone] Alexis Lopez MD Unavailable [phone] Kip Del Rio MD Unavailable [phone] Encounter Details Date Type Department Care Team (Late st Contact Info) Description 10/15/2022 Abstract [facility] [address] Millie Blanc MA Social History Tobacco Use [...] st Contact Info) Description 03/28/2024 7:30 AM ELECTRICAL/INSTRUMENT TECHNICIAN Hospital Encounter [facility] [place] [address] Antwan Stone, DPM [address], [place] [address] 03/28/2024 7:30 AM ELECTRICAL/INSTRUMENT TECHNICIAN Anesthesia [place] [address] Shanelle Avila, RAEANN [address] [place] [address] 03/28/2024 7:30 AM ELECTRICAL/INSTRUMENT TECHNICIAN - 03/28/2024 8:48 AM ELECTRICAL/INSTRUMENT TECHNICIAN Surgery [place] [address] Antwan Stone, TEJASM [address], [place] [address] REMOVAL OF HARDWARE LEFT FOOT 04/05/2024 8:30 AM ELECTRICAL/INSTRUMENT TECHNICIAN Office Visit Darren Chaudhari-O'F allon THREE [facility], [facility] [address] [place] [address] Dominick Mccloud MD Three [facility]. [facility] [address] [place] [address] Scheduled Procedures Name Priority Associated Diagnoses Date/Ti me REMOVAL PLATE SCREW OR PIN SCHED BY FAX 02/08/24 [facility] PHONE ASSESS 03/28/2024 7:30 AM ELECTRICAL/INSTRUMENT TECHNICIAN documented as of this encounter Procedures [...] documented as of this encounter Care Teams Sand Digger Relationship Specialty Start Date End Date Clara Stanley APNP [address] [place] [address] PCP - General NURSE PRACTITIONER 06/01/18 Dominick Mccloud MD [facility] [address] [place] [address] [place] Engraving Supervisor CARDIOVASCULAR DISEASE 03/28/19 Alexis Lopez MD [address] [address] PULMONARY DISEASE 10/21/19 Kip Del Rio MD [address] [facility] [address] [place] [address] MEDICAL ONCOLOGY 02/24/24 documented as of this encounter
--- OUTSIDE RECORDS SUMMARY | 2024-03-02 03:59 | XMS_ITS | Encounter Summary ---
Author Organization [facility] Address [address] [place] [address]. [place], [place] [address] [place] [address] Care Team Providers Care Production Reproduction Manager Name Role Phone Lizeth Clara CARRINGTON Primary Care Provider [phone] Dominick Mccloud MD Unavailable [phone] Alexis Lopez MD Unavailable [phone] Kip Del Rio MD Unavailable [phone] Encounter Details Date Type Department Care Team (Late st Contact Info) Description 04/12/2023 Guide Financial Message Enc [place] [facility]O'F[facility] kavon THREE [facility], [facility] [address] [place] [address] Dominick Mccloud MD Three [facility]. [facility] [address] [place] [address] Blood Test Results Social History [...] - 04/13/2023 10:15 AM CST Please advise. RIAL CHASER documented in this encounter Plan of Treatment Upcoming Encounters Date Type Department Care Team (Late st Contact Info) Description 03/28/2024 7:30 AM MATERIAL CHASER Hospital Encounter [facility] [place] [address] Antwan Stone DPM [address], [place] [address] 03/28/2024 7:30 AM MATERIAL CHASER Anesthesia [place] [address] Shanelle Avila, BUS ASSISTANT [address] [place] [address] 03/28/2024 7:30 AM MATERIAL CHASER - 03/28/2024 8:48 AM MATERIAL CHASER Surgery [place] [address] Antwan Stone DPM [address] [place], [place] [address] REMOVAL OF HARDWARE LEFT FOOT 04/05/2024 8:30 AM MATERIAL CHASER Office Visit Darren Chaudhari-O'F allon THREE [facility], [facility] [address] [place] [address] Dominick Mccloud MD Three [facility]. [facility] [address] [place] [address] Scheduled Procedures Name Priority Associated Diagnoses Date/Ti me REMOVAL PLATE SCREW OR PIN SCHED BY FAX 02/08/24 [facility] PHONE ASSESS 03/28/2024 7:30 AM MATERIAL CHASER documented as of this encounter Visit Diagnoses Not on filedocumented in this encounter Additional Health Concerns Assessment Noted Time PHQ-9 Depression Total Score: 0 10/26/19 22 11:07 AM CDT documented as of this encounter Care Teams Production Reproduction Manager Relationship Specialty Start Date End Date Clara Stanley APNP [address] [place] [address] PCP - General NURSE PRACTITIONER 06/01/18 Dominick Mccloud MD [facility] [address] [place] [address] [place] Program Director/Morning Show Host CARDIOVASCULAR DISEASE 03/28/19 Alexis Lopez MD [address] [facility] [address] [address] PULMONARY DISEASE 10/21/19 Kip Del Rio MD 49[address] [facility] [address] [place] [address] MEDICAL ONCOLOGY 02/24/24 documented as of this encounter
--- OUTSIDE RECORDS SUMMARY | 2024-03-02 03:59 | XMS_ITS | Encounter Summary ---
Author Organization [facility] Address [address] [place] [address]. [place], [place] [address] [place] [address] Care Team Providers Care Aircraft Designer Name Role Phone Clara Stanley Primary Care Provider [phone] Dominick Mccloud MD Unavailable [phone] Alexis Lopez MD Unavailable [phone] Reason for Visit * Auth/Cert (Routine) Specialty Diagnoses / Procedures Referred By Erik [email or web address] Referred To Contact Diagnoses FIFTH METATARSAL FRACTURE Procedures OPEN REDUCTION INTERNAL FIXATION FIFTH METATARSAL FRACTURE LEFT FOOT Antwan Stone DPM [address] [place] [address] Phone: tel: fax: Referral ID Status Reason Start Date Expiration Date Visits Re quested Visits Authorized [id number] 1 1 Encounter Details Date Type Department Care Team (Latest Contact Info) Description 01/28/2023 5:43 AM [facility] - 01/28/2023 10:10 AM [facility] Hospital Encounter [facility] [place] [address] Antwan Stone DPM [address] [place], [place] [address] Discharge Disposition: Home or Self Care (Routine [...] Comments Blood Pressure 140/90 01/28/2023 10:00 AM BOX CAR CHECKER Pulse 79 01/28/2023 10:00 AM BOX CAR CHECKER Temperature 36.3 ??C (97.3 ??F) 01/28/2023 10:[address] Respiratory Rate 16 01/28/2023 10:00 AM BOX CAR CHECKER Oxygen Saturation 95% 01/28/2023 10:00 AM BOX CAR CHECKER Inhaled Oxygen Concentration - - Weight 162.7 kg (358 lb 11 oz) 01/28/2023 6:24 A M BOX CAR CHECKER Height - - Body Mass Index 44.83 12/23/2022 11:15 AM CDT documented in this encounter Discharge Instructions * Discharge Instructions* Florence Estrada RN - 01/28/2023 9:12 AM BOX CAR CHECKER Because you had anesthesia NO DRIVING FOR [...] questions or concerns, please call your surgeon. CAR CHECKER * Attachments The following attachments cannot be sent through Care Everywhere. * Open Reduction and Internal Fixation Surgery Discharge Instructions (Cameroonian) * General Anesthesia Discharge Instructions (Cameroonian) documented in this encounter Medications at Time [...] mouth daily. vitamin D3, cholecalciferol, 1.25 MG (95895 UT) capsule Take 1 capsule (50,000 Units [...] total) by mouth daily. 30 tablet 2 Ixfeusuecdn-Hwxwfmhtl-Jkifrj (TRELEGY ELLIPTA) 100-62.5-25 MCG/ACT AEROSOL POWDER, BREATH [...] mouth daily. vitamin D3, cholecalciferol, 1.25 MG (79946 UT) capsule Take 1 capsule (50,000 Units [...] with surgical treatment today. ANTWAN STONE DPM CAR CHECKER documented in this encounter Nursing Notes * Cong Marks RN - 01/28/2023 7:55 AM CST 0755 - Updated Faith, on procedure start. 0818 -Updated on procedure finishing. CAR CHECKER documented in this encounter OR Notes * [...] was filled with [facility] and [place] V toss bone grafting. Next following standard [...] any problemsor concerns arise. ANTWAN STONE DPM CAR CHECKER * OR PreOp - Shanelle Avila CNP - 01/22/2023 9:20 AM CST Chart reviewed. Per phone interview, patient denies any SOB/CP with 2 FOS or recent changes in activity tolerance in past 6 months. Patient sees ethnoarchaeologist Dr. Mccloud and previous cardiac testing copied. [...] axis deviation, partial right bundle branch block. CAR CHECKER * OR PreOp - Joyce Glover RN - 01/21/2023 3:21 PM CST PATIENT CAN CLIMB 2 FLIGHTS OF STAIRS WITHOUT CP OR EXTREME SOB. yes ACTIVITY TOLERANCE IS THE SAME 6 MONTHS AGO. yes DENIES CARDIAC TESTING. Dr Mccloud is Splicer Machine Operator AVERAGE BLOOD PRESSURE? Good since starting Chlorthalidone Vaccinated against covid-19. Had virus in past. CAR CHECKER documented in this encounter Plan of Treatment Upcoming Encounters Date Type Department Care Team (Late st Contact Info) Description 03/28/2024 7:30 AM BOX CAR CHECKER Hospital Encounter [facility] [place] [address] Antwan Stone DPM [address], [place] [address] 03/28/2024 7:30 AM BOX CAR CHECKER Anesthesia [place] [address] Shanelle Avila, TABLE ASSEMBLER [address] [place] [address] 03/28/2024 7:30 AM BOX CAR CHECKER - 03/28/2024 8:48 AM BOX CAR CHECKER Surgery [place] [address] Antwan Stone DPM [address], [place] [address] REMOVAL OF HARDWARE LEFT FOOT 04/05/2024 8:30 AM BOX CAR CHECKER Office Visit Darren Chaudhari-O'F allon THREE [facility], [facility] [address] [place] [address] Dominick Mccloud MD Three [facility]. [facility] [address] [place] [address] Scheduled Procedures Name Priority Associated Diagnoses Date/Ti me REMOVAL PLATE SCREW OR PIN SCHED BY FAX 02/08/24 [facility] PHONE ASSESS 03/28/2024 7:30 AM BOX CAR CHECKER documented as of this encounter Procedures Procedure Name Priority Date/Time Associated Diagnosis Comments SURG XR FOOT LT 2V Routine 01/28/2023 8:46 AM BOX CAR CHECKER OPEN REDUCTION INTERNAL FIXATION FOOT/METATARSAL 01/28/2023 7:28 AM BOX CAR CHECKER FIFTH METATARSAL FRACTURE Case Notes SCHED BY FAX ON 01/21/23 JDK PHONE ASSESS Special Needs RIVKA HOOK PLATE, VITOSS documented in this encounter Results * SURG XR FOOT LT 2V (01/28/2023 8:46 AM BOX CAR CHECKER) Anatomical Region Laterality Modality Foot Radiographic Trang ging 01/28/2023 12:4 7 PM BOX CAR CHECKER Impressions 01/28/2023 12:47 PM BOX CAR CHECKER Impression: No radiologic interpretation will be issued. ??The report and documentation of this exam will reside in the patient's permanent medical record and in the attending physician's procedure note. Ordered By: ANTWAN STONE Interpreted By: Ruben Mahoney MD, 01/28/2023 12:47 PM Narrative 01/28/2023 12:47 PM BOX CAR CHECKER FLUOROSCOPY CONTROL ONLY Procedure Note Ruben Mahoney [...] 2 minutes, Pre-Op Given 01/28/2023 6:47 AM BOX CAR CHECKER 20 mg HYDROmorphone (DILAUDID) injection 0.2 mg [...] dosing interval., PACU Given 01/28/2023 8:35 AM BOX CAR CHECKER 0.2 mg Given 01/28/2023 8:30 AM BOX CAR CHECKER 0.2 mg lactated ringers infusion at 10 mL/hr, Intravenous, Continuous, Starting on Thu01/28/23 at 0645, Until Thu01/28/23 at 1234, Infuse at TKO rate, Pre-Op New Bag 01/28/2023 7:28 AM BOX CAR CHECKER metoclopramide (REGLAN) injection 10 mg 10 mg, Intravenous, Once, 1 dose, On Thu01/28/23 at 0645, On admission, Pre-Op Given 01/28/2023 6:47 AM BOX CAR CHECKER 10 mg oxyCODONE immediate release (ROXICODONE) tablet 5 mg 5 mg, Oral, Once as needed, Other, Mild pain (Scale 1 - 3), 1 dose, Starting on Thu01/28/23 at 0817, Until Thu01/28/23 at 0845, Do not administer if patient is overly sedated, SpO2 LESS than 90%, or Respiratory Rate LESS than 12., PACU Given 01/28/2023 8:45 AM BOX CAR CHECKER 5 mg documented in this encounter Active and Recently Administered Medications Times are shown in BOX CAR CHECKER. Scheduled Medication Order 01/26/2023 01/27/2023 01/28/2023 ceFAZolin (ANCEF) 3 g in sodium chloride 0.9 % 100 mL IVPB (COMPLETED) 3 g, Intravenous, at 200 mL/hr, call center representative to O.R., 1 dose, First dose on [...] documented as of this encounter Care Teams Aircraft Designer Relationship Specialty Start Date End Date Clara Stanley APNP [address] [place] [address] PCP - General NURSE PRACTITIONER 06/01/18 Dominick Mccloud MD [facility]. [facility] [address] [place] [address] [place] Splicer Machine Operator CARDIOVASCULAR DISEASE 03/28/19 Alexis Lopez MD [address] [facility] [address] [place] [address] PULMONARY DISEASE 10/21/19 documented as of this encounter
--- OUTSIDE RECORDS SUMMARY | 2024-03-02 03:59 | XMS_ITS | Encounter Summary ---
Author Organization [facility] Address [address] [place] [address]. [place], [place] [address] [place] [address] Care Team Providers Care Renal Medicine Physician Name Role Phone Clara Stanley Primary Care Provider [phone] Dominick Mccloud MD Unavailable [phone] Alexis Lopez MD Unavailable [phone] Encounter Details Date Type Department Care Team [...] Contact Info) Description 03/28/2024 7:30 AM [facility] Hospital Encounter [facility] [place] [address] Antwan Stone DPM [address], [address] [place] [address] 03/28/2024 7:30 AM DECKHAND FISHING VESSEL Anesthesia [place] [address] Shanelle Avila, FIELD NURSE CASE MANAGER [address] [place] [address] 03/28/2024 7:30 AM DECKHAND FISHING VESSEL - 03/28/2024 8:48 AM DECKHAND FISHING VESSEL Surgery [place] [address] Antwan Stone, DPM [address], [address] [place] [address] REMOVAL OF HARDWARE LEFT FOOT 04/05/2024 8:30 AM DECKHAND FISHING VESSEL Office Visit Darren Chaudhari-O'F allon THREE [facility], [facility] [address] [place] [address] Dominick Mccloud MD Three [facility]. [facility] [address] [place] [address] Scheduled Procedures Name Priority Associated Diagnoses Date/Ti me REMOVAL PLATE SCREW OR PIN SCHED BY FAX 02/08/24 [facility] PHONE ASSESS 03/28/2024 7:30 AM DECKHAND FISHING VESSEL documented as of this encounter Visit Diagnoses Not on filedocumented in this encounter Additional Health Concerns Assessment Noted Time PHQ-9 Depression Total Score: 0 10/26/19 22 11:07 AM CDT documented as of this encounter Care Teams Renal Medicine Physician Relationship Specialty Start Date End Date Clara Stanley APNP [address] [place] [address] PCP - General NURSE PRACTITIONER 06/01/18 Dominick Mccloud MD [facility]. [facility] [address] [place] [address] [place] Inspector Bicycle CARDIOVASCULAR DISEASE 03/28/19 Alexis Lopez MD [address] [facility] [address] [place] [address] PULMONARY DISEASE 10/21/19 documented as of this encounter
--- OUTSIDE RECORDS SUMMARY | 2024-03-02 03:59 | XMS_ITS | Encounter Summary ---
Author Organization [facility] Address [address] [place] [address]. [place], [place] [address] [place] [address] Care Team Providers Care Entry Level Lab Technician Name Role Phone Clara Stanley Primary Care Provider [phone] Dominick Mccloud MD Unavailable [phone] Alexis Lopez MD Unavailable [phone] Encounter Details Date Type Department Care Team [...] [facility] Hospital Encounter [facility] One Day Services [place], [place] [id number] Antwan Stone DPM [address], [place] [address] 03/28/2024 7:30 AM METER TESTER POLYPHASE Anesthesia Event [facility] [place] [address] Shanelle Avila, SUPERVISOR [employer]UM PLANT 1 [place] [address] 03/28/2024 7:30 AM METER TESTER POLYPHASE - 03/28/2024 8:48 AM METER TESTER POLYPHASE Surgery [facility] [place] [address] Antwan Stone, DPM [address], [place] [address] REMOVAL OF HARDWARE LEFT FOOT 04/05/2024 8:30 AM METER TESTER POLYPHASE Office Visit [facility] THREE [facility], [facility] [address] [place], [place] [address] Dominick Mccloud MD Three [facility]. [facility] [address] [place], [place] [address] Scheduled Procedures Name Priority Associated Diagnoses Date/Ti me REMOVAL PLATE SCREW OR PIN SCHED BY FAX 02/08/24 [facility] PHONE ASSESS 03/28/2024 7:30 AM METER TESTER POLYPHASE documented as of this encounter Visit Diagnoses Not on filedocumented in this encounter Additional Health Concerns Assessment Noted Time PHQ-9 Depression Total Score: 0 10/26/19 22 11:07 AM CDT documented as of this encounter Care Teams Entry Level Lab Technician Relationship Specialty Start Date End Date Clara Stanley APNP [facility]1 [place] [address] PCP - General NURSE PRACTITIONER 06/01/18 Dominick Mccloud MD [facility]. [facility] [address] [place] [address] Bartelso Airline Reservation Agent CARDIOVASCULAR DISEASE 03/28/19 Alexis Lopez MD [address] [facility] [address] [place] [address] PULMONARY DISEASE 10/21/19 documented as of this encounter
--- OUTSIDE RECORDS SUMMARY | 2024-03-02 03:59 | XMS_ITS | Encounter Summary ---
Author Organization [facility] Address [address] [place] [address]. [place], [place] [address] [place] [address] Care Team Providers Care Logistics Supply Officer Name Role Phone Clara Stanley Primary Care Provider [phone] Dominick Mccloud MD Unavailable [phone] Alexis Lopez MD Unavailable [phone] Encounter Details Date Type Department Care Team [...] st Contact Info) Description 03/28/2024 7:30 AM [facility] Hospital Encounter [facility] [place] [address] Antwan Stone DPM [address], [place] [address] 03/28/2024 7:30 AM VARITYPIST Anesthesia Event [place] [address] Shanelle Avila, DRY PLACER 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 [address] [place] [address] 03/28/2024 7:30 AM VARITYPIST - 03/28/2024 8:48 AM VARITYPIST Surgery [facility] [place] [address] Antwan Stone, DPM [address], [address] [place] [address] REMOVAL OF HARDWARE LEFT FOOT 04/05/2024 8:30 AM VARITYPIST Office Visit [facility]ren Chaudhari-O'F allon THREE [facility], [facility] [address] [place] [address] Dominick Mccloud MD Three [facility]. [facility] [address] [place] [address] Scheduled Procedures Name Priority Associated Diagnoses Date/Ti me REMOVAL PLATE SCREW OR PIN SCHED BY FAX 02/08/24 [facility] PHONE ASSESS 03/28/2024 7:30 AM VARITYPIST documented as of this encounter Visit Diagnoses Not on filedocumented in this encounter Additional Health Concerns Assessment Noted Time PHQ-9 Depression Total Score: 0 10/26/19 22 11:07 AM CDT documented as of this encounter Care Teams Logistics Supply Officer Relationship Specialty Start Date End Date Clara Stanley APNP [address] [place] [address] PCP - General NURSE PRACTITIONER 06/01/18 Dominick Mccloud MD [facility]. [facility] [address] [place] [address] Glennie Metal Sprayer Machined Parts CARDIOVASCULAR DISEASE 03/28/19 Alexis Lopez MD [address] [facility] [address] [place] [address] PULMONARY DISEASE 10/21/19 documented as of this encounter
--- OUTSIDE RECORDS SUMMARY | 2024-03-02 03:59 | XMS_ITS | Encounter Summary ---
Author Organization [facility] Address [address] [place] [address]. [place], [place] [address] [place] [address] Care Team Providers Care Group Controller Name Role Phone Clara Stanley Primary Care Provider [phone] Dominick Mccloud MD Unavailable [phone] Alexis Lopez MD Unavailable [phone] Reason for Visit * Reason Comments Weight Problem Encounter Details Date Type Department Care Team (Late st Contact Info) Description 09/10/2023 1:00 PM CDT Office Visit [facility] Medical Group Family & Internal Medicine [facility] [address] [place] [address] Clara Stanley APNP [address] [place], [place] [id number] Weight Problem Social History Tobacco Use Types [...] from the original note were not included. 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 ([facility]) Asthma ([facility]) Depression with anxiety 12/12/2014 GERD (gastroesophageal reflux disease) 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/2019 HLD (hyperlipidemia) HTN (hypertension) IIH (idiopathic intracranial hypertension) Morbid obesity ([facility]) 02/21/2015 Non-small cell carcinoma of lung ([facility]) s/p right lobectomy LEONOR (obstructive sleep apnea) Surgical History: Past Surgical History: Procedure Laterality Date APPENDECTOMY BRONCHOSCOPY COLONOSCOPY N/A 03/21/2022 COLONOSCOPY performed by Joe Medina DO at [facility] COLONOSCOPY STOMA DX INCLUDING COLLJ SPEC [...] (BMI)of 40.0 to 44.9 in adult (CMS/HCC [facility]) tirzepatide (ZEPBOUND) 2.5 MG/0.5ML injection 2. Mixed hyperlipidemia Chronic tirzepatide (ZEPBOUND) 2.5 MG/0.5ML injection Recommendations and Plan: 1. Class 3 severe obesity due to excess calories with serious comorbidity and body mass index (BMI)of 40.0 to 44.9 in adult ([facility]/HCC [facility]) - tirzepatide (ZEPBOUND) 2.5 MG/0.5ML injection; Inject [...] st Contact Info) Description 03/28/2024 7:30 AM [facility] Hospital Encounter [facility] [address] Antwan Stone DPM [address], [place] [address] 03/28/2024 7:30 AM FLAME CUTTING 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 Anesthesia [place] [address] Shanelle Avila, HEAVY EQUIPMENT OPERATOR/PAVER 1 [place] [address] 03/28/2024 7:30 AM FLAME CUTTING 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 - 03/28/2024 8:48 AM FLAME CUTTING 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 Surgery [facility] [place] [address] Antwan Stone, DPM [address], [place] [address] REMOVAL OF HARDWARE LEFT FOOT 04/05/2024 8:30 AM FLAME CUTTING 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 Office Visit [facility] THREE [facility], [facility] [address] [place] [address] Dominick Mccloud MD Three [facility]. [facility] [address] [place] [address] Scheduled Procedures Name Priority Associated Diagnoses Date/Ti me REMOVAL PLATE SCREW OR PIN SCHED BY FAX 02/08/24 [facility] PHONE ASSESS 03/28/2024 7:30 AM FLAME CUTTING 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 documented as of this encounter Visit Diagnoses Diagnosis Class 3 severe obesity due to excess calories with serious comorbidity and body mass index (BMI) of 40.0 to 44.9 in adult ([facility]/HCC [facility]/HCC)- Primary Mixed hyperlipidemia Painful orthopaedic hardware ([facility])- Primary documented in this encounter Additional Health Concerns Assessment Noted Time PHQ-9 Depression Total Score: 0 10/26/19 22 11:07 AM CDT documented as of this encounter Care Teams Group Controller Relationship Specialty Start Date End Date Clara Stanley APNP [address] [place] [address] PCP - General NURSE PRACTITIONER 06/01/18 Dominick Mccloud MD [facility]. [facility] [address] [place] [address] Fely Histopathology Technician CARDIOVASCULAR DISEASE 03/28/19 Alexis Lopez MD [address] [facility] [address] [address] PULMONARY DISEASE 10/21/19 documented as of this encounter
--- OUTSIDE RECORDS SUMMARY | 2024-03-02 03:59 | XMS_ITS | Encounter Summary ---
Author Organization [facility] Address [address] [place] [address]. [place] [address] [place] [address] Care Team Providers Care Dairy Manufacturing Technologist Name Role Phone Clara Stanley Primary Care Provider [phone] Dominick Mccloud MD Unavailable [phone] Alexis Lopez MD Unavailable [phone] Reason for Visit * Reason Comments Hypertension 6 month follow up Encounter Details Date Type Department Care Team (Late st Contact Info) Description 09/28/2023 9:15 AM CDT Office Visit [facility]Leisa jacobson THREE [facility], [facility] [place] [address] [place], [place] [id number] Earnestine Perry, TJ Three [facility] [address] [place], [place] [id number] Hypertension (6 month follow up) Social History [...] He is scheduled to see oncology at [place] on October 07 ASSESSMENT AND PLAN: PROBLEM [...] block. 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 ([facility]/HCC) Asthma ([facility]) Depression with anxiety 12/12/2014 GERD (gastroesophageal reflux disease) 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/2019 HLD (hyperlipidemia) HTN (hypertension) IIH (idiopathic intracranial hypertension) Morbid obesity ([facility]) 02/21/2015 Non-small cell carcinoma of lung ([facility]) s/p right lobectomy LEONOR (obstructive sleep apnea) Past Surgical History: Procedure Laterality Date APPENDECTOMY BRONCHOSCOPY COLONOSCOPY N/A 03/21/2022 COLONOSCOPY performed by Joe Medina DO at [facility] GI COLONOSCOPY STOMA DX INCLUDING COLLJ SPEC [...] st Contact Info) Description 03/28/2024 7:30 AM [facility] Hospital Encounter [facility] [place] [address] Antwan Stone DPM [address] [place] [address] 03/28/2024 7:30 AM CLINICAL PROGRAM DIRECTOR Anesthesia Event [place] [address] Shanelle Avila, VOICE OVER ANNOUNCER 1 [place] [address] 03/28/2024 7:30 AM CLINICAL PROGRAM DIRECTOR - 03/28/2024 8:48 AM CLINICAL PROGRAM DIRECTOR Surgery [place] [address] Antwan Sotne, DPM [address], [place] [address] REMOVAL OF HARDWARE LEFT FOOT 04/05/2024 8:30 AM CLINICAL PROGRAM DIRECTOR Office Visit [facility] Chaudhari-O'F allon THREE [facility], [facility] [address] [place] [address] Dominick Mccloud MD Three [facility]. [facility] [address] [place] [address] Scheduled Procedures Name Priority Associated Diagnoses Date/Ti me REMOVAL PLATE SCREW OR PIN SCHED BY FAX 02/08/24 [facility] PHONE ASSESS 03/28/2024 7:30 AM CLINICAL PROGRAM DIRECTOR documented as of this encounter Visit Diagnoses Diagnosis Essential (primary) hypertension- Primary Unspecified essential hypertension Pure hypercholesterolemia Shortness of breath Painful orthopaedic hardware (CMS/HCC)- Primary documented in this encounter Additional Health Concerns Assessment Noted Time PHQ-9 Depression Total Score: 0 10/26/19 22 11:07 AM CDT documented as of this encounter Care Teams Dairy Manufacturing Technologist Relationship Specialty Start Date End Date Clara Stanley APNP [address] [place] [address] PCP - General NURSE PRACTITIONER 06/01/18 Dominick Mccloud MD [facility]. [facility] [address] [place] [address] [place] Pattern Data Operator CARDIOVASCULAR DISEASE 03/28/19 Alexis Lopez MD [address] [facility] [address] [place] [address] PULMONARY DISEASE 10/21/19 documented as of this encounter
--- OUTSIDE RECORDS SUMMARY | 2024-03-02 03:59 | XMS_ITS | Encounter Summary ---
Author Organization [facility] Address [address] [place] [address]. [place], [place] [address] [place] [address] Care Team Providers Care Special Forces Engineer Sergeant Name Role Phone Clara Stanley Primary Care Provider [phone] Dominick Mccloud MD Unavailable [phone] Alexis Lopez MD Unavailable [phone] Encounter Details Date Type Department Care Team [...] 7:30 AM [facility] Hospital Encounter [facility] One Day Services [place], [place] [phone] Antwan Stone DPM [address], [place] [address] 03/28/2024 7:30 AM CUSTOMER SERVICES COORDINATOR Anesthesia Event [facility] [place] [address] Shanelle Avila, HOME HEALTH ADMINISTRATOR 1 [place] [address] 03/28/2024 7:30 AM CUSTOMER SERVICES COORDINATOR - 03/28/2024 8:48 AM CUSTOMER SERVICES COORDINATOR Surgery [facility] [place] [address] Antwan Stone, DPM [address], [place] [address] REMOVAL OF HARDWARE LEFT FOOT 04/05/2024 8:30 AM CUSTOMER SERVICES COORDINATOR Office Visit [facility] THREE [facility], [facility] [address] [place], [place] [address] Dominick Mccloud MD Three [facility]. [facility] [address] [place], [place] [address] Scheduled Procedures Name Priority Associated Diagnoses Date/Ti me REMOVAL PLATE SCREW OR PIN SCHED BY FAX 02/08/24 [facility] PHONE ASSESS 03/28/2024 7:30 AM CUSTOMER SERVICES COORDINATOR documented as of this encounter Visit Diagnoses Not on filedocumented in this encounter Additional Health Concerns Assessment Noted Time PHQ-9 Depression Total Score: 0 10/26/19 22 11:07 AM CDT documented as of this encounter Care Teams Special Forces Engineer Sergeant Relationship Specialty Start Date End Date Clara Stanley APNP [facility] [place] [address] PCP - General NURSE PRACTITIONER 06/01/18 Dominick Mccloud MD [facility]. [facility] [address] [place] [address] [place] Junior Database Administrator CARDIOVASCULAR DISEASE 03/28/19 Alexis Lopez MD [address] [facility] [address] [place] [address] PULMONARY DISEASE 10/21/19 documented as of this encounter
--- OUTSIDE RECORDS SUMMARY | 2024-03-02 03:59 | XMS_ITS | Encounter Summary ---
Author Organization [facility] Address [address] [place] [address]. [place], [place] [address] [place] [address] Care Team Providers Care Athletic Events Scorer Name Role Phone Clara Stanley Primary Care Provider [phone] Dominick Mccloud MD Unavailable [phone] Alexis Lopez MD Unavailable [phone] Encounter Details Date Type Department Care Team [...] AM [facility] Hospital Encounter [facility] One Day Services [place], [place] [id number] Antwan Stone DPM [address], [place] [address] 03/28/2024 7:30 AM PILOT CAN ROUTER Anesthesia Event [facility] [place] [address] Shanelle Avila, EXPORT CLERK [address] [place] [address] 03/28/2024 7:30 AM PILOT CAN ROUTER - 03/28/2024 8:48 AM PILOT CAN ROUTER Surgery [facility] [place] [address] Atnwan Stone, DPM [address], [place] [address] REMOVAL OF HARDWARE LEFT FOOT 04/05/2024 8:30 AM PILOT CAN ROUTER Office Visit [facility]'F all[facility] THREE [facility], [facility] [address] [place], [place] [address] Dominick Mccloud MD Three [facility]. [facility] [address] [place], [place] [address] Scheduled Procedures Name Priority Associated Diagnoses Date/Ti me REMOVAL PLATE SCREW OR PIN SCHED BY FAX 02/08/24 [facility] PHONE ASSESS 03/28/2024 7:30 AM PILOT CAN ROUTER documented as of this encounter Visit Diagnoses Not on filedocumented in this encounter Additional Health Concerns Assessment Noted Time PHQ-9 Depression Total Score: 0 10/26/19 22 11:07 AM CDT documented as of this encounter Care Teams Athletic Events Scorer Relationship Specialty Start Date End Date Clara Stanley APNP [facility]1 [place] [address] PCP - General NURSE PRACTITIONER 06/01/18 Dominick Mccloud MD [facility]. [facility] [address] [place] [address] [place] Data Deliverables Manager CARDIOVASCULAR DISEASE 03/28/19 Alexis Lopez MD [address] [facility] [address] [place] [address] PULMONARY DISEASE 10/21/19 documented as of this encounter
--- OUTSIDE RECORDS SUMMARY | 2024-03-02 03:59 | XMS_ITS | Encounter Summary ---
Author Organization [facility] Address [address] [place] [address]. [place], [place] [address] [place] [address] Care Team Providers Care Retail Cosmetics Sales Counter Manager Name Role Phone Clara Stanley Primary Care Provider [phone] Dominick Mccloud MD Unavailable [phone] Alexis Lopez MD Unavailable [phone] Reason for Visit * Reason Comments Physical Encounter Details Date Type Department Care Team (Late st Contact Info) Description 12/23/2022 11:00 AM CDT Office Visit [facility] Medical Group Family & Internal Medicine [facility] [address] [place] [address] Clara Stanley APNP [facility]1 [place], [place] [id number] Physical Social History Tobacco Use Types Packs/Day [...] from the original note were not included. [facility] FAMILY AND INTERNAL MEDICINE OFFICE VISIT Reason [...] mouth daily., Disp: 30 tablet, Rfl: 2 Fodsuhxrfsk-Srtkvgvjj-Arjsdw (TRELEGY ELLIPTA) 100-62.5-25 MCG/ACT AEROSOL POWDER, BREATH [...] , Rfl: vitamin D3, cholecalciferol, 1.25 MG (98114 UT) capsule, Take 1 capsule (50,000 Units [...] reflux disease) High grade neuroendocrine carcinoma (HHS/HCC) ([facility]) 05/10/2019 HLD (hyperlipidemia) HTN (hypertension) IIH (idiopathic intracranial hypertension) Morbid obesity ([facility]/HCC) 02/21/2015 Non-small cell carcinoma of lung (HHS/HCC) ([facility]) s/p right lobectomy Surgical History: Past Surgical History: Procedure Laterality Date APPENDECTOMY BRONCHOSCOPY COLONOSCOPY COLONOSCOPY N/A 03/21/2022 COLONOSCOPY performed by Joe Medina DO at [facility] GI LUMBAR PUNCTURE 03/28/2019 REMOVAL OF LUNG,LOBECTOMY [...] for prophylactic vaccination against Streptococcus pneumoniae (pneumococcus) [32082] Prevnar 20 (Pneumococcal) 8. Need for immunization against influenza [04643] FLU VACC QUAD 6 MONTHS+ 0.5 ML [...] index (BMI)of 45.0 to 49.9 in adult ([facility]) - CBC W/DIFF AUTOMATED; Future - [...] prophylactic vaccination against Streptococcus pneumoniae (pneumococcus) - [27116] Prevnar 20 (Pneumococcal) 8. Need for immunization against influenza - [06145] FLU VACC QUAD 6 MONTHS+ 0.5 ML (SINGLE DOSE SYRINGE FLUZONE, FLUARIX, FLULAVAL OR SINGLE DOSE VIAL FLUZONE) Orders Placed This Encounter CBC W/DIFF AUTOMATED TSH W/REFLEX PROSTATE SPECIFIC ANTIGEN,SCREENING HEPATITIS C ANTIBODY W/RFX TO HCV RNA ([facility] ONLY) [90960] Prevnar 20 (Pneumococcal) [68974] FLU VACC QUAD 6 MONTHS+ 0.5 ML (SINGLE DOSE SYRINGE FLUZONE, FLUARIX, FLULAVAL OR SINGLE DOSE VIAL FLUZONE) liraglutide, Weight Management, (SAXENDA) 18 MG/3ML injection Cannot display discharge medications since this is not an admission. PCP: ZEB Nunn 12/23/2022 documented in this encounter Plan of Treatment Upcoming Encounters Date Type Department Care Team (Late st Contact Info) Description 03/28/2024 7:30 AM ULTRASOUND SUPERVISOR Hospital Encounter [facility] [place] [address] Antwan Stone, DIEGO [address], [place] [address] 03/28/2024 7:30 AM ULTRASOUND SUPERVISOR Anesthesia [place] [address] Shanelle Avila, PSYCHOLOGIST PRIVATE PRACTICE 1 [place] [address] 03/28/2024 7:30 AM ULTRASOUND SUPERVISOR - 03/28/2024 8:48 AM ULTRASOUND SUPERVISOR Surgery [facility] [place] [address] Antwan Stone DPM [address], [place] [address] REMOVAL OF HARDWARE LEFT FOOT 04/05/2024 8:30 AM ULTRASOUND SUPERVISOR Office Visit Darren Chaudhari-O'F allon THREE [facility], [facility] [address] [place] [address] Dominick Mccloud MD Three [facility]. [facility] [address] [place] [address] Scheduled Procedures Name Priority Associated Diagnoses Date/Ti me REMOVAL PLATE SCREW OR PIN SCHED BY FAX 02/08/24 [facility] PHONE ASSESS 03/28/2024 7:30 AM ULTRASOUND SUPERVISOR documented as of this encounter Procedures Procedure Name Priority Date/Time Associated Diagnosis Comments HEPATITIS C ANTIBODY W/RFX TO HCV RNA Routine 04/10/2023 10:14 AM ULTRASOUND SUPERVISOR Need for hepatitis C screening test TSH W/REFLEX Routine 04/10/2023 10:12 AM ULTRASOUND SUPERVISOR Class 3 severe obesity due to excess calories with serious comorbidity and body mass index (BMI) of 45.0 to 49.9 in adult (CMS/HCC HHS/HCC) Mixed hyperlipidemia PROSTATE SPECIFIC ANTIGEN,SCREENING Routine 04/10/2023 10:12 AM ULTRASOUND SUPERVISOR Prostate cancer screening CBC W/DIFF AUTOMATED Routine 04/10/2023 10:12 AM ULTRASOUND SUPERVISOR Class 3 severe obesity due to excess calories with serious comorbidity and body mass index (BMI) of 45.0 to 49.9 in adult (CMS/HCC HHS/HCC) documented in this encounter Results * HEPATITIS C ANTIBODY W/RFX TO HCV RNA ([facility] ONLY) (04/10/2023 10:14 AM ULTRASOUND SUPERVISOR) HEPATITIS C AB Non Reactive Non Reacti [facility] 1 INTERPRETATION Comment [facility] 1 Comment: Not infected with HCV unless early or acute infection is suspected (which may be delayed in an immunocompromised individual), or other evidence exists to indicate HCV infection. 04/10/2023 10:1 4 AM ULTRASOUND SUPERVISOR 04/10/2023 Narrative [facility] - 04/11/2023 4:08 AM ULTRASOUND SUPERVISOR Performed at: ??01 - [facility] [address] ??[id number] Road Advisor: Xander Juárez PhD, Phone: ??[phone] Clara H Lizeth APNP LABORATORY Final Resul t Performing Organization Address City/[facility] Co de Phone Number [facility] [address] [place] [address] [facility] 1 * PROSTATE SPECIFIC ANTIGEN,SCREENING (04/10/2023 10:12 AM ULTRASOUND SUPERVISOR) PSA 0.8 0.0 - 4.0 ng/mL [facility] 1 Comment: [employer] ECLIA methodology. According to the [place] [employer], Serum PSA should decrease and [...] of malignant disease. 04/10/2023 10:1 2 AM ULTRASOUND SUPERVISOR 04/10/2023 Narrative [facility] - 04/11/2023 4:08 AM ULTRASOUND SUPERVISOR Performed at: ??01 - [facility] ??[id number] Road Advisor: Xander Juárez PhD, Phone: ??[phone] Clara CARRINGTON LABORATORY Final Resul t Performing Organization Address [facility] de Phone Number [facility] [address] [place] [address] [facility] 1 * TSH W/REFLEX (04/10/2023 10:12 AM ULTRASOUND SUPERVISOR) Pathologist [facility] TSH 2.310 0.450 - 4.50 uIU/mL [facility] 1 04/10/2023 10:1 2 AM ULTRASOUND SUPERVISOR 04/10/2023 Narrative [facility] - 04/11/2023 4:08 AM ULTRASOUND SUPERVISOR Performed at: ??01 - [facility] ??[id number] Road Advisor: Xander Juárez PhD, Phone: ??[phone] Clara CARRINGTON LABORATORY Final Resul t Performing Organization Address [facility] Co de Phone Number [facility] [address] [place] [id number] [facility] 1 * CBC W/DIFF AUTOMATED (04/10/2023 10:12 AM ULTRASOUND SUPERVISOR) Pathologist [facility] WBC 8.8 3.4 - 10.8 x10E3/uL [facility] [...] x10E3/uL [facility] 1 04/10/2023 10:1 2 AM ULTRASOUND SUPERVISOR 04/10/2023 Narrative [facility] - 04/11/2023 4:08 AM ULTRASOUND SUPERVISOR Performed at: ??01 - [facility] [address] ??[id number] Advisor: Xander Juárez PhD, Phone: ??[phone] Clara CARRINGTON LABORATORY Final Resul t [facility] [address] [place] [address] [facility] 1 documented in this encounter Visit [...] and inoculation against influenza Painful orthopaedic hardware ([facility])- Primary documented in this encounter Additional Health Concerns Assessment Noted Time PHQ-9 Depression Total Score: 0 10/26/19 22 11:07 AM CDT documented as of this encounter Care Teams Retail Cosmetics Sales Counter Manager Relationship Specialty Start Date End Date Clara Stanley APNP [address] [place] [address] PCP - General NURSE PRACTITIONER 06/01/18 Dominick Mccloud MD [facility] [address] [place] [address] [place] [facility] Clinical Director CARDIOVASCULAR DISEASE 03/28/19 [place] [address] [place] [address] PULMONARY DISEASE 10/21/19 documented as of this encounter
--- OUTSIDE RECORDS SUMMARY | 2024-03-02 03:59 | XMS_ITS | Encounter Summary ---
Author Organization [facility] Address [address] [place] [address]. [place], [place] [address] [place] [address] Care Team Providers Care Director Of Cardiac Cath Lab Name Role Phone Clara Stanley Primary Care Provider [phone] Dominick Mccloud MD Unavailable [phone] Alexis Lopez MD Unavailable [phone] Reason for Visit * Reason Onset Date Comments Appointment Request 08/20/2023 Medication Request 08/20/2023 Encounter Details Date Type Department Care Team (Latest Contact Info) Description 08/20/2023 MyChart Message Enc [facility] Medical Group Family & Internal Medicine [facility] [address] [place] [address] Clara Stanley APNP [address] [place] [address] Weight Loss Drug Prescription Social [...] st Contact Info) Description 03/28/2024 7:30 AM CHARGE ATTENDANT Hospital Encounter [facility] [place] [address] Antwan Stone, DPM [address], [place] [address] 03/28/2024 7:30 AM CHARGE ATTENDANT Anesthesia Event [place] [address] Shanelle Avila, CUT OUT AND MARKING 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 1 [place] [address] 03/28/2024 7:30 AM CHARGE ATTENDANT - 03/28/2024 8:48 AM CHARGE ATTENDANT Surgery [facility] [place] [address] Antwan Stone, DIEGO [address], [place] [address] REMOVAL OF HARDWARE LEFT FOOT 04/05/2024 8:30 AM CHARGE ATTENDANT Office Visit [facility] Cardi[facility]-O'F allon THREE [facility] [address] [place] [address] Dominick Mccloud MD Three [facility] [place] [facility]. [facility] [address] [place] [address] Scheduled Procedures Name Priority Associated Diagnoses Date/Ti me REMOVAL PLATE SCREW OR PIN SCHED BY FAX 02/08/24 KAYLIE PHONE ASSESS 03/28/2024 7:30 AM CHARGE ATTENDANT documented as of this encounter Visit Diagnoses Not on filedocumented in this encounter Additional Health Concerns Assessment Noted Time PHQ-9 Depression Total Score: 0 10/26/19 22 11:07 AM CDT documented as of this encounter Care Teams Director Of Cardiac Cath Lab Relationship Specialty Start Date End Date Clara Stanley APNP [facility]1 [place] [address] PCP - General NURSE PRACTITIONER 06/01/18 Dominick Mccloud MD [address] [address] [facility] Oracle Iam Consultant CARDIOVASCULAR DISEASE 03/28/19 Alexis Lopez MD [address] [address] PULMONARY DISEASE 10/21/19 documented as of this encounter
--- OUTSIDE RECORDS SUMMARY | 2024-03-02 03:59 | XMS_ITS | Encounter Summary ---
Author Organization [facility] Address [address] [place] [address]. [place], [place] [address] [place] [address] Care Team Providers Care Cracker And Cookie Machine Operator Name Role Phone Clara Stanley Primary Care Provider [phone] Dominick Mccloud MD Unavailable [phone] Alexis Lopez MD Unavailable [phone] Reason for Visit * Reason Comments Image [...] 03/28/2024 7:30 AM [facility] Hospital Encounter [facility] [place] [address] Antwan Stone DPM [address], [place] [address] 03/28/2024 7:30 AM STAFFING DIRECTOR Anesthesia [place] [address] Shanelle Avila, PRIVACY OFFICER 1 [place] [address] 03/28/2024 7:30 AM STAFFING DIRECTOR - 03/28/2024 8:48 AM STAFFING DIRECTOR Surgery [place] [address] Antwan Stone, DIEGO [address], [place] [address] REMOVAL OF HARDWARE LEFT FOOT 04/05/2024 8:30 AM STAFFING DIRECTOR Office Visit Gentry Fara-O'F allon THREE [facility], [facility] [address] [place], [place] [address] Dominick Mccloud MD Three [facility]. [facility] [address] [place] [address] Scheduled Procedures Name Priority Associated Diagnoses Date/Ti me REMOVAL PLATE SCREW OR PIN SCHED BY FAX 02/08/24 KAYLIE PHONE ASSESS 03/28/2024 7:30 AM STAFFING DIRECTOR documented as of this encounter Procedures [...] documented as of this encounter Care Teams Cracker And Cookie Machine Operator Relationship Specialty Start Date End Date Clara Stanley APNP [address] [place] [address] PCP - General NURSE PRACTITIONER 06/01/[address] [facility] [address] [place] [address] [place] Instrument Checker CARDIOVASCULAR DISEASE 03/28/19 Alexis Lopez MD [address] [facility] [address] [place] [address] PULMONARY DISEASE 10/21/19 documented as of this encounter
--- OUTSIDE RECORDS SUMMARY | 2024-03-02 03:59 | XMS_ITS | Encounter Summary ---
Author Organization [facility] Address [address] [place] [address]. [place], [place] [address] [place] [address] Care Team Providers Care Meat Cutting Block Repairer Name Role Phone Clara Stanley Primary Care Provider [phone] Dominick Mccloud MD Unavailable [phone] Alexis Lopez MD Unavailable [phone] Encounter Details Date Type Department Care Team (Latest Contact Info) Description 01/22/2023 12:26 PM CABLE CUTTER AND SWAGER - 01/22/2023 1:11 PM [facility] Hospital Encounter [facility] One Day Services [place], [place] [address] Antwan Stone, DIEGO [address] [facility] [place] [address] Discharge Disposition: Home or Self Care (Routine [...] Comments Blood Pressure 143/81 01/22/2023 12:00 PM CABLE CUTTER AND SWAGER normally 130s/80s at home Pulse 79 01/22/2023 12:00 PM CABLE CUTTER AND SWAGER Temperature 36.6 ??C (97.9 ??F) 01/22/2023 1 2:00 PM CABLE CUTTER AND SWAGER Respiratory Rate 18 01/22/2023 12:0 0 PM CABLE CUTTER AND SWAGER Oxygen Saturation 99% 01/22/2023 12: 00 PM CABLE CUTTER AND SWAGER Inhaled Oxygen Concentration - - Weight - [...] mouth daily. vitamin D3, cholecalciferol, 1.25 MG (03912 UT) capsule Take 1 capsule (50,000 Units [...] 3 oxyCODONE-acetaminop hen (PERCOCET) 5-325 MG tabletIndications:Ac [place] Pain < 7 Day Supply Take 1-2 [...] after pivoting wrong in 04/2022. His initial home health occupational therapist recommended conservative management with post-op boot and [...] total) by mouth daily. 30 tablet 2 Lnzjeulqbia-Mfcpmifef-Dlojak (TRELEGY ELLIPTA) 100-62.5-25 MCG/ACT AEROSOL POWDER, BREATH [...] mouth daily. vitamin D3, cholecalciferol, 1.25 MG (81236 UT) capsule Take 1 capsule (50,000 Units total) by mouth weekly. No current facility-administered medications on file prior to encounter. 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/2019 HLD (hyperlipidemia) HTN (hypertension) IIH (idiopathic intracranial hypertension) Morbid obesity ([facility]/HCC) 02/21/2015 Non-small cell carcinoma of lung (HHS/HCC) ([facility]) s/p right lobectomy LEONOR (obstructive sleep [...] Imani Bauer MD at 01/22/2023 8:21 PM CABLE CUTTER AND SWAGER E CUTTER AND SWAGER E CUTTER AND SWAGER documented in this encounter Plan of Treatment Upcoming Encounters Date Type Department Care Team (Late st Contact Info) Description 03/28/2024 7:30 AM CABLE CUTTER AND SWAGER Hospital Encounter [facility] [place] [address] Antwan Stone DPM [address], [place] [address] 03/28/2024 7:30 AM CABLE CUTTER AND SWAGER Anesthesia [place] [address] Shanelle Avila, SPANISH INTERPRETER 1 [place] [address] 03/28/2024 7:30 AM CABLE CUTTER AND SWAGER - 03/28/2024 8:48 AM CABLE CUTTER AND SWAGER Surgery [place] [address] Antwan Stone DPM [address] [place] [address] REMOVAL OF HARDWARE LEFT FOOT 04/05/2024 8:30 AM CABLE CUTTER AND SWAGER Office Visit Darren Chaudhari-O'F allon THREE [facility], [address] [address] Dominick Mccloud MD [address] [address] Scheduled Procedures Name Priority Associated Diagnoses Date/Ti me REMOVAL PLATE SCREW OR PIN SCHED BY FAX 02/08/24 [facility] PHONE ASSESS 03/28/2024 7:30 AM CABLE CUTTER AND SWAGER documented as of this encounter Visit Diagnoses Not on filedocumented in this encounter Additional Health Concerns Assessment Noted Time PHQ-9 Depression Total Score: 0 10/26/19 22 11:07 AM CDT documented as of this encounter Care Teams Meat Cutting Block Repairer Relationship Specialty Start Date End Date Clara Stanley APNP [address] [place] [address] PCP - General NURSE PRACTITIONER 06/01/18 Dominick Mccloud MD [facility] [place] [facility]. [address] [address] [place] Joint Maker Machine CARDIOVASCULAR DISEASE 03/28/19 Alexis Lopez MD [address] [address] PULMONARY DISEASE 10/21/19 documented as of this encounter
--- OUTSIDE RECORDS SUMMARY | 2024-03-02 03:59 | XMS_ITS | Encounter Summary ---
Author Organization [facility] Address [address] [place] [address]. [place], [place] [address] [place] [address] Care Team Providers Care Stonecutter Name Role Phone Clara Stanley Primary Care Provider [phone] Dominick Mccloud MD Unavailable [phone] Alexis Lopez MD Unavailable [phone] Encounter Details Date Type Department Care Team [...] [facility] Hospital Encounter [facility] One Day Services [place], [place] [id number] Antwan Stone DPM [address], [place] [address] 03/28/2024 7:30 AM SENIOR PROCESS ANALYST Anesthesia Event [facility] [place] [address] Shanelle Avila, VEGETABLE SORTER 1 [place] [address] 03/28/2024 7:30 AM SENIOR PROCESS ANALYST - 03/28/2024 8:48 AM SENIOR PROCESS ANALYST Surgery [facility] [place] [address] Antwan Stone, DPM [address], [place] [address] REMOVAL OF HARDWARE LEFT FOOT 04/05/2024 8:30 AM SENIOR PROCESS ANALYST Office Visit [facility] Cardi[facility]-O'F allon [facility], [facility] [address] [place], [place] [address] Dominick Mccloud MD Three [facility]. [facility] [address] [place], [place] [address] Scheduled Procedures Name Priority Associated Diagnoses Date/Ti me REMOVAL PLATE SCREW OR PIN SCHED BY FAX 02/08/24 [facility] PHONE ASSESS 03/28/2024 7:30 AM SENIOR PROCESS ANALYST documented as of this encounter Visit Diagnoses Not on filedocumented in this encounter Additional Health Concerns Assessment Noted Time PHQ-9 Depression Total Score: 0 10/26/19 22 11:07 AM CDT documented as of this encounter Care Teams Stonecutter Relationship Specialty Start Date End Date Clara Stanley APNP [facility]1 [place] [address] PCP - General NURSE PRACTITIONER 06/01/18 Dominick Mccloud MD [facility]. [facility] [address] [place] [address] [place] Central [facility] Frame Wirer CARDIOVASCULAR DISEASE 03/28/19 Alexis Lopez MD [address] [facility] [address] [place] [address] [place] [address] PULMONARY DISEASE 10/21/19 documented as of this encounter
--- OUTSIDE RECORDS SUMMARY | 2024-03-02 03:59 | XMS_ITS | Encounter Summary ---
Author Organization [facility] Address [address] [place] [address]. [place], [place] [address] [place] [address] Care Team Providers Care Computator Name Role Phone Clara Stanley Primary Care Provider [phone] Dominick Mccloud MD Unavailable [phone] Alexis Lopez MD Unavailable [phone] Reason for Visit * Auth/Cert (Routine) Specialty Diagnoses / Procedures Referred By Erik [email or web address] Referred To Contact Diagnoses FIFTH METATARSAL FRACTURE Procedures OPEN REDUCTION INTERNAL FIXATION FIFTH METATARSAL FRACTURE LEFT FOOT Antwan Stone DPM [address] [place] [address] Phone: tel: fax: Referral ID Status Reason Start Date Expiration Date Visits Re quested Visits Authorized [id number] 1 1 Encounter Details Date Type Department Care Team (Late st Contact Info) Description 01/28/2023 7:30 AM SENIOR ENVIRONMENTAL TECHNICIAN - 01/28/2023 9:09 AM SENIOR ENVIRONMENTAL TECHNICIAN Surgery [facility] OR [address] [facility] [place] [address] Antwan Stone DPM [address] [place], [place] [address] OPEN REDUCTION INTERNAL FIXATION FIFTH METATARSAL FRACTURE [...] Comments Blood Pressure 151/91 01/28/2023 9:00 AM SENIOR ENVIRONMENTAL TECHNICIAN Pulse 71 01/28/2023 9:00 AM SENIOR ENVIRONMENTAL TECHNICIAN Temperature 36.6 ??C (97.9 ??F) 01/28/2023 9:[address] Respiratory Rate 17 01/28/2023 9:00 AM SENIOR ENVIRONMENTAL TECHNICIAN Oxygen Saturation 95% 01/28/2023 9:00 AM SENIOR ENVIRONMENTAL TECHNICIAN Inhaled Oxygen Concentration - - Weight 162.7 kg (358 lb 11 oz) 01/28/2023 6:24 A M SENIOR ENVIRONMENTAL TECHNICIAN Height - - Body Mass Index 44.83 12/23/2022 11:15 AM CDT documented in this encounter Discharge Instructions * Discharge Instructions* Florence Estrada RN - 01/28/2023 9:12 AM SENIOR ENVIRONMENTAL TECHNICIAN Because you had anesthesia NO DRIVING FOR [...] questions or concerns, please call your surgeon. OR ENVIRONMENTAL TECHNICIAN * Attachments The following attachments cannot be sent through Care Everywhere. * Open Reduction and Internal Fixation Surgery Discharge Instructions (Omani) * General Anesthesia Discharge Instructions (Omani) documented in this encounter Medications at Time [...] mouth daily. vitamin D3, cholecalciferol, 1.25 MG (77901 UT) capsule Take 1 capsule (50,000 Units [...] 3 oxyCODONE-acetaminop hen (PERCOCET) 5-325 MG tabletIndications:Ac [place] Pain < 7 Day Supply Take 1-2 [...] total) by mouth daily. 30 tablet 2 Ascvigbmgjr-Zajqhdcrt-Djszee (TRELEGY ELLIPTA) 100-62.5-25 MCG/ACT AEROSOL POWDER, BREATH [...] mouth daily. vitamin D3, cholecalciferol, 1.25 MG (06067 UT) capsule Take 1 capsule (50,000 Units [...] with surgical treatment today. ANTWAN STONE DPM OR ENVIRONMENTAL TECHNICIAN documented in this encounter Nursing Notes * Cong Marks RN - 01/28/2023 7:55 AM CST 0755 - Updated Faith, on procedure start. 0818 -Updated on procedure finishing. OR ENVIRONMENTAL TECHNICIAN documented in this encounter OR Notes * [...] was filled with [facility] augment and Wilson V toss bone grafting. Next following standard [...] any problemsor concerns arise. ANTWAN STONE DPM OR ENVIRONMENTAL TECHNICIAN * OR PreOp - Shanelle Avila CNP - 01/22/2023 9:20 AM CST Chart reviewed. Per phone interview, patient denies any SOB/CP with 2 FOS or recent changes in activity tolerance in past 6 months. Patient sees jewel inserter Dr. Mccloud and previous cardiac testing copied. [...] axis deviation, partial right bundle branch block. OR ENVIRONMENTAL TECHNICIAN * OR PreOp - Joyce Glover RN - 01/21/2023 3:21 PM CST PATIENT CAN CLIMB 2 FLIGHTS OF STAIRS WITHOUT CP OR EXTREME SOB. yes ACTIVITY TOLERANCE IS THE SAME 6 MONTHS AGO. yes DENIES CARDIAC TESTING. Dr Mccloud is Admissions Nurse AVERAGE BLOOD PRESSURE? Good since starting Chlorthalidone Vaccinated against covid-19. Had virus in past. OR ENVIRONMENTAL TECHNICIAN documented in this encounter Plan of Treatment Upcoming Encounters Date Type Department Care Team (Late st Contact Info) Description 03/28/2024 7:30 AM SENIOR ENVIRONMENTAL TECHNICIAN Hospital Encounter [facility] [place] [address] Antwan Stone DPM [address] [place] [address] 03/28/2024 7:30 AM SENIOR ENVIRONMENTAL TECHNICIAN Anesthesia Event [facility] [place] [address] Shanelle Avila CNP [address] [place] [address] 03/28/2024 7:30 AM SENIOR ENVIRONMENTAL TECHNICIAN - 03/28/2024 8:48 AM SENIOR ENVIRONMENTAL TECHNICIAN [facility] [place] [address] Antwan Stone DPM [address] [place] [address] REMOVAL OF HARDWARE LEFT FOOT 04/05/2024 8:30 AM SENIOR ENVIRONMENTAL TECHNICIAN Office Visit [facility] j[facility] THREE [facility], [place] [address] [place] [address] Dominick Mccloud MD Three [facility]. [place] [address] [place] [address] Scheduled Procedures Name Priority Associated Diagnoses Date/Ti me REMOVAL PLATE SCREW OR PIN SCHED BY FAX 02/08/24 [facility] PHONE ASSESS 03/28/2024 7:30 AM SENIOR ENVIRONMENTAL TECHNICIAN documented as of this encounter Procedures Procedure Name Priority Date/Time Associated Diagnosis Comments SURG XR FOOT LT 2V Routine 01/28/2023 8:46 AM SENIOR ENVIRONMENTAL TECHNICIAN OPEN REDUCTION INTERNAL FIXATION FOOT/METATARSAL 01/28/2023 7:28 AM SENIOR ENVIRONMENTAL TECHNICIAN FIFTH METATARSAL FRACTURE Case Notes SCHED BY FAX ON 01/21/23 JDK PHONE ASSESS Special Needs RIVKA HOOK PLATE, VITOSS documented in this encounter Results * SURG XR FOOT LT 2V (01/28/2023 8:46 AM SENIOR ENVIRONMENTAL TECHNICIAN) Anatomical Region Laterality Modality Foot Radiographic Trang ging 01/28/2023 12:4 7 PM SENIOR ENVIRONMENTAL TECHNICIAN Impressions 01/28/2023 12:47 PM SENIOR ENVIRONMENTAL TECHNICIAN Impression: No radiologic interpretation will be issued. ??The report and documentation of this exam will reside in the patient's permanent medical record and in the attending physician's procedure note. Ordered By: ANTWAN STONE Interpreted By: Ruben Mahoney MD, 01/28/2023 12:47 PM Narrative 01/28/2023 12:47 PM SENIOR ENVIRONMENTAL TECHNICIAN FLUOROSCOPY CONTROL ONLY Procedure Note Ruben Mahoney [...] at 0822, Intra-Op Given 01/28/2023 7:38 AM SENIOR ENVIRONMENTAL TECHNICIAN 20 mLs Operative Site famotidine (PF) (PEPCID) injection 20 mg 20 mg, Intravenous, Once, 1 dose, On Thu01/28/23 at 0645, On admission IV Push over 2 minutes, Pre-Op Given 01/28/2023 6:47 AM SENIOR ENVIRONMENTAL TECHNICIAN 20 mg HYDROmorphone (DILAUDID) injection 0.2 mg [...] dosing interval., PACU Given 01/28/2023 8:35 AM SENIOR ENVIRONMENTAL TECHNICIAN 0.2 mg Given 01/28/2023 8:30 AM SENIOR ENVIRONMENTAL TECHNICIAN 0.2 mg lactated ringers infusion at 10 mL/hr, Intravenous, Continuous, Starting on Thu01/28/23 at 0645, Until Thu01/28/23 at 1234, Infuse at TKO rate, Pre-Op New Bag 01/28/2023 7:28 AM SENIOR ENVIRONMENTAL TECHNICIAN metoclopramide (REGLAN) injection 10 mg 10 mg, Intravenous, Once, 1 dose, On Thu01/28/23 at 0645, On admission, Pre-Op Given 01/28/2023 6:47 AM SENIOR ENVIRONMENTAL TECHNICIAN 10 mg oxyCODONE immediate release (ROXICODONE) tablet 5 mg 5 mg, Oral, Once as needed, Other, Mild pain (Scale 1 - 3), 1 dose, Starting on Thu01/28/23 at 0817, Until Thu01/28/23 at 0845, Do not administer if patient is overly sedated, SpO2 LESS than 90%, or Respiratory Rate LESS than 12., PACU Given 01/28/2023 8:45 AM SENIOR ENVIRONMENTAL TECHNICIAN 5 mg documented in this encounter Active and Recently Administered Medications Times are shown in SENIOR ENVIRONMENTAL TECHNICIAN. Scheduled Medication Order 01/26/2023 01/27/2023 01/28/2023 ceFAZolin (ANCEF) 3 g in sodium chloride 0.9 % 100 mL IVPB (COMPLETED) 3 g, Intravenous, at 200 mL/hr, call center supervisor to O.R., 1 dose, First dose on [...] documented as of this encounter Care Teams Computator Relationship Specialty Start Date End Date Clara Stanley APNP [address] [place] [address] [id number] PCP - General NURSE PRACTITIONER 06/01/18 Dominick Mccloud MD [address] [place] [address] [facility] Admissions Nurse CARDIOVASCULAR DISEASE 03/28/19 Alexis Lopez MD 4600 [facility] [address] [address] PULMONARY DISEASE 10/21/19 documented as of this encounter
--- OUTSIDE RECORDS SUMMARY | 2024-03-02 04:00 | XMS_ITS | Encounter Summary ---
Author Organization [facility] Address [address] [place] [address]. [place], [place] [address] [place] [address] Care Team Providers Care Cementing Machine Operator Name Role Phone Clara Stanley Primary Care Provider [phone] Dominick Mccloud MD Unavailable [phone] Alexis Lopez MD Unavailable [phone] Encounter Details Date Type Department Care Team [...] Coronavirus/COVID-19? No / Unsure 04/01/2022 8:46 AM ANALYTICAL RESEARCH CHEMIST documented as of this encounter Plan of Treatment Upcoming Encounters Date Type Department Care Team (Late st Contact Info) Description 03/28/2024 7:30 AM ANALYTICAL RESEARCH CHEMIST Hospital Encounter [facility] [place] [address] Antwan Stone, DIEGO [address], [place] [address] 03/28/2024 7:30 AM ANALYTICAL RESEARCH CHEMIST Anesthesia Event [place] [address] Shanelle Avila, BRUSHER MACHINE [address] [place] [address] 03/28/2024 7:30 AM ANALYTICAL RESEARCH CHEMIST - 03/28/2024 8:48 AM ANALYTICAL RESEARCH CHEMIST [place] [address] Antwan Stone, DIEGO [address], [place] [address] REMOVAL OF HARDWARE LEFT FOOT 04/05/2024 8:30 AM ANALYTICAL RESEARCH CHEMIST Office Visit [facility] THREE [facility] [address] [place] [address] Dominick Mccloud MD Three [facility]. [facility] [address] [place] [address] Scheduled Procedures Name Priority Associated Diagnoses Date/Ti me REMOVAL PLATE SCREW OR PIN SCHED BY FAX 02/08/24 JUANITOS PHONE ASSESS 03/28/2024 7:30 AM ANALYTICAL RESEARCH CHEMIST documented as of this encounter Visit Diagnoses Not on filedocumented in this encounter Additional Health Concerns Assessment Noted Time PHQ-9 Depression Total Score: 0 10/26/19 22 11:07 AM CDT documented as of this encounter Care Teams Cementing Machine Operator Relationship Specialty Start Date End Date Clara Stanley APNP [address] [place] [address] PCP - General NURSE PRACTITIONER 06/01/18 Dominick Mccloud MD [facility] [address] [place] [address] Hillside Truck Driver Supervisor CARDIOVASCULAR DISEASE 03/28/19 Alexis Lopez MD 4600 [facility] [address] [address] PULMONARY DISEASE 10/21/19 documented as of this encounter
--- OUTSIDE RECORDS SUMMARY | 2024-03-02 04:00 | XMS_ITS | Encounter Summary ---
Author Organization [facility] Address [address] [place] [address]. [place], [place] [address] [place] [address] Care Team Providers Care Conditioner Tender Name Role Phone Clara Stanley Primary Care Provider [phone] Dominick Mccloud MD Unavailable [phone] Alexis Lopez MD Unavailable [phone] Encounter Details Date Type Department Care Team (Latest Contact Info) Description 09/19/2022 Scan [email or web address] INFO SRVCS Scanned, Doc Med Group Social [...] st Contact Info) Description 03/28/2024 7:30 AM [facility] Hospital Encounter [facility] [place] [address] Antwan Stone DPM [address], [place] [address] 03/28/2024 7:30 AM OIL ANALYST Anesthesia Event [facility] [place] [address] Shanelle Avila, FITTER PLACER [address] [place] [address] 03/28/2024 7:30 AM OIL ANALYST - 03/28/2024 8:48 AM OIL ANALYST Surgery [facility] [place] [place] [address] Antwan Stone, DIEGO [address], [place] [address] REMOVAL OF HARDWARE LEFT FOOT 04/05/2024 8:30 AM OIL ANALYST Office Visit [facility] THREE [facility], [facility] [address] [place] [address] Dominick Mccloud MD Three [facility]. [facility] [address] [place] [address] Scheduled Procedures Name Priority Associated Diagnoses Date/Ti me REMOVAL PLATE SCREW OR PIN SCHED BY FAX 02/08/24 [facility] PHONE ASSESS 03/28/2024 7:30 AM OIL ANALYST documented as of this encounter Visit Diagnoses Not on filedocumented in this encounter Additional Health Concerns Assessment Noted Time PHQ-9 Depression Total Score: 0 10/26/19 22 11:07 AM CDT documented as of this encounter Care Teams Conditioner Tender Relationship Specialty Start Date End Date Clara Stanley APNP [address] [place] [address] PCP - General NURSE PRACTITIONER 06/01/18 Dominick Mccloud MD [facility]. [facility] [address] [place] [address] [facility] Specialist CARDIOVASCULAR DISEASE 03/28/19 Alexis Lopez MD 46[address] [facility] [address] [place] [address] PULMONARY DISEASE 10/21/19 documented as of this encounter
--- OUTSIDE RECORDS SUMMARY | 2024-03-02 04:00 | XMS_ITS | Encounter Summary ---
Author Organization [facility] Address [address] [place] [address]. [place], [place] [address] [place] [address] Care Team Providers Care Ditching Machine Operating Engineer Name Role Phone Lizeth Clara CARRINGTON Primary Care Provider [phone] Dominick Mccloud MD Unavailable [phone] Alexis Lopez MD Unavailable [phone] Reason for Visit * Imaging (Routine) - Closed Specialty Diagnoses / Procedures Referred By Contac t Referred To Contact RADIOLOGY Diagnoses PEARCE (dyspnea on exertion) Procedures USE ECHOCARDIOGRAM W CON USE ECHOCARDIOGRAM Dominick Mccloud MD Three [address] [address] Phone: tel: fax: Referral ID Status Reason Start Date Expiration Date Visits Re quested Visits Authorized [id number] Closed 03/04/2022 04/18/2022 1 1 Encounter Details Date Type Department Care Team (Late st Contact Info) Description 03/18/2022 8:26 AM [facility] - 03/18/2022 11:59 PM [facility] Hospital Encounter [facility] ONE [facility] [place], [place] [phone] Dominick Mccloud MD Three [address] [phone] Discharge Disposition: Home or Self Care (Routine [...] Coronavirus/COVID-19? No / Unsure 03/18/2022 8:25 AM OLIVE GROWER documented as of this encounter Medications at [...] mouth daily. vitamin D3, cholecalciferol, 1.25 MG (56526 UT) capsule Take 1 capsule (50,000 Units [...] 7:30 AM [facility] Hospital Encounter [facility] [place] [place] [address] Antwan Stone DPM [address], [place] [address] 03/28/2024 7:30 AM OLIVE GROWER Anesthesia [place] [address] Shanelle Avila, DESIGN CENTER CONSULTANT [address] [place] [address] 03/28/2024 7:30 AM OLIVE GROWER - 03/28/2024 8:48 AM [address] [place] [address] Antwan Stone DPM [address] [place] [address] REMOVAL OF HARDWARE LEFT FOOT 04/05/2024 8:30 AM OLIVE GROWER Office Visit [facility]-O'F allon THREE [facility], [address] [address] Domincik Mccloud MD Three [facility]. [place] [address] [place] [address] Scheduled Procedures Name Priority Associated Diagnoses Date/Ti me REMOVAL PLATE SCREW OR PIN SCHED BY FAX 02/08/24 [facility] PHONE ASSESS 03/28/2024 7:30 AM OLIVE GROWER documented as of this encounter Procedures Procedure Name Priority Date/Time Associated Diagnosis Comments USE ECHOCARDIOGRAM W CON Routine 03/18/2022 9:21 AM OLIVE GROWER PEARCE (dyspnea on exertion) documented in this encounter Results * USE ECHOCARDIOGRAM W CON (03/18/2022 9:21 AM OLIVE GROWER) Anatomical Region Laterality Modality NA Echocardiogram 03/18/2022 8:3 7 AM OLIVE GROWER Narrative 03/19/2022 10:29 PM OLIVE GROWER ?Echocardiography Report Pat.Name: ??MP BULLOCK.ID: ?[id number] ? St.Date: ?? 03/18/2022 ? Refer.: ??[id number] STEVEN Knox ? EWDPROV ?EWDPROV Exam Time: [...] ? Right Ventricle ??38.4 mm ?? Major Sandoval ?99.7 mm ?MMODE Ratios ?? LA/Ao ?1.2 ?(0.87-1.1)* Aorta ?? Ao Rt ?3.5 cm ?? (2-3.7) Left Atrium ?? LAIDs ?4.2 cm ? TA ?? Tricuspid Annul ??22.9 mm ? <Electronic Signature> 03/19/2022 10:29 PM Dominick Mccloud M.D. Procedure Note Marge Bansal MD - 03/19/2022 Echocardiography Report Pat.Name: MP BULLOCK Sage.ID: [id number] St.Date: 03/18/2022 Refer.: [id number] STEVEN Knox EWDPROV EWDPROV Exam Time: 8:37:00 AM Study Type:ECHO WITH CARDIAC DOPPLER COMP Height: 75 in Weight: 360 lb BSA: 2.82 m2 Age: 2 1965,56Y Sex: M BP: 139/65 HR: 84 bpm Sonogrphr: Katrina Almaraz [facility] [[email or web address]] Pat. Stat.:Outpatient Reason for Study:Dyspnea on exertion [...] 39.4 mm Right Ventricle 38.4 mm Major Sandoval 99.7 mm MMODE Ratios LA/Ao 1.2 (0.87-1.1)* [...] mL saline flush. Given 03/18/2022 9:25 AM OLIVE GROWER 2 mLs documented in this encounter Additional Health Concerns Assessment Noted Time PHQ-9 Depression Total Score: 0 10/26/19 22 11:07 AM CDT documented as of this encounter Care Teams Ditching Machine Operating Engineer Relationship Specialty Start Date End Date Claar Stanley APNP [address] [place] [address] PCP - General NURSE PRACTITIONER 06/01/18 Dominick Mccloud MD [facility] [address] [place] [address] Gatzke Marketing Systems Manager CARDIOVASCULAR DISEASE 03/28/19 Alexis Lopez MD [address] [address] PULMONARY DISEASE 10/21/19 documented as of this encounter
--- OUTSIDE RECORDS SUMMARY | 2024-03-02 04:00 | XMS_ITS | Encounter Summary ---
Author Organization [facility] Address [address] [place] [address]. [place] [address] [place] [address] Care Team Providers Care Wind Turbine Mechanical Engineer Name Role Phone Clara Stanley Primary Care Provider [phone] Dominick Mccloud MD Unavailable [phone] Alexis Lopez MD Unavailable [phone] Reason for Visit * Reason Comments Hypertension 6 month follow up Encounter Details Date Type Department Care Team (Late st Contact Info) Description 09/29/2022 8:45 AM CDT Office Visit [place] [facility] THREE [facility], [facility] [address] [place], [place] [phone] Earnestine Perry, TJ Three [facility] [address] [place], [place] [phone] Hypertension (6 month follow up) Social History [...] block. 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 He has no history of tobacco use, [...] at bedtime. , Disp: , Rfl: ??? Novtomrgoic-Kojlxajly-Jwlufw (TRELEGY ELLIPTA) 100-62.5-25 MCG/ACT AEROSOL POWDER, BREATH [...] Rfl: ??? vitamin D3, cholecalciferol, 1.25 MG (80290 UT) capsule, Take 50,000 Units by mouth [...] 7:30 AM [facility] Hospital Encounter [facility] [place] [place] [address] Antwan Stone, DIEGO [address], [place] [address] 03/28/2024 7:30 AM COMPUTER VIDEO GAME DESIGNER Anesthesia [place] [address] Shanelle Avila, MANAGER NUCLEAR [address] [place] [address] 03/28/2024 7:30 AM COMPUTER VIDEO GAME DESIGNER - 03/28/2024 8:48 AM COMPUTER VIDEO GAME DESIGNER Surgery [place] [address] Antwan Stone, DIEGO [address], [place] [address] REMOVAL OF HARDWARE LEFT FOOT 04/05/2024 8:30 AM COMPUTER VIDEO GAME DESIGNER Office Visit Darren Chaudhari-O'F lonnie THREE [facility], [address] [address] Dominick Mccloud MD [facility] [address] [place] [address] Scheduled Procedures Name Priority Associated Diagnoses Date/Ti me REMOVAL PLATE SCREW OR PIN SCHED BY FAX 02/08/24 [facility] PHONE ASSESS 03/28/2024 7:30 AM COMPUTER VIDEO GAME DESIGNER documented as of this encounter Visit Diagnoses Diagnosis Hypertension, benign- Primary Essential hypertension, benign PEARCE (dyspnea on exertion) Other dyspnea and respiratory abnormality Pure hypercholesterolemia Painful orthopaedic hardware (CMS/HCC)- Primary documented in this encounter Additional Health Concerns Assessment Noted Time PHQ-9 Depression Total Score: 0 10/26/19 22 11:07 AM CDT documented as of this encounter Care Teams Wind Turbine Mechanical Engineer Relationship Specialty Start Date End Date Clara Stanley APNP [address] [place] [address] PCP - General NURSE PRACTITIONER 06/01/18 Dominick Mccloud MD [facility]. [facility] [address] [place] [address] [place] Rip/Mould Operator CARDIOVASCULAR DISEASE 03/28/19 Alexis Lopez MD [address]00 [facility] [address] [place] [address] PULMONARY DISEASE 10/21/19 documented as of this encounter
--- OUTSIDE RECORDS SUMMARY | 2024-03-02 04:00 | XMS_ITS | Encounter Summary ---
Author Organization [facility] Address [address] [place] [address]. [place], [place] [address] [place] [address] Care Team Providers Care Iv Rn Name Role Phone Clara Stanley Primary Care Provider [phone] Dominick Mccloud MD Unavailable [phone] Alexis Lopez MD Unavailable [phone] Encounter Details Date Type Department Care Team [...] st Contact Info) Description 03/28/2024 7:30 AM [facility] Hospital Encounter [facility] [place] [address] Antwan Stone DPM [address], [place] [address] 03/28/2024 7:30 AM EXPEDITIONARY FORCE COMBAT SKILLS Anesthesia Event [facility] [place] [address] Shanelle Avila, NITROGLYCERIN DISTRIBUTOR [address] [place] [address] 03/28/2024 7:30 AM EXPEDITIONARY FORCE COMBAT SKILLS - 03/28/2024 8:48 AM EXPEDITIONARY FORCE COMBAT SKILLS Surgery [facility] [place] [address] Antwan Stone DPM [address], [place] [address] REMOVAL OF HARDWARE LEFT FOOT 04/05/2024 8:30 AM EXPEDITIONARY FORCE COMBAT SKILLS Office Visit [facility] THREE [facility] [address] [place], [place] [address] Dominick Mccloud MD Three [facility]. [facility] [address] [place], [place] [address] Scheduled Procedures Name Priority Associated Diagnoses Date/Ti me REMOVAL PLATE SCREW OR PIN SCHED BY FAX 02/08/24 [facility] PHONE ASSESS 03/28/2024 7:30 AM EXPEDITIONARY FORCE COMBAT SKILLS documented as of this encounter Visit Diagnoses Not on filedocumented in this encounter Care Teams Iv Rn Relationship Specialty Start Date End Date Clara Stanley APNP [address] [place] [address] PCP - General NURSE PRACTITIONER 06/01/18 Dominick Mccloud MD [facility]. [facility] [address] [place] [address] Fely Verification Specialist CARDIOVASCULAR DISEASE 03/28/19 Alexis Lopez MD [address] [facility] [address] [address] [place] [address] PULMONARY DISEASE 10/21/19 documented as of this encounter
--- OUTSIDE RECORDS SUMMARY | 2024-03-02 04:00 | XMS_ITS | Encounter Summary ---
Author Organization [facility] Address [address] [place] [address]. [place], [place] [address] [place] [address] Care Team Providers Care Pit Shovel Operator Name Role Phone Clara Stanley Primary Care Provider [phone] Dominick Mccloud MD Unavailable [phone] Alexis Lopez MD Unavailable [phone] Reason for Visit * Reason Comments CT [...] st Contact Info) Description 03/28/2024 7:30 AM [facility] Hospital Encounter [facility] [place] [address] Antwan Stone, DIEGO [address], [place] [address] 03/28/2024 7:30 AM BOILER/CHILLER TECHNICIAN Anesthesia [place] [address] Shanelle Avila, RAEANN [address] [place] [address] 03/28/2024 7:30 AM BOILER/CHILLER TECHNICIAN - 03/28/2024 8:48 AM BOILER/CHILLER TECHNICIAN Surgery [facility] [address] Antwan cruz, DIEGO [address] [place] [address] REMOVAL OF HARDWARE LEFT FOOT 04/05/2024 8:30 AM BOILER/CHILLER TECHNICIAN Office Visit Darren Chaudhari-O'F allon THREE [facility], [facility] [address] [place] [address] Dominick Mccloud MD Three [facility]. [facility] [address] [place] [address] Scheduled Procedures Name Priority Associated Diagnoses Date/Ti me REMOVAL PLATE SCREW OR PIN SCHED BY FAX 02/08/24 KAYLIE PHONE ASSESS 03/28/2024 7:30 AM BOILER/CHILLER TECHNICIAN documented as of this encounter Procedures [...] Total Score: 4 03/28/19 21 1:42 PM BOILER/CHILLER TECHNICIAN documented as of this encounter Care Teams Pit Shovel Operator Relationship Specialty Start Date End Date Clara Stanley APNP [address] [place] [address] PCP - General NURSE PRACTITIONER 06/01/18 Dominick Mccloud MD [address] [place] [address] [place] Youth Care Professional CARDIOVASCULAR DISEASE 03/28/19 Alexis Lopez MD 4600 [facility] [address] [place] [address] PULMONARY DISEASE 10/21/19 documented as of this encounter
--- OUTSIDE RECORDS SUMMARY | 2024-03-02 04:00 | XMS_ITS | Encounter Summary ---
Author Organization [facility] Address [address] [place] [address]. [place], [place] [address] [place] [address] Care Team Providers Care Insulation Board Coater Operator Name Role Phone Clara Stanley Primary Care Provider [phone] Dominick Mccloud MD Unavailable [phone] Alexis Lopez MD Unavailable [phone] Reason for Visit * Reason Comments Hypertension Hyperlipidemia Encounter Details Date Type Department Care Team (Latest Contact Info) Description 03/28/2020 12:40 PM TURNER SPLITTER 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 Office Visit [facility] Medical Group Family & Internal Medicine [place] [address] [place] [address] Clara Stanley APNP [address] [place] [address] Hypertension; Hyperlipidemia Social History Tobacco [...] COVID-19? No / Unsure 03/28/2020 11:13 AM TURNER SPLITTER 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 documented as of this encounter Last Filed Vital Signs Vital Sign Reading Time Taken Comments Blood Pressure 122/70 03/28/2020 1:43 PM TURNER SPLITTER 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 recheck after visit. Pulse 79 03/28/2020 12:38 PM TURNER SPLITTER 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 Temperature 36.9 ??C (98.4 ??F) 03/28/2020 1 2:38 PM TURNER SPLITTER 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 Respiratory Rate 16 03/28/2020 12:3 8 PM TURNER SPLITTER 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 Oxygen Saturation 99% 03/28/2020 12: 38 PM TURNER SPLITTER 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 Inhaled Oxygen Concentration - - Weight 153.3 kg (338 lb) 03/28/2020 12: 38 PM TURNER SPLITTER 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 Height 190.5 cm (6' 3 ) 03/28/2020 12:3 8 PM TURNER SPLITTER 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 Body Mass Index 42.25 03/28/2020 12:38 PM TURNER SPLITTER 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 documented in this encounter Progress Notes * ZEB Nunn - 03/28/2020 12:40 PM CST Images from the original note were not included. [facility] FAMILY AND INTERNAL MEDICINE OFFICE VISIT Reason [...] difficulty tolerating. This was prescribed per his shut off worker. He has followed back up with his [...] and is currently seeing a neuroophthalmologist at [facility]. He was instructed to stop taking the [...] Rfl: ??? vitamin D3, cholecalciferol, 1.25 MG (11443 UT) capsule, Take 50,000 Units by mouth weekly., Disp: , Rfl: Allergies: No Known Allergies Medical History: Past Medical History: Diagnosis Date ??? 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 Asthma ??? BMI 40.0-44.9, adult ([facility]) 03/28/2020 ??? Depression with anxiety 12/12/2014 ??? GERD (gastroesophageal reflux disease) ??? 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 Hyperlipidemia 02/21/2015 ??? Hypertension, benign 01/15/2017 ??? IIH (idiopathic intracranial hypertension) ??? Morbid obesity ([facility]) 02/21/2015 ??? Non-small cell carcinoma of lung ([facility]/HCC) s/p right lobectomy ??? Obesity ??? [...] file Gets together: Not on file Attends latter day service: Not on file Active member of [...] hypertension 2. Need for immunization against influenza [42000] FLU VACC QUAD 6 MONTHS+ 0.5 ML [...] 1. Need for immunization against influenza - [43518] FLU VACC QUAD 6 MONTHS+ 0.5 ML [...] carcinoma (CMS/HCC) Follow up with surgeon and shut off worker. 7. Insomnia, unspecified type - traZODone 50 [...] TO CULTURE ??? COMPREHENSIVE METABOLIC PANEL ??? [15480] FLU VACC QUAD 6 MONTHS+ 0.5 ML (SINGLE DOSE SYRINGE FLUZONE, FLUARIX, FLULAVAL OR SINGLE DOSE VIAL FLUZONE) ??? albuterol sulfate HFA (PROAIR HFA) 108 (90 Base) MCG/ACT inhaler ??? traZODone 50 MG tablet Cannot display discharge medications since this is not an admission. PCP: ZEB Nunn 03/30/2020 ER SPLITTER 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 documented in this encounter Plan of Treatment Upcoming Encounters Date Type Department Care Team (Late st Contact Info) Description 03/28/2024 7:30 AM TURNER SPLITTER 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 Hospital Encounter [facility] [place] [address] Antwan Stone DPM [address], [place] [address] 03/28/2024 7:30 AM TURNER SPLITTER 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 Anesthesia [place] [address] Shanelle Avila, STROKE BELT SANDER OPERATOR [address] [place] [address] 03/28/2024 7:30 AM TURNER SPLITTER 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 - 03/28/2024 8:48 AM TURNER SPLITTER 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 Surgery [place] [address] Antwan Stone DPM [address] [place], [place] [address] REMOVAL OF HARDWARE LEFT FOOT 04/05/2024 8:30 AM TURNER SPLITTER 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 Office Visit Darren Chaudhari-O'F allon THREE [address] [address] Dominick Mccloud MD [facility] [address] [place], [place] [address] Scheduled Procedures Name Priority Associated Diagnoses Date/Ti me REMOVAL PLATE SCREW OR PIN SCHED BY FAX 02/08/24 KHS PHONE ASSESS 03/28/2024 7:30 AM TURNER SPLITTER 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 documented as of this encounter [...] Total Score: 4 03/28/19 21 1:42 PM TURNER SPLITTER 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 documented as of this encounter Care Teams Insulation Board Coater Operator Relationship Specialty Start Date End Date Clara Stanley APNP [address] [place] [address] PCP - General NURSE PRACTITIONER 06/01/18 Dominick Mccloud MD [facility] [address] [place] [address] [place] Programmer CARDIOVASCULAR DISEASE 03/28/19 Alexis Lopez MD [address] [facility] [address] [place] [address] [place] [address] PULMONARY DISEASE 10/21/19 documented as of this encounter
--- OUTSIDE RECORDS SUMMARY | 2024-03-02 04:00 | XMS_ITS | Encounter Summary ---
Author Organization [facility] Address [address] [place] [address]. [place], [place] [address] [place] [address] Care Team Providers Care Jig Fitter Name Role Phone Clara Stanley Primary Care Provider [phone] Dominick Mccloud MD Unavailable [phone] Alexis Lopez MD Unavailable [phone] Reason for Referral * Consultation (Routine) - Closed Specialty Diagnoses / Procedures Referred By Erik [email or web address] Referred To Contact GASTROENTEROLOGY Diagnoses Colon cancer screening Clara Stanley APNP [address] [place] [address] Phone: tel: fax: [facility] GASTROENTEROLOGY [address] [place] [address] Phone: tel: fax: Referral ID Status Reason Start Date Expiration Date Visits Re quested Visits Authorized [id number] Closed 10/08/2021 11/08/2022 100 100 Scheduling Instructions Pt has an appt the first week in October. They are wanting [facility] P[facility] office. Reason for Visit * Reason Onset Date Comments Referral 10/07/2021 Encounter Details Date Type Department Care Team (Late st Contact Info) Description 10/07/2021 Telephone [facility] Medical Group Family & Internal Medicine [facility] [address] [place] [address] Clara Stanley, ZEB [address] [place] [address] Referral Social History Tobacco Use Types Packs/Day [...] st Contact Info) Description 03/28/2024 7:30 AM [email or web address] Hospital Encounter [facility] [place] [address] Antwan Stone DPM [address], [place] [address] 03/28/2024 7:30 AM SALES CLOSER Anesthesia [place] [address] Shanelle Avila, AWNING HANGER SUPERVISOR 1 [place] [address] 03/28/2024 7:30 AM SALES CLOSER - 03/28/2024 8:48 AM SALES CLOSER Surgery [facility] [place] [address] Antwan Stone DPM [address] [place] [address] REMOVAL OF HARDWARE LEFT FOOT 04/05/2024 8:30 AM SALES CLOSER Office Visit Darren Cardiovascular-O'F allon THREE [facility], [facility] [address] [place] [address] Dominick Mccloud MD Three [facility]. [facility] [address] [place] [address] Scheduled Procedures Name Priority Associated Diagnoses Date/Ti me REMOVAL PLATE SCREW OR PIN SCHED BY FAX 02/08/24 KHS PHONE ASSESS 03/28/2024 7:30 AM SALES CLOSER Scheduled Referrals Name Type Priority Associated Diagnoses [...] Total Score: 4 03/28/19 21 1:42 PM SALES CLOSER documented as of this encounter Care Teams Jig Fitter Relationship Specialty Start Date End Date Clara Stanley APNP [address] [place] [address] PCP - General NURSE PRACTITIONER 06/01/18 Dominick Mccloud MD [address] [address] [place] Swimming Coach CARDIOVASCULAR DISEASE 03/28/19 Alexis Lopez MD [address] [address] PULMONARY DISEASE 10/21/19 documented as of this encounter
--- OUTSIDE RECORDS SUMMARY | 2024-03-02 04:00 | XMS_ITS | Encounter Summary ---
Author Organization [facility] Address [address] [place] [address]. [place], [place] [address] [place] [address] Care Team Providers Care Picture Frames Inspector Name Role Phone Clara Stanley Primary Care Provider [phone] Dominick Mccloud MD Unavailable [phone] Alexis Lopez MD Unavailable [phone] Encounter Details Date Type Department Care Team [...] Coronavirus/COVID-19? No / Unsure 02/12/2022 9:06 AM INTERNET SPECIALIST documented as of this encounter Plan of Treatment Upcoming Encounters Date Type Department Care Team (Late st Contact Info) Description 03/28/2024 7:30 AM INTERNET SPECIALIST Hospital Encounter [facility] [place] [place] [address] Antwan Stone, DPM [address], [place] [address] 03/28/2024 7:30 AM INTERNET SPECIALIST Anesthesia [place] [address] Shanelle Avila CNP [address] [place] [address] 03/28/2024 7:30 AM INTERNET SPECIALIST - 03/28/2024 8:48 AM INTERNET SPECIALIST Surgery [place] [address] Antwan Stone, DIEGO [address], [place] [address] REMOVAL OF HARDWARE LEFT FOOT 04/05/2024 8:30 AM INTERNET SPECIALIST Office Visit Darren Cardiovascular-O'F allon THREE [facility], [facility] [address] [place] [address] Domniick Mccloud MD Three [facility]. [facility] [address] [place] [address] Scheduled Procedures Name Priority Associated Diagnoses Date/Ti me REMOVAL PLATE SCREW OR PIN SCHED BY FAX 02/08/24 JUANITOS PHONE ASSESS 03/28/2024 7:30 AM INTERNET SPECIALIST documented as of this encounter Visit Diagnoses Not on filedocumented in this encounter Additional Health Concerns Assessment Noted Time PHQ-9 Depression Total Score: 0 10/26/19 22 11:07 AM CDT documented as of this encounter Care Teams Picture Frames Inspector Relationship Specialty Start Date End Date Clara Stanley APNP [facility]1 [place] [address] PCP - General NURSE PRACTITIONER 06/01/18 Dominick Mccloud MD [facility] [address] [place] [address] [place] Script Manager CARDIOVASCULAR DISEASE 03/28/19 Alexis Lopez MD 4600 [facility] [address] [address] PULMONARY DISEASE 10/21/19 documented as of this encounter
--- OUTSIDE RECORDS SUMMARY | 2024-03-02 04:00 | XMS_ITS | Encounter Summary ---
Author Organization [facility] Address [address] [place] [address]. [place], [place] [address] [place] [address] Care Team Providers Care Commercial Loan Processor Name Role Phone Clara Stanley Primary Care Provider [phone] Dominick Mccloud MD Unavailable [phone] Alexis Lopez MD Unavailable [phone] Encounter Details Date Type Department Care Team [...] Coronavirus/COVID-19? No / Unsure 03/11/2022 10:14 AM AUDIOVISUAL TECHNICIAN documented as of this encounter Plan of Treatment Upcoming Encounters Date Type Department Care Team (Late st Contact Info) Description 03/28/2024 7:30 AM AUDIOVISUAL TECHNICIAN Hospital Encounter [facility] [place] [address] Antwan Stone, DIEGO [address] [place], [place] [address] 03/28/2024 7:30 AM AUDIOVISUAL TECHNICIAN Anesthesia [place] [address] Shanelle Avila, TICKET AGENT 1 [place] [address] 03/28/2024 7:30 AM AUDIOVISUAL TECHNICIAN - 03/28/2024 8:48 AM AUDIOVISUAL TECHNICIAN Surgery [place] [address] Antwan Stone, DIEGO [address], [place] [address] REMOVAL OF HARDWARE LEFT FOOT 04/05/2024 8:30 AM AUDIOVISUAL TECHNICIAN Office Visit Darren Chaudhari-O'F allon THREE [facility], [facility] [address] [place] [address] Dominick Mccloud MD Three [facility]. [facility] [address] [place] [address] Scheduled Procedures Name Priority Associated Diagnoses Date/Ti me REMOVAL PLATE SCREW OR PIN SCHED BY FAX 02/08/24 JUANITOS PHONE ASSESS 03/28/2024 7:30 AM AUDIOVISUAL TECHNICIAN documented as of this encounter Visit Diagnoses Not on filedocumented in this encounter Additional Health Concerns Assessment Noted Time PHQ-9 Depression Total Score: 0 10/26/19 22 11:07 AM CDT documented as of this encounter Care Teams Commercial Loan Processor Relationship Specialty Start Date End Date Clara Stanley APNP [address] [place] [address] PCP - General NURSE PRACTITIONER 06/01/[address] [facility] [address] [place] [address] [place] Shipyard Laborer CARDIOVASCULAR DISEASE 03/28/19 Alexis Lopez MD [address] [facility] [address] [address] PULMONARY DISEASE 10/21/19 documented as of this encounter
--- OUTSIDE RECORDS SUMMARY | 2024-03-02 04:00 | XMS_ITS | Encounter Summary ---
Author Organization [facility] Address [address] [place] [address]. [place], [place] [address] [place] [address] Care Team Providers Care Take Down Inspector Name Role Phone Clara Stanley Primary Care Provider [phone] Dominick Mccloud MD Unavailable [phone] Alexis Lopez MD Unavailable [phone] Encounter Details Date Type Department Care Team [...] Coronavirus/COVID-19? No / Unsure 03/18/2022 8:25 AM HYDROGEN POWER PLANT MANAGER documented as of this encounter Plan of Treatment Upcoming Encounters Date Type Department Care Team (Late st Contact Info) Description 03/28/2024 7:30 AM HYDROGEN POWER PLANT MANAGER Hospital Encounter [facility] [place] [address] Antwan Stone, DIEGO [address], [place] [address] 03/28/2024 7:30 AM HYDROGEN POWER PLANT MANAGER Anesthesia [place] [address] Shanelle Avila, SPINNER OPERATOR 1 [place] [address] 03/28/2024 7:30 AM HYDROGEN POWER PLANT MANAGER - 03/28/2024 8:48 AM HYDROGEN POWER PLANT MANAGER [place] [address] Antwan Stone, DIEGO [address], [place] [address] REMOVAL OF HARDWARE LEFT FOOT 04/05/2024 8:30 AM HYDROGEN POWER PLANT MANAGER Office Visit Darren Chaudhari-O'F allon THREE [facility], [facility] [address] [place] [address] Dominick Mccloud MD Three [facility]. [facility] [address] [place] [address] Scheduled Procedures Name Priority Associated Diagnoses Date/Ti me REMOVAL PLATE SCREW OR PIN SCHED BY FAX 02/08/24 JUANITOS PHONE ASSESS 03/28/2024 7:30 AM HYDROGEN POWER PLANT MANAGER documented as of this encounter Visit Diagnoses Not on filedocumented in this encounter Additional Health Concerns Assessment Noted Time PHQ-9 Depression Total Score: 0 10/26/19 22 11:07 AM CDT documented as of this encounter Care Teams Take Down Inspector Relationship Specialty Start Date End Date Clara Stanley APNP [address] [place] [address] PCP - General NURSE PRACTITIONER 06/01/18 Dominick Mccloud MD [facility] [address] [place] [address] [place] Software Reliability Engineer CARDIOVASCULAR DISEASE 03/28/19 Alexis Lopez MD 4600 [facility] [address] [address] PULMONARY DISEASE 10/21/19 documented as of this encounter
--- OUTSIDE RECORDS SUMMARY | 2024-03-02 04:00 | XMS_ITS | Encounter Summary ---
Author Organization [facility] Address [address] [place] [address]. [place], [place] [address] [place] [address] Care Team Providers Care Edi Coordinator Name Role Phone Clara Stanley Primary Care Provider [phone] Dominick Mccloud MD Unavailable [phone] Alexis Lopez MD Unavailable [phone] Encounter Details Date Type Department Care Team (Latest Contact Info) Description 08/30/2022 Scan [employer] INFO SRVCS Scanned, Doc Med Group Social [...] Description 03/28/2024 7:30 AM [facility] Hospital Encounter [facility] [place] [address] Antwan Stone DPM [address] [place], [place] [address] 03/28/2024 7:30 AM ATOMIZER ASSEMBLER Anesthesia Event [facility] [place] [address] Shanelle Avila, EXCELLENCE COACH [address] [place] [address] 03/28/2024 7:30 AM ATOMIZER ASSEMBLER - 03/28/2024 8:48 AM ATOMIZER ASSEMBLER Surgery [facility] [place] [address] Antwan Stone, DIEGO [address] [place], [place] [address] REMOVAL OF HARDWARE LEFT FOOT 04/05/2024 8:30 AM ATOMIZER ASSEMBLER Office Visit [facility] Chaudhari-O'F allon THREE [facility], [facility] [address] [place] [address] Dominick Mccloud MD Three [facility]. [facility] [address] [place] [address] Scheduled Procedures Name Priority Associated Diagnoses Date/Ti me REMOVAL PLATE SCREW OR PIN SCHED BY FAX 02/08/24 KHS PHONE ASSESS 03/28/2024 7:30 AM ATOMIZER ASSEMBLER documented as of this encounter Visit Diagnoses Not on filedocumented in this encounter Additional Health Concerns Assessment Noted Time PHQ-9 Depression Total Score: 0 10/26/19 22 11:07 AM CDT documented as of this encounter Care Teams Edi Coordinator Relationship Specialty Start Date End Date Clara Stanley APNP [address] [place] [address] PCP - General NURSE PRACTITIONER 06/01/18 Dominick Mccloud MD [facility]. [facility] [address] [place] [address] [place] Line Closer CARDIOVASCULAR DISEASE 03/28/19 Alexis Lopez MD 4600 [facility] [address] [place] [address] PULMONARY DISEASE 10/21/19 documented as of this encounter
--- OUTSIDE RECORDS SUMMARY | 2024-03-02 04:00 | XMS_ITS | Encounter Summary ---
Author Organization [facility] Address [address] [place] [address]. [place] [address] [place] [address] Care Team Providers Care Quarter Backer Name Role Phone Clara Stanley Primary Care Provider Dominick Mccloud MD Unavailable [phone] Alexis Lopez MD Unavailable [phone] Kip Del Rio MD Unavailable [phone] Encounter Details Date Type Department Care Team (Late st Contact Info) Description 10/13/2022 Suda Message Enc [facility] Cardiovascular-O'Garcia llon THREE [facility], [facility] [address] [place] [address] Dominick Mccloud MD [facility]. [facility] [address] [place] [address] [place] Prescription Social History Tobacco [...] st Contact Info) Description 03/28/2024 7:30 AM RECEIVING TELLER Hospital Encounter [facility] [address] Antwan Stone DPM [address], [place] [address] 03/28/2024 7:30 AM RECEIVING TELLER Anesthesia [place] [address] Shanelle Avila, CASINO CASHIER 1 [place] [address] 03/28/2024 7:30 AM RECEIVING TELLER - 03/28/2024 8:48 AM RECEIVING TELLER Surgery [place] [address] Antwan Stone DPM [address], [place] [address] REMOVAL OF HARDWARE LEFT FOOT 04/05/2024 8:30 AM RECEIVING TELLER Office Visit Darren Cardiovascular-O'F allon THREE [facility], [facility] [address] [place], [place] [address] Dominick Mccloud MD Three [facility]. [facility] [address] [place], [place] [address] Scheduled Procedures Name Priority Associated Diagnoses Date/Ti me REMOVAL PLATE SCREW OR PIN SCHED BY FAX 02/08/24 KHS PHONE ASSESS 03/28/2024 7:30 AM RECEIVING TELLER documented as of this encounter Visit Diagnoses Not on filedocumented in this encounter Additional Health Concerns Assessment Noted Time PHQ-9 Depression Total Score: 0 10/26/19 22 11:07 AM CDT documented as of this encounter Care Teams Quarter Backer Relationship Specialty Start Date End Date Clara Stnaley APNP [address] [place] [address] PCP - General NURSE PRACTITIONER 06/01/18 Dominick Mccloud MD Three [facility]. [facility] [address] [place], [place] [address] [place] Signal Worker CARDIOVASCULAR DISEASE 03/28/19 Alexis Lopez MD 4600 [facility] [address] [address] PULMONARY DISEASE 10/21/19 Kip Del Rio MD [address] [facility] [address] [place] [address] MEDICAL ONCOLOGY 02/24/24 documented as of this encounter
--- OUTSIDE RECORDS SUMMARY | 2024-03-02 04:00 | XMS_ITS | Encounter Summary ---
Author Organization [facility] Address [address] [place] [address]. [place], [place] [address] [place] [address] Care Team Providers Care Supervisor Channel Process Name Role Phone Clara Stanley Primary Care Provider +[phone] Dominick Mccloud MD Unavailable [phone] Alexis Lopez MD Unavailable [phone] Encounter Details Date Type Department Care Team [...] 03/28/2024 7:30 AM [facility] Hospital Encounter [facility] [place] [address] Antwan Stone DPM [address], [place] [address] 03/28/2024 7:30 AM BEHAVIORAL HEALTH RN Anesthesia Event [facility] [place] [address] Shanelle Avila, PULVERIZING AND SIFTING OPERATOR [address] [place], [place] [address] 03/28/2024 7:30 AM BEHAVIORAL HEALTH RN - 03/28/2024 8:48 AM BEHAVIORAL HEALTH RN Surgery [facility] [place] [address] Antwan Stone, DPM [address], [place], [place] [address] REMOVAL OF HARDWARE LEFT FOOT 04/05/2024 8:30 AM BEHAVIORAL HEALTH RN Office Visit Darren Chaudhari-O'F allon THREE [facility], [facility] [address] [place], [place] [address] Dominick Mccloud MD Three [facility]. [facility] [address] [place], [place] [address] Scheduled Procedures Name Priority Associated Diagnoses Date/Ti me REMOVAL PLATE SCREW OR PIN SCHED BY FAX 02/08/24 [facility] PHONE ASSESS 03/28/2024 7:30 AM BEHAVIORAL HEALTH RN documented as of this encounter Visit Diagnoses Not on filedocumented in this encounter Additional Health Concerns Assessment Noted Time PHQ-9 Depression Total Score: 0 10/26/19 22 11:07 AM CDT documented as of this encounter Care Teams Supervisor Channel Process Relationship Specialty Start Date End Date Clara Stanley APNP [address] [place] [address] PCP - General NURSE PRACTITIONER 06/01/18 Dominick Mccloud MD Three [facility]. [facility] [address] [place] [address] [place] It Applications Developer CARDIOVASCULAR DISEASE 03/28/19 Alexis Lopez MD [address] [facility] [address] [place] [address] PULMONARY DISEASE 10/21/19 documented as of this encounter
--- OUTSIDE RECORDS SUMMARY | 2024-03-02 04:00 | XMS_ITS | Encounter Summary ---
Author Organization [facility] Address [address] [place] [address]. [place] [address] [place] [address] Care Team Providers Care Marketing Planning Manager Name Role Phone Clara Stanley Primary Care Provider [phone] Dominick Mccloud MD Unavailable [phone] Alexis Lopez MD Unavailable [phone] Reason for Visit * Reason Onset Date Comments Results 03/27/2022 Encounter Details Date Type Department Care Team (Late st Contact Info) Description 03/27/2022 [place] [address] Cammie Avila, RN Results Social History Tobacco [...] Coronavirus/COVID-19? No / Unsure 03/24/2022 10:37 AM NON ACOUSTIC OPERATOR documented as of this encounter Progress Notes * Cammie Avila RN - 03/27/2022 9:11 AM CST Patient informed of the response and v/u. Patient had no further questions. ACOUSTIC OPERATOR * Cammie Avila RN - 03/27/2022 8:45 AM CST ----- Message from Dominick Mccloud MD sent at 03/26/2022 7:51 PM NON ACOUSTIC OPERATOR ----- Echo and stress test normal, no cause for PEARCE. Defer to pulm and will monitor for worsening symptoms. ACOUSTIC OPERATOR documented in this encounter Plan of Treatment Upcoming Encounters Date Type Department Care Team (Late st Contact Info) Description 03/28/2024 7:30 AM NON ACOUSTIC OPERATOR Hospital Encounter [facility] [place] [address] Antwan Stone DPM [address], [facility] [address] [place], [place] [address] 03/28/2024 7:30 AM NON ACOUSTIC OPERATOR Anesthesia Event [facility] [place] [address] Shanelle Avila, CAFETERIA OR LUNCHROOM CHECKER [address] [place] [address] 03/28/2024 7:30 AM NON ACOUSTIC OPERATOR - 03/28/2024 8:48 AM NON ACOUSTIC OPERATOR Surgery [facility] [place], [place] [address] Antwan Stone DPM [address], [facility] [place] [address] REMOVAL OF HARDWARE LEFT FOOT 04/05/2024 8:30 AM NON ACOUSTIC OPERATOR Office Visit Darren Cardiovascular-Omar'F lonnie THREE [facility], [facility] [address] [place] [address] Dominick Mccloud MD [facility]. [facility] [address] [place] [address] Scheduled Procedures Name Priority Associated Diagnoses Date/Ti me REMOVAL PLATE SCREW OR PIN SCHED BY FAX 02/08/24 [facility] PHONE ASSESS 03/28/2024 7:30 AM NON ACOUSTIC OPERATOR documented as of this encounter Visit Diagnoses Not on filedocumented in this encounter Additional Health Concerns Assessment Noted Time PHQ-9 Depression Total Score: 0 10/26/19 22 11:07 AM CDT documented as of this encounter Care Teams Marketing Planning Manager Relationship Specialty Start Date End Date Clara Stanley APNP [address] [place] [address] PCP - General NURSE PRACTITIONER 06/01/18 Dominick Mccloud MD [facility]. [facility] [address] [place] [address] [place] [employer] Maintenance Technician CARDIOVASCULAR DISEASE 03/28/19 Alexis Lopez MD [address] [facility] [address] [address] PULMONARY DISEASE 10/21/19 documented as of this encounter
--- OUTSIDE RECORDS SUMMARY | 2024-03-02 04:00 | XMS_ITS | Encounter Summary ---
Author Organization [facility] Address [address] [place] [address]. [place], [place] [address] [place] [address] Care Team Providers Care Gifted Program Teacher Name Role Phone Clara Stanley Primary Care Provider [phone] Dominick Mccloud MD Unavailable [phone] Alexis Lopez MD Unavailable [phone] Reason for Visit * Reason Onset Date Comments Results 10/29/2021 Encounter Details Date Type Department Care Team (Late st Contact Info) Description 10/29/2021 Telephone [facility] Medical Group Family & Internal Medicine [facility] [address] [place] [address] Clara Stanley APNP [address] [place] [address] Results Social History Tobacco Use [...] st Contact Info) Description 03/28/2024 7:30 AM VALET ATTENDANT Hospital Encounter [facility] [place] [address] Antwan Stone, DPM [address], [place] [address] 03/28/2024 7:30 AM VALET ATTENDANT Anesthesia Event [place] [address] Shanelle Avila, RAEANN [address] [place] [address] 03/28/2024 7:30 AM VALET ATTENDANT - 03/28/2024 8:48 AM VALET ATTENDANT Surgery [place] [address] Antwan Stone, TEJASM [address], [place] [address] REMOVAL OF HARDWARE LEFT FOOT 04/05/2024 8:30 AM VALET ATTENDANT Office Visit Darren Chaudhari-O'F allon THREE [facility], [facility] [address] [place] [address] Dominick Mccloud MD Three [facility]. [facility] [address] [place] [address] Scheduled Procedures Name Priority Associated Diagnoses Date/Ti me REMOVAL PLATE SCREW OR PIN SCHED BY FAX 02/08/24 KAYLIE PHONE ASSESS 03/28/2024 7:30 AM VALET ATTENDANT documented as of this encounter Visit Diagnoses Not on filedocumented in this encounter Additional Health Concerns Assessment Noted Time PHQ-9 Depression Total Score: 0 10/26/19 22 11:07 AM CDT documented as of this encounter Care Teams Gifted Program Teacher Relationship Specialty Start Date End Date Clara Stanley APNP [facility]1 [place] [address] PCP - General NURSE PRACTITIONER 06/01/18 Dominick Mccloud MD Three [facility] [address] [place] [address] Bailey Marketing Manager Health Communications CARDIOVASCULAR DISEASE 03/28/19 Alexis Lopez MD [address] [facility] [address] [address] PULMONARY DISEASE 10/21/19 documented as of this encounter
--- OUTSIDE RECORDS SUMMARY | 2024-03-02 04:00 | XMS_ITS | Encounter Summary ---
Author Organization [facility] Address [address] [place] [address]. [place], [place] [address] [place] [address] Care Team Providers Care Provider Engagement Executive Name Role Phone Clara Stanley Primary Care Provider [phone] Dominick Mccloud MD Unavailable [phone] Alexis Lopez MD Unavailable [phone] Encounter Details Date Type Department Care Team (Latest Contact Info) Description 09/11/2021 Scan [employer] INFO SRVCS Scanned, Documents Social History Tobacco [...] Contact Info) Description 03/28/2024 7:30 AM [facility] Hospital Encounter [facility] [place] [address] Antwan Stone, DPÁngel [address] [place], [place] [address] 03/28/2024 7:30 AM WINDER CONTORT OPERATOR Anesthesia Event [facility] [place] [place] [address] Shanelle Avila, RAEANN [address] [place] [address] 03/28/2024 7:30 AM WINDER CONTORT OPERATOR - 03/28/2024 8:48 AM WINDER CONTORT OPERATOR Surgery [facility] [place] [place] [address] Antwan Stone, DIEGO [address] [place] [address] REMOVAL OF HARDWARE LEFT FOOT 04/05/2024 8:30 AM WINDER CONTORT OPERATOR Office Visit [place]isela Chaudhari-O'F allon THREE [facility], [facility] [address] [place] [address] Dominick Mccloud MD Three [facility]. [facility] [address] [place] [address] Scheduled Procedures Name Priority Associated Diagnoses Date/Ti me REMOVAL PLATE SCREW OR PIN SCHED BY FAX 02/08/24 [facility] PHONE ASSESS 03/28/2024 7:30 AM WINDER CONTORT OPERATOR documented as of this encounter Visit Diagnoses Not on filedocumented in this encounter Additional Health Concerns Assessment Noted Time PHQ-9 Depression Total Score: 4 03/28/19 21 1:42 PM WINDER CONTORT OPERATOR documented as of this encounter Care Teams Provider Engagement Executive Relationship Specialty Start Date End Date Clara Stanley APNP [address] [place] [address] PCP - General NURSE PRACTITIONER 06/01/18 Dominick Mccloud MD [facility]. [facility] [address] [place] [address] [employer] Analytics Head CARDIOVASCULAR DISEASE 03/28/19 Alexis Lopez MD [address] [facility] [address] [place] [address] PULMONARY DISEASE 10/21/19 documented as of this encounter
--- OUTSIDE RECORDS SUMMARY | 2024-03-02 04:00 | XMS_ITS | Encounter Summary ---
Author Organization [facility] Address [address] [place] [address]. [place], [place] [address] [place] [address] Care Team Providers Care Driver License Agent Name Role Phone Clara Stanley Primary Care Provider [phone] Dominick Mccloud MD Unavailable [phone] Alexis Lopez MD Unavailable [phone] Encounter Details Date Type Department Care Team (Latest Contact Info) Description 07/07/2021 Scan [employer] INFO SRVCS Scanned, Documents Social History Tobacco [...] st Contact Info) Description 03/28/2024 7:30 AM [facility] Hospital Encounter [facility] [place] [address] Antwan Stone, DPÁngel [address] [place], [place] [address] 03/28/2024 7:30 AM ROTARY CUTTER Anesthesia Event [facility] [address] Shanelle Avila, RAEANN [address] [place] [address] 03/28/2024 7:30 AM ROTARY CUTTER - 03/28/2024 8:48 AM ROTARY CUTTER Surgery [facility] [place] [address] Antwan Stone, DIEGO [address] [place] [address] REMOVAL OF HARDWARE LEFT FOOT 04/05/2024 8:30 AM ROTARY CUTTER Office Visit [place]tu[place]ela Chuadhari-O'F allon THREE [facility], [facility] [address] [place] [address] Dominick Mccloud MD Three [facility]. [facility] [address] [place] [address] Scheduled Procedures Name Priority Associated Diagnoses Date/Ti me REMOVAL PLATE SCREW OR PIN SCHED BY FAX 02/08/24 [facility] PHONE ASSESS 03/28/2024 7:30 AM ROTARY CUTTER documented as of this encounter Visit Diagnoses Not on filedocumented in this encounter Additional Health Concerns Assessment Noted Time PHQ-9 Depression Total Score: 4 03/28/19 21 1:42 PM ROTARY CUTTER documented as of this encounter Care Teams Driver License Agent Relationship Specialty Start Date End Date Clara Stanley APNP [address] [place] [address] PCP - General NURSE PRACTITIONER 06/01/18 Dominick Mccloud MD [facility]. [facility] [address] [place] [address] [employer] Tile Machine Operator CARDIOVASCULAR DISEASE 03/28/19 Alexis Lopez MD [address] [facility] [address] [place] [address] PULMONARY DISEASE 10/21/19 documented as of this encounter
--- OUTSIDE RECORDS SUMMARY | 2024-03-02 04:00 | XMS_ITS | Encounter Summary ---
Author Organization [facility] Address [address] [place] [address]. [place], [place] [address] [place] [address] Care Team Providers Care Environmental Protection Forester Name Role Phone Clara Stanley Primary Care Provider [phone] Dominick Mccloud MD Unavailable [phone] Alexis Lopez MD Unavailable [phone] Reason for Visit * Auth/Cert Specialty Diagnoses / Procedures Referred By Erik [email or web address] Referred To Contact Diagnoses Personal hx of polyps Procedures COLONOSCOPY Referral ID Status Reason Start Date Expiration Date Visits Re quested Visits Authorized [id number] 1 1 Encounter Details Date Type Department Care Team (Late st Contact Info) Description 03/21/2022 7:00 AM CUSTOMS COMPLIANCE SPECIALIST - 03/21/2022 7:30 AM CUSTOMS COMPLIANCE SPECIALIST Surgery [facility] [place] [address] Lisa Medina, #[address] [facility] [address] [place] [address] COLONOSCOPY Surgery Details Date/Time Status Location OR Service Patient Class Case Class Case Type Trauma Case? 03/21/2022 7:00 AM Posted [facility] 3 [facility] - Elective No Panel [...] Coronavirus/COVID-19? No / Unsure 03/21/2022 6:06 AM CUSTOMS COMPLIANCE SPECIALIST documented as of this encounter Last Filed Vital Signs Vital Sign Reading Time Taken Comments Blood Pressure 129/83 03/21/2022 7:25 AM CUSTOMS COMPLIANCE SPECIALIST Pulse 81 03/21/2022 7:25 AM CUSTOMS COMPLIANCE SPECIALIST Temperature 36.4 ??C (97.6 ??F) 03/21/2022 7:15 AM CS T Respiratory Rate 11 03/21/2022 7:25 AM CUSTOMS COMPLIANCE SPECIALIST Oxygen Saturation 93% 03/21/2022 7:25 AM CUSTOMS COMPLIANCE SPECIALIST Inhaled Oxygen Concentration - - Weight 163.3 kg (360 lb) 03/11/2022 10:20 AM CUSTOMS COMPLIANCE SPECIALIST Height 190.5 cm (6' 3 ) 03/11/2022 10:20 AM CUSTOMS COMPLIANCE SPECIALIST Body Mass Index 45 03/11/2022 10:20 AM CUSTOMS COMPLIANCE SPECIALIST documented in this encounter Discharge Instructions * Discharge Instructions* Amelie Johnson RN - 03/21/2022 7:26 AM CUSTOMS COMPLIANCE SPECIALIST Recommendations: Fiber. Follow-up with primary as needed. Recheck colonoscopy 5 years due to history of multiple colon polyps. OMS COMPLIANCE SPECIALIST * Attachments The following attachments cannot be sent through Care Everywhere. * Colonoscopy Discharge Instructions (Uruguayan) * General Anesthesia Discharge Instructions (Uruguayan) documented in this encounter Medications at Time [...] mouth daily. vitamin D3, cholecalciferol, 1.25 MG (72112 UT) capsule Take 1 capsule (50,000 Units [...] were discussed with the patient and/or family/personal hostess party sales representative. Questions were answered and the patient/family/personal hostess party sales representative verbalized understanding and desires to proceed. Previous Adverse Experience with Sedation, Analgesia, or Anesthesia? No ASA Classification: 3 Mallampati: 2 NPO: after midnight Planned Sedation/Analgesic Agent(s): Moderate Sedation Versed/Fentanyl Planned Procedure(s): Colonoscopy. Signed: LISA MEDINA MD OMS COMPLIANCE SPECIALIST documented in this encounter H&P Notes * [...] File Prior to Encounter Medication Sig ??? Xtpyqkgytfp-Gqhndivai-Thdwkz (TRELEGY ELLIPTA) 100-62.5-25 MCG/ACT AEROSOL POWDER, BREATH [...] daily. ??? vitamin D3, cholecalciferol, 1.25 MG (87829 UT) capsule Take 50,000 Units by mouth [...] hesitate to contact me. Lisa Medina DO OMS COMPLIANCE SPECIALIST documented in this encounter OR Notes * [...] explained in detail to the patient/power of claims attorney. These were understood, assumed and written consent was obtained. The risk and complications include, but are not limited to, hemorrhage, perforation, infection, blood transfusion surgery, and missed lesions. Anesthesia risks were explained by the department of anesthesiology. These include, but are not limited to, allergic reactions, cardiopulmonary arrest, heart attack, stoke, and infection. All question were answered and understood. Lisa Medina DO OMS COMPLIANCE SPECIALIST documented in this encounter Plan of Treatment Upcoming Encounters Date Type Department Care Team (Late st Contact Info) Description 03/28/2024 7:30 AM CUSTOMS COMPLIANCE SPECIALIST Hospital Encounter [facility] [place] [place] [address] Antwan Stone, DIEGO [address], [place] [address] 03/28/2024 7:30 AM CUSTOMS COMPLIANCE SPECIALIST Anesthesia [place] [address] Shanelle Avila, RAEANN [address] [place] [address] 03/28/2024 7:30 AM CUSTOMS COMPLIANCE SPECIALIST - 03/28/2024 8:48 AM CUSTOMS COMPLIANCE SPECIALIST Surgery [place] [address] Antwan Stone, DIEGO [address], [place] [address] REMOVAL OF HARDWARE LEFT FOOT 04/05/2024 8:30 AM CUSTOMS COMPLIANCE SPECIALIST Office Visit Darren Cardiovascular-O'F allon THREE [facility], [facility] [address] [place] [address] Dominick Mccloud MD Three [facility]. [facility] [address] [place] [address] Scheduled Procedures Name Priority Associated Diagnoses Date/Ti me REMOVAL PLATE SCREW OR PIN SCHED BY FAX 02/08/24 [facility] PHONE ASSESS 03/28/2024 7:30 AM CUSTOMS COMPLIANCE SPECIALIST documented as of this encounter Procedures Procedure Name Priority Date/Time Associated Diagnosis Comments COLONOSCOPY Routine 03/21/2022 7:46 AM CUSTOMS COMPLIANCE SPECIALIST PROCEDURE GENERIC 03/21/2022 7:0 2 AM CUSTOMS COMPLIANCE SPECIALIST COLONOSCOPY 03/21/2022 6:47 AM CUSTOMS COMPLIANCE SPECIALIST Personal hx of polyps COLONOSCOPY Routine 03/21/2022 6:29 AM CUSTOMS COMPLIANCE SPECIALIST documented in this encounter Results * PROCEDURE GENERIC (03/21/2022 7:02 AM CUSTOMS COMPLIANCE SPECIALIST) Narrative 03/21/2022 7:02 AM CUSTOMS COMPLIANCE SPECIALIST Ordered by an unspecified provider. us Documents [...] at 0718, Intra-Op Given 03/21/2022 7:00 AM CUSTOMS COMPLIANCE SPECIALIST 50 mcg Given 03/21/2022 6:56 AM CUSTOMS COMPLIANCE SPECIALIST 50 mcg Given 03/21/2022 6:54 AM CUSTOMS COMPLIANCE SPECIALIST 50 mcg midazolam (VERSED) injection As needed, Starting on Thu03/21/22 at 0654, Until Thu03/21/22 at 0718, Intra-Op Given 03/21/2022 6:58 AM CUSTOMS COMPLIANCE SPECIALIST 2 mg Given 03/21/2022 6:56 AM CUSTOMS COMPLIANCE SPECIALIST 2 mg Given 03/21/2022 6:54 AM CUSTOMS COMPLIANCE SPECIALIST 4 mg documented in this encounter Active and Recently Administered Medications Times are shown in CUSTOMS COMPLIANCE SPECIALIST. PRN Medication Order 03/19/2022 03/20/2022 03/21/2022 [id number] [...] documented as of this encounter Care Teams Environmental Protection Forester Relationship Specialty Start Date End Date Clara Stanley APNP [address] [place] [address] PCP - General NURSE PRACTITIONER 06/01/18 Dominick Mccloud MD [facility] [address] [place] [address] [place] Gas Meter Installer CARDIOVASCULAR DISEASE 03/28/19 Alexis Lopez MD [address] [facility] [address] [address] PULMONARY DISEASE 10/21/19 documented as of this encounter
--- OUTSIDE RECORDS SUMMARY | 2024-03-02 04:00 | XMS_ITS | Encounter Summary ---
Author Organization [facility] Address [address] [place] [address]. [place], [place] [address] [place] [address] Care Team Providers Care Interventional Cardiologist Name Role Phone Clara Stanley Primary Care Provider [phone] Dominick Mccloud MD Unavailable [phone] Alexis Lopez MD Unavailable [phone] Encounter Details Date Type Department Care Team (Late st Contact Info) Description 03/28/2020 Orders Only [facility] Medical Group Family & Internal Medicine [address] [address] Estrellita Chi, NICANOR Social History [...] COVID-19? No / Unsure 03/28/2020 11:13 AM PRICING DIRECTOR documented as of this encounter Plan of Treatment Upcoming Encounters Date Type Department Care Team (Late st Contact Info) Description 03/28/2024 7:30 AM PRICING DIRECTOR Hospital En[facility] [place] [address] Antwan Stone, DIEGO [address], [place] [address] 03/28/2024 7:30 AM PRICING DIRECTOR Anesthesia [place] [address] Shanelle Avila, DIESEL POWERPLANT MECHANIC HELPER [address] [facility] [place] [address] 03/28/2024 7:30 AM PRICING DIRECTOR - 03/28/2024 8:48 AM PRICING DIRECTOR Surgery [place] [address] Antwan Stone, DIEGO [address], [place] [address] REMOVAL OF HARDWARE LEFT FOOT 04/05/2024 8:30 AM PRICING DIRECTOR Office Visit Darren Cardiovascular-O'F allon THREE [facility], [facility] [address] [place] [address] Dominick Mccloud MD Three [facility]. [facility] [address] [place] [address] Scheduled Procedures Name Priority Associated Diagnoses Date/Ti me REMOVAL PLATE SCREW OR PIN SCHED BY FAX 02/08/24 KAYLIE PHONE ASSESS 03/28/2024 7:30 AM PRICING DIRECTOR documented as of this encounter Visit Diagnoses Not on filedocumented in this encounter Additional Health Concerns Assessment Noted Time PHQ-9 Depression Total Score: 4 03/28/19 21 1:42 PM PRICING DIRECTOR documented as of this encounter Care Teams Interventional Cardiologist Relationship Specialty Start Date End Date Clara Stanley APNP [facility] [place] [address] PCP - General NURSE PRACTITIONER 06/01/18 Dominick Mccloud MD [address] [address] [place] Organ Teacher CARDIOVASCULAR DISEASE 03/28/19 Alexis Lopez MD [address] [address] PULMONARY DISEASE 10/21/19 documented as of this encounter
--- OUTSIDE RECORDS SUMMARY | 2024-03-02 04:00 | XMS_ITS | Encounter Summary ---
Author Organization [facility] Address [address] [place] [address]. [place], [place] [address] [place] [address] Care Team Providers Care Degree Clerk Name Role Phone Clara [place] Primary Care Provider [phone] Dominick Mccloud MD Unavailable [phone] Alxeis Lopez MD Unavailable [phone] Reason for Visit * Auth/Cert Specialty Diagnoses / Procedures Referred By Erik galdamez Referred To Contact Diagnoses Personal hx of polyps Procedures COLONOSCOPY Referral ID Status Reason Start Date Expiration Date Visits Re quested Visits Authorized [id number] 1 1 Encounter Details Date Type Department Care Team (Latest Contact Info) Description 03/21/2022 6:06 AM ORACLE SOA CONSULTANT - 03/21/2022 8:02 AM [facility] Hospital Encounter [facility] [place] [address] Lisa Medina, DO #[address] [facility] [address] [place] [address] Discharge Disposition: Home or Self Care (Routine [...] Coronavirus/COVID-19? No / Unsure 03/21/2022 6:06 AM ORACLE SOA CONSULTANT documented as of this encounter Last Filed Vital Signs Vital Sign Reading Time Taken Comments Blood Pressure 129/83 03/21/2022 7:25 AM ORACLE SOA CONSULTANT Pulse 81 03/21/2022 7:25 AM ORACLE SOA CONSULTANT Temperature 36.4 ??C (97.6 ??F) 03/21/2022 7:15 AM CS T Respiratory Rate 11 03/21/2022 7:25 AM ORACLE SOA CONSULTANT Oxygen Saturation 93% 03/21/2022 7:25 AM ORACLE SOA CONSULTANT Inhaled Oxygen Concentration - - Weight 163.3 kg (360 lb) 03/11/2022 10:20 AM ORACLE SOA CONSULTANT Height 190.5 cm (6' 3 ) 03/11/2022 10:20 AM ORACLE SOA CONSULTANT Body Mass Index 45 03/11/2022 10:20 AM ORACLE SOA CONSULTANT documented in this encounter Discharge Instructions * Discharge Instructions* Amelie Johnson RN - 03/21/2022 7:26 AM ORACLE SOA CONSULTANT Recommendations: Fiber. Follow-up with primary as needed. Recheck colonoscopy 5 years due to history of multiple colon polyps. LE SOA CONSULTANT * Attachments The following attachments cannot be sent through Care Everywhere. * Colonoscopy Discharge Instructions (American) * General Anesthesia Discharge Instructions (American) documented in this encounter Medications at Time [...] mouth daily. vitamin D3, cholecalciferol, 1.25 MG (47072 UT) capsule Take 1 capsule (50,000 Units [...] were discussed with the patient and/or family/personal senior patient account representative. Questions were answered and the patient/family/personal senior patient account representative verbalized understanding and desires to proceed. Previous Adverse Experience with Sedation, Analgesia, or Anesthesia? No ASA Classification: 3 Mallampati: 2 NPO: after midnight Planned Sedation/Analgesic Agent(s): Moderate Sedation Versed/Fentanyl Planned Procedure(s): Colonoscopy. Signed: LISA MEDINA MD LE SOA CONSULTANT documented in this encounter H&P Notes * [...] File Prior to Encounter Medication Sig ??? Lhwokqdyvgk-Arydfqxio-Kswdpi (TRELEGY ELLIPTA) 100-62.5-25 MCG/ACT AEROSOL POWDER, BREATH [...] daily. ??? vitamin D3, cholecalciferol, 1.25 MG (85759 UT) capsule Take 50,000 Units by mouth [...] hesitate to contact me. Lisa Medina DO LE SOA CONSULTANT documented in this encounter OR Notes * [...] in detail to the patient/power of litigation attorney associate. These were understood, assumed and written consent was obtained. The risk and complications include, but are not limited to, hemorrhage, perforation, infection, blood transfusion surgery, and missed lesions. Anesthesia risks were explained by the department of anesthesiology. These include, but are not limited to, allergic reactions, cardiopulmonary arrest, heart attack, stoke, and infection. All question were answered and understood. Lisa Medina DO LE SOA CONSULTANT documented in this encounter Plan of Treatment Upcoming Encounters Date Type Department Care Team (Late st Contact Info) Description 03/28/2024 7:30 AM ORACLE SOA CONSULTANT Hospital Encounter [facility] [place] [address] Antwan Stone DPM [address], [place] [address] 03/28/2024 7:30 AM ORACLE SOA CONSULTANT Anesthesia Event [place] [address] Shanelle Avila, PRINTING SUPPLIES SALES REPRESENTATIVE [address] [place] [address] 03/28/2024 7:30 AM ORACLE SOA CONSULTANT - 03/28/2024 8:48 AM ORACLE SOA CONSULTANT Surgery [facility] [address] Antwan Stone, DIEGO [address], [place] [address] REMOVAL OF HARDWARE LEFT FOOT 04/05/2024 8:30 AM ORACLE SOA CONSULTANT Office Visit Darren Chaudhari-O'F allon THREE [facility], [facility] [address] [place] [address] Dominick Mccloud MD Three [facility]. [facility] [address] [place] [address] Scheduled Procedures Name Priority Associated Diagnoses Date/Ti me REMOVAL PLATE SCREW OR PIN SCHED BY FAX 02/08/24 Mary PHONE ASSESS 03/28/2024 7:30 AM ORACLE SOA CONSULTANT documented as of this encounter Procedures Procedure Name Priority Date/Time Associated Diagnosis Comments COLONOSCOPY Routine 03/21/2022 7:46 AM ORACLE SOA CONSULTANT PROCEDURE GENERIC 03/21/2022 7:0 2 AM ORACLE SOA CONSULTANT COLONOSCOPY 03/21/2022 6:47 AM ORACLE SOA CONSULTANT Personal hx of polyps COLONOSCOPY Routine 03/21/2022 6:29 AM ORACLE SOA CONSULTANT documented in this encounter Results * PROCEDURE GENERIC (03/21/2022 7:02 AM ORACLE SOA CONSULTANT) Narrative 03/21/2022 7:02 AM ORACLE SOA CONSULTANT Ordered by an unspecified provider. us Documents Scanned [facility] Final Result documented in this encounter Visit Diagnoses Not on filedocumented in this encounter Active and Recently Administered Medications Times are shown in ORACLE SOA CONSULTANT. PRN Medication Order 03/19/2022 03/20/2022 03/21/2022 [id number] [...] documented as of this encounter Care Teams Degree Clerk Relationship Specialty Start Date End Date Clara [place] APNP [address] [place] [address] PCP - General NURSE PRACTITIONER 06/01/18 Dominick Mccloud MD [address] [address] [place] Certified Alcohol And Drug Counselor CARDIOVASCULAR DISEASE 03/28/19 Alexis Lopez MD [address] [place] [address] PULMONARY DISEASE 10/21/19 documented as of this encounter
--- OUTSIDE RECORDS SUMMARY | 2024-03-02 04:00 | XMS_ITS | Encounter Summary ---
Author Organization [facility] Address [address] [place] [address]. [place], [place] [address] [place] [address] Care Team Providers Care Labor Relations Director Name Role Phone Clara [place] Primary Care Provider [phone] Dominick Mccloud MD Unavailable [phone] Alexis Lopez MD Unavailable [phone] Reason for Referral * Procedure (Routine) - Closed Specialty Diagnoses / Procedures Referred By Contac t Referred To Contact Diagnoses PEARCE (dyspnea on exertion) BMI 40.0-44.9, adult ([facility]) LEONOR (obstructive sleep apnea) Snoring Lung mass Morbid obesity ([facility]) Insomnia Procedures Stress test only, exercise [facility] [place] [address] Phone: tel: Referral ID Status Reason Start Date Expiration Date Visits Re quested Visits Authorized [id number] Closed 03/24/2022 03/24/2023 1 1 PLECHASE JOCKEY * Imaging (Routine) - Closed Specialty Diagnoses / Procedures Referred By Contac t Referred To Contact RADIOLOGY Diagnoses PEARCE (dyspnea on exertion) Procedures NM EXER NUC STRESS TEST 2DAY NM EXER NUC STRESS TEST 1DAY Dominick Mccloud MD Three [facility]. [facility] [address] [place] [address] Phone: tel: fax: Referral ID Status Reason Start Date Expiration Date Visits Re quested Visits Authorized [id number] Closed 02/12/2022 05/03/2022 2 2 PLECHASE JOCKEY Reason for Visit * Imaging (Routine) - Closed Specialty Diagnoses / Procedures Referred By Contac t Referred To Contact RADIOLOGY Diagnoses PEARCE (dyspnea on exertion) Procedures NM EXER NUC STRESS TEST 2DAY NM EXER NUC STRESS TEST 1DAY Dominick Mccloud MD Three [facility]. [address] [address] Phone: tel: fax: Referral ID Status Reason Start Date Expiration Date Visits Re quested Visits Authorized [id number] Closed 02/12/2022 05/03/2022 2 2 Encounter Details Date Type Department Care Team (Late st Contact Info) Description 03/24/2022 10:30 AM STEEPLECHASE JOCKEY - 03/24/2022 11:59 PM STEEPLECHASE JOCKEY Hospital Encounter [facility] [place], [place] [address] Dominick Mccloud MD Three [address] [phone] Discharge Disposition: Home or Self Care (Routine [...] Coronavirus/COVID-19? No / Unsure 03/24/2022 10:37 AM STEEPLECHASE JOCKEY documented as of this encounter Medications at [...] mouth daily. vitamin D3, cholecalciferol, 1.25 MG (68219 UT) capsule Take 1 capsule (50,000 Units [...] st Contact Info) Description 03/28/2024 7:30 AM STEEPLECHASE JOCKEY Hospital Encounter [facility] [place] [address] Antwan Stone, DIEGO [address], [place] [address] 03/28/2024 7:30 AM STEEPLECHASE JOCKEY Anesthesia Event [place] [address] Shanelle Avila, RADIOSONDE SPECIALIST [address] [place] [address] 03/28/2024 7:30 AM STEEPLECHASE JOCKEY - 03/28/2024 8:48 AM STEEPLECHASE JOCKEY Surgery [place] [address] Antwan Stone, DIEGO [address], [place] [address] REMOVAL OF HARDWARE LEFT FOOT 04/05/2024 8:30 AM STEEPLECHASE JOCKEY Office Visit Darren Chaudhari-O'F allon THREE [facility], [facility] [address] [place] [address] Dominick Mccloud MD Three [facility]. [facility] [address] [place] [address] Scheduled Procedures Name Priority Associated Diagnoses Date/Ti me REMOVAL PLATE SCREW OR PIN SCHED BY FAX 02/08/24 KHS PHONE ASSESS 03/28/2024 7:30 AM STEEPLECHASE JOCKEY documented as of this encounter Procedures Procedure Name Priority Date/Time Associated Diagnosis Comments NM EXER NUC STRESS TEST 2DAY Routine 03/24/2022 1:46 PM STEEPLECHASE JOCKEY PEARCE (dyspnea on exertion) STRESS TEST ONLY, EXERCISE Routine 03/24/2022 10:43 AM STEEPLECHASE JOCKEY PEARCE (dyspnea on exertion) BMI 40.0-44.9, adult (CMS/HCC HHS/HCC) LEONOR (obstructive sleep apnea) Snoring Lung mass Morbid obesity (CMS/HCC HHS/HCC) Insomnia documented in this encounter Results * NM EXER NUC STRESS TEST 2DAY (03/24/2022 1:46 PM STEEPLECHASE JOCKEY) Anatomical Region Laterality Modality Cardiac Nuclear Medicine 03/24/2022 11:4 6 AM STEEPLECHASE JOCKEY Narrative 03/24/2022 1:32 PM STEEPLECHASE JOCKEY ? Myocardial Perfusion Imaging ? Pat.Name: ??MP BULLOCK.ID: ?[id number] ? St.Date: ?? 03/24/2022 ?Refer.MD: ??Les [place] ? Exam Time: 11:46:00 AM ? Study Type:GUME NC HT MUSCLE IMAGE SPECT MULTI Height: ?75 in ? Weight: ?360 lb ? BSA: ? 2.82 m2 ?Age: ??1965,56Y ? Sex: ? M ? Sonogrphr: Per Jones, INTEGRATION ENGINEER ? Pat. Stat.:Outpatient ? Reason for Study:Shortness [...] % ?Max BP: ?192/90 Max RPP: ?? 40018 ? O2 sat: ?100 % Symptoms and Complications: Terminated: Shortness of breath Symptoms: ??Shortness of breath Complications: None Stress ECG Interp: No ischemic changes <Signed> 03/24/2022 12:26 PM Dominick Mccloud M.D. Stress interpretation <Electronic Signature> 03/24/2022 01:32 PM Kamala Gomez M.D. Nuclear interpretation Procedure Note Kamala Gomez MD - 03/24/2022 Myocardial Perfusion Imaging Pat.Name: MP BULLOCK.ID: [id number] .Date: 03/24/2022 Refer.MD: Les [place] Exam Time: 11:46:00 AM Study Type:GUME IA HT MUSCLE IMAGE SPECT MULTI Height: 75 in Weight: 360 lb BSA: 2.82 m2 Age: 2 1965,56Y Sex: M Sonogrphr: Per Jones [facility] Pat. Stat.:Outpatient Reason for Study:Shortness of breath [...] 87 % Max BP: 192/90 Max RPP: 24620 O2 sat: 100 % Symptoms and Complications: [...] dyspnea and respiratory abnormality BMI 40.0-44.9, adult ([facility]) Body Mass Index 40.0-44.9, adult LEONOR (obstructive sleep apnea) Obstructive sleep apnea (adult) (pediatric) Snoring Other dyspnea and respiratory abnormality Lung mass Swelling, mass, or lump in chest Morbid obesity ([facility]/HCC) Morbid obesity Insomnia Insomnia, unspecified Painful orthopaedic hardware ([facility])- Primary documented in this encounter Administered Medications Inactive Administered Medications - up to 3 most recent administrations Medication Order MAR Action Action Date Dose Rate Site Generic Radiopharmaceutical 44.2 millicurie 44.2 millicurie, Intravenous, IMG once as needed, 44.2 mCi myoview for stress, 1 dose, Starting on Thu03/24/22 at 1346, Until Thu03/24/22 at 0900 Given 03/24/2022 9:00 AM STEEPLECHASE JOCKEY 44.2 millicuries Left Arm documented in this encounter Additional Health Concerns Assessment Noted Time PHQ-9 Depression Total Score: 0 10/26/19 22 11:07 AM CDT documented as of this encounter Care Teams Labor Relations Director Relationship Specialty Start Date End Date Clara [place] APNP [address] [place] [address] PCP - General NURSE PRACTITIONER 06/01/18 Dominick Mccloud MD [facility]. [facility] [address] [place] [address] [place] Electronic Technologist CARDIOVASCULAR DISEASE 03/28/19 Alexis Lopez MD [address] [facility] [address] [place] [address] PULMONARY DISEASE 10/21/19 documented as of this encounter
--- OUTSIDE RECORDS SUMMARY | 2024-03-02 04:00 | XMS_ITS | Encounter Summary ---
Author Organization [facility] Address [address] [place] [address]. [place], [place] [address] [place] [address] Care Team Providers Care Telephone Lineman Name Role Phone Clara [place] Primary Care Provider [phone] Dominick Mccloud MD Unavailable [phone] Alexis Lopez MD Unavailable [phone] Reason for Visit * Reason Comments Image [...] 7:30 AM [facility] Hospital Encounter [facility] [place] [address] Antwan Stone, DIEGO [address], [place] [address] 03/28/2024 7:30 AM POULTRY BUYER Anesthesia Event [facility] [place] [address] Shanelle Avila, RAILWAY SIGNALLING ENGINEER [address] [place] [address] 03/28/2024 7:30 AM POULTRY BUYER - 03/28/2024 8:48 AM POULTRY BUYER Surgery [place] [address] Antwan Stone, DIEGO [address], [place] [address] REMOVAL OF HARDWARE LEFT FOOT 04/05/2024 8:30 AM POULTRY BUYER Office Visit Sauk Fara-O'F allon THREE [facility], [facility] [address] [place] [address] Dominick Mccloud MD Three [facility]. [facility] [address] [place] [address] Scheduled Procedures Name Priority Associated Diagnoses Date/Ti me REMOVAL PLATE SCREW OR PIN SCHED BY FAX 02/08/24 JUANITOS PHONE ASSESS 03/28/2024 7:30 AM POULTRY BUYER documented as of this encounter Procedures Procedure [...] documented as of this encounter Care Teams Telephone Lineman Relationship Specialty Start Date End Date Clara [place] APNP [address] [place] [address] PCP - General NURSE PRACTITIONER 06/01/18 Dominick Mccloud MD [facility] [address] [place] [address] [place] Organic Chemistry Teacher CARDIOVASCULAR DISEASE 03/28/19 Alexis Lopez MD [address] [facility] [address] [place] [address] PULMONARY DISEASE 10/21/19 documented as of this encounter
--- OUTSIDE RECORDS SUMMARY | 2024-03-02 04:00 | XMS_ITS | Encounter Summary ---
Author Organization [facility] Address [address] [place] [address]. [place], [place] [address] [place] [address] Care Team Providers Care Organization Development Consultant Name Role Phone Clara [place] Primary Care Provider [phone] Dominick Mccloud MD Unavailable [phone] Alexis Lopez MD Unavailable [phone] Encounter Details Date Type Department Care Team [...] st Contact Info) Description 03/28/2024 7:30 AM LEAD BURNER HELPER Hospital Encounter [facility] [place] [place] [address] Antwan Stone, DIEGO [address], [place] [address] 03/28/2024 7:30 AM LEAD BURNER HELPER Anesthesia Event [facility] [address] Shanelle Avila, LIGHT RAIL SIGNAL TECHNICIAN [address] [place] [address] 03/28/2024 7:30 AM LEAD BURNER HELPER - 03/28/2024 8:48 AM LEAD BURNER HELPER Surgery [place] [address] Antwan Stone, DIEGO [address], [place] [address] REMOVAL OF HARDWARE LEFT FOOT 04/05/2024 8:30 AM LEAD BURNER HELPER Office Visit Darren Chaudhari-O'F allon THREE [facility], [facility] [address] [place] [address] Dominick Mccloud MD Three [facility]. [facility] [address] [place] [address] Scheduled Procedures Name Priority Associated Diagnoses Date/Ti me REMOVAL PLATE SCREW OR PIN SCHED BY FAX 02/08/24 KAYLIE PHONE ASSESS 03/28/2024 7:30 AM LEAD BURNER HELPER documented as of this encounter Visit Diagnoses Not on filedocumented in this encounter Additional Health Concerns Assessment Noted Time PHQ-9 Depression Total Score: 0 10/26/19 22 11:07 AM CDT documented as of this encounter Care Teams Organization Development Consultant Relationship Specialty Start Date End Date Clara [place] APNP [address] [place] [address] PCP - General NURSE PRACTITIONER 06/01/18 Dominick Mccloud MD [facility] [address] [place] [address] [place] Networking Administrator CARDIOVASCULAR DISEASE 03/28/19 Alexis Lopez MD [address] [facility] [address] [address] PULMONARY DISEASE 10/21/19 documented as of this encounter
--- OUTSIDE RECORDS SUMMARY | 2024-03-02 04:00 | XMS_ITS | Encounter Summary ---
Author Organization [facility] Address [address] [place] [address]. [place] [address] [place] [address] Care Team Providers Care Meter Changes Records Clerk Name Role Phone Clara [place] Primary Care Provider [phone] Dominick Mccloud MD Unavailable [phone] Alexis Lopez MD Unavailable [phone] Reason for Visit * Auth/Cert Specialty Diagnoses / Procedures Referred By Erik galdamez Referred To Contact Diagnoses Varicose veins of right lower extremity with pain VARICOSE VEINS OF RIGHT LOWER EXTREMITY WITH PAIN Procedures RIGHT STAB PHLEBECTOMY Referral ID Status Reason Start Date Expiration Date Visits Re quested Visits Authorized [id number] 1 1 Encounter Details Date Type Department Care Team (Late st Contact Info) Description 10/31/2019 10:42 AM CDT Anesthesia Event [facility] [place] [address] Precious Abbott MD [address] [facility] [place] [address] Greta Marcum FNP [address] [place] [address] Anesthesia Record Procedure Summary Procedure Name Responsible Anesthesiologist Anesthesia Start Time Anesthesia Stop Time RIGHT STAB PHLEBECTOMY (Right: Leg Lower) Precious Abbott MD 10/31/19 1042 10/31/19 1142 Events Date Time Event Comment 10/31/2019 0911 AN POLICE COMMANDING OFFICER Prepped 1031 1031 AN Anesthesia Prepped 1042 [...] Date: 10/31/19; Removal Time: 1132; Removal Person: POLICE COMMANDING OFFICER; Removal Reason: End of Case 10/31/19 1054 [...] st Contact Info) Description 03/28/2024 7:30 AM CAMP HEAD COUNSELOR Hospital Encounter [facility] Day [place] [id number] Antwan Stone, DIEGO [address], [place] [address] 03/28/2024 7:30 AM CAMP HEAD COUNSELOR Anesthesia Event [facility] [place] [address] Shanelle Avila, MEDICINE TECH [address] [place] [address] 03/28/2024 7:30 AM CAMP HEAD COUNSELOR - 03/28/2024 8:48 AM CAMP HEAD COUNSELOR Surgery [facility] [place] [address] Antwan Stone, DIEGO [address], [place] [address] REMOVAL OF HARDWARE LEFT FOOT 04/05/2024 8:30 AM CAMP HEAD COUNSELOR Office Visit Darren Chaudhari-O'F allon THREE [facility], [facility] [address] [place] [address] Dominick Mccloud MD Three [facility]. [facility] [address] [place] [address] Scheduled Procedures Name Priority Associated Diagnoses Date/Ti me REMOVAL PLATE SCREW OR PIN SCHED BY FAX 02/08/24 [facility] PHONE ASSESS 03/28/2024 7:30 AM CAMP HEAD COUNSELOR documented as of this encounter Visit [...] mg documented in this encounter Care Teams Meter Changes Records Clerk Relationship Specialty Start Date End Date Clara [place] APNP [address] [place] [address] PCP - General NURSE PRACTITIONER 06/01/18 Dominick Mccloud MD [facility]. [facility] [address] [place] [address] [place] Academic Affairs Coordinator CARDIOVASCULAR DISEASE 03/28/19 Alexis Lopez MD [address] [facility] [address] [place] [address] PULMONARY DISEASE 10/21/19 documented as of this encounter
--- OUTSIDE RECORDS SUMMARY | 2024-03-02 04:00 | XMS_ITS | Encounter Summary ---
Author Organization [facility] Address [address] [place] [address]. [place], [place] [address] [place] [address] Care Team Providers Care Client Insights Consultant Name Role Phone Clara [place] Primary Care Provider [phone] Dominick Mccloud MD Unavailable [phone] Alexis Lopez MD Unavailable [phone] Encounter Details Date Type Department Care Team [...] COVID-19? No / Unsure 01/23/2021 1:35 PM RATOPRINTER documented as of this encounter Plan of Treatment Upcoming Encounters Date Type Department Care Team ( Contact Info) Description 03/28/2024 7:30 AM RATOPRINTER Hospital Encounter [facility] [address] Antwan Stone, DIEGO [address], [place] [address] 03/28/2024 7:30 AM RATOPRINTER Anesthesia [facility] [place] [address] Shanelle Avila, ANCILLARY SPECIALIST [address] [place] [address] 03/28/2024 7:30 AM RATOPRINTER - 03/28/2024 8:[address] [facility] [address] Antwan Stone, DIEGO [address], [place] [address] REMOVAL OF HARDWARE LEFT FOOT 04/05/2024 8:30 AM RATOPRINTER Office Visit Darren Chaudhari-O'F allon THREE [facility], [facility] [address] [place] [address] Dominick Mccloud MD Three [facility]. [facility] [address] [place] [address] Scheduled Procedures Name Priority Associated Diagnoses Date/Ti me REMOVAL PLATE SCREW OR PIN SCHED BY FAX 02/08/24 K[facility] PHONE ASSESS 03/28/2024 7:30 AM RATOPRINTER documented as of this encounter Visit Diagnoses Not on filedocumented in this encounter Additional Health Concerns Assessment Noted Time PHQ-9 Depression Total Score: 4 03/28/19 21 1:42 PM RATOPRINTER documented as of this encounter Care Teams Client Insights Consultant Relationship Specialty Start Date End Date Clara [place] APNP [address] [place] [address] PCP - General NURSE PRACTITIONER 06/01/18 Dominick Mccloud MD [facility] [address] [place] [address] [place] Wheel And Pinion Inspector CARDIOVASCULAR DISEASE 03/28/19 Alexis Lopez MD [address] [facility] [address] [place] [address] PULMONARY DISEASE 10/21/19 documented as of this encounter
--- OUTSIDE RECORDS SUMMARY | 2024-03-02 04:00 | XMS_ITS | Encounter Summary ---
Author Organization [facility] Address [address] [place] [address]. [place], [place] [address] [place] [address] Care Team Providers Care Graphite Pan Drier Tender Name Role Phone Clara Stanley Primary Care Provider [phone] Dominick Mccloud MD Unavailable [phone] Alexis Lopez MD Unavailable [phone] Encounter Details Date Type Department Care Team [...] COVID-19? No / Unsure 01/23/2021 1:35 PM SOCIAL WORKER DELINQUENCY PREVENTION documented as of this encounter Plan of Treatment Upcoming Encounters Date Type Department Care Team ( st Contact Info) Description 03/28/2024 7:30 AM SOCIAL WORKER DELINQUENCY PREVENTION Hospital Encounter [facility] [place] [address] Antwan Stone, DIEGO [address], [place] [address] 03/28/2024 7:30 AM SOCIAL WORKER DELINQUENCY PREVENTION Anesthesia [place] [address] Shanelle Avila, KITCHEN MANAGER 1 [place] [address] 03/28/2024 7:30 AM SOCIAL WORKER DELINQUENCY PREVENTION - 03/28/2024 8:48 AM SOCIAL WORKER DELINQUENCY PREVENTION Surgery [place] [address] Antwan Stone, DIEGO [address], [place] [address] REMOVAL OF HARDWARE LEFT FOOT 04/05/2024 8:30 AM SOCIAL WORKER DELINQUENCY PREVENTION Office Visit Darren Chaudhari-O'F allon THREE [facility], [facility] [address] [place] [address] Dominick Mccloud MD Three [facility]. [facility] [address] [place] [address] Scheduled Procedures Name Priority Associated Diagnoses Date/Ti me REMOVAL PLATE SCREW OR PIN SCHED BY FAX 02/08/24 [facility] PHONE ASSESS 03/28/2024 7:30 AM SOCIAL WORKER DELINQUENCY PREVENTION documented as of this encounter Visit Diagnoses Not on filedocumented in this encounter Additional Health Concerns Assessment Noted Time PHQ-9 Depression Total Score: 4 03/28/19 21 1:42 PM SOCIAL WORKER DELINQUENCY PREVENTION documented as of this encounter Care Teams Graphite Pan Drier Tender Relationship Specialty Start Date End Date Clara Stanley APNP [address] [place] [address] PCP - General NURSE PRACTITIONER 06/01/18 Dominick Mccloud MD [facility] [address] [place] [address] [place] Sample Maker CARDIOVASCULAR DISEASE 03/28/19 Alexis Lopez MD [address] [facility] [address] [place] [address] PULMONARY DISEASE 10/21/19 documented as of this encounter
--- OUTSIDE RECORDS SUMMARY | 2024-03-02 04:00 | XMS_ITS | Encounter Summary ---
Author Organization [facility] Address [address] [place] [address]. [place], [place] [id number] [place] [address] Care Team Providers Care Relationship Management Lead Name Role Phone Clara Stanley Primary Care Provider [phone] Dominick Mccloud MD Unavailable [phone] Alexis Lopez MD Unavailable [phone] Reason for Visit * Reason Comments Hyperlipidemia Encounter Details Date Type Department Care Team (Late st Contact Info) Description 10/25/2021 10:20 AM CDT Office Visit [facility] Family & Internal Medicine [facility] [address] [place] [address] Clara Stanley APNP [address] [place], [place] [id number] Hyperlipidemia Social History Tobacco Use Types Packs/Day [...] from the original note were not included. [facility] FAMILY AND INTERNAL MEDICINE OFFICE VISIT Reason for Visit: Hyperlipidemia History of Present Illness: 56 yo male here today to follow up on his chronic health conditions. HTN - sl elevated initially. He is on amlodipine which is prescribed per his search engine optimization consultant. Tolerates his meds well with no bothersome [...] has not worsened. He does see a search engine optimization consultant once yearly and is due for a follow up. Will make appointment He has a hx of non small cell lung cancer and regularly sees a enrollment manager. He had a partial right pneumonectomy in [...] Rfl: ??? vitamin D3, cholecalciferol, 1.25 MG (46349 UT) capsule, Take 50,000 Units by mouth weekly., Disp: , Rfl: Allergies: No Known Allergies Medical History: Past Medical History: Diagnosis Date ??? 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 Asthma ??? BMI 40.0-44.9, adult ([facility]) 03/28/2020 ??? Depression with anxiety 12/12/2014 ??? GERD (gastroesophageal reflux disease) ??? 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 Hyperlipidemia 02/21/2015 ??? Hypertension, benign 01/15/2017 ??? IIH (idiopathic intracranial hypertension) ??? Morbid obesity ([facility]) 02/21/2015 ??? Non-small cell carcinoma of lung ([facility]) s/p right lobectomy ??? Obesity ??? Varicose [...] after lab results. 3. BMI 40.0-44.9, adult ([facility]) - CBC W/DIFF AUTOMATED; Future - LIPID [...] [facility] Hospital Encounter [facility] [place] [address] Antwan Stone, DIEGO [address], [place] [address] 03/28/2024 7:30 AM DENTURE MODEL MAKER Anesthesia [place] [address] Shanelle Avila, CLINICAL STATISTICAL PROGRAMMER 1 [place] [address] 03/28/2024 7:30 AM DENTURE MODEL MAKER - 03/28/2024 8:48 AM DENTURE MODEL MAKER [place] [address] Antwan Stone, DIEGO [address], [place] [address] REMOVAL OF HARDWARE LEFT FOOT 04/05/2024 8:30 AM DENTURE MODEL MAKER Office Visit Darren Fara-O'F allon THREE [facility], [facility] [address] [place] [address] Dominick Mccloud MD Three [facility]. [facility] [address] [place] [address] Scheduled Procedures Name Priority Associated Diagnoses Date/Ti me REMOVAL PLATE SCREW OR PIN SCHED BY FAX 02/08/24 [facility] PHONE ASSESS 03/28/2024 7:30 AM DENTURE MODEL MAKER documented as of this encounter Procedures Procedure Name Priority Date/Time Associated Diagnosis Comments URINALYSIS WI REFLEX TO CULTURE Routine 10/25/2021 1:49 PM CDT Hypertension, benign BMI 40.0-44.9, adult (CMS/HCC [facility]) TSH W/REFLEX Routine 10/25/2021 1:49 PM CDT [...] - 308 U/L 10/25/2021 9:45 PM CDT [facility] 10/25/2021 1:49 PM CDT us Clara ISABELNP LABORATORY Final Resul t -[facility] [place] [address] [place] [address], * COMPREHENSIVE METABOLIC PANEL (10/25/2021 1:49 PM CDT) SODIUM S/P/B 138 136 - 145 MMOL/L 10/25/2021 9:32 PM CDT -[facility] POTASSIUM S/P/B 4.4 3.5 - 5.1 MMOL/L 10/25/2021 9:32 PM CDT -[facility] CHLORIDE S/P/B 102 98 - 107 MMOL/L 10/25/2021 9:32 PM CDT -[facility] CO2 24.8 21 - 32 MMOL/L 10/25/2021 9:32 PM CDT MG-[facility] GLUCOSE 90 70 - 99 MG/DL 10/25/2021 9:32 PM CDT -[facility] BUN 14 7 - 18 MG/DL 10/25/2021 9:32 PM CDT -[facility] CREATININE S/P/B 0.73 0.70 - 1.30 MG/DL 10/25/2021 9:32 PM CDT -[facility] CALCIUM S/P/B 9.5 8.4 - 10.5 MG/DL 10/25/2021 9:32 PM CDT -[facility] BILIRUBIN TOTAL S/P/B 0.4 0.2 - 1.0 MG/DL 10/25/2021 9:32 PM CDT -[facility] ALKALINE PHOSPHATASE S/P/B 94 45 - 115 U/L 10/25/2021 9:32 PM CDT MG-[facility] AST 27 15 - 37 U/L 10/25/2021 9:32 PM CDT MG-[facility] ALT 33 16 - 63 U/L 10/25/2021 9:32 PM CDT MG-[facility] [place] [place] TOTAL PROTEIN S/P/B 7.9 6.4 - 8.2 G/DL 10/25/2021 9:32 PM CDT [facility] ALBUMIN S/P/B 4.1 3.4 - 5.0 G/DL 10/25/2021 9:32 PM CDT [facility] [place] ANION GAP 11.2 5 - 15 MMOL/L 10/25/2021 9:32 PM CDT [facility] Comment:REFERENCE RANGE NOT ESTABLISHED OSMOLALITY (CALC) 286 MOSM/KG 022 9:32 PM CDT [facility] Comment:REFERENCE RANGE NOT ESTABLISHED GFR ESTIMATE >90 >90 ML/MIN/1. 73 M2 10/25/2021 9:32 PM CDT [facility] GFR NOTES GFR REFERENCE S: 10/25/2021 9:32 PM CDT [facility] Comment: THE ESTIMATED GFR IS CALCULATED USING [...] m2 10/25/2021 1:49 PM CDT us Clara CARRINGTON LABORATORY Final Resul t [facility] [address] [facility] [address], * URIC ACID BLOOD (10/25/2021 1:49 PM CDT) URIC ACID 6.2 3.5 - 7.2 MG/DL 10/25/2021 9:32 PM CDT [facility] 10/25/2021 1:49 PM CDT Clara H Lizeth ISABEL LABORATORY Final Resul t [facility] [address] [place] [address], * (ABNORMAL) URINALYSIS WI REFLEX TO CULTURE (10/25/2021 1:49 PM CDT) COLOR (U) YELLOW 10/25/2021 7:28 PM CDT [facility] TRANSPARENCY CLEAR CLEAR 10/25/2021 7:28 PM CDT [facility] SPECIFIC GRAVITY (U) 1.015 1.003 - 1.040 10/25/2021 7:28 PM CDT [facility] U PH 6.0 5.0 - 9.0 10/25/2021 7:28 PM CDT [facility] PROTEIN (U) NEGATIVE NEGATIVE 10/25/2021 7:28 PM CDT [facility] URINE GLUCOSE NEGATIVE NEGATIVE 10/25/2021 7:28 PM CDT [facility] KETONES MG/DL (U) NEGATIVE NEGATIVE 10/25/2021 7:28 PM CDT [facility] BILIRUBIN (U) NEGATIVE NEGATIVE 10/25/2021 7:28 PM CDT [facility] BLOOD (U) NEGATIVE NEGATIVE 10/25/2021 7:28 PM CDT [facility] UROBILINOGEN 0.2 0.0 - 2.0 EU/DL 10/25/2021 7:28 PM CDT [facility] NITRITES NEGATIVE NEGATIVE 10/25/2021 7:28 PM CDT [facility] LEUKOCYTES (U) NEGATIVE NEGATIVE 10/25/2021 7:28 PM CDT [facility] REFLEX URINE CULTURE: CULTURE IS NOT INDICATED 10/25/2021 7:28 PM CDT [facility] RBC/HPF 0-3 0 - 3 /HPF 10/25/2021 7:28 PM CDT [facility] WBC/HPF 0-3 0 - 3 /HPF 10/25/2021 7:28 PM CDT [facility] EPI/HPF 0-3 /HPF 10/25/2021 7:28 PM CDT [facility] BACTERIA (U) TRACE(A) NONE SEEN 10/25/2021 7:28 PM CDT [facility] URINE SPECIMEN OBTAINED BY CLEAN CATCH PROCEDURE / Unknown 10/25/2021 1:49 PM CDT Clara CARRINGTON URINE ORDERABLES Final Resu lt Performing Organization Address [facility] Co de Phone Number [address] [address], * PROSTATE SPECIFIC ANTIGEN,SCREENING (10/25/2021 1:49 PM CDT) PSA 1.15 <4.00 NG/ML 10/25/2021 8:04 PM CDT [facility] Comment: ASSAY PERFORMED BY [employer] USING [employer]. PATIENT RESULTS DETERMINED BY ASSAYS FROM DIFFERENT MANUFACTURERS AND/OR BY DIFFERENT METHODS MAY NOT BE COMPARABLE. 10/25/2021 1:49 PM CDT us Clara CARRINGTON LABORATORY Final Resul t Performing Organization Address [facility] Co de Phone Number [facility] [address] [place] [address], * TSH W/REFLEX (10/25/2021 1:49 PM CDT) TSH 1.785 0.358 - 3.740 uIU/ML 10/25/2021 9:32 PM CDT [facility] 10/25/2021 1:49 PM CDT Clara CARRINGTON LABORATORY Final Resul t [facility] [address] [place] [address], * (ABNORMAL) LIPID PANEL (10/25/2021 1:49 PM CDT) CHOLESTEROL 219(H) <200 MG/DL 10/25/2021 9:32 PM CDT [facility] TRIGLYCERIDES 106 <150 MG/DL 10/25/2021 9:32 PM CDT [facility] HDL 54 >40 MG/DL 10/25/2021 9:32 PM CDT [facility] LDL-C 144(H) <100 MG/DL 10/25/2021 9:32 PM CDT [facility] VLDL CALCULATION 21 5 - 28 MG/DL 10/25/2021 9:32 PM CDT [facility] CHOL/HDL RATIO 4.1(H) 0.0 - 4.0 10/25/2021 9:32 PM CDT [facility] LDL/HDL 2.7(H) 0.41 - 2.13 10/25/2021 9:32 PM CDT [facility] NON HDL CHOLESTEROL 165(H) <140 MG/DL 10/25/2021 9:32 PM CDT [facility] 10/25/2021 1:49 PM CDT us Clara Jiley AP LABORATORY Final Resul t -[facility] [place] [address] [place] [address], * (ABNORMAL) CBC W/DIFF AUTOMATED (10/25/2021 1:49 PM CDT) WBC 9.2 4.0 - 10.8 x10'3/uL 10/25/2021 7:53 PM CDT -[facility] RBC 5.03 4.50 - 6.10 x10'6/uL 10/25/2021 7:53 PM CDT [facility] HGB 14.7 13.0 - 18.0 G/DL 10/25/2021 7:53 PM CDT [facility] HCT 44.8 37.0 - 52.0 % 10/25/2021 7:53 PM CDT [facility] MCV 89.1 78.0 - 100.0 FL 10/25/2021 7:53 PM CDT [facility] MCH 29.2 27.0 - 31.0 PG 10/25/2021 7:53 PM CDT [facility] MCHC 32.8(L) 33.0 - 36.0 G/DL 10/25/2021 7:53 PM CDT [facility] RDW 13.1 11.5 - 14.5 % 10/25/2021 7:53 PM CDT [facility] PLT 251 150 - 350 x10'3/uL 10/25/2021 7:53 PM CDT [facility] MPV 12.2(H) 7.4 - 10.4 FL 10/25/2021 7:53 PM CDT [facility] DIFFERENTIAL TYPE AUTOMATED DIFFERENTIAL 10/25/2021 7:53 PM CDT [facility] NEUTROPHILS % 72.3 % 10/25/2021 7:53 PM CDT [facility] LYMPHOCYTES % 13.5 % 10/25/2021 7:53 PM CDT [facility] MONOCYTES % 9.3 % 10/25/2021 7:53 PM CDT [facility] EOSINOPHILS % 4.0 % 10/25/2021 7:53 PM CDT [facility] BASOPHILS % 0.4 % 10/25/2021 7:53 PM CDT [facility] IMMATURE GRANS % 0.5 % 10/25/2021 7:53 PM CDT [facility] ABS. NEUTROPHILS 6.67 1.60 - 8.30 x10'3/uL 10/25/2021 7:53 PM CDT [facility] ABS. LYMPHOCYTES 1.25 0.80 - 4.70 x10'3/uL 10/25/2021 7:53 PM CDT [facility] ABS. MONOCYTES 0.86 0.00 - 1.50 x10'3/uL 10/25/2021 7:53 PM CDT [facility] ABS. EOSINOPHILS 0.37 0.00 - 0.40 x10'3/uL 10/25/2021 7:53 PM CDT [facility] ABS. BASOPHILS 0.04 0.00 - 0.20 x10'3/uL 10/25/2021 7:53 PM CDT [facility] ABS. IMMATURE GRANULOCYTES 0.05(H) 0.00 - 0.03 x10'3/uL 10/25/2021 7:53 PM CDT [facility] 10/25/2021 1:49 PM CDT Clara CARRINGTON LABORATORY Final Resul t [facility] [address] [place] [address] [phone] documented in this encounter Visit Diagnoses Diagnosis Hypertension, benign- Primary Essential hypertension, benign Mixed hyperlipidemia BMI 40.0-44.9, adult ([facility]) Body Mass Index 40.0-44.9, adult LEONOR (obstructive sleep apnea) Obstructive sleep apnea (adult) (pediatric) Mild intermittent asthma without complication ([facility]) Unspecified asthma Painful orthopaedic hardware ([facility])- Primary documented in this encounter Additional Health Concerns Assessment Noted Time PHQ-9 Depression Total Score: 0 10/26/19 22 11:07 AM CDT documented as of this encounter Care Teams Relationship Management Lead Relationship Specialty Start Date End Date Clara Stanley APNP [address] [place] [address] PCP - General NURSE PRACTITIONER 06/01/18 Dominick Mccloud MD [address] [address] [place] Patent Chemist CARDIOVASCULAR DISEASE 03/28/19 Alexis Lopez MD [address] [facility] [address] [address] PULMONARY DISEASE 10/21/19 documented as of this encounter
--- OUTSIDE RECORDS SUMMARY | 2024-03-02 04:00 | XMS_ITS | Encounter Summary ---
Author Organization [facility] Address [address] [place] [address]. [place], [place] [address] [place] [address] Care Team Providers Care Sewer System Supervisor Name Role Phone Clara Stanley Primary Care Provider [phone] Dominick Mccloud MD Unavailable [phone] Alexis Lopez MD Unavailable [phone] Encounter Details Date Type Department Care Team (Latest Contact Info) Description 08/08/2022 Scan PerspecSys INFO SRVCS Scanned, Doc Med Group Social [...] 7:30 AM [facility] Hospital Encounter [facility] [place] [address] Antwan Stone DPM [address], [place] [address] 03/28/2024 7:30 AM TELEHEALTH NURSE EDUCATOR Anesthesia Event [facility] [place] [address] Shanelle Avila, CONSUMER EDUCATION SPECIALIST [address] [place] [address] 03/28/2024 7:30 AM TELEHEALTH NURSE EDUCATOR - 03/28/2024 8:48 AM TELEHEALTH NURSE EDUCATOR Surgery [facility] [place] [address] Antwan Stone, DIEGO [address], [place] [address] REMOVAL OF HARDWARE LEFT FOOT 04/05/2024 8:30 AM TELEHEALTH NURSE EDUCATOR Office Visit Garlandisela Chaudhari-O'F allon THREE [facility], [facility] [address] [place] [address] Dominick Mccloud MD Three [facility]. [facility] [address] [place] [address] Scheduled Procedures Name Priority Associated Diagnoses Date/Ti me REMOVAL PLATE SCREW OR PIN SCHED BY FAX 02/08/24 [facility] PHONE ASSESS 03/28/2024 7:30 AM TELEHEALTH NURSE EDUCATOR documented as of this encounter Visit Diagnoses Not on filedocumented in this encounter Additional Health Concerns Assessment Noted Time PHQ-9 Depression Total Score: 0 10/26/19 22 11:07 AM CDT documented as of this encounter Care Teams Sewer System Supervisor Relationship Specialty Start Date End Date Clara Stanley APNP [address] [place] [address] PCP - General NURSE PRACTITIONER 06/01/18 Dominick Mccloud MD [facility]. [facility] [address] [place] [address] [place] Passenger Car Inspector CARDIOVASCULAR DISEASE 03/28/19 Alexis Lopez MD [address] [facility] [address] [place] [address] PULMONARY DISEASE 10/21/19 documented as of this encounter
--- OUTSIDE RECORDS SUMMARY | 2024-03-02 04:00 | XMS_ITS | Encounter Summary ---
Author Organization [facility] Address [address] [place] [address]. [place], [place] [address] [place] [address] Care Team Providers Care Apprentice/Lineman Name Role Phone Clara Stanley Primary Care Provider [phone] Dominick Mccloud MD Unavailable [phone] Alexis Lopez MD Unavailable [phone] Encounter Details Date Type Department Care Team [...] COVID-19? No / Unsure 03/28/2020 11:13 AM CUSTOMER SUPPORT TECHNICIAN documented as of this encounter Plan of Treatment Upcoming Encounters Date Type Department Care Team (Late st Contact Info) Description 03/28/2024 7:30 AM CUSTOMER SUPPORT TECHNICIAN Hospital Encounter [facility] [place] [address] Antwan Stone, DIEGO [address], [place] [address] 03/28/2024 7:30 AM CUSTOMER SUPPORT TECHNICIAN Anesthesia [place] [address] Shanelle Avila, COMMANDING OFFICER MOTORIZED SQUAD [address] [place] [address] 03/28/2024 7:30 AM CUSTOMER SUPPORT TECHNICIAN - 03/28/2024 8:48 AM CUSTOMER SUPPORT TECHNICIAN Surgery [place] [address] Antwan Stone, DIEGO [address], [place] [address] REMOVAL OF HARDWARE LEFT FOOT 04/05/2024 8:30 AM CUSTOMER SUPPORT TECHNICIAN Office Visit Darren Chaudhari-Omar'F allon THREE [facility], [facility] [address] [place] [address] Dominick Mccloud MD Three [facility]. [facility] [address] [place] [address] Scheduled Procedures Name Priority Associated Diagnoses Date/Ti me REMOVAL PLATE SCREW OR PIN SCHED BY FAX 02/08/24 JUANITOS PHONE ASSESS 03/28/2024 7:30 AM CUSTOMER SUPPORT TECHNICIAN documented as of this encounter Visit Diagnoses Not on filedocumented in this encounter Additional Health Concerns Assessment Noted Time PHQ-9 Depression Total Score: 4 03/28/19 21 1:42 PM CUSTOMER SUPPORT TECHNICIAN documented as of this encounter Care Teams Apprentice/Lineman Relationship Specialty Start Date End Date Clara Stanley APNP [address] [place] [address] PCP - General NURSE PRACTITIONER 06/01/18 Dominick Mccloud MD [facility] [address] [place] [address] [place] Cuff Runner CARDIOVASCULAR DISEASE 03/28/19 Alexis Lopez MD [address] [facility] [address] [address] PULMONARY DISEASE 10/21/19 documented as of this encounter
--- OUTSIDE RECORDS SUMMARY | 2024-03-02 04:00 | XMS_ITS | Encounter Summary ---
Author Organization [facility] Address [address] [place] [address]. [place] [address] [place] [address] Care Team Providers Care Test Designer Name Role Phone Clara Stanley Primary Care Provider [phone] Dominick Mccloud MD Unavailable [phone] Alexis Lopez MD Unavailable [phone] Encounter Details Date Type Department Care Team (Late st Contact Info) Description 03/27/2022 Orders Only [facility] [id number] [place], [facility] Social History Tobacco Use Types Packs/Day Years [...] Coronavirus/COVID-19? No / Unsure 03/24/2022 10:37 AM DEBT COLLECTOR documented as of this encounter Plan of Treatment Upcoming Encounters Date Type Department Care Team (Late st Contact Info) Description 03/28/2024 7:30 AM DEBT COLLECTOR Hospital Encounter [facility] [place] [address] Antwan Stone, DIEGO [address], [place] [address] 03/28/2024 7:30 AM DEBT COLLECTOR Anesthesia [place] [address] Shanelle Avila, RAEANN [address] [place] [address] 03/28/2024 7:30 AM DEBT COLLECTOR - 03/28/2024 8:48 AM DEBT COLLECTOR Surgery [place] [address] Antwan Stone, DIEGO [address], [place] [address] REMOVAL OF HARDWARE LEFT FOOT 04/05/2024 8:30 AM DEBT COLLECTOR Office Visit Darren Cardiovascular-O'F allon [address] [facility], [facility] [address] [place] [address] Dominick Mccloud MD Three [facility] [address] [place] [address] Scheduled Procedures Name Priority Associated Diagnoses Date/Ti me REMOVAL PLATE SCREW OR PIN SCHED BY FAX 02/08/24 KAYLIE PHONE ASSESS 03/28/2024 7:30 AM DEBT COLLECTOR documented as of this encounter Visit Diagnoses Not on filedocumented in this encounter Additional Health Concerns Assessment Noted Time PHQ-9 Depression Total Score: 0 10/26/19 22 11:07 AM CDT documented as of this encounter Care Teams Test Designer Relationship Specialty Start Date End Date Clara Stanley APNP [address] [place] [address] PCP - General NURSE PRACTITIONER 06/01/18 Dominick Mccloud MD [place] [id number] [place] [address] [place] Recorder CARDIOVASCULAR DISEASE 03/28/19 Alexis Lopez MD [address] [address] PULMONARY DISEASE 10/21/19 documented as of this encounter
--- OUTSIDE RECORDS SUMMARY | 2024-03-02 04:00 | XMS_ITS | Encounter Summary ---
Author Organization [facility] Address [address] [place] [address]. [place], [place] [address] [place] [address] Care Team Providers Care Wader Boot Top Assembler Name Role Phone Clara Stanley Primary Care Provider +[phone] Dominick Mccloud MD Unavailable [phone] Alexis Lopez MD Unavailable [phone] Encounter Details Date Type Department Care Team [...] 7:30 AM [facility] Hospital Encounter [facility] [place] [address] Antwan Stone DPM [address], [place] [address] 03/28/2024 7:30 AM SUPERVISOR NUT PROCESSING Anesthesia Event [facility] [place] [address] Shanelle Avila, ADMIN PROG COORD 1 [place] [address] 03/28/2024 7:30 AM SUPERVISOR NUT PROCESSING - 03/28/2024 8:48 AM SUPERVISOR NUT PROCESSING Surgery [facility] [place] [address] Antwan Stone DPM [address], [place] [address] REMOVAL OF HARDWARE LEFT FOOT 04/05/2024 8:30 AM SUPERVISOR NUT PROCESSING Office Visit [facility] THREE [facility] [address] [place], [place] [address] Dominick Mccloud MD Three [facility]. [facility] [address] [place], [place] [address] Scheduled Procedures Name Priority Associated Diagnoses Date/Ti me REMOVAL PLATE SCREW OR PIN SCHED BY FAX 02/08/24 [facility] PHONE ASSESS 03/28/2024 7:30 AM SUPERVISOR NUT PROCESSING documented as of this encounter Visit Diagnoses Not on filedocumented in this encounter Care Teams Wader Boot Top Assembler Relationship Specialty Start Date End Date Clara Stanley APNP [address] [place] [address] PCP - General NURSE PRACTITIONER 06/01/18 Dominick Mccloud MD [facility]. [facility] [address] [place] [address] Fely Mining Engineer CARDIOVASCULAR DISEASE 03/28/19 Alexis Lopez MD [address] [facility] [address] [place] [address] PULMONARY DISEASE 10/21/19 documented as of this encounter
--- OUTSIDE RECORDS SUMMARY | 2024-03-02 04:00 | XMS_ITS | Encounter Summary ---
Author Organization [facility] Address [address] [place] [address]. [place], [place] [address] [place] [address] Care Team Providers Care Natural Developer Name Role Phone Clara Stanley Primary Care Provider [phone] Dominick Mccloud MD Unavailable [phone] Alexis Lopez MD Unavailable [phone] Encounter Details Date Type Department Care Team [...] [facility] Hospital Encounter [facility] [place] [address] Antwan Stone DPM [address], [place] [address] 03/28/2024 7:30 AM ASSEMBLY MANAGER Anesthesia Event [facility] [place] [address] Shanelle Avila, TRAINING AND DEVELOPMENT PROFESSIONAL 1 [place] [address] 03/28/2024 7:30 AM ASSEMBLY MANAGER - 03/28/2024 8:48 AM ASSEMBLY MANAGER Surgery [facility] [place] [address] Antwan Stone DPM [address], [place] [address] REMOVAL OF HARDWARE LEFT FOOT 04/05/2024 8:30 AM ASSEMBLY MANAGER Office Visit [facility] THREE [facility] [address] [place], [place] [address] Dominick Mccloud MD Three [facility]. [facility] [address] [place], [place] [address] Scheduled Procedures Name Priority Associated Diagnoses Date/Ti me REMOVAL PLATE SCREW OR PIN SCHED BY FAX 02/08/24 [facility] PHONE ASSESS 03/28/2024 7:30 AM ASSEMBLY MANAGER documented as of this encounter Visit Diagnoses Not on filedocumented in this encounter Care Teams Natural Developer Relationship Specialty Start Date End Date Clara Stanley APNP [address] [place] [address] PCP - General NURSE PRACTITIONER 06/01/18 Dominick Mccloud MD [facility]. [facility] [address] [place] [address] Fely Fast Brim Pouncer CARDIOVASCULAR DISEASE 03/28/19 Alexis Lopez MD [address] [facility] [address] [place] [address] PULMONARY DISEASE 10/21/19 documented as of this encounter
--- OUTSIDE RECORDS SUMMARY | 2024-03-02 04:00 | XMS_ITS | Encounter Summary ---
Author Organization [facility] Address [address] [place] [address]. [place] [address] [place] [address] Care Team Providers Care Teacher Of Gifted Students Name Role Phone Lizeth Clara CARRINGTON Primary Care Provider [phone] Dominick Mccloud MD Unavailable [phone] Alexis Lopez MD Unavailable [phone] Reason for Visit * Reason Comments Hypertension 2 month follow up Encounter Details Date Type Department Care Team (Late st Contact Info) Description 04/01/2022 8:45 AM [facility] NURSE PRACTITIONER Office Visit [facility] THREE [facility], [facility] [address] [place] [address] Dominick Mccloud MD Three [facility]. [facility] [address] [place], [place] [id number] Hypertension (2 month follow up ) Social [...] Coronavirus/COVID-19? No / Unsure 04/01/2022 8:46 AM WOMENS HEALTH NURSE PRACTITIONER documented as of this encounter Last Filed Vital Signs Vital Sign Reading Time Taken Comments Blood Pressure 150/88 04/01/2022 8:49 AM [facility]OMENS HEALTH NURSE PRACTITIONER Pulse 79 04/01/2022 8:49 AM WOMENS HEALTH NURSE PRACTITIONER Temperature - - Respiratory Rate - - Oxygen Saturation 97% 04/01/2022 8:49 AM [facility] HE[facility] NURSE PRACTITIONER Inhaled Oxygen Concentration - - Weight 165.6 kg (365 lb) 04/01/2022 8:49 AM WOMENS HEALTH NURSE PRACTITIONER Height 190.5 cm (6' 3 ) 04/01/2022 8:49 AM WOMENS HEALTH NURSE PRACTITIONER Body Mass Index 45.62 04/01/2022 8:49 AM WOMENS HEALTH NURSE PRACTITIONER documented in this encounter Progress Notes * [...] a PPI. He has followup with his professional advisor in thenext few weeks as well as upcoming PFTs. As detailed below, he has undergone stress test and echo since his last visit without significant abnormalities. He does have sleep apnea, but has difficulty tolerating his CPAP machine. #[id number] /TAP ASSESSMENT AND PLAN: PROBLEM LIST: 1. [...] evaluation. He is following up with his professional advisor, and I will defer to him for [...] me with any further questions or concerns. #[id number] /TAP/ASS DATA REVIEWED: 03/24/22 Treadmill nuclear stress [...] block. 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 He has no history of tobacco use, [...] as needed. , Disp: , Rfl: ??? Fmrwthdxhqt-Iuwbogpxc-Waivoi (TRELEGY ELLIPTA) 100-62.5-25 MCG/ACT AEROSOL POWDER, BREATH [...] Rfl: ??? vitamin D3, cholecalciferol, 1.25 MG (06618 UT) capsule, Take 50,000 Units by mouth [...] No ref. provider found PCP: ZEB Nunn NS HEALTH NURSE PRACTITIONER NS HEALTH NURSE PRACTITIONER documented in this encounter Plan of Treatment Upcoming Encounters Date Type Department Care Team (Late st Contact Info) Description 03/28/2024 7:30 AM [facility]OMENS HEALTH NURSE PRACTITIONER Hospital Encounter [facility] [place] [address] Antwan Stone DPM [address] [place] [address] 03/28/2024 7:30 AM WOMENS HEALTH NURSE PRACTITIONER Anesthesia Event [facility] [place] [address] Shanelle Avila, INSURANCE COUNSEL 1 [facility] [place] [address] 03/28/2024 7:30 AM WOMENS HEALTH NURSE PRACTITIONER - 03/28/2024 8:48 AM WOMENS HEALTH NURSE PRACTITIONER Surgery [place] OR ONE [facility] [place] [address] Antwan Stone DPM [address] [place] [address] REMOVAL OF HARDWARE LEFT FOOT 04/05/2024 8:30 AM WOMENS HEALTH NURSE PRACTITIONER Office Visit [facility] THREE [facility], [facility] [address] [place] [address] Dominick Mccloud MD Three [facility]. [facility] [address] [place], [place] [address] Scheduled Procedures Name Priority Associated Diagnoses Date/Ti me REMOVAL PLATE SCREW OR PIN SCHED BY FAX 02/08/24 [facility] PHONE ASSESS 03/28/2024 7:30 AM WOMENS HEALTH NURSE PRACTITIONER documented as of this encounter Visit Diagnoses Diagnosis PEARCE (dyspnea on exertion)- Primary Other dyspnea and respiratory abnormality Hypertension, benign Essential hypertension, benign Mixed hyperlipidemia Painful orthopaedic hardware (CMS/HCC)- Primary documented in this encounter Additional Health Concerns Assessment Noted Time PHQ-9 Depression Total Score: 0 10/26/19 22 11:07 AM CDT documented as of this encounter Care Teams Teacher Of Gifted Students Relationship Specialty Start Date End Date Clara Stanley APNP [address] [place] [address] PCP - General NURSE PRACTITIONER 06/01/18 Dominick Mccloud MD [facility]. [facility] [address] [place] [address] [place] Supervisor Joiners CARDIOVASCULAR DISEASE 03/28/19 Alexis Lopez MD [address] [facility] [address] [address] PULMONARY DISEASE 10/21/19 documented as of this encounter
--- OUTSIDE RECORDS SUMMARY | 2024-03-02 04:00 | XMS_ITS | Encounter Summary ---
Author Organization [facility] Address [address] [place] [address]. [place], [place] [address] [place] [address] Care Team Providers Care Software Technical Lead Name Role Phone Clara Stanley Primary Care Provider [phone] Dominick Mccloud MD Unavailable [phone] Alexis Lopez MD Unavailable [phone] Encounter Details Date Type Department Care Team (Latest Contact Info) Description 12/27/2020 Scan Loginza INFO SRVCS Scanned, Documents Social History Tobacco [...] [facility] Hospital Encounter [facility] [place] [address] Antwan Stone, DPÁngel [address], [place] [address] 03/28/2024 7:30 AM WORKFORCE SPECIALIST Anesthesia Event [facility] [place] [address] Shanelle Avila, RAEANN [address] [place] [address] 03/28/2024 7:30 AM WORKFORCE SPECIALIST - 03/28/2024 8:48 AM WORKFORCE SPECIALIST Surgery [facility] [place] [address] Antwan Stone, DIEGO [address] [place] [address] REMOVAL OF HARDWARE LEFT FOOT 04/05/2024 8:30 AM WORKFORCE SPECIALIST Office Visit [place] THREE [facility], [facility] [address] [place] [address] Dominick Mccloud MD Three [facility]. [facility] [address] [place] [address] Scheduled Procedures Name Priority Associated Diagnoses Date/Ti me REMOVAL PLATE SCREW OR PIN SCHED BY FAX 02/08/24 [facility] PHONE ASSESS 03/28/2024 7:30 AM WORKFORCE SPECIALIST documented as of this encounter Visit Diagnoses Not on filedocumented in this encounter Additional Health Concerns Assessment Noted Time PHQ-9 Depression Total Score: 4 03/28/19 21 1:42 PM WORKFORCE SPECIALIST documented as of this encounter Care Teams Software Technical Lead Relationship Specialty Start Date End Date Clara Stanley APNP [address] [place] [address] PCP - General NURSE PRACTITIONER 06/01/18 Dominick Mccloud MD [facility]. [facility] [address] [place] [address] [place] Photography Teacher CARDIOVASCULAR DISEASE 03/28/19 Alexis Lopez MD [address] [facility] [address] [place] [address] PULMONARY DISEASE 10/21/19 documented as of this encounter
--- OUTSIDE RECORDS SUMMARY | 2024-03-02 04:00 | XMS_ITS | Encounter Summary ---
Author Organization [facility] Address [address] [place] [address]. [place], [place] [address] [place] [address] Care Team Providers Care Plate Grinder Name Role Phone Clara Stanley Primary Care Provider [phone] Dominick Mccloud MD Unavailable [phone] Alexis Lopez MD Unavailable [phone] Encounter Details Date Type Department Care Team [...] COVID-19? No / Unsure 01/23/2021 1:35 PM PUBLIC WORKS SUPERVISOR documented as of this encounter Plan of Treatment Upcoming Encounters Date Type Department Care Team (Late st Contact Info) Description 03/28/2024 7:30 AM PUBLIC WORKS SUPERVISOR Hospital Encounter [facility] [place] [address] Antwan Stone, DIEGO [address], [place] [address] 03/28/2024 7:30 AM PUBLIC WORKS SUPERVISOR Anesthesia [place] [address] Shanelle Avila, VP PRODUCT MANAGEMENT 1 [place] [address] 03/28/2024 7:30 AM PUBLIC WORKS SUPERVISOR - 03/28/2024 8:48 AM PUBLIC WORKS SUPERVISOR [place] [address] Antwan Stone, DIEGO [address], [place] [address] REMOVAL OF HARDWARE LEFT FOOT 04/05/2024 8:30 AM PUBLIC WORKS SUPERVISOR Office Visit [facility] THREE [facility], [facility] [address] [place] [address] Dominick Mccloud MD Three [facility]. [facility] [address] [place] [address] Scheduled Procedures Name Priority Associated Diagnoses Date/Ti me REMOVAL PLATE SCREW OR PIN SCHED BY FAX 02/08/24 [facility] PHONE ASSESS 03/28/2024 7:30 AM PUBLIC WORKS SUPERVISOR documented as of this encounter Visit Diagnoses Not on filedocumented in this encounter Additional Health Concerns Assessment Noted Time PHQ-9 Depression Total Score: 4 03/28/19 21 1:42 PM PUBLIC WORKS SUPERVISOR documented as of this encounter Care Teams Plate Grinder Relationship Specialty Start Date End Date Clara Stanley APNP [address] [place] [address] PCP - General NURSE PRACTITIONER 06/01/18 Dominick Mccloud MD [facility] [address] [place] [address] [place] Operator CARDIOVASCULAR DISEASE 03/28/19 Alexis Lopez MD [address] [facility] [address] [address] PULMONARY DISEASE 10/21/19 documented as of this encounter
--- OUTSIDE RECORDS SUMMARY | 2024-03-02 04:00 | XMS_ITS | Encounter Summary ---
Author Organization [facility] Address [address] [place] [address]. [place], [place] [address] [place] [address] Care Team Providers Care Process Control Board Operator Name Role Phone Clara Stanley Primary Care Provider [phone] Dominick Mccloud MD Unavailable [phone] Alexis Lopez MD Unavailable [phone] Encounter Details Date Type Department Care Team [...] st Contact Info) Description 03/28/2024 7:30 AM [facility] Hospital Encounter [facility] [place] [address] Antwan Stone DPM [address] [place], [place] [address] 03/28/2024 7:30 AM AUTOMATED ACCESS SYSTEMS TECHNICIAN Anesthesia Event [facility] [place] [address] Shanelle Avila, TIN WHIZ 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 1 [place] [address] 03/28/2024 7:30 AM AUTOMATED ACCESS SYSTEMS TECHNICIAN - 03/28/2024 8:48 AM AUTOMATED ACCESS SYSTEMS TECHNICIAN Surgery [facility] [place] [address] Antwan Stone DPM [address], [place] [address] REMOVAL OF HARDWARE LEFT FOOT 04/05/2024 8:30 AM AUTOMATED ACCESS SYSTEMS TECHNICIAN Office Visit [facility] THREE [facility] [address] [place], [place] [address] Dominick Mccloud MD Three [facility]. [facility] [address] [place], [place] [address] Scheduled Procedures Name Priority Associated Diagnoses Date/Ti me REMOVAL PLATE SCREW OR PIN SCHED BY FAX 02/08/24 [facility] PHONE ASSESS 03/28/2024 7:30 AM AUTOMATED ACCESS SYSTEMS TECHNICIAN documented as of this encounter Visit Diagnoses Not on filedocumented in this encounter Care Teams Process Control Board Operator Relationship Specialty Start Date End Date Clara Stanley APNP [address] [place] [address] PCP - General NURSE PRACTITIONER 06/01/18 Dominick Mccloud MD [facility]. [facility] [address] [place] [address] Fely Chassis Engineer CARDIOVASCULAR DISEASE 03/28/19 Alexis Lopez MD [address] [facility] [address] [place] [address] PULMONARY DISEASE 10/21/19 documented as of this encounter
--- OUTSIDE RECORDS SUMMARY | 2024-03-02 04:00 | XMS_ITS | Encounter Summary ---
Author Organization [facility] Address [address] [place] [address]. [place], [place] [address] [place] [address] Care Team Providers Care Medical Insurance Coder Name Role Phone Clara Stanley Primary Care Provider [phone] Dominick Mccloud MD Unavailable [phone] Alexis Lopez MD Unavailable [phone] Encounter Details Date Type Department Care Team [...] COVID-19? No / Unsure 03/28/2020 11:13 AM INFORMATION SYSTEMS TECHNICIAN documented as of this encounter Plan of Treatment Upcoming Encounters Date Type Department Care Team ( st Contact Info) Description 03/28/2024 7:30 AM INFORMATION SYSTEMS TECHNICIAN Hospital Encounter [facility] Day [facility] [place] [address] Antwan Stone, DIEGO [address] [place], [place] [address] 03/28/2024 7:30 AM INFORMATION SYSTEMS TECHNICIAN Anesthesia [place] [address] Shanelle Avila, WATER MAIN INSPECTOR 1 [place] [address] 03/28/2024 7:30 AM INFORMATION SYSTEMS TECHNICIAN - 03/28/2024 8:48 AM INFORMATION SYSTEMS TECHNICIAN Surgery [place] [address] Antwan Stone, DIEGO [address] [place], [place] [address] REMOVAL OF HARDWARE LEFT FOOT 04/05/2024 8:30 AM INFORMATION SYSTEMS TECHNICIAN Office Visit [facility]'F all[facility] THREE [facility] [address] [place] [address] Dominick Mccloud MD Three [facility]. [facility] [address] [place] [address] Scheduled Procedures Name Priority Associated Diagnoses Date/Ti me REMOVAL PLATE SCREW OR PIN SCHED BY FAX 02/08/24 [facility] PHONE ASSESS 03/28/2024 7:30 AM INFORMATION SYSTEMS TECHNICIAN documented as of this encounter Visit Diagnoses Not on filedocumented in this encounter Additional Health Concerns Assessment Noted Time PHQ-9 Depression Total Score: 4 03/28/19 21 1:42 PM INFORMATION SYSTEMS TECHNICIAN documented as of this encounter Care Teams Medical Insurance Coder Relationship Specialty Start Date End Date Clara Stanley APNP [address] [place] [address] PCP - General NURSE PRACTITIONER 06/01/18 Dominick Mccloud MD [facility] [address] [place] [address] [place] Publication Specialist CARDIOVASCULAR DISEASE 03/28/19 Alexis Lopez MD [address] [facility] [address] [place] [address] PULMONARY DISEASE 10/21/19 documented as of this encounter
--- OUTSIDE RECORDS SUMMARY | 2024-03-02 04:00 | XMS_ITS | Encounter Summary ---
Author Organization [facility] Address [address] [place] [address]. [place], [place] [address] [place] [address] Care Team Providers Care Procurement Technician Name Role Phone Irwin Stanley Primary Care Provider [phone] Dominick Mccloud MD Unavailable [phone] Alexis Lopez MD Unavailable [phone] Reason for Visit * Auth/Cert Specialty Diagnoses / Procedures Referred By Erik [email or web address] Referred To Contact Diagnoses Varicose veins of right lower extremity with pain VARICOSE VEINS OF RIGHT LOWER EXTREMITY WITH PAIN Procedures RIGHT STAB PHLEBECTOMY Referral ID Status Reason Start Date Expiration Date Visits Re quested Visits Authorized [id number] 1 1 Encounter Details Date Type Department Care Team (Late st Contact Info) Description 10/31/2019 11:00 AM CDT - 10/31/2019 12:58 PM CDT Surgery [facility] OR ONE [place], [place] [id number] Antwan Pineda MD Three [facility]. [facility] [address] [place] [address] RIGHT STAB PHLEBECTOMY Surgery Details Date/Time Status [...] Care Everywhere. * Surgical Wound Discharge Instructions (Indonesian) * Hydrocodone and Acetaminophen, ADULT (Indonesian) * General Anesthesia Discharge Instructions (Indonesian) documented in this encounter Medications at Time of Discharge cetirizine (ZYRTEC) 10 MG tablet Take 1 tablet (10 mg total) by mouth daily. 5 Multiple Vitamins-Minerals (MULTIVITAMIN ADULT OR) Take 1 tablet by mouth daily. vitamin C 1000 MG tablet Take 1 tablet (1,000 mg total) by mouth daily. vitamin D3, cholecalciferol, 1.25 MG (31739 UT) capsule Take 1 capsule (50,000 Units [...] Doc Abstract vitamin D3, cholecalciferol, 1.25 MG (77754 UT) capsule Take 50,000 Units by mouth [...] 5 incisions were made during the procedure. #[id number] /NTS * OR PreOp - Joyce Glover [...] tolerance in past 6 months. Patient sees health care administrator Dr. Mccloud and previous cardiac testing copied. Patient scheduled for COVID testing 10/28/19 High risk LEONOR Patient sees odd job worker Dr. Lopez with recent hx of lung [...] on file here it was done at [facility]. Do you see a health care administrator? Who is it? Dr. Mccloud Telephone consent obtained from patient for COVID-19 testing. Patient agrees to comply with self-isolation as instructed until day of surgery. Patient expressed understanding. documented in this encounter Plan of Treatment Upcoming Encounters Date Type Department Care Team (Late st Contact Info) Description 03/28/2024 7:30 AM [facility] Hospital Encounter [facility] ONE [facility] [address] Antwan Stone DPM [address], [place] [address] 03/28/2024 7:30 AM WAREHOUSE HELPER Anesthesia [place] [address] Shanelle Avila, FINGERPRINT EXPERT 1 [facility] [address] 03/28/2024 7:30 AM WAREHOUSE HELPER - 03/28/2024 8:48 AM WAREHOUSE HELPER Surgery [facility] OR ONE [facility] [address] Antwan Stone DPM [address], [place] [address] REMOVAL OF HARDWARE LEFT FOOT 04/05/2024 8:30 AM WAREHOUSE HELPER Office Visit Darren Chaudhari-O'F johnn THREE [facility], [facility] [address] [place], [place] [phone] Dominick Mccloud MD Three [facility]. [facility] [address] [place], [place] [phone] Scheduled Procedures Name Priority Associated Diagnoses Date/Ti me REMOVAL PLATE SCREW OR PIN SCHED BY FAX 02/08/24 [facility] PHONE ASSESS 03/28/2024 7:30 AM WAREHOUSE HELPER documented as of this encounter Procedures Procedure [...] - 99 MG/DL 10/31/2019 10:14 AM CDT [facility] BUN 16 7 - 18 MG/DL 10/31/2019 10:14 AM CDT [facility] CREATININE S/P/B 0.74 0.7 - 1.3 MG/DL 10/31/2019 10:14 AM CDT [facility] SODIUM S/P/B 137 136 - 145 MMOL/L 10/31/2019 10:14 AM CDT [facility] POTASSIUM S/P/B 4.9 3.5 - 5.1 MMOL/L 10/31/2019 10:14 AM CDT [facility] Comment:SLIGHT HEMOLYSIS, RE SULT MAY BE AFFECTED. CHLORIDE S/P/B 112(H) 100 - 108 MMOL/L 10/31/2019 10:14 AM CDT [facility] CO2 19.8(L) 21 - 32 MMOL/L 10/31/2019 10:14 AM CDT [facility] CALCIUM S/P/B 9.0 8.5 - 10.1 MG/DL 10/31/2019 10:14 AM T [facility] BILIRUBIN TOTAL S/P/B 0.6 0.2 - 1.2 MG/DL 10/31/2019 10:14 AM T [facility] Comment: THIS ASSAY IS NOT RECOMMENDED FOR PATIENTS UNDERGOING TREATMENT WITH ELTROMBOPAG DUE TO THE POTENTIAL FOR FALSELY ELEVATED RESULTS. TOTAL PROTEIN S/P/B 7.6 6.4 - 8.2 G/DL 10/31/2019 10:14 AM T [facility] ALBUMIN S/P/B 3.4 3.4 - 5.0 G/DL 10/31/2019 10:14 AM T [facility] AST 40(H) 15 - 37 U/L 10/31/2019 10:14 AM T [facility] Comment:SLIGHT HEMOLYSIS, RE SULT MAY BE AFFECTED. ALT 24 16 - 60 U/L 10/31/2019 10:14 AM T [facility] ALKALINE PHOSPHATASE S/P/B 118 50 - 136 U/L 10/31/2019 10:14 AM T [facility] ANION GAP 5.2 5 - 15 MMOL/L 10/31/2019 10:14 AM T [facility] BUN CREATININE RATIO 21.7 6 - 26 10/31/2019 10:14 AM T [facility] A/G RATIO 0.8(L) 1.0 - 2.0 RATIO 10/31/2019 10:14 AM T [facility] EGFR NON-AFR. AMER. >90 >90 ML/MIN/1.7 3 M2 10/31/2019 10:14 AM CDT [facility] EGFR AFR. AMER. >90 >90 ML/MIN/1.7 3 M2 10/31/2019 10:14 AM CDT [facility] Comment: NOTE: eGFR is not calculated for patients <18 years of age. This is an estimated GFR (CKD EPI) and should not be used for calculating drug doses. 10/31/2019 9:20 AM CDT us Antwan Pineda MD LABORATORY Final Result [facility] [address] [place] [address], [place] [phone] * (ABNORMAL) CBC W/DIFF AUTOMATED (10/31/2019 9:20 AM CDT) WBC 9.3 4.5 - 11.0 x10'3/uL 10/31/2019 9:49 AM CDT [facility] RBC 4.97 4.70 - 6.10 x10'6/uL 10/31/2019 9:49 AM CDT [facility] HGB 13.7(L) 14.0 - 18.0 G/DL 10/31/2019 9:49 AM CDT [facility] HCT 42.4(L) 43.0 - 54.0 % 10/31/2019 9:49 AM CDT [facility] MCV 85.3 80.0 - 94.0 FL 10/31/2019 9:49 AM CDT [facility] MCH 27.6 27.0 - 31.0 PG 10/31/2019 9:49 AM CDT [facility] MCHC 32.3 32.0 - 36.0 G/DL 10/31/2019 9:49 AM CDT [facility] RDW 15.9(H) 11.5 - 14.5 % 10/31/2019 9:49 AM CDT [facility] PLT 243 130 - 400 x10'3/uL 10/31/2019 9:49 AM CDT [facility] MPV 11.9 9.3 - 12.2 FL 10/31/2019 9:49 AM CDT [facility] DIFFERENTIAL TYPE AUTOMATED DIFFERENTIAL 10/31/2019 9:49 AM CDT [facility] NEUTROPHILS % 73.1 % 10/31/2019 9:49 AM CDT [facility] LYMPHOCYTES % 13.3 % 10/31/2019 9:49 AM CDT [facility] MONOCYTES % 9.4 % 10/31/2019 9:49 AM CDT [facility] EOSINOPHILS 3.1 % 10/31/2019 9:49 AM CDT [facility] BASOPHILS 0.5 % 10/31/2019 9:49 AM CDT [facility] IMMATURE GRANS % 0.6 % 10/31/19 20 9:49 AM CDT [facility] ABS. NEUTROPHILS TOTAL 6.75 1.80 - 7.70 x10'3/uL 10/31/2019 9:49 AM CDT [facility] ABS. LYMPHOCYTES 1.23 1.00 - 4.80 x10'3/uL 10/31/2019 9:49 AM CDT [facility] ABS. MONOCYTES 0.87(H) 0.30 - 0.82 x10'3/uL 10/31/2019 9:49 AM CDT [facility] ABS. EOSINOPHILS 0.29 0.04 - 0.54 x10'3/uL 10/31/2019 9:49 AM CDT [facility] ABS. BASOPHILS 0.05 0.01 - 0.08 x10'3/uL 10/31/2019 9:49 AM CDT [facility] ABS. IMMATURE GRANULOCYTES 0.06 0.00 - 0.49 x10'3/uL 10/31/2019 9:49 AM CDT [facility] 10/31/2019 9:20 AM CDT us Antwan Pineda MD LABORATORY Final Result [facility] [address] [facility] [place] [address], * Pathology (10/31/2019 12:00 AM CDT) COPATH REPORT ? [facility] ? [address] [facility] [address] ? [place], [place] [address] ? [id number] ? Department of Pathology ? Pathology Report ? SURGICAL FINAL REPORT Patient Name: MP KULKARNI ?? : 1965 (Age: 54) ? Location: [facility] Gender: M ?Collected Date: 10/31/2019 Med Rec #: [id number] ?Date Received: 10/31/2019 Date Reported: 11/01/2019 Provider: [...] in one cassette. : Billing Fee Code(s): 10191 [facility] Tissue specimen (specimen) (OTHER (type in comments)) 10/31/2019 11:21 AM CDT us Antwan Pineda MD PATHOLOGY/CYTOLOGY ORDERABLES Fi nal Result [facility] [address] [facility] [place] [address], [place] [phone] documented in this encounter Visit Diagnoses Diagnosis [...] MD) documented in this encounter Care Teams Procurement Technician Relationship Specialty Start Date End Date Irwin Stanley APNP [address] [place] [id number] PCP - General NURSE PRACTITIONER 06/01/18 Dominick Mccloud MD [id number] [place] [address] Almyra Interchange Agent CARDIOVASCULAR DISEASE 03/28/19 Alexis Lopez MD [address] [place] [address] PULMONARY DISEASE 10/21/19 documented as of this encounter
--- OUTSIDE RECORDS SUMMARY | 2024-03-02 04:00 | XMS_ITS | Encounter Summary ---
Author Organization [facility] Address [address] [place] [address]. [place], [place] [address] [place] [address] Care Team Providers Care Offset Press Operator Name Role Phone Clara Stanley Primary Care Provider Dominick Mccloud MD Unavailable [phone] Alexis Lopez MD Unavailable [phone] Kip Del Rio MD Unavailable [phone] Encounter Details Date Type Department Care Team (Late st Contact Info) Description 09/10/2022 MyChart Message Enc [facility] [address] [place] [address] Validity Sensorsfinley, [facility] Provider Air Quality Message Social History [...] st Contact Info) Description 03/28/2024 7:30 AM CARDIAC EXERCISE PHYSIOLOGIST Hospital Encounter [facility] [place] [address] Antwan Stone, DIEGO [address], [place] [address] 03/28/2024 7:30 AM CARDIAC EXERCISE PHYSIOLOGIST Anesthesia [place] [address] Shanelle Avila, HUMAN RESOURCES PROJECT MANAGER 1 [place] [address] 03/28/2024 7:30 AM CARDIAC EXERCISE PHYSIOLOGIST - 03/28/2024 8:48 AM CARDIAC EXERCISE PHYSIOLOGIST Surgery [facility] [place] [address] Antwan Stone, DIEGO [address], [place] [address] REMOVAL OF HARDWARE LEFT FOOT 04/05/2024 8:30 AM CARDIAC EXERCISE PHYSIOLOGIST Office Visit Darren Chaudhari-O'F allon THREE [facility], [facility] [address] [place] [address] Dominick Mccloud MD Three [facility]. [facility] [address] [place] [address] Scheduled Procedures Name Priority Associated Diagnoses Date/Ti me REMOVAL PLATE SCREW OR PIN SCHED BY FAX 02/08/24 JUANITOS PHONE ASSESS 03/28/2024 7:30 AM CARDIAC EXERCISE PHYSIOLOGIST documented as of this encounter Visit Diagnoses Not on filedocumented in this encounter Additional Health Concerns Assessment Noted Time PHQ-9 Depression Total Score: 0 10/26/19 22 11:07 AM CDT documented as of this encounter Care Teams Offset Press Operator Relationship Specialty Start Date End Date Clara Stanley APNP [address] [place] [address] PCP - General NURSE PRACTITIONER 06/01/18 Dominick Mccloud MD [facility] [address] [place] [address] [place] Movers CARDIOVASCULAR DISEASE 03/28/19 Alexis Lopez MD [address]00 [facility] [address] [place] [address] PULMONARY DISEASE 10/21/19 Kip Del Rio MD [address] [facility] [address] [place] [address] MEDICAL ONCOLOGY 02/24/24 documented as of this encounter
--- OUTSIDE RECORDS SUMMARY | 2024-03-02 04:00 | XMS_ITS | Encounter Summary ---
Author Organization [facility] Address [address] [place] [address]. [place] [address] [place] [address] Care Team Providers Care Scutcher Tender Name Role Phone Clara Stanley Primary Care Provider [phone] Dominick Mccloud MD Unavailable [phone] Alexis Lopez MD Unavailable [phone] Encounter Details Date Type Department Care Team (Late st Contact Info) Description 02/11/2022 Orders Only [facility] [address] Deyanira Aguilar, [facility] Social History Tobacco Use Types Packs/Day Years [...] Coronavirus/COVID-19? No / Unsure 02/12/2022 9:06 AM FAMILY MEDICINE PHYSICIAN documented as of this encounter Plan of Treatment Upcoming Encounters Date Type Department Care Team (Late st Contact Info) Description 03/28/2024 7:30 AM FAMILY MEDICINE PHYSICIAN Hospital Encounter [facility] ONE [facility] [place] [facility] [address] Antwan Stone, DIEGO [address], [place] [address] 03/28/2024 7:30 AM FAMILY MEDICINE PHYSICIAN Anesthesia [place] [address] Shanelle Avila, RAEANN [address] [place] [address] 03/28/2024 7:30 AM FAMILY MEDICINE PHYSICIAN - 03/28/2024 8:48 AM FAMILY MEDICINE PHYSICIAN Surgery [place] [address] Antwan Stone, DIEGO [address], [place] [address] REMOVAL OF HARDWARE LEFT FOOT 04/05/2024 8:30 AM FAMILY MEDICINE PHYSICIAN Office Visit [facility] Cardiovascular-O'F allon THREE [facility], [facility] [address] [place] [address] Dominick Mccloud MD Three [facility]. [facility] [address] [place] [address] Scheduled Procedures Name Priority Associated Diagnoses Date/Ti me REMOVAL PLATE SCREW OR PIN SCHED BY FAX 02/08/24 KAYLIE PHONE ASSESS 03/28/2024 7:30 AM FAMILY MEDICINE PHYSICIAN documented as of this encounter Visit Diagnoses Not on filedocumented in this encounter Additional Health Concerns Assessment Noted Time PHQ-9 Depression Total Score: 0 10/26/19 22 11:07 AM CDT documented as of this encounter Care Teams Scutcher Tender Relationship Specialty Start Date End Date Clara Stanley APNP [address] [place] [address] PCP - General NURSE PRACTITIONER 06/01/18 Dominick Mccloud MD [address] [place] [address] [place] Microsoft Net Developer CARDIOVASCULAR DISEASE 03/28/19 Alexis Lopez MD [address] [address] PULMONARY DISEASE 10/21/19 documented as of this encounter
--- OUTSIDE RECORDS SUMMARY | 2024-03-02 04:00 | XMS_ITS | Encounter Summary ---
Author Organization [facility] Address [address] [place] [address]. [place], [place] [address] [place] [address] Care Team Providers Care Boat Rental Clerk Name Role Phone Clara Satnley Primary Care Provider [phone] Dominick Mccloud MD Unavailable [phone] Alexis Lopez MD Unavailable [phone] Encounter Details Date Type Department Care Team (Latest Contact Info) Description 12/10/2021 Scan [employer] SRVCS Scanned, Documents Social History Tobacco Use [...] AM [facility] Hospital Encounter [facility] [place] [address] Antwan Stone, DPÁngel [address], [place] [address] 03/28/2024 7:30 AM WORKCELL OPERATOR Anesthesia Event [facility] [place] [address] Shanelle Avila, ENVIRONMENTAL SAMPLING TECHNICIAN 1 [place] [address] 03/28/2024 7:30 AM WORKCELL OPERATOR - 03/28/2024 8:48 AM WORKCELL OPERATOR Surgery [facility] [place] [address] Antwan Stone, DIEGO [address] [place] [address] REMOVAL OF HARDWARE LEFT FOOT 04/05/2024 8:30 AM WORKCELL OPERATOR Office Visit [place] Fara-O'F allon THREE [facility], [facility] [address] [place] [address] Dominick Mccloud MD Three [facility]. [facility] [address] [place] [address] Scheduled Procedures Name Priority Associated Diagnoses Date/Ti me REMOVAL PLATE SCREW OR PIN SCHED BY FAX 02/08/24 [facility] PHONE ASSESS 03/28/2024 7:30 AM WORKCELL OPERATOR documented as of this encounter Visit Diagnoses Not on filedocumented in this encounter Additional Health Concerns Assessment Noted Time PHQ-9 Depression Total Score: 0 10/26/19 22 11:07 AM CDT documented as of this encounter Care Teams Boat Rental Clerk Relationship Specialty Start Date End Date Clara Stanley APNP [address] [place] [address] PCP - General NURSE PRACTITIONER 3/19/19 Dominick Mccloud MD [facility] [address] [place] [address] [employer] Academic Coach CARDIOVASCULAR DISEASE 03/28/19 Alexis Lopez MD [address] [facility] [address] [place] [address] PULMONARY DISEASE 10/21/19 documented as of this encounter
--- OUTSIDE RECORDS SUMMARY | 2024-03-02 04:00 | XMS_ITS | Encounter Summary ---
Author Organization [facility] Address [address] [place] [address]. [place], [place] [address] [place] [address] Care Team Providers Care Hydroelectric Plant Structural Engineer Name Role Phone Clara Stanley Primary Care Provider [phone] Dominick Mccloud MD Unavailable [phone] Alexis Lopez MD Unavailable [phone] Reason for Visit * Reason Comments Image [...] 7:30 AM [facility] Hospital Encounter [facility] [place] [address] Antwan Stone, DIEGO [address], [place] [address] 03/28/2024 7:30 AM ROLL THREADER OPERATOR Anesthesia Event [facility] [address] Shanelle Avila, BULLDOZER MECHANIC [address] [place] [address] 03/28/2024 7:30 AM ROLL THREADER OPERATOR - 03/28/2024 8:48 AM ROLL THREADER OPERATOR Surgery [facility] [place] [address] Antwan Stone, DIEGO [address] [place], [place] [address] REMOVAL OF HARDWARE LEFT FOOT 04/05/2024 8:30 AM ROLL THREADER OPERATOR Office Visit [place] Fara-O'F allon THREE [facility], [facility] [address] [place] [address] Dominick Mccloud MD Three [facility]. [facility] [address] [place] [address] Scheduled Procedures Name Priority Associated Diagnoses Date/Ti me REMOVAL PLATE SCREW OR PIN SCHED BY FAX 02/08/24 JUANITOS PHONE ASSESS 03/28/2024 7:30 AM ROLL THREADER OPERATOR documented as of this encounter Procedures [...] documented as of this encounter Care Teams Hydroelectric Plant Structural Engineer Relationship Specialty Start Date End Date Clara Stanley APNP [address] [place] [address] PCP - General NURSE PRACTITIONER 06/01/18 Dominick Mccloud MD [facility] [address] [place] [address] [place] Red Mud Thickener Operator CARDIOVASCULAR DISEASE 03/28/19 Alexis Lopez MD 4600 [facility] 200 [place] [address] PULMONARY DISEASE 10/21/19 documented as of this encounter
--- OUTSIDE RECORDS SUMMARY | 2024-03-02 04:00 | XMS_ITS | Encounter Summary ---
Author Organization [facility] Address [address] [place] [address]. [place] [address] [place] [address] Care Team Providers Care Quirk Sander Name Role Phone Clara Stanley Primary Care Provider [phone] Dominick Mccloud MD Unavailable [phone] Alexis Lopez MD Unavailable [phone] Reason for Visit * Reason Comments Follow Up Encounter Details Date Type Department Care Team (Late st Contact Info) Description 12/01/2019 12:45 PM CDT Office Visit [facility] at [facility], [facility] [address] [place] [address] Antwan Milton MD [facility]. [facility] [address] [place], [place] [address] Follow Up Social History Tobacco Use Types [...] Written by the doctors and editors at [facility] What is vein disease???--??Vein disease is a [...] around, and try not to sit or network development coordinator one place for a long time ?? [...] process is complete. This topic retrieved from [employer] on: Sep 08, 2019. Topic 17068 Version 8.0 Release: 28.3.2 - C28.250 ?2019??zoojoo.BE and/or its affiliates.??All rights reserved. picture 1: Telangiectasias (spider veins) on the lower leg This is a picture of telangiectasias (spider veins), which are small veins that are swollen. These are also called hyphen webs or thread veins. Graphic 99257 Version 3.0 picture 2: Severe varicose veins This is a picture of varicose veins, which are swollen and twisted veins in the legs. Graphic 17773 Version 2.0 figure 1: Pitting edema To check for swelling, a doctor or nurse can press on the skin and then remove his or her finger. If the indent stays there, the person has swelling. Doctors call this pitting edema. Graphic 07677 Version 10.0 figure 2: Efoc-izgnsb-jlf method to put on compression stockings The tvyb-rtnwbo-ara method to put on compression stockings is [...] right-side out (as shown in C). Graphic 10890 Version 7.0 table 1: Tips for using [...] stockings can be put on using the qokg-jvwbti-hum method. The hsfm-eunvii-haz method to put on compression stockings is [...] can help you put on stockings. Graphic 47775 Version 5.0 Consumer Information Use and Disclaimer [...] that is right for you.The use of [employer] content is governed by the [employer] Terms of Use. ??2020 [employer] logo. All rights reserved. Copyright ?2020??zoo[employer]oo.BE and/or its affiliates.??All rights reserved. documented in [...] Rfl: ??? vitamin D3, cholecalciferol, 1.25 MG (84501 UT) capsule, Take 50,000 Units by mouth [...] [facility] Hospital Encounter [facility] [place] [address] Antwan Stone DPM [address] [place] [address] 03/28/2024 7:30 AM [facility] Anesthesia Event [facility] [place] [address] Shanelle Avila, VIDEO CAMERA OPERATOR [address] [place] [address] 03/28/2024 7:30 AM STIFF NECK LOADER - 03/28/2024 8:48 AM [facility] Surgery [facility] [place] [address] Antwan Stone DPM [address], [place] [address] REMOVAL OF HARDWARE LEFT FOOT 04/05/2024 8:30 AM STIFF NECK LOADER Office Visit [facility]-O'F allon THREE [facility], [facility] [address] [place] [address] Dominick Mccloud MD [facility]. [facility] [address] [place] [address] Scheduled Procedures Name Priority Associated Diagnoses Date/Ti me REMOVAL PLATE SCREW OR PIN SCHED BY FAX 02/08/24 [facility] PHONE ASSESS 03/28/2024 7:30 AM STIFF NECK LOADER documented as of this encounter Visit Diagnoses Diagnosis Varicose veins of right lower extremity with complications- Primary Painful orthopaedic hardware (CMS/HCC)- Primary documented in this encounter Care Teams Quirk Sander Relationship Specialty Start Date End Date Clara Stanley APNP [address] [place] [address] PCP - General NURSE PRACTITIONER 06/01/18 Dominick Mccloud MD [facility]. [facility] [address] [place] [address] Fely Press Pipe Inspector CARDIOVASCULAR DISEASE 03/28/19 Alexis Lopez MD 46[address] [facility] [address] [address] PULMONARY DISEASE 10/21/19 documented as of this encounter
--- OUTSIDE RECORDS SUMMARY | 2024-03-02 04:00 | XMS_ITS | Encounter Summary ---
Author Organization [facility] Address [address] [place] [address]. [place], [place] [address] [place] [address] Care Team Providers Care Pharmacy Assistant Name Role Phone Clara Stanley Primary Care Provider [phone] Dominick Mccloud MD Unavailable [phone] Alexis Lopez MD Unavailable [phone] Reason for Visit * Reason Comments Hypertension 6 mo fu Lipids Snoring/sleep Apnea Encounter Details Date Type Department Care Team (Latest Contact Info) Description 11/07/2019 10:15 AM CDT Office Visit [facility] at [facility] [address] [place], [place] [id number] Earnestine Perry, [facility] [address] [place], [place] [id number] Hypertension (6 mo fu); Lipids; Snoring/sleep Apnea [...] by the doctors and editors at [facility] What is high blood pressure???--??High blood [...] process is complete. This topic retrieved from Partly on: Sep 08, 2019. Topic 99779 Version 14.0 Release: 28.3.2 - C28.250 ?2019??[employer] and/or its affiliates.??All rights reserved. table 1: Definition of normal and high blood pressure Level Top number Bottom number High 130 or above 80 or above Elevated 120 to 129 79 or below Normal 119 or below 79 or below ?? These definitions are from the [place] [employer]/[place] [employer]. Other expert groups might use slightly different definitions. ?? Elevated blood pressure is a term doctor or nurses use as a warning. It means you do not yet have high blood pressure, but your blood pressure is not as low as it should be for good health. Graphic 34506 Version 6.0 Consumer Information Use and Disclaimer [...] that is right for you.The use of jo[employer]Pins content is governed by the Partly Terms of Use. ??2020 [employer]. All rights reserved. Copyright ?2019??[employer]. and/or its affiliates.??All rights reserved. documented in [...] and heart healthy diet. Would not recommend superintendent container terminal use of Keto diet. It is my pleasure to participate in the care of Mr. Kulkarni. He will return for follow up in 12 months, earlier if needed. DATA REVIEWED: 03/17/19 EKG personally overread: Normal sinus rhythm, left axis deviation, partial right bundle branch block. 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 He has no history of tobacco use, [...] Rfl: ??? vitamin D3, cholecalciferol, 1.25 MG (76455 UT) capsule, Take 50,000 Units by mouth [...] [facility] [address] Antwan Stone DPM [address], [place] [address] 03/28/2024 7:30 AM [facility] Anesthesia Event [facility] [address] Shanelle Avila, CONTRACT COORDINATOR 1 [place] [address] 03/28/2024 7:30 AM RESEARCH CHIEF ENGINEER - 03/28/2024 8:48 AM RESEARCH CHIEF ENGINEER Surgery [facility] [place] [address] Antwan Stone, DPM [address] [place] [address] REMOVAL OF HARDWARE LEFT FOOT 04/05/2024 8:30 AM RESEARCH CHIEF ENGINEER Office Visit [facility] THREE [facility], [facility] [address] [place] [address] Dominick Mccloud MD Three [facility]. 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 [facility] [address] [place], [place] [address] Clover Sand Mill Operator Core Sand CARDIOVASCULAR DISEASE 03/28/19 Alexis Lopez MD [address] [facility] [address] G[place] [address] [place] [address] PULMONARY DISEASE 10/21/19 documented as of this encounter
--- OUTSIDE RECORDS SUMMARY | 2024-03-02 04:00 | XMS_ITS | Encounter Summary ---
Author Organization [facility] Address [address] [place] [address]. [place], [place] [address] [place] [address] Care Team Providers Care Proof Tester Name Role Phone Clara Stanley Primary Care Provider [phone] Dominick Mccloud MD Unavailable [phone] Alexis Lopez MD Unavailable [phone] Reason for Visit * Reason Comments Hypertension yearly followup Encounter Details Date Type Department Care Team (Late st Contact Info) Description 01/23/2021 1:45 PM SCHOOL TRAFFIC SUPERVISOR Office Visit [facility] THREE [facility], [facility] [address] [place], [place] [phone] Dominick Mccloud MD Three [facility]. [facility] [address] [place], [place] [id number] Hypertension (yearly followup) Social History Tobacco Use [...] COVID-19? No / Unsure 01/23/2021 1:35 PM SCHOOL TRAFFIC SUPERVISOR documented as of this encounter Last Filed Vital Signs Vital Sign Reading Time Taken Comments Blood Pressure 138/84 01/23/2021 1:45 PM SCHOOL TRAFFIC SUPERVISOR Pulse 99 01/23/2021 1:45 PM SCHOOL TRAFFIC SUPERVISOR Temperature - - Respiratory Rate - - Oxygen Saturation 96% 01/23/2021 1:45 PM SCHOOL TRAFFIC SUPERVISOR Inhaled Oxygen Concentration - - Weight 161.9 kg (357 lb) 01/23/2021 1:45 PM SCHOOL TRAFFIC SUPERVISOR Height 190.5 cm (6' 3 ) 01/23/2021 1:45 PM SCHOOL TRAFFIC SUPERVISOR Body Mass Index 44.62 01/23/2021 1:45 PM SCHOOL TRAFFIC SUPERVISOR documented in this encounter Progress Notes [...] block. 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. He has no history of tobacco use, [...] Rfl: ??? vitamin D3, cholecalciferol, 1.25 MG (14646 UT) capsule, Take 50,000 Units by mouth [...] No ref. provider found PCP: ZEB Nunn OL TRAFFIC SUPERVISOR OL TRAFFIC SUPERVISOR documented in this encounter Plan of Treatment Upcoming Encounters Date Type Department Care Team (Late st Contact Info) Description 03/28/2024 7:30 AM SCHOOL TRAFFIC SUPERVISOR Hospital Encounter [facility] [place] [address] Antwan Stone DPM [address], [place] [address] 03/28/2024 7:30 AM SCHOOL TRAFFIC SUPERVISOR Anesthesia [place] [address] Shanelle Avila, SPLITTER HEAD 1 [place] [address] 03/28/2024 7:30 AM SCHOOL TRAFFIC SUPERVISOR - 03/28/2024 8:48 AM SCHOOL TRAFFIC SUPERVISOR [place] [address] Antwan Stone, DPM [address] [place] [address] REMOVAL OF HARDWARE LEFT FOOT 04/05/2024 8:30 AM SCHOOL TRAFFIC SUPERVISOR Office Visit [facility] THREE [facility], [facility] [address] [place] [address] Dominick Mccloud MD [facility]. [facility] [address] [place] [address] Scheduled Procedures Name Priority Associated Diagnoses Date/Ti me REMOVAL PLATE SCREW OR PIN SCHED BY FAX 02/08/24 [facility] PHONE ASSESS 03/28/2024 7:30 AM SCHOOL TRAFFIC SUPERVISOR documented as of this encounter Visit Diagnoses Diagnosis Hypertension, benign- Primary Essential hypertension, benign Mixed hyperlipidemia Painful orthopaedic hardware (CMS/HCC)- Primary documented in this encounter Additional Health Concerns Assessment Noted Time PHQ-9 Depression Total Score: 4 03/28/19 21 1:42 PM SCHOOL TRAFFIC SUPERVISOR documented as of this encounter Care Teams Proof Tester Relationship Specialty Start Date End Date Clara Stanley APNP [address] [place] [address] PCP - General NURSE PRACTITIONER 06/01/18 Dominick Mccloud MD [facility]. [facility] [address] [place] [address] Arden Product Technician CARDIOVASCULAR DISEASE 03/28/19 Alexis Lopez MD [address] [facility] [address] G[place] [place] [address] PULMONARY DISEASE 10/21/19 documented as of this encounter
--- OUTSIDE RECORDS SUMMARY | 2024-03-02 04:00 | XMS_ITS | Encounter Summary ---
Author Organization [facility] Address [address] [place] [address]. [place], [place] [address] [place] [address] Care Team Providers Care Card Assembler Name Role Phone Clara Stanley Primary Care Provider [phone] Dominick Mccloud MD Unavailable [phone] Alexis Lopez MD Unavailable [phone] Encounter Details Date Type Department Care Team [...] Coronavirus/COVID-19? No / Unsure 03/24/2022 10:37 AM VIDEO POKER FLOORMAN documented as of this encounter Plan of Treatment Upcoming Encounters Date Type Department Care Team (Late st Contact Info) Description 03/28/2024 7:30 AM VIDEO POKER FLOORMAN Hospital Encounter [facility] [place] [address] Antwan Stone, DIEGO [address] [place], [place] [address] 03/28/2024 7:30 AM VIDEO POKER FLOORMAN Anesthesia Event [facility] [address] Shanelle Avila, OBSTETRIC ANAESTHETIST 1 [place] [address] 03/28/2024 7:30 AM VIDEO POKER FLOORMAN - 03/28/2024 8:48 AM VIDEO POKER FLOORMAN [place] [address] Antwan Stone, DIEGO [address] [place], [place] [address] REMOVAL OF HARDWARE LEFT FOOT 04/05/2024 8:30 AM VIDEO POKER FLOORMAN Office Visit [facility] THREE [facility], [facility] [address] [place] [address] Dominick Mccloud MD Three [facility] [place]. [facility] [address] [place] [address] Scheduled Procedures Name Priority Associated Diagnoses Date/Ti me REMOVAL PLATE SCREW OR PIN SCHED BY FAX 02/08/24 JUANITOS PHONE ASSESS 03/28/2024 7:30 AM VIDEO POKER FLOORMAN documented as of this encounter Visit Diagnoses Not on filedocumented in this encounter Additional Health Concerns Assessment Noted Time PHQ-9 Depression Total Score: 0 10/26/19 22 11:07 AM CDT documented as of this encounter Care Teams Card Assembler Relationship Specialty Start Date End Date Clara Stanley APNP [address] [place] [address] PCP - General NURSE PRACTITIONER 06/01/18 Dominick Mccloud MD [facility] [address] [place] [address] [place] Stemmer Machine CARDIOVASCULAR DISEASE 03/28/19 Alexis Lopez MD [address] [facility] [address] [address] PULMONARY DISEASE 10/21/19 documented as of this encounter
--- OUTSIDE RECORDS SUMMARY | 2024-03-02 04:00 | XMS_ITS | Encounter Summary ---
Author Organization [facility] Address [address] [place] [address]. [place], [place] [address] [place] [address] Care Team Providers Care Chief Electrician Name Role Phone Lizeth Clara CARRINGTON Primary Care Provider [phone] Dominick Mccloud MD Unavailable [phone] Alexis Lopez MD Unavailable [phone] Reason for Referral * Imaging (Routine) - Closed Specialty Diagnoses / Procedures Referred By Contac t Referred To Contact RADIOLOGY Diagnoses PEARCE (dyspnea on exertion) Procedures NM EXER NUC STRESS TEST 2DAY NM EXER NUC STRESS TEST 1DAY Dominick Mccloud MD [facility]. [facility] [address] [place] [address] Phone: tel: fax: Referral ID Status Reason Start Date Expiration Date Visits Re quested Visits Authorized [id number] Closed 02/12/2022 05/03/2022 2 2 MOBILE BODY REPAIR SUPERVISOR Reason for Visit * Reason Comments Hypertension Yearly followup Encounter Details Date Type Department Care Team (Late st Contact Info) Description 02/12/2022 9:15 AM AUTOMOBILE BODY REPAIR SUPERVISOR Office Visit [facility], [facility] [address] [place] [address] Dominick Mccloud MD [facility]. [facility] [address] [place] [address] Hypertension (Yearly followup) Social History [...] Coronavirus/COVID-19? No / Unsure 02/12/2022 9:06 AM AUTOMOBILE BODY REPAIR SUPERVISOR documented as of this encounter Last Filed Vital Signs Vital Sign Reading Time Taken Comments Blood Pressure 132/84 02/12/2022 9:15 AM AUTOMOBILE BODY REPAIR SUPERVISOR Pulse 81 02/12/2022 9:15 AM AUTOMOBILE BODY REPAIR SUPERVISOR Temperature - - Respiratory Rate - - Oxygen Saturation 98% 02/12/2022 9:15 AM AUTOMOBILE BODY REPAIR SUPERVISOR Inhaled Oxygen Concentration - - Weight 165.6 kg (365 lb) 02/12/2022 9:15 AM AUTOMOBILE BODY REPAIR SUPERVISOR Height 190.5 cm (6' 3 ) 02/12/2022 9:15 AM AUTOMOBILE BODY REPAIR SUPERVISOR Body Mass Index 45.62 02/12/2022 9:15 AM AUTOMOBILE BODY REPAIR SUPERVISOR documented in this encounter Progress Notes [...] 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 #[id number] /TAP ASSESSMENT AND PLAN: PROBLEM LIST: 1. [...] me with any further questions or concerns. #[id number] /TAP DATA REVIEWED: 03/17/19 EKG personally overread: Normal sinus rhythm, left axis deviation, partial right bundle branch block. 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 He has no history of tobacco use, [...] Rfl: ??? vitamin D3, cholecalciferol, 1.25 MG (58946 UT) capsule, Take 50,000 Units by mouth [...] No ref. provider found PCP: ZEB Nunn MOBILE BODY REPAIR SUPERVISOR MOBILE BODY REPAIR SUPERVISOR documented in this encounter Plan of Treatment Upcoming Encounters Date Type Department Care Team (Late st Contact Info) Description 03/28/2024 7:30 AM AUTOMOBILE BODY REPAIR SUPERVISOR Hospital Encounter [facility] [place] [address] Antwan Stone, DIEGO [address] [place], [place], [place] [address] 03/28/2024 7:30 AM AUTOMOBILE BODY REPAIR SUPERVISOR Anesthesia [place] [address] Shanelle Avila, DIRECTOR CON[employer] [address] [place] [address] 03/28/2024 7:30 AM AUTOMOBILE BODY REPAIR SUPERVISOR - 03/28/2024 8:48 AM AUTOMOBILE BODY REPAIR SUPERVISOR [place] [address] Antwan Stone DPM [address] [place], [place], [place] [id number] REMOVAL OF HARDWARE LEFT FOOT 04/05/2024 8:30 AM AUTOMOBILE BODY REPAIR SUPERVISOR Office Visit [facility], [address] [address] Dominick Mccloud MD [facility] [address] [facility] [address] [place] [address] Scheduled Procedures Name Priority Associated Diagnoses Date/Ti me REMOVAL PLATE SCREW OR PIN SCHED BY FAX 02/08/24 [facility] PHONE ASSESS 03/28/2024 7:30 AM AUTOMOBILE BODY REPAIR SUPERVISOR documented as of this encounter Results * NM EXER NUC STRESS TEST 2DAY (03/24/2022 1:46 PM AUTOMOBILE BODY REPAIR SUPERVISOR) Anatomical Region Laterality Modality Cardiac Nuclear Medicine 03/24/2022 11:4 6 AM AUTOMOBILE BODY REPAIR SUPERVISOR Narrative 03/24/2022 1:32 PM AUTOMOBILE BODY REPAIR SUPERVISOR ? Myocardial Perfusion Imaging ? Pat.Name: ??MP BULLOCK.ID: ?[id number] ? St.Date: ?? 03/24/2022 ?Refer.MD: ??H. Lizeth ? Exam Time: 11:46:00 AM ? Study Type:GUME NC HT MUSCLE IMAGE SPECT MULTI Height: ?75 in ? Weight: ?360 lb ? BSA: ? 2.82 m2 ?Age: ??1965,56Y ? Sex: ? M ? Sonogrphr: Per Jones, CLASSROOM ASSISTANT ? Pat. Stat.:Outpatient ? Reason for Study:Shortness [...] % ?Max BP: ?192/90 Max RPP: ?? 22029 ? O2 sat: ?100 % Symptoms and Complications: Terminated: Shortness of breath Symptoms: ??Shortness of breath Complications: None Stress ECG Interp: No ischemic changes <Signed> 03/24/2022 12:26 PM Dominick Mccloud M.D. Stress interpretation <Electronic Signature> 03/24/2022 01:32 PM Kamala Gomez M.D. Nuclear interpretation Procedure Note Kamala Gomez MD - 03/24/2022 Myocardial Perfusion Imaging Pat.Name: MP BULLOCK.ID: [id number] .Date: 03/24/2022 Refer.MD: Les Stanley Exam Time: 11:46:00 AM Study Type:GUME NC HT MUSCLE IMAGE SPECT MULTI Height: 75 in Weight: 360 lb BSA: 2.82 m2 Age: 2 1965,56Y Sex: M Sonogrphr: Per Jones [facility] Pat. Stat.:Outpatient Reason for Study:Shortness of breath [...] 87 % Max BP: 192/90 Max RPP: 34289 O2 sat: 100 % Symptoms and Complications: [...] abnormality BMI 40.0-44.9, adult ([facility]) Body Mass Index 40.0-44.9, adult LEONOR (obstructive sleep apnea) Obstructive sleep apnea (adult) (pediatric) Snoring Other dyspnea and respiratory abnormality Lung mass Swelling, mass, or lump in chest Morbid obesity ([facility]) Morbid obesity Insomnia Insomnia, unspecified Painful orthopaedic hardware ([facility])- Primary documented in this encounter Additional Health Concerns Assessment Noted Time PHQ-9 Depression Total Score: 0 10/26/19 22 11:07 AM CDT documented as of this encounter Care Teams Chief Electrician Relationship Specialty Start Date End Date Clara Stanley APNP [address] [place] [address] PCP - General NURSE PRACTITIONER 06/01/18 Dominick Mccloud MD [address] [address] Fely Continuous Linter Drier Operator CARDIOVASCULAR DISEASE 03/28/19 Alexis Lopez MD [address] [facility] [address] G[place] [address] [place] [address] PULMONARY DISEASE 10/21/19 documented as of this encounter
--- OUTSIDE RECORDS SUMMARY | 2024-03-02 04:00 | XMS_ITS | Encounter Summary ---
Author Organization [facility] Address [address] [place] [address]. [place], [place] [address] [place] [address] Care Team Providers Care Process Control Engineer Name Role Phone Clara Stanley Primary Care Provider [phone] Dominick Mccloud MD Unavailable [phone] Alexis Lopez MD Unavailable [phone] Encounter Details Date Type Department Care Team (Late st Contact Info) Description 02/18/[address] [facility] [place], [place] [address] Scanned, [facility] Social History Tobacco Use Types Packs/Day [...] Coronavirus/COVID-19? No / Unsure 02/12/2022 9:06 AM ACID BLEACHER documented as of this encounter Plan of Treatment Upcoming Encounters Date Type Department Care Team (Late st Contact Info) Description 03/28/2024 7:30 AM ACID BLEACHER Hospital Encounter [facility] [place] [address] Antwan Stone, DIEGO [address], [place] [address] 03/28/2024 7:30 AM ACID BLEACHER Anesthesia Event [facility] [place] [address] Shanelle Avila, HARDWOOD SAWYER [address] [facility] [place] [address] 03/28/2024 7:30 AM ACID BLEACHER - 03/28/2024 8:48 AM ACID BLEACHER Surgery [place] [address] Antwan Stone, DIEGO [address], [place] [address] REMOVAL OF HARDWARE LEFT FOOT 04/05/2024 8:30 AM ACID BLEACHER Office Visit [facility] THREE [facility], [facility] [address] [place] [address] Dominick Mccloud MD Three [facility] [address] [place] [address] Scheduled Procedures Name Priority Associated Diagnoses Date/Ti me REMOVAL PLATE SCREW OR PIN SCHED BY FAX 02/08/24 KAYLIE PHONE ASSESS 03/28/2024 7:30 AM ACID BLEACHER documented as of this encounter Visit Diagnoses Not on filedocumented in this encounter Additional Health Concerns Assessment Noted Time PHQ-9 Depression Total Score: 0 08/12/20 22 11:07 AM CDT documented as of this encounter Care Teams Process Control Engineer Relationship Specialty Start Date End Date Clara Stanley APNP [facility]1 [place] [address] PCP - General NURSE PRACTITIONER 06/01/18 Dominick Mccloud MD [address] [address] [place] Pigment Presser CARDIOVASCULAR DISEASE 03/28/19 Alexis Lopez MD [address] [address] PULMONARY DISEASE 10/21/19 documented as of this encounter
--- OUTSIDE RECORDS SUMMARY | 2024-03-02 04:00 | XMS_ITS | Encounter Summary ---
Author Organization [facility] Address [address] [place] [address]. [place], [place] [address] [place] [address] Care Team Providers Care Ruby On Rails Software Developer Name Role Phone Clara Stanley Primary Care Provider [phone] Dominick Mccloud MD Unavailable [phone] Alexis Lopez MD Unavailable [phone] Encounter Details Date Type Department Care Team [...] Coronavirus/COVID-19? No / Unsure 03/21/2022 6:06 AM AUTOMOTIVE TECHNICIAN INSTRUCTOR documented as of this encounter Plan of Treatment Upcoming Encounters Date Type Department Care Team (Late st Contact Info) Description 03/28/2024 7:30 AM AUTOMOTIVE TECHNICIAN INSTRUCTOR Hospital Encounter [facility] [place] [address] Antwan Stone, DIEGO [address] [place], [place] [address] 03/28/2024 7:30 AM AUTOMOTIVE TECHNICIAN INSTRUCTOR Anesthesia [place] [address] Shanelle Avila, [employer] [address] [place] [address] 03/28/2024 7:30 AM AUTOMOTIVE TECHNICIAN INSTRUCTOR - 03/28/2024 8:48 AM AUTOMOTIVE TECHNICIAN INSTRUCTOR [place] [address] Antwan Stone, DIEGO [address], [place] [address] REMOVAL OF HARDWARE LEFT FOOT 04/05/2024 8:30 AM AUTOMOTIVE TECHNICIAN INSTRUCTOR Office Visit [facility] Chaudhari-O'F allon THREE [facility], [facility] [address] [place] [address] Dominick Mccloud MD Three [facility]. [facility] [address] [place] [address] Scheduled Procedures Name Priority Associated Diagnoses Date/Ti me REMOVAL PLATE SCREW OR PIN SCHED BY FAX 02/08/24 JUANITOS PHONE ASSESS 03/28/2024 7:30 AM AUTOMOTIVE TECHNICIAN INSTRUCTOR documented as of this encounter Visit Diagnoses Not on filedocumented in this encounter Additional Health Concerns Assessment Noted Time PHQ-9 Depression Total Score: 0 10/26/19 22 11:07 AM CDT documented as of this encounter Care Teams Ruby On Rails Software Developer Relationship Specialty Start Date End Date Clara Stanley APNP [address] [place] [address] PCP - General NURSE PRACTITIONER 06/01/18 Dominick Mccloud MD [facility] [address] [place] [address] [place] Fluorescent Lighting Model Maker CARDIOVASCULAR DISEASE 03/28/19 Alexis Lopez MD [address] [facility] [address] [address] PULMONARY DISEASE 10/21/19 documented as of this encounter
--- OUTSIDE RECORDS SUMMARY | 2024-03-02 04:00 | XMS_ITS | Encounter Summary ---
Author Organization [facility] Address [address] [place] [address]. [place], [place] [address] [place] [address] Care Team Providers Care Log Processor Operator Name Role Phone Clara Stanley Primary Care Provider [phone] Dominick Mccloud MD Unavailable [phone] Alexis Lopez MD Unavailable [phone] Encounter Details Date Type Department Care [...] Coronavirus/COVID-19? No / Unsure 02/12/2022 9:06 AM PRESSED OR BLOWN GLASS WORKER documented as of this encounter Plan of Treatment Upcoming Encounters Date Type Department Care Team (Late st Contact Info) Description 03/28/2024 7:30 AM PRESSED OR BLOWN GLASS WORKER Hospital Encounter [facility] [place] [address] Antwan Stone, DIEGO [address], [place] [address] 03/28/2024 7:30 AM PRESSED OR BLOWN GLASS WORKER Anesthesia [place] [address] Shanelle Avila, REVENUE AUDIT CLERK [address] [place] [address] 03/28/2024 7:30 AM PRESSED OR BLOWN GLASS WORKER - 03/28/2024 8:48 AM PRESSED OR BLOWN GLASS WORKER Surgery [place] [address] Antwan Stone, DIEGO [address], [place] [address] REMOVAL OF HARDWARE LEFT FOOT 04/05/2024 8:30 AM PRESSED OR BLOWN GLASS WORKER Office Visit Darren Chaudhari-O'F allon THREE [facility], [facility] [address] [place] [address] Dominick Mccloud MD Three [facility]. [facility] [address] [place] [address] Scheduled Procedures Name Priority Associated Diagnoses Date/Ti me REMOVAL PLATE SCREW OR PIN SCHED BY FAX 02/08/24 JUANITOS PHONE ASSESS 03/28/2024 7:30 AM PRESSED OR BLOWN GLASS WORKER documented as of this encounter Visit Diagnoses Not on filedocumented in this encounter Additional Health Concerns Assessment Noted Time PHQ-9 Depression Total Score: 0 10/26/19 22 11:07 AM CDT documented as of this encounter Care Teams Log Processor Operator Relationship Specialty Start Date End Date Clara Stanley APNP [address] [place] [address] PCP - General NURSE PRACTITIONER 06/01/18 Dominick Mccloud MD [facility] [address] [place] [address] Hickman Chemotherapist CARDIOVASCULAR DISEASE 03/28/19 Alexis Lopez MD [address] [facility] [address] [address] PULMONARY DISEASE 10/21/19 documented as of this encounter
--- OUTSIDE RECORDS SUMMARY | 2024-03-02 04:01 | XMS_ITS | Encounter Summary ---
Author Organization [facility] Address [address] [place] [address]. [place], [place] [address] [place] [address] Care Team Providers Care Doctor Of Podiatric Medicine Name Role Phone Clara Stanley Primary Care Provider [phone] Dominick Mccloud MD Unavailable [phone] Encounter Details Date Type Department Care [...] st Contact Info) Description 03/28/2024 7:30 AM PAVING RAMMER Hospital Encounter [facility] [place] [address] Antwan Stone DPM [address], [place] [address] 03/28/2024 7:30 AM PAVING RAMMER Anesthesia [place] [address] Shanelle Avila, MEASUREMENT SUPERVISOR [address] [place] [address] 03/28/2024 7:30 AM PAVING RAMMER - 03/28/2024 8:48 AM PAVING RAMMER Surgery [place] [address] Antwan Stone, DPÁngel [address], [place] [address] REMOVAL OF HARDWARE LEFT FOOT 04/05/2024 8:30 AM PAVING RAMMER Office Visit Darren Cardiovascular-O'F allon THREE [facility], [facility] [address] [place] [address] Dominick Mccloud MD Three [facility]. [facility] [address] [place], [place] [address] Scheduled Procedures Name Priority Associated Diagnoses Date/Ti me REMOVAL PLATE SCREW OR PIN SCHED BY FAX 02/08/24 [facility] PHONE ASSESS 03/28/2024 7:30 AM PAVING RAMMER documented as of this encounter Visit Diagnoses Not on filedocumented in this encounter Care Teams Doctor Of Podiatric Medicine Relationship Specialty Start Date End Date Clara Stanley APNP [address] [place] [address] PCP - General NURSE PRACTITIONER 06/01/18 Dominick Mccloud MD Three [facility]. [facility] [address] [place], [place] [address] [employer] Manufacturing Coordinator CARDIOVASCULAR DISEASE 03/28/19 documented as of this encounter
--- OUTSIDE RECORDS SUMMARY | 2024-03-02 04:01 | XMS_ITS | Encounter Summary ---
Author Organization [facility] Address [address] [place] [address]. [place], [place] [address] [place] [address] Care Team Providers Care Culinary Arts Teacher Name Role Phone Clara Stanley Primary Care Provider [phone] Dominick Mccloud MD Unavailable [phone] Reason for Visit * Reason Onset Date Comments Pain 05/02/2019 Encounter Details Date Type Department Care Team (Late st Contact Info) Description 05/02/2019 Telephone [facility] Medical Group Family & Internal Medicine [facility] [address] [place] [address] Clara Stanley APNP [address] [place] [address] Pain Social History Tobacco Use [...] Spoke to patient's , Faith; verbalized understanding. INE EGG WASHER * ZEB Nunn - 05/02/2019 5:32 PM CST Let pt know to go ahead and have the PET scan tomorrow, let's see what that shows and then maybe wecan proceed with a L-spine or T-spine MRI. ---to see if maybe a back problem is causing these symptoms. INE EGG WASHER * Estrellita Chi MA - 05/02/2019 2:14 PM CST Per Anna this is the same pain that he has been having. Wanting to know what else can be done. States that he I having a PET scan tomorrow for the lung nodules. INE EGG WASHER * ZEB Nunn - 05/02/2019 1:00 PM CST Is this the same pain he has been having for the past several weeks? If so---too late to treat for shingles anyway. Would think that the rash would have manifested by now. INE EGG WASHER * Cris Yusuf - 05/02/2019 10:17 AM [...] could try to treat for shingles? Uses [employer] raul grand listed INE EGG WASHER documented in this encounter Plan of Treatment Upcoming Encounters Date Type Department Care Team (Late st Contact Info) Description 03/28/2024 7:30 AM MACHINE EGG WASHER Hospital Encounter [facility] [place] [address] Antwan Stone, DPM [address], [place] [address] 03/28/2024 7:30 AM MACHINE EGG WASHER Anesthesia [place] [address] Shanelle Avila, RAAENN [address] [place] [address] 03/28/2024 7:30 AM MACHINE EGG WASHER - 03/28/2024 8:48 AM MACHINE EGG WASHER Surgery [place] [address] Antwan Stone, DIEGO [address] [place], [place] [address] REMOVAL OF HARDWARE LEFT FOOT 04/05/2024 8:30 AM MACHINE EGG WASHER Office Visit Darren Cardiovascular-O'F allon THREE [facility], [facility] [address] [place] [address] Dominick Mccloud MD Three [facility]. [facility] [address] [place] [address] Scheduled Procedures Name Priority Associated Diagnoses Date/Ti me REMOVAL PLATE SCREW OR PIN SCHED BY FAX 02/08/24 [facility] PHONE ASSESS 03/28/2024 7:30 AM MACHINE EGG WASHER documented as of this encounter Visit Diagnoses Not on filedocumented in this encounter Care Teams Culinary Arts Teacher Relationship Specialty Start Date End Date Clara Stanley APNP [address] [place] [address] PCP - General NURSE PRACTITIONER 06/01/18 Dominick Mccloud MD [facility]. [facility] [address] [place] [address] Fely Tunnel Miner CARDIOVASCULAR DISEASE 03/28/19 documented as of this encounter
--- OUTSIDE RECORDS SUMMARY | 2024-03-02 04:01 | XMS_ITS | Encounter Summary ---
Author Organization [facility] Address [address] [place] [address]. [place], [place] [address] [place] [address] Care Team Providers Care Java Android Developer Name Role Phone Clara Stanley Primary Care Provider [phone] Dominick Mccloud MD Unavailable [phone] Reason for Visit * Reason Comments Abdominal Pain Encounter Details Date Type Department Care Team (Late st Contact Info) Description 04/09/2019 3:42 PM SHAFTING WORKER - 04/09/2019 6:48 PM SHAFTING WORKER Emergency [facility] [place] [address] Luis Dasilva MD Abdominal Pain Discharge Disposition: [...] Comments Blood Pressure 123/77 04/09/2019 5:30 PM SHAFTING WORKER Pulse 84 04/09/2019 5:30 PM SHAFTING WORKER Temperature 36.6 ??C (97.9 ??F) 04/09/2019 2:57 PM CS T Respiratory Rate 16 04/09/2019 5:30 PM SHAFTING WORKER Oxygen Saturation 99% 04/09/2019 5:30 PM SHAFTING WORKER Inhaled Oxygen Concentration - - Weight 160.8 kg (354 lb 8 oz) 04/09/2019 2:57 PM SHAFTING WORKER Height 190.5 cm (6' 3 ) 04/09/2019 2:57 PM SHAFTING WORKER Body Mass Index 44.31 04/09/2019 2:57 PM SHAFTING WORKER documented in this encounter Discharge Instructions * Discharge Instructions* Luis Dasilva MD - 04/09/2019 6:03 PM SHAFTING WORKER Return for increasing abdominal pain, inability to hold down fluids or other problems or concerns. TING WORKER * Attachments The following attachments cannot be sent through Care Everywhere. * Severe Abdominal Pain Discharge Instructions, Adult (Citizen Of [place]) documented in this encounter Medications at Time [...] CLEAN CATCH COLOR YELLOW TRANSPARENCY CLOUDY Specific [place] (U) 1.012 1.001 - 1.030 U PH 6.0 5.0 - 9.0 LEUKOCYTE ESTERASE NEGATIVE NEGATIVE NITRITES NEGATIVE NEGATIVE PROTEIN, URINE NEGATIVE <30 MG/DL URINE GLUCOSE NEGATIVE NEGATIVE MG/DL U KETONES NEGATIVE NEGATIVE MG/DL UROBILINOGEN NEGATIVE NEGATIVE MG/DL Urine Bilirubin NEGATIVE NEGATIVE MG/DL BLOOD NEGATIVE NEGATIVE CULTURE & SENSITIVITY INDICATED? CULTURE IS NOT INDICATED IMAGING STUDIES XR ABD KUB Final Result by User, [id number] (04/09 7376) Examination: XR ABD KUB Exam time: 04/09/2019 [...] (Primary) Disposition: Discharge Luis Dasilva MD 04/09/19 2004 TING WORKER * Matteo Krishnamurthy PA-C - 04/09/2019 3:46 PM CST [place] EMERGENCY DEPARTMENT ENCOUNTER Medical Screening Examination [...] Luis Dasilva MD at 04/09/2019 6:15 PM SHAFTING WORKER TING WORKER TING WORKER * Shanelle Morales RN - 04/09/2019 3:06 PM CST Pt presents to ED after having abdominal ultrasound for persistent abdominal pain over the last 1-2weeks. Pt reports having severe headaches in early February 2019 and was hospitalized at [facility] in [facility] with Idiopathic Intracranial Hypertension and aseptic [...] worse at night. Also reports mild diarrhea. TING WORKER documented in this encounter Plan of Treatment Upcoming Encounters Date Type Department Care Team (Late st Contact Info) Description 03/28/2024 7:30 AM SHAFTING WORKER Hospital Encounter [place] [address] Antwan Stone, DIEGO [address], [place] [address] 03/28/2024 7:30 AM SHAFTING WORKER [place] [address] Shanelle Avila, MANAGER SUPPLY CHAIN [address] [place] [address] 03/28/2024 7:30 AM SHAFTING WORKER - 03/28/2024 8:48 AM SHAFTING WORKER [place] [address] Antwan Stone, DIEGO [address], [place] [address] REMOVAL OF HARDWARE LEFT FOOT 04/05/2024 8:30 AM SHAFTING WORKER Office Visit Darren Chaudhari-O'F allon THREE [facility], [facility] [address] [place] [address] Dominick Mccloud MD Three [facility]. [facility] [address] [place] [address] Scheduled Procedures Name Priority Associated Diagnoses Date/Ti me REMOVAL PLATE SCREW OR PIN SCHED BY FAX 02/08/24 [facility] PHONE ASSESS 03/28/2024 7:30 AM SHAFTING WORKER documented as of this encounter Procedures Procedure Name Priority Date/Time Associated Diagnosis Comments XR ABD KUB STAT 04/09/2019 4:32 PM SHAFTING WORKER COMPREHENSIVE METABOLIC PANEL STAT 04/09/2019 4:14 PM SHAFTING WORKER CBC W/DIFF AUTOMATED STAT 04/09/2019 4:14 PM SHAFTING WORKER LIPASE STAT 04/09/2019 4:14 PM SHAFTING WORKER URINALYSIS STAT 04/09/2019 4:13 PM SHAFTING WORKER documented in this encounter Results * XR ABD KUB (04/09/2019 4:32 PM SHAFTING WORKER) Anatomical Region Laterality Modality Abdomen Radiographic Trang ging 04/09/2019 4:35 PM SHAFTING WORKER Impressions 04/09/2019 4:36 PM SHAFTING WORKER IMPRESSION: Nonobstructive bowel gas pattern. No evidence of significant colonic stool burden. Narrative 04/09/2019 4:36 PM SHAFTING WORKER Examination: XR ABD KUB Exam time: 04/09/2019 [...] Final Result * LIPASE (04/09/2019 4:14 PM SHAFTING WORKER) LIPASE 128 73 - 393 UNITS/L 04/09/2019 5:[address] [facility] 04/09/2019 4:14 PM SHAFTING WORKER Matteo Krishnamurthy PA-C LABORATORY Final Result [facility] [address] [place] [address], [place] [phone] * (ABNORMAL) COMPREHENSIVE METABOLIC PANEL (04/09/2019 4:14 PM SHAFTING WORKER) GLUCOSE 95 70 - 99 MG/DL 04/09/2019 5:[address] [facility] BUN 10 7 - 18 MG/DL 04/09/2019 5:[address] [facility] CREATININE S/P/B 0.86 0.7 - 1.3 MG/DL 04/09/2019 5:[address] [facility] SODIUM S/P/B 137 136 - 145 MMOL/L 04/09/2019 5:[address] [facility] POTASSIUM S/P/B 3.9 3.5 - 5.1 MMOL/L 04/09/2019 5:[address] [facility] CHLORIDE S/P/B 106 100 - 108 MMOL/L 04/09/2019 5:[address] [facility] CO2 24.2 21 - 32 MMOL/L 04/09/2019 5:[address] [facility] CALCIUM S/P/B 9.5 8.5 - 10.1 MG/DL 04/09/2019 5:[address] [facility] BILIRUBIN TOTAL S/P/B 0.5 0.2 - 1.2 MG/DL 04/09/2019 5:[address] [facility] TOTAL PROTEIN S/P/B 8.4(H) 6.4 - 8.2 G/DL 04/09/2019 5:[address] [facility] ALBUMIN S/P/B 4.2 3.4 - 5.0 G/DL 04/09/2019 5:[address] [facility] AST 19 15 - 37 U/L 04/09/2019 5:[address] [facility] ALT 31 16 - 60 U/L 04/09/2019 5:[address] [facility] ALKALINE PHOSPHATASE S/P/B 82 50 - 136 U/L 04/09/2019 5:[address] [facility] ANION GAP 6.8 5 - 15 MMOL/L 04/09/2019 5:[address] [facility] BUN CREATININE RATIO 11.6 6 - 26 04/09/2019 5:[address] [facility] A/G RATIO 1.0 1.0 - 2.0 RATIO 04/09/2019 5:[address] [facility] EGFR NON-AFR. AMER. >90 >90 ML/MIN/1.7 3 M2 04/09/2019 5:[address] [facility] EGFR AFR. AMER. >90 >90 ML/MIN/1.7 3 M2 04/09/2019 5:[address] [facility] Comment: NOTE: eGFR is not calculated for patients <18 years of age. This is an estimated GFR (CKD EPI) and should not be used for calculating drug doses. 04/09/2019 4:14 PM SHAFTING WORKER Matteo Krishnamurthy PA-C LABORATORY Final Result [facility] [address] [place] [address], [place] [phone] * (ABNORMAL) CBC W/DIFF AUTOMATED (04/09/2019 4:14 PM SHAFTING WORKER) [facility] WBC 10.8 4.5 - 11.0 x10'3/uL 04/09/2019 4:[address] [facility] RBC 5.07 4.70 - 6.10 x10'6/uL 04/09/2019 4:[address] [facility] HGB 14.2 14.0 - 18.0 G/DL 04/09/2019 4:[address] [facility] HCT 43.6 43.0 - 54.0 % 04/09/2019 4:[address] [facility] MCV 86.0 80.0 - 94.0 FL 04/09/2019 4:[address] [facility] MCH 28.0 27.0 - 31.0 PG 04/09/2019 4:[address] [facility] MCHC 32.6 32.0 - 36.0 G/DL 04/09/2019 4:[address] [facility] RDW 13.1 11.5 - 14.5 % 04/09/2019 4:[address] [facility] PLT 302 130 - 400 x10'3/uL 04/09/2019 4:[address] [facility] MPV 11.1 9.3 - 12.2 FL 04/09/2019 4:[address] [facility] DIFFERENTIAL TYPE AUTOMATED DIFFERENTIAL 04/09/2019 4:[address] [facility] NEUTROPHILS % 71.7 % 04/09/2019 4:[address] [facility] LYMPHOCYTES % 15.2 % 04/09/2019 4:[address] [facility] MONOCYTES % 8.9 % 04/09/2019 4:[address] [facility] EOSINOPHILS 3.0 % 04/09/2019 4:[address] [facility] BASOPHILS 0.6 % 04/09/2019 4:[address] [facility] IMMATURE GRANS % 0.6 % 04/09/19 20 4:[address] [facility] ABS. NEUTROPHILS TOTAL 7.74(H) 1.80 - 7.70 x10'3/uL 04/09/2019 4:[address] [facility] ABS. LYMPHOCYTES 1.64 1.00 - 4.80 x10'3/uL 04/09/2019 4:[address] [facility] ABS. MONOCYTES 0.96(H) 0.30 - 0.82 x10'3/uL 04/09/2019 4:[address] [facility] ABS. EOSINOPHILS 0.32 0.04 - 0.54 x10'3/uL 04/09/2019 4:[address] [facility] ABS. BASOPHILS 0.06 0.01 - 0.08 x10'3/uL 04/09/2019 4:[address] [facility] ABS. IMMATURE GRANULOCYTES 0.06 0.00 - 0.49 x10'3/uL 04/09/2019 4:[address] [facility] 04/09/2019 4:14 PM SHAFTING WORKER Matteo Krishnamurthy PA-C LABORATORY Final Result [facility] [address] [place] [address], * URINALYSIS (04/09/2019 4:13 PM SHAFTING WORKER) SPECIMEN TYPE URINE CLEAN CATCH 04/09/2019 4:13 PM SHAFTING WORKER [facility] COLOR (U) YELLOW 04/09/2019 4:32 PM SHAFTING WORKER [facility] TRANSPARENCY CLOUDY 04/09/2019 4:[address] [facility] SPECIFIC GRAVITY (U) 1.012 1.001 - 1.030 04/09/2019 4:32 PM SHAFTING WORKER [facility] U PH 6.0 5.0 - 9.0 04/09/2019 4:32 PM SHAFTING WORKER [facility] LEUKOCYTES (U) NEGATIVE NEGATIVE 04/09/2019 4:[address] [facility] NITRITES NEGATIVE NEGATIVE 04/09/2019 4:[address] [facility] PROTEIN (U) NEGATIVE <30 MG/DL 04/09/2019 4:[address] [facility] URINE GLUCOSE NEGATIVE NEGATIVE MG/DL 04/09/2019 4:[address] [facility] KETONES MG/DL (U) NEGATIVE NEGATIVE MG/DL 04/09/2019 4:[address] [facility] UROBILINOGEN NEGATIVE NEGATIVE MG/DL 04/09/2019 4:[address] [facility] BILIRUBIN (U) NEGATIVE NEGATIVE MG/DL 04/09/2019 4:[address] [facility] BLOOD (U) NEGATIVE NEGATIVE 04/09/2019 4:[address] [facility] CULTURE & SENSITIVITY INDICATED? CULTURE IS NOT INDICATED 04/09/2019 4:[address] [facility] URINE SPECIMEN OBTAINED BY CLEAN CATCH PROCEDURE / Unknown 04/09/2019 4:13 PM SHAFTING WORKER us Matteo Krishnamurthy PA-C URINE ORDERABLES Final Result [facility] [address] [place] [address], documented in this encounter Visit Diagnoses Diagnosis Generalized abdominal pain- Primary Abdominal pain, generalized Painful orthopaedic hardware (CMS/HCC)- Primary documented in this encounter Administered Medications Inactive Administered Medications - up to 3 most recent administrations Medication Order MAR Action Action Date Dose Rate Site dicyclomine (BENTYL) tablet 20 mg 20 mg, Oral, Once, 1 dose, On 04/09/19 at 1715 Given 04/09/2019 5:15 PM SHAFTING WORKER 20 mg sodium chloride 0.9% bolus infusion SOLN 1,000 mL 1,000 mL, Intravenous, Administer over 15 Minutes, Once, 1 dose, On 04/09/19 at 1600 New Bag 04/09/2019 5:09 PM SHAFTING WORKER 1,000 mLs documented in this encounter Active and Recently Administered Medications Times are shown in SHAFTING WORKER. Scheduled Medication Order 04/07/2019 04/08/2019 04/09/2019 dicyclomine [...] RN) documented in this encounter Care Teams Java Android Developer Relationship Specialty Start Date End Date Clara Stanley APNP [address] [place] [address] [id number] PCP - General NURSE PRACTITIONER 06/01/18 Dominick Mccloud MD [place] [id number] [place] [address] Fely Gin Inspector CARDIOVASCULAR DISEASE 03/28/19 documented as of this encounter
--- OUTSIDE RECORDS SUMMARY | 2024-03-02 04:01 | XMS_ITS | Encounter Summary ---
Author Organization [facility] Address [address] [place] [address]. [place], [place] [address] [place] [address] Care Team Providers Care Oil Pit Attendant Name Role Phone Clara Stanley Primary Care Provider [phone] Dominick Mccloud MD Unavailable [phone] Reason for Visit * Reason Comments [...] (Late Contact Info) Description 03/28/2024 7:30 AM [facility] Hospital Encounter [facility] [place] [address] Antwan Stone DPM [address] [place] [address] 03/28/2024 7:30 AM WRAP YARN SORTER Anesthesia Event [place] [address] Shanelle Avila, UNIVERSITY ARCHIVIST [address] [place] [address] 03/28/2024 7:30 AM WRAP YARN SORTER - 03/28/2024 8:48 AM WRAP YARN SORTER Surgery [place] [address] Antwan Stone, DPM [address], [place] [address] REMOVAL OF HARDWARE LEFT FOOT 04/05/2024 8:30 AM WRAP YARN SORTER Office Visit Darren Chaudhari-O'F allon THREE [facility], [facility] [address] [place], [place] [address] Dominick Mccloud MD Three [facility]. [facility] [address] [place], [place] [phone] Scheduled Procedures Name Priority Associated Diagnoses Date/Ti me REMOVAL PLATE SCREW OR PIN SCHED BY FAX 02/08/24 [facility] PHONE ASSESS 03/28/2024 7:30 AM WRAP YARN SORTER documented as of this encounter Procedures Procedure Name Priority Date/Time Associated Diagnosis Comments PATHOLOGY GENERIC (SCAN ORDER) Routine 05/26/2019 documented in this encounter Results * PATHOLOGY (05/26/2019) 05/26/2019 us Documents Scanned SCANNING Edited Result - Final [facility] ON[facility] documented in this encounter Visit Diagnoses Not on filedocumented in this encounter Care Teams Oil Pit Attendant Relationship Specialty Start Date End Date Clara Stanley APNP [address] [place] [address] PCP - General NURSE PRACTITIONER 06/01/18 Dominick Mccloud MD [facility] [address] [place] [address] [place] Efficiency Engineer CARDIOVASCULAR DISEASE 03/28/19 documented as of this encounter
--- OUTSIDE RECORDS SUMMARY | 2024-03-02 04:01 | XMS_ITS | Encounter Summary ---
Author Organization [facility] Address [address] [place] [address]. [place], [place] [address] [place] [address] Care Team Providers Care Fixture Fabricator Repairer Name Role Phone Clara Stanley Primary Care Provider [phone] Dominick Mccloud MD Unavailable [phone] Encounter Details Date Type Department Care [...] st Contact Info) Description 03/28/2024 7:30 AM SALES ACCOUNT LEADER Hospital Encounter [facility] [place] [address] Antwan Stone DPM [address], [place] [address] 03/28/2024 7:30 AM SALES ACCOUNT LEADER Anesthesia [place] [address] Shanelle Avila, MANAGER QUALITY [address] [place] [address] 03/28/2024 7:30 AM SALES ACCOUNT LEADER - 03/28/2024 8:48 AM SALES ACCOUNT LEADER Surgery [place] [address] Antwan Stone, DPÁngel [address], [place] [address] REMOVAL OF HARDWARE LEFT FOOT 04/05/2024 8:30 AM SALES ACCOUNT LEADER Office Visit [facility] Cardiovascular-O'F allon THREE [facility], [facility] [address] [place] [address] Dominick Mccloud MD Three [facility]. [facility] [address] [place], [place] [address] Scheduled Procedures Name Priority Associated Diagnoses Date/Ti me REMOVAL PLATE SCREW OR PIN SCHED BY FAX 02/08/24 [facility] PHONE ASSESS 03/28/2024 7:30 AM SALES ACCOUNT LEADER documented as of this encounter Visit Diagnoses Not on filedocumented in this encounter Care Teams Fixture Fabricator Repairer Relationship Specialty Start Date End Date Clara Stanley APNP [address] [place] [address] PCP - General NURSE PRACTITIONER 06/01/18 Dominick Mccloud MD Three [facility]. [facility] [address] [place], [place] [address] [place] [employer] Former CARDIOVASCULAR DISEASE 03/28/19 documented as of this encounter
--- OUTSIDE RECORDS SUMMARY | 2024-03-02 04:01 | XMS_ITS | Encounter Summary ---
Author Organization [facility] Address [address] [place] [address]. [place], [place] [address] [place] [address] Care Team Providers Care Aeronautical Engineering Professor Name Role Phone Clara Stanley Primary Care Provider [phone] Dominick Mccloud MD Unavailable [phone] Reason for Visit * Reason Onset Date Comments Referral 04/11/2019 GI Encounter Details Date Type Department Care Team (Late st Contact Info) Description 04/11/2019 Telephone [facility] Medical Group Family & Internal Medicine [facility] [address] [place] [address] Clara Stanley APNP [address] [place] [address] Referral (GI) Social History Tobacco [...] Spoke with , questions asked and answered S MANAGER * Mariangel Padilla, BRONSON - 04/11/2019 12:13 PM CST Patient's , Anna, calling asking to speak to Jadyn. She would like a callback to see if you had any luck getting patient a sooner appt with [place]? Please call back. I didn't see anything in chart to tell her. S MANAGER documented in this encounter Plan of Treatment Upcoming Encounters Date Type Department Care Team (Late st Contact Info) Description 03/28/2024 7:30 AM GAMES MANAGER Hospital Encounter [facility] [place] [address] Antwan Stone DPM [address], [place], [place] [address] 03/28/2024 7:30 AM GAMES MANAGER Anesthesia Event [facility] OR [place], [place] [id number] Shanelle Avila, GANG LEADER [address] [place] [address] 03/28/2024 7:30 AM GAMES MANAGER - 03/28/2024 8:48 AM GAMES MANAGER Surgery [place] [address] Antwan Stone DPM [address], [place], [place] [address] REMOVAL OF HARDWARE LEFT FOOT 04/05/2024 8:30 AM GAMES MANAGER Office Visit [facility] Ch[facility]-O'F allon THREE [facility], [address] [address] Dominick Mccloud MD [facility]. [facility] [address] [place] [address] Scheduled Procedures Name Priority Associated Diagnoses Date/Ti me REMOVAL PLATE SCREW OR PIN SCHED BY FAX 02/08/24 [facility] PHONE ASSESS 03/28/2024 7:30 AM GAMES MANAGER documented as of this encounter Visit Diagnoses Not on filedocumented in this encounter Care Teams Aeronautical Engineering Professor Relationship Specialty Start Date End Date Clara Stanley APNP [address] [place] [address] PCP - General NURSE PRACTITIONER 06/01/18 Dominick Mccloud MD [facility]. [facility] [address] [place] [address] Fely Horse Racing Analyst CARDIOVASCULAR DISEASE 03/28/19 documented as of this encounter
--- OUTSIDE RECORDS SUMMARY | 2024-03-02 04:01 | XMS_ITS | Encounter Summary ---
Author Organization [facility] Address [address] [place] [address]. [place], [place] [address] [place] [address] Care Team Providers Care Sales Host Name Role Phone Clara Stanley Primary Care Provider [phone] Dominick Mccloud MD Unavailable [phone] Encounter Details Date Type Department Care [...] st Contact Info) Description 03/28/2024 7:30 AM [facility] [employer]BERSH[employer] ADVISORS Hospital Encounter [facility] [place] [place] [address] Antwan Stone DPM [address], [place] [address] 03/28/2024 7:30 AM [employer] ADVISORS Anesthesia [place] [address] Shanelle Avila, VOLUNTEER SERVICES COORDINATOR [address] [place] [address] 03/28/2024 7:30 AM [facility] MEMBERSHIP ADVISORS - 03/28/2024 8:48 AM [employer]BERSHIP ADVISORS Surgery [facility] [place] [address] Antwan Stone, DPM [address], [place] [address] REMOVAL OF HARDWARE LEFT FOOT 04/05/2024 8:30 AM [employer] ADVISORS Office Visit [facility] THREE [facility], [facility] [address] [place] [address] Dominick Mccloud MD Three [facility]. [facility] [address] [place] [address] Scheduled Procedures Name Priority Associated Diagnoses Date/Ti me REMOVAL PLATE SCREW OR PIN SCHED BY FAX 02/08/24 [facility] PHONE ASSESS 03/28/2024 7:30 AM [facility] [facility]SH[employer] ADVISORS documented as of this encounter Visit Diagnoses Not on filedocumented in this encounter Care Teams Sales Host Relationship Specialty Start Date End Date Clara Stanley APNP [address] [place] [address] PCP - General NURSE PRACTITIONER 06/01/18 Dominick Mccloud MD [facility]. [facility] [address] [place] [address] [place] Welder Pipe Making CARDIOVASCULAR DISEASE 03/28/19 documented as of this encounter
--- OUTSIDE RECORDS SUMMARY | 2024-03-02 04:01 | XMS_ITS | Encounter Summary ---
Author Organization [facility] Address [address] [place] [address]. [place], [place] [address] [place] [address] Care Team Providers Care Recruitment Specialist Name Role Phone Clara Stanley Primary Care Provider [phone] Dominick Mccloud MD Unavailable [phone] Encounter Details Date Type Department Care [...] Description 03/28/2024 7:30 AM [facility] Hospital [facility] [place] [address] Antwan Stone DPM [address], [place] [address] 03/28/2024 7:30 AM VOCATIONAL INSTRUCTOR Anesthesia Event [facility] [place] [address] Shanelle Avila, RN TELEHEALTH 1 [place] [address] 03/28/2024 7:30 AM VOCATIONAL INSTRUCTOR - 03/28/2024 8:48 AM VOCATIONAL INSTRUCTOR Surgery [place] [address] Antwan Stone, DPÁngel [address] [place], [place], [place] [address] REMOVAL OF HARDWARE LEFT FOOT 04/05/2024 8:30 AM VOCATIONAL INSTRUCTOR Office Visit [facility] THREE [facility], [facility] [address] [place], [place] [address] Dominick Mccloud MD Three [facility]. [facility] [address] [place], [place] [address] Scheduled Procedures Name Priority Associated Diagnoses Date/Ti me REMOVAL PLATE SCREW OR PIN SCHED BY FAX 02/08/24 [facility] PHONE ASSESS 03/28/2024 7:30 AM VOCATIONAL INSTRUCTOR documented as of this encounter Visit Diagnoses Not on filedocumented in this encounter Care Teams Recruitment Specialist Relationship Specialty Start Date End Date Clara Stanley APNP [address] [place] [address] PCP - General NURSE PRACTITIONER 06/01/18 Dominick Mccloud MD Three [facility]. [facility] [address] [place], [place] [phone] Fely Tank Carpenter CARDIOVASCULAR DISEASE 03/28/19 documented as of this encounter
--- OUTSIDE RECORDS SUMMARY | 2024-03-02 04:01 | XMS_ITS | Encounter Summary ---
Author Organization [facility] Address [address] [place] [address]. [place], [place] [address] [place] [address] Care Team Providers Care Inside Sales Consultant Name Role Phone Clara Stanley Primary Care Provider [phone] Dominick Mccloud MD Unavailable Encounter Details Date Type Department Care Team (Latest Contact Info) Description 09/26/2019 2:43 PM CDT - 09/26/2019 6:33 PM CDT Hospital Encounter [facility] [place] [address] Clara Stanley APNP [facility]1 [place], [place] [phone] Discharge Disposition: Home or Self Care (Routine [...] [facility] Hospital Encounter [facility] [place] [address] Antwan Stone DPM [address], [place] [address] 03/28/2024 7:30 AM INDEPENDENT DISTRIBUTOR Anesthesia Event [facility] [place] [address] Shanelle Avila, LINING MAKER HAND [address] [place] [address] 03/28/2024 7:30 AM INDEPENDENT DISTRIBUTOR - 03/28/2024 8:48 AM INDEPENDENT DISTRIBUTOR Surgery [facility] [place] [address] Antwan Stone DPM [address], [place] [address] REMOVAL OF HARDWARE LEFT FOOT 04/05/2024 8:30 AM INDEPENDENT DISTRIBUTOR Office Visit [facility] Chaudhari-O'F allon THREE [facility], [facility] [address] [place] [address] Dominick Mccloud MD Three [facility]. [facility] [address] [place] [address] Scheduled Procedures Name Priority Associated Diagnoses Date/Ti me REMOVAL PLATE SCREW OR PIN SCHED BY FAX 02/08/24 [facility] PHONE ASSESS 03/28/2024 7:30 AM INDEPENDENT DISTRIBUTOR documented as of this encounter Procedures Procedure Name Priority Date/Time Associated Diagnosis Comments VITAMIN B12 / FOLATE Routine 09/26/2019 1:52 PM CDT Abnormal CBC IRON SAT PANEL (IRON,IBC,%SAT) Routine 09/26/2019 1:52 PM CDT Abnormal CBC FERRITIN Routine 09/26/2019 1:52 PM CDT Abnormal CBC documented in this encounter Results * (ABNORMAL) IRON SAT PANEL (IRON,IBC,%SAT) (09/26/2019 1:52 PM CDT) [facility] IRON 62(L) 65.0 - 175.0 MCG/DL 09/28/2019 3:27 PM CDT [facility] IRON BINDING CAPACITY 371 250 - 450 MCG/DL 09/28/2019 3:27 PM CDT [facility] IRON SATURATION 17(L) 20 - 55 % 0 3:27 PM CDT [facility] 09/26/2019 1:52 PM CDT Clara Lizeth [facility] Final Resul t [facility] [address] [place] [address], * FERRITIN (09/26/2019 1:52 PM CDT) [facility] FERRITIN 56.4 8.0 - 388.0 NG/ML 09/28/2019 3:05 PM CDT [facility] 09/26/2019 1:52 PM CDT Clara Lizeth [facility] Final Resul t [facility] [address] [place] [address], [place] [phone] * VITAMIN B12 / FOLATE (09/26/2019 1:52 PM CDT) VITAMIN B12 S/P/B 292 254 - 1,320 PG/ML 09/28/2019 3:27 PM CDT [facility] FOLATE 13.9 3.1 - 17.5 NG/ML 09/28/2019 3:27 PM CDT [facility] 09/26/2019 1:52 PM CDT Clara [facility] Final Resul t [facility] [address] [place] [address], documented in this encounter Visit Diagnoses Diagnosis Abnormal CBC Other abnormal blood chemistry Painful orthopaedic hardware (CMS/HCC)- Primary documented in this encounter Care Teams Inside Sales Consultant Relationship Specialty Start Date End Date Clara Stanley APNP [address] [place] [address] PCP - General NURSE PRACTITIONER 06/01/18 Dominick Mccloud MD Three [facility] [address] [place] [address] [place] Milk Sampler CARDIOVASCULAR DISEASE 03/28/19 documented as of this encounter
--- OUTSIDE RECORDS SUMMARY | 2024-03-02 04:01 | XMS_ITS | Encounter Summary ---
Author Organization [facility] Address [address] [place] [address]. [place] [address] [place] [address] Care Team Providers Care Care Support Representative Name Role Phone Clara Stanley Primary Care Provider [phone] Dominick Mccloud MD Unavailable [phone] Encounter Details Date Type Department Care [...] Contact Info) Description 03/28/2024 7:30 AM [facility] Hospital Encounter [facility] [place] [address] Antwan Stone DPM [address], [place] [address] 03/28/2024 7:30 AM BASKET HAND WEAVER Anesthesia Event [facility] [place] [address] Shanelle Avila, ELECTRICAL POWER ENGINEER [address] [place] [address] 03/28/2024 7:30 AM BASKET HAND WEAVER - 03/28/2024 8:48 AM BASKET HAND WEAVER Surgery [place] [address] Antwan Stone, DPÁngel [address], [place], [place] [address] REMOVAL OF HARDWARE LEFT FOOT 04/05/2024 8:30 AM BASKET HAND WEAVER Office Visit [facility] [facility] THREE [facility], [facility] [address] [place], [place] [address] Dominick Mccloud MD Three [facility]. [facility] [address] [place], [place] [address] Scheduled Procedures Name Priority Associated Diagnoses Date/Ti me REMOVAL PLATE SCREW OR PIN SCHED BY FAX 02/08/24 [facility] PHONE ASSESS 03/28/2024 7:30 AM BASKET HAND WEAVER documented as of this encounter Visit Diagnoses Not on filedocumented in this encounter Care Teams Care Support Representative Relationship Specialty Start Date End Date Clara Stanley APNP [address] [place] [address] PCP - General NURSE PRACTITIONER 06/01/18 Dominick Mccloud MD Three [facility]. [facility] [address] [place], [place] [address] Fely Welder/Installer CARDIOVASCULAR DISEASE 03/28/19 documented as of this encounter
--- OUTSIDE RECORDS SUMMARY | 2024-03-02 04:01 | XMS_ITS | Encounter Summary ---
Author Organization [facility] Address [address] [place] [address]. [place], [place] [address] [place] [address] Care Team Providers Care Ultrasound Applications Specialist Name Role Phone Clara Stanley Primary Care Provider [phone] Dominick Mccloud MD Unavailable [phone] Reason for Visit * Reason Onset Date Comments Results 04/26/2019 Encounter Details Date Type Department Care Team (Late st Contact Info) Description 04/26/2019 Telephone [facility] Medical Group Family & Internal Medicine [facility] [address] [place] [address] Clara Stanley APNP [address] [place] [address] Results Social History Tobacco Use [...] is in the pulmonology's office this morning. DAY CONSULTANT * Cheri Steiner RN - 04/26/2019 1:50 PM CST LMTC 04/26/19 DAY CONSULTANT * Cheri Steiner RN - 04/26/2019 1:47 PM CST ----- Message from ZEB Nunn sent at 04/25/2019 8:36 PM WORKDAY CONSULTANT ----- Let pt know it looks as if his lung nodules are unchanged. Recommendations include serial imaging, PET/CT or tissue sample (biopsy). Please refer to pulmonology for further discussion of this. Can place referral as urgent. DAY CONSULTANT documented in this encounter Plan of Treatment Upcoming Encounters Date Type Department Care Team (Late st Contact Info) Description 03/28/2024 7:30 AM WORKDAY CONSULTANT Hospital Encounter [facility] [address] Antwan Stnoe DPM [address], [place] [address] 03/28/2024 7:30 AM WORKDAY CONSULTANT Anesthesia [place] [address] Shanelle Avila, CUSTOMER SOLUTIONS COORDINATOR [address] [place] [address] 03/28/2024 7:30 AM WORKDAY CONSULTANT - 03/28/2024 8:48 AM WORKDAY CONSULTANT Surgery [facility] [place] [address] Antwan Stone, DPÁngel [address], [place] [address] REMOVAL OF HARDWARE LEFT FOOT 04/05/2024 8:30 AM WORKDAY CONSULTANT Office Visit [facility] THREE [facility], [facility] [address] [place] [address] Dominick Mccloud MD [facility]. [facility] [address] [place] [address] Scheduled Procedures Name Priority Associated Diagnoses Date/Ti me REMOVAL PLATE SCREW OR PIN SCHED BY FAX 02/08/24 [facility] PHONE ASSESS 03/28/2024 7:30 AM WORKDAY CONSULTANT documented as of this encounter Visit Diagnoses Not on filedocumented in this encounter Care Teams Ultrasound Applications Specialist Relationship Specialty Start Date End Date Clara Stanley APNP [address] [place] [address] PCP - General NURSE PRACTITIONER 06/01/18 Dominick Mccloud MD [facility]. [facility] [address] [place] [address] Panacea Machine Package Sealer CARDIOVASCULAR DISEASE 03/28/19 documented as of this encounter
--- OUTSIDE RECORDS SUMMARY | 2024-03-02 04:01 | XMS_ITS | Encounter Summary ---
Author Organization [facility] Address [address] [place] [address]. [place], [place] [address] [place] [address] Care Team Providers Care Forest Ranger Technician Name Role Phone Clara Stanley Primary Care Provider [phone] Dominick Mccloud MD Unavailable Encounter Details Date [...] st Contact Info) Description 03/28/2024 7:30 AM RELEASE ENGINEER Hospital Encounter [facility] [place] [address] Antwan Stone DPM [address], [place] [address] 03/28/2024 7:30 AM RELEASE ENGINEER Anesthesia [place] [address] Shanelle Avila, WIRE COILER [address] [place] [address] 03/28/2024 7:30 AM RELEASE ENGINEER - 03/28/2024 8:48 AM RELEASE ENGINEER Surgery [place] [address] Antwan Stone, DPÁngel [address], [place] [address] REMOVAL OF HARDWARE LEFT FOOT 04/05/2024 8:30 AM RELEASE ENGINEER Office Visit [facility] THREE [facility], [facility] [address] [place] [address] Dominick Mccloud MD Three [facility]. [facility] [address] [place], [place] [address] Scheduled Procedures Name Priority Associated Diagnoses Date/Ti me REMOVAL PLATE SCREW OR PIN SCHED BY FAX 02/08/24 [facility] PHONE ASSESS 03/28/2024 7:30 AM RELEASE ENGINEER documented as of this encounter Visit Diagnoses Not on filedocumented in this encounter Care Teams Forest Ranger Technician Relationship Specialty Start Date End Date Clara Stanley APNP [address] [place] [address] PCP - General NURSE PRACTITIONER 06/01/18 Dominick Mccloud MD Three [facility]. [facility] [address] [place], [place] [address] [place] Fisher Mussel CARDIOVASCULAR DISEASE 03/28/19 documented as of this encounter
--- OUTSIDE RECORDS SUMMARY | 2024-03-02 04:01 | XMS_ITS | Encounter Summary ---
Author Organization [facility] Address [address] [place] [address]. [place], [place] [address] [place] [address] Care Team Providers Care Nuclear Fuel Processing Technician Name Role Phone Clara Stanley Primary Care Provider [phone] Dominick Mccloud MD Unavailable [phone] Encounter Details Date Type Department Care Team (Late st Contact Info) Description 10/20/2019 [facility] [address] Scanned, Documents Social History Tobacco Use Types [...] (Late Contact Info) Description 03/28/2024 7:30 AM [facility] Hospital Encounter [facility] [address] Antwan Stone DPM [address], [place] [address] 03/28/2024 7:30 AM PET HOUSE SITTER Anesthesia Event [facility] [place] [address] Shanelle Avila, POCKET FLAP CREASING 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 [address] [place] [address] 03/28/2024 7:30 AM PET HOUSE SITTER - 03/28/2024 8:48 AM PET HOUSE SITTER Surgery [facility] [place] [address] Antwan Stone DPM [address] [place] [address] REMOVAL OF HARDWARE LEFT FOOT 04/05/2024 8:30 AM PET HOUSE SITTER Office Visit [facility] Chaudh[facility]-O'F allon THREE [facility], [facility] [address] [place] [address] Dominick Mccloud MD Three [facility]. [facility] [address] [place] [address] Scheduled Procedures Name Priority Associated Diagnoses Date/Ti me REMOVAL PLATE SCREW OR PIN SCHED BY FAX 02/08/24 [facility] PHONE ASSESS 03/28/2024 7:30 AM PET HOUSE SITTER documented as of this encounter Visit Diagnoses Not on filedocumented in this encounter Care Teams Nuclear Fuel Processing Technician Relationship Specialty Start Date End Date Clara Stanley APNP [address] [place] [address] PCP - General NURSE PRACTITIONER 06/01/18 Dominick Mccloud MD Three [facility]. [facility] [address] [place] [address] [place] Shaper Hand CARDIOVASCULAR DISEASE 03/28/19 documented as of this encounter
--- OUTSIDE RECORDS SUMMARY | 2024-03-02 04:01 | XMS_ITS | Encounter Summary ---
Author Organization [facility] Address [address] [place] [address]. [place], [place] [address] [place] [address] Care Team Providers Care Political Aide Name Role Phone Clara Stanley Primary Care Provider [phone] Dominick Mccloud MD Unavailable [phone] Encounter Details Date Type Department Care [...] st Contact Info) Description 03/28/2024 7:30 AM DIGITAL PRESS OPERATOR Hospital Encounter [facility] [place] [address] Antwan Stone DPM [address], [place] [address] 03/28/2024 7:30 AM DIGITAL PRESS OPERATOR Anesthesia Event [facility] [address] Shanelle Avila, V BELT CURER [address] [place] [address] 03/28/2024 7:30 AM DIGITAL PRESS OPERATOR - 03/28/2024 8:48 AM DIGITAL PRESS OPERATOR Surgery [facility] [address] Antwan Stone, DPÁngel [address], [place] [address] REMOVAL OF HARDWARE LEFT FOOT 04/05/2024 8:30 AM DIGITAL PRESS OPERATOR Office Visit [facility] THREE [facility], [facility] [address] [place] [address] Dominick Mccloud MD Three [facility]. [facility] [address] [place], [place] [address] Scheduled Procedures Name Priority Associated Diagnoses Date/Ti me REMOVAL PLATE SCREW OR PIN SCHED BY FAX 02/08/24 [facility] PHONE ASSESS 03/28/2024 7:30 AM DIGITAL PRESS OPERATOR documented as of this encounter Visit Diagnoses Not on filedocumented in this encounter Care Teams Political Aide Relationship Specialty Start Date End Date Clara Stanley APNP [address] [place] [address] PCP - General NURSE PRACTITIONER 06/01/18 Dominick Mccloud MD Three [facility]. [facility] [address] [place], [place] [address] Jackson Esol Instructor CARDIOVASCULAR DISEASE 03/28/19 documented as of this encounter
--- OUTSIDE RECORDS SUMMARY | 2024-03-02 04:01 | XMS_ITS | Encounter Summary ---
Author Organization [facility] Address [address] [place] [address]. [place] [address] [place] [address] Care Team Providers Care Transmission Supervisor Name Role Phone Clara Stanley Primary Care Provider Dominick Mccloud MD Unavailable [phone] Alexis Lopez MD Unavailable [phone] Kip Del Rio MD Unavailable [phone] Encounter Details Date Type Department Care Team (Late st Contact Info) Description 10/20/2019 Prep for Procedure [facility] [place] [address] Antwan Milton MD Three [facility]. [facility] [address] [place] [address] Social History Tobacco Use Types [...] st Contact Info) Description 03/28/2024 7:30 AM DRAPERY OPERATOR Hospital Encounter [facility] [place] [address] Antwan Stone, DIEGO [address], [place] [address] 03/28/2024 7:30 AM DRAPERY OPERATOR Anesthesia Event [place] [address] Shanelle Avila CNP [address] [place] [address] 03/28/2024 7:30 AM DRAPERY OPERATOR - 03/28/2024 8:48 AM DRAPERY OPERATOR Surgery [place] [address] Antwan Stone, DIEGO [address], [place] [address] REMOVAL OF HARDWARE LEFT FOOT 04/05/2024 8:30 AM DRAPERY OPERATOR Office Visit [facility] THREE [facility], [facility] [address] [place], [place] [address] Dominick Mccloud MD Three [facility]. [facility] [address] [place] [address] Scheduled Procedures Name Priority Associated Diagnoses Date/Ti me REMOVAL PLATE SCREW OR PIN SCHED BY FAX 02/08/24 [facility] PHONE ASSESS 03/28/2024 7:30 AM DRAPERY OPERATOR documented as of this encounter Results * PRE-SURGICAL/PRE-PROCEDURE CORONAVIRUS (COVID 19) (10/28/2019 10:05 AM CDT) CORONAVIRUS SARS COV 2 PCR (RESP) NOT DETECTED NOT DETECTED 10/30/2019 8:53 AM CDT [facility] Comment: A Not Detected (negative) test [...] providers and patients using the following websites: https://www.Web and Rank.Eyebrid Blaze/home/Covid-19/HCP/Quest[facility]/fact- sheet.html https://www.Web and Rank.[employer] Blaze/home/Covid-19/Patients/ Quest[facility]/fact-sheet.html This test has been authorized by the FDA under an Emergency Use Authorization (EUA) for use by authorized laboratories. Due to the current public health emergency, [facility] is receiving a high volume of samples [...] about COVID-19 can be found at the [facility] website: www.[employer].Eyebrid Blaze/Covid19. Test performed at [facility] [address] [place], [place] ??[address] Director: ENRICO VALDEZ DO,MPH NASOPHARYNGEAL SWAB / Unknown 10/28/2019 10:05 AM CDT us Antwan Milton MD MICROBIOLOGY - GENERAL ORDERABLE S Final Result [facility] [address] [place] [address], documented in this encounter Visit Diagnoses Diagnosis Pre-op exam- Primary Preoperative examination, unspecified Painful orthopaedic hardware (CMS/HCC)- Primary documented in this encounter Additional Health Concerns Infection Onset Date Last Indicated Resolved Time COVID-19 Rule Out 10/28/2019 10/28/2019 10/30/2019 8:53 AM CDT documented as of this encounter Care Teams Transmission Supervisor Relationship Specialty Start Date End Date Clara Stanley APNP [address] [place] [address] PCP - General NURSE PRACTITIONER 06/01/18 Dominick Mccloud MD [facility] [address] [place] [address] [place] [employer] CARDIOVASCULAR DISEASE 03/28/19 Alexis Lopez MD [address]00 [facility] [address] [place] [address] PULMONARY DISEASE 10/21/19 Kip Del Rio MD 4921 [facility] [address] [place] [address] MEDICAL ONCOLOGY 02/24/24 documented as of this encounter
--- OUTSIDE RECORDS SUMMARY | 2024-03-02 04:01 | XMS_ITS | Encounter Summary ---
Author Organization [facility] Address [address] [place] [address]. [place], [place] [address] [place] [address] Care Team Providers Care Figure Clerk Name Role Phone Clara Stanley Primary Care Provider Dominick Mccloud MD Unavailable [phone] Encounter Details Date Type Department Care Team (Latest Contact Info) Description 09/26/2019 6:34 PM CDT - 09/26/2019 11:59 PM CDT Hospital Encounter [facility] [place] [address] Clara Stanley APNP [facility]1 [place], [place] [id number] Discharge Disposition: Home or Self Care (Routine [...] Contact Info) Description 03/28/2024 7:30 AM DIE CAST TECHNICIAN Hospital Encounter [facility] [place] [address] Antwan Stone, DPM [address], [place] [address] 03/28/2024 7:30 AM DIE CAST TECHNICIAN Anesthesia [place] [address] Shanelle Avila, RAEANN [address] [place] [address] 03/28/2024 7:30 AM DIE CAST TECHNICIAN - 03/28/2024 8:48 AM DIE CAST TECHNICIAN Surgery [facility] [place] [address] Antwan Stone, DIEGO [address], [place] [address] REMOVAL OF HARDWARE LEFT FOOT 04/05/2024 8:30 AM DIE CAST TECHNICIAN Office Visit Darren Chaudhari-O'F allon THREE [facility] [address] [place] [address] Dominick Mccloud MD Three [facility]. [facility] [address] [place] [address] Scheduled Procedures Name Priority Associated Diagnoses Date/Ti me REMOVAL PLATE SCREW OR PIN SCHED BY FAX 02/08/24 [facility] PHONE ASSESS 03/28/2024 7:30 AM DIE CAST TECHNICIAN documented as of this encounter Procedures [...] - 3.74 uIU/ML 09/26/2019 8:03 PM CDT [facility] Comment: HIGH DOSES OF BIOTIN MAY INTERFERE WITH THIS TEST RESULT. CORRELATION TO CLINICAL HISTORY AND PRESENTATION RECOMMENDED. FREE T4 NOT INDICATED 09/26/2019 1:52 PM CDT Clara [facility] Final Resul t [facility] [address] [place] [address], * URINALYSIS WI REFLEX TO CULTURE (09/26/2019 1:52 PM CDT) SPECIMEN TYPE URINE CLEAN CATCH 09/26/2019 6:35 PM CDT [facility] COLOR (U) YELLOW 09/26/2019 7:56 PM CDT [facility] TRANSPARENCY CLEAR 09/26/2019 7:56 PM CDT [facility] SPECIFIC GRAVITY (U) 1.024 1.001 - 1.030 09/26/2019 7:56 PM CDT [facility] U PH 5.5 5.0 - 9.0 09/26/2019 7:56 PM CDT [facility] LEUKOCYTES (U) NEGATIVE NEGATIVE 09/26/2019 7:56 PM T [facility] NITRITES NEGATIVE NEGATIVE 09/26/2019 7:56 PM CDT [facility] PROTEIN (U) NEGATIVE <30 MG/DL 09/26/2019 7:56 PM CDT [facility] URINE GLUCOSE NORMAL NORMAL MG/DL 09/26/2019 7:56 PM T [facility] KETONES MG/DL (U) NEGATIVE NEGATIVE MG/DL 09/26/2019 7:56 PM T [facility] UROBILINOGEN NORMAL NORMAL MG/DL 09/26/2019 7:56 PM T [facility] BILIRUBIN (U) NEGATIVE NEGATIVE MG/DL 09/26/2019 7:56 PM T [facility] BLOOD (U) NEGATIVE NEGATIVE 09/26/2019 7:56 PM T [facility] CULTURE & SENSITIVITY INDICATED? CULTURE IS NOT INDICATED 09/26/2019 7:56 PM T [facility] MUCUS FEW /LPF 09/26/2019 7:56 PM T [facility] HYALINE CASTS RARE /LPF 09/26/2019 7:56 PM CDT [facility] WBC/HPF 3 <6 /HPF 09/26/2019 7:56 PM CDT [facility] RBC/HPF 1 <6 /HPF 09/26/2019 7:56 PM T [facility] CA OXALATE CRYSTALS RARE /HPF 09/26/2019 7:56 PM CDT [facility] SQUAMOUS EPITHELIALS RARE /HPF 09/26/2019 7:56 PM T [facility] URINE SPECIMEN OBTAINED BY CLEAN CATCH PROCEDURE / Unknown 09/26/2019 1:52 PM CDT Clara CARRINGTON URINE ORDERABLES Final Resu lt Performing Organization Address City/[facility]/ZIP Co de Phone Number [facility] [address] [place] [address], [place] [phone] * URIC ACID BLOOD (09/26/2019 1:52 PM CDT) URIC ACID 6.3 3.5 - 7.2 MG/DL 09/26/2019 8:03 PM CDT [facility] 09/26/2019 1:52 PM CDT Clara [facility] Final Resul t Performing Organization Address City/[facility]/ZIP Co de Phone Number [facility] [address] [place] [address], [place] [phone] * (ABNORMAL) COMPREHENSIVE METABOLIC PANEL (09/26/2019 1:52 PM CDT) GLUCOSE 85 70 - 99 MG/DL 09/26/2019 8:03 PM CDT [facility] BUN 14 7 - 18 MG/DL 09/26/2019 8:03 PM CDT [facility] CREATININE S/P/B 0.87 0.7 - 1.3 MG/DL 09/26/2019 8:03 PM CDT [facility] SODIUM S/P/B 139 136 - 145 MMOL/L 09/26/2019 8:03 PM CDT [facility] POTASSIUM S/P/B 3.9 3.5 - 5.1 MMOL/L 09/26/2019 8:03 PM CDT [facility] CHLORIDE S/P/B 110(H) 100 - 108 MMOL/L 09/26/2019 8:03 PM CDT [facility] CO2 22.6 21 - 32 MMOL/L 09/26/2019 8:03 PM T [facility] CALCIUM S/P/B 9.4 8.5 - 10.1 MG/DL 09/26/2019 8:03 PM T [facility] BILIRUBIN TOTAL S/P/B 0.2 0.2 - 1.2 MG/DL 09/26/2019 8:03 PM T [facility] Comment: THIS ASSAY IS NOT RECOMMENDED FOR PATIENTS UNDERGOING TREATMENT WITH ELTROMBOPAG DUE TO THE POTENTIAL FOR FALSELY ELEVATED RESULTS. TOTAL PROTEIN S/P/B 8.0 6.4 - 8.2 G/DL 09/26/2019 8:03 PM T [facility] ALBUMIN S/P/B 4.0 3.4 - 5.0 G/DL 09/26/2019 8:03 PM CDT [facility] AST 17 15 - 37 U/L 09/26/2019 8:03 PM T [facility] ALT 21 16 - 60 U/L 09/26/2019 8:03 PM T [facility] ALKALINE PHOSPHATASE S/P/B 136 50 - 136 U/L 09/26/2019 8:03 PM T [facility] ANION GAP 6.4 5 - 15 MMOL/L 09/26/2019 8:03 PM T [facility] BUN CREATININE RATIO 16.0 6 - 26 09/26/2019 8:03 PM T [facility] A/G RATIO 1.0 1.0 - 2.0 RATIO 09/26/2019 8:03 PM T [facility] EGFR NON-AFR. AMER. >90 >90 ML/MIN/1.7 3 M2 09/26/2019 8:03 PM CDT [facility] EGFR AFR. AMER. >90 >90 ML/MIN/1.7 3 M2 09/26/2019 8:03 PM CDT [facility] Comment: NOTE: eGFR is not calculated for patients <18 years of age. This is an estimated GFR (CKD EPI) and should not be used for calculating drug doses. 09/26/2019 1:52 PM CDT us Clara [facility] Final Resul t [facility] [address] [place] [address], * (ABNORMAL) LIPID PANEL (09/26/2019 1:52 PM CDT) CHOLESTEROL 196 <200 MG/DL 09/26/2019 8:03 PM CDT [facility] TRIGLYCERIDES 150(H) <150 MG/DL 09/26/2019 8:03 PM CDT [facility] HDL 52 >40.0 MG/DL 09/26/2019 8:03 PM CDT [facility] LDL (CALCULATED) 114(H) <100 MG/DL 09/26/2019 8:03 PM CDT [facility] NON HDL CHOLESTEROL 144(H) <130 MG/DL 09/26/2019 8:03 PM CDT [facility] CHOL/HDL RATIO 3.8 0.0 - 4.5 09/26/2019 8:03 PM CDT [facility] VLDL CALCULATION 30 5 - 55 MG/DL 09/26/2019 8:03 PM CDT [facility] LIPID INTERPRETATION 09/26/2019 8:03 PM CDT [facility] Comment: NIH [facility] REPORT RECOMMENDATIONS: [...] LABORATORY Final Resul t Performing Organization Address City/[facility]/ZIP Co de Phone Number [facility] [address] [place] [address], [place] [phone] * (ABNORMAL) CBC W/DIFF AUTOMATED (09/26/2019 1:52 PM CDT) [facility] WBC 11.6(H) 4.5 - 11.0 x10'3/uL 09/26/2019 7:44 PM CDT [facility] RBC 5.25 4.70 - 6.10 x10'6/uL 09/26/2019 7:44 PM CDT [facility] HGB 13.7(L) 14.0 - 18.0 G/DL 09/26/2019 7:44 PM CDT [facility] HCT 44.6 43.0 - 54.0 % 09/26/2019 7:44 PM CDT [facility] MCV 85.0 80.0 - 94.0 FL 09/26/2019 7:44 PM CDT [facility] MCH 26.1(L) 27.0 - 31.0 PG 09/26/2019 7:44 PM CDT [facility] MCHC 30.7(L) 32.0 - 36.0 G/DL 09/26/2019 7:44 PM CDT [facility] RDW 16.5(H) 11.5 - 14.5 % 09/26/2019 7:44 PM CDT [facility] PLT 298 130 - 400 x10'3/uL 09/26/2019 7:44 PM CDT [facility] MPV 12.4(H) 9.3 - 12.2 FL 09/26/2019 7:44 PM CDT [facility] DIFFERENTIAL TYPE AUTOMATED DIFFERENTIAL 09/26/2019 7:44 PM CDT [facility] NEUTROPHILS % 72.2 % 09/26/2019 7:44 PM CDT [facility] LYMPHOCYTES % 14.0 % 09/26/2019 7:44 PM CDT [facility] MONOCYTES % 8.7 % 09/26/2019 7:44 PM CDT [facility] EOSINOPHILS 3.9 % 09/26/2019 7:44 PM CDT [facility] BASOPHILS 0.6 % 09/26/2019 7:44 PM CDT [facility] IMMATURE GRANS % 0.6 % 09/26/19 20 7:44 PM CDT [facility] ABS. NEUTROPHILS TOTAL 8.34(H) 1.80 - 7.70 x10'3/uL 09/26/2019 7:44 PM CDT [facility] ABS. LYMPHOCYTES 1.62 1.00 - 4.80 x10'3/uL 09/26/2019 7:44 PM CDT [facility] ABS. MONOCYTES 1.00(H) 0.30 - 0.82 x10'3/uL 09/26/2019 7:44 PM CDT [facility] ABS. EOSINOPHILS 0.45 0.04 - 0.54 x10'3/uL 09/26/2019 7:44 PM CDT [facility] ABS. BASOPHILS 0.07 0.01 - 0.08 x10'3/uL 09/26/2019 7:44 PM CDT [facility] ABS. IMMATURE GRANULOCYTES 0.07 0.00 - 0.49 x10'3/uL 09/26/2019 7:44 PM CDT [facility] 09/26/2019 1:52 PM CDT [facility] Final Resul t [facility] [address] [place] [address], [place] [phone] documented in this encounter Visit Diagnoses Diagnosis Routine medical exam Routine general medical examination at a health care facility Mixed hyperlipidemia Essential hypertension Unspecified essential hypertension Morbid obesity (CMS/HCC [facility]/HCC) Morbid obesity Painful orthopaedic hardware ([facility])- Primary documented in this encounter Care Teams Figure Clerk Relationship Specialty Start Date End Date Clara Stanley APNP [address] [place] [address] PCP - General NURSE PRACTITIONER 06/01/18 Dominick Mccloud MD [facility] [address] [place] [address] [employer] Still Operator CARDIOVASCULAR DISEASE 03/28/19 documented as of this encounter
--- OUTSIDE RECORDS SUMMARY | 2024-03-02 04:01 | XMS_ITS | Encounter Summary ---
Author Organization [facility] Address [address] [place] [address]. [place], [place] [address] [place] [address] Care Team Providers Care Marker Shipments Name Role Phone Clara Stanley Primary Care Provider [phone] Dominick Mccloud MD Unavailable [phone] Reason for Visit * Auth/Cert Specialty Diagnoses / Procedures Referred By Erik t Referred To Contact Diagnoses ABDOMINAL LEFT UPPER QUADRANT ABDOMINAL PAIN ANOREXIA CONSTIPATION WEIGHT LOSS Procedures EGD Referral ID Status Reason Start Date Expiration Date Visits Re quested Visits Authorized [id number] 1 1 Encounter Details Date Type Department Care Team (Late st Contact Info) Description 04/28/2019 7:40 AM BOILER/CHILLER OPERATOR Anesthesia Event [facility] [place] [address] Kwaku Doan MD One [facility] [id number] [place] [address] [phone] (Work) Jacinto Correa CRNA Anesthesia Record Procedure Summary Procedure Name Responsible Anesthesiologist Anesthesia Start Time Anesthesia Stop Time EGD Kwaku Doan MD 04/28/19 0740 0759 Events Date Time Event Comment 04/28/2019 0650 AN RN ORTHOPAEDICS Prepped 0715 0715 AN Anesthesia Prepped 0740 [...] Comments: No anesthetic related complaints are voiced ER/CHILLER OPERATOR * Anesthesia Postprocedure Evaluation - Kwauk Doan MD - 04/28/2019 8:17 AM CST [...] Postoperative Hydration: euvolemic Complications: no anesthesia complication ER/CHILLER OPERATOR * Anesthesia Preprocedure Evaluation - Kwaku [...] spouse of whom consent was obtained. . ER/CHILLER OPERATOR documented in this encounter Plan of Treatment Upcoming Encounters Date Type Department Care Team (Late st Contact Info) Description 03/28/2024 7:30 AM BOILER/CHILLER OPERATOR Hospital Encounter [facility] [place] [address] Antwan Stone, DPÁngel [address], [place] [address] 03/28/2024 7:30 AM BOILER/CHILLER OPERATOR Anesthesia [place] [address] Shanelle Avila, RAEANN [address] [place] [address] 03/28/2024 7:30 AM BOILER/CHILLER OPERATOR - 03/28/2024 8:48 AM BOILER/CHILLER OPERATOR Surgery [place] [address] Antwan cruz, DIEGO [address] [place], [place] [address] REMOVAL OF HARDWARE LEFT FOOT 04/05/2024 8:30 AM BOILER/CHILLER OPERATOR Office Visit [facility]-O'F allon THREE [facility] [address] [place], [place] [address] Dominick Mccloud MD Three [facility]. [facility] [address] [place], [place] [address] Scheduled Procedures Name Priority Associated Diagnoses Date/Ti me REMOVAL PLATE SCREW OR PIN SCHED BY FAX 02/08/24 [facility] PHONE ASSESS 03/28/2024 7:30 AM BOILER/CHILLER OPERATOR documented as of this encounter Visit Diagnoses Not on filedocumented in this encounter Administered Medications Inactive Administered Medications - up to 3 most recent administrations Medication Order MAR Action Action Date Dose Rate Site lactated ringers infusion Intravenous, Continuous PRN, Starting on Priscila 04/28/19 at 0740, Until Pricsila 04/28/19 at 0759, Anesthesia Intra-Op New Bag 04/28/2019 7:40 AM BOILER/CHILLER OPERATOR lidocaine (PF) (XYLOCAINE) 2 % injection Intravenous, PRN, Starting on Priscila 04/28/19 at 0751, Until Priscila 04/28/19 at 0759, Anesthesia Intra-Op Given 04/28/2019 7:51 AM BOILER/CHILLER OPERATOR 50 mg propofol (DIPRIVAN) IV bolus Intravenous, PRN, Starting on Priscila 04/28/19 at 0751, Until Priscila 04/28/19 at 0759, Anesthesia Intra-Op Given 04/28/2019 7:54 AM BOILER/CHILLER OPERATOR 50 mg Given 04/28/2019 7:51 AM BOILER/CHILLER OPERATOR 100 mg documented in this encounter Care Teams Marker Shipments Relationship Specialty Start Date End Date Clara Stanley APNP [address] [place] [address] PCP - General NURSE PRACTITIONER 06/01/18 Dominick Mccloud MD [facility] [address] [place] [address] Pinson Gateman CARDIOVASCULAR DISEASE 03/28/19 documented as of this encounter
--- OUTSIDE RECORDS SUMMARY | 2024-03-02 04:01 | XMS_ITS | Encounter Summary ---
Author Organization [facility] Address [address] [place] [address]. [place], [place] [address] [place] [address] Care Team Providers Care Operators School Manager Name Role Phone Clara Stanley Primary Care Provider [phone] Dominick Mccloud MD Unavailable [phone] Reason for Visit * Auth/Cert Specialty Diagnoses / Procedures Referred By Contac t Referred To Contact Diagnoses ABDOMINAL LEFT UPPER QUADRANT ABDOMINAL PAIN ANOREXIA CONSTIPATION WEIGHT LOSS Procedures EGD Referral ID Status Reason Start Date Expiration Date Visits Re quested Visits Authorized [id number] 1 1 Encounter Details Date Type Department Care Team (Latest Contact Info) Description 04/28/2019 6:28 AM BRAND LEADER - 04/28/2019 8:47 AM RUST Hospital Encounter [facility] [place] [address] Du Goff MD [address] [address] Discharge Disposition: Home or Self Care (Routine [...] Comments Blood Pressure 127/72 04/28/2019 8:15 AM BRAND LEADER Pulse 63 04/28/2019 8:15 AM BRAND LEADER Temperature 36.7 ??C (98.1 ??F) 04/28/2019 8:03 AM CS T Respiratory Rate 30 04/28/2019 8:15 AM BRAND LEADER Oxygen Saturation 97% 04/28/2019 8:15 AM BRAND LEADER Inhaled Oxygen Concentration - - Weight 158.8 kg (350 lb) 04/21/2019 3:25 PM BRAND LEADER Height 190.5 cm (6' 3 ) 04/21/2019 3:25 PM BRAND LEADER Body Mass Index 43.75 04/21/2019 3:25 PM BRAND LEADER documented in this encounter Discharge Instructions * Discharge Instructions* Du Goff MD - 04/28/2019 8:01 AM BRAND LEADER Normal EGD D LEADER * Attachments The following attachments cannot be sent through Care Everywhere. * Upper GI Endoscopy Discharge Instructions (Mozambican) documented in this encounter Medications at Time [...] file Gets together: Not on file Attends congregation service: Not on file Active member of [...] & Plan: EGD DU GOFF MD 04/28/2019 D LEADER documented in this encounter OR Notes * Op Note - Du Goff MD - 04/28/2019 7:50 AM CST DU GOFF MD, FACG, FACP UPPER ENDOSCOPY INDICATION: LUQ/epigastric pain, anorexia, weight loss. POST-OP: Normal. SEDATION: Per anesthesia With the patient in the left lateral decubitus position, the Olympus [id number] [id number] upper endoscope wasused to easily intubate the [...] office in one month. Du Goff M.D. D LEADER documented in this encounter Plan of Treatment Upcoming Encounters Date Type Department Care Team (Late st Contact Info) Description 03/28/2024 7:30 AM BRAND LEADER Hospital Encounter [facility] [place] [address] Antwan Stone DPM [address], [place] [address] 03/28/2024 7:30 AM BRAND LEADER Anesthesia Event [place], [place] [address] Shanelle Avila, PRODUCT SUPPORT ENGINEER [address] [place] [address] 03/28/2024 7:30 AM BRAND LEADER - 03/28/2024 8:48 AM BRAND LEADER Surgery [facility] OR ONE [facility] [place] [address] Antwan Stone DPM [address], [place] [address] REMOVAL OF HARDWARE LEFT FOOT 04/05/2024 8:30 AM BRAND LEADER Office Visit Darren Chaudhari-O'F lonnie THREE [facility], [facility] [address] [place] [address] Dominick Mccloud MD Three [facility]. [facility] [address] [place] [address] Scheduled Procedures Name Priority Associated Diagnoses Date/Ti me REMOVAL PLATE SCREW OR PIN SCHED BY FAX 02/08/24 [facility] PHONE ASSESS 03/28/2024 7:30 AM BRAND LEADER documented as of this encounter Procedures Procedure Name Priority Date/Time Associated Diagnosis Comments EGD 04/28/2019 7:32 AM BRAND LEADER ABDOMINAL LEFT UPPER QUADRANT ABDOMINAL PAIN ANOREXIA CONSTIPATION WEIGHT LOSS Case Notes SCHEDULED BY FAX 04/15/19 LB EGD Routine 04/28/2019 6:49 AM BRAND LEADER documented in this encounter Visit Diagnoses Not [...] Recently Administered Medications Times are shown in BRAND LEADER. Continuous Medication Order 04/26/2019 04/27/2019 04/28/2019 lactated ringers infusion at 10 mL/hr, Intravenous, Continuous, Starting on Priscila 04/28/19 at 0730, Until Priscila 04/28/19 at 1047, Infuse at TKO rate, Pre-Op 0730 (Canceled Entry - Provider: Automatic Discharge Provider - Comment: Automatically canceled at discontinue of medication order) documented in this encounter Care Teams Operators School Manager Relationship Specialty Start Date End Date Clara Stanley APNP [address] [place] [address] PCP - General NURSE PRACTITIONER 06/01/18 Dominick Mccloud MD [facility] [address] [place] [address] [place] Tank Filler CARDIOVASCULAR DISEASE 03/28/19 documented as of this encounter
--- OUTSIDE RECORDS SUMMARY | 2024-03-02 04:01 | XMS_ITS | Encounter Summary ---
Author Organization [facility] Address [address] [place] [address]. [place], [place] [address] [place] [address] Care Team Providers Care Larry Operator Name Role Phone Clara Stanley Primary Care Provider [phone] Dominick Mccloud MD Unavailable [phone] Reason for Visit * Reason Onset Date Comments ER F/U 04/11/2019 Encounter Details Date Type Department Care Team (Late st Contact Info) Description 04/11/2019 Telephone [facility] Medical Group Multispecialty Care - [facility] [address] [facility] [place] [id number] Hector Delgado MD 3 [facility] [address] [place], [place] [id number] ER F/U Social History Tobacco Use Types [...] AM CST Spoke with patient's appt scheduled. TRUCTION PROJECT ASSISTANT * Patria Denson - 04/11/2019 7:40 AM CST Pt seen by Dr Delgado in ER this weekend. Dr Delgado told pt to call office to make urgent appt to be seen today. is calling for this. Please call her (Faith--[phone]) for appt time for today. TRUCTION PROJECT ASSISTANT documented in this encounter Plan of Treatment Upcoming Encounters Date Type Department Care Team (Late st Contact Info) Description 03/28/2024 7:30 AM CONSTRUCTION PROJECT ASSISTANT Hospital Encounter [facility] [address] Antwan Stone DPM [address] [place] [address] 03/28/2024 7:30 AM CONSTRUCTION PROJECT ASSISTANT Anesthesia [place] [address] Shanelle Avila, HIGH SCHOOL AUTO REPAIR TEACHER 1 [place] [address] 03/28/2024 7:30 AM CONSTRUCTION PROJECT ASSISTANT - 03/28/2024 8:48 AM CONSTRUCTION PROJECT ASSISTANT [place] [address] Antwan Stone, DIEGO [address] [place], [place] [address] REMOVAL OF HARDWARE LEFT FOOT 04/05/2024 8:30 AM CONSTRUCTION PROJECT ASSISTANT Office Visit [facility] THREE [facility], [facility] [address] [place] [address] Dominick Mccloud MD Three [facility]. [facility] [address] [place] [address] Scheduled Procedures Name Priority Associated Diagnoses Date/Ti me REMOVAL PLATE SCREW OR PIN SCHED BY FAX 02/08/24 [facility] PHONE ASSESS 03/28/2024 7:30 AM CONSTRUCTION PROJECT ASSISTANT documented as of this encounter Visit Diagnoses Not on filedocumented in this encounter Care Teams Larry Operator Relationship Specialty Start Date End Date Clara Stanley APNP [address] [place] [address] PCP - General NURSE PRACTITIONER 06/01/18 Dominick Mccloud MD Three [facility]. [facility] [address] [place] [address] Fely Test Baker CARDIOVASCULAR DISEASE 03/28/19 documented as of this encounter
--- OUTSIDE RECORDS SUMMARY | 2024-03-02 04:01 | XMS_ITS | Encounter Summary ---
Author Organization [facility] Address [address] [place] [address]. [place], [place] [address] [place] [address] Care Team Providers Care Neurological Surgeon Name Role Phone Clara Stanley Primary Care Provider [phone] Dominick Mccloud MD Unavailable [phone] Reason for Visit * Reason Onset Date Comments Results 04/12/2019 Encounter Details Date Type Department Care Team (Late st Contact Info) Description 04/12/2019 Telephone [facility] Medical Group Family & Internal Medicine [facility] [address] [place] [address] Clara Stanley APNP [address] [place] [address] Results Social History Tobacco Use [...] - 04/12/2019 1:57 PM CST Patient notified. CUTTER * Cheri Steiner RN - 04/12/2019 1:50 PM CST ----- Message from Yakov Bello MD sent at 04/11/2019 6:11 PM ICE CUTTER ----- Abdominal ultrasound is normal. CUTTER documented in this encounter Plan of Treatment Upcoming Encounters Date Type Department Care Team (Late st Contact Info) Description 03/28/2024 7:30 AM ICE CUTTER Hospital Encounter [facility] [place] [address] Antwan Stone, DPM [address], [place] [address] 03/28/2024 7:30 AM ICE CUTTER Anesthesia Event [place] [address] Shanelle Avila, COORDINATOR OF EVALUATION 1 [place] [address] 03/28/2024 7:30 AM ICE CUTTER - 03/28/2024 8:48 AM ICE CUTTER Surgery [place] [address] Antwan Stone, DIEGO [address] [place], [place] [address] REMOVAL OF HARDWARE LEFT FOOT 04/05/2024 8:30 AM ICE CUTTER Office Visit [facility] THREE [facility], [facility] [address] [place] [address] Dominick Mccloud MD Three [facility]. [address] [address] Scheduled Procedures Name Priority Associated Diagnoses Date/Ti me REMOVAL PLATE SCREW OR PIN SCHED BY FAX 02/08/24 [facility] PHONE ASSESS 03/28/2024 7:30 AM ICE CUTTER documented as of this encounter Visit Diagnoses Not on filedocumented in this encounter Care Teams Neurological Surgeon Relationship Specialty Start Date End Date Clara Stanley APNP [address] [place] [address] PCP - General NURSE PRACTITIONER 06/01/18 oDminick Mccloud MD [address] [address] Fely Plastic Sewer CARDIOVASCULAR DISEASE 03/28/19 documented as of this encounter
--- OUTSIDE RECORDS SUMMARY | 2024-03-02 04:01 | XMS_ITS | Encounter Summary ---
Author Organization [facility] Address [address] [place] [address]. [place] [address] [place] [address] Care Team Providers Care Spirits Model Name Role Phone Clara Stanley Primary Care Provider [phone] Dominick Mccloud MD Unavailable [phone] Reason for Visit * Reason Comments Image [...] [facility] Hospital Encounter [facility] [place] [address] Antwan Stone DPM [address], [place] [address] 03/28/2024 7:30 AM SPORTS MEDICINE SPECIALIST Anesthesia [place] [address] Shanelle Avila, MANAGER VOICE 1 [place] [address] 03/28/2024 7:30 AM SPORTS MEDICINE SPECIALIST - 03/28/2024 8:48 AM SPORTS MEDICINE SPECIALIST [place] [address] Antwan Stone, DPM [address], [address] [place] [address] REMOVAL OF HARDWARE LEFT FOOT 04/05/2024 8:30 AM SPORTS MEDICINE SPECIALIST Office Visit [facility]-O'F allon THREE [facility], [facility] [address] [place] [address] Dominick Mccloud MD Three [facility]. [facility] [address] [place] [address] Scheduled Procedures Name Priority Associated Diagnoses Date/Ti me REMOVAL PLATE SCREW OR PIN SCHED BY FAX 02/08/24 [facility] PHONE ASSESS 03/28/2024 7:30 AM SPORTS MEDICINE SPECIALIST documented as of this encounter Procedures Procedure Name Priority Date/Time Associated Diagnosis Comments IMAGE GENERIC Routine 07/05/2019 documented in this encounter Results * IMAGE STUDY (07/05/2019) Anatomical Region Laterality Modality Other us Documents Scanned SCANNING Edited Result - Final documented in this encounter Visit Diagnoses Not on filedocumented in this encounter Care Teams Spirits Model Relationship Specialty Start Date End Date Clara Stanley APNP [address] [place] [address] PCP - General NURSE PRACTITIONER 06/01/18 Dominick Mccloud MD [facility]. [facility] [address] [place] [address] [place] Manager Finance CARDIOVASCULAR DISEASE 03/28/19 documented as of this encounter
--- OUTSIDE RECORDS SUMMARY | 2024-03-02 04:01 | XMS_ITS | Encounter Summary ---
Author Organization [facility] Address [address] [place] [address]. [place], [place] [address] [place] [address] Care Team Providers Care Child Development Teacher Name Role Phone Clara Stanley Primary Care Provider [phone] Dominick Mccloud MD Unavailable [phone] Encounter Details Date Type Department Care [...] st Contact Info) Description 03/28/2024 7:30 AM BIODIESEL ENGINEERING MANAGER Hospital Encounter [facility] [place] [address] Antwan Stone DPM [address], [place] [address] 03/28/2024 7:30 AM BIODIESEL ENGINEERING MANAGER Anesthesia Event [place] [address] Shanelle Avila, VENDOR QUALITY SUPERVISOR 1 [place] [address] 03/28/2024 7:30 AM BIODIESEL ENGINEERING MANAGER - 03/28/2024 8:48 AM BIODIESEL ENGINEERING MANAGER Surgery [place] [address] Antwan Stone, DPÁngel [address], [place] [address] REMOVAL OF HARDWARE LEFT FOOT 04/05/2024 8:30 AM BIODIESEL ENGINEERING MANAGER Office Visit [facility] THREE [facility], [facility] [address] [place] [address] Dominick Mccloud MD Three [facility]. [facility] [address] [place], [place] [address] Scheduled Procedures Name Priority Associated Diagnoses Date/Ti me REMOVAL PLATE SCREW OR PIN SCHED BY FAX 02/08/24 [facility] PHONE ASSESS 03/28/2024 7:30 AM BIODIESEL ENGINEERING MANAGER documented as of this encounter Visit Diagnoses Not on filedocumented in this encounter Care Teams Child Development Teacher Relationship Specialty Start Date End Date Clara Stanley APNP [address] [place] [address] PCP - General NURSE PRACTITIONER 06/01/18 Dominick Mccloud MD Three [facility]. [facility] [address] [place], [place] [address] [place] Wood Stainer CARDIOVASCULAR DISEASE 03/28/19 documented as of this encounter
--- OUTSIDE RECORDS SUMMARY | 2024-03-02 04:01 | XMS_ITS | Encounter Summary ---
Author Organization [facility] Address [address] [place] [address]. [place], [place] [address] [place] [address] Care Team Providers Care Hides And Skins Colorer Name Role Phone Clara Stanley Primary Care Provider [phone] Dominick Mccloud MD Unavailable [phone] Reason for Visit * Reason Onset Date Comments Medication 09/05/2019 Encounter Details Date Type Department Care Team (Late st Contact Info) Description 09/05/2019 Telephone [facility] Medical Group Family & Internal Medicine [facility] [address] [place] [address] Clara Stanley APNP [address] [place] [address] Medication Social History Tobacco Use [...] st Contact Info) Description 03/28/2024 7:30 AM CAR FERRY CAPTAIN Hospital Encounter [facility] [place] [address] Antwan Stone, DIEGO [address], [address] [place], [place] [address] 03/28/2024 7:30 AM CAR FERRY CAPTAIN Anesthesia Event [facility] [place], [place] [address] Shanelle Avila, SR. MANAGER 1 [place] [address] 03/28/2024 7:30 AM CAR FERRY CAPTAIN - 03/28/2024 8:48 AM CAR FERRY CAPTAIN Surgery [facility] [place] [address] Antwan Stone DPM [address], [place] [address] REMOVAL OF HARDWARE LEFT FOOT 04/05/2024 8:30 AM CAR FERRY CAPTAIN Office Visit [facility] THREE [facility], [facility] [address] [place] [address] Dominick Mccloud MD [facility]. [facility] [address] [place], [place] [address] Scheduled Procedures Name Priority Associated Diagnoses Date/Ti me REMOVAL PLATE SCREW OR PIN SCHED BY FAX 02/08/24 [facility] PHONE ASSESS 03/28/2024 7:30 AM CAR FERRY CAPTAIN documented as of this encounter Visit Diagnoses Diagnosis Neuropathy- Primary Mononeuritis of unspecified site Painful orthopaedic hardware (CMS/HCC)- Primary documented in this encounter Care Teams Hides And Skins Colorer Relationship Specialty Start Date End Date Clara Stanley APNP [address] [place] [address] PCP - General NURSE PRACTITIONER 06/01/18 Dominick Mccloud MD [facility]. [facility] [address] [place], [place] [address] [place] Optical Model Maker And Tester CARDIOVASCULAR DISEASE 03/28/19 documented as of this encounter
--- OUTSIDE RECORDS SUMMARY | 2024-03-02 04:01 | XMS_ITS | Encounter Summary ---
Author Organization [facility] Address [address] [place] [address]. [place], [place] [address] [place] [address] Care Team Providers Care Swimmer Name Role Phone Clara Stanley Primary Care Provider [phone] Dominick Mccloud MD Unavailable [phone] Reason for Referral * Allergy Testing (Routine) - Closed Specialty Diagnoses / Procedures Referred By Contrebekah t Referred To Contact ALLERGY Diagnoses Allergies Clara Stanley APNP [address] [place] [address] Phone: tel: fax: Tyree Hall MD [address] [place] [address] Phone: tel: fax: Referral ID Status Reason Start Date Expiration Date V isits Requested Visits Authorized [id number] Closed Specialty Services 07/11/2019 08/09/2020 100 100 Reason for Visit * Reason Onset Date Comments Referral Request 07/11/2019 Encounter Details Date Type Department Care Team (Late st Contact Info) Description 07/11/2019 Telephone [facility] Medical Group Family & Internal Medicine - [place] [address] [place] [address] Clara Stanley APNP [address] [place] [address] Referral Request Social History Tobacco [...] - 07/11/2019 4:[address] diorama model maker referral. * Anika Russell - 07/11/2019 3:53 PM CDT Pt is wanting a referral to diorama model maker because he normally has really bad allergies [...] st Contact Info) Description 03/28/2024 7:30 AM [facility] Hospital Encounter [facility] [place] [address] Antwan Stone DPM [address], [place] [address] 03/28/2024 7:30 AM OFFSHORE WIND TURBINE TECHNICIAN Anesthesia [place] [address] Shanelle Avila, RECEIVABLE CLERK 1 [place] [address] 03/28/2024 7:30 AM OFFSHORE WIND TURBINE TECHNICIAN - 03/28/2024 8:48 AM OFFSHORE WIND TURBINE TECHNICIAN Surgery [facility] [place] [address] Antwan Stone, DPM [address], [place] [address] REMOVAL OF HARDWARE LEFT FOOT 04/05/2024 8:30 AM OFFSHORE WIND TURBINE TECHNICIAN Office Visit [facility]-O'F allon THREE [facility] [address] [place] [address] Dominick Mccloud MD Three [facility] [address] [place] [address] Scheduled Procedures Name Priority Associated Diagnoses Date/Ti me REMOVAL PLATE SCREW OR PIN SCHED BY FAX 02/08/24 [facility] PHONE ASSESS 03/28/2024 7:30 AM OFFSHORE WIND TURBINE TECHNICIAN Scheduled Referrals Name Type Priority Associated Diagnoses Orde r Schedule Ambulatory referral to Allergy Referral Routine Allergies Ordered: 07/11/2019 documented as of this encounter Visit Diagnoses Diagnosis Allergies- Primary Painful orthopaedic hardware (CMS/HCC)- Primary documented in this encounter Care Teams Swimmer Relationship Specialty Start Date End Date Clara Stanley APNP [address] [place] [address] PCP - General NURSE PRACTITIONER 06/01/18 Dominick Mccloud MD Three [facility] [address] [place] [address] [place] Telephonic Nurse Case Manager CARDIOVASCULAR DISEASE 03/28/19 documented as of this encounter
--- OUTSIDE RECORDS SUMMARY | 2024-03-02 04:01 | XMS_ITS | Encounter Summary ---
Author Organization [facility] Address [address] [place] [address]. [place], [place] [address] [place] [address] Care Team Providers Care Medical Intern Name Role Phone Clara Stanley Primary Care Provider [phone] Dominick Mccloud MD Unavailable [phone] Encounter Details Date Type Department Care Team (Late st Contact Info) Description 04/27/2019 12:10 PM SHERIFF DEPUTY - 04/27/2019 11:59 PM [facility] Hospital Encounter [facility] [place] [address] Dominick Mccloud MD Three [facility]. [facility] [address] [place] [address] Discharge Disposition: Home or Self Care (Routine [...] AM [facility] Hospital Encounter [facility] [place] [address] Antwan Stone, DIEGO [address], [place] [address] 03/28/2024 7:30 AM SHERIFF DEPUTY Anesthesia Event [facility] [place] [address] Shanelle Avila, CONVEYOR INSTALLER [address] [place] [address] 03/28/2024 7:30 AM SHERIFF DEPUTY - 03/28/2024 8:48 AM SHERIFF DEPUTY Surgery [facility] [place] [address] Antwan Stone, DPM [address], [place] [address] REMOVAL OF HARDWARE LEFT FOOT 04/05/2024 8:30 AM SHERIFF DEPUTY Office Visit [facility]-O'F lonnie THREE [facility], [facility] [address] [place] [address] Dominick Mccloud MD Three [facility]. [facility] [address] [place] [address] Scheduled Procedures Name Priority Associated Diagnoses Date/Ti me REMOVAL PLATE SCREW OR PIN SCHED BY FAX 02/08/24 [facility] PHONE ASSESS 03/28/2024 7:30 AM SHERIFF DEPUTY documented as of this encounter Procedures Procedure Name Priority Date/Time Associated Diagnosis Comments LIPID PANEL Routine 04/27/2019 12:50 PM SHERIFF DEPUTY Mixed hyperlipidemia documented in this encounter Results * (ABNORMAL) LIPID PANEL (04/27/2019 12:50 PM SHERIFF DEPUTY) CHOLESTEROL 167 <200 MG/DL 04/27/2019 1:32 PM SHERIFF DEPUTY [facility] TRIGLYCERIDES 181(H) <150 MG/DL 04/27/2019 1:32 PM SHERIFF DEPUTY [facility] HDL 36(L) >40.0 MG/DL 04/27/2019 1:32 PM [facility] LDL (CALCULATED) 95 <100 MG/DL 04/27/2019 1:32 PM [facility] NON HDL CHOLESTEROL 131(H) <130 MG/DL 04/27/2019 1:32 PM [facility] CHOL/HDL RATIO 4.6(H) 0.0 - 4.5 04/27/2019 1:32 PM [facility] VLDL CALCULATION 36 5 - 55 MG/DL 04/27/2019 1:32 PM [facility] LIPID INTERPRETATION 04/27/2019 1:32 PM [facility] Comment: [facility] REPORT RECOMMENDATIONS: ?ADULT ?CHILD ??LOW RISK: ?CHOLESTEROL ? <200 ? <170 ?TRIGLYCERIDE ?<150 ?--- ?HDL ? >=60 ?--- ?LDL ? <100 ? <110 ??BORDERLINE: ?CHOLESTEROL ? 200-239 ?? 170-199 ?TRIGLYCERIDE ?150-199 ? --- ?HDL ?40-59 ?--- ?LDL ? 100-159 ?? 110-129 ??HIGH RISK: ?CHOLESTEROL ? >=240 ?>=200 ?TRIGLYCERIDE ?>=200 ? --- ?HDL ?<40 ?--- ?LDL ? >=160 ?>=130 04/27/2019 12:5 0 PM SHERIFF DEPUTY us Dominick Mccloud MD LABORATORY Final Result [facility] [address] [place] [address], documented in this encounter Visit Diagnoses Diagnosis Mixed hyperlipidemia Painful orthopaedic hardware (CMS/HCC)- Primary documented in this encounter Care Teams Medical Intern Relationship Specialty Start Date End Date Clara Stanley APNP [address] [place] [address] PCP - General NURSE PRACTITIONER 06/01/18 Dominick Mccloud MD Three [facility]. [facility] [address] [place] [address] Ha[place] Digital Imager CARDIOVASCULAR DISEASE 03/28/19 documented as of this encounter
--- OUTSIDE RECORDS SUMMARY | 2024-03-02 04:01 | XMS_ITS | Encounter Summary ---
Author Organization [facility] Address [address] [place] [address]. [place], [place] [address] [place] [address] Care Team Providers Care Skin Diver Name Role Phone Clara Stanley Primary Care Provider [phone] Dominick Mccloud MD Unavailable [phone] Encounter Details Date Type Department Care [...] st Contact Info) Description 03/28/2024 7:30 AM PIPE BENDING 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 Hospital Encounter [facility] [place] [address] Antwan Stone DPM [address], [place] [address] 03/28/2024 7:30 AM PIPE BENDING 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 Anesthesia [place] [address] Shanelle Avila, PANEL BEATER 1 [place] [address] 03/28/2024 7:30 AM PIPE BENDING 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 - 03/28/2024 8:48 AM PIPE BENDING 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 Surgery [place] [address] Antwan Stone, DPÁngel [address], [place] [address] REMOVAL OF HARDWARE LEFT FOOT 04/05/2024 8:30 AM PIPE BENDING 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 Office Visit [facility] THREE [facility], [facility] [address] [place] [address] Dominick Mccloud MD Three [facility]. [facility] [address] [place], [place] [address] Scheduled Procedures Name Priority Associated Diagnoses Date/Ti me REMOVAL PLATE SCREW OR PIN SCHED BY FAX 02/08/24 [facility] PHONE ASSESS 03/28/2024 7:30 AM PIPE BENDING 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 documented as of this encounter Visit Diagnoses Not on filedocumented in this encounter Care Teams Skin Diver Relationship Specialty Start Date End Date Clara Stanley APNP [address] [place] [address] PCP - General NURSE PRACTITIONER 06/01/18 Dominick Mccloud MD Three [facility]. [facility] [address] [place], [place] [address] [place] Baker Operator Automatic CARDIOVASCULAR DISEASE 03/28/19 documented as of this encounter
--- OUTSIDE RECORDS SUMMARY | 2024-03-02 04:01 | XMS_ITS | Encounter Summary ---
Author Organization [facility] Address [address] [place] [address]. [place], [place] [address] [place] [address] Care Team Providers Care Clay Dry Press Operator Name Role Phone Clara Stanley Primary Care Provider [phone] Dominick Mccloud MD Unavailable [phone] Encounter Details Date Type Department Care [...] st Contact Info) Description 03/28/2024 7:30 AM PRINTING SPECIALIST Hospital Encounter [facility] [place] [address] Antwan Stone DPM [address], [place] [address] 03/28/2024 7:30 AM PRINTING SPECIALIST Anesthesia [place] [address] Shanelle Avila, CRIMINAL JUDGE [address] [place] [address] 03/28/2024 7:30 AM PRINTING SPECIALIST - 03/28/2024 8:48 AM PRINTING SPECIALIST Surgery [place] [address] Antwan Stone, DPÁngel [address], [place] [address] REMOVAL OF HARDWARE LEFT FOOT 04/05/2024 8:30 AM PRINTING SPECIALIST Office Visit [facility] THREE [facility], [facility] [address] [place] [address] Dominick Mccloud MD Three [facility]. [facility] [address] [place], [place] [address] Scheduled Procedures Name Priority Associated Diagnoses Date/Ti me REMOVAL PLATE SCREW OR PIN SCHED BY FAX 02/08/24 [facility] PHONE ASSESS 03/28/2024 7:30 AM PRINTING SPECIALIST documented as of this encounter Visit Diagnoses Not on filedocumented in this encounter Care Teams Clay Dry Press Operator Relationship Specialty Start Date End Date Clara Stanley APNP [address] [place] [address] PCP - General NURSE PRACTITIONER 06/01/18 Dominick Mccloud MD Three [facility]. [facility] [address] [place], [place] [address] [place] Dry Starch Operator CARDIOVASCULAR DISEASE 03/28/19 documented as of this encounter
--- OUTSIDE RECORDS SUMMARY | 2024-03-02 04:01 | XMS_ITS | Encounter Summary ---
Author Organization [facility] Address [address] [place] [address]. [place] [address] [place] [address] Care Team Providers Care Factory Representative Name Role Phone Clara [place] Primary Care Provider [phone] Dominick Mccloud MD Unavailable [phone] Reason for Visit * Reason Comments [...] st Contact Info) Description 03/28/2024 7:30 AM [facility] Hospital Encounter [facility] [place] [address] Antwan Stone DPM [address], [place] [address] 03/28/2024 7:30 AM ONLINE PROGRAM COORDINATOR Anesthesia Event [place] [address] Shanelle Avila, SCHOOL CURRICULUM DEVELOPER [address] [place] [address] 03/28/2024 7:30 AM ONLINE PROGRAM COORDINATOR - 03/28/2024 8:48 AM ONLINE PROGRAM COORDINATOR Surgery [place] [address] Antwan Stone, DPM [address] [place] [address] REMOVAL OF HARDWARE LEFT FOOT 04/05/2024 8:30 AM ONLINE PROGRAM COORDINATOR Office Visit Darren Chaudhari-O'F allon THREE [facility], [address] [place] [address] Dominick Mccloud MD Three [facility]. [facility] [address] [place] [address] Scheduled Procedures Name Priority Associated Diagnoses Date/Ti me REMOVAL PLATE SCREW OR PIN SCHED BY FAX 02/08/24 [facility] PHONE ASSESS 03/28/2024 7:30 AM ONLINE PROGRAM COORDINATOR documented as of this encounter Procedures Procedure Name Priority Date/Time Associated Diagnosis Comments IMAGE GENERIC Routine 05/06/2019 documented in this encounter Results * IMAGE STUDY (05/06/2019) Anatomical Region Laterality Modality Other us Documents Scanned SCANNING Final Result documented in this encounter Visit Diagnoses Not on filedocumented in this encounter Care Teams Factory Representative Relationship Specialty Start Date End Date Clara [place] APNP [address] [place] [address] PCP - General NURSE PRACTITIONER 06/01/18 Dominick Mccloud MD Three [facility]. [facility] [address] [place] [address] [place] Marine Electrician CARDIOVASCULAR DISEASE 03/28/19 documented as of this encounter
--- OUTSIDE RECORDS SUMMARY | 2024-03-02 04:01 | XMS_ITS | Encounter Summary ---
Author Organization [facility] Address [address] [place] [address]. [place] [address] [place] [address] Care Team Providers Care Needle Bar Molder Name Role Phone Clara [place] Primary Care Provider [phone] Dominick Mccloud MD Unavailable [phone] Reason for Visit * Reason Comments Image [...] [facility] Hospital Encounter [facility] [place] [address] Antwan Stone DPM [address], [place] [address] 03/28/2024 7:30 AM WILDLIFE CONTROL OPERATOR Anesthesia Event [place] [address] Shanelle Avila, INDUCTION COORDINATION POWER ENGINEER [address] [place] [address] 03/28/2024 7:30 AM WILDLIFE CONTROL OPERATOR - 03/28/2024 8:48 AM WILDLIFE CONTROL OPERATOR Surgery [place] [address] Antwan Stone, DPM [address] [place] [address] REMOVAL OF HARDWARE LEFT FOOT 04/05/2024 8:30 AM WILDLIFE CONTROL OPERATOR Office Visit Darren Chaudhari-O'F allon THREE [facility], [address] [place] [address] Dominick Mccloud MD Three [facility]. [facility] [address] [place] [address] Scheduled Procedures Name Priority Associated Diagnoses Date/Ti me REMOVAL PLATE SCREW OR PIN SCHED BY FAX 02/08/24 [facility] PHONE ASSESS 03/28/2024 7:30 AM WILDLIFE CONTROL OPERATOR documented as of this encounter Procedures [...] on filedocumented in this encounter Care Teams Needle Bar Molder Relationship Specialty Start Date End Date Clara [place] APNP [address] [place] [address] PCP - General NURSE PRACTITIONER 06/01/18 Dominick Mccloud MD [facility] [address] [place] [address] [place] Rn Radiation Oncology CARDIOVASCULAR DISEASE 03/28/19 documented as of this encounter
--- OUTSIDE RECORDS SUMMARY | 2024-03-02 04:01 | XMS_ITS | Encounter Summary ---
Author Organization [facility] Address [address] [place] [address]. [place], [place] [address] [place] [address] Care Team Providers Care Maintenance Machine Repairer Name Role Phone Clara [place] Primary Care Provider [phone] Dominick Mccloud MD Unavailable [phone] Reason for Referral * Imaging (Routine) - Closed Specialty Diagnoses / Procedures Referred By Erik galdamez Referred To Contact RADIOLOGY Diagnoses Right lower lobe pulmonary nodule Procedures CT CHEST WO CON Clara [place] APNP [address] [place] [address] Phone: tel: fax: Referral ID Status Reason Start Date Expiration Date Visits Re quested Visits Authorized [id number] Closed 04/18/2019 07/17/2019 1 1 TAL MEDIA SPECIALIST Reason for Visit * Imaging (Routine) - Closed Specialty Diagnoses / Procedures Referred By Erik galdamez Referred To Contact RADIOLOGY Diagnoses Right lower lobe pulmonary nodule Procedures CT CHEST WO CON Clara [place] APNP [address] [place] [address] Phone: tel: fax: Referral ID Status Reason Start Date Expiration Date Visits Re quested Visits Authorized [id number] Closed 04/18/2019 07/17/2019 1 1 Encounter Details Date Type Department Care Team (Latest Contact Info) Description 04/22/2019 8:57 AM DIGITAL MEDIA SPECIALIST - 04/22/2019 11:59 PM DIGITAL MEDIA SPECIALIST [facility] [address] [place] [address] [place], ZEB [address] [place] [address] Discharge Disposition: Home or Self Care (Routine [...] of this. Can place referral as urgent. TAL MEDIA SPECIALIST documented in this encounter Plan of Treatment Upcoming Encounters Date Type Department Care Team (Late st Contact Info) Description 03/28/2024 7:30 AM DIGITAL MEDIA SPECIALIST Hospital Encounter [facility] [place] [address] Antwan Stone DPM [address] [place] [address] 03/28/2024 7:30 AM DIGITAL MEDIA SPECIALIST Anesthesia Event [facility] [address] Shanelle Avila, WINE SPECIALIST [address] [place] [address] 03/28/2024 7:30 AM DIGITAL MEDIA SPECIALIST - 03/28/2024 8:48 AM DIGITAL MEDIA SPECIALIST Surgery [facility] [address] Antwan Stone, DPM [address] [place] [address] REMOVAL OF HARDWARE LEFT FOOT 04/05/2024 8:30 AM DIGITAL MEDIA SPECIALIST Office Visit Darren Chaudhari-O'F allon THREE [facility] [address] [place], [place] [address] Dominick Mccloud MD Three [facility]. [facility] [address] [place], [place] [address] Scheduled Procedures Name Priority Associated Diagnoses Date/Ti me REMOVAL PLATE SCREW OR PIN SCHED BY FAX 02/08/24 S PHONE ASSESS 03/28/2024 7:30 AM DIGITAL MEDIA SPECIALIST documented as of this encounter Procedures Procedure Name Priority Date/Time Associated Diagnosis Comments CT CHEST WO CON Routine 04/22/2019 9:14 AM DIGITAL MEDIA SPECIALIST Right lower lobe pulmonary nodule documented in this encounter Results * CT CHEST WO CON (04/22/2019 9:14 AM DIGITAL MEDIA SPECIALIST) Anatomical Region Laterality Modality Chest Computed Tomogra phy 04/23/2019 9:42 PM DIGITAL MEDIA SPECIALIST Impressions 04/23/2019 9:48 PM DIGITAL MEDIA SPECIALIST IMPRESSION: 1. ??Indeterminate 1.3 cm lung nodule, right lower lobe, unchanged. RECOMMENDATION: Nodule >8 mm: LOW AND HIGH RISK PATIENT - ??Low dose CT chest without contrast at 3, 12, and 24 months; PET-CT; or tissue sampling. 2. ??Gynecomastia. 3. ??Sub-6 mm lung nodules, right middle lobe, unchanged. Interpreted By: Xander Emmanuel MD, 04/23/2019 9:42 PM Narrative 04/23/2019 9:48 PM DIGITAL MEDIA SPECIALIST EXAMINATION: CT Chest without contrast DATE: 04/22/2019 [...] Primary documented in this encounter Care Teams Maintenance Machine Repairer Relationship Specialty Start Date End Date Clara [place] APNP [address] [place] [address] PCP - General NURSE PRACTITIONER 06/01/18 Dominick Mccloud MD [facility] [address] [place] [address] [place]ro[place] Plastic Fixture Builder CARDIOVASCULAR DISEASE 03/28/19 documented as of this encounter
--- OUTSIDE RECORDS SUMMARY | 2024-03-02 04:01 | XMS_ITS | Encounter Summary ---
Author Organization [facility] Address [address] [place] [address]. [place] [address] [place] [address] Care Team Providers Care Airplane Engineer Name Role Phone Clara [place] Primary Care Provider [phone] Dominick Mccloud MD Unavailable [phone] Reason for Visit * Reason Comments Image [...] AM [facility] Hospital Encounter [facility] [place] [address] Antwan Stone DPM [address], [place] [address] 03/28/2024 7:30 AM CAVITY PUMP OPERATOR Anesthesia Event [facility] [address] Shanelle Avila, MEDICAL AFFAIRS DIRECTOR [address] [place] [address] 03/28/2024 7:30 AM CAVITY PUMP OPERATOR - 03/28/2024 8:48 AM CAVITY PUMP OPERATOR Surgery [facility] [place] [address] Antwan Stone, DPM [address], [place] [address] REMOVAL OF HARDWARE LEFT FOOT 04/05/2024 8:30 AM CAVITY PUMP OPERATOR Office Visit Darren Chaudhari-O'F allon THREE [facility], [facility] [address] [place] [address] Dominick Mccloud MD Three [facility]. [facility] [address] [place] [address] Scheduled Procedures Name Priority Associated Diagnoses Date/Ti me REMOVAL PLATE SCREW OR PIN SCHED BY FAX 02/08/24 [facility] PHONE ASSESS 03/28/2024 7:30 AM CAVITY PUMP OPERATOR documented as of this encounter Procedures Procedure Name Priority Date/Time Associated Diagnosis Comments IMAGE GENERIC Routine 06/28/2019 documented in this encounter Results * IMAGE STUDY (06/28/2019) Anatomical Region Laterality Modality Other us Documents Scanned SCANNING Edited Result - Final documented in this encounter Visit Diagnoses Not on filedocumented in this encounter Care Teams Airplane Engineer Relationship Specialty Start Date End Date Clara [place] APNP [address] [place] [address] PCP - General NURSE PRACTITIONER 06/01/18 Dominick Mccloud MD [facility]. [facility] [address] [place] [address] [place] Indoor Landscaper/Gardener CARDIOVASCULAR DISEASE 03/28/19 documented as of this encounter
--- OUTSIDE RECORDS SUMMARY | 2024-03-02 04:01 | XMS_ITS | Encounter Summary ---
Author Organization [facility] Address [address] [place] [address]. [place], [place] [address] [place] [address] Care Team Providers Care Employee Adviser Name Role Phone Clara [place] Primary Care Provider [phone] Dominick Mccloud MD Unavailable [phone] Encounter Details Date Type Department Care [...] st Contact Info) Description 03/28/2024 7:30 AM SUPERCHARGER REPAIR SUPERVISOR Hospital Encounter [facility] [place] [address] Antwan Stone DPM [address], [place] [address] 03/28/2024 7:30 AM SUPERCHARGER REPAIR SUPERVISOR Anesthesia Event [place] [address] Shanelle Avila, JET AIRCRAFT SERVICER [address] [place] [address] 03/28/2024 7:30 AM SUPERCHARGER REPAIR SUPERVISOR - 03/28/2024 8:48 AM SUPERCHARGER REPAIR SUPERVISOR Surgery [place] [address] Antwan Stone, DPÁngel [address] [place] [address] REMOVAL OF HARDWARE LEFT FOOT 04/05/2024 8:30 AM SUPERCHARGER REPAIR SUPERVISOR Office Visit [facility]ren Cardiovascular-O'F allon THREE [facility], [facility] [address] [place] [address] Dominick Mccloud MD Three [facility]. [facility] [address] [place], [place] [address] Scheduled Procedures Name Priority Associated Diagnoses Date/Ti me REMOVAL PLATE SCREW OR PIN SCHED BY FAX 02/08/24 [facility] PHONE ASSESS 03/28/2024 7:30 AM SUPERCHARGER REPAIR SUPERVISOR documented as of this encounter Visit Diagnoses Not on filedocumented in this encounter Care Teams Employee Adviser Relationship Specialty Start Date End Date Clara [place] APNP [address] [place] [address] PCP - General NURSE PRACTITIONER 06/01/18 Dominick Mccloud MD Three [facility]. [facility] [address] [place], [place] [address] Cornish Shafting Cleaner CARDIOVASCULAR DISEASE 03/28/19 documented as of this encounter
--- OUTSIDE RECORDS SUMMARY | 2024-03-02 04:01 | XMS_ITS | Encounter Summary ---
Author Organization [facility] Address [address] [place] [address]. [place] [address] [place] [address] Care Team Providers Care Marketing Copywriter Name Role Phone Clara [place] Primary Care Provider [phone] Dominick Mccloud MD Unavailable [phone] Reason for Visit * Reason Comments CT [...] 7:30 AM [facility] Hospital Encounter [facility] [place] [address] Antwan Stoen DPM [address] [place] [address] 03/28/2024 7:30 AM STRATIGRAPHY TEACHER Anesthesia [place] [address] Shanelle Avila, CHAIRMAN & CO FOUNDER [address] [place] [address] 03/28/2024 7:30 AM STRATIGRAPHY TEACHER - 03/28/2024 8:48 AM STRATIGRAPHY TEACHER Surgery [place] [address] Antwan Stone, DPM [address] [place] [address] REMOVAL OF HARDWARE LEFT FOOT 04/05/2024 8:30 AM STRATIGRAPHY TEACHER Office Visit Darren Chaudhari-O'F allon THREE [facility], [address] [place] [address] Dominick Mccloud MD Three [facility]. [facility] [address] [place] [address] Scheduled Procedures Name Priority Associated Diagnoses Date/Ti me REMOVAL PLATE SCREW OR PIN SCHED BY FAX 02/08/24 [facility] PHONE ASSESS 03/28/2024 7:30 AM STRATIGRAPHY TEACHER documented as of this encounter Procedures Procedure Name Priority Date/Time Associated Diagnosis Comments CT GENERIC Routine 05/03/2019 documented in this encounter Results * CT (05/03/2019) Anatomical Region Laterality Modality Other us Documents Scanned SCANNING Final Result documented in this encounter Visit Diagnoses Not on filedocumented in this encounter Care Teams Marketing Copywriter Relationship Specialty Start Date End Date Clara [place] APNP [address] [place] [address] PCP - General NURSE PRACTITIONER 06/01/18 Dominick Mccloud MD Three [facility]. [facility] [address] [place] [address] Melbeta Ticketer CARDIOVASCULAR DISEASE 03/28/19 documented as of this encounter
--- OUTSIDE RECORDS SUMMARY | 2024-03-02 04:01 | XMS_ITS | Encounter Summary ---
Author Organization [facility] Address [address] [place] [address]. [place], [place] [address] [place] [address] Care Team Providers Care Sanding Machine Operator Or Tender Name Role Phone Clara [place] Primary Care Provider [phone] Dominick Mccloud MD Unavailable [phone] Encounter Details Date Type Department Care [...] st Contact Info) Description 03/28/2024 7:30 AM FOREST ECONOMIST Hospital Encounter [facility] [place] [address] Antwan Stone DPM [address], [place] [address] 03/28/2024 7:30 AM FOREST ECONOMIST Anesthesia [place] [address] Shanelle Avila, CASINO HOST [address] [place] [address] 03/28/2024 7:30 AM FOREST ECONOMIST - 03/28/2024 8:48 AM FOREST ECONOMIST Surgery [place] [address] Antwan Stone, DPÁngel [address] [place] [address] REMOVAL OF HARDWARE LEFT FOOT 04/05/2024 8:30 AM FOREST ECONOMIST Office Visit Darren Cardiovascular-O'F allon THREE [facility], [facility] [address] [place] [address] Dominick Mccloud MD Three [facility]. [facility] [address] [place], [place] [address] Scheduled Procedures Name Priority Associated Diagnoses Date/Ti me REMOVAL PLATE SCREW OR PIN SCHED BY FAX 02/08/24 [facility] PHONE ASSESS 03/28/2024 7:30 AM FOREST ECONOMIST documented as of this encounter Visit Diagnoses Not on filedocumented in this encounter Care Teams Sanding Machine Operator Or Tender Relationship Specialty Start Date End Date Clara [place] APNP [address] [place] [address] PCP - General NURSE PRACTITIONER 06/01/18 Dominick Mccloud MD Three [facility]. [facility] [address] [place], [place] [address] [place] Furnace Senior Marketing Manager CARDIOVASCULAR DISEASE 03/28/19 documented as of this encounter
--- OUTSIDE RECORDS SUMMARY | 2024-03-02 04:01 | XMS_ITS | Encounter Summary ---
Author Organization [facility] Address [address] [place] [address]. [place], [place] [address] [place] [address] Care Team Providers Care Water Hydrant Installer Name Role Phone Irwin [place] Primary Care Provider [phone] Dominick Mccloud MD Unavailable [phone] Reason for Referral * Consultation (Routine) - Closed Specialty Diagnoses / Procedures Referred By Contac t Referred To Contact UNKNOWN PHYSICIAN SPECIALTY Diagnoses IIH (idiopathic intracranial hypertension) Irwin [place] APNP [address] [place] [address] Phone: tel: fax: Nevin [place] MD Referral ID Status Reason Start Date Expiration Date V isits Requested Visits Authorized [id number] Closed Specialty Services 06/30/2019 07/29/2020 99 99 Scheduling Instructions Insurance referral needed for Neuro cab supervisor Dr [place] for October 30 appt . Reason for Visit * Reason Onset Date Comments Referral 06/30/2019 Encounter Details Date Type Department Care Team (Late st Contact Info) Description 06/30/2019 Telephone [facility] - [place] [address] [place] [address] Irwin [place] APNP [address] [place] [address] Referral Social History Tobacco Use [...] Specialty: neuro ophthamology Reason for referral (diagnosis): [facility] Phone number unknown Fax number: [phone] Insurance: [employer] Appointment: 10/29/2019 Last office visit at this office: Last visit with IRWIN ST[place] in INTERNAL MEDICINE was on: 04/04/2019 in [facility] Future appointment scheduled: Future Appointments Date Time Provider Department Center 11/07/2019 10:15 AM [facility] documented in this encounter Plan of Treatment Upcoming Encounters Date Type Department Care Team (Late st Contact Info) Description 03/28/2024 7:30 AM PROTECTIVE SERVICES SOCIAL WORKER Hospital Encounter [facility] [place] [address] Antwan Stone DPM [address], [place] [address] 03/28/2024 7:30 AM PROTECTIVE SERVICES SOCIAL WORKER Anesthesia Event [facility] [place] [address] Shanelle Avila, HALL WORKER [address] [place] [address] 03/28/2024 7:30 AM PROTECTIVE SERVICES SOCIAL WORKER - 03/28/2024 8:48 AM PROTECTIVE SERVICES SOCIAL WORKER Surgery [facility] [place] [address] Antwan Stone, DPM [address] [place] [address] REMOVAL OF HARDWARE LEFT FOOT 04/05/2024 8:30 AM PROTECTIVE SERVICES SOCIAL WORKER Office Visit [place] [facility]F allon THREE [facility], [facility] [address] [place] [address] Dominick Mccloud MD Three [facility]. [facility] [address] [place], [place] [address] Scheduled Procedures Name Priority Associated Diagnoses Date/Ti me REMOVAL PLATE SCREW OR PIN SCHED BY FAX 02/08/24 [facility] PHONE ASSESS 03/28/2024 7:30 AM PROTECTIVE SERVICES SOCIAL WORKER Scheduled Referrals Name Type Priority Associated Diagnoses Orde r Schedule Ambulatory referral to Other Referral Routine IIH (idiopathic intracranial hypertension) Ordered: 06/30/2019 documented as of this encounter Visit Diagnoses Diagnosis IIH (idiopathic intracranial hypertension)- Primary Benign intracranial hypertension Painful orthopaedic hardware (CMS/HCC)- Primary documented in this encounter Care Teams Water Hydrant Installer Relationship Specialty Start Date End Date Irwin [place] APNP [address] [place] [address] PCP - General NURSE PRACTITIONER 06/01/18 Dominick Mccloud MD [facility]. [facility] [address] [place] [address] [place]ler Staff Mine Warfare Officer CARDIOVASCULAR DISEASE 03/28/19 documented as of this encounter
--- OUTSIDE RECORDS SUMMARY | 2024-03-02 04:01 | XMS_ITS | Encounter Summary ---
Author Organization [facility] Address [address] [place] [address]. [place], [place] [address] [place] [address] Care Team Providers Care Deputy County Counsel Name Role Phone Clara Stanley Primary Care Provider [phone] Dominick Mccloud MD Unavailable [phone] Alexis Lopez MD Unavailable [phone] Kip Del Rio MD Unavailable [phone] Reason for Referral * Surgical (Routine) - Closed Specialty Diagnoses / Procedures Referred By Contac t Referred To Contact Diagnoses Varicose veins of right lower extremity with pain Procedures Case request operating room: STAB PHLEBECTOMY Antwan Milton MD [facility]. [facility] [address] [place] [address] Phone: tel: fax: [place] [address] Phone: tel: Referral ID Status Reason Start Date Expiration Date Visits Re quested Visits Authorized [id number] Closed 10/31/2019 11/10/2020 1 1 Encounter Details Date Type Department Care Team (Late st Contact Info) Description 10/11/2019 Prep for Procedure [facility] [place], [address] [address] Antwan Milton MD [facility]. [facility] [address] [place] [address] Social History Tobacco Use Types Packs/Day Years [...] st Contact Info) Description 03/28/2024 7:30 AM INVENTORY CONTROL ASSISTANT Hospital Encounter [facility] [place] [address] Antwan Stone, DPÁngel [address], [place] [address] 03/28/2024 7:30 AM INVENTORY CONTROL ASSISTANT Anesthesia Event [facility] [place] [address] Shanelle Avila, CULINARY ART TEACHER [address] [place] [address] 03/28/2024 7:30 AM INVENTORY CONTROL ASSISTANT - 03/28/2024 8:48 AM INVENTORY CONTROL ASSISTANT Surgery [facility] [place] [address] Antwan Stone DPM [address], [place] [address] REMOVAL OF HARDWARE LEFT FOOT 04/05/2024 8:30 AM INVENTORY CONTROL ASSISTANT Office Visit [facility], [facility] [address] [place], [place] [address] Dominick Mccloud MD [facility]. [facility] [address] [place] [address] Scheduled Orders Name Type Priority Associated Diagnoses Orde r Schedule Case request operating room: STAB PHLEBECTOMY Case Request Routine Varicose veins of right lower extremity with pain Once for 1 Occurrences starting 10/11/2019 until 10/11/2019 Scheduled Procedures Name Priority Associated Diagnoses Date/Ti me REMOVAL PLATE SCREW OR PIN SCHED BY FAX 02/08/24 [facility] PHONE ASSESS 03/28/2024 7:30 AM INVENTORY CONTROL ASSISTANT documented as of this encounter Visit Diagnoses Diagnosis Varicose veins of right lower extremity with pain- Primary Varicose veins of lower extremities with other complications Painful orthopaedic hardware (CMS/HCC)- Primary documented in this encounter Additional Health Concerns Infection Onset Date Last Indicated Resolved Time COVID-19 Rule Out 10/28/2019 10/28/2019 10/30/2019 8:53 AM CDT documented as of this encounter Care Teams Deputy County Counsel Relationship Specialty Start Date End Date Clara Stanley APNP [address] [place] [address] PCP - General NURSE PRACTITIONER 06/01/18 Dominick Mccloud MD [facility]. [facility] [address] [place] [address] [facility] Worker CARDIOVASCULAR DISEASE 03/28/19 Alexis Lopez MD [address] [facility] [address] [address] PULMONARY DISEASE 10/21/19 Kip Del Rio MD [address] [facility] [address] [place] [address] MEDICAL ONCOLOGY 02/24/24 documented as of this encounter
--- OUTSIDE RECORDS SUMMARY | 2024-03-02 04:01 | XMS_ITS | Encounter Summary ---
Author Organization [facility] Address [address] [place] [address]. [place] [address] [place] [address] Care Team Providers Care Curing Machine Operator Name Role Phone Clara Stanley Primary Care Provider [phone] Dominick Mccloud MD Unavailable [phone] Reason for Visit * Reason Comments Lab [...] [facility] Hospital Encounter [facility] [place] [address] Antwan Stone DPM [address], [place] [address] 03/28/2024 7:30 AM MEDICAL STAFF ASSISTANT Anesthesia Event [place] [address] Shanelle Avila, GUSSET EDGER 1 [place] [address] 03/28/2024 7:30 AM MEDICAL STAFF ASSISTANT - 03/28/2024 8:48 AM MEDICAL STAFF ASSISTANT Surgery [place] [address] Antwan Stone, DPM [address], [place] [address] REMOVAL OF HARDWARE LEFT FOOT 04/05/2024 8:30 AM MEDICAL STAFF ASSISTANT Office Visit [facility] THREE [facility], [facility] [address] [place] [address] Dominick Mccloud MD [facility]. [facility] [address] [place], [place] [address] Scheduled Procedures Name Priority Associated Diagnoses Date/Ti me REMOVAL PLATE SCREW OR PIN SCHED BY FAX 02/08/24 [facility] PHONE ASSESS 03/28/2024 7:30 AM MEDICAL STAFF ASSISTANT documented as of this encounter Procedures Procedure Name Priority Date/Time Associated Diagnosis Comments OUTSIDE LAB (SCAN ORDER) Routine 05/05/2019 documented in this encounter Results * OUTSIDE LAB (05/05/2019) 05/05/2019 us Documents Scanned SCANNING Final Result [facility] ONBASE documented in this encounter Visit Diagnoses Not on filedocumented in this encounter Care Teams Curing Machine Operator Relationship Specialty Start Date End Date Clara Stanley APNP [address] [place] [address] PCP - General NURSE PRACTITIONER 06/01/18 Dominick Mccloud MD [facility] [address] [place] [address] Guthrie Ironer CARDIOVASCULAR DISEASE 03/28/19 documented as of this encounter
--- OUTSIDE RECORDS SUMMARY | 2024-03-02 04:01 | XMS_ITS | Encounter Summary ---
Author Organization [facility] Address [address] [place] [address]. [place], [place] [address] [place] [address] Care Team Providers Care Java Web User Interface Developer Name Role Phone Clara Stanley Primary Care Provider [phone] Dominick Mccloud MD Unavailable [phone] Reason for Visit * Reason Comments Physical Encounter Details Date Type Department Care Team (Late st Contact Info) Description 09/26/2019 12:40 PM CDT Office Visit [facility] Medical Group Family & Internal Medicine [place] [address] [place] [address] Clara Stanley APNP [facility] [place] [address] Physical Social History Tobacco Use [...] continues to follow up with both his new accounts representative and CT surgeon from [facility]. He is due for his dental appt and is UTD with his eye exam. Anxiety - for the most part symptoms are controlled. Tolerates his lorazepam well with no bothersome side effects. Requesting a refill of lorazepam. [place] ANESTHESIOLOGY TEACHER checked and found to be appropriate. HTN - tolerates meds well and BP is well controlled. He denies any CP, SOB, WARD, dizziness, heart palpitations or lower extremity edema. HLD - Tolerates his statin well. Denies any myalgias. Lipids due and will be obtained today. Asthma - has been diagnosed with mild asthma after his new accounts representative performed a methacholine challenge and he failed. [...] Stable. Continue follow-up with CT surgeon and new accounts representative as scheduled. 7. IIH (idiopathic intracranial hypertension) [...] st Contact Info) Description 03/28/2024 7:30 AM SOFTWARE TEST ENGINEER Hospital Encounter [facility] [place] [address] Antwan Stone, DIEGO [address], [place] [address] 03/28/2024 7:30 AM SOFTWARE TEST ENGINEER Anesthesia [place] [address] Shanelle Avila, BRAIN SURGEON 1 [place] [address] 03/28/2024 7:30 AM SOFTWARE TEST ENGINEER - 03/28/2024 8:48 AM SOFTWARE TEST ENGINEER Surgery [place] [address] Antwan Stone, DIEGO [address], [place] [address] REMOVAL OF HARDWARE LEFT FOOT 04/05/2024 8:30 AM SOFTWARE TEST ENGINEER Office Visit [facility]-O'F allon THREE [facility], [facility] [address] [place] [address] Dominick Mccloud MD [facility]. [facility] [address] [place] [address] Scheduled Procedures Name Priority Associated Diagnoses Date/Ti me REMOVAL PLATE SCREW OR PIN SCHED BY FAX 02/08/24 JUANIT[facility] PHONE ASSESS 03/28/2024 7:30 AM SOFTWARE TEST ENGINEER documented as of this encounter Procedures Procedure Name Priority Date/Time Associated Diagnosis Comments VENIPUNC ARM DRAW Routine 09/26/2019 2:21 PM CDT Routine medical exam documented in this encounter Results * (ABNORMAL) COMPREHENSIVE METABOLIC PANEL (09/26/2019 1:52 PM CDT) [facility] GLUCOSE 85 70 - 99 MG/DL 09/26/2019 8:03 PM CDT [facility] BUN 14 7 - 18 MG/DL 09/26/2019 8:03 PM CDT [facility] CREATININE S/P/B 0.87 0.7 - 1.3 MG/DL 09/26/2019 8:03 PM CDT [facility] SODIUM S/P/B 139 136 - 145 MMOL/L 09/26/2019 8:03 PM CDT [facility] POTASSIUM S/P/B 3.9 3.5 - 5.1 MMOL/L 09/26/2019 8:03 PM CDT [facility] CHLORIDE S/P/B 110(H) 100 - 108 MMOL/L 09/26/2019 8:03 PM CDT [facility] CO2 22.6 21 - 32 MMOL/L 09/26/2019 8:03 PM CDT [facility] CALCIUM S/P/B 9.4 8.5 - 10.1 MG/DL 09/26/2019 8:03 PM CDT [facility] BILIRUBIN TOTAL S/P/B 0.2 0.2 - 1.2 MG/DL 09/26/2019 8:03 PM CDT [facility] Comment: THIS ASSAY IS NOT RECOMMENDED FOR PATIENTS UNDERGOING TREATMENT WITH ELTROMBOPAG DUE TO THE POTENTIAL FOR FALSELY ELEVATED RESULTS. TOTAL PROTEIN S/P/B 8.0 6.4 - 8.2 G/DL 09/26/2019 8:03 PM CDT [facility] ALBUMIN S/P/B 4.0 3.4 - 5.0 G/DL 09/26/2019 8:03 PM CDT [facility] AST 17 15 - 37 U/L 09/26/2019 8:03 PM CDT [facility] ALT 21 16 - 60 U/L 09/26/2019 8:03 PM CDT [facility] ALKALINE PHOSPHATASE S/P/B 136 50 - 136 U/L 09/26/2019 8:03 PM CDT [facility] ANION GAP 6.4 5 - 15 MMOL/L 09/26/2019 8:03 PM CDT [facility] BUN CREATININE RATIO 16.0 6 - 26 09/26/2019 8:03 PM CDT [facility] A/G RATIO 1.0 1.0 - 2.0 RATIO 09/26/2019 8:03 PM CDT [facility] EGFR NON-AFR. AMER. >90 >90 ML/MIN/1.7 3 M2 09/26/2019 8:03 PM CDT [facility] EGFR AFR. AMER. >90 >90 ML/MIN/1.7 3 M2 09/26/2019 8:03 PM CDT [facility] Comment: NOTE: eGFR is not calculated for patients <18 years of age. This is an estimated GFR (CKD EPI) and should not be used for calculating drug doses. 09/26/2019 1:52 PM CDT Clara CARRINGTON LABORATORY Final Resul t [facility] [address] [place] [address], [place] [phone] * URIC ACID BLOOD (09/26/2019 1:52 PM CDT) URIC ACID 6.3 3.5 - 7.2 MG/DL 09/26/2019 8:03 PM CDT [facility] 09/26/2019 1:52 PM CDT Clara CARRINGTON LABORATORY Final Resul t [facility] [address] [place] [address], * URINALYSIS WI REFLEX TO CULTURE (09/26/2019 1:52 PM CDT) SPECIMEN TYPE URINE CLEAN CATCH 09/26/2019 6:35 PM CDT [facility] COLOR (U) YELLOW 09/26/2019 7:56 PM CDT [facility] TRANSPARENCY CLEAR 09/26/2019 7:56 PM CDT [facility] SPECIFIC GRAVITY (U) 1.024 1.001 - 1.030 09/26/2019 7:56 PM CDT [facility] U PH 5.5 5.0 - 9.0 09/26/2019 7:56 PM CDT [facility] LEUKOCYTES (U) NEGATIVE NEGATIVE 09/26/2019 7:56 PM CDT [facility] NITRITES NEGATIVE NEGATIVE 09/26/2019 7:56 PM CDT [facility] PROTEIN (U) NEGATIVE <30 MG/DL 09/26/2019 7:56 PM CDT [facility] URINE GLUCOSE NORMAL NORMAL MG/DL 09/26/2019 7:56 PM CDT [facility] KETONES MG/DL (U) NEGATIVE NEGATIVE MG/DL 09/26/2019 7:56 PM CDT [facility] UROBILINOGEN NORMAL NORMAL MG/DL 09/26/2019 7:56 PM CDT [facility] BILIRUBIN (U) NEGATIVE NEGATIVE MG/DL 09/26/2019 7:56 PM CDT [facility] BLOOD (U) NEGATIVE NEGATIVE 09/26/2019 7:56 PM CDT [facility] CULTURE & SENSITIVITY INDICATED? CULTURE IS NOT INDICATED 09/26/2019 7:56 PM CDT [facility] MUCUS FEW /LPF 09/26/2019 7:56 PM CDT [facility] HYALINE CASTS RARE /LPF 09/26/2019 7:56 PM CDT [facility] WBC/HPF 3 <6 /HPF 09/26/2019 7:56 PM CDT [facility] RBC/HPF 1 <6 /HPF 09/26/2019 7:56 PM CDT [facility] CA OXALATE CRYSTALS RARE /HPF 09/26/2019 7:56 PM CDT [facility] SQUAMOUS EPITHELIALS RARE /HPF 09/26/2019 7:56 PM CDT [facility] URINE SPECIMEN OBTAINED BY CLEAN CATCH PROCEDURE / Unknown 09/26/2019 1:52 PM CDT Clara CARRINGTON URINE ORDERABLES Final Resu lt Performing Organization Address City/[facility]/ZIP Co de Phone Number [facility] [address] [place] [address], [place] [phone] * TSH W/REFLEX (09/26/2019 1:52 PM CDT) TSH 2.580 0.358 - 3.74 uIU/ML 09/26/2019 8:03 PM CDT [facility] Comment: HIGH DOSES OF BIOTIN MAY INTERFERE WITH THIS TEST RESULT. CORRELATION TO CLINICAL HISTORY AND PRESENTATION RECOMMENDED. FREE T4 NOT INDICATED 09/26/2019 1:52 PM CDT Clara CARRINGTON LABORATORY Final Resul t Performing Organization Address City/[facility]/ZIP Co de Phone Number [facility] [address] [place] [address], [place] [phone] * (ABNORMAL) LIPID PANEL (09/26/2019 1:52 PM CDT) [facility] Signature CHOLESTEROL 196 <200 MG/DL 09/26/2019 8:03 PM CDT [facility] TRIGLYCERIDES 150(H) <150 MG/DL 09/26/2019 8:03 PM T [facility] HDL 52 >40.0 MG/DL 09/26/2019 8:03 PM T [facility] LDL (CALCULATED) 114(H) <100 MG/DL 09/26/2019 8:03 PM T [facility] NON HDL CHOLESTEROL 144(H) <130 MG/DL 09/26/2019 8:03 PM T [facility] CHOL/HDL RATIO 3.8 0.0 - 4.5 09/26/2019 8:03 PM T [facility] VLDL CALCULATION 30 5 - 55 MG/DL 09/26/2019 8:03 PM T [facility] LIPID INTERPRETATION 09/26/2019 8:03 PM T [facility] Comment: NIH CONCENSUS REPORT RECOMMENDATIONS: [...] us Clara ISABEL LABORATORY Final Resul t [facility] [address] [place], [place] [address], * (ABNORMAL) CBC W/DIFF AUTOMATED (09/26/2019 1:52 PM CDT) WBC 11.6(H) 4.5 - 11.0 x10'3/uL 09/26/2019 7:44 PM CDT [facility] RBC 5.25 4.70 - 6.10 x10'6/uL 09/26/2019 7:44 PM CDT [facility] HGB 13.7(L) 14.0 - 18.0 G/DL 09/26/2019 7:44 PM CDT [facility] HCT 44.6 43.0 - 54.0 % 09/26/2019 7:44 PM CDT [facility] MCV 85.0 80.0 - 94.0 FL 09/26/2019 7:44 PM CDT [facility] MCH 26.1(L) 27.0 - 31.0 PG 09/26/2019 7:44 PM CDT [facility] MCHC 30.7(L) 32.0 - 36.0 G/DL 09/26/2019 7:44 PM CDT [facility] RDW 16.5(H) 11.5 - 14.5 % 09/26/2019 7:44 PM CDT [facility] PLT 298 130 - 400 x10'3/uL 09/26/2019 7:44 PM CDT [facility] MPV 12.4(H) 9.3 - 12.2 FL 09/26/2019 7:44 PM CDT [facility] DIFFERENTIAL TYPE AUTOMATED DIFFERENTIAL 09/26/2019 7:44 PM CDT [facility] NEUTROPHILS % 72.2 % 09/26/2019 7:44 PM CDT [facility] LYMPHOCYTES % 14.0 % 09/26/2019 7:44 PM CDT [facility] MONOCYTES % 8.7 % 09/26/2019 7:44 PM CDT [facility] EOSINOPHILS 3.9 % 09/26/2019 7:44 PM CDT [facility] BASOPHILS 0.6 % 09/26/2019 7:44 PM CDT [facility] IMMATURE GRANS % 0.6 % 09/26/19 20 7:44 PM CDT [facility] ABS. NEUTROPHILS TOTAL 8.34(H) 1.80 - 7.70 x10'3/uL 09/26/2019 7:44 PM CDT [facility] ABS. LYMPHOCYTES 1.62 1.00 - 4.80 x10'3/uL 09/26/2019 7:44 PM CDT [facility] ABS. MONOCYTES 1.00(H) 0.30 - 0.82 x10'3/uL 09/26/2019 7:44 PM CDT [facility] ABS. EOSINOPHILS 0.45 0.04 - 0.54 x10'3/uL 09/26/2019 7:44 PM CDT [facility] ABS. BASOPHILS 0.07 0.01 - 0.08 x10'3/uL 09/26/2019 7:44 PM CDT [facility] ABS. IMMATURE GRANULOCYTES 0.07 0.00 - 0.49 x10'3/uL 09/26/2019 7:44 PM CDT [facility] 09/26/2019 1:52 PM CDT Clara CARRINGTON LABORATORY Final Resul t [facility] [address] [place] [address], documented in this encounter Visit Diagnoses Diagnosis [...] Primary documented in this encounter Care Teams Java Web User Interface Developer Relationship Specialty Start Date End Date Clara Stanley APNP [address] [place] [address] PCP - General NURSE PRACTITIONER 06/01/18 Dominick Mccloud MD [facility] [address] [place] [address] [employer] Supervisor Of Engines CARDIOVASCULAR DISEASE 03/28/19 documented as of this encounter
--- OUTSIDE RECORDS SUMMARY | 2024-03-02 04:01 | XMS_ITS | Encounter Summary ---
Author Organization [facility] Address [address] [place] [address]. [place], [place] [address] [place] [address] Care Team Providers Care Guide Setter Name Role Phone Clara Stanley Primary Care Provider [phone] Dominick Mccloud MD Unavailable [phone] Reason for Visit * Reason Onset Date Comments Follow Up Call 08/11/2019 Encounter Details Date Type Department Care Team (Late st Contact Info) Description 08/11/2019 Telephone [facility] Medical Group Family & Internal Medicine [facility] [address] [place] [address] Clara Stanley APNP [address] [place] [address] Follow Up Call Social History [...] st Contact Info) Description 03/28/2024 7:30 AM INTER FOLD ROLL CUTTER Hospital Encounter [facility] [place] [address] Antwan Stone, DIEGO [address] [place], [place] [address] 03/28/2024 7:30 AM INTER FOLD ROLL CUTTER Anesthesia Event [place] [address] Shanelle Avila, IMPROVEMENT MANAGER [address] [place] [address] 03/28/2024 7:30 AM INTER FOLD ROLL CUTTER - 03/28/2024 8:48 AM INTER FOLD ROLL CUTTER Surgery [place] [address] Antwan Stone, DIEGO [address] [place] [place], [place] [address] REMOVAL OF HARDWARE LEFT FOOT 04/05/2024 8:30 AM INTER FOLD ROLL CUTTER Office Visit Darren Chaudhari-O'F allon THREE [facility], [facility] [address] [place] [address] Dominick Mccloud MD Three [facility]. [facility] [address] [place] [address] Scheduled Procedures Name Priority Associated Diagnoses Date/Ti me REMOVAL PLATE SCREW OR PIN SCHED BY FAX 02/08/24 [facility] PHONE ASSESS 03/28/2024 7:30 AM INTER FOLD ROLL CUTTER documented as of this encounter Visit Diagnoses Not on filedocumented in this encounter Care Teams Guide Setter Relationship Specialty Start Date End Date Clara Stanley APNP [address] [place] [address] PCP - General NURSE PRACTITIONER 06/01/18 Domiinck Mccloud MD [facility] [address] [place] [address] Fely Distance Learning Program Coordinator CARDIOVASCULAR DISEASE 03/28/19 documented as of this encounter
--- OUTSIDE RECORDS SUMMARY | 2024-03-02 04:01 | XMS_ITS | Encounter Summary ---
Author Organization [facility] Address [address] [place] [address]. [place], [place] [address] [place] [address] Care Team Providers Care Candy Cutter Hand Name Role Phone Clara Stanley Primary Care Provider [phone] Dominick Mccloud MD Unavailable Reason for Visit * Reason Onset Date Comments Appointment Request 04/11/2019 Encounter Details Date Type Department Care Team (Late st Contact Info) Description 04/11/2019 Telephone [facility] Medical Group Multispecialty Care - [facility] [address] [facility] [place] [id number] Hector Delgado MD 3 [facility] [address] [place], [place] [phone] Appointment Request Social History Tobacco Use Types [...] the abdomen. would like a return call. TS OFFICER documented in this encounter Plan of Treatment Upcoming Encounters Date Type Department Care Team (Late st Contact Info) Description 03/28/2024 7:30 AM GRANTS OFFICER Hospital Encounter [facility] [place] [address] Antwan Stone, DIEGO [address], [place] [address] 03/28/2024 7:30 AM GRANTS OFFICER Anesthesia Event [facility] [address] Shanelle Avila, AERIAL HURRICANE HUNTER [address] [place] [address] 03/28/2024 7:30 AM GRANTS OFFICER - 03/28/2024 8:48 AM GRANTS OFFICER Surgery [facility] [address] Antwan Stone DPM [address], [place] [address] REMOVAL OF HARDWARE LEFT FOOT 04/05/2024 8:30 AM GRANTS OFFICER Office Visit Darren Chaudhari-O'F allon [facility], [place] [address] [place] [address] Dominick Mccloud MD Three [facility]. [facility] [address] [place] [address] Scheduled Procedures Name Priority Associated Diagnoses Date/Ti me REMOVAL PLATE SCREW OR PIN SCHED BY FAX 02/08/24 [facility] PHONE ASSESS 03/28/2024 7:30 AM GRANTS OFFICER documented as of this encounter Visit Diagnoses Not on filedocumented in this encounter Care Teams Candy Cutter Hand Relationship Specialty Start Date End Date Clara Stanley APNP [address] [place] [address] PCP - General NURSE PRACTITIONER 06/01/18 Dominick Mccloud MD [facility] [address] [place] [address] Fely Digital Content Specialist CARDIOVASCULAR DISEASE 03/28/19 documented as of this encounter
--- OUTSIDE RECORDS SUMMARY | 2024-03-02 04:01 | XMS_ITS | Encounter Summary ---
Author Organization [facility] Address [address] [place] [address]. [place], [place] [address] [place] [address] Care Team Providers Care Steeping Press Operator Name Role Phone Clara Stanley Primary Care Provider [phone] Dominick Mccloud MD Unavailable [phone] Reason for Visit * Reason Onset Date Comments TCM 05/20/2019 Encounter Details Date Type Department Care Team (Late st Contact Info) Description 05/20/[address] [facility] Family & Internal Medicine [facility] [address] [place] [phone] Clara Stanley APNP [address] [place] [address] TCM Social History Tobacco Use [...] schedule TCM. PT refused at this time. POWER PROJECT MANAGER * Cheri Steiner RN - 05/20/2019 10:10 AM CST LMTC 05/20/19 TCM from [facility] POWER PROJECT MANAGER documented in this encounter Plan of Treatment Upcoming Encounters Date Type Department Care Team (Late st Contact Info) Description 03/28/2024 7:30 AM WIND POWER PROJECT MANAGER Hospital Encounter [facility] [place] [address] Antwan Stone, DIEGO [address], [place] [address] 03/28/2024 7:30 AM WIND POWER PROJECT MANAGER Anesthesia Event [facility] OR [facility] [place] [address] Shanelle Avila, POWER SWITCHBOARD OPERATOR [address] [place] [address] 03/28/2024 7:30 AM WIND POWER PROJECT MANAGER - 03/28/2024 8:48 AM WIND POWER PROJECT MANAGER Surgery [place] [address] Antwan Stone DPM [address], [place] [address] REMOVAL OF HARDWARE LEFT FOOT 04/05/2024 8:30 AM WIND POWER PROJECT MANAGER Office Visit Darren Chaudhari-O'F allon THREE [facility], [facility] [address] [place] [address] Dominick Mccloud MD Three [facility]. [facility] [address] [place] [address] Scheduled Procedures Name Priority Associated Diagnoses Date/Ti me REMOVAL PLATE SCREW OR PIN SCHED BY FAX 02/08/24 [facility] PHONE ASSESS 03/28/2024 7:30 AM WIND POWER PROJECT MANAGER documented as of this encounter Visit Diagnoses Not on filedocumented in this encounter Care Teams Steeping Press Operator Relationship Specialty Start Date End Date Clara Stanley APNP [address] [place] [address] PCP - General NURSE PRACTITIONER 06/01/18 Dominick Mccloud MD [facility] [address] [place] [address] [place] Science And Operations Officer CARDIOVASCULAR DISEASE 03/28/19 documented as of this encounter
--- OUTSIDE RECORDS SUMMARY | 2024-03-02 04:01 | XMS_ITS | Encounter Summary ---
Author Organization [facility] Address [address] [place] [address]. [place], [place] [address] [place] [address] Care Team Providers Care Gaming Department Head Name Role Phone Clara Stanley Primary Care Provider [phone] Dominick Mccloud MD Unavailable [phone] Alexis Lopez MD Unavailable [phone] Encounter Details Date Type Department Care Team (Late st Contact Info) Description 10/28/2019 10:15 AM CDT - 10/28/2019 11:59 PM T Hospital Encounter [facility] Laboratory [address] [place], [place] [id number] Antwan Milton MD Three [facility]. [facility] [address] [place], [place] [phone] Discharge Disposition: Home or Self Care (Routine [...] mouth daily. vitamin D3, cholecalciferol, 1.25 MG (54727 UT) capsule Take 1 capsule (50,000 Units [...] st Contact Info) Description 03/28/2024 7:30 AM REFRIGERATION SERVICE TECHNICIAN Hospital Encounter [facility] [place] [address] Antwan Stone, DIEGO [address], [place] [address] 03/28/2024 7:30 AM REFRIGERATION SERVICE TECHNICIAN Anesthesia [place] [address] Shanelle Avila, CATALYST IMPREGNATOR [address] [place] [address] 03/28/2024 7:30 AM REFRIGERATION SERVICE TECHNICIAN - 03/28/2024 8:48 AM REFRIGERATION SERVICE TECHNICIAN [place] [address] Antwan cruz, DIEGO [address], [place] [address] REMOVAL OF HARDWARE LEFT FOOT 04/05/2024 8:30 AM REFRIGERATION SERVICE TECHNICIAN Office Visit [facility] THREE [facility], [facility] [address] [place] [address] Dominick Mccloud MD Three [facility]. [facility] [address] [place] [address] Scheduled Procedures Name Priority Associated Diagnoses Date/Ti me REMOVAL PLATE SCREW OR PIN SCHED BY FAX 02/08/24 [facility] PHONE ASSESS 03/28/2024 7:30 AM REFRIGERATION SERVICE TECHNICIAN documented as of this encounter Procedures Procedure Name Priority Date/Time Associated Diagnosis Comments CORONAVIRUS (COVID 19) STAT 10/28/2019 10:05 AM CDT Pre-Op Exam documented in this encounter Results * PRE-SURGICAL/PRE-PROCEDURE CORONAVIRUS (COVID 19) (10/28/2019 10:05 AM CDT) CORONAVIRUS SARS COV 2 PCR (RESP) NOT DETECTED NOT DETECTED 10/30/2019 8:53 AM CDT [employer] [facility] Comment: A Not Detected (negative) test [...] providers and patients using the following websites: https://www.[employer]no[employer].com/home/Covid-19/HCP/QuestIVD/fact- sheet.html https://www.[employer]ova/home/Covid-19/Patients/ QuestIVD/fact-sheet.html This test has been authorized by the FDA under an Emergency Use Authorization (EUA) for use by authorized laboratories. Due to the current public health emergency, [facility]dy is receiving a high volume of samples [...] about COVID-19 can be found at the [facility]dy website: www.[employer].Manipal Acunova/Covid19. Test performed at [facility] [address] [place], [place] ??[id number] Director: ENRICO VALDEZ DO,MPH NASOPHARYNGEAL SWAB / Unknown 10/28/2019 10:05 AM CDT us Antwan Milton MD MICROBIOLOGY - GENERAL ORDERABLE S Final Result [employer] [facility] [id number] [place] [address], documented in this encounter Visit Diagnoses Diagnosis Pre-op exam Preoperative examination, unspecified Painful orthopaedic hardware (CMS/HCC)- Primary documented in this encounter Additional Health Concerns Infection Onset Date Last Indicated Resolved Time COVID-19 Rule Out 10/28/2019 10/28/2019 10/30/2019 8:53 AM CDT documented as of this encounter Care Teams Gaming Department Head Relationship Specialty Start Date End Date Clara Stanley APNP [address] [place] [address] PCP - General NURSE PRACTITIONER 06/01/18 Dominick Mccloud MD [facility] [address] [place] [address] [place] Bung Dropper CARDIOVASCULAR DISEASE 03/28/19 Alexis Lopez MD [address] [facility] [address] [place] [address] PULMONARY DISEASE 10/21/19 documented as of this encounter
--- OUTSIDE RECORDS SUMMARY | 2024-03-02 04:01 | XMS_ITS | Encounter Summary ---
Author Organization [facility] Address [address] [place] [address]. [place], [place] [address] [place] [address] Care Team Providers Care Counter Attendant Name Role Phone Clara Stanley Primary Care Provider [phone] Dominick Mccloud MD Unavailable [phone] Encounter Details Date Type Department Care [...] st Contact Info) Description 03/28/2024 7:30 AM FLOUR INSPECTOR Hospital Encounter [facility] [place] [address] Antwan Stone DPM [address], [place] [address] 03/28/2024 7:30 AM FLOUR INSPECTOR Anesthesia [place] [address] Shanelle Avila, MANAGER CORPORATE [address] [place] [address] 03/28/2024 7:30 AM FLOUR INSPECTOR - 03/28/2024 8:48 AM FLOUR INSPECTOR Surgery [place] [address] Antwan Stone, DPÁngel [address], [place] [address] REMOVAL OF HARDWARE LEFT FOOT 04/05/2024 8:30 AM FLOUR INSPECTOR Office Visit [facility]-O'F allon THREE [facility], [facility] [address] [place] [address] Dominick Mccloud MD Three [facility]. [facility] [address] [place], [place] [address] Scheduled Procedures Name Priority Associated Diagnoses Date/Ti me REMOVAL PLATE SCREW OR PIN SCHED BY FAX 02/08/24 [facility] PHONE ASSESS 03/28/2024 7:30 AM FLOUR INSPECTOR documented as of this encounter Visit Diagnoses Not on filedocumented in this encounter Care Teams Counter Attendant Relationship Specialty Start Date End Date Clara Stanley APNP [address] [place] [address] PCP - General NURSE PRACTITIONER 06/01/18 Dominick Mccloud MD Three [facility]. [facility] [address] [place], [place] [address] [place] Nuclear Officer CARDIOVASCULAR DISEASE 03/28/19 documented as of this encounter
--- OUTSIDE RECORDS SUMMARY | 2024-03-02 04:01 | XMS_ITS | Encounter Summary ---
Author Organization [facility] Address [address] [place] [address]. [place], [place] [address] [place] [address] Care Team Providers Care Sweater Designer Name Role Phone Clara Stanley Primary Care Provider [phone] Dominick Mccloud MD Unavailable [phone] Reason for Visit * Reason Onset Date Comments Lab Results 09/28/2019 Encounter Details Date Type Department Care Team (Late st Contact Info) Description 09/28/2019 Telephone [facility] Family & Internal Medicine [facility] [address] [place] [address] Clara Stanley APNP [address] [place] [address] Lab Results Social History Tobacco [...] st Contact Info) Description 03/28/2024 7:30 AM FISH SALTER Hospital Encounter [facility] [place] [address] Antwan Stone, TEJASM [address], [place] [address] 03/28/2024 7:30 AM FISH SALTER Anesthesia Event [facility] [place] [address] Shanelle Avila, RAEANN [address] [facility] [place] [address] 03/28/2024 7:30 AM FISH SALTER - 03/28/2024 8:48 AM FISH SALTER Surgery [facility] OR [facility] [place] [address] Antwan Stone, DIEGO [address], [place] [address] REMOVAL OF HARDWARE LEFT FOOT 04/05/2024 8:30 AM FISH SALTER Office Visit [place] [facility] THREE [facility], [facility] [address] [place] [address] Dominick Mccloud MD Three [facility]. [facility] [address] [place] [address] Scheduled Orders Name Type Priority Associated Diagnoses [...] 02/08/24 [facility] PHONE ASSESS 03/28/2024 7:30 AM FISH SALTER documented as of this encounter Results * VITAMIN B12 / FOLATE (09/26/2019 1:52 PM CDT) [facility] VITAMIN B12 S/P/B 292 254 - 1,320 PG/ML 09/28/2019 3:27 PM CDT [facility] FOLATE 13.9 3.1 - 17.5 NG/ML 09/28/2019 3:27 PM CDT [facility] 09/26/2019 1:52 PM CDT Clara [facility] Final Resul t [facility] [address] [place] [address], [place] [phone] * FERRITIN (09/26/2019 1:52 PM CDT) [facility] FERRITIN 56.4 8.0 - 388.0 NG/ML 09/28/2019 3:05 PM CDT [facility] 09/26/2019 1:52 PM CDT Clara Lizeth [facility] Final Resul t [facility] [address] [place] [address], [place] [phone] * (ABNORMAL) IRON SAT PANEL (IRON,IBC,%SAT) (09/26/2019 1:52 PM CDT) IRON 62(L) 65.0 - 175.0 MCG/DL 09/28/2019 3:27 PM CDT [facility] IRON BINDING CAPACITY 371 250 - 450 MCG/DL 09/28/2019 3:27 PM CDT [facility] IRON SATURATION 17(L) 20 - 55 % 0 3:27 PM CDT [facility] 09/26/2019 1:52 PM CDT us Clara [facility] Final Resul t [facility] [address] [place] [address], [place] [phone] documented in this encounter Visit Diagnoses Diagnosis Abnormal CBC- Primary Other abnormal blood chemistry Painful orthopaedic hardware (CMS/HCC)- Primary documented in this encounter Care Teams Sweater Designer Relationship Specialty Start Date End Date Clara Stanley APNP [address] [place] [address] PCP - General NURSE PRACTITIONER 06/01/18 Dominick Mccloud MD Three [facility]. [facility] [address] [place] [address] [place] Frame Opener CARDIOVASCULAR DISEASE 03/28/19 documented as of this encounter
--- OUTSIDE RECORDS SUMMARY | 2024-03-02 04:01 | XMS_ITS | Encounter Summary ---
Author Organization [facility] Address [address] [place] [address]. [place], [place] [address] [place] [address] Care Team Providers Care Solar Energy System Installer Name Role Phone Irwin Stanley Primary Care Provider [phone] Dominick Mccloud MD Unavailable [phone] Alexis Lopez MD Unavailable [phone] Reason for Visit * Auth/Cert Specialty Diagnoses / Procedures Referred By Erik [email or web address] Referred To Contact Diagnoses Varicose veins of right lower extremity with pain VARICOSE VEINS OF RIGHT LOWER EXTREMITY WITH PAIN Procedures RIGHT STAB PHLEBECTOMY Referral ID Status Reason Start Date Expiration Date Visits Re quested Visits Authorized [id number] 1 1 Encounter Details Date Type Department Care Team (Late st Contact Info) Description 10/31/2019 8:05 AM CDT - 10/31/2019 1:15 PM T Hospital Encounter [facility] [place] [address] Antwan Pineda MD Three [facility]. [facility] [address] [place] [address] Discharge Disposition: Home or Self Care (Routine [...] Care Everywhere. * Surgical Wound Discharge Instructions (Welsh) * Hydrocodone and Acetaminophen, ADULT (Welsh) * General Anesthesia Discharge Instructions (Welsh) documented in this encounter Medications at Time of Discharge cetirizine (ZYRTEC) 10 MG tablet Take 1 tablet (10 mg total) by mouth daily. 5 Multiple Vitamins-Minerals (MULTIVITAMIN ADULT OR) Take 1 tablet by mouth daily. vitamin C 1000 MG tablet Take 1 tablet (1,000 mg total) by mouth daily. vitamin D3, cholecalciferol, 1.25 MG (78472 UT) capsule Take 1 capsule (50,000 Units [...] Doc Abstract vitamin D3, cholecalciferol, 1.25 MG (15387 UT) capsule Take 50,000 Units by mouth [...] 5 incisions were made during the procedure. #[id number] /NTS * OR PreOp - Joyce Glover [...] tolerance in past 6 months. Patient sees private secretary Dr. Mccloud and previous cardiac testing copied. Patient scheduled for COVID testing 10/28/19 High risk LEONOR Patient sees senior underwriting assistant Dr. Lopez with recent hx of lung [...] done at U. Do you see a private secretary? Who is it? Dr. Mccloud Telephone consent obtained from patient for COVID-19 testing. Patient agrees to comply with self-isolation as instructed until day of surgery. Patient expressed understanding. documented in this encounter Plan of Treatment Upcoming Encounters Date Type Department Care Team (Late st Contact Info) Description 03/28/2024 7:30 AM INDUSTRIAL PSYCHOLOGY TEACHER Hospital Encounter [facility] [place] [address] Antwan Stone, DIEGO [address] [place], [place] [address] 03/28/2024 7:30 AM INDUSTRIAL PSYCHOLOGY TEACHER Anesthesia [place] [address] Shanelle Avila, ABSTRACTER [address] [place] [address] 03/28/2024 7:30 AM INDUSTRIAL PSYCHOLOGY TEACHER - 03/28/2024 8:48 AM INDUSTRIAL PSYCHOLOGY TEACHER Surgery [place] [address] Antwan Stone, DIEGO [address] [place], [place] [address] REMOVAL OF HARDWARE LEFT FOOT 04/05/2024 8:30 AM INDUSTRIAL PSYCHOLOGY TEACHER Office Visit [facility] Cardiovascular-O'F allon THREE [facility], [facility] [address] [place] [address] Dominick Mccloud MD Three [facility]. [facility] [address] [place] [address] Scheduled Procedures Name Priority Associated Diagnoses Date/Ti me REMOVAL PLATE SCREW OR PIN SCHED BY FAX 02/08/24 KAYLIE PHONE ASSESS 03/28/2024 7:30 AM INDUSTRIAL PSYCHOLOGY TEACHER documented as of this encounter Procedures [...] - 99 MG/DL 10/31/2019 10:14 AM CDT [facility] BUN 16 7 - 18 MG/DL 10/31/2019 10:14 AM CDT [facility] CREATININE S/P/B 0.74 0.7 - 1.3 MG/DL 10/31/2019 10:14 AM CDT [facility] SODIUM S/P/B 137 136 - 145 MMOL/L 10/31/2019 10:14 AM CDT [facility] POTASSIUM S/P/B 4.9 3.5 - 5.1 MMOL/L 10/31/2019 10:14 AM CDT [facility] Comment:SLIGHT HEMOLYSIS, RE SULT MAY BE AFFECTED. CHLORIDE S/P/B 112(H) 100 - 108 MMOL/L 10/31/2019 10:14 AM CDT [facility] CO2 19.8(L) 21 - 32 MMOL/L 10/31/2019 10:14 AM CDT [facility] CALCIUM S/P/B 9.0 8.5 - 10.1 MG/DL 10/31/2019 10:14 AM T [facility] BILIRUBIN TOTAL S/P/B 0.6 0.2 - 1.2 MG/DL 10/31/2019 10:14 AM [facility] Comment: THIS ASSAY IS NOT RECOMMENDED FOR PATIENTS UNDERGOING TREATMENT WITH ELTROMBOPAG DUE TO THE POTENTIAL FOR FALSELY ELEVATED RESULTS. TOTAL PROTEIN S/P/B 7.6 6.4 - 8.2 G/DL 10/31/2019 10:14 AM T [facility] ALBUMIN S/P/B 3.4 3.4 - 5.0 G/DL 10/31/2019 10:14 AM [facility] AST 40(H) 15 - 37 U/L 10/31/2019 10:14 AM [facility] Comment:SLIGHT HEMOLYSIS, RE SULT MAY BE AFFECTED. ALT 24 16 - 60 U/L 10/31/2019 10:14 AM T [facility] ALKALINE PHOSPHATASE S/P/B 118 50 - 136 U/L 10/31/2019 10:14 AM [facility] ANION GAP 5.2 5 - 15 MMOL/L 10/31/2019 10:14 AM [facility] BUN CREATININE RATIO 21.7 6 - 26 10/31/2019 10:14 AM [facility] A/G RATIO 0.8(L) 1.0 - 2.0 RATIO 10/31/2019 10:14 AM [facility] EGFR NON-AFR. AMER. >90 >90 ML/MIN/1.7 3 M2 10/31/2019 10:14 AM [facility] EGFR AFR. AMER. >90 >90 ML/MIN/1.7 3 M2 10/31/2019 10:14 AM [facility] Comment: NOTE: eGFR is not calculated for patients <18 years of age. This is an estimated GFR (CKD EPI) and should not be used for calculating drug doses. 10/31/2019 9:20 AM CDT Antwan Pineda MD LABORATORY Final Result [facility] [address] [place] [address], * (ABNORMAL) CBC W/DIFF AUTOMATED (10/31/2019 9:20 AM CDT) Pathologist [facility] WBC 9.3 4.5 - 11.0 x10'3/uL 10/31/2019 9:49 AM CDT [facility] RBC 4.97 4.70 - 6.10 x10'6/uL 10/31/2019 9:49 AM CDT [facility] HGB 13.7(L) 14.0 - 18.0 G/DL 10/31/2019 9:49 AM CDT [facility] HCT 42.4(L) 43.0 - 54.0 % 10/31/2019 9:49 AM CDT [facility] MCV 85.3 80.0 - 94.0 FL 10/31/2019 9:49 AM CDT [facility] MCH 27.6 27.0 - 31.0 PG 10/31/2019 9:49 AM CDT [facility] MCHC 32.3 32.0 - 36.0 G/DL 10/31/2019 9:49 AM CDT [facility] RDW 15.9(H) 11.5 - 14.5 % 10/31/2019 9:49 AM CDT [facility] PLT 243 130 - 400 x10'3/uL 10/31/2019 9:49 AM CDT [facility] MPV 11.9 9.3 - 12.2 FL 10/31/2019 9:49 AM CDT [facility] DIFFERENTIAL TYPE AUTOMATED DIFFERENTIAL 10/31/2019 9:49 AM CDT [facility] NEUTROPHILS % 73.1 % 10/31/2019 9:49 AM CDT [facility] LYMPHOCYTES % 13.3 % 10/31/2019 9:49 AM CDT [facility] MONOCYTES % 9.4 % 10/31/2019 9:49 AM CDT [facility] EOSINOPHILS 3.1 % 10/31/2019 9:49 AM CDT [facility] BASOPHILS 0.5 % 10/31/2019 9:49 AM CDT [facility] IMMATURE GRANS % 0.6 % 10/31/19 9:49 AM T [facility] ABS. NEUTROPHILS TOTAL 6.75 1.80 - 7.70 x10'3/uL 10/31/2019 9:49 AM CDT [facility] ABS. LYMPHOCYTES 1.23 1.00 - 4.80 x10'3/uL 10/31/2019 9:49 AM T [facility] ABS. MONOCYTES 0.87(H) 0.30 - 0.82 x10'3/uL 10/31/2019 9:49 AM T [facility] ABS. EOSINOPHILS 0.29 0.04 - 0.54 x10'3/uL 10/31/2019 9:49 AM CDT [facility] ABS. BASOPHILS 0.05 0.01 - 0.08 x10'3/uL 10/31/2019 9:49 AM T [facility] ABS. IMMATURE GRANULOCYTES 0.06 0.00 - 0.49 x10'3/uL 10/31/2019 9:49 AM T [facility] 10/31/2019 9:20 AM CDT us Antwan Pineda MD LABORATORY Final Result [facility] [address] [facility] [place] [address], * Pathology (10/31/2019 12:00 AM CDT) COPATH REPORT ? [facility] ? [address] [facility] [address] ? [place] ??[id number] ? [id number] ? Department of Pathology ? Pathology Report ? SURGICAL FINAL REPORT Patient Name: MP KULKARNI ?? : 1965 (Age: 54) ? Location: [facility] Gender: M ?Collected Date: 10/31/2019 Med Rec #: [id number] ?Date Received: 10/31/2019 Date Reported: 11/01/2019 Provider: [...] in one cassette. :gabriella Billing Fee Code(s): 05713 [facility] Tissue specimen (specimen) (OTHER (type in comments)) 10/31/2019 11:21 AM CDT us Antwan Pineda MD PATHOLOGY/CYTOLOGY ORDERABLES Fi nal Result [facility] [address] [place] [address], documented in this encounter Visit Diagnoses Diagnosis [...] MD) documented in this encounter Care Teams Solar Energy System Installer Relationship Specialty Start Date End Date Irwin Stanley APNP [address] [place] [address] PCP - General NURSE PRACTITIONER 06/01/18 Dominick Mccloud MD [address] [address] [place] Telecom Engineer CARDIOVASCULAR DISEASE 03/28/19 Alexis Lopez MD [address] [facility] [address] [address] PULMONARY DISEASE 10/21/19 documented as of this encounter
--- OUTSIDE RECORDS SUMMARY | 2024-03-02 04:01 | XMS_ITS | Encounter Summary ---
Author Organization [facility] Address [address] [place] [address]. [place], [place] [address] [place] [address] Care Team Providers Care Legislative Aide Name Role Phone Clara Stanley Primary Care Provider [phone] Dominick Mccloud MD Unavailable [phone] Reason for Visit * Auth/Cert Specialty Diagnoses / Procedures Referred By Contac t Referred To Contact Diagnoses ABDOMINAL LEFT UPPER QUADRANT ABDOMINAL PAIN ANOREXIA CONSTIPATION WEIGHT LOSS Procedures EGD Referral ID Status Reason Start Date Expiration Date Visits Re quested Visits Authorized [id number] 1 1 Encounter Details Date Type Department Care Team (Late st Contact Info) Description 04/28/2019 7:30 AM REAL ESTATE APPRAISER SUPERVISOR - 04/28/2019 8:00 AM REAL ESTATE APPRAISER SUPERVISOR Surgery [facility] [place] [address] Agnes Goff MD [address] [address] EGD Surgery Details Date/Time Status Location OR Service Patient Class Case Class Case Type Trauma Case? 04/28/2019 7:30 AM Posted [facility] 3 Gastroenterology Short Stay/[facility] E - Elective No Panel 1 [...] Comments Blood Pressure 180/77 04/28/2019 7:56 AM REAL ESTATE APPRAISER SUPERVISOR Pulse 78 04/28/2019 7:56 AM REAL ESTATE APPRAISER SUPERVISOR Temperature 36.7 ??C (98.1 ??F) 04/28/2019 7:56 AM CS T Respiratory Rate 14 04/28/2019 7:56 AM REAL ESTATE APPRAISER SUPERVISOR Oxygen Saturation 97% 04/28/2019 7:56 AM REAL ESTATE APPRAISER SUPERVISOR Inhaled Oxygen Concentration - - Weight 158.8 kg (350 lb) 04/21/2019 3:25 PM REAL ESTATE APPRAISER SUPERVISOR Height 190.5 cm (6' 3 ) 04/21/2019 3:25 PM REAL ESTATE APPRAISER SUPERVISOR Body Mass Index 43.75 04/21/2019 3:25 PM REAL ESTATE APPRAISER SUPERVISOR documented in this encounter Discharge Instructions * Discharge Instructions* Agnes Goff MD - 04/28/2019 8:01 AM REAL ESTATE APPRAISER SUPERVISOR Normal EGD ESTATE APPRAISER SUPERVISOR * Attachments The following attachments cannot be sent through Care Everywhere. * Upper GI Endoscopy Discharge Instructions (Surinamese) documented in this encounter Medications at Time [...] file Gets together: Not on file Attends restoration service: Not on file Active member of [...] & Plan: EGD AGNES GOFF MD 04/28/2019 ESTATE APPRAISER SUPERVISOR documented in this encounter OR Notes * Op Note - Agnes Goff MD - 04/28/2019 7:50 AM CST AGNES GOFF MD, FACG, FACP UPPER ENDOSCOPY INDICATION: LUQ/epigastric pain, anorexia, weight loss. POST-OP: Normal. SEDATION: Per anesthesia With the patient in the left lateral decubitus position, the Olympus GIF [id number] upper endoscope wasused to easily intubate the [...] office in one month. Agnes Goff M.D. ESTATE APPRAISER SUPERVISOR documented in this encounter Plan of Treatment Upcoming Encounters Date Type Department Care Team (Late st Contact Info) Description 03/28/2024 7:30 AM REAL ESTATE APPRAISER SUPERVISOR Hospital Encounter [facility] [place] [address] Antwan Stone DPM [address], [place] [address] 03/28/2024 7:30 AM REAL ESTATE APPRAISER SUPERVISOR Anesthesia Event [place] [place] [place] [address] Shanelle Avila, PROJECTOR OPERATOR [address] [place] [address] 03/28/2024 7:30 AM REAL ESTATE APPRAISER SUPERVISOR - 03/28/2024 8:48 AM REAL ESTATE APPRAISER SUPERVISOR Surgery [facility] [place] [address] Antwan Stone, DIEGO [address], [place] [address] REMOVAL OF HARDWARE LEFT FOOT 04/05/2024 8:30 AM REAL ESTATE APPRAISER SUPERVISOR Office Visit Darren Hernandez'Marbella fleming THREE [facility], [facility] [address] [place] [address] Dominick Mccloud MD Three [facility]. [facility] [address] [place] [address] Scheduled Procedures Name Priority Associated Diagnoses Date/Ti me REMOVAL PLATE SCREW OR PIN SCHED BY FAX 02/08/24 JUANITOS PHONE ASSESS 03/28/2024 7:30 AM REAL ESTATE APPRAISER SUPERVISOR documented as of this encounter Procedures Procedure Name Priority Date/Time Associated Diagnosis Comments EGD 04/28/2019 7:32 AM REAL ESTATE APPRAISER SUPERVISOR ABDOMINAL LEFT UPPER QUADRANT ABDOMINAL PAIN ANOREXIA CONSTIPATION WEIGHT LOSS Case Notes SCHEDULED BY FAX 04/15/19 LB EGD Routine 04/28/2019 6:49 AM REAL ESTATE APPRAISER SUPERVISOR documented in this encounter Visit Diagnoses Not [...] Recently Administered Medications Times are shown in REAL ESTATE APPRAISER SUPERVISOR. Continuous Medication Order 04/26/2019 04/27/2019 04/28/2019 lactated ringers infusion at 10 mL/hr, Intravenous, Continuous, Starting on Priscila 04/28/19 at 0730, Until Priscila 04/28/19 at 1047, Infuse at TKO rate, Pre-Op 0730 (Canceled Entry - Provider: Automatic Discharge Provider - Comment: Automatically canceled at discontinue of medication order) documented in this encounter Care Teams Legislative Aide Relationship Specialty Start Date End Date Clara Stanley APNP [address] [place] [address] PCP - General NURSE PRACTITIONER 06/01/18 Dominick Mccloud MD [place] [address] [place] [address] [place] Boom Pump Operator CARDIOVASCULAR DISEASE 03/28/19 documented as of this encounter
--- OUTSIDE RECORDS SUMMARY | 2024-03-02 04:01 | XMS_ITS | Encounter Summary ---
Author Organization [facility] Address [address] [place] [address]. [place], [place] [address] [place] [address] Care Team Providers Care Lens Finisher Name Role Phone Clara Stanley Primary Care Provider [phone] Dominick Mccloud MD Unavailable [phone] Reason for Visit * Reason Comments [...] (Late Contact Info) Description 03/28/2024 7:30 AM [facility] Hospital Encounter [facility] [place] [address] Antwan Stone DPM [address], [address] [place], [place] [id number] 03/28/2024 7:30 AM ZIGZAG APPLIQUER Anesthesia Event [place] [address] Shanelle Avila, RUBBLE PLACER [address] [place] [address] 03/28/2024 7:30 AM ZIGZAG APPLIQUER - 03/28/2024 8:48 AM ZIGZAG APPLIQUER Surgery [place] [address] Antwan Stone, DPM [address] [place] [address] REMOVAL OF HARDWARE LEFT FOOT 04/05/2024 8:30 AM ZIGZAG APPLIQUER Office Visit Darren Chaudhari-O'F allon THREE [facility], [facility] [address] [place] [address] Dominick Mccloud MD Three [facility]. [facility] [address] [place] [address] Scheduled Procedures Name Priority Associated Diagnoses Date/Ti me REMOVAL PLATE SCREW OR PIN SCHED BY FAX 02/08/24 KAYLIE PHONE ASSESS 03/28/2024 7:30 AM ZIGZAG APPLIQUER documented as of this encounter Procedures Procedure [...] on filedocumented in this encounter Care Teams Lens Finisher Relationship Specialty Start Date End Date Clara Stanley APNP [address] [place] [address] PCP - General NURSE PRACTITIONER 06/01/18 Dominick Mccloud MD [facility] [address] [place] [address] Beatrice Hand Former CARDIOVASCULAR DISEASE 03/28/19 documented as of this encounter
--- OUTSIDE RECORDS SUMMARY | 2024-03-02 04:01 | XMS_ITS | Encounter Summary ---
Author Organization [facility] Address [address] [place] [address]. [place], [place] [address] [place] [address] Care Team Providers Care Hematologist Name Role Phone Clara Stanley Primary Care Provider [phone] Dominick Mccloud MD Unavailable [phone] Reason for Visit * Reason Comments Hypertension needs to get establi shed with sales program coordinator Encounter Details Date Type Department Care Team (Late st Contact Info) Description 04/27/2019 11:15 AM FURNACE HELPER Office Visit [facility], [facility] [address] [place], [place] [id number] Dominick Mccloud MD [facility]. [facility] [address] [place], [place] [id number] Hypertension (needs to get established with sales program coordinator) Social History Tobacco Use Types Packs/Day Years [...] Comments Blood Pressure 140/82 04/27/2019 11:13 AM FURNACE HELPER Pulse 75 04/27/2019 11:13 AM FURNACE HELPER Temperature - - Respiratory Rate - - Oxygen Saturation 99% 04/27/2019 11:13 AM FURNACE HELPER Inhaled Oxygen Concentration - - Weight 160.6 kg (354 lb) 04/27/2019 11:13 AM FURNACE HELPER Height 190.5 cm (6' 3 ) 04/27/2019 11:13 AM FURNACE HELPER Body Mass Index 44.25 04/27/2019 11:13 AM FURNACE HELPER documented in this encounter Patient Instructions * Patient Instructions* Cris Young - 04/27/2019 11:15 AM FURNACE HELPER Images from the original note were not [...] ordered. Donot take other prescription drugs or gisw-bsw-nfseyqo (OTC) drugs without talking to your doctor [...] or stroke. Where can I learn more? [place] [employer] http://www.heart.org/HEARTORG/Conditions/HighBloodPressure/AboutHighBloodPressur e/Jneal-Jttq-Rdfgx-Pressure_UC_002050_Article.jsp#.I5iC1NosO7i NHS Choices http://www.nhs.uk/conditions/blood-pressure-(high)/pages/introduction.aspx [employer] [employer] https://familydoctor.org/condition/wwzb-gvyxm-cpdkgrdd/ Up to Date https://www.[employer]val[employer]/contents/ride-okccx-qzsgzgcx-go-zjhrtv-smkgsd-the-basic s?source=see_link Last Reviewed Date 2017-04-23 Consumer Information [...] right for you. Copyright Copyright ?? 2019 [employer] and its affiliates and/or licensors. All rights reserved. ACE HELPER documented in this encounter Progress Notes * Dominick Mccloud MD - 04/27/2019 11:15 AM CST Reason for Visit: Hypertension (needs to get established with sales program coordinator) History of Present Illness: Mr. 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 He has no history of tobacco use, [...] Referring Provider: Clara Stanley PCP: ZEB Nunn ACE HELPER documented in this encounter Plan of Treatment Upcoming Encounters Date Type Department Care Team (Late st Contact Info) Description 03/28/2024 7:30 AM FURNACE HELPER Hospital Encounter [facility] [place] [address] Antwan Stone, DIEGO [address], [place] [address] 03/28/2024 7:30 AM FURNACE HELPER Anesthesia [place] [address] Shanelle Avila, REHABILITATION SERVICES AIDE [address] [place] [address] 03/28/2024 7:30 AM FURNACE HELPER - 03/28/2024 8:48 AM FURNACE HELPER Surgery [place] [address] Antwan Stone, DIEGO [address], [place] [address] REMOVAL OF HARDWARE LEFT FOOT 04/05/2024 8:30 AM FURNACE HELPER Office Visit Darren Chaudhari-Omar'F allon THREE [facility], [facility] [address] [place] [address] Dominick Mccloud MD Three [facility]. [facility] [address] [place] [address] Scheduled Procedures Name Priority Associated Diagnoses Date/Ti me REMOVAL PLATE SCREW OR PIN SCHED BY FAX 02/08/24 [facility] PHONE ASSESS 03/28/2024 7:30 AM FURNACE HELPER documented as of this encounter Results * (ABNORMAL) LIPID PANEL (04/27/2019 12:50 PM FURNACE HELPER) CHOLESTEROL 167 <200 MG/DL 04/27/2019 1:32 PM FURNACE HELPER [facility] TRIGLYCERIDES 181(H) <150 MG/DL 04/27/2019 1:32 PM [facility] HDL 36(L) >40.0 MG/DL 04/27/2019 1:32 PM [facility] LDL (CALCULATED) 95 <100 MG/DL 04/27/2019 1:32 PM [facility] NON HDL CHOLESTEROL 131(H) <130 MG/DL 04/27/2019 1:32 PM [facility] CHOL/HDL RATIO 4.6(H) 0.0 - 4.5 04/27/2019 1:32 PM [facility] VLDL CALCULATION 36 5 - 55 MG/DL 04/27/2019 1:32 PM [facility] LIPID INTERPRETATION 04/27/2019 1:32 PM [facility] Comment: [facility] REPORT RECOMMENDATIONS: ?ADULT ?CHILD ??LOW RISK: ?CHOLESTEROL ? <200 ? <170 ?TRIGLYCERIDE ?<150 ?--- ?HDL ? >=60 ?--- ?LDL ? <100 ? <110 ??BORDERLINE: ?CHOLESTEROL ? 200-239 ?? 170-199 ?TRIGLYCERIDE ?150-199 ? --- ?HDL ?40-59 ?--- ?LDL ? 100-159 ?? 110-129 ??HIGH RISK: ?CHOLESTEROL ? >=240 ?>=200 ?TRIGLYCERIDE ?>=200 ? --- ?HDL ?<40 ?--- ?LDL ? >=160 ?>=130 04/27/2019 12:5 0 PM FURNACE HELPER Dominick Mccloud MD LABORATORY Final Result Performing Organization Address City/State/[facility] Co de Phone Number [facility] [address] [place] [address], documented in this encounter Visit Diagnoses Diagnosis Mixed hyperlipidemia- Primary Hypertension, benign Essential hypertension, benign Painful orthopaedic hardware (CMS/HCC)- Primary documented in this encounter Care Teams Hematologist Relationship Specialty Start Date End Date Clara Stanley APNP [address] [place] [address] PCP - General NURSE PRACTITIONER 06/01/18 Dominick Mccloud MD Three [facility]. [facility] [address] [place] [address] [place] Cattle Brander CARDIOVASCULAR DISEASE 03/28/19 documented as of this encounter
--- OUTSIDE RECORDS SUMMARY | 2024-03-02 04:01 | XMS_ITS | Encounter Summary ---
Author Organization [facility] Address [address] [place] [address]. [place], [place] [address] [place] [address] Care Team Providers Care Supervisor Frame Sample And Pattern Name Role Phone Clara Stanley Primary Care Provider [phone] Dominick Mccloud MD Unavailable [phone] Encounter Details Date Type Department Care [...] st Contact Info) Description 03/28/2024 7:30 AM BANKING SERVICES OFFICER Hospital Encounter [facility] [place] [address] Antwan Stone DPM [address], [place] [address] 03/28/2024 7:30 AM BANKING SERVICES OFFICER Anesthesia Event [place] [address] Shanelle Avila, SUPERVISOR FUSING ROOM 1 [place] [address] 03/28/2024 7:30 AM BANKING SERVICES OFFICER - 03/28/2024 8:48 AM BANKING SERVICES OFFICER Surgery [place] [address] Antwan Stone, DPÁngel [address], [place] [address] REMOVAL OF HARDWARE LEFT FOOT 04/05/2024 8:30 AM BANKING SERVICES OFFICER Office Visit [facility]'F allon THREE [facility], [facility] [address] [place] [address] Dominick Mccloud MD Three [facility]. [facility] [address] [place], [place] [address] Scheduled Procedures Name Priority Associated Diagnoses Date/Ti me REMOVAL PLATE SCREW OR PIN SCHED BY FAX 02/08/24 [facility] PHONE ASSESS 03/28/2024 7:30 AM BANKING SERVICES OFFICER documented as of this encounter Visit Diagnoses Not on filedocumented in this encounter Care Teams Supervisor Frame Sample And Pattern Relationship Specialty Start Date End Date Clara Stanley APNP [address] [place] [address] PCP - General NURSE PRACTITIONER 06/01/18 Dominick Mccloud MD Three [facility]. [facility] [address] [place], [place] [address] [place] Assistant Service Manager CARDIOVASCULAR DISEASE 03/28/19 documented as of this encounter
--- OUTSIDE RECORDS SUMMARY | 2024-03-02 04:01 | XMS_ITS | Encounter Summary ---
Author Organization [facility] Address [address] [place] [address]. [place], [place] [address] [place] [address] Care Team Providers Care Property Site Manager Name Role Phone Clara Stanley Primary Care Provider [phone] Dominick Mccloud MD Unavailable [phone] Encounter Details Date Type Department Care [...] st Contact Info) Description 03/28/2024 7:30 AM FELT HANGER Hospital Encounter [facility] [place] [address] Antwan Stone DPM [address], [place] [address] 03/28/2024 7:30 AM FELT HANGER Anesthesia [place] [address] Shanelle Avila, EPIC RADIANT ANALYST 1 [place] [address] 03/28/2024 7:30 AM FELT HANGER - 03/28/2024 8:48 AM FELT HANGER Surgery [place] [address] Antwan Stone, DPÁngel [address], [place] [address] REMOVAL OF HARDWARE LEFT FOOT 04/05/2024 8:30 AM FELT HANGER Office Visit [facility] Cardiovascular-O'F allon THREE [facility], [facility] [address] [place] [address] Dominick Mccloud MD Three [facility]. [facility] [address] [place], [place] [address] Scheduled Procedures Name Priority Associated Diagnoses Date/Ti me REMOVAL PLATE SCREW OR PIN SCHED BY FAX 02/08/24 [facility] PHONE ASSESS 03/28/2024 7:30 AM FELT HANGER documented as of this encounter Visit Diagnoses Not on filedocumented in this encounter Care Teams Property Site Manager Relationship Specialty Start Date End Date Clara Stanley APNP [address] [place] [address] PCP - General NURSE PRACTITIONER 06/01/18 Dominick Mccloud MD Three [facility]. [facility] [address] [place], [place] [address] [place] Broadcast Meteorologist CARDIOVASCULAR DISEASE 03/28/19 documented as of this encounter
--- OUTSIDE RECORDS SUMMARY | 2024-03-02 04:01 | XMS_ITS | Encounter Summary ---
Author Organization [facility] Address [address] [place] [address]. [place] [address] [place] [address] Care Team Providers Care Neurosurgical Nurse Name Role Phone Clara Stanley Primary Care Provider [phone] Dominick Mccloud MD Unavailable [phone] Reason for Visit * Reason Comments [...] AM [facility] Hospital Encounter [facility] [place] [address] Antwan Stone DPM [address], [place] [address] 03/28/2024 7:30 AM FINANCIAL INSTITUTION VICE PRESIDENT Anesthesia Event [place] [address] Shanelle Avila, PIANO BUILDER [address] [place] [address] 03/28/2024 7:30 AM FINANCIAL INSTITUTION VICE PRESIDENT - 03/28/2024 8:48 AM FINANCIAL INSTITUTION VICE PRESIDENT Surgery [place] [address] Antwan Stone, DPM [address], [place] [address] REMOVAL OF HARDWARE LEFT FOOT 04/05/2024 8:30 AM FINANCIAL INSTITUTION VICE PRESIDENT Office Visit Darren Chaudhari-O'F allon THREE [facility], [facility] [address] [place] [address] Dominick Mccloud MD Three [facility]. [facility] [address] [place] [address] Scheduled Procedures Name Priority Associated Diagnoses Date/Ti me REMOVAL PLATE SCREW OR PIN SCHED BY FAX 02/08/24 [facility] PHONE ASSESS 03/28/2024 7:30 AM FINANCIAL INSTITUTION VICE PRESIDENT documented as of this encounter Procedures Procedure Name Priority Date/Time Associated Diagnosis Comments OUTSIDE LAB (SCAN ORDER) Routine 08/22/2019 documented in this encounter Results * OUTSIDE LAB (08/22/2019) 08/22/2019 us Documents Scanned SCANNING Edited Result - Final [facility] ONBASE documented in this encounter Visit Diagnoses Not on filedocumented in this encounter Care Teams Neurosurgical Nurse Relationship Specialty Start Date End Date Clara Stanley APNP [address] [place] [address] PCP - General NURSE PRACTITIONER 06/01/18 Dominick Mccloud MD [facility] [address] [place] [address] [place] Brick Maker CARDIOVASCULAR DISEASE 03/28/19 documented as of this encounter
--- OUTSIDE RECORDS SUMMARY | 2024-03-02 04:01 | XMS_ITS | Encounter Summary ---
Author Organization [facility] Address [address] [place] [address]. [place] [address] [place] [address] Care Team Providers Care Caretaker Resort Name Role Phone Clara Stanley Primary Care Provider [phone] Dominick Mccloud MD Unavailable [phone] Reason for Visit * Reason Comments Image [...] [facility] Hospital Encounter [facility] [place] [address] Antwan Stone DPM [address], [place] [address] 03/28/2024 7:30 AM DIRECTOR OF DISTRICT OFFICE Anesthesia Event [place] [address] Shanelle Avila, FUR MIXER OPERATOR 1 [place] [address] 03/28/2024 7:30 AM DIRECTOR OF DISTRICT OFFICE - 03/28/2024 8:48 AM DIRECTOR OF DISTRICT OFFICE Surgery [place] [address] Antwan Stone, DPM [address], [place] [address] REMOVAL OF HARDWARE LEFT FOOT 04/05/2024 8:30 AM DIRECTOR OF DISTRICT OFFICE Office Visit Darren Chaudhari-O'F allon THREE [facility], [facility] [address] [place] [address] Dominick Mccloud MD Three [facility]. [facility] [address] [place] [address] Scheduled Procedures Name Priority Associated Diagnoses Date/Ti me REMOVAL PLATE SCREW OR PIN SCHED BY FAX 02/08/24 [facility] PHONE ASSESS 03/28/2024 7:30 AM DIRECTOR OF DISTRICT OFFICE documented as of this encounter Procedures Procedure Name Priority Date/Time Associated Diagnosis Comments IMAGE GENERIC Routine 06/14/2019 documented in this encounter Results * IMAGE STUDY (06/14/2019) Anatomical Region Laterality Modality Other us Documents Scanned SCANNING Edited Result - Final documented in this encounter Visit Diagnoses Not on filedocumented in this encounter Care Teams Caretaker Resort Relationship Specialty Start Date End Date Clara Stanley APNP [address] [place] [address] PCP - General NURSE PRACTITIONER 06/01/18 Dominick Mccloud MD [facility]. [facility] [address] [place] [address] [place] Policy Checker CARDIOVASCULAR DISEASE 03/28/19 documented as of this encounter
--- OUTSIDE RECORDS SUMMARY | 2024-03-02 04:01 | XMS_ITS | Encounter Summary ---
Author Organization [facility] Address [address] [place] [address]. [place], [place] [address] [place] [address] Care Team Providers Care Math Instructor Name Role Phone Clara Stanley Primary Care Provider [phone] Dominick Mccloud MD Unavailable [phone] Reason for Visit * Reason Onset Date Comments Results 04/14/2019 Encounter Details Date Type Department Care Team (Late st Contact Info) Description 04/14/2019 Telephone [facility] Medical Group Family & Internal Medicine [facility] [address] [place] [address] Clara Stanley APNP [address] [place] [address] Results Social History Tobacco Use [...] to f/u with neuro @ [facility] 04/25/19. BOILER documented in this encounter Plan of Treatment Upcoming Encounters Date Type Department Care Team (Late st Contact Info) Description 03/28/2024 7:30 AM OIL BOILER Hospital Encounter [facility] [place] [address] Antwan Stone DPM [address], [place] [address] 03/28/2024 7:30 AM OIL BOILER Anesthesia Event [facility] OR ONE [facility] [place] [address] Shanelle Avila, REFUND CLERK 1 [place] [address] 03/28/2024 7:30 AM OIL BOILER - 03/28/2024 8:48 AM OIL BOILER Surgery [place] [address] Antwan Stone DPM [address], [place] [address] REMOVAL OF HARDWARE LEFT FOOT 04/05/2024 8:30 AM OIL BOILER Office Visit Darren Chaudhari-O'F allon THREE [facility], [facility] [address] [place] [address] Dominick Mccloud MD Three [facility]. [facility] [address] [place] [address] Scheduled Procedures Name Priority Associated Diagnoses Date/Ti me REMOVAL PLATE SCREW OR PIN SCHED BY FAX 02/08/24 [facility] PHONE ASSESS 03/28/2024 7:30 AM OIL BOILER documented as of this encounter Visit Diagnoses Not on filedocumented in this encounter Care Teams Math Instructor Relationship Specialty Start Date End Date Clara Stanley APNP [address] [place] [address] PCP - General NURSE PRACTITIONER 06/01/18 Dominick Mccloud MD [facility] [address] [place] [address] [place] Triage Specialist CARDIOVASCULAR DISEASE 03/28/19 documented as of this encounter
--- OUTSIDE RECORDS SUMMARY | 2024-03-02 04:02 | XMS_ITS | Encounter Summary ---
Author Organization [facility] Address [address] [place] [address]. [place], [place] [address] [place] [address] Care Team Providers Care Radiology Special Procedure Tech Name Role Phone Clara Stanley Primary Care Provider [phone] Dominick Mccloud MD Unavailable [phone] Reason for Referral * Imaging (Urgent) - Closed Specialty Diagnoses / Procedures Referred By Contac t Referred To Contact RADIOLOGY Diagnoses Left upper quadrant pain Procedures US ABD COMPLETE Yakov Bello MD [address] [place] [address] Phone: tel: fax: Referral ID Status Reason Start Date Expiration Date Visits Re quested Visits Authorized [id number] Closed 04/07/2019 05/08/2020 1 1 CTOR OF GUIDANCE Reason for Visit * Imaging (Urgent) - Closed Specialty Diagnoses / Procedures Referred By Contac t Referred To Contact RADIOLOGY Diagnoses Left upper quadrant pain Procedures US ABD COMPLETE Yakov Bello MD [address] [place] [address] Phone: tel: fax: Referral ID Status Reason Start Date Expiration Date Visits Re quested Visits Authorized [id number] Closed 04/07/2019 05/08/2020 1 1 Encounter Details Date Type Department Care Team (Latest Contact Info) Description 04/09/2019 1:35 PM DIRECTOR OF GUIDANCE - 04/09/2019 3:41 PM DIRECTOR OF GUIDANCE Hospital Encounter [facility] [address] Yakov Bello MD [address] [place] [address] Discharge Disposition: Home or Self Care (Routine [...] 3:41 PM CST Abdominal ultrasound is normal. CTOR OF GUIDANCE documented in this encounter Plan of Treatment Upcoming Encounters Date Type Department Care Team (Late st Contact Info) Description 03/28/2024 7:30 AM DIRECTOR OF GUIDANCE Hospital Encounter [facility] [place] [address] Antwan Stone DPM [address], [place] [address] 03/28/2024 7:30 AM DIRECTOR OF GUIDANCE Anesthesia [place] [address] Shanelle Avila, COTTON PICKING 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 [address] [place] [address] 03/28/2024 7:30 AM DIRECTOR OF GUIDANCE - 03/28/2024 8:48 AM DIRECTOR OF GUIDANCE Surgery [facility] [place] [address] Antwan Stone DPM [address], [place] [address] REMOVAL OF HARDWARE LEFT FOOT 04/05/2024 8:30 AM DIRECTOR OF GUIDANCE Office Visit [facility] THREE [facility], [facility] [address] [place] [address] Dominick Mccloud MD Three [facility]. [facility] [address] [place] [address] Scheduled Procedures Name Priority Associated Diagnoses Date/Ti me REMOVAL PLATE SCREW OR PIN SCHED BY FAX 02/08/24 [facility] PHONE ASSESS 03/28/2024 7:30 AM DIRECTOR OF GUIDANCE documented as of this encounter Procedures Procedure Name Priority Date/Time Associated Diagnosis Comments US ABD COMPLETE ANAYELI 04/09/2019 2:40 PM DIRECTOR OF GUIDANCE Left upper quadrant pain documented in this encounter Results * US ABD COMPLETE (04/09/2019 2:40 PM DIRECTOR OF GUIDANCE) Anatomical Region Laterality Modality Abdomen Ultrasound 04/09/2019 5:00 PM DIRECTOR OF GUIDANCE Impressions 04/09/2019 5:03 PM DIRECTOR OF GUIDANCE IMPRESSION: No acute abnormality identified. Interpreted By: Gordon Tolentino MD, 04/09/2019 5:00 PM Narrative 04/09/2019 5:03 PM DIRECTOR OF GUIDANCE EXAMINATION: US ABD COMPLETE HISTORY: Upper quadrant [...] Primary documented in this encounter Care Teams Radiology Special Procedure Tech Relationship Specialty Start Date End Date Clara Stanley APNP [address] [place] [address] PCP - General NURSE PRACTITIONER 06/01/18 Dominick Mccloud MD [facility] [address] [place] [address] Bancroft Stations Superintendent CARDIOVASCULAR DISEASE 03/28/19 documented as of this encounter
--- OUTSIDE RECORDS SUMMARY | 2024-03-02 04:02 | XMS_ITS | Encounter Summary ---
Author Organization [facility] Address [address] [place] [address]. [place], [place] [address] [place] [address] Care Team Providers Care Client Engagement Manager Name Role Phone Clara Stanley Primary Care Provider [phone] Dominick Mccloud MD Unavailable [phone] Reason for Visit * Reason Onset Date Comments Appointment Request 04/07/2019 Encounter Details Date Type Department Care Team (Late st Contact Info) Description 04/07/2019 Telephone [facility] Medical Group Family & Internal Medicine [facility] [address] [place] [address] Clara Stanley APNP [address] [place] [address] Appointment Request Social History Tobacco [...] an appointment with Dr. Bello this afternoon. POUR SUPERVISOR * Anika Russell - 04/07/2019 10:09 AM [...] having real difficulties managing pain and sleeping. POUR SUPERVISOR documented in this encounter Plan of Treatment Upcoming Encounters Date Type Department Care Team (Late st Contact Info) Description 03/28/2024 7:30 AM WET POUR SUPERVISOR Hospital Encounter [facility] [place] [address] Antwan Stone DPM [address] [place] [address] 03/28/2024 7:30 AM WET POUR SUPERVISOR Anesthesia Event [place] [address] Shanelle Avila, BLOCK SPLITTER OPERATOR [address] [place] [address] 03/28/2024 7:30 AM WET POUR SUPERVISOR - 03/28/2024 8:48 AM WET POUR SUPERVISOR Surgery [facility] [place] [address] Antwan Stone DPM [address] [place] [address] REMOVAL OF HARDWARE LEFT FOOT 04/05/2024 8:30 AM WET POUR SUPERVISOR Office Visit [facility] THREE [facility], [facility] [address] [place] [address] [facility]. [facility] [address] [place], [place] [address] Scheduled Procedures Name Priority Associated Diagnoses Date/Ti me REMOVAL PLATE SCREW OR PIN SCHED BY FAX 02/08/24 [facility] PHONE ASSESS 03/28/2024 7:30 AM WET POUR SUPERVISOR documented as of this encounter Visit Diagnoses Not on filedocumented in this encounter Care Teams Client Engagement Manager Relationship Specialty Start Date End Date Clara Stanley APNP [address] [place] [address] PCP - General NURSE PRACTITIONER 06/01/[address] [facility]. [facility] [address] [place], [place] [address] Fely Recreational Specialist CARDIOVASCULAR DISEASE 03/28/19 documented as of this encounter
--- OUTSIDE RECORDS SUMMARY | 2024-03-02 04:02 | XMS_ITS | Encounter Summary ---
Author Organization [facility] Address [address] [place] [address]. [place], [place] [address] [place] [address] Care Team Providers Care Blade Grader Operator Name Role Phone Clara Stanley Primary Care Provider [phone] Reason for Visit * Reason Onset Date Comments Results 03/23/2019 Encounter Details Date Type Department Care Team (Late st Contact Info) Description 03/23/2019 Telephone [facility] Medical Group Family & Internal Medicine [place] [address] [place] [address] Clara Stanley APNP [address] [place] [address] Results Social History Tobacco Use [...] - 03/23/2019 9:30 AM CST informed tn MERCE MERCHANDISING MANAGER * Estrellita Chi MA - 03/23/2019 9:30 AM CST ----- Message from ZEB Nunn sent at 03/22/2019 9:28 PM ECOMMERCE MERCHANDISING MANAGER ----- Let patient know his cervical spine x-ray was unremarkable. MERCE MERCHANDISING MANAGER documented in this encounter Plan of Treatment Upcoming Encounters Date Type Department Care Team (Late st Contact Info) Description 03/28/2024 7:30 AM ECOMMERCE MERCHANDISING MANAGER Hospital Encounter [facility] [place] [address] Antwan Stone, DIEGO [address], [place] [address] 03/28/2024 7:30 AM ECOMMERCE MERCHANDISING MANAGER Anesthesia [place] [address] Shanelle Avila, DIGGING 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 [address] [place] [address] 03/28/2024 7:30 AM ECOMMERCE MERCHANDISING MANAGER - 03/28/2024 8:48 AM ECOMMERCE MERCHANDISING MANAGER Surgery [place] [address] Antwan Stone DPM [address], [place] [address] REMOVAL OF HARDWARE LEFT FOOT 04/05/2024 8:30 AM ECOMMERCE MERCHANDISING MANAGER Office Visit [facility] THREE [facility] [place], [facility] [address] [place] [address] Dominick Mccloud MD Three [facility]. [facility] [address] [place] [address] Scheduled Procedures Name Priority Associated Diagnoses Date/Ti me REMOVAL PLATE SCREW OR PIN SCHED BY FAX 02/08/24 [facility] PHONE ASSESS 03/28/2024 7:30 AM ECOMMERCE MERCHANDISING MANAGER documented as of this encounter Visit Diagnoses Not on filedocumented in this encounter Care Teams Blade Grader Operator Relationship Specialty Start Date End Date Clara Stanley APNP [address] [place] [address] PCP - General NURSE PRACTITIONER 06/01/18 documented as of this encounter
--- OUTSIDE RECORDS SUMMARY | 2024-03-02 04:02 | XMS_ITS | Encounter Summary ---
Author Organization [facility] Address [address] [place] [address]. [place], [place] [address] [place] [address] Care Team Providers Care Electric Razor Assembler Name Role Phone Clara Stanley Primary Care Provider [phone] Dominick Mccloud MD Unavailable [phone] Reason for Referral * Imaging (Routine) - Closed Specialty Diagnoses / Procedures Referred By Erik galdamez Referred To Contact RADIOLOGY Diagnoses Right lower lobe pulmonary nodule Procedures CT CHEST WO CON Clara Stanley APNP [address] [place] [address] Phone: tel: fax: Referral ID Status Reason Start Date Expiration Date Visits Re quested Visits Authorized [id number] Closed 04/18/2019 07/17/2019 1 1 AY CONTROLLER * Consultation (Urgent) - Closed Specialty Diagnoses / Procedures Referred By Erik galdamez Referred To Contact PULMONARY DISEASE / SLEEP & RESPIRATORY CARE Diagnoses Lung nodule Clara Stanley APNP [address] [place] [address] Phone: tel: fax: Cuauhtemoc Mendieta MD [address] [place] [address] Phone: tel: fax: Referral ID Status Reason Start Date Expiration Date V isits Requested Visits Authorized [id number] Closed Specialty Services 04/05/2019 05/05/2020 1 1 AY CONTROLLER Reason for Visit * Reason Onset Date Comments Results 04/05/2019 Encounter Details Date Type Department Care Team (Late st Contact Info) Description 04/05/2019 Telephone [facility] Medical Group Family & Internal Medicine [facility] [address] [place] [address] Clara Stanley APNP [address] [place] [address] Results Social History Tobacco Use Types Packs/Day [...] on: 04/07/2019 10:15 AM Modules accepted: Orders AY CONTROLLER * Zoila Kenyon MA - 04/05/2019 3:46 PM CSTAddended by: ZOILA KENYON on: 04/05/2019 03:46 PM Modules accepted: Orders AY CONTROLLER * Cheri Steiner RN - 04/05/2019 2:50 PM CST Ordered. AY CONTROLLER * ZEB Nunn - 04/05/2019 12:56 PM [...] CT results with his /patient yesterday afternoon. AY CONTROLLER * Zoila Kenyon MA - 04/05/2019 12:33 PM CST Spoke with pt and informed of the following. Pt states he is doing better today b/c he had a BM. Ptthinks that the pain meds were affecting his stomach so he is going to lay off them for a little bit AY CONTROLLER * Zoila Kenyon MA - 04/05/2019 11:31 AM CST ----- Message from ZEB Nunn sent at 04/05/2019 11:30 AM AIRWAY CONTROLLER ----- Let pt know other than some degenerative changes, thoracic spine was unremarkable. AY CONTROLLER documented in this encounter Plan of Treatment Upcoming Encounters Date Type Department Care Team (Late st Contact Info) Description 03/28/2024 7:30 AM AIRWAY CONTROLLER Hospital Encounter [facility] [place] [address] Antwan Stone DPM [address], [place] [address] 03/28/2024 7:30 AM AIRWAY CONTROLLER Anesthesia Event [place] [address] Shanelle Avila, MEDICAL BILLER [address] [place] [address] 03/28/2024 7:30 AM AIRWAY CONTROLLER - 03/28/2024 8:48 AM AIRWAY CONTROLLER Surgery [facility] [place] [address] Antwan Stone, DPÁngel [address], [place] [address] REMOVAL OF HARDWARE LEFT FOOT 04/05/2024 8:30 AM AIRWAY CONTROLLER Office Visit [facility]-Omar'Marbella allon THREE [facility], [facility] [address] [place], [place] [address] Dominick Mccloud MD Three [facility]. [facility] [address] [place], [place] [address] Scheduled Procedures Name Priority Associated Diagnoses Date/Ti me REMOVAL PLATE SCREW OR PIN SCHED BY FAX 02/08/24 KAYLIE PHONE ASSESS 03/28/2024 7:30 AM AIRWAY CONTROLLER Scheduled Referrals Name Type Priority Associated Diagnoses Orde r Schedule Ambulatory referral to Pulmonology (OTHER) Referral Routine Lung nodule Ordered: 04/05/2019 documented as of this encounter Results * CT CHEST WO CON (04/22/2019 9:14 AM AIRWAY CONTROLLER) Anatomical Region Laterality Modality Chest Computed Tomogra phy 04/23/2019 9:42 PM AIRWAY CONTROLLER Impressions 04/23/2019 9:48 PM AIRWAY CONTROLLER IMPRESSION: 1. ??Indeterminate 1.3 cm lung nodule, right lower lobe, unchanged. RECOMMENDATION: Nodule >8 mm: LOW AND HIGH RISK PATIENT - ??Low dose CT chest without contrast at 3, 12, and 24 months; PET-CT; or tissue sampling. 2. ??Gynecomastia. 3. ??Sub-6 mm lung nodules, right middle lobe, unchanged. Interpreted By: Xander Emmanuel MD, 04/23/2019 9:42 PM Narrative 04/23/2019 9:48 PM AIRWAY CONTROLLER EXAMINATION: CT Chest without contrast DATE: 04/22/2019 [...] Primary documented in this encounter Care Teams Electric Razor Assembler Relationship Specialty Start Date End Date Clara Stanley APNP [address] [place] [address] PCP - General NURSE PRACTITIONER 06/01/18 Dominick Mccloud MD [facility] [address] [place] [address] Ola Wheel Presser CARDIOVASCULAR DISEASE 03/28/19 documented as of this encounter
--- OUTSIDE RECORDS SUMMARY | 2024-03-02 04:02 | XMS_ITS | Encounter Summary ---
Author Organization [facility] Address [address] [place] [address]. [place], [place] [address] [place] [address] Care Team Providers Care Advertising Manager Name Role Phone Clara Stanley Primary Care Provider [phone] Dominick Mccloud MD Unavailable [phone] Reason for Visit * Reason Comments Anxiety Abdominal Discomfort Encounter Details Date Type Department Care Team (Late st Contact Info) Description 04/01/2019 2:20 PM GROUNDSKEEPER SUPERVISOR [facility] [address] [place] [address] Clara Stanley APNP [address] [place] [address] Anxiety; Abdominal Discomfort Social History [...] Comments Blood Pressure 124/77 04/01/2019 2:19 PM GROUNDSKEEPER SUPERVISOR Pulse 74 04/01/2019 2:19 PM GROUNDSKEEPER SUPERVISOR Temperature 36.1 ??C (97 ??F) 04/01/2019 2:19 PM GROUNDSKEEPER SUPERVISOR Respiratory Rate 18 04/01/2019 2:19 PM GROUNDSKEEPER SUPERVISOR Oxygen Saturation 100% 04/01/2019 2:19 PM GROUNDSKEEPER SUPERVISOR Inhaled Oxygen Concentration - - Weight 161 kg (355 lb) 04/01/2019 2:19 PM GROUNDSKEEPER SUPERVISOR Height 190.5 cm (6' 3 ) 04/01/2019 2:19 PM GROUNDSKEEPER SUPERVISOR Body Mass Index 44.37 04/01/2019 2:19 PM GROUNDSKEEPER SUPERVISOR documented in this encounter Progress Notes * ZEB Nunn - 04/01/2019 2:20 PM CST Images from the original note were not included. [facility]ISIT [...] not an admission. PCP: ZEB Nunn 04/07/2019 NDSKEEPER SUPERVISOR NDSKEEPER SUPERVISOR documented in this encounter Plan of Treatment Upcoming Encounters Date Type Department Care Team (Late st Contact Info) Description 03/28/2024 7:30 AM GROUNDSKEEPER SUPERVISOR Hospital Encounter [facility] [place] [place] [address] Antwan Stone DPM [address], [place] [address] 03/28/2024 7:30 AM GROUNDSKEEPER SUPERVISOR Anesthesia [place] [address] Shanelle Avila, CHIMNEY SWEEPER [address] [place] [address] 03/28/2024 7:30 AM GROUNDSKEEPER SUPERVISOR - 03/28/2024 8:48 AM GROUNDSKEEPER SUPERVISOR Surgery [facility] [place] [address] Antwan Stone DPM [address] [place] [address] REMOVAL OF HARDWARE LEFT FOOT 04/05/2024 8:30 AM GROUNDSKEEPER SUPERVISOR Office Visit [facility]ren Hernandez'Marbella lopezn THREE [facility], [address] [place] [address] Dominick Mccloud MD Three [facility]. [facility] [address] [place], [place] [address] Scheduled Procedures Name Priority Associated Diagnoses Date/Ti me REMOVAL PLATE SCREW OR PIN SCHED BY FAX 02/08/24 KAYLIE PHONE ASSESS 03/28/2024 7:30 AM GROUNDSKEEPER SUPERVISOR documented as of this encounter Procedures Procedure Name Priority Date/Time Associated Diagnosis Comments COLLECT.CAPILLARY (FNGR,HEEL,EAR) Routine 04/01/2019 3:16 PM GROUNDSKEEPER SUPERVISOR Fatigue, unspecified type HETEROPHILE ANTIBODIES,SCREEN Routine 04/01/2019 Fatigue, unspecified type documented in this encounter Results * (ABNORMAL) COMPREHENSIVE METABOLIC PANEL (04/04/2019 2:38 PM GROUNDSKEEPER SUPERVISOR) [facility] GLUCOSE 87 70 - 99 MG/DL 04/04/2019 4:03 PM GROUNDSKEEPER SUPERVISOR [facility] BUN 14 7 - 18 MG/DL 04/04/2019 4:03 PM [facility] CREATININE S/P/B 0.83 0.7 - 1.3 MG/DL 04/04/2019 4:03 PM [facility] SODIUM S/P/B 132(L) 136 - 145 MMOL/L 04/04/2019 4:03 PM [facility] POTASSIUM S/P/B 3.7 3.5 - 5.1 MMOL/L 04/04/2019 4:03 PM [facility] CHLORIDE S/P/B 103 100 - 108 MMOL/L 04/04/2019 4:03 PM [facility] CO2 22.8 21 - 32 MMOL/L 04/04/2019 4:03 PM [facility] CALCIUM S/P/B 8.9 8.5 - 10.1 MG/DL 04/04/2019 4:03 PM [facility] BILIRUBIN TOTAL S/P/B 0.3 0.2 - 1.2 MG/DL 04/04/2019 4:03 PM [facility] TOTAL PROTEIN S/P/B 8.0 6.4 - 8.2 G/DL 04/04/2019 4:03 PM [facility] ALBUMIN S/P/B 4.0 3.4 - 5.0 G/DL 04/04/2019 4:03 PM [facility] AST 11(L) 15 - 37 U/L 04/04/2019 4:03 PM [facility] ALT 28 16 - 60 U/L 04/04/2019 4:03 PM [facility] ALKALINE PHOSPHATASE S/P/B 83 50 - 136 U/L 04/04/2019 4:03 PM [facility] ANION GAP 6.2 5 - 15 MMOL/L 04/04/2019 4:03 PM [facility] BUN CREATININE RATIO 16.8 6 - 26 04/04/2019 4:03 PM [facility] A/G RATIO 1.0 1.0 - 2.0 RATIO 04/04/2019 4:03 PM [facility] EGFR NON-AFR. AMER. >90 >90 ML/MIN/1.7 3 M2 04/04/2019 4:03 PM [facility] EGFR AFR. AMER. >90 >90 ML/MIN/1.7 3 M2 04/04/2019 4:03 PM GROUNDSKEEPER SUPERVISOR [facility] Comment: NOTE: eGFR is not calculated for patients <18 years of age. This is an estimated GFR (CKD EPI) and should not be used for calculating drug doses. 04/04/2019 2:38 PM GROUNDSKEEPER SUPERVISOR [facility] Final Resul t [facility] [address] [place] [address], * (ABNORMAL) CBC W/DIFF AUTOMATED (04/04/2019 2:38 PM GROUNDSKEEPER SUPERVISOR) WBC 12.5(H) 4.5 - 11.0 x10'3/uL 04/04/2019 3:30 PM [facility] RBC 4.89 4.70 - 6.10 x10'6/uL 04/04/2019 3:30 PM [facility] HGB 13.9(L) 14.0 - 18.0 G/DL 04/04/2019 3:30 PM [facility] HCT 41.7(L) 43.0 - 54.0 % 04/04/2019 3:30 PM [facility] MCV 85.3 80.0 - 94.0 FL 04/04/2019 3:30 PM [facility] MCH 28.4 27.0 - 31.0 PG 04/04/2019 3:30 PM [facility] MCHC 33.3 32.0 - 36.0 G/DL 04/04/2019 3:30 PM [facility] RDW 13.0 11.5 - 14.5 % 04/04/2019 3:30 PM [facility] PLT 322 130 - 400 x10'3/uL 04/04/2019 3:30 PM [facility] MPV 11.3 9.3 - 12.2 FL 04/04/2019 3:30 PM [facility] DIFFERENTIAL TYPE AUTOMATED DIFFERENTIAL 04/04/2019 3:30 PM [facility] NEUTROPHILS % 76.8 % 04/04/2019 3:30 PM [facility] LYMPHOCYTES % 12.4 % 04/04/2019 3:30 PM [facility] MONOCYTES % 7.6 % 04/04/2019 3:30 PM [facility] EOSINOPHILS 1.6 % 04/04/2019 3:30 PM [facility] BASOPHILS 0.6 % 04/04/2019 3:30 PM [facility] IMMATURE GRANS % 1.0 % 04/04/19 3:30 PM [facility] ABS. NEUTROPHILS TOTAL 9.54(H) 1.80 - 7.70 x10'3/uL 04/04/2019 3:30 PM [facility] ABS. LYMPHOCYTES 1.55 1.00 - 4.80 x10'3/uL 04/04/2019 3:30 PM [facility] ABS. MONOCYTES 0.95(H) 0.30 - 0.82 x10'3/uL 04/04/2019 3:30 PM [facility] ABS. EOSINOPHILS 0.20 0.04 - 0.54 x10'3/uL 04/04/2019 3:30 PM [facility] ABS. BASOPHILS 0.08 0.01 - 0.08 x10'3/uL 04/04/2019 3:30 PM [facility] ABS. IMMATURE GRANULOCYTES 0.13 0.00 - 0.49 x10'3/uL 04/04/2019 3:30 PM GROUNDSKEEPER SUPERVISOR [facility] 04/04/2019 2:38 PM GROUNDSKEEPER SUPERVISOR [facility] Final Resul t Performing Organization Address [facility] Co de Phone Number [facility] [address] [place] [address], * HETEROPHILE ANTIBODIES,SCREEN (04/01/2019) HETEROPHILE ANTIBODIES negative NEGATIVE [facility] Internal Control: VALID VALID [facility] 04/01/2019 [facility] Final Resul t Performing Organization Address [facility] de Phone Number [facility] [address] [place] [address], documented in this encounter Visit Diagnoses Diagnosis IIH (idiopathic intracranial hypertension)- Primary Benign intracranial hypertension Insomnia, unspecified type Fatigue, unspecified type Acute bilateral low back pain without sciatica Abdominal bloating Flatulence, eructation, and gas pain Painful orthopaedic hardware (CMS/HCC)- Primary documented in this encounter Care Teams Advertising Manager Relationship Specialty Start Date End Date Clara Stanley APNP [facility] [place] [address] PCP - General NURSE PRACTITIONER 06/01/18 Dominick Mccloud MD Three [facility]. [facility] [address] [place] [address] [place] Kid Buffer CARDIOVASCULAR DISEASE 03/28/19 documented as of this encounter
--- OUTSIDE RECORDS SUMMARY | 2024-03-02 04:02 | XMS_ITS | Encounter Summary ---
Author Organization [facility] Address [address] [place] [address]. [place], [place] [phone] [place] [address] Care Team Providers Care Project Controller Name Role Phone Clara Stanley Primary Care Provider [phone] Reason for Visit * Reason Comments Dizziness Encounter Details Date Type Department Care Team (Late st Contact Info) Description 03/22/2019 11:00 AM REACH LIFT TRUCK DRIVER Office Visit [facility] Family & Internal Medicine [address] [place] [address] Clara Stanley APNP [address] [place], [place] [phone] Dizziness Social History Tobacco Use Types Packs/Day [...] Comments Blood Pressure 142/86 03/22/2019 12:20 PM REACH LIFT TRUCK DRIVER Pulse 72 03/22/2019 11:23 AM REACH LIFT TRUCK DRIVER Temperature 36.9 ??C (98.5 ??F) 03/22/2019 11:[address] Respiratory Rate 16 03/22/2019 11:23 AM REACH LIFT TRUCK DRIVER Oxygen Saturation 97% 03/22/2019 11:23 AM REACH LIFT TRUCK DRIVER Inhaled Oxygen Concentration - - Weight 166 kg (366 lb) 03/22/2019 11:23 AM REACH LIFT TRUCK DRIVER Height 190.5 cm (6' 3 ) 03/22/2019 11:23 AM REACH LIFT TRUCK DRIVER Body Mass Index 45.75 03/22/2019 11:23 AM REACH LIFT TRUCK DRIVER documented in this encounter Progress Notes * ZEB Nunn - 03/22/2019 11:00 AM CST Images from the original note were not included. [facility] FAMILY AND INTERNAL MEDICINE OFFICE [...] file Gets together: Not on file Attends nondenominational service: Not on file Active member of [...] not an admission. PCP: ZEB Nunn 03/24/2019 H LIFT TRUCK DRIVER documented in this encounter Plan of Treatment Upcoming Encounters Date Type Department Care Team (Late st Contact Info) Description 03/28/2024 7:30 AM REACH LIFT TRUCK DRIVER Hospital Encounter [facility] [place] [address] Antwan Stone, DIEGO [address], [place] [address] 03/28/2024 7:30 AM REACH LIFT TRUCK DRIVER Anesthesia [place] [address] Shanelle Avila, RESTAURANT MANAGER [address] [place] [address] 03/28/2024 7:30 AM REACH LIFT TRUCK DRIVER - 03/28/2024 8:48 AM REACH LIFT TRUCK DRIVER Surgery [facility] [place] [address] Antwan Stone, DIEGO [address], [place] [address] REMOVAL OF HARDWARE LEFT FOOT 04/05/2024 8:30 AM REACH LIFT TRUCK DRIVER Office Visit Darren Chaudhari-O'F allon THREE [facility], [facility] [address] [place] [address] Dominick Mccloud MD Three [facility]. [facility] [address] [place] [address] Scheduled Procedures Name Priority Associated Diagnoses Date/Ti me REMOVAL PLATE SCREW OR PIN SCHED BY FAX 02/08/24 JUANITOS PHONE ASSESS 03/28/2024 7:30 AM REACH LIFT TRUCK DRIVER documented as of this encounter Procedures Procedure Name Priority Date/Time Associated Diagnosis Comments VENIPUNC ARM DRAW Routine 03/23/2019 7:24 AM REACH LIFT TRUCK DRIVER Intractable tension-type headache, unspecified chronicity pattern Dizziness Acute non-recurrent frontal sinusitis documented in this encounter Results * XR CERV SPINE 3V (03/22/2019 12:34 PM REACH LIFT TRUCK DRIVER) Anatomical Region Laterality Modality Spine Radiographic Trang ging 03/22/2019 1:35 PM REACH LIFT TRUCK DRIVER Impressions 03/22/2019 2:22 PM REACH LIFT TRUCK DRIVER ===== IMPRESSION: ===== 1. ??No acute osseous abnormalities in the visualized cervical spine. Interpreted By: Bright Dumont, 03/22/2019 1:35 PM Narrative 03/22/2019 2:22 PM REACH LIFT TRUCK DRIVER Examination: Cervical spine , 3 view Exam [...] WI REFLEX TO CULTURE (03/22/2019 12:24 PM REACH LIFT TRUCK DRIVER) SPECIMEN TYPE URINE CLEAN CATCH 03/22/2019 6:19 PM [facility] COLOR (U) YELLOW 03/22/2019 7:44 PM [facility] TRANSPARENCY CLEAR 03/22/2019 7:44 PM [facility] SPECIFIC GRAVITY (U) 1.028 1.001 - 1.030 03/22/2019 7:44 PM [facility] U PH 5.0 5.0 - 9.0 03/22/2019 7:44 PM [facility] LEUKOCYTES (U) NEGATIVE NEGATIVE 03/22/2019 7:44 PM [facility] NITRITES NEGATIVE NEGATIVE 03/22/2019 7:44 PM [facility] PROTEIN (U) NEGATIVE <30 MG/DL 03/22/2019 7:44 PM [facility] URINE GLUCOSE NEGATIVE NEGATIVE MG/DL 03/22/2019 7:44 PM [facility] KETONES MG/DL (U) NEGATIVE NEGATIVE MG/DL 03/22/2019 7:44 PM [facility] UROBILINOGEN NEGATIVE NEGATIVE MG/DL 03/22/2019 7:44 PM [facility] BILIRUBIN (U) NEGATIVE NEGATIVE MG/DL 03/22/2019 7:44 PM [facility] BLOOD (U) NEGATIVE NEGATIVE 03/22/2019 7:44 PM [facility] CULTURE & SENSITIVITY INDICATED? CULTURE IS NOT INDICATED 03/22/2019 7:44 PM [facility] SQUAMOUS EPITHELIALS MODERATE /LPF 03/22/2019 7:44 PM [facility] MUCUS MODERATE /LPF 03/22/2019 7:44 PM [facility] WBC/HPF 1 <6 /HPF 03/22/2019 7:44 PM [facility] RBC/HPF <1 <6 /HPF 03/22/2019 7:44 PM [facility] URINE SPECIMEN OBTAINED BY CLEAN CATCH PROCEDURE / Unknown 03/22/2019 12:24 PM REACH LIFT TRUCK DRIVER Clara Stanley APNP URINE ORDERABLES Final Resu lt [facility] [address] [place] [address], [place] [phone] * (ABNORMAL) COMPREHENSIVE METABOLIC PANEL (03/22/2019 12:24 PM REACH LIFT TRUCK DRIVER) GLUCOSE 71 70 - 99 MG/DL 03/22/2019 8:35 PM [facility] BUN 12 7 - 18 MG/DL 03/22/2019 8:35 PM [facility] CREATININE S/P/B 0.88 0.7 - 1.3 MG/DL 03/22/2019 8:35 PM [facility] SODIUM S/P/B 133(L) 136 - 145 MMOL/L 03/22/2019 8:35 PM [facility] POTASSIUM S/P/B 5.1 3.5 - 5.1 MMOL/L 03/22/2019 8:35 PM [facility] CHLORIDE S/P/B 99(L) 100 - 108 MMOL/L 03/22/2019 8:35 PM [facility] CO2 24.8 21 - 32 MMOL/L 03/22/2019 8:35 PM [facility] CALCIUM S/P/B 9.3 8.5 - 10.1 MG/DL 03/22/2019 8:35 PM [facility] BILIRUBIN TOTAL S/P/B 0.4 0.2 - 1.2 MG/DL 03/22/2019 8:35 PM [facility] TOTAL PROTEIN S/P/B 8.0 6.4 - 8.2 G/DL 03/22/2019 8:35 PM [facility] ALBUMIN S/P/B 4.2 3.4 - 5.0 G/DL 03/22/2019 8:35 PM [facility] AST 15 15 - 37 U/L 03/22/2019 8:35 PM [facility] ALT 24 16 - 60 U/L 03/22/2019 8:35 PM [facility] ALKALINE PHOSPHATASE S/P/B 89 50 - 136 U/L 03/22/2019 8:35 PM [facility] ANION GAP 9.2 5 - 15 MMOL/L 03/22/2019 8:35 PM [facility] BUN CREATININE RATIO 13.7 6 - 26 03/22/2019 8:35 PM [facility] A/G RATIO 1.1 1.0 - 2.0 RATIO 03/22/2019 8:35 PM [facility] EGFR NON-AFR. AMER. >90 >90 ML/MIN/1.7 3 M2 03/22/2019 8:35 PM [facility] EGFR AFR. AMER. >90 >90 ML/MIN/1.7 3 M2 03/22/2019 8:35 PM [facility] Comment: NOTE: eGFR is not calculated for patients <18 years of age. This is an estimated GFR (CKD EPI) and should not be used for calculating drug doses. 03/22/2019 12:2 4 PM REACH LIFT TRUCK DRIVER us [facility] Final Resul t [facility] [address] [place] [address], [place] [phone] * (ABNORMAL) CBC W/DIFF AUTOMATED (03/22/2019 12:24 PM REACH LIFT TRUCK DRIVER) [facility] WBC 13.1(H) 4.5 - 11.0 x10'3/uL 03/22/2019 7:19 PM [facility] RBC 5.08 4.70 - 6.10 x10'6/uL 03/22/2019 7:19 PM [facility] HGB 14.6 14.0 - 18.0 G/DL 03/22/2019 7:19 PM [facility] HCT 44.4 43.0 - 54.0 % 03/22/2019 7:19 PM [facility] MCV 87.4 80.0 - 94.0 FL 03/22/2019 7:19 PM [facility] MCH 28.7 27.0 - 31.0 PG 03/22/2019 7:19 PM [facility] MCHC 32.9 32.0 - 36.0 G/DL 03/22/2019 7:19 PM [facility] RDW 12.6 11.5 - 14.5 % 03/22/2019 7:19 PM [facility] PLT 363 130 - 400 x10'3/uL 03/22/2019 7:19 PM [facility] MPV 12.2 9.3 - 12.2 FL 03/22/2019 7:19 PM [facility] DIFFERENTIAL TYPE AUTOMATED DIFFERENTIAL 03/22/2019 7:19 PM [facility] NEUTROPHILS % 74.1 % 03/22/2019 7:19 PM [facility] LYMPHOCYTES % 14.8 % 03/22/2019 7:19 PM [facility] MONOCYTES % 8.3 % 03/22/2019 7:19 PM [facility] EOSINOPHILS 1.6 % 03/22/2019 7:19 PM REACH LIFT TRUCK DRIVER [facility] BASOPHILS 0.5 % 03/22/2019 7:19 PM [facility] IMMATURE GRANS % 0.7 % 03/22/19 7:19 PM [facility] ABS. NEUTROPHILS TOTAL 9.69(H) 1.80 - 7.70 x10'3/uL 03/22/2019 7:19 PM REACH LIFT TRUCK DRIVER [facility] ABS. LYMPHOCYTES 1.93 1.00 - 4.80 x10'3/uL 03/22/2019 7:19 PM [facility] ABS. MONOCYTES 1.09(H) 0.30 - 0.82 x10'3/uL 03/22/2019 7:19 PM [facility] ABS. EOSINOPHILS 0.21 0.04 - 0.54 x10'3/uL 03/22/2019 7:19 PM [facility] ABS. BASOPHILS 0.07 0.01 - 0.08 x10'3/uL 03/22/2019 7:19 PM [facility] ABS. IMMATURE GRANULOCYTES 0.09 0.00 - 0.49 x10'3/uL 03/22/2019 7:19 PM [facility] 03/22/2019 12:2 4 PM REACH LIFT TRUCK DRIVER us [facility] Final Resul t [facility] [address] [place] [address], [place] [phone] documented in this encounter Visit Diagnoses Diagnosis Intractable tension-type headache, unspecified chronicity pattern- Primary Dizziness Dizziness and giddiness Acute non-recurrent frontal sinusitis Painful orthopaedic hardware (CMS/HCC)- Primary documented in this encounter Care Teams Project Controller Relationship Specialty Start Date End Date Clara Stanley APNP [address] [place], [place] [id number] PCP - General NURSE PRACTITIONER 06/01/18 documented as of this encounter
--- OUTSIDE RECORDS SUMMARY | 2024-03-02 04:02 | XMS_ITS | Encounter Summary ---
Author Organization [facility] Address [address] [place] [address]. [place], [place] [address] [place] [address] Care Team Providers Care Inventory Manager Name Role Phone Irwin Stanley Primary Care Provider [phone] Dominick Mccloud MD Unavailable [phone] Reason for Visit * Reason Comments Follow Up Encounter Details Date Type Department Care Team (Late st Contact Info) Description 04/04/2019 9:20 AM HEALTH INSPECTOR Office Visit [facility] Family & Internal Medicine [address] [place] [phone] Irwin Stanley APNP [facility] [place] [address] Follow Up Social History Tobacco [...] Comments Blood Pressure 131/77 04/04/2019 10:02 AM HEALTH INSPECTOR Pulse 79 04/04/2019 9:25 AM HEALTH INSPECTOR Temperature 35.6 ??C (96 ??F) 04/04/2019 9:25 AM HEALTH INSPECTOR Respiratory Rate 16 04/04/2019 9:25 AM HEALTH INSPECTOR Oxygen Saturation 100% 04/04/2019 9:25 AM HEALTH INSPECTOR Inhaled Oxygen Concentration - - Weight 163.3 kg (360 lb) 04/04/2019 9:25 AM HEALTH INSPECTOR Height 190.5 cm (6' 3 ) 04/04/2019 9:25 AM HEALTH INSPECTOR Body Mass Index 45 04/04/2019 9:25 AM HEALTH INSPECTOR documented in this encounter Progress Notes * ZEB Nunn - 04/04/2019 9:20 AM CSTAddended by: IRWIN STANLEY on: 04/07/2019 11:57 AM Modules accepted: Level of Service TH INSPECTOR * ZEB Nunn - 04/04/2019 9:20 AM CST Images from the original note were not included. [facility] FAMILY AND INTERNAL MEDICINE OFFICE VISIT Reason for Visit: Follow Up History of Present Illness: Pt here today for TCM and a follow up from Thursday where he was treated for insomnia and abdominal discomfort. TCM -patient was mended through [facility] per neurology service on March 23, 2019 and discharged on March 25, 2019. 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 Patient was discharged home on acetazolamide and topiramate. He states he has been unable to tolerate the topiramate and discontinued this on of last week after contacting neurology at [facility]. [facility] at [facility] patient had a lumbar puncture which was negative for viral fungus or bacteria. He had a head CT, brain MRI and brain MRA all of which were negative. He did have an elevated white blood cell count, but he had this previously at [facility]. It is never resolved. He was discharged [...] IIH (idiopathic intracranial hypertension) ??? Morbid obesity ([facility]) 02/21/2015 ??? Other and unspecified hyperlipidemia 01/06/2014 [...] file Gets together: Not on file Attends baptism service: Not on file Active member of [...] not an admission. PCP: ZEB Nunn 04/04/2019 TH INSPECTOR TH INSPECTOR documented in this encounter Plan of Treatment Upcoming Encounters Date Type Department Care Team (Late st Contact Info) Description 03/28/2024 7:30 AM HEALTH INSPECTOR Hospital Encounter [facility] [place] [address] Antwan Stone, DIEGO [address], [place] [address] 03/28/2024 7:30 AM HEALTH INSPECTOR Anesthesia Event [place] [address] Shanelle Avila, SPA MANAGER/ESTHETICIAN [address] [place] [address] 03/28/2024 7:30 AM HEALTH INSPECTOR - 03/28/2024 8:48 AM HEALTH INSPECTOR Surgery [place] [address] Antwan Stone, DIEGO [address], [place] [address] REMOVAL OF HARDWARE LEFT FOOT 04/05/2024 8:30 AM HEALTH INSPECTOR Office Visit Darren Chaudhari-O'F johnn THREE [facility], [facility] [address] [place] [address] Dominick Mccloud MD Three [facility]. [facility] [address] [place] [address] Scheduled Procedures Name Priority Associated Diagnoses Date/Ti me REMOVAL PLATE SCREW OR PIN SCHED BY FAX 02/08/24 [facility] PHONE ASSESS 03/28/2024 7:30 AM HEALTH INSPECTOR documented as of this encounter Results * XR THOR SPINE 3V (04/04/2019 10:23 AM HEALTH INSPECTOR) Anatomical Region Laterality Modality Spine Radiographic Trang ging 04/04/2019 10:0 8 AM HEALTH INSPECTOR Narrative 04/04/2019 9:47 PM HEALTH INSPECTOR Thoracic spine Exam Date: 04/04/2019. Indications: Mid [...] Mark Saravia MD, 04/04/2019 9:39 PM [facility]win [facility] Final Resul t * XR LUMB SPINE 3V (04/04/2019 10:22 AM HEALTH INSPECTOR) Anatomical Region Laterality Modality Spine Radiographic Trang ging 04/04/2019 3:24 PM HEALTH INSPECTOR Impressions 04/04/2019 3:25 PM HEALTH INSPECTOR IMPRESSION: No acute findings Interpreted By: Ruben Mahoney MD, 04/04/2019 3:24 PM Narrative 04/04/2019 3:25 PM HEALTH INSPECTOR 3 VIEWS OF THE LUMBAR SPINE Clinical [...] Primary documented in this encounter Care Teams Inventory Manager Relationship Specialty Start Date End Date Irwin Stanley APNP [address] [place] [address] PCP - General NURSE PRACTITIONER 06/01/18 Dominick Mccloud MD [facility] [address] [place] [address] [place] Sales Person CARDIOVASCULAR DISEASE 03/28/19 documented as of this encounter
--- OUTSIDE RECORDS SUMMARY | 2024-03-02 04:02 | XMS_ITS | Encounter Summary ---
Author Organization [facility] Address [address] [place] [address]. [place], [place] [address] [place] [address] Care Team Providers Care Global Commodity Manager Name Role Phone Clara Stanley Primary Care Provider [phone] Dominick Mccloud MD Unavailable [phone] Reason for Visit * Reason Onset Date Comments Orders 04/07/2019 Encounter Details Date Type Department Care Team (Late st Contact Info) Description 04/07/2019 Telephone [facility] Medical Group Family & Internal Medicine [facility] [address] [place] [phone] Clara Stanley APNP [address] [place] [address] Orders Social History Tobacco Use [...] who agreed to call and arrange this [id number] for me. She did attempt to call and schedule a peer to peer but was told that at this time a peer to peer was not available but we are able to resubmit a request for further review. JOINER * Jadyn Riley MA - 04/07/2019 8:59 AM CST Note ----- Message ----- From: Dbe Goode Sent: 04/05/2019 9:35 AM To: ZEB [...] not indicated at this time. ?? A [id number] can be scheduled by calling [phone], option 4, case #[id number]. ?? Thank you. ?? JOINER documented in this encounter Plan of Treatment Upcoming Encounters Date Type Department Care Team (Late st Contact Info) Description 03/28/2024 7:30 AM SHIP JOINER Hospital Encounter [facility] [place] [address] Antwan Stone DPM [address], [place] [address] 03/28/2024 7:30 AM SHIP JOINER Anesthesia [place] [address] Shanelle Avila, CYBER CRIME INVESTIGATOR [address] [place] [address] 03/28/2024 7:30 AM SHIP JOINER - 03/28/2024 8:48 AM SHIP JOINER Surgery [place] [address] Antwan Stone, DPÁngel [address], [place] [address] REMOVAL OF HARDWARE LEFT FOOT 04/05/2024 8:30 AM SHIP JOINER Office Visit [facility]-O'F allon THREE [facility], [facility] [address] [place], [place] [address] Dominick Mccloud MD Three [facility]. [facility] [address] [place], [place] [address] Scheduled Procedures Name Priority Associated Diagnoses Date/Ti me REMOVAL PLATE SCREW OR PIN SCHED BY FAX 02/08/24 [facility] PHONE ASSESS 03/28/2024 7:30 AM SHIP JOINER documented as of this encounter Visit Diagnoses Not on filedocumented in this encounter Care Teams Global Commodity Manager Relationship Specialty Start Date End Date Clara Stanley APNP [address] [place] [address] PCP - General NURSE PRACTITIONER 06/01/18 Dominick Mccloud MD Three [facility]. [facility] [address] [place], [place] [address] [place] Certified Legal Investigator CARDIOVASCULAR DISEASE 03/28/19 documented as of this encounter
--- OUTSIDE RECORDS SUMMARY | 2024-03-02 04:02 | XMS_ITS | Encounter Summary ---
Author Organization [facility] Address [address] [place] [address]. [place], [place] [address] [place] [address] Care Team Providers Care Extractor Loader And Unloader Name Role Phone Clara Stanley Primary Care Provider [phone] Dominick Mccloud MD Unavailable [phone] Reason for Visit * Reason Onset Date Comments Orders 04/08/2019 [place] Encounter Details Date Type Department Care Team (Late st Contact Info) Description 04/08/2019 Telephone [facility] Medical Group Family & Internal Medicine [facility] [address] [place] [phone] Ranjit Gallardo DO [address] [place] [address] Orders ([place] ) Social History [...] speaking to Dr. Gallardo, Dr. Bello, and RETAIL MARKETING EXECUTIVE Tayler Stanley. All the agree they are [...] and speak to one of the providers DOCUMENT IMPROVEMENT SPECIALIST * Torri Leong MA - 04/08/2019 9:00 [...] okay to change order to limited LUQ/RUQ? DOCUMENT IMPROVEMENT SPECIALIST documented in this encounter Plan of Treatment Upcoming Encounters Date Type Department Care Team (Late st Contact Info) Description 03/28/2024 7:30 AM RN DOCUMENT IMPROVEMENT SPECIALIST Hospital Encounter [facility] [place] [address] Antwan Stone, DIEGO [address], [place] [address] 03/28/2024 7:30 AM RN DOCUMENT IMPROVEMENT SPECIALIST Anesthesia Event [facility] [place] [address] Shanelle Avila, SECONDARY ART TEACHER [address] [place] [address] 03/28/2024 7:30 AM RN DOCUMENT IMPROVEMENT SPECIALIST - 03/28/2024 8:48 AM RN DOCUMENT IMPROVEMENT SPECIALIST Surgery [facility] [place] [address] Antwan Stone, DPM [address] [place], [place] [address] REMOVAL OF HARDWARE LEFT FOOT 04/05/2024 8:30 AM RN DOCUMENT IMPROVEMENT SPECIALIST Office Visit [place] [facility] THREE [facility], [facility] [address] [place], [place] [phone] Dominick Mccloud MD [facility]. [facility] [address] [place], [place] [phone] Scheduled Procedures Name Priority Associated Diagnoses Date/Ti me REMOVAL PLATE SCREW OR PIN SCHED BY FAX 02/08/24 [facility] PHONE ASSESS 03/28/2024 7:30 AM RN DOCUMENT IMPROVEMENT SPECIALIST documented as of this encounter Visit Diagnoses Not on filedocumented in this encounter Care Teams Extractor Loader And Unloader Relationship Specialty Start Date End Date Clara Stanley APNP [address] [place] [address] PCP - General NURSE PRACTITIONER 06/01/18 Dominick Mccloud MD [facility]. [facility] [address] [place], [place] [address] [place] Exercise Physiology Professor CARDIOVASCULAR DISEASE 03/28/19 documented as of this encounter
--- OUTSIDE RECORDS SUMMARY | 2024-03-02 04:02 | XMS_ITS | Encounter Summary ---
Author Organization [facility] Address [address] [place] [address]. [place], [place] [address] [place] [address] Care Team Providers Care Regional Maintenance Manager Name Role Phone Clara Stanley Primary Care Provider [phone] Dominick Mccloud MD Unavailable [phone] Reason for Visit * Reason Onset Date Comments TCM 04/04/2019 Encounter Details Date Type Department Care Team (Late st Contact Info) Description 04/04/2019 Telephone [facility] Medical Group Family & Internal Medicine [facility] [address] [place] [address] Clara Stanley APNP [address] [place] [address] TCM Social History Tobacco Use [...] of hospital discharge: 03/25/19 Patient discharged from: [facility] Discharge diagnosis/diagnoses: Aseptic meningitis Current Outpatient [...] EASON 04/08/2019 2:30 PM [facility] documented in this encounter Plan of Treatment Upcoming Encounters Date Type Department Care Team (Late st Contact Info) Description 03/28/2024 7:30 AM PACKAGE CRIMPER Hospital Encounter [facility] [place] [place] [address] Antwan Stone, TEJASM [address], [place] [address] 03/28/2024 7:30 AM PACKAGE CRIMPER Anesthesia [place] [address] Shanelle Avila, RAEANN [address] [place] [address] 03/28/2024 7:30 AM PACKAGE CRIMPER - 03/28/2024 8:48 AM PACKAGE CRIMPER Surgery [place] [address] Antwan Stone, DIEGO [address], [place] [address] REMOVAL OF HARDWARE LEFT FOOT 04/05/2024 8:30 AM PACKAGE CRIMPER Office Visit [facility] Cardi[facility]-O'F allon THREE [facility] [address] [place] [address] Dominick Mccloud MD Three [facility]. [facility] [address] [place] [address] Scheduled Procedures Name Priority Associated Diagnoses Date/Ti me REMOVAL PLATE SCREW OR PIN SCHED BY FAX 02/08/24 [facility] PHONE ASSESS 03/28/2024 7:30 AM PACKAGE CRIMPER documented as of this encounter Visit Diagnoses Not on filedocumented in this encounter Care Teams Regional Maintenance Manager Relationship Specialty Start Date End Date Clara Stanley APNP [address] [place] [address] PCP - General NURSE PRACTITIONER 06/01/18 Dominick Mccloud MD [facility] [address] [place] [address] [place] Machine Fur Cleaner CARDIOVASCULAR DISEASE 03/28/19 documented as of this encounter
--- OUTSIDE RECORDS SUMMARY | 2024-03-02 04:02 | XMS_ITS | Encounter Summary ---
Author Organization [facility] Address [address] [place] [address] [address] Care Team Providers Care Tin Flipper Name Role Phone Clara Stanley Primary Care Provider [phone]- [phone] Reason for Visit * Reason Onset Date Comments Headache 03/23/2019 Encounter Details Date Type Department Care Team (Late st Contact Info) Description 03/23/2019 Telephone [facility] Medical Group Family & Internal Medicine [place] [address] [place] [address] Clara Stanley APNP [address] [place] [address] Headache Social History Tobacco Use [...] Voiced understanding and will go to U. LEADER * ZEB Nunn - 03/23/2019 9:25 AM CST Other than a still elevated WBC at 13.1--there were no abnormalities. I ran this by my collaborating physician and we think he needs to return to the ER. LEADER * Cris Yusuf - 03/23/2019 7:18 AM CST Pts calling, pts headache worsened last night and he could not sleep, she said he is in tears.Asking if they could get lab results anastasiya and if there is any other testing that might be able to see what is wrong? LEADER documented in this encounter Plan of Treatment Upcoming Encounters Date Type Department Care Team (Late st Contact Info) Description 03/28/2024 7:30 AM LEAN LEADER Hospital Encounter [facility] [place] [address] Antwan Stone DPM [address], [place] [address] 03/28/2024 7:30 AM LEAN LEADER Anesthesia [place] [address] Shanelle Avila, WIRE WRAPPER 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 [address] [place] [address] 03/28/2024 7:30 AM LEAN LEADER - 03/28/2024 8:48 AM LEAN LEADER Surgery [facility] [address] Antwan Stone DPM [address], [place] [address] REMOVAL OF HARDWARE LEFT FOOT 04/05/2024 8:30 AM LEAN LEADER Office Visit Darren Hernandez'Marbella fleming THREE [facility], [facility] [address] [place] [address] Dominick Mccloud MD Three [facility]. [facility] [address] [place], [place] [address] Scheduled Procedures Name Priority Associated Diagnoses Date/Ti me REMOVAL PLATE SCREW OR PIN SCHED BY FAX 02/08/24 KAYLIE PHONE ASSESS 03/28/2024 7:30 AM LEAN LEADER documented as of this encounter Visit Diagnoses Not on filedocumented in this encounter Care Teams Tin Flipper Relationship Specialty Start Date End Date Clara Stanley APNP [address] [place] [address] PCP - General NURSE PRACTITIONER 06/01/18 documented as of this encounter
--- OUTSIDE RECORDS SUMMARY | 2024-03-02 04:02 | XMS_ITS | Encounter Summary ---
Author Organization [facility] Address [address] [place] [address]. [place], [place] [address] [place] [address] Care Team Providers Care Groundsman Name Role Phone Clara Stanley Primary Care Provider [phone] Dominick Mccloud MD Unavailable [phone] Reason for Referral * Imaging (Emergency) - Closed Specialty Diagnoses / Procedures Referred By Erik t Referred To Contact RADIOLOGY Diagnoses Left upper quadrant pain Procedures CT ABD+PEL W CON Clara Stanley APNP [address] [place] [address] Phone: tel: fax: Referral ID Status Reason Start Date Expiration Date Visits Re quested Visits Authorized [id number] Closed 04/04/2019 07/03/2019 1 1 RIBUTOR PUBLICATIONS Reason for Visit * Reason Onset Date Comments Orders 04/04/2019 Encounter Details Date Type Department Care Team (Late st Contact Info) Description 04/04/2019 Telephone [facility] Medical Group Family & Internal Medicine - [place] [address] [place] [address] Clara Stanley APNP [address] [place] [address] Orders Social History Tobacco Use [...] to be abd/pelvis with , order entered RIBUTOR PUBLICATIONS documented in this encounter Plan of Treatment Upcoming Encounters Date Type Department Care Team (Late st Contact Info) Description 03/28/2024 7:30 AM DISTRIBUTOR PUBLICATIONS Hospital Encounter [facility] [place] [address] Antwan Stone, DIEGO [address], [place] [address] 03/28/2024 7:30 AM DISTRIBUTOR PUBLICATIONS Anesthesia [place] [address] Shanelle Avila, GOLF CART ASSEMBLER [address] [place] [address] 03/28/2024 7:30 AM DISTRIBUTOR PUBLICATIONS - 03/28/2024 8:48 AM DISTRIBUTOR PUBLICATIONS Surgery [place] [address] Antwan Stone, DIEGO [address], [place] [address] REMOVAL OF HARDWARE LEFT FOOT 04/05/2024 8:30 AM DISTRIBUTOR PUBLICATIONS Office Visit Darren Chaudhari-O'Marbella alloelias THREE [facility], [facility] [address] [place] [address] Dominick Mccloud MD Three [facility]. [facility] [address] [place] [address] Scheduled Procedures Name Priority Associated Diagnoses Date/Ti me REMOVAL PLATE SCREW OR PIN SCHED BY FAX 02/08/24 [facility] PHONE ASSESS 03/28/2024 7:30 AM DISTRIBUTOR PUBLICATIONS documented as of this encounter Results * CT ABD+PEL W CON (04/04/2019 3:33 PM DISTRIBUTOR PUBLICATIONS) Anatomical Region Laterality Modality Abdomen Computed Tomogra phy 04/04/2019 3:58 PM DISTRIBUTOR PUBLICATIONS Impressions 04/04/2019 4:03 PM DISTRIBUTOR PUBLICATIONS IMPRESSION: 1. ??Suspicious 1.7 cm right lower [...] 04/04/2019 3:58 PM Narrative 04/04/2019 4:03 PM DISTRIBUTOR PUBLICATIONS Examination: CT ABD+PEL W CON Clinical history: [...] Primary documented in this encounter Care Teams Groundsman Relationship Specialty Start Date End Date Clara Stanley APNP [address] [place] [address] PCP - General NURSE PRACTITIONER 06/01/18 Dominick Mccloud MD [facility] [address] [place] [address] [place] Blueprint Machine Operator CARDIOVASCULAR DISEASE 03/28/19 documented as of this encounter
--- OUTSIDE RECORDS SUMMARY | 2024-03-02 04:02 | XMS_ITS | Encounter Summary ---
Author Organization [facility] Address [address] [place] [address]. [place], [place] [address] [place] [address] Care Team Providers Care Probation Manager Name Role Phone Clara Stanley Primary Care Provider [phone] Dominick Mccloud MD Unavailable [phone] Encounter Details Date Type Department Care Team (Late Contact Info) Description 03/28/2019 [facility], [address] [phone] Scanned, Documents Social History Tobacco Use Types [...] (Late Contact Info) Description 03/28/2024 7:[address] [facility] Hospital Encounter [facility] [place], [place] [id number] Antwan Stone, DIEGO [address], [place] [address] 03/28/2024 7:30 AM MARINE METEOROLOGIST Anesthesia Event [facility] [address] Shanelle Avila, SHEET CUTTER [address] [place] [address] 03/28/2024 7:30 AM MARINE METEOROLOGIST - 03/28/2024 8:48 AM MARINE METEOROLOGIST Surgery [facility] [address] Antwan Stone, DPM [address], [place] [address] REMOVAL OF HARDWARE LEFT FOOT 04/05/2024 8:30 AM MARINE METEOROLOGIST Office Visit Darren Chaudhari-O'F allon THREE [facility], [facility] [address] [place], [place] [address] Dominick Mccloud MD Three [facility]. [facility] [address] [place], [place] [address] Scheduled Procedures Name Priority Associated Diagnoses Date/Ti me REMOVAL PLATE SCREW OR PIN SCHED BY FAX 02/08/24 [facility] PHONE ASSESS 03/28/2024 7:30 AM MARINE METEOROLOGIST documented as of this encounter Visit Diagnoses Not on filedocumented in this encounter Care Teams Probation Manager Relationship Specialty Start Date End Date Clara Stanley APNP [address] [place] [address] PCP - General NURSE PRACTITIONER 06/01/18 Dominick Mccloud MD [facility]. [facility] [address] [place], [place] [address] Fely Accounts Supervisor CARDIOVASCULAR DISEASE 03/28/19 documented as of this encounter
--- OUTSIDE RECORDS SUMMARY | 2024-03-02 04:02 | XMS_ITS | Encounter Summary ---
Author Organization [facility] Address [address] [place] [address]. [place], [place] [address] [place] [address] Care Team Providers Care Hadoop Analyst Name Role Phone Clara Stanley Primary Care Provider [phone] Dominick Mccloud MD Unavailable [phone] Encounter Details Date Type Department Care Team (Latest Contact Info) Description 04/08/2019 6:30 PM HEALTH PROMOTION MANAGER - 04/08/2019 11:59 PM [facility] Hospital Encounter [facility] [place] [address] Yakov Bello MD [address] [place] [address] Discharge Disposition: Home or Self Care [...] 03/28/2024 7:30 AM [facility] Hospital Encounter [facility] [place] [address] Antwan Stone DPM [address], [place] [address] 03/28/2024 7:30 AM [facility] Anesthesia Event [facility] [place] [address] Shanelle Avila, DIRECTOR OF OCCUPATIONAL HEALTH [address] [place] [address] 03/28/2024 7:30 AM HEALTH PROMOTION MANAGER - 03/28/2024 8:48 AM HEALTH PROMOTION MANAGER Surgery [place] [address] Antwan Stone, DPM [address], [place] [address] REMOVAL OF HARDWARE LEFT FOOT 04/05/2024 8:30 AM HEALTH PROMOTION MANAGER Office Visit Darren Hernandez'Marbella allon THREE [facility], [facility] [address] [place] [address] Dominick Mccloud MD Three [facility]. [facility] [address] [place] [address] Scheduled Procedures Name Priority Associated Diagnoses Date/Ti me REMOVAL PLATE SCREW OR PIN SCHED BY FAX 02/08/24 KHMary PHONE ASSESS 03/28/2024 7:30 AM HEALTH PROMOTION MANAGER documented as of this encounter Procedures Procedure Name Priority Date/Time Associated Diagnosis Comments COMPREHENSIVE METABOLIC PANEL Routine 04/08/2019 11:51 AM HEALTH PROMOTION MANAGER Left upper quadrant pain C-REACTIVE PROTEIN Routine 04/08/2019 11 :51 AM HEALTH PROMOTION MANAGER Left upper quadrant pain CBC W/DIFF AUTOMATED Routine 04/08/2019 11:51 AM HEALTH PROMOTION MANAGER Left upper quadrant pain AMYLASE Routine 04/08/2019 11:51 AM HEALTH PROMOTION MANAGER Left upper quadrant pain LIPASE Routine 04/08/2019 11:51 AM HEALTH PROMOTION MANAGER Left upper quadrant pain documented in this encounter Results * (ABNORMAL) CBC W/DIFF AUTOMATED (04/08/2019 11:51 AM HEALTH PROMOTION MANAGER) [facility] Signature WBC 10.2 4.5 - 11.0 x10'3/uL 04/08/2019 8:22 PM [facility] RBC 5.05 4.70 - 6.10 x10'6/uL 04/08/2019 8:22 PM [facility] HGB 14.1 14.0 - 18.0 G/DL 04/08/2019 8:22 PM [facility] HCT 43.5 43.0 - 54.0 % 04/08/2019 8:22 PM [facility] MCV 86.1 80.0 - 94.0 FL 04/08/2019 8:22 PM [facility] MCH 27.9 27.0 - 31.0 PG 04/08/2019 8:22 PM [facility] MCHC 32.4 32.0 - 36.0 G/DL 04/08/2019 8:22 PM [facility] RDW 13.2 11.5 - 14.5 % 04/08/2019 8:22 PM [facility] PLT 298 130 - 400 x10'3/uL 04/08/2019 8:22 PM [facility] MPV 11.8 9.3 - 12.2 FL 04/08/2019 8:22 PM [facility] DIFFERENTIAL TYPE AUTOMATED DIFFERENTIAL 04/08/2019 8:22 PM [facility] NEUTROPHILS % 72.9 % 04/08/2019 8:22 PM [facility] LYMPHOCYTES % 14.8 % 04/08/2019 8:22 PM [facility] MONOCYTES % 9.0 % 04/08/2019 8:22 PM [facility] EOSINOPHILS 2.4 % 04/08/2019 8:22 PM [facility] BASOPHILS 0.5 % 04/08/2019 8:22 PM HEALTH PROMOTION MANAGER [facility] IMMATURE GRANS % 0.4 % 04/08/19 20 8:22 PM [facility] ABS. NEUTROPHILS TOTAL 7.41 1.80 - 7.70 x10'3/uL 04/08/2019 8:22 PM HEALTH PROMOTION MANAGER [facility] ABS. LYMPHOCYTES 1.50 1.00 - 4.80 x10'3/uL 04/08/2019 8:22 PM HEALTH PROMOTION MANAGER [facility] ABS. MONOCYTES 0.91(H) 0.30 - 0.82 x10'3/uL 04/08/2019 8:22 PM HEALTH PROMOTION MANAGER [facility] ABS. EOSINOPHILS 0.24 0.04 - 0.54 x10'3/uL 04/08/2019 8:22 PM [facility] ABS. BASOPHILS 0.05 0.01 - 0.08 x10'3/uL 04/08/2019 8:22 PM [facility] ABS. IMMATURE GRANULOCYTES 0.04 0.00 - 0.49 x10'3/uL 04/08/2019 8:22 PM HEALTH PROMOTION MANAGER [facility] 04/08/2019 11:5 1 AM HEALTH PROMOTION MANAGER Yakov Bello MD LABORATORY Final Result [facility] [address] [place] [address], * AMYLASE (04/08/2019 11:51 AM HEALTH PROMOTION MANAGER) AMYLASE S/P/B 28 25 - 115 UNITS/L 04/08/2019 8:38 PM HEALTH PROMOTION MANAGER [facility] 04/08/2019 11:5 1 AM HEALTH PROMOTION MANAGER us Yakov Bello MD LABORATORY Final Result [facility] [address] [place] [address], [place] [phone] * LIPASE (04/08/2019 11:51 AM HEALTH PROMOTION MANAGER) LIPASE 120 73 - 393 UNITS/L 04/08/2019 8:38 PM HEALTH PROMOTION MANAGER [facility] 04/08/2019 11:5 1 AM HEALTH PROMOTION MANAGER us Yakov Bello MD LABORATORY Final Result Performing Organization Address City/[facility] Co de Phone Number [facility] [address] [place] [address], [place] [phone] * (ABNORMAL) C-REACTIVE PROTEIN (04/08/2019 11:51 AM HEALTH PROMOTION MANAGER) C-REACTIVE PROTEIN 0.31(H) <0.29 mg/dL 04/08/2019 8:38 PM HEALTH PROMOTION MANAGER [facility] 04/08/2019 11:5 1 AM HEALTH PROMOTION MANAGER us Yakov Bello MD LABORATORY Final Result Performing Organization Address City/[facility]/ZIP Co de Phone Number [facility] [address] [place] [address], [place] [phone] * (ABNORMAL) COMPREHENSIVE METABOLIC PANEL (04/08/2019 11:51 AM HEALTH PROMOTION MANAGER) GLUCOSE 90 70 - 99 MG/DL 04/08/2019 8:38 PM HEALTH PROMOTION MANAGER [facility] BUN 12 7 - 18 MG/DL 04/08/2019 8:38 PM HEALTH PROMOTION MANAGER [facility] CREATININE S/P/B 0.82 0.7 - 1.3 MG/DL 04/08/2019 8:38 PM [facility] SODIUM S/P/B 134(L) 136 - 145 MMOL/L 04/08/2019 8:38 PM [facility] POTASSIUM S/P/B 4.1 3.5 - 5.1 MMOL/L 04/08/2019 8:38 PM [facility] CHLORIDE S/P/B 105 100 - 108 MMOL/L 04/08/2019 8:38 PM [facility] CO2 21.4 21 - 32 MMOL/L 04/08/2019 8:38 PM [facility] CALCIUM S/P/B 9.5 8.5 - 10.1 MG/DL 04/08/2019 8:38 PM [facility] BILIRUBIN TOTAL S/P/B 0.3 0.2 - 1.2 MG/DL 04/08/2019 8:38 PM [facility] TOTAL PROTEIN S/P/B 7.6 6.4 - 8.2 G/DL 04/08/2019 8:38 PM [facility] ALBUMIN S/P/B 4.0 3.4 - 5.0 G/DL 04/08/2019 8:38 PM [facility] AST 20 15 - 37 U/L 04/08/2019 8:38 PM [facility] ALT 31 16 - 60 U/L 04/08/2019 8:38 PM [facility] ALKALINE PHOSPHATASE S/P/B 79 50 - 136 U/L 04/08/2019 8:38 PM [facility] ANION GAP 7.6 5 - 15 MMOL/L 04/08/2019 8:38 PM [facility] BUN CREATININE RATIO 14.6 6 - 26 04/08/2019 8:38 PM [facility] A/G RATIO 1.1 1.0 - 2.0 RATIO 04/08/2019 8:38 PM HEALTH PROMOTION MANAGER [facility] EGFR NON-AFR. AMER. >90 >90 ML/MIN/1.7 3 M2 04/08/2019 8:38 PM HEALTH PROMOTION MANAGER [facility] EGFR AFR. AMER. >90 >90 ML/MIN/1.7 3 M2 04/08/2019 8:38 PM HEALTH PROMOTION MANAGER [facility] Comment: NOTE: eGFR is not calculated for patients <18 years of age. This is an estimated GFR (CKD EPI) and should not be used for calculating drug doses. 04/08/2019 11:5 1 AM HEALTH PROMOTION MANAGER us Yakov Bello MD LABORATORY Final Result [facility] [address] [place] [address], [place] [phone] documented in this encounter Visit Diagnoses Diagnosis Left upper quadrant pain Abdominal pain, left upper quadrant Painful orthopaedic hardware (CMS/HCC)- Primary documented in this encounter Care Teams Hadoop Analyst Relationship Specialty Start Date End Date Clara Stanley APNP [address] [place] [address] PCP - General NURSE PRACTITIONER 06/01/18 Dominick Mccloud MD Three [facility]. [facility] [address] [place] [address] [place] Bullet Assembly Press Operator CARDIOVASCULAR DISEASE 03/28/19 documented as of this encounter
--- OUTSIDE RECORDS SUMMARY | 2024-03-02 04:02 | XMS_ITS | Encounter Summary ---
Author Organization [facility] Address [address] [place] [address]. [place], [place] [address] [place] [address] Care Team Providers Care Traveling Phlebotomist Name Role Phone Clara Stanley Primary Care Provider [phone] Dominick Mccloud MD Unavailable Encounter Details Date Type Department Care Team (Late st Contact Info) Description 04/08/2019 11:40 AM DENTAL TECHNOLOGY ADVISOR Laboratory Only [facility] Medical Group Family & Internal Medicine [address] [address] Social History Tobacco Use Types [...] st Contact Info) Description 03/28/2024 7:30 AM DENTAL TECHNOLOGY ADVISOR Hospital Encounter [facility] [place] [address] Antwan Stone DPM [address], [place] [address] 03/28/2024 7:30 AM DENTAL TECHNOLOGY ADVISOR Anesthesia Event [place] [address] Shanelle Avila, TYPEWRITER REPAIRER [address] [place] [address] 03/28/2024 7:30 AM DENTAL TECHNOLOGY ADVISOR - 03/28/2024 8:48 AM DENTAL TECHNOLOGY ADVISOR Surgery [facility] [place] [address] Antwan Stone, DPM [address] [place] [address] REMOVAL OF HARDWARE LEFT FOOT 04/05/2024 8:30 AM DENTAL TECHNOLOGY ADVISOR Office Visit Darren Chaudhari-O'F allon THREE [facility], [facility] [address] [place] [address] Dominick Mccloud MD Three [facility]. [facility] [address] [place] [address] Scheduled Procedures Name Priority Associated Diagnoses Date/Ti me REMOVAL PLATE SCREW OR PIN SCHED BY FAX 02/08/24 [facility] PHONE ASSESS 03/28/2024 7:30 AM DENTAL TECHNOLOGY ADVISOR documented as of this encounter Procedures Procedure Name Priority Date/Time Associated Diagnosis Comments VENIPUNC ARM DRAW Routine 04/08/2019 12:24 PM DENTAL TECHNOLOGY ADVISOR Left upper quadrant pain documented in this encounter Visit Diagnoses Diagnosis Left upper quadrant pain- Primary Abdominal pain, left upper quadrant Painful orthopaedic hardware (CMS/HCC)- Primary documented in this encounter Care Teams Traveling Phlebotomist Relationship Specialty Start Date End Date Clara Stanley APNP [address] [place] [address] PCP - General NURSE PRACTITIONER 06/01/[address] [facility]. [facility] [address] [place] [address] [place] Panel Fitter CARDIOVASCULAR DISEASE 03/28/19 documented as of this encounter
--- OUTSIDE RECORDS SUMMARY | 2024-03-02 04:02 | XMS_ITS | Encounter Summary ---
Author Organization [facility] Address [address] [place] [address]. [place], [place] [address] [place] [address] Care Team Providers Care Laster Hand Name Role Phone Clara Stanley Primary Care Provider Encounter Details Date Type Department Care Team (Latest Contact Info) Description 03/22/2019 6:17 PM SKETCH ARTIST - 03/22/2019 11:[address] [facility] Hospital Encounter [facility] [place] [address] Clara Stanley APNP [facility] [place], [place] [phone] Discharge Disposition: Home or Self Care (Routine [...] PM CST Results discussed in other task CH ARTIST documented in this encounter Plan of Treatment Upcoming Encounters Date Type Department Care Team (Late st Contact Info) Description 03/28/2024 7:30 AM SKETCH ARTIST Hospital Encounter [facility] [place] [address] Antwan Stone, DIEGO [address], [place] [address] 03/28/2024 7:30 AM SKETCH ARTIST Anesthesia Event [place] [address] Shanelle Avila, AUTOMOBILE BODY REPAIR CHIEF [address] [place] [address] 03/28/2024 7:30 AM SKETCH ARTIST - 03/28/2024 8:48 AM SKETCH ARTIST Surgery [facility] [place] [address] Antwan Stone, DPM [address], [place] [address] REMOVAL OF HARDWARE LEFT FOOT 04/05/2024 8:30 AM SKETCH ARTIST Office Visit Darren Chaudhari-O'F allon THREE [facility], [facility] [address] [place], [place] [address] Dominick Mccloud MD Three [facility]. [facility] [address] [place], [place] [id number] Scheduled Procedures Name Priority Associated Diagnoses Date/Ti me REMOVAL PLATE SCREW OR PIN SCHED BY FAX 02/08/24 [facility] PHONE ASSESS 03/28/2024 7:30 AM SKETCH ARTIST documented as of this encounter Procedures Procedure Name Priority Date/Time Associated Diagnosis Comments URINALYSIS WI REFLEX TO CULTURE Routine 03/22/2019 12:24 PM SKETCH ARTIST Intractable tension-type headache, unspecified chronicity pattern Dizziness COMPREHENSIVE METABOLIC PANEL Routine 03/22/2019 12:24 PM SKETCH ARTIST Intractable tension-type headache, unspecified chronicity pattern Dizziness CBC W/DIFF AUTOMATED Routine 03/22/2019 12:24 PM SKETCH ARTIST Intractable tension-type headache, unspecified chronicity pattern Dizziness documented in this encounter Results * (ABNORMAL) COMPREHENSIVE METABOLIC PANEL (03/22/2019 12:24 PM SKETCH ARTIST) GLUCOSE 71 70 - 99 MG/DL 03/22/2019 8:35 PM SKETCH ARTIST [facility] BUN 12 7 - 18 MG/DL 03/22/2019 8:35 PM SKETCH ARTIST [facility] CREATININE S/P/B 0.88 0.7 - 1.3 MG/DL 03/22/2019 8:35 PM [facility] SODIUM S/P/B 133(L) 136 - 145 MMOL/L 03/22/2019 8:35 PM [facility] POTASSIUM S/P/B 5.1 3.5 - 5.1 MMOL/L 03/22/2019 8:35 PM [facility] CHLORIDE S/P/B 99(L) 100 - 108 MMOL/L 03/22/2019 8:35 PM [facility] CO2 24.8 21 - 32 MMOL/L 03/22/2019 8:35 PM [facility] CALCIUM S/P/B 9.3 8.5 - 10.1 MG/DL 03/22/2019 8:35 PM [facility] BILIRUBIN TOTAL S/P/B 0.4 0.2 - 1.2 MG/DL 03/22/2019 8:35 PM [facility] TOTAL PROTEIN S/P/B 8.0 6.4 - 8.2 G/DL 03/22/2019 8:35 PM [facility] ALBUMIN S/P/B 4.2 3.4 - 5.0 G/DL 03/22/2019 8:35 PM [facility] AST 15 15 - 37 U/L 03/22/2019 8:35 PM [facility] ALT 24 16 - 60 U/L 03/22/2019 8:35 PM [facility] ALKALINE PHOSPHATASE S/P/B 89 50 - 136 U/L 03/22/2019 8:35 PM [facility] ANION GAP 9.2 5 - 15 MMOL/L 03/22/2019 8:35 PM [facility] BUN CREATININE RATIO 13.7 6 - 26 03/22/2019 8:35 PM [facility] A/G RATIO 1.1 1.0 - 2.0 RATIO 03/22/2019 8:35 PM [facility] EGFR NON-AFR. AMER. >90 >90 ML/MIN/1.7 3 M2 03/22/2019 8:35 PM [facility] EGFR AFR. AMER. >90 >90 ML/MIN/1.7 3 M2 03/22/2019 8:35 PM [facility] Comment: NOTE: eGFR is not calculated for patients <18 years of age. This is an estimated GFR (CKD EPI) and should not be used for calculating drug doses. 03/22/2019 12:2 4 PM SKETCH ARTIST us Clara CARRINGTON LABORATORY Final Resul t [facility] [address] [place] [address], * URINALYSIS WI REFLEX TO CULTURE (03/22/2019 12:24 PM SKETCH ARTIST) SPECIMEN TYPE URINE CLEAN CATCH 03/22/2019 6:19 PM [facility] COLOR (U) YELLOW 03/22/2019 7:44 PM [facility] TRANSPARENCY CLEAR 03/22/2019 7:44 PM [facility] SPECIFIC GRAVITY (U) 1.028 1.001 - 1.030 03/22/2019 7:44 PM [facility] U PH 5.0 5.0 - 9.0 03/22/2019 7:44 PM [facility] LEUKOCYTES (U) NEGATIVE NEGATIVE 03/22/2019 7:44 PM [facility] NITRITES NEGATIVE NEGATIVE 03/22/2019 7:44 PM [facility] PROTEIN (U) NEGATIVE <30 MG/DL 03/22/2019 7:44 PM SKETCH ARTIST [facility] URINE GLUCOSE NEGATIVE NEGATIVE MG/DL 03/22/2019 7:44 PM [facility] KETONES MG/DL (U) NEGATIVE NEGATIVE MG/DL 03/22/2019 7:44 PM [facility] UROBILINOGEN NEGATIVE NEGATIVE MG/DL 03/22/2019 7:44 PM [facility] BILIRUBIN (U) NEGATIVE NEGATIVE MG/DL 03/22/2019 7:44 PM [facility] BLOOD (U) NEGATIVE NEGATIVE 03/22/2019 7:44 PM [facility] CULTURE & SENSITIVITY INDICATED? CULTURE IS NOT INDICATED 03/22/2019 7:44 PM [facility] SQUAMOUS EPITHELIALS MODERATE /LPF 03/22/2019 7:44 PM [facility] MUCUS MODERATE /LPF 03/22/2019 7:44 PM [facility] WBC/HPF 1 <6 /HPF 03/22/2019 7:44 PM [facility] RBC/HPF <1 <6 /HPF 03/22/2019 7:44 PM [facility] URINE SPECIMEN OBTAINED BY CLEAN CATCH PROCEDURE / Unknown 03/22/2019 12:24 PM SKETCH ARTIST us Clara CARRINGTON URINE ORDERABLES Final Resu lt [facility] [address] [place] [address], [place] [phone] * (ABNORMAL) CBC W/DIFF AUTOMATED (03/22/2019 12:24 PM SKETCH ARTIST) WBC 13.1(H) 4.5 - 11.0 x10'3/uL 03/22/2019 7:19 PM [facility] RBC 5.08 4.70 - 6.10 x10'6/uL 03/22/2019 7:19 PM [facility] HGB 14.6 14.0 - 18.0 G/DL 03/22/2019 7:19 PM [facility] HCT 44.4 43.0 - 54.0 % 03/22/2019 7:19 PM [facility] MCV 87.4 80.0 - 94.0 FL 03/22/2019 7:19 PM [facility] MCH 28.7 27.0 - 31.0 PG 03/22/2019 7:19 PM [facility] MCHC 32.9 32.0 - 36.0 G/DL 03/22/2019 7:19 PM [facility] RDW 12.6 11.5 - 14.5 % 03/22/2019 7:19 PM [facility] PLT 363 130 - 400 x10'3/uL 03/22/2019 7:19 PM [facility] MPV 12.2 9.3 - 12.2 FL 03/22/2019 7:19 PM [facility] DIFFERENTIAL TYPE AUTOMATED DIFFERENTIAL 03/22/2019 7:19 PM [facility] NEUTROPHILS % 74.1 % 03/22/2019 7:19 PM [facility] LYMPHOCYTES % 14.8 % 03/22/2019 7:19 PM [facility] MONOCYTES % 8.3 % 03/22/2019 7:19 PM [facility] EOSINOPHILS 1.6 % 03/22/2019 7:19 PM [facility] BASOPHILS 0.5 % 03/22/2019 7:19 PM [facility] IMMATURE GRANS % 0.7 % 03/22/19 20 7:19 PM SKETCH ARTIST [facility] ABS. NEUTROPHILS TOTAL 9.69(H) 1.80 - 7.70 x10'3/uL 03/22/2019 7:19 PM [facility] ABS. LYMPHOCYTES 1.93 1.00 - 4.80 x10'3/uL 03/22/2019 7:19 PM SKETCH ARTIST [facility] ABS. MONOCYTES 1.09(H) 0.30 - 0.82 x10'3/uL 03/22/2019 7:19 PM SKETCH ARTIST [facility] ABS. EOSINOPHILS 0.21 0.04 - 0.54 x10'3/uL 03/22/2019 7:19 PM [facility] ABS. BASOPHILS 0.07 0.01 - 0.08 x10'3/uL 03/22/2019 7:19 PM [facility] ABS. IMMATURE GRANULOCYTES 0.09 0.00 - 0.49 x10'3/uL 03/22/2019 7:19 PM [facility] 03/22/2019 12:2 4 PM SKETCH ARTIST Clara CARRINGTON LABORATORY Final Resul t [facility] [address] [place] [address], documented in this encounter Visit Diagnoses Diagnosis Intractable tension-type headache, unspecified chronicity pattern Dizziness Dizziness and giddiness Painful orthopaedic hardware (CMS/HCC)- Primary documented in this encounter Care Teams Laster Hand Relationship Specialty Start Date End Date Clara Stanley APNP [address] [place] [address] PCP - General NURSE PRACTITIONER 06/01/18 documented as of this encounter
--- OUTSIDE RECORDS SUMMARY | 2024-03-02 04:02 | XMS_ITS | Encounter Summary ---
Author Organization [facility] Address [address] [place] [address]. [place], [place] [address] [place] [address] Care Team Providers Care Hotel Concierge Name Role Phone Clara Stanley Primary Care Provider [phone] Dominick Mccloud MD Unavailable [phone] Encounter Details Date Type Department Care [...] st Contact Info) Description 03/28/2024 7:30 AM PREPAROLE COUNSELING AIDE Hospital Encounter [facility] [place] [address] Antwan Stone DPM [address], [place] [address] 03/28/2024 7:30 AM PREPAROLE COUNSELING AIDE Anesthesia [place] [address] Shanelle Avila, DISTRIBUTION ESTIMATOR [address] [place] [address] 03/28/2024 7:30 AM PREPAROLE COUNSELING AIDE - 03/28/2024 8:48 AM PREPAROLE COUNSELING AIDE Surgery [place] [address] Antwan Stone, DPÁngel [address], [place] [address] REMOVAL OF HARDWARE LEFT FOOT 04/05/2024 8:30 AM PREPAROLE COUNSELING AIDE Office Visit [facility] Cardiovascular-O'F allon THREE [facility], [facility] [address] [place] [address] Dominick Mccloud MD Three [facility]. [facility] [address] [place], [place] [address] Scheduled Procedures Name Priority Associated Diagnoses Date/Ti me REMOVAL PLATE SCREW OR PIN SCHED BY FAX 02/08/24 [facility] PHONE ASSESS 03/28/2024 7:30 AM PREPAROLE COUNSELING AIDE documented as of this encounter Visit Diagnoses Not on filedocumented in this encounter Care Teams Hotel Concierge Relationship Specialty Start Date End Date Clara Stanley APNP [address] [place] [address] PCP - General NURSE PRACTITIONER 06/01/18 Dominick Mccloud MD Three [facility]. [facility] [address] [place], [place] [address] [place] [employer] Feeder CARDIOVASCULAR DISEASE 03/28/19 documented as of this encounter
--- OUTSIDE RECORDS SUMMARY | 2024-03-02 04:02 | XMS_ITS | Encounter Summary ---
Author Organization [facility] Address [address] [place] [address] [address] Care Team Providers Care District Scout Executive Name Role Phone Clara Stanley Primary Care Provider [phone] Dominick Mccloud MD Unavailable [phone] Reason for Referral * Surgical (Urgent) - Closed Specialty Diagnoses / Procedures Referred By Contac t Referred To Contact SURGERY Diagnoses Left upper quadrant pain Yakov Bello MD [address] [place] [address] Phone: tel: fax: [facility] [place] [address] Phone: tel: fax: Referral ID Status Reason Start Date Expiration Date Visits Re quested Visits Authorized [id number] Closed 04/07/2019 05/07/2020 99 99 ICAL ASSESSMENT MANAGER * Imaging (Urgent) - Closed Specialty Diagnoses / Procedures Referred By Contac t Referred To Contact RADIOLOGY Diagnoses Left upper quadrant pain Procedures US ABD COMPLETE Yakov Bello MD [address] [place] [address] Phone: tel: fax: Referral ID Status Reason Start Date Expiration Date Visits Re quested Visits Authorized [id number] Closed 04/07/2019 05/08/2020 1 1 ICAL ASSESSMENT MANAGER Reason for Visit * Reason Comments Abdominal Pain left upper quadrant, consistant burning sensaton Patient was recently at hospital for back pain, he was given hydrocodone and took about 2-3 tablets and started feeling constipated Paraesthesia numbness across abdo srinivasa Encounter Details Date Type Department Care Team (Late st Contact Info) Description 04/07/2019 3:20 PM CLINICAL ASSESSMENT MANAGER Office Visit [facility] Family [facility] Internal [facility] [address] [place] [phone] Yakov Bello MD [address] [place], [place] [id number] Abdominal Pain (left upper quadrant, consistant burning [...] Comments Blood Pressure 122/68 04/07/2019 3:28 PM CLINICAL ASSESSMENT MANAGER Pulse 73 04/07/2019 3:28 PM CLINICAL ASSESSMENT MANAGER Temperature - - Respiratory Rate 16 04/07/2019 3:28 PM CLINICAL ASSESSMENT MANAGER Oxygen Saturation 97% 04/07/2019 3:28 PM CLINICAL ASSESSMENT MANAGER Inhaled Oxygen Concentration - - Weight 161.5 kg (356 lb) 04/07/2019 3:28 PM CLINICAL ASSESSMENT MANAGER Height 190.5 cm (6' 3 ) 04/07/2019 3:28 PM CLINICAL ASSESSMENT MANAGER Body Mass Index 44.5 04/07/2019 3:28 PM CLINICAL ASSESSMENT MANAGER documented in this encounter Progress Notes * [...] of his pain. He is not taking [id number] medications for his pain at this time [...] file Gets together: Not on file Attends yazidi service: Not on file Active member of [...] an admission. PCP: YAKOV BELLO MD 04/11/2019 ICAL ASSESSMENT MANAGER documented in this encounter Plan of Treatment Upcoming Encounters Date Type Department Care Team (Late st Contact Info) Description 03/28/2024 7:30 AM CLINICAL ASSESSMENT MANAGER Hospital Encounter [facility] [place] [address] Antwan Stone, DPM [address], [place] [address] 03/28/2024 7:30 AM CLINICAL ASSESSMENT MANAGER Anesthesia [place] [address] Shanelle Avila, RAEANN [address] [place] [address] 03/28/2024 7:30 AM CLINICAL ASSESSMENT MANAGER - 03/28/2024 8:48 AM CLINICAL ASSESSMENT MANAGER Surgery [place] [address] Antwan Stone, DIEGO [address] [place], [place] [address] REMOVAL OF HARDWARE LEFT FOOT 04/05/2024 8:30 AM CLINICAL ASSESSMENT MANAGER Office Visit [facility] Cardiovascular-O'F allon THREE [facility], [facility] [address] [place] [address] Dominick Mccloud MD Three [facility]. [facility] [address] [place] [address] Scheduled Procedures Name Priority Associated Diagnoses Date/Ti me REMOVAL PLATE SCREW OR PIN SCHED BY FAX 02/08/24 [facility] PHONE ASSESS 03/28/2024 7:30 AM CLINICAL ASSESSMENT MANAGER Scheduled Referrals Name Type Priority Associated Diagnoses Orde r Schedule Ambulatory referral to General Surgery (OTHER) Referral Routine Left upper quadrant pain Ordered: 04/07/2019 documented as of this encounter Results * US ABD COMPLETE (04/09/2019 2:40 PM CLINICAL ASSESSMENT MANAGER) Anatomical Region Laterality Modality Abdomen Ultrasound 04/09/2019 5:00 PM CLINICAL ASSESSMENT MANAGER Impressions 04/09/2019 5:03 PM CLINICAL ASSESSMENT MANAGER IMPRESSION: No acute abnormality identified. Interpreted By: Gordon Tolentino MD, 04/09/2019 5:00 PM Narrative 04/09/2019 5:03 PM CLINICAL ASSESSMENT MANAGER EXAMINATION: US ABD COMPLETE HISTORY: Upper quadrant [...] (ABNORMAL) COMPREHENSIVE METABOLIC PANEL (04/08/2019 11:51 AM [facility]) [facility] GLUCOSE 90 70 - 99 MG/DL 04/08/2019 8:38 PM [facility] BUN 12 7 - 18 MG/DL 04/08/2019 8:38 PM [facility] CREATININE S/P/B 0.82 0.7 - 1.3 MG/DL 04/08/2019 8:38 PM [facility] SODIUM S/P/B 134(L) 136 - 145 MMOL/L 04/08/2019 8:38 PM [facility] POTASSIUM S/P/B 4.1 3.5 - 5.1 MMOL/L 04/08/2019 8:38 PM [facility] CHLORIDE S/P/B 105 100 - 108 MMOL/L 04/08/2019 8:38 PM [facility] CO2 21.4 21 - 32 MMOL/L 04/08/2019 8:38 PM [facility] CALCIUM S/P/B 9.5 8.5 - 10.1 MG/DL 04/08/2019 8:38 PM [facility] BILIRUBIN TOTAL S/P/B 0.3 0.2 - 1.2 MG/DL 04/08/2019 8:38 PM [facility] TOTAL PROTEIN S/P/B 7.6 6.4 - 8.2 G/DL 04/08/2019 8:38 PM [facility] ALBUMIN S/P/B 4.0 3.4 - 5.0 G/DL 04/08/2019 8:38 PM [facility] AST 20 15 - 37 U/L 04/08/2019 8:38 PM [facility] ALT 31 16 - 60 U/L 04/08/2019 8:38 PM [facility] ALKALINE PHOSPHATASE S/P/B 79 50 - 136 U/L 04/08/2019 8:38 PM CLINICAL ASSESSMENT MANAGER [facility] ANION GAP 7.6 5 - 15 MMOL/L 04/08/2019 8:38 PM [facility] BUN CREATININE RATIO 14.6 6 - 26 04/08/2019 8:38 PM [facility] A/G RATIO 1.1 1.0 - 2.0 RATIO 04/08/2019 8:38 PM [facility] EGFR NON-AFR. AMER. >90 >90 ML/MIN/1.7 3 M2 04/08/2019 8:38 PM [facility] EGFR AFR. AMER. >90 >90 ML/MIN/1.7 3 M2 04/08/2019 8:38 PM [facility] Comment: NOTE: eGFR is not calculated for patients <18 years of age. This is an estimated GFR (CKD EPI) and should not be used for calculating drug doses. 04/08/2019 11:5 1 AM CLINICAL ASSESSMENT MANAGER us Yakov Bello MD LABORATORY Final Result [facility] [address] [place], [place] [address], [place] [phone] * (ABNORMAL) C-REACTIVE PROTEIN (04/08/2019 11:51 AM CLINICAL ASSESSMENT MANAGER) C-REACTIVE PROTEIN 0.31(H) <0.29 mg/dL 04/08/2019 8:38 PM CLINICAL ASSESSMENT MANAGER [facility] 04/08/2019 11:5 1 AM CLINICAL ASSESSMENT MANAGER us Yakov Bello MD LABORATORY Final Result [facility] [address] [place] [address], [place] [phone] * LIPASE (04/08/2019 11:51 AM CLINICAL ASSESSMENT MANAGER) LIPASE 120 73 - 393 UNITS/L 04/08/2019 8:38 PM CLINICAL ASSESSMENT MANAGER [facility] 04/08/2019 11:5 1 AM CLINICAL ASSESSMENT MANAGER us Yakov Bello MD LABORATORY Final Result [facility] [address] [place] [address], [place] [phone] * AMYLASE (04/08/2019 11:51 AM CLINICAL ASSESSMENT MANAGER) AMYLASE S/P/B 28 25 - 115 UNITS/L 04/08/2019 8:38 PM CLINICAL ASSESSMENT MANAGER [facility] 04/08/2019 11:5 1 AM CLINICAL ASSESSMENT MANAGER us Yakov Bello MD LABORATORY Final Result [facility] [address] [place] [address], [place] [phone] * (ABNORMAL) CBC W/DIFF AUTOMATED (04/08/2019 11:51 AM CLINICAL ASSESSMENT MANAGER) WBC 10.2 4.5 - 11.0 x10'3/uL 04/08/2019 8:22 PM CLINICAL ASSESSMENT MANAGER [facility] RBC 5.05 4.70 - 6.10 x10'6/uL 04/08/2019 8:22 PM CLINICAL ASSESSMENT MANAGER [facility] HGB 14.1 14.0 - 18.0 G/DL 04/08/2019 8:22 PM CLINICAL ASSESSMENT MANAGER [facility] HCT 43.5 43.0 - 54.0 % 04/08/2019 8:22 PM [facility] MCV 86.1 80.0 - 94.0 FL 04/08/2019 8:22 PM [facility] MCH 27.9 27.0 - 31.0 PG 04/08/2019 8:22 PM [facility] MCHC 32.4 32.0 - 36.0 G/DL 04/08/2019 8:22 PM [facility] RDW 13.2 11.5 - 14.5 % 04/08/2019 8:22 PM [facility] PLT 298 130 - 400 x10'3/uL 04/08/2019 8:22 PM [facility] MPV 11.8 9.3 - 12.2 FL 04/08/2019 8:22 PM [facility] DIFFERENTIAL TYPE AUTOMATED DIFFERENTIAL 04/08/2019 8:22 PM [facility] NEUTROPHILS % 72.9 % 04/08/2019 8:22 PM [facility] LYMPHOCYTES % 14.8 % 04/08/2019 8:22 PM [facility] MONOCYTES % 9.0 % 04/08/2019 8:22 PM [facility] EOSINOPHILS 2.4 % 04/08/2019 8:22 PM [facility] BASOPHILS 0.5 % 04/08/2019 8:22 PM [facility] IMMATURE GRANS % 0.4 % 04/08/19 20 8:22 PM [facility] ABS. NEUTROPHILS TOTAL 7.41 1.80 - 7.70 x10'3/uL 04/08/2019 8:22 PM [facility] ABS. LYMPHOCYTES 1.50 1.00 - 4.80 x10'3/uL 04/08/2019 8:22 PM CLINICAL ASSESSMENT MANAGER [facility] ABS. MONOCYTES 0.91(H) 0.30 - 0.82 x10'3/uL 04/08/2019 8:22 PM CLINICAL ASSESSMENT MANAGER [facility] ABS. EOSINOPHILS 0.24 0.04 - 0.54 x10'3/uL 04/08/2019 8:22 PM CLINICAL ASSESSMENT MANAGER [facility] ABS. BASOPHILS 0.05 0.01 - 0.08 x10'3/uL 04/08/2019 8:22 PM CLINICAL ASSESSMENT MANAGER [facility] ABS. IMMATURE GRANULOCYTES 0.04 0.00 - 0.49 x10'3/uL 04/08/2019 8:22 PM [facility] 04/08/2019 11:5 1 AM CLINICAL ASSESSMENT MANAGER Yakov Bello MD LABORATORY Final Result [facility] [address] [place] [address], documented in this encounter Visit Diagnoses Diagnosis Left upper quadrant pain- Primary Abdominal pain, left upper quadrant Left upper quadrant pain Abdominal pain, left upper quadrant Painful orthopaedic hardware (CMS/HCC)- Primary documented in this encounter Care Teams District Scout Executive Relationship Specialty Start Date End Date Clara Stanley APNP [address] [place] [address] PCP - General NURSE PRACTITIONER 06/01/18 Dominick Mccloud MD Three [facility] [address] [place] [address] [employer] Applications Specialist CARDIOVASCULAR DISEASE 03/28/19 documented as of this encounter
--- OUTSIDE RECORDS SUMMARY | 2024-03-02 04:02 | XMS_ITS | Encounter Summary ---
Author Organization [facility] Address [address] [place] [address]. [place], [place] [address] [place] [address] Care Team Providers Care Drilling Contractor Name Role Phone Clara Stanley Primary Care Provider [phone] Dominick Mccloud MD Unavailable [phone] Encounter Details Date Type Department Care Team (Latest Contact Info) Description 04/04/2019 2:22 PM MANAGER PEDIATRIC - 04/04/2019 11:59 PM [facility] Hospital Encounter [facility] [place] [address] Clara Stanley APNP [facility] [place], [place] [id number] Discharge Disposition: Home or Self Care (Routine [...] 5:57 PM CST Results discussed with pt/ GER PEDIATRIC documented in this encounter Plan of Treatment Upcoming Encounters Date Type Department Care Team (Late st Contact Info) Description 03/28/2024 7:30 AM MANAGER PEDIATRIC Hospital Encounter [facility] [place] [address] Antwan Stone DPM [address], [place] [address] 03/28/2024 7:30 AM MANAGER PEDIATRIC Anesthesia Event [facility] [address] Shanelle Avila, MANAGER UNIVERSITY [address] [place], [place] [address] 03/28/2024 7:30 AM MANAGER PEDIATRIC - 03/28/2024 8:48 AM MANAGER PEDIATRIC Surgery [facility] [address] Antwan Stone, DPÁngel [address], [place], [place] [address] REMOVAL OF HARDWARE LEFT FOOT 04/05/2024 8:30 AM MANAGER PEDIATRIC Office Visit Darren Chaudhari-O'F allon THREE [facility], [facility] [address] [place], [place] [address] Dominick Mccloud MD Three [facility]. [facility] [address] [place], [place] [address] Scheduled Procedures Name Priority Associated Diagnoses Date/Ti me REMOVAL PLATE SCREW OR PIN SCHED BY FAX 02/08/24 [facility] PHONE ASSESS 03/28/2024 7:30 AM MANAGER PEDIATRIC documented as of this encounter Procedures Procedure Name Priority Date/Time Associated Diagnosis Comments COMPREHENSIVE METABOLIC PANEL Routine 04/04/2019 2:38 PM MANAGER PEDIATRIC Fatigue, unspecified type CBC W/DIFF AUTOMATED Routine 04/04/2019 2:38 PM MANAGER PEDIATRIC Fatigue, unspecified type documented in this encounter Results * (ABNORMAL) COMPREHENSIVE METABOLIC PANEL (04/04/2019 2:38 PM MANAGER PEDIATRIC) [facility] GLUCOSE 87 70 - 99 MG/DL 04/04/2019 4:03 PM [facility] BUN 14 7 - 18 MG/DL 04/04/2019 4:03 PM [facility] CREATININE S/P/B 0.83 0.7 - 1.3 MG/DL 04/04/2019 4:03 PM [facility] SODIUM S/P/B 132(L) 136 - 145 MMOL/L 04/04/2019 4:03 PM [facility] POTASSIUM S/P/B 3.7 3.5 - 5.1 MMOL/L 04/04/2019 4:03 PM [facility] CHLORIDE S/P/B 103 100 - 108 MMOL/L 04/04/2019 4:03 PM [facility] CO2 22.8 21 - 32 MMOL/L 04/04/2019 4:03 PM [facility] CALCIUM S/P/B 8.9 8.5 - 10.1 MG/DL 04/04/2019 4:03 PM [facility] BILIRUBIN TOTAL S/P/B 0.3 0.2 - 1.2 MG/DL 04/04/2019 4:03 PM [facility] TOTAL PROTEIN S/P/B 8.0 6.4 - 8.2 G/DL 04/04/2019 4:03 PM [facility] ALBUMIN S/P/B 4.0 3.4 - 5.0 G/DL 04/04/2019 4:03 PM [facility] AST 11(L) 15 - 37 U/L 04/04/2019 4:03 PM [facility] ALT 28 16 - 60 U/L 04/04/2019 4:03 PM [facility] ALKALINE PHOSPHATASE S/P/B 83 50 - 136 U/L 04/04/2019 4:03 PM [facility] ANION GAP 6.2 5 - 15 MMOL/L 04/04/2019 4:03 PM [facility] BUN CREATININE RATIO 16.8 6 - 26 04/04/2019 4:03 PM [facility] A/G RATIO 1.0 1.0 - 2.0 RATIO 04/04/2019 4:03 PM [facility] EGFR NON-AFR. AMER. >90 >90 ML/MIN/1.7 3 M2 04/04/2019 4:03 PM [facility] EGFR AFR. AMER. >90 >90 ML/MIN/1.7 3 M2 04/04/2019 4:03 PM [facility] Comment: NOTE: eGFR is not calculated for patients <18 years of age. This is an estimated GFR (CKD EPI) and should not be used for calculating drug doses. 04/04/2019 2:38 PM MANAGER PEDIATRIC us Clara [facility] Final Resul t [facility] [address] [place] [address], [place] [phone] * (ABNORMAL) CBC W/DIFF AUTOMATED (04/04/2019 2:38 PM MANAGER PEDIATRIC) WBC 12.5(H) 4.5 - 11.0 x10'3/uL 04/04/2019 3:30 PM MANAGER PEDIATRIC [facility] RBC 4.89 4.70 - 6.10 x10'6/uL 04/04/2019 3:30 PM [facility] HGB 13.9(L) 14.0 - 18.0 G/DL 04/04/2019 3:30 PM MANAGER PEDIATRIC [facility] HCT 41.7(L) 43.0 - 54.0 % 04/04/2019 3:30 PM [facility] MCV 85.3 80.0 - 94.0 FL 04/04/2019 3:30 PM [facility] MCH 28.4 27.0 - 31.0 PG 04/04/2019 3:30 PM [facility] MCHC 33.3 32.0 - 36.0 G/DL 04/04/2019 3:30 PM [facility] RDW 13.0 11.5 - 14.5 % 04/04/2019 3:30 PM [facility] PLT 322 130 - 400 x10'3/uL 04/04/2019 3:30 PM [facility] MPV 11.3 9.3 - 12.2 FL 04/04/2019 3:30 PM [facility] DIFFERENTIAL TYPE AUTOMATED DIFFERENTIAL 04/04/2019 3:30 PM [facility] NEUTROPHILS % 76.8 % 04/04/2019 3:30 PM [facility] LYMPHOCYTES % 12.4 % 04/04/2019 3:30 PM [facility] MONOCYTES % 7.6 % 04/04/2019 3:30 PM [facility] EOSINOPHILS 1.6 % 04/04/2019 3:30 PM [facility] BASOPHILS 0.6 % 04/04/2019 3:30 PM [facility] IMMATURE GRANS % 1.0 % 04/04/19 3:30 PM [facility] ABS. NEUTROPHILS TOTAL 9.54(H) 1.80 - 7.70 x10'3/uL 04/04/2019 3:30 PM [facility] ABS. LYMPHOCYTES 1.55 1.00 - 4.80 x10'3/uL 04/04/2019 3:30 PM MANAGER PEDIATRIC [facility] ABS. MONOCYTES 0.95(H) 0.30 - 0.82 x10'3/uL 04/04/2019 3:30 PM MANAGER PEDIATRIC [facility] ABS. EOSINOPHILS 0.20 0.04 - 0.54 x10'3/uL 04/04/2019 3:30 PM MANAGER PEDIATRIC [facility] ABS. BASOPHILS 0.08 0.01 - 0.08 x10'3/uL 04/04/2019 3:30 PM MANAGER PEDIATRIC [facility] ABS. IMMATURE GRANULOCYTES 0.13 0.00 - 0.49 x10'3/uL 04/04/2019 3:30 PM MANAGER PEDIATRIC [facility] 04/04/2019 2:38 PM MANAGER PEDIATRIC Clara CARRINGTON [facility] Final Resul t [facility] [address] [place] [address], documented in this encounter Visit Diagnoses Diagnosis Fatigue, unspecified type Painful orthopaedic hardware (CMS/HCC)- Primary documented in this encounter Care Teams Drilling Contractor Relationship Specialty Start Date End Date Clara Stanley APNP [address] [place] [address] PCP - General NURSE PRACTITIONER 06/01/18 Dominick Mccloud MD Three [facility]. [facility] [address] [place] [address] [place] Rn Acls CARDIOVASCULAR DISEASE 03/28/19 documented as of this encounter
--- OUTSIDE RECORDS SUMMARY | 2024-03-02 04:02 | XMS_ITS | Encounter Summary ---
Author Organization [facility] Address [address] [place] [address]. [place], [place] [address] [place] [address] Care Team Providers Care Singing Telegram Performer Name Role Phone Clara Stanley Primary Care Provider [phone] Dominick Mccloud MD Unavailable [phone] Reason for Referral * Imaging (Emergency) - Closed Specialty Diagnoses / Procedures Referred By Ismaelac t Referred To Contact RADIOLOGY Diagnoses Left upper quadrant pain Procedures CT ABD+PEL W CON Clara Stanley APNP [address] [place] [address] Phone: tel: fax: Referral ID Status Reason Start Date Expiration Date Visits Re quested Visits Authorized [id number] Closed 04/04/2019 07/03/2019 1 1 CTION CONTROL SPECIALIST Reason for Visit * Imaging (Emergency) - Closed Specialty Diagnoses / Procedures Referred By Erik [email or web address] Referred To Contact RADIOLOGY Diagnoses Left upper quadrant pain Procedures CT ABD+PEL W CON Clara Stanley APNP [address] [place] [address] Phone: tel: fax: Referral ID Status Reason Start Date Expiration Date Visits Re quested Visits Authorized [id number] Closed 04/04/2019 07/03/2019 1 1 Encounter Details Date Type Department Care Team (Latest Contact Info) Description 04/04/2019 2:22 PM INFECTION CONTROL SPECIALIST - 04/04/2019 11:59 PM INFECTION CONTROL SPECIALIST Hospital Encounter [facility] [address] [facility] [place] [address] Clara Stanley, ZEB [address] [place] [address] Discharge Disposition: Home or Self Care (Routine [...] pt and if feeling worse---go to ER [facility]. CTION CONTROL SPECIALIST documented in this encounter Plan of Treatment Upcoming Encounters Date Type Department Care Team (Late st Contact Info) Description 03/28/2024 7:30 AM INFECTION CONTROL SPECIALIST Hospital Encounter [facility] [place] [address] Antwan Stone DPM [address], [place] [address] 03/28/2024 7:30 AM INFECTION CONTROL SPECIALIST Anesthesia Event [facility] [place], [place] [address] Shanelle Avila, PLASTIC PROCESS TECHNICIAN [address] [place], [place] [address] 03/28/2024 7:30 AM INFECTION CONTROL SPECIALIST - 03/28/2024 8:48 AM INFECTION CONTROL SPECIALIST Surgery [place] [address] Antwan Stone, DPM [address], [address] [place], [place] [address] REMOVAL OF HARDWARE LEFT FOOT 04/05/2024 8:30 AM INFECTION CONTROL SPECIALIST Office Visit Darren Chaudhari-O'F allon THREE [facility], [facility] [address] [place], [place] [address] Dominick Mccloud MD Three [facility]. [facility] [address] [place], [place] [id number] Scheduled Procedures Name Priority Associated Diagnoses Date/Ti me REMOVAL PLATE SCREW OR PIN SCHED BY FAX 02/08/24 S PHONE ASSESS 03/28/2024 7:30 AM INFECTION CONTROL SPECIALIST documented as of this encounter Procedures Procedure Name Priority Date/Time Associated Diagnosis Comments CT ABD+PEL W CON STAT 04/04/2019 3:33 PM INFECTION CONTROL SPECIALIST Left upper quadrant pain documented in this encounter Results * CT ABD+PEL W CON (04/04/2019 3:33 PM INFECTION CONTROL SPECIALIST) Anatomical Region Laterality Modality Abdomen Computed Tomogra phy 04/04/2019 3:58 PM INFECTION CONTROL SPECIALIST Impressions 04/04/2019 4:03 PM INFECTION CONTROL SPECIALIST IMPRESSION: 1. ??Suspicious 1.7 cm right lower [...] 04/04/2019 3:58 PM Narrative 04/04/2019 4:03 PM INFECTION CONTROL SPECIALIST Examination: CT ABD+PEL W CON Clinical history: [...] 04/04/19 at 1534 Given 04/04/2019 3:34 PM INFECTION CONTROL SPECIALIST 100 mLs documented in this encounter Care Teams Singing Telegram Performer Relationship Specialty Start Date End Date Clara Stanley APNP [address] [place] [address] PCP - General NURSE PRACTITIONER 06/01/18 Dominick Mccloud MD [facility]. [facility] [address] [place] [address] [place] Horizontal Boring Mill Operator CARDIOVASCULAR DISEASE 03/28/19 documented as of this encounter
--- OUTSIDE RECORDS SUMMARY | 2024-03-02 04:03 | XMS_ITS | Encounter Summary ---
Author Organization [facility] Address [address] [place] [address]. [place], [place] [address] [place] [address] Care Team Providers Care Spike Machine Heater Name Role Phone Jerry Fatima MD Primary Care Provider Yan alvarado Encounter Details Date Type Department Care Team (Latest Contact Info) Description 02/10/2014 Abstract [facility] Jaskaran Lubin MD Social History [...] Comments Blood Pressure 122/78 02/10/2014 8:57 AM RECEIVER Pulse 70 02/10/2014 8:57 AM RECEIVER Temperature - - Respiratory Rate - - Oxygen Saturation - - Inhaled Oxygen Concentration - - Weight 170.3 kg (375 lb 8 oz) 02/10/2014 8:57 AM RECEIVER Height 190.5 cm (6' 3 ) 02/10/2014 8:57 AM RECEIVER Body Mass Index 46.93 02/10/2014 8:57 AM RECEIVER documented in this encounter Progress Notes * [...] skin dermatitis;PADMINI = N; Verified Transmission to [employer]; Last Updated By: Kavitha Brown; 01/05/2014 11:29:42 AM 2. ZyrTEC Allergy 10 MG Oral Tablet; Therapy: (Recorded:[id number]) to Recorded Dispense: 0 Days ; #: [...] Acid Status: Active Requested for: 10Feb2014 [facility] Due: [id number]; Last Updated By: Clara Nathan; 02/10/2014 9:19:22 AM; Ordered; For: Pain of great toe, right; Ordered By: Jaskaran Lubin 3. XR FOOT 3+ VIEW RT ( Routine ) Status: Active Requested for: 10Feb2014 Perform: Other Radiology Due: [id number]; Ordered; For: Pain of great toe, right; Ordered By: Jaskaran Lubin vicodin prn pain rest, no walking uric acid will wait till thursday for x ray, if pain and swelling don?t improve will get x ray Signatures Electronically signed by : Jaskaran Lubin M.D.; Feb 10 2014 9:22AM RECEIVER (Author) documented in this encounter Plan of Treatment Upcoming Encounters Date Type Department Care Team (Late st Contact Info) Description 03/28/2024 7:30 AM RECEIVER Hospital Encounter [facility] [place] [place] [address] Antwan Stone, DIEGO [address], [place] [address] 03/28/2024 7:30 AM RECEIVER Anesthesia Event [place] [address] Shanelle Avila, DIAMOND GRINDER [address] [place] [address] 03/28/2024 7:30 AM RECEIVER - 03/28/2024 8:48 AM RECEIVER [place] [address] Antwan Stone, DIEGO [address] [place], [place] [address] REMOVAL OF HARDWARE LEFT FOOT 04/05/2024 8:30 AM RECEIVER Office Visit [place] Fara-Omar'Marbella allon THREE [facility], [facility], [place] [address] [place] [address] Dominick Mccloud MD Three [facility]. [facility], [place] [address] [place] [address] Scheduled Procedures Name Priority Associated Diagnoses Date/Ti me REMOVAL PLATE SCREW OR PIN SCHED BY FAX 02/08/24 [facility] PHONE ASSESS 03/28/2024 7:30 AM RECEIVER documented as of this encounter Procedures Procedure Name Priority Date/Time Associated Diagnosis Comments URIC ACID BLOOD Routine 02/10/2014 9:44 AM RECEIVER documented in this encounter Results * URIC ACID BLOOD (02/10/2014 9:44 AM RECEIVER) URIC ACID 6.4 3.4 - 7.0 mg/dL [facility] TO EPIC CONVERSION 02/10/2014 9:44 AM RECEIVER 02/10/2014 9:44 AM RECEIVER Narrative [facility] TO EPIC CONVERSION - 02/10/2014 3:10 PM RECEIVER Result Communication: Call patient with results us Jaskaran Lubin MD LABORATORY Final Resul t [facility] TO EPIC CONVERSION documented in this encounter Visit Diagnoses Not on filedocumented in this encounter Care Teams Spike Machine Heater Relationship Specialty Start Date End Date Jerry Fatima MD PCP - General 01/11/15 05/31/18 documented as of this encounter
--- OUTSIDE RECORDS SUMMARY | 2024-03-02 04:03 | XMS_ITS | Encounter Summary ---
Author Organization [facility] Address [address] [place] [address]. [place], [place] [address] [place] [address] Care Team Providers Care Senior Director Finance Name Role Phone Clara Stanley Ricardo CARRINGTON Primary Care Provider [phone] Reason for Visit * Reason Comments Lab [...] st Contact Info) Description 03/28/2024 7:30 AM TRANSFER AND PUMPHOUSE OPERATOR Hospital Encounter [facility] [place] [address] Antwan Stone DPM [address], [place] [address] 03/28/2024 7:30 AM TRANSFER AND PUMPHOUSE OPERATOR Anesthesia Event [place] [address] Shanelle Avila, CERTIFIED MORTICIAN [address] [place] [address] 03/28/2024 7:30 AM TRANSFER AND PUMPHOUSE OPERATOR - 03/28/2024 8:48 AM TRANSFER AND PUMPHOUSE OPERATOR Surgery [facility] [address] Antwan Stone, DPM [address] [place] [address] REMOVAL OF HARDWARE LEFT FOOT 04/05/2024 8:30 AM TRANSFER AND PUMPHOUSE OPERATOR Office Visit Darren Chaudhari-O'F allon THREE [facility], [facility] [address] [place], [place] [address] Dominick Mccloud MD Three [facility]. [facility] [address] [place] [address] Scheduled Procedures Name Priority Associated Diagnoses Date/Ti me REMOVAL PLATE SCREW OR PIN SCHED BY FAX 02/08/24 [facility] PHONE ASSESS 03/28/2024 7:30 AM TRANSFER AND PUMPHOUSE OPERATOR documented as of this encounter Procedures Procedure Name Priority Date/Time Associated Diagnosis Comments OUTSIDE LAB (SCAN ORDER) Routine 07/06/2018 documented in this encounter Results * OUTSIDE LAB (07/06/2018) 07/06/2018 us Documents Scanned SCANNING Final Result documented in this encounter Visit Diagnoses Not on filedocumented in this encounter Care Teams Senior Director Finance Relationship Specialty Start Date End Date Clara Stanley APNP [address] [place] [address] PCP - General NURSE PRACTITIONER 06/01/18 documented as of this encounter
--- OUTSIDE RECORDS SUMMARY | 2024-03-02 04:03 | XMS_ITS | Encounter Summary ---
Author Organization [facility] Address [address] [place] [address]. [place], [place] [address] [place] [address] Care Team Providers Care Kiln Transfer Operator Name Role Phone Clara Stanley Primary Care Provider [phone] [phone] Encounter Details Date Type Department Care Team (Late st Contact Info) Description 06/08/2018 9:20 AM CDT Laboratory Only [facility] Medical Group Family & Internal Medicine [address] [address] Social History Tobacco Use Types [...] AM [facility] Hospital Encounter [facility] [place] [address] Antwan Stone, DIEGO [address], [place] [address] 03/28/2024 7:30 AM LOCKSTITCH ZIPPER SETTER Anesthesia Event [facility] [place] [address] Shanelle Avila, CARDBOARD INSERTER 1 [place] [address] 03/28/2024 7:30 AM LOCKSTITCH ZIPPER SETTER - 03/28/2024 8:48 AM LOCKSTITCH ZIPPER SETTER [place] [address] Antwan Stone, DPM [address], [place] [address] REMOVAL OF HARDWARE LEFT FOOT 04/05/2024 8:30 AM LOCKSTITCH ZIPPER SETTER Office Visit Darren Chaudhari-O'F allon THREE [facility], [address] [place] [address] Dominick Mccloud MD Three [facility]. [facility] [address] [place], [place] [address] Scheduled Orders Name Type Priority Associated Diagnoses Orde r Schedule VENIPUNC ARM DRAW Procedures Routine Mixed hyperlipidemia Encounter for preventive health examination Morbid obesity ([facility]) Screening for endocrine disorder Prostate cancer screening Ordered: 06/08/2018 Scheduled Procedures Name Priority Associated Diagnoses Date/Ti me REMOVAL PLATE SCREW OR PIN SCHED BY FAX 02/08/24 [facility] PHONE ASSESS 03/28/2024 7:30 AM LOCKSTITCH ZIPPER SETTER documented as of this encounter Results * PSA, TOTAL (06/08/2018 10:57 AM CDT) PSA 1.23 <4.00 NG/ML 06/08/2018 8:09 PM CDT [facility] Comment: Test was performed using the Siemens method. ??Results obtained with other assay methods or kits cannot be used interchangeably with results obtained by the Siemens method. 06/08/2018 10:5 7 AM CDT Clara Ricardo Lizeth [facility] Final Resul t Performing Organization Address City/[facility] de Phone Number [facility] [address] [place] [address], [place] [phone] * URIC ACID BLOOD (06/08/2018 10:57 AM CDT) URIC ACID 6.0 3.5 - 7.2 MG/DL 06/08/2018 8:07 PM CDT [facility] 06/08/2018 10:5 7 AM CDT Clara H Lizeth [facility] Final Resul t Performing Organization Address [facility] de Phone Number [facility] [address] [place] [address], [place] [phone] * TSH W/REFLEX (06/08/2018 10:57 AM CDT) TSH 2.620 0.358 - 3.74 uIU/ML 06/08/2018 8:07 PM CDT [facility] Comment: HIGH DOSES OF BIOTIN MAY INTERFERE WITH THIS TEST RESULT. CORRELATION TO CLINICAL HISTORY AND PRESENTATION RECOMMENDED. FREE T4 NOT INDICATED 06/08/2018 10:5 7 AM CDT Clara Ricardo Lizeth [facility] Final Resul t Performing Organization Address City/[facility] de Phone Number [facility] [address] [place] [address], [place] [phone] * (ABNORMAL) LIPID PANEL (06/08/2018 10:57 AM CDT) CHOLESTEROL 205(H) <200 MG/DL 06/08/2018 8:07 PM [facility] TRIGLYCERIDES 115 <150 MG/DL 06/08/2018 8:07 PM [facility] HDL 47 >40.0 MG/DL 06/08/2018 8:07 PM [facility] LDL (CALCULATED) 135(H) <100 MG/DL 06/08/2018 8:07 PM [facility] NON HDL CHOLESTEROL 158(H) <130 MG/DL 06/08/2018 8:07 [facility] CHOL/HDL RATIO 4.4 0.0 - 4.5 06/08/2018 8:07 [facility] VLDL CALCULATION 23 5 - 55 MG/DL 06/08/2018 8:07 [facility] LIPID INTERPRETATION 06/08/2018 8:07 [facility] Comment: NIH CONCENSUS REPORT RECOMMENDATIONS: ?ADULT [...] 06/08/2018 10:5 7 AM CDT us [facility] Final Resul t [facility] [address] [place] [address], * (ABNORMAL) COMPREHENSIVE METABOLIC PANEL (06/08/2018 10:57 AM CDT) GLUCOSE 100(H) 70 - 99 MG/DL 06/08/2018 8:07 PM CDT [facility] BUN 10 7 - 18 MG/DL 06/08/2018 8:07 PM CDT [facility] CREATININE S/P/B 0.76 0.7 - 1.3 MG/DL 06/08/2018 8:07 PM CDT [facility] SODIUM S/P/B 139 136 - 145 MMOL/L 06/08/2018 8:07 PM CDT [facility] POTASSIUM S/P/B 4.5 3.5 - 5.1 MMOL/L 06/08/2018 8:07 PM CDT [facility] CHLORIDE S/P/B 108 100 - 108 MMOL/L 06/08/2018 8:07 PM CDT [facility] CO2 23.8 21 - 32 MMOL/L 06/08/2018 8:07 PM T [facility] CALCIUM S/P/B 9.3 8.5 - 10.1 MG/DL 06/08/2018 8:07 PM T [facility] BILIRUBIN TOTAL S/P/B 0.4 0.2 - 1.2 MG/DL 06/08/2018 8:07 PM T [facility] TOTAL PROTEIN S/P/B 7.8 6.4 - 8.2 G/DL 06/08/2018 8:07 PM T [facility] ALBUMIN S/P/B 4.1 3.4 - 5.0 G/DL 06/08/2018 8:07 PM CDT [facility] AST 19 15 - 37 U/L 06/08/2018 8:07 PM T [facility] ALT 27 16 - 60 U/L 06/08/2018 8:07 PM T [facility] ALKALINE PHOSPHATASE S/P/B 102 50 - 136 U/L 06/08/2018 8:07 PM T [facility] ANION GAP 11.7 8 - 20 MMOL/L 06/08/2018 8:07 PM T [facility] BUN CREATININE RATIO 13.2 6 - 06/08/2018 8:07 PM T [facility] A/G RATIO 1.1 1.0 - 2.0 RATIO 06/08/2018 8:07 PM T [facility] EGFR NON-AFR. AMER. >90 >90 ML/MIN/1.7 3 M2 06/08/2018 8:07 PM T [facility] EGFR AFR. AMER. >90 >90 ML/MIN/1.7 3 M2 06/08/2018 8:07 PM CDT [facility] Comment: NOTE: eGFR is not calculated for patients <18 years of age. This is an estimated GFR (CKD EPI) and should not be used for calculating drug doses. 06/08/2018 10:5 7 AM CDT Clara [facility] Final Resul t [facility] [address] [place] [address], [place] [phone] * (ABNORMAL) CBC W/DIFF AUTOMATED (06/08/2018 10:57 AM CDT) WBC 8.2 4.5 - 11.0 x10'3/uL 06/08/2018 7:43 PM CDT [facility] RBC 5.04 4.70 - 6.10 x10'6/uL 06/08/2018 7:43 PM CDT [facility] HGB 14.7 14.0 - 18.0 G/DL 06/08/2018 7:43 PM CDT [facility] HCT 45.1 43.0 - 54.0 % 06/08/2018 7:43 PM CDT [facility] MCV 89.5 80.0 - 94.0 FL 06/08/2018 7:43 PM CDT [facility] MCH 29.2 27.0 - 31.0 PG 06/08/2018 7:43 PM CDT [facility] MCHC 32.6 32.0 - 36.0 G/DL 06/08/2018 7:43 PM CDT [facility] RDW 13.4 11.5 - 14.5 % 06/08/2018 7:43 PM CDT [facility] PLT 250 130 - 400 x10'3/uL 06/08/2018 7:43 PM CDT [facility] MPV 12.7(H) 9.3 - 12.2 FL 06/08/2018 7:43 PM CDT [facility] DIFFERENTIAL TYPE AUTOMATED DIFFERENTIAL 06/08/2018 7:43 PM CDT [facility] NEUTROPHILS % 70.2 % 06/08/2018 7:43 PM CDT [facility] LYMPHOCYTES % 13.8 % 06/08/2018 7:43 PM CDT [facility] MONOCYTES % 9.4 % 06/08/2018 7:43 PM CDT [facility] EOSINOPHILS 5.5 % 06/08/2018 7:43 PM CDT [facility] BASOPHILS 0.7 % 06/08/2018 7:43 PM CDT [facility] IMMATURE GRANS % 0.4(H) 0 % 06/09/19 19 7:43 PM CDT [facility] ABS. NEUTROPHILS TOTAL 5.74 1.80 - 7.70 x10'3/uL 06/08/2018 7:43 PM CDT [facility] ABS. LYMPHOCYTES 1.13 1.00 - 4.80 x10'3/uL 06/08/2018 7:43 PM CDT [facility] ABS. MONOCYTES 0.77 0.30 - 0.82 x10'3/uL 06/08/2018 7:43 PM CDT [facility] ABS. EOSINOPHILS 0.45 0.04 - 0.54 x10'3/uL 06/08/2018 7:43 PM CDT [facility] ABS. BASOPHILS 0.06 0.01 - 0.08 x10'3/uL 06/08/2018 7:43 PM CDT [facility] ABS. IMMATURE GRANULOCYTES 0.03 0.00 - 0.03 x10'3/uL 06/08/2018 7:43 PM CDT [facility] 06/08/2018 10:5 7 AM CDT Clara [facility] Final Resul t [facility] [address] [place] [address], documented in this encounter Visit Diagnoses Diagnosis Mixed hyperlipidemia- Primary Encounter for preventive health examination Routine general medical examination at a health care facility Morbid obesity (CMS/HCC HHS/HCC) Morbid obesity Screening for endocrine disorder Prostate cancer screening Special screening for malignant neoplasm of prostate Painful orthopaedic hardware (CMS/HCC)- Primary documented in this encounter Care Teams Kiln Transfer Operator Relationship Specialty Start Date End Date Clara Stanley APNP [address] [place] [address] PCP - General NURSE PRACTITIONER 06/01/18 documented as of this encounter
--- OUTSIDE RECORDS SUMMARY | 2024-03-02 04:03 | XMS_ITS | Encounter Summary ---
Author Organization [facility] Address [address] [place] [address]. [place], [place] [address] [place] [address] Care Team Providers Care Clinical Trials Nurse Name Role Phone Clara Stanley Primary Care Provider [phone] Reason for Visit * Reason Comments Follow Up Encounter Details Date Type Department Care Team (Late st Contact Info) Description 08/02/2018 9:00 AM CDT Office Visit [facility] Medical Group Family & Internal Medicine [address] [place] [address] Clara Stanley APNP [facility] [place], [place] [phone] Follow Up Social History Tobacco Use Types [...] st Contact Info) Description 03/28/2024 7:30 AM FILE KEEPER Hospital Encounter [facility] [place] [address] Antwan Stone DPM [address] [place] [address] 03/28/2024 7:30 AM FILE KEEPER Anesthesia Event [place] [address] Shanelle Avila, OIL DRILLER [address] [place] [address] 03/28/2024 7:30 AM FILE KEEPER - 03/28/2024 8:48 AM FILE KEEPER Surgery [place] [address] Antwan Stone DPM [address] [place] [address] REMOVAL OF HARDWARE LEFT FOOT 04/05/2024 8:30 AM FILE KEEPER Office Visit Darren Chaudhari-O'F allon THREE [facility], [address] [place] [address] Dominick Mccloud MD Three [facility]. [facility] [address] [place] [address] Scheduled Procedures Name Priority Associated Diagnoses Date/Ti me REMOVAL PLATE SCREW OR PIN SCHED BY FAX 02/08/24 [facility] PHONE ASSESS 03/28/2024 7:30 AM FILE KEEPER documented as of this encounter Visit Diagnoses Diagnosis Hypertension, benign- Primary Essential hypertension, benign Mixed hyperlipidemia Morbid obesity (CMS/HCC HHS/HCC) Morbid obesity Painful orthopaedic hardware (CMS/HCC)- Primary documented in this encounter Care Teams Clinical Trials Nurse Relationship Specialty Start Date End Date Clara Stanley APNP [address] [place] [address] PCP - General NURSE PRACTITIONER 06/01/18 documented as of this encounter
--- OUTSIDE RECORDS SUMMARY | 2024-03-02 04:03 | XMS_ITS | Encounter Summary ---
Author Organization [facility] Address [address] [place] [address]. [place], [place] [address] [place] [address] Care Team Providers Care Psychiatric Nursing Assistant Name Role Phone Clara Stanley Primary Care Provider [phone] Encounter Details Date Type Department Care Team (Late st Contact Info) Description 06/30/2018 Abstract [facility] Day Services [address] [address], [place] [id number] Hector Delgado MD [address] [address] Social History Tobacco Use Types Packs/Day Years [...] AM [facility] Hospital Encounter [facility] [place] [address] Antwan Stone, DPM [address] [place], [place] [address] 03/28/2024 7:30 AM TECHNICIANS AND TRADES WORKERS Anesthesia Event [facility] [place] [address] Shanelle Avila, BEAM HOUSE INSPECTOR [address] [place] [address] 03/28/2024 7:30 AM TECHNICIANS AND TRADES WORKERS - 03/28/2024 8:48 AM TECHNICIANS AND TRADES WORKERS Surgery [facility] [place] [address] Antwan Stone, DIEGO [address] [place] [address] REMOVAL OF HARDWARE LEFT FOOT 04/05/2024 8:30 AM TECHNICIANS AND TRADES WORKERS Office Visit [place] THREE [facility], [facility] [address] [place] [address] Dominick Mccloud MD Three [facility]. [facility] [address] [place] [address] Scheduled Procedures Name Priority Associated Diagnoses Date/Ti me REMOVAL PLATE SCREW OR PIN SCHED BY FAX 02/08/24 [facility] PHONE ASSESS 03/28/2024 7:30 AM TECHNICIANS AND TRADES WORKERS documented as of this encounter Visit Diagnoses Diagnosis Encounter for screening for malignant neoplasm of colon Special screening for malignant neoplasms, colon Painful orthopaedic hardware (CMS/HCC)- Primary documented in this encounter Care Teams Psychiatric Nursing Assistant Relationship Specialty Start Date End Date Clara Stanley APNP [address] [place] [address] PCP - General NURSE PRACTITIONER 06/01/18 documented as of this encounter
--- OUTSIDE RECORDS SUMMARY | 2024-03-02 04:03 | XMS_ITS | Encounter Summary ---
Author Organization [facility] Address [address] [place] [address]. [address] [address] Care Team Providers Care Manager Ui Name Role Phone Clara Stanley Primary Care Provider [phone]- [phone] Reason for Visit * Reason Onset Date Comments Lab Order 08/02/2018 Encounter Details Date Type Department Care Team (Late st Contact Info) Description 08/02/2018 Telephone [facility] Medical Group Family & Internal Medicine [facility] [address] [place] [address] Clara Stanley APNP [address] [place] [address] Lab Order Social History Tobacco [...] Contact Info) Description 03/28/2024 7:30 AM MANAGER STRATEGIC MARKETING Hospital Encounter [facility] [place] [address] Antwan Stone, DIEGO [address], [place] [address] 03/28/2024 7:30 AM MANAGER STRATEGIC MARKETING Anesthesia Event [facility] [address] Shanelle Avila, MILLINERY DEPARTMENT MANAGER [address] [place] [address] 03/28/2024 7:30 AM MANAGER STRATEGIC MARKETING - 03/28/2024 8:48 AM MANAGER STRATEGIC MARKETING Surgery [place] [address] Antwan Stone, DIEGO [address] [place], [place] [address] REMOVAL OF HARDWARE LEFT FOOT 04/05/2024 8:30 AM MANAGER STRATEGIC MARKETING Office Visit [place] [facility] THREE [facility], [facility] [address] [place] [address] Dominick Mccloud MD Three [facility]. [facility] [address] [place] [address] Scheduled Procedures Name Priority Associated Diagnoses Date/Ti me REMOVAL PLATE SCREW OR PIN SCHED BY FAX 02/08/24 [facility] PHONE ASSESS 03/28/2024 7:30 AM MANAGER STRATEGIC MARKETING documented as of this encounter Visit Diagnoses Not on filedocumented in this encounter Care Teams Manager Ui Relationship Specialty Start Date End Date Clara Stanley APNP [address] [place] [address] PCP - General NURSE PRACTITIONER 06/01/18 documented as of this encounter
--- OUTSIDE RECORDS SUMMARY | 2024-03-02 04:03 | XMS_ITS | Encounter Summary ---
Author Organization [facility] Address [address] [place] [address]. [place] [address] [place] [address] Care Team Providers Care Heel Sorter Name Role Phone Clara Stanley Primary Care Provider [phone]- [phone] Dominick Mccloud MD Unavailable [phone] Alexis Lopez MD Unavailable [phone] Encounter Details Date Type Department Care Team (Late st Contact Info) Description 07/06/2018 Abstract [facility] [address] [address] Hector Delgado MD [address] [place] [address] Social History Tobacco Use Types Packs/Day [...] COVID-19? No / Unsure 03/28/2020 11:13 AM BIOMETRIC SCREENER documented as of this encounter Plan of Treatment Upcoming Encounters Date Type Department Care Team (Late st Contact Info) Description 03/28/2024 7:30 AM BIOMETRIC SCREENER Hospital Encounter [facility] [place] [place] [address] Antwan Stone, DIEGO [address], [place] [address] 03/28/2024 7:30 AM BIOMETRIC SCREENER Anesthesia [place] [address] Shanelle Avila, RAEANN [address] [place] [address] 03/28/2024 7:30 AM BIOMETRIC SCREENER - 03/28/2024 8:48 AM BIOMETRIC SCREENER [place] [address] Antwan cruz, DIEGO [address], [place] [address] REMOVAL OF HARDWARE LEFT FOOT 04/05/2024 8:30 AM BIOMETRIC SCREENER Office Visit [facility] THREE [facility], [facility] [address] [place] [address] Dominick Mccloud MD Three [facility]. [facility] [address] [place] [address] Scheduled Procedures Name Priority Associated Diagnoses Date/Ti me REMOVAL PLATE SCREW OR PIN SCHED BY FAX 02/08/24 [facility] PHONE ASSESS 03/28/2024 7:30 AM BIOMETRIC SCREENER documented as of this encounter Visit Diagnoses Not on filedocumented in this encounter Additional Health Concerns Infection Onset Date Last Indicated Resolved Time COVID-19 Rule Out 10/28/2019 10/28/2019 10/30/2019 8:53 AM CDT documented as of this encounter Care Teams Heel Sorter Relationship Specialty Start Date End Date Clara Stanley APNP [address] [place] [address] PCP - General NURSE PRACTITIONER 06/01/18 Dominick Mccloud MD [address] [place] [address] [employer] Advisor CARDIOVASCULAR DISEASE 03/28/19 Alexis Lopez MD [address] [facility] [address] [address] PULMONARY DISEASE 10/21/19 documented as of this encounter
--- OUTSIDE RECORDS SUMMARY | 2024-03-02 04:03 | XMS_ITS | Encounter Summary ---
Author Organization [facility] Address [address] [place] [address]. [place], [place] [address] [place] [address] Care Team Providers Care Grassroots Organizer Name Role Phone Clara Stanley Primary Care Provider [phone] Reason for Visit * Reason Onset Date Comments Results 10/04/2018 Encounter Details Date Type Department Care Team (Late st Contact Info) Description 10/04/2018 Telephone [facility] Medical Group Family & Internal Medicine [address] [place] [address] Clara Stanley APNP [address] [place] [address] Results Social History Tobacco Use [...] st Contact Info) Description 03/28/2024 7:30 AM LANDSCAPE CREW LEADER Hospital Encounter [facility] [place] [address] Antwan Stone, DPM [address], [place] [address] 03/28/2024 7:30 AM LANDSCAPE CREW LEADER Anesthesia [place] [address] Shanelle Avila, SUPERVISOR COVERING AND LINING [address] [place] [address] 03/28/2024 7:30 AM LANDSCAPE CREW LEADER - 03/28/2024 8:48 AM LANDSCAPE CREW LEADER Surgery [place] [address] Antwan Stone, TEJASM [address], [place] [address] REMOVAL OF HARDWARE LEFT FOOT 04/05/2024 8:30 AM LANDSCAPE CREW LEADER Office Visit [facility] Chaudhari-O'F allon THREE [facility], [place] [address] [place] [address] Dominick Mccloud MD Three [facility]. [facility] [address] [place] [address] Scheduled Procedures Name Priority Associated Diagnoses Date/Ti me REMOVAL PLATE SCREW OR PIN SCHED BY FAX 02/08/24 KAYLIE PHONE ASSESS 03/28/2024 7:30 AM LANDSCAPE CREW LEADER documented as of this encounter Visit Diagnoses Not on filedocumented in this encounter Care Teams Grassroots Organizer Relationship Specialty Start Date End Date Clara Stanley APNP [address] [place] [address] PCP - General NURSE PRACTITIONER 06/01/18 documented as of this encounter
--- OUTSIDE RECORDS SUMMARY | 2024-03-02 04:03 | XMS_ITS | Encounter Summary ---
Author Organization [facility] Address [address] [place] [address]. [place], [place] [address] [place] [address] Care Team Providers Care Risk Investigator Name Role Phone Clara Stanley Primary Care Provider [phone] Reason for Visit * Reason Onset Date Comments Appointment Request 07/09/2018 Encounter Details Date Type Department Care Team (Late st Contact Info) Description 07/09/2018 Telephone [facility] Medical Group Multispecialty Care - [facility] 3 [facility] [address] [place] [phone] Hector Delgado MD 3 [facility] [address] [place] [address] Appointment Request Social History Tobacco Use Types [...] be seen. The appointment is 07/13/18. Faxnumber [phone]. documented in this encounter Plan of Treatment Upcoming Encounters Date Type Department Care Team (Late st Contact Info) Description 03/28/2024 7:30 AM FINANCIAL COMPLIANCE MANAGER Hospital Encounter [facility] [place] [address] Antwan Stone, TEJASM [address] [place], [place] [address] 03/28/2024 7:30 AM FINANCIAL COMPLIANCE MANAGER Anesthesia [place] [address] Shanelle Avila, CLOSING SPECIALIST [address] [place] [address] 03/28/2024 7:30 AM FINANCIAL COMPLIANCE MANAGER - 03/28/2024 8:48 AM FINANCIAL COMPLIANCE MANAGER [place] [address] Antwan Stone, DIEGO [address], [place] [address] REMOVAL OF HARDWARE LEFT FOOT 04/05/2024 8:30 AM FINANCIAL COMPLIANCE MANAGER Office Visit [facility]-O'F allon THREE [address] [address] Dominick Mccloud MD [facility] [address] [place] [address] Scheduled Procedures Name Priority Associated Diagnoses Date/Ti me REMOVAL PLATE SCREW OR PIN SCHED BY FAX 02/08/24 [facility] PHONE ASSESS 03/28/2024 7:30 AM FINANCIAL COMPLIANCE MANAGER documented as of this encounter Visit Diagnoses Not on filedocumented in this encounter Care Teams Risk Investigator Relationship Specialty Start Date End Date Clara Stanley APNP [address] [place] [address] PCP - General NURSE PRACTITIONER 06/01/18 documented as of this encounter
--- OUTSIDE RECORDS SUMMARY | 2024-03-02 04:03 | XMS_ITS | Encounter Summary ---
Author Organization [facility] Address [address] [place] [address]. [place] [address] [place] [address] Care Team Providers Care Marketing Account Manager Name Role Phone Jerry Fatima MD Primary Care Provider Yan alvarado Encounter Details Date Type Department Care Team (Late st Contact Info) Description 02/10/[address] [place] [address] Jaskaran Lubin MD Social History Tobacco Use [...] st Contact Info) Description 03/28/2024 7:30 AM COIN DEALER Hospital Encounter [facility] [place] [address] Antwan Stone, DIEGO [address] [place] [address] 03/28/2024 7:30 AM COIN DEALER Anesthesia Event [facility] [place] [address] Shanelle Avila, LINE SERVICE PERSON 1 [place] [address] 03/28/2024 7:30 AM COIN DEALER - 03/28/2024 8:48 AM COIN DEALER Surgery [place] [place] [address] Antwan Stone, DPM [address] [place] [address] REMOVAL OF HARDWARE LEFT FOOT 04/05/2024 8:30 AM COIN DEALER Office Visit Darren Fara-O'F allon THREE [facility], [facility] [address] [place] [address] Dominick Mccloud MD Three [facility]. [facility] [address] [place] [address] Scheduled Procedures Name Priority Associated Diagnoses Date/Ti me REMOVAL PLATE SCREW OR PIN SCHED BY FAX 02/08/24 [facility] PHONE ASSESS 03/28/2024 7:30 AM COIN DEALER documented as of this encounter Visit Diagnoses Diagnosis Pain in soft tissues of limb Pain in limb Painful orthopaedic hardware (CMS/HCC)- Primary documented in this encounter Care Teams Marketing Account Manager Relationship Specialty Start Date End Date Jerry Fatima MD PCP - General 01/11/15 05/31/18 documented as of this encounter
--- OUTSIDE RECORDS SUMMARY | 2024-03-02 04:03 | XMS_ITS | Encounter Summary ---
Author Organization [facility] Address [address] [place] [address]. [place], [place] [address] [place] [address] Care Team Providers Care Quail Farmer Name Role Phone Clara Stanley Primary Care Provider +1 [phone] Reason for Referral * Surgical (Routine) - Closed Specialty Diagnoses / Procedures Referred By Contac t Referred To Contact VASCULAR SURGERY Diagnoses Varicose veins of right lower extremity with pain Procedures STAB PHLECTOMY VARICOSE Antwan Milton MD [facility]. [facility] [address] [place] [address] Phone: tel: fax: [facility] 1 [place] [address] Referral ID Status Reason Start Date Expiration Date Visits Re quested Visits Authorized [id number] Closed 04/15/2019 07/14/2019 1 1 ER AND POUNDER Encounter Details Date Type Department Care Team (Late st Contact Info) Description 03/17/2019 Orders Only [facility], [facility] [address] [place] [address] Antwan iMlton MD [facility]. [facility] [address] [place] [address] Social History Tobacco Use Types [...] st Contact Info) Description 03/28/2024 7:30 AM RUBBER AND POUNDER Hospital Encounter [facility] [place] [address] Antwan Stone, DIEGO [address] [place], [place] [address] 03/28/2024 7:30 AM RUBBER AND POUNDER Anesthesia [place] [address] Shanelle Avila, INTERN PRODUCT MARKETING MANAGER 1 [place] [address] 03/28/2024 7:30 AM RUBBER AND POUNDER - 03/28/2024 8:48 AM RUBBER AND POUNDER Surgery [place] [address] Antwan Stone, DIEGO [address], [place] [address] REMOVAL OF HARDWARE LEFT FOOT 04/05/2024 8:30 AM RUBBER AND POUNDER Office Visit Darren Chaudhari-O'F lonnie THREE [address] [address] Dominick Mccloud MD [facility] [address] [place] [address] Scheduled Orders Name Type Priority Associated Diagnoses Orde r Schedule STAB PHLECTOMY VARICOSE Procedures Routine Varicose veins of right lower extremity with pain Ordered: 03/17/2019 Scheduled Procedures Name Priority Associated Diagnoses Date/Ti me REMOVAL PLATE SCREW OR PIN SCHED BY FAX 02/08/24 [facility] PHONE ASSESS 03/28/2024 7:30 AM RUBBER AND POUNDER documented as of this encounter Visit Diagnoses Diagnosis Varicose veins of right lower extremity with pain- Primary Varicose veins of lower extremities with other complications Painful orthopaedic hardware (CMS/HCC)- Primary documented in this encounter Care Teams Quail Farmer Relationship Specialty Start Date End Date Clara Stanley APNP [facility]1 [place] [address] PCP - General NURSE PRACTITIONER 06/01/18 documented as of this encounter
--- OUTSIDE RECORDS SUMMARY | 2024-03-02 04:03 | XMS_ITS | Encounter Summary ---
Author Organization [facility] Address [address] [place] [address]. [place], [place] [address] [place] [address] Care Team Providers Care Revenue Agent Name Role Phone Jerry Fatima MD Primary Care Provider Yan alvarado Encounter Details Date Type Department Care Team (Latest Contact Info) Description 12/18/2014 Abstract [facility] Medical Group Social History Tobacco Use [...] st Contact Info) Description 03/28/2024 7:30 AM IT OPERATIONS ANALYST Hospital Encounter [place] [address] Antwan Stone, DIEGO [address], [place] [address] 03/28/2024 7:30 AM IT OPERATIONS ANALYST Anesthesia Event [place] [address] Shanelle Avila, ICE SKATING TEACHER 1 [place] [address] 03/28/2024 7:30 AM IT OPERATIONS ANALYST - 03/28/2024 8:48 AM IT OPERATIONS ANALYST Surgery [place] [address] Antwan Stone DPM [address] [place] [address] REMOVAL OF HARDWARE LEFT FOOT 04/05/2024 8:30 AM IT OPERATIONS ANALYST Office Visit Darren Chaudhari-O'F allon THREE [facility], [facility] [address] [place] [address] Dominick Mccloud MD Three [facility]. [facility] [address] [place] [address] Scheduled Procedures Name Priority Associated Diagnoses Date/Ti me REMOVAL PLATE SCREW OR PIN SCHED BY FAX 02/08/24 [facility] PHONE ASSESS 03/28/2024 7:30 AM IT OPERATIONS ANALYST documented as of this encounter Visit Diagnoses Not on filedocumented in this encounter Care Teams Revenue Agent Relationship Specialty Start Date End Date Jerry Fatima MD PCP - General 01/11/15 05/31/18 documented as of this encounter
--- OUTSIDE RECORDS SUMMARY | 2024-03-02 04:03 | XMS_ITS | Encounter Summary ---
Author Organization [facility] Address [address] [place] [address]. [place], [place] [address] [place] [address] Care Team Providers Care International Trade Compliance Manager Name Role Phone Clara Stanley Primary Care Provider +1 [phone] Reason for Referral * Consultation (Routine) - Closed Specialty Diagnoses / Procedures Referred By Contrebekah t Referred To Contact GASTROENTEROLOGY Diagnoses Colon cancer screening Clara Stanley APNP [address] [place] [address] Phone: tel: fax: [facility] - [address], [address] [place] [address] Phone: tel: fax: Referral ID Status Reason Start Date Expiration Date Visits Re quested Visits Authorized [id number] Closed 06/07/2018 07/08/2019 100 100 Reason for Visit * Reason Comments New Patient Hyperlipidemia Encounter Details Date Type Department Care Team (Latest Contact Info) Description 06/07/2018 11:20 AM CDT Office Visit [facility] Family & Internal Medicine - [address] [phone] Clara Stanley APNP [address] [place] [id number] New Patient; Hyperlipidemia Social History Tobacco Use [...] Written by the doctors and editors at [facility] What does my lifestyle have to do [...] type of person who eats cheeseburgers and Emirati fries all the time, you can't switch [...] keep the cheeseburger but give up the Emirati fries. Or eat the same things but [...] process is complete. This topic retrieved from [employer] on: Dec 25, 2017. Topic 94530 Version 5.0 Release: 26.4.7 - C26.268 ?2018??[employer]. and/or its affiliates.??All rights reserved. figure 1: Sources of sodium in your diet Graphic 55216 Version 2.0 Consumer Information Use and Disclaimer [...] that is right for you.The use of [employer] content is governed by the [employer] Terms of Use. ??2018 [employer]. All rights reserved. Copyright ?2018??[employer]. and/or its affiliates.??All rights reserved. Patient Education [...] Prevention http://www.cdc.gov/healthyweight/effects/index.html?s_cid=tw_ob245 National Heart, Lung and Blood [place] http://www.nhlbi.nih.gov/health/health-topics/topics/obe/risks.html Weight Control Information Network http://win.niddk.nih.gov/publications/health_risks.htm Last [...] right for you. Copyright Copyright ?? 2018 [employer]. and its affiliates and/or licensors. All rights reserved. Patient Education Patient Education Health Risks of Obesity The Basics Written by the doctors and editors at [facility] What does it mean to be obese???--??Doctors [...] process is complete. This topic retrieved from [employer] on: Dec 25, 2017. Topic 76217 Version 10.0 Release: 26.4.7 - C26.268 ?2018??[employer]. and/or its affiliates.??All rights reserved. figure 1: Your body mass index (BMI) Find your height (in feet and inches) in the top row. Then find your weight (in pounds) in the first column. Now find where the column for your height and the row for your weight meet. That is your BMI. For example, if you are 7-paij-4-inches tall and you weigh 260 pounds, your BMI is 38. You can also go online to www.[employer]/patients and search for BMI. There you will find a calculator that will tell you what your BMI is if you type in your height and weight. Graphic 07521 Version 3.0 Consumer Information Use and Disclaimer [...] that is right for you.The use of [employer] content is governed by the [employer] Terms of Use. ??2018 [employer]. All rights reserved. Copyright ?2018??[employer] and/or its affiliates.??All rights reserved. Patient Education Patient Education High Blood Pressure in Adults The Basics Written by the doctors and editors at [employer] What is high blood pressure???--??High blood pressure [...] process is complete. This topic retrieved from [employer] on: Dec 25, 2017. Topic 45424 Version 12.0 Release: 26.4.7 - C26.268 ?2018??[employer] and/or its affiliates.??All rights reserved. table 1: Definition of normal and high blood pressure Level Top number Bottom number High 130 or above 80 or above Elevated 120 to 129 79 or below Normal 119 or below 79 or below ?? These definitions are from the [place] College [employer]/[place] Heart Association. Other expert groups might use slightly different definitions. ?? Elevated blood pressure is a term doctor or nurses use as a warning. It means you do not yet have high blood pressure, but your blood pressure is not as low as it should be for good health. Graphic 71867 Version 6.0 Consumer Information Use and Disclaimer [...] that is right for you.The use of [employer] content is governed by the [employer] Terms of Use. ??2018 [employer]. All rights reserved. Copyright ?2018??[employer]. and/or its affiliates.??All rights reserved. documented in this encounter Progress Notes * ZEB Nunn - 06/07/2018 11:20 AM CDT Images from the original note were not included. [facility] FAMILY AND INTERNAL MEDICINE OFFICE [...] file Gets together: Not on file Attends restorationism service: Not on file Active member of [...] [facility] Hospital Encounter [facility] [place] [address] Antwan Stone DPM [address] [place] [address] 03/28/2024 7:30 AM [facility] Anesthesia Event [place] [address] Shanelle Avila, TOBACCO DRIER OPERATOR 1 [place] [address] 03/28/2024 7:30 AM OUTSOLE SPLICER - 03/28/2024 8:48 AM [facility] Surgery [place] [address] Antwan Stone DPM [address], [place] [address] REMOVAL OF HARDWARE LEFT FOOT 04/05/2024 8:30 AM OUTSOLE SPLICER Office Visit [facility] THREE [facility], [facility] [address] [place] [address] Dominick Mccloud MD Three [facility]. [facility] [address] [place] [address] Scheduled Procedures Name Priority Associated Diagnoses Date/Ti me REMOVAL PLATE SCREW OR PIN SCHED BY FAX 02/08/24 [facility] PHONE ASSESS 03/28/2024 7:30 AM OUTSOLE SPLICER Scheduled Referrals Name Type Priority Associated Diagnoses [...] Primary documented in this encounter Care Teams International Trade Compliance Manager Relationship Specialty Start Date End Date Clara Stanley APNP [address] [place] [address] PCP - General NURSE PRACTITIONER 06/01/18 documented as of this encounter
--- OUTSIDE RECORDS SUMMARY | 2024-03-02 04:03 | XMS_ITS | Encounter Summary ---
Author Organization [facility] Address [address] [place] [address]. [place], [place] [address] [place] [address] Care Team Providers Care Handbag Operator Name Role Phone Mo Salamanca MD Primary Care Provider Yan alvarado Encounter Details Date Type Department Care Team (Latest Contact Info) Description 01/11/2015 Abstract [facility] Medical Group Mo Salamanca MD Social [...] st Contact Info) Description 03/28/2024 7:30 AM WIRELESS CONSULTANT Hospital Encounter [facility] [place] [address] Antwan Stone, DIEGO [address] [place] [address] 03/28/2024 7:30 AM WIRELESS CONSULTANT Anesthesia Event [place] [address] Shanelle Avila, DEEP TISSUE MASSAGE THERAPIST 1 [place] [address] 03/28/2024 7:30 AM WIRELESS CONSULTANT - 03/28/2024 8:48 AM WIRELESS CONSULTANT Surgery [place] OR ONE [facility] [place] [address] Antwan Stone, DIEGO [address], [place] [address] REMOVAL OF HARDWARE LEFT FOOT 04/05/2024 8:30 AM WIRELESS CONSULTANT Office Visit Trigg Faar-O'F johnn THREE [facility] [place], [facility] [address] [place] [address] Dominick Mccloud MD Three [facility]. [facility] [address] [place] [address] Scheduled Procedures Name Priority Associated Diagnoses Date/Ti me REMOVAL PLATE SCREW OR PIN SCHED BY FAX 02/08/24 [facility] PHONE ASSESS 03/28/2024 7:30 AM WIRELESS CONSULTANT documented as of this encounter Procedures Procedure Name Priority Date/Time Associated Diagnosis Comments US ABD COMPLETE Routine 01/11/2015 8:50 AM CDT documented in this encounter Results * US ABD COMPLETE (01/11/2015 8:50 AM CDT) Anatomical Region Laterality Modality Abdomen Ultrasound 01/11/2015 8:50 AM CDT 01/11/2015 8:50 AM CDT Narrative 01/11/2015 2:49 PM CDT [facility] ? ADMIT/SERVICE DATE: 01/11/15 ?? ACCT: [id number] ?DISCHARGE DATE: ?? : 1965 ??SEX: M ?ORD SITE: [facility] ?? PT TYPE: REG CLI ? ORDERING MD: MO SALAMANCA MD ? STUDY DATE ? REPORT # ?ORDER # ? EXT ORDER ID ?? 01/11/15 ? [id number] ? [id number] ?[id number] ? PROC CODE: ? ABDCMP ? PROCEDURE [...] NO ASCITES. ? ELECTRONICALLY SIGNED BY: LALITA HEDA01/11/2015 8:54 AM ? Procedure Note Marge Bansal MD - 01/07/2018 [facility] ADMIT/SERVICE DATE:01/11/15 ACCT: [id number] DISCHARGE DATE: : 1965 SEX: M ORD SITE: [facility] PT TYPE: REG CLI ORDERING MD:MO SALAMANCA MD STUDY DATE REPORT # ORDER # EXT ORDER ID 01/11/15 [id number] PROC CODE: ABDCMP PROCEDURE DESCRIPTION: US ABDOMEN [...] on filedocumented in this encounter Care Teams Handbag Operator Relationship Specialty Start Date End Date Mo Salamanca MD PCP - General 01/11/15 05/31/18 documented as of this encounter
--- OUTSIDE RECORDS SUMMARY | 2024-03-02 04:03 | XMS_ITS | Encounter Summary ---
Author Organization [facility] Address [address] [place] [address]. [place], [place] [address] [place] [address] Care Team Providers Care Polisher And Sander Name Role Phone Clara Stanley Primary Care Provider [phone]- [phone] Reason for Visit * Reason Onset Date Comments Rectal Problem 07/06/2018 Encounter Details Date Type Department Care Team (Late st Contact Info) Description 07/06/2018 Telephone [facility] Medical Group Family & Internal Medicine [place] [address] [place] [address] Clara Stanley APNP [facility]1 [place] [address] Rectal Problem Social History Tobacco [...] st Contact Info) Description 03/28/2024 7:30 AM FLOOR COVERING CONTRACTOR Hospital Encounter [facility] [place] [address] Antwan Stone, DIEGO [address] [place], [place] [address] 03/28/2024 7:30 AM FLOOR COVERING CONTRACTOR Anesthesia Event [place] [address] Shanelle Avila, RAEANN 1 [place] [address] 03/28/2024 7:30 AM FLOOR COVERING CONTRACTOR - 03/28/2024 8:48 AM FLOOR COVERING CONTRACTOR Surgery [facility] [place] [address] Antwan Stone, DIEGO [address] [place], [place] [address] REMOVAL OF HARDWARE LEFT FOOT 04/05/2024 8:30 AM FLOOR COVERING CONTRACTOR Office Visit [facility] THREE [facility], [facility] [address] [place] [address] Dominick Mccloud MD Three [facility]. [facility] [address] [place] [address] Scheduled Procedures Name Priority Associated Diagnoses Date/Ti me REMOVAL PLATE SCREW OR PIN SCHED BY FAX 02/08/24 KAYLIE PHONE ASSESS 03/28/2024 7:30 AM FLOOR COVERING CONTRACTOR documented as of this encounter Visit Diagnoses Not on filedocumented in this encounter Care Teams Polisher And Sander Relationship Specialty Start Date End Date Clara Stanley APNP [address] [place] [address] PCP - General NURSE PRACTITIONER 06/01/18 documented as of this encounter
--- OUTSIDE RECORDS SUMMARY | 2024-03-02 04:03 | XMS_ITS | Encounter Summary ---
Author Organization [facility] Address [address] [place] [address]. [place], [place] [address] [place] [address] Care Team Providers Care Battery Container Tester Name Role Phone Clara Stanley Primary Care Provider +1 [phone] Encounter Details Date Type Department Care Team (Late st Contact Info) Description 06/28/[address] [facility] Cardiopulmonary Services [address] [place], [place] [id number] Hector Delgado MD [address] [address] Social History Tobacco Use Types Packs/Day Years [...] [facility] Hospital Encounter [facility] [place] [address] Antwan Stone, DPM [address] [place], [place] [address] 03/28/2024 7:30 AM GROUP HOME SUPERVISOR Anesthesia Event [facility] [place] [address] Shanelle Avila, RAEANN 1 [place] [address] 03/28/2024 7:30 AM GROUP HOME SUPERVISOR - 03/28/2024 8:48 AM GROUP HOME SUPERVISOR Surgery [facility] [place] [address] Antwan Stone, DIEGO [address] [place] [address] REMOVAL OF HARDWARE LEFT FOOT 04/05/2024 8:30 AM GROUP HOME SUPERVISOR Office Visit [facility] THREE [facility], [facility] [address] [place] [address] Dominick Mccloud MD Three [facility]. [facility] [address] [place] [address] Scheduled Procedures Name Priority Associated Diagnoses Date/Ti me REMOVAL PLATE SCREW OR PIN SCHED BY FAX 02/08/24 [facility] PHONE ASSESS 03/28/2024 7:30 AM GROUP HOME SUPERVISOR documented as of this encounter Visit Diagnoses Diagnosis Encounter for preprocedural cardiovascular examination Pre-operative cardiovascular examination Painful orthopaedic hardware (CMS/HCC)- Primary documented in this encounter Care Teams Battery Container Tester Relationship Specialty Start Date End Date Clara Stanley APNP [address] [place] [address] PCP - General NURSE PRACTITIONER 06/01/18 documented as of this encounter
--- OUTSIDE RECORDS SUMMARY | 2024-03-02 04:03 | XMS_ITS | Encounter Summary ---
Author Organization [facility] Address [address] [place] [address]. [place], [place] [address] [place] [address] Care Team Providers Care Diabetic Educator Name Role Phone Clara Stanley Primary Care Provider +1 [phone] Encounter Details Date Type Department Care Team (Late st Contact Info) Description 06/07/2018 Orders Only [facility] Medical Group Family & Internal Medicine [address] [address] Jadyn Riley MA Social History [...] AM [facility] Hospital Encounter [facility] [place] [address] Antwan Stone DPM [address] [place] [address] 03/28/2024 7:30 AM EDITOR AT LARGE Anesthesia Event [place] [place] [address] Shanelle Avila, [place]A F[place]AIN OPERATOR 1 [place] [address] 03/28/2024 7:30 AM EDITOR AT LARGE - 03/28/2024 8:48 AM EDITOR AT LARGE Surgery [place] [place] [address] Antwan Stone, DPM [address], [place] [address] REMOVAL OF HARDWARE LEFT FOOT 04/05/2024 8:30 AM EDITOR AT LARGE Office Visit Darren Chaudhari-O'F allon THREE [facility], [facility] [address] [place] [address] Dominick Mccloud MD Three [facility]. [facility] [address] [place] [address] Scheduled Procedures Name Priority Associated Diagnoses Date/Ti me REMOVAL PLATE SCREW OR PIN SCHED BY FAX 02/08/24 [facility] PHONE ASSESS 03/28/2024 7:30 AM EDITOR AT LARGE documented as of this encounter Visit Diagnoses Not on filedocumented in this encounter Care Teams Diabetic Educator Relationship Specialty Start Date End Date Clara Stanley APNP [address] [place] [address] PCP - General NURSE PRACTITIONER 06/01/18 documented as of this encounter
--- OUTSIDE RECORDS SUMMARY | 2024-03-02 04:03 | XMS_ITS | Encounter Summary ---
Author Organization [facility] Address [address] [place] [address]. [place], [place] [address] [place] [address] Care Team Providers Care Criminal Justice Social Worker Name Role Phone Clara Stanley Primary Care Provider [phone] Reason for Referral * Surgical (Routine) - Closed Specialty Diagnoses / Procedures Referred By Contact Referred To Contact VASCULAR SURGERY / Cardiology Diagnoses Asymptomatic varicose veins of right lower extremity Clara Stanley APNP [address] [place] [address] Phone: tel: fax: [facility] [address] Phone: tel: fax: Referral ID Status Reason Start Date Expiration Date V isits Requested Visits Authorized [id number] Closed Specialty Services 02/04/2019 03/05/2020 99 99 IST PRIVATE PRACTICE Reason for Visit * Reason Comments Follow Up from [facility] Encounter Details Date Type Department Care Team (Late st Contact Info) Description 02/04/2019 9:00 AM DENTIST PRIVATE PRACTICE Office Visit [facility] Medical Group Family & Internal Medicine - [address] [phone] Clara Stanley APNP [address] [place], [place] [phone] Follow Up (from [facility]) Social History Tobacco Use Types Packs/Day [...] Comments Blood Pressure 139/75 02/04/2019 9:00 AM DENTIST PRIVATE PRACTICE Pulse 56 02/04/2019 9:00 AM DENTIST PRIVATE PRACTICE Temperature 35.8 ??C (96.5 ??F) 02/04/2019 9:00 AM CS T Respiratory Rate 18 02/04/2019 9:00 AM DENTIST PRIVATE PRACTICE Oxygen Saturation 97% 02/04/2019 9:00 AM DENTIST PRIVATE PRACTICE Inhaled Oxygen Concentration - - Weight 168.3 kg (371 lb) 02/04/2019 9:00 AM DENTIST PRIVATE PRACTICE Height 190.5 cm (6' 3 ) 02/04/2019 9:00 AM DENTIST PRIVATE PRACTICE Body Mass Index 46.37 02/04/2019 9:00 AM DENTIST PRIVATE PRACTICE documented in this encounter Progress Notes * ZEB Nunn - 02/04/2019 9:00 AM CST Images from the original note were not included. [facility] FAMILY AND INTERNAL MEDICINE OFFICE VISIT Reason for Visit: Follow Up (from [facility]) History of Present Illness: Pt is here today for an Er follow up after he noticed his RLE---mcbride was bleeding. Called 911 and was taken to the ER at [facility]. Unfortunately at time of visit today---his ER [...] file Gets together: Not on file Attends cheondoism service: Not on file Active member of [...] not an admission. PCP: ZEB Nunn 02/04/2019 IST PRIVATE PRACTICE documented in this encounter Plan of Treatment Upcoming Encounters Date Type Department Care Team (Late st Contact Info) Description 03/28/2024 7:30 AM [facility] Hospital Encounter [facility] [place] [address] Antwan Stone DPM [address], [place] [address] 03/28/2024 7:30 AM DENTIST PRIVATE PRACTICE Anesthesia [place] [address] Shanelle Avila, GLASS BEVELER [address] [place] [address] 03/28/2024 7:30 AM DENTIST PRIVATE PRACTICE - 03/28/2024 8:48 AM DENTIST PRIVATE PRACTICE Surgery [facility] [place] [address] Antwan Stone DPM [address], [place] [address] REMOVAL OF HARDWARE LEFT FOOT 04/05/2024 8:30 AM DENTIST PRIVATE PRACTICE Office Visit [facility] THREE [facility], [facility] [address] [place] [address] Dominick Mccloud MD Three [facility]. [facility] [address] [place] [address] Scheduled Procedures Name Priority Associated Diagnoses Date/Ti me REMOVAL PLATE SCREW OR PIN SCHED BY FAX 02/08/24 [facility] PHONE ASSESS 03/28/2024 7:30 AM DENTIST PRIVATE PRACTICE Scheduled Referrals Name Type Priority Associated Diagnoses Orde r Schedule Ambulatory referral to Vascular Surgery (OTHER) Referral Routine Asymptomatic varicose veins of right lower extremity Ordered: 02/04/2019 documented as of this encounter Visit Diagnoses Diagnosis Asymptomatic varicose veins of right lower extremity- Primary Asymptomatic varicose veins Painful orthopaedic hardware (CMS/HCC)- Primary documented in this encounter Care Teams Criminal Justice Social Worker Relationship Specialty Start Date End Date Clara Stanley APNP [address] [place] [address] PCP - General NURSE PRACTITIONER 06/01/18 documented as of this encounter
--- OUTSIDE RECORDS SUMMARY | 2024-03-02 04:03 | XMS_ITS | Encounter Summary ---
Author Organization [facility] Address [address] [place] [address]. [place], [place] [id number] [place] [address] Care Team Providers Care Structural Steel Equipment Erector Name Role Phone Clara Stanley Primary Care Provider [phone] Reason for Visit * Reason Comments Consult For Colonoscopy no complaints * Consultation (Routine) - Closed Specialty Diagnoses / Procedures Referred By Erik t Referred To Contact GASTROENTEROLOGY Diagnoses Colon cancer screening Clara Stanley APNP [address] [place] [address] Phone: tel: fax: [facility] - [address], [address] [place] [phone] Phone: tel: fax: Referral ID Status Reason Start Date Expiration Date Visits Re quested Visits Authorized [id number] Closed 06/07/2018 07/08/2019 100 100 Encounter Details Date Type Department Care Team (Latest Contact Info) Description 06/17/2018 10:20 AM CDT Office Visit [address], [address] [place] [phone] Clara Stanley APNP [address] [place], [place] [phone] Tracy Encarnacion NP 3 [facility]. [address] [address] Consult For Colonoscopy (no complaints) Social History [...] help with normal bowel movements. ?? 2018 [employer]. and/or its affiliates. All Rights Reserved. Amount [...] with added ascorbic acid 1 cup 0.5 [place] 1 cup 0.7 Vegetables Cooked Green beans 1 cup 4.0 Carrots 1/2 cup sliced 2.3 Peas 1 cup 8.8 Potato (baked, with skin) 1 medium potato 3.8 Raw [place] (with peel) 1 cucumber 1.5 Lettuce 1 [...] Plenty of fish and other seafood ?? Old Lyme oil (good fat) ?? Small amounts of [...] learn more? Academy of Nutrition and Dietetics http://www.eatright.org/resource/food/ynqbtoce-ban-pcjs/ipcousz-wyre-zoh-trends/ oekz-fp-lqqctdxeiokxx [place] Heart Association https://www.heart.org/en/healthy-living/healthy-eating/eat-smart/nutrition-basic s/mediterranean-diet Last Reviewed Date [...] right for you. Copyright Copyright ?? 2019 [employer], Inc. and its affiliates and/or licensors. All rights reserved. comp/search/. Created using data from the [employer] National Nutrient Database for Standard Reference. Available at http://www.nal.usda.gov/fnic/foodcomp/search/. Graphic 09230 Version 4.0 documented in this encounter Progress [...] loss of about 25 lbs by joining [employer] but didn't keep routine up and gain [...] ??? Hypertension, benign 01/15/2017 ??? Morbid obesity ([facility]) 02/21/2015 ??? Other and unspecified hyperlipidemia 01/06/2014 [...] file Gets together: Not on file Attends bahai service: Not on file Active member of [...] 7:30 AM [facility] Hospital Encounter [facility] [place] [address] Antwan Stone DPM [address] [place] [address] 03/28/2024 7:30 AM CRANKSHAFT STRAIGHTENER Anesthesia Event [place] [address] Shanelle Avila, PLATE MAKER [address] [place] [address] 03/28/2024 7:30 AM CRANKSHAFT STRAIGHTENER - 03/28/2024 8:48 AM CRANKSHAFT STRAIGHTENER Surgery [place] [address] Antwan Stone, DPM [address] [place] [address] REMOVAL OF HARDWARE LEFT FOOT 04/05/2024 8:30 AM CRANKSHAFT STRAIGHTENER Office Visit [facility] THREE [facility], [facility] [address] [place] [address] Dominick Mccloud MD Three [facility]. [facility] [address] [place], [place] [address] Scheduled Procedures Name Priority Associated Diagnoses Date/Ti me REMOVAL PLATE SCREW OR PIN SCHED BY FAX 02/08/24 [facility] PHONE ASSESS 03/28/2024 7:30 AM CRANKSHAFT STRAIGHTENER documented as of this encounter Visit Diagnoses Diagnosis Colon cancer screening- Primary Special screening for malignant neoplasms, colon Painful orthopaedic hardware (CMS/HCC)- Primary documented in this encounter Care Teams Structural Steel Equipment Erector Relationship Specialty Start Date End Date Clara Stanley APNP [address] [place] [address] PCP - General NURSE PRACTITIONER 06/01/18 documented as of this encounter
--- OUTSIDE RECORDS SUMMARY | 2024-03-02 04:03 | XMS_ITS | Encounter Summary ---
Author Organization [facility] Address [address] [place] [address]. [place], [place] [address] [place] [address] Care Team Providers Care Cloth Mercerizing Supervisor Name Role Phone Jerry Fatima MD Primary Care Provider Yan alvarado Encounter Details Date Type Department Care Team (Latest Contact Info) Description 01/10/2015 Abstract [facility] Medical Group Social History Tobacco Use Types [...] Task Name: Medical Complaint Callback Assigned To: [facility] Team Kushal Regarding Patient: Kwaku Kulkarni, Status: In Progress Comment: Olga Coronel - 10 Jan 2015 9:04 AM TASK CREATED Caller: Anna, Spouse; Medical Complaint; ; saw the senior environmental technician and cleared of heart issues causing right sided pain. senior environmental technician suggested contacting you for possible gallbladder studys [...] Message: patient notified , orders sent to [facility] Plan 1. US ABDOMEN LIMITED RUQ; Status:Active; Requested for:10Jan2015; Perform:Other Radiology; Due:09Feb2015; Last Updated By:Jadyn Riley; 01/10/2015 10:49:54 AM;Ordered; For:Abdominal pain; Ordered By:Jerry Fatima; Signatures Electronically signed by : Jadyn Riley, ; Jan 10 2015 10:49AM BOLT LABELER (Author) documented in this encounter Plan of Treatment Upcoming Encounters Date Type Department Care Team (Late st Contact Info) Description 03/28/2024 7:30 AM BOLT LABELER Hospital Encounter [facility] [address] Antwan Stone DPM [address], [place] [address] 03/28/2024 7:30 AM BOLT LABELER Anesthesia [place] [address] Shanelle Avila, HOUSE CARPENTER [address] [place] [address] 03/28/2024 7:30 AM BOLT LABELER - 03/28/2024 8:48 AM BOLT LABELER Surgery [facility] [address] Antwan Stone DPM [address] [place] [address] REMOVAL OF HARDWARE LEFT FOOT 04/05/2024 8:30 AM BOLT LABELER Office Visit [place] [facility] THREE [facility], [facility] [address] [place] [address] Dominick Mccloud MD Three [facility]. [facility] [address] [place] [address] Scheduled Procedures Name Priority Associated Diagnoses Date/Ti me REMOVAL PLATE SCREW OR PIN SCHED BY FAX 02/08/24 [facility] PHONE ASSESS 03/28/2024 7:30 AM BOLT LABELER documented as of this encounter Visit Diagnoses Not on filedocumented in this encounter Care Teams Cloth Mercerizing Supervisor Relationship Specialty Start Date End Date Jerry Fatima MD PCP - General 01/11/15 05/31/18 documented as of this encounter
--- OUTSIDE RECORDS SUMMARY | 2024-03-02 04:03 | XMS_ITS | Encounter Summary ---
Author Organization [facility] Address [address] [place] [address]. [place], [place] [address] [place] [address] Care Team Providers Care Career Technology Teacher Name Role Phone Jerry Fatima MD Primary Care Provider Yan alvarado Encounter Details Date Type Department Care Team (Late st Contact Info) Description 08/09/2014 Abstract [facility] Conversion Md, Generic Conversion, Social History [...] Contact Info) Description 03/28/2024 7:30 AM SURGICAL ONCOLOGIST Hospital Encounter [facility] [place] [address] Antwan Stone, DIEGO [address] [place] [address] 03/28/2024 7:30 AM SURGICAL ONCOLOGIST Anesthesia Event [facility] [address] Shanelle Avila, ALUMNI RELATIONS COORDINATOR [address] [place] [address] 03/28/2024 7:30 AM SURGICAL ONCOLOGIST - 03/28/2024 8:48 AM SURGICAL ONCOLOGIST Surgery [facility] [place] [address] Antwan Stone DPM [address] [place] [address] REMOVAL OF HARDWARE LEFT FOOT 04/05/2024 8:30 AM SURGICAL ONCOLOGIST Office Visit [facility] THREE [facility], [facility] [address] [place] [address] Dominick Mccloud MD Three [facility]. [facility] [address] [place] [address] Scheduled Procedures Name Priority Associated Diagnoses Date/Ti me REMOVAL PLATE SCREW OR PIN SCHED BY FAX 02/08/24 [facility] PHONE ASSESS 03/28/2024 7:30 AM SURGICAL ONCOLOGIST documented as of this encounter Visit Diagnoses Not on filedocumented in this encounter Care Teams Career Technology Teacher Relationship Specialty Start Date End Date Jerry Fatima MD PCP - General 01/11/15 05/31/18 documented as of this encounter
--- OUTSIDE RECORDS SUMMARY | 2024-03-02 04:03 | XMS_ITS | Encounter Summary ---
Author Organization [facility] Address [address] [place] [address]. [place], [place] [address] [place] [address] Care Team Providers Care Piano Mover Name Role Phone Clara Stanley Primary Care Provider [phone] Reason for Visit * Reason Comments Varicose Veins * Surgical (Routine) - Closed Specialty Diagnoses / Procedures Referred By Contact Referred To Contact VASCULAR SURGERY / Cardiology Diagnoses Asymptomatic varicose veins of right lower extremity Clara Stanley APNP [address] [place] [address] Phone: tel: fax: [facility] at [address] [address] Phone: tel: fax: Referral ID Status Reason Start Date Expiration Date V isits Requested Visits Authorized [id number] Closed Specialty Services 02/04/2019 03/05/2020 99 99 Encounter Details Date Type Department Care Team (Late st Contact Info) Description 03/03/2019 10:15 AM CLINICAL PROFESSOR Office Visit [facility] [address] [place], [place] [phone] Antwan Milton MD [facility]. [facility] [address] [place], [place] [id number] Varicose Veins Social History Tobacco Use Types [...] Comments Blood Pressure 156/100 03/03/2019 10:20 AM CLINICAL PROFESSOR Pulse 76 03/03/2019 10:20 AM CLINICAL PROFESSOR Temperature - - Respiratory Rate - - Oxygen Saturation - - Inhaled Oxygen Concentration - - Weight 171.4 kg (377 lb 12.8 oz) 2018 10:20 AM CLINICAL PROFESSOR Height 190.5 cm (6' 3 ) 03/03/2019 10:2 0 AM CLINICAL PROFESSOR Body Mass Index 47.22 03/03/2019 10:20 AM CLINICAL PROFESSOR documented in this encounter Patient Instructions * Patient Instructions* Ese Hanson - 03/03/2019 10:15 AM CLINICAL PROFESSOR Images from the original note were not included. Patient Education Patient Education Varicose Veins and Other Vein Disease in the Legs The Basics Written by the doctors and editors at [facility] What is vein disease???--??Vein disease is [...] around, and try not to sit or investigator vice one place for a long time ?? [...] process is complete. This topic retrieved from [employer] on: Oct 27, 2018. Topic 18672 Version 8.0 Release: 27.3.2 - C27.227 ?2019??Collect and/or its affiliates.??All rights reserved. picture 1: Telangiectasias (spider veins) on the lower leg This is a picture of telangiectasias (spider veins), which are small veins that are swollen. These are also called hyphen webs or thread veins. Graphic 24159 Version 3.0 picture 2: Severe varicose veins This is a picture of varicose veins, which are swollen and twisted veins in the legs. Graphic 67805 Version 2.0 figure 1: Pitting edema To check for swelling, a doctor or nurse can press on the skin and then remove his or her finger. If the indent stays there, the person has swelling. Doctors call this pitting edema. Graphic 16212 Version 10.0 figure 2: Dnke-jexrkm-zvy method to put on compression stockings The rxpi-ltrito-zef method to put on compression stockings is [...] right-side out (as shown in C). Graphic 48710 Version 7.0 table 1: Tips for using [...] stockings can be put on using the iswd-kzbqwj-dtn method. The nwnt-srpufv-xuq method to put on compression stockings is [...] can help you put on stockings. Graphic 97520 Version 5.0 Consumer Information Use and Disclaimer [...] that is right for you.The use of [employer] content is governed by the [employer] Terms of Use. ??2019 [employer]. All rights reserved. Copyright ?2019??Collect and/or its affiliates.??All rights reserved. ICAL PROFESSOR documented in this encounter Progress Notes * [...] Referring Provider: Clara Stanley PCP: ZEB Nunn ICAL PROFESSOR documented in this encounter Plan of Treatment Upcoming Encounters Date Type Department Care Team (Late st Contact Info) Description 03/28/2024 7:30 AM CLINICAL PROFESSOR Hospital Encounter [facility] [place] [address] Antwan Stone DPM [address], [place] [address] 03/28/2024 7:30 AM CLINICAL PROFESSOR Anesthesia [place] [address] Shanelle Avila, FAMILY AND CONSUMER SCIENCES TEACHER [address] [place] [address] 03/28/2024 7:30 AM CLINICAL PROFESSOR - 03/28/2024 8:48 AM CLINICAL PROFESSOR Surgery [place] [address] Antwan Stone DPM [address], [place] [address] REMOVAL OF HARDWARE LEFT FOOT 04/05/2024 8:30 AM CLINICAL PROFESSOR Office Visit [facility] THREE [facility], [facility] [address] [place] [address] Dominick Mccloud MD Three [facility]. [facility] [address] [place] [address] Scheduled Procedures Name Priority Associated Diagnoses Date/Ti me REMOVAL PLATE SCREW OR PIN SCHED BY FAX 02/08/24 [facility] PHONE ASSESS 03/28/2024 7:30 AM CLINICAL PROFESSOR documented as of this encounter Visit Diagnoses Diagnosis Varicose veins of right lower extremity with complications- Primary Painful orthopaedic hardware (CMS/HCC)- Primary documented in this encounter Care Teams Piano Mover Relationship Specialty Start Date End Date Clara Stanley APNP [address] [place] [address] PCP - General NURSE PRACTITIONER 06/01/18 documented as of this encounter
--- OUTSIDE RECORDS SUMMARY | 2024-03-02 04:03 | XMS_ITS | Encounter Summary ---
Author Organization [facility] Address [address] [place] [address]. [place], [place] [address] [place] [address] Care Team Providers Care Show Horse Driver Name Role Phone Jerry Fatima MD Primary Care Provider Yan alvarado Encounter Details Date Type Department Care Team (Latest Contact Info) Description 12/14/2014 Abstract [facility] Medical Group Social History [...] QU-LIPID PANEL WITH REFLEX TO DIRECT LDL [id number] 02:38PM Jerry Fatima Test Name Result Flag [...] than LDL cholesterol target. Test Performed at: [facility] [address] [place] [address] ENRICO VALDEZ DO,MPH Discussion/Summary Cholesterol is at the high end of normal. He can hold off on starting a cholesterol medicine for now. Followup with the metal checker for stress testing as planned. Signatures Electronically signed by : Shyla Obdulia, ; Dec 14 2014 8:07AM CARBIDER (Author) documented in this encounter Plan of Treatment Upcoming Encounters Date Type Department Care Team (Late st Contact Info) Description 03/28/2024 7:30 AM CARBIDER Hospital Encounter [facility] [place] [address] Antwan Stone DPM [address], [place] [address] 03/28/2024 7:30 AM CARBIDER Anesthesia Event [place] [address] Shanelle Avila, EVENT EXECUTIVE [address] [place] [address] 03/28/2024 7:30 AM CARBIDER - 03/28/2024 8:48 AM CARBIDER Surgery [place] [address] Antwan Stone DPM [address], [place] [address] REMOVAL OF HARDWARE LEFT FOOT 04/05/2024 8:30 AM CARBIDER Office Visit [facility] THREE [place], [facility] [address] [place] [address] Dominick Mccloud MD Three [facility]. [facility] [address] [place] [address] Scheduled Procedures Name Priority Associated Diagnoses Date/Ti me REMOVAL PLATE SCREW OR PIN SCHED BY FAX 02/08/24 [facility] PHONE ASSESS 03/28/2024 7:30 AM CARBIDER documented as of this encounter Visit Diagnoses Not on filedocumented in this encounter Care Teams Show Horse Driver Relationship Specialty Start Date End Date Jerry Fatima MD PCP - General 01/11/15 05/31/18 documented as of this encounter
--- OUTSIDE RECORDS SUMMARY | 2024-03-02 04:03 | XMS_ITS | Encounter Summary ---
Author Organization [facility] Address [address] [place] [address]. [place], [place] [address] [place] [address] Care Team Providers Care Machine Brush Maker Name Role Phone Jerry Fatima MD Primary Care Provider Yan alvarado Encounter Details Date Type Department Care Team (Late st Contact Info) Description 01/22/2016 Abstract [facility] Medical Group Family & Internal Medicine [address] [phone] Jerry Fatima MD Social History Tobacco Use [...] Comments Blood Pressure 140/78 01/22/2016 9:15 AM HOT WOUND SPRING PRODUCTION SUPERVISOR Pulse 64 01/22/2016 9:15 AM HOT WOUND SPRING PRODUCTION SUPERVISOR Temperature - - Respiratory Rate - - Oxygen Saturation - - Inhaled Oxygen Concentration - - Weight 161.9 kg (357 lb) 01/22/2016 9:15 AM HOT WOUND SPRING PRODUCTION SUPERVISOR Height 190.5 cm (6' 3 ) 01/22/2016 9:15 AM HOT WOUND SPRING PRODUCTION SUPERVISOR Body Mass Index 44.62 01/22/2016 9:15 AM HOT WOUND SPRING PRODUCTION SUPERVISOR documented in this encounter Progress Notes [...] TAKE 1 TABLET TWICE DAILY NEEDED; Therapy: 97Bqb5050 to (Evaluate:26Dec2015) Requested for: 09Jan2016; Last Rx:[id number]; Status: ACTIVE - Renewal Denied Ordered 2. AmLODIPine Besylate 5 MG Oral Tablet; Therapy: 68Ffu8877 to Recorded 3. Atorvastatin Calcium 20 MG Oral Tablet; Therapy: 07Ekl1244 to Recorded 4. FLUoxetine HCl - 40 MG Oral Capsule; Therapy: 67Kma0458 to Recorded 5. Triamcinolone Acetonide 0.1 % External Lotion; APPLY 2-3 TIMES DAILY TO AFFECTED AREA(S); Therapy: 05Jan2014 to (Last Rx:05Jan2014) Requested for: 05Jan2014 Ordered 6. Zolpidem Tartrate 10 MG Oral Tablet; TAKE ONE TABLET BY MOUTH ONE HOUR BEFORE BEDTIME NEEDED FOR SLEEP; Therapy: 80Vds2041 to (Evaluate:04Tzx7583) Requested for: 20Dec2015; Last Rx:07Jun2015; Status: ACTIVE - Renewal Denied Ordered 7. ZyrTEC Allergy 10 MG Oral Tablet; Therapy: (Recorded:45Vuk9590) to Recorded Allergies 1. No Known Drug [...] 11.4 fL 7.5-11.5 ABSOLUTE NEUTROPHILS 6560 cells/uL 1876-7451 ABSOLUTE LYMPHOCYTES 1463 cells/uL 850-3900 ABSOLUTE MONOCYTES 837 cells/uL 200-950 ABSOLUTE EOSINOPHILS 313 cells/uL 15-500 ABSOLUTE BASOPHILS 28 cells/uL 0-200 NEUTROPHILS 71.3 % LYMPHOCYTES 15.9 % MONOCYTES 9.1 % EOSINOPHILS 3.4 % BASOPHILS 0.3 % Test Performed at: [facility] [address] [place] [address] ENRICO VALDEZ DO,MPH Assessment 1. Blood pressure [...] Requires Verification; Done: 22Jan2016 10:22AM Performed:In Office; Due:37Whp9873; Last Updated By:Stpehanie Winkler; 01/22/2016 10:22:23 AM;Ordered; For:Blood pressure elevated without history of HTN, Depression with anxiety, Hyperlipidemia, Insomnia; Ordered By:Jerry Fatima; 3. QU-CBC ( INCLUDES DIFF/PLT ) 6399; Status:Resulted - Requires Verification; Done: 22Jan2016 10:17AM Performed:[facility]; Due:96Qxg2528;Ordered; For:Blood pressure elevated without history of HTN, Depression with anxiety, Hyperlipidemia, Insomnia; Ordered By:Jerry Fatima; 4. QU-COMPREHENSIVE METABOLIC PANEL 60038; Status:Resulted - Requires Verification; Done: 22Jan2016 10:17AM Performed:[facility]; Due:80Fwd8234;Ordered; For:Blood pressure elevated without history of HTN, Depression with anxiety, Hyperlipidemia, Insomnia; Ordered By:Jerry Fatima; 5. QU-LIPID PANEL WITH REFLEX TO DIRECT LDL 02284; Status:Resulted - Requires Verification; Done: 22Jan2016 10:17AM Performed:[facility]; Due:15Tei9175;Ordered; For:Blood pressure elevated without history of HTN, [...] BEDTIME NEEDED FOR SLEEP Rx By: Jerry Fatima; Dispense: 30 Days ; #:30 Tablet; Refill: 5; For: Insomnia; PADMINI = N; Print Rx Signatures Electronically signed by : Jerry Fatima M.D.; Jan 24 2016 5:03AM HOT WOUND SPRING PRODUCTION SUPERVISOR (Author) documented in this encounter Plan of Treatment Upcoming Encounters Date Type Department Care Team (Late st Contact Info) Description 03/28/2024 7:30 AM HOT WOUND SPRING PRODUCTION SUPERVISOR Hospital Encounter [facility] [place] [address] Antwan Stone, DIEGO [address], [place] [address] 03/28/2024 7:30 AM HOT WOUND SPRING PRODUCTION SUPERVISOR Anesthesia [place] [address] Shanelle Avila, WASHCOAT WIPER 1 [place] [address] 03/28/2024 7:30 AM HOT WOUND SPRING PRODUCTION SUPERVISOR - 03/28/2024 8:48 AM HOT WOUND SPRING PRODUCTION SUPERVISOR Surgery [place] [address] Antwan Stone, DIEGO [address], [place], [place] [address] REMOVAL OF HARDWARE LEFT FOOT 04/05/2024 8:30 AM HOT WOUND SPRING PRODUCTION SUPERVISOR Office Visit [facility] Chaudh[facility]-O'F allon THREE [facility], [address] [address] Dominick Mccloud MD Three [facility]. [address] [address] Scheduled Procedures Name Priority Associated Diagnoses Date/Ti me REMOVAL PLATE SCREW OR PIN SCHED BY FAX 02/08/24 [facility] PHONE ASSESS 03/28/2024 7:30 AM HOT WOUND SPRING PRODUCTION SUPERVISOR documented as of this encounter Procedures Procedure Name Priority Date/Time Associated Diagnosis Comments HEMOGLOBIN, GLYCOSYLATED Routine 01/22/2016 10:22 AM HOT WOUND SPRING PRODUCTION SUPERVISOR LIPID PANEL WITH DIRECT LDL Routine 01/22/2016 10:17 AM HOT WOUND SPRING PRODUCTION SUPERVISOR COMPREHENSIVE METABOLIC PANEL Routine 01/22/2016 10:17 AM HOT WOUND SPRING PRODUCTION SUPERVISOR CBC W/DIFF AUTOMATED Routine 01/22/2016 10:17 AM HOT WOUND SPRING PRODUCTION SUPERVISOR documented in this encounter Results * HEMOGLOBIN, GLYCOSYLATED (01/22/2016 10:22 AM HOT WOUND SPRING PRODUCTION SUPERVISOR) HGB A1C 5.0 4.2 - 6.5 % HbA1C [facility] TO EPIC CONVERSION 01/22/2016 10:2 2 AM HOT WOUND SPRING PRODUCTION SUPERVISOR 01/22/2016 10:22 AM HOT WOUND SPRING PRODUCTION SUPERVISOR Narrative [facility] TO EPIC CONVERSION - 01/22/2016 10:22 AM HOT WOUND SPRING PRODUCTION SUPERVISOR Result Communication: No patient communication needed at this time us Jerry Fatima MD LABORATORY Final Result [facility] TO EPIC CONVERSION * (ABNORMAL) LIPID PANEL WITH DIRECT LDL (01/22/2016 10:17 AM HOT WOUND SPRING PRODUCTION SUPERVISOR) CHOLESTEROL 214(H) 125 - 200 mg/dL [facility] [...] than LDL cholesterol target. Test Performed at: [facility] [address] [facility] [place] ??[id number] ? ENRICO VALDEZ DO,MPH 01/22/2016 10:1 7 AM HOT WOUND SPRING PRODUCTION SUPERVISOR 01/22/2016 10:17 AM HOT WOUND SPRING PRODUCTION SUPERVISOR Narrative [facility] TO EPIC CONVERSION - 01/23/2016 6:40 AM HOT WOUND SPRING PRODUCTION SUPERVISOR Result Communication: Call patient with results Jerry Fatima MD LABORATORY Final Result [facility] TO EPIC CONVERSION * CBC W/DIFF AUTOMATED (01/22/2016 10:17 AM HOT WOUND SPRING PRODUCTION SUPERVISOR) WBC 9.2 3.8 - 10.8 [facility] TO [...] CONVERSION Comment: Result Comment: Test Performed at: [facility] [id number] [place] [address] ??[phone] ? ENRICO VALDEZ DO,MPH 01/22/2016 10:1 7 AM HOT WOUND SPRING PRODUCTION SUPERVISOR 01/22/2016 10:17 AM HOT WOUND SPRING PRODUCTION SUPERVISOR Narrative [facility] TO EPIC CONVERSION - 01/23/2016 6:40 AM HOT WOUND SPRING PRODUCTION SUPERVISOR Result Communication: No patient communication needed at this time Jerry Fatima MD LABORATORY Final Result [facility] TO EPIC CONVERSION * COMPREHENSIVE METABOLIC PANEL (01/22/2016 10:17 AM HOT WOUND SPRING PRODUCTION SUPERVISOR) [facility] GLUCOSE 94 65 - 99 mg/dL [...] CONVERSION Comment: Result Comment: Test Performed at: [facility] ??[id number] ? ENRICO VALDEZ DO,MPH 01/22/2016 10:1 7 AM HOT WOUND SPRING PRODUCTION SUPERVISOR 01/22/2016 10:17 AM HOT WOUND SPRING PRODUCTION SUPERVISOR Narrative [facility] TO EPIC CONVERSION - 01/23/2016 6:40 AM HOT WOUND SPRING PRODUCTION SUPERVISOR Result Communication: No patient communication needed at this time us Jerry Fatima MD LABORATORY Final Result [facility] TO EPIC CONVERSION documented in this encounter Visit Diagnoses Not on filedocumented in this encounter Care Teams Machine Brush Maker Relationship Specialty Start Date End Date Jerry Fatima MD PCP - General 01/11/15 05/31/18 documented as of this encounter
--- OUTSIDE RECORDS SUMMARY | 2024-03-02 04:03 | XMS_ITS | Encounter Summary ---
Author Organization [facility] Address [address] [place] [address]. [place], [place] [address] [place] [address] Care Team Providers Care Cable Tool Operator Name Role Phone Mo Salamanca MD Primary Care Provider Yan alvarado Encounter Details Date Type Department Care Team (Latest Contact Info) Description 01/12/2015 Abstract [facility] Medical Group , Marge Carreon MD [...] (Report) KWAKU BULLOCK ADMIT/SERVICE DATE: 01/11/15 ACCT: [id number] DISCHARGE DATE: : 1965 SEX: M ORD SITE: [facility] PT TYPE: REG CLI ORDERING MD: MO SALAMANCA MD STUDY DATE REPORT # ORDER # EXT ORDER ID 01/11/15 [id number] PROC CODE: ABDCMP PROCEDURE DESCRIPTION: US ABDOMEN [...] Rosa Hudson, ; Jan 12 2015 12:35PM BINDER CUTTER (Author) documented in this encounter Plan of Treatment Upcoming Encounters Date Type Department Care Team (Late st Contact Info) Description 03/28/2024 7:30 AM BINDER CUTTER Hospital Encounter [facility] [place] [address] Antwan Stone, DIEGO [address], [place] [address] 03/28/2024 7:30 AM BINDER CUTTER Anesthesia Event [place] [address] Shanelle Avila, STEMHOLE BORER AND TOPPER 1 [place] [address] 03/28/2024 7:30 AM BINDER CUTTER - 03/28/2024 8:48 AM BINDER CUTTER Surgery [facility] [place] [address] Antwan Stone DPM [address] [place] [address] REMOVAL OF HARDWARE LEFT FOOT 04/05/2024 8:30 AM BINDER CUTTER Office Visit [facility] THREE [facility], [facility] [address] [place] [address] Dominick Mccloud MD Three [facility]. [facility] [address] [place], [place] [address] Scheduled Procedures Name Priority Associated Diagnoses Date/Ti me REMOVAL PLATE SCREW OR PIN SCHED BY FAX 02/08/24 [facility] PHONE ASSESS 03/28/2024 7:30 AM BINDER CUTTER documented as of this encounter Visit Diagnoses Not on filedocumented in this encounter Care Teams Cable Tool Operator Relationship Specialty Start Date End Date Mo Salamanca MD PCP - General 01/11/15 05/31/18 documented as of this encounter
--- OUTSIDE RECORDS SUMMARY | 2024-03-02 04:03 | XMS_ITS | Encounter Summary ---
Author Organization [facility] Address [address] [place] [address]. [place] [address] [place] [address] Care Team Providers Care Learning Support Aide Name Role Phone Clara Stanley Primary Care Provider +[phone] Reason for Visit * Reason Onset Date Comments Insurance Pre-cert 03/04/2019 Encounter Details Date Type Department Care Team (Late st Contact Info) Description 03/04/2019 Telephone [facility] at [facility], [facility] [address] [place], [place] [address] Antwan Milton MD [facility]. [facility] [address] [place] [address] Insurance Pre-cert Social History Tobacco [...] 10:47 AM CST I called Scott at [phone] to get a pre-cert for CPT code: 96238. They ran the benefits and said that the benefits were only for this year and I would need to call back in March to obtain a pre-cert. LOPE STUFFER documented in this encounter Plan of Treatment Upcoming Encounters Date Type Department Care Team (Late st Contact Info) Description 03/28/2024 7:30 AM ENVELOPE STUFFER Hospital Encounter [facility] [place] [address] Antwan Stone, DIEGO [address], [place] [address] 03/28/2024 7:30 AM ENVELOPE STUFFER Anesthesia Event [place] [address] Shanelle Avila, MANAGER SEARCH ENGINE 1 [place] [address] 03/28/2024 7:30 AM ENVELOPE STUFFER - 03/28/2024 8:48 AM ENVELOPE STUFFER Surgery [place] [address] Antwan Stone, DIEGO [address], [place] [address] REMOVAL OF HARDWARE LEFT FOOT 04/05/2024 8:30 AM ENVELOPE STUFFER Office Visit [facility]ren Chaudh[facility]-O'F johnn THREE [facility], [facility] [address] [place] [address] Dominick Mccloud MD Three [facility]. [facility] [address] [place] [address] Scheduled Procedures Name Priority Associated Diagnoses Date/Ti me REMOVAL PLATE SCREW OR PIN SCHED BY FAX 02/08/24 KAYLIE PHONE ASSESS 03/28/2024 7:30 AM ENVELOPE STUFFER documented as of this encounter Visit Diagnoses Not on filedocumented in this encounter Care Teams Learning Support Aide Relationship Specialty Start Date End Date Clara Stanley APNP [address] [place] [address] PCP - General NURSE PRACTITIONER 06/01/18 documented as of this encounter
--- OUTSIDE RECORDS SUMMARY | 2024-03-02 04:03 | XMS_ITS | Encounter Summary ---
Author Organization [facility] Address [address] [place] [address]. [place], [place] [address] [place] [address] Care Team Providers Care Still Runner Name Role Phone Clara Stanley Primary Care Provider [phone] Reason for Visit * Reason Onset Date Comments Appointment Request 02/08/2019 Encounter Details Date Type Department Care Team (Late st Contact Info) Description 02/08/2019 Telephone [facility] at [facility], [facility] [address] [place], [place] [address] Antwan Milton MD [facility]. [facility] [address] [place] [address] Appointment Request Social History Tobacco [...] call the office to make an appointment. ORATE LAW SPECIALIST documented in this encounter Plan of Treatment Upcoming Encounters Date Type Department Care Team (Late st Contact Info) Description 03/28/2024 7:30 AM CORPORATE LAW SPECIALIST Hospital Encounter [facility] [place] [address] Antwan Stone, DPÁngel [address], [place] [address] 03/28/2024 7:30 AM CORPORATE LAW SPECIALIST Anesthesia [place] [address] Shanelle Avila, ASSISTANT CHILD CARE TEACHER [address] [place] [address] 03/28/2024 7:30 AM CORPORATE LAW SPECIALIST - 03/28/2024 8:48 AM CORPORATE LAW SPECIALIST [place] [address] Antwan Stone, DIEGO [address], [place] [address] REMOVAL OF HARDWARE LEFT FOOT 04/05/2024 8:30 AM CORPORATE LAW SPECIALIST Office Visit Darren Chaudh[facility]-O'F allon THREE [facility], [facility] [address] [place], [place] [address] Dominick Mccloud MD Three [facility]. [facility] [address] [place] [address] Scheduled Procedures Name Priority Associated Diagnoses Date/Ti me REMOVAL PLATE SCREW OR PIN SCHED BY FAX 02/08/24 [facility] PHONE ASSESS 03/28/2024 7:30 AM CORPORATE LAW SPECIALIST documented as of this encounter Visit Diagnoses Not on filedocumented in this encounter Care Teams Still Runner Relationship Specialty Start Date End Date Clara Stanley APNP [address] [place] [address] PCP - General NURSE PRACTITIONER 06/01/18 documented as of this encounter
--- OUTSIDE RECORDS SUMMARY | 2024-03-02 04:03 | XMS_ITS | Encounter Summary ---
Author Organization [facility] Address [address] [place] [address]. [place], [place] [address] [place] [address] Care Team Providers Care Hearing Therapy Teacher Name Role Phone Clara Stanley Primary Care Provider +1 [phone] Reason for Visit * Reason Onset Date Comments Lab Results 06/09/2018 Encounter Details Date Type Department Care Team (Late st Contact Info) Description 06/09/2018 Telephone [facility] Medical Group Family & Internal Medicine [place] [address] [place] [address] Clara Stanley APNP [facility] [place] [address] Lab Results Social History Tobacco [...] AM [facility] Hospital Encounter [facility] [place] [address] Antwan Stone DPM [address], [place] [address] 03/28/2024 7:30 AM SHIP PILOT DISPATCHER Anesthesia Event [facility] [place] [address] Shanelle Avila, SOUND SYSTEM INSTALLER 1 [place] [address] 03/28/2024 7:30 AM SHIP PILOT DISPATCHER - 03/28/2024 8:48 AM SHIP PILOT DISPATCHER Surgery [facility] OR [address] [facility] [place] [address] Antwan Stone DPM [address], [place] [address] REMOVAL OF HARDWARE LEFT FOOT 04/05/2024 8:30 AM SHIP PILOT DISPATCHER Office Visit Darren Chaudhari-Omar'F johnn THREE [facility], [facility] [address] [place] [address] Dominick Mccloud MD Three [facility]. [facility] [address] [place] [address] Scheduled Procedures Name Priority Associated Diagnoses Date/Ti me REMOVAL PLATE SCREW OR PIN SCHED BY FAX 02/08/24 [facility] PHONE ASSESS 03/28/2024 7:30 AM SHIP PILOT DISPATCHER documented as of this encounter Results * HEMOGLOBIN, GLYCOSYLATED (06/08/2018 10:57 AM CDT) HGB A1C 5.5 4.2 - 6.3 % 06/09/2018 5:38 PM CDT [facility] Comment: ADA GUIDELINES 2010 5.7 TO 6.4% INCREASED RISK OF DIABETES > OR = 6.5% CONSISTENT WITH DIABETES ESTIMATED AVG GLUCOSE 111 mg/dL 06/09/2018 5:38 PM CDT [facility] 06/08/2018 10:5 7 AM CDT [facility] Final Resul t [facility] [address] [place] [address], [place] [phone] documented in this encounter Visit Diagnoses Diagnosis Hyperglycemia- Primary Other abnormal glucose Painful orthopaedic hardware (CMS/HCC)- Primary documented in this encounter Care Teams Hearing Therapy Teacher Relationship Specialty Start Date End Date Clara Stanley APNP [facility] [place] [address] PCP - General NURSE PRACTITIONER 06/01/18 documented as of this encounter
--- OUTSIDE RECORDS SUMMARY | 2024-03-02 04:03 | XMS_ITS | Encounter Summary ---
Author Organization [facility] Address [address] [place] [address]. [place], [place] [address] [place] [address] Care Team Providers Care Sr. Director Name Role Phone Jerry Fatima MD Primary Care Provider Yan alvarado Encounter Details Date Type Department Care Team (Latest Contact Info) Description 01/30/2016 Abstract [facility] Medical Group Social History [...] Name: Call Patient with results Assigned To: [facility] Kushal Regarding Patient: Kwaku Kulkarni, Status: In Progress Comment: Jerry Fatima - 24 Jan 2016 6:25 AM Patient Jadyn Riley - 24 Jan 2016 2:12 PM TASK REASSIGNED: Previously Assigned To Jerry Fatima Sarah - 24 Jan 2016 2:14 PM TASK REASSIGNED: Previously Assigned To Jerry Fatima Sarah - 24 Jan 2016 5:14 PM TASK REASSIGNED: Previously Assigned To [facility] Odell Fatima patient has not been taking [...] For: Hyperlipidemia; PADMINI = N; Sent To: [facility] # [id number]; Last Updated By: Paulina Marroquin 2. QU-AST 822; Status:Hold For - Manual Activation; Requested for:30Jan2016; Perform:[facility]; Due:64Yhm7712;Ordered; For:Hyperlipidemia; Ordered By:Jerry Fatima; 3. QU-CREATINE KINASE, TOTAL 374; Status:Hold For - Manual Activation; Requested for:30Jan2016; Perform:[facility]; Due:69Iho4113;Ordered; For:Hyperlipidemia; Ordered By:Jerry Fatima; 4. QU-LIPID PANEL 7600; Status:Hold For - Manual Activation; Requested for:30Jan2016; Perform:[facility]; Due:16Iwb7317;Ordered; For:Hyperlipidemia; Ordered By:Jerry Fatima; Signatures Electronically signed by : Paulina Marroquin R.N.; Feb 04 2016 7:50AM HYDROLOGY TEACHER (Author) documented in this encounter Plan of Treatment Upcoming Encounters Date Type Department Care Team (Late st Contact Info) Description 03/28/2024 7:30 AM HYDROLOGY TEACHER Hospital Encounter [facility] [place] [address] Antwan Stone DPM [address], [place] [address] 03/28/2024 7:30 AM HYDROLOGY TEACHER Anesthesia Event [facility] [address] Shanelle Avila, REGIONAL OWNER OPERATOR TRUCK DRIVER 1 [place] [address] 03/28/2024 7:30 AM HYDROLOGY TEACHER - 03/28/2024 8:48 AM HYDROLOGY TEACHER Surgery [facility] [address] Antwan Stone, DIEGO [address], [place] [address] REMOVAL OF HARDWARE LEFT FOOT 04/05/2024 8:30 AM HYDROLOGY TEACHER Office Visit [facility] THREE [facility], [facility] [address] [place] [address] Dominick Mccloud MD Three [facility]. [facility] [address] [place] [address] Scheduled Procedures Name Priority Associated Diagnoses Date/Ti me REMOVAL PLATE SCREW OR PIN SCHED BY FAX 02/08/24 [facility] PHONE ASSESS 03/28/2024 7:30 AM HYDROLOGY TEACHER documented as of this encounter Visit Diagnoses Not on filedocumented in this encounter Care Teams Sr. Director Relationship Specialty Start Date End Date Jerry Fatima MD PCP - General 01/11/15 05/31/18 documented as of this encounter
--- OUTSIDE RECORDS SUMMARY | 2024-03-02 04:03 | XMS_ITS | Encounter Summary ---
Author Organization [facility] Address [address] [place] [address]. [place], [place] [address] [place] [address] Care Team Providers Care Jewelry Polisher Name Role Phone Jerry Fatima MD Primary Care Provider Yan alvarado Encounter Details Date Type Department Care Team (Late st Contact Info) Description 08/09/2014 Abstract [facility] Clinics Conversion Md, Generic Conversion, Social History [...] vege increase Depression and anxiety- start prozac [facility], discussed this at [facility] with him and his . Walk 4-5days per week. Hyperlipidemia-Check lipids, I will call him with results. Marjan Lai APN Electronically signed by: Marjan Lai Date: 08/09/2014 16:34 ECTOR WREATH documented in this encounter Plan of Treatment Upcoming Encounters Date Type Department Care Team (Late st Contact Info) Description 03/28/2024 7:30 AM INSPECTOR WREATH Hospital Encounter [facility] [place] [address] Antwan Stone, DIEGO [address], [place] [address] 03/28/2024 7:30 AM INSPECTOR WREATH Anesthesia Event [facility] [place] [address] Shanelle Avila, BANANA ROOM CUTTER 1 [place] [address] 03/28/2024 7:30 AM INSPECTOR WREATH - 03/28/2024 8:48 AM INSPECTOR WREATH Surgery [facility] [place] [address] Antwan Stone DPM [address] [place] [address] REMOVAL OF HARDWARE LEFT FOOT 04/05/2024 8:30 AM INSPECTOR WREATH Office Visit [facility]O'F allon THREE [facility], [facility] [address] [place] [address] Dominick Mccloud MD Three [facility]. [facility] [address] [place] [address] Scheduled Procedures Name Priority Associated Diagnoses Date/Ti me REMOVAL PLATE SCREW OR PIN SCHED BY FAX 02/08/24 KAYLIE PHONE ASSESS 03/28/2024 7:30 AM INSPECTOR WREATH documented as of this encounter Visit Diagnoses Not on filedocumented in this encounter Care Teams Jewelry Polisher Relationship Specialty Start Date End Date Jerry Fatima MD PCP - General 01/11/15 05/31/18 documented as of this encounter
--- OUTSIDE RECORDS SUMMARY | 2024-03-02 04:03 | XMS_ITS | Encounter Summary ---
Author Organization [facility] Address [address] [place] [address]. [place], [place] [address] [place] [address] Care Team Providers Care Ledge Man Name Role Phone Lizeth Clara CARRINGTON Primary Care Provider [phone] Encounter Details Date Type Department Care Team [...] st Contact Info) Description 03/28/2024 7:30 AM REGISTERED DENTAL HYGIENIST Hospital Encounter [facility] [place] [address] Antwan Stone DPM [address], [place] [address] 03/28/2024 7:30 AM REGISTERED DENTAL HYGIENIST Anesthesia Event [facility] [place] [address] Shanelle Avila, CLIENT RELATIONS REPRESENTATIVE [address] [place] [address] 03/28/2024 7:30 AM REGISTERED DENTAL HYGIENIST - 03/28/2024 8:48 AM REGISTERED DENTAL HYGIENIST Surgery [facility] [place] [address] Antwan Stone, DPÁngel [address], [place] [address] REMOVAL OF HARDWARE LEFT FOOT 04/05/2024 8:30 AM REGISTERED DENTAL HYGIENIST Office Visit Darren Chaudhari-O'F allon [facility] [address] [place] [address] Dominick Mccloud MD Three [facility]. [facility] [address] [place] [address] Scheduled Procedures Name Priority Associated Diagnoses Date/Ti me REMOVAL PLATE SCREW OR PIN SCHED BY FAX 02/08/24 [facility] PHONE ASSESS 03/28/2024 7:30 AM REGISTERED DENTAL HYGIENIST documented as of this encounter Visit Diagnoses Not on filedocumented in this encounter Care Teams Ledge Man Relationship Specialty Start Date End Date Clara Stanley APNP [address] [place] [address] PCP - General NURSE PRACTITIONER 06/01/18 documented as of this encounter
--- OUTSIDE RECORDS SUMMARY | 2024-03-02 04:03 | XMS_ITS | Encounter Summary ---
Author Organization [facility] Address [address] [place] [address]. [place], [place] [address] [place] [address] Care Team Providers Care Release And Technical Records Clerk Name Role Phone Jerry Fatima MD Primary Care Provider Yan alvarado Encounter Details Date Type Department Care Team (Latest Contact Info) Description 02/21/2015 Abstract [facility] Medical Group Social History [...] st Contact Info) Description 03/28/2024 7:30 AM BRONC BUSTER Hospital Encounter [facility] [place] [address] Antwan Stone, DIEGO [address], [place] [address] 03/28/2024 7:30 AM BRONC BUSTER Anesthesia Event [facility] [place] [address] Shanelle Avila, PHYSICAL THERAPIST AIDE 1 [place] [address] 03/28/2024 7:30 AM BRONC BUSTER - 03/28/2024 8:48 AM BRONC BUSTER Surgery [facility] [place] [address] Antwan Stone DPM [address], [place] [address] REMOVAL OF HARDWARE LEFT FOOT 04/05/2024 8:30 AM BRONC BUSTER Office Visit Darren Chaudhari-O'F allon THREE [facility], [facility] [address] [place] [address] Dominick Mccloud MD Three [facility] [address] [place] [address] Scheduled Procedures Name Priority Associated Diagnoses Date/Ti me REMOVAL PLATE SCREW OR PIN SCHED BY FAX 02/08/24 [facility] PHONE ASSESS 03/28/2024 7:30 AM BRONC BUSTER documented as of this encounter Visit Diagnoses Not on filedocumented in this encounter Care Teams Release And Technical Records Clerk Relationship Specialty Start Date End Date Jerry Fatima MD PCP - General 01/11/15 05/31/18 documented as of this encounter
--- OUTSIDE RECORDS SUMMARY | 2024-03-02 04:03 | XMS_ITS | Encounter Summary ---
Author Organization [facility] Address [address] [place] [address]. [place], [place] [address] [place] [address] Care Team Providers Care Crabbing Machine Operator Name Role Phone Jerry Fatima MD Primary Care Provider Yan alvarado Encounter Details Date Type Department Care Team (Late st Contact Info) Description 09/07/2014 Abstract [facility] Conversion Md, Generic Conversion, Social [...] st Contact Info) Description 03/28/2024 7:30 AM COMPRESSOR HOUSE OPERATOR Hospital Encounter [facility] [place] [address] Antwan Stone, DIEGO [address] [place] [address] 03/28/2024 7:30 AM COMPRESSOR HOUSE OPERATOR Anesthesia Event [facility] [address] Shanelle Avila, MEDICAL RECORDS FIELD TECHNICIAN [address] [place] [address] 03/28/2024 7:30 AM COMPRESSOR HOUSE OPERATOR - 03/28/2024 8:48 AM COMPRESSOR HOUSE OPERATOR Surgery [facility] [place] [address] Antwan Stone DPM [address] [place] [address] REMOVAL OF HARDWARE LEFT FOOT 04/05/2024 8:30 AM COMPRESSOR HOUSE OPERATOR Office Visit Darren Chaudhari-O'F allon THREE [facility], [facility] [address] [place] [address] Dominick Mccloud MD Three [facility]. [facility] [address] [place] [address] Scheduled Procedures Name Priority Associated Diagnoses Date/Ti me REMOVAL PLATE SCREW OR PIN SCHED BY FAX 02/08/24 [facility] PHONE ASSESS 03/28/2024 7:30 AM COMPRESSOR HOUSE OPERATOR documented as of this encounter Visit Diagnoses Not on filedocumented in this encounter Care Teams Crabbing Machine Operator Relationship Specialty Start Date End Date Jerry Fatima MD PCP - General 01/11/15 05/31/18 documented as of this encounter
--- OUTSIDE RECORDS SUMMARY | 2024-03-02 04:03 | XMS_ITS | Encounter Summary ---
Author Organization [facility] Address [address] [place] [address]. [place], [place] [address] [place] [address] Care Team Providers Care Dental Services Director Name Role Phone Clara Stanley Primary Care Provider [phone] Encounter Details Date Type Department Care Team (Latest Contact Info) Description 06/08/2018 6:55 PM CDT - 06/08/2018 11:59 PM CDT Hospital Encounter [facility] [place] [address] Clara Stanley APNP [facility] [place], [place] [id number] Discharge Disposition: Home or Self Care (Routine [...] 7:30 AM [facility] Hospital Encounter [facility] [address] Antwan Stone DPM [address], [place] [address] 03/28/2024 7:30 AM MINI BAR ATTENDANT Anesthesia [place] [address] Shanelle Avila, STEEL BURNER 1 [place] [address] 03/28/2024 7:30 AM MINI BAR ATTENDANT - 03/28/2024 8:48 AM MINI BAR ATTENDANT Surgery [facility] OR [address] [facility] [place] [address] Antwan Stone, DPM [address] [place] [address] REMOVAL OF HARDWARE LEFT FOOT 04/05/2024 8:30 AM MINI BAR ATTENDANT Office Visit Tucker Fara-O'F allon THREE [facility], [facility] [address] [place] [address] Dominick Mccloud MD Three [facility]. [facility] [address] [place] [address] Scheduled Procedures Name Priority Associated Diagnoses Date/Ti me REMOVAL PLATE SCREW OR PIN SCHED BY FAX 02/08/24 [facility] PHONE ASSESS 03/28/2024 7:30 AM MINI BAR ATTENDANT documented as of this encounter Procedures Procedure Name Priority Date/Time Associated Diagnosis Comments TSH W/REFLEX Routine 06/08/2018 10:57 AM CDT Mixed hyperlipidemia Encounter for preventive health examination Morbid obesity ([facility] HHS/HCC) Screening for endocrine disorder Prostate cancer screening PROSTATE SPECIFIC ANTIGEN,TOTAL Routine 06/08/2018 10:57 AM CDT Mixed hyperlipidemia Encounter for preventive health examination Morbid obesity ([facility] HHS/HCC) Screening for endocrine disorder Prostate cancer screening COMPREHENSIVE METABOLIC PANEL Routine 06/08/2018 10:57 AM CDT Mixed hyperlipidemia Encounter for preventive health examination Morbid obesity ([facility] HHS/HCC) Screening for endocrine disorder Prostate cancer screening LIPID PANEL Routine 06/08/2018 10:57 AM CDT Mixed hyperlipidemia Encounter for preventive health examination Morbid obesity ([facility] HHS/HCC) Screening for endocrine disorder Prostate cancer screening CBC W/DIFF AUTOMATED Routine 06/08/2018 10:57 AM CDT Mixed hyperlipidemia Encounter for preventive health examination Morbid obesity ([facility] HHS/HCC) Screening for endocrine disorder Prostate cancer screening URIC ACID BLOOD Routine 06/08/2018 10:57 AM CDT Mixed hyperlipidemia Encounter for preventive health examination Morbid obesity ([facility] HHS/HCC) Screening for endocrine disorder Prostate cancer screening documented in this encounter Results * PSA, TOTAL (06/08/2018 10:57 AM CDT) PSA 1.23 <4.00 NG/ML 06/08/2018 8:09 PM CDT [facility] Comment: Test was performed using the Siemens method. ??Results obtained with other assay methods or kits cannot be used interchangeably with results obtained by the Siemens method. 06/08/2018 10:5 7 AM CDT Clara CARRINGTON LABORATORY Final Resul t [facility] [address] [place] [address], [place] [phone] * URIC ACID BLOOD (06/08/2018 10:57 AM CDT) URIC ACID 6.0 3.5 - 7.2 MG/DL 06/08/2018 8:07 PM CDT [facility] 06/08/2018 10:5 7 AM CDT Clara CARRINGTON LABORATORY Final Resul t [facility] [address] [place] [address], [place] [phone] * TSH W/REFLEX (06/08/2018 10:57 AM CDT) TSH 2.620 0.358 - 3.74 uIU/ML 06/08/2018 8:07 PM CDT [facility] Comment: HIGH DOSES OF BIOTIN MAY INTERFERE WITH THIS TEST RESULT. CORRELATION TO CLINICAL HISTORY AND PRESENTATION RECOMMENDED. FREE T4 NOT INDICATED 06/08/2018 10:5 7 AM CDT us Clara Stanley ZEB LABORATORY Final Resul t [facility] [address] [place] [address], * (ABNORMAL) LIPID PANEL (06/08/2018 10:57 AM CDT) CHOLESTEROL 205(H) <200 MG/DL 06/08/2018 8:07 PM CDT [facility] TRIGLYCERIDES 115 <150 MG/DL 06/08/2018 8:07 PM CDT [facility] HDL 47 >40.0 MG/DL 06/08/2018 8:07 PM CDT [facility] LDL (CALCULATED) 135(H) <100 MG/DL 06/08/2018 8:07 PM CDT [facility] NON HDL CHOLESTEROL 158(H) <130 MG/DL 06/08/2018 8:07 PM CDT [facility] CHOL/HDL RATIO 4.4 0.0 - 4.5 06/08/2018 8:07 PM CDT [facility] VLDL CALCULATION 23 5 - 55 MG/DL 06/08/2018 8:07 PM CDT [facility] LIPID INTERPRETATION 06/08/2018 8:07 PM CDT [facility] Comment: [facility] CON[facility] REPORT RECOMMENDATIONS: [...] us Clara ISABELNP LABORATORY Final Resul t [facility] [address] [place] [address], * (ABNORMAL) COMPREHENSIVE METABOLIC PANEL (06/08/2018 10:57 AM CDT) GLUCOSE 100(H) 70 - 99 MG/DL 06/08/2018 8:07 PM CDT [facility] BUN 10 7 - 18 MG/DL 06/08/2018 8:07 PM CDT [facility] CREATININE S/P/B 0.76 0.7 - 1.3 MG/DL 06/08/2018 8:07 PM CDT [facility] SODIUM S/P/B 139 136 - 145 MMOL/L 06/08/2018 8:07 PM CDT [facility] POTASSIUM S/P/B 4.5 3.5 - 5.1 MMOL/L 06/08/2018 8:07 PM CDT [facility] CHLORIDE S/P/B 108 100 - 108 MMOL/L 06/08/2018 8:07 PM CDT [facility] CO2 23.8 21 - 32 MMOL/L 06/08/2018 8:07 PM CDT [facility] CALCIUM S/P/B 9.3 8.5 - 10.1 MG/DL 06/08/2018 8:07 PM CDT [facility] BILIRUBIN TOTAL S/P/B 0.4 0.2 - 1.2 MG/DL 06/08/2018 8:07 PM CDT [facility] TOTAL PROTEIN S/P/B 7.8 6.4 - 8.2 G/DL 06/08/2018 8:07 PM CDT [facility] ALBUMIN S/P/B 4.1 3.4 - 5.0 G/DL 06/08/2018 8:07 PM CDT [facility] AST 19 15 - 37 U/L 06/08/2018 8:07 PM CDT [facility] ALT 27 16 - 60 U/L 06/08/2018 8:07 PM CDT [facility] ALKALINE PHOSPHATASE S/P/B 102 50 - 136 U/L 06/08/2018 8:07 PM CDT [facility] ANION GAP 11.7 8 - 20 MMOL/L 06/08/2018 8:07 PM CDT [facility] BUN CREATININE RATIO 13.2 6 - 26 06/08/2018 8:07 PM CDT [facility] A/G RATIO 1.1 1.0 - 2.0 RATIO 06/08/2018 8:07 PM CDT [facility] EGFR NON-AFR. AMER. >90 >90 ML/MIN/1.7 3 M2 06/08/2018 8:07 PM CDT [facility] EGFR AFR. AMER. >90 >90 ML/MIN/1.7 3 M2 06/08/2018 8:07 PM CDT [facility] Comment: NOTE: eGFR is not calculated for patients <18 years of age. This is an estimated GFR (CKD EPI) and should not be used for calculating drug doses. 06/08/2018 10:5 7 AM CDT us Clara CARRINGTON LABORATORY Final Resul t [facility] [address] [place] [address], [place] [phone] * (ABNORMAL) CBC W/DIFF AUTOMATED (06/08/2018 10:57 AM CDT) WBC 8.2 4.5 - 11.0 x10'3/uL 06/08/2018 7:43 PM CDT [facility] RBC 5.04 4.70 - 6.10 x10'6/uL 06/08/2018 7:43 PM CDT [facility] HGB 14.7 14.0 - 18.0 G/DL 06/08/2018 7:43 PM CDT [facility] HCT 45.1 43.0 - 54.0 % 06/08/2018 7:43 PM CDT [facility] MCV 89.5 80.0 - 94.0 FL 06/08/2018 7:43 PM CDT [facility] MCH 29.2 27.0 - 31.0 PG 06/08/2018 7:43 PM CDT [facility] MCHC 32.6 32.0 - 36.0 G/DL 06/08/2018 7:43 PM CDT [facility] RDW 13.4 11.5 - 14.5 % 06/08/2018 7:43 PM CDT [facility] PLT 250 130 - 400 x10'3/uL 06/08/2018 7:43 PM CDT [facility] MPV 12.7(H) 9.3 - 12.2 FL 06/08/2018 7:43 PM CDT [facility] DIFFERENTIAL TYPE AUTOMATED DIFFERENTIAL 06/08/2018 7:43 PM CDT [facility] NEUTROPHILS % 70.2 % 06/08/2018 7:43 PM CDT [facility] LYMPHOCYTES % 13.8 % 06/08/2018 7:43 PM CDT [facility] MONOCYTES % 9.4 % 06/08/2018 7:43 PM CDT [facility] EOSINOPHILS 5.5 % 06/08/2018 7:43 PM CDT [facility] BASOPHILS 0.7 % 06/08/2018 7:43 PM CDT [facility] IMMATURE GRANS % 0.4(H) 0 % 06/09/19 19 7:43 PM CDT [facility] ABS. NEUTROPHILS TOTAL 5.74 1.80 - 7.70 x10'3/uL 06/08/2018 7:43 PM CDT [facility] ABS. LYMPHOCYTES 1.13 1.00 - 4.80 x10'3/uL 06/08/2018 7:43 PM CDT [facility] ABS. MONOCYTES 0.77 0.30 - 0.82 x10'3/uL 06/08/2018 7:43 PM CDT [facility] ABS. EOSINOPHILS 0.45 0.04 - 0.54 x10'3/uL 06/08/2018 7:43 PM CDT [facility] ABS. BASOPHILS 0.06 0.01 - 0.08 x10'3/uL 06/08/2018 7:43 PM CDT [facility] ABS. IMMATURE GRANULOCYTES 0.03 0.00 - 0.03 x10'3/uL 06/08/2018 7:43 PM CDT [facility] 06/08/2018 10:5 7 AM CDT Clara CARRINGTON LABORATORY Final Resul t [facility] [address] [place] [address], documented in this encounter Visit Diagnoses Diagnosis Mixed hyperlipidemia Encounter for preventive health examination Routine general medical examination at a health care facility Morbid obesity (CMS/HCC HHS/HCC) Morbid obesity Screening for endocrine disorder Prostate cancer screening Special screening for malignant neoplasm of prostate Painful orthopaedic hardware (CMS/HCC)- Primary documented in this encounter Care Teams Dental Services Director Relationship Specialty Start Date End Date Clara Stanley APNP [address] [place] [address] PCP - General NURSE PRACTITIONER 06/01/18 documented as of this encounter
--- OUTSIDE RECORDS SUMMARY | 2024-03-02 04:03 | XMS_ITS | Encounter Summary ---
Author Organization [facility] Address [address] [place] [address]. [place] [address] [place] [address] Care Team Providers Care Mixed Crop Farmer Name Role Phone Clara Stanley Primary Care Provider Dominick Mccloud MD Unavailable [phone] Alexis Lopez MD Unavailable [phone] Kip Del Rio MD Unavailable [phone] Encounter Details Date Type Department Care Team (Late st Contact Info) Description 06/30/2018 TYPER ONLY [facility] Medical Group Priority Care - [address] [place] [address] Scanned, Documents Social History Tobacco [...] 12:00 AM CDT MP BULLOCK MD: ACCT: [id number] ADMIT/SERVICE DATE: 06/30/18 DISCHARGE DATE: 06/30/18 : 1965 PT TYPE: DEP SDC SEX: M ORD SITE: [facility] CHART DOCUMENT OPERATION RECORD DATE OF OPERATION: [...] SHELLY/CARLOS 06/30/2018 06/30/2018 01:25 P JOB NO: [id number] DOC NO: [id number] CC: MD MARTY ZELAYA NP documented in this encounter Plan of Treatment Upcoming Encounters Date Type Department Care Team (Late st Contact Info) Description 03/28/2024 7:30 AM ELECTROPLATER Hospital Encounter [facility] [place] [address] Antwan Stone DPM [address], [place] [address] 03/28/2024 7:30 AM ELECTROPLATER Anesthesia [place] [address] Shanelle Avila, CUSHION MAKER HAND [address] [place] [address] 03/28/2024 7:30 AM ELECTROPLATER - 03/28/2024 8:48 AM ELECTROPLATER Surgery [facility] [place] [place] [address] Antwan Stone, DPÁngel [address] [place] [address] REMOVAL OF HARDWARE LEFT FOOT 04/05/2024 8:30 AM ELECTROPLATER Office Visit [place] Chaudhari-O'F allon THREE [facility], [facility] [address] [place] [address] Dominick Mccloud MD Three [facility]. [facility] [address] [place] [address] Scheduled Procedures Name Priority Associated Diagnoses Date/Ti me REMOVAL PLATE SCREW OR PIN SCHED BY FAX 02/08/24 [facility] PHONE ASSESS 03/28/2024 7:30 AM ELECTROPLATER documented as of this encounter Visit Diagnoses Not on filedocumented in this encounter Additional Health Concerns Infection Onset Date Last Indicated Resolved Time COVID-19 Rule Out 10/28/2019 10/28/2019 10/30/2019 8:53 AM CDT documented as of this encounter Care Teams Mixed Crop Farmer Relationship Specialty Start Date End Date Clara Stanley APNP [address] [place] [address] PCP - General NURSE PRACTITIONER 06/01/18 Dominick Mccloud MD Three [facility]. [facility] [address] [place] [address] [employer] Cnc Operator CARDIOVASCULAR DISEASE 03/28/19 Alexis Lopez MD [address] [facility] [address] [place], [place] [id number] PULMONARY DISEASE 10/21/19 Kip Del Rio MD [address] [facility] [address] [place] [address] MEDICAL ONCOLOGY 02/24/24 documented as of this encounter
--- OUTSIDE RECORDS SUMMARY | 2024-03-02 04:03 | XMS_ITS | Encounter Summary ---
Author Organization [facility] Address [address] [place] [address]. [place], [place] [address] [place] [address] Care Team Providers Care Health Information Specialist Name Role Phone Jerry Fatima MD Primary Care Provider Yan alvarado Encounter Details Date Type Department Care Team (Late st Contact Info) Description 12/12/2014 Abstract [facility] Medical Group Family & Internal Medicine [address] [phone] Jerry Fatima MD Social History Tobacco Use [...] works well for sleep. TCM: Date of Hospital/[place] Discharge: 12/06/2014 Date of Contact: 12/06/2014 Individual [...] 1. ALPRAZolam 0.5 MG Oral Tablet; Therapy: [id number] to Recorded 2. AmLODIPine Besylate 5 MG Oral Tablet; Therapy: 06Dec2014 to Recorded 3. Atorvastatin Calcium 20 MG Oral Tablet; Therapy: 06Dec2014 to Recorded 4. FLUoxetine HCl - 40 MG Oral Capsule; Therapy: [id number] to Recorded 5. Triamcinolone Acetonide 0.1 % External Lotion; APPLY 2-3 TIMES DAILY TO AFFECTED AREA(S); Therapy: 05Jan2014 to (Last Rx:05Jan2014) Requested for: 05Jan2014 Ordered 6. Zolpidem Tartrate 10 MG Oral Tablet; Therapy: [id number] to Recorded 7. ZyrTEC Allergy 10 MG Oral Tablet; Therapy: (Recorded:[id number]) to Recorded Allergies 1. No Known Drug [...] QU-LIPID PANEL WITH REFLEX TO DIRECT LDL 32437; Status:Active; Requested for:12Dec2014; Perform:[facility]; Due:11Jan2015; Last Updated By:Jadyn Riley; 12/12/2014 2:29:41 PM;Ordered; For:Hyperlipidemia; Ordered By:Jerry Fatima; He will hold off starting any blood pressure medicine and let us know what his readings are. Signatures Electronically signed by : Jerry Fatima M.D.; Dec 12 2014 6:02PM TABLE WORKER PACKAGER (Author) documented in this encounter Plan of Treatment Upcoming Encounters Date Type Department Care Team (Late st Contact Info) Description 03/28/2024 7:30 AM TABLE WORKER PACKAGER Hospital En[facility] [place] [address] Antwan Stone, DIEGO [address], [place] [address] 03/28/2024 7:30 AM TABLE WORKER PACKAGER Anesthesia Event [facility] [address] Shanelle Avila, LAB REP 1 [place] [address] 03/28/2024 7:30 AM TABLE WORKER PACKAGER - 03/28/2024 8:48 AM TABLE WORKER PACKAGER Surgery [facility] [address] Antwan Stone DPM [address], [place] [address] REMOVAL OF HARDWARE LEFT FOOT 04/05/2024 8:30 AM TABLE WORKER PACKAGER Office Visit [facility] THREE [facility], [facility] [address] [place] [address] Dominick Mccloud MD Three [facility]. [facility] [address] [place] [address] Scheduled Procedures Name Priority Associated Diagnoses Date/Ti me REMOVAL PLATE SCREW OR PIN SCHED BY FAX 02/08/24 [facility] PHONE ASSESS 03/28/2024 7:30 AM TABLE WORKER PACKAGER documented as of this encounter Procedures Procedure [...] than LDL cholesterol target. Test Performed at: [facility] ??[id number] ? ENRICO VALDEZ DO,MPH 12/12/2014 2:38 PM CDT 12/12/2014 2:38 PM CDT Narrative [facility] TO EPIC CONVERSION - 12/13/2014 8:07 AM CDT Result Communication: Call patient with results us Jerry Fatima MD LABORATORY Final Result [facility] CONVERSION documented in this encounter Visit Diagnoses Not on filedocumented in this encounter Care Teams Health Information Specialist Relationship Specialty Start Date End Date Jerry Fatima MD PCP - General 01/11/15 05/31/18 documented as of this encounter
--- OUTSIDE RECORDS SUMMARY | 2024-03-02 04:03 | XMS_ITS | Encounter Summary ---
Author Organization [facility] Address [address] [place] [address]. [place] [address] [place] [address] Care Team Providers Care Combination Window Installer Name Role Phone Jerry Fatima MD Primary Care Provider Yan alvraado Encounter Details Date Type Department Care Team (Late st Contact Info) Description 01/11/[address] [facility] [place] [address] Jerry Fatima MD Social History Tobacco Use [...] st Contact Info) Description 03/28/2024 7:30 AM ROUTE CLERK Hospital Encounter [facility] [address] Antwan Stone DPM [address], [place] [address] 03/28/2024 7:30 AM ROUTE CLERK Anesthesia Event [facility] ONE [facility] [place] [address] Shanelle Avila, USER EXPERIENCE DESIGNER 1 [facility] [place] [address] 03/28/2024 7:30 AM ROUTE CLERK - 03/28/2024 8:48 AM ROUTE CLERK [place] [address] Antwan Stone, DPM [address], [place] [address] REMOVAL OF HARDWARE LEFT FOOT 04/05/2024 8:30 AM ROUTE CLERK Office Visit Darren Fara-O'F allon THREE [facility], [facility] [address] [place] [address] Dominick Mccloud MD Three [facility]. [facility] [address] [place] [address] Scheduled Procedures Name Priority Associated Diagnoses Date/Ti me REMOVAL PLATE SCREW OR PIN SCHED BY FAX 02/08/24 [facility] PHONE ASSESS 03/28/2024 7:30 AM ROUTE CLERK documented as of this encounter Visit Diagnoses Diagnosis Abdominal pain Abdominal pain, unspecified site Painful orthopaedic hardware (CMS/HCC)- Primary documented in this encounter Care Teams Combination Window Installer Relationship Specialty Start Date End Date Jerry Fatima MD PCP - General 01/11/15 05/31/18 documented as of this encounter
--- OUTSIDE RECORDS SUMMARY | 2024-03-02 04:03 | XMS_ITS | Encounter Summary ---
Author Organization [facility] Address [address] [place] [address]. [place], [place] [address] [place] [address] Care Team Providers Care Side Seam Machine Operator Name Role Phone Jerry Fatima MD Primary Care Provider Yan alvarado Encounter Details Date Type Department Care Team (Latest Contact Info) Description 02/13/[address] [facility] Social History Tobacco Use Types [...] st Contact Info) Description 03/28/2024 7:30 AM ARTISTIC DIRECTOR Hospital Encounter [facility] [place] [address] Antwan Stone DPM [address] [facility] [place] [address] 03/28/2024 7:30 AM ARTISTIC DIRECTOR Anesthesia Event [place] [address] Shanelle Avila, SUPERVISOR TRAVEL TRAILER 1 [place] [address] 03/28/2024 7:30 AM ARTISTIC DIRECTOR - 03/28/2024 8:48 AM ARTISTIC DIRECTOR Surgery [place] [address] Antwan Stone, DPM [address], [place] [address] REMOVAL OF HARDWARE LEFT FOOT 04/05/2024 8:30 AM ARTISTIC DIRECTOR Office Visit [facility] [facility] THREE [facility], [facility] [address] [place] [address] Dominick Mccloud MD Three [facility]. [facility] [address] [place] [address] Scheduled Procedures Name Priority Associated Diagnoses Date/Ti me REMOVAL PLATE SCREW OR PIN SCHED BY FAX 02/08/24 [facility] PHONE ASSESS 03/28/2024 7:30 AM ARTISTIC DIRECTOR documented as of this encounter Visit Diagnoses Not on filedocumented in this encounter Care Teams Side Seam Machine Operator Relationship Specialty Start Date End Date Jerry Fatima MD PCP - General 01/11/15 05/31/18 documented as of this encounter
--- OUTSIDE RECORDS SUMMARY | 2024-03-02 04:03 | XMS_ITS | Encounter Summary ---
Author Organization [facility] Address [address] [place] [address]. [place], [place] [address] [place] [address] Care Team Providers Care Electronic Service Technician Name Role Phone Jerry Fatima MD Primary Care Provider Yan alvarado Encounter Details Date Type Department Care Team (Latest Contact Info) Description 02/13/2016 Abstract [facility] Social History Tobacco [...] st Contact Info) Description 03/28/2024 7:30 AM PROFILE STITCHING 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 Hospital Encounter [place] [address] Antwan Stone, DIEGO [address], [place] [address] 03/28/2024 7:30 AM PROFILE STITCHING 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 Anesthesia Event [place] [address] Shanelle Avila, BROOM WORKER 1 [place] [address] 03/28/2024 7:30 AM PROFILE STITCHING 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 - 03/28/2024 8:48 AM PROFILE STITCHING 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 Surgery [facility] [place] [address] Antwan Stone DPM [address], [place] [address] REMOVAL OF HARDWARE LEFT FOOT 04/05/2024 8:30 AM PROFILE STITCHING 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 Office Visit Darren Chaudhari-O'F allon THREE [facility], [facility] [address] [place] [address] Dominick Mccloud MD Three [facility]. [facility] [address] [place] [address] Scheduled Procedures Name Priority Associated Diagnoses Date/Ti me REMOVAL PLATE SCREW OR PIN SCHED BY FAX 02/08/24 [facility] PHONE ASSESS 03/28/2024 7:30 AM PROFILE STITCHING 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 documented as of this encounter Visit Diagnoses Not on filedocumented in this encounter Care Teams Electronic Service Technician Relationship Specialty Start Date End Date Jerry Fatima MD PCP - General 01/11/15 05/31/18 documented as of this encounter
--- OUTSIDE RECORDS SUMMARY | 2024-03-02 04:03 | XMS_ITS | Encounter Summary ---
Author Organization [facility] Address [address] [place] [address]. [place], [place] [address] [place] [address] Care Team Providers Care Silversmith Apprentice Name Role Phone Jerry Fatima MD Primary Care Provider Yan alvarado Encounter Details Date Type Department Care Team (Latest Contact Info) Description 01/19/2018 Scan [facility] Medical [facility] , Marge Carreon MD Social [...] st Contact Info) Description 03/28/2024 7:30 AM INSPECTING AND TESTING LEAD HAND Hospital Encounter [facility] [place] [address] Antwan Stone, DIEGO [address] [place] [address] 03/28/2024 7:30 AM INSPECTING AND TESTING LEAD HAND Anesthesia Event [place] [address] Shanelle Avila, BEVEL POLISHER 1 [place] [address] 03/28/2024 7:30 AM INSPECTING AND TESTING LEAD HAND - 03/28/2024 8:48 AM INSPECTING AND TESTING LEAD HAND Surgery [facility] [place] [address] Antwan Stone DPM [address], [place] [address] REMOVAL OF HARDWARE LEFT FOOT 04/05/2024 8:30 AM INSPECTING AND TESTING LEAD HAND Office Visit Darren Chaudhari-O'F allon THREE [facility], [facility] [address] [place] [address] Dominick Mccloud MD Three [facility]. [facility], [place] [address] [place] [address] Scheduled Procedures Name Priority Associated Diagnoses Date/Ti me REMOVAL PLATE SCREW OR PIN SCHED BY FAX 02/08/24 [facility] PHONE ASSESS 03/28/2024 7:30 AM INSPECTING AND TESTING LEAD HAND documented as of this encounter Visit Diagnoses Not on filedocumented in this encounter Care Teams Silversmith Apprentice Relationship Specialty Start Date End Date Jerry Fatima MD PCP - General 01/11/15 05/31/18 documented as of this encounter
--- OUTSIDE RECORDS SUMMARY | 2024-03-02 04:03 | XMS_ITS | Encounter Summary ---
Author Organization [facility] Address [address] [place] [address]. [place] [address] [place] [address] Care Team Providers Care Multiple Coil Winder Name Role Phone LizethClara Primary Care Provider +1 [phone] Encounter Details Date Type Department Care Team (Late st Contact Info) Description 06/28/2018 Orders Only [facility] Priority Care - Kenia Shrestha [address] [place] [address] Ting Delgado MD [address] [id number] Social History Tobacco Use Types Packs/Day Years [...] (Late Contact Info) Description 03/28/2024 7:30 AM [facility] Hospital Encounter [facility] [place] [address] Antwan Stone, DIEGO [address], [place] [address] 03/28/2024 7:30 AM STAKES PLAYER Anesthesia Event [place] [address] Shanelle Avila, CRUTCHER HELPER 1 [place] [address] 03/28/2024 7:30 AM STAKES PLAYER - 03/28/2024 8:48 AM STAKES PLAYER Surgery [place] [address] Antwan cruz, DIEGO [address], [place] [address] REMOVAL OF HARDWARE LEFT FOOT 04/05/2024 8:30 AM STAKES PLAYER Office Visit Darren Chaudhari-O'F allon THREE [facility], [facility] [address] [place] [address] Dominick Mccloud MD Three [facility]. [facility] [address] [place] [address] Scheduled Procedures Name Priority Associated Diagnoses Date/Ti me REMOVAL PLATE SCREW OR PIN SCHED BY FAX 02/08/24 J[facility]AN[facility] PHONE ASSESS 03/28/2024 7:30 AM STAKES PLAYER documented as of this encounter Procedures Procedure Name Priority Date/Time Associated Diagnosis Comments CARDIOLOGY GENERIC 06/28/2018 2: 37 PM CDT documented in this encounter Results * CARDIOLOGY GENERIC (06/28/2018 2:37 PM CDT) 06/28/2018 2:37 PM CDT Narrative [facility] RAD - 06/28/2018 12:00 AM CDT ? MP BULLOCK MD: ITNG DELGADO MD ?? ACCT: [id number] ?? ADMIT/SERVICE DATE: 06/28/18 DISCHARGE DATE: ?? : 1965 PT TYPE: REG CLI ?? SEX: M ORD SITE: [facility] ?TEST DATE: ?2018-06-28 ?? PAT NAME: ? MP HELLERUGHERTY ?DEPARTMENT: CARD ? ROOM: ? GENDER: ? MALE ? CHARTING CLERK: ? : ?1965 ? REQUESTED BY: TING DELGADO ?? ORDER NUMBER: [id number] ?READING MD: ?? REBEKA SHANKAR ?MEASUREMENTS ?? INTERVALS ?AXIS ? RATE: ? 72 ? P: ?1 ?? [place]: ? 197 ?QRS: ?-8 ?? QRSD: ? 102 ?T: ?60 ?? QT: ? 382 ? QTC: ?419 ?INTERPRETIVE STATEMENTS ?? SINUS RHYTHM ?? INCOMPLETE RIGHT BUNDLE BRANCH BLOCK ? NO PREVIOUS ECG AVAILABLE FOR COMPARISON ?? ELECTRONICALLY SIGNED BY REBEKA SHANKAR AT 06-28-2018 18:09:24 CDT ? Procedure Note Rebeka Shankar MD - 06/28/2018 MP BULLOCK ORDERING MD: TING DELGADO MD ACCT: [id number] ADMIT/SERVICE DATE: 06/28/18 DISCHARGE DATE: : 1965 PT TYPE: REG CLI SEX: M ORD SITE: [facility] TEST DATE: 2018-06-28 PAT NAME: MP BULLOCK DEPARTMENT: CARD ROOM: GENDER: MALE CHARTING CLERK: : 1965 REQUESTED BY: TING DELGADO ORDER NUMBER: [id number] READING MD: REBEKA SHANKAR MEASUREMENTS INTERVALS AXIS RATE: 72 P: 1 [place]: 197 QRS: -8 QRSD: 102 T: 60 QT: 382 QTC: 419 INTERPRETIVE STATEMENTS SINUS RHYTHM INCOMPLETE RIGHT BUNDLE BRANCH BLOCK NO PREVIOUS ECG AVAILABLE FOR COMPARISON ELECTRONICALLY SIGNED BY REBEKA SHANKAR AT 06-28-2018 18:09:24 CDT us Ting Delgado MD [facility] Final Result Performing Organization Address City/State/[facility] Co de Phone Number [facility] RAD documented in this encounter Visit Diagnoses Not on filedocumented in this encounter Care Teams Multiple Coil Winder Relationship Specialty Start Date End Date Clara Stanley APNP [address] [place] [address] PCP - General NURSE PRACTITIONER 06/01/18 documented as of this encounter
--- OUTSIDE RECORDS SUMMARY | 2024-03-02 04:03 | XMS_ITS | Encounter Summary ---
Author Organization [facility] Address [address] [place] [address]. [place], [place] [address] [place] [address] Care Team Providers Care Forder Operator Name Role Phone Jerry Fatima MD Primary Care Provider Yan alvarado Encounter Details Date Type Department Care Team (Latest Contact Info) Description 01/08/2015 Abstract [facility] Medical [facility] Social History Tobacco Use Types [...] Contact Info) Description 03/28/2024 7:30 AM QUALITY MANAGEMENT COORDINATOR Hospital Encounter [place] [address] Antwan Stone, DIEGO [address], [place] [address] 03/28/2024 7:30 AM QUALITY MANAGEMENT COORDINATOR Anesthesia Event [place] [address] Shanelle Avila, FREELANCE DIRECTOR 1 [place] [address] 03/28/2024 7:30 AM QUALITY MANAGEMENT COORDINATOR - 03/28/2024 8:48 AM QUALITY MANAGEMENT COORDINATOR Surgery [place] [place] [address] Antwan Stone DPM [address], [place] [address] REMOVAL OF HARDWARE LEFT FOOT 04/05/2024 8:30 AM QUALITY MANAGEMENT COORDINATOR Office Visit Darren Chaudhari-O'F allon THREE [facility], [facility] [address] [place] [address] Dominick Mccloud MD Three [facility]. [facility] [address] [place] [address] Scheduled Procedures Name Priority Associated Diagnoses Date/Ti me REMOVAL PLATE SCREW OR PIN SCHED BY FAX 02/08/24 [facility] PHONE ASSESS 03/28/2024 7:30 AM QUALITY MANAGEMENT COORDINATOR documented as of this encounter Visit Diagnoses Not on filedocumented in this encounter Care Teams Forder Operator Relationship Specialty Start Date End Date Jerry Fatima MD PCP - General 01/11/15 05/31/18 documented as of this encounter
--- OUTSIDE RECORDS SUMMARY | 2024-03-02 04:03 | XMS_ITS | Encounter Summary ---
Author Organization [facility] Address [address] [place] [address]. [place], [place] [address] [place] [address] Care Team Providers Care Commercial Escrow Assistant Name Role Phone Jerry Fatima MD Primary Care Provider Yan alvarado Encounter Details Date Type Department Care Team (Late st Contact Info) Description 09/13/2014 Abstract [facility] Conversion Md, Generic Conversion, [...] and sleeping meds. Go over BW from [employer]. Pt states the medicine has made him [...] understanding. Marjan Lai APN Electronically signed by: Marjan Lai Date: 09/14/2014 15:40 ENSATOR WORKER documented in this encounter Plan of Treatment Upcoming Encounters Date Type Department Care Team (Late st Contact Info) Description 03/28/2024 7:30 AM COMPENSATOR WORKER Hospital Encounter [facility] [place] [address] Antwan Stone DPM [address] [place] [address] 03/28/2024 7:30 AM COMPENSATOR WORKER Anesthesia [place] [address] Shanelle Avila, PILLAR WORKER 1 [place] [address] 03/28/2024 7:30 AM COMPENSATOR WORKER - 03/28/2024 8:48 AM COMPENSATOR WORKER [place] [address] Antwan Stone DPM [address] [place] [address] REMOVAL OF HARDWARE LEFT FOOT 04/05/2024 8:30 AM COMPENSATOR WORKER Office Visit Darren Chaudhari-O'F allon THREE [facility], [place] [address] [place] [address] Dominick Mccloud MD Three [facility]. [facility] [address] [place] [address] Scheduled Procedures Name Priority Associated Diagnoses Date/Ti me REMOVAL PLATE SCREW OR PIN SCHED BY FAX 02/08/24 [facility] PHONE ASSESS 03/28/2024 7:30 AM COMPENSATOR WORKER documented as of this encounter Visit Diagnoses Not on filedocumented in this encounter Care Teams Commercial Escrow Assistant Relationship Specialty Start Date End Date Jerry Fatima MD PCP - General 01/11/15 05/31/18 documented as of this encounter
--- OUTSIDE RECORDS SUMMARY | 2024-03-02 04:03 | XMS_ITS | Encounter Summary ---
Author Organization [facility] Address [address] [place] [address]. [place], [place] [address] [place] [address] Care Team Providers Care Motorized Squad Captain Name Role Phone Jerry Fatima MD Primary Care Provider Yan alvarado Encounter Details Date Type Department Care Team (Latest Contact Info) Description 01/06/2014 Abstract [facility] Social History Tobacco Use [...] 7:30 AM [facility] Hospital Encounter [facility] [place] [address] Antwan Stone, DIEGO [address] [place] [address] 03/28/2024 7:30 AM TEENAGE PROGRAM DIRECTOR [place]esthesia [place] [address] Shanelle Avila, AFRICANA STUDIES PROFESSOR 1 [place] [address] 03/28/2024 7:30 AM TEENAGE PROGRAM DIRECTOR - 03/28/2024 8:48 AM TEENAGE PROGRAM DIRECTOR Surgery [place] [address] Antwan Stone, DIEGO [address] [place] [address] REMOVAL OF HARDWARE LEFT FOOT 04/05/2024 8:30 AM TEENAGE PROGRAM DIRECTOR Office Visit [facility] THREE [facility], [facility] [address] [place] [address] Dominick Mccluod MD Three [facility]. [facility] [address] [place] [address] Scheduled Procedures Name Priority Associated Diagnoses Date/Ti me REMOVAL PLATE SCREW OR PIN SCHED BY FAX 02/08/24 [facility] PHONE ASSESS 03/28/2024 7:30 AM TEENAGE PROGRAM DIRECTOR documented as of this encounter Visit Diagnoses Not on filedocumented in this encounter Care Teams Motorized Squad Captain Relationship Specialty Start Date End Date Jerry Fatima MD PCP - General 01/11/15 05/31/18 documented as of this encounter
--- OUTSIDE RECORDS SUMMARY | 2024-03-02 04:03 | XMS_ITS | Encounter Summary ---
Author Organization [facility] Address [address] [place] [address]. [place], [place] [address] [place] [address] Care Team Providers Care Industrial Insulator Name Role Phone Jerry Fatima MD Primary [...] st Contact Info) Description 03/28/2024 7:30 AM SUPERVISOR METAL HANGING Hospital Encounter [facility] [place] [address] Antwan Stone, DIEGO [address] [place], [place] [address] 03/28/2024 7:30 AM SUPERVISOR METAL HANGING Anesthesia Event [place] [address] Shanelle Avila, FIELD RING ASSEMBLER 1 [place] [address] 03/28/2024 7:30 AM SUPERVISOR METAL HANGING - 03/28/2024 8:48 AM SUPERVISOR METAL HANGING Surgery [facility] OR [facility] [place] [address] Antwan Stone DPM [address], [place] [address] REMOVAL OF HARDWARE LEFT FOOT 04/05/2024 8:30 AM SUPERVISOR METAL HANGING Office Visit Darren Chaudhari-O'F allon THREE [facility], [facility] [address] [place] [address] Dominick Mccloud MD Three [facility]. [facility] [address] [place] [address] Scheduled Procedures Name Priority Associated Diagnoses Date/Ti me REMOVAL PLATE SCREW OR PIN SCHED BY FAX 02/08/24 [facility] PHONE ASSESS 03/28/2024 7:30 AM SUPERVISOR METAL HANGING documented as of this encounter Visit Diagnoses Not on filedocumented in this encounter Care Teams Industrial Insulator Relationship Specialty Start Date End Date Jerry Fatima MD PCP - General 01/11/15 05/31/18 documented as of this encounter
--- OUTSIDE RECORDS SUMMARY | 2024-03-02 04:03 | XMS_ITS | Encounter Summary ---
Author Organization [facility] Address [address] [place] [address]. [place], [place] [address] [place] [address] Care Team Providers Care Distribution Associate Name Role Phone Clara Stanley Ricardo CARRINGTON Primary Care Provider +[phone] Reason for Visit * Reason Comments Form (SCAN) [facility] SCHEDULING FORM Office Documentation (SCAN)* PATIENT [facility] Encounter Details Date Type Department Care Team (Late st Contact Info) Description 06/18/2018 Scan [facility] Scanned, Documents Form (SCAN) ([facility] SCHEDULING FORM); Office Documentation (SCAN)* (PATIENT DEMOGRAPHICS) [...] [facility] Hospital Encounter [facility] [place] [address] Antwan Stone, DPM [address] [place], [place] [address] 03/28/2024 7:30 AM SURGEON/PRESIDENT Anesthesia Event [place] [address] Shanelle Avila, A&P TECHNICIAN 1 [place] [address] 03/28/2024 7:30 AM SURGEON/PRESIDENT - 03/28/2024 8:48 AM SURGEON/PRESIDENT Surgery [facility] [place] [address] Antwan Stone, DIEGO [address] [place] [address] REMOVAL OF HARDWARE LEFT FOOT 04/05/2024 8:30 AM SURGEON/PRESIDENT Office Visit [place] [facility] THREE [facility], [facility] [address] [place] [address] Dominick Mccloud MD Three [facility]. [facility] [address] [place] [address] Scheduled Procedures Name Priority Associated Diagnoses Date/Ti me REMOVAL PLATE SCREW OR PIN SCHED BY FAX 02/08/24 [facility] PHONE ASSESS 03/28/2024 7:30 AM SURGEON/PRESIDENT documented as of this encounter Visit Diagnoses Not on filedocumented in this encounter Care Teams Distribution Associate Relationship Specialty Start Date End Date Clara Stanley APNP [address] [place] [address] PCP - General NURSE PRACTITIONER 06/01/18 documented as of this encounter
--- OUTSIDE RECORDS SUMMARY | 2024-03-02 04:03 | XMS_ITS | Encounter Summary ---
Author Organization [facility] Address [address] [place] [address]. [place], [place] [address] [place] [address] Care Team Providers Care Dry Pan Operator Name Role Phone Jerry Fatima MD Primary Care Provider Yan alvarado Encounter Details Date Type Department Care Team (Latest Contact Info) Description 12/19/2014 Abstract [facility] Medical Group [...] st Contact Info) Description 03/28/2024 7:30 AM FIRE AND SAFETY HELPER Hospital Encounter [place] [address] Antwan Stone, DIEGO [address] [place], [place] [address] 03/28/2024 7:30 AM FIRE AND SAFETY HELPER Anesthesia [place] [address] Shanelle Avila, GRINDING MILL OPERATOR 1 [place] [address] 03/28/2024 7:30 AM FIRE AND SAFETY HELPER - 03/28/2024 8:48 AM FIRE AND SAFETY HELPER Surgery [place] [place] [address] Antwan Stone DPM [address], [place] [address] REMOVAL OF HARDWARE LEFT FOOT 04/05/2024 8:30 AM FIRE AND SAFETY HELPER Office Visit Darren Chaudhari-O'F allon THREE [facility], [facility] [address] [place] [address] Dominick Mccloud MD Three [facility]. [facility] [address] [place] [address] Scheduled Procedures Name Priority Associated Diagnoses Date/Ti me REMOVAL PLATE SCREW OR PIN SCHED BY FAX 02/08/24 [facility] PHONE ASSESS 03/28/2024 7:30 AM FIRE AND SAFETY HELPER documented as of this encounter Visit Diagnoses Not on filedocumented in this encounter Care Teams Dry Pan Operator Relationship Specialty Start Date End Date Jerry Fatima MD PCP - General 01/11/15 05/31/18 documented as of this encounter
--- OUTSIDE RECORDS SUMMARY | 2024-03-02 04:03 | XMS_ITS | Encounter Summary ---
Author Organization [facility] Address [address] [place] [address]. [place] [address] [place] [address] Care Team Providers Care Signaling Project Engineer Name Role Phone Lizeth Clara CARRINGTON Primary Care Provider +1 [phone] Encounter Details Date Type Department Care Team (Late st Contact Info) Description 02/17/2019 [facility] at [facility], [address] [address] Scanned, Documents Social History Tobacco Use Types [...] AM [facility] Hospital Encounter [facility] [place] [address] Antwan Stone DPM [address], [place] [address] 03/28/2024 7:30 AM PETS SALESPERSON Anesthesia Event [place] [address] Shanelle Avila, CREW BOSS [address] [place] [address] 03/28/2024 7:30 AM PETS SALESPERSON - 03/28/2024 8:48 AM PETS SALESPERSON Surgery [place] [address] Antwan Stone, DPÁngel [address], [place] [address] REMOVAL OF HARDWARE LEFT FOOT 04/05/2024 8:30 AM PETS SALESPERSON Office Visit Darren Chaudhari-O'F allon THREE [facility], [facility] [address] [place] [address] Dominick Mccloud MD Three [facility]. [facility] [address] [place] [address] Scheduled Procedures Name Priority Associated Diagnoses Date/Ti me REMOVAL PLATE SCREW OR PIN SCHED BY FAX 02/08/24 [facility] PHONE ASSESS 03/28/2024 7:30 AM PETS SALESPERSON documented as of this encounter Visit Diagnoses Not on filedocumented in this encounter Care Teams Signaling Project Engineer Relationship Specialty Start Date End Date Clara Stanley APNP [address] [place] [address] PCP - General NURSE PRACTITIONER 06/01/18 documented as of this encounter
--- OUTSIDE RECORDS SUMMARY | 2024-03-02 04:03 | XMS_ITS | Encounter Summary ---
Author Organization [facility] Address [address] [place] [address]. [place], [place] [address] [place] [address] Care Team Providers Care Cheesemaker Helper Name Role Phone Clara Stanley Ricardo CARRINGTON Primary Care Provider +[phone] Reason for Visit * Reason Comments Report (SCAN) [facility] - PROGRESS NOTES - GASTROENTEROLOGY INITIAL VISIT: CONSULT FOR COLONOSCOPY Encounter Details Date Type Department Care Team (Late Contact Info) Description 06/17/2018 Scan HEALTH INFO [facility] Scanned, Documents Report (SCAN) ([facility] - PROGRESS NOTES - GASTROENTEROLOGY INITIAL VISIT: [...] (Late Contact Info) Description 03/28/2024 7:30 AM PLAYERS ASSISTANT Hospital Encounter [facility] One Day Services [place], [place] [address] Antwan Stone DPM [address] [place] [address] 03/28/2024 7:30 AM PLAYERS ASSISTANT Anesthesia Event [facility] [address] Shanelle Avila, GREIGE GOODS MARKER 1 [place] [address] 03/28/2024 7:30 AM PLAYERS ASSISTANT - 03/28/2024 8:48 AM PLAYERS ASSISTANT Surgery [facility] [place] [address] Antwan Stone, DPM [address], [place] [address] REMOVAL OF HARDWARE LEFT FOOT 04/05/2024 8:30 AM PLAYERS ASSISTANT Office Visit [place] [facility] THREE [facility], [facility] [address] [place] [address] Dominick Mccloud MD Three [facility]. [facility] [address] [place] [address] Scheduled Procedures Name Priority Associated Diagnoses Date/Ti me REMOVAL PLATE SCREW OR PIN SCHED BY FAX 02/08/24 [facility] PHONE ASSESS 03/28/2024 7:30 AM PLAYERS ASSISTANT documented as of this encounter Visit Diagnoses Not on filedocumented in this encounter Care Teams Cheesemaker Helper Relationship Specialty Start Date End Date Clara Stanley APNP [address] [place] [address] PCP - General NURSE PRACTITIONER 06/01/18 documented as of this encounter
--- OUTSIDE RECORDS SUMMARY | 2024-03-02 04:03 | XMS_ITS | Encounter Summary ---
Author Organization [facility] Address [address] [place] [address]. [place], [place] [address] [place] [address] Care Team Providers Care Butt Trimmer Name Role Phone Clara Stanley Primary Care Provider +1 [phone] Reason for Visit * Reason Onset Date Comments Follow Up Call 07/06/2018 Encounter Details Date Type Department Care Team (Late st Contact Info) Description 07/06/2018 Telephone [facility] Medical Group Multispecialty Care - [facility] [address] [facility] [place] [address] Hector Delgado MD 3 [facility] [address] [place] [address] Follow Up Call Social History Tobacco Use [...] It is continuing when he goes #[phone]. [phone] documented in this encounter Plan of Treatment Upcoming Encounters Date Type Department Care Team (Late st Contact Info) Description 03/28/2024 7:30 AM CERTIFIED ALCOHOL AND DRUG COUNSELOR Hospital Encounter [facility] [place] [place] [address] Antwan Stone DPM [address], [place] [address] 03/28/2024 7:30 AM CERTIFIED ALCOHOL AND DRUG COUNSELOR Anesthesia Event [place] [address] Shanelle Avila, BUTTON INSPECTOR 1 [place] [address] 03/28/2024 7:30 AM CERTIFIED ALCOHOL AND DRUG COUNSELOR - 03/28/2024 8:48 AM CERTIFIED ALCOHOL AND DRUG COUNSELOR Surgery [place] [address] Antwan Stone DPM [address], [place] [address] REMOVAL OF HARDWARE LEFT FOOT 04/05/2024 8:30 AM CERTIFIED ALCOHOL AND DRUG COUNSELOR Office Visit Darren Chaudhari-O'F allon THREE [facility] [place] [address] [place] [address] Dominick Mccloud MD Three [facility]. [facility] [address] [place] [address] Scheduled Procedures Name Priority Associated Diagnoses Date/Ti me REMOVAL PLATE SCREW OR PIN SCHED BY FAX 02/08/24 KHMary PHONE ASSESS 03/28/2024 7:30 AM CERTIFIED ALCOHOL AND DRUG COUNSELOR documented as of this encounter Visit Diagnoses Not on filedocumented in this encounter Care Teams Butt Trimmer Relationship Specialty Start Date End Date Clara Stanley APNP [address] [place] [address] PCP - General NURSE PRACTITIONER 06/01/18 documented as of this encounter
--- OUTSIDE RECORDS SUMMARY | 2024-03-02 04:03 | XMS_ITS | Encounter Summary ---
Author Organization [facility] Address [address] [place] [address]. [place], [place] [address] [place] [address] Care Team Providers Care Assistant Auto Center Manager Name Role Phone Lizeth Clara CARRINGTON Primary Care Provider +1 [phone] Reason for Visit * Reason Comments Colonoscopy [...] (Late Contact Info) Description 03/28/2024 7:30 AM ASSESSMENT CLINICIAN Hospital Encounter [facility] [place] [address] Antwan Stone DPM [address], [place] [address] 03/28/2024 7:30 AM ASSESSMENT CLINICIAN Anesthesia Event [place] [address] Shanelle Avila, SUPERVISOR PICKING CREW 1 [place] [address] 03/28/2024 7:30 AM ASSESSMENT CLINICIAN - 03/28/2024 8:48 AM ASSESSMENT CLINICIAN Surgery [place] [address] Antwan Stone, DPÁngel [address], [place] [address] REMOVAL OF HARDWARE LEFT FOOT 04/05/2024 8:30 AM ASSESSMENT CLINICIAN Office Visit Darren Chaudhari-O'F allon THREE [facility], [facility] [address] [place] [address] Dominick Mccloud MD Three [facility]. [facility] [address] [place] [address] Scheduled Procedures Name Priority Associated Diagnoses Date/Ti me REMOVAL PLATE SCREW OR PIN SCHED BY FAX 02/08/24 [facility] PHONE ASSESS 03/28/2024 7:30 AM ASSESSMENT CLINICIAN documented as of this encounter Procedures Procedure Name Priority Date/Time Associated Diagnosis Comments PATHOLOGY GENERIC (SCAN ORDER) Routine 06/30/2018 COLONOSCOPY GENERIC (SCAN ORDER) Routine 06/30/2018 documented in this encounter Results * PATHOLOGY (06/30/2018) 06/30/2018 us Documents Scanned SCANNING Final Result * COLONOSCOPY (06/30/2018) us Documents Scanned SCANNING Final Result documented in this encounter Visit Diagnoses Not on filedocumented in this encounter Care Teams Assistant Auto Center Manager Relationship Specialty Start Date End Date Clara Stanley APNP [address] [place] [address] PCP - General NURSE PRACTITIONER 06/01/18 documented as of this encounter
--- OUTSIDE RECORDS SUMMARY | 2024-03-02 04:03 | XMS_ITS | Encounter Summary ---
Author Organization [facility] Address [address] [place] [address]. [place], [place] [address] [place] [address] Care Team Providers Care Four H Agent Name Role Phone Jerry Fatima MD Primary Care Provider Yan alvarado Encounter Details Date Type Department Care Team (Latest Contact Info) Description 12/06/2014 Abstract [facility] Medical Group Social History Tobacco Use [...] 12/06/2014 9:38 AM CDT Message Date of Hospital/[place] Discharge: 12/06/2014 Date of Contact: 12/06/2014 Individual Contacted: Spouse, Faith Contacted by: Cris Reviewed/ Addressed Pt discharged today, doing well. Follow up scheduled. Signatures Electronically signed by : Cris Yusuf, ; Dec 06 2014 9:39AM SHOT PEEN OPERATOR (Author) documented in this encounter Plan of Treatment Upcoming Encounters Date Type Department Care Team (Late st Contact Info) Description 03/28/2024 7:30 AM SHOT PEEN OPERATOR Hospital Encounter [facility] [place] [address] Antwan Stone DPM [address], [place] [address] 03/28/2024 7:30 AM SHOT PEEN OPERATOR Anesthesia Event [place] [address] Shanelle Avila, GRINDING ROOM INSPECTOR 1 [place] [address] 03/28/2024 7:30 AM SHOT PEEN OPERATOR - 03/28/2024 8:48 AM SHOT PEEN OPERATOR Surgery [place] [address] Antwan Stone, DPM [address], [place] [address] REMOVAL OF HARDWARE LEFT FOOT 04/05/2024 8:30 AM SHOT PEEN OPERATOR Office Visit [place] [facility] THREE [facility], [facility] [address] [place] [address] Dominick Mccloud MD Three [facility]. [facility] [address] [place], [place] [address] Scheduled Procedures Name Priority Associated Diagnoses Date/Ti me REMOVAL PLATE SCREW OR PIN SCHED BY FAX 02/08/24 [facility] PHONE ASSESS 03/28/2024 7:30 AM SHOT PEEN OPERATOR documented as of this encounter Visit Diagnoses Not on filedocumented in this encounter Care Teams Four H Agent Relationship Specialty Start Date End Date Jerry Fatima MD PCP - General 01/11/15 05/31/18 documented as of this encounter
--- OUTSIDE RECORDS SUMMARY | 2024-03-02 04:03 | XMS_ITS | Encounter Summary ---
Author Organization [facility] Address [address] [place] [address]. [place], [place] [address] [place] [address] Care Team Providers Care Manager Cleaning Name Role Phone Jerry Fatima MD Primary Care Provider Yan alvarado Encounter Details Date Type Department Care Team (Late st Contact Info) Description 06/15/2014 Abstract [facility] Conversion Md, Generic Conversion, Social History [...] st Contact Info) Description 03/28/2024 7:30 AM AIRCRAFT MAINTENANCE INSTRUCTOR Hospital Encounter [facility] [place] [place] [address] Antwan Stone, DIEGO [address] [place] [address] 03/28/2024 7:30 AM AIRCRAFT MAINTENANCE INSTRUCTOR Anesthesia Event [place] [address] Shanelle Avila, BURIAL NEEDS SALESPERSON 1 [place] [address] 03/28/2024 7:30 AM AIRCRAFT MAINTENANCE INSTRUCTOR - 03/28/2024 8:48 AM AIRCRAFT MAINTENANCE INSTRUCTOR Surgery [facility] [place] [address] Antwan Stone DPM [address] [place] [address] REMOVAL OF HARDWARE LEFT FOOT 04/05/2024 8:30 AM AIRCRAFT MAINTENANCE INSTRUCTOR Office Visit Darren Chaudhari-O'F allon THREE [facility], [facility] [address] [place] [address] Dominick Mccloud MD Three [facility]. [facility] [address] [place] [address] Scheduled Procedures Name Priority Associated Diagnoses Date/Ti me REMOVAL PLATE SCREW OR PIN SCHED BY FAX 02/08/24 [facility] PHONE ASSESS 03/28/2024 7:30 AM AIRCRAFT MAINTENANCE INSTRUCTOR documented as of this encounter Visit Diagnoses Not on filedocumented in this encounter Care Teams Manager Cleaning Relationship Specialty Start Date End Date Jerry Fatima MD PCP - General 01/11/15 05/31/18 documented as of this encounter
--- OUTSIDE RECORDS SUMMARY | 2024-03-02 04:03 | XMS_ITS | Encounter Summary ---
Author Organization [facility] Address [address] [place] [address]. [place], [place] [address] [place] [address] Care Team Providers Care Pegger Name Role Phone Jerry Fatima MD Primary Care Provider Yan alvarado Encounter Details Date Type Department Care Team (Latest Contact Info) Description 01/24/2016 Abstract [facility] Medical Group Social History Tobacco Use Types [...] 11.4 fL 7.5-11.5 ABSOLUTE NEUTROPHILS 6560 cells/uL 4495-4508 ABSOLUTE LYMPHOCYTES 1463 cells/uL 850-3900 ABSOLUTE MONOCYTES 837 cells/uL 200-950 ABSOLUTE EOSINOPHILS 313 cells/uL 15-500 ABSOLUTE BASOPHILS 28 cells/uL 0-200 NEUTROPHILS 71.3 % LYMPHOCYTES 15.9 % MONOCYTES 9.1 % EOSINOPHILS 3.4 % BASOPHILS 0.3 % Test Performed at: [facility] [email or web address] [address] [place] [address] ENRICO VALDEZ DO,MPH QU-COMPREHENSIVE METABOLIC PANEL 14408 22Jan2016 10:17AM Jerry Fatima Test Name Result Flag Reference GLUCOSE 94 mg/dL 65-99 Fasting reference interval UREA NITROGEN (BUN) 14 mg/dL 7-25 CREATININE 0.74 mg/dL 0.60-1.35 eGFR NON-AFR. MACANESE 109 > OR = 60 UNITS: mL/min/1.73m2 [...] ALT 16 U/L 9-46 Test Performed at: [employer] [facility] [place] [address] [place] [address] ENRICO VALDEZ DO,MPH QU-LIPID PANEL WITH REFLEX TO DIRECT LDL 34726 22Jan2016 10:17AM Jerry Fatima Test Name Result [...] than LDL cholesterol target. Test Performed at: [employer] [place] [address] [place] [address] ENRICO VALDEZ DO,MPH Discussion/Summary labs are generally [...] st Contact Info) Description 03/28/2024 7:30 AM TEST MAN Hospital Encounter [facility] [place] [address] Antwan Stone DPM [address], [place] [address] 03/28/2024 7:30 AM TEST MAN Anesthesia [place] [address] Shanelle Avila, COLORIST DYER 1 [place] [address] 03/28/2024 7:30 AM TEST MAN - 03/28/2024 8:48 AM TEST MAN [place] [address] Antwan Stone DPM [address], [place] [address] REMOVAL OF HARDWARE LEFT FOOT 04/05/2024 8:30 AM TEST MAN Office Visit Darren Chaudhari-O'F johnn THREE [facility], [facility] [address] [place], [place] [address] Dominick Mccloud MD Three [facility]. [facility] [address] [place], [place] [address] Scheduled Procedures Name Priority Associated Diagnoses Date/Ti me REMOVAL PLATE SCREW OR PIN SCHED BY FAX 02/08/24 [facility] PHONE ASSESS 03/28/2024 7:30 AM TEST MAN documented as of this encounter Visit Diagnoses Not on filedocumented in this encounter Care Teams Pegger Relationship Specialty Start Date End Date Jerry Fatima MD PCP - General 01/11/15 05/31/18 documented as of this encounter
--- OUTSIDE RECORDS SUMMARY | 2024-03-02 04:03 | XMS_ITS | Encounter Summary ---
Author Organization [facility] Address [address] [place] [address]. [place], [place] [address] [place] [address] Care Team Providers Care Commercial Carpet Installer Name Role Phone Clara Stanley Primary Care Provider +1 [phone] Reason for Visit * Reason Comments Cough Encounter Details Date Type Department Care Team (Late st Contact Info) Description 10/04/2018 2:00 PM CDT Office Visit [facility] Medical Group Family & Internal Medicine [place] [address] [place] [address] Clara Stanley APNP [facility] [place], [place] [phone] Cough Social History Tobacco Use Types Packs/Day [...] the original note were not included. [facility] FAMILY AND INTERNAL MEDICINE OFFICE VISIT Reason [...] file Gets together: Not on file Attends advent service: Not on file Active member of [...] st Contact Info) Description 03/28/2024 7:30 AM COAL HAULER OPERATOR Hospital En[facility] [place] [address] Antwan Stone, TEJASM [address], [place] [address] 03/28/2024 7:30 AM COAL HAULER OPERATOR Anesthesia Event [place] [address] Shanelle Avila, PACKING AND SHIPPING CLERK 1 [place] [address] 03/28/2024 7:30 AM COAL HAULER OPERATOR - 03/28/2024 8:48 AM COAL HAULER OPERATOR Surgery [place] [address] Antwan Stone, DIEGO [address], [place], [place] [address] REMOVAL OF HARDWARE LEFT FOOT 04/05/2024 8:30 AM COAL HAULER OPERATOR Office Visit Darren Chaudhari-O'F lonnie THREE [facility], [facility] [address] [place] [address] Dominick Mccloud MD Three [facility]. [facility] [address] [place] [address] Scheduled Procedures Name Priority Associated Diagnoses Date/Ti me REMOVAL PLATE SCREW OR PIN SCHED BY FAX 02/08/24 KAYLIE PHONE ASSESS 03/28/2024 7:30 AM COAL HAULER OPERATOR documented as of this encounter Results [...] Primary documented in this encounter Care Teams Commercial Carpet Installer Relationship Specialty Start Date End Date Clara Stanley APNP [address] [place] [address] PCP - General NURSE PRACTITIONER 06/01/18 documented as of this encounter
--- OUTSIDE RECORDS SUMMARY | 2024-03-02 04:03 | XMS_ITS | Encounter Summary ---
Author Organization [facility] Address [address] [place] [address]. [place], [place] [address] [place] [address] Care Team Providers Care Dental Service Technician Name Role Phone Clara Stanley Primary Care Provider [phone]- [phone] Encounter Details Date Type Department Care Team (Latest Contact Info) Description 06/09/2018 3:17 PM CDT - 06/09/2018 11:59 PM CDT Hospital Encounter [facility] [place] [address] Clara Stanley APNP [address] [place], [place] [id number] Discharge Disposition: Home or Self Care (Routine [...] AM [facility] Hospital Encounter [facility] [place] [address] Antwan Stone DPM [address] [place] [address] 03/28/2024 7:30 AM [facility] Anesthesia Event [place] [address] Shanelle Avila, STUDENT LIFE COORDINATOR 1 [place] [address] 03/28/2024 7:30 AM FURNITURE FINISHER HELPER - 03/28/2024 8:48 AM [facility] Surgery [place] [address] Antwan Stone DPM [address] [place], [place] [address] REMOVAL OF HARDWARE LEFT FOOT 04/05/2024 8:30 AM FURNITURE FINISHER HELPER Office Visit Darren Chaudhari-O'F allon THREE [facility], [facility] [address] [place] [address] Dominick Mccloud MD Three [facility]. [facility] [address] [place] [address] Scheduled Procedures Name Priority Associated Diagnoses Date/Ti me REMOVAL PLATE SCREW OR PIN SCHED BY FAX 02/08/24 [facility] PHONE ASSESS 03/28/2024 7:30 AM FURNITURE FINISHER HELPER documented as of this encounter Procedures Procedure Name Priority Date/Time Associated Diagnosis Comments HEMOGLOBIN, GLYCOSYLATED Routine 06/08/2018 10:57 AM CDT Hyperglycemia documented in this encounter Results * HEMOGLOBIN, GLYCOSYLATED (06/08/2018 10:57 AM CDT) HGB A1C 5.5 4.2 - 6.3 % 06/09/2018 5:38 PM CDT [facility] Comment: ADA GUIDELINES 2010 5.7 TO 6.4% INCREASED RISK OF DIABETES > OR = 6.5% CONSISTENT WITH DIABETES ESTIMATED AVG GLUCOSE 111 mg/dL 06/09/2018 5:38 PM CDT [facility] 06/08/2018 10:5 7 AM CDT Clara CARRINGTON [facility] Final Resul t [facility] [address] [place] [address], documented in this encounter Visit Diagnoses Diagnosis Hyperglycemia Other abnormal glucose Painful orthopaedic hardware (CMS/HCC)- Primary documented in this encounter Care Teams Dental Service Technician Relationship Specialty Start Date End Date Clara Stanley APNP [address] [place] [address] PCP - General NURSE PRACTITIONER 06/01/18 documented as of this encounter
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
--- OUTSIDE RECORDS SUMMARY | 2024-03-02 04:03 | XMS_ITS | Encounter Summary ---
Author Organization [facility] Address [address] [place] [address]. [place], [place] [address] [place] [address] Care Team Providers Care Trainer Name Role Phone Jerry Fatima MD Primary Care Provider Yan alvarado Encounter Details Date Type Department Care Team (Latest Contact Info) Description 12/05/2014 Abstract [facility] Medical Group Social History [...] st Contact Info) Description 03/28/2024 7:30 AM AUTOMATIC DRILLING 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 Hospital Encounter [facility] [place] [address] Antwan Stone, DIEGO [address], [place] [address] 03/28/2024 7:30 AM AUTOMATIC DRILLING 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 Anesthesia Event [facility] [address] Shanelle Avila, CATTLE BROKER [address] [place] [address] 03/28/2024 7:30 AM AUTOMATIC DRILLING 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 - 03/28/2024 8:48 AM AUTOMATIC DRILLING 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 [facility] [address] Antwan Stone DPM [address], [place] [address] REMOVAL OF HARDWARE LEFT FOOT 04/05/2024 8:30 AM AUTOMATIC DRILLING 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 Office Visit Darren Chaudhari-O'F allon [facility], [facility] [address] [place] [address] Dominick Mccloud MD Three [facility]. [facility] [address] [place] [address] Scheduled Procedures Name Priority Associated Diagnoses Date/Ti me REMOVAL PLATE SCREW OR PIN SCHED BY FAX 02/08/24 [facility] PHONE ASSESS 03/28/2024 7:30 AM AUTOMATIC DRILLING 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 documented as of this encounter Visit Diagnoses Not on filedocumented in this encounter Care Teams Trainer Relationship Specialty Start Date End Date Jerry Fatima MD PCP - General 01/11/15 05/31/18 documented as of this encounter
--- OUTSIDE RECORDS SUMMARY | 2024-03-02 04:03 | XMS_ITS | Encounter Summary ---
Author Organization [facility] Address [address] [place] [address]. [place] [address] [place] [address] Care Team Providers Care Field Assembly Supervisor Name Role Phone Jerry Fatima MD Primary Care Provider Yan alvarado Encounter Details Date Type Department Care Team (Late st Contact Info) Description 08/21/2014 Abstract [facility] Marjan Lai NP [address] [place] [address] Social History Tobacco Use Types Packs/Day [...] approved by: Keke Burr Date: 08/21/14 10:08 LING ENGINEER documented in this encounter Plan of Treatment Upcoming Encounters Date Type Department Care Team (Late st Contact Info) Description 03/28/2024 7:30 AM DRILLING ENGINEER Hospital Encounter [facility] [place] [address] Antwan Stone DPM [address] [place] [address] 03/28/2024 7:30 AM DRILLING ENGINEER Anesthesia [place] [address] Shanelle Avila, NETWORK OPERATIONS PROJECT MANAGER [address] [place] [address] 03/28/2024 7:30 AM DRILLING ENGINEER - 03/28/2024 8:48 AM DRILLING ENGINEER Surgery [place] [address] Antwan Stone DPM [address] [place] [address] REMOVAL OF HARDWARE LEFT FOOT 04/05/2024 8:30 AM DRILLING ENGINEER Office Visit Darren Cardiovascular-O'F allon THREE [facility] [address] [place] [address] Dominick Mccloud MD Three [facility] [address] [place] [address] Scheduled Procedures Name Priority Associated Diagnoses Date/Ti me REMOVAL PLATE SCREW OR PIN SCHED BY FAX 02/08/24 [facility] PHONE ASSESS 03/28/2024 7:30 AM DRILLING ENGINEER documented as of this encounter Visit Diagnoses Not on filedocumented in this encounter Care Teams Field Assembly Supervisor Relationship Specialty Start Date End Date Jerry Fatima MD PCP - General 01/11/15 05/31/18 documented as of this encounter
--- OUTSIDE RECORDS SUMMARY | 2024-03-02 04:03 | XMS_ITS | Encounter Summary ---
Author Organization [facility] Address [address] [place] [address]. [place], [place] [address] [place] [address] Care Team Providers Care Property Disposal Manager Name Role Phone Clara Stanley Primary Care Provider [phone] Reason for Referral * Imaging (Emergency) - Closed Specialty Diagnoses / Procedures Referred By Contac t Referred To Contact RADIOLOGY Procedures CT HEAD WO CON Monica Turner PA [address] [place] [address] Phone: tel: fax: Referral ID Status Reason Start Date Expiration Date Visits Re quested Visits Authorized [id number] Closed 03/17/2019 04/17/2020 1 1 ING 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 Reason for Visit * Reason Comments Headache Dizziness Encounter Details Date Type Department Care Team (Late st Contact Info) Description 03/17/2019 6:49 PM FOILING 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 - 03/17/2019 11:35 PM FOILING 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 Emergency [facility] [place] [address] Leslie Dodson MD [address] [place] [id number] Headache; Dizziness Discharge Disposition: Home or Self [...] Comments Blood Pressure 182/98 03/17/2019 11:16 PM FOILING 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 Pulse 85 03/17/2019 11:16 PM FOILING 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 Temperature 36.5 ??C (97.7 ??F) 03/17/2019 6:10 PM CS T Respiratory Rate 18 03/17/2019 11:16 PM FOILING 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 Oxygen Saturation 96% 03/17/2019 11:16 PM FOILING 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 Inhaled Oxygen Concentration - - Weight 169.6 kg (374 lb) 03/17/2019 6:10 PM FOILING 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 Height 190.5 cm (6' 3 ) 03/17/2019 6:10 PM FOILING 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 Body Mass Index 46.75 03/17/2019 6:10 PM FOILING 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 documented in this encounter Discharge Instructions * Discharge Instructions* Leslie Dodson MD - 03/17/2019 11:09 PM FOILING 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 You were seen in the emergency department today for headache, dizziness, myalgias and back pain. Work-up is significant for slightly elevated white blood count, however there is no evidence of pneumonia ING 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 documented in this encounter Medications at Time [...] denies further questions, here to take home ING 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 * Leslie Dodson MD - 03/17/2019 11:10 [...] encounter of 03/17/19 ECG 12 lead Narrative [facility] Test Date: 2019-03-17 Pat Name: MP KULKARNI Department: Room: [facility] Gender: Male Director Of Student Financial Aid: [place] : 1965 Requested By: MONICA TURNER Order Number: [id number] Reading MD: Lamont Hall Measurements Intervals Mosby Rate: 87 P: 41 WI: 205 QRS: -37 QRSD: 97 T: 22 QT: 375 QTc: 454 Interpretive Statements SINUS RHYTHM MARKED LEFT AXIS DEVIATION INCOMPLETE RIGHT BUNDLE BRANCH BLOCK Compared to ECG 06/28/2018 14:37:35 Left-axis deviation now present ING 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 LABORATORY STUDIES: Results for orders placed or [...] CLEAN CATCH COLOR YELLOW TRANSPARENCY CLEAR Specific Reeves (U) 1.021 1.001 - 1.030 U PH [...] HEAD WO CON Final Result by User, [email or web address] (03/17 2032) EXAMINATION: CT OF THE BRAIN [...] XR CHEST PA+LAT Final Result by User, [id number] (03/17 2031) EXAMINATION: CHEST X-RAY TWO VIEWS [...] Myalgia Disposition: Discharge Leslie Dodson MD 03/17/19 845 ING 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 * KALPANA Cain - 03/17/2019 7:07 PM CST [place] EMERGENCY DEPARTMENT ENCOUNTER Medical Screening Examination [...] to facilitate patient care. KALPANA Cain 03/17/19 6599 Cosigned by Leslie Dodson MD at 03/17/2019 11:47 PM FOILING 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 ING 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 ING 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 Associated attestation - Leslie Dodson MD - 03/17/2019 11:47 PM FOILING 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 I, LESLIE DODSON MD, reviewed the LUNA's [...] of heart disease, denies personal cardiac hx. ING 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 documented in this encounter Plan of Treatment Upcoming Encounters Date Type Department Care Team (Late st Contact Info) Description 03/28/2024 7:30 AM FOILING 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 Hospital Encounter [facility] [place] [address] Antwan Stone DPM [address] [place], [place] [address] 03/28/2024 7:30 AM FOILING 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 Anesthesia [place] [address] Shanelle Avila, SYRUP MIXER ASSISTANT [address] [place] [address] 03/28/2024 7:30 AM FOILING 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 - 03/28/2024 8:48 AM FOILING 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 [place] [address] Antwan Stone DPM [address], [place] [address] REMOVAL OF HARDWARE LEFT FOOT 04/05/2024 8:30 AM FOILING 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 Office Visit [facility] Fara-Omar'Marbella fleming [facility], [facility] [address] [place] [address] Dominick Mccloud MD Three [facility]. [facility] [address] [place] [address] Scheduled Procedures Name Priority Associated Diagnoses Date/Ti me REMOVAL PLATE SCREW OR PIN SCHED BY FAX 02/08/24 [facility] PHONE ASSESS 03/28/2024 7:30 AM FOILING 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 documented as of this encounter Procedures Procedure Name Priority Date/Time Associated Diagnosis Comments URINALYSIS WI REFLEX TO CULTURE STAT 03/17/2019 10:23 PM FOILING 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 INFLUENZA A & B STAT 03/17/2019 8:18 PM FOILING 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 LACTIC ACID TIMED 03/17/2019 8:18 PM FOILING 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 XR CHEST PA+LAT STAT 03/17/2019 7:55 PM FOILING 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 ECG 12-LEAD STAT 03/17/2019 7:49 PM FOILING 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 CT HEAD WO CON STAT 03/17/2019 7:26 PM FOILING 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 COMPREHENSIVE METABOLIC PANEL STAT 03/17/2019 7:17 PM FOILING 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 D-DIMER, QUANTITATIVE STAT 03/17/2019 7:17 PM FOILING 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 CBC W/DIFF AUTOMATED STAT 03/17/2019 7:17 PM FOILING 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 TROPONIN, QUANT STAT 03/17/2019 7:17 PM FOILING 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 POCT GLUCOSE - WILKINSON DOCKED DEVICE Routine 03/17/2019 6:14 PM FOILING 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 documented in this encounter Results * (ABNORMAL) URINALYSIS WI REFLEX TO CULTURE (03/17/2019 10:23 PM [facility]) SPECIMEN TYPE URINE CLEAN CATCH 03/17/2019 10:05 PM [facility] COLOR (U) YELLOW 03/17/2019 10:54 PM [facility] TRANSPARENCY CLEAR 03/17/2019 10:54 PM [facility] SPECIFIC GRAVITY (U) 1.021 1.001 - 1.030 03/17/2019 10:54 PM [facility] U PH 6.0 5.0 - 9.0 03/17/2019 10:54 PM [facility] LEUKOCYTES (U) NEGATIVE NEGATIVE 03/17/2019 10:54 PM [facility] NITRITES NEGATIVE NEGATIVE 03/17/2019 10:54 PM [facility] PROTEIN (U) NEGATIVE <30 MG/DL 03/17/2019 10:54 PM [facility] URINE GLUCOSE NEGATIVE NEGATIVE MG/DL 03/17/2019 10:54 PM [facility] KETONES MG/DL (U) TRACE(A) NEGATIVE MG/DL 03/17/2019 10:54 PM [facility] UROBILINOGEN NEGATIVE NEGATIVE MG/DL 03/17/2019 10:54 PM [facility] BILIRUBIN (U) NEGATIVE NEGATIVE MG/DL 03/17/2019 10:54 PM [facility] BLOOD (U) NEGATIVE NEGATIVE 03/17/2019 10:54 PM [facility] CULTURE & SENSITIVITY INDICATED? CULTURE IS NOT INDICATED 03/17/2019 10:54 PM [facility] SQUAMOUS EPITHELIALS MODERATE /LPF 03/17/2019 10:54 PM [facility] MUCUS RARE /LPF 03/17/2019 10:54 PM [facility] WBC/HPF 2 <6 /HPF 03/17/2019 10:54 PM FOILING 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 [facility] RBC/HPF 2 <6 /HPF 03/17/2019 10:54 PM FOILING 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 [facility] BACTERIA (U) RARE(A) NONE /HPF 03/17/2019 10:54 PM FOILING 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 [facility] URINE SPECIMEN OBTAINED BY CLEAN CATCH PROCEDURE / Unknown 03/17/2019 10:23 PM FOILING 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 Monica ACUNA URINE ORDERABLES Final Res ult Performing Organization Address City/[facility]/ZIP Co de Phone Number [facility] [address] [place] [address], [place] [phone] * (ABNORMAL) LACTIC ACID (03/17/2019 8:18 PM FOILING 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) LACTIC ACID VENOUS 2.4(H) 0.4 - 2.0 MMOL/L 03/17/2019 9:06 PM FOILING 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 [facility] Comment:EAB CALLED CRITICAL RESULTS AT 17Mar2019 TO AND READ BACK BY MYNOR Wong 03/17/2019 8:18 PM FOILING 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 Monica ACUNA LABORATORY Final Resu lt [facility] [address] [place] [address], [place] [phone] * INFLUENZA A & B (03/17/2019 8:18 PM FOILING MACHINE OPERATOR) SPECIMEN TYPE NASAL 03/17/2019 8:26 PM FOILING MACHINE OPERATOR [facility] INFLUENZA A NEGATIVE NEGATIVE 03/17/2019 8:44 PM FOILING MACHINE OPERATOR [facility] INFLUENZA B NEGATIVE NEGATIVE 03/17/2019 8:44 PM FOILING MACHINE OPERATOR [facility] Comment: Interpretation: Negative for Influenza A [...] NASOPHARYNGEAL SWAB / Unknown 03/17/2019 8:18 PM FOILING MACHINE OPERATOR Monica ACUNA MICROBIOLOGY - GENERAL ORD ERABLES Final Result [facility] [address] [place] [address], * XR CHEST PA+LAT (03/17/2019 7:55 PM FOILING MACHINE OPERATOR) Anatomical Region Laterality Modality Chest Radiographic Trang ging 03/17/2019 8:30 PM FOILING MACHINE OPERATOR Impressions 03/17/2019 8:31 PM FOILING MACHINE OPERATOR IMPRESSION: No acute cardiopulmonary process. Interpreted By: Kathryn Cotton MD, 03/17/2019 8:30 PM Narrative 03/17/2019 8:31 PM FOILING MACHINE OPERATOR EXAMINATION: CHEST X-RAY TWO VIEWS EXAM TIME: [...] * ECG 12 lead (03/17/2019 7:49 PM FOILING MACHINE OPERATOR) 03/17/2019 7:49 PM FOILING MACHINE OPERATOR Narrative [facility] - 03/17/2019 8:34 PM FOILING MACHINE OPERATOR ?[place]`gloria Altman ? [address] [place] ? Test Date: ?2019-03-17 Pat Name: ? MP KULKARNI ?Department: ? Room: ? EXAM14 Gender: ? Male ? Director Of Student Financial Aid: ?? [place] : ?1965 ? Requested By: MONICA TURNER Order Number: [id number] ? Nicholas KIM: ?? Lamont Hall ? Measurements Intervals ?[place] ? Rate: ? 87 ? P: ?41 WI: ? 205 ?QRS: ?-37 QRSD: ? 97 ? T: ?22 QT: ? 375 ? QTc: ?454 ? Interpretive Statements SINUS RHYTHM MARKED LEFT AXIS DEVIATION INCOMPLETE RIGHT BUNDLE BRANCH BLOCK Compared to ECG 06/28/2018 14:37:35 Left-axis deviation now present ING MACHINE OPERATOR Procedure Note Lamont Hall MD - 03/17/2019 [facility] [address] [facility] Test Date: 2019-03-17 Pat Name: MP KULKARNI Department: Room: [facility] Gender: Male Director Of Student Financial Aid: [place] : 1965 Requested By: MONICA TURNER Order Number: [id number] Reading MD: Lamont Hall Measurements Intervals Mosby Rate: 87 P: 41 WI: 205 QRS: -37 QRSD: 97 T: 22 QT: 375 QTc: 454 Interpretive Statements SINUS RHYTHM MARKED LEFT AXIS DEVIATION INCOMPLETE RIGHT BUNDLE BRANCH BLOCK Compared to ECG 06/28/2018 14:37:35 Left-axis deviation now present ING MACHINE OPERATOR us Monica ACUNA ECG ORDERABLES Final Resu lt [facility] * CT HEAD WO CON (03/17/2019 7:26 PM FOILING MACHINE OPERATOR) Anatomical Region Laterality Modality Head Computed Tomogra phy 03/17/2019 8:31 PM FOILING MACHINE OPERATOR Impressions 03/17/2019 8:32 PM FOILING MACHINE OPERATOR IMPRESSION: 1. No definite CT evidence of acute intracranial abnormality. A radiation dose lowering technique was used for this procedure, which may include, but is not limited to, dose reduction technique, automated exposure control, the use of iterative reconstruction, ALARA (As Low As Reasonably Achievable) techniques, and Image Gently techniques. Interpreted By: Kathryn Cotton MD, 03/17/2019 8:31 PM Narrative 03/17/2019 8:32 PM FOILING MACHINE OPERATOR EXAMINATION: CT OF THE BRAIN WITHOUT CONTRAST [...] lt * TROPONIN, QUANT (03/17/2019 7:17 PM FOILING MACHINE OPERATOR) TROPONIN I <0.015 <0.045 ng/mL. 03/17/2019 7:57 PM FOILING MACHINE OPERATOR [facility] Comment: HIGH DOSES OF BIOTIN MAY INTERFERE WITH THIS TEST RESULT. CORRELATION TO CLINICAL HISTORY AND PRESENTATION RECOMMENDED. 03/17/2019 7:17 PM FOILING MACHINE OPERATOR Monica ACUNA LABORATORY Final Resu lt [facility] [address] [place] [address], [place] [phone] * D-DIMER, QUANTITATIVE (03/17/2019 7:17 PM FOILING MACHINE OPERATOR) D-DIMER <150 0 - 230 D DU ng/mL 03/17/2019 7:56 PM FOILING MACHINE OPERATOR [facility] Comment: TESTING PERFORMED ON [place] ACL TOP 300 ANALYZER. NOTE: RESULTS OF [...] LIVER CIRRHOSIS OR . 03/17/2019 7:17 PM FOILING MACHINE OPERATOR us Monica ACUNA LABORATORY Final Resu lt [facility] [address] [place] [address], * (ABNORMAL) COMPREHENSIVE METABOLIC PANEL (03/17/2019 7:17 PM FOILING MACHINE OPERATOR) Pathologist [facility] GLUCOSE 107(H) 70 - 99 MG/DL 03/17/2019 7:57 PM FOILING MACHINE OPERATOR [facility] BUN 15 7 - 18 MG/DL 03/17/2019 7:57 PM FOILING MACHINE OPERATOR [facility] CREATININE S/P/B 0.80 0.7 - 1.3 MG/DL 03/17/2019 7:57 PM FOILING MACHINE OPERATOR [facility] SODIUM S/P/B 135(L) 136 - 145 MMOL/L 03/17/2019 7:57 PM FOILING MACHINE OPERATOR [facility] POTASSIUM S/P/B 4.1 3.5 - 5.1 MMOL/L 03/17/2019 7:57 PM FOILING MACHINE OPERATOR [facility] CHLORIDE S/P/B 103 100 - 108 MMOL/L 03/17/2019 7:57 PM FOILING MACHINE OPERATOR [facility] CO2 24.6 21 - 32 MMOL/L 03/17/2019 7:57 PM [facility] CALCIUM S/P/B 9.3 8.5 - 10.1 MG/DL 03/17/2019 7:57 PM [facility] BILIRUBIN TOTAL S/P/B 0.5 0.2 - 1.2 MG/DL 03/17/2019 7:57 PM [facility] TOTAL PROTEIN S/P/B 8.4(H) 6.4 - 8.2 G/DL 03/17/2019 7:57 PM [facility] ALBUMIN S/P/B 4.1 3.4 - 5.0 G/DL 03/17/2019 7:57 PM [facility] AST 22 15 - 37 U/L 03/17/2019 7:57 PM [facility] ALT 33 16 - 60 U/L 03/17/2019 7:57 PM [facility] ALKALINE PHOSPHATASE S/P/B 91 50 - 136 U/L 03/17/2019 7:57 PM [facility] ANION GAP 7.4 5 - 15 MMOL/L 03/17/2019 7:57 PM [facility] BUN CREATININE RATIO 18.8 6 - 26 03/17/2019 7:57 PM [facility] A/G RATIO 1.0 1.0 - 2.0 RATIO 03/17/2019 7:57 PM [facility] EGFR NON-AFR. AMER. >90 >90 ML/MIN/1.7 3 M2 03/17/2019 7:57 PM [facility] EGFR AFR. AMER. >90 >90 ML/MIN/1.7 3 M2 03/17/2019 7:57 PM [facility] Comment: NOTE: eGFR is not calculated for patients <18 years of age. This is an estimated GFR (CKD EPI) and should not be used for calculating drug doses. 03/17/2019 7:17 PM FOILING MACHINE OPERATOR us Monica ACUNA LABORATORY Final Resu lt [facility] [address] [place] [address], [place] [phone] * (ABNORMAL) CBC W/DIFF AUTOMATED (03/17/2019 7:17 PM FOILING MACHINE OPERATOR) WBC 15.9(H) 4.5 - 11.0 x10'3/uL 03/17/2019 7:35 PM FOILING MACHINE OPERATOR [facility] RBC 5.01 4.70 - 6.10 x10'6/uL 03/17/2019 7:35 PM [facility] HGB 13.9(L) 14.0 - 18.0 G/DL 03/17/2019 7:35 PM [facility] HCT 44.1 43.0 - 54.0 % 03/17/2019 7:35 PM [facility] MCV 88.0 80.0 - 94.0 FL 03/17/2019 7:35 PM [facility] MCH 27.7 27.0 - 31.0 PG 03/17/2019 7:35 PM [facility] MCHC 31.5(L) 32.0 - 36.0 G/DL 03/17/2019 7:35 PM [facility] RDW 13.1 11.5 - 14.5 % 03/17/2019 7:35 PM [facility] PLT 285 130 - 400 x10'3/uL 03/17/2019 7:35 PM [facility] MPV 11.6 9.3 - 12.2 FL 03/17/2019 7:35 PM [facility] DIFFERENTIAL TYPE AUTOMATED DIFFERENTIAL 03/17/2019 7:35 PM FOILING MACHINE OPERATOR [facility] NEUTROPHILS % 83.7 % 03/17/2019 7:35 PM [facility] LYMPHOCYTES % 8.0 % 03/17/2019 7:35 PM [facility] MONOCYTES % 6.6 % 03/17/2019 7:35 PM [facility] EOSINOPHILS 0.6 % 03/17/2019 7:35 PM [facility] BASOPHILS 0.5 % 03/17/2019 7:35 PM [facility] IMMATURE GRANS % 0.6 % 03/17/19 7:35 PM [facility] ABS. NEUTROPHILS TOTAL 13.30(H) 1.80 - 7.70 x10'3/uL 03/17/2019 7:35 PM [facility] ABS. LYMPHOCYTES 1.27 1.00 - 4.80 x10'3/uL 03/17/2019 7:35 PM [facility] ABS. MONOCYTES 1.05(H) 0.30 - 0.82 x10'3/uL 03/17/2019 7:35 PM [facility] ABS. EOSINOPHILS 0.09 0.04 - 0.54 x10'3/uL 03/17/2019 7:35 PM [facility] ABS. BASOPHILS 0.08 0.01 - 0.08 x10'3/uL 03/17/2019 7:35 PM [facility] ABS. IMMATURE GRANULOCYTES 0.10 0.00 - 0.49 x10'3/uL 03/17/2019 7:35 PM [facility] 03/17/2019 7:17 PM FOILING MACHINE OPERATOR us Monica ACUNA LABORATORY Final Resu lt [facility] [address] [place] [address], * POCT glucose (03/17/2019 6:14 PM FOILING MACHINE OPERATOR) GLUCOSE POC 83 70 - 99 mg/dL 03/17/2019 6:15 PM FOILING MACHINE OPERATOR [facility] ORDERS INTERFACE 03/17/2019 6:14 PM FOILING MACHINE OPERATOR us Attending Physician Emergency MD POCT ORDERABLES - DEVICE Final Result [facility] ORDERS INTERFACE US documented in this [...] over 2-5 minutes. Given 03/17/2019 7:50 PM FOILING MACHINE OPERATOR sodium chloride 0.9% bolus infusion SOLN 1,000 mL 1,000 mL, Intravenous, Administer over 15 Minutes, Bolus (Once), 1 dose, On Priscila 03/17/19 at 2115 New Bag 03/17/2019 9:20 PM FOILING MACHINE OPERATOR 1,000 mLs documented in this encounter Active and Recently Administered Medications Times are shown in FOILING MACHINE OPERATOR. Scheduled Medication Order 03/15/2019 03/16/2019 03/17/2019 [email or web address] [...] RN) documented in this encounter Care Teams Property Disposal Manager Relationship Specialty Start Date End Date Clara Stanley APNP [address] [place] [address] PCP - General NURSE PRACTITIONER 06/01/18 documented as of this encounter
--- OUTSIDE RECORDS SUMMARY | 2024-03-02 04:03 | XMS_ITS | Encounter Summary ---
Author Organization [facility] Address [address] [place] [address]. [place], [place] [address] [place] [address] Care Team Providers Care Snow Technician Name Role Phone Clara Stanley Primary Care Provider +[phone] Reason for Visit * Reason Comments Follow Up Call Bleeding (Rectal) * Consultation (Routine) - Closed Specialty Diagnoses / Procedures Referred By Erik galdamez Referred To Contact GASTROENTEROLOGY Diagnoses Colon cancer screening Clara Stanley APNP [address] [place] [address] Phone: tel: fax: [facility] - [address], [address] [place] [phone] Phone: tel: fax: Referral ID Status Reason Start Date Expiration Date Visits Re quested Visits Authorized [id number] Closed 06/07/2018 07/08/2019 100 100 Encounter Details Date Type Department Care Team (Latest Contact Info) Description 07/06/2018 1:00 PM CDT Office Visit [facility] [address] [phone] Ting Nevarez MD [address] [place] [address] [phone] Follow Up Call; Bleeding (Rectal) Social History [...] file Gets together: Not on file Attends pentecostalism service: Not on file Active member of [...] are in agreement to proceed as planned. TING NEVAREZ MD 07/06/2018 documented in this encounter Plan of Treatment Upcoming Encounters Date Type Department Care Team (Late st Contact Info) Description 03/28/2024 7:30 AM WIND TURBINE ENGINEER Hospital Encounter [facility] [place] [address] Antwan Stone DPM [address], [place] [address] 03/28/2024 7:30 AM WIND TURBINE ENGINEER Anesthesia Event [facility] [place] [address] Shanelle Avila, REGISTRAR MUSEUM 1 [place] [address] 03/28/2024 7:30 AM WIND TURBINE ENGINEER - 03/28/2024 8:48 AM WIND TURBINE ENGINEER Surgery [facility] [place] [address] Antwan Stone, DPÁngel [address], [place] [address] REMOVAL OF HARDWARE LEFT FOOT 04/05/2024 8:30 AM WIND TURBINE ENGINEER Office Visit [facility] THREE [facility], [facility] [address] [place] [address] Dominick Mccloud MD Three [facility]. [facility] [address] [place], [place] [phone] Scheduled Procedures Name Priority Associated Diagnoses Date/Ti me REMOVAL PLATE SCREW OR PIN SCHED BY FAX 02/08/24 [facility] PHONE ASSESS 03/28/2024 7:30 AM WIND TURBINE ENGINEER documented as of this encounter Visit Diagnoses Diagnosis Adenomatous polyp of descending colon- Primary Painful orthopaedic hardware (CMS/HCC)- Primary documented in this encounter Care Teams Snow Technician Relationship Specialty Start Date End Date Clara Stanley APNP [address] [place] [address] PCP - General NURSE PRACTITIONER 06/01/18 documented as of this encounter
--- OUTSIDE RECORDS SUMMARY | 2024-03-02 04:03 | XMS_ITS | Encounter Summary ---
Author Organization [facility] Address [address] [place] [address]. [place], [place] [address] [place] [address] Care Team Providers Care Cloth Colors Examiner Name Role Phone Clara Stanley Primary Care Provider [phone] Reason for Visit * Reason Comments Cough Has cough and rib pa in. States he does not know but maybe his ribs hurt from coughing. Sometimes feels congested. Encounter Details Date Type Department Care Team (Late st Contact Info) Description 09/20/2018 11:40 AM CDT Office Visit [facility] Family and Sports Medicine - [address] [phone] Judy Charles, DO Cough (Has cough and [...] file Gets together: Not on file Attends church service: Not on file Active member of [...] 7:30 AM [facility] Hospital Encounter [facility] [address] Antwan Stone, DPÁngel [address], [place] [address] 03/28/2024 7:30 AM [facility] Anesthesia Event [place] [address] Shanelle Avila, RADIATION ONCOLOGY MANAGER [address] [place] [address] 03/28/2024 7:30 AM HOSPITAL CLEANER - 03/28/2024 8:48 AM [facility] Surgery [facility] [place] [address] Antwan Stone DPM [address], [place] [address] REMOVAL OF HARDWARE LEFT FOOT 04/05/2024 8:30 AM HOSPITAL CLEANER Office Visit Darren Hernandez'Marbella fleming [facility], [facility] [address] [place] [address] Dominick Mccloud MD Three [facility]. [facility] [address] [place] [address] Scheduled Procedures Name Priority Associated Diagnoses Date/Ti me REMOVAL PLATE SCREW OR PIN SCHED BY FAX 02/08/24 KAYLIE PHONE ASSESS 03/28/2024 7:30 AM HOSPITAL CLEANER documented as of this encounter Visit Diagnoses Diagnosis Cough- Primary Painful orthopaedic hardware (CMS/HCC)- Primary documented in this encounter Care Teams Cloth Colors Examiner Relationship Specialty Start Date End Date Clara Stanley APNP [address] [place] [address] PCP - General NURSE PRACTITIONER 06/01/18 documented as of this encounter
--- OUTSIDE RECORDS SUMMARY | 2024-03-02 04:03 | XMS_ITS | Encounter Summary ---
Author Organization [facility] Address [address] [place] [address]. [place], [place] [address] [place] [address] Care Team Providers Care At[employer]T Retailer Sales Consultant Name Role Phone Clara Stanley Primary Care Provider [phone] Encounter Details Date Type Department Care Team (Late st Contact Info) Description 07/05/2018 [facility] Documentation [facility] Family Medicine - [place] 5 [place] [address] Slava Perkins DO [address] [phone] Social History Tobacco Use Types [...] Perkins DO - 07/05/2018 10:11 PM CDT asphalt blender, doc halo with dr Delgado who recommended that if bleeding persists, go to ER, otherwise can call office in am. Spoke to pt who said no more bleeding and pt feels fine, but if it happens again, she will take him to ER as discussed * Slava Perkins DO - 07/05/2018 9:44 PM CDT asphalt blender called Pt had c-scope 5 days ago. [...] AM [facility] Hospital Encounter [facility] [place] [address] Antwan Stone DPM [address], [place] [address] 03/28/2024 7:30 AM DANCE ARTIST Anesthesia Event [facility] [place] [address] Shanelle Avila, FILM DEVELOPER 1 [place] [address] 03/28/2024 7:30 AM DANCE ARTIST - 03/28/2024 8:48 AM DANCE ARTIST Surgery [facility] [place] [address] Antwan Stone DPM [address], [place] [address] REMOVAL OF HARDWARE LEFT FOOT 04/05/2024 8:30 AM DANCE ARTIST Office Visit [place] [facility] THREE [facility], [facility] [address] [place] [address] Dominick Mccloud MD Three [facility]. [facility] [address] [place] [address] Scheduled Procedures Name Priority Associated Diagnoses Date/Ti me REMOVAL PLATE SCREW OR PIN SCHED BY FAX 02/08/24 KAYLIE PHONE ASSESS 03/28/2024 7:30 AM DANCE ARTIST documented as of this encounter Visit Diagnoses Not on filedocumented in this encounter Care Teams At[employer]T Retailer Sales Consultant Relationship Specialty Start Date End Date Clara Stanley APNP [address] [place] [address] PCP - General NURSE PRACTITIONER 06/01/18 documented as of this encounter
--- OUTSIDE RECORDS SUMMARY | 2024-03-02 04:03 | XMS_ITS | Encounter Summary ---
Author Organization [facility] Address [address] [place] [address]. [place] [address] [place] [address] Care Team Providers Care Oven Heater Name Role Phone Jerry Fatima MD Primary Care Provider Yan alvarado Encounter Details Date Type Department Care Team (Late Contact Info) Description 09/05/2014 Abstract [facility] Conversion Marjan Lai NP [address] [place] [address] Social History Tobacco Use Types Packs/Day [...] approved by: Keke Burr Date: 09/05/14 10:55 HIC MANAGER documented in this encounter Plan of Treatment Upcoming Encounters Date Type Department Care Team (Late st Contact Info) Description 03/28/2024 7:30 AM GRAPHIC MANAGER Hospital Encounter [facility] [place] [place] [address] Antwan Stone, DIEGO [address], [place] [address] 03/28/2024 7:30 AM GRAPHIC MANAGER Anesthesia [place] [address] Shanelle Avila, LAP LAYER 1 [place] [address] 03/28/2024 7:30 AM GRAPHIC MANAGER - 03/28/2024 8:48 AM GRAPHIC MANAGER Surgery [place] [address] Antwan Stone, DIEGO [address] [place], [place] [address] REMOVAL OF HARDWARE LEFT FOOT 04/05/2024 8:30 AM GRAPHIC MANAGER Office Visit [place] [facility] THREE [facility], [facility], [facility] [address] [place] [address] Dominick Mccloud MD Three [facility]. [facility] [address] [place] [address] Scheduled Procedures Name Priority Associated Diagnoses Date/Ti me REMOVAL PLATE SCREW OR PIN SCHED BY FAX 02/08/24 [facility] PHONE ASSESS 03/28/2024 7:30 AM GRAPHIC MANAGER documented as of this encounter Visit Diagnoses Not on filedocumented in this encounter Care Teams Oven Heater Relationship Specialty Start Date End Date Jerry Fatima MD PCP - General 01/11/15 05/31/18 documented as of this encounter
--- OUTSIDE RECORDS SUMMARY | 2024-03-02 04:04 | XMS_ITS | Encounter Summary ---
Author Organization [facility] Address [address] [place] [address]. [place] [address] [place] [address] Care Team Providers Care Sound Truck Operator Name Role Phone Jerry Fatima MD Primary Care Provider Yan alvarado Encounter Details Date Type Department Care Team (Late st Contact Info) Description 01/05/[address] [facility] [place] [address] Jaskaran Lubin MD Social History Tobacco Use [...] 7:30 AM ENVIRONMENTAL TECHNICAL OFFICER Hospital Encounter [facility] [place] [place] [address] Antwan Stone, DIEGO [address], [place] [address] 03/28/2024 7:30 AM ENVIRONMENTAL TECHNICAL OFFICER Anesthesia Event [facility] [place] [address] Shanelle Avila, CORDAGE SALES REPRESENTATIVE 1 [place] [address] 03/28/2024 7:30 AM ENVIRONMENTAL TECHNICAL OFFICER - 03/28/2024 8:48 AM ENVIRONMENTAL TECHNICAL OFFICER [place] [address] Antwan Stone, DPM [address], [place] [address] REMOVAL OF HARDWARE LEFT FOOT 04/05/2024 8:30 AM ENVIRONMENTAL TECHNICAL OFFICER Office Visit [place] [facility] THREE [facility], [facility] [address] [place] [address] Dominick Mccloud MD Three [facility]. [facility] [address] [place] [address] Scheduled Procedures Name Priority Associated Diagnoses Date/Ti me REMOVAL PLATE SCREW OR PIN SCHED BY FAX 02/08/24 [facility] PHONE ASSESS 03/28/2024 7:30 AM ENVIRONMENTAL TECHNICAL OFFICER documented as of this encounter Visit Diagnoses Diagnosis Routine general medical examination at a health care facility Painful orthopaedic hardware (CMS/HCC)- Primary documented in this encounter Care Teams Sound Truck Operator Relationship Specialty Start Date End Date Jerry Fatima MD PCP - General 01/11/15 05/31/18 documented as of this encounter
--- OUTSIDE RECORDS SUMMARY | 2024-03-02 04:04 | XMS_ITS | Encounter Summary ---
Author Organization [facility] Address [address] [place] [address]. [place], [place] [address] [place] [address] Care Team Providers Care Glucose And Syrup Weigher Name Role Phone Jerry Fatima MD Primary Care Provider Yan alvarado Encounter Details Date Type Department Care Team (Latest Contact Info) Description 01/05/2014 Abstract [facility] Medical Group Jaskaran Lubin MD [...] spouse. He is . 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 Hereports occasional alcohol use. He has never used illicit drugs. General Health: Lifestyle:. He does not have a healthy diet. He has weight concerns. He does not exercise regularly. He consumes alcohol. He denies drug use. Screening: Metabolic screening reviewed and updated. C/o itching on the back. Notices more after taking a hot shower, uses some cream he got from dielectric tester which he says is a little helpful [...] ZyrTEC Allergy 10 MG Oral Tablet; Therapy: (Recorded:[id number]) to Recorded Allergies 1. No Known Drug [...] skin dermatitis;PADMINI = N; Verified Transmission to [facility] [address]94; Last Updated By: KevinHypemarks; 01/05/2014 11:29:42 AM Health Maintenance 2. CMP / Liver Status: Active Requested for: 05Jan2014 Perform: Kiya [facility] Due: 04Feb2014; Last Updated By: Judy Chaudhary; 01/05/2014 11:43:14 AM; Ordered; For: Health Maintenance; Ordered By: Jaskaran Lubin 3. Lipid Profile Status: Active Requested for: 05Jan2014 Perform: Bhaktin[facility] Due: 04Feb2014; Last Updated By: Judy [...] to lose weight he needs to consume 1793-2136 per day further plan basing on the results Signatures Electronically signed by : Jaskaran Lubin M.D.; Jan 05 2014 12:04PM MANAGER BUDGET (Author) documented in this encounter Plan of Treatment Upcoming Encounters Date Type Department Care Team (Late st Contact Info) Description 03/28/2024 7:30 AM MANAGER BUDGET Hospital Encounter [facility] [place] [address] Antwan Stone DPM [address], [place] [address] 03/28/2024 7:30 AM MANAGER BUDGET Anesthesia [place] [address] Shaenlle Avila, CUSTOM SHOP WORKER [address] [place] [address] 03/28/2024 7:30 AM MANAGER BUDGET - 03/28/2024 8:48 AM MANAGER BUDGET Surgery [place] [address] Antwan Stone, DPM [address], [place] [address] REMOVAL OF HARDWARE LEFT FOOT 04/05/2024 8:30 AM MANAGER BUDGET Office Visit [facility]-O'F all[facility] THREE [facility], [facility] [address] [place], [place] [address] Dominick Mccloud MD Three [facility]. [facility] [address] [place], [place] [address] Scheduled Procedures Name Priority Associated Diagnoses Date/Ti me REMOVAL PLATE SCREW OR PIN SCHED BY FAX 02/08/24 KAYLIE PHONE ASSESS 03/28/2024 7:30 AM MANAGER BUDGET documented as of this encounter Procedures Procedure [...] on filedocumented in this encounter Care Teams Glucose And Syrup Weigher Relationship Specialty Start Date End Date Jerry Fatima MD PCP - General 01/11/15 05/31/18 documented as of this encounter
--- OUTSIDE RECORDS SUMMARY | 2024-03-02 04:04 | XMS_ITS | Encounter Summary ---
Author Organization [facility] Address [address] [place] [address]. [place], [place] [address] [place] [address] Care Team Providers Care Curing Room Supervisor Name Role Phone Jerry Fatima MD Primary Care Provider Yan alvarado Encounter Details Date Type Department Care Team (Latest Contact Info) Description 01/15/2012 Abstract [facility] Roberto Holman MD Social History [...] issues and he is aware of the intermediate designer health concerns of obesity contributing to HTN, [...] Holman M.D.; Jan 15 2012 12:31PM (Author) FORCE ADVISOR documented in this encounter Plan of Treatment Upcoming Encounters Date Type Department Care Team (Late st Contact Info) Description 03/28/2024 7:30 AM WORKFORCE ADVISOR Hospital Encounter [facility] [place] [address] Antwan Stone, DIEGO [address] [place], [place] [address] 03/28/2024 7:30 AM WORKFORCE ADVISOR Anesthesia Event [facility] [address] Shanelle Avila, POWDER PRESS OPERATOR 1 [place] [address] 03/28/2024 7:30 AM WORKFORCE ADVISOR - 03/28/2024 8:48 AM WORKFORCE ADVISOR Surgery [place] [address] Antwan Stone, DIEGO [address] [place], [place] [address] REMOVAL OF HARDWARE LEFT FOOT 04/05/2024 8:30 AM WORKFORCE ADVISOR Office Visit [facility] THREE [facility], [facility] [address] [place] [address] Dominick Mccloud MD Three [facility]. [facility] [address] [place] [address] Scheduled Procedures Name Priority Associated Diagnoses Date/Ti me REMOVAL PLATE SCREW OR PIN SCHED BY FAX 02/08/24 [facility] PHONE ASSESS 03/28/2024 7:30 AM WORKFORCE ADVISOR documented as of this encounter Visit Diagnoses Not on filedocumented in this encounter Care Teams Curing Room Supervisor Relationship Specialty Start Date End Date Jerry Fatima MD PCP - General 01/11/15 05/31/18 documented as of this encounter
--- OUTSIDE RECORDS SUMMARY | 2024-03-02 04:04 | XMS_ITS | Encounter Summary ---
Author Organization [facility] Address [address] [place] [address]. [place], [place] [address] [place] [address] Care Team Providers Care Social Staff Worker Name Role Phone Jerry Fatima MD Primary Care Provider Yan alvarado Encounter Details Date Type Department Care Team (Latest Contact Info) Description 11/07/2013 Abstract [facility] Medical Group Jaskaran Lubin MD Social [...] ZyrTEC Allergy 10 MG Oral Tablet; Therapy: (Recorded:[id number]) to Recorded Dispense: 0 Days ; #: Sufficient TABS; Refill: 0; PADMINI = N; Record; Last Updated By: Adilene Leong; 11/07/2013 2:12:18 PM Allergies 1. No Known Drug Allergies Recorded By: Keke Burr; 01/15/2012 11:06:49 AM Vitals Vital Signs [Data Includes: Current Encounter] Recorded by : Adilene Leong at [id number] 02:08PM Temperature 98.1 F Heart Rate 66 [...] pharyngitis; PADMINI = N; Verified Transmission to [facility] 43965; Last Updated By: [employer]; 11/07/2013 2:23:04 PM 2. Gargle with warm salt water for 5 minutes every 4 hours. Status: Complete Done: [id number] 02:28PM Ordered; For: Acute pharyngitis; Ordered By: Jaskaran Lubin azithromycin salt water gargling zyrtec schedule a yearly physical to call if symptoms don?t get better Signatures Electronically signed by : Jaskaran Lubin M.D.; Nov 07 2013 2:29PM HYDROLOGIST (Author) documented in this encounter Plan of Treatment Upcoming Encounters Date Type Department Care Team (Late st Contact Info) Description 03/28/2024 7:30 AM HYDROLOGIST Hospital Encounter [facility] [place] [address] Antwan Stone, DIEGO [address], [place] [address] 03/28/2024 7:30 AM HYDROLOGIST Anesthesia Event [place] [address] Shanelle Avila, ORIENTAL RUG STRETCHER 1 [place] [address] 03/28/2024 7:30 AM HYDROLOGIST - 03/28/2024 8:48 AM HYDROLOGIST Surgery [place] [address] Antwan Stone, DPM [address], [place] [address] REMOVAL OF HARDWARE LEFT FOOT 04/05/2024 8:30 AM HYDROLOGIST Office Visit [place] [facility] THREE [facility], [facility] [address] [place] [address] Dominick Mccloud MD Three [facility]. [facility] [address] [place] [address] Scheduled Procedures Name Priority Associated Diagnoses Date/Ti me REMOVAL PLATE SCREW OR PIN SCHED BY FAX 02/08/24 [facility] PHONE ASSESS 03/28/2024 7:30 AM HYDROLOGIST documented as of this encounter Visit Diagnoses Not on filedocumented in this encounter Care Teams Social Staff Worker Relationship Specialty Start Date End Date Jerry Fatima MD PCP - General 01/11/15 05/31/18 documented as of this encounter
--- OUTSIDE RECORDS SUMMARY | 2024-03-02 04:04 | XMS_ITS | Encounter Summary ---
Author Organization [facility] Address [address] [place] [address]. [place], [place] [address] [place] [address] Care Team Providers Care Credit Collections Clerk Name Role Phone Jerry Fatima MD Primary Care Provider Yan alvarado Encounter Details Date Type Department Care Team (Latest Contact Info) Description 05/10/2012 Abstract [facility] Medical Group Roberto Holman MD Social History [...] Comments Blood Pressure 142/82 05/10/2012 9:50 AM BAKERY PRODUCTS CHECKER Pulse 57 05/10/2012 9:50 AM BAKERY PRODUCTS CHECKER Temperature - - Respiratory Rate - - Oxygen Saturation - - Inhaled Oxygen Concentration - - Weight 166.9 kg (368 lb) 05/10/2012 9:50 AM BAKERY PRODUCTS CHECKER Height - - Body Mass Index 46 [...] Tablet; Refill: 0; Record; Last Updated By: Keke Burr 2. Benzonatate 200 MG Oral Capsule; TAKE 1 CAPSULE THREE TIMES DAILY PRN; Therapy: [id number] to (Last Rx:[id number]) Requested for: [id number] Ordered; For: Cough (786.2); Rx By: Roberto Holman; Dispense: 0 Days ; #:21 Capsule; Refill: 0; Verified Transmission to [employer] [facility] # [id number]; Last Updated By: Keke Burr 3. Clotrimazole-Betamethasone 1-0.05 % External Cream; apply BID; Therapy: [id number] to Recorded; Dispense: 0 Days ; #: Sufficient GM; Refill: 0; Record; Last Updated By: Keke Burr 4. Triamcinolone Acetonide 0.1 % External Cream; apply twice daily PRN; Therapy: 12Anz4863 to (Last Rx:[id number]) Requested for: [id number] Ordered; For: Itching (Pruritus) (698.9); Rx By: Roberto Holman; Dispense: 0 Days ; #:80 GM; Refill:0; Verified Transmission to [employer] # [id number]; Last Updated By: Keke Burr Allergies 1. No Known Drug Allergies No Known Drug Allergies Vitals Vital Signs [Data Includes: Current Encounter] [id number] 09:50AM Heart Rate 57 Respiration 18 Systolic [...] TABLET A DAY FOR 4 DAYS; Therapy: 50Vvq0699 to 43Viv8508; Last Rx:[id number]; Status: DISCONTINUED Ordered; For: Cough (786.2); Rx By: Roberto Holman; Dispense: 0 Days ; #:6 Tablet; Refill: 0; Sent To: [employer] # [id number]; Last Updated By: Keke Burr 2. PredniSONE 20 MG Oral Tablet; TAKE 3 TABLETS DAILY FOR 3 DAYS, THEN 2 TABLETS DAILY FOR 3 DAYS, THEN 1 TABLET DAILY FOR 3 DAYS; Therapy: 75Zbj8869 to 94Zyv8007; Last Rx:[id number]; Status: DISCONTINUED Ordered; For: Itching (Pruritus) (698.9); Rx By: Roberto Holman; Dispense: 0 Days ; #:18 Tablet; Refill: 0; Sent To: [employer] # [id number]; Last Updated By: Keke Burr as above Signatures Electronically signed by : Roberto Holman M.D.; May 10 2012 10:26AM (Author) RY PRODUCTS CHECKER documented in this encounter Plan of Treatment Upcoming Encounters Date Type Department Care Team (Late st Contact Info) Description 03/28/2024 7:30 AM BAKERY PRODUCTS CHECKER Hospital Encounter [facility] [place] [address] Antwan Stone DPM [address], [place] [address] 03/28/2024 7:30 AM BAKERY PRODUCTS CHECKER Anesthesia Event [place] [address] Shanelle Avila, HAIRPIECE STYLIST 1 [place] [address] 03/28/2024 7:30 AM BAKERY PRODUCTS CHECKER - 03/28/2024 8:48 AM BAKERY PRODUCTS CHECKER Surgery [place] [address] Antwan Stone DPM [address] [place] [address] REMOVAL OF HARDWARE LEFT FOOT 04/05/2024 8:30 AM BAKERY PRODUCTS CHECKER Office Visit [facility] THREE [facility], [facility] [address] [place] [address] Dominick Mccloud MD Three [facility]. [facility] [address] [place] [address] Scheduled Procedures Name Priority Associated Diagnoses Date/Ti me REMOVAL PLATE SCREW OR PIN SCHED BY FAX 02/08/24 [facility] PHONE ASSESS 03/28/2024 7:30 AM BAKERY PRODUCTS CHECKER documented as of this encounter Visit Diagnoses Not on filedocumented in this encounter Care Teams Credit Collections Clerk Relationship Specialty Start Date End Date Jerry Fatima MD PCP - General 01/11/15 05/31/18 documented as of this encounter
--- OUTSIDE RECORDS SUMMARY | 2024-03-02 04:04 | XMS_ITS | Encounter Summary ---
Author Organization [facility] Address [address] [place] [address]. [place], [place] [id number] [place] [address] Care Team Providers Care Clinical Reviewer Name Role Phone Jerry Fatima MD Primary Care Provider Yan alvarado Encounter Details Date Type Department Care Team (Late st Contact Info) Description 10/14/[address] [place] [place] [address] Roberto Holman MD Social History Tobacco Use [...] st Contact Info) Description 03/28/2024 7:30 AM BRICKLAYER APPRENTICE Hospital Encounter [facility] [place] [address] Antwan Stone DPM [address], [place] [address] 03/28/2024 7:30 AM BRICKLAYER APPRENTICE Anesthesia Event [facility] [place] [address] Shanelle Avila, STUDENT SERVICES REPRESENTATIVE [address] [place] [address] 03/28/2024 7:30 AM BRICKLAYER APPRENTICE - 03/28/2024 8:48 AM BRICKLAYER APPRENTICE Surgery [facility] [place] [address] Antwan Stone, DPM [address], [place] [address] REMOVAL OF HARDWARE LEFT FOOT 04/05/2024 8:30 AM BRICKLAYER APPRENTICE Office Visit [facility] THREE [facility], [facility] [address] [place], [place] [address] Dominick Mccloud MD Three [facility]. [facility] [address] [place] [address] Scheduled Procedures Name Priority Associated Diagnoses Date/Ti me REMOVAL PLATE SCREW OR PIN SCHED BY FAX 02/08/24 [facility] PHONE ASSESS 03/28/2024 7:30 AM BRICKLAYER APPRENTICE documented as of this encounter Visit Diagnoses Diagnosis Other laboratory examination Painful orthopaedic hardware (CMS/HCC)- Primary documented in this encounter Care Teams Clinical Reviewer Relationship Specialty Start Date End Date Jerry Fatima MD PCP - General 01/11/15 05/31/18 documented as of this encounter
--- OUTSIDE RECORDS SUMMARY | 2024-03-02 04:04 | XMS_ITS | Encounter Summary ---
Author Organization [facility] Address [address] [place] [address]. [place] [address] [place] [address] Care Team Providers Care Asphalt Distributor Tender Name Role Phone Jerry Fatima MD Primary Care Provider Yan alvarado Encounter Details Date Type Department Care Team (Late st Contact Info) Description 11/17/[address] [facility] [place] [address] , Marge Carreon MD Social History Tobacco [...] Contact Info) Description 03/28/2024 7:30 AM DENTAL CHAIRSIDE ASSISTANT Hospital Encounter [facility] [place] [address] Antwan Stone DPM [address], [place] [address] 03/28/2024 7:30 AM DENTAL CHAIRSIDE ASSISTANT Anesthesia Event [facility] [place] [address] Shanelle Avila, SECURITIES SUPERVISOR [address] [place] [address] 03/28/2024 7:30 AM DENTAL CHAIRSIDE ASSISTANT - 03/28/2024 8:48 AM DENTAL CHAIRSIDE ASSISTANT Surgery [place] [address] Antwan Stone, DPM [address] [place] [address] REMOVAL OF HARDWARE LEFT FOOT 04/05/2024 8:30 AM DENTAL CHAIRSIDE ASSISTANT Office Visit [place] [facility] THREE [facility], [facility] [address] [place], [place] [id number] Dominick Mccloud MD Three [facility]. [facility] [address] [place], [place] [address] Scheduled Procedures Name Priority Associated Diagnoses Date/Ti me REMOVAL PLATE SCREW OR PIN SCHED BY FAX 02/08/24 [facility] PHONE ASSESS 03/28/2024 7:30 AM DENTAL CHAIRSIDE ASSISTANT documented as of this encounter Visit Diagnoses Not on filedocumented in this encounter Care Teams Asphalt Distributor Tender Relationship Specialty Start Date End Date Jerry Fatima MD PCP - General 01/11/15 05/31/18 documented as of this encounter
--- OUTSIDE RECORDS SUMMARY | 2024-03-02 04:04 | XMS_ITS | Encounter Summary ---
Author Organization [facility] Address [address] [place] [address]. [place] [address] [place] [address] Care Team Providers Care Pollution Control Technician Name Role Phone Jerry Fatima MD Primary Care Provider Yan alvarado Encounter Details Date Type Department Care Team (Late st Contact Info) Description 11/09/2008 Abstract [facility] [place] [address] Marge Bansal MD Social History Tobacco Use [...] st Contact Info) Description 03/28/2024 7:30 AM PC TECHNICIAN [facility] [place] [address] Antwan Stone DPM [address], [place] [address] 03/28/2024 7:30 AM PC TECHNICIAN Anesthesia [place] [address] Shanelle Avila, ECOMMERCE MARKETING SPECIALIST 1 [place] [address] 03/28/2024 7:30 AM PC TECHNICIAN - 03/28/2024 8:48 AM PC TECHNICIAN Surgery [facility] [place] [address] Antwan Stone, DPM [address], [place] [address] REMOVAL OF HARDWARE LEFT FOOT 04/05/2024 8:30 AM PC TECHNICIAN Office Visit [place] [facility] THREE [facility], [facility] [address] [place], [place] [address] Dominick Mccloud MD Three [facility]. [facility] [address] [place], [place] [address] Scheduled Procedures Name Priority Associated Diagnoses Date/Ti me REMOVAL PLATE SCREW OR PIN SCHED BY FAX 02/08/24 [facility] PHONE ASSESS 03/28/2024 7:30 AM PC TECHNICIAN documented as of this encounter Visit Diagnoses Not on filedocumented in this encounter Care Teams Pollution Control Technician Relationship Specialty Start Date End Date Jerry Fatima MD PCP - General 01/11/15 05/31/18 documented as of this encounter
--- OUTSIDE RECORDS SUMMARY | 2024-03-02 04:18 | XMS_ITS | Encounter Summary ---
Author Organization [facility] Address [address] [place] [address] Care Team Providers Care Rubber Gasket Inspector Trimmer Name Role Phone Clara Stanley Primary Care Provider + Jasper Canchola MD Unavailable Alexis Lopez MD Unavailable Kip Del Rio MD Unavailable Jacob Flynn MD Unavailable Renetta Ballesteros NP Unavailable Encounter Details Date Type Department Care Team (Late st Contact Info) Description 02/25/2024 2:15 PM ELL TEACHER Lab [facility] [address] [address] Neuroendocrine carcinoma of lung (HCC); [...] on file Legal Sex Male 1:17 AM ELL TEACHER Gender Identity Not on file Sexual Orientation Straight 09/22/2019 8: 21 PM CDT 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 on file Not on file documented as of this encounter Plan of Treatment Not on file documented as of this encounter Procedures Procedure Name Priority Date/Time Associated Diagnosis Comments EGFR STAT 02/25/2024 2:21 PM ELL TEACHER Neuroendocrine carcinoma of lung (HCC) DIFFERENTIAL AUTO STAT 02/25/2024 2:2 1 PM ELL TEACHER Neuroendocrine carcinoma of lung (HCC) CBC WITH AUTO DIFFERENTIAL STAT 02/25/2024 2:21 PM ELL TEACHER Neuroendocrine carcinoma of lung (HCC) COMPREHENSIVE METABOLIC PANEL STAT 02/25/2024 2:21 PM ELL TEACHER Neuroendocrine carcinoma of lung (HCC) documented in this encounter Results * eGFR (02/25/2024 2:21 PM ELL TEACHER) eGFR >90 >=60 mL/min/1. 73 m2 Comment: [...] was last reviewed 2021. Testing performed by: [address] [address] Blood 02/25/2024 2:21 PM ELL TEACHER 02/25/2024 2:35 PM ELL TEACHER us Kpi Del Rio MD LAB BLOOD ORDERABLES Final Result [facility] [address] [place] [address] * (ABNORMAL) Differential, auto (02/25/2024 2:21 PM ELL TEACHER) Neutrophil abs 5.1 1.5 - 6.5 K/cumm Comment:Testing performed by : [address] [address] Imm gran abs 0.0 0.0 - 0.1 K/cumm [facility] Comment:Testing performed by : [address] [address] Lymphocyte abs 1.1 0.8 - 3.3 K/cumm [facility] Comment:Testing performed by : [address] [address] Monocyte abs 1.0(H) 0.2 - 0.8 K/cumm [facility] Comment:Testing performed by : [address] [address] Eosinophil abs 0.3 0.0 - 0.5 K/cumm SEJ[facility] Comment:Testing performed by : [address] [address] Basophil abs 0.0 0.0 - 0.1 K/cumm SEJ[facility] Comment:Testing performed by : [address] [address] Neutrophil pct 67.4 % [facility] Comment: Interpretive Data Percent cell count reference ranges are not reported, since discordance with absolute values may lead to misinterpretation of CBC data. Current Interpretive Data was last revised on 2017. Testing performed by: [address] [address] Imm gran pct 0.4 % [facility] Comment: Interpretive Data Percent cell count reference ranges are not reported, since discordance with absolute values may lead to misinterpretation of CBC data. Current Interpretive Data was last revised on 2017. Testing performed by: [address] [address] Lymphocyte pct 15.0 % [facility] Comment: Interpretive Data Percent cell count reference ranges are not reported, since discordance with absolute values may lead to misinterpretation of CBC data. Current Interpretive Data was last revised on 2017. Testing performed by: [address] [address] Monocyte pct 13.4 % [facility] Comment: Interpretive Data Percent cell count reference ranges are not reported, since discordance with absolute values may lead to misinterpretation of CBC data. Current Interpretive Data was last revised on 2017. Testing performed by: [address] [address] Eosinophil pct 3.5 % [facility] Comment: Interpretive Data Percent cell count reference ranges are not reported, since discordance with absolute values may lead to misinterpretation of CBC data. Current Interpretive Data was last revised on 2017. Testing performed by: [address] [address] Basophil pct 0.3 % [facility] Comment: Interpretive Data Percent cell count reference ranges are not reported, since discordance with absolute values may lead to misinterpretation of CBC data. Current Interpretive Data was last revised on 2017. Testing performed by: [address] [address] Blood 02/25/2024 2:21 PM ELL TEACHER 02/25/2024 2:35 PM ELL TEACHER us Kip Del Rio MD LAB BLOOD ORDERABLES Final Result [facility] [address] [facility] Department [place] [address] * (ABNORMAL) Comprehensive metabolic panel (02/25/2024 2:21 PM ELL TEACHER) Sodium 138 135 - 145 mmol/L Comment:Testing performed by : [address] [address] Potassium, pl 4.1 3.3 - 4.9 mmol/L [facility] Comment:Testing performed by : [address] [address] Chloride 101 97 - 110 mmol/L [facility] Comment:Testing performed by : [address] [address] CO2 28 22 - 32 mmol/L [facility] Comment:Testing performed by : [address] [address] Anion gap 9 2 - 15 mmol/L [facility] Comment:Testing performed by : [address] [address] BUN 14 6 - 25 mg/dL [facility] Comment:Testing performed by : [address] [address] Creatinine 0.70(L) 0.80 - 1.30 mg/dL [facility] Comment:Testing performed by : [address] [address] Glucose 98 70 - 199 mg/dL [facility] [...] was last revised 2022. Testing performed by: [address] [place]., [address] Calcium 9.9 8.5 - 10.3 mg/dL [facility] Comment:Testing performed by : [address] [address] Bilirubin, total 0.3 0.1 - 1.2 mg/dL [facility] Comment:Testing performed by : [address] [address] Protein, pl 7.6 6.5 - 8.5 g/dL SE[facility] Comment:Testing performed by : [address] [address] Albumin 4.4 3.5 - 5.0 g/dL [facility] Comment:Testing performed by : [address] [address] Alk phos 94 40 - 130 Units/L SEJ[facility] Comment:Testing performed by : [address] [address] ALT 18 7 - 55 Units/L SE[facility] Comment:Testing performed by : [address] [address] AST 21 10 - 50 Units/L [facility] Comment:Testing performed by : [address] [address] Blood 02/25/2024 2:21 PM ELL TEACHER 02/25/2024 2:35 PM ELL TEACHER us Kip Del Rio MD LAB BLOOD ORDERABLES Final Result [facility] [address] [facility] Department [place] [address] * (ABNORMAL) CBC with auto differential (02/25/2024 2:21 PM ELL TEACHER) [facility] WBC 7.5 3.8 - 9.9 K/cumm Comment:Testing performed by : [address] [address] Hgb 13.9 13.0 - 17.5 g/dL SE[facility] Comment:Testing performed by : [address] [address] Hct 41.3 38.9 - 50.3 % [facility] Comment:Testing performed by : [address], [address] Plt 144(L) 150 - 400 K/cumm [facility] Comment:Testing performed by : [address] [address] MPV 11.5 9.1 - 12.3 fL [facility] Comment:Testing performed by : [address], [address] RBC 4.31 4.30 - 5.80 M/cumm SE[facility] Comment:Testing performed by : [address], [address] MCV 95.8 81.3 - 96.4 fL [facility] Comment:Testing performed by : [address], [address] MCH 32.3 27.1 - 33.3 pg SEJ[facility] Comment:Testing performed by : [address], [address] MCHC 33.7 32.3 - 35.7 g/dL SEJ[facility] Comment:Testing performed by : [address], [address] RDW CV 15.1(H) 11.1 - 14.9 % SE[facility] Comment:Testing performed by : [address], [address] RDW SD 54.1(H) 35.7 - 48.1 fL [facility] Comment:Testing performed by : [address], [address] NRBC abs 0.00 0.00 - 0.01 K/cumm [facility] Comment:Testing performed by : [address], [address] Blood 02/25/2024 2:21 PM ELL TEACHER 02/25/2024 2:35 PM ELL TEACHER us Kip Del Rio MD LAB BLOOD ORDERABLES Final Result [facility] [address] [facility] [place] [address] documented in this encounter Visit Diagnoses Diagnosis 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 documented in this encounter Care Teams Rubber Gasket Inspector Trimmer Relationship Specialty Start Date End Date Clara Stanley PA [address] [place] [address] PCP - General Nurse Practitioner 04/05/19 Jasper Canchola MD [address] [place] [address] Surgeon Thoracic Surgery 05/11/19 Alexis Lopez MD [address] [address] Show Design Supervisor Pulmonary Disease 05/11/19 Kip Del Rio MD [address] [place] [address] Medical Oncologist/Hole Digger Hematology and Oncology 05/11/19 Jacob Flynn MD [address] [place] [address] Radiation Oncologist Radiation Oncology 05/25/19 Renetta Ballesteros NP [address] [place] [address] Nurse Practitioner Radiation Oncology 06/11/22 documented as of this encounter
--- OUTSIDE RECORDS SUMMARY | 2024-03-02 04:18 | XMS_ITS ---
Author Organization [facility] Address [address] [place] [address] Care Team Providers Care Plug Assembler Name Role Phone Clara Stanley Primary Care Provider + Jasper Canchola MD Unavailable Alexis Lopez MD Unavailable [phone] Kip Del Rio MD Unavailable Jacob Flynn MD Unavailable [phone] Renetta Ballesteros NP Unavailable Active Problems Problem [...] pressure. Assessment & Plan (02/26/2022 2:50 PM EDGE BANDING MACHINE OFFBEARER): Patient will continue with positional therapy. I did encourage the patient to resume CPAP therapy at an auto titrating range of 5-20 cm water pressure. Assessment & Plan (02/01/2021 11:11 AM EDGE BANDING MACHINE OFFBEARER): The patient has an auto titrating CPAP unit with a range of 5-20 cm water pressure. He is going to restart CPAP therapy. I will send an order to [facility] for new supplies. Assessment & Plan (10/05/2020 11:01 AM CDT): I did encourage the patient to use the auto titrating CPAP unit with a range of 5-20 cm water pressure. His DME is [employer]. Assessment & Plan (04/06/2020 9:51 AM EDGE BANDING MACHINE OFFBEARER): The patient was encouraged to resume auto [...] need for supplies. The DME company is [employer]. The patient is benefitting from CPAP therapy. Assessment & Plan (12/02/2019 9:49 AM CDT): The patient just received his auto titrating CPAP unit with a range of 5-20 cm water pressure. His DME is [employer]. Mild intermittent asthma without complication Overview (06/04/2021): [...] [place]. Assessment & Plan (02/26/2022 2:51 PM EDGE BANDING MACHINE OFFBEARER): The patient was given a trial of [...] PFT. Assessment & Plan (02/01/2021 11:10 AM EDGE BANDING MACHINE OFFBEARER): I did recommend that the patient try to use the Symbicort b.i.d. for period of time to see if this will resolve the coughing. Continues to use the albuterol on a p.r.n. basis. He continues on Flonase and Zyrtec daily. He does have some reflux symptoms and I did recommend that he try an yoyl-gnk-vkwllyi proton pump inhibitor. Assessment & Plan (10/05/2020 11:01 AM CDT): The patient is breathing has been under good control with albuterol MDI, Symbicort and Flonase. Assessment & Plan (04/06/2020 9:51 AM EDGE BANDING MACHINE OFFBEARER): The patient will continue with Symbicort 2 [...] (06/04/2021): Added automatically from request for surgery [id number] Added automatically from request for surgery [id number] Last Assessment & Plan: The patient's cough has essentially resolved with treatment of his cough variant of asthma with Symbicort, gastroesophageal reflux with Pepcid and Flonase for postnasal drip. I did tell him he could try stopping the Flonase and/or the Pepcid to see if the Symbicort alone would control the cough. Added automatically from request for surgery [id number] Last Assessment & Plan: The patient's cough [...] PM CDT): The patient did see the order checker but he did not reveal a reason [...] dry cough now. He did see the order checker and allergy shots versus Dupixent is being considered. He will continue on Protonix 40 mg daily. I will consider bronchoscopy if the allergy shots/Dupixent do not control the cough. Assessment & Plan (02/26/2022 2:52 PM EDGE BANDING MACHINE OFFBEARER): Patient will continue treating the asthma with [...] with Flonase and Hui for now. The order checker skin test is pending. I will check a methacholine challenge since he recently had normal PFTs. Allergies 07/11/2019 Assessment & Plan (08/08/2022 9:59 AM CDT): The patient has not heard from the order checker. I did send a message to our office staff to follow-up. LEIDA (acute kidney injury) ([facility]) 05/28/2019 Overview (06/04/2021): Last Assessment [...]
--- OUTSIDE RECORDS SUMMARY | 2024-03-02 04:18 | XMS_ITS | Clinical Summary ---
Author Organization [facility] Address [address] [place] [address] Care Team Providers Care Batch Analyst Name Role Phone Clara Stanley Primary Care Provider + Jasper Canchola MD Unavailable Alexis Lopez MD Unavailable Kip Del Rio MD Unavailable Jacob Flynn MD Unavailable Renetta Ballesteros NP Unavailable [phone] Allergies No known active allergies Medications amLODIPine [...] pressure. Assessment & Plan (02/26/2022 2:50 PM TELEPHONE SERVICES SALES REPRESENTATIVE): Patient will continue with positional therapy. I did encourage the patient to resume CPAP therapy at an auto titrating range of 5-20 cm water pressure. Assessment & Plan (02/01/2021 11:11 AM TELEPHONE SERVICES SALES REPRESENTATIVE): The patient has an auto titrating CPAP unit with a range of 5-20 cm water pressure. He is going to restart CPAP therapy. I will send an order to [employer] for new supplies. Assessment & Plan (10/05/2020 11:01 AM CDT): I did encourage the patient to use the auto titrating CPAP unit with a range of 5-20 cm water pressure. His DME is [employer]. Assessment & Plan (04/06/2020 9:51 AM TELEPHONE SERVICES SALES REPRESENTATIVE): The patient was encouraged to resume auto [...] need for supplies. The DME company is [employer]. The patient is benefitting from CPAP therapy. [...] Amador. Assessment & Plan (02/26/2022 2:51 PM TELEPHONE SERVICES SALES REPRESENTATIVE): The patient was given a trial of [...] PFT. Assessment & Plan (02/01/2021 11:10 AM TELEPHONE SERVICES SALES REPRESENTATIVE): I did recommend that the patient try to use the Symbicort b.i.d. for period of time to see if this will resolve the coughing. Continues to use the albuterol on a p.r.n. basis. He continues on Flonase and Zyrtec daily. He does have some reflux symptoms and I did recommend that he try an [id number] proton pump inhibitor. Assessment & Plan (10/05/2020 11:01 AM CDT): The patient is breathing has been under good control with albuterol MDI, Symbicort and Flonase. Assessment & Plan (04/06/2020 9:51 AM TELEPHONE SERVICES SALES REPRESENTATIVE): The patient will continue with Symbicort 2 [...] (06/04/2021): Added automatically from request for surgery [id number] Added automatically from request for surgery [id number] Last Assessment & Plan: The patient's cough has essentially resolved with treatment of his cough variant of asthma with Symbicort, gastroesophageal reflux with Pepcid and Flonase for postnasal drip. I did tell him he could try stopping the Flonase and/or the Pepcid to see if the Symbicort alone would control the cough. Added automatically from request for surgery [id number] Last Assessment & Plan: The patient's cough [...] PM CDT): The patient did see the wire preparation machine tender but he did not reveal a reason [...] dry cough now. He did see the wire preparation machine tender and allergy shots versus Dupixent is being considered. He will continue on Protonix 40 mg daily. I will consider bronchoscopy if the allergy shots/Dupixent do not control the cough. Assessment & Plan (02/26/2022 2:52 PM TELEPHONE SERVICES SALES REPRESENTATIVE): Patient will continue treating the asthma with [...] with Flonase and Hui for now. The wire preparation machine tender skin test is pending. I will check a methacholine challenge since he recently had normal PFTs. Allergies 07/11/2019 Assessment & Plan (08/08/2022 9:59 AM CDT): The patient has not heard from the wire preparation machine tender. I did send a message to our office staff to follow-up. LEIDA (acute kidney injury) ([facility]) 05/28/2019 Overview (06/04/2021): Last Assessment & Plan: Elevated Cr of 1.35. Hyponatremia to 127 Restart acetazolamide. AM BMP Last Assessment & Plan: Elevated Cr of 1.35. Hyponatremia to 127 Restart acetazolamide. AM BMP Assessment & Plan (05/30/2019 7:45 AM CDT): Elevated Cr of 1.35. Hyponatremia to 127 Restart acetazolamide. 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 [address] [place] [phone] Imelda De Leon RN 02/18/2024 10:40 AM TELEPHONE SERVICES SALES REPRESENTATIVE Office Visit 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 [address] [place] [address] 5 [place] [address] Kip Del Rio MD 01/18/[address] [facility] [address] [place] [address] 5 [place] [address] Cheri Leonard DNP 01/18/[address] 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 Lab [facility] Floor 5 [place] [address] 12/24/[address] 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 [address] [place] [address] [place] [address] [place] [address] Imelda De Leon RN 12/03/[address] [facility] [address] [place] [address] [place] [address] [place] [address] Kip Del Rio MD 12/03/[address] 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 on file Not on file Obstetrics History Last Filed Vital Signs Vital Sign Reading Time Taken Comments Blood Pressure 132/77 02/18/2024 9:58 AM TELEPHONE SERVICES SALES REPRESENTATIVE Pulse 101 02/18/2024 9:58 AM TELEPHONE SERVICES SALES REPRESENTATIVE Temperature 36.4 ??C (97.6 ??F) 02/18/2024 9:58 AM CS T Respiratory Rate 19 02/18/2024 9:58 AM TELEPHONE SERVICES SALES REPRESENTATIVE Oxygen Saturation 99% 02/18/2024 9:58 AM TELEPHONE SERVICES SALES REPRESENTATIVE Inhaled Oxygen Concentration - - Weight 153 kg (337 lb 6.4 oz) 02/18/2024 9:58 AM TELEPHONE SERVICES SALES REPRESENTATIVE Height 190.5 cm (6' 3 ) 02/16/2024 4:53 PM TELEPHONE SERVICES SALES REPRESENTATIVE Body Mass Index 42.17 02/16/2024 4:53 PM TELEPHONE SERVICES SALES REPRESENTATIVE Plan of Treatment Health Maintenance Due Date [...] Diagnosis Comments EGFR STAT 02/25/2024 2:21 PM TELEPHONE SERVICES SALES REPRESENTATIVE Neuroendocrine carcinoma of lung (HCC) DIFFERENTIAL AUTO STAT 02/25/2024 2:2 1 PM TELEPHONE SERVICES SALES REPRESENTATIVE Neuroendocrine carcinoma of lung (HCC) COMPREHENSIVE METABOLIC PANEL STAT 02/25/2024 2:21 PM TELEPHONE SERVICES SALES REPRESENTATIVE Neuroendocrine carcinoma of lung (HCC) CBC WITH AUTO DIFFERENTIAL STAT 02/25/2024 2:21 PM TELEPHONE SERVICES SALES REPRESENTATIVE Neuroendocrine carcinoma of lung (HCC) EGFR Routine 02/18/2024 9:52 AM TELEPHONE SERVICES SALES REPRESENTATIVE 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) DIFFERENTIAL AUTO Routine 02/18/2024 9:5 2 AM TELEPHONE SERVICES SALES REPRESENTATIVE 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) CBC WITH AUTO DIFFERENTIAL Routine 02/18/2024 9:52 AM TELEPHONE SERVICES SALES REPRESENTATIVE 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) COMPREHENSIVE METABOLIC PANEL Routine 02/18/2024 9:52 AM TELEPHONE SERVICES SALES REPRESENTATIVE 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) CT CHEST ABDOMEN PELVIS W CONTRAST Schedule Routine, Read Routine (OP Routine) 02/16/2024 6:28 PM TELEPHONE SERVICES SALES REPRESENTATIVE 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) MRI BRAIN W WO CONTRAST Schedule Routine, Read Routine (OP Routine) 02/16/2024 5:42 PM TELEPHONE SERVICES SALES REPRESENTATIVE 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) DIFFERENTIAL AUTO Routine 01/21/2024 8:5 9 AM TELEPHONE SERVICES SALES REPRESENTATIVE 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) CBC WITH AUTO DIFFERENTIAL Routine 01/21/2024 8:59 AM TELEPHONE SERVICES SALES REPRESENTATIVE 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) EGFR Routine 01/21/2024 8:57 AM TELEPHONE SERVICES SALES REPRESENTATIVE 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 73 m2 Comment: [...] was last reviewed 2021. Testing performed by: [address] [address] Blood 02/25/2024 2:21 PM TELEPHONE SERVICES SALES REPRESENTATIVE 02/25/2024 2:35 PM TELEPHONE SERVICES SALES REPRESENTATIVE us Kip Del Rio MD LAB BLOOD ORDERABLES Final Result [facility] Department [place] [address] * (ABNORMAL) Differential, auto (02/25/2024 2:21 PM TELEPHONE SERVICES SALES REPRESENTATIVE) Neutrophil abs 5.1 1.5 - 6.5 K/cumm Comment:Testing performed by : [address] [address] Imm gran abs 0.0 0.0 - 0.1 K/cumm SEJAL Comment:Testing performed by : [address] [address] Lymphocyte abs 1.1 0.8 - 3.3 K/cumm SEJAL Comment:Testing performed by : [address] [address] Monocyte abs 1.0(H) 0.2 - 0.8 K/cumm SEJAL Comment:Testing performed by : [address] [address] Eosinophil abs 0.3 0.0 - 0.5 K/cumm SEJAL Comment:Testing performed by : [address] [address] Basophil abs 0.0 0.0 - 0.1 K/cumm SEJAL Comment:Testing performed by : [address] [address] Neutrophil pct 67.4 % [facility] Comment: Interpretive Data Percent cell count reference ranges are not reported, since discordance with absolute values may lead to misinterpretation of CBC data. Current Interpretive Data was last revised on 2017. Testing performed by: [address] [address] Imm gran pct 0.4 % [facility] Comment: Interpretive Data Percent cell count reference ranges are not reported, since discordance with absolute values may lead to misinterpretation of CBC data. Current Interpretive Data was last revised on 2017. Testing performed by: [address] [address] Lymphocyte pct 15.0 % [facility] Comment: Interpretive Data Percent cell count reference ranges are not reported, since discordance with absolute values may lead to misinterpretation of CBC data. Current Interpretive Data was last revised on 2017. Testing performed by: [address] [address] Monocyte pct 13.4 % [facility] Comment: Interpretive Data Percent cell count reference ranges are not reported, since discordance with absolute values may lead to misinterpretation of CBC data. Current Interpretive Data was last revised on 2017. Testing performed by: [address] [address] Eosinophil pct 3.5 % [facility] Comment: Interpretive Data Percent cell count reference ranges are not reported, since discordance with absolute values may lead to misinterpretation of CBC data. Current Interpretive Data was last revised on 2017. Testing performed by: [address] [address] Basophil pct 0.3 % [facility] Comment: Interpretive Data Percent cell count reference ranges are not reported, since discordance with absolute values may lead to misinterpretation of CBC data. Current Interpretive Data was last revised on 2017. Testing performed by: [address] [address] Blood 02/25/2024 2:21 PM TELEPHONE SERVICES SALES REPRESENTATIVE 02/25/2024 2:35 PM TELEPHONE SERVICES SALES REPRESENTATIVE us Kip Govindan MD LAB BLOOD ORDERABLES Final Result SEJAL [address] [facility] Department [place] [address] * (ABNORMAL) CBC with auto differential (02/25/2024 2:21 PM TELEPHONE SERVICES SALES REPRESENTATIVE) [facility] Signature WBC 7.5 3.8 - 9.9 K/cumm Comment:Testing performed by : [address] [address] Hgb 13.9 13.0 - 17.5 g/dL SEJAL Comment:Testing performed by : [address] [address] Hct 41.3 38.9 - 50.3 % SEJAL Comment:Testing performed by : [address] [address] Plt 144(L) 150 - 400 K/cumm SEJAL Comment:Testing performed by : [address] [address] MPV 11.5 9.1 - 12.3 fL SEJAL Comment:Testing performed by : [address] [address] RBC 4.31 4.30 - 5.80 M/cumm SEJAL Comment:Testing performed by : [address] [address] MCV 95.8 81.3 - 96.4 fL SEJAL Comment:Testing performed by : [address] [address] MCH 32.3 27.1 - 33.3 pg SEJAL Comment:Testing performed by : [address] [address] MCHC 33.7 32.3 - 35.7 g/dL SEJAL PAEZ Comment:Testing performed by : [address] [address] RDW CV 15.1(H) 11.1 - 14.9 % SEJAL Comment:Testing performed by : [address], [address] RDW SD 54.1(H) 35.7 - 48.1 fL SEJAL Comment:Testing performed by : [address] [address] NRBC abs 0.00 0.00 - 0.01 K/cumm SEJAL PAEZ Comment:Testing performed by : [address] [address] Blood 02/25/2024 2:21 PM TELEPHONE SERVICES SALES REPRESENTATIVE 02/25/2024 2:35 PM TELEPHONE SERVICES SALES REPRESENTATIVE us Kip Del Rio MD LAB BLOOD ORDERABLES Final Result [facility] [address] [facility] Department [place] [address] * (ABNORMAL) Comprehensive metabolic panel (02/25/2024 2:21 PM TELEPHONE SERVICES SALES REPRESENTATIVE) Sodium 138 135 - 145 mmol/L Comment:Testing performed by : [address] [address] Potassium, pl 4.1 3.3 - 4.9 mmol/L SEJAL Comment:Testing performed by : [address] [address] Chloride 101 97 - 110 mmol/L SEJAL Comment:Testing performed by : [address] [address] CO2 28 22 - 32 mmol/L SEJAL Comment:Testing performed by : [address] [address] Anion gap 9 2 - 15 mmol/L SEJAL Comment:Testing performed by : [address] [address] BUN 14 6 - 25 mg/dL SEJAL Comment:Testing performed by : [address] [address] Creatinine 0.70(L) 0.80 - 1.30 mg/dL SEJAL Comment:Testing performed by : [address] [address] Glucose 98 70 - 199 mg/dL SEJAL [...] was last revised 2022. Testing performed by: [address] [address] Calcium 9.9 8.5 - 10.3 mg/dL SEJAL Comment:Testing performed by : [address] [address] Bilirubin, total 0.3 0.1 - 1.2 mg/dL SEJAL Comment:Testing performed by : [address] [address] Protein, pl 7.6 6.5 - 8.5 g/dL SEJAL Comment:Testing performed by : [address] [address] Albumin 4.4 3.5 - 5.0 g/dL SEJAL Comment:Testing performed by : [address] [address] Alk phos 94 40 - 130 Units/L SEJAL Comment:Testing performed by : [address] [address] ALT 18 7 - 55 Units/L SEJAL Comment:Testing performed by : [address] [address] AST 21 10 - 50 Units/L SEJAL Comment:Testing performed by : [address] [address] Blood 02/25/2024 2:21 PM TELEPHONE SERVICES SALES REPRESENTATIVE 02/25/2024 2:35 PM TELEPHONE SERVICES SALES REPRESENTATIVE Kip Del Rio MD LAB BLOOD ORDERABLES Final Result [facility] [address] [facility] Department [place] [address] * eGFR (02/18/2024 9:52 AM TELEPHONE SERVICES SALES REPRESENTATIVE) eGFR >90 >=60 mL/min/1. 73 m2 Comment: [...] last reviewed 2021. Blood 02/18/2024 9:52 AM TELEPHONE SERVICES SALES REPRESENTATIVE 02/18/2024 9:57 AM TELEPHONE SERVICES SALES REPRESENTATIVE us Kip Del Rio MD LAB BLOOD ORDERABLES Final Result SE[facility] [place] [address] * (ABNORMAL) Differential, auto (02/18/2024 9:52 AM TELEPHONE SERVICES SALES REPRESENTATIVE) Neutrophil abs 9.7(H) 1.5 - 6.5 K/cumm Comment:Testing performed by : [facility], [address] [place] [phone] Lymphocyte abs 0.6(L) 0.8 - 3.3 K/cumm [facility] Comment:Testing performed by : [facility], [address] [place] [phone] Monocyte abs 1.2(H) 0.2 - 0.8 K/cumm [facility] Comment:Testing performed by : [facility], [address] [place] [address] Eosinophil abs 0.3 0.0 - 0.5 K/cumm [facility] Comment:Testing performed by : [facility], [address] [place], [place] [id number] Basophil abs 0.1 0.0 - 0.1 K/cumm [facility] Comment:Testing performed by : [facility], [address] [place] [address] Neutrophil pct 81.9 % [facility] Comment: Interpretive Data Percent cell count reference ranges are not reported, since discordance with absolute values may lead to misinterpretation of CBC data. Current Interpretive Data was last revised on 2017. Testing performed by: [facility], [address] [place] [phone] Lymphocyte pct 5.0 % [facility] Comment: Interpretive Data Percent cell count reference ranges are not reported, since discordance with absolute values may lead to misinterpretation of CBC data. Current Interpretive Data was last revised on 2017. Testing performed by: [facility], [address] [place] [phone] Monocyte pct 10.3 % [facility] Comment: Interpretive Data Percent cell count reference ranges are not reported, since discordance with absolute values may lead to misinterpretation of CBC data. Current Interpretive Data was last revised on 2017. Testing performed by: [facility], [address] [place] [phone] Eosinophil pct 2.3 % [facility] Comment: Interpretive Data Percent cell count reference ranges are not reported, since discordance with absolute values may lead to misinterpretation of CBC data. Current Interpretive Data was last revised on 2017. Testing performed by: [facility], [address] [place] [phone] Basophil pct 0.5 % SEJAL [facility] Comment: Interpretive Data Percent cell count reference ranges are not reported, since discordance with absolute values may lead to misinterpretation of CBC data. Current Interpretive Data was last revised on 2017. Testing performed by: [facility], [address] [place] [address] Blood 02/18/2024 9:52 AM TELEPHONE SERVICES SALES REPRESENTATIVE 02/18/2024 9:54 AM TELEPHONE SERVICES SALES REPRESENTATIVE us Kip Del Rio MD LAB BLOOD ORDERABLES Final Result [facility] Department [place] [address] * (ABNORMAL) CBC with auto differential (02/18/2024 9:52 AM TELEPHONE SERVICES SALES REPRESENTATIVE) WBC 11.8(H) 3.8 - 9.9 K/cumm Comment:Testing performed by : [facility], [address] [place] [address] Hgb 14.1 13.0 - 17.5 g/dL SE[facility]AL [facility] Comment:Testing performed by : [facility], [address] [place] [address] Hct 42.4 38.9 - 50.3 % SE[facility]AL [facility] Comment:Testing performed by : [facility], [address] [place] [address] Plt 213 150 - 400 K/cumm SEJAL HEARN Comment:Testing performed by : [facility], [address] [place] [address] MPV 9.6 6.8 - 10.4 fL SEJAL HEARN Comment:Testing performed by : [facility], [address] [place] [address] RBC 4.39 4.30 - 5.80 M/cumm SEJAL [facility] Comment:Testing performed by : [facility], [address] [place], [place] [id number] MCV 96.4 81.3 - 96.4 fL SEJAL HEARN Comment:Testing performed by : [facility], [address] [place], [place] [id number] MCH 32.0 27.1 - 33.3 pg SEJAL HEARN Comment:Testing performed by : [facility], [address] [place] [address] MCHC 33.2 32.3 - 35.7 g/dL SEJAL HEARN Comment:Testing performed by : [facility], [address] [place] [address] RDW CV 16.8(H) 11.1 - 14.9 % SEJAL [facility] Comment:Testing performed by : [facility], [address] [place] [address] NRBC abs 0.00 0.00 - 0.01 K/cumm SEJAL [facility] Comment:Testing performed by : [facility], [address] [place] [address] Blood 02/18/2024 9:52 AM TELEPHONE SERVICES SALES REPRESENTATIVE 02/18/2024 9:54 AM TELEPHONE SERVICES SALES REPRESENTATIVE us Kip Del Rio MD LAB BLOOD ORDERABLES Final Result [facility] Department [place] [address] * Comprehensive metabolic panel (02/18/2024 9:52 AM TELEPHONE SERVICES SALES REPRESENTATIVE) Sodium 144 135 - 145 mmol/L Potassium, [...] [facility] Blood 02/18/2024 9:52 AM TELEPHONE SERVICES SALES REPRESENTATIVE 02/18/2024 9:57 AM TELEPHONE SERVICES SALES REPRESENTATIVE us Kip Del Rio MD LAB BLOOD ORDERABLES Final Result [facility] Department [place] [address] * CT Chest Abdomen Pelvis W Contrast (02/16/2024 6:28 PM TELEPHONE SERVICES SALES REPRESENTATIVE) Anatomical Region Laterality Modality Body N/A Computed Tomogra phy 02/17/2024 9:44 AM TELEPHONE SERVICES SALES REPRESENTATIVE Impressions 02/17/2024 12:53 PM TELEPHONE SERVICES SALES REPRESENTATIVE 1. ??No significant change in posttreatment changes [...] Vikki Way M.D. Narrative 02/17/2024 12:53 PM TELEPHONE SERVICES SALES REPRESENTATIVE EXAMINATION: ??Computed tomography of the chest, abdomen [...] Brain W WO Contrast (02/16/2024 5:42 PM TELEPHONE SERVICES SALES REPRESENTATIVE) Anatomical Region Laterality Modality Head and Neck N/A Magnetic Resonan ce 02/17/2024 8:38 AM TELEPHONE SERVICES SALES REPRESENTATIVE Impressions 02/17/2024 4:37 PM TELEPHONE SERVICES SALES REPRESENTATIVE No evidence of intracranial metastatic disease. Dictated by: Shannon Turner MD The radiology attending physician has personally reviewed this study, and had reviewed and/or edited this written report and agrees with it. Electronically signed by: Gabbi Zimmer MD Narrative 02/17/2024 4:37 PM TELEPHONE SERVICES SALES REPRESENTATIVE EXAMINATION: Magnetic resonance imaging (MRI) of the [...] * (ABNORMAL) Differential, auto (01/21/2024 8:59 AM TELEPHONE SERVICES SALES REPRESENTATIVE) Neutrophil abs 6.3 1.5 - 6.5 K/cumm Comment:Testing performed by : [facility], [address] [place] [phone] Lymphocyte abs 1.0 0.8 - 3.3 K/cumm CERNER BJ Comment:Testing performed by : [facility], [address] [place] [phone] Monocyte abs 1.2(H) 0.2 - 0.8 K/cumm CERNER BJ Comment:Testing performed by : [facility], [address] [place] [phone] Eosinophil abs 0.1 0.0 - 0.5 K/cumm [facility] Comment:Testing performed by : [facility], [address] [place] [phone] Basophil abs 0.1 0.0 - 0.1 K/cumm [facility] Comment:Testing performed by : [facility], [address] [place] [phone] Neutrophil pct 72.4 % [facility] Comment: Interpretive Data Percent cell count reference ranges are not reported, since discordance with absolute values may lead to misinterpretation of CBC data. Current Interpretive Data was last revised on 2017. Testing performed by: [facility], [address] [place], [place] [id number] Lymphocyte pct 11.6 % [facility] Comment: Interpretive Data Percent cell count reference ranges are not reported, since discordance with absolute values may lead to misinterpretation of CBC data. Current Interpretive Data was last revised on 2017. Testing performed by: [facility], [address] [place], [place] [id number] Monocyte pct 13.6 % [facility] Comment: Interpretive Data Percent cell count reference ranges are not reported, since discordance with absolute values may lead to misinterpretation of CBC data. Current Interpretive Data was last revised on 2017. Testing performed by: [facility], [address] [place] [phone] Eosinophil pct 1.7 % [facility] Comment: Interpretive Data Percent cell count reference ranges are not reported, since discordance with absolute values may lead to misinterpretation of CBC data. Current Interpretive Data was last revised on 2017. Testing performed by: [facility], [address] [place] [phone] Basophil pct 0.7 % [facility] Comment: Interpretive Data Percent cell count reference ranges are not reported, since discordance with absolute values may lead to misinterpretation of CBC data. Current Interpretive Data was last revised on 2017. Testing performed by: [facility], [address] [place] [phone] Blood 01/21/2024 8:59 AM TELEPHONE SERVICES SALES REPRESENTATIVE 01/21/2024 9:01 AM TELEPHONE SERVICES SALES REPRESENTATIVE us Kip Del Rio MD LAB BLOOD ORDERABLES Final Result SEJAL HEARN [facility] Department of Laboratories [place] [id number] * (ABNORMAL) CBC with auto differential (01/21/2024 8:59 AM TELEPHONE SERVICES SALES REPRESENTATIVE) WBC 8.6 3.8 - 9.9 K/cumm Comment:Testing performed by : [facility], [address] [place] [address] Hgb 14.7 13.0 - 17.5 g/dL SEJAL HEARN Comment:Testing performed by : [facility], [address] [place] [address] Hct 43.9 38.9 - 50.3 % SEJAL HEARN Comment:Testing performed by : [facility], [address] [place] [address] Plt 210 150 - 400 K/cumm SEJAL HEARN Comment:Testing performed by : [facility], [address] [place] [address] MPV 9.7 6.8 - 10.4 fL SEJAL HEARN Comment:Testing performed by : [facility], [address] [place] [address] RBC 4.66 4.30 - 5.80 M/cumm SEJAL HEARN Comment:Testing performed by : [facility], [address] [place] [address] MCV 94.3 81.3 - 96.4 fL SEJAL HEARN Comment:Testing performed by : [facility], [address] [place] [address] MCH 31.6 27.1 - 33.3 pg CERRAFAELA HEARN Comment:Testing performed by : [facility], [address] [place] [address] MCHC 33.6 32.3 - 35.7 g/dL SEJAL HEARN Comment:Testing performed by : [facility], [address] [place] [phone] RDW CV 17.7(H) 11.1 - 14.9 % SEJAL HEARN Comment:Testing performed by : [facility], [address] [place] [phone] NRBC abs 0.00 0.00 - 0.01 K/cumm SEJAL HEARN Comment:Testing performed by : [facility], [address] [place] [phone] Blood 01/21/2024 8:59 AM TELEPHONE SERVICES SALES REPRESENTATIVE 01/21/2024 9:01 AM TELEPHONE SERVICES SALES REPRESENTATIVE Kip Del Rio MD LAB BLOOD ORDERABLES Final Result Performing Organization Address City/State/[facility] Co de Phone Number [facility] Department [place] [address] * eGFR (01/21/2024 8:57 AM TELEPHONE SERVICES SALES REPRESENTATIVE) eGFR >90 >=60 mL/min/1. 73 m2 Comment: [...] last reviewed 2021. Blood 01/21/2024 8:57 AM TELEPHONE SERVICES SALES REPRESENTATIVE 01/21/2024 9:05 AM TELEPHONE SERVICES SALES REPRESENTATIVE us Kip Del Rio MD LAB BLOOD ORDERABLES Final Result [facility] Department [place] [address] * (ABNORMAL) Comprehensive metabolic panel (01/21/2024 8:57 AM TELEPHONE SERVICES SALES REPRESENTATIVE) Sodium 140 135 - 145 mmol/L Potassium, [...] [facility] Blood 01/21/2024 8:57 AM TELEPHONE SERVICES SALES REPRESENTATIVE 01/21/2024 9:05 AM TELEPHONE SERVICES SALES REPRESENTATIVE us Kip Del Rio MD LAB BLOOD ORDERABLES Final Result [facility] Department [place] [address] * eGFR (12/24/2023 12:27 PM CDT) eGFR [...] Final Result [facility] Department [place] [address] * Comprehensive metabolic panel (12/24/2023 12:27 PM CDT) Sodium 140 135 - 145 mmol/L Potassium, pl 4.2 3.3 - 4.9 mmol/L [facility] Chloride 102 97 - 110 mmol/L [facility] CO2 32 22 - 32 mmol/L [facility] Anion gap 6 2 - [...] MD LAB BLOOD ORDERABLES Final Result SEJAL [facility] Department [place] [address] * (ABNORMAL) Differential, auto (12/24/2023 12:23 PM CDT) Neutrophil abs 5.0 1.5 - 6.5 K/cumm Comment:Testing performed by : [facility], [address] [place] [phone] Lymphocyte abs 1.4 0.8 - 3.3 K/cumm CERNER DHIRAJ Comment:Testing performed by : [facility], [address] [place] [phone] Monocyte abs 1.1(H) 0.2 - 0.8 K/cumm CERNER BJ Comment:Testing performed by : [facility], [address] [place] [phone] Eosinophil abs 0.2 0.0 - 0.5 K/cumm CERNER BJ Comment:Testing performed by : [facility], [address] [place] [phone] Basophil abs 0.1 0.0 - 0.1 K/cumm CERNER BJ Comment:Testing performed by : [facility], [address] [place] [phone] Neutrophil pct 63.8 % CERNER [facility]J Comment: Interpretive Data Percent cell count reference ranges are not reported, since discordance with absolute values may lead to misinterpretation of CBC data. Current Interpretive Data was last revised on 2017. Testing performed by: [facility], [address] [place] [phone] Lymphocyte pct 18.3 % CERNER BJ Comment: Interpretive Data Percent cell count reference ranges are not reported, since discordance with absolute values may lead to misinterpretation of CBC data. Current Interpretive Data was last revised on 2017. Testing performed by: [facility], [address] [place] [phone] Monocyte pct 14.3 % SEJAL HEARN Comment: Interpretive Data Percent cell count reference ranges are not reported, since discordance with absolute values may lead to misinterpretation of CBC data. Current Interpretive Data was last revised on 2017. Testing performed by: [facility], [address] [place] [phone] Eosinophil pct 2.7 % SEJAL HEARN Comment: Interpretive Data Percent cell count reference ranges are not reported, since discordance with absolute values may lead to misinterpretation of CBC data. Current Interpretive Data was last revised on 2017. Testing performed by: [facility], [address] [place] [phone] Basophil pct 0.9 % SEJAL HEARN Comment: Interpretive Data Percent cell count reference ranges are not reported, since discordance with absolute values may lead to misinterpretation of CBC data. Current Interpretive Data was last revised on 2017. Testing performed by: [facility], [address] [place] [address] Blood 12/24/2023 12:2 3 PM CDT 12/24/2023 12:31 PM CDT us Kip Del Rio MD LAB BLOOD ORDERABLES Final Result [facility] Department [place] [address] * (ABNORMAL) CBC with auto differential (12/24/2023 12:23 PM CDT) WBC 7.8 3.8 - 9.9 K/cumm Comment:Testing performed by : [facility], [address] [place] [phone] Hgb 14.0 13.0 - 17.5 g/dL SEJAL HEARN Comment:Testing performed by : [facility], [address] [place] [address] Hct 42.5 38.9 - 50.3 % SEJAL HEARN Comment:Testing performed by : [facility], [address] [place] [address] Plt 198 150 - 400 K/cumm SEJAL HEARN Comment:Testing performed by : [facility], [address] [place] [address] MPV 9.7 6.8 - 10.4 fL SEJAL HEARN Comment:Testing performed by : [facility], [address] [place] [address] RBC 4.57 4.30 - 5.80 M/cumm CERRAFAELA BJ Comment:Testing performed by : [facility], [address] [place] [address] MCV 93.1 81.3 - 96.4 fL SEJAL HEARN Comment:Testing performed by : [facility], [address] [place] [address] MCH 30.7 27.1 - 33.3 pg SEJAL HEARN Comment:Testing performed by : [facility], [address] [place] [address] MCHC 33.0 32.3 - 35.7 g/dL CERRAFAELA HEARN Comment:Testing performed by : [facility], [address] [place] [address] RDW CV 17.3(H) 11.1 - 14.9 % SEJAL HEARN Comment:Testing performed by : [facility], [address] [place] [address] NRBC abs 0.00 0.00 - 0.01 K/cumm SEJAL HEARN Comment:Testing performed by : [facility], [address] [place] [address] Blood 12/24/2023 12:2 3 PM CDT 12/24/2023 12:31 PM CDT us Kip Del Rio MD LAB BLOOD ORDERABLES Final Result SEJAL HEARN [facility] Department of Laboratories [place] [id number] * CT Chest Abdomen Pelvis W Contrast [...] Final Result [facility] Department [place] [address] * PSA, total and free (05/10/2019 12:35 PM TELEPHONE SERVICES SALES REPRESENTATIVE) Free PSA Screen 0.4 ng/mL [facility] PROSTATE SPECIFIC AG, TOTAL 1.9 0.0 - 4.0 ng/mL [facility] Comment: INTERPRETIVE INFORMATION: Prostate Specific Antigen [...] PROSTATE SPECIFIC AG, % FREE 21 % [facility] Comment: INTERPRETIVE INFORMATION: Prostate Specific Antigen, Free Percentage [facility] uses the Ebon[employer] Free PSA electrochemiluminescent immunoassay [...] prostate cancer in individual patients. Performed by [facility], [address] [place] [address] [email or web address], Carlyle Stewart MD, Lab. Director Blood specimen (specimen) 05/10/2019 12:35 PM TELEPHONE SERVICES SALES REPRESENTATIVE 05/10/2019 1:05 PM TELEPHONE SERVICES SALES REPRESENTATIVE Narrative Resulting Agency Comment CLI us Alexis Lopez MD LAB BLOOD ORDERABLES Marianne conde Result [facility] [address] [place] [address], [facility] [phone] from Last 3 Months or Most Recently Relevant to Health Maintenance Insurance [facility] CHOICE PLUS [employer] CLAIMS [employer] CLAIMS Advance Directives For more information, please contact: [phone] * Full Code (Latest Code Status on File) Date Activated Date Inactivated Comments 10/16/2023 7:50 AM 10/17/2023 4:55 AM * Full Code Date Activated Date Inactivated Comments 05/26/2019 9:27 PM 05/30/2019 9:19 PM Care Teams Batch Analyst Relationship Specialty Start Date End Date Clara Stanley PA [address] [place] [address] PCP - General Nurse Practitioner 04/05/19 Jasper Canchola MD [address] [place] [address] Surgeon Thoracic Surgery 05/11/19 Alexis Lopez MD [address] [address] Track Grinder Operator Pulmonary Disease 05/11/19 Kip Del Rio MD [address] [place] [address] Medical Oncologist/Correctional Nurse Hematology and Oncology 05/11/19 Jacob Flynn MD [address] [place] [address] Radiation Oncologist Radiation Oncology 05/25/19 Renetta Ballesteros NP [address] [place] [address] Nurse Practitioner Radiation Oncology 06/11/22
--- OUTSIDE RECORDS SUMMARY | 2024-03-02 04:18 | XMS_ITS | Encounter Summary ---
Author Organization [facility] Address [address] [place] [address] Phone Care Team Providers Care Care Director Name Role Phone Clara Stanley Primary Care Provider + Jasper Canchola MD Unavailable Alexis Lopez MD Unavailable [phone] Kip Del Rio MD Unavailable [phone] Jacob Flynn MD Unavailable Renetta Ballesteros NP Unavailable Encounter Details Date Type Department Care Team (Late st Contact Info) Description 02/25/2024 Telephone [facility] Oncology [facility] Floor [address] [place] [address] Imelda De Leon, RN Social [...] on file Legal Sex Male 1:17 AM [employer] Gender Identity Not on file Sexual Orientation Straight 09/22/2019 8: 21 PM CDT 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 MARKETING documented in this encounter Plan of Treatment Not on file documented as of this encounter Visit Diagnoses Not on filedocumented in this encounter Care Teams Care Director Relationship Specialty Start Date End Date Clara Stanley PA [address] [place] [id number] PCP - General Nurse Practitioner 04/05/19 Jasper Canchola MD [address] [place] [address] Surgeon Thoracic Surgery 05/11/19 Alexis [place] MD [address] [address] Line Installer Repairer Pulmonary Disease 05/11/19 Kip Del Rio MD [address] [facility] [address] [place], [place] [id number] Medical Oncologist/Leasing Consultant Hematology and Oncology 05/11/19 Jacob Flynn MD [address] [place] [address] Radiation Oncologist Radiation Oncology 05/25/19 Renetta Ballesteros NP [address] [facility] [address] [place] [address] Nurse Practitioner Radiation Oncology 06/11/22 documented as of this encounter
--- OUTSIDE RECORDS SUMMARY | 2024-03-02 04:18 | XMS_ITS | Referral Summary ---
Author Organization [facility] Office Center Address [address] [place] [address] Care Team Providers Care Automatic Print Developer Name Role Phone Clara Stanley Primary Care Provider + Jasper Canchola MD Unavailable Alexis Lopez MD Unavailable Kip Del Rio MD Unavailable Jacob Flynn MD Unavailable [phone] Renetta Ballesteros NP Unavailable [phone] Encounters Date Type Department Care Team Description 02/27/[address] [phone] Beverly Rice NP Medical Question/Miscellaneous 02/25/2024 Telephone [facility] Oncology [facility] 5 [place] [address] Imelda De Leon, KAMILA 02/25/2024 2:15 PM CREDIT REPRESENTATIVE Lab 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) 02/18/2024 Orders Only [facility] Oncology [address] [place] [phone] Princess Belindacurry Vasquez [facility] 02/18/2024 9:45 AM CREDIT REPRESENTATIVE Lab [facility] - Lab Collection [address] [place] [address] 5 [place] [address] Neuroendocrine carcinoma of lung (HCC); 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) 02/18/2024 9:30 AM CREDIT REPRESENTATIVE Lab [facility] Oncology Lab [address] [place] [address] 5 [place] [address] Neuroendocrine carcinoma of lung (HCC); 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) 02/18/2024 10:40 AM CREDIT REPRESENTATIVE Office Visit [facility] Oncology [address] [place] [phone] Kip Del Rio MD 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); Neuroendocrine carcinoma of lung (HCC) 02/16/2024 4:50 PM CREDIT REPRESENTATIVE - 02/16/2024 11:59 PM CREDIT REPRESENTATIVE Hospital Encounter [facility] [address] [place] [address] 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); Neuroendocrine carcinoma of lung (HCC) Discharge Disposition: Discharge to home or self care 02/16/2024 4:50 PM CREDIT REPRESENTATIVE - 02/16/2024 11:59 PM CREDIT REPRESENTATIVE Hospital Encounter [facility] [address] [place] [address] 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); Neuroendocrine carcinoma of lung (HCC) Discharge Disposition: Discharge to home or self care 01/21/2024 Orders Only [facility] Oncology [address] [place] [phone] Kip Del Rio MD 01/21/2024 9:00 AM CREDIT REPRESENTATIVE Lab [facility] - Lab Collection [address] [place] [address] [place] [address] Neuroendocrine carcinoma of lung (HCC); 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) 01/21/2024 9:40 AM CREDIT REPRESENTATIVE Office Visit [facility] Oncology [address] [place] [phone] Kip Del Rio MD Neuroendocrine carcinoma of lung (HCC) (Primary Dx); 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) 01/21/2024 8:45 AM CREDIT REPRESENTATIVE Lab [facility] Oncology Lab [address] [place] [phone] Neuroendocrine carcinoma of lung (HCC); 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) 01/18/2024 Orders Only [facility] Oncology [address] [place] [phone] Cheri Leonard DNP 01/18/2024 Orders Only [facility] Oncology [address] [place] [phone] Kip Del Rio MD Neuroendocrine carcinoma of lung (HCC) (Primary Dx); 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) 12/24/2023 Orders Only [facility] Oncology [address] [place] [phone] Kip Del Rio MD 12/24/2023 12:30 PM CDT Lab [facility] - Lab Collection [address] [place] [address] Neuroendocrine carcinoma of lung (HCC); 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) 12/24/2023 1:20 PM CDT Office Visit [facility] Oncology [address] [place] [phone] Kip Del Rio MD 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); Neuroendocrine carcinoma of lung (HCC) 12/24/2023 12:15 PM CDT Lab [facility] Oncology Lab [address] [place] [phone] 12/22/2023 11:05 AM CDT - 12/22/2023 11:59 PM CDT Hospital Encounter [facility] - [place] [address] [place] [address] Floor 8 [place] [address] 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); Neuroendocrine carcinoma of lung (HCC) Discharge Disposition: Discharge to home or self care 12/04/2023 Telephone [facility] Oncology [facility] 7th [place] [address] [place] [phone] Imelda De Leon RN 12/03/2023 Orders Only [facility] Oncology [address] [place] [address] [place] [address] [place] [phone] Kip Del Rio MD 12/03/2023 Orders Only [facility] Oncology [address] [place] [address] [place] [address] [place] [address] Naomi Bains [facility] from Last 3 Months Allergies No known [...] pressure. Assessment & Plan (02/26/2022 2:50 PM CREDIT REPRESENTATIVE): Patient will continue with positional therapy. I did encourage the patient to resume CPAP therapy at an auto titrating range of 5-20 cm water pressure. Assessment & Plan (02/01/2021 11:11 AM CREDIT REPRESENTATIVE): The patient has an auto titrating CPAP unit with a range of 5-20 cm water pressure. He is going to restart CPAP therapy. I will send an order to [facility] for new supplies. Assessment & Plan (10/05/2020 11:01 AM CDT): I did encourage the patient to use the auto titrating CPAP unit with a range of 5-20 cm water pressure. His DME is [employer]. Assessment & Plan (04/06/2020 9:51 AM CREDIT REPRESENTATIVE): The patient was encouraged to resume [...] need for supplies. The DME company is [employer]. The patient is benefitting from CPAP therapy. [...] Amador. Assessment & Plan (02/26/2022 2:51 PM CREDIT REPRESENTATIVE): The patient was given a trial [...] PFT. Assessment & Plan (02/01/2021 11:10 AM CREDIT REPRESENTATIVE): I did recommend that the patient try to use the Symbicort b.i.d. for period of time to see if this will resolve the coughing. Continues to use the albuterol on a p.r.n. basis. He continues on Flonase and Zyrtec daily. He does have some reflux symptoms and I did recommend that he try an [id number] proton pump inhibitor. Assessment & Plan (10/05/2020 11:01 AM CDT): The patient is breathing has been under good control with albuterol MDI, Symbicort and Flonase. Assessment & Plan (04/06/2020 9:51 AM CREDIT REPRESENTATIVE): The patient will continue with Symbicort [...] (06/04/2021): Added automatically from request for surgery [id number] Added automatically from request for surgery [id number] Last Assessment & Plan: The patient's cough has essentially resolved with treatment of his cough variant of asthma with Symbicort, gastroesophageal reflux with Pepcid and Flonase for postnasal drip. I did tell him he could try stopping the Flonase and/or the Pepcid to see if the Symbicort alone would control the cough. Added automatically from request for surgery [id number] Last Assessment & Plan: The patient's cough [...] PM CDT): The patient did see the ceramic engineering professor but he did not reveal a reason [...] dry cough now. He did see the ceramic engineering professor and allergy shots versus Dupixent is being considered. He will continue on Protonix 40 mg daily. I will consider bronchoscopy if the allergy shots/Dupixent do not control the cough. Assessment & Plan (02/26/2022 2:52 PM CREDIT REPRESENTATIVE): Patient will continue treating the asthma [...] with Flonase and Hui for now. The ceramic engineering professor skin test is pending. I will check a methacholine challenge since he recently had normal PFTs. Allergies 07/11/2019 Assessment & Plan (08/08/2022 9:59 AM CDT): The patient has not heard from the ceramic engineering professor. I did send a message to our office staff to follow-up. 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 on file Not on file Last Filed Vital Signs Vital Sign Reading Time Taken Comments Blood Pressure 132/77 02/18/2024 9:58 AM CREDIT REPRESENTATIVE Pulse 101 02/18/2024 9:58 AM CREDIT REPRESENTATIVE Temperature 36.4 ??C (97.6 ??F) 02/18/2024 9:58 AM CS T Respiratory Rate 19 02/18/2024 9:58 AM CREDIT REPRESENTATIVE Oxygen Saturation 99% 02/18/2024 9:58 AM CREDIT REPRESENTATIVE Inhaled Oxygen Concentration - - Weight 153 kg (337 lb 6.4 oz) 02/18/2024 9:58 AM CREDIT REPRESENTATIVE Height 190.5 cm (6' 3 ) 02/16/2024 4:53 PM CREDIT REPRESENTATIVE Body Mass Index 42.17 02/16/2024 4:53 PM CREDIT REPRESENTATIVE Plan of Treatment Not on file Procedures Procedure Name Priority Date/Time Associated Diagnosis Comments EGFR STAT 02/25/2024 2:21 PM CREDIT REPRESENTATIVE Neuroendocrine carcinoma of lung (HCC) DIFFERENTIAL AUTO STAT 02/25/2024 2:2 1 PM CREDIT REPRESENTATIVE Neuroendocrine carcinoma of lung (HCC) COMPREHENSIVE METABOLIC PANEL STAT 02/25/2024 2:21 PM CREDIT REPRESENTATIVE Neuroendocrine carcinoma of lung (HCC) CBC WITH AUTO DIFFERENTIAL STAT 02/25/2024 2:21 PM CREDIT REPRESENTATIVE Neuroendocrine carcinoma of lung (HCC) EGFR Routine 02/18/2024 9:52 AM CREDIT REPRESENTATIVE 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) DIFFERENTIAL AUTO Routine 02/18/2024 9:5 2 AM CREDIT REPRESENTATIVE 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) CBC WITH AUTO DIFFERENTIAL Routine 02/18/2024 9:52 AM CREDIT REPRESENTATIVE 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) COMPREHENSIVE METABOLIC PANEL Routine 02/18/2024 9:52 AM CREDIT REPRESENTATIVE 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) CT CHEST ABDOMEN PELVIS W CONTRAST Schedule Routine, Read Routine (OP Routine) 02/16/2024 6:28 PM CREDIT REPRESENTATIVE 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) MRI BRAIN W WO CONTRAST Schedule Routine, Read Routine (OP Routine) 02/16/2024 5:42 PM CREDIT REPRESENTATIVE 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) DIFFERENTIAL AUTO Routine 01/21/2024 8:5 9 AM CREDIT REPRESENTATIVE 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) CBC WITH AUTO DIFFERENTIAL Routine 01/21/2024 8:59 AM CREDIT REPRESENTATIVE 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 73 m2 [...] was last reviewed 2021. Testing performed by: [address] [address] Blood 02/25/2024 2:21 PM CREDIT REPRESENTATIVE 02/25/2024 2:35 PM CREDIT REPRESENTATIVE us Kip Del Rio MD LAB BLOOD ORDERABLES Final Result [facility] [address] [facility] Department [place] [address] * (ABNORMAL) Differential, auto (02/25/2024 2:21 PM CREDIT REPRESENTATIVE) Neutrophil abs 5.1 1.5 - 6.5 K/cumm Comment:Testing performed by : [address] [address] Imm gran abs 0.0 0.0 - 0.1 K/cumm SEJAL Comment:Testing performed by : [address] [address] Lymphocyte abs 1.1 0.8 - 3.3 K/cumm SEJAL Comment:Testing performed by : [address] [address] Monocyte abs 1.0(H) 0.2 - 0.8 K/cumm SEJAL Comment:Testing performed by : [address] [address] Eosinophil abs 0.3 0.0 - 0.5 K/cumm [facility] Comment:Testing performed by : [address] [address] Basophil abs 0.0 0.0 - 0.1 K/cumm [facility] Comment:Testing performed by : [address] [address] Neutrophil pct 67.4 % [facility] Comment: Interpretive Data Percent cell count reference ranges are not reported, since discordance with absolute values may lead to misinterpretation of CBC data. Current Interpretive Data was last revised on 2017. Testing performed by: [address] [address] Imm gran pct 0.4 % [facility] Comment: Interpretive Data Percent cell count reference ranges are not reported, since discordance with absolute values may lead to misinterpretation of CBC data. Current Interpretive Data was last revised on 2017. Testing performed by: [address] [address] Lymphocyte pct 15.0 % [facility] Comment: Interpretive Data Percent cell count reference ranges are not reported, since discordance with absolute values may lead to misinterpretation of CBC data. Current Interpretive Data was last revised on 2017. Testing performed by: [address] [address] Monocyte pct 13.4 % [facility] Comment: Interpretive Data Percent cell count reference ranges are not reported, since discordance with absolute values may lead to misinterpretation of CBC data. Current Interpretive Data was last revised on 2017. Testing performed by: [address] [address] Eosinophil pct 3.5 % [facility] Comment: Interpretive Data Percent cell count reference ranges are not reported, since discordance with absolute values may lead to misinterpretation of CBC data. Current Interpretive Data was last revised on 2017. Testing performed by: [address] [address] Basophil pct 0.3 % [facility] Comment: Interpretive Data Percent cell count reference ranges are not reported, since discordance with absolute values may lead to misinterpretation of CBC data. Current Interpretive Data was last revised on 2017. Testing performed by: [address] [address] Blood 02/25/2024 2:21 PM CREDIT REPRESENTATIVE 02/25/2024 2:35 PM CREDIT REPRESENTATIVE us Kip Del Rio MD LAB BLOOD ORDERABLES Final Result [facility] [address] [facility] Department [place] [address] * (ABNORMAL) CBC with auto differential (02/25/2024 2:21 PM CREDIT REPRESENTATIVE) WBC 7.5 3.8 - 9.9 K/cumm Comment:Testing performed by : [address] [address] Hgb 13.9 13.0 - 17.5 g/dL SEJAL Comment:Testing performed by : [address] [address] Hct 41.3 38.9 - 50.3 % SEJAL Comment:Testing performed by : [address] [address] Plt 144(L) 150 - 400 K/cumm SEAJL Comment:Testing performed by : [address] [address] MPV 11.5 9.1 - 12.3 fL SEJAL Comment:Testing performed by : [address] [address] RBC 4.31 4.30 - 5.80 M/cumm SEJAL Comment:Testing performed by : [address] [address] MCV 95.8 81.3 - 96.4 fL SEJAL Comment:Testing performed by : [address] [address] MCH 32.3 27.1 - 33.3 pg SEJAL Comment:Testing performed by : [address] [address] MCHC 33.7 32.3 - 35.7 g/dL SEJAL PAEZ Comment:Testing performed by : [address] [address] RDW CV 15.1(H) 11.1 - 14.9 % SEJAL PAEZ Comment:Testing performed by : [address] [address] RDW SD 54.1(H) 35.7 - 48.1 fL SEJAL PAEZ Comment:Testing performed by : [address] [address] NRBC abs 0.00 0.00 - 0.01 K/cumm SEJAL PAEZ Comment:Testing performed by : [address] [address] Blood 02/25/2024 2:21 PM CREDIT REPRESENTATIVE 02/25/2024 2:35 PM CREDIT REPRESENTATIVE Kip Del Rio MD LAB BLOOD ORDERABLES Final Result [facility] [address] [facility] Department [place] [address] * (ABNORMAL) Comprehensive metabolic panel (02/25/2024 2:21 PM CREDIT REPRESENTATIVE) Sodium 138 135 - 145 mmol/L Comment:Testing performed by : [address] [address] Potassium, pl 4.1 3.3 - 4.9 mmol/L SEJAL PAEZ Comment:Testing performed by : [address] [address] Chloride 101 97 - 110 mmol/L SEJAL PAEZ Comment:Testing performed by : [address] [address] CO2 28 22 - 32 mmol/L SEJAL PAEZ Comment:Testing performed by : [address] [address] Anion gap 9 2 - 15 mmol/L SEJAL PAEZ Comment:Testing performed by : [address] [address] BUN 14 6 - 25 mg/dL SEJAL PAEZ Comment:Testing performed by : [address] [address] Creatinine 0.70(L) 0.80 - 1.30 mg/dL SEJAL Comment:Testing performed by : [address] [address] Glucose 98 70 - 199 mg/dL SEJAL [...] was last revised 2022. Testing performed by: [address] [address] Calcium 9.9 8.5 - 10.3 mg/dL SEJAL Comment:Testing performed by : [address] [address] Bilirubin, total 0.3 0.1 - 1.2 mg/dL SEJAL Comment:Testing performed by : [address] [address] Protein, pl 7.6 6.5 - 8.5 g/dL SEJAL Comment:Testing performed by : [address] [address] Albumin 4.4 3.5 - 5.0 g/dL SEJAL Comment:Testing performed by : [address] [address] Alk phos 94 40 - 130 Units/L SEJAL Comment:Testing performed by : [address] [address] ALT 18 7 - 55 Units/L SEJAL Comment:Testing performed by : [address], [address] AST 21 10 - 50 Units/L SEJAL Comment:Testing performed by : [place] [address], [place]., [address] Blood 02/25/2024 2:21 PM CREDIT REPRESENTATIVE 02/25/2024 2:35 PM CREDIT REPRESENTATIVE us Kip Del Rio MD LAB BLOOD ORDERABLES Final Result [facility] [address] [facility] Department [place] [address] * eGFR (02/18/2024 9:52 AM CREDIT REPRESENTATIVE) eGFR >90 >=60 mL/min/1. 73 m2 [...] last reviewed 2021. Blood 02/18/2024 9:52 AM CREDIT REPRESENTATIVE 02/18/2024 9:57 AM CREDIT REPRESENTATIVE us Kip Del Rio MD LAB BLOOD ORDERABLES Final Result [facility] Department [place] [address] * (ABNORMAL) Differential, auto (02/18/2024 9:52 AM CREDIT REPRESENTATIVE) Neutrophil abs 9.7(H) 1.5 - 6.5 K/cumm Comment:Testing performed by : [facility], [address] [place] [phone] Lymphocyte abs 0.6(L) 0.8 - 3.3 K/cumm CERNER BJ Comment:Testing performed by : [facility], [address] [place] [phone] Monocyte abs 1.2(H) 0.2 - 0.8 K/cumm CERNER BJ Comment:Testing performed by : [facility], [address] [place] [phone] Eosinophil abs 0.3 0.0 - 0.5 K/cumm CERNER BJ Comment:Testing performed by : [facility], [address] [place] [phone] Basophil abs 0.1 0.0 - 0.1 K/cumm CERNER BJ Comment:Testing performed by : [facility], [address] [place] [phone] Neutrophil pct 81.9 % CERNER BJ Comment: Interpretive Data Percent cell count reference ranges are not reported, since discordance with absolute values may lead to misinterpretation of CBC data. Current Interpretive Data was last revised on 2017. Testing performed by: [facility], [address] [place] [phone] Lymphocyte pct 5.0 % CERNER BJ Comment: Interpretive Data Percent cell count reference ranges are not reported, since discordance with absolute values may lead to misinterpretation of CBC data. Current Interpretive Data was last revised on 2017. Testing performed by: [facility], [address] [place] [phone] Monocyte pct 10.3 % CERNER BJRicardo Comment: Interpretive Data Percent cell count reference ranges are not reported, since discordance with absolute values may lead to misinterpretation of CBC data. Current Interpretive Data was last revised on 2017. Testing performed by: [facility], [address] [place] [address] Eosinophil pct 2.3 % SEJAL ARNOLD Comment: Interpretive Data Percent cell count reference ranges are not reported, since discordance with absolute values may lead to misinterpretation of CBC data. Current Interpretive Data was last revised on 2017. Testing performed by: [facility], [address] [place] [address] Basophil pct 0.5 % SEJAL ARNOLD Comment: Interpretive Data Percent cell count reference ranges are not reported, since discordance with absolute values may lead to misinterpretation of CBC data. Current Interpretive Data was last revised on 2017. Testing performed by: [facility], [address] [place] [address] Blood 02/18/2024 9:52 AM CREDIT REPRESENTATIVE 02/18/2024 9:54 AM CREDIT REPRESENTATIVE us Kip Del Rio MD LAB BLOOD ORDERABLES Final Result SEJ[facility] Department [place] [address] * (ABNORMAL) CBC with auto differential (02/18/2024 9:52 AM CREDIT REPRESENTATIVE) WBC 11.8(H) 3.8 - 9.9 K/cumm Comment:Testing performed by : [facility], [address] [place] [address] Hgb 14.1 13.0 - 17.5 g/dL SEJAL ARNOLD Comment:Testing performed by : [facility], [address] [place] [address] Hct 42.4 38.9 - 50.3 % SEJAL ARNOLD Comment:Testing performed by : [facility], [address] [place] [address] Plt 213 150 - 400 K/cumm CERRAFAELA HEARN Comment:Testing performed by : [facility], [address] [place] [address] MPV 9.6 6.8 - 10.4 fL SEJAL HEARN Comment:Testing performed by : [facility], [address] [place] [address] RBC 4.39 4.30 - 5.80 M/cumm SEJAL HEARN Comment:Testing performed by : [facility], [address] [place] [address] MCV 96.4 81.3 - 96.4 fL SEJAL HEARN Comment:Testing performed by : [facility], [address] [place] [address] MCH 32.0 27.1 - 33.3 pg SEJAL HEARN Comment:Testing performed by : [facility], [address] [place] [address] MCHC 33.2 32.3 - 35.7 g/dL SEJAL HEARN Comment:Testing performed by : [facility], [address] [place] [address] RDW CV 16.8(H) 11.1 - 14.9 % SEJAL HEARN Comment:Testing performed by : [facility], [address] [place] [address] NRBC abs 0.00 0.00 - 0.01 K/cumm [facility] Comment:Testing performed by : [facility], [address] [place] [address] Blood 02/18/2024 9:52 AM CREDIT REPRESENTATIVE 02/18/2024 9:54 AM CREDIT REPRESENTATIVE us Kip Del Rio MD LAB BLOOD ORDERABLES Final Result [facility] [facility] [place] [address] * Comprehensive metabolic panel (02/18/2024 9:52 AM CREDIT REPRESENTATIVE) Sodium 144 135 - 145 mmol/L Potassium, pl 4.7 3.3 - 4.9 mmol/L [facility] Chloride 107 97 - 110 mmol/L [facility] CO2 32 22 - 32 mmol/L [facility] Anion gap 5 2 - 15 mmol/L [facility] BUN 15 6 - 25 mg/dL [facility] Creatinine 0.81 0.80 - 1.30 mg/dL [facility] Glucose 110 70 - 199 mg/dL [facility] Comment: Interpretive Data Fasting glucose >/= [...] 2022. Calcium 9.8 8.5 - 10.3 mg/dL [facility] Bilirubin, total 0.2 0.1 - 1.2 mg/dL [facility] Protein, pl 8.0 6.5 - 8.5 g/dL [facility] Albumin 4.5 3.5 - 5.0 g/dL [facility] Alk phos 112 40 - 130 Units/L [facility] ALT 22 7 - 55 Units/L [facility] AST 25 10 - 50 Units/L [facility] Blood 02/18/2024 9:52 AM CREDIT REPRESENTATIVE 02/18/2024 9:57 AM CREDIT REPRESENTATIVE us Kip Del Rio MD LAB BLOOD ORDERABLES Final Result [facility] Department [place] [address] * CT Chest Abdomen Pelvis W Contrast (02/16/2024 6:28 PM CREDIT REPRESENTATIVE) Anatomical Region Laterality Modality Body N/A Computed Tomogra phy 02/17/2024 9:44 AM CREDIT REPRESENTATIVE Impressions 02/17/2024 12:53 PM CREDIT REPRESENTATIVE 1. ??No significant change in posttreatment [...] Vikki Way M.D. Narrative 02/17/2024 12:53 PM CREDIT REPRESENTATIVE EXAMINATION: ??Computed tomography of the chest, [...] Brain W WO Contrast (02/16/2024 5:42 PM CREDIT REPRESENTATIVE) Anatomical Region Laterality Modality Head and Neck N/A Magnetic Resonan ce 02/17/2024 8:38 AM CREDIT REPRESENTATIVE Impressions 02/17/2024 4:37 PM CREDIT REPRESENTATIVE No evidence of intracranial metastatic disease. Dictated by: Shannon Turner MD The radiology attending physician has personally reviewed this study, and had reviewed and/or edited this written report and agrees with it. Electronically signed by: Gabbi Zimmer MD Narrative 02/17/2024 4:37 PM CREDIT REPRESENTATIVE EXAMINATION: Magnetic resonance imaging (MRI) of [...] * (ABNORMAL) Differential, auto (01/21/2024 8:59 AM CREDIT REPRESENTATIVE) Neutrophil abs 6.3 1.5 - 6.5 K/cumm Comment:Testing performed by : [facility], [address] [place] [address], [place] [phone] Lymphocyte abs 1.0 0.8 - 3.3 K/cumm [facility] Comment:Testing performed by : [facility], [address] [place] [phone] Monocyte abs 1.2(H) 0.2 - 0.8 K/cumm [facility] Comment:Testing performed by : [facility], [address] [place] [phone] Eosinophil abs 0.1 0.0 - 0.5 K/cumm [facility] Comment:Testing performed by : [facility], [address] [place] [phone] Basophil abs 0.1 0.0 - 0.1 K/cumm [facility] Comment:Testing performed by : [facility], [address] [place] [phone] Neutrophil pct 72.4 % [facility] Comment: Interpretive Data Percent cell count reference ranges are not reported, since discordance with absolute values may lead to misinterpretation of CBC data. Current Interpretive Data was last revised on 2017. Testing performed by: [facility], [address] [place] [phone] Lymphocyte pct 11.6 % [facility] Comment: Interpretive Data Percent cell count reference ranges are not reported, since discordance with absolute values may lead to misinterpretation of CBC data. Current Interpretive Data was last revised on 2017. Testing performed by: [facility], [address] [place] [phone] Monocyte pct 13.6 % [facility] Comment: Interpretive Data Percent cell count reference ranges are not reported, since discordance with absolute values may lead to misinterpretation of CBC data. Current Interpretive Data was last revised on 2017. Testing performed by: [facility], [address] [place] [phone] Eosinophil pct 1.7 % [facility] Comment: Interpretive Data Percent cell count reference ranges are not reported, since discordance with absolute values may lead to misinterpretation of CBC data. Current Interpretive Data was last revised on 2017. Testing performed by: [facility], [address] [place] [phone] Basophil pct 0.7 % [facility] Comment: Interpretive Data Percent cell count reference ranges are not reported, since discordance with absolute values may lead to misinterpretation of CBC data. Current Interpretive Data was last revised on 2017. Testing performed by: [facility], [address] [place] [address] Blood 01/21/2024 8:59 AM CREDIT REPRESENTATIVE 01/21/2024 9:01 AM CREDIT REPRESENTATIVE Kip Del Rio MD LAB BLOOD ORDERABLES Final Result [facility] Department [place] [address] * (ABNORMAL) CBC with auto differential (01/21/2024 8:59 AM CREDIT REPRESENTATIVE) WBC 8.6 3.8 - 9.9 K/cumm Comment:Testing performed by : [facility], [address] [place] [address] Hgb 14.7 13.0 - 17.5 g/dL [facility] Comment:Testing performed by : [facility], [address] [place] [address] Hct 43.9 38.9 - 50.3 % [facility] Comment:Testing performed by : [facility], [address] [place] [address] Plt 210 150 - 400 K/cumm [facility] Comment:Testing performed by : [facility], [address] [place] [address] MPV 9.7 6.8 - 10.4 fL [facility] Comment:Testing performed by : [facility], [address] [place] [address] RBC 4.66 4.30 - 5.80 M/cumm [facility] Comment:Testing performed by : [facility], [address] [place] [address] MCV 94.3 81.3 - 96.4 fL [facility] Comment:Testing performed by : [facility], [address] [place], [place] [phone] MCH 31.6 27.1 - 33.3 pg [facility] Comment:Testing performed by : [facility], [address] [place], [place] [phone] MCHC 33.6 32.3 - 35.7 g/dL [facility] Comment:Testing performed by : [facility], [address] [place], [place] [phone] RDW CV 17.7(H) 11.1 - 14.9 % [facility] Comment:Testing performed by : [facility], [address] [place], [place] [phone] NRBC abs 0.00 0.00 - 0.01 K/cumm [facility] Comment:Testing performed by : [facility], [address] [place], [place] [phone] Blood 01/21/2024 8:59 AM CREDIT REPRESENTATIVE 01/21/2024 9:01 AM CREDIT REPRESENTATIVE us Kip Del Rio MD LAB BLOOD ORDERABLES Final Result [facility] Department [place] [address] * eGFR (01/21/2024 8:57 AM CREDIT REPRESENTATIVE) eGFR >90 >=60 mL/min/1. 73 m2 [...] last reviewed 2021. Blood 01/21/2024 8:57 AM CREDIT REPRESENTATIVE 01/21/2024 9:05 AM CREDIT REPRESENTATIVE us Kip Del Rio MD LAB BLOOD ORDERABLES Final Result [facility] [place] [address] * (ABNORMAL) Comprehensive metabolic panel (01/21/2024 8:57 AM CREDIT REPRESENTATIVE) Sodium 140 135 - 145 mmol/L Potassium, pl 4.7 3.3 - 4.9 mmol/L [facility] Chloride 101 97 - 110 mmol/L [facility] CO2 32 22 - 32 mmol/L [facility] Anion gap 7 2 - 15 mmol/L [facility] BUN 17 6 - 25 mg/dL [facility] Creatinine 0.73(L) 0.80 - 1.30 mg/dL [facility] Glucose 103 70 - 199 mg/dL [facility] Comment: Interpretive Data Fasting glucose >/= [...] 2022. Calcium 10.5(H) 8.5 - 10.3 mg/dL [facility] Bilirubin, total 0.4 0.1 - 1.2 mg/dL [facility] Protein, pl 8.5 6.5 - 8.5 g/dL [facility] Albumin 4.6 3.5 - 5.0 g/dL [facility] Alk phos 93 40 - 130 Units/L [facility] ALT 21 7 - 55 Units/L [facility] AST 23 10 - 50 Units/L [facility] Blood 01/21/2024 8:57 AM CREDIT REPRESENTATIVE 01/21/2024 9:05 AM CREDIT REPRESENTATIVE us Kip Del Rio MD LAB BLOOD ORDERABLES Final Result [facility] [place] [address] * eGFR (12/24/2023 12:27 PM CDT) eGFR [...] Rio MD LAB BLOOD ORDERABLES Final Result [facility] [place] [address] * Comprehensive metabolic panel (12/24/2023 12:27 PM CDT) Sodium 140 135 - 145 mmol/L Potassium, pl 4.2 3.3 - 4.9 mmol/L [facility] Chloride 102 97 - 110 mmol/L [facility] CO2 32 22 - 32 mmol/L [facility] Anion gap 6 2 - 15 mmol/L [facility] BUN 16 6 - 25 mg/dL [facility] Creatinine 0.87 0.80 - 1.30 mg/dL [facility] Glucose 98 70 - 199 mg/dL [facility] Comment: Interpretive Data Fasting glucose >/= [...] 2022. Calcium 10.1 8.5 - 10.3 mg/dL [facility] Bilirubin, total 0.4 0.1 - 1.2 mg/dL [facility] Protein, pl 7.8 6.5 - 8.5 g/dL [facility] Albumin 4.4 3.5 - 5.0 g/dL [facility] Alk phos 83 40 - 130 Units/L [facility] ALT 15 7 - 55 Units/L [facility] AST 21 10 - 50 Units/L [facility] Blood 12/24/2023 12:2 7 PM CDT 12/24/2023 12:34 PM CDT Kip Del Rio MD LAB BLOOD ORDERABLES Final Result [facility] [place] [address] * (ABNORMAL) Differential, auto (12/24/2023 12:23 PM CDT) Neutrophil abs 5.0 1.5 - 6.5 K/cumm Comment:Testing performed by : [facility], [address] [place] [phone] Lymphocyte abs 1.4 0.8 - 3.3 K/cumm [facility] Comment:Testing performed by : [facility], [address] [place] [phone] Monocyte abs 1.1(H) 0.2 - 0.8 K/cumm [facility] Comment:Testing performed by : [facility], [address] [place] [phone] Eosinophil abs 0.2 0.0 - 0.5 K/cumm [facility] Comment:Testing performed by : [facility], [address] [place] [phone] Basophil abs 0.1 0.0 - 0.1 K/cumm [facility] Comment:Testing performed by : [facility], [address] [place] [phone] Neutrophil pct 63.8 % [facility] Comment: Interpretive Data Percent cell count reference ranges are not reported, since discordance with absolute values may lead to misinterpretation of CBC data. Current Interpretive Data was last revised on 2017. Testing performed by: [facility], [address] [place] [phone] Lymphocyte pct 18.3 % [facility] Comment: Interpretive Data Percent cell count reference ranges are not reported, since discordance with absolute values may lead to misinterpretation of CBC data. Current Interpretive Data was last revised on 2017. Testing performed by: [facility], [address] [place] [phone] Monocyte pct 14.3 % [facility] Comment: Interpretive Data Percent cell count reference ranges are not reported, since discordance with absolute values may lead to misinterpretation of CBC data. Current Interpretive Data was last revised on 2017. Testing performed by: [facility], [address] [place] [phone] Eosinophil pct 2.7 % [facility] Comment: Interpretive Data Percent cell count reference ranges are not reported, since discordance with absolute values may lead to misinterpretation of CBC data. Current Interpretive Data was last revised on 2017. Testing performed by: [facility], [address] [place] [phone] Basophil pct 0.9 % [facility] Comment: Interpretive Data Percent cell count reference ranges are not reported, since discordance with absolute values may lead to misinterpretation of CBC data. Current Interpretive Data was last revised on 2017. Testing performed by: [facility], [address] [place] [phone] Blood 12/24/2023 12:2 3 PM CDT 12/24/2023 12:31 PM CDT us Kip Del Rio MD LAB BLOOD ORDERABLES Final Result [facility] [place] [address] * (ABNORMAL) CBC with auto differential (12/24/2023 12:23 PM CDT) WBC 7.8 3.8 - 9.9 K/cumm Comment:Testing performed by : [facility], [address] [place] [address] Hgb 14.0 13.0 - 17.5 g/dL [facility] Comment:Testing performed by : [facility], [address] [place] [address] Hct 42.5 38.9 - 50.3 % [facility] Comment:Testing performed by : [facility], [address] [place], [place] [phone] Plt 198 150 - 400 K/cumm [facility] Comment:Testing performed by : [facility], [address] [place] [address] MPV 9.7 6.8 - 10.4 fL [facility] Comment:Testing performed by : [facility], [address] [place], [place] [phone] RBC 4.57 4.30 - 5.80 M/cumm [facility] Comment:Testing performed by : [facility], [address] [place] [address] MCV 93.1 81.3 - 96.4 fL [facility] Comment:Testing performed by : [facility], [address] [place] [address] MCH 30.7 27.1 - 33.3 pg [facility] Comment:Testing performed by : [facility], [address] [place] [address] MCHC 33.0 32.3 - 35.7 g/dL [facility] Comment:Testing performed by : [facility], [address] [place] [address] RDW CV 17.3(H) 11.1 - 14.9 % [facility] Comment:Testing performed by : [facility], [address] [place] [address] NRBC abs 0.00 0.00 - 0.01 K/cumm [facility] Comment:Testing performed by : [facility], [address] [place] [address] Blood 12/24/2023 12:2 3 PM CDT 12/24/2023 12:31 PM CDT us Kip Del Rio MD LAB BLOOD ORDERABLES Final Result [facility] [place] [address] * CT Chest Abdomen Pelvis W Contrast [...] POCT creatinine (12/22/2023 11:17 AM CDT) Pathologist [facility] Creatinine POC 0.9 0.7 - 1.3 mg/dL Blood 12/22/2023 11:1 7 AM CDT 12/22/2023 11:17 AM CDT Jacob Flynn MD LAB POCT ORDERABLES - DEVICE Final Result [facility] [place] [address] * PSA, total and free (05/10/2019 12:35 PM CREDIT REPRESENTATIVE) Free PSA Screen 0.4 ng/mL [employer] PROSTATE SPECIFIC AG, TOTAL 1.9 0.0 - 4.0 ng/mL [facility] Comment: INTERPRETIVE INFORMATION: Prostate Specific Antigen The [...] PROSTATE SPECIFIC AG, % FREE 21 % [employer] Comment: INTERPRETIVE INFORMATION: Prostate Specific Antigen, Free Percentage [employer] uses the [employer] Free PSA electrochemiluminescent immunoassay [...] prostate cancer in individual patients. Performed by [facility], [address] [id number] [email or web address], Carlyle Stewart MD, Lab. Director Blood specimen (specimen) 05/10/2019 12:35 PM CREDIT REPRESENTATIVE 05/10/2019 1:05 PM CREDIT REPRESENTATIVE Narrative Resulting Agency Comment CLI us Alexis Lopez MD LAB BLOOD ORDERABLES Marianne conde Result [employer] [address] [place] [address], [facility] [phone] from Last 3 Months or Most Recently Relevant to Health Maintenance Insurance [facility] CHOICE PLUS [employer] CLAIMS [employer] CLAIMS Advance Directives For more information, please contact: [phone] * Full Code (Latest Code Status on File) Date Activated Date Inactivated Comments 10/16/2023 7:50 AM 10/17/2023 4:55 AM * Full Code Date Activated Date Inactivated Comments 05/26/2019 9:27 PM 05/30/2019 9:19 PM Care Teams Automatic Print Developer Relationship Specialty Start Date End Date Clara Stanley PA [address] [place] [address] PCP - General Nurse Practitioner 04/05/19 Jasper Canchola MD [address] [place] [address] Surgeon Thoracic Surgery 05/11/19 Alexis Lopez MD [address] [address] Lugger Pulmonary Disease 05/11/19 Kip Del Rio MD [address] [place] [address] Medical Oncologist/Registration Manager Hematology and Oncology 05/11/19 Jacob Flynn MD [address] [place] [address] Radiation Oncologist Radiation Oncology 05/25/19 Renetta Ballesteros NP [address] [place] [address] Nurse Practitioner Radiation Oncology 06/11/22
--- OUTSIDE RECORDS SUMMARY | 2024-03-02 04:18 | XMS_ITS | Encounter Summary ---
Author Organization [facility] Address [address] [place] [address] Care Team Providers Care Professional Caster Name Role Phone Clara Stanley Primary Care Provider + Jasper Canchola MD Unavailable Alexis Lopez MD Unavailable Kip Del Rio MD Unavailable [phone] Jacob Flynn MD Unavailable Renetta Ballesteros NP Unavailable [phone] Reason for Visit * Reason Onset Date Comments Medical Question/Miscellaneous 02/27/2024 Encounter Details Date Type Department Care Team (Late st Contact Info) Description 02/27/2024 Telephone [facility] [address] [place] [address] Beverly Rice NP [address] [place] [address] Medical Question/Miscellaneous Social History Tobacco Use Types [...] on file Legal Sex Male 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 This was communicated to the patient. ISSION BROKER documented in this encounter Plan of Treatment Not on file documented as of this encounter Visit Diagnoses Not on filedocumented in this encounter Care Teams Professional Caster Relationship Specialty Start Date End Date Clara Stanley PA [address] [place] [id number] PCP - General Nurse Practitioner 04/05/19 Jasper Canchola MD [address] [place] [address] Surgeon Thoracic Surgery 05/11/19 Alexis Loepz MD [address] [place] [address] [address] Food Service Attendant Pulmonary Disease 05/11/19 Kip Del Rio MD [address] [facility] [address] [place] [address] Medical Oncologist/Primer Press Operator Hematology and Oncology 05/11/19 Jacob Flynn MD [address] [facility] [address] [place] [address] Radiation Oncologist Radiation Oncology 05/25/19 Renetta Ballesteros NP [address] [facility] [address] [place] [address] Nurse Practitioner Radiation Oncology 06/11/22 documented as of this encounter
--- OUTSIDE RECORDS SUMMARY | 2024-03-02 04:18 | XMS_ITS | Encounter Summary ---
Author Organization [facility] Address [address] [place] [address] Phone Care Team Providers Care Course Developer Name Role Phone Clara Stanley Primary Care Provider + Jasper Canchola MD Unavailable Alexis Lopez MD Unavailable Kip Del Rio MD Unavailable [phone] Jacob Flynn MD Unavailable Renetta Ballesteros NP Unavailable Encounter Details Date Type Department Care Team (Late st Contact Info) Description 02/18/2024 Orders Only [facility] Oncology [address] [place] [address] Kip Del Rio MD [address] [facility] [address] [place], [place] [id number] Neuroendocrine carcinoma of lung (HCC) (Primary Dx); [...] on file Legal 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 Male 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 Gender Identity Not on file Sexual Orientation [...] documented as of this encounter Care Teams Course Developer Relationship Specialty Start Date End Date Clara Stanley PA [address] [place] [address] PCP - General Nurse Practitioner 04/05/19 Jasper Canchola MD [address] [place] [id number] Surgeon Thoracic Surgery 05/11/19 Alexis Lopez MD [address] [facility] [address] [address] Canvassing Manager Pulmonary Disease 05/11/19 Kip Del Rio MD [address] [place] [address] Medical Oncologist/Electric Distribution Engineer Hematology and Oncology 05/11/19 Jacob Flynn MD [address] [place] [address] Radiation Oncologist Radiation Oncology 05/25/19 Renetta Ballesteros NP [address] [place] [address] Nurse Practitioner Radiation Oncology 06/11/22 documented as of this encounter
--- OUTSIDE RECORDS SUMMARY | 2024-03-02 04:18 | XMS_ITS | Encounter Summary ---
Author Organization [facility] Address [address] [place] [address] Phone Care Team Providers Care Media Traffic Manager Name Role Phone Clara Stanley Primary Care Provider + Jasper Canchola MD Unavailable Alexis Lopez MD Unavailable Kip Del Rio MD Unavailable [phone] Jacob Flynn MD Unavailable Renetta Ballesteros NP Unavailable Encounter Details Date Type Department Care Team (Late st Contact Info) Description 02/18/2024 Orders Only [facility] Oncology [address] [facility] Floor [address] [place] [phone] Rick Sánchez, [facility] Social History Tobacco Use Types Packs/Day Years [...] on file Legal 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 Male 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 CASING MIXER Gender Identity Not on file Sexual Orientation Straight 09/22/2019 8: 21 PM CDT 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 on file Not on file documented as of this encounter Plan of Treatment Not on file documented as of this encounter Visit Diagnoses Not on filedocumented in this encounter Care Teams Media Traffic Manager Relationship Specialty Start Date End Date Clara Stanley PA [address] [place] [address] PCP - General Nurse Practitioner 04/05/19 Jasper Canchola MD [address] [place] [address] Surgeon Thoracic Surgery 05/11/19 Alexis Lopez MD [address] [address] Physical Therapy Coordinator Pulmonary Disease 05/11/19 Kip Del Rio MD [address] [place] [address] Medical Oncologist/Retort Load Expediter Hematology and Oncology 05/11/19 Jacob Flynn MD [address] [place] [address] Radiation Oncologist Radiation Oncology 05/25/19 Renetta Ballesteros NP [address] [place] [address] Nurse Practitioner Radiation Oncology 06/11/22 documented as of this encounter
--- OUTSIDE RECORDS SUMMARY | 2024-03-02 04:18 | XMS_ITS | Encounter Summary ---
Author Organization [facility] Healthcare Address [address] [place] [address] Care Team Providers Care Intensive Care Unit Nurse Name Role Phone Clara Stanley Primary Care Provider + Jasper Canchola MD Unavailable Alexis Lopez MD Unavailable Kip Del Rio MD Unavailable Jacob Flynn MD Unavailable Renetta Ballesteros NP Unavailable Encounter Details Date Type Department Care Team (Late st Contact Info) Description 02/18/2024 9:45 AM MARINE FUEL DOCK ATTENDANT Lab [facility] [place] - Lab Collection [address] [facility] [place] [address] [place] [address] Neuroendocrine carcinoma of lung (HCC); Secondary malignant [...] on file Legal Sex Male 1:17 AM MARINE FUEL DOCK ATTENDANT Gender Identity Not on file Sexual Orientation Straight 09/22/2019 8: 21 PM CDT 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 on file Not on file documented as of this encounter Plan of Treatment Not on file documented as of this encounter Procedures Procedure Name Priority Date/Time Associated Diagnosis Comments EGFR Routine 02/18/2024 9:52 AM MARINE FUEL DOCK ATTENDANT 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) DIFFERENTIAL AUTO Routine 02/18/2024 9:5 2 AM MARINE FUEL DOCK ATTENDANT 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 73 m2 Comment: [...] last reviewed 2021. Blood 02/18/2024 9:52 AM MARINE FUEL DOCK ATTENDANT 02/18/2024 9:57 AM MARINE FUEL DOCK ATTENDANT us Kip Del Rio MD LAB BLOOD ORDERABLES Final Result [facility] Department [place] [address] * (ABNORMAL) Differential, auto (02/18/2024 9:52 AM MARINE FUEL DOCK ATTENDANT) Neutrophil abs 9.7(H) 1.5 - 6.5 K/cumm Comment:Testing performed by : [facility], [address] [place], [place] [phone] Lymphocyte abs 0.6(L) 0.8 - 3.3 K/cumm [facility] Comment:Testing performed by : [facility], [address] [place] [phone] Monocyte abs 1.2(H) 0.2 - 0.8 K/cumm [facility] Comment:Testing performed by : [facility], [address] [place] [phone] Eosinophil abs 0.3 0.0 - 0.5 K/cumm [facility] Comment:Testing performed by : [facility], [address] [place] [phone] Basophil abs 0.1 0.0 - 0.1 K/cumm [facility] Comment:Testing performed by : [facility], [address] [place] [phone] Neutrophil pct 81.9 % [facility] Comment: Interpretive Data Percent cell count reference ranges are not reported, since discordance with absolute values may lead to misinterpretation of CBC data. Current Interpretive Data was last revised on 2017. Testing performed by: [facility], [address] [place] [phone] Lymphocyte pct 5.0 % [facility]J Comment: Interpretive Data Percent cell count reference ranges are not reported, since discordance with absolute values may lead to misinterpretation of CBC data. Current Interpretive Data was last revised on 2017. Testing performed by: [facility], [address] [place] [phone] Monocyte pct 10.3 % [facility] Comment: Interpretive Data Percent cell count reference ranges are not reported, since discordance with absolute values may lead to misinterpretation of CBC data. Current Interpretive Data was last revised on 2017. Testing performed by: [facility], [address] [place] [phone] Eosinophil pct 2.3 % [facility] Comment: Interpretive Data Percent cell count reference ranges are not reported, since discordance with absolute values may lead to misinterpretation of CBC data. Current Interpretive Data was last revised on 2017. Testing performed by: [facility], [address] [place] [phone] Basophil pct 0.5 % [facility] Comment: Interpretive Data Percent cell count reference ranges are not reported, since discordance with absolute values may lead to misinterpretation of CBC data. Current Interpretive Data was last revised on 2017. Testing performed by: [facility], [address] [place] [phone] Blood 02/18/2024 9:52 AM MARINE FUEL DOCK ATTENDANT 02/18/2024 9:54 AM MARINE FUEL DOCK ATTENDANT us Kip Del Rio MD LAB BLOOD ORDERABLES Final Result [facility] Department of [place] [id number] * (ABNORMAL) CBC with auto differential (02/18/2024 9:52 AM MARINE FUEL DOCK ATTENDANT) WBC 11.8(H) 3.8 - 9.9 K/cumm Comment:Testing performed by : [facility], [address] [place] [address] Hgb 14.1 13.0 - 17.5 g/dL [facility]J Comment:Testing performed by : [facility], [address] [place] [address] Hct 42.4 38.9 - 50.3 % [facility]J Comment:Testing performed by : [facility], [address] [place] [address] Plt 213 150 - 400 K/cumm [facility]J Comment:Testing performed by : [facility], [address] [place] [address] MPV 9.6 6.8 - 10.4 fL [facility]J Comment:Testing performed by : [facility], [address] [place] [address] RBC 4.39 4.30 - 5.80 M/cumm [facility] Comment:Testing performed by : [facility], [address] [place] [address] MCV 96.4 81.3 - 96.4 fL [facility]J Comment:Testing performed by : [facility], [address] [place] [address] MCH 32.0 27.1 - 33.3 pg [facility] BJ Comment:Testing performed by : [facility], [address] [place] [address] MCHC 33.2 32.3 - 35.7 g/dL [facility] Comment:Testing performed by : [facility], [address] [place] [address] RDW CV 16.8(H) 11.1 - 14.9 % [facility]J Comment:Testing performed by : [facility], [address] [place] [phone] NRBC abs 0.00 0.00 - 0.01 K/cumm [facility] Comment:Testing performed by : [facility], [address] [place] [address] Blood 02/18/2024 9:52 AM MARINE FUEL DOCK ATTENDANT 02/18/2024 9:54 AM MARINE FUEL DOCK ATTENDANT Kip Del Rio MD LAB BLOOD ORDERABLES Final Result [facility] Department [place] [address] * Comprehensive metabolic panel (02/18/2024 9:52 AM MARINE FUEL DOCK ATTENDANT) Sodium 144 135 - 145 mmol/L Potassium, pl 4.7 3.3 - 4.9 mmol/L [facility] Chloride 107 97 - 110 mmol/L [facility] CO2 32 22 - 32 mmol/L [facility] Anion gap 5 2 - 15 mmol/L [facility] BUN 15 6 - 25 mg/dL [facility] Creatinine 0.81 0.80 - 1.30 mg/dL [facility] Glucose 110 70 - 199 mg/dL [facility] Comment: Interpretive Data Fasting glucose [...] 2022. Calcium 9.8 8.5 - 10.3 mg/dL [facility] Bilirubin, total 0.2 0.1 - 1.2 mg/dL [facility] Protein, pl 8.0 6.5 - 8.5 g/dL [facility] Albumin 4.5 3.5 - 5.0 g/dL [facility] Alk phos 112 40 - 130 Units/L [facility] ALT 22 7 - 55 Units/L [facility] AST 25 10 - 50 Units/L [facility] Blood 02/18/2024 9:52 AM MARINE FUEL DOCK ATTENDANT 02/18/2024 9:57 AM MARINE FUEL DOCK ATTENDANT Kip Del Rio MD LAB BLOOD ORDERABLES Final Result [facility] One [facility] Department [place] [address] documented in this encounter Visit Diagnoses Diagnosis 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 documented in this encounter Care Teams Intensive Care Unit Nurse Relationship Specialty Start Date End Date Clara Stanley PA [address] [place] [address] PCP - General Nurse Practitioner 04/05/19 Jasper Canchola MD [address] [place] [address] Surgeon Thoracic Surgery 05/11/19 Alexis Lopez MD [address] [address] Bonded Strand Operator Pulmonary Disease 05/11/19 Kip Del Rio MD [address] [facility] [address] [place] [address] Medical Oncologist/Title Attorney Hematology and Oncology 05/11/19 Jacob Flynn MD [address] [facility] [address] [place] [address] Radiation Oncologist Radiation Oncology 05/25/19 Renetta Ballesteros NP [address] [facility] [address] [place] [address] Nurse Practitioner Radiation Oncology 06/11/22 documented as of this encounter
--- OUTSIDE RECORDS SUMMARY | 2024-03-02 04:19 | XMS_ITS | Encounter Summary ---
Author Organization [facility] Healthcare Address [address] [place] [address] Care Team Providers Care Veterinary Bacteriologist Name Role Phone Clara Stanley Primary Care Provider + Jasper Canchola MD Unavailable Alexis Lopez MD Unavailable Kip Del Rio MD Unavailable Jacob Flynn MD Unavailable [phone] Renetta Ballesteros NP Unavailable Reason for Visit * Reason Onset Date Comments Prior Auth 10/22/2023 Encounter Details Date Type Department Care Team (Late st Contact Info) Description 10/22/2023 Documentation [facility] [address] [facility] Advanced Medicine 7th [place] [address] Ling Juan CPhT Prior Auth Social History [...] on file Legal Sex 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 Gender Identity Not on file Sexual Orientation Straight 09/22/2019 8: 21 PM CDT 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 New auth keys were started. 100mg : [id number] 180MG : [id number]. Both strengths completed and response was that this medication does not require a prior auth. Test claims stated that the scripts will be covered when filled thru [facility] specialty pharmacy. Team notified, [facility] [...] Akbar Obtained?: tbd by filling pharmacy PAP (Relay Engineer Free Drug) application Obtained?: NO Foundation/Organization: NEXT STEPS: [team notified to send scripts to [facility] specialty, patient called, informed they will notship the medication until they speak to the patient, patient understood PHARMACY INFORMATION: CAN THIS DRUG BE FILLED AT [facility]?: no DOES THIS DRUG REQUIRE THE USE OF A OUTSIDE SPECIALTY PHARMACY?: yes DISPENSING PHARMACY NAME [facility] Specialty [phone] PHARMACY CLAIM BENEFIT INVESTIGATION AND CO-PAYMENT SUMMARY [...] on filedocumented in this encounter Care Teams Veterinary Bacteriologist Relationship Specialty Start Date End Date Clara Stanley PA [address] [place] [address] PCP - General Nurse Practitioner 04/05/19 Jasper Canchola MD [address] [place] [address] Surgeon Thoracic Surgery 05/11/19 Alexis Lopez MD [address] [address] Copy Center Specialist Pulmonary Disease 05/11/19 Kip Del Rio MD [address] [place] [address] Medical Oncologist/Paper Cleaner Hematology and Oncology 05/11/19 Jacob Flynn MD [address] [place] [address] Radiation Oncologist Radiation Oncology 05/25/19 Renetta Ballesteros NP [address] [place] [address] Nurse Practitioner Radiation Oncology 06/11/22 documented as of this encounter
--- OUTSIDE RECORDS SUMMARY | 2024-03-02 04:19 | XMS_ITS | Encounter Summary ---
Author Organization [facility] Address [address] [place] [address] Care Team Providers Care Spiral Weaver Name Role Phone Clara Stanley Primary Care Provider + Jasper Canchola MD Unavailable Alexis Lopez MD Unavailable [phone] Kip Del Rio MD Unavailable Jacob Flynn MD Unavailable Renetta Ballesteros NP Unavailable [phone] Reason for Referral * MRI/CAT/PET Scan (Routine) - Closed Specialty Diagnoses / Procedures Referred By Contac t Referred To Contact Radiology Diagnoses Primary cancer of right lower lobe of lung (HCC) Right lower lobe pulmonary nodule Radiotherapy follow-up examination 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 MEDICARE COORDINATOR Gender Identity Not on file Sexual [...] POCT ORDERABLES - DE VICE Final Result [facility] Department [place] [address] documented in this encounter Visit Diagnoses Diagnosis [...] 12/2023 documented in this encounter Care Teams Spiral Weaver Relationship Specialty Start Date End Date Clara Stanley PA [address] [place] [address] PCP - General Nurse Practitioner 04/05/19 Jasper Canchola MD [address] [place] [address] Surgeon Thoracic Surgery 05/11/19 Alexis Lopez MD [address] [address] Clinical Business Analyst Pulmonary Disease 05/11/19 Kip Del Rio MD [address] [place] [address] Medical Oncologist/Assurance Officer Hematology and Oncology 05/11/19 Jacob Flynn MD [address] [place] [address] Radiation Oncologist Radiation Oncology 05/25/19 Renetta Ballesteros NP [address] [place] [address] Nurse Practitioner Radiation Oncology 06/11/22 documented as of this encounter
--- OUTSIDE RECORDS SUMMARY | 2024-03-02 04:19 | XMS_ITS | Encounter Summary ---
Author Organization [facility] Healthcare Address [address] [place] [address] Phone Care Team Providers Care Kiln Car Repairer Name Role Phone Clara Stanley Primary Care Provider + Jasper Canchola MD Unavailable Alexis Lopez MD Unavailable Kip Del Rio MD Unavailable Jacob Flynn MD Unavailable [phone] Renetta Ballesteros NP Unavailable [phone] Encounter Details Date Type Department Care Team (Late st Contact Info) Description 12/04/2023 Telephone [facility] Oncology [address] [facility] Advanced Medicine 7th [place] [address] [place] [address] Imelda De Leon, KAMILA Social [...] on file Legal 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 Male 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 CARBURETOR SPECIALIST Gender Identity Not on file Sexual [...] on filedocumented in this encounter Care Teams Kiln Car Repairer Relationship Specialty Start Date End Date Clara Stanley PA [address] [place] [address] PCP - General Nurse Practitioner 04/05/19 Jasper Canchola MD [address] [place] [address] Surgeon Thoracic Surgery 05/11/19 Alexis Lopez MD [address] [facility] [place] [address] Shoe Cementer Pulmonary Disease 05/11/19 Kip Del Rio MD [address] [facility] [address] [place], [place] [id number] Medical Oncologist/Foreign Legal Consultant Hematology and Oncology 05/11/19 Jacob Flynn MD [address] [facility] [address] [place] [address] Radiation Oncologist Radiation Oncology 05/25/19 Renetta Ballesteros NP [address] [facility] [address] [place] [address] Nurse Practitioner Radiation Oncology 06/11/22 documented as of this encounter
--- OUTSIDE RECORDS SUMMARY | 2024-03-02 04:19 | XMS_ITS | Encounter Summary ---
Author Organization [facility] Address [address] [place] [address] Care Team Providers Care Assembler Equipment Name Role Phone Clara Stanley Primary Care Provider + Jasper Canchola MD Unavailable Alexis Lopez MD Unavailable [phone] Kip Del Rio MD Unavailable Jacob Flynn MD Unavailable Renetta Ballesteros NP Unavailable [phone] Reason for Referral * MRI/CAT/PET Scan (Routine) - Closed Specialty Diagnoses / Procedures Referred By Contac t Referred To Contact Radiology Diagnoses Malignant neoplasm of lower lobe of right lung (HCC) Primary cancer of right lower lobe of lung (HCC) Neuroendocrine carcinoma of lung (HCC) Procedures CT Chest Abdomen Pelvis W Contrast Renetta Ballesteros NP [address] [facility] [address] [place] [address] Phone: tel: fax: [address] [phone] Referral ID Status Reason Start Date Expiration Date Visits Re quested Visits Authorized [id number] Closed 03/16/2023 01/28/2024 1 1 Encounter Details Date Type Department Care Team (Late st Contact Info) Description 12/29/2022 Orders Only [facility] Advanced Medicine Radiation Oncology [address] [facility] [place] [address] Amelie Lorenzo MA Malignant neoplasm of lower [...] on file Legal Sex Male 1:17 AM INTERNIST MEDICAL DOCTOR MD Gender Identity Not on file Sexual Orientation [...] (HCC) documented in this encounter Care Teams Assembler Equipment Relationship Specialty Start Date End Date Clara Stanley PA [address] [place] [address] PCP - General Nurse Practitioner 04/05/19 Jasper Canchola MD [address] [place] [address] Surgeon Thoracic Surgery 05/11/19 Alexis Lopez MD [address] [facility] [address] Kiln Hand Pulmonary Disease 05/11/19 Kip Del Rio MD [address] [email or web address] [address] [place], [place] [id number] Medical Oncologist/Unarmed Security Officer Hematology and Oncology 05/11/19 Jacob Flynn MD [address] [email or web address] [address] [place], [place] [id number] Radiation Oncologist Radiation Oncology 05/25/19 Renetta Ballesteros NP [address] [email or web address] [address] [place] [address] Nurse Practitioner Radiation Oncology 06/11/22 documented as of this encounter
--- OUTSIDE RECORDS SUMMARY | 2024-03-02 04:19 | XMS_ITS | Encounter Summary ---
Author Organization [facility] Address [address] [place] [address] Care Team Providers Care Wrecking Crane Engine Operator Name Role Phone Clara Stanley Primary Care Provider + Jasper Canchola MD Unavailable Alexis Lopez MD Unavailable [phone] Kip Del Rio MD Unavailable Jacob Flynn MD Unavailable Renetta Ballesteros NP Unavailable Encounter Details Date Type Department Care Team (Late st Contact Info) Description 01/21/2024 9:00 AM LEAK INSPECTOR Lab [facility] [place] - Lab Collection [address] [facility] Floor [address] [place] [address] Neuroendocrine carcinoma of lung (HCC); Secondary malignant [...] on file Legal Sex Male 1:17 AM LEAK INSPECTOR Gender Identity Not on file Sexual Orientation Straight 09/22/2019 8: 21 PM CDT 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 on file Not on file documented as of this encounter Plan of Treatment Not on file documented as of this encounter Procedures Procedure Name Priority Date/Time Associated Diagnosis Comments DIFFERENTIAL AUTO Routine 01/21/2024 8:5 9 AM LEAK INSPECTOR 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) CBC WITH AUTO DIFFERENTIAL Routine 01/21/2024 8:59 AM LEAK INSPECTOR 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) EGFR Routine 01/21/2024 8:57 AM LEAK INSPECTOR 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) COMPREHENSIVE METABOLIC PANEL Routine 01/21/2024 8:57 AM LEAK INSPECTOR 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) documented in this encounter Results * (ABNORMAL) Differential, auto (01/21/2024 8:59 AM LEAK INSPECTOR) Neutrophil abs 6.3 1.5 - 6.5 K/cumm Comment:Testing performed by : [facility], [address] [place], [place] [id number] Lymphocyte abs 1.0 0.8 - 3.3 K/cumm CERNER BJ Comment:Testing performed by : [facility], [address] [place] [address] Monocyte abs 1.2(H) 0.2 - 0.8 K/cumm CERNER BJ Comment:Testing performed by : [facility], [address] [place], [place] [phone] Eosinophil abs 0.1 0.0 - 0.5 K/cumm CERNER BJ Comment:Testing performed by : [facility], [address] [place] [phone] Basophil abs 0.1 0.0 - 0.1 K/cumm [facility] Comment:Testing performed by : [facility], [address] [place] [phone] Neutrophil pct 72.4 % [facility] Comment: Interpretive Data Percent cell count reference ranges are not reported, since discordance with absolute values may lead to misinterpretation of CBC data. Current Interpretive Data was last revised on 2017. Testing performed by: [facility], [address] [place] [phone] Lymphocyte pct 11.6 % CERNER BJ Comment: Interpretive Data Percent cell count reference ranges are not reported, since discordance with absolute values may lead to misinterpretation of CBC data. Current Interpretive Data was last revised on 2017. Testing performed by: [facility], [address] [place] [phone] Monocyte pct 13.6 % CERNER BJ Comment: Interpretive Data Percent cell count reference ranges are not reported, since discordance with absolute values may lead to misinterpretation of CBC data. Current Interpretive Data was last revised on 2017. Testing performed by: [facility], [address] [place] [phone] Eosinophil pct 1.7 % [facility] Comment: Interpretive Data Percent cell count reference ranges are not reported, since discordance with absolute values may lead to misinterpretation of CBC data. Current Interpretive Data was last revised on 2017. Testing performed by: [facility], [address] [place] [phone] Basophil pct 0.7 % CERNER [facility]J Comment: Interpretive Data Percent cell count reference ranges are not reported, since discordance with absolute values may lead to misinterpretation of CBC data. Current Interpretive Data was last revised on 2017. Testing performed by: [facility], [address] [place] [phone] Blood 01/21/2024 8:59 AM LEAK INSPECTOR 01/21/2024 9:01 AM LEAK INSPECTOR us Kip Del Rio MD LAB BLOOD ORDERABLES Final Result [facility] Department [place] [address] * (ABNORMAL) CBC with auto differential (01/21/2024 8:59 AM LEAK INSPECTOR) WBC 8.6 3.8 - 9.9 K/cumm Comment:Testing performed by : [facility], [address] [place] [address] Hgb 14.7 13.0 - 17.5 g/dL SEJAL [facility] Comment:Testing performed by : [facility], [address] [place] [address] Hct 43.9 38.9 - 50.3 % SEJAL HEARN Comment:Testing performed by : [facility], [address] [place] [address] Plt 210 150 - 400 K/cumm SEJAL [facility]ARN Comment:Testing performed by : [facility], [address] [place] [address] MPV 9.7 6.8 - 10.4 fL CERRAFAELA [facility]ARN Comment:Testing performed by : [facility], [address] [place] [address] RBC 4.66 4.30 - 5.80 M/cumm SEJAL [facility] Comment:Testing performed by : [facility], [address] [place] [address] MCV 94.3 81.3 - 96.4 fL CERRAFAELA BJ Comment:Testing performed by : [facility], [address] [place] [address] MCH 31.6 27.1 - 33.3 pg CERRAFAELA BJ Comment:Testing performed by : [facility], [address] [place] [address] MCHC 33.6 32.3 - 35.7 g/dL CERRAFAELA [facility] Comment:Testing performed by : [facility], [address] [place] [phone] RDW CV 17.7(H) 11.1 - 14.9 % SEJAL [facility] Comment:Testing performed by : [facility], [address] [place] [phone] NRBC abs 0.00 0.00 - 0.01 K/cumm SEJAL [facility] Comment:Testing performed by : [facility], [address] [place] [phone] Blood 01/21/2024 8:59 AM LEAK INSPECTOR 01/21/2024 9:01 AM LEAK INSPECTOR us Kip Del Rio MD LAB BLOOD ORDERABLES Final Result [facility] Department [place] [address] * eGFR (01/21/2024 8:57 AM LEAK INSPECTOR) eGFR >90 >=60 mL/min/1. 73 m2 Comment: [...] last reviewed 2021. Blood 01/21/2024 8:57 AM LEAK INSPECTOR 01/21/2024 9:05 AM LEAK INSPECTOR us Kip Del Rio MD LAB BLOOD ORDERABLES Final Result [facility] Department [place] [address] * (ABNORMAL) Comprehensive metabolic panel (01/21/2024 8:57 AM LEAK INSPECTOR) Sodium 140 135 - 145 mmol/L Potassium, pl 4.7 3.3 - 4.9 mmol/L [facility] Chloride 101 97 - 110 mmol/L [facility] CO2 32 22 - 32 mmol/L [facility] Anion gap 7 2 - 15 mmol/L [facility] BUN 17 6 - 25 mg/dL [facility] Creatinine 0.73(L) 0.80 - 1.30 mg/dL [facility] Glucose 103 70 - 199 mg/dL [facility] Comment: Interpretive Data Fasting glucose >/= [...] Calcium 10.5(H) 8.5 - 10.3 mg/dL [facility] Bilirubin, total 0.4 0.1 - 1.2 mg/dL [facility] Protein, pl 8.5 6.5 - 8.5 g/dL [facility] Albumin 4.6 3.5 - 5.0 g/dL [facility] Alk phos 93 40 - 130 Units/L [facility] ALT 21 7 - 55 Units/L [facility] AST 23 10 - 50 Units/L [facility] Blood 01/21/2024 8:57 AM LEAK INSPECTOR 01/21/2024 9:05 AM LEAK INSPECTOR Kip Del Rio MD LAB BLOOD ORDERABLES Final Result [facility] Department [place] [address] documented in this encounter Visit Diagnoses Diagnosis 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 documented in this encounter Care Teams Wrecking Crane Engine Operator Relationship Specialty Start Date End Date Clara Stanley PA [address] [place] [address] PCP - General Nurse Practitioner 04/05/19 Jasper Canchola MD [address] [place] [address] Surgeon Thoracic Surgery 05/11/19 Alexis Lopez MD [address] [address] Erisa Attorney Pulmonary Disease 05/11/19 Kip Del Rio MD [address] [facility] [address] [place] [address] Medical Oncologist/Mold Unloader Hematology and Oncology 05/11/19 Jacob Flynn MD [address] [facility] [address] [place] [address] Radiation Oncologist Radiation Oncology 05/25/19 Renetta Ballesteros NP [address] [facility] [address] [place] [address] Nurse Practitioner Radiation Oncology 06/11/22 documented as of this encounter
--- OUTSIDE RECORDS SUMMARY | 2024-03-02 04:19 | XMS_ITS | Encounter Summary ---
Author Organization [facility] Address [address] [place] [address] Phone Care Team Providers Care Mmi Teacher Name Role Phone Clara Stanley Primary Care Provider + Jasper Canchola MD Unavailable Alexis Lopez MD Unavailable [phone] Kip Del Rio MD Unavailable Jacob Flynn MD Unavailable [phone] Renetta Ballesteros NP Unavailable Encounter Details Date Type Department Care Team (Late st Contact Info) Description 01/18/2024 Orders Only [facility] Oncology [address] [facility] Floor [address] [place] [address] Cheri Leonard, 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 on file Not on file documented as of this encounter Plan of Treatment Not on file documented as of this encounter Visit Diagnoses Not on filedocumented in this encounter Care Teams Mmi Teacher Relationship Specialty Start Date End Date Clara Stanley PA [address] [place] [address] PCP - General Nurse Practitioner 04/05/19 Jasper Canchola MD [address] [place] [address] Surgeon Thoracic Surgery 05/11/19 Alexis Lopez MD [address] [address] Nurse Researcher Pulmonary Disease 05/11/19 Kip Del Rio MD [address] [place] [address] Medical Oncologist/Residential Door Installer Hematology and Oncology 05/11/19 Jacob Flynn MD [address] [place] [address] Radiation Oncologist Radiation Oncology 05/25/19 Renetta Ballesteros NP [address] [facility] [address] [place] [address] Nurse Practitioner Radiation Oncology 06/11/22 documented as of this encounter
--- OUTSIDE RECORDS SUMMARY | 2024-03-02 04:19 | XMS_ITS | Encounter Summary ---
Author Organization [facility] Healthcare Address [address] [place] [address] Care Team Providers Care Forging Engineer Name Role Phone Clara Stanley Primary Care Provider + Jasper Canchola MD Unavailable Alexis Lopez MD Unavailable [phone] Kip Block MD Unavailable Jacob Flynn MD Unavailable Renetta Ballesteros NP Unavailable Reason for Referral * Oncology (Routine) - Authorized Specialty Diagnoses / Procedures Referred By Contac t Referred To Contact Oncology Diagnoses Primary cancer of right lower lobe of lung (HCC) Jacob Flynn MD [address] [facility] [address] [place] [address] Phone: tel: fax: Kip Block MD [address] [facility] [address] [place] [address] Phone: tel: fax: Referral ID Status Reason Start Date Expiration Date Visits Requested Visits Authorized [id number] Authorized Specialty Services Required 09/25/2023 03/15/2024 99 99 Question Answer Please select the performing region: [facility] (All Locations) [[id number]] Please select the performing department: [facility] 7 [[id number]] Is this referral for Breast [facility]? No Does the patient have a diagnosis of a Head and Neck cancer? No To provider: KIP BLOCK [[id number]] # of visits: 1 Encounter Details Date Type Department Care Team (Late st Contact Info) Description 09/25/2023 Orders Only 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 OFFAL WORKER Gender Identity Not on file Sexual [...] Primary documented in this encounter Care Teams Forging Engineer Relationship Specialty Start Date End Date Clara Stanley PA [address] [place] [address] PCP - General Nurse Practitioner 04/05/19 Jasper Canchola MD [address] [place] [address] Surgeon Thoracic Surgery 05/11/19 Alexis Lopez MD [address] [address] Steward/Stewardess Third Pulmonary Disease 05/11/19 Kip Block MD [email or web address] [place] [address] Medical Oncologist/Nuisance Wildlife Specialist Hematology and Oncology 05/11/19 Jacob Flynn MD [email or web address] [place] [address] Radiation Oncologist Radiation Oncology 05/25/19 Renetta Ballesteros NP [address] [place] [address] Nurse Practitioner Radiation Oncology 06/11/22 documented as of this encounter
--- OUTSIDE RECORDS SUMMARY | 2024-03-02 04:19 | XMS_ITS | Encounter Summary ---
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) Procedures CT Chest Abdomen Pelvis W Contrast Kip Del Rio MD [address] [facility] [address] [place] [address] Phone: tel: fax: [address] [phone] Referral ID Status Reason Start Date Expiration Date Visits Re quested Visits Authorized [id number] Closed 11/11/2023 12/10/2024 1 1 Reason for Visit * Diagnostic Imaging (Routine) - Closed Specialty Diagnoses / Procedures Referred By Contac t Referred To Contact Radiology Diagnoses 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) Procedures CT Chest Abdomen Pelvis W Contrast Kip Del Rio MD [address] [facility] [address] [place] [address] Phone: tel: fax: [address] [phone] Referral ID Status Reason Start Date Expiration Date Visits Re quested Visits Authorized [id number] Closed 11/11/2023 12/10/2024 1 1 Encounter Details Date Type Department Care Team (Latest Contact Info) Description 12/22/2023 11:05 AM CDT - 12/22/2023 11:59 PM CDT Hospital Encounter [facility] [address] [facility] Floor 8 [place] [address] Secondary malignant neoplasm of mediastinal lymph node [...] file 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 Gender Identity Not on file Sexual Orientation [...] - DEVICE Final Result [facility] Department [place] [address] documented in this encounter Visit Diagnoses Diagnosis [...] 10/2023 documented in this encounter Care Teams Injection Specialist Relationship Specialty Start Date End Date Clara Stanley PA [address] [place] [address] PCP - General Nurse Practitioner 04/05/19 Jasper Canchola MD [address] [place] [address] Surgeon Thoracic Surgery 05/11/19 Alexis Lopez MD [address] [address] Veneer Patcher Pulmonary Disease 05/11/19 Kip Del Rio MD [address] [facility] [address] [place] [address] Medical Oncologist/Court Abstractor Hematology and Oncology 05/11/19 Jacob Flynn MD [address] [facility] [address] [place] [address] Radiation Oncologist Radiation Oncology 05/25/19 Renetta Ballesteros NP [address] [facility] [address] [place] [address] Nurse Practitioner Radiation Oncology 06/11/22 documented as of this encounter
--- OUTSIDE RECORDS SUMMARY | 2024-03-02 04:19 | XMS_ITS | Encounter Summary ---
Author Organization [facility] Address [address] [place] [address] Care Team Providers Care Director Cardiac Name Role Phone lCara Stanley Primary Care Provider + Jasper Canchola MD Unavailable Alexis Lopez MD Unavailable Kip Del Rio MD Unavailable Jacob Flynn MD Unavailable [phone] Renetta Ballesteros NP Unavailable Encounter Details Date Type Department Care Team (Late st Contact Info) Description 11/12/2023 3:00 PM CDT Lab [facility] at [facility] [address] [facility] Advanced Medicine 7th [place] [address] Primary cancer of right lower lobe of [...] file 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 Testing performed by: [facility], [address] [place] [phone] Blood 11/12/2023 2:53 PM CDT 11/12/2023 2:59 PM CDT us Kip Del Rio MD LAB BLOOD ORDERABLES Final Result Performing Organization Address City/State/[facility] Co de Phone Number SEJAL HEARN [facility] Department [place] [address] * (ABNORMAL) Differential, auto (11/12/2023 2:53 PM CDT) Neutrophil abs 7.1(H) 1.5 - 6.5 K/cumm Comment:Testing performed by : [facility], [address] [place] [phone] Lymphocyte abs 1.1 0.8 - 3.3 K/cumm SEJAL HEARN Comment:Testing performed by : [facility], [address] [place] [phone] Monocyte abs 1.1(H) 0.2 - 0.8 K/cumm SEJAL HEARN Comment:Testing performed by : [facility], [address] [place] [phone] Eosinophil abs 0.4 0.0 - 0.5 K/cumm CERNER BJ Comment:Testing performed by : [facility], [address] [place] [phone] Basophil abs 0.1 0.0 - 0.1 K/cumm CERNER BJ Comment:Testing performed by : [facility], [address] [place] [phone] Neutrophil pct 73.1 % CERNER BJ Comment: Interpretive Data Percent cell count reference ranges are not reported, since discordance with absolute values may lead to misinterpretation of CBC data. Current Interpretive Data was last revised on 2017. Testing performed by: [facility], [address] [place] [phone] Lymphocyte pct 11.0 % CERNER BJ Comment: Interpretive Data Percent cell count reference ranges are not reported, since discordance with absolute values may lead to misinterpretation of CBC data. Current Interpretive Data was last revised on 2017. Testing performed by: [facility], [address] [place] [phone] Monocyte pct 11.2 % CERNER BJ Comment:Testing performed by : [facility], [address] [place] [phone] Eosinophil pct 4.0 % CERNER BJ Comment:Testing performed by : [facility], [address] [place] [phone] Basophil pct 0.7 % CERNER BJ Comment:Testing performed by : [facility], [address] [place] [phone] Blood 11/12/2023 2:5 3 PM CDT 11/12/2023 2:59 PM CDT us Kip eDl Rio MD LAB BLOOD ORDERABLES Final Result SEJAL HEARN [facility] Department [place] [address] * (ABNORMAL) CBC with auto differential (11/12/2023 2:53 PM CDT) WBC 9.7 3.8 - 9.8 K/cumm Comment:Testing performed by : [facility], [address] [place] [address] Hgb 13.2(L) 13.8 - 17.2 g/dL CERNER BJ Comment:Testing performed by : [place] [address] Hct 38.7(L) 40.7 - 50.3 % CERNER BJ Comment:Testing performed by : [facility], [address] [place] [address] Plt 228 140 - 440 K/cumm CERNER BJ Comment:Testing performed by : [place] [address] MPV 10.0 6.8 - 10.4 fL CERNER BJ Comment:Testing performed by : [place] [address] RBC 4.33(L) 4.50 - 5.70 M/cumm CERNER BJ Comment:Testing performed by : [place] [address] MCV 89.3 80.0 - 97.6 fL CERNER BJ Comment:Testing performed by : [place] [address] MCH 30.5 26.7 - 33.7 pg CERNER BJ Comment:Testing performed by : [place] [address] MCHC 34.2 32.7 - 35.5 g/dL CERNER BJ Comment:Testing performed by : [place] [address] RDW CV 14.4 11.8 - 14.6 % CERNER BJ Comment:Testing performed by : [place] [address] NRBC abs 0.00 0.00 - 0.01 K/cumm CERNER BJ Comment:Testing performed by : [place] [address] Blood 11/12/2023 2:53 PM CDT 11/12/2023 2:59 PM CDT Kip Del Rio MD LAB BLOOD ORDERABLES Final Result [facility] Department [place] [address] * (ABNORMAL) Comprehensive metabolic panel (11/12/2023 2:53 PM CDT) Sodium 137 135 - 145 mmol/L Comment:Testing performed by : [facility], [address] [place] [phone] Potassium, pl 3.9 3.3 - 4.9 mmol/L SEJAL HEARN Comment:Testing performed by : [facility], [address] [place] [phone] Chloride 100 97 - 110 mmol/L SEJAL HEARN Comment:Testing performed by : [facility], [address] [place] [phone] CO2 30 22 - 32 mmol/L SEJAL HEARN Comment:Testing performed by : [facility], [address] [place] [phone] Anion gap 7 2 - 15 mmol/L SEJAL HEARN Comment:Testing performed by : [facility], [address] [place] [phone] BUN 12 6 - 25 mg/dL SEJAL HEARN Comment:Testing performed by : [facility], [address] [place] [phone] Creatinine 0.58(L) 0.80 - 1.30 mg/dL SEJAL HEARN Comment:Testing performed by : [facility], [address] [place] [phone] Glucose 98 70 - 199 mg/dL SEJAL [...] last revised 2022. Testing performed by: [facility], [address] [place] [phone] Calcium 9.9 8.5 - 10.3 mg/dL CERNER [facility] Comment:Testing performed by : [facility], [address] [place] [phone] Bilirubin, total 0.4 0.1 - 1.2 mg/dL CERNER BJ Comment:Testing performed by : [facility], [address] [place] [phone] Protein, pl 7.7 6.5 - 8.5 g/dL CERNER BJ Comment:Testing performed by : [facility], [address] [place] [phone] Albumin 4.4 3.5 - 5.0 g/dL CERNER BJ Comment:Testing performed by : [facility], [address] [place] [phone] Alk phos 87 40 - 130 Units/L CERNER BJ Comment:Testing performed by : [address] [phone] ALT 35 7 - 55 Units/L CERNER BJ Comment:Testing performed by : [facility], [address] [place] [phone] AST 36 10 - 50 Units/L CERNER BJ Comment:Testing performed by : [facility], [address] [place] [phone] Blood 11/12/2023 2:53 PM CDT 11/12/2023 2:59 PM CDT us Kip Del Rio MD LAB BLOOD ORDERABLES Final Result [facility] Department [place] [address] documented in this encounter Visit Diagnoses Diagnosis Primary cancer of right lower lobe of lung (HCC) Malignant neoplasm of lower lobe of right lung (HCC) Neuroendocrine carcinoma of lung (HCC) documented in this encounter Care Teams Director Cardiac Relationship Specialty Start Date End Date Clara Stanley PA [address] [place] [address] PCP - General Nurse Practitioner 04/05/19 Jasper Canchola MD [address] [place] [address] Surgeon Thoracic Surgery 05/11/19 Alexis Lopez MD [address] [address] Animal Control Supervisor Pulmonary Disease 05/11/19 Kip Del Rio MD [address] [place] [address] Medical Oncologist/Marketing Representative Hematology and Oncology 05/11/19 Jacob Flynn MD [address] [place] [address] Radiation Oncologist Radiation Oncology 05/25/19 Renetta Ballesteros NP [address] [place] [address] Nurse Practitioner Radiation Oncology 06/11/22 documented as of this encounter
--- OUTSIDE RECORDS SUMMARY | 2024-03-02 04:19 | XMS_ITS | Encounter Summary ---
Author Organization [facility] Healthcare Address [address] [place] [address] Care Team Providers Care Steeplechase Jockey Name Role Phone Clara Stanley Primary Care Provider + Jasper Canchola MD Unavailable Alexis Lopez MD Unavailable Kip Del Rio MD Unavailable Jacob Flynn MD Unavailable [phone] Renetta Ballesteros NP Unavailable [phone] Reason for Visit * Reason Comments Follow-up Encounter Details Date Type Department Care Team (Late st Contact Info) Description 08/26/2023 3:00 PM CDT Office Visit [facility] Pulmonology [address] [facility] [address] [place] [address] Tita Encarnacion NP [address] [place] [address] [address] [place] [address] Lung nodule (Primary Dx); LEONOR (obstructive sleep [...] on file 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 The patient continues to follow with [facility]. The patient states he has difficulty wearing his CPAP. His CPAP is set at 5-20 cm of water pressure while sleeping. The patient's compliance report shows an average use of 4 hours and 6 minutes per night on 30% nights, hisAHI is 1.7 times per hour sleep. The patient did see the brake lining driller that state he can not determine a [...] sprays into each nostrildaily 16 g 6 uyflxwhytgc-xatcbxdeb-leavamxq (Trelegy Ellipta) 100-62.5-25 mcg inhaler Inhale 1 [...] Plan: He is being followed at the [facility] with serial chest CTs LEONOR (obstructive sleep [...] & Plan: The patient did see the brake lining driller but he did not reveal a reason [...] Cough, persistent The patient did see the brake lining driller but he did not reveal a reason for the cough. The patient states he coughs if he does drink milk or eats ice cream or, exerts himself. * Assessment & Plan Note - Tita Encarnacion NP - 08/26/2023 3:23 PM CDT Associated Problem(s): Lung nodule (Deleted) He is being followed at the [facility] with serial chest CTs * Addendum Note [...] documented as of this encounter Care Teams Steeplechase Jockey Relationship Specialty Start Date End Date Clara Stanley PA [address] [place] [address] PCP - General Nurse Practitioner 04/05/19 Jasper Canchola MD [address] [place] [address] Surgeon Thoracic Surgery 05/11/19 Alexis Lopez MD [address] [address] Cassandra Consultant Pulmonary Disease 05/11/19 Kip Del Rio MD [address] [facility] [address] [place] [address] Medical Oncologist/Audience Coordinator Hematology and Oncology 05/11/19 Jacob Flynn MD [address] [facility] [address] [place] [address] Radiation Oncologist Radiation Oncology 05/25/19 Renetta Ballesteros NP [address] [facility] [address] [place] [address] Nurse Practitioner Radiation Oncology 06/11/22 documented as of this encounter
--- OUTSIDE RECORDS SUMMARY | 2024-03-02 04:19 | XMS_ITS | Encounter Summary ---
Author Organization [facility] Address [address] [place] [address] Care Team Providers Care School Fundraising Director Name Role Phone Clara Stanley Primary Care Provider + Jasper Canchola MD Unavailable lAexis Lopez MD Unavailable Kip Del Rio MD Unavailable Jacob Flynn MD Unavailable Renetta Ballesteros NP Unavailable [phone] Reason for Referral * MRI/CAT/PET Scan (Routine) - Closed Specialty Diagnoses / Procedures Referred By Contrebekah t Referred To Contact Radiology Diagnoses Primary cancer of right lower lobe of lung (HCC) Radiotherapy follow-up examination Procedures MRI Abdomen Liver W WO Contrast Renetta Ballesteros NP [address] [facility] [address] [place] [address] Phone: tel: fax: [address] [phone] Referral ID Status Reason Start Date Expiration Date Visits Re quested Visits Authorized [id number] Closed 09/23/2023 10/22/2024 1 1 Reason for Visit * Reason Comments Follow-up Prior CT Encounter Details Date Type Department Care Team ([facility] Contact Info) Description 09/23/2023 10:00 AM CDT Office Visit [facility] Advanced Medicine Radiation Oncology [address] [facility] [place] [address] Renetta Ballesteros NP [address] [facility] [address] [place] [address] Primary cancer of right lower lobe of [...] on file 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 Renetta Ballesteros MACHINE PRINTER IMG MRI PROCEDURES Final Result documented in [...] 12/24/2023 added in this encounter Care Teams School Fundraising Director Relationship Specialty Start Date End Date Clara Stanley PA [address] [place] [address] PCP - General Nurse Practitioner 04/05/19 Jasper Canchola MD [facility] [place] [address] Surgeon Thoracic Surgery 05/11/19 Alexis Lopez MD [address] [facility] [facility] [place] [address] Teacher Preschool Pulmonary Disease 05/11/19 Kip Del Rio MD [address] [facility] [address] [place] [address] Medical Oncologist/Lease Administration Supervisor Hematology and Oncology 05/11/19 Jacob Flynn MD [address] [facility] [address] [place] [address] Radiation Oncologist Radiation Oncology 05/25/19 Renetta Ballesteros NP [address] [facility] [address] [place] [address] Nurse Practitioner Radiation Oncology 06/11/22 documented as of this encounter
--- OUTSIDE RECORDS SUMMARY | 2024-03-02 04:19 | XMS_ITS | Encounter Summary ---
Author Organization [facility] Address [address] [place] [address] Phone Care Team Providers Care Hotshot Superintendent Name Role Phone Clara Stanley Primary Care Provider + Jasper Canchola MD Unavailable Alexis Lopez MD Unavailable Kip Del Rio MD Unavailable Jacob Flynn MD Unavailable Renetta Ballesteros NP Unavailable Encounter Details Date Type Department Care Team (Late st Contact Info) Description 10/21/2023 Orders Only [facility] Oncology [address] [facility] Advanced Medicine 7th [place] [address] [place] [address] Kip Del Rio MD [address] [facility] [address] [place] [address] Neuroendocrine carcinoma of lung (HCC) (Primary Dx); [...] 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 Gender Identity Not on file Sexual Orientation Straight 09/22/2019 8 :21 PM CDT Occupation Industry Job Start Date [...] - 145 mmol/L Comment:Testing performed by : [facility], [address] [place] [phone] Potassium, pl 4.3 3.3 - 4.9 mmol/L CERNER BJ Comment:Testing performed by : [facility], [address] [place] [phone] Chloride 100 97 - 110 mmol/L CERNER BJ Comment:Testing performed by : [facility], [address] [place] [phone] CO2 29 22 - 32 mmol/L CERNER BJ Comment:Testing performed by : [facility], [address] [place] [phone] Anion gap 8 2 - 15 mmol/L CERNER BJ Comment:Testing performed by : [facility], [address] [place] [phone] BUN 20 6 - 25 mg/dL CERNER BJ Comment:Testing performed by : [facility], [address] [place] [phone] Creatinine 0.78(L) 0.80 - 1.30 mg/dL CERNER BJ Comment:Testing performed by : [facility], [address] [place] [phone] Glucose 96 70 - 199 mg/dL CERNER [...] was last revised 2022. Testing performed by: [facility], [address] [place] [phone] Calcium 10.0 8.5 - 10.3 mg/dL CERNER BJ Comment:Testing performed by : [facility], [address] [place] [phone] Bilirubin, total 0.4 0.1 - 1.2 mg/dL CERNER BJ Comment:Testing performed by : [facility], [address] [place] [phone] Protein, pl 8.3 6.5 - 8.5 g/dL CERRAFAELA HEARN Comment:Testing performed by : [facility], [address] [place] [phone] Albumin 4.6 3.5 - 5.0 g/dL CERRAFAELA HEARN Comment:Testing performed by : [facility], [address] [place] [phone] Alk phos 99 40 - 130 Units/L SEJAL HEARN Comment:Testing performed by : [facility], [address] [place] [phone] ALT 23 7 - 55 Units/L SEJAL HEARN Comment:Testing performed by : [facility], [address] [place] [phone] AST 26 10 - 50 Units/L SEJAL [facility] Comment:Testing performed by : [facility], [address] [place] [phone] Blood 10/22/2023 2:20 PM CDT 10/22/2023 2:23 PM CDT us Kip Del Rio MD LAB BLOOD ORDERABLES Final Result [facility] [place] [address] * (ABNORMAL) CBC with auto differential (10/22/2023 2:20 PM CDT) WBC 12.0(H) 3.8 - 9.8 K/cumm Comment:Testing performed by : [facility], [address] [place] [phone] Hgb 13.7(L) 13.8 - 17.2 g/dL SEJAL HEARN Comment:Testing performed by : [address] [phone] Hct 41.7 40.7 - 50.3 % SEJAL HEARN Comment:Testing performed by : [address] [phone] Plt 246 140 - 440 K/cumm SEJAL HEARN Comment:Testing performed by : [facility], [address] [place] [phone] MPV 9.9 6.8 - 10.[address] [facility] Comment:Testing performed by : [facility], [address] [place], [place] [phone] RBC 4.67 4.50 - 5.70 M/cumm CERRAFAELA BJ Comment:Testing performed by : [place] [phone] MCV 89.3 80.0 - 97.[address] [facility] Comment:Testing performed by : [facility], [address] [place] [phone] MCH 29.3 26.7 - 33.[address] [facility] Comment:Testing performed by : [address] [phone] MCHC 32.7 32.7 - 35.5 g/dL SEJAL [facility] Comment:Testing performed by : [address] [phone] RDW CV 13.9 11.8 - 14.6 % SEJAL [facility] Comment:Testing performed by : [facility], [address] [place] [phone] NRBC abs 0.00 0.00 - 0.01 K/cumm SEJAL [facility] Comment:Testing performed by : [facility], [address] [place] [phone] Blood 10/22/2023 2:20 PM CDT 10/22/2023 2:23 PM CDT us Kip Del Rio MD LAB BLOOD ORDERABLES Final Result [facility] Department of Laboratories [place], [place] [id number] documented in this encounter Visit Diagnoses Diagnosis Neuroendocrine carcinoma of lung (HCC)- Primary Malignant neoplasm of lower lobe of right lung (HCC) documented in this encounter Care Teams Hotshot Superintendent Relationship Specialty Start Date End Date Clara Stanley PA [address] [place] [address] PCP - General Nurse Practitioner 04/05/19 Jasper Canchola MD [address] [place] [id number] Surgeon Thoracic Surgery 05/11/19 Alexis Lopez MD [address] [address] Rescue Instructor Pulmonary Disease 05/11/19 Kip Del Rio MD [address] [place] [address] Medical Oncologist/Mechanical Designer Hematology and Oncology 05/11/19 Jacob Flynn MD [address] [place], [place] [id number] Radiation Oncologist Radiation Oncology 05/25/19 Renetta Ballesteros NP [address] [place] [address] Nurse Practitioner Radiation Oncology 06/11/22 documented as of this encounter
--- OUTSIDE RECORDS SUMMARY | 2024-03-02 04:19 | XMS_ITS | Encounter Summary ---
Author Organization [facility] Address [address] [place] [address] Phone Care Team Providers Care Manager Of Loss Prevention Operations Name Role Phone Clara Stanely Primary Care Provider + Jasper Canchola MD Unavailable Alexis Lopez MD Unavailable Kip Del Rio MD Unavailable [phone] Jacob Flynn MD Unavailable Renetta Ballesteros NP Unavailable Encounter Details Date Type Department Care Team (Late st Contact Info) Description 12/03/2023 Orders Only 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 on file Not on file documented as of this encounter Plan of Treatment Not on file documented as of this encounter Visit Diagnoses Not on filedocumented in this encounter Care Teams Manager Of Loss Prevention Operations Relationship Specialty Start Date End Date Clara Stanley PA [address] [place] [address] PCP - General Nurse Practitioner 04/05/19 Jasper Canchola MD [address] [place] [address] Surgeon Thoracic Surgery 05/11/19 Alexis Lopez MD [address] [address] Forensic Computer Examiner Pulmonary Disease 05/11/19 Kip Del Rio MD [address] [place] [address] Medical Oncologist/Teacher Learning Disabled Hematology and Oncology 05/11/19 Jacob Flynn MD [address] [place] [address] Radiation Oncologist Radiation Oncology 05/25/19 Renetta Ballesteros NP [address] [place] [address] Nurse Practitioner Radiation Oncology 06/11/22 documented as of this encounter
--- OUTSIDE RECORDS SUMMARY | 2024-03-02 04:19 | XMS_ITS | Encounter Summary ---
Author Organization [facility] Address [address] [place] [address] Phone Care Team Providers Care Sweeping Compound Blender Name Role Phone Clara Stanley Primary Care Provider + Jasper Canchola MD Unavailable Alexis Lpoez MD Unavailable [phone] Kip Del Rio MD Unavailable Jacob Flynn MD Unavailable Renetta Ballesteros NP Unavailable [phone] Reason for Visit * Oncology (Routine) - Authorized Specialty Diagnoses / Procedures Referred By Contac t Referred To Contact Oncology Diagnoses Primary cancer of right lower lobe of lung (HCC) Jacob Flynn MD [address] [facility] [address] LL [address] [place] [address] Phone: tel: fax: Kip Del Rio MD 49[address] [facility] [address] [place] [address] Phone: tel: fax: Referral ID Status Reason Start Date Expiration Date Visits Requested Visits Authorized [id number] Authorized Specialty Services Required 09/25/2023 03/15/2024 99 99 Encounter Details Date Type Department Care Team (Late st Contact Info) Description 12/24/2023 1:20 PM CDT Office Visit [facility] Oncology [address] [facility] Floor 5 [place] [address] Kip Del Rio MD [address] [facility] [address] [place] [address] Secondary malignant neoplasm of mediastinal lymph node [...] on file Legal 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 Genomics: Cell-free DNA through [id number] 10/01/2023: FGFR2 N235K (0.2%), ARTIS [id number] (0.2%). MSI-High Not Detected. Treatment: Right lower [...] Units total) by mouth, Disp: , Rfl: aogsrvsfblh-pzeamioam-ubyqecmp (Trelegy Ellipta) 100-62.5-25 mcg inhaler, Inhale 1 [...] Kip Del Rio M.D. Division of Oncology [facility] documented in this encounter Plan of Treatment Not on file documented as of this encounter Results * (ABNORMAL) CBC with auto differential (01/21/2024 8:59 AM I&C TECHNICIAN) WBC 8.6 3.8 - 9.9 K/cumm Comment:Testing performed by : [facility], [address] [place] [address] Hgb 14.7 13.0 - 17.5 g/dL SEJAL BJ Comment:Testing performed by : [facility], [address] [place] [address] Hct 43.9 38.9 - 50.3 % CERRAFAELA BJ Comment:Testing performed by : [facility], [address] [place] [address] Plt 210 150 - 400 K/cumm CERRAFAELA BJ Comment:Testing performed by : [facility], [address] [place] [address] MPV 9.7 6.8 - 10.4 fL CERRAFAELA BJ Comment:Testing performed by : [facility], [address] [place] [address] RBC 4.66 4.30 - 5.80 M/cumm CERRAFAELA BJ Comment:Testing performed by : [facility], [address] [place], [place] [id number] MCV 94.3 81.3 - 96.4 fL SEJAL HEARN Comment:Testing performed by : [facility], [address] [place], [place] [id number] MCH 31.6 27.1 - 33.3 pg SEJAL HEARN Comment:Testing performed by : [facility], [address] [place], [place] [id number] MCHC 33.6 32.3 - 35.7 g/dL SEJAL HEARN Comment:Testing performed by : [facility], [address] [place], [place] [id number] RDW CV 17.7(H) 11.1 - 14.9 % SEJAL HEARN Comment:Testing performed by : [facility], [address] [place], [place] [id number] NRBC abs 0.00 0.00 - 0.01 K/cumm SEJAL HEARN Comment:Testing performed by : [facility], [address] [place], [place] [id number] Blood 01/21/2024 8:59 AM I&C TECHNICIAN 01/21/2024 9:01 AM I&C TECHNICIAN us Kip Del Rio MD LAB BLOOD ORDERABLES Final Result [facility] [place] [address] * (ABNORMAL) Comprehensive metabolic panel (01/21/2024 8:57 AM I&C TECHNICIAN) Sodium 140 135 - 145 mmol/L Potassium, pl 4.7 3.3 - 4.9 mmol/L [facility] Chloride 101 97 - 110 mmol/L [facility] CO2 32 22 - 32 mmol/L [facility] Anion gap 7 2 - 15 mmol/L [facility] BUN 17 6 - 25 mg/dL [facility] Creatinine 0.73(L) 0.80 - 1.30 mg/dL [facility] Glucose 103 70 - 199 mg/dL [facility] Comment: Interpretive Data Fasting glucose >/= [...] 2022. Calcium 10.5(H) 8.5 - 10.3 mg/dL [facility] Bilirubin, total 0.4 0.1 - 1.2 mg/dL [facility] Protein, pl 8.5 6.5 - 8.5 g/dL [facility] Albumin 4.6 3.5 - 5.0 g/dL [facility] Alk phos 93 40 - 130 Units/L [facility] ALT 21 7 - 55 Units/L [facility] AST 23 10 - 50 Units/L [facility] Blood 01/21/2024 8:57 AM I&C TECHNICIAN 01/21/2024 9:05 AM I&C TECHNICIAN Kip Del Rio MD LAB BLOOD ORDERABLES Final Result [facility] Department [place] [address] documented in this encounter Visit Diagnoses Diagnosis [...] 12/24/2023 documented in this encounter Care Teams Sweeping Compound Blender Relationship Specialty Start Date End Date Clara Stanley PA [address] [place] [address] PCP - General Nurse Practitioner 04/05/19 Jasper Canchola MD [address] [place] [address] Surgeon Thoracic Surgery 05/11/19 Alexis Lopez MD [address] [address] Human Development Professor Pulmonary Disease 05/11/19 Kip Del Rio MD [address] [place] [address] Medical Oncologist/Sand Hauler Hematology and Oncology 05/11/19 Jacob Flynn MD [address] [place] [address] Radiation Oncologist Radiation Oncology 05/25/19 Renetta Ballesteros NP [address] [place] [address] Nurse Practitioner Radiation Oncology 06/11/22 documented as of this encounter
--- OUTSIDE RECORDS SUMMARY | 2024-03-02 04:19 | XMS_ITS | Encounter Summary ---
Author Organization [facility] Address [address] [place] [address] Care Team Providers Care Emergency Planner Name Role Phone Clara Stanley Primary Care Provider + Jasper Canchola MD Unavailable Alexis Lopez MD Unavailable Kip Del Rio MD Unavailable Jacob Flynn MD Unavailable Renetta Ballesteros NP Unavailable [phone] Reason for Referral * MRI/CAT/PET Scan (Routine) - Closed Specialty Diagnoses / Procedures Referred By Contac t Referred To Contact Radiology Diagnoses Primary cancer of right lower lobe of lung (HCC) Right lower lobe pulmonary nodule Radiotherapy follow-up examination 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 [address] [place] [address] Phone: tel: fax: [address] [phone] Referral ID Status Reason Start Date Expiration Date Visits Re quested Visits Authorized [id number] Closed 06/23/2023 07/22/2024 1 1 Reason for Visit * Reason Comments Follow-up Prior CT Encounter Details Date Type Department Care Team (Late st Contact Info) Description 06/23/2023 11:00 AM CDT Office Visit [facility] Advanced Medicine Radiation Oncology [address] [facility] Advanced Medicine [place] [address] Renetta Ballesteros NP [address] 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 Renetta Ballesteros NP [facility] CT PROCEDURES Final Result documented in this [...] nodes documented in this encounter Care Teams Emergency Planner Relationship Specialty Start Date End Date Clara Stanley PA [address] [place] [address] PCP - General Nurse Practitioner 04/05/19 Jasper Canchola MD [address] [place] [address] Surgeon Thoracic Surgery 05/11/19 Alexis Lopez MD [address] [address] Safety Investigator/Cause Analyst Pulmonary Disease 05/11/19 Kip Del Rio MD [address] [place] [address] Medical Oncologist/Powder Guard Hematology and Oncology 05/11/19 Jacob Flynn MD [address] [place] [address] Radiation Oncologist Radiation Oncology 05/25/19 Renetta Ballesteros NP [address] [place] [address] Nurse Practitioner Radiation Oncology 06/11/22 documented as of this encounter
--- OUTSIDE RECORDS SUMMARY | 2024-03-02 04:19 | XMS_ITS | Encounter Summary ---
Author Organization [facility] Address [address] [place] [address] Care Team Providers Care Night Baker Name Role Phone Clara Stanley Primary Care Provider + Jasper Canchola MD Unavailable Alxeis Lopez MD Unavailable Kip Del Rio MD Unavailable Jacob Flynn MD Unavailable Renetta Ballesteros NP Unavailable Encounter Details Date Type Department Care Team (Late st Contact Info) Description 10/22/2023 2:15 PM CDT Lab [facility] [address] [facility] Advanced Medicine 7th [place] [address] Neuroendocrine carcinoma of lung (HCC); Malignant neoplasm [...] on file 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 Testing performed by: [facility], [address] [place] [phone] Blood 10/22/2023 2:20 PM CDT 10/22/2023 2:23 PM CDT Kip Del Rio MD LAB BLOOD ORDERABLES Final Result [facility] One [facility] [place] [address] * (ABNORMAL) Differential, auto (10/22/2023 2:20 PM CDT) Neutrophil abs 8.8(H) 1.5 - 6.6 K/cumm Comment:Testing performed by : [facility], [address] [place] [phone] Lymphocyte abs 1.7 1.2 - 3.3 K/cumm SEJAL [facility] Comment:Testing performed by : [facility], [address] [place] [phone] Monocyte abs 1.2 0.2 - 1.2 K/cumm SEJAL [facility] Comment:Testing performed by : [facility], [address] [place] [phone] Eosinophil abs 0.3 0.0 - 0.5 K/cumm SEJAL [facility] Comment:Testing performed by : [facility], [address] [place] [phone] Basophil abs 0.1 0.0 - 0.2 K/cumm CERRAFAELA BJ Comment:Testing performed by : [facility], [address] [place] [phone] Neutrophil pct 72.9 % CERNER BJ Comment: Interpretive Data Percent cell count reference ranges are not reported, since discordance with absolute values may lead to misinterpretation of CBC data. Current Interpretive Data was last revised on 2017. Testing performed by: [facility], [address] [place] [phone] Lymphocyte pct 14.5 % CERRAFAELA BJ Comment: Interpretive Data Percent cell count reference ranges are not reported, since discordance with absolute values may lead to misinterpretation of CBC data. Current Interpretive Data was last revised on 2017. Testing performed by: [facility], [address] [place] [phone] Monocyte pct 9.9 % CERRAFAELA [facility] Comment:Testing performed by : [facility], [address] [place] [phone] Eosinophil pct 2.1 % CERRAFAELA [facility] Comment:Testing performed by : [facility], [address] [place] [phone] Basophil pct 0.6 % CERRAFAELA [facility] Comment:Testing performed by : [facility], [address] [place] [phone] Blood 10/22/2023 2:20 PM CDT 10/22/2023 2:23 PM CDT us Kip Del Rio MD LAB BLOOD ORDERABLES Final Result SEJAL [facility] Department [place] [address] * (ABNORMAL) CBC with auto differential (10/22/2023 2:20 PM CDT) WBC 12.0(H) 3.8 - 9.8 K/cumm Comment:Testing performed by : [address] [phone] Hgb 13.7(L) 13.8 - 17.2 g/dL CERNER BJ Comment:Testing performed by : [facility], [address] [place], [place] [phone] Hct 41.7 40.7 - 50.3 % CERNER BJ Comment:Testing performed by : [facility], [address] [place] [address] Plt 246 140 - 440 K/cumm CERRAFAELA BJ Comment:Testing performed by : [facility], [address] [place], [place] [phone] MPV 9.9 6.8 - 10.4 fL CERNER BJ Comment:Testing performed by : [place] [address] RBC 4.67 4.50 - 5.70 M/cumm CERRAFAELA BJ Comment:Testing performed by : [place] [address] MCV 89.3 80.0 - 97.6 fL CERRAFAELA BJ Comment:Testing performed by : [facility], [address] [place], [place] [phone] MCH 29.3 26.7 - 33.7 pg CERNER BJ Comment:Testing performed by : [place] [address] MCHC 32.7 32.7 - 35.5 g/dL CERNER BJ Comment:Testing performed by : [place] [phone] RDW CV 13.9 11.8 - 14.6 % CERRAFEALA BJ Comment:Testing performed by : [place] [phone] NRBC abs 0.00 0.00 - 0.01 K/cumm CERRAFAELA BJ Comment:Testing performed by : [place] [address] Blood 10/22/2023 2:20 PM CDT 10/22/2023 2:23 PM CDT us Kip Del Rio MD LAB BLOOD ORDERABLES Final Result [facility] [place] [address] * (ABNORMAL) Comprehensive metabolic panel (10/22/2023 2:20 PM CDT) Sodium 137 135 - 145 mmol/L Comment:Testing performed by : [facility], [address] [place] [phone] Potassium, pl 4.3 3.3 - 4.9 mmol/L SEJAL HEARN Comment:Testing performed by : [facility], [address] [place] [phone] Chloride 100 97 - 110 mmol/L CERRAFAELA HEARN Comment:Testing performed by : [facility], [address] [place] [phone] CO2 29 22 - 32 mmol/L CERRAFAELA HEARN Comment:Testing performed by : [facility], [address] [place] [phone] Anion gap 8 2 - 15 mmol/L SEJAL HEARN Comment:Testing performed by : [facility], [address] [place] [phone] BUN 20 6 - 25 mg/dL CERRAFAELA [facility] Comment:Testing performed by : [facility], [address] [place] [phone] Creatinine 0.78(L) 0.80 - 1.30 mg/dL SEJAL [facility] Comment:Testing performed by : [facility], [address] [place] [phone] Glucose 96 70 - 199 mg/dL SEJAL [facility] Comment: Interpretive Data Fasting glucose [...] was last revised 2022. Testing performed by: [facility], [address] [place] [phone] Calcium 10.0 8.5 - 10.3 mg/dL CERNER [facility] Comment:Testing performed by : [facility], [address] [place] [phone] Bilirubin, total 0.4 0.1 - 1.2 mg/dL CERNER BJ Comment:Testing performed by : [facility], [address] [place] [phone] Protein, pl 8.3 6.5 - 8.5 g/dL CERNER BJ Comment:Testing performed by : [facility], [address] [place] [phone] Albumin 4.6 3.5 - 5.0 g/dL CERNER BJ Comment:Testing performed by : [facility], [address] [place] [phone] Alk phos 99 40 - 130 Units/L CERNER [facility] Comment:Testing performed by : [facility], [address] [place] [phone] ALT 23 7 - 55 Units/L CERNER [facility] Comment:Testing performed by : [facility], [address] [place] [phone] AST 26 10 - 50 Units/L CERNER [facility] Comment:Testing performed by : [facility], [address] [place] [phone] Blood 10/22/2023 2:20 PM CDT 10/22/2023 2:23 PM CDT Kip Del Rio MD LAB BLOOD ORDERABLES Final Result [facility] [place] [address] documented in this encounter Visit Diagnoses Diagnosis 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) documented in this encounter Care Teams Night Baker Relationship Specialty Start Date End Date Clara Stanley PA [address] [place] [address] PCP - General Nurse Practitioner 04/05/19 Jasper Canchola MD [address] [place] [address] Surgeon Thoracic Surgery 05/11/19 Alexis Lopez MD [address] [address] Alternative Energy Technician Pulmonary Disease 05/11/19 Kip Del Rio MD [address] [place] [address] Medical Oncologist/[address] Justice Hematology and Oncology 05/11/19 Jacob Flynn MD [address] [place] [address] Radiation Oncologist Radiation Oncology 05/25/19 Renetta Ballesteros NP [address] [place], [place] [id number] Nurse Practitioner Radiation Oncology 06/11/22 documented as of this encounter
--- OUTSIDE RECORDS SUMMARY | 2024-03-02 04:19 | XMS_ITS | Encounter Summary ---
Author Organization [facility] Address [address] [place] [address] Phone Care Team Providers Care Vice President For Instruction Name Role Phone Clara Stanley Primary Care Provider + Jasper Canchola MD Unavailable Alexis Lopez MD Unavailable [phone] Kip Del Rio MD Unavailable Jacob Flynn MD Unavailable Renetta Ballesteros NP Unavailable [phone] Encounter Details Date Type Department Care Team (Late st Contact Info) Description 01/18/2024 Orders Only [facility] Oncology [address] [facility] Floor 5 [place] [address] Kip Del Rio MD [address] [facility] [address] [place], [place] [id number] Neuroendocrine carcinoma of lung (HCC) (Primary Dx); [...] file 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 Gender Identity Not on file Sexual Orientation [...] on: 01/18/2024 11:21 AM Modules accepted: Orders CHANGER documented in this encounter Plan of Treatment [...] documented as of this encounter Care Teams Vice President For Instruction Relationship Specialty Start Date End Date Clara Stanley PA [address] [place] [address] PCP - General Nurse Practitioner 04/05/19 Jasper Canchola MD [address] [place] [address] Surgeon Thoracic Surgery 05/11/19 Alexis Lopez MD [address] [address] Tar Processing Technician Pulmonary Disease 05/11/19 Kip Del Rio MD [address] [place] [address] Medical Oncologist/Cytotechnologist Supervisor Hematology and Oncology 05/11/19 Jacob Flynn MD [address] [place] [address] Radiation Oncologist Radiation Oncology 05/25/19 Renetta Ballesteros NP [address] [place] [address] Nurse Practitioner Radiation Oncology 06/11/22 documented as of this encounter
--- OUTSIDE RECORDS SUMMARY | 2024-03-02 04:19 | XMS_ITS | Encounter Summary ---
Author Organization [facility] Address [address] [place] [address] Phone Care Team Providers Care Parts Counter Representative Name Role Phone Clara Stanley Primary Care Provider + Jasper Canchola MD Unavailable Alexis Lopez MD Unavailable Kip Del Rio MD Unavailable Jacob Flynn MD Unavailable Renetta Ballesteros NP Unavailable [phone] Encounter Details Date Type Department Care Team (Late st Contact Info) Description 12/24/2023 Orders Only [facility] Oncology [address] [facility] Floor [address] [place] [address] Kip Del Rio MD [address] [facility] [address] [place] [address] Social History Tobacco Use Types [...] on file 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 Gender Identity Not on file Sexual Orientation Straight 09/22/2019 8: 21 PM CDT 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 on file Not on file documented as of this encounter Plan of Treatment Not on file documented as of this encounter Visit Diagnoses Not on filedocumented in this encounter Care Teams Parts Counter Representative Relationship Specialty Start Date End Date Clara Stanley PA [address] [place] [address] PCP - General Nurse Practitioner 04/05/19 Jasper Canchola MD [address] [place] [address] Surgeon Thoracic Surgery 05/11/19 Alexis Lopez MD [address] [address] Mri Manager Pulmonary Disease 05/11/19 Kip Del Rio MD [address] [place] [address] Medical Oncologist/Senior Applications Engineer Hematology and Oncology 05/11/19 Jacob Flynn MD [address] [facility] [address] [place] [address] Radiation Oncologist Radiation Oncology 05/25/19 Renetta Ballesteros NP [address] [facility] [address] [place] [address] Nurse Practitioner Radiation Oncology 06/11/22 documented as of this encounter
--- OUTSIDE RECORDS SUMMARY | 2024-03-02 04:19 | XMS_ITS | Encounter Summary ---
Author Organization [facility] Address [address] [place] [address] Care Team Providers Care [employer] Name Role Phone Clara Stanley Primary Care Provider + Jasper Canchola MD Unavailable Alexis Lopez MD Unavailable Kip Del Rio MD Unavailable [phone] Jacob Flynn MD Unavailable Renetta Ballesteros NP Unavailable Reason for Referral * Diagnostic Imaging (Routine) - Closed Specialty Diagnoses / Procedures Referred By Contrebekah t Referred To Contact Radiology Diagnoses Primary cancer of right lower lobe of lung (HCC) Liver lesion Procedures US Guided Biopsy Liver Consult to Radiology for Biopsy Kip Del Rio MD [address] [facility] [address] [place] [address] Phone: tel: fax: [address] [address] Referral ID Status Reason Start Date Expiration Date Visits Re quested Visits Authorized [id number] Closed 10/01/2023 10/30/2024 1 1 Reason for Visit * Diagnostic Imaging (Routine) - Closed Specialty Diagnoses / Procedures Referred By Contac t Referred To Contact Radiology Diagnoses Primary cancer of right lower lobe of lung (HCC) Liver lesion Procedures US Guided Biopsy Liver Consult to Radiology for Biopsy Kip Del Rio MD [address] [facility] [address] [place] [address] Phone: tel: fax: [address] [address] Referral ID Status Reason Start Date Expiration Date Visits Re quested Visits Authorized [id number] Closed 10/01/2023 10/30/2024 1 1 Encounter Details Date Type Department Care Team (Latest Contact Info) Description 10/16/2023 7:36 AM CDT - 10/16/2023 11:59 PM CDT Hospital Encounter [facility] Radiology [address] [place] [address] Primary cancer of right lower [...] file 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 Gender Identity Not on file Sexual [...] nurse coordinator phone number (during business hours): [phone] / [phone] For concerns after hours, please call your [...] Radiology Brief Post Procedure Note Attending: Radha Injection Molding Machine Tender: Bautista Sedation/Anesthesia: Mod Sedation Pre-Op/Pre-Procedure Diagnosis: History [...] nostril daily, Disp: 16 g, Rfl: 6 bmdurtwhizc-zpuaobuqe-pvoewzeq (Trelegy Ellipta) 100-62.5-25 mcg inhaler, Inhale 1 [...] fluticasone propionate (FLONASE) 50 mcg/actuation nasal spray msirkuylrex-wpqmsvpbx-bmmpokum (Trelegy Ellipta) 100-62.5-25 mcg inhaler montelukast (SINGULAIR) [...] 2 hours post biopsy -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 The [...] placed in formalin and submitted to the fnps service for delivery to Surgical Pathology. The [...] Momo Garcia M.D. Kip Del Rio MD [facility] [place] PROCEDURES Final Re sult * Surgical pathology (10/16/2023 8:33 AM CDT) Tissue (Liver, Biopsy, Needle Tumor) 10/16/2023 8:33 AM CDT Narrative PATHOLOGY [facility] - 10/20/2023 3:12 PM CDT EPIC results best viewed via link to PDF [facility] [place] [address] Note to Patients: This report may contain [...] Gender: ??M : ??1965 (Age: 58) Address: ??[address] [place] [address] ??[id number] Hospital #: ??[id number] Taken:10/16/2023 Received:10/16/2023 Reported: 10/20/2023 Patient Type: [facility] Ancillary ?? Service: UNKNOWN Location: [facility] Physician(s): ??Tara Ramon PA Diagnosis: Liver, core [...] Surgical Pathology and Flow Cytometry Departments at [facility] as part of an ongoing quality control lab technician program and in compliance with federally mandated [...] Surgical Pathology and Flow Cytometry Departments of [facility]. ??It has not been cleared or approved by the U. S. Food and Drug Administration. IMAGES AND SCANNED DOCUMENTS, IF INCLUDED, ONLY VIEWABLE IN PDF VERSION OF REPORT us Kip Del Rio MD LAB PATHOLOGY ORDERABLES F inal Result PATHOLOGY [facility] 3rd Floor [place], [place] [phone] documented in this encounter Visit Diagnoses Diagnosis [...] 2023 documented in this encounter Care Teams [employer] Relationship Specialty Start Date End Date Clara Stanley PA [address] [place] [address] PCP - General Nurse Practitioner 04/05/19 Jasper Canchola MD [address] [place] [address] Surgeon Thoracic Surgery 05/11/19 Alexis Lopez MD [address] [address] Lay Out Former Pulmonary Disease 05/11/19 Kip Del Rio MD [address] [place] [address] Medical Oncologist/Aluminum Molding Machine Operator Hematology and Oncology 05/11/19 Jacob Flynn MD [address] [place] [address] Radiation Oncologist Radiation Oncology 05/25/19 Renetta Ballesteros NP [address] [place] [address] Nurse Practitioner Radiation Oncology 06/11/22 documented as of this encounter
--- OUTSIDE RECORDS SUMMARY | 2024-03-02 04:19 | XMS_ITS | Encounter Summary ---
Author Organization [facility] Address [address] [place] [address] Phone Care Team Providers Care Realtime Captioner Name Role Phone Clara Stanley Primary Care Provider + Jasper Canchola MD Unavailable Alexis Lopez MD Unavailable Kip Del Rio MD Unavailable [phone] Jacob Flynn MD Unavailable Renetta Ballesteros NP Unavailable [phone] Encounter Details Date Type Department Care Team (Late st Contact Info) Description 10/22/2023 3:00 PM CDT Office Visit [facility] Oncology [address] [facility] 7th [place] [address] [place] [address] Kip Del Rio MD [address] [facility] [address] [place] [address] Malignant neoplasm of lower lobe of right [...] on file 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 Genomics: Cell-free DNA through [id number] 10/01/2023: FGFR2 N235K (0.2%), ARTIS [id number] (0.2%). MSI-High Not Detected. Treatment: Right lower [...] Units total) by mouth, Disp: , Rfl: bakzpfzgliq-gpcqemxfi-xpmwdwir (Trelegy Ellipta) 100-62.5-25 mcg inhaler, Inhale 1 [...] the medications. Dang Breaux MD Hematology-Oncology Fellow [facility] in [place] documented in this encounter Plan of Treatment Not on file documented as of this encounter Results * (ABNORMAL) Comprehensive metabolic panel (11/12/2023 2:53 PM CDT) Pathologist [facility] [place] Sodium 137 135 - 145 mmol/L Comment:Testing performed by : [facility], [address] [place] [phone] Potassium, pl 3.9 3.3 - 4.9 mmol/L CERNER BJ Comment:Testing performed by : [address] [address] Chloride 100 97 - 110 mmol/L CERNER BJ Comment:Testing performed by : [address] [address] CO2 30 22 - 32 mmol/L CERNER BJ Comment:Testing performed by : [address] [address] Anion gap 7 2 - 15 mmol/L CERNER BJ Comment:Testing performed by : [address] [address] BUN 12 6 - 25 mg/dL CERNER BJ Comment:Testing performed by : [address] [address] Creatinine 0.58(L) 0.80 - 1.30 mg/dL CERNER BJ Comment:Testing performed by : [address] [address] Glucose 98 70 - 199 mg/dL CERNER [...] was last revised 2022. Testing performed by: [facility], [address] [place] [phone] Calcium 9.9 8.5 - 10.3 mg/dL CERNER [facility] Comment:Testing performed by : [address] [address] Bilirubin, total 0.4 0.1 - 1.2 mg/dL CERNER BJ Comment:Testing performed by : [address] [address] Protein, pl 7.7 6.5 - 8.5 g/dL CERNER BJ Comment:Testing performed by : [address] [address] Albumin 4.4 3.5 - 5.0 g/dL CERNER [facility] Comment:Testing performed by : [address] [address] Alk phos 87 40 - 130 Units/L CERNER BJ Comment:Testing performed by : [address] [address] ALT 35 7 - 55 Units/L CERNER BJ Comment:Testing performed by : [address] [address] AST 36 10 - 50 Units/L CERNER BJ Comment:Testing performed by : [address] [address] Blood 11/12/2023 2:53 PM CDT 11/12/2023 2:59 PM CDT us Kip Del Rio MD LAB BLOOD ORDERABLES Final Result [facility] Department [place] [address] * (ABNORMAL) CBC with auto differential (11/12/2023 2:53 PM CDT) WBC 9.7 3.8 - 9.8 K/cumm Comment:Testing performed by : [facility], [address] [place] [phone] Hgb 13.2(L) 13.8 - 17.2 g/dL CERNER BJ Comment:Testing performed by : [address] [address] Hct 38.7(L) 40.7 - 50.3 % CERNER BJ Comment:Testing performed by : [address] [address] Plt 228 140 - 440 K/cumm CERNER BJ Comment:Testing performed by : [facility], [address] [place] [phone] MPV 10.0 6.8 - 10.4 fL CERNER BJ Comment:Testing performed by : [address] [address] RBC 4.33(L) 4.50 - 5.70 M/cumm CERNER BJ Comment:Testing performed by : [address] [address] MCV 89.3 80.0 - 97.6 fL CERNER BJ Comment:Testing performed by : [facility], [address] [place] [phone] MCH 30.5 26.7 - 33.7 pg CERNER BJ Comment:Testing performed by : [address] [address] MCHC 34.2 32.7 - 35.5 g/dL CERNER BJ Comment:Testing performed by : [address] [address] RDW CV 14.4 11.8 - 14.6 % CERNER BJ Comment:Testing performed by : [facility], [address] [place] [address] NRBC abs 0.00 0.00 - 0.01 K/cumm SEJAL HEARN Comment:Testing performed by : [facility], [address] [place] [phone] Blood 11/12/2023 2:53 PM CDT 11/12/2023 2:59 PM CDT us Kip Del Rio MD LAB BLOOD ORDERABLES Final Result SEJAL [facility] Department [place] [address] documented in this encounter Visit Diagnoses Diagnosis [...] 10/22/2023 documented in this encounter Care Teams Realtime Captioner Relationship Specialty Start Date End Date Clara Stanley PA [address] [place] [address] PCP - General Nurse Practitioner 04/05/19 Jasper Canchola MD [address] [place] [address] Surgeon Thoracic Surgery 05/11/19 Alexis Lopez MD [address] [address] Security Analyst Pulmonary Disease 05/11/19 Kip Del Rio MD [address] [facility] [address] [place] [address] Medical Oncologist/Diesel Locomotive Crane Operator Hematology and Oncology 05/11/19 Jacob Flynn MD [address] [facility] [address] [place], [place] [address] Radiation Oncologist Radiation Oncology 05/25/19 Renetta Ballesteros NP [address] [facility] [address] [place] [address] Nurse Practitioner Radiation Oncology 06/11/22 documented as of this encounter
--- OUTSIDE RECORDS SUMMARY | 2024-03-02 04:19 | XMS_ITS | Encounter Summary ---
Author Organization [facility] Address [address] [place] [address] Care Team Providers Care Behavioral [employer] Counselors Name Role Phone Clara Stanley Primary Care [...] W WO Contrast Kip Del Rio MD [address] [facility] [address] [place] [address] Phone: tel: fax: [address] [phone] Referral ID Status Reason Start Date Expiration Date Visits Re quested Visits Authorized [id number] Closed 01/20/2024 02/18/2025 1 1 ESSIVE THERAPIST Reason for Visit * Diagnostic Imaging (Routine) - Closed Specialty Diagnoses / Procedures Referred By Contac t Referred To Contact Radiology Diagnoses 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) Procedures MRI Brain W WO Contrast Kip Del Rio MD [address] [facility] [address] [place] [address] Phone: tel: fax: [address] [phone] Referral ID Status Reason Start Date Expiration Date Visits Re quested Visits Authorized [id number] Closed 01/20/2024 02/18/2025 1 1 Encounter Details Date Type Department Care Team (Latest Contact Info) Description 02/16/2024 4:50 PM EXPRESSIVE THERAPIST - 02/16/2024 11:59 PM EXPRESSIVE THERAPIST Hospital Encounter [facility] Radiology [facility] [address] [place] [address] Secondary malignant neoplasm of mediastinal [...] on file Legal Sex Male 1:17 AM EXPRESSIVE 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 Dictated by: Shannon Turner MD The radiology attending physician has personally reviewed this study, and had reviewed and/or edited this written report and agrees with it. Electronically signed by: Gabbi Zimmer MD Narrative 02/17/2024 4:37 PM EXPRESSIVE THERAPIST EXAMINATION: Magnetic resonance imaging (MRI) of the [...] 1 dose Contrast Given 02/16/2024 5:43 PM EXPRESSIVE THERAPIST 20 mL Right Antecubital documented in this encounter Orders Medications Ordered That Vikram ht Not Have Been Administered Count Last Ordered Date First Ordered Date gadoterate meglumine injection 20 mL 1 05/2023 documented in this encounter Care Teams Behavioral School Counselors Relationship Specialty Start Date End Date Clara Stanley PA [address] [place] [address] PCP - General Nurse Practitioner 04/05/19 Jasper Canchola MD [address] [place] [address] Surgeon Thoracic Surgery 05/11/19 Alexis Lopez MD [address] [address] Car Trimmer Pulmonary Disease 05/11/19 Kip Del Rio MD [address] [facility] [address] [place] [address] Medical Oncologist/Cast Iron Dipper Hematology and Oncology 05/11/19 Jacob Flynn MD [address] [place] [address] Radiation Oncologist Radiation Oncology 05/25/19 Renetta Ballesteros NP [address] [facility] [address] [place] [address] Nurse Practitioner Radiation Oncology 06/11/22 documented as of this encounter
--- OUTSIDE RECORDS SUMMARY | 2024-03-02 04:19 | XMS_ITS | Encounter Summary ---
Author Organization [facility] Address [address] [place] [address] Care Team Providers Care Registered Physical Therapist Name Role Phone Clara Stanley Primary Care Provider + Jasper Canchola MD Unavailable Alexis Lopez MD Unavailable Kip Del Rio MD Unavailable Jacob Flynn MD Unavailable Renetta Ballesteros NP Unavailable [phone] Reason for Referral * MRI/CAT/PET Scan (Routine) - Closed Specialty Diagnoses / Procedures Referred By Contac t Referred To Contact Radiology Diagnoses Malignant neoplasm of lower lobe of right lung (HCC) Primary cancer of right lower lobe of lung (HCC) Neuroendocrine carcinoma of lung (HCC) Procedures CT Chest Abdomen Pelvis W Contrast Renetta Ballesteros NP [address] [facility] [address] [place] [address] Phone: tel: fax: [address] [phone] Referral ID Status Reason Start Date Expiration Date Visits Re quested Visits Authorized [id number] Closed 03/16/2023 01/28/2024 1 1 Reason for Visit * MRI/CAT/PET Scan (Routine) - Closed Specialty Diagnoses / Procedures Referred By Contac t Referred To Contact Radiology Diagnoses Malignant neoplasm of lower lobe of right lung (HCC) Primary cancer of right lower lobe of lung (HCC) Neuroendocrine carcinoma of lung (HCC) Procedures CT Chest Abdomen Pelvis W Contrast Renetta Ballesteros, TJ [address] [facility] [address] [place] [address] Phone: tel: fax: [address] [phone] Referral ID Status Reason Start Date Expiration Date Visits Re quested Visits Authorized [id number] Closed 03/16/2023 01/28/2024 1 1 Encounter Details Date Type Department Care Team (Latest Contact Info) Description 06/23/2023 9:41 AM CDT - 06/23/2023 11:59 PM CDT Hospital Encounter 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 Gender Identity Not on file Sexual [...] 11/2023 documented in this encounter Care Teams Registered Physical Therapist Relationship Specialty Start Date End Date Clara Stanley PA [address] [place] [address] PCP - General Nurse Practitioner 04/05/19 Jasper Canchola MD [address] [place] [address] Surgeon Thoracic Surgery 05/11/19 Alexis Lopez MD [address] [address] Cashier Office Pulmonary Disease 05/11/19 Kip Del Rio MD [address] [place] [address] Medical Oncologist/Liturgical Music Director Hematology and Oncology 05/11/19 Jacob Flynn MD [address] [place] [address] Radiation Oncologist Radiation Oncology 05/25/19 Renetta Ballesteros NP [address] [place] [address] Nurse Practitioner Radiation Oncology 06/11/22 documented as of this encounter
--- OUTSIDE RECORDS SUMMARY | 2024-03-02 04:19 | XMS_ITS | Encounter Summary ---
Author Organization 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) Procedures MRI Brain W WO Contrast Kip Del Rio MD [address] [facility] [address] [place] [address] Phone: tel: fax: [address] [address] Referral ID Status Reason Start Date Expiration Date Visits Re quested Visits Authorized [id number] Closed 01/20/2024 02/18/2025 1 1 PRODUCER * Diagnostic Imaging (Routine) - Closed Specialty Diagnoses / Procedures Referred By Erik t Referred To Contact Radiology Diagnoses 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) Procedures CT Chest Abdomen Pelvis W Contrast Kip Del Rio MD [address] [place] [address] Phone: tel: fax: [facility] 1 [facility] [place] [address] Referral ID Status Reason Start Date Expiration Date Visits Re quested Visits Authorized [id number] Closed 01/20/2024 02/18/2025 1 1 PRODUCER Reason for Visit * Oncology (Routine) - Authorized Specialty Diagnoses / Procedures Referred By Erik t Referred To Contact Oncology Diagnoses Primary cancer of right lower lobe of lung (HCC) Jacob Flynn MD [address] [place] [address] Phone: tel: fax: Kip Del Rio MD [address] [place] [address] Phone: tel: fax: Referral ID Status Reason Start Date Expiration Date Visits Requested Visits Authorized [id number] Authorized Specialty Services Required 09/25/2023 03/15/2024 99 99 Encounter Details Date Type Department Care Team (Late st Contact Info) Description 01/21/2024 9:40 AM WEB PRODUCER Office Visit 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 Genomics: Cell-free DNA through [place] [address] 10/01/2023: FGFR2 N235K (0.2%), ARTIS [id number] (0.2%). MSI-High Not Detected. Treatment: Right lower [...] Units total) by mouth, Disp: , Rfl: wxzwzoxdsdb-mppmmkrmx-wjqdnwqx (Trelegy Ellipta) 100-62.5-25 mcg inhaler, Inhale 1 [...] Kip Del Rio M.D. Division of Oncology [facility] PRODUCER documented in this encounter Plan of Treatment Not on file documented as of this encounter Results * Comprehensive metabolic panel (02/18/2024 9:52 AM WEB PRODUCER) Sodium 144 135 - 145 mmol/L Potassium, pl 4.7 3.3 - 4.9 mmol/L [facility] Chloride 107 97 - 110 mmol/L [facility] CO2 32 22 - 32 mmol/L [facility] Anion gap 5 2 - 15 mmol/L [facility] BUN 15 6 - 25 mg/dL [facility] Creatinine 0.81 0.80 - 1.30 mg/dL [facility] Glucose 110 70 - 199 mg/dL [facility] Comment: Interpretive Data Fasting glucose [...] Calcium 9.8 8.5 - 10.3 mg/dL [facility] Bilirubin, total 0.2 0.1 - 1.2 mg/dL [facility] Protein, pl 8.0 6.5 - 8.5 g/dL [facility] Albumin 4.5 3.5 - 5.0 g/dL [facility] Alk phos 112 40 - 130 Units/L [facility] ALT 22 7 - 55 Units/L [facility] AST 25 10 - 50 Units/L [facility] Blood 02/18/2024 9:52 AM WEB PRODUCER 02/18/2024 9:57 AM WEB PRODUCER us Kip Del Rio MD LAB BLOOD ORDERABLES Final Result SEJAL HEARN One [facility] Department [place] [address] * (ABNORMAL) CBC with auto differential (02/18/2024 9:52 AM WEB PRODUCER) WBC 11.8(H) 3.8 - 9.9 K/cumm Comment:Testing performed by : [facility], [address] [place] [address] Hgb 14.1 13.0 - 17.5 g/dL CERRAFAELA HEARN Comment:Testing performed by : [facility], [address] [place] [address] Hct 42.4 38.9 - 50.3 % CERRAFAELA HEARN Comment:Testing performed by : [facility], [address] [place] [address] Plt 213 150 - 400 K/cumm CERRAFAELA HEARN Comment:Testing performed by : [facility], [address] [place] [address] MPV 9.6 6.8 - 10.4 fL CERRAFAELA HEARN Comment:Testing performed by : [facility], [address] [place] [address] RBC 4.39 4.30 - 5.80 M/cumm CERRAFAELA BJ Comment:Testing performed by : [facility], [address] [place] [address] MCV 96.4 81.3 - 96.4 fL CERRAFAELA BJ Comment:Testing performed by : [facility], [address] [place] [address] MCH 32.0 27.1 - 33.3 pg CERRAFAELA BJ Comment:Testing performed by : [facility], [address] [place] [address] MCHC 33.2 32.3 - 35.7 g/dL CERRAFAELA BJ Comment:Testing performed by : [facility], [address] [place] [phone] RDW CV 16.8(H) 11.1 - 14.9 % [facility] Comment:Testing performed by : [facility], [address] [place] [phone] NRBC abs 0.00 0.00 - 0.01 K/cumm [facility] Comment:Testing performed by : [facility], [address] [place] [phone] Blood 02/18/2024 9:52 AM WEB PRODUCER 02/18/2024 9:54 AM WEB PRODUCER us Kip Del Rio MD LAB BLOOD ORDERABLES Final Result [facility] One [facility] Department [place] [address] * CT Chest Abdomen Pelvis W Contrast (02/16/2024 6:28 PM WEB PRODUCER) Anatomical Region Laterality Modality Body N/A Computed Tomogra phy 02/17/2024 9:44 AM WEB PRODUCER Impressions 02/17/2024 12:53 PM WEB PRODUCER 1. ??No significant change in posttreatment changes [...] Vikki Way M.D. Narrative 02/17/2024 12:53 PM WEB PRODUCER EXAMINATION: ??Computed tomography of the chest, abdomen [...] Brain W WO Contrast (02/16/2024 5:42 PM WEB PRODUCER) Anatomical Region Laterality Modality Head and Neck N/A Magnetic Resonan ce 02/17/2024 8:38 AM WEB PRODUCER Impressions 02/17/2024 4:37 PM WEB PRODUCER No evidence of intracranial metastatic disease. Dictated by: Shannon Turner MD The radiology attending physician has personally reviewed this study, and had reviewed and/or edited this written report and agrees with it. Electronically signed by: Gabbi Zimmer MD Narrative 02/17/2024 4:37 PM WEB PRODUCER EXAMINATION: Magnetic resonance imaging (MRI) of the [...] 02/18/2024 documented in this encounter Care Teams Beef Ribber Relationship Specialty [place] [address] [place] [address] PCP - General Nurse Practitioner 04/05/19 Jasper Canchola MD [address] [place] [address] Surgeon Thoracic Surgery 05/11/19 Alexis Lopez MD [address] [facility] [address] [place] [address] [place] [address] Health Tech Pulmonary Disease 05/11/19 Kip Del Rio MD [address] [facility] [address] [place], [place] [id number] Medical Oncologist/Business And Marketing Teacher Hematology and Oncology 05/11/19 Jacob Flynn MD [address] [facility] [address] [place], [place] [id number] Radiation Oncologist Radiation Oncology 05/25/19 Renetta Ballesteros NP 49[address] [facility] [address] [place] [address] Nurse Practitioner Radiation Oncology 06/11/22 documented as of this encounter
--- OUTSIDE RECORDS SUMMARY | 2024-03-02 04:19 | XMS_ITS | Encounter Summary ---
Author Organization [facility] Address [address] [place] [address] Phone Care Team Providers Care Operator Engineer Name Role Phone Clara Stanley Primary Care Provider + Jasper Canchola MD Unavailable Alexis Lopez MD Unavailable [phone] Kip Del Rio MD Unavailable Jacob Flynn MD Unavailable Renetta Ballesteros NP Unavailable [phone] Encounter Details Date Type Department Care Team (Late st Contact Info) Description 02/18/2024 10:40 AM DOCUMENTATION LEAD Office Visit [facility] Oncology [address] [facility] Floor 5 [place] [address] Kip Del Rio MD [address] [facility] [address] [place] [address] Secondary malignant neoplasm of mediastinal [...] on file Legal Sex Male 1:17 AM DOCUMENTATION LEAD Gender Identity Not on file Sexual Orientation Straight 09/22/2019 8: 21 PM CDT 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 on file Not on file documented as of this encounter Last Filed Vital Signs Vital Sign Reading Time Taken Comments Blood Pressure 132/77 02/18/2024 9:58 AM DOCUMENTATION LEAD Pulse 101 02/18/2024 9:58 AM DOCUMENTATION LEAD Temperature 36.4 ??C (97.6 ??F) 02/18/2024 9:58 AM CS T Respiratory Rate 19 02/18/2024 9:58 AM DOCUMENTATION LEAD Oxygen Saturation 99% 02/18/2024 9:58 AM DOCUMENTATION LEAD Inhaled Oxygen Concentration - - Weight 153 kg (337 lb 6.4 oz) 02/18/2024 9:58 AM DOCUMENTATION LEAD Height - - Body Mass Index 42.17 02/16/2024 4:53 PM DOCUMENTATION LEAD documented in this encounter Progress Notes * [...] well-differentiated neuroendocrine tumor. Genomics: Cell-free DNA through [id number] 10/01/2023: FGFR2 N235K (0.2%), ARTIS [id number] (0.2%). MSI-High Not Detected. Treatment: Right lower [...] Units total) by mouth, Disp: , Rfl: llfdocvnsyn-ezauynsuy-vkjhiiae (Trelegy Ellipta) 100-62.5-25 mcg inhaler, Inhale 1 [...] Del Rio MD at 02/22/2024 10:00 AM DOCUMENTATION LEAD MENTATION LEAD MENTATION LEAD Associated attestation - Kip Del Rio MD - 02/22/2024 10:00 AM DOCUMENTATION LEAD I have seen and examined the patient. [...] on: 02/25/2024 02:15 PM Modules accepted: Orders MENTATION LEAD documented in this encounter Plan of Treatment [...] 02/17/2024 documented in this encounter Care Teams Operator Engineer Relationship Specialty Start Date End Date Clara Stanley PA [address] [place] [address] PCP - General Nurse Practitioner 04/05/19 Jasper Canchola MD [address] [place] [address] Surgeon Thoracic Surgery 05/11/19 Alexis Lopez MD [address] [facility] [place] [address] Supervisor Rides Pulmonary Disease 05/11/19 Kip Del Rio MD [address] [facility] [address] [place] [address] Medical Oncologist/Elevated Work Platform Operator Hematology and Oncology 05/11/19 Jacob Flynn MD [address] [facility] [address] # [address] LL [address] [place] [address] Radiation Oncologist Radiation Oncology 05/25/19 Renetta Ballesteros NP [address] [facility] [address] [place] [address] Nurse Practitioner Radiation Oncology 06/11/22 documented as of this encounter
--- OUTSIDE RECORDS SUMMARY | 2024-03-02 04:19 | XMS_ITS | Encounter Summary ---
Author Organization [facility] Address [address] [place] [address] Care Team Providers Care Stave Bolt Equalizer Name Role Phone Clara Stanley Primary Care Provider + Jasper Canchola MD Unavailable Alexis Lopez MD Unavailable Kip Del Rio MD Unavailable [phone] Jacob Flynn MD Unavailable Renetta Ballesteros NP Unavailable Encounter Details Date Type Department Care Team (Late st Contact Info) Description 09/25/2023 Telephone [facility] Advanced Medicine Radiation Oncology [address] [facility] [place] [address] Neal Frias MD [address] [facility] # [address] [place] [address] Social History Tobacco Use Types Packs/Day Years [...] on file 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 Gender Identity Not on file Sexual [...] on filedocumented in this encounter Care Teams Stave Bolt Equalizer Relationship Specialty Start Date End Date Clara Stanley PA [address] [place] [address] PCP - General Nurse Practitioner 04/05/19 Jasper Canchola MD [address] [place] [address] Surgeon Thoracic Surgery 05/11/19 Alexis Lopez MD [address] [facility] [address] [address] Development Eng Pulmonary Disease 05/11/19 Kip Del Rio MD 49[address] [facility] [address] [place] [address] Medical Oncologist/Refueling Ramp Attendant Hematology and Oncology 05/11/19 Jacob Flynn MD [address] [facility] [address] [place] [address] Radiation Oncologist Radiation Oncology 05/25/19 Renetta Ballesteros NP [address] [facility] [address] [place], [place] [address] Nurse Practitioner Radiation Oncology 06/11/22 documented as of this encounter
--- OUTSIDE RECORDS SUMMARY | 2024-03-02 04:19 | XMS_ITS | Encounter Summary ---
Author Organization 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) on the [facility]. NPO Status Verified: Yes- 6 hrs before procedure time Laborer Car Barn to and from procedure (if NO document [...] Bleeding/Clotting: None Most recent coag results: 10/01/23: PTR=502, PT/INR=10.6/0.98, PTT=33 Date of redraw (if applicable): [...] labs from 09/[address] PRE-BIOPSY INSTRUCTIONS [facility] ~Please provide to patient at time of scheduling~ Patient will need to arrive 1.5 hours prior to appointment time. Report to the [facility] (#[facility]). Park in the [facility], walk over in the walkway and report [...] return completed form to Radiology Fax to [phone] (Attn: Agusto). ANTIHYPERGLYCEMICS (Blood sugar medications): 1) [...] the procedure date, and results either in [facility] or faxed to [phone] Attn: and June If pt has to [...] person who will serve as the patients fountain operator at the time of discharge. If a [...] filedocumented in this encounter Care Teams Supervisor Picking Crew Relationship Specialty Start Date End Date Clara Stanley PA [address] [place] [address] PCP - General Nurse Practitioner 04/05/19 Jasper Canchola MD [address] [place] [address] Surgeon Thoracic Surgery 05/11/19 Alexis Lopez MD [address] [address] Production Honing Machine Operator Pulmonary Disease 05/11/19 Kip Del Rio MD [address] [place] [address] Medical Oncologist/Floor Coverer Apprentice Hematology and Oncology 05/11/19 Jacob Flynn MD [address] [place] [address] Radiation Oncologist Radiation Oncology 05/25/19 Renetta Ballesteros NP [address] [place] [address] Nurse Practitioner Radiation Oncology 06/11/22 documented as of this encounter
--- OUTSIDE RECORDS SUMMARY | 2024-03-02 04:19 | XMS_ITS | Encounter Summary ---
Author Organization [facility] Address [address] [place] [address] Phone Care Team Providers Care [place] Supervisor Name Role Phone Clara Stanley Primary Care Provider + Jasper Canchola MD Unavailable Alexis Lopez MD Unavailable Kip Del Rio MD Unavailable Jacob Flynn MD Unavailable Renetta Ballesteros NP Unavailable [phone] Encounter Details Date Type Department Care Team (Late st Contact Info) Description 01/21/2024 Orders Only [facility] Oncology [address] [facility] Floor 5 [place] [address] Kip Del Rio MD [address] [facility] [address] [place], [place] [id number] Social History Tobacco Use Types Packs/Day Years [...] on file 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 Gender Identity Not on file Sexual Orientation Straight 09/22/2019 8: 21 PM CDT 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 on file Not on file documented as of this encounter Plan of Treatment Not on file documented as of this encounter Visit Diagnoses Not on filedocumented in this encounter Care Teams [place] Supervisor Relationship Specialty Start Date End Date Clara Stanley PA [address] [place] [address] PCP - General Nurse Practitioner 04/05/19 Jasper Canchola MD [address] [place] [address] Surgeon Thoracic Surgery 05/11/19 Alexis Lopez MD [address] [address] Log Cutter Pulmonary Disease 05/11/19 Kip Del Rio MD [address] [place] [address] Medical Oncologist/Picture Painter Hematology and Oncology 05/11/19 Jacob Flynn MD [address] [facility] [address] [place] [address] Radiation Oncologist Radiation Oncology 05/25/19 Renetta Ballesteros NP [address] [facility] [address] [place] [address] Nurse Practitioner Radiation Oncology 06/11/22 documented as of this encounter
--- OUTSIDE RECORDS SUMMARY | 2024-03-02 04:19 | XMS_ITS | Encounter Summary ---
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 Gender Identity Not on file Sexual [...] on filedocumented in this encounter Care Teams Stakeholder Manager Relationship Specialty Start Date End Date Clara Stanley PA [address] [place] [address] PCP - General Nurse Practitioner 04/05/19 Jasper Canchola MD [address] [place] [address] Surgeon Thoracic Surgery 05/11/19 Alexis Lopez MD [address] [address] Manager Of Engineering Pulmonary Disease 05/11/19 Kip Del Rio MD [address] [place] [address] Medical Oncologist/Captain Waiter/Waitress Hematology and Oncology 05/11/19 Jacob Flynn MD [address] [place] [address] Radiation Oncologist Radiation Oncology 05/25/19 Renetta Ballesteros NP [address] [place] [address] Nurse Practitioner Radiation Oncology 06/11/22 documented as of this encounter
--- OUTSIDE RECORDS SUMMARY | 2024-03-02 04:19 | XMS_ITS | Encounter Summary ---
Author Organization [facility] Healthcare Address [address] [place] [address] Care Team Providers Care Telecom Network Manager Name Role Phone Clara Stanley Primary Care Provider + Jasper Canchola MD Unavailable Alexis Lopez MD Unavailable Kip Del Rio MD Unavailable Jacob Flynn MD Unavailable Renetta Ballesteros NP Unavailable [phone] Encounter Details Date Type Department Care Team (Late st Contact Info) Description 10/22/2023 Telephone [facility] [address] 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 [employer] uses [facility] Specialty [phone] documented in this encounter Plan of Treatment Not on file documented as of this encounter Visit Diagnoses Not on filedocumented in this encounter Care Teams Telecom Network Manager Relationship Specialty Start Date End Date Clara Stanley PA [address] [place] [address] PCP - General Nurse Practitioner 04/05/19 Jasper Canchola MD [address] [place] [address] Surgeon Thoracic Surgery 05/11/19 Alexis Lopez MD [address] [facility] [address] [place] [address] [place] [address] Patternmaker Apprentice Metal Pulmonary Disease 05/11/19 Kip Del Rio MD 49[address] [facility] [address] [place] [address] Medical Oncologist/Supreme [address] Justice Hematology and Oncology 05/11/19 Jacob Flynn MD 49[address] [facility] [address] [place] [address] Radiation Oncologist Radiation Oncology 05/25/19 Renetta Ballesteros NP 49[address] [facility] [address] [place] [address] Nurse Practitioner Radiation Oncology 06/11/22 documented as of this encounter
--- OUTSIDE RECORDS SUMMARY | 2024-03-02 04:19 | XMS_ITS | Encounter Summary ---
Author Organization [facility] Address [address] [place] [address] Care Team Providers Care Laborer Pipeline Name Role Phone Clara Stanley Primary Care Provider + Jasper Canchola MD Unavailable Alexis Lopez MD Unavailable Kip Del Rio MD Unavailable Jacob Flynn MD Unavailable Renetta Ballesteros NP Unavailable [phone] Reason for Referral * MRI/CAT/PET Scan (Routine) - Closed Specialty Diagnoses / Procedures Referred By Erik [email or web address] Referred To Contact Radiology Diagnoses Primary cancer of right lower lobe of lung (HCC) Radiotherapy follow-up examination Procedures MRI Abdomen Liver W WO Contrast Renetta Ballesteros NP [address] [facility] [address] [place] [address] Phone: tel: fax: [address] [phone] Referral ID Status Reason Start Date Expiration Date Visits Re quested Visits Authorized [id number] Closed 09/23/2023 10/22/2024 1 1 Reason for Visit * MRI/CAT/PET Scan (Routine) - Closed Specialty Diagnoses / Procedures Referred By Erik t Referred To Contact Radiology Diagnoses Primary cancer of right lower lobe of lung (HCC) Radiotherapy follow-up examination Procedures MRI Abdomen Liver W WO Contrast Renetta Ballesteros, TJ [address] 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 Renetta Ballesteros NP [facility] MRI PROCEDURES Final Result documented in this [...] 09/23 documented in this encounter Care Teams Laborer Pipeline Relationship Specialty Start Date End Date Clara Stanley PA [address] [place] [address] PCP - General Nurse Practitioner 04/05/19 Jasper Canchola MD [address] [place] [address] Surgeon Thoracic Surgery 05/11/19 Alexis Lopez MD [address] [address] Laborer Filter Plant Pulmonary Disease 05/11/19 Kip Del Rio MD [address] [place] [address] Medical Oncologist/Car Sealer Hematology and Oncology 05/11/19 Jacob Flynn MD [address] [facility] [address] [place] [address] Radiation Oncologist Radiation Oncology 05/25/19 Renetta Ballesteros NP [address] [facility] [address] [place] [address] Nurse Practitioner Radiation Oncology 06/11/22 documented as of this encounter
--- OUTSIDE RECORDS SUMMARY | 2024-03-02 04:19 | XMS_ITS | Encounter Summary ---
Author Organization [facility] Healthcare Address [address] [place] [address] Care Team Providers Care Buckle And Button Maker Name Role Phone Clara Stanley Primary Care Provider + Jasper Canchola MD Unavailable Alexis Lopez MD Unavailable Kip Del Rio MD Unavailable Jacob Flynn MD Unavailable Renetta Ballesteros NP Unavailable Encounter Details Date Type Department Care Team (Late st Contact Info) Description 11/20/2023 12:30 PM CDT Lab [facility] [address] [facility] 7th [place] [address] Primary cancer of right lower lobe of [...] on file 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 Testing performed by: [facility], [address] [place] [phone] Blood 11/20/2023 12:5 8 PM CDT 11/20/2023 1:03 PM CDT us Kip Del Rio MD LAB BLOOD ORDERABLES Final Result SE[facility] One [facility] Department [place] [address] * (ABNORMAL) Differential, auto (11/20/2023 12:58 PM CDT) Neutrophil abs 7.3(H) 1.5 - 6.5 K/cumm Comment:Testing performed by : [facility], [address] [place] [phone] Lymphocyte abs 1.5 0.8 - 3.3 K/cumm SEJAL HEARN Comment:Testing performed by : [facility], [address] [place] [phone] Monocyte abs 1.3(H) 0.2 - 0.8 K/cumm SEJAL HEARN Comment:Testing performed by : [facility], [address] [place] [phone] Eosinophil abs 0.3 0.0 - 0.5 K/cumm SEJAL HEARN Comment:Testing performed by : [facility], [address] [place] [phone] Basophil abs 0.0 0.0 - 0.1 K/cumm SEJAL HEARN Comment:Testing performed by : [facility], [address] [place] [phone] Neutrophil pct 70.1 % SEJAL HEARN Comment: Interpretive Data Percent cell count reference ranges are not reported, since discordance with absolute values may lead to misinterpretation of CBC data. Current Interpretive Data was last revised on 2017. Testing performed by: [facility], [address] [place] [phone] Lymphocyte pct 14.3 % SEJAL HEARN Comment: Interpretive Data Percent cell count reference ranges are not reported, since discordance with absolute values may lead to misinterpretation of CBC data. Current Interpretive Data was last revised on 2017. Testing performed by: [facility], [address] [place] [phone] Monocyte pct 12.3 % SEJAL HEARN Comment:Testing performed by : [facility], [address] [place] [phone] Eosinophil pct 2.8 % SEJAL HEARN Comment:Testing performed by : [facility], [address] [place] [phone] Basophil pct 0.5 % SEJAL HEARN Comment:Testing performed by : [facility], [address] [place] [phone] Blood 11/20/2023 12:5 8 PM CDT 11/20/2023 1:03 PM CDT us Kip Del Rio MD LAB BLOOD ORDERABLES Final Result SEJAL HEARN [facility] Department [place] [address] * (ABNORMAL) CBC with auto differential (11/20/2023 12:58 PM CDT) WBC 10.4(H) 3.8 - 9.8 K/cumm Comment:Testing performed by : [facility], [address] [place] [phone] Hgb 13.8 13.8 - 17.2 g/dL SEJAL ARNOLD Comment:Testing performed by : [facility], [address] [place] [phone] Hct 41.1 40.7 - 50.3 % CERRAFAELA BJ Comment:Testing performed by : [facility], [address] [place], [place] [phone] Plt 229 140 - 440 K/cumm SEJAL HEARN Comment:Testing performed by : [facility], [address] [place], [place] [phone] MPV 9.4 6.8 - 10.4 fL SEJAL BJ Comment:Testing performed by : [facility], [address] [place], [place] [phone] RBC 4.53 4.50 - 5.70 M/cumm SEJAL BJ Comment:Testing performed by : [place] [phone] MCV 90.7 80.0 - 97.6 fL SEJAL HEARN Comment:Testing performed by : [facility], [address] [place], [place] [phone] MCH 30.4 26.7 - 33.7 pg SEJAL HEARN Comment:Testing performed by : [facility], [address] [place] [phone] MCHC 33.5 32.7 - 35.5 g/dL [facility] Comment:Testing performed by : [place] [phone] RDW CV 15.2(H) 11.8 - 14.6 % SEJAL HEARN Comment:Testing performed by : [address] [phone] NRBC abs 0.01 0.00 - 0.01 K/cumm [facility] Comment:Testing performed by : [facility], [address] [place] [phone] Blood 11/20/2023 12:5 8 PM CDT 11/20/2023 1:03 PM CDT us Kip Del Rio MD LAB BLOOD ORDERABLES Final Result [facility] [place] [address] * (ABNORMAL) Comprehensive metabolic panel (11/20/2023 12:58 PM CDT) Sodium 136 135 - 145 mmol/L Comment:Testing performed by : [facility], [address] [place] [phone] Potassium, pl 4.7 3.3 - 4.9 mmol/L [facility]ER [facility] Comment:Testing performed by : [facility], [address] [place] [phone] Chloride 101 97 - 110 mmol/L CERNER BJ Comment:Testing performed by : [facility], [address] [place] [phone] CO2 29 22 - 32 mmol/L CERNER BJ Comment:Testing performed by : [facility], [address] [place] [phone] Anion gap 6 2 - 15 mmol/L CERNER BJ Comment:Testing performed by : [address] [phone] BUN 14 6 - 25 mg/dL CERNER BJ Comment:Testing performed by : [facility], [address] [place] [phone] Creatinine 0.75(L) 0.80 - 1.30 mg/dL CERNER BJ Comment:Testing performed by : [facility], [address] [place] [phone] Glucose 97 70 - 199 mg/dL CERNER [facility] Comment: Interpretive Data Fasting glucose [...] was last revised 2022. Testing performed by: [facility], [address] [place] [phone] Calcium 10.0 8.5 - 10.3 mg/dL CERNER BJ Comment:Testing performed by : [facility], [address] [place] [phone] Bilirubin, total 0.5 0.1 - 1.2 mg/dL [facility] Comment:Testing performed by : [facility], [address] [place] [phone] Protein, pl 7.7 6.5 - 8.5 g/dL [facility] Comment:Testing performed by : [facility], [address] [place] [phone] Albumin 4.4 3.5 - 5.0 g/dL [facility] Comment:Testing performed by : [facility], [address] [place] [phone] Alk phos 91 40 - 130 Units/L [facility] Comment:Testing performed by : [facility], [address] [place] [phone] ALT 25 7 - 55 Units/L [facility] Comment:Testing performed by : [facility], [address] [place] [phone] AST 24 10 - 50 Units/L [facility] Comment:Testing performed by : [facility], [address] [place] [phone] Blood 11/20/2023 12:5 8 PM CDT 11/20/2023 1:03 PM CDT us Kip Del Rio MD LAB BLOOD ORDERABLES Final Result Performing Organization Address City/State/[facility] Co de Phone Number [facility] Department [place] [address] documented in this encounter Visit Diagnoses Diagnosis Primary cancer of right lower lobe of lung (HCC) documented in this encounter Care Teams Buckle And Button Maker Relationship Specialty Start Date End Date Clara Stanley PA [address] [place] [address] PCP - General Nurse Practitioner 04/05/19 Jasper Canchola MD [address] [place] [address] Surgeon Thoracic Surgery 05/11/19 Alexis Lopez MD [address] [facility] [address] [address] Termite Renewal Inspector Pulmonary Disease 05/11/19 Kip Del Rio MD [address] [place] [address] Medical Oncologist/Industrial Hygienist Hematology and Oncology 05/11/19 Jacob Flynn MD [address] [place], [place] [phone] Radiation Oncologist Radiation Oncology 05/25/19 Renetta Ballesteros NP [address] [facility] [address] [place] [address] Nurse Practitioner Radiation Oncology 06/11/22 documented as of this encounter
--- OUTSIDE RECORDS SUMMARY | 2024-03-02 04:19 | XMS_ITS | Encounter Summary ---
Author Organization [facility] Address [address] [place] [address] Care Team Providers Care Billing Auditor Name Role Phone Clara Stanley Primary Care Provider + Jasper Canchola MD Unavailable Alexis Lopez MD Unavailable Kip Del Rio MD Unavailable Jacob Flynn MD Unavailable [phone] Renetta Ballesteros NP Unavailable [phone] Reason for Visit * Diagnostic Lab (Routine) - Canceled Specialty Diagnoses / Procedures Referred By Contac t Referred To Contact Lab Diagnoses Primary cancer of right lower lobe of lung (HCC) Procedures Guardant - Miscellaneous Test Kip Del Rio MD [address] [facility] [address] [place] [address] Phone: tel: fax: Referral ID Status Reason Start Date Expiration Date V isits Requested Visits Authorized [id number] Canceled 10/01/2023 10/30/2024 1 1 Encounter Details Date Type Department Care Team (Late st Contact Info) Description 10/01/2023 4:45 PM CDT Lab [facility] and [facility] [address] [facility] 7th [place] [address] Primary cancer of right lower [...] file 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 Gender Identity Not on file Sexual Orientation [...] of right lower lobe of lung (HCC) [id number] CDX Routine 10/01/2023 4:44 PM CDT Primary [...] LAB BLOOD ORDERABLES Final Result SEJAL [facility] One [facility] Department [place] [address] * (ABNORMAL) Differential, auto (10/01/2023 4:55 PM CDT) Neutrophil abs 7.3(H) 1.5 - 6.5 K/cumm Imm gran abs 0.1 0.0 - 0.1 K/cumm [facility] Lymphocyte abs 1.6 0.8 - 3.3 K/cumm [facility] Monocyte abs 1.2(H) 0.2 - 0.8 K/cumm [facility] Eosinophil abs 0.4 0.0 - 0.5 K/cumm [facility] Basophil abs 0.1 0.0 - 0.1 K/cumm [facility] Neutrophil pct 68.8 % [facility] Comment: Interpretive Data Percent cell count reference ranges are not reported, since discordance with absolute values may lead to misinterpretation of CBC data. Current Interpretive Data was last revised on 2017. Imm gran pct 0.6 % [facility] Comment: Interpretive Data Percent cell count reference ranges are not reported, since discordance with absolute values may lead to misinterpretation of CBC data. Current Interpretive Data was last revised on 2017. Lymphocyte pct 14.7 % [facility] Comment: Interpretive Data Percent cell count reference ranges are not reported, since discordance with absolute values may lead to misinterpretation of CBC data. Current Interpretive Data was last revised on 2017. Monocyte pct 11.5 % [facility] Comment: Interpretive Data Percent cell count reference ranges are not reported, since discordance with absolute values may lead to misinterpretation of CBC data. Current Interpretive Data was last revised on 2017. Eosinophil pct 3.7 % [facility] Comment: Interpretive Data Percent cell count reference ranges are not reported, since discordance with absolute values may lead to misinterpretation of CBC data. Current Interpretive Data was last revised on 2017. Basophil pct 0.7 % [facility] Comment: Interpretive Data Percent cell count reference ranges are not reported, since discordance with absolute values may lead to misinterpretation of CBC data. Current Interpretive Data was last revised on 2017. Blood 10/01/2023 4:55 PM CDT 10/01/2023 5:01 PM CDT us Kip Del Rio MD LAB BLOOD ORDERABLES Final Result CERNER [facility] Department [place] [address] * Protime-INR (10/01/2023 4:55 PM CDT) PT 10.6 9.7 - 13.0 sec INR 0.98 0.90 - 1.20 [facility] Comment: Interpretive data Oral anticoagulant therapeutic ranges: Venous thromboembolism prophylaxis or treatment: 2.0-3.0 CARDIOLOGY Standard range: 2.0-3.0 High-intensity range: 2.5-3.5 Refer to indication-specific guidelines for appropriate target ranges for prosthetic heart valve replacement. Current interpretive data was last revised on 2019. Blood 10/01/2023 4:55 PM CDT 10/01/2023 5:01 PM CDT Kip Del Rio MD LAB BLOOD ORDERABLES Final Result Performing Organization Address City/[facility] Co de Phone Number [facility] [place] [address] * aPTT (10/01/2023 4:55 PM CDT) Pathologist [facility] aPTT 33 28 - 38 sec Comment: Interpretive Data Heparin therapeutic range: 66.0 - 100.0 seconds. Range based on correlation with therapeutic heparin activity range of 0.3 - 0.7 Units/mL. Current interpretive data was last revised on 2022. Blood 10/01/2023 4:55 PM CDT 10/01/2023 5:01 PM CDT us Kip Del Rio MD LAB BLOOD ORDERABLES Final Result Performing Organization Address City/State/[facility] Co de Phone Number [facility] Department [place] [address] * (ABNORMAL) CBC with auto differential (10/01/2023 4:55 PM CDT) WBC 10.6(H) 3.8 - 9.9 K/cumm Hgb 14.2 13.0 - 17.5 g/dL [facility] Hct 43.3 38.9 - 50.3 % [facility] Plt 247 150 - 400 K/cumm [facility] MPV 12.1 9.1 - 12.3 fL [facility] RBC 4.92 4.30 - 5.80 M/cumm [facility] MCV 88.0 81.3 - 96.4 fL [facility] MCH 28.9 27.1 - 33.3 pg [facility] MCHC 32.8 32.3 - 35.7 g/dL [facility] RDW CV 13.4 11.1 - 14.9 % [facility] RDW SD 43.4 35.7 - 48.1 fL [facility] NRBC abs 0.00 0.00 - 0.01 K/cumm [facility] Blood 10/01/2023 4:55 PM CDT 10/01/2023 5:01 PM CDT us Kip Del Rio MD LAB BLOOD ORDERABLES Final Result [facility] One [facility] Department [place] [address] * (ABNORMAL) Comprehensive metabolic panel (10/01/2023 4:55 PM CDT) [facility] Sodium 140 135 - 145 mmol/L Potassium, pl 4.0 3.3 - 4.9 mmol/L [facility] Chloride 103 97 - 110 mmol/L [facility] CO2 28 22 - 32 mmol/L [facility] Anion gap 9 2 - 15 mmol/L [facility] BUN 13 6 - 25 mg/dL [facility] Creatinine 0.73(L) 0.80 - 1.30 mg/dL [facility] Glucose 96 70 - 199 mg/dL [facility] Comment: Interpretive Data Fasting [...] Calcium 10.0 8.5 - 10.3 mg/dL [facility] Bilirubin, total 0.3 0.1 - 1.2 mg/dL [facility] Protein, pl 7.9 6.5 - 8.5 g/dL [facility] Albumin 4.5 3.5 - 5.0 g/dL [facility] Alk phos 95 40 - 130 Units/L [facility] ALT 27 7 - 55 Units/L [facility] AST 28 10 - 50 Units/L [facility] Blood 10/01/2023 4:55 PM CDT 10/01/2023 5:01 PM CDT Kip Del Rio MD LAB BLOOD ORDERABLES Final Result [facility] One [facility] Department [place] [address] * [facility] 360 CDx (10/01/2023 4:44 PM CDT) MSI-HIGH NOT DETECTED 10/07/2023 6:37 AM CDT [facility] Blood specimen (specimen) (Blood, Venous) 10/01/2023 4:44 PM CDT 10/02/2023 12:40 PM CDT Narrative This result has genomic variants that were not included in this document. Kip Del Rio MD LAB GENETIC TESTING Final Result [facility] [address] [place] [address] documented in this encounter Visit Diagnoses Diagnosis Primary cancer of right lower lobe of lung (HCC) documented in this encounter Care Teams Billing Auditor Relationship Specialty Start Date End Date Clara Stanley PA [address] [place] [address] PCP - General Nurse Practitioner 04/05/19 Jasper Canchola MD [address] [place] [id number] Surgeon Thoracic Surgery 05/11/19 Alexis Lopez MD [address] [address] Frame Trimmer Pulmonary Disease 05/11/19 Kip Del Rio MD [address] [place] [address] Medical Oncologist/Internal Medicine Nurse Practitioner Hematology and Oncology 05/11/19 Jacob Flynn MD [address] [place] [address] Radiation Oncologist Radiation Oncology 05/25/19 Renetta Ballesteros NP [address] [place] [address] Nurse Practitioner Radiation Oncology 06/11/22 documented as of this encounter
--- OUTSIDE RECORDS SUMMARY | 2024-03-02 04:19 | XMS_ITS | Encounter Summary ---
Author Organization [facility] Address [address] [place] [address] Phone Care Team Providers Care Calender Machine Operator Helper Name Role Phone Clara Stanley Primary Care Provider + Jasper Canchola MD Unavailable Alexis Lopez MD Unavailable Kip Del Rio MD Unavailable [phone] Jacob Flynn MD Unavailable Renetta Ballesteros NP Unavailable Encounter Details Date Type Department Care Team (Late st Contact Info) Description 01/21/2024 8:45 AM CLOTH CUTTER Lab [facility] Oncology Lab [address] [facility] Floor [address] [place] [address] Neuroendocrine carcinoma of lung (HCC); Secondary malignant [...] file Legal Sex Male 1:17 AM CLOTH CUTTER Gender Identity Not on file Sexual [...] 01/22/2024 documented in this encounter Care Teams Calender Machine Operator Helper Relationship Specialty Start Date End Date Clara Stanley PA [address] [place] [address] PCP - General Nurse Practitioner 04/05/19 Jasper Canchola MD [address] [place] [address] Surgeon Thoracic Surgery 05/11/19 Alexis Lopez MD [address] [address] Retail Sales Lead Pulmonary Disease 05/11/19 Kip Del Rio MD [address] [place] [address] Medical Oncologist/Reproductive Healthcare Assistant Hematology and Oncology 05/11/19 Jacob Flynn MD [address] [place] [address] Radiation Oncologist Radiation Oncology 05/25/19 Renetta Ballesteros NP [address] [facility] [address] [place] [address] Nurse Practitioner Radiation Oncology 06/11/22 documented as of this encounter
--- OUTSIDE RECORDS SUMMARY | 2024-03-02 04:19 | XMS_ITS | Encounter Summary ---
Author Organization [facility] Address [address] [place] [address] Phone Care Team Providers Care Contract Law Specialist Name Role Phone Clara Stanley Primary Care Provider + Jasper Canchola MD Unavailable Alexis Lopez MD Unavailable Kip Del Rio MD Unavailable [phone] Jacob Flynn MD Unavailable Renetta Ballesteros NP Unavailable Encounter Details Date Type Department Care Team (Late st Contact Info) Description 10/02/2023 Telephone [facility] Oncology [address] 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 He will see Dr. Del Rio for follow-up on 10/22/23. Jose Ames, We have you scheduled for a CT guided biopsy of the liver on Monday, October 16, 2023. Arrival will be 7:45am at [facility] Admitting Office. This is located inside [facility] at [address] [place] [address]. [id number]. Park in the [facility], walk over in th walkway and report toOutpatient Admitting at 7:45am. Please see the instructions below and call our office at [phone] to confirm this appointment. CT PRE-BIOPSY INSTRUCTIONS [facility] 1) Do not eat or drink anything 6 hours before the appointment You can take your normal medicationswith sips of water. 2) Pack a small overnight bag (in case observation/admission is needed). 3) Have a cement truck driver (to and from the procedure) that will stay with you overnight after the procedure to monitor for bleeding/symptoms post-procedure. 4) Expect to be here for at least 4 hours from start of procedure to end of recovery period. Imelda Ramires [phone] documented in this encounter Plan of Treatment Not on file documented as of this encounter Visit Diagnoses Not on filedocumented in this encounter Care Teams Contract Law Specialist Relationship Specialty Start Date End Date Clara Stanley PA [address] [place] [address] PCP - General Nurse Practitioner 04/05/19 Jasper Canchola MD [address] [place] [address] Surgeon Thoracic Surgery 05/11/19 Alexis Lopez MD [address] [address] Gambling Supervisor Pulmonary Disease 05/11/19 Kip Del Rio MD [address] [place] [address] Medical Oncologist/Folding Rules Printing Machine Operator Hematology and Oncology 05/11/19 Jacob Flynn MD [address] [place] [address] Radiation Oncologist Radiation Oncology 05/25/19 Renetta Ballesteros NP [address] [place] [address] Nurse Practitioner Radiation Oncology 06/11/22 documented as of this encounter
--- OUTSIDE RECORDS SUMMARY | 2024-03-02 04:19 | XMS_ITS | Encounter Summary ---
Author Organization [facility] Address [address] [place] [address] Phone Care Team Providers Care Floorleader Name Role Phone Clara Stanley Primary Care Provider + Jasper Canchola MD Unavailable Alexis Lopez MD Unavailable Kip Del Rio MD Unavailable Jacob Flynn MD Unavailable Renetta Ballesteros NP Unavailable Encounter Details Date Type Department Care Team (Late st Contact Info) Description 10/21/2023 Orders Only [facility] Oncology [address] [facility] Advanced Medicine 7th [place] [address] [place] [id number] Deb Bryant [facility] Social History Tobacco Use Types Packs/Day [...] on file Legal 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 Gender Identity Not on file Sexual Orientation Straight 09/22/2019 8: 21 PM CDT 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 on file Not on file documented as of this encounter Plan of Treatment Not on file documented as of this encounter Visit Diagnoses Not on filedocumented in this encounter Care Teams Floorleader Relationship Specialty Start Date End Date Clara Stanley PA [address] [place] [address] PCP - General Nurse Practitioner 04/05/19 Jasper Canchola MD [address] [place] [address] Surgeon Thoracic Surgery 05/11/19 Alexis Lopez MD [address] [address] Air Hammer Operator Pulmonary Disease 05/11/19 Kip Del Rio MD [address] [place] [address] Medical Oncologist/Housekeeper And Laundry Assistant Hematology and Oncology 05/11/19 Jacob Flynn MD [address] [place] [address] Radiation Oncologist Radiation Oncology 05/25/19 Renetta Ballesteros NP [address] [place] [address] Nurse Practitioner Radiation Oncology 06/11/22 documented as of this encounter
--- OUTSIDE RECORDS SUMMARY | 2024-03-02 04:19 | XMS_ITS | Encounter Summary ---
Author Organization [facility] Address [address] [place] [address] Care Team Providers Care Coconut Candy Maker Name Role Phone Clara Stanley Primary Care Provider + Jasper Canchola MD Unavailable Alexis Lopez MD Unavailable [phone] Kip Del Rio MD Unavailable Jacob Flynn MD Unavailable Renetta Ballesteros NP Unavailable Encounter Details Date Type Department Care Team (Late st Contact Info) Description 12/24/2023 12:30 PM CDT Lab [facility] [place] - Lab Collection [address] [facility] Floor [address] [place] [address] Neuroendocrine carcinoma of lung (HCC); Secondary malignant [...] on file Legal Sex Male 1:17 AM CONE RUNNER Gender Identity Not on file Sexual Orientation [...] Rio MD LAB BLOOD ORDERABLES Final Result [facility] Department [place] [address] * Comprehensive metabolic panel (12/24/2023 12:27 PM CDT) Sodium 140 135 - 145 mmol/L Potassium, pl 4.2 3.3 - 4.9 mmol/L [facility] Chloride 102 97 - 110 mmol/L [facility] CO2 32 22 - 32 mmol/L [facility] Anion gap 6 2 - 15 mmol/L [facility] BUN 16 6 - 25 mg/dL [facility] Creatinine 0.87 0.80 - 1.30 mg/dL [facility] Glucose 98 70 - 199 mg/dL [facility] Comment: Interpretive Data Fasting glucose [...] 2022. Calcium 10.1 8.5 - 10.3 mg/dL [facility] Bilirubin, total 0.4 0.1 - 1.2 mg/dL [facility] Protein, pl 7.8 6.5 - 8.5 g/dL [facility] Albumin 4.4 3.5 - 5.0 g/dL [facility] Alk phos 83 40 - 130 Units/L [facility] ALT 15 7 - 55 Units/L [facility] AST 21 10 - 50 Units/L [facility] Blood 12/24/2023 12:2 7 PM CDT 12/24/2023 12:34 PM CDT Kip Del Rio MD LAB BLOOD ORDERABLES Final Result [facility] Department [place] [address] * (ABNORMAL) Differential, auto (12/24/2023 12:23 PM CDT) Neutrophil abs 5.0 1.5 - 6.5 K/cumm Comment:Testing performed by : [facility]e [facility], [address] [place] [phone] Lymphocyte abs 1.4 0.8 - 3.3 K/cumm CERNER BJ Comment:Testing performed by : [facility], [address] [place] [phone] Monocyte abs 1.1(H) 0.2 - 0.8 K/cumm CERNER BJ Comment:Testing performed by : [facility], [address] [place] [phone] Eosinophil abs 0.2 0.0 - 0.5 K/cumm CERNER BJ Comment:Testing performed by : [facility], [address] [place] [phone] Basophil abs 0.1 0.0 - 0.1 K/cumm CERNER BJ Comment:Testing performed by : [facility], [address] [place] [phone] Neutrophil pct 63.8 % C[facility]ER BJ Comment: Interpretive Data Percent cell count reference ranges are not reported, since discordance with absolute values may lead to misinterpretation of CBC data. Current Interpretive Data was last revised on 2017. Testing performed by: [facility], [address] [place] [phone] Lymphocyte pct 18.3 % SEJAL HEARN Comment: Interpretive Data Percent cell count reference ranges are not reported, since discordance with absolute values may lead to misinterpretation of CBC data. Current Interpretive Data was last revised on 2017. Testing performed by: [facility], [address] [place] [phone] Monocyte pct 14.3 % SEJ[facility] HEARN Comment: Interpretive Data Percent cell count reference ranges are not reported, since discordance with absolute values may lead to misinterpretation of CBC data. Current Interpretive Data was last revised on 2017. Testing performed by: [facility], [address] [place] [phone] Eosinophil pct 2.7 % [facility] HEARN Comment: Interpretive Data Percent cell count reference ranges are not reported, since discordance with absolute values may lead to misinterpretation of CBC data. Current Interpretive Data was last revised on 2017. Testing performed by: [facility], [address] [place] [phone] Basophil pct 0.9 % SEJAL HEARN Comment: Interpretive Data Percent cell count reference ranges are not reported, since discordance with absolute values may lead to misinterpretation of CBC data. Current Interpretive Data was last revised on 2017. Testing performed by: [facility], [address] [place] [phone] Blood 12/24/2023 12:2 3 PM CDT 12/24/2023 12:31 PM CDT us Kip Del Rio MD LAB BLOOD ORDERABLES Final Result [facility] Department [place] [address] * (ABNORMAL) CBC with auto differential (12/24/2023 12:23 PM CDT) WBC 7.8 3.8 - 9.9 K/cumm Comment:Testing performed by : [facility], [address] [place] [address] Hgb 14.0 13.0 - 17.5 g/dL CERNER BJ Comment:Testing performed by : [facility], [address] [place] [address] Hct 42.5 38.9 - 50.3 % CERNER BJ Comment:Testing performed by : [facility], [address] [place] [address] Plt 198 150 - 400 K/cumm CERNER BJ Comment:Testing performed by : [facility], [address] [place] [address] MPV 9.7 6.8 - 10.4 fL CERNER BJ Comment:Testing performed by : [facility], [address] [place] [address] RBC 4.57 4.30 - 5.80 M/cumm CERNER BJ Comment:Testing performed by : [facility], [address] [place] [address] MCV 93.1 81.3 - 96.4 fL CERNER BJ Comment:Testing performed by : [facility], [address] [place] [address] MCH 30.7 27.1 - 33.3 pg CERNER BJ Comment:Testing performed by : [facility], [address] [place] [address] MCHC 33.0 32.3 - 35.7 g/dL CERNER BJ Comment:Testing performed by : [facility], [address] [place] [address] RDW CV 17.3(H) 11.1 - 14.9 % CERNER BJ Comment:Testing performed by : [facility], [address] [place] [address] NRBC abs 0.00 0.00 - 0.01 K/cumm [facility] Comment:Testing performed by : [facility]e [facility], [address] [place] [address] Blood 12/24/2023 12:2 3 PM CDT 12/24/2023 12:31 PM CDT Kip Del Rio MD LAB BLOOD ORDERABLES Final Result Performing Organization Address City/State/[facility] Co de Phone Number [facility] Department [place] [address] documented in this encounter Visit Diagnoses Diagnosis 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 documented in this encounter Care Teams Coconut Candy Maker Relationship Specialty Start Date End Date Clara Stanley PA [address] [place] [address] PCP - General Nurse Practitioner 04/05/19 Jasper Canchola MD [address] [place] [address] Surgeon Thoracic Surgery 05/11/19 Alexis Lopez MD [address] [address] Technical Agronomist Pulmonary Disease 05/11/19 Kip Del Rio MD [address] [place] [address] Medical Oncologist/Medic Technician Hematology and Oncology 05/11/19 Jacob Flynn MD [address] [place] [address] Radiation Oncologist Radiation Oncology 05/25/19 Renetta Ballesteros NP [address] [facility] [address] [place] [address] Nurse Practitioner Radiation Oncology 06/11/22 documented as of this encounter
--- OUTSIDE RECORDS SUMMARY | 2024-03-02 04:19 | XMS_ITS | Encounter Summary ---
Author Organization [facility] Healthcare Address [address] [place] [address] Care Team Providers Care Software Qa System Specialist Name Role Phone Clara Stanley Primary Care Provider + Jasper Canchola MD Unavailable Alexis Lopez MD Unavailable Kip Del Rio MD Unavailable Jacob Flynn MD Unavailable Renetta Ballesteros NP Unavailable Encounter Details Date Type Department Care Team (Late st Contact Info) Description 06/25/[address] 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 TAX EVALUATOR Gender Identity Not on file Sexual Orientation [...] on filedocumented in this encounter Care Teams Software Qa System Specialist Relationship Specialty Start Date End Date Clara Stanley PA [address] [place] [address] PCP - General Nurse Practitioner 04/05/19 Jasper Canchola MD [address] [place] [address] Surgeon Thoracic Surgery 05/11/19 Alexis Lopez MD [address] [place] [address] [place] [address] Sheet Ironworker Pulmonary Disease 05/11/19 [place] [address] [place] [address] [place] [address] Medical Oncologist/Dope Dry House Operator Hematology and Oncology 05/11/19 Jacob Flynn MD [address] [facility] [address] [place], [place] [address] Radiation Oncologist Radiation Oncology 05/25/19 Renetta Ballesteros NP [address] [facility] [address] [place] [address] Nurse Practitioner Radiation Oncology 06/11/22 documented as of this encounter
--- OUTSIDE RECORDS SUMMARY | 2024-03-02 04:19 | XMS_ITS | Encounter Summary ---
Author Organization [facility] Address [address] [place] [address] Care Team Providers Care Scanning Clerk Name Role Phone Clara Stanley Primary [...] Pelvis W Contrast Kip Del Rio MD [address] [facility] [address] [place] [address] Phone: tel: fax: [address] [phone] Referral ID Status Reason Start Date Expiration Date Visits Re quested Visits Authorized [id number] Closed 01/20/2024 02/18/2025 1 1 [employer]OX[employer] Reason for Visit * Diagnostic Imaging (Routine) - Closed Specialty Diagnoses / Procedures Referred By Contac t Referred To Contact Radiology Diagnoses 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) Procedures CT Chest Abdomen Pelvis W Contrast Kip Del Rio MD [address] [facility] [address] [place] [address] Phone: tel: fax: [address] [phone] Referral ID Status Reason Start Date Expiration Date Visits Re quested Visits Authorized [id number] Closed 01/20/2024 02/18/2025 1 1 Encounter Details Date Type Department Care Team (Latest Contact Info) Description 02/16/2024 4:50 PM SUPER[employer]ERR[employer]OX[employer] - 02/16/2024 11:59 PM SUPERVISOR TRANSFERRING [employer]OXING Hospital Encounter [facility] [address] [place] [address] Secondary malignant neoplasm of mediastinal lymph node [...] file 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TRANSFERRING AND BOXING Gender Identity Not on file Sexual Orientation [...] Read Routine (OP Routine) 02/16/2024 6:28 PM SUPERVISOR TRANSFERRING [employer] BOXING 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 ??No significant change in posttreatment changes [...] Vikki Way M.D. Narrative 02/17/2024 12:53 PM SUPERVIS[employer]ERR[employer]OX[employer] EXAMINATION: ??Computed tomography of the chest, abdomen [...] 1 dose Contrast Given 02/16/2024 6:23 PM SUPERVISOR [employer]SFERRING [employer] BOXING 95 mL documented in this encounter Orders Medications Ordered That Vikram ht Not Have Been Administered Count Last Ordered Date First Ordered Date ioversoL (OPTIRAY 350) syringe 100 mL 1 05/2023 documented in this encounter Care Teams Scanning Clerk Relationship Specialty Start Date End Date Clara Stanley PA [facility] [place] [address] PCP - General Nurse Practitioner 04/05/19 Jasper Canchola MD [facility] [place] [address] Surgeon Thoracic Surgery 05/11/19 Alexis Lopez MD [address] [address] Bagging Machine Operator Pulmonary Disease 05/11/19 Kip Del Rio MD [address] [place] [address] Medical Oncologist/Dye Colorist Formulator Hematology and Oncology 05/11/19 Jacob Flynn MD [address] [place] [address] Radiation Oncologist Radiation Oncology 05/25/19 Renetta Ballesteros NP [address] [place] [address] Nurse Practitioner Radiation Oncology 06/11/22 documented as of this encounter
--- OUTSIDE RECORDS SUMMARY | 2024-03-02 04:19 | XMS_ITS | Encounter Summary ---
Author Organization [facility] Address [address] [place] [address] Phone Care Team Providers Care Cylinder Block Hole Reliner Name Role Phone Clara Stanley Primary Care Provider + Jasper Canchola MD Unavailable Alexis Lopez MD Unavailable [phone] Kip Del Rio MD Unavailable [phone] Jacob Flynn MD Unavailable Renetta Ballesteros NP Unavailable [phone] Encounter Details Date Type Department Care Team (Late st Contact Info) Description 12/24/2023 12:15 PM CDT Lab [facility] Oncology Lab [address] [facility] Floor [address] [place] [address] Social History Tobacco Use Types Packs/Day Years [...] on file Legal Sex Male 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 SAS BI DEVELOPER Gender Identity Not on file Sexual Orientation Straight 09/22/2019 8: 21 PM CDT 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 on file Not on file documented as of this encounter Plan of Treatment Not on file documented as of this encounter Visit Diagnoses Not on filedocumented in this encounter Care Teams Cylinder Block Hole Reliner Relationship Specialty Start Date End Date Clara Stanley PA [address] [place] [address] PCP - General Nurse Practitioner 04/05/19 Jasper Canchola MD [address] [place] [address] Surgeon Thoracic Surgery 05/11/19 Alexis Lopez MD [address] [address] Rfid Specialist Pulmonary Disease 05/11/19 Kip Del Rio MD [address] [place] [address] Medical Oncologist/Pediatric Urologist Hematology and Oncology 05/11/19 Jacob Flynn MD [address] [place] [address] Radiation Oncologist Radiation Oncology 05/25/19 Renetta Ballesteros NP [address] [place] [address] Nurse Practitioner Radiation Oncology 06/11/22 documented as of this encounter
--- OUTSIDE RECORDS SUMMARY | 2024-03-02 04:19 | XMS_ITS | Encounter Summary ---
Author Organization [facility] Address [address] [place] [address] Phone Care Team Providers Care Stainless Steel Finisher Name Role Phone Clara Stanley Primary Care Provider + Jasper Canchola MD Unavailable Alexis Lopez MD Unavailable Kip Del Rio MD Unavailable Jacob Flynn MD Unavailable Renetta Ballesteros NP Unavailable Encounter Details Date Type Department Care Team (Late st Contact Info) Description 12/03/2023 Orders Only [facility] Oncology [address] [facility] Advanced Medicine 7th [place] [address] [place] [address] Kip Del Rio MD [address] [facility] [address] [place] [address] Social History Tobacco Use Types Packs/Day Years [...] on file Legal Sex Male 1:17 AM THERAPEUTIC RECREATION SPECIALIST Gender Identity Not on file Sexual Orientation Straight 09/22/2019 8: 21 PM CDT 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 on file Not on file documented as of this encounter Plan of Treatment Not on file documented as of this encounter Visit Diagnoses Not on filedocumented in this encounter Care Teams Stainless Steel Finisher Relationship Specialty Start Date End Date Clara Stanley PA [address] [place] [address] PCP - General Nurse Practitioner 04/05/19 Jasper Canchola MD [address] [place] [address] Surgeon Thoracic Surgery 05/11/19 Alexis Lopez MD [address] [address] Chair Trimmer Pulmonary Disease 05/11/19 Kip Del Rio MD [address] [facility] [address] [place] [address] Medical Oncologist/Childcare Administrator Hematology and Oncology 05/11/19 Jacob Flynn MD [address] [place] [address] Radiation Oncologist Radiation Oncology 05/25/19 Renetta Ballesteros NP [address] [facility] [address] [place] [address] Nurse Practitioner Radiation Oncology 06/11/22 documented as of this encounter
--- OUTSIDE RECORDS SUMMARY | 2024-03-02 04:19 | XMS_ITS | Encounter Summary ---
Author Organization [facility] Address [address] [place] [address] Phone Care Team Providers Care Acid Remover Name Role Phone Clara Stanley Primary Care Provider + Jasper Canchola MD Unavailable Alexis Lopez MD Unavailable Kip Del Rio MD Unavailable Jacob Flynn MD Unavailable Renetta Ballesteros NP Unavailable Encounter Details Date Type Department Care Team (Late st Contact Info) Description 02/18/2024 9:30 AM BREAK OUT WORKER Lab [facility] Oncology Lab [address] [facility] Floor 5 [place] [address] Neuroendocrine carcinoma of lung (HCC); Secondary malignant [...] on file Legal Sex Male 1:17 AM BREAK OUT WORKER Gender Identity Not on file Sexual [...] 02/18/2024 documented in this encounter Care Teams Acid Remover Relationship Specialty Start Date End Date Clara Stanley PA [address] [place] [address] PCP - General Nurse Practitioner 04/05/19 Jasper Canchola MD [address] [place] [address] Surgeon Thoracic Surgery 05/11/19 Aelxis Lopez MD [address] [address] Book Salesman Pulmonary Disease 05/11/19 Kip Del Rio MD [address] [place] [address] Medical Oncologist/Case Management Coordinator Hematology and Oncology 05/11/19 Jacob Flynn MD [address] [place] [address] Radiation Oncologist Radiation Oncology 05/25/19 Renetta Ballesteros NP 4921 [facility] 8224 [place] [address] Nurse Practitioner Radiation Oncology 06/11/22 documented as of this encounter
--- OUTSIDE RECORDS SUMMARY | 2024-03-02 04:19 | XMS_ITS | Encounter Summary ---
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) Procedures CT Chest Abdomen Pelvis W Contrast Kip Del Rio MD 0[address] [facility] 8500 [place] [address] Phone: tel: fax: [address] [address] Referral ID Status Reason Start Date Expiration Date Visits Re quested Visits Authorized [id number] Closed 11/11/2023 12/10/2024 1 1 Encounter Details Date Type Department Care Team (Late st Contact Info) Description 11/12/2023 3:40 PM CDT Office Visit [facility] Oncology [address] [facility] 7th [place] [address] [place] [id number] Kip Del Rio MD 0[address] [facility] [address] [place] [address] Primary cancer of right lower lobe of [...] file 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 Genomics: Cell-free DNA through [id number] 10/01/2023: FGFR2 N235K (0.2%), ARTIS [id number] (0.2%). MSI-High Not Detected. Treatment: Right lower [...] Units total) by mouth, Disp: , Rfl: [id number] (Trelegy Ellipta) 100-62.5-25 mcg inhaler, Inhale 1 [...] this plan of care. Cheri Leonard DNP, [facility] Division of Oncology [facility] in [place] Cosigned by Kip Del Rio MD at [...] Anion gap 6 2 - 15 mmol/L [facility] BUN 16 6 - 25 mg/dL [facility] Creatinine 0.87 0.80 - 1.30 mg/dL [facility] Glucose 98 70 - 199 mg/dL [facility] Comment: Interpretive Data Fasting glucose >/= 126 [...] 2022. Calcium 10.1 8.5 - 10.3 mg/dL [facility] Bilirubin, total 0.4 0.1 - 1.2 mg/dL [facility] Protein, pl 7.8 6.5 - 8.5 g/dL [facility] Albumin 4.4 3.5 - 5.0 g/dL [facility] Alk phos 83 40 - 130 Units/L [facility] ALT 15 7 - 55 Units/L [facility] AST 21 10 - 50 Units/L [facility] Blood 12/24/2023 12:2 7 PM CDT 12/24/2023 12:34 PM CDT us Kip Del Rio MD LAB BLOOD ORDERABLES Final Result [facility] One [facility] [place] [address] * (ABNORMAL) CBC with auto differential (12/24/2023 12:23 PM CDT) WBC 7.8 3.8 - 9.9 K/cumm Comment:Testing performed by : [facility] Cancer [facility] Heme [facility], [address] [place] [address], [place] [address] Hgb 14.0 13.0 - 17.5 g/dL [facility] BJ Comment:Testing performed by : [facility]e [facility], [address] [place] [address] Hct 42.5 38.9 - 50.3 % [facility] Comment:Testing performed by : [facility]e [facility], [address] [place], [place] [phone] Plt 198 150 - 400 K/cumm [facility] BJ Comment:Testing performed by : [facility], [address] [place], [place] [phone] MPV 9.7 6.8 - 10.4 fL [facility]J Comment:Testing performed by : [facility], [address] [place], [place] [phone] RBC 4.57 4.30 - 5.80 M/cumm [facility] BJ Comment:Testing performed by : [facility], [address] [place], [place] [phone] MCV 93.1 81.3 - 96.4 fL [facility] BJ Comment:Testing performed by : [facility]e [facility], [address] [place] [address] MCH 30.7 27.1 - 33.3 pg [facility] BJ Comment:Testing performed by : [facility], [address] [place] [address] MCHC 33.0 32.3 - 35.7 g/dL [facility] BJ Comment:Testing performed by : [facility]e [facility], [address] [place] [address] RDW CV 17.3(H) 11.1 - 14.9 % [facility]J Comment:Testing performed by : [facility]e [facility], [address] [place] [address] NRBC abs 0.00 0.00 - 0.01 K/cumm [facility] BJ Comment:Testing performed by : [facility]e [facility], [address] [place] [address] Blood 12/24/2023 12:2 3 PM CDT 12/24/2023 12:31 PM CDT us Kip Del Rio MD LAB BLOOD ORDERABLES Final Result [facility] One [facility] Department [place] [address] * CT Chest Abdomen Pelvis W Contrast [...] - 145 mmol/L Comment:Testing performed by : [facility], [address] [place] [phone] Potassium, pl 4.7 3.3 - 4.9 mmol/L [facility] Comment:Testing performed by : [address] [address] Chloride 101 97 - 110 mmol/L [facility] BJ Comment:Testing performed by : [facility], [address] [place] [phone] CO2 29 22 - 32 mmol/L [facility]J Comment:Testing performed by : [address] [address] Anion gap 6 2 - 15 mmol/L [facility] Comment:Testing performed by : [address] [address] BUN 14 6 - 25 mg/dL [facility] Comment:Testing performed by : [facility], [address] [place] [phone] Creatinine 0.75(L) 0.80 - 1.30 mg/dL [facility] Comment:Testing performed by : [address] [address] Glucose 97 70 - 199 mg/dL [facility] Comment: Interpretive Data Fasting glucose >/= 126 [...] was last revised 2022. Testing performed by: [facility], [address] [place] [phone] Calcium 10.0 8.5 - 10.3 mg/dL [facility] Comment:Testing performed by : [facility], [address] [place] [phone] Bilirubin, total 0.5 0.1 - 1.2 mg/dL [facility] Comment:Testing performed by : [facility], [address] [place] [phone] Protein, pl 7.7 6.5 - 8.5 g/dL [facility] Comment:Testing performed by : [address] [address] Albumin 4.4 3.5 - 5.0 g/dL [facility] Comment:Testing performed by : [facility], [address] [place] [phone] Alk phos 91 40 - 130 Units/L [facility] Comment:Testing performed by : [address] [address] ALT 25 7 - 55 Units/L [facility] Comment:Testing performed by : [address] [address] AST 24 10 - 50 Units/L [facility] Comment:Testing performed by : [facility], [address] [place] [phone] Blood 11/20/2023 12:5 8 PM CDT 11/20/2023 1:03 PM CDT us Kip Del Rio MD LAB BLOOD ORDERABLES Final Result [facility] One [facility] Department [place] [address] * (ABNORMAL) CBC with auto differential (11/20/2023 12:58 PM CDT) WBC 10.4(H) 3.8 - 9.8 K/cumm Comment:Testing performed by : [facility], [address] [place], [place] [phone] Hgb 13.8 13.8 - 17.2 g/dL [facility]J Comment:Testing performed by : [place] [phone] Hct 41.1 40.7 - 50.3 % [facility] Comment:Testing performed by : [place] [phone] Plt 229 140 - 440 K/cumm [facility]J Comment:Testing performed by : [place] [address] MPV 9.4 6.8 - 10.4 fL [facility] Comment:Testing performed by : [place] [phone] RBC 4.53 4.50 - 5.70 M/cumm [facility] Comment:Testing performed by : [place] [phone] MCV 90.7 80.0 - 97.6 fL [facility] Comment:Testing performed by : [place] [phone] MCH 30.4 26.7 - 33.7 pg [facility] Comment:Testing performed by : [place] [phone] MCHC 33.5 32.7 - 35.5 g/dL [facility] Comment:Testing performed by : [place] [phone] RDW CV 15.2(H) 11.8 - 14.6 % [facility] Comment:Testing performed by : [place] [phone] NRBC abs 0.01 0.00 - 0.01 K/cumm [facility] Comment:Testing performed by : [address] [address] Blood 11/20/2023 12:5 8 PM CDT 11/20/2023 1:03 PM CDT Kip Del Rio MD LAB BLOOD ORDERABLES Final Result [facility] One [facility] [place] [address] documented in this encounter Visit Diagnoses Diagnosis [...] 11/12/2023 documented in this encounter Care Teams Data Collection Specialist Relationship Specialty Start Date End Date Clara Stanley PA [address] [place] [address] PCP - General Nurse Practitioner 04/05/19 Jasper Canchola MD [address] [place] [address] Surgeon Thoracic Surgery 05/11/19 Alexis Lopez MD [address] [address] Packager Head Pulmonary Disease 05/11/19 Kip Del Rio MD 4921 [facility] 8056 [place] [address] Medical Oncologist/Lamp Replacer Hematology and Oncology 05/11/19 Jacob Flynn MD 4921 [facility] # [address] LL [address] [place] [address] Radiation Oncologist Radiation Oncology 05/25/19 Renetta Ballesteros NP 49[address] [facility] LL [address] [place] [address] Nurse Practitioner Radiation Oncology 06/11/22 documented as of this encounter
--- OUTSIDE RECORDS SUMMARY | 2024-03-02 04:19 | XMS_ITS | Encounter Summary ---
Author Organization [facility] Address [address] [place] [address] Phone Care Team Providers Care Six Horse Hitch Driver Name Role Phone Clara Stanley Primary Care Provider + Jasper Canchola MD Unavailable Alexis Lopez MD Unavailable Kip Del Rio MD Unavailable Jacob Flynn MD Unavailable Renetta Ballesteros NP Unavailable Encounter Details Date Type Department Care Team (Late st Contact Info) Description 10/22/[address] 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 Gender Identity Not on file Sexual [...] (HCC) documented in this encounter Care Teams Six Horse Hitch Driver Relationship Specialty Start Date End Date Clara Stanley PA [address] [place] [address] PCP - General Nurse Practitioner 04/05/19 Jasper Canchola MD [address] [place] [address] Surgeon Thoracic Surgery 05/11/19 Alexis Lopez MD [address] [address] Formstone Fitter Pulmonary Disease 05/11/19 Kip Del Rio MD 49[address] [facility] [address] [place] [address] Medical Oncologist/Holistic Specialist Hematology and Oncology 05/11/19 Jacob Flynn MD [address] [facility] [address] # [address] LL [address] [place] [address] Radiation Oncologist Radiation Oncology 05/25/19 Renetta Ballesteros NP [address] [place] [address] Nurse Practitioner Radiation Oncology 06/11/22 documented as of this encounter
--- OUTSIDE RECORDS SUMMARY | 2024-03-02 04:19 | XMS_ITS | Encounter Summary ---
Author Organization [facility] Address [address] [place] [address] Phone Care Team Providers Care Ticket Taker Name Role Phone Clara Stanley Primary Care Provider + Jasper Canchola MD Unavailable Alexis Lopez MD Unavailable Kip Del Rio MD Unavailable [phone] Jacob Flynn MD Unavailable Renetta Ballesteros NP Unavailable Reason for Referral * Diagnostic Imaging (Routine) - Closed Specialty Diagnoses / Procedures Referred By Contac t Referred To Contact Radiology Diagnoses Primary cancer of right lower lobe of lung (HCC) Liver lesion Procedures US Guided Biopsy Liver Consult to Radiology for Biopsy Kip Del Rio MD 7879 [facility] 7023 [place] [address] Phone: tel: fax: [address] [address] Referral ID Status Reason Start Date Expiration Date Visits Re quested Visits Authorized [id number] Closed 10/01/2023 10/30/2024 1 1 Reason for Visit * Oncology (Routine) - Authorized Specialty Diagnoses / Procedures Referred By Contac t Referred To Contact Oncology Diagnoses Primary cancer of right lower lobe of lung (HCC) Jacob Flynn MD [address] [facility] # LL LL [address] [place] [address] Phone: tel: fax: Kip Del Rio MD 4921 [facility] [address] [place] [address] Phone: tel: fax: Referral ID Status Reason Start Date Expiration Date Visits Requested Visits Authorized [id number] Authorized Specialty Services Required 09/25/2023 03/15/2024 99 99 Encounter Details Date Type Department Care Team (Late st Contact Info) Description 10/01/2023 3:00 PM CDT [facility] 49[address] [facility] 7th [place] [address] [place] [address] Kip Del Rio MD 4921 [facility] [address] [place] [address] Primary cancer of right lower lobe of [...] on file 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 The [...] placed in formalin and submitted to the mud boss service for delivery to Surgical Pathology. The [...] Momo Garcia M.D. Kip Del Rio MD [facility] US PROCEDURES Final Re sult * (ABNORMAL) Comprehensive metabolic panel (10/01/2023 4:55 PM CDT) Sodium 140 135 - 145 mmol/L Potassium, pl 4.0 3.3 - 4.9 mmol/L [facility] Chloride 103 97 - 110 mmol/L [facility] CO2 28 22 - 32 mmol/L [facility] Anion gap 9 2 - 15 mmol/L [facility] BUN 13 6 - 25 mg/dL [facility] Creatinine 0.73(L) 0.80 - 1.30 mg/dL [facility] Glucose 96 70 - 199 mg/dL [facility] Comment: Interpretive Data Fasting glucose >/= 126 [...] 2022. Calcium 10.0 8.5 - 10.3 mg/dL [facility] Bilirubin, total 0.3 0.1 - 1.2 mg/dL [facility] Protein, pl 7.9 6.5 - 8.5 g/dL [facility] Albumin 4.5 3.5 - 5.0 g/dL [facility] Alk phos 95 40 - 130 Units/L [facility] ALT 27 7 - 55 Units/L [facility] AST 28 10 - 50 Units/L [facility] Blood 10/01/2023 4:55 PM CDT 10/01/2023 5:01 PM CDT us Kip Del Rio MD LAB BLOOD ORDERABLES Final Result [facility] One [facility] [place] [address] * (ABNORMAL) CBC with auto differential (10/01/2023 4:55 PM CDT) [facility] WBC 10.6(H) 3.8 - 9.9 K/cumm Hgb 14.2 13.0 - 17.5 g/dL [facility] Hct 43.3 38.9 - 50.3 % [facility] Plt 247 150 - 400 K/cumm [facility] MPV 12.1 9.1 - 12.3 fL [facility] RBC 4.92 4.30 - 5.80 M/cumm [facility] MCV 88.0 81.3 - 96.4 fL [facility] MCH 28.9 27.1 - 33.3 pg [facility] MCHC 32.8 32.3 - 35.7 g/dL [facility] RDW CV 13.4 11.1 - 14.9 % [facility] RDW SD 43.4 35.7 - 48.1 fL [facility] NRBC abs 0.00 0.00 - 0.01 K/cumm [facility] Blood 10/01/2023 4:55 PM CDT 10/01/2023 5:01 PM CDT Kip Del Rio MD LAB BLOOD ORDERABLES Final Result Performing Organization Address City/[facility] Co de Phone Number [facility] Department [place] [address] * aPTT (10/01/2023 4:55 PM CDT) [facility] aPTT 33 28 - 38 sec Comment: Interpretive Data Heparin therapeutic range: 66.0 - 100.0 seconds. Range based on correlation with therapeutic heparin activity range of 0.3 - 0.7 Units/mL. Current interpretive data was last revised on 2022. Blood 10/01/2023 4:55 PM CDT 10/01/2023 5:01 PM CDT Kip Del Rio MD LAB BLOOD ORDERABLES Final Result Performing Organization Address City/[facility] Co de Phone Number [facility] Department [place] [address] * Protime-INR (10/01/2023 4:55 PM CDT) Pathologist [facility] PT 10.6 9.7 - 13.0 sec INR [...] BLOOD ORDERABLES Final Result [facility] One [facility] Department [place] [address] * [facility] 360 CDx (10/01/2023 4:44 PM CDT) MSI-HIGH NOT DETECTED 10/07/2023 6:37 AM CDT [facility] ONCOL[facility]Y LAB Blood specimen (specimen) (Blood, Venous) 10/01/2023 4:44 PM CDT 10/02/2023 12:40 PM CDT Narrative This result has genomic variants that were not included in this document. Kip Del Rio MD LAB GENETIC TESTING Final Result [facility] ON[facility] [address] [place] [id number] documented in this encounter Visit Diagnoses Diagnosis [...] 10/01/2023 documented in this encounter Care Teams Ticket Taker Relationship Specialty Start Date End Date Clara Stanley PA [facility] [place] [address] PCP - General Nurse Practitioner 04/05/19 Jasper Canchola MD [address] [place] [address] Surgeon Thoracic Surgery 05/11/19 Alexis Lopez MD 4600 [facility] [address] [address] Plant Tour Guide Pulmonary Disease 05/11/19 Kip Del Rio MD 4921 [facility] [address] [place] [address] Medical Oncologist/Press Operator Apprentice Hematology and Oncology 05/11/19 Jacob Flynn MD [address] [facility] [address] LL [address] [place] [address] Radiation Oncologist Radiation Oncology 05/25/19 Renetta Ballesteros NP 4921 [facility] [address] [place] [address] Nurse Practitioner Radiation Oncology 06/11/22 documented as of this encounter
--- OUTSIDE RECORDS SUMMARY | 2024-03-02 04:20 | XMS_ITS | Encounter Summary ---
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) Procedures CT Chest Abdomen Pelvis W Contrast Renetta Ballesteros NP [address] [facility] [address] [place] [address] Phone: tel: fax: [address] [address] Referral ID Status Reason Start Date Expiration Date Visits Re quested Visits Authorized [id number] Closed 06/11/2022 07/11/2023 1 1 Reason for Visit * MRI/CAT/PET Scan (Routine) - Closed Specialty Diagnoses / Procedures Referred By Erik [email or web address] Referred To Contact Radiology Diagnoses Malignant neoplasm of lower lobe of right 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) Procedures CT Chest Abdomen Pelvis W Contrast Renetta Ballesteros, STEEL WOOL MACHINE OPERATOR 49[address] [facility] [address] [place] [address] Phone: tel: fax: [address] [phone] Referral ID Status Reason Start Date Expiration Date Visits Re quested Visits Authorized [id number] Closed 06/11/2022 07/11/2023 1 1 Encounter Details Date Type Department Care Team (Latest Contact Info) Description 09/18/2022 10:09 AM CDT - 09/18/2022 11:59 PM CDT Hospital Encounter [facility] [address] [place] [address] Malignant neoplasm of lower lobe [...] file 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 Renetta Ballesteros NP IMG CT PROCEDURES Final Result * POCT creatinine (09/18/2022 10:33 AM CDT) Creatinine POC 0.7 0.7 - 1.3 mg/dL [facility] Blood 09/18/2022 10:3 3 AM CDT 09/18/2022 10:33 AM CDT Kip Del Rio MD LAB POCT ORDERABLES - XIOMARA CE Final Result [facility] One [facility] Department [place] [address] documented in this encounter Visit Diagnoses Diagnosis [...] 08/2022 documented in this encounter Care Teams Vp Digital Marketing Relationship Specialty Start Date End Date Clara Stanley PA [address] [place] [address] PCP - General Nurse Practitioner 04/05/19 Jasper Canchola MD [address] [place] [address] Surgeon Thoracic Surgery 05/11/19 Alexis Lopez MD [address] [address] Sporting Goods Sales Associate Pulmonary Disease 05/11/19 Kip Del Rio MD [address] [email or web address] [address] [place] [address] Medical Oncologist/Glass Cleaning Machine Tender Hematology and Oncology 05/11/19 Jacob Flynn MD 49[address] [email or web address] [address] [place] [address] Radiation Oncologist Radiation Oncology 05/25/19 Renetta Ballesteros NP 49[address] [email or web address] [address] [facility] [address] [place] [address] Nurse Practitioner Radiation Oncology 06/11/22 documented as of this encounter
--- OUTSIDE RECORDS SUMMARY | 2024-03-02 04:20 | XMS_ITS | Encounter Summary ---
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) Procedures CT Chest Abdomen Pelvis W Contrast Jacob Flynn MD [address] [facility] [address] [place] [address] Phone: tel: fax: [address] [phone] Referral ID Status Reason Start Date Expiration Date Visits Re quested Visits Authorized [id number] Closed 11/24/2022 12/24/2023 1 1 Reason for Visit * MRI/CAT/PET Scan (Routine) - Closed Specialty Diagnoses / Procedures Referred By Contac t Referred To Contact Radiology Diagnoses Radiotherapy follow-up examination Primary cancer of right lower lobe of 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) Procedures CT Chest Abdomen Pelvis W Contrast Jacob Flynn MD [address] [facility] [address] [place] [address] Phone: tel: fax: [address] [phone] Referral ID Status Reason Start Date Expiration Date Visits Re quested Visits Authorized [id number] Closed 11/24/2022 12/24/2023 1 1 Encounter Details Date Type Department Care Team (Latest Contact Info) Description 12/25/2022 9:19 AM CDT - 12/25/2022 11:59 PM CDT Hospital Encounter [facility] [address] [place] [address] Radiotherapy follow-up examination; Primary cancer of [...] on file 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 Gender Identity Not on file Sexual Orientation [...] - DEVICE Final Result Performing Organization Address City/State/[facility] Co de Phone Number [facility] Department [place] [address] documented in this encounter Visit Diagnoses Diagnosis [...] 1 documented in this encounter Care Teams Pitch Filler Relationship Specialty Start Date End Date Clara Stanley PA [address] [place] [address] PCP - General Nurse Practitioner 04/05/19 Jasper Canchola MD [address] [place] [address] Surgeon Thoracic Surgery 05/11/19 Alexis Lopez MD [address] [address] Communications Assistant Pulmonary Disease 05/11/19 Kip Del Rio MD [address] [place] [address] Medical Oncologist/Facilitator Hematology and Oncology 05/11/19 Jacob Flynn MD [address] [place] [address] Radiation Oncologist Radiation Oncology 05/25/19 Renetta Ballesteros NP [address] [place] [address] Nurse Practitioner Radiation Oncology 06/11/22 documented as of this encounter
--- OUTSIDE RECORDS SUMMARY | 2024-03-02 04:20 | XMS_ITS | Encounter Summary ---
Author Organization [facility] Address [address] [facility] [address] [place] [address] Care Team Providers Care Medicare Sales Representative Name Role Phone Clara Stanley Primary Care Provider + Jasper Canchola MD Unavailable Alexis Lopez MD Unavailable Kip Del Rio MD Unavailable Jacob Flynn MD Unavailable Renetta Ballesteros NP Unavailable Reason for Visit * Reason Comments Follow-up Encounter Details Date Type Department Care Team (Late st Contact Info) Description 09/19/2022 8:30 AM CDT Office Visit [facility] Pulmonology [address] [facility] [address] [place] [phone] [place] [address] [place] [address] [address] [place] [address] Mild intermittent asthma without complication (Primary Dx); [...] on file 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 He did see the artificial stone setter and he had positive skin testing and [...] sprays into each nostrildaily 16 g 6 uqvbjcacfcr-tbsisqeej-ocbmlnje (Trelegy Ellipta) 100-62.5-25 mcg inhaler Inhale 1 [...] Plan: He is being followed at the [facility] with serial chest CTs and he did [...] dry cough now. He did see the artificial stone setter and allergy shots versus Dupixent is being [...] dry cough now. He did see the artificial stone setter and allergy shots versus Dupixent is being considered. He will continue on Protonix 40 mg daily. I will consider bronchoscopy if the allergy shots/Dupixent do not control the cough. * Assessment & Plan Note - Alexis Lopez MD - 09/19/2022 9:06 AM CDT Associated Problem(s): Lung nodule (Deleted) He is being followed at the [facility] with serial chest CTs and he did [...] persistent documented in this encounter Care Teams Medicare Sales Representative Relationship Specialty Start Date End Date Clara Stanley PA [address] [place] [address] PCP - General Nurse Practitioner 04/05/19 Jasper Canchola MD [address] [place] [address] Surgeon Thoracic Surgery 05/11/19 Alexis Lopez MD [address] [address] Plastic Technician Pulmonary Disease 05/11/19 Kip Del Rio MD [address] [place] [address] Medical Oncologist/Academic Interventionist Hematology and Oncology 05/11/19 Jacob Flynn MD [address] [place] [address] Radiation Oncologist Radiation Oncology 05/25/19 Renetta Ballesteros NP [address] [place] [address] Nurse Practitioner Radiation Oncology 06/11/22 documented as of this encounter
--- OUTSIDE RECORDS SUMMARY | 2024-03-02 04:20 | XMS_ITS | Encounter Summary ---
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) Procedures CT Chest Abdomen Pelvis W Contrast Renetta Ballesteros NP [address] [facility] [address] [place] [address] Phone: tel: fax: [address] [phone] Referral ID Status Reason Start Date Expiration Date Visits Re quested Visits Authorized [id number] Closed 06/11/2022 07/11/2023 1 1 Reason for Visit * Reason Comments Follow-up Prior CT Encounter Details Date Type Department Care Team (Late st Contact Info) Description 06/11/2022 11:00 AM CDT Office Visit [facility] Advanced Medicine Radiation Oncology [address] [facility] [place] [address] Renetta Ballesteros NP [address] [facility] [address] [place] [address] Secondary malignant neoplasm of mediastinal lymph node [...] on file Legal 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 He is seeing a loftsman/woman who diagnosed him with asthma. He reports chronic cough that is worse upon exertion. He is on Symbicort and trelegy. He is seeing an operations vocational instructor soon. He is also trying to lose [...] User Date and Time TITA ENCARNACION NP [[id number]] 06/06/2022 9:16 AM ROS A complete review [...] signed by: Seb Alfonso M.D. Renetta Ballesteros CROSS COUNTRY COACH IMG CT PROCEDURES Final Result documented in [...] 09/21/2022 added in this encounter Care Teams Pipe Fitter Helper Relationship Specialty Start Date End Date Clara Stanley PA [address] [place] [address] PCP - General Nurse Practitioner 04/05/19 Jasper Canchola MD [facility] [place] [place] [address] Surgeon Thoracic Surgery 05/11/19 Alexis Lopez MD [address] [facility] [address] [address] Chemical Weigher Pulmonary Disease 05/11/19 Kip Del Rio MD 49[address] [facility] [address] [place] [address] Medical Oncologist/Nurse Technician Hematology and Oncology 05/11/19 Jacob Flynn MD [address] [facility] [address] [place] [address] Radiation Oncologist Radiation Oncology 05/25/19 Renetta Ballesteros NP [address] [facility] [address] [place] [address] Nurse Practitioner Radiation Oncology 06/11/22 documented as of this encounter
--- OUTSIDE RECORDS SUMMARY | 2024-03-02 04:20 | XMS_ITS | Encounter Summary ---
Author Organization [facility] Address [address] [place] [address] Care Team Providers Care Engine Cleaner Name Role Phone Clara Stanley Primary Care Provider + Jasper Canchola MD Unavailable Alexis Lopez MD Unavailable Kip Del Rio MD Unavailable Jacob Flynn MD Unavailable Renetta Ballesteros NP Unavailable Reason for Visit * Reason Comments Follow-up Prior CT Encounter Details Date Type Department Care Team (Late st Contact Info) Description 09/18/2022 11:00 AM CDT Office Visit [facility] Radiation Oncology [facility] Advanced Medicine [place] [address] Jacob Flynn MD [address] [facility] [address] LL [address] [place] [address] Primary cancer of right lower lobe of [...] on file Legal Sex Male 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 CN II-XII intact. Hzqyjy-ih-wmul exam did not show any dysmetria. Sensation [...] 4 added in this encounter Care Teams Engine Cleaner Relationship Specialty Start Date End Date Clara Stanley PA [address] [place] [address] PCP - General Nurse Practitioner 04/05/19 Jasper Canchola MD [address] [place] [address] Surgeon Thoracic Surgery 05/11/19 Alexis Lopez MD [address] [facility] [address] [address] Cytology Supervisor Pulmonary Disease 05/11/19 Kip Del Rio MD [address] [facility] [address] [place] [address] Medical Oncologist/Precision Aircraft Systems Assembler Hematology and Oncology 05/11/19 Jacob Flynn MD [address] [facility] [address] [place] [address] Radiation Oncologist Radiation Oncology 05/25/19 Renetta Ballesteros NP [address] [facility] [address] [place] [address] Nurse Practitioner Radiation Oncology 06/11/22 documented as of this encounter
--- OUTSIDE RECORDS SUMMARY | 2024-03-02 04:20 | XMS_ITS | Encounter Summary ---
Author Organization [facility] Address [address] [facility] [address] [place] [address] Care Team Providers Care Floating Operator Name Role Phone Clara Stanley Primary Care Provider + Jasper Canchola MD Unavailable Alexis Lopez MD Unavailable [phone] Kip Del Rio MD Unavailable Jacob Flynn MD Unavailable Renetta aBllesteros NP Unavailable [phone] Encounter Details Date Type Department Care Team (Late st Contact Info) Description 08/19/2022 Telephone [facility] Pulmonology [address] [facility] [address] [place] [address] Yolanda Segal, KAMILA Social History [...] file Legal Sex Male 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 Gender Identity Not on file Sexual Orientation [...] on filedocumented in this encounter Care Teams Floating Operator Relationship Specialty Start Date End Date Clara Stanley PA [address] [place] [address] PCP - General Nurse Practitioner 04/05/19 Jasper Canchola MD [address] [place] [address] Surgeon Thoracic Surgery 05/11/19 Alexis Lopez MD [address] [facility] [address] [address] Scoop Operator Pulmonary Disease 05/11/19 Kip Del Rio MD [address] [facility] [address] [place] [address] Medical Oncologist/Tax Services Intern Hematology and Oncology 05/11/19 Jacob Flynn MD [address] [place] [address] Radiation Oncologist Radiation Oncology 05/25/19 Renetta Ballesteros NP [address] [place] [address] Nurse Practitioner Radiation Oncology 06/11/22 documented as of this encounter
--- OUTSIDE RECORDS SUMMARY | 2024-03-02 04:20 | XMS_ITS | Encounter Summary ---
Author Organization [facility] Address [address] [facility] [address] [place] [address] Care Team Providers Care Cable Hooker Name Role Phone Clara Stanley Primary Care Provider + Jasper Canchola MD Unavailable Alexis Lopez MD Unavailable [phone] Kip Del Rio MD Unavailable [phone] Jacob Flynn MD Unavailable Reason for Visit * Reason Onset Date Comments Medical Question/Miscellaneous 05/02/2022 Encounter Details Date Type Department Care Team (Late st Contact Info) Description 05/02/2022 Telephone [facility] Pulmonology [address] [facility] [address] [place] [address] Evelina Encarnacion MA Medical Question/Miscellaneous [...] on file Legal Sex Male 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 INSPECTOR * Telephone Encounter - Evelina Encarnacion MA - 05/02/2022 11:13 AM LENS INSPECTOR ----- Message from Alexis Lopez MD sent at 05/02/2022 10:50 AM LENS INSPECTOR ----- Regarding: RE: Cough and Cold Contact: Okay for a Z-Alex and Medrol Dosepak ----- Message ----- From: Evelina Encarnacion MA Sent: 05/02/2022 9:56 AM LENS INSPECTOR To: Alexis Lopez MD Subject: FW: Cough and Cold ----- Message ----- From: Kwaku Kulkarni Sent: 05/02/2022 8:54 AM LENS INSPECTOR To: Bjgiovanni Villela Clinical Subject: Cough and Cold Good Morning Dr. Lopez, I have been battling a cough and cold over the past couple weeks and it doesn't seem to be getting any better. Would it be possible for you to call in a prescription to [facility] [place] for me? I just have constant drainage in my nose and throat and when I breathe in you can hear noise from mucusor something in my upper chest area. Thank You, Justin Kulkarni INSPECTOR documented in this encounter Plan of Treatment Not on file documented as of this encounter Visit Diagnoses Not on filedocumented in this encounter Care Teams Cable Hooker Relationship Specialty Start Date End Date Clara Stanley PA [address] [place] [address] PCP - General Nurse Practitioner 04/05/19 Jasper Canchola MD [address] [place] [address] Surgeon Thoracic Surgery 05/11/19 Alexis Lopez MD [address] [address] Asphalt Paver Pulmonary Disease 05/11/19 Kip Del Rio MD [address] [facility] [address] [place] [address] Medical Oncologist/Broker Agricultural Produce Hematology and Oncology 05/11/19 Jacob Flynn MD [address] [facility] [address] [place] [address] Radiation Oncologist Radiation Oncology 05/25/19 documented as of this encounter
--- OUTSIDE RECORDS SUMMARY | 2024-03-02 04:20 | XMS_ITS | Encounter Summary ---
Author Organization [facility] Address [address] [facility] [address] [place] [address] Care Team Providers Care Solid Waste Division Supervisor Name Role Phone Clara Stanley Primary Care Provider + Jasper Canchola MD Unavailable Alexis Lopez MD Unavailable [phone] Kip Del Rio MD Unavailable Jacob Flynn MD Unavailable [phone] Reason for Visit * Reason Comments Follow-up Encounter Details Date Type Department Care Team (Late st Contact Info) Description 06/06/2022 9:15 AM CDT Office Visit [facility] Pulmonology [address] [facility] [address] [place] [phone] Trinity Encarnacion, SPEECH ASSISTANT [address] [facility] [address] [place] [address] Cough, persistent (Primary Dx); LEONOR (obstructive sleep [...] on file Legal Sex Male 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 Gender Identity Not on file Sexual [...] sprays into each nostrildaily 16 g 6 kzcocasvdcx-qcbsjgzmu-ptisoplu (Trelegy Ellipta) 100-62.5-25 mcg inhaler Inhale 1 [...] nodule documented in this encounter Care Teams Solid Waste Division Supervisor Relationship Specialty Start Date End Date Clara Stanley PA [address] [place] [address] PCP - General Nurse Practitioner 04/05/19 Jasper Canchola MD [address] [place] [address] Surgeon Thoracic Surgery 05/11/19 Alexis Lopez MD [facility] [address] [address] Relocation Associate Pulmonary Disease 05/11/19 Kip Del Rio MD [address] [facility] [address] [place] [address] Medical Oncologist/City Collector Hematology and Oncology 05/11/19 Jacob Flynn MD [address] [facility] [address] [place] [address] Radiation Oncologist Radiation Oncology 05/25/19 documented as of this encounter
--- OUTSIDE RECORDS SUMMARY | 2024-03-02 04:20 | XMS_ITS | Encounter Summary ---
Author Organization [facility] Address [address] [place] [address] Care Team Providers Care Coil Connector Name Role Phone Clara Stanley Primary Care Provider + Jasper Canchola MD Unavailable Alexis Lopez MD Unavailable [phone] Kip Del Rio MD Unavailable Jacob Flynn MD Unavailable Reason for Referral * MRI/CAT/PET Scan (Routine) - Closed Specialty Diagnoses / Procedures Referred By Erik galdamez Referred To Contact Radiology Diagnoses Malignant neoplasm of lower lobe of right lung (HCC) Radiotherapy follow-up examination Procedures CT Chest Abdomen Pelvis W Contrast Julia Mckenna NP Phone: tel: fax: [address] [address] Referral ID Status Reason Start Date Expiration Date Visits Re quested Visits Authorized [id number] Closed 03/04/2022 04/03/2023 1 1 ER TREATMENT PLANT OPERATOR Reason for Visit * Reason Comments Follow-up Prior CT Encounter Details Date Type Department Care Team (Late st Contact Info) Description 03/04/2022 9:50 AM TIMBER TREATMENT PLANT OPERATOR Office Visit [facility] Advanced Medicine Radiation Oncology [address] [place] [address] Julia Mckenna NP 49[address] [facility] [address] [place] [address] Malignant neoplasm of lower lobe of right [...] on file Legal Sex Male 1:17 AM TIMBER TREATMENT PLANT 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 Gender Identity Not on file Sexual [...] (364 lb 9.6 oz) 03/04/2022 9:44 AM TIMBER TREATMENT PLANT OPERATOR Height 190.5 cm (6' 3 ) 03/04/2022 9:44 AM TIMBER TREATMENT PLANT OPERATOR Body Mass Index 45.57 03/04/2022 9:44 AM TIMBER TREATMENT PLANT OPERATOR documented in this encounter Progress Notes * Julia Mckenna NP - 03/04/2022 9:50 AM CST Radiation Oncologist: Jacob Flynn MD Primary Care Physician: Clara Stanley PA Medical Oncologist: Kip Del Rio MD Surgeon: Jasper Canchola MD Referring Physician: No care pilot steam yacht to display Date of Service: 03/04/2022 RADIATION [...] he is now on 2 new inhalers. Business Dean is planning to do a stress test. [...] Jacob Flynn MD at 03/11/2022 9:59 PM TIMBER TREATMENT PLANT OPERATOR ER TREATMENT PLANT OPERATOR ER TREATMENT PLANT OPERATOR documented in this encounter Plan of [...] Herrera Delarosa MD us Juliacolette Santacruz Clarisa MATERNAL FETAL PHYSICIAN IMG CT PROCEDURES Final R esult documented [...] 03/31/2022 added in this encounter Care Teams Coil Connector Relationship Specialty Start Date End Date Clara Stanley PA [address] [place] [address] PCP - General Nurse Practitioner 04/05/19 Jasper Canchola MD [facility] [place] [address] Surgeon Thoracic Surgery 05/11/19 Alexis Lopez MD 4600 [facility] [address] [address] Specialty Development Consultant Pulmonary Disease 05/11/19 Kip Del Rio MD 4921 [facility] [address] [place] [address] Medical Oncologist/Import Specialist Hematology and Oncology 05/11/19 Jacob Flynn MD 49[address] [facility] [address] [place] [address] Radiation Oncologist Radiation Oncology 05/25/19 documented as of this encounter
--- OUTSIDE RECORDS SUMMARY | 2024-03-02 04:20 | XMS_ITS | Encounter Summary ---
Author Organization [facility] Address [address] [place] [address] Care Team Providers Care Cable Television Access Coordinator Name Role Phone Clara Stanley Primary [...] Julia Mckenna NP Phone: tel: fax: [address] [address] Referral ID Status Reason Start Date Expiration Date Visits Re quested Visits Authorized [id number] Closed 09/11/2021 10/11/2022 1 1 Reason for Visit * Reason Comments Follow-up Prior CT Encounter Details Date Type Department Care Team (Late st Contact Info) Description 09/11/2021 1:00 PM CDT Office Visit [facility] Advanced Medicine Radiation Oncology [address] [facility] [place] [address] Julia Mckenna NP 49[address] [facility] [address] [place] [address] Carcinoid tumor of right lung (Primary Dx); [...] on file Legal 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 Please understand radiation oncology will work with [...] often with soap and water, or alcohol-based hand-drop wire stringer - For the most current and up [...] Canchola MD Referring Physician: No care steam hand to display Date of Service: 09/11/2021 RADIATION [...] Dr. Rosangela Perla. Chest/Abdomen/Pelvic CT scan at [facility] performed 09/11/2021 demonstrates post surgical changes of [...] Rosangela Peña M.D. 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 multivitamin capsule Take 1 capsule by mouth daily added in this encounter Care Teams Cable Television Access Coordinator Relationship Specialty Start Date End Date Clara Stanley PA [address] [place] [address] PCP - General Nurse Practitioner 04/05/19 Jasper Canchola MD [address] [place] [address] Surgeon Thoracic Surgery 05/11/19 Alexis Lopez MD [address] [address] Anesthesiology Physician Pulmonary Disease 05/11/19 Kip DelR io MD [address] [facility] [address] [place] [address] Medical Oncologist/Gm Hematology and Oncology 05/11/19 Jacob Flynn MD 4921 [facility] [address] [place] [address] Radiation Oncologist Radiation Oncology 05/25/19 documented as of this encounter
--- OUTSIDE RECORDS SUMMARY | 2024-03-02 04:20 | XMS_ITS | Encounter Summary ---
Author Organization [facility] Address [address] [place] [address] Care Team Providers Care Inspector And Adjuster Golf Club Head Name Role Phone Clara Stanley Primary Care Provider + Jasper Canchola MD Unavailable Alexis Lopez MD Unavailable [phone] Kip Del Rio MD Unavailable Jacob Flynn MD Unavailable [phone] Renetta Ballesteros NP Unavailable [phone] Reason for Visit * Reason Onset Date Comments Request For Order(s) 09/19/2022 Encounter Details Date Type Department Care Team (Late st Contact Info) Description 09/19/2022 Telephone [facility] Pulmonology [address] [facility] [address] [place] [address] Evelina Encarnacion MA Request For [...] file Legal Sex Male 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 * Telephone Encounter - Evelina Encarnacion MA - 09/19/2022 10:07 AM CDT Faxed order. * Telephone Encounter - Evelina Encarnacion MA - 09/19/2022 9:42 AM CDT ----- Message from Alexis Lopez MD sent at 09/19/2022 9:02 AM CDT ----- Please order a home nebulizer through [facility] Thank you documented in this encounter Plan of Treatment Not on file documented as of this encounter Visit Diagnoses Diagnosis Mild intermittent asthma without complication- Primary documented in this encounter Orders General Supply Count Last Ordered Date First Or dered Date NEBULIZER WITH KIT 1 09/19/2022 documented in this encounter Care Teams Inspector And Adjuster Golf Club Head Relationship Specialty Start Date End Date Clara Stanley PA [address] [place] [address] PCP - General Nurse Practitioner 04/05/19 Jasper Canchola MD [address] [place] [address] Surgeon Thoracic Surgery 05/11/19 Alexis Lopez MD [address] [address] Plating Foreman Pulmonary Disease 05/11/19 Kip Del Rio MD [address] [place] [address] Medical Oncologist/Size Maker Hematology and Oncology 05/11/19 Jacob Flynn MD [address] [place] [address] Radiation Oncologist Radiation Oncology 05/25/19 Renetta Ballesteros NP [address] [place] [address] Nurse Practitioner Radiation Oncology 06/11/22 documented as of this encounter
--- OUTSIDE RECORDS SUMMARY | 2024-03-02 04:20 | XMS_ITS | Encounter Summary ---
Author Organization [facility] Address [address] [place] [address] Care Team Providers Care Civil Engineering Drafter Name Role Phone Clara Stanley Primary Care Provider + Jasper Canchola MD Unavailable Alexis Lopez MD Unavailable [phone] Kip Del Rio MD Unavailable Jacob Flynn MD Unavailable [phone] Renetta Ballesteros NP Unavailable [phone] Reason for Referral * MRI/CAT/PET Scan (Routine) - Closed Specialty Diagnoses / Procedures Referred By Erik galdamez Referred To Contact Radiology Diagnoses Malignant neoplasm of lower lobe of right lung (HCC) Radiotherapy follow-up examination Procedures CT Chest Abdomen Pelvis W Contrast Julia Mckenna NP Phone: tel: fax: [address] [address] Referral ID Status Reason Start Date Expiration Date Visits Re quested Visits Authorized [id number] Closed 03/04/2022 04/03/2023 1 1 Reason for Visit * MRI/CAT/PET Scan (Routine) - Closed Specialty Diagnoses / Procedures Referred By Erik galdamez Referred To Contact Radiology Diagnoses Malignant neoplasm of lower lobe of right lung (HCC) Radiotherapy follow-up examination Procedures CT Chest Abdomen Pelvis W Contrast Julia Mckenna NP Phone: tel: fax: [address] [address] Referral ID Status Reason Start Date Expiration Date Visits Re quested Visits Authorized [id number] Closed 03/04/2022 04/03/2023 1 1 Encounter Details Date Type Department Care Team (Latest Contact Info) Description 06/11/2022 10:05 AM CDT - 06/11/2022 11:59 PM CDT Hospital Encounter [facility] [address] [place] [address] Malignant neoplasm of lower lobe of [...] on file Legal Sex Male 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 Electronically signed by: Herrera Delarosa MD Jluia Mckenna NP IMG CT PROCEDURES Final R esult * POCT creatinine (06/11/2022 10:26 AM CDT) Creatinine POC 0.8 0.7 - 1.3 mg/dL [facility] Blood 06/11/2022 10:2 6 AM CDT 06/11/2022 10:26 AM CDT us Kip Del Rio MD LAB POCT ORDERABLES - XIOMARA CE Final Result [facility] [address] [facility] Department [place] [address] documented in this encounter Visit Diagnoses Diagnosis [...] 06/11/2022 documented in this encounter Care Teams Civil Engineering Drafter Relationship Specialty Start Date End Date Clara Stanley PA [address] [place] [address] PCP - General Nurse Practitioner 04/05/19 Jasper Canchola MD [address] [place] [address] Surgeon Thoracic Surgery 05/11/19 Alexis Lopez MD [address] [address] Trial Management Associate Pulmonary Disease 05/11/19 Kip Del Rio MD [address] [place] [address] Medical Oncologist/Triage Rn Hematology and Oncology 05/11/19 Jacob Flynn MD [address] [place] [address] Radiation Oncologist Radiation Oncology 05/25/19 Renetta Ballesteros NP [address] [place] [address] Nurse Practitioner Radiation Oncology 06/11/22 documented as of this encounter
--- OUTSIDE RECORDS SUMMARY | 2024-03-02 04:20 | XMS_ITS | Encounter Summary ---
Author Organization [facility] Address [address] [place] [address] Care Team Providers Care Television Cameraman Name Role Phone Clara Stanley Primary Care Provider + Jasper Canchola MD Unavailable Alexis Lopez MD Unavailable [phone] Kip Del Rio MD Unavailable Jacob Flynn MD Unavailable Reason for Referral * Procedure (Routine) - Closed Specialty Diagnoses / Procedures Referred By Erik galdamez Referred To Contact Diagnoses Mild intermittent asthma without complication Procedures Pulmonary Function Test -[facility]; Full PFT in PFT Lab Shyla Shafer NP [address] [place] [address] Phone: tel: fax: Referral ID Status Reason Start Date Expiration Date Visits Re quested Visits Authorized [id number] Closed 02/26/2022 03/28/2023 1 1 ERCIAL REAL ESTATE UNDERWRITER Reason for Visit * Procedure (Routine) - Closed Specialty Diagnoses / Procedures Referred By Erik galdamez Referred To Contact Diagnoses Mild intermittent asthma without complication Procedures Pulmonary Function Test -[facility]; Full PFT in PFT Lab Shyla Shafer NP [address] [place] [address] Phone: tel: fax: Referral ID Status Reason Start Date Expiration Date Visits Re quested Visits Authorized [id number] Closed 02/26/2022 03/28/2023 1 1 Encounter Details Date Type Department Care Team (Latest Contact Info) Description 04/18/2022 7:55 AM COMMERCIAL REAL ESTATE UNDERWRITER - 04/18/2022 11:59 PM COMMERCIAL REAL ESTATE UNDERWRITER Hospital Encounter [facility] Respiratory [address] [place] [address] Mild intermittent asthma without complication Discharge Disposition: [...] file Legal Sex Male 1:17 AM COMMERCIAL REAL ESTATE UNDERWRITER Gender Identity Not on file Sexual [...] FUNCTION TEST (PFT) Routine 04/18/2022 8:51 AM COMMERCIAL REAL ESTATE UNDERWRITER Mild intermittent asthma without complication documented in this encounter Results * Pulmonary Function Test - (04/18/2022 8:51 AM COMMERCIAL REAL ESTATE UNDERWRITER) FVC POST 3.69 L 04/18/2022 8:50 AM COMMERCIAL REAL ESTATE UNDERWRITER [facility] FVC PRE 3.73 L 04/18/2022 8:50 AM [facility] FEV1 POST 2.85 L 04/18/2022 8:50 AM [facility] FEV1 PRE 2.85 L 04/18/2022 8:50 AM [facility] [id number] 77.28 % 04/18/2022 8:50 AM COMMERCIAL REAL ESTATE UNDERWRITER [facility] [id number] 76.56 % 04/18/2022 8:50 AM COMMERCIAL REAL ESTATE UNDERWRITER [facility] TFF73-15% POST 2.56 L/s 04/18/2022 8:50 AM [facility] DDZ59-80% PRE 2.41 L/s 04/18/2022 8:50 AM [facility] PEF POST 6.65 L/s 04/18/2022 8:50 AM [facility] PEF PRE 6.06 L/s 04/18/2022 8:50 AM [facility] FET 100% POST 9.44 sec 04/18/2022 8:50 AM [facility] FET 100% PRE 8.58 sec 04/18/2022 8:50 AM [facility] FIVC POST 3.32 L 04/18/2022 8:50 AM [facility] FIVC PRE 3.35 L 04/18/2022 8:50 AM [facility] FIF50% POST 4.18 L/s 04/18/2022 8:50 AM [facility] FIF50% PRE 4.49 L/s 04/18/2022 8:50 AM [facility] VC PRE 3.81 L 04/18/2022 8:50 AM [facility] TLC PRE 5.46 L 04/18/2022 8:50 AM [facility] RV PRE 1.66 L 04/18/2022 8:50 AM [facility] FRC PL PRE 2.96 L 04/18/2022 8:50 AM [facility] ERV PRE 1.31 L 04/18/2022 8:50 AM [facility] IC PRE 2.46 L 04/18/2022 8:50 AM [facility] RAW PRE 3.38 cmH2O*s/L 04/18/2022 8:50 AM [facility] BF RES 32.05 BPM 04/18/2022 8:50 AM [facility] VTG RAW 3.14 L 04/18/2022 8:50 AM [facility] VTG 3.14 L 04/18/2022 8:50 AM [facility] DLCOc SB 27.30 ml/(min*mm Hg) 04/18/2022 8:50 AM COMMERCIAL REAL ESTATE UNDERWRITER [facility] DLCOc SB 27.30 ml/(min*mm Hg) 04/18/2022 8:50 AM [facility] VA 4.75 L 04/18/2022 8:50 AM [facility] DLCO/VA PRE 5.75 ml/(min*mm Hg*L) 04/18/2022 8:50 AM [facility] DLCOc SB 5.75 ml/(min*mm Hg*L) 04/18/2022 8:50 AM [facility] Anatomical Region Laterality Modality PFT 04/18/2022 8:00 AM COMMERCIAL REAL ESTATE UNDERWRITER Narrative 04/18/2022 11:55 AM [facility] Impression: Normal spirometry without any evidence of obstruction or change post bronchodilator therapy. Lung volumes demonstrate moderate restrictive ventilatory impairment, likely contributed by elevated BMI. DLCO is normal without any evidence of diffusion impairment. Electronically signed by Blair Cooley MD, [facility] Pulmonary and Critical Care Medicine [facility] Shyla Shafer RADIOLOGY RESIDENT PFT ORDERABLES Final Resul t documented in this encounter Visit Diagnoses Diagnosis Mild intermittent asthma without complication documented in this encounter Care Teams Television Cameraman Relationship Specialty Start Date End Date Clara Stanley PA [address] [place] [address] PCP - General Nurse Practitioner 04/05/19 Jasper Canchola MD [address] [place] [address] Surgeon Thoracic Surgery 05/11/19 Alexis Lopez MD [address] [place] [address] Machine Operator Helper Pulmonary Disease 05/11/19 [place] [address] [place] [address] [place] [address] Medical Oncologist/Road Maker Hematology and Oncology 05/11/19 Jacob Flynn MD [address] [facility] [place] [address] Radiation Oncologist Radiation Oncology 05/25/19 documented as of this encounter
--- OUTSIDE RECORDS SUMMARY | 2024-03-02 04:20 | XMS_ITS | Encounter Summary ---
Author Organization [facility] Address [address] [place] [address] Care Team Providers Care Hardness Tester Name Role Phone Clara Stanley Primary Care Provider + Jasper Canchola MD Unavailable Alexis Lopez MD Unavailable [phone] Kip Del Rio MD Unavailable Jacob Flynn [...] Pelvis W Contrast Jacob Flynn MD [address] [facility] [address] [place] [address] Phone: tel: fax: [address] [address] Referral ID Status Reason Start Date Expiration Date Visits Re quested Visits Authorized [id number] Closed 02/24/2022 03/26/2023 1 1 CAL SECRETARY RECEPTIONIST Encounter Details Date Type Department Care Team (Late st Contact Info) Description 02/24/2022 Orders Only [facility] Radiation Oncology [address] 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 Stable pulmonary nodules with no new pulmonary nodules identified. Stable mediastinal lymph node. ?? 2. No evidence of disease progression or new sites of metastatic disease. Dictated by: Danny Campos MD The radiology attending physician has personally reviewed this study, and had reviewed and/or edited this written report and agrees with it. Electronically signed by: Bronson Gruber M.D. Narrative 03/04/2022 5:37 PM MEDICAL SECRETARY RECEPTIONIST EXAMINATION: ??Computed tomography of the chest, abdomen [...] nodes documented in this encounter Care Teams Hardness Tester Relationship Specialty Start Date End Date Clara Stanley PA [address] [place] [address] PCP - General Nurse Practitioner 04/05/19 Jasper Canchola MD [address] [place] [address] Surgeon Thoracic Surgery 05/11/19 Alexis Lopez MD [address] [facility] [address] [place] [address] Drafter Automotive Design Pulmonary Disease 05/11/19 Kip Del Rio MD [address] [facility] [address] [place] [address] Medical Oncologist/Hostess Party Sales Representative Hematology and Oncology 05/11/19 Jacob Flynn MD [address] [facility] [address] [place], [place] [address] Radiation Oncologist Radiation Oncology 05/25/19 documented as of this encounter
--- OUTSIDE RECORDS SUMMARY | 2024-03-02 04:20 | XMS_ITS | Encounter Summary ---
Author Organization [facility] Address [address] [facility] [place] [address] Care Team Providers Care Environmental Air Specialist Name Role Phone Clara Stanley Primary Care Provider + Jasper Canchola MD Unavailable Alexis Lopez MD Unavailable [phone] Kip Del Rio MD Unavailable Jacob Flynn MD Unavailable Renetta Ballesteros NP Unavailable [phone] Reason for Visit * Reason Onset Date Comments Medical Question/Miscellaneous 09/03/2022 Encounter Details Date Type Department Care Team (Late st Contact Info) Description 09/03/2022 Telephone [facility] Pulmonology [address] [facility] [address] [place] [address] Evelina Encanracion MA Medical Question/Miscellaneous Social History Tobacco Use [...] on file Legal Sex Male 1:17 AM 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 Gender Identity Not on file Sexual [...] on filedocumented in this encounter Care Teams Environmental Air Specialist Relationship Specialty Start Date End Date Clara Stanley PA [address] [place] [address] PCP - General Nurse Practitioner 04/05/19 Jasper Canchola MD [address] [place] [address] Surgeon Thoracic Surgery 05/11/19 Alexis Lopez MD [address] [address] Strip Stamp Straightener Pulmonary Disease 05/11/19 Kip Del Rio MD [address] [facility] [address] [place] [address] Medical Oncologist/Manufacturing Engineer Chief Hematology and Oncology 05/11/19 Jacob Flynn MD [address] [facility] [address] [place] [address] Radiation Oncologist Radiation Oncology 05/25/19 Renetta Ballesteros NP [address] [facility] [address] [place] [address] Nurse Practitioner Radiation Oncology 06/11/22 documented as of this encounter
--- OUTSIDE RECORDS SUMMARY | 2024-03-02 04:20 | XMS_ITS | Encounter Summary ---
Author Organization [facility] Address [address] [place] [address] Care Team Providers Care Call Center Professional Name Role Phone Clara Stanley Primary Care Provider + Jasper Canchola MD Unavailable Alexis Lopez MD Unavailable Kip Del Rio MD Unavailable Jacob Flynn MD Unavailable Encounter Details Date Type Department Care Team (Late st Contact Info) Description 12/10/2021 1:00 PM CDT Office Visit [facility] Radiation Oncology [address] [facility] [place] [address] Julia Mckenna, T[place] [address] [facility] [address] [place] [address] Radiotherapy follow-up examination (Primary Dx); Malignant neoplasm [...] on file Legal Sex Male 1:17 AM SWEEP MOLDER Gender Identity Not on file Sexual Orientation [...] or testing, please call Amelie Lorenzo MA: [phone]. Please understand radiation oncology will work with [...] often with soap and water, or alcohol-based hand-insurance agent - For the most current and up [...] Canchola MD Referring Physician: No care senior project leader/team lead to display Date of Service: 12/10/2021 RADIATION [...] Jacob Flynn. Chest/Abdomen/Pelvic CT scan with at [facility] performed 12/10/[address] CAP [...] Cough documented in this encounter Care Teams Call Center Professional Relationship Specialty Start Date End Date Clara Stanley PA [address] [place] [address] PCP - General Nurse Practitioner 04/05/19 Jasper Canchola MD [address] [place] [address] Surgeon Thoracic Surgery 05/11/19 Alexis Lopez MD [address] [facility] [address] [address] Tubing Supervisor Pulmonary Disease 05/11/19 Kip Del Rio MD [address] [facility] [address] [place] [address] Medical Oncologist/Pharmacy Technician Infusion Hematology and Oncology 05/11/19 Jacob Flynn MD [address] [facility] [address] [place] [address] Radiation Oncologist Radiation Oncology 05/25/19 documented as of this encounter
--- OUTSIDE RECORDS SUMMARY | 2024-03-02 04:20 | XMS_ITS | Encounter Summary ---
Author Organization [facility] Address [address] [place] [address] Care Team Providers Care Electrician Shop Name Role Phone Calra Stanley Primary Care Provider + Jasper Canchola MD Unavailable Alexis Lopez MD Unavailable Kip Del Rio MD Unavailable Violette Willis MD Unavailable Renetta Ballesteros NP Unavailable Reason for Visit * Reason Comments Follow-up Prior CT Encounter Details Date Type Department Care Team (Late st Contact Info) Description 12/25/2022 10:00 AM CDT Office Visit [facility] Radiation Oncology [address] 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 Gender Identity Not on file Sexual [...] Jasper Canchola MD Referring Physician: No care child care team lead to display Date of Service: 12/25/2022 RADIATION [...] 10/01/2023 added in this encounter Care Teams Electrician Shop Relationship Specialty Start Date End Date Clara Stanley PA [address] [place] [address] PCP - General Nurse Practitioner 04/05/19 Jasper Canchola MD [address] [place] [address] Surgeon Thoracic Surgery 05/11/19 Alexis Lopez MD [address] [facility] [address] [address] Operator Vacuum Pulmonary Disease 05/11/19 Kip Del Rio MD [address] [place] [address] Medical Oncologist/Alarm Installer Hematology and Oncology 05/11/19 Violette Willis MD [address] [place] [address] Radiation Oncologist Radiation Oncology 05/25/19 Renetta Ballesteros NP [address] [place] [address] Nurse Practitioner Radiation Oncology 06/11/22 documented as of this encounter
--- OUTSIDE RECORDS SUMMARY | 2024-03-02 04:20 | XMS_ITS | Encounter Summary ---
Author Organization [facility] Address [address] [facility] [address] [place] [address] Care Team Providers Care Mill Roll Operator Name Role Phone Clara Stanley Primary Care Provider + Jasper Canchola MD Unavailable Alexis Lopez MD Unavailable [phone] Kip Del Rio MD Unavailable [phone] Jacob Flynn MD Unavailable Reason for Visit * Reason Onset Date Comments Med Refill 02/10/2022 Encounter Details Date Type Department Care Team (Late st Contact Info) Description 02/10/2022 Telephone [facility] Pulmonology [address] [facility] [address] [place] [address] Alexis Lopez MD [address] [facility] [address] [place] [address] Med Refill Social History Tobacco Use Types [...] on file Legal Sex Male 1:17 AM CAVING GUIDE Gender Identity Not on file Sexual [...] Evelina Encarnacion MA - 02/10/2022 9:43 AM CAVING GUIDE Verified medication and sent to pharmacy Last appt: 02/01/21 Follow up: 02/26/22 NG GUIDE * Telephone Encounter - Brielle Knox - 02/10/2022 9:14 AM CST Patient called asking for a refill on Symbicort inhaler to be sent to [facility] in [address] He was denied previously not having an appointment but he just scheduled one for 2 weeks from now. NG GUIDE documented in this encounter Plan of Treatment [...] documented as of this encounter Care Teams Mill Roll Operator Relationship Specialty Start Date End Date Clara Stanley PA [address] [place] [address] PCP - General Nurse Practitioner 04/05/19 Jasper Canchola MD [address] [place] [address] Surgeon Thoracic Surgery 05/11/19 Alexis Lopez MD [address] [address] Electronic Pagination System Operator Pulmonary Disease 05/11/19 Kip Del Rio MD [address] [employer] [address] [place] [address] Medical Oncologist/Hospice Consultant Hematology and Oncology 05/11/19 Jacob Flynn MD [address] [address] [place], [place] [address] Radiation Oncologist Radiation Oncology 05/25/19 documented as of this encounter
--- OUTSIDE RECORDS SUMMARY | 2024-03-02 04:20 | XMS_ITS | Encounter Summary ---
Author Organization [facility] Address [address] [place] [address] Care Team Providers Care Cherry Pitter Name Role Phone Clara Stanley Primary Care Provider + Jasper Canchola MD Unavailable Alexis Lopez MD Unavailable [phone] Kip Dle Rio MD Unavailable Jacob Flynn MD Unavailable [...] Pelvis W Contrast Jacob Flynn MD [address] [facility] [address] [place] [address] Phone: tel: fax: [address] [phone] Referral ID Status Reason Start Date Expiration Date Visits Re quested Visits Authorized [id number] Closed 02/24/2022 03/26/2023 1 1 TER LANDSCAPE Reason for Visit * MRI/CAT/PET Scan (Routine) - Closed Specialty Diagnoses / Procedures Referred By Contac t Referred To Contact Radiology Diagnoses Radiotherapy follow-up examination 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) Procedures CT Chest Abdomen Pelvis W Contrast Jcaob Flynn MD [address] [facility] [address] [place] [address] Phone: tel: fax: [facility] [address] [facility] [place] [address] Referral ID Status Reason Start Date Expiration Date Visits Re quested Visits Authorized [id number] Closed 02/24/2022 03/26/2023 1 1 Encounter Details Date Type Department Care Team (Latest Contact Info) Description 03/04/2022 8:52 AM DRAFTER LANDSCAPE - 03/04/2022 11:59 PM DRAFTER LANDSCAPE Hospital Encounter [facility] [address] [place] [address] Jacob Flynn MD [address] [facility] [address] [place] [address] Radiotherapy follow-up examination; Malignant neoplasm of lower [...] on file Legal Sex Male 1:17 AM DRAFTER LANDSCAPE Gender Identity Not on file Sexual Orientation [...] Read Routine (OP Routine) 03/04/2022 9:17 AM DRAFTER LANDSCAPE Radiotherapy follow-up examination Malignant neoplasm of lower lobe of right lung (CMS/HCC) (HCC) 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 Stable pulmonary nodules with no new pulmonary nodules identified. Stable mediastinal lymph node. ?? 2. No evidence of disease progression or new sites of metastatic disease. Dictated by: Danny Campos MD The radiology attending physician has personally reviewed this study, and had reviewed and/or edited this written report and agrees with it. Electronically signed by: Bronson Gruber M.D. Narrative 03/04/2022 5:37 PM DRAFTER LANDSCAPE EXAMINATION: ??Computed tomography of the chest, abdomen [...] Result * POCT creatinine (03/04/2022 9:05 AM DRAFTER LANDSCAPE) Creatinine POC 0.8 0.7 - 1.3 mg/dL [facility] Blood 03/04/2022 9:05 AM DRAFTER LANDSCAPE 03/04/2022 9:05 AM DRAFTER LANDSCAPE Jacob Flynn MD LAB POCT ORDERABLES - DEVICE Final Result [facility] One [facility] Department [place] [address] documented in this encounter Visit Diagnoses Diagnosis [...] 1 dose Contrast Given 03/04/2022 9:18 AM DRAFTER LANDSCAPE 119 mL documented in this encounter Orders Medications Ordered That Vikram ht Not Have Been Administered Count Last Ordered Date First Ordered Date ioversoL (OPTIRAY 350) syringe 125 mL 1 documented in this encounter Care Teams Cherry Pitter Relationship Specialty Start Date End Date Clara Stanley PA [address] [place] [address] PCP - General Nurse Practitioner 04/05/19 Jasper Canchola MD [address] [place] [address] Surgeon Thoracic Surgery 05/11/19 Alexis Lopez MD [address] [address] Parcel Contractor Pulmonary Disease 05/11/19 Kip Del Rio MD [address] [facility] [address] [place] [address] Medical Oncologist/Time Study Engineer Hematology and Oncology 05/11/19 Jacob Flynn MD [address] [facility] [address] [place] [address] Radiation Oncologist Radiation Oncology 05/25/19 documented as of this encounter
--- OUTSIDE RECORDS SUMMARY | 2024-03-02 04:20 | XMS_ITS | Encounter Summary ---
Author Organization [facility] Address [address] [facility] [address] [place] [address] Care Team Providers Care Office Machine Servicer Apprentice Name Role Phone Clara Stanley Primary Care Provider + Jasper Canchola MD Unavailable Alexis Lopez MD Unavailable [phone] Kip Del Rio MD Unavailable Jacob Flynn MD Unavailable Renetta Ballesteros NP Unavailable Reason for Visit * Reason Onset Date Comments Medical Question/Miscellaneous 08/29/2022 Encounter Details Date Type Department Care Team (Late st Contact Info) Description 08/29/2022 Telephone [facility] Pulmonology [address] [facility] [address] [place] [address] Evelina Encarnacion MA Medical Question/Miscellaneous [...] file Legal Sex Male 1:17 AM MANAGER 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 I the [facility] [place]. as my pharmacy. If you could [...] documented as of this encounter Care Teams Office Machine Servicer Apprentice Relationship Specialty Start Date End Date Clara Stanley PA [address] [place] [address] PCP - General Nurse Practitioner 04/05/19 Jasper Canchola MD [address] [place] [address] Surgeon Thoracic Surgery 05/11/19 Alexis Lopez MD [address] [facility] [address] [address] Wan Support Specialist Pulmonary Disease 05/11/19 Kip Del Rio MD [address] [facility] [address] [place] [address] Medical Oncologist/Manual Arts Therapist Hematology and Oncology 05/11/19 Jacob Flynn MD [address] [facility] [address] [place], [place] [id number] Radiation Oncologist Radiation Oncology 05/25/19 Renetta Ballesteros NP [address] [facility] [address] [place] [address] Nurse Practitioner Radiation Oncology 06/11/22 documented as of this encounter
--- OUTSIDE RECORDS SUMMARY | 2024-03-02 04:20 | XMS_ITS | Encounter Summary ---
Author Organization [facility] Address [address] [facility] [address] [place] [address] Care Team Providers Care Cathead Worker Name Role Phone Clara Stanley Primary Care Provider + Jasper Canchola MD Unavailable Alexis Lopez MD Unavailable Kip Del Rio MD Unavailable Jacob Flynn MD Unavailable Renetta Ballesteros NP Unavailable Reason for Visit * Reason Comments Follow-up Encounter Details Date Type Department Care Team (Late st Contact Info) Description 08/08/2022 9:45 AM CDT Office Visit 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 Gender Identity Not on file Sexual [...] 36.2 ??C (97.1 ??F) 08/08/2022 9:34 AM CDT Respiratory Rate 18 08/08/2022 9:34 AM CDT [...] that he is not heard from the vegetable packer.The patient states he feels like his breathing [...] mg total) by mouth every morning [DISCONTINUED] svyfrgqvuzi-jsgfxfcpy-cglfndje (Trelegy Ellipta) 100-62.5-25 mcg inhaler Inhale 1 puff daily 60 each 3 benzonatate (TESSALON) 200 mg capsule TAKE 1 CAPSULE BY MOUTH THREE TIMES DAILY NEEDED FOR COUGH(Patient not taking: Reported on 06/11/2022) ooojssfwfje-emanebymk-scutsboe (Trelegy Ellipta) 100-62.5-25 mcg inhaler Inhale 1 [...] The patient has not heard from the vegetable packer. I did send a message to our office staff to follow-up. Mild intermittent asthma without complication Assessment & Plan: Patient continue to use Trelegy one inhalation once a day. Patient continue to use his albuterol asneeded up to 4 times a day for shortness of breath. Patient continue with Singulair, Protonix, Cherelle, and Flonase. Other orders - oebecddtgaq-gxkqrpnjs-lkolrarj (Trelegy Ellipta) 100-62.5-25 mcg inhaler; Inhale 1 [...] The patient has not heard from the vegetable packer. I did send a message to our [...] Discontinue Reason Start Date End Da te tvmfweljscw-efqioanml-iq lanter (Trelegy Ellipta) 100-62.5-25 mcg inhaler Inhale 1 puff daily Reorder 03/31/202207/15 documented as of this encounter Care Teams Cathead Worker Relationship Specialty Start Date End Date Clara Stanley PA [address] [place] [address] PCP - General Nurse Practitioner 04/05/19 Jasper Canchola MD [address] [place] [address] Surgeon Thoracic Surgery 05/11/19 Alexis Lopez MD [address] [address] Timber Spotter Pulmonary Disease 05/11/19 Kip Del Rio MD [address] [facility] [address] [place] [address] Medical Oncologist/Ear Flap Binder Hematology and Oncology 05/11/19 Jacob Flynn MD [address] [facility] [address] [place] [address] Radiation Oncologist Radiation Oncology 05/25/19 Renetta Ballesteros NP [address] [place] [address] Nurse Practitioner Radiation Oncology 06/11/22 documented as of this encounter
--- OUTSIDE RECORDS SUMMARY | 2024-03-02 04:20 | XMS_ITS | Encounter Summary ---
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 Gender Identity Not on file Sexual Orientation [...] CDT) IgE 26.2 1.0 - 100.0 IUnits/mL [facility] Blood 06/06/2022 10:0 1 AM CDT 06/06/2022 10:35 AM CDT Shyla Shafer REGIONAL SERVICE MANAGER LAB BLOOD ORDERABLES Final Result [facility] [address] [facility] [place] [address] documented in this encounter Visit Diagnoses Diagnosis Mild intermittent asthma without complication documented in this encounter Care Teams Appraiser Relationship Specialty Start Date End Date Clara Stanley PA [address] [place] [address] PCP - General Nurse Practitioner 04/05/19 Jasper Canchola MD [address] [place] [address] Surgeon Thoracic Surgery 05/11/19 Alexis Lopez MD [address] [address] Assembler Cards And Announcements Pulmonary Disease 05/11/19 Kip Del Rio MD [address] [facility] [address] [place] [address] Medical Oncologist/Wood Dowel Machine Operator Hematology and Oncology 05/11/19 Jacob Flynn MD [address] [facility] [address] [place] [address] Radiation Oncologist Radiation Oncology 05/25/19 documented as of this encounter
--- OUTSIDE RECORDS SUMMARY | 2024-03-02 04:20 | XMS_ITS | Encounter Summary ---
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 follow-up examination Procedures CT Chest Abdomen Pelvis W Contrast Julia Mckenna NP Phone: tel: fax: [address] [address] Referral ID Status Reason Start Date Expiration Date Visits Re quested Visits Authorized [id number] Closed 09/11/2021 10/11/2022 1 1 Reason for Visit * MRI/CAT/PET Scan (Routine) - Closed Specialty Diagnoses / Procedures Referred By Erik galdamez Referred To Contact 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 follow-up examination Procedures CT Chest Abdomen Pelvis W Contrast Julia Mckenna NP Phone: tel: fax: [address] [address] Referral ID Status Reason Start Date Expiration Date Visits Re quested Visits Authorized [id number] Closed 09/11/2021 10/11/2022 1 1 Encounter Details Date Type Department Care Team (Latest Contact Info) Description 12/10/2021 11:42 AM CDT - 12/10/2021 11:59 PM CDT Hospital Encounter [facility] [place] [address] Carcinoid tumor of right lung; Radiotherapy follow-up [...] on file 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 Gender Identity Not on file Sexual [...] POC 0.9 0.7 - 1.3 mg/dL [facility] Blood 12/10/2021 11:5 7 AM CDT 12/10/2021 11:57 AM CDT us Kip Del Rio MD LAB POCT ORDERABLES - XIOMARA CE Final Result [facility] One [facility] Department [place] [address] documented in this encounter Visit Diagnoses Diagnosis [...] 1 documented in this encounter Care Teams Powdered Sugar Supervisor Relationship Specialty Start Date End Date Clara Stanley PA [address] [place] [address] PCP - General Nurse Practitioner 04/05/19 Jasper Canchola MD [address] [place] [address] Surgeon Thoracic Surgery 05/11/19 Alexis Lopez MD [address] [address] Technical Operations Manager Pulmonary Disease 05/11/19 Kip Del Rio MD [address] [place] [address] [place] [address] Medical Oncologist/Strategic Sourcing Consultant Hematology and Oncology 05/11/19 Jacob Flynn MD [address] [facility] [address] LL [address] [place] [address] Radiation Oncologist Radiation Oncology 05/25/19 documented as of this encounter
--- OUTSIDE RECORDS SUMMARY | 2024-03-02 04:20 | XMS_ITS | Encounter Summary ---
Author Organization [facility] Address [address] [facility] [address] [place] [address] Care Team Providers Care Fire Sprinkler Service Technician Name Role Phone Clara Stanley Primary Care Provider + Jasper aCnchola MD Unavailable Alexis Lopez MD Unavailable [phone] Kip Del Rio MD Unavailable Jacob Flynn MD Unavailable Reason for Visit * Reason Onset Date Comments Medication Request 03/13/2022 Encounter Details Date Type Department Care Team (Late st Contact Info) Description 03/13/2022 Telephone [facility] Pulmonology [address] [facility] [address] [place] [address] Alexis Lopez MD [address] [facility] [address] [place] [address] Medication Request Social History Tobacco Use Types [...] on file 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 FER * Telephone Encounter - Noemi Leslie - 03/13/2022 10:24 AM CST Pt called stated that her has had an cough since before and now the cough isgetting worse he is also having drainage wanted to know if provider would send out steroids or something please advise thanks FER documented in this encounter Plan of Treatment Not on file documented as of this encounter Visit Diagnoses Not on filedocumented in this encounter Care Teams Fire Sprinkler Service Technician Relationship Specialty Start Date End Date Clara Stanley PA [address] [place] [address] PCP - General Nurse Practitioner 04/05/19 Jasper Canchola MD [address] [place] [address] [place] [address] Surgeon Thoracic Surgery 05/11/19 Alexis Lopez MD [address] [address] Construction Equipment Mechanic Helper Pulmonary Disease 05/11/19 Kip Del Rio MD [address] [facility] [address] [place] [address] Medical Oncologist/Mine Wirer Hematology and Oncology 05/11/19 Jacob Flynn MD [address] [facility] [address] [place] [address] Radiation Oncologist Radiation Oncology 05/25/19 documented as of this encounter
--- OUTSIDE RECORDS SUMMARY | 2024-03-02 04:20 | XMS_ITS | Encounter Summary ---
Author Organization [facility] Address [address] [facility] [address] [place] [address] Care Team Providers Care Department Mgr Name Role Phone Clara Stanley Primary Care Provider + Jasper Canchola MD Unavailable Alexis Lopez MD Unavailable [phone] Kip Del Rio MD Unavailable [phone] Jacob Flynn MD Unavailable Reason for Referral * Procedure (Routine) - Closed Specialty Diagnoses / Procedures Referred By Erik galdamez Referred To Contact Diagnoses Mild intermittent asthma without complication Procedures Pulmonary Function Test -[facility]; Full PFT in PFT Lab Shyla Shafer NP [address] [facility] [address] [place] [address] Phone: tel: fax: Referral ID Status Reason Start Date Expiration Date Visits Re quested Visits Authorized [id number] Closed 02/26/2022 03/28/2023 1 1 CTOR PAYER Reason for Visit * Reason Comments follow up Cough Encounter Details Date Type Department Care Team ([facility] Contact Info) Description 02/26/2022 2:15 PM DIRECTOR PAYER Office Visit [facility] Pulmonology [address] 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 on file Not on file documented as of this encounter Last Filed Vital Signs Vital Sign Reading Time Taken Comments Blood Pressure 153/89 02/26/2022 2:06 PM DIRECTOR PAYER Pulse 82 02/26/2022 2:06 PM DIRECTOR PAYER Temperature - - Respiratory Rate 18 02/26/2022 2:06 PM DIRECTOR PAYER Oxygen Saturation 97% 02/26/2022 2:06 PM DIRECTOR PAYER Inhaled Oxygen Concentration - - Weight 167.8 kg (370 lb) 02/26/2022 2:06 PM DIRECTOR PAYER Height 190.5 cm (6' 3 ) 02/26/2022 2:06 PM DIRECTOR PAYER Body Mass Index 46.25 02/26/2022 2:06 PM DIRECTOR PAYER documented in this encounter Ordered Prescriptions Prescription [...] this encounter Progress Notes * Shyla Shafer, TIRE REPAIRER - 02/26/2022 2:15 PM CST Images from [...] energy level is good. We discussed products [id number] for dry mouth. Patient states that he has had a chronic cough for at least 10 years. Has seen an insurance assistant in the past and did not react [...] by mouth nightly - Pulmonary Function Test -[facility]; Full PFT in PFT Lab; Future LEONOR [...] Alexis Lopez MD at 02/26/2022 3:30 PM DIRECTOR PAYER CTOR PAYER CTOR PAYER documented in this encounter Miscellaneous Notes * Assessment & Plan Note - Shyla Shafer NP - 02/26/2022 2:52 PM DIRECTOR PAYER Associated Problem(s): Cough, persistent Patient will continue treating the asthma with Trelegy or Symbicort, continue allergy medications and, continue acid reflux medications CTOR PAYER * Assessment & Plan Note - Shyla Shafer NP - 02/26/2022 2:50 PM DIRECTOR PAYER Associated Problem(s): Mild intermittent asthma without complication [...] Hui, IgE, Flonas e, and a PFT. CTOR PAYER * Assessment & Plan Note - Syhla Shafer NP - 02/26/2022 2:49 PM DIRECTOR PAYER Associated Problem(s): LEONOR (obstructive sleep apnea) Patient will continue with positional therapy. I did encourage the patient to resume CPAP therapy at an auto titrating range of 5-20 cm water pressure. CTOR PAYER * Assessment & Plan Note - Shyla Shafer NP - 02/26/2022 2:49 PM DIRECTOR PAYER Associated Problem(s): Lung mass (Deleted) Continues to follow with oncology and CT scanning CTOR PAYER documented in this encounter Plan of Treatment Not on file documented as of this encounter Results * IgE (06/06/2022 10:01 AM CDT) Pathologist [facility] IgE 26.2 1.0 - 100.0 IUnits/mL SEJAL Blood 06/06/2022 10:0 1 AM CDT 06/06/2022 10:35 AM CDT Shyla Shafer NP LAB BLOOD ORDERABLES Final Result [facility] [address] [facility] Department [place] [address] * Pulmonary Function Test - (04/18/2022 8:51 AM DIRECTOR PAYER) Pathologist [facility] FVC POST 3.69 L 04/18/2022 8:50 AM DIRECTOR PAYER [facility] FVC PRE 3.73 L 04/18/2022 8:50 AM DIRECTOR PAYER [facility] FEV1 POST 2.85 L 04/18/2022 8:50 AM DIRECTOR PAYER [facility] FEV1 PRE 2.85 L 04/18/2022 8:50 AM DIRECTOR PAYER [facility] [id number] 77.28 % 04/18/2022 8:50 AM DIRECTOR PAYER [facility] [id number] 76.56 % 04/18/2022 8:50 AM DIRECTOR PAYER [facility] THV15-37% POST 2.56 L/s 04/18/2022 8:50 AM DIRECTOR PAYER [facility] WQG71-61% PRE 2.41 L/s 04/18/2022 8:50 AM DIRECTOR PAYER [facility] PEF POST 6.65 L/s 04/18/2022 8:50 AM DIRECTOR PAYER [facility] PEF PRE 6.06 L/s 04/18/2022 8:50 AM DIRECTOR PAYER [facility] FET 100% POST 9.44 sec 04/18/2022 8:50 AM DIRECTOR PAYER [facility] FET 100% PRE 8.58 sec 04/18/2022 8:50 AM DIRECTOR PAYER [facility] FIVC POST 3.32 L 04/18/2022 8:50 AM DIRECTOR PAYER [facility] FIVC PRE 3.35 L 04/18/2022 8:50 AM DIRECTOR PAYER [facility] FIF50% POST 4.18 L/s 04/18/2022 8:50 AM DIRECTOR PAYER [facility] FIF50% PRE 4.49 L/s 04/18/2022 8:50 AM [facility] VC PRE 3.81 L 04/18/2022 8:50 AM [facility] TLC PRE 5.46 L 04/18/2022 8:50 AM [facility] RV PRE 1.66 L 04/18/2022 8:50 AM [facility] FRC PL PRE 2.96 L 04/18/2022 8:50 AM [facility] ERV PRE 1.31 L 04/18/2022 8:50 AM [facility] IC PRE 2.46 L 04/18/2022 8:50 AM [facility] RAW PRE 3.38 cmH2O*s/L 04/18/2022 8:50 AM [facility] BF RES 32.05 BPM 04/18/2022 8:50 AM DIRECTOR PAYER [facility] VTG RAW 3.14 L 04/18/2022 8:50 AM DIRECTOR PAYER [facility] VTG 3.14 L 04/18/2022 8:50 AM DIRECTOR PAYER [facility] DLCOc SB 27.30 ml/(min*mm Hg) 04/18/2022 8:50 AM DIRECTOR PAYER [facility] DLCOc SB 27.30 ml/(min*mm Hg) 04/18/2022 8:50 AM [facility] VA 4.75 L 04/18/2022 8:50 AM [facility] DLCO/VA PRE 5.75 ml/(min*mm Hg*L) 04/18/2022 8:50 AM [facility] DLCOc SB 5.75 ml/(min*mm Hg*L) 04/18/2022 8:50 AM [facility] Anatomical Region Laterality Modality PFT 04/18/2022 8:00 AM DIRECTOR PAYER Narrative 04/18/2022 11:55 AM [facility] Impression: Normal spirometry without any evidence of obstruction or change post bronchodilator therapy. Lung volumes demonstrate moderate restrictive ventilatory impairment, likely contributed by elevated BMI. DLCO is normal without any evidence of diffusion impairment. Electronically signed by Blair Cooley MD, [facility] Pulmonary and Critical Care Medicine [facility] Shyla Shafer TIRE REPAIRER PFT ORDERABLES Final Resul t documented in [...] 02/12/2022 added in this encounter Care Teams Department Mgr Relationship Specialty Start Date End Date Clara Stanley PA [address] [place] [address] PCP - General Nurse Practitioner 04/05/19 Jasper Canchola MD [address] [place] [address] Surgeon Thoracic Surgery 05/11/19 Alexis Lopez MD [address] [address] Benzene Washer Pulmonary Disease 05/11/19 Kip Del Rio MD [address] [facility] [address] [place], [place] [id number] Medical Oncologist/Tax Compliance Manager Hematology and Oncology 05/11/19 Jacob Flynn MD [address] [facility] [address] [place] [address] Radiation Oncologist Radiation Oncology 05/25/19 documented as of this encounter
--- OUTSIDE RECORDS SUMMARY | 2024-03-02 04:21 | XMS_ITS | Encounter Summary ---
Author Organization [facility] Address [address] [place] [address] Care Team Providers Care Er Physician Name Role Phone Clara Stanley Primary Care Provider + Jasper Canchola MD Unavailable Alexis Lopez MD Unavailable Kip Del Rio MD Unavailable Jacob Flynn MD Unavailable [phone] Encounter Details Date Type Department Care Team (Late st Contact Info) Description 06/06/[address] [facility] Advanced Medicine Radiation Oncology [address] 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 Gender Identity Not on file Sexual Orientation [...] on filedocumented in this encounter Care Teams Er Physician Relationship Specialty Start Date End Date Clara Stanley PA [address] [place] [address] PCP - General Nurse Practitioner 04/05/19 Jasper Canchola MD [address] [place] [address] Surgeon Thoracic Surgery 05/11/19 Alexis Lopez MD [address] [facility] [address] [address] Windows Server Support Technician Pulmonary Disease 05/11/19 Kip Del Rio MD [address] [facility] [address] [place], [place] [id number] Medical Oncologist/Catering Sales Manager Hematology and Oncology 05/11/19 Jacob Flynn MD [address] [facility] [address] [place] [address] Radiation Oncologist Radiation Oncology 05/25/19 documented as of this encounter
--- OUTSIDE RECORDS SUMMARY | 2024-03-02 04:21 | XMS_ITS | Encounter Summary ---
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 on file Not on file documented as of this encounter Plan of Treatment Not on file documented as of this encounter Procedures Procedure Name Priority Date/Time Associated Diagnosis Comments RAD ONC ARIA SESSION SUMMARY 02/18/2021 7:27 AM PATROL JUDGE documented in this encounter Results * RAD ONC ARIA SESSION SUMMARY (02/18/2021 7:27 AM PATROL JUDGE) Course Name [id number] ARIA Course Plan Date 01/18/2021 1:45 PM ARIA Elapsed Days 18 ARIA Treatment Start Date 01/31/2021 ARIA Treatment Site lung dpv ARIA Dose Given To Date (cGy) 4,800 ARIA Session Dosage Given (cGy) 400 ARIA Plan ID MEDIASTINUM ARIA Fractions Treated 12 ARIA Prescribed Dose Per Fraction (cGy) 400 ARIA Prescribed Total Dose (cGy) 6,000 ARIA 02/18/2021 7:27 AM PATROL JUDGE us Not In File Miscellaneous RADIATION ONCOLOGY ORD ERABLES Final Result ARIA documented in this encounter Visit Diagnoses Not on filedocumented in this encounter Care Teams Paint Sprayer Sandblaster Relationship Specialty Start Date End Date Clara Stanley PA [address] [place] [address] PCP - General Nurse Practitioner 04/05/19 Jasper Canchola MD [address] [place] [address] Surgeon Thoracic Surgery 05/11/19 Alexis Lopez MD [address] [facility] [address] [address] Police Records Clerk Pulmonary Disease 05/11/19 Kip Del Rio MD [address] [facility] [address] [place] [address] Medical Oncologist/Yard Hostler Hematology and Oncology 05/11/19 Jacob Flynn MD [address] [facility] [address] [place] [address] Radiation Oncologist Radiation Oncology 05/25/19 documented as of this encounter
--- OUTSIDE RECORDS SUMMARY | 2024-03-02 04:21 | XMS_ITS | Encounter Summary ---
Author Organization [facility] Healthcare Address [address] [place] [address] Care Team Providers Care Tool Grinder Operator Name Role Phone Clara Stanley Primary Care Provider + Jasper Canchola MD Unavailable Alexis Lopez MD Unavailable Kip Del Rio MD Unavailable Jacob Flynn MD Unavailable Reason for Visit * Reason Comments OTV Encounter Details Date Type Department Care Team (Late st Contact Info) Description 02/06/[address] [facility] Advanced Medicine Radiation Oncology [address] [facility] [place] [address] Rosangela Perla MD [address] [place] [address] Neuroendocrine carcinoma of lung (CMS/HCC) (HCC) (Primary [...] on file Legal Sex Male 1:17 AM COMPLIANCE MANAGER Gender Identity Not on file Sexual [...] (360 lb 12.8 oz) 2020 11:34 AM COMPLIANCE MANAGER Height - - Body Mass Index 45.1 01/08/2021 10:31 AM CDT documented in this encounter Progress Notes * Rosangela Perla MD - 02/06/2021 11:33 AM CST Radiation Oncologist: Jacob Flynn MD Primary Care Physician: Clara Stanley PA Medical Oncologist: Kip Del Rio MD Surgeon: Jaspre Canchola MD Date of Service: 02/06/2021 RADIATION [...] in pain management. Rosangela Perla MD, MPHS [employer] [place] Leader of Radiation Oncology [facility] in [place] LIANCE MANAGER documented in this encounter Plan of Treatment Not on file documented as of this encounter Visit Diagnoses Diagnosis Neuroendocrine carcinoma of lung (HCC)- Primary documented in this encounter Care Teams Tool Grinder Operator Relationship Specialty Start Date End Date Clara Stanley PA [address] [place] [address] PCP - General Nurse Practitioner 04/05/19 Jasper Canchola MD [address] [place] [address] Surgeon Thoracic Surgery 05/11/19 Alexis Lopez MD [address] [address] Meal Miller Pulmonary Disease 05/11/19 Kip Del Rio MD [address] [facility] [address] [place] [address] Medical Oncologist/Principal Electrical Engineer Hematology and Oncology 05/11/19 Jacob Flynn MD [address] [facility] [address] [place] [address] Radiation Oncologist Radiation Oncology 05/25/19 documented as of this encounter
--- OUTSIDE RECORDS SUMMARY | 2024-03-02 04:21 | XMS_ITS | Encounter Summary ---
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 DEVELOPER Gender Identity Not on file Sexual [...] ONC ARIA SESSION SUMMARY 02/12/2021 7:16 AM DATACAP DEVELOPER documented in this encounter Results * RAD ONC ARIA SESSION SUMMARY (02/12/2021 7:16 AM DATACAP DEVELOPER) Course Name [id number] ARIA Course Plan Date 01/18/2021 1:45 PM ARIA Elapsed Days 12 ARIA Treatment Start Date 01/31/2021 ARIA Treatment Site lung dpv ARIA Dose Given To Date (cGy) 3,200 ARIA Session Dosage Given (cGy) 400 ARIA Plan ID MEDIASTINUM ARIA Fractions Treated 8 ARIA Prescribed Dose Per Fraction (cGy) 400 ARIA Prescribed Total Dose (cGy) 6,000 ARIA 02/12/2021 7:16 AM DATACAP DEVELOPER us Not In File Miscellaneous RADIATION ONCOLOGY ORD ERABLES Final Result ARIA documented in this encounter Visit Diagnoses Not on filedocumented in this encounter Care Teams Detective Captain Relationship Specialty Start Date End Date Clara Stanley PA [address] [place] [address] PCP - General Nurse Practitioner 04/05/19 Jasper Canchola MD [address] [place] [address] Surgeon Thoracic Surgery 05/11/19 Alexis Lopez MD [address] [facility] [address] [address] Barrel Lathe Operator Inside Pulmonary Disease 05/11/19 Kip Del Rio MD [address] [facility] [address] [place] [address] Medical Oncologist/Classified Copy Control Clerk Hematology and Oncology 05/11/19 Jacob Flynn MD [address] [facility] [address] [place] [address] Radiation Oncologist Radiation Oncology 05/25/19 documented as of this encounter
--- OUTSIDE RECORDS SUMMARY | 2024-03-02 04:21 | XMS_ITS | Encounter Summary ---
Author Organization [facility] Healthcare Address [address] [place] [address] Care Team Providers Care Palliative Care Coordinator Name Role Phone Clara Stanley Primary Care Provider + Jasper Canchola MD Unavailable Alexis Lopez MD Unavailable Kip Del Rio MD Unavailable Jacob Flynn MD Unavailable Encounter Details Date Type Department Care Team (Late st Contact Info) Description 02/20/2021 OTV [facility] Advanced Medicine Radiation Oncology [address] [facility] Advanced Medicine [place] [address] Jacob Flynn MD [address] [facility] [address] [place] [address] Social History Tobacco Use Types Packs/Day Years [...] on file Legal 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 I agree with the findings and plan of care as documented in the resident/fellow's note. documented in this encounter Plan of Treatment Not on file documented as of this encounter Visit Diagnoses Not on filedocumented in this encounter Care Teams Palliative Care Coordinator Relationship Specialty Start Date End Date Clara Stanley PA [address] [place] [address] PCP - General Nurse Practitioner 04/05/19 Jasper Canchola MD [address] [place] [address] Surgeon Thoracic Surgery 05/11/19 Alexis Lopez MD [address] [facility] [address] [address] Assembly Leader Pulmonary Disease 05/11/19 Kip Del Rio MD [address] [facility] [address] [place], [place] [id number] Medical Oncologist/Hot Strip Mill Supervisor Hematology and Oncology 05/11/19 Jacob Flynn MD [address] [facility] [address] [place], [place] [id number] Radiation Oncologist Radiation Oncology 05/25/19 documented as of this encounter
--- OUTSIDE RECORDS SUMMARY | 2024-03-02 04:21 | XMS_ITS | Encounter Summary ---
Author Organization [facility] Healthcare Address [address] [place] [address] Care Team Providers Care Pharmacy Benefits Coordinator Name Role Phone Clara Stanley Primary Care Provider + Jasper Canchola MD Unavailable Alexis Lopez MD Unavailable [phone] Kip Del Rio MD Unavailable Jacob Flynn MD Unavailable Encounter Details Date Type Department Care Team (Late st Contact Info) Description 02/13/2021 7:00 AM HEEL SEAT POUNDER Treatment [facility] Radiation Oncology [address] [facility] [place] [address] Social History Tobacco Use Types Packs/Day Years [...] file Legal Sex Male 1:17 AM HEEL SEAT POUNDER Gender Identity Not on file Sexual Orientation Straight 09/22/2019 8: 21 PM CDT 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 on file Not on file documented as of this encounter Plan of Treatment Not on file documented as of this encounter Visit Diagnoses Not on filedocumented in this encounter Care Teams Pharmacy Benefits Coordinator Relationship Specialty Start Date End Date Clara Stanley PA [address] [place] [address] PCP - General Nurse Practitioner 04/05/19 Jasper Canchola MD [address] [place] [address] Surgeon Thoracic Surgery 05/11/19 Alexis Lopez MD [address] [address] Needle Punch Machine Operator Helper Pulmonary Disease 05/11/19 Kip Del Rio MD [address] [facility] [address] [place] [address] Medical Oncologist/Size Roller Operator Hematology and Oncology 05/11/19 Jacob Flynn MD [address] [facility] [address] [place] [address] Radiation Oncologist Radiation Oncology 05/25/19 documented as of this encounter
--- OUTSIDE RECORDS SUMMARY | 2024-03-02 04:21 | XMS_ITS | Encounter Summary ---
Author Organization [facility] Address [address] [place] [address] Care Team Providers Care Field Software Engineer Name Role Phone Clara Stanley Primary Care Provider + Jasper Canchola MD Unavailable Alexis Lopez MD Unavailable [phone] Kip Del Rio MD Unavailable Jacob Flynn MD Unavailable Reason for Referral * MRI/CAT/PET Scan (Routine) - Closed Specialty Diagnoses / Procedures Referred By Erik galdamez Referred To Contact Radiology Diagnoses 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) Radiotherapy follow-up examination Procedures CT Chest Abdomen Pelvis W Contrast Julia Mckenna NP Phone: tel: fax: [address] [phone] Referral ID Status Reason Start Date Expiration Date Visits Re quested Visits Authorized [id number] Closed 09/09/2021 03/08/2022 1 1 Encounter Details Date Type Department Care Team (Late st Contact Info) Description 07/08/2021 Orders Only [facility] Advanced Medicine Radiation Oncology [address] [place] [address] Amelie Lorenzo MA Neuroendocrine carcinoma of lung [...] on file Legal Sex Male 1:17 AM SKETCH MAKER Gender Identity Not on file Sexual Orientation [...] Kwaku Grace M.D. us Julia Neeta Clarisa DANCE DIRECTOR IMG CT PROCEDURES Final R esult documented in this encounter Visit Diagnoses Diagnosis Neuroendocrine carcinoma of lung (HCC)- Primary Malignant neoplasm of lower lobe of right lung (HCC) Radiotherapy follow-up examination 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) Radiotherapy follow-up examination documented in this encounter Care Teams Field Software Engineer Relationship Specialty Start Date End Date Clara Stanley PA [address] [place] [address] PCP - General Nurse Practitioner 04/05/19 Jasper Canchola MD [address] [place] [address] Surgeon Thoracic Surgery 05/11/19 Alexis Lopez MD [address] [address] Distillation Operator Helper Pulmonary Disease 05/11/19 Kip Del Rio MD [address] [facility] [address] [place], [place] [phone] Medical Oncologist/Commercial Loan Closer Hematology and Oncology 05/11/19 Jacob Flynn MD [address] [facility] [address] [place] [address] Radiation Oncologist Radiation Oncology 05/25/19 documented as of this encounter
--- OUTSIDE RECORDS SUMMARY | 2024-03-02 04:21 | XMS_ITS | Encounter Summary ---
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 on file Not on file documented as of this encounter Plan of Treatment Not on file documented as of this encounter Procedures Procedure Name Priority Date/Time Associated Diagnosis Comments RAD ONC ARIA SESSION SUMMARY 02/20/2021 7:25 AM PARTY PLAN SALES UNIT ADVISOR documented in this encounter Results * RAD ONC ARIA SESSION SUMMARY (02/20/2021 7:25 AM PARTY PLAN SALES UNIT ADVISOR) Course Name [id number] ARIA Course Plan Date 01/18/2021 1:45 PM ARIA Elapsed Days 20 ARIA Treatment Start Date 01/31/2021 ARIA Treatment Site lung dpv ARIA Dose Given To Date (cGy) 5,600 ARIA Session Dosage Given (cGy) 400 ARIA Plan ID MEDIASTINUM ARIA Fractions Treated 14 ARIA Prescribed Dose Per Fraction (cGy) 400 ARIA Prescribed Total Dose (cGy) 6,000 ARIA 02/20/2021 7:25 AM PARTY PLAN SALES UNIT ADVISOR us Not In File Miscellaneous RADIATION ONCOLOGY ORD ERABLES Final Result ARIA documented in this encounter Visit Diagnoses Not on filedocumented in this encounter Care Teams Blueprint Processor Relationship Specialty Start Date End Date Clara Stanley PA [address] [place] [address] PCP - General Nurse Practitioner 04/05/19 Jasper Canchola MD [address] [place] [address] Surgeon Thoracic Surgery 05/11/19 Alexis Lopez MD [address] [facility] [address] [address] Truck Driver Teamster Pulmonary Disease 05/11/19 Kip Del Rio MD 49[address] [facility] [address] [place] [address] Medical Oncologist/Magnetic Prospecting Operator Hematology and Oncology 05/11/19 Jacob Flynn MD 4921 [facility] [address] [place] [address] Radiation Oncologist Radiation Oncology 05/25/19 documented as of this encounter
--- OUTSIDE RECORDS SUMMARY | 2024-03-02 04:21 | XMS_ITS | Encounter Summary ---
Author Organization [facility] Healthcare Address [address] [place] [address] Care Team Providers Care Electrical Maintenance Man Name Role Phone Clara Stanley Primary Care Provider + Jasper Canchola MD Unavailable Alexis Lopez MD Unavailable Kip Del Rio MD Unavailable Jacob Flynn MD Unavailable Encounter Details Date Type Department Care Team (Late st Contact Info) Description 02/27/2021 Orders Only [facility] Advanced Medicine Radiation Oncology [address] [facility] [place] [address] Amelie Lorenzo MA Neuroendocrine carcinoma of lung [...] on file Legal Sex Male 1:17 AM ZIPPER JOINER Gender Identity Not on file Sexual Orientation [...] nodes documented in this encounter Care Teams Electrical Maintenance Man Relationship Specialty Start Date End Date Clara Stanley PA [address] [place] [address] PCP - General Nurse Practitioner 04/05/19 Jasper Canchola MD [address] [place] [address] Surgeon Thoracic Surgery 05/11/19 Alexis Lopez MD [address] [address] Wharf Labourer Pulmonary Disease 05/11/19 Kip Del Rio MD [address] [facility] [address] [place] [address] Medical Oncologist/Building Services Coordinator Hematology and Oncology 05/11/19 Jacob Flynn MD [address] [facility] [address] [place] [address] Radiation Oncologist Radiation Oncology 05/25/19 documented as of this encounter
--- OUTSIDE RECORDS SUMMARY | 2024-03-02 04:21 | XMS_ITS | Encounter Summary ---
Author Organization [facility] Address [address] [place] [address] Care Team Providers Care Supervisor Delivery Department Name Role Phone Clara Stanley Primary Care Provider + Jasper Canchola MD Unavailable Alexis Lopez MD Unavailable [phone] Kip Del Rio MD Unavailable Jacob Flynn MD Unavailable [phone] Encounter Details Date Type Department Care Team [...] on file Legal Sex Male 1:17 AM TIRE CARE MANAGER Gender Identity Not on file [...] ONC ARIA SESSION SUMMARY 02/15/2021 7:26 AM TIRE CARE MANAGER documented in this encounter Results * RAD ONC ARIA SESSION SUMMARY (02/15/2021 7:26 AM TIRE CARE MANAGER) Course Name [id number] ARIA Course [...] Dose (cGy) 6,000 ARIA 02/15/2021 7:26 AM TIRE CARE MANAGER us Not In File Miscellaneous RADIATION ONCOLOGY ORD ERABLES Final Result ARIA documented in this encounter Visit Diagnoses Not on filedocumented in this encounter Care Teams Supervisor Delivery Department Relationship Specialty Start Date End Date Clara Stanley PA [address] [place] [address] PCP - General Nurse Practitioner 04/05/19 Jasper Canchola MD [address] [place] [address] Surgeon Thoracic Surgery 05/11/19 Alexis Lopez MD 46[address] [facility] [address] [address] Beam Department Supervisor Pulmonary Disease 05/11/19 Kip Del Rio MD 4921 [facility] [address] [place] [address] Medical Oncologist/Manager Hvac Hematology and Oncology 05/11/19 Jacob Flynn MD 49[address] [facility] [address] [place] [address] Radiation Oncologist Radiation Oncology 05/25/19 documented as of this encounter
--- OUTSIDE RECORDS SUMMARY | 2024-03-02 04:21 | XMS_ITS | Encounter Summary ---
Author Organization [facility] Address [address] [place] [address] Care Team Providers Care Researcher Name Role Phone Clara Stanley Primary Care Provider + Jasper Canchola MD Unavailable Alexis Lopez MD Unavailable [phone] Kip Del Rio MD Unavailable Jacob Flynn [...] on file Legal Sex Male 1:17 AM RAKING MACHINE OPERATOR Gender Identity Not on file [...] ONC ARIA SESSION SUMMARY 02/19/2021 7:33 AM RAKING MACHINE OPERATOR documented in this encounter Results * RAD ONC ARIA SESSION SUMMARY (02/19/2021 7:33 AM RAKING MACHINE OPERATOR) Course Name [id number] ARIA Course Plan Date 01/18/2021 1:45 PM ARIA Elapsed Days 19 ARIA Treatment Start Date 01/31/2021 ARIA Treatment Site lung dpv ARIA Dose Given To Date (cGy) 5,200 ARIA Session Dosage Given (cGy) 400 ARIA Plan ID MEDIASTINUM ARIA Fractions Treated 13 ARIA Prescribed Dose Per Fraction (cGy) 400 ARIA Prescribed Total Dose (cGy) 6,000 ARIA 02/19/2021 7:33 AM RAKING MACHINE OPERATOR us Not In File Miscellaneous RADIATION ONCOLOGY ORD ERABLES Final Result ARIA documented in this encounter Visit Diagnoses Not on filedocumented in this encounter Care Teams Researcher Relationship Specialty Start Date End Date Clara Stanley PA [address] [place] [address] PCP - General Nurse Practitioner 04/05/19 Jasper Canchola MD [address] [place] [address] Surgeon Thoracic Surgery 05/11/19 Alexis Lopez MD 46[address] [facility] [address] [address] Die Inspector Pulmonary Disease 05/11/19 Kip Del Rio MD 4921 [facility] [address] [place] [address] Medical Oncologist/Pipe Bowl Paint Trimmer Hematology and Oncology 05/11/19 Jacob Flynn MD 49[address] [facility] [address] [place] [address] Radiation Oncologist Radiation Oncology 05/25/19 documented as of this encounter
--- OUTSIDE RECORDS SUMMARY | 2024-03-02 04:21 | XMS_ITS | Encounter Summary ---
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 on file Not on file documented as of this encounter Plan of Treatment Not on file documented as of this encounter Procedures Procedure Name Priority Date/Time Associated Diagnosis Comments RAD ONC ARIA SESSION SUMMARY 02/21/2021 7:35 AM FIRE EATER documented in this encounter Results * RAD ONC ARIA SESSION SUMMARY (02/21/2021 7:35 AM FIRE EATER) Course Name [id number] ARIA Course Plan Date 01/18/2021 1:45 PM ARIA Elapsed Days 21 ARIA Treatment Start Date 01/31/2021 ARIA Treatment Site lung dpv ARIA Dose Given To Date (cGy) 6,000 ARIA Session Dosage Given (cGy) 400 ARIA Plan ID MEDIASTINUM ARIA Fractions Treated 15 ARIA Prescribed Dose Per Fraction (cGy) 400 ARIA Prescribed Total Dose (cGy) 6,000 ARIA 02/21/2021 7:35 AM FIRE EATER us Not In File Miscellaneous RADIATION ONCOLOGY ORD ERABLES Final Result ARIA documented in this encounter Visit Diagnoses Not on filedocumented in this encounter Care Teams Monumental Stonemason Relationship Specialty Start Date End Date Clara Stanley PA [address] [place] [address] PCP - General Nurse Practitioner 04/05/19 Jasper Canchola MD [address] [place] [address] Surgeon Thoracic Surgery 05/11/19 Alexis Lopez MD 4600 [facility] [address] [address] Sixth Grade Teacher Pulmonary Disease 05/11/19 Kip Del Rio MD 4921 [facility] [address] [place] [address] Medical Oncologist/Sandfill Operator Hematology and Oncology 05/11/19 Jacob Flynn MD 49[address] [facility] [address] [place] [address] Radiation Oncologist Radiation Oncology 05/25/19 documented as of this encounter
--- OUTSIDE RECORDS SUMMARY | 2024-03-02 04:21 | XMS_ITS | Encounter Summary ---
Author Organization [facility] Healthcare Address [address] [place] [address] Care Team Providers Care Customer Engagement Representative Name Role Phone Clara Stanley Primary Care Provider + Jasper Canchola MD Unavailable Alexis Lopez MD Unavailable Kip Del Rio MD Unavailable Jacob Flynn MD Unavailable Encounter Details Date Type Department Care Team (Late st Contact Info) Description 02/11/2021 7:10 AM PIZZA HUT ASSISTANT Treatment [facility] Radiation Oncology [address] [facility] [place] [address] Social History Tobacco Use Types Packs/Day Years [...] on file Legal Sex Male 1:17 AM PIZZA HUT ASSISTANT Gender Identity Not on file Sexual Orientation Straight 09/22/2019 8: 21 PM CDT 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 on file Not on file documented as of this encounter Plan of Treatment Not on file documented as of this encounter Visit Diagnoses Not on filedocumented in this encounter Care Teams Customer Engagement Representative Relationship Specialty Start Date End Date Clara Stanley PA [address] [place] [address] PCP - General Nurse Practitioner 04/05/19 Jasper Canchola MD [address] [place] [address] Surgeon Thoracic Surgery 05/11/19 Alexis Lopez MD [address] [address] Digester Pulmonary Disease 05/11/19 Kip Del Rio MD [address] [facility] [address] [place] [address] Medical Oncologist/Associate Account Executive Hematology and Oncology 05/11/19 Jacob Flynn MD [address] [facility] [address] [place] [address] Radiation Oncologist Radiation Oncology 05/25/19 documented as of this encounter
--- OUTSIDE RECORDS SUMMARY | 2024-03-02 04:21 | XMS_ITS | Encounter Summary ---
Author Organization [facility] Healthcare Address [address] [place] [address] Care Team Providers Care Conduit Bender Name Role Phone Clara Stanley Primary Care Provider + Jasper Canchola MD Unavailable Alexis Lopez MD Unavailable Kip Del Rio MD Unavailable Jacob Flynn MD Unavailable [phone] Encounter Details Date Type Department Care Team (Late st Contact Info) Description 02/15/2021 7:20 AM MANAGER ENROLLMENT Treatment [facility] Radiation Oncology [address] [facility] [place] [address] Social History Tobacco Use Types Packs/Day Years [...] file Legal Sex Male 1:17 AM MANAGER ENROLLMENT Gender Identity Not on file Sexual Orientation Straight 09/22/2019 8: 21 PM CDT 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 on file Not on file documented as of this encounter Plan of Treatment Not on file documented as of this encounter Visit Diagnoses Not on filedocumented in this encounter Care Teams Conduit Bender Relationship Specialty Start Date End Date Clara Stanley PA [address] [place] [address] PCP - General Nurse Practitioner 04/05/19 Jasper Canchola MD [address] [place] [address] Surgeon Thoracic Surgery 05/11/19 Alexis Lopez MD [address] [address] Can Conveyor Feeder Pulmonary Disease 05/11/19 Kip Del Rio MD [address] [facility] [address] [place] [address] Medical Oncologist/Prop Worker Hematology and Oncology 05/11/19 Jacob Flynn MD [address] [facility] [address] [place] [address] Radiation Oncologist Radiation Oncology 05/25/19 documented as of this encounter
--- OUTSIDE RECORDS SUMMARY | 2024-03-02 04:21 | XMS_ITS | Encounter Summary ---
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 on file Not on file documented as of this encounter Plan of Treatment Not on file documented as of this encounter Procedures Procedure Name Priority Date/Time Associated Diagnosis Comments RAD ONC ARIA SESSION SUMMARY 02/11/2021 7:16 AM CELLULOID TRIMMER documented in this encounter Results * RAD ONC ARIA SESSION SUMMARY (02/11/2021 7:16 AM CELLULOID TRIMMER) Course Name [id number] ARIA Course Plan Date 01/18/2021 1:45 PM ARIA Elapsed Days 11 ARIA Treatment Start Date 01/31/2021 ARIA Treatment Site lung dpv ARIA Dose Given To Date (cGy) 2,800 ARIA Session Dosage Given (cGy) 400 ARIA Plan ID MEDIASTINUM ARIA Fractions Treated 7 ARIA Prescribed Dose Per Fraction (cGy) 400 ARIA Prescribed Total Dose (cGy) 6,000 ARIA 02/11/2021 7:16 AM CELLULOID TRIMMER us Not In File Miscellaneous RADIATION ONCOLOGY ORD ERABLES Final Result ARIA documented in this encounter Visit Diagnoses Not on filedocumented in this encounter Care Teams Jig And Fixture Builder Relationship Specialty Start Date End Date Clara Stanley PA [address] [place] [address] PCP - General Nurse Practitioner 04/05/19 Jasper Canchola MD [address] [place] [address] Surgeon Thoracic Surgery 05/11/19 Alexis Lopez MD 4600 [facility] [address] [address] It Architecture Consultant Pulmonary Disease 05/11/19 Kip Del Rio MD 4921 [facility] [address] [place] [address] Medical Oncologist/Credit Investigator Hematology and Oncology 05/11/19 Jacob Flynn MD 4921 [facility] # [address] LL [address] [place] [address] Radiation Oncologist Radiation Oncology 05/25/19 documented as of this encounter
--- OUTSIDE RECORDS SUMMARY | 2024-03-02 04:21 | XMS_ITS | Encounter Summary ---
Author Organization [facility] Healthcare Address [address] [place] [address] Care Team Providers Care Fruit Buyer Name Role Phone Clara Stanley Primary Care Provider + Jasper Canchola MD Unavailable Alexis Lopez MD Unavailable Kip Del Rio MD Unavailable Jacob Flynn MD Unavailable Encounter Details Date Type Department Care Team (Late st Contact Info) Description 02/14/2021 7:20 AM PASTING INSPECTOR Treatment [facility] Radiation Oncology [address] [facility] [place] [address] Social History Tobacco Use Types Packs/Day Years [...] on file Legal Sex Male 1:17 AM PASTING INSPECTOR Gender Identity Not on file Sexual Orientation Straight 09/22/2019 8: 21 PM CDT 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 on file Not on file documented as of this encounter Plan of Treatment Not on file documented as of this encounter Visit Diagnoses Not on filedocumented in this encounter Care Teams Fruit Buyer Relationship Specialty Start Date End Date Clara Stanley PA [address] [place] [address] PCP - General Nurse Practitioner 04/05/19 Jasper Canchola MD [address] [place] [address] Surgeon Thoracic Surgery 05/11/19 Alexis Lopez MD [address] [address] Park Worker Pulmonary Disease 05/11/19 Kip Del Rio MD [address] [facility] [address] [place] [address] Medical Oncologist/Fabrication Specialist Hematology and Oncology 05/11/19 Jacob Flynn MD [address] [facility] [address] [place] [address] Radiation Oncologist Radiation Oncology 05/25/19 documented as of this encounter
--- OUTSIDE RECORDS SUMMARY | 2024-03-02 04:21 | XMS_ITS | Encounter Summary ---
Author Organization [facility] Healthcare Address [address] [place] [address] Care Team Providers Care Trolley Wire Installer Name Role Phone Clara Stanley Primary Care Provider + Jasper Canchola MD Unavailable Alexis Lopez MD Unavailable Kip Del Rio MD Unavailable Jacob Flynn MD Unavailable Encounter Details Date Type Department Care Team (Late st Contact Info) Description 02/20/2021 7:20 AM STUDIO RECEPTIONIST Treatment [facility] Radiation Oncology [address] [facility] [place] [address] Social History Tobacco Use Types Packs/Day Years [...] on file Legal Sex Male 1:17 AM STUDIO RECEPTIONIST Gender Identity Not on file Sexual Orientation Straight 09/22/2019 8: 21 PM CDT 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 on file Not on file documented as of this encounter Plan of Treatment Not on file documented as of this encounter Visit Diagnoses Not on filedocumented in this encounter Care Teams Trolley Wire Installer Relationship Specialty Start Date End Date Clara Stanley PA [address] [place] [address] PCP - General Nurse Practitioner 04/05/19 Jasper Canchola MD [address] [place] [address] Surgeon Thoracic Surgery 05/11/19 Alexis Lopez MD [address] [address] Territory Account Representative Pulmonary Disease 05/11/19 Kip Del Rio MD [address] [facility] [address] [place] [address] Medical Oncologist/Duplication Specialist Hematology and Oncology 05/11/19 Jacob Flynn MD [address] [facility] [address] [place] [address] Radiation Oncologist Radiation Oncology 05/25/19 documented as of this encounter
--- OUTSIDE RECORDS SUMMARY | 2024-03-02 04:21 | XMS_ITS | Encounter Summary ---
Author Organization [facility] Healthcare Address [address] [place] [address] Care Team Providers Care Wringer And Setter Name Role Phone Clara Stanley Primary Care Provider + Jasper Canchola MD Unavailable Alexis Lopez MD Unavailable Kip Del Rio MD Unavailable Jacob Flynn MD Unavailable Encounter Details Date Type Department Care Team (Late st Contact Info) Description 02/19/2021 7:20 AM SANFORIZER Treatment [facility] Radiation Oncology [address] [facility] [place] [address] Social History Tobacco Use Types Packs/Day Years [...] on file Legal Sex Male 1:17 AM SANFORIZER Gender Identity Not on file Sexual Orientation Straight 09/22/2019 8: 21 PM CDT 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 on file Not on file documented as of this encounter Plan of Treatment Not on file documented as of this encounter Visit Diagnoses Not on filedocumented in this encounter Care Teams Wringer And Setter Relationship Specialty Start Date End Date Clara Stanley PA [address] [place] [address] PCP - General Nurse Practitioner 04/05/19 Jasper Canchola MD [address] [place] [address] Surgeon Thoracic Surgery 05/11/19 Alexis Lopez MD [address] [address] Party Plan Sales Director Pulmonary Disease 05/11/19 Kip Del Rio MD [address] [facility] [address] [place] [address] Medical Oncologist/Order Entry Clerk Hematology and Oncology 05/11/19 Jacob Flynn MD [address] [facility] [address] [place] [address] Radiation Oncologist Radiation Oncology 05/25/19 documented as of this encounter
--- OUTSIDE RECORDS SUMMARY | 2024-03-02 04:21 | XMS_ITS | Encounter Summary ---
Author Organization [facility] Healthcare Address [address] [place] [address] Care Team Providers Care Survey Questionnaire Designer Name Role Phone Clara Stanley Primary Care Provider + Jasper Canchola MD Unavailable Alexis Lopez MD Unavailable Kip Del Rio MD Unavailable Jacob Flynn MD Unavailable Encounter Details Date Type Department Care Team (Late st Contact Info) Description 05/24/2021 Telephone [facility] Advanced Medicine Radiation Oncology [address] [facility] Advanced Medicine [facility] [place] [address] Jacob Flynn MD 49[address] [facility] [address] [place] [address] Social History Tobacco Use Types Packs/Day Years [...] on file Legal Sex Male 1:[address] RESEARCHER Gender Identity Not on file Sexual Orientation Straight 09/22/2019 8: 21 PM CDT 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 Patient updated that [employer] was already aware and will be sending an appeal letter off today and that his office will be in touch. Patient verbalized understanding. D COURT RESEARCHER documented in this encounter Plan of Treatment Not on file documented as of this encounter Visit Diagnoses Not on filedocumented in this encounter Care Teams Survey Questionnaire Designer Relationship Specialty Start Date End Date Clara Stanley PA [address] [place] [address] PCP - General Nurse Practitioner 04/05/19 Jasper Canchola MD [address] [place] [address] Surgeon Thoracic Surgery 05/11/19 Alexis Lopez MD [address] [address] Interface Control Officer Pulmonary Disease 05/11/19 Kip Del Rio MD 49[address] [facility] [address] [place], [place] [id number] Medical Oncologist/Precision Optical Goods Worker Hematology and Oncology 05/11/19 Jacob Flynn MD [address] [facility] [address] [place], [place] [address] Radiation Oncologist Radiation Oncology 05/25/19 documented as of this encounter
--- OUTSIDE RECORDS SUMMARY | 2024-03-02 04:21 | XMS_ITS | Encounter Summary ---
Author Organization [facility] Address [address] [place] [address] Care Team Providers Care Correctional Program Officer Name Role Phone Clara Stanley Primary Care Provider + Jasper Canchola MD Unavailable Alexis Lopez MD Unavailable [phone] Kip Del Rio MD Unavailable Jacob Flynn [...] file Legal Sex Male 1:17 AM MEDICAL INSTRUMENT TECHNICIAN Gender Identity Not on file Sexual [...] ONC ARIA SESSION SUMMARY 02/13/2021 7:16 AM MEDICAL INSTRUMENT TECHNICIAN documented in this encounter Results * RAD ONC ARIA SESSION SUMMARY (02/13/2021 7:16 AM MEDICAL INSTRUMENT TECHNICIAN) Course Name [id number] ARIA Course Plan Date 01/18/2021 1:45 PM ARIA Elapsed Days 13 ARIA Treatment Start Date 01/31/2021 ARIA Treatment Site lung dpv ARIA Dose Given To Date (cGy) 3,600 ARIA Session Dosage Given (cGy) 400 ARIA Plan ID MEDIASTINUM ARIA Fractions Treated 9 ARIA Prescribed Dose Per Fraction (cGy) 400 ARIA Prescribed Total Dose (cGy) 6,000 ARIA 02/13/2021 7:16 AM MEDICAL INSTRUMENT TECHNICIAN us Not In File Miscellaneous RADIATION ONCOLOGY ORD ERABLES Final Result ARIA documented in this encounter Visit Diagnoses Not on filedocumented in this encounter Care Teams Correctional Program Officer Relationship Specialty Start Date End Date Clara Stanley PA [address] [place] [address] PCP - General Nurse Practitioner 04/05/19 Jasper Canchola MD [address] [place] [address] Surgeon Thoracic Surgery 05/11/19 Alexis Lopez MD [address] [facility] [address] [address] Overlock Hemmer Pulmonary Disease 05/11/19 Kip Del Rio MD 4921 [facility] [address] [place] [address] Medical Oncologist/Scrub Tech Hematology and Oncology 05/11/19 Jacob Flynn MD 4921 [facility] # LL LL [address] [place] [address] Radiation Oncologist Radiation Oncology 05/25/19 documented as of this encounter
--- OUTSIDE RECORDS SUMMARY | 2024-03-02 04:21 | XMS_ITS | Encounter Summary ---
Author Organization [facility] Address [address] [place] [address] Care Team Providers Care Landscape Architect Name Role Phone Clara Stanley Primary Care Provider + Jasper Canchola MD Unavailable Alexis Lopez MD Unavailable Kip Del Rio MD Unavailable Jacob Flynn MD Unavailable Encounter Details Date Type Department Care Team (Late st Contact Info) Description 02/13/2021 OTV [facility] Radiation Oncology [address] [facility] [place] [place] [address] Ayala Martinez RN Social History Tobacco Use [...] file Legal Sex Male 1:17 AM STAFF COMBAT INFORMATION CENTER OFFICER Gender Identity Not on file Sexual [...] 163.3 kg (360 lb) 02/13/2021 7:44 AM STAFF COMBAT INFORMATION CENTER OFFICER Height - - Body Mass Index 45 [...] Stereotactic Body Radiotherapy Department of Radiation Oncology F COMBAT INFORMATION CENTER OFFICER documented in this encounter Plan of Treatment Not on file documented as of this encounter Visit Diagnoses Not on filedocumented in this encounter Care Teams Landscape Architect Relationship Specialty Start Date End Date Clara Stanley PA [address] [place] [address] PCP - General Nurse Practitioner 04/05/19 Jasper Canchola MD [address] [place] [address] Surgeon Thoracic Surgery 05/11/19 Alexis Lopez MD [address] [address] Law Tutor Pulmonary Disease 05/11/19 Kip Del Rio MD [address] [facility] [address] [place] [address] Medical Oncologist/Outside Sales Consultant Hematology and Oncology 05/11/19 Jacob Flynn MD [address] [facility] [address] LL [address] [place] [address] Radiation Oncologist Radiation Oncology 05/25/19 documented as of this encounter
--- OUTSIDE RECORDS SUMMARY | 2024-03-02 04:21 | XMS_ITS | Encounter Summary ---
Author Organization [facility] Address [address] [place] [address] Care Team Providers Care Wildlife Policy Professional Name Role Phone Clara Stanley Primary Care Provider + Jasper Canchola MD Unavailable Alexis Lopez MD Unavailable [phone] Kip Del Rio MD Unavailable Jacob Flynn MD Unavailable [phone] Encounter Details Date Type Department Care Team [...] file Legal Sex Male 1:17 AM CIGAR MAKING MACHINE OPERATOR Gender Identity Not on file [...] ONC ARIA SESSION SUMMARY 02/06/2021 11:25 AM CIGAR MAKING MACHINE OPERATOR documented in this encounter Results * RAD ONC ARIA SESSION SUMMARY (02/06/2021 11:25 AM CIGAR MAKING MACHINE OPERATOR) Course Name [id number] ARIA Course [...] (cGy) 6,000 ARIA 02/06/2021 11:2 5 AM CIGAR MAKING MACHINE OPERATOR us Not In File Miscellaneous RADIATION ONCOLOGY ORD ERABLES Final Result ARIA documented in this encounter Visit Diagnoses Not on filedocumented in this encounter Care Teams Wildlife Policy Professional Relationship Specialty Start Date End Date Clara Stanley PA [address] [place] [address] PCP - General Nurse Practitioner 04/05/19 Jasper Canchola MD [address] [place] [address] Surgeon Thoracic Surgery 05/11/19 Alexis Lopez MD 4600 [facility] [address] [address] Produce Department Manager Pulmonary Disease 05/11/19 Kip Del Rio MD 4921 [facility] [address] [place] [address] Medical Oncologist/Licensed Architect Hematology and Oncology 05/11/19 Jacob Flynn MD 4921 [facility] # [address] LL [address] [place] [address] Radiation Oncologist Radiation Oncology 05/25/19 documented as of this encounter
--- OUTSIDE RECORDS SUMMARY | 2024-03-02 04:21 | XMS_ITS | Encounter Summary ---
Author Organization [facility] Address [address] [place] [address] Care Team Providers Care Computer Systems Design Analyst Name Role Phone Clara Stanley Primary Care Provider + Jasper Canchola MD Unavailable Alexis Lopez MD Unavailable [phone] Kip Del Rio MD Unavailable Jacob Flynn MD Unavailable [phone] Reason for Referral * MRI/CAT/PET Scan (Routine) - Closed Specialty Diagnoses / Procedures Referred By Erik galdamez Referred To Contact Radiology Diagnoses 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) Radiotherapy follow-up examination Procedures CT Chest Abdomen Pelvis W Contrast Julia Mckenna NP Phone: tel: fax: [address] [address] Referral ID Status Reason Start Date Expiration Date Visits Re quested Visits Authorized [id number] Closed 09/09/2021 03/08/2022 1 1 Reason for Visit * MRI/CAT/PET Scan (Routine) - Closed Specialty Diagnoses / Procedures Referred By Erik galdamez Referred To Contact Radiology Diagnoses 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) Radiotherapy follow-up examination Procedures CT Chest Abdomen Pelvis W Contrast Julia Mckenna NP Phone: tel: fax: [address] [address] Referral ID Status Reason Start Date Expiration Date Visits Re quested Visits Authorized [id number] Closed 09/09/2021 03/08/2022 1 1 Encounter Details Date Type Department Care Team (Latest Contact Info) Description 09/11/2021 12:25 PM CDT - 09/11/2021 11:59 PM CDT Hospital Encounter [facility] [address] [place] [address] Neuroendocrine carcinoma of lung (CMS/HCC) (HCC); [...] on file Legal Sex Male 1:17 AM DIPLOMATIC COURIER Gender Identity Not on file Sexual Orientation [...] POC 0.7 0.7 - 1.3 mg/dL [facility] Blood 09/11/2021 12:5 5 PM CDT 09/11/2021 12:55 PM CDT us Julia Mckenna NP LAB POCT ORDERABLES - DEV ICE Final Result [facility] Department [place] [address] documented in this encounter Visit Diagnoses Diagnosis [...] 09/11/2021 documented in this encounter Care Teams Computer Systems Design Analyst Relationship Specialty Start Date End Date Clara Stanley PA [address] [place] [address] PCP - General Nurse Practitioner 04/05/19 Jasper Canchola MD [address] [place] [address] Surgeon Thoracic Surgery 05/11/19 Alexis Lopez MD [address] [address] Office Asst Pulmonary Disease 05/11/19 Kip Del Rio MD [address] [facility] [address] [place] [address] Medical Oncologist/Jeweler Apprentice Hematology and Oncology 05/11/19 Jacob Flynn MD [address] [facility] [address] [place] [address] Radiation Oncologist Radiation Oncology 05/25/19 documented as of this encounter
--- OUTSIDE RECORDS SUMMARY | 2024-03-02 04:21 | XMS_ITS | Encounter Summary ---
Author Organization [facility] Address [address] [place] [address] Care Team Providers Care Licensed Vocational Nurse Name Role Phone Clara Stanley Primary Care Provider + Jasper Canchola MD Unavailable Alexis Lopez MD Unavailable [phone] Kip Del Rio MD Unavailable Jacob Flynn [...] on file Legal Sex Male 1:17 AM SECURITY INCIDENT RESPONSE ENGINEER Gender Identity Not on file Sexual [...] ONC ARIA SESSION SUMMARY 02/14/2021 7:29 AM SECURITY INCIDENT RESPONSE ENGINEER documented in this encounter Results * RAD ONC ARIA SESSION SUMMARY (02/14/2021 7:29 AM SECURITY INCIDENT RESPONSE ENGINEER) Course Name [id number] ARIA Course Plan Date 01/18/2021 1:45 PM ARIA Elapsed Days 14 ARIA Treatment Start Date 01/31/2021 ARIA Treatment Site lung dpv ARIA Dose Given To Date (cGy) 4,000 ARIA Session Dosage Given (cGy) 400 ARIA Plan ID MEDIASTINUM ARIA Fractions Treated 10 ARIA Prescribed Dose Per Fraction (cGy) 400 ARIA Prescribed Total Dose (cGy) 6,000 ARIA 02/14/2021 7:29 AM SECURITY INCIDENT RESPONSE ENGINEER us Not In File Miscellaneous RADIATION ONCOLOGY ORD ERABLES Final Result ARIA documented in this encounter Visit Diagnoses Not on filedocumented in this encounter Care Teams Licensed Vocational Nurse Relationship Specialty Start Date End Date Clara Stanley PA [address] [place] [address] PCP - General Nurse Practitioner 04/05/19 Jasper Canchola MD [address] [place] [address] Surgeon Thoracic Surgery 05/11/19 Alexis Lopez MD 4600 [facility] [address] [address] County Assessor Pulmonary Disease 05/11/19 Kip Del Rio MD 4921 [facility] [address] [place] [address] Medical Oncologist/Cisco Certified Network Professional Hematology and Oncology 05/11/19 Jacob Flynn MD 4921 [facility] # [address] LL [address] [place] [address] Radiation Oncologist Radiation Oncology 05/25/19 documented as of this encounter
--- OUTSIDE RECORDS SUMMARY | 2024-03-02 04:21 | XMS_ITS | Encounter Summary ---
Author Organization [facility] Address [address] [place] [address] Phone Care Team Providers Care Endband Sizer Name Role Phone Clara Stanley Primary Care Provider + Jasper Canchola MD Unavailable Alexis Lopez MD Unavailable Kip Del Rio MD Unavailable [phone] Jacob Flynn MD Unavailable Encounter Details Date Type Department Care Team (Late st Contact Info) Description 02/27/2021 Telephone [facility] Oncology [address] 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 Kulkarni [...] plan and I offered our ongoing support. SAFETY MANAGER documented in this encounter Plan of Treatment Not on file documented as of this encounter Visit Diagnoses Not on filedocumented in this encounter Care Teams Endband Sizer Relationship Specialty Start Date End Date Clara Stanley PA [address] [place] [address] PCP - General Nurse Practitioner 04/05/19 Jasper Canchola MD [address] [place] [address] Surgeon Thoracic Surgery 05/11/19 Alexis Lopez MD [facility] [address] [address] Tomographic Tech Pulmonary Disease 05/11/19 Kip Del Rio MD [address] [facility] [address] [place] [address] Medical Oncologist/Extension Service Specialist In Charge Hematology and Oncology 05/11/19 Jacob Flynn MD 4921 [facility] # LL LL [address] [place] [address] Radiation Oncologist Radiation Oncology 05/25/19 documented as of this encounter
--- OUTSIDE RECORDS SUMMARY | 2024-03-02 04:21 | XMS_ITS | Encounter Summary ---
Author Organization [facility] Address [address] [place] [address] Care Team Providers Care Pick Up Man Name Role Phone Clara Stanley Primary Care Provider + Jasper Canchola MD Unavailable Alexis Lopez MD Unavailable Kip Del Rio MD Unavailable Jacob Flynn MD Unavailable Encounter Details Date Type Department Care Team (Late st Contact Info) Description 02/18/2021 7:20 AM QUARTER SECTION IRONER Treatment [facility] Radiation Oncology [address] [facility] [place] [address] Social History Tobacco Use Types Packs/Day Years [...] on file Legal Sex Male 1:17 AM QUARTER SECTION IRONER Gender Identity Not on file Sexual Orientation Straight 09/22/2019 8: 21 PM CDT 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 on file Not on file documented as of this encounter Plan of Treatment Not on file documented as of this encounter Visit Diagnoses Not on filedocumented in this encounter Care Teams Pick Up Man Relationship Specialty Start Date End Date Clara Stanley PA [address] [place] [address] PCP - General Nurse Practitioner 04/05/19 Jasper Canchola MD [address] [place] [address] Surgeon Thoracic Surgery 05/11/19 Alexis Lopez MD [address] [address] Paper Bag Maker Pulmonary Disease 05/11/19 Kip Del Rio MD [address] [facility] [address] [place] [address] Medical Oncologist/Fermenter Operator Hematology and Oncology 05/11/19 Jacob Flynn MD [address] [facility] [address] LL [address] [place] [address] Radiation Oncologist Radiation Oncology 05/25/19 documented as of this encounter
--- OUTSIDE RECORDS SUMMARY | 2024-03-02 04:21 | XMS_ITS | Encounter Summary ---
Author Organization [facility] Address [address] [place] [address] Care Team Providers Care Base Manager Name Role Phone Clara Stanley Primary Care Provider + Jasper Canchola MD Unavailable Alexis Lopez MD Unavailable [phone] Kip Del Rio MD Unavailable Jacob Flynn [...] Contrast Julia Mckenna NP Phone: tel: fax: [address] [address] Referral ID Status Reason Start Date Expiration Date Visits Re quested Visits Authorized [id number] Closed 06/06/2021 07/06/2022 1 1 Encounter Details Date Type Department Care Team (Late st Contact Info) Description 06/06/2021 Orders Only [facility] Advanced Medicine Radiation Oncology [address] [place] [address] Amelie Lorenzo MA Neuroendocrine carcinoma of lung [...] file Legal Sex Male 1:17 AM CHIEF MARKETING OFFICER Gender Identity Not on file Sexual [...] nodes documented in this encounter Care Teams Base Manager Relationship Specialty Start Date End Date Clara Stanley PA [facility] [place] [address] PCP - General Nurse Practitioner 04/05/19 Jasper Canchola MD [address] [place] [address] Surgeon Thoracic Surgery 05/11/19 Alexis Lopez MD [address] [place] [address] [address] Clinical Data Research Pulmonary Disease 05/11/19 Kip Del Rio MD 4921 [facility] [address] [place] [address] Medical Oncologist/Technician Plant And Maintenance Hematology and Oncology 05/11/19 Jacob Flynn MD 4921 [facility] # [address] LL [address] [place] [address] Radiation Oncologist Radiation Oncology 05/25/19 documented as of this encounter
--- OUTSIDE RECORDS SUMMARY | 2024-03-02 04:21 | XMS_ITS | Encounter Summary ---
Author Organization [facility] Address [address] [place] [address] Care Team Providers Care Video Poker Floorman Name Role Phone Clara Stanley Primary Care Provider + Jasper Canchola MD Unavailable Alexis Lopez MD Unavailable [phone] Kip Del Rio MD Unavailable Jacob Flynn [...] Contrast Julia Mckenna NP Phone: tel: fax: [address] [address] Referral ID Status Reason Start Date Expiration Date Visits Re quested Visits Authorized [id number] Closed 06/06/2021 07/06/2022 1 1 Reason for Visit * MRI/CAT/PET Scan (Routine) - Closed Specialty Diagnoses / Procedures Referred By Erik galdamez Referred To Contact Radiology Diagnoses 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) Procedures CT Chest Abdomen Pelvis W Contrast Julia Mckenna NP Phone: tel: fax: [address] [address] Referral ID Status Reason Start Date Expiration Date Visits Re quested Visits Authorized [id number] Closed 06/06/2021 07/06/2022 1 1 Encounter Details Date Type Department Care Team (Latest Contact Info) Description 06/07/2021 9:28 AM CDT - 06/07/2021 11:59 PM CDT Hospital Encounter [facility] ([facility] [place] [address] Julia Mckenna NP [address] [place] [address] Neuroendocrine carcinoma of lung (CMS/HCC) [...] on file Legal Sex Male 1:17 AM GUNNERY/ORDNANCE OFFICER Gender Identity Not on file Sexual [...] POC 0.7 0.7 - 1.3 mg/dL [facility] Blood 06/07/2021 10:1 8 AM CDT 06/07/2021 10:18 AM CDT us Julia Mckenna JAVA WEB ARCHITECT LAB POCT ORDERABLES - DEV ICE Final Result [facility] One [facility] Department [place] [address] documented in this encounter Visit Diagnoses Diagnosis [...] 06/07/2021 documented in this encounter Care Teams Video Poker Floorman Relationship Specialty Start Date End Date Clara Stanley PA [address] [place] [address] PCP - General Nurse Practitioner 04/05/19 Jasper Canchola MD [address] [place] [address] Surgeon Thoracic Surgery 05/11/19 Alexis Lopez MD [address] [address] Ammonia Technician Pulmonary Disease 05/11/19 Kip Del Rio MD [address] [place] [address] Medical Oncologist/Flame Cutter Hematology and Oncology 05/11/19 [place] [address] [place] [address] [address] [place] [address] Radiation Oncologist Radiation Oncology 05/25/19 documented as of this encounter
--- OUTSIDE RECORDS SUMMARY | 2024-03-02 04:21 | XMS_ITS | Encounter Summary ---
Author Organization [facility] Address [address] [place] [address] Care Team Providers Care Railroad Construction Director Name Role Phone Clara Stanley Primary Care Provider + Jasper Canchola MD Unavailable Alexis Lopez MD Unavailable [phone] Kip Del Rio MD Unavailable Jacob Flynn MD Unavailable Encounter Details Date Type Department Care Team (Late st Contact Info) Description 02/21/2021 Completion of Therapy [facility] Advanced Medicine Radiation Oncology 49[address] [facility] Advanced Medicine [facility] [place] [address] Julia Mckenna, TJ [address] [facility] [address] [place] [address] Carcinoid tumor of right lung (Primary Dx); [...] on file Legal Sex Male 1:17 AM GENERAL SUPERINTENDENT Gender Identity Not on file Sexual Orientation [...] Jacob Flynn MD at 02/28/2021 10:55 PM GENERAL SUPERINTENDENT RAL SUPERINTENDENT RAL SUPERINTENDENT documented in this encounter Plan of Treatment Not on file documented as of this encounter Visit Diagnoses Diagnosis 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 documented in this encounter Care Teams Railroad Construction Director Relationship Specialty Start Date End Date Clara Stanley PA [address] [place] [address] PCP - General Nurse Practitioner 04/05/19 Jasper Canchola MD [address] [place] [address] Surgeon Thoracic Surgery 05/11/19 [place] [address] [place] [address] DR KAMAR [address] [place] [address] Mineral Ore Processing Labourer Pulmonary Disease 05/11/19 Kip Del Rio MD 4921 [facility] [address] [place] [address] Medical Oncologist/Electrician Refinery Hematology and Oncology 05/11/19 Jacob Flynn MD [address] [facility] # [address] LL [address] [place] [address] Radiation Oncologist Radiation Oncology 05/25/19 documented as of this encounter
--- OUTSIDE RECORDS SUMMARY | 2024-03-02 04:21 | XMS_ITS | Encounter Summary ---
Author Organization [facility] Address [address] [place] [address] Care Team Providers Care Marble Mechanic Helper Name Role Phone Clara Stanley Primary Care Provider + Jasper Canchola MD Unavailable Alexis Lopez MD Unavailable [phone] Kip Del Rio MD Unavailable Jacob Flynn [...] on file Legal Sex Male 1:17 AM GRADES 1 THRU 5 TEACHER Gender Identity Not on file Sexual [...] ONC ARIA SESSION SUMMARY 02/05/2021 1:43 PM GRADES 1 THRU 5 TEACHER documented in this encounter Results * RAD ONC ARIA SESSION SUMMARY (02/05/2021 1:43 PM GRADES 1 THRU 5 TEACHER) Course Name [id number]_RT_[id number]_[id number] ARIA Course Plan Date 01/18/2021 1:45 PM ARIA Elapsed Days 5 ARIA Treatment Start Date 01/31/2021 ARIA Treatment Site lung dpv ARIA Dose Given To Date (cGy) 2,000 ARIA Session Dosage Given (cGy) 400 ARIA Plan ID MEDIASTINUM ARIA Fractions Treated 5 ARIA Prescribed Dose Per Fraction (cGy) 400 ARIA Prescribed Total Dose (cGy) 6,000 ARIA 02/05/2021 1:43 PM GRADES 1 THRU 5 TEACHER us Not In File Miscellaneous RADIATION ONCOLOGY ORD ERABLES Final Result ARIA documented in this encounter Visit Diagnoses Not on filedocumented in this encounter Care Teams Marble Mechanic Helper Relationship Specialty Start Date End Date Clara Stanley PA [address] [place] [address] PCP - General Nurse Practitioner 04/05/19 Jasper Canchola MD [address] [place] [address] Surgeon Thoracic Surgery 05/11/19 Alexis Lopez MD 4600 [facility] [address] [address] Grants Director Pulmonary Disease 05/11/19 Kip Del Rio MD 4921 [facility] [address] [place] [address] Medical Oncologist/Pmo Project Manager Hematology and Oncology 05/11/19 Jacob Flynn MD 4921 [facility] [address] [place] [address] Radiation Oncologist Radiation Oncology 05/25/19 documented as of this encounter
--- OUTSIDE RECORDS SUMMARY | 2024-03-02 04:21 | XMS_ITS | Encounter Summary ---
Author Organization [facility] Healthcare Address [address] [place] [address] Care Team Providers Care Detention Worker Name Role Phone Clara Stanley Primary Care Provider + Jasper Canchola MD Unavailable Alexis Lopez MD Unavailable Kip Del Rio MD Unavailable Jacob Flynn MD Unavailable Encounter Details Date Type Department Care Team (Late st Contact Info) Description 02/26/2021 Orders Only [facility] Radiation Oncology [address] [facility] Advanced [facility] [place] [address] Jaocb Flynn MD [address] [facility] [address] [place] [address] Carcinoid tumor of right lung (Primary Dx); [...] on file Legal Sex Male 1:[address] OFFICER Gender Identity Not on file Sexual [...] nodes documented in this encounter Care Teams Detention Worker Relationship Specialty Start Date End Date Clara Stanley PA [address] [place] [address] PCP - General Nurse Practitioner 04/05/19 Jasper Canchola MD [address] [place] [address] Surgeon Thoracic Surgery 05/11/19 Alexis Lopez MD [address] [address] Event Planning Manager Pulmonary Disease 05/11/19 Kip Del Rio MD [address] [facility] [address] [place] [address] Medical Oncologist/Stumper Feller Hematology and Oncology 05/11/19 Jacob Flynn MD [address] [facility] [address] [place] [address] Radiation Oncologist Radiation Oncology 05/25/19 documented as of this encounter
--- OUTSIDE RECORDS SUMMARY | 2024-03-02 04:21 | XMS_ITS | Encounter Summary ---
Author Organization [facility] Healthcare Address [address] [place] [address] Care Team Providers Care Spine Surgeon Name Role Phone Clara Stanley Primary Care Provider + Jasper Canchola MD Unavailable Alexis Lopez MD Unavailable Kip Del Rio MD Unavailable Jacob Flynn MD Unavailable Encounter Details Date Type Department Care Team (Late st Contact Info) Description 02/06/2021 11:10 AM ARTIFICIAL STONE APPLICATOR Treatment [facility] Radiation Oncology [address] [facility] [place] [address] Social History Tobacco Use Types Packs/Day Years [...] on file Legal Sex Male 1:17 AM ARTIFICIAL STONE APPLICATOR Gender Identity Not on file Sexual Orientation Straight 09/22/2019 8: 21 PM CDT 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 on file Not on file documented as of this encounter Plan of Treatment Not on file documented as of this encounter Visit Diagnoses Not on filedocumented in this encounter Care Teams Spine Surgeon Relationship Specialty Start Date End Date Clara Stanley PA [address] [place] [address] PCP - General Nurse Practitioner 04/05/19 Jasper Canchola MD [address] [place] [address] Surgeon Thoracic Surgery 05/11/19 Alexis Lopez MD [address] [address] Independent Living Advisor Pulmonary Disease 05/11/19 Kip Del Rio MD [address] [facility] [address] [place] [address] Medical Oncologist/Meat Hanger Hematology and Oncology 05/11/19 Jacob Flynn MD [address] [facility] [address] [place] [address] Radiation Oncologist Radiation Oncology 05/25/19 documented as of this encounter
--- OUTSIDE RECORDS SUMMARY | 2024-03-02 04:21 | XMS_ITS | Encounter Summary ---
Author Organization [facility] Healthcare Address [address] [place] [address] Care Team Providers Care Jawbone Puller Name Role Phone Clara Stanley Primary Care Provider + Jasper Canchola MD Unavailable Alexis Lopez MD Unavailable Kip Del Rio MD Unavailable Jacob Flynn MD Unavailable Encounter Details Date Type Department Care Team (Late st Contact Info) Description 02/21/2021 7:20 AM JIG BORING MACHINE OPERATOR FOR METAL Treatment [facility] Radiation Oncology [address] [facility] Advanced [facility] [place] [address] Jacob Flynn MD 49[address] [facility] # [address] LL [address] [place] [address] Social History Tobacco Use Types Packs/Day Years [...] on file Legal Sex Male 1:17 AM JIG BORING MACHINE OPERATOR FOR METAL Gender Identity Not on file Sexual Orientation Straight 09/22/2019 8: 21 PM CDT 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 on file Not on file documented as of this encounter Plan of Treatment Not on file documented as of this encounter Visit Diagnoses Not on filedocumented in this encounter Care Teams Jawbone Puller Relationship Specialty Start Date End Date Clara Stanley PA [address] [place] [address] PCP - General Nurse Practitioner 04/05/19 Jasper Canchola MD [address] [place] [address] Surgeon Thoracic Surgery 05/11/19 Alexis Lopez MD [address] [address] Textile Engineer Pulmonary Disease 05/11/19 Kip Del Rio MD [address] [facility] [address] [place] [address] Medical Oncologist/Stock And Station Agent Hematology and Oncology 05/11/19 Jacob Flynn MD [address] [facility] [address] [place] [address] Radiation Oncologist Radiation Oncology 05/25/19 documented as of this encounter
--- OUTSIDE RECORDS SUMMARY | 2024-03-02 04:21 | XMS_ITS | Encounter Summary ---
Author Organization [facility] Healthcare Address [address] [place] [address] Care Team Providers Care Scaler Packer Name Role Phone Clara Stanley Primary Care Provider + Jasper Canchola MD Unavailable Alexis Lopez MD Unavailable Kip Del Rio MD Unavailable Jacob Flynn MD Unavailable Encounter Details Date Type Department Care Team (Late st Contact Info) Description 02/12/2021 7:00 AM MENTAL HEALTH AIDE Treatment [facility] Radiation Oncology [address] 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 on file Not on file documented as of this encounter Plan of Treatment Not on file documented as of this encounter Visit Diagnoses Not on filedocumented in this encounter Care Teams Scaler Packer Relationship Specialty Start Date End Date Clara Stanley PA [address] [place] [address] PCP - General Nurse Practitioner 04/05/19 Jasper Canchola MD [address] [place] [address] Surgeon Thoracic Surgery 05/11/19 Alexis Lopez MD [address] [address] Fashion Designer Pulmonary Disease 05/11/19 Kip Del Rio MD [address] [facility] [address] [place] [address] Medical Oncologist/Claims Associate Hematology and Oncology 05/11/19 Jacob Flynn MD [address] [facility] [address] LL [address] [place] [address] Radiation Oncologist Radiation Oncology 05/25/19 documented as of this encounter
--- OUTSIDE RECORDS SUMMARY | 2024-03-02 04:22 | XMS_ITS | Encounter Summary ---
Author Organization [facility] Healthcare Address [address] [place] [address] Care Team Providers Care Math Professor Name Role Phone Clara Stanley Primary Care Provider + Jasper Canchola MD Unavailable Alexis Lopez MD Unavailable Kip Del Rio MD Unavailable Jacob Flynn MD Unavailable Encounter Details Date Type Department Care Team (Late st Contact Info) Description 02/01/2021 8:30 AM BAKER BISCUIT Treatment 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 on file Not on file documented as of this encounter Plan of Treatment Not on file documented as of this encounter Visit Diagnoses Not on filedocumented in this encounter Care Teams Math Professor Relationship Specialty Start Date End Date Clara Stanley PA [address] [place] [address] PCP - General Nurse Practitioner 04/05/19 Jasper Canchola MD [address] [place] [address] Surgeon Thoracic Surgery 05/11/19 Alexis Lopez MD [address] [address] Station Examiner Pulmonary Disease 05/11/19 Kip Del Rio MD [address] [facility] [address] [place] [address] Medical Oncologist/Addresser Hematology and Oncology 05/11/19 Jacob Flynn MD [address] [facility] [address] LL [address] [place] [address] Radiation Oncologist Radiation Oncology 05/25/19 documented as of this encounter
--- OUTSIDE RECORDS SUMMARY | 2024-03-02 04:22 | XMS_ITS | Encounter Summary ---
Author Organization [facility] Address [address] [facility] [address] [place] [address] Phone Care Team Providers Care Assistant Broker Name Role Phone Clara Stanley Primary Care Provider + Jasper Canchola MD Unavailable Alexis Lopez MD Unavailable [phone] Kip Del Rio MD Unavailable Jacob Flynn MD Unavailable Reason for Referral * MRI/CAT/PET Scan (Routine) - Denied Specialty Diagnoses / Procedures Referred By Contac t Referred To Contact Radiology Diagnoses Neuroendocrine carcinoma (HCC) Procedures PET/CT Dotatate Skull to Thigh Stephanie Bautista NP [address] [facility] [address]07[address] [place] [address] Phone: tel: fax: [address] [phone] Referral ID Status Reason Start Date Expiration Date Visits Re quested Visits Authorized [id number] Denied 12/24/2020 01/23/2022 2 0 Encounter Details Date Type Department Care Team (Late st Contact Info) Description 12/24/2020 Orders Only [facility] Surgery 49[address] [facility] 8th [place] [address] [place] [address] Stephanie Bautista NP [address] [facility] [address] [place] [address] Neuroendocrine carcinoma (CMS/HCC) (HCC) (Primary Dx) Social [...] file Legal Sex Male 1:17 AM MANAGER LIGHTING Gender Identity Not on file Sexual Orientation [...] obtained. ??The study was interpreted on the [facility] workstation. ?? Scanned area: skull vertex to [...] obtained. The study was interpreted on the [facility] workstation. Scanned area: skull vertex to the [...] site documented in this encounter Care Teams Assistant Broker Relationship Specialty Start Date End Date Clara Stanley PA [address] [place] [address] PCP - General Nurse Practitioner 04/05/19 Jasper Canchola MD [address] [place] [address] Surgeon Thoracic Surgery 05/11/19 Alexis Lopez MD 46[address] [facility] [address] [address] Executive Assistant To General Counsel Pulmonary Disease 05/11/19 [place] [address] [place] [address] [place] [address] Medical Oncologist/Systems Lead Hematology and Oncology 05/11/19 Jacob Flynn MD [address] [facility] # [address] LL [address] [place] [address] Radiation Oncologist Radiation Oncology 05/25/19 documented as of this encounter
--- OUTSIDE RECORDS SUMMARY | 2024-03-02 04:22 | XMS_ITS | Encounter Summary ---
Author Organization [facility] Address [address] [facility] [address] [place] [address] Phone Care Team Providers Care Managed Care Liaison Name Role Phone Clara Stanley Primary Care Provider + Jasper Canchola MD Unavailable Alexis Lopez MD Unavailable Kip Del Rio MD Unavailable Jacob Flynn MD Unavailable Encounter Details Date Type Department Care Team (Late st Contact Info) Description 12/26/2020 Telephone [facility] Surgery 49[address] [facility] Advanced Medicine 8th [place] [address] [place] [address] Stephanie Bautista, SAGGER FILLER [address] [facility] [address]07[address] [place] [address] Social History Tobacco Use Types Packs/Day Years [...] file 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THROWING DEPARTMENT Gender Identity Not on file Sexual Orientation [...] preliminary showed malignancy, however, I wanted to stillaguamish back around and let him know the final had been signed off and confirmed malignancy. Advised patient would be presented at [facility] Tumor [facility]. He reports he is meeting with Oncology tomorrow. We are waiting on approval from insurance company with regard to his DOTATATE PET. Tour Escort completed using [employer] Direct speaking software, therefore, benzene washer operator variances may occur. documented in this encounter Plan of Treatment Not on file documented as of this encounter Visit Diagnoses Not on filedocumented in this encounter Care Teams Managed Care Liaison Relationship Specialty Start Date End Date Clara Stanley PA [address] [place] [address] PCP - General Nurse Practitioner 04/05/19 Jasper Canchola MD [address] [place] [address] Surgeon Thoracic Surgery 05/11/19 [place] [address] [place] [address] [address] Wire Hanger Pulmonary Disease 05/11/19 Kip Del Rio MD [address] [facility] [address] [place] [address] Medical Oncologist/General Expeditor Hematology and Oncology 05/11/19 Jacob Flynn MD 49[address] [facility] # [address] LL [address] [place], [place] [address] Radiation Oncologist Radiation Oncology 05/25/19 documented as of this encounter
--- OUTSIDE RECORDS SUMMARY | 2024-03-02 04:22 | XMS_ITS | Encounter Summary ---
Author Organization [facility] Address [address] [facility] [address] [place] [address] Care Team Providers Care College Counselor Name Role Phone Clara Stanley Primary Care Provider + Jasper Canchola MD Unavailable Alexis Lopez MD Unavailable [phone] Kip Del Rio MD Unavailable Jacob Flynn MD Unavailable Encounter Details Date Type Department Care Team (Late st Contact Info) Description 02/04/2021 Orders Only [facility] Pulmonology [address] [facility] [address] [place] [phone] Yolanda Segal RN LEONOR (obstructive sleep apnea) [...] on file Legal Sex Male 1:17 AM WRAP CHECKER Gender Identity Not on file Sexual Orientation Straight 09/22/2019 8: 21 PM CDT 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 on file Not on file documented as of this encounter Progress Notes * Yolanda Segal RN - 02/04/2021 10:33 AM CST Order for cpap supplies has been sent to [employer] documented in this encounter Plan of Treatment Not on file documented as of this encounter Visit Diagnoses Diagnosis LEONOR (obstructive sleep apnea)- Primary Obstructive sleep apnea (adult) (pediatric) documented in this encounter Care Teams College Counselor Relationship Specialty Start Date End Date Clara Stanley PA [address] [place] [address] PCP - General Nurse Practitioner 04/05/19 Jasper Canchola MD [address] [place] [address] Surgeon Thoracic Surgery 05/11/19 Alexis Lopez MD [address] [address] Travel Clerk Pulmonary Disease 05/11/19 Kip Del Rio MD [address] [facility] [address] [place] [address] Medical Oncologist/Nut Blanker Operator Hematology and Oncology 05/11/19 Jacob Flynn MD [address] [facility] # [address] LL [address] [place] [address] Radiation Oncologist Radiation Oncology 05/25/19 documented as of this encounter
--- OUTSIDE RECORDS SUMMARY | 2024-03-02 04:22 | XMS_ITS | Encounter Summary ---
Author Organization [facility] Healthcare Address [address] [place] [address] Care Team Providers Care Electromechanisms Design Drafter Name Role Phone Clara Stanley Primary Care Provider + Jasper Canchola MD Unavailable Alexis Lopez MD Unavailable [phone] Kip Del Rio MD Unavailable Jacob Flynn MD Unavailable Reason for Visit * Reason Comments IV prior to SIM Encounter Details Date Type Department Care Team (Late st Contact Info) Description 01/18/2021 10:15 AM CDT Clinical Support [facility] Advanced Medicine Radiation Oncology 49[address] [facility] [place] [address] Social History Tobacco Use Types Packs/Day Years [...] on file Legal Sex Male 1:17 AM PER DIEM NURSE Gender Identity Not on file Sexual [...] on filedocumented in this encounter Care Teams Electromechanisms Design Drafter Relationship Specialty Start Date End Date Clara Stanley PA [address] [place] [address] PCP - General Nurse Practitioner 04/05/19 Jasper Canchola MD [address] [place] [address] Surgeon Thoracic Surgery 05/11/19 Alexis Lopez MD [address] [address] Solar Sales Assessor Pulmonary Disease 05/11/19 Kip Del Rio MD [address] [facility] [address] [place] [address] Medical Oncologist/Hedge Fund Trader Hematology and Oncology 05/11/19 [place] [address] [place] [address] [address] [place] [address] Radiation Oncologist Radiation Oncology 05/25/19 documented as of this encounter
--- OUTSIDE RECORDS SUMMARY | 2024-03-02 04:22 | XMS_ITS | Encounter Summary ---
Author Organization [facility] Address [address] [facility] [address] [place] [address] Care Team Providers Care Shipping Clerk Name Role Phone Clara Stanley Primary Care Provider + Jasper Canchola MD Unavailable Alexis Lopez MD Unavailable [phone] Kip Del Rio MD Unavailable Jacob Flynn MD Unavailable [phone] Encounter Details Date Type Department Care Team (Late st Contact Info) Description 02/01/2021 10:[address]DER Office Visit [facility] Pulmonology [address] [facility] [address] [place] [phone] [place] [address] [place] [address] [address] [place] [address] Mild intermittent asthma without complication (Primary Dx); [...] file Legal Sex Male 1:[address] Gender Identity Not on file Sexual Orientation Straight 09/22/2019 8: 21 PM CDT 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 He is receiving this at [facility]. He is not been using his CPAP [...] I did recommend that he try an mtyf-skd-mobwpid proton pump inhibitor. LEONOR (obstructive sleep apnea) Assessment & Plan: The patient has an auto titrating CPAP unit with a range of 5-20 cm water pressure. He is going to restart CPAP therapy. I will send an order to [facility] for new supplies. Carcinoid tumor of right lung Comments: The patient did start on stereotactic radiation to the right paratracheal area 2 days ago. Rendering Provider & Department: Alexis Lopez MD BUILDER documented in this encounter Miscellaneous Notes * Assessment & Plan Note - Alexis Lopez MD - 02/01/2021 11:[address] BUILDER Associated Problem(s): LEONOR (obstructive sleep apnea) The patient has an auto titrating CPAP unit with a range of 5-20 cm water pressure. He is going to restart CPAP therapy. I will send an order to [facility] for new supplies. BUILDER * Assessment & Plan Note - Alexis Lopez MD - 02/01/2021 11:[address] BUILDER Associated Problem(s): Mild intermittent asthma without complication I did recommend that the patient try to use the Symbicort b.i.d. for period of time to see if this will resolve the coughing. Continues to use the albuterol on a p.r.n. basis. He continues on Flonaseand Zyrtec daily. He does have some reflux symptoms and I did recommend that he try an qtax-pqn-moeicbf proton pump inhibitor. BUILDER documented in this encounter Plan of Treatment Not on file documented as of this encounter Visit Diagnoses Diagnosis Mild intermittent asthma without complication- Primary LEONOR (obstructive sleep apnea) Obstructive sleep apnea (adult) (pediatric) Carcinoid tumor of right lung documented in this encounter Care Teams Shipping Clerk Relationship Specialty Start Date End Date Clara Stanley PA [address] [place] [address] PCP - General Nurse Practitioner 04/05/19 Jasper Canchola MD [address] [place] [address] Surgeon Thoracic Surgery 05/11/19 Alexis Lopez MD [address] [address] Utility Operator Pulmonary Disease 05/11/19 Kip Del Rio MD [address] [facility] [address] [place] [address] Medical Oncologist/Manager Life Hematology and Oncology 05/11/19 Jacob Flynn MD [address] [facility] [address] LL [address] [place] [address] Radiation Oncologist Radiation Oncology 05/25/19 documented as of this encounter
--- OUTSIDE RECORDS SUMMARY | 2024-03-02 04:22 | XMS_ITS | Encounter Summary ---
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 on file Not on file documented as of this encounter Plan of Treatment Not on file documented as of this encounter Procedures Procedure Name Priority Date/Time Associated Diagnosis Comments RAD ONC ARIA SESSION SUMMARY 02/04/2021 1:45 PM PRESCHOOL ASSISTANT PRINCIPAL documented in this encounter Results * RAD ONC ARIA SESSION SUMMARY (02/04/2021 1:45 PM PRESCHOOL ASSISTANT PRINCIPAL) Course Name [id number] ARIA Course Plan Date 01/18/2021 1:45 PM ARIA Elapsed Days 4 ARIA Treatment Start Date 01/31/2021 ARIA Treatment Site lung dpv ARIA Dose Given To Date (cGy) 1,600 ARIA Session Dosage Given (cGy) 400 ARIA Plan ID MEDIASTINUM ARIA Fractions Treated 4 ARIA Prescribed Dose Per Fraction (cGy) 400 ARIA Prescribed Total Dose (cGy) 6,000 ARIA 02/04/2021 1:45 PM PRESCHOOL ASSISTANT PRINCIPAL us Not In File Miscellaneous RADIATION ONCOLOGY ORD ERABLES Final Result ARIA documented in this encounter Visit Diagnoses Not on filedocumented in this encounter Care Teams Information Services Vice President Relationship Specialty Start Date End Date Clara Stanley PA [address] [place] [address] PCP - General Nurse Practitioner 04/05/19 Jasper Canchola MD [address] [place] [address] Surgeon Thoracic Surgery 05/11/19 Alexis Lopez MD 4600 [facility] [address] [address] Lip Cutter And Scorer Pulmonary Disease 05/11/19 Kip Del Rio MD 4921 [facility] [address] [place] [address] Medical Oncologist/Relay Checker Hematology and Oncology 05/11/19 Jacob Flynn MD 49[address] [facility] [address] [place] [address] Radiation Oncologist Radiation Oncology 05/25/19 documented as of this encounter
--- OUTSIDE RECORDS SUMMARY | 2024-03-02 04:22 | XMS_ITS | Encounter Summary ---
Author Organization [facility] Healthcare Address [address] [place] [address] Care Team Providers Care Food Concession Manager Name Role Phone Clara Stanley Primary Care Provider + Jasper Canchola MD Unavailable Alexis Lopez MD Unavailable [phone] Kip Del Rio MD Unavailable Jacob Flynn MD Unavailable Encounter Details Date Type Department Care Team (Late st Contact Info) Description 01/18/2021 11:00 AM CDT Treatment [facility] Radiation Oncology Community Health1 [facility] Advanced Medicine [place] [address] Jacob Flynn MD Community Health1 [facility] # LL LL [address] [place] [address] Social History Tobacco Use Types Packs/Day Years [...] on file Legal Sex Male 1:17 AM FERRYBOAT HELPER Gender Identity Not on file Sexual Orientation Straight 09/22/2019 8: 21 PM CDT 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 on file Not on file documented as of this encounter Plan of Treatment Not on file documented as of this encounter Visit Diagnoses Not on filedocumented in this encounter Care Teams Food Concession Manager Relationship Specialty Start Date End Date Clara Stanley PA [address] [place] [address] PCP - General Nurse Practitioner 04/05/19 Jasper Cnachola MD [address] [place] [address] Surgeon Thoracic Surgery 05/11/19 [place] [address] [place] [address] Barrel Drum Cutter Pulmonary Disease 05/11/19 Kip Del Rio MD [address] [facility] [facility] [address] [place] [address] Medical Oncologist/Stone Gluer Hematology and Oncology 05/11/19 Jacob Flynn MD [address] [facility] [address] LL [address] [place] [address] Radiation Oncologist Radiation Oncology 05/25/19 documented as of this encounter
--- OUTSIDE RECORDS SUMMARY | 2024-03-02 04:22 | XMS_ITS | Encounter Summary ---
Author Organization [facility] Address [address] [facility] [address] [place] [address] Care Team Providers Care Compensation Intern Name Role Phone Clara Stanley Primary Care Provider + Jasper Canchola MD Unavailable Alexis Lopez MD Unavailable [phone] Kip Del Rio MD Unavailable Jacob Flynn MD Unavailable Reason for Visit * Reason Comments Follow-up Encounter Details Date Type Department Care Team (Late st Contact Info) Description 10/05/2020 10:30 AM CDT Office Visit [facility] Pulmonology [address] [facility] [address] [place] [address] Alexis Lopez MD [address] [facility] [address] [place] [address] Mild intermittent asthma without complication (Primary Dx); [...] on file Legal 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 Del Rio and Sushant at [facility]. His most recent chest CT revealed a [...] Gatherings with Friends and Family: ??? Attends [employer] Services: ??? Active Member of Clubs or [...] Comments: The patient is being followed at [facility] with serial chest CTs by Drs. Del [...] (pediatric) documented in this encounter Care Teams Compensation Intern Relationship Specialty Start Date End Date Clara Stanley PA [address] [place] [address] PCP - General Nurse Practitioner 04/05/19 Jasper Canchola MD [address] [place] [address] Surgeon Thoracic Surgery 05/11/19 Alexis Lopez MD [address] [address] Accountant Tax Pulmonary Disease 05/11/19 Kip Del Rio MD [address] [facility] [address] [place] [address] Medical Oncologist/Deaf Teacher Hematology and Oncology 05/11/19 Jacob Flynn MD [address] [facility] [address] # LL LL [address] [place] [address] Radiation Oncologist Radiation Oncology 05/25/19 documented as of this encounter
--- OUTSIDE RECORDS SUMMARY | 2024-03-02 04:22 | XMS_ITS | Encounter Summary ---
Author Organization [facility] Healthcare Address [address] [place] [address] Care Team Providers Care Top Tile Decorator Name Role Phone Clara Stanley Primary Care Provider + Jasper Canchola MD Unavailable Alexis Lopez MD Unavailable Kip Del Rio MD Unavailable Jacob Flynn MD Unavailable [phone] Encounter Details Date Type Department Care Team (Late st Contact Info) Description 01/15/2021 Telephone [facility] Radiation Oncology [address] 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 [address] [place] [address] Medical Oncologist/Acid Correction Hand Hematology and Oncology 05/11/19 Jacob Flynn MD [address] [facility] [address] # LL LL [address] [place] [address] Radiation Oncologist Radiation Oncology 05/25/19 documented as of this encounter
--- OUTSIDE RECORDS SUMMARY | 2024-03-02 04:22 | XMS_ITS | Encounter Summary ---
Author Organization [facility] Address [address] [place] [address] Phone Care Team Providers Care Lining Stamper Name Role Phone Clara Stanley Primary Care Provider + Jasper Canchola MD Unavailable Alexis Lopez MD Unavailable Kip Del Rio MD Unavailable Jacob Flynn MD Unavailable Encounter Details Date Type Department Care Team (Late st Contact Info) Description 12/24/[address] 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 Cheri NUTRITION CONSULTANT stated that we should wait to see pt until after bx results and PET scan results come back. If this plan changes we will notify pt. documented in this encounter Plan of Treatment Not on file documented as of this encounter Visit Diagnoses Not on filedocumented in this encounter Care Teams Lining Stamper Relationship Specialty Start Date End Date Clara Stanley PA [address] [place] [address] PCP - General Nurse Practitioner 04/05/19 Jasper Canchola MD [address] [place] [address] Surgeon Thoracic Surgery 05/11/19 Alexis Lopez MD [address] [address] Associate Dean Of Women Pulmonary Disease 05/11/19 Kip Del Rio MD [address] [facility] [address] [place] [address] Medical Oncologist/Tennis Professional Hematology and Oncology 05/11/19 Jacob Flynn MD [address] [facility] # LL LL [address] [place] [address] Radiation Oncologist Radiation Oncology 05/25/19 documented as of this encounter
--- OUTSIDE RECORDS SUMMARY | 2024-03-02 04:22 | XMS_ITS | Encounter Summary ---
Author Organization [facility] Healthcare Address [address] [place] [address] Care Team Providers Care Portfolio Director Name Role Phone Clara Stanley Primary Care Provider + Jasper Canchola MD Unavailable Alexis Lopez MD Unavailable Kip Del Rio MD Unavailable Jacob Flynn MD Unavailable Encounter Details Date Type Department Care Team (Late st Contact Info) Description 01/31/2021 8:10 AM CHANGE MANAGER Treatment [facility] Radiation Oncology [address] 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 on file Not on file documented as of this encounter Plan of Treatment Not on file documented as of this encounter Visit Diagnoses Not on filedocumented in this encounter Care Teams Portfolio Director Relationship Specialty Start Date End Date Clara Stanley PA [address] [place] [address] PCP - General Nurse Practitioner 04/05/19 Jasper Canchola MD [address] [place] [address] Surgeon Thoracic Surgery 05/11/19 Alexis Lopez MD [address] [address] Car Rental Agency Manager Pulmonary Disease 05/11/19 Kip Del Rio MD [address] [facility] [address] [place] [address] Medical Oncologist/Fit Model Hematology and Oncology 05/11/19 Jacob Flynn MD [address] [facility] [address] # [address] LL [address] [place] [address] Radiation Oncologist Radiation Oncology 05/25/19 documented as of this encounter
--- OUTSIDE RECORDS SUMMARY | 2024-03-02 04:22 | XMS_ITS | Encounter Summary ---
Author Organization [facility] Healthcare Address [address] [place] [address] Care Team Providers Care Spice Blender Name Role Phone Clara Stanley Primary Care Provider + Jasper Canchola MD Unavailable Alexis Lopez MD Unavailable Kip Del Rio MD Unavailable Jacob Flynn MD Unavailable [phone] Encounter Details Date Type Department Care Team (Late st Contact Info) Description 02/05/2021 1:30 [address] Treatment 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 on file Not on file documented as of this encounter Plan of Treatment Not on file documented as of this encounter Visit Diagnoses Not on filedocumented in this encounter Care Teams Spice Blender Relationship Specialty Start Date End Date Clara Stanley PA [address] [place] [address] PCP - General Nurse Practitioner 04/05/19 Jasper Canchola MD [address] [place] [address] Surgeon Thoracic Surgery 05/11/19 Alexis Lopez MD [address] [address] Asp Net C Developer Pulmonary Disease 05/11/19 Kip Del Rio MD [address] [facility] [address] [place] [address] Medical Oncologist/Informatics Scientist Hematology and Oncology 05/11/19 Jacob Flynn MD [address] [facility] [address] LL [address] [place] [address] Radiation Oncologist Radiation Oncology 05/25/19 documented as of this encounter
--- OUTSIDE RECORDS SUMMARY | 2024-03-02 04:22 | XMS_ITS | Encounter Summary ---
Author Organization [facility] Address [address] [place] [address] Care Team Providers Care Cylindrical Mixer Name Role Phone Clara Stanley Primary Care Provider + Jasper Canchola MD Unavailable Alexis Lopez MD Unavailable [phone] Kip Del Rio MD Unavailable Jacob Flynn MD Unavailable Reason for Referral * Pulmonology (Routine) - Closed Specialty Diagnoses / Procedures Referred By Contrebekah t Referred To Contact Pulmonology Diagnoses LAD (lymphadenopathy) Procedures Bronchoscopy -[facility] Interventional Pulm; Bronchoscopy, EBUS LINEAR Noah Dominguez Chi, MD [address] [facility] [address] [place] [address] Phone: tel: fax: [facility] Pulmonary [address] [address] Phone: tel: fax: Referral ID Status Reason Start Date Expiration Date Visits Re quested Visits Authorized [id number] Closed 12/14/2020 01/13/2022 1 1 Reason for Visit * Reason Comments Bronchoscopy * Pulmonology (Routine) - Closed Specialty Diagnoses / Procedures Referred By Contac t Referred To Contact Pulmonology Diagnoses LAD (lymphadenopathy) Procedures Bronchoscopy -[facility] Interventional Pulm; Bronchoscopy, EBUS LINEAR Noah Dominguez Chi, MD [address] [place] [address] Phone: tel: fax: [facility] Pulmonary [address] [facility] [address] [place] [address] Phone: tel: fax: Referral ID Status Reason Start Date Expiration Date Visits Re quested Visits Authorized [id number] Closed 12/14/2020 01/13/2022 1 1 Encounter Details Date Type Department Care Team (Latest Contact Info) Description 12/24/2020 7:20 AM CDT - 12/24/2020 9:17 AM CDT Hospital Encounter [facility] Interventional Pulmonology [address] [place] [address] Noah Dominguez Chi, MD [address] [place] [address] LAD (lymphadenopathy) Discharge Disposition: Discharge [...] file Legal Sex Male 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 Please call the [facility] Interventional Pulmonology Department at , Thursday [...] days. If this is an emergency, call [phone]. If you are unable to speak to the staff during normal business hours, please call and ask for the Shop Fitter content architect. I have received and understand these instructions [...] such as a assisted living or [facility] or detention? No 4. Are you currently waiting on the results of a COVID test? No Pre-procedure instructions: 1. The patient stated that they unsure if they received their pre-procedure instructions in the mail, email, or MyChart. 2. Instructed the patient to arrive at [facility] Admitting/Registration Office on [facility] at 0730 on 12/24/20 3. If the patient uses home oxygen, even if they only use oxygen during sleep periods, they are to bring enough home oxygen supply to get themselves to and from [facility]. 4. Patient stated that they do not use a CPAP or BIPAP device. Instructed patient, if they use a CPAP or BIPAP, to bring in their device or bring documentation of their CPAP/BIPAP settings with them to their appointment. 5. The patient will need a concrete truck driver or will need to arrange their [...] are familiar on the location of the [facility] Admitting Office for pre-procedure registration and any lab work that may be ordered. Discussed that the patient is not to go to the [facility] for their appointment. Confirmed they are aware of what time to arrive at the [facility] Admitting Office. 11. I reviewed the following [facility] Visitor Policy: A. Each patient is only [...] wear a face covering upon entrance to [facility]. If you or your visitors do not [...] - 12/24/2020 8:57 AM CDTAssociated Order(s): BRONCHOSCOPY [facility] Interventional Pulmonary Patient Name: Mp Bullock Procedure [...] sedation Informed Consent: Benefits, risks, alternatives discussed; patient/direct customer service representative accepts/agrees tosedation/anesthesia plan and to the [...] silhouette is within normal limits. Dictated by: Arpna Howard MD PHD The radiology attending physician [...] XR PROCEDURES Final Resul t * Bronchoscopy -[facility] Interventional Pulm; Bronchoscopy, EBUS LINEAR (12/24/2020 8:57 AM CDT) Anatomical Region Laterality Modality Other Narrative Procedure Note Noah Dominguez Chi, MD - 12/24/2020 8:57 AM CDT [facility] Interventional Pulmonary Patient Name: Mp Bullock Procedure [...] CDT 12/24/2020 9:18 AM CDT Narrative PATHOLOGY [facility] - 12/25/2020 11:22 AM CDT EPIC results best viewed via link to PDF [facility] [place] [address] Note to Patients: This report may contain [...] Gender: ??M : ??1965 (Age: 55) Address: ??[address] [place] [address] Hospital #: ??[id number] Taken:12/24/2020 Received:12/24/2020 Reported: 12/25/2020 Patient Type: [facility] ?? Service: Pulmonary Location: [facility] Physician(s): ??Noah Dominguez M.D. FINAL DIAGNOSIS A. [...] Surgical Pathology and Flow Cytometry Departments at [facility] as part of an ongoing research associate quality control qc program and in compliance with federally mandated [...] Surgical Pathology and Flow Cytometry Departments of [facility]. ??It has not been cleared or approved by the U. S. Food and Drug Administration. Noah Dominguez MD LAB CYTOLOGY ORDERABLES Fi nal Result PATHOLOGY [facility] 3rd Floor [place], [place] [phone] documented in this encounter Visit Diagnoses Diagnosis [...] mL/hr documented in this encounter Care Teams Cylindrical Mixer Relationship Specialty Start Date End Date Clara Stanley PA [address] [place] [address] PCP - General Nurse Practitioner 04/05/19 Jasper Canchola MD [address] [place] [address] Surgeon Thoracic Surgery 05/11/19 Alexis Lopez MD [address] [facility] [address] [address] Senior Quality Methods Specialist Pulmonary Disease 05/11/19 Kip Del Rio MD [address] [facility] [address] [place] [address] Medical Oncologist/Gumming Machine Operator Hematology and Oncology 05/11/19 Jacob Flynn MD [address] [facility] [address] LL [address] [place] [address] Radiation Oncologist Radiation Oncology 05/25/19 documented as of this encounter
--- OUTSIDE RECORDS SUMMARY | 2024-03-02 04:22 | XMS_ITS | Encounter Summary ---
Author Organization [facility] Healthcare Address [address] [place] [address] Care Team Providers Care Commercial Designer Name Role Phone Clara Stanley Primary Care Provider + Jasper Canchola MD Unavailable Alexis Lopez MD Unavailable [phone] Kip Del Rio MD Unavailable Jacob Flynn MD Unavailable [phone] Encounter Details Date Type Department Care Team (Late st Contact Info) Description 02/03/2021 8:30 AM DIRECTOR OF CHILD WELFARE SERVICES Treatment [facility] Radiation Oncology [address] [facility] [place] [address] Social History Tobacco Use Types Packs/Day Years [...] Legal Sex Male 1:17 AM DIRECTOR OF CHILD WELFARE SERVICES Gender Identity Not on file Sexual Orientation Straight 09/22/2019 8: 21 PM CDT 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 on file Not on file documented as of this encounter Plan of Treatment Not on file documented as of this encounter Visit Diagnoses Not on filedocumented in this encounter Care Teams Commercial Designer Relationship Specialty Start Date End Date Clara Stanley PA [address] [place] [address] PCP - General Nurse Practitioner 04/05/19 Jasper Canchola MD [address] [place] [address] Surgeon Thoracic Surgery 05/11/19 Alexis Lopez MD [address] [address] Meter Maintenance Person Pulmonary Disease 05/11/19 Kip Del Rio MD [address] [place] [address] Medical Oncologist/Career Development Specialist Hematology and Oncology 05/11/19 Jacob Flynn MD [address] [place] [address] Radiation Oncologist Radiation Oncology 05/25/19 documented as of this encounter
--- OUTSIDE RECORDS SUMMARY | 2024-03-02 04:22 | XMS_ITS | Encounter Summary ---
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 on file Not on file documented as of this encounter Plan of Treatment Not on file documented as of this encounter Procedures Procedure Name Priority Date/Time Associated Diagnosis Comments RAD ONC ARIA SESSION SUMMARY 02/01/2021 8:46 AM THERAPEUTIC RADIOLOGIST documented in this encounter Results * RAD ONC ARIA SESSION SUMMARY (02/01/2021 8:46 AM THERAPEUTIC RADIOLOGIST) Course Name [id number] ARIA Course Plan Date 01/18/2021 1:45 PM ARIA Elapsed Days 1 ARIA Treatment Start Date 01/31/2021 ARIA Treatment Site lung dpv ARIA Dose Given To Date (cGy) 800 ARIA Session Dosage Given (cGy) 400 ARIA Plan ID MEDIASTINUM ARIA Fractions Treated 2 ARIA Prescribed Dose Per Fraction (cGy) 400 ARIA Prescribed Total Dose (cGy) 6,000 ARIA 02/01/2021 8:46 AM THERAPEUTIC RADIOLOGIST us Not In File Miscellaneous RADIATION ONCOLOGY ORD ERABLES Final Result ARIA documented in this encounter Visit Diagnoses Not on filedocumented in this encounter Care Teams Men'S Locker Room Attendant Relationship Specialty Start Date End Date Clara Stanley PA [address] [place] [address] PCP - General Nurse Practitioner 04/05/19 Jasper Canchola MD [address] [place] [address] Surgeon Thoracic Surgery 05/11/19 Alexis Lopez MD [address] [facility] [address] [place] [address] [place] [address] Energy Efficiency Specialist Pulmonary Disease 05/11/19 Kip Del Rio MD [address] [facility] [address] [place] [address] Medical Oncologist/Lens Grinder Apprentice Hematology and Oncology 05/11/19 Jacob Flynn MD [address] [facility] [address] LL [address] [place] [address] Radiation Oncologist Radiation Oncology 05/25/19 documented as of this encounter
--- OUTSIDE RECORDS SUMMARY | 2024-03-02 04:22 | XMS_ITS | Encounter Summary ---
Author Organization [facility] Address [address] [place] [address] Phone Care Team Providers Care Grain Elevator Worker Name Role Phone Clara Stanley Primary Care Provider + Jasper Canchola MD Unavailable Alexis Lopez MD Unavailable [phone] Kip Del Rio MD Unavailable Jacob Flynn MD Unavailable Reason for Referral * Pulmonology (Routine) - Closed Specialty Diagnoses / Procedures Referred By Contac t Referred To Contact Pulmonology Diagnoses LAD (lymphadenopathy) Procedures Bronchoscopy -[facility] Interventional Pulm; Bronchoscopy, EBUS LINEAR Noah Dominguez Chi, MD [address] [place] [address] Phone: tel: fax: [facility] Pulmonary [address] [facility] [address] [place] [address] Phone: tel: fax: Referral ID Status Reason Start Date Expiration Date Visits Re quested Visits Authorized [id number] Closed 12/14/2020 01/13/2022 1 1 Encounter Details Date Type Department Care Team (Late st Contact Info) Description 12/14/2020 Orders Only [facility] Pulmonary [address] [facility] 8th [place] [address] [place] [address] Ezekiel Alvarado RMA LAD (lymphadenopathy) (Primary Dx) Social History Tobacco Use Types Packs/Day Years Used Date Smoking Tobacco: Never Smokeless Tobacco: Never Alcohol Use Standard Drinks/Week Comments Yes 2 (1 standard drink = 0.6 oz pur e alcohol) Sex and Gender Information Value Date Recorded Sex Assigned at Not on file Legal Sex Male 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 INSPECTOR AND TESTER Gender Identity Not on file Sexual Orientation Straight 09/22/2019 8: 21 PM CDT documented as of this encounter Plan of Treatment Not on file documented as of this encounter Results * Bronchoscopy -[facility] Interventional Pulm; Bronchoscopy, EBUS LINEAR (12/24/2020 8:57 AM CDT) Anatomical Region Laterality Modality Other Narrative Procedure Note Noah Dominguez Chi, MD - 12/24/2020 8:57 AM CDT [facility] Interventional Pulmonary Patient Name: Kwaku Kulkarni Procedure [...] (lymphadenopathy) documented in this encounter Care Teams Grain Elevator Worker Relationship Specialty Start Date End Date Clara Stanley PA [address] [place] [address] PCP - General Nurse Practitioner 04/05/19 Jasper Canchola MD [address] [place] [address] Surgeon Thoracic Surgery 05/11/19 Alexis Lopez MD [address] [facility] [address] [address] Stage Driver Pulmonary Disease 05/11/19 Kip Del Rio MD [address] [facility] [address] [place] [address] Medical Oncologist/Artist Relationship Manager Hematology and Oncology 05/11/19 Jacob Flynn MD [address] [facility] [address] LL [address] [place] [address] Radiation Oncologist Radiation Oncology 05/25/19 documented as of this encounter
--- OUTSIDE RECORDS SUMMARY | 2024-03-02 04:22 | XMS_ITS | Encounter Summary ---
Author Organization [facility] Healthcare Address [address] [place] [address] Care Team Providers Care Clip Bolter And Wrapper Name Role Phone Clara Stanley Primary Care Provider + Jasper Canchola MD Unavailable Alexis Lopez MD Unavailable Kip Del Rio MD Unavailable Jacob Flynn MD Unavailable Encounter Details Date Type Department Care Team (Late st Contact Info) Description 01/25/2021 Telephone [facility] Advanced Medicine Radiation Oncology [address] [facility] Advanced Medicine [facility] [place] [address] Jacob Flynn MD [address] [facility] [address] LL [address] [place] [address] Social History Tobacco Use Types Packs/Day Years [...] on file Legal Sex Male 1: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 Left message for patient regarding potential start delay for 01/29. Left callback information. KFURTER INSPECTOR documented in this encounter Plan of Treatment Not on file documented as of this encounter Visit Diagnoses Not on filedocumented in this encounter Care Teams Clip Bolter And Wrapper Relationship Specialty Start Date End Date Clara Stanley PA [address] [place] [address] PCP - General Nurse Practitioner 04/05/19 Jasper Canchola MD [address] [place] [address] Surgeon Thoracic Surgery 05/11/19 Alexis Lopez MD [address] [address] Linen Keeper Pulmonary Disease 05/11/19 Kip Del Rio MD [address] [place] [address] Medical Oncologist/Blueprinting And Photocopy Supervisor Hematology and Oncology 05/11/19 Jacob Flynn MD [address] [place] [address] Radiation Oncologist Radiation Oncology 05/25/19 documented as of this encounter
--- OUTSIDE RECORDS SUMMARY | 2024-03-02 04:22 | XMS_ITS | Encounter Summary ---
Author Organization [facility] Healthcare Address [address] [place] [address] Care Team Providers Care Pie Chef Name Role Phone Clara Stanley Primary Care Provider + Jasper Canchola MD Unavailable Alexis Lopez MD Unavailable [phone] Kip Del Rio MD Unavailable Jcaob Flynn MD Unavailable Encounter Details Date Type Department Care Team (Late st Contact Info) Description 02/04/2021 1:30 PM HOSPICE ADMITTING CLERK Treatment [facility] Radiation Oncology [address] [facility] [place] [address] Social History Tobacco Use Types Packs/Day Years [...] on file Legal Sex Male 1:17 AM HOSPICE ADMITTING CLERK Gender Identity Not on file Sexual Orientation Straight 09/22/2019 8: 21 PM CDT 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 on file Not on file documented as of this encounter Plan of Treatment Not on file documented as of this encounter Visit Diagnoses Not on filedocumented in this encounter Care Teams Pie Chef Relationship Specialty Start Date End Date Clara Stanley PA [address] [place] [address] PCP - General Nurse Practitioner 04/05/19 Jasper Canchola MD [address] [place] [address] Surgeon Thoracic Surgery 05/11/19 Alexis Lopez MD [address] [address] Quality Liaison Pulmonary Disease 05/11/19 Kip Del Rio MD [address] [facility] [address] [place] [address] Medical Oncologist/Ordnance Keeper Hematology and Oncology 05/11/19 Jacob Flynn MD [address] [facility] [address] [place] [address] Radiation Oncologist Radiation Oncology 05/25/19 documented as of this encounter
--- OUTSIDE RECORDS SUMMARY | 2024-03-02 04:22 | XMS_ITS | Encounter Summary ---
Author Organization [facility] Address [address] [place] [address] Care Team Providers Care Electron Beam Photo Mask Maker Name Role Phone Clara Stanley Primary Care Provider + Jasper Canchola MD Unavailable Alexis Lopez MD Unavailable Kip Del Rio MD Unavailable [phone] Jacob Flynn MD Unavailable Reason for Referral * MRI/CAT/PET Scan (Routine) - Denied Specialty Diagnoses / Procedures Referred By Contac rudolph Referred To Contact Radiology Diagnoses Neuroendocrine carcinoma (HCC) Procedures PET/CT Dotatate Skull to Thigh Stephanie Bautista NP [address] [facility] [address] [place] [address] Phone: tel: fax: [address] [address] Referral ID Status Reason Start Date Expiration Date Visits Re quested Visits Authorized [id number] Denied 12/24/2020 01/23/2022 2 0 Reason for Visit * MRI/CAT/PET Scan (Routine) - Denied Specialty Diagnoses / Procedures Referred By Contac t Referred To Contact Radiology Diagnoses Neuroendocrine carcinoma (HCC) Procedures PET/CT Dotatate Skull to Thigh Stephanie Bautista NP [address] [facility] [address] [place] [address] Phone: tel: fax: [facility] [place] [address] Referral ID Status Reason Start Date Expiration Date Visits Re quested Visits Authorized [id number] Denied 12/24/2020 01/23/2022 2 0 Encounter Details Date Type Department Care Team (Latest Contact Info) Description 01/08/2021 7:17 AM CDT - 01/08/2021 11:59 PM CDT Hospital Encounter [facility] [address] [place] [address] Stephanie Bautista NP [address] [facility] [address] [place] [address] Neuroendocrine carcinoma (CMS/HCC) (HCC) Discharge Disposition: Discharge [...] file Legal Sex Male 1:17 AM GLOBAL PROGRAM DIRECTOR Gender Identity Not on file Sexual [...] obtained. ??The study was interpreted on the Liveyearbook workstation. ?? Scanned area: skull vertex to [...] obtained. The study was interpreted on the Liveyearbook workstation. Scanned area: skull vertex to the [...] 01/08/2021 documented in this encounter Care Teams Electron Beam Photo Mask Maker Relationship Specialty Start Date End Date Clara Stanley PA [address] [place] [address] PCP - General Nurse Practitioner 04/05/19 Jasper Canchola MD [address] [place] [address] Surgeon Thoracic Surgery 05/11/19 Alexis Lopez MD [address] [address] Hardware Supplies Sales Representative Pulmonary Disease 05/11/19 Kip Del Rio MD [address] [facility] [address] [place], [place] [address] Medical Oncologist/Agency Sales Management Assistant Hematology and Oncology 05/11/19 Jacob Flynn MD [address] [facility] [address] LL [address] [place] [address] Radiation Oncologist Radiation Oncology 05/25/19 documented as of this encounter
--- OUTSIDE RECORDS SUMMARY | 2024-03-02 04:22 | XMS_ITS | Encounter Summary ---
Author Organization [facility] Address [address] [facility] [address] [place] [address] Phone Care Team Providers Care Flux Plant Operator Name Role Phone Lizeth Clara ACUNA Primary Care Provider + Jasper Canchola MD Unavailable Alexis Lopez MD Unavailable Kip Del Rio MD Unavailable Jacob Flynn MD Unavailable Encounter Details Date Type Department Care Team (Latest Contact Info) Description 12/14/2020 8:45 AM CDT Office Visit [facility] Surgery [address] [facility] Advanced Medicine 8th [place] [address] [place] [address] Jasper Canchola MD [address] [facility] [address]07-[address] [place] [address] High grade neuroendocrine carcinoma (CMS/HCC) (HCC) (Primary [...] on file Legal Sex Male 1:17 AM FOREIGN AGENT Gender Identity Not on file Sexual [...] Canchola MD - 12/14/2020 8:45 AM CDT [facility] Thoracic Surgery Note 12/14/2020 KALPANA Lema 1965 [...] very much. Yours sincerely, Sary Canchola MD Base Loader completed by using CitySourced Direct speaking software, therefore, transcriptionvariances may occur. IGN AGENT documented in this encounter Plan of Treatment Not on file documented as of this encounter Visit Diagnoses Diagnosis High grade neuroendocrine carcinoma (HCC)- Primary documented in this encounter Care Teams Flux Plant Operator Relationship Specialty Start Date End Date Clara Stanley PA [address] [place] [address] PCP - General Nurse Practitioner 04/05/19 Jasper Canchola MD [address] [place] [address] Surgeon Thoracic Surgery 05/11/19 Alexis Lopez MD [address] [address] Supervisor Maintenance Pulmonary Disease 05/11/19 Kip Del Rio MD [address] [facility] [address] [place], [place] [id number] Medical Oncologist/Branch Lead Hematology and Oncology 05/11/19 Jacob Flynn MD [address] [facility] [address] LL LL [address] [place], [place] [address] Radiation Oncologist Radiation Oncology 05/25/19 documented as of this encounter
--- OUTSIDE RECORDS SUMMARY | 2024-03-02 04:22 | XMS_ITS | Encounter Summary ---
Author Organization [facility] Address [address] [place] [address] Care Team Providers Care Aircraft Delivery Checker Name Role Phone Clara Stanley Primary Care Provider + Jasper Canchola MD Unavailable Alexis Lopez MD Unavailable [phone] Kip Del Rio MD Unavailable Jacob Flynn [...] on file Legal Sex Male 1:17 AM BRAND SALES CONSULTANT Gender Identity Not on file Sexual [...] ONC ARIA SESSION SUMMARY 01/31/2021 8:47 AM BRAND SALES CONSULTANT documented in this encounter Results * RAD ONC ARIA SESSION SUMMARY (01/31/2021 8:47 AM BRAND SALES CONSULTANT) Course Name [id number] ARIA Course Plan Date 01/18/2021 1:45 PM ARIA Elapsed Days 0 ARIA Treatment Start Date 01/31/2021 ARIA Treatment Site lung dpv ARIA Dose Given To Date (cGy) 400 ARIA Session Dosage Given (cGy) 400 ARIA Plan ID MEDIASTINUM ARIA Fractions Treated 1 ARIA Prescribed Dose Per Fraction (cGy) 400 ARIA Prescribed Total Dose (cGy) 6,000 ARIA 01/31/2021 8:47 AM BRAND SALES CONSULTANT us Not In File Miscellaneous RADIATION ONCOLOGY ORD ERABLES Final Result ARIA documented in this encounter Visit Diagnoses Not on filedocumented in this encounter Care Teams Aircraft Delivery Checker Relationship Specialty Start Date End Date Clara Stanley PA [address] [place] [address] PCP - General Nurse Practitioner 04/05/19 Jasper Canchola MD [address] [place] [address] Surgeon Thoracic Surgery 05/11/19 Alexis Lopez MD [address] [facility] [address] [place] [address] [place] [address] Public Health Physician Pulmonary Disease 05/11/19 Kip Del Rio MD [address] [facility] [address] [place] [address] Medical Oncologist/Shipping Inspector Hematology and Oncology 05/11/19 Jacob Flynn MD [address] [facility] [address] LL [address] [place] [address] Radiation Oncologist Radiation Oncology 05/25/19 documented as of this encounter
--- OUTSIDE RECORDS SUMMARY | 2024-03-02 04:22 | XMS_ITS | Encounter Summary ---
Author Organization [facility] Address [address] [place] [address] Phone Care Team Providers Care Alarm Installer Name Role Phone Clara Stanley Primary Care Provider + Jasper Canchola MD Unavailable Alexis Lopez MD Unavailable Kip Del Rio MD Unavailable Jacob Flynn MD Unavailable Encounter Details Date Type Department Care Team (Late st Contact Info) Description 01/09/2021 Documentation [facility] Oncology [address] [facility] Advanced Medicine 7th [place] [address] [place] [address] Kip Del Rio MD [facility] [address] [place] [address] Social History Tobacco Use Types Packs/Day Years [...] file Legal Sex Male 1:17 AM NET TECHNICAL ARCHITECT Gender Identity Not on file Sexual [...] on filedocumented in this encounter Care Teams Alarm Installer Relationship Specialty Start Date End Date Clara Stanley PA [facility] [place] [address] PCP - General Nurse Practitioner 04/05/19 Jasper Canchola MD [facility] [place] [address] Surgeon Thoracic Surgery 05/11/19 Alexis Lopez MD [address] [facility] [address] [address] Associate Director Of Development Pulmonary Disease 05/11/19 Kip Del Rio MD [address] [facility] [address] [place] [address] Medical Oncologist/Tooth Cutter Clutch Hematology and Oncology 05/11/19 Jacob Flynn MD [address] [facility] [address] [place] [address] Radiation Oncologist Radiation Oncology 05/25/19 documented as of this encounter
--- OUTSIDE RECORDS SUMMARY | 2024-03-02 04:22 | XMS_ITS | Encounter Summary ---
Author Organization [facility] Address [address] [facility] [address] [place] [address] Phone Care Team Providers Care Spray Rig Operator Name Role Phone Clara Stanley Primary Care Provider + Jasper Canchola MD Unavailable Alexis Lopez MD Unavailable [phone] Kip Del Rio MD Unavailable Jacob Flynn MD Unavailable Reason for Visit * Reason Onset Date Comments DOTATATE PET APPEAL 01/01/2021 Encounter Details Date Type Department Care Team (Late st Contact Info) Description 01/01/2021 Documentation [facility] 49[address] [facility] Advanced Medicine 8th [place] [address] [place] [address] Stephanie Bautista, SALES CONTRACTS ANALYST [address] [facility] [address] [place] [address] DOTATATE PET APPEAL Social History Tobacco Use [...] file Legal Sex Male 1:17 AM MANAGER ONLINE Gender Identity Not on file Sexual Orientation [...] ANP- Nurse Practitioner for Dr. Christian Canchola Reimbursement Consultant completed using Platypus TV*StreamStar Direct speaking software, therefore, garbage person variances may occur. documented in this encounter Plan of Treatment Not on file documented as of this encounter Visit Diagnoses Not on filedocumented in this encounter Care Teams Spray Rig Operator Relationship Specialty Start Date End Date Clara Stanley PA [address] [place] [address] PCP - General Nurse Practitioner 04/05/19 Jasper Canchola MD [address] [place] [address] Surgeon Thoracic Surgery 05/11/19 Alexis Lopez MD [address] [address] Stuntman Pulmonary Disease 05/11/19 Kip Del Rio MD [address] [facility] [address] [place] [address] Medical Oncologist/Slag Motor Operator Hematology and Oncology 05/11/19 Jacob Flynn MD [address] [facility] [address] [place] [address] Radiation Oncologist Radiation Oncology 05/25/19 documented as of this encounter
--- OUTSIDE RECORDS SUMMARY | 2024-03-02 04:22 | XMS_ITS | Encounter Summary ---
Author Organization [facility] Address [address] [place] [address] Phone Care Team Providers Care Shopping Centre Manager Name Role Phone Clara Stanley Primary Care Provider + Jasper Canchola MD Unavailable Alexis Lopez MD Unavailable Kip Del Rio MD Unavailable Jacob Flynn MD Unavailable Encounter Details Date Type Department Care Team (Late st Contact Info) Description 12/25/2020 Telephone [facility] Oncology [address] [facility] Advanced Medicine 7th [place] [address] [place] [address] Kip Del Rio MD [facility] [address] [place] [address] Social History Tobacco Use Types Packs/Day Years [...] file Legal Sex Male 1:17 AM MILK INSPECTOR Gender Identity Not on file Sexual [...] on filedocumented in this encounter Care Teams Shopping Centre Manager Relationship Specialty Start Date End Date Clara Stanley PA [address] [place] [address] PCP - General Nurse Practitioner 04/05/19 Jasper Canchola MD [address] [place] [address] Surgeon Thoracic Surgery 05/11/19 Alexis Lopez MD [address] [address] Home School Teacher Pulmonary Disease 05/11/19 Kip Del Rio MD [address] [place] [address] Medical Oncologist/Mix Mill Tender Hematology and Oncology 05/11/19 Jacob Flynn MD [address] [place] [address] Radiation Oncologist Radiation Oncology 05/25/19 documented as of this encounter
--- OUTSIDE RECORDS SUMMARY | 2024-03-02 04:22 | XMS_ITS | Encounter Summary ---
Author Organization [facility] Address [address] [facility] [address] [place] [address] Phone Care Team Providers Care Cake Inspector Name Role Phone Clara Stanley Primary Care Provider + Jasper Canchola MD Unavailable [phone] Alexis Lopez MD Unavailable [phone] Kip Del Rio MD Unavailable [phone] Jacob Flynn MD Unavailable Reason for Visit * Consultation (Routine) - Closed Specialty Diagnoses / Procedures Referred By Erik [email or web address] Referred To Contact Cardiothoracic Surgery Diagnoses Lung nodule Clara Stanley PA [address] [place] [address] Phone: tel: fax: Jasper Canchola MD [address] [facility] [address] [place] [address] Phone: tel: fax: Referral ID Status Reason Start Date Expiration Date V isits Requested Visits Authorized [id number] Closed Specialty Services Required 03/12/2020 04/11/2021 99 99 Encounter Details Date Type Department Care Team (Latest Contact Info) Description 09/19/2020 3:00 PM CDT Office Visit [facility] Surgery [facility] 8th [place] [address] [place] [address] Jasper Canchola MD [address] [facility] [address] [place] [address] High grade neuroendocrine carcinoma (CMS/HCC) (Primary Dx) Social History Tobacco Use Types Packs/Day Years Used Date Smoking Tobacco: Never Smokeless Tobacco: Never Alcohol Use Standard Drinks/Week Comments Yes 2 (1 standard drink = 0.6 oz pur e alcohol) Sex and Gender Information Value Date Recorded Sex Assigned at Not on file Legal Sex Male 1:17 AM PARKING LOT SPOTTER Gender Identity Not on file Sexual Orientation [...] Canchola MD - 09/19/2020 3:00 PM CDT [facility] Thoracic Surgery Note 09/24/2020 KALPANA Lema 1965 [...] very much. Yours sincerely, Sary Canchola MD Lumber Checker completed by using PagPop Direct speaking software, therefore, transcriptionvariances may occur. documented in this encounter Plan of Treatment Not on file documented as of this encounter Visit Diagnoses Diagnosis High grade neuroendocrine carcinoma (HCC)- Primary documented in this encounter Care Teams Cake Inspector Relationship Specialty Start Date End Date Clara Stanley PA [address] [place] [address] PCP - General Nurse Practitioner 04/05/19 Jasper Canchola MD [address] [place] [address] Surgeon Thoracic Surgery 05/11/19 Alexis Lopez MD [address] [address] Health Services Director Pulmonary Disease 05/11/19 Kip Del Rio MD [address] [facility] [address] [place] [address] Medical Oncologist/Traveling Buyer Hematology and Oncology 05/11/19 Jacob Flynn MD [address] [facility] [address] LL [address] [place] [address] Radiation Oncologist Radiation Oncology 05/25/19 documented as of this encounter
--- OUTSIDE RECORDS SUMMARY | 2024-03-02 04:22 | XMS_ITS | Encounter Summary ---
Author Organization [facility] Address [address] [place] [address] Phone Care Team Providers Care Metalizer Name Role Phone Clara Stanley Primary Care Provider + Jasper Canchola MD Unavailable [phone] Alexis Lopez MD Unavailable [phone] Kip Del Rio MD Unavailable Jacob Flynn MD Unavailable [phone] Reason for Referral * MRI/CAT/PET Scan (Routine) - Closed Specialty Diagnoses / Procedures Referred By Contac t Referred To Contact Radiology Diagnoses High grade neuroendocrine carcinoma (HCC) Procedures CT Chest W Contrast Jasper Canchola MD Phone: tel: fax: [address] [address] Referral ID Status Reason Start Date Expiration Date Visits Re quested Visits Authorized [id number] Closed 12/04/2020 03/04/2021 1 1 Encounter Details Date Type Department Care Team (Late st Contact Info) Description 09/21/2020 Orders Only [facility] Surgery [facility] Advanced Medicine 8th [place] [address] [place] [address] Jasper Canchola MD [address] [place] [address] 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) Social History Tobacco Use Types Packs/Day Years Used Date Smoking Tobacco: Never Smokeless Tobacco: Never Alcohol Use Standard Drinks/Week Comments Yes 2 (1 standard drink = 0.6 oz pur e alcohol) Sex and Gender Information Value Date Recorded Sex Assigned at Not on file Legal Sex Male 1:17 AM WATER RESOURCE CONSULTANT Gender Identity Not on file Sexual [...] (HCC) documented in this encounter Care Teams Metalizer Relationship Specialty Start Date End Date Clara Stanley PA [address] [place] [address] PCP - General Nurse Practitioner 04/05/19 Jasper Canchola MD [facility] [place] [address] Surgeon Thoracic Surgery 05/11/19 Alexis Lopez MD [address] [address] Warp Trucker Pulmonary Disease 05/11/19 Kip Del Rio MD 49[address] [facility] [address] [place] [address] Medical Oncologist/Warehouse Order Puller Hematology and Oncology 05/11/19 Jacob Flynn MD 4921 [facility] [address] LL [address] [place] [address] Radiation Oncologist Radiation Oncology 05/25/19 documented as of this encounter
--- OUTSIDE RECORDS SUMMARY | 2024-03-02 04:22 | XMS_ITS | Encounter Summary ---
Author Organization [facility] Address [address] [facility] [address] [place] [address] Phone Care Team Providers Care Clinical Data Abstractor Name Role Phone Clara Stanley Primary Care Provider + Jasper Canchola MD Unavailable Alexis Lopez MD Unavailable [phone] Kip Del Rio MD Unavailable [phone] Jacob Flynn MD Unavailable Reason for Visit * Consultation (Routine) - Closed Specialty Diagnoses / Procedures Referred By Contac t Referred To Contact Oncology Diagnoses 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 [address]15 [place] [address] Phone: tel: fax: Kip Del Rio MD Phone: tel: fax: Referral ID Status Reason Start Date Expiration Date V isits Requested Visits Authorized [id number] Closed Specialty Services Required 12/24/2020 03/15/2021 99 99 Encounter Details Date Type Department Care Team (Late st Contact Info) Description 12/27/2020 2:40 PM CDT Office Visit [facility] Oncology [facility] 7th [place] [address] [place] [address] Kip Del Rio MD [address] [facility] [address] [place] [address] Malignant neoplasm of lower lobe of right [...] file Legal Sex Male 1:17 AM FLOOR CLERK Gender Identity Not on file Sexual [...] child) ?? SOCIAL HISTORY: He lives in [place], [place]. He is is to Anna Kulkarni and they have three children all of whom live in the area. 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 He is a never smoker. He notes rare alcohol intake and denies recreational drug use. FAMILY HISTORY: ?? Mother: Cancer ?? Father: Heart disease and cancer ?? Sister: Snf smoker with history of lung cancer ?? [...] Assessment/Plan Mr. 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 [address] [place] [address] Medical Oncologist/Train Operator Hematology and Oncology 05/11/19 Jacob Flynn MD 4921 [facility] # [address] LL [address] [place] [address] Radiation Oncologist Radiation Oncology 05/25/19 documented as of this encounter
--- OUTSIDE RECORDS SUMMARY | 2024-03-02 04:22 | XMS_ITS | Encounter Summary ---
Author Organization [facility] Address [address] [place] [address] Care Team Providers Care Design Supervisor Name Role Phone Clara Stanley Primary Care Provider + Jasper Canchola MD Unavailable [phone] Alexis Lopez MD Unavailable [phone] Kip Del Rio MD Unavailable Jacob Flynn MD Unavailable Reason for Referral * MRI/CAT/PET Scan (Routine) - Closed Specialty Diagnoses / Procedures [facility] Referred To Contact Radiology Diagnoses High grade neuroendocrine carcinoma (HCC) Procedures CT Chest W Contrast Jasper Canchola MD Phone: tel: fax: [address] [address] Referral ID Status Reason Start Date Expiration Date Visits Re quested Visits Authorized [id number] Closed 12/04/2020 03/04/2021 1 1 Reason for Visit * MRI/CAT/PET Scan (Routine) - Closed Specialty Diagnoses / Procedures Referred By Contac t Referred To Contact Radiology Diagnoses High grade neuroendocrine carcinoma (HCC) Procedures CT Chest W Contrast Jasper Canchola MD Phone: tel: fax: [facility] 1 [facility] [place] [address] Referral ID Status Reason Start Date Expiration Date Visits Re quested Visits Authorized [id number] Closed 12/04/2020 03/04/2021 1 1 Encounter Details Date Type Department Care Team (Latest Contact Info) Description 12/14/2020 7:56 AM CDT - 12/14/2020 11:59 PM CDT Hospital Encounter [facility] [address] [place] [address] Jasper Canchola MD [address] [place] [address] High grade neuroendocrine carcinoma (CMS/HCC) (HCC) Discharge [...] file Legal Sex Male 1:17 AM SPECIAL TESTER Gender Identity Not on file Sexual [...] lobectomy. Electronically signed by: Maye Jung MD Jsaper Canchola MD IMG CT PROCEDURES Final R esult * POCT creatinine (12/14/2020 8:10 AM CDT) Creatinine POC 0.9 0.7 - 1.3 mg/dL [facility] Blood 12/14/2020 8:10 AM CDT 12/14/2020 8:10 AM CDT us Jasper Canchola MD LAB POCT ORDERABLES - DEV ICE Final Result [facility] Department of Laboratories [place], [place] [id number] documented in this encounter Visit Diagnoses Diagnosis [...] 12/14/2020 documented in this encounter Care Teams Design Supervisor Relationship Specialty Start Date End Date Clara Stanley PA [address] [place] [address] PCP - General Nurse Practitioner 04/05/19 Jasper Canchola MD [address] [place] [address] Surgeon Thoracic Surgery 05/11/19 Alexis Lopez MD [address] [address] Surveillance Dual Rate Officer Pulmonary Disease 05/11/19 Kip Del Rio MD [address] [place], [place] [id number] Medical Oncologist/General Road Production Manager Hematology and Oncology 05/11/19 Jacob Flynn MD [address] [place] [address] Radiation Oncologist Radiation Oncology 05/25/19 documented as of this encounter
--- OUTSIDE RECORDS SUMMARY | 2024-03-02 04:22 | XMS_ITS | Encounter Summary ---
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 Gender Identity Not on file Sexual [...] on filedocumented in this encounter Care Teams Polygraph Operator Relationship Specialty Start Date End Date Clara Stanley PA [address] [place] [address] PCP - General Nurse Practitioner 04/05/19 Jasper Canchola MD [address] [place] [address] Surgeon Thoracic Surgery 05/11/19 Alexis Lopez MD [address] [facility] [address] [place] [address] [place] [address] Chicken Hanger Pulmonary Disease 05/11/19 Kip Del Rio MD [address] [facility] [address] [place] [address] Medical Oncologist/Boil Off Machine Operator Cloth Hematology and Oncology 05/11/19 Jacob Flynn MD [address] [place] [address] Radiation Oncologist Radiation Oncology 05/25/19 documented as of this encounter
--- OUTSIDE RECORDS SUMMARY | 2024-03-02 04:22 | XMS_ITS | Encounter Summary ---
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 on file Not on file documented as of this encounter Plan of Treatment Not on file documented as of this encounter Procedures Procedure Name Priority Date/Time Associated Diagnosis Comments RAD ONC ARIA SESSION SUMMARY 02/03/2021 8:38 AM MINI SHIFTER documented in this encounter Results * RAD ONC ARIA SESSION SUMMARY (02/03/2021 8:38 AM MINI SHIFTER) Course Name [id number] ARIA Course Plan Date 01/18/2021 1:45 PM ARIA Elapsed Days 3 ARIA Treatment Start Date 01/31/2021 ARIA Treatment Site lung dpv ARIA Dose Given To Date (cGy) 1,200 ARIA Session Dosage Given (cGy) 400 ARIA Plan ID MEDIASTINUM ARIA Fractions Treated 3 ARIA Prescribed Dose Per Fraction (cGy) 400 ARIA Prescribed Total Dose (cGy) 6,000 ARIA 02/03/2021 8:38 AM MINI SHIFTER us Not In File Miscellaneous RADIATION ONCOLOGY ORD ERABLES Final Result ARIA documented in this encounter Visit Diagnoses Not on filedocumented in this encounter Care Teams Powdered Sugar Pulverizer Operator Relationship Specialty Start Date End Date Clara Stanley PA [address] [place] [address] PCP - General Nurse Practitioner 04/05/19 Jasper Canchola MD [address] [place] [address] Surgeon Thoracic Surgery 05/11/19 Alexis Lopez MD 4600 [facility] [address] [address] It Infrastructure Specialist Pulmonary Disease 05/11/19 Kip Del Rio MD 4921 [facility] [address] [place] [address] Medical Oncologist/Manager Scientific Hematology and Oncology 05/11/19 Jacob Flynn MD 4921 [facility] [address] [place] [address] Radiation Oncologist Radiation Oncology 05/25/19 documented as of this encounter
--- OUTSIDE RECORDS SUMMARY | 2024-03-02 04:22 | XMS_ITS | Encounter Summary ---
Author Organization [facility] Address [address] [place] [address] Care Team Providers Care Machining Supervisor Name Role Phone Clara Stanley Primary Care Provider + Jasper Canchola MD Unavailable [phone] Alexis Lopez MD Unavailable [phone] Kip Del Rio MD Unavailable Jacob Flynn MD Unavailable Reason for Referral * Diagnostic Imaging (Routine) - Closed Specialty Diagnoses / Procedures Referred By Erik galdamez Referred To Contact Radiology Diagnoses History of lung cancer Procedures CT Chest W Contrast Stephanie Bautista NP Phone: tel: fax: [address] [address] Referral ID Status Reason Start Date Expiration Date Visits Re quested Visits Authorized [id number] Closed 08/20/2020 11/18/2020 1 1 Reason for Visit * Diagnostic Imaging (Routine) - Closed Specialty Diagnoses / Procedures Referred By Erik galdamez Referred To Contact Radiology Diagnoses History of lung cancer Procedures CT Chest W Contrast Stephanie Bautista NP Phone: tel: fax: [address] [place] [address] Referral ID Status Reason Start Date Expiration Date Visits Re quested Visits Authorized [id number] Closed 08/20/2020 11/18/2020 1 1 Encounter Details Date Type Department Care Team (Latest Contact Info) Description 09/19/2020 1:36 PM CDT - 09/19/2020 11:59 PM CDT Hospital Encounter [facility] [address] [place] [address] Jasper Canchola MD [address] [facility] [address] [place] [address] Stephanie Bautista NP [address] [facility] [address] [place] [address] History of lung cancer Discharge Disposition: Discharge to home or self care Social History Tobacco Use Types Packs/Day Years Used Date Smoking Tobacco: Never Smokeless Tobacco: Never Alcohol Use Standard Drinks/Week Comments Yes 2 (1 standard drink = 0.6 oz pur e alcohol) Sex and Gender Information Value Date Recorded Sex Assigned at Not on file 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 Gender Identity Not on file Sexual Orientation [...] POC 0.8 0.7 - 1.3 mg/dL [facility] Blood specimen (specimen) 09/19/2020 1:52 PM CDT 09/19/2020 1:52 PM CDT Stephanie Bautista NP LAB POCT ORDERABLES - DEVICE Fi nal Result [facility] Department [place] [address] documented in this encounter Visit Diagnoses Diagnosis [...] 09/19/2020 documented in this encounter Care Teams Machining Supervisor Relationship Specialty Start Date End Date Clara Stanley PA [address] [place] [address] PCP - General Nurse Practitioner 04/05/19 Jasper Canchola MD [address] [place] [address] Surgeon Thoracic Surgery 05/11/19 Alexis Lopez MD [address] [address] Carpenter Rough Pulmonary Disease 05/11/19 Kip Del Rio MD [address] [facility] [address] [place] [address] Medical Oncologist/Tape Cutter Hematology and Oncology 05/11/19 Jacob Flynn MD [address] [facility] [address] [place] [address] Radiation Oncologist Radiation Oncology 05/25/19 documented as of this encounter
--- OUTSIDE RECORDS SUMMARY | 2024-03-02 04:22 | XMS_ITS | Encounter Summary ---
Author Organization [facility] Healthcare Address [address] [place] [address] Care Team Providers Care Curriculum Counselor Name Role Phone Clara Stanley Primary Care Provider + Jasper Canchola MD Unavailable Alexis Lopez MD Unavailable [phone] Kip Del Rio MD Unavailable Jacob Flynn MD Unavailable [phone] Encounter Details Date Type Department Care Team (Late st Contact Info) Description 01/08/2021 10:00 AM CDT Consult [facility] Radiation Oncology [facility] Advanced Medicine [facility] [place] [address] Jacob Flynn MD [facility] [address] LL [address] [place] [address] Neuroendocrine carcinoma of lung (CMS/HCC) (HCC) (Primary [...] on file 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 Dr. Canchola spoke to [...] : CT chest with contrast 12/14/2020 at [facility]: slight increase in enlarged high right paratracheal node measuring 1.[address] imaging of the chest at this facility dated 09/19/2020 the right paratracheal nodemeasured 1 cm in short axis. This node measured 7 mm on 03/28/2020 imaging. Stable lung nodules measuring up to 5 mm and stable post surgical changes from right lower lobectomy. PET/CT CU-64 DOTATATE performed on 01/08/2021 at [facility] demonstrates the right paratracheal lymph nodehas intense [...] reviewed. Past Medical History: Diagnosis Date ??? LIEDA (acute kidney injury) (CMS/HCC) (HCC) ??? Asthma [...] and Family: Not on file ??? Attends Zoroastrian Services: Not on file ??? Active Member [...] therapy: No Pacemaker: No Pathology reviewed at [facility]: Yes, see HPI Other implantable devices: No [...] documented as of this encounter Care Teams Curriculum Counselor Relationship Specialty Start Date End Date Clara Stanley PA [address] [place] [address] PCP - General Nurse Practitioner 04/05/19 Jasper Canchola MD [address] [place] [address] Surgeon Thoracic Surgery 05/11/19 Alexis Lopez MD 4600 [facility] [address] [address] Burr Bench Operator Pulmonary Disease 05/11/19 Kip Del Rio MD 4921 [facility] [address] [place] [address] Medical Oncologist/Facility Maintenance Supervisor Hematology and Oncology 05/11/19 Jacob Flynn MD 49[address] [facility] [address] [place] [address] Radiation Oncologist Radiation Oncology 05/25/19 documented as of this encounter
--- OUTSIDE RECORDS SUMMARY | 2024-03-02 04:23 | XMS_ITS | Encounter Summary ---
Author Organization [facility] Address [address] [place] [address] Care Team Providers Care Manager Of Program Name Role Phone Clara Stanley Primary Care Provider + Jasper Canchola MD Unavailable Alexis Lopez MD Unavailable Kip Del Rio MD Unavailable Jacob Flynn MD Unavailable Encounter Details Date Type Department Care Team (Late st Contact Info) Description 08/10/2019 8:30 AM CDT - 08/10/2019 10:00 AM CDT Surgery [facility] Operating Room [address] [place] [address] Jasper Canchola MD [id number] [place] [address] BRONCHOSCOPY Surgery Details Date/Time Status Location OR Service Patient Class Case Class Case Type Trauma Case? 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 Follow up with primary care and manager fire as planned. Do not drive, operate heavy machinery or make any important life or legal decisions for 24 hours. Advance diet slowly to avoid nausea/vomiting. May call Dr. Canchola's office with any questions/concerns: [phone] * Attachments The following attachments cannot be sent through Care Everywhere. * Flexible Bronchoscopy (Discharge Care) (Yoruba) * [facility] PATHWAY TO EXCELLENT CARE AFTER SURGERY [...] and Planning Preoperative Evaluation Record Evaluation type/location: [facility] Planned procedure site: [facility] (Pods 2/3/5/FAMILY DEVELOPMENT EXTENSION SPECIALIST) Date: 08/03/19 Anesthesia Evaluation NOTE: This note [...] to be performed on 08-08-2019 at the [facility]. . Blood bank needs for day [...] INCL FLUOR GDNCE DX W/CELL WASHG SPX [[id number]] (BRONCHOSCOPY) Center for Preoperative Assessment and Planning Preoperative Evaluation Record ?? Evaluation type/location: CPAP [facility] ?? Planned procedure site: [facility] OR (Pods 2/3/5/FAMILY DEVELOPMENT EXTENSION SPECIALIST) ?? Date: 08/03/19 ?? Anesthesia Evaluation NOTE: [...] to be performed on 08-08-2019 at the [facility]. . Blood bank needs for day [...] MD - Fellow Anesthesiologist: Keaton Beck MD Public Works Director: Cuauhtemoc Solis MD Concrete Block Layer: Rickey Booker RN Scrub: ST Froylan DATE [...] Diagnostic flexible bronchoscopy. Surgeon Jasper Canchola MD. Loan Broker Jorge Gonzales. Anesthesia General. Clinical Note This [...] no complications noted. Job ID/VF Job ID: [id number] * Pre-Procedure Instructions - Laura Miguel NP - 08/03/2019 4:35 PM CDT Center for Preoperative Assessment and Planning CPAP Clinic Location: [facility] The night before your surgery: * Do [...] Planning Perioperative Nursing Note Telephone Preoperative Evaluation ([facility]) - TELEPHONE ONLY, NO PHYSICAL EXAM [...] Directive: Patient does not have advance directive Communication/Machine Assembler Needs Communication Needs: Contacts, Glasses Assistive Devices/DME: Eyeglasses Discharge Planning Type of Residence: Private residence Living Arrangements: Spouse/significant other Support Systems: Spouse/significant other(truck driver salesperson: (esther)) Patient expects to be discharged to:: Private residence ADDITIONAL COMMENTS/ FOLLOW UP COVID test scheduled for 08-07 at [facility] * Pre-Procedure Instructions - Zenobia Adams [...] insurance card, a photo ID (like a Color Corrector's license) and a method of payment for [...] or department store or come by our [facility] CPAP clinic and we will give [...] your physician. You may also contact the [facility] Dietitian, Ama Amish, @ [phone]. ?? Increase energy needs: Your body uses [...] (meat, fish, eggs, milk, hard cheese, and Liberian yogurt). Plant sources (tofu, edamame, beans, nuts [...] Boost, Muscle Milk, Orgain-plant bases, [place]-plant bases, [place] Breakfast Essentials). ??? If your surgeon's office has not notified you of your surgery time by NOON THE DAY BEFORE your surgery, please call [phone] and ask for your surgeon's office. documented [...] mixed bacterial migue seen on Gram stain. [facility] Report Final Report: Growth indicates upper respiratory migue. [facility] Organism GROWTH INDICATES UPPER RESPIRATORY MIGUE. [facility] Bronchial washing (Bronchial) 08/10/2019 8:50 AM CDT 08/10/2019 12:10 PM CDT Narrative [facility] - 08/12/2019 9:15 AM CDT Tracheo-bronchial washing Testing performed by [facility] Microbiology Laboratory ([phone]) Specimens submitted from normally sterile body sites [...] MICROBIOLOGY - GENERA L ORDERABLES Final Result [facility] Department [place] [address] * (ABNORMAL) Mycology (fungal) culture Bronchial washing Bronchial (08/10/2019 8:50 AM CDT) Report Final Report: Rare Yeast Stephanie pneumonia is very rare and requires a histopathological diagnosis. ??The recovery of these organisms in routine culture, in most cases, only represents overgrowth of the organism secondary to antimicrobial therapy. Please contact the microbiology laboratory at [phone] if identification or susceptibility testing is clinically indicated. (.) [facility] Organism YEAST [facility] Bronchial washing (Bronchial) 08/10/2019 8:50 AM CDT 08/10/2019 12:08 PM CDT Narrative [facility] - 09/07/2019 9:33 AM CDT Tracheo-bronchial washing Testing performed by [facility] Microbiology Laboratory ([phone]). Jasper Canchola MD LAB MICROBIOLOGY - GENERA L ORDERABLES Final Result [facility] Department [place] [address] documented in this encounter Visit Diagnoses Diagnosis [...] 07/15 documented in this encounter Care Teams Manager Of Program Relationship Specialty Start Date End Date Clara Stanley PA [address] [place] [address] PCP - General Nurse Practitioner 04/05/19 Jasper Canchola MD [address] [place] [address] Surgeon Thoracic Surgery 05/11/19 Alexis Lopez MD [address] [address] Packaging Specialist Pulmonary Disease 05/11/19 [place] [address] [place] [address] [place] [address] [id number] Medical Oncologist/Marketing Finance Specialist Hematology and Oncology 05/11/19 Jacob Flynn MD [address] [facility] [address] [place] [address] Radiation Oncologist Radiation Oncology 05/25/19 documented as of this encounter
--- OUTSIDE RECORDS SUMMARY | 2024-03-02 04:23 | XMS_ITS | Encounter Summary ---
Author Organization [facility] Address [address] [facility] [address] [place] [address] Care Team Providers Care Silviculture Teacher Name Role Phone Clara Stanley Primary Care Provider + Jasper Canchola MD Unavailable Alexis Lopez MD Unavailable Kip Del Rio MD Unavailable Jacob Flynn MD Unavailable Encounter Details Date Type Department Care Team (Late st Contact Info) Description 08/25/2019 Telephone [facility] Pulmonology [address] [facility] [address] [place] [address] Yolanda Segal, KAMILA Social History Tobacco Use Types Packs/Day Years Used Date Smoking Tobacco: Never Smokeless Tobacco: Never Alcohol Use Standard Drinks/Week Comments Yes 2 (1 standard drink = 0.6 oz pur e alcohol) Sex and Gender Information Value Date Recorded Sex Assigned at Not on file 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 Gender Identity Not on file Sexual [...] on filedocumented in this encounter Care Teams Silviculture Teacher Relationship Specialty Start Date End Date Clara Stanley PA [address] [place] [address] PCP - General Nurse Practitioner 04/05/19 Jasper Canchola MD [address] [place] [address] Surgeon Thoracic Surgery 05/11/19 Alexis Lopez MD [address] [facility] [address] [place] [address] Solutions Sales Consultant Pulmonary Disease 05/11/19 Kip Del Rio MD [address] [facility] [address] [place] [address] Medical Oncologist/Stonemason Apprentice Hematology and Oncology 05/11/19 Jacob Flynn MD [address] [facility] [address] [place] [address] Radiation Oncologist Radiation Oncology 05/25/19 documented as of this encounter
--- OUTSIDE RECORDS SUMMARY | 2024-03-02 04:23 | XMS_ITS | Encounter Summary ---
Author Organization [facility] Address [address] [facility] [address] [place] [address] Care Team Providers Care Outcome Analyst Name Role Phone Clara Stanley Primary Care Provider + Jasper Canchola MD Unavailable Alexis Lopez MD Unavailable [phone] Kip Del Rio MD Unavailable Jacob Flynn MD Unavailable [phone] Reason for Visit * Reason Comments Follow-up Encounter Details Date Type Department Care Team (Late st Contact Info) Description 12/02/2019 9:30 AM CDT Office Visit [facility] Pulmonology [address] [facility] [address] [place] [phone] [place] [address] [place] [address] [address] [place] [address] Malignant neoplasm of lower lobe of right [...] on file 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 Canchola at [facility]. He had a high-grade neuroendocrine carcinoma [...] on phone: None Gets together: None Attends anabaptist service: None Active member of club or [...] high-grade neuroendocrine carcinoma. He is followed at [facility] by Dr. Canchola. His next CT [...] documented as of this encounter Care Teams Outcome Analyst Relationship Specialty Start Date End Date Clara Stanley PA [address] [place] [address] PCP - General Nurse Practitioner 04/05/19 [place] [address] [place] [address] Surgeon Thoracic Surgery 05/11/19 [place] [address] [place] [address] DR G[address]VIN [address] [place] [address] Armature Winder Pulmonary Disease 05/11/19 Kip Del Rio MD [address] [facility] [address] [place] [address] Medical Oncologist/Lan/Wan Engineer Hematology and Oncology 05/11/19 Jacob Flynn MD [address] [facility] [address] [place] [address] Radiation Oncologist Radiation Oncology 05/25/19 documented as of this encounter
--- OUTSIDE RECORDS SUMMARY | 2024-03-02 04:23 | XMS_ITS | Encounter Summary ---
Author Organization [facility] Address [address] [place] [address] Care Team Providers Care Retirement Assistant Name Role Phone Clara Stanley Primary Care Provider + Jasper Canchola MD Unavailable Alexis Lopez MD Unavailable [phone] Kip Del Rio MD Unavailable [phone] Jacob Flynn MD Unavailable Reason for Referral * Diagnostic Imaging (Routine) - Closed Specialty Diagnoses / Procedures Referred By Erik t Referred To Contact Diagnoses Malignant neoplasm of lower lobe of right lung (HCC) Procedures XR Chest PA Lateral 2 Views Alexis Lopez MD [address] [facility] [address] [place] [address] Phone: tel: fax: [address] [address] Referral ID Status Reason Start Date Expiration Date Visits Re quested Visits Authorized [id number] Closed 08/12/2019 02/20/2021 1 1 Encounter Details Date Type Department Care Team (Late st Contact Info) Description 08/16/2019 10:48 AM CDT Hospital Encounter [facility]IM Alexis Lopez MD [address] [facility] [address] [place] [address] Malignant neoplasm of lower lobe of right lung (CMS/HCC) Social History Tobacco Use Types Packs/Day Years Used Date Smoking Tobacco: Never Smokeless Tobacco: Never Alcohol Use Standard Drinks/Week Comments Yes 2 (1 standard drink = 0.6 oz pur e alcohol) Sex and Gender Information Value Date Recorded Sex Assigned at Not on file 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 Age: 54 ?Sex: Male ? MR#: [id number] ?? Loc: ? RADIOLOGY REPORT ?? Order #[id number] ?? Radiology ? Chest 2 Views ? [...] T: ??08/16/2019 1:46 PM ? Report ID: [id number] ?? Reading Location: ??[id number] ? REPORT ELECTRONICALLY SIGNED IN OTHER VENDOR SYSTEM ?? Resulting Agency Comment O Procedure Note Roberto Staples MD - 08/16/2019 Patient Name: KWAKU BULLOCK Pedro Dr: Alexis Lopez MD, D.O.B: 1965 Exam Date: 08/16/19 1050 Age: 54 Sex: Male MR#: [id number] Loc: RADIOLOGY REPORT Order #[id number] Radiology Chest 2 Views Signed EXAM DESCRIPTION: [...] Roberto Staples M.D. RH: RH Report ID: [id number] Reading Location: [id number] REPORT ELECTRONICALLY SIGNED IN OTHER VENDOR SYSTEM Alexis Lopez MD IMG XR PROCEDURES Final R esult documented in this encounter Visit Diagnoses Diagnosis Malignant neoplasm of lower lobe of right lung (HCC) documented in this encounter Care Teams Retirement Assistant Relationship Specialty Start Date End Date Clara Stanley PA [address] [place] [address] PCP - General Nurse Practitioner 04/05/19 Jasper Canchola MD [address] [place] [address] Surgeon Thoracic Surgery 05/11/19 Alexis Lopez MD [address] [address] Manager Sign Pulmonary Disease 05/11/19 Kip Del Rio MD [address] [facility] [address] [place] [address] Medical Oncologist/Junior Java Developer Hematology and Oncology 05/11/19 Jacob Flynn MD [address] [facility] [address] [place] [address] Radiation Oncologist Radiation Oncology 05/25/19 documented as of this encounter
--- OUTSIDE RECORDS SUMMARY | 2024-03-02 04:23 | XMS_ITS | Encounter Summary ---
Author Organization [facility] Address [address] [place] [address] Care Team Providers Care Cell Attendant Helper Name Role Phone Clara Stanley Primary Care Provider + Jasper Canchola MD Unavailable Alexis Lopez MD Unavailable Kip Del Rio MD Unavailable Jacob Flynn MD Unavailable Encounter Details Date Type Department Care Team (Late st Contact Info) Description 08/24/2019 7:42 AM CDT Hospital Encounter [facility] INTERIM Alexis Lopez MD [address] [facility] [address] [address] Social History Tobacco Use Types Packs/Day Years Used Date Smoking Tobacco: Never Smokeless Tobacco: Never Alcohol Use Standard Drinks/Week Comments Yes 2 (1 standard drink = 0.6 oz pur e alcohol) Sex and Gender Information Value Date Recorded Sex Assigned at Not on file Legal Sex Male 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 Gender Identity Not on file Sexual Orientation [...] on filedocumented in this encounter Care Teams Cell Attendant Helper Relationship Specialty Start Date End Date Clara Stanley PA [address] [place] [address] PCP - General Nurse Practitioner 04/05/19 Jasper Canchola MD [address] [place] [address] Surgeon Thoracic Surgery 05/11/19 Alexis Lopez MD [address] [address] Cooker Tender Pulmonary Disease 05/11/19 Kip Del Rio MD [address] [facility] [address] [place] [address] Medical Oncologist/Flower Pot Press Operator Hematology and Oncology 05/11/19 Jacob Flynn MD [address] [facility] [address] [place] [address] Radiation Oncologist Radiation Oncology 05/25/19 documented as of this encounter
--- OUTSIDE RECORDS SUMMARY | 2024-03-02 04:23 | XMS_ITS | Encounter Summary ---
Author Organization [facility] Address [address] [facility] [address] [place] [address] Care Team Providers Care Licensed Massage Practitioner Name Role Phone Clara Stanley Primary Care Provider + Jasper Canchola MD Unavailable Alexis Lopez MD Unavailable [phone] Kip Del Rio MD Unavailable Jacob Flynn MD Unavailable Reason for Visit * Reason Comments Follow-up Encounter Details Date Type Department Care Team (Late st Contact Info) Description 08/31/2019 11:45 AM CDT Office Visit [facility] Pulmonology [address] [facility] [address] [place] [phone] Alexis Lopez MD [address] [facility] [address] [place] [address] High grade neuroendocrine carcinoma (CMS/HCC) (Primary Dx); Cough, persistent; Snoring Social History Tobacco Use Types Packs/Day Years Used Date Smoking Tobacco: Never Smokeless Tobacco: Never Alcohol Use Standard Drinks/Week Comments Yes 2 (1 standard drink = 0.6 oz pur e alcohol) Sex and Gender Information Value Date Recorded Sex Assigned at Not on file Legal Sex Male 1:17 AM PATIENT ADMITTING CLERK Gender Identity Not on file [...] documented in this encounter Progress Notes * Alexsi Lopez MD - 08/31/2019 11:45 AM CDT [...] did recently have skin testing by an major assembly inspector and was not found to be allergic [...] on phone: None Gets together: None Attends lutheran service: None Active member of club or [...] He is following with Dr. Canchola at [facility] in September with another chest CT [...] 08/31/2019 documented in this encounter Care Teams Licensed Massage Practitioner Relationship Specialty Start Date End Date Clara Stanley PA [address] [place] [address] PCP - General Nurse Practitioner 04/05/19 Jasper Canchola MD [facility] [place] [address] Surgeon Thoracic Surgery 05/11/19 Alexis Lopez MD [address] [facility] [address] [address] Sinter Feeder Pulmonary Disease 05/11/19 Kip Del Rio MD [address] [facility] [address] [place] [address] Medical Oncologist/Public Health Educator Hematology and Oncology 05/11/19 Jacob Flynn MD [address] [facility] [address] [place] [address] Radiation Oncologist Radiation Oncology 05/25/19 documented as of this encounter
--- OUTSIDE RECORDS SUMMARY | 2024-03-02 04:23 | XMS_ITS | Encounter Summary ---
Author Organization [facility] Address [address] [facility] [address] [place] [address] Care Team Providers Care Solid State Tester Name Role Phone Clara Stanley Primary Care Provider + Jasper Canchola MD Unavailable Aelxis Lopez MD Unavailable Kip Del Rio MD Unavailable Jacob Flynn MD Unavailable [phone] Encounter Details Date Type Department Care Team (Late st Contact Info) Description 08/17/2019 Telephone [facility] Pulmonology [address] [facility] [address] [place] [address] Alexis Lopez MD [address] [facility] [address] [place] [address] Social History Tobacco Use Types Packs/Day Years Used Date Smoking Tobacco: Never Smokeless Tobacco: Never Alcohol Use Standard Drinks/Week Comments Yes 2 (1 standard drink = 0.6 oz pur e alcohol) Sex and Gender Information Value Date Recorded Sex Assigned at Not on file Legal Sex Male 1:17 AM COOKER MEAL Gender Identity Not on file Sexual Orientation [...] on filedocumented in this encounter Care Teams Solid State Tester Relationship Specialty Start Date End Date Clara Stanley PA [address] [place] [address] PCP - General Nurse Practitioner 04/05/19 Jasper Canchola MD [address] [place] [address] Surgeon Thoracic Surgery 05/11/19 Alexis Lopez MD [address] [address] Rn Patient Care Pulmonary Disease 05/11/19 Kip Del Rio MD [address] [facility] [address] [place] [address] Medical Oncologist/Head Cd Reactor Operator Hematology and Oncology 05/11/19 Jacob Flynn MD [address] [facility] [address] [place] [address] Radiation Oncologist Radiation Oncology 05/25/19 documented as of this encounter
--- OUTSIDE RECORDS SUMMARY | 2024-03-02 04:23 | XMS_ITS | Encounter Summary ---
Author Organization formerly [facility] Address [address] [place] [address] Care Team Providers Care Quality Improvement Engineer Name Role Phone Clara Stanley Primary Care Provider + Jasper Canchola MD Unavailable Alexis Lopez MD Unavailable [phone] Kip Del Rio MD Unavailable Jacob Flynn MD Unavailable [phone] Reason for Referral * Diagnostic Imaging (Routine) - Closed Specialty Diagnoses / Procedures Referred By Erik galdamez Referred To Contact Radiology Diagnoses Lung nodule Procedures CT Chest W Contrast Stephanie Bautista NP Phone: tel: fax: [address] [address] Referral ID Status Reason Start Date Expiration Date Visits Re quested Visits Authorized [id number] Closed 03/02/2020 08/31/2020 1 1 EMATICS EDUCATION PROFESSOR Reason for Visit * Diagnostic Imaging (Routine) - Closed Specialty Diagnoses / Procedures Referred By Erik galdamez Referred To Contact Radiology Diagnoses Lung nodule Procedures CT Chest W Contrast Stephanie Bautista NP Phone: tel: fax: [address] [address] Referral ID Status Reason Start Date Expiration Date Visits Re quested Visits Authorized [id number] Closed 03/02/2020 08/31/2020 1 1 Encounter Details Date Type Department Care Team (Latest Contact Info) Description 03/28/2020 2:58 PM MATHEMATICS EDUCATION PROFESSOR - 03/28/2020 11:59 PM MATHEMATICS EDUCATION PROFESSOR Hospital Encounter [facility] [place] [address] Jasper Canchola MD [address] [facility] [address] [place] [address] Stephanie Bautista NP [address] [facility] [address] [place] [address] Lung nodule Discharge Disposition: Discharge to home or self care Social History Tobacco Use Types Packs/Day Years Used Date Smoking Tobacco: Never Smokeless Tobacco: Never Alcohol Use Standard Drinks/Week Comments Yes 2 (1 standard drink = 0.6 oz pur e alcohol) Sex and Gender Information Value Date Recorded Sex Assigned at Not on file Legal Sex Male 1:17 AM MATHEMATICS EDUCATION PROFESSOR Gender Identity Not on file Sexual Orientation [...] W CONTRAST Routine 03/28/2020 3 :11 PM MATHEMATICS EDUCATION PROFESSOR Lung nodule POCT CREATININE - DEVICE Routine 03/28/2020 2:58 PM MATHEMATICS EDUCATION PROFESSOR documented in this encounter Results * CT Chest W Contrast (03/28/2020 3:11 PM MATHEMATICS EDUCATION PROFESSOR) Anatomical Region Laterality Modality Body N/A Computed Tomogra phy 03/28/2020 3:23 PM MATHEMATICS EDUCATION PROFESSOR Impressions 03/28/2020 3:23 PM MATHEMATICS EDUCATION PROFESSOR Postoperative changes of a right lower lobectomy with a small amount of pleural fluid and pleural thickening. 2 tiny right lung and one a tiny left lung pulmonary nodule, all of which are stable. Electronically signed by: Claudia Darling M.D. Narrative 03/28/2020 3:23 [address] EDUCATION PROFESSOR CT chest with intravenous contrast CLINICAL HISTORY: [...] signed by: Claudia Darling M.D. Stephanie Bautista ICE HOCKEY COACH IMG CT PROCEDURES Final Result * POCT creatinine (03/28/2020 2:58 PM MATHEMATICS EDUCATION PROFESSOR) Creatinine POC 0.9 0.7 - 1.3 mg/dL [facility] Blood specimen (specimen) 03/28/2020 2:58 PM MATHEMATICS EDUCATION PROFESSOR 03/28/2020 2:58 PM MATHEMATICS EDUCATION PROFESSOR Stephanie Bautista NP LAB POCT ORDERABLES - DEVICE Fi nal Result [facility] Department [place] [address] documented in this encounter Visit Diagnoses Diagnosis [...] For 1 dose Given 03/28/2020 3:12 PM MATHEMATICS EDUCATION PROFESSOR 100 mL documented in this encounter Orders Medications Ordered That Vikram ht Not Have Been Administered Count Last Ordered Date First Ordered Date ioversoL (OPTIRAY 350) syrin ge syringe 100 mL 1 03/28/2020 documented in this encounter Care Teams Quality Improvement Engineer Relationship Specialty Start Date End Date Clara Stanley PA [address] [place] [address] PCP - General Nurse Practitioner 04/05/19 Jasper Canchola MD [address] [place] [address] Surgeon Thoracic Surgery 05/11/19 Alexis Lopez MD [address] [place] [address] [address] Cartoon Designer Pulmonary Disease 05/11/19 Kip Del Rio MD [address] [facility] [address] [place] [address] Medical Oncologist/Instrument Assembly Supervisor Hematology and Oncology 05/11/19 Jacob Flynn MD [address] [facility] [address] [place] [address] Radiation Oncologist Radiation Oncology 05/25/19 documented as of this encounter
--- OUTSIDE RECORDS SUMMARY | 2024-03-02 04:23 | XMS_ITS | Encounter Summary ---
Author Organization [facility] Address [address] [place] [address] Care Team Providers Care Urgent Care Nurse [...] MHB OP INTERIM Alexis Lopez MD [address] [facility] [address] [address] Discharge Disposition: Discharge to home or self care Social History Tobacco Use Types Packs/Day Years Used Date Smoking Tobacco: Never Smokeless Tobacco: Never Alcohol Use Standard Drinks/Week Comments Yes 2 (1 standard drink = 0.6 oz pur e alcohol) Sex and Gender Information Value Date Recorded Sex Assigned at Not on file Legal Sex Male 1:17 AM ASSOCIATE ENTERTAINMENT EDITOR Gender Identity Not on file Sexual [...] Date End Date Clara Stanley PA [address] [place] [address] PCP - General Nurse Practitioner 04/05/19 Jasper Canchola MD [address] [place] [address] Surgeon Thoracic Surgery 05/11/19 Alexis Lopez MD [address] [facility] [address] [address] Engineering Intern Pulmonary Disease 05/11/19 Kip Del Rio MD [address] [facility] [address] [place] [address] Medical Oncologist/Mason Tender Hematology and Oncology 05/11/19 Jacob Flynn MD [address] [facility] [address] [place] [address] Radiation Oncologist Radiation Oncology 05/25/19 documented as of this encounter
--- OUTSIDE RECORDS SUMMARY | 2024-03-02 04:23 | XMS_ITS | Encounter Summary ---
Author Organization [facility] Address [address] [facility] [address] [place] [address] Care Team Providers Care Commissioned Fire Officer Name Role Phone Clara Stanley Primary Care Provider + Jasper Canchola MD Unavailable [phone] Alexis Lopez MD Unavailable [phone] Kip Del Rio MD Unavailable [phone] Jacob Flynn MD Unavailable Reason for Referral * Diagnostic Imaging (Routine) - Closed Specialty Diagnoses / Procedures Referred By Erik t Referred To Contact Diagnoses Malignant neoplasm of lower lobe of right lung (HCC) Procedures XR Chest PA Lateral 2 Views Alexis Lopez MD [address] [address] Phone: tel: fax: [address] [address] Referral ID Status Reason Start Date Expiration Date Visits Re quested Visits Authorized [id number] Closed 08/12/2019 02/20/2021 1 1 Encounter Details Date Type Department Care Team (Late st Contact Info) Description 08/12/2019 Orders Only [facility] Pulmonology [address] [facility] [address] [place] [address] Alexis Lopez MD [address] [facility] [address] [address] 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 Age: 54 ?Sex: Male ? MR#: [id number] ?? Loc: ? RADIOLOGY REPORT ?? Order #[id number] ?? Radiology ? Chest 2 Views ? [...] T: ??08/16/2019 1:46 PM ? Report ID: [id number] ?? Reading Location: ??[place] [address] ? REPORT ELECTRONICALLY SIGNED IN OTHER VENDOR SYSTEM ?? Resulting Agency Comment O Procedure Note Roberto Staples MD - 08/16/2019 Patient Name: KWAKU BULLOCK Dr: Alexis Lopez MD D.O.B: 1965 Exam Date: 08/16/19 1050 Age: 54 Sex: Male MR#: [id number] Loc: RADIOLOGY REPORT Order #[id number] Radiology Chest 2 Views Signed EXAM DESCRIPTION: [...] by Roberto Staples M.D. RH: Report ID: [id number] Reading Location: [id number] REPORT ELECTRONICALLY SIGNED IN OTHER VENDOR SYSTEM us Alexis Lopez MD IMG XR PROCEDURES Final R esult documented in this encounter Visit Diagnoses Diagnosis Malignant neoplasm of lower lobe of right lung (HCC)- Primary Malignant neoplasm of lower lobe of right lung (HCC) documented in this encounter Care Teams Commissioned Fire Officer Relationship Specialty Start Date End Date Clara Stanley PA [address] [place] [address] PCP - General Nurse Practitioner 04/05/19 Jasper Canchola MD [address] [place] [address] Surgeon Thoracic Surgery 05/11/19 Alexis Lopez MD [address] [address] Diesel Mechanic Pulmonary Disease 05/11/19 Kip Del Rio MD [address] [facility] [address] [place] [address] Medical Oncologist/Turret Lathe Tender Hematology and Oncology 05/11/19 Jacob Flynn MD [address] [facility] [address] [place] [address] Radiation Oncologist Radiation Oncology 05/25/19 documented as of this encounter
--- OUTSIDE RECORDS SUMMARY | 2024-03-02 04:23 | XMS_ITS | Encounter Summary ---
Author Organization [facility] Address [address] [place] [address] Phone Care Team Providers Care Immigration Consultant Name Role Phone Clara Stanley Primary Care Provider + Jasper Canchola MD Unavailable Alexis Lopez MD Unavailable [phone] Kip Del Rio MD Unavailable Jacob Flynn MD Unavailable [phone] Reason for Referral * Diagnostic Imaging (Routine) - Closed Specialty Diagnoses / Procedures Referred By Erik galdamez Referred To Contact Radiology Diagnoses Lung nodule Procedures CT Chest W Contrast Stephanie Bautista NP Phone: tel: fax: [address] [address] Referral ID Status Reason Start Date Expiration Date Visits Re quested Visits Authorized [id number] Closed 03/02/2020 08/31/2020 1 1 Encounter Details Date Type Department Care Team (Late st Contact Info) Description 09/23/2019 9:30 AM CDT Office Visit [facility] 8th [place] [address] [place] [address] Jasper Canchola MD [address] [place] [address] Lung nodule (Primary Dx) Social History Tobacco Use Types Packs/Day Years Used Date Smoking Tobacco: Never Smokeless Tobacco: Never Alcohol Use Standard Drinks/Week Comments Yes 2 (1 standard drink = 0.6 oz pur e alcohol) Sex and Gender Information Value Date Recorded Sex Assigned at Not on file Legal Sex Male 1:17 AM MOISTURE METER READER Gender Identity Not on file Sexual Orientation [...] Canchola MD - 09/23/2019 9:30 AM CDT [facility] Thoracic Surgery Note 09/26/2019 KALPANA Lema 1965 [...] much. Yours sincerely, G Noah Canchola MD Hospital Social Worker completed by using [employer] Direct speaking software, therefore, transcriptionvariances may occur. documented in this encounter Plan of Treatment Not on file documented as of this encounter Results * CT Chest W Contrast (03/28/2020 3:11 PM MOISTURE METER READER) Anatomical Region Laterality Modality Body N/A Computed Tomogra phy 03/28/2020 3:23 PM MOISTURE METER READER Impressions 03/28/2020 3:23 PM MOISTURE METER READER Postoperative changes of a right lower lobectomy with a small amount of pleural fluid and pleural thickening. 2 tiny right lung and one a tiny left lung pulmonary nodule, all of which are stable. Electronically signed by: Claudia Darling M.D. Narrative 03/28/2020 3:[address] chest with intravenous contrast CLINICAL HISTORY: [...] signed by: Claudia Darling M.D. Stephanie Bautista ROTOGRAVURE PRESS OPERATOR IM CT PROCEDURES Final Result documented in [...] 12/02/2019 added in this encounter Care Teams Immigration Consultant Relationship Specialty Start Date End Date Clara Stanley PA [address] [place] [address] PCP - General Nurse Practitioner 04/05/19 Jasper Canchola MD [address] [place] [address] Surgeon Thoracic Surgery 05/11/19 Alexis Lopez MD [address] [facility] [address] [address] Storage Receipt Poster Pulmonary Disease 05/11/19 Kip Del Rio MD [address] [facility] [address] [place], [place] [id number] Medical Oncologist/Sap Bi Architect Hematology and Oncology 05/11/19 Jacob Flynn MD [address] [facility] [address] [place], [place] [address] Radiation Oncologist Radiation Oncology 05/25/19 documented as of this encounter
--- OUTSIDE RECORDS SUMMARY | 2024-03-02 04:23 | XMS_ITS | Encounter Summary ---
Author Organization [facility] Address [address] [facility] [address] [place] [address] Care Team Providers Care Power Plant Supervisor Name Role Phone Clara Stanley Primary Care Provider + Jasper Canchola MD Unavailable Alexis Lopez MD Unavailable [phone] Kip Del Rio MD Unavailable Jacob Flynn MD Unavailable Encounter Details Date Type Department Care Team (Late st Contact Info) Description 10/24/[address] [facility] Pulmonology [address] [facility] [address] [place] [address] Deb Marcum MA Social History Tobacco Use Types Packs/Day Years Used Date Smoking Tobacco: Never Smokeless Tobacco: Never Alcohol Use Standard Drinks/Week Comments Yes 2 (1 standard drink = 0.6 oz pur e alcohol) Sex and Gender Information Value Date Recorded Sex Assigned at Not on file Legal Sex Male 1:17 AM CRM ANALYST Gender Identity Not on file Sexual Orientation Straight 09/22/2019 8: 21 PM CDT documented as of this encounter Miscellaneous Notes * Telephone Encounter - Deb Marcum MA - 10/24/2019 12:08 PM CDT error documented in this encounter Plan of Treatment Not on file documented as of this encounter Visit Diagnoses Not on filedocumented in this encounter Care Teams Power Plant Supervisor Relationship Specialty Start Date End Date Clara Stanley PA [address] [place] [address] PCP - General Nurse Practitioner 04/05/19 Jasper Canchola MD [address] [place] [address] Surgeon Thoracic Surgery 05/11/19 Alexis Lopez MD [address] [address] Metal Container Maker Pulmonary Disease 05/11/19 Kip Del Rio MD [address] [facility] [address] [place] [address] Medical Oncologist/Ssrs Report Developer Hematology and Oncology 05/11/19 Jacob Flynn MD [address] [facility] [place] [address] Radiation Oncologist Radiation Oncology 05/25/19 documented as of this encounter
--- OUTSIDE RECORDS SUMMARY | 2024-03-02 04:23 | XMS_ITS | Encounter Summary ---
Author Organization [facility] Address [address] [place] [address] Care Team Providers Care Field Service Manager Name Role Phone Clara Stanley Primary Care Provider + Jasper Canchola MD Unavailable Alexis Lopez MD Unavailable Kip Del Rio MD Unavailable Jacob Flynn MD Unavailable Encounter Details Date Type Department Care Team (Late st Contact Info) Description 08/22/2019 4:45 PM CDT Lab [address] [address] Right lower lobe pulmonary nodule Social History Tobacco Use Types Packs/Day Years Used Date Smoking Tobacco: Never Smokeless Tobacco: Never Alcohol Use Standard Drinks/Week Comments Yes 2 (1 standard drink = 0.6 oz pur e alcohol) Sex and Gender Information Value Date Recorded Sex Assigned at Not on file Legal Sex Male 1:17 AM NUCLEAR CRITICALITY SAFETY ENGINEER Gender Identity Not on file Sexual [...] 08/22/2019 documented in this encounter Care Teams Field Service Manager Relationship Specialty Start Date End Date Clara Stanley PA [address] [place] [address] PCP - General Nurse Practitioner 04/05/19 Jasper Canchola MD [address] [place] [address] Surgeon Thoracic Surgery 05/11/19 Alexis Lopez MD [address] [address] Compound Worker Pulmonary Disease 05/11/19 Kip Del Rio MD [address] [facility] [address] [place] [address] Medical Oncologist/Medical Office Worker Hematology and Oncology 05/11/19 Jacob Flynn MD [address] [facility] [address] [place] [address] Radiation Oncologist Radiation Oncology 05/25/19 documented as of this encounter
--- OUTSIDE RECORDS SUMMARY | 2024-03-02 04:23 | XMS_ITS | Encounter Summary ---
Author Organization [facility] Address [address] [place] [address] Care Team Providers Care Credit Card Specialist Name Role Phone Clara Stanley Primary Care Provider + Jasper Canchola MD Unavailable Alexis Lopez MD Unavailable Kip Del Rio MD Unavailable Jacob Flynn MD Unavailable Encounter Details Date Type Department Care Team (Late st Contact Info) Description 08/10/2019 8:29 AM CDT Anesthesia Event [facility] Operating Room [address] [place] [address] Keaton Beck MD [address] [facility] [address] [place] [address] Laura Miguel, MASTER STEAM YACHT [address] [facility] [phone] [place] [address] Anesthesia Record Procedure Summary Procedure Name Responsible [...] Ne ck; 02/16/24 (Retired LDA, Removed/Completed by [facility] with LDA Utility); 1213 (Retired LDA, Removed/Completed by [facility] with LDA Utility) 05/19/19 0633 by Rickey Booker RN 02/16/24 1213 by Discharge Provider, Automatic RETIRED Surgical Site 05/26/19; 0916; Ri ght; Chest; 02/16/24 (Retired LDA, Removed/Completed by [facility] with LDA Utility); 1213 (Retired LDA, Removed/Completed by [facility] with LDA Utility) 05/26/19 0916 by [...] file Legal Sex Male 1:17 AM BUSINESS SYSTEMS ADVISOR Gender Identity Not on file Sexual Orientation Straight 09/22/2019 8: 21 PM CDT documented as of this encounter OR Notes * Anesthesia Postprocedure Evaluation - Keaton Beck MD - 08/16/2019 5:17 PM CDT Patient: Kwaku Kulkarni Procedure Summary Date: 08/10/19 Room / Location: [facility] OR POD 3 ROOM 303 / [facility] OR POD 3 Anesthesia Start: 828 [...] and Planning Preoperative Evaluation Record Evaluation type/location: [facility] Planned procedure site: [facility] (Pods 2/3/5/HEAVY EQUIPMENT RENTAL ASSOCIATE) Date: 08/03/19 Anesthesia Evaluation NOTE: This note [...] to be performed on 08-08-2019 at the [facility]. . Blood bank needs for day of [...] mg documented in this encounter Care Teams Credit Card Specialist Relationship Specialty Start Date End Date Clara Stanley PA [address] [place] [address] PCP - General Nurse Practitioner 04/05/19 Jasper Canchola MD [address] [place] [address] Surgeon Thoracic Surgery 05/11/19 Alexis Lopez MD [address] [address] International Accounting Manager Pulmonary Disease 05/11/19 Kip Del Rio MD [address] [facility] [address] [place] [address] Medical Oncologist/Flavoring Maker Hematology and Oncology 05/11/19 Jacob Flynn MD [address] [facility] [address] [place] [address] Radiation Oncologist Radiation Oncology 05/25/19 documented as of this encounter
--- OUTSIDE RECORDS SUMMARY | 2024-03-02 04:23 | XMS_ITS | Encounter Summary ---
Author Organization [facility] Address [address] [place] [address] Care Team Providers Care Horse Doctor Name Role Phone Clara Stanley Primary Care Provider + Jasper Canchola MD Unavailable Alexis Lopez MD Unavailable Kip Del Rio MD Unavailable Jacob Flynn MD Unavailable Encounter Details Date Type Department Care Team (Latest Contact Info) Description 08/10/2019 6:46 AM CDT - 08/10/2019 10:30 AM CDT Hospital Encounter [facility] Operating Room [address] [place] [address] Jasper Canchola MD [address] [facility] [address] [place] [address] Discharge Disposition: Discharge to home or self care Social History Tobacco Use Types Packs/Day Years Used Date Smoking Tobacco: Never Smokeless Tobacco: Never Alcohol Use Standard Drinks/Week Comments Yes 2 (1 standard drink = 0.6 oz pur e alcohol) Sex and Gender Information Value Date Recorded Sex Assigned at Not on file Legal Sex Male 1:17 AM ASSEMBLER CAMPER Gender Identity Not on file Sexual Orientation [...] MALIGNANT NEOPLASM OF BRONCHUS AND LUNG Other ocean transportation intermediary (current) drug therapy - OTHER PILLOWCASE CLEANER (CURRENT) DRUG THERAPY documented in this encounter Discharge Instructions * Discharge Instructions* Shelby España RN - 08/10/2019 9:15 AM CDT Resume home medications. No changes to activity, diet or medications. Follow up with primary care and clinical nursing intern as planned. Do not drive, operate heavy machinery or make any important life or legal decisions for 24 hours. Advance diet slowly to avoid nausea/vomiting. May call Dr. Canchola's office with any questions/concerns: [phone] * Attachments The following attachments cannot be sent through Care Everywhere. * Flexible Bronchoscopy (Discharge Care) (Maltese) * [facility] PATHWAY TO EXCELLENT CARE AFTER SURGERY documented [...] Planning Preoperative Evaluation Record Evaluation type/location: CPAP [facility] Planned procedure site: [facility] [place] (Pods 2/3/5/HSE MANAGER) Date: 08/03/19 Anesthesia Evaluation NOTE: This note [...] to be performed on 08-08-2019 at the [facility]. . Blood bank needs for day [...] instructions were provided in writing sent via [employer] mail. Patient verbalized understanding of preoperative plan. [...] INCL FLUOR GDNCE DX W/CELL WASHG SPX [49201] (BRONCHOSCOPY) Center for Preoperative Assessment and Planning Preoperative Evaluation Record ?? Evaluation type/location: CPAP [facility] ?? Planned procedure site: [facility] (Pods 2/3/5/HSE MANAGER) ?? Date: 08/03/19 ?? Anesthesia Evaluation NOTE: [...] to be performed on 08-08-2019 at the [facility]. . Blood bank needs for day [...] instructions were provided in writing sent via [employer] mail. Patient verbalized understanding of preoperative plan. [...] . * Brief Op Note - Jorge Gonzlaes MD - 08/10/2019 8:30 AM CDT Operative Progress Note Surgical Team: Surgeon(s) and Role: * Jasper Canchola MD - Primary * Jorge Gonzales MD - Fellow Anesthesiologist: Keaton Beck MD Lay Out Carpenter: Cuauhtemoc Solis MD Director Of Alumni Relations: Rickey Booker RN Scrub: ST Froylan DATE [...] Diagnostic flexible bronchoscopy. Surgeon Jasper Canchola MD. Automobile Assembly Supervisor Jorge Gonzales. Anesthesia General. Clinical Note This [...] no complications noted. Job ID/VF Job ID: [id number] * Pre-Procedure Instructions - Laura Miguel, SUPERVISOR DRAPERY HANGING - 08/03/2019 4:35 PM CDT Center for Preoperative Assessment and Planning CPAP Clinic Location: [facility] The night before your surgery: * [...] Planning Perioperative Nursing Note Telephone Preoperative Evaluation ([facility]) - TELEPHONE ONLY, NO PHYSICAL EXAM Date: [...] Remaining: No SCREENINGS Pain Assessment: No/denies pain [place] Fall Risk Score (Retired): 15 Enzo index [...] Directive: Patient does not have advance directive Communication/Curing Oven Attendant Needs Communication Needs: Contacts, Glasses Assistive Devices/DME: Eyeglasses Discharge Planning Type of Residence: Private residence Living Arrangements: Spouse/significant other Support Systems: Spouse/significant other(public transit trolley driver: (esther)) Patient expects to be discharged to:: Private residence ADDITIONAL COMMENTS/ FOLLOW UP COVID test scheduled for 08[facility]07 at [facility] * Pre-Procedure Instructions - Zenobia Adams [...] insurance card, a photo ID (like a Front Services Agent's license) and a method of payment for [...] or department store or come by our [facility] CPAP clinic and we will give it [...] your physician. You may also contact the [facility] Dietitian, Ama Wellington, @ [phone]. ?? Increase energy needs: Your body uses [...] (meat, fish, eggs, milk, hard cheese, and Serbian yogurt). Plant sources (tofu, edamame, beans, nuts [...] Boost, Muscle Milk, Orgain-plant bases, [place]-plant bases, [place] Breakfast Essentials). ??? If your surgeon's office has not notified you of your surgery time by NOON THE DAY BEFORE your surgery, please call [phone] and ask for your surgeon's office. documented [...] mixed bacterial migue seen on Gram stain. [facility] Report Final Report: Growth indicates upper respiratory migue. [facility] Organism GROWTH INDICATES UPPER RESPIRATORY MIGUE. [facility] Bronchial washing (Bronchial) 08/10/2019 8:50 AM CDT 08/10/2019 12:10 PM CDT Narrative [facility] - 08/12/2019 9:15 AM CDT Tracheo-bronchial washing Testing performed by [facility] Microbiology Laboratory ([phone]) Specimens submitted from normally sterile body sites [...] MICROBIOLOGY - GENERA L ORDERABLES Final Result [facility] One [facility] [place] [address] * (ABNORMAL) Mycology (fungal) culture Bronchial washing Bronchial (08/10/2019 8:50 AM CDT) Report Final Report: Rare Yeast Stephanie pneumonia is very rare and requires a histopathological diagnosis. ??The recovery of these organisms in routine culture, in most cases, only represents overgrowth of the organism secondary to antimicrobial therapy. Please contact the microbiology laboratory at [phone] if identification or susceptibility testing is clinically indicated. (.) [facility] Organism YEAST [facility] Bronchial washing (Bronchial) 08/10/2019 8:50 AM CDT 08/10/2019 12:08 PM CDT Narrative [facility] - 09/07/2019 9:33 AM CDT Tracheo-bronchial washing Testing performed by [facility] Microbiology Laboratory ([phone]). us Jasper Canchola MD LAB MICROBIOLOGY - GENERA L ORDERABLES Final Result [facility] One [facility] Department [place] [address] documented in this encounter Visit Diagnoses Diagnosis [...] 07/15 documented in this encounter Care Teams Horse Doctor Relationship Specialty Start Date End Date Clara Stanley PA [address] [place] [address] PCP - General Nurse Practitioner 04/05/19 Jasper Canchola MD [facility] [place] [address] Surgeon Thoracic Surgery 05/11/19 Alexis Lopez MD [address] [place] [address] Qa Intern Pulmonary Disease 05/11/19 Kip Del Rio MD [address] [facility] [address] [place] [address] Medical Oncologist/Door Repairer Bus Hematology and Oncology 05/11/19 Jacob Flynn MD [address] [facility] [address] [place] [address] Radiation Oncologist Radiation Oncology 05/25/19 documented as of this encounter
--- OUTSIDE RECORDS SUMMARY | 2024-03-02 04:23 | XMS_ITS | Encounter Summary ---
Author Organization [facility] Address [address] [place] [address] Phone Care Team Providers Care Farm Planner Name Role Phone Clara Stanley Primary Care Provider + Jasper Canchola MD Unavailable Alexis Lopez MD Unavailable [phone] Kip Del Rio MD Unavailable Jacob Flynn MD Unavailable Encounter Details Date Type Department Care Team (Late st Contact Info) Description 03/12/2020 Orders Only [facility] Surgery [address] [facility] 8th [place] [address] [place] [id number] Stephanie Bautista, TJ [address] [facility] [address] [place] [address] Social History Tobacco Use Types Packs/Day Years Used Date Smoking Tobacco: Never Smokeless Tobacco: Never Alcohol Use Standard Drinks/Week Comments Yes 2 (1 standard drink = 0.6 oz pur e alcohol) Sex and Gender Information Value Date Recorded Sex Assigned at Not on file Legal Sex Male 1:17 AM REVIEW TRAINER Gender Identity Not on file Sexual Orientation Straight 09/22/2019 8: 21 PM CDT documented as of this encounter Plan of Treatment Not on file documented as of this encounter Visit Diagnoses Not on filedocumented in this encounter Care Teams Farm Planner Relationship Specialty Start Date End Date Clara Stanley PA [address] [place] [address] PCP - General Nurse Practitioner 04/05/19 Jasper Canchola MD [address] [place] [address] Surgeon Thoracic Surgery 05/11/19 Alexis Lopez MD [address] [facility] [address] [address] Cat Driver Pulmonary Disease 05/11/19 Kip Del Rio MD [address] [facility] [address] [place] [address] Medical Oncologist/Wetlands Technician Hematology and Oncology 05/11/19 Jacob Flynn MD [address] [facility] [address] [place] [address] Radiation Oncologist Radiation Oncology 05/25/19 documented as of this encounter
--- OUTSIDE RECORDS SUMMARY | 2024-03-02 04:23 | XMS_ITS | Encounter Summary ---
Author Organization [facility] Address [address] [facility] [address] [place] [address] Care Team Providers Care Concrete Pile Driver Operator Name Role Phone Clara Stanley Primary Care Provider + Jasper Canchola MD Unavailable Alexis Lopez MD Unavailable [phone] Kip Del Rio MD Unavailable Jacob Flynn MD Unavailable [phone] Reason for Visit * Reason Comments Follow-up Encounter Details Date Type Department Care Team (Late st Contact Info) Description 08/17/2019 11:15 AM CDT Office Visit [facility] Pulmonology [address] [facility] [address] [place] [phone] Alexis Lopez MD [address] [facility] [address] [place] [address] High grade neuroendocrine carcinoma (CMS/HCC) (Primary Dx); Cough, persistent Social History Tobacco Use Types Packs/Day Years Used Date Smoking Tobacco: Never Smokeless Tobacco: Never Alcohol Use Standard Drinks/Week Comments Yes 2 (1 standard drink = 0.6 oz pur e alcohol) Sex and Gender Information Value Date Recorded Sex Assigned at Not on file Legal Sex Male 1:17 AM BACKGROUND INVESTIGATOR Gender Identity Not on file Sexual [...] He did have a bronchoscopy performed at [facility] and there were no endobronchial lesions. Past [...] on phone: None Gets together: None Attends church service: None Active member of club or [...] with Flonase and Hui for now. The garment liner skin test is pending. I will check a methacholine challenge since he recently had normal PFTs. Orders: - Pulmonary Function Test -[facility]; Bronchial Provacation; Future Rendering Provider & Department: Alexis Lopez MD documented in this encounter Miscellaneous Notes * Assessment & Plan Note - Alexis Lopez MD - 08/17/2019 11:46 AM CDT Associated Problem(s): Cough, persistent The patient will continue with Flonase and Hui for now. The garment liner skin test is pending. I will check [...] 12/02/2019 added in this encounter Care Teams Concrete Pile Driver Operator Relationship Specialty Start Date End Date Clara Stanley PA [address] [place] [address] PCP - General Nurse Practitioner 04/05/19 Jasper Canchola MD [address] [place] [address] Surgeon Thoracic Surgery 05/11/19 Alexis Lopez MD [address] [address] Basic Sciences Dean Pulmonary Disease 05/11/19 Kip Del Rio MD [address] [facility] [address] [place] [address] Medical Oncologist/Pig Machine Crane Operator Hematology and Oncology 05/11/19 Jacob Flynn MD [address] [facility] [address] [place] [address] Radiation Oncologist Radiation Oncology 05/25/19 documented as of this encounter
--- OUTSIDE RECORDS SUMMARY | 2024-03-02 04:23 | XMS_ITS | Encounter Summary ---
Author Organization [facility] Address [address] [place] [address] Phone Care Team Providers Care School Coordinator Name Role Phone Clara Stanley Primary Care Provider + Jasper Canchola MD Unavailable Alexis Lopez MD Unavailable Kip Del Rio MD Unavailable Jacob Flynn MD Unavailable Encounter Details Date Type Department Care Team (Late st Contact Info) Description 05/31/2020 Telephone [facility] Oncology [address] [facility] 7th [place] [address] [place] [address] Yesica Montelongo CMA Social History Tobacco Use Types Packs/Day Years Used Date Smoking Tobacco: Never Smokeless Tobacco: Never Alcohol Use Standard Drinks/Week Comments Yes 2 (1 standard drink = 0.6 oz pur e alcohol) Sex and Gender Information Value Date Recorded Sex Assigned at Not on file Legal Sex Male 1:17 AM CAREER COUNSELOR Gender Identity Not on file Sexual Orientation Straight 09/22/2019 8: 21 PM CDT documented as of this encounter Miscellaneous Notes * Telephone Encounter - Yesica Montelongo CMA - 05/31/2020 3:42 PM CDT Nurse received a call from Dr. aMrtinez with [facility] regarding peer to peer for denied pathology procedure from 05/30/2019 and stated that we had 24 hours to call. She left a appeal # [id number]. I called and left two (2) messages as she stated that this was an urgent matter. I informed both the BROADBAND INSTALLER/RN. documented in this encounter Plan of Treatment Not on file documented as of this encounter Visit Diagnoses Not on filedocumented in this encounter Care Teams School Coordinator Relationship Specialty Start Date End Date Clara Stanley PA [address] [place] [address] PCP - General Nurse Practitioner 04/05/19 Jasper Canchola MD [address] [place] [address] Surgeon Thoracic Surgery 05/11/19 Alexis Lopez MD [address] [address] Brush Holder Inspector Pulmonary Disease 05/11/19 Kip Del Rio MD [address] [place] [address] Medical Oncologist/Special Education Paraeducator Hematology and Oncology 05/11/19 Jacob Flynn MD [address] [place] [address] Radiation Oncologist Radiation Oncology 05/25/19 documented as of this encounter
--- OUTSIDE RECORDS SUMMARY | 2024-03-02 04:23 | XMS_ITS | Encounter Summary ---
Author Organization [facility] Address [address] [place] [address] Care Team Providers Care Mold Clamper Name Role Phone Clara Stanley Primary Care Provider + Jasper Canchola MD Unavailable Alexis Lopez MD Unavailable [phone] Kip Del Rio MD Unavailable Jacob Flynn MD Unavailable Reason for Referral * Diagnostic Imaging (Routine) - Closed Specialty Diagnoses / Procedures Referred By Erik galdamez Referred To Contact Radiology Diagnoses Lung nodule Procedures CT Chest W Contrast Jasper Canchola MD Phone: tel: fax: [address] [address] Referral ID Status Reason Start Date Expiration Date Visits Re quested Visits Authorized [id number] Closed 09/13/2019 03/11/2020 1 1 Reason for Visit * Diagnostic Imaging (Routine) - Closed Specialty Diagnoses / Procedures Referred By Erik galdamez Referred To Contact Radiology Diagnoses Lung nodule Procedures CT Chest W Contrast Jasper Canchola MD Phone: tel: fax: [address] [address] Referral ID Status Reason Start Date Expiration Date Visits Re quested Visits Authorized [id number] Closed 09/13/2019 03/11/2020 1 1 Encounter Details Date Type Department Care Team (Latest Contact Info) Description 09/23/2019 8:12 AM CDT - 09/23/2019 11:59 PM CDT Hospital Encounter [facility] [address] [place] [address] Jasper Canchola MD [address] [facility] [address] [place] [address] Lung nodule Discharge Disposition: Discharge to home or self care Social History Tobacco Use Types Packs/Day Years Used Date Smoking Tobacco: Never Smokeless Tobacco: Never Alcohol Use Standard Drinks/Week Comments Yes 2 (1 standard drink = 0.6 oz pur e alcohol) Sex and Gender Information Value Date Recorded Sex Assigned at Not on file Legal Sex Male 1:17 AM TAX COLLECTION COORDINATOR Gender Identity Not on file Sexual [...] Creatinine POC 0.8 0.7 - 1.3 mg/dL [facility] Blood specimen (specimen) 09/23/2019 8:40 AM CDT 09/23/2019 8:40 AM CDT Jasper Canchola MD LAB POCT ORDERABLES - DEV ICE Final Result [facility] One [facility] Department [place] [address] documented in this encounter Visit Diagnoses Diagnosis [...] 09/23/2019 documented in this encounter Care Teams Mold Clamper Relationship Specialty Start Date End Date Clara Stanley PA [address] [place] [address] PCP - General Nurse Practitioner 04/05/19 Jasper Canchola MD [address] [place] [address] Surgeon Thoracic Surgery 05/11/19 Alexis Lopez MD [address] [facility] [address] [place] [address] Multimedia Specialist Pulmonary Disease 05/11/19 Kip Del Rio MD [address] [facility] [address] [place] [address] Medical Oncologist/Plant Maintenance Mechanic Hematology and Oncology 05/11/19 Jacob Flynn MD [address] [facility] [address] [place] [address] Radiation Oncologist Radiation Oncology 05/25/19 documented as of this encounter
--- OUTSIDE RECORDS SUMMARY | 2024-03-02 04:23 | XMS_ITS | Encounter Summary ---
Author Organization [facility] Address [address] [facility] [address] [place] [address] Care Team Providers Care Mathematics Professor Name Role Phone Clara Stanley Primary Care Provider + Jasper Canchola MD Unavailable Alexis Lopez MD Unavailable [phone] Kip Del Rio MD Unavailable Jacob Flynn MD Unavailable Reason for Visit * Reason Comments Follow-up Encounter Details Date Type Department Care Team (Late st Contact Info) Description 04/06/2020 9:30 AM LOW PRESSURE KETTLE OPERATOR Office Visit [facility] Pulmonology [address] [facility] [address] [place] [address] Shyla Shafer DYED RAW STOCK BLOWER FEEDER [address] [facility] [address] [place] [address] Malignant neoplasm of lower lobe of right [...] on file Legal Sex Male 1:17 AM LOW PRESSURE KETTLE OPERATOR Gender Identity Not on file Sexual Orientation Straight 09/22/2019 8: 21 PM CDT documented as of this encounter Last Filed Vital Signs Vital Sign Reading Time Taken Comments Blood Pressure 133/86 04/06/2020 9:23 AM LOW PRESSURE KETTLE OPERATOR Pulse 80 04/06/2020 9:23 AM LOW PRESSURE KETTLE OPERATOR Temperature 37.1 ??C (98.8 ??F) 04/06/2020 9:23 AM CS T Respiratory Rate - - Oxygen Saturation 99% 04/06/2020 9:23 AM LOW PRESSURE KETTLE OPERATOR Inhaled Oxygen Concentration - - Weight 155.6 kg (343 lb) 04/06/2020 9:23 AM LOW PRESSURE KETTLE OPERATOR Height - - Body Mass Index 42.87 03/28/2020 3:20 PM LOW PRESSURE KETTLE OPERATOR documented in this encounter Progress Notes * Shyla Shafer, DYED RAW STOCK BLOWER FEEDER - 04/06/2020 9:30 AM CST Images from [...] on phone: None Gets together: None Attends confucianism service: None Active member of club or [...] The patient denied need for supplies. The [employer] company is [employer]. The patient is benefitting from CPAP therapy. Rendering Provider & Department: Shyla Shafer NP Cosigned by Alexis Lopez MD at 04/06/2020 11:42 AM LOW PRESSURE KETTLE OPERATOR PRESSURE KETTLE OPERATOR PRESSURE KETTLE OPERATOR documented in this encounter Miscellaneous Notes * Assessment & Plan Note - Shyla Shafer NP - 04/06/2020 9:51 AM LOW PRESSURE KETTLE OPERATOR Associated Problem(s): Mild intermittent asthma without complication [...] The patient also will continue with Flonase. PRESSURE KETTLE OPERATOR * Assessment & Plan Note - hSyla Shafer NP - 04/06/2020 9:50 AM LOW PRESSURE KETTLE OPERATOR Associated Problem(s): LEONOR (obstructive sleep apnea) The [...] The patient denied need for supplies. The [employer] company is [employer]. The patient is benefitting from CPAP therapy. PRESSURE KETTLE OPERATOR * Assessment & Plan Note - Shyla Shafer NP - 04/06/2020 9:49 AM LOW PRESSURE KETTLE OPERATOR Associated Problem(s): Malignant neoplasm of lower lobe of right lung (HCC) (Deleted) The patient will continue to see Dr. Canchola received bi- yearly CT scans. The CT scan for September of 2020 has been ordered. PRESSURE KETTLE OPERATOR documented in this encounter Plan of [...] documented as of this encounter Care Teams Mathematics Professor Relationship Specialty Start Date End Date Clara Stanley PA [address] [place] [address] PCP - General Nurse Practitioner 04/05/19 Jasper Canchola MD [address] [place] [address] Surgeon Thoracic Surgery 05/11/19 Alexis Lopez MD [address] [facility] [place] [address] Client Services Assistant Pulmonary Disease 05/11/19 Kip Del Rio MD [address] [facility] [address] [place] [address] Medical Oncologist/Naval Engineer Hematology and Oncology 05/11/19 Jacob Flynn MD [address] [facility] [address] [place] [address] Radiation Oncologist Radiation Oncology 05/25/19 documented as of this encounter
--- OUTSIDE RECORDS SUMMARY | 2024-03-02 04:23 | XMS_ITS | Encounter Summary ---
Author Organization [facility] Address [address] [place] [address] Phone Care Team Providers Care Passport Support Associate Name Role Phone Clara Stanley Primary Care Provider + Jasper Canchola MD Unavailable Alexis Lopez MD Unavailable [phone] Kip Del Rio MD Unavailable Jacob Flynn MD Unavailable Encounter Details Date Type Department Care Team (Late st Contact Info) Description 05/31/2020 Telephone [facility] Oncology [address] [facility] 7th [place] [address] [place] [address] Imelda De Leon RN Social History Tobacco Use Types Packs/Day Years Used Date Smoking Tobacco: Never Smokeless Tobacco: Never Alcohol Use Standard Drinks/Week Comments Yes 2 (1 standard drink = 0.6 oz pur e alcohol) Sex and Gender Information Value Date Recorded Sex Assigned at Not on file Legal Sex Male 1:17 AM INFORMATICS MANAGER Gender Identity Not on file Sexual Orientation Straight 09/22/2019 8: 21 PM CDT documented as of this encounter Miscellaneous Notes * Telephone Encounter - Imelda Simpson RN - 05/31/2020 4:41 PM CDT I received a message from Delia at [facility] stating that a pathology procedure (CPT [id number]) from 10/20/2019 was non certified and would be denied unless Dr. Del Rio did a peer to peer with [facility] MD- Dr. Martinez at [phone] in the next 24 hours. The appeal # is [id number]. Our office attempted to reach Dr. Martinez on 2 occasions and left 2 messages requesting a call back. documented in this encounter Plan of Treatment Not on file documented as of this encounter Visit Diagnoses Not on filedocumented in this encounter Care Teams Passport Support Associate Relationship Specialty Start Date End Date Clara Stanley PA [address] [place] [address] PCP - General Nurse Practitioner 04/05/19 Jasper Canchola MD [address] [place] [address] Surgeon Thoracic Surgery 05/11/19 Alexis Lopez MD [address] [address] Credit Administration Specialist Pulmonary Disease 05/11/19 Kip Del Rio MD [address] [facility] [address] [place], [place] [id number] Medical Oncologist/Furnace Brazer Hematology and Oncology 05/11/19 [place] [address] [place] [address] # [address] [place] [address] Radiation Oncologist Radiation Oncology 05/25/19 documented as of this encounter
--- OUTSIDE RECORDS SUMMARY | 2024-03-02 04:23 | XMS_ITS | Encounter Summary ---
Author Organization [facility] Address [address] [facility] [address] [place] [address] Care Team Providers Care Supervisor Boatbuilders Wood Name Role Phone Clara Stanley Primary Care Provider + Jasper Canchola MD Unavailable Alexis Lopez MD Unavailable Kip Del Rio MD Unavailable Jacob Flynn MD Unavailable Encounter Details Date Type Department Care Team (Late st Contact Info) Description 08/17/2019 Orders Only [facility] Pulmonology [address] [facility] [address] [place] [phone] Yolanda Segal, KAMILA Right lower lobe pulmonary nodule (Primary Dx) Social History Tobacco Use Types Packs/Day Years Used Date Smoking Tobacco: Never Smokeless Tobacco: Never Alcohol Use Standard Drinks/Week Comments Yes 2 (1 standard drink = 0.6 oz pur e alcohol) Sex and Gender Information Value Date Recorded Sex Assigned at Not on file 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 Faxed to [phone]. documented in this encounter Miscellaneous Notes * [...] Primary documented in this encounter Care Teams Supervisor [employer]builders Wood Relationship Specialty Start Date End Date Clara Stanley PA [address] [place] [address] PCP - General Nurse Practitioner 04/05/19 Jasper Canchola MD [address] [place] [address] Surgeon Thoracic Surgery 05/11/19 Alexis Lopez MD [address] [address] Granulizing Machine Operator Pulmonary Disease 05/11/19 Kip Del Rio MD [address] [place] [address] Medical Oncologist/Automotive Fuel Injection Servicer Hematology and Oncology 05/11/19 Jacob Flynn MD [address] [place] [address] Radiation Oncologist Radiation Oncology 05/25/19 documented as of this encounter
--- OUTSIDE RECORDS SUMMARY | 2024-03-02 04:23 | XMS_ITS | Encounter Summary ---
Author Organization [facility] Address [address] [place] [address] Phone Care Team Providers Care Animal Trapper Name Role Phone Clara Stanley Primary Care Provider + Jasper Canchola MD Unavailable [phone] Alexis Lopez MD Unavailable [phone] Kip Del Rio MD Unavailable Jacob Flynn MD Unavailable Reason for Referral * Diagnostic Imaging (Routine) - Closed Specialty Diagnoses / Procedures Referred By Contac t Referred To Contact Radiology Diagnoses History of lung cancer Procedures CT Chest W Contrast Stephanie Bautista NP Phone: tel: fax: [address] [address] Referral ID Status Reason Start Date Expiration Date Visits Re quested Visits Authorized [id number] Closed 08/20/2020 11/18/2020 1 1 OF ADMISSIONS Reason for Visit * Consultation (Routine) - Closed Specialty Diagnoses / Procedures Referred By Contac t Referred To Contact Cardiothoracic Surgery Diagnoses Lung nodule Clara Stanley PA [facility] [place] [address] Phone: tel: fax: Jasper Canchola MD [address] [facility] [id number] [place] [address] Phone: tel: fax: Referral ID Status Reason Start Date Expiration Date V isits Requested Visits Authorized [id number] Closed Specialty Services Required 03/12/2020 04/11/2021 99 99 Encounter Details Date Type Department Care Team (Late st Contact Info) Description 03/28/2020 3:45 PM DEAN OF ADMISSIONS Office Visit [facility] [address] [facility] Medicine 8th [place] [address] [place] [phone] Jasper Canchola MD [address] [facility] [id number] [place] [address] History of lung cancer (Primary Dx); Lung nodule Social History Tobacco Use Types Packs/Day Years Used Date Smoking Tobacco: Never Smokeless Tobacco: Never Alcohol Use Standard Drinks/Week Comments Yes 2 (1 standard drink = 0.6 oz pur e alcohol) Sex and Gender Information Value Date Recorded Sex Assigned at Not on file Legal Sex Male 1:17 AM DEAN OF ADMISSIONS Gender Identity Not on file Sexual Orientation Straight 09/22/2019 8: 21 PM CDT documented as of this encounter Last Filed Vital Signs Vital Sign Reading Time Taken Comments Blood Pressure 136/86 03/28/2020 3:20 PM DEAN OF ADMISSIONS Pulse 77 03/28/2020 3:20 PM DEAN OF ADMISSIONS Temperature 36.6 ??C (97.8 ??F) 03/28/2020 3:20 PM CS T Respiratory Rate 20 03/28/2020 3:20 PM DEAN OF ADMISSIONS Oxygen Saturation 98% 03/28/2020 3:20 PM DEAN OF ADMISSIONS Inhaled Oxygen Concentration - - Weight 154 kg (339 lb 6.4 oz) 03/28/2020 3:20 PM DEAN OF ADMISSIONS Height 190.5 cm (6' 3 ) 03/28/2020 3:20 PM DEAN OF ADMISSIONS Body Mass Index 42.42 03/28/2020 3:20 PM DEAN OF ADMISSIONS documented in this encounter Progress Notes * Jasper Canchola MD - 03/28/2020 3:[address] [facility] Thoracic Surgery Note 03/29/2020 KALPANA Lema Kwaku [...] Thank you very much. Yours sincerely, Sary Cacnhola MD Insurance Case Manager completed by using [employer] Direct speaking software, therefore, transcriptionvariances may occur. OF ADMISSIONS documented in this encounter Plan of Treatment [...] Orders Outpatient Referral Count Last Ordered Date [facility] st Ordered Date AMB REFERRAL TO CARDIOTHORACIC SURGERY 1 documented in this encounter Care Teams Animal Trapper Relationship Specialty Start Date End Date Clara Stanley PA [address] [place] [address] PCP - General Nurse Practitioner 04/05/19 Jasper Canchola MD [address] [place] [address] Surgeon Thoracic Surgery 05/11/19 Alexis Lopez MD [address] [facility] [address] [place] [address] [place] [address] Collateral Analyst Pulmonary Disease 05/11/19 Kip Del Rio MD [address] [facility] [address] [place] [address] Medical Oncologist/Endocrinology Nurse Hematology and Oncology 05/11/19 Jacob Flynn MD [address] [facility] # [address] [place] [address] Radiation Oncologist Radiation Oncology 05/25/19 documented as of this encounter
--- OUTSIDE RECORDS SUMMARY | 2024-03-02 04:23 | XMS_ITS | Encounter Summary ---
Author Organization [facility] Address [address] [place] [address] Care Team Providers Care Manager Of Internal Name Role Phone Clara Stanley Primary Care Provider + Jasper Canchola MD Unavailable Alexis Lopez MD Unavailable Kip Del Rio MD Unavailable Jacob Flynn MD Unavailable Encounter Details Date Type Department Care Team (Late st Contact Info) Description 08/22/2019 12:42 PM CDT Hospital Encounter [facility] INTERIM Alexis Lopez MD [address] [facility] [address] [address] Social History Tobacco Use Types Packs/Day Years Used Date Smoking Tobacco: Never Smokeless Tobacco: Never Alcohol Use Standard Drinks/Week Comments Yes 2 (1 standard drink = 0.6 oz pur e alcohol) Sex and Gender Information Value Date Recorded Sex Assigned at Not on file 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 Coronavirus (COVID-19) Interp SEE COMMENT [facility] Coronavirus (COVID-19) Results called to TNP [facility] Misc Performing Lab [facility] 08/22/2019 12:4 3 PM CDT 08/23/2019 12:17 AM CDT Narrative Resulting Agency Comment CLI Alexis Lopez MD LAB MICROBIOLOGY - GENERA L ORDERABLES Final Result [facility] [address] [place] [address], [facility] [phone] documented in this encounter Visit Diagnoses Not on filedocumented in this encounter Care Teams Manager Of Internal Relationship Specialty Start Date End Date Clara Stanley PA [address] [place] [address] PCP - General Nurse Practitioner 04/05/19 Jasper Canchola MD [address] [place] [address] Surgeon Thoracic Surgery 05/11/19 Alexis Lopez MD [address] [address] Day Camp Unit Leader Pulmonary Disease 05/11/19 Kip Del Rio MD [address] [facility] [address] [place], [place] [id number] Medical Oncologist/Butter Liquefier Hematology and Oncology 05/11/19 Jacob Flynn MD [address] [facility] [address] [place] [address] Radiation Oncologist Radiation Oncology 05/25/19 documented as of this encounter
--- OUTSIDE RECORDS SUMMARY | 2024-03-02 04:23 | XMS_ITS | Encounter Summary ---
Author Organization [facility] Address [address] [place] [address] Phone Care Team Providers Care Bobbin Loose End Finder Name Role Phone Clara Stanley Primary Care Provider + Jasper Canchola MD Unavailable Alexis Lopez MD Unavailable Kip Del Rio MD Unavailable Jacob Flynn MD Unavailable Encounter Details Date Type Department Care Team (Late st Contact Info) Description 02/07/2020 Telephone [facility] Oncology [address] 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 I was not able to get a hold of the patient but spoke with the who signed and returned to me and I faxed it to [employer] fax# [phone] R PASTE MIXER documented in this encounter Plan of Treatment Not on file documented as of this encounter Visit Diagnoses Not on filedocumented in this encounter Care Teams Bobbin Loose End Finder Relationship Specialty Start Date End Date Clara Stanley PA [address] [place] [address] PCP - General Nurse Practitioner 04/05/19 Jasper Canchola MD [address] [place] [address] Surgeon Thoracic Surgery 05/11/19 Alexis Lopez MD [address] [address] Keg Filler Pulmonary Disease 05/11/19 Kip Del Rio MD [address] [facility] [address] [place] [address] Medical Oncologist/Rehabilitation Case Coordinator Hematology and Oncology 05/11/19 Jacob Flynn MD [address] [facility] [address] [place] [address] Radiation Oncologist Radiation Oncology 05/25/19 documented as of this encounter
--- OUTSIDE RECORDS SUMMARY | 2024-03-02 04:23 | XMS_ITS | Encounter Summary ---
Author Organization [facility] Address [address] [place] [address] Care Team Providers Care Networking Specialist Name Role Phone Clara Stanley Primary Care Provider + Jasper Canchola MD Unavailable Alexis Lopez MD Unavailable Kip Del Rio MD Unavailable Jacob Flynn MD Unavailable [phone] Encounter Details Date Type Department Care Team (Late [facility]) Description 03/28/[address] 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 Gender Identity Not on file Sexual Orientation Straight 09/22/2019 8: 21 PM CDT documented as of this encounter Plan of Treatment Not on file documented as of this encounter Visit Diagnoses Not on filedocumented in this encounter Care Teams Networking Specialist Relationship Specialty Start Date End Date Clara Stanley PA [address] [place] [address] PCP - General Nurse Practitioner 04/05/19 Jasper Canchola MD [address] [place] [address] Surgeon Thoracic Surgery 05/11/19 Alexis Lopez MD [address] [address] Research Phlebotomist Pulmonary Disease 05/11/19 Kip Del Rio MD [address] [facility] [address] [place] [address] Medical Oncologist/Laundry Routeman Hematology and Oncology 05/11/19 Jacob Flynn MD [address] [facility] [address] [place] [address] Radiation Oncologist Radiation Oncology 05/25/19 documented as of this encounter
--- OUTSIDE RECORDS SUMMARY | 2024-03-02 04:24 | XMS_ITS | Encounter Summary ---
Author Organization [facility] Address [address] [place] [address] Care Team Providers Care Plastic Welding Machine Operator Name Role Phone Clara Stanley Primary Care Provider + Jasper Canchola MD Unavailable Alexis Lopez MD Unavailable Kip Del Rio MD Unavailable Jacob Flynn MD Unavailable Encounter Details Date Type Department Care Team (Late st Contact Info) Description 05/30/2019 10:40 AM CDT - 05/30/2019 11:30 AM CDT Surgery [facility] Operating Room [address] [place] [address] Jasper Canchola MD [id number] [place] [address] BRONCHOSCOPY FLEXIBLE Surgery Details Date/Time Status Location OR Service Patient Class Case Class Case Type Trauma Case? 05/30/2019 10:40 AM Posted [facility] OR POD 3 304 Cardiothoracic Inpatient Elective Panel 1 Procedure LRB Anes Op Region Wound Class Comments BRONCHOSCOPY FLEXIBLE N/A General Bronchus Class II - Clean Contaminated Surgeon Surgeon Role Service Panel Jasper Canchola MD Primary Cardiothoracic 1 Irina Hall MD PhD Resident - Observing 1 Amy Chun MD Resident - Assisting [facility] Surgery 1 documented in this encounter Social History Tobacco Use Types Packs/Day Years Used Date Smoking Tobacco: Never Smokeless Tobacco: Never Alcohol Use Standard Drinks/Week Comments Yes 0 (1 standard drink = 0.6 oz pur e alcohol) social Sex and Gender Information Value Date Recorded Sex Assigned at Not on file Legal Sex Male 1:17 AM TRACTOR OPERATOR BATTERY Gender Identity Not on file Sexual Orientation [...] of your care. Future Appointments Date Time [facility] Department [place] 06/17/2019 9:00 AM Jasper Canchola MD THOR [...] [place]- Acute Pain Service Department of Anesthesiology [facility], [facility] 05/30/2019 12:17 PM * John [...] injury. Diet: ADAT Pain control: Epidural, D/c'd CANDY FEEDER. POPM IS Bowel reg DVT prophylaxis CT to WS D/c'd beach, voiding D/c'd A-line, d/c'd OU status Bronchoscopy today John Fernando Cosigned by Jasper Canchola MD at 05/30/2019 12:21 PM CDT * Mp uTrner MD - 05/29/2019 9:51 AM CDT Pain [...] effusion. Stable heart size. Dictated by: Raza Kyae M.D. The radiology attending physician has personally [...] injury. Diet: ADAT Pain control: Epidural, D/c'd CANDY FEEDER. POPM D/c IVF IS Bowel reg DVT [...] control currently with epidural @10ml/hr and HM CANDY FEEDER. Patient plans to get up andwalk this afternoon. Patient has received 9.8mg of HM through CANDY FEEDER in last 24 hours. Objective: Temp: [36.4 [...] management - primary team planning on discontinuing CANDY FEEDER and switching to oral medications today Epidural [...] injury. Diet: ADAT Pain control: Epidural, D/c CANDY FEEDER. POPM IVF: LR at 75 IS Bowel reg DVT prophylaxis CT to WS D/c'd beach, voiding D/c'd A-line, d/c'd OU status John Fernando Cosigned by Jasper Cacnhola MD at 05/29/2019 11:58 AM CDT * Shelby Tyson RN - 05/27/2019 1:59 PM CDT 05/27/19 [id number] Information Information Obtained From Patient Prior to Admission Primary Caregiver Self Support System Spouse/Significant Other Support system contact info (name, phone, availablity) -Faith Kulkarni [phone] Durable Medical Equipment None Living Arrangements Spouse/significant other Type of Residence Private residence Steps in home? 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 Admit Source: home Problem/Goal: Patient awaits further evaluation for medical discharge needs and home needs. CM willassist patient with home needs as indicated and identified for safe discharge planning. Transportation: Cecilia Cuevas [phone] Through the course of our work I [...] Adult Diet Regular Diet effective now Question: ([facility]) Diet type Answer: Regular 05/27/19 0736 Assessment /Plan Impression: Tolerating oral diet; no N/V, NAD [] Pain is well controlled [x] Pain is moderately controlled [] Pain is poorly controlled Plan: [x] Continue multi-modal pain medication regimen as ordered. [x] Encourage pulmonary toilet [x] Continue bowel regimen. Epidural Local Anesthetic Infusion: [x] Increase to 10 ml/hr IV CANDY FEEDER demand amount: [x] No Change Thank You [...] Irwin- Acute Pain Service Department of Anesthesiology [facility], [facility] 05/27/2019 12:55 PM * [...] intermedius injury. Diet: ADAT Pain control: Epidural, CANDY FEEDER. Increase epidural rate. IVF: LR at 75 [...] injury. Diet: CLD, ADAT Pain control: Epidural, CANDY FEEDER, Toradol IVF: LR at 75 IS Ancef [...] Ishan Pitts MD - 2019 1:16 PM TRACTOR OPERATOR BATTERY Images from the original note were not included. [facility] for Preoperative Assessment and Planning Preoperative Evaluation Record Evaluation type/location: [facility] Planned procedure site: [facility] (Pods 2/3/5/PROGRAM SPECIALIST) Date: 05/13/19 Anesthesia Evaluation Mp Kulkarni is [...] and grade I/ Negative for peripheral edema ([place] [facility]) Pulmonary Exam: LCTA, bilat EENT Exam: [...] and agree to proceed. All questions answered. TOR OPERATOR BATTERY TOR OPERATOR BATTERY TOR OPERATOR BATTERY documented in this encounter Procedure Notes * [...] removed in 7-10 days by any MD, INSULATION INSPECTOR, brush holder inspector. Myrtle Haji MD documented in this encounter [...] Resident - Observing Anesthesiologist: Sam Castro MD P[address] PATROL: Tirso Turner CRNA Supervisor Carding: Matti Chau RN Scrub: Rik Fernandez RN Supervisor Carding Second: Rickey Booker RN DATE OF SURGERY [...] Diagnostic flexible bronchoscopy. Surgeon Jasper Canchola MD Brewery Pumper Amy Chun MD Anesthesia General. Clinical Note [...] no complications noted. Job ID/VF Job ID: [id number] * Plan of Care - Axel Aguirre [...] Ambulation; Transition to PO pain meds; Stop CANDY FEEDER Problem: Health Behavior: Goal: Understanding of discharge [...] rest; c/o some pain with coughing. IS [id number]. Administered Acapella/PEP therapy; patient capable of self [...] A-line Feel free to contact me at [phone] with further inquiries' * Assessment & Plan [...] injury. Diet: ADAT Pain control: Epidural, D/c'd CANDY FEEDER. POPM IS Bowel reg DVT prophylaxis CT [...] Chun MD - Resident - Assisting Anesthesiologist: Tja Perkins MD Supervisor Carding: Rickey Booker RN; Deniz Livingston RN; Ruy [...] plus modifier 22. Surgeon Jasper Canchola MD Brewery Pumper Amy Chun MD, MPHS Anesthesia General. Clinical [...] entire operative procedure. Job ID/VF Job ID: [id number] documented in this encounter Plan of Treatment [...] CDT) Sodium 129(L) 135 - 145 mmol/L [facility] Potassium, pl 3.6 3.3 - 4.9 mmol/L [facility] Chloride 98 97 - 110 mmol/L [facility] CO2 23 22 - 32 mmol/L [facility] Anion gap 8 2 - 15 mmol/L [facility] BUN 10 8 - 25 mg/dL [facility] Creatinine 0.70(L) 0.80 - 1.30 mg/dL [facility] Glucose 118 70 - 199 mg/dL [facility] Comment: Interpretive Data Fasting glucose >/= [...] 2017. Calcium 9.0 8.5 - 10.3 mg/dL [facility] Blood specimen (specimen) 05/30/2019 1:12 AM CDT 05/30/2019 1:25 AM CDT Jasper Canchola MD LAB BLOOD ORDERABLES Marianne conde Result [facility] One [facility] Department [place] [address] * XR Chest 1 View (05/29/2019 10:19 [...] CBC without differential (05/28/2019 10:57 PM CDT) [facility] WBC 20.6(H) 3.8 - 9.9 K/cumm [facility] Hgb 10.2(L) 13.0 - 17.5 g/dL [facility] Hct 30.6(L) 38.9 - 50.3 % [facility] Plt 288 150 - 400 K/cumm [facility] MPV 12.1 9.1 - 12.3 fL [facility] RBC 3.61(L) 4.30 - 5.80 M/cumm [facility] MCV 84.8 81.3 - 96.4 fL [facility] MCH 28.3 27.1 - 33.3 pg [facility] MCHC 33.3 32.3 - 35.7 g/dL [facility] RDW CV 13.9 11.1 - 14.9 % [facility] RDW SD 43.4 35.7 - 48.1 fL [facility] NRBC abs 0.00 0.00 - 0.01 K/cumm [facility] Blood specimen (specimen) 05/28/2019 10:57 PM CDT 05/28/2019 11:22 PM CDT Estrellita Reyes NP LAB BLOOD ORDERABLES Final Result [facility] One [facility] Department [place] [address] * (ABNORMAL) Basic metabolic panel (05/28/2019 10:57 PM CDT) Sodium 131(L) 135 - 145 mmol/L [facility] Potassium, pl 3.8 3.3 - 4.9 mmol/L [facility] Chloride 100 97 - 110 mmol/L [facility] CO2 23 22 - 32 mmol/L [facility] Anion gap 8 2 - 15 mmol/L [facility] BUN 16 8 - 25 mg/dL [facility] Creatinine 0.77(L) 0.80 - 1.30 mg/dL [facility] Glucose 125 70 - 199 mg/dL [facility] Comment: Interpretive Data Fasting glucose >/= [...] 2017. Calcium 8.9 8.5 - 10.3 mg/dL [facility] Blood specimen (specimen) 05/28/2019 10:57 PM CDT 05/28/2019 11:23 PM CDT Estrellita Reyes NP LAB BLOOD ORDERABLES Final Result [facility] One [facility] Department [place] [address] * XR Chest 1 View (05/28/2019 5:27 [...] Sodium 127(L) 135 - 145 mmol/L [facility] Comment:Repeated and Verifie d Potassium, pl 3.7 3.3 - 4.9 mmol/L [facility] Chloride 95(L) 97 - 110 mmol/L [facility] Comment:Repeated and Verifie d CO2 25 22 - 32 mmol/L [facility] Anion gap 7 2 - 15 mmol/L [facility] BUN 20 8 - 25 mg/dL [facility] Creatinine 1.35(H) 0.80 - 1.30 mg/dL [facility] Comment:Repeated and Verifie d Glucose 123 70 - 199 mg/dL [facility] Comment: Interpretive Data Fasting glucose >/= [...] 2017. Calcium 8.9 8.5 - 10.3 mg/dL [facility] Blood specimen (specimen) 05/27/2019 9:53 PM CDT 05/27/2019 10:02 PM CDT us Myrtle Haji MD LAB BLOOD ORDERABLES Final Resul t [facility] One [facility] Department [place] [address] * (ABNORMAL) CBC without differential (05/27/2019 9:53 PM CDT) WBC 26.1(H) 3.8 - 9.9 K/cumm [facility] Hgb 11.0(L) 13.0 - 17.5 g/dL [facility] Hct 34.4(L) 38.9 - 50.3 % [facility] Plt 301 150 - 400 K/cumm [facility] MPV 11.5 9.1 - 12.3 fL [facility] RBC 3.88(L) 4.30 - 5.80 M/cumm [facility] MCV 88.7 81.3 - 96.4 fL [facility] MCH 28.4 27.1 - 33.3 pg [facility] MCHC 32.0(L) 32.3 - 35.7 g/dL [facility] RDW CV 14.4 11.1 - 14.9 % [facility] RDW SD 46.1 35.7 - 48.1 fL [facility] NRBC abs 0.00 0.00 - 0.01 K/cumm [facility] Blood specimen (specimen) 05/27/2019 9:53 PM CDT 05/27/2019 10:02 PM CDT us Myrtle Haji MD LAB BLOOD ORDERABLES Final Resul t [facility] One [facility] Department [place] [address] * (ABNORMAL) Basic metabolic panel (05/26/2019 11:15 PM CDT) Sodium 136 135 - 145 mmol/L [facility] Potassium, pl 4.0 3.3 - 4.9 mmol/L [facility] Chloride 106 97 - 110 mmol/L [facility] CO2 23 22 - 32 mmol/L [facility] Anion gap 7 2 - 15 mmol/L [facility] BUN 11 8 - 25 mg/dL [facility] Creatinine 0.66(L) 0.80 - 1.30 mg/dL [facility] Glucose 166 70 - 199 mg/dL [facility] Comment: Interpretive Data Fasting glucose >/= [...] 2017. Calcium 9.0 8.5 - 10.3 mg/dL [facility] Blood specimen (specimen) 05/26/2019 11:15 PM CDT 05/26/2019 11:49 PM CDT Jasper Canchola MD LAB BLOOD ORDERABLES Marianne l Result Performing Organization Address [facility] Co de Phone Number [facility] [place] [address] * (ABNORMAL) CBC without differential (05/26/2019 11:15 PM CDT) WBC 24.3(H) 3.8 - 9.9 K/cumm [facility] Hgb 11.6(L) 13.0 - 17.5 g/dL [facility] Hct 35.9(L) 38.9 - 50.3 % [facility] Plt 291 150 - 400 K/cumm [facility] MPV 11.7 9.1 - 12.3 fL [facility] RBC 4.16(L) 4.30 - 5.80 M/cumm [facility] MCV 86.3 81.3 - 96.4 fL [facility] MCH 27.9 27.1 - 33.3 pg [facility] MCHC 32.3 32.3 - 35.7 g/dL [facility] RDW CV 13.8 11.1 - 14.9 % [facility] RDW SD 43.8 35.7 - 48.1 fL [facility] NRBC abs 0.00 0.00 - 0.01 K/cumm [facility] Blood specimen (specimen) 05/26/2019 11:15 PM CDT 05/26/2019 11:49 PM CDT Jasper Canchola MD LAB BLOOD ORDERABLES Marianne l Result Performing Organization Address [facility] Co de Phone Number [facility] [place] [address] * (ABNORMAL) Blood gas, arterial (05/26/2019 11:14 PM CDT) pH, Art 7.32(L) 7.35 - 7.45 [facility] PCO2, Arterial 41 35 - 45 mmHg [facility] PO2, Arterial 77(L) 83 - 108 mmHg [facility] HCO3 Art (Calculated) 22 20 - 30 mmol/L [facility] BE, art -5 mmol/L [facility] Comment: Interpretive Data No Reference Range Established Current Interpretive Data was last revised on 2017 O2 Sat Art (Measured) 95 90 - 95 % [facility] Blood specimen (specimen) 05/26/2019 11:14 PM CDT 05/26/2019 11:23 PM CDT Jasper Canchola MD LAB BLOOD ORDERABLES Marianne l Result [facility] One [facility] Department [place] [address] * (ABNORMAL) Basic metabolic panel (05/26/2019 7:49 PM CDT) Pathologist [facility] Sodium 139 135 - 145 mmol/L [facility] Potassium, pl 3.8 3.3 - 4.9 mmol/L [facility] Chloride 110 97 - 110 mmol/L [facility] CO2 21(L) 22 - 32 mmol/L [facility] Anion gap 8 2 - 15 mmol/L [facility] BUN 11 8 - 25 mg/dL [facility] Creatinine 0.68(L) 0.80 - 1.30 mg/dL [facility] Glucose 155 70 - 199 mg/dL [facility] Comment: Interpretive Data Fasting glucose >/= [...] 2017. Calcium 9.1 8.5 - 10.3 mg/dL [facility] Blood specimen (specimen) 05/26/2019 7:49 PM CDT 05/26/2019 8:13 PM CDT Jasper Canchola MD LAB BLOOD ORDERABLES Marianne l Result Performing Organization Address [facility] de Phone Number [facility] Department [place] [address] * (ABNORMAL) CBC without differential (05/26/2019 7:49 PM CDT) WBC 25.0(H) 3.8 - 9.9 K/cumm [facility] Hgb 12.0(L) 13.0 - 17.5 g/dL [facility] Hct 37.1(L) 38.9 - 50.3 % [facility] Plt 288 150 - 400 K/cumm [facility] MPV 11.6 9.1 - 12.3 fL [facility] RBC 4.24(L) 4.30 - 5.80 M/cumm [facility] MCV 87.5 81.3 - 96.4 fL [facility] MCH 28.3 27.1 - 33.3 pg [facility] MCHC 32.3 32.3 - 35.7 g/dL [facility] RDW CV 13.9 11.1 - 14.9 % [facility] RDW SD 45.0 35.7 - 48.1 fL [facility] NRBC abs 0.00 0.00 - 0.01 K/cumm [facility] Blood specimen (specimen) 05/26/2019 7:49 PM CDT 05/26/2019 8:13 PM CDT Jasper Canchola MD LAB BLOOD ORDERABLES Marianne l Result Performing Organization Address [facility] Co de Phone Number [facility] Department [place] [address] * XR Chest 1 View - in [...] resection) 05/26/2019 12:30 PM CDT Narrative PATHOLOGY [facility] - 06/02/2019 11:23 PM CDT EPIC results best viewed via link to PDF [facility] of Surgical [place] [address] SURGICAL PATHOLOGY REPORT FINAL WITH ADDENDUM Patient Name: ?? MP KULKARNI Gender: ??M : ??[id number] (Age: 54) Address: ??[address] [place] [address] ??[address] Hospital #: ??[id number] Taken:05/26/2019 Received:05/26/2019 Reported: 06/02/2019 Patient Type: [facility] Inpatient ?? Service: Cardiothoracic Location: [place] [id number] Physician(s): ??Jasper Canchola M.D. KALPANA Lema M.D. [...] lung, with prior node biopsies showing metastases ([id number]). ??Operative procedure: Thoracotomy, right lower lobectomy, and [...] determined by the Surgical Pathology Department at [facility] as part of an ongoing air quality technician program and in compliance with federally [...] determined by the Surgical Pathology Department of [facility]. ??It has not been cleared or approved by the U. S. Food and Drug Administration. IMAGES AND SCANNED DOCUMENTS, IF INCLUDED, ONLY VIEWABLE IN PDF VERSION OF REPORT Jasper Canchola MD LAB PATHOLOGY ORDERABLES Final Result PATHOLOGY [facility] 3rd Floor [place], [place] [phone] documented in this encounter Visit Diagnoses Diagnosis [...] Nightly, First dose (after last modification) on [facility] 05/28/19 at 2100 Given 05/29/2019 8:46 PM CDT 300 mg Given 05/28/2019 8:49 PM CDT 300 mg lidocaine (LIDODERM) 5 % patch 1 patch 1 patch, transdermal, Administer over 12 Hours, Daily, First dose on [facility] 05/28/19 at 1815, Do not cover [...] Du Anderson RN) 0841 (Given - Provider: pM Matos, KAMILA) 0751 (Given - Provider: Matteo [...] 0748 (Given - Provider: Matteo Hernandez RN)0930 ([facility] Hold - Provider: Automatic Transfer Provider - [...] mg/mL) infusion (premix) (CANCELED) Continuous dose: None, CANDY FEEDER dose: 0.2 mg, CANDY FEEDER lockout: 10 Minutes, 1 hour limit: Other [...] Transfer Provider - Reason: Patient not available)1257 ([facility] Unhold - Provider: Automatic Transfer Provider) ondansetron (ZOFRAN) injection 4 mg 4 mg, intravenous, Administer over 2 Minutes, Every 6 hours PRN, nausea, vomiting, Starting on Priscila 05/26/19 at 2127, Administer no sooner than 6 hours after last dose. , Indications: Nausea and Vomiting 0930 (MAY Hold - Provider: Automatic Transfer Provider - Reason: Patient not available)1257 ([facility] Unhold - Provider: Automatic Transfer Provider) oxyCODONE [...] RN)0748 (Given - Provider: Matteo Hernandez, KAMILA)0930 ([facility] Hold - Provider: Automatic Transfer Provider - Reason: Patient not available)1257 ([facility] Unhold - Provider: Automatic Transfer Provider)1310 (Given [...] 05/27/2019 documented in this encounter Care Teams Plastic Welding Machine Operator Relationship Specialty Start Date End Date Clara Stanley PA [address] [place] [address] PCP - General Nurse Practitioner 04/05/19 Jasper Canchola MD [address] [place] [address] Surgeon Thoracic Surgery 05/11/19 [place] [address] [place] [address] Clinical Social Work Aide Pulmonary Disease 05/11/19 Kip Del Rio MD [address] [facility] [address] [place] [address] Medical Oncologist/Slot Key Person Hematology and Oncology 05/11/19 Jacob Flynn MD [address] [facility] [address] [place] [address] Radiation Oncologist Radiation Oncology 05/25/19 documented as of this encounter
--- OUTSIDE RECORDS SUMMARY | 2024-03-02 04:24 | XMS_ITS | Encounter Summary ---
Author Organization [facility] Address [address] [facility] [address] [place] [address] Care Team Providers Care Pulverizing And Sifting Operator Name Role Phone Clara Stanley Primary Care Provider + Jasper Canchola MD Unavailable Alexis Lopez MD Unavailable Kip Del Rio MD Unavailable Jacob Flynn MD Unavailable Encounter Details Date Type Department Care Team (Late st Contact Info) Description 07/06/2019 Telephone [facility] Pulmonology [address] [place] [address] Alexis Lopez MD [address] [facility] [address] [place] [address] Social History Tobacco Use Types Packs/Day Years Used Date Smoking Tobacco: Never Smokeless Tobacco: Never Alcohol Use Standard Drinks/Week Comments Yes 0 (1 standard drink = 0.6 oz pur e alcohol) social Sex and Gender Information Value Date Recorded Sex Assigned at Not on file Legal Sex Male 1:17 AM DEPUTY [place] Gender Identity Not on file Sexual Orientation [...] on filedocumented in this encounter Care Teams Pulverizing And Sifting Operator Relationship Specialty Start Date End Date Clara Stanley PA [address] [place] [address] PCP - General Nurse Practitioner 04/05/19 Jasper Canchola MD [address] [place] [address] Surgeon Thoracic Surgery 05/11/19 Alexis Lopez MD [address] [address] Instrument Repairer Steam Plant Pulmonary Disease 05/11/19 Kip Del Rio MD [address] [facility] [address] [place] [address] Medical Oncologist/Assembler Lay Ups Hematology and Oncology 05/11/19 Jacob Flynn MD [address] [facility] [address] [place] [address] Radiation Oncologist Radiation Oncology 05/25/19 documented as of this encounter
--- OUTSIDE RECORDS SUMMARY | 2024-03-02 04:24 | XMS_ITS | Encounter Summary ---
Author Organization [facility] Address [address] [place] [address] Care Team Providers Care Training And Development Coordinator Name Role Phone Clara Stanley Primary Care Provider + Jasper Canchola MD Unavailable Alexis Lopez MD Unavailable Kip Del Rio MD Unavailable Jacob Flynn MD Unavailable Encounter Details Date Type Department Care Team (Late st Contact Info) Description 08/09/2019 1:45 PM CDT Lab [address] [address] Pre-op testing Social History Tobacco Use Types Packs/Day Years Used Date Smoking Tobacco: Never Smokeless Tobacco: Never Alcohol Use Standard Drinks/Week Comments Yes 2 (1 standard drink = 0.6 oz pur e alcohol) Sex and Gender Information Value Date Recorded Sex Assigned at Not on file Legal 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 The 2019-Novel Coronavirus [...] MICROBIOLOGY - GENERA L ORDERABLES Final Result [facility] One [facility] Department [place] [address] documented in this encounter Visit Diagnoses Diagnosis Pre-op testing Unspecified pre-operative examination documented in this encounter Care Teams Training And Development Coordinator Relationship Specialty Start Date End Date Clara Stanley PA [address] [place] [address] PCP - General Nurse Practitioner 04/05/19 Jasper Canchola MD [address] [place] [address] Surgeon Thoracic Surgery 05/11/19 Alexis Lopez MD [address] [facility] [facility] [address] [place] [address] [place] [address] Building Code Inspector Pulmonary Disease 05/11/19 Kip Del Rio MD [address] [facility] [address] [place] [address] Medical Oncologist/Middleware Solutions Architect Hematology and Oncology 05/11/19 Jacob Flynn MD [address] [facility] [address] [place] [address] Radiation Oncologist Radiation Oncology 05/25/19 documented as of this encounter
--- OUTSIDE RECORDS SUMMARY | 2024-03-02 04:24 | XMS_ITS | Encounter Summary ---
Author Organization [facility] Address [address] [facility] [address] [place] [address] Phone Care Team Providers Care Credit Relationship Manager Name Role Phone Clara Stanley Primary Care Provider + Jasper Canchola MD Unavailable Alexis Lopez MD Unavailable Kip Del Rio MD Unavailable Jacob Flynn MD Unavailable Encounter Details Date Type Department Care Team (Late st Contact Info) Description 06/16/[address] [facility] Surgery [address] [facility] Advanced Medicine 8th [place] [address] [place] [address] Stephanie Bautista, TJ [address] [facility] [address]233[address]07-15 [place] [address] Social History Tobacco Use Types Packs/Day Years Used Date Smoking Tobacco: Never Smokeless Tobacco: Never Alcohol Use Standard Drinks/Week Comments Yes 0 (1 standard drink = 0.6 oz pur e alcohol) social Sex and Gender Information Value Date Recorded Sex Assigned at Not on file Legal Sex Male 1:17 AM FLOWER PLANTER Gender Identity Not on file Sexual Orientation [...] patient. Discussed CXR in 4 weeks at [facility]. He understands the order has been placed and he needs to call [place] to get the CXR scheduled. VENU Zapata- ----- Message from Jasper Canchoal MD sent at 06/15/2019 4:34 PM CDT [...] Bautista NP, Afia Hutton, # Subject: Appointment/CT [facility]- please take a look at his [facility] CXR from yesterday. Also, please review my note from today. Let me know if you feel differently. Needs ROV with contrast CT chest in 4 months. Thanks!! documented in this encounter Plan of Treatment Not on file documented as of this encounter Visit Diagnoses Not on filedocumented in this encounter Care Teams Credit Relationship Manager Relationship Specialty Start Date End Date Clara Stanley PA [address] [place] [address] PCP - General Nurse Practitioner 04/05/19 Jasper Canchola MD [address] [place] [address] Surgeon Thoracic Surgery 05/11/19 Alexis Loepz MD 46[address] [facility] [address] [address] Outside Installation Machinist Pulmonary Disease 05/11/19 Kip Del Rio MD 49[address] [facility] [address] [place], [place] [id number] Medical Oncologist/Supervisor Assembly Room Hematology and Oncology 05/11/19 Jacob Flynn MD [address] [facility] [address] LL LL [address] [place], [place] [id number] Radiation Oncologist Radiation Oncology 05/25/19 documented as of this encounter
--- OUTSIDE RECORDS SUMMARY | 2024-03-02 04:24 | XMS_ITS | Encounter Summary ---
Author Organization [facility] Address [address] [place] [address] Phone Care Team Providers Care Supervisor Fruit Grading Name Role Phone Clara Stanley Primary Care Provider + Jasper Canchola MD Unavailable Alexis Lopez MD Unavailable [phone] Kip Del Rio MD Unavailable [phone] Jacob Flynn MD Unavailable Encounter Details Date Type Department Care Team (Late st Contact Info) Description 06/15/2019 9:00 AM CDT Telemedicine [facility] Surgery [address] [facility] Advanced Medicine 8th [place] [address] [place] [address] Stephanie Bautista, LABORER GOLF COURSE [address] [facility] [place] [address]07-15 [place] [address] Cough (Primary Dx) Social History Tobacco Use Types Packs/Day Years Used Date Smoking Tobacco: Never Smokeless Tobacco: Never Alcohol Use Standard Drinks/Week Comments Yes 0 (1 standard drink = 0.6 oz pur e alcohol) social Sex and Gender Information Value Date Recorded Sex Assigned at Not on file 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 I reviewed those images. He has [...] via Telephone. During thevisit, I was located [facility] and the patient was located [address] [place] [phone] . The session started at 9:01 am [...] documented in this encounter Care Teams Supervisor Fruit Grading Relationship Specialty Start Date End Date Clara Stanley PA [address] [place] [address] PCP - General Nurse Practitioner 04/05/19 Jasper Canchola MD [address] [place] [address] [id number] Surgeon Thoracic Surgery 05/11/19 Alexis Lopez MD [address] [address] Wheelchair Van Operator First Responder Pulmonary Disease 05/11/19 Kip Del Rio MD [address] [facility] [address] [place] [address] Medical Oncologist/Risk Investigator Hematology and Oncology 05/11/19 Jacob Flynn MD [address] [facility] [address] LL LL [address] [place] [address] Radiation Oncologist Radiation Oncology 05/25/19 documented as of this encounter
--- OUTSIDE RECORDS SUMMARY | 2024-03-02 04:24 | XMS_ITS | Encounter Summary ---
Author Organization [facility] Address [address] [place] [address] Care Team Providers Care Ehs Teacher Name Role Phone Clara Stanley Primary Care Provider + Jasper Canchola MD Unavailable Alexis Lopez MD Unavailable Kip Del Rio MD Unavailable Jacob Flynn MD Unavailable Encounter Details Date Type Department Care Team (Latest Contact Info) Description 06/15/2019 7:42 AM CDT - 06/15/2019 11:59 PM CDT Hospital Encounter [facility] ([facility]) [address] [place] [address] Discharge Disposition: Discharge to home or self care Social History Tobacco Use Types Packs/Day Years Used Date Smoking Tobacco: Never Smokeless Tobacco: Never Alcohol Use Standard Drinks/Week Comments Yes 0 (1 standard drink = 0.6 oz pur e alcohol) social Sex and Gender Information Value Date Recorded Sex Assigned at Not on file Legal Sex Male 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 ??There will be no report generated by a [facility] Radiologist. Narrative RAD_PACS_[facility] - 06/15/2019 7:42 AM CDT EXAMINATION: ??Images For Reference Purposes Only us Jasper Canchola MD IMG XR PROCEDURES Final R esult RAD_PACS_[facility] documented in this encounter Visit Diagnoses Not on filedocumented in this encounter Care Teams Ehs Teacher Relationship Specialty Start Date End Date Clara Stanley PA [address] [place] [address] PCP - General Nurse Practitioner 04/05/19 Jasper Canchola MD [address] [place] [address] Surgeon Thoracic Surgery 05/11/19 Alexis Lopez MD 4600 [facility] [address] [address] Dev Ops Engineer Pulmonary Disease 05/11/19 Kip Del Rio MD 49[address] [facility] [address] [place] [address] Medical Oncologist/Email Production Consultant Hematology and Oncology 05/11/19 Jacob Flynn MD [address] [facility] # LL LL [address] [place] [address] Radiation Oncologist Radiation Oncology 05/25/19 documented as of this encounter
--- OUTSIDE RECORDS SUMMARY | 2024-03-02 04:24 | XMS_ITS | Encounter Summary ---
Author Organization [facility] Address [address] [place] [address] Phone Care Team Providers Care Crab Meat Processor Name Role Phone Clara Stanley Primary Care Provider + Jasper Canchola MD Unavailable Alexis Lopez MD Unavailable Kip Del Rio MD Unavailable Jacob Flynn MD Unavailable [phone] Encounter Details Date Type Department Care Team (Late st Contact Info) Description 06/29/2019 Orders Only [facility] Surgery 4921 [facility] Advanced Medicine 8th [place] [address] [place] [address] Judy Frias RMA Lung nodule (Primary Dx) Social History Tobacco Use Types Packs/Day Years Used Date Smoking Tobacco: Never Smokeless Tobacco: Never Alcohol Use Standard Drinks/Week Comments Yes 0 (1 standard drink = 0.6 oz pur e alcohol) social Sex and Gender Information Value Date Recorded Sex Assigned at Not on file Legal Sex Male 1:17 AM OPAL MINER Gender Identity Not on file Sexual Orientation Straight 09/22/2019 8: 21 PM CDT documented as of this encounter Plan of Treatment Not on file documented as of this encounter Visit Diagnoses Diagnosis Lung nodule- Primary Other diseases of lung, not elsewhere classified documented in this encounter Care Teams Crab Meat Processor Relationship Specialty Start Date End Date Clara Stanley PA [address] [place] [address] PCP - General Nurse Practitioner 04/05/19 Jasper Canchola MD [address] [place] [address] Surgeon Thoracic Surgery 05/11/19 Alexis Lopez MD [address] [address] Epic Cadence Analyst Pulmonary Disease 05/11/19 Kip Del Rio MD [email or web address] [address] [place] [address] Medical Oncologist/Medical Records Tech Hematology and Oncology 05/11/19 Jacob Flynn MD [email or web address] [address] LL [address] [place] [address] Radiation Oncologist Radiation Oncology 05/25/19 documented as of this encounter
--- OUTSIDE RECORDS SUMMARY | 2024-03-02 04:24 | XMS_ITS | Encounter Summary ---
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 [address] [place] [address] Medical Oncologist/Patient Care Representative Hematology and Oncology 05/11/19 Jacob Flynn MD [address] [facility] [address] # LL LL [address] [place] [address] Radiation Oncologist Radiation Oncology 05/25/19 documented as of this encounter
--- OUTSIDE RECORDS SUMMARY | 2024-03-02 04:24 | XMS_ITS | Encounter Summary ---
Author Organization [facility] Address [address] [facility] [address] [place] [address] Phone Care Team Providers Care Yard Worker Name Role Phone Clara Stanley Primary Care Provider + Jasper Canchola MD Unavailable Alexis Lopez MD Unavailable Kip Del Rio MD Unavailable Jacob Flynn MD Unavailable Encounter Details Date Type Department Care Team (Late st Contact Info) Description 06/28/2019 Telephone [facility] Surgery 4921 [facility] Advanced Medicine 8th [place] [address] [place] [address] Stephanie Bautista, TJ [address] [facility] [address]07-15 [place] [address] Social History Tobacco Use Types Packs/Day Years Used Date Smoking Tobacco: Never Smokeless Tobacco: Never Alcohol Use Standard Drinks/Week Comments Yes 0 (1 standard drink = 0.6 oz pur e alcohol) social Sex and Gender Information Value Date Recorded Sex Assigned at Not on file Legal Sex Male 1:17 AM COMMUNITY RELATIONS LIAISON Gender Identity Not on file Sexual Orientation [...] Sent: 06/28/2019 3:52 PM CDT To: Stephanie Bauitsta NP, Afia Hutton, # I will wait until images are in [facility], but by text images, looks pretty good. [...] Yes, they are going to show in [facility], it takes a min sometimes ----- Message ----- From: Jasper Canchola MD Sent: 06/28/2019 3:38 PM CDT To: Stephanie Bautista NP, Afia Hutton, # ?? To [facility] ----- Message ----- From: Judy Frias MA Sent: 06/28/2019 3:26 PM CDT To: Stephanie Bautista NP, Afia Hutton, # CXR uploaded into [employer] documented in this encounter Plan of Treatment Not on file documented as of this encounter Visit Diagnoses Not on filedocumented in this encounter Care Teams Yard Worker Relationship Specialty Start Date End Date Clara Stanley PA [address] [place] [address] PCP - General Nurse Practitioner 04/05/19 Jasper Canchola MD [address] [place] [address] Surgeon Thoracic Surgery 05/11/19 Alexis Lopez MD [address] [address] Switch Repairer Pulmonary Disease 05/11/19 Kip Del Rio MD [address] [facility] [address] [place] [address] Medical Oncologist/Cnc Machinist Hematology and Oncology 05/11/19 Jacob Flynn MD [address] [facility] [address] [place] [address] Radiation Oncologist Radiation Oncology 05/25/19 documented as of this encounter
--- OUTSIDE RECORDS SUMMARY | 2024-03-02 04:24 | XMS_ITS | Encounter Summary ---
Author Organization [facility] Address [address] [place] [address] Care Team Providers Care Queen'S Counsel Name Role Phone Clara Stanley PA Primary Care Provider + Jasper Canchola MD Unavailable Alexis Lopez MD Unavailable Kip Del Rio MD Unavailable Jacob Flynn MD Unavailable Renetta Ballesteros NP Unavailable [phone] Encounter Details Date Type Department Care Team (Late st Contact Info) Description 05/30/2019 Documentation 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 Gender Identity Not on file Sexual [...] surgery Feel free to contact me at [phone] with further inquiries documented in this encounter Plan of Treatment Not on file documented as of this encounter Visit Diagnoses Not on filedocumented in this encounter Care Teams Queen'S Counsel Relationship Specialty Start Date End Date Clara Stanley PA [address] [place] [address] PCP - General Nurse Practitioner 04/05/19 Jasper Canchola MD [address] [place] [address] Surgeon Thoracic Surgery 05/11/19 Alexis Lopez MD [address] [address] Research Environmental Engineer Pulmonary Disease 05/11/19 Kip Del Rio MD [address] [place] [address] Medical Oncologist/Environmental Services Specialist Hematology and Oncology 05/11/19 Jacob Flynn MD [address] [place] [address] Radiation Oncologist Radiation Oncology 05/25/19 Renetta Ballesteros NP [address] [place] [address] Nurse Practitioner Radiation Oncology 06/11/22 documented as of this encounter
--- OUTSIDE RECORDS SUMMARY | 2024-03-02 04:24 | XMS_ITS | Encounter Summary ---
Author Organization [facility] Address [address] [facility] [address] [place] [address] Care Team Providers Care Production Recovery Operator Name Role Phone Clara Stanley Primary Care Provider + Jasper Canchola MD Unavailable Alexis Lopez MD Unavailable [phone] Kip Del Rio MD Unavailable Jacob Flynn MD Unavailable [phone] Encounter Details Date Type Department Care Team (Late st Contact Info) Description 06/28/2019 Orders Only [facility] Health Information Management [address] [place] [address] Scanning, Provider Social History Tobacco Use Types Packs/Day Years Used Date Smoking Tobacco: Never Smokeless Tobacco: Never Alcohol Use Standard Drinks/Week Comments Yes 0 (1 standard drink = 0.6 oz pur e alcohol) social Sex and Gender Information Value Date Recorded Sex Assigned at Not on file Legal 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 Gender Identity Not on file Sexual [...] filedocumented in this encounter Care Teams Production Recovery Operator Relationship Specialty Start Date End Date Clara Stanley PA [address] [place] [address] PCP - General Nurse Practitioner 04/05/19 Jasper Canchola MD [address] [place] [address] Surgeon Thoracic Surgery 05/11/19 Alexis Lopez MD [address] [address] Glaze Wiper Pulmonary Disease 05/11/19 Kip Del Rio MD [address] [facility] [address] [place] [address] Medical Oncologist/Billet Shearer Hematology and Oncology 05/11/19 Jacob Flynn MD [address] [facility] [address] LL [address] [place], [place] [id number] Radiation Oncologist Radiation Oncology 05/25/19 documented as of this encounter
--- OUTSIDE RECORDS SUMMARY | 2024-03-02 04:24 | XMS_ITS | Encounter Summary ---
Author Organization [facility] Healthcare Address [address] [place] [address] Care Team Providers Care Color Developer Name Role Phone Clara Stanley Primary Care Provider + Jasper Canchola MD Unavailable Aelxis Lopez MD Unavailable Kip Del Rio MD Unavailable Jacob Flynn MD Unavailable Encounter Details Date Type Department Care Team (Late st Contact Info) Description 08/08/[address] 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 Gender Identity Not on file Sexual Orientation Straight 09/22/2019 8: 21 PM CDT documented as of this encounter Progress Notes * Jessy Hernandez MA - 08/08/2019 8:29 AM CDT Pre-surgical Order placed and sent to [facility] documented in this encounter Miscellaneous Notes * Addendum Note - Torito Sanchez - 08/08/2019 8:29 AM CDTAddended by: TORITO SANCHEZ on: 08/09/2019 01:33 PM Modules accepted: Orders documented in this encounter Plan of Treatment Not on file documented as of this encounter Results * COVID-19 Coronavirus RNA Nasopharyngeal (08/09/2019 1:33 PM CDT) COVID-19 RNA Not Detected SEJAL ARNOLD Comment: Interpretive Data Testing performed at [facility] Molecular Infectious Disease Laboratory. The 2018-Novel Coronavirus [...] L ORDERABLES Final Result SEJAL HEARN [facility] Department [place] [address] documented in this encounter Visit Diagnoses Diagnosis Pre-op testing- Primary Unspecified pre-operative examination Pre-op testing Unspecified pre-operative examination documented in this encounter Care Teams Color Developer Relationship Specialty Start Date End Date Clara Stanley PA [address] [place] [address] PCP - General Nurse Practitioner 04/05/19 Jasper Canchola MD [facility] [place] [address] Surgeon Thoracic Surgery 05/11/19 Alexis Lopez MD 4600 [facility] [address] [address] P 3 Armament/Ordnance Ima Technician Pulmonary Disease 05/11/19 Kip Del iRo MD [address] [facility] [address] [place] [address] Medical Oncologist/Materials Manager Hematology and Oncology 05/11/19 Jacob Flynn MD [address] [place] [address] Radiation Oncologist Radiation Oncology 05/25/19 documented as of this encounter
--- OUTSIDE RECORDS SUMMARY | 2024-03-02 04:24 | XMS_ITS | Encounter Summary ---
Author Organization [facility] Healthcare Address [address] [place] [address] Care Team Providers Care Hospital Coordinator Name Role Phone Clara Stanley Primary Care Provider + Jasper Canchola MD Unavailable Alexis Lopez MD Unavailable Kip Del Rio MD Unavailable Jacob Flynn MD Unavailable Encounter Details Date Type Department Care Team (Late st Contact Info) Description 08/07/2019 Orders Only [facility] HealthCare/ Physicians [address] [place] [address] Jasper Canchola MD [address] [facility] [address]07[address] [place] [address] Pre-procedure lab exam (Primary Dx) Social History Tobacco Use Types Packs/Day Years Used Date Smoking Tobacco: Never Smokeless Tobacco: Never Alcohol Use Standard Drinks/Week Comments Yes 2 (1 standard drink = 0.6 oz pur e alcohol) Sex and Gender Information Value Date Recorded Sex Assigned at Not on file Legal Sex Male 1:[address] INSPECTOR Gender Identity Not on file Sexual [...] examination documented in this encounter Care Teams Hospital Coordinator Relationship Specialty Start Date End Date Clara Stanley PA [address] [place] [address] PCP - General Nurse Practitioner 04/05/19 Jasper Canchola MD [address] [place] [address] Surgeon Thoracic Surgery 05/11/19 Alexis Lopez MD [address] [address] Mechanical Design Engineer Facilities Pulmonary Disease 05/11/19 Kip Del Rio MD [address] [facility] [address] [place] [address] Medical Oncologist/Logistics Coordinator Hematology and Oncology 05/11/19 Jacob Flynn MD [address] [facility] [address] LL [address] [place] [address] Radiation Oncologist Radiation Oncology 05/25/19 documented as of this encounter
--- OUTSIDE RECORDS SUMMARY | 2024-03-02 04:24 | XMS_ITS | Encounter Summary ---
Author Organization [facility] Address [address] [place] [address] Phone Care Team Providers Care Metallurgical Engineering Technician Name Role Phone Clara Stanley Primary Care Provider + Jasper Canchola MD Unavailable Alexis Lopez MD Unavailable Kip Del Rio MD Unavailable Jacob Flynn MD Unavailable Encounter Details Date Type Department Care Team (Late st Contact Info) Description 06/28/2019 Orders Only [facility] Surgery 49[address] [facility] Advanced Medicine 8th [place] [address] [place] [address] Stephanie Bautista, DRY WALL NAILER [address] [facility] [address]07-[address] [place] [address] Pneumonitis (Primary Dx) Social History Tobacco Use Types Packs/Day Years Used Date Smoking Tobacco: Never Smokeless Tobacco: Never Alcohol Use Standard Drinks/Week Comments Yes 0 (1 standard drink = 0.6 oz pur e alcohol) social Sex and Gender Information Value Date Recorded Sex Assigned at Not on file Legal Sex Male 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 Accounting Clerks Supervisor completed using [employer]ider Direct speaking software, therefore, food crops farm hand variances may occur. documented in this encounter Plan of Treatment Not on file documented as of this encounter Visit Diagnoses Diagnosis Pneumonitis- Primary Pneumonia, organism unspecified documented in this encounter Care Teams Metallurgical Engineering Technician Relationship Specialty Start Date End Date Clara Stanley PA [address] [place] [address] PCP - General Nurse Practitioner 04/05/19 Jasper Canchola MD [address] [place] [address] Surgeon Thoracic Surgery 05/11/19 Alexis Lopez MD [address] [facility] [address] [address] Dining Services Manager Pulmonary Disease 05/11/19 Kip Del Rio MD [address] [facility] [address] [place] [address] Medical Oncologist/Drink Mixer Hematology and Oncology 05/11/19 Jacob Flynn MD 4921 [facility] [address] LL [address] [place] [address] Radiation Oncologist Radiation Oncology 05/25/19 documented as of this encounter
--- OUTSIDE RECORDS SUMMARY | 2024-03-02 04:24 | XMS_ITS | Encounter Summary ---
Author Organization [facility] Facility Care Team Providers Care Monkey Keeper Name Role Phone Clara Stanley Primary Care Provider + Jasper Canchola MD Unavailable Alexis Lopez MD Unavailable [phone] Kip Del Rio MD Unavailable Jacob Flynn [...] on file Legal Sex Male 1:17 AM MISSION ASSESSMENT SPECIALIST Gender Identity Not on file Sexual [...] on filedocumented in this encounter Care Teams Monkey Keeper Relationship Specialty Start Date End Date Clara Stanley PA [address] [place] [address] PCP - General Nurse Practitioner 04/05/19 Jasper Canchola MD [address] [place] [address] [id number] Surgeon Thoracic Surgery 05/11/19 Alexis Lopez MD [address] [address] Voltage Regulator Assembler Pulmonary Disease 05/11/19 Kip Del Rio MD [address] [facility] [address] [place] [address] Medical Oncologist/Upstairs Maid Hematology and Oncology 05/11/19 Jacob Flynn MD [address] [facility] [address] [place] [address] Radiation Oncologist Radiation Oncology 05/25/19 documented as of this encounter
--- OUTSIDE RECORDS SUMMARY | 2024-03-02 04:24 | XMS_ITS | Encounter Summary ---
Author Organization [facility] Address [address] [facility] [address] [place] [address] Care Team Providers Care Xm1 Tank Driver Name Role Phone Clara Stanley Primary Care Provider + Jasper Canchola MD Unavailable [phone] Alexis Lopez MD Unavailable [phone] Kip Del Rio MD Unavailable [phone] Jacob Flynn MD Unavailable Reason for Referral * Diagnostic Imaging (Routine) - Closed Specialty Diagnoses / Procedures Referred By Erik t Referred To Contact Diagnoses Cough Productive cough Pleural effusion Procedures XR Chest Pa Lateral 2 Views Alexis Lopez MD [address] [facility] [address] [place] [address] Phone: tel: fax: [address] [address] Referral ID Status Reason Start Date Expiration Date Visits Re quested Visits Authorized [id number] Closed 07/04/2019 01/12/2021 1 1 Encounter Details Date Type Department Care Team (Late st Contact Info) Description 07/04/2019 Telephone [facility] Pulmonology [address] [place] [address] [address] [place] [address] Yolanda Segal, KAMILA Social History Tobacco Use Types Packs/Day Years Used Date Smoking Tobacco: Never Smokeless Tobacco: Never Alcohol Use Standard Drinks/Week Comments Yes 0 (1 standard drink = 0.6 oz pur e alcohol) social Sex and Gender Information Value Date Recorded Sex Assigned at Not on file Legal Sex Male 1:17 AM FLOORPERSON Gender Identity Not on file Sexual Orientation Straight 09/22/2019 8: 21 PM CDT documented as of this encounter Miscellaneous Notes * Telephone Encounter - Yolanda Segal RN - 07/04/2019 4:12 PM CDT Spoke to Dr Lopez regarding pts CXR results dates 06/28/19 performed at [facility]. VORB repeat CXR and order a sputum culture as well. Pts Faith was informed and stated they would go to [facility] tomorrow am. Orders have been placed. verbalized understanding. * Telephone Encounter - Alexis Lopez MD - 07/04/2019 2:10 PM CDT Thank you. * Telephone Encounter - Yolanda Segal RN - 07/04/2019 1:21 PM CDT Spoke with with below recommendation. informed that pt just had a CXR on 06/27. Reaching out to [facility] to request these results. * Telephone Encounter [...] scheduled at this time Allergies: Nkda Faith, [phone] documented in this encounter Plan of Treatment [...] LABORATORIES Acid Fast Stain SEE NOTE [facility] Comment: Negative for Acid Fast Bacteria. AFB Culture Prelim Res SEE NOTE [facility] Comment: Specimen received and in progress. Performed by [employer], [address] [place] [address],[place] [address] [email or web address], Carlyle Stewart MD, Lab. Director AFB Culture Final Res SEE NOTE [facility] Comment: Culture negative for acid fast bacilli Performed by [employer], [address] [facility],[place] [address] [email or web address], Carlyle Stewart MD, Lab. Director Sputum 07/05/2019 10:3 6 AM CDT 07/05/2019 12:01 PM CDT Narrative [facility] - 08/31/2019 12:02 AM CDT Specify Source Sputum Sputum Resulting Agency Comment CLI us Alexis Lopez MD LAB MICROBIOLOGY - GENERA L ORDERABLES Edited Result - [place] [address], [facility] [phone] * XR Chest Pa Lateral 2 Views (07/05/2019 9:54 AM CDT) Anatomical Region Laterality Modality Body, Chest N/A Radiographic Trang ging 07/05/2019 10:0 5 AM CDT Narrative 07/05/2019 10:06 AM CDT Patient Name: MP BULLOCK ?Ordering Dr: Alexis Lopez MD ?? D.O.B: 1965 ? Exam Date: 07/05/19 ?? 0954 ?? Age: 54 ?Sex: Male ? MR#: [id number] ?? Loc: ? RADIOLOGY REPORT ?? Order #[id number] ?? Radiology ? Chest 2 Views ? [...] T: ??07/05/2019 10:06 AM ? Report ID: [id number] ?? Reading Location: ??[id number] ? REPORT ELECTRONICALLY SIGNED IN OTHER VENDOR SYSTEM ?? Resulting Agency Comment O Procedure Note Joaquim Botello MD - 07/05/2019 Patient Name: MP BULLOCK Pedro Dr: Alexis Lopez MD DKiyaO.B: 1965 Exam Date: 07/05/19 0954 Age: 54 Sex: Male MR#: [id number] Loc: RADIOLOGY REPORT Order #[id number] Radiology Chest 2 Views Signed EXAM DESCRIPTION: [...] Joaquim Botello M.D. JA: TATIANA Report ID: [id number] Reading Location: [id number] REPORT ELECTRONICALLY SIGNED IN OTHER VENDOR SYSTEM us Alexis Lopez MD IMG XR PROCEDURES Final R esult documented in this encounter Visit Diagnoses Diagnosis Cough- Primary Productive cough Cough Pleural effusion Unspecified pleural effusion Cough Productive cough Cough Pleural effusion Unspecified pleural effusion documented in this encounter Care Teams Xm1 Tank Driver Relationship Specialty Start Date End Date Clara Stanley PA [address] [place] [address] PCP - General Nurse Practitioner 04/05/19 Jasper Canchola MD [address] [place] [address] Surgeon Thoracic Surgery 05/11/19 [place] [address] [place] [address] Asbestos Abatement Technician Pulmonary Disease 05/11/19 Kip Del Rio MD [address] [facility] [address] [place] [address] Medical Oncologist/Dietary Internship Hematology and Oncology 05/11/19 Jacob Flynn MD [address] [facility] [address] [place] [address] Radiation Oncologist Radiation Oncology 05/25/19 documented as of this encounter
--- OUTSIDE RECORDS SUMMARY | 2024-03-02 04:24 | XMS_ITS | Encounter Summary ---
Author Organization [facility] Address [address] [place] [address] Phone Care Team Providers Care National Expansion Recruiter Name Role Phone Clara Stanley Primary Care Provider + Jasper Canchola MD Unavailable Alexis Lopez MD Unavailable Kip Del Rio MD Unavailable Jacob Flynn MD Unavailable Encounter Details Date Type Department Care Team (Late st Contact Info) Description 06/16/[address] [facility] Surgery [address] [facility] Advanced Medicine 8th [place] [address] [place] [address] Judy Frias RMA Lung nodule (Primary Dx) Social History Tobacco Use Types Packs/Day Years Used Date Smoking Tobacco: Never Smokeless Tobacco: Never Alcohol Use Standard Drinks/Week Comments Yes 0 (1 standard drink = 0.6 oz pur e alcohol) social Sex and Gender Information Value Date Recorded Sex Assigned at Not on file Legal Sex Male 1:17 AM MEDICAL RECEPTION SPECIALIST Gender Identity Not on file Sexual [...] classified documented in this encounter Care Teams National Expansion Recruiter Relationship Specialty Start Date End Date Clara Stanley PA [address] [place] [address] PCP - General Nurse Practitioner 04/05/19 Jasper Canchola MD [address] [place] [address] Surgeon Thoracic Surgery 05/11/19 Alexis Lopez MD [address] [address] Utility Aide Pulmonary Disease 05/11/19 Kip Del Rio MD [address] [facility] [address] [place] [address] Medical Oncologist/Flour Tester Hematology and Oncology 05/11/19 Jacob Flynn MD [address] [facility] [address] [place] [address] Radiation Oncologist Radiation Oncology 05/25/19 documented as of this encounter
--- OUTSIDE RECORDS SUMMARY | 2024-03-02 04:24 | XMS_ITS | Encounter Summary ---
Author Organization [facility] Address [address] [place] [address] Phone Care Team Providers Care Council On Aging Director Name Role Phone Clara Stanley Primary Care Provider + Jasper Canchola MD Unavailable Alexis Lopez MD Unavailable Kip Del Rio MD Unavailable [phone] Jacob Flynn MD Unavailable Encounter Details Date Type Department Care Team (Late st Contact Info) Description 06/10/2019 Telephone [facility] Oncology [address] [facility] 7th [place] [address] [place] [address] Imelda De Leon, KAMILA Social History Tobacco Use Types Packs/Day Years Used Date Smoking Tobacco: Never Smokeless Tobacco: Never Alcohol Use Standard Drinks/Week Comments Yes 0 (1 standard drink = 0.6 oz pur e alcohol) social Sex and Gender Information Value Date Recorded Sex Assigned at Not on file Legal Sex Male 1:17 AM SENIOR WEB 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 Gender Identity Not on file Sexual [...] on filedocumented in this encounter Care Teams Council On Aging Director Relationship Specialty Start Date End Date Clara Stanley PA [address] [place] [address] PCP - General Nurse Practitioner 04/05/19 Jasper Canchola MD [address] [place] [address] Surgeon Thoracic Surgery 05/11/19 Alexis Lopez MD [facility] [address] [address] Metal Trades Instructor Pulmonary Disease 05/11/19 Kip Del Rio MD [address] [facility] [address] [place] [address] Medical Oncologist/Event Sales Representative Hematology and Oncology 05/11/19 Jacob Flynn MD [address] [facility] [address] [place] [address] Radiation Oncologist Radiation Oncology 05/25/19 documented as of this encounter
--- OUTSIDE RECORDS SUMMARY | 2024-03-02 04:24 | XMS_ITS | Encounter Summary ---
Author Organization [facility] Address [address] [place] [address] Care Team Providers Care Farm Hand Name Role Phone Clara Stanley Primary Care Provider + Jasper Canchola MD Unavailable Alexis Lopez MD Unavailable [phone] Kip Del Rio MD Unavailable Jacob Flynn MD Unavailable Reason for Referral * Diagnostic Imaging (Routine) - Closed Specialty Diagnoses / Procedures Referred By Erik t Referred To Contact Diagnoses Cough Productive cough Pleural effusion Procedures XR Chest Pa Lateral 2 Views Alexis Lopez MD [address] [facility] [address] [place] [address] [place] [address] Phone: tel: fax: [address] [address] Referral ID Status Reason Start Date Expiration Date Visits Re quested Visits Authorized [id number] Closed 07/04/2019 01/12/2021 1 1 Encounter Details Date Type Department Care Team (Late st Contact Info) Description 07/05/2019 9:51 AM CDT Hospital Encounter [facility] INTERIM Alexis Lopez MD [address] [facility] [address] [place] [address] [place] [address] Cough; Productive cough; Pleural effusion Social History Tobacco Use Types Packs/Day Years Used Date Smoking Tobacco: Never Smokeless Tobacco: Never Alcohol Use Standard Drinks/Week Comments Yes 0 (1 standard drink = 0.6 oz pur e alcohol) social Sex and Gender Information Value Date Recorded Sex Assigned at Not on file Legal Sex Male 1:17 AM DRY BOX TENDER Gender Identity Not on file Sexual [...] ?? Age: 54 ?Sex: Male ? MR#: [id number] ?? Loc: ? RADIOLOGY REPORT ?? Order #[id number] ?? Radiology ? Chest 2 Views ? [...] T: ??07/05/2019 10:06 AM ? Report ID: [id number] ?? Reading Location: ??[id number] ? REPORT ELECTRONICALLY SIGNED IN OTHER VENDOR SYSTEM ?? Resulting Agency Comment O Procedure Note Joaquim Botello MD - 07/05/2019 Patient Name: KWAKU BULLOCK Dr: Alexis Lopez MD D.O.B: 1965 Exam Date: 07/05/19 0954 Age: 54 Sex: Male MR#: [id number] Loc: RADIOLOGY REPORT Order #[id number] Radiology Chest 2 Views Signed EXAM DESCRIPTION: [...] signed by Joaquim SIMPSON: TATIANA Report ID: [id number] Reading Location: [id number] REPORT ELECTRONICALLY SIGNED IN OTHER VENDOR SYSTEM Alexis Lopez MD IMG XR PROCEDURES Final R esult documented in this encounter Visit Diagnoses Diagnosis Cough Productive cough Cough Pleural effusion Unspecified pleural effusion documented in this encounter Care Teams Farm Hand Relationship Specialty Start Date End Date Clara Stanley PA [address] [place] [address] PCP - General Nurse Practitioner 04/05/19 Jasper Canchola MD [address] [place] [address] Surgeon Thoracic Surgery 05/11/19 Alexis Lopez MD [address] [address] Recruitment Internship Pulmonary Disease 05/11/19 Kip Del Rio MD [address] [facility] [address] [place] [address] Medical Oncologist/Wood Cutter Hematology and Oncology 05/11/19 Jacob Flynn MD [address] [facility] [address] LL [address] [place] [address] Radiation Oncologist Radiation Oncology 05/25/19 documented as of this encounter
--- OUTSIDE RECORDS SUMMARY | 2024-03-02 04:24 | XMS_ITS | Encounter Summary ---
Author Organization [facility] Address [address] [place] [address] Phone Care Team Providers Care Gear Generator Set Up Operator Name Role Phone Clara Stanley Primary Care Provider + Jasper Canchola MD Unavailable Alexis Lopez MD Unavailable [phone] Kip Del Rio MD Unavailable [phone] Jacob Flynn MD Unavailable Encounter Details Date Type Department Care Team (Late st Contact Info) Description 06/06/2019 Telephone [facility] Surgery 1 [facility] [address] [place] [address] Keke Pratt, ANGER CONTROL COUNSELOR [address] [facility] [address] Social History Tobacco Use Types Packs/Day Years Used Date Smoking Tobacco: Never Smokeless Tobacco: Never Alcohol Use Standard Drinks/Week Comments Yes 0 (1 standard drink = 0.6 oz pur e alcohol) social Sex and Gender Information Value Date Recorded Sex Assigned at Not on file Legal Sex Male 1:17 AM ELECTRONIC NEWS GATHERING CAMERA PERSON Gender Identity Not on file Sexual Orientation [...] will also be called into his pharmacy ([phone]). All of his questions were addressed and he was satisfied with the above plan. documented in this encounter Plan of Treatment Not on file documented as of this encounter Visit Diagnoses Not on filedocumented in this encounter Care Teams Gear Generator Set Up Operator Relationship Specialty Start Date End Date Clara Stanley PA [address] [place] [address] PCP - General Nurse Practitioner 04/05/19 Jasper Canchola MD [address] [place] [address] Surgeon Thoracic Surgery 05/11/19 Alexis Lopez MD [address] [facility] [address] [address] Winery Worker Pulmonary Disease 05/11/19 Kip Del Rio MD [address] [facility] [address] [place], [place] [id number] Medical Oncologist/Support Staff Hematology and Oncology 05/11/19 Jacob Flynn MD [address] [facility] [address] [place], [place] [address] Radiation Oncologist Radiation Oncology 05/25/19 documented as of this encounter
--- OUTSIDE RECORDS SUMMARY | 2024-03-02 04:24 | XMS_ITS | Encounter Summary ---
Author Organization [facility] Address [address] [place] [address] Care Team Providers Care Barmaid Name Role Phone Clara Stanley Primary Care Provider + Jasper Canchola MD Unavailable Alexis Lopez MD Unavailable Kip Del Rio MD Unavailable Jacob Flynn MD Unavailable Encounter Details Date Type Department Care Team (Late st Contact Info) Description 06/09/2019 Orders Only [facility] Surgeon [address] [place] [address] Jasper Canchola MD [address] [facility] [facility] [id number] [place], [place] [address] Social History Tobacco Use Types Packs/Day Years Used Date Smoking Tobacco: Never Smokeless Tobacco: Never Alcohol Use Standard Drinks/Week Comments Yes 0 (1 standard drink = 0.6 oz pur e alcohol) social Sex and Gender Information Value Date Recorded Sex Assigned at Not on file Legal Sex Male 1:17 AM SYSTEM ARCHITECT Gender Identity Not on file Sexual [...] him know the official decision. Marleny Overton [facility]- Nurse Practitioner for Dr. Emilee Canchola Thoracic Surgery [facility] Cosigned by Jasper Canchola MD at 06/09/2019 12:54 PM CDT documented in this encounter Plan of Treatment Not on file documented as of this encounter Visit Diagnoses Not on filedocumented in this encounter Care Teams Barmaid Relationship Specialty Start Date End Date Clara Stanley PA [address] [place] [address] PCP - General Nurse Practitioner 04/05/19 Jasper Canchola MD [address] [place] [address] Surgeon Thoracic Surgery 05/11/19 Alexis Lopez MD [address] [address] Polymerization Kettle Operator Pulmonary Disease 05/11/19 Kip Del Rio MD [address] [facility] [address] [place] [address] Medical Oncologist/Ceramic Mold Designer Hematology and Oncology 05/11/19 Jacob Flnyn MD [address] [facility] [address] [place], [place] [address] Radiation Oncologist Radiation Oncology 05/25/19 documented as of this encounter
--- OUTSIDE RECORDS SUMMARY | 2024-03-02 04:24 | XMS_ITS | Encounter Summary ---
Author Organization [facility] Address [address] [facility] [address] [place] [address] Phone Care Team Providers Care Otolaryngology Rep Name Role Phone Clara Stanley Primary Care Provider + Jasper Canchola MD Unavailable Alexis Lopez MD Unavailable Kip Del Rio MD Unavailable Jacob Flynn MD Unavailable Reason for Visit * Reason Onset Date Comments Med Refill 06/15/2019 Encounter Details Date Type Department Care Team (Late st Contact Info) Description 06/15/[address] [facility] Surgery [address] [facility] Advanced Medicine 8th [place] [address] [place] [address] Stephanie Bautista, ELECTRICAL TEST ENGINEER [address] [facility] 8233-07-15 [place] [address] Med Refill Social History Tobacco Use Types Packs/Day Years Used Date Smoking Tobacco: Never Smokeless Tobacco: Never Alcohol Use Standard Drinks/Week Comments Yes 0 (1 standard drink = 0.6 oz pur e alcohol) social Sex and Gender Information Value Date Recorded Sex Assigned at Not on file Legal Sex Male 1:17 AM PAPER SPOOLER Gender Identity Not on file Sexual Orientation [...] # 40,no refills called into patient's local [facility] pharmacy. Global Clinical Leader completed using Saber Hacer Direct speaking software, therefore, slot operations manager variances may occur. documented in this encounter Plan of Treatment Not on file documented as of this encounter Visit Diagnoses Not on filedocumented in this encounter Care Teams Otolaryngology Rep Relationship Specialty Start Date End Date Clara Stanley PA [address] [place] [address] PCP - General Nurse Practitioner 04/05/19 Jasper Canchola MD [address] [place] [address] Surgeon Thoracic Surgery 05/11/19 Alexis Lopez MD [address] [address] Adult Nurse Practitioner Pulmonary Disease 05/11/19 Kip Del Rio MD [address] [facility] [address] [place] [address] Medical Oncologist/Front Office Attendant Hematology and Oncology 05/11/19 Jacob Flynn MD [address] [facility] [address] [place] [address] Radiation Oncologist Radiation Oncology 05/25/19 documented as of this encounter
--- OUTSIDE RECORDS SUMMARY | 2024-03-02 04:24 | XMS_ITS | Encounter Summary ---
Author Organization [facility] Address [address] [place] [address] Phone Care Team Providers Care Ios Developer Name Role Phone Clara Stanley Primary Care Provider + Jasper Canchola MD Unavailable Alexis Lopez MD Unavailable Kip Del Rio MD Unavailable Jacob Flynn MD Unavailable Encounter Details Date Type Department Care Team (Late st Contact Info) Description 06/13/[address] [facility] Surgery [address] [facility] Advanced Medicine 8th [place] [address] [place] [address] Judy Frias RMA Lung nodule (Primary Dx) Social History Tobacco Use Types Packs/Day Years Used Date Smoking Tobacco: Never Smokeless Tobacco: Never Alcohol Use Standard Drinks/Week Comments Yes 0 (1 standard drink = 0.6 oz pur e alcohol) social Sex and Gender Information Value Date Recorded Sex Assigned at Not on file Legal Sex Male 1:17 AM ABSORPTION OPERATOR Gender Identity Not on file Sexual [...] classified documented in this encounter Care Teams Ios Developer Relationship Specialty Start Date End Date Clara Stanley PA [address] [place] [address] PCP - General Nurse Practitioner 04/05/19 Jasper Canchola MD [address] [place] [address] Surgeon Thoracic Surgery 05/11/19 Alexis Lopez MD [address] [address] E Learning Manager Pulmonary Disease 05/11/19 Kip Del Rio MD [address] [facility] [address] [place] [address] Medical Oncologist/Medical Equipment Repair Technician Hematology and Oncology 05/11/19 Jacob Flynn MD [address] [facility] [address] [place] [address] Radiation Oncologist Radiation Oncology 05/25/19 documented as of this encounter
--- OUTSIDE RECORDS SUMMARY | 2024-03-02 04:24 | XMS_ITS | Encounter Summary ---
Author Organization [facility] Healthcare Address [address] [place] [address] Care Team Providers Care Pug Mill Operator Helper Name Role Phone Clara Stanley Primary Care Provider + Jasper Canchola MD Unavailable Alexis Lopez MD Unavailable Kip Del Rio MD Unavailable Jacob Flynn MD Unavailable [phone] Encounter Details Date Type Department Care Team (Latest Contact Info) Description 06/28/2019 4:14 PM CDT - 06/28/2019 11:59 PM CDT Hospital Encounter [facility] [address] [place] [address] Discharge Disposition: Discharge to home or self care Social History Tobacco Use Types Packs/Day Years Used Date Smoking Tobacco: Never Smokeless Tobacco: Never Alcohol Use Standard Drinks/Week Comments Yes 0 (1 standard drink = 0.6 oz pur e alcohol) social Sex and Gender Information Value Date Recorded Sex Assigned at Not on file Legal Sex Male 1:17 AM ELECTRICAL PROJECT ENGINEER Gender Identity Not on file Sexual [...] only and have not been reviewed by [facility]. ??There will be no report generated by a [facility] Radiologist. Narrative RAD_PACS_[facility] - 06/28/2019 4:14 PM CDT EXAMINATION: ??Images For Reference Purposes Only us aJsper Canchola MD IMG XR PROCEDURES Final R esult RAD[facility]PACS[facility] documented in this encounter Visit Diagnoses Not on filedocumented in this encounter Care Teams Pug Mill Operator Helper Relationship Specialty Start Date End Date Clara Stanley PA [address] [place] [address] PCP - General Nurse Practitioner 04/05/19 Jasper Canchola MD [address] [place] [address] Surgeon Thoracic Surgery 05/11/19 Alexis Lopez MD [address] [facility] [address] [address] School Program Director Pulmonary Disease 05/11/19 Kip Del Rio MD 49[address] [facility] [address] [place] [address] Medical Oncologist/Inspector Publications Hematology and Oncology 05/11/19 Jacob Flynn MD [address] [facility] [address] [place] [address] Radiation Oncologist Radiation Oncology 05/25/19 documented as of this encounter
--- OUTSIDE RECORDS SUMMARY | 2024-03-02 04:24 | XMS_ITS | Encounter Summary ---
Author Organization [facility] Address [address] [place] [address] Phone Care Team Providers Care Sleeping Car Porter Name Role Phone Clara Stanley Primary Care Provider + Jasper Canchola MD Unavailable Alexis Lopez MD Unavailable [phone] Kip Del Rio MD Unavailable [phone] Jacbo Flynn MD Unavailable Encounter Details Date Type [...] on file Legal Sex Male 1:17 AM COMPENSATION CONSULTING MANAGER Gender Identity Not on file Sexual [...] on filedocumented in this encounter Care Teams Sleeping Car Porter Relationship Specialty Start Date End Date Clara Stanley PA [address] [place] [address] PCP - General Nurse Practitioner 04/05/19 Jasper Canchola MD [address] [place] [address] Surgeon Thoracic Surgery 05/11/19 Alexis Lopez MD [address] [address] Panelboard Operator Pulmonary Disease 05/11/19 Kip Del Rio MD [address] [place] [address] Medical Oncologist/Fall Internship Hematology and Oncology 05/11/19 Jacob Flynn MD [address] [place] [address] Radiation Oncologist Radiation Oncology 05/25/19 documented as of this encounter
--- OUTSIDE RECORDS SUMMARY | 2024-03-02 04:24 | XMS_ITS | Encounter Summary ---
Author Organization [facility] Address [address] [place] [address] Phone Care Team Providers Care Project Associate Name Role Phone Clara Stanley Primary Care Provider + Jasper Canchola MD Unavailable [phone] Alexis Lopez MD Unavailable [phone] Kip Del Rio MD Unavailable [phone] Jacob Flynn MD Unavailable [phone] Reason for Referral * Diagnostic Imaging (Routine) - Closed Specialty Diagnoses / Procedures Referred By Contrebekah t Referred To Contact Radiology Diagnoses Lung nodule Procedures CT Chest W Contrast Jasper Canchola MD Phone: tel: fax: [address] [address] Referral ID Status Reason Start Date Expiration Date Visits Re quested Visits Authorized [id number] Closed 09/13/2019 03/11/2020 1 1 Encounter Details Date Type Department Care Team (Late st Contact Info) Description 06/15/2019 Orders Only [facility] Surgery [address] [facility] 8th [place] [address] [place] [address] Judy Frias RMA Lung nodule (Primary Dx) Social History Tobacco Use Types Packs/Day Years Used Date Smoking Tobacco: Never Smokeless Tobacco: Never Alcohol Use Standard Drinks/Week Comments Yes 0 (1 standard drink = 0.6 oz pur e alcohol) social Sex and Gender Information Value Date Recorded Sex Assigned at Not on file Legal Sex Male 1:17 AM 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 Gender Identity Not on file [...] classified documented in this encounter Care Teams Project Associate Relationship Specialty Start Date End Date Clara Stanley PA [address] [place] [address] PCP - General Nurse Practitioner 04/05/19 Jasper Canchola MD [address] [place] [address] Surgeon Thoracic Surgery 05/11/19 Alexis Lopez MD [address] [address] Drum Sealer Pulmonary Disease 05/11/19 Kip Del Rio MD [address] [facility] [address] [place], [place] [id number] Medical Oncologist/Woodwork Salvage Inspector Hematology and Oncology 05/11/19 Jacob Flynn MD [address] [facility] [address] [place] [address] Radiation Oncologist Radiation Oncology 05/25/19 documented as of this encounter
--- OUTSIDE RECORDS SUMMARY | 2024-03-02 04:25 | XMS_ITS | Encounter Summary ---
Author Organization [facility] Address [address] [place] [address] Phone Care Team Providers Care Asphalt Raker Name Role Phone Clara Stanley Primary Care Provider + Jasper Canchola MD Unavailable Alexis Lopez MD Unavailable [phone] Kip Del Rio MD Unavailable [phone] Encounter Details Date Type Department Care Team (Late st Contact [facility]) Description 05/12/2019 Orders Only [facility] Oncology [address] [facility] 7th [place] [address] [place] [address] Adele Becerra MA 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) Social History Tobacco Use Types Packs/Day Years Used Date Smoking Tobacco: Never Smokeless Tobacco: Never Sex and Gender Information Value Date Recorded Sex Assigned at Not on file Legal Sex Male 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 Gender Identity Not on file Sexual Orientation Straight 09/22/2019 8: 21 PM CDT documented as of this encounter Plan of Treatment Not on file documented as of this encounter Visit Diagnoses Diagnosis 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)- Primary Malignant poorly differentiated neuroendocrine carcinoma, any site documented in this encounter Care Teams Asphalt Raker Relationship Specialty Start Date End Date Clara Stanley PA [address] [place] [address] PCP - General Nurse Practitioner 04/05/19 Jasper Canchola MD [address] [place] [address] Surgeon Thoracic Surgery 05/11/19 Alexis Lopez MD [address] [address] Media Analytics Manager Pulmonary Disease 05/11/19 [place] [address] [place] [address] [address] [place] [address] Medical Oncologist/Toy Trains And Accessories Salesperson Hematology and Oncology 05/11/19 documented as of this encounter
--- OUTSIDE RECORDS SUMMARY | 2024-03-02 04:25 | XMS_ITS | Encounter Summary ---
Author Organization [facility] Address [address] [place] [address] Care Team Providers Care Graphic Technician Name Role Phone Clara Stanley Primary Care Provider + Jasper Canchola MD Unavailable Alexis Lopez MD Unavailable [phone] Kip Del Rio MD Unavailable Encounter Details Date Type Department Care Team (Latest Contact Info) Description 05/12/2019 2:55 PM BUSINESS CONTINUITY CONSULTANT Hospital Encounter [facility] [address] [place] [address] Discharge Disposition: Discharge to home or self care Social History Tobacco Use Types Packs/Day Years Used Date Smoking Tobacco: Never Smokeless Tobacco: Never Sex and Gender Information Value Date Recorded Sex Assigned at Not on file Legal Sex Male 1:17 AM BUSINESS CONTINUITY CONSULTANT Gender Identity Not on file Sexual [...] MR OUTSIDE REFERENCE Routine 05/12/2019 2:55 PM BUSINESS CONTINUITY CONSULTANT Diagnosis unknown documented in this encounter Results * Neuro CT MR Outside Reference (05/12/2019 2:55 PM BUSINESS CONTINUITY CONSULTANT) Impressions [facility] - 05/12/2019 2:55 PM BUSINESS CONTINUITY CONSULTANT These images are for Reference purposes only and have not been reviewed by [facility] Radiology. ??There will be no report generated by a [facility] Radiologist. Narrative [facility] - 05/12/2019 2:55 PM BUSINESS CONTINUITY CONSULTANT EXAMINATION: ??Images For Reference Purposes Only us Kip Del Rio MD IMG CT PROCEDURES Final Re sult [facility] documented in this encounter Visit Diagnoses Not on filedocumented in this encounter Care Teams Graphic Technician Relationship Specialty Start Date End Date Clara Stanley PA [address] [place] [address] PCP - General Nurse Practitioner 04/05/19 Jasper Canchola MD [address] [place] [address] Surgeon Thoracic Surgery 05/11/19 Alexis Lopez MD [address] [address] Knurling Machine Tender Pulmonary Disease 05/11/19 Kip Del Rio MD [address] [facility] [address] [place] [address] Medical Oncologist/User Acceptance Tester Hematology and Oncology 05/11/19 documented as of this encounter
--- OUTSIDE RECORDS SUMMARY | 2024-03-02 04:25 | XMS_ITS | Encounter Summary ---
Author Organization [facility] Care Team Providers Care Defense Attorney Name Role Phone Clara Stanley Primary Care Provider + Jasper Canchola MD Unavailable [phone] Alexis Lopez MD Unavailable [phone] Kip Del Rio MD Unavailable [phone] Encounter Details Date Type Department Care Team (Latest Contact Info) Description 05/19/2019 Travel Social History Tobacco Use Types Packs/Day Years Used Date Smoking Tobacco: Never Smokeless Tobacco: Never Alcohol Use Standard Drinks/Week Comments Yes 0 (1 standard drink = 0.6 oz pur e alcohol) social Sex and Gender Information Value Date Recorded Sex Assigned at Not on file 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 Gender Identity Not on file Sexual Orientation Straight 09/22/2019 8: 21 PM CDT documented as of this encounter Plan of Treatment Not on file documented as of this encounter Visit Diagnoses Not on filedocumented in this encounter Care Teams Defense Attorney Relationship Specialty Start Date End Date Clara Stanley PA [address] [place] [address] PCP - General Nurse Practitioner 04/05/19 Jasper Canchola MD [address] [place] [id number] Surgeon Thoracic Surgery 05/11/19 Alexis Lopez MD [address] [facility] [address] [address] Cigar Head Puncher Pulmonary Disease 05/11/19 Kip Del Rio MD [address] [facility] [address] [place] [address] Medical Oncologist/Skiing Teacher Hematology and Oncology 05/11/19 documented as of this encounter
--- OUTSIDE RECORDS SUMMARY | 2024-03-02 04:25 | XMS_ITS | Encounter Summary ---
Author Organization Formerly [facility] Address [address] [place] [address] Care Team Providers Care Seed Laboratory Technician Name Role Phone Clara Stanley Primary Care Provider + Jasper Canchola MD Unavailable Alexis Lopez MD Unavailable Kip Del Rio MD Unavailable Jacob Flynn MD Unavailable Encounter Details Date Type Department Care Team (Late st Contact Info) Description 05/26/2019 8:20 AM CDT - 05/26/2019 1:00 PM CDT Surgery [facility] Operating Room [address] [place] [address] Jasper Canchola MD [id number] [place] [address] THORACOTOMY LOBECTOMY / lymph node disection Surgery Details Date/Time Status Location OR Service Patient Class Case Class Case Type Trauma Case? 05/26/2019 8:20 AM Posted [facility] OR POD 3 304 Cardiothoracic Surgery Admit [...] file Legal Sex Male 1:17 AM CIRCULAR KNITTER Gender Identity Not on file Sexual Orientation [...] 05/26/2019 Discharge date: 05/30/2019 Admitting Physician: Jasper Canchoal MD Admission Diagnoses: malignant neoplasm of lower [...] oral, Q4H PRN, 650 mg at 05/28/19 4239 ??? acetaZOLAMIDE ER (DIAMOX SEQUAL) extended release [...] Center 06/17/2019 9:00 AM Jasper Canchola MD [facility] [address] [place] Cosigned by Jasper Canchola MD [...] [place]- Acute Pain Service Department of Anesthesiology [facility], [facility] 05/30/2019 12:17 PM * John [...] injury. Diet: ADAT Pain control: Epidural, D/c'd ASSEMBLER FITTER. POPM IS Bowel reg DVT prophylaxis CT [...] injury. Diet: ADAT Pain control: Epidural, D/c'd ASSEMBLER FITTER. POPM D/c IVF IS Bowel reg DVT [...] control currently with epidural @10ml/hr and HM ASSEMBLER FITTER. Patient plans to get up andwalk this afternoon. Patient has received 9.8mg of HM through ASSEMBLER FITTER in last 24 hours. Objective: Temp: [36.4 [...] management - primary team planning on discontinuing ASSEMBLER FITTER and switching to oral medications today Epidural [...] on 05/26/2019 at 1:50 PM. Dictated by: Bceky Olivarez M.D. The radiology attending physician has [...] injury. Diet: ADAT Pain control: Epidural, D/c ASSEMBLER FITTER. POPM IVF: LR at 75 IS Bowel reg DVT prophylaxis CT to WS D/c'd beach, voiding D/c'd A-line, d/c'd OU status John Fernando Cosigned by Jasper Canchola MD at 05/29/2019 11:58 AM CDT * Shelby Tyson RN - 05/27/2019 1:59 PM CDT 05/27/19 7698 Information Information Obtained From Patient Prior to Admission Primary Caregiver Self Support System Spouse/Significant Other Support system contact info (name, phone, availablity) Pavan Kulkarni [phone] Durable Medical Equipment None Living Arrangements Spouse/significant other Type of Residence Private residence Steps in home? 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 Admit Source: home Problem/Goal: Patient awaits further evaluation for medical discharge needs and home needs. CM willassist patient with home needs as indicated and identified for safe discharge planning. Transportation: Cecilia Cuevas [phone] Through the course of our work I [...] Adult Diet Regular Diet effective now Question: ([facility]) Diet type Answer: Regular 05/27/19735 Assessment /Plan Impression: Tolerating oral diet; no N/V, NAD [] Pain is well controlled [x] Pain is moderately controlled [] Pain is poorly controlled Plan: [x] Continue multi-modal pain medication regimen as ordered. [x] Encourage pulmonary toilet [x] Continue bowel regimen. Epidural Local Anesthetic Infusion: [x] Increase to 10 ml/hr IV ASSEMBLER FITTER demand amount: [x] No Change Thank You for involving us in the care of this patient; we will continue to follow. [x] Please call if further pain management questions arise. [] On Q-ball home teaching completed. Verbal and written instructions provided. [x] Plan of care done in collaboration with [x] Plan of care discussed with Primary Service. Clementina Walker [facility] Acute Pain Service Department of Anesthesiology [facility], [facility] 05/27/2019 12:55 PM * John Fernando MD [...] Amy Chun MD, 1,000 mL at 05/26/19 9245 Objective Physical Exam: Constitutional: He is oriented [...] intermedius injury. Diet: ADAT Pain control: Epidural, ASSEMBLER FITTER. Increase epidural rate. IVF: LR at 75 [...] injury. Diet: CLD, ADAT Pain control: Epidural, ASSEMBLER FITTER, Toradol IVF: LR at 75 IS Ancef [...] Ishan Pitts MD - 2019 1:16 PM CIRCULAR KNITTER Images from the original note were not included. Center for Preoperative Assessment and Planning Preoperative Evaluation Record Evaluation type/location: [facility] Planned procedure site: [facility] (Pods 2/3/5/STOCKBROKING DEALER) Date: 05/13/19 Anesthesia Evaluation Mp Kulkarni is [...] and grade I/ Negative for peripheral edema ([facility] L[facility]) Pulmonary Exam: LCTA, bilat EENT Exam: [...] and agree to proceed. All questions answered. ULAR KNITTER ULAR KNITTER ULAR KNITTER documented in this encounter Procedure Notes * [...] removed in 7-10 days by any MD, ANIMAL THERAPIST, tea and spice supervisor. Myrtle Haji MD documented in this encounter Nursing Notes * Imelda Ramesh, KAMILA - 05/30/2019 11:35 AM CDT Patient awaiting sign out from anesthesia. VSS as charted. He is awake, alert and oriented and denying pain. Will continue to monitor until transport back to room . 1235 Patient about to transport back to [facility], but was stopped as per pain management [...] Resident - Observing Anesthesiologist: Sam Castro MD PROCESS ENG: Tirso Turner CRNA Office Communication Professor: Matti Chau RN Scrub: Rik Fernandez RN Office Communication Professor Second: Rickey Booker RN DATE OF SURGERY [...] Diagnostic flexible bronchoscopy. Surgeon Jasper Canchola MD Coin Rolling Machine Operator Amy Chun MD Anesthesia General. Clinical Note [...] no complications noted. Job ID/VF Job ID: [id number] * Plan of Care - Axel Aguirre [...] Ambulation; Transition to PO pain meds; Stop ASSEMBLER FITTER Problem: Health Behavior: Goal: Understanding of discharge [...] rest; c/o some pain with coughing. IS [id number]. Administered Acapella/PEP therapy; patient capable of self [...] A-line Feel free to contact me at [phone] with further inquiries' * Assessment & Plan [...] injury. Diet: ADAT Pain control: Epidural, D/c'd ASSEMBLER FITTER. POPM IS Bowel reg DVT prophylaxis CT [...] Resident - Assisting Anesthesiologist: Taj Perkins MD Office Communication Professor: Rickey Booker RN; Deniz Livingston RN; Ruy [...] plus modifier 22. Surgeon Jasper Canchola MD Coin Rolling Machine Operator Amy Chun MD, MPHS Anesthesia General. Clinical [...] entire operative procedure. Job ID/VF Job ID: [id number] documented in this encounter Plan of Treatment [...] CDT) Sodium 129(L) 135 - 145 mmol/L [facility] Potassium, pl 3.6 3.3 - 4.9 mmol/L [facility] Chloride 98 97 - 110 mmol/L [facility] CO2 23 22 - 32 mmol/L [facility] Anion gap 8 2 - 15 mmol/L [facility] BUN 10 8 - 25 mg/dL [facility] Creatinine 0.70(L) 0.80 - 1.30 mg/dL [facility] Glucose 118 70 - 199 mg/dL [facility] Comment: Interpretive Data Fasting [...] 2017. Calcium 9.0 8.5 - 10.3 mg/dL [facility] Blood specimen (specimen) 05/30/2019 1:12 AM CDT 05/30/2019 1:25 AM CDT Jasper Canchola MD LAB BLOOD ORDERABLES Marianne conde Result [facility] [place] [address] * XR Chest 1 View (05/29/2019 10:19 [...] CDT) WBC 20.6(H) 3.8 - 9.9 K/cumm [facility] Hgb 10.2(L) 13.0 - 17.5 g/dL [facility] Hct 30.6(L) 38.9 - 50.3 % [facility] Plt 288 150 - 400 K/cumm [facility] MPV 12.1 9.1 - 12.3 fL [facility] RBC 3.61(L) 4.30 - 5.80 M/cumm [facility] MCV 84.8 81.3 - 96.4 fL [facility] MCH 28.3 27.1 - 33.3 pg [facility] MCHC 33.3 32.3 - 35.7 g/dL [facility] RDW CV 13.9 11.1 - 14.9 % [facility] RDW SD 43.4 35.7 - 48.1 fL [facility] NRBC abs 0.00 0.00 - 0.01 K/cumm [facility] Blood specimen (specimen) 05/28/2019 10:57 PM CDT 05/28/2019 11:22 PM CDT us Estrellita Reyes NP LAB BLOOD ORDERABLES Final Result Performing Organization Address City/[facility]/ZIP Co de Phone Number [facility] Department [place] [address] * (ABNORMAL) Basic metabolic panel (05/28/2019 10:57 PM CDT) Sodium 131(L) 135 - 145 mmol/L [facility] Potassium, pl 3.8 3.3 - 4.9 mmol/L [facility] Chloride 100 97 - 110 mmol/L [facility] CO2 23 22 - 32 mmol/L [facility] Anion gap 8 2 - 15 mmol/L [facility] BUN 16 8 - 25 mg/dL [facility] Creatinine 0.77(L) 0.80 - 1.30 mg/dL [facility] Glucose 125 70 - 199 mg/dL [facility] Comment: Interpretive Data Fasting [...] 2017. Calcium 8.9 8.5 - 10.3 mg/dL [facility] Blood specimen (specimen) 05/28/2019 10:57 PM CDT 05/28/2019 11:23 PM CDT Estrellita Reyes NP LAB BLOOD ORDERABLES Final Result Performing Organization Address City/[facility]/ZIP Co de Phone Number [facility] Department [place] [address] * XR Chest 1 View (05/28/2019 5:27 [...] signed by: Kathy Johnson M.D. Estrellita Reyes ANIMAL THERAPIST IMG XR PROCEDURES Final Re sult * (ABNORMAL) Basic metabolic panel (05/27/2019 9:53 PM CDT) Sodium 127(L) 135 - 145 mmol/L [facility] Comment:Repeated and Verifie d Potassium, pl 3.7 3.3 - 4.9 mmol/L [facility] Chloride 95(L) 97 - 110 mmol/L [facility] Comment:Repeated and Verifie d CO2 25 22 - 32 mmol/L [facility] Anion gap 7 2 - 15 mmol/L [facility] BUN 20 8 - 25 mg/dL [facility] Creatinine 1.35(H) 0.80 - 1.30 mg/dL [facility] Comment:Repeated and Verifie d Glucose 123 70 - 199 mg/dL [facility] Comment: Interpretive Data Fasting [...] 2017. Calcium 8.9 8.5 - 10.3 mg/dL [facility] Blood specimen (specimen) 05/27/2019 9:53 PM CDT 05/27/2019 10:02 PM CDT us Myrtle Haji MD LAB BLOOD ORDERABLES Final Resul t [facility] [place] [address] * (ABNORMAL) CBC without differential (05/27/2019 9:53 PM CDT) WBC 26.1(H) 3.8 - 9.9 K/cumm [facility] Hgb 11.0(L) 13.0 - 17.5 g/dL [facility] Hct 34.4(L) 38.9 - 50.3 % [facility] Plt 301 150 - 400 K/cumm [facility] MPV 11.5 9.1 - 12.3 fL [facility] RBC 3.88(L) 4.30 - 5.80 M/cumm [facility] MCV 88.7 81.3 - 96.4 fL [facility] MCH 28.4 27.1 - 33.3 pg [facility] MCHC 32.0(L) 32.3 - 35.7 g/dL [facility] RDW CV 14.4 11.1 - 14.9 % [facility] RDW SD 46.1 35.7 - 48.1 fL [facility] NRBC abs 0.00 0.00 - 0.01 K/cumm [facility] Blood specimen (specimen) 05/27/2019 9:53 PM CDT 05/27/2019 10:02 PM CDT us Myrtle Haji MD LAB BLOOD ORDERABLES Final Resul t [facility] [place] [address] * (ABNORMAL) Basic metabolic panel (05/26/2019 11:15 PM CDT) Sodium 136 135 - 145 mmol/L [facility] Potassium, pl 4.0 3.3 - 4.9 mmol/L [facility] Chloride 106 97 - 110 mmol/L [facility] CO2 23 22 - 32 mmol/L [facility] Anion gap 7 2 - 15 mmol/L [facility] BUN 11 8 - 25 mg/dL [facility] Creatinine 0.66(L) 0.80 - 1.30 mg/dL [facility] Glucose 166 70 - 199 mg/dL [facility] Comment: Interpretive Data Fasting [...] 2017. Calcium 9.0 8.5 - 10.3 mg/dL [facility] Blood specimen (specimen) 05/26/2019 11:15 PM CDT 05/26/2019 11:49 PM CDT Jasper Canchola MD LAB BLOOD ORDERABLES Marianne conde Result Performing Organization Address [facility] Co de Phone Number [facility] Department [place] [address] * (ABNORMAL) CBC without differential (05/26/2019 11:15 PM CDT) Pathologist [facility] [place] WBC 24.3(H) 3.8 - 9.9 K/cumm [facility] Hgb 11.6(L) 13.0 - 17.5 g/dL [facility] Hct 35.9(L) 38.9 - 50.3 % [facility] Plt 291 150 - 400 K/cumm [facility] MPV 11.7 9.1 - 12.3 fL [facility] RBC 4.16(L) 4.30 - 5.80 M/cumm [facility] MCV 86.3 81.3 - 96.4 fL [facility] MCH 27.9 27.1 - 33.3 pg [facility] MCHC 32.3 32.3 - 35.7 g/dL [facility] RDW CV 13.8 11.1 - 14.9 % [facility] RDW SD 43.8 35.7 - 48.1 fL [facility] NRBC abs 0.00 0.00 - 0.01 K/cumm [facility] Blood specimen (specimen) 05/26/2019 11:15 PM CDT 05/26/2019 11:49 PM CDT Jasper Canchola MD LAB BLOOD ORDERABLES Marianne conde Result [facility] [place] [address] * (ABNORMAL) Blood gas, arterial (05/26/2019 11:14 PM CDT) Pathologist [facility] [place] pH, Art 7.32(L) 7.35 - 7.45 [facility] PCO2, Arterial 41 35 - 45 mmHg [facility] PO2, Arterial 77(L) 83 - 108 mmHg [facility] HCO3 Art (Calculated) 22 20 - 30 mmol/L [facility] BE, art -5 mmol/L [facility] Comment: Interpretive Data No Reference Range Established Current Interpretive Data was last revised on 2017 O2 Sat Art (Measured) 95 90 - 95 % [facility] Blood specimen (specimen) 05/26/2019 11:14 PM CDT 05/26/2019 11:23 PM CDT Jasper Canchola MD LAB BLOOD ORDERABLES Marianne conde Result [facility] [place] [address] * (ABNORMAL) Basic metabolic panel (05/26/2019 7:49 PM CDT) Pathologist [facility] [place] Sodium 139 135 - 145 mmol/L [facility] Potassium, pl 3.8 3.3 - 4.9 mmol/L [facility] Chloride 110 97 - 110 mmol/L [facility] CO2 21(L) 22 - 32 mmol/L [facility] Anion gap 8 2 - 15 mmol/L [facility] BUN 11 8 - 25 mg/dL [facility] Creatinine 0.68(L) 0.80 - 1.30 mg/dL [facility] Glucose 155 70 - 199 mg/dL [facility] Comment: Interpretive Data Fasting [...] 2017. Calcium 9.1 8.5 - 10.3 mg/dL [facility] Blood specimen (specimen) 05/26/2019 7:49 PM CDT 05/26/2019 8:13 PM CDT Jasper Canchola MD LAB BLOOD ORDERABLES Marianne l Result Performing Organization Address [facility] Co de Phone Number [facility] [place] [address] * (ABNORMAL) CBC without differential (05/26/2019 7:49 PM CDT) [facility] WBC 25.0(H) 3.8 - 9.9 K/cumm [facility] Hgb 12.0(L) 13.0 - 17.5 g/dL [facility] Hct 37.1(L) 38.9 - 50.3 % [facility] Plt 288 150 - 400 K/cumm [facility] MPV 11.6 9.1 - 12.3 fL [facility] RBC 4.24(L) 4.30 - 5.80 M/cumm [facility] MCV 87.5 81.3 - 96.4 fL [facility] MCH 28.3 27.1 - 33.3 pg [facility] MCHC 32.3 32.3 - 35.7 g/dL [facility] RDW CV 13.9 11.1 - 14.9 % [facility] RDW SD 45.0 35.7 - 48.1 fL [facility] NRBC abs 0.00 0.00 - 0.01 K/cumm [facility] Blood specimen (specimen) 05/26/2019 7:49 PM CDT 05/26/2019 8:13 PM CDT Jasper Canchola MD LAB BLOOD ORDERABLES Marianne l Result Performing Organization Address [facility]/ZIP Co de Phone Number [facility] [place] [address] * XR Chest 1 View - in [...] resection) 05/26/2019 12:30 PM CDT Narrative PATHOLOGY [facility] - 06/02/2019 11:23 PM CDT EPIC results best viewed via link to PDF [facility] [place] [address] SURGICAL PATHOLOGY REPORT FINAL WITH ADDENDUM Patient Name: ?? MP KULKARNI Gender: ??M : ??1965 (Age: 54) Address: ??[address] [place] [address] ??[address] Hospital #: ??[id number] Taken:05/26/2019 Received:05/26/2019 Reported: 06/02/2019 Patient Type: [facility] Inpatient ?? Service: Cardiothoracic Location: [place] [id number] Physician(s): ??Jasper Canchola M.D. KALPANA Lema M.D. [...] slides(and/or other material indicated in the diagnosis). Jeryr Weiss MD Report Electronically Reviewed and Signed [...] lung, with prior node biopsies showing metastases ([id number]). ??Operative procedure: Thoracotomy, right lower lobectomy, and [...] determined by the Surgical Pathology Department at [facility] as part of an ongoing senior quality technician program and in compliance with [...] determined by the Surgical Pathology Department of [facility]. ??It has not been cleared or approved by the U. S. Food and Drug Administration. IMAGES AND SCANNED DOCUMENTS, IF INCLUDED, ONLY VIEWABLE IN PDF VERSION OF REPORT Jasper Canchola MD LAB PATHOLOGY ORDERABLES Final Result PATHOLOGY [facility] 3rd Floor [place], [place] [phone] documented in this encounter Visit Diagnoses Diagnosis [...] Provider - Reason: Patient not available)1257 ([facility] Unhold - Provider: Automatic Transfer [...] toldto hold lovenox this PM.) 0930 ([facility] Hold - Provider: Automatic Transfer [...] mg/mL) infusion (premix) (CANCELED) Continuous dose: None, ASSEMBLER FITTER dose: 0.2 mg, ASSEMBLER FITTER lockout: 10 Minutes, 1 hour limit: Other [...] 05/27/2019 documented in this encounter Care Teams Seed Laboratory Technician Relationship Specialty Start Date End Date Clara Stanley PA [address] [place] [address] PCP - General Nurse Practitioner 04/05/19 Jasper Canchola MD [address] [place] [address] Surgeon Thoracic Surgery 05/11/19 Alexis Lopez MD [address] [address] Technology Education Teacher Pulmonary Disease 05/11/19 Kip Del Rio MD [address] [facility] [address] [place] [address] Medical Oncologist/Director Operations Hematology and Oncology 05/11/19 Jacob Flynn MD [address] [facility] [id number] [place] [address] Radiation Oncologist Radiation Oncology 05/25/19 documented as of this encounter
--- OUTSIDE RECORDS SUMMARY | 2024-03-02 04:25 | XMS_ITS | Encounter Summary ---
Author Organization [facility] Address [address] [facility] [address] [place] [address] Phone Care Team Providers Care Diesel Pile Hammer Operator Name Role Phone Clara Stanley Primary Care Provider + Jasper Canchola MD Unavailable [phone] Alexis Lopez MD Unavailable [phone] Kip Del Rio MD Unavailable [phone] Reason for Referral * Consultation (Routine) - Closed Specialty Diagnoses / Procedures Referred By Erik galdamez Referred To Contact Radiation Oncology Diagnoses Primary cancer of right lower lobe of lung (HCC) Kip Del Rio MD [address] [facility] [address] [place] [address] Phone: tel: fax: Violette Willis MD [address] [facility] [address] [place] [address] Phone: tel: fax: Referral ID Status Reason Start Date Expiration Date V isits Requested Visits Authorized [id number] Closed Specialty Services Required 05/12/2019 11/20/2020 1 1 Question Answer Is this referral for Breast Health Multi-Disciplinary Clinic? No Please select the performing region: [facility] [[id number]] Please select the performing department: [facility] RAD ONC [] To provider: VIOLETTE WILLIS [[id number]] # of visits: 1 Comments Newly diagnosed small cell lung cancer. Consult either 05/22, 05/23, or 05/24. Please call him with the appointment. TRONIC CONSOLE DISPLAY OPERATOR * Diagnostic Imaging (Routine) - Closed Specialty Diagnoses / Procedures Referred By Erik galdamez Referred To Contact Radiology Diagnoses Primary cancer of right lower lobe of lung (HCC) Procedures MRI Brain W WO Contrast Kip Del Rio MD [address] [facility] [address] [place] [address] Phone: tel: fax: [facility] [address] [place] [address] Referral ID Status Reason Start Date Expiration Date Visits Re quested Visits Authorized [id number] Closed 05/12/2019 08/10/2019 1 1 TRONIC CONSOLE DISPLAY OPERATOR Reason for Visit * Consultation (Routine) - Closed Specialty Diagnoses / Procedures Referred By Erik galdamez Referred To Contact Oncology Diagnoses Right lower lobe pulmonary nodule Alexis Lopez MD [address] [place] [address] Phone: tel: fax: Kip Del Rio MD [address] [facility] [address] [place] [address] Phone: tel: fax: Referral ID Status Reason Start Date Expiration Date V isits Requested Visits Authorized [id number] Closed Specialty Services Required 05/10/2019 11/18/2020 1 1 Encounter Details Date Type Department Care Team (Late st Contact Info) Description 05/12/2019 8:00 AM ELECTRONIC CONSOLE DISPLAY OPERATOR Office Visit [facility] Oncology [address] [place] [address] 7th [place] [address] [place] [address] Kip Del Rio MD [address] [facility] [address] [place] [address] Primary cancer of right lower lobe of lung (CMS/HCC) (Primary Dx); Right lower lobe pulmonary nodule Social History Tobacco Use Types Packs/Day Years Used Date Smoking Tobacco: Never Smokeless Tobacco: Never Tobacco Cessation:Counseling Given: No Sex and Gender Information Value Date Recorded Sex Assigned at Not on file Legal Sex Male 1:17 AM ELECTRONIC CONSOLE DISPLAY OPERATOR Gender Identity Not on file Sexual Orientation Straight 09/22/2019 8: 21 PM CDT documented as of this encounter Last Filed Vital Signs Vital Sign Reading Time Taken Comments Blood Pressure 146/77 05/12/2019 8:03 AM ELECTRONIC CONSOLE DISPLAY OPERATOR Pulse 76 05/12/2019 8:03 AM ELECTRONIC CONSOLE DISPLAY OPERATOR Temperature 36.8 ??C (98.2 ??F) 05/12/2019 8:03 AM CS T Respiratory Rate 16 05/12/2019 8:03 AM ELECTRONIC CONSOLE DISPLAY OPERATOR Oxygen Saturation 99% 05/12/2019 8:03 AM ELECTRONIC CONSOLE DISPLAY OPERATOR Inhaled Oxygen Concentration - - Weight 157.4 kg (347 lb) 05/12/2019 8:03 AM ELECTRONIC CONSOLE DISPLAY OPERATOR Height 190.5 cm (6' 3 ) 05/12/2019 8:03 AM ELECTRONIC CONSOLE DISPLAY OPERATOR Body Mass Index 43.37 05/12/2019 8:03 AM ELECTRONIC CONSOLE DISPLAY OPERATOR documented in this encounter Ordered Prescriptions Prescription [...] Kwaku Kulkarni Reason for consult: 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 History from Today's Visit Mr. 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 Briefly, he was seen in February for headaches at which time a CT brain was performed at [facility] as was a Brain MRI angiogram on [...] SUV max of 7.3. Dr. Cooley, a profiling machine set up operator tool, performed an EBUS with FNA biopsy on [...] a child) SOCIAL HISTORY: He lives in [place], [place]. He is is to Anna Kulkarni and they have three children all of whom live in the area. 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 He is a never smoker. He notes rare alcohol intake and denies recreational drug use. FAMILY HISTORY: Family History Problem Relation Age of Onset ??? Cancer Mother ??? Heart disease Father ??? Cancer Father ??? Cancer Sister His sister who is a nursing home smoker was recently diagnosed with lung [...] Imaging Reviewed Today CT Scan performed at [facility] on 04/22/19 IMPRESSION: 1. Indeterminate 1.3 cm lung nodule, right lower lobe, unchanged. 2. Gynecomastia. 3. Sub-6 mm lung nodules, right middle lobe, unchanged. ?? PET/CT 05/03/19 at [facility] IMPRESSION: ?? 1. Mildly FDG-avid right [...] MRI angio of the brain 03/24/2019 at [facility] ?? IMPRESSION: 1. No evidence of acute [...] presumed limited stage small cell lung cancer ([id number]). His ECOG performance status is 1. We [...] Del Rio MD at 05/12/2019 5:02 PM ELECTRONIC CONSOLE DISPLAY OPERATOR TRONIC CONSOLE DISPLAY OPERATOR TRONIC CONSOLE DISPLAY OPERATOR Associated attestation - Kip Del Rio MD - 05/12/2019 5:02 PM ELECTRONIC CONSOLE DISPLAY OPERATOR I have seen and examined Mr. Kwaku [...] Brain W WO Contrast (05/20/2019 3:11 PM ELECTRONIC CONSOLE DISPLAY OPERATOR) Anatomical Region Laterality Modality Head and Neck N/A Magnetic Resonan ce 05/20/2019 3:38 PM ELECTRONIC CONSOLE DISPLAY OPERATOR Impressions 05/20/2019 4:17 PM ELECTRONIC CONSOLE DISPLAY OPERATOR 1. ??No enhancing brain parenchymal lesions identified. [...] Wayne Vazquez M.D. Narrative 05/20/2019 4:17 PM ELECTRONIC CONSOLE DISPLAY OPERATOR EXAMINATION: Magnetic resonance imaging (MRI) of [...] Wayne Vazquez M.D. Kip Del Rio MD [facility] [place] PROCEDURES Final R esult documented in [...] 05/12/2019 documented in this encounter Care Teams Diesel Pile Hammer Operator Relationship Specialty Start Date End Date Clara Stanley PA [address] [place] [address] PCP - General Nurse Practitioner 04/05/19 Jasper Canchola MD [address] [place] [address] Surgeon Thoracic Surgery 05/11/19 Alexis Lopez MD [address] [address] Email Manager Pulmonary Disease 05/11/19 Kip Del Rio MD [address] [facility] [address] [place] [address] Medical Oncologist/Stage Rigger Hematology and Oncology 05/11/19 documented as of this encounter
--- OUTSIDE RECORDS SUMMARY | 2024-03-02 04:25 | XMS_ITS | Encounter Summary ---
Author Organization [facility] Address [address] [facility] [address] [place] [address] Care Team Providers Care Dj Instructor Name Role Phone Clara Stanley Primary Care Provider + Encounter Details Date Type Department Care Team (Late st Contact Info) Description 05/06/2019 Orders Only [facility] Pulmonology [address] [facility] [address] [place] [address] Blair Cooley MD [address] [facility] [address] [place] [address] Social History Tobacco Use Types Packs/Day Years Used Date Smoking Tobacco: Never Smokeless Tobacco: Never Sex and Gender Information Value Date Recorded Sex Assigned at Not on file Legal Sex Male 1:17 AM COMPUTER INSTALLER Gender Identity Not on file Sexual Orientation Straight 09/22/2019 8: 21 PM CDT documented as of this encounter Plan of Treatment Not on file documented as of this encounter Procedures Procedure Name Priority Date/Time Associated Diagnosis Comments CYTOLOGY Routine 05/06/2019 12:00 AM COMPUTER INSTALLER documented in this encounter Results * Cytology (05/06/2019 12:00 AM COMPUTER INSTALLER) 05/06/2019 05/06/2019 10: 40 AM COMPUTER INSTALLER Narrative 05/09/2019 4:46 PM COMPUTER INSTALLER [facility] Department of Pathology [address] [place], [place] [address] ?? Final Report Patient Name: ??KWAKU BULLOCK : ??1965 (Age: 53) Gender: ??M Address: ??[address] [place] [address] ??[address] Hospital #: ??[id number] Service: ??DEFAULT Location: ??[facility] Outpatient Surgery Patient Type: ??Same Day [...] on filedocumented in this encounter Care Teams Dj Instructor Relationship Specialty Start Date End Date Clara Stanley PA [address] [place] [address] PCP - General Nurse Practitioner 04/05/19 documented as of this encounter
--- OUTSIDE RECORDS SUMMARY | 2024-03-02 04:25 | XMS_ITS | Encounter Summary ---
Author Organization [facility] Address [address] [place] [address] Phone Care Team Providers Care Weight Loss Physician Name Role Phone Clara Stanley Primary Care Provider + Jasper Canchola MD Unavailable Alexis Lopez MD Unavailable [phone] Kip Del Rio MD Unavailable Encounter Details Date Type Department Care Team (Late st Contact Info) Description 05/12/2019 10:30 AM CRM MARKETING ANALYST Lab [facility] Oncology [address] [facility] 7th [place] [address] [place] [address] Kip Del Rio MD [address] [facility] [address] [place] [address] 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) Social History Tobacco Use Types Packs/Day Years Used Date Smoking Tobacco: Never Smokeless Tobacco: Never Sex and Gender Information Value Date Recorded Sex Assigned at Not on file Legal Sex Male 1:17 AM CRM MARKETING ANALYST Gender Identity Not on file Sexual Orientation Straight 09/22/2019 8: 21 PM CDT documented as of this encounter Plan of Treatment Not on file documented as of this encounter Visit Diagnoses Diagnosis 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
--- OUTSIDE RECORDS SUMMARY | 2024-03-02 04:25 | XMS_ITS | Encounter Summary ---
Author Organization [facility] Address [address] [place] [address] Care Team Providers Care Supervisor Education Name Role Phone Clara Stanley Primary Care Provider + Encounter Details Date Type Department Care Team (Latest Contact Info) Description 05/10/2019 10:34 AM COUNTER TOP ASSEMBLER - 05/10/2019 10:35 AM COUNTER TOP ASSEMBLER Hospital Encounter [facility] [address] [place] [address] Diagnosis unknown Discharge Disposition: Discharge to home or self care Social History Tobacco Use Types Packs/Day Years Used Date Smoking Tobacco: Never Smokeless Tobacco: Never Sex and Gender Information Value Date Recorded Sex Assigned at Not on file Legal Sex Male 1:17 AM COUNTER TOP ASSEMBLER Gender Identity Not on file Sexual [...] OUTSIDE CONSULT Routine 05/10/2019 1 0:34 AM COUNTER TOP ASSEMBLER Diagnosis unknown documented in this encounter Results * PET Outside Consult (05/10/2019 10:34 AM COUNTER TOP ASSEMBLER) Anatomical Region Laterality Modality N/A Nuclear Medicine 05/10/2019 12:0 2 PM COUNTER TOP ASSEMBLER Impressions 05/10/2019 2:22 PM COUNTER TOP ASSEMBLER 1. Mildly FDG-avid right lower lobe nodule; [...] images may or may not represent the [place] source data set and thus may contain changes that may lower the accuracy of this second-opinion interpretation. Dictated by: Rainer Kelley MD, PHD The radiology attending physician has personally reviewed this study, and had reviewed and/or edited this written report and agrees with it. Electronically signed by: Phyllis Linder M.D. Narrative 05/10/2019 2:22 PM COUNTER TOP ASSEMBLER EXAMINATION: RADIOLOGY CONSULTATION ON OUTSIDE IMAGING STUDY STUDY INITIALLY PERFORMED: 05/03/2019, images acquired at [facility]. ?? TYPE OF STUDY: FDG-PET/CT. The images available for review consisted of axial attenuation-corrected and uncorrected PET images and axial CT images. ??Oral contrast administration was not performed. Intravenous contrast administration was not performed. The total scanned area was skull base to the proximal thighs. The mean liver SUV (reported for manager quality compliance purposes) is 3.4. The study was interpreted on the [email or web address] workstation. The protocol was adequate to address [...] STUDY INITIALLY PERFORMED: 05/03/2019, images acquired at [facility]. TYPE OF STUDY: FDG-PET/CT. The images available for review consisted of axial attenuation-corrected and uncorrected PET images and axial CT images. Oral contrast administration was not performed. Intravenous contrast administration was not performed. The total scanned area was skull base to the proximal thighs. The mean liver SUV (reported for manager quality compliance purposes) is 3.4. The study was interpreted on the [email or web address] workstation. The protocol was adequate to address [...] images may or may not represent the [place] source data set and thus may contain [...] unknown documented in this encounter Care Teams Supervisor Education Relationship Specialty Start Date End Date Clara Stanley PA [address] [place] [address] PCP - General Nurse Practitioner 04/05/19 documented as of this encounter
--- OUTSIDE RECORDS SUMMARY | 2024-03-02 04:25 | XMS_ITS | Encounter Summary ---
Author Organization [facility] Healthcare Address [address] [place] [address] Care Team Providers Care Conventional Mortgage Underwriter Name Role Phone Clara Stanley Primary Care Provider + Jasper Canchola MD Unavailable Alexis Lopez MD Unavailable [phone] Kip Del Rio MD Unavailable [phone] Encounter Details Date Type Department Care Team (Latest Contact Info) Description 05/11/2019 1:47 PM STATE ATTORNEY - 05/11/2019 11:59 PM STATE ATTORNEY Hospital Encounter [facility] [address] [place] [address] Discharge Disposition: Discharge to home or self care Social History Tobacco Use Types Packs/Day Years Used Date Smoking Tobacco: Never Smokeless Tobacco: Never Sex and Gender Information Value Date Recorded Sex Assigned at Not on file Legal Sex Male 1:17 AM STATE ATTORNEY Gender Identity Not on file Sexual Orientation [...] MR OUTSIDE REFERENCE Routine 05/11/2019 1:47 PM STATE ATTORNEY Diagnosis unknown documented in this encounter Results * Neuro CT MR Outside Reference (05/11/2019 1:47 PM STATE ATTORNEY) Impressions [facility] - 05/11/2019 1:47 PM STATE ATTORNEY These images are for Reference purposes only and have not been reviewed by [facility] Radiology. ??There will be no report generated by a [facility] Radiologist. Narrative [facility] - 05/11/2019 1:47 PM STATE ATTORNEY EXAMINATION: ??Images For Reference Purposes Only us Kip Del Rio MD IMG CT PROCEDURES Final Re sult [facility] documented in this encounter Visit Diagnoses Not on filedocumented in this encounter Care Teams Conventional Mortgage Underwriter Relationship Specialty Start Date End Date Clara Stanley PA [address] [place] [address] PCP - General Nurse Practitioner 04/05/19 Jasper Canchola MD [address] [place] [address] Surgeon Thoracic Surgery 05/11/19 Alexis Lopez MD [address] [address] [employer] Research Associate Pulmonary Disease 05/11/19 Kip Del Rio MD [address] [facility] [address] [place] [address] Medical Oncologist/Electronics Assembler And Tester Hematology and Oncology 05/11/19 documented as of this encounter
--- OUTSIDE RECORDS SUMMARY | 2024-03-02 04:25 | XMS_ITS | Encounter Summary ---
Author Organization [facility] Address [address] [facility] [address] [place] [address] Phone Care Team Providers Care Stack Supervisor Name Role Phone Clara Stanley Primary Care Provider + Jasper Canchola MD Unavailable [phone] Alexis Lopez MD Unavailable Kip Del Rio MD Unavailable [phone] Encounter Details Date Type Department Care Team (Latest Contact Info) Description 05/11/2019 1:45 PM AIRCRAFT QUALITY CONTROL INSPECTOR Office Visit [facility] Surgery [facility] Advanced [facility] 8th [place] [address] [place] [address] Jasper Canchola MD [address] [facility] [id number] [place] [address] High grade neuroendocrine carcinoma (CMS/HCC) (Primary Dx) Social History Tobacco Use Types Packs/Day Years Used Date Smoking Tobacco: Never Smokeless Tobacco: Never Sex and Gender Information Value Date Recorded Sex Assigned at Not on file Legal Sex Male 1:17 AM AIRCRAFT QUALITY CONTROL INSPECTOR Gender Identity Not on file Sexual Orientation Straight 09/22/2019 8: 21 PM CDT documented as of this encounter Last Filed Vital Signs Vital Sign Reading Time Taken Comments Blood Pressure 143/83 05/11/2019 1:35 PM AIRCRAFT QUALITY CONTROL INSPECTOR Pulse 77 05/11/2019 1:35 PM AIRCRAFT QUALITY CONTROL INSPECTOR Temperature 36.7 ??C (98.1 ??F) 05/11/2019 1:35 PM CS T Respiratory Rate 16 05/11/2019 1:35 PM AIRCRAFT QUALITY CONTROL INSPECTOR Oxygen Saturation 98% 05/11/2019 1:35 PM AIRCRAFT QUALITY CONTROL INSPECTOR Inhaled Oxygen Concentration - - Weight 158.6 kg (349 lb 9.6 oz) 05/11/2019 1:35 PM AIRCRAFT QUALITY CONTROL INSPECTOR Height 190.5 cm (6' 3 ) 05/11/2019 1:35 PM AIRCRAFT QUALITY CONTROL INSPECTOR Body Mass Index 43.7 05/11/2019 1:35 PM AIRCRAFT QUALITY CONTROL INSPECTOR documented in this encounter Progress Notes * Stephanie Bautista, SERVICE SPRINKLER HELPER - 05/11/2019 1:45 PM CST [facility] Cardiothoracic Surgery New Patient Consultation / Evaluation [...] have severe headaches and sought evaluation at [facility] where a CT scan of the brain [...] lymphadenopathy. He was subsequently referred to local territory supervisor, Dr. Blair Cooley, where he underwent a [...] Judgment normal. RESULTS: 1.) Bronchoscopy report from [facility] dated 05/06/2019- - endobronchial ultrasound bronchoscope was advanced into the airways with transbronchial needle aspirates performed on level 7 (subcarinal) region. 2.) Cytology report from [facility] dated 05/06/2019- Diagnosis: Subcarinal lymph node, [...] and pelvis with IV contrast performed at [facility] was reviewed and consulted on at this institution on 05/10/2019- EXAMINATION: RADIOLOGY CONSULTATION ON OUTSIDE IMAGING STUDY ?? STUDY INITIALLY PERFORMED: 04/04/2019 and 04/22/2019 at [facility]. ?? TYPE OF STUDY: Multiple CT images [...] images may or may not represent the [place] source data set and thus may contain changes that may lower the accuracy of this second-opinion Interpretation. 4.) PET scan performed at [facility] dated 05/03/2019 was reviewed and consulted on at this center on 05/10/2019- EXAMINATION: RADIOLOGY CONSULTATION ON OUTSIDE IMAGING STUDY ?? STUDY INITIALLY PERFORMED: 05/03/2019, images acquired at [facility]. ?? TYPE OF STUDY: FDG-PET/CT. The images available for review consisted of axial attenuation-corrected and uncorrected PET images and axial CT images. Oral contrast administration was not performed. Intravenous contrast administration was not performed. The total scanned area was skull base to the proximal thighs. ?? The mean liver SUV (reported for quality assurance supervisor chassis purposes) is 3.4. The study was interpreted on the [employer] workstation. ?? The protocol was adequate to [...] images may or may not represent the ute source data set and thus may contain changes that may lower the accuracy of this second-opinion interpretation. 5.) MRI angio of the brain performed at [facility] dated 03/24/2019- IMPRESSION: 1. No evidence of [...] time of this dictation. TJ Grove MD Veneer Measurer completed using Med[employer] Direct speaking software, therefore, visual arts teacher variances may occur. RAFT QUALITY CONTROL INSPECTOR documented in this encounter Plan of Treatment Not on file documented as of this encounter Visit Diagnoses Diagnosis High grade neuroendocrine carcinoma (HCC)- Primary documented in this encounter Care Teams Stack Supervisor Relationship Specialty Start Date End Date Clara Stanley PA [address] [place] [address] PCP - General Nurse Practitioner 04/05/19 Jasper Canchola MD [address] [place] [address] Surgeon Thoracic Surgery 05/11/19 Alexis Lopez MD [address] [address] Major Gifts Officer Pulmonary Disease 05/11/19 Kip Del Rio MD [address] [facility] [address] [place] [address] Medical Oncologist/Biology Internship Hematology and Oncology 05/11/19 documented as of this encounter
--- OUTSIDE RECORDS SUMMARY | 2024-03-02 04:25 | XMS_ITS | Encounter Summary ---
Author Organization [facility] Address [address] [place] [address] Phone Care Team Providers Care Mosaic Layer Name Role Phone Clara Stanley Primary Care Provider + Jasper Canchola MD Unavailable [phone] Alexis Lopez MD Unavailable [phone] Kip Del Rio MD Unavailable [phone] Encounter Details Date Type Department Care Team (Late st Contact Info) Description 05/24/2019 Telephone [facility] Oncology [facility]ly [facility] 7th [place] [address] [place] [address] Imelda De Leon, KAMILA Social History Tobacco Use Types Packs/Day Years Used Date Smoking Tobacco: Never Smokeless Tobacco: Never Alcohol Use Standard Drinks/Week Comments Yes 0 (1 standard drink = 0.6 oz pur e alcohol) social Sex and Gender Information Value Date Recorded Sex Assigned at Not on file Legal Sex Male 1:17 AM FISH HATCHERY WORKER Gender Identity Not on file Sexual [...] see Dr. Flynn on 05/25/[address] Del Rio on05/26/19 to discuss his treatment plan. documented in this encounter Plan of Treatment Not on file documented as of this encounter Visit Diagnoses Not on filedocumented in this encounter Care Teams Mosaic Layer Relationship Specialty Start Date End Date Clara Stanley PA [address] [place] [address] PCP - General Nurse Practitioner 04/05/19 Jasper Canchola MD [address] [place] [address] Surgeon Thoracic Surgery 05/11/19 Alexis Lopez MD [address] [address] Jumpbasting Lining Baster Pulmonary Disease 05/11/19 Kip Del Rio MD [address] [facility] [address] [place] [address] Medical Oncologist/Pharmaceutical Detailer Hematology and Oncology 05/11/19 documented as of this encounter
--- OUTSIDE RECORDS SUMMARY | 2024-03-02 04:25 | XMS_ITS | Encounter Summary ---
Author Organization [facility] Address [address] [place] [address] Care Team Providers Care Box Packer Name Role Phone Clara Stanley Primary Care Provider + Jasper Canchola MD Unavailable [phone] Alexis Lopez MD Unavailable [phone] Kip Del Rio MD Unavailable [phone] Reason for Referral * Diagnostic Imaging (Routine) - Closed Specialty Diagnoses / Procedures Referred By Contac t Referred To Contact Radiology Diagnoses Primary cancer of right lower lobe of lung (HCC) Procedures MRI Brain W WO Contrast Kip Del Rio MD [address] [address] Phone: tel: fax: [facility] [address] [place] [address] Referral ID Status Reason Start Date Expiration Date Visits Re quested Visits Authorized [id number] Closed 05/12/2019 08/10/2019 1 1 LATION BOARD BACK TENDER Reason for Visit * Diagnostic Imaging (Routine) - Closed Specialty Diagnoses / Procedures Referred By Contac t Referred To Contact Radiology Diagnoses Primary cancer of right lower lobe of lung (HCC) Procedures MRI Brain W WO Contrast Kip Del Rio MD [address] [address] Phone: tel: fax: [address] [address] Referral ID Status Reason Start Date Expiration Date Visits Re quested Visits Authorized [id number] Closed 05/12/2019 08/10/2019 1 1 Encounter Details Date Type Department Care Team (Latest Contact Info) Description 05/20/2019 1:51 PM INSULATION BOARD BACK TENDER - 05/20/2019 11:59 PM INSULATION BOARD BACK TENDER Hospital Encounter [facility] Radiology [address] [place] [address] Kip Del Rio MD [address] [facility] [address] [place], [place] [id number] Primary cancer of right lower lobe of [...] on file Legal Sex Male 1:17 AM INSULATION BOARD BACK TENDER Gender Identity Not on file Sexual [...] Read Routine (OP Routine) 05/20/2019 3:11 PM INSULATION BOARD BACK TENDER Primary cancer of right lower lobe of lung (CMS/HCC) documented in this encounter Results * MRI Brain W WO Contrast (05/20/2019 3:11 PM INSULATION BOARD BACK TENDER) Anatomical Region Laterality Modality Head and Neck N/A Magnetic Resonan ce 05/20/2019 3:38 PM INSULATION BOARD BACK TENDER Impressions 05/20/2019 4:17 PM INSULATION BOARD BACK TENDER 1. ??No enhancing brain parenchymal lesions identified. [...] Wayne Vazquez M.D. Narrative 05/20/2019 4:17 PM INSULATION BOARD BACK TENDER EXAMINATION: Magnetic resonance imaging (MRI) of the [...] For 2 doses Given 05/20/2019 3:08 PM INSULATION BOARD BACK TENDER 15 mL gadoterate meglumine (DOTAREM) 0.5 mmol/mL injection 15 mL 15 mL, intravenous, Once in imaging, contrast, Starting on Thu05/20/19 at 1507, For 1 dose Given 05/20/2019 3:08 PM INSULATION BOARD BACK TENDER 15 mL documented in this encounter Orders Medications Ordered That Vikram ht Not Have Been Administered Count Last Ordered Date First Ordered Date gadoterate meglumine (DOTARE M) 0.5 mmol/mL injection 15 mL 1 05/20/2019 documented in this encounter Care Teams Box Packer Relationship Specialty Start Date End Date Clara Stanley PA [address] [place] [address] PCP - General Nurse Practitioner 04/05/19 Jasper Canchola MD [address] [place] [address] Surgeon Thoracic Surgery 05/11/19 Alexis Lopez MD 46[address] [facility] [address] [address] Superintendent Pressure Pulmonary Disease 05/11/19 Kip Del Rio MD 49[address] [facility] [address] [place] [address] Medical Oncologist/Event Technician Hematology and Oncology 05/11/19 documented as of this encounter
--- OUTSIDE RECORDS SUMMARY | 2024-03-02 04:25 | XMS_ITS | Encounter Summary ---
Author Organization [facility] Care Team Providers Care Frontload Driver Name Role Phone Clara Stanley Primary Care Provider + Jasper Canchola MD Unavailable [phone] Alexis Lopez MD Unavailable [phone] Kip Del Rio MD Unavailable [phone] Encounter Details Date Type Department Care Team (Latest Contact Info) Description 05/11/2019 Travel Social History Tobacco Use Types Packs/Day Years Used Date Smoking Tobacco: Never Smokeless Tobacco: Never Sex and Gender Information Value Date Recorded Sex Assigned at Not on file Legal Sex Male 1:17 AM ELECTRONIC ENGINEERING TECHNICIAN Gender Identity Not on file Sexual Orientation Straight 09/22/2019 8: 21 PM CDT documented as of this encounter Plan of Treatment Not on file documented as of this encounter Visit Diagnoses Not on filedocumented in this encounter Care Teams Frontload Driver Relationship Specialty Start Date End Date Clara Stanley PA [facility] [place] [address] PCP - General Nurse Practitioner 04/05/19 Jasper Canchola MD [address] [place] [address] Surgeon Thoracic Surgery 05/11/19 Alexis Lopez MD [address] [place] [address] Bodily Injury Adjuster Pulmonary Disease 05/11/19 Kip Del Rio MD 4921 [facility] [address] [place] [address] Medical Oncologist/Jewelry Sorter Hematology and Oncology 05/11/19 documented as of this encounter
--- OUTSIDE RECORDS SUMMARY | 2024-03-02 04:25 | XMS_ITS | Encounter Summary ---
Author Organization [facility] Address [address] [place] [address] Care Team Providers Care Senior Catering Sales Manager Name Role Phone Clara Stanley Primary Care Provider + Encounter Details Date Type Department Care Team (Latest Contact Info) Description 05/10/2019 10:37 AM ACCOUNT DIRECTOR - 05/10/2019 11:57 AM ACCOUNT DIRECTOR Hospital Encounter [facility] Radiology [facility] [address] [place] [address] Diagnosis unknown Discharge Disposition: Discharge to home or self care Social History Tobacco Use Types Packs/Day Years Used Date Smoking Tobacco: Never Smokeless Tobacco: Never Sex and Gender Information Value Date Recorded Sex Assigned at Not on file Legal Sex Male 1:17 AM ACCOUNT DIRECTOR Gender Identity Not on file Sexual [...] BODY OUTSIDE CONSULT Routine 05/10/2019 10:37 AM ACCOUNT DIRECTOR Diagnosis unknown documented in this encounter Results * CT Body Outside Consult (05/10/2019 10:37 AM ACCOUNT DIRECTOR) Anatomical Region Laterality Modality Body N/A Computed Tomogra phy 05/10/2019 11:2 0 AM ACCOUNT DIRECTOR Impressions 05/10/2019 12:51 PM ACCOUNT DIRECTOR Lobulated right lower lobe nodule with associated [...] images may or may not represent the lone pine source data set and thus may contain changes that may lower the accuracy of this second-opinion interpretation. Dictated by: Wong Butts M.D. The radiology attending physician has personally reviewed this study, and had reviewed and/or edited this written report and agrees with it. Electronically signed by: Alexander Ceron M.D., MPH Narrative 05/10/2019 12:51 PM ACCOUNT DIRECTOR EXAMINATION: RADIOLOGY CONSULTATION ON OUTSIDE IMAGING STUDY STUDY INITIALLY PERFORMED: 04/04/2019 and 04/22/2019 at [facility]. TYPE OF STUDY: Multiple CT images of [...] STUDY INITIALLY PERFORMED: 04/04/2019 and 04/22/2019 at [facility]. TYPE OF STUDY: Multiple CT images of [...] images may or may not represent the [place] source data set and thus may contain [...] unknown documented in this encounter Care Teams Senior Catering Sales Manager Relationship Specialty Start Date End Date Clara Stanley PA [address] [place] [address] PCP - General Nurse Practitioner 04/05/19 documented as of this encounter
--- OUTSIDE RECORDS SUMMARY | 2024-03-02 04:25 | XMS_ITS | Encounter Summary ---
Author Organization [facility] Address [address] [place] [address] Care Team Providers Care Motor Grader Rough Grade Name Role Phone Clara Stanley Primary Care Provider + Jasper Harris MD Unavailable Alexis Lopez MD Unavailable Kip Del Rio MD Unavailable Encounter Details Date Type Department Care Team (Late st Contact Info) Description 05/19/2019 7:30 AM BODY REPAIRER - 05/19/2019 9:45 AM BODY REPAIRER Surgery [facility] Operating Room 1 [place] [address] Jasper Harris MD [id number] [place], [place] [address] MEDIASTINOSCOPY CERVICAL Surgery Details Date/Time Status Location [...] on file Legal Sex Male 1:17 AM BODY REPAIRER Gender Identity Not on file Sexual Orientation Straight 09/22/2019 8: 21 PM CDT documented as of this encounter Last Filed Vital Signs Vital Sign Reading Time Taken Comments Blood Pressure 118/62 05/19/2019 9:40 AM BODY REPAIRER Pulse 72 05/19/2019 9:45 AM BODY REPAIRER Temperature 36.4 ??C (97.5 ??F) 05/19/2019 9:30 AM CS T Respiratory Rate 16 05/19/2019 9:45 AM BODY REPAIRER Oxygen Saturation 97% 05/19/2019 9:45 AM BODY REPAIRER Inhaled Oxygen Concentration - - Weight - - Height - - Body Mass Index - - documented in this encounter Discharge Instructions * Discharge Instructions* Khadijah Barnett RN - 05/19/2019 10:21 AM BODY REPAIRER Pulmonary Nodules WHAT YOU NEED TO KNOW: [...] healthcare provider will refer you to a supervisor properties. Your supervisor properties will monitor your nodules for any change [...] before you use these products. ?? 2017 [employer] Information is for End User's use only and may not be sold, redistributed or otherwise used for commercial purposes. All illustrations and images included in CareNotes?? are the copyrighted property of [employer]. or [employer]. The above information is an pathology laboratory aides teacher only. It is not intended as medical advice for individual conditions or treatments. Talk to your doctor, nurse or pharmacist before following any medical regimen to see if it is safe and effective for you. Dr. Harris will speak with the patient about follow up before he leaves REPAIRER * Attachments The following attachments cannot be sent through Care Everywhere. * Mediastinoscopy (Discharge Care) (Marshallese) documented in this encounter Medications at Time [...] an acceptable riskfor : Procedure(s): MEDIASTINOSCOPY CERVICAL REPAIRER Source Note - Elisabeth Kellogg NP - 2019 1:16 PM BODY REPAIRER Images from the original note were not included. Center for Preoperative Assessment and Planning Preoperative Evaluation Record Evaluation type/location: [facility] Planned procedure site: [facility] (Pods 2/3/5/STAFF ATTORNEY) Date: 05/13/19 Anesthesia Evaluation Mp Kulkarni is [...] and grade I/ Negative for peripheral edema (Bland LSB) Pulmonary Exam: LCTA, bilat EENT Exam: [...] Total Score: 4 Enzo index score: 100 REPAIRER REPAIRER documented in this encounter Miscellaneous Notes * Perioperative Nursing Note - Khadijah Barnett RN - 05/19/2019 11:[address] Harris here and spoke to family. Questions answered. REPAIRER * Perioperative Nursing Note - Rickey Booker RN - 05/19/2019 8:51 AM BODY REPAIRER SIX SPECIMEN TAKEN TO PATHOLOGY BY DR. HARRIS REPAIRER * Brief Op Note - Ama Carpenter MD - 05/19/2019 8:02 AM CST Operative Progress Note Surgical Team: Surgeon(s) and Role: * Jasper Harris MD - Primary * Myrtle Haji MD - Resident - Observing * Ama Carpenter MD - Resident - Observing Anesthesiologist: Ishan Pitts MD Hydroelectric Station Operator Chief: Adalid Almonte MD Chaser Apprentice: Alexander Sanabria RN; Mp Wakefield RN Scrub: Chi Ordonez RN Chaser Apprentice Second: Rickey Booker RN DATE OF SURGERY [...] Jasper Harris MD at 05/19/2019 9:50 AM BODY REPAIRER REPAIRER REPAIRER REPAIRER * Perioperative Nursing Note - Carisa Leon RN - 05/19/2019 7:01 AM CST Pt arrived to pre-op, changed into gown. Placed on monitor. IV started, fluids infusing per order. H&P completed & signed by attending. Consents complete. Pt resting, awaiting OR. Will monitor. 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 Operative Procedure Cervical mediastinoscopy. Surgeon Jasper Harris MD Remotely Piloted Vehicle Controller Ama Carpenter MD Anesthesia General. Clinical Note [...] no complications noted. Job ID/VF Job ID: [id number] REPAIRER documented in this encounter Plan of Treatment Not on file documented as of this encounter Procedures Procedure Name Priority Date/Time Associated Diagnosis Comments CYTOLOGY Routine 05/19/2019 8:33 AM BODY REPAIRER Lung nodule SURGICAL PATHOLOGY Routine 05/19/2019 8: 16 AM BODY REPAIRER Lung nodule MEDIASTINOSCOPY 05/19/2019 7:27 AM BODY REPAIRER Lung nodule documented in this encounter Results * Cytology (05/19/2019 8:33 AM BODY REPAIRER) Fluid (Mediastinum (Cytology)) 05/19/2019 8:33 AM BODY REPAIRER Comment:MEDIASTINAL FLUID Narrative PATHOLOGY [facility] - 05/25/2019 1:42 PM CDT EPIC results best viewed via link to PDF [facility] Ama Stark [facility] [place] [address] CYTOPATHOLOGY REPORT FINAL Patient Name: ?? MP KULKARNI Gender: ??M : ??1965 (Age: 54) Address: ??[address] [place] [address] Hospital #: ??[id number] Taken:05/19/2019 Received:05/19/2019 Reported: 05/25/2019 Patient Type: [facility] SDS ?? Service: Surgery Location: [facility] Physician(s): ??Tara Ayers PA FINAL DIAGNOSIS A. [...] Please refer to the current resection specimen ([id number]) for further characterization. ?? rcwp/05/25/2019 10:17 By [...] determined by the Surgical Pathology Department at [facility] as part of an ongoing quality lab assoc program and in compliance with federally mandated [...] determined by the Surgical Pathology Department of [facility]. ??It has not been cleared or approved by the U. S. Food and Drug Administration. Jasper Harris MD LAB CYTOLOGY ORDERABLES F inal Result PATHOLOGY [facility] 3rd Floor [place], [place] [phone] * Surgical pathology (05/19/2019 8:16 AM BODY REPAIRER) Tissue (Lymph Node, Single excision) 05/19/2019 8:16 AM BODY REPAIRER Tissue (Lymph Node, Single excision) 05/19/2019 8:21 AM BODY REPAIRER Tissue (Lymph Node, Single excision) 05/19/2019 8:26 AM BODY REPAIRER Tissue (Lymph Node, Single excision) 05/19/2019 8:44 AM BODY REPAIRER Tissue (Lymph Node, Single excision) 05/19/2019 8:47 AM BODY REPAIRER Narrative PATHOLOGY [facility] - 05/25/2019 3:46 PM CDT EPIC results best viewed via link to PDF [facility] Ama Stark [facility] [place] [address] SURGICAL PATHOLOGY REPORT FINAL Patient Name: ?? MP KULKARNI Gender: ??M : ??1965 (Age: 54) Address: ??[address] [facility] [place], [place] ??[address] Hospital #: ??[id number] Taken:05/19/2019 Received:05/19/2019 Reported: 05/25/2019 Patient Type: [facility] SDS ?? Service: Surgery Location: [facility] Physician(s): ??Tara Ayers PA Diagnosis: A. ??Lymph [...] he only wanted a small portion frozen. ??Front Desk Person fragments frozen as CFR1. ??Rest for permanent. 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. ??It has not been cleared or approved by the U. S. Food and Drug Administration. IMAGES AND SCANNED DOCUMENTS, IF INCLUDED, ONLY VIEWABLE IN PDF VERSION OF REPORT Jasper Harris MD LAB PATHOLOGY ORDERABLES Final Result PATHOLOGY [facility] 3rd Floor [place], [place] [phone] documented in this encounter Visit Diagnoses Diagnosis [...] at 0717, Intra-Op Given 05/19/2019 8:58 AM BODY REPAIRER 10 mL Surgical Site dexMEDEtomidine (PRECEDEX) injection As needed, Starting on Priscila 05/19/19 at 0717, Intra-Op Given 05/19/2019 7:17 AM BODY REPAIRER 100 mcg Surgical Site heparin 5,000 unit/mL injection 5,000 Units 5,000 Units, subcutaneous, Once, On Priscila 05/19/19 at 0645, For 1 dose, Pre-Op, Indications: Deep Vein Thrombosis PreventionIndications:D eep Vein Thrombosis Prevention Given 05/19/2019 6:21 AM BODY REPAIRER 5,000 Units Left Lower Abdomen Lactated Ringer's (LR) infusion 30 mL/hr, intravenous, Continuous, Starting on Priscila 05/19/19 at 0645, Pre-Op New Bag 05/19/2019 7:27 AM BODY REPAIRER New Bag 05/19/2019 6:20 AM BODY REPAIRER 30 mL/hr 30 mL/hr documented in this encounter Active and Recently Administered Medications Times are shown in BODY REPAIRER. Scheduled Medication Order 05/17/2019 05/18/2019 05/19/2019 acetaminophen [...] 07/2019 documented in this encounter Care Teams Motor Grader Rough Grade Relationship Specialty Start Date End Date Clara Stanley PA [address] [place] [address] PCP - General Nurse Practitioner 04/05/19 Jasper Harris MD [address] [place] [address] Surgeon Thoracic Surgery 05/11/19 Alexis Lopez MD [address] [address] Compliance Spec Pulmonary Disease 05/11/19 Kip Del Rio MD [address] [facility] [address] [place] [address] Medical Oncologist/Acute Care Nurse Practitioner Hematology and Oncology 05/11/19 documented as of this encounter
--- OUTSIDE RECORDS SUMMARY | 2024-03-02 04:25 | XMS_ITS | Encounter Summary ---
Author Organization [facility] Address [address] [place] [address] Care Team Providers Care Metallographic Technician Name Role Phone Clara Stanley Primary Care Provider + Jasper Canchola MD Unavailable Alexis Lopez MD Unavailable [phone] Kip Del Rio MD Unavailable Jacob Flynn MD Unavailable Encounter Details Date Type Department Care Team (Late st Contact Info) Description 05/26/2019 9:20 AM CDT Anesthesia Event [facility] Operating Room 1 [place] [address] Taj Perkins MD [address] [facility] [address] [place] [address] Anesthesia Record Procedure Summary Procedure Name Responsible [...] Ne ck; 02/16/24 (Retired LDA, Removed/Completed by Bee Ware with LDA Utility); 1213 (Retired LDA, Removed/Completed by [employer] with LDA Utility) 05/19/19 0633 by Rickey [...] ght; Chest; 12/03/24 (Retired LDA, Removed/Completed by [facility] with LDA Utility); 1213 (Retired LDA, Removed/Completed by [facility] with LDA Utility) 05/26/19 0916 by [...] on file Legal Sex Male 1:17 AM SPRAY GUN REPAIRER Gender Identity Not on file Sexual [...] Procedure Summary Date: 05/26/19 Room / Location: [facility] OR POD 3 ROOM 304 / [facility] OR POD 3 Anesthesia Start: 919 Anesthesia [...] Procedure Name Priority Date/Time Associated Diagnosis Comments OR AN PROCEDURE PLACEHOLDER Routine 05/26/2019 10:10 AM CDT OR AN PROCEDURE PLACEHOLDER Routine 05/26/2019 10:08 AM CDT OR AN PROCEDURE PLACEHOLDER Routine 05/26/2019 10:08 AM CDT OR AN PROCEDURE PLACEHOLDER Routine 05/26/2019 10:07 AM CDT OR AN ELECTIVE ENDOTRACHEAL AIRWAY Routine 05/26/2019 10:07 AM CDT documented in this encounter Results * OR AN PROCEDURE PLACEHOLDER (05/26/2019 10:10 AM CDT) Narrative Taj Perkins MD - 05/26/2019 10:10 AM CDT Taj Perknis MD ? 05/26/2019 10:10 AM Peripheral IV [...] Perkins MD ANESTHESIA ORDERABLES Final Result * OR AN PROCEDURE PLACEHOLDER (05/26/2019 10:08 AM CDT) [...] Perkins MD ANESTHESIA ORDERABLES Final Result * OR AN PROCEDURE PLACEHOLDER (05/26/2019 10:08 AM CDT) [...] Perkins MD ANESTHESIA ORDERABLES Final Result * OR AN ELECTIVE ENDOTRACHEAL AIRWAY, OR AN PROCEDURE PLACEHOLDER (05/26/2019 10:07 AM CDT) [...] 05/26/2019 documented in this encounter Care Teams Metallographic Technician Relationship Specialty Start Date End Date lCara Stanley PA [address] [place] [address] PCP - General Nurse Practitioner 04/05/19 Jasper Canchola MD [address] [place] [address] Surgeon Thoracic Surgery 05/11/19 Alexis Lopez MD [address] [address] Grid Maker Pulmonary Disease 05/11/19 Kip Del Rio MD [address] [facility] [address] [place] [address] Medical Oncologist/Mortgage Manager Hematology and Oncology 05/11/19 Jacob Flynn MD [address] [place] [address] Radiation Oncologist Radiation Oncology 05/25/19 documented as of this encounter
--- OUTSIDE RECORDS SUMMARY | 2024-03-02 04:25 | XMS_ITS | Encounter Summary ---
Author Organization [facility] Healthcare Address [address] [place] [address] Care Team Providers Care Fuel Storage Technician Name Role Phone Clara Stanley Primary Care Provider + Jasper Canchola MD Unavailable Alexis Lopez MD Unavailable [phone] Kip Del Rio MD Unavailable Encounter Details Date Type Department Care Team (Latest Contact Info) Description 05/12/2019 2:57 PM WATER PUMP SERVICER - 05/12/2019 11:59 PM WATER PUMP SERVICER Hospital Encounter [facility] [address] [place] [address] Discharge Disposition: Discharge to home or self care Social History Tobacco Use Types Packs/Day Years Used Date Smoking Tobacco: Never Smokeless Tobacco: Never Sex and Gender Information Value Date Recorded Sex Assigned at Not on file Legal Sex Male 1:17 AM WATER PUMP SERVICER Gender Identity Not on file Sexual [...] MR OUTSIDE REFERENCE Routine 05/12/2019 2:57 PM WATER PUMP SERVICER Diagnosis unknown documented in this encounter Results * Neuro CT MR Outside Reference (05/12/2019 2:57 PM WATER PUMP SERVICER) Impressions RAD_PACS_[facility]J - 05/12/2019 2:57 PM WATER PUMP SERVICER These images are for Reference purposes only and have not been reviewed by [facility] Radiology. ??There will be no report generated by a [facility] Radiologist. Narrative RAD_PACS_BJ - 05/12/2019 2:57 PM WATER PUMP SERVICER EXAMINATION: ??Images For Reference Purposes Only us Kip Del Rio MD IMG CT PROCEDURES Final Re sult RAD_PACS_[facility] documented in this encounter Visit Diagnoses Not on filedocumented in this encounter Care Teams Fuel Storage Technician Relationship Specialty Start Date End Date Clara Stanley PA [address] [place] [address] PCP - General Nurse Practitioner 04/05/19 Jasper Canchola MD [facility] [place] [address] Surgeon Thoracic Surgery 05/11/19 Alexis Lopez MD [address] [facility] [address] [address] Film Tests Checker Pulmonary Disease 05/11/19 Kip Del Rio MD [address] [facility] [address] [place] [address] Medical Oncologist/Vehicle Delivery Worker Hematology and Oncology 05/11/19 documented as of this encounter
--- OUTSIDE RECORDS SUMMARY | 2024-03-02 04:25 | XMS_ITS | Encounter Summary ---
Author Organization [facility] Address [address] [place] [address] Care Team Providers Care Motor Coach Chauffeur Name Role Phone Clara Stanley Primary Care Provider + Jasper Canchola MD Unavailable Alexis Lopez MD Unavailable Kip Del Rio MD Unavailable Jacob Flynn MD Unavailable Encounter Details Date Type Department Care Team (Late st Contact Info) Description 05/30/2019 10:07 AM CDT Anesthesia Event [facility] Operating Room 1 [place] [address] Sam Castro MD [address] [place] [address] Robert Payton MD [address] [place] [address] Anesthesia Record Procedure Summary Procedure Name Responsible [...] Ne ck; 02/16/24 (Retired LDA, Removed/Completed by [facility] with LDA Utility); 1213 (Retired LDA, Removed/Completed by [facility] with LDA Utility) 05/19/19 0633 by Rickey Booker RN 02/16/24 1213 by Discharge Provider, Automatic RETIRED Surgical Site 05/26/19; 0916; Right; Chest; 02/16/24 (Retired LDA, Removed/Completed by [facility] with LDA Utility); 1213 (Retired LDA, Removed/Completed by [facility] with LDA Utility) 05/26/19 0916 by [...] on file Legal 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 Gender Identity Not on file Sexual [...] Procedure Summary Date: 05/30/19 Room / Location: [facility] OR POD 3 ROOM [facility] / [facility] OR POD 3 Anesthesia Start: 1007 Anesthesia [...] - patient participated Level of consciousness: 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 Has follow-up with Cardiology: Alejandrina ([place], [place])) Pertinent negatives: chronic pain; chronic opioid [...] Attending: Re: Pt with Hyponatremia (last serum Iaubtc=424 on 05/30/2019 (was 127 3 days ago). [...] Medication protocol when under care of a ARCADE TECHNICIAN Planned anesthesia: General Team communication plan: LMA Induction: Induction: intravenous. Informed Consent: Discussed plan with ARCADE TECHNICIAN. Anesthesia plan and risks discussed with patient. [...] Procedure Name Priority Date/Time Associated Diagnosis Comments AK AN PROCEDURE PLACEHOLDER Routine 05/30/2019 10:26 AM CDT AK AN ELECTIVE SUPRAGLOTTIC AIRWAY Routine 05/30/2019 10:26 AM CDT documented in this encounter Results * AK AN ELECTIVE SUPRAGLOTTIC AIRWAY, AK AN PROCEDURE PLACEHOLDER (05/30/2019 10:26 AM CDT) [...] mg documented in this encounter Care Teams Motor Coach Chauffeur Relationship Specialty Start Date End Date Clara Stanley PA [address] [place] [address] PCP - General Nurse Practitioner 04/05/19 Jasper Canchola MD [address] [place] [address] Surgeon Thoracic Surgery 05/11/19 Alexis Lopez MD [address] [facility] [address] [address] Solar Pool Heating Installer Pulmonary Disease 05/11/19 Kip Del Rio MD [address] [facility] [address] [place] [address] Medical Oncologist/Teacher Selection Specialist Hematology and Oncology 05/11/19 Jacob Flynn MD [address] [facility] [address] [place] [address] Radiation Oncologist Radiation Oncology 05/25/19 documented as of this encounter
--- OUTSIDE RECORDS SUMMARY | 2024-03-02 04:25 | XMS_ITS | Encounter Summary ---
Author Organization [facility] Healthcare Address [address] [place] [address] Care Team Providers Care Bottom Sander Name Role Phone Clara Stanley Primary Care Provider + Jasper Canchola MD Unavailable Alexis Lopez MD Unavailable [phone] Kip Del Rio MD Unavailable [phone] Encounter Details Date Type Department Care Team (Latest Contact Info) Description 05/12/2019 2:56 PM DRAFTER (CAD) ELECTRONIC Hospital Encounter [facility]) [address] [place] [address] Discharge Disposition: Discharge to home or self care Social History Tobacco Use Types Packs/Day Years Used Date Smoking Tobacco: Never Smokeless Tobacco: Never Sex and Gender Information Value Date Recorded Sex Assigned at Not on file Legal Sex Male 1:17 AM DRAFTER (CAD) ELECTRONIC Gender Identity Not on file Sexual [...] MR OUTSIDE REFERENCE Routine 05/12/2019 2:56 PM DRAFTER (CAD) ELECTRONIC Diagnosis unknown documented in this encounter Results * Neuro CT MR Outside Reference (05/12/2019 2:56 PM DRAFTER (CAD) ELECTRONIC) Impressions RAD_PACS[facility] - 05/12/2019 2:56 PM DRAFTER (CAD) ELECTRONIC These images are for Reference purposes only and have not been reviewed by [facility] Radiology. ??There will be no report generated by a [facility] Radiologist. Narrative RAD_PACS_[facility] - 05/12/2019 2:56 PM DRAFTER (CAD) ELECTRONIC EXAMINATION: ??Images For Reference Purposes Only us Kip Del Rio MD IMG CT PROCEDURES Final Re sult [facility]ACS[facility] documented in this encounter Visit Diagnoses Not on filedocumented in this encounter Care Teams Bottom Sander Relationship Specialty Start Date End Date Clara Stanley PA [address] [place] [address] PCP - General Nurse Practitioner 04/05/19 Jasper Canchola MD [address] [place] [address] Surgeon Thoracic Surgery 05/11/19 Alexis Lopez MD [address] [address] Finish Machine Tender Pulmonary Disease 05/11/19 Kip Del Rio MD [address] [facility] [address] [place] [address] Medical Oncologist/Sheepskin Pickler Hematology and Oncology 05/11/19 documented as of this encounter
--- OUTSIDE RECORDS SUMMARY | 2024-03-02 04:25 | XMS_ITS | Encounter Summary ---
Author Organization [facility] Healthcare Address [address] [place] [address] Care Team Providers Care Outpatient Program Coordinator Name Role Phone Clara Stanley Primary Care Provider + Encounter Details Date Type Department Care Team (Latest Contact Info) Description 05/10/2019 11:58 AM MOLD CAR PUSHER - 05/10/2019 11:59 AM MOLD CAR PUSHER Hospital Encounter [facility]iology [facility] [address] [place] [address] Discharge Disposition: Discharge to home or self care Social History Tobacco Use Types Packs/Day Years Used Date Smoking Tobacco: Never Smokeless Tobacco: Never Sex and Gender Information Value Date Recorded Sex Assigned at Not on file Legal Sex Male 1:17 AM MOLD CAR PUSHER Gender Identity Not on file Sexual Orientation [...] OF OUTSIDE FILMS Routine 05/10/2019 11:58 AM MOLD CAR PUSHER Diagnosis unknown documented in this encounter Results * XR Outside Reference (05/10/2019 11:58 AM MOLD CAR PUSHER) Impressions RAD_PACS_[facility] - 05/10/2019 11:58 AM MOLD CAR PUSHER These images are for Reference purposes only and have not been reviewed by [facility] Radiology. ??There will be no report generated by a [facility] Radiologist. Narrative RAD_PACS_[facility]J - 05/10/2019 11:58 AM MOLD CAR PUSHER EXAMINATION: ??Images For Reference Purposes Only us Jasper Canchola MD IMG XR PROCEDURES Final R esult RAD_[facility]ACS[facility] documented in this encounter Visit Diagnoses Not on filedocumented in this encounter Care Teams Outpatient Program Coordinator Relationship Specialty Start Date End Date Clara Stanley PA [address] [place] [address] PCP - General Nurse Practitioner 04/05/19 documented as of this encounter
--- OUTSIDE RECORDS SUMMARY | 2024-03-02 04:25 | XMS_ITS | Encounter Summary ---
Author Organization [facility] Address [address] [place] [address] Phone Care Team Providers Care Data Collection Associate Name Role Phone Clara Stanley Primary Care Provider + Jasper Canchola MD Unavailable Alexis Lopez MD Unavailable Kip Del Rio MD Unavailable [phone] Jacob Flynn MD Unavailable Encounter Details Date Type Department Care Team (Late st Contact Info) Description 05/25/2019 Orders Only [facility] Pulmonary [address] [facility] 8th [place] [address] [place] [address] Britt Leroy RMA Social History Tobacco Use Types Packs/Day Years Used Date Smoking Tobacco: Never Smokeless Tobacco: Never Alcohol Use Standard Drinks/Week Comments Yes 0 (1 standard drink = 0.6 oz pur e alcohol) social Sex and Gender Information Value Date Recorded Sex Assigned at Not on file Legal 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 Gender Identity Not on file Sexual Orientation [...] filedocumented in this encounter Care Teams Data Collection Associate Relationship Specialty Start Date End Date Clara Stanley PA [address] [place] [address] PCP - General Nurse Practitioner 04/05/19 Jasper Canchola MD [address] [place] [address] Surgeon Thoracic Surgery 05/11/19 Alexis Lopez MD [address] [address] Assistant Construction Superintendent Pulmonary Disease 05/11/19 Kip Del Rio MD [address] [facility] [address] [place] [address] Medical Oncologist/Social Media Designer Hematology and Oncology 05/11/19 Jacob Flynn MD [address] [facility] [address] [place] [address] Radiation Oncologist Radiation Oncology 05/25/19 documented as of this encounter
--- OUTSIDE RECORDS SUMMARY | 2024-03-02 04:25 | XMS_ITS | Encounter Summary ---
Author Organization [facility] Healthcare Address [address] [place] [address] Care Team Providers Care Livestock Farm Manager Name Role Phone Clara Stanley Primary Care Provider + Jasper Canchola MD Unavailable Alexis Lopez MD Unavailable [phone] Kip Del Rio MD Unavailable Encounter Details Date Type Department Care Team (Latest Contact Info) Description 05/11/2019 1:46 PM ENDORSEMENT CLERK Hospital Encounter [facility] [address] [place] [address] Discharge Disposition: Discharge to home or self care Social History Tobacco Use Types Packs/Day Years Used Date Smoking Tobacco: Never Smokeless Tobacco: Never Sex and Gender Information Value Date Recorded Sex Assigned at Not on file Legal Sex Male 1:17 AM ENDORSEMENT CLERK Gender Identity Not on file Sexual [...] BODY OUTSIDE REFERENCE Routine 05/11/2019 1:46 PM ENDORSEMENT CLERK Diagnosis unknown documented in this encounter Results * CT Body Outside Reference (05/11/2019 1:46 PM ENDORSEMENT CLERK) Impressions RAD_PACS[facility] - 05/11/2019 1:46 PM ENDORSEMENT CLERK These images are for Reference purposes only and have not been reviewed by [facility] Radiology. ??There will be no report generated by a [facility] Radiologist. Narrative RAD_PACS[facility] - 05/11/2019 1:46 PM ENDORSEMENT CLERK EXAMINATION: ??Images For Reference Purposes Only us Kip Del Rio MD IMG CT PROCEDURES Final Re sult [facility] documented in this encounter Visit Diagnoses Not on filedocumented in this encounter Care Teams Livestock Farm Manager Relationship Specialty Start Date End Date Clara Stanley PA [address] [place] [address] [phone] (Work) PCP - General Nurse Practitioner 04/05/19 Jasper Canchola MD [address] [place] [address] Surgeon Thoracic Surgery 05/11/19 Alexis Lopez MD [address] [address] Film Maker Pulmonary Disease 05/11/19 [place] [address] [place] [address] [place] [address] Medical Oncologist/Pickup Driver Hematology and Oncology 05/11/19 documented as of this encounter
--- OUTSIDE RECORDS SUMMARY | 2024-03-02 04:25 | XMS_ITS | Encounter Summary ---
Author Organization [facility] Address [address] [place] [address] Care Team Providers Care Pharmacist Per Diem Name Role Phone Clara Stanley Primary Care Provider + Jasper Canchola MD Unavailable Alexis Lopez MD Unavailable Kip Del Rio MD Unavailable Encounter Details Date Type Department Care Team (Late st Contact Info) Description 05/19/2019 7:24 AM TRUST VAULT CLERK Anesthesia Event [facility] Operating Room 1 [place] [address] Ishan Pitts MD [address] [place] [address] Adalid Almonte MD [address] [place] [address] Anesthesia Record Procedure Summary Procedure Name Responsible [...] Ne ck; 02/16/24 (Retired LDA, Removed/Completed by [facility] with LDA Utility); 1213 (Retired LDA, Removed/Completed by [facility] with LDA Utility) 05/19/19 0633 by Rickey [...] on file Legal Sex Male 1:17 AM TRUST VAULT CLERK Gender Identity Not on file Sexual Orientation Straight 09/22/2019 8: 21 PM CDT documented as of this encounter OR Notes * Anesthesia Postprocedure Evaluation - Ishan Pitts MD - 05/19/2019 10:24 AM CST Patient: Kwaku Kulkarni Procedure Summary Date: 05/19/19 Room / Location: [facility] OR POD 3 ROOM 304 / [facility] OR POD 3 Anesthesia Start: 723 Anesthesia [...] video device to assist with the intubation). T VAULT CLERK * Anesthesia Procedure Notes - Adalid Almonte [...] attempt successful with Kenney (Grade 1 view). T VAULT CLERK * Anesthesia Procedure Notes - Adalid Almonte [...] patient tolerated procedure well with no complications T VAULT CLERK * Anesthesia Preprocedure Evaluation - Ishan Pitts MD - 2019 1:16 PM CST Images from the original note were not included. Center for Preoperative Assessment and Planning Preoperative Evaluation Record Evaluation type/location: [facility] Planned procedure site: [facility] (Pods 2/3/5/DIRECTOR VOICE) Date: 05/13/19 Anesthesia Evaluation Kwaku Kulkarni is [...] and grade I/ Negative for peripheral edema ([place] LSB) Pulmonary Exam: LCTA, bilat EENT Exam: [...] and agree to proceed. All questions answered. T VAULT CLERK T VAULT CLERK T VAULT CLERK documented in this encounter Plan of Treatment Not on file documented as of this encounter Procedures Procedure Name Priority Date/Time Associated Diagnosis Comments ANESTHESIA INTUBATION Routine 05/19/2019 8:13 AM TRUST VAULT CLERK PERIPHERAL LINE Routine 05/19/2019 8:08 AM TRUST VAULT CLERK documented in this encounter Results * Airway (05/19/2019 8:13 AM TRUST VAULT CLERK) Narrative Adalid Almonte MD - 05/19/2019 8:13 AM TRUST VAULT CLERK Adalid Almonte MD ? 05/19/2019 ??8:22 AM [...] successful with Kenney (Grade 1 view). Result [facility] Ishan Pitts MD ANESTHESIA ORDERABLES Fin al Result * Peripheral IV Catheter (05/19/2019 8:08 AM TRUST VAULT CLERK) Adalid Bahena MD - 05/19/2019 8:08 AM TRUST VAULT CLERK Adalid Almonte MD ? 05/19/2019 ??8:08 AM [...] (ANCEF) injection intravenous, As needed, Starting on Priscila 05/19/19 at 0755, Anesthesia Intra-op Given 05/19/2019 7:55 AM TRUST VAULT CLERK 3,000 mg dexAMETHasone (DECADRON) 4 mg/mL injection Administer over 2 Minutes, As needed, Starting on Priscila 05/19/19 at 0805, Anesthesia Intra-op Given 05/19/2019 8:05 AM TRUST VAULT CLERK 4 mg fentaNYL (SUBLIMAZE) preservative free injection intravenous, As needed, Starting on Priscila 05/19/19 at 0800, Anesthesia Intra-op Given 05/19/2019 8:15 AM TRUST VAULT CLERK 50 mcg Given 05/19/2019 8:00 AM TRUST VAULT CLERK 50 mcg Given 05/19/2019 7:33 AM TRUST VAULT CLERK 100 mcg glycopyrrolate (ROBINUL) injection intravenous, Administer over 1 Minutes, As needed, Starting on Priscila 05/19/19 at 0908, Anesthesia Intra-op Given 05/19/2019 9:08 AM TRUST VAULT CLERK 1 mg HYDROmorphone (DILAUDID) injection intravenous, Administer over 2 Minutes, As needed, Starting on Priscila 05/19/19 at 0905, Anesthesia Intra-op Given 05/19/2019 9:05 AM TRUST VAULT CLERK 0.2 mg ketorolac (TORADOL) injection As needed, Starting on Priscila 05/19/19 at 0853, Anesthesia Intra-op Given 05/19/2019 9:00 AM TRUST VAULT CLERK 30 mg Lactated Ringer's (LR) infusion 30 mL/hr, intravenous, Continuous, Starting on Priscila 05/19/19 at 0645, Pre-Op New Bag 05/19/2019 7:27 AM TRUST VAULT CLERK New Bag 05/19/2019 6:20 AM TRUST VAULT CLERK 30 mL/hr 30 mL/hr lidocaine PF (XYLOCAINE) 10 mg/mL (1 %) preservative free injection As needed, Starting on Priscila 05/19/19 at 0724, Anesthesia Intra-op Given 05/19/2019 7:38 AM TRUST VAULT CLERK 100 mg midazolam (VERSED) preservative free injection intravenous, Administer over 2 Minutes, As needed, Starting on Priscila 05/19/19 at 0724, Anesthesia Intra-op Given 05/19/2019 7:24 AM TRUST VAULT CLERK 2 mg neostigmine (PROSTIGMIN) injection intravenous, Administer over 3 Minutes, As needed, Starting on Priscila 05/19/19 at 0908, Anesthesia Intra-op Given 05/19/2019 9:08 AM TRUST VAULT CLERK 5 mg ondansetron (ZOFRAN) injection intravenous, Administer over 2 Minutes, As needed, Starting on Priscila 05/19/19 at 0853, Anesthesia Intra-op Given 05/19/2019 8:53 AM TRUST VAULT CLERK 4 mg phenylephrine (J CARLOS-SYNEPHRINE) 0.5 mg/5 mL (100 mcg/mL) in sodium chloride 0.9% (premix) intravenous, As needed, Starting on Priscila 05/19/19 at 0829, Anesthesia Intra-op Given 05/19/2019 8:29 AM TRUST VAULT CLERK 100 mcg Given 05/19/2019 8:20 AM TRUST VAULT CLERK 50 mcg propofoL (DIPRIVAN) IV intravenous, As needed, Starting on Priscila 05/19/19 at 0724, Anesthesia Intra-op Given 05/19/2019 7:45 AM TRUST VAULT CLERK 100 mg Given 05/19/2019 7:41 AM TRUST VAULT CLERK 50 mg Given 05/19/2019 7:38 AM TRUST VAULT CLERK 150 mg rocuronium (ZEMURON) injection intravenous, As needed, Starting on Priscila 05/19/19 at 0740, Anesthesia Intra-op Given 05/19/2019 7:40 AM TRUST VAULT CLERK 70 mg sodium chloride 0.9% infusion Continuous PRN, Starting on Priscila 05/19/19 at 0727, Anesthesia Intra-op New Bag 05/19/2019 7:27 AM TRUST VAULT CLERK documented in this encounter Care Teams Pharmacist Per Diem Relationship Specialty Start Date End Date Clara Stanley PA [address] [place] [address] PCP - General Nurse Practitioner 04/05/19 Jasper Canchola MD [address] [place] [address] Surgeon Thoracic Surgery 05/11/19 Alexis Lopez MD [address] [facility] [address] [place] [address] [place] [address] Watch Band Assembler Pulmonary Disease 05/11/19 Kip Del Rio MD [address] [facility] [address] [place] [address] Medical Oncologist/Pc Support Specialist Hematology and Oncology 05/11/19 documented as of this encounter
--- OUTSIDE RECORDS SUMMARY | 2024-03-02 04:25 | XMS_ITS | Encounter Summary ---
Author Organization [facility] Healthcare Address [address] [place] [address] Care Team Providers Care Drug Safety Scientist Name Role Phone Clara Stanley Primary Care Provider + Encounter Details Date Type Department Care Team (Latest Contact Info) Description 05/10/2019 10:36 AM DEMO SPECIALIST Hospital Encounter [facility] [address] [place] [address] Diagnosis unknown Discharge Disposition: Discharge to home or self care Social History Tobacco Use Types Packs/Day Years Used Date Smoking Tobacco: Never Smokeless Tobacco: Never Sex and Gender Information Value Date Recorded Sex Assigned at Not on file Legal Sex Male 1:17 AM DEMO SPECIALIST Gender Identity Not on file Sexual [...] BODY OUTSIDE CONSULT Routine 05/10/2019 10:36 AM DEMO SPECIALIST Diagnosis unknown documented in this encounter Results * CT Body Outside Consult (05/10/2019 10:36 AM DEMO SPECIALIST) Anatomical Region Laterality Modality Body N/A Computed Tomogra phy 05/10/2019 11:2 0 AM DEMO SPECIALIST Impressions 05/10/2019 12:51 PM DEMO SPECIALIST Lobulated right lower lobe nodule with associated [...] images may or may not represent the [place] source data set and thus may contain changes that may lower the accuracy of this second-opinion interpretation. Dictated by: Wong Butts M.D. The radiology attending physician has personally reviewed this study, and had reviewed and/or edited this written report and agrees with it. Electronically signed by: Alexander Ceron M.D., MPH Narrative 05/10/2019 12:51 PM DEMO SPECIALIST EXAMINATION: RADIOLOGY CONSULTATION ON OUTSIDE IMAGING STUDY STUDY INITIALLY PERFORMED: 04/04/2019 and 04/22/2019 at [facility]. TYPE OF STUDY: Multiple CT [...] STUDY INITIALLY PERFORMED: 04/04/2019 and 04/22/2019 at [facility]. TYPE OF STUDY: Multiple CT [...] images may or may not represent the [place] source data set and thus may contain [...] unknown documented in this encounter Care Teams Drug Safety Scientist Relationship Specialty Start Date End Date Clara Stanley PA [address] [place] [address] PCP - General Nurse Practitioner 04/05/19 documented as of this encounter
--- OUTSIDE RECORDS SUMMARY | 2024-03-02 04:25 | XMS_ITS | Encounter Summary ---
Author Organization [facility] Healthcare Address [address] [place] [address] Care Team Providers Care Ham Pumper Name Role Phone Clara Stanley Primary Care Provider + Jasper Canchola MD Unavailable Alexis Lopez MD Unavailable Kip Del Rio MD Unavailable Encounter Details Date Type Department Care Team (Late st Contact Info) Description 05/16/2019 Telephone [facility] Advanced Medicine Radiation Oncology [address] [facility] Advanced Medicine [facility] [place] [address] Jacob Flynn MD [address] [facility] [address] LL [address] [place] [address] Social History Tobacco Use Types Packs/Day Years Used Date Smoking Tobacco: Never Smokeless Tobacco: Never Alcohol Use Standard Drinks/Week Comments Yes 0 (1 standard drink = 0.6 oz pur e alcohol) social Sex and Gender Information Value Date Recorded Sex Assigned at Not on file Legal Sex Male 1:17 AM MANAGER AGRICULTURAL Gender Identity Not on file Sexual Orientation Straight 09/22/2019 8: 21 PM CDT documented as of this encounter Miscellaneous Notes * Telephone Encounter - Khadijah Almaguer - 05/16/2019 10:13 AM CST Called patient again to discuss scheduling radiation oncology consultation per referral from medical oncologist Dr. Kip Del Rio. Left 2nd voicemail requesting return call to [phone] to schedule. GER AGRICULTURAL documented in this encounter Plan of Treatment Not on file documented as of this encounter Visit Diagnoses Not on filedocumented in this encounter Care Teams Ham Pumper Relationship Specialty Start Date End Date Clara Stanley PA [address] [place] [address] PCP - General Nurse Practitioner 04/05/19 Jasper Canchola MD [address] [place] [address] [phone] Surgeon Thoracic Surgery 05/11/19 Alexis Lopez MD [address] [address] [employer] French Teacher Pulmonary Disease 05/11/19 Kip Del Rio MD [address] [facility] [address] [place] [address] Medical Oncologist/Electrical Linesworker Hematology and Oncology 05/11/19 documented as of this encounter
--- OUTSIDE RECORDS SUMMARY | 2024-03-02 04:25 | XMS_ITS | Encounter Summary ---
Author Organization [facility] Healthcare Address [address] [place] [address] Care Team Providers Care Overnight Caregiver Name Role Phone Clara Stanley Primary Care Provider + Jasper Harris MD Unavailable [phone] Alexis Lopez MD Unavailable [phone] Kip Del Rio MD Unavailable [phone] Encounter Details Date Type Department Care Team (Latest Contact Info) Description 05/19/2019 5:30 AM FACING BASTER - 05/19/2019 11:15 AM FACING BASTER Hospital Encounter [facility] Operating Room [address] [place] [address] Jasper Harris MD [address] [facility] [id number] [place] [address] Lung nodule Discharge Disposition: Discharge to home or self care Social History Tobacco Use Types Packs/Day Years Used Date Smoking Tobacco: Never Smokeless Tobacco: Never Alcohol Use Standard Drinks/Week Comments Yes 0 (1 standard drink = 0.6 oz pur e alcohol) social Sex and Gender Information Value Date Recorded Sex Assigned at Not on file Legal Sex Male 1:17 AM FACING BASTER Gender Identity Not on file Sexual Orientation Straight 09/22/2019 8: 21 PM CDT documented as of this encounter Last Filed Vital Signs Vital Sign Reading Time Taken Comments Blood Pressure 134/86 05/19/2019 10:40 AM FACING BASTER Pulse 75 05/19/2019 10:45 AM FACING BASTER Temperature 36.5 ??C (97.7 ??F) 05/19/2019 10:[address] Respiratory Rate 14 05/19/2019 10:45 AM FACING BASTER Oxygen Saturation 94% 05/19/2019 10:45 AM FACING BASTER Inhaled Oxygen Concentration - - Weight - [...] block - UNSPECIFIED RIGHT BUNDLE-BRANCH BLOCK Other senior care (current) drug therapy - OTHER ALF (CURRENT) DRUG THERAPY documented in this encounter Discharge Instructions * Discharge Instructions* Khadijah Barnett, RN - 05/19/2019 10:21 AM FACING BASTER Pulmonary Nodules WHAT YOU NEED TO KNOW: [...] healthcare provider will refer you to a keyboard action assembler. Your keyboard action assembler will monitor your nodules for any change [...] before you use these products. ?? 2017 [employer] Information is for End User's use only and may not be sold, redistributed or otherwise used for commercial purposes. All illustrations and images included in CareNotes?? are the copyrighted property of [employer] or [employer]. The above information is an social services aide only. It is not intended as medical advice for individual conditions or treatments. Talk to your doctor, nurse or pharmacist before following any medical regimen to see if it is safe and effective for you. Dr. Harris will speak with the patient about follow up before he leaves NG BASTER * Attachments The following attachments cannot be sent through Care Everywhere. * Mediastinoscopy (Discharge Care) (Divehi) documented in this encounter Medications at Time [...] an acceptable riskfor : Procedure(s): MEDIASTINOSCOPY CERVICAL NG BASTER Source Note - Elisabeth Kellogg NP - 2019 1:16 PM FACING BASTER Images from the original note were not included. Center for Preoperative Assessment and Planning Preoperative Evaluation Record Evaluation type/location: [facility] Planned procedure site: [facility] (Pods 2/3/5/TRAVEL REGISTERED NURSE PACU) Date: 05/13/19 Anesthesia Evaluation Mp Kulkarni is [...] and grade I/ Negative for peripheral edema (Putnam LSB) Pulmonary Exam: LCTA, bilat EENT Exam: [...] Total Score: 4 Enzo index score: 100 NG BASTER NG BASTER documented in this encounter Miscellaneous Notes * Perioperative Nursing Note - Khadijah Barnett RN - 05/19/2019 11:[address] Harris here and spoke to family. Questions answered. NG BASTER * Perioperative Nursing Note - Rickey Booker RN - 05/19/2019 8:51 AM FACING BASTER SIX SPECIMEN TAKEN TO PATHOLOGY BY DR. HARRIS NG BASTER * Brief Op Note - Ama Carpenter MD - 05/19/2019 8:02 AM CST Operative Progress Note Surgical Team: Surgeon(s) and Role: * Jasper Harris MD - Primary * Myrtel Haji MD - Resident - Observing * Ama Carpenter MD - Resident - Observing Anesthesiologist: Ishan Pitts MD Heel Builder: Adalid Almonte MD Net Applications Developer: Alexander Sanabria RN; Mp Wakefield RN Scrub: Chi Ordonez RN Net Applications Developer Second: Rickey Booker RN DATE OF SURGERY [...] Jasper Harris MD at 05/19/2019 9:50 AM FACING BASTER NG BASTER NG BASTER NG BASTER * Perioperative Nursing Note - Carisa Leon RN - 05/19/2019 7:01 AM CST Pt arrived to pre-op, changed into gown. Placed on monitor. IV started, fluids infusing per order. H&P completed & signed by attending. Consents complete. Pt resting, awaiting OR. Will monitor. 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 Operative Procedure Cervical mediastinoscopy. Surgeon Jasper Harris MD Solvent Station Attendant Ama Carpenter MD Anesthesia General. Clinical Note [...] no complications noted. Job ID/VF Job ID: [id number] NG BASTER documented in this encounter Plan of Treatment Not on file documented as of this encounter Procedures Procedure Name Priority Date/Time Associated Diagnosis Comments CYTOLOGY Routine 05/19/2019 8:33 AM FACING BASTER Lung nodule SURGICAL PATHOLOGY Routine 05/19/2019 8: 16 AM FACING BASTER Lung nodule MEDIASTINOSCOPY 05/19/2019 7:27 AM FACING BASTER Lung nodule documented in this encounter Results * Cytology (05/19/2019 8:33 AM FACING BASTER) Fluid (Mediastinum (Cytology)) 05/19/2019 8:33 AM FACING BASTER Comment:MEDIASTINAL FLUID Narrative PATHOLOGY [facility] - 05/25/2019 1:42 PM CDT EPIC results best viewed via link to PDF [facility] Ama Stark Laboratory of Surgical Pathology [place] [address] CYTOPATHOLOGY REPORT FINAL Patient Name: ?? MP KULKARNI Gender: ??M : ??1965 (Age: 54) Address: ??[address] [place] [address] ??[address] Hospital #: ??[id number] Taken:05/19/2019 Received:05/19/2019 Reported: 05/25/2019 Patient Type: [facility] SDS ?? Service: Surgery Location: [facility] Physician(s): ??Tara Ayers PA FINAL [...] Please refer to the current resection specimen ([id number]) for further characterization. ?? rcwp/05/25/2019 10:17 By [...] the Surgical Pathology Department at [facility] as part of an ongoing senior quality engineer program and in compliance with federally mandated [...] by the Surgical Pathology Department of [facility]. ??It has not been cleared or approved by the U. S. Food and Drug Administration. Jasper Harris MD LAB CYTOLOGY ORDERABLES F inal Result Performing Organization Address City/State/[facility] Co de Phone Number PATHOLOGY [facility] 3rd [place], [place] [phone] * Surgical pathology (05/19/2019 8:16 AM FACING BASTER) Tissue (Lymph Node, Single excision) 05/19/2019 8:16 AM FACING BASTER Tissue (Lymph Node, Single excision) 05/19/2019 8:21 AM FACING BASTER Tissue (Lymph Node, Single excision) 05/19/2019 8:26 AM FACING BASTER Tissue (Lymph Node, Single excision) 05/19/2019 8:44 AM FACING BASTER Tissue (Lymph Node, Single excision) 05/19/2019 8:47 AM FACING BASTER Narrative PATHOLOGY [facility] - 05/25/2019 3:46 PM CDT EPIC results best viewed via link to PDF [facility] Ama Stark Laboratory [place] [address] SURGICAL PATHOLOGY REPORT FINAL Patient Name: ?? MP KULKARNI Gender: ??M : ??1965 (Age: 54) Address: ??[address] [place] [address] ??[address] Hospital #: ??[id number] Taken:05/19/2019 Received:05/19/2019 Reported: 05/25/2019 Patient Type: [facility] SDS ?? Service: Surgery Location: [facility] Physician(s): ??Tara Ayers PA Diagnosis: [...] he only wanted a small portion frozen. ??Spindle Setter fragments frozen as CFR1. ??Rest for permanent. [...] ??Our in situ review of the case ([id number]) was positive for a neuroendocrine neoplasm with [...] determined by the Surgical Pathology Department at [facility] as part of an ongoing senior quality engineer program and in compliance with federally mandated [...] by the Surgical Pathology Department of [facility]. ??It has not been cleared or approved by the U. S. Food and Drug Administration. IMAGES AND SCANNED DOCUMENTS, IF INCLUDED, ONLY VIEWABLE IN PDF VERSION OF REPORT Jasper Harris MD LAB PATHOLOGY ORDERABLES Final Result PATHOLOGY [facility] 3rd Floor [place], [place] [phone] documented in this encounter Visit Diagnoses Diagnosis [...] Vein Thrombosis Prevention Given 05/19/2019 6:21 AM FACING BASTER 5,000 Units Left Lower Abdomen Lactated Ringer's (LR) infusion 30 mL/hr, intravenous, Continuous, Starting on Priscila 05/19/19 at 0645, Pre-Op New Bag 05/19/2019 7:27 AM FACING BASTER New Bag 05/19/2019 6:20 AM FACING BASTER 30 mL/hr 30 mL/hr documented in this encounter Active and Recently Administered Medications Times are shown in FACING BASTER. Scheduled Medication Order 05/17/2019 05/18/2019 05/19/2019 acetaminophen [...] 07/2019 documented in this encounter Care Teams Overnight Caregiver Relationship Specialty Start Date End Date Clara Stanley PA [address] [place] [phone] PCP - General Nurse Practitioner 04/05/19 Jasper Harris MD [address] [place] [address] Surgeon Thoracic Surgery 05/11/19 Alexis Lopez MD [address] [address] Linux Administrator Pulmonary Disease 05/11/19 Kip Del Rio MD [address] [facility] [address] [place] [address] Medical Oncologist/Responder Hematology and Oncology 05/11/19 documented as of this encounter
--- OUTSIDE RECORDS SUMMARY | 2024-03-02 04:25 | XMS_ITS | Encounter Summary ---
Author Organization [facility] Care Team Providers Care Rate Analyst Name Role Phone Clara Stanley Primary Care Provider + Jasper Canchola MD Unavailable Alexis Lopez MD Unavailable [phone] Kip Del Rio MD Unavailable Jacob Flynn [...] file Legal Sex Male 1:17 AM CONVEYOR MAN Gender Identity Not on file Sexual [...] on filedocumented in this encounter Care Teams Rate Analyst Relationship Specialty Start Date End Date Clara Stanley PA [address] [place] [address] PCP - General Nurse Practitioner 04/05/19 Jasper Canchola MD [address] [place] [address] [phone] Surgeon Thoracic Surgery 05/11/19 Alexis Lopez MD [address] [address] Head Sawyer Pulmonary Disease 05/11/19 Kip Del Rio MD 49[address] [facility] [address] [place] [address] Medical Oncologist/Manager Rfid Hematology and Oncology 05/11/19 Jacob Flynn MD 49[address] [facility] [address] # LL LL [address] [place] [address] Radiation Oncologist Radiation Oncology 05/25/19 documented as of this encounter
--- OUTSIDE RECORDS SUMMARY | 2024-03-02 04:25 | XMS_ITS | Encounter Summary ---
Author Organization [facility] Address [address] [facility] [address] [place] [address] Care Team Providers Care Governor Assembler Name Role Phone Clara Stanley Primary Care Provider + Reason for Referral * Consultation (Routine) - Closed Specialty Diagnoses / Procedures Referred By Contac t Referred To Contact Oncology Diagnoses Right lower [place] [address] [place] [address] [address] [place] [address] Phone: tel: fax: Kip Block MD [address] [place] [address] [place] [address] Phone: tel: fax: Referral ID Status Reason Start Date Expiration Date V isits Requested Visits Authorized [id number] Closed Specialty Services Required 05/10/2019 11/18/2020 1 1 Question Answer Is this referral for [facility]? No Please select the performing region: External Order [171] To provider: KIP BLOCK [[id number]] # of visits: 1 ENTARY SCIENCE TEACHER Encounter Details Date Type Department Care Team (Late st Contact Info) Description 05/10/2019 Orders Only [facility] Pulmonology [address] [facility] [address] [place] [phone] Deb Marcum MA Right lower lobe pulmonary nodule (Primary Dx) Social History Tobacco Use Types Packs/Day Years Used Date Smoking Tobacco: Never Smokeless Tobacco: Never Sex and Gender Information Value Date Recorded Sex Assigned at Not on file Legal Sex Male 1:17 AM ELEMENTARY SCIENCE TEACHER Gender Identity Not on file [...] there on 05/11/2019. Spoke with Ivone @ [facility], Pt is scheduled for , 05/12/2019, @ 8 am. Patient was informed and pt will pickling machine operator CDs with images today and get PSA lab work completed @ [facility], ( ordered per ) ENTARY SCIENCE TEACHER documented in this encounter Plan of Treatment Scheduled Referrals Name Type Priority Associated Diagnoses Order Schedule Ambulatory referral to Oncology Outpatient Referral Routine Right lower lobe pulmonary nodule Expected: 05/10/2019 (Approximate), Expires: 05/10/2020 documented as of this encounter Procedures Procedure Name Priority Date/Time Associated Diagnosis Comments PSA, TOTAL AND FREE Routine 05/10/2019 1 2:35 PM ELEMENTARY SCIENCE TEACHER Right lower lobe pulmonary nodule documented in this encounter Results * PSA, total and free (05/10/2019 12:35 PM ELEMENTARY SCIENCE TEACHER) Free PSA Screen 0.4 ng/mL [facility] PROSTATE SPECIFIC AG, TOTAL 1.9 0.0 - 4.0 ng/mL [facility] Comment: INTERPRETIVE INFORMATION: Prostate Specific Antigen The [...] PROSTATE SPECIFIC AG, % FREE 21 % [facility] Comment: INTERPRETIVE INFORMATION: Prostate Specific Antigen, Free Percentage [facility] uses the [employer] Free PSA electrochemiluminescent immunoassay [...] prostate cancer in individual patients. Performed by [facility], [address] [place] [address] [email or web address], Carlyle Stewart MD, Lab. Director Blood specimen (specimen) 05/10/2019 12:35 PM ELEMENTARY SCIENCE TEACHER 05/10/2019 1:05 PM ELEMENTARY SCIENCE TEACHER Narrative Resulting Agency Comment CLI us Alexis Lopez MD LAB BLOOD ORDERABLES [facility] Result [facility] [address] [phone] documented in this encounter Visit Diagnoses Diagnosis Right lower lobe pulmonary nodule- Primary documented in this encounter Care Teams Governor Assembler Relationship Specialty Start Date End Date Clara Stanley PA [address] [place] [address] PCP - General Nurse Practitioner 04/05/19 documented as of this encounter
--- OUTSIDE RECORDS SUMMARY | 2024-03-02 04:25 | XMS_ITS | Encounter Summary ---
Author Organization [facility] Healthcare Address [address] [place] [address] Care Team Providers Care Ehr Trainer Name Role Phone Clara Stanley Primary Care Provider + Encounter Details Date Type Department Care Team (Late st Contact Info) Description 05/10/2019 11:58 AM SPAR MACHINE OPERATOR HELPER Hospital Encounter [facility] OP INTERIM Alexsi Lopez MD [address] [facility] [address] [address] Social History Tobacco Use Types Packs/Day Years Used Date Smoking Tobacco: Never Smokeless Tobacco: Never Sex and Gender Information Value Date Recorded Sex Assigned at Not on file Legal Sex Male 1:17 AM SPAR MACHINE OPERATOR HELPER Gender Identity Not on [...] on filedocumented in this encounter Care Teams Ehr Trainer Relationship Specialty Start Date End Date Clara Stanley PA [address] [place] [address] PCP - General Nurse Practitioner 04/05/19 documented as of this encounter
--- OUTSIDE RECORDS SUMMARY | 2024-03-02 04:25 | XMS_ITS | Encounter Summary ---
Author Organization [facility] Healthcare Address [address] [place] [address] Care Team Providers Care Solar Development Engineer Name Role Phone Clara Stanley Primary Care Provider + Encounter Details Date Type Department Care Team (Late st Contact Info) Description 05/05/2019 11:07 AM MEATCUTTER Hospital Encounter [facility] OP INTERIM Blair Cooley MD 46[address] [facility] [address] [address] Social History Tobacco Use Types Packs/Day Years Used Date Smoking Tobacco: Never Smokeless Tobacco: Never Sex and Gender Information Value Date Recorded Sex Assigned at Not on file Legal Sex Male 1:17 AM MEATCUTTER Gender Identity Not on file Sexual Orientation [...] WITH AUTO DIFFERENTIAL Routine 05/05/2019 11:49 AM MEATCUTTER APTT Routine 05/05/2019 11:49 AM MEATCUTTER PROTIME-INR Routine 05/05/2019 11:49 AM MEATCUTTER BASIC METABOLIC PANEL Routine 05/05/2019 11:49 AM MEATCUTTER documented in this encounter Results * (ABNORMAL) Basic metabolic panel (05/05/2019 11:49 AM MEATCUTTER) Sodium 139 135 - 145 mmol/L [facility] Potassium 3.8 3.3 - 5.1 mmol/L [facility] Chloride 107 96 - 108 mmol/L [facility] Carbon Dioxide 22 22 - 32 mmol/L [facility] Anion Gap 10 7 - 16 [facility] Glucose 104(H) 70 - 100 mg/dL [facility] BUN 8 8 - 25 mg/dL [facility] Creatinine 0.8 0.5 - 1.3 mg/dL [facility] Comment: NOTE: Estimated GFR (Cockroft-Gault) will NOT be calculated unless patient Height and Weight were entered. Also, Kidney Disease Stage (GFR) and Estimated GFR (Cockroft-Gault) will NOT be calculated if Creatinine result is <0.2. Kidney Disease Stage >90 mL/MIN [facility] Comment: NOTE; ??The GFR is an estimated [...] dialysis Calcium 9.4 8.6 - 10.3 mg/dL [facility] 05/05/2019 11:4 9 AM MEATCUTTER 05/05/2019 12:05 PM MEATCUTTER Narrative Resulting Agency Comment CLI Blair Cooley MD LAB BLOOD ORDERABLES Final R esult [facility] [address] [phone] * aPTT (05/05/2019 11:49 AM MEATCUTTER) APTT 32 27 - 36 SECONDS [facility] 05/05/2019 11:4 9 AM MEATCUTTER 05/05/2019 12:05 PM MEATCUTTER Narrative Resulting Agency Comment CLI Blair Cooley MD LAB BLOOD ORDERABLES Final R esult Performing Organization Address [facility]/ZIP Co de Phone Number [facility] [address] [phone] * Protime-INR (05/05/2019 11:49 AM MEATCUTTER) Pathologist [facility] PT 13.1 12.2 - 14.8 SECONDS [facility] INR 0.96 [facility] Comment: Recommended Therapeutic range for Oral Anticoagulant Therapy No anti-coagulation therapy ? Normal Range: ?0.8-1.4 Anti-coagulation therapy ? Low intensity therapy ?2.0-3.0 ? High intensity therapy ?? 2.5-3.5 Critical Value ? Greater than or equal to 5.0 Patients should be monitored for serious bleeding. 05/05/2019 11:4 9 AM MEATCUTTER 05/05/2019 12:05 PM MEATCUTTER Narrative Resulting Agency Comment CLI Blair Cooley MD LAB BLOOD ORDERABLES Final R [facility] Performing Organization Address [facility] Co de Phone Number [place] [phone] [place] [address], [facility] [phone] * (ABNORMAL) CBC with auto differential (05/05/2019 11:49 AM MEATCUTTER) Pathologist [facility] WBC 9.4 3.8 - 9.9 X10 3/ul [facility] RBC 4.62 4.30 - 5.80 x10 6/ul [facility] Hemoglobin 13.1 13.0 - 17.5 g/dL [facility] Hct 40.5 38.9 - 50.3 % [facility] MCV 87.7 81.3 - 96.4 fl [facility] MCH 28.4 27.1 - 33.3 pg [facility] MCHC 32.3 32.3 - 35.7 g/dl [facility] RDW 14.2 11.1 - 14.9 % [facility] Plt Count 292 150 - 400 x10 3/ul [facility] MPV 11.7 9.1 - 12.3 fl [facility] Neut % 72.2 % [facility] Immature Gran % 0.4 % [facility] Lymph % 15.2 % [facility] Arenac % 8.8 % [facility] Eos % 3.0 % [facility] AUTO BASO % 0.4 % [facility] NEUTROPHIL ABS # 6.8(H) 1.7 - 6.5 x10 3/ul [facility] Immature Gran # 0.0 0.0 - 0.1 x10 3/ul [facility] Absolute Lymphs (auto) 1.4 0.8 - 3.3 x10 3/ul [facility] Absolute Monos (auto) 0.8 0.2 - 0.8 x10 3/ul [facility] Absolute Eos (auto) 0.3 0.0 - 0.5 x10 3/ul [facility] BASOPHIL ABS # 0.0 0.0 - 0.1 x10 3/ul [facility] Nucleat RBC Rel Count 0.0 #/100WBC [facility] NRBC abs 0.00 0.00 - 0.01 x10 3/ul [facility] Absolute Neutrophils 6,800 200 - 8,000 /ul [facility] 05/05/2019 11:4 9 AM MEATCUTTER 05/05/2019 12:05 PM MEATCUTTER Narrative Resulting Agency Comment CLI us Blair Cooley MD LAB BLOOD ORDERABLES Final R esult [facility] [address] [phone] documented in this encounter Visit Diagnoses Not on filedocumented in this encounter Care Teams Solar Development Engineer Relationship Specialty Start Date End Date Clara Stanley PA [address] [place] [address] PCP - General Nurse Practitioner 04/05/19 documented as of this encounter
--- OUTSIDE RECORDS SUMMARY | 2024-03-02 04:25 | XMS_ITS | Encounter Summary ---
Author Organization [facility] Healthcare Address [address] [place] [address] Care Team Providers Care Climatology Teacher Name Role Phone Clara [place] Primary Care Provider + Jasper Canchola MD Unavailable [phone] Alexis Lopez MD Unavailable [phone] Kip Del Rio MD Unavailable [phone] Encounter Details Date Type Department Care Team (Latest Contact Info) Description 2019 6:04 PM REFINERY PROCESS ENGINEER - 2019 11:59 PM REFINERY PROCESS ENGINEER Hospital Encounter [facility] [address] [place] [address] Discharge Disposition: Discharge to home or self care Social History Tobacco Use Types Packs/Day Years Used Date Smoking Tobacco: Never Smokeless Tobacco: Never Alcohol Use Standard Drinks/Week Comments Yes 0 (1 standard drink = 0.6 oz pur e alcohol) social Sex and Gender Information Value Date Recorded Sex Assigned at Not on file Legal Sex Male 1:17 AM REFINERY PROCESS ENGINEER Gender Identity Not on file Sexual [...] PET OUTSIDE REFERENCE Routine 2019 6:04 PM REFINERY PROCESS ENGINEER Diagnosis unknown documented in this encounter Results * PET Outside Reference (2019 6:04 PM REFINERY PROCESS ENGINEER) Impressions [facility] - 2019 6:04 PM REFINERY PROCESS ENGINEER These images are for Reference purposes only and have not been reviewed by [facility] Radiology. ??There will be no report generated by a [facility] Radiologist. Narrative [facility] - 2019 6:04 PM REFINERY PROCESS ENGINEER EXAMINATION: ??Images For Reference Purposes Only us Jasper Canchola MD IMG PET PROCEDURES Final Result [facility] documented in this encounter Visit Diagnoses Not on filedocumented in this encounter Care Teams Climatology Teacher Relationship Specialty Start Date End Date Clara [place] PA [address] [place] [address] PCP - General Nurse Practitioner 04/05/19 Jasper Canchola MD [address] [place] [address] Surgeon Thoracic Surgery 05/11/19 Alexis Lopez MD [address] [address] Electric Motor Mechanic Pulmonary Disease 05/11/19 Kip Del Rio MD [address] [facility] [address] [place] [address] Medical Oncologist/Anthropometrist Hematology and Oncology 05/11/19 documented as of this encounter
--- OUTSIDE RECORDS SUMMARY | 2024-03-02 04:25 | XMS_ITS | Encounter Summary ---
Author Organization [facility] Address [address] [facility] [address] [place] [address] Phone Care Team Providers Care Head Porter Baggage Name Role Phone Clara [place] Primary Care Provider + Jasper Canchola MD Unavailable Alexis Lopez MD Unavailable Kip Del Rio MD Unavailable Jacob Flynn MD Unavailable Encounter Details Date Type Department Care Team (Late st Contact Info) Description 05/25/2019 2:30 PM CDT Office Visit [facility] Surgery [address] [facility] Advanced Medicine 8th [place] [address] [place] [address] Jasper Canchola MD [address] [facility] 8233-07-15 [place] [address] Malignant neoplasm of lower lobe of right lung (CMS/HCC) (Primary Dx) Social History Tobacco Use Types Packs/Day Years Used Date Smoking Tobacco: Never Smokeless Tobacco: Never Alcohol Use Standard Drinks/Week Comments Yes 0 (1 standard drink = 0.6 oz pur e alcohol) social Sex and Gender Information Value Date Recorded Sex Assigned at Not on file Legal Sex Male 1:17 AM SOCIAL STUDIES TEACHER Gender Identity Not on file Sexual [...] Canchola MD - 05/25/2019 2:30 PM CDT [facility] Thoracic Surgery Note 05/26/2019 KALPANA Lema 1965 [...] very much. Yours sincerely, Sary Canchola MD Precision Aircraft Structure Assembler completed by using [employer] Fluency Direct speaking software, therefore, transcriptionvariances may [...] 08/03/2019 added in this encounter Care Teams Head Porter Baggage Relationship Specialty Start Date End Date Clara [place] PA [address] [place] [address] PCP - General Nurse Practitioner 04/05/19 Jasper Canchola MD [address] [place] [address] Surgeon Thoracic Surgery 05/11/19 Alexis Lopez MD [address] [address] Treating Engineer Pulmonary Disease 05/11/19 Kip Del Rio MD [address] [facility] [address] [place] [address] Medical Oncologist/Jigger Crown Pouncing Machine Operator Hematology and Oncology 05/11/19 Jacob Flynn MD [address] [facility] [address] LL [address] [place] [address] Radiation Oncologist Radiation Oncology 05/25/19 documented as of this encounter
--- OUTSIDE RECORDS SUMMARY | 2024-03-02 04:25 | XMS_ITS | Encounter Summary ---
Author Organization [facility] Healthcare Address [address] [place] [address] Care Team Providers Care Jet Inspector Name Role Phone Clara [place] Primary Care Provider + Jasper Canchola MD Unavailable Alexis Lopez MD Unavailable [phone] Kip Del Rio MD Unavailable [phone] Encounter Details Date Type Department Care Team (Late st Contact Info) Description 05/12/2019 Telephone [facility] Advanced Medicine Radiation Oncology [address] [facility] [place] [address] Jacob Flynn MD [address] [facility] [address] [place] [address] Social History Tobacco Use Types Packs/Day Years Used Date Smoking Tobacco: Never Smokeless Tobacco: Never Sex and Gender Information Value Date Recorded Sex Assigned at Not on file Legal Sex Male 1:[address] VENDOR Gender Identity Not on file Sexual Orientation Straight 09/22/2019 8: 21 PM CDT documented as of this encounter Miscellaneous Notes * Telephone Encounter - Khadijah Almaguer - 05/12/2019 10:15 AM CST Called patient to discuss scheduling radiation oncology consultation per referral from medical oncologist Dr. Kip Del Rio. Left voicemail requesting return call to [phone] VENDOR documented in this encounter Plan of Treatment Not on file documented as of this encounter Visit Diagnoses Not on filedocumented in this encounter Care Teams Jet Inspector Relationship Specialty Start Date End Date Clara [place] PA [address] [place] [address] PCP - General Nurse Practitioner 04/05/19 Jasper Canchola MD [address] [place] [address] Surgeon Thoracic Surgery 05/11/19 Alexis Lopez MD [address] [address] Toggler Pulmonary Disease 05/11/19 Kip Del Rio MD [address] [facility] [address] [place] [address] Medical Oncologist/Citrus Picker Hematology and Oncology 05/11/19 documented as of this encounter
--- OUTSIDE RECORDS SUMMARY | 2024-03-02 04:25 | XMS_ITS | Encounter Summary ---
Author Organization [facility] Healthcare Address [address] [place] [address] Care Team Providers Care Housekeeper Head Name Role Phone Clara [place] Primary Care Provider + Encounter Details Date Type Department Care Team (Latest Contact Info) Description 05/10/2019 12:00 PM FORECLOSURE HOME INSPECTOR - 05/10/2019 11:59 PM FORECLOSURE HOME INSPECTOR Hospital Encounter [facility]) [address] [place] [address] Discharge Disposition: Discharge to home or self care Social History Tobacco Use Types Packs/Day Years Used Date Smoking Tobacco: Never Smokeless Tobacco: Never Sex and Gender Information Value Date Recorded Sex Assigned at Not on file Legal Sex Male 1:17 AM FORECLOSURE HOME INSPECTOR Gender Identity Not on file Sexual [...] MR OUTSIDE REFERENCE Routine 05/10/2019 12:00 PM FORECLOSURE HOME INSPECTOR Diagnosis unknown documented in this encounter Results * Neuro CT MR Outside Reference (05/10/2019 12:00 PM FORECLOSURE HOME INSPECTOR) Impressions [facility] - 05/10/2019 12:00 PM FORECLOSURE HOME INSPECTOR These images are for Reference purposes only and have not been reviewed by [facility] Radiology. ??There will be no report generated by a [facility] Radiologist. Narrative [facility] - 05/10/2019 12:00 PM FORECLOSURE HOME INSPECTOR EXAMINATION: ??Images For Reference Purposes Only us Jasper Canchola MD IMG CT PROCEDURES Final R esult [facility] documented in this encounter Visit Diagnoses Not on filedocumented in this encounter Care Teams Housekeeper Head Relationship Specialty Start Date End Date Clara [place] PA [address] [place] [address] PCP - General Nurse Practitioner 04/05/19 documented as of this encounter
--- OUTSIDE RECORDS SUMMARY | 2024-03-02 04:25 | XMS_ITS | Encounter Summary ---
Author Organization [facility] Healthcare Address [address] [place] [address] Care Team Providers Care Physical Therapist Center Manager Name Role Phone Clara [place] Primary Care Provider + Jasper Canchola MD Unavailable Alexis Lopez MD Unavailable Kip Del Rio MD Unavailable Encounter Details Date Type Department Care Team (Late st Contact Info) Description 05/16/2019 Telephone [facility] Advanced Medicine Radiation Oncology [address] [facility] Advanced Medicine [facility] [place] [address] Jacob Flynn MD [address] [facility] [address] [place] [address] Social History Tobacco Use Types Packs/Day Years Used Date Smoking Tobacco: Never Smokeless Tobacco: Never Alcohol Use Standard Drinks/Week Comments Yes 0 (1 standard drink = 0.6 oz pur e alcohol) social Sex and Gender Information Value Date Recorded Sex Assigned at Not on file Legal Sex Male 1:17 AM UPHOLSTERY INSTRUCTOR Gender Identity Not on file Sexual Orientation Straight 09/22/2019 8: 21 PM CDT documented as of this encounter Miscellaneous Notes * Telephone Encounter - Khadijah Almaguer - 05/16/2019 10:26 AM CST Patient returned my call to discuss scheduling radiation oncology consultation per referral from medical oncologist Dr. Kip Del Rio. Per patient preference, scheduled with Dr. Geovany Flynn on 05/24 at 11am at [facility]. Patient states all pertinent records (no prior RT) with [facility]; [facility] (ph# [phone]); and [facility] (ph# [phone]). Patient is aware of appointment. LSTERY INSTRUCTOR documented in this encounter Plan of Treatment Not on file documented as of this encounter Visit Diagnoses Not on filedocumented in this encounter Care Teams Physical Therapist Center Manager Relationship Specialty Start Date End Date Clara [place] PA [address] [place] [address] PCP - General Nurse Practitioner 04/05/19 Jasper Canchola MD [address] [place] [address] Surgeon Thoracic Surgery 05/11/19 Alexis Lopez MD [address] [facility] [address] [address] Production Hardener Pulmonary Disease 05/11/19 Kip Del Rio MD 4921 [facility] [address] [place] [address] Medical Oncologist/Die Maintenance Hematology and Oncology 05/11/19 documented as of this encounter
--- OUTSIDE RECORDS SUMMARY | 2024-03-02 04:25 | XMS_ITS | Encounter Summary ---
Author Organization [facility] Healthcare Address [address] [place] [address] Care Team Providers Care Front End Architect Name Role Phone Clara [place] Primary Care Provider + Encounter Details Date Type Department Care Team (Late st Contact Info) Description 05/04/2019 3:52 PM MANUFACTURING ENGINEER CHIEF Hospital Encounter [facility] INTERIM Alexis Lopez MD [address] [facility] [address] [address] Social History Tobacco Use Types Packs/Day Years Used Date Smoking Tobacco: Never Smokeless Tobacco: Never Sex and Gender Information Value Date Recorded Sex Assigned at Not on file Legal Sex Male 1:17 AM MANUFACTURING ENGINEER CHIEF Gender Identity Not on file Sexual Orientation [...] Comments CARDIOPULMONARY DIAGNOSTICS REPORT 05/11/2019 12:00 AM MANUFACTURING ENGINEER CHIEF documented in this encounter Results * CARDIOPULMONARY DIAGNOSTICS REPORT (05/11/2019 12:00 AM MANUFACTURING ENGINEER CHIEF) Narrative 05/11/2019 12:00 AM MANUFACTURING ENGINEER CHIEF Ordered by an unspecified provider. us Historical Provider MD NURSING COMMUNICATION Fin al Result documented in this encounter Visit Diagnoses Not on filedocumented in this encounter Care Teams Front End Architect Relationship Specialty Start Date End Date Clara [place] PA [address] [place] [address] PCP - General Nurse Practitioner 04/05/19 documented as of this encounter
--- OUTSIDE RECORDS SUMMARY | 2024-03-02 04:25 | XMS_ITS | Encounter Summary ---
Author Organization [facility] Healthcare Address [address] [place] [address] Care Team Providers Care Suction Plate Carrier Cleaner Name Role Phone Clara [place] Primary Care Provider + Jasper Canchola MD Unavailable Alexis Lopez MD Unavailable [phone] Kip Del Rio MD Unavailable Jacob Flynn MD Unavailable Reason for Visit * Consultation (Routine) - Closed Specialty Diagnoses / Procedures Referred By Erik [email or web address] Referred To Contact Radiation Oncology Diagnoses Primary cancer of right lower lobe of lung (HCC) Kip Del Rio MD [address] [facility] [address] [place] [address] Phone: tel: fax: Jacob Flynn MD 49[address] [facility] # [address] LL [address] [place] [address] Phone: tel: fax: Referral ID Status Reason Start Date Expiration Date V isits Requested Visits Authorized [id number] Closed Specialty Services Required 05/12/2019 11/20/2020 1 1 Encounter Details Date Type Department Care Team (Late st Contact Info) Description 05/25/2019 11:00 AM CDT Consult [facility] Radiation Oncology [address] [place] [address] Advanced Medicine [place] [phone] Kip Del Rio MD [address] [facility] [address] [place] [address] Jacob Flynn MD [address] [facility] [address] [place] [address] Primary cancer of right lower lobe of lung (CMS/HCC) Social History Tobacco Use Types Packs/Day Years Used Date Smoking Tobacco: Never Smokeless Tobacco: Never Alcohol Use Standard Drinks/Week Comments Yes 0 (1 standard drink = 0.6 oz pur e alcohol) social Sex and Gender Information Value Date Recorded Sex Assigned at Not on file Legal Sex Male 1:17 AM DIVISION SUPERINTENDENT Gender Identity Not on file Sexual [...] carcinoma. 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 Mediastinoscopy on 05.19.2019 with [...] file Gets together: Not on file Attends methodist service: Not on file Active member of [...] 2019 documented in this encounter Care Teams Suction Plate Carrier Cleaner Relationship Specialty [place] [address] [place] [address] PCP - General Nurse Practitioner 04/05/19 Jasper Canchola MD [address] [place] [address] Surgeon Thoracic Surgery 05/11/19 Alexis Lopez MD 4600 [facility] [address] [address] Material Carrier Pulmonary Disease 05/11/19 Kip Del Rio MD 49[address] [facility] [address] [place] [address] Medical Oncologist/Paper Coater Hematology and Oncology 05/11/19 Jacob Flynn MD [address] [facility] # [address] LL [address] [place] [address] Radiation Oncologist Radiation Oncology 05/25/19 documented as of this encounter
--- OUTSIDE RECORDS SUMMARY | 2024-03-02 04:25 | XMS_ITS | Encounter Summary ---
Author Organization [facility] Healthcare Address [address] [place] [address] Care Team Providers Care Head Screen Worker Name Role Phone Clara [place] Primary Care Provider + Encounter Details Date Type Department Care Team (Late st Contact Info) Description 05/06/2019 7:55 AM ONCOLOGY PHYSICIAN ASSISTANT - 05/06/2019 12:35 PM ONCOLOGY PHYSICIAN ASSISTANT Hospital Encounter [facility] OP INTERIM Blair Cooley MD 46[address] [facility] [address] [address] Discharge Disposition: Discharge to home or self care Social History Tobacco Use Types Packs/Day Years Used Date Smoking Tobacco: Never Smokeless Tobacco: Never Sex and Gender Information Value Date Recorded Sex Assigned at Not on file Legal Sex Male 1:17 AM ONCOLOGY PHYSICIAN ASSISTANT Gender Identity Not on file Sexual Orientation Straight 09/22/2019 8: 21 PM CDT documented as of this encounter Last Filed Vital Signs Vital Sign Reading Time Taken Comments Blood Pressure 126/72 05/05/2019 11:31 AM ONCOLOGY PHYSICIAN ASSISTANT Pulse 77 05/05/2019 11:31 AM ONCOLOGY PHYSICIAN ASSISTANT Temperature 36.6 ??C (97.8 ??F) 05/05/2019 1 1:31 AM ONCOLOGY PHYSICIAN ASSISTANT Respiratory Rate - - Oxygen Saturation 97% 05/05/2019 11: 31 AM ONCOLOGY PHYSICIAN ASSISTANT Inhaled Oxygen Concentration - - Weight 160.8 kg (354 lb 9.6 oz) 020 11:31 AM ONCOLOGY PHYSICIAN ASSISTANT Height 190.5 cm (6' 3 ) 05/05/2019 11:3 1 AM ONCOLOGY PHYSICIAN ASSISTANT Body Mass Index 44.32 05/05/2019 11:31 AM ONCOLOGY PHYSICIAN ASSISTANT documented in this encounter Medications at Time [...] SCAN - PATHOLOGY 05/09/2019 12:0 0 AM ONCOLOGY PHYSICIAN ASSISTANT PROCEDURE - RESULT 05/06/2019 12 :00 AM ONCOLOGY PHYSICIAN ASSISTANT XR CHEST 1 VIEW 05/06/2019 12:00 AM ONCOLOGY PHYSICIAN ASSISTANT documented in this encounter Results * SCAN - PATHOLOGY (05/09/2019 12:00 AM ONCOLOGY PHYSICIAN ASSISTANT) Narrative 05/09/2019 12:00 AM ONCOLOGY PHYSICIAN ASSISTANT Ordered by an unspecified provider. us Historical Provider MD Final Res ult * PROCEDURE - RESULT (05/06/2019 12:00 AM ONCOLOGY PHYSICIAN ASSISTANT) Narrative 05/06/2019 12:00 AM ONCOLOGY PHYSICIAN ASSISTANT Ordered by an unspecified provider. us Historical Provider MD Final Res ult * XR Chest 1 View (05/06/2019 12:00 AM ONCOLOGY PHYSICIAN ASSISTANT) Anatomical Region Laterality Modality Body, Chest N/A Radiographic Trang ging 05/06/2019 11:2 3 AM ONCOLOGY PHYSICIAN ASSISTANT Narrative 05/06/2019 11:28 AM ONCOLOGY PHYSICIAN ASSISTANT Patient Name: KWAKU BULLOCK ?Ordering Dr: Blair Cooley MD ?? D.O.B: 1965 ? Exam Date: 05/06/19 ?? 0000 ?? Age: 53 ?Sex: Male ? MR#: [id number] ?? Loc: ? RADIOLOGY REPORT ?? Order #[id number] ?? Radiology ? Chest 1 View Portable [...] 11:28 AM ?? T: ? Report ID: [id number] ?? Reading Location: ??[id number] ? REPORT ELECTRONICALLY SIGNED IN OTHER VENDOR SYSTEM ?? Resulting Agency Comment O Procedure Note Dimitry Benjamin MD - 05/06/2019 Patient Name: KWAKU BULLOCK Dr: Blair Cooley MD DKiyaO.B: 1965 Exam Date: 05/06/19 0000 Age: 53 Sex: Male MR#: [id number] Loc: [facility]#: [id number] RADIOLOGY REPORT Order #[id number] Radiology Chest 1 View Portable Signed EXAM [...] by Dimitry Benjamin M.D. T: Report ID: [id number] Reading Location: [place] [address] REPORT ELECTRONICALLY SIGNED IN OTHER VENDOR SYSTEM Blair Cooley MD IMG XR PROCEDURES Final Resu lt documented in this encounter Visit Diagnoses Not on filedocumented in this encounter Care Teams Head Screen Worker Relationship Specialty Start Date End Date Clara [place] PA [address] [place] [address] PCP - General Nurse Practitioner 04/05/19 documented as of this encounter
--- OUTSIDE RECORDS SUMMARY | 2024-03-02 04:25 | XMS_ITS | Encounter Summary ---
Author Organization [facility] Address [address] [place] [address] Phone Care Team Providers Care Indexer Name Role Phone Clara [place] Primary Care Provider + Jasper Canchola MD Unavailable [phone] Alexis Lopez MD Unavailable [phone] Kip Del Rio MD Unavailable [phone] Encounter Details Date Type Department Care Team (Late st Contact Info) Description 05/12/2019 1:10 PM SLAB DEPILER OPERATOR Office Visit [facility] [address] [place] [address] [place] Social History Tobacco Use Types Packs/Day Years Used Date Smoking Tobacco: Never Smokeless Tobacco: Never Sex and Gender Information Value Date Recorded Sex Assigned at Not on file Legal Sex Male 1:17 AM SLAB DEPILER OPERATOR Gender Identity Not on file Sexual Orientation Straight 09/22/2019 8: 21 PM CDT documented as of this encounter Plan of Treatment Not on file documented as of this encounter Procedures Procedure Name Priority Date/Time Associated Diagnosis Comments CYTOLOGY Routine 05/12/2019 12:00 AM SLAB DEPILER OPERATOR documented in this encounter Results * Cytology (05/12/2019 12:00 AM SLAB DEPILER OPERATOR) 05/12/2019 05/12/2019 12: 07 PM SLAB DEPILER OPERATOR Narrative 05/16/2019 10:09 AM SLAB DEPILER OPERATOR Results in EPIC best viewed via PDF link [facility] Pathology Consult Service [address] [place], [place] [id number] CYTOPATHOLOGY REPORT * Consult Report * FINAL Patient Name: ??KWAKU BULLOCK Address: ??[address] [place], [place] ??[address] Gender: ??M : ??1965 (Age: 54) ? Hospital #: ??[id number] Patient Type: ??WU Location: ??[facility] OUTREAC Taken: ??05/12/2019 Received: ??05/12/2019 Accessioned: ??2019 Reported: ??05/16/2019 Physician(s): ?? Jasper Canchola M.D. [facility] Department of Pathology [facility] [place] [address] P: [phone] F: [phone] ? Final Diagnosis Consult material received from [place], [place] ([id number]; 05/06/2019) Lymph node, subcarinal, fine needle aspiration: [...] carcinoid. ??Rebiopsy is required for definitive diagnosis. [facility]/05/16/2019 09:57 By this signature, I attest that the above diagnosis is based upon my personal examination of the slides(and/or other material indicated in the diagnosis). Report Electronically Reviewed and Signed Out By Ian Cornejo DO 05/16/2019 10:09:44 ? Material Received Received from [facility], [facility], [place], [place] are seven slides labeled [id number]. The corresponding report is received. Selected slide(s) may be digitally scanned for our files, and all materials are returned to the referring institution, along with a copy of our final report. Gross Description A. ??Subcarinal lymph node, EBUS-guided FNA (OSC [id number]; 05/06/2019): 1 H&E cell block slide, 4 immunostained cell block slides, 2 smears (apm) ?? Clinical Diagnosis and History The patient is a 54 year old man with a right lower lobe pulmonary nodule and an enlarged subcarinal lymph node. Any testing required for diagnostic purposes was performed in the Department of Pathology and Immunology at [facility], [address] [place] [address] CLIA # [id number] The performance characteristics of the testing cited in this report (if any) were determined by the ??[facility] Department of Pathology and Immunology [facility], as part of an ongoing quality assurance coach program and in compliance with federally mandated [...] and the performance characteristics determined by the [facility], [facility] Department of Pathology and Immunology. ??It has not been cleared or approved by the U.S. Food and Drug Administration. ??Any test designated as LDT was developed and its performance characteristics determined by [facility]. It has not been [...] on filedocumented in this encounter Care Teams Indexer Relationship Specialty Start Date End Date Clara [place] PA [address] [place] [address] PCP - General Nurse Practitioner 04/05/19 Jasper Canchola MD [address] [place] [address] Surgeon Thoracic Surgery 05/11/19 Alexis Lopez MD [address] [address] Bank President Pulmonary Disease 05/11/19 Kip Del Rio MD 4921 [facility] [address] [place] [address] Medical Oncologist/Melting Furnace Skimmer Hematology and Oncology 05/11/19 documented as of this encounter
--- OUTSIDE RECORDS SUMMARY | 2024-03-02 04:25 | XMS_ITS | Encounter Summary ---
Author Organization [facility] Address [address] [place] [address] Care Team Providers Care Precision Grinder External Name Role Phone Clara Stanley Primary Care Provider + Jasper Canchola MD Unavailable Alexis Lopez MD Unavailable Kip Del Rio MD Unavailable Jacob Flynn MD Unavailable [phone] Encounter Details Date Type Department Care Team (Latest Contact Info) Description 05/26/2019 6:39 AM CDT - 05/30/2019 5:14 PM CDT Hospital Encounter [facility] [address] [place] [address] Jasper Canchola MD [address] [id number] [place] [address] 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 No Discharge Disposition Home Equipment/Provider Needs No Home Needs Identified Discharge Additional Assistance Does the patient need discharge transport arranged? No Post Discharge Care Provider Post Discharge Care Plan Next level of care provider has access to complete EMR * Clementina Walker SQUARE SHEAR OPERATOR - 05/30/2019 11:00 AM CDT Pain Service [...] Irwin- Acute Pain Service Department of Anesthesiology [facility], [facility] 05/30/2019 12:17 PM * [...] injury. Diet: ADAT Pain control: Epidural, D/c'd INGREDIENT SPECIALIST. POPM IS Bowel reg DVT prophylaxis [...] injury. Diet: ADAT Pain control: Epidural, D/c'd INGREDIENT SPECIALIST. POPM D/c IVF IS Bowel reg DVT [...] control currently with epidural @10ml/hr and HM INGREDIENT SPECIALIST. Patient plans to get up andwalk this afternoon. Patient has received 9.8mg of HM through INGREDIENT SPECIALIST in last 24 hours. Objective: Temp: [36.4 [...] management - primary team planning on discontinuing INGREDIENT SPECIALIST and switching to oral medications today Epidural [...] mg, intravenous, Q10 Min PRN, Adri Perepekhina-Belonog, SQUARE SHEAR OPERATOR ??? naloxone (NARCAN) 0.4 mg/mL injection 0.04-0.4 [...] injury. Diet: ADAT Pain control: Epidural, D/c INGREDIENT SPECIALIST. POPM IVF: LR at 75 IS Bowel reg DVT prophylaxis CT to WS D/c'd beach, voiding D/c'd A-line, d/c'd OU status John Fernando Cosigned by Jasper Canchola MD at 05/29/2019 11:58 AM CDT * Shelby Tyson RN - 05/27/2019 1:59 PM CDT 05/27/19 2553 Information Information Obtained From Patient Prior to Admission Primary Caregiver Self Support System Spouse/Significant Other Support system contact info (name, phone, availablity) Pavan Kulkarni [phone] Durable Medical Equipment None Living Arrangements Spouse/significant other Type of Residence Private residence Steps in home? 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 Admit Source: home Problem/Goal: Patient awaits further evaluation for medical discharge needs and home needs. CM willassist patient with home needs as indicated and identified for safe discharge planning. Transportation: Cecilia Cuevas [phone] Through the course of our work I [...] Adult Diet Regular Diet effective now Question: ([facility]) Diet type Answer: Regular 05/27/19 0736 Assessment /Plan Impression: Tolerating oral diet; no N/V, NAD [] Pain is well controlled [x] Pain is moderately controlled [] Pain is poorly controlled Plan: [x] Continue multi-modal pain medication regimen as ordered. [x] Encourage pulmonary toilet [x] Continue bowel regimen. Epidural Local Anesthetic Infusion: [x] Increase to 10 ml/hr IV INGREDIENT SPECIALIST demand amount: [x] No Change Thank You [...] Irwin- Acute Pain Service Department of Anesthesiology [facility], [facility] 05/27/2019 12:55 PM * John [...] tablet, oral, BID, 1 tablet at 05/26/19 3527 OR senna 1.76 mg/mL syrup 8.8 mg, [...] intermedius injury. Diet: ADAT Pain control: Epidural, INGREDIENT SPECIALIST. Increase epidural rate. IVF: LR at 75 [...] injury. Diet: CLD, ADAT Pain control: Epidural, INGREDIENT SPECIALIST, Toradol IVF: LR at 75 IS Ancef [...] Ishan Pitts MD - 2019 1:16 PM PRE OWNED SALES CONSULTANT Images from the original note were not included. Center for Preoperative Assessment and Planning Preoperative Evaluation Record Evaluation type/location: [facility] Planned procedure site: [facility] (Pods 2/3/5/PBX INSPECTOR) Date: 05/13/19 Anesthesia Evaluation Mp Kulkarni is [...] status is STOP-Bang=4 suggesting moderate risk for LEONRO, bicarbonate value pending. The patient is at [...] and grade I/ Negative for peripheral edema ([place] [facility]) Pulmonary Exam: LCTA, bilat EENT Exam: [...] and agree to proceed. All questions answered. OWNED SALES CONSULTANT OWNED SALES CONSULTANT OWNED SALES CONSULTANT documented in this encounter Procedure Notes * [...] removed in 7-10 days by any MD, SQUARE SHEAR OPERATOR, elevator service mechanic. Myrtle Haji MD documented in this encounter Nursing Notes * Imelda Ramesh RN - 05/30/2019 11:35 AM CDT Patient awaiting sign out from anesthesia. VSS as charted. He is awake, alert and oriented and denying pain. Will continue to monitor until transport back to room . 1235 Patient about to transport [facility] to [facility], but was stopped as per [...] Resident - Observing Anesthesiologist: Sam Castro MD CONTROLS DESIGNER: Tirso Turner CRNA Assistant Casino Shift Manager: Matti Chau RN Scrub: Rik Fernandez RN Assistant Casino Shift Manager Second: Rickey Booker RN DATE OF SURGERY [...] Diagnostic flexible bronchoscopy. Surgeon Jasper Canchola MD Citrus Peeler Amy Chun MD Anesthesia General. Clinical Note [...] no complications noted. Job ID/VF Job ID: [id number] * Plan of Care - Axel Aguirre [...] CDTAssociated Problem(s): LEIDA (acute kidney injury) (CMS/HCC) ([facility]) Elevated Cr of 1.35. Hyponatremia to [...] Ambulation; Transition to PO pain meds; Stop INGREDIENT SPECIALIST Problem: Health Behavior: Goal: Understanding of discharge [...] rest; c/o some pain with coughing. IS AC=[id number]. Administered Acapella/PEP therapy; patient capable of self [...] A-emigdio Feel free to contact me at [phone] with further inquiries' * Assessment & Plan [...] injury. Diet: ADAT Pain control: Epidural, D/c'd INGREDIENT SPECIALIST. POPM IS Bowel reg DVT prophylaxis [...] Resident - Assisting Anesthesiologist: Taj Perkins MD Assistant Casino Shift Manager: Rickey Booker RN; Deniz Livingston, KAMILA; Ruy [...] plus modifier 22. Surgeon Jasper Canchola MD Citrus Peeler Amy Chun MD, MPHS Anesthesia General. Clinical [...] entire operative procedure. Job ID/VF Job ID: [id number] documented in this encounter Plan of Treatment [...] CDT) Sodium 129(L) 135 - 145 mmol/L [facility] Potassium, pl 3.6 3.3 - 4.9 mmol/L [facility] Chloride 98 97 - 110 mmol/L [facility] CO2 23 22 - 32 mmol/L [facility] Anion gap 8 2 - 15 mmol/L [facility] BUN 10 8 - 25 mg/dL [facility] Creatinine 0.70(L) 0.80 - 1.30 mg/dL [facility] Glucose 118 70 - 199 mg/dL [facility] Comment: Interpretive Data Fasting glucose >/= [...] 2017. Calcium 9.0 8.5 - 10.3 mg/dL [facility] Blood specimen (specimen) 05/30/2019 1:12 AM CDT 05/30/2019 1:25 AM CDT us Jasper Canchola MD LAB BLOOD ORDERABLES Marianne conde Result [facility] [place] [address] * XR Chest 1 View (05/29/2019 10:19 [...] CDT) WBC 20.6(H) 3.8 - 9.9 K/cumm [facility] Hgb 10.2(L) 13.0 - 17.5 g/dL [facility] Hct 30.6(L) 38.9 - 50.3 % [facility] Plt 288 150 - 400 K/cumm [facility] MPV 12.1 9.1 - 12.3 fL [facility] RBC 3.61(L) 4.30 - 5.80 M/cumm [facility] MCV 84.8 81.3 - 96.4 fL [facility] MCH 28.3 27.1 - 33.3 pg [facility] MCHC 33.3 32.3 - 35.7 g/dL [facility] RDW CV 13.9 11.1 - 14.9 % [facility] RDW SD 43.4 35.7 - 48.1 fL [facility] NRBC abs 0.00 0.00 - 0.01 K/cumm [facility] Blood specimen (specimen) 05/28/2019 10:57 PM CDT 05/28/2019 11:22 PM CDT Estrellita Reyes NP LAB BLOOD ORDERABLES Final Result [facility] [place] [address] * (ABNORMAL) Basic metabolic panel (05/28/2019 10:57 PM CDT) Sodium 131(L) 135 - 145 mmol/L [facility] Potassium, pl 3.8 3.3 - 4.9 mmol/L [facility] Chloride 100 97 - 110 mmol/L [facility] CO2 23 22 - 32 mmol/L [facility] Anion gap 8 2 - 15 mmol/L [facility] BUN 16 8 - 25 mg/dL [facility] Creatinine 0.77(L) 0.80 - 1.30 mg/dL [facility] Glucose 125 70 - 199 mg/dL [facility] Comment: Interpretive Data Fasting glucose >/= [...] Reyes NP LAB BLOOD ORDERABLES Final Result [facility] [place] [address] * XR Chest 1 View (05/28/2019 5:27 [...] by: Kathy Johnson M.D. us Estrellita Reyes SQUARE SHEAR OPERATOR IMG XR PROCEDURES Final Re sult * (ABNORMAL) Basic metabolic panel (05/27/2019 9:53 PM CDT) Sodium 127(L) 135 - 145 mmol/L [facility] Comment:Repeated and Verifie d Potassium, pl 3.7 3.3 - 4.9 mmol/L [facility] Chloride 95(L) 97 - 110 mmol/L [facility] Comment:Repeated and Verifie d CO2 25 22 - 32 mmol/L [facility] Anion gap 7 2 - 15 mmol/L [facility] BUN 20 8 - 25 mg/dL [facility] Creatinine 1.35(H) 0.80 - 1.30 mg/dL [facility] Comment:Repeated and Verifie d Glucose 123 70 - 199 mg/dL [facility] Comment: Interpretive Data Fasting glucose >/= [...] 2017. Calcium 8.9 8.5 - 10.3 mg/dL [facility] Blood specimen (specimen) 05/27/2019 9:53 PM CDT 05/27/2019 10:02 PM CDT us Myrtle Haji MD LAB BLOOD ORDERABLES Final Resul t [facility] [place] [address] * (ABNORMAL) CBC without differential (05/27/2019 9:53 PM CDT) [facility] WBC 26.1(H) 3.8 - 9.9 K/cumm [facility] Hgb 11.0(L) 13.0 - 17.5 g/dL [facility] Hct 34.4(L) 38.9 - 50.3 % [facility] Plt 301 150 - 400 K/cumm [facility] MPV 11.5 9.1 - 12.3 fL [facility] RBC 3.88(L) 4.30 - 5.80 M/cumm [facility] MCV 88.7 81.3 - 96.4 fL [facility] MCH 28.4 27.1 - 33.3 pg [facility] MCHC 32.0(L) 32.3 - 35.7 g/dL [facility] RDW CV 14.4 11.1 - 14.9 % [facility] RDW SD 46.1 35.7 - 48.1 fL [facility] NRBC abs 0.00 0.00 - 0.01 K/cumm [facility] Blood specimen (specimen) 05/27/2019 9:53 PM CDT 05/27/2019 10:02 PM CDT us Myrtle Haji MD LAB BLOOD ORDERABLES Final Resul t [facility] [place] [address] * (ABNORMAL) Basic metabolic panel (05/26/2019 11:15 PM CDT) [facility] Sodium 136 135 - 145 mmol/L [facility] Potassium, pl 4.0 3.3 - 4.9 mmol/L [facility] Chloride 106 97 - 110 mmol/L [facility] CO2 23 22 - 32 mmol/L [facility] Anion gap 7 2 - 15 mmol/L [facility] BUN 11 8 - 25 mg/dL [facility] Creatinine 0.66(L) 0.80 - 1.30 mg/dL [facility] Glucose 166 70 - 199 mg/dL [facility] Comment: Interpretive Data Fasting glucose >/= [...] 2017. Calcium 9.0 8.5 - 10.3 mg/dL [facility] Blood specimen (specimen) 05/26/2019 11:15 PM CDT 05/26/2019 11:49 PM CDT Jasper Canchola MD LAB BLOOD ORDERABLES Marianne conde Result [facility] [place] [address] * (ABNORMAL) CBC without differential (05/26/2019 11:15 PM CDT) WBC 24.3(H) 3.8 - 9.9 K/cumm [facility] Hgb 11.6(L) 13.0 - 17.5 g/dL [facility] Hct 35.9(L) 38.9 - 50.3 % [facility] Plt 291 150 - 400 K/cumm [facility] MPV 11.7 9.1 - 12.3 fL [facility] RBC 4.16(L) 4.30 - 5.80 M/cumm [facility] MCV 86.3 81.3 - 96.4 fL [facility] MCH 27.9 27.1 - 33.3 pg [facility] MCHC 32.3 32.3 - 35.7 g/dL [facility] RDW CV 13.8 11.1 - 14.9 % [facility] RDW SD 43.8 35.7 - 48.1 fL [facility] NRBC abs 0.00 0.00 - 0.01 K/cumm [facility] Blood specimen (specimen) 05/26/2019 11:15 PM CDT 05/26/2019 11:49 PM CDT Jasper Canchola MD LAB BLOOD ORDERABLES Marianne l Result Performing Organization Address [facility] de Phone Number [facility] [place] [address] * (ABNORMAL) Blood gas, arterial (05/26/2019 11:14 PM CDT) pH, Art 7.32(L) 7.35 - 7.45 [facility] PCO2, Arterial 41 35 - 45 mmHg [facility] PO2, Arterial 77(L) 83 - 108 mmHg [facility] HCO3 Art (Calculated) 22 20 - 30 mmol/L [facility] BE, art -5 mmol/L [facility] Comment: Interpretive Data No Reference Range Established Current Interpretive Data was last revised on 2017 O2 Sat Art (Measured) 95 90 - 95 % [facility] Blood specimen (specimen) 05/26/2019 11:14 PM CDT 05/26/2019 11:23 PM CDT Jasper Canchola MD LAB BLOOD ORDERABLES Marianne l Result Performing Organization Address [facility] de Phone Number [facility] [place] [address] * (ABNORMAL) Basic metabolic panel (05/26/2019 7:49 PM CDT) Sodium 139 135 - 145 mmol/L [facility] Potassium, pl 3.8 3.3 - 4.9 mmol/L [facility] Chloride 110 97 - 110 mmol/L [facility] CO2 21(L) 22 - 32 mmol/L [facility] Anion gap 8 2 - 15 mmol/L [facility] BUN 11 8 - 25 mg/dL [facility] Creatinine 0.68(L) 0.80 - 1.30 mg/dL [facility] Glucose 155 70 - 199 mg/dL [facility] Comment: Interpretive Data Fasting glucose >/= [...] 2017. Calcium 9.1 8.5 - 10.3 mg/dL [facility] Blood specimen (specimen) 05/26/2019 7:49 PM CDT 05/26/2019 8:13 PM CDT Jasper Canchola MD LAB BLOOD ORDERABLES aMrianne conde Result [facility] [place] [address] * (ABNORMAL) CBC without differential (05/26/2019 7:49 PM CDT) WBC 25.0(H) 3.8 - 9.9 K/cumm [facility] Hgb 12.0(L) 13.0 - 17.5 g/dL [facility] Hct 37.1(L) 38.9 - 50.3 % [facility] Plt 288 150 - 400 K/cumm [facility] MPV 11.6 9.1 - 12.3 fL [facility] RBC 4.24(L) 4.30 - 5.80 M/cumm [facility] MCV 87.5 81.3 - 96.4 fL [facility] MCH 28.3 27.1 - 33.3 pg [facility] MCHC 32.3 32.3 - 35.7 g/dL [facility] RDW CV 13.9 11.1 - 14.9 % [facility] RDW SD 45.0 35.7 - 48.1 fL [facility] NRBC abs 0.00 0.00 - 0.01 K/cumm [facility] Blood specimen (specimen) 05/26/2019 7:49 PM CDT 05/26/2019 8:13 PM CDT Jasper Canchola MD LAB BLOOD ORDERABLES Marianne l Result [facility] [place] [address] * XR Chest 1 View - in [...] resection) 05/26/2019 12:30 PM CDT Narrative PATHOLOGY [facility] - 06/02/2019 11:23 PM CDT EPIC results best viewed via link to PDF [facility] Ama Stark Laboratory of Surgical [place] [address] SURGICAL PATHOLOGY REPORT FINAL WITH ADDENDUM Patient Name: ?? MP KULKARNI Gender: ??M : ??1965 (Age: 54) Address: ??[address] [place] [address] Hospital #: ??[id number] Taken:05/26/2019 Received:05/26/2019 Reported: 06/02/2019 Patient Type: [facility] Inpatient ?? Service: Cardiothoracic Location: [place] [address] Physician(s): ??Jasper Canchola M.D. KALPANA Lema M.D. [...] lung, with prior node biopsies showing metastases ([id number]). ??Operative procedure: Thoracotomy, right lower lobectomy, and [...] determined by the Surgical Pathology Department at [facility] as part of an ongoing chemistry quality control analyst program and in compliance with federally mandated [...] determined by the Surgical Pathology Department of [facility]. ??It has not been cleared or approved by the U. S. Food and Drug Administration. IMAGES AND SCANNED DOCUMENTS, IF INCLUDED, ONLY VIEWABLE IN PDF VERSION OF REPORT Jasper Canhcola MD LAB PATHOLOGY ORDERABLES Final Result PATHOLOGY [facility] 3rd Floor [place], [place] [phone] documented in this encounter Visit Diagnoses Diagnosis [...] (0.2 mg/mL) infusion (premix) Continuous dose: None, INGREDIENT SPECIALIST dose: 0.2 mg, INGREDIENT SPECIALIST lockout: 10 Minutes, 1 hour limit: Other [...] Du Anderson RN)1200 (Rate/Dose Verify - Provider: uD Anderson RN)1300 (Rate/Dose Verify - Provider: Du [...] mg/mL) infusion (premix) (CANCELED) Continuous dose: None, INGREDIENT SPECIALIST dose: 0.2 mg, INGREDIENT SPECIALIST lockout: 10 Minutes, 1 hour limit: Other [...] (Given - Provider: Du Anderson RN) 0930 ([facility] Hold - Provider: Automatic Transfer Provider - Reason: Patient not available)1257 ([facility] Unhold - Provider: Automatic Transfer Provider) lidocaine [...] over 30 seconds., Indications: Opioid Toxicity 0930 ([facility] Hold - Provider: Automatic Transfer Provider - Reason: Patient not available)1257 ([facility] Unhold - Provider: Automatic Transfer Provider) ondansetron (ZOFRAN) injection 4 mg 4 mg, intravenous, Administer over 2 Minutes, Every 6 hours PRN, nausea, vomiting, Starting on Priscila 05/26/19 at 2127, Administer no sooner than 6 hours after last dose. , Indications: Nausea and Vomiting 0930 ([facility] Hold - Provider: Automatic Transfer Provider - Reason: Patient not available)1257 ([facility] Unhold - Provider: Automatic Transfer [...] Axel Aguirre RN)0748 (Given - Provider: Matteo Hernandez RN)0930 (MAY [...] 05/27/2019 documented in this encounter Care Teams Precision Grinder External Relationship Specialty Start Date End Date Clara Stanley PA [address] [place] [address] PCP - General Nurse Practitioner 04/05/19 Jasper Canchola MD [address] [place] [address] Surgeon Thoracic Surgery 05/11/19 Alexis Lopez MD [address] [address] Cook Ship Pulmonary Disease 05/11/19 Kip Del Rio MD [address] [facility] [address] [place] [address] Medical Oncologist/Dumper [employer] Hematology and Oncology 05/11/19 Jacob Flynn MD [address] [facility] [address] [place] [address] Radiation Oncologist Radiation Oncology 05/25/19 documented as of this encounter
--- OUTSIDE RECORDS SUMMARY | 2024-03-02 04:25 | XMS_ITS | Encounter Summary ---
Author Organization [facility] Address [address] [place] [address] Phone Care Team Providers Care Vba Programmer Name Role Phone Clara Stanley Primary Care Provider + Jasper Canchola MD Unavailable Alexis Lopez MD Unavailable Kip Del Rio MD Unavailable Jacob Flynn MD Unavailable Encounter Details Date Type Department Care Team (Late st Contact Info) Description 05/24/2019 Orders Only [facility] Oncology [address] [facility] Advanced Medicine 7th [place] [address] [place] [address] Krystal Bowen BS Malignant neoplasm of lung, [...] Legal Sex Male 1:17 AM SOCIAL SCIENCE INSTRUCTOR Gender Identity Not on file Sexual [...] Primary documented in this encounter Care Teams Vba Programmer Relationship Specialty Start Date End Date Clara Stanley PA [address] [place] [address] PCP - General Nurse Practitioner 04/05/19 Jasper Canchola MD [address] [place] [address] Surgeon Thoracic Surgery 05/11/19 Alexis Lopez MD [address] [address] Business Development Engineer Pulmonary Disease 05/11/19 Kip Del Rio MD [address] [facility] [address] [place] [address] Medical Oncologist/Hide Cooking Operator Hematology and Oncology 05/11/19 Jacob Flynn MD [address] [facility] [address] [place] [address] Radiation Oncologist Radiation Oncology 05/25/19 documented as of this encounter
--- OUTSIDE RECORDS SUMMARY | 2024-03-02 04:25 | XMS_ITS | Encounter Summary ---
Author Organization [facility] Facility Care Team Providers Care Lipcoat Sprayer Name Role Phone Clara Stanley Primary Care Provider + Jasper Canchola MD Unavailable [phone] Alexis Lopez MD Unavailable [phone] Kip Del Rio MD Unavailable [phone] Jacob Flynn MD Unavailable Encounter Details Date [...] on file Legal Sex Male 1:17 AM PARTS LISTER Gender Identity Not on file Sexual Orientation Straight 09/22/2019 8: 21 PM CDT documented as of this encounter Plan of Treatment Not on file documented as of this encounter Visit Diagnoses Not on filedocumented in this encounter Care Teams Lipcoat Sprayer Relationship Specialty Start Date End Date Clara Stanley PA [address] [place] [address] PCP - General Nurse Practitioner 04/05/19 Jasper Canchola MD [address] [place] [address] [id number] Surgeon Thoracic Surgery 05/11/19 Alexis Lopez MD [address] [facility] [facility] [address] [place] [address] [place] [address] Surfacer Pulmonary Disease 05/11/19 Kip Del Rio MD [address] [place], [place] [id number] Medical Oncologist/Automotive Internet Sales Consultant Hematology and Oncology 05/11/19 Jacob Flynn MD [address] [place], [place] [phone] Radiation Oncologist Radiation Oncology 05/25/19 documented as of this encounter
--- OUTSIDE RECORDS SUMMARY | 2024-03-02 04:25 | XMS_ITS | Encounter Summary ---
Author Organization [facility] Facility Care Team Providers Care Exercise Physiology Professor Name Role Phone Clara Stanley Primary Care Provider + Jasper Canchola MD Unavailable [phone] Alexis Lopez MD Unavailable [phone] Kip Del Rio MD Unavailable [phone] Encounter Details Date Type Department Care Team (Latest Contact Info) Description 05/12/2019 Travel Social History Tobacco Use Types Packs/Day Years Used Date Smoking Tobacco: Never Smokeless Tobacco: Never Sex and Gender Information Value Date Recorded Sex Assigned at Not on file Legal Sex Male 1:17 AM PAINT GRINDER Gender Identity Not on file Sexual Orientation Straight 09/22/2019 8: 21 PM CDT documented as of this encounter Plan of Treatment Not on file documented as of this encounter Visit Diagnoses Not on filedocumented in this encounter Care Teams Exercise Physiology Professor Relationship Specialty Start Date End Date Clara Stanley PA [address] [place] [address] PCP - General Nurse Practitioner 04/05/[address] [facility] [place] [address] Surgeon Thoracic Surgery 05/11/19 Alexis Lopez MD [address] [place] [address] Truck Loader And Unloader Pulmonary Disease 05/11/19 Kip Del Rio MD [address] [facility] [address] [place] [address] Medical Oncologist/Vp Delivery Hematology and Oncology 05/11/19 documented as of this encounter
--- OUTSIDE RECORDS SUMMARY | 2024-03-02 04:25 | XMS_ITS | Encounter Summary ---
Author Organization [facility] Address [address] [facility] [address] [place] [address] Care Team Providers Care Marine Chronometer Assembler Name Role Phone Clara Stanley Primary Care Provider + Encounter Details Date Type Department Care Team (Late st Contact Info) Description 05/04/2019 Telephone [facility] Pulmonology [address] [facility] [address] [place] [address] Yolanda Segal RN Social History Tobacco Use Types Packs/Day Years Used Date Smoking Tobacco: Never Smokeless Tobacco: Never Sex and Gender Information Value Date Recorded Sex Assigned at Not on file Legal Sex Male 1:17 AM GETTER FILLER Gender Identity Not on file Sexual Orientation Straight 09/22/2019 8: 21 PM CDT documented as of this encounter Miscellaneous Notes * Telephone Encounter - Yolanda Segal RN - 05/04/2019 12:18 PM GETTER FILLER Pt has been scheduled for a bronch with ebus on 05/06/19 @ 0945 with pretesting on 05/05/19 @ 1110.Pt and were notified while in office and verbalized understanding. Orders have been sent. ER FILLER documented in this encounter Plan of Treatment Not on file documented as of this encounter Visit Diagnoses Not on filedocumented in this encounter Care Teams Marine Chronometer Assembler Relationship Specialty Start Date End Date Clara Stanley PA [address] [place] [address] PCP - General Nurse Practitioner 04/05/19 documented as of this encounter
--- OUTSIDE RECORDS SUMMARY | 2024-03-02 04:26 | XMS_ITS | Encounter Summary ---
Author Organization [facility] Facility Care Team Providers Care Chip Silo Tender Name Role Phone Clara Stanley Primary Care Provider + Encounter Details Date Type Department Care Team (Latest Contact Info) Description 05/04/2019 Travel Social History Tobacco Use Types Packs/Day Years Used Date Smoking Tobacco: Never Smokeless Tobacco: Never Sex and Gender Information Value Date Recorded Sex Assigned at Not on file Legal Sex Male 1:17 AM BUTT PRESSER Gender Identity Not on file Sexual Orientation Straight 09/22/2019 8: 21 PM CDT documented as of this encounter Plan of Treatment Not on file documented as of this encounter Visit Diagnoses Not on filedocumented in this encounter Care Teams Chip Silo Tender Relationship Specialty Start Date End Date Clara Stanley PA [address] [place] [address] PCP - General Nurse Practitioner 04/05/19 documented as of this encounter
--- OUTSIDE RECORDS SUMMARY | 2024-03-02 04:26 | XMS_ITS | Encounter Summary ---
Author Organization [facility] Address [address] [facility] [address] [place] [address] Care Team Providers Care Ball Shagger Name Role Phone Clara Stanley Primary Care Provider + Jasper Canchola MD Unavailable Alexis Lopez MD Unavailable Kip Del Rio MD Unavailable Jacob Flynn MD Unavailable Encounter Details Date Type Department Care Team (Late st Contact Info) Description 03/17/2019 Orders Only [facility] Health Information Management [address] [place] [address] Scanning, Provider Social History Tobacco Use Types Packs/Day Years Used Date Smoking Tobacco: Never Assessed Sex and Gender Information Value Date Recorded Sex Assigned at Not on file Legal Sex Male 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 Gender Identity Not on file [...] on filedocumented in this encounter Care Teams Ball Shagger Relationship Specialty Start Date End Date Clara Stanley PA [address] [place] [address] PCP - General Nurse Practitioner 04/05/19 Jasper Canchola MD [address] [place] [address] Surgeon Thoracic Surgery 05/11/19 Alexis Lopez MD [address] [address] Shop Worker Pulmonary Disease 05/11/19 Kip Del Rio MD [address] [facility] [address] [place] [address] Medical Oncologist/Breaker Operator Hematology and Oncology 05/11/19 Jacob Flynn MD [address] [facility] [address] [place] [address] Radiation Oncologist Radiation Oncology 05/25/19 documented as of this encounter
--- OUTSIDE RECORDS SUMMARY | 2024-03-02 04:26 | XMS_ITS | Encounter Summary ---
Author Organization [facility] Address [address] [facility] [address] [place] [address] Care Team Providers Care Manager Garden Name Role Phone Clara Stanley Primary Care Provider + Jasper Canchola MD Unavailable Alexis Lopez MD Unavailable Kip Del Rio MD Unavailable Jacob Flynn MD Unavailable [phone] Encounter Details Date Type Department Care Team (Late st Contact Info) Description 04/09/2019 Orders Only [facility] [place] [place] Health Information Management [address] [place] [address] Scanning, Provider Social History Tobacco Use Types Packs/Day Years Used Date Smoking Tobacco: Never Assessed Sex and Gender Information Value Date Recorded Sex Assigned at Not on file Legal 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 Gender Identity Not on file Sexual [...] filedocumented in this encounter Care Teams Manager Garden Relationship Specialty Start Date End Date Clara Stanley PA [address] [place] [address] PCP - General Nurse Practitioner 04/05/19 Jasper Canchola MD [address] [place] [address] Surgeon Thoracic Surgery 05/11/19 Alexis Lopez MD [address] [address] Mainframe Architect Pulmonary Disease 05/11/19 Kip Del Rio MD [address] [facility] [address] [place] [address] Medical Oncologist/Stove Cleaner Hematology and Oncology 05/11/19 Jacob Flynn MD [address] [facility] [address] [place] [address] Radiation Oncologist Radiation Oncology 05/25/19 documented as of this encounter
--- OUTSIDE RECORDS SUMMARY | 2024-03-02 04:26 | XMS_ITS | Encounter Summary ---
Author Organization [facility] Address [address] [facility] [address] [place] [address] Care Team Providers Care Chemistry Intern Name Role Phone Clara Stanley Primary Care Provider + Encounter Details Date Type Department Care Team (Late st Contact Info) Description 04/05/2019 Telephone [facility] Pulmonology [address] [facility] [address] [place] [phone] Alexis Lopez MD [address] [facility] [address] [place] [address] Social History Tobacco Use Types Packs/Day Years Used Date Smoking Tobacco: Never Assessed Sex and Gender Information Value Date Recorded Sex Assigned at Not on file 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BOTTLE MACHINES Gender Identity Not on file Sexual Orientation Straight 09/22/2019 8: 21 PM CDT documented as of this encounter Miscellaneous Notes * Telephone Encounter - Anju Salgado - 04/05/2019 2:27 PM CST Apt made with patient RVISOR BOTTLE MACHINES * Telephone Encounter - Alexis Lopez MD - 04/05/2019 9:00 AM SUPERVISOR BOTTLE MACHINES Okay with me to see patient within the next 2-3 weeks. RVISOR BOTTLE MACHINES * Telephone Encounter - Anju Salgado - [...] having the CT report sent over from [facility]. Faith [phone] RVISOR BOTTLE MACHINES documented in this encounter Plan of Treatment Not on file documented as of this encounter Visit Diagnoses Not on filedocumented in this encounter Care Teams Chemistry Intern Relationship Specialty Start Date End Date Clara Stanley PA [address] [place] [address] PCP - General Nurse Practitioner 04/05/19 documented as of this encounter
--- OUTSIDE RECORDS SUMMARY | 2024-03-02 04:26 | XMS_ITS | Encounter Summary ---
Author Organization [facility] Address [address] [facility] [address] [place] [address] Care Team Providers Care Latex Spooler Name Role Phone Clara Stanley Primary Care Provider + Reason for Visit * Reason Comments Follow-up PET Encounter Details Date Type Department Care Team (Late st Contact Info) Description 05/04/2019 12:00 PM HAIR SPRING CUTTER Office Visit [facility] Pulmonology [address] [facility] [address] [place] [phone] Blair Cooley MD [address] [facility] [address] [place] [address] Right lower lobe pulmonary nodule (Primary Dx) Social History Tobacco Use Types Packs/Day Years Used Date Smoking Tobacco: Never Smokeless Tobacco: Never Sex and Gender Information Value Date Recorded Sex Assigned at Not on file Legal Sex Male 1:17 AM HAIR SPRING CUTTER Gender Identity Not on file Sexual Orientation Straight 09/22/2019 8: 21 PM CDT documented as of this encounter Last Filed Vital Signs Vital Sign Reading Time Taken Comments Blood Pressure 172/91 05/04/2019 11:31 AM HAIR SPRING CUTTER Pulse 71 05/04/2019 11:31 AM HAIR SPRING CUTTER Temperature 36.7 ??C (98 ??F) 05/04/2019 11:31 AM HAIR SPRING CUTTER Respiratory Rate 16 05/04/2019 11:31 AM HAIR SPRING CUTTER Oxygen Saturation 99% 05/04/2019 11:31 AM HAIR SPRING CUTTER Inhaled Oxygen Concentration - - Weight 159.7 kg (352 lb) 05/04/2019 11:31 AM HAIR SPRING CUTTER Height 190.5 cm (6' 3 ) 05/04/2019 11:31 AM HAIR SPRING CUTTER Body Mass Index 44 05/04/2019 11:31 AM HAIR SPRING CUTTER documented in this encounter Progress Notes * [...] nodule. 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 Generally feels well. Denies [...] BMP, INR Patient will follow with his regional company hazmat tanker driver post bronchoscopy for further management Note dictated on Hospital line. # [id number] Rendering Provider & Department: Blair Cooley MD THIS NOTE WAS CREATED IN PART WITH THE ASSISTANCE OF [facility] VOICE RECOGNITION SOFTWARE. AUTOMOBILE MECHANIC MOTOR VARIANCES MAY OCCUR. SPRING CUTTER documented in this encounter Plan of Treatment Not on file documented as of this encounter Visit Diagnoses Diagnosis Right lower lobe pulmonary nodule- Primary documented in this encounter Care Teams Latex Spooler Relationship Specialty Start Date End Date Clara Stanley PA [address] [place] [address] PCP - General Nurse Practitioner 04/05/19 documented as of this encounter
--- OUTSIDE RECORDS SUMMARY | 2024-03-02 04:26 | XMS_ITS | Encounter Summary ---
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
--- OUTSIDE RECORDS SUMMARY | 2024-03-02 04:26 | XMS_ITS | Encounter Summary ---
Author Organization [facility] Address [address] [facility] [address] [place] [address] Care Team Providers Care Lift Builder Whole Name Role Phone Clara Stanley Primary Care Provider + Jasper Canchola MD Unavailable Alexis Lopez MD Unavailable Kip Del Rio MD Unavailable Jacob Flynn MD Unavailable Encounter Details Date Type Department Care Team (Late st Contact Info) Description 04/04/2019 Orders Only [facility] Information Management [address] [place] [address] Scanning, Provider Social History Tobacco Use Types Packs/Day Years Used Date Smoking Tobacco: Never Assessed Sex and Gender Information Value Date Recorded Sex Assigned at Not on file Legal 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 Gender Identity Not on file Sexual [...] on filedocumented in this encounter Care Teams Lift Builder Whole Relationship Specialty Start Date End Date Clara Stanley PA [address] [place] [address] PCP - General Nurse Practitioner 04/05/19 Jasper Canchola MD [address] [place] [address] Surgeon Thoracic Surgery 05/11/19 Alexis Lopez MD [address] [address] Weighing Station Operator Pulmonary Disease 05/11/19 Kip Del Rio MD [address] [facility] [address] [place] [address] Medical Oncologist/Pottery Decoration Designer Hematology and Oncology 05/11/19 Jacob Flynn MD [address] [facility] [address] [place] [address] Radiation Oncologist Radiation Oncology 05/25/19 documented as of this encounter
--- OUTSIDE RECORDS SUMMARY | 2024-03-02 04:26 | XMS_ITS | Encounter Summary ---
Author Organization [facility] Address [address] [facility] [address] [place] [address] Care Team Providers Care Microsoft Exchange Architect Name Role Phone Clara Stanley Primary Care Provider + Reason for Referral * Diagnostic Imaging (Routine) - Closed Specialty Diagnoses / Procedures Referred By Erik [email or web address] Referred To Contact Diagnoses Right lower lobe pulmonary nodule Procedures PET/CT FDG Skull to Thigh Alexis Lopez MD [facility] [facility] [address] [place] [address] Phone: tel: fax: [address] [phone] fax: Referral ID Status Reason Start Date Expiration Date Visits Re quested Visits Authorized [id number] Closed 04/27/2019 11/05/2020 2 2 TROTYPE CASTER Reason for Visit * Reason Comments New Patient Encounter Details Date Type Department Care Team (Late st Contact Info) Description 04/27/2019 9:15 AM ELECTROTYPE CASTER Office Visit [facility] Pulmonology [address] [facility] [address] [place] [phone] Alexis oLpez MD [address] [facility] [address] [place] [address] Right lower lobe pulmonary nodule (Primary Dx) Social History Tobacco Use Types Packs/Day Years Used Date Smoking Tobacco: Never Smokeless Tobacco: Never Sex and Gender Information Value Date Recorded Sex Assigned at Not on file Legal Sex Male 1:17 AM ELECTROTYPE CASTER Gender Identity Not on file Sexual Orientation Straight 09/22/2019 8: 21 PM CDT documented as of this encounter Last Filed Vital Signs Vital Sign Reading Time Taken Comments Blood Pressure 130/86 04/27/2019 9:20 AM ELECTROTYPE CASTER Pulse 78 04/27/2019 9:20 AM ELECTROTYPE CASTER Temperature - - Respiratory Rate 18 04/27/2019 9:20 AM ELECTROTYPE CASTER Oxygen Saturation 98% 04/27/2019 9:20 AM ELECTROTYPE CASTER Inhaled Oxygen Concentration - - Weight 160.6 kg (354 lb) 04/27/2019 9:20 AM ELECTROTYPE CASTER Height 190.5 cm (6' 3 ) 04/27/2019 9:20 AM ELECTROTYPE CASTER Body Mass Index 44.25 04/27/2019 9:20 AM ELECTROTYPE CASTER documented in this encounter Progress Notes * [...] pulmonary nodule (Primary) - Pulmonary Function Test -[facility]; Full PFT in PFT Lab, Stress Ox/6 Min Walk Test; Future Rendering Provider & Department: Alexis Lopez MD TROTYPE CASTER documented in this encounter Miscellaneous Notes * Assessment & Plan Note - Alexis Lopez MD - 04/27/2019 9:57 AM ELECTROTYPE CASTER Associated Problem(s): Right lower lobe pulmonary nodule (Deleted) I will order a PET scan and full PFTs for the patient he will follow-up here in 1 week. TROTYPE CASTER documented in this encounter Plan of Treatment [...] 04/27/2019 documented in this encounter Care Teams Microsoft Exchange Architect Relationship Specialty Start Date End Date Clara Stanley PA [address] [place], [place] [phone] PCP - General Nurse Practitioner 04/05/19 documented as of this encounter
--- OUTSIDE RECORDS SUMMARY | 2024-03-02 04:26 | XMS_ITS | Encounter Summary ---
Author Organization [facility] Address [address] [place] [address] Care Team Providers Care Probation Manager Name Role Phone Clara Stanley Primary Care Provider + Reason for Referral * Diagnostic Imaging (Routine) - Closed Specialty Diagnoses / Procedures Referred By Contac t Referred To Contact Diagnoses Right lower lobe pulmonary nodule Procedures PET/CT FDG Skull to Thigh Alexis Lopez MD [address] [facility] [place] [address] [place] [address] Phone: tel: fax: [address] [phone] fax: Referral ID Status Reason Start Date Expiration Date Visits Re quested Visits Authorized [id number] Closed 04/27/2019 11/05/2020 2 2 WALK REPAIRER Encounter Details Date Type Department Care Team (Late st Contact Info) Description 05/03/2019 1:06 PM SIDEWALK REPAIRER Hospital Encounter [facility] OP INTERIM Alexis Lopez MD [address] [facility] [address] [place] [address] Right lower lobe pulmonary nodule Social History Tobacco Use Types Packs/Day Years Used Date Smoking Tobacco: Never Smokeless Tobacco: Never Sex and Gender Information Value Date Recorded Sex Assigned at Not on file Legal Sex Male 1:17 AM SIDEWALK REPAIRER Gender Identity Not on file Sexual [...] Read Routine (OP Routine) 05/03/2019 1:09 PM SIDEWALK REPAIRER documented in this encounter Results * PET/CT TUMOR SKULL-THIGH (05/03/2019 1:09 PM SIDEWALK REPAIRER) Anatomical Region Laterality Modality N/A Positron Emissio n Tomography (PET) 05/03/2019 4:21 PM SIDEWALK REPAIRER Narrative 05/03/2019 7:13 PM SIDEWALK REPAIRER Patient Name: KWAKU BULLOCK ?Ordering Dr: Alexis Lopez MD ?? D.O.B: 1965 ? Exam Date: 05/03/19 ?? 1309 ?? Age: 53 ?Sex: Male ? MR#: [id number] ?? Loc: ? RADIOLOGY REPORT ?? Order #[id number] ?? PET ? PET/CT Skull/Thigh-OP Use Only [...] T: ??05/03/2019 4:55 PM ? Report ID: [id number] ?? Reading Location: ??[id number] ? REPORT ELECTRONICALLY SIGNED IN OTHER VENDOR SYSTEM ?? Resulting Agency Comment O Procedure Note Jose Henderson Jr., MD - 05/03/2019 Patient Name: KWAKU BULLOCK Dr: Alexis Lopez MD D.O.B: 1965 Exam Date: 05/03/19 1309 Age: 53 Sex: Male MR#: [id number] Loc: [facility]#: [id number] RADIOLOGY REPORT Order #[id number] PET PET/CT Skull/Thigh-OP Use Only Signed EXAM [...] Jose Henderson M.D. CH: BRYAN Report ID: [id number] Reading Location: [place] [address] REPORT ELECTRONICALLY SIGNED IN OTHER VENDOR SYSTEM Alexis Lopez MD IMG PET PROCEDURES Final Result documented in this encounter Visit Diagnoses Diagnosis Right lower lobe pulmonary nodule documented in this encounter Orders Imaging Orders Without Results Count Last Order ed Date First Ordered Date PET/CT FDG SKULL TO THIGH 1 05/03/2019 documented in this encounter Care Teams Probation Manager Relationship Specialty Start Date End Date Clara Stanley PA [address] [place] [address] PCP - General Nurse Practitioner 04/05/19 documented as of this encounter
== END 2024-02-27 11:15 | disposition home or self-care (01) ==
PROVIDERS: Emergency Provider Nurse Practitioner Family; PCP Registered Nurse
DX: J10.1 Influenza due to other identified influenza virus with other respiratory manifestations (principal); Z20.822 Contact with and (suspected) exposure to COVID-19; J45.909 Unspecified asthma, uncomplicated; I10 Essential (primary) hypertension; E78.5 Hyperlipidemia, unspecified; Z85.118 Personal history of other malignant neoplasm of bronchus and lung; Z90.2 Acquired absence of lung [part of]
CPT/HCPCS: 87420; 87426; 87804; 99213; G0463